=== PATIENT | female | born 1960 | race Caucasian/White ===

== ENCOUNTER 2022-09-28 20:34 | Emergency (ER) | payer BC, SELFPAY ==
[2022-09-28 20:38] VITALS: BP 169/98; PULSE 92; RESP 18; TEMP 36.6; O2SAT 96; BMI 32.0
--- NOTE | 2022-09-28 20:58 | US_ITS ---
The [address] [address] Patient Name: CARROLL HARDEN MRN: [id number] date: 1960 Sex: F Assigned Patient Location: ER Current Patient Location: ED.MAIN Accession/Order Number: [id number] Exam Date: 09/28/2022 21:01 Report Date: 09/28/2022 23:51 At the request of: REBECA TRAN Procedure: US venous doppler LE LT EXAM: US venous doppler LE LT HISTORY: leg pain COMPARISON: None. TECHNIQUE: High resolution sonography of the left lower extremity and the right iliac vein was performed. FINDINGS: Compression sonography of the right external iliac vein and the left extremity iliac, common femoral, superficial femoral, greater saphenous, small saphenous, popliteal, posterior tibial, peroneal, and anterior tibial veins was performed. These demonstrate normal compression. Duplex Doppler interrogation of these venous segments shows normal waveforms. No abnormal intraluminal echoes are identified to suggest thrombus. IMPRESSION: 1. No evidence of DVT in the imaged left lower extremity lower or right external iliac vein is seen. Electronically authenticated by: Dio MUNIZ Date: 09/28/2022 23:51
--- NOTE | 2022-09-28 21:00 | ED.GENADUL1 ---
HPI - General Adult General Chief complaint: Extremity Injury, Lower Stated complaint: LEFT KNEE PAIN Time Seen by Provider: 09/28/22 20:52 Source: patient Mode of arrival: Wheelchair Limitations: no limitations History of Present Illness HPI narrative: Patient is a 62-year-old female who is presenting to the Emergency Room today with chief complaint of left posterior lower thigh pain, knee pain that radiates down into her left calf. Patient was sent to the Emergency Room by her orthopedic surgeon, Dr. Smith to have a ultrasound done of her left leg to rule out blood clot. Patient takes no blood thinners. Patient has no history of blood clots. Patient has no chest pain or shortness of breath. Patient has minimal swelling to left leg compared to the right. Patient's incisions on the right looks clean, dry, intact. Patient has a follow-up appointment with orthopedic surgeon on Tuesday. Related Data Home Medications Medication Instructions Recorded Confirmed atenolol 50 mg tablet 50 mg PO DAILY 09/28/22 09/28/22 citalopram 40 mg tablet (Celexa) 40 mg PO DAILY 09/28/22 09/28/22 clonazepam 0.5 mg tablet 0.5 mg PO .3 tabs 09/28/22 09/28/22 fluconazole 100 mg tablet 100 mg PO Q24H 09/28/22 09/28/22 glimepiride 4 mg tablet 4 mg PO DAILY 09/28/22 09/28/22 levothyroxine 125 mcg tablet 125 mcg PO DAILY 09/28/22 09/28/22 (Synthroid) metformin 500 mg tablet 500 mg PO BID 09/28/22 09/28/22 nabumetone 1,000 mg tablet 1,000 mg PO BID 09/28/22 09/28/22 (Relafen DS) oxycodone-acetaminophen 5 mg-325 1 tab PO Q6H PRN pain 09/28/22 09/28/22 mg tablet pravastatin 40 mg tablet 40 mg PO DAILY 09/28/22 09/28/22 tizanidine 4 mg tablet 4 mg PO .hs PRN muscle spasticity 09/28/22 09/28/22 Allergies Allergy/AdvReac Type Severity Reaction Status Date / Time hydromorphone [From Dilaudid] Allergy Intermediate Verified 09/28/22 20:42 iodine Allergy Intermediate Verified 09/28/22 20:42 latex Allergy Intermediate Verified 09/28/22 20:42 meperidine [From Demerol] Allergy Intermediate Verified 09/28/22 20:42 sumatriptan [From Imitrex] Allergy Intermediate Verified 09/28/22 20:42 Review of Systems ROS Narrative All systems are negative except as noted/marked. All systems reviewed and otherwise negative. Exam Narrative Exam Narrative: Nurses note and vital signs reviewed and patient is not hypoxic. General: The patient appears well and in no apparent distress. Patient is resting comfortably on cart. Patient is not toxic, lethargic, or listless Skin: Warm, dry, no pallor noted. There is no rash noted. No petechiae, purpura. Head: Normocephalic, atraumatic Eye: Normal conjunctiva, no drainage, EOMI. PERRL Ears, Nose, Mouth, and Throat: oral mucosa is moist. Cardiovascular: Regular Rate and Rhythm, no murmur, gallop, rub Respiratory: Patient is in no distress, no accessory muscle use, lungs are clear to auscultation, no wheezing, rales or rhonchi GI: soft, Musculoskeletal: Patient has full range of motion of all of the extremities, no motor, sensory, or focal neurological deficits. Patient's surgical incisions are clean, dry, intact to the right knee. Patient has mild tenderness to palpation to the distal aspect of the left posterior thigh, lower 3rd of the posterior thigh. No rash. No pain to left popliteal fossa, no pain to the posterior calf of the left leg. Patient has full range of motion of her left leg with no difficulty or pain. Patient states that she feels a pain and tightness behind the left knee that radiates down her left Only when she walks. Neurological: A&O x3, normal speech Psychiatric: Cooperative Constitutional Vital Signs - 24 hr 09/28/22 20:38 Temperature 97.8 F Pulse Rate [Monitor] 92 H Respiratory Rate 18 Blood Pressure [Right Arm] 169/98 H Pulse Oximetry 96 Course Vital Signs Vital signs: Vital Signs Temperature 97.8 F 09/28/22 20:38 Pulse Rate 92 H 09/28/22 20:38 Respiratory Rate 18 09/28/22 20:38 Blood Pressure 169/98 H 09/28/22 20:38 Pulse Oximetry 96 09/28/22 20:38 Temperature 97.8 F 09/28/22 20:38 Pulse Rate 92 H 09/28/22 20:38 Respiratory Rate 18 09/28/22 20:38 Blood Pressure 169/98 H 09/28/22 20:38 Pulse Oximetry 96 09/28/22 20:38 Medical Decision Making MDM Narrative Medical decision making narrative: Patient had a ultrasound of the left lower extremity That showed no acute deep vein thrombosis. Patient will continue symptomatically treatment at home. Patient is weightbearing as tolerated. Patient has crutches that she is using. Patient has a follow-up visit with Dr. Smith in the office on Tuesday. Preliminary report From ultrasound on left leg shows no deep vein thrombosis. Official report is still pending. Discharge Plan Discharge Chief Complaint: Extremity Injury, Lower Clinical Impression: Left leg pain Patient Disposition: Home, Self-Care Time of Disposition Decision: 21:36 Condition: Fair Prescriptions / Home Meds: No Action clonazepam 0.5 mg tablet 0.5 mg PO .3 tabs fluconazole 100 mg tablet 100 mg PO Q24H oxycodone-acetaminophen 5-325 mg tablet 1 tab PO Q6H PRN (Reason: pain) tizanidine 4 mg tablet 4 mg PO .hs PRN (Reason: muscle spasticity) atenolol 50 mg tablet 50 mg PO DAILY levothyroxine [Synthroid] 125 mcg tablet 125 mcg PO DAILY citalopram [Celexa] 40 mg tablet 40 mg PO DAILY pravastatin 40 mg tablet 40 mg PO DAILY Relafen DS 1,000 mg tablet 1,000 mg PO BID metformin 500 mg tablet 500 mg PO BID glimepiride 4 mg tablet 4 mg PO DAILY Instructions: Knee Pain (ED), Arthralgia (ED), Leg Pain (ED) Additional Instructions: Continue to ice, use anti-inflammatories, follow-up with Dr. Smith in the office as scheduled on Tuesday. Stand Alone Forms: Portal Instructions Referrals: MICA VILLASENOR [Primary Care Provider] - 1 week
== END 2022-09-28 21:36 | disposition home or self-care (01) ==
PROVIDERS: Emergency Provider Emergency Medicine; PCP Internal Medicine
DX: Z79.899 Other long term (current) drug therapy (principal); M79.605 Pain in left leg; Z79.890 Hormone replacement therapy
CPT/HCPCS: 93971; 99284

== ENCOUNTER 2022-12-17 07:53 | Emergency (ER) | payer BC, SELFPAY ==
[2022-12-17] VITALS (32 sets, daily range): BP systolic 85–137; BP diastolic 43–74; PULSE 64–71; RESP 10–19; TEMP 36.3; O2SAT 88–99; BMI 26.5
[2022-12-17 08:06] LABS: Glucometer 211 mg/dL (74-106)
--- NOTE | 2022-12-17 08:08 | ED.DIZZY1 ---
HPI - Dizziness General Chief Complaint: Neuro Symptoms/Deficit Stated Complaint: DIZZINESS Time Seen by Provider: 12/17/22 08:08 Source: patient and friend Mode of arrival: Wheelchair Limitations: no limitations History of Present Illness HPI Narrative: Patient presents to emergency department with a complaint of dizzy, lightheaded and slurring of her speech. Patient states her last unwellness yesterday at 8:30 PM. 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 Symptoms improved she went home later and slept without any problems or concerns this morning when she woke up she was having the symptoms again. Symptoms have not improved or resolved. Patient denies any paresthesias, or weakness. She denies any visual disturbance, or headache. She denies any nausea, vomiting, diarrhea. She states the pressure is always low. Patient's glucose was 211.She states last night she took tizanidine 4 mg and clonazepam 0.5 mg. She states she always takes the 2nd night and never has any problems with it. Patient states she has anaphylaxis with iodine. She states she's never had a CT done with contrast. However looking through the records the patient had an MRI of the brain and 02/21/2020 and has CTAs of the neck and head 05/05/2020. Patient was seen by Dr. Barrett at that time. Patient states she was having a transient ischemic attack at that time. Patient states that the symptoms presented just like they did today. Related Data Home Medications Medication Instructions Recorded Confirmed atenolol 50 mg tablet 50 mg PO DAILY 09/28/22 09/28/22 citalopram 40 mg tablet (Celexa) 40 mg PO DAILY 09/28/22 09/28/22 clonazepam 0.5 mg tablet 0.5 mg PO .3 tabs 09/28/22 09/28/22 fluconazole 100 mg tablet 100 mg PO Q24H 09/28/22 09/28/22 glimepiride 4 mg tablet 4 mg PO DAILY 09/28/22 09/28/22 levothyroxine 125 mcg tablet 125 mcg PO DAILY 09/28/22 09/28/22 (Synthroid) metformin 500 mg tablet 500 mg PO BID 09/28/22 09/28/22 nabumetone 1,000 mg tablet 1,000 mg PO BID 09/28/22 09/28/22 (Relafen DS) oxycodone-acetaminophen 5 mg-325 1 tab PO Q6H PRN pain 09/28/22 09/28/22 mg tablet pravastatin 40 mg tablet 40 mg PO DAILY 09/28/22 09/28/22 tizanidine 4 mg tablet 4 mg PO .hs PRN muscle spasticity 09/28/22 09/28/22 Allergies Allergy/AdvReac Type Severity Reaction Status Date / Time hydromorphone [From Dilaudid] Allergy Intermediate Verified 09/28/22 20:42 iodine Allergy Intermediate Verified 09/28/22 20:42 latex Allergy Intermediate Verified 09/28/22 20:42 meperidine [From Demerol] Allergy Intermediate Verified 09/28/22 20:42 sumatriptan [From Imitrex] Allergy Intermediate Verified 09/28/22 20:42 Review of Systems ROS Status of ROS 10 or more systems reviewed and unremarkable except as noted in history and below Exam Narrative Exam Narrative: Nurses notes and vital signs reviewed and patient is not hypoxic. General: Nontoxic, Well-appearing and in no apparent distress. Skin: Warm, dry, no pallor noted. No Rash Head: Normocephalic, atraumatic. Neck: Supple, non-tender. Eye: Pupils are equal, round and EOMI. No scleral icterus. Ears, Nose, Mouth, and Throat: TM clear, no posterior oropharynx erythema or nasal mucosal hypertrophy, uvula is mid-line Oral mucosa is moist Cardiovascular: Regular Rate and Rhythm without murmur, gallop or rub. Respiratory: No accessory muscle use or respiratory distress. Lungs are clear to auscultation, no wheezing, rales or rhonchi Chest Wall: no tenderness Back: No midline thoracic or lumbar vertebral tenderness. No CVA tenderness Musculoskeletal: normal ROM, no calf or popliteal tenderness, no lower extremity edema/swelling GI: Abdomen is soft, non-distended. Normal bowel sounds. No masses appreciated. No tenderness to palpation. No rebound, guarding, or rigidity noted. Neurological: A&O x4. NIHSS=1 mild dysarthria, No cranial nerve dysfunction observed. No truncal ataxia. Moves all extremities. Sensation intact. Psychiatric: Cooperative and interactive. Normal mood and affect. Constitutional Vital Signs, click to edit/add: Last Vital Signs Temp 97.4 F L 12/17/22 07:55 Pulse 66 12/17/22 10:20 Resp 14 12/17/22 10:20 BP 131/68 12/17/22 12:15 Pulse Ox 97 12/17/22 12:20 O2 Del Method Room Air 12/17/22 07:55 Course Vital Signs Vital signs: Vital Signs Temperature 97.4 F L 12/17/22 07:55 Pulse Rate 71 12/17/22 07:55 Respiratory Rate 18 12/17/22 07:55 Blood Pressure 92/54 12/17/22 07:55 Pulse Oximetry 95 12/17/22 07:55 Oxygen Delivery Method Room Air 12/17/22 07:55 Temperature 97.4 F L 12/17/22 07:55 Pulse Rate 66 12/17/22 10:20 Respiratory Rate 14 12/17/22 10:20 Blood Pressure 131/68 12/17/22 12:15 Pulse Oximetry 97 12/17/22 12:20 Oxygen Delivery Method Room Air 12/17/22 07:55 MDM - Dizziness MDM Narrative Medical decision making narrative: CT scan of the brain was obtained and is unremarkable. The patient has an ALLERGY to iodine and states she has sustained anaphylaxis from iodine. She thinks in the past she had a CAT scan with contrast and she developed hives. Patient's ABCD squared score is 4. The patient still has dysarthria her NIH SS is 1. Since I cannot to a CTA at this time I will at least need to do an emergent MRI of the brain. I discussed this with Dr. Dash who advised that the next best step would also be to do the MRI. The stroke doctor from paramedics at [place] was contacted who advised to order an MRI of the patient and they will evaluate the patient via tele-stroke. Patient is not a TPA candidate. Patient stated last time she had a mini stroke she had the same exact type of symptoms. There are other confounding factors to the patient's presentation which include her low blood pressure, and the fact that she took tizanidine and clonidine last night. She was given 2 L normal saline, And magnesium was replaced with 2 g IV. MRI of the brain is unremarkable. Patient's status improved with IV fluids and magnesium. Patient was discussed with Dr. Uriostegui who advised is not likely secondary to a CVA but most likely secondary to her medications, hypertension, medication side effects, and low magnesium. He advised the patient could be discharged home. Patient has improved with correction of all the electrolyte imbalance. Testing was repeated and has normalized. At this time the patient is without objective evidence of an acute process requiring hospitalization or inpatient management. The patient has remained hemodynamically stable. No additional indication for emergent studies at this time. I answered all questions. Discussed discharge instructions including standard anticipatory guidance and what should prompt a return to the emergency department, including if they get worse are not getting better or develops any new or concerning symptoms. I've given them specific time frame in which to follow-up, and who to follow-up with. The patient demonstrates understanding. Patient is nontoxic and stable for discharge with outpatient follow-up. This note was created with the assistance of a speech recognition program. Although the intention is to generate documents that actually reflects the content of the visit, no guarantees can be provided that every mistake has been identified and corrected by editing. Differential Diagnosis Differential diagnosis: Likely adverse reaction to drug, orthostatic hypotension, cerebrovascular accident and transient cerebral ischemia Medical Records Attestation: I reviewed the patient's medical records. Lab Data Attestation: I reviewed the patient's lab results. Labs: Lab Results 12/17/22 12/17/22 12/17/22 Range/Units 08:00 08:43 11:00 WBC 5.6 (4.0-11.0) 10^3/uL RBC 4.09 L (4.20-5.40) 10^6/uL Hgb 12.2 (12.0-16.0) g/dL Hct 36.4 (36.0-48.0) % MCV 89.0 (81.0-99.0) fL MCH 29.8 (26.7-34.0) pg MCHC 33.5 (29.9-35.2) g/dL RDW 12.2 (11.0-15.0) % Plt Count 181 (150-450) 10^3/uL MPV 9.7 (9.5-13.5) fL Neut % (Auto) 53.2 (43.0-75.0) % Lymph % (Auto) 30.5 (20.5-60.0) % [place] % (Auto) 7.3 (1.7-12.0) % Eos % (Auto) 7.7 H (0.9-7.0) % Baso % (Auto) 0.9 (0.2-2.0) % Neut # (Auto) 3.0 (1.4-6.5) 10^3/uL Lymph # (Auto) 1.7 (1.2-3.8) 10^3/uL [place] # (Auto) 0.4 (0.3-0.8) 10^3/uL Eos # (Auto) 0.4 (0.0-0.7) 10^3/uL Baso # (Auto) 0.1 (0.0-0.1) 10^3/uL Abs Immat Gran (auto) 0.02 (0.00-0.03) 10^3/uL Imm/Tot Granulo (auto) 0.4 (0.0-0.5) % Sodium 137 (136-145) mmol/L Potassium 4.5 (3.5-5.1) mmol/L Chloride 100 (98-107) mmol/L Carbon Dioxide 24.7 (21.0-32.0) mmol/L Anion Gap 16.8 BUN 17.0 (7.0-18.0) mg/dL Creatinine 1.17 H (0.55-1.02) mg/dL Est GFR ( Amer) 57 L (>=60) Est GFR (Non-Af Amer) 47 L (>=60) BUN/Creatinine Ratio 14.5 Glucose 221 H (74-106) mg/dL Lactate 3.3 H* (0.4-2.0) mmol/L Calcium 8.4 L (8.5-10.1) mg/dL Magnesium 1.3 L (1.8-2.4) mg/dL Total Bilirubin 0.6 (0.2-1.0) mg/dL AST 19 (15-37) U/L ALT 34 (14-59) U/L Alkaline Phosphatase 77 (46-116) U/L Troponin I High Sens 4.6 (4.0-51.3) pg/mL Total Protein 7.0 (6.4-8.2) g/dL Albumin 3.6 (3.4-5.0) g/dL Globulin 3.4 g/dL Albumin/Globulin Ratio 1.1 TSH 2.649 (0.358-3.740) uIU/mL Urine Color Lt. yellow (YELLOW) Urine Clarity Clear (CLEAR) Urine pH 5.5 (5.0-9.0) Ur Specific [place] 1.010 (1.005-1.025) Urine Protein Negative (NEG/TRACE) mg/dL Urine Glucose (UA) Negative (NEGATIVE) mg/dL Urine Ketones Negative (NEGATIVE) mg/dL Urine Occult Blood Negative (NEGATIVE) Urine Nitrite Negative (NEGATIVE) Urine Bilirubin Negative (NEGATIVE) Urine Urobilinogen 0.2 (0.2-1.0) EU/dL Ur Leukocyte Esterase Negative (NEGATIVE) Urine Opiates Screen Negative (NEGATIVE) Ur Buprenorphine Scrn Negative (NEGATIVE) Ur Oxycodone Screen Negative (NEGATIVE) Urine Methadone Screen Negative (NEGATIVE) Ur Propoxyphene Screen Negative (NEGATIVE) Ur Barbiturates Screen Negative (NEGATIVE) U Tricyclic Antidepress Negative (NEGATIVE) Ur Phencyclidine Scrn Negative (NEGATIVE) Ur Amphetamines Screen Negative (NEGATIVE) U Methamphetamines Scrn Negative (NEGATIVE) U Benzodiazepines Scrn Negative (NEGATIVE) Urine Cocaine Screen Negative (NEGATIVE) U Cannabinoids Screen Negative (NEGATIVE) Ethanol Quant <3 mg/dL POC Glucose 211 H (74-106) mg/dL 12/17/22 Range/Units 11:43 WBC (4.0-11.0) 10^3/uL RBC (4.20-5.40) 10^6/uL Hgb (12.0-16.0) g/dL Hct (36.0-48.0) % MCV (81.0-99.0) fL MCH (26.7-34.0) pg MCHC (29.9-35.2) g/dL RDW (11.0-15.0) % Plt Count (150-450) 10^3/uL MPV (9.5-13.5) fL Neut % (Auto) (43.0-75.0) % Lymph % (Auto) (20.5-60.0) % [place] % (Auto) (1.7-12.0) % Eos % (Auto) (0.9-7.0) % Baso % (Auto) (0.2-2.0) % Neut # (Auto) (1.4-6.5) 10^3/uL Lymph # (Auto) (1.2-3.8) 10^3/uL [place] # (Auto) (0.3-0.8) 10^3/uL Eos # (Auto) (0.0-0.7) 10^3/uL Baso # (Auto) (0.0-0.1) 10^3/uL Abs Immat Gran (auto) (0.00-0.03) 10^3/uL Imm/Tot Granulo (auto) (0.0-0.5) % Sodium (136-145) mmol/L Potassium (3.5-5.1) mmol/L Chloride (98-107) mmol/L Carbon Dioxide (21.0-32.0) mmol/L Anion Gap BUN (7.0-18.0) mg/dL Creatinine (0.55-1.02) mg/dL Est GFR ( Amer) (>=60) Est GFR (Non-Af Amer) (>=60) BUN/Creatinine Ratio Glucose (74-106) mg/dL Lactate 2.1 H (0.4-2.0) mmol/L Calcium (8.5-10.1) mg/dL Magnesium (1.8-2.4) mg/dL Total Bilirubin (0.2-1.0) mg/dL AST (15-37) U/L ALT (14-59) U/L Alkaline Phosphatase (46-116) U/L Troponin I High Sens (4.0-51.3) pg/mL Total Protein (6.4-8.2) g/dL Albumin (3.4-5.0) g/dL Globulin g/dL Albumin/Globulin Ratio TSH (0.358-3.740) uIU/mL Urine Color (YELLOW) Urine Clarity (CLEAR) Urine pH (5.0-9.0) Ur Specific [place] (1.005-1.025) Urine Protein (NEG/TRACE) mg/dL Urine Glucose (UA) (NEGATIVE) mg/dL Urine Ketones (NEGATIVE) mg/dL Urine Occult Blood (NEGATIVE) Urine Nitrite (NEGATIVE) Urine Bilirubin (NEGATIVE) Urine Urobilinogen (0.2-1.0) EU/dL Ur Leukocyte Esterase (NEGATIVE) Urine Opiates Screen (NEGATIVE) Ur Buprenorphine Scrn (NEGATIVE) Ur Oxycodone Screen (NEGATIVE) Urine Methadone Screen (NEGATIVE) Ur Propoxyphene Screen (NEGATIVE) Ur Barbiturates Screen (NEGATIVE) U Tricyclic Antidepress (NEGATIVE) Ur Phencyclidine Scrn (NEGATIVE) Ur Amphetamines Screen (NEGATIVE) U Methamphetamines Scrn (NEGATIVE) U Benzodiazepines Scrn (NEGATIVE) Urine Cocaine Screen (NEGATIVE) U Cannabinoids Screen (NEGATIVE) Ethanol Quant mg/dL POC Glucose (74-106) mg/dL ECG Data Attestation: I personally reviewed and interpreted this ECG as follows: Critical Care Time Critical Care Time Critical Care Time: Yes (35) Total Critical Care Time: 35 Attestation: Critical Care Time: 35 minutes, critical care time is separate from any procedures that are performed. The following was considered in the determination of critical care but not limited to the level medical decision-making, intensive cardiac and/or respiratory monitor, frequent vital sign monitoring, evaluation of laboratory studies, evaluation of a radiographic studies, oxygen monitoring and constant monitoring. Discharge Plan Discharge Chief Complaint: Neuro Symptoms/Deficit Clinical Impression: Dysarthria, Dehydration, Hypomagnesemia Patient Disposition: Home, Self-Care Time of Disposition Decision: 12:26 Condition: Good Mode of Transportation: Private Vehicle Prescriptions / Home Meds: No Action clonazepam 0.5 mg tablet 0.5 mg PO .3 tabs fluconazole 100 mg tablet 100 mg PO Q24H oxycodone-acetaminophen 5-325 mg tablet 1 tab PO Q6H PRN (Reason: pain) tizanidine 4 mg tablet 4 mg PO .hs PRN (Reason: muscle spasticity) atenolol 50 mg tablet 50 mg PO DAILY levothyroxine [Synthroid] 125 mcg tablet 125 mcg PO DAILY citalopram [Celexa] 40 mg tablet 40 mg PO DAILY pravastatin 40 mg tablet 40 mg PO DAILY Relafen DS 1,000 mg tablet 1,000 mg PO BID metformin 500 mg tablet 500 mg PO BID glimepiride 4 mg tablet 4 mg PO DAILY Instructions: Dehydration (ED), Hypomagnesemia (ED), Altered Mental Status (ED) Stand Alone Forms: Portal Instructions Referrals: Robert Cruz DO [Primary Care Provider] - 1 week Discharge Date/Time: 12/17/22 12:40
--- NOTE | 2022-12-17 08:17 | XR_ITS ---
The [address] [address] Patient Name: CARROLL HARDEN MRN: [id number] date: 1960 Sex: F Assigned Patient Location: ER Current Patient Location: ER Accession/Order Number: [id number] Exam Date: 12/17/2022 08:32 Report Date: 12/17/2022 08:44 At the request of: NAI VERMA Procedure: XR chest 1V EXAMINATION: XR chest 1V, 12/17/2022 8:32 AM EDT HISTORY: cva COMPARISON: None. TECHNIQUE: AP portable view of the chest performed. FINDINGS: Cervical spinal hardware is noted, as are bilateral shoulder arthroplasties. Cardiomediastinal silhouette is within normal limits. The lungs are clear. No large pleural effusion, or pneumothorax. XR/XR chest 1V IMPRESSION: 1. No acute cardiopulmonary abnormality. Electronically authenticated by: ZAKIYA GONZALEZ Date: 12/17/2022 08:44
--- NOTE | 2022-12-17 08:17 | ECG_ITS ---
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
--- NOTE | 2022-12-17 08:31 | CT_ITS ---
The [place] [id number] Patient Name: CARROLL HARDEN MRN: [id number] date: 1960 Sex: F Assigned Patient Location: ER Current Patient Location: ER Accession/Order Number: [id number] Exam Date: 12/17/2022 08:25 Report Date: 12/17/2022 08:48 At the request of: NAI VERMA Procedure: CT stroke head/brain wo con CT stroke head/brain wo con, 12/17/2022 8:25 AM EDT, [place]001 INDICATION: slurred speech dizziness. COMPARISON: CTA of the head from 05/05/2020 TECHNIQUE: CT images of the brain from skull base to vertex, including portions of the face and sinuses, were obtained without contrast. Supplemental 2D reformatted images were generated and reviewed as needed. Dose reduction techniques were achieved by using automated exposure control and/or adjustment of mA and/or kV according to patient size and/or use of iterative reconstruction technique. FINDINGS: The ventricles and sulci are within normal limits for the patient's age. No significant white matter disease or acute ischemia. No mass effect, acute hemorrhage, midline shift, hydrocephalus or exta-axial fluid collection. The basal cisterns are patent. The calvarium appears intact. Hyperostosis along the inner table is again seen in the left frontal region, of doubtful clinical significance. The visualized paranasal sinuses are clear. The mastoids are clear. CT/CT stroke head/brain wo con IMPRESSION: No CT evidence of acute intracranial abnormality. No significant interval change is seen. Electronically authenticated by: ABBI ENCARNACION Date: 12/17/2022 08:48
[2022-12-17] MEDS: 0.9 % SODIUM CHLORIDE 1,000 ML 999 ML IV (08:35)
[2022-12-17 08:51] LABS: Basophils Absolute Auto 0.1 10^3/uL (0.0-0.1); Basophils Percent Auto 0.9 % (0.2-2.0); Eosinophils Absolute Auto 0.4 10^3/uL (0.0-0.7); Eosinophils Percent Auto 7.7 % (0.9-7.0); Hematocrit 36.4 % (36.0-48.0); Hemoglobin 12.2 g/dL (12.0-16.0); Immature Granulocytes Abs Auto 0.02 10^3/uL (0.00-0.03); Immature Granulocytes Pct Auto 0.4 % (0.0-0.5); Lymphocytes Absolute Auto 1.7 10^3/uL (1.2-3.8); Lymphocytes Percent Auto 30.5 % (20.5-60.0); Mean Corpuscular HGB Conc 33.5 g/dL (29.9-35.2); Mean Corpuscular Hemoglobin 29.8 pg (26.7-34.0); Mean Platelet Volume 9.7 fL (9.5-13.5); Monocytes Absolute Auto 0.4 10^3/uL (0.3-0.8); Monocytes Percent Auto 7.3 % (1.7-12.0); Neutrophils Percent Auto 53.2 % (43.0-75.0); Platelet Count 181 10^3/uL (150-450); Red Blood Count 4.09 10^6/uL (4.20-5.40); Red Cell Distribution Width 12.2 % (11.0-15.0); White Blood Count 5.6 10^3/uL (4.0-11.0)
[2022-12-17 09:14] LABS: Alanine Aminotransferase 34 U/L (14-59); Albumin Globulin Ratio 1.1; Albumin Level 3.6 g/dL (3.4-5.0); Alkaline Phosphatase 77 U/L (46-116); Anion Gap 16.8; Aspartate Amino Transferase 19 U/L (15-37); BUN Creatinine Ratio 14.5; Bilirubin Total 0.6 mg/dL (0.2-1.0); Calcium 8.4 mg/dL (8.5-10.1); Carbon Dioxide 24.7 mmol/L (21.0-32.0); Chloride 100 mmol/L (98-107); Estimated GFR (African America 57 (>=60); Estimated GFR (Non-African Ame 47 (>=60); Ethanol <3 mg/dL; Globulin 3.4 g/dL; Glucose 221 mg/dL (74-106); Magnesium 1.3 mg/dL (1.8-2.4); Potassium 4.5 mmol/L (3.5-5.1); Sodium 137 mmol/L (136-145); Thyroid Stimulating Hormone 2.649 uIU/mL (0.358-3.740); Troponin I High Sensitivity 4.6 pg/mL (4.0-51.3)
[2022-12-17 09:21] LABS: Lactate/Lactic Acid 3.3 mmol/L (0.4-2.0)
[2022-12-17] MEDS: MAGNESIUM SULFATE IN WATER 50 ML IV (09:43)
--- NOTE | 2022-12-17 10:20 | MR_ITS ---
[facility] [id number] Patient Name: CARROLL HARDEN MRN: [id number] date: 1960 Sex: F Assigned Patient Location: ER Current Patient Location: ER Accession/Order Number: [id number] Exam Date: 12/17/2022 10:25 Report Date: 12/17/2022 11:23 At the request of: NAI VERMA Procedure: MR head/brain wo con MR head/brain wo con, 12/17/2022 10:25 AM EDT, [facility]001 INDICATION: cva-dysarthria and dizziness. COMPARISON: Head CT obtained earlier on the same day TECHNIQUE: Multiplanar, multisequence MR imaging of the entire brain was performed without contrast. FINDINGS: The ventricles and sulci are within normal limits for the patient's age. The white matter tracts and basal ganglia appear unremarkable. No foci of abnormal diffusion are identified. There is no evidence of mass effect, acute hemorrhage, midline shift, hydrocephalus or extra-axial fluid collection. The basal cisterns are patent. Flow void is seen within the basilar and internal carotid arteries. There is minimal mucosal thickening in the right maxillary antrum. There is minimal fluid in the left mastoid air cells. MR/MR head/brain wo con IMPRESSION: Unremarkable brain. No acute intracranial process is seen. Trace paranasal sinus disease and minimal left mastoid effusion. Electronically authenticated by: ABBI ENCARNACION Date: 12/17/2022 11:23
[2022-12-17] MEDS: 0.9 % SODIUM CHLORIDE 1,000 ML 100 ML IV (11:13)
[2022-12-17 11:48] LABS: Bilirubin Urine NEGATIVE (NEGATIVE); Blood Urine NEGATIVE (NEGATIVE); Clarity Urine CLEAR (CLEAR); Color Urine LT. YELLOW (YELLOW); Glucose Urine UA NEGATIVE (NEGATIVE); Ketones Urine NEGATIVE (NEGATIVE); Leukocyte Esterase Urine NEGATIVE (NEGATIVE); Nitrite Urine NEGATIVE (NEGATIVE); Protein Urine NEGATIVE (NEG/TRACE); Urobilinogen Urine 0.2 EU/dL (0.2-1.0); pH Urine 5.5 (5.0-9.0)
[2022-12-17 11:51] LABS: Urine Microscopic Indicated NO
[2022-12-17 12:10] LABS: Amphetamine Screen Urine NEGATIVE (NEGATIVE); Barbiturates Screen Urine NEGATIVE (NEGATIVE); Benzodiazepines Screen Urine NEGATIVE (NEGATIVE); Buprenorphine Screen Urine NEGATIVE (NEGATIVE); Cannabinoid Screen Urine NEGATIVE (NEGATIVE); Cocaine Screen Urine NEGATIVE (NEGATIVE); Methadone Screen Urine NEGATIVE (NEGATIVE); Methamphetamines Screen Urine NEGATIVE (NEGATIVE); Opiate Screen Urine NEGATIVE (NEGATIVE); Oxycodone Screen Urine NEGATIVE (NEGATIVE); Phencyclidine Screen Urine NEGATIVE (NEGATIVE); Tricyclic Antidepressant Urine NEGATIVE (NEGATIVE)
[2022-12-17 12:18] LABS: Lactate/Lactic Acid 2.1 mmol/L (0.4-2.0)
--- NOTE | 2022-12-17 12:42 | PC.NURSE ---
this nurse asks dr echols if patient could drive home and dr echols states yes pt states she feels much better and denies need to be wheeled to her department at this time
== END 2022-12-17 12:40 | disposition home or self-care (01) ==
PROVIDERS: Emergency Provider Emergency Medicine; PCP Internal Medicine
DX: R47.1 Dysarthria and anarthria (principal); E83.42 Hypomagnesemia; E86.0 Dehydration; Z79.899 Other long term (current) drug therapy; Z79.890 Hormone replacement therapy
CPT/HCPCS: 36415; 70450; 70551; 71045; 80053; 80307; 80320; 81003; 83605; 83735; 84443; 84484; 85025; 93005; 96361; 96365; 99285

== ENCOUNTER 2023-04-01 09:56 | Outpatient (OUT) | payer BC, SELFPAY ==
--- NOTE | 2023-04-01 09:58 | MM_ITS ---
Patient Name: CARROLL HARDEN MR#: [id number] : 1960 Exam Date: 04/01/2023 Ordering Doctor: DR Robert Cruz D.O. RADIOLOGY REPORT PROCEDURE: MM TOMOSYNTHESIS SCREENING BI COMPARISON: MG MAMM SCREEN 3D LEX CAD, 03/19/2022. MG MAMM SCREEN 3D LEX CAD, 03/02/2021. INDICATIONS: Screening Calculator Name NCI Breast Cancer Risk Assessment Tool 5 Year Breast Cancer Risk 1.50% Lifetime Breast Cancer Risk 6.60% Personal Breast Cancer No Personal Ovarian Cancer No Treatments None Family Cancers None LOCATION: [facility] BREAST COMPOSITION: Scattered areas fibroglandular density. FINDINGS: DIAGNOSTIC CATEGORY 1--NEGATIVE. NO CHANGE FROM COMPARISON ASSESSMENT. RIGHT BREAST: No significant suspicious finding. LEFT BREAST: No significant suspicious finding. RECOMMENDATIONS: ROUTINE MAMMOGRAM AND CLINICAL EVALUATION IN 12 MONTHS. PLEASE NOTE: A NORMAL MAMMOGRAM DOES NOT EXCLUDE THE POSSIBILITY OF BREAST CANCER. A CLINICALLY SUSPICIOUS PALPABLE LUMP SHOULD BE BIOPSIED. Dictated by: Raghav Dash MD on 04/01/2023 at 13:30 Approved by: Raghav Dash MD on 04/01/2023 at 13:31
== END 2023-04-01 09:57 | disposition home or self-care (01) ==
LOC: MAMMO 09:56
PROVIDERS: PCP Internal Medicine; Visit Provider Internal Medicine
DX: Z12.31 Encounter for screening mammogram for malignant neoplasm of breast (principal)
CPT/HCPCS: 77063; 77067

== ENCOUNTER 2023-05-03 08:04 | Outpatient (OUT) | payer BC, SELFPAY ==
--- OUTSIDE RECORDS SUMMARY | 2023-05-03 08:07 | XMS_ITS | CCD ---
Author Name Unknown Address [address] [place] [address] Organization [facility] Care Team Providers Care Surgeon/President Name Role Phone JENNA LENTZ Admitting Unavailable JENNA LENTZ Attending Unavailable LISANDRO BLAKE Consulting Unavailable JENNA LENTZ Referring Unavailable Robert Cruz Unavailable HAMILTON, DR NINO Admitting Unavailable BALL, DR NINO Attending Unavailable BALL, DR NINO Consulting Unavailable BALL, DR NINO Primary Care Unavailable STEPANIC, DR BLACKWELL Attending Unavailable STEPANIC, DR BLACKWELL Consulting Unavailable STEPANIC, DR BLACKWELL Admitting Unavailable BALL, DR NINO Primary Care Unavailable ZIEBER, DR BERNY Mccabe Consulting Unavailable BALL, DR NINO Primary Care Unavailable BALL, DR NINO Admitting Unavailable BALL, DR NINO Attending Unavailable BALL, DR NINO Consulting Unavailable ZIEBREECE, DR BERNY Mccabe Consulting Unavailable BALL, DR NINO Consulting Unavailable BALL, DR NINO Primary Care Unavailable BALL, DR NINO Admitting Unavailable BALL, DR NINO Attending Unavailable ZIEBER, DR BERNY Mccabe Consulting Unavailable BALL, DR NINO Consulting Unavailable BALL, DR NINO Primary Care Unavailable BALL, DR NINO Admitting Unavailable BALL, DR NINO Attending Unavailable BALL, DR NINO Primary Care Unavailable YESSEINA WATSON Attending Unavailable WALTER, YESSENIA Consulting Unavailable YESSENIA WATSON Admitting Unavailable PRISCILLA ., DR MAZARIEGOS Attending Unavailable HOTerrence ., DR MAZARIEGOS Consulting Unavailable PRISCILLA ., DR MAZARIEGOS Admitting Unavailable HAMILTON, DR NINO Primary Care Unavailable Allergies Allergy Classification Reported Allergen(s) Allergy Type Date of Onset Reaction(s) Facility (2 sources) Contrast media; Translations: [CONTRAST DYE] Propensity to adverse reactions to drug (disorder) 09-30-19 11 [facility] Other [place] Repository (2 sources) HYDROmorphone; Translations: [HYDROMORPHONE (BULK)] Drug Allergy 08-17-19 17 [facility] Repository (15 sources) Latex; Translations: [LATEX] Propensity to adverse reactions to drug (disorder) 09-30-19 11 Unknown [facility] Repository (2 sources) Meperidine; Translations: [MEPERIDINE (PF)] Drug Allergy 09-30-19 11 [facility] Repository (2 sources) Povidone-Iodine; Translations: [POVIDONE-IODINE] Drug Allergy 10-21-19 17 [facility] Repository (2 sources) SUMAtriptan; Translations: [SUMATRIPTAN SUCCINATE] Drug Allergy 09-30-19 11 [facility] Repository (2 sources) INFLUENZA VACCINE TRI-SP 09-10; Translations: [INFLUENZA VACCINE TRI-SP 09-10] Propensity to adverse reactions to drug (disorder) 09-30-19 11 [facility] Repository (3 sources) DHE; Translations: [DHE] Propensity to adverse reactions to drug (disorder) 10-24-19 13 [facility] Repository (12 sources) HYDROmorphone Drug Allergy Unknown [facility] Other (13 sources) Iodine; Translations: [iodine] Drug Allergy 10-24-19 13 Unknown [facility] Repository (12 sources) Meperidine Drug Allergy Unknown [facility] Other (12 sources) SUMAtriptan Drug Allergy Unknown [facility] Other (12 sources) Fluad Drug allergy Unknown [facility] Other (12 sources) DHEA Drug allergy Unknown [facility] Other (1 source) HYDROmorphone Drug Allergy 10-24-19 13 [facility] Repository (1 source) Meperidine Drug Allergy 10-24-19 13 [facility] Repository (1 source) Plasmin Drug Allergy 10-24-19 13 [facility] Repository (7 sources) influenza A virus (H1N1) antigen / influenza A virus (H3N2) antigen / influenza B virus antigen Drug Allergy 11-21-19 14 Comment:FLU VACCINE [facility] Other (7 sources) Contraindication to Flu Injection Propensity to adverse reactions 03-07-20 Comment:advers e rxn/side effects [facility] Other (3 sources) patient allergy list reviewed by nurse or physicia Propensity to adverse reactions 12-22-19 Comment:Done [facility] Other Medications Current Medications Medication Drug Class(es) Dates Sig (Normalized) Sig (Original) amitriptyline hydrochloride 10 mg oral tablet (2 sources) Tricyclic Antidepressant Start: 04-29-2023 take 1-2 tablets by mouth once at bedtime Amitriptyline HCl 10 MG 1 - 2 tablets at bedtime Orally q HS for 30 days Apr, Active atenolol 50 mg oral tablet (12 sources) beta-Adrenergic Maria Esther Start: 08-04-2022 take 1 tablet by mouth every twenty-four hours Atenolol 50 MG 1 tablet Orally Once a day Jul, Active citalopram 40 mg oral tablet (9 sources) Serotonin Reuptake Inhibitor Start: 10-22-2022 take 1 tablet by mouth every twenty-four hours Citalopram Hydrobromide 40 MG 1 tablet at bedtime Orally Once a day for 90 days Sep, Active clonazePAM 0.5 mg oral tablet (10 sources) Benzodiazepine Start: 12-28-2022 take 3 tablets by mouth once daily at bedtime clonazePAM 0.5 MG TAKE 3 TABLETS BY MOUTH AT BEDTIME Orally Once a day for 30 days Dec, Active Start: 09-30-2022 take [address] [facility] at bedtime clonazePAM 0.5 MG TAKE 3 TABLETS BY MOUTH AT BEDTIME for 30 days Sep, Active fluconazole 100 mg oral tablet (11 sources) Azole Antifungal Start: 09-14-2022 take 1 tablet by mouth every twenty-four hours Fluconazole 100 MG 1 tablet Orally daily for 7 days August, Active glimepiride 4 mg oral tablet (12 sources) Sulfonylurea take 1 tablet by mouth every twenty-four hours Glimepiride 4 MG 1 tablet with breakfast or the first main meal of the day Orally Once a day for 90 days Active levothyroxine sodium 0.125 mg oral tablet (12 sources) l-Thyroxine Start: 07-26-2022 take 1 tablet by mouth once daily in the morning Levothyroxine Sodium 125 MCG 1 tablet in the morning on an empty stomach Orally Once a day Jul, Active Start: 07-26-2022 take 1 tablet by fredrick th once daily in the morning Levothyroxine Sodium 125 MCG 1 tablet in the morning on an empty stomach Orally Once a day Jul, Active metFORMIN hydrochloride 500 mg oral tablet (10 sources) Biguanide Start: 10-13-2022 take 1 tablet by mouth twice daily metFORMIN HCl 500 MG 1 tablet with a meal Orally two times daily for 90 days Sep, Active naratriptan 2.5 mg oral tablet (2 sources) Serotonin-1b and Serotonin-1d Receptor Agonist Start: 04-29-2023 Naratriptan HCl 2.5 MG 1 tablet Orally Once a day PRN headache, may repeat after 2 hours for 30 days Apr, Active olmesartan medoxomil 20 mg oral tablet (5 sources) Angiotensin 2 Receptor Maria Esther Start: 12-23-2022 take 1 tablet by mouth every twenty-four hours Olmesartan Medoxomil 20 MG 1 tablet Orally Once a day for 30 days Nov, Active pravastatin sodium 20 mg oral tablet (12 sources) HMG-CoA Reductase Inhibitor Start: 08-04-2022 take 1 tablet by mouth every twenty-four hours Pravastatin Sodium 20 MG 1 tablet Orally Once a day for 30 days Jul, Active rizatriptan 10 mg disintegrating oral tablet (6 sources) Serotonin-1b and Serotonin-1d Receptor Agonist Start: 11-04-2022 take 1 tablet by mouth every two hours as needed for headache Maxalt-TOWER HOIST OPERATOR 10 MG 1 tablet Orally PRN headache, may repeat q 2 hours as needed, max 30mg/24 hours for 90 days Aware of allergy - patient has taken in past with no problems, please fill Oct, Active tiZANidine 4 mg oral tablet (10 sources) Central alpha-2 Adrenergic Agonist take 0.5-1 tablets by mouth once daily at bedtime tiZANidine HCl 4 MG TAKE 1/2 TO 1 TABLET BY MOUTH EVERY DAY AT BEDTIME for 90 Active Completed/Discontinued Medications Medication Drug Class(es) Dates Sig (Normalized) Sig (Original) cloNIDine hydrochloride 0.1 mg oral tablet (12 sources) Central alpha-2 Adrenergic Agonist Start: 08-04-2022 take 1 tablet by mouth twice daily as needed cloNIDine HCl 0.1 MG 1 tablet Orally twice daily Jul, Not-Taking/PRN Problems Active Problems Problem Classification Problem Date Documented Date Episodic/Chronic Anxiety disorders (12 sources) Generalized anxiety disorder; Translations: [Generalized anxiety disorder] Chronic Complications of surgical procedures or medical care (1 source) Postprocedural hypothyroidism; Translations: [POSTPROCEDURAL HYPOTHYROIDISM] Onset: 2 Chronic Diabetes mellitus with complications (19 sources) Type 2 diabetes mellitus; Translations: [Type 2 diabetes mellitus with hyperglycemia] Onset: 2 Chronic Diseases of white blood cells (12 sources) Leukopenia; Translations: [Decreased white blood cell count, unspecified] Chronic Disorders of lipid metabolism (13 sources) Hypercholesterolemia; Translations: [Pure hypercholesterolemia, unspecified] Chronic Diverticulosis and diverticulitis (12 sources) Diverticular disease of colon; Translations: [Diverticulosis of intestine, part unspecified, without perforation or abscess without bleeding] Chronic E Codes: Adverse effects of medical drugs (1 source) Adverse effect of other parasympatholytics [anticholinergics and antimuscarinics] and spasmolytics, subsequent encounter Episodic Esophageal disorders (12 sources) Gastro-esophageal reflux disease with esophagitis; Translations: [Gastroesophageal reflux disease with esophagitis without hemorrhage] Chronic Essential hypertension (16 sources) Essential hypertension; Translations: [Essential (primary) hypertension] Onset: 2 Chronic Headache; including migraine (4 sources) Chronic intractable migraine without aura; Translations: [Chronic migraine without aura, intractable, without status migrainosus] Chronic Joint disorders and dislocations; trauma-related (4 sources) Unspecified internal derangement of right knee; Translations: [UNS INTERNAL DERANGEMENT RIGHT KNEE] Onset: 3 Chronic Joint disorders and dislocations; trauma-related (1 source) Other tear of medial meniscus, current injury, right knee, initial encounter; Translations: [OTH TEAR MED MENSC CUR RT KNEE INIT] Onset: 3 Episodic Mood disorders (12 sources) Recurrent major depression in full remission; Translations: [Major depressive disorder, recurrent, in full remission] Chronic Mycoses (1 source) Candidiasis of skin and nail Episodic Nonmalignant breast conditions (12 sources) Lump in left breast; Translations: [Unspecified lump in the left breast, unspecified quadrant] Episodic Osteoarthritis (2 sources) Primary osteoarthritis, left shoulder; Translations: [Primary osteoarthritis, right shoulder] Onset: 9 Chronic Other nervous system disorders (1 source) Dysarthria and anarthria Episodi c Other non-traumatic joint disorders (1 source) Pain in right shoulder Episodic Other non-traumatic joint disorders (1 source) Pain in left shoulder Episodic Other nutritional; endocrine; and metabolic disorders (4 sources) Body mass index 30+ - obesity; Translations: [Body mass index (BMI) 33.0-33.9, adult] Chronic Other nutritional; endocrine; and metabolic disorders (4 sources) Obesity caused by energy imbalance; Translations: [Other obesity due to excess calories] Chronic Residual codes; unclassified (12 sources) Obstructive sleep apnea syndrome; Translations: [Obstructive sleep apnea (adult) (pediatric)] Chronic Residual codes; unclassified (1 source) Obstructive sleep apnea (adult) (pediatric) Chronic Spondylosis; intervertebral disc disorders; other back problems (20 sources) Lumbosacral spondylosis with radiculopathy; Translations: [Other spondylosis with radiculopathy, lumbosacral region] Chronic Spondylosis; intervertebral disc disorders; other back problems (1 source) Cervicalgia Episodic Sprains and strains (1 source) Strain of unspecified muscle(s) and tendon(s) at lower leg level, right leg, subsequent encounter Episodic Thyroid disorders (20 sources) Autoimmune thyroiditis; Translations: [Autoimmune thyroiditis] Onset: 2 Chronic Unclassified (3 sources) CONTACT W/AND (SUSP) EXPOS COVID-19; Translations: [CONTACT W/AND (SUSP) EXPOS COVID-19] Onset: 2 Past or Other Problems Problem Classification Problem Date Documented Da te Episodic/Chronic Esophageal disorders (1 source) Esophageal disorders Malaise and fatigue (4 sources) Other fatigue; Translations: [OTHER FATIGUE] Onset: 11-27-2021 Episodic Other screening for suspected conditions (not mental disorders or infectious disease) (4 sources) Encounter for screening mammogram for malignant neoplasm of breast; Translations: [ENC SCR MAMMO MALIG NEOPLASM BREAST] Onset: 03-19-2022 Episodic Unclassified (1 source) CONTACT W/AND (SUSP) EXPOS COVID-19; Translations: [CONTACT W/AND (SUSP) EXPOS COVID-19] Onset: 10-28-2021 Results Test Name Value Interpretation Reference Range Facility MRI KNEE RT WO CONon 023 MRI KNEE RT WO CON EXAMINATION: MRI KNE E RT WO CON HISTORY: Derangement of right knee ; acute medial and lateral knee pain after twisting injury COMPARISON: No relevant comparison available. TECHNIQUE: A complete multi-planar MRI was performed. FINDINGS: MEDIAL COMPARTMENT MEDIAL MENISCUS: Oblique tear extending into the inferior surface of the posterior horn/posterior junction. CARTILAGE: No visible defect. BONES: Small periarticular degenerative osteophytes. MCL AND MEDIAL CAPSULE: Grade I sprain of the medial collateral ligament. LATERAL COMPARTMENT LATERAL MENISCUS: No visible tear or significant degeneration. CARTILAGE: No visible defect. BONES: Small periarticular degenerative osteophytes. LCL/POSTEROLAT COMPLEX: Normal lateral collateral ligament, fascicles, lateral capsule and ligaments. ANTERIOR COMPARTMENT PATELLA: No marrow pathology, fracture, or significant arthropathy. CARTILAGE: No visible defect. TENDONS: Normal. EFFUSION: None. No synovitis or loose bodies. ACL: Normal appearing ligament. PCL: Normal appearing ligament. MENISCOFEMORAL: Normal meniscofemoral ligaments. OTHER: Tiny Presley's cyst. IMPRESSION: 1. Undersurface tear of the medial meniscus posterior horn/junction. 2. Mild strain of the medial collateral ligament. 3. Small periarticular degenerative osteophytes involving the articular margins of the medial and lateral compartments. 4. Tiny Presley's cyst. Electronically authenticated by: BERNY CANO Date: 2022-08-24 07:19 Normal [facility] CBC AUTO DIFFon 03-30-2022 BASO # 0.0 103/ul Normal 0.0-0.1 [facility] Comment on above: Performed By: #### C BC #### [facility] [address] [address] [address] Rc Foster Basophils/100 WBC (Bld) 0.4 % Normal 0.2-2.0 [facility] Comment on above: Performed By: #### C BC #### [facility] [address] [address] [address] Rc Foster EO # 0.3 103/ul Normal 0.0-0.7 [facility] Comment on above: Performed By: #### C BC #### [facility] [address] [place] [address] Dr. Rc Foster Eosinophils/100 WBC (Bld) 4.9 % Normal 0.9-7.0 [facility] Comment on above: Performed By: #### C BC #### [facility] [address] [place] [address] Dr. Rc Foster Erythrocyte distribution width (RBC) [Ratio] 12.2 % Normal 11.0-15.0 [facility] Comment on above: Performed By: #### C BC #### [facility] [address] [place] [address] Dr. Rc Foster Hematocrit (Bld) [Volume fraction] 39.8 % Normal 36.0-48.0 [facility] Comment on above: Performed By: #### C BC #### [facility] [address] [place] [address] Dr. Rc Foster Hemoglobin (Bld) [Mass/Vol] 13.1 g/dL Normal 12.0-16.0 [facility] Comment on above: Performed By: #### C BC #### [facility] [address] [place] [address] Dr. Rc Foster IG # 0.02 10e3/ul Normal 0.00-0.03 [facility] Comment on above: Performed By: #### C BC #### [facility] [address] [place] [address] Dr. Rc Foster IG % 0.4 % Normal 0.0-0.5 [facility] Comment on above: Performed By: #### C BC #### [facility] [address] [place] [address] Dr. Rc Foster LYMPH # 2.1 103/ul Normal 1.2-3.8 [facility] Comment on above: Performed By: #### C BC #### [facility] [address] [place] [address] Dr. Rc Foster Lymphocytes/100 WBC (Bld) 37.1 % Normal 20.5-60.0 [facility] Comment on above: Performed By: #### C BC #### [facility] [address] [place] [address] Dr. Rc Foster MANUAL DIFF REQ NO Normal [facility] Comment on above: Performed By: #### C BC #### [facility] [address] [place] [address] Dr. Rc Foster MCH (RBC) [Entitic mass] 28.7 pg Normal 26.7-34.0 [facility] Comment on above: Performed By: #### C BC #### [facility] [address] [place] [address] Dr. Rc Foster MCHC (RBC) [Mass/Vol] 32.9 g/dL Normal 29.9-35.2 [facility] Comment on above: Performed By: #### C BC #### [facility] [address] [place] [address] Dr. Rc Foster MCV (RBC) [Entitic vol] 87.1 fL Normal 81.0-99.0 [facility] Comment on above: Performed By: #### C BC #### [facility] [address] [place] [address] Dr. Rc Foster MONO # 0.4 103/ul Normal 0.3-0.8 [facility] Comment on above: Performed By: #### C BC #### [facility] [address] [place] [address] Dr. Rc Foster Monocytes/100 WBC (Bld) 6.7 % Normal 1.7-12.0 [facility] Comment on above: Performed By: #### C BC #### [facility] [address] [place] [address] Dr. Rc Foster NEUT # 2.9 103/ul Normal 1.4-6.5 [facility] Comment on above: Performed By: #### C BC #### [facility] [address] [place] [address] Dr. Rc Foster Neutrophils/100 WBC (Bld) 50.5 % Normal 43.0-75.0 [facility] Comment on above: Performed By: #### C BC #### [facility] [address] [address] [address] Rc Foster Platelet mean volume (Bld) [Entitic vol] 9.7 fL Normal 9.5-13.5 [facility] Comment on above: Performed By: #### C BC #### [facility] [address] [address] [address] Rc Foster PLT 189 103/ul Normal 150-450 [facility] Comment on above: Performed By: #### C BC #### [facility] [address] [address] [address] Rc Foster RBC 4.57 106/ul Normal 4.20-5.40 [facility] Comment on above: Performed By: #### C BC #### [facility] [address] [place] [address] Dr. Rc Foster WBC 5.7 103/ul Normal 4.0-11.0 [facility] Comment on above: Performed By: #### C BC #### [facility] [address] [address] [address] Rc Foster GLYCOHEMOGLOBIN A1Con 2021 ADA RECOMMENDATION SEE BELOW Normal [facility] Comment on above: Result Comment: ADA RECOMMENDED LIMIT 4.0 - 6.0 ADA THERAPEUTIC TARGET < 7.0 ACTION SUGGESTED > 7.0 Performed By: #### A 1C #### [facility] [address] [place] [address] Dr. Rc Foster Glucose [Mass/Vol] 143 mg/dL Normal [facility] Comment on above: Performed By: #### A 1C #### [facility] [address] [place] [address] Dr. Rc Foster HbA1c (Bld) [Mass fraction] 6.6 % Critically high 4.5-6.2 [facility] Comment on above: Performed By: #### A 1C #### [facility] [address] [place] [address] Dr. Rc Foster LIPID PROFILEon 03-30-2022 CHOL-HDL RATIO NORM SEE BELOW Normal [facility] Comment on above: Result Comment: 3.3 - 4.4 LOW RISK 4.4 - 7.1 AVERAGE RISK 7.1 - 11.0 MODERATE RISK >11.0 HIGH RISK Performed By: #### T SH, CMP, LIPID ####[facility] [address] [id number]. Rc Foster Cholesterol [Mass/Vol] 184 mg/dL Normal <=200 Th [facility] Comment on above: Performed By: #### T SH, CMP, LIPID ####[facility] [address] [id number]. Rc Foster Cholesterol in HDL [Mass/Vol] 42 mg/dL Normal 40-60 [facility] Comment on above: Performed By: #### T MARY JANE, CMP, LIPID ####[facility] [address] [address]Dr. Rc Foster Cholesterol in LDL [Mass/Vol] 87.0 mg/dL Normal [facility] Comment on above: Performed By: #### T SH, CMP, LIPID ####[facility] [address] [address]Dr. Rc Foster Cholesterol.total/Chol esterol in HDL [Mass ratio] 4.4 {ratio} Normal [facility] Comment on above: Performed By: #### T SH, CMP, LIPID ####[facility] [address] [id number]. Rc Foster HDL NORMAL > or = 60 mg/dl - LO W CARDIOVASCULAR RISK <40 mg/dl - HIGH CARDIOVASCULAR RISK Normal [facility] Comment on above: Performed By: #### T SH, CMP, LIPID ####[facility] [address] [id number]. Rc Foster LDL CALC NORMAL SEE BELOW Normal [facility] Comment on above: Result Comment: <100 mg/dl OPTIMAL 100 - 129 mg/dl NEAR OR ABOVE OPTIMAL 130 - 159 mg/dl BORDERLINE HIGH 160 - 189 mg/dl HIGH >190 mg/dl VERY HIGH Performed By: #### T SH, CMP, LIPID ####[facility] [address] [id number]. Rc Foster Triglyceride [Mass/Vol] 275 mg/dL Critically high <=150 [facility] Comment on above: Performed By: #### T SH, CMP, LIPID ####[facility] [address] [address]Dr. Rc Foster VLDL CALC 55.0 mg/dL Normal [facility] Comment on above: Performed By: #### T SH, CMP, LIPID ####[facility] [address] [address]Dr. Rc Foster PROF 14(COMP METB)on 022 Albumin [Mass/Vol] 4.0 g/dL Normal 3.4-5.0 [facility] Comment on above: Performed By: #### T SH, CMP, LIPID ####[facility] [address] [address]Dr. Rc Foster Albumin/Globulin [Mass ratio] 1.1 {ratio} Normal [facility] Comment on above: Performed By: #### T SH, CMP, LIPID ####[facility] [address] [address]Dr. cR Foster ALP [Catalytic activity/Vol] 71 U/L Normal 46-116 [facility] Comment on above: Performed By: #### T SH, CMP, LIPID ####[facility] [address] [address]Dr. Rc Foster ALT [Catalytic activity/Vol] 29 U/L Normal 14-59 [facility] Comment on above: Performed By: #### T SH, CMP, LIPID ####[facility] [address] [address]Dr. Rc Foster Anion gap [Moles/Vol] 13.2 mmol/L Normal [facility] Comment on above: Performed By: #### T SH, CMP, LIPID ####[facility] [address] [address]Dr. Rc Foster AST [Catalytic activity/Vol] 17 U/L Normal 15-37 [facility] Comment on above: Performed By: #### T SH, CMP, LIPID ####[facility] [address] [address]Dr. Rc Foster Bilirubin [Mass/Vol] 0.6 mg/dL Normal 0.2-1.0 [facility] Comment on above: Performed By: #### T SH, CMP, LIPID ####[facility] [address] [address]Dr. Rc Foster Calcium [Mass/Vol] 9.0 mg/dL Normal 8.5-10.1 [facility] Comment on above: Performed By: #### T SH, CMP, LIPID ####[facility] [address] [address]Dr. Rc Foster Chloride [Moles/Vol] 102 mmol/L Normal 98-107 [facility] Comment on above: Performed By: #### T SH, CMP, LIPID ####[facility] [address] [place], [place] [address]Dr. Rc Foster CO2 [Moles/Vol] 27.3 mmol/L Normal 21.0-32.0 [facility] Comment on above: Performed By: #### T SH, CMP, LIPID ####[facility] [address] [place] [address]Dr. Rc Foster Creatinine [Mass/Vol] 1.00 mg/dL Normal 0.55-1.02 [facility] Comment on above: Performed By: #### T SH, CMP, LIPID ####[facility] [address] [place] [address]Dr. Rc Foster EGFR-AF MAURITIAN >60 Normal >=60 [facility] Comment on above: Performed By: #### T SH, CMP, LIPID ####[facility] [address] [place] [address]Dr. Rc Foster EGFR-NON AF MAURITIAN 56 mL/min/1.73m2 Critically low >=60 [facility] Comment on above: Performed By: #### T SH, CMP, LIPID ####[facility] [address] [place] [address]Dr. Rc Foster Globulin (S) [Mass/Vol] 3.5 g/dL Normal [facility] Comment on above: Performed By: #### T SH, CMP, LIPID ####[facility] [address] [place] [address]Dr. Rc Foster Glucose [Mass/Vol] 159 mg/dL Critically high 74-[address] [facility] Comment on above: Performed By: #### T SH, CMP, LIPID ####[facility] [address] [place] [address]Dr. Rc Foster Potassium [Moles/Vol] 4.5 mmol/L Normal 3.5-5.1 [facility] Comment on above: Performed By: #### T SH, CMP, LIPID ####[facility] [address] [place] [address]Dr. Rc Foster Protein [Mass/Vol] 7.5 g/dL Normal 6.4-8.2 [facility] Comment on above: Performed By: #### T SH, CMP, LIPID ####[facility] [address] [place] [address]Dr. Rc Foster Sodium [Moles/Vol] 138 mmol/L Normal 136-145 [facility] Comment on above: Performed By: #### T SH, CMP, LIPID ####[facility] [address] [place] [address]Dr. Rc Foster Urea nitrogen [Mass/Vol] 23.0 mg/dL Critically high 7.0-18.0 [facility] Comment on above: Performed By: #### T SH, CMP, LIPID ####[facility] [address] [place] [address]Dr. Rc Foster Urea nitrogen/Creatinine [Mass ratio] 23.0 mg/mg Normal [facility] Comment on above: Performed By: #### T SH, CMP, LIPID ####[facility] [address] [place] [address]Dr. Rc Foster TSHon 03-30-2022 TSH 2.807 uIU/mL Normal 0.358-3.740 [facility] Comment on above: Performed By: #### T SH, CMP, LIPID ####[facility] [address] [place] [address]Dr. Yibreanna Foster US THYROIDon 03-30-2022 US THYROID EXAMINATION: US THYROID HISTORY: Non-toxic uninodular goiter COMPARISON: Ultrasound thyroid 03/06/2021 FINDINGS: RIGHT LOBE: Markedly heterogeneous and contains several nodules. The 3 largest are: 12 x 6 x 8 mm TR 4 nodule within inferior pole, 16 x 13 x 8 mm TR 3 nodule within mid body, and 4 x 4 by 3 mm TR 4 nodule within mid body. Lobe size: 3.9 x 1.2 x 1.2 cm LEFT LOBE: Prior left lobectomy. Residual thyroid tissue or suspicious findings. ISTHMUS: Heterogeneous and slightly thickened. Thickness: 5 mm IMPRESSION: 1. Prior left lobectomy; no suspicious findings within left thyroid fossa. 2. Heterogeneous nodular right thyroid lobe without overtly suspicious nodule. The marked heterogeneity results in limited definition of nodule margins which slightly limits evaluation in size comparison. Follow-up ultrasound evaluation in one year is recommended. TR 4: TR4 (moderately suspicious): If > 1.0 cm Follow-up ultrasound in 1, 2, 3, and 5 years. If > 1.5 cm fine needle aspiration (FNA). TR 3: TR3 (mildly suspicious): > 1.5 cm, follow-up ultrasound in 1, 3, and 5 years. > 2.5 cm, fine needle aspiration. Electronically authenticated by: BERNY CANO Date: 2022-03-30 11:03 Normal [facility] MAMM SCREEN 3D LEX CADon 03-19-2022 MG MAMM SCREEN 3D LEX CAD Patient: CARROLL HARDEN Exam Date: 03/19/2022 : 1960 Gender:F Ordering : DR ROBERT CRUZ D.O. Admission #: [id number] Family : Order #: [id number] CLICK HERE TO VIEW EXAM RADIOLOGY REPORT PROCEDURE: MAMMOGRAM SCREENING 3D BILATERAL CAD COMPARISON: MG MAMM SCREEN 3D LEX CAD, 03/02/2021. MG MAMM SCREEN LEX W CAD, 02/26/2020. INDICATIONS: Screening mammography Calculator Name NCI Breast Cancer Risk Assessment Tool 5 Year Breast Cancer Risk 1.50% Lifetime Breast Cancer Risk 6.80% Personal Breast Cancer No Personal Ovarian Cancer No Treatments None Family Cancers None LOCATION: [facility] BREAST COMPOSITION: Scattered areas fibroglandular density. FINDINGS: DIAGNOSTIC CATEGORY 1--NEGATIVE. RIGHT BREAST: No significant suspicious finding. No significant change has occurred. LEFT BREAST: No significant suspicious finding. No significant change has occurred. RECOMMENDATIONS: ROUTINE MAMMOGRAM AND CLINICAL EVALUATION IN 12 MONTHS. PLEASE NOTE: A NORMAL MAMMOGRAM DOES NOT EXCLUDE THE POSSIBILITY OF BREAST CANCER. A CLINICALLY SUSPICIOUS PALPABLE LUMP SHOULD BE BIOPSIED. Dictated by: Berny Cano M.D. on 03/23/2022 at 11:52 Approved by: Berny Cano M.D. on 03/23/2022 at 11:59 Normal [facility] CBC AUTO DIFFon 11-27-2021 BASO # 0.0 103/ul Normal 0.0-0.1 [facility] Comment on above: Performed By: #### C BC #### [facility] [address] [place] [address] Dr. Rc Foster Basophils/100 WBC (Bld) 0.7 % Normal 0.2-2.0 [facility] Comment on above: Performed By: #### C BC #### [facility] [address] [place] [address] Dr. Rc Foster EO # 0.6 103/ul Normal 0.0-0.7 [facility] Comment on above: Performed By: #### C BC #### [facility] [address] [place] [address] Dr. Rc Foster Eosinophils/100 WBC (Bld) 10.3 % Critically high 0.9-7.0 [facility] Comment on above: Performed By: #### C BC #### [facility] [address] [place] [address] Dr. Rc Foster Erythrocyte distribution width (RBC) [Ratio] 12.4 % Normal 11.0-15.0 [facility] Comment on above: Performed By: #### C BC #### [facility] [address] [place] [address] Dr. Rc Foster Hematocrit (Bld) [Volume fraction] 41.2 % Normal 36.0-48.0 [facility] Comment on above: Performed By: #### C BC #### [facility] [address] [place] [address] Dr. Rc Foster Hemoglobin (Bld) [Mass/Vol] 13.4 g/dL Normal 12.0-16.0 [facility] Comment on above: Performed By: #### C BC #### [facility] [address] [place] [address] Dr. Rc Foster IG # 0.01 10e3/ul Normal 0.00-0.03 [facility] Comment on above: Performed By: #### C BC #### [facility] [address] [place] [address] Dr. Rc Foster IG % 0.2 % Normal 0.0-0.5 [facility] Comment on above: Performed By: #### C BC #### [facility] [address] [place] [address] Dr. Rc Foster LYMPH # 2.3 103/ul Normal 1.2-3.8 [facility] Comment on above: Performed By: #### C BC #### [facility] [address] [place] [address] Dr. Rc Foster Lymphocytes/100 WBC (Bld) 40.6 % Normal 20.5-60.0 [facility] Comment on above: Performed By: #### C BC #### [facility] [address] [place] [address] Dr. Rc Foster MANUAL DIFF REQ NO Normal [facility] Comment on above: Performed By: #### C BC #### [facility] [address] [place] [address] Dr. Rc Foster MCH (RBC) [Entitic mass] 28.8 pg Normal 26.7-34.0 [facility] Comment on above: Performed By: #### C BC #### [facility] [address] [place] [address] Dr. Rc Foster MCHC (RBC) [Mass/Vol] 32.5 g/dL Normal 29.9-35.2 [facility] Comment on above: Performed By: #### C BC #### [facility] [address] [place] [address] Dr. Rc Foster MCV (RBC) [Entitic vol] 88.6 fL Normal 81.0-99.0 [facility] Comment on above: Performed By: #### C BC #### [facility] [address] [place] [address] Dr. Rc Foster MONO # 0.4 103/ul Normal 0.3-0.8 [facility] Comment on above: Performed By: #### C BC #### [facility] [address] [place] [address] Dr. Rc Foster Monocytes/100 WBC (Bld) 7.6 % Normal 1.7-12.0 [facility] Comment on above: Performed By: #### C BC #### [facility] [address] [place] [address] Dr. Rc Foster NEUT # 2.3 103/ul Normal 1.4-6.5 [facility] Comment on above: Performed By: #### C BC #### [facility] [address] [place] [address] Dr. Rc Foster Neutrophils/100 WBC (Bld) 40.6 % Critically low 43.0-75.0 [facility] Comment on above: Performed By: #### C BC #### [facility] [address] [place] [address] Dr. Rc Foster Platelet mean volume (Bld) [Entitic vol] 9.6 fL Normal 9.5-13.5 [facility] Comment on above: Performed By: #### C BC #### [facility] [address] [place] [address] Dr. Rc Foster PLT 194 103/ul Normal 150-450 [facility] Comment on above: Performed By: #### C BC #### [facility] [address] [place] [address] Dr. Rc Foster RBC 4.65 106/ul Normal 4.20-5.40 [facility] Comment on above: Performed By: #### C BC #### [facility] [address] [place] [address] Dr. Rc Foster WBC 5.5 103/ul Normal 4.0-11.0 [facility] Comment on above: Performed By: #### C BC #### [facility] [address] [place] [address] Dr. Rc Foster GLYCOHEMOGLOBIN A1Con 2021 ADA RECOMMENDATION SEE BELOW Normal [facility] Comment on above: Result Comment: ADA RECOMMENDED LIMIT 4.0 - 6.0 ADA THERAPEUTIC TARGET < 7.0 ACTION SUGGESTED > 7.0 Performed By: #### A 1C #### [facility] [address] [place] [address] Dr. Rc Foster Glucose [Mass/Vol] 131 mg/dL Normal [facility] Comment on above: Performed By: #### A 1C #### [facility] [address] [place] [address] Dr. Rc Foster HbA1c (Bld) [Mass fraction] 6.2 % Normal 4.5-6.2 [facility] Comment on above: Performed By: #### A 1C #### [facility] [address] [place] [address] Dr. Rc Foster PROF CHEM 8 (BAS METB)on Anion gap [Moles/Vol] 15.2 mmol/L Normal [facility] Comment on above: Performed By: #### T MARY JANE, BMP #### [facility] [address] [place] [address] Dr. Rc Foster Calcium [Mass/Vol] 8.5 mg/dL Normal 8.5-10.1 [facility] Comment on above: Performed By: #### T SH, BMP #### [facility] [address] [place] [address] Dr. Rc Foster Chloride [Moles/Vol] 100 mmol/L Normal 98-107 [facility] Comment on above: Performed By: #### T SH, BMP #### [facility] [address] [place] [address] Dr. Rc Foster CO2 [Moles/Vol] 26.6 mmol/L Normal 21.0-32.0 [facility] Comment on above: Performed By: #### T MARY JANE, BMP #### [facility] [address] [address] [address] Rc Foster Creatinine [Mass/Vol] 1.15 mg/dL Critically high 0.55-1.02 [facility] Comment on above: Performed By: #### T SH, BMP #### [facility] [address] [address] [address] Rc Foster EGFR-AF MAURITIAN 58 mL/min/1.73m2 Critically low >=60 [facility] Comment on above: Performed By: #### T SH, BMP #### [facility] [address] [address] [address] Rc Foster EGFR-NON AF MAURITIAN 48 mL/min/1.73m2 Critically low >=60 [facility] Comment on above: Performed By: #### T SH, BMP #### [facility] [address] [place] [address] Dr. Rc Foster Glucose [Mass/Vol] 211 mg/dL Critically high 74-[address] [facility] Comment on above: Performed By: #### T SH, BMP #### [facility] [address] [address] [address] Rc Foster Potassium [Moles/Vol] 4.8 mmol/L Normal 3.5-5.1 [facility] Comment on above: Performed By: #### T SH, BMP #### [facility] [address] [place] [address] Dr. Rc Foster Sodium [Moles/Vol] 137 mmol/L Normal 136-145 [facility] Comment on above: Performed By: #### T SH, BMP #### [facility] [address] [address] [address] Rc Foster Urea nitrogen [Mass/Vol] 33.0 mg/dL Critically high 7.0-18.0 [facility] Comment on above: Performed By: #### T SH, BMP #### [facility] [address] [address] [address] Rc Foster Urea nitrogen/Creatinine [Mass ratio] 28.7 mg/mg Normal [facility] Comment on above: Performed By: #### T SH, BMP #### [facility] [address] [address] [address] Rc Foster TSHon 11-27-2021 TSH 0.744 uIU/mL Normal 0.358-3.740 [facility] Comment on above: Performed By: #### T MARY JANE, BMP #### [facility] [address] [address] [address] Rc Foster SYMPTOMATIC COVID-19 ANTIGEN on 10-28-2021 EUA Statement SEE BELOW Normal [facility] Comment on above: Result Comment: This test has not been FDA cleared or approved, but has been authorized by the FDA under an Emergency Use Authorization (EUA) for use by authorized laboratories certified under CLIA that meet the requirements to perform moderate or high complexity testing. This test has been authorized only for the detection of proteins from SARS-CoV-2, not for any other viruses or pathogens. The emergency use of this test is authorized for the duration of the declaration that circumstances exist justifying the authorization of emergency use of in vitro diagnostic tests for detection and/or diagnosis of Covid-19 under section 564(b)(1) of the Act, 21 U.S.C. 360bbb-3(b)(1), unless the declaration is terminated or authorization is revoked sooner. Performed By: #### C ELPIDIOS ####[facility] [address] [address]Dr. Rc Foster SARS-CoV-2 (COVID-19) RNA YARED+probe Ql (Unsp spec) Negative Normal NEGATIVE [facility] Comment on above: Performed By: #### C RAMONAGS ####[facility] [address] [place] [id number]. Rc Foster GLYCOHEMOGLOBIN A1Con 2021 ADA RECOMMENDATION SEE BELOW Normal [facility] Comment on above: Result Comment: ADA RECOMMENDED LIMIT 4.0 - 6.0 ADA THERAPEUTIC TARGET < 7.0 ACTION SUGGESTED > 7.0 Performed By: #### A 1C #### [facility] [address] [address] [address] Rc Foster Glucose [Mass/Vol] 128 mg/dL Normal [facility] Comment on above: Performed By: #### A 1C #### [facility] [address] [address] [address] Rc Foster HbA1c (Bld) [Mass fraction] 6.1 % Normal 4.5-6.2 [facility] Comment on above: Performed By: #### A 1C #### [facility] [address] [address] [address] Rc Foster Discharge CCD Assessmenton 0 09-06-2020 Discharge CCD Assessment [facility] Patient: CARROLL HARDEN [address] [place] [address] MR#: [id number] DISCHARGE CCD ASSESSMENT : 58 Service Date: 09/06/20 1018 Discharge CCD Assessment Assessment Patient discharged home to continue exercises, pain medication, and wound care Electronically Signed eSign Date and Time Melyssa Flores 09/06/20 1019 Tera Hernandez MD Normal [facility] GLUCOSE METERon 09-06-2020 Glucose [Mass/Vol] 126 mg/dL High 70-99 [facility] Comment on above: Order Comment: CONSE RVATION Result Comment: Fast ing GLUCOSE reference range has been updated per (ADA) [place] Diabetes Association's recommendation. 07/18/2018 Performed By: #### L 500.22648 ####Test performed at: [place] [address] Glucose [Mass/Vol] 205 mg/dL High 70-99 [facility] Comment on above: Order Comment: CONSE RVATION Result Comment: Fast ing GLUCOSE reference range has been updated per (ADA) [place] Diabetes Association's recommendation. 07/18/2018 Insulin per sl scale Performed By: #### L 500.60278 #### Test performed at: [place] [address] Internal Med Progress Noteon 09-06-2020 Internal Med Progress Note [facility] Patient: CARROLL HARDEN [address] [place] [address] [id number] PROGRESS NOTE - Internal Medicine : 58 Service Date: 09/06/20 0746 Subjective Summary of Stay Ms. Harden is a 60 yo F with a PMHx of DM2 well controlled, HTN, migraines, HLD, Hypothyroidism, ADAN, restless legs, Hysterectomy and ovaries removed, partial thyroidetomy , C5-C6 surgeries x 2 (most recent 2018), bilateral shoulder replacement, cardiac cath 2015 which was okay, who is POD-2 s/p Left L4-L5 laminectomy, foraminectomy, decompression. Surgery was uncomplicated, EBL < 30 cc, WILL drain in place, no butt. IM consulted for postoperative medical management. Pt reports mild lumbar surgery pain, nonradiating, no other complaints. Ambulating well. No other complaints. Passing flatus but no BM yet. Will continue to follow. Events since last encounter None Subjective Pt is ambulating well. lumbar pain is minimal. passing flatus, no BM yet. no other complaints General Denies Chills, Denies Night sweats HEENT Denies Head Aches, Denies Visual Changes Pulmonary Denies Dyspnea, Denies Cough, Denies Pleuritic Chest Pain Cardiovascular Denies Chest Pain, Denies Palpitations, Denies Orthnopnea Gastrointestinal Denies Nausea, Denies Vomiting, Denies Abdominal Pain, Denies Diarrhea, Denies Constipation Genitourinary Denies Dysuria, Denies Frequency Musculoskeletal Back Pain (s/p surgery), Denies Neck Pain, Denies Shoulder Pain Neurological Denies Weakness, Denies Numbness Objective Exam Vitals and I/O Vital Signs Verdana 4d Result Date Time B/P 117/67 09/06 0820 Pulse 87 09/06 0820 Pulse Ox 96 09/06 0620 O2 Delivery ROOM AIR 09/06 06 Temp 36.0 09/06 06 Resp 18 09/06 06 O2 Flow Rate 3 09/04 1804 Intake AND Output Verdana 4d 09/06 2300 09/05 2300 Intake Total 400 3120 Output Total 900 3020 Balance -500 100 Intake, IV 1100 Oral 400 2020 utput, 0 70 rainage Output, Urine 900 2950 General Appearance Alert, Oriented X3, Cooperative, No Acute Distress HEENT Atraumatic, EOMI Lungs Clear to Auscultation, Normal Air Movement Neck Supple, No JVD Cardiovascular Regular Rate, Normal S1, Normal S2, No Murmurs Abdomen Normal Bowel Sounds, Soft, No Tenderness Extremities No Edema, Normal Pulses Neurological Normal Speech, Normal Tone, Sensation Intact Psych/Mental Status Mental Status NL, Mood NL Other Physical Findings WILL drain with minimal bloody drainage Results Results All Laboratory Tests 09/06 09/05 09/05 09/05 0818 2216 1720 1058 Chemistry POC Glucose (70 - 99 mg/dL) 126 205 177 310 Assessment/Plan-Inter nal Med Problem List 1. S/P cervical disc replacement 2. Status post lumbar spine surgery for decompression of spinal cord 3. Migraine 4. STEPHANIE (obstructive sleep apnea) 5. RLS (restless legs syndrome) 6. Depression 7. Hyperlipidemia 8. Hypothyroidism 9. DM (diabetes mellitus) Med Reasons/Tx for Con't stay s/p Lumbar surger Assessment # POD-2 s/p L4-L5 Laminectomy, Foraminectomy, Decompression (DoS: 09/04/2020) - IM consulted for postoperative medical management - Pt seen and examined in PACU - Surgery was uncomplicated, EBL < 30 cc, WILL drain in place, no butt. - Pt reports mild lumbar surgical site pain, nonradiating, no other complaints - ambulating well, passing flatus, no BM - VSS, Exam unremarkable - WILL drain in place with small amount of bloody drainage. - Pre-op labs and EKG reviewed, wnl - Postoperative labs significant for some hyperglycemia 2/2 decadron Plan: * Pain management per surgery * Nausea management per surgery * Bowel care per surgery * PT/OT * Encourage incentive spirometry * Encourage early ambulation as able * Will continue to follow # HTN # HLD Plan: * Atenolol 50 mg PO daily * Clonidine 0.1 mg PO BID * Pravastatin 20 mg PO daily # DM2 Plan: * Metformin 500 mg PO BIDWM * Glimepiride 4 mg PO daily * LDSSI # MDD Plan: * Celexa 40 mg PO daily # Restless legs Plan: * Klonipin 1.5 mg PO QHS # Migraines Plan: * Rizatriptan 10 mg PO BIDPRN for migraines # Hypothyroidism Plan: * Levothyroxine 125 mcg PO daily # DVT PPx Plan: * PCDs * No other DVT Ppx per surgery at this time. Be sure to note changes Be sure to note changes DVT Prophylaxis PCDs, ambulation *Attending Attestation Attending Attestation Attending Attestation All pertinent elements of history and physical exam were confirmed by me. Agree with above documentation. Electronically Signed eSign Date and Time Ana Flanagan RES, Katarzy na MD 09/06/20 1134 Normal [facility] Orthopedic Progress Noteon 0 09-06-2020 Orthopedic Progress Note [facility] Patient: CARROLL HARDEN [address] [place] [address] MR#: [id number] PROGRESS NOTE - Orthopedic : 58 Service Date: 09/06/20 1019 Objective Exam General Appearance Alert, Oriented X3, Cooperative, No Acute Distress HEENT PERRLA Lungs Clear to Auscultation Neck Supple Cardiovascular Regular Rate Abdomen Normal Bowel Sounds, Soft, No Tenderness Extremities No Edema, Normal Pulses Skin No Rashes, No Breakdown, No Significant Lesion Neurological Normal Gait, Normal Speech, Strength at 5/5 X4 Ext, Normal Tone, Sensation Intact Psych/Mental Status Mental Status NL Other Physical Findings Laboratory Tests Last 24 Hrs 09/06 09/05 09/05 09/05 0818 2216 1720 1058 Chemistry POC Glucose (70 - 99 mg/dL) 126 H 205 H 177 H 310 H Vital Signs Verdana 4d Result Date Time B/P 117/67 09/06 0820 Pulse 87 09/06 0820 Pulse Ox 96 09/06 0620 O2 Delivery ROOM AIR 09/06 0620 Temp 36.0 09/06 0620 Resp 18 09/06 0620 O2 Flow Rate 3 09/04 1804 Intake AND Output Verdana 4d 09/06 2300 09/05 2300 Intake Total 400 3120 Total 900 3020 alance -500 100 Intake, IV 1100 Intake, Oral 400 2020 Output, 0 70 rainage Output, Urine 900 2950 MINIMAL POST OP PAIN. DENIES NUMBNESS AND TINGLING. STRENGTH WNL. DRESSING TO REMOVED INCISION WELL APPROXIMATED WITH DERMABOND GLUE. NO DRAINAGE DR WAGNER REMOVED WITHOUT DIFFICLTY. DISCHARGE INSTRUCTIONS DISCUSSED PATIENT STATED UNDERSTANDING. SHALL AWARE OF ABOVE AND PLAN OF CARE. Assessment and Plan - ICD10 Problem List 1. S/P cervical disc replacement 2. Status post lumbar spine surgery for decompression of spinal cord 3. Migraine 4. STEPHANIE (obstructive sleep apnea) 5. RLS (restless legs syndrome) 6. Depression 7. Hyperlipidemia 8. Hypothyroidism 9. DM (diabetes mellitus) Assessment D/C HOME TODAY FOLLOW UP WITH DR HERNANDEZ IN 2 WEEKS Electronically Signed eSign Date and Time Selene Newton RN 09/06/20 1022 Tera Hernandez MD Normal [facility] Anesthesia Noteon 09-05-2020 Anesthesia Note [facility] Patient: CARROLL HARDEN [address] [place] [address] MR#: [id number] ANESTHESIA NOTE : Service Date: 09/05/20 0812 Post-anesthesia Note Note Patient assessed post operatively for the following: [x ] Respiratory function, including respiratory rate, airway patency and oxygen saturation [x ] Cardiovascular function, including pulse rate and blood pressure [x ] Mental status [x ] Temperature [x ] Pain [x ] Nausea and vomiting [x ] Postoperative hydration [x ] No Visual Changes Due to the following condition(s) additional monitoring may be necessary: [none ] [x ] No apparent anesthesia complications noted. [x ] Status as per pre-op Electronically Signed eSign Date and Time Krystian Akers APRN-HOSPITAL CLEANING SPECIALIST 09/05/20 0813 Chu Glez MD Normal [facility] BASIC MET PANELon 09-05-2020 Anion gap [Moles/Vol] 12 mmol/L Normal 6-18 [facility] Comment on above: Performed By: #### L 500.33622, L500.92366 #### Test performed at: [place] [address] Calcium [Mass/Vol] 8.7 mg/dL Normal 8.5-10.1 [facility] Comment on above: Performed By: #### L 500.82953, L500.67519 #### Test performed at: [address] [address] Chloride [Moles/Vol] 101 mmol/L Normal 98-107 [facility] Comment on above: Performed By: #### L 500.46581, L500.36302 #### Test performed at: [address] [address] CO2 [Moles/Vol] 25 mmol/L Normal 21-32 [facility] Comment on above: Performed By: #### L 500.80293, L500.74358 #### Test performed at: [address] [address] Creatinine [Mass/Vol] 1.020 mg/dL Normal 0.550-1.020 [facility] Comment on above: Performed By: #### L 500.61422, L500.44625 #### Test performed at: [address] [address] Glucose [Mass/Vol] 264 mg/dL High 70-99 [facility] Comment on above: Result Comment: Fast ing GLUCOSE reference range has been updated per (ADA) [place] Diabetes Association's recommendation. 07/18/2018 Performed By: #### L 500.29930, L500.43894 #### Test performed at: [address] [address] OSM 289 mosm/kg Normal 270-300 [facility] Comment on above: Performed By: #### L 500.57342, L500.81276 #### Test performed at: [address] [address] Potassium [Moles/Vol] 4.5 mmol/L Normal 3.5-5.1 [facility] Comment on above: Performed By: #### L 500.76788, L500.73145 #### Test performed at: [address] [address] Sodium [Moles/Vol] 134 mmol/L Low 136-145 [facility] Comment on above: Performed By: #### L 500.60208, L500.51452 #### Test performed at: [address] [address] Urea nitrogen [Mass/Vol] 17 mg/dL Normal 7-18 [facility] Comment on above: Performed By: #### L 500.83579, L500.13354 #### Test performed at: [address] [address] GFR ESTIMATEon 09-05-2020 IF AMER > 60 Normal > 60 [facility] Comment on above: Result Comment: eGFR (Estimated GFR) Units of measure:mL/min/1.73 meters sq. *CALCULATION REVISED 02/11/2015;IDMS-traceable MDRD equation eGFR is derived from the reexpressed MDRD Study equation using the following parameters: serum creatinine, age, gender and race. An eGFR<60 mL/min/1.73m2 for >3 months is consistent with chronic kidney disease. Refer to KDOQI guidelines for clinical interpretation. Performed By: #### L 500.75079, L500.41992 #### Test performed at: [place] [id number] IF non-AFR AMER 55 Low > 60 [facility] Comment on above: Performed By: #### L 500.97624, L500.90795 #### Test performed at: [address] [address] GLUCOSE METERon 09-05-2020 Glucose [Mass/Vol] 177 mg/dL High 70-99 [facility] Comment on above: Order Comment: CONSE RVATION Result Comment: Fast ing GLUCOSE reference range has been updated per (ADA) [place] Diabetes Association's recommendation. 07/18/2018 Performed By: #### L 500.41822 #### Test performed at: [address] [address] Glucose [Mass/Vol] 310 mg/dL High 70-99 [facility] Comment on above: Result Comment: Fast ing GLUCOSE reference range has been updated per (ADA) [place] Diabetes Association's recommendation. 07/18/2018 Insulin per sl scale Performed By: #### L 500.80731 ####Test performed at: [address] [address] Glucose [Mass/Vol] 281 mg/dL High 70-99 [facility] Comment on above: Result Comment: Fast ing GLUCOSE reference range has been updated per (ADA) [place] Diabetes Association's recommendation. 07/18/2018 Insulin per sl scale Performed By: #### L 500.56330 #### Test performed at: [address] [address] Glucose [Mass/Vol] 105 mg/dL High 70-99 [facility] Comment on above: Result Comment: Fast ing GLUCOSE reference range has been updated per (ADA) [place] Diabetes Association's recommendation. 07/18/2018 Performed By: #### L 500.42278 #### Test performed at: [place] [id number] HGB AND HCTon 09-05-2020 Hematocrit (Bld) [Volume fraction] 37.5 % Normal 36.0-48.0 [facility] Comment on above: Performed By: #### L 200.60700 #### Test performed at: [place] [address] Hemoglobin (Bld) [Mass/Vol] 12.5 g/dL Normal 12.0-15.0 [facility] Comment on above: Performed By: #### L 200.74312 #### Test performed at: [place] [id number] Internal Med Progress Noteon 09-05-2020 Internal Med Progress Note [facility] Patient: CARROLL HARDEN [address] [place] [address] MR#: [id number] PROGRESS NOTE - Internal Medicine : 58 Service Date: 09/05/20 0831 Subjective Summary of Stay Ms. Harden is a 60 yo F with a PMHx of DM2 well controlled, HTN, migraines, HLD, Hypothyroidism, ADAN, restless legs, Hysterectomy and ovaries removed, partial thyroidetomy , C5-C6 surgeries x 2 (most recent 2018), bilateral shoulder replacement, cardiac cath 2015 which was okay, who is POD-1 s/p Left L4-L5 laminectomy, foraminectomy, decompression. Surgery was uncomplicated, EBL < 30 cc, WILL drain in place, no butt. IM consulted for postoperative medical management. Pt reports mild lumbar surgery pain, nonradiating, no other complaints. Ambulating well. No other complaints. No flatus or BM yet. Will continue to follow. Events since last encounter None Subjective Pt reports 3/10 lumbar pain, nonradiating. No flatus, no BM yet. No other complaints General Denies Chills, Denies Night sweats HEENT Denies Head Aches, Denies Visual Changes Pulmonary Denies Dyspnea, Denies Cough, Denies Pleuritic Chest Pain Cardiovascular Denies Chest Pain, Denies Palpitations Gastrointestinal Denies Nausea, Denies Vomiting, Denies Abdominal Pain, Denies Diarrhea, Denies Constipation Genitourinary Denies Dysuria, Denies Frequency Musculoskeletal Back Pain, Denies Neck Pain, Denies Shoulder Pain Neurological Denies Weakness, Denies Numbness Objective Exam Vitals and I/O Vital Signs Verdana 4d Result Date Time B/P 122/78 09/05 0855 Pulse 84 09/05 0855 Pulse Ox 96 09/05 0635 O2 Delivery ROOM AIR 09/05 0635 Temp 36.0 09/05 0635 Resp 18 09/05 0635 O2 Flow Rate 3 09/04 1804 Intake AND Output Verdana 4d 09/05 2300 09/04 2300 Intake Total 800 1820 Output Total 600 1830 Balance 200 -10 Intake, IV 700 500 Oral 100 1320 utput, 30 rainage Output, Urine 600 1800 Patient 78 kg eight Weight PREADMISSION TESTING WGT easurement ethod General Appearance Alert, Oriented X3, Cooperative, No Acute Distress HEENT Atraumatic, EOMI Lungs Clear to Auscultation, Normal Air Movement Neck Supple, No JVD Cardiovascular Regular Rate, Normal S1, Normal S2, No Murmurs Abdomen Normal Bowel Sounds, Soft, No Tenderness Extremities No Edema, Normal Pulses Neurological Normal Speech, Normal Tone, Sensation Intact Psych/Mental Status Mental Status NL, Mood NL Results Results All Laboratory Tests 09/05 09/05 09/05 09/04 09/04 1058 0642 0550 2239 1303 Chemistry Sodium (136 - 145 mmol/L) 134 Potassium (3.5 - 5.1 mmol/L) 4.5 Chloride (98 - 107 mmol/L) 101 - 32 mmol/L) 25 BUN (7 - 18 mg/dL) 17 Creatinine (0.550 - 1.020 mg/dL) 1.020 Est GFR ( Amer) (> 60) > 60 Est GFR (Non-Af Amer) (> 60) 55 Glucose (70 - 99 mg/dL) 264 Glucose (70 - 99 mg/dL) 310 281 105 94 ematology Hgb (12.0 - 15.0 g/dL) 12.5 Hct (36.0 - 48.0 %) 37.5 Assessment/Plan-Inter nal Med Problem List 1. S/P cervical disc replacement 2. Status post lumbar spine surgery for decompression of spinal cord 3. Migraine 4. STEPHANIE (obstructive sleep apnea) 5. RLS (restless legs syndrome) 6. Depression 7. Hyperlipidemia 8. Hypothyroidism 9. DM (diabetes mellitus) Med Reasons/Tx for Con't stay s/p lumbar surgery Assessment # POD-1 s/p L4-L5 Laminectomy, Foraminectomy, Decompression (DoS: 09/04/2020) - IM consulted for postoperative medical management - Pt seen and examined in PACU - Surgery was uncomplicated, EBL < 30 cc, WILL drain in place, no butt. - Pt reports mild lumbar surgical site pain, nonradiating, no other complaints - ambulating well, no flatus, no BM - VSS, Exam unremarkable - WILL drain in place with small amount of bloody drainage. - Pre-op labs and EKG reviewed, wnl - Postoperative labs significant for some hyperglycemia 2/2 decadron Plan: * Pain management per surgery * Nausea management per surgery * Bowel care per surgery * PT/OT * Encourage incentive spirometry * Encourage early ambulation as able * Will continue to follow # HTN # HLD Plan: * Atenolol 50 mg PO daily * Clonidine 0.1 mg PO BID * Pravastatin 20 mg PO daily # DM2 Plan: * Metformin 500 mg PO BIDWM * Glimepiride 4 mg PO daily # MDD Plan: * Celexa 40 mg PO daily # Restless legs Plan: * Klonipin 1.5 mg PO QHS # Migraines Plan: * Rizatriptan 10 mg PO BIDPRN for migraines # Hypothyroidism Plan: * Levothyroxine 125 mcg PO daily # DVT PPx Plan: * PCDs * No other DVT Ppx per surgery at this time. Be sure to note changes Be sure to note changes DVT Prophylaxis PCDs, ambulation *Attending Attestation Attending Attestation Attending Attestation All pertinent elements of history and physical exam were confirmed by me. Agree with above documentation. The [resident's assessment and plan reflect my input. Disc (more content not included)... Normal [facility] OT Therapy Recommendationson 09-05-2020 OT Therapy Recommendations [facility] Patient: CARROLL HARDEN [address] [place], [place] [id number] MR#: [id number] OT THERAPY RECOMMENDATIONS : 58 Service Date: 09/05/201510 Therapy Recommendations Therapy Recommendations Recommendations OT evaluation completed. OT recommends HOME with FAmily assist. No further acute OT needs are indicated at this time. Electronically Signed eSign Date and Time Trupti Rojas OT 09/05/20 151 Normal [facility] Orthopedic Progress Noteon 0 09-05-2020 Orthopedic Progress Note [facility] Patient: CARROLL HARDEN [address] [place], [place] [id number] MR#: [id number] PROGRESS NOTE - Orthopedic : 58 Service Date: 09/05/20 1422 Subjective Summary of Stay POD #1 LT L4-5 LFD Events since last encounter INCREASED DRAIANGE AND INCREASED GLUCOSE Subjective THE PAIN IN MY LT LEG IS GONE ITS JUST MY SUGARS ARE OFF General Denies Chills, Denies Night sweats, Denies Fatigue HEENT Denies Head Aches, Denies Visual Changes, Denies Sinus Congestion, Denies Post Nasal Drip, Denies Sore Throat Pulmonary Denies Dyspnea, Denies Cough Cardiovascular Denies Chest Pain, Denies Palpitations, Denies Lt Headedness Gastrointestinal Denies Nausea, Denies Vomiting, Denies Abdominal Pain, Denies Diarrhea, Denies Constipation Genitourinary Denies Dysuria, Denies Frequency, Denies Incontinence, Denies Retention Musculoskeletal Back Pain (incisional), Denies Neck Pain, Denies Shoulder Pain Neurological Denies Weakness, Denies Numbness, Denies Seizures Objective Exam Vitals and I/O Vital Signs Verdana 4d Result Date Time Pulse Ox 97 09/05 1055 B/P 120/58 09/05 1055 O2 Delivery ROOM AIR 09/05 1055 Temp 36.6 09/05 1055 Pulse 88 09/05 1055 Resp 20 09/05 1055 O2 Flow Rate 3 09/04 1804 Intake AND Output Verdana 4d 09/05 2300 09/04 2300 Intake Total 800 1820 Output Total 600 1830 Balance 200 -10 Intake, IV 700 500 Oral 100 1320 utput, 30 rainage Output, Urine 600 1800 Patient 78 kg eight Weight PREADMISSION TESTING WGT easurement ethod General Appearance Alert, Oriented X3, Cooperative, No Acute Distress HEENT PERRLA, Mucous Membr. moist/pink Lungs Normal Air Movement Neck Supple Cardiovascular Regular Rate Abdomen Soft, No Tenderness, No Masses Extremities No Clubbing, Normal Pulses, No Tenderness/Swelling Skin No Rashes, No Breakdown, No Significant Lesion Neurological Normal Gait, Normal Speech, Strength at 5/5 X4 Ext, Normal Tone Psych/Mental Status Mental Status NL, Mood NL Other Physical Findings Pt sitting on side of bed with lower back dressing and hemovac incorporated. Drain will remain d/t increased draiange.No shadowing noted Pt state pain lt leg is gone post op. Adequate pain control with oral megan medicatio Pt up with wheeled wlkaer with slow steady gait and back brae in place IS to 1500 SCD while awke Elevated blood sugars noted. Appeciate medicine input. Will start sliding scale. WIll remain until sugars better controlled Dr Shall aware of plan Results Results All Laboratory Tests 09/05 09/05 09/05 09/04 1058 0642 0550 2239 Chemistry Sodium (136 - 145 mmol/L) 134 Potassium (3.5 - 5.1 mmol/L) 4.5 Chloride (98 - 107 mmol/L) 101 Carbon Dioxide (21 - 32 mmol/L) 25 - 18 mg/dL) 17 Creatinine (0.550 - 1.020 mg/dL) 1.020 Est GFR ( Amer) (> 60) > 60 Est GFR (Non-Af Amer) (> 60) 55 Glucose (70 - 99 mg/dL) 264 mg/dL) 310 281 105 ematology Hgb (12.0 - 15.0 g/dL) 12.5 Hct (36.0 - 48.0 %) 37.5 Assessment and Plan - ICD10 Problem List 1. S/P cervical disc replacement 2. Status post lumbar spine surgery for decompression of spinal cord 3. Migraine 4. STEPHANIE (obstructive sleep apnea) 5. RLS (restless legs syndrome) 6. Depression 7. Hyperlipidemia 8. Hypothyroidism 9. DM (diabetes mellitus) Med Reasons/Tx for Con't stay cont pt/ot increased draiange increased blood sugars Assessment plan pt/ot pain meicaiton is dvt prophilaxis mobilize monitor draiange monitor blood sugar-start ss Electronically Signed eSign Date and Time RUBEN KHAN 09/05/20 1429 Tera Hernandez MD Normal [facility] PT Therapy Recommendationson 09-05-2020 PT Therapy Recommendations [facility] Patient: CARROLL HARDEN [address] [place] [id number] MR#: [id number] PT THERAPY RECOMMENDATIONS : 58 Service Date: 09/05/20 09 Therapy Recommendations Therapy Recommendations Recommendations PT eval complete. No further acute PT needs. Recommend d/c home /c family assist. Electronically Signed eSign Date and Time Tiffanie Bashir PT 09/05/20913 Normal [facility] z OT Inpatient Discharge Not juan 09-05-2020 z OT Inpatient Discharge Note [facility] Patient: CARROLL HARDEN [address] [place] [id number] MR#: [id number] OT INPATIENT DISCHARGE NOTE : 58 Service Date: 09/05/20 1533 z OT HPI Discharge Note Total number of visits 1 Date of Discharge 09/05/20 Start of Care Date 09/05/20 z OT Inpatient AP Discharge Treatment Patient Education, Self Care/ADL Training Comments OT goals met Treatment Goals Achieved: Yes Plan Follow Up w/ Physician, Discharge from OT DC Recommendations Home-No Home Health Care, Family Assistance OT Status: DISCHARGED Electronically Signed eSign Date and Time Trupti Rojas OT 09/05/20 1534 Normal [facility] z OT Inpatient Evaluationon 09-05-2020 z OT Inpatient Evaluation [facility] Patient: CARROLL HARDEN [address] [place] [address] MR#: [id number] OT INPATIENT EVALUATION : 58 Inpatient OT HPI Date of Service 09/05/20 Time In: 1401 Time Out: 1412 Total Treatment Time (Mins) 11 Visit Reason LATERAL RECESS STENOSIS W/ RADICULOPATHY Surgery Type/Date s/p L L4-5 LAmi, foraminotomy, decompression on 09.04.20/ Lumbar spine precautions Referral Date 09/04/20 Tx Diagnosis: LOW BACK PAIN Insurance Name [employer] [facility] [place] [facility] [place] Pt is a left hand dominant 60 YR OLD F with a hx of DM, STEPHANIE, and s/p cercival disc replacement was admitted for lateral recess stenosis with radiculopathy and underwent above listed surgical procedure. OT has received a referral for eval and treat as indicated. pt supine in bed and agreeable to OT evaluation this date. Past Medical/Social History Problem List Medical Problems Cervical disc disease Depression DM (diabetes mellitus) Hx of supraventricular tachycardia Hyperlipidemia Hypothyroidism Migraine STEPHANIE (obstructive sleep apnea) Pre-operative exam RLS (restless legs syndrome) Surgical Problems S/P cervical disc replacement Status post lumbar spine surgery for decompression of spinal cord Living Arrangements Home Lives With Spouse Steps to Enter House 2 Railings Right Handrail Adaptive Equipment Single Point Cane, Wheeled Walker ADL Equipment High Toilet, Long Shoe Horn, Shower Chair Bedroom Location 1st Floor Bathroom Location 1st Floor Shower Walk in Comments Pt lives with her in a SS home with a basement (laundry in basement /spouse does laundry), with 2 ZACH with R HR, 1st floor set up. has walk in shower with shower chair. 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 Objective Precautions Lumbar Spine Pain Scale 7 Pain Character Ache Pain Location Back Equipment Drain, SCD Orientation Person, Place, Time, Situation Behavior Within Functional Limits Sensation Within Functional Limits Tone Within Functional Limits Hand Dominance Left Coordination Fine Motor Coordination Within Functional Limits Gross Motor Coordination Within Functional Limits Coordination Within Functional Limits Opposition Intact Proprioception Within Normal Limits ROM RUE ROM Within Normal Limits LUE ROM Within Normal Limits Strength RUE Strength Within Normal Limits LUE Strength Within Normal Limits Comments Bilateral upper extremities WFLs for participation in management of ADLs and functional mobility tasks. Outcome Measures Ayana Score Ayana Score Response Value Feeding Independent 10 Bathing Independent 5 Grooming Independent 5 Dressing Independent 10 Bowels Continent 10 Bladder Continent 10 Toilet Independent 10 Transfer(Bed to Chair and Back) Independent 15 obility (On Level Surfaces) Independent 15 tairs Independent 10 otal 100 Comments [0] % disability based on the Ayana Index ADL Function ADL Function Upper Body Dressing Independent Lower Body Dressing Modified Independent Upper Body Bathing Anticipated, Independent Lower Body Bathing Anticipated, Modified Independent Toileting Anticipated, Independent Grooming Anticipated, Setup Comments Patient is independent/modified independent with all ADLs and functional mobility tasks. Pt used adaptation of leg lift up to compensate for LE/LB dressing while adhering to precautions. pt did not need ot use AE Transfers Transfers Supine to Sit Modified Independent Sit to Stand Independent Stand to Sit Independent Sit to Supine Modified Independent Bed to Chair Independent Chair to Bed Independent Toilet Modified Independent Comments Pt completed household func mobility with no AD at ind level in her room and bathroom today. pt demonstrated good understanding of log rolling Static Sitting Balance Within Normal Limits Dynamic Sitting Balance Within Functional Limits Static Standing Balance Within Normal Limits Dynamic Standing Balance Within Functional Limits Treatment Additional Minutes of Tx Performed 0 Remained in Bed All Needs Within Reach Yes Assessment/Plan for Inpt OT DC Recommendations Home-No Home Health Care, Family Assistance Topic #1 Rehabilitation Techniques Post oP Booklet with going home instructions AE education for ADLS is needed. ROLE OF OT Teaching Method: TEACHBACK Teaching Method: TEACHBACK Teaching Method: TEACHBACK Outcome: VERBALIZED/ADEQ TEACHBACK Comments Post Op precautions/issued packet with home going instructions and information regarding adaptive equipment and bathroom DME. Problems ADL Skills Rehab Potential Excellent Nader (more content not included)... Normal [facility] z PT Inpatient Discharge Not juan 09-05-2020 z PT Inpatient Discharge Note [facility] Patient: CARROLL HARDEN [address] [place], [place] [id number] MR#: [id number] PT INPATIENT DISCHARGE NOTE : 58 Service Date: 09/05/20 1139 z PT Inpt. HPI Discharge Note Discharge Time 1139 Total number of visits 1 Date of Discharge 09/05/20 Start of Care Date 09/05/20 Final Date of Care 09/05/20 z PT Inpatient AP Discharge Treatment: Therapeutic Activity, Patient Education, Therapeutic Exercise, Gait Training, HEP Treatment Goals Achieved: Yes Plan Discharge from PT Discharge Recommendations Home-No Home Health Care PT Status: DISCHARGED Electronically Signed eSign Date and Time Tiffanie Bashir PT 09/05/20 1139 Normal [facility] z PT Inpatient Evaluationon 09-05-2020 z PT Inpatient Evaluation [facility] Patient: CARROLL HARDEN [address] [place], [place] [phone] MR#: [id number] PT INPATIENT EVALUATION : 58 Service Date: 09/05/20 0928 Inpatient PT HPI Date of Service 09/05/20 Time In: 0845 Time Out: 0907 Total Treatment Time (Mins) 22 Room Number [id number] Visit Reason LATERAL RECESS STENOSIS W/ RADICULOPATHY Surgery Type: L L4-5 lami, foraminotomy, decompression Surgery Date: 09/04/20 Referral Date 09/04/20 Tx Diagnosis: LOW BACK PAIN Insurance Name [facility] POS [facility] Hospital Course 60 y.o female at [facility] for above sx d/t lateral recess stenosis /c radiculopathy. PT orders received eval/tx, encourage ambulation, logroll, ad jeremiah /c assist, brace OOR. Pt supine, agreeable to session. Past Medical/Social History Problem List Medical Problems Cervical disc disease Depression DM (diabetes mellitus) Hx of supraventricular tachycardia Hyperlipidemia Hypothyroidism Migraine STEPHANIE (obstructive sleep apnea) Pre-operative exam RLS (restless legs syndrome) Surgical Problems S/P cervical disc replacement Status post lumbar spine surgery for decompression of spinal cord Living Arrangements Home Lives With Spouse Mobility Aids Single Point Cane, Wheeled Walker Steps to Enter House 2 Stairs Inside House 0 Railings Right Handrail Functional Level Pt denies use of AD prior. Denies falls, +drives. Indep /c ADL/IADLs, but increased time/ effort 2nd back pain. 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 Spouse available for assist upon d/c. Objective Pain Pain Scale 8 Pain Character Ache Pain Location Back Comments Nursing in to administer pain meds Precautions Back Brace, Spinal Equipment Drain, Peripheral IV Dynamic Sitting Balance Good Dynamic Standing Balance G- Comments Intermittent single UE support for dynamic standing, no overt LOB Orientation Person, Place, Time, Situation Behavior Cooperative Sensation Within Functional Limits Endurance Good Posture Rounded Shoulders (5'2 172#) Wound/Skin WFL;drain in place Comments Pt cooperative throughout. Denies any HAUSER/dizziness. Denies any new onset sensation changes. ROM Comments WFL;lumbar precautions Strength Comments At least 3/5 throughout as demo /c functional tasks Outcome Measures AM-PAC Inpatient Mobility AM-PAC Inpatient Mobility Response Value Turn Back/Side While Flat WO Bedrails None 4 Move From Lying to Side of Bed WO Bedrails None 4 Move To/From Bed to Chair None 4 Stand Up From Chair Using Arms None 4 Walk in Hospital Room None 4 limb 3-5 Steps W Railing A Little 3 otal 23 Mobility Transfers Supine to Sit Standby Assist Sit to Stand Standby Assist Stand to Sit Supervision Weight Bearing No Restrictions Comments Supine-sit /c min VC for logroll, good return demo. Sit-stands EOB and at chair;BUE assist, steady transfer. Gait Patient ambulated With Supervision, With Standby Assist With Assistive Device None For (Feet) 60x2 Comments [address]ace in place. Pt /c slow sidra, step through gait, slightly guarded posture. 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 Pt agreeable to use of her cane for long distance mobility upon d/c. Stairs Steps Up 2 Steps Down 2 Device Right Handrail Pattern Non-Reciprocating Assistance Required With Supervision Comments Pt cued for technique /c good return demo Treatment Additional Minutes of Tx Performed 10 Remained in Chair All Needs Within Reach Yes Comments Pt instructed on all lumbar precautions, logroll, activity AND d/c recs. Pt completed supine BLE antiembolics x10 /c review of written handout. Further discussion of gait/stair training /c appropriate AD. Assessment/Plan for Inpt PT Discharge Recommendations Home-No Home Health Care Topic #1 Role of PT, precautions, HEP Teaching Method: TEACHBACK Outcome: VERBALIZED/ADEQ TEACHBACK Problems Decreased ROM, Pain Rehab Potential Good Treatment Tolerance Good Assessment Pt presents /c above problem list s/p lumbar sx /c postop pain/precautions. Pt demonstrates ability to safely complete all functional mobility tasks at supervision level within precautions. No further acute PT needs. Recommend d/c home /c family assist. Patient Stated Goal: NA Patient Status DISCHARGED Eval Completed Yes Eval Complexity Low Treatment Performed Yes Electronically Signed eSign Date and Time Tiffanie Bashir PT 09/05/20 1502 Normal [facility] GLUCOSE METERon 09-04-2020 Glucose [Mass/Vol] 94 mg/dL Normal 70-99 [facility] Comment on above: Result Comment: Fast ing GLUCOSE reference range has been updated per (ADA) [place] [employer]'s recommendation. 07/18/2018 Performed By: #### L [phone] ####Test performed at: [place] [address] Internal Medicine Consultati onon 09-04-2020 Internal Medicine Consultation [facility] Patient: CARROLL HARDEN [address] [place] [address] MR#: [id number] CONSULTATION - Internal Medicine : 58 Service Date: 09/04/20 1547 History of Present Illness Referring Physician Tera Hernandez MD Consulted Physician Barry Haines MD Reason for Consult Postoperative medical management Chief Complaint/Present Illness: s/p L4-L5 Laminectomy, Foraminectomy, Decompression. HPI Ms. Harden is a 60 yo F with a PMHx of DM2 well controlled, HTN, migraines, HLD, Hypothyroidism, ADAN, restless legs, Hysterectomy and ovaries removed, partial thyroidetomy , C5-C6 surgeries x 2 (most recent 2018), bilateral shoulder replacement, cardiac cath 2016 which was okay, who is POD-0 s/p Left L4-L5 laminectomy, foraminectomy, decompression. Surgery was uncomplicated, EBL < 30 cc, WILL drain in place, no butt. IM consulted for postoperative medical management. Pt reports mild lumbar surgery pain, nonradiating, no other complaints. Denies any headaches, lightheadedness, dizziness, nausea, vomiting, abdominal pain, fevers, chills, chest pain, cough, SOB, numbness or tingling down LE. Will continue to follow. Medical/Surgical History Past Medical History PMH Other/Comment DM2 well controlled, HTN, migraines, HLD, Hypothyroidism, ADAN, restless legs, Hysterectomy and ovaries removed, partial thyroidetomy, C5-C6 surgeries x 2 (most recent 2018), bilateral shoulder replacement, cardiac cath 2016 which was okay Transfusion Status CONSERVATION Transfusion Reaction NO PREVIOUS TRANSFUSIONS Allergies/Home Medications Allergies Coded Allergies: HYDROMORPHONE (From DILAUDID) (Severe, RESPIRATORY ARREST 12/11/18) IODINE (Intermediate, HIVES 12/11/18) LATEX (Intermediate, HIVES 12/11/18) MEPERIDINE (From DEMEROL) (Intermediate, LOW BLOOD PRESSURE 12/11/18) SUMATRIPTAN (From IMITREX) (Intermediate, HIVES 12/11/18) Uncoded Allergies: DHE (Severe, RESPIRATORY ARREST 12/11/18) CONTRAST DYE (Intermediate, HIVES 12/11/18) FLU VACCINE (Intermediate, HIVES 12/11/18) Reconcile Medications Scheduled Medications Aspirin * 325 MG TABLET 325 MG PO DAILYWM, Ref 0 (Reported) Entered as Reported by LUZ CABELLO on 09/04/20 1057 Last Action: Reviewed on 09/04/201056 by LUZ CABELLO Atenolol * (Tenormin *) 50 MG TABLET 50 MG PO DAILY MIGRAINES, Ref 0 (Reported) Entered as Reported by JORDON MATHUR on 12/11/18 0920 Last Action: Reviewed on 09/04/20 105 by LUZ CABELLO Citalopram Hydrobromide * (CeleXA *) 40 MG TABLET 40 MG PO DAILY DEPRESSION, Ref 0 ( Reported) Entered as Reported by JORDON MATHUR on 12/11/18916 Last Action: Reviewed on 09/04/201054 by LUZ CABELLO clonazePAM * (KlonoPIN 0.5mg Tablet*) 0.5 MG TABLET 1.5 MG PO QHS RESTLESS LEG, Ref 0 ( Reported) Entered as Reported by JORDON MATHUR on 12/11/18918 Last Action: Reviewed on 09/04/201054 by LUZ CABELLO Glimepiride * (Amaryl *) 4 MG TABLET 4 MG PO DAILY, Ref 0 (Reported) Entered as Reported by JORDON MATHUR on 12/11/18915 Last Taken: 09/03/20 Last Action: Reviewed on 09/04/201054 by LUZ CABELLO Levothyroxine Sodium * (Synthroid *) 125 MCG TABLET 125 MCG PO DAILY HYPOTHROIDISM, Ref 0 (Reported) Entered as Reported by JORDON MATHUR on 12/11/18920 Last Action: Reviewed on 09/04/201054 by LUZ CAEBLLO Metformin HCl (Glucophage) 500 MG TABLET 500 MG PO BID DIABETES, Ref 0 (Reported) Entered as Reported by JORDON MATHUR on 12/11/18920 Last Action: Reviewed on 09/04/201054 by LUZ CABELLO Nabumetone * (Relafen *) 500 MG TABLET 1,000 MG PO BID, Ref 0 (Reported) Entered as Reported by LUZ CABELLO on 09/04/201050 Last Action: Reviewed on 09/04/201054 by LUZ CABELLO Pravastatin Sodium * (Pravachol *) 20 MG TABLET 20 MG PO QHS HIGH CHOLESTROL, Ref 0 ( Reported) Entered as Reported by JORDON MATHUR on 12/11/18916 Last Action: Reviewed on 09/04/201054 by LUZ CABELLO tiZANidine HCl * (Zanaflex *) 4 MG TABLET 4 MG PO QHS MUSCLE SPASMS, Ref 0 (Reported) Entered as Reported by JORDON MATHUR on 12/11/18915 Last Action: Reviewed on 09/04/201054 by LUZ CABELLO Scheduled PRN Medications Oxycodone HCl * (Roxicodone 5mg Tablet*) 5 MG TABLET 5 MG PO BIDPRN PRN Pain, Ref 0 ( Reported) Entered as Reported by LUZ CABELLO on 09/04/20 1049 Last Action: Reviewed on 09/04/20 105 by LUZ CABELLO Rizatriptan Benzoate* (Maxalt*) 10 MG TABLET 10 MG PO BIDPRN PRN MIGRAINES, Ref 0 ( Reported) Entered as Reported by JORDON MATHUR on 12/11/18 0915 Last Action: Reviewed on 09/04/20 105 by LUZ CABELLO Discontinued Medications oxyCODONE HCl 5mg AND Acetaminophen 325mg * (Percocet 5mg/325mg Tablet *) 1 EACH TABLET 1 EACH PO Q4-6H PRN PRN post op pain 7 Days #40 TABLET, Ref 0 Discontinued reason: DC'ed by Physician Last Action: Discontinued on 09/04/20 104 by LUZ CABELLO Review of Systems (more content not included)... Normal [facility] OPERATIVE REPORTon OPERATIVE REPORT NAME: CARROLL HARDEN MR#: [id number] SURGEON: Tera Hernandez MD DATE OF SURGERY: 09/04/2020 OPERATIVE REPORT PREOPERATIVE DIAGNOSIS: Lateral recess stenosis with radiculopathy, lumbar. POSTOPERATIVE DIAGNOSIS: Lateral recess stenosis with radiculopathy, lumbar. OPERATIVE PROCEDURE: Left L4-5 laminotomy, foraminotomy, and decompression. DETAILS OF PROCEDURE: After anesthesia, the patient was placed prone on a spine frame. Care was taken to avoid injury to the eyes, axilla, and the median and ulnar nerves. The back was prepped and draped in the usual fashion. The incision was planned using a needle and C-arm. A longitudinal incision was made over L4-5 with sharp dissection of subcutaneous tissues. The fascia and paraspinal muscles were dissected bluntly down to the left L4-5 interspace, and the tubular retractor was inserted and x-ray confirmed position in AP and lateral planes. The left L4 lamina was cleared of soft tissue and directly visualized. Under magnification, the lamina and medial facet were thinned with a bur. Laminotomy was performed removing the inferior aspect of the L4 lamina with Kerrison rongeurs. Partial medial facetectomy was performed with Kerrison rongeurs. The ligamentum was released with a nerve hook and removed with Kerrison rongeurs while protecting the dura. The superior aspect of the L5 lamina was removed with Kerrison rongeurs. In doing so, the traversing L5 root was well decompressed. The lateral recess was decompressed with straight and curved Kerrison rongeurs and foraminotomy was performed with curved Kerrison rongeurs. After thorough decompression, the epidural space was palpated with a Rivera hook. The foramen was patent. The exiting L4 root was well decompressed, the lateral recess was well decompressed, and the traversing L5 root was well decompressed. The wound was irrigated with saline solution. Hemostasis was achieved with FloSeal. The tubular retractor was removed and bleeding coagulated along the way. A silastic drain was left deep in the wound exiting through separate stab incision. The paraspinal muscles were injected with 0.5% Marcaine. The fascia, subcutaneous tissues, and skin were closed in the usual manner. Dressings were applied. The patient was awoken and taken to the recovery room in excellent condition, and there were no complications. TERA HERNANDEZ MD [facility] [place] NAME: CARROLL HARDEN MR#: [id number] [address] [place] [address] ACCT: [id number] : 58 OPERATIVE REPORT JFS/MODL/[id number] E/S: Tera Hernandez MD 09/18/20 1207 Electronically Signed [facility] NAME: CARROLL HARDEN MR#: [id number] [address] [place], [place] [id number] ACCT: [id number] : 58 OPERATIVE REPORT Normal [facility] Primary Residenton Primary Resident [facility] Pt Name: CARROLL HARDEN MR#: [id number] [facility] [address] ACCT: [id number] [place] [address] : 58 Service Date: 09/04/20 1603 Primary Resident/Call Primary Resident: [id number] After Hours Call: [phone] Red Team Electronically Signed eSign Date and Time Ana Flanagan RES 09/16/20 1521 Normal [facility] LUMBAR SPINE 2 OR 3 VIEWSon 09-03-2020 LUMBAR SPINE 2 OR 3 VIEWS STUDY: LUMBAR SPINE 2 OR 3 VIEWS; 09/04/2020 2:57 pm INDICATION: LEFT L4-L5 LAMINECTOMY,FORAMINOT JOSE ANGEL,DECOMPRESSION. COMPARISON: None. ACCESSION NUMBER(S): [id number] ORDERING CLINICIAN: Tera Hernandez FINDINGS: Intraoperative fluoroscopy of the lumbar spine demonstrates surgical instruments posterior to L5. IMPRESSION: As above Normal [facility] CHEST PA/AP & LATERALon CHEST PA/AP & LATERAL STUDY: CHEST PA/AP LATERAL; 08/25/2020 11:00 am INDICATION: SOB/PAT. COMPARISON: None. ACCESSION NUMBER(S): [id number] ORDERING CLINICIAN: Madelyn Leslie FINDINGS: The lungs are clear without pleural effusion. Normal heart size, mediastinum, elzbieta, and pulmonary vasculature. IMPRESSION: No active disease in the chest. 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 Angel for preoperative clearance before undergoing surgery for L4-L5 radiculopathy and she has had neck surgeries in the past and bilateral shoulder replacements. No complications with anesthesia. Her functional capacity is over 4 METS. She denies chest pain, shortness of breath, nausea, vomiting, diarrhea, or constipation. No blood in the stools or black stools. PAST HISTORY: Significant for, 1. Diabetes, well controlled. 2. Hypertension/migraine . 3. Hyperlipidemia. 4. Hypothyroidism and ADAN. PREVIOUS SURGERIES: Includes, 1. Hysterectomy and ovaries removed. 2. Partial thyroidectomy. 3. C5-C6 surgeries x2. 4. Bilateral shoulder replacement. 5. She has had a cardiac cath in 2016, which was okayed. SOCIAL HISTORY: She denies smoking. No major use of alcohol or drugs. ALLERGIES: 1. DHEA. 2. Latex. 3. Iodine. 4. Imitrex. 5. Dilaudid. 6. Demerol. MEDICATION LIST: Includes Klonopin 1.5 mg at night, metformin 500 mg twice daily, atenolol 50 mg daily, Celexa 40 mg daily, nabumetone 500 mg twice daily, glimepiride 4 mg daily, Zanaflex 4 mg at night, pravastatin 20 mg at night, clonidine 0.1 mg b.i.d., rizatriptan as needed, levothyroxine 125 mcg daily. PHYSICAL EXAMINATION: VITAL SIGNS: She is 62 inches tall, 176 pounds, 97.4, 70, 16, and 100/70, pulse ox is 98% on room air. [facility] NAME: CARROLL HARDEN MR#: [id number] [address] [place] [address] ACCT: [id number] : 58 CONSULTATION HEENT: Atraumatic head. Pupils are equal. She wears glasses. Oral mucosa is normal. NECK: Supple. She has no dentures. No thyromegaly. No carotid bruit. LUNGS: Clear. HEART: S1, S2 present. Regular rate and rhythm. ABDOMEN: Soft, nontender. She has got bilateral shoulder replacement. No organomegaly. NEURO: She is awake, alert, and oriented x3. Cranial nerves, motor, sensory reflexes are within normal limits. She has got chronic back pain radiating to the legs. LABORATORY DATA: Pending. DIAGNOSTIC DATA: EKG, normal sinus rhythm. The patient states she had an echo and a Holter recently and we are getting the results from her manager human resources in [place]. IMPRESSION: 1. Preop clearance for L4-L5 disk surgery. 2. Generalized anxiety disorder. 3. Diabetes. 4. Migraines. 5. Hyperlipidemia. 6. Hypothyroidism. PLANS: The patient's EKG is within acceptable limits. Chest x-ray will be done. We are going to do a CBC and a BMP, which was done recently, which was within acceptable limits and I told her to stop the aspirin as well as nabumetone 5-7 days before the surgery and she can continue all her other medications. I told her not to take the metformin on the day of surgery. She is cleared for anesthesia with acceptable risk. Thank you for the courtesy of this consultation. MADELYN LESLIE MD MS/MODL/[id number] E/S: Madelyn Leslie MD 08/26/20 1750 Electronically Signed [facility] NAME: CARROLL HARDEN MR#: [id number] [address] [place] [address] ACCT: [id number] : 58 CONSULTATION Normal [facility] LUMB SP COMP W FLEX/EXT 6 VW S>on 08-08-2020 LUMB SP COMP W FLEX/EXT 6 VWS> STUDY: LUMB SP COMP W FLEX/EXT 6 VWS>; 08/08/2020 9:43 am INDICATION: BACK PAIN. COMPARISON: No available comparisons. ACCESSION NUMBER(S): [id number] ORDERING CLINICIAN: Tera Hernandez TECHNIQUE: 6 views of the lumbar spine. FINDINGS: 5 lumbar vertebral bodies are identified. The vertebral alignment is normal. The vertebral body heights are maintained. Moderate decrease in intervertebral disc space at L5-S1 level. Severe facet arthropathy at L3-L4 through L5-S1. Severe neural foraminal stenosis at L5-S1 level. No evidence of instability. Nonspecific bowel gas pattern. IMPRESSION: Severe facet arthropathy at L3-L4 through L5-S1 resulting in severe neural foraminal stenosis at L5-S1 level. No evidence of instability.. Normal [facility] XR SHLDR >/=3V AP/RUSH AP/OTH R RTon 07-03-2018 XR SHLDR >/=3V AP/RUSH AP/OTHR RT * * *Final Report* * * DATE OF EXAM: Jul 03 2018 9:32AM HMX [id number] - XR SHLDR >/=3V AP/RUSH AP/OTHR RT / PROCEDURE REASON: Glenohumeral arthritis, right * * * * Physician Interpretation * * * * RESULT: EXAMINATION / TECHNIQUE: XR SHLDR >/=3V AP/RUSH AP/OTHR RT HISTORY: S/P RT TSR X 2 WKS. Glenohumeral arthritis, right . COMPARISON: 06/20/2018 RESULT: Right shoulder arthroplasty is again seen in normal alignment. There is no periimplant fracture or lucency. Minor AC joint degenerative changes. IMPRESSION: Stable exam. Transcribed Using Voice Recognition Transcribe Date/Time: Jul 03 2018 10:16A Dictated by: KEVIN MUNIZ MD This examination was interpreted and the report reviewed and electronically signed by: KEVIN MUNIZ MD on Jul 03 2018 10:17AM EST [id number] N [facility] ANES Holly 06-20-2018 ANES POST HNO ID: [id number] Author: Rohit Velarde Service: Anesthesiology Author Type: Anesthesiologist Type: Anesthesia PostOp Filed: 06/20/2018 2:38 PM Note Text: POST ANESTHESIA EVALUATION NOTE SERVICE DATE: 06/20/2018 SERVICE TIME: 2:38 PM : 1960 Vitals: 06/20/18 0838 06/20/18 1325 Temp: 36.4 ?C (97.5 ?F) 36.3 ?C (97.3 ?F) 06/20/18 1345 06/20/18 1400 06/20/18 1415 06/20/18 1430 BP: 133/63 120/58 109/55 106/55 06/20/18 1345 06/20/18 1400 06/20/18 1415 06/20/18 1430 Pulse: 75 70 77 72 06/20/18 1345 06/20/18 1400 06/20/18 1415 06/20/18 1430 Resp: 16 16 16 16 06/20/18 1345 06/20/18 1400 06/20/18 1415 06/20/18 1430 SpO2: 93% 97% 96% 97% Validated Vital Signs: Yes POST ANES STATUS: No apparent anesthetic complications. The patient is appropriately hydrated with stable respiratory and cardiovascular status. Patient has safe and adequate airway control. The patient has appropriate pain relief and no significant post operative nausea or vomiting. The patient has achieved baseline mental status. Intra-Operative Events: No Significant Anesthesia Events Further assessment by Anesthesia Service: None Other Remarks: SIGNATURE: Rohit Velarde MD PATIENT NAME: Carroll Harden DATE: June 20, 2018 TIME: 2:38 PM PAGER/CONTACT #: [facility] ANES PREOPon 06-20-2018 ANES PREOP HNO ID: [id number] Author: Rohit Velarde Service: Anesthesiology Author Type: Anesthesiologist Type: Anesthesia PreOp Filed: 06/20/2018 9:41 AM Note Text: ANESTHESIOLOGY DAY OF SURGERY NOTE SERVICE DATE: 06/20/2018 SERVICE TIME: 9:40 AM : 1960 Procedure(s) (LRB): ARTHROPLASTY TOTAL SHOULDER; W/ GLENOID AND PROXIMAL HUMERAL REPLACEMENT (Right) Surgeon(s): Jenna Lentz Estimated body mass index is 33.29 kg/m? as calculated from the following: Height as of 06/07/18: 157.5 cm (5' 2 ). Weight as of this encounter: 82.6 kg (182 lb). Most recent hematocrit and potassium results: Hematocrit 40.7 06/07/2018 Potassium 5.1 06/07/2018 ANES DOS/PREOP NOTE: Vitals: 06/20/18 0838 06/20/18 0908 BP: 111/54 Pulse: 68 Resp: 14 Temp: 36.4 ?C (97.5 ?F) TempSrc: Temporal Artery SpO2: 97% Weight: 82.6 kg (182 lb) ACTIVE PROBLEM LIST Glenohumeral Arthritis Primary Osteoarthritis of Left Shoulder Status Post Total Shoulder Arthroplasty Glenohumeral Arthritis, Right Status Post Replacement of Left Shoulder Joint Type 2 Diabetes Mellitus Without Complication, Without Long-Term Current Use of Insulin (Hcc) Stephanie (Obstructive Sleep Apnea) Mixed Hyperlipidemia PAST MEDICAL HISTORY Diagnosis Date - Arthritis - Borderline diabetes mellitus - Depression - Diabetes (HCC) - Sharmin thyroiditis - Hyperlipidemia - Hypertension - Migraines 4x/year, previously more but had facial plastic surgery which improved sx - STEPHANIE (obstructive sleep apnea) 06/07/2018 PAST SURGICAL HISTORY Procedure Laterality Date - ANTERIOR INTERBODY FUSION, CERVICAL 1992 C5-6 - APPENDECTOMY - ARTHROSCOPIC RELEASE SHOULDER JOINT 12/2009 right - ;TOTAL HYSTERECTMY TUBE(S) AND/OR OVARY 1999 - DELIVERY ONLY - KNEE ARTHROSCOPY 2007 left - PAST SURGICAL HISTORY OF Left 10/2016 shoulder replacement - REMOVE TONSILS/ADENOIDS,<11 Y/O 1964 - REVISE MEDIAN N/CARPAL TUNNEL SURG bilateral - SEPTOPLASTY 2000 and multiple other facial procedures to reduce migraines - THYROIDECTOMY 1994 FAMILY HISTORY Problem Relation Age of Onset - Diabetes Father - Hypertension Father - Heart Father - Carotid Disease Father - Arthritis Mother - other (cholesterol) Mother - Breast Cancer Maternal Grandmother - Diabetes Paternal Grandmother - Stroke Paternal Grandmother Social History: Social History Substance Use Topics - Smoking status: Never Smoker - Smokeless tobacco: Never Used - Alcohol use Yes Comment: a few times a year No current facility-administered medications on file prior to encounter. Current Outpatient Prescriptions on File Prior to Encounter: naproxen sodium (ALEVE) 220 mg tablet Take 220 mg by mouth twice daily with meals. metFORMIN (GLUCOPHAGE) 500 mg tablet Take 500 mg by mouth daily before breakfast. citalopram (CELEXA) 40 mg tablet Take 40 mg by mouth once daily. nabumetone (RELAFEN) 500 mg tablet Take 500 mg by mouth twice daily. glimepiride (AMARYL) 4 mg tablet Take 4 mg by mouth daily with breakfast. ondansetron (ZOFRAN, HYDROCHLORIDE,) 4 mg tablet Take 4 mg by mouth every 8 hours as needed for Nausea/Vomiting. levothyroxine (SYNTHROID) 125 mcg ORAL tablet Take 125 mcg by mouth once daily. atenolol 50 mg ORAL tablet Take 50 mg by mouth once daily. CLONAZEPAM (KLONOPIN ORAL) Take 1.5 mg by mouth daily at bedtime. pravastatin 20 mg ORAL tablet Take 20 mg by mouth daily at bedtime. amoxicillin (POLYMOX, AMOXIL) 500 mg capsule 4 tablets one hour prior to the procedure Current Facility-Administered Medications: lidocaine 10 mg/mL (1 %) 1-2 mg injection (XYLOCAINE) 0.1-0.2 mL INTRADERMAL PRN Isreal R (Santos) Trent lactated ringers infusion 5-30 mL/hr INTRAVENOUS CONTINUOUS Isreal Eliot (Santos) Noble ceFAZolin iv piggyback 2 g in D5W (iso-osmotic) 100 mL (ANCEF) 2 g INTRAVENOUS Pre-Op Once Isreal R (Pa) Trent acetaminophen 1,000 mg tab(s) (TYLENOL) 1,000 mg ORAL ONCE Isreal R (Pa) Noble bupivacaine liposome (PF) 1.3 % (13.3 mg/mL) 133 mg injection (EXPAREL) 133 mg INFILTRATION ONCE Rohit Podolyak midazolam (PF) 2-4 mg injection (VERSED) 2-4 mg INTRAVENOUS ONCE Rohit Podolyak Allergies: ALLERGIES Allergen Reactions - Contrast Dye Anaphylaxis - Demerol [Meperidine* Other: See Comments hypotension - Imitrex [Sumatripta* Hives - Influenza Vaccine T* Hives - Latex Anaphylaxis - Betadine [Povidone-* Hives, Itching - Dhe Other: See Comments Respiratory arrest - Dilaudid [Hydromorp* Other: See Comments resiratory arrest ECG (06/07/18): Diagnosis:NORMAL SINUS RHYTHM POSSIBLE LEFT ATRIAL ENLARGEMENT BORDERLINE ECG DOS EXAM: Adequate NPO status: Yes Anesthetic risks, benefits, alternatives, personnel and consent discussed: Yes Patient agrees to proceed: Yes Previous Anesthesia: No history of adverse event. Airway Assessment: MP 2; Neck ROM: Full ROM without neurologic symptoms; Airway Evaluation: Short Neck Symptoms of Sleep Apnea: Hypertension, Age over 50 (58 year old) and Neck circumference > 15.75 inches Dentition: Teeth intact Additional Physical Exam: Lungs: Patient health status unchanged since recent history and physical. See history and physical for exam findings. Cardiac: Patient health status unchanged since recent history and physical. See history and physical for exam findings. Additional Pertinent Findings: N/A Blood Products: Will accept blood products. Anesthetic Plan: General, Standard ASA Monitors Pain Management Plan: Parenteral or Oral and Peripheral Nerve Block ASA Class: 3 Other Medical Problems: None Chronic Beta Maria Esther medication administered within 24 hours: Yes I have interviewed and examined the patient. I have reviewed the medical record and/or the pre-anesthesia evaluation, pertinent labs, and test results. Significant changes in the patient's condition since the History and Physical, not otherwise documented in primary service progress notes: No This contains updated information obtained within 48 hours of Surgery/Procedure. SIGNATURE: Rohit Velarde MD PATIENT NAME: Carroll Harden DATE: June 20, 2018 TIME: 9:35 AM CSN: [id number] [facility] BRIEF OP NOTon 06-20-2018 BRIEF OP NOT HNO ID: [id number] Author: Kusum Francisco Service: Orthopaedic Surgery Author Type: Resident Type: Brief Op Note Filed: 06/20/2018 5:49 PM Note Text: BRIEF OP NOTE LOG ID: [id number] Surgery/Procedure Date: 06/20/2018 Incision/Procedure Start Time: 11:18 AM Incision Close/Procedure End Time: 1:17 PM Surgeon(s)/Procedural ist(s) and [place] Line Attendant(s): Surgeon(s) and Role: * Jenna Lentz - Primary * Augie Ortega - Fellow * Kusum Francisco - Resident - Assisting Procedure(s): right total shoulder arthroplasty Anesthesia: General Findings: glenohumeral arthritis Estimated Blood Loss: 150 mls Specimens: None Complications: None Pre-Op/Pre-Procedure Diagnosis: glenohumeral arthritis Post-Op/Post-Procedur e Diagnosis: Glenohumeral arthritis, right [M19.011] SIGNATURE: Kusum Francisco MD PATIENT NAME: Carroll Harden DATE: June 20, 2018 TIME: 5:49 PM PAGER/CONTACT #: [facility] CASE MANAGEMon 06-20-2018 CASE MANAGEM HNO ID: [id number] Author: May Herrera (Sw) Service: Care Management Author Type: Mechanic Welder Truck Driver Type: Care Mgt Progress Note Filed: 06/20/2018 5:35 PM Note Text: CARE MANAGEMENT DISCHARGE NOTE SERVICE DATE: 06/20/2018 SERVICE TIME: 5:30P LOS: 0 days Admission Date: 06/20/2018 DISCHARGE ARRANGEMENT (list agency and phone number) Home Provider: Dr Cruz () CAREGIVER ASSESSMENT: Caregiver is ready, willing and able to meet the patient's needs as recommended by the inter-professional team? No Caregiver Needed Patient's transition needs and plan for meeting these needs: Follow up with ortho Does the patient have an acute stroke diagnosis, or has the patient had a stroke during this admission? No HANDOFF COMMUNICATION: Primary Care Physician: Dr Cruz is pcp summary of care sent via [employer] () Nurse to provide discharge instructions. TRANSPORTATION ARRANGEMENTS: Car Spouse ADDITIONAL CONTACT RESOURCES: Needs Prior to Discharge: Ready for Discharge Appointments for Next 45 Days Date Time Provider Location Dept Phone 07/03/2018 10:00 AM CAROLA BAPTISTE AT [phone] 07/03/2018 10:30 AM GABRIEL CANTU) LATOSHA AT [phone] 07/31/2018 2:15 PM JENNA LENTZ AT [phone] Pt to be discharged home to follow up as above. SIGNATURE: DARIO Saini PATIENT NAME: Carroll Harden DATE: June 20, 2018 TIME: 5:31 PM PAGER/CONTACT #: [phone] [facility] CASE MGT INIT [facility] 2018 CASE MGT INIT [facility] HNO ID: [id number] Author: May Herrera (Sw) Service: Care Management Author Type: Mechanic Welder Truck Driver Type: Care Mgt Initial Assessment Filed: 06/20/2018 5:31 PM Note Text: CARE MANAGEMENT: ASSESSMENT AND DISCHARGE PLAN SERVICE DATE: 06/20/2018 SERVICE TIME: 5:27p PRIMARY CARE PHYSICIAN: Robert Cruz MD ADMISSION STATUS: Inpatient Needs Prior to Discharge: Ready for Discharge MEDICAL: Patient/Representativ e Stated Goals: To improve my functional status Health Insurance: MMO SUPERMED None Health Issues Impacting Discharge Plan: Pt had right total shoulder Last Admission Date: Previous admit date: 11/18/2016 Is this Within the Past 30 days? No Advance Directive: Current Advance Directive: Living Will In Chart: Yes Up To Date and Valid: Yes Health Literacy: 1. How often do you need to have someone help you when you read instructions, pamphlets, or other written material from your doctor or pharmacy? Never - 1 2. How confident are you filling out medical forms by yourself? Extremely - 1 If Patient scores > 3 on either question, the following interventions were put into place: Patient did not score > 3 FUNCTIONAL AND COGNITIVE/BEHAVIORAL PRIOR TO ADMISSION: Baseline Mental Status: Alert AND Oriented, Person, Place , Time and Situation Functional Status: Independent Does Patient Currently Receive Any Community Services or Home Care? None Equipment Prior to Admission: None Has the Patient Been in a Fdc Facility in the Past 30 days? 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 No Caregiver Needed Patient's transition needs and plan for meeting these needs: Follow up with ortho Does the patient have an acute stroke diagnosis, or has the patient had a stroke during this admission? No Medication Adherence: I am convinced of the importance of my prescription medication: Agree completely - 0 I worry that my prescription medication will do more harm than good to me Disagree completely - 0 I feel financially burdened by my pia-fh-pkrckc expenses for my prescription medication: Disagree completely - 0 Patient is categorized as low risk < 2 Are you interested in bedside delivery of your medications? No Food Concerns: In the Last Month, Have You had Trouble Getting Food? No trouble getting food During the Last Month, Have You Worried Whether Your Food Would Run Out Before You Had Enough Money to Buy More? No Is the Patient Psychosocially Complex? No ASSESSMENT AND PLAN: Medical Needs: 2 or more chronic diseases Psychosocial Needs: None FREEDOM OF CHOICE EXPLAINED: Yes PT TBD POTENTIAL TRANSITION PLANS No Services Indicated 06/20/2018 5:19 PM Pt admitted due to OA right shoulder. Pt had Right total shoulder arthroplasty done on 06/20/18. 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 O.Therapy recommend home. Spouse visiting at bedside and will transport pt home later today.Further discharge needs not anticipated.SW/TCC to follow to assist with plans for discharge. SIGNATURE: DARIO Saini PATIENT NAME: Carroll Harden DATE: June 20, 2018 TIME: 5:27 PM PAGER/CONTACT #: [phone] [facility] CONSULTon 06-20-2018 CONSULT HNO ID: [id number] Author: Dulce Green Service: General Internal Medicine Author Type: Nurse Practitioner Type: Consults Filed: 06/20/2018 4:44 PM Note Text: HISTORY AND PHYSICAL EXAMINATION PATIENT NAME: Carroll Harden SERVICE DATE: 06/20/2018 SERVICE TIME: 410pm PRIMARY CARE PHYSICIAN: Robert Cruz MD REASON FOR CONSULT: Perioperative managment CHIEF COMPLAINT: S/p Right Total Shoulder Arthroplasty HPI: This is a 58 year old female with history of STEPHANIE, migraines, HTN, HLD, sharmin thyroiditis, DM, depression, who presents with complaints of worsening right shoulder pain. She states she has had pain for more than a year. She went to see Dr Lentz in Apr, XR showed advanced OA. She underwent Right Total Shoulder Arthroplasty per DR Lentz today. She is laying in bed ,seen by OT as she wants to go home later today and not stay overnight. She states she has numbness and getting better and no pain. PAST MEDICAL HISTORY: PAST MEDICAL HISTORY Diagnosis Date - Arthritis - Borderline diabetes mellitus - Depression - Diabetes (HCC) - Sharmin thyroiditis - Hyperlipidemia - Hypertension - Migraines 4x/year, previously more but had facial plastic surgery which improved sx - STEPHANIE (obstructive sleep apnea) 06/07/2018 PAST SURGICAL HISTORY: PAST SURGICAL HISTORY Procedure Laterality Date - ANTERIOR INTERBODY FUSION, CERVICAL 1992 C5-6 - APPENDECTOMY - ARTHROSCOPIC RELEASE SHOULDER JOINT 12/2009 right - ;TOTAL HYSTERECTMY TUBE(S) AND/OR OVARY 1999 - DELIVERY ONLY - KNEE ARTHROSCOPY 2007 left - PAST SURGICAL HISTORY OF Left 10/2016 shoulder replacement - REMOVE TONSILS/ADENOIDS,<11 Y/O 1963 - REVISE MEDIAN N/CARPAL TUNNEL SURG 1989' bilateral - SEPTOPLASTY 2000 and multiple other facial procedures to reduce migraines - THYROIDECTOMY 1994 FAMILY HISTORY: FAMILY HISTORY Problem Relation Age of Onset - Diabetes Father - Hypertension Father - Heart Father - Carotid Disease Father - Arthritis Mother - other (cholesterol) Mother - Breast Cancer Maternal Grandmother - Diabetes Paternal Grandmother - Stroke Paternal Grandmother SOCIAL HISTORY: Social History Substance Use Topics - Smoking status: Never Smoker - Smokeless tobacco: Never Used - Alcohol use Yes Comment: a few times a year MEDICATIONS: Prior to Admission Medications Prescriptions Prior to Admission: calcium phosphate dibas/vit D3 (VITAMIN D, WITH CALCIUM, ORAL) Take 800 mg by mouth once daily. Disp: Rfl: 06/19/2018 at 0630 rizatriptan (MAXALT TOWER HOIST OPERATOR) 10 mg disintegrating tablet DISSOLVE 1 TABLET IN MOUTH NEEDED FOR HEADACHE, MAY REPEAT IN 2 HOURS IF NEEDED Disp: Rfl: 2 2-3 weeks mupirocin (BACTROBAN) 2 % ointment Apply 0.5 inch with cotton swab (Q-tip) to each nostril in the morning and evening for 5 days prior to and including day of surgery. Disp: 22 g Rfl: 0 06/20/2018 at 0600 naproxen sodium (ALEVE) 220 mg tablet Take 220 mg by mouth twice daily with meals. Disp: Rfl: Past Week at Unknown time metFORMIN (GLUCOPHAGE) 500 mg tablet Take 500 mg by mouth daily before breakfast. Disp: Rfl: 3 06/19/2018 at 0630 citalopram (CELEXA) 40 mg tablet Take 40 mg by mouth once daily. Disp: Rfl: 06/20/2018 at 0600 nabumetone (RELAFEN) 500 mg tablet Take 500 mg by mouth twice daily. Disp: Rfl: Past Week at Unknown time glimepiride (AMARYL) 4 mg tablet Take 4 mg by mouth daily with breakfast. Disp: Rfl: 06/19/2018 at 0630 ondansetron (ZOFRAN, HYDROCHLORIDE,) 4 mg tablet Take 4 mg by mouth every 8 hours as needed for Nausea/Vomiting. Disp: Rfl: PRN levothyroxine (SYNTHROID) 125 mcg ORAL tablet Take 125 mcg by mouth once daily. Disp: Rfl: 06/20/2018 at 0600 atenolol 50 mg ORAL tablet Take 50 mg by mouth once daily. Disp: Rfl: 06/20/2018 at 0600 CLONAZEPAM (KLONOPIN ORAL) Take 1.5 mg by mouth daily at bedtime. Disp: Rfl: 06/19/2018 at 2200 pravastatin 20 mg ORAL tablet Take 20 mg by mouth daily at bedtime. Disp: Rfl: 06/19/2018 at 2200 amoxicillin (POLYMOX, AMOXIL) 500 mg capsule 4 tablets one hour prior to the procedure Disp: 4 capsule Rfl: 0 6 months In-Patient Medications Current hospital medications Medication - lidocaine 10 mg/mL (1 %) 1-2 mg injection (XYLOCAINE)Disp: Rfl: - lactated ringers infusionDisp: Rfl: - ceFAZolin iv piggyback 2 g in D5W (iso-osmotic) 100 mL (ANCEF)Disp: Rfl: - lactated ringers infusionDisp: Rfl: - morphine 2 mg injectionDisp: Rfl: - oxyCODONE-acetaminoph en 5-325 mg 1-2 tablet (PERCOCET)Disp: Rfl: - acetaminophen 325-650 mg tab(s) (TYLENOL)Disp: Rfl: - [START ON 06/21/2018] polyethylene glycol 3350 17 g packet (MIRALAX, GLYCOLAX)Disp: Rfl: - melatonin 3 mg tab(s)Disp: Rfl: ALLERGIES: ALLERGIES Allergen Reactions - Contrast Dye Anaphylaxis - Demerol [Meperidine* Other: See Comments hypotension - Imitrex [Sumatripta* Hives - Influenza Vaccine T* Hives - Latex Anaphylaxis - Betadine [Povidone-* Hives, Itching - Dhe Other: See Comments Respiratory arrest - Dilaudid [Hydromorp* Other: See Comments resiratory arrest COMPLETE REVIEW OF SYSTEMS: GENERAL: No weight loss, malaise or fevers. HEENT: Negative for significant vision problems, hearing loss, hoarseness RESPIRATORY: Negative for cough, wheezing or shortness of breath. CARDIOVASCULAR: Negative for leg swelling, palpitations, orthopnea GI: Negative for abdominal discomfort, change in bowel habit, diarrhea, nausea, vomiting NEURO: Negative for syncope, paralysis, seizures or tremors, + migraines hx. All other reviewed and negative other than HPI. PHYSICAL EXAM: 06/20/18 1430 06/20/18 1445 06/20/18 1500 06/20/18 1544 BP: 106/55 111/52 111/57 (!) 110/47 Pulse: 72 72 76 81 Resp: 16 14 16 16 Temp: 37 ?C (98.6 ?F) TempSrc: Oral SpO2: 97% 97% 98% 93% Weight: GEN: well appearing, female, in no acute distress. SKIN: skin color, texture, turgor normal. No rash. HEENT: no tenderness. PERRL. EOMI. Buccal mucosa moist. NECK: Supple, no adenopathy, no JVD. LUNGS: Clear LEX. No wheezes. CV: RRR. Normal s1/s2. No murmurs appreciated. ABD: Soft, non-tender, non-distended. Bowel sounds present x 4. EXT: surgical dressing to right shoulder intact, dry, ice to site . No edema. Peripheral pulses present. Calves soft and non-tender bilaterally. Sling in place. Fingers warm and mobile. NEURO: AANDOx3. Grossly intact. No focal deficits. DATA: No labs today, if she stays will get labs in am ASSESSMENT AND PLAN: Hx migraines: takes maxalt prn HTN; on atenolol HLD: on pravachol, will take tonight if she stays DM; on glyburide and metformin will take in am if she stays Sharmin's thyroiditis: on synthroid Depression: on celexa Primary osteoarthritis of right shoulder [M19.019], Status post total replacement of right shoulder [Z96.619]: with DR Lentz. Continue with PT/OT. Encourage strict IS. Acute postoperative pain of right shoulder [G89.18]: Pain controlled see HPI . Pain control goals were discussed. Continue with current medications. Control pain with meds ordered . Constipation [K59.00]: continue with bowel regimen while taking pain medications. DVT ppx: mobilize patient SCDs in bed . Ambulation with PT/OT. Case management for dc planning-seen by OT may possibly go home tonight per RN, medically clear today for DC if ortho is ok with DC. Discussed common complications and risks with the patient including fever, blood clots, constipation, pain, nausea/vomiting and infection. Encouraged use of incentive spirometer. Above was discussed and plan of care was developed with Dr. Blake. Please see additional comments and addendum. Thank you for allowing us to participate in the care of your patient. Dulce Green, JOSE E.DEVELOPMENTAL BEHAVIORAL PHYSICIAN June 20, 2018 4:34 PM Normal [facility] NURSING PROGon 06-20-2018 Protein mass conc HNO ID: [id number] Author: Fela (Rn) FLETCHER Phillips Service: (none) Author Type: Registered Nurse Type: Nursing Progress Note Filed: 06/20/2018 7:39 PM Note Text: Nursing Progress Note Patient Name: Carroll Harden Patient Location: [place]-523/ [place]-* Daily Note: 1545. Care assumed. Pt resting comfortably in bed, call light and possessions within reach. Lungs clear on RA, denies SOB and chest pain. Bowel sounds present, denies nausea. Sling immobilizer in place to R arm. Oren robinson. Sensation intact, able to wiggle fingers. Plan is to see OT, once cleared by them pt can be D/Anderson per Sun. 1400. OT at bedside. 1720. Dr. Blake and Dulce DEBONE PROCESSING SUPERVISOR at bedside, plan is to stay for dinner and receive second dose on ancef then be D/Anderson. 1830. DC instructions given to pt and , verbalized understanding and denies further questions. Patient educated on use of PRN pain medication during discharge teaching; Side effects of Narcotic medication pamphlet given to patient. Importance of taking medications with food to reduce risk of nausea and vomiting discussed. Discussed weaning off narcotics in a timely matter and to reach out to the physician if pain is not controlled or need for narcotic refills. The timing of medications, strengths, and safe doses reviewed on discharge summary. 1905. Pt leaving floor via wheelcahir, possessions with pt. This note was completed by: Fela Phillips RN [facility] Protein mass conc HNO ID: [id number] Author: Wendy (Rn) FLETCHER Underwood Service: Nursing Author Type: Registered Nurse Type: Nursing Progress Note Filed: 06/20/2018 10:20 AM Note Text: Nursing Progress Note Patient Name: Carroll Harden Patient Location: SURGERY CTR POOL/EU S* Daily Note:Right interscalene nerve block with ultrasound guidance with Dr. Velarde and Dr. Marlow at bedside. Patient tolerated procedure well, VSS, will continue to monitor as we wait for OR team. Resting comfortably with no complaints of pain at this time. This note was completed by: Wendy Underwood RN [facility] OPERATIVE NOon 06-20-2018 OPERATIVE NO HNO ID: [id number] Author: Jenna Lentz Service: Orthopaedic Surgery Author Type: Physician Type: Operative Report Filed: 06/20/2018 1:25 PM Note Text: [place] [id number] [place] OPERATIVE REPORT NAME: Carroll [facility] #: [id number] DATE: 06/20/2018 (11:18am-1:17pm) AGE: 58 SURGEON 1: Jenna Lentz M.D. COLLATOR HAND: 1. Augie Coates M.D. 2. Kusum Prasad M.D. 3. Mundo Pablo OPERATION: Right total shoulder arthroplasty, biceps tenodesis. ANESTHESIA: General anesthesia with regional interscalene nerve block for postoperative pain control. PREOPERATIVE DIAGNOSIS: Right shoulder primary glenohumeral osteoarthritis. POSTOPERATIVE DIAGNOSIS: Right shoulder primary glenohumeral osteoarthritis, biceps tendinopathy. OPERATIVE INDICATIONS: The patient is a 58 year olduhw-ship-sme right-hand dominant white female who has a history of chronic right shoulder pain from a diagnosis of glenohumeral arthritis. She has developed progressively worsening arthritic symptoms, including pain and loss of motion. Due to the failure of nonoperative management, discussion was had about surgical interventions. She was deemed a candidate for right total shoulder arthroplasty. The risks and benefits of the surgery, as well as the expected postoperative course were discussed with the patient at length. The patient understood the risks and benefits, and wished to proceed with the operation. OPERATIVE FINDINGS: There were arthritic changes of the glenohumeral joint on both the humeral and glenoid side, with extensive osteophyte formation along the humeral head. The subscapularis and superior and posterior rotator cuff were found to be intact intraoperatively. OPERATIVE PROCEDURE: On the day of surgery, the patient was seen in the preoperative area. The planned surgical procedure and the correct surgical site were again reviewed with the patient and the right upper extremity was marked. Prior to being taken back to the operating room, the patient did receive an interscalene nerve block in her right upper extremity for postoperative pain control. Preoperative antibiotics were given. The patient was then taken back to the operating room and intubated without complications. The patient was placed in the beach chair position, and the right upper extremity was prepped and draped in the usual sterile fashion. A standard 10-15 cm deltopectoral incision was made along the anterior aspect of the right shoulder. The incision was carried sharply down to the level of the deep fascia. The cephalic vein and deltoid were then taken laterally while the pectoralis major was taken medially, and dissection was taken through the deltopectoral interval. The upper 1-1.5 cm of the pectoralis major tendon was released from its attachment site on the humerus for greater exposure. The subdeltoid and subacromial spaces were developed deeply. The interval between the conjoined and subscapularis tendons was next developed up to the coracoacromial ligament, but this was not taken. Digital palpation was used to verify the integrity of the axillary nerve, which was protected throughout the procedure. The conjoint tendon was then retracted with the self-retaining retractor medially to expose the subscapularis tendon deep to this. The anterior humeral circumflex vessels were clamped and coagulated. The biceps sheath and rotator interval were then opened up. The long head of the biceps tendon showed advanced degenerative changes proximally consistent with tendinopathy. Therefore, the tendon was tenodesed to the upper border of the pectoralis major tendon insertion. The degenerative, more proximal remaining portion of the tendon was then excised up to its origin at the superior aspect of the glenoid. The bicipital groove was then further cleaned of soft tissue to better expose the lesser tuberosity and subscapularis insertion. A lesser tuberosity osteotomy was then performed using a curved, 1.5-inch osteotome. The subscapularis was then isolated and freed from the underlying capsule. Following medial retraction of the free lesser tuberosity osteotomy and subscapularis tendon, the capsule was then released, starting proximally at the rotator interval and moving distally down to the 6 o'clock position along the anatomic neck of the humeral head. The humeral head was then delivered into the wound with simultaneous adduction, extension, and external rotation. With the humeral head dislocated and exposed, the humeral osteophytes were removed along the anatomic neck. We then marked the anatomic neck with an extra-articular cutting guide with a fixed neck-shaft angle of 135 degrees. The humeral head cut was made along this marked site going anteriorly to posteriorly, making sure to exit posteriorly just above the reflection of the rotator cuff. It was noted that the posterior and superior rotator cuff were completely intact. The humeral cut was made in approximately 20-30 degrees of retroversion, leaving approximately 2-3 mm of bone above the superior and posterior rotator cuff reflection. We estimated the humeral head size to be a 42 mm. We did not finish the humerus at this point. We then brought the shoulder into an abducted, extended, and externally rotated position for exposure of the glenoid. The humerus was retracted posteriorly with a Fukuda retractor. The anterior capsule which had previously been dissected out was then isolated using a Alison and small and large Garcia elevators. This anterior capsule was then excised down to the rim of the glenoid. We released the remaining portion of the capsule to the base of the coracoid superiorly. The remaining biceps anchor, and the entire anterior, superior, posterior, and inferior labrum was excised. We did release the remaining inferior capsule, but did not released the posterior capsule with the labral excision. Following labral excision, the glenoid rim was noted to be completely exposed. The patient was noted to have evidence of glenoid wear, with some posterior wear and a biconcavity. We then placed a glenoid sizer disk which showed the glenoid to be a size 42 mm. Placement of the centering guide pin was then performed using the size 42 mm guide. We then brought in the 42 mm cannulated reamer over the centering guide pin and ream the glenoid just to the start of bleeding bone, correcting version and removing the biconcavity. The peripheral drill guide was placed over the guide pin and we drilled the three peripheral holes for the glenoid. The center hole was then drilled. The guide pin was then removed, and we noted that none of the peg holes violated the glenoid vault medially. We then placed a trial 42 mm glenoid and noted concentric seating of the glenoid trial along the reamed surface with good fit of the size 42 mm to the glenoid. The trial was then removed, and we pulse irrigated the glenoid and dried the peg holes. We then placed pressurized cement within the central peg hole. The final 42 mm anchor peg glenoid (DJO AltiVate Anatomic) was then impacted into the glenoid without difficulty. Again, the final glenoid implant showed good concentric fit along the entire glenoid surface. Pressure was left on the glenoid component until the cement had hardened. Once the cement had hardened, we redelivered the proximal humerus into the wound with adduction, extension, and external rotation. The humeral canal was reamed from the cut surface of the humerus. A 6-mm entry reamer was then placed into the humeral intramedullary canal. The canal was reamed up to a size 10 mm reamer and then broached. The trial size #10 broach was left in place and we then placed the cut surface reaming guide and reamed down any uneven surfaces flush with our broach. This showed a good cut surface for a 135-degree implant. Therefore, we then placed trial 42 x 16 mm centered heads, both centered and eccentric. The trial 42 x 16 mm centered head showed the best head coverage. We then reduced this trial implant into the glenoid, and this showed excellent soft tissue tensioning with excellent subscapularis length. The humerus was re-dislocated and the trial implant was removed. The final humeral implant was, therefore, a 10 stem, standard 135-degree neck, with a 42 x 16 mm centered head (DJO Altivate Anatomic). We placed one, #2 Fiberwire suture around the neck of the prosthesis prior to impaction. Three drill holes were then made along the bicipital groove and two #2 Fiberwire sutures were passed through the holes to create two loops out of the holes, with the loop of each suture left in the humeral canal to place the humeral stem through them. The final humeral prosthesis was then impacted into the humerus, taking care to keep each suture loop around the stem, and gave an excellent press fit. With the final humeral prosthesis in place, the shoulder was reduced, and the wound was copiously irrigated. The subscapularis and lesser tuberosity osteotomy were then repaired. The #2 Fiberwire suture around the neck of the prosthesis was then brought through the subscapularis tendon as a horizontal mattress and tied down to secure the osteotomy piece medially. A single rotator interval stitch was then passed in nuqzkv-[id number]-yjfyq fashion with a #2 Ticron suture and tied down to close the lateral rotator interval and set the osteotomy superiorly. The two #2 Fiberwire sutures coming out of the bicipital groove were then sequentially passed in a mjvens-iw-rkmeo fashion medial to the horizontal mattress and sequential tied down to finish securing the osteotomy to the osteotomy bed as a tension-band construct. This showed an excellent repair of the lesser tuberosity osteotomy and subscapularis back down to the original osteotomy bed site. Following this, all retractors were removed, and digital palpation was again used to confirm the integrity of the axillary nerve. The wound was again copiously irrigated. A total of 5 L of pulse irrigation was used throughout the case. The deltopectoral interval was loosely closed with interrupted, #1 Vicryl stitches. The subcutaneous layer was then closed with interrupted, 2-0 Vicryl stitches. A running subcuticular 3-0 Prolene suture was then used to close the skin. Steri-Strips were placed over the incision site, and the wound was sterilely dressed with Adaptic, 4x4 gauze, ABD dressing, and Foam tape. The shoulder was then placed in an abduction sling. The patient was awoken without complications and extubated. She was transferred to the PACU in stable condition. Opening of the procedure and closing of the incision was performed by Augie Coates M.D., Kusum Prasad M.D., and Mundo Pablo, with the primary surgeon (Jenna Lentz M.D.) readily available. The remainder of the procedure, including all critical elements, was completed by the primary surgeon (Jenna Lentz M.D.) with assistance from Augie Coates M.D., and Kusum Prasad M.D. ESTIMATED BLOOD LOSS: 150 cc DRAINS: none SPECIMENS: none COMPLICATIONS: none apparent Jenna Lentz M.D. [facility] PT EDon 06-20-2018 PT ED HNO ID: [id number] Author: Cindy Cervantes) FLETCHER Griffin Service: (none) Author Type: Registered Nurse Type: Patient Education Filed: 06/20/2018 9:13 AM Note Text: PRE OP LEARNING ASSESSMENT PROCEDURE/SURGERY: SURGERY: READINESS TO LEARN COGNITIVE ABILITY: Alert and oriented MOTIVATION TO LEARN: Interested FAMILY SUPPORT: High - Very involved in pt care PATIENT LEARNS BEST BY: Individual Instruction FACTORS AFFECTING LEARNING: None PHYSICAL LIMITATIONS AFFECTING LEARNING: None Electronically Signed By: Cindy Griffin RN In Department: [facility] SURGICAL SERVICES Normal [facility] THERAPY NTon 06-20-2018 THERAPY NT HNO ID: [id number] Author: Abi (Ot) Alan Service: Occupational Therapy Author Type: Occupational Therapist Type: Therapy (PT/OT/Speech/Resp) Filed: 06/20/2018 4:59 PM Note Text: Occupational Therapy Evaluation SERVICE DATE: 06/20/2018 SERVICE TIME: 1550 to 1640 ROOM: [address] Recommended Discharge Disposition: Home Anticipated Discharge Needs: Physical Assist at Home Physical Assist at Home for: Shopping;Transportati on;Cleaning;Laundry;M eals;Medication Management OT Recommendations to Nursing: ADL?s in chair;OOB for meals OT 6 Clicks Score: 20 Precautions/Activity Restrictions: Weight Bearing Restrictions;Shoulder Precautions;Diabetic Precaution/Activity Restriction Comments: AROM wrist elbow hand 10 reps every 4 hrs R UE Extremity With Weight Bearing Restricted: Right Upper Extremity Right Upper Extremity Weight Bearing Status: NWB Shoulder Precautions: External rotation limitation;Forward elevation limitation;No pendulums Shoulder External Rotation Limited To: 0 degrees Shoulder Forward Elevation Limited To: 0-120 degrees ASSESSMENT: Patient presents with low complexity assessment, as pt had elective sx of R TSA, with past history of DM and L TSA. Patient having undergone orthopedic surgery, will need to have vitals closely monitored for safety. Pt requires skilled OT for instruction promoting independence and safety with self cares and functional mobility/transfers, mindful of weight bearing status and any precautions associated with current surgical procedure. Patient Disposition at Start of Session: Supine in Bed;Call Waller in Reach;Family Present;SCDs Patient Disposition at End of Session: OOB in Chair;Call Waller in Reach;Family Present Tolerated Full Session Occupational Therapy Problem List: Education Deficit;Safety Deficits;Pain;Edema;I mpaired Self Care;Decreased Activity Tolerance;Decreased Skin Integrity Patient /Caregiver Goals: Care For Self Goals for Plan of Care: Able to perform HEP with: Supervision Upper Body Bathing with: Independent Upper Body Dressing with: Independent Lower Body Bathing with: Independent Lower Body Dressing with: Independent Tolerate (minutes of functional activity): 60 Functional Activity with: Supervision Rehab Potential: Good PLAN: Treatment Frequency (times per week): 2 Current admission Treatment Interventions: Education;Self Care / Home Management;Wound Care Management;Edema Management;Pain Management Plan of Care developed with: Patient;Family TREATMENT INTERVENTIONS: Therapy Diagnosis: Reduced mobility-other;Decrea sed activities of daily living (ADL) Interventions Provided: Evaluation;Therapeuti c Exercise (86331);Self Senior Care Management (02060) $ Evaluation-Low (76677) Billed Units: 1 unit Therapeutic Exercise (24477) Treatment Minutes: 10 1 unit Skilled Intervention(s): Education in Self Senior Care Management (06760) Treatment Minutes: 28 2 units Skilled Intervention(s): Instructed in post-op instructions during ADLs Education in . Pt was taught shoulder precautions and protocol per Dr Lentz. Instructed and educated patient on safety with ambulation and wearing sling. Instructed and educated patient and spouse on: - ADL technique; drop arm, patient able demonstrate with min A and min cues - Pt min A for LE dressing. Instructed and educated patient on one handed technique for LE dressing. Recommend patient perform dressing in seated position to decrease risk of LOB and falls. - IADLs: encouraged patient to avoid assisting with IADLs until cleared by surgeon, -NWBing status and NO AROM at shoulder, - instructed patient on AROM for elbow, wrist and hand to increase circulation to decrease blood clots and edema. - bathing technique and instruction provided to bathe after 5 days, Handout provided - patent not allowed to drive until okayed by MD - instructed patient to wear sling in public and in car for 6 weeks -Pt okay to doff sling and hang and dangle arm at side within home after 72 hours from sx, recommended pt to wear sling if attempting to use surgical arm within home. -instructed on technique on propping up UE on pillow for edema and pain management. - Instructed on proper don/doff technique of shoulder sling and correct positioning, patient able to demonstrated with min A and min cues - discussed ice management for pain and edema management: on 20 min and off for 40 mins. -Nursing notified pt done with instruction and is dressed Total Timed Code Treatment Minutes: 38 Total Treatment Time (minutes): 50 SUBJECTIVE: Current Hospital Course: Chart reviewed; Pt 58 yo F admitted on 06/20/18 for R TSA by Dr Lentz. Reason for Occupational Therapy Consult: safety assessment Relevant Past Medical History: DM, L TSA, depression, Patient Report: I want to go home today. Home Environment Patient Lives With: Spouse Assistance Available: time buyer Number Of Stairs To Bed/Bath: 0 Equipment Owned: Cane;Crutch(es) Prior Functional Level: Within Functional Limits OBJECTIVE: CURRENT FUNCTIONAL STATUS: Current Activities of Daily Living Assist Level Feeding Supervision Grooming Minimal Assistance Bathing Upper Body Minimal Assistance Bathing Lower Body Minimal Assistance Dressing Upper Body Minimal Assistance Dressing Lower Body Minimal Assistance Toileting Stand By Assistance Instrumental Activities of Daily Living Assist Level Meal/Beverage Prep Light Cleaning Laundry Medication Management with Strategies Functional Mobility Assist Level Rolling Supine to Sit Stand By Assistance Sit to Supine Stand By Assistance Scooting Stand By Assistance Sit to Stand Stand By Assistance Stand to Sit Stand By Assistance Bed to Chair Toilet/Commode Functional Mobility Please see discipline specific clinical documentation flowsheet for complete details for this therapy evaluation/treatment. SIGNATURE: CHACORTA Estrada/L PATIENT NAME: Carroll Harden DATE: June 20, 2018 TIME: 4:54 PM [facility] XR SHOULDER 2V AP/TRUE AP RT on 06-20-2018 XR SHOULDER 2V AP/TRUE AP RT * * *Final Report* * * DATE OF EXAM: Jun 20 2018 1:45PM EUX [id number] - XR SHOULDER 2V AP/TRUE AP RT / PROCEDURE REASON: Arthritis, shoulder * * * * Physician Interpretation * * * * RESULT: Indication: Status post right shoulder arthroplasty Comparison: X-ray right shoulder 04/26/2018 2 portable x-rays of the right shoulder are obtained. There is satisfactory position of a right shoulder prosthesis. No fracture or dislocation is identified. There is soft tissue swelling and gas in the tissues consistent with recent surgery. IMPRESSION: Satisfactory postoperative appearance of right shoulder arthroplasty. Transcribed Using Voice Recognition Transcribe Date/Time: Jun 20 2018 2:03P Dictated by: VALDEZ ANTON MD This examination was interpreted and the report reviewed and electronically signed by: VALDEZ ANTON MD on Jun 20 2018 2:04PM EST [id number] [facility] NURSING PROGon 06-09-2018 Protein mass conc HNO ID: [id number] Author: Ivana (Rn) FLETCHER Heller Service: Nursing Author Type: Registered Nurse Type: Nursing Progress Note Filed: 06/15/2018 4:39 PM Note Text: PACC Nurse Progress Note History AND Physical: PACC Visit Date: 06/07/18 Original HANDP Date: N/A ED visit Date: N/A Outside HANDP Scanned Date: N/A Labs Within Last 6 Months: CBC: Date 06/07/18- within normal limits BMP/CMP: Date 06/07/18-(serum glucose-133) TYPE AND SCREEN: Date 06/07/18-see chart Imaging Within Last 12 Months: CT Scan-right shoulder Date of test: 06/07/18 See chart Cardiac Testing: EKG in last 12 Months: 06/07/18, Comment: preliminary-(NSR, left atrial enlargement) Last Menstrual Period: LMP Date: N/A Postmenopausal >1yr: Yes, S/P Hysterectomy: Yes BMI Percentile (PEDS): N/A Risk Assessment: N/A Anesthesia Review: N/A Narrative: N/A Pre-op Considerations: Known DM Chart Check: IN PROGRESS Shirley Nunez RN June 09, 2018 11:10 AM Addendum 06/15/18 EKG IN [facility] FINAL Ivana Heller RN June 15, 2018 4:39 PM [facility] Type and SCR (30D)on 019 ABO/RH(D) Positive [facility] HOSPon 04-28-2018 HOSP Patient:Adalberto Harden MRN: Height:5' 2 (1.575 m) Weight:186 lb (84.369 kg) Outpatient Medications as of 06/20/18: calcium phosphate dibas/vit D3 (VITAMIN D, WITH CALCIUM, ORAL) docusate sodium (COLACE) 100 mg capsule aspirin, enteric coated (ECOTRIN LOW STRENGTH) 81 mg EC tablet oxyCODONE-acetaminoph en (PERCOCET) 5-325 mg tablet rizatriptan (MAXALT TOWER HOIST OPERATOR) 10 mg disintegrating tablet mupirocin (BACTROBAN) 2 % ointment naproxen sodium (ALEVE) 220 mg tablet metFORMIN (GLUCOPHAGE) 500 mg tablet amoxicillin (POLYMOX, AMOXIL) 500 mg capsule citalopram (CELEXA) 40 mg tablet nabumetone (RELAFEN) 500 mg tablet glimepiride (AMARYL) 4 mg tablet ondansetron (ZOFRAN, HYDROCHLORIDE,) 4 mg tablet levothyroxine (SYNTHROID) 125 mcg ORAL tablet atenolol 50 mg ORAL tablet CLONAZEPAM (KLONOPIN ORAL) pravastatin 20 mg ORAL tablet Admission/Clinic Administered Medications as of 06/20/18: lidocaine 10 mg/mL (1 %) 1-2 mg injection (XYLOCAINE) lactated ringers infusion ceFAZolin iv piggyback 2 g in D5W (iso-osmotic) 100 mL (ANCEF) bupivacaine liposome (PF) 1.3 % (13.3 mg/mL) 133 mg injection (EXPAREL) Problem List: Glenohumeral arthritis [M19.019] Primary osteoarthritis of left shoulder [M19.012] Status post total shoulder arthroplasty [Z96.619] Glenohumeral arthritis, right [M19.011] Status post replacement of left shoulder joint [Z96.612] Type 2 diabetes mellitus without complication, without long-term current use of insulin (HCC) [E11.9] STEPHANIE (obstructive sleep apnea) [G47.33] Mixed hyperlipidemia [E78.2] Allergies: Contrast Dye Demerol [Meperidine (Pf)] Imitrex [Sumatriptan Succinate] Influenza Vaccine Tri-Sp 09-10 Latex Betadine [Povidone-Iodine] Dhe Dilaudid [Hydromorphone (Bulk)] Date Verified: 06/20/18 Lab Values Lab Value Units Date High Low POTA* 5.1 mmol/L 06/07/2018 5.1 3.7 NATY* 40.7 % 06/07/2018 46.0 36.0 Progress Notes (RADIO CT SCAN [facility]): RT Lillian, Tech 06/07/2018 10:04 AM Sign at close encounter Radiology Service Progress Note PATIENT NAME: Carroll Harden DATE OF SERVICE: June 07, 2018 TIME: 9:54 AM PATIENT IDENTITY VERIFICATION COMPLETED USING TWO (2) METHODS: Patient confirmed name verbally and Date of . PATIENT GENDER DATA: Female. status: : No status: NO. PATIENT RELEVANT IMPLANT DATA REVIEWED: Not Applicable RADIOLOGY DEPARTMENT: CT; Exam(s) Completed: Upper extremity Rt shoulder PERIPHERAL IV DATA: Not applicable SIGNED BY: RT Lillian June 07, 2018 9:54 AM [facility] Vital Signs Date Time Vital Sign Value Performing Clinician Facility 04-29-2023 09:00-0500 Body height 154.94 cm Robert Ball Other [facility] Other 04-29-2023 09:00-0500 Body mass index (BMI) [Ratio] 33.14 kg/m2 Roebrt Ball Other [facility] Other 04-29-2023 09:00-0500 Body weight 79.56 kg Robert Ball Other [facility] Other 04-29-2023 09:00-0500 Diastolic blood pressure 89 mm[Hg] Robert Ball Other [facility] Other 04-29-2023 09:00-0500 Respiratory rate 12 /min Robert Ball Other [facility] Other 04-29-2023 09:00-0500 Systolic blood pressure 155 mm[Hg] Robert Ball Other [facility] Other 12-20-2022 13:45-0400 Body height 154.94 cm Robert Ball Other [facility] Other 12-20-2022 13:45-0400 Body mass index (BMI) [Ratio] 34.12 kg/m2 Robert Ball Other [facility] Other 12-20-2022 13:45-0400 Body weight 81.92 kg Robert Ball Other [facility] Other 08-28-2023 13:45-0400 Diastolic blood pressure 96 mm[Hg] Robert Ball Other [facility] Other 12-20-2022 13:45-0400 Respiratory rate 12 /min Robert Ball Other [facility] Other 12-20-2022 13:45-0400 Systolic blood pressure 179 mm[Hg] Robert Ball Other [facility] Other 08-04-2022 09:45-0400 Body height 154.94 cm Robert Ball Other [facility] Other 08-04-2022 09:45-0400 Body mass index (BMI) [Ratio] 33.33 kg/m2 Robert Ball Other [facility] Other 08-04-2022 09:45-0400 Body weight 80.02 kg Robert Ball Other [facility] Other 08-04-2022 09:45-0400 Diastolic blood pressure 77 mm[Hg] Robert Ball Other [facility] Other 08-04-2022 09:45-0400 Respiratory rate 12 /min Robert Ball Other [facility] Other 08-04-2022 09:45-0400 Systolic blood pressure 128 mm[Hg] Robert Ball Other [facility] Other Encounters Encounter Date Encounter Type Care Provider Facility Start: 05-02-2023 End: 05-02-2023 ambulatory Robert Ball Other [facility] Other Start: 05-02-2023 Telephone encounter [facility] Start: 04-29-2023 End: 04-29-2023 ambulatory Robert Ball Other [facility] Other Start: 04-29-2023 Office outpatient vi sit 15 minutes Robert Ball [facility] Start: 04-04-2023 End: 04-04-2023 ambulatory Robert Ball Other [facility] Other Start: 04-04-2023 Telephone encounter Robert Ball [facility] Start: 01-24-2023 End: 01-24-2023 ambulatory Robert Ball Other [facility] Other Start: 01-24-2023 Telephone encounter Robert Ball [facility] Start: 12-23-2022 End: 12-23-2022 ambulatory Robert Ball Other [facility] Other Start: 12-23-2022 Telephone encounter Robert Ball [facility] Start: 12-20-2022 End: 12-20-2022 ambulatory Robert Ball Other [facility] Other Start: 12-20-2022 Office outpatient vi sit 15 minutes Robert Ball [facility] Start: 12-17-2022 End: 12-17-2022 ambulatory Robert Ball Other [facility] Other Start: 12-17-2022 Telephone encounter Robert Ball [facility] Start: 11-08-2022 End: 11-08-2022 ambulatory Robert Ball Other [facility] Other Start: 11-08-2022 Telephone encounter Robert Ball [facility] Start: 10-22-2022 End: 10-22-2022 ambulatory Robert Ball Other [facility] Other Start: 10-22-2022 Telephone encounter Robert Ball [facility] Start: 10-13-2022 End: 10-13-2022 ambulatory Robert Ball Other [facility] Other Start: 10-13-2022 Telephone encounter [facility] Start: 09-27-2022 End: 09-27-2022 ambulatory [facility] Other [facility] Other Start: 09-27-2022 Telephone encounter [facility] Start: 08-23-2022 End: 08-24-[address] RISHI PARKER Facility:[facility] Start: 08-04-2022 End: 08-04-2022 ambulatory [facility] Other [facility] Other Start: 08-04-2022 Office outpatient vi sit 25 minutes [facility] Start: 04-03-2022 Encounter for genera l adult medical examination without abnormal findings DR ROBERT CRUZ [facility] Start: 03-30-2022 End: 03-31-[address] ROBERT CRUZ Facility:[facility] Start: 03-30-2022 End: 03-31-2022 Encounter for general adult medical examination without abnormal findings DR ROBERT CRUZ Facility:[facility] Start: 03-19-2022 End: 03-20-[address] ROBERT CRUZ Facility:[facility] Start: 02-18-2022 End: 02-19-[address] YAIR WELLS . Facility:[facility] Start: 11-27-2021 End: 11-28-[address] ROBERT CRUZ Facility:[facility] Start: 10-28-2021 End: 10-28-[address] ROBERT CRUZ Facility:[facility] Start: 09-10-2021 End: 09-11-[address] ROBERT CRUZ Facility:[facility] Start: 07-03-2018 End: 07-03-2018 Patient encounter procedure [facility] Start: 06-20-2018 End: 06-20-2018 Evaluation and management of inpatient [facility] Procedures Date Procedure Procedure Detail Performing Clinician Start: 06-07-2018 Antibody screen [facility] Payers Date Payer Category Payer Blue Cross Blue [facility] [id number] 2019 Unknown [id number] 1960 Self-pay [id number] 1959 Unknown [id number] 2.16.84 [id number] 1959 Unknown [id number] 2.16.84 [id number] 1959 Unknown [id number] 2.16.84 [id number] 1959 Unknown [id number] 2.16.84 [id number] 1959 Unknown [id number] 2.16.84 [id number] 1959 Unknown [id number] 2.16.84 [id number] Unknown [id number] 2.16.84 [id number] Social History Date Type Detail Facility Sex Assigned At [facility] Other Clinical Notes 08-04-2022 to 05-02-2023 Note Date & Type Note Facility 05-02-2023 Evaluation note Encounter Date Diagnosis Assessment Notes Apr, Intractable chronic migraine without aura and without status migrainosus (ICD-10 - G43.719) [facility] Other 01-05-2024 Evaluation note* Encounter Date Diagnosis Assessment Notes Treatment Notes Treatment Clinical Notes Apr, Intractable chronic migraine without aura and without status migrainosus (ICD-10 - G43.719) Healthy diet, consistent sleep routine and rest. Discussed triggers and modes to avoid. d/c Maxalt and begin Naratriptan. Continue Atenolol Add Amitriptyline Due to change in character, duration and intensity of headaches, recommend MRI brain Apr, Cervicalgia (ICD-10 - M54.2) Heat/ice and ROM exercises. Begin Amitriptyline Stop Tizanidine. MRI cervical spine Apr, Cervical spondylosis (ICD-10 - M47.812) Heat/ice and ROM exercises. Begin Amitriptyline Stop Tizanidine. 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 May want to cut back on Zanaflex. Nov, Dysarthria (ICD-10 - R47.1) Resolved, monitor for any recurrence. Reviewed stroke symptoms. Nov, Primary hypertension (ICD-10 - I10) This patient is instructed to consume a healthy, low-fat, low-salt diet. They are also encouraged to continue exercise to achieve/maintain a normal BMI. Patient is instructed on home BP measurements: - rest for 5 minutes w/o talking- positioned w/ feet on floor and arm supported- average best 2/3 readings w/ goal < 135/85 _update after checking at work Nov, Pain in right shoulder (ICD-10 - M25.511) Holding Relafen since doesn't seem to help. Continue ice/heat and ROM exercises Continue Tylenol as needed Avoid opiates due to work schedule and concomitant use of sedative meds Call if pain increases w/ stopping Relafen: trial of different med (Celebrex, Lodine, Mobic?) Nov, Pain in left shoulder (ICD-10 - M25.512) [facility] Other 06-30-2023 Evaluation note* Encounter Date Diagnosis Assessment Notes Treatment Notes Treatment Clinical Notes Sep, Type 2 diabetes mellitus with hyperglycemia, without long-term current use of insulin (ICD-10 - E11.65) [facility] Other 06-05-2023 Evaluation note* Encounter Date Diagnosis Assessment Notes Treatment Notes Treatment Clinical Notes Sep, Candidiasis, intertriginous (ICD-10 - B37.2) [facility] Other 04-12-2023 Evaluation note* Encounter Date Diagnosis Assessment Notes Treatment Notes Treatment Clinical Notes Jul, Type 2 diabetes mellitus with hyperglycemia, without long-term current use of insulin (ICD-10 - E11.65) This patient is following a comprehensive diabetic treatment plan. They are checking their feet daily for calluses and nonhealing ulcers. They are being seen for yearly dilated eye examinations. Goals: SBP less than 130, LDL less than 100, FBS less than 140, AC and A1C less than 7%. They are checking their BS daily, will which are reviewed at the office visit. Jul, Primary hypertension (ICD-10 - I10) This patient is instructed to consume a healthy, low-fat, low-salt diet. They are also encouraged to continue exercise to achieve/maintain a normal BMI. Jul, STEPHANIE (obstructive sle ep apnea) (ICD-10 - G47.33) This patient is aware of the benefits associated with STEPHANIE: With continued use, the patient reduces the risk for CO, CVA, HTN, cardiac dysrhythmias and sudden cardiac deaths.The patient is also aware of the association between STEPHANIE and morning headaches, daytime somnolence,fatigue and obesity, Noncompliant, stressed importance of treatment Jul, Strain of right knee , subsequent encounter (ICD-10 - S86.911D) Quad exercises, ice/heat and NSAIDs Bracing if beneficial Refer to ortho Jul, Elevated cholesterol (ICD-10 - E78.00) Diet and exercise with continued statin therapy. Jul, Thyroid nodule (ICD- 10 - E04.1) Thyroid US: TR4 - 2020, 03/2022 Surveilance thyroid US - no change since - TR 4 Jul, Gastroesophageal reflux disease with esophagitis without hemorrhage (ICD-10 - K21.00) Diet instructions: Smaller portions, avoid eating and laying flat, avoid eating or drinking prior to bedtime. Weight loss. Occasional Tums Jul, Autoimmune thyroidit is (ICD-10 - E06.3) Euthyroid, TSH yearly Jul, Other specified hypothyroidism (ICD-10 - E03.8) [facility] Other [facility] Other History general Narrative - Reported* Type Description Date Medical History Controlled type 2 di abetes mellitus with hyperglycemia, without long-term current use of insulin Medical History Gastroesophageal ref lux disease with esophagitis without hemorrhage Medical History Elevated cholesterol Medical History Obstructive sleep apnea Medical History Primary hypertension Medical History Other specified hypothyroidism Medical History Autoimmune thyroiditis Medical History Diverticulosis Medical History Recurrent major depr essive disorder, in full remission Medical History Lumbosacral spondylosis with rad iculopathy Medical History Lump of left breast Medical History Cervical spondylosis Medical History ADAN (generalized anxiety disorde r) Medical History Leukopenia Surgical History EGD Surgical History COLONOSCOPY Surgical History LAMINOTOMY AND FORAMINOTOMY,SPI NE,LUMBAR Surgical History ANTERIOR CERVICAL DISCECTOMY AN D FUSION Surgical History GET/BSO Surgical History THYROIDECTOMY 10/1990 Surgical History LEFT HEART CATHETERIZATION 2016 Hospitalization History SEE [facility] Other History general Narrative - Reported* Type Description Date Medical History Controlled type 2 di abetes mellitus with hyperglycemia, without long-term current use of insulin Medical History Gastroesophageal ref lux disease with esophagitis without hemorrhage Medical History Elevated cholesterol Medical History Obstructive sleep apnea Medical History Primary hypertension Medical History Other specified hypothyroidism Medical History Autoimmune thyroiditis Medical History Diverticulosis Medical History Recurrent major depr essive disorder, in full remission Medical History Lumbosacral spondylosis with rad iculopathy Medical History Lump of left breast Medical History Cervical spondylosis Medical History ADAN (generalized anxiety disorde r) Medical History Leukopenia Surgical History EGD Surgical History COLONOSCOPY Surgical History LAMINOTOMY AND FORAMINOTOMY,SPI NE,LUMBAR Surgical History ANTERIOR CERVICAL DISCECTOMY AN D FUSION Surgical History GET/BSO Surgical History THYROIDECTOMY 10/1990 Surgical History LEFT HEART CATHETERIZATION 2016 Surgical History Right knee arthroscopy 10/2022 Hospitalization History SEE [employer] Other Reason for referral (narrative)* Reason Evaluation of right knee pain Diagnosis 1 Strain of right knee , subsequent encounter (U40.678C) Referral Organization [facility] [place] roe Referring Provider First Name Robert Referring Provider Last Name [place] Referring Provider Specialty Internal Me yoni Referred Provider Rishi Parker Jr Referred Provider Specialty Orthopedic S urgery Referral Priority Routine [employer] Other Summary Purpose Family History No Family History Records FoundNo Family History Records FoundNo Family History Records FoundNo Family History Records Found Advance Directives No Advanced Directives Records FoundNo Advanced Directives Records FoundNo Advanced Directives Records FoundNo Advanced Directives Records Found Additional Source Comments INFORMATION SOURCE (unrecogn ized section and content) DATE CREATED AUTHOR 06/20/2018 [facility] DATE CREATED AUTHOR AUTHOR'S ORGANIZ ATION 07/04/2018 [facility] DATE CREATED AUTHOR AUTHOR'S ORGANIZ ATION 09/18/2020 [facility] DATE CREATED AUTHOR AUTHOR'S ORGANIZ ATION 08/27/2022 [facility] REASON FOR VISIT (unrecogniz ed section and content) right knee painAdditional Me dicationRefillRefillsNo InformationWants in on TuesdayTBHBPsleep study ordermamm resultsMigrainesLab order FOR RECORDS PERTAINING TO PATIENTS WHO ARE OR HAVE BEEN ENROLLED IN A CHEMICAL DEPENDENCY/SUBSTANCEABUSE PROGRAM, SOME INFORMATION MAY BE OMITTED. This clinical summary was aggregated from multiple sources. Caution should be exercised in using it in the provision of clinical care. This summary normalizes information from multiple sources, and as a consequence, information in this document may materially change the coding, format and clinical context of patient data. In addition, data may be omitted in some cases. CLINICAL DECISIONS SHOULD BE BASED ON THE PRIMARY CLINICAL RECORDS. [employer] provides no warranty or guarantee of the accuracy or completeness of information in this document.
--- NOTE | 2023-05-03 08:17 | MR_ITS ---
The [address] [address] Patient Name: CARROLL HARDEN MRN: [id number] date: 1960 Sex: F Assigned Patient Location: LAB Current Patient Location: LAB Accession/Order Number: [id number] Exam Date: 05/03/2023 08:39 Report Date: 05/03/2023 11:10 At the request of: MICA VILLASENOR Procedure: MR cervical spine wo/w con EXAM: MR scan cervical spine with and without contrast TECHNIQUE: Sagittal T1, XIN T2, STIR, axial gradient echo, and T2-weighted images through the cervical spine without contrast, and post contrast sagittal and axial T1 images performed. COMPARISON: MR scan performed 10/20/[address] scan performed 05/05/2020. HISTORY: Severe headaches, neck pain. FINDINGS: Ferromagnetic artifact with interbody spacer, artificial disc at the C6-C7 level. Prior fusion of C5 and C6 vertebral bodies. Minimal disc space narrowing C4-C5. The vertebral bodies and disc spaces are otherwise normal in height and alignment. Marrow signal is normal. Distortion of the anatomy due to ferromagnetic artifact at C6-C7 obscuring the central spinal canal and the neural foramina. C1-C2: Normal. C2-C3: Facet arthropathy to the left of midline. No evidence of stenosis. C3-C4: No evidence of stenosis. C4-C5: Disc bulge, right foraminal narrowing due to disc protrusion. This is best seen axial image 13 series 9001. C5-C6: No evidence of central spinal canal stenosis. Possible left foraminal narrowing. C6-C7: Anatomy is partially obscured by ferromagnetic artifact. C7-T1: Normal. The vertebral bodies and disc spaces are otherwise normal in appearance. The paraspinal soft tissues are otherwise normal. MR/MR cervical spine wo/w con IMPRESSION: 1. Left facet arthropathy and foraminal narrowing C2-C3. 2. Right foraminal disc protrusion with right foraminal stenosis C4-C5. 3. No evidence of central spinal canal stenosis. Electronically authenticated by: Lamin HEBERT Date: 05/03/2023 11:10
--- NOTE | 2023-05-03 08:18 | MR_ITS ---
The [address] [address] Patient Name: CARROLL HARDEN MRN: [id number] date: 1960 Sex: F Assigned Patient Location: LAB Current Patient Location: LAB Accession/Order Number: [id number] Exam Date: 05/03/2023 08:39 Report Date: 05/03/2023 13:32 At the request of: MICA VILLASENOR Procedure: MR head/brain wo con MRI brain without contrast, 05/03/2023. HISTORY: Chronic migraine headache. COMPARISON: MRI brain without contrast, 12/17/2022. TECHNIQUE: Multiplanar, multisequence MRI imaging of the brain without contrast. FINDINGS: The paranasal sinuses are clear. Mastoid air cells are clear. Nasopharynx normal. Bin Operator spaces are normal. Prior cataract surgery. Mild generalized brain atrophy stable. No hydrocephalus. No extra-axial fluid collections. There is no mass effect. No shift of midline structures. No significant signal abnormalities in the brain. Diffusion images are normal. No acute infarction. The T2 gradient images show no hemorrhagic lesions. No masses. MR/MR head/brain wo con IMPRESSION: 1. Stable MRI of the brain. No acute findings. 2. Mild generalized brain atrophy stable. 3. No hydrocephalus. No acute infarction. No masses. Electronically authenticated by: ADAM MENON Date: 05/03/2023 13:32
[2023-05-03 08:22] LABS: Estimated GFR (African America 56 (>=60); Estimated GFR (Non-African Ame 46 (>=60)
== END 2023-05-03 08:05 | disposition home or self-care (01) ==
LOC: LAB 08:05
PROVIDERS: PCP Internal Medicine; Visit Provider Internal Medicine
DX: M54.2 Cervicalgia (principal); M47.812 Spondylosis without myelopathy or radiculopathy, cervical region; G43.719 Chronic migraine without aura, intractable, without status migrainosus
CPT/HCPCS: 36415; 70551; 72156; 82565; A9575

== ENCOUNTER 2023-05-18 08:18 | Outpatient (OUT) | payer BC, SELFPAY ==
--- OUTSIDE RECORDS SUMMARY | 2023-05-18 08:21 | XMS_ITS | CCD ---
Author Name Unknown Address [address] [place] [address] Organization [facility] Care Team Providers Care General Contractor Name Role Phone JENNA LENTZ Admitting Unavailable [...] Unavailable BALL, DR NINO Primary Care Unavailable YESSENIA WATSON Attending Unavailable WALTER, YESSENIA Consulting Unavailable YESSENIA WATSON Admitting Unavailable PRISCILLA ., DR MAZARIEGOS Attending Unavailable HOTerrence ., DR MAZARIEGOS Consulting Unavailable PRISCILLA ., DR MAZARIEGOS Admitting Unavailable HAMILTON, DR NINO Primary Care Unavailable Allergies Allergy Classification Reported Allergen(s) Allergy Type Date of Onset Reaction(s) Facility (2 sources) Contrast media; Translations: [CONTRAST DYE] Propensity to adverse reactions to drug (disorder) 09-30-19 11 [facility] Other [place] Repository (2 sources) HYDROmorphone; Translations: [HYDROMORPHONE (BULK)] Drug Allergy 08-17-19 17 [facility] Repository (19 sources) Latex; Translations: [LATEX] Propensity to adverse reactions to drug (disorder) 09-30-19 11 Unknown [facility] Repository (2 sources) Meperidine; Translations: [MEPERIDINE (PF)] Drug Allergy 09-30-19 11 [facility] Repository (2 sources) Povidone-Iodine; Translations: [POVIDONE-IODINE] Drug Allergy 10-21-19 17 [facility] Repository (2 sources) SUMAtriptan; Translations: [SUMATRIPTAN SUCCINATE] Drug Allergy 09-30-19 11 [facility] Repository (2 sources) INFLUENZA VACCINE TRI-SP 09-10; Translations: [INFLUENZA VACCINE TRI-SP 09-10] Propensity to adverse reactions to drug (disorder) 09-30-19 11 [facility] Repository (3 sources) DHE; Translations: [DHE] Propensity to adverse reactions to drug (disorder) 10-24-19 13 [facility] Repository (16 sources) HYDROmorphone Drug Allergy Unknown Retidoc Other (17 sources) Iodine; Translations: [iodine] Drug Allergy 10-24-19 13 Unknown [facility] Repository (16 sources) Meperidine Drug Allergy Unknown Retidoc Other (16 sources) SUMAtriptan Drug Allergy Unknown Retidoc Other (16 sources) Fluad Drug allergy Unknown Retidoc Other (16 sources) DHEA Drug allergy Unknown Retidoc Other (1 source) HYDROmorphone Drug Allergy 10-24-19 13 [facility] Repository (1 source) Meperidine Drug Allergy 10-24-19 13 [facility] Repository (1 source) Plasmin Drug Allergy 10-24-19 13 [facility] Repository (11 sources) influenza A virus (H1N1) antigen / influenza A virus (H3N2) antigen / influenza B virus antigen Drug Allergy 11-21-19 14 Comment:FLU VACCINE Retidoc Other (11 sources) Contraindication to Flu Injection Propensity to adverse reactions 03-07-20 Comment:advers e rxn/side effects Retidoc Other (3 sources) patient allergy list reviewed by nurse or physicia Propensity to adverse reactions 12-22-19 Comment:Done Retidoc Other Medications Current Medications Medication Drug Class(es) Dates Sig (Normalized) Sig (Original) amitriptyline hydrochloride 10 mg oral tablet (6 sources) Tricyclic Antidepressant Start: 04-29-2023 take 1-2 tablets by mouth once at bedtime Amitriptyline HCl 10 MG 1 - 2 tablets at bedtime Orally q HS for 30 days Apr, Active atenolol 50 mg oral tablet (16 sources) beta-Adrenergic Maria Esther Start: 08-04-2022 take 1 tablet by mouth every twenty-four hours Atenolol 50 MG 1 tablet Orally Once a day Jul, Active citalopram 40 mg oral tablet (13 sources) Serotonin Reuptake Inhibitor Start: 10-22-2022 take 1 tablet by mouth every twenty-four hours Citalopram Hydrobromide 40 MG 1 tablet at bedtime Orally Once a day for 90 days Sep, Active clonazePAM 0.5 mg oral tablet (14 sources) Benzodiazepine Start: 12-28-2022 take 3 tablets by mouth once daily at bedtime clonazePAM 0.5 MG TAKE 3 TABLETS BY MOUTH AT BEDTIME Orally Once a day for 30 days Dec, Active Start: 09-30-2022 take 3 tablets by mo [facility] at bedtime clonazePAM 0.5 MG TAKE 3 TABLETS BY MOUTH AT BEDTIME for 30 days Sep, Active fluconazole 100 mg oral tablet (15 sources) Azole Antifungal Start: 09-14-2022 take 1 tablet by mouth every twenty-four hours Fluconazole 100 MG 1 tablet Orally daily for 7 days August, Active glimepiride 4 mg oral tablet (16 sources) Sulfonylurea take 1 tablet by mouth every twenty-four hours Glimepiride 4 MG 1 tablet with breakfast or the first main meal of the day Orally Once a day for 90 days Active levothyroxine sodium 0.125 mg oral tablet (16 sources) l-Thyroxine Start: 07-26-2022 take 1 tablet [...] Active metFORMIN hydrochloride 500 mg oral tablet (14 sources) Biguanide Start: 10-13-2022 take 1 tablet by mouth twice daily metFORMIN HCl 500 MG 1 tablet with a meal Orally two times daily for 90 days Sep, Active naratriptan 2.5 mg oral tablet (6 sources) Serotonin-1b and Serotonin-1d Receptor Agonist Start: 04-29-2023 Naratriptan HCl 2.5 MG 1 tablet Orally Once a day PRN headache, may repeat after 2 hours for 30 days Apr, Active olmesartan medoxomil 20 mg oral tablet (9 sources) Angiotensin 2 Receptor Maria Esther Start: 12-23-2022 take 1 tablet by mouth every twenty-four hours Olmesartan Medoxomil 20 MG 1 tablet Orally Once a day for 30 days Nov, Active pravastatin sodium 20 mg oral tablet (16 sources) HMG-CoA Reductase Inhibitor Start: 08-04-2022 take 1 tablet by mouth every twenty-four hours Pravastatin Sodium 20 MG 1 tablet Orally Once a day for 30 days Jul, Active predniSONE 20 mg oral tablet (2 sources) Start: 05-09-2023 predniSONE 20 MG 1 tablet Orally tid w/ food x 1 day then bid w/ food x 2 days then qd w/ food x 2 days for 5 days Apr, Active rizatriptan 10 mg disintegrating oral tablet (6 sources) Serotonin-1b and Serotonin-1d Receptor Agonist Start: 11-04-2022 take 1 tablet by mouth every two hours as needed for headache Maxalt-GREASER HELPER 10 MG 1 tablet Orally PRN headache, [...] (Original) cloNIDine hydrochloride 0.1 mg oral tablet (16 sources) Central alpha-2 Adrenergic Agonist Start: 08-04-2022 take 1 tablet by mouth twice daily as needed cloNIDine HCl 0.1 MG 1 tablet Orally twice daily Jul, Not-Taking/PRN Problems Active Problems Problem Classification Problem Date Documented Date Episodic/Chronic Anxiety disorders (16 sources) Generalized anxiety disorder; Translations: [Generalized anxiety disorder] Chronic Complications of surgical procedures or medical care (1 source) Postprocedural hypothyroidism; Translations: [POSTPROCEDURAL HYPOTHYROIDISM] Onset: 2 Chronic Diabetes mellitus with complications (20 sources) Type 2 diabetes mellitus; Translations: [Type 2 diabetes mellitus with hyperglycemia] Onset: 2 Chronic Diseases of white blood cells (16 sources) Leukopenia; Translations: [Decreased white blood cell count, unspecified] Chronic Disorders of lipid metabolism (17 sources) Hypercholesterolemia; Translations: [Pure hypercholesterolemia, unspecified] Chronic Diverticulosis and diverticulitis (16 sources) Diverticular disease of colon; Translations: [Diverticulosis of intestine, part unspecified, without perforation or abscess without bleeding] Chronic E Codes: Adverse effects of medical drugs (1 source) Adverse effect of other parasympatholytics [anticholinergics and antimuscarinics] and spasmolytics, subsequent encounter Episodic Esophageal disorders (16 sources) Gastro-esophageal reflux disease with esophagitis; Translations: [Gastroesophageal reflux disease with esophagitis without hemorrhage] Chronic Essential hypertension (20 sources) Essential hypertension; Translations: [Essential (primary) hypertension] Onset: 2 Chronic Headache; including migraine (10 sources) Chronic intractable migraine without aura; Translations: [...] KNEE INIT] Onset: 3 Episodic Mood disorders (16 sources) Recurrent major depression in full remission; Translations: [Major depressive disorder, recurrent, in full remission] Chronic Mycoses (1 source) Candidiasis of skin and nail Episodic Nonmalignant breast conditions (16 sources) Lump in left breast; Translations: [Unspecified [...] Episodic Other nutritional; endocrine; and metabolic disorders (8 sources) Body mass index 30+ - obesity; Translations: [Body mass index (BMI) 33.0-33.9, adult] Chronic Other nutritional; endocrine; and metabolic disorders (8 sources) Obesity caused by energy imbalance; Translations: [Other obesity due to excess calories] Chronic Residual codes; unclassified (16 sources) Obstructive sleep apnea syndrome; Translations: [Obstructive sleep apnea (adult) (pediatric)] Chronic Residual codes; unclassified (1 source) Obstructive sleep apnea (adult) (pediatric) Chronic Spondylosis; intervertebral disc disorders; other back problems (20 sources) Lumbosacral spondylosis with radiculopathy; Translations: [Other spondylosis with radiculopathy, lumbosacral region] Chronic Spondylosis; intervertebral disc disorders; other back problems (2 sources) Cervicalgia Episodic Sprains and strains (1 source) [...] BERNY CANO Date: 2022-08-24 07:19 Normal [facility] CBC AUTO DIFFon 03-30-2022 BASO # 0.0 103/ul Normal 0.0-0.1 [facility] Comment on above: Performed By: #### C BC #### [facility] [address] [address] [address] Rc Foster Basophils/100 WBC (Bld) 0.4 % Normal 0.2-2.0 [facility] Comment on above: Performed By: #### C BC #### [facility] [address] [place] [address] Dr. Rc Foster EO # 0.3 103/ul Normal 0.0-0.7 [facility] Comment on above: Performed By: #### C BC #### [facility] [address] [place] [address] Dr. Rc Foster Eosinophils/100 WBC (Bld) 4.9 % Normal 0.9-7.0 [facility] Comment on above: Performed By: #### C BC #### [facility] [address] [place] [address] Dr. Rc Foster Erythrocyte distribution width (RBC) [Ratio] 12.2 % Normal 11.0-15.0 [facility] Comment on above: Performed By: #### C BC #### [facility] [address] [place] [address] Dr. Rc Foster Hematocrit (Bld) [Volume fraction] 39.8 % Normal 36.0-48.0 [facility] Comment on above: Performed By: #### C BC #### [facility] [address] [place] [address] Dr. Rc Fostre Hemoglobin (Bld) [Mass/Vol] 13.1 g/dL Normal 12.0-16.0 [facility] Comment on above: Performed By: #### C BC #### [facility] [address] [place] [address] Dr. Rc Foster IG # 0.02 10e3/ul Normal 0.00-0.03 [facility] Comment on above: Performed By: #### C BC #### [facility] [address] [place] [address] Dr. Rc Foster IG % 0.4 % Normal 0.0-0.5 [facility] Comment on above: Performed By: #### C BC #### [facility] [address] [place] [address] Dr. Rc Foster LYMPH # 2.1 103/ul Normal 1.2-3.8 [facility] Comment on above: Performed By: #### C BC #### [facility] [address] [place] [address] Dr. Rc Foster Lymphocytes/100 WBC (Bld) 37.1 % Normal 20.5-60.0 [facility] Comment on above: Performed By: #### C BC #### [facility] [address] [place] [address] Dr. Rc Foster MANUAL DIFF REQ NO Normal [facility] Comment on above: Performed By: #### C BC #### [facility] [address] [place] [address] Dr. Rc Foster MCH (RBC) [Entitic mass] 28.7 pg Normal 26.7-34.0 [facility] Comment on above: Performed By: #### C BC #### [facility] [address] [place] [address] Dr. Rc Foster MCHC (RBC) [Mass/Vol] 32.9 g/dL Normal 29.9-35.2 [facility] Comment on above: Performed By: #### C BC #### [facility] [address] [place] [address] Dr. Rc Foster MCV (RBC) [Entitic vol] 87.1 fL Normal 81.0-99.0 [facility] Comment on above: Performed By: #### C BC #### [facility] [address] [place] [address] Dr. Rc Foster MONO # 0.4 103/ul Normal 0.3-0.8 [facility] Comment on above: Performed By: #### C BC #### [facility] [address] [place] [address] Dr. Rc Foster Monocytes/100 WBC (Bld) 6.7 % Normal 1.7-12.0 [facility] Comment on above: Performed By: #### C BC #### [facility] [address] [place] [address] Dr. Rc Foster NEUT # 2.9 103/ul Normal 1.4-6.5 [facility] Comment on above: Performed By: #### C BC #### [facility] [address] [place], [place] [id number] Dr. Rc Foster Neutrophils/100 WBC (Bld) 50.5 % Normal 43.0-75.0 [facility] Comment on above: Performed By: #### C BC #### [facility] [address] [place] [address] Dr. Rc Foster Platelet mean volume (Bld) [Entitic vol] 9.7 fL Normal 9.5-13.5 [facility] Comment on above: Performed By: #### C BC #### [facility] [address] [place] [address] Dr. Rc Foster PLT 189 103/ul Normal 150-450 [facility] Comment on above: Performed By: #### C BC #### [facility] [address] [place] [address] Dr. Rc Foster RBC 4.57 106/ul Normal 4.20-5.40 [facility] Comment on above: Performed By: #### C BC #### [facility] [address] [place] [address] Dr. Rc Foster WBC 5.7 103/ul Normal 4.0-11.0 [facility] Comment on above: Performed By: #### C BC #### [facility] [address] [place] [address] Dr. Rc Foster GLYCOHEMOGLOBIN A1Con 2021 ADA RECOMMENDATION SEE BELOW Normal [facility] Comment on above: Result Comment: ADA RECOMMENDED LIMIT 4.0 - 6.0 ADA THERAPEUTIC TARGET < 7.0 ACTION SUGGESTED > 7.0 Performed By: #### A 1C #### [facility] [address] [place] [address] Dr. Rc Foster Glucose [Mass/Vol] 143 mg/dL Normal [facility] Comment on above: Performed By: #### A 1C #### [facility] [address] [place] [address] Dr. Rc Foster HbA1c (Bld) [Mass fraction] 6.6 % Critically high 4.5-6.2 [facility] Comment on above: Performed By: #### A 1C #### [facility] [address] [place], [place] [address] Dr. Rc Foster LIPID PROFILEon 03-30-2022 CHOL-HDL RATIO NORM SEE BELOW Normal [facility] Comment on above: Result Comment: 3.3 - 4.4 LOW RISK 4.4 - 7.1 AVERAGE RISK 7.1 - 11.0 MODERATE RISK >11.0 HIGH RISK Performed By: #### T SH, CMP, LIPID ####[facility] [address] [place], [place] [address]Gz. Rc Foster Cholesterol [Mass/Vol] 184 mg/dL Normal <=200 [facility] Comment on above: Performed By: #### T SH, CMP, LIPID ####[facility] [address] [place], [place] [address]Zk. Rc Foster Cholesterol in HDL [Mass/Vol] 42 mg/dL Normal 40-60 [facility] Comment on above: Performed By: #### T SH, CMP, LIPID ####[facility] [address] [id number] Foster Cholesterol in LDL [Mass/Vol] 87.0 mg/dL Normal [facility] Comment on above: Performed By: #### T SH, CMP, LIPID ####[facility] [address] [place], [place] [address]Ln. Rc Foster Cholesterol.total/Chol esterol in HDL [Mass ratio] 4.4 {ratio} Normal [facility] Comment on above: Performed By: #### T SH, CMP, LIPID ####[facility] [address] [place], [place] [address]Br. Rc Foster HDL NORMAL > or = 60 mg/dl - LO W CARDIOVASCULAR RISK <40 mg/dl - HIGH CARDIOVASCULAR RISK Normal [facility] Comment on above: Performed By: #### T SH, CMP, LIPID ####[facility] [address] [id number]. Rc Foster LDL CALC NORMAL SEE BELOW Normal [facility] Comment on above: Result Comment: <100 mg/dl OPTIMAL 100 - 129 mg/dl NEAR OR ABOVE OPTIMAL 130 - 159 mg/dl BORDERLINE HIGH 160 - 189 mg/dl HIGH >190 mg/dl VERY HIGH Performed By: #### T SH, CMP, LIPID ####[facility] [address] [id number]. Rc Foster Triglyceride [Mass/Vol] 275 mg/dL Critically high <=150 [facility] Comment on above: Performed By: #### T SH, CMP, LIPID ####[facility] [address] [address]Dr. Rc Foster VLDL CALC 55.0 mg/dL Normal [facility] Comment on above: Performed By: #### T SH, CMP, LIPID ####[facility] [address] [address]Dr. Rc Foster PROF 14(COMP METB)on 022 Albumin [Mass/Vol] 4.0 g/dL Normal 3.4-5.0 [facility] Comment on above: Performed By: #### T SH, CMP, LIPID ####[facility] [address] [address]Dr. Rc Foster Albumin/Globulin [Mass ratio] 1.1 {ratio} Normal [facility] Comment on above: Performed By: #### T SH, CMP, LIPID ####[facility] [address] [address]Dr. Rc Foster ALP [Catalytic activity/Vol] 71 U/L Normal 46-116 [facility] Comment on above: Performed By: #### T SH, CMP, LIPID ####[facility] [address] [address]Dr. Rc Foster ALT [Catalytic activity/Vol] 29 U/L Normal 14-59 [facility] Comment on above: Performed By: #### T SH, CMP, LIPID ####[facility] [address] [address]Dr. Rc Foster Anion gap [Moles/Vol] 13.2 mmol/L Normal [facility] Comment on above: Performed By: #### T SH, CMP, LIPID ####[facility] [address] [address]Dr. Rc Foster AST [Catalytic activity/Vol] 17 U/L Normal 15-37 [facility] Comment on above: Performed By: #### T SH, CMP, LIPID ####[facility] [address] [address]Dr. Rc Foster Bilirubin [Mass/Vol] 0.6 mg/dL Normal 0.2-1.0 [facility] Comment on above: Performed By: #### T SH, CMP, LIPID ####[facility] [address] [address]Dr. Rc Foster Calcium [Mass/Vol] 9.0 mg/dL Normal 8.5-10.1 [facility] Comment on above: Performed By: #### T SH, CMP, LIPID ####[facility] [address] [address]Dr. Rc Foster Chloride [Moles/Vol] 102 mmol/L Normal 98-107 [facility] Comment on above: Performed By: #### T SH, CMP, LIPID ####[facility] [address] [address]Dr. Rc Foster CO2 [Moles/Vol] 27.3 mmol/L Normal 21.0-32.0 [facility] Comment on above: Performed By: #### T SH, CMP, LIPID ####[facility] [address] [address]Dr. Rc Foster Creatinine [Mass/Vol] 1.00 mg/dL Normal 0.55-1.02 [facility] Comment on above: Performed By: #### T SH, CMP, LIPID ####[facility] [address] [address]Dr. Rc Foster EGFR-AF MALAYSIAN >60 Normal >=60 [facility] Comment on above: Performed By: #### T SH, CMP, LIPID ####[facility] [address] [address]Dr. Rc Foster EGFR-NON AF MALAYSIAN 56 mL/min/1.73m2 Critically low >=60 [facility] Comment on above: Performed By: #### T SH, CMP, LIPID ####[facility] [address] [id number]. Rc Foster Globulin (S) [Mass/Vol] 3.5 g/dL Normal [facility] Comment on above: Performed By: #### T SH, CMP, LIPID ####[facility] [address] [id number]. Rc Foster Glucose [Mass/Vol] 159 mg/dL Critically high 74-[address] [facility] Comment on above: Performed By: #### T SH, CMP, LIPID ####[facility] [address] [id number]. cR Foster Potassium [Moles/Vol] 4.5 mmol/L Normal 3.5-5.1 [facility] Comment on above: Performed By: #### T SH, CMP, LIPID ####[facility] [address] [address]Dr. Rc Foster Protein [Mass/Vol] 7.5 g/dL Normal 6.4-8.2 [facility] Comment on above: Performed By: #### T SH, CMP, LIPID ####[facility] [address] [address]Dr. Rc Foster Sodium [Moles/Vol] 138 mmol/L Normal 136-145 [facility] Comment on above: Performed By: #### T SH, CMP, LIPID ####[facility] [address] [address]Dr. Rc Foster Urea nitrogen [Mass/Vol] 23.0 mg/dL Critically high 7.0-18.0 [facility] Comment on above: Performed By: #### T SH, CMP, LIPID ####[facility] [address] [address]Dr. Rc Foster Urea nitrogen/Creatinine [Mass ratio] 23.0 mg/mg Normal [facility] Comment on above: Performed By: #### T SH, CMP, LIPID ####[facility] [address] [address]Dr. Rc Foster TSHon 03-30-2022 TSH 2.807 uIU/mL Normal 0.358-3.740 [facility] Comment on above: Performed By: #### T SH, CMP, LIPID ####[facility] [address] [place], [place] [address]UcRodger ESQUEDA THYROIDon 03-30-2022 US THYROID EXAMINATION: US THYROID [...] by: BERNY CANO Date: 2022-03-30 11:03 Normal [facility] MG MAMM SCREEN 3D LEX CADon 03-19-2022 MG MAMM SCREEN 3D LEX CAD Patient: CARROLL HARDEN Exam Date: 03/19/2022 : 1960 Gender:F Ordering : DR ROBERT CRUZ D.O. Admission #: [id number] Family : Order #: [id number] CLICK HERE TO VIEW EXAM RADIOLOGY REPORT [...] No Treatments None Family Cancers None LOCATION: [facility] BREAST COMPOSITION: Scattered areas fibroglandular density. FINDINGS: [...] M.D. on 03/23/2022 at 11:59 Normal [facility] CBC AUTO DIFFon 11-27-2021 BASO # 0.0 103/ul Normal 0.0-0.1 [facility] Comment on above: Performed By: #### C BC #### [facility] [address] [place] [address] Dr. Rc Foster Basophils/100 WBC (Bld) 0.7 % Normal 0.2-2.0 [facility] Comment on above: Performed By: #### C BC #### [facility] [address] [place] [address] Dr. Rc Foster EO # 0.6 103/ul Normal 0.0-0.7 [facility] Comment on above: Performed By: #### C BC #### [facility] [address] [place] [address] Dr. Rc Foster Eosinophils/100 WBC (Bld) 10.3 % Critically high 0.9-7.0 [facility] Comment on above: Performed By: #### C BC #### [facility] [address] [place] [address] Dr. Rc Foster Erythrocyte distribution width (RBC) [Ratio] 12.4 % Normal 11.0-15.0 [facility] Comment on above: Performed By: #### C BC #### [facility] [address] [place] [place] [address] Dr. Rc Foster Hematocrit (Bld) [Volume fraction] 41.2 % Normal 36.0-48.0 [facility] Comment on above: Performed By: #### C BC #### [facility] [address] [place] [address] Dr. Rc Foster Hemoglobin (Bld) [Mass/Vol] 13.4 g/dL Normal 12.0-16.0 [facility] Comment on above: Performed By: #### C BC #### [facility] [address] [place] [address] Dr. Rc Foster IG # 0.01 10e3/ul Normal 0.00-0.03 [facility] Comment on above: Performed By: #### C BC #### [facility] [address] [place] [address] Dr. Rc Foster IG % 0.2 % Normal 0.0-0.5 [facility] Comment on above: Performed By: #### C BC #### [facility] [address] [place] [address] Dr. Rc Foster LYMPH # 2.3 103/ul Normal 1.2-3.8 [facility] Comment on above: Performed By: #### C BC #### [facility] [address] [place] [address] Dr. Rc Foster Lymphocytes/100 WBC (Bld) 40.6 % Normal 20.5-60.0 [facility] Comment on above: Performed By: #### C BC #### [facility] [address] [place] [address] Dr. Rc Foster MANUAL DIFF REQ NO Normal [facility] Comment on above: Performed By: #### C BC #### [facility] [address] [place] [address] Dr. Rc Foster MCH (RBC) [Entitic mass] 28.8 pg Normal 26.7-34.0 [facility] Comment on above: Performed By: #### C BC #### [facility] [address] [place] [address] Dr. Rc Foster MCHC (RBC) [Mass/Vol] 32.5 g/dL Normal 29.9-35.2 [facility] Comment on above: Performed By: #### C BC #### [facility] [address] [place] [address] Dr. Rc Foster MCV (RBC) [Entitic vol] 88.6 fL Normal 81.0-99.0 [facility] Comment on above: Performed By: #### C BC #### [facility] [address] [place] [address] Dr. Rc Foster MONO # 0.4 103/ul Normal 0.3-0.8 [facility] Comment on above: Performed By: #### C BC #### [facility] [address] [place] [address] Dr. Rc Foster Monocytes/100 WBC (Bld) 7.6 % Normal 1.7-12.0 [facility] Comment on above: Performed By: #### C BC #### [facility] [address] [place] [address] Dr. Rc Foster NEUT # 2.3 103/ul Normal 1.4-6.5 [facility] Comment on above: Performed By: #### C BC #### [facility] [address] [place] [address] Dr. Rc Foster Neutrophils/100 WBC (Bld) 40.6 % Critically low 43.0-75.0 [facility] Comment on above: Performed By: #### C BC #### [facility] [address] [place] [address] Dr. Rc Foster Platelet mean volume (Bld) [Entitic vol] 9.6 fL Normal 9.5-13.5 [facility] Comment on above: Performed By: #### C BC #### [facility] [address] [place] [address] Dr. Rc Foster PLT 194 103/ul Normal 150-450 [facility] Comment on above: Performed By: #### C BC #### [facility] [address] [place] [address] Dr. Rc Foster RBC 4.65 106/ul Normal 4.20-5.40 [facility] Comment on above: Performed By: #### C BC #### [facility] [address] [place] [address] Dr. Rc Foster WBC 5.5 103/ul Normal 4.0-11.0 [facility] Comment on above: Performed By: #### C BC #### [facility] [address] [place] [address] Dr. Rc Foster GLYCOHEMOGLOBIN A1Con 2021 ADA RECOMMENDATION SEE BELOW Normal [facility] Comment on above: Result Comment: ADA RECOMMENDED LIMIT 4.0 - 6.0 ADA THERAPEUTIC TARGET < 7.0 ACTION SUGGESTED > 7.0 Performed By: #### A 1C #### [facility] [address] [place] [address] Dr. Rc Foster Glucose [Mass/Vol] 131 mg/dL Normal [facility] Comment on above: Performed By: #### A 1C #### [facility] [address] [place] [address] Dr. Rc Foster HbA1c (Bld) [Mass fraction] 6.2 % Normal 4.5-6.2 [facility] Comment on above: Performed By: #### A 1C #### [facility] [address] [place] [address] Dr. Rc Foster PROF CHEM 8 (BAS METB)on Anion gap [Moles/Vol] 15.2 mmol/L Normal [facility] Comment on above: Performed By: #### T MARY JANE, BMP #### [facility] [address] [place] [address] Dr. Rc Foster Calcium [Mass/Vol] 8.5 mg/dL Normal 8.5-10.1 [facility] Comment on above: Performed By: #### T MARY JANE, BMP #### [facility] [address] [place] [address] Dr. Rc Foster Chloride [Moles/Vol] 100 mmol/L Normal 98-107 [facility] Comment on above: Performed By: #### T MARY JANE, BMP #### [facility] [address] [place] [address] Dr. Rc Foster CO2 [Moles/Vol] 26.6 mmol/L Normal 21.0-32.0 [facility] Comment on above: Performed By: #### T SH, BMP #### [facility] [address] [address] [address] Rc Foster Creatinine [Mass/Vol] 1.15 mg/dL Critically high 0.55-1.02 [facility] Comment on above: Performed By: #### T SH, BMP #### [facility] [address] [address] [address] Rc Foster EGFR-AF MALAYSIAN 58 mL/min/1.73m2 Critically low >=60 [facility] Comment on above: Performed By: #### T SH, BMP #### [facility] [address] [place] [address] Dr. Rc Foster EGFR-NON AF MALAYSIAN 48 mL/min/1.73m2 Critically low >=60 [facility] Comment on above: Performed By: #### T SH, BMP #### [facility] [address] [place] [address] Dr. Rc Foster Glucose [Mass/Vol] 211 mg/dL Critically high 74-[address] [facility] Comment on above: Performed By: #### T SH, BMP #### [facility] [address] [place] [address] Dr. Rc Foster Potassium [Moles/Vol] 4.8 mmol/L Normal 3.5-5.1 [facility] Comment on above: Performed By: #### T SH, BMP #### [facility] [address] [place] [address] Dr. Rc Foster Sodium [Moles/Vol] 137 mmol/L Normal 136-145 [facility] Comment on above: Performed By: #### T SH, BMP #### [facility] [address] [place] [address] Dr. Rc Foster Urea nitrogen [Mass/Vol] 33.0 mg/dL Critically high 7.0-18.0 [facility] Comment on above: Performed By: #### T SH, BMP #### [facility] [address] [address] [address] Rc Foster Urea nitrogen/Creatinine [Mass ratio] 28.7 mg/mg Normal [facility] Comment on above: Performed By: #### T MARY JANE, BMP #### [facility] [address] [id number] [address] Rc Foster TSHon 11-27-2021 TSH 0.744 uIU/mL Normal 0.358-3.740 [facility] Comment on above: Performed By: #### T MARY JANE, BMP #### [facility] [address] [address] [address] Rc Foster SYMPTOMATIC COVID-19 ANTIGEN on 10-28-2021 EUA Statement SEE BELOW Normal [facility] Comment on above: Result Comment: This test [...] is revoked sooner. Performed By: #### C VDAGS ####[facility] [address] [id number]. Rc Foster SARS-CoV-2 (COVID-19) RNA YARED+probe Ql (Unsp spec) Negative Normal NEGATIVE [facility] Comment on above: Performed By: #### C VDAGS ####[facility] [id number] [id number]. Rc Foster GLYCOHEMOGLOBIN A1Con 2021 ADA RECOMMENDATION SEE BELOW Normal [facility] Comment on above: Result Comment: ADA RECOMMENDED LIMIT 4.0 - 6.0 ADA THERAPEUTIC TARGET < 7.0 ACTION SUGGESTED > 7.0 Performed By: #### A 1C #### [facility] [address] [address] [address] Rc Foster Glucose [Mass/Vol] 128 mg/dL Normal [facility] Comment on above: Performed By: #### A 1C #### [facility] [address] [address] [address] Rc Foster HbA1c (Bld) [Mass fraction] 6.1 % Normal 4.5-6.2 [facility] Comment on above: Performed By: #### A 1C #### [facility] [address] [address] [address] Rc Foster Discharge CCD Assessmenton 0 09-06-2020 Discharge CCD Assessment [facility] Patient: CARROLL HARDEN [address] [place] [address] MR#: [id number] DISCHARGE CCD ASSESSMENT : 58 Service Date: 09/06/20 1018 Discharge CCD Assessment Assessment Patient discharged home to continue exercises, pain medication, and wound care Electronically Signed eSign Date and Time Melyssa Flores 09/06/20 1019 Tera Hernandez MD Normal [facility] GLUCOSE METERon 09-06-2020 Glucose [Mass/Vol] 126 mg/dL High 70-99 [facility] Comment on above: Order Comment: CONSE RVATION Result Comment: Fast ing GLUCOSE reference range has been updated per (ADA) [place] [employer]'s recommendation. 07/18/2018 Performed By: #### L 500.64714 ####Test performed at: [place] [address] Glucose [Mass/Vol] 205 mg/dL High 70-99 [facility] Comment on above: Order Comment: CONSE RVATION Result Comment: Fast ing GLUCOSE reference range has been updated per (ADA) [place] [employer]'s recommendation. 07/18/2018 Insulin per sl scale Performed By: #### L 500.94061 #### Test performed at: [address] [address] [address] [address] Internal Med Progress Noteon 09-06-2020 Internal Med Progress Note [facility] Patient: CARROLL HARDEN [address] [id number] MR#: [id number] PROGRESS NOTE - Internal Medicine : 58 [...] Surgery was uncomplicated, EBL < 30 cc, WLIL drain in place, no butt. - Pt [...] RES, Katarzy na MD 09/06/20 1134 Normal [facility] Orthopedic Progress Noteon 0 09-06-2020 Orthopedic Progress Note [facility] Patient: CARROLL HARDEN [address] [place] [address] MR#: [id number] PROGRESS NOTE - Orthopedic : 58 Service [...] Temp 36.0 09/06 06 Resp 18 09/06 0620 O2 Flow Rate [...] DIFFICLTY. DISCHARGE INSTRUCTIONS DISCUSSED PATIENT STATED UNDERSTANDING. DR HERNANDEZ AWARE OF ABOVE AND PLAN OF CARE. [...] RN 09/06/20 1022 Tera Hernandez MD Normal [facility] Anesthesia Noteon 09-05-2020 Anesthesia Note [facility] Patient: CARROLL HARDEN [address] [place] [address] MR#: [id number] ANESTHESIA NOTE : Service Date: 09/05/20 0812 [...] Signed eSign Date and Time Krystian Akers APRN-PROFESSIONAL VOLLEYBALL PLAYER 09/05/20 0813 Chu Glez MD Normal [facility] BASIC MET PANELon 09-05-2020 Anion gap [Moles/Vol] 12 mmol/L Normal 6-18 [facility] Comment on above: Performed By: #### L 500.39690, L500.07589 #### Test performed at: [place] [address] Calcium [Mass/Vol] 8.7 mg/dL Normal 8.5-10.1 [facility] Comment on above: Performed By: #### L 500.85586, L500.13834 #### Test performed at: [address] [address] Chloride [Moles/Vol] 101 mmol/L Normal 98-107 [facility] Comment on above: Performed By: #### L 500.52775, L500.05279 #### Test performed at: [address] [address] CO2 [Moles/Vol] 25 mmol/L Normal 21-32 [facility] Comment on above: Performed By: #### L 500.49886, L500.10803 #### Test performed at: [address] [address] Creatinine [Mass/Vol] 1.020 mg/dL Normal 0.550-1.020 [facility] Comment on above: Performed By: #### L 500.15732, L500.98853 #### Test performed at: [address] [address] Glucose [Mass/Vol] 264 mg/dL High 70-99 [facility] Comment on above: Result Comment: Fast ing GLUCOSE reference range has been updated per (ADA) [place] [employer]'s recommendation. 07/18/2018 Performed By: #### L 500.49670, L500.66095 #### Test performed at: [address] [address] OSM 289 mosm/kg Normal 270-300 [facility] Comment on above: Performed By: #### L 500.90688, L500.98431 #### Test performed at: [address] [address] Potassium [Moles/Vol] 4.5 mmol/L Normal 3.5-5.1 [facility] Comment on above: Performed By: #### L 500.78165, L500.05137 #### Test performed at: [address] [address] Sodium [Moles/Vol] 134 mmol/L Low 136-145 [facility] Comment on above: Performed By: #### L 500.48329, L500.38967 #### Test performed at: [address] [address] Urea nitrogen [Mass/Vol] 17 mg/dL Normal 7-18 [facility] Comment on above: Performed By: #### L 500.83529, L500.31785 #### Test performed at: [place] [id number] GFR ESTIMATEon 09-05-2020 IF AMER > 60 Normal > 60 [facility] Comment on above: Result Comment: eGFR (Estimated GFR) Units of measure:mL/min/1.73 meters sq. *CALCULATION REVISED 02/11/2015;IDMS-traceable MDRD equation eGFR is derived from the reexpressed MDRD Study equation using the following parameters: serum creatinine, age, gender and race. An eGFR<60 mL/min/1.73m2 for >3 months is consistent with chronic kidney disease. Refer to KDOQI guidelines for clinical interpretation. Performed By: #### L 500.40869, L500.83115 #### Test performed at: [place] [id number] IF non-AFR AMER 55 Low > 60 [facility] Comment on above: Performed By: #### L 500.61790, L500.54888 #### Test performed at: [place] [id number] GLUCOSE METERon 09-05-2020 Glucose [Mass/Vol] 177 mg/dL High 70-99 [facility] Comment on above: Order Comment: CONSE RVATION Result Comment: Fast ing GLUCOSE reference range has been updated per (ADA) [place] [employer]'s recommendation. 07/18/2018 Performed By: #### L 500.42494 #### Test performed at: [address] [address] Glucose [Mass/Vol] 310 mg/dL High 70-99 [facility] Comment on above: Result Comment: Fast ing GLUCOSE reference range has been updated per (ADA) [place] [employer]'s recommendation. 07/18/2018 Insulin per sl scale Performed By: #### L 500.67837 ####Test performed at: [address] [address] Glucose [Mass/Vol] 281 mg/dL High 70-99 [facility] Comment on above: Result Comment: Fast ing GLUCOSE reference range has been updated per (ADA) [place] [employer]'s recommendation. 07/18/2018 Insulin per sl scale Performed By: #### L 500.00720 #### Test performed at: [address] [address] Glucose [Mass/Vol] 105 mg/dL High 70-99 [facility] Comment on above: Result Comment: Fast ing GLUCOSE reference range has been updated per (ADA) [place] [employer]'s recommendation. 07/18/2018 Performed By: #### L 500.12033 #### Test performed at: [address] [address] HGB AND HCTon 09-05-2020 Hematocrit (Bld) [Volume fraction] 37.5 % Normal 36.0-48.0 [facility] Comment on above: Performed By: #### L 200.55968 #### Test performed at: [address] [address] Hemoglobin (Bld) [Mass/Vol] 12.5 g/dL Normal 12.0-15.0 [facility] Comment on above: Performed By: #### L 200.66233 #### Test performed at: [address] [address] Internal Med Progress Noteon 09-05-2020 Internal Med Progress Note [facility] Patient: CARROLL HARDEN [address], [place] [id number] MR#: [id number] PROGRESS NOTE - Internal Medicine : 58 [...] input. Disc (more content not included)... Normal [facility] OT Therapy Recommendationson 09-05-2020 OT Therapy Recommendations [facility] Patient: CARROLL HARDEN [address] [place] [address] MR#: [id number] OT THERAPY RECOMMENDATIONS : 58 Service Date: 09/05/201510 Therapy Recommendations Therapy Recommendations Recommendations OT evaluation completed. OT recommends HOME with FAmily assist. No further acute OT needs are indicated at this time. Electronically Signed eSign Date and Time Trupti Rojas OT 09/05/20 151 Normal [facility] Orthopedic Progress Noteon 0 09-05-2020 Orthopedic Progress Note [facility] Patient: CARROLL HARDEN [address] [place], [place] [id number] MR#: [id number] PROGRESS NOTE - Orthopedic : 58 Service [...] Tests 09/05 09/05 09/05 09/04 1058 [id number] Chemistry Sodium (136 - 145 mmol/L) 134 [...] ss Electronically Signed eSign Date and Time BILLRUBEN 09/05/20 1429 Tera Hernandez MD Normal [facility] PT Therapy Recommendationson 09-05-2020 PT Therapy Recommendations [facility] Patient: CARROLL HARDEN [address] [place] [address] MR#: [id number] PT THERAPY RECOMMENDATIONS : 58 Service Date: 09/05/20913 Therapy Recommendations Therapy Recommendations Recommendations PT eval complete. No further acute PT needs. Recommend d/c home /c family assist. Electronically Signed eSign Date and Time Tiffanie Bashir PT 09/05/20 0914 Normal [facility] z OT Inpatient Discharge Not juan 09-05-2020 z OT Inpatient Discharge Note [facility] Patient: CARROLL HARDEN [address] [id number] MR#: [id number] OT INPATIENT DISCHARGE NOTE : 58 Service [...] DISCHARGED Electronically Signed eSign Date and Time BobTrupti OT 09/05/20 1534 Normal [facility] z OT Inpatient Evaluationon 09-05-2020 z OT Inpatient Evaluation [facility] Patient: CARROLL HARDEN [address] [address] MR#: [id number] OT INPATIENT EVALUATION : 58 Inpatient OT HPI Date of Service 09/05/20 Time In: 1401 Time Out: 1412 Total Treatment Time (Mins) 11 Visit Reason LATERAL RECESS STENOSIS W/ RADICULOPATHY Surgery Type/Date s/p L L4-5 LAmi, foraminotomy, decompression on 09.04.20/ Lumbar spine precautions Referral Date 09/04/20 Tx Diagnosis: LOW BACK PAIN Insurance Name [facility] POS [facility] Hospital Course Pt is a left hand [...] 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 Objective Precautions Lumbar Spine [...] Excellent Nader (more content not included)... Normal [facility] z PT Inpatient Discharge Not juan 09-05-2020 z PT Inpatient Discharge Note [facility] Patient: CARROLL HARDEN [address] [place], [place] [id number] MR#: [id number] PT INPATIENT DISCHARGE NOTE : 58 Service [...] Time Tiffanie Bashir PT 09/05/20 1139 Normal [facility] z PT Inpatient Evaluationon 09-05-2020 z PT Inpatient Evaluation [facility] Patient: CARROLL HARDEN [address] [place], [place] [id number] MR#: [id number] PT INPATIENT EVALUATION : 58 Service Date: 09/05/20 0928 Inpatient PT HPI Date of Service 09/05/20 Time In: 0845 Time Out: 0907 Total Treatment Time (Mins) 22 Room Number 624 Visit Reason LATERAL RECESS STENOSIS W/ RADICULOPATHY Surgery Type: L L4-5 lami, foraminotomy, decompression Surgery Date: 09/04/20 Referral Date 09/04/20 Tx Diagnosis: LOW BACK PAIN Insurance Name [facility] POS O Hospital Course 60 y.o female at [facility] for above sx d/t lateral [...] posture. 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 Pt agreeable to use of her cane [...] Electronically Signed eSign Date and Time Tiffanie aBshir PT 09/05/20 1502 Normal [facility] GLUCOSE METERon 09-04-2020 Glucose [Mass/Vol] 94 mg/dL Normal 70-99 [facility] Comment on above: Result Comment: Fast ing GLUCOSE reference range has been updated per (ADA) [place] [employer]'s recommendation. 07/18/2018 Performed By: #### L 500.49430 ####Test performed at: [place] [address] Internal Medicine Consultati onon 09-04-2020 Internal Medicine Consultation [facility] Patient: CARROLL HARDEN [address] [place] [address] MR#: [id number] CONSULTATION - Internal Medicine : 58 Service [...] as Reported by LUZ CABELLO on 09/04/20 105 Last Action: Reviewed on 09/04/201056 by LUZ CABELLO Atenolol * (Tenormin *) 50 MG TABLET 50 MG PO DAILY MIGRAINES, Ref 0 (Reported) Entered as Reported by JORDON MATHUR on 12/11/18919 Last Action: Reviewed on 09/04/201054 by LUZ CABELLO Citalopram Hydrobromide * (CeleXA [...] Action: Reviewed on 09/04/201054 by LUZ CABELLO Metformin HCl (Glucophage) 500 MG TABLET 500 [...] as Reported by JORDON MATHUR on 12/11/18 0916 Last Action: Reviewed on 09/04/20 1055 by LUZ CABELLO Scheduled PRN Medications Oxycodone HCl * (Roxicodone 5mg Tablet*) 5 MG TABLET 5 MG PO BIDPRN PRN Pain, Ref 0 ( Reported) Entered as Reported by LUZ CABELLO on 09/04/20 1049 Last Action: Reviewed on 09/04/20 1055 by LUZ CABELLO Rizatriptan Benzoate* (Maxalt*) 10 MG TABLET 10 MG PO BIDPRN PRN MIGRAINES, Ref 0 ( Reported) Entered as Reported by JORDON MATHUR on 12/11/18 0915 Last Action: Reviewed on 09/04/20 1055 by LUZ CABELLO Discontinued Medications oxyCODONE HCl 5mg AND Acetaminophen 325mg * (Percocet 5mg/325mg Tablet *) 1 EACH TABLET 1 EACH PO Q4-6H PRN PRN post op pain 7 Days #40 TABLET, Ref 0 Discontinued reason: DC'ed by Physician Last Action: Discontinued on 09/04/20 1048 by LUZ CABELLO Review of Systems (more content not included)... Normal [facility] OPERATIVE REPORTon OPERATIVE REPORT NAME: CARROLL HARDEN MR#: [id number] SURGEON: Tera Hernandez MD DATE OF SURGERY: [...] there were no complications. TERA HERNANDEZ MD [facility] PT NAME: CARROLL HARDEN MR#: [id number] [address] [place] [address] ACCT: [id number] : 58 OPERATIVE REPORT [id number] E/S: Tera Hernandez MD 09/18/20 1207 Electronically Signed [facility] PT NAME: CARROLL HARDEN MR#: [id number] [address] [place] [address] ACCT: [id number] : 58 OPERATIVE REPORT Normal [facility] Primary Residenton Primary Resident [facility] Pt Name: CARROLL HARDEN MR#: [id number] [address] [place] [address] ACCT: [id number] [place] [id number] : 58 Service Date: 09/04/20 1603 Primary Resident/Call Primary Resident: [id number] Panchito After Hours Call: [phone] Red Team Electronically Signed eSign Date and Time PanchitoAna norton RES 09/16/20 1521 Normal [facility] LUMBAR SPINE 2 OR 3 VIEWSon 09-03-2020 LUMBAR SPINE 2 OR 3 VIEWS STUDY: LUMBAR SPINE 2 OR 3 VIEWS; 09/04/2020 2:57 pm INDICATION: LEFT L4-L5 LAMINECTOMY,FORAMINOT JOSE ANGEL,DECOMPRESSION. COMPARISON: None. ACCESSION NUMBER(S): [id number] ORDERING CLINICIAN: Tera Hernandez FINDINGS: Intraoperative fluoroscopy of the lumbar spine demonstrates surgical instruments posterior to L5. IMPRESSION: As above Normal [facility] CHEST PA/AP & LATERALon CHEST PA/AP & LATERAL STUDY: CHEST PA/AP LATERAL; 08/25/2020 11:00 am INDICATION: SOB/PAT. COMPARISON: None. ACCESSION NUMBER(S): [id number] ORDERING CLINICIAN: Madelyn Leslie FINDINGS: The lungs are clear without pleural effusion. Normal heart size, mediastinum, elzbieta, and pulmonary vasculature. IMPRESSION: No active disease in the chest. Normal [facility] CONSULTATION REPORTon 2020 CONSULTATION REPORT NAME: CARROLL HARDEN MR#: [id number] TON CONTAINER SHIPPER: Madelyn Leslie MD DATE OF CONSULTATION: 08/25/2020 [...] pulse ox is 98% on room air. [facility] PT NAME: CARROLL HARDEN MR#: [id number] [address] [place] [address] ACCT: [id number] : 58 CONSULTATION HEENT: Atraumatic head. 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 IMPRESSION: 1. Preop clearance for L4-L5 disk [...] courtesy of this consultation. MADELYN LESLIE MD MS/MODL/[id number] E/S: Madelyn Leslie MD 08/26/20 1750 Electronically Signed [facility] [place] PT NAME: CARROLL HARDEN MR#: [id number] [address] [place] [address] ACCT: [id number] : 58 CONSULTATION Normal [facility] LUMB SP COMP W FLEX/EXT 6 VW S>on 08-08-2020 LUMB SP COMP W FLEX/EXT 6 VWS> STUDY: LUMB SP COMP W FLEX/EXT 6 VWS>; 08/08/2020 9:43 am INDICATION: BACK PAIN. COMPARISON: No available comparisons. ACCESSION NUMBER(S): [id number] ORDERING CLINICIAN: Tera Hernandez TECHNIQUE: 6 views [...] L5-S1 level. No evidence of instability.. Normal [facility] XR SHLDR >/=3V AP/RUSH AP/OTH [...] Jul 03 2018 10:17AM EST [id number] N [facility] ANES Holly 06-20-2018 ANES POST HNO ID: [id number] Author: Rohit Velarde Service: Anesthesiology Author Type: [...] 20, 2018 TIME: 2:38 PM PAGER/CONTACT #: [facility] ANES PREOPon 06-20-2018 ANES PREOP HNO ID: [id number] Author: Rohit Velarde Service: Anesthesiology Author Type: [...] injection (XYLOCAINE) 0.1-0.2 mL INTRADERMAL PRN Isreal Kim) [place] lactated ringers infusion 5-30 mL/hr INTRAVENOUS CONTINUOUS Isreal Kim) [place] ceFAZolin iv piggyback 2 g in D5W (iso-osmotic) 100 mL (ANCEF) 2 g INTRAVENOUS Pre-Op Once Isreal Kim) [place] acetaminophen 1,000 mg tab(s) (TYLENOL) 1,000 mg ORAL ONCE Isreal Kim) [place] bupivacaine liposome (PF) 1.3 % (13.3 mg/mL) [...] June 20, 2018 TIME: 9:35 AM CSN: [id number] [facility] BRIEF OP NOTon 06-20-2018 BRIEF OP NOT HNO ID: [id number] Author: Kusum Francisco Service: Orthopaedic Surgery Author Type: Resident Type: Brief Op Note Filed: 06/20/2018 5:49 PM Note Text: BRIEF OP NOTE LOG ID: [id number] Surgery/Procedure Date: 06/20/2018 Incision/Procedure Start Time: 11:18 AM Incision Close/Procedure End Time: 1:17 PM Surgeon(s)/Procedural ist(s) and Modeling Agency Manager(s): Surgeon(s) and Role: * Jenna Lentz - [...] 20, 2018 TIME: 5:49 PM PAGER/CONTACT #: [facility] CASE MANAGEMon 06-20-2018 CASE MANAGEM HNO ID: [id number] Author: May Herrera (Sw) Service: Care Management Author Type: Diesel Pile Hammer Operator Type: Care Mgt Progress Note Filed: 06/20/2018 [...] is pcp summary of care sent via [facility] () Nurse to provide discharge instructions. TRANSPORTATION ARRANGEMENTS: Car Spouse ADDITIONAL CONTACT RESOURCES: Needs Prior to Discharge: Ready for Discharge Appointments for Next 45 Days Date Time Provider Location Dept Phone 07/03/2018 10:00 AM CAROLA BAPTISTE AT [phone] 07/03/2018 10:30 AM GABRIEL CANTU) LATOSHA AT [phone] 07/31/2018 2:15 PM JENNA LENTZ AT [phone] Pt to be discharged home to follow up as above. SIGNATURE: DARIO Saini PATIENT NAME: Carroll Harden DATE: June 20, 2018 TIME: 5:31 PM PAGER/CONTACT #: [phone] [facility] CASE MGT INIT [facility] 2018 CASE MGT INIT [facility] HNO ID: [id number] Author: May Herrera (Sw) Service: Care Management Author Type: Diesel Pile Hammer Operator Type: Care Mgt Initial Assessment Filed: 06/20/2018 [...] None Has the Patient Been in a Detention Facility in the Past 30 days? 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 O.Therapy recommend home. Spouse visiting at bedside and will transport pt home later today.Further discharge needs not anticipated.SW/TCC to follow to assist with plans for discharge. SIGNATURE: DARIO Saini PATIENT NAME: Carroll Harden DATE: June 20, 2018 TIME: 5:27 PM PAGER/CONTACT #: [phone] [facility] CONSULTon 06-20-2018 CONSULT HNO ID: [id number] Author: Dulce Green Service: General Internal Medicine [...] Disp: Rfl: 06/19/2018 at 0630 rizatriptan (MAXALT GREASER HELPER) 10 mg disintegrating tablet DISSOLVE 1 TABLET [...] in the care of your patient. Dulce Green APRN.BANQUET DIRECTOR June 20, 2018 4:34 PM Normal [facility] NURSING PROGon 06-20-2018 Protein mass conc HNO ID: [id number] Author: Fela (Rn) Jacqueline, FLETCHER Service: (none) Author Type: Registered Nurse Type: Nursing Progress Note Filed: 06/20/2018 7:39 PM Note Text: Nursing Progress Note Patient Name: Carroll Harden Patient Location: -523/ [place]-* Daily Note: 1545. Care assumed. Pt resting comfortably in bed, call light and possessions within reach. Lungs clear on RA, denies SOB and chest pain. Bowel sounds present, denies nausea. Sling immobilizer in place to R arm. Oren bowers. Sensation intact, able to wiggle fingers. Plan is to see OT, once cleared by them pt can be D/Anderson per Sun. 1400. OT at bedside. 1720. Dr. Blake and Dulce PLODDING OPERATOR at bedside, plan is to stay for [...] note was completed by: Fela Phillips RN [facility] Protein mass conc HNO ID: [id number] Author: Wendy ValenciaRn) Kj, FLETCHER Service: Nursing Author Type: Registered Nurse Type: [...] note was completed by: Wendy Underwood RN [facility] OPERATIVE NOon 06-20-2018 OPERATIVE NO HNO ID: [id number] Author: Jenna Lentz Service: Orthopaedic Surgery Author Type: Physician Type: Operative Report Filed: 06/20/2018 1:25 PM Note Text: [place] [address] [place] OPERATIVE REPORT NAME: [facility] #: [id number] DATE: 06/20/2018 (11:18am-1:17pm) AGE: 58 SURGEON 1: Jenna Lentz M.D. ROLE PLAYER: 1. Augie Coates M.D. 2. Kusum Prasad M.D. 3. Mundo Pablo OPERATION: Right total shoulder arthroplasty, biceps tenodesis. ANESTHESIA: General anesthesia with regional interscalene nerve block for postoperative pain control. PREOPERATIVE DIAGNOSIS: Right shoulder primary glenohumeral osteoarthritis. POSTOPERATIVE DIAGNOSIS: Right shoulder primary glenohumeral osteoarthritis, biceps tendinopathy. OPERATIVE INDICATIONS: The patient is a 58 year oldkfo-ceyx-dqk right-hand dominant white female who has a [...] rotator interval stitch was then passed in aiodur-gr-uknzk fashion with a #2 Ticron suture and tied down to close the lateral rotator interval and set the osteotomy superiorly. The two #2 Fiberwire sutures coming out of the bicipital groove were then sequentially passed in a aymcix-gd-omdcz fashion medial to the horizontal mattress and [...] none COMPLICATIONS: none apparent Jenna Lentz M.D. [facility] ED 06-20-2018 PT ED HNO ID: [id number] Author: Cindy (Rn) FLETCHER Griffin Service: (none) Author Type: Registered [...] Signed By: Cindy Griffin RN In Department: [facility] SURGICAL SERVICES Normal [facility] THERAPY NTon 06-20-2018 THERAPY NT HNO ID: [id number] Author: Abi ValenciaOt) Alan Service: Occupational Therapy Author Type: Occupational Therapist Type: Therapy (PT/OT/Speech/Resp) Filed: 06/20/2018 4:59 PM Note Text: Occupational Therapy Evaluation SERVICE DATE: 06/20/2018 SERVICE TIME: 1550 to 1640 ROOM: [address] Recommended Discharge Disposition: Home Anticipated Discharge [...] living (ADL) Interventions Provided: Evaluation;Therapeuti c Exercise (12403);Self Usp Management (12310) $ Evaluation-Low (45534) Billed Units: 1 unit Therapeutic Exercise (08463) Treatment Minutes: 10 1 unit Skilled Intervention(s): Education in Self Usp Management (79168) Treatment Minutes: 28 2 units Skilled Intervention(s): [...] Environment Patient Lives With: Spouse Assistance Available: part time flexible clerk Number Of Stairs To Bed/Bath: 0 Equipment [...] details for this therapy evaluation/treatment. SIGNATURE: CHACORTA Estrada/Cesar PATIENT NAME: Carroll Harden DATE: June 20, 2018 TIME: 4:54 PM [facility] XR SHOULDER 2V AP/TRUE AP RT on 06-20-2018 XR SHOULDER 2V AP/TRUE AP RT * * *Final Report* * * DATE OF EXAM: Jun 20 2018 1:45PM [facility] 5255 - XR SHOULDER 2V AP/TRUE AP [...] Jun 20 2018 2:04PM EST [id number] N [facility] NURSING PROGon 06-09-2018 Protein mass conc HNO ID: [id number] Author: Ivana (Rn) FLETCHER Heller Service: Nursing [...] 2018 11:10 AM Addendum 06/15/18 EKG IN [facility] FINAL Ivana Heller RN June 15, 2018 4:39 PM [facility] Type and SCR (30D)on 019 ABO/RH(D) Positive [facility] HOSPon 04-28-2018 HOSP Patient:Adalberto Harden MRN: Height:5' 2 (1.575 m) Weight:186 lb (84.369 kg) Outpatient Medications as of 06/20/18: calcium phosphate dibas/vit D3 (VITAMIN D, WITH CALCIUM, ORAL) docusate sodium (COLACE) 100 mg capsule aspirin, enteric coated (ECOTRIN LOW STRENGTH) 81 mg EC tablet oxyCODONE-acetaminoph en (PERCOCET) 5-325 mg tablet rizatriptan (MAXALT GREASER HELPER) 10 mg disintegrating tablet mupirocin (BACTROBAN) 2 [...] (Pf)] Imitrex [Sumatriptan Succinate] Influenza Vaccine Tri-Sp 01-02 Latex Betadine [Povidone-Iodine] Dhe Dilaudid [Hydromorphone (Bulk)] Date Verified: 06/20/18 Lab Values Lab Value Units Date High Low POTA* 5.1 mmol/L 06/07/2018 5.1 3.7 NATY* 40.7 % 06/07/2018 46.0 36.0 Progress Notes (RADIO CT SCAN [facility]): RT Lillian, Tech 06/07/2018 10:04 AM [...] RT Lillian June 07, 2018 9:54 AM [facility] Vital Signs Date Time Vital Sign Value Performing Clinician Facility 04-29-2023 09:00-0500 Body height 154.94 cm Robert Ball Other [facility] Other 04-29-2023 09:00-0500 Body mass index (BMI) [Ratio] 33.14 kg/m2 Robert Ball Other [facility] Other 04-29-2023 09:00-0500 Body weight 79.56 kg Robert Ball Other [facility] Other 04-29-2023 09:00-0500 Diastolic blood pressure 89 mm[Hg] Robert Ball Other [facility] Other 04-29-2023 09:00-0500 Respiratory rate 12 /min Robert Ball Other [facility] Other 04-29-2023 09:00-0500 Systolic blood pressure 155 mm[Hg] Robert Ball Other [facility] Other 12-20-2022 13:45-0400 Body height 154.94 cm Robert Ball Other [facility] Other 12-20-2022 13:45-0400 Body mass index (BMI) [Ratio] 34.12 kg/m2 Robert Ball Other [facility] Other 12-20-2022 13:45-0400 Body weight 81.92 kg Robert Ball Other [facility] Other 12-20-2022 13:45-0400 Diastolic blood pressure 96 mm[Hg] Robert Ball Other [facility] Other 12-20-2022 13:45-0400 Respiratory rate 12 /min Robert Ball Other [facility] Other 12-20-2022 13:45-0400 Systolic blood pressure 179 mm[Hg] Robert Ball Other [facility] Other 08-04-2022 09:45-0400 Body height 154.94 cm Robert Ball Other [facility] Other 08-04-2022 09:45-0400 Body mass index (BMI) [Ratio] 33.33 kg/m2 Robert Ball Other [facility] Other 08-04-2022 09:45-0400 Body weight 80.02 kg Robert Ball Other [facility] Other 08-04-2022 09:45-0400 Diastolic blood pressure 77 mm[Hg] Robert Ball Other [facility] Other 08-04-2022 09:45-0400 Respiratory rate 12 /min Robert Ball Other [facility] Other 08-04-2022 09:45-0400 Systolic blood pressure 128 mm[Hg] Robert Ball Other [facility] Other Encounters Encounter Date Encounter Type Care Provider Facility Start: 05-13-2023 End: 05-13-2023 ambulatory Robert Ball Other [facility] Other Start: 05-13-2023 Telephone encounter Robert Ball [facility] Start: 05-09-2023 End: 05-09-2023 ambulatory Robert Ball Other [facility] Other Start: 05-09-2023 Telephone encounter Robert Ball [facility] Start: 05-04-2023 End: 05-04-2023 ambulatory Robert Ball Other [facility] Other Start: 05-04-2023 Telephone encounter Robert Ball [facility] Start: 05-02-2023 End: 05-02-2023 ambulatory Robert Ball Other [facility] Other Start: 05-02-2023 Telephone encounter Robert Ball [facility] Start: 04-29-2023 End: 04-29-2023 ambulatory Robert Ball Other [facility] Other Start: 04-29-2023 Office outpatient vi sit 15 minutes Robert Ball [facility] Start: 04-04-2023 End: 04-04-2023 ambulatory Robert Ball Other [facility] Other Start: 04-04-2023 Telephone encounter Robert Ball [facility] Start: 01-24-2023 End: 01-24-2023 ambulatory Robert Ball Other [facility] Other Start: 01-24-2023 Telephone encounter Robert Ball [facility] Start: 12-23-2022 End: 12-23-2022 ambulatory Robert Ball Other [facility] Other Start: 12-23-2022 Telephone encounter Robert Ball [facility] Start: 12-20-2022 End: 12-20-2022 ambulatory Robert Ball Other [facility] Other Start: 12-20-2022 Office outpatient vi sit 15 minutes Robert Hamilton [facility] Start: 12-17-2022 End: 12-17-2022 ambulatory Robert Cruz Other [facility] Other Start: 12-17-2022 Telephone encounter Robert Hamilton [facility] Start: 11-08-2022 End: 11-08-2022 ambulatory Robert Cruz Other [facility] Other Start: 11-08-2022 Telephone encounter Robert Cruz [facility] Start: 10-22-2022 End: 10-22-2022 ambulatory Robert Cruz Other [facility] Other Start: 10-22-2022 Telephone encounter Robert Cruz [facility] Start: 10-13-2022 End: 10-13-2022 ambulatory Robert Cruz Other [facility] Other Start: 10-13-2022 Telephone encounter Robert Cruz [facility] Start: 09-27-2022 End: 09-27-2022 ambulatory Robert Cruz Other [facility] Other Start: 09-27-2022 Telephone encounter Robert Hamilton [facility] Start: 08-23-2022 End: 08-24-[address] RISHI PARKER Facility:[facility] Start: 08-04-2022 End: 08-04-2022 ambulatory Robert Cruz Other [facility] Other Start: 08-04-2022 Office outpatient vi sit 25 minutes Robert Cruz [facility] Start: 04-03-2022 Encounter for genera l adult medical examination without abnormal findings DR ROBERT CRUZ [facility] Start: 03-30-2022 End: 03-31-[address] ROBERT [...] Start: 07-03-2018 End: 07-03-2018 Patient encounter procedure [facility] Start: 06-20-2018 End: 06-20-2018 Evaluation and management of inpatient [facility] Procedures Date Procedure Procedure Detail Performing Clinician Start: 06-07-2018 Antibody screen JENNA NOA GUY Payers Date Payer Category Payer [facility] [id number] 2019 Unknown [id number] 1960 Self-pay [id number] 1960 Unknown [id number] 2.16.84 [id number] 1959 Unknown [id number] 2.16.84 [id number] 1959 Unknown [id number] 2.16.84 [id number] 1959 Unknown [id number] 2.16.84 [id number] 1959 Unknown [id number] 2.16.84 [id number] 1959 Unknown [id number] 2.16.84 [id number] Unknown [id number] 2.16.84 [id number] Social History Date Type Detail Facility Sex Assigned At [facility] Other Clinical Notes 08-04-2022 to 05-09-2023 Note Date & Type Note Facility 05-09-2023 Evaluation note Encounter Date Diagnosis Assessment Notes Apr, Intractable chronic migraine without aura and without status migrainosus (ICD-10 - G43.719) [facility] Other 01-08-2024 Evaluation note* Encounter Date Diagnosis Assessment Notes Treatment Notes Treatment Clinical Notes Apr, Intractable chronic migraine without aura and without status migrainosus (ICD-10 - G43.719) [facility] Other 01-05-2024 Evaluation note* Encounter Date Diagnosis [...] Begin Amitriptyline Stop Tizanidine. MRI cervical spine [facility] Other 08-31-2023 Evaluation note* Encounter Date Diagnosis Assessment Notes Treatment Notes Treatment Clinical Notes Nov, Primary hypertension (ICD-10 - I10) [facility] Other 08-28-2023 Evaluation note* Encounter Date Diagnosis Assessment Notes Treatment Notes Treatment Clinical Notes Nov, Adverse effect of smooth muscle relaxant, subsequent encounter (ICD-10 - T44.3X5D) Avoid combination of Klonopin and Zanaflex when scheduled staff radiation therapist. May want to cut back on Zanaflex. [...] Pain in left shoulder (ICD-10 - M25.512) [facility] Other 06-30-2023 Evaluation note* Encounter Date Diagnosis Assessment Notes Treatment Notes Treatment Clinical Notes Sep, Type 2 diabetes mellitus with hyperglycemia, without long-term current use of insulin (ICD-10 - E11.65) [facility] Other 06-05-2023 Evaluation note* Encounter Date Diagnosis Assessment Notes Treatment Notes Treatment Clinical Notes Sep, Candidiasis, intertriginous (ICD-10 - B37.2) [facility] Other 04-12-2023 Evaluation note* Encounter Date Diagnosis [...] use, the patient reduces the risk for RI, CVA, HTN, cardiac dysrhythmias and sudden cardiac [...] Jul, Other specified hypothyroidism (ICD-10 - E03.8) [facility] Other Evaluation noteNo Information[facility] Other History general Narrative - Reported* Type [...] LEFT HEART CATHETERIZATION 2016 Hospitalization History SEE SURIGCAL HX [facility] Other History general Narrative - Reported* Type [...] r) Medical History Leukopenia Surgical History EGD 1994,2021 Surgical History COLONOSCOPY Surgical History LAMINOTOMY AND FORAMINOTOMY,SPI NE,LUMBAR Surgical History ANTERIOR CERVICAL DISCECTOMY AN D FUSION Surgical History GET/BSO Surgical History THYROIDECTOMY 10/1990 Surgical History LEFT HEART CATHETERIZATION 2015 Surgical History Right knee arthroscopy 10/2022 Hospitalization History SEE SURIGCAL HX [facility] Other Reason for referral (narrative)* Reason Evaluation of right knee pain Diagnosis 1 Strain of right knee , subsequent encounter (U92.537H) Referral Organization [facility] bhupinder Referring Provider First Name Robert Referring Provider Last Name Hamilton Referring Provider Specialty Internal Hi dicjuan Referred Provider Rishi Parker Jr Referred Provider Specialty Orthopedic S urgery Referral Priority Routine [facility] Other Reason for referral (narrative)* Reason Referral for neck pa in Diagnosis 1 Cervicalgia (M54.2) Diagnosis 2 Cervical spondylosis (M47.812) Referral Organization [facility] bhupinder Referring Provider First Name Robert Referring Provider Last Name Hamilton Referring Provider Specialty Internal Hi dicine Referred Organization [facility] Referred Address [address] [place], [place],[address] Referred Provider Specialty Pain Medicin e Referral Priority Routine General Notes Patient has hx of ce rvical discectomy and fusion and presented w/ persistent neck pain, which radiated upwards causing a headache. She is being referred for treatment with the pain clinic. Clinical Notes Include MRI [facility] Other Summary Purpose Family History No Family History Records FoundNo Family History Records FoundNo Family History Records FoundNo Family History Records Found Advance Directives No Advanced Directives Records FoundNo Advanced Directives Records FoundNo Advanced Directives Records FoundNo Advanced Directives Records Found Additional Source Comments INFORMATION SOURCE (unrecogn ized section and content) DATE CREATED AUTHOR 06/20/2018 [facility] DATE CREATED AUTHOR [facility]S [facility] AT[facility] DATE CREATED AUTHOR AUTHOR'S ORGANIZ ATION 09/18/2020 [facility] DATE CREATED AUTHOR AUTHOR'S ORGANIZ ATION 08/27/2022 [facility] REASON FOR VISIT (unrecogniz ed section and content) right knee painAdditional Me dicationRefillRefillsNo InformationWants in on TuesdayTBHBPsleep study ordermamm resultsMigrainesLab orderMigrainesMRI resultsmigrainesMigraines FOR RECORDS PERTAINING TO PATIENTS WHO ARE [...] BE BASED ON THE PRIMARY CLINICAL RECORDS. [facility] [place]. com. cn [facility]. provides no warranty or guarantee of the accuracy or completeness of information in this document.
--- NOTE | 2023-05-18 08:34 | P.CN_ITS ---
Consult Note: HPI Data of Consult Patient: new to practice Consult date: 05/18/23 Requesting Physician: Selina Presley NP Primary Care Provider: Robert Cruz DO Consult Narrative Reason for consult: new pt, hx of migraines Narrative: Janny Fuentes a pleasant 63 year old female presents for evaluation and management of chronic migraines, hx of cervical fusion. Since March patient has been experiencing daily migraines, pain 2/10 increases to 10/10. Pain throbbing, decreased with dark room, lying, taking excederin and migraine. Patient continues to experience severe pain. Denies numbness, tingling, weakness, negative for neck pain. cc:: CC: Selina Presley NP Review of Systems ROS Status of ROS 10 or more systems reviewed and unremark able except as noted in history and below Meds Home Medications and Allergies Home Medications Medication Instructions Recorded Confirmed Type atenolol 50 mg tablet 50 mg PO DAILY 09/28/22 09/28/22 History citalopram 40 mg tablet (Celexa) 40 mg PO DAILY 09/28/22 09/28/22 History clonazepam 0.5 mg tablet 0.5 mg PO .3 tabs 09/28/22 09/28/22 History fluconazole 100 mg tablet 100 mg PO Q24H 09/28/22 09/28/22 History glimepiride 4 mg tablet 4 mg PO DAILY 09/28/22 09/28/22 History levothyroxine 125 mcg tablet 125 mcg PO DAILY 09/28/22 09/28/22 History (Synthroid) metformin 500 mg tablet 500 mg PO BID 09/28/22 09/28/22 History nabumetone 1,000 mg tablet 1,000 mg PO BID 09/28/22 09/28/22 History (Relafen DS) oxycodone-acetaminophen 5 mg-325 1 tab PO Q6H PRN pain 09/28/22 09/28/22 History mg tablet pravastatin 40 mg tablet 40 mg PO DAILY 09/28/22 09/28/22 History tizanidine 4 mg tablet 4 mg PO .hs PRN muscle spasticity 09/28/22 09/28/22 History Allergies Allergy/AdvReac Type Severity Reaction Status Date / Time hydromorphone [From Dilaudid] Allergy Intermediate Verified 09/28/22 20:42 iodine Allergy Intermediate Verified 09/28/22 20:42 latex Allergy Intermediate Verified 09/28/22 20:42 meperidine [From Demerol] Allergy Intermediate Verified 09/28/22 20:42 sumatriptan [From Imitrex] Allergy Intermediate Verified 09/28/22 20:42 Exam Constitutional Documenting provider has reviewed patient's vital signs: yes Common normals: no apparent distress, oriented x3, healthy appearing, alert and well nourished General appearance: cooperative HENMT Common normals: normocephalic, hearing grossly normal bilaterally and moist oral mucous membranes Head and scalp: normocephalic Eye Common normals: PERRL Pupil: PERRL Neck & C-Spine Common normals: full ROM General: normal visual inspection Other: negative facet loading pain over bilateral occipital nerves, greater on right than left increased pain with palpation cervical muscles and paraspinal muscles tense and tender with palpation Chest Common normals: inspection of chest normal Respiratory Common normals: normal respiratory effort, no retractions and no use of accessory muscles Neuro Common normals: oriented x3, CN's II-XII intact bilaterally, moves all extremities, no focal motor deficits, no sensory deficits noted, deep tendon reflexes 2+ bilaterally and gait normal Sensorium/orientation: alert Motor exam: strength 5/5 throughout and no movement abnormalities noted Psych Common normals: mental status grossly normal, thought process normal, cooperative, affect normal, speech normal and activity/motor behavior normal Speech: normal speech Thought process: normal thought process Results Additional Findings Additional findings: I have checked an OARRS report on this patient today and there are no aberrancies noted in the prescribing history.?? A drug screen was completed and reviewed within the last year, and if there has not been a drug screen completed we ordered one today to monitor higher risk, state monitored pain medication use. As part of providing excellent, safe, comprehensive care, the following was completed at our patient's visit: 1. A medication reconciliation and review to ensure accurate knowledge of current/active medications, including asking our patients to inform us about any [id number] medications or herbal remedies/nutritional supplements/alternative remedies. 2. A review to specifically ensure our patients have had annual screening for: elevated body mass index (BMI), tobacco use, screening for depression, and screening for unhealthy alcohol use. When screening is concerning, patients are provided with education and the specific recommendation to discuss the concerning health issue and treatment options with their primary care provider. Assessment and Plan Assessment and Plan (1) Migraines: (2) Bilateral occipital neuralgia: (3) Myofascial pain syndrome, cervical: Plan bilateral occipital nerve injection with Dr Barron increase tizanidine 4mg BID PRN myofascial pain continue maxalt, excederin, aleve PRN f/u with Dr Barron to consider cervical TPI post injection
== END 2023-05-18 08:19 | disposition home or self-care (01) ==
LOC: PM 08:18
PROVIDERS: PCP Internal Medicine; Visit Provider Nurse Practitioner
DX: G43.909 Migraine, unspecified, not intractable, without status migrainosus (principal); M54.81 Occipital neuralgia; M79.18 Myalgia, other site
CPT/HCPCS: G0463

== ENCOUNTER 2023-05-23 11:20 | Outpatient (OUT) | payer BC, SELFPAY ==
--- OUTSIDE RECORDS SUMMARY | 2023-05-23 11:25 | XMS_ITS | CCD ---
Author Name Unknown Address [address] [place] [address] Organization [facility] Care Team Providers Care Labor Supervisor Name Role Phone JENNA LENTZ Admitting Unavailable JENNA LENTZ Attending Unavailable LISANDRO BLAKE Consulting Unavailable EJNNA LENTZ Referring Unavailable Robert Cruz Unavailable HAMILTON, [...] adverse reactions to drug (disorder) 09-30-19 11 [facility] Other [place] Repository (2 sources) HYDROmorphone; Translations: [HYDROMORPHONE (BULK)] Drug Allergy 08-17-19 17 [facility] Repository (19 sources) Latex; Translations: [LATEX] Propensity to adverse reactions to drug (disorder) 09-30-19 11 Unknown [facility] Repository (2 sources) Meperidine; Translations: [MEPERIDINE (PF)] Drug Allergy 09-30-19 11 [facility] Repository (2 sources) Povidone-Iodine; Translations: [POVIDONE-IODINE] Drug Allergy 10-21-19 17 [facility] Repository (2 sources) SUMAtriptan; Translations: [SUMATRIPTAN SUCCINATE] Drug Allergy 09-30-19 11 [facility] Repository (2 sources) INFLUENZA VACCINE TRI-SP 09-10; Translations: [INFLUENZA VACCINE TRI-SP 09-10] Propensity to adverse reactions to drug (disorder) 09-30-19 11 [facility] Repository (3 sources) DHE; Translations: [DHE] Propensity to adverse reactions to drug (disorder) 10-24-19 13 [facility] Repository (16 sources) HYDROmorphone Drug Allergy Unknown [facility] Other (17 sources) Iodine; Translations: [iodine] Drug Allergy 10-24-19 13 Unknown [facility] Repository (16 sources) Meperidine Drug Allergy Unknown [facility] Other (16 sources) SUMAtriptan Drug Allergy Unknown [facility] Other (16 sources) Fluad Drug allergy Unknown [facility] Other (16 sources) DHEA Drug allergy Unknown [facility] Other (1 source) HYDROmorphone Drug Allergy 10-24-19 13 [facility] Repository (1 source) Meperidine Drug Allergy 10-24-19 13 [facility] Repository (1 source) Plasmin Drug Allergy 10-24-19 13 [facility] Repository (11 sources) influenza A virus (H1N1) antigen / influenza A virus (H3N2) antigen / influenza B virus antigen Drug Allergy 11-21-19 14 Comment:FLU VACCINE [facility] Other (11 sources) Contraindication to Flu Injection Propensity to adverse reactions 03-07-20 Comment:advers e rxn/side effects [facility] Other (3 sources) patient allergy list reviewed by nurse or physicia Propensity to adverse reactions 12-22-19 Comment:Done [facility] Other Medications Current Medications Medication Drug Class(es) [...] Start: 09-30-2022 take 3 tablets [facility] clonazePAM 0.5 MG TAKE [...] every two hours as needed for headache Maxalt-GAMING INVESTIGATOR 10 MG 1 tablet Orally PRN headache, [...] BERNY CANO Date: 2022-08-24 07:19 Normal [facility] CBC AUTO DIFFon 03-30-2022 BASO # 0.0 103/ul Normal 0.0-0.1 [facility] Comment on above: Performed By: #### C BC #### [facility] [address] [address] [address] Rc Foster Basophils/100 WBC (Bld) 0.4 % Normal 0.2-2.0 [facility] Comment on above: Performed By: #### C BC #### [facility] [address] [place] [address] Dr. Rc Foster EO # 0.3 103/ul Normal 0.0-0.7 [facility] Comment on above: Performed By: #### C BC #### [facility] [address] [place] [address] Dr. Rc Foster Eosinophils/100 WBC (Bld) 4.9 % Normal 0.9-7.0 [facility] Comment on above: Performed By: #### C BC #### [facility] [address] [place] [address] Dr. Rc Foster Erythrocyte distribution width (RBC) [Ratio] 12.2 % Normal 11.0-15.0 [facility] Comment on above: Performed By: #### C BC #### [facility] [address] [place] [address] Dr. Rc Foster Hematocrit (Bld) [Volume fraction] 39.8 % Normal 36.0-48.0 [facility] Comment on above: Performed By: #### C BC #### [facility] [address] [place] [address] Dr. Rc Foster Hemoglobin (Bld) [Mass/Vol] 13.1 g/dL Normal 12.0-16.0 [facility] Comment on above: Performed By: #### C BC #### [facility] [address] [place] [address] Dr. Rc Foster IG # 0.02 10e3/ul Normal 0.00-0.03 [facility] Comment on above: Performed By: #### C BC #### [facility] [address] [place] [address] Dr. Rc Foster IG % 0.4 % Normal 0.0-0.5 [facility] Comment on above: Performed By: #### C BC #### [facility] [address] [place] [address] Dr. Rc Foster LYMPH # 2.1 103/ul Normal 1.2-3.8 [facility] Comment on above: Performed By: #### C BC #### [facility] [address] [place] [address] Dr. Rc Foster Lymphocytes/100 WBC (Bld) 37.1 % Normal 20.5-60.0 [facility] Comment on above: Performed By: #### C BC #### [facility] [address] [place] [address] Dr. Rc Foster MANUAL DIFF REQ NO Normal [facility] Comment on above: Performed By: #### C BC #### [facility] [address] [place] [address] Dr. Rc Foster MCH (RBC) [Entitic mass] 28.7 pg Normal 26.7-34.0 [facility] Comment on above: Performed By: #### C BC #### [facility] [address] [place] [address] Dr. Rc Foster MCHC (RBC) [Mass/Vol] 32.9 g/dL Normal 29.9-35.2 [facility] Comment on above: Performed By: #### C BC #### [facility] [address] [place] [address] Dr. Rc Foster MCV (RBC) [Entitic vol] 87.1 fL Normal 81.0-99.0 [facility] Comment on above: Performed By: #### C BC #### [facility] [address] [place] [address] Dr. Rc Foster MONO # 0.4 103/ul Normal 0.3-0.8 [facility] Comment on above: Performed By: #### C BC #### [facility] [address] [place] [address] Dr. Rc Fosetr Monocytes/100 WBC (Bld) 6.7 % Normal 1.7-12.0 [facility] Comment on above: Performed By: #### C BC #### [facility] [address] [place] [address] Dr. Rc Foster NEUT # 2.9 103/ul Normal 1.4-6.5 [facility] Comment on above: Performed By: #### C BC #### [facility] [address] [place], [place] [id number] Dr. Rc Foster Neutrophils/100 WBC (Bld) 50.5 % Normal 43.0-75.0 [facility] Comment on above: Performed By: #### C BC #### [facility] [address] [place] [address] Dr. Rc Foster Platelet mean volume (Bld) [Entitic vol] 9.7 fL Normal 9.5-13.5 [facility] Comment on above: Performed By: #### C BC #### [facility] [address] [place] [address] Dr. Rc oFster PLT 189 103/ul Normal 150-450 [facility] Comment on above: Performed By: #### C BC #### [facility] [address] [place] [address] Dr. Rc Foster RBC 4.57 106/ul Normal 4.20-5.40 [facility] Comment on above: Performed By: #### C BC #### [facility] [address] [place] [address] Dr. Rc Foster WBC 5.7 103/ul Normal 4.0-11.0 [facility] Comment on above: Performed By: #### C BC #### [facility] [address] [place] [address] Dr. Rc Foster GLYCOHEMOGLOBIN A1Con 2021 ADA RECOMMENDATION SEE BELOW Normal [facility] Comment on above: Result Comment: ADA RECOMMENDED LIMIT 4.0 - 6.0 ADA THERAPEUTIC TARGET < 7.0 ACTION SUGGESTED > 7.0 Performed By: #### A 1C #### [facility] [address] [place] [address] Dr. Rc Foster Glucose [Mass/Vol] 143 mg/dL Normal [facility] Comment on above: Performed By: #### A 1C #### [facility] [address] [place] [address] Dr. Rc Foster HbA1c (Bld) [Mass fraction] 6.6 % Critically high 4.5-6.2 [facility] Comment on above: Performed By: #### A 1C #### [facility] [address] [place], [place] [address] Dr. Rc Foster LIPID PROFILEon 03-30-2022 CHOL-HDL RATIO NORM SEE BELOW Normal [facility] Comment on above: Result Comment: 3.3 - 4.4 LOW RISK 4.4 - 7.1 AVERAGE RISK 7.1 - 11.0 MODERATE RISK >11.0 HIGH RISK Performed By: #### T SH, CMP, LIPID ####[facility] [address] [place], [place] [address]Gh. Rc Foster Cholesterol [Mass/Vol] 184 mg/dL Normal <=200 [facility] Comment on above: Performed By: #### T SH, CMP, LIPID ####[facility] [address] [place], [place] [address]Dw. Rc Foster Cholesterol in HDL [Mass/Vol] 42 mg/dL Normal 40-60 [facility] Comment on above: Performed By: #### T SH, CMP, LIPID ####[facility] [address] [address]DrRodger Fosetr Cholesterol in LDL [Mass/Vol] 87.0 mg/dL Normal [facility] Comment on above: Performed By: #### T SH, CMP, LIPID ####[facility] [address] [place], [place] [address]Sl. Rc Foster Cholesterol.total/Chol esterol in HDL [Mass ratio] 4.4 {ratio} Normal [facility] Comment on above: Performed By: #### T SH, CMP, LIPID ####[facility] [address] [place], [place] [address]Eo. Rc Foster HDL NORMAL > or = 60 mg/dl - LO W CARDIOVASCULAR RISK <40 mg/dl - HIGH CARDIOVASCULAR RISK Normal [facility] Comment on above: Performed By: #### T SH, CMP, LIPID ####[facility] [address] [id number]. Rc Foster LDL CALC NORMAL SEE BELOW Normal [facility] Comment on above: Result Comment: <100 mg/dl OPTIMAL 100 - 129 mg/dl NEAR OR ABOVE OPTIMAL 130 - 159 mg/dl BORDERLINE HIGH 160 - 189 mg/dl HIGH >190 mg/dl VERY HIGH Performed By: #### T SH, CMP, LIPID ####[facility] [address] [id number]. Rc Foster Triglyceride [Mass/Vol] 275 mg/dL Critically high <=150 [facility] Comment on above: Performed By: #### T SH, CMP, LIPID ####[facility] [address] [address]Dr. Rc Foster VLDL CALC 55.0 mg/dL Normal [facility] Comment on above: Performed By: #### T SH, CMP, LIPID ####[facility] [address] [address]Dr. Rc Foster PROF 14(COMP METB)on 022 Albumin [Mass/Vol] 4.0 g/dL Normal 3.4-5.0 [facility] Comment on above: Performed By: #### T SH, CMP, LIPID ####[facility] [address] [address]Dr. Rc Foster Albumin/Globulin [Mass ratio] 1.1 {ratio} Normal [facility] Comment on above: Performed By: #### T SH, CMP, LIPID ####[facility] [address] [address]Dr. Rc Foster ALP [Catalytic activity/Vol] 71 U/L Normal 46-116 [facility] Comment on above: Performed By: #### T SH, CMP, LIPID ####[facility] [address] [address]Dr. Rc Foster ALT [Catalytic activity/Vol] 29 U/L Normal 14-59 [facility] Comment on above: Performed By: #### T SH, CMP, LIPID ####[facility] [address] [address]Dr. Rc Foster Anion gap [Moles/Vol] 13.2 mmol/L Normal [facility] Comment on above: Performed By: #### T SH, CMP, LIPID ####[facility] [address] [address]Dr. Rc Foster AST [Catalytic activity/Vol] 17 U/L Normal 15-37 [facility] Comment on above: Performed By: #### T SH, CMP, LIPID ####[facility] [address] [address]Dr. Rc Foster Bilirubin [Mass/Vol] 0.6 mg/dL Normal 0.2-1.0 [facility] Comment on above: Performed By: #### T SH, CMP, LIPID ####[facility] [address] [address]Dr. Rc Foster Calcium [Mass/Vol] 9.0 mg/dL Normal 8.5-10.1 [facility] Comment on above: Performed By: #### T SH, CMP, LIPID ####[facility] [address] [address]Dr. Rc Foster Chloride [Moles/Vol] 102 mmol/L Normal 98-107 [facility] Comment on above: Performed By: #### T SH, CMP, LIPID ####[facility] [address] [address]Dr. Rc Foster CO2 [Moles/Vol] 27.3 mmol/L Normal 21.0-32.0 [facility] Comment on above: Performed By: #### T SH, CMP, LIPID ####[facility] [address] [address]Dr. Rc Foster Creatinine [Mass/Vol] 1.00 mg/dL Normal 0.55-1.02 [facility] Comment on above: Performed By: #### T SH, CMP, LIPID ####[facility] [address] [address]Dr. Rc Foster EGFR-AF FAROESE >60 Normal >=60 [facility] Comment on above: Performed By: #### T SH, CMP, LIPID ####[facility] [address] [address]Dr. Rc Foster EGFR-NON AF FAROESE 56 mL/min/1.73m2 Critically low >=60 [facility] Comment on above: Performed By: #### T SH, CMP, LIPID ####[facility] [address] [id number]. Rc Foster Globulin (S) [Mass/Vol] 3.5 g/dL Normal [facility] Comment on above: Performed By: #### T SH, CMP, LIPID ####[facility] [address] [address]Dr. Rc Foster Glucose [Mass/Vol] 159 mg/dL Critically high 74-106 [facility] Comment on above: Performed By: #### T SH, CMP, LIPID ####[facility] [address] [id number]. Rc Foster Potassium [Moles/Vol] 4.5 mmol/L Normal 3.5-5.1 [facility] Comment on above: Performed By: #### T SH, CMP, LIPID ####[facility] [address] [address]Dr. Rc Foster Protein [Mass/Vol] 7.5 g/dL Normal 6.4-8.2 [facility] Comment on above: Performed By: #### T SH, CMP, LIPID ####[facility] [address] [address]Dr. Rc Foster Sodium [Moles/Vol] 138 mmol/L Normal 136-145 [facility] Comment on above: Performed By: #### T SH, CMP, LIPID ####[facility] [address] [address]Dr. Rc Foster Urea nitrogen [Mass/Vol] 23.0 mg/dL Critically high 7.0-18.0 [facility] Comment on above: Performed By: #### T SH, CMP, LIPID ####[facility] [address] [address]Dr. Rc Foster Urea nitrogen/Creatinine [Mass ratio] 23.0 mg/mg Normal [facility] Comment on above: Performed By: #### T SH, CMP, LIPID ####[facility] [address] [address]Dr. Rc Foster TSHon 03-30-2022 TSH 2.807 uIU/mL Normal 0.358-3.740 [facility] Comment on above: Performed By: #### T SH, CMP, LIPID ####[facility] [address] [place], [place] [address]NkRodger ESQUEDA THYROIDon 03-30-2022 US THYROID EXAMINATION: US [...] by: BERNY CANO Date: 2022-03-30 11:[address] [facility] MG MAMM SCREEN 3D LEX CADon 03-19-2022 MG MAMM SCREEN 3D LEX CAD Patient: CARROLL HARDEN Exam Date: 03/19/2022 : 1960 Gender:F Ordering : DR ROBERT CRUZ D.O. Admission #: [id number] Family : Order #: [id number] CLICK HERE TO VIEW EXAM RADIOLOGY REPORT [...] Treatments None Family Cancers None LOCATION: [facility] BREAST COMPOSITION: Scattered areas fibroglandular density. FINDINGS: [...] M.D. on 03/23/2022 at 11:59 Normal [facility] CBC AUTO DIFFon 11-27-2021 BASO # 0.0 103/ul Normal 0.0-0.1 [facility] Comment on above: Performed By: #### C BC #### [facility] [address] [place] [address] Dr. Rc Foster Basophils/100 WBC (Bld) 0.7 % Normal 0.2-2.0 [facility] Comment on above: Performed By: #### C BC #### [facility] [address] [place] [address] Dr. Rc Foster EO # 0.6 103/ul Normal 0.0-0.7 [facility] Comment on above: Performed By: #### C BC #### [facility] [address] [place] [address] Dr. Rc Foster Eosinophils/100 WBC (Bld) 10.3 % Critically high 0.9-7.0 [facility] Comment on above: Performed By: #### C BC #### [facility] [address] [place] [address] Dr. Rc Foster Erythrocyte distribution width (RBC) [Ratio] 12.4 % Normal 11.0-15.0 [facility] Comment on above: Performed By: #### C BC #### [facility] [address] [place] [address] Dr. Rc Foster Hematocrit (Bld) [Volume fraction] 41.2 % Normal 36.0-48.0 [facility] Comment on above: Performed By: #### C BC #### [facility] [address] [place] [address] Dr. Rc Foster Hemoglobin (Bld) [Mass/Vol] 13.4 g/dL Normal 12.0-16.0 [facility] Comment on above: Performed By: #### C BC #### [facility] [address] [place] [address] Dr. Rc Foster IG # 0.01 10e3/ul Normal 0.00-0.03 [facility] Comment on above: Performed By: #### C BC #### [facility] [address] [place] [address] Dr. Rc Foster IG % 0.2 % Normal 0.0-0.5 [facility] Comment on above: Performed By: #### C BC #### [facility] [address] [place] [address] Dr. cR Foster LYMPH # 2.3 103/ul Normal 1.2-3.8 [facility] Comment on above: Performed By: #### C BC #### [facility] [address] [place] [address] Dr. Rc Foster Lymphocytes/100 WBC (Bld) 40.6 % Normal 20.5-60.0 [facility] Comment on above: Performed By: #### C BC #### [facility] [address] [place] [address] Dr. Rc Foster MANUAL DIFF REQ NO Normal [facility] Comment on above: Performed By: #### C BC #### [facility] [address] [place] [address] Dr. Rc Foster MCH (RBC) [Entitic mass] 28.8 pg Normal 26.7-34.0 [facility] Comment on above: Performed By: #### C BC #### [facility] [address] [place] [address] Dr. Rc Foster MCHC (RBC) [Mass/Vol] 32.5 g/dL Normal 29.9-35.2 [facility] Comment on above: Performed By: #### C BC #### [facility] [address] [place] [address] Dr. Rc Foster MCV (RBC) [Entitic vol] 88.6 fL Normal 81.0-99.0 [facility] Comment on above: Performed By: #### C BC #### [facility] [address] [place] [address] Dr. Rc Foster MONO # 0.4 103/ul Normal 0.3-0.8 [facility] Comment on above: Performed By: #### C BC #### [facility] [address] [place] [address] Dr. Rc Foster Monocytes/100 WBC (Bld) 7.6 % Normal 1.7-12.0 [facility] Comment on above: Performed By: #### C BC #### [facility] [address] [place] [address] Dr. Rc Foster NEUT # 2.3 103/ul Normal 1.4-6.5 [facility] Comment on above: Performed By: #### C BC #### [facility] [address] [place] [address] Dr. Rc Foster Neutrophils/100 WBC (Bld) 40.6 % Critically low 43.0-75.0 [facility] Comment on above: Performed By: #### C BC #### [facility] [address] [place] [address] Dr. Rc Foster Platelet mean volume (Bld) [Entitic vol] 9.6 fL Normal 9.5-13.5 [facility] Comment on above: Performed By: #### C BC #### [facility] [address] [place] [address] Dr. Rc Foster PLT 194 103/ul Normal 150-450 [facility] Comment on above: Performed By: #### C BC #### [facility] [address] [place] [address] Dr. Rc Foster RBC 4.65 106/ul Normal 4.20-5.40 [facility] Comment on above: Performed By: #### C BC #### [facility] [address] [place] [address] Dr. Rc Foster WBC 5.5 103/ul Normal 4.0-11.0 [facility] Comment on above: Performed By: #### C BC #### [facility] [address] [place] [address] Dr. Rc Foster GLYCOHEMOGLOBIN A1Con 2021 ADA RECOMMENDATION SEE BELOW Normal [facility] Comment on above: Result Comment: ADA RECOMMENDED LIMIT 4.0 - 6.0 ADA THERAPEUTIC TARGET < 7.0 ACTION SUGGESTED > 7.0 Performed By: #### A 1C #### [facility] [address] [place] [address] Dr. Rc Foster Glucose [Mass/Vol] 131 mg/dL Normal [facility] Comment on above: Performed By: #### A 1C #### [facility] [address] [place] [address] Dr. Rc Foster HbA1c (Bld) [Mass fraction] 6.2 % Normal 4.5-6.2 [facility] Comment on above: Performed By: #### A 1C #### [facility] [address] [place] [address] Dr. Rc Foster PROF CHEM 8 (BAS METB)on Anion gap [Moles/Vol] 15.2 mmol/L Normal [facility] Comment on above: Performed By: #### T MARY JANE, BMP #### [facility] [address] [place] [address] Dr. Rc Foster Calcium [Mass/Vol] 8.5 mg/dL Normal 8.5-10.1 [facility] Comment on above: Performed By: #### T MARY JANE, BMP #### [facility] [address] [place] [address] Dr. Rc Foster Chloride [Moles/Vol] 100 mmol/L Normal 98-107 [facility] Comment on above: Performed By: #### T MARY JANE, BMP #### [facility] [address] [place] [address] Dr. Rc Foster CO2 [Moles/Vol] 26.6 mmol/L Normal 21.0-32.0 [facility] Comment on above: Performed By: #### T SH, BMP #### [facility] [address] [address] [address] Rc Foster Creatinine [Mass/Vol] 1.15 mg/dL Critically high 0.55-1.02 [facility] Comment on above: Performed By: #### T SH, BMP #### [facility] [address] [address] [address] Rc Foster EGFR-AF FAROESE 58 mL/min/1.73m2 Critically low >=60 [facility] Comment on above: Performed By: #### T SH, BMP #### [facility] [address] [place] [address] Dr. Rc Foster EGFR-NON AF FAROESE 48 mL/min/1.73m2 Critically low >=60 [facility] Comment on above: Performed By: #### T SH, BMP #### [facility] [address] [place] [address] Dr. Rc Foster Glucose [Mass/Vol] 211 mg/dL Critically high 74-106 [facility] Comment on above: Performed By: #### T SH, BMP #### [facility] [address] [place] [address] Dr. Rc Foster Potassium [Moles/Vol] 4.8 mmol/L Normal 3.5-5.1 [facility] Comment on above: Performed By: #### T SH, BMP #### [facility] [address] [place] [address] Dr. Rc Foster Sodium [Moles/Vol] 137 mmol/L Normal 136-145 [facility] Comment on above: Performed By: #### T SH, BMP #### [facility] [address] [place] [address] Dr. Rc Foster Urea nitrogen [Mass/Vol] 33.0 mg/dL Critically high 7.0-18.0 [facility] Comment on above: Performed By: #### T SH, BMP #### [facility] [address] [address] [address] Rc Foster Urea nitrogen/Creatinine [Mass ratio] 28.7 mg/mg Normal [facility] Comment on above: Performed By: #### T MARY JANE, BMP #### [facility] [address] [id number] Rc Foster TSHon 11-27-2021 TSH 0.744 uIU/mL Normal 0.358-3.740 [facility] Comment on above: Performed By: #### T MARY JANE, BMP #### [facility] [address] [address] [address] Rc Foster SYMPTOMATIC COVID-19 ANTIGEN on 10-28-2021 EUA Statement SEE BELOW Normal [facility] Comment on above: Result Comment: This test [...] revoked sooner. Performed By: #### C VDAGS ####[facility] [address] [place] [id number]. Rc Foster SARS-CoV-2 (COVID-19) RNA YRAED+probe Ql (Unsp spec) Negative Normal NEGATIVE [facility] Comment on above: Performed By: #### C VDAGS ####[facility] [id number] [place] [id number]. cR Foster GLYCOHEMOGLOBIN A1Con 2021 ADA RECOMMENDATION SEE BELOW Normal [facility] Comment on above: Result Comment: ADA RECOMMENDED LIMIT 4.0 - 6.0 ADA THERAPEUTIC TARGET < 7.0 ACTION SUGGESTED > 7.0 Performed By: #### A 1C #### [facility] [address] [address] [address] Rc Foster Glucose [Mass/Vol] 128 mg/dL Normal [facility] Comment on above: Performed By: #### A 1C #### [facility] [address] [address] [address] Rc Foster HbA1c (Bld) [Mass fraction] 6.1 % Normal 4.5-6.2 [facility] Comment on above: Performed By: #### A 1C #### [facility] [address] [address] [address] Rc Foster Discharge CCD Assessmenton 0 09-06-2020 Discharge CCD Assessment [facility] Patient: CARROLL HARDEN [address] [place] [address] MR#: [id number] DISCHARGE CCD ASSESSMENT : 58 Service Date: 09/06/20 1018 Discharge CCD Assessment Assessment Patient discharged home to continue exercises, pain medication, and wound care Electronically Signed eSign Date and Time Melyssa Flores 09/06/20 1019 Tera Hernandez MD Normal [facility] GLUCOSE METERon 09-06-2020 Glucose [Mass/Vol] 126 mg/dL High 70-99 [facility] Comment on above: Order Comment: CONSE RVATION Result Comment: Fast ing GLUCOSE reference range has been updated per (ADA) [place] [employer]'s recommendation. 07/18/2018 Performed By: #### L 500.28472 ####Test performed at: [place] [address] Glucose [Mass/Vol] 205 mg/dL High 70-99 [facility] Comment on above: Order Comment: CONSE RVATION Result Comment: Fast ing GLUCOSE reference range has been updated per (ADA) [place] [employer]'s recommendation. 07/18/2018 Insulin per sl scale Performed By: #### L 500.84805 #### Test performed at: [place] [address] [place] [address] Internal Med Progress Noteon 09-06-2020 Internal Med Progress Note [facility] Patient: CARROLL HARDEN [address] [id number] MR#: [id number] PROGRESS NOTE - Internal Medicine : 58 [...] RES, Katarzy na MD 09/06/20 1134 Normal [facility] Orthopedic Progress Noteon 0 09-06-2020 Orthopedic Progress Note [facility] Patient: CARROLL HARDEN [address] [place] [address] MR#: [id number] PROGRESS NOTE - Orthopedic : 58 Service [...] RN 09/06/20 1022 Tera Hernandez MD Normal [facility] Anesthesia Noteon 09-05-2020 Anesthesia Note [facility] Patient: CARROLL HARDEN [address] [place] [address] MR#: [id number] ANESTHESIA NOTE : Service Date: 09/05/20 0812 [...] Signed eSign Date and Time Krystian Akers APRN-ULTRASOUND APPLICATIONS SPECIALIST 09/05/20 0813 Chu Glez MD Normal [facility] BASIC MET PANELon 09-05-2020 Anion gap [Moles/Vol] 12 mmol/L Normal 6-18 [facility] Comment on above: Performed By: #### L 500.98060, L500.12311 #### Test performed at: [place] [address] Calcium [Mass/Vol] 8.7 mg/dL Normal 8.5-10.1 [facility] Comment on above: Performed By: #### L 500.54552, L500.43629 #### Test performed at: [address] [address] Chloride [Moles/Vol] 101 mmol/L Normal 98-107 [facility] Comment on above: Performed By: #### L 500.60981, L500.58431 #### Test performed at: [address] [address] CO2 [Moles/Vol] 25 mmol/L Normal 21-32 [facility] Comment on above: Performed By: #### L 500.59998, L500.56418 #### Test performed at: [address] [address] Creatinine [Mass/Vol] 1.020 mg/dL Normal 0.550-1.020 [facility] Comment on above: Performed By: #### L 500.73975, L500.08559 #### Test performed at: [address] [address] Glucose [Mass/Vol] 264 mg/dL High 70-99 [facility] Comment on above: Result Comment: Fast ing GLUCOSE reference range has been updated per (ADA) [place] Diabetes [employer]'s recommendation. 07/18/2018 Performed By: #### L 500.35434, L500.38720 #### Test performed at: [address] [address] OSM 289 mosm/kg Normal 270-300 [facility] Comment on above: Performed By: #### L 500.90830, L500.08628 #### Test performed at: [address] [address] Potassium [Moles/Vol] 4.5 mmol/L Normal 3.5-5.1 [facility] Comment on above: Performed By: #### L 500.09605, L500.16690 #### Test performed at: [address] [address] Sodium [Moles/Vol] 134 mmol/L Low 136-145 [facility] Comment on above: Performed By: #### L 500.98825, L500.61461 #### Test performed at: [address] [address] Urea nitrogen [Mass/Vol] 17 mg/dL Normal 7-18 [facility] Comment on above: Performed By: #### L 500.93223, L500.64155 #### Test performed at: [place] [address] GFR ESTIMATEon 09-05-2020 IF AMER > 60 Normal > 60 [facility] Comment on above: Result Comment: eGFR (Estimated GFR) Units of measure:mL/min/1.73 meters sq. *CALCULATION REVISED 02/11/2015;IDMS-traceable MDRD equation eGFR is derived from the reexpressed MDRD Study equation using the following parameters: serum creatinine, age, gender and race. An eGFR<60 mL/min/1.73m2 for >3 months is consistent with chronic kidney disease. Refer to KDOQI guidelines for clinical interpretation. Performed By: #### L 500.10975, L500.29576 #### Test performed at: [place] [address] IF non-AFR AMER 55 Low > 60 [facility] Comment on above: Performed By: #### L 500.27760, L500.50963 #### Test performed at: [place] [address] GLUCOSE METERon 09-05-2020 Glucose [Mass/Vol] 177 mg/dL High 70-99 [facility] Comment on above: Order Comment: CONSE RVATION Result Comment: Fast ing GLUCOSE reference range has been updated per (ADA) [place] Diabetes [employer]'s recommendation. 07/18/2018 Performed By: #### L 500.81877 #### Test performed at: [address] [address] Glucose [Mass/Vol] 310 mg/dL High 70-99 [facility] Comment on above: Result Comment: Fast ing GLUCOSE reference range has been updated per (ADA) [place] Diabetes [employer]'s recommendation. 07/18/2018 Insulin per sl scale Performed By: #### L 500.28184 ####Test performed at: [address] [address] Glucose [Mass/Vol] 281 mg/dL High 70-99 [facility] Comment on above: Result Comment: Fast ing GLUCOSE reference range has been updated per (ADA) [place] Diabetes [employer]'s recommendation. 07/18/2018 Insulin per sl scale Performed By: #### L 500.36372 #### Test performed at: [address] [address] Glucose [Mass/Vol] 105 mg/dL High 70-99 [facility] Comment on above: Result Comment: Fast ing GLUCOSE reference range has been updated per (ADA) [place] Diabetes [employer]'s recommendation. 07/18/2018 Performed By: #### L 500.97578 #### Test performed at: [address] [address] HGB AND HCTon 09-05-2020 Hematocrit (Bld) [Volume fraction] 37.5 % Normal 36.0-48.0 [facility] Comment on above: Performed By: #### L 200.75070 #### Test performed at: [address] [address] Hemoglobin (Bld) [Mass/Vol] 12.5 g/dL Normal 12.0-15.0 [facility] Comment on above: Performed By: #### L 200.26815 #### Test performed at: [address] [address] Internal Med Progress Noteon 09-05-2020 Internal Med Progress Note [facility] Patient: CARROLL HARDEN [address], [place] [id number] MR#: [id number] PROGRESS NOTE - Internal Medicine : 58 [...] input. Disc (more content not included)... Normal [facility] OT Therapy Recommendationson 09-05-2020 OT Therapy Recommendations [facility] Patient: CARROLL HARDEN [address] [place] [address] MR#: [id number] OT THERAPY RECOMMENDATIONS : 58 Service Date: 09/05/201510 Therapy Recommendations Therapy Recommendations Recommendations OT evaluation completed. OT recommends HOME with FAmily assist. No further acute OT needs are indicated at this time. Electronically Signed eSign Date and Time Trupti Rojas OT 09/05/20 151 Normal [facility] Orthopedic Progress Noteon 0 09-05-2020 Orthopedic Progress Note [facility] Patient: CARROLL HARDEN [address] [place], [place] [address] MR#: [id number] PROGRESS NOTE - Orthopedic : 58 Service [...] Tests 09/05 09/05 09/05 09/04 1058 [id number] Chemistry Sodium (136 - 145 mmol/L) 134 [...] BILLRUBEN 09/05/20 1429 Tera Hernandez MD Normal [facility] PT Therapy Recommendationson 09-05-2020 PT Therapy Recommendations [facility] Patient: CARROLL HARDEN [address] [place] [address] MR#: [id number] PT THERAPY RECOMMENDATIONS : 58 Service Date: 09/05/20913 Therapy Recommendations Therapy Recommendations Recommendations PT eval complete. No further acute PT needs. Recommend d/c home /c family assist. Electronically Signed eSign Date and Time Tiffanie Bashir PT 09/05/20 0914 Normal [facility] z OT Inpatient Discharge Not juan 09-05-2020 z OT Inpatient Discharge Note [facility] Patient: CARROLL HARDEN [address] [place] [id number] MR#: [id number] OT INPATIENT DISCHARGE NOTE : 58 Service [...] and Time BobTrupti OT 09/05/20 1534 Normal [facility] z OT Inpatient Evaluationon 09-05-2020 z OT Inpatient Evaluation [facility] Patient: CARROLL HARDEN [address] [address] MR#: [id number] OT INPATIENT EVALUATION : 58 Inpatient OT HPI Date of Service 09/05/20 Time In: 1401 Time Out: 1412 Total Treatment Time (Mins) 11 Visit Reason LATERAL RECESS STENOSIS W/ RADICULOPATHY Surgery Type/Date s/p L L4-5 LAmi, foraminotomy, decompression on 09.04.20/ Lumbar spine precautions Referral Date 09/04/20 Tx Diagnosis: LOW BACK PAIN Insurance Name [facility] POS [facility] [place] Pt is a left hand [...] 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 Objective Precautions Lumbar [...] Excellent Nader (more content not included)... Normal [facility] z PT Inpatient Discharge Not juan 09-05-2020 z PT Inpatient Discharge Note [facility] Patient: CARROLL HARDEN [address] [place], [place] [address] MR#: [id number] PT INPATIENT DISCHARGE NOTE : 58 Service [...] Time Tiffanie Bashir PT 09/05/20 1139 Normal [facility] z PT Inpatient Evaluationon 09-05-2020 z PT Inpatient Evaluation [facility] Patient: CARROLL HARDEN [address] [place], [place] [address] MR#: [id number] PT INPATIENT EVALUATION : 58 Service Date: 09/05/20 0928 Inpatient PT HPI Date of Service 09/05/20 Time In: 0845 Time Out: 0907 Total Treatment Time (Mins) 22 Room Number 624 Visit Reason LATERAL RECESS STENOSIS W/ RADICULOPATHY Surgery Type: L L4-5 lami, foraminotomy, decompression Surgery Date: 09/04/20 Referral Date 09/04/20 Tx Diagnosis: LOW BACK PAIN Insurance Name [facility] POS O Hospital Course 60 y.o female at [facility] for above sx d/t lateral recess stenosis [...] posture. 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 Pt agreeable to use of her cane [...] Time Tiffanie Bashir PT 09/05/20 1502 Normal [facility] GLUCOSE METERon 09-04-2020 Glucose [Mass/Vol] 94 mg/dL Normal 70-99 [facility] Comment on above: Result Comment: Fast ing GLUCOSE reference range has been updated per (ADA) [place] [employer]'s recommendation. 07/18/2018 Performed By: #### L 500.61873 ####Test performed at: [place] [address] Internal Medicine Consultati onon 09-04-2020 Internal Medicine Consultation [facility] Patient: CARROLL HARDEN [address] [place] [address] MR#: [id number] CONSULTATION - Internal Medicine : 58 Service [...] of Systems (more content not included)... Normal [facility] OPERATIVE REPORTon OPERATIVE REPORT NAME: CARROLL HARDEN MR#: [id number] SURGEON: Tera Hernandez MD DATE OF SURGERY: [...] there were no complications. TERA HERNANDEZ MD [facility] PT NAME: CARROLL HARDEN MR#: [id number] [address] [place] [address] ACCT: [id number] : 58 OPERATIVE REPORT JFS/MODL/[id number] E/S: Tera Hernandez MD 09/18/20 1207 Electronically Signed [facility] PT NAME: CARROLL HARDEN MR#: [id number] [address] [place] [address] ACCT: [id number] : 58 OPERATIVE REPORT Normal [facility] Primary Residenton Primary Resident [facility] Pt Name: CARROLL HARDEN MR#: [id number] [address] [place] [address] ACCT: [id number] [place] [id number] : 58 Service Date: 09/04/20 1603 Primary Resident/Call Primary Resident: [id number] Panchito After Hours Call: [phone] Red Team Electronically Signed eSign Date and Time PanchitoAna norton RES 09/16/20 1521 Normal [facility] LUMBAR SPINE 2 OR 3 VIEWSon 09-03-2020 LUMBAR SPINE 2 OR 3 VIEWS STUDY: LUMBAR SPINE 2 OR 3 VIEWS; 09/04/2020 2:57 pm INDICATION: LEFT L4-L5 LAMINECTOMY,FORAMINOT JOSE ANGEL,DECOMPRESSION. COMPARISON: None. ACCESSION NUMBER(S): [id number] ORDERING CLINICIAN: Tera Hernandez FINDINGS: Intraoperative fluoroscopy of the lumbar spine demonstrates surgical instruments posterior to L5. IMPRESSION: As above Normal [facility] CHEST PA/AP & LATERALon CHEST PA/AP & LATERAL STUDY: CHEST PA/AP LATERAL; 08/25/2020 11:00 am INDICATION: SOB/PAT. COMPARISON: None. ACCESSION NUMBER(S): [id number] ORDERING CLINICIAN: Madelyn Leslie FINDINGS: The lungs are clear without pleural effusion. Normal heart size, mediastinum, elzbieta, and pulmonary vasculature. IMPRESSION: No active disease in the chest. Normal [facility] CONSULTATION REPORTon 2020 CONSULTATION REPORT NAME: CARROLL HARDEN MR#: [id number] DIGITAL STRATEGIST SENIOR MANAGER: Madelyn Leslie MD DATE OF CONSULTATION: 08/25/2020 [...] pulse ox is 98% on room air. [facility] PT NAME: CARROLL HARDEN MR#: [id number] [address] [place] [address] ACCT: [id number] : 58 CONSULTATION HEENT: Atraumatic head. 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 IMPRESSION: 1. Preop clearance for L4-L5 disk [...] courtesy of this consultation. MADELYN LESLIE MD MS/MODL/[id number] E/S: Madelyn Leslie MD 08/26/20 1750 Electronically Signed [facility] PT NAME: CARROLL HARDEN MR#: [id number] [address] [place] [address] ACCT: [id number] : 58 CONSULTATION Normal [facility] LUMB SP COMP W FLEX/EXT 6 VW S>on 08-08-2020 LUMB SP COMP W FLEX/EXT 6 VWS> STUDY: LUMB SP COMP W FLEX/EXT 6 VWS>; 08/08/2020 9:43 am INDICATION: BACK PAIN. COMPARISON: No available comparisons. ACCESSION NUMBER(S): [id number] ORDERING CLINICIAN: Tera Hernandez TECHNIQUE: 6 views [...] L5-S1 level. No evidence of instability.. Normal [facility] XR SHLDR >/=3V AP/RUSH AP/OTH R RTon [...] Jul 03 2018 10:17AM EST [id number] [facility] ANES Holly 06-20-2018 ANES POST HNO ID: [id number] Author: Rohit Velarde Service: Anesthesiology Author Type: [...] 20, 2018 TIME: 2:38 PM PAGER/CONTACT #: [facility] ANES PREOPon 06-20-2018 ANES PREOP HNO ID: [id number] Author: Rohit Velarde Service: Anesthesiology Author Type: [...] (XYLOCAINE) 0.1-0.2 mL INTRADERMAL PRN Isreal Kim) Hooker lactated ringers infusion 5-30 mL/hr INTRAVENOUS CONTINUOUS [...] June 20, 2018 TIME: 9:35 AM CSN: [id number] [facility] BRIEF OP NOTon 06-20-2018 BRIEF OP NOT HNO ID: [id number] Author: Kusum Francisco Service: Orthopaedic Surgery Author Type: Resident Type: Brief Op Note Filed: 06/20/2018 5:49 PM Note Text: BRIEF OP NOTE LOG ID: [id number] Surgery/Procedure Date: 06/20/2018 Incision/Procedure Start Time: 11:18 AM Incision Close/Procedure End Time: 1:17 PM Surgeon(s)/Procedural ist(s) and Handling Tech(s): Surgeon(s) and Role: * Jenna Lentz - [...] 20, 2018 TIME: 5:49 PM PAGER/CONTACT #: [facility] CASE MANAGEMon 06-20-2018 CASE MANAGEM HNO ID: [id number] Author: May Herrera (Sw) Service: Care Management Author Type: Migratory Worker Type: Care Mgt Progress Note Filed: 06/20/2018 [...] is pcp summary of care sent via [facility] () Nurse to provide discharge instructions. TRANSPORTATION ARRANGEMENTS: Car Spouse ADDITIONAL CONTACT RESOURCES: Needs Prior to Discharge: Ready for Discharge Appointments for Next 45 Days Date Time Provider Location Dept Phone 07/03/2018 10:00 AM CAROLA BAPTISTE AT [phone] 07/03/2018 10:30 AM GABRIEL CANTU) LATOSHA AT [phone] 07/31/2018 2:15 PM JENNA LENTZ AT [phone] Pt to be discharged home to follow up as above. SIGNATURE: DARIO Saini PATIENT NAME: Carroll Harden DATE: June 20, 2018 TIME: 5:31 PM PAGER/CONTACT #: [phone] [facility] CASE MGT INIT [facility] 2018 CASE MGT INIT [facility] HNO ID: [id number] Author: May Herrera (Sw) Service: Care Management Author Type: Migratory Worker Type: Care Mgt Initial Assessment Filed: 06/20/2018 [...] None Has the Patient Been in a Prison Facility in the Past 30 days? 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 O.Therapy recommend home. Spouse visiting at bedside and will transport pt home later today.Further discharge needs not anticipated.SW/TCC to follow to assist with plans for discharge. SIGNATURE: DARIO Saini PATIENT NAME: Carroll Harden DATE: June 20, 2018 TIME: 5:27 PM PAGER/CONTACT #: [phone] [facility] CONSULTon 06-20-2018 CONSULT HNO ID: [id number] Author: Dulce Green Service: General Internal Medicine [...] Disp: Rfl: 06/19/2018 at 0630 rizatriptan (MAXALT GAMING INVESTIGATOR) 10 mg disintegrating tablet DISSOLVE 1 TABLET [...] the care of your patient. Dulce Green APRN.LEGISLATIVE AIDE June 20, 2018 4:34 PM Normal [facility] NURSING PROGon 06-20-2018 Protein mass conc HNO ID: [id number] Author: Fela (Rn) Jacqueline, FLETCHER Service: (none) [...] at bedside. 1720. Dr. Blake and Dulce DIETETICS TEACHER at bedside, plan is to stay for [...] note was completed by: Fela Phillips RN [facility] Protein mass conc HNO ID: [id number] Author: Wendy ValenciaRn) Kj, FLETCHER Service: Nursing [...] note was completed by: Wendy Underwood RN [facility] OPERATIVE NOon 06-20-2018 OPERATIVE NO HNO ID: [id number] Author: Jenna Lentz Service: Orthopaedic Surgery Author Type: Physician Type: Operative Report Filed: 06/20/2018 1:25 PM Note Text: [place] [id number] [place] OPERATIVE REPORT NAME: [facility] #: [id number] DATE: 06/20/2018 (11:18am-1:17pm) AGE: 58 SURGEON 1: Jenna Lentz M.D. HEAD WOOD GRINDER: 1. Augie Coates M.D. 2. Kusum Prasad M.D. 3. Mundo Pablo OPERATION: Right total shoulder arthroplasty, biceps tenodesis. ANESTHESIA: General anesthesia with regional interscalene nerve block for postoperative pain control. PREOPERATIVE DIAGNOSIS: Right shoulder primary glenohumeral osteoarthritis. POSTOPERATIVE DIAGNOSIS: Right shoulder primary glenohumeral osteoarthritis, biceps tendinopathy. OPERATIVE INDICATIONS: The patient is a 58 year oldeym-jnhm-ozc right-hand dominant white female who has a [...] rotator interval stitch was then passed in jyouwz-ww-trdhd fashion with a #2 Ticron suture and tied down to close the lateral rotator interval and set the osteotomy superiorly. The two #2 Fiberwire sutures coming out of the bicipital groove were then sequentially passed in a jkzzqn-ck-fsdds fashion medial to the horizontal mattress and [...] Hospital ED 06-20-2018 PT ED HNO ID: [id number] Author: Cindy (Rn) FLETCHER Griffin Service: (none) [...] Signed By: Cindy Griffin RN In Department: [facility] Normal [facility] THERAPY NTon 06-20-2018 THERAPY NT HNO ID: [id number] Author: Abi ValenciaOt) Alan Service: Occupational Therapy Author Type: Occupational Therapist Type: Therapy (PT/OT/Speech/Resp) Filed: 06/20/2018 4:59 PM Note Text: Occupational Therapy Evaluation SERVICE DATE: 06/20/2018 SERVICE TIME: 1550 to 1640 ROOM: [address] Recommended Discharge Disposition: Home Anticipated Discharge [...] living (ADL) Interventions Provided: Evaluation;Therapeuti c Exercise (88174);Self [facility] Management (15108) $ Evaluation-Low (06799) Billed Units: 1 unit Therapeutic Exercise (46130) Treatment Minutes: 10 1 unit Skilled Intervention(s): Education in Self [facility] Management (19503) Treatment Minutes: 28 2 units Skilled Intervention(s): [...] Environment Patient Lives With: Spouse Assistance Available: test consultant Number Of Stairs To Bed/Bath: 0 Equipment [...] DATE: June 20, 2018 TIME: 4:54 PM [facility] XR SHOULDER 2V AP/TRUE AP RT on 06-20-2018 XR SHOULDER 2V AP/TRUE AP RT * * *Final Report* * * DATE OF EXAM: Jun 20 2018 1:45PM [facility] 5255 - XR SHOULDER 2V AP/TRUE AP [...] Jun 20 2018 2:04PM EST [id number] [facility] NURSING PROGon 06-09-2018 Protein mass conc HNO ID: [id number] Author: Ivana (Rn) FLETCHER Heller Service: Nursing [...] 2018 11:10 AM Addendum 06/15/18 EKG IN [facility] FINAL Ivana Heller RN June 15, 2018 4:39 PM [facility] Type and SCR (30D)on 019 ABO/RH(D) Positive [facility] HOSPon 04-28-2018 HOSP Patient:Adalberto Harden MRN: Height:5' 2 (1.575 m) Weight:186 lb (84.369 kg) Outpatient Medications as of 06/20/18: calcium phosphate dibas/vit D3 (VITAMIN D, WITH CALCIUM, ORAL) docusate sodium (COLACE) 100 mg capsule aspirin, enteric coated (ECOTRIN LOW STRENGTH) 81 mg EC tablet oxyCODONE-acetaminoph en (PERCOCET) 5-325 mg tablet rizatriptan (MAXALT GAMING INVESTIGATOR) 10 mg disintegrating tablet mupirocin (BACTROBAN) 2 [...] 46.0 36.0 Progress Notes (RADIO CT SCAN [facility]): RT Lillian, Tech 06/07/2018 [...] RT Lillian June 07, 2018 9:54 AM [facility] Vital Signs Date Time Vital Sign Value Performing Clinician Facility 04-29-2023 09:00-0500 Body height 154.94 cm Robert Ball Other [facility] Other 04-29-2023 09:00-0500 Body mass index (BMI) [Ratio] 33.14 kg/m2 Robert Ball Other [facility] Other 04-29-2023 09:00-0500 Body weight 79.56 kg Robert Ball Other [facility] Other 04-29-2023 09:00-0500 Diastolic blood pressure 89 mm[Hg] Robert Ball Other [facility] Other 04-29-2023 09:00-0500 Respiratory rate 12 /min Robert Ball Other [facility] Other 04-29-2023 09:00-0500 Systolic blood pressure 155 mm[Hg] Robert Ball Other [facility] Other 12-20-2022 13:45-0400 Body height 154.94 cm Robert Ball Other [facility] Other 12-20-2022 13:45-0400 Body mass index (BMI) [Ratio] 34.12 kg/m2 Robert Ball Other [facility] Other 12-20-2022 13:45-0400 Body weight 81.92 kg Robert Ball Other [facility] Other 12-20-2022 13:45-0400 Diastolic blood pressure 96 mm[Hg] Robert Ball Other [facility] Other 12-20-2022 13:45-0400 Respiratory rate 12 /min Robert Ball Other [facility] Other 12-20-2022 13:45-0400 Systolic blood pressure 179 mm[Hg] Robert Ball Other [facility] Other 08-04-2022 09:45-0400 Body height 154.94 cm Robert Ball Other [facility] Other 08-04-2022 09:45-0400 Body mass index (BMI) [Ratio] 33.33 kg/m2 Robert Ball Other [facility] Other 08-04-2022 09:45-0400 Body weight 80.02 kg Robert Ball Other [facility] Other 08-04-2022 09:45-0400 Diastolic blood pressure 77 mm[Hg] Robert Ball Other [facility] Other 08-04-2022 09:45-0400 Respiratory rate 12 /min Robert Ball Other [facility] Other 08-04-2022 09:45-0400 Systolic blood pressure 128 mm[Hg] Robert Ball Other [facility] Other Encounters Encounter Date Encounter Type Care Provider Facility Start: 05-13-2023 End: 05-13-2023 ambulatory Robert Ball Other [facility] Other Start: 05-13-2023 Telephone encounter Robert Ball [facility] Start: 05-09-2023 End: 05-09-2023 ambulatory Robert Ball Other [facility] Other Start: 05-09-2023 Telephone encounter Robert Ball [facility] Start: 05-04-2023 End: 05-04-2023 ambulatory Robert Ball Other [facility] Other Start: 05-04-2023 Telephone encounter Robert Ball [facility] Start: 05-02-2023 End: 05-02-2023 ambulatory Robert Ball Other [facility] Other Start: 05-02-2023 Telephone encounter Robert Ball [facility] Start: 04-29-2023 End: 04-29-2023 ambulatory Robert Ball Other [facility] Other Start: 04-29-2023 Office outpatient vi sit 15 minutes Robert Ball [facility] Start: 04-04-2023 End: 04-04-2023 ambulatory Robert Ball Other [facility] Other Start: 04-04-2023 Telephone encounter Robert Ball [facility] Start: 01-24-2023 End: 01-24-2023 ambulatory Robert Ball Other [facility] Other Start: 01-24-2023 Telephone encounter Robert Ball [facility] Start: 12-23-2022 End: 12-23-2022 ambulatory Robert Ball Other [facility] Other Start: 12-23-2022 Telephone encounter Robert Ball [facility] Start: 12-20-2022 End: 12-20-2022 ambulatory Robert Ball Other [facility] Other Start: 12-20-2022 Office outpatient vi sit 15 minutes Robert Hamilton [facility] Start: 12-17-2022 End: 12-17-2022 ambulatory Robert Cruz Other [facility] Other Start: 12-17-2022 Telephone encounter Robert Hamilton [facility] Start: 11-08-2022 End: 11-08-2022 ambulatory Robert Cruz Other [facility] Other Start: 11-08-2022 Telephone encounter Robert Cruz [facility] Start: 10-22-2022 End: 10-22-2022 ambulatory Robert Cruz Other [facility] Other Start: 10-22-2022 Telephone encounter Robert Cruz [facility] Start: 10-13-2022 End: 10-13-2022 ambulatory Robert Cruz Other [facility] Other Start: 10-13-2022 Telephone encounter Robert Cruz [facility] Start: 09-27-2022 End: 09-27-2022 ambulatory Robert Cruz Other [facility] Other Start: 09-27-2022 Telephone encounter Robert Hamilton [facility] Start: 08-23-2022 End: 08-24-[address] RISHI PARKER Facility:[facility] Start: 08-04-2022 End: 08-04-2022 ambulatory Robert Cruz Other [facility] Other Start: 08-04-2022 Office outpatient vi sit 25 minutes Robert Cruz [facility] Start: 04-03-2022 Encounter for genera l adult medical examination without abnormal findings DR ROBERT CRUZ [facility] Start: 03-30-2022 End: 03-31-[address] [...] Start: 07-03-2018 End: 07-03-2018 [facility] Start: 06-20-2018 End: 06-20-2018 Evaluation and management of inpatient [facility] Procedures Date Procedure Procedure Detail Performing Clinician Start: 06-07-2018 Antibody screen JENNA NOA GUY Payers Date Payer Category Payer [facility] [id number] 2019 Unknown [id number] 1960 Self-pay [id number] 1960 Unknown [id number] 2.16.84 [id number] 1959 Unknown [id number] 2.16.84 [id number] 1959 Unknown [id number] 2.16.84 [id number] 1959 Unknown [id number] 2.16.84 [id number] 1959 Unknown [id number] 2.16.84 [id number] 1959 Unknown [id number] 2.16.84 [id number] Unknown [id number] 2.16.84 [id number] Social History Date Type Detail Facility Sex Assigned At [facility] Other Clinical Notes 08-04-2022 to 05-09-2023 Note Date & Type Note Facility 05-09-2023 Evaluation note Encounter Date Diagnosis Assessment Notes Apr, Intractable chronic migraine without aura and without status migrainosus (ICD-10 - G43.719) [facility] Other 01-08-2024 Evaluation note* Encounter Date Diagnosis Assessment Notes Treatment Notes Treatment Clinical Notes Apr, Intractable chronic migraine without aura and without status migrainosus (ICD-10 - G43.719) [facility] Other 01-05-2024 Evaluation note* Encounter Date Diagnosis [...] Begin Amitriptyline Stop Tizanidine. MRI cervical spine [facility] Other 08-31-2023 Evaluation note* Encounter Date Diagnosis Assessment Notes Treatment Notes Treatment Clinical Notes Nov, Primary hypertension (ICD-10 - I10) [facility] Other 08-28-2023 Evaluation note* Encounter Date Diagnosis Assessment Notes Treatment Notes Treatment Clinical Notes Nov, Adverse effect of smooth muscle relaxant, subsequent encounter (ICD-10 - T44.3X5D) Avoid combination of Klonopin and Zanaflex when scheduled educational aide. May want to cut back on Zanaflex. [...] Pain in left shoulder (ICD-10 - M25.512) [facility] Other 06-30-2023 Evaluation note* Encounter Date Diagnosis Assessment Notes Treatment Notes Treatment Clinical Notes Sep, Type 2 diabetes mellitus with hyperglycemia, without long-term current use of insulin (ICD-10 - E11.65) [facility] Other 06-05-2023 Evaluation note* Encounter Date Diagnosis Assessment Notes Treatment Notes Treatment Clinical Notes Sep, Candidiasis, intertriginous (ICD-10 - B37.2) [facility] Other 04-12-2023 Evaluation note* Encounter Date Diagnosis [...] use, the patient reduces the risk for [place], CVA, HTN, cardiac dysrhythmias and sudden cardiac [...] Jul, Other specified hypothyroidism (ICD-10 - E03.8) [facility] Other Evaluation noteNo InformationNortCodeHS Other History general Narrative - Reported* Type [...] CATHETERIZATION 2016 Hospitalization History SEE SURIGCAL HX [facility] Other History general Narrative - Reported* Type [...] arthroscopy 10/2022 Hospitalization History SEE SURIGCAL HX [facility] Other Reason for referral (narrative)* Reason Evaluation of right knee pain Diagnosis 1 Strain of right knee , subsequent encounter (K28.507V) Referral Organization [facility] Referring Provider First Name Robert Referring Provider Last Name Hamilton Referring Provider Specialty Internal Nh dicjuan Referred Provider Rishi Parker Jr Referred Provider Specialty Orthopedic S urgery Referral Priority Routine [facility] Other Reason for referral (narrative)* Reason Referral for neck pa in Diagnosis 1 Cervicalgia (M54.2) Diagnosis 2 Cervical spondylosis (M47.812) Referral Organization [facility] Referring Provider First Name Robert Referring Provider Last Name Hamilton Referring Provider Specialty Internal Nh dicine Referred Organization [facility] Referred Address [address], [place],[address] Referred Provider Specialty Pain Medicin e Referral Priority Routine General Notes Patient has hx of ce rvical discectomy and fusion and presented w/ persistent neck pain, which radiated upwards causing a headache. She is being referred for treatment with the pain clinic. Clinical Notes Include MRI [facility] Other Summary Purpose Family History No Family History Records FoundNo Family History Records FoundNo Family History Records FoundNo Family History Records Found Advance Directives No Advanced Directives Records FoundNo Advanced Directives Records FoundNo Advanced Directives Records FoundNo Advanced Directives Records Found Additional Source Comments INFORMATION SOURCE (unrecogn ized section and content) DATE CREATED AUTHOR 06/20/2018 [facility] DATE CREATED AUTHOR [facility]IZ AT[facility] DATE CREATED AUTHOR AUTHOR'S ORGANIZ ATION 09/18/2020 [facility] DATE CREATED AUTHOR AUTHOR'S ORGANIZ ATION 08/27/2022 [...] BE BASED ON THE PRIMARY CLINICAL RECORDS. [facility] [employer] [facility]. provides no warranty or guarantee of the accuracy or completeness of information in this document.
--- NOTE | 2023-05-23 12:34 | P.CN_ITS ---
Consult Note: HPI Data of Consult Patient: known to practice within the last 3 years Consult date: 05/23/23 Requesting Physician: Miriam Barron MD Primary Care Provider: Robert Cruz DO Consult Narrative Reason for consult: Neck, bilateral posterior occipital pain Narrative: 63yof who presents for assessment. Persistent pain that radiates from bilateral posterior occiput to forehead. Imaging reviewed, which shows history of cervical fusion with facet arthropathy noted at C2-3, 3-4. Engaged in provider directed home exercises for >6 weeks, with minimal benefit. Has tried various medications for pain, with limited relief. Denies adverse med side effects. cc:: CC: Miriam Barron MD Review of Systems ROS Status of ROS 10 or more systems reviewed and unremark able except as noted in history and below Meds Home Medications and Allergies Home Medications Medication Instructions Recorded Confirmed Type atenolol 50 mg tablet 50 mg PO DAILY 09/28/22 09/28/22 History citalopram 40 mg tablet (Celexa) 40 mg PO DAILY 09/28/22 09/28/22 History clonazepam 0.5 mg tablet 0.5 mg PO .3 tabs 09/28/22 09/28/22 History fluconazole 100 mg tablet 100 mg PO Q24H 09/28/22 09/28/22 History glimepiride 4 mg tablet 4 mg PO DAILY 09/28/22 09/28/22 History levothyroxine 125 mcg tablet 125 mcg PO DAILY 09/28/22 09/28/22 History (Synthroid) metformin 500 mg tablet 500 mg PO BID 09/28/22 09/28/22 History pravastatin 40 mg tablet 40 mg PO DAILY 09/28/22 09/28/22 History tizanidine 4 mg tablet 4 mg PO BID PRN muscle spasticity 09/28/22 05/18/23 History clonazepam 1 mg tablet (Klonopin) 1.5 mg PO DAILY 05/18/23 05/18/23 History rizatriptan 10 mg tablet (Maxalt) 10 mg PO Q2H PRN migraine headache 05/18/23 05/18/23 History Allergies Allergy/AdvReac Type Severity Reaction Status Date / Time hydromorphone [From Dilaudid] Allergy Intermediate Verified 09/28/22 20:42 iodine Allergy Intermediate Verified 09/28/22 20:42 latex Allergy Intermediate Verified 09/28/22 20:42 meperidine [From Demerol] Allergy Intermediate Verified 09/28/22 20:42 sumatriptan [From Imitrex] Allergy Intermediate Verified 09/28/22 20:42 Exam Narrative Exam Narrative: Psych-alert and oriented x 3.? Attentive and appropriate, constitutionally normal, displays normal mood and affect per situation.? There are no obvious deficits in memory, reasoning, or intellect.? Skin-no obvious rashes, bruising, or erythema noted to the patient's area of pain. Extremities-upper extremities are warm with minimal edema and palpable pulses. Cervical- tenderness to palpation noted in the cervical spine and paraspinal musculature.?Tenderness over the bilateral occipital groove. Pain is elicited with extension, and lateral rotation of the cervical spine.? Range of motion is slightly diminished due to pain. Facet loading maneuvers are positive bilaterally.? Coordination remains intact.? Gait remains non-antalgic. Assessment and Plan Assessment and Plan (1) Bilateral occipital neuralgia: (2) Cervical spondylosis: (3) Cervical postlaminectomy syndrome: Plan 63yof who presents for assessment. Failed conservative measures, as noted. Imaging reviewed, as noted. She would like to proceed with previously discussed bilateral occipital nerve blocks. Also discussed with her that given her cervical spondylosis and facet changes noted above the level of her cervical fusion, she would be good candidate for cervical medial branch blocks if the occipital block fails to provide reprieve. She expressed understanding. Medications reviewed, no changes. Follow up in 1 month. Procedure: Bilateral occipital nerve block Medications: Bupivacaine 0.25% 1cc, kenalog 20mg x2 I explained the details of the procedure to the patient including the risks, benefits and alternatives. We had an informed discussion and the patient yu milesed understanding and signed the consent form. All questions were answered appropriately.? A time out was performed.The patient was identified, the chart was reviewed, and all allergies were confirmed.? Laterality was conducted and marked.? The appropriate side of the occiput was sterilely prepped times three using alcohol. The occipital artery was palpated, then a gigi was placed two centimeters lateral to the greater occipital protuberance on the left side.? A 27 gauge 1 1/2 inch needle was used to inject the above medications after negative aspiration for? heme, CSF, or other bodily fluid.? The needle was then fanned in the direction of the greater occipital nerve.? The same procedure was then completed on the right side. Vital signs were monitored before, during, and after the procedure and remained stable at all points.? The patient was discharged with no complications.
== END 2023-05-23 11:21 | disposition home or self-care (01) ==
LOC: PM 11:22
PROVIDERS: PCP Internal Medicine; Visit Provider Anesthesiology
DX: M54.81 Occipital neuralgia (principal); M47.812 Spondylosis without myelopathy or radiculopathy, cervical region; M96.1 Postlaminectomy syndrome, not elsewhere classified
CPT/HCPCS: 64405; J0665; J3301

== ENCOUNTER 2023-06-06 06:32 | Day surgery (SDC) | payer BC, SELFPAY ==
--- OUTSIDE RECORDS SUMMARY | 2023-06-06 06:35 | XMS_ITS | CCD ---
Author Name Unknown Address [address] [place] [address] Organization [facility] Care Team Providers Care Electrolysist Name Role Phone JENNA LENTZ Admitting Unavailable [...] Attending Unavailable BALL, DR NINO Consulting Unavailable ZIEBER, DR BERNY Mccabe Consulting Unavailable [...] YESSENIA Consulting Unavailable YESSENIA WATSON Admitting Unavailable HOY ., DR MAZARIEGOS Attending Unavailable HOY ., DR MAZARIEGOS Consulting Unavailable PRISCILLA ., DR MAZARIEGOS Admitting Unavailable HAMILTON, DR NINO Primary Care Unavailable Anderson HENLEY, Miriam Stephenson Attending Unavailable Allergies Allergy Classification Reported Allergen(s) Allergy Type Date of Onset Reaction(s) Facility (2 sources) Contrast media; Translations: [CONTRAST DYE] Propensity to adverse reactions to drug (disorder) 09-30-19 11 [facility] Other [place] Repository (2 sources) HYDROmorphone; Translations: [HYDROMORPHONE (BULK)] Drug Allergy 08-17-19 17 [facility] Repository (20 sources) Latex; Translations: [LATEX] Propensity to adverse reactions to drug (disorder) 09-30-19 11 Unknown [facility] Repository (2 sources) Meperidine; Translations: [MEPERIDINE (PF)] Drug Allergy 09-30-19 11 [facility] Repository (2 sources) Povidone-Iodine; Translations: [POVIDONE-IODINE] Drug Allergy 10-21-19 17 [facility] Repository (2 sources) SUMAtriptan; Translations: [SUMATRIPTAN SUCCINATE] Drug Allergy 09-30-19 11 [facility] Repository (2 sources) INFLUENZA VACCINE TRI-SP 09-10; Translations: [INFLUENZA VACCINE TRI-SP 09-10] Propensity to adverse reactions to drug (disorder) 09-30-19 11 [facility] Repository (3 sources) DHE; Translations: [DHE] Propensity to adverse reactions to drug (disorder) 10-24-19 13 [facility] Repository (17 sources) HYDROmorphone Drug Allergy Unknown [facility] Other (18 sources) Iodine; Translations: [iodine] Drug Allergy 10-24-19 13 Unknown [facility] Repository (17 sources) Meperidine Drug Allergy Unknown [facility] Other (17 sources) SUMAtriptan Drug Allergy Unknown [facility] Other (17 sources) Fluad Drug allergy Unknown [facility] Other (17 sources) DHEA Drug allergy Unknown [facility] Other (1 source) HYDROmorphone Drug Allergy 10-24-19 13 [facility] Repository (1 source) Meperidine Drug Allergy 10-24-19 13 [facility] Repository (1 source) Plasmin Drug Allergy 10-24-19 13 [facility] Repository (12 sources) influenza A virus (H1N1) antigen / influenza A virus (H3N2) antigen / influenza B virus antigen Drug Allergy 11-21-19 14 Comment:FLU VACCINE [employer] [facility] AGELON ? Other (12 sources) Contraindication to Flu Injection Propensity to adverse reactions 03-07-20 14 Comment:advers e rxn/side effects [facility] Other (3 sources) patient allergy list reviewed by nurse or physicia Propensity to adverse reactions 12-22-19 Comment:Done [facility] Other Medications Current Medications Medication Drug Class(es) Dates Sig (Normalized) Sig (Original) amitriptyline hydrochloride 10 mg oral tablet (7 sources) Tricyclic Antidepressant Start: 04-29-2023 take 1-2 tablets by mouth once at bedtime Amitriptyline HCl 10 MG 1 - 2 tablets at bedtime Orally q HS for 30 days Apr, Active Amitriptyline HC l 10 MG TAKE 1 TO 2 TABLETS BY MOUTH AT BEDTIME FOR 30 DAYS for 90 Active atenolol 50 mg oral tablet (17 sources) beta-Adrenergic Maria Esther Start: 08-04-2022 take 1 tablet by mouth every twenty-four hours Atenolol 50 MG 1 tablet Orally Once a day for 90 days Jul, Active citalopram 40 mg oral tablet (14 sources) Serotonin Reuptake Inhibitor Start: 10-22-2022 take 1 tablet by mouth every twenty-four hours Citalopram Hydrobromide 40 MG 1 tablet at bedtime Orally Once a day for 90 days Sep, Active clonazePAM 0.5 mg oral tablet (15 sources) Benzodiazepine Start: 06-01-2023 take 3 tablets by mouth once daily at bedtime clonazePAM 0.5 MG TAKE 3 TABLETS BY MOUTH AT BEDTIME Orally Once a day for 90 days May, Active Start: 12-28-2022 take 3 tablets by mo [facility] once daily at bedtime clonazePAM 0.5 MG TAKE 3 TABLETS BY MOUTH AT BEDTIME Orally Once a day for 30 days Dec, Active Start: 09-30-2022 take 3 tablets by mo [facility] at bedtime clonazePAM 0.5 MG TAKE 3 TABLETS BY MOUTH AT BEDTIME for 30 days Sep, Active fluconazole 100 mg oral tablet (16 sources) Azole Antifungal Start: 09-14-2022 take 1 tablet by mouth every twenty-four hours Fluconazole 100 MG 1 tablet Orally daily for 7 days August, Active glimepiride 4 mg oral tablet (17 sources) Sulfonylurea take 1 tablet by mouth every twenty-four hours Glimepiride 4 MG 1 tablet with breakfast or the first main meal of the day Orally Once a day for 90 days Active levothyroxine sodium 0.125 mg oral tablet (17 sources) l-Thyroxine Start: 07-26-2022 take 1 tablet by mouth once daily in the morning Levothyroxine Sodium 125 MCG 1 tablet in the morning on an empty stomach Orally Once a day for 90 days Jul, Active Start: 07-26-2022 take 1 tablet by fredrick th once daily in the morning Levothyroxine Sodium 125 MCG 1 tablet in the morning on an empty stomach Orally Once a day Jul, Active metFORMIN hydrochloride 500 mg oral tablet (15 sources) Biguanide Start: 10-13-2022 take 1 tablet by mouth twice daily metFORMIN HCl 500 MG 1 tablet with a meal Orally two times daily for 90 days Sep, Active naratriptan 2.5 mg oral tablet (7 sources) Serotonin-1b and Serotonin-1d Receptor Agonist Start: 04-29-2023 Naratriptan HCl 2.5 MG 1 tablet Orally Once a day PRN headache, may repeat after 2 hours for 30 days Apr, Active olmesartan medoxomil 20 mg oral tablet (10 sources) Angiotensin 2 Receptor Maria Esther Start: 12-23-2022 take 1 tablet by mouth every twenty-four hours Olmesartan Medoxomil 20 MG 1 tablet Orally Once a day for 30 days Nov, Active pravastatin sodium 20 mg oral tablet (17 sources) HMG-CoA Reductase Inhibitor Start: 08-04-2022 take 1 tablet by mouth every twenty-four hours Pravastatin Sodium 20 MG 1 tablet Orally Once a day for 90 days Jul, Active predniSONE 20 mg oral tablet (3 sources) Start: 05-09-2023 predniSONE 20 MG 1 tablet Orally tid w/ food x 1 day then bid w/ food x 2 days then qd w/ food x 2 days for 5 days Apr, Active rizatriptan 10 mg disintegrating oral tablet (7 sources) Serotonin-1b and Serotonin-1d Receptor Agonist Start: 11-04-2022 take 1 tablet by mouth every two hours as needed for headache Maxalt-BALL WORKER 10 MG 1 tablet Orally PRN headache, may repeat q 2 hours as needed, max 30mg/24 hours for 90 days Aware of allergy - patient has taken in past with no problems, please fill 13 Oct, 2022 Active Rizatriptan Sae oate 10 MG TAKE ONE TABLET BY MOUTH NEEDED FOR HEADACHE. MAY REPEAT EVERY TWO HOURS NEEDED, MAX 20 MG/24 HOURS Orally Once a day prn headache for 90 days Active tiZANidine 4 mg oral tablet (10 sources) Central alpha-2 Adrenergic Agonist take 0.5-1 tablets by mouth once daily at bedtime tiZANidine HCl 4 MG TAKE 1/2 TO 1 TABLET BY MOUTH EVERY DAY AT BEDTIME for 90 Active Completed/Discontinued Medications Medication Drug Class(es) Dates Sig (Normalized) Sig (Original) cloNIDine hydrochloride 0.1 mg oral tablet (17 sources) Central alpha-2 Adrenergic Agonist Start: 08-04-2022 take 1 tablet by mouth twice daily as needed cloNIDine HCl 0.1 MG 1 tablet Orally twice daily Jul, Not-Taking/PRN Problems Active Problems Problem Classification Problem Date Documented Date Episodic/Chronic Anxiety disorders (17 sources) Generalized anxiety disorder; Translations: [Generalized anxiety disorder] Chronic Complications of surgical procedures or medical care (1 source) Postprocedural hypothyroidism; Translations: [POSTPROCEDURAL HYPOTHYROIDISM] Onset: 2 Chronic Diabetes mellitus with complications (20 sources) Type 2 diabetes mellitus; Translations: [Type 2 diabetes mellitus with hyperglycemia] Onset: 2 Chronic Diseases of white blood cells (17 sources) Leukopenia; Translations: [Decreased white blood cell count, unspecified] Chronic Disorders of lipid metabolism (19 sources) Hypercholesterolemia; Translations: [Pure hypercholesterolemia, unspecified] Chronic Diverticulosis and diverticulitis (17 sources) Diverticular disease of colon; Translations: [Diverticulosis of intestine, part unspecified, without perforation or abscess without bleeding] Chronic E Codes: Adverse effects of medical drugs (1 source) Adverse effect of other parasympatholytics [anticholinergics and antimuscarinics] and spasmolytics, subsequent encounter Episodic Esophageal disorders (17 sources) Gastro-esophageal reflux disease with esophagitis; Translations: [Gastroesophageal reflux disease with esophagitis without hemorrhage] Chronic Essential hypertension (20 sources) Essential hypertension; Translations: [Essential (primary) hypertension] Onset: 2 Chronic Headache; including migraine (12 sources) Chronic intractable migraine without aura; Translations: [...] KNEE INIT] Onset: 3 Episodic Mood disorders (17 sources) Recurrent major depression in full remission; Translations: [Major depressive disorder, recurrent, in full remission] Chronic Mycoses (1 source) Candidiasis of skin and nail Episodic Nonmalignant breast conditions (17 sources) Lump in left breast; Translations: [Unspecified [...] Episodic Other nutritional; endocrine; and metabolic disorders (9 sources) Body mass index 30+ - obesity; Translations: [Body mass index (BMI) 33.0-33.9, adult] Chronic Other nutritional; endocrine; and metabolic disorders (9 sources) Obesity caused by energy imbalance; Translations: [Other obesity due to excess calories] Chronic Residual codes; unclassified (17 sources) Obstructive sleep apnea syndrome; Translations: [Obstructive [...] Date: 2022-08-24 07:19 Normal [facility] CBC AUTO DIFFon 03-30-2022 BASO # 0.0 103/ul Normal 0.0-0.1 [facility] Comment on above: Performed By: #### C BC #### [facility] [address] [address] [address] Rc Foster Basophils/100 WBC (Bld) 0.4 % Normal 0.2-2.0 [facility] Comment on above: Performed By: #### C BC #### [facility] [address] [address] [address] Rc Foster EO # 0.3 103/ul Normal 0.0-0.7 [facility] Comment on above: Performed By: #### C BC #### [facility] [address] [address] [address] Rc Foster Eosinophils/100 WBC (Bld) 4.9 % Normal 0.9-7.0 [facility] Comment on above: Performed By: #### C BC #### [facility] [address] [address] [address] Rc Foster Erythrocyte distribution width (RBC) [Ratio] 12.2 % Normal 11.0-15.0 [facility] Comment on above: Performed By: #### C BC #### [facility] [address] [address] [address] Rc Foster Hematocrit (Bld) [Volume fraction] 39.8 % Normal 36.0-48.0 [facility] Comment on above: Performed By: #### C BC #### [facility] [address] [address] [address] Rc Foster Hemoglobin (Bld) [Mass/Vol] 13.1 g/dL Normal 12.0-16.0 [facility] Comment on above: Performed By: #### C BC #### [facility] [address] [address] [address] Rc Foster IG # 0.02 10e3/ul Normal 0.00-0.03 [facility] Comment on above: Performed By: #### C BC #### [facility] [address] [place] [address] Dr. Rc Foster IG % 0.4 % Normal 0.0-0.5 [facility] Comment on above: Performed By: #### C BC #### [facility] [address] [place] [address] Dr. Rc Foster LYMPH # 2.1 103/ul Normal 1.2-3.8 [facility] Comment on above: Performed By: #### C BC #### [facility] [address] [place] [address] Dr. Rc Foster Lymphocytes/100 WBC (Bld) 37.1 % Normal 20.5-60.0 [facility] Comment on above: Performed By: #### C BC #### [facility] [address] [place] [address] Dr. Rc Foster MANUAL DIFF REQ NO Normal [facility] Comment on above: Performed By: #### C BC #### [facility] [address] [place] [address] Dr. Rc Foster MCH (RBC) [Entitic mass] 28.7 pg Normal 26.7-34.0 [facility] Comment on above: Performed By: #### C BC #### [facility] [address] [place] [address] Dr. Rc Foster MCHC (RBC) [Mass/Vol] 32.9 g/dL Normal 29.9-35.2 [facility] Comment on above: Performed By: #### C BC #### [facility] [address] [place] [address] Dr. Rc Foster MCV (RBC) [Entitic vol] 87.1 fL Normal 81.0-99.0 [facility] Comment on above: Performed By: #### C BC #### [facility] [address] [place] [address] Dr. Rc Foster MONO # 0.4 103/ul Normal 0.3-0.8 [facility] Comment on above: Performed By: #### C BC #### [facility] [address] [place] [address] Dr. Rc Foster Monocytes/100 WBC (Bld) 6.7 % Normal 1.7-12.0 [facility] Comment on above: Performed By: #### C BC #### [facility] [address] [place] [address] Dr. Rc Foster NEUT # 2.9 103/ul Normal 1.4-6.5 [facility] Comment on above: Performed By: #### C BC #### [facility] [address] [place] [address] Dr. Rc Foster Neutrophils/100 WBC (Bld) 50.5 % Normal 43.0-75.0 [facility] Comment on above: Performed By: #### C BC #### [facility] [address] [place] [address] Dr. Rc Foster Platelet mean volume (Bld) [Entitic vol] 9.7 fL Normal 9.5-13.5 [facility] Comment on above: Performed By: #### C BC #### [facility] [address] [place] [address] Dr. Rc Foster PLT 189 103/ul Normal 150-450 [facility] Comment on above: Performed By: #### C BC #### [facility] [address] [place] [address] Dr. Rc Foster RBC 4.57 106/ul Normal 4.20-5.40 [facility] Comment on above: Performed By: #### C BC #### [facility] [address] [place] [address] Dr. Rc Foster WBC 5.7 103/ul Normal 4.0-11.0 [facility] Comment on above: Performed By: #### C BC #### [facility] [address] [place] [address] Dr. Rc Foster GLYCOHEMOGLOBIN A1Con 2021 ADA RECOMMENDATION SEE BELOW Normal [facility] Comment on above: Result Comment: ADA RECOMMENDED LIMIT 4.0 - 6.0 ADA THERAPEUTIC TARGET < 7.0 ACTION SUGGESTED > 7.0 Performed By: #### A 1C #### [facility] [address] [address] [address] Rc Foster Glucose [Mass/Vol] 143 mg/dL Normal [facility] Comment on above: Performed By: #### A 1C #### [facility] [address] [address] [address] Rc Foster HbA1c (Bld) [Mass fraction] 6.6 % Critically high 4.5-6.2 [facility] Comment on above: Performed By: #### A 1C #### [facility] [address] [address] [address] Rc Foster LIPID PROFILEon 03-30-2022 CHOL-HDL RATIO NORM SEE BELOW Normal [facility] Comment on above: Result Comment: 3.3 - 4.4 LOW RISK 4.4 - 7.1 AVERAGE RISK 7.1 - 11.0 MODERATE RISK >11.0 HIGH RISK Performed By: #### T SH, CMP, LIPID ####[facility] [address] [address]Dr. Rc Foster Cholesterol [Mass/Vol] 184 mg/dL Normal <=200 [facility] [place] Comment on above: Performed By: #### T SH, CMP, LIPID ####[facility] [address] [address]Dr. Rc Foster Cholesterol in HDL [Mass/Vol] 42 mg/dL Normal 40-60 [facility] Comment on above: Performed By: #### T SH, CMP, LIPID ####[facility] [address] [address]Dr. Rc Foster Cholesterol in LDL [Mass/Vol] 87.0 mg/dL Normal [facility] Comment on above: Performed By: #### T SH, CMP, LIPID ####[facility] [address] [address]Dr. Rc Foster Cholesterol.total/Chol esterol in HDL [Mass ratio] 4.4 {ratio} Normal [facility] Comment on above: Performed By: #### T SH, CMP, LIPID ####[facility] [address] [id number]. Rc Foster HDL NORMAL > or = 60 mg/dl - LO W CARDIOVASCULAR RISK <40 mg/dl - HIGH CARDIOVASCULAR RISK Normal [facility] Comment on above: Performed By: #### T SH, CMP, LIPID ####[facility] [address] [address]Dr. Rc Foster LDL CALC NORMAL SEE BELOW Normal [facility] Comment on above: Result Comment: <100 mg/dl OPTIMAL 100 - 129 mg/dl NEAR OR ABOVE OPTIMAL 130 - 159 mg/dl BORDERLINE HIGH 160 - 189 mg/dl HIGH >190 mg/dl VERY HIGH Performed By: #### T MARY JANE, CMP, LIPID ####[facility] [address] [address]Dr. Rc Foster Triglyceride [Mass/Vol] 275 mg/dL Critically high <=150 [facility] Comment on above: Performed By: #### T MARY JANE, CMP, LIPID ####[facility] [address] [address]Dr. Rc Foster VLDL CALC 55.0 mg/dL Normal [facility] Comment on above: Performed By: #### T MARY JANE, CMP, LIPID ####[facility] [address] [address]Dr. Rc Foster PROF 14(COMP METB)on 022 Albumin [Mass/Vol] 4.0 g/dL Normal 3.4-5.0 [facility] Comment on above: Performed By: #### T MARY JANE, CMP, LIPID ####[facility] [address] [address]Dr. Rc Foster Albumin/Globulin [Mass ratio] 1.1 {ratio} Normal [facility] Comment on above: Performed By: #### T SH, CMP, LIPID ####[facility] [address] [address]Dr. Rc Foster ALP [Catalytic activity/Vol] 71 U/L Normal 46-116 [facility] Comment on above: Performed By: #### T SH, CMP, LIPID ####[facility] [address] [address]Dr. cR Foster ALT [Catalytic activity/Vol] 29 U/L Normal 14-59 [facility] Comment on above: Performed By: #### T SH, CMP, LIPID ####[facility] [address] [address]Dr. Rc Foster Anion gap [Moles/Vol] 13.2 mmol/L Normal [facility] [place] Comment on above: Performed By: #### T SH, CMP, LIPID ####[facility] [address] [address]Dr. Rc Foster AST [Catalytic activity/Vol] 17 U/L Normal 15-37 [facility] Comment on above: Performed By: #### T MARY JANE, CMP, LIPID ####[facility] [address] [place], [place] [address]Dr. Rc Foster Bilirubin [Mass/Vol] 0.6 mg/dL Normal 0.2-1.0 [facility] Comment on above: Performed By: #### T MARY JANE, CMP, LIPID ####[facility] [address] [address]Dr. Rc Foster Calcium [Mass/Vol] 9.0 mg/dL Normal 8.5-10.1 [facility] Comment on above: Performed By: #### T SH, CMP, LIPID ####[facility] [address] [address]Dr. Rc Foster Chloride [Moles/Vol] 102 mmol/L Normal 98-107 [facility] Comment on above: Performed By: #### T SH, CMP, LIPID ####[facility] [address] [address]Dr. Rc Foster CO2 [Moles/Vol] 27.3 mmol/L Normal 21.0-32.0 [facility] Comment on above: Performed By: #### T SH, CMP, LIPID ####[facility] [address] [address]Dr. Rc Foster Creatinine [Mass/Vol] 1.00 mg/dL Normal 0.55-1.02 [facility] Comment on above: Performed By: #### T SH, CMP, LIPID ####[facility] [address] [address]Dr. Rc Foster EGFR-AF CAMEROONIAN >60 Normal >=60 [facility] Comment on above: Performed By: #### T SH, CMP, LIPID ####[facility] [address] [id number]. Rc Foster EGFR-NON AF CAMEROONIAN 56 mL/min/1.73m2 Critically low >=60 [facility] Comment on above: Performed By: #### T SH, CMP, LIPID ####[facility] [address] [address]Dr. Rc Foster Globulin (S) [Mass/Vol] 3.5 g/dL Normal [facility] Comment on above: Performed By: #### T SH, CMP, LIPID ####[facility] [address] [address]Dr. Rc Foster Glucose [Mass/Vol] 159 mg/dL Critically high 74-106 [facility] Comment on above: Performed By: #### T SH, CMP, LIPID ####[facility] [address] [address]Dr. Rc Cristian Potassium [Moles/Vol] 4.5 mmol/L Normal 3.5-5.1 [facility] Comment on above: Performed By: #### T SH, CMP, LIPID ####[facility] [address] [address]Dr. Siribreanna Foster Protein [Mass/Vol] 7.5 g/dL Normal 6.4-8.2 [facility] Comment on above: Performed By: #### T SH, CMP, LIPID ####[facility] [address] [address]Dr. Rc Foster Sodium [Moles/Vol] 138 mmol/L Normal 136-145 [facility] Comment on above: Performed By: #### T SH, CMP, LIPID ####[facility] [address] [address]Dr. Rc Foster Urea nitrogen [Mass/Vol] 23.0 mg/dL Critically high 7.0-18.0 [facility] Comment on above: Performed By: #### T MORE HINTON, LIPID ####[facility] [address] [place], [place] [address]Ya. Rc Foster Urea nitrogen/Creatinine [Mass ratio] 23.0 mg/mg Normal [facility] Comment on above: Performed By: #### T MARY JANE CMP, LIPID ####[facility] [address] [place], [place] [address]Cu. Rc Foster TSHon 03-30-2022 TSH 2.807 uIU/mL Normal 0.358-3.740 [facility] Comment on above: Performed By: #### T MORE HINTON, LIPID ####[facility] [address] [place], [place] [address]Xj. Rc Foster US THYROIDon 03-30-2022 US THYROID EXAMINATION: [...] by: BERNY CANO Date: 2022-03-30 11:03 Normal [facility] MG MAMM SCREEN 3D LEX CADon 03-19-2022 MG MAMM SCREEN 3D LEX CAD Patient: CARROLL HARDEN Exam Date: 03/19/2022 : 1960 Gender:F Ordering : DR ROBERT CRUZ D.O. Admission #: [id number] Family : Order #: [id number] CLICK HERE TO VIEW EXAM RADIOLOGY REPORT [...] Family Cancers None LOCATION: [facility] BREAST COMPOSITION: Scattered areas fibroglandular density. [...] 03/23/2022 at 11:59 Normal [facility] CBC AUTO DIFFon 11-27-2021 BASO # 0.0 103/ul Normal 0.0-0.1 [facility] Comment on above: Performed By: #### C BC #### [facility] [address] [address] [address] Rc Foster Basophils/100 WBC (Bld) 0.7 % Normal 0.2-2.0 [facility] Comment on above: Performed By: #### C BC #### [facility] [address] [address] [address] Rc Foster EO # 0.6 103/ul Normal 0.0-0.7 [facility] Comment on above: Performed By: #### C BC #### [facility] [address] [place] [address] Dr. Rc Foster Eosinophils/100 WBC (Bld) 10.3 % Critically high 0.9-7.0 [facility] Comment on above: Performed By: #### C BC #### [facility] [address] [place] [address] Dr. Rc Foster Erythrocyte distribution width (RBC) [Ratio] 12.4 % Normal 11.0-15.0 [facility] Comment on above: Performed By: #### C BC #### [facility] [address] [place] [address] Dr. Rc Foster Hematocrit (Bld) [Volume fraction] 41.2 % Normal 36.0-48.0 [facility] Comment on above: Performed By: #### C BC #### [facility] [address] [place] [address] Dr. Rc Foster Hemoglobin (Bld) [Mass/Vol] 13.4 g/dL Normal 12.0-16.0 [facility] Comment on above: Performed By: #### C BC #### [facility] [address] [place] [address] Dr. Rc Foster IG # 0.01 10e3/ul Normal 0.00-0.03 [facility] Comment on above: Performed By: #### C BC #### [facility] [address] [place] [address] Dr. Rc Foster IG % 0.2 % Normal 0.0-0.5 [facility] Comment on above: Performed By: #### C BC #### [facility] [address] [place] [address] Dr. Rc Foster LYMPH # 2.3 103/ul Normal 1.2-3.8 [facility] Comment on above: Performed By: #### C BC #### [facility] [address] [place] [address] Dr. Rc Foster Lymphocytes/100 WBC (Bld) 40.6 % Normal 20.5-60.0 [facility] Comment on above: Performed By: #### C BC #### [facility] [address] [place] [address] Dr. Rc Foster MANUAL DIFF REQ NO Normal [facility] Comment on above: Performed By: #### C BC #### [facility] [address] [place] [address] Dr. Rc Foster MCH (RBC) [Entitic mass] 28.8 pg Normal 26.7-34.0 [facility] Comment on above: Performed By: #### C BC #### [facility] [address] [place] [address] Dr. Rc Foster MCHC (RBC) [Mass/Vol] 32.5 g/dL Normal 29.9-35.2 [facility] Comment on above: Performed By: #### C BC #### [facility] [address] [place] [address] Dr. Rc Foster MCV (RBC) [Entitic vol] 88.6 fL Normal 81.0-99.0 [facility] Comment on above: Performed By: #### C BC #### [facility] [address] [place] [address] Dr. Rc Foster MONO # 0.4 103/ul Normal 0.3-0.8 [facility] Comment on above: Performed By: #### C BC #### [facility] [address] [place] [address] Dr. Rc Foster Monocytes/100 WBC (Bld) 7.6 % Normal 1.7-12.0 [facility] Comment on above: Performed By: #### C BC #### [facility] [address] [place] [address] Dr. Rc Foster NEUT # 2.3 103/ul Normal 1.4-6.5 [facility] Comment on above: Performed By: #### C BC #### [facility] [address] [place] [address] Dr. Rc Foster Neutrophils/100 WBC (Bld) 40.6 % Critically low 43.0-75.0 [facility] Comment on above: Performed By: #### C BC #### [facility] [address] [place] [address] Dr. Rc Foster Platelet mean volume (Bld) [Entitic vol] 9.6 fL Normal 9.5-13.5 [facility] Comment on above: Performed By: #### C BC #### [facility] [address] [place] [address] Dr. Rc Foster PLT 194 103/ul Normal 150-450 [facility] Comment on above: Performed By: #### C BC #### [facility] [address] [place] [address] Dr. Rc Foster RBC 4.65 106/ul Normal 4.20-5.40 [facility] Comment on above: Performed By: #### C BC #### [facility] [address] [place] [address] Dr. Rc Foster WBC 5.5 103/ul Normal 4.0-11.0 [facility] Comment on above: Performed By: #### C BC #### [facility] [address] [place] [address] Dr. Rc Foster GLYCOHEMOGLOBIN A1Con 2021 ADA RECOMMENDATION SEE BELOW Normal [facility] Comment on above: Result Comment: ADA RECOMMENDED LIMIT 4.0 - 6.0 ADA THERAPEUTIC TARGET < 7.0 ACTION SUGGESTED > 7.0 Performed By: #### A 1C #### [facility] [address] [place] [address] Dr. Rc Foster Glucose [Mass/Vol] 131 mg/dL Normal [facility] Comment on above: Performed By: #### A 1C #### [facility] [address] [place] [address] Dr. Rc Foster HbA1c (Bld) [Mass fraction] 6.2 % Normal 4.5-6.2 [facility] Comment on above: Performed By: #### A 1C #### [facility] [address] [place] [address] Dr. Rc Foster PROF CHEM 8 (BAS METB)on Anion gap [Moles/Vol] 15.2 mmol/L Normal [facility] [place] Comment on above: Performed By: #### T SH, BMP #### [facility] [address] [address] [address] Rc Foster Calcium [Mass/Vol] 8.5 mg/dL Normal 8.5-10.1 [facility] Comment on above: Performed By: #### T SH, BMP #### [facility] [address] [address] [address] Rc Foster Chloride [Moles/Vol] 100 mmol/L Normal 98-107 [facility] Comment on above: Performed By: #### T SH, BMP #### [facility] [address] [place] [address] Dr. Rc Foster CO2 [Moles/Vol] 26.6 mmol/L Normal 21.0-32.0 [facility] Comment on above: Performed By: #### T SH, BMP #### [facility] [address] [place] [address] Dr. Rc Foster Creatinine [Mass/Vol] 1.15 mg/dL Critically high 0.55-1.02 [facility] Comment on above: Performed By: #### T SH, BMP #### [facility] [address] [place] [address] Dr. Rc Foster EGFR-AF CAMEROONIAN 58 mL/min/1.73m2 Critically low >=60 [facility] Comment on above: Performed By: #### T SH, BMP #### [facility] [address] [place] [address] Dr. Rc Foster EGFR-NON AF CAMEROONIAN 48 mL/min/1.73m2 Critically low >=60 [facility] Comment on above: Performed By: #### T SH, BMP #### [facility] [address] [place] [address] Dr. Rc Foster Glucose [Mass/Vol] 211 mg/dL Critically high 74-106 [facility] Comment on above: Performed By: #### T SH, BMP #### [facility] [address] [place] [address] Dr. Rc Foster Potassium [Moles/Vol] 4.8 mmol/L Normal 3.5-5.1 [facility] Comment on above: Performed By: #### T SH, BMP #### [facility] [address] [place] [address] Dr. Rc Foster Sodium [Moles/Vol] 137 mmol/L Normal 136-145 [facility] Comment on above: Performed By: #### T SH, BMP #### [facility] [address] [place] [address] Dr. Rc Foster Urea nitrogen [Mass/Vol] 33.0 mg/dL Critically high 7.0-18.0 [facility] Comment on above: Performed By: #### T SH, BMP #### [facility] [address] [place] [address] Dr. Rc Foster Urea nitrogen/Creatinine [Mass ratio] 28.7 mg/mg Normal [facility] Comment on above: Performed By: #### T SH, BMP #### [facility] [address] [place] [address] Dr. Rc Foster TSHon 11-27-2021 TSH 0.744 uIU/mL Normal 0.358-3.740 [facility] Comment on above: Performed By: #### T SH, BMP #### [facility] [address] [place] [address] Dr. Rc Foster SYMPTOMATIC COVID-19 ANTIGEN on 10-28-2021 EUA Statement SEE BELOW Normal [facility] Comment on above: Result Comment: This test [...] Performed By: #### C VDAGS ####[facility] [id number] [place], [place] [address]UiDr. Rc Foster SARS-CoV-2 (COVID-19) RNA YARED+probe Ql (Unsp spec) Negative Normal NEGATIVE [facility] Comment on above: Performed By: #### C VDAGS ####[facility] [id number] [place], [place] [address]MmDr. Rc Foster GLYCOHEMOGLOBIN A1Con 2021 ADA RECOMMENDATION SEE BELOW Normal [facility] Comment on above: Result Comment: ADA RECOMMENDED LIMIT 4.0 - 6.0 ADA THERAPEUTIC TARGET < 7.0 ACTION SUGGESTED > 7.0 Performed By: #### A 1C #### [facility] [address] [address] [address] Rc Foster Glucose [Mass/Vol] 128 mg/dL Normal [facility] Comment on above: Performed By: #### A 1C #### [facility] [address] [address] [address] Rc Foster HbA1c (Bld) [Mass fraction] 6.1 % Normal 4.5-6.2 [facility] Comment on above: Performed By: #### A 1C #### [facility] [address] [address] [address] Rc Foster Discharge CCD Assessmenton 0 09-06-2020 Discharge CCD Assessment [facility] Patient: CARROLL HARDEN [address] [place] [address] MR#: [id number] DISCHARGE CCD ASSESSMENT : 58 Service Date: 09/06/20 1018 Discharge CCD Assessment Assessment Patient discharged home to continue exercises, pain medication, and wound care Electronically Signed eSign Date and Time Melyssa Flores 09/06/20 1019 Tera Hernandez MD Normal [facility] GLUCOSE METERon 09-06-2020 Glucose [Mass/Vol] 126 mg/dL High 70-99 [facility] Comment on above: Order Comment: CONSE RVATION Result Comment: Fast ing GLUCOSE reference range has been updated per (ADA) [place] [employer]'s recommendation. 07/18/2018 Performed By: #### L 500.46546 ####Test performed at: [address] [address] Glucose [Mass/Vol] 205 mg/dL High 70-99 [facility] Comment on above: Order Comment: CONSE RVATION Result Comment: Fast ing GLUCOSE reference range has been updated per (ADA) [place] Diabetes Association's recommendation. 07/18/2018 Insulin per sl scale Performed By: #### L 500.17471 #### Test performed at: [address] [address] Internal Med Progress Noteon 09-06-2020 Internal Med Progress Note [facility] Patient: CARROLL HARDEN [address] [place] [address] MR#: [id number] PROGRESS NOTE - Internal Medicine : 58 Service Date: 09/06/20 0746 Subjective Summary of Stay Ms. Harden is a 60 yo F with a PMHx of DM2 well controlled, HTN, migraines, HLD, Hypothyroidism, ADAN, restless legs, Hysterectomy and ovaries removed, partial thyroidetomy , C5-C6 surgeries x 2 (most recent 2018), bilateral shoulder replacement, cardiac cath 2016 which was okay, who is POD-2 s/p [...] RES, Katarzy na MD 09/06/20 1134 Normal [facility] Orthopedic Progress Noteon 0 09-06-2020 Orthopedic Progress Note [facility] Patient: CARROLL HARDEN [address] [place] [address] MR#: [id number] PROGRESS NOTE - Orthopedic : 58 Service [...] 87 09/06 0820 Pulse Ox 96 09/06 06 O2 Delivery ROOM AIR 09/06 0620 Temp [...] RN 09/06/20 1022 Tera Hernandez MD Normal [facility] Anesthesia Noteon 09-05-2020 Anesthesia Note [facility] Patient: CARROLL HARDEN [address] [place] [address] MR#: [id number] ANESTHESIA NOTE : Service Date: 09/05/20811 Post-anesthesia Note Note Patient assessed post operatively [...] pre-op Electronically Signed eSign Date and Time Delphine,Krystian SATELLITE INSTALLER-PHOTOGRAPH EDITOR 09/05/20 0813 Chu Glez MD Normal [facility] BASIC MET PANELon 09-05-2020 Anion gap [Moles/Vol] 12 mmol/L Normal 6-18 [facility] Comment on above: Performed By: #### L 500.90440, L500.00953 #### Test performed at: [address] [address] Calcium [Mass/Vol] 8.7 mg/dL Normal 8.5-10.1 [facility] Comment on above: Performed By: #### L 500.68722, L500.64456 #### Test performed at: [address] [address] Chloride [Moles/Vol] 101 mmol/L Normal 98-107 [facility] Comment on above: Performed By: #### L 500.54554, L500.20860 #### Test performed at: [address] [address] CO2 [Moles/Vol] 25 mmol/L Normal 21-32 [facility] Comment on above: Performed By: #### L 500.12978, L500.59071 #### Test performed at: [address] [address] Creatinine [Mass/Vol] 1.020 mg/dL Normal 0.550-1.020 [facility] Comment on above: Performed By: #### L 500.06028, L500.87552 #### Test performed at: [address] [address] Glucose [Mass/Vol] 264 mg/dL High 70-99 [facility] Comment on above: Result Comment: Fast ing GLUCOSE reference range has been updated per (ADA) [place] Diabetes Association's recommendation. 07/18/2018 Performed By: #### L 500.86833, L500.79233 #### Test performed at: [address] [address] OSM 289 mosm/kg Normal 270-300 [facility] Comment on above: Performed By: #### L 500.10151, L500.46032 #### Test performed at: [address] [address] Potassium [Moles/Vol] 4.5 mmol/L Normal 3.5-5.1 [facility] Comment on above: Performed By: #### L 500.93650, L500.57449 #### Test performed at: [address] [address] Sodium [Moles/Vol] 134 mmol/L Low 136-145 [facility] Comment on above: Performed By: #### L 500.66987, L500.80597 #### Test performed at: [address] [address] Urea nitrogen [Mass/Vol] 17 mg/dL Normal 7-18 [facility] Comment on above: Performed By: #### L 500.84927, L500.50879 #### Test performed at: [address] [address] GFR ESTIMATEon 09-05-2020 IF AMER > 60 Normal > 60 [facility] Comment on above: Result Comment: eGFR (Estimated GFR) Units of measure:mL/min/1.73 meters sq. *CALCULATION REVISED 02/11/2015;IDMS-traceable MDRD equation eGFR is derived from the reexpressed MDRD Study equation using the following parameters: serum creatinine, age, gender and race. An eGFR<60 mL/min/1.73m2 for >3 months is consistent with chronic kidney disease. Refer to KDOQI guidelines for clinical interpretation. Performed By: #### L 500.84871, L500.41489 #### Test performed at: [address] [address] IF non-AFR AMER 55 Low > 60 [facility] Comment on above: Performed By: #### L 500.68427, L500.76920 #### Test performed at: [facility] [address] [place] [address] GLUCOSE METERon 09-05-2020 Glucose [Mass/Vol] 177 mg/dL High 70-99 [facility] Comment on above: Order Comment: CONSE RVATION Result Comment: Fast ing GLUCOSE reference range has been updated per (ADA) [place] Diabetes Association's recommendation. 07/18/2018 Performed By: #### L 500.42902 #### Test performed at: [address] [address] Glucose [Mass/Vol] 310 mg/dL High 70-99 [facility] Comment on above: Result Comment: Fast ing GLUCOSE reference range has been updated per (ADA) [place] Diabetes Association's recommendation. 07/18/2018 Insulin per sl scale Performed By: #### L 500.62295 ####Test performed at: [address] [address] Glucose [Mass/Vol] 281 mg/dL High 70-99 [facility] Comment on above: Result Comment: Fast ing GLUCOSE reference range has been updated per (ADA) [place] Diabetes Association's recommendation. 07/18/2018 Insulin per sl scale Performed By: #### L 500.44941 #### Test performed at: [address] [address] [place] [address] Glucose [Mass/Vol] 105 mg/dL High 70-99 [facility] Comment on above: Result Comment: Fast ing GLUCOSE reference range has been updated per (ADA) [place] Diabetes Association's recommendation. 07/18/2018 Performed By: #### L 500.26288 #### Test performed at: [address] [address] [address] [place] [address] HGB AND HCTon 09-05-2020 Hematocrit (Bld) [Volume fraction] 37.5 % Normal 36.0-48.0 [facility] Comment on above: Performed By: #### L 200.77362 #### Test performed at: [address] [address] Hemoglobin (Bld) [Mass/Vol] 12.5 g/dL Normal 12.0-15.0 [facility] Comment on above: Performed By: #### L 200.76154 #### Test performed at: [address] [address] Internal Med Progress Noteon 09-05-2020 Internal Med Progress Note [facility] Patient: CARROLL HARDEN [address] [place] [address] MR#: [id number] PROGRESS NOTE - Internal Medicine : 58 Service Date: 09/05/[address] Subjective Summary of Stay Ms. Harden is a 60 yo F with a PMHx of DM2 well controlled, HTN, migraines, HLD, Hypothyroidism, ADAN, restless legs, Hysterectomy and ovaries removed, partial thyroidetomy , C5-C6 surgeries x 2 (most recent 2018), bilateral shoulder replacement, cardiac cath 2016 which was okay, who is POD-1 s/p [...] input. Disc (more content not included)... Normal [facility] OT Therapy Recommendationson 09-05-2020 OT Therapy Recommendations [facility] Patient: CARROLL HARDEN [address] [place] [address] MR#: [id number] OT THERAPY RECOMMENDATIONS : 58 Service Date: 09/05/20 1511 Therapy Recommendations Therapy Recommendations Recommendations OT evaluation completed. OT recommends HOME with FAmily assist. No further acute OT needs are indicated at this time. Electronically Signed eSign Date and Time Trupti Rojas OT 09/05/20 1512 Normal [facility] Orthopedic Progress Noteon 0 09-05-2020 Orthopedic Progress Note [facility] Patient: CARROLL HARDEN [address] [place] [address] MR#: [id number] PROGRESS NOTE - Orthopedic : 58 Service [...] eSign Date and Time RUBEN KHAN 09/05/20 1427 Wilbur,Tera Mitchell MD Normal [facility] PT Therapy Recommendationson 09-05-2020 PT Therapy Recommendations [facility] Patient: CARROLL HARDEN [address] [address] MR#: [id number] PT THERAPY RECOMMENDATIONS : 58 Service Date: 09/05/20 0914 Therapy Recommendations Therapy Recommendations Recommendations PT eval complete. No further acute PT needs. Recommend d/c home /c family assist. Electronically Signed eSign Date and Time Tiffanie Bashir PT 09/05/20 0914 Normal [facility] z OT Inpatient Discharge Not juan 09-05-2020 z OT Inpatient Discharge Note [facility] Patient: CARROLL HARDEN [address] [id number] MR#: [id number] OT INPATIENT DISCHARGE NOTE : 58 Service [...] Time Trupti Rojas OT 09/05/20 1534 Normal [facility] z OT Inpatient Evaluationon 09-05-2020 z OT Inpatient Evaluation [facility] Patient: CARROLL HARDEN [address] [address] MR#: [id number] OT INPATIENT EVALUATION : 58 Inpatient OT HPI Date of Service 09/05/20 Time In: 1401 Time Out: 1412 Total Treatment Time (Mins) 11 Visit Reason LATERAL RECESS STENOSIS W/ RADICULOPATHY Surgery Type/Date s/p L L4-5 LAmi, foraminotomy, decompression on 09.04.20/ Lumbar spine precautions Referral Date 09/04/20 Tx Diagnosis: LOW BACK PAIN Insurance Name [facility] POS O Hospital Course Pt is a left hand [...] 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 Objective Precautions Lumbar [...] Excellent Nader (more content not included)... Normal [facility] z PT Inpatient Discharge Not juan 09-05-2020 z PT Inpatient Discharge Note [facility] Patient: CARROLL HARDEN [address] [place], [place] [id number] MR#: [id number] PT INPATIENT DISCHARGE NOTE : 58 Service [...] Time Tiffanie Bashir PT 09/05/20 1139 Normal [facility] z PT Inpatient Evaluationon 09-05-2020 z PT Inpatient Evaluation [facility] Patient: CARROLL HARDEN [address] [place], [place] [id number] MR#: [id number] PT INPATIENT EVALUATION : 58 Service Date: 09/05/20 0928 Inpatient PT HPI Date of Service 09/05/20 Time In: 45 Time Out: 906 Total Treatment Time (Mins) 22 Room Number 624 Visit Reason LATERAL RECESS STENOSIS W/ RADICULOPATHY Surgery Type: L L4-5 lami, foraminotomy, decompression Surgery Date: 09/04/20 Referral Date 09/04/20 Tx Diagnosis: LOW BACK PAIN Insurance Name [employer] [place] [facility] [place] 60 y.o female at [facility] for above sx d/t lateral recess stenosis [...] posture. 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 Pt agreeable to use of her cane [...] Time Tiffanie Bashir PT 09/05/20 1502 Normal [facility] GLUCOSE METERon 09-04-2020 Glucose [Mass/Vol] 94 mg/dL Normal 70-99 [facility] Comment on above: Result Comment: Fast ing GLUCOSE reference range has been updated per (ADA) [place] Diabetes Association's recommendation. 07/18/2018 Performed By: #### L 500.41484 ####Test performed at: [address] [address] Internal Medicine Consultati onon 09-04-2020 Internal Medicine Consultation [facility] Patient: CARROLL HARDEN [address] [id number] MR#: [id number] CONSULTATION - Internal Medicine : 58 Service Date: 09/04/20 1549 History of Present Illness Referring Physician Tera [...] thyroidetomy, C5-C6 surgeries x 2 (most recent 2019), bilateral shoulder replacement, cardiac cath 2016 which [...] Entered as Reported by LUZ CABELLO on 09/04/201056 Last Action: Reviewed on 09/04/201056 by LUZ [...] Last Taken: 09/03/20 Last Action: Reviewed on 09/04/20 105 by LUZ CABELLO Levothyroxine Sodium * (Synthroid *) 125 MCG TABLET 125 MCG PO DAILY HYPOTHROIDISM, Ref 0 (Reported) Entered as Reported by JORDON MATHUR on 12/11/18920 Last Action: Reviewed on 09/04/201054 by LUZ CABELLO Metformin HCl (Glucophage) 500 MG TABLET 500 MG PO BID DIABETES, Ref 0 (Reported) Entered as Reported by JORDON MATHUR on 12/11/18920 Last Action: Reviewed on 09/04/20 105 by LUZ CABELLO Nabumetone * (Relafen *) 500 MG TABLET 1,000 MG PO BID, Ref 0 (Reported) Entered as Reported by LUZ CABELLO on 09/04/20 105 Last Action: Reviewed on 09/04/20 105 by LUZ CABELLO Pravastatin Sodium * (Pravachol *) 20 MG TABLET 20 MG PO QHS HIGH CHOLESTROL, Ref 0 ( Reported) Entered as Reported by JORDON MATHUR on 12/11/18 0917 Last Action: Reviewed on 09/04/20 105 by LUZ CABELLO tiZANidine HCl * (Zanaflex *) 4 MG TABLET 4 MG PO QHS MUSCLE SPASMS, Ref 0 (Reported) Entered as Reported by JORDON MATHUR on 12/11/18 0916 Last Action: Reviewed on 09/04/20 105 by LUZ CABELLO Scheduled PRN Medications Oxycodone [...] of Systems (more content not included)... Normal [facility] OPERATIVE REPORTon OPERATIVE REPORT NAME: CARROLL HARDEN MR#: [id number] SURGEON: Tera Hernandez MD DATE OF SURGERY: [...] there were no complications. TERA HERNANDEZ MD [facility] PT NAME: CARROLL HARDEN MR#: [id number] [address] [place] [address] ACCT: [id number] : 58 OPERATIVE REPORT [id number] E/S: Tera Hernandez MD 09/18/20 1207 Electronically Signed [facility] PT NAME: CARROLL HARDEN MR#: [id number] [address] [place], [place] [id number] ACCT: [id number] : 58 OPERATIVE REPORT Normal [facility] Primary Residenton Primary Resident [facility] Pt Name: CARROLL HARDEN MR#: [id number] [address] [place] [address] ACCT: [id number] [place] [id number] : 58 Service Date: 09/04/20 1603 Primary Resident/Call Primary Resident: [id number] Panchito After Hours Call: [phone] Red Team Electronically Signed eSign Date and Time Ana Flanagan RES 09/16/20 1521 Normal [facility] LUMBAR SPINE 2 OR 3 VIEWSon 09-03-2020 LUMBAR SPINE 2 OR 3 VIEWS STUDY: LUMBAR SPINE 2 OR 3 VIEWS; 09/04/2020 2:57 pm INDICATION: LEFT L4-L5 LAMINECTOMY,FORAMINOT JOSE ANGEL,DECOMPRESSION. COMPARISON: None. ACCESSION NUMBER(S): [id number] ORDERING CLINICIAN: Tera Hernandez FINDINGS: Intraoperative fluoroscopy of the lumbar spine demonstrates surgical instruments posterior to L5. IMPRESSION: As above Normal [facility] CHEST PA/AP & LATERALon CHEST PA/AP & LATERAL STUDY: CHEST PA/AP LATERAL; 08/25/2020 11:00 am INDICATION: SOB/PAT. COMPARISON: None. ACCESSION NUMBER(S): [id number] ORDERING CLINICIAN: Madelyn Leslie FINDINGS: The lungs are clear without pleural effusion. Normal heart size, mediastinum, elzbieta, and pulmonary vasculature. IMPRESSION: No active disease in the chest. Normal [facility] CONSULTATION REPORTon 2020 CONSULTATION REPORT NAME: CARROLL HARDEN MR#: [id number] PAPER REWINDER OPERATOR: Madelyn Leslie MD DATE OF CONSULTATION: 08/25/2020 [...] pulse ox is 98% on room air. [facility] PT NAME: CARROLL HARDEN MR#: [id number] [address] [place] [address] ACCT: [id number] : 58 CONSULTATION HEENT: Atraumatic head. 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 IMPRESSION: 1. Preop clearance for L4-L5 disk [...] courtesy of this consultation. MADELYN LESLIE MD MS/MODL/[id number] E/S: Madelyn Leslie MD 08/26/20 2629 Electronically Signed [facility] PT NAME: CARROLL HARDEN MR#: [id number] [address] [place] [address] ACCT: [id number] : 58 CONSULTATION Normal [facility] LUMB SP COMP W FLEX/EXT 6 VW S>on 08-08-2020 LUMB SP COMP W FLEX/EXT 6 VWS> STUDY: LUMB SP COMP W FLEX/EXT 6 VWS>; 08/08/2020 9:43 am INDICATION: BACK PAIN. COMPARISON: No available comparisons. ACCESSION NUMBER(S): [id number] ORDERING CLINICIAN: Tera Hernandez TECHNIQUE: 6 views [...] L5-S1 level. No evidence of instability.. Normal [facility] XR SHLDR >/=3V AP/RUSH AP/OTH R [...] Jul 03 2018 10:17AM EST [id number] N [facility] ANES Holly 06-20-2018 ANES POST HNO ID: [id number] Author: Rohit Velarde Service: Anesthesiology Author Type: [...] 20, 2018 TIME: 2:38 PM [facility] HNO ID: [id number] Author: Rohit Velarde Service: Anesthesiology Author Type: [...] (XYLOCAINE) 0.1-0.2 mL INTRADERMAL PRN Isreal Kim) Trent lactated ringers infusion 5-30 mL/hr INTRAVENOUS CONTINUOUS Isreal Kmi) Trent ceFAZolin iv piggyback 2 g in [...] June 20, 2018 TIME: 9:35 AM CSN: [id number] [facility] BRIEF OP NOTon 06-20-2018 BRIEF OP NOT HNO ID: [id number] Author: Kusum Francisco Service: Orthopaedic Surgery Author Type: Resident Type: Brief Op Note Filed: 06/20/2018 5:49 PM Note Text: BRIEF OP NOTE LOG ID: [id number] Surgery/Procedure Date: 06/20/2018 Incision/Procedure Start Time: 11:18 AM Incision Close/Procedure End Time: 1:17 PM Surgeon(s)/Procedural ist(s) and [employer](s): Surgeon(s) and Role: * Jenna Lentz - [...] 20, 2018 TIME: 5:49 PM PAGER/CONTACT #: [facility] CASE MANAGEMon 06-20-2018 CASE MANAGEM HNO ID: [id number] Author: May Herrera (Sw) Service: Care Management Author Type: Supervisor [employer] Type: Care Mgt Progress Note Filed: 06/20/2018 [...] is pcp summary of care sent via [facility] () Nurse to provide discharge instructions. TRANSPORTATION ARRANGEMENTS: Car Spouse ADDITIONAL CONTACT RESOURCES: Needs Prior to Discharge: Ready for Discharge Appointments for Next 45 Days Date Time Provider Location Dept Phone 07/03/2018 10:00 AM CAROLA BAPTISTE AT [phone] 07/03/2018 10:30 AM GABRIEL CANTU) LATOSHA AT [phone] 07/31/2018 2:15 PM JENNA LENTZ AT [phone] Pt to be discharged home to follow up as above. SIGNATURE: DARIO Saini PATIENT NAME: Carroll Harden DATE: June 20, 2018 TIME: 5:31 PM PAGER/CONTACT #: [phone] [facility] CASE MGT INIT ASSESon 2018 CASE MGT INIT ASSES HNO ID: [id number] Author: May Herrera (Sw) Service: Care Management Author Type: Supervisor [employer] Type: Care Mgt Initial Assessment Filed: 06/20/2018 [...] None Has the Patient Been in a Shelter Facility in the Past 30 days? 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 O.Therapy recommend home. Spouse visiting at bedside and will transport pt home later today.Further discharge needs not anticipated.SW/TCC to follow to assist with plans for discharge. SIGNATURE: DARIO Saini PATIENT NAME: Carroll Harden DATE: June 20, 2018 TIME: 5:27 PM PAGER/CONTACT #: [phone] [facility] CONSULTon 06-20-2018 CONSULT HNO ID: [id number] Author: Dulce Green Service: General Internal Medicine [...] Disp: Rfl: 06/19/2018 at 0630 rizatriptan (MAXALT BALL WORKER) 10 mg disintegrating tablet DISSOLVE 1 TABLET [...] the care of your patient. Dulce Green APRN.BUDGET CONSULTANT June 20, 2018 4:34 PM Normal [facility] NURSING PROGon 06-20-2018 Protein mass conc HNO ID: [id number] Author: Fela (Rn) FLETCHER Phillips Service: (none) Author Type: Registered Nurse Type: Nursing Progress Note Filed: 06/20/2018 7:39 PM Note Text: Nursing Progress Note Patient Name: Carroll Harden Patient Location: [facility] [place] Daily Note: 1545. Care assumed. Pt resting [...] at bedside. 1720. Dr. Blake and Dulce SERVICES ENGINEER at bedside, plan is to stay for [...] note was completed by: Fela Phillips RN [facility] Protein mass conc HNO ID: [id number] Author: Wendy ValenciaRn) FLETCHER Underwood Service: Nursing Author Type: Registered Nurse Type: Nursing Progress Note Filed: 06/20/2018 10:20 AM Note Text: Nursing Progress Note Patient Name: Carroll Harden Patient Location: SURGERY [facility]/ S* Daily Note:Right interscalene nerve block with ultrasound guidance with Dr. Velarde and Dr. Marlow at bedside. Patient tolerated procedure well, VSS, will continue to monitor as we wait for OR team. Resting comfortably with no complaints of pain at this time. This note was completed by: Wendy Underwood RN [facility] OPERATIVE NOon 06-20-2018 OPERATIVE NO HNO ID: [id number] Author: Jenna Lentz Service: Orthopaedic Surgery Author Type: Physician Type: Operative Report Filed: 06/20/2018 1:25 PM Note Text: [place] [id number] [place] OPERATIVE REPORT NAME: Carroll Harden [facility] #: [id number] DATE: 06/20/2018 (11:18am-1:17pm) AGE: 58 SURGEON 1: Jenna Lentz M.D. [employer] SUPERVISOR: 1. Augie Coates M.D. 2. Kusum Prasad M.D. 3. Mundo Pablo OPERATION: Right total shoulder arthroplasty, biceps tenodesis. ANESTHESIA: General anesthesia with regional interscalene nerve block for postoperative pain control. PREOPERATIVE DIAGNOSIS: Right shoulder primary glenohumeral osteoarthritis. POSTOPERATIVE DIAGNOSIS: Right shoulder primary glenohumeral osteoarthritis, biceps tendinopathy. OPERATIVE INDICATIONS: The patient is a 58 year oldorm-zsan-wbz right-hand dominant white female who has a [...] rotator interval stitch was then passed in redkmc-wz-yrjuy fashion with a #2 Ticron suture and tied down to close the lateral rotator interval and set the osteotomy superiorly. The two #2 Fiberwire sutures coming out of the bicipital groove were then sequentially passed in a algoks-jw-ujalg fashion medial to the horizontal mattress and [...] none COMPLICATIONS: none apparent Jenna Lentz M.D. [facility] PT EDon 06-20-2018 PT ED HNO ID: [id number] Author: Cindy ValenciaRn) FLETCHER Griffin Service: (none) Author Type: Registered [...] Signed By: Cindy Griffin RN In Department: [facility] THERAPY NTon 06-20-2018 THERAPY NT HNO ID: [id number] Author: Abi ValenciaOtTyesha Phillips Service: Occupational Therapy Author Type: Occupational Therapist Type: Therapy (PT/OT/Speech/Resp) Filed: 06/20/2018 4:59 PM Note Text: Occupational Therapy Evaluation SERVICE DATE: 06/20/2018 SERVICE TIME: 1550 to 1640 ROOM: [place] [address]- Recommended Discharge Disposition: Home Anticipated Discharge Needs: [...] living (ADL) Interventions Provided: Evaluation;Therapeuti c Exercise (71699);Self Custodial Management (00744) $ Evaluation-Low (86398) Billed Units: 1 unit Therapeutic Exercise (94717) Treatment Minutes: 10 1 unit Skilled Intervention(s): Education in Self Custodial Management (19815) Treatment Minutes: 28 2 units Skilled Intervention(s): [...] Patient Lives With: Spouse 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 HOSPon 04-28-2018 HOSP Patient:Adalberto Harden MRN: Height:5' 2 (1.575 m) Weight:186 lb (84.369 kg) Outpatient Medications as of 06/20/18: calcium phosphate dibas/vit D3 (VITAMIN D, WITH CALCIUM, ORAL) docusate sodium (COLACE) 100 mg capsule aspirin, enteric coated (ECOTRIN LOW STRENGTH) 81 mg EC tablet oxyCODONE-acetaminoph en (PERCOCET) 5-325 mg tablet rizatriptan (MAXALT BALL WORKER) 10 mg disintegrating tablet mupirocin (BACTROBAN) 2 [...] 46.0 36.0 Progress Notes (RADIO CT SCAN [facility]): RT Lillian, Tech 06/07/2018 10:04 AM [...] RT Lillian June 07, 2018 9:54 AM [facility] Vital Signs Date Time Vital Sign Value Performing Clinician Facility 04-29-2023 09:00-0500 Body height 154.94 cm Robert [facility] Other [facility] Other 04-29-2023 09:00-0500 Body mass index (BMI) [Ratio] 33.14 kg/m2 [facility] Other [facility] Other 04-29-2023 09:00-0500 Body weight 79.56 kg [facility] Other [facility] Other 04-29-2023 09:00-0500 Diastolic blood pressure 89 mm[Hg] [facility] Other [facility] Other 04-29-2023 09:00-0500 Respiratory rate 12 /min [facility] Other [facility] Other 04-29-2023 09:00-0500 Systolic blood pressure 155 mm[Hg] Robert Ball Other [facility] Other 12-20-2022 13:45-0400 Body height 154.94 cm Robert Ball Other [facility] Other 12-20-2022 13:45-0400 Body mass index (BMI) [Ratio] 34.12 kg/m2 Robert Ball Other [facility] Other 12-20-2022 13:45-0400 Body weight 81.92 kg Robert Ball Other [facility] Other 12-20-2022 13:45-0400 Diastolic blood pressure 96 mm[Hg] Robert Ball Other [facility] Other 12-20-2022 13:45-0400 Respiratory rate 12 /min Robert Ball Other [facility] Other 12-20-2022 13:45-0400 Systolic blood pressure 179 mm[Hg] Robert Ball Other [facility] Other 08-04-2022 09:45-0400 Body height 154.94 cm Robert Ball Other [facility] Other 08-04-2022 09:45-0400 Body mass index (BMI) [Ratio] 33.33 kg/m2 Robert Ball Other [facility] Other 08-04-2022 09:45-0400 Body weight 80.02 kg Robert Ball Other [facility] Other 08-04-2022 09:45-0400 Diastolic blood pressure 77 mm[Hg] Robert Ball Other [facility] Other 08-04-2022 09:45-0400 Respiratory rate 12 /min Robert Ball Other [facility] Other 08-04-2022 09:45-0400 Systolic blood pressure 128 mm[Hg] Robert Ball Other [facility] Other Encounters Encounter Date Encounter Type Care Provider Facility Start: 06-01-2023 End: 06-01-2023 ambulatory Robert Ball Other [facility] Other Start: 06-01-2023 Telephone encounter Robert Ball [facility] Start: 05-23-2023 End: 05-24-2023 ambulatory Miriam Barron MD Facility:[facility] Start: 05-13-2023 End: 05-13-2023 ambulatory Robert Ball Other [facility] Other Start: 05-13-2023 Telephone encounter Robert Ball [facility] Start: 05-09-2023 End: 05-09-2023 ambulatory Robert Ball Other [facility] Other Start: 05-09-2023 Telephone encounter Robert Ball [facility] Start: 05-04-2023 End: 05-04-2023 ambulatory Robert Ball Other [facility] Other Start: 05-04-2023 Telephone encounter Robert Ball [facility] Start: 05-02-2023 End: 05-02-2023 ambulatory Robert Ball Other [facility] Other Start: 05-02-2023 Telephone encounter Robert Ball [facility] Start: 04-29-2023 End: 04-29-2023 ambulatory Robert Ball Other [facility] Other Start: 04-29-2023 Office outpatient vi sit 15 minutes Robert Ball [facility] Start: 04-04-2023 End: 04-04-2023 ambulatory Robert Ball Other [facility] Other Start: 04-04-2023 Telephone encounter Robert Ball [facility] Start: 01-24-2023 End: 01-24-2023 ambulatory Robert Ball Other [facility] Other Start: 01-24-2023 Telephone encounter Robert Ball [facility] Start: 12-23-2022 End: 12-23-2022 ambulatory Robert Ball Other [facility] Other Start: 12-23-2022 Telephone encounter Robert Ball [facility] Start: 12-20-2022 End: 12-20-2022 ambulatory Robert Ball Other [facility] Other Start: 12-20-2022 Office outpatient vi sit 15 minutes Robert Ball [facility] Start: 12-17-2022 End: 12-17-2022 ambulatory Robert Ball Other [facility] Other Start: 12-17-2022 Telephone encounter Robert Ball [facility] Start: 11-08-2022 End: 11-08-2022 ambulatory Robert Ball Other [facility] Other Start: 11-08-2022 Telephone encounter Robert Ball [facility] Start: 10-22-2022 End: 10-22-2022 ambulatory Robert Ball Other [facility] Other Start: 10-22-2022 Telephone encounter Robert Ball [facility] Start: 10-13-2022 End: 10-13-2022 ambulatory Robert Ball Other [facility] Other Start: 10-13-2022 Telephone encounter Robert Ball [facility] Start: 09-27-2022 End: 09-27-2022 ambulatory Robert Ball Other [facility] Other Start: 09-27-2022 Telephone encounter Robert CHAVARRIA [facility] Start: 08-23-2022 End: 08-24-[address] RISHI PARKER Facility:[facility] Start: 08-04-2022 End: 08-04-2022 ambulatory Robert Cruz Other [facility] Other Start: 08-04-2022 Office outpatient vi sit 25 minutes [facility] Start: 04-03-2022 Encounter for genera l adult medical examination without abnormal findings DR ROBERT CRUZ [facility] Start: 03-30-2022 End: 03-31-[address] ROBERT [...] Start: 07-03-2018 End: 07-03-2018 Patient encounter procedure [facility] Start: 06-20-2018 End: 06-20-2018 Evaluation and management of inpatient [facility] Procedures Date Procedure Procedure Detail Performing Clinician Start: 06-07-2018 Antibody screen JENNA RI GUY Payers Date Payer Category Payer Unknown 2022 [facility] [id number] 2019 Unknown [id number] 1959 Self-pay [id number] 1959 Unknown [id number] 2.16.84 [id number] 1959 Unknown [id number] 2.16.84 [id number] 1959 Unknown [id number] 2.16.84 [id number] 1959 Unknown [id number] 2.16.84 [id number] 1959 Unknown [id number] 2.16.84 [id number] 1959 Unknown [id number] 2.16.84 [id number] 1959 Unknown [id number] 2.16. [id number] Unknown [id number] 2.16.84 [id number] Social History Date Type Detail Facility Sex Assigned At [facility] Other Clinical Notes 08-04-2022 to 06-01-2023 Note Date & Type Note Facility 06-01-2023 Evaluation note Encounter Date Diagnosis Assessment Notes May, Autoimmune thyroiditis (ICD-10 - E06.3) May, Elevated cholesterol (ICD-10 - E78.00) May, Type 2 diabetes mellitus with hyperglycemia, without long-term current use of insulin (ICD-10 - E11.65) May, Primary hypertension (ICD-10 - I10) May, Intractable chronic migraine without aura and without status migrainosus (ICD-10 - G43.719) [facility] Other 01-15-2024 Evaluation note* Encounter Date Diagnosis Assessment Notes Treatment Notes Treatment Clinical Notes Apr, Intractable chronic migraine without aura and without status migrainosus (ICD-10 - G43.719) [facility] Other 01-08-2024 Evaluation note* Encounter Date Diagnosis Assessment Notes Treatment Notes Treatment Clinical Notes Apr, Intractable chronic migraine without aura and without status migrainosus (ICD-10 - G43.719) [facility] Other 01-05-2024 Evaluation note* Encounter Date Diagnosis [...] Begin Amitriptyline Stop Tizanidine. 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 May want to cut back on Zanaflex. [...] Pain in left shoulder (ICD-10 - M25.512) [facility] Other 06-30-2023 Evaluation note* Encounter Date Diagnosis Assessment Notes Treatment Notes Treatment Clinical Notes Sep, Type 2 diabetes mellitus with hyperglycemia, without long-term current use of insulin (ICD-10 - E11.65) [facility] Other 06-05-2023 Evaluation note* Encounter Date Diagnosis Assessment Notes Treatment Notes Treatment Clinical Notes Sep, Candidiasis, intertriginous (ICD-10 - B37.2) [facility] Other 04-12-2023 Evaluation note* Encounter Date Diagnosis [...] use, the patient reduces the risk for HI, CVA, HTN, cardiac dysrhythmias and sudden cardiac [...] Jul, Other specified hypothyroidism (ICD-10 - E03.8) [facility] Other Evaluation noteNo InformationNortRet[employer] Other History general Narrative - Reported* Type [...] CATHETERIZATION 2016 Hospitalization History SEE SURIGCAL HX [facility] Other History general Narrative - Reported* Type [...] arthroscopy 10/2022 Hospitalization History SEE SURIGCAL HX [facility] Other Reason for referral (narrative)* Reason Evaluation of right knee pain Diagnosis 1 Strain of right knee , subsequent encounter (U10.196U) Referral Organization [facility] bhupinder Referring Provider First Name Robert Referring Provider Last Name Hamilton Referring Provider Specialty Internal Me yoni Referred Provider Rishi Parker Jr Referred Provider Specialty Orthopedic S urgery Referral Priority Routine [facility] Other Reason for referral (narrative)* Reason Referral for neck pa in Diagnosis 1 Cervicalgia (M54.2) Diagnosis 2 Cervical spondylosis (M47.812) Referral Organization [facility] C bhupinder Referring Provider First Name Robert Referring Provider Last Name Hamilton Referring Provider Specialty Internal Me yoni Referred Organization [facility] Referred Address [address] [place], [place],[address] Referred Provider Specialty Pain Medicin e Referral Priority Routine General Notes Patient has hx of ce rvical discectomy and fusion and presented w/ persistent neck pain, which radiated upwards causing a headache. She is being referred for treatment with the pain clinic. Clinical Notes Include MRI [facility] Other Summary Purpose Family History No Family History Records FoundNo Family History Records FoundNo Family History Records FoundNo Family History Records FoundNo Family History Records Found Advance Directives No Advanced Directives Records FoundNo Advanced Directives Records FoundNo Advanced Directives Records FoundNo Advanced Directives Records FoundNo Advanced Directives Records Found Additional Source Comments INFORMATION SOURCE (unrecogn ized section and content) DATE CREATED AUTHOR 06/20/2018 [facility] DATE CREATED AUTHOR AUTHOR'S ORGANIZ ATION 07/04/2018 [facility] DATE CREATED AUTHOR AUTHOR'S ORGANIZ ATION 09/18/2020 [facility] DATE CREATED AUTHOR AUTHOR'S ORGANIZ ATION 08/27/2022 [facility] DATE CREATED AUTHOR AUTHOR'S ORGANIZ ATION 05/26/2023 [facility] REASON FOR VISIT (unrecogniz ed section and content) right knee painAdditional Me dicationRefillRefillsNo InformationWants in on TuesdayTBHBPsleep study ordermamm resultsMigrainesLab orderMigrainesMRI resultsmigrainesMigrainesrefills FOR RECORDS PERTAINING TO PATIENTS WHO ARE [...] BE BASED ON THE PRIMARY CLINICAL RECORDS. [facility] [facility]. provides no warranty or guarantee of the accuracy or completeness of information in this document.
[2023-06-06 06:44] VITALS: BP 156/93; PULSE 84; RESP 16; TEMP 36.1; O2SAT 98
[2023-06-06 06:49] LABS: Glucometer 92 mg/dL (74-106)
[2023-06-06] MEDS: BUPIVACAINE HCL 0.25% PF 25 MG/10 ML VIAL INJ (07:39)
[2023-06-06 07:40] VITALS: BP 138/73; BP 163/73; PULSE 68; PULSE 71; RESP 18; O2SAT 97
[2023-06-06] MEDS: LIDOCAINE HCL 2% PF 100 MG/5 ML VIAL INJ (07:40)
--- NOTE | 2023-06-06 07:43 | W.PM.PROCNOT ---
Date of procedure: 06/06/23 Pre-op diagnosis: Cervical spondylosis Post-op diagnosis: same as pre-op Procedure: Procedure: Bilateral C2-3, 3-4 medial branch block Medications: Bupivacaine 0.25% 6cc The patient was seen and examined in the preoperative holding area.? The informed consent was obtained and placed on the chart.? The patient was brought to the medical procedure unit and placed in the prone position.? A timeout was completed verifying correct patient, procedure site, positioning, plan, and special equipment.? Using aseptic technique, the needle was placed at left C2.? Under direct fluoroscopic visualization, a Quincke tip needle was advanced to the midpoint of the waist of the articular pillar at the respective medial branch segment. The above-mentioned injectate was placed in a 1 mL aliquot proceeded by negative aspiration.? The needle was removed.? The procedure was completed at all left C3, 4. The same procedure, at the same levels, was then completed on the right side. Insertion site was covered.? Patient was taken to the postprocedural recovery area and monitored for an appropriate length of time before found suitable for discharge in the accompaniment of a responsible adult. Anesthesia: Local Surgeon: Miriam Barron Pathology: none sent Condition: stable Disposition: no change
== END 2023-06-06 07:46 | disposition home or self-care (01) ==
PROVIDERS: PCP Internal Medicine; Visit Provider Anesthesiology
DX: M47.812 Spondylosis without myelopathy or radiculopathy, cervical region (principal)
CPT/HCPCS: 36415; 64490; 64491; J0665

== ENCOUNTER 2023-06-20 11:26 | Outpatient (OUT) | payer BC, SELFPAY ==
--- OUTSIDE RECORDS SUMMARY | 2023-06-20 11:41 | XMS_ITS | CCD ---
Author Name Unknown Address [address] [place] [address] Organization [facility] Care Team Providers Care Car Wash Manager Name Role Phone JENNA LENTZ Admitting Unavailable [...] Unavailable ZIEBER, DR BERNY Mccabe Consulting Unavailable HAMILTON, DR NINO Consulting Unavailable BALL, DR NINO Primary Care Unavailable BALL, DR NINO Admitting Unavailable BALL, DR NINO Attending Unavailable BALL, DR NINO Primary Care Unavailable WALTERYESSENIA AYOUB Attending Unavailable WALTER, YESSENIA Consulting Unavailable WALTER, YESSENIA Admitting Unavailable PRISCILLA ., DR MAZARIEGOS Attending Unavailable PRISCILLA ., DR MAZARIEGOS Consulting Unavailable PRISCILLA ., DR MAZARIEGOS Admitting Unavailable HAMILTON, DR NINO Primary Care Unavailable Anderson HENLEY, Miriam Stephenson Attending Unavailable Anderson HENLEY, Miriam Stephenson Attending Unavailable Allergies Allergy Classification Reported Allergen(s) Allergy Type Date of Onset Reaction(s) Facility (2 sources) Contrast media; Translations: [CONTRAST DYE] Propensity to adverse reactions to drug (disorder) 09-30-19 11 [facility] Repository (2 sources) HYDROmorphone; Translations: [HYDROMORPHONE (BULK)] Drug Allergy 08-17-19 17 [facility] Repository (20 sources) Latex; Translations: [LATEX] Propensity to adverse reactions to drug (disorder) 09-30-19 11 Unknown [facility] Repository (2 sources) Meperidine; Translations: [MEPERIDINE (PF)] Drug Allergy 09-30-19 11 [facility] Repository (2 sources) Povidone-Iodine; Translations: [POVIDONE-IODINE] Drug Allergy 10-21-19 17 [facility] Repository (2 sources) SUMAtriptan; Translations: [SUMATRIPTAN SUCCINATE] Drug Allergy 09-30-19 11 [facility] Repository (2 sources) INFLUENZA VACCINE TRI-SP 09-10; Translations: [INFLUENZA VACCINE TRI-SP 09-10] Propensity to adverse reactions to drug (disorder) 09-30-19 11 [facility] Repository (3 sources) DHE; Translations: [DHE] Propensity to adverse reactions to drug (disorder) 10-24-19 13 [facility] Repository (17 sources) HYDROmorphone Drug Allergy Unknown [email or web address] Other (18 sources) Iodine; Translations: [iodine] Drug Allergy 10-24-19 13 Unknown [facility] Repository (17 sources) Meperidine Drug Allergy Unknown [email or web address] Other (17 sources) SUMAtriptan Drug Allergy Unknown [email or web address] Other (17 sources) Fluad Drug allergy Unknown [email or web address] Other (17 sources) DHEA Drug allergy Unknown [email or web address] Other (1 source) HYDROmorphone Drug Allergy 10-24-19 13 [facility] Repository (1 source) Meperidine Drug Allergy 10-24-19 13 [facility] Repository (1 source) Plasmin Drug Allergy 10-24-19 13 [facility] Repository (12 sources) influenza A virus (H1N1) antigen / influenza A virus (H3N2) antigen / influenza B virus antigen Drug Allergy 11-21-19 14 Comment:FLU VACCINE [email or web address] Other (12 sources) Contraindication to Flu Injection Propensity to adverse reactions 03-07-20 Comment:advers e rxn/side effects [email or web address] Other (3 sources) patient allergy list reviewed by nurse or physicia Propensity to adverse reactions 12-22-19 14 Comment:Done [email or web address] Other Medications Current Medications Medication Drug Class(es) [...] Start: 12-28-2022 take 3 tablets by mo uth once daily at bedtime clonazePAM 0.5 MG TAKE 3 TABLETS BY MOUTH AT BEDTIME Orally Once a day for 30 days Dec, Active Start: 09-30-2022 take 3 tablets by mo uth at bedtime clonazePAM 0.5 MG TAKE 3 [...] every two hours as needed for headache Maxalt-MINE SAFETY ENGINEER 10 MG 1 tablet Orally PRN headache, may repeat q 2 hours as needed, max 30mg/24 hours for 90 days Aware of allergy - patient has taken in past with no problems, please fill Oct, Active Rizatriptan Sae oate 10 MG TAKE [...] BERNY CANO Date: 2022-08-24 07:19 Normal [facility] CBC AUTO DIFFon 03-30-2022 BASO # 0.0 103/ul Normal 0.0-0.1 [facility] Comment on above: Performed By: #### C BC #### [facility] [address] [address] [address] Rc Foster Basophils/100 WBC (Bld) 0.4 % Normal 0.2-2.0 [facility] Comment on above: Performed By: #### C BC #### [facility] [address] [address] [address] Rc Foster EO # 0.3 103/ul Normal 0.0-0.7 [facility] Comment on above: Performed By: #### C BC #### [facility] [address] [address] [address] Rc Foster Eosinophils/100 WBC (Bld) 4.9 % Normal 0.9-7.0 [facility] Comment on above: Performed By: #### C BC #### [facility] [address] [address] [address] Rc Foster Erythrocyte distribution width (RBC) [Ratio] 12.2 % Normal 11.0-15.0 [facility] Comment on above: Performed By: #### C BC #### [facility] [address] [address] [address] Rc Foster Hematocrit (Bld) [Volume fraction] 39.8 % Normal 36.0-48.0 [facility] Comment on above: Performed By: #### C BC #### [facility] [address] [address] [address] Rc Foster Hemoglobin (Bld) [Mass/Vol] 13.1 g/dL Normal 12.0-16.0 [facility] Comment on above: Performed By: #### C BC #### [facility] [address] [place] [address] Dr. Rc Foster IG # 0.02 10e3/ul Normal 0.00-0.03 [facility] Comment on above: Performed By: #### C BC #### [facility] [address] [place] [address] Dr. Rc Foster IG % 0.4 % Normal 0.0-0.5 [facility] Comment on above: Performed By: #### C BC #### [facility] [address] [place] [address] Dr. Rc Foster LYMPH # 2.1 103/ul Normal 1.2-3.8 [facility] Comment on above: Performed By: #### C BC #### [facility] [address] [place] [address] Dr. Rc Foster Lymphocytes/100 WBC (Bld) 37.1 % Normal 20.5-60.0 [facility] Comment on above: Performed By: #### C BC #### [facility] [address] [place] [address] Dr. Rc Foster MANUAL DIFF REQ NO Normal [facility] Comment on above: Performed By: #### C BC #### [facility] [address] [place] [address] Dr. Rc Foster MCH (RBC) [Entitic mass] 28.7 pg Normal 26.7-34.0 [facility] Comment on above: Performed By: #### C BC #### [facility] [address] [place] [address] Dr. Rc Foster MCHC (RBC) [Mass/Vol] 32.9 g/dL Normal 29.9-35.2 [facility] Comment on above: Performed By: #### C BC #### [facility] [address] [place] [address] Dr. Rc Foster MCV (RBC) [Entitic vol] 87.1 fL Normal 81.0-99.0 [facility] Comment on above: Performed By: #### C BC #### [facility] [address] [place] [address] Dr. Rc Foster MONO # 0.4 103/ul Normal 0.3-0.8 [facility] Comment on above: Performed By: #### C BC #### [facility] [address] [place] [address] Dr. Rc Foster Monocytes/100 WBC (Bld) 6.7 % Normal 1.7-12.0 [facility] Comment on above: Performed By: #### C BC #### [facility] [address] [place] [address] Dr. Rc Foster NEUT # 2.9 103/ul Normal 1.4-6.5 [facility] Comment on above: Performed By: #### C BC #### [facility] [address] [place] [address] Dr. Rc Foster Neutrophils/100 WBC (Bld) 50.5 % Normal 43.0-75.0 [facility] Comment on above: Performed By: #### C BC #### [facility] [address] [place] [address] Dr. Rc Foster Platelet mean volume (Bld) [Entitic vol] 9.7 fL Normal 9.5-13.5 [facility] Comment on above: Performed By: #### C BC #### [facility] [address] [place] [address] Dr. Rc Foster PLT 189 103/ul Normal 150-450 [facility] Comment on above: Performed By: #### C BC #### [facility] [address] [place] [address] Dr. Rc Foster RBC 4.57 106/ul Normal 4.20-5.40 [facility] Comment on above: Performed By: #### C BC #### [facility] [address] [place] [address] Dr. Rc Foster WBC 5.7 103/ul Normal 4.0-11.0 [facility] Comment on above: Performed By: #### C BC #### [facility] [address] [place] [address] Dr. Rc Foster GLYCOHEMOGLOBIN A1Con 2021 ADA RECOMMENDATION SEE BELOW Normal [facility] Comment on above: Result Comment: ADA RECOMMENDED LIMIT 4.0 - 6.0 ADA THERAPEUTIC TARGET < 7.0 ACTION SUGGESTED > 7.0 Performed By: #### A 1C #### [facility] [address] [address] [address] Rc Foster Glucose [Mass/Vol] 143 mg/dL Normal [facility] Comment on above: Performed By: #### A 1C #### [facility] [address] [address] [address] Rc Foster HbA1c (Bld) [Mass fraction] 6.6 % Critically high 4.5-6.2 [facility] Comment on above: Performed By: #### A 1C #### [facility] [address] [address] [address] Rc Foster LIPID PROFILEon 03-30-2022 CHOL-HDL RATIO NORM SEE BELOW Normal [facility] Comment on above: Result Comment: 3.3 - 4.4 LOW RISK 4.4 - 7.1 AVERAGE RISK 7.1 - 11.0 MODERATE RISK >11.0 HIGH RISK Performed By: #### T SH, CMP, LIPID ####[facility] [address] [id number] Foster Cholesterol [Mass/Vol] 184 mg/dL Normal <=200 [facility] Comment on above: Performed By: #### T SH, CMP, LIPID ####[facility] [address] [place], [place] [address]BhRodger Foster Cholesterol in HDL [Mass/Vol] 42 mg/dL Normal 40-60 [facility] Comment on above: Performed By: #### T SH, CMP, LIPID ####[facility] [address] [place], [place] [address]HiRodger Foster Cholesterol in LDL [Mass/Vol] 87.0 mg/dL Normal [facility] Comment on above: Performed By: #### T SH, CMP, LIPID ####[facility] [address] [place], [place] [address]UgRodger Foster Cholesterol.total/Chol esterol in HDL [Mass ratio] 4.4 {ratio} Normal [facility] Comment on above: Performed By: #### T SH, CMP, LIPID ####[facility] [address] [address]Dr. Rc Foster HDL NORMAL > or = 60 mg/dl - LO W CARDIOVASCULAR RISK <40 mg/dl - HIGH CARDIOVASCULAR RISK Normal [facility] Comment on above: Performed By: #### T SH, CMP, LIPID ####[facility] [address] [address]Dr. Rc Foster LDL CALC NORMAL SEE BELOW Normal [facility] Comment on above: Result Comment: <100 mg/dl OPTIMAL 100 - 129 mg/dl NEAR OR ABOVE OPTIMAL 130 - 159 mg/dl BORDERLINE HIGH 160 - 189 mg/dl HIGH >190 mg/dl VERY HIGH Performed By: #### T SH, CMP, LIPID ####[facility] [address] [address]Dr. Rc Foster Triglyceride [Mass/Vol] 275 mg/dL Critically high <=150 [facility] Comment on above: Performed By: #### T SH, CMP, LIPID ####[facility] [address] [address]Dr. Rc Foster VLDL CALC 55.0 mg/dL Normal [facility] Comment on above: Performed By: #### T SH, CMP, LIPID ####[facility] [address] [address]Dr. Rc Foster PROF 14(COMP METB)on 022 Albumin [Mass/Vol] 4.0 g/dL Normal 3.4-5.0 [facility] Comment on above: Performed By: #### T SH, CMP, LIPID ####[facility] [address] [address]Dr. Rc Foster Albumin/Globulin [Mass ratio] 1.1 {ratio} Normal [facility] Comment on above: Performed By: #### T SH, CMP, LIPID ####[facility] [address] [id number]. Rc Foster ALP [Catalytic activity/Vol] 71 U/L Normal 46-116 [facility] Comment on above: Performed By: #### T SH, CMP, LIPID ####[facility] [address] [id number]. Rc Foster ALT [Catalytic activity/Vol] 29 U/L Normal 14-59 [facility] Comment on above: Performed By: #### T SH, CMP, LIPID ####[facility] [address] [phone]. Siribreanna Foster Anion gap [Moles/Vol] 13.2 mmol/L Normal [facility] Comment on above: Performed By: #### T SH, CMP, LIPID ####[facility] [address] [address]Dr. Rc Foster AST [Catalytic activity/Vol] 17 U/L Normal 15-37 [facility] Comment on above: Performed By: #### T SH, CMP, LIPID ####[facility] [address] [address]Dr. Rc Foster Bilirubin [Mass/Vol] 0.6 mg/dL Normal 0.2-1.0 [facility] Comment on above: Performed By: #### T SH, CMP, LIPID ####[facility] [address] [address]Dr. Rc Foster Calcium [Mass/Vol] 9.0 mg/dL Normal 8.5-10.1 [facility] Comment on above: Performed By: #### T SH, CMP, LIPID ####[facility] [address] [address]Dr. Siribreanna Foster Chloride [Moles/Vol] 102 mmol/L Normal 98-107 [facility] Comment on above: Performed By: #### T SH, CMP, LIPID ####[facility] [address] [address]Dr. Rc Foster CO2 [Moles/Vol] 27.3 mmol/L Normal 21.0-32.0 [facility] Comment on above: Performed By: #### T SH, CMP, LIPID ####[facility] [address] [address]Dr. Rc Foster Creatinine [Mass/Vol] 1.00 mg/dL Normal 0.55-1.02 [facility] Comment on above: Performed By: #### T SH, CMP, LIPID ####[facility] [address] [address]Dr. Rc Foster EGFR-AF BARBADIAN >60 Normal >=60 [facility] Comment on above: Performed By: #### T SH, CMP, LIPID ####[facility] [address] [address]Dr. Rc Foster EGFR-NON AF BARBADIAN 56 mL/min/1.73m2 Critically low >=60 [facility] Comment on above: Performed By: #### T SH, CMP, LIPID ####[facility] [address] [address]Dr. Rc Foster Globulin (S) [Mass/Vol] 3.5 g/dL Normal [facility] Comment on above: Performed By: #### T SH, CMP, LIPID ####[facility] [address] [address]Dr. Rc Foster Glucose [Mass/Vol] 159 mg/dL Critically high 74-106 [facility] Comment on above: Performed By: #### T MARY JANE, CMP, LIPID ####[facility] [address] [address]Dr. Rc Foster Potassium [Moles/Vol] 4.5 mmol/L Normal 3.5-5.1 [facility] Comment on above: Performed By: #### T SH, CMP, LIPID ####[facility] [address] [address]Dr. Rc Foster Protein [Mass/Vol] 7.5 g/dL Normal 6.4-8.2 [facility] Comment on above: Performed By: #### T SH, CMP, LIPID ####[facility] [address] [address]Dr. Rc Foster Sodium [Moles/Vol] 138 mmol/L Normal 136-145 [facility] Comment on above: Performed By: #### T SH, CMP, LIPID ####[facility] [address] [place], [place] [address]Dl. Rc Foster Urea nitrogen [Mass/Vol] 23.0 mg/dL Critically high 7.0-18.0 [facility] Comment on above: Performed By: #### T SH, CMP, LIPID ####[facility] [address] [place], [place] [address]Mi. Rc Foster Urea nitrogen/Creatinine [Mass ratio] 23.0 mg/mg Normal [facility] Comment on above: Performed By: #### T SH, CMP, LIPID ####[facility] [address] [place], [place] [address]Fo. Rc Foster TSHon 03-30-2022 TSH 2.807 uIU/mL Normal 0.358-3.740 [facility] Comment on above: Performed By: #### T MARY JANE, CMP, LIPID ####[facility] [address] [place], [place] [address]Xn. Rc Foster US THYROIDon 03-30-2022 US THYROID [...] BERNY CANO Date: 2022-03-30 11:03 Normal [facility] MG MAMM SCREEN 3D LEX CADon 03-19-2022 MG MAMM SCREEN 3D LEX CAD Patient: CARROLL HARDEN Exam Date: 03/19/2022 : 1960 Gender:F Ordering : DR ROBERT CRUZ D.O. Admission #: [id number] Family : Order #: [id number] CLICK HERE TO VIEW EXAM RADIOLOGY REPORT [...] Treatments None Family Cancers None LOCATION: [facility] BREAST COMPOSITION: Scattered areas fibroglandular [...] M.D. on 03/23/2022 at 11:59 Normal [facility] CBC AUTO DIFFon 11-27-2021 BASO # 0.0 103/ul Normal 0.0-0.1 [facility] Comment on above: Performed By: #### C BC #### [facility] [address] [address] [address] Rc Foster Basophils/100 WBC (Bld) 0.7 % Normal 0.2-2.0 [facility] Comment on above: Performed By: #### C BC #### [facility] [address] [id number] Rc Foster EO # 0.6 103/ul Normal 0.0-0.7 [facility] Comment on above: Performed By: #### C BC #### [facility] [address] [place] [address] Dr. Rc Foster Eosinophils/100 WBC (Bld) 10.3 % Critically high 0.9-7.0 [facility] Comment on above: Performed By: #### C BC #### [facility] [address] [place] [address] Dr. Rc Foster Erythrocyte distribution width (RBC) [Ratio] 12.4 % Normal 11.0-15.0 [facility] Comment on above: Performed By: #### C BC #### [facility] [address] [place] [address] Dr. Rc Foster Hematocrit (Bld) [Volume fraction] 41.2 % Normal 36.0-48.0 [facility] Comment on above: Performed By: #### C BC #### [facility] [address] [place] [address] Dr. Rc Foster Hemoglobin (Bld) [Mass/Vol] 13.4 g/dL Normal 12.0-16.0 [facility] Comment on above: Performed By: #### C BC #### [facility] [address] [place] [address] Dr. Rc Foster IG # 0.01 10e3/ul Normal 0.00-0.03 [facility] Comment on above: Performed By: #### C BC #### [facility] [address] [place] [address] Dr. Rc Foster IG % 0.2 % Normal 0.0-0.5 [facility] Comment on above: Performed By: #### C BC #### [facility] [address] [place] [address] Dr. Rc Foster LYMPH # 2.3 103/ul Normal 1.2-3.8 [facility] Comment on above: Performed By: #### C BC #### [facility] [address] [place] [address] Dr. Rc Foster Lymphocytes/100 WBC (Bld) 40.6 % Normal 20.5-60.0 [facility] Comment on above: Performed By: #### C BC #### [facility] [address] [place] [address] Dr. Rc Foster MANUAL DIFF REQ NO Normal [facility] Comment on above: Performed By: #### C BC #### [facility] [address] [place] [address] Dr. Rc Foster MCH (RBC) [Entitic mass] 28.8 pg Normal 26.7-34.0 [facility] Comment on above: Performed By: #### C BC #### [facility] [address] [place] [address] Dr. Rc Foster MCHC (RBC) [Mass/Vol] 32.5 g/dL Normal 29.9-35.2 [facility] Comment on above: Performed By: #### C BC #### [facility] [address] [place] [address] Dr. Rc Foster MCV (RBC) [Entitic vol] 88.6 fL Normal 81.0-99.0 [facility] Comment on above: Performed By: #### C BC #### [facility] [address] [place] [address] Dr. Rc Foster MONO # 0.4 103/ul Normal 0.3-0.8 [facility] Comment on above: Performed By: #### C BC #### [facility] [address] [place] [address] Dr. Rc Foster Monocytes/100 WBC (Bld) 7.6 % Normal 1.7-12.0 [facility] Comment on above: Performed By: #### C BC #### [facility] [address] [place] [address] Dr. Rc Foster NEUT # 2.3 103/ul Normal 1.4-6.5 [facility] Comment on above: Performed By: #### C BC #### [facility] [address] [place] [address] Dr. Rc Foster Neutrophils/100 WBC (Bld) 40.6 % Critically low 43.0-75.0 [facility] Comment on above: Performed By: #### C BC #### [facility] [address] [address] [address] Rc Foster Platelet mean volume (Bld) [Entitic vol] 9.6 fL Normal 9.5-13.5 [facility] Comment on above: Performed By: #### C BC #### [facility] [address] [place] [address] Dr. Rc Foster PLT 194 103/ul Normal 150-450 [facility] Comment on above: Performed By: #### C BC #### [facility] [address] [address] Dr[address] Rc Foster RBC 4.65 106/ul Normal 4.20-5.40 [facility] Comment on above: Performed By: #### C BC #### [facility] [address] [place] [address] Dr. Rc Foster WBC 5.5 103/ul Normal 4.0-11.0 [facility] Comment on above: Performed By: #### C BC #### [facility] [address] [place] [address] Dr. Rc Foster GLYCOHEMOGLOBIN A1Con 2021 ADA RECOMMENDATION SEE BELOW Normal [facility] Comment on above: Result Comment: ADA RECOMMENDED LIMIT 4.0 - 6.0 ADA THERAPEUTIC TARGET < 7.0 ACTION SUGGESTED > 7.0 Performed By: #### A 1C #### [facility] [address] [place] [address] Dr. Rc Foster Glucose [Mass/Vol] 131 mg/dL Normal [facility] Comment on above: Performed By: #### A 1C #### [facility] [address] [place] [address] Dr. Rc Foster HbA1c (Bld) [Mass fraction] 6.2 % Normal 4.5-6.2 [facility] Comment on above: Performed By: #### A 1C #### [facility] [address] [place] [address] Dr. Rc Foster PROF CHEM 8 (BAS METB)on Anion gap [Moles/Vol] 15.2 mmol/L Normal [facility] Comment on above: Performed By: #### T SH, BMP #### [facility] [address] [place] [address] Dr. Rc Fostre Calcium [Mass/Vol] 8.5 mg/dL Normal 8.5-10.1 [facility] Comment on above: Performed By: #### T SH, BMP #### [facility] [address] [place] [address] Dr. Rc Foster Chloride [Moles/Vol] 100 mmol/L Normal 98-107 [facility] Comment on above: Performed By: #### T SH, BMP #### [facility] [address] [place] [address] Dr. Rc Foster CO2 [Moles/Vol] 26.6 mmol/L Normal 21.0-32.0 [facility] Comment on above: Performed By: #### T SH, BMP #### [facility] [address] [place] [address] Dr. Rc Foster Creatinine [Mass/Vol] 1.15 mg/dL Critically high 0.55-1.02 [facility] Comment on above: Performed By: #### T SH, BMP #### [facility] [address] [place] [address] Dr. Rc Foster EGFR-AF BARBADIAN 58 mL/min/1.73m2 Critically low >=60 [facility] Comment on above: Performed By: #### T SH, BMP #### [facility] [address] [place] [address] Dr. Rc Foster EGFR-NON AF BARBADIAN 48 mL/min/1.73m2 Critically low >=60 [facility] Comment on above: Performed By: #### T SH, BMP #### [facility] [address] [place] [address] Dr. Rc Foster Glucose [Mass/Vol] 211 mg/dL Critically high 74-106 [facility] Comment on above: Performed By: #### T SH, BMP #### [facility] [address] [place] [address] Dr. Rc Foster Potassium [Moles/Vol] 4.8 mmol/L Normal 3.5-5.1 [facility] Comment on above: Performed By: #### T SH, BMP #### [facility] [address] [place] [address] Dr. Rc Foster Sodium [Moles/Vol] 137 mmol/L Normal 136-145 [facility] Comment on above: Performed By: #### T SH, BMP #### [facility] [address] [place] [address] Dr. Rc Foster Urea nitrogen [Mass/Vol] 33.0 mg/dL Critically high 7.0-18.0 [facility] Comment on above: Performed By: #### T MARY JANE, BMP #### [facility] [address] [place] [address] Dr. Rc Foster Urea nitrogen/Creatinine [Mass ratio] 28.7 mg/mg Normal [facility] Comment on above: Performed By: #### T MARY JANE, BMP #### [facility] [address] [place] [address] Dr. Rc Foster TSHon 11-27-2021 TSH 0.744 uIU/mL Normal 0.358-3.740 [facility] Comment on above: Performed By: #### T MARY JANE, BMP #### [facility] [address] [place] [address] Dr. Rc Foster SYMPTOMATIC COVID-19 ANTIGEN on 10-28-2021 EUA Statement SEE BELOW Normal [facility] Comment on above: Result Comment: This [...] revoked sooner. Performed By: #### C VDAGS ####[facility] [address] [place], [place] [address]LlDr. Rc Foster SARS-CoV-2 (COVID-19) RNA YARED+probe Ql (Unsp spec) Negative Normal NEGATIVE [facility] Comment on above: Performed By: #### C VDAGS ####[facility] [address] [place], [place] [address]DjDr. Rc Foster GLYCOHEMOGLOBIN A1Con 2021 ADA RECOMMENDATION SEE BELOW Normal [facility] Comment on above: Result Comment: ADA RECOMMENDED LIMIT 4.0 - 6.0 ADA THERAPEUTIC TARGET < 7.0 ACTION SUGGESTED > 7.0 Performed By: #### A 1C #### [facility] [address] [address] [address] Rc Foster Glucose [Mass/Vol] 128 mg/dL Normal [facility] Comment on above: Performed By: #### A 1C #### [facility] [address] [address] [address] Rc Foster HbA1c (Bld) [Mass fraction] 6.1 % Normal 4.5-6.2 [facility] Comment on above: Performed By: #### A 1C #### [facility] [address] [address] [address] Rc Foster Discharge CCD Assessmenton 0 09-06-2020 Discharge CCD Assessment [facility] Patient: CARROLL HARDEN [address] [place] [address] MR#: [id number] DISCHARGE CCD ASSESSMENT : 58 Service Date: 09/06/20 1018 Discharge CCD Assessment Assessment Patient discharged home to continue exercises, pain medication, and wound care Electronically Signed eSign Date and Time Melyssa Flores 09/06/20 1019 Tera Hernandez MD Normal [facility] GLUCOSE METERon 09-06-2020 Glucose [Mass/Vol] 126 mg/dL High 70-99 [facility] Comment on above: Order Comment: CONSE RVATION Result Comment: Fast ing GLUCOSE reference range has been updated per (ADA) [place] [employer]'s recommendation. 07/18/2018 Performed By: #### L 500.23238 ####Test performed at: [place] [address] Glucose [Mass/Vol] 205 mg/dL High 70-99 [facility] Comment on above: Order Comment: CONSE RVATION Result Comment: Fast ing GLUCOSE reference range has been updated per (ADA) [place] Diabetes Association's recommendation. 07/18/2018 Insulin per sl scale Performed By: #### L 500.53408 #### Test performed at: [place] [address] Internal Med Progress Noteon 09-06-2020 Internal Med Progress Note [facility] Patient: CARROLL HARDEN [address] [place] [address] MR#: [id number] PROGRESS NOTE - Internal Medicine : 58 Service Date: 09/06/2046 Subjective Summary of Stay Ms. Harden is [...] 4d Result Date Time B/P 117/67 09/06 08 Pulse 87 09/06 08 Pulse Ox 96 09/06 06 O2 Delivery ROOM AIR 09/07 619 Temp 36.0 09/07 619 Resp 18 09/07 619 O2 Flow Rate 3 09/04 1804 Intake [...] RES, Katarzy na MD 09/06/20 1134 Normal [facility] Orthopedic Progress Noteon 0 09-06-2020 Orthopedic Progress Note [facility] Patient: CARROLL HARDEN [address] [place] [address] MR#: [id number] PROGRESS NOTE - Orthopedic : 58 Service [...] 09/06 06 O2 Delivery ROOM AIR 09/06 06 Temp [...] RN 09/06/20 1022 Tera Hernandez MD Normal [facility] Anesthesia Noteon 09-05-2020 Anesthesia Note [facility] Patient: CARROLL HARDEN [address] [place] [address] MR#: [id number] ANESTHESIA NOTE : Service Date: 09/05/20811 Post-anesthesia [...] Signed eSign Date and Time Krystian Akers REINFORCING IRON WORKER HELPER-PHOTO GRAPHICS LIBRARIAN 09/05/20 0813 Chu Glez MD Normal [facility] BASIC MET PANELon 09-05-2020 Anion gap [Moles/Vol] 12 mmol/L Normal 6-18 [facility] Comment on above: Performed By: #### L 500.21050, L500.25886 #### Test performed at: [address] [address] Calcium [Mass/Vol] 8.7 mg/dL Normal 8.5-10.1 [facility] Comment on above: Performed By: #### L 500.42337, L500.80525 #### Test performed at: [address] [address] Chloride [Moles/Vol] 101 mmol/L Normal 98-107 [facility] Comment on above: Performed By: #### L 500.49332, L500.82250 #### Test performed at: [address] [address] CO2 [Moles/Vol] 25 mmol/L Normal 21-32 [facility] Comment on above: Performed By: #### L 500.85063, L500.88444 #### Test performed at: [address] [address] Creatinine [Mass/Vol] 1.020 mg/dL Normal 0.550-1.020 [facility] Comment on above: Performed By: #### L 500.66238, L500.16182 #### Test performed at: [address] [address] Glucose [Mass/Vol] 264 mg/dL High 70-99 [facility] Comment on above: Result Comment: Fast ing GLUCOSE reference range has been updated per (ADA) [place] Diabetes Association's recommendation. 07/18/2018 Performed By: #### L 500.92422, L500.09605 #### Test performed at: [address] [address] OSM 289 mosm/kg Normal 270-300 [facility] Comment on above: Performed By: #### L 500.40295, L500.27522 #### Test performed at: [address] [address] Potassium [Moles/Vol] 4.5 mmol/L Normal 3.5-5.1 [facility] Comment on above: Performed By: #### L 500.65440, L500.22183 #### Test performed at: [address] [address] Sodium [Moles/Vol] 134 mmol/L Low 136-145 [facility] Comment on above: Performed By: #### L 500.18416, L500.13335 #### Test performed at: [address] [address] Urea nitrogen [Mass/Vol] 17 mg/dL Normal 7-18 [facility] Comment on above: Performed By: #### L 500.54370, L500.06031 #### Test performed at: [address] [address] GFR ESTIMATEon 09-05-2020 IF AMER > 60 Normal > 60 [facility] Comment on above: Result Comment: eGFR (Estimated GFR) Units of measure:mL/min/1.73 meters sq. *CALCULATION REVISED 02/11/2015;IDMS-traceable MDRD equation eGFR is derived from the reexpressed MDRD Study equation using the following parameters: serum creatinine, age, gender and race. An eGFR<60 mL/min/1.73m2 for >3 months is consistent with chronic kidney disease. Refer to KDOQI guidelines for clinical interpretation. Performed By: #### L 500.61721, L500.55862 #### Test performed at: [place] [address] [place] [address] IF non-AFR AMER 55 Low > 60 [facility] Comment on above: Performed By: #### L 500.85143, L500.02965 #### Test performed at: [address] [address] GLUCOSE METERon 09-05-2020 Glucose [Mass/Vol] 177 mg/dL High 70-99 [facility] Comment on above: Order Comment: CONSE RVATION Result Comment: Fast ing GLUCOSE reference range has been updated per (ADA) [place] Diabetes Association's recommendation. 07/18/2018 Performed By: #### L 500.09794 #### Test performed at: [address] [address] Glucose [Mass/Vol] 310 mg/dL High 70-99 [facility] Comment on above: Result Comment: Fast ing GLUCOSE reference range has been updated per (ADA) [place] Diabetes Association's recommendation. 07/18/2018 Insulin per sl scale Performed By: #### L 500.47210 ####Test performed at: [address] [address] Glucose [Mass/Vol] 281 mg/dL High 70-99 [facility] Comment on above: Result Comment: Fast ing GLUCOSE reference range has been updated per (ADA) [place] Diabetes Association's recommendation. 07/18/2018 Insulin per sl scale Performed By: #### L 500.11179 #### Test performed at: [address] [address] Glucose [Mass/Vol] 105 mg/dL High 70-99 [facility] Comment on above: Result Comment: Fast ing GLUCOSE reference range has been updated per (ADA) [place] Diabetes Association's recommendation. 07/18/2018 Performed By: #### L 500.07071 #### Test performed at: [place] [address] [address] HGB AND HCTon 09-05-2020 Hematocrit (Bld) [Volume fraction] 37.5 % Normal 36.0-48.0 [facility] Comment on above: Performed By: #### L 200.66889 #### Test performed at: [place] [address] Hemoglobin (Bld) [Mass/Vol] 12.5 g/dL Normal 12.0-15.0 [facility] Comment on above: Performed By: #### L 200.10991 #### Test performed at: [place] [address] Internal Med Progress Noteon 09-05-2020 Internal Med Progress Note [facility] Patient: CARROLL HARDEN [address] [place] [address] MR#: [id number] PROGRESS NOTE - Internal Medicine : 58 [...] input. Disc (more content not included)... Normal [facility] OT Therapy Recommendationson 09-05-2020 OT Therapy Recommendations [facility] Patient: CARROLL HARDEN [address] [place] [address] MR#: [id number] OT THERAPY RECOMMENDATIONS : 58 Service Date: 09/05/20 1511 Therapy Recommendations Therapy Recommendations Recommendations OT evaluation completed. OT recommends HOME with FAmily assist. No further acute OT needs are indicated at this time. Electronically Signed eSign Date and Time Trupti Rojas OT 09/05/20 1512 Normal [facility] Orthopedic Progress Noteon 0 09-05-2020 Orthopedic Progress Note [facility] Patient: CARROLL HARDEN [address] [place] [address] MR#: [id number] PROGRESS NOTE - Orthopedic : 58 Service [...] Electronically Signed eSign Date and Time RUBEN HKAN 09/05/20 1429 Tera Hernandez MD Normal [facility] PT Therapy Recommendationson 09-05-2020 PT Therapy Recommendations [facility] Patient: CARROLL HARDNE [address] [place], [place] [address] MR#: [id number] PT THERAPY RECOMMENDATIONS : 58 Service Date: 09/05/20 0914 Therapy Recommendations Therapy Recommendations Recommendations PT eval complete. No further acute PT needs. Recommend d/c home /c family assist. Electronically Signed eSign Date and Time Tiffanie Bashir PT 09/05/20 0914 Normal [facility] z OT Inpatient Discharge Not juan 09-05-2020 z OT Inpatient Discharge Note [facility] Patient: CARROLL HARDEN [address] [place], [place] [address] MR#: [id number] OT INPATIENT DISCHARGE NOTE : 58 Service [...] Time Trupti Rojas OT 09/05/20 1534 Normal [facility] z OT Inpatient Evaluationon 09-05-2020 z OT Inpatient Evaluation [facility] Patient: CARROLL HARDEN [address] [place], [place] [address] MR#: [id number] OT INPATIENT EVALUATION : 58 Inpatient OT HPI Date of Service 09/05/20 Time In: 1401 Time Out: 1412 Total Treatment Time (Mins) 11 Visit Reason LATERAL RECESS STENOSIS W/ RADICULOPATHY Surgery Type/Date s/p L L4-5 LAmi, foraminotomy, decompression on 09.04.20/ Lumbar spine precautions Referral Date 09/04/20 Tx Diagnosis: LOW BACK PAIN Insurance Name [employer] PPO POS HMO Hospital Course Pt is a left hand [...] 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 Objective Precautions Lumbar [...] Excellent Nader (more content not included)... Normal [facility] z PT Inpatient Discharge Not juan 09-05-2020 z PT Inpatient Discharge Note [facility] Patient: CARROLL HARDEN [address] [place] [address] MR#: [id number] PT INPATIENT DISCHARGE NOTE : 58 Service [...] Time Tiffanie Bashir PT 09/05/20 1139 Normal [facility] z PT Inpatient Evaluationon 09-05-2020 z PT Inpatient Evaluation [facility] Patient: CARROLL HARDEN [address] [id number] MR#: [id number] PT INPATIENT EVALUATION : 58 Service Date: 09/05/20 0928 Inpatient PT HPI Date of Service 09/05/20 Time In: 0845 Time Out: 0907 Total Treatment Time (Mins) 22 Room Number 624 Visit Reason LATERAL RECESS STENOSIS W/ RADICULOPATHY Surgery Type: L L4-5 lami, foraminotomy, decompression Surgery Date: 09/04/20 Referral Date 09/04/20 Tx Diagnosis: LOW BACK PAIN Insurance Name [facility] 60 y.o female at [facility] for above sx d/t lateral recess stenosis [...] posture. 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 Pt agreeable to use of her cane [...] Time Tiffanie Bashir PT 09/05/20 1502 Normal [facility] GLUCOSE METERon 09-04-2020 Glucose [Mass/Vol] 94 mg/dL Normal 70-[facility] Comment on above: Result Comment: Fast ing GLUCOSE reference range has been updated per (ADA) [place] Diabetes [employer]'s recommendation. 07/18/2018 Performed By: #### L 500.63397 ####Test performed at: [place] [address] Internal Medicine Consultati onon 09-04-2020 Internal Medicine Consultation [facility] Patient: CARROLL HARDEN [address] [place] [address] MR#: [id number] CONSULTATION - Internal Medicine : 58 Service Date: 09/04/20 1546 History of Present Illness Referring Physician Tera [...] Entered as Reported by JORDON MATHUR on 12/11/1820 Last Action: Reviewed on 09/04/201054 by LUZ CABELLO Citalopram Hydrobromide * (CeleXA *) 40 MG TABLET 40 MG PO DAILY DEPRESSION, Ref 0 ( Reported) Entered as Reported by JORDON MATHUR on 12/11/1817 Last Action: Reviewed on 09/04/201054 by LUZ CABELLO clonazePAM * (KlonoPIN 0.5mg Tablet*) 0.5 MG TABLET 1.5 MG PO QHS RESTLESS LEG, Ref 0 ( Reported) Entered as Reported by JORDON MATHUR on 12/11/18918 Last Action: Reviewed on 09/04/201054 by LUZ CABELLO Glimepiride * (Amaryl *) 4 MG TABLET 4 MG PO DAILY, Ref 0 (Reported) Entered as Reported by JORDON MATHUR on 12/11/1816 Last Taken: 09/03/20 Last Action: Reviewed on 09/04/201054 by LUZ CABELLO Levothyroxine Sodium * (Synthroid *) 125 MCG TABLET 125 MCG PO DAILY HYPOTHROIDISM, Ref 0 (Reported) Entered as Reported by JORDON MATHUR on 12/11/1821 Last Action: Reviewed on 09/04/201054 by LUZ CABELLO Metformin HCl (Glucophage) 500 MG TABLET 500 MG PO BID DIABETES, Ref 0 (Reported) Entered as Reported by JORDON MATHUR on 12/11/1821 Last Action: Reviewed on 09/04/20 105 by LUZ CABELLO Nabumetone * (Relafen *) 500 MG TABLET 1,000 MG PO BID, Ref 0 (Reported) Entered as Reported by LUZ CABELLO on 09/04/20 1051 Last Action: Reviewed on 09/04/20 105 by [...] on 09/04/20 1049 Last Action: Reviewed on 09/04/201054 by LUZ CABELLO Rizatriptan Benzoate* (Maxalt*) 10 [...] of Systems (more content not included)... Normal [facility] OPERATIVE REPORTon 1 OPERATIVE REPORT NAME: CARROLL HARDEN MR#: [id number] SURGEON: Tera Hernandez MD DATE OF SURGERY: [...] there were no complications. TERA HERNANDEZ MD [facility] PT NAME: CARROLL HARDEN MR#: [id number] [address] [place] [address] ACCT: [id number] : 58 OPERATIVE REPORT JFS/[id number] E/S: Tera Hernandez MD 09/18/20 1207 Electronically Signed [facility] PT NAME: CARROLL HARDEN MR#: [id number] [address] [place] [address] ACCT: [id number] : 58 OPERATIVE REPORT Normal [facility] Primary Residenton Primary Resident [facility] Pt Name: CARROLL HARDEN MR#: [id number] [address] [place] [address] ACCT: [id number] [place] [address] : 58 Service Date: 09/04/20 1603 Primary Resident/Call Primary Resident: [id number] After Hours Call: [phone] Red Team Electronically Signed eSign Date and Time Ana Flanagan RES 09/16/20 1521 Normal [facility] LUMBAR SPINE 2 OR 3 VIEWSon 09-03-2020 LUMBAR SPINE 2 OR 3 VIEWS STUDY: LUMBAR SPINE 2 OR 3 VIEWS; 09/04/2020 2:57 pm INDICATION: LEFT L4-L5 LAMINECTOMY,FORAMINOT JOSE ANGEL,DECOMPRESSION. COMPARISON: None. ACCESSION NUMBER(S): [id number] ORDERING CLINICIAN: Tera Hernandez FINDINGS: Intraoperative fluoroscopy of the lumbar spine demonstrates surgical instruments posterior to L5. IMPRESSION: As above Normal [facility] CHEST PA/AP & LATERALon CHEST PA/AP & LATERAL STUDY: CHEST PA/AP LATERAL; 08/25/2020 11:00 am INDICATION: SOB/PAT. COMPARISON: None. ACCESSION NUMBER(S): [id number] ORDERING CLINICIAN: Madelyn Leslie FINDINGS: The lungs are clear without pleural effusion. Normal heart size, mediastinum, elzbieta, and pulmonary vasculature. IMPRESSION: No active disease in the chest. Normal [facility] CONSULTATION REPORTon 2020 CONSULTATION REPORT NAME: CARROLL HARDEN MR#: [id number] [employer]: Madelyn Leslie MD DATE OF CONSULTATION: 08/25/2020 [...] pulse ox is 98% on room air. [facility] PT NAME: CARROLL HARDEN MR#: [id number] [address] [place], [place] [address] ACCT: [id number] : 58 CONSULTATION HEENT: Atraumatic head. 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 IMPRESSION: 1. Preop clearance for L4-L5 disk [...] courtesy of this consultation. MADELYN LESLIE MD MS/MODL/[id number] E/S: Madelyn Leslie MD 08/26/20 4737 Electronically Signed [facility] PT NAME: CARROLL HARDEN MR#: [id number] [address] [place], [place] [address] ACCT: [id number] : 58 CONSULTATION Normal [facility] LUMB SP COMP W FLEX/EXT 6 VW S>on 08-08-2020 LUMB SP COMP W FLEX/EXT 6 VWS> STUDY: LUMB SP COMP W FLEX/EXT 6 VWS>; 08/08/2020 9:43 am INDICATION: BACK PAIN. COMPARISON: No available comparisons. ACCESSION NUMBER(S): [id number] ORDERING CLINICIAN: Tera Hernandez TECHNIQUE: 6 views [...] L5-S1 level. No evidence of instability.. Normal [facility] XR SHLDR >/=3V AP/RUSH AP/OTH R RTon [...] Jul 03 2018 10:17AM EST [id number] N [facility] ANES Holly 06-20-2018 ANES POST HNO ID: [id number] Author: Rohit Velarde Service: Anesthesiology Author Type: [...] 20, 2018 TIME: 2:38 PM PAGER/CONTACT #: [facility] ANES PREOPon 06-20-2018 ANES PREOP HNO ID: [id number] Author: Rohit Velarde Service: Anesthesiology Author Type: [...] 0.1-0.2 mL INTRADERMAL PRN Isreal R (Santos) Wood lactated ringers infusion 5-30 mL/hr INTRAVENOUS CONTINUOUS Isreal R (Santos) Wood ceFAZolin iv piggyback 2 g in D5W (iso-osmotic) 100 mL (ANCEF) 2 g INTRAVENOUS Pre-Op Once Isreal R Julio) Trent acetaminophen 1,000 mg tab(s) (TYLENOL) 1,000 mg ORAL ONCE Isreal R (Santos) Trent bupivacaine liposome (PF) 1.3 % (13.3 [...] June 20, 2018 TIME: 9:35 AM CSN: [id number] [facility] BRIEF OP NOTon 06-20-2018 BRIEF OP NOT HNO ID: [id number] Author: Kusum Francisco Service: Orthopaedic Surgery Author Type: Resident Type: Brief Op Note Filed: 06/20/2018 5:49 PM Note Text: BRIEF OP NOTE LOG ID: [id number] Surgery/Procedure Date: 06/20/2018 Incision/Procedure Start Time: 11:18 AM Incision Close/Procedure End Time: 1:17 PM Surgeon(s)/Procedural ist(s) and Lap Hand Tool(s): Surgeon(s) and Role: * Jenna Lentz - [...] 20, 2018 TIME: 5:49 PM PAGER/CONTACT #: [facility] CASE MANAGEMon 06-20-2018 CASE MANAGEM HNO ID: [id number] Author: May Herrera (Sw) Service: Care Management Author Type: Philanthropy Officer Type: Care Mgt Progress Note Filed: 06/20/2018 [...] is pcp summary of care sent via [employer] () Nurse to provide discharge instructions. TRANSPORTATION ARRANGEMENTS: Car Spouse ADDITIONAL CONTACT RESOURCES: Needs Prior to Discharge: Ready for Discharge Appointments for Next 45 Days Date Time Provider Location Dept Phone 07/03/2018 10:00 AM CAROLA BAPTISTE AT [phone] 07/03/2018 10:30 AM GABRIEL CANTU) LATOSHA AT [phone] 07/31/2018 2:15 PM JENNA LENTZ AT [phone] Pt to be discharged home to follow up as above. SIGNATURE: DARIO Saini PATIENT NAME: Carroll Harden DATE: June 20, 2018 TIME: 5:31 PM PAGER/CONTACT #: [phone] [facility] CASE MGT INIT ASSESon 2018 CASE MGT INIT ASSES HNO ID: [id number] Author: May Herrera (Sw) Service: Care Management Author Type: Philanthropy Officer Type: Care Mgt Initial Assessment Filed: 06/20/2018 [...] None Has the Patient Been in a Usp Facility in the Past 30 days? 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 O.Therapy recommend home. Spouse visiting at bedside and will transport pt home later today.Further discharge needs not anticipated.SW/TCC to follow to assist with plans for discharge. SIGNATURE: DARIO Saini PATIENT NAME: Carroll Harden DATE: June 20, 2018 TIME: 5:27 PM PAGER/CONTACT #: [phone] [facility] CONSULTon 06-20-2018 CONSULT HNO ID: [id number] Author: Dulce Green Service: General Internal Medicine [...] went to see Dr Lentz in Apr, showed advanced OA. She underwent Right Total [...] Disp: Rfl: 06/19/2018 at 0630 rizatriptan (MAXALT MINE SAFETY ENGINEER) 10 mg disintegrating tablet DISSOLVE 1 TABLET [...] the care of your patient. Dulce Green, REINFORCING IRON WORKER HELPER.ARMORED CABLE MACHINE OPERATOR June 20, 2018 4:34 PM Normal [facility] NURSING PROGon 06-20-2018 Protein mass conc HNO ID: [id number] Author: Fela (Rn) FLETCHER Phillips Service: (none) Author Type: Registered Nurse Type: Nursing Progress Note Filed: 06/20/2018 7:39 PM Note Text: Nursing Progress Note Patient Name: Carroll Harden Patient Location: [place] [id number]/[address] Daily Note: 1545. Care assumed. Pt resting [...] at bedside. 1720. Dr. Blake and Dulce IRONWORKER MACHINE OPERATOR at bedside, plan is to stay [...] note was completed by: Fela Phillips RN [facility] Protein mass conc HNO ID: [id number] Author: Wendy ValenciaRn) FLETCHER Underwood Service: Nursing Author Type: Registered Nurse Type: Nursing Progress Note Filed: 06/20/2018 10:20 AM Note Text: Nursing Progress Note Patient Name: Carroll Harden Patient Location: SUR[facility]ERY [facility] S* Daily Note:Right interscalene nerve block with ultrasound guidance with Dr. Velarde and Dr. Marlow at bedside. Patient tolerated procedure well, VSS, will continue to monitor as we wait for OR team. Resting comfortably with no complaints of pain at this time. This note was completed by: Wendy Underwood RN [facility] OPERATIVE NOon 06-20-2018 OPERATIVE NO HNO ID: [id number] Author: Jenna Lentz Service: Orthopaedic Surgery Author Type: Physician Type: Operative Report Filed: 06/20/2018 1:25 PM Note Text: [place] [id number] [place] OPERATIVE REPORT NAME: Carroll Harden [facility] #: [id number] DATE: 06/20/2018 (11:18am-1:17pm) AGE: 58 SURGEON 1: Jenna Lentz M.D. COSMETIC SURGEON: 1. Augie Coates M.D. 2. Kusum Prasad M.D. 3. Mundo Pablo OPERATION: Right total shoulder arthroplasty, biceps tenodesis. ANESTHESIA: General anesthesia with regional interscalene nerve block for postoperative pain control. PREOPERATIVE DIAGNOSIS: Right shoulder primary glenohumeral osteoarthritis. POSTOPERATIVE DIAGNOSIS: Right shoulder primary glenohumeral osteoarthritis, biceps tendinopathy. OPERATIVE INDICATIONS: The patient is a 58 year oldzeq-hnat-zho right-hand dominant white female who has a [...] rotator interval stitch was then passed in mtsxzs-fa-yhvqz fashion with a #2 Ticron suture and tied down to close the lateral rotator interval and set the osteotomy superiorly. The two #2 Fiberwire sutures coming out of the bicipital groove were then sequentially passed in a yxhxqf-yj-yvaik fashion medial to the horizontal mattress and [...] none COMPLICATIONS: none apparent Jenna Lentz M.D. [facility] PT EDon 06-20-2018 PT ED HNO ID: [id number] Author: Cindy ValenciaRn) FLETCHER Griffin Service: (none) [...] Signed By: Cindy Griffin RN In Department: [facility] THERAPY NTon 06-20-2018 THERAPY NT HNO ID: [id number] Author: Abi ValenciaOtTyesha Phillips Service: Occupational Therapy Author Type: Occupational Therapist Type: Therapy (PT/OT/Speech/Resp) Filed: 06/20/2018 4:59 PM Note Text: Occupational Therapy Evaluation SERVICE DATE: 06/20/2018 SERVICE TIME: 1550 to 1640 ROOM: [address] Recommended Discharge Disposition: Home Anticipated Discharge [...] living (ADL) Interventions Provided: Evaluation;Therapeuti c Exercise (78868);Self Halfway Management (88791) $ Evaluation-Low (81808) Billed Units: 1 unit Therapeutic Exercise (63303) Treatment Minutes: 10 1 unit Skilled Intervention(s): Education in Self Halfway Management (02879) Treatment Minutes: 28 2 units Skilled Intervention(s): [...] Environment Patient Lives With: Spouse Assistance Available: night time nanny Number Of Stairs To Bed/Bath: 0 Equipment [...] complete details for this therapy evaluation/treatment. SIGNATURE: Abi Phillips OTR/L PATIENT NAME: Carroll Harden DATE: June 20, 2018 TIME: 4:54 PM [facility] XR SHOULDER 2V AP/TRUE AP RT on 06-20-2018 XR SHOULDER 2V AP/TRUE AP RT * * *Final Report* * * DATE OF EXAM: Jun 20 2018 1:45PM MOYX 5255 - XR SHOULDER 2V AP/TRUE AP [...] report reviewed and electronically signed by: VALDEZ ANTNO MD on Jun 20 2018 2:04PM EST [id number] N Normal [facility] NURSING PROGon 06-09-2018 Protein mass conc HNO ID: [id number] Author: Ivana (Rn) FLETCHER Heller Service: Nursing [...] 2018 11:10 AM Addendum 06/15/18 EKG IN EPIC FINAL Ivana Heller RN June 15, 2018 4:39 PM Normal [facility] Type and SCR (30D)on 019 ABO/RH(D) Positive Normal [facility] HOSPon 04-28-2018 HOSP Patient:Adalberto Harden MRN: Height:5' 2 (1.575 m) Weight:186 lb (84.369 kg) Outpatient Medications as of 06/20/18: calcium phosphate dibas/vit D3 (VITAMIN D, WITH CALCIUM, ORAL) docusate sodium (COLACE) 100 mg capsule aspirin, enteric coated (ECOTRIN LOW STRENGTH) 81 mg EC tablet oxyCODONE-acetaminoph en (PERCOCET) 5-325 mg tablet rizatriptan (MAXALT MINE SAFETY ENGINEER) 10 mg disintegrating tablet mupirocin (BACTROBAN) 2 [...] 46.0 36.0 Progress Notes (RADIO CT SCAN [facility]): RT Lillian, Tech 06/07/2018 10:04 AM [...] RT Lillian June 07, 2018 9:54 AM [facility] Vital Signs Date Time Vital Sign Value Performing Clinician Facility 04-29-2023 09:00-0500 Body height 154.94 cm Robert Cruz Other [email or web address] Other 04-29-2023 09:00-0500 Body mass index (BMI) [Ratio] 33.14 kg/m2 Robert Zang Other [email or web address] Other 04-29-2023 09:00-0500 Body weight 79.56 kg Robert Zang Other [email or web address] Other 04-29-2023 09:00-0500 Diastolic blood pressure 89 mm[Hg] Robert Zang Other [email or web address] Other 04-29-2023 09:00-0500 Respiratory rate 12 /min Robert Ball Other [email or web address] Other 04-29-2023 09:00-0500 Systolic blood pressure 155 mm[Hg] Robert Ball Other [email or web address] Other 12-20-2022 13:45-0400 Body height 154.94 cm Robert Ball Other [email or web address] Other 12-20-2022 13:45-0400 Body mass index (BMI) [Ratio] 34.12 kg/m2 Robert Ball Other [email or web address] Other 12-20-2022 13:45-0400 Body weight 81.92 kg Robert Ball Other [email or web address] Other 12-20-2022 13:45-0400 Diastolic blood pressure 96 mm[Hg] Robert Ball Other [email or web address] Other 12-20-2022 13:45-0400 Respiratory rate 12 /min Robert Ball Other [email or web address] Other 12-20-2022 13:45-0400 Systolic blood pressure 179 mm[Hg] Robert Ball Other [email or web address] Other 08-04-2022 09:45-0400 Body height 154.94 cm Robert Ball Other [email or web address] Other 08-04-2022 09:45-0400 Body mass index (BMI) [Ratio] 33.33 kg/m2 Robert Ball Other [email or web address] Other 08-04-2022 09:45-0400 Body weight 80.02 kg Robert Ball Other [email or web address] Other 08-04-2022 09:45-0400 Diastolic blood pressure 77 mm[Hg] Robert Cruz Other [email or web address] Other 08-04-2022 09:45-0400 Respiratory rate 12 /min Robert Ball Other [email or web address] Other 08-04-2022 09:45-0400 Systolic blood pressure 128 mm[Hg] Robert Cruz Other [email or web address] Other Encounters Encounter Date Encounter Type Care Provider Facility Start: 06-06-2023 End: 06-07-2023 ambulatory Miriam Barron MD Facility:[facility] Start: 06-01-2023 End: 06-01-2023 ambulatory Robert Cruz Other [email or web address] Other Start: 06-01-2023 Telephone encounter Robert Ball [facility] Start: 05-23-2023 End: 05-24-2023 ambulatory Miriam Barron MD Facility:[facility] Start: 05-13-2023 End: 05-13-2023 ambulatory Robert Cruz Other [email or web address] Other Start: 05-13-2023 Telephone encounter Robert Ball [facility] Start: 05-09-2023 End: 05-09-2023 ambulatory Robert Ball Other [email or web address] Other Start: 05-09-2023 Telephone encounter Robert Ball [facility] Start: 05-04-2023 End: 05-04-2023 ambulatory Robert Ball Other [email or web address] Other Start: 05-04-2023 Telephone encounter Robert Ball [facility] Start: 05-02-2023 End: 05-02-2023 ambulatory Robert Ball Other [email or web address] Other Start: 05-02-2023 Telephone encounter Robert Ball [facility] Start: 04-29-2023 End: 04-29-2023 ambulatory Robert Ball Other [email or web address] Other Start: 04-29-2023 Office outpatient vi sit 15 minutes Robert Ball [facility] Start: 04-04-2023 End: 04-04-2023 ambulatory Robert Ball Other [email or web address] Other Start: 04-04-2023 Telephone encounter Robert Ball [facility] Start: 01-24-2023 End: 01-24-2023 ambulatory Robert Ball Other [email or web address] Other Start: 01-24-2023 Telephone encounter Robert Ball [facility] Start: 12-23-2022 End: 12-23-2022 ambulatory Robert Ball Other [email or web address] Other Start: 12-23-2022 Telephone encounter Robert Ball [facility] Start: 12-20-2022 End: 12-20-2022 ambulatory Rboert Ball Other [email or web address] Other Start: 12-20-2022 Office outpatient vi sit 15 minutes Robert Cruz [facility] Start: 12-17-2022 End: 12-17-2022 ambulatory Robert Ball Other [email or web address] Other Start: 12-17-2022 Telephone encounter Robert Ball [facility] Start: 11-08-2022 End: 11-08-2022 ambulatory Robert Ball Other [email or web address] Other Start: 11-08-2022 Telephone encounter Robert Ball [facility] Start: 10-22-2022 End: 10-22-2022 ambulatory Robert Ball Other [email or web address] Other Start: 10-22-2022 Telephone encounter Robert Ball [facility] Start: 10-13-2022 End: 10-13-2022 ambulatory Robert Cruz Other [email or web address] Other Start: 10-13-2022 Telephone encounter Robert Cruz [facility] Start: 09-27-2022 End: 09-27-2022 ambulatory Robert Cruz Other [email or web address] Other Start: 09-27-2022 Telephone encounter Robert [facility]AR[facility] Start: 08-23-2022 End: 08-24-[address] RISHI PARKER Facility:[facility] Start: 08-04-2022 End: 08-04-2022 ambulatory Robert Cruz Other [email or web address] Other Start: 08-04-2022 Office outpatient vi sit 25 minutes Robert Cruz [facility] Start: 04-03-2022 Encounter for genera l adult medical examination without abnormal findings DR ROBERT CRUZ [facility] Start: 03-30-2022 End: 03-31-[address] ROBERT CRUZ Facility:[facility] Start: 03-30-2022 End: 03-31-2022 Encounter for general adult medical examination without abnormal findings DR ROBERT CRUZ Facility:[facility] Start: 03-19-2022 End: 03-20-[address] ROEBRT CRUZ Facility:[facility] Start: 02-18-2022 End: 02-19-[address] YAIR WELLS . Facility:[facility] Start: 11-27-2021 End: 11-28-[address] ROBERT CRUZ Facility:[facility] Start: 10-28-2021 End: 10-28-[address] ROBERT CRUZ Facility:[facility] Start: 09-10-2021 End: 09-11-[address] ROBERT CRUZ Facility:[facility] Start: 07-03-2018 End: 07-03-2018 Patient encounter procedure [facility] Start: 06-20-2018 End: 06-20-2018 Evaluation and management of inpatient [facility] Procedures Date Procedure Procedure Detail Performing Clinician Start: 06-07-2018 Antibody screen [facility] Payers Date Payer Category Payer Unknown 2022 [place] [id number] 2019 Unknown [id number] 1960 Self-pay [id number] 1959 Unknown [id number] 2.16.84 [id number] 1959 Unknown [id number] 2.16.84 [id number] 1959 Unknown [id number] 2.16.84 [id number] 1959 Unknown [id number] 2.16.84 [id number] 1959 Unknown [id number] 2.16.84 [id number] 1959 Unknown [id number] 2.16.84 [id number] 1959 Unknown [id number] 2.16. [id number] 1959 Unknown [id number] 2.16. [id number] Unknown [id number] 2.16.84 [id number] Social History Date Type Detail Facility Sex Assigned At [email or web address] Other Clinical Notes 08-04-2022 to 06-01-2023 Note [...] and without status migrainosus (ICD-10 - G43.719) [email or web address] Other 01-15-2024 Evaluation note* Encounter Date Diagnosis Assessment Notes Treatment Notes Treatment Clinical Notes Apr, Intractable chronic migraine without aura and without status migrainosus (ICD-10 - G43.719) [email or web address] Other 01-08-2024 Evaluation note* Encounter Date Diagnosis Assessment Notes Treatment Notes Treatment Clinical Notes Apr, Intractable chronic migraine without aura and without status migrainosus (ICD-10 - G43.719) [email or web address] Other 01-05-2024 Evaluation note* Encounter Date Diagnosis [...] Begin Amitriptyline Stop Tizanidine. 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 May want to cut back on Zanaflex. [...] Pain in left shoulder (ICD-10 - M25.512) [email or web address] Other 06-30-2023 Evaluation note* Encounter Date Diagnosis Assessment Notes Treatment Notes Treatment Clinical Notes Sep, Type 2 diabetes mellitus with hyperglycemia, without long-term current use of insulin (ICD-10 - E11.65) [email or web address] Other 06-05-2023 Evaluation note* Encounter Date Diagnosis Assessment Notes Treatment Notes Treatment Clinical Notes Sep, Candidiasis, intertriginous (ICD-10 - B37.2) [email or web address] Other 04-12-2023 Evaluation note* Encounter Date Diagnosis [...] exercise to achieve/maintain a normal BMI. Jul, STEPHANEI (obstructive sle ep apnea) (ICD-10 - G47.33) This patient is aware of the benefits associated with STEPHANIE: With continued use, the patient reduces the risk for OK, CVA, HTN, cardiac dysrhythmias and sudden cardiac [...] Jul, Other specified hypothyroidism (ICD-10 - E03.8) [email or web address] Other Evaluation noteNo [employer] Other History general Narrative - Reported* Type [...] CATHETERIZATION 2016 Hospitalization History SEE SURIGCAL HX [email or web address] Other History general Narrative - Reported* Type [...] arthroscopy 10/2022 Hospitalization History SEE SURIGCAL HX [email or web address] Other Reason for referral (narrative)* Reason Evaluation of right knee pain Diagnosis 1 Strain of right knee , subsequent encounter (O30.402X) Referral Organization [facility] Referring Provider First Name Robert Referring Provider Last Name Hamilton Referring Provider Specialty Internal Nh yoni Referred Provider Rishi Parker Jr Referred Provider Specialty Orthopedic S urgery Referral Priority Routine [email or web address] Other Reason for referral (narrative)* Reason Referral for neck pa in Diagnosis 1 Cervicalgia (M54.2) Diagnosis 2 Cervical spondylosis (M47.812) Referral Organization [facility] Referring Provider First Name Robert Referring Provider Last Name Hamilton Referring Provider Specialty Internal Nh dicine Referred Organization [facility] Referred Address [address] [place], [place],[address] Referred Provider Specialty Pain Medicin e Referral Priority Routine General Notes Patient has hx of ce rvical discectomy and fusion and presented w/ persistent neck pain, which radiated upwards causing a headache. She is being referred for treatment with the pain clinic. Clinical Notes Include MRI [email or web address] Other Summary Purpose Family History No Family History Records FoundNo Family History Records FoundNo Family History Records FoundNo Family History Records FoundNo Family History Records Found Advance Directives No Advanced Directives Records FoundNo Advanced Directives Records FoundNo Advanced Directives Records FoundNo Advanced Directives Records FoundNo Advanced Directives Records Found Additional Source Comments INFORMATION SOURCE (unrecogn ized section and content) DATE CREATED AUTHOR 06/20/2018 [facility] DATE CREATED AUTHOR AUTHOR'S ORGANIZ ATION 07/04/2018 [facility] DATE CREATED AUTHOR AUTHOR'S ORGANIZ ATION 09/18/2020 [facility] DATE CREATED AUTHOR AUTHOR'S ORGANIZ ATION 08/27/2022 [facility] DATE CREATED AUTHOR AUTHOR'S ORGANIZ ATION 06/12/2023 [facility] REASON FOR VISIT (unrecogniz ed section and [...] BE BASED ON THE PRIMARY CLINICAL RECORDS. [facility]. provides no warranty or guarantee of the accuracy or completeness of information in this document.
--- NOTE | 2023-06-22 08:27 | PM.CN ---
Consult Note: HPI Data of Consult Patient: known to practice within the last 3 years Consult date: 05/23/23 Requesting Physician: Miriam Barron MD Primary Care Provider: Robert Cruz DO Consult Narrative Reason for consult: Neck, bilateral posterior occipital pain Narrative: 63yof who presents for assessment. Persistent pain that radiates from bilateral posterior occiput to forehead. Imaging reviewed, which shows history of cervical fusion with facet arthropathy noted at C2-3, 3-4. Engaged in provider directed home exercises for >6 weeks, with minimal benefit. Has tried various medications for pain, with limited relief. Denies adverse med side effects. Patient recently underwent bilateral C2/3 C3/4 facet medial branch block #1 with >90% improvement in pain and functional ability immediately following and hours after the procedure. Patient would like to proceed with #2 working towards thermal RFA cc:: CC: Miriam Barron MD Review of Systems ROS Status of ROS 10 or more systems reviewed and unremarkable except as noted in history and below Ears, nose, mouth, and throat Reports: neck pain Meds Home Medications and Allergies Home Medications Medication Instructions Recorded Confirmed Type atenolol 50 mg tablet 50 mg PO DAILY 09/28/22 06/06/23 History citalopram 40 mg tablet (Celexa) 40 mg PO DAILY 09/28/22 06/06/23 History clonazepam 0.5 mg tablet 0.5 mg PO .3 tabs 09/28/22 06/06/23 History glimepiride 4 mg tablet 4 mg PO DAILY 09/28/22 06/06/23 History levothyroxine 125 mcg tablet 125 mcg PO DAILY 09/28/22 06/06/23 History (Synthroid) metformin 500 mg tablet 500 mg PO BID 09/28/22 06/06/23 History pravastatin 40 mg tablet 40 mg PO DAILY 09/28/22 06/06/23 History tizanidine 4 mg tablet 4 mg PO BID PRN muscle spasticity 09/28/22 06/06/23 History clonazepam 1 mg tablet (Klonopin) 1.5 mg PO DAILY 05/18/23 06/06/23 History rizatriptan 10 mg tablet (Maxalt) 10 mg PO Q2H PRN migraine headache 05/18/23 06/06/23 History olmesartan 20 mg tablet mg 06/06/23 History Allergies Allergy/AdvReac Type Severity Reaction Status Date / Time calcium [From DHEA] Allergy Severe respirator Verified 06/06/23 06:52 arrest calcium carbonate [From DHEA] Allergy Severe respirator Verified 06/06/23 06:52 arrest prasterone (DHEA) [From DHEA] Allergy Severe respirator Verified 06/06/23 06:52 arrest hydromorphone [From Dilaudid] Allergy Intermediate Verified 06/06/23 06:52 iodine Allergy Intermediate Verified 06/06/23 06:52 latex Allergy Intermediate Verified 06/06/23 06:52 meperidine [From Demerol] Allergy Intermediate Verified 06/06/23 06:52 sumatriptan [From Imitrex] Allergy Intermediate Verified 06/06/23 06:52 Exam Narrative Exam Narrative: Psych-alert and oriented x 3.? Attentive and appropriate, constitutionally normal, displays normal mood and affect per situation.? There are no obvious deficits in memory, reasoning, or intellect.? Skin-no obvious rashes, bruising, or erythema noted to the patient's area of pain. Extremities-upper extremities are warm with minimal edema and palpable pulses. Cervical- tenderness to palpation noted in the cervical spine and paraspinal musculature.?Tenderness over the bilateral occipital groove. Pain is elicited with extension, and lateral rotation of the cervical spine.? Range of motion is slightly diminished due to pain. Facet loading maneuvers are positive bilaterally.? Coordination remains intact.? Gait remains non-antalgic. Constitutional Documenting provider has reviewed patient's vital signs: yes Common normals: no apparent distress, oriented x3, healthy appearing, alert and well nourished General appearance: cooperative [facility] Common normals: normocephalic, hearing grossly normal bilaterally and moist oral mucous membranes Head and scalp: normocephalic Eye Common normals: PERRL Pupil: PERRL Neck & C-Spine Common normals: full ROM General: normal visual inspection Chest Common normals: inspection of chest normal Respiratory Common normals: normal respiratory effort, no retractions and no use of accessory muscles Neuro Common normals: oriented x3, CN's II-XII intact bilaterally, moves all extremities, no focal motor deficits, no sensory deficits noted and deep tendon reflexes 2+ bilaterally Sensorium/orientation: alert Motor exam: strength 5/5 throughout and no movement abnormalities noted Psych Common normals: mental status grossly normal, thought process normal, cooperative, affect normal, speech normal and activity/motor behavior normal Speech: normal speech Thought process: normal thought process Results Additional Findings Additional findings: I have checked an [place] report on this patient today and there are no aberrancies noted in the prescribing history.?? A drug screen was completed and reviewed within the last year, and if there has not been a drug screen completed we ordered one today to monitor higher risk, state monitored pain medication use. As part of providing excellent, safe, comprehensive care, the following was completed at our patient's visit: 1. A medication reconciliation and review to ensure accurate knowledge of current/active medications, including asking our patients to inform us about any [id number] medications or herbal remedies/nutritional supplements/alternative remedies. 2. A review to specifically ensure our patients have had annual screening for: elevated body mass index (BMI), tobacco use, screening for depression, and screening for unhealthy alcohol use. When screening is concerning, patients are provided with education and the specific recommendation to discuss the concerning health issue and treatment options with their primary care provider. Assessment and Plan Assessment and Plan (1) Bilateral occipital neuralgia: (2) Cervical spondylosis: Assessment and Plan: The patient has had over 3 months of moderate to severe neck pain with functional impairment and inadequate response to conservative care including NSAIDS (unless there are contraindication such as concurrent blood thinners), multiple oral or topical pain medications, and home exercise program/physical therapy.? Patient has completed >6 weeks of guided home exercise program and/or formal physical therapy program without relief of their symptoms.? I have reviewed the imaging of the cervical spine and no red flags were identified.? The imaging reveals radiographic findings consistent with cervical spondylosis We discussed the risks and benefits of the procedure with the patient, and we are NOT planning on using sedation as outlined in the guidelines from Medicare unless there is a documented reason that sedation would be strongly recommended.?? ?The procedure will be completed with fluoroscopic guidance.? (3) Cervical postlaminectomy syndrome: Plan proceed with Bilateral C2-3 C3-4 facet medial branch block #2 working towards thermal RFA continue current medications continue HEP as tolerated f/u 1 week after injection
== END 2023-06-20 11:27 | disposition home or self-care (01) ==
LOC: PM 11:27
PROVIDERS: PCP Internal Medicine; Visit Provider Anesthesiology
DX: M54.81 Occipital neuralgia (principal); M47.812 Spondylosis without myelopathy or radiculopathy, cervical region; M96.1 Postlaminectomy syndrome, not elsewhere classified

== ENCOUNTER 2023-06-27 06:42 | Day surgery (SDC) | payer BC, SELFPAY ==
--- OUTSIDE RECORDS SUMMARY | 2023-06-27 06:46 | XMS_ITS | CCD ---
Author Name Unknown Address [address] [place] [address] Organization [facility] Care Team Providers Care Track Mechanic Name Role Phone JENNA LENTZ Admitting Unavailable [...] adverse reactions to drug (disorder) 09-30-19 11 [facility] Repository (2 sources) HYDROmorphone; Translations: [HYDROMORPHONE (BULK)] Drug Allergy 08-17-19 17 [facility] Repository (20 sources) Latex; Translations: [LATEX] Propensity to adverse reactions to drug (disorder) 09-30-19 11 Unknown [facility] Repository (2 sources) Meperidine; Translations: [MEPERIDINE (PF)] Drug Allergy 09-30-19 11 [facility] Repository (2 sources) Povidone-Iodine; Translations: [POVIDONE-IODINE] Drug Allergy 10-21-19 17 [facility] Repository (2 sources) SUMAtriptan; Translations: [SUMATRIPTAN SUCCINATE] Drug Allergy 09-30-19 11 [facility] Repository (2 sources) INFLUENZA VACCINE TRI-SP 09-10; Translations: [INFLUENZA VACCINE TRI-SP 09-10] Propensity to adverse reactions to drug (disorder) 09-30-19 11 [facility] Repository (3 sources) DHE; Translations: [DHE] Propensity to adverse reactions to drug (disorder) 10-24-19 13 [facility] Repository (17 sources) HYDROmorphone Drug Allergy Unknown [employer] Other (18 sources) Iodine; Translations: [iodine] Drug Allergy 10-24-19 13 Unknown [facility] Repository (17 sources) Meperidine Drug Allergy Unknown [employer] Other (17 sources) SUMAtriptan Drug Allergy Unknown [employer] Other (17 sources) Fluad Drug allergy Unknown [employer] Other (17 sources) DHEA Drug allergy Unknown [employer] Other (1 source) HYDROmorphone Drug Allergy 10-24-19 13 [facility] Repository (1 source) Meperidine Drug Allergy 10-24-19 13 [facility] Repository (1 source) Plasmin Drug Allergy 10-24-19 13 [facility] Repository (12 sources) influenza A virus (H1N1) antigen / influenza A virus (H3N2) antigen / influenza B virus antigen Drug Allergy 11-21-19 14 Comment:FLU VACCINE [employer] Other (12 sources) Contraindication to Flu Injection Propensity to adverse reactions 03-07-20 Comment:advers e rxn/side effects [employer] Other (3 sources) patient allergy list reviewed by nurse or physicia Propensity to adverse reactions 12-22-19 14 Comment:Done [employer] Other Medications Current Medications Medication Drug Class(es) [...] every two hours as needed for headache [employer] 10 MG 1 tablet Orally PRN headache, [...] BERNY CANO Date: 2022-08-24 07:19 Normal [facility] CBC AUTO DIFFon 03-30-2022 BASO # 0.0 103/ul Normal 0.0-0.1 [facility] Comment on above: Performed By: #### C BC #### [facility] [address] [address] [address] Rc Foster Basophils/100 WBC (Bld) 0.4 % Normal 0.2-2.0 [facility] Comment on above: Performed By: #### C BC #### [facility] [address] [address] [address] Rc Foster EO # 0.3 103/ul Normal 0.0-0.7 [facility] Comment on above: Performed By: #### C BC #### [facility] [address] [address] [address] Rc Foster Eosinophils/100 WBC (Bld) 4.9 % Normal 0.9-7.0 [facility] Comment on above: Performed By: #### C BC #### [facility] [address] [address] [address] Rc Foster Erythrocyte distribution width (RBC) [Ratio] 12.2 % Normal 11.0-15.0 [facility] Comment on above: Performed By: #### C BC #### [facility] [address] [address] [address] Rc Foster Hematocrit (Bld) [Volume fraction] 39.8 % Normal 36.0-48.0 [facility] Comment on above: Performed By: #### C BC #### [facility] [address] [address] [address] Rc Foster Hemoglobin (Bld) [Mass/Vol] 13.1 g/dL Normal 12.0-16.0 [facility] Comment on above: Performed By: #### C BC #### [facility] [address] [place] [address] Dr. Rc Foster IG # 0.02 10e3/ul Normal 0.00-0.03 [facility] Comment on above: Performed By: #### C BC #### [facility] [address] [place] [address] Dr. Rc Foster IG % 0.4 % Normal 0.0-0.5 [facility] Comment on above: Performed By: #### C BC #### [facility] [address] [place] [address] Dr. Rc Foster LYMPH # 2.1 103/ul Normal 1.2-3.8 [facility] Comment on above: Performed By: #### C BC #### [facility] [address] [place] [address] Dr. Rc Foster Lymphocytes/100 WBC (Bld) 37.1 % Normal 20.5-60.0 [facility] Comment on above: Performed By: #### C BC #### [facility] [address] [place] [address] Dr. Rc Foster MANUAL DIFF REQ NO Normal [facility] Comment on above: Performed By: #### C BC #### [facility] [address] [place] [address] Dr. Rc Foster MCH (RBC) [Entitic mass] 28.7 pg Normal 26.7-34.0 [facility] Comment on above: Performed By: #### C BC #### [facility] [address] [place] [address] Dr. Rc Foster MCHC (RBC) [Mass/Vol] 32.9 g/dL Normal 29.9-35.2 [facility] Comment on above: Performed By: #### C BC #### [facility] [address] [place] [address] Dr. Rc Foster MCV (RBC) [Entitic vol] 87.1 fL Normal 81.0-99.0 [facility] Comment on above: Performed By: #### C BC #### [facility] [address] [place] [address] Dr. Rc Foster MONO # 0.4 103/ul Normal 0.3-0.8 [facility] Comment on above: Performed By: #### C BC #### [facility] [address] [place] [address] Dr. Rc Foster Monocytes/100 WBC (Bld) 6.7 % Normal 1.7-12.0 [facility] Comment on above: Performed By: #### C BC #### [facility] [address] [place] [address] Dr. Rc Foster NEUT # 2.9 103/ul Normal 1.4-6.5 [facility] Comment on above: Performed By: #### C BC #### [facility] [address] [place] [address] Dr. Rc Foster Neutrophils/100 WBC (Bld) 50.5 % Normal 43.0-75.0 [facility] Comment on above: Performed By: #### C BC #### [facility] [address] [place] [address] Dr. Rc Foster Platelet mean volume (Bld) [Entitic vol] 9.7 fL Normal 9.5-13.5 [facility] Comment on above: Performed By: #### C BC #### [facility] [address] [place] [address] Dr. Rc Foster PLT 189 103/ul Normal 150-450 [facility] Comment on above: Performed By: #### C BC #### [facility] [address] [place] [address] Dr. Rc Foster RBC 4.57 106/ul Normal 4.20-5.40 [facility] Comment on above: Performed By: #### C BC #### [facility] [address] [place] [address] Dr. Rc Foster WBC 5.7 103/ul Normal 4.0-11.0 [facility] Comment on above: Performed By: #### C BC #### [facility] [address] [place] [address] Dr. Rc Foster GLYCOHEMOGLOBIN A1Con 2021 ADA RECOMMENDATION SEE BELOW Normal [facility] Comment on above: Result Comment: ADA RECOMMENDED LIMIT 4.0 - 6.0 ADA THERAPEUTIC TARGET < 7.0 ACTION SUGGESTED > 7.0 Performed By: #### A 1C #### [facility] [address] [address] [address] Rc Foster Glucose [Mass/Vol] 143 mg/dL Normal [facility] Comment on above: Performed By: #### A 1C #### [facility] [address] [address] [address] Rc Foster HbA1c (Bld) [Mass fraction] 6.6 % Critically high 4.5-6.2 [facility] Comment on above: Performed By: #### A 1C #### [facility] [address] [address] [address] Rc Foster LIPID PROFILEon 03-30-2022 CHOL-HDL RATIO NORM SEE BELOW Normal [facility] Comment on above: Result Comment: 3.3 - 4.4 LOW RISK 4.4 - 7.1 AVERAGE RISK 7.1 - 11.0 MODERATE RISK >11.0 HIGH RISK Performed By: #### T SH, CMP, LIPID ####[facility] [address] [id number] Foster Cholesterol [Mass/Vol] 184 mg/dL Normal <=200 [facility] Comment on above: Performed By: #### T SH, CMP, LIPID ####[facility] [address] [place], [place] [address]LnRodger Foster Cholesterol in HDL [Mass/Vol] 42 mg/dL Normal 40-60 [facility] Comment on above: Performed By: #### T SH, CMP, LIPID ####[facility] [address] [place], [place] [address]ClRodger Foster Cholesterol in LDL [Mass/Vol] 87.0 mg/dL Normal [facility] Comment on above: Performed By: #### T SH, CMP, LIPID ####[facility] [address] [place], [place] [address]NlRodger Foster Cholesterol.total/Chol esterol in HDL [Mass ratio] 4.4 {ratio} Normal [facility] Comment on above: Performed By: #### T SH, CMP, LIPID ####[facility] [address] [address]Dr. Rc Foster HDL NORMAL > or = 60 mg/dl - LO W CARDIOVASCULAR RISK <40 mg/dl - HIGH CARDIOVASCULAR RISK Normal [facility] Comment on above: Performed By: #### T SH, CMP, LIPID ####[facility] [address] [address]Dr. Rc Foster LDL CALC NORMAL SEE BELOW Normal [facility] Comment on above: Result Comment: <100 mg/dl OPTIMAL 100 - 129 mg/dl NEAR OR ABOVE OPTIMAL 130 - 159 mg/dl BORDERLINE HIGH 160 - 189 mg/dl HIGH >190 mg/dl VERY HIGH Performed By: #### T SH, CMP, LIPID ####[facility] [address] [address]Dr. Rc Foster Triglyceride [Mass/Vol] 275 mg/dL Critically high <=150 [facility] Comment on above: Performed By: #### T SH, CMP, LIPID ####[facility] [address] [address]Dr. Rc Foster VLDL CALC 55.0 mg/dL Normal [facility] Comment on above: Performed By: #### T SH, CMP, LIPID ####[facility] [address] [address]Dr. Rc Foster PROF 14(COMP METB)on 022 Albumin [Mass/Vol] 4.0 g/dL Normal 3.4-5.0 [facility] Comment on above: Performed By: #### T SH, CMP, LIPID ####[facility] [address] [address]Dr. Rc Foster Albumin/Globulin [Mass ratio] 1.1 {ratio} Normal [facility] Comment on above: Performed By: #### T SH, CMP, LIPID ####[facility] [address] [id number]. Rc Foster ALP [Catalytic activity/Vol] 71 U/L Normal 46-116 [facility] Comment on above: Performed By: #### T SH, CMP, LIPID ####[facility] [address] [id number]. Rc Foster ALT [Catalytic activity/Vol] 29 U/L Normal 14-59 [facility] Comment on above: Performed By: #### T SH, CMP, LIPID ####[facility] [address] [id number]. Siribreanna Foster Anion gap [Moles/Vol] 13.2 mmol/L Normal [facility] Comment on above: Performed By: #### T SH, CMP, LIPID ####[facility] [address] [address]Dr. Rc Foster AST [Catalytic activity/Vol] 17 U/L Normal 15-37 [facility] Comment on above: Performed By: #### T SH, CMP, LIPID ####[facility] [address] [address]Dr. Rc Foster Bilirubin [Mass/Vol] 0.6 mg/dL Normal 0.2-1.0 [facility] Comment on above: Performed By: #### T SH, CMP, LIPID ####[facility] [address] [address]Dr. Rc Foster Calcium [Mass/Vol] 9.0 mg/dL Normal 8.5-10.1 [facility] Comment on above: Performed By: #### T SH, CMP, LIPID ####[facility] [address] [address]Dr. Siribreanna Foster Chloride [Moles/Vol] 102 mmol/L Normal 98-107 [facility] Comment on above: Performed By: #### T SH, CMP, LIPID ####[facility] [address] [address]Dr. Rc Foster CO2 [Moles/Vol] 27.3 mmol/L Normal 21.0-32.0 [facility] Comment on above: Performed By: #### T SH, CMP, LIPID ####[facility] [address] [address]Dr. Rc Foster Creatinine [Mass/Vol] 1.00 mg/dL Normal 0.55-1.02 [facility] Comment on above: Performed By: #### T SH, CMP, LIPID ####[facility] [address] [address]Dr. Rc Foster EGFR-AF [place]OU[place] >60 Normal >=60 [facility] Comment on above: Performed By: #### T SH, CMP, LIPID ####[facility] [address] [address]Dr. Rc Foster EGFR-NON AF [place] 56 mL/min/1.73m2 Critically low >=60 [facility] Comment on above: Performed By: #### T SH, CMP, LIPID ####[facility] [address] [address]Dr. Rc Foster Globulin (S) [Mass/Vol] 3.5 g/dL Normal [facility] Comment on above: Performed By: #### T SH, CMP, LIPID ####[facility] [address] [address]Dr. Rc Foster Glucose [Mass/Vol] 159 mg/dL Critically high 74-106 [facility] Comment on above: Performed By: #### T MARY JANE, CMP, LIPID ####[facility] [address] [address]Dr. Rc Foster Potassium [Moles/Vol] 4.5 mmol/L Normal 3.5-5.1 [facility] Comment on above: Performed By: #### T SH, CMP, LIPID ####[facility] [address] [address]Dr. Rc Foster Protein [Mass/Vol] 7.5 g/dL Normal 6.4-8.2 [facility] Comment on above: Performed By: #### T SH, CMP, LIPID ####[facility] [address] [address]Dr. Rc Foster Sodium [Moles/Vol] 138 mmol/L Normal 136-145 [facility] Comment on above: Performed By: #### T SH, CMP, LIPID ####[facility] [address] [place], [place] [address]Nu. Rc Foster Urea nitrogen [Mass/Vol] 23.0 mg/dL Critically high 7.0-18.0 [facility] Comment on above: Performed By: #### T SH, CMP, LIPID ####[facility] [address] [place], [place] [address]Ce. Rc Foster Urea nitrogen/Creatinine [Mass ratio] 23.0 mg/mg Normal [facility] Comment on above: Performed By: #### T SH, CMP, LIPID ####[facility] [address] [place], [place] [address]Hi. Rc Foster TSHon 03-30-2022 TSH 2.807 uIU/mL Normal 0.358-3.740 [facility] Comment on above: Performed By: #### T MARY JANE, CMP, LIPID ####[facility] [address] [place], [place] [address]Fx. Rc Foster US THYROIDon 03-30-2022 US THYROID [...] BERNY CANO Date: 2022-03-30 11:03 Normal [facility] MG MAMM SCREEN 3D LEX CADon 03-19-2022 MG MAMM SCREEN 3D LEX CAD Patient: CARROLL HARDEN Exam Date: 03/19/2022 : 1960 Gender:F Ordering : DR ROBERT CRUZ D.O. Admission #: [id number] Family : Order #: [id number] CLICK HERE TO VIEW EXAM RADIOLOGY REPORT [...] Treatments None Family Cancers None LOCATION: [facility] BREAST COMPOSITION: Scattered areas fibroglandular [...] M.D. on 03/23/2022 at 11:59 Normal [facility] CBC AUTO DIFFon 11-27-2021 BASO # 0.0 103/ul Normal 0.0-0.1 [facility] Comment on above: Performed By: #### C BC #### [facility] [address] [address] [address] Rc Foster Basophils/100 WBC (Bld) 0.7 % Normal 0.2-2.0 [facility] Comment on above: Performed By: #### C BC #### [facility] [id number] Rc Foster EO # 0.6 103/ul Normal 0.0-0.7 [facility] Comment on above: Performed By: #### C BC #### [facility] [address] [place] [address] Dr. Rc Foster Eosinophils/100 WBC (Bld) 10.3 % Critically high 0.9-7.0 [facility] Comment on above: Performed By: #### C BC #### [facility] [address] [place] [address] Dr. Rc Foster Erythrocyte distribution width (RBC) [Ratio] 12.4 % Normal 11.0-15.0 [facility] Comment on above: Performed By: #### C BC #### [facility] [address] [place] [address] Dr. Rc Foster Hematocrit (Bld) [Volume fraction] 41.2 % Normal 36.0-48.0 [facility] Comment on above: Performed By: #### C BC #### [facility] [address] [place] [address] Dr. Rc Foster Hemoglobin (Bld) [Mass/Vol] 13.4 g/dL Normal 12.0-16.0 [facility] Comment on above: Performed By: #### C BC #### [facility] [address] [place] [address] Dr. Rc Foster IG # 0.01 10e3/ul Normal 0.00-0.03 [facility] Comment on above: Performed By: #### C BC #### [facility] [address] [place] [address] Dr. Rc Foster IG % 0.2 % Normal 0.0-0.5 [facility] Comment on above: Performed By: #### C BC #### [facility] [address] [place] [address] Dr. Rc Foster LYMPH # 2.3 103/ul Normal 1.2-3.8 [facility] Comment on above: Performed By: #### C BC #### [facility] [address] [place] [address] Dr. Rc Foster Lymphocytes/100 WBC (Bld) 40.6 % Normal 20.5-60.0 [facility] Comment on above: Performed By: #### C BC #### [facility] [address] [place] [address] Dr. Rc Foster MANUAL DIFF REQ NO Normal [facility] Comment on above: Performed By: #### C BC #### [facility] [address] [place] [address] Dr. Rc Foster MCH (RBC) [Entitic mass] 28.8 pg Normal 26.7-34.0 [facility] Comment on above: Performed By: #### C BC #### [facility] [address] [place] [address] Dr. Rc Foster MCHC (RBC) [Mass/Vol] 32.5 g/dL Normal 29.9-35.2 [facility] Comment on above: Performed By: #### C BC #### [facility] [address] [place] [address] Dr. Rc Foster MCV (RBC) [Entitic vol] 88.6 fL Normal 81.0-99.0 [facility] Comment on above: Performed By: #### C BC #### [facility] [address] [place] [address] Dr. Rc Foster MONO # 0.4 103/ul Normal 0.3-0.8 [facility] Comment on above: Performed By: #### C BC #### [facility] [address] [place] [address] Dr. Rc Foster Monocytes/100 WBC (Bld) 7.6 % Normal 1.7-12.0 [facility] Comment on above: Performed By: #### C BC #### [facility] [address] [place] [address] Dr. Rc Foster NEUT # 2.3 103/ul Normal 1.4-6.5 [facility] Comment on above: Performed By: #### C BC #### [facility] [address] [place] [address] Dr. Rc Foster Neutrophils/100 WBC (Bld) 40.6 % Critically low 43.0-75.0 [facility] Comment on above: Performed By: #### C BC #### [facility] [address] [address] [address] Rc Foster Platelet mean volume (Bld) [Entitic vol] 9.6 fL Normal 9.5-13.5 [facility] Comment on above: Performed By: #### C BC #### [facility] [address] [place] [address] Dr. Rc Foster PLT 194 103/ul Normal 150-450 [facility] Comment on above: Performed By: #### C BC #### [facility] [address] [address] [address] Rc Foster RBC 4.65 106/ul Normal 4.20-5.40 [facility] Comment on above: Performed By: #### C BC #### [facility] [address] [place] [address] Dr. Rc Foster WBC 5.5 103/ul Normal 4.0-11.0 [facility] Comment on above: Performed By: #### C BC #### [facility] [address] [place] [address] Dr. Rc Foster GLYCOHEMOGLOBIN A1Con 2021 ADA RECOMMENDATION SEE BELOW Normal [facility] Comment on above: Result Comment: ADA RECOMMENDED LIMIT 4.0 - 6.0 ADA THERAPEUTIC TARGET < 7.0 ACTION SUGGESTED > 7.0 Performed By: #### A 1C #### [facility] [address] [place] [address] Dr. Rc Foster Glucose [Mass/Vol] 131 mg/dL Normal [facility] Comment on above: Performed By: #### A 1C #### [facility] [address] [place] [address] Dr. Rc Foster HbA1c (Bld) [Mass fraction] 6.2 % Normal 4.5-6.2 [facility] Comment on above: Performed By: #### A 1C #### [facility] [address] [place] [address] Dr. Rc Foster PROF CHEM 8 (BAS METB)on Anion gap [Moles/Vol] 15.2 mmol/L Normal [facility] Comment on above: Performed By: #### T SH, BMP #### [facility] [address] [place] [address] Dr. Rc Foster Calcium [Mass/Vol] 8.5 mg/dL Normal 8.5-10.1 [facility] Comment on above: Performed By: #### T SH, BMP #### [facility] [address] [place] [address] Dr. Rc Foster Chloride [Moles/Vol] 100 mmol/L Normal 98-107 [facility] Comment on above: Performed By: #### T SH, BMP #### [facility] [address] [place] [address] Dr. Rc Foster CO2 [Moles/Vol] 26.6 mmol/L Normal 21.0-32.0 [facility] Comment on above: Performed By: #### T SH, BMP #### [facility] [address] [place] [address] Dr. Rc Foster Creatinine [Mass/Vol] 1.15 mg/dL Critically high 0.55-1.02 [facility] Comment on above: Performed By: #### T SH, BMP #### [facility] [address] [place] [address] Dr. Rc Foster EGFR-AF [place] 58 mL/min/1.73m2 Critically low >=60 [facility] Comment on above: Performed By: #### T SH, BMP #### [facility] [address] [place] [address] Dr. Rc Foster EGFR-NON AF [place] 48 mL/min/1.73m2 Critically low >=60 [facility] Comment on above: Performed By: #### T SH, BMP #### [facility] [address] [place] [address] Dr. Rc Foster Glucose [Mass/Vol] 211 mg/dL Critically high 74-106 [facility] Comment on above: Performed By: #### T SH, BMP #### [facility] [address] [place] [address] Dr. Rc Foster Potassium [Moles/Vol] 4.8 mmol/L Normal 3.5-5.1 [facility] Comment on above: Performed By: #### T SH, BMP #### [facility] [address] [place] [address] Dr. Rc Foster Sodium [Moles/Vol] 137 mmol/L Normal 136-145 [facility] Comment on above: Performed By: #### T SH, BMP #### [facility] [address] [place] [address] Dr. Rc Foster Urea nitrogen [Mass/Vol] 33.0 mg/dL Critically high 7.0-18.0 [facility] Comment on above: Performed By: #### T MARY JANE, BMP #### [facility] [address] [place] [address] Dr. Rc Foster Urea nitrogen/Creatinine [Mass ratio] 28.7 mg/mg Normal [facility] Comment on above: Performed By: #### T MARY JANE, BMP #### [facility] [address] [place] [address] Dr. Rc Foster TSHon 11-27-2021 TSH 0.744 uIU/mL Normal 0.358-3.740 [facility] Comment on above: Performed By: #### T MARY JANE, BMP #### [facility] [address] [place] [address] Dr. Rc Foster SYMPTOMATIC COVID-19 ANTIGEN on 10-28-2021 EUA Statement SEE BELOW Normal [facility] Comment on above: Result Comment: This [...] revoked sooner. Performed By: #### C VDAGS ####[facility] [id number] [place], [place] [address]EiDr. Rc Foster SARS-CoV-2 (COVID-19) RNA YARED+probe Ql (Unsp spec) Negative Normal NEGATIVE [facility] Comment on above: Performed By: #### C VDAGS ####[facility] [address] [place], [place] [address]GlDr. Rc Foster GLYCOHEMOGLOBIN A1Con 2021 ADA RECOMMENDATION SEE BELOW Normal [facility] Comment on above: Result Comment: ADA RECOMMENDED LIMIT 4.0 - 6.0 ADA THERAPEUTIC TARGET < 7.0 ACTION SUGGESTED > 7.0 Performed By: #### A 1C #### [facility] [address] [address] [address] Rc Foster Glucose [Mass/Vol] 128 mg/dL Normal [facility] Comment on above: Performed By: #### A 1C #### [facility] [address] [address] [address] Rc Foster HbA1c (Bld) [Mass fraction] 6.1 % Normal 4.5-6.2 [facility] Comment on above: Performed By: #### A 1C #### [facility] [address] [address] [address] Rc Foster Discharge CCD Assessmenton 0 09-06-2020 Discharge CCD Assessment [facility] Patient: CARROLL HARDEN [address] [place] [address] MR#: [id number] DISCHARGE CCD ASSESSMENT : 58 Service Date: 09/06/20 1018 Discharge CCD Assessment Assessment Patient discharged home to continue exercises, pain medication, and wound care Electronically Signed eSign Date and Time Melyssa Flores 09/06/20 1019 Tera Hernandez MD Normal [facility] GLUCOSE METERon 09-06-2020 Glucose [Mass/Vol] 126 mg/dL High 70-99 [facility] Comment on above: Order Comment: CONSE RVATION Result Comment: Fast ing GLUCOSE reference range has been updated per (ADA) [place] [employer] Association's recommendation. 07/18/2018 Performed By: #### L 500.87143 ####Test performed at: [place] [address] Glucose [Mass/Vol] 205 mg/dL High 70-99 [facility] Comment on above: Order Comment: CONSE RVATION Result Comment: Fast ing GLUCOSE reference range has been updated per (ADA) [place] Diabetes Association's recommendation. 07/18/2018 Insulin per sl scale Performed By: #### L 500.80556 #### Test performed at: [place] [address] Internal Med Progress Noteon 09-06-2020 Internal Med Progress Note [facility] Patient: CARROLL HARDEN [address] [place] [address] MR#: [id number] PROGRESS NOTE - Internal Medicine : 58 [...] Katarzy na MD 09/06/20 1134 Normal [facility] Orthopedic Progress Noteon 0 09-06-2020 Orthopedic Progress Note [facility] Patient: CARROLL HARDEN [address] [place] [address] MR#: [id number] PROGRESS NOTE - Orthopedic : 58 Service [...] 09/06/20 1022 Tera Hernandez MD Normal [facility] Anesthesia Noteon 09-05-2020 Anesthesia Note [facility] Patient: CARROLL HARDEN [address] [place] [address] MR#: [id number] ANESTHESIA NOTE : Service Date: 09/05/20811 Post-anesthesia [...] Signed eSign Date and Time Krystian Akers CARE PROGRAM RESIDENT-GOLD NIB GRINDER 09/05/20 0813 Chu Glez MD Normal [facility] BASIC MET PANELon 09-05-2020 Anion gap [Moles/Vol] 12 mmol/L Normal 6-18 [facility] Comment on above: Performed By: #### L 500.27207, L500.59989 #### Test performed at: [address] [address] Calcium [Mass/Vol] 8.7 mg/dL Normal 8.5-10.1 [facility] Comment on above: Performed By: #### L 500.49173, L500.77841 #### Test performed at: [address] [address] Chloride [Moles/Vol] 101 mmol/L Normal 98-107 [facility] Comment on above: Performed By: #### L 500.89602, L500.50880 #### Test performed at: [address] [address] CO2 [Moles/Vol] 25 mmol/L Normal 21-32 [facility] Comment on above: Performed By: #### L 500.42679, L500.65648 #### Test performed at: [address] [address] Creatinine [Mass/Vol] 1.020 mg/dL Normal 0.550-1.020 [facility] Comment on above: Performed By: #### L 500.25881, L500.30671 #### Test performed at: [address] [address] Glucose [Mass/Vol] 264 mg/dL High 70-99 [facility] Comment on above: Result Comment: Fast ing GLUCOSE reference range has been updated per (ADA) [place] Diabetes Association's recommendation. 07/18/2018 Performed By: #### L 500.13939, L500.96315 #### Test performed at: [address] [address] OSM 289 mosm/kg Normal 270-300 [facility] Comment on above: Performed By: #### L 500.77162, L500.75920 #### Test performed at: [address] [address] Potassium [Moles/Vol] 4.5 mmol/L Normal 3.5-5.1 [facility] Comment on above: Performed By: #### L 500.21286, L500.94753 #### Test performed at: [address] [address] Sodium [Moles/Vol] 134 mmol/L Low 136-145 [facility] Comment on above: Performed By: #### L 500.83924, L500.90176 #### Test performed at: [address] [address] Urea nitrogen [Mass/Vol] 17 mg/dL Normal 7-18 [facility] Comment on above: Performed By: #### L 500.85904, L500.62730 #### Test performed at: [address] [address] GFR ESTIMATEon 09-05-2020 IF AMER > 60 Normal > 60 [facility] Comment on above: Result Comment: eGFR (Estimated GFR) Units of measure:mL/min/1.73 meters sq. *CALCULATION REVISED 02/11/2015;IDMS-traceable MDRD equation eGFR is derived from the reexpressed MDRD Study equation using the following parameters: serum creatinine, age, gender and race. An eGFR<60 mL/min/1.73m2 for >3 months is consistent with chronic kidney disease. Refer to KDOQI guidelines for clinical interpretation. Performed By: #### L 500.51737, L500.94309 #### Test performed at: [place] [address] [place] [address] IF non-AFR AMER 55 Low > 60 [facility] Comment on above: Performed By: #### L 500.47289, L500.09112 #### Test performed at: [address] [address] GLUCOSE METERon 09-05-2020 Glucose [Mass/Vol] 177 mg/dL High 70-99 [facility] Comment on above: Order Comment: CONSE RVATION Result Comment: Fast ing GLUCOSE reference range has been updated per (ADA) [place] Diabetes Association's recommendation. 07/18/2018 Performed By: #### L 500.57552 #### Test performed at: [address] [address] Glucose [Mass/Vol] 310 mg/dL High 70-99 [facility] Comment on above: Result Comment: Fast ing GLUCOSE reference range has been updated per (ADA) [place] Diabetes Association's recommendation. 07/18/2018 Insulin per sl scale Performed By: #### L 500.62432 ####Test performed at: [address] [address] Glucose [Mass/Vol] 281 mg/dL High 70-99 [facility] Comment on above: Result Comment: Fast ing GLUCOSE reference range has been updated per (ADA) [place] Diabetes Association's recommendation. 07/18/2018 Insulin per sl scale Performed By: #### L 500.30928 #### Test performed at: [address] [address] Glucose [Mass/Vol] 105 mg/dL High 70-99 [facility] Comment on above: Result Comment: Fast ing GLUCOSE reference range has been updated per (ADA) [place] Diabetes Association's recommendation. 07/18/2018 Performed By: #### L 500.21795 #### Test performed at: [place] [address] HGB AND HCTon 09-05-2020 Hematocrit (Bld) [Volume fraction] 37.5 % Normal 36.0-48.0 [facility] Comment on above: Performed By: #### L 200.75113 #### Test performed at: [place] [address] Hemoglobin (Bld) [Mass/Vol] 12.5 g/dL Normal 12.0-15.0 [facility] Comment on above: Performed By: #### L 200.84772 #### Test performed at: [place] [address] Internal Med Progress Noteon 09-05-2020 Internal Med Progress Note [facility] Patient: CARROLL HARDEN [address] [place] [address] MR#: [id number] PROGRESS NOTE - Internal Medicine : 58 [...] Disc (more content not included)... Normal [facility] OT Therapy Recommendationson 09-05-2020 OT Therapy Recommendations [facility] Patient: CARROLL HAREDN [address] [place] [address] MR#: [id number] OT THERAPY RECOMMENDATIONS : 58 Service Date: 09/05/20 1511 Therapy Recommendations Therapy Recommendations Recommendations OT evaluation completed. OT recommends HOME with FAmily assist. No further acute OT needs are indicated at this time. Electronically Signed eSign Date and Time Trupti Rojas OT 09/05/20 1512 Normal [facility] Orthopedic Progress Noteon 0 09-05-2020 Orthopedic Progress Note [facility] Patient: CARROLL HARDEN [address] [place] [address] MR#: [id number] PROGRESS NOTE - Orthopedic : 58 Service [...] KHAN 09/05/20 1429 Tera Hernandez MD Normal [facility] PT Therapy Recommendationson 09-05-2020 PT Therapy Recommendations [facility] Patient: CARROLL HARDEN [address] [place], [place] [address] MR#: [id number] PT THERAPY RECOMMENDATIONS : 58 Service Date: 09/05/20 0914 Therapy Recommendations Therapy Recommendations Recommendations PT eval complete. No further acute PT needs. Recommend d/c home /c family assist. Electronically Signed eSign Date and Time Tiffanie Bashir PT 09/05/20 0914 Normal [facility] z OT Inpatient Discharge Not juan 09-05-2020 z OT Inpatient Discharge Note [facility] Patient: CARROLL HARDEN [address] [place], [place] [address] MR#: [id number] OT INPATIENT DISCHARGE NOTE : 58 Service [...] Trupti Rojas OT 09/05/20 1534 Normal [facility] z OT Inpatient Evaluationon 09-05-2020 z OT Inpatient Evaluation [facility] Patient: CARROLL HARDEN [address] [place], [place] [address] MR#: [id number] OT INPATIENT EVALUATION : 58 Inpatient OT HPI Date of Service 09/05/20 Time In: 1401 Time Out: 1412 Total Treatment Time (Mins) 11 Visit Reason LATERAL RECESS STENOSIS W/ RADICULOPATHY Surgery Type/Date s/p L L4-5 LAmi, foraminotomy, decompression on 09.04.20/ Lumbar spine precautions Referral Date 09/04/20 Tx Diagnosis: LOW BACK PAIN Insurance Name [employer] PPO POS HMO Hospital Course Pt is [...] 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 Objective Precautions Lumbar [...] Nader (more content not included)... Normal [facility] z PT Inpatient Discharge Not juan 09-05-2020 z PT Inpatient Discharge Note [facility] Patient: CARROLL HARDEN [address] [place] [address] MR#: [id number] PT INPATIENT DISCHARGE NOTE : 58 Service [...] Tiffanie Bashir PT 09/05/20 1139 Normal [facility] z PT Inpatient Evaluationon 09-05-2020 z PT Inpatient Evaluation [facility] Patient: CARROLL HARDEN [address] [place] [id number] MR#: [id number] PT INPATIENT EVALUATION : 58 Service Date: 09/05/20 0928 Inpatient PT HPI Date of Service 09/05/20 Time In: 0845 Time Out: 0907 Total Treatment Time (Mins) 22 Room Number 624 Visit Reason LATERAL RECESS STENOSIS W/ RADICULOPATHY Surgery Type: L L4-5 lami, foraminotomy, decompression Surgery Date: 09/04/20 Referral Date 09/04/20 Tx Diagnosis: LOW BACK PAIN Insurance Name [facility] Hospital Course 60 y.o female at [facility] for above sx d/t lateral recess stenosis [...] posture. 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 Pt agreeable to use of her cane [...] Tiffanie Bashir PT 09/05/20 1502 Normal [facility] GLUCOSE METERon 09-04-2020 Glucose [Mass/Vol] 94 mg/dL Normal 70-[facility] Comment on above: Result Comment: Fast ing GLUCOSE reference range has been updated per (ADA) [place] [employer]'s recommendation. 07/18/2018 Performed By: #### L 500.66693 ####Test performed at: [place] [address] Internal Medicine Consultati onon 09-04-2020 Internal Medicine Consultation [facility] Patient: CARROLL HARDEN [address] [place] [address] MR#: [id number] CONSULTATION - Internal Medicine : 58 Service Date: 09/04/20 1548 History of Present Illness Referring Physician Tera [...] 0 (Reported) Entered as Reported by JORDON MAHTUR on 12/11/1821 Last Action: Reviewed on 09/04/201054 [...] 0 (Reported) Entered as Reported by JORDON MAHTUR on 12/11/18 0916 Last Action: Reviewed on [...] Systems (more content not included)... Normal [facility] OPERATIVE REPORTon 1 OPERATIVE REPORT NAME: CARROLL HARDEN MR#: [id number] SURGEON: Tera Hernandez MD DATE OF SURGERY: [...] there were no complications. TERA HERNANDEZ MD [facility] PT NAME: CARROLL HARDEN MR#: [id number] [address] [place] [address] ACCT: [id number] : 58 OPERATIVE REPORT JFS/MODL/[id number] E/S: Tera Hernandez MD 09/18/20 1207 Electronically Signed [facility] PT NAME: CARROLL HARDEN MR#: [id number] [address] [place] [address] ACCT: [id number] : 58 OPERATIVE REPORT Normal [facility] Primary Residenton Primary Resident [facility] Pt Name: CARROLL HARDEN MR#: [id number] [address] [place] [address] ACCT: [id number] [place] [address] : 58 Service Date: 09/04/20 1603 Primary Resident/Call Primary Resident: [id number] [address] After Hours Call: [phone] Red Team Electronically Signed eSign Date and Time Ana Flanagan RES 09/16/20 1521 Normal [facility] LUMBAR SPINE 2 OR 3 VIEWSon 09-03-2020 LUMBAR SPINE 2 OR 3 VIEWS STUDY: LUMBAR SPINE 2 OR 3 VIEWS; 09/04/2020 2:57 pm INDICATION: LEFT L4-L5 LAMINECTOMY,FORAMINOT JOSE ANGEL,DECOMPRESSION. COMPARISON: None. ACCESSION NUMBER(S): [id number] ORDERING CLINICIAN: Tera Hernandez FINDINGS: Intraoperative fluoroscopy of the lumbar spine demonstrates surgical instruments posterior to L5. IMPRESSION: As above Normal [facility] CHEST PA/AP & LATERALon CHEST PA/AP & LATERAL STUDY: CHEST PA/AP LATERAL; 08/25/2020 11:00 am INDICATION: SOB/PAT. COMPARISON: None. ACCESSION NUMBER(S): [id number] ORDERING CLINICIAN: Madelyn Leslie FINDINGS: The lungs are clear without pleural effusion. Normal heart size, mediastinum, elzbieta, and pulmonary vasculature. IMPRESSION: No active disease in the chest. Normal [facility] CONSULTATION REPORTon 2020 CONSULTATION REPORT NAME: CARROLL HARDEN MR#: [id number] MEDICAL I D SALES: Madelyn Leslie MD DATE OF CONSULTATION: 08/25/2020 [...] pulse ox is 98% on room air. [facility] PT NAME: CARROLL HARDEN MR#: [id number] [address] [place], [place] [address] ACCT: [id number] : 58 CONSULTATION HEENT: Atraumatic head. Pupils [...] we are getting the results from her promotion manager in [place]. IMPRESSION: 1. Preop clearance for L4-L5 disk [...] courtesy of this consultation. MADELYN LESLIE MD MS/MODL/[id number] E/S: Madelyn Leslie MD 08/26/20 9729 Electronically Signed [facility] PT NAME: CARROLL HARDEN MR#: [id number] [address] [place], [place] [address] ACCT: [id number] : 58 CONSULTATION Normal [facility] LUMB SP COMP W FLEX/EXT 6 VW S>on 08-08-2020 LUMB SP COMP W FLEX/EXT 6 VWS> STUDY: LUMB SP COMP W FLEX/EXT 6 VWS>; 08/08/2020 9:43 am INDICATION: BACK PAIN. COMPARISON: No available comparisons. ACCESSION NUMBER(S): [id number] ORDERING CLINICIAN: Tera Hernandez TECHNIQUE: 6 views [...] level. No evidence of instability.. Normal [facility] XR SHLDR >/=3V AP/RUSH AP/OTH R RTon [...] Jul 03 2018 10:17AM EST [id number] [facility] ANES [place] 06-20-2018 ANES POST HNO ID: [id number] Author: Rohit Velarde Service: Anesthesiology Author Type: [...] 20, 2018 TIME: 2:38 PM PAGER/CONTACT #: [facility] ANES PREOPon 06-20-2018 ANES PREOP HNO ID: [id number] Author: Rohit Velarde Service: Anesthesiology Author Type: [...] 0.1-0.2 mL INTRADERMAL PRN Isreal R (Santos) [place] lactated ringers infusion 5-30 mL/hr INTRAVENOUS CONTINUOUS Isreal R (Santos) [place] ceFAZolin iv piggyback 2 g in D5W [...] June 20, 2018 TIME: 9:35 AM CSN: [id number] [facility] BRIEF OP NOTon 06-20-2018 BRIEF OP NOT HNO ID: [id number] Author: Kusum Francisco Service: Orthopaedic Surgery Author Type: Resident Type: Brief Op Note Filed: 06/20/2018 5:49 PM Note Text: BRIEF OP NOTE LOG ID: [id number] Surgery/Procedure Date: 06/20/2018 Incision/Procedure Start Time: 11:18 AM Incision Close/Procedure End Time: 1:17 PM Surgeon(s)/Procedural ist(s) and Visitor Services Representative(s): Surgeon(s) and Role: * Jenna Lentz - [...] 20, 2018 TIME: 5:49 PM PAGER/CONTACT #: [facility] CASE MANAGEMon 06-20-2018 CASE MANAGEM HNO ID: [id number] Author: May Herrera (Sw) Service: Care Management Author Type: Adjunct Psychology Faculty Member Type: Care Mgt Progress Note Filed: 06/20/2018 [...] is pcp summary of care sent via [employer] () Nurse to provide discharge instructions. TRANSPORTATION ARRANGEMENTS: Car Spouse ADDITIONAL CONTACT RESOURCES: Needs Prior to Discharge: Ready for Discharge Appointments for Next 45 Days Date Time Provider Location Dept Phone 07/03/2018 10:00 AM CAROLA BAPTISTE AT [phone] 07/03/2018 10:30 AM GABRIEL CANTU) [facility] AT [phone] 07/31/2018 2:15 PM JENNA LENTZ AT [phone] Pt to be discharged home to follow up as above. SIGNATURE: DARIO Saini PATIENT NAME: Carroll Harden DATE: June 20, 2018 TIME: 5:31 PM PAGER/CONTACT #: [phone] [facility] CASE MGT INIT ASSESon 2018 CASE MGT INIT ASSES HNO ID: [id number] Author: May Herrera (Sw) Service: Care Management Author Type: Adjunct Psychology Faculty Member Type: Care Mgt Initial Assessment Filed: 06/20/2018 [...] None Has the Patient Been in a Fci Facility in the Past 30 days? 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 O.Therapy recommend home. Spouse visiting at bedside and will transport pt home later today.Further discharge needs not anticipated.SW/TCC to follow to assist with plans for discharge. SIGNATURE: DARIO Saini PATIENT NAME: Carroll Harden DATE: June 20, 2018 TIME: 5:27 PM PAGER/CONTACT #: [phone] [facility] CONSULTon 06-20-2018 CONSULT HNO ID: [id number] Author: Dulce Green Service: General Internal Medicine [...] Disp: Rfl: 06/19/2018 at 0630 rizatriptan (MAXALT REPRODUCTION TECHNICIAN) 10 mg disintegrating tablet DISSOLVE 1 TABLET [...] the care of your patient. Dulce Green, CARE PROGRAM RESIDENT.MACHINE VENEER REPAIRER June 20, 2018 4:34 PM Normal [facility] NURSING PROGon 06-20-2018 Protein mass conc HNO ID: [id number] Author: Fela (Rn) FLETCHER Phillips Service: (none) Author Type: Registered Nurse Type: Nursing Progress Note Filed: 06/20/2018 7:39 PM Note Text: Nursing Progress Note Patient Name: Carroll Harden Patient Location: [place] [address] Daily Note: 1545. Care assumed. Pt [...] at bedside. 1720. Dr. Blake and Dulce PRINTER SLOTTER OPERATOR at bedside, plan is to stay [...] note was completed by: Fela Phillips RN [facility] Protein mass conc HNO ID: [id number] Author: Wendy ValenciaRn) FLETCHER Underwood Service: Nursing Author Type: Registered Nurse Type: Nursing Progress Note Filed: 06/20/2018 10:20 AM Note Text: Nursing Progress Note Patient Name: Carroll Harden Patient Location: SURGERY [facility] S* Daily Note:Right interscalene nerve block with ultrasound guidance with Dr. Velarde and Dr. Marlow at bedside. Patient tolerated procedure well, VSS, will continue to monitor as we wait for OR team. Resting comfortably with no complaints of pain at this time. This note was completed by: Wendy Underwood RN [facility] OPERATIVE NOon 06-20-2018 OPERATIVE NO HNO ID: [id number] Author: Jenna Lentz Service: Orthopaedic Surgery Author Type: Physician Type: Operative Report Filed: 06/20/2018 1:25 PM Note Text: [place] [id number] [place] OPERATIVE REPORT NAME: Carroll Harden [facility] #: [id number] DATE: 06/20/2018 (11:18am-1:17pm) AGE: 58 SURGEON 1: Jenna Lentz M.D. BREAKER MACHINE TENDER: 1. Augie Coates M.D. 2. Kusum Prasad M.D. 3. Mundo Pablo OPERATION: Right total shoulder arthroplasty, biceps tenodesis. ANESTHESIA: General anesthesia with regional interscalene nerve block for postoperative pain control. PREOPERATIVE DIAGNOSIS: Right shoulder primary glenohumeral osteoarthritis. POSTOPERATIVE DIAGNOSIS: Right shoulder primary glenohumeral osteoarthritis, biceps tendinopathy. OPERATIVE INDICATIONS: The patient is a 58 year olddim-kenz-knd right-hand dominant white female who has a [...] rotator interval stitch was then passed in fqnxnu-le-txenf fashion with a #2 Ticron suture and tied down to close the lateral rotator interval and set the osteotomy superiorly. The two #2 Fiberwire sutures coming out of the bicipital groove were then sequentially passed in a xnerwb-nl-xeaex fashion medial to the horizontal mattress and [...] none COMPLICATIONS: none apparent Jenna Lentz M.D. [facility] PT EDon 06-20-2018 PT ED HNO ID: [id number] Author: Cindy ValenciaRn) FLETCHER Griffin Service: (none) [...] Signed By: Cindy Griffin RN In Department: [facility] SURGICAL SERVICES [facility] THERAPY NTon 06-20-2018 THERAPY NT HNO ID: [id number] Author: Abi ValenciaOtTyesha Phillips Service: Occupational Therapy Author Type: Occupational Therapist Type: Therapy (PT/OT/Speech/Resp) Filed: 06/20/2018 4:59 PM Note Text: Occupational Therapy Evaluation SERVICE DATE: 06/20/2018 SERVICE TIME: 1550 to 1640 ROOM: [address] Recommended Discharge Disposition: Home Anticipated Discharge [...] living (ADL) Interventions Provided: Evaluation;Therapeuti c Exercise (72270);Self Mcfp Management (00143) $ Evaluation-Low (18223) Billed Units: 1 unit Therapeutic Exercise (79699) Treatment Minutes: 10 1 unit Skilled Intervention(s): Education in Self Mcfp Management (16960) Treatment Minutes: 28 2 units Skilled Intervention(s): [...] Environment Patient Lives With: Spouse Assistance Available: maritime engineer Number Of Stairs To Bed/Bath: 0 Equipment [...] DATE: June 20, 2018 TIME: 4:54 PM [facility] XR SHOULDER 2V AP/TRUE AP [...] 20 2018 2:04PM EST [id number] Normal [facility] NURSING PROGon 06-09-2018 Protein mass conc HNO ID: [id number] Author: Ivana (Rn) FLETCHER Heller Service: Nursing [...] RN June 15, 2018 4:39 PM Normal [facility] Type and SCR (30D)on 019 ABO/RH(D) Positive Normal [facility] HOSPon 04-28-2018 HOSP Patient:Adalberto Harden MRN: Height:5' 2 (1.575 m) Weight:186 lb (84.369 kg) Outpatient Medications as of 06/20/18: calcium phosphate dibas/vit D3 (VITAMIN D, WITH CALCIUM, ORAL) docusate sodium (COLACE) 100 mg capsule aspirin, enteric coated (ECOTRIN LOW STRENGTH) 81 mg EC tablet oxyCODONE-acetaminoph en (PERCOCET) 5-325 mg tablet rizatriptan (MAXALT REPRODUCTION TECHNICIAN) 10 mg disintegrating tablet mupirocin (BACTROBAN) 2 [...] 36.0 Progress Notes (RADIO CT SCAN [facility]): RT Lillian, Tech 06/07/2018 10:04 [...] RT Lillian June 07, 2018 9:54 AM [facility] Vital Signs Date Time Vital Sign Value Performing Clinician Facility 04-29-2023 09:00-0500 Body height 154.94 cm Robert Cruz Other [facility] Other 04-29-2023 09:00-0500 Body mass index (BMI) [Ratio] 33.14 kg/m2 Robert Wolonge Other [facility] Other 04-29-2023 09:00-0500 Body weight 79.56 kg Robert Wolonge Other [facility] Other 04-29-2023 09:00-0500 Diastolic blood pressure 89 mm[Hg] Robert Wolonge Other [facility] Other 04-29-2023 09:00-0500 Respiratory rate 12 /min Robert Ball Other [facility] Other 04-29-2023 09:00-0500 Systolic blood pressure 155 mm[Hg] Robert Ball Other [facility] Other 12-20-2022 13:45-0400 Body height 154.94 cm Robert Ball Other [facility] Other 12-20-2022 13:45-0400 Body mass index (BMI) [Ratio] 34.12 kg/m2 Robert Ball Other [facility] Other 12-20-2022 13:45-0400 Body weight 81.92 kg Robert Ball Other [facility] Other 12-20-2022 13:45-0400 Diastolic blood pressure 96 mm[Hg] Robert Ball Other [facility] Other 12-20-2022 13:45-0400 Respiratory rate 12 /min Robert Ball Other [facility] Other 12-20-2022 13:45-0400 Systolic blood pressure 179 mm[Hg] Robert Ball Other [facility] Other 08-04-2022 09:45-0400 Body height 154.94 cm Robert Ball Other [facility] Other 08-04-2022 09:45-0400 Body mass index (BMI) [Ratio] 33.33 kg/m2 Robert Ball Other [facility] Other 08-04-2022 09:45-0400 Body weight 80.02 kg Robert Ball Other [facility] Other 08-04-2022 09:45-0400 Diastolic blood pressure 77 mm[Hg] Robert Cruz Other [facility] Other 08-04-2022 09:45-0400 Respiratory rate 12 /min Robert Ball Other [facility] Other 08-04-2022 09:45-0400 Systolic blood pressure 128 mm[Hg] Robert Cruz Other [facility] Other Encounters Encounter Date Encounter Type Care Provider Facility Start: 06-06-2023 End: 06-07-2023 ambulatory Miriam Barron MD Facility:[facility] Start: 06-01-2023 End: 06-01-2023 ambulatory Robert Cruz Other [facility] Other Start: 06-01-2023 Telephone encounter Robert Ball [facility] Start: 05-23-2023 End: 05-24-2023 ambulatory Miriam Barron MD Facility:[facility] Start: 05-13-2023 End: 05-13-2023 ambulatory Robert Cruz Other [facility] Other Start: 05-13-2023 Telephone encounter Robert Ball [facility] Start: 05-09-2023 End: 05-09-2023 ambulatory Robert Ball Other [facility] Other Start: 05-09-2023 Telephone encounter Robert Ball [facility] Start: 05-04-2023 End: 05-04-2023 ambulatory Robert Ball Other [facility] Other Start: 05-04-2023 Telephone encounter Robert Ball [facility] Start: 05-02-2023 End: 05-02-2023 ambulatory Robert Ball Other [facility] Other Start: 05-02-2023 Telephone encounter Robert Ball [facility] Start: 04-29-2023 End: 04-29-2023 ambulatory Robert Ball Other [facility] Other Start: 04-29-2023 Office outpatient vi sit 15 minutes Robert Ball [facility] Start: 04-04-2023 End: 04-04-2023 ambulatory Robert Ball Other [facility] Other Start: 04-04-2023 Telephone encounter Robert Ball [facility] Start: 01-24-2023 End: 01-24-2023 ambulatory Robert Ball Other [facility] Other Start: 01-24-2023 Telephone encounter Robert Ball [facility] Start: 12-23-2022 End: 12-23-2022 ambulatory Robert Ball Other [facility] Other Start: 12-23-2022 Telephone encounter Robert Ball [facility] Start: 12-20-2022 End: 12-20-2022 ambulatory Robert Ball Other [facility] Other Start: 12-20-2022 Office outpatient vi sit 15 minutes Robert Cruz [facility] Start: 12-17-2022 End: 12-17-2022 ambulatory Robert Ball Other [facility] Other Start: 12-17-2022 Telephone encounter Robert Ball [facility] Start: 11-08-2022 End: 11-08-2022 ambulatory Robert Ball Other [facility] Other Start: 11-08-2022 Telephone encounter Robert Ball [facility] Start: 10-22-2022 End: 10-22-2022 ambulatory Robert Ball Other [facility] Other Start: 10-22-2022 Telephone encounter Robert Ball [facility] Start: 10-13-2022 End: 10-13-2022 ambulatory Robert Cruz Other [facility] Other Start: 10-13-2022 Telephone encounter Robert Cruz [facility] Start: 09-27-2022 End: 09-27-2022 ambulatory Robert Cruz Other [facility] Other Start: 09-27-2022 Telephone encounter Robert [facility] Start: 08-23-2022 End: 08-24-[address] RISHI PARKER Facility:[facility] Start: 08-04-2022 End: 08-04-2022 ambulatory Robert Cruz Other [facility] Other Start: 08-04-2022 Office outpatient vi sit 25 minutes Robert Cruz [facility] Start: 04-03-2022 Encounter for genera l adult medical examination without abnormal findings DR ROBERT CRUZ [facility] Start: 03-30-2022 End: 03-31-[address] ROBERT [...] Start: 07-03-2018 End: 07-03-2018 Patient encounter procedure [facility] Start: 06-20-2018 End: 06-20-2018 Evaluation and management of inpatient [facility] Procedures Date Procedure Procedure Detail Performing Clinician Start: 06-07-2018 Antibody screen [facility] Payers Date Payer Category Payer Unknown 2022 [place] [id number] 2019 Unknown [id number] 1960 Self-pay [id number] 1959 Unknown [id number] 2.16.84 [id number] 1959 Unknown [id number] 2.16.84 [id number] 1959 Unknown [id number] 2.16.84 [id number] 1959 Unknown [id number] 2.16.84 [id number] 1959 Unknown [id number] 2.16.84 [id number] 1959 Unknown [id number] 2.16.84 [id number] 1959 Unknown [id number] 2.16. [id number] 1959 Unknown [id number] 2.16. [id number] Unknown [id number] 2.16.84 [id number] Social History Date Type Detail Facility Sex Assigned At [facility] Other Clinical Notes 08-04-2022 to 06-01-2023 Note [...] and without status migrainosus (ICD-10 - G43.719) [facility] Other 01-15-2024 Evaluation note* Encounter Date Diagnosis Assessment Notes Treatment Notes Treatment Clinical Notes Apr, Intractable chronic migraine without aura and without status migrainosus (ICD-10 - G43.719) [facility] Other 01-08-2024 Evaluation note* Encounter Date Diagnosis Assessment Notes Treatment Notes Treatment Clinical Notes Apr, Intractable chronic migraine without aura and without status migrainosus (ICD-10 - G43.719) [facility] Other 01-05-2024 Evaluation note* Encounter Date Diagnosis [...] Begin Amitriptyline Stop Tizanidine. 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 May want to cut back on Zanaflex. [...] Pain in left shoulder (ICD-10 - M25.512) [facility] Other 06-30-2023 Evaluation note* Encounter Date Diagnosis Assessment Notes Treatment Notes Treatment Clinical Notes Sep, Type 2 diabetes mellitus with hyperglycemia, without long-term current use of insulin (ICD-10 - E11.65) [facility] Other 06-05-2023 Evaluation note* Encounter Date Diagnosis Assessment Notes Treatment Notes Treatment Clinical Notes Sep, Candidiasis, intertriginous (ICD-10 - B37.2) [facility] Other 04-12-2023 Evaluation note* Encounter Date Diagnosis [...] use, the patient reduces the risk for ME, CVA, HTN, cardiac dysrhythmias and sudden cardiac [...] Jul, Other specified hypothyroidism (ICD-10 - E03.8) [facility] Other Evaluation noteNo [email or web address] Other History general Narrative - Reported* Type [...] CATHETERIZATION 2016 Hospitalization History SEE SURIGCAL HX [facility] Other History general Narrative - Reported* Type [...] arthroscopy 10/2022 Hospitalization History SEE SURIGCAL HX [facility] Other Reason for referral (narrative)* Reason Evaluation of right knee pain Diagnosis 1 Strain of right knee , subsequent encounter (Z38.857J) Referral Organization [facility] bhupinder Referring Provider First Name Robert Referring Provider Last Name [place] Referring Provider Specialty Internal Wy yoni Referred Provider Rishi Parker Jr Referred Provider Specialty Orthopedic S urgery Referral Priority Routine [facility] Other Reason for referral (narrative)* Reason Referral for neck pa in Diagnosis 1 Cervicalgia (M54.2) Diagnosis 2 Cervical spondylosis (M47.812) Referral Organization [facility] bhupinder Referring Provider First Name Robert Referring Provider Last Name Hamilton Referring Provider Specialty Internal Wy dicine Referred Organization [facility] Referred Address [address] [place], [place],[address] Referred Provider Specialty Pain Medicin e Referral Priority Routine General Notes Patient has hx of ce rvical discectomy and fusion and presented w/ persistent neck pain, which radiated upwards causing a headache. She is being referred for treatment with the pain clinic. Clinical Notes Include MRI [facility] Other Summary Purpose Family History No Family History Records FoundNo Family History Records FoundNo Family History Records FoundNo Family History Records FoundNo Family History Records Found Advance Directives No Advanced Directives Records FoundNo Advanced Directives Records FoundNo Advanced Directives Records FoundNo Advanced Directives Records FoundNo Advanced Directives Records Found Additional Source Comments INFORMATION SOURCE (unrecogn ized section and content) DATE CREATED AUTHOR 06/20/2018 [facility] DATE CREATED AUTHOR AUTHOR'S ORGANIZ ATION 07/04/2018 [facility] DATE CREATED AUTHOR AUTHOR'S ORGANIZ ATION 09/18/2020 [facility] DATE CREATED AUTHOR AUTHOR'S ORGANIZ ATION 08/27/2022 [facility] DATE CREATED AUTHOR AUTHOR'S ORGANIZ ATION 06/12/2023 [facility] REASON FOR VISIT (unrecogniz ed section [...] BE BASED ON THE PRIMARY CLINICAL RECORDS. [facility] [facility]. provides no warranty or guarantee of the accuracy or completeness of information in this document.
[2023-06-27 06:56] LABS: Glucometer 123 mg/dL (74-106)
[2023-06-27 07:03] VITALS: BP 104/68; PULSE 69; RESP 16; TEMP 36.4; O2SAT 99
[2023-06-27 07:42] VITALS: RESP 20
[2023-06-27 07:46] VITALS: BP 106/54; BP 110/54; PULSE 68; PULSE 70; O2SAT 97
[2023-06-27] MEDS: BUPIVACAINE HCL 0.5% PF 50 MG/10 ML VIAL 8 ML INJ (07:46)
[2023-06-27] MEDS: LIDOCAINE HCL 2% PF 100 MG/5 ML VIAL 2 ML INJ (07:50)
--- NOTE | 2023-06-27 07:55 | W.PM.PROCNOT ---
Date of procedure: 06/27/23 Pre-op diagnosis: Cervical spondylosis Post-op diagnosis: same as pre-op Procedure: Procedure: Bilateral C2-3, C3-4 medial branch block Medications: Bupivacaine 0.25% 6cc The patient was seen and examined in the preoperative holding area.? The informed consent was obtained and placed on the chart.? The patient was brought to the medical procedure unit and placed in the prone position.? A timeout was completed verifying correct patient, procedure site, positioning, plan, and special equipment.? Using aseptic technique, the needle was placed at left C2..? Under direct fluoroscopic visualization, a Quincke tip needle was advanced to the midpoint of the waist of the articular pillar at the respective medial branch segment. The above-mentioned injectate was placed in a 1 mL aliquot proceeded by negative aspiration.? The needle was removed.? The procedure was completed at all left C3, 4. The same procedure, at the same levels, was then completed on the right side. Insertion site was covered.? Patient was taken to the postprocedural recovery area and monitored for an appropriate length of time before found suitable for discharge in the accompaniment of a responsible adult. Anesthesia: Local Surgeon: Miriam Barron Pathology: none sent Condition: stable Disposition: no change
== END 2023-06-27 07:52 | disposition home or self-care (01) ==
PROVIDERS: PCP Internal Medicine; Visit Provider Anesthesiology
DX: M47.812 Spondylosis without myelopathy or radiculopathy, cervical region (principal); Z79.84 Long term (current) use of oral hypoglycemic drugs
CPT/HCPCS: 36415; 64490; 64491; 82948

== ENCOUNTER 2023-07-06 11:06 | Outpatient (OUT) | payer BC, SELFPAY ==
--- OUTSIDE RECORDS SUMMARY | 2023-07-06 11:20 | XMS_ITS | CCD ---
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 Name Role Phone JENNA LENTZ Admitting Unavailable [...] AYOUB Attending Unavailable WALTER, YESSENIA Consulting Unavailable YESSENIA WATSON Admitting Unavailable PRISCILLA ., DR MAZARIEGOS Attending Unavailable PRISCILLA ., DR MAZARIEGOS Consulting Unavailable PRISCILLA Soares, DR MAZARIEGOS Admitting Unavailable HAMILTON, DR NINO Primary Care Unavailable Anderson HENLEY, Miriam Stephenson Attending Unavailable Anderson HENLEY, Miriam Stephenson Attending Unavailable Anderson HENLEY, Miriam Stephenson Attending Unavailable Allergies Allergy Classification Reported Allergen(s) Allergy Type Date of Onset Reaction(s) Facility (2 sources) Contrast media; Translations: [CONTRAST DYE] Propensity to adverse reactions to drug (disorder) 09-30-19 11 [facility] Repository (2 sources) HYDROmorphone; Translations: [HYDROMORPHONE (BULK)] Drug Allergy 08-17-19 17 [facility] Repository (20 sources) Latex; Translations: [LATEX] Propensity to adverse reactions to drug (disorder) 09-30-19 11 Unknown [facility] Repository (2 sources) Meperidine; Translations: [MEPERIDINE (PF)] Drug Allergy 09-30-19 11 [facility] Repository (2 sources) Povidone-Iodine; Translations: [POVIDONE-IODINE] Drug Allergy 10-21-19 17 [facility] Repository (2 sources) SUMAtriptan; Translations: [SUMATRIPTAN SUCCINATE] Drug Allergy 09-30-19 11 [facility] Repository (2 sources) INFLUENZA VACCINE TRI-SP 09-10; Translations: [INFLUENZA VACCINE TRI-SP 09-10] Propensity to adverse reactions to drug (disorder) 09-30-19 11 [facility] Repository (3 sources) DHE; Translations: [DHE] Propensity to adverse reactions to drug (disorder) 10-24-19 13 [facility] Repository (17 sources) HYDROmorphone Drug Allergy Unknown [employer] Other (18 sources) Iodine; Translations: [iodine] Drug Allergy 10-24-19 13 Unknown [facility] Repository (17 sources) Meperidine Drug Allergy Unknown [employer] Other (17 sources) SUMAtriptan Drug Allergy Unknown [employer] Other (17 sources) Fluad Drug allergy Unknown [employer] Other (17 sources) DHEA Drug allergy Unknown [employer] Other (1 source) HYDROmorphone Drug Allergy 10-24-19 13 [facility] Repository (1 source) Meperidine Drug Allergy 10-24-19 13 [facility] Repository (1 source) Plasmin Drug Allergy 10-24-19 13 [facility] Repository (12 sources) influenza A virus (H1N1) antigen / influenza A virus (H3N2) antigen / influenza B virus antigen Drug Allergy 11-21-19 14 Comment:FLU VACCINE [employer] Other (12 sources) Contraindication to Flu Injection Propensity to adverse reactions 03-07-20 14 Comment:advers e rxn/side effects [employer] Other (3 sources) patient allergy list reviewed by nurse or physicia Propensity to adverse reactions 12-22-19 14 Comment:Done [employer] Other Medications Current Medications Medication Drug Class(es) [...] Start: 12-28-2022 take 3 tablets by mo ut once daily at bedtime clonazePAM 0.5 MG [...] every two hours as needed for headache Maxalt-SMELTER LINER 10 MG 1 tablet Orally PRN headache, [...] BERNY CANO Date: 2022-08-24 07:19 Normal [facility] CBC AUTO DIFFon 03-30-2022 BASO # 0.0 103/ul Normal 0.0-0.1 [facility] Comment on above: Performed By: #### C BC #### [facility] [address] [address] [address] Rc Foster Basophils/100 WBC (Bld) 0.4 % Normal 0.2-2.0 [facility] Comment on above: Performed By: #### C BC #### [facility] [address] [place] [address] Dr. Rc Foster EO # 0.3 103/ul Normal 0.0-0.7 [facility] Comment on above: Performed By: #### C BC #### [facility] [address] [place] [address] Dr. Rc Foster Eosinophils/100 WBC (Bld) 4.9 % Normal 0.9-7.0 [facility] Comment on above: Performed By: #### C BC #### [facility] [address] [place] [address] Dr. Rc Foster Erythrocyte distribution width (RBC) [Ratio] 12.2 % Normal 11.0-15.0 [facility] Comment on above: Performed By: #### C BC #### [facility] [address] [place] [address] Dr. Rc Foster Hematocrit (Bld) [Volume fraction] 39.8 % Normal 36.0-48.0 [facility] Comment on above: Performed By: #### C BC #### [facility] [address] [place] [address] Dr. Rc Foster Hemoglobin (Bld) [Mass/Vol] 13.1 g/dL Normal 12.0-16.0 [facility] Comment on above: Performed By: #### C BC #### [facility] [address] [place] [address] Dr. Rc Foster IG # 0.02 10e3/ul Normal 0.00-0.03 [facility] Comment on above: Performed By: #### C BC #### [facility] [address] [address] [address] Rc Foster IG % 0.4 % Normal 0.0-0.5 [facility] Comment on above: Performed By: #### C BC #### [facility] [address] [place] [address] Dr. Rc Foster LYMPH # 2.1 103/ul Normal 1.2-3.8 [facility] Comment on above: Performed By: #### C BC #### [facility] [address] [place] [address] Dr. Rc Foster Lymphocytes/100 WBC (Bld) 37.1 % Normal 20.5-60.0 [facility] Comment on above: Performed By: #### C BC #### [facility] [address] [place] [address] Dr. Rc Foster MANUAL DIFF REQ NO Normal [facility] Comment on above: Performed By: #### C BC #### [facility] [address] [place] [address] Dr. Rc Foster MCH (RBC) [Entitic mass] 28.7 pg Normal 26.7-34.0 [facility] Comment on above: Performed By: #### C BC #### [facility] [address] [place] [address] Dr. Rc Foster MCHC (RBC) [Mass/Vol] 32.9 g/dL Normal 29.9-35.2 [facility] Comment on above: Performed By: #### C BC #### [facility] [address] [place] [address] Dr. Rc Foster MCV (RBC) [Entitic vol] 87.1 fL Normal 81.0-99.0 [facility] Comment on above: Performed By: #### C BC #### [facility] [address] [place] [address] Dr. Rc Foster MONO # 0.4 103/ul Normal 0.3-0.8 [facility] Comment on above: Performed By: #### C BC #### [facility] [address] [place] [address] Dr. Rc Foster Monocytes/100 WBC (Bld) 6.7 % Normal 1.7-12.0 [facility] Comment on above: Performed By: #### C BC #### [facility] [address] [place] [address] Dr. Rc Foster NEUT # 2.9 103/ul Normal 1.4-6.5 [facility] Comment on above: Performed By: #### C BC #### [facility] [address] [place] [address] Dr. Rc Foster Neutrophils/100 WBC (Bld) 50.5 % Normal 43.0-75.0 [facility] Comment on above: Performed By: #### C BC #### [facility] [address] [place] [address] Dr. Rc Foster Platelet mean volume (Bld) [Entitic vol] 9.7 fL Normal 9.5-13.5 [facility] Comment on above: Performed By: #### C BC #### [facility] [address] [place] [address] Dr. Rc Foster PLT 189 103/ul Normal 150-450 [facility] Comment on above: Performed By: #### C BC #### [facility] [address] [place] [address] Dr. Rc Foster RBC 4.57 106/ul Normal 4.20-5.40 [facility] Comment on above: Performed By: #### C BC #### [facility] [address] [place] [address] Dr. Rc Foster WBC 5.7 103/ul Normal 4.0-11.0 [facility] Comment on above: Performed By: #### C BC #### [facility] [address] [place] [address] Dr. Rc Foster GLYCOHEMOGLOBIN A1Con 2021 ADA RECOMMENDATION SEE BELOW Normal [facility] Comment on above: Result Comment: ADA RECOMMENDED LIMIT 4.0 - 6.0 ADA THERAPEUTIC TARGET < 7.0 ACTION SUGGESTED > 7.0 Performed By: #### A 1C #### [facility] [address] [address] [address] Rc Foster Glucose [Mass/Vol] 143 mg/dL Normal [facility] Comment on above: Performed By: #### A 1C #### [facility] [address] [address] [address] Rc Foster HbA1c (Bld) [Mass fraction] 6.6 % Critically high 4.5-6.2 [facility] Comment on above: Performed By: #### A 1C #### [facility] [address] [address] [address] Rc Foster LIPID PROFILEon 03-30-2022 CHOL-HDL RATIO NORM SEE BELOW Normal [facility] Comment on above: Result Comment: 3.3 - 4.4 LOW RISK 4.4 - 7.1 AVERAGE RISK 7.1 - 11.0 MODERATE RISK >11.0 HIGH RISK Performed By: #### T SH, CMP, LIPID ####[facility] [address] [id number] Foster Cholesterol [Mass/Vol] 184 mg/dL Normal <=200 [facility] Comment on above: Performed By: #### T SH, CMP, LIPID ####[facility] [address] [id number] Foster Cholesterol in HDL [Mass/Vol] 42 mg/dL Normal 40-60 [facility] Comment on above: Performed By: #### T SH, CMP, LIPID ####[facility] [address] [place], [place] [address]QxRodger Foster Cholesterol in LDL [Mass/Vol] 87.0 mg/dL Normal [facility] Comment on above: Performed By: #### T SH, CMP, LIPID ####[facility] [address] [phone] Foster Cholesterol.total/Chol esterol in HDL [Mass ratio] 4.4 {ratio} Normal [facility] Comment on above: Performed By: #### T SH, CMP, LIPID ####[facility] [address] [address]Dr. Rc Foster HDL NORMAL > or = 60 mg/dl - LO W CARDIOVASCULAR RISK <40 mg/dl - HIGH CARDIOVASCULAR RISK Normal [facility] Comment on above: Performed By: #### T SH, CMP, LIPID ####[facility] [address] [address]Dr. Rc Foster LDL CALC NORMAL SEE BELOW Normal [facility] Comment on above: Result Comment: <100 mg/dl OPTIMAL 100 - 129 mg/dl NEAR OR ABOVE OPTIMAL 130 - 159 mg/dl BORDERLINE HIGH 160 - 189 mg/dl HIGH >190 mg/dl VERY HIGH Performed By: #### T SH, CMP, LIPID ####[facility] [address] [address]Dr. Rc Foster Triglyceride [Mass/Vol] 275 mg/dL Critically high <=150 [facility] Comment on above: Performed By: #### T SH, CMP, LIPID ####[facility] [address] [address]Dr. Rc Foster VLDL CALC 55.0 mg/dL Normal [facility] Comment on above: Performed By: #### T SH, CMP, LIPID ####[facility] [address] [address]Dr. Rc Foster PROF 14(COMP METB)on 022 Albumin [Mass/Vol] 4.0 g/dL Normal 3.4-5.0 [facility] Comment on above: Performed By: #### T SH, CMP, LIPID ####[facility] [address] [address]Dr. Rc Foster Albumin/Globulin [Mass ratio] 1.1 {ratio} Normal [facility] Comment on above: Performed By: #### T SH, CMP, LIPID ####[facility] [address] [address]Dr. Rc Foster ALP [Catalytic activity/Vol] 71 U/L Normal 46-116 [facility] Comment on above: Performed By: #### T SH, CMP, LIPID ####[facility] [address] [address]Dr. Rc Foster ALT [Catalytic activity/Vol] 29 U/L Normal 14-59 [facility] Comment on above: Performed By: #### T SH, CMP, LIPID ####[facility] [address] [address]Dr. Rc Foster Anion gap [Moles/Vol] 13.2 mmol/L Normal [facility] Comment on above: Performed By: #### T SH, CMP, LIPID ####[facility] [address] [place], [place] [address]Dr. Rc Foster AST [Catalytic activity/Vol] 17 U/L Normal 15-37 [facility] Comment on above: Performed By: #### T SH, CMP, LIPID ####[facility] [address] [place], [place] [address]Dr. Rc Foster Bilirubin [Mass/Vol] 0.6 mg/dL Normal 0.2-1.0 [facility] Comment on above: Performed By: #### T SH, CMP, LIPID ####[facility] [address] [place], [place] [address]Dr. Rc Foster Calcium [Mass/Vol] 9.0 mg/dL Normal 8.5-10.1 [facility] Comment on above: Performed By: #### T SH, CMP, LIPID ####[facility] [address] [address]Dr. Rc Foster Chloride [Moles/Vol] 102 mmol/L Normal 98-107 [facility] Comment on above: Performed By: #### T SH, CMP, LIPID ####[facility] [address] [address]Dr. Rc Foster CO2 [Moles/Vol] 27.3 mmol/L Normal 21.0-32.0 [facility] Comment on above: Performed By: #### T SH, CMP, LIPID ####[facility] [address] [address]Dr. Rc Foster Creatinine [Mass/Vol] 1.00 mg/dL Normal 0.55-1.02 [facility] Comment on above: Performed By: #### T SH, CMP, LIPID ####[facility] [address] [phone]. Rc Foster EGFR-AF ERITREAN >60 Normal >=60 [facility] Comment on above: Performed By: #### T SH, CMP, LIPID ####[facility] [address] [address]Dr. Rc Foster EGFR-NON AF ERITREAN 56 mL/min/1.73m2 Critically low >=60 [facility] Comment on above: Performed By: #### T SH, CMP, LIPID ####[facility] [address] [address]Dr. Siribreanna Foster Globulin (S) [Mass/Vol] 3.5 g/dL Normal [facility] Comment on above: Performed By: #### T SH, CMP, LIPID ####[facility] [address] [address]Dr. Rc Foster Glucose [Mass/Vol] 159 mg/dL Critically high 74-106 [facility] Comment on above: Performed By: #### T SH, CMP, LIPID ####[facility] [address] [address]Dr. Siribreanna Foster Potassium [Moles/Vol] 4.5 mmol/L Normal 3.5-5.1 [facility] Comment on above: Performed By: #### T SH, CMP, LIPID ####[facility] [address] [address]Dr. Rc Foster Protein [Mass/Vol] 7.5 g/dL Normal 6.4-8.2 [facility] Comment on above: Performed By: #### T SH, CMP, LIPID ####[facility] [address] [address]Dr. Rc Foster Sodium [Moles/Vol] 138 mmol/L Normal 136-145 [facility] Comment on above: Performed By: #### T SH, CMP, LIPID ####[facility] [address] [place], [place] [address]Pv. Rc Foster Urea nitrogen [Mass/Vol] 23.0 mg/dL Critically high 7.0-18.0 [facility] Comment on above: Performed By: #### T SH, CMP, LIPID ####[facility] [address] [place], [place] [address]Fx. Rc Foster Urea nitrogen/Creatinine [Mass ratio] 23.0 mg/mg Normal [facility] Comment on above: Performed By: #### T SH, CMP, LIPID ####[facility] [address] [place], [place] [address]Ad. Rc Foster TSHon 03-30-2022 TSH 2.807 uIU/mL Normal 0.358-3.740 [facility] Comment on above: Performed By: #### T SH, CMP, LIPID ####[facility] [address] [place], [place] [address]Bc. Rc Foster US THYROIDon 03-30-2022 US THYROID [...] BERNY CANO Date: 2022-03-30 11:03 Normal [facility] MG MAMM SCREEN 3D LEX CADon 03-19-2022 MG MAMM SCREEN 3D LEX CAD Patient: CARROLL HARDEN Exam Date: 03/19/2022 : 1960 Gender:F Ordering : DR ROBERT CRUZ D.O. Admission #: [id number] Family : Order #: [id number] CLICK HERE TO VIEW EXAM RADIOLOGY REPORT [...] Treatments None Family Cancers None LOCATION: [facility] BREAST COMPOSITION: Scattered areas fibroglandular density. [...] M.D. on 03/23/2022 at 11:59 Normal [facility] CBC AUTO DIFFon 11-27-2021 BASO # 0.0 103/ul Normal 0.0-0.1 [facility] Comment on above: Performed By: #### C BC #### [facility] [address] [address] [address] Rc Foster Basophils/100 WBC (Bld) 0.7 % Normal 0.2-2.0 [facility] Comment on above: Performed By: #### C BC #### [facility] [address] [address] [address] Rc Foster EO # 0.6 103/ul Normal 0.0-0.7 [facility] Comment on above: Performed By: #### C BC #### [facility] [address] [place] [address] Dr. Rc Foster Eosinophils/100 WBC (Bld) 10.3 % Critically high 0.9-7.0 [facility] Comment on above: Performed By: #### C BC #### [facility] [address] [place] [address] Dr. Rc Foster Erythrocyte distribution width (RBC) [Ratio] 12.4 % Normal 11.0-15.0 [facility] Comment on above: Performed By: #### C BC #### [facility] [address] [place] [address] Dr. Rc Foster Hematocrit (Bld) [Volume fraction] 41.2 % Normal 36.0-48.0 [facility] Comment on above: Performed By: #### C BC #### [facility] [address] [place] [address] Dr. Rc Foster Hemoglobin (Bld) [Mass/Vol] 13.4 g/dL Normal 12.0-16.0 [facility] Comment on above: Performed By: #### C BC #### [facility] [address] [place] [address] Dr. Rc Foster IG # 0.01 10e3/ul Normal 0.00-0.03 [facility] Comment on above: Performed By: #### C BC #### [facility] [address] [place] [address] Dr. Rc Foster IG % 0.2 % Normal 0.0-0.5 [facility] Comment on above: Performed By: #### C BC #### [facility] [address] [place] [address] Dr. Rc Foster LYMPH # 2.3 103/ul Normal 1.2-3.8 [facility] Comment on above: Performed By: #### C BC #### [facility] [address] [place] [address] Dr. Rc Foster Lymphocytes/100 WBC (Bld) 40.6 % Normal 20.5-60.0 [facility] Comment on above: Performed By: #### C BC #### [facility] [address] [place] [address] Dr. Rc Foster MANUAL DIFF REQ NO Normal [facility] Comment on above: Performed By: #### C BC #### [facility] [address] [place] [address] Dr. Rc Foster MCH (RBC) [Entitic mass] 28.8 pg Normal 26.7-34.0 [facility] Comment on above: Performed By: #### C BC #### [facility] [address] [place] [address] Dr. Rc Foster MCHC (RBC) [Mass/Vol] 32.5 g/dL Normal 29.9-35.2 [facility] Comment on above: Performed By: #### C BC #### [facility] [address] [place] [address] Dr. Rc Foster MCV (RBC) [Entitic vol] 88.6 fL Normal 81.0-99.0 [facility] Comment on above: Performed By: #### C BC #### [facility] [address] [place] [address] Dr. Rc Foster MONO # 0.4 103/ul Normal 0.3-0.8 [facility] Comment on above: Performed By: #### C BC #### [facility] [address] [place] [address] Dr. Rc Foster Monocytes/100 WBC (Bld) 7.6 % Normal 1.7-12.0 [facility] Comment on above: Performed By: #### C BC #### [facility] [address] [place] [address] Dr. Rc Foster NEUT # 2.3 103/ul Normal 1.4-6.5 [facility] Comment on above: Performed By: #### C BC #### [facility] [address] [place] [address] Dr. Rc Foster Neutrophils/100 WBC (Bld) 40.6 % Critically low 43.0-75.0 [facility] Comment on above: Performed By: #### C BC #### [facility] [address] [address] [address] Rc Foster Platelet mean volume (Bld) [Entitic vol] 9.6 fL Normal 9.5-13.5 [facility] Comment on above: Performed By: #### C BC #### [facility] [address] [place] [address] Dr. Rc Foster PLT 194 103/ul Normal 150-450 [facility] Comment on above: Performed By: #### C BC #### [facility] [address] [place] [address] Dr. Rc Foster RBC 4.65 106/ul Normal 4.20-5.40 [facility] Comment on above: Performed By: #### C BC #### [facility] [address] [place] [address] Dr. Rc Foster WBC 5.5 103/ul Normal 4.0-11.0 [facility] Comment on above: Performed By: #### C BC #### [facility] [address] [place] [address] Dr. Rc Foster GLYCOHEMOGLOBIN A1Con 2021 ADA RECOMMENDATION SEE BELOW Normal [facility] Comment on above: Result Comment: ADA RECOMMENDED LIMIT 4.0 - 6.0 ADA THERAPEUTIC TARGET < 7.0 ACTION SUGGESTED > 7.0 Performed By: #### A 1C #### [facility] [address] [place] [address] Dr. Rc Foster Glucose [Mass/Vol] 131 mg/dL Normal [facility] Comment on above: Performed By: #### A 1C #### [facility] [address] [place] [address] Dr. Rc Foster HbA1c (Bld) [Mass fraction] 6.2 % Normal 4.5-6.2 [facility] Comment on above: Performed By: #### A 1C #### [facility] [address] [place] [address] Dr. Rc Foster PROF CHEM 8 (BAS METB)on Anion gap [Moles/Vol] 15.2 mmol/L Normal [facility] Comment on above: Performed By: #### T MARY JANE, BMP #### [facility] [address] [place] [address] Dr. Rc Foster Calcium [Mass/Vol] 8.5 mg/dL Normal 8.5-10.1 [facility] Comment on above: Performed By: #### T SH, BMP #### [facility] [address] [address] [address] Rc Foster Chloride [Moles/Vol] 100 mmol/L Normal 98-107 [facility] Comment on above: Performed By: #### T MARY JANE, BMP #### [facility] [address] [place] [address] Dr. Rc Foster CO2 [Moles/Vol] 26.6 mmol/L Normal 21.0-32.0 [facility] Comment on above: Performed By: #### T MARY JANE, BMP #### [facility] [address] [place] [address] Dr. Rc Foster Creatinine [Mass/Vol] 1.15 mg/dL Critically high 0.55-1.02 [facility] Comment on above: Performed By: #### T MARY JANE, BMP #### [facility] [address] [place] [address] Dr. Rc Foster EGFR-AF ERITREAN 58 mL/min/1.73m2 Critically low >=60 [facility] Comment on above: Performed By: #### T MARY JANE, BMP #### [facility] [address] [place] [address] Dr. Rc Foster EGFR-NON AF ERITREAN 48 mL/min/1.73m2 Critically low >=60 [facility] Comment on above: Performed By: #### T MARY JANE, BMP #### [facility] [address] [place] [address] Dr. Rc Foster Glucose [Mass/Vol] 211 mg/dL Critically high 74-106 [facility] Comment on above: Performed By: #### T MARY JANE, BMP #### [facility] [address] [place] [address] Dr. Rc Foster Potassium [Moles/Vol] 4.8 mmol/L Normal 3.5-5.1 [facility] Comment on above: Performed By: #### T SH, BMP #### [facility] [address] [place] [address] Dr. Rc Foster Sodium [Moles/Vol] 137 mmol/L Normal 136-145 [facility] Comment on above: Performed By: #### T SH, BMP #### [facility] [address] [place] [address] Dr. Rc Foster Urea nitrogen [Mass/Vol] 33.0 mg/dL Critically high 7.0-18.0 [facility] Comment on above: Performed By: #### T SH, BMP #### [facility] [address] [place] [address] Dr. Rc Foster Urea nitrogen/Creatinine [Mass ratio] 28.7 mg/mg Normal [facility] Comment on above: Performed By: #### T SH, BMP #### [facility] [address] [place] [address] Dr. Rc Foster TSHon 11-27-2021 TSH 0.744 uIU/mL Normal 0.358-3.740 [facility] Comment on above: Performed By: #### T SH, BMP #### [facility] [address] [place] [address] Dr. Rc Foster SYMPTOMATIC COVID-19 ANTIGEN on 10-28-2021 EUA Statement SEE BELOW Normal [facility] Comment on above: Result Comment: This [...] revoked sooner. Performed By: #### C VDAGS ####[facility] [address] [place], [place] [address]YzRodger Foster SARS-CoV-2 (COVID-19) RNA YARED+probe Ql (Unsp spec) Negative Normal NEGATIVE [facility] Comment on above: Performed By: #### C VDAGS ####[facility] [address] [place], [place] [address]OkRodger Foster GLYCOHEMOGLOBIN A1Con 2021 ADA RECOMMENDATION SEE BELOW Normal [facility] Comment on above: Result Comment: ADA RECOMMENDED LIMIT 4.0 - 6.0 ADA THERAPEUTIC TARGET < 7.0 ACTION SUGGESTED > 7.0 Performed By: #### A 1C #### [facility] [address] [address] [address] Rc Foster Glucose [Mass/Vol] 128 mg/dL Normal [facility] Comment on above: Performed By: #### A 1C #### [facility] [address] [address] [address] Rc Foster HbA1c (Bld) [Mass fraction] 6.1 % Normal 4.5-6.2 [facility] Comment on above: Performed By: #### A 1C #### [facility] [address] [address] [address] Rc Foster Discharge CCD Assessmenton 0 09-06-2020 Discharge CCD Assessment [facility] Patient: CARROLL HARDEN [facility] [place] [address] MR#: [id number] DISCHARGE CCD ASSESSMENT : 58 Service Date: 09/06/20 1018 Discharge CCD Assessment Assessment Patient discharged home to continue exercises, pain medication, and wound care Electronically Signed eSign Date and Time Melyssa Flores 09/06/20 1019 Tera Hernandez MD Normal [facility] GLUCOSE METERon 09-06-2020 Glucose [Mass/Vol] 126 mg/dL High 70-99 [facility] Comment on above: Order Comment: CONSE RVATION Result Comment: Fast ing GLUCOSE reference range has been updated per (ADA) [place] [employer]'s recommendation. 07/18/2018 Performed By: #### L 500.04030 ####Test performed at: [place] [address] Glucose [Mass/Vol] 205 mg/dL High 70-99 [facility] Comment on above: Order Comment: CONSE RVATION Result Comment: Fast ing GLUCOSE reference range has been updated per (ADA) [place] Diabetes Association's recommendation. 07/18/2018 Insulin per sl scale Performed By: #### L 500.79207 #### Test performed at: [place] [address] Internal Med Progress Noteon 09-06-2020 Internal Med Progress Note [facility] Patient: CARROLL HARDEN [address] [place] [address] MR#: [id number] PROGRESS NOTE - Internal Medicine : 58 [...] RES, Katarzy na MD 09/06/20 1134 Normal [facility] Orthopedic Progress Noteon 0 09-06-2020 Orthopedic Progress Note [facility] Patient: CARROLL HARDEN [facility] [place] [address] MR#: [id number] PROGRESS NOTE - Orthopedic : 58 Service [...] RN 09/06/20 1022 Tera Hernandez MD Normal [facility] Anesthesia Noteon 09-05-2020 Anesthesia Note [facility] Patient: CARROLL HARDEN [address] [place] [address] MR#: [id number] ANESTHESIA NOTE : Service Date: 09/05/20811 Post-anesthesia [...] Signed eSign Date and Time Krystian Akers PYTHON DEVELOPER-DIMENSION MILL WORKER 09/05/20 0813 Chu Glez MD Normal [facility] BASIC MET PANELon 09-05-2020 Anion gap [Moles/Vol] 12 mmol/L Normal 6-18 [facility] Comment on above: Performed By: #### L 500.62722, L500.71186 #### Test performed at: [address] [address] Calcium [Mass/Vol] 8.7 mg/dL Normal 8.5-10.1 [facility] Comment on above: Performed By: #### L 500.13430, L500.30685 #### Test performed at: [address] [address] Chloride [Moles/Vol] 101 mmol/L Normal 98-107 [facility] Comment on above: Performed By: #### L 500.57845, L500.71014 #### Test performed at: [address] [address] CO2 [Moles/Vol] 25 mmol/L Normal 21-32 [facility] Comment on above: Performed By: #### L 500.40590, L500.77727 #### Test performed at: [address] [address] Creatinine [Mass/Vol] 1.020 mg/dL Normal 0.550-1.020 [facility] Comment on above: Performed By: #### L 500.85191, L500.98637 #### Test performed at: [address] [address] Glucose [Mass/Vol] 264 mg/dL High 70-99 [facility] Comment on above: Result Comment: Fast ing GLUCOSE reference range has been updated per (ADA) [place] Diabetes Association's recommendation. 07/18/2018 Performed By: #### L 500.87115, L500.74063 #### Test performed at: [address] [address] OSM 289 mosm/kg Normal 270-300 [facility] Comment on above: Performed By: #### L 500.51311, L500.83710 #### Test performed at: [address] [address] Potassium [Moles/Vol] 4.5 mmol/L Normal 3.5-5.1 [facility] Comment on above: Performed By: #### L 500.69967, L500.95656 #### Test performed at: [address] [address] Sodium [Moles/Vol] 134 mmol/L Low 136-145 [facility] Comment on above: Performed By: #### L 500.42295, L500.24694 #### Test performed at: [address] [address] Urea nitrogen [Mass/Vol] 17 mg/dL Normal 7-18 [facility] Comment on above: Performed By: #### L 500.75002, L500.24453 #### Test performed at: [address] [address] GFR ESTIMATEon 09-05-2020 IF AMER > 60 Normal > 60 [facility] Comment on above: Result Comment: eGFR (Estimated GFR) Units of measure:mL/min/1.73 meters sq. *CALCULATION REVISED 02/11/2015;IDMS-traceable MDRD equation eGFR is derived from the reexpressed MDRD Study equation using the following parameters: serum creatinine, age, gender and race. An eGFR<60 mL/min/1.73m2 for >3 months is consistent with chronic kidney disease. Refer to KDOQI guidelines for clinical interpretation. Performed By: #### L 500.54167, L500.74897 #### Test performed at: [address] [address] IF non-AFR AMER 55 Low > 60 [facility] Comment on above: Performed By: #### L 500.15469, L500.50682 #### Test performed at: [address] [address] GLUCOSE METERon 09-05-2020 Glucose [Mass/Vol] 177 mg/dL High 70-99 [facility] Comment on above: Order Comment: CONSE RVATION Result Comment: Fast ing GLUCOSE reference range has been updated per (ADA) [place] Diabetes Association's recommendation. 07/18/2018 Performed By: #### L 500.40471 #### Test performed at: [address] [address] Glucose [Mass/Vol] 310 mg/dL High 70-99 [facility] Comment on above: Result Comment: Fast ing GLUCOSE reference range has been updated per (ADA) [place] Diabetes Association's recommendation. 07/18/2018 Insulin per sl scale Performed By: #### L 500.10759 ####Test performed at: [address] [address] Glucose [Mass/Vol] 281 mg/dL High 70-99 [facility] Comment on above: Result Comment: Fast ing GLUCOSE reference range has been updated per (ADA) [place] Diabetes Association's recommendation. 07/18/2018 Insulin per sl scale Performed By: #### L 500.33593 #### Test performed at: [address] [address] Glucose [Mass/Vol] 105 mg/dL High 70-99 [facility] Comment on above: Result Comment: Fast ing GLUCOSE reference range has been updated per (ADA) [place] Diabetes Association's recommendation. 07/18/2018 Performed By: #### L 500.80788 #### Test performed at: [place] [address] HGB AND HCTon 09-05-2020 Hematocrit (Bld) [Volume fraction] 37.5 % Normal 36.0-48.0 [facility] Comment on above: Performed By: #### L 200.85288 #### Test performed at: [place] [address] Hemoglobin (Bld) [Mass/Vol] 12.5 g/dL Normal 12.0-15.0 [facility] Comment on above: Performed By: #### L 200.85820 #### Test performed at: [place] [address] Internal Med Progress Noteon 09-05-2020 Internal Med Progress Note [facility] Patient: CARROLL HARDEN [address] [place] [address] MR#: [id number] PROGRESS NOTE - Internal Medicine : 58 [...] input. Disc (more content not included)... Normal [facility] OT Therapy Recommendationson 09-05-2020 OT Therapy Recommendations [facility] Patient: [facility]ARROLL HARDEN [facility] [place] [address] MR#: [id number] OT THERAPY RECOMMENDATIONS : 58 Service Date: 09/05/20 1511 Therapy Recommendations Therapy Recommendations Recommendations OT evaluation completed. OT recommends HOME with FAmily assist. No further acute OT needs are indicated at this time. Electronically Signed eSign Date and Time Trupti Rojas OT 09/05/20 1512 Normal [facility] Orthopedic Progress Noteon 0 09-05-2020 Orthopedic Progress Note [facility] Patient: CARROLL HARDEN [address] [address] MR#: [id number] PROGRESS NOTE - Orthopedic : 58 Service [...] KHAN 09/05/20 1429 Tera Hernandez MD Normal [facility] PT Therapy Recommendationson 09-05-2020 PT Therapy Recommendations [facility] Patient: CARROLL HARDEN [address] [id number] MR#: [id number] PT THERAPY RECOMMENDATIONS : 58 Service Date: 09/05/20 0914 Therapy Recommendations Therapy Recommendations Recommendations PT eval complete. No further acute PT needs. Recommend d/c home /c family assist. Electronically Signed eSign Date and Time KrystenTiffanie PT 09/05/20 0914 Normal [facility] z OT Inpatient Discharge Not juan 09-05-2020 z OT Inpatient Discharge Note [facility] Patient: CARROLL HARDEN [address] [place], [place] [address] MR#: [id number] OT INPATIENT DISCHARGE NOTE : 58 Service [...] Time Trupti Rojas OT 09/05/20 1534 Normal [facility] z OT Inpatient Evaluationon 09-05-2020 z OT Inpatient Evaluation [facility] Patient: CARROLL HARDEN [address] [place], [place] [address] MR#: [id number] OT INPATIENT EVALUATION : 58 Inpatient OT HPI Date of Service 09/05/20 Time In: 1401 Time Out: 1412 Total Treatment Time (Mins) 11 Visit Reason LATERAL RECESS STENOSIS W/ RADICULOPATHY Surgery Type/Date s/p L L4-5 LAmi, foraminotomy, decompression on 09.04.20/ Lumbar spine precautions Referral Date 09/04/20 Tx Diagnosis: LOW BACK PAIN Insurance Name RAMIRO CARLOS POS [facility] Hospital Course Pt is a left hand [...] 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 Objective Precautions Lumbar Spine [...] Excellent Nader (more content not included)... Normal [facility] z PT Inpatient Discharge Not juan 09-05-2020 z PT Inpatient Discharge Note [facility] Patient: CARROLL HARDEN [address] [place] [address] MR#: [id number] PT INPATIENT DISCHARGE NOTE : 58 Service [...] Time Tiffanie Bashir PT 09/05/20 1139 Normal [facility] z PT Inpatient Evaluationon 09-05-2020 z PT Inpatient Evaluation [facility] Patient: CARROLL HARDEN [address] [place] [address] MR#: [id number] PT INPATIENT EVALUATION : 58 Service Date: 09/05/20 0928 Inpatient PT HPI Date of Service 09/05/20 Time In: 0845 Time Out: 0907 Total Treatment Time (Mins) 22 Room Number 624 Visit Reason LATERAL RECESS STENOSIS W/ RADICULOPATHY Surgery Type: L L4-5 lami, foraminotomy, decompression Surgery Date: 09/04/20 Referral Date 09/04/20 Tx Diagnosis: LOW BACK PAIN Insurance Name BondandDeni [facility] Hospital Course 60 y.o female at [employer] [facility] [facility] for above sx d/t lateral recess [...] posture. 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 Pt agreeable to use of her cane [...] Time Tiffanie Bashir PT 09/05/20 1502 Normal [facility] GLUCOSE METERon 09-04-2020 Glucose [Mass/Vol] 94 mg/dL Normal 70-99 [facility] Comment on above: Result Comment: Fast ing GLUCOSE reference range has been updated per (ADA) [place] Diabetes [employer]'s recommendation. 07/18/2018 Performed By: #### L 500.06610 ####Test performed at: [place] [address] Internal Medicine Consultati onon 09-04-2020 Internal Medicine Consultation [facility] Patient: CARROLL HARDEN [address] [place] [address] MR#: [id number] CONSULTATION - Internal Medicine : 58 Service Date: 09/04/20 154 History of Present Illness Referring Physician Tera [...] cath 2015 which was okay, who is POD-0 s/p [...] by JORDON MATHUR on 12/11/18 0916 Last Taken: 09/03/20 Last Action: Reviewed on [...] as Reported by JORDON MATHUR on 12/11/18 0921 Last Action: Reviewed on 09/04/20 105 by [...] of Systems (more content not included)... Normal [facility] OPERATIVE REPORTon 1 OPERATIVE REPORT NAME: CARROLL HARDEN MR#: [id number] SURGEON: Tera Hernandez MD DATE OF SURGERY: [...] there were no complications. TERA HERNANDEZ MD [facility] PT NAME: CARROLL HARDEN MR#: [id number] [address] [place] [address] ACCT: [id number] : 58 OPERATIVE REPORT JFS/MODL/[id number] E/S: Tera Hernandez MD 09/18/20 1207 Electronically Signed [facility] PT NAME: CARROLL HARDEN MR#: [id number] [address] [place], [place] [address] ACCT: [id number] : 58 OPERATIVE REPORT Normal [facility] Primary Residenton Primary Resident [facility] Pt Name: CARROLL HARDEN MR#: [id number] [address] [place] [address] ACCT: [id number] [place] [address] : 58 Service Date: 09/04/20 1603 Primary Resident/Call Primary Resident: [id number] [address] After Hours Call: [phone] Red Team Electronically Signed eSign Date and Time Ana Flanagan RES 09/16/20 1521 Normal [facility] LUMBAR SPINE 2 OR 3 VIEWSon 09-03-2020 LUMBAR SPINE 2 OR 3 VIEWS STUDY: LUMBAR SPINE 2 OR 3 VIEWS; 09/04/2020 2:57 pm INDICATION: LEFT L4-L5 LAMINECTOMY,FORAMINOT JOSE ANGEL,DECOMPRESSION. COMPARISON: None. ACCESSION NUMBER(S): [id number] ORDERING CLINICIAN: Tera Hernandez FINDINGS: Intraoperative fluoroscopy of the lumbar spine demonstrates surgical instruments posterior to L5. IMPRESSION: As above Normal [facility] CHEST PA/AP & LATERALon CHEST PA/AP & LATERAL STUDY: CHEST PA/AP LATERAL; 08/25/2020 11:00 am INDICATION: SOB/PAT. COMPARISON: None. ACCESSION NUMBER(S): [id number] ORDERING CLINICIAN: Madelyn Leslie FINDINGS: The lungs are clear without pleural effusion. Normal heart size, mediastinum, elzbieta, and pulmonary vasculature. IMPRESSION: No active disease in the chest. Normal [facility] CONSULTATION REPORTon 2020 CONSULTATION REPORT NAME: CARROLL HARDEN MR#: [id number] MOBILE PHONE SALESPERSON: Madelyn Leslie MD DATE OF CONSULTATION: 08/25/2020 [...] pulse ox is 98% on room air. [facility] PT NAME: CARROLL HARDEN MR#: [id number] [address] [place] [address] ACCT: [id number] : 58 CONSULTATION HEENT: Atraumatic head. 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 IMPRESSION: 1. Preop clearance for L4-L5 disk [...] courtesy of this consultation. MADELYN LESLIE MD MS/MODL/[id number] E/S: Madelyn Leslie MD 08/26/20 1270 Electronically Signed [facility] PT NAME: CARROLL HARDEN MR#: [id number] [address] [place], [place] [address] ACCT: [id number] : 58 CONSULTATION Normal [facility] LUMB SP COMP W FLEX/EXT 6 VW S>on 08-08-2020 LUMB SP COMP W FLEX/EXT 6 VWS> STUDY: LUMB SP COMP W FLEX/EXT 6 VWS>; 08/08/2020 9:43 am INDICATION: BACK PAIN. COMPARISON: No available comparisons. ACCESSION NUMBER(S): [id number] ORDERING CLINICIAN: Tera Hernandez TECHNIQUE: 6 views [...] L5-S1 level. No evidence of instability.. Normal [facility] XR SHLDR >/=3V AP/RUSH AP/OTH R [...] Jul 03 2018 10:17AM EST [id number] N [facility] ANES Holly 06-20-2018 ANES POST HNO ID: [id number] Author: Rohit Velarde Service: Anesthesiology Author Type: [...] 20, 2018 TIME: 2:38 PM [facility]AG[facility] 06-20-2018 ANES PREOP HNO ID: [id number] Author: Rohit Velarde Service: Anesthesiology Author Type: [...] injection (XYLOCAINE) 0.1-0.2 mL INTRADERMAL PRN Isreal Mccabe (Santos) Canadian lactated ringers infusion 5-30 mL/hr INTRAVENOUS CONTINUOUS Isreal Kim) Canadian ceFAZolin iv piggyback 2 g in D5W [...] June 20, 2018 TIME: 9:35 AM CSN: [id number] [facility] BRIEF OP NOTon 06-20-2018 BRIEF OP NOT HNO ID: [id number] Author: Kusum Francisco Service: Orthopaedic Surgery Author Type: Resident Type: Brief Op Note Filed: 06/20/2018 5:49 PM Note Text: BRIEF OP NOTE LOG ID: [id number] Surgery/Procedure Date: 06/20/2018 Incision/Procedure Start Time: 11:18 AM Incision Close/Procedure End Time: 1:17 PM Surgeon(s)/Procedural ist(s) and Tank Crewmember(s): Surgeon(s) and Role: * Jenna Lentz - [...] 20, 2018 TIME: 5:49 PM PAGER/CONTACT #: [facility] CASE MANAGEMon 06-20-2018 CASE MANAGEM HNO ID: [id number] Author: May Herrera (Sw) Service: Care Management Author Type: Cheese Tester Type: Care Mgt Progress Note Filed: 06/20/2018 [...] is pcp summary of care sent via Braingaze () Nurse to provide discharge instructions. TRANSPORTATION ARRANGEMENTS: Car Spouse ADDITIONAL CONTACT RESOURCES: Needs Prior to Discharge: Ready for Discharge Appointments for Next 45 Days Date Time Provider Location Dept Phone 07/03/2018 10:00 AM CAROLA BAPTISTE AT [phone] 07/03/2018 10:30 AM GABRIEL CANTU) LATOSHA AT [phone] 07/31/2018 2:15 PM JENNA LENTZ AT [phone] Pt to be discharged home to follow up as above. SIGNATURE: DARIO Saini PATIENT NAME: Carroll Harden DATE: June 20, 2018 TIME: 5:31 PM PAGER/CONTACT #: [phone] [facility] CASE MGT INIT ASSESon 2018 CASE MGT INIT ASSES HNO ID: [id number] Author: May Herrera (Sw) Service: Care Management Author Type: Cheese Tester Type: Care Mgt Initial Assessment Filed: 06/20/2018 [...] None Has the Patient Been in a Residential Facility in the Past 30 days? 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 O.Therapy recommend home. Spouse visiting at bedside and will transport pt home later today.Further discharge needs not anticipated.SW/TCC to follow to assist with plans for discharge. SIGNATURE: DARIO Saini PATIENT NAME: Carroll Harden DATE: June 20, 2018 TIME: 5:27 PM PAGER/CONTACT #: [phone] [facility] CONSULTon 06-20-2018 CONSULT HNO ID: [id number] Author: Dulce Green Service: General Internal Medicine [...] Disp: Rfl: 06/19/2018 at 0630 rizatriptan (MAXALT SMELTER LINER) 10 mg disintegrating tablet DISSOLVE 1 TABLET [...] the care of your patient. Dulce Green APRN.LABORER [employer] June 20, 2018 4:[address] [facility] NURSING PROGon 06-20-2018 Protein mass conc HNO ID: [id number] Author: Fela (Rn) FLETCHER Phillips Service: (none) Author Type: Registered Nurse Type: Nursing Progress Note Filed: 06/20/2018 7:39 PM Note Text: Nursing Progress Note Patient Name: Carroll Harden Patient Location: [address] [place] Daily Note: 1545. Care assumed. Pt resting [...] at bedside. 1720. Dr. Blake and Dulce ENVELOPE STAMPING MACHINE OPERATOR at bedside, plan is to [...] note was completed by: Fela Phillips RN [facility] Protein mass conc HNO ID: [id number] Author: Wendy (Rn) FLETCHER Underwood Service: Nursing Author Type: Registered Nurse Type: Nursing Progress Note Filed: 06/20/2018 10:20 AM Note Text: Nursing Progress Note Patient Name: Carroll Harden Patient Location: [facility]ERY [facility]/ S* Daily Note:Right interscalene nerve block with ultrasound guidance with Dr. Velarde and Dr. Marlow at bedside. Patient tolerated procedure well, VSS, will continue to monitor as we wait for OR team. Resting comfortably with no complaints of pain at this time. This note was completed by: Wendy Underwood RN [facility] OPERATIVE NOon 06-20-2018 OPERATIVE NO HNO ID: [id number] Author: Jenna Lentz Service: Orthopaedic Surgery Author Type: Physician Type: Operative Report Filed: 06/20/2018 1:25 PM Note Text: [place] [address] [place] OPERATIVE REPORT NAME: Carroll Harden [facility] #: [id number] DATE: 06/20/2018 (11:18am-1:17pm) AGE: 58 SURGEON 1: Jenna Lentz M.D. VICE PRESIDENT PROCESS: 1. Augie Coates M.D. 2. Kusum Prasad M.D. 3. Mundo Pablo OPERATION: Right total shoulder arthroplasty, biceps tenodesis. ANESTHESIA: General anesthesia with regional interscalene nerve block for postoperative pain control. PREOPERATIVE DIAGNOSIS: Right shoulder primary glenohumeral osteoarthritis. POSTOPERATIVE DIAGNOSIS: Right shoulder primary glenohumeral osteoarthritis, biceps tendinopathy. OPERATIVE INDICATIONS: The patient is a 58 year oldqep-sqjh-vru right-hand dominant white female who has a [...] rotator interval stitch was then passed in pjjufi-fn-lgdiu fashion with a #2 Ticron suture and tied down to close the lateral rotator interval and set the osteotomy superiorly. The two #2 Fiberwire sutures coming out of the bicipital groove were then sequentially passed in a xpwcdn-bn-njwjm fashion medial to the horizontal mattress and [...] none COMPLICATIONS: none apparent Jenna Lentz M.D. [facility] PT EDon 06-20-2018 PT ED HNO ID: [id number] Author: Cindy ValenciaRn) FLETCHER Griffin Service: (none) [...] Signed By: Cindy Griffin RN In Department: [facility] SURGICAL SERVICES [facility] THERAPY NTon 06-20-2018 THERAPY NT HNO ID: [id number] Author: Abi Phillips Service: Occupational Therapy Author Type: Occupational Therapist Type: Therapy (PT/OT/Speech/Resp) Filed: 06/20/2018 4:59 PM Note Text: Occupational Therapy Evaluation SERVICE DATE: 06/20/2018 SERVICE TIME: 1550 to 1640 ROOM: [address] Recommended Discharge Disposition: Home Anticipated Discharge [...] living (ADL) Interventions Provided: Evaluation;Therapeuti c Exercise (04746);Self Senior Care Management (51874) $ Evaluation-Low (86330) Billed Units: 1 unit Therapeutic Exercise (14847) Treatment Minutes: 10 1 unit Skilled Intervention(s): Education in Self Senior Care Management (01957) Treatment Minutes: 28 2 units Skilled Intervention(s): [...] DATE: June 20, 2018 TIME: 4:54 PM [facility] XR SHOULDER 2V AP/TRUE AP [...] Jun 20 2018 2:04PM EST [id number] N [facility] NURSING PROGon 06-09-2018 Protein mass conc HNO ID: [id number] Author: Ivana (Rn) FLETCHER Heller Service: Nursing [...] 2018 11:10 AM Addendum 06/15/18 EKG [facility] FINAL Ivana Heller RN June 15, 2018 4:39 PM Normal [facility] Type and SCR (30D)on 019 ABO/RH(D) Positive Normal [facility] HOSPon 04-28-2018 HOSP Patient:Adalberto Harden MRN: Height:5' 2 (1.575 m) Weight:186 lb (84.369 kg) Outpatient Medications as of 06/20/18: calcium phosphate dibas/vit D3 (VITAMIN D, WITH CALCIUM, ORAL) docusate sodium (COLACE) 100 mg capsule aspirin, enteric coated (ECOTRIN LOW STRENGTH) 81 mg EC tablet oxyCODONE-acetaminoph en (PERCOCET) 5-325 mg tablet rizatriptan (MAXALT SMELTER LINER) 10 mg disintegrating tablet mupirocin (BACTROBAN) 2 [...] 46.0 36.0 Progress Notes (RADIO CT SCAN [facility]): RT Lillian, Tech 06/07/2018 10:04 [...] RT Lillian June 07, 2018 9:54 AM [facility] Vital Signs Date Time Vital Sign Value Performing Clinician Facility 04-29-2023 09:00-0500 Body height 154.94 cm Robert Cruz Other [facility] Other 04-29-2023 09:00-0500 Body mass index (BMI) [Ratio] 33.14 kg/m2 [employer] Other [facility] Other 04-29-2023 09:00-0500 Body weight 79.56 kg Robert Rasmussen [facility] Other [facility] Other 04-29-2023 09:00-0500 Diastolic blood pressure 89 mm[Hg] Robert [facility] Other [facility] Other 04-29-2023 09:00-0500 Respiratory rate 12 /min Robert Ball Other [facility] Other 04-29-2023 09:00-0500 Systolic blood pressure 155 mm[Hg] Robert Ball Other [facility] Other 12-20-2022 13:45-0400 Body height 154.94 cm Robert Ball Other [facility] Other 12-20-2022 13:45-0400 Body mass index (BMI) [Ratio] 34.12 kg/m2 Robert Ball Other [facility] Other 12-20-2022 13:45-0400 Body weight 81.92 kg Robert Ball Other [facility] Other 12-20-2022 13:45-0400 Diastolic blood pressure 96 mm[Hg] Robert Ball Other [facility] Other 12-20-2022 13:45-0400 Respiratory rate 12 /min Robert Ball Other [facility] Other 12-20-2022 13:45-0400 Systolic blood pressure 179 mm[Hg] Rboert Ball Other [facility] Other 08-04-2022 09:45-0400 Body height 154.94 cm Robert Ball Other [facility] Other 08-04-2022 09:45-0400 Body mass index (BMI) [Ratio] 33.33 kg/m2 Robert Ball Other [facility] Other 08-04-2022 09:45-0400 Body weight 80.02 kg Robert Ball Other [facility] Other 08-04-2022 09:45-0400 Diastolic blood pressure 77 mm[Hg] Robert Hamilton Other [facility] Other 08-04-2022 09:45-0400 Respiratory rate 12 /min Robert Ball Other [facility] Other 08-04-2022 09:45-0400 Systolic blood pressure 128 mm[Hg] Robert Cruz Other [facility] Other Encounters Encounter Date Encounter Type Care Provider Facility Start: 06-27-2023 End: 06-28-2023 ambulatory Miriam Barron MD Facility:[facility] Start: 06-06-2023 End: 06-07-2023 ambulatory Miriam [facility] MD [facility] Start: 06-01-2023 End: 06-01-2023 ambulatory Robert Cruz Other [facility] Other Start: 06-01-2023 Telephone encounter Robert Hamilton [facility] Start: 05-23-2023 End: 05-24-2023 ambulatory Miriam Barron MD Facility: [facility] Start: 05-13-2023 End: 05-13-2023 ambulatory Robert Hamilton Other [facility] Other Start: 05-13-2023 Telephone encounter Robert Ball [facility] Start: 05-09-2023 End: 05-09-2023 ambulatory Robert Ball Other [facility] Other Start: 05-09-2023 Telephone encounter Robert Ball [facility] Start: 05-04-2023 End: 05-04-2023 ambulatory Robert Ball Other [facility] Other Start: 05-04-2023 Telephone encounter Robert Ball [facility] Start: 05-02-2023 End: 05-02-2023 ambulatory Robert Ball Other [facility] Other Start: 05-02-2023 Telephone encounter Robert Ball [facility] Start: 04-29-2023 End: 04-29-2023 ambulatory Robert Ball Other [facility] Other Start: 04-29-2023 Office outpatient vi sit 15 minutes Robert Ball [facility] Start: 04-04-2023 End: 04-04-2023 ambulatory Robert Ball Other [facility] Other Start: 04-04-2023 Telephone encounter Robert Ball [facility] Start: 01-24-2023 End: 01-24-2023 ambulatory Robert Ball Other [facility] Other Start: 01-24-2023 Telephone encounter Robert Ball [facility] Start: 12-23-2022 End: 12-23-2022 ambulatory Robert Ball Other [facility] Other Start: 12-23-2022 Telephone encounter Robert Ball [facility] Start: 12-20-2022 End: 12-20-2022 ambulatory Robert Ball Other [facility] Other Start: 12-20-2022 Office outpatient vi sit 15 minutes Robert Ball [facility] Start: 12-17-2022 End: 12-17-2022 ambulatory Robert Ball Other [facility] Other Start: 12-17-2022 Telephone encounter Robert Ball [facility] Start: 11-08-2022 End: 11-08-2022 ambulatory Robert Ball Other [facility] Other Start: 11-08-2022 Telephone encounter Robert Ball [facility] Start: 10-22-2022 End: 10-22-2022 ambulatory Robert Ball Other [facility] Other Start: 10-22-2022 Telephone encounter Robert CHAVAR[facility] Start: 10-13-2022 End: 10-13-2022 ambulatory Robert Cruz Other [facility] Other Start: 10-13-2022 Telephone encounter Robert CHAVARRIA [facility] Start: 09-27-2022 End: 09-27-2022 ambulatory Robert Cruz Other [facility] Other Start: 09-27-2022 Telephone encounter Robert [facility]A [facility] Start: 08-23-2022 End: 08-24-[address] RISHI PARKER Facility:[facility] Start: 08-04-2022 End: 08-04-2022 ambulatory Robert Cruz Other [facility] Other Start: 08-04-2022 Office outpatient vi sit 25 minutes Robert Cruz [facility] Start: 04-03-2022 Encounter for genera l adult medical examination without abnormal findings DR ROBERT CRUZ [facility] Start: 03-30-2022 End: 03-31-2022 ambulatory [...] Start: 07-03-2018 End: 07-03-2018 Patient encounter procedure [facility] Start: 06-20-2018 End: 06-20-2018 Evaluation and management of inpatient [facility] Procedures Date Procedure Procedure Detail Performing Clinician Start: 06-07-2018 Antibody screen JENNA TOVAR Payers Date Payer Category Payer Unknown 2022 [facility] [id number] 2019 Unknown [id number] 1960 Self-pay [id number] 1959 Unknown [id number] 2.16.84 [id number] 1959 Unknown [id number] 2.16.84 [id number] 1959 Unknown [id number] 2.16.84 [id number] 1959 Unknown [id number] 2.16.84 [id number] 1959 Unknown [id number] 2.16.84 [id number] 1959 Unknown [id number] 2.16.84 [id number] 1959 Unknown [id number] 2.16. [id number] 1959 Unknown [id number] 2.16. [id number] 1959 Unknown [id number] 2.16. [id number] Unknown [id number] 2.16.84 [id number] Social History Date Type Detail Facility Sex Assigned At [facility] Other Clinical Notes 08-04-2022 to 06-01-2023 Note [...] and without status migrainosus (ICD-10 - G43.719) [facility] Other 01-15-2024 Evaluation note* Encounter Date Diagnosis Assessment Notes Treatment Notes Treatment Clinical Notes Apr, Intractable chronic migraine without aura and without status migrainosus (ICD-10 - G43.719) [facility] Other 01-08-2024 Evaluation note* Encounter Date Diagnosis Assessment Notes Treatment Notes Treatment Clinical Notes Apr, Intractable chronic migraine without aura and without status migrainosus (ICD-10 - G43.719) [facility] Other 01-05-2024 Evaluation note* Encounter Date Diagnosis [...] Begin Amitriptyline Stop Tizanidine. 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 May want to cut back on Zanaflex. [...] Pain in left shoulder (ICD-10 - M25.512) [facility] Other 06-30-2023 Evaluation note* Encounter Date Diagnosis Assessment Notes Treatment Notes Treatment Clinical Notes Sep, Type 2 diabetes mellitus with hyperglycemia, without long-term current use of insulin (ICD-10 - E11.65) [facility] Other 06-05-2023 Evaluation note* Encounter Date Diagnosis Assessment Notes Treatment Notes Treatment Clinical Notes Sep, Candidiasis, intertriginous (ICD-10 - B37.2) [facility] Other 04-12-2023 Evaluation note* Encounter Date Diagnosis [...] use, the patient reduces the risk for NC, CVA, HTN, cardiac dysrhythmias and sudden cardiac [...] Jul, Other specified hypothyroidism (ICD-10 - E03.8) [facility] Other Evaluation noteNo InformationNort [employer] Other History general Narrative - Reported* Type [...] LEFT HEART CATHETERIZATION 2016 Hospitalization History SEE [facility] Other History general Narrative - Reported* Type [...] Right knee arthroscopy 10/2022 Hospitalization History SEE [facility] Other Reason for referral (narrative)* Reason Evaluation of right knee pain Diagnosis 1 Strain of right knee , subsequent encounter (R12.848F) Referral Organization [facility]e Referring Provider First Name Robert Referring Provider Last Name Hamilton Referring Provider Specialty Internal Il yoni Referred Provider Rishi Parker Jr Referred Provider Specialty Orthopedic S urgery Referral Priority Routine [facility] Other Reason for referral (narrative)* Reason Referral for neck pa in Diagnosis 1 Cervicalgia (M54.2) Diagnosis 2 Cervical spondylosis (M47.812) Referral Organization [facility] Referring Provider First Name Robert Referring Provider Last Name Hamilton Referring Provider Specialty Internal Il yoni Referred Organization [facility] Referred Address [address], [place],[address] Referred Provider Specialty Pain Medicin e Referral Priority Routine General Notes Patient has hx of ce rvical discectomy and fusion and presented w/ persistent neck pain, which radiated upwards causing a headache. She is being referred for treatment with the pain clinic. Clinical Notes Include [employer] Other Summary Purpose Family History No Family History Records FoundNo Family History Records FoundNo Family History Records FoundNo Family History Records FoundNo Family History Records Found Advance Directives No Advanced Directives Records FoundNo Advanced Directives Records FoundNo Advanced Directives Records FoundNo Advanced Directives Records FoundNo Advanced Directives Records Found Additional Source Comments INFORMATION SOURCE (unrecogn ized section and content) DATE CREATED AUTHOR 06/20/2018 [facility] DATE CREATED AUTHOR AUTHOR'S ORGANIZ ATION 07/04/2018 [facility] DATE CREATED AUTHOR AUTHOR'S ORGANIZ ATION 09/18/2020 [facility] DATE CREATED AUTHOR AUTHOR'S ORGANIZ ATION 08/27/2022 [facility] DATE CREATED AUTHOR AUTHOR'S ORGANIZ ATION 07/01/2023 [facility] REASON FOR VISIT (unrecogniz ed [...] BE BASED ON THE PRIMARY CLINICAL RECORDS. [employer] [facility]. provides no warranty or guarantee of the accuracy or completeness of information in this document.
--- NOTE | 2023-07-06 11:45 | PM.CN ---
Consult Note: HPI Data of Consult Patient: known to practice within the last 3 years Consult date: 05/23/23 Requesting Physician: Selina Presley NP Primary Care Provider: Robert Cruz DO Consult Narrative Reason for consult: Neck, bilateral posterior occipital pain Narrative: 63yof who presents for assessment. Persistent pain that radiates from bilateral posterior occiput to forehead. Imaging reviewed, which shows history of cervical fusion with facet arthropathy noted at C2-3, 3-4. Engaged in provider directed home exercises for >6 weeks, with minimal benefit. Has tried various medications for pain, with limited relief. Denies adverse med side effects. Patient recently underwent bilateral C2/3 C3/4 facet medial branch block #1 and #2 with >90% improvement in pain and functional ability immediately following and hours after the procedure. cc:: CC: Selina Presley NP Review of Systems ROS Status of ROS 10 or more systems reviewed and unremarkable except as noted in history and below Musculoskeletal Reports: neck pain Meds Home Medications and Allergies Home Medications Medication Instructions Recorded Confirmed Type atenolol 50 mg tablet 50 mg PO DAILY 09/28/22 06/27/23 History citalopram 40 mg tablet (Celexa) 40 mg PO DAILY 09/28/22 06/27/23 History clonazepam 0.5 mg tablet 0.5 mg PO .3 tabs 09/28/22 06/27/23 History glimepiride 4 mg tablet 4 mg PO DAILY 09/28/22 06/27/23 History levothyroxine 125 mcg tablet 125 mcg PO DAILY 09/28/22 06/27/23 History (Synthroid) metformin 500 mg tablet 500 mg PO BID 09/28/22 06/27/23 History pravastatin 40 mg tablet 40 mg PO DAILY 09/28/22 06/27/23 History tizanidine 4 mg tablet 4 mg PO BID PRN muscle spasticity 09/28/22 06/27/23 History clonazepam 1 mg tablet (Klonopin) 1.5 mg PO DAILY 05/18/23 06/27/23 History rizatriptan 10 mg tablet (Maxalt) 10 mg PO Q2H PRN migraine headache 05/18/23 06/27/23 History olmesartan 20 mg tablet mg 06/06/23 History Allergies Allergy/AdvReac Type Severity Reaction Status Date / Time calcium [From DHEA] Allergy Severe respirator Verified 06/06/23 06:52 arrest calcium carbonate [From DHEA] Allergy Severe respirator Verified 06/06/23 06:52 arrest prasterone (DHEA) [From DHEA] Allergy Severe respirator Verified 06/06/23 06:52 arrest hydromorphone [From Dilaudid] Allergy Intermediate Verified 06/06/23 06:52 iodine Allergy Intermediate Verified 06/06/23 06:52 latex Allergy Intermediate Verified 06/06/23 06:52 meperidine [From Demerol] Allergy Intermediate Verified 06/06/23 06:52 sumatriptan [From Imitrex] Allergy Intermediate Verified 06/06/23 06:52 Exam Narrative Exam Narrative: Psych-alert and oriented x 3.? Attentive and appropriate, constitutionally normal, displays normal mood and affect per situation.? There are no obvious deficits in memory, reasoning, or intellect.? Skin-no obvious rashes, bruising, or erythema noted to the patient's area of pain. Extremities-upper extremities are warm with minimal edema and palpable pulses. Cervical- tenderness to palpation noted in the cervical spine and paraspinal musculature.?Tenderness over the bilateral occipital groove. Pain is elicited with extension, and lateral rotation of the cervical spine.? Range of motion is slightly diminished due to pain. Facet loading maneuvers are positive bilaterally.? Coordination remains intact.? Gait remains non-antalgic. Constitutional Documenting provider has reviewed patient's vital signs: yes Common normals: no apparent distress, oriented x3, healthy appearing, alert and well nourished General appearance: cooperative [facility] Common normals: normocephalic, hearing grossly normal bilaterally and moist oral mucous membranes Head and scalp: normocephalic Eye Common normals: PERRL Pupil: PERRL Neck & C-Spine Common normals: full ROM General: normal visual inspection Chest Common normals: inspection of chest normal Respiratory Common normals: normal respiratory effort, no retractions and no use of accessory muscles Neuro Common normals: oriented x3, CN's II-XII intact bilaterally, moves all extremities, no focal motor deficits, no sensory deficits noted and deep tendon reflexes 2+ bilaterally Sensorium/orientation: alert Motor exam: strength 5/5 throughout and no movement abnormalities noted Psych Common normals: mental status grossly normal, thought process normal, cooperative, affect normal, speech normal and activity/motor behavior normal Speech: normal speech Thought process: normal thought process Results Additional Findings Additional findings: If on a controlled substance or opioids, I have checked an [place] report on this patient today and there are no aberrancies noted in the prescribing history.?? A drug screen was completed and reviewed within the last year, and if there has not been a drug screen completed we ordered one today to monitor higher risk, state monitored pain medication use. As part of providing excellent, safe, comprehensive care, the following was completed at our patient's visit: Reviewed patients? medication reconciliation. An annual review has been completed for the following: screening for depression, screening for tobacco use, and screening for unhealthy alcohol use. For concerning screenings had a discussion with the patient, provided patient education, and recommended follow-up with primary care provider when appropriate. If patient noted with a risk of falling, they received education on strength, gait, and balance training to prevent future risk of falling. Assessment and Plan Assessment and Plan (1) Cervical spondylosis: Assessment and Plan: The patient has had over 3 months of moderate to severe neck pain with functional impairment and inadequate response to conservative care including NSAIDS (unless there are contraindication such as concurrent blood thinners), multiple oral or topical pain medications, and home exercise program/physical therapy.? Patient has completed >6 weeks of guided home exercise program and/or formal physical therapy program without relief of their symptoms.? I have reviewed the imaging of the cervical spine and no red flags were identified.? The imaging reveals radiographic findings consistent with cervical spondylosis We discussed the risks and benefits of the procedure with the patient, and we are NOT planning on using sedation as outlined in the guidelines from Medicare unless there is a documented reason that sedation would be strongly recommended.?? ?The procedure will be completed with fluoroscopic guidance.? (2) Cervical postlaminectomy syndrome: (3) Myofascial pain syndrome, cervical: (4) Bilateral occipital neuralgia: (5) Migraines: Plan left and right C2-3 C3-4 thermal RFA with 5mg PO Valium prior to procedure continue current medications continue HEP as tolerated f/u 1 month after completion of RFAs
== END 2023-07-06 11:07 | disposition home or self-care (01) ==
PROVIDERS: PCP Internal Medicine; Visit Provider Nurse Practitioner
DX: M47.812 Spondylosis without myelopathy or radiculopathy, cervical region (principal); M96.1 Postlaminectomy syndrome, not elsewhere classified; M79.18 Myalgia, other site; M54.81 Occipital neuralgia; G43.909 Migraine, unspecified, not intractable, without status migrainosus
CPT/HCPCS: G0463

== ENCOUNTER 2023-08-08 06:35 | Day surgery (SDC) | payer BC, SELFPAY ==
--- OUTSIDE RECORDS SUMMARY | 2023-08-08 06:38 | XMS_ITS | CCD ---
Author Organization [facility] Care Team Providers Care Chemical Packager Name Role Phone REECE LENTZIC New Admitting Unavailable SUN JENNA New Attending Unavailable LISANDRO BLAKE Consulting Unavailable SUN JENNA New Referring Unavailable Robert Cruz Unavailable HAMILTON, DR [...] Primary Care Unavailable YESSENIA WATSON Attending Unavailable WLATER, YESSENIA Consulting Unavailable YESSENIA WATSON Admitting Unavailable LUCINAY ., DR MAZARIEGOS Attending Unavailable HOY ., [...] to drug (disorder) 09-30-19 11 [facility] Repository (2 sources) HYDROmorphone; Translations: [HYDROMORPHONE (BULK)] Drug Allergy 08-17-19 17 [facility] Repository (20 sources) Latex; Translations: [LATEX] Propensity to adverse reactions to drug (disorder) 09-30-19 11 Unknown [facility] Repository (2 sources) Meperidine; Translations: [MEPERIDINE (PF)] Drug Allergy 09-30-19 11 [facility] Repository (2 sources) Povidone-Iodine; Translations: [POVIDONE-IODINE] Drug Allergy 10-21-19 17 [facility] Repository (2 sources) SUMAtriptan; Translations: [SUMATRIPTAN SUCCINATE] Drug Allergy 09-30-19 11 [facility] Repository (2 sources) INFLUENZA VACCINE TRI-SP 09-10; Translations: [INFLUENZA VACCINE TRI-SP 09-10] Propensity to adverse reactions to drug (disorder) 09-30-19 11 [facility] Repository (3 sources) DHE; Translations: [DHE] Propensity to adverse reactions to drug (disorder) 10-24-19 13 [facility] Repository (17 sources) HYDROmorphone Drug Allergy Unknown [facility] Other (18 sources) Iodine; Translations: [iodine] Drug Allergy 10-24-19 13 Unknown [facility] Repository (17 sources) Meperidine Drug Allergy Unknown [facility] Other (17 sources) SUMAtriptan Drug Allergy Unknown [facility] Other (17 sources) Fluad Drug allergy Unknown [facility] Other (17 sources) DHEA Drug allergy Unknown [facility] Other (1 source) HYDROmorphone Drug Allergy 10-24-19 13 [facility] Repository (1 source) Meperidine Drug Allergy 10-24-19 13 [facility] Repository (1 source) Plasmin Drug Allergy 10-24-19 13 [facility] Repository (12 sources) influenza A virus (H1N1) antigen / influenza A virus (H3N2) antigen / influenza B virus antigen Drug Allergy 11-21-19 14 Comment:FLU VACCINE [facility] Other (12 sources) Contraindication to Flu Injection Propensity to adverse reactions 03-07-20 14 Comment:advers e rxn/side effects [facility] Other (3 sources) patient allergy list reviewed by nurse or physicia Propensity to adverse reactions 12-22-19 14 Comment:Done [facility] Other Medications Current Medications Medication Drug Class(es) [...] every two hours as needed for headache Maxalt-PIER HAND 10 MG 1 tablet Orally PRN headache, [...] Date: 2022-08-24 07:19 Normal [facility] CBC AUTO DIFFon 03-30-2022 BASO # 0.0 103/ul Normal 0.0-0.1 [facility] Comment on above: Performed By: #### C BC #### [facility] [address] [address] [address] Rc Foster Basophils/100 WBC (Bld) 0.4 % Normal 0.2-2.0 [facility] Comment on above: Performed By: #### C BC #### [facility] [address] [address] [address] Rc Foster EO # 0.3 103/ul Normal 0.0-0.7 [facility] Comment on above: Performed By: #### C BC #### [facility] [address] [address] [address] Rc Foster Eosinophils/100 WBC (Bld) 4.9 % Normal 0.9-7.0 [facility] Comment on above: Performed By: #### C BC #### [facility] [address] [address] [address] Rc Foster Erythrocyte distribution width (RBC) [Ratio] 12.2 % Normal 11.0-15.0 [facility] Comment on above: Performed By: #### C BC #### [facility] [address] [address] [address] Rc Foster Hematocrit (Bld) [Volume fraction] 39.8 % Normal 36.0-48.0 [facility] Comment on above: Performed By: #### C BC #### [facility] [address] [place] [address] Dr. Rc Foster Hemoglobin (Bld) [Mass/Vol] 13.1 g/dL Normal 12.0-16.0 [facility] Comment on above: Performed By: #### C BC #### [facility] [address] [place] [address] Dr. Rc Foster IG # 0.02 10e3/ul Normal 0.00-0.03 [facility] Comment on above: Performed By: #### C BC #### [facility] [address] [place] [address] Dr. Rc Foster IG % 0.4 % Normal 0.0-0.5 [facility] Comment on above: Performed By: #### C BC #### [facility] [address] [place] [address] Dr. Rc Foster LYMPH # 2.1 103/ul Normal 1.2-3.8 [facility] Comment on above: Performed By: #### C BC #### [facility] [address] [place] [address] Dr. Rc Foster Lymphocytes/100 WBC (Bld) 37.1 % Normal 20.5-60.0 [facility] Comment on above: Performed By: #### C BC #### [facility] [address] [place] [address] Dr. Rc Foster MANUAL DIFF REQ NO Normal [facility] Comment on above: Performed By: #### C BC #### [facility] [address] [place] [address] Dr. Rc Foster MCH (RBC) [Entitic mass] 28.7 pg Normal 26.7-34.0 [facility] Comment on above: Performed By: #### C BC #### [facility] [address] [place] [address] Dr. Rc Foster MCHC (RBC) [Mass/Vol] 32.9 g/dL Normal 29.9-35.2 [facility] Comment on above: Performed By: #### C BC #### [facility] [address] [place] [address] Dr. Rc Foster MCV (RBC) [Entitic vol] 87.1 fL Normal 81.0-99.0 [facility] Comment on above: Performed By: #### C BC #### [facility] [address] [place] [address] Dr. Rc Foster MONO # 0.4 103/ul Normal 0.3-0.8 [facility] Comment on above: Performed By: #### C BC #### [facility] [address] [place] [address] Dr. Rc Foster Monocytes/100 WBC (Bld) 6.7 % Normal 1.7-12.0 [facility] Comment on above: Performed By: #### C BC #### [facility] [address] [place] [address] Dr. Rc Foster NEUT # 2.9 103/ul Normal 1.4-6.5 [facility] Comment on above: Performed By: #### C BC #### [facility] [address] [place] [address] Dr. Rc Foster Neutrophils/100 WBC (Bld) 50.5 % Normal 43.0-75.0 [facility] Comment on above: Performed By: #### C BC #### [facility] [address] [place] [address] Dr. Rc Foster Platelet mean volume (Bld) [Entitic vol] 9.7 fL Normal 9.5-13.5 [facility] Comment on above: Performed By: #### C BC #### [facility] [address] [place] [address] Dr. Rc Foster PLT 189 103/ul Normal 150-450 [facility] Comment on above: Performed By: #### C BC #### [facility] [address] [place] [address] Dr. Rc Foster RBC 4.57 106/ul Normal 4.20-5.40 [facility] Comment on above: Performed By: #### C BC #### [facility] [address] [place] [address] Dr. Rc Foster WBC 5.7 103/ul Normal 4.0-11.0 [facility] Comment on above: Performed By: #### C BC #### [facility] [address] [place] [address] Dr. Rc Foster GLYCOHEMOGLOBIN A1Con 2021 ADA RECOMMENDATION SEE BELOW Normal [facility] Comment on above: Result Comment: ADA RECOMMENDED LIMIT 4.0 - 6.0 ADA THERAPEUTIC TARGET < 7.0 ACTION SUGGESTED > 7.0 Performed By: #### A 1C #### [facility] [address] [address] [address] Rc Foster Glucose [Mass/Vol] 143 mg/dL Normal [facility] Comment on above: Performed By: #### A 1C #### [facility] [address] [address] [address] Rc Foster HbA1c (Bld) [Mass fraction] 6.6 % Critically high 4.5-6.2 [facility] Comment on above: Performed By: #### A 1C #### [facility] [address] [address] [address] Rc Foster LIPID PROFILEon 03-30-2022 CHOL-HDL RATIO NORM SEE BELOW Normal [facility] Comment on above: Result Comment: 3.3 - 4.4 LOW RISK 4.4 - 7.1 AVERAGE RISK 7.1 - 11.0 MODERATE RISK >11.0 HIGH RISK Performed By: #### T SH, CMP, LIPID ####[facility] [address] [place], [place] [address]Fz. Rc Foster Cholesterol [Mass/Vol] 184 mg/dL Normal <=200 [facility] Comment on above: Performed By: #### T SH, CMP, LIPID ####[facility] [address] [place], [place] [address]Ai. Rc Foster Cholesterol in HDL [Mass/Vol] 42 mg/dL Normal 40-60 [facility] Comment on above: Performed By: #### T SH, CMP, LIPID ####[facility] [address] [place], [place] [address]Ed. Rc Foster Cholesterol in LDL [Mass/Vol] 87.0 mg/dL Normal [facility] Comment on above: Performed By: #### T SH, CMP, LIPID ####[facility] [address] [place], [place] [address]Ss. Rc Foster Cholesterol.total/Chol esterol in HDL [Mass ratio] 4.4 {ratio} Normal [facility] Comment on above: Performed By: #### T SH, CMP, LIPID ####[facility] [address] [address]Dr. Rc Foster HDL NORMAL > or = 60 mg/dl - LO W CARDIOVASCULAR RISK <40 mg/dl - HIGH CARDIOVASCULAR RISK Normal [facility] Comment on above: Performed By: #### T SH, CMP, LIPID ####[facility] [address] [address]Dr. Rc Foster LDL CALC NORMAL SEE BELOW Normal [facility] Comment on above: Result Comment: <100 mg/dl OPTIMAL 100 - 129 mg/dl NEAR OR ABOVE OPTIMAL 130 - 159 mg/dl BORDERLINE HIGH 160 - 189 mg/dl HIGH >190 mg/dl VERY HIGH Performed By: #### T MAYR JANE, CMP, LIPID ####[facility] [address] [address]Dr. Rc Foster Triglyceride [Mass/Vol] 275 mg/dL Critically high <=150 [facility] Comment on above: Performed By: #### T MARY JANE, CMP, LIPID ####[facility] [address] [address]Dr. Rc Foster VLDL CALC 55.0 mg/dL Normal [facility] Comment on above: Performed By: #### T MARY JANE, CMP, LIPID ####[facility] [address] [address]Dr. Rc Foster PROF 14(COMP METB)on 022 Albumin [Mass/Vol] 4.0 g/dL Normal 3.4-5.0 [facility] Comment on above: Performed By: #### T MARY JANE, CMP, LIPID ####[facility] [address] [address]Dr. Rc Foster Albumin/Globulin [Mass ratio] 1.1 {ratio} Normal [facility] Comment on above: Performed By: #### T SH, CMP, LIPID ####[facility] [address] [address]Dr. Rc Foster ALP [Catalytic activity/Vol] 71 U/L Normal 46-116 [facility] Comment on above: Performed By: #### T SH, CMP, LIPID ####[facility] [address] [id number]. Rc Foster ALT [Catalytic activity/Vol] 29 U/L Normal 14-59 [facility] Comment on above: Performed By: #### T SH, CMP, LIPID ####[facility] [address] [id number]. Rc Foster Anion gap [Moles/Vol] 13.2 mmol/L Normal [facility] Comment on above: Performed By: #### T SH, CMP, LIPID ####[facility] [address] [address]Dr. Rc Foster AST [Catalytic activity/Vol] 17 U/L Normal 15-37 [facility] Comment on above: Performed By: #### T SH, CMP, LIPID ####[facility] [address] [address]Dr. Rc Foster Bilirubin [Mass/Vol] 0.6 mg/dL Normal 0.2-1.0 [facility] Comment on above: Performed By: #### T SH, CMP, LIPID ####[facility] [address] [address]Dr. Rc Foster Calcium [Mass/Vol] 9.0 mg/dL Normal 8.5-10.1 [facility] Comment on above: Performed By: #### T SH, CMP, LIPID ####[facility] [address] [address]Dr. Rc Foster Chloride [Moles/Vol] 102 mmol/L Normal 98-107 [facility] Comment on above: Performed By: #### T SH, CMP, LIPID ####[facility] [address] [address]Dr. Rc Foster CO2 [Moles/Vol] 27.3 mmol/L Normal 21.0-32.0 [facility] Comment on above: Performed By: #### T SH, CMP, LIPID ####[facility] [address] [address]Dr. Rc Foster Creatinine [Mass/Vol] 1.00 mg/dL Normal 0.55-1.02 [facility] Comment on above: Performed By: #### T SH, CMP, LIPID ####[facility] [address] [address]Dr. Rc Foster EGFR-AF VINCENTIAN >60 Normal >=60 [facility] Comment on above: Performed By: #### T SH, CMP, LIPID ####[facility] [address] [address]Dr. Rc Foster EGFR-NON AF VINCENTIAN 56 mL/min/1.73m2 Critically low >=60 [facility] Comment on above: Performed By: #### T SH, CMP, LIPID ####[facility] [address] [address]Dr. Rc Foster Globulin (S) [Mass/Vol] 3.5 g/dL Normal [facility] Comment on above: Performed By: #### T SH, CMP, LIPID ####[facility] [address] [address]Dr. Rc Foster Glucose [Mass/Vol] 159 mg/dL Critically high 74-106 [facility] Comment on above: Performed By: #### T SH, CMP, LIPID ####[facility] [address] [address]Dr. Rc Foster Potassium [Moles/Vol] 4.5 mmol/L Normal 3.5-5.1 [facility] Comment on above: Performed By: #### T SH, CMP, LIPID ####[facility] [address] [address]Dr. Rc Foster Protein [Mass/Vol] 7.5 g/dL Normal 6.4-8.[address] [facility] Comment on above: Performed By: #### T SH, CMP, LIPID ####[facility] [address] [address]Dr. Rc Foster Sodium [Moles/Vol] 138 mmol/L Normal 136-145 [facility] Comment on above: Performed By: #### T SH, CMP, LIPID ####[facility] [address] [place], [place] [address]Kb. Rc Foster Urea nitrogen [Mass/Vol] 23.0 mg/dL Critically high 7.0-18.0 [facility] Comment on above: Performed By: #### T MARY JANE, CMP, LIPID ####[facility] [address] [place], [place] [address]Rt. Rc Foster Urea nitrogen/Creatinine [Mass ratio] 23.0 mg/mg Normal [facility] Comment on above: Performed By: #### T MARY JANE, CMP, LIPID ####[facility] [address] [place], [place] [address]Yi. Rc Foster TSHon 03-30-2022 TSH 2.807 uIU/mL Normal 0.358-3.740 [facility] Comment on above: Performed By: #### T MARY JANE, CMP, LIPID ####[facility] [address] [place], [place] [address]Zp. Rc Foster US THYROIDon 03-30-2022 US THYROID [...] Date: 2022-03-30 11:03 Normal [facility] MG MAMM SCREEN 3D LEX CADon 03-19-2022 MG MAMM SCREEN 3D LEX CAD Patient: CARROLL HARDEN Exam Date: 03/19/2022 : 1960 Gender:F Ordering : DR ROBERT CRUZ D.O. Admission #: [id number] Family : Order #: [id number] CLICK HERE TO VIEW EXAM RADIOLOGY REPORT [...] Family Cancers None LOCATION: [facility] BREAST COMPOSITION: Scattered areas fibroglandular density. [...] 03/23/2022 at 11:59 Normal [facility] CBC AUTO DIFFon 11-27-2021 BASO # 0.0 103/ul Normal 0.0-0.1 [facility] Comment on above: Performed By: #### C BC #### [facility] [address] [address] [address] Rc Foster Basophils/100 WBC (Bld) 0.7 % Normal 0.2-2.0 [facility] Comment on above: Performed By: #### C BC #### [facility] [address] [id number] Rc Foster EO # 0.6 103/ul Normal 0.0-0.7 [facility] Comment on above: Performed By: #### C BC #### [facility] [address] [place] [address] Dr. Rc Foster Eosinophils/100 WBC (Bld) 10.3 % Critically high 0.9-7.0 [facility] Comment on above: Performed By: #### C BC #### [facility] [address] [place] [address] Dr. Rc Foster Erythrocyte distribution width (RBC) [Ratio] 12.4 % Normal 11.0-15.0 [facility] Comment on above: Performed By: #### C BC #### [facility] [address] [place] [address] Dr. Rc Foster Hematocrit (Bld) [Volume fraction] 41.2 % Normal 36.0-48.0 [facility] Comment on above: Performed By: #### C BC #### [facility] [address] [place] [address] Dr. Rc Foster Hemoglobin (Bld) [Mass/Vol] 13.4 g/dL Normal 12.0-16.0 [facility] Comment on above: Performed By: #### C BC #### [facility] [address] [place] [address] Dr. Rc Foster IG # 0.01 10e3/ul Normal 0.00-0.03 [facility] Comment on above: Performed By: #### C BC #### [facility] [address] [place] [address] Dr. Rc Foster IG % 0.2 % Normal 0.0-0.5 [facility] Comment on above: Performed By: #### C BC #### [facility] [address] [place] [address] Dr. Rc Foster LYMPH # 2.3 103/ul Normal 1.2-3.8 [facility] Comment on above: Performed By: #### C BC #### [facility] [address] [place] [address] Dr. Rc Foster Lymphocytes/100 WBC (Bld) 40.6 % Normal 20.5-60.0 [facility] Comment on above: Performed By: #### C BC #### [facility] [address] [place] [address] Dr. Rc Foster MANUAL DIFF REQ NO Normal [facility] Comment on above: Performed By: #### C BC #### [facility] [address] [place] [address] Dr. Rc Foster MCH (RBC) [Entitic mass] 28.8 pg Normal 26.7-34.0 [facility] Comment on above: Performed By: #### C BC #### [facility] [address] [place] [address] Dr. Rc Foster MCHC (RBC) [Mass/Vol] 32.5 g/dL Normal 29.9-35.2 [facility] Comment on above: Performed By: #### C BC #### [facility] [address] [place] [address] Dr. Rc Foster MCV (RBC) [Entitic vol] 88.6 fL Normal 81.0-99.0 [facility] Comment on above: Performed By: #### C BC #### [facility] [address] [place] [address] Dr. Rc Foster MONO # 0.4 103/ul Normal 0.3-0.8 [facility] Comment on above: Performed By: #### C BC #### [facility] [address] [place] [address] Dr. Rc Foster Monocytes/100 WBC (Bld) 7.6 % Normal 1.7-12.0 [facility] Comment on above: Performed By: #### C BC #### [facility] [address] [place] [address] Dr. Rc Foster NEUT # 2.3 103/ul Normal 1.4-6.5 [facility] Comment on above: Performed By: #### C BC #### [facility] [address] [place] [address] Dr. Rc Foster Neutrophils/100 WBC (Bld) 40.6 % Critically low 43.0-75.0 [facility] Comment on above: Performed By: #### C BC #### [facility] [address] [address] [address] Rc Foster Platelet mean volume (Bld) [Entitic vol] 9.6 fL Normal 9.5-13.5 [facility] Comment on above: Performed By: #### C BC #### [facility] [address] [place] [address] Dr. Rc Foster PLT 194 103/ul Normal 150-450 [facility] Comment on above: Performed By: #### C BC #### [facility] [address] [address] [address] Rc Foster RBC 4.65 106/ul Normal 4.20-5.40 [facility] Comment on above: Performed By: #### C BC #### [facility] [address] [place] [address] Dr. Rc Foster WBC 5.5 103/ul Normal 4.0-11.0 [facility] Comment on above: Performed By: #### C BC #### [facility] [address] [place] [address] Dr. Rc Foster GLYCOHEMOGLOBIN A1Con 2021 ADA RECOMMENDATION SEE BELOW Normal [facility] Comment on above: Result Comment: ADA RECOMMENDED LIMIT 4.0 - 6.0 ADA THERAPEUTIC TARGET < 7.0 ACTION SUGGESTED > 7.0 Performed By: #### A 1C #### [facility] [address] [place] [address] Dr. Rc Foster Glucose [Mass/Vol] 131 mg/dL Normal [facility] Comment on above: Performed By: #### A 1C #### [facility] [address] [place] [address] Dr. Rc Foster HbA1c (Bld) [Mass fraction] 6.2 % Normal 4.5-6.2 [facility] Comment on above: Performed By: #### A 1C #### [facility] [address] [place] [address] Dr. Rc Foster PROF CHEM 8 (BAS METB)on Anion gap [Moles/Vol] 15.2 mmol/L Normal Th [facility] Comment on above: Performed By: #### T SH, BMP #### [facility] [address] [address] [address] Rc Foster Calcium [Mass/Vol] 8.5 mg/dL Normal 8.5-10.1 [facility] Comment on above: Performed By: #### T SH, BMP #### [facility] [address] [address] [address] Rc Foster Chloride [Moles/Vol] 100 mmol/L Normal 98-107 [facility] Comment on above: Performed By: #### T SH, BMP #### [facility] [address] [place] [address] Dr. Rc Foster CO2 [Moles/Vol] 26.6 mmol/L Normal 21.0-32.0 [facility] Comment on above: Performed By: #### T SH, BMP #### [facility] [address] [place] [address] Dr. Rc Foster Creatinine [Mass/Vol] 1.15 mg/dL Critically high 0.55-1.02 [facility] Comment on above: Performed By: #### T SH, BMP #### [facility] [address] [place] [address] Dr. Rc Foster EGFR-AF VINCENTIAN 58 mL/min/1.73m2 Critically low >=60 [facility] Comment on above: Performed By: #### T SH, BMP #### [facility] [address] [place] [address] Dr. Rc Foster EGFR-NON AF VINCENTIAN 48 mL/min/1.73m2 Critically low >=60 [facility] Comment on above: Performed By: #### T SH, BMP #### [facility] [address] [place] [address] Dr. Rc Foster Glucose [Mass/Vol] 211 mg/dL Critically high 74-106 [facility] Comment on above: Performed By: #### T SH, BMP #### [facility] [address] [place] [address] Dr. Rc Foster Potassium [Moles/Vol] 4.8 mmol/L Normal 3.5-5.1 [facility] Comment on above: Performed By: #### T SH, BMP #### [facility] [address] [place] [address] Dr. Rc Foster Sodium [Moles/Vol] 137 mmol/L Normal 136-[address] [facility] [address] [facility] Comment on above: Performed By: #### T SH, BMP #### [facility] [address] [place] [address] Dr. Rc Foster Urea nitrogen [Mass/Vol] 33.0 mg/dL Critically high 7.0-18.0 [facility] Comment on above: Performed By: #### T SH, BMP #### [facility] [address] [place] [address] Dr. Rc Foster Urea nitrogen/Creatinine [Mass ratio] 28.7 mg/mg Normal [facility] Comment on above: Performed By: #### T SH, BMP #### [facility] [address] [place] [address] Dr. Rc Foster TSHon 11-27-2021 TSH 0.744 uIU/mL Normal 0.358-3.740 [facility] Comment on above: Performed By: #### T SH, BMP #### [facility] [address] [place] [address] Dr. Rc Foster SYMPTOMATIC COVID-19 ANTIGEN on 10-28-2021 EUA Statement SEE BELOW Normal [facility] Comment on above: Result Comment: This [...] Performed By: #### C VDAGS ####[facility] [address] [place], [place] [address]JvDr. Rc Fotser SARS-CoV-2 (COVID-19) RNA YARED+probe Ql (Unsp spec) Negative Normal NEGATIVE [facility] Comment on above: Performed By: #### C VDAGS ####[facility] [address] [place] [id number]. Rc Foster GLYCOHEMOGLOBIN A1Con 2021 ADA RECOMMENDATION SEE BELOW Normal [facility] Comment on above: Result Comment: ADA RECOMMENDED LIMIT 4.0 - 6.0 ADA THERAPEUTIC TARGET < 7.0 ACTION SUGGESTED > 7.0 Performed By: #### A 1C #### [facility] [address] [place] [address] [address] Rc Foster Glucose [Mass/Vol] 128 mg/dL Normal [facility] Comment on above: Performed By: #### A 1C #### [facility] [address] [address] [address] Rc Foster HbA1c (Bld) [Mass fraction] 6.1 % Normal 4.5-6.2 [facility] Comment on above: Performed By: #### A 1C #### [facility] [address] [address] [address] Rc Foster Discharge CCD Assessmenton 0 09-06-2020 Discharge CCD Assessment [facility] Patient: CARROLL HARDEN [address] [place] [address] MR#: [id number] DISCHARGE CCD ASSESSMENT : 58 Service Date: 09/06/20 1018 Discharge CCD Assessment Assessment Patient discharged home to continue exercises, pain medication, and wound care Electronically Signed eSign Date and Time Melyssa Flores 09/06/20 1019 Tera Hernandez MD Normal [facility] GLUCOSE METERon 09-06-2020 Glucose [Mass/Vol] 126 mg/dL High 70-99 [facility] Comment on above: Order Comment: CONSE RVATION Result Comment: Fast ing GLUCOSE reference range has been updated per (ADA) [place] Diabetes Association's recommendation. 07/18/2018 Performed By: #### L 500.69637 ####Test performed at: [place] [address] Glucose [Mass/Vol] 205 mg/dL High 70-99 [facility] Comment on above: Order Comment: CONSE RVATION Result Comment: Fast ing GLUCOSE reference range has been updated per (ADA) [place] Diabetes Association's recommendation. 07/18/2018 Insulin per sl scale Performed By: #### L 500.50992 #### Test performed at: [place] [address] Internal Med Progress Noteon 09-06-2020 Internal Med Progress Note [facility] Patient: CARROLL HARDEN [address] [place] [address] MR#: [id number] PROGRESS NOTE - Internal Medicine : 58 [...] RES, Katarzy na MD 09/06/20 1134 Normal [facility] Orthopedic Progress Noteon 0 09-06-2020 Orthopedic Progress Note [facility] Patient: CARROLL HARDEN [address] [place] [address] MR#: [id number] PROGRESS NOTE - Orthopedic : 58 Service [...] RN 09/06/20 1022 Tera Hernandez MD Normal [facility] Anesthesia Noteon 09-05-2020 Anesthesia Note [facility] Patient: CARROLL HARDEN [address] [place] [address] MR#: [id number] ANESTHESIA NOTE : Service Date: 09/05/20 08 Post-anesthesia Note Note Patient assessed post operatively [...] pre-op Electronically Signed eSign Date and Time 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 09/05/20 0813 Chu Glez MD Normal [facility] BASIC MET PANELon 09-05-2020 Anion gap [Moles/Vol] 12 mmol/L Normal 6-18 [facility] Comment on above: Performed By: #### L 500.70645, L500.93152 #### Test performed at: [address] [address] Calcium [Mass/Vol] 8.7 mg/dL Normal 8.5-10.1 [facility] Comment on above: Performed By: #### L 500.55555, L500.71340 #### Test performed at: [address] [address] Chloride [Moles/Vol] 101 mmol/L Normal 98-107 [facility] Comment on above: Performed By: #### L 500.16757, L500.70061 #### Test performed at: [address] [address] CO2 [Moles/Vol] 25 mmol/L Normal 21-32 [facility] Comment on above: Performed By: #### L 500.38337, L500.24674 #### Test performed at: [address] [address] Creatinine [Mass/Vol] 1.020 mg/dL Normal 0.550-1.020 [facility] Comment on above: Performed By: #### L 500.16298, L500.90083 #### Test performed at: [address] [address] Glucose [Mass/Vol] 264 mg/dL High 70-99 [facility] Comment on above: Result Comment: Fast ing GLUCOSE reference range has been updated per (ADA) [place] Diabetes Association's recommendation. 07/18/2018 Performed By: #### L 500.09704, L500.11373 #### Test performed at: [address] [address] OSM 289 mosm/kg Normal 270-300 [facility] Comment on above: Performed By: #### L 500.65206, L500.54310 #### Test performed at: [address] [address] Potassium [Moles/Vol] 4.5 mmol/L Normal 3.5-5.1 [facility] Comment on above: Performed By: #### L 500.43639, L500.31610 #### Test performed at: [address] [address] Sodium [Moles/Vol] 134 mmol/L Low 136-145 [facility] Comment on above: Performed By: #### L 500.29080, L500.62250 #### Test performed at: [address] [address] Urea nitrogen [Mass/Vol] 17 mg/dL Normal 7-18 [facility] Comment on above: Performed By: #### L 500.36783, L500.47225 #### Test performed at: [address] [address] GFR ESTIMATEon 09-05-2020 IF AMER > 60 Normal > 60 [facility] Comment on above: Result Comment: eGFR (Estimated GFR) Units of measure:mL/min/1.73 meters sq. *CALCULATION REVISED 02/11/2015;IDMS-traceable MDRD equation eGFR is derived from the reexpressed MDRD Study equation using the following parameters: serum creatinine, age, gender and race. An eGFR<60 mL/min/1.73m2 for >3 months is consistent with chronic kidney disease. Refer to KDOQI guidelines for clinical interpretation. Performed By: #### L 500.65539, L500.22917 #### Test performed at: [place] [address] [place] [address] IF non-AFR AMER 55 Low > 60 [facility] Comment on above: Performed By: #### L 500.36052, L500.55962 #### Test performed at: [place] [address] [place] [address] GLUCOSE METERon 09-05-2020 Glucose [Mass/Vol] 177 mg/dL High 70-99 [facility] Comment on above: Order Comment: CONSE RVATION Result Comment: Fast ing GLUCOSE reference range has been updated per (ADA) [place] Diabetes Association's recommendation. 07/18/2018 Performed By: #### L 500.72198 #### Test performed at: [address] [address] Glucose [Mass/Vol] 310 mg/dL High 70-99 [facility] Comment on above: Result Comment: Fast ing GLUCOSE reference range has been updated per (ADA) [place] Diabetes Association's recommendation. 07/18/2018 Insulin per scale Performed By: #### L 500.52147 ####Test performed at: [address] [address] Glucose [Mass/Vol] 281 mg/dL High 70-99 [facility] Comment on above: Result Comment: Fast ing GLUCOSE reference range has been updated per (ADA) [place] Diabetes Association's recommendation. 07/18/2018 Insulin per sl scale Performed By: #### L 500.39472 #### Test performed at: [place] [address] [place] [address] Glucose [Mass/Vol] 105 mg/dL High 70-99 [facility] Comment on above: Result Comment: Fast ing GLUCOSE reference range has been updated per (ADA) [place] Diabetes Association's recommendation. 07/18/2018 Performed By: #### L 500.66483 #### Test performed at: [address] [address] HGB AND HCTon 09-05-2020 Hematocrit (Bld) [Volume fraction] 37.5 % Normal 36.0-48.0 [facility] Comment on above: Performed By: #### L 200.32437 #### Test performed at: [place] [address] Hemoglobin (Bld) [Mass/Vol] 12.5 g/dL Normal 12.0-15.0 [facility] Comment on above: Performed By: #### L 200.00570 #### Test performed at: [place] [address] Internal Med Progress Noteon 09-05-2020 Internal Med Progress Note [facility] Patient: CARROLL HARDEN [address] [place] [address] MR#: [id number] PROGRESS NOTE - Internal Medicine : 58 [...] input. Disc (more content not included)... Normal [facility] OT Therapy Recommendationson 09-05-2020 OT Therapy Recommendations [facility] Patient: CARROLL HARDEN [address] [place] [address] MR#: [id number] OT THERAPY RECOMMENDATIONS : 58 Service Date: 09/05/20 1511 Therapy Recommendations Therapy Recommendations Recommendations OT evaluation completed. OT recommends HOME with FAmily assist. No further acute OT needs are indicated at this time. Electronically Signed eSign Date and Time BobPadmaTrupti OT 09/05/20 1512 Normal [facility] Orthopedic Progress Noteon 0 09-05-2020 Orthopedic Progress Note [facility] Patient: CARROLL HARDEN [address] [place] [address] MR#: [id number] PROGRESS NOTE - Orthopedic : 58 Service [...] eSign Date and Time RUBEN KHAN 09/05/20 1421 Tera Hernandez MD Normal [facility] PT Therapy Recommendationson 09-05-2020 PT Therapy Recommendations [facility] Patient: CARROLL HARDEN [address] [place], [place] [id number] MR#: [id number] PT THERAPY RECOMMENDATIONS : 58 Service Date: 09/05/20 0914 Therapy Recommendations Therapy Recommendations Recommendations PT eval complete. No further acute PT needs. Recommend d/c home /c family assist. Electronically Signed eSign Date and Time Tiffanie Bashir PT 09/05/20 0914 Normal [facility] z OT Inpatient Discharge Not juan 09-05-2020 z OT Inpatient Discharge Note [facility] Patient: CARROLL HARDEN [address] [place], [place] [id number] MR#: [id number] OT INPATIENT DISCHARGE NOTE : 58 Service [...] Time Trupti Rojas OT 09/05/20 1534 Normal [facility] z OT Inpatient Evaluationon 09-05-2020 z OT Inpatient Evaluation [facility] Patient: CARROLL HARDEN [address] [place], [place] [id number] MR#: [id number] OT INPATIENT EVALUATION : 58 Inpatient OT HPI Date of Service 09/05/20 Time In: 1401 Time Out: 1412 Total Treatment Time (Mins) 11 Visit Reason LATERAL RECESS STENOSIS W/ RADICULOPATHY Surgery Type/Date s/p L L4-5 LAmi, foraminotomy, decompression on 09.04.20/ Lumbar spine precautions Referral Date 09/04/20 Tx Diagnosis: LOW BACK PAIN Insurance Name [facility] POS O Hospital Course Pt is [...] 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 Objective Precautions [...] Excellent Nader (more content not included)... Normal [facility] z PT Inpatient Discharge Not juan 09-05-2020 z PT Inpatient Discharge Note [facility] Patient: CARROLL HARDEN [address] [place] [address] MR#: [id number] PT INPATIENT DISCHARGE NOTE : 58 Service [...] Time Tiffanie Bashir PT 09/05/20 1139 Normal [facility] z PT Inpatient Evaluationon 09-05-2020 z PT Inpatient Evaluation [facility] Patient: CARROLL HARDEN [address] [place] [address] MR#: [id number] PT INPATIENT EVALUATION : 58 Service Date: 09/05/20927 Inpatient PT HPI Date of Service 09/05/20 Time In: 0845 Time Out: 0907 Total Treatment Time (Mins) 22 Room Number 624 Visit Reason LATERAL RECESS STENOSIS W/ RADICULOPATHY Surgery Type: L L4-5 lami, foraminotomy, decompression Surgery Date: 09/04/20 Referral Date 09/04/20 Tx Diagnosis: LOW BACK PAIN Insurance Name [employer] O POS [facility] Hospital Course 60 y.o female at [facility] for above sx d/t lateral [...] functional tasks Outcome Measures AM-PAC Inpatient Mobility [facility] Inpatient Mobility Response Value Turn Back/Side While [...] posture. Improved stability noted /c single UE support/DIRECTOR DIGITAL CATALOGUE. Pt agreeable to use of her cane [...] Time Tiffanie Bashir PT 09/05/20 1502 Normal [facility] GLUCOSE METERon 09-04-2020 Glucose [Mass/Vol] 94 mg/dL Normal 70-99 [facility] Comment on above: Result Comment: Fast ing GLUCOSE reference range has been updated per (ADA) [place] Diabetes [employer]'s recommendation. 07/18/2018 Performed By: #### L 500.22474 ####Test performed at: [place] [address] Internal Medicine Consultati onon 09-04-2020 Internal Medicine Consultation [facility] Patient: CARROLL HARDEN [address] [place] [address] MR#: [id number] CONSULTATION - Internal Medicine : 58 Service Date: 09/04/20 1545 History of Present Illness Referring Physician Tera [...] Entered as Reported by JORDON MATHUR on 12/11/1819 Last Action: Reviewed on 09/04/201054 by LUZ [...] on 12/11/18 0921 Last Action: Reviewed on 09/04/201054 by LUZ [...] of Systems (more content not included)... Normal [facility] OPERATIVE REPORTon OPERATIVE REPORT NAME: CARROLL HARDEN MR#: [id number] SURGEON: Tera Hernandez MD DATE OF SURGERY: [...] there were no complications. TERA HERNANDEZ MD [facility] PT NAME: CARROLL HARDEN MR#: [id number] [address] [place] [address] ACCT: [id number] : 58 OPERATIVE REPORT JFS/MODL/[id number] E/S: Tera Hernandez MD 09/18/20 1207 Electronically Signed [facility] PT NAME: CARROLL HARDEN MR#: [id number] [address] [place], [place] [address] ACCT: [id number] : 58 OPERATIVE REPORT Normal [facility] Primary Residenton Primary Resident [facility] Pt Name: CARROLL HARDEN MR#: [id number] [address] [place] [address] ACCT: [id number] [place] [id number] : 58 Service Date: 09/04/20 1603 Primary Resident/Call Primary Resident: [id number] [address] After Hours Call: [phone] Red Team Electronically Signed eSign Date and Time Ana Flanagan RES 09/16/20 1521 Normal [facility] LUMBAR SPINE 2 OR 3 VIEWSon 09-03-2020 LUMBAR SPINE 2 OR 3 VIEWS STUDY: LUMBAR SPINE 2 OR 3 VIEWS; 09/04/2020 2:57 pm INDICATION: LEFT L4-L5 LAMINECTOMY,FORAMINOT JOSE ANGEL,DECOMPRESSION. COMPARISON: None. ACCESSION NUMBER(S): [id number] ORDERING CLINICIAN: Tera Hernandez FINDINGS: Intraoperative fluoroscopy of the lumbar spine demonstrates surgical instruments posterior to L5. IMPRESSION: As above Normal [facility] CHEST PA/AP & LATERALon CHEST PA/AP & LATERAL STUDY: CHEST PA/AP LATERAL; 08/25/2020 11:00 am INDICATION: SOB/PAT. COMPARISON: None. ACCESSION NUMBER(S): [id number] ORDERING CLINICIAN: Madelyn Leslie FINDINGS: The lungs are clear without pleural effusion. Normal heart size, mediastinum, elzbieta, and pulmonary vasculature. IMPRESSION: No active disease in the chest. Normal [facility] CONSULTATION REPORTon 2020 CONSULTATION REPORT NAME: CARROLL HARDEN MR#: [id number] HYDRO GENERATION MANAGER: Madelyn Leslie MD DATE OF CONSULTATION: [...] pulse ox is 98% on room air. [facility] PT NAME: CARROLL HARDEN MR#: [id number] [address] [place] [address] ACCT: [id number] : 58 CONSULTATION HEENT: Atraumatic head. Pupils [...] we are getting the results from her spudder in [place]. IMPRESSION: 1. Preop clearance for L4-L5 disk [...] courtesy of this consultation. MADELYN LESLIE MD MS/MODL/[id number] E/S: Madelyn Leslie MD 08/26/20 7470 Electronically Signed [facility] PT NAME: CARROLL HARDEN MR#: [id number] [address] [place] [address] ACCT: [id number] : 58 CONSULTATION Normal [facility] LUMB SP COMP W FLEX/EXT 6 VW S>on 08-08-2020 LUMB SP COMP W FLEX/EXT 6 VWS> STUDY: LUMB SP COMP W FLEX/EXT 6 VWS>; 08/08/2020 9:43 am INDICATION: BACK PAIN. COMPARISON: No available comparisons. ACCESSION NUMBER(S): [id number] ORDERING CLINICIAN: Tera Hernandez TECHNIQUE: 6 views [...] L5-S1 level. No evidence of instability.. Normal [facility] XR SHLDR >/=3V AP/RUSH AP/OTH R [...] Date/Time: Jul 03 2018 10:16A Dictated by: KEIVN MUNIZ MD This examination was interpreted and the report reviewed and electronically signed by: KEVIN MUNIZ MD on Jul 03 2018 10:17AM EST [id number] N [facility] ANES Holly 06-20-2018 ANES POST HNO ID: [id number] Author: Rohit Velarde Service: Anesthesiology Author Type: [...] 20, 2018 TIME: 2:38 PM PAGER/CONTACT #: [facility] ANES PREOPon 06-20-2018 ANES PREOP HNO ID: [id number] Author: Rohit Velarde Service: Anesthesiology Author Type: [...] June 20, 2018 TIME: 9:35 AM CSN: [id number] [facility] BRIEF OP NOTon 06-20-2018 BRIEF OP NOT HNO ID: [id number] Author: Kusum Francisco Service: Orthopaedic Surgery Author Type: Resident Type: Brief Op Note Filed: 06/20/2018 5:49 PM Note Text: BRIEF OP NOTE LOG ID: [id number] Surgery/Procedure Date: 06/20/2018 Incision/Procedure Start Time: 11:18 AM Incision Close/Procedure End Time: 1:17 PM Surgeon(s)/Procedural ist(s) and Tape Folding Machine Operator(s): Surgeon(s) and Role: * Jenna Lentz - [...] 20, 2018 TIME: 5:49 PM PAGER/CONTACT #: [facility] CASE MANAGEMon 06-20-2018 CASE MANAGEM HNO ID: [id number] Author: May Herrera (Sw) Service: Care Management Author Type: Candy Wrapping Machine Operator Type: Care Mgt Progress Note Filed: [...] of care sent via [facility] () Nurse to provide discharge instructions. TRANSPORTATION ARRANGEMENTS: Car Spouse ADDITIONAL CONTACT RESOURCES: Needs Prior to Discharge: Ready for Discharge Appointments for Next 45 Days Date Time Provider Location Dept Phone 07/03/2018 10:00 AM CAROLA BAPTISTE AT [phone] 07/03/2018 10:30 AM GABRIEL CANTU) LATOSHA AT [phone] 07/31/2018 2:15 PM JENNA LENTZ AT [phone] Pt to be discharged home to follow up as above. SIGNATURE: DARIO Saini PATIENT NAME: Carroll Harden DATE: June 20, 2018 TIME: 5:31 PM PAGER/CONTACT #: [phone] [facility] CASE MGT INIT ASSESon 2018 CASE MGT INIT ASSES HNO ID: [id number] Author: May Herrera (Sw) Service: Care Management Author Type: Candy Wrapping Machine Operator Type: Care Mgt Initial Assessment Filed: [...] None Has the Patient Been in a Senior Care Facility in the Past 30 days? 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 O.Therapy recommend home. Spouse visiting at bedside and will transport pt home later today.Further discharge needs not anticipated.SW/TCC to follow to assist with plans for discharge. SIGNATURE: DARIO Saini PATIENT NAME: Carroll Harden DATE: June 20, 2018 TIME: 5:27 PM PAGER/CONTACT #: [phone] [facility] CONSULTon 06-20-2018 CONSULT HNO ID: [id number] Author: Dulce Green Service: General Internal Medicine [...] Disp: Rfl: 06/19/2018 at 0630 rizatriptan (MAXALT PIER HAND) 10 mg disintegrating tablet DISSOLVE 1 TABLET [...] the care of your patient. Dulce Green APRN.GREENHOUSE MANAGER June 20, 2018 4:34 PM Normal [facility] NURSING PROGon 06-20-2018 Protein mass conc HNO ID: [id number] Author: Fela (Rn) FLETCHER Phillips Service: (none) Author Type: Registered Nurse Type: Nursing Progress Note Filed: 06/20/2018 7:39 PM Note Text: Nursing Progress Note Patient Name: Carroll Harden Patient Location: [place] [address] Daily Note: 1545. Care assumed. Pt [...] at bedside. 1720. Dr. Blake and Dulce UTILITY TELLER at bedside, plan is to stay for [...] note was completed by: Fela Phillips RN [facility] Protein mass conc HNO ID: [id number] Author: Wendy ValenciaRn) FLETCHER Underwood Service: Nursing Author Type: Registered Nurse Type: Nursing Progress Note Filed: 06/20/2018 10:20 AM Note Text: Nursing Progress Note Patient Name: Carroll Harden Patient Location: SURGERY [facility]/ S* Daily Note:Right interscalene nerve block with ultrasound guidance with Dr. Velarde and Dr. Marlow at bedside. Patient tolerated procedure well, VSS, will continue to monitor as we wait for OR team. Resting comfortably with no complaints of pain at this time. This note was completed by: Wendy Underwood RN [facility] OPERATIVE NOon 06-20-2018 OPERATIVE NO HNO ID: [id number] Author: Jenna Lentz Service: Orthopaedic Surgery Author Type: Physician Type: Operative Report Filed: 06/20/2018 1:25 PM Note Text: [place] [id number] [place] OPERATIVE REPORT NAME: Carroll Harden [facility] #: [id number] DATE: 06/20/2018 (11:18am-1:17pm) AGE: 58 SURGEON 1: Jenna Lentz M.D. SUPERVISOR BEAM DEPARTMENT: 1. Augie Coates M.D. 2. Kusum Prasad M.D. 3. Mundo Pablo OPERATION: Right total shoulder arthroplasty, biceps tenodesis. ANESTHESIA: General anesthesia with regional interscalene nerve block for postoperative pain control. PREOPERATIVE DIAGNOSIS: Right shoulder primary glenohumeral osteoarthritis. POSTOPERATIVE DIAGNOSIS: Right shoulder primary glenohumeral osteoarthritis, biceps tendinopathy. OPERATIVE INDICATIONS: The patient is a 58 year oldmnp-qieq-tsr right-hand dominant white female who has a [...] rotator interval stitch was then passed in pvqtdj-ez-paznz fashion with a #2 Ticron suture and tied down to close the lateral rotator interval and set the osteotomy superiorly. The two #2 Fiberwire sutures coming out of the bicipital groove were then sequentially passed in a xblntr-mw-jcrrm fashion medial to the horizontal mattress and [...] none COMPLICATIONS: none apparent Jenna Lentz M.D. [facility] PT EDon 06-20-2018 PT ED HNO ID: [id number] Author: Cindy ValenciaRn) FLETCHER Griffin Service: (none) [...] Signed By: Cindy Griffin RN In Department: [facility] THERAPY NTon 06-20-2018 THERAPY NT HNO ID: [id number] Author: Abi Phillips Service: Occupational Therapy Author Type: Occupational Therapist Type: Therapy (PT/OT/Speech/Resp) Filed: 06/20/2018 4:59 PM Note Text: Occupational Therapy Evaluation SERVICE DATE: 06/20/2018 SERVICE TIME: 1550 to 1640 ROOM: [address] Recommended Discharge Disposition: Home Anticipated Discharge [...] living (ADL) Interventions Provided: Evaluation;Therapeuti c Exercise (50435);Self Long-Term Management (51932) $ Evaluation-Low (13558) Billed Units: 1 unit Therapeutic Exercise (61708) Treatment Minutes: 10 1 unit Skilled Intervention(s): Education in Self Long-Term Management (96035) Treatment Minutes: 28 2 units Skilled Intervention(s): [...] Environment Patient Lives With: Spouse Assistance Available: fence erector Number Of Stairs To Bed/Bath: 0 Equipment [...] DATE: June 20, 2018 TIME: 4:54 PM [facility] XR SHOULDER 2V AP/TRUE AP RT [...] Jun 20 2018 2:04PM EST [id number] N [facility] NURSING PROGon 06-09-2018 Protein mass conc HNO ID: [id number] Author: Ivana (Rn) FLETCHER Heller Service: Nursing [...] 2018 11:10 AM Addendum 06/15/18 EKG IN [facility] FINAL Ivana Heller RN June 15, 2018 4:39 PM Normal [facility] Type and SCR (30D)on 019 ABO/RH(D) Positive Normal [facility] HOSPon 04-28-2018 HOSP Patient:Adalberto Harden MRN: Height:5' 2 (1.575 m) Weight:186 lb (84.369 kg) Outpatient Medications as of 06/20/18: calcium phosphate dibas/vit D3 (VITAMIN D, WITH CALCIUM, ORAL) docusate sodium (COLACE) 100 mg capsule aspirin, enteric coated (ECOTRIN LOW STRENGTH) 81 mg EC tablet oxyCODONE-acetaminoph en (PERCOCET) 5-325 mg tablet rizatriptan (MAXALT PIER HAND) 10 mg disintegrating tablet mupirocin (BACTROBAN) 2 [...] 46.0 36.0 Progress Notes (RADIO CT SCAN [facility]): RT Lillian, Tech 06/07/2018 [...] RT Lillian June 07, 2018 9:54 AM Normal [facility] Vital Signs Date Time Vital Sign Value Performing Clinician Facility 04-29-2023 09:00-0500 Body height 154.94 cm Robert Cruz Other [facility] Other 04-29-2023 09:00-0500 Body mass index (BMI) [Ratio] 33.14 kg/m2 Robert [facility] Other [facility] Other 04-29-2023 09:00-0500 Body weight 79.56 kg Robert [facility] Other [facility] Other 04-29-2023 09:00-0500 Diastolic blood pressure 89 mm[Hg] Robert [facility] Other [facility] Other 04-29-2023 09:00-0500 Respiratory rate 12 /min Robert Ball Other [facility] Other 04-29-2023 09:00-0500 Systolic blood pressure 155 mm[Hg] Robert Ball Other [facility] Other 12-20-2022 13:45-0400 Body height 154.94 cm Robert Ball Other [facility] Other 12-20-2022 13:45-0400 Body mass index (BMI) [Ratio] 34.12 kg/m2 Robert Ball Other [facility] Other 12-20-2022 13:45-0400 Body weight 81.92 kg Robert Ball Other [facility] Other 12-20-2022 13:45-0400 Diastolic blood pressure 96 mm[Hg] Robert Ball Other [facility] Other 12-20-2022 13:45-0400 Respiratory rate 12 /min Robert Ball Other [facility] Other 12-20-2022 13:45-0400 Systolic blood pressure 179 mm[Hg] Robert Ball Other [facility] Other 08-04-2022 09:45-0400 Body height 154.94 cm Robert Ball Other [facility] Other 08-04-2022 09:45-0400 Body mass index (BMI) [Ratio] 33.33 kg/m2 Robert Ball Other [facility] Other 08-04-2022 09:45-0400 Body weight 80.02 kg Robert Ball Other [facility] Other 08-04-2022 09:45-0400 Diastolic blood pressure 77 mm[Hg] Robert Ball Other [facility] Other 08-04-2022 09:45-0400 Respiratory rate 12 /min Robert Hamilton Other [facility] Other 08-04-2022 09:45-0400 Systolic blood pressure 128 mm[Hg] Robert Cruz Other [facility] Other Encounters Encounter Date Encounter Type Care Provider Facility Start: 06-27-2023 End: 06-28-2023 ambulatory [facility] Start: 06-06-2023 End: 06-07-2023 ambulatory [facility] Start: 06-01-2023 End: 06-01-2023 ambulatory Robert Cruz Other [facility] Other Start: 06-01-2023 Telephone encounter Robert Cruz [facility] Start: 05-23-2023 End: 05-24-2023 ambulatory [facility] Start: 05-13-2023 End: 05-13-2023 ambulatory Robert Cruz Other [facility] Other Start: 05-13-2023 Telephone encounter Robert Ball [facility] Start: 05-09-2023 End: 05-09-2023 ambulatory Robert Ball Other [facility] Other Start: 05-09-2023 Telephone encounter Robert Ball [facility] Start: 05-04-2023 End: 05-04-2023 ambulatory Robert Ball Other [facility] Other Start: 05-04-2023 Telephone encounter Robert Ball [facility] Start: 05-02-2023 End: 05-02-2023 ambulatory Robert Ball Other [facility] Other Start: 05-02-2023 Telephone encounter Robert Ball [facility] Start: 04-29-2023 End: 04-29-2023 ambulatory Robert Ball Other [facility] Other Start: 04-29-2023 Office outpatient vi sit 15 minutes Robert Ball [facility] Start: 04-04-2023 End: 04-04-2023 ambulatory Robert Ball Other [facility] Other Start: 04-04-2023 Telephone encounter Robert Ball [facility] Start: 01-24-2023 End: 01-24-2023 ambulatory Robert Ball Other [facility] Other Start: 01-24-2023 Telephone encounter Robert Ball [facility] Start: 12-23-2022 End: 12-23-2022 ambulatory Robert Ball Other [facility] Other Start: 12-23-2022 Telephone encounter Robert Ball [facility] Start: 12-20-2022 End: 12-20-2022 ambulatory Robert Ball Other [facility] Other Start: 12-20-2022 Office outpatient vi sit 15 minutes Robert Ball [facility] Start: 12-17-2022 End: 12-17-2022 ambulatory Robert Ball Other [facility] Other Start: 12-17-2022 Telephone encounter Robert Ball [facility] Start: 11-08-2022 End: 11-08-2022 ambulatory Robert Ball Other [facility] Other Start: 11-08-2022 Telephone encounter Robert Ball [facility] Start: 10-22-2022 End: 10-22-2022 ambulatory Robert Ball Other [facility] Other Start: 10-22-2022 Telephone encounter [facility] Start: 10-13-2022 End: 10-13-2022 ambulatory Robert Cruz Other [facility] Other Start: 10-13-2022 Telephone encounter [facility] Start: 09-27-2022 End: 09-27-2022 ambulatory Robert Cruz Other [facility] Other Start: 09-27-2022 Telephone encounter Robert [facility] Start: 08-23-2022 End: 08-24-[address] RISHI PARKER Facility:[facility] Start: 08-04-2022 End: 08-04-2022 ambulatory Robert Cruz Other [facility] Other Start: 08-04-2022 Office outpatient vi sit 25 minutes Robert Cruz [facility] Start: 04-03-2022 Encounter for genera l adult medical examination without abnormal findings DR ROBERT CRUZ [facility] Start: 03-30-2022 End: 03-31-[address] [...] End: 07-03-2018 Patient encounter procedure [facility] Start: 06-20-2018 End: 06-20-2018 Evaluation and management of inpatient [facility] Procedures Date Procedure Procedure Detail Performing Clinician Start: 06-07-2018 Antibody screen JENNA TOVAR Payers Date Payer Category Payer Unknown 2022 [facility] [id number] 2019 Unknown [id number] 1960 Self-pay [id number] 1959 Unknown [id number] 2.16.84 [id number] 1959 Unknown [id number] 2.16.84 [id number] 1959 Unknown [id number] 2.16.84 [id number] 1959 Unknown [id number] 2.16.84 [id number] 1959 Unknown [id number] 2.16.84 [id number] 1959 Unknown [id number] 2.16.84 [id number] 1959 Unknown [id number] 2.16. [id number] 1959 Unknown [id number] 2.16. [id number] 1959 Unknown [id number] 2.16. [id number] Unknown [id number] 2.16.84 [id number] Social History Date Type Detail Facility Sex Assigned At [facility] Other Clinical Notes 08-04-2022 to 06-01-2023 Note [...] and without status migrainosus (ICD-10 - G43.719) [facility] Other 01-15-2024 Evaluation note* Encounter Date Diagnosis Assessment Notes Treatment Notes Treatment Clinical Notes Apr, Intractable chronic migraine without aura and without status migrainosus (ICD-10 - G43.719) [facility] Other 01-08-2024 Evaluation note* Encounter Date Diagnosis Assessment Notes Treatment Notes Treatment Clinical Notes Apr, Intractable chronic migraine without aura and without status migrainosus (ICD-10 - G43.719) [facility] Other 01-05-2024 Evaluation note* Encounter Date Diagnosis [...] Begin Amitriptyline Stop Tizanidine. 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 May want to cut back on Zanaflex. [...] Pain in left shoulder (ICD-10 - M25.512) [facility] Other 06-30-2023 Evaluation note* Encounter Date Diagnosis Assessment Notes Treatment Notes Treatment Clinical Notes Sep, Type 2 diabetes mellitus with hyperglycemia, without long-term current use of insulin (ICD-10 - E11.65) [facility] Other 06-05-2023 Evaluation note* Encounter Date Diagnosis Assessment Notes Treatment Notes Treatment Clinical Notes Sep, Candidiasis, intertriginous (ICD-10 - B37.2) [facility] Other 04-12-2023 Evaluation note* Encounter Date Diagnosis [...] use, the patient reduces the risk for IL, CVA, HTN, cardiac dysrhythmias and sudden cardiac [...] Jul, Other specified hypothyroidism (ICD-10 - E03.8) [facility] Other Evaluation noteNo InformationNort ReserveOut Other History general Narrative - Reported* Type [...] LEFT HEART CATHETERIZATION 2016 Hospitalization History SEE [facility] Other History general Narrative - Reported* Type [...] Right knee arthroscopy 10/2022 Hospitalization History SEE [facility] Other Reason for referral (narrative)* Reason Evaluation of right knee pain Diagnosis 1 Strain of right knee , subsequent encounter (S86.103V) Referral Organization [facility] Odette roe Referring Provider First Name Robert Referring Provider Last Name Hamilton Referring Provider Specialty Internal Nd yoni Referred Provider Rishi Parker Jr Referred Provider Specialty Orthopedic S urgery Referral Priority Routine [facility] Other Reason for referral (narrative)* Reason Referral for neck pa in Diagnosis 1 Cervicalgia (M54.2) Diagnosis 2 Cervical spondylosis (M47.812) Referral Organization [facility] Ohai bhupinder Referring Provider First Name Robert Referring Provider Last Name Hamilton Referring Provider Specialty Internal Nd dicjuan Referred Organization [facility] Referred Address [address] [place], [place],[address] Referred Provider Specialty Pain Medicin e Referral Priority Routine General Notes Patient has hx of ce rvical discectomy and fusion and presented w/ persistent neck pain, which radiated upwards causing a headache. She is being referred for treatment with the pain clinic. Clinical Notes Include MRI [facility] Other Summary Purpose Family History No Family History Records FoundNo Family History Records FoundNo Family History Records FoundNo Family History Records FoundNo Family History Records Found Advance Directives No Advanced Directives Records FoundNo Advanced Directives Records FoundNo Advanced Directives Records FoundNo Advanced Directives Records FoundNo Advanced Directives Records Found Additional Source Comments INFORMATION SOURCE (unrecogn ized section and content) DATE CREATED AUTHOR 06/20/2018 [facility] DATE CREATED AUTHOR AUTHOR'S ORGANIZ ATION 07/04/2018 [facility] DATE CREATED AUTHOR AUTHOR'S ORGANIZ ATION 09/18/2020 [facility] DATE CREATED AUTHOR AUTHOR'S ORGANIZ ATION 08/27/2022 [facility] DATE CREATED AUTHOR AUTHOR'S ORGANIZ ATION 07/01/2023 [facility] REASON FOR VISIT (unrecogniz ed [...] BE BASED ON THE PRIMARY CLINICAL RECORDS. [facility]. provides no warranty or guarantee of the accuracy or completeness of information in this document.
[2023-08-08 06:50] VITALS: BP 105/64; PULSE 72; TEMP 36.2; O2SAT 97
[2023-08-08 07:07] LABS: Glucometer 107 mg/dL (74-106)
[2023-08-08 07:41] VITALS: BP 100/54; PULSE 63; PULSE 66; O2SAT 93
[2023-08-08 07:42] VITALS: BP 124/59; O2SAT 93
[2023-08-08] MEDS: DEXAMETHASONE SOD PHOS 10 MG/ML VIAL INJ (07:45)
[2023-08-08] MEDS: BUPIVACAINE HCL 0.25% PF 25 MG/10 ML VIAL INJ (07:45)
[2023-08-08] MEDS: LIDOCAINE HCL 2% 400 MG/20 ML MDV 15 ML INJ (07:46)
--- NOTE | 2023-08-08 07:52 | P.ON_ITS ---
Date of procedure: 08/08/23 Pre-op diagnosis: Cervical spondylosis Post-op diagnosis: same as pre-op Procedure: Procedure: Left C2-3, 3-4 radiofrequency ablation Medications: Bupivacaine 0.25% 3cc, lidocaine 2% 3cc, dexamethasone 10mg The patient was seen and examined in the preoperative holding area.? The site was marked.? Written informed consent was obtained and placed on the chart.? The patient was brought to the medical procedure unit and placed in the prone position.? A timeout was completed verifying correct patient, procedure, positioning, and special requirements.? The skin overlying the target points, the designated medial branch, were prepped and draped in the usual sterile fashion.? The target point was achieved with a 20-gauge 15 cm with a 10 mm curved active tip radiofrequency cannula under direct fluoroscopic visualization.? The needle was inserted at level C2 on the left side. Needle tip position was confirmed with lateral fluoroscopic position.? Motor stimulation was carried out at 2 Hz up to 5 volts with the absence of extremity activity.? This was repeated at level C3, 4 on left side.?? Sensory stimulation was carried out.? Concordant pain was realized at the above- mentioned sites.? Then radiofrequency lesioning was carried out times 90 seconds at 80 degrees times 2 lesions at each level.? The radiofrequency probe was removed prior to cannula removal.? The above-mentioned injectate was placed in 1 mL increments.? The needle was removed.? Insertion sites were covered.? The patient was taken to the postoperative recovery area and monitored for an appropriate length of time before being found suitable for discharge in the company of a responsible adult. Anesthesia: Local Surgeon: Miriam Barron Pathology: none sent Condition: stable Disposition: no change
== END 2023-08-08 07:53 | disposition home or self-care (01) ==
PROVIDERS: PCP Internal Medicine; Visit Provider Anesthesiology
DX: M47.812 Spondylosis without myelopathy or radiculopathy, cervical region (principal); Z79.84 Long term (current) use of oral hypoglycemic drugs
CPT/HCPCS: 36415; 64633; 64634; 82948; J1100

== ENCOUNTER 2023-08-15 08:20 | Day surgery (SDC) | payer BC, SELFPAY ==
[2023-08-15 08:34] VITALS: BP 113/64; PULSE 66; TEMP 36.6; O2SAT 97
[2023-08-15 08:37] LABS: Glucometer 122 mg/dL (74-106)
[2023-08-15 09:16] VITALS: BP 136/59; PULSE 61; O2SAT 94
[2023-08-15 09:27] VITALS: PULSE 62; O2SAT 94
--- NOTE | 2023-08-15 09:28 | P.ON_ITS ---
Date of procedure: 08/15/23 Pre-op diagnosis: Cervical spondylosis Post-op diagnosis: same as pre-op Procedure: Procedure: Right C2-3, 3-4 radiofrequency ablation Medications: Bupivacaine 0.25% 3cc, lidocaine 2% 3cc, dexamethasone 10mg The patient was seen and examined in the preoperative holding area.? The site was marked.? Written informed consent was obtained and placed on the chart.? The patient was brought to the medical procedure unit and placed in the prone position.? A timeout was completed verifying correct patient, procedure, positioning, and special requirements.? The skin overlying the target points, the designated medial branch, were prepped and draped in the usual sterile fashion.? The target point was achieved with a 20-gauge 15 cm with a 10 mm curved active tip radiofrequency cannula under direct fluoroscopic visualization.? The needle was inserted at level C2 on the right side. Needle tip position was confirmed with lateral fluoroscopic position.? Motor stimulation was carried out at 2 Hz up to 5 volts with the absence of extremity activity.? This was repeated at level C3, 4 on right side.?? Sensory stimulation was carried out.? Concordant pain was realized at the above- mentioned sites.? Then radiofrequency lesioning was carried out times 90 seconds at 80 degrees times 2 lesions at each level.? The radiofrequency probe was removed prior to cannula removal.? The above-mentioned injectate was placed in 1 mL increments.? The needle was removed.? Insertion sites were covered.? The patient was taken to the postoperative recovery area and monitored for an appropriate length of time before being found suitable for discharge in the company of a responsible adult. Anesthesia: Local Surgeon: Miriam Barron Pathology: none sent Condition: stable Disposition: no change
[2023-08-15 09:29] VITALS: BP 146/67
[2023-08-15] MEDS: DEXAMETHASONE SOD PHOS 10 MG/ML VIAL INJ (09:30)
[2023-08-15] MEDS: BUPIVACAINE HCL 0.25% PF 25 MG/10 ML VIAL 2 ML INJ (09:30)
[2023-08-15] MEDS: LIDOCAINE HCL 2% 400 MG/20 ML MDV INJ (09:30)
== END 2023-08-15 09:32 | disposition home or self-care (01) ==
LOC: SURGOUT 08:20
PROVIDERS: PCP Internal Medicine; Visit Provider Anesthesiology
DX: M47.812 Spondylosis without myelopathy or radiculopathy, cervical region (principal); Z79.84 Long term (current) use of oral hypoglycemic drugs
CPT/HCPCS: 36415; 64633; 64634; 82948; J1100

== ENCOUNTER 2023-09-14 13:32 | Outpatient (OUT) | payer BC, SELFPAY ==
--- NOTE | 2023-09-14 13:59 | P.CN_ITS ---
Consult Note: HPI Data of Consult Patient: known to practice within the last 3 years Consult date: 05/23/23 Requesting Physician: Selina Presley NP Primary Care Provider: Robert Cruz DO Consult Narrative Reason for consult: Neck, bilateral posterior occipital pain Narrative: 63yof who presents for assessment. Persistent cervical pain that radiates from bilateral posterior occiput to forehead. Imaging reviewed, which shows history of cervical fusion with facet arthropathy noted at C2-3, 3-4. Engaged in provider directed home exercises for >6 weeks, with minimal benefit. Has tried various medications for pain, with limited relief. Denies adverse med side effects. Patient recently underwent right and left C2-3 C3-4 facet RFA with no improvement, patient reports feeling worse. Pain today 8/10 increasing to 10/10, constant sharp aching punch cc:: CC: Selina Presley NP Review of Systems ROS Status of ROS 10 or more systems reviewed and unremark able except as noted in history and below Musculoskeletal Reports: neck pain PFSH PFSH Medical History Osteoarthritis ?M19.90 - Unspecified osteoarthritis, unspecified site (ICD-10) Low back pain ?M54.50 - Low back pain, unspecified (ICD-10) Neck pain ?M54.2 - Cervicalgia (ICD-10) TIA (transient ischemic attack) ?G45.9 - Transient cerebral ischemic attack, unspecified (ICD-10) Hearing deficit ?H91.90 - Unspecified hearing loss, unspecified ear (ICD-10) Acid reflux ?K21.9 - Gastro-esophageal reflux disease without esophagitis (ICD-10) Obesity ?E66.9 - Obesity, unspecified (ICD-10) Diabetes ?E11.9 - Type 2 diabetes mellitus without complications (ICD-10) Hypothyroid ?E03.9 - Hypothyroidism, unspecified (ICD-10) Sleep apnea ?G47.30 - Sleep apnea, unspecified (ICD-10) Irregular heart beat ?I49.9 - Cardiac arrhythmia, unspecified (ICD-10) High cholesterol ?E78.00 - Pure hypercholesterolemia, unspecified (ICD-10) Hypertension ?I10 - Essential (primary) hypertension (ICD-10) Surgical History H/O cosmetic surgery ?Z98.890 - Other specified postprocedural states (ICD-10) H/O thyroidectomy ?E89.0 - Postprocedural hypothyroidism (ICD-10) H/O lumbosacral spine surgery ?Z98.890 - Other specified postprocedural states (ICD-10) H/O operation on finger ?Z98.890 - Other specified postprocedural states (ICD-10) H/O carpal tunnel repair ?Z98.890 - Other specified postprocedural states (ICD-10) H/O arthroscopic knee surgery ?Z98.890 - Other specified postprocedural states (ICD-10) H/O: hysterectomy ?Z90.710 - Acquired absence of both cervix and uterus (ICD-10) Hx of appendectomy ?Z90.49 - Acquired absence of other specified parts of digestive tract (ICD- 10) H/O exploratory laparotomy ?Z98.890 - Other specified postprocedural states (ICD-10) H/O: ?Z98.891 - History of uterine scar from previous surgery (ICD-10) H/O shoulder surgery ?Z98.890 - Other specified postprocedural states (ICD-10) H/O cervical spine surgery ?Z98.890 - Other specified postprocedural states (ICD-10) S/P cataract extraction ?Z98.49 - Cataract extraction status, unspecified eye (ICD-10) Meds Home Medications and Allergies Home Medications ?Medication ?Instructions ?Recorded ?Confirmed ?Type atenolol 50 mg tablet 50 mg PO DAILY 09/28/22 08/15/23 History citalopram 40 mg tablet (Celexa) 40 mg PO DAILY 09/28/22 08/15/23 History glimepiride 4 mg tablet 4 mg PO DAILY 09/28/22 08/15/23 History levothyroxine 125 mcg tablet 125 mcg PO DAILY 09/28/22 08/15/23 History (Synthroid) metformin 500 mg tablet 500 mg PO BID 09/28/22 08/15/23 History pravastatin 40 mg tablet 40 mg PO DAILY 09/28/22 08/15/23 History tizanidine 4 mg tablet 4 mg PO BID PRN muscle spasticity 09/28/22 08/15/23 History clonazepam 1 mg tablet (Klonopin) 1.5 mg PO DAILY 05/18/23 08/15/23 History rizatriptan 10 mg tablet (Maxalt) 10 mg PO Q2H PRN migraine headache 05/18/23 08/15/23 History olmesartan 20 mg tablet mg 06/06/23 History Allergies Allergy/AdvReac Type Severity Reaction Status Date / Time calcium [From DHEA] Allergy Severe respirator Verified 08/08/23 06:58 arrest calcium carbonate [From DHEA] Allergy Severe respirator Verified 08/08/23 06:58 arrest prasterone (DHEA) [From DHEA] Allergy Severe respirator Verified 08/08/23 06:58 arrest hydromorphone [From Dilaudid] Allergy Intermediate Verified 08/08/23 06:58 iodine Allergy Intermediate Verified 08/08/23 06:58 latex Allergy Intermediate Verified 08/08/23 06:58 meperidine [From Demerol] Allergy Intermediate Verified 08/08/23 06:58 sumatriptan [From Imitrex] Allergy Intermediate Verified 08/08/23 06:58 Exam Constitutional Documenting provider has reviewed patient's vital signs: yes Common normals: no apparent distress, oriented x3, healthy appearing, alert and well nourished General appearance: cooperative HENMT Common normals: normocephalic, hearing grossly normal bilaterally and moist oral mucous membranes Head and scalp: normocephalic Eye Common normals: PERRL Pupil: PERRL Neck & C-Spine Common normals: full ROM General: normal visual inspection Cervical spine: pain with cervical ROM, cervical spine tenderness, paracervical muscle tenderness and paracervical muscle spasm Other: tenderness over right occipital nerve sensitivity to touch and increased myofascial pain post RFA negative spurlings, no radiculopathy Chest Common normals: inspection of chest normal Respiratory Common normals: normal respiratory effort, no retractions and no use of accessory muscles Neuro Common normals: oriented x3, CN's II-XII intact bilaterally, moves all extremities, no focal motor deficits, no sensory deficits noted and deep tendon reflexes 2+ bilaterally Sensorium/orientation: alert Motor exam: strength 5/5 throughout and no movement abnormalities noted Psych Common normals: mental status grossly normal, thought process normal, cooperative, affect normal, speech normal and activity/motor behavior normal Speech: normal speech Thought process: normal thought process Results Additional Findings Additional findings: If on a controlled substance or opioids, I have checked an [place] report on this patient and there are no aberrancies noted in the prescribing history.??If on a controlled substance or opioid a drug screen was completed and reviewed within the last year, and if there has not been a drug screen completed we ordered one today to monitor higher risk, state monitored pain medication use. As part of providing excellent, safe, comprehensive care, the following was completed at our patient's visit: 1. A medication reconciliation and review to ensure accurate knowledge of current/active medications, including asking our patients to inform us about any [id number] medications or herbal remedies/nutritional supplements/alternative remedies. 2. A review to specifically ensure our patients have had annual screening for screening for depression, screening for tobacco use, and screening for unhealthy alcohol use. For concerning screenings had a discussion with the patient, pro vided patient education, and recommended follow-up with primary care provider when appropriate. If patient noted with a risk of falling, they received education on strength, gait, and balance training to prevent future risk of falling. Assessment and Plan Assessment and Plan (1) Cervical spondylosis: (2) Cervical postlaminectomy syndrome: (3) Myofascial pain syndrome, cervical: (4) Bilateral occipital neuralgia: Assessment and Plan: right greater than left (5) Migraines: Plan f/u with Dr Barron for right occipital nerve injection and right cervical paraspinal TPI stop aleve and OTC NSAIDs, start mobic 7.5mg BID PRN pain continue tizanidine 4mg HS, start baclofen 5-10mg daytime PRN myofascial pain/spasms discussed OTC lidocaine patches
== END 2023-09-14 13:33 | disposition home or self-care (01) ==
PROVIDERS: PCP Internal Medicine; Visit Provider Nurse Practitioner
DX: M47.812 Spondylosis without myelopathy or radiculopathy, cervical region (principal); M96.1 Postlaminectomy syndrome, not elsewhere classified; M79.18 Myalgia, other site; M54.81 Occipital neuralgia; G43.909 Migraine, unspecified, not intractable, without status migrainosus
CPT/HCPCS: G0463

== ENCOUNTER 2023-09-26 14:04 | Outpatient (OUT) | payer BC, SELFPAY ==
--- NOTE | 2023-09-26 15:02 | P.CN_ITS ---
Consult Note: HPI Data of Consult Patient: known to practice within the last 3 years Consult date: 09/26/23 Requesting Physician: Miriam Barron MD Primary Care Provider: Robert Cruz DO Consult Narrative Reason for consult: right neck, posterior head pain Narrative: 63yof who presents for in office injection. continues to have pain in right posterior head, right neck and shoulder area. cc:: CC: Miriam Barron MD Review of Systems ROS Status of ROS 10 or more systems reviewed and unremark able except as noted in history and below PFSH PFS Medical History Osteoarthritis ?M19.90 - Unspecified osteoarthritis, unspecified site (ICD-10) Low back pain ?M54.50 - Low back pain, unspecified (ICD-10) Neck pain ?M54.2 - Cervicalgia (ICD-10) TIA (transient ischemic attack) ?G45.9 - Transient cerebral ischemic attack, unspecified (ICD-10) Hearing deficit ?H91.90 - Unspecified hearing loss, unspecified ear (ICD-10) Acid reflux ?K21.9 - Gastro-esophageal reflux disease without esophagitis (ICD-10) Obesity ?E66.9 - Obesity, unspecified (ICD-10) Diabetes ?E11.9 - Type 2 diabetes mellitus without complications (ICD-10) Hypothyroid ?E03.9 - Hypothyroidism, unspecified (ICD-10) Sleep apnea ?G47.30 - Sleep apnea, unspecified (ICD-10) Irregular heart beat ?I49.9 - Cardiac arrhythmia, unspecified (ICD-10) High cholesterol ?E78.00 - Pure hypercholesterolemia, unspecified (ICD-10) Hypertension ?I10 - Essential (primary) hypertension (ICD-10) Surgical History H/O cosmetic surgery ?Z98.890 - Other specified postprocedural states (ICD-10) H/O thyroidectomy ?E89.0 - Postprocedural hypothyroidism (ICD-10) H/O lumbosacral spine surgery ?Z98.890 - Other specified postprocedural states (ICD-10) H/O operation on finger ?Z98.890 - Other specified postprocedural states (ICD-10) H/O carpal tunnel repair ?Z98.890 - Other specified postprocedural states (ICD-10) H/O arthroscopic knee surgery ?Z98.890 - Other specified postprocedural states (ICD-10) H/O: hysterectomy ?Z90.710 - Acquired absence of both cervix and uterus (ICD-10) Hx of appendectomy ?Z90.49 - Acquired absence of other specified parts of digestive tract (ICD- 10) H/O exploratory laparotomy ?Z98.890 - Other specified postprocedural states (ICD-10) H/O: ?Z98.891 - History of uterine scar from previous surgery (ICD-10) H/O shoulder surgery ?Z98.890 - Other specified postprocedural states (ICD-10) H/O cervical spine surgery ?Z98.890 - Other specified postprocedural states (ICD-10) S/P cataract extraction ?Z98.49 - Cataract extraction status, unspecified eye (ICD-10) Meds Home Medications and Allergies Home Medications ?Medication ?Instructions ?Recorded ?Confirmed ?Type atenolol 50 mg tablet 50 mg PO DAILY 09/28/22 08/15/23 History citalopram 40 mg tablet (Celexa) 40 mg PO DAILY 09/28/22 08/15/23 History glimepiride 4 mg tablet 4 mg PO DAILY 09/28/22 08/15/23 History levothyroxine 125 mcg tablet 125 mcg PO DAILY 09/28/22 08/15/23 History (Synthroid) metformin 500 mg tablet 500 mg PO BID 09/28/22 08/15/23 History pravastatin 40 mg tablet 40 mg PO DAILY 09/28/22 08/15/23 History tizanidine 4 mg tablet 4 mg PO BID PRN muscle spasticity 09/28/22 08/15/23 History clonazepam 1 mg tablet (Klonopin) 1.5 mg PO DAILY 05/18/23 08/15/23 History rizatriptan 10 mg tablet (Maxalt) 10 mg PO Q2H PRN migraine headache 05/18/23 08/15/23 History olmesartan 20 mg tablet mg 06/06/23 History baclofen 10 mg tablet 10 mg PO DAILY PRN muscle spasm 09/14/23 Rx #30 tabs meloxicam 7.5 mg tablet 7.5 mg PO DAILY #60 tabs 09/14/23 Rx Allergies Allergy/AdvReac Type Severity Reaction Status Date / Time calcium [From DHEA] Allergy Severe respirator Verified 08/08/23 06:58 arrest calcium carbonate [From DHEA] Allergy Severe respirator Verified 08/08/23 06:58 arrest prasterone (DHEA) [From DHEA] Allergy Severe respirator Verified 08/08/23 06:58 arrest hydromorphone [From Dilaudid] Allergy Intermediate Verified 08/08/23 06:58 iodine Allergy Intermediate Verified 08/08/23 06:58 latex Allergy Intermediate Verified 08/08/23 06:58 meperidine [From Demerol] Allergy Intermediate Verified 08/08/23 06:58 sumatriptan [From Imitrex] Allergy Intermediate Verified 08/08/23 06:58 Exam Narrative Exam Narrative: Psych-alert and oriented x 3.? Attentive and appropriate, constitutionally normal, displays normal mood and affect per situation.? There are no obvious deficits in memory, reasoning, or intellect.? Cranial nerves 3-12 are grossly intact.? Pupils are equally round and reactive to light. No notable photophobia. There is significant palpatory tenderness over the right occipital nerve at the occipital groove. Cervical - tenderness to palpation in right paracervical spine. Multiple trigger points expressed on palpation. Coordination remains intact.? Gait remains non-antalgic. Assessment and Plan Assessment and Plan (1) Bilateral occipital neuralgia: (2) Myofascial pain syndrome, cervical: Plan 63yof who presents for in office injection. continues to have right posterior head and neck pain, would like to proceed with right occipital nerve block and right trigger point injection. we agree to proceed. Procedure: Right occipital nerve block, right splenius capitis, trapezius, sternocleidomastoid trigger point injection Medications: Bupivacaine 0.25% 4cc, kenalog 40mg I explained the details of the procedure to the patient including the risks, benefits and alternatives. We had an informed discussion and the patient verbalized understanding and signed the consent form. All questions were answered appropriately.? A time out was performed.The patient was identified, the chart was reviewed, and all allergies were confirmed.? Laterality was conducted and marked.? The right side of the occiput was sterilely prepped times three using alcohol. The occipital artery was palpated, then a gigi was placed two centimeters lateral to the greater occipital protuberance.? A 27 gauge 1 1/2 inch needle was used to inject a total of 2.0 mL of the above medication after negative aspiration for? heme, CSF, or other bodily fluid.? The needle was then fanned in the direction of the greater occipital nerve.? The needle was removed. ?Next, after obtaining a comfortable seated position, the skin overlying the right neck and shoulder was prepped with alcohol. The needle was inserted in a sterile manner through the skin towards the palpated trigger point areas. The contents of the syringe were gently injected without any resistance 1cc at a time into the appropriate trigger point.? The needle was removed and pressure was applied at the injection site to decrease the incidence of ecchymosis and hematoma formation. The patient was discharged with no complications.
== END 2023-09-26 14:05 | disposition home or self-care (01) ==
LOC: PM 14:04
PROVIDERS: PCP Internal Medicine; Visit Provider Anesthesiology
DX: M54.81 Occipital neuralgia (principal); M79.18 Myalgia, other site
CPT/HCPCS: 20553; 64405

== ENCOUNTER 2023-12-27 07:04 | Outpatient (OUT) | payer BC, SELFPAY ==
--- OUTSIDE RECORDS SUMMARY | 2023-12-27 07:07 | XMS_ITS | CCD ---
Author Organization [facility] CliniSywy Care Team Providers Care Stack Attendant Name Role Phone SUN JENNA T Admitting Unavailable RICSHANAE JENNA T Attending Unavailable LISANDRO BLAKE Consulting Unavailable SUN [...] Unavailable PRISCILLA ., DR MAZARIEGOS Attending Unavailable HOY ., DR MAZARIEGOS Consulting Unavailable PRISCILLA Soares, DR MAZARIEGOS Admitting Unavailable BALL, DR NINO Primary Care Unavailable Gibreezy HENLEY, Miriam Stephenson Attending Unavailable Gieditis , Jacobrius Sachin Attending Unavailable Gimadonnaitis , Andrius Sachin Attending Unavailable Anderson HENLEY, Andrius Sachin Attending Unavailable Gimadonnaitis , Andrius Vytgarcía Attending Unavailable Gieditis , Andvalentine Stephenson Attending Unavailable Allergies Allergy Classification Reported Allergen(s) Allergy Type Date of Onset Reaction(s) Facility (2 sources) Contrast media; Translations: [CONTRAST DYE] Propensity to adverse reactions to drug (disorder) 09-30-19 11 [facility] Repository (2 sources) HYDROmorphone; Translations: [HYDROMORPHONE (BULK)] Drug Allergy 08-17-19 17 [facility] Repository (20 sources) Latex; Translations: [LATEX] Propensity to adverse reactions to drug (disorder) 09-30-19 11 Unknown, Unknown Reaction [facility]ository (2 sources) Meperidine; Translations: [MEPERIDINE (PF)] Drug Allergy 09-30-19 11 [facility]ository (2 sources) Povidone-Iodine; Translations: [POVIDONE-IODINE] Drug Allergy 10-21-19 17 [facility]ository (2 sources) SUMAtriptan; Translations: [SUMATRIPTAN SUCCINATE] Drug Allergy 09-30-19 11 [facility]ository (2 sources) INFLUENZA VACCINE TRI-SP 09-10; Translations: [INFLUENZA VACCINE TRI-SP 09-10] Propensity to adverse reactions to drug (disorder) 09-30-19 11 [facility]ository (3 sources) DHE; Translations: [DHE] Propensity to adverse reactions to drug (disorder) 10-24-19 13 [facility]ository (18 sources) HYDROmorphone Drug Allergy 12-20-19 24 Unknown, Unknown Reaction [facility] (19 sources) Iodine; Translations: [iodine] Drug Allergy 10-24-19 13 Unknown, Unknown Reaction [facility] Repository (18 sources) Meperidine Drug Allergy 12-20-19 24 Unknown, Unknown Reaction [facility] (18 sources) SUMAtriptan Drug Allergy 12-20-19 24 Unknown, Unknown Reaction [facility] (18 sources) Fluad Drug allergy 12-20-19 24 Unknown, Unknown Reaction [facility] (17 sources) DHEA Drug allergy Unknown [employer] Other (1 source) HYDROmorphone Drug Allergy 10-24-19 13 [facility] Repository (1 source) Meperidine Drug Allergy 10-24-19 13 [facility] Repository (1 source) Plasmin Drug Allergy 10-24-19 13 [facility] Repository (12 sources) influenza A virus (H1N1) antigen / influenza A virus (H3N2) antigen / influenza B virus antigen Drug Allergy 11-21-19 14 Comment:FLU VACCINE [employer] [employer] Other (12 sources) Contraindication to Flu Injection Propensity to adverse reactions 03-07-20 14 Comment:advers e rxn/side effects [employer] [employer] Other (3 sources) patient allergy list reviewed by nurse or physicia Propensity to adverse reactions 12-22-19 14 Comment:Done [employer] Other (1 source) Calcium Drug Allergy 12-20-19 24 Unknown Reaction [facility] (1 source) Calcium Carbonate Drug Allergy 12-20-19 24 Unknown Reaction [facility] (1 source) prasterone (DHEA) Allergy to substance 12-20-19 Unknown Reaction [facility] (1 source) Fluad Quadrivalent Allergy to substance 04-29-19 Comment:FLU VACCINE [facility] Medications Current Medications Medication Drug Class(es) Dates Sig (Normalized) Sig (Original) atenolol 50 mg oral tablet (18 sources) beta-Adrenergic Maria Esther Start: 12-20-2023 take 50 mg by mouth once daily Atenolol Active 50 MG PO Daily December 20, 2023 12:00am Start: 08-04-2022 take 1 tablet by fredrick th every twenty-four hours Atenolol 50 MG 1 tablet Orally Once a day for 90 days Jul, Active citalopram 40 mg oral tablet (16 sources) Serotonin Reuptake Inhibitor Start: 10-18-2023 End: 10-18-2023 take 40 mg by mouth once daily Citalopram Active 40 MG PO Daily 90 90 October 18, 2023 8:37am Start: 10-22-2022 take 1 tablet by fredrick th every twenty-four hours Citalopram Hydrobromide 40 MG 1 tablet at bedtime Orally Once a day for 90 days Sep, Active clonazePAM 1 mg oral tablet (17 sources) Benzodiazepine Start: 12-20-2023 take 1.5 mg by mouth once daily at bedtime Clonazepam (Klonopin) 1 mg tablet Active 1.5 MG PO Daily at bedtime December 20, 2023 12:00am Start: 06-13-2023 End: 12-20-2023 take 1.5 mg by mouth once daily 30 minutes before bedtime Clonazepam Discontinued 1.5 MG PO Daily at bedtime 270 90 June 13, 2023 1:00am December 20, 2023 4:16pm administer 30 minutes before bedtime Start: 06-01-2023 take 3 tablets by mo uth once [...] August, Active glimepiride 4 mg oral tablet (18 sources) Sulfonylurea Start: 12-20-2023 Glimepiride Active 1 TAB PO Daily December 20, 2023 12:00am [employer] tablet with breakfast or the first main meal of the day Orally Once a day; Note: Source Status: Taking; Refills: 3; Qty: 90 Tablet; Provider: Hamilton Jones take 1 tablet by fredrick th every twenty-four hours Glimepiride 4 MG 1 tablet with breakfast or the first main meal of the day Orally Once a day for 90 days Active levothyroxine sodium 0.125 mg oral capsule (18 sources) l-Thyroxine Start: 12-20-2023 take 125 ug by mouth once daily Levothyroxine Active 125 MCG PO Daily December 20, 2023 12:00am Start: 07-26-2022 take 1 tablet by fredrick [...] stomach Orally Once a day Jul, Active Magnesium Aspart,Citrate,Oxide (1 source) Start: 12-20-2023 take 400 mg by mouth once daily Magnesium Aspart,Citrate,Oxide Active 400 MG PO Daily December 20, 2023 12:00am metFORMIN hydrochloride 500 mg oral tablet (16 sources) Biguanide Start: 12-20-2023 take 1 tablet by mouth twice daily Metformin Active MG PO December 20, 2023 12:00am [employer] tablet with a meal Orally two times daily; Note: Source Status: Taking; Refills: 3; Provider: Hamilton Jones Start: 10-13-2022 take 1 tablet by fredrick th twice daily metFORMIN HCl 500 MG 1 tablet with a meal Orally two times daily for 90 days Sep, Active pravastatin sodium 40 mg oral tablet (18 sources) HMG-CoA Reductase Inhibitor Start: 12-20-2023 take 40 mg by mouth once daily Pravastatin Active 40 MG PO Daily December 20, 2023 12:00am Start: 08-04-2022 take 1 tablet by fredrick th every twenty-four hours Pravastatin Sodium 20 MG 1 tablet Orally Once a day for 90 days Jul, Active predniSONE 20 mg oral tablet (3 sources) Start: 05-09-2023 predniSONE 20 MG 1 tablet Orally tid w/ food x 1 day then bid w/ food x 2 days then qd w/ food x 2 days for 5 days Apr, Active rizatriptan 10 mg oral tablet (8 sources) Serotonin-1b and Serotonin-1d Receptor Agonist Start: 12-20-2023 take 3 tablets by mouth every twenty-four hours Rizatriptan (Maxalt) 10 mg tablet Active 10 MG PO EVERY 2-4 HOURS December 20, 2023 12:00am do not exceed 3 doses per 24 hrs Start: 11-04-2022 take 1 tablet by fredrick th every two hours as needed for headache Maxalt-SEISMOGRAPHER 10 MG 1 tablet Orally PRN headache, [...] 90 days Active tiZANidine 4 mg oral capsule (13 sources) Central alpha-2 Adrenergic Agonist Start: 12-16-2023 take 0.5-1 tablets by mouth once daily at bedtime Tizanidine Active 4 MG PO Daily at bedtime 90 90 December 16, 2023 12:52pm take 1/2 to 1 tablet at QHS Start: 06-17-2023 End: 12-16-2023 take 0.5 tablet by mouth once daily at bedtime Tizanidine Discontinued 4 MG PO Daily at bedtime June 17, 2023 1:40pm December 16, 2023 1:19pm take 1/2 tablet at QHS take 0.5-1 tablets b y mouth once daily at bedtime tiZANidine HCl 4 MG TAKE 1/2 TO 1 TABLET BY MOUTH EVERY DAY AT BEDTIME for 90 Active Completed/Discontinued Medications Medication Drug Class(es) Dates Sig (Normalized) Sig (Original) amitriptyline hydrochloride 10 mg oral tablet (8 sources) Tricyclic Antidepressant Start: 12-20-2023 End: 12-20-2023 take 10 mg by mouth once daily at bedtime Amitriptyline Discontinued 10 MG PO Daily at bedtime December 20, 2023 12:00am December 20, 2023 3:47pm 1 TO 2 Start: 04-29-2023 take 1-2 tablets by mouth once at bedtime Amitriptyline HCl 10 MG 1 - 2 tablets at bedtime Orally q HS for 30 days Apr, Active cloNIDine hydrochloride 0.1 mg oral tablet (17 sources) Central alpha-2 Adrenergic Agonist Start: 08-04-2022 take 1 tablet by mouth twice daily as needed cloNIDine HCl 0.1 MG 1 tablet Orally twice daily Jul, Not-Taking/PRN etodolac 500 mg oral tablet (1 source) Nonsteroidal Anti-inflammatory Drug Start: 12-20-2023 End: 12-20-2023 take 500 mg by mouth twice daily Etodolac Discontinued 500 MG PO Twice daily 30 15 December 20, 2023 12:00am December 20, 2023 4:16pm naratriptan 2.5 mg oral tablet (8 sources) Serotonin-1b and Serotonin-1d Receptor Agonist Start: 12-20-2023 End: 12-20-2023 take 2.5 mg by mouth every four hours Naratriptan Discontinued 2.5 MG PO Every 4 hours December 20, 2023 12:00am December 20, 2023 4:16pm Start: 04-29-2023 Naratriptan HC l 2.5 MG 1 tablet Orally Once a day PRN headache, may repeat after 2 hours for 30 days Apr, Active olmesartan medoxomil 20 mg oral tablet (11 sources) Angiotensin 2 Receptor Maria Esther Start: 12-20-2023 End: 12-20-2023 take 20 mg by mouth once daily Olmesartan Discontinued 20 MG PO Daily December 20, 2023 12:00am December 20, 2023 4:17pm Start: 12-23-2022 take 1 tablet by fredrick th every twenty-four hours Olmesartan Medoxomil 20 MG 1 tablet Orally Once a day for 30 days Nov, Active Problems Active Problems Problem Classification Problem Date Documented Date Episodic/Chronic Anxiety disorders (18 sources) Generalized anxiety disorder; Translations: [Generalized anxiety disorder] 06-13-2023 Chronic Complications of surgical procedures or medical [...] BERNY CANO Date: 2022-08-24 07:19 Normal [facility] CBC AUTO DIFFon 03-30-2022 BASO # 0.0 103/ul Normal 0.0-0.1 [facility] Comment on above: Performed By: #### C BC #### [facility] [address] [place] [address] Dr. Rc Foster Basophils/100 WBC (Bld) 0.4 % Normal 0.2-2.0 [facility] Comment on above: Performed By: #### C BC #### [facility] [address] [place] [address] Dr. Rc Foster EO # 0.3 103/ul Normal 0.0-0.7 [facility] Comment on above: Performed By: #### C BC #### [facility] [address] [place] [address] Dr. Rc Foster Eosinophils/100 WBC (Bld) 4.9 % Normal 0.9-7.0 [facility] Comment on above: Performed By: #### C BC #### [facility] [address] [place] [address] Dr. Rc Foster Erythrocyte distribution width (RBC) [Ratio] 12.2 % Normal 11.0-15.0 [facility] Comment on above: Performed By: #### C BC #### [facility] [address] [place] [address] Dr. Rc Foster Hematocrit (Bld) [Volume fraction] 39.8 % Normal 36.0-48.0 [facility] Comment on above: Performed By: #### C BC #### [facility] [address] [place] [address] Dr. Rc Foster Hemoglobin (Bld) [Mass/Vol] 13.1 g/dL Normal 12.0-16.0 [facility] Comment on above: Performed By: #### C BC #### [facility] [address] [place] [address] Dr. Rc Foster IG # 0.02 10e3/ul Normal 0.00-0.03 [facility] Comment on above: Performed By: #### C BC #### [facility] [address] [place] [address] Dr. Rc Foster IG % 0.4 % Normal 0.0-0.5 [facility] Comment on above: Performed By: #### C BC #### [facility] [address] [place] [address] Dr. Rc Foster LYMPH # 2.1 103/ul Normal 1.2-3.8 [facility] Comment on above: Performed By: #### C BC #### [facility] [address] [place] [address] Dr. Rc Foster Lymphocytes/100 WBC (Bld) 37.1 % Normal 20.5-60.0 [facility] Comment on above: Performed By: #### C BC #### [facility] [address] [place] [address] Dr. Rc Foster MANUAL DIFF REQ NO Normal [facility] Comment on above: Performed By: #### C BC #### [facility] [address] [place] [address] Dr. Rc Foster MCH (RBC) [Entitic mass] 28.7 pg Normal 26.7-34.0 [facility] Comment on above: Performed By: #### C BC #### [facility] [address] [place] [address] Dr. Rc Foster MCHC (RBC) [Mass/Vol] 32.9 g/dL Normal 29.9-35.2 [facility] Comment on above: Performed By: #### C BC #### [facility] [address] [place] [address] Dr. Rc Foster MCV (RBC) [Entitic vol] 87.1 fL Normal 81.0-99.0 [facility] Comment on above: Performed By: #### C BC #### [facility] [address] [place] [address] Dr. Rc Foster MONO # 0.4 103/ul Normal 0.3-0.8 [facility] Comment on above: Performed By: #### C BC #### [facility] [address] [place] [address] Dr. Rc Foster Monocytes/100 WBC (Bld) 6.7 % Normal 1.7-12.0 [facility] Comment on above: Performed By: #### C BC #### [facility] [address] [place] [address] Dr. Rc Foster NEUT # 2.9 103/ul Normal 1.4-6.5 [facility] Comment on above: Performed By: #### C BC #### [facility] [address] [place] [address] Dr. Rc Foster Neutrophils/100 WBC (Bld) 50.5 % Normal 43.0-75.0 [facility] Comment on above: Performed By: #### C BC #### [facility] [address] [place] [address] Dr. Rc Foster Platelet mean volume (Bld) [Entitic vol] 9.7 fL Normal 9.5-13.5 [facility] Comment on above: Performed By: #### C BC #### [facility] [address] [place] [address] Dr. Rc Foster PLT 189 103/ul Normal 150-450 [facility] Comment on above: Performed By: #### C BC #### [facility] [address] [place] [address] Dr. Rc Foster RBC 4.57 106/ul Normal 4.20-5.40 [facility] Comment on above: Performed By: #### C BC #### [facility] [address] [place] [address] Dr. Rc Foster WBC 5.7 103/ul Normal 4.0-11.0 [facility] Comment on above: Performed By: #### C BC #### [facility] [address] [place] [address] Dr. Rc Foster GLYCOHEMOGLOBIN A1Con 2021 ADA RECOMMENDATION SEE BELOW Normal [facility] Comment on above: Result Comment: ADA RECOMMENDED LIMIT 4.0 - 6.0 ADA THERAPEUTIC TARGET < 7.0 ACTION SUGGESTED > 7.0 Performed By: #### A 1C #### [facility] [address] [address] [address] Rc Foster Glucose [Mass/Vol] 143 mg/dL Normal [facility] Comment on above: Performed By: #### A 1C #### [facility] [address] [address] [address] Rc Foster HbA1c (Bld) [Mass fraction] 6.6 % Critically high 4.5-6.2 [facility] Comment on above: Performed By: #### A 1C #### [facility] [address] [address] [address] Rc Foster LIPID PROFILEon 03-30-2022 CHOL-HDL RATIO NORM SEE BELOW Normal [facility] Comment on above: Result Comment: 3.3 - 4.4 LOW RISK 4.4 - 7.1 AVERAGE RISK 7.1 - 11.0 MODERATE RISK >11.0 HIGH RISK Performed By: #### T MARY JANE, CMP, LIPID ####[facility] [address] [id number]. Rc Foster Cholesterol [Mass/Vol] 184 mg/dL Normal <=200 [facility] Comment on above: Performed By: #### T MARY JANE, CMP, LIPID ####[facility] [address] [place] [id number]. Rc Foster Cholesterol in HDL [Mass/Vol] 42 mg/dL Normal 40-60 [facility] Comment on above: Performed By: #### T MARY JANE, CMP, LIPID ####[facility] [address] [place] [id number]. Rc Foster Cholesterol in LDL [Mass/Vol] 87.0 mg/dL Normal [facility] Comment on above: Performed By: #### T MARY JANE, CMP, LIPID ####[facility] [address] [place] [id number]. Rc Foster Cholesterol.total/Chol esterol in HDL [Mass ratio] 4.4 {ratio} Normal [facility] Comment on above: Performed By: #### T SH, CMP, LIPID ####[facility] [address] [place] [address]Dr. Rc Foster HDL NORMAL > or = 60 mg/dl - LO W CARDIOVASCULAR RISK <40 mg/dl - HIGH CARDIOVASCULAR RISK Normal [facility] Comment on above: Performed By: #### T SH, CMP, LIPID ####[facility] [address] [place] [address]Dr. Rc Foster LDL CALC NORMAL SEE BELOW Normal [facility] Comment on above: Result Comment: <100 mg/dl OPTIMAL 100 - 129 mg/dl NEAR OR ABOVE OPTIMAL 130 - 159 mg/dl BORDERLINE HIGH 160 - 189 mg/dl HIGH >190 mg/dl VERY HIGH Performed By: #### T SH, CMP, LIPID ####[facility] [address] [place] [address]Dr. Rc Foster Triglyceride [Mass/Vol] 275 mg/dL Critically high <=150 [facility] Comment on above: Performed By: #### T SH, CMP, LIPID ####[facility] [address] [place] [address]Dr. Rc Foster VLDL CALC 55.0 mg/dL Normal [facility] Comment on above: Performed By: #### T SH, CMP, LIPID ####[facility] [address] [place] [address]Dr. Rc Foster PROF 14(COMP METB)on 022 Albumin [Mass/Vol] 4.0 g/dL Normal 3.4-5.0 [facility] Comment on above: Performed By: #### T SH, CMP, LIPID ####[facility] [address] [place] [address]Dr. Rc Foster Albumin/Globulin [Mass ratio] 1.1 {ratio} Normal [facility] Comment on above: Performed By: #### T SH, CMP, LIPID ####[facility] [address] [place] [address]Dr. Rc Foster ALP [Catalytic activity/Vol] 71 U/L Normal 46-116 [facility] Comment on above: Performed By: #### T SH, CMP, LIPID ####[facility] [address] [place] [id number]. Rc Foster ALT [Catalytic activity/Vol] 29 U/L Normal 14-59 [facility] Comment on above: Performed By: #### T SH, CMP, LIPID ####[facility] [address] [place] [id number]. Rc Foster Anion gap [Moles/Vol] 13.2 mmol/L Normal [facility] Comment on above: Performed By: #### T SH, CMP, LIPID ####[facility] [address] [place] [address]Dr. Rc Foster AST [Catalytic activity/Vol] 17 U/L Normal 15-37 [facility] Comment on above: Performed By: #### T SH, CMP, LIPID ####[facility] [address] [place] [address]Dr. Rc Foster Bilirubin [Mass/Vol] 0.6 mg/dL Normal 0.2-1.0 [facility] Comment on above: Performed By: #### T SH, CMP, LIPID ####[facility] [address] [place] [address]Dr. Rc Foster Calcium [Mass/Vol] 9.0 mg/dL Normal 8.5-10.1 [facility] Comment on above: Performed By: #### T SH, CMP, LIPID ####[facility] [address] [place] [address]Dr. Rc Foster Chloride [Moles/Vol] 102 mmol/L Normal 98-107 [facility] Comment on above: Performed By: #### T SH, CMP, LIPID ####[facility] [address] [place] [id number]. Rc Foster CO2 [Moles/Vol] 27.3 mmol/L Normal 21.0-32.0 [facility] Comment on above: Performed By: #### T SH, CMP, LIPID ####[facility] [address] [place] [id number]. Rc Foster Creatinine [Mass/Vol] 1.00 mg/dL Normal 0.55-1.02 [facility] Comment on above: Performed By: #### T SH, CMP, LIPID ####[facility] [address] [place] [address]Dr. Rc Foster EGFR-AF CYPRIOT >60 Normal >=60 [facility] Comment on above: Performed By: #### T SH, CMP, LIPID ####[facility] [address] [place] [address]Dr. Rc Foster EGFR-NON AF CYPRIOT 56 mL/min/1.73m2 Critically low >=60 [facility] Comment on above: Performed By: #### T SH, CMP, LIPID ####[facility] [address] [place] [address]Dr. Rc Foster Globulin (S) [Mass/Vol] 3.5 g/dL Normal [facility] Comment on above: Performed By: #### T SH, CMP, LIPID ####[facility] [address] [place] [address]Dr. Rc Foster Glucose [Mass/Vol] 159 mg/dL Critically high 74-106 [facility] Comment on above: Performed By: #### T SH, CMP, LIPID ####[facility] [address] [place], [place] [address]Dr. Rc Foster Potassium [Moles/Vol] 4.5 mmol/L Normal 3.5-5.1 [facility] Comment on above: Performed By: #### T SH, CMP, LIPID ####[facility] [address] [place] [address]Dr. Rc Foster Protein [Mass/Vol] 7.5 g/dL Normal 6.4-8.2 [facility] Comment on above: Performed By: #### T SH, CMP, LIPID ####[facility] [address] [place] [address]Dr. Rc Foster Sodium [Moles/Vol] 138 mmol/L Normal 136-145 [facility] Comment on above: Performed By: #### T SH, CMP, LIPID ####[facility] [address] [place] [address]Dr. Rc Foster Urea nitrogen [Mass/Vol] 23.0 mg/dL Critically high 7.0-18.0 [facility] Comment on above: Performed By: #### T MORE HINTON, LIPID ####[facility] [address] [place], [place] [address]Nf. Rc Foster Urea nitrogen/Creatinine [Mass ratio] 23.0 mg/mg Normal [facility] Comment on above: Performed By: #### T MARY JANE, MORE, LIPID ####[facility] [address] [place], [place] [address]Kt. Rc Foster TSHon 03-30-2022 TSH 2.807 uIU/mL Normal 0.358-3.740 [facility] Comment on above: Performed By: #### T MORE HINTON, LIPID ####[facility] [address] [place], [place] [address]St. Rc Foster US THYROIDon 03-30-2022 US THYROID [...] BERNY CANO Date: 2022-03-30 11:03 Normal [facility] MG MAMM SCREEN 3D LEX CADon 03-19-2022 MG MAMM SCREEN 3D LEX CAD Patient: CARROLL HARDEN Exam Date: 03/19/2022 : 1960 Gender:F Ordering : DR ROBERT CRUZ D.O. Admission #: [id number] Family : Order #: [id number] CLICK HERE TO VIEW EXAM RADIOLOGY REPORT [...] Treatments None Family Cancers None LOCATION: [facility] BREAST COMPOSITION: Scattered areas fibroglandular [...] M.D. on 03/23/2022 at 11:59 Normal [facility] CBC AUTO DIFFon 11-27-2021 BASO # 0.0 103/ul Normal 0.0-0.1 [facility] Comment on above: Performed By: #### C BC #### [facility] Laboratory [address] [address] [address] Rc Foster Basophils/100 WBC (Bld) 0.7 % Normal 0.2-2.0 [facility] Comment on above: Performed By: #### C BC #### [facility] [address] [address] [address] Rc Foster EO # 0.6 103/ul Normal 0.0-0.7 [facility] Comment on above: Performed By: #### C BC #### [facility] [address] [place] [address] Dr. Rc Foster Eosinophils/100 WBC (Bld) 10.3 % Critically high 0.9-7.0 [facility] Comment on above: Performed By: #### C BC #### [facility] [address] [place] [address] Dr. Rc Foster Erythrocyte distribution width (RBC) [Ratio] 12.4 % Normal 11.0-15.0 [facility] Comment on above: Performed By: #### C BC #### [facility] [address] [place] [address] Dr. Rc Foster Hematocrit (Bld) [Volume fraction] 41.2 % Normal 36.0-48.0 [facility] Comment on above: Performed By: #### C BC #### [facility] [address] [place] [address] Dr. Rc Foster Hemoglobin (Bld) [Mass/Vol] 13.4 g/dL Normal 12.0-16.0 [facility] Comment on above: Performed By: #### C BC #### [facility] [address] [place] [address] Dr. Rc Foster IG # 0.01 10e3/ul Normal 0.00-0.03 [facility] Comment on above: Performed By: #### C BC #### [facility] [address] [place] [address] Dr. Rc Foster IG % 0.2 % Normal 0.0-0.5 [facility] Comment on above: Performed By: #### C BC #### [facility] [address] [place] [address] Dr. Rc Foster LYMPH # 2.3 103/ul Normal 1.2-3.8 [facility] Comment on above: Performed By: #### C BC #### [facility] [address] [place] [address] Dr. Rc Foster Lymphocytes/100 WBC (Bld) 40.6 % Normal 20.5-60.0 [facility] Comment on above: Performed By: #### C BC #### [facility] [address] [place] [address] Dr. Rc Foster MANUAL DIFF REQ NO Normal [facility] Comment on above: Performed By: #### C BC #### [facility] [address] [place] [address] Dr. Rc Foster MCH (RBC) [Entitic mass] 28.8 pg Normal 26.7-34.0 [facility] Comment on above: Performed By: #### C BC #### [facility] [address] [place] [address] Dr. Rc Foster MCHC (RBC) [Mass/Vol] 32.5 g/dL Normal 29.9-35.2 [facility] Comment on above: Performed By: #### C BC #### [facility] [address] [place] [address] Dr. Rc Foster MCV (RBC) [Entitic vol] 88.6 fL Normal 81.0-99.0 [facility] Comment on above: Performed By: #### C BC #### [facility] [address] [place] [address] Dr. Rc Foster MONO # 0.4 103/ul Normal 0.3-0.8 [facility] Comment on above: Performed By: #### C BC #### [facility] [address] [place] [address] Dr. Rc Foster Monocytes/100 WBC (Bld) 7.6 % Normal 1.7-12.0 [facility] Comment on above: Performed By: #### C BC #### [facility] [address] [place] [address] Dr. Rc Foster NEUT # 2.3 103/ul Normal 1.4-6.5 [facility] Comment on above: Performed By: #### C BC #### [facility] [address] [place] [address] Dr. Rc Foster Neutrophils/100 WBC (Bld) 40.6 % Critically low 43.0-75.0 [facility] Comment on above: Performed By: #### C BC #### [facility] [address] [place] [address] Dr. Rc Foster Platelet mean volume (Bld) [Entitic vol] 9.6 fL Normal 9.5-13.5 [facility] Comment on above: Performed By: #### C BC #### [facility] [address] [place] [address] Dr. Rc Foster PLT 194 103/ul Normal 150-450 [facility] Comment on above: Performed By: #### C BC #### [facility] [address] [place] [address] Dr. Rc Foster RBC 4.65 106/ul Normal 4.20-5.40 [facility] Comment on above: Performed By: #### C BC #### [facility] [address] [place] [address] Dr. Rc Foster WBC 5.5 103/ul Normal 4.0-11.0 [facility] Comment on above: Performed By: #### C BC #### [facility] [address] [place] [address] Dr. Rc Foster GLYCOHEMOGLOBIN A1Con 2021 ADA RECOMMENDATION SEE BELOW Normal [facility] Comment on above: Result Comment: ADA RECOMMENDED LIMIT 4.0 - 6.0 ADA THERAPEUTIC TARGET < 7.0 ACTION SUGGESTED > 7.0 Performed By: #### A 1C #### [facility] [address] [place] [address] Dr. Rc Foster Glucose [Mass/Vol] 131 mg/dL Normal [facility] Comment on above: Performed By: #### A 1C #### [facility] [address] [place] [address] Dr. Rc Foster HbA1c (Bld) [Mass fraction] 6.2 % Normal 4.5-6.2 [facility] Comment on above: Performed By: #### A 1C #### [facility] [address] [place] [address] Dr. Rc Foster PROF CHEM 8 (BAS METB)on Anion gap [Moles/Vol] 15.2 mmol/L Normal [facility] Comment on above: Performed By: #### T SH, BMP #### [facility] [address] [address] [address] Rc Foster Calcium [Mass/Vol] 8.5 mg/dL Normal 8.5-10.1 [facility] Comment on above: Performed By: #### T SH, BMP #### [facility] [address] [address] [address] Rc Foster Chloride [Moles/Vol] 100 mmol/L Normal 98-107 [facility] Comment on above: Performed By: #### T SH, BMP #### [facility] [address] [address] [address] Rc Foster CO2 [Moles/Vol] 26.6 mmol/L Normal 21.0-32.0 [facility] Comment on above: Performed By: #### T SH, BMP #### [facility] [address] [address] [address] Rc Foster Creatinine [Mass/Vol] 1.15 mg/dL Critically high 0.55-1.02 [facility] Comment on above: Performed By: #### T SH, BMP #### [facility] [address] [address] [address] Rc Foster EGFR-AF CYPRIOT 58 mL/min/1.73m2 Critically low >=60 [facility] Comment on above: Performed By: #### T SH, BMP #### [facility] [address] [address] [address] Rc Foster EGFR-NON AF CYPRIOT 48 mL/min/1.73m2 Critically low >=60 [facility] Comment on above: Performed By: #### T SH, BMP #### [facility] [address] [address] [address] Rc Foster Glucose [Mass/Vol] 211 mg/dL Critically high 74-106 [facility] Comment on above: Performed By: #### T SH, BMP #### [facility] [address] [address] [address] Rc Foster Potassium [Moles/Vol] 4.8 mmol/L Normal 3.5-5.1 [facility] Comment on above: Performed By: #### T SH, BMP #### [facility] [address] [place] [address] Dr. Rc Foster Sodium [Moles/Vol] 137 mmol/L Normal 136-145 [facility] Comment on above: Performed By: #### T SH, BMP #### [facility] [address] [place] [address] Dr. Rc Foster Urea nitrogen [Mass/Vol] 33.0 mg/dL Critically high 7.0-18.0 [facility] Comment on above: Performed By: #### T SH, BMP #### [facility] [address] [place] [address] Dr. Rc Foster Urea nitrogen/Creatinine [Mass ratio] 28.7 mg/mg Normal [facility] Comment on above: Performed By: #### T SH, BMP #### [facility] [address] [place] [address] Dr. Rc Foster TSHon 11-27-2021 TSH 0.744 uIU/mL Normal 0.358-3.740 [facility] Comment on above: Performed By: #### T SH, BMP #### [facility] [address] [place] [address] Dr. Rc Foster SYMPTOMATIC COVID-19 ANTIGEN on 10-28-2021 EUA Statement SEE BELOW Normal [facility] Comment on above: Result Comment: This [...] revoked sooner. Performed By: #### C VDAGS ####[facility] [id number] [place], [place] [address]VtDr. Rc Foster SARS-CoV-2 (COVID-19) RNA YARED+probe Ql (Unsp spec) Negative Normal NEGATIVE [facility] Comment on above: Performed By: #### C VDAGS ####[facility] [id number] [id number][address] Rc Foster GLYCOHEMOGLOBIN A1Con 2021 ADA RECOMMENDATION SEE BELOW Normal [facility] Comment on above: Result Comment: ADA RECOMMENDED LIMIT 4.0 - 6.0 ADA THERAPEUTIC TARGET < 7.0 ACTION SUGGESTED > 7.0 Performed By: #### A 1C #### [facility] [address] [address] [address] Rc Foster Glucose [Mass/Vol] 128 mg/dL Normal [facility] Comment on above: Performed By: #### A 1C #### [facility] [address] [address] [address] Rc Foster HbA1c (Bld) [Mass fraction] 6.1 % Normal 4.5-6.2 [facility] Comment on above: Performed By: #### A 1C #### [facility] [address] [address] [address] Rc Foster Discharge CCD Assessmenton 0 09-06-2020 Discharge CCD Assessment [facility] Patient: CARROLL HARDEN [facility] [place] [address] MR#: [id number] DISCHARGE CCD ASSESSMENT : 58 Service Date: 09/06/20 1018 Discharge CCD Assessment Assessment Patient discharged home to continue exercises, pain medication, and wound care Electronically Signed eSign Date and Time Melyssa Flores 09/06/20 1019 Tera Hernandez MD Normal [facility] GLUCOSE METERon 09-06-2020 Glucose [Mass/Vol] 126 mg/dL High 70-99 [facility] Comment on above: Order Comment: CONSE RVATION Result Comment: Fast ing GLUCOSE reference range has been updated per (ADA) [place] [employer]'s recommendation. 07/18/2018 Performed By: #### L 500.43514 ####Test performed at: [address] [address] Glucose [Mass/Vol] 205 mg/dL High 70-99 [facility] Comment on above: Order Comment: CONSE RVATION Result Comment: Fast ing GLUCOSE reference range has been updated per (ADA) [place] [employer]'s recommendation. 07/18/2018 Insulin per sl scale Performed By: #### L 500.39977 #### Test performed at: [address] [address] Internal Med Progress Noteon 09-06-2020 Internal Med Progress Note [facility] Patient: CARROLL HARDEN [address] [place] [address] MR#: [id number] PROGRESS NOTE - Internal Medicine : 58 [...] ROOM AIR 09/06 06 Temp 36.0 09/06 0620 Resp 18 09/06 06 O2 Flow Rate [...] RES, Katarzy na MD 09/06/20 1134 Normal [facility] Orthopedic Progress Noteon 0 09-06-2020 Orthopedic Progress Note [facility] Patient: CARROLL HARDEN [facility] [place] [address] MR#: [id number] PROGRESS NOTE - Orthopedic : 58 Service [...] RN 09/06/20 1022 Tera Hernandez MD Normal [facility] Anesthesia Noteon 09-05-2020 Anesthesia Note [facility] Patient: CARROLL HARDEN [address] [place] [address] MR#: [id number] ANESTHESIA NOTE : Service Date: 09/05/20811 Post-anesthesia [...] Electronically Signed eSign Date and Time Krystian Akesr CERTIFIED HEALTH EDUCATION SPECIALIST-BRIEF WRITER 09/05/20 0813 Chu Glez MD Normal [facility] BASIC MET PANELon 09-05-2020 Anion gap [Moles/Vol] 12 mmol/L Normal 6-18 [facility] Comment on above: Performed By: #### L 500.93460, L500.81822 #### Test performed at: [address] [address] Calcium [Mass/Vol] 8.7 mg/dL Normal 8.5-10.1 [facility] Comment on above: Performed By: #### L 500.25018, L500.92468 #### Test performed at: [address] [address] Chloride [Moles/Vol] 101 mmol/L Normal 98-107 [facility] Comment on above: Performed By: #### L 500.15533, L500.05854 #### Test performed at: [address] [address] CO2 [Moles/Vol] 25 mmol/L Normal 21-32 [facility] Comment on above: Performed By: #### L 500.08810, L500.24315 #### Test performed at: [address] [address] Creatinine [Mass/Vol] 1.020 mg/dL Normal 0.550-1.020 [facility] Comment on above: Performed By: #### L 500.72258, L500.44181 #### Test performed at: [address] [address] Glucose [Mass/Vol] 264 mg/dL High 70-99 [facility] Comment on above: Result Comment: Fast ing GLUCOSE reference range has been updated per (ADA) [place] [employer]'s recommendation. 07/18/2018 Performed By: #### L 500.25951, L500.87222 #### Test performed at: [address] [address] OSM 289 mosm/kg Normal 270-300 [facility] Comment on above: Performed By: #### L 500.06161, L500.16328 #### Test performed at: [address] [address] Potassium [Moles/Vol] 4.5 mmol/L Normal 3.5-5.1 [facility] Comment on above: Performed By: #### L 500.77712, L500.52067 #### Test performed at: [address] [address] Sodium [Moles/Vol] 134 mmol/L Low 136-145 [facility] Comment on above: Performed By: #### L 500.07013, L500.78245 #### Test performed at: [address] [address] Urea nitrogen [Mass/Vol] 17 mg/dL Normal 7-18 [facility] Comment on above: Performed By: #### L 500.45064, L500.87839 #### Test performed at: [address] [address] GFR ESTIMATEon 09-05-2020 IF AMER > 60 Normal > 60 [facility] Comment on above: Result Comment: eGFR (Estimated GFR) Units of measure:mL/min/1.73 meters sq. *CALCULATION REVISED 02/11/2015;IDMS-traceable MDRD equation eGFR is derived from the reexpressed MDRD Study equation using the following parameters: serum creatinine, age, gender and race. An eGFR<60 mL/min/1.73m2 for >3 months is consistent with chronic kidney disease. Refer to KDOQI guidelines for clinical interpretation. Performed By: #### L 500.52170, L500.57213 #### Test performed at: [address] [place] [address] IF non-AFR AMER 55 Low > 60 [facility] Comment on above: Performed By: #### L 500.82884, L500.37878 #### Test performed at: [address] [place] [address] GLUCOSE METERon 09-05-2020 Glucose [Mass/Vol] 177 mg/dL High 70-99 [facility] Comment on above: Order Comment: CONSE RVATION Result Comment: Fast ing GLUCOSE reference range has been updated per (ADA) [place] Diabetes [employer]'s recommendation. 07/18/2018 Performed By: #### L 500.35221 #### Test performed at: [address] [address] Glucose [Mass/Vol] 310 mg/dL High 70-99 [facility] Comment on above: Result Comment: Fast ing GLUCOSE reference range has been updated per (ADA) [employer] Diabetes [employer]'s recommendation. 07/18/2018 Insulin per sl scale Performed By: #### L 500.74588 ####Test performed at: [address] [address] Glucose [Mass/Vol] 281 mg/dL High 70-99 [facility] Comment on above: Result Comment: Fast ing GLUCOSE reference range has been updated per (ADA) [employer]'s recommendation. 07/18/2018 Insulin per sl scale Performed By: #### L 500.28216 #### Test performed at: [address] [address] [address] [place] [address] Glucose [Mass/Vol] 105 mg/dL High 70-99 [facility] Comment on above: Result Comment: Fast ing GLUCOSE reference range has been updated per (ADA) [employer]'s recommendation. 07/18/2018 Performed By: #### L 500.17401 #### Test performed at: [address] [address] HGB AND HCTon 09-05-2020 Hematocrit (Bld) [Volume fraction] 37.5 % Normal 36.0-48.0 [facility] Comment on above: Performed By: #### L 200.42868 #### Test performed at: [address] [address] Hemoglobin (Bld) [Mass/Vol] 12.5 g/dL Normal 12.0-15.0 [facility] Comment on above: Performed By: #### L 200.41987 #### Test performed at: [address] [address] Internal Med Progress Noteon 09-05-2020 Internal Med Progress Note [facility] Patient: CARROLL HARDEN [address] [place] [address] MR#: [id number] PROGRESS NOTE - Internal Medicine : 58 [...] input. Disc (more content not included)... Normal [facility] OT Therapy Recommendationson 09-05-2020 OT Therapy Recommendations [facility] Patient: CARROLL HARDEN [address] [place] [address] MR#: [id number] OT THERAPY RECOMMENDATIONS : 58 Service Date: 09/05/20 1511 Therapy Recommendations Therapy Recommendations Recommendations OT evaluation completed. OT recommends HOME with FAmily assist. No further acute OT needs are indicated at this time. Electronically Signed eSign Date and Time Trupti Rojas OT 09/05/20 1512 Normal [facility] Orthopedic Progress Noteon 0 09-05-2020 Orthopedic Progress Note [facility] Patient: CARROLL HARDEN [address] [place] [address] MR#: [id number] PROGRESS NOTE - Orthopedic : 58 Service [...] eSign Date and Time RUBEN KHAN 09/05/20 1813 Tera Hernandez MD Normal [facility] PT Therapy Recommendationson 09-05-2020 PT Therapy Recommendations [facility] Patient: CARROLL HARDEN [address] [id number] MR#: [id number] PT THERAPY RECOMMENDATIONS : 58 Service Date: 09/05/20 0914 Therapy Recommendations Therapy Recommendations Recommendations PT eval complete. No further acute PT needs. Recommend d/c home /c family assist. Electronically Signed eSign Date and Time Tiffanie Bashir PT 09/05/20 0914 Normal [facility] z OT Inpatient Discharge Not juan 09-05-2020 z OT Inpatient Discharge Note [facility] Patient: CARROLL HARDEN [address] [place], [place] [id number] MR#: [id number] OT INPATIENT DISCHARGE NOTE : 58 Service [...] Time Trupti Rojas OT 09/05/20 1534 Normal [facility] z OT Inpatient Evaluationon 09-05-2020 z OT Inpatient Evaluation [facility] Patient: CARROLL HARDEN [address] [place], [place] [id number] MR#: [id number] OT INPATIENT EVALUATION : 58 Inpatient OT HPI Date of Service 09/05/20 Time In: 1401 Time Out: 1412 Total Treatment Time (Mins) 11 Visit Reason LATERAL RECESS STENOSIS W/ RADICULOPATHY Surgery Type/Date s/p L L4-5 LAmi, foraminotomy, decompression on 09.04.20/ Lumbar spine precautions Referral Date 09/04/20 Tx Diagnosis: LOW BACK PAIN [facility] Hospital Course Pt is a [...] 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 Objective Precautions Lumbar Spine [...] Excellent Nader (more content not included)... Normal [facility] z PT Inpatient Discharge Not juan 09-05-2020 z PT Inpatient Discharge Note [facility] Patient: CARROLL HARDEN [address] [address] MR#: [id number] PT INPATIENT DISCHARGE NOTE : 58 Service [...] Time Tiffanie Bashir PT 09/05/20 1139 Normal [facility] z PT Inpatient Evaluationon 09-05-2020 z PT Inpatient Evaluation [facility] Patient: CARROLL HARDEN [address] [place] [address] MR#: [id number] PT INPATIENT EVALUATION : 58 Service Date: 09/05/20 09 Inpatient PT HPI Date of Service 09/05/20 Time In: 0845 Time Out: 0907 Total Treatment Time (Mins) 22 Room Number 624 Visit Reason LATERAL RECESS STENOSIS W/ RADICULOPATHY Surgery Type: L L4-5 lami, foraminotomy, decompression Surgery Date: 09/04/20 Referral Date 09/04/20 Tx Diagnosis: LOW BACK PAIN Insurance Name [employer] O POS [facility] Hospital Course 60 y.o female at [facility] for above sx d/t lateral recess [...] posture. Improved stability noted /c single UE support/EXAM PROCTOR. Pt agreeable to use of her cane [...] Time Tiffanie Bashir PT 09/05/20 1502 Normal [facility] GLUCOSE METERon 09-04-2020 Glucose [Mass/Vol] 94 mg/dL Normal 70-99 [facility] Comment on above: Result Comment: Fast ing GLUCOSE reference range has been updated per (ADA) [place] [employer]'s recommendation. 07/18/2018 Performed By: #### L 500.68480 ####Test performed at: [place] [address] Internal Medicine Consultati onon 09-04-2020 Internal Medicine Consultation [facility] Patient: CARROLL HARDEN [address] [place] [address] MR#: [id number] CONSULTATION - Internal Medicine : 58 Service [...] MATHUR on 12/11/1820 Last Action: Reviewed on 09/04/20 105 by [...] MATHUR on 12/11/1819 Last Action: Reviewed on 09/04/20 105 by LUZ CABELLO Glimepiride * (Amaryl *) [...] Reviewed on 09/04/20 105 by LUZ CABELLO Metformin HCl (Glucophage) 500 [...] of Systems (more content not included)... Normal [facility] OPERATIVE REPORTon OPERATIVE REPORT NAME: CARROLL HARDEN MR#: [id number] SURGEON: Tera Hernandez MD DATE OF SURGERY: [...] there were no complications. TERA HERNANDEZ MD [facility] PT NAME: CARROLL HARDEN MR#: [id number] [address] [place], [place] [id number] ACCT: [id number] : 58 OPERATIVE REPORT [id number] E/S: Tera Hernandez MD 09/18/20 1207 Electronically Signed [facility] PT NAME: CARROLL HARDEN MR#: [id number] [address] [place], [place] [id number] ACCT: [id number] : 58 OPERATIVE REPORT Normal [facility] Primary Residenton Primary Resident [facility] Pt Name: CARROLL HARDEN MR#: [id number] [address] [place] [address] ACCT: [id number] [address] [place] [id number] : 58 Service Date: 09/04/20 1603 Primary Resident/Call Primary Resident: [id number] After Hours Call: [phone] Red Team Electronically Signed eSign Date and Time Ana Flanagan RES 09/16/20 1521 Normal [facility] LUMBAR SPINE 2 OR 3 VIEWSon 09-03-2020 LUMBAR SPINE 2 OR 3 VIEWS STUDY: LUMBAR SPINE 2 OR 3 VIEWS; 09/04/2020 2:57 pm INDICATION: LEFT L4-L5 LAMINECTOMY,FORAMINOT JOSE ANGEL,DECOMPRESSION. COMPARISON: None. ACCESSION NUMBER(S): [id number] ORDERING CLINICIAN: Tera Hernandez FINDINGS: Intraoperative fluoroscopy of the lumbar spine demonstrates surgical instruments posterior to L5. IMPRESSION: As above Normal [facility] CHEST PA/AP & LATERALon CHEST PA/AP & LATERAL STUDY: CHEST PA/AP LATERAL; 08/25/2020 11:00 am INDICATION: SOB/PAT. COMPARISON: None. ACCESSION NUMBER(S): [id number] ORDERING CLINICIAN: Madelyn Leslie FINDINGS: The lungs are clear without pleural effusion. Normal heart size, mediastinum, elzbieta, and pulmonary vasculature. IMPRESSION: No active disease in the chest. Normal [facility] CONSULTATION REPORTon 2020 CONSULTATION REPORT NAME: CARROLL HARDEN MR#: [id number] SUBCONTRACT ADMINISTRATOR: Madelyn Leslie MD DATE OF CONSULTATION: 08/25/2020 [...] pulse ox is 98% on room air. [facility] PT NAME: CARROLL HARDEN MR#: [id number] [address] [place] [address] ACCT: [id number] : 58 CONSULTATION HEENT: Atraumatic head. 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 IMPRESSION: 1. Preop clearance for L4-L5 disk [...] courtesy of this consultation. MADELYN LESLIE MD MS/MODL/[id number] E/S: Madelyn Leslie MD 08/26/20 0802 Electronically Signed [facility] PT NAME: CARROLL HARDEN MR#: [id number] [address] [place] [address] ACCT: [id number] : 58 CONSULTATION Normal [facility] LUMB SP COMP W FLEX/EXT 6 VW S>on 08-08-2020 LUMB SP COMP W FLEX/EXT 6 VWS> STUDY: LUMB SP COMP W FLEX/EXT 6 VWS>; 08/08/2020 9:43 am INDICATION: BACK PAIN. COMPARISON: No available comparisons. ACCESSION NUMBER(S): [id number] ORDERING CLINICIAN: Tera Hernandez TECHNIQUE: 6 views [...] L5-S1 level. No evidence of instability.. Normal [facility] XR SHLDR >/=3V AP/RUSH AP/OTH R [...] Jul 03 2018 10:17AM EST [id number] N [facility] ANES Holly 06-20-2018 ANES POST HNO ID: [id number] Author: Rohit Velarde Service: Anesthesiology Author Type: [...] 20, 2018 TIME: 2:38 PM PAGER/CONTACT #: [facility] ANES PREOPon 06-20-2018 ANES PREOP HNO ID: [id number] Author: Rohit Velarde Service: Anesthesiology Author Type: [...] 1964 - REVISE MEDIAN N/CARPAL TUNNEL SURG 1989's bilateral - SEPTOPLASTY 2000 and multiple other [...] June 20, 2018 TIME: 9:35 AM CSN: [id number] [facility] BRIEF OP NOTon 06-20-2018 BRIEF OP NOT HNO ID: [id number] Author: Kusum Francisco Service: Orthopaedic Surgery Author Type: Resident Type: Brief Op Note Filed: 06/20/2018 5:49 PM Note Text: BRIEF OP NOTE LOG ID: [id number] Surgery/Procedure Date: 06/20/2018 Incision/Procedure Start Time: 11:18 AM Incision Close/Procedure End Time: 1:17 PM Surgeon(s)/Procedural ist(s) and Washing Machine Striper(s): Surgeon(s) and Role: * Jenna Lentz - [...] 20, 2018 TIME: 5:49 PM PAGER/CONTACT #: [facility] CASE MANAGEMon 06-20-2018 CASE MANAGEM HNO ID: [id number] Author: May Herrera (Sw) Service: Care Management Author Type: [employer] Engraver Hand Type: Care Mgt Progress Note Filed: 06/20/2018 [...] is pcp summary of care sent via [employer] () Nurse to provide discharge instructions. TRANSPORTATION ARRANGEMENTS: Car Spouse ADDITIONAL CONTACT RESOURCES: Needs Prior to Discharge: Ready for Discharge Appointments for Next 45 Days Date Time Provider Location Dept Phone 07/03/2018 10:00 AM CAROLA BAPTISTE AT [phone] 07/03/2018 10:30 AM GABRIEL CANTU) LATOSHA AT [phone] 07/31/2018 2:15 PM JENNA LENTZ AT [phone] Pt to be discharged home to follow up as above. SIGNATURE: DARIO Saini PATIENT NAME: Carroll Harden DATE: June 20, 2018 TIME: 5:31 PM PAGER/CONTACT #: [id number] [facility] CASE MGT INIT ASSESon 2018 CASE MGT INIT ASSROCHELLE HNO ID: [id number] Author: May Herrera (Sw) Service: Care Management Author Type: [employer] Engraver Hand Type: Care Mgt Initial Assessment Filed: 06/20/2018 [...] None Has the Patient Been in a [facility] Facility in the Past 30 days? 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 O.Therapy recommend home. Spouse visiting at bedside and will transport pt home later today.Further discharge needs not anticipated.SW/TCC to follow to assist with plans for discharge. SIGNATURE: DARIO Saini PATIENT NAME: Carroll Harden DATE: June 20, 2018 TIME: 5:27 PM PAGER/CONTACT #: [id number] [facility] CONSULTon 06-20-2018 CONSULT HNO ID: [id number] Author: Dulce Green Service: General Internal Medicine Author Type: Nurse Practitioner Type: Consults Filed: 06/20/2018 4:44 PM Note Text: HISTORY AND PHYSICAL EXAMINATION PATIENT NAME: Carroll Haredn SERVICE DATE: 06/20/2018 SERVICE TIME: 410pm PRIMARY [...] Disp: Rfl: 06/19/2018 at 0630 rizatriptan (MAXALT SEISMOGRAPHER) 10 mg disintegrating tablet DISSOLVE 1 TABLET [...] the care of your patient. Dulce Green APRN.BACK DIGGER OPERATOR June 20, 2018 4:34 PM Normal [facility] NURSING PROGon 06-20-2018 Protein mass conc HNO ID: [id number] Author: Fela (Rn) FLETCHER Phillips Service: (none) Author Type: Registered Nurse Type: Nursing Progress Note Filed: 06/20/2018 7:39 PM Note Text: Nursing Progress Note Patient Name: Carroll Harden Patient Location: [place] [address] Daily Note: 1545. Care assumed. Pt [...] at bedside. 1720. Dr. Blake and Dulce INDUSTRIAL CUSTODIAN at bedside, plan is to stay for [...] note was completed by: Fela Phillips RN [facility] Protein mass conc HNO ID: [id number] Author: Wendy ValenciaRn) FLETCHER Underwood Service: Nursing Author Type: Registered Nurse Type: Nursing Progress Note Filed: 06/20/2018 10:20 AM Note Text: Nursing Progress Note Patient Name: Carroll Harden Patient Location: SURGERY [facility]/ S* Daily Note:Right interscalene nerve block with ultrasound guidance with Dr. Velarde and Dr. Marlow at bedside. Patient tolerated procedure well, VSS, will continue to monitor as we wait for OR team. Resting comfortably with no complaints of pain at this time. This note was completed by: Wendy Underwood RN [facility] OPERATIVE NOon 06-20-2018 OPERATIVE NO HNO ID: [id number] Author: Jenna Lentz Service: Orthopaedic Surgery Author Type: Physician Type: Operative Report Filed: 06/20/2018 1:25 PM Note Text: [place] [address] [place] OPERATIVE REPORT NAME: Carroll Harden [facility] #: [id number] DATE: 06/20/2018 (11:18am-1:17pm) AGE: 58 SURGEON 1: Jenna Lentz M.D. ACCOUNTING POLICY CONSULTANT: 1. Augie Coates M.D. 2. Kusum Prasad M.D. 3. Mundo Pablo OPERATION: Right total shoulder arthroplasty, biceps tenodesis. ANESTHESIA: General anesthesia with regional interscalene nerve block for postoperative pain control. PREOPERATIVE DIAGNOSIS: Right shoulder primary glenohumeral osteoarthritis. POSTOPERATIVE DIAGNOSIS: Right shoulder primary glenohumeral osteoarthritis, biceps tendinopathy. OPERATIVE INDICATIONS: The patient is a 58 year oldjtt-vomk-cod right-hand dominant white female who has a [...] rotator interval stitch was then passed in meyexz-qy-ywlgq fashion with a #2 Ticron suture and tied down to close the lateral rotator interval and set the osteotomy superiorly. The two #2 Fiberwire sutures coming out of the bicipital groove were then sequentially passed in a msgaga-gx-kchxv fashion medial to the horizontal mattress and [...] none COMPLICATIONS: none apparent Jenna Lentz M.D. [facility] PT EDon 06-20-2018 PT ED HNO ID: [id number] Author: Cindy ValenciaRn) FLETCHER Griffin Service: (none) [...] Signed By: Cindy Griffin RN In Department: [facility] SURGICAL SERVICES [facility] THERAPY NTon 06-20-2018 THERAPY NT HNO ID: [id number] Author: Abi ValenciaOtTyesha Phillips Service: Occupational Therapy Author Type: Occupational Therapist Type: Therapy (PT/OT/Speech/Resp) Filed: 06/20/2018 4:59 PM Note Text: Occupational Therapy Evaluation SERVICE DATE: 06/20/2018 SERVICE TIME: 1550 to 1640 ROOM: [facility] [id number]-[id number] Recommended Discharge Disposition: Home Anticipated Discharge Needs: [...] living (ADL) Interventions Provided: Evaluation;Therapeuti c Exercise (87844);Self Fci Management (76181) $ Evaluation-Low (30452) Billed Units: 1 unit Therapeutic Exercise (70657) Treatment Minutes: 10 1 unit Skilled Intervention(s): Education in Self Fci Management (28681) Treatment Minutes: 28 2 units Skilled Intervention(s): [...] Environment Patient Lives With: Spouse Assistance Available: apns Number Of Stairs To Bed/Bath: 0 Equipment [...] DATE: June 20, 2018 TIME: 4:54 PM [facility] XR SHOULDER 2V AP/TRUE AP [...] Jun 20 2018 2:04PM EST [id number] [facility] NURSING PROGon 06-09-2018 Protein mass conc HNO ID: [id number] Author: Ivana (Rn) FLETCHER Heller Service: Nursing [...] 2018 11:10 AM Addendum 06/15/18 EKG IN [facility] FINAL Ivana Heller RN June 15, 2018 4:39 PM Normal [facility] Type and SCR (30D)on 019 ABO/RH(D) Positive Normal [facility] HOSPon 04-28-2018 HOSP Patient:Adalberto Harden MRN: Height:5' 2 (1.575 m) Weight:186 lb (84.369 kg) Outpatient Medications as of 06/20/18: calcium phosphate dibas/vit D3 (VITAMIN D, WITH CALCIUM, ORAL) docusate sodium (COLACE) 100 mg capsule aspirin, enteric coated (ECOTRIN LOW STRENGTH) 81 mg EC tablet oxyCODONE-acetaminoph en (PERCOCET) 5-325 mg tablet rizatriptan (MAXALT SEISMOGRAPHER) 10 mg disintegrating tablet mupirocin (BACTROBAN) 2 [...] 46.0 36.0 Progress Notes (RADIO CT SCAN [facility]): RT Lillian, Tech 06/07/2018 10:04 AM [...] Lillian June 07, 2018 9:54 AM Normal [facility] Vital Signs Date Time Vital Sign Value Performing Clinician Facility 12-20-2023 15:35-0400 Body height 154.94 cm [facility] 12-20-2023 15:35-0400 Body mass index (BMI) [Ratio] 33.8 kg/m2 [facility] 12-20-2023 15:35-0400 Body weight 81.19 kg [facility] 12-20-2023 15:35-0400 Diastolic blood pressure 80 mm[Hg] [facility] 12-20-2023 15:35-0400 Heart rate 78 /min [facility] 12-20-2023 15:35-0400 Respiratory rate 12 /min [facility] 12-20-2023 15:35-0400 Systolic blood pressure 134 mm[Hg] [facility] 04-29-2023 09:00-0500 Body height 154.94 cm Robert Ball Other [facility] Other 04-29-2023 09:00-0500 Body mass index (BMI) [Ratio] 33.14 kg/m2 Robert Ball Other [facility] Other 04-29-2023 09:00-0500 Body weight 79.56 kg Robert Ball Other [facility] Other 04-29-2023 09:00-0500 Diastolic blood pressure 89 mm[Hg] Robert Ball Other [facility] Other 04-29-2023 09:00-0500 Respiratory rate 12 /min Robert Ball Other [facility] Other 04-29-2023 09:00-0500 Systolic blood pressure 155 mm[Hg] Robert Ball Other [facility] Other 12-20-2022 13:45-0400 Body height 154.94 cm Robert Ball Other [facility] Other 12-20-2022 13:45-0400 Body mass index (BMI) [Ratio] 34.12 kg/m2 Robert Ball Other [facility] Other 12-20-2022 13:45-0400 Body weight 81.92 kg Robert Ball Other [facility] Other 12-20-2022 13:45-0400 Diastolic blood pressure 96 mm[Hg] Robert Ball Other [facility] Other 12-20-2022 13:45-0400 Respiratory rate 12 /min Robert Ball Other [facility] Other 12-20-2022 13:45-0400 Systolic blood pressure 179 mm[Hg] Robert Ball Other [facility] Other 08-04-2022 09:45-0400 Body height 154.94 cm [facility] Other [facility] Other 08-04-2022 09:45-0400 Body mass index (BMI) [Ratio] 33.33 kg/m2 [facility] Other [facility] Other 08-04-2022 09:45-0400 Body weight 80.02 kg [facility] Other [facility] Other 08-04-2022 09:45-0400 Diastolic blood pressure 77 mm[Hg] [facility] Other [facility] Other 08-04-2022 09:45-0400 Respiratory rate 12 /min [facility] Other [facility] Other 08-04-2022 09:45-0400 Systolic blood pressure 128 mm[Hg] [facility] Other [facility] Other Encounters Encounter Date Encounter Type Care Provider Facility Start: 12-20-2023 Patient encounter status [facility] Start: 12-20-2023 End: 12-20-2023 ambulatory [facility] Work Phone: Start: 12-20-2023 End: 12-20-2023 Patient encounter procedure [facility] Work Phone: Start: 09-26-2023 End: 09-26-2023 ambulatory Miriam Barron MD Facility:[facility] Start: 08-15-2023 End: 08-15-2023 ambulatory Miriam Barron MD Facility: [facility] Start: 08-08-2023 End: 08-08-2023 ambulatory Miriam Barron MD Facility:[facility] Start: 06-27-2023 End: 06-27-2023 ambulatory Miriam Barron MD Facility: [facility] Start: 06-06-2023 End: 06-06-2023 ambulatory [facility] Start: 06-01-2023 End: 06-01-2023 ambulatory Robert Cruz Other [facility] Other Start: 06-01-2023 Telephone encounter Robert Cruz [facility] Start: 05-23-2023 End: 05-23-2023 ambulatory Miriam Barron MD Facility: [facility] Start: 05-13-2023 End: 05-13-2023 ambulatory Robert Crzu Other [facility] Other Start: 05-13-2023 Telephone encounter Robert Cruz [facility] Start: 05-09-2023 End: 05-09-2023 ambulatory Robert Hamilton Other [facility] Other Start: 05-09-2023 Telephone encounter Robert Cruz [facility] Start: 05-04-2023 End: 05-04-2023 ambulatory Robert Ball Other [facility] Other Start: 05-04-2023 Telephone encounter Robert Cruz [facility] Start: 05-02-2023 End: 05-02-2023 ambulatory Robert Ball Other [facility] Other Start: 05-02-2023 Telephone encounter Robert Cruz [facility] Start: 04-29-2023 End: 04-29-2023 ambulatory Robert Ball Other [facility] Other Start: 04-29-2023 Office outpatient vi sit 15 minutes Robert Cruz [facility] Start: 04-04-2023 End: 04-04-2023 ambulatory Robert Ball Other [facility] Other Start: 04-04-2023 Telephone encounter Robert Ball [facility] Start: 01-24-2023 End: 01-24-2023 ambulatory Robert Ball Other [facility] Other Start: 01-24-2023 Telephone encounter Robert Ball [facility] Start: 12-23-2022 End: 12-23-2022 ambulatory Robert Ball Other [facility] Other Start: 12-23-2022 Telephone encounter Robert Ball [facility] Start: 12-20-2022 End: 12-20-2022 ambulatory Robert Ball Other [facility] Other Start: 12-20-2022 Office outpatient vi sit 15 minutes Robert Ball [facility] Start: 12-17-2022 End: 12-17-2022 ambulatory Robert Ball Other [facility] Other Start: 12-17-2022 Telephone encounter Robert Ball [facility] Start: 11-08-2022 End: 11-08-2022 ambulatory Robert Ball Other [facility] Other Start: 11-08-2022 Telephone encounter Robert Ball [facility] Start: 10-22-2022 End: 10-22-2022 ambulatory Robert Ball Other [facility] Other Start: 10-22-2022 Telephone encounter Robert Ball [facility] Start: 10-13-2022 End: 10-13-2022 ambulatory Robert Ball Other [facility] Other Start: 10-13-2022 Telephone encounter Robert Ball [facility] Start: 09-27-2022 End: 09-27-2022 ambulatory Robert Ball Other [facility] Other Start: 09-27-2022 Telephone encounter Robert Ball [facility] Start: 08-23-2022 End: 08-24-[address] RISHI PARKER Facility:[facility] Start: 08-04-2022 End: 08-04-2022 ambulatory Robert Cruz Other [facility] [employer] Other Start: 08-04-2022 Office outpatient vi sit 25 minutes Robert Cruz [facility] Start: 04-03-2022 Encounter for genera l adult medical examination without abnormal findings DR ROBERT CRUZ [facility] Start: 03-30-2022 End: 03-31-2022 ambulatory [...] End: 07-03-2018 Patient encounter procedure [facility] Start: 06-20-2018 End: 06-20-2018 Evaluation and management of inpatient [facility] Procedures Date Procedure Procedure Detail Performing Clinician Start: 06-07-[address] [facility] Plan of Treatment Date Care Activity Detail Author Comprehensive metabo lic 2000 panel - Serum or Plasma [facility] enter [facility] Payers Date Payer Category Payer Unknown 2022 Blue Cross Blue Shield [id number] 2019 Unknown [id number] 1960 Self-pay [id number] 1959 Unknown [id number] 2.16.84 [id number] 1959 Unknown [id number] 2.16.84 0.1.464694.3.579.2.593 1959 Unknown [id number] 2.16.84 0.1.552666.3.579.2.593 1959 Unknown [id number] 2.16.84 0.1.025559.3.579.2.593 1959 Unknown [id number] 2.16.84 0.1.847858.3.579.2.593 1959 Unknown [id number] 2.16.84 0.1.521654.3.579.2.593 1959 Unknown [id number] 2.16. 840.1.994301.3.579.2.196 1959 Unknown [id number] 2.16. 840.1.246056.3.579.2.196 1959 Unknown [id number] 2.16. 840.1.953278.3.579.2.196 1959 Unknown [id number] 2.16. 840.1.665794.3.579.2.196 1959 Unknown [id number] 2.16. 840.1.599278.3.579.2.196 1959 Unknown [id number] 2.16. 840.1.478354.3.579.2.196 Unknown [id number] 2.16.84 0.1.273171.3.579.2.593 Unknown [facility] [id number] Social History Date Type Detail Facility Sex Assigned At [facility] Other Start: 1960 Sex Assigned At Female F [facility] Clinical Notes 08-04-2022 to 06-01-2023 Note Date [...] and without status migrainosus (ICD-10 - G43.719) [facility] Other 01-15-2024 Evaluation note* Encounter Date Diagnosis Assessment Notes Treatment Notes Treatment Clinical Notes Apr, Intractable chronic migraine without aura and without status migrainosus (ICD-10 - G43.719) [facility] Other 01-08-2024 Evaluation note* Encounter Date Diagnosis Assessment Notes Treatment Notes Treatment Clinical Notes Apr, Intractable chronic migraine without aura and without status migrainosus (ICD-10 - G43.719) [facility] Other 01-05-2024 Evaluation note* Encounter Date Diagnosis [...] Begin Amitriptyline Stop Tizanidine. 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 May want to cut back on [...] Pain in left shoulder (ICD-10 - M25.512) [facility] Other 06-30-2023 Evaluation note* Encounter Date Diagnosis Assessment Notes Treatment Notes Treatment Clinical Notes Sep, Type 2 diabetes mellitus with hyperglycemia, without long-term current use of insulin (ICD-10 - E11.65) [facility] Other 06-05-2023 Evaluation note* Encounter Date Diagnosis Assessment Notes Treatment Notes Treatment Clinical Notes Sep, Candidiasis, intertriginous (ICD-10 - B37.2) [facility] Other 04-12-2023 Evaluation note* Encounter Date Diagnosis [...] use, the patient reduces the risk for UT, CVA, HTN, cardiac dysrhythmias and sudden cardiac [...] Jul, Other specified hypothyroidism (ICD-10 - E03.8) [facility] Other Evaluation noteNo InformationNort [facility] Other Evaluation noteNo assessment information available [facility] Work Phone: History general Narrative - Reported* Type Description [...] LEFT HEART CATHETERIZATION 2016 Hospitalization History SEE [facility] Other History general Narrative - Reported* Type [...] Right knee arthroscopy 10/2022 Hospitalization History SEE [facility] Other Reason for referral (narrative)* Reason Evaluation of right knee pain Diagnosis 1 Strain of right knee , subsequent encounter (Q43.592U) Referral Organization [facility] Referring Provider First Name Robert Referring Provider Last Name Hamilton Referring Provider Specialty Internal Ms yoni Referred Provider Rishi Parker Jr Referred Provider Specialty Orthopedic S urgery Referral Priority Routine [facility] Other Reason for referral (narrative)* Reason Referral for neck pa in Diagnosis 1 Cervicalgia (M54.2) Diagnosis 2 Cervical spondylosis (M47.812) Referral Organization [facility] Referring Provider First Name Robert Referring Provider Last Name Hamilton Referring Provider Specialty Internal Ms yoni Referred Organization [facility] Referred Address [address] [place], [place],[address] Referred Provider Specialty Pain Medicin e Referral Priority Routine General Notes Patient has hx of ce rvical discectomy and fusion and presented w/ persistent neck pain, which radiated upwards causing a headache. She is being referred for treatment with the pain clinic. Clinical Notes Include MRI [facility] Other Summary Purpose Family History Relationship Condition Age at Onset Recorded Date/T babar father Heart disease Unknown Diabetes mellitus Unknown sister Asthma Unknown Advance Directives Advance Directive Response Recorded Date/ Time Advance Directives No December 20, 2023 3:16pm Chief Complaint and Reason for Visit Chief Complaint wellness/migraines, neck pain Additional Source Comments INFORMATION SOURCE (unrecogn ized section and content) DATE CREATED AUTHOR 06/20/2018 [facility] DATE CREATED AUTHOR AUTHOR'S ORGANIZ ATION 07/04/2018 [facility] DATE CREATED AUTHOR AUTHOR'S ORGANIZ ATION 09/18/2020 [facility] DATE CREATED AUTHOR AUTHOR'S ORGANIZ ATION 08/27/2022 [facility] DATE CREATED AUTHOR AUTHOR'S ORGANIZ ATION 10/07/2023 [facility] REASON FOR VISIT (unrecogniz ed section and content) right knee painAdditional Me dicationRefillRefillsNo InformationWants in on TuesdayTBHBPsleep study ordermamm resultsMigrainesLab orderMigrainesMRI resultsmigrainesMigrainesrefills Care Teams (unrecognized sec tion and content) Team Status: Active Member Role Status Dates Nikki Stanton MD Primary Care Provider Active Team Status: Inactive Member Role Status Dates Nikki Stanton MD Primary Care Provider Active S tart: December 20, 2023 End: December 20, 2023 Robert Cruz DO Attending Provider Active Sta rt: December 20, 2023 End: December 20, 2023 Goals (unrecognized section and content) Goals may be documented in a n alternate section FOR RECORDS PERTAINING TO PATIENTS WHO ARE [...] BE BASED ON THE PRIMARY CLINICAL RECORDS. [facility] [employer] [facility]. provides no warranty or guarantee of the accuracy or completeness of information in this document.
[2023-12-27 07:31] LABS: Basophils Absolute Auto 0.1 10^3/uL (0.0-0.1); Eosinophils Absolute Auto 0.4 10^3/uL (0.0-0.7); Eosinophils Percent Auto 8.3 % (0.9-7.0); Hematocrit 39.7 % (36.0-48.0); Hemoglobin 12.9 g/dL (12.0-16.0); Immature Granulocytes Abs Auto 0.02 10^3/uL (0.00-0.03); Immature Granulocytes Pct Auto 0.4 % (0.0-0.5); Lymphocytes Absolute Auto 2.2 10^3/uL (1.2-3.8); Lymphocytes Percent Auto 42.1 % (20.5-60.0); Mean Corpuscular HGB Conc 32.5 g/dL (29.9-35.2); Mean Corpuscular Hemoglobin 28.5 pg (26.7-34.0); Mean Corpuscular Volume 87.8 fL (81.0-99.0); Mean Platelet Volume 9.6 fL (9.5-13.5); Monocytes Absolute Auto 0.3 10^3/uL (0.3-0.8); Monocytes Percent Auto 6.4 % (1.7-12.0); Neutrophils Absolute Auto 2.2 10^3/uL (1.4-6.5); Neutrophils Percent Auto 41.8 % (43.0-75.0); Platelet Count 190 10^3/uL (150-450); Red Blood Count 4.52 10^6/uL (4.20-5.40); Red Cell Distribution Width 11.9 % (11.0-15.0); White Blood Count 5.2 10^3/uL (4.0-11.0)
[2023-12-27 09:02] LABS: Estimated Average Glucose 143 mg/dL; Glycohemoglobin A1C 6.6 % (4.5-6.2)
[2023-12-27 09:17] LABS: Alanine Aminotransferase 36 U/L (14-59); Albumin Globulin Ratio 1.2; Albumin Level 3.7 g/dL (3.4-5.0); Alkaline Phosphatase 61 U/L (46-116); Anion Gap 14.7; Aspartate Amino Transferase 24 U/L (15-37); BUN Creatinine Ratio 19.7; Bilirubin Total 0.6 mg/dL (0.2-1.0); Calcium 9.2 mg/dL (8.5-10.1); Carbon Dioxide 26.8 mmol/L (21.0-32.0); Chloride 101 mmol/L (98-107); Chol HDL Ratio 3.8; Cholesterol 146 mg/dL (<=200); Estimated GFR (African America 56 (>=60); Estimated GFR (Non-African Ame 47 (>=60); Globulin 3.2 g/dL; Glucose 138 mg/dL (74-106); HDL Cholesterol 38 mg/dL (40-60); Potassium 4.5 mmol/L (3.5-5.1); Sodium 138 mmol/L (136-145); Thyroid Stimulating Hormone 0.834 uIU/mL (0.358-3.740); Total Protein 6.9 g/dL (6.4-8.2); Triglycerides 229 mg/dL (<=150); VLDL CHOLESTEROL 45.8 mg/dL
== END 2023-12-27 07:05 | disposition home or self-care (01) ==
LOC: LAB 07:05
PROVIDERS: PCP Internal Medicine; Visit Provider Internal Medicine
DX: Z00.00 Encounter for general adult medical examination without abnormal findings (principal)
CPT/HCPCS: 36415; 80053; 80061; 83036; 84443; 85025

== ENCOUNTER 2024-02-28 12:47 | Outpatient (RCR) | payer BC, SELFPAY | END 2024-02-29 13:31 | disposition home or self-care (01) | LOC: PT 12:47 | PROVIDERS: PCP Internal Medicine; Visit Provider Internal Medicine | DX: M54.2 Cervicalgia (principal); M25.519 Pain in unspecified shoulder | CPT/HCPCS: 97161 ==

== ENCOUNTER 2024-02-28 14:53 | Outpatient (OUT) | payer BC, SELFPAY ==
--- NOTE | 2024-02-28 | US_ITS ---
Patient Name: CARROLL HARDEN MR#: [id number] : 1960 Exam Date: 02/28/2024 Ordering Doctor: DR Robert Cruz D.O. RADIOLOGY REPORT PROCEDURE: MM TOMOSYNTHESIS DIAGNOSTIC BI, 02/28/2024, 14:53 US BREAST RT LIMITED, 02/28/2024, 15:34 COMPARISON: MM TOMOSYNTHESIS SCREENING BI, 04/01/2023. INDICATIONS: Painful Lumpy Right Breast Calculator Name NCI Breast Cancer Risk Assessment Tool 5 Year Breast Cancer Risk 1.60% Lifetime Breast Cancer Risk 6.40% Personal Breast Cancer No Personal Ovarian Cancer No Treatments None Family Cancers None LOCATION: [facility] BREAST COMPOSITION: There are scattered areas of fibroglandular density. FINDINGS: DIAGNOSTIC CATEGORY 2--BENIGN FINDING: Scattered benign-appearing lymph nodes are present. RIGHT BREAST: No significant suspicious finding. No mammographic or ultrasound abnormality to correspond to the palpable abnormality. Further evaluation should be based on clinical and physical exam LEFT BREAST: No significant suspicious finding. RECOMMENDATIONS: ROUTINE MAMMOGRAM AND CLINICAL EVALUATION IN 12 MONTHS. PLEASE NOTE: A NORMAL MAMMOGRAM DOES NOT EXCLUDE THE POSSIBILITY OF BREAST CANCER. A CLINICALLY SUSPICIOUS PALPABLE LUMP SHOULD BE BIOPSIED. Dictated by: Raghav Dash MD on 02/28/2024 at 15:48 Approved by: Raghav Dash MD on 02/28/2024 at 15:50
--- NOTE | 2024-02-28 14:56 | MM_ITS ---
Patient Name: CARROLL HARDEN MR#: [id number] : 1960 Exam Date: 02/28/2024 Ordering Doctor: DR Robert Cruz D.O. RADIOLOGY REPORT PROCEDURE: MM TOMOSYNTHESIS DIAGNOSTIC BI, 02/28/2024, 14:53 US BREAST RT LIMITED, 02/28/2024, 15:34 COMPARISON: MM TOMOSYNTHESIS SCREENING BI, 04/01/2023. INDICATIONS: Painful Lumpy Right Breast Calculator Name NCI Breast Cancer Risk Assessment Tool 5 Year Breast Cancer Risk 1.60% Lifetime Breast Cancer Risk 6.40% Personal Breast Cancer No Personal Ovarian Cancer No Treatments None Family Cancers None LOCATION: [facility] BREAST COMPOSITION: There are scattered areas of fibroglandular density. FINDINGS: DIAGNOSTIC CATEGORY 2--BENIGN FINDING: Scattered benign-appearing lymph nodes are present. RIGHT BREAST: No significant suspicious finding. No mammographic or ultrasound abnormality to correspond to the palpable abnormality. Further evaluation should be based on clinical and physical exam LEFT BREAST: No significant suspicious finding. RECOMMENDATIONS: ROUTINE MAMMOGRAM AND CLINICAL EVALUATION IN 12 MONTHS. PLEASE NOTE: A NORMAL MAMMOGRAM DOES NOT EXCLUDE THE POSSIBILITY OF BREAST CANCER. A CLINICALLY SUSPICIOUS PALPABLE LUMP SHOULD BE BIOPSIED. Dictated by: Raghav Dash MD on 02/28/2024 at 15:48 Approved by: Raghav Dash MD on 02/28/2024 at 15:50
== END 2024-02-28 14:54 | disposition home or self-care (01) ==
LOC: MAMMO 14:54
PROVIDERS: PCP Internal Medicine; Visit Provider Internal Medicine
DX: N64.4 Mastodynia (principal); N63.10 Unspecified lump in the right breast, unspecified quadrant
CPT/HCPCS: 76642; 77066; G0279

== ENCOUNTER 2024-03-30 09:06 | Outpatient (OUT) | payer BC, SELFPAY ==
--- NOTE | 2024-03-30 | XR_ITS ---
[address] [address] Patient Name: CARROLL HARDEN MRN: [id number] date: 1960 Sex: F Assigned Patient Location: Current Patient Location: Accession/Order Number: [id number] Exam Date: 03/30/2024 09:29 Report Date: 04/01/2024 04:34 At the request of: DILEEP LUNA Procedure: XR cervical spine 5V EXAMINATION: XR cervical spine 5V HISTORY: CERVICAL SPINE PAIN COMPARISON: MR cervical spine 05/03/2023 FINDINGS: BONES: No fracture spondylolisthesis. Multilevel mild-moderate degenerative facet arthropathy. Partial osseous fusion of C5-C6, possibly developmental. DISC SPACES: Intervertebral disc spacers C6-C7. Mild-moderate narrowing C4-C5. PARASPINOUS: Negative. No paraspinous abnormality is seen. OTHER: Negative. XR/XR cervical spine 5V IMPRESSION: 1. C6-C7 intervertebral disc spacer. 2. Multilevel mild-moderate degenerative changes. 3. Suspect developmental osseous fusion of C5-C6 vertebral bodies. Electronically authenticated by: BERNY QUISPE Date: 04/01/2024 04:34
== END 2024-03-30 09:07 | disposition home or self-care (01) ==
LOC: EC 09:06
PROVIDERS: PCP Internal Medicine; Visit Provider Orthopaedic Surgery Orthopaedic Surgery of the Spine
DX: M54.2 Cervicalgia (principal); M43.22 Fusion of spine, cervical region
CPT/HCPCS: 72050

== ENCOUNTER 2024-04-02 09:50 | Outpatient (OUT) | payer BC, SELFPAY ==
--- NOTE | 2024-04-02 | XR_ITS ---
The [address] [address] Patient Name: CARROLL HARDEN MRN: [id number] date: 1960 Sex: F Assigned Patient Location: Current Patient Location: Accession/Order Number: [id number] Exam Date: 04/02/2024 09:53 Report Date: 04/02/2024 11:36 At the request of: BERNY RIVERA Procedure: XR shoulder RT min 2V PROCEDURE: XR shoulder RT min 2V DATE: 04/02/2024 9:53 AM EST COMPARISONS: None CLINICAL INDICATION: RIGHT SHOULDER PAIN FINDINGS: There is no evidence of fractures or other acute osseous abnormalities. There is a prosthetic right proximal humerus. This is also noted on wrist 4 all a chest x-ray of 12/17/2022. This prosthesis appears to be in good position and alignment. There is evidence of mild bronchial clavicular degenerative change. XR/XR shoulder RT min 2V IMPRESSION: Right shoulder radiographs show no evidence of acute findings. Electronically authenticated by: LEE ANN SWEENEY Date: 04/02/2024 11:36
== END 2024-04-02 09:51 | disposition home or self-care (01) ==
LOC: EC 09:50
PROVIDERS: PCP Internal Medicine; Visit Provider Orthopaedic Surgery
DX: M25.511 Pain in right shoulder (principal)
CPT/HCPCS: 73030

== ENCOUNTER 2024-04-04 08:11 | Outpatient (OUT) | payer OTHER, SELFPAY ==
--- NOTE | 2024-04-04 08:15 | MR_ITS ---
The [address] [address] Patient Name: CARROLL HARDEN MRN: [id number] date: 1960 Sex: F Assigned Patient Location: MRI Current Patient Location: Accession/Order Number: [id number] Exam Date: 04/04/2024 08:50 Report Date: 04/05/2024 10:29 At the request of: BERNY RIVERA Procedure: MR shoulder RT wo con HISTORY: The patient has a history of prior right total shoulder arthroplasty approximately 5 years ago. Right shoulder pain becoming worse over the past year. Pain with range of motion. MR shoulder RT wo con: 04/04/2024 8:50 AM EST COMPARISON: Radiographs right shoulder 04/02/2024. TECHNIQUE: Multiplanar, multisequence MRI images of the shoulder were obtained. FINDINGS: There is significant susceptibility artifact emanating from the total shoulder prosthesis which degrades evaluation of the majority of the shoulder. There are mild degenerative changes again seen of the acromioclavicular joint. No significant subacromial/subdeltoid bursitis is seen to the extent of visualization. The rotator cuff tendons cannot be visualized due to susceptibility artifact overlying this region. There appears to be at least moderate atrophy of the subscapularis muscle. There is no atrophy of the remainder of the rotator cuff muscles. The visualized bone marrow signal intensity is age appropriate. No focal fluid signal intensity collection is seen. MR/MR shoulder RT wo con IMPRESSION: 1. The majority of the right shoulder cannot be adequately assessed due to significant susceptibility artifact emanating from the total shoulder prosthesis. 2. There is moderate atrophy of the subscapularis muscle which suggests the possibility of an underlying tear of the subscapularis tendon. However, the tendons of the rotator cuff cannot be visualized due to the susceptibility artifact from the total shoulder prosthesis. A CT arthrogram of the right shoulder may be of benefit for further evaluation of the rotator cuff. 3. Mild osteoarthritis of the acromioclavicular joint. Electronically authenticated by: YAIR FRANK Date: 04/05/2024 10:29
--- OUTSIDE RECORDS SUMMARY | 2024-04-04 08:15 | XMS_ITS | CCD ---
Author Organization [facility] Care Team Providers Care Cane Splicer Name Role Phone SUN JENNA T Admitting [...] DR BERNY Mcc[employer] Consult[employer] Unavailable BALL, DR INNO Primary Care Unavailable BALL, DR NINO Admitting [...] adverse reactions to drug (disorder) 09-30-19 11 [facility] Repository (2 sources) HYDROmorphone; Translations: [HYDROMORPHONE (BULK)] Drug Allergy 08-17-19 17 [facility] Repository (20 sources) Latex; Translations: [LATEX] Propensity to adverse reactions to drug (disorder) 09-30-19 11 Unknown, Unknown Reaction [facility] Repository (2 sources) Meperidine; Translations: [MEPERIDINE (PF)] Drug Allergy 09-30-19 11 [facility] Repository (2 sources) Povidone-Iodine; Translations: [POVIDONE-IODINE] Drug Allergy 10-21-19 17 [facility] Repository (2 sources) SUMAtriptan; Translations: [SUMATRIPTAN SUCCINATE] Drug Allergy 09-30-19 11 [facility] Repository (2 sources) INFLUENZA VACCINE TRI-SP 09-10; Translations: [INFLUENZA VACCINE TRI-SP 09-10] Propensity to adverse reactions to drug (disorder) 09-30-19 11 [facility] Repository (3 sources) DHE; Translations: [DHE] Propensity to adverse reactions to drug (disorder) 10-24-19 13 [facility] Repository (19 sources) HYDROmorphone Drug Allergy 12-20-19 24 Unknown, Unknown Reaction [facility] (20 sources) Iodine; Translations: [iodine] Drug Allergy 10-24-19 13 Unknown, Unknown Reaction [facility] Repository (19 sources) Meperidine Drug Allergy 12-20-19 24 Unknown, Unknown Reaction [facility] (19 sources) SUMAtriptan Drug Allergy 12-20-19 24 Unknown, Unknown Reaction [facility] (19 sources) Fluad Drug allergy 12-20-19 24 Unknown, Unknown Reaction [facility] (17 sources) DHEA Drug allergy Unknown [email or web address] Other (1 source) HYDROmorphone Drug Allergy 10-24-19 13 [facility] Repository (1 source) Meperidine Drug Allergy 10-24-19 13 [facility] Repository (1 source) Plasmin Drug Allergy 10-24-19 13 [facility] Repository (12 sources) influenza A virus (H1N1) antigen / influenza A virus (H3N2) antigen / influenza B virus antigen Drug Allergy 11-21-19 14 Comment:FLU VACCINE [facility] [employer] Other (12 sources) Contraindication to Flu Injection Propensity to adverse reactions 03-07-20 14 Comment:advers e rxn/side effects [facility] [employer] Other (3 sources) patient allergy list reviewed by nurse or physicia Propensity to adverse reactions 12-22-19 14 Comment:Done [email or web address] Other (2 sources) Calcium Drug Allergy 12-20-[address] [facility] (2 sources) Calcium Carbonate Drug Allergy 12-20-[address] [facility] (2 sources) prasterone (DHEA) Allergy to substance 12-20-[address] [facility] (2 sources) Fluad Quadrivalent Allergy to substance 04-29-19 Comment:FLU VACCINE [facility] Medications Current Medications Medication Drug Class(es) Dates Sig (Normalized) Sig (Original) atenolol 50 mg oral tablet (19 sources) beta-Adrenergic Maria Esther Start: 12-20-2023 take 50 mg by mouth once daily Atenolol Active 50 MG PO Daily December 20, 2023 12:00am Start: 08-04-2022 take 1 tablet by fredrick th every twenty-four hours Atenolol 50 MG 1 tablet Orally Once a day for 90 days Jul, Active citalopram 40 mg oral tablet (18 sources) Serotonin Reuptake Inhibitor Start: 10-18-2023 End: 10-18-2023 take 40 mg by mouth once daily Citalopram Active 40 MG PO Daily 90 90 October 18, 2023 8:37am Start: 10-22-2022 take 1 tablet by fredrick th every twenty-four hours Citalopram Hydrobromide 40 MG 1 tablet at bedtime Orally Once a day for 90 days Sep, Active clonazePAM 1 mg oral tablet (20 sources) Benzodiazepine Start: 12-20-2023 End: 12-27-2023 take 1.5 mg by mouth once daily at bedtime Clonazepam (Klonopin) 1 mg tablet Active 1.5 MG PO Daily at bedtime 45 December 27, 2023 1:03pm Start: 06-13-2023 End: 12-20-2023 take 1.5 mg [...] AT BEDTIME for 30 days Sep, Active etodolac 500 mg oral tablet (4 sources) Nonsteroidal Anti-inflammatory Drug Start: 01-09-2024 take 500 mg by mouth twice daily Etodolac Active 500 MG PO Twice daily 60 January 09, 2024 1:30pm Start: 12-20-2023 End: 01-09-2024 take 500 mg by mouth twice daily Etodolac Discontinued 500 MG PO Twice daily 30 December 20, 2023 12:00am December 20, 2023 4:16pm fluconazole 100 mg oral tablet (16 sources) Azole Antifungal Start: 09-14-2022 take 1 tablet by mouth every twenty-four hours Fluconazole 100 MG 1 tablet Orally daily for 7 days August, Active glimepiride 4 mg oral tablet (19 sources) Sulfonylurea Start: 12-20-2023 Glimepiride Active 1 [...] Active levothyroxine sodium 0.125 mg oral capsule (19 sources) l-Thyroxine Start: 12-20-2023 take 125 ug by mouth once daily Levothyroxine Active 125 MCG PO Daily December 20, 2023 12:00am Start: 07-26-2022 take 1 tablet by fredrick once daily in the morning Levothyroxine Sodium 125 MCG 1 tablet in the morning on an empty stomach Orally Once a day for 90 days Jul, Active Start: 07-26-2022 take 1 tablet by fredrick once daily in the morning Levothyroxine Sodium 125 MCG 1 tablet in the morning on an empty stomach Orally Once a day Jul, Active Magnesium Aspart,Citrate,Oxide (2 sources) Start: 12-20-2023 take 400 mg by mouth once daily Magnesium Aspart,Citrate,Oxide Active 400 MG PO Daily December 20, 2023 12:00am metFORMIN hydrochloride 500 mg oral tablet (17 sources) Biguanide Start: 12-20-2023 take 1 tablet by mouth twice daily Metformin Active MG PO December 20, 2023 12:00am [employer] tablet with a meal Orally two times daily; Note: Source Status: Taking; Refills: 3; Provider: Hamilton Jones Start: 10-13-2022 take 1 tablet by fredrick twice daily metFORMIN HCl 500 MG 1 tablet with a meal Orally two times daily for 90 days Sep, Active pravastatin sodium 40 mg oral tablet (19 sources) HMG-CoA Reductase Inhibitor Start: 12-20-2023 take [...] Apr, Active rizatriptan 10 mg oral tablet (9 sources) Serotonin-1b and Serotonin-1d Receptor Agonist Start: 12-20-2023 take 3 tablets by mouth every twenty-four hours Rizatriptan (Maxalt) 10 mg tablet Active 10 MG PO EVERY 2-4 HOURS December 20, 2023 12:00am do not exceed 3 doses per 24 hrs Start: 11-04-2022 take 1 tablet by fredrick th every two hours as needed for headache Maxalt-CARE TEAM ASSISTANT 10 MG 1 tablet Orally PRN headache, [...] days Active tiZANidine 4 mg oral capsule (16 sources) Central alpha-2 Adrenergic Agonist Start: 12-16-2023 take 0.5-1 tablets by mouth once daily at bedtime Tizanidine Active 4 MG PO Daily at bedtime 90 90 December 16, 2023 12:52pm take 1/2 to 1 tablet at QHS Start: 06-17-2023 End: 12-16-2023 take 0.5 tablet by mouth once daily at bedtime Tizanidine Discontinued 4 MG PO Daily at bedtime 90 June 17, 2023 1:40pm December 16, 2023 1:19pm take 1/2 tablet at QHS take 0.5-1 tablets b y mouth once daily at bedtime tiZANidine HCl 4 MG TAKE 1/2 TO 1 TABLET BY MOUTH EVERY DAY AT BEDTIME for 90 Active Completed/Discontinued Medications Medication Drug Class(es) Dates Sig (Normalized) Sig (Original) amitriptyline hydrochloride 10 mg oral tablet (9 sources) Tricyclic Antidepressant Start: 12-20-2023 End: 12-20-2023 [...] 1 tablet Orally twice daily Jul, Not-Taking/PRN naratriptan 2.5 mg oral tablet (9 sources) Serotonin-1b and Serotonin-1d Receptor Agonist Start: [...] Active olmesartan medoxomil 20 mg oral tablet (12 sources) Angiotensin 2 Receptor Maria Esther Start: [...] Problem Date Documented Date Episodic/Chronic Anxiety disorders (19 sources) Generalized anxiety disorder; Translations: [Generalized anxiety [...] skin and nail Episodic Nonmalignant breast conditions (19 sources) Lump in left breast; Translations: [Unspecified lump in the left breast, unspecified quadrant] 02-24-2024 Episodic Osteoarthritis (2 sources) Primary osteoarthritis, left [...] Spondylosis; intervertebral disc disorders; other back problems (5 sources) Cervicalgia; Translations: [Neck pain] Episodic Sprains and strains (1 source) Strain [...] Test Name Value Interpretation Reference Range Facility Basophils Auto (Bld) [#/Vol] on 12-27-2023 Basophils (Bld) [#/Vol] 0.1 10 3/uL 0.0-0.1 [facility] Basophils/100 WBC Auto (Bld) on 12-27-2023 Basophils/100 WBC (Bld) 1.0 % 0.2-2.0 [facility] Cholesterol in LDL Calc [Mas s/Vol]on 12-27-2023 Cholesterol in LDL [Mass/Vol] 63.0 mg/dL [facility] Comment on above: <100 mg/dl [id number] 0-129 mg/dl NEAR OR ABOVE [id number] mg/dl BORDERLINE [id number] mg/dl HIGH>190 mg/dl VERY HIGH Cholesterol in VLDL Calc [Ma ss/Vol]on 12-27-2023 Cholesterol in VLDL [Mass/Vol] 45.8 mg/dL [facility] Eosinophils/100 WBC Auto (Bl d)on 12-27-2023 Eosinophils/100 WBC (Bld) 8.3 % High 0.9-7.0 [facility] Erythrocyte distribution wid th Auto (RBC) [Ratio]on 12-27-2023 Erythrocyte distribution width (RBC) [Ratio] 11.9 % 11.0-15.0 [facility] Estimated glomerular filtrat ion rate (GFR) non- Americanon 12-27-2023 GFR/1.73 sq M.predicted among non-blacks MDRD (S/P/Bld) [Vol rate/Area] 47 mL/min/{1.73_m2} Low >=60 [facility] Globulin Calc (S) [Mass/Vol] on 12-27-2023 Globulin (S) [Mass/Vol] 3.2 g/dL [facility] Glucose mean value [Mass/vol ume] in Blood Estimated from glycated hemoglobinon 12-27-2023 Average glucose Estimated from glycated hemoglobin (Bld) [Mass/Vol] 143 mg/dL [facility] Hematocrit Auto (Bld) [Volum e fraction]on 12-27-2023 Hematocrit (Bld) [Volume fraction] 39.7 % 36.0-48.0 [facility] Hemoglobin [Mass/volume] in Bloodon 12-27-2023 Hemoglobin (Bld) [Mass/Vol] 12.9 g/dL 12.0-16.0 [facility] Laboratory - Chemistry and C hemistry - challengeon 12-27-2023 Albumin [Mass/Vol] 3.7 g/dL 3.4-5.0 [facility] ALP [Catalytic activity/Vol] 61 U/L 46-116 [facility] ALT [Catalytic activity/Vol] 36 U/L 14-59 [facility] AST [Catalytic activity/Vol] 24 U/L 15-37 [facility] Bilirubin [Mass/Vol] 0.6 mg/dL 0.2-1.0 [facility] Calcium [Mass/Vol] 9.2 mg/dL 8.5-10.1 [facility] Chloride [Moles/Vol] 101 mmol/L 98-107 [facility] Cholesterol [Mass/Vol] 146 mg/dL <=200 [facility] Cholesterol in HDL [Mass/Vol] 38 mg/dL Low 40-60 [facility] Comment on above: > or =60 mg/dl - LOW CARDIOVASCULAR RISK<40 mg/dl - HIGH CARDIOVASCULAR RISK CO2 [Moles/Vol] 26.8 mmol/L 21.0-32.0 [facility] Creatinine [Mass/Vol] 1.17 mg/dL High 0.55-1.02 [facility] GFR/1.73 sq M.predicted MDRD (S/P/Bld) [Vol rate/Area] 56 mL/min/{1.73_m2} Low >=60 [facility] Glucose [Mass/Vol] 138 mg/dL High 74-106 [facility] Potassium [Moles/Vol] 4.5 mmol/L 3.5-5.1 [facility] Protein [Mass/Vol] 6.9 g/dL 6.4-8.2 [facility] Sodium [Moles/Vol] 138 mmol/L 136-145 [facility] Triglyceride [Mass/Vol] 229 mg/dL High <=150 [facility] TSH Qn 0.834 m[IU]/L 0.358-3.740 [facility] Urea nitrogen [Mass/Vol] 23.0 mg/dL High 7.0-18.0 [facility] Urea nitrogen/Creatinine [Mass ratio] 19.7 mg/mg [facility] Laboratory - Hematology and Cell countson 12-27-2023 HbA1c (Bld) [Mass fraction] 6.6 % High 4.5-6.2 [facility] Comment on above: ADA RECOMMENDED LIMI T 4.0 - 6.0ADA THERAPEUTIC TARGET < 7.0ACTION SUGGESTED> 7.0 Immature granulocytes/100 WBC (Bld) 0.4 % 0.0-0.5 [facility] Leukocytes [#/volume] correc chip for nucleated erythrocytes in Blood by Automated counon 12-27-2023 WBC corrected for nucl RBC Auto (Bld) [#/Vol] 5.2 10 3/uL 4.0-11.0 [facility] Lymphocytes Auto (Bld) [#/Vo l]on 12-27-2023 Lymphocytes (Bld) [#/Vol] 2.2 10 3/uL 1.2-3.8 [facility] Lymphocytes/100 WBC Auto (Bl d)on 12-27-2023 Lymphocytes/100 WBC (Bld) 42.1 % 20.5-60.0 [facility] MCH Auto (RBC) [Entitic mass ]on 12-27-2023 MCH (RBC) [Entitic mass] 28.5 pg 26.7-34.0 [facility] MCHC Auto (RBC) [Mass/Vol]on 12-27-2023 MCHC (RBC) [Mass/Vol] 32.5 g/dL 29.9-35.2 [facility] MCV Auto (RBC) [Entitic vol] on 12-27-2023 MCV (RBC) [Entitic vol] 87.8 fL 81.0-99.0 [facility] Monocytes Auto (Bld) [#/Vol] on 12-27-2023 Monocytes (Bld) [#/Vol] 0.3 10 3/uL 0.3-0.8 [facility] Monocytes/100 WBC Auto (Bld) on 12-27-2023 Monocytes/100 WBC (Bld) 6.4 % 1.7-12.0 [facility] Neutrophils Auto (Bld) [#/Vo l]on 12-27-2023 Neutrophils (Bld) [#/Vol] 2.2 10 3/uL 1.4-6.5 [facility] Neutrophils/100 WBC Auto (Bl d)on 12-27-2023 Neutrophils/100 WBC (Bld) 41.8 % Low 43.0-75.0 [facility] No Panel Informationon 12-26 Eosinophils # (Auto) 0.4 10 3/uL 0.0-0.7 [facility] Immature Granulocyte # (Auto) 0.02 10 3/uL 0.00-0.03 [facility] Platelet mean volume Auto (B ld) [Entitic vol]on 12-27-2023 Platelet mean volume (Bld) [Entitic vol] 9.6 fL 9.5-13.5 [facility] Platelets Auto (Bld) [#/Vol] on 12-27-2023 Platelets (Bld) [#/Vol] 190 10 3/uL 150-450 [facility] RBC Auto (Bld) [#/Vol]on RBC (Bld) [#/Vol] 4.52 10 6/uL 4.20-5.40 [facility] Serum or plasma albumin/glob ulin mass ratioon 12-27-2023 Albumin/Globulin [Mass ratio] 1.2 {ratio} [facility] Serum or plasma anion gap de terminationon 12-27-2023 Anion gap [Moles/Vol] 14.7 mmol/L [facility] Serum or plasma total choles terol/high density lipoprotein (HDL) cholesterol mass desiree 12-27-2023 Cholesterol.total/Chol esterol in HDL [Mass ratio] 3.8 {ratio} [facility] Comment on above: 3.3 - 4.4 LOW RISK4. 4 - 7.1 AVERAGE RISK7.1 - 11.0 MODERATE RISK>11.0 HIGH RISK MRI KNEE RT WO CONon 023 MRI [...] BERNY CANO Date: 2022-08-24 07:19 Normal [facility] CBC AUTO DIFFon 03-30-2022 BASO # 0.0 103/ul Normal 0.0-0.1 [facility] Comment on above: Performed By: #### C BC #### [facility] [address] [address] [address] Rc Foster Basophils/100 WBC (Bld) 0.4 % Normal 0.2-2.0 [facility] Comment on above: Performed By: #### C BC #### [facility] [address] [place] [address] Dr. Rc Foster EO # 0.3 103/ul Normal 0.0-0.7 [facility] Comment on above: Performed By: #### C BC #### [facility] [address] [address] [address] Rc Foster Eosinophils/100 WBC (Bld) 4.9 % Normal 0.9-7.0 [facility] Comment on above: Performed By: #### C BC #### [facility] [address] [place] [address] Dr. Rc Foster Erythrocyte distribution width (RBC) [Ratio] 12.2 % Normal 11.0-15.0 [facility] Comment on above: Performed By: #### C BC #### [facility] [address] [place] [address] Dr. Rc Foster Hematocrit (Bld) [Volume fraction] 39.8 % Normal 36.0-48.0 [facility] Comment on above: Performed By: #### C BC #### [facility] [address] [place] [address] Dr. Rc Foster Hemoglobin (Bld) [Mass/Vol] 13.1 g/dL Normal 12.0-16.0 [facility] Comment on above: Performed By: #### C BC #### [facility] [address] [place] [address] Dr. Rc Foster IG # 0.02 10e3/ul Normal 0.00-0.03 [facility] Comment on above: Performed By: #### C BC #### [facility] [address] [place] [address] Dr. Rc Foster IG % 0.4 % Normal 0.0-0.5 [facility] Comment on above: Performed By: #### C BC #### [facility] [address] [place] [address] Dr. Rc Foster LYMPH # 2.1 103/ul Normal 1.2-3.8 [facility] Comment on above: Performed By: #### C BC #### [facility] [address] [place] [address] Dr. Rc Foster Lymphocytes/100 WBC (Bld) 37.1 % Normal 20.5-60.0 [facility] Comment on above: Performed By: #### C BC #### [facility] [address] [place] [address] Dr. Rc Foster MANUAL DIFF REQ NO Normal [facility] Comment on above: Performed By: #### C BC #### [facility] [address] [place] [address] Dr. Rc Foster MCH (RBC) [Entitic mass] 28.7 pg Normal 26.7-34.0 [facility] Comment on above: Performed By: #### C BC #### [facility] [address] [place] [address] Dr. Rc Foster MCHC (RBC) [Mass/Vol] 32.9 g/dL Normal 29.9-35.2 [facility] Comment on above: Performed By: #### C BC #### [facility] [address] [place] [address] Dr. Rc Foster MCV (RBC) [Entitic vol] 87.1 fL Normal 81.0-99.0 [facility] Comment on above: Performed By: #### C BC #### [facility] [address] [place] [address] Dr. Rc Foster MONO # 0.4 103/ul Normal 0.3-0.8 [facility] Comment on above: Performed By: #### C BC #### [facility] [address] [place] [address] Dr. Rc Foster Monocytes/100 WBC (Bld) 6.7 % Normal 1.7-12.0 [facility] Comment on above: Performed By: #### C BC #### [facility] [address] [place] [address] Dr. Rc Foster NEUT # 2.9 103/ul Normal 1.4-6.5 [facility] Comment on above: Performed By: #### C BC #### [facility] [address] [place] [address] Dr. Rc Foster Neutrophils/100 WBC (Bld) 50.5 % Normal 43.0-75.0 [facility] Comment on above: Performed By: #### C BC #### [facility] [address] [place] [address] Dr. Rc Foster Platelet mean volume (Bld) [Entitic vol] 9.7 fL Normal 9.5-13.5 [facility] Comment on above: Performed By: #### C BC #### [facility] [address] [place] [address] Dr. Rc Foster PLT 189 103/ul Normal 150-450 [facility] Comment on above: Performed By: #### C BC #### [facility] [address] [place] [address] Dr. Rc Foster RBC 4.57 106/ul Normal 4.20-5.40 [facility] Comment on above: Performed By: #### C BC #### [facility] [address] [place] [address] Dr. Rc Foster WBC 5.7 103/ul Normal 4.0-11.0 [facility] Comment on above: Performed By: #### C BC #### [facility] [address] [place] [address] Dr. Rc Foster GLYCOHEMOGLOBIN A1Con 2021 ADA RECOMMENDATION SEE BELOW Normal [facility] Comment on above: Result Comment: ADA RECOMMENDED LIMIT 4.0 - 6.0 ADA THERAPEUTIC TARGET < 7.0 ACTION SUGGESTED > 7.0 Performed By: #### A 1C #### [facility] [address] [address] [address] Rc Foster Glucose [Mass/Vol] 143 mg/dL Normal [facility] Comment on above: Performed By: #### A 1C #### [facility] [address] [id number] [address] Rc Foster HbA1c (Bld) [Mass fraction] 6.6 % Critically high 4.5-6.2 [facility] Comment on above: Performed By: #### A 1C #### [facility] [address] [address] [address] Rc Foster LIPID PROFILEon 03-30-2022 CHOL-HDL RATIO NORM SEE BELOW Normal [facility] Comment on above: Result Comment: 3.3 - 4.4 LOW RISK 4.4 - 7.1 AVERAGE RISK 7.1 - 11.0 MODERATE RISK >11.0 HIGH RISK Performed By: #### T SH, CMP, LIPID ####[facility] [id number] [place], [place] [address]Yx. Rc Foster Cholesterol [Mass/Vol] 184 mg/dL Normal <=200 [facility] Comment on above: Performed By: #### T SH, CMP, LIPID ####[facility] [address] [place], [place] [address]Ng. Rc Foster Cholesterol in HDL [Mass/Vol] 42 mg/dL Normal 40-60 [facility] Comment on above: Performed By: #### T SH, CMP, LIPID ####[facility] [id number] [place], [place] [address]Xm. Rc Foster Cholesterol in LDL [Mass/Vol] 87.0 mg/dL Normal [facility] Comment on above: Performed By: #### T SH, CMP, LIPID ####[facility] [address] [place], [place] [address]Ao. Rc Foster Cholesterol.total/Chol esterol in HDL [Mass ratio] 4.4 {ratio} Normal [facility] Comment on above: Performed By: #### T SH, CMP, LIPID ####[facility] [id number] [address]Dr. Rc Foster HDL NORMAL > or = 60 mg/dl - LO W CARDIOVASCULAR RISK <40 mg/dl - HIGH CARDIOVASCULAR RISK Normal [facility] Comment on above: Performed By: #### T SH, CMP, LIPID ####[facility] [address] [address]Dr. Rc Foster LDL CALC NORMAL SEE BELOW Normal [facility] Comment on above: Result Comment: <100 mg/dl OPTIMAL 100 - 129 mg/dl NEAR OR ABOVE OPTIMAL 130 - 159 mg/dl BORDERLINE HIGH 160 - 189 mg/dl HIGH >190 mg/dl VERY HIGH Performed By: #### T SH, CMP, LIPID ####[facility] [id number] [address]Dr. Rc Foster Triglyceride [Mass/Vol] 275 mg/dL Critically high <=150 [facility] Comment on above: Performed By: #### T SH, CMP, LIPID ####[facility] [address] [address]Dr. Rc Foster VLDL CALC 55.0 mg/dL Normal [facility] Comment on above: Performed By: #### T SH, CMP, LIPID ####[facility] [address] [address]Dr. Rc Foster PROF 14(COMP METB)on 022 Albumin [Mass/Vol] 4.0 g/dL Normal 3.4-5.0 [facility] Comment on above: Performed By: #### T SH, CMP, LIPID ####[facility] [address] [address]Dr. Rc Foster Albumin/Globulin [Mass ratio] 1.1 {ratio} Normal [facility] Comment on above: Performed By: #### T SH, CMP, LIPID ####[facility] [address] [address]Dr. Rc Foster ALP [Catalytic activity/Vol] 71 U/L Normal 46-116 [facility] Comment on above: Performed By: #### T SH, CMP, LIPID ####[facility] [address] [id number]. Rc Foster ALT [Catalytic activity/Vol] 29 U/L Normal 14-59 [facility] Comment on above: Performed By: #### T SH, CMP, LIPID ####[facility] [id number] [id number]. Rc Foster Anion gap [Moles/Vol] 13.2 mmol/L Normal [facility] Comment on above: Performed By: #### T SH, CMP, LIPID ####[facility] [address] [address]Dr. Rc Foster AST [Catalytic activity/Vol] 17 U/L Normal 15-37 [facility] Comment on above: Performed By: #### T SH, CMP, LIPID ####[facility] [address] [address]Dr. Rc Foster Bilirubin [Mass/Vol] 0.6 mg/dL Normal 0.2-1.0 [facility] Comment on above: Performed By: #### T SH, CMP, LIPID ####[facility] [facility] [address] [place] [address]Dr. Rc Foster Calcium [Mass/Vol] 9.0 mg/dL Normal 8.5-10.1 [facility] Comment on above: Performed By: #### T SH, CMP, LIPID ####[facility] [address] [place] [address]Dr. Rc Foster Chloride [Moles/Vol] 102 mmol/L Normal 98-107 [facility] Comment on above: Performed By: #### T SH, CMP, LIPID ####[facility] [address] [place] [id number]. Rc Foster CO2 [Moles/Vol] 27.3 mmol/L Normal 21.0-32.0 [facility] Comment on above: Performed By: #### T SH, CMP, LIPID ####[facility] [address] [place] [address]Dr. Rc Foster Creatinine [Mass/Vol] 1.00 mg/dL Normal 0.55-1.02 [facility] Comment on above: Performed By: #### T SH, CMP, LIPID ####[facility] [address] [place] [address]Dr. Rc Foster EGFR-AF IRANIAN >60 Normal >=60 [facility] Comment on above: Performed By: #### T SH, CMP, LIPID ####[facility] [address] [place] [address]Dr. Rc Foster EGFR-NON AF IRANIAN 56 mL/min/1.73m2 Critically low >=60 [facility] Comment on above: Performed By: #### T SH, CMP, LIPID ####[facility] [address] [place] [address]Dr. Rc Foster Globulin (S) [Mass/Vol] 3.5 g/dL Normal [facility] Comment on above: Performed By: #### T SH, CMP, LIPID ####[facility] [address] [place] [address]Dr. Rc Foster Glucose [Mass/Vol] 159 mg/dL Critically high 74-106 [facility] Comment on above: Performed By: #### T SH, CMP, LIPID ####[facility] [address] [place], [place] [address]Dr. Rc Foster Potassium [Moles/Vol] 4.5 mmol/L Normal 3.5-5.1 [facility] Comment on above: Performed By: #### T SH, CMP, LIPID ####[facility] [address] [place] [address]Dr. Rc Foster Protein [Mass/Vol] 7.5 g/dL Normal 6.4-8.2 [facility] Comment on above: Performed By: #### T SH, CMP, LIPID ####[facility] [address] [place], [place] [address]Dr. Rc Foster Sodium [Moles/Vol] 138 mmol/L Normal 136-145 [facility] Comment on above: Performed By: #### T SH, CMP, LIPID ####[facility] [address] [place], [place] [address]Xf. Rc Foster Urea nitrogen [Mass/Vol] 23.0 mg/dL Critically high 7.0-18.0 [facility] Comment on above: Performed By: #### T MORE HINTON, LIPID ####[facility] [address] [place], [place] [address]Rf. Rc Foster Urea nitrogen/Creatinine [Mass ratio] 23.0 mg/mg Normal [facility] Comment on above: Performed By: #### T MARY JANE, CMP, LIPID ####[facility] [address] [place], [place] [address]Fk. Rc Foster TSHon 03-30-2022 TSH 2.807 uIU/mL Normal 0.358-3.740 [facility] Comment on above: Performed By: #### T MORE HINTON, LIPID ####[facility] [address] [place], [place] [address]Kx. Rc Foster US THYROIDon 03-30-2022 US THYROID [...] BERNY CANO Date: 2022-03-30 11:03 Normal [facility] MG MAMM SCREEN 3D LEX CADon 03-19-2022 MG MAMM SCREEN 3D LEX CAD Patient: CARROLL HARDEN Exam Date: 03/19/2022 : 1960 Gender:F Ordering : DR ROBERT CRUZ D.O. Admission #: [id number] Family : Order #: [id number] CLICK HERE TO VIEW EXAM RADIOLOGY REPORT [...] Treatments None Family Cancers None LOCATION: [facility] BREAST COMPOSITION: Scattered areas fibroglandular density. [...] M.D. on 03/23/2022 at 11:59 Normal [facility] CBC AUTO DIFFon 11-27-2021 BASO # 0.0 103/ul Normal 0.0-0.1 [facility] Comment on above: Performed By: #### C BC #### [facility] [address] [address] [address] Rc Foster Basophils/100 WBC (Bld) 0.7 % Normal 0.2-2.0 [facility] Comment on above: Performed By: #### C BC #### [facility] [address] [address] [address] Rc Foster EO # 0.6 103/ul Normal 0.0-0.7 [facility] Comment on above: Performed By: #### C BC #### [facility] [address] [place] [address] Dr. Rc Foster Eosinophils/100 WBC (Bld) 10.3 % Critically high 0.9-7.0 [facility] Comment on above: Performed By: #### C BC #### [facility] [address] [place] [address] Dr. Rc Foster Erythrocyte distribution width (RBC) [Ratio] 12.4 % Normal 11.0-15.0 [facility] Comment on above: Performed By: #### C BC #### [facility] [address] [place] [address] Dr. Rc Foster Hematocrit (Bld) [Volume fraction] 41.2 % Normal 36.0-48.0 [facility] Comment on above: Performed By: #### C BC #### [facility] [address] [place] [address] Dr. Rc Foster Hemoglobin (Bld) [Mass/Vol] 13.4 g/dL Normal 12.0-16.0 [facility] Comment on above: Performed By: #### C BC #### [facility] [address] [place] [address] Dr. Rc Foster IG # 0.01 10e3/ul Normal 0.00-0.03 [facility] Comment on above: Performed By: #### C BC #### [facility] [address] [place] [address] Dr. Rc Foster IG % 0.2 % Normal 0.0-0.5 [facility] Comment on above: Performed By: #### C BC #### [facility] [address] [place] [address] Dr. Rc Foster LYMPH # 2.3 103/ul Normal 1.2-3.8 [facility] Comment on above: Performed By: #### C BC #### [facility] [address] [place] [address] Dr. Rc Foster Lymphocytes/100 WBC (Bld) 40.6 % Normal 20.5-60.0 [facility] Comment on above: Performed By: #### C BC #### [facility] [address] [place] [address] Dr. Rc Foster MANUAL DIFF REQ NO Normal [facility] Comment on above: Performed By: #### C BC #### [facility] [address] [place] [address] Dr. Rc Foster MCH (RBC) [Entitic mass] 28.8 pg Normal 26.7-34.0 [facility] Comment on above: Performed By: #### C BC #### [facility] [address] [place] [address] Dr. Rc Foster MCHC (RBC) [Mass/Vol] 32.5 g/dL Normal 29.9-35.2 [facility] Comment on above: Performed By: #### C BC #### [facility] [address] [place] [address] Dr. Rc Foster MCV (RBC) [Entitic vol] 88.6 fL Normal 81.0-99.0 [facility] Comment on above: Performed By: #### C BC #### [facility] [address] [place] [address] Dr. Rc Foster MONO # 0.4 103/ul Normal 0.3-0.8 [facility] Comment on above: Performed By: #### C BC #### [facility] [address] [place] [address] Dr. Rc Foster Monocytes/100 WBC (Bld) 7.6 % Normal 1.7-12.0 [facility] Comment on above: Performed By: #### C BC #### [facility] [address] [place] [address] Dr. Rc Foster NEUT # 2.3 103/ul Normal 1.4-6.5 [facility] Comment on above: Performed By: #### C BC #### [facility] [address] [place] [address] Dr. Rc Foster Neutrophils/100 WBC (Bld) 40.6 % Critically low 43.0-75.0 [facility] Comment on above: Performed By: #### C BC #### [facility] [address] [place] [address] Dr. Rc Foster Platelet mean volume (Bld) [Entitic vol] 9.6 fL Normal 9.5-13.5 [facility] Comment on above: Performed By: #### C BC #### [facility] [address] [place] [address] Dr. Rc Foster PLT 194 103/ul Normal 150-450 [facility] Comment on above: Performed By: #### C BC #### [facility] [address] [place] [address] Dr. Rc Foster RBC 4.65 106/ul Normal 4.20-5.40 [facility] Comment on above: Performed By: #### C BC #### [facility] [address] [place] [address] Dr. Rc Foster WBC 5.5 103/ul Normal 4.0-11.0 [facility] Comment on above: Performed By: #### C BC #### [facility] [address] [place] [address] Dr. Rc Foster GLYCOHEMOGLOBIN A1Con 2021 ADA RECOMMENDATION SEE BELOW Normal [facility] Comment on above: Result Comment: ADA RECOMMENDED LIMIT 4.0 - 6.0 ADA THERAPEUTIC TARGET < 7.0 ACTION SUGGESTED > 7.0 Performed By: #### A 1C #### [facility] [address] [place] [address] Dr. Rc Foster Glucose [Mass/Vol] 131 mg/dL Normal [facility] Comment on above: Performed By: #### A 1C #### [facility] [address] [place] [address] Dr. Rc Foster HbA1c (Bld) [Mass fraction] 6.2 % Normal 4.5-6.2 [facility] Comment on above: Performed By: #### A 1C #### [facility] [address] [place] [address] Dr. Rc Foster PROF CHEM 8 (BAS METB)on Anion gap [Moles/Vol] 15.2 mmol/L Normal [facility] Comment on above: Performed By: #### T SH, BMP #### [facility] [address] [address] [address] Rc Foster Calcium [Mass/Vol] 8.5 mg/dL Normal 8.5-10.1 [facility] Comment on above: Performed By: #### T SH, BMP #### [facility] [address] [address] [address] Rc Foster Chloride [Moles/Vol] 100 mmol/L Normal 98-107 [facility] Comment on above: Performed By: #### T SH, BMP #### [facility] [address] [address] [address] Rc Foster CO2 [Moles/Vol] 26.6 mmol/L Normal 21.0-32.0 [facility] Comment on above: Performed By: #### T SH, BMP #### [facility] [address] [place] [address] Dr. Rc Foster Creatinine [Mass/Vol] 1.15 mg/dL Critically high 0.55-1.02 [facility] Comment on above: Performed By: #### T SH, BMP #### [facility] [address] [place] [address] Dr. Rc Foster EGFR-AF IRANIAN 58 mL/min/1.73m2 Critically low >=60 [facility] Comment on above: Performed By: #### T SH, BMP #### [facility] [address] [place] [address] Dr. Rc Foster EGFR-NON AF IRANIAN 48 mL/min/1.73m2 Critically low >=60 [facility] Comment on above: Performed By: #### T SH, BMP #### [facility] [address] [address] [address] Rc Foster Glucose [Mass/Vol] 211 mg/dL Critically high 74-106 [facility] Comment on above: Performed By: #### T SH, BMP #### [facility] [address] [address] [address] Rc Foster Potassium [Moles/Vol] 4.8 mmol/L Normal 3.5-5.1 [facility] Comment on above: Performed By: #### T SH, BMP #### [facility] [address] [place] [address] Dr. Rc Foster Sodium [Moles/Vol] 137 mmol/L Normal 136-145 [facility] Comment on above: Performed By: #### T SH, BMP #### [facility] [address] [place] [address] Dr. Rc Foster Urea nitrogen [Mass/Vol] 33.0 mg/dL Critically high 7.0-18.0 [facility] Comment on above: Performed By: #### T SH, BMP #### [facility] [address] [place] [address] Dr. Rc Foster Urea nitrogen/Creatinine [Mass ratio] 28.7 mg/mg Normal [facility] Comment on above: Performed By: #### T SH, BMP #### [facility] [address] [place] [address] Dr. Rc Foster TSHon 11-27-2021 TSH 0.744 uIU/mL Normal 0.358-3.740 [facility] Comment on above: Performed By: #### T SH, BMP #### [facility] [address] [place] [address] Dr. Rc Foster SYMPTOMATIC COVID-19 ANTIGEN on 10-28-2021 EUA Statement SEE BELOW Normal [facility] Comment on above: Result Comment: This [...] revoked sooner. Performed By: #### C VDAGS ####[facility] [address] [place], [place] [address]FcDr. Rc Foster SARS-CoV-2 (COVID-19) RNA YARED+probe Ql (Unsp spec) Negative Normal NEGATIVE [facility] Comment on above: Performed By: #### C VDAGS ####[facility] [address] [place] [id number]. Rc Foster GLYCOHEMOGLOBIN A1Con 2021 ADA RECOMMENDATION SEE BELOW Normal [facility] Comment on above: Result Comment: ADA RECOMMENDED LIMIT 4.0 - 6.0 ADA THERAPEUTIC TARGET < 7.0 ACTION SUGGESTED > 7.0 Performed By: #### A 1C #### [facility] [address] [address] [address] Rc Foster Glucose [Mass/Vol] 128 mg/dL Normal [facility] Comment on above: Performed By: #### A 1C #### [facility] [address] [address] [address] Rc Foster HbA1c (Bld) [Mass fraction] 6.1 % Normal 4.5-6.2 [facility] Comment on above: Performed By: #### A 1C #### [facility] [address] [address] [address] Rc Foster Discharge CCD Assessmenton 0 09-06-2020 Discharge CCD Assessment [facility] Patient: CARROLL HARDEN [facility] [place] [address] MR#: [id number] DISCHARGE CCD ASSESSMENT : 58 Service Date: 09/06/20 1018 Discharge CCD Assessment Assessment Patient discharged home to continue exercises, pain medication, and wound care Electronically Signed eSign Date and Time Melyssa Flores 09/06/20 1019 Tera Hernandez MD Normal [facility] GLUCOSE METERon 09-06-2020 Glucose [Mass/Vol] 126 mg/dL High 70-99 [facility] Comment on above: Order Comment: CONSE RVATION Result Comment: Fast ing GLUCOSE reference range has been updated per (ADA) [place] [employer]'s recommendation. 07/18/2018 Performed By: #### L 500.50126 ####Test performed at: [place] [address] Glucose [Mass/Vol] 205 mg/dL High 70-99 [facility] Comment on above: Order Comment: CONSE RVATION Result Comment: Fast ing GLUCOSE reference range has been updated per (ADA) [place] [employer]'s recommendation. 07/18/2018 Insulin per sl scale Performed By: #### L 500.22154 #### Test performed at: [place] [address] Internal Med Progress Noteon 09-06-2020 Internal Med Progress Note [facility] Patient: CARROLL HARDEN [address] [place] [address] MR#: [id number] PROGRESS NOTE - Internal Medicine : 58 [...] RES, Katarzy na MD 09/06/20 1134 Normal [facility] Orthopedic Progress Noteon 0 09-06-2020 Orthopedic Progress Note [facility] Patient: CARROLL HARDEN [address] [place] [address] MR#: [id number] PROGRESS NOTE - Orthopedic : 58 Service [...] Newton RN 09/06/20 1022 Tera Hernandez MD [facility] Anesthesia Noteon 09-05-2020 Anesthesia Note [facility] Patient: CARROLL HARDEN [address] [place] [address] MR#: [id number] ANESTHESIA NOTE : Service Date: 09/05/20 08 [...] Signed eSign Date and Time Krystian Akers TOLL RELIEF OPERATOR-FISHERIES INSPECTOR 09/05/20 0813 Chu Glez MD Normal [facility] BASIC MET PANELon 09-05-2020 Anion gap [Moles/Vol] 12 mmol/L Normal 6-18 [facility] Comment on above: Performed By: #### L 500.55115, L500.42918 #### Test performed at: [address] [address] Calcium [Mass/Vol] 8.7 mg/dL Normal 8.5-10.1 [facility] Comment on above: Performed By: #### L 500.25130, L500.50714 #### Test performed at: [address] [address] Chloride [Moles/Vol] 101 mmol/L Normal 98-107 [facility] Comment on above: Performed By: #### L 500.39253, L500.34369 #### Test performed at: [address] [address] CO2 [Moles/Vol] 25 mmol/L Normal 21-32 [facility] Comment on above: Performed By: #### L 500.13760, L500.14094 #### Test performed at: [address] [address] Creatinine [Mass/Vol] 1.020 mg/dL Normal 0.550-1.020 [facility] Comment on above: Performed By: #### L 500.87735, L500.76924 #### Test performed at: [address] [address] Glucose [Mass/Vol] 264 mg/dL High 70-99 [facility] Comment on above: Result Comment: Fast ing GLUCOSE reference range has been updated per (ADA) [place] [employer]'s recommendation. 07/18/2018 Performed By: #### L 500.13027, L500.39511 #### Test performed at: [address] [address] OSM 289 mosm/kg Normal 270-300 [facility] Comment on above: Performed By: #### L 500.84970, L500.55210 #### Test performed at: [address] [address] Potassium [Moles/Vol] 4.5 mmol/L Normal 3.5-5.1 [facility] Comment on above: Performed By: #### L 500.67785, L500.96125 #### Test performed at: [address] [address] Sodium [Moles/Vol] 134 mmol/L Low 136-145 [facility] Comment on above: Performed By: #### L 500.73874, L500.72442 #### Test performed at: [address] [address] Urea nitrogen [Mass/Vol] 17 mg/dL Normal 7-18 [facility] Comment on above: Performed By: #### L 500.85329, L500.03498 #### Test performed at: [address] [address] GFR ESTIMATEon 09-05-2020 IF AMER > 60 Normal > 60 [facility] Comment on above: Result Comment: eGFR (Estimated GFR) Units of measure:mL/min/1.73 meters sq. *CALCULATION REVISED 02/11/2015;IDMS-traceable MDRD equation eGFR is derived from the reexpressed MDRD Study equation using the following parameters: serum creatinine, age, gender and race. An eGFR<60 mL/min/1.73m2 for >3 months is consistent with chronic kidney disease. Refer to KDOQI guidelines for clinical interpretation. Performed By: #### L 500.91030, L500.69744 #### Test performed at: [place] [address] [place] [address] IF non-AFR AMER 55 Low > 60 [facility] Comment on above: Performed By: #### L 500.06531, L500.53904 #### Test performed at: [place] [address] [place] [address] GLUCOSE METERon 09-05-2020 Glucose [Mass/Vol] 177 mg/dL High 70-99 [facility] Comment on above: Order Comment: CONSE RVATION Result Comment: Fast ing GLUCOSE reference range has been updated per (ADA) [place] [employer]'s recommendation. 07/18/2018 Performed By: #### L 500.53478 #### Test performed at: [address] [address] Glucose [Mass/Vol] 310 mg/dL High 70-99 [facility] Comment on above: Result Comment: Fast ing GLUCOSE reference range has been updated per (ADA) [place] [employer]'s recommendation. 07/18/2018 Insulin per sl scale Performed By: #### L 500.11711 ####Test performed at: [address] [address] Glucose [Mass/Vol] 281 mg/dL High 70-99 [facility] Comment on above: Result Comment: Fast ing GLUCOSE reference range has been updated per (ADA) [place] [employer]'s recommendation. 07/18/2018 Insulin per sl scale Performed By: #### L 500.87394 #### Test performed at: [place] [address] [place] [address] Glucose [Mass/Vol] 105 mg/dL High 70-99 [facility] Comment on above: Result Comment: Fast ing GLUCOSE reference range has been updated per (ADA) [place] [employer]'s recommendation. 07/18/2018 Performed By: #### L 500.65424 #### Test performed at: [place] [address] [place] [address] HGB AND HCTon 05-14-2021 Hematocrit (Bld) [Volume fraction] 37.5 % Normal 36.0-48.0 [facility] Comment on above: Performed By: #### L 200.22119 #### Test performed at: [place] [address] Hemoglobin (Bld) [Mass/Vol] 12.5 g/dL Normal 12.0-15.0 [facility] Comment on above: Performed By: #### L 200.42911 #### Test performed at: [place] [address] Internal Med Progress Noteon 09-05-2020 Internal Med Progress Note [facility] Patient: CARROLL HARDEN [address] [place] [address] MR#: [id number] PROGRESS NOTE - Internal Medicine : 58 [...] input. Disc (more content not included)... Normal [facility] OT Therapy Recommendationson 09-05-2020 OT Therapy Recommendations [facility] Patient: CARROLL HARDEN [address] [place] [address] MR#: [id number] OT THERAPY RECOMMENDATIONS : 58 Service Date: 09/05/20 1511 Therapy Recommendations Therapy Recommendations Recommendations OT evaluation completed. OT recommends HOME with FAmily assist. No further acute OT needs are indicated at this time. Electronically Signed eSign Date and Time Trupti Rojas OT 09/05/20 1512 Normal [facility] Orthopedic Progress Noteon 0 09-05-2020 Orthopedic Progress Note [facility] Patient: CARROLL HARDEN [address] [place] [address] MR#: [id number] PROGRESS NOTE - Orthopedic : 58 Service [...] eSign Date and Time RUBEN KHAN 09/05/20 8924 Tera Hernandez MD Normal [facility] PT Therapy Recommendationson 09-05-2020 PT Therapy Recommendations [facility] Patient: CARROLL HARDEN [address] [place], [place] [id number] MR#: [id number] PT THERAPY RECOMMENDATIONS : 58 Service Date: 09/05/20 0914 Therapy Recommendations Therapy Recommendations Recommendations PT eval complete. No further acute PT needs. Recommend d/c home /c family assist. Electronically Signed eSign Date and Time Tiffanie Bashir PT 09/05/20 0914 Normal [facility] z OT Inpatient Discharge Not juan 09-05-2020 z OT Inpatient Discharge Note [facility] Patient: CARROLL HARDEN [address] [place], [place] [id number] MR#: [id number] OT INPATIENT DISCHARGE NOTE : 58 Service [...] Time Trupti Rojas OT 09/05/20 1534 Normal [facility] z OT Inpatient Evaluationon 09-05-2020 z OT Inpatient Evaluation [facility] Patient: CARROLL HARDEN [address] [place], [place] [id number] MR#: [id number] OT INPATIENT EVALUATION : 58 Inpatient OT HPI Date of Service 09/05/20 Time In: 1401 Time Out: 1412 Total Treatment Time (Mins) 11 Visit Reason LATERAL RECESS STENOSIS W/ RADICULOPATHY Surgery Type/Date s/p L L4-5 LAmi, foraminotomy, decompression on 09.04.20/ Lumbar spine precautions Referral Date 09/04/20 Tx Diagnosis: LOW BACK PAIN Insurance Name [facility] POS O Hospital Course Pt [...] 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 Objective Precautions [...] Excellent Nader (more content not included)... Normal [facility] z PT Inpatient Discharge Not juan 09-05-2020 z PT Inpatient Discharge Note [facility] Patient: CARROLL HARDEN [address] [place] [address] MR#: [id number] PT INPATIENT DISCHARGE NOTE : 58 Service [...] Time Tiffanie Bashir PT 09/05/20 1139 Normal [facility] z PT Inpatient Evaluationon 09-05-2020 z PT Inpatient Evaluation [facility] Patient: CARROLL HARDEN [address] [place] [address] MR#: [id number] PT INPATIENT EVALUATION : 58 Service Date: 09/05/20 09 Inpatient PT HPI Date of Service 09/05/20 Time In: 0845 Time Out: 0907 Total Treatment Time (Mins) 22 Room Number 624 Visit Reason LATERAL RECESS STENOSIS W/ RADICULOPATHY Surgery Type: L L4-5 lami, foraminotomy, decompression Surgery Date: 09/04/20 Referral Date 09/04/20 Tx Diagnosis: LOW BACK PAIN Insurance Name [employer] O POS [facility] Hospital Course 60 y.o female at [facility] for above sx d/t lateral recess [...] posture. 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 Pt agreeable to use of her cane [...] Time Tiffanie Bashir PT 09/05/20 1502 Normal [facility] GLUCOSE METERon 09-04-2020 Glucose [Mass/Vol] 94 mg/dL Normal 70-99 [facility] Comment on above: Result Comment: Fast ing GLUCOSE reference range has been updated per (ADA) [place] [employer]'s recommendation. 07/18/2018 Performed By: #### L 500.93479 ####Test performed at: [place] [address] Internal Medicine Consultati onon 09-04-2020 Internal Medicine Consultation [facility] Patient: CARROLL HARDEN [address] [place] [address] MR#: [id number] CONSULTATION - Internal Medicine : 58 Service Date: 09/04/20 5881 History of Present Illness Referring Physician Tera [...] of Systems (more content not included)... Normal [facility] OPERATIVE REPORTon OPERATIVE REPORT NAME: CARROLL HARDEN MR#: [id number] SURGEON: Tera Hernandez MD DATE OF SURGERY: [...] there were no complications. TERA HERNANDEZ MD [facility] PT NAME: CARROLL HARDEN MR#: [id number] [address] [place], [place] [address] ACCT: [id number] : 58 OPERATIVE REPORT JFS/MODL/[id number] E/S: Tera Hernandez MD 09/18/20 1207 Electronically Signed [facility] PT NAME: CARROLL HARDEN MR#: [id number] [address] [place], [place] [address] ACCT: [id number] : 58 OPERATIVE REPORT Normal [facility] Primary Residenton Primary Resident [facility] Pt Name: CARROLL HARDEN MR#: [id number] [address] [place] [address] ACCT: [id number] [place] [id number] : 58 Service Date: 09/04/20 1603 Primary Resident/Call Primary Resident: [id number] Panchito After Hours Call: [phone] Red Team Electronically Signed eSign Date and Time Ana Flanagan RES 09/16/20 1521 Normal [facility] LUMBAR SPINE 2 OR 3 VIEWSon 09-03-2020 LUMBAR SPINE 2 OR 3 VIEWS STUDY: LUMBAR SPINE 2 OR 3 VIEWS; 09/04/2020 2:57 pm INDICATION: LEFT L4-L5 LAMINECTOMY,FORAMINOT JOSE ANGEL,DECOMPRESSION. COMPARISON: None. ACCESSION NUMBER(S): [id number] ORDERING CLINICIAN: Tera Hernandez FINDINGS: Intraoperative fluoroscopy of the lumbar spine demonstrates surgical instruments posterior to L5. IMPRESSION: As above Normal [facility] CHEST PA/AP & LATERALon CHEST PA/AP & LATERAL STUDY: CHEST PA/AP LATERAL; 08/25/2020 11:00 am INDICATION: SOB/PAT. COMPARISON: None. ACCESSION NUMBER(S): [id number] ORDERING CLINICIAN: Madelyn Leslie FINDINGS: The lungs are clear without pleural effusion. Normal heart size, mediastinum, elzbieta, and pulmonary vasculature. IMPRESSION: No active disease in the chest. Normal [facility] CONSULTATION REPORTon 2020 CONSULTATION REPORT NAME: CARROLL HARDEN MR#: [id number] MINERALOGY PROFESSOR: Madelyn Leslie MD DATE OF CONSULTATION: 08/25/2020 [...] pulse ox is 98% on room air. [facility] PT NAME: CARROLL HARDEN MR#: [id number] [address] [place] [address] ACCT: [id number] : 58 CONSULTATION HEENT: Atraumatic head. 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 IMPRESSION: 1. Preop clearance for L4-L5 disk [...] you for the courtesy of this consultation. MADEYLN LESLIE MD MS/MODL/[id number] E/S: Madelyn Leslie MD 08/26/20 1960 Electronically Signed [facility] PT NAME: CARROLL HARDEN MR#: [id number] [address] [place] [address] ACCT: [id number] : 58 CONSULTATION Normal [facility] LUMB SP COMP W FLEX/EXT 6 VW S>on 08-08-2020 LUMB SP COMP W FLEX/EXT 6 VWS> STUDY: LUMB SP COMP W FLEX/EXT 6 VWS>; 08/08/2020 9:43 am INDICATION: BACK PAIN. COMPARISON: No available comparisons. ACCESSION NUMBER(S): [id number] ORDERING CLINICIAN: Tera Hernandez TECHNIQUE: 6 views [...] L5-S1 level. No evidence of instability.. Normal [facility] XR SHLDR >/=3V AP/RUSH AP/OTH R RTon [...] Jul 03 2018 10:17AM EST [id number] N [facility] ANES Holly 06-20-2018 ANES POST HNO ID: [id number] Author: Rohit Velarde Service: Anesthesiology Author Type: [...] 20, 2018 TIME: 2:38 PM PAGER/CONTACT #: [facility] ANES PREOPon 06-20-2018 ANES PREOP HNO ID: [id number] Author: Rohit Velarde Service: Anesthesiology Author Type: [...] (XYLOCAINE) 0.1-0.2 mL INTRADERMAL PRN Isreal Kim) Ternt lactated ringers infusion 5-30 mL/hr INTRAVENOUS CONTINUOUS [...] June 20, 2018 TIME: 9:35 AM CSN: [id number] [facility] BRIEF OP NOTon 06-20-2018 BRIEF OP NOT HNO ID: [id number] Author: Kusum Francisco Service: Orthopaedic Surgery Author Type: Resident Type: Brief Op Note Filed: 06/20/2018 5:49 PM Note Text: BRIEF OP NOTE LOG ID: [id number] Surgery/Procedure Date: 06/20/2018 Incision/Procedure Start Time: 11:18 AM Incision Close/Procedure End Time: 1:17 PM Surgeon(s)/Procedural ist(s) and Senior Financial Analyst(s): Surgeon(s) and Role: * Jenna Lentz - [...] 20, 2018 TIME: 5:49 PM PAGER/CONTACT #: [facility] CASE MANAGEMon 06-20-2018 CASE MANAGEM HNO ID: [id number] Author: May Herrera (Sw) Service: Care Management Author Type: Plastic Surgery Manager Type: Care Mgt Progress Note Filed: 06/20/2018 [...] is pcp summary of care sent via [facility] () Nurse to provide discharge instructions. TRANSPORTATION ARRANGEMENTS: Car Spouse ADDITIONAL CONTACT RESOURCES: Needs Prior to Discharge: Ready for Discharge Appointments for Next 45 Days Date Time Provider Location Dept Phone 07/03/2018 10:00 AM CAROLA BAPTISTE AT [phone] 07/03/2018 10:30 AM GABRIEL CANTU) LATOSHA AT [phone] 07/31/2018 2:15 PM JENNA LENTZ AT [phone] Pt to be discharged home to follow up as above. SIGNATURE: DARIO Saini PATIENT NAME: Carroll Harden DATE: June 20, 2018 TIME: 5:31 PM PAGER/CONTACT #: [id number] [facility] CASE MGT INIT ASSESon 2018 CASE MGT INIT ASSES HNO ID: [id number] Author: May Herrera (Sw) Service: Care Management Author Type: Plastic Surgery Manager Type: Care Mgt Initial Assessment Filed: 06/20/2018 [...] Has the Patient Been in a Senior Living Facility in the Past 30 days? 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 O.Therapy recommend home. Spouse visiting at bedside and will transport pt home later today.Further discharge needs not anticipated.SW/TCC to follow to assist with plans for discharge. SIGNATURE: DARIO Saini PATIENT NAME: Carroll Harden DATE: June 20, 2018 TIME: 5:27 PM PAGER/CONTACT #: [phone] [facility] CONSULTon 06-20-2018 CONSULT HNO ID: [id number] Author: Dulce Green Service: General Internal Medicine [...] Disp: Rfl: 06/19/2018 at 0630 rizatriptan (MAXALT CARE TEAM ASSISTANT) 10 mg disintegrating tablet DISSOLVE 1 TABLET [...] the care of your patient. Dulce Green APRN.AIRPORT REFUELING HANDLER June 20, 2018 4:34 PM Normal [facility] NURSING PROGon 06-20-2018 Protein mass conc HNO ID: [id number] Author: Fela (Rn) FLETCHER Phillips Service: (none) Author Type: Registered Nurse Type: Nursing Progress Note Filed: 06/20/2018 7:39 PM Note Text: Nursing Progress Note Patient Name: Carroll Harden Patient Location: [place] [address] Daily Note: 1545. Care assumed. Pt [...] at bedside. 1720. Dr. Blake and Dulce APPRENTICE COOK at bedside, plan is to stay for [...] note was completed by: Fela Phillips RN [facility] Protein mass conc HNO ID: [id number] Author: Wendy ValenciaRn) FLETCHER Underwood Service: Nursing Author Type: Registered Nurse Type: Nursing Progress Note Filed: 06/20/2018 10:20 AM Note Text: Nursing Progress Note Patient Name: Carroll Harden Patient Location: [facility]/ S* Daily Note:Right interscalene nerve block with ultrasound guidance with Dr. Velarde and Dr. Marlow at bedside. Patient tolerated procedure well, VSS, will continue to monitor as we wait for OR team. Resting comfortably with no complaints of pain at this time. This note was completed by: Wendy Underwood RN [facility] OPERATIVE NOon 06-20-2018 OPERATIVE NO HNO ID: [id number] Author: Jenna Lentz Service: Orthopaedic Surgery Author Type: Physician Type: Operative Report Filed: 06/20/2018 1:25 PM Note Text: [place] [address] [place] OPERATIVE REPORT NAME: Carroll Harden [facility] #: [id number] DATE: 06/20/2018 (11:18am-1:17pm) AGE: 58 SURGEON 1: Jenna Lentz M.D. FRUIT AND VEGETABLE CLASSER: 1. Augie Coates M.D. 2. Kusum Prasad M.D. 3. Mundo Pablo OPERATION: Right total shoulder arthroplasty, biceps tenodesis. ANESTHESIA: General anesthesia with regional interscalene nerve block for postoperative pain control. PREOPERATIVE DIAGNOSIS: Right shoulder primary glenohumeral osteoarthritis. POSTOPERATIVE DIAGNOSIS: Right shoulder primary glenohumeral osteoarthritis, biceps tendinopathy. OPERATIVE INDICATIONS: The patient is a 58 year oldulc-cprh-rei right-hand dominant white female who has a [...] rotator interval stitch was then passed in aoeiii-xf-kkdob fashion with a #2 Ticron suture and tied down to close the lateral rotator interval and set the osteotomy superiorly. The two #2 Fiberwire sutures coming out of the bicipital groove were then sequentially passed in a wrzhqi-rq-alueg fashion medial to the horizontal mattress and [...] none COMPLICATIONS: none apparent Jenna Lentz M.D. [facility] PT EDon 06-20-2018 PT ED HNO ID: [id number] Author: Cindy ValenciaRn) FLETCHER Griffin Service: (none) [...] Signed By: Cindy Griffin RN In Department: [facility] SURGICAL SERVICES [facility] THERAPY NTon 06-20-2018 THERAPY NT HNO ID: [id number] Author: Abi ValenciaOtTyesha Phillips Service: Occupational Therapy Author Type: Occupational Therapist Type: Therapy (PT/OT/Speech/Resp) Filed: 06/20/2018 4:59 PM Note Text: Occupational Therapy Evaluation SERVICE DATE: 06/20/2018 SERVICE TIME: 1550 to 1640 ROOM: [address] Recommended Discharge Disposition: Home Anticipated Discharge Needs: [...] living (ADL) Interventions Provided: Evaluation;Therapeuti c Exercise (22908);Self Group Home Management (53925) $ Evaluation-Low (19474) Billed Units: 1 unit Therapeutic Exercise (36326) Treatment Minutes: 10 1 unit Skilled Intervention(s): Education in Self Group Home Management (03137) Treatment Minutes: 28 2 units Skilled Intervention(s): [...] Environment Patient Lives With: Spouse Assistance 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 Number Of Stairs To Bed/Bath: 0 Equipment [...] DATE: June 20, 2018 TIME: 4:54 PM [facility] XR SHOULDER 2V AP/TRUE AP RT [...] 20 2018 2:04PM EST [id number] Normal [facility] NURSING PROGon 06-09-2018 Protein mass conc HNO ID: [id number] Author: Ivana (Rn) FLETCHER Heller Service: Nursing [...] RN June 15, 2018 4:39 PM Normal [facility] Type and SCR (30D)on 019 ABO/RH(D) Positive Normal [facility] HOSPon 04-28-2018 HOSP Patient:Adalberto Harden MRN: Height:5' 2 (1.575 m) Weight:186 lb (84.369 kg) Outpatient Medications as of 06/20/18: calcium phosphate dibas/vit D3 (VITAMIN D, WITH CALCIUM, ORAL) docusate sodium (COLACE) 100 mg capsule aspirin, enteric coated (ECOTRIN LOW STRENGTH) 81 mg EC tablet oxyCODONE-acetaminoph en (PERCOCET) 5-325 mg tablet rizatriptan (MAXALT CARE TEAM ASSISTANT) 10 mg disintegrating tablet mupirocin (BACTROBAN) 2 [...] long-term current use of insulin (HCC) [E11.9] STPEHANIE (obstructive sleep apnea) [G47.33] Mixed hyperlipidemia [E78.2] Allergies: Contrast Dye Demerol [Meperidine (Pf)] Imitrex [Sumatriptan Succinate] Influenza Vaccine Tri-Sp 01-02 Latex Betadine [Povidone-Iodine] Dhe Dilaudid [Hydromorphone (Bulk)] Date Verified: 06/20/18 Lab Values Lab Value Units Date High Low POTA* 5.1 mmol/L 06/07/2018 5.1 3.7 NATY* 40.7 % 06/07/2018 46.0 36.0 Progress Notes (RADIO CT SCAN [facility]): RT Lillian, Tech 06/07/2018 [...] Lillian June 07, 2018 9:54 AM Normal [facility] Vital Signs Date Time Vital Sign Value Performing Clinician Facility 02-24-2024 14:13-0400 Body height 154.94 cm [facility] 02-24-2024 14:13-0400 Body mass index (BMI) [Ratio] 33.1 kg/m2 [facility] 02-24-2024 14:13-0400 Body temperature 96 [degF] [facility] 02-24-2024 14:13-0400 Body weight 79.6 kg [facility] 02-24-2024 14:13-0400 Diastolic blood pressure 84 mm[Hg] [facility] 02-24-2024 14:13-0400 Heart rate 66 /min [facility] 02-24-2024 14:13-0400 Systolic blood pressure 159 mm[Hg] [facility] 12-20-2023 15:35-0400 Body height 154.94 cm [facility] 12-20-2023 15:35-0400 Body mass index (BMI) [Ratio] 33.8 kg/m2 [facility] 12-20-2023 15:35-0400 Body weight 81.19 kg [facility] 12-20-2023 15:35-0400 Diastolic blood pressure 80 mm[Hg] [facility] 12-20-2023 15:35-0400 Heart rate 78 /min [facility] 12-20-2023 15:35-0400 Respiratory rate 12 /min [facility] 12-20-2023 15:35-0400 Systolic blood pressure 134 mm[Hg] [facility] 04-29-2023 09:00-0500 Body height 154.94 cm Robert Ball Other [facility] Other 04-29-2023 09:00-0500 Body mass index (BMI) [Ratio] 33.14 kg/m2 Robert Ball Other [facility] Other 04-29-2023 09:00-0500 Body weight 79.56 kg Robert Ball Other [facility] Other 04-29-2023 09:00-0500 Diastolic blood pressure 89 mm[Hg] Robert Ball Other [facility] Other 04-29-2023 09:00-0500 Respiratory rate 12 /min Robert Ball Other [facility] Other 04-29-2023 09:00-0500 Systolic blood pressure 155 mm[Hg] Robert Ball Other [facility] Other 12-20-2022 13:45-0400 Body height 154.94 cm Robert Ball Other [facility] Other 12-20-2022 13:45-0400 Body mass index (BMI) [Ratio] 34.12 kg/m2 Robert Ball Other [email or web address] Other 12-20-2022 13:45-0400 Body weight 81.92 kg Robert Ball Other [email or web address] Other 12-20-2022 13:45-0400 Diastolic blood pressure 96 mm[Hg] Robert Ball Other [email or web address] Other 12-20-2022 13:45-0400 Respiratory rate 12 /min Robert Ball Other [email or web address] Other 12-20-2022 13:45-0400 Systolic blood pressure 179 mm[Hg] Robert Ball Other [email or web address] Other 08-04-2022 09:45-0400 Body height 154.94 cm Robert Ball Other [email or web address] Other 08-04-2022 09:45-0400 Body mass index (BMI) [Ratio] 33.33 kg/m2 Robert Ball Other [email or web address] Other 08-04-2022 09:45-0400 Body weight 80.02 kg Robert Ball Other [email or web address] Other 08-04-2022 09:45-0400 Diastolic blood pressure 77 mm[Hg] Robert Ball Other [email or web address] Other 08-04-2022 09:45-0400 Respiratory rate 12 /min Robert Ball Other [email or web address] Other 08-04-2022 09:45-0400 Systolic blood pressure 128 mm[Hg] Robert Ball Other [email or web address] Other Encounters Encounter Date Encounter Type Care Provider Facility Start: 02-24-2024 End: 02-24-2024 [facility] Work Phone: Start: 02-24-2024 End: 02-24-2024 Patient encounter procedure [facility] Work Phone: Start: 02-22-2024 Non-patient / Non-visit [facility] Physician [facility] Work Phone: Start: 12-27-2023 Non-patient / Non-visit [facility] Work Phone: Start: 12-20-[address] [facility] Start: 12-20-2023 End: 12-20-2023 ambulatory [facility] Work Phone: Start: 12-20-2023 End: 12-20-[address] [facility] Work Phone: Start: 09-26-2023 End: 09-26-2023 ambulatory Miriam Barron MD Facility: [facility] Start: 08-15-2023 End: 08-15-2023 ambulatory Miriam Barron MD [facility]: [facility] Start: 08-08-2023 End: 08-08-2023 ambulatory Miriam Barron MD [facility]: [facility] Start: 06-27-2023 End: 06-27-2023 ambulatory Miriam Barron MD Facility: [facility] Start: 06-06-2023 End: 06-06-2023 ambulatory Miriam Barron MD Facility: [facility] Start: 06-01-2023 End: 06-01-2023 ambulatory Robert Cruz Other [facility] Other Start: 06-01-2023 Telephone encounter Robert Cruz [facility] Start: 05-23-2023 End: 05-23-2023 ambulatory Miriam Barron MD Facility: [facility] Start: 05-13-2023 End: 05-13-2023 ambulatory Robert Ball Other [email or web address] Other Start: 05-13-2023 Telephone encounter Robert Ball [facility] Start: 05-09-2023 End: 05-09-2023 ambulatory Robert Ball Other [email or web address] Other Start: 05-09-2023 Telephone encounter Robert Ball [facility] Start: 05-04-2023 End: 05-04-2023 ambulatory Robert Ball Other [email or web address] Other Start: 05-04-2023 Telephone encounter Robert Ball [facility] Start: 05-02-2023 End: 05-02-2023 ambulatory Robert Ball Other [email or web address] Other Start: 05-02-2023 Telephone encounter Robert Ball [facility] Start: 04-29-2023 End: 04-29-2023 ambulatory Robert Ball Other [email or web address] Other Start: 04-29-2023 Office outpatient vi sit 15 minutes Robert Ball [facility] Start: 04-04-2023 End: 04-04-2023 ambulatory Robert Ball Other [email or web address] Other Start: 04-04-2023 Telephone encounter Robert Ball [facility] Start: 01-24-2023 End: 01-24-2023 ambulatory Robert Ball Other [email or web address] Other Start: 01-24-2023 Telephone encounter Robert Ball [facility] Start: 12-23-2022 End: 12-23-2022 ambulatory Robert Ball Other [email or web address] Other Start: 12-23-2022 Telephone encounter Robert Ball [facility] Start: 12-20-2022 End: 12-20-2022 ambulatory Robert Ball Other [email or web address] Other Start: 12-20-2022 Office outpatient vi sit 15 minutes Robert Cruz [facility] Start: 12-17-2022 End: 12-17-2022 ambulatory Robert Cruz Other [email or web address] Other Start: 12-17-2022 Telephone encounter Robert Hamilton [facility] Start: 11-08-2022 End: 11-08-2022 ambulatory Robert Cruz Other [email or web address] Other Start: 11-08-2022 Telephone encounter Robert Hamilton [facility] Start: 10-22-2022 End: 10-22-2022 ambulatory Robert Cruz Other [email or web address] Other Start: 10-22-2022 Telephone encounter Robert Hamilton [facility] Start: 10-13-2022 End: 10-13-2022 ambulatory Robert Cruz Other [email or web address] Other Start: 10-13-2022 Telephone encounter Robert Hamilton [facility] Start: 09-27-2022 End: 09-27-2022 ambulatory Robert Cruz Other [email or web address] Other Start: 09-27-2022 Telephone encounter Robert Cruz [facility] Start: 08-23-2022 End: 08-24-[address] RISHI PARKER Facility:[facility] Start: 08-04-2022 End: 08-04-2022 ambulatory Robert Cruz Other [email or web address] Other Start: 08-04-2022 Office outpatient vi sit 25 minutes Robert Cruz [facility] Start: 04-03-2022 Encounter for genera l adult medical examination without abnormal findings DR ROBERT CRUZ [facility] Start: 03-30-2022 End: 03-31-2022 ambulatory [...] Start: 07-03-2018 End: 07-03-2018 Patient encounter procedure [facility] Start: 06-20-2018 End: 06-20-2018 Evaluation and management of inpatient [facility] Procedures Date Procedure Procedure Detail Performing Clinician Start: 06-07-2018 Antibody screen JENNA LATHAM GUY Plan of Treatment Date Care Activity Detail Author Comprehensive metabo lic 2000 panel - Serum or Plasma [facility] enter MG Breast - bilateral Diagnostic [facility] Payers Date Payer Category Payer Unknown 2022 Blue Cross Blue Shield [id number] 2019 Unknown [id number] 1960 Self-pay [id number] 1959 Unknown [id number] 2.16.84 0.1.974034.3.579.2.593 1959 Unknown [id number] 2..84 0.1.764979.3.579.2.593 1959 Unknown [id number] 2.16.84 0.1.159324.3.579.2.593 1959 Unknown [id number] 2.16.84 0.1.829639.3.579.2.593 1959 Unknown [id number] 2.16.84 0.1.626105.3.579.2.593 1959 Unknown [id number] 2.16.84 0.1.957220.3.579.2.593 1959 Unknown [id number] 2.16. 840.1.886448.3.579.2.196 1959 Unknown [id number] 2.16. 840.1.885224.3.579.2.196 1959 Unknown [id number] 2.16. 840.1.911263.3.579.2.196 1959 Unknown [id number] 2.16. 840.1.612318.3.579.2.196 1959 Unknown [id number] 2.16. 840.1.087067.3.579.2.196 1959 Unknown [id number] 2.16. 840.1.340994.3.579.2.196 Unknown [id number] 2.16.84 0.1.112060.3.579.2.593 Unknown [facility] [id number] Social History Date Type Detail Facility Sex Assigned At [email or web address] Other Start: 1960 Sex Assigned At Female F [facility] Clinical Notes 08-04-2022 to 06-01-2023 Note Date [...] and without status migrainosus (ICD-10 - G43.719) [email or web address] Other 01-15-2024 Evaluation note* Encounter Date Diagnosis Assessment Notes Treatment Notes Treatment Clinical Notes Apr, Intractable chronic migraine without aura and without status migrainosus (ICD-10 - G43.719) [email or web address] Other 01-08-2024 Evaluation note* Encounter Date Diagnosis Assessment Notes Treatment Notes Treatment Clinical Notes Apr, Intractable chronic migraine without aura and without status migrainosus (ICD-10 - G43.719) [email or web address] Other 01-05-2024 Evaluation note* Encounter Date Diagnosis [...] Begin Amitriptyline Stop Tizanidine. MRI cervical spine [email or web address] Other 08-31-2023 Evaluation note* Encounter Date Diagnosis Assessment Notes Treatment Notes Treatment Clinical Notes Nov, Primary hypertension (ICD-10 - I10) [email or web address] Other 08-28-2023 Evaluation note* Encounter Date Diagnosis Assessment Notes Treatment Notes Treatment Clinical Notes Nov, Adverse effect of smooth muscle relaxant, subsequent encounter (ICD-10 - T44.3X5D) Avoid combination of Klonopin and Zanaflex when scheduled shampoo person. May want to cut back on Zanaflex. [...] Pain in left shoulder (ICD-10 - M25.512) [email or web address] Other 06-30-2023 Evaluation note* Encounter Date Diagnosis Assessment Notes Treatment Notes Treatment Clinical Notes Sep, Type 2 diabetes mellitus with hyperglycemia, without long-term current use of insulin (ICD-10 - E11.65) [email or web address] Other 06-05-2023 Evaluation note* Encounter Date Diagnosis Assessment Notes Treatment Notes Treatment Clinical Notes Sep, Candidiasis, intertriginous (ICD-10 - B37.2) [email or web address] Other 04-12-2023 Evaluation note* Encounter Date Diagnosis [...] Jul, Other specified hypothyroidism (ICD-10 - E03.8) [facility] [employer] Other Evaluation noteNo [facility] [employer] Other Evaluation noteNo assessment information available [facility] Work Phone: Evaluation note* Diagnosis Onset Date Resolution Status Cervical pain acute Cervical spondylosis acute Cervical pain acute Cervical spondylosis acute Painful lumpy right breast a cute [facility] Work Phone: History general Narrative - Reported* [...] CATHETERIZATION 2016 Hospitalization History SEE SURIGCAL HX [email or web address] Other History general Narrative - Reported* Type [...] Right knee arthroscopy 10/2022 Hospitalization History SEE [facility] [email or web address] Other Reason for referral (narrative)* Reason Evaluation of right knee pain Diagnosis 1 Strain of right knee , subsequent encounter (X23.830A) Referral Organization [facility] Network Chemistry Odette roe Referring Provider First Name Robert Referring Provider Last Name Hamiltno Referring Provider Specialty Internal Ga yoni Referred Provider Rishi Parker Jr Referred Provider Specialty Orthopedic S urgery Referral Priority Routine [email or web address] Other Reason for referral (narrative)* Reason Referral for neck pa in Diagnosis 1 Cervicalgia (M54.2) Diagnosis 2 Cervical spondylosis (M47.812) Referral Organization [facility] Network Chemistry [facility] bhupinder Referring Provider First Name Robert Referring Provider Last Name Hamilton Referring Provider Specialty Internal Ga dicjuan Referred Organization [facility] Referred Address [address], [place],[address] Referred Provider Specialty Pain Medicin e Referral Priority Routine General Notes Patient has hx of ce rvical discectomy and fusion and presented w/ persistent neck pain, which radiated upwards causing a headache. She is being referred for treatment with the pain clinic. Clinical Notes Include MRI [email or web address] Other Summary Purpose Family History Relationship Condition Age at Onset Recorded Date/T babar father Heart disease Unknown Diabetes mellitus Unknown sister Asthma Unknown Advance Directives Advance Directive Response Recorded Date/ Time Advance Directives No December 20, 2023 3:16pm Chief Complaint and Reason for Visit Chief Complaint wellness/migraines, neck pain Chief Complaint wellness/migraines, neck pain CC Adult Risk Stratification neck pain Reason for Visit Cervical pain Cervical spondylosis Cervical pain Cervical spondylosis Painful lumpy right breast Additional Source Comments INFORMATION SOURCE (unrecogn ized section and content) DATE CREATED AUTHOR 06/20/2018 [facility] DATE CREATED AUTHOR AUTHOR'S ORGANIZ ATION 07/04/2018 [facility] DATE CREATED AUTHOR AUTHOR'S ORGANIZ ATION 09/18/2020 [facility] DATE CREATED AUTHOR AUTHOR'S ORGANIZ ATION 08/27/2022 [facility] DATE CREATED AUTHOR AUTHOR'S ORGANIZ ATION 10/07/2023 [facility] REASON FOR VISIT (unrecogniz ed section and content) right knee painAdditional Me dicationRefillRefillsNo InformationWants in on TuesdayTBHBPsleep study ordermamm resultsMigrainesLab orderMigrainesMRI resultsmigrainesMigrainesrefills Care Teams (unrecognized sec tion and content) Team Status: Active Member Role Status Hakeem Stanton MD Primary Care Provider Active Team Status: Inactive Member Role Status Hakeem Stanton MD Primary Care Provider Active S tart: December 20, 2023 End: December 20, 2023 Robert Cruz DO Attending Provider Active Sta rt: December 20, 2023 End: December 20, 2023 Team Status: Active Member Role Status Hakeem Stanton MD Primary Care Provider Active S tart: December 27, 2023 Robert Cruz DO Attending Provider Active Sta rt: December 27, 2023 Team Status: Active Member Role Status Hakeem Stanton MD Primary Care Provide r, Attending Provider Active Start: February 22, 2024 Team Status: Inactive Member Role Status Hakeem Stanton MD Primary Care Provider Active S tart: February 24, 2024 End: February 24, 2024 Robert Cruz DO Attending Provider Active Sta rt: February 24, 2024 End: February 24, 2024 Goals (unrecognized section and content) Goals may [...] BE BASED ON THE PRIMARY CLINICAL RECORDS. [facility] [employer] [facility]. provides no warranty or guarantee of the accuracy or completeness of information in this document.
== END 2024-04-04 08:12 | disposition home or self-care (01) ==
LOC: MRI 08:12
PROVIDERS: PCP Internal Medicine; Visit Provider Orthopaedic Surgery
DX: M25.511 Pain in right shoulder (principal); M19.011 Primary osteoarthritis, right shoulder
CPT/HCPCS: 73221

== ENCOUNTER 2024-04-09 14:21 | Outpatient (OUT) | payer OTHER, SELFPAY ==
--- NOTE | 2024-04-09 15:06 | PM.CN ---
Consult Note: HPI Data of Consult Patient: known to practice within the last 3 years Consult date: 04/09/24 Requesting Physician: Miriam Barron MD Primary Care Provider: Robert Cruz DO Consult Narrative Reason for consult: neck pain, left shoulder pain Narrative: 63yof who presents for assessment. continues to have significant neck, shoulder pain. recently saw spinal surgeon, who recommended that she undergo c1-2 mbb. patient not interested in surgery. uses otc meds as needed. continues to stay active at home. cc:: CC: Miriam Barron MD Review of Systems ROS Status of ROS 10 or more systems reviewed and unremarkable except as noted in history and below PFSH [facility] Medical History Osteoarthritis ?M19.90 - Unspecified osteoarthritis, unspecified site (ICD-10) Low back pain ?M54.50 - Low back pain, unspecified (ICD-10) Neck pain ?M54.2 - Cervicalgia (ICD-10) TIA (transient ischemic attack) ?G45.9 - Transient cerebral ischemic attack, unspecified (ICD-10) Hearing deficit ?H91.90 - Unspecified hearing loss, unspecified ear (ICD-10) Acid reflux ?K21.9 - Gastro-esophageal reflux disease without esophagitis (ICD-10) Obesity ?E66.9 - Obesity, unspecified (ICD-10) Diabetes ?E11.9 - Type 2 diabetes mellitus without complications (ICD-10) Hypothyroid ?E03.9 - Hypothyroidism, unspecified (ICD-10) Sleep apnea ?G47.30 - Sleep apnea, unspecified (ICD-10) Irregular heart beat ?I49.9 - Cardiac arrhythmia, unspecified (ICD-10) High cholesterol ?E78.00 - Pure hypercholesterolemia, unspecified (ICD-10) Hypertension ?I10 - Essential (primary) hypertension (ICD-10) Surgical History H/O cosmetic surgery ?Z98.890 - Other specified postprocedural states (ICD-10) H/O thyroidectomy ?E89.0 - Postprocedural hypothyroidism (ICD-10) H/O lumbosacral spine surgery ?Z98.890 - Other specified postprocedural states (ICD-10) H/O operation on finger ?Z98.890 - Other specified postprocedural states (ICD-10) H/O carpal tunnel repair ?Z98.890 - Other specified postprocedural states (ICD-10) H/O arthroscopic knee surgery ?Z98.890 - Other specified postprocedural states (ICD-10) H/O: hysterectomy ?Z90.710 - Acquired absence of both cervix and uterus (ICD-10) Hx of appendectomy ?Z90.49 - Acquired absence of other specified parts of digestive tract (ICD-10) H/O exploratory laparotomy ?Z98.890 - Other specified postprocedural states (ICD-10) H/O: ?Z98.891 - History of uterine scar from previous surgery (ICD-10) H/O shoulder surgery ?Z98.890 - Other specified postprocedural states (ICD-10) H/O cervical spine surgery ?Z98.890 - Other specified postprocedural states (ICD-10) S/P cataract extraction ?Z98.49 - Cataract extraction status, unspecified eye (ICD-10) Meds Home Medications and Allergies Home Medications ?Medication ?Instructions ?Recorded ?Confirmed ?Type atenolol 50 mg tablet 50 mg PO DAILY 09/28/22 08/15/23 History citalopram 40 mg tablet (Celexa) 40 mg PO DAILY 09/28/22 08/15/23 History glimepiride 4 mg tablet 4 mg PO DAILY 09/28/22 08/15/23 History levothyroxine 125 mcg tablet 125 mcg PO DAILY 09/28/22 08/15/23 History (Synthroid) metformin 500 mg tablet 500 mg PO BID 09/28/22 08/15/23 History pravastatin 40 mg tablet 40 mg PO DAILY 09/28/22 08/15/23 History tizanidine 4 mg tablet 4 mg PO BID PRN muscle spasticity 09/28/22 08/15/23 History clonazepam 1 mg tablet (Klonopin) 1.5 mg PO DAILY 05/18/23 08/15/23 History rizatriptan 10 mg tablet (Maxalt) 10 mg PO Q2H PRN migraine headache 05/18/23 08/15/23 History olmesartan 20 mg tablet mg 06/06/23 History baclofen 10 mg tablet 10 mg PO DAILY PRN muscle spasm 09/14/23 Rx #30 tabs meloxicam 7.5 mg tablet 7.5 mg PO DAILY #60 tabs 09/14/23 Rx Allergies Allergy/AdvReac Type Severity Reaction Status Date / Time calcium (From DHEA) Allergy Severe respirator Verified 08/08/23 06:58 arrest calcium carbonate (From DHEA) Allergy Severe respirator Verified 08/08/23 06:58 arrest prasterone (DHEA) (From DHEA) Allergy Severe respirator Verified 08/08/23 06:58 arrest hydromorphone (From Dilaudid) Allergy Intermediate Verified 08/08/23 06:58 iodine Allergy Intermediate Verified 08/08/23 06:58 latex Allergy Intermediate Verified 08/08/23 06:58 meperidine (From Demerol) Allergy Intermediate Verified 08/08/23 06:58 sumatriptan (From Imitrex) Allergy Intermediate Verified 08/08/23 06:58 Exam Narrative Exam Narrative: Psych-alert and oriented x 3.? Attentive and appropriate, constitutionally normal, displays normal mood and affect per situation.? There are no obvious deficits in memory, reasoning, or intellect.? Skin-no obvious rashes, bruising, or erythema noted to the patient's area of pain. Extremities-upper extremities are warm with minimal edema and palpable pulses. Cervical- tenderness to palpation noted in the cervical spine and paraspinal musculature.? Pain is elicited with extension, and lateral rotation of the cervical spine.? Range of motion is slightly diminished due to pain. Coordination remains intact.? Gait remains non-antalgic. Assessment and Plan Assessment and Plan (1) Cervical postlaminectomy syndrome: (2) Cervical spondylosis: Plan 63yof who presents for assessment. failed conservative measures, as noted. has undergone a variety of interventional modalities, without lasting benefit. has had multiple neck surgeries before. discussed that given her persistence of symptoms and lack of response to more conservative measures, she would be appropriate candidate for scs trial. she expressed understanding, provided her with info. meds reviewed, no changes. follow up as needed.
== END 2024-04-09 14:22 | disposition home or self-care (01) ==
LOC: PM 14:22
PROVIDERS: PCP Internal Medicine; Visit Provider Anesthesiology
DX: M96.1 Postlaminectomy syndrome, not elsewhere classified (principal); M47.812 Spondylosis without myelopathy or radiculopathy, cervical region
CPT/HCPCS: G0463

== ENCOUNTER 2024-05-10 12:19 | Day surgery (SDC) | payer OTHER, SELFPAY ==
--- OUTSIDE RECORDS SUMMARY | 2024-05-10 12:31 | XMS_ITS | CCD ---
Author Organization [facility] Care Team Providers Care Stain Dipper Name Role Phone JENNA LENTZ Admitting Unavailable [...] HOTerrence ., DR MAZARIEGOS Consulting Unavailable PRISCILLA Soares, DR MAZARIEGOS Admitting Unavailable HAMILTON, DR NINO Primary Care Unavailable Anderson HENLEY, Miriam Stephenson Attending Unavailable Gimadonnaitis , Miriam Stephenson Attending Unavailable Anderson HENLEY, Andrius Sachin Attending Unavailable Anderson HENLEY, Andrius Sachin Attending Unavailable Anderson HENLEY, Andrius Sachin Attending Unavailable Gibreezy HENLEY, Miriam Stephenson Attending Unavailable Anderson HENLEY, Miriam Stephenson Attending Unavailable Allergies Allergy Classification Reported Allergen(s) Allergy Type Date of Onset Reaction(s) Facility (2 sources) Contrast media; Translations: [CONTRAST DYE] Propensity to adverse reactions to drug (disorder) 09-30-19 11 [facility] Repository (2 sources) HYDROmorphone; Translations: [HYDROMORPHONE (BULK)] Drug Allergy 08-17-19 17 [facility] Repository (20 sources) Latex; Translations: [LATEX] Propensity to adverse reactions to drug (disorder) 09-30-19 11 Unknown, Unknown Reaction [facility] Repository (2 sources) Meperidine; Translations: [MEPERIDINE (PF)] Drug Allergy 09-30-19 11 [facility] Repository (2 sources) Povidone-Iodine; Translations: [POVIDONE-IODINE] Drug Allergy 10-21-19 17 [facility] Repository (2 sources) SUMAtriptan; Translations: [SUMATRIPTAN SUCCINATE] Drug Allergy 09-30-19 11 [facility] Repository (2 sources) INFLUENZA VACCINE TRI-SP 09-10; Translations: [INFLUENZA VACCINE TRI-SP 09-10] Propensity to adverse reactions to drug (disorder) 09-30-19 11 [facility] Repository (3 sources) DHE; Translations: [DHE] Propensity to adverse reactions to drug (disorder) 10-24-19 13 [facility] Repository (19 sources) HYDROmorphone Drug Allergy 12-20-19 24 Unknown, Unknown Reaction [facility] (20 sources) Iodine; Translations: [iodine] Drug Allergy 10-24-19 13 Unknown, Unknown Reaction [facility] Repository (19 sources) Meperidine Drug Allergy 12-20-19 24 Unknown, Unknown Reaction [facility] (19 sources) SUMAtriptan Drug Allergy 12-20-19 24 Unknown, Unknown Reaction [facility] (19 sources) Fluad Drug allergy 12-20-19 24 Unknown, Unknown Reaction [facility] (17 sources) DHEA Drug allergy Unknown [facility] Other (1 source) HYDROmorphone Drug Allergy 10-24-19 13 [facility] Repository (1 source) Meperidine Drug Allergy 10-24-19 13 [facility] Repository (1 source) Plasmin Drug Allergy 10-24-19 13 [facility] Repository (12 sources) influenza A virus (H1N1) antigen / influenza A virus (H3N2) antigen / influenza B virus antigen Drug Allergy 11-21-19 14 Comment:FLU VACCINE [facility] Other (12 sources) Contraindication to Flu Injection Propensity to adverse reactions 03-07-20 14 Comment:advers e rxn/side effects [facility] Other (3 sources) patient allergy list reviewed by nurse or physicia Propensity to adverse reactions 12-22-19 14 Comment:Done [facility] Other (2 sources) Calcium Drug Allergy 12-20-19 24 Unknown Reaction [facility] (2 sources) Calcium Carbonate Drug Allergy 12-20-19 Unknown Reaction [facility] (2 sources) prasterone (DHEA) Allergy to substance 12-20-19 Unknown Reaction [facility] (2 sources) Fluad Quadrivalent Allergy to substance 04-29-19 Comment:FLU VACCINE [facility] Medications Current Medications Medication Drug [...] daily Citalopram Active 40 MG PO Daily October 18, 2023 8:37am Start: 10-22-2022 take [...] every two hours as needed for headache Maxalt-TEAM GUIDE 10 MG 1 tablet Orally PRN headache, [...] 4 MG PO Daily at bedtime 90 December 16, 2023 12:52pm take 1/2 [...] Basophils (Bld) [#/Vol] 0.1 10 3/uL 0.0-0.1 [facility] Basophils/100 WBC Auto (Bld) on 12-27-2023 Basophils/100 WBC (Bld) 1.0 % 0.2-2.0 [facility] Cholesterol in LDL Calc [Mas s/Vol]on 12-27-2023 Cholesterol in LDL [Mass/Vol] 63.0 mg/dL [facility] Comment on above: <100 mg/dl [id number] 0-129 mg/dl NEAR OR ABOVE [id number] mg/dl BORDERLINE AHUP293-365 mg/dl HIGH>190 mg/dl VERY HIGH Cholesterol in VLDL Calc [Ma ss/Vol]on 12-27-2023 Cholesterol in VLDL [Mass/Vol] 45.8 mg/dL [facility] Eosinophils/100 WBC Auto (Bl d)on 12-27-2023 Eosinophils/100 WBC (Bld) 8.3 % High 0.9-7.0 [facility] Erythrocyte distribution wid th Auto (RBC) [Ratio]on 12-27-2023 Erythrocyte distribution width (RBC) [Ratio] 11.9 % 11.0-15.0 [facility] Estimated glomerular filtrat ion rate (GFR) non- Americanon 12-27-2023 GFR/1.73 sq M.predicted among non-blacks MDRD (S/P/Bld) [Vol rate/Area] 47 mL/min/{1.73_m2} Low >=60 [facility] Globulin Calc (S) [Mass/Vol] on 12-27-2023 Globulin (S) [Mass/Vol] 3.2 g/dL [facility] Glucose mean value [Mass/vol ume] in Blood Estimated from glycated hemoglobinon 12-27-2023 Average glucose Estimated from glycated hemoglobin (Bld) [Mass/Vol] 143 mg/dL [facility] Hematocrit Auto (Bld) [Volum e fraction]on 12-27-2023 Hematocrit (Bld) [Volume fraction] 39.7 % 36.0-48.0 [facility] Hemoglobin [Mass/volume] in Bloodon 12-27-2023 Hemoglobin (Bld) [Mass/Vol] 12.9 g/dL 12.0-16.0 [facility] Laboratory - Chemistry and C hemistry - challengeon 12-27-2023 Albumin [Mass/Vol] 3.7 g/dL 3.4-5.0 [facility] ALP [Catalytic activity/Vol] 61 U/L 46-116 [facility] ALT [Catalytic activity/Vol] 36 U/L 14-59 [facility] AST [Catalytic activity/Vol] 24 U/L 15-37 [facility] Bilirubin [Mass/Vol] 0.6 mg/dL 0.2-1.0 [facility] Calcium [Mass/Vol] 9.2 mg/dL 8.5-10.1 [facility] Chloride [Moles/Vol] 101 mmol/L 98-107 [facility] Cholesterol [Mass/Vol] 146 mg/dL <=200 [facility] Cholesterol in HDL [Mass/Vol] 38 mg/dL Low 40-60 [facility] Comment on above: > or =60 mg/dl - LOW CARDIOVASCULAR RISK<40 mg/dl - HIGH CARDIOVASCULAR RISK CO2 [Moles/Vol] 26.8 mmol/L 21.0-32.0 [facility] Creatinine [Mass/Vol] 1.17 mg/dL High 0.55-1.02 [facility] GFR/1.73 sq M.predicted MDRD (S/P/Bld) [Vol rate/Area] 56 mL/min/{1.73_m2} Low >=60 [facility] Glucose [Mass/Vol] 138 mg/dL High 74-106 [facility] Potassium [Moles/Vol] 4.5 mmol/L 3.5-5.1 [facility] Protein [Mass/Vol] 6.9 g/dL 6.4-8.2 [facility] Sodium [Moles/Vol] 138 mmol/L 136-145 [facility] Triglyceride [Mass/Vol] 229 mg/dL High <=150 [facility] TSH Qn 0.834 m[IU]/L 0.358-3.740 [facility] Urea nitrogen [Mass/Vol] 23.0 mg/dL High 7.0-18.0 [facility] Urea nitrogen/Creatinine [Mass ratio] 19.7 mg/mg [facility] Laboratory - Hematology and Cell countson 12-27-2023 HbA1c (Bld) [Mass fraction] 6.6 % High 4.5-6.2 [facility] Comment on above: ADA RECOMMENDED LIMI T 4.0 - 6.0ADA THERAPEUTIC TARGET < 7.0ACTION SUGGESTED> 7.0 Immature granulocytes/100 WBC (Bld) 0.4 % 0.0-0.5 [facility] Leukocytes [#/volume] correc chip for nucleated erythrocytes in Blood by Automated counon 12-27-2023 WBC corrected for nucl RBC Auto (Bld) [#/Vol] 5.2 10 3/uL 4.0-11.0 [facility] Lymphocytes Auto (Bld) [#/Vo l]on 12-27-2023 Lymphocytes (Bld) [#/Vol] 2.2 10 3/uL 1.2-3.8 [facility] Lymphocytes/100 WBC Auto (Bl d)on 12-27-2023 Lymphocytes/100 WBC (Bld) 42.1 % 20.5-60.0 [facility] MCH Auto (RBC) [Entitic mass ]on 12-27-2023 MCH (RBC) [Entitic mass] 28.5 pg 26.7-34.0 [facility] MCHC Auto (RBC) [Mass/Vol]on 12-27-2023 MCHC (RBC) [Mass/Vol] 32.5 g/dL 29.9-35.2 [facility] MCV Auto (RBC) [Entitic vol] on 12-27-2023 MCV (RBC) [Entitic vol] 87.8 fL 81.0-99.0 [facility] Monocytes Auto (Bld) [#/Vol] on 12-27-2023 Monocytes (Bld) [#/Vol] 0.3 10 3/uL 0.3-0.8 [facility] Monocytes/100 WBC Auto (Bld) on 12-27-2023 Monocytes/100 WBC (Bld) 6.4 % 1.7-12.0 [facility] Neutrophils Auto (Bld) [#/Vo l]on 12-27-2023 Neutrophils (Bld) [#/Vol] 2.2 10 3/uL 1.4-6.5 [facility] Neutrophils/100 WBC Auto (Bl d)on 12-27-2023 Neutrophils/100 WBC (Bld) 41.8 % Low 43.0-75.0 [facility] No Panel Informationon 12-26 Eosinophils # (Auto) 0.4 10 3/uL 0.0-0.7 [facility] Immature Granulocyte # (Auto) 0.02 10 3/uL 0.00-0.03 [facility] Platelet mean volume Auto (B ld) [Entitic vol]on 12-27-2023 Platelet mean volume (Bld) [Entitic vol] 9.6 fL 9.5-13.5 [facility] Platelets Auto (Bld) [#/Vol] on 12-27-2023 Platelets (Bld) [#/Vol] 190 10 3/uL 150-450 [facility] RBC Auto (Bld) [#/Vol]on RBC (Bld) [#/Vol] 4.52 10 6/uL 4.20-5.40 [facility] Serum or plasma albumin/glob ulin mass ratioon 12-27-2023 Albumin/Globulin [Mass ratio] 1.2 {ratio} [facility] Serum or plasma anion gap de terminationon 12-27-2023 Anion gap [Moles/Vol] 14.7 mmol/L [facility] Serum or plasma total choles terol/high density lipoprotein (HDL) cholesterol mass desiree 12-27-2023 Cholesterol.total/Chol esterol in HDL [Mass ratio] 3.8 {ratio} [facility] Comment on above: 3.3 - 4.4 [...] BERNY CANO Date: 2022-08-24 07:19 Normal [facility] CBC AUTO DIFFon 03-30-2022 BASO # 0.0 103/ul Normal 0.0-0.1 [facility] Comment on above: Performed By: #### C BC #### [facility] [address] [address] [address] Rc Foster Basophils/100 WBC (Bld) 0.4 % Normal 0.2-2.0 [facility] Comment on above: Performed By: #### C BC #### [facility] [address] [address] [address] Rc Foster EO # 0.3 103/ul Normal 0.0-0.7 [facility] Comment on above: Performed By: #### C BC #### [facility] [address] [address] [address] Rc Foster Eosinophils/100 WBC (Bld) 4.9 % Normal 0.9-7.0 [facility] Comment on above: Performed By: #### C BC #### [facility] [address] [address] [address] Rc Foster Erythrocyte distribution width (RBC) [Ratio] 12.2 % Normal 11.0-15.0 [facility] Comment on above: Performed By: #### C BC #### [facility] [address] [address] [address] Rc Foster Hematocrit (Bld) [Volume fraction] 39.8 % Normal 36.0-48.0 [facility] Comment on above: Performed By: #### C BC #### [facility] [address] [address] [address] Rc Foster Hemoglobin (Bld) [Mass/Vol] 13.1 g/dL Normal 12.0-16.0 [facility] Comment on above: Performed By: #### C BC #### [facility] [address] [place] [address] Dr. Rc Foster IG # 0.02 10e3/ul Normal 0.00-0.03 [facility] Comment on above: Performed By: #### C BC #### [facility] [address] [place] [address] Dr. Rc Foster IG % 0.4 % Normal 0.0-0.5 [facility] Comment on above: Performed By: #### C BC #### [facility] [address] [place] [address] Dr. Rc Foster LYMPH # 2.1 103/ul Normal 1.2-3.8 [facility] Comment on above: Performed By: #### C BC #### [facility] [address] [place] [address] Dr. Rc Foster Lymphocytes/100 WBC (Bld) 37.1 % Normal 20.5-60.0 [facility] Comment on above: Performed By: #### C BC #### [facility] [address] [place] [address] Dr. Rc Foster MANUAL DIFF REQ NO Normal [facility] Comment on above: Performed By: #### C BC #### [facility] [address] [place] [address] Dr. Rc Foster MCH (RBC) [Entitic mass] 28.7 pg Normal 26.7-34.0 [facility] Comment on above: Performed By: #### C BC #### [facility] [address] [place] [address] Dr. Rc Foster MCHC (RBC) [Mass/Vol] 32.9 g/dL Normal 29.9-35.2 [facility] Comment on above: Performed By: #### C BC #### [facility] [address] [place] [address] Dr. Rc Foster MCV (RBC) [Entitic vol] 87.1 fL Normal 81.0-99.0 [facility] Comment on above: Performed By: #### C BC #### [facility] [address] [place] [address] Dr. Rc Foster MONO # 0.4 103/ul Normal 0.3-0.8 [facility] Comment on above: Performed By: #### C BC #### [facility] [address] [place] [address] Dr. Rc Foster Monocytes/100 WBC (Bld) 6.7 % Normal 1.7-12.0 [facility] Comment on above: Performed By: #### C BC #### [facility] [address] [place] [address] Dr. Rc Foster NEUT # 2.9 103/ul Normal 1.4-6.5 [facility] Comment on above: Performed By: #### C BC #### [facility] [address] [place] [address] Dr. Rc Foster Neutrophils/100 WBC (Bld) 50.5 % Normal 43.0-75.0 [facility] Comment on above: Performed By: #### C BC #### [facility] [address] [place] [address] Dr. Rc Foster Platelet mean volume (Bld) [Entitic vol] 9.7 fL Normal 9.5-13.5 [facility] Comment on above: Performed By: #### C BC #### [facility] [address] [place] [address] Dr. Rc Foster PLT 189 103/ul Normal 150-450 [facility] Comment on above: Performed By: #### C BC #### [facility] [address] [place] [address] Dr. Rc Foster RBC 4.57 106/ul Normal 4.20-5.40 [facility] Comment on above: Performed By: #### C BC #### [facility] [address] [place] [address] Dr. Rc Foster WBC 5.7 103/ul Normal 4.0-11.0 [facility] Comment on above: Performed By: #### C BC #### [facility] [address] [place] [address] Dr. Rc Foster GLYCOHEMOGLOBIN A1Con 2021 ADA RECOMMENDATION SEE BELOW Normal [facility] Comment on above: Result Comment: ADA RECOMMENDED LIMIT 4.0 - 6.0 ADA THERAPEUTIC TARGET < 7.0 ACTION SUGGESTED > 7.0 Performed By: #### A 1C #### [facility] [address] [address] [address] Rc Foster Glucose [Mass/Vol] 143 mg/dL Normal [facility] Comment on above: Performed By: #### A 1C #### [facility] [address] [address] [address] Rc Foster HbA1c (Bld) [Mass fraction] 6.6 % Critically high 4.5-6.2 [facility] Comment on above: Performed By: #### A 1C #### [facility] [address] [address] [address] Rc Foster LIPID PROFILEon 03-30-2022 CHOL-HDL RATIO NORM SEE BELOW Normal [facility] Comment on above: Result Comment: 3.3 - 4.4 LOW RISK 4.4 - 7.1 AVERAGE RISK 7.1 - 11.0 MODERATE RISK >11.0 HIGH RISK Performed By: #### T SH, CMP, LIPID ####[facility] [address] [address]DrRodger Foster Cholesterol [Mass/Vol] 184 mg/dL Normal <=[address] [facility] Comment on above: Performed By: #### T SH, CMP, LIPID ####[facility] [address] [id number] Foster Cholesterol in HDL [Mass/Vol] 42 mg/dL Normal 40-60 [facility] Comment on above: Performed By: #### T SH, CMP, LIPID ####[facility] [address] [id number] Foster Cholesterol in LDL [Mass/Vol] 87.0 mg/dL Normal [facility] Comment on above: Performed By: #### T SH, CMP, LIPID ####[facility] [address] [address]DrRodger Foster Cholesterol.total/Chol esterol in HDL [Mass ratio] 4.4 {ratio} Normal [facility] Comment on above: Performed By: #### T SH, CMP, LIPID ####[facility] [address] [address]Dr. Rc Foster HDL NORMAL > or = 60 mg/dl - LO W CARDIOVASCULAR RISK <40 mg/dl - HIGH CARDIOVASCULAR RISK Normal [facility] Comment on above: Performed By: #### T SH, CMP, LIPID ####[facility] [address] [address]Dr. Rc Foster LDL CALC NORMAL SEE BELOW Normal [facility] Comment on above: Result Comment: <100 mg/dl OPTIMAL 100 - 129 mg/dl NEAR OR ABOVE OPTIMAL 130 - 159 mg/dl BORDERLINE HIGH 160 - 189 mg/dl HIGH >190 mg/dl VERY HIGH Performed By: #### T MARY JANE, CMP, LIPID ####[facility] [address] [address]Dr. Rc Foster Triglyceride [Mass/Vol] 275 mg/dL Critically high <=150 [facility] Comment on above: Performed By: #### T MARY JANE CMP, LIPID ####[facility] [address] [address]Dr. Rc Foster VLDL CALC 55.0 mg/dL Normal [facility] Comment on above: Performed By: #### T SH, CMP, LIPID ####[facility] [address] [address]Dr. Rc Foster PROF 14(COMP METB)on 022 Albumin [Mass/Vol] 4.0 g/dL Normal 3.4-5.0 [facility] Comment on above: Performed By: #### T SH, CMP, LIPID ####[facility] [address] [address]Dr. Rc Foster Albumin/Globulin [Mass ratio] 1.1 {ratio} Normal [facility] Comment on above: Performed By: #### T SH, CMP, LIPID ####[facility] [address] [id number]. Rc Foster ALP [Catalytic activity/Vol] 71 U/L Normal 46-116 [facility] Comment on above: Performed By: #### T SH, CMP, LIPID ####[facility] [address] [address]Dr. Rc Foster ALT [Catalytic activity/Vol] 29 U/L Normal 14-59 [facility] Comment on above: Performed By: #### T SH, CMP, LIPID ####[facility] [address] [address]Dr. Rc Foster Anion gap [Moles/Vol] 13.2 mmol/L Normal [facility] Comment on above: Performed By: #### T MARY JANE, CMP, LIPID ####[facility] [address] [place], [place] [address]Dr. Rc Foster AST [Catalytic activity/Vol] 17 U/L Normal 15-37 [facility] Comment on above: Performed By: #### T MARY JANE, CMP, LIPID ####[facility] [address] [place], [place] [address]Dr. Rc Foster Bilirubin [Mass/Vol] 0.6 mg/dL Normal 0.2-1.0 [facility] Comment on above: Performed By: #### T SH, CMP, LIPID ####[facility] [address] [address]Dr. Rc Foster Calcium [Mass/Vol] 9.0 mg/dL Normal 8.5-10.1 [facility] Comment on above: Performed By: #### T SH, CMP, LIPID ####[facility] [address] [address]Dr. Rc Foster Chloride [Moles/Vol] 102 mmol/L Normal 98-107 [facility] Comment on above: Performed By: #### T SH, CMP, LIPID ####[facility] [address] [address]Dr. Rc Foster CO2 [Moles/Vol] 27.3 mmol/L Normal 21.0-32.0 [facility] Comment on above: Performed By: #### T SH, CMP, LIPID ####[facility] [address] [address]Dr. Rc Foster Creatinine [Mass/Vol] 1.00 mg/dL Normal 0.55-1.02 [facility] Comment on above: Performed By: #### T SH, CMP, LIPID ####[facility] [address] [address]Dr. Rc Foster EGFR-AF UGANDAN >60 Normal >=60 [facility] Comment on above: Performed By: #### T SH, CMP, LIPID ####[facility] [address] [address]Dr. Rc Foster EGFR-NON AF UGANDAN 56 mL/min/1.73m2 Critically low >=60 [facility] Comment on above: Performed By: #### T SH, CMP, LIPID ####[facility] [address] [address]Dr. Rc Foster Globulin (S) [Mass/Vol] 3.5 g/dL Normal [facility] Comment on above: Performed By: #### T SH, CMP, LIPID ####[facility] [address] [address]Dr. Rc Foster Glucose [Mass/Vol] 159 mg/dL Critically high 74-106 [facility] Comment on above: Performed By: #### T SH, CMP, LIPID ####[facility] [address] [address]Dr. Rc Foster Potassium [Moles/Vol] 4.5 mmol/L Normal 3.5-5.1 [facility] Comment on above: Performed By: #### T SH, CMP, LIPID ####[facility] [address] [address]Dr. Rc Foster Protein [Mass/Vol] 7.5 g/dL Normal 6.4-8.2 [facility] Comment on above: Performed By: #### T SH, CMP, LIPID ####[facility] [address] [address]Dr. Rc Foster Sodium [Moles/Vol] 138 mmol/L Normal 136-145 [facility] Comment on above: Performed By: #### T SH, CMP, LIPID ####[facility] [address] [place], [place] [address]Jv. Rc Foster Urea nitrogen [Mass/Vol] 23.0 mg/dL Critically high 7.0-18.0 [facility] Comment on above: Performed By: #### T SH, CMP, LIPID ####[facility] [address] [place], [place] [address]Ll. Rc Foster Urea nitrogen/Creatinine [Mass ratio] 23.0 mg/mg Normal [facility] Comment on above: Performed By: #### T SH, CMP, LIPID ####[facility] [address] [place], [place] [address]Ty. Rc Foster TSHon 03-30-2022 TSH 2.807 uIU/mL Normal 0.358-3.740 [facility] Comment on above: Performed By: #### T SH, CMP, LIPID ####[facility] [address] [place], [place] [address]Vk. Rc Foster US THYROIDon 03-30-2022 US THYROID [...] BERNY CANO Date: 2022-03-30 11:03 Normal [facility] MAMM SCREEN 3D LEX CADon 03-19-2022 MG MAMM SCREEN 3D LEX CAD Patient: CARROLL HARDEN Exam Date: 03/19/2022 : 1960 Gender:F Ordering : DR ROBERT CRUZ D.O. Admission #: [id number] Family : Order #: [id number] CLICK HERE TO VIEW EXAM RADIOLOGY REPORT [...] Treatments None Family Cancers None LOCATION: [facility] BREAST COMPOSITION: Scattered areas fibroglandular density. FINDINGS: [...] Cano M.D. on 03/23/2022 at 11:59 Normal [facility] CBC AUTO DIFFon 11-27-2021 BASO # 0.0 103/ul Normal 0.0-0.1 [facility] Comment on above: Performed By: #### C BC #### [facility] [address] [address] [address] Rc Foster Basophils/100 WBC (Bld) 0.7 % Normal 0.2-2.0 [facility] Comment on above: Performed By: #### C BC #### [facility] [address] [place] [address] Dr. Rc Foster EO # 0.6 103/ul Normal 0.0-0.7 [facility] Comment on above: Performed By: #### C BC #### [facility] [address] [place] [address] Dr. Rc Foster Eosinophils/100 WBC (Bld) 10.3 % Critically high 0.9-7.0 [facility] Comment on above: Performed By: #### C BC #### [facility] [address] [place] [address] Dr. Rc Foster Erythrocyte distribution width (RBC) [Ratio] 12.4 % Normal 11.0-15.0 [facility] Comment on above: Performed By: #### C BC #### [facility] [address] [place] [address] Dr. Rc Foster Hematocrit (Bld) [Volume fraction] 41.2 % Normal 36.0-48.0 [facility] Comment on above: Performed By: #### C BC #### [facility] [address] [place] [address] Dr. Rc Foster Hemoglobin (Bld) [Mass/Vol] 13.4 g/dL Normal 12.0-16.0 [facility] Comment on above: Performed By: #### C BC #### [facility] [address] [place] [address] Dr. Rc Foster IG # 0.01 10e3/ul Normal 0.00-0.03 [facility] Comment on above: Performed By: #### C BC #### [facility] [address] [place] [address] Dr. Rc Foster IG % 0.2 % Normal 0.0-0.5 [facility] Comment on above: Performed By: #### C BC #### [facility] [address] [place] [address] Dr. Rc Foster LYMPH # 2.3 103/ul Normal 1.2-3.8 [facility] Comment on above: Performed By: #### C BC #### [facility] [address] [place] [address] Dr. Rc Foster Lymphocytes/100 WBC (Bld) 40.6 % Normal 20.5-60.0 [facility] Comment on above: Performed By: #### C BC #### [facility] [address] [place] [address] Dr. Rc Foster MANUAL DIFF REQ NO Normal [facility] Comment on above: Performed By: #### C BC #### [facility] [address] [place] [address] Dr. Rc Foster MCH (RBC) [Entitic mass] 28.8 pg Normal 26.7-34.0 [facility] Comment on above: Performed By: #### C BC #### [facility] [address] [place] [address] Dr. Rc Foster MCHC (RBC) [Mass/Vol] 32.5 g/dL Normal 29.9-35.2 [facility] Comment on above: Performed By: #### C BC #### [facility] [address] [place] [address] Dr. Rc Foster MCV (RBC) [Entitic vol] 88.6 fL Normal 81.0-99.0 [facility] Comment on above: Performed By: #### C BC #### [facility] [address] [place] [address] Dr. Rc Foster MONO # 0.4 103/ul Normal 0.3-0.8 [facility] Comment on above: Performed By: #### C BC #### [facility] [address] [place] [address] Dr. Rc Foster Monocytes/100 WBC (Bld) 7.6 % Normal 1.7-12.0 [facility] Comment on above: Performed By: #### C BC #### [facility] [address] [place] [address] Dr. Rc Foster NEUT # 2.3 103/ul Normal 1.4-6.5 [facility] Comment on above: Performed By: #### C BC #### [facility] [address] [place] [address] Dr. Rc Foster Neutrophils/100 WBC (Bld) 40.6 % Critically low 43.0-75.0 [facility] Comment on above: Performed By: #### C BC #### [facility] [address] [place] [address] Dr. Rc Foster Platelet mean volume (Bld) [Entitic vol] 9.6 fL Normal 9.5-13.5 [facility] Comment on above: Performed By: #### C BC #### [facility] [address] [place] [address] Dr. Rc Foster PLT 194 103/ul Normal 150-450 [facility] Comment on above: Performed By: #### C BC #### [facility] [address] [place] [address] Dr. Rc Foster RBC 4.65 106/ul Normal 4.20-5.40 [facility] Comment on above: Performed By: #### C BC #### [facility] [address] [place] [address] Dr. Rc Foster WBC 5.5 103/ul Normal 4.0-11.0 [facility] Comment on above: Performed By: #### C BC #### [facility] [address] [place] [address] Dr. Rc Foster GLYCOHEMOGLOBIN A1Con 2021 ADA RECOMMENDATION SEE BELOW Normal [facility] Comment on above: Result Comment: ADA RECOMMENDED LIMIT 4.0 - 6.0 ADA THERAPEUTIC TARGET < 7.0 ACTION SUGGESTED > 7.0 Performed By: #### A 1C #### [facility] [address] [place] [address] Dr. Rc Foster Glucose [Mass/Vol] 131 mg/dL Normal [facility] Comment on above: Performed By: #### A 1C #### [facility] [address] [place] [address] Dr. Rc Foster HbA1c (Bld) [Mass fraction] 6.2 % Normal 4.5-6.2 [facility] Comment on above: Performed By: #### A 1C #### [facility] [address] [place] [address] Dr. Rc Foster PROF CHEM 8 (BAS METB)on Anion gap [Moles/Vol] 15.2 mmol/L Normal [facility] Comment on above: Performed By: #### T SH, BMP #### [facility] [address] [place] [address] Dr. Rc Foster Calcium [Mass/Vol] 8.5 mg/dL Normal 8.5-10.1 [facility] Comment on above: Performed By: #### T SH, BMP #### [facility] [address] [address] [address] Rc Foster Chloride [Moles/Vol] 100 mmol/L Normal 98-107 [facility] Comment on above: Performed By: #### T SH, BMP #### [facility] [address] [place] [address] Dr. Rc Foster CO2 [Moles/Vol] 26.6 mmol/L Normal 21.0-32.0 [facility] Comment on above: Performed By: #### T SH, BMP #### [facility] [address] [address] [address] Rc Foster Creatinine [Mass/Vol] 1.15 mg/dL Critically high 0.55-1.02 [facility] Comment on above: Performed By: #### T SH, BMP #### [facility] [address] [place] [address] Dr. Rc Foster EGFR-AF UGANDAN 58 mL/min/1.73m2 Critically low >=60 [facility] Comment on above: Performed By: #### T SH, BMP #### [facility] [address] [place] [address] Dr. Rc Foster EGFR-NON AF UGANDAN 48 mL/min/1.73m2 Critically low >=60 [facility] Comment on above: Performed By: #### T SH, BMP #### [facility] [address] [place] [address] Dr. Rc Foster Glucose [Mass/Vol] 211 mg/dL Critically high 74-106 [facility] Comment on above: Performed By: #### T SH, BMP #### [facility] [address] [place] [address] Dr. Rc Foster Potassium [Moles/Vol] 4.8 mmol/L Normal 3.5-5.1 [facility] Comment on above: Performed By: #### T SH, BMP #### [facility] [address] [place] [address] Dr. Rc Foster Sodium [Moles/Vol] 137 mmol/L Normal 136-145 [facility] Comment on above: Performed By: #### T SH, BMP #### [facility] [address] [place] [address] Dr. Rc Foster Urea nitrogen [Mass/Vol] 33.0 mg/dL Critically high 7.0-18.0 [facility] Comment on above: Performed By: #### T SH, BMP #### [facility] [address] [place] [address] Dr. Rc Foster Urea nitrogen/Creatinine [Mass ratio] 28.7 mg/mg Normal [facility] Comment on above: Performed By: #### T SH, BMP #### [facility] [address] [place] [address] Dr. Rc Foster TSHon 11-27-2021 TSH 0.744 uIU/mL Normal 0.358-3.740 [facility] Comment on above: Performed By: #### T SH, BMP #### [facility] [address] [place] [address] Dr. Rc Foster SYMPTOMATIC COVID-19 ANTIGEN on 10-28-2021 EUA Statement SEE BELOW Normal [facility] Comment on above: Result Comment: This test [...] revoked sooner. Performed By: #### C VDAGS ####[facility] [address] [place], [place] [address]WfRodger Foster SARS-CoV-2 (COVID-19) RNA YARED+probe Ql (Unsp spec) Negative Normal NEGATIVE [facility] Comment on above: Performed By: #### C VDAGS ####[facility] [address] [place], [place] [address]LwRodger Foster GLYCOHEMOGLOBIN A1Con 2021 ADA RECOMMENDATION SEE BELOW Normal [facility] Comment on above: Result Comment: ADA RECOMMENDED LIMIT 4.0 - 6.0 ADA THERAPEUTIC TARGET < 7.0 ACTION SUGGESTED > 7.0 Performed By: #### A 1C #### [facility] [address] [address] [address] Rc Foster Glucose [Mass/Vol] 128 mg/dL Normal [facility] Comment on above: Performed By: #### A 1C #### [facility] [address] [address] [address] Rc Foster HbA1c (Bld) [Mass fraction] 6.1 % Normal 4.5-6.2 [facility] Comment on above: Performed By: #### A 1C #### [facility] [address] [address] [address] Rc Foster Discharge CCD Assessmenton 0 09-06-2020 Discharge CCD Assessment [facility] Patient: CARROLL HARDEN [address] [place] [address] MR#: [id number] DISCHARGE CCD ASSESSMENT : 58 Service Date: 09/06/20 1018 Discharge CCD Assessment Assessment Patient discharged home to continue exercises, pain medication, and wound care Electronically Signed eSign Date and Time Melyssa Flores 09/06/20 1019 Tera Henrandez MD Normal [facility] GLUCOSE METERon 09-06-2020 Glucose [Mass/Vol] 126 mg/dL High 70-99 [facility] Comment on above: Order Comment: CONSE RVATION Result Comment: Fast ing GLUCOSE reference range has been updated per (ADA) [place] [employer]'s recommendation. 07/18/2018 Performed By: #### L 500.56981 ####Test performed at: [place] [address] Glucose [Mass/Vol] 205 mg/dL High 70-99 [facility] Comment on above: Order Comment: CONSE RVATION Result Comment: Fast ing GLUCOSE reference range has been updated per (ADA) [place] [employer]'s recommendation. 07/18/2018 Insulin per sl scale Performed By: #### L 500.75171 #### Test performed at: [place] [address] Internal Med Progress Noteon 09-06-2020 Internal Med Progress Note [facility] Patient: CARROLL HARDEN [address] [place] [address] MR#: [id number] PROGRESS NOTE - Internal Medicine : 58 [...] RES, Katarzy na MD 09/06/20 1134 Normal [facility] Orthopedic Progress Noteon 0 09-06-2020 Orthopedic Progress Note [facility] Patient: CARROLL HARDEN [address] [place] [address] MR#: [id number] PROGRESS NOTE - Orthopedic : 58 Service [...] RN 09/06/20 1022 Tera Hernandez MD Normal [facility] Anesthesia Noteon 09-05-2020 Anesthesia Note [facility] Patient: CARROLL HARDEN [address] [place] [address] MR#: [id number] ANESTHESIA NOTE : Service Date: 09/05/20811 Post-anesthesia [...] Signed eSign Date and Time Krystian Akers STUDENT SUPPORT ADVISOR-DRILLER'S ASSISTANT 09/05/20 0813 Chu Glez MD Normal [facility] BASIC MET PANELon 09-05-2020 Anion gap [Moles/Vol] 12 mmol/L Normal 6-18 [facility] Comment on above: Performed By: #### L 500.82660, L500.03564 #### Test performed at: [address] [address] Calcium [Mass/Vol] 8.7 mg/dL Normal 8.5-10.1 [facility] Comment on above: Performed By: #### L 500.07840, L500.31030 #### Test performed at: [address] [address] Chloride [Moles/Vol] 101 mmol/L Normal 98-107 [facility] Comment on above: Performed By: #### L 500.09564, L500.75859 #### Test performed at: [address] [address] CO2 [Moles/Vol] 25 mmol/L Normal 21-32 [facility] Comment on above: Performed By: #### L 500.93177, L500.17450 #### Test performed at: [address] [address] Creatinine [Mass/Vol] 1.020 mg/dL Normal 0.550-1.020 [facility] Comment on above: Performed By: #### L 500.05057, L500.37472 #### Test performed at: [address] [address] Glucose [Mass/Vol] 264 mg/dL High 70-99 [facility] Comment on above: Result Comment: Fast ing GLUCOSE reference range has been updated per (ADA) [place] Diabetes [employer]'s recommendation. 07/18/2018 Performed By: #### L 500.04089, L500.59760 #### Test performed at: [address] [address] OSM 289 mosm/kg Normal 270-300 [facility] Comment on above: Performed By: #### L 500.82149, L500.33194 #### Test performed at: [address] [address] Potassium [Moles/Vol] 4.5 mmol/L Normal 3.5-5.1 [facility] Comment on above: Performed By: #### L 500.99416, L500.33436 #### Test performed at: [address] [address] Sodium [Moles/Vol] 134 mmol/L Low 136-145 [facility] Comment on above: Performed By: #### L 500.83383, L500.20491 #### Test performed at: [address] [address] Urea nitrogen [Mass/Vol] 17 mg/dL Normal 7-18 [facility] Comment on above: Performed By: #### L 500.60383, L500.13425 #### Test performed at: [address] [address] GFR ESTIMATEon 09-05-2020 IF AMER > 60 Normal > 60 [facility] Comment on above: Result Comment: eGFR (Estimated GFR) Units of measure:mL/min/1.73 meters sq. *CALCULATION REVISED 02/11/2015;IDMS-traceable MDRD equation eGFR is derived from the reexpressed MDRD Study equation using the following parameters: serum creatinine, age, gender and race. An eGFR<60 mL/min/1.73m2 for >3 months is consistent with chronic kidney disease. Refer to KDOQI guidelines for clinical interpretation. Performed By: #### L 500.34107, L500.97750 #### Test performed at: [address] [address] IF non-AFR AMER 55 Low > 60 [facility] Comment on above: Performed By: #### L 500.31345, L500.72361 #### Test performed at: [address] [address] GLUCOSE METERon 09-05-2020 Glucose [Mass/Vol] 177 mg/dL High 70-99 [facility] Comment on above: Order Comment: CONSE RVATION Result Comment: Fast ing GLUCOSE reference range has been updated per (ADA) [place] Diabetes [employer]'s recommendation. 07/18/2018 Performed By: #### L 500.94156 #### Test performed at: [address] [address] Glucose [Mass/Vol] 310 mg/dL High 70-99 [facility] Comment on above: Result Comment: Fast ing GLUCOSE reference range has been updated per (ADA) [place] Diabetes [employer]'s recommendation. 07/18/2018 Insulin per sl scale Performed By: #### L 500.58765 ####Test performed at: [address] [address] Glucose [Mass/Vol] 281 mg/dL High 70-99 [facility] Comment on above: Result Comment: Fast ing GLUCOSE reference range has been updated per (ADA) [place] Diabetes [employer]'s recommendation. 07/18/2018 Insulin per sl scale Performed By: #### L 500.58492 #### Test performed at: [address] [address] Glucose [Mass/Vol] 105 mg/dL High 70-99 [facility] Comment on above: Result Comment: Fast ing GLUCOSE reference range has been updated per (ADA) [place] Diabetes [employer]'s recommendation. 07/18/2018 Performed By: #### L 500.78729 #### Test performed at: [place] [address] HGB AND HCTon 09-05-2020 Hematocrit (Bld) [Volume fraction] 37.5 % Normal 36.0-48.0 [facility] Comment on above: Performed By: #### L 200.05781 #### Test performed at: [place] [address] Hemoglobin (Bld) [Mass/Vol] 12.5 g/dL Normal 12.0-15.0 [facility] Comment on above: Performed By: #### L 200.20220 #### Test performed at: [place] [address] Internal Med Progress Noteon 09-05-2020 Internal Med Progress Note [facility] Patient: CARROLL HARDEN [address] [place] [address] MR#: [id number] PROGRESS NOTE - Internal Medicine : 58 [...] 09/05 0635 O2 Delivery ROOM AIR 09/05 06 Temp 36.0 09/05 0635 Resp 18 09/05 [...] input. Disc (more content not included)... Normal [facility] OT Therapy Recommendationson 09-05-2020 OT Therapy Recommendations [facility] Patient: CARROLL HARDEN [address] [address] MR#: [id number] OT THERAPY RECOMMENDATIONS : 58 Service Date: 09/05/20 151 Therapy Recommendations Therapy Recommendations Recommendations OT evaluation completed. OT recommends HOME with FAmily assist. No further acute OT needs are indicated at this time. Electronically Signed eSign Date and Time Trupti Rojas OT 09/05/20 1512 Normal [facility] Orthopedic Progress Noteon 0 09-05-2020 Orthopedic Progress Note [facility] Patient: CARROLL HARDEN [address] [address] MR#: [id number] PROGRESS NOTE - Orthopedic : 58 Service [...] ss Electronically Signed eSign Date and Time PESICKA,RUBEN 09/05/20 1429 Tera Hernandez MD Normal [facility] PT Therapy Recommendationson 09-05-2020 PT Therapy Recommendations [facility] Patient: CARROLL HARDEN [address] [place] [id number] MR#: [id number] PT THERAPY RECOMMENDATIONS : 58 Service Date: 09/05/20 0914 Therapy Recommendations Therapy Recommendations Recommendations PT eval complete. No further acute PT needs. Recommend d/c home /c family assist. Electronically Signed eSign Date and Time Tiffanie Bashir PT 09/05/20 0914 Normal [facility] z OT Inpatient Discharge Not juan 09-05-2020 z OT Inpatient Discharge Note [facility] Patient: CARROLL HARDEN [address] [id number] MR#: [id number] OT INPATIENT DISCHARGE NOTE : 58 Service [...] Time Trupti Rojas OT 09/05/20 1534 Normal [facility] z OT Inpatient Evaluationon 09-05-2020 z OT Inpatient Evaluation [facility] Patient: CARROLL HARDEN [address] [id number] MR#: [id number] OT INPATIENT EVALUATION : 58 Inpatient OT HPI Date of Service 09/05/20 Time In: 1401 Time Out: 1412 Total Treatment Time (Mins) 11 Visit Reason LATERAL RECESS STENOSIS W/ RADICULOPATHY Surgery Type/Date s/p L L4-5 LAmi, foraminotomy, decompression on 09.04.20/ Lumbar spine precautions Referral Date 09/04/20 Tx Diagnosis: LOW BACK PAIN Insurance Name [employer]IR[employer] O POS [facility] Hospital Course Pt is a left hand [...] 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 Objective Precautions Lumbar [...] Excellent Nader (more content not included)... Normal [facility] z PT Inpatient Discharge Not juan 09-05-2020 z PT Inpatient Discharge Note [facility] Patient: CARROLL HARDEN [address] [place] [address] MR#: [id number] PT INPATIENT DISCHARGE NOTE : 58 Service [...] Time Tiffanie Bashir PT 09/05/20 1139 Normal [facility] z PT Inpatient Evaluationon 09-05-2020 z PT Inpatient Evaluation [facility] Patient: CARROLL HARDEN [address] [place] [address] MR#: [id number] PT INPATIENT EVALUATION : 58 Service Date: 09/05/20 0928 Inpatient PT HPI Date of Service 09/05/20 Time In: 0845 Time Out: 0907 Total Treatment Time (Mins) 22 Room Number 624 Visit Reason LATERAL RECESS STENOSIS W/ RADICULOPATHY Surgery Type: L L4-5 lami, foraminotomy, decompression Surgery Date: 09/04/20 Referral Date 09/04/20 Tx Diagnosis: LOW BACK PAIN Insurance Name [employer] [facility] POS [facility] Hospital Course 60 y.o female at [facility] for above sx d/t lateral recess stenosis [...] posture. Improved stability noted /c single UE support/MEDICAL TECHNOLOGIST CHEMISTRY. Pt agreeable to use of her cane [...] Time Tiffanie Bashir PT 09/05/20 1502 Normal [facility] GLUCOSE METERon 09-04-2020 Glucose [Mass/Vol] 94 mg/dL Normal 70-99 [facility] Comment on above: Result Comment: Fast ing GLUCOSE reference range has been updated per (ADA) [place] Diabetes [employer]'s recommendation. 07/18/2018 Performed By: #### L 500.03077 ####Test performed at: [place] [address] Internal Medicine Consultati onon 09-04-2020 Internal Medicine Consultation [facility] Patient: CARROLL HARDEN [address] [place] [address] MR#: [id number] CONSULTATION - Internal Medicine : 58 Service Date: 09/04/20 1541 History of Present Illness Referring Physician Tera [...] on 09/04/20 105 Last Action: Reviewed on 09/04/201054 by LUZ [...] Reported by JORDON MATHUR on 12/11/1816 Last Action: Reviewed on 09/04/201054 by LUZ [...] Entered as Reported by JORDON MATHUR on 12/11/1815 Last Action: Reviewed on 09/04/20 105 by LUZ CABELLO Discontinued Medications oxyCODONE HCl 5mg AND Acetaminophen 325mg * (Percocet 5mg/325mg Tablet *) 1 EACH TABLET 1 EACH PO Q4-6H PRN PRN post op pain 7 Days #40 TABLET, Ref 0 Discontinued reason: DC'ed by Physician Last Action: Discontinued on 09/04/20 104 by LUZ CABELLO Review of Systems (more content not included)... Normal [facility] OPERATIVE REPORTon OPERATIVE REPORT NAME: CARROLL HARDEN MR#: [id number] SURGEON: Tera Hernandez MD DATE OF SURGERY: [...] there were no complications. TERA HERNANDEZ MD [facility] PT NAME: CARROLL HARDEN MR#: [id number] [address] [place], [place] [address] ACCT: [id number] : 58 OPERATIVE REPORT JFS/[id number] E/S: Tera Hernandez MD 09/18/20 1207 Electronically Signed [facility] PT NAME: CARROLL HARDEN MR#: [id number] [address] [place] [address] ACCT: [id number] : 58 OPERATIVE REPORT Normal [facility] Primary Residenton 1 Primary Resident [facility] Pt Name: CARROLL HARDEN MR#: [id number] [address] [place] [address] ACCT: [id number] [place] [id number] : 58 Service Date: 09/04/20 1603 Primary Resident/Call Primary Resident: [id number] [address] After Hours Call: [phone] Red Team Electronically Signed eSign Date and Time Ana Flanagan RES 09/16/20 1521 Normal [facility] LUMBAR SPINE 2 OR 3 VIEWSon 09-03-2020 LUMBAR SPINE 2 OR 3 VIEWS STUDY: LUMBAR SPINE 2 OR 3 VIEWS; 09/04/2020 2:57 pm INDICATION: LEFT L4-L5 LAMINECTOMY,FORAMINOT JOSE ANGEL,DECOMPRESSION. COMPARISON: None. ACCESSION NUMBER(S): [id number] ORDERING CLINICIAN: Tera Hernandez FINDINGS: Intraoperative fluoroscopy of the lumbar spine demonstrates surgical instruments posterior to L5. IMPRESSION: As above Normal [facility] CHEST PA/AP & LATERALon CHEST PA/AP & LATERAL STUDY: CHEST PA/AP LATERAL; 08/25/2020 11:00 am INDICATION: SOB/PAT. COMPARISON: None. ACCESSION NUMBER(S): [id number] ORDERING CLINICIAN: Madelyn Leslie FINDINGS: The lungs are clear without pleural effusion. Normal heart size, mediastinum, elzbieta, and pulmonary vasculature. IMPRESSION: No active disease in the chest. Normal [facility] CONSULTATION REPORTon 2020 CONSULTATION REPORT NAME: CARROLL HARDEN MR#: [id number] YACHT BUILDER: Madelyn Leslie MD DATE OF CONSULTATION: 08/25/2020 [...] pulse ox is 98% on room air. [facility] PT NAME: CARROLL HARDEN MR#: [id number] [address] [place] [address] ACCT: [id number] : 58 CONSULTATION HEENT: Atraumatic head. Pupils [...] we are getting the results from her bridal stylist sales consultant in [place]. IMPRESSION: 1. Preop clearance for L4-L5 disk [...] courtesy of this consultation. MADELYN LESLIE MD MS/MODL/[id number] E/S: Madelyn Leslie MD 08/26/20 0440 Electronically Signed [facility] PT NAME: CARROLL HARDEN MR#: [id number] [address] [place] [address] ACCT: [id number] : 58 CONSULTATION Normal [facility] LUMB SP COMP W FLEX/EXT 6 VW S>on 08-08-2020 LUMB SP COMP W FLEX/EXT 6 VWS> STUDY: LUMB SP COMP W FLEX/EXT 6 VWS>; 08/08/2020 9:43 am INDICATION: BACK PAIN. COMPARISON: No available comparisons. ACCESSION NUMBER(S): [id number] ORDERING CLINICIAN: Tera Hernandez TECHNIQUE: 6 views [...] L5-S1 level. No evidence of instability.. Normal [facility] XR SHLDR >/=3V AP/RUSH AP/OTH [...] Jul 03 2018 10:17AM EST [id number] N [facility] ANES Holly 06-20-2018 ANES POST HNO ID: [id number] Author: Rohit Velarde Service: Anesthesiology Author Type: [...] 20, 2018 TIME: 2:38 PM PAGER/CONTACT #: [facility] ANES PREOPon 06-20-2018 ANES PREOP HNO ID: [id number] Author: Rohit Velarde Service: Anesthesiology Author Type: Anesthesiologist Type: Anesthesia PreOp Filed: 06/20/2018 9:41 AM Note Text: ANESTHESIOLOGY DAY OF SURGERY NOTE SERVICE DATE: 06/20/2018 SERVICE TIME: 9:40 AM : 1960 Procedure(s) (LRB): ARTHROPLASTY TOTAL SHOULDER; W/ GLENOID AND PROXIMAL HUMERAL REPLACEMENT (Right) Surgeon(s): Jenna Lnetz Estimated body mass index is 33.29 kg/m? [...] 0.1-0.2 mL INTRADERMAL PRN Isreal Mccabe (Santos) Trent lactated ringers infusion 5-30 mL/hr [...] June 20, 2018 TIME: 9:35 AM CSN: [id number] [facility] BRIEF OP NOTon 06-20-2018 BRIEF OP NOT HNO ID: [id number] Author: Kusum Francisco Service: Orthopaedic Surgery Author Type: Resident Type: Brief Op Note Filed: 06/20/2018 5:49 PM Note Text: BRIEF OP NOTE LOG ID: [id number] Surgery/Procedure Date: 06/20/2018 Incision/Procedure Start Time: 11:18 AM Incision Close/Procedure End Time: 1:17 PM Surgeon(s)/Procedural ist(s) and Director Of Blood(s): Surgeon(s) and Role: * Jenna Lentz - [...] 20, 2018 TIME: 5:49 PM PAGER/CONTACT #: [facility] CASE MANAGEMon 06-20-2018 CASE MANAGEM HNO ID: [id number] Author: May Herrera (Sw) Service: Care Management Author Type: Auto Body Repair Teacher Type: Care Mgt Progress Note Filed: 06/20/2018 [...] is pcp summary of care sent via [facility] [facility] () Nurse to provide discharge instructions. TRANSPORTATION ARRANGEMENTS: Car Spouse ADDITIONAL CONTACT RESOURCES: Needs Prior to Discharge: Ready for Discharge Appointments for Next 45 Days Date Time Provider Location Dept Phone 07/03/2018 10:00 AM CAROLA BAPTISTE AT [phone] 07/03/2018 10:30 AM GABRIEL CANTU) [facility] AT [phone] 07/31/2018 2:15 PM JENNA LENTZ AT [phone] Pt to be discharged home to follow up as above. SIGNATURE: DARIO Saini PATIENT NAME: Carroll Harden DATE: June 20, 2018 TIME: 5:31 PM PAGER/CONTACT #: [phone] [facility] CASE MGT INIT ASSESon 2018 CASE MGT INIT ASSES HNO ID: [id number] Author: May Herrera (Sw) Service: Care Management Author Type: Auto Body Repair Teacher Type: Care Mgt Initial Assessment Filed: 06/20/2018 [...] None Has the Patient Been in a Nursing Home Facility in the Past 30 days? 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 O.Therapy recommend home. Spouse visiting at bedside and will transport pt home later today.Further discharge needs not anticipated.SW/TCC to follow to assist with plans for discharge. SIGNATURE: DARIO Saini PATIENT NAME: Carroll Harden DATE: June 20, 2018 TIME: 5:27 PM PAGER/CONTACT #: [id number] [facility] CONSULTon 06-20-2018 CONSULT HNO ID: [id number] Author: Dulce Green Service: General Internal Medicine [...] Disp: Rfl: 06/19/2018 at 0630 rizatriptan (MAXALT TEAM GUIDE) 10 mg disintegrating tablet DISSOLVE 1 TABLET [...] the care of your patient. Dulce Green APRN.INSULATION BOARD BACK TENDER June 20, 2018 4:34 PM Normal [facility] NURSING PROGon 06-20-2018 Protein mass conc HNO ID: [id number] Author: Fela (Rn) FLETCHER Phillips Service: (none) Author Type: Registered Nurse Type: Nursing Progress Note Filed: 06/20/2018 7:39 PM Note Text: Nursing Progress Note Patient Name: Carroll Harden Patient Location: [address] Daily Note: 1545. Care assumed. Pt [...] at bedside. 1720. Dr. Blake and Dulce SUMMONS SERVER at bedside, plan is to stay for [...] note was completed by: Fela Phillips RN [facility] Protein mass conc HNO ID: [id number] Author: Wendy (Rn) FLETCHER Underwood Service: Nursing Author Type: Registered Nurse Type: Nursing Progress Note Filed: 06/20/2018 10:20 AM Note Text: Nursing Progress Note Patient Name: Carroll Harden Patient Location: SURGERY [facility]* Daily Note:Right interscalene nerve block with ultrasound guidance with Dr. Velarde and Dr. Marlow at bedside. Patient tolerated procedure well, VSS, will continue to monitor as we wait for OR team. Resting comfortably with no complaints of pain at this time. This note was completed by: Wendy Underwood RN [facility] OPERATIVE NOon 06-20-2018 OPERATIVE NO HNO ID: [id number] Author: Jenna Lentz Service: Orthopaedic Surgery Author Type: Physician Type: Operative Report Filed: 06/20/2018 1:25 PM Note Text: [place] [id number] [place] OPERATIVE REPORT NAME: Carroll Harden [facility] #: [id number] DATE: 06/20/2018 (11:18am-1:17pm) AGE: 58 SURGEON 1: Jenna Lentz M.D. HOG RAISER: 1. Augie Coates M.D. 2. Kusum Prasad M.D. 3. Mundo Pablo OPERATION: Right total shoulder arthroplasty, biceps tenodesis. ANESTHESIA: General anesthesia with regional interscalene nerve block for postoperative pain control. PREOPERATIVE DIAGNOSIS: Right shoulder primary glenohumeral osteoarthritis. POSTOPERATIVE DIAGNOSIS: Right shoulder primary glenohumeral osteoarthritis, biceps tendinopathy. OPERATIVE INDICATIONS: The patient is a 58 year oldevp-eder-zpq right-hand dominant white female who has a [...] rotator interval stitch was then passed in rojegi-oa-raqzp fashion with a #2 Ticron suture and tied down to close the lateral rotator interval and set the osteotomy superiorly. The two #2 Fiberwire sutures coming out of the bicipital groove were then sequentially passed in a eaarev-py-fzaam fashion medial to the horizontal mattress and [...] none COMPLICATIONS: none apparent Jenna Lentz M.D. [facility] PT EDon 06-20-2018 PT ED HNO ID: [id number] Author: Cindy ValenciaRnTyesha Griffin RN Service: (none) Author Type: Registered Nurse Type: [...] Signed By: Cindy Griffin RN In Department: [facility] SURGICAL SERVICES [facility] THERAPY NTon 06-20-2018 THERAPY NT HNO ID: [id number] Author: Abi ValenciaOtTyesha Phillips Service: Occupational Therapy Author Type: Occupational Therapist Type: Therapy (PT/OT/Speech/Resp) Filed: 06/20/2018 4:59 PM Note Text: Occupational Therapy Evaluation SERVICE DATE: 06/20/2018 SERVICE TIME: 1550 to 1640 ROOM: [address] Recommended Discharge Disposition: Home Anticipated Discharge [...] living (ADL) Interventions Provided: Evaluation;Therapeuti c Exercise (45039);Self Custodial Management (78379) $ Evaluation-Low (11607) Billed Units: 1 unit Therapeutic Exercise (96148) Treatment Minutes: 10 1 unit Skilled Intervention(s): Education in Self Custodial Management (92372) Treatment Minutes: 28 2 units Skilled Intervention(s): [...] Patient Lives With: Spouse Assistance Available: time study analyst Number Of Stairs To Bed/Bath: 0 Equipment [...] DATE: June 20, 2018 TIME: 4:54 PM Normal [facility] XR SHOULDER 2V AP/TRUE AP [...] 20 2018 2:04PM EST [id number] Normal [facility] NURSING PROGon 06-09-2018 Protein mass conc HNO ID: [id number] Author: Ivana (Rn) FLETCHER Heller Service: Nursing [...] 2018 11:10 AM Addendum 06/15/18 EKG IN [facility] FINAL Ivana Heller RN June 15, 2018 4:39 PM Normal [facility] Type and SCR (30D)on 019 ABO/RH(D) Positive Normal [facility] HOSPon 04-28-2018 HOSP Patient:Adalberto Harden MRN: Height:5' 2 (1.575 m) Weight:186 lb (84.369 kg) Outpatient Medications as of 06/20/18: calcium phosphate dibas/vit D3 (VITAMIN D, WITH CALCIUM, ORAL) docusate sodium (COLACE) 100 mg capsule aspirin, enteric coated (ECOTRIN LOW STRENGTH) 81 mg EC tablet oxyCODONE-acetaminoph en (PERCOCET) 5-325 mg tablet rizatriptan (MAXALT TEAM GUIDE) 10 mg disintegrating tablet mupirocin (BACTROBAN) 2 [...] (Pf)] Imitrex [Sumatriptan Succinate] Influenza Vaccine Tri-Sp - Latex Betadine [Povidone-Iodine] Dhe Dilaudid [Hydromorphone (Bulk)] Date Verified: 06/20/18 Lab Values Lab Value Units Date High Low POTA* 5.1 mmol/L 06/07/2018 5.1 3.7 NATY* 40.7 % 06/07/2018 46.0 36.0 Progress Notes (RADIO CT SCAN [facility]): RT Lillian, Tech 06/07/2018 10:04 AM [...] RT Lillian June 07, 2018 9:54 AM [facility] Vital Signs Date Time Vital Sign Value Performing Clinician Facility 02-24-2024 14:13040 Body height 154.94 cm [facility] 02-24-2024 14:130400 Body mass index (BMI) [Ratio] 33.1 kg/m2 [facility] 02-24-2024 14:13040 Body temperature 96 [degF] [facility] 02-24-2024 14:13040 Body weight 79.6 kg [facility] 02-24-2024 14:130400 Diastolic blood pressure 84 mm[Hg] [facility] 02-24-2024 14:130400 Heart rate 66 /min [facility] 02-24-2024 14:130400 Systolic blood pressure 159 mm[Hg] [facility] 12-20-2023 15:35-0400 Body height 154.94 cm [facility] 12-20-2023 15:35-0400 Body mass index (BMI) [Ratio] 33.8 kg/m2 [facility] 12-20-2023 15:35-0400 Body weight 81.19 kg [facility] 12-20-2023 15:35-0400 Diastolic blood pressure 80 mm[Hg] [facility] 12-20-2023 15:35-0400 Heart rate 78 /min [facility] 12-20-2023 15:35-0400 Respiratory rate 12 /min [facility] 12-20-2023 15:35-0400 Systolic blood pressure 134 mm[Hg] [facility] 04-29-2023 09:00-0500 Body height 154.94 cm Robert Ball Other [facility] Other 04-29-2023 09:00-0500 Body mass index (BMI) [Ratio] 33.14 kg/m2 Robert Ball Other [facility] Other 04-29-2023 09:00-0500 Body weight 79.56 kg Robert Ball Other [facility] Other 04-29-2023 09:00-0500 Diastolic blood pressure 89 mm[Hg] Robert Ball Other [facility] Other 04-29-2023 09:00-0500 Respiratory rate 12 /min Robert Ball Other [facility] Other 04-29-2023 09:00-0500 Systolic blood pressure 155 mm[Hg] Robert Ball Other [facility] Other 12-20-2022 13:45-0400 Body height 154.94 cm Robert Ball Other [facility] Other 12-20-2022 13:45-0400 Body mass index (BMI) [Ratio] 34.12 kg/m2 Robert Ball Other [facility] Other 12-20-2022 13:45-0400 Body weight 81.92 kg Robert Ball Other [facility] Other 12-20-2022 13:45-0400 Diastolic blood pressure 96 mm[Hg] Robert Ball Other [facility] Other 12-20-2022 13:45-0400 Respiratory rate 12 /min Robert Ball Other [facility] Other 12-20-2022 13:45-0400 Systolic blood pressure 179 mm[Hg] Robert Ball Other [facility] Other 08-04-2022 09:45-0400 Body height 154.94 cm Robert Ball Other [facility] Other 08-04-2022 09:45-0400 Body mass index (BMI) [Ratio] 33.33 kg/m2 Robert Ball Other [facility] Other 08-04-2022 09:45-0400 Body weight 80.02 kg Robert Ball Other [facility] Other 08-04-2022 09:45-0400 Diastolic blood pressure 77 mm[Hg] Robert Ball Other [facility] Other 08-04-2022 09:45-0400 Respiratory rate 12 /min Robert Ball Other [facility] Other 08-04-2022 09:45-0400 Systolic blood pressure 128 mm[Hg] Robert Ball Other [facility] Other Encounters Encounter Date Encounter Type Care Provider Facility Start: 04-09-2024 End: 04-09-2024 ambulatory Miriam Barron MD Facility: [facility] Start: 02-24-2024 End: 02-24-2024 ambulatory [facility] Work Phone: Start: 02-24-2024 End: 02-24-2024 Patient encounter procedure [facility] Physician [facility] Work Phone: Start: 02-22-2024 Non-patient / Non-visit [facility] Physician [facility] Work Phone: Start: 12-27-2023 Non-patient / Non-visit [facility] Physician [facility] Work Phone: Start: 12-20-2023 Patient encounter status [facility] Start: 12-20-2023 End: 12-20-2023 ambulatory [facility] Work Phone: Start: 12-20-2023 End: 12-20-2023 Patient encounter procedure [facility] Physician [facility] Work Phone: Start: 09-26-2023 End: 09-26-2023 ambulatory Miriam Barron MD Facility: [facility] Start: 08-15-2023 End: 08-15-2023 ambulatory Miriam Barron MD [facility]: [facility] Start: 08-08-2023 End: 08-08-2023 ambulatory Miriam Barron MD Facility:[facility] Start: 06-27-2023 End: 06-27-2023 ambulatory Miriam Barron MD Facility:[facility] Start: 06-06-2023 End: 06-06-2023 ambulatory Miriam Barron MD Facility:[facility] Start: 06-01-2023 End: 06-01-2023 ambulatory Robert Cruz Other [facility] Other Start: 06-01-2023 Telephone encounter Robert Ball [facility] Start: 05-23-2023 End: 05-23-2023 ambulatory Miriam Barron MD Facility: [facility] Start: 05-13-2023 End: 05-13-2023 ambulatory Robert Ball Other [facility] Other Start: 05-13-2023 Telephone encounter Robert Ball [facility] Start: 05-09-2023 End: 05-09-2023 ambulatory Robert Ball Other [facility] Other Start: 05-09-2023 Telephone encounter Robert Ball [facility] Start: 05-04-2023 End: 05-04-2023 ambulatory Robert Ball Other [facility] Other Start: 05-04-2023 Telephone encounter Robert Ball [facility] Start: 05-02-2023 End: 05-02-2023 ambulatory Robert Ball Other [facility] Other Start: 05-02-2023 Telephone encounter Robert Ball [facility] Start: 04-29-2023 End: 04-29-2023 ambulatory Robert Ball Other [facility] Other Start: 04-29-2023 Office outpatient vi sit 15 minutes Robert Ball [facility] Start: 04-04-2023 End: 04-04-2023 ambulatory Robert Ball Other [facility] Other Start: 04-04-2023 Telephone encounter Robert Ball [facility] Start: 01-24-2023 End: 01-24-2023 ambulatory Robert Ball Other [facility] Other Start: 01-24-2023 Telephone encounter Robert Ball [facility] Start: 12-23-2022 End: 12-23-2022 ambulatory Robert Ball Other [facility] Other Start: 12-23-2022 Telephone encounter Robert Ball [facility] Start: 12-20-2022 End: 12-20-2022 ambulatory Robert Ball Other [facility] Other Start: 12-20-2022 Office outpatient vi sit 15 minutes Robert Ball [facility] Start: 12-17-2022 End: 12-17-2022 ambulatory Robert Ball Other [facility] Other Start: 12-17-2022 Telephone encounter Robert Ball [facility] Start: 11-08-2022 End: 11-08-2022 ambulatory Robert Cruz Other [facility] Other Start: 11-08-2022 Telephone encounter Robert Ball [facility] Start: 10-22-2022 End: 10-22-2022 ambulatory Robert Cruz Other [facility] Other Start: 10-22-2022 Telephone encounter Robert Ball [facility] Start: 10-13-2022 End: 10-13-2022 ambulatory Robert Cruz Other [facility] Other Start: 10-13-2022 Telephone encounter Robert Ball [facility] Start: 09-27-2022 End: 09-27-2022 ambulatory Robert Ball Other [facility] Other Start: 09-27-2022 Telephone encounter Robert Ball [facility] Start: 08-23-2022 End: 08-24-[address] RISHI PARKER Facility: Start: 08-04-2022 End: 08-04-2022 ambulatory Robert Cruz Other [facility] Other Start: 08-04-2022 Office outpatient vi sit 25 minutes Robert Ball [facility] Start: 04-03-2022 Encounter for genera l adult medical examination without abnormal findings DR ROBERT CRUZ [facility] Start: 03-30-2022 End: 03-31-[address] ROBERT [...] Start: 07-03-2018 End: 07-03-2018 Patient encounter procedure [facility] Start: 06-20-2018 End: 06-20-2018 Evaluation and management of inpatient Count includes the [facility] Procedures Date Procedure Procedure Detail Performing Clinician Start: 06-07-2018 Antibody screen JENNA RI CCHETTI Plan of Treatment Date Care Activity Detail Author Comprehensive metabo lic 2000 panel - Serum or Plasma [facility] enter MG Breast - bilateral Diagnostic [facility] Payers Date Payer Category Payer Unknown 2022 [facility] [id number] 2019 Unknown [id number] 1960 Self-pay [id number] 1960 Unknown [id number] .16.84 [id number] 1959 Unknown [id number] .16.84 0.1.784739.3.579.2.593 1959 Unknown [id number] .16.84 0.1.167202.3.579.2.593 1959 Unknown [id number] .16.84 0.1.203043.3.579.2.593 1959 Unknown [id number] 2.16.84 0.1.057983.3.579.2.593 1959 Unknown [id number] 2.16.84 0.1.782844.3.579.2.593 1959 Unknown [id number] 2.16. 840.1.307577.3.579.2.196 1959 Unknown [id number] 2.16. 840.1.541837.3.579.2.196 1959 Unknown [id number] 2.16. 840.1.300594.3.579.2.196 1959 Unknown [id number] 2.16. 840.1.515997.3.579.2.196 1959 Unknown [id number] 2.16. 840.1.369184.3.579.2.196 1959 Unknown [id number] 2.16. 840.1.925665.3.579.2.196 1960 Unknown [id number] 2.16. 840.1.890704.3.579.2.196 Unknown [id number] 2.16.[address] [facility] [id number] Social History Date Type Detail Facility Sex Assigned At [facility] Other Start: 1960 Sex Assigned At Female [facility] Clinical Notes 08-04-2022 to 06-01-2023 Note Date [...] and without status migrainosus (ICD-10 - G43.719) [facility] Other 01-15-2024 Evaluation note* Encounter Date Diagnosis Assessment Notes Treatment Notes Treatment Clinical Notes Apr, Intractable chronic migraine without aura and without status migrainosus (ICD-10 - G43.719) [facility] Other 01-08-2024 Evaluation note* Encounter Date Diagnosis Assessment Notes Treatment Notes Treatment Clinical Notes Apr, Intractable chronic migraine without aura and without status migrainosus (ICD-10 - G43.719) [facility] Other 01-05-2024 Evaluation note* Encounter Date Diagnosis [...] Begin Amitriptyline Stop Tizanidine. MRI cervical spine [facility] Other 08-31-2023 Evaluation note* Encounter Date Diagnosis Assessment Notes Treatment Notes Treatment Clinical Notes Nov, Primary hypertension (ICD-10 - I10) [facility] Other 08-28-2023 Evaluation note* Encounter Date Diagnosis Assessment Notes Treatment Notes Treatment Clinical Notes Nov, Adverse effect of smooth muscle relaxant, subsequent encounter (ICD-10 - T44.3X5D) Avoid combination of Klonopin and Zanaflex when scheduled management professionals. May want to cut back on Zanaflex. [...] Pain in left shoulder (ICD-10 - M25.512) [facility] Other 06-30-2023 Evaluation note* Encounter Date Diagnosis Assessment Notes Treatment Notes Treatment Clinical Notes Sep, Type 2 diabetes mellitus with hyperglycemia, without long-term current use of insulin (ICD-10 - E11.65) [facility] Other 06-05-2023 Evaluation note* Encounter Date Diagnosis Assessment Notes Treatment Notes Treatment Clinical Notes Sep, Candidiasis, intertriginous (ICD-10 - B37.2) [facility] Other 04-12-2023 Evaluation note* Encounter Date Diagnosis [...] use, the patient reduces the risk for MD, CVA, HTN, cardiac dysrhythmias and sudden cardiac [...] Jul, Other specified hypothyroidism (ICD-10 - E03.8) [facility] Evaluation noteNo assessment information available [facility] Work Phone: Evaluation note* Diagnosis Onset Date Resolution Status Cervical pain acute Cervical spondylosis acute Cervical pain acute Cervical spondylosis acute Painful lumpy right breast a cute [facility] Work Phone: History general Narrative - [...] 10/1990 Surgical History LEFT HEART CATHETERIZATION 2015 Hospitalization History SEE [facility] [employer] Other History general Narrative - Reported* Type [...] CERVICAL DISCECTOMY AN D FUSION Surgical History EGT/BSO Surgical History THYROIDECTOMY 10/1990 Surgical History LEFT HEART CATHETERIZATION 2015 Surgical History Right knee arthroscopy 10/2022 Hospitalization History SEE [facility] Other Reason for referral (narrative)* Reason Evaluation of right knee pain Diagnosis 1 Strain of right knee , subsequent encounter (E71.267E) Referral Organization [facility] [place] Referring Provider First Name Robert Referring Provider Last Name [place] Referring Provider Specialty Internal Me dicine Referred Provider Rishi Parker Jr Referred Provider Specialty Orthopedic S urgery Referral Priority Routine [facility] Other Reason for referral (narrative)* Reason Referral for neck pa in Diagnosis 1 Cervicalgia (M54.2) Diagnosis 2 Cervical spondylosis (M47.812) Referral Organization [facility] [place] Referring Provider First Name Robert Referring Provider Last Name [place] Referring Provider Specialty Internal Me dicine Referred Organization [facility] Referred Address [address] [place], [place],[address] Referred Provider Specialty Pain Medicin e Referral Priority Routine General Notes Patient has hx of ce rvical discectomy and fusion and presented w/ persistent neck pain, which radiated upwards causing a headache. She is being referred for treatment with the pain clinic. Clinical Notes Include MRI [facility] Other Summary Purpose Family History No Family History Records Found Relationship Condition Age at Onset Recorded Date/T babar father Heart disease Unknown Diabetes mellitus Unknown sister Asthma Unknown Advance Directives No Advanced Directives Records Found Advance Directive Response Recorded Date/ Time Advance [...] section and content) DATE CREATED AUTHOR 06/20/2018 [facility] DATE CREATED AUTHOR AUTHOR'S ORGANIZ ATION 07/04/2018 [facility] DATE CREATED AUTHOR AUTHOR'S ORGANIZ ATION 09/18/2020 [facility] DATE CREATED AUTHOR AUTHOR'S ORGANIZ ATION 08/27/2022 [facility] DATE CREATED AUTHOR AUTHOR'S ORGANIZ ATION 04/18/2024 [facility] REASON FOR VISIT (unrecogniz ed section [...] 2023 Team Status: Active Member Role Status Dates Nikki Stanton MD Primary Care Provider Active S tart: December 27, 2023 Robert Cruz DO Attending Provider Active Sta rt: December 27, 2023 Team Status: Active Member Role Status Dates Nikki Stanton MD Primary Care Provide r, Attending Provider Active Start: February 22, 2024 Team Status: Inactive Member Role Status Dates [...] BE BASED ON THE PRIMARY CLINICAL RECORDS. [facility] [employer] [facility] provides no warranty or guarantee of the accuracy or completeness of information in this document.
--- NOTE | 2024-05-10 12:47 | CT_ITS ---
[address] [address] Patient Name: CARROLL HARDEN MRN: [id number] date: 1960 Sex: F Assigned Patient Location: [place] Current Patient Location: [place] Accession/Order Number: [id number] Exam Date: 05/10/2024 14:00 Report Date: 05/11/2024 08:34 At the request of: BERNY RIVERA Procedure: CT Shoulder RT w contrast EXAMINATION: CT Shoulder RT w contrast HISTORY: right shoulder pain ; anterior shoulder pain in region of scar since shoulder replacement 5 years ago COMPARISON: MR shoulder right 04/04/2024, XR shoulder right 04/02/2024 TECHNIQUE: Multi-planar CT images were created without and/or with IV contrast according to examination type. Dose reduction techniques were achieved by using automated exposure control and/or adjustment of mA and/or kV according to patient size and/or use of iterative reconstruction technique. FINDINGS: BONES: Right shoulder replacements with prosthetic humeral head and [place]omb[place] shosh[place] acetabulum. Moderate degenerative changes of the acromioclavicular joint. SOFT TISSUES: Radiopaque contrast from arthrogram within the joint capsule and intermixed within the fibers of the supraspinatus tendon, and trace amount within the subdeltoid bursa. EFFUSION: None visible. OTHER: Degenerative disc disease of the cervical spine and intervertebral disc spacers at C5-6. CT/CT Shoulder RT w contrast IMPRESSION: 1. Partial tear of the supraspinatus tendon. 2. Right shoulder replacement without appreciable hardware failure. 3. Moderate degenerative changes of the acromioclavicular joint. 4. No appreciable abnormality of the anterior soft tissues to account for patient's symptoms. Evaluation is limited by metallic streak artifact. Electronically authenticated by: BERNY QUISPE Date: 05/11/2024 08:34
--- NOTE | 2024-05-10 12:55 | FL_ITS ---
[address] [address] Patient Name: CARROLL HARDEN MRN: [id number] date: 1960 Sex: F Assigned Patient Location: [place] Current Patient Location: Accession/Order Number: [id number] Exam Date: 05/10/2024 13:02 Report Date: 05/10/2024 14:57 At the request of: BERNY RIVERA Procedure: FL arthrogram shoulder EXAMINATION: FL arthrogram shoulder, FL guided needle placement HISTORY: Right Shoulder Pain COMPARISON: No relevant comparison available. TECHNIQUE: An arthrogram was performed under fluoroscopic guidance using non-ionic contrast material in the usual sterile manner after obtaining informed consent. Standard level fluoroscopic mode of operation utilized. 35.1 seconds of fluoroscopy. 1.22 mg. 2 images FINDINGS: JOINT: Right shoulder NEEDLE: 25 gauge, 3.5 spinal needle. MEDICATION: 6cc buffered 1% lidocaine for subcutaneous anesthesia 5 mL Omnipaque 300. 5 mL 1% lidocaine. TECHNIQUE: Anterior approach. A single stick was successful in gaining access to the joint space. CLINICAL: 2 out of 10 pain before the procedure. 2 out of 10 pain following the procedure COMPLICATIONS: None. BONES: Moderate acromioclavicular joint osteoarthritis. Moderate to severe degenerative changes of the glenoid. Right humeral head arthroplasty OTHER: Negative. PLEASE ALSO SEE THE SEPARATE CT SHOULDER REPORT. FL/FL arthrogram shoulder IMPRESSION: Technically successful right shoulder diagnostic arthrogram Electronically authenticated by: WARREN FAYE Date: 05/10/2024 14:57
--- NOTE | 2024-05-10 12:55 | FL_ITS ---
The [address] [address] Patient Name: CARROLL HARDEN MRN: [id number] date: 1960 Sex: F Assigned Patient Location: [place] Current Patient Location: Accession/Order Number: [id number] Exam Date: 05/10/2024 13:02 Report Date: 05/10/2024 14:57 At the request of: BERNY RIVERA Procedure: FL guided needle placement EXAMINATION: FL arthrogram shoulder, FL guided needle placement HISTORY: Right Shoulder Pain COMPARISON: No relevant comparison available. TECHNIQUE: An arthrogram was performed under fluoroscopic guidance using non-ionic contrast material in the usual sterile manner after obtaining informed consent. Standard level fluoroscopic mode of operation utilized. 35.1 seconds of fluoroscopy. 1.22 mg. 2 images FINDINGS: JOINT: Right shoulder NEEDLE: 25 gauge, 3.5 spinal needle. MEDICATION: 6cc buffered 1% lidocaine for subcutaneous anesthesia 5 mL Omnipaque 300. 5 mL 1% lidocaine. TECHNIQUE: Anterior approach. A single stick was successful in gaining access to the joint space. CLINICAL: 2 out of 10 pain before the procedure. 2 out of 10 pain following the procedure COMPLICATIONS: None. BONES: Moderate acromioclavicular joint osteoarthritis. Moderate to severe degenerative changes of the glenoid. Right humeral head arthroplasty OTHER: Negative. PLEASE ALSO SEE THE SEPARATE CT SHOULDER REPORT. FL/FL guided needle placement IMPRESSION: Technically successful right shoulder diagnostic arthrogram Electronically authenticated by: WARREN FAYE Date: 05/10/2024 14:57
[2024-05-10] MEDS: LIDOCAINE HCL 15 ML, SODIUM BICARBONATE 2 MEQ INJ (13:45)
--- NOTE | 2024-05-10 14:20 | SUR.PREOP ---
05/09/23 Pt instructed on procedure, date, time,and prep.
== END 2024-05-10 14:00 | disposition home or self-care (01) ==
LOC: FL 12:23
PROVIDERS: Radiology Diagnostic Radiology; PCP Internal Medicine; Visit Provider Orthopaedic Surgery
DX: M25.511 Pain in right shoulder (principal); Z96.611 Presence of right artificial shoulder joint; S46.811A Strain of other muscles, fascia and tendons at shoulder and upper arm level, right arm, initial encounter
CPT/HCPCS: 23350; 73201; 77002; Q9967

== ENCOUNTER 2024-05-31 11:48 | Outpatient (OUT) | payer OTHER, SELFPAY ==
--- OUTSIDE RECORDS SUMMARY | 2024-05-31 11:55 | XMS_ITS | CCD ---
Author Organization [facility] Care Team Providers Care [employer] Manager Name Role Phone JENNA LENTZ Admitting [...] Andrius Sachin Attending Unavailable Anderson HENLEY, Andrius Stephenson Attending Unavailable Gibreezy HENLEY, Miriam Stephenson Attending Unavailable Anderson HENLEY, Miriam Stephenson Attending Unavailable Allergies Allergy Classification Reported Allergen(s) Allergy Type Date of Onset Reaction(s) Facility (2 sources) Contrast media; Translations: [CONTRAST DYE] Propensity to adverse reactions to drug (disorder) 09-30-19 11 [facility] Repository (2 sources) HYDROmorphone; Translations: [HYDROMORPHONE (BULK)] Drug Allergy 08-17-19 17 [facility] Repository (20 sources) Latex; Translations: [LATEX] Propensity to adverse reactions to drug (disorder) 09-30-19 11 Unknown, Unknown Reaction [facility] Repository (2 sources) Meperidine; Translations: [MEPERIDINE (PF)] Drug Allergy 09-30-19 11 [facility] Repository (2 sources) Povidone-Iodine; Translations: [POVIDONE-IODINE] Drug Allergy 10-21-19 17 [facility] Repository (2 sources) SUMAtriptan; Translations: [SUMATRIPTAN SUCCINATE] Drug Allergy 09-30-19 11 [facility] Repository (2 sources) INFLUENZA VACCINE TRI-SP 09-10; Translations: [INFLUENZA VACCINE TRI-SP 09-10] Propensity to adverse reactions to drug (disorder) 09-30-19 11 [facility] Repository (3 sources) DHE; Translations: [DHE] Propensity to adverse reactions to drug (disorder) 10-24-19 13 [facility] Repository (19 sources) HYDROmorphone Drug Allergy 12-20-19 24 Unknown, Unknown Reaction [facility] (20 sources) Iodine; Translations: [iodine] Drug Allergy 10-24-19 13 Unknown, Unknown Reaction [facility] Repository (19 sources) Meperidine Drug Allergy 12-20-19 24 Unknown, Unknown Reaction [facility] (19 sources) SUMAtriptan Drug Allergy 12-20-19 24 Unknown, Unknown Reaction [facility] (19 sources) Fluad Drug allergy 12-20-19 24 Unknown, Unknown Reaction [facility] (17 sources) DHEA Drug allergy Unknown [facility] Other (1 source) HYDROmorphone Drug Allergy 10-24-19 13 [facility] Repository (1 source) Meperidine Drug Allergy 10-24-19 13 [facility] Repository (1 source) Plasmin Drug Allergy 10-24-19 13 [facility] Repository (12 sources) influenza A virus (H1N1) antigen / influenza A virus (H3N2) antigen / influenza B virus antigen Drug Allergy 11-21-19 14 Comment:FLU VACCINE [facility] Other (12 sources) Contraindication to Flu Injection Propensity to adverse reactions 03-07-20 14 Comment:advers e rxn/side effects [facility] Other (3 sources) patient allergy list reviewed by nurse or physicia Propensity to adverse reactions 12-22-19 14 Comment:Done [facility] Other (2 sources) Calcium Drug Allergy 12-20-19 24 Unknown Reaction [facility] (2 sources) Calcium Carbonate Drug Allergy 12-20-19 Unknown Reaction [facility] (2 sources) prasterone (DHEA) Allergy to substance 12-20-19 Unknown Reaction [facility] (2 sources) Fluad Quadrivalent Allergy to substance 04-29-19 Comment:FLU VACCINE [facility] Medications Current Medications Medication Drug Class(es) Dates [...] every two hours as needed for headache 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 1 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 Orally PRN headache, [...] Basophils (Bld) [#/Vol] 0.1 10 3/uL 0.0-0.1 [facility] Basophils/100 WBC Auto (Bld) on 12-27-2023 Basophils/100 WBC (Bld) 1.0 % 0.2-2.0 [facility] Cholesterol in LDL Calc [Mas s/Vol]on 12-27-2023 Cholesterol in LDL [Mass/Vol] 63.0 mg/dL [facility] Comment on above: <100 mg/dl [id number] 0-129 mg/dl NEAR OR ABOVE [id number] mg/dl BORDERLINE [id number] mg/dl HIGH>190 mg/dl VERY HIGH Cholesterol in VLDL Calc [Ma ss/Vol]on 12-27-2023 Cholesterol in VLDL [Mass/Vol] 45.8 mg/dL [facility] Eosinophils/100 WBC Auto (Bl d)on 12-27-2023 Eosinophils/100 WBC (Bld) 8.3 % High 0.9-7.0 [facility] Erythrocyte distribution wid th Auto (RBC) [Ratio]on 12-27-2023 Erythrocyte distribution width (RBC) [Ratio] 11.9 % 11.0-15.0 [facility] Estimated glomerular filtrat ion rate (GFR) non- Americanon 12-27-2023 GFR/1.73 sq M.predicted among non-blacks MDRD (S/P/Bld) [Vol rate/Area] 47 mL/min/{1.73_m2} Low >=60 [facility] Globulin Calc (S) [Mass/Vol] on 12-27-2023 Globulin (S) [Mass/Vol] 3.2 g/dL [facility] Glucose mean value [Mass/vol ume] in Blood Estimated from glycated hemoglobinon 12-27-2023 Average glucose Estimated from glycated hemoglobin (Bld) [Mass/Vol] 143 mg/dL [facility] Hematocrit Auto (Bld) [Volum e fraction]on 12-27-2023 Hematocrit (Bld) [Volume fraction] 39.7 % 36.0-48.0 [facility] Hemoglobin [Mass/volume] in Bloodon 12-27-2023 Hemoglobin (Bld) [Mass/Vol] 12.9 g/dL 12.0-16.0 [facility] Laboratory - Chemistry and C hemistry - challengeon 12-27-2023 Albumin [Mass/Vol] 3.7 g/dL 3.4-5.0 [facility] ALP [Catalytic activity/Vol] 61 U/L 46-116 [facility] ALT [Catalytic activity/Vol] 36 U/L 14-59 [facility] AST [Catalytic activity/Vol] 24 U/L 15-37 [facility] Bilirubin [Mass/Vol] 0.6 mg/dL 0.2-1.0 [facility] Calcium [Mass/Vol] 9.2 mg/dL 8.5-10.1 [facility] Chloride [Moles/Vol] 101 mmol/L 98-107 [facility] Cholesterol [Mass/Vol] 146 mg/dL <=200 [facility] Cholesterol in HDL [Mass/Vol] 38 mg/dL Low 40-60 [facility] Comment on above: > or =60 mg/dl - LOW CARDIOVASCULAR RISK<40 mg/dl - HIGH CARDIOVASCULAR RISK CO2 [Moles/Vol] 26.8 mmol/L 21.0-32.0 [facility] Creatinine [Mass/Vol] 1.17 mg/dL High 0.55-1.02 [facility] GFR/1.73 sq M.predicted MDRD (S/P/Bld) [Vol rate/Area] 56 mL/min/{1.73_m2} Low >=60 [facility] Glucose [Mass/Vol] 138 mg/dL High 74-106 [facility] Potassium [Moles/Vol] 4.5 mmol/L 3.5-5.1 [facility] Protein [Mass/Vol] 6.9 g/dL 6.4-8.2 [facility] Sodium [Moles/Vol] 138 mmol/L 136-145 [facility] Triglyceride [Mass/Vol] 229 mg/dL High <=150 [facility] TSH Qn 0.834 m[IU]/L 0.358-3.740 [facility] Urea nitrogen [Mass/Vol] 23.0 mg/dL High 7.0-18.0 [facility] Urea nitrogen/Creatinine [Mass ratio] 19.7 mg/mg [facility] Laboratory - Hematology and Cell countson 12-27-2023 HbA1c (Bld) [Mass fraction] 6.6 % High 4.5-6.2 [facility] Comment on above: ADA RECOMMENDED LIMI T 4.0 - 6.0ADA THERAPEUTIC TARGET < 7.0ACTION SUGGESTED> 7.0 Immature granulocytes/100 WBC (Bld) 0.4 % 0.0-0.5 [facility] Leukocytes [#/volume] correc chip for nucleated erythrocytes in Blood by Automated counon 12-27-2023 WBC corrected for nucl RBC Auto (Bld) [#/Vol] 5.2 10 3/uL 4.0-11.0 [facility] Lymphocytes Auto (Bld) [#/Vo l]on 12-27-2023 Lymphocytes (Bld) [#/Vol] 2.2 10 3/uL 1.2-3.8 [facility] Lymphocytes/100 WBC Auto (Bl d)on 12-27-2023 Lymphocytes/100 WBC (Bld) 42.1 % 20.5-60.0 [facility] MCH Auto (RBC) [Entitic mass ]on 12-27-2023 MCH (RBC) [Entitic mass] 28.5 pg 26.7-34.0 [facility] MCHC Auto (RBC) [Mass/Vol]on 12-27-2023 MCHC (RBC) [Mass/Vol] 32.5 g/dL 29.9-35.2 [facility] MCV Auto (RBC) [Entitic vol] on 12-27-2023 MCV (RBC) [Entitic vol] 87.8 fL 81.0-99.0 [facility] Monocytes Auto (Bld) [#/Vol] on 12-27-2023 Monocytes (Bld) [#/Vol] 0.3 10 3/uL 0.3-0.8 [facility] Monocytes/100 WBC Auto (Bld) on 12-27-2023 Monocytes/100 WBC (Bld) 6.4 % 1.7-12.0 [facility] Neutrophils Auto (Bld) [#/Vo l]on 12-27-2023 Neutrophils (Bld) [#/Vol] 2.2 10 3/uL 1.4-6.5 [facility] Neutrophils/100 WBC Auto (Bl d)on 12-27-2023 Neutrophils/100 WBC (Bld) 41.8 % Low 43.0-75.0 [facility] No Panel Informationon 12-26 Eosinophils # (Auto) 0.4 10 3/uL 0.0-0.7 [facility] Immature Granulocyte # (Auto) 0.02 10 3/uL 0.00-0.03 [facility] Platelet mean volume Auto (B ld) [Entitic vol]on 12-27-2023 Platelet mean volume (Bld) [Entitic vol] 9.6 fL 9.5-13.5 [facility] Platelets Auto (Bld) [#/Vol] on 12-27-2023 Platelets (Bld) [#/Vol] 190 10 3/uL 150-450 [facility] RBC Auto (Bld) [#/Vol]on RBC (Bld) [#/Vol] 4.52 10 6/uL 4.20-5.40 [facility] Serum or plasma albumin/glob ulin mass ratioon 12-27-2023 Albumin/Globulin [Mass ratio] 1.2 {ratio} [facility] Serum or plasma anion gap de terminationon 12-27-2023 Anion gap [Moles/Vol] 14.7 mmol/L [facility] Serum or plasma total choles terol/high density lipoprotein (HDL) cholesterol mass desiree 12-27-2023 Cholesterol.total/Chol esterol in HDL [Mass ratio] 3.8 {ratio} [facility] Comment on above: 3.3 - 4.4 LOW [...] BERNY CANO Date: 2022-08-24 07:19 Normal [facility] CBC AUTO DIFFon 03-30-2022 BASO # 0.0 103/ul Normal 0.0-0.1 [facility] Comment on above: Performed By: #### C BC #### [facility] [address] [address] [address] Rc Foster Basophils/100 WBC (Bld) 0.4 % Normal 0.2-2.0 [facility] Comment on above: Performed By: #### C BC #### [facility] [address] [address] [address] Rc Foster EO # 0.3 103/ul Normal 0.0-0.7 [facility] Comment on above: Performed By: #### C BC #### [facility] [address] [address] [address] Rc Foster Eosinophils/100 WBC (Bld) 4.9 % Normal 0.9-7.0 [facility] Comment on above: Performed By: #### C BC #### [facility] [address] [address] [address] Rc Foster Erythrocyte distribution width (RBC) [Ratio] 12.2 % Normal 11.0-15.0 [facility] Comment on above: Performed By: #### C BC #### [facility] [address] [address] [address] Rc Foster Hematocrit (Bld) [Volume fraction] 39.8 % Normal 36.0-48.0 [facility] Comment on above: Performed By: #### C BC #### [facility] [address] [address] [address] Rc Foster Hemoglobin (Bld) [Mass/Vol] 13.1 g/dL Normal 12.0-16.0 [facility] Comment on above: Performed By: #### C BC #### [facility] [address] [place] [address] Dr. Rc Foster IG # 0.02 10e3/ul Normal 0.00-0.03 [facility] Comment on above: Performed By: #### C BC #### [facility] [address] [place] [address] Dr. Rc Foster IG % 0.4 % Normal 0.0-0.5 [facility] Comment on above: Performed By: #### C BC #### [facility] [address] [place] [address] Dr. Rc Foster LYMPH # 2.1 103/ul Normal 1.2-3.8 [facility] Comment on above: Performed By: #### C BC #### [facility] [address] [place] [address] Dr. Rc Foster Lymphocytes/100 WBC (Bld) 37.1 % Normal 20.5-60.0 [facility] Comment on above: Performed By: #### C BC #### [facility] [address] [place] [address] Dr. Rc Foster MANUAL DIFF REQ NO Normal [facility] Comment on above: Performed By: #### C BC #### [facility] [address] [place] [address] Dr. Rc Foster MCH (RBC) [Entitic mass] 28.7 pg Normal 26.7-34.0 [facility] Comment on above: Performed By: #### C BC #### [facility] [address] [place] [address] Dr. Rc Foster MCHC (RBC) [Mass/Vol] 32.9 g/dL Normal 29.9-35.2 [facility] Comment on above: Performed By: #### C BC #### [facility] [address] [place] [address] Dr. Rc Foster MCV (RBC) [Entitic vol] 87.1 fL Normal 81.0-99.0 [facility] Comment on above: Performed By: #### C BC #### [facility] [address] [place] [address] Dr. Rc Foster MONO # 0.4 103/ul Normal 0.3-0.8 [facility] Comment on above: Performed By: #### C BC #### [facility] [address] [place] [address] Dr. Rc Foster Monocytes/100 WBC (Bld) 6.7 % Normal 1.7-12.0 [facility] Comment on above: Performed By: #### C BC #### [facility] [address] [place] [address] Dr. Rc Foster NEUT # 2.9 103/ul Normal 1.4-6.5 [facility] Comment on above: Performed By: #### C BC #### [facility] [address] [place] [address] Dr. Rc Foster Neutrophils/100 WBC (Bld) 50.5 % Normal 43.0-75.0 [facility] Comment on above: Performed By: #### C BC #### [facility] [address] [place] [address] Dr. Rc Foster Platelet mean volume (Bld) [Entitic vol] 9.7 fL Normal 9.5-13.5 [facility] Comment on above: Performed By: #### C BC #### [facility] [address] [place] [address] Dr. Rc Foster PLT 189 103/ul Normal 150-450 [facility] Comment on above: Performed By: #### C BC #### [facility] [address] [place] [address] Dr. Rc Foster RBC 4.57 106/ul Normal 4.20-5.40 [facility] Comment on above: Performed By: #### C BC #### [facility] [address] [place] [address] Dr. Rc Foster WBC 5.7 103/ul Normal 4.0-11.0 [facility] Comment on above: Performed By: #### C BC #### [facility] [address] [place] [address] Dr. Rc Foster GLYCOHEMOGLOBIN A1Con 2021 ADA RECOMMENDATION SEE BELOW Normal [facility] Comment on above: Result Comment: ADA RECOMMENDED LIMIT 4.0 - 6.0 ADA THERAPEUTIC TARGET < 7.0 ACTION SUGGESTED > 7.0 Performed By: #### A 1C #### [facility] [address] [address] [address] Rc Foster Glucose [Mass/Vol] 143 mg/dL Normal [facility] Comment on above: Performed By: #### A 1C #### [facility] [address] [address] [address] Rc Foster HbA1c (Bld) [Mass fraction] 6.6 % Critically high 4.5-6.2 [facility] Comment on above: Performed By: #### A 1C #### [facility] [address] [address] [address] Rc Foster LIPID PROFILEon 03-30-2022 CHOL-HDL RATIO NORM SEE BELOW Normal [facility] Comment on above: Result Comment: 3.3 - 4.4 LOW RISK 4.4 - 7.1 AVERAGE RISK 7.1 - 11.0 MODERATE RISK >11.0 HIGH RISK Performed By: #### T SH, CMP, LIPID ####[facility] [address] [address]DrRodger Foster Cholesterol [Mass/Vol] 184 mg/dL Normal <=200 [facility] Comment on above: Performed By: #### T SH, CMP, LIPID ####[facility] [address] [id number] Foster Cholesterol in HDL [Mass/Vol] 42 mg/dL Normal 40-60 [facility] Comment on above: Performed By: #### T SH, CMP, LIPID ####[facility] [address] [id number] Foster Cholesterol in LDL [Mass/Vol] 87.0 mg/dL Normal [facility] Comment on above: Performed By: #### T SH, CMP, LIPID ####[facility] [address] [phone] Foster Cholesterol.total/Chol esterol in HDL [Mass ratio] 4.4 {ratio} Normal [facility] Comment on above: Performed By: #### T SH, CMP, LIPID ####[facility] [address] [id number]. Rc Foster HDL NORMAL > or = 60 mg/dl - LO W CARDIOVASCULAR RISK <40 mg/dl - HIGH CARDIOVASCULAR RISK Normal [facility] Comment on above: Performed By: #### T SH, CMP, LIPID ####[facility] [address] [address]Dr. Rc Foster LDL CALC NORMAL SEE BELOW Normal [facility] Comment on above: Result Comment: <100 mg/dl OPTIMAL 100 - 129 mg/dl NEAR OR ABOVE OPTIMAL 130 - 159 mg/dl BORDERLINE HIGH 160 - 189 mg/dl HIGH >190 mg/dl VERY HIGH Performed By: #### T MARY JANE, CMP, LIPID ####[facility] [address] [address]Dr. Rc Foster Triglyceride [Mass/Vol] 275 mg/dL Critically high <=150 [facility] Comment on above: Performed By: #### T MARY JANE CMP, LIPID ####[facility] [address] [address]Dr. Rc Foster VLDL CALC 55.0 mg/dL Normal [facility] Comment on above: Performed By: #### T SH, CMP, LIPID ####[facility] [address] [address]Dr. Rc oFster PROF 14(COMP METB)on 022 Albumin [Mass/Vol] 4.0 g/dL Normal 3.4-5.0 [facility] Comment on above: Performed By: #### T SH, CMP, LIPID ####[facility] [address] [address]Dr. Rc Foster Albumin/Globulin [Mass ratio] 1.1 {ratio} Normal [facility] Comment on above: Performed By: #### T SH, CMP, LIPID ####[facility] [address] [phone]. Rc Foster ALP [Catalytic activity/Vol] 71 U/L Normal 46-116 [facility] Comment on above: Performed By: #### T SH, CMP, LIPID ####[facility] [address] [address]Dr. Rc Foster ALT [Catalytic activity/Vol] 29 U/L Normal 14-59 [facility] Comment on above: Performed By: #### T SH, CMP, LIPID ####[facility] [address] [address]Dr. Rc Foster Anion gap [Moles/Vol] 13.2 mmol/L Normal [facility] Comment on above: Performed By: #### T MARY JANE, CMP, LIPID ####[facility] [address] [place], [place] [address]Dr. Rc Foster AST [Catalytic activity/Vol] 17 U/L Normal 15-37 [facility] Comment on above: Performed By: #### T MARY JANE, CMP, LIPID ####[facility] [address] [place], [place] [address]Dr. Rc Foster Bilirubin [Mass/Vol] 0.6 mg/dL Normal 0.2-1.0 [facility] Comment on above: Performed By: #### T SH, CMP, LIPID ####[facility] [address] [address]Dr. Rc Foster Calcium [Mass/Vol] 9.0 mg/dL Normal 8.5-10.1 [facility] Comment on above: Performed By: #### T SH, CMP, LIPID ####[facility] [address] [address]Dr. Rc Foster Chloride [Moles/Vol] 102 mmol/L Normal 98-107 [facility] Comment on above: Performed By: #### T SH, CMP, LIPID ####[facility] [address] [address]Dr. Rc Foster CO2 [Moles/Vol] 27.3 mmol/L Normal 21.0-32.0 [facility] Comment on above: Performed By: #### T SH, CMP, LIPID ####[facility] [address] [phone]. Rc Foster Creatinine [Mass/Vol] 1.00 mg/dL Normal 0.55-1.02 [facility] Comment on above: Performed By: #### T SH, CMP, LIPID ####[facility] [address] [phone]. Rc Foster EGFR-AF SCOTTISH >60 Normal >=60 [facility] Comment on above: Performed By: #### T SH, CMP, LIPID ####[facility] [address] [phone]. Rc Foster EGFR-NON AF SCOTTISH 56 mL/min/1.73m2 Critically low >=60 [facility] Comment on above: Performed By: #### T SH, CMP, LIPID ####[facility] [address] [address]Dr. Rc Foster Globulin (S) [Mass/Vol] 3.5 g/dL Normal [facility] Comment on above: Performed By: #### T SH, CMP, LIPID ####[facility] [address] [phone]. Rc Foster Glucose [Mass/Vol] 159 mg/dL Critically high 74-106 [facility] Comment on above: Performed By: #### T SH, CMP, LIPID ####[facility] [address] [phone]. Rc Foster Potassium [Moles/Vol] 4.5 mmol/L Normal 3.5-5.1 [facility] Comment on above: Performed By: #### T SH, CMP, LIPID ####[facility] [address] [phone]. Rc Foster Protein [Mass/Vol] 7.5 g/dL Normal 6.4-8.[address] [facility] Comment on above: Performed By: #### T SH, CMP, LIPID ####[facility] [address] [phone]. Rc Foster Sodium [Moles/Vol] 138 mmol/L Normal 136-145 [facility] Comment on above: Performed By: #### T SH, CMP, LIPID ####[facility] [address] [place], [place] [address]Ex. Rc Foster Urea nitrogen [Mass/Vol] 23.0 mg/dL Critically high 7.0-18.0 [facility] Comment on above: Performed By: #### T SH, CMP, LIPID ####[facility] [address] [place], [place] [address]Lc. Rc Foster Urea nitrogen/Creatinine [Mass ratio] 23.0 mg/mg Normal [facility] Comment on above: Performed By: #### T SH, CMP, LIPID ####[facility] [address] [place], [place] [address]Tb. Rc Foster TSHon 03-30-2022 TSH 2.807 uIU/mL Normal 0.358-3.740 [facility] Comment on above: Performed By: #### T SH, CMP, LIPID ####[facility] [address] [place], [place] [address]Rn. Rc Foster US THYROIDon 03-30-2022 US THYROID [...] Date: 2022-03-30 11:03 Normal [facility] MAMM SCREEN 3D LEX CADon 03-19-2022 MG MAMM SCREEN 3D LEX CAD Patient: CARROLL HARDEN Exam Date: 03/19/2022 : 1960 Gender:F Ordering : DR ROBERT CRUZ D.O. Admission #: [id number] Family : Order #: [id number] CLICK HERE TO VIEW EXAM RADIOLOGY REPORT [...] Treatments None Family Cancers None LOCATION: [facility] BREAST COMPOSITION: Scattered areas fibroglandular density. [...] Cano M.D. on 03/23/2022 at 11:59 Normal [facility] CBC AUTO DIFFon 11-27-2021 BASO # 0.0 103/ul Normal 0.0-0.1 [facility] Comment on above: Performed By: #### C BC #### [facility] [address] [address] [address] Rc Foster Basophils/100 WBC (Bld) 0.7 % Normal 0.2-2.0 [facility] Comment on above: Performed By: #### C BC #### [facility] [address] [place] [address] Dr. Rc Foster EO # 0.6 103/ul Normal 0.0-0.7 [facility] Comment on above: Performed By: #### C BC #### [facility] [address] [place] [address] Dr. Rc Foster Eosinophils/100 WBC (Bld) 10.3 % Critically high 0.9-7.0 [facility] Comment on above: Performed By: #### C BC #### [facility] [address] [place] [address] Dr. Rc Foster Erythrocyte distribution width (RBC) [Ratio] 12.4 % Normal 11.0-15.0 [facility] Comment on above: Performed By: #### C BC #### [facility] [address] [place] [address] Dr. Rc Foster Hematocrit (Bld) [Volume fraction] 41.2 % Normal 36.0-48.0 [facility] Comment on above: Performed By: #### C BC #### [facility] [address] [place] [address] Dr. Rc Foster Hemoglobin (Bld) [Mass/Vol] 13.4 g/dL Normal 12.0-16.0 [facility] Comment on above: Performed By: #### C BC #### [facility] [address] [place] [address] Dr. Rc Foster IG # 0.01 10e3/ul Normal 0.00-0.03 [facility] [facility] Comment on above: Performed By: #### C BC #### [facility] [address] [place] [address] Dr. Rc Foster IG % 0.2 % Normal 0.0-0.5 [facility] Comment on above: Performed By: #### C BC #### [facility] [address] [place] [address] Dr. Rc Foster LYMPH # 2.3 103/ul Normal 1.2-3.8 [facility] Comment on above: Performed By: #### C BC #### [facility] [address] [place] [address] Dr. Rc Foster Lymphocytes/100 WBC (Bld) 40.6 % Normal 20.5-60.0 [facility] Comment on above: Performed By: #### C BC #### [facility] [address] [place] [address] Dr. Rc Foster MANUAL DIFF REQ NO Normal The [facility] Comment on above: Performed By: #### C BC #### [facility] [address] [place] [address] Dr. Rc Foster MCH (RBC) [Entitic mass] 28.8 pg Normal 26.7-34.0 [facility] Comment on above: Performed By: #### C BC #### [facility] [address] [place] [address] Dr. Rc Foster MCHC (RBC) [Mass/Vol] 32.5 g/dL Normal 29.9-35.2 [facility] Comment on above: Performed By: #### C BC #### [facility] [address] [place] [address] Dr. Rc Foster MCV (RBC) [Entitic vol] 88.6 fL Normal 81.0-99.0 [facility] Comment on above: Performed By: #### C BC #### [facility] [address] [place] [address] Dr. Rc Foster MONO # 0.4 103/ul Normal 0.3-0.8 [facility] Comment on above: Performed By: #### C BC #### [facility] [address] [place] [address] Dr. Rc Foster Monocytes/100 WBC (Bld) 7.6 % Normal 1.7-12.0 [facility] Comment on above: Performed By: #### C BC #### [facility] [address] [place] [address] Dr. Rc Foster NEUT # 2.3 103/ul Normal 1.4-6.5 [facility] Comment on above: Performed By: #### C BC #### [facility] [address] [place] [address] Dr. cR Foster Neutrophils/100 WBC (Bld) 40.6 % Critically low 43.0-75.0 [facility] Comment on above: Performed By: #### C BC #### [facility] [address] [place] [address] Dr. Rc Foster Platelet mean volume (Bld) [Entitic vol] 9.6 fL Normal 9.5-13.5 [facility] Comment on above: Performed By: #### C BC #### [facility] [address] [place] [address] Dr. Rc Foster PLT 194 103/ul Normal 150-450 [facility] Comment on above: Performed By: #### C BC #### [facility] [address] [place] [address] Dr. Rc Foster RBC 4.65 106/ul Normal 4.20-5.40 [facility] Comment on above: Performed By: #### C BC #### [facility] [address] [place] [address] Dr. Rc Foster WBC 5.5 103/ul Normal 4.0-11.0 [facility] Comment on above: Performed By: #### C BC #### [facility] [address] [place] [address] Dr. Rc Foster GLYCOHEMOGLOBIN A1Con 2021 ADA RECOMMENDATION SEE BELOW Normal The [facility] Comment on above: Result Comment: ADA RECOMMENDED LIMIT 4.0 - 6.0 ADA THERAPEUTIC TARGET < 7.0 ACTION SUGGESTED > 7.0 Performed By: #### A 1C #### [facility] [address] [place] [address] Dr. Rc Foster Glucose [Mass/Vol] 131 mg/dL Normal [facility] Comment on above: Performed By: #### A 1C #### [facility] [address] [place] [address] Dr. Rc Foster HbA1c (Bld) [Mass fraction] 6.2 % Normal 4.5-6.2 [facility] Comment on above: Performed By: #### A 1C #### [facility] [address] [place] [address] Dr. Rc Foster PROF CHEM 8 (BAS METB)on Anion gap [Moles/Vol] 15.2 mmol/L Normal [facility] Comment on above: Performed By: #### T SH, BMP #### [facility] [address] [place] [address] Dr. Rc Foster Calcium [Mass/Vol] 8.5 mg/dL Normal 8.5-10.1 [facility] Comment on above: Performed By: #### T SH, BMP #### [facility] [address] [address] [address] Rc Foster Chloride [Moles/Vol] 100 mmol/L Normal 98-107 [facility] Comment on above: Performed By: #### T SH, BMP #### [facility] [address] [place] [address] Dr. Rc Foster CO2 [Moles/Vol] 26.6 mmol/L Normal 21.0-32.0 [facility] Comment on above: Performed By: #### T SH, BMP #### [facility] [address] [address] [address] Rc Foster Creatinine [Mass/Vol] 1.15 mg/dL Critically high 0.55-1.02 [facility] Comment on above: Performed By: #### T SH, BMP #### [facility] [address] [place] [address] Dr. Rc Foster EGFR-AF SCOTTISH 58 mL/min/1.73m2 Critically low >=60 [facility] Comment on above: Performed By: #### T SH, BMP #### [facility] [address] [place] [address] Dr. Rc Foster EGFR-NON AF SCOTTISH 48 mL/min/1.73m2 Critically low >=60 [facility] Comment on above: Performed By: #### T SH, BMP #### [facility] [address] [place] [address] Dr. Rc Foster Glucose [Mass/Vol] 211 mg/dL Critically high 74-106 [facility] Comment on above: Performed By: #### T SH, BMP #### [facility] [address] [place] [address] Dr. Rc Foster Potassium [Moles/Vol] 4.8 mmol/L Normal 3.5-5.1 [facility] Comment on above: Performed By: #### T SH, BMP #### [facility] [address] [place] [address] Dr. Rc Foster Sodium [Moles/Vol] 137 mmol/L Normal 136-[address] [facility] Comment on above: Performed By: #### T SH, BMP #### [facility] [address] [place] [address] Dr. Rc Foster Urea nitrogen [Mass/Vol] 33.0 mg/dL Critically high 7.0-18.0 [facility] Comment on above: Performed By: #### T SH, BMP #### [facility] [address] [place] [address] Dr. Rc Foster Urea nitrogen/Creatinine [Mass ratio] 28.7 mg/mg Normal [facility] Comment on above: Performed By: #### T SH, BMP #### [facility] [address] [place] [address] Dr. Rc Foster TSHon 11-27-2021 TSH 0.744 uIU/mL Normal 0.358-3.740 [facility] Comment on above: Performed By: #### T SH, BMP #### [facility] [address] [place] [address] Dr. Rc Foster SYMPTOMATIC COVID-19 ANTIGEN on 10-28-2021 EUA Statement SEE BELOW Normal [facility] Comment on above: Result Comment: This [...] revoked sooner. Performed By: #### C VDAGS ####[facility] [address] [place], [place] [address]FtRodger Foster SARS-CoV-2 (COVID-19) RNA YARED+probe Ql (Unsp spec) Negative Normal NEGATIVE [facility] Comment on above: Performed By: #### C VDAGS ####[facility] [address] [place], [place] [address]ArRodger Foster GLYCOHEMOGLOBIN A1Con 2021 ADA RECOMMENDATION SEE BELOW Normal [facility] Comment on above: Result Comment: ADA RECOMMENDED LIMIT 4.0 - 6.0 ADA THERAPEUTIC TARGET < 7.0 ACTION SUGGESTED > 7.0 Performed By: #### A 1C #### [facility] [address] [address] [address] Rc Foster Glucose [Mass/Vol] 128 mg/dL Normal [facility] Comment on above: Performed By: #### A 1C #### [facility] [address] [address] [address] Rc Foster HbA1c (Bld) [Mass fraction] 6.1 % Normal 4.5-6.2 [facility] Comment on above: Performed By: #### A 1C #### [facility] [address] [address] [address] Rc Foster Discharge CCD Assessmenton 0 09-06-2020 Discharge CCD Assessment [facility] Patient: CARROLL HARDEN [address] [place] [address] MR#: [id number] DISCHARGE CCD ASSESSMENT : 58 Service Date: 09/06/20 1018 Discharge CCD Assessment Assessment Patient discharged home to continue exercises, pain medication, and wound care Electronically Signed eSign Date and Time Melyssa Flores 09/06/20 1019 Tera Hernandez MD Normal [facility] GLUCOSE METERon 09-06-2020 Glucose [Mass/Vol] 126 mg/dL High 70-99 [facility] Comment on above: Order Comment: CONSE RVATION Result Comment: Fast ing GLUCOSE reference range has been updated per (ADA) [place] [employer]'s recommendation. 07/18/2018 Performed By: #### L 500.16279 ####Test performed at: [place] [address] Glucose [Mass/Vol] 205 mg/dL High 70-99 [facility] Comment on above: Order Comment: CONSE RVATION Result Comment: Fast ing GLUCOSE reference range has been updated per (ADA) [place] [employer]'s recommendation. 07/18/2018 Insulin per sl scale Performed By: #### L 500.47122 #### Test performed at: [place] [address] Internal Med Progress Noteon 09-06-2020 Internal Med Progress Note [facility] Patient: CARROLL HARDEN [address] [place] [address] MR#: [id number] PROGRESS NOTE - Internal Medicine : 58 [...] RES, Katarzy na MD 09/06/20 1134 Normal [facility] Orthopedic Progress Noteon 0 09-06-2020 Orthopedic Progress Note [facility] Patient: CARROLL HARDEN [address] [place] [address] MR#: [id number] PROGRESS NOTE - Orthopedic : 58 Service [...] RN 09/06/20 1022 Tera Hernandez MD Normal [facility] Anesthesia Noteon 09-05-2020 Anesthesia Note [facility] Patient: CARROLL HARDEN [address] [place] [address] MR#: [id number] ANESTHESIA NOTE : Service Date: 09/05/20811 Post-anesthesia [...] Signed eSign Date and Time Krystian Akers CHIEF JAILER[employer]SE INSPECTOR AND PATCHER 09/05/20 0813 Chu Glez MD Normal [facility] BASIC MET PANELon 09-05-2020 Anion gap [Moles/Vol] 12 mmol/L Normal 6-18 [facility] Comment on above: Performed By: #### L 500.52659, L500.20236 #### Test performed at: [address] [address] Calcium [Mass/Vol] 8.7 mg/dL Normal 8.5-10.1 [facility] Comment on above: Performed By: #### L 500.01750, L500.18961 #### Test performed at: [address] [address] Chloride [Moles/Vol] 101 mmol/L Normal 98-107 [facility] Comment on above: Performed By: #### L 500.49960, L500.36023 #### Test performed at: [address] [address] CO2 [Moles/Vol] 25 mmol/L Normal 21-32 [facility] Comment on above: Performed By: #### L 500.87440, L500.09540 #### Test performed at: [address] [address] Creatinine [Mass/Vol] 1.020 mg/dL Normal 0.550-1.020 [facility] Comment on above: Performed By: #### L 500.99972, L500.25725 #### Test performed at: [address] [address] Glucose [Mass/Vol] 264 mg/dL High 70-99 [facility] Comment on above: Result Comment: Fast ing GLUCOSE reference range has been updated per (ADA) [place] [employer]'s recommendation. 07/18/2018 Performed By: #### L 500.74485, L500.57079 #### Test performed at: [address] [address] OSM 289 mosm/kg Normal 270-300 [facility] Comment on above: Performed By: #### L 500.26770, L500.37648 #### Test performed at: [address] [address] Potassium [Moles/Vol] 4.5 mmol/L Normal 3.5-5.1 [facility] Comment on above: Performed By: #### L 500.72165, L500.80796 #### Test performed at: [address] [address] Sodium [Moles/Vol] 134 mmol/L Low 136-145 [facility] Comment on above: Performed By: #### L 500.20660, L500.51258 #### Test performed at: [address] [address] Urea nitrogen [Mass/Vol] 17 mg/dL Normal 7-18 [facility] Comment on above: Performed By: #### L 500.24898, L500.86478 #### Test performed at: [address] [address] GFR ESTIMATEon 09-05-2020 IF AMER > 60 Normal > 60 [facility] Comment on above: Result Comment: eGFR (Estimated GFR) Units of measure:mL/min/1.73 meters sq. *CALCULATION REVISED 02/11/2015;IDMS-traceable MDRD equation eGFR is derived from the reexpressed MDRD Study equation using the following parameters: serum creatinine, age, gender and race. An eGFR<60 mL/min/1.73m2 for >3 months is consistent with chronic kidney disease. Refer to KDOQI guidelines for clinical interpretation. Performed By: #### L 500.70884, L500.04943 #### Test performed at: [address] [address] IF non-AFR AMER 55 Low > 60 [facility] Comment on above: Performed By: #### L 500.79846, L500.52146 #### Test performed at: [address] [address] GLUCOSE METERon 09-05-2020 Glucose [Mass/Vol] 177 mg/dL High 70-99 [facility] Comment on above: Order Comment: CONSE RVATION Result Comment: Fast ing GLUCOSE reference range has been updated per (ADA) [place] [employer]'s recommendation. 07/18/2018 Performed By: #### L 500.43789 #### Test performed at: [address] [address] Glucose [Mass/Vol] 310 mg/dL High 70-99 [facility] Comment on above: Result Comment: Fast ing GLUCOSE reference range has been updated per (ADA) [place] [employer]'s recommendation. 07/18/2018 Insulin per sl scale Performed By: #### L 500.98732 ####Test performed at: [address] [address] Glucose [Mass/Vol] 281 mg/dL High 70-99 [facility] Comment on above: Result Comment: Fast ing GLUCOSE reference range has been updated per (ADA) [place] [employer]'s recommendation. 07/18/2018 Insulin per sl scale Performed By: #### L 500.66298 #### Test performed at: [address] [address] Glucose [Mass/Vol] 105 mg/dL High 70-99 [facility] Comment on above: Result Comment: Fast ing GLUCOSE reference range has been updated per (ADA) [place] [employer]'s recommendation. 07/18/2018 Performed By: #### L 500.45121 #### Test performed at: [place] [address] HGB AND HCTon 09-05-2020 Hematocrit (Bld) [Volume fraction] 37.5 % Normal 36.0-48.0 [facility] Comment on above: Performed By: #### L 200.09361 #### Test performed at: [place] [address] Hemoglobin (Bld) [Mass/Vol] 12.5 g/dL Normal 12.0-15.0 [facility] Comment on above: Performed By: #### L 200.45089 #### Test performed at: [place] [address] Internal Med Progress Noteon 09-05-2020 Internal Med Progress Note [facility] Patient: CARROLL HARDEN [address] [place] [address] MR#: [id number] PROGRESS NOTE - Internal Medicine : 58 [...] input. Disc (more content not included)... Normal [facility] OT Therapy Recommendationson 09-05-2020 OT Therapy Recommendations [facility] Patient: CARROLL HARDEN [address] [address] MR#: [id number] OT THERAPY RECOMMENDATIONS : 58 Service Date: 09/05/20 151 Therapy Recommendations Therapy Recommendations Recommendations OT evaluation completed. OT recommends HOME with FAmily assist. No further acute OT needs are indicated at this time. Electronically Signed eSign Date and Time Trupti Rojas OT 09/05/20 1512 Normal [facility] Orthopedic Progress Noteon 0 09-05-2020 Orthopedic Progress Note [facility] Patient: CARROLL HARDEN [address] [address] MR#: [id number] PROGRESS NOTE - Orthopedic : 58 Service [...] PESICKA,RUBEN 09/05/20 1429 Tera Hernandez MD Normal [facility] PT Therapy Recommendationson 09-05-2020 PT Therapy Recommendations [facility] Patient: CARROLL HARDEN [address] [id number] MR#: [id number] PT THERAPY RECOMMENDATIONS : 58 Service Date: 09/05/20 0914 Therapy Recommendations Therapy Recommendations Recommendations PT eval complete. No further acute PT needs. Recommend d/c home /c family assist. Electronically Signed eSign Date and Time Tiffanie Bashir PT 09/05/20 0914 Normal [facility] z OT Inpatient Discharge Not juan 09-05-2020 z OT Inpatient Discharge Note [facility] Patient: CARROLL HARDEN [address] [id number] MR#: [id number] OT INPATIENT DISCHARGE NOTE : 58 Service [...] Time Trupti Rojas OT 09/05/20 1534 Normal [facility] z OT Inpatient Evaluationon 09-05-2020 z OT Inpatient Evaluation [facility] Patient: CARROLL HARDEN [address] [id number] MR#: [id number] OT INPATIENT EVALUATION : 58 Inpatient OT HPI Date of Service 09/05/20 Time In: 1401 Time Out: 1412 Total Treatment Time (Mins) 11 Visit Reason LATERAL RECESS STENOSIS W/ RADICULOPATHY Surgery Type/Date s/p L L4-5 LAmi, foraminotomy, decompression on 09.04.20/ Lumbar spine precautions Referral Date 09/04/20 Tx Diagnosis: LOW BACK PAIN Insurance Name RAMIRO O POS [facility] [...] 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 Objective Precautions Lumbar [...] Excellent Nader (more content not included)... Normal [facility] z PT Inpatient Discharge Not juan 09-05-2020 z PT Inpatient Discharge Note [facility] Patient: CARROLL HARDEN [address] [place] [address] MR#: [id number] PT INPATIENT DISCHARGE NOTE : 58 Service [...] Time Tiffanie Bashir PT 09/05/20 1139 Normal [facility] z PT Inpatient Evaluationon 09-05-2020 z PT Inpatient Evaluation [facility] Patient: CARROLL HARDEN [address] [place] [address] MR#: [id number] PT INPATIENT EVALUATION : 58 Service Date: 09/05/20 0928 Inpatient PT HPI Date of Service 09/05/20 Time In: 0845 Time Out: 0907 Total Treatment Time (Mins) 22 Room Number 624 Visit Reason LATERAL RECESS STENOSIS W/ RADICULOPATHY Surgery Type: L L4-5 lami, foraminotomy, decompression Surgery Date: 09/04/20 Referral Date 09/04/20 Tx Diagnosis: LOW BACK PAIN Insurance Name Total Attorneys [facility] POS [facility] Hospital Course 60 y.o female at [facility] for above sx d/t lateral recess [...] posture. 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 Pt agreeable to use of her cane [...] Time Tiffanie Bashir PT 09/05/20 1502 Normal [facility] GLUCOSE METERon 09-04-2020 Glucose [Mass/Vol] 94 mg/dL Normal 70-99 [facility] Comment on above: Result Comment: Fast ing GLUCOSE reference range has been updated per (ADA) [place] [employer]'s recommendation. 07/18/2018 Performed By: #### L 500.77569 ####Test performed at: [place] [address] Internal Medicine Consultati onon 09-04-2020 Internal Medicine Consultation [facility] Patient: CARROLL HARDEN [address] [place] [address] MR#: [id number] CONSULTATION - Internal Medicine : 58 Service [...] Last Action: Reviewed on 09/04/20 105 by ULZ CABELLO Nabumetone * (Relafen *) 500 MG [...] of Systems (more content not included)... Normal [facility] OPERATIVE REPORTon OPERATIVE REPORT NAME: CARROLL HARDEN MR#: [id number] SURGEON: Tera Hernandez MD DATE OF SURGERY: [...] there were no complications. TERA HERNANDEZ MD [facility] PT NAME: CARROLL HARDEN MR#: [id number] [address] [place], [place] [address] ACCT: [id number] : 58 OPERATIVE REPORT JFS/MODL/[id number] E/S: Tera Hernandez MD 09/18/20 1207 Electronically Signed [facility] PT NAME: CARROLL HARDEN MR#: [id number] [address] [place] [address] ACCT: [id number] : 58 OPERATIVE REPORT Normal [facility] Primary Residenton 1 Primary Resident [facility] Pt Name: CARROLL HARDEN MR#: [id number] [address] [place] [address] ACCT: [id number] [place] [id number] : 58 Service Date: 09/04/20 1603 Primary Resident/Call Primary Resident: [id number] [address] After Hours Call: [phone] Red Team Electronically Signed eSign Date and Time Ana Flanagan RES 09/16/20 1521 Normal [facility] LUMBAR SPINE 2 OR 3 VIEWSon 09-03-2020 LUMBAR SPINE 2 OR 3 VIEWS STUDY: LUMBAR SPINE 2 OR 3 VIEWS; 09/04/2020 2:57 pm INDICATION: LEFT L4-L5 LAMINECTOMY,FORAMINOT JOSE ANGEL,DECOMPRESSION. COMPARISON: None. ACCESSION NUMBER(S): [id number] ORDERING CLINICIAN: Tera Hernandez FINDINGS: Intraoperative fluoroscopy of the lumbar spine demonstrates surgical instruments posterior to L5. IMPRESSION: As above Normal [facility] CHEST PA/AP & LATERALon CHEST PA/AP & LATERAL STUDY: CHEST PA/AP LATERAL; 08/25/2020 11:00 am INDICATION: SOB/PAT. COMPARISON: None. ACCESSION NUMBER(S): [id number] ORDERING CLINICIAN: Madelyn Leslie FINDINGS: The lungs are clear without pleural effusion. Normal heart size, mediastinum, elzbieta, and pulmonary vasculature. IMPRESSION: No active disease in the chest. Normal [facility] CONSULTATION REPORTon 2020 CONSULTATION REPORT NAME: CARROLL HARDEN MR#: [id number] ATHLETIC TEAM PHYSICIAN: Madelyn Leslie MD DATE OF CONSULTATION: 08/25/2020 [...] pulse ox is 98% on room air. [facility] PT NAME: CARROLL HARDEN MR#: [id number] [address] [place] [address] ACCT: [id number] : 58 CONSULTATION HEENT: Atraumatic head. Pupils [...] we are getting the results from her clinical reviewer in [place]. IMPRESSION: 1. Preop clearance for L4-L5 disk [...] courtesy of this consultation. MADELYN LESLIE MD MS/MODL/[id number] E/S: Madelyn Leslie MD 08/26/20 6880 Electronically Signed [facility] PT NAME: CARROLL HARDEN MR#: [id number] [address] [place] [address] ACCT: [id number] : 58 CONSULTATION Normal [facility] LUMB SP COMP W FLEX/EXT 6 VW S>on 08-08-2020 LUMB SP COMP W FLEX/EXT 6 VWS> STUDY: LUMB SP COMP W FLEX/EXT 6 VWS>; 08/08/2020 9:43 am INDICATION: BACK PAIN. COMPARISON: No available comparisons. ACCESSION NUMBER(S): [id number] ORDERING CLINICIAN: Tera Hernandez TECHNIQUE: 6 views [...] L5-S1 level. No evidence of instability.. Normal [facility] XR SHLDR >/=3V AP/RUSH AP/OTH R [...] Jul 03 2018 10:17AM EST [id number] N [facility] ANES Holly 06-20-2018 ANES POST HNO ID: [id number] Author: Rohit Velarde Service: Anesthesiology Author Type: [...] 20, 2018 TIME: 2:38 PM PAGER/CONTACT #: [facility] ANES PREOPon 06-20-2018 ANES PREOP HNO ID: [id number] Author: Rohit Velarde Service: Anesthesiology Author Type: [...] June 20, 2018 TIME: 9:35 AM CSN: [id number] [facility] BRIEF OP NOTon 06-20-2018 BRIEF OP NOT HNO ID: [id number] Author: Kusum Francisco Service: Orthopaedic Surgery Author Type: Resident Type: Brief Op Note Filed: 06/20/2018 5:49 PM Note Text: BRIEF OP NOTE LOG ID: [id number] Surgery/Procedure Date: 06/20/2018 Incision/Procedure Start Time: 11:18 AM Incision Close/Procedure End Time: 1:17 PM Surgeon(s)/Procedural ist(s) and Accounts Receivable Administrator(s): Surgeon(s) and Role: * Jenna Lentz - [...] 20, 2018 TIME: 5:49 PM PAGER/CONTACT #: [facility] CASE MANAGEMon 06-20-2018 CASE MANAGEM HNO ID: [id number] Author: May Herrera (Sw) Service: Care Management Author Type: Head Of Academic Technology Type: Care Mgt Progress Note Filed: 06/20/2018 [...] is pcp summary of care sent via [employer] () Nurse to provide discharge instructions. TRANSPORTATION ARRANGEMENTS: Car Spouse ADDITIONAL CONTACT RESOURCES: Needs Prior to Discharge: Ready for Discharge Appointments for Next 45 Days Date Time Provider Location Dept Phone 07/03/2018 10:00 AM CAROLA BAPTISTE AT [phone] 07/03/2018 10:30 AM GABRIEL CANTU) LATOSHA AT [phone] 07/31/2018 2:15 PM JENNA LENTZ AT [phone] Pt to be discharged home to follow up as above. SIGNATURE: DARIO Saini PATIENT NAME: Carroll Harden DATE: June 20, 2018 TIME: 5:31 PM PAGER/CONTACT #: [phone] [facility] CASE MGT INIT ASSESon 2018 CASE MGT INIT ASSES HNO ID: [id number] Author: May Herrera (Sw) Service: Care Management Author Type: Head Of Academic Technology Type: Care Mgt Initial Assessment Filed: 06/20/2018 [...] None Has the Patient Been in a Longterm Facility in the Past 30 days? 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 O.Therapy recommend home. Spouse visiting at bedside and will transport pt home later today.Further discharge needs not anticipated.SW/TCC to follow to assist with plans for discharge. SIGNATURE: DARIO Saini PATIENT NAME: Carroll Harden DATE: June 20, 2018 TIME: 5:27 PM PAGER/CONTACT #: [phone] [facility] CONSULTon 06-20-2018 CONSULT HNO ID: [id number] Author: Dulce Green Service: General Internal Medicine [...] Disp: Rfl: 06/19/2018 at 0630 rizatriptan (MAXALT DOMESTIC VIOLENCE COUNSELOR) 10 mg disintegrating tablet DISSOLVE 1 TABLET [...] the care of your patient. Dulce Green APRN.CLINICAL TEAM LEAD June 20, 2018 4:34 PM Normal [facility] NURSING PROGon 06-20-2018 Protein mass conc HNO ID: [id number] Author: Fela (Rn) FLETCHER Phillips Service: (none) Author Type: Registered Nurse Type: Nursing Progress Note Filed: 06/20/2018 7:39 PM Note Text: Nursing Progress Note Patient Name: Carroll Harden [address] Location: [address] Daily Note: 1545. Care assumed. Pt [...] at bedside. 1720. Dr. Blake and Dulce ANIMATION ARTIST at bedside, plan is to stay for [...] note was completed by: Fela Phillips RN [facility] Protein mass conc HNO ID: [id number] Author: Wendy (Rn) FLETCHER Underwood Service: Nursing Author Type: Registered Nurse Type: Nursing Progress Note Filed: 06/20/2018 10:20 AM Note Text: Nursing Progress Note Patient Name: Carroll Harden Patient Location: SURGERY [facility]* Daily Note:Right interscalene nerve block with ultrasound guidance with Dr. Velarde and Dr. Marlow at bedside. Patient tolerated procedure well, VSS, will continue to monitor as we wait for OR team. Resting comfortably with no complaints of pain at this time. This note was completed by: Wendy Underwood RN [facility] OPERATIVE NOon 06-20-2018 OPERATIVE NO HNO ID: [id number] Author: Jenna Lentz Service: Orthopaedic Surgery Author Type: Physician Type: Operative Report Filed: 06/20/2018 1:25 PM Note Text: [place] [id number] [place] OPERATIVE REPORT NAME: Carroll Harden [facility] #: [id number] DATE: 06/20/2018 (11:18am-1:17pm) AGE: 58 SURGEON 1: Jenna Lentz M.D. JOB ESTIMATOR: 1. Augie Coates M.D. 2. Kusum Prasad M.D. 3. Mundo Pablo OPERATION: Right total shoulder arthroplasty, biceps tenodesis. ANESTHESIA: General anesthesia with regional interscalene nerve block for postoperative pain control. PREOPERATIVE DIAGNOSIS: Right shoulder primary glenohumeral osteoarthritis. POSTOPERATIVE DIAGNOSIS: Right shoulder primary glenohumeral osteoarthritis, biceps tendinopathy. OPERATIVE INDICATIONS: The patient is a 58 year oldcag-mcxw-cnc right-hand dominant white female who has a [...] rotator interval stitch was then passed in bihmdj-ct-oujqt fashion with a #2 Ticron suture and tied down to close the lateral rotator interval and set the osteotomy superiorly. The two #2 Fiberwire sutures coming out of the bicipital groove were then sequentially passed in a aewkal-bt-qciuq fashion medial to the horizontal mattress and [...] none COMPLICATIONS: none apparent Jenna Lentz M.D. [facility] PT EDon 06-20-2018 PT ED HNO ID: [id number] Author: Cindy ValenciaRnTyesha Griffin RN Service: (none) [...] Signed By: Cindy Griffin RN In Department: [facility] THERAPY NTon 06-20-2018 THERAPY NT HNO ID: [id number] Author: Abi ValenciaOtTyesha Phillips Service: Occupational Therapy Author Type: Occupational Therapist Type: Therapy (PT/OT/Speech/Resp) Filed: 06/20/2018 4:59 PM Note Text: Occupational Therapy Evaluation SERVICE DATE: 06/20/2018 SERVICE TIME: 1550 to 1640 ROOM: [address] Recommended Discharge Disposition: Home Anticipated Discharge [...] living (ADL) Interventions Provided: Evaluation;Therapeuti c Exercise (14868);Self Skilled Nursing Management (55148) $ Evaluation-Low (41432) Billed Units: 1 unit Therapeutic Exercise (25372) Treatment Minutes: 10 1 unit Skilled Intervention(s): Education in Self Skilled Nursing Management (43387) Treatment Minutes: 28 2 units Skilled Intervention(s): [...] Environment Patient Lives With: Spouse Assistance Available: radio time salesperson Number Of Stairs To Bed/Bath: 0 Equipment [...] June 20, 2018 TIME: 4:54 PM Normal [facility] XR SHOULDER 2V AP/TRUE AP [...] 20 2018 2:04PM EST [id number] Normal [facility] NURSING PROGon 06-09-2018 Protein mass conc HNO ID: [id number] Author: Ivana (Rn) FLETCHER Heller Service: Nursing [...] 2018 11:10 AM Addendum 06/15/18 EKG IN [facility] FINAL Ivana Heller RN June 15, 2018 4:39 PM Normal [facility] Type and SCR (30D)on 019 ABO/RH(D) Positive Normal [facility] HOSPon 04-28-2018 HOSP Patient:Adalberto Harden MRN: Height:5' 2 (1.575 m) Weight:186 lb (84.369 kg) Outpatient Medications as of 06/20/18: calcium phosphate dibas/vit D3 (VITAMIN D, WITH CALCIUM, ORAL) docusate sodium (COLACE) 100 mg capsule aspirin, enteric coated (ECOTRIN LOW STRENGTH) 81 mg EC tablet oxyCODONE-acetaminoph en (PERCOCET) 5-325 mg tablet rizatriptan (MAXALT DOMESTIC VIOLENCE COUNSELOR) 10 mg disintegrating tablet mupirocin (BACTROBAN) 2 [...] 46.0 36.0 Progress Notes (RADIO CT SCAN [facility]): RT Lillian, Tech 06/07/2018 10:04 [...] RT Lillian June 07, 2018 9:[address] [facility] Vital Signs Date Time Vital Sign Value Performing Clinician Facility 02-24-2024 14:13040 Body height 154.[address] [facility] 02-24-2024 14:130400 Body mass index (BMI) [Ratio] 33.1 kg/m2 [facility] 02-24-2024 14:13040 Body temperature 96 [degF] [facility] 02-24-2024 14:13040 Body weight 79.[address] [facility] 02-24-2024 14:130400 Diastolic blood pressure 84 mm[Hg] [facility] 02-24-2024 14:130400 Heart rate 66 /min [facility] 02-24-2024 14:130400 Systolic blood pressure 159 mm[Hg] [facility] 12-20-2023 15:35-0400 Body height 154.[address] [facility] 12-20-2023 15:35-0400 Body mass index (BMI) [Ratio] 33.8 kg/m2 [facility] 12-20-2023 15:35-0400 Body weight 81.[address] [facility] 12-20-2023 15:35-0400 Diastolic blood pressure 80 mm[Hg] [facility] 12-20-2023 15:35-0400 Heart rate 78 /min [facility] 12-20-2023 15:35-0400 Respiratory rate 12 /min [facility] 12-20-2023 15:35-0400 Systolic blood pressure 134 mm[Hg] [facility] 04-29-2023 09:00-0500 Body height 154.94 cm Robert Ball Other [facility] [employer] Other 04-29-2023 09:00-0500 Body mass index (BMI) [Ratio] 33.14 kg/m2 Robert Ball Other [facility] [employer] Other 04-29-2023 09:00-0500 Body weight 79.56 kg Robert Ball Other [facility] [employer] Other 04-29-2023 09:00-0500 Diastolic blood pressure 89 mm[Hg] Robert Ball Other [facility] [employer] Other 04-29-2023 09:00-0500 Respiratory rate 12 /min Robert Ball Other [facility] [employer] Other 04-29-2023 09:00-0500 Systolic blood pressure 155 mm[Hg] Robert Ball Other [facility] [employer] Other 12-20-2022 13:45-0400 Body height 154.94 cm Robert Ball Other [facility] [employer] Other 12-20-2022 13:45-0400 Body mass index (BMI) [Ratio] 34.12 kg/m2 Robert Ball Other [employer] Other 12-20-2022 13:45-0400 Body weight 81.92 kg Robert Ball Other [employer] Other 12-20-2022 13:45-0400 Diastolic blood pressure 96 mm[Hg] Robert Ball Other [employer] Other 12-20-2022 13:45-0400 Respiratory rate 12 /min Robert Ball Other [employer] Other 12-20-2022 13:45-0400 Systolic blood pressure 179 mm[Hg] Robert Ball Other [employer] Other 08-04-2022 09:45-0400 Body height 154.94 cm Robert Ball Other [employer] Other 08-04-2022 09:45-0400 Body mass index (BMI) [Ratio] 33.33 kg/m2 Robert Ball Other [employer] Other 08-04-2022 09:45-0400 Body weight 80.02 kg Robert Ball Other [employer] Other 08-04-2022 09:45-0400 Diastolic blood pressure 77 mm[Hg] Robert Ball Other [employer] Other 08-04-2022 09:45-0400 Respiratory rate 12 /min Robert Ball Other [employer] Other 08-04-2022 09:45-0400 Systolic blood pressure 128 mm[Hg] Robert Ball Other [employer] Other Encounters Encounter Date Encounter Type Care Provider Facility Start: 04-09-2024 End: 04-09-2024 ambulatory Miriam Barron MD Facility: [facility] Start: 02-24-2024 End: 02-24-2024 ambulatory [facility] Work Phone: Start: 02-24-2024 End: 02-24-2024 Patient encounter procedure [facility] Physician [facility] Work Phone: Start: 02-22-2024 Non-patient / Non-visit [facility] Physician [facility] Work Phone: Start: 12-27-2023 Non-patient / Non-visit [facility] Physician [facility] Work Phone: Start: 12-20-2023 Patient encounter status [facility] Start: 12-20-2023 End: 12-20-2023 ambulatory [facility] Work Phone: Start: 12-20-2023 End: 12-20-2023 Patient encounter procedure [facility] Physician [facility] Work Phone: Start: 09-26-2023 End: 09-26-2023 ambulatory Miriam Barron MD Facility: [facility] Start: 08-15-2023 End: 08-15-2023 ambulatory Miriam Barron MD Facility: [facility] Start: 08-08-2023 End: 08-08-2023 ambulatory Miriam Barron MD Facility:[facility] Start: 06-27-2023 End: 06-27-2023 ambulatory Miriam Barron MD Facility:[facility] Start: 06-06-2023 End: 06-06-2023 ambulatory Miriam Barron MD Facility:[facility] Start: 06-01-2023 End: 06-01-2023 ambulatory Robert Cruz Other [employer] Other Start: 06-01-2023 Telephone encounter Robert Ball [facility] Start: 05-23-2023 End: 05-23-2023 ambulatory Miriam Barron MD Facility: [facility] Start: 05-13-2023 End: 05-13-2023 ambulatory Robert Ball Other [employer] Other Start: 05-13-2023 Telephone encounter Robert Ball [facility] Start: 05-09-2023 End: 05-09-2023 ambulatory Robert Ball Other [employer] Other Start: 05-09-2023 Telephone encounter Robert Ball [facility] Start: 05-04-2023 End: 05-04-2023 ambulatory Robert Ball Other [employer] Other Start: 05-04-2023 Telephone encounter Robert Ball [facility] Start: 05-02-2023 End: 05-02-2023 ambulatory Robert Ball Other [employer] Other Start: 05-02-2023 Telephone encounter Robert Ball [facility] Start: 04-29-2023 End: 04-29-2023 ambulatory Robert Ball Other [employer] Other Start: 04-29-2023 Office outpatient vi sit 15 minutes Robert Ball [facility] Start: 04-04-2023 End: 04-04-2023 ambulatory Robert Ball Other [employer] Other Start: 04-04-2023 Telephone encounter Robert Ball [facility] Start: 01-24-2023 End: 01-24-2023 ambulatory Robert Ball Other [employer] Other Start: 01-24-2023 Telephone encounter Robert Ball [facility] Start: 12-23-2022 End: 12-23-2022 ambulatory Robert Ball Other [employer] Other Start: 12-23-2022 Telephone encounter Robert Ball [facility] Start: 12-20-2022 End: 12-20-2022 ambulatory Robert Ball Other [employer] Other Start: 12-20-2022 Office outpatient vi sit 15 minutes Robert Ball [facility] Start: 12-17-2022 End: 12-17-2022 ambulatory Robert Ball Other [employer] Other Start: 12-17-2022 Telephone encounter Robert Ball [facility] Start: 11-08-2022 End: 11-08-2022 ambulatory Robert Cruz Other [employer] Other Start: 11-08-2022 Telephone encounter Robert Ball [facility] Start: 10-22-2022 End: 10-22-2022 ambulatory Robert Cruz Other [employer] Other Start: 10-22-2022 Telephone encounter Robert Ball [facility] Start: 10-13-2022 End: 10-13-2022 ambulatory Robert Cruz Other [employer] Other Start: 10-13-2022 Telephone encounter Robert Ball [facility] Start: 09-27-2022 End: 09-27-2022 ambulatory Robert Ball Other [employer] Other Start: 09-27-2022 Telephone encounter Robert Ball [facility] Start: 08-23-2022 End: 08-24-[address] RISHI PARKER Facility: Start: 08-04-2022 End: 08-04-2022 ambulatory Robert Cruz Other [employer] Other Start: 08-04-2022 Office outpatient vi sit 25 minutes Robert Ball [facility] Start: 04-03-2022 Encounter for genera l adult medical examination without abnormal findings DR ROBERT CRUZ [facility] Start: 03-30-2022 End: 03-31-[address] [...] Start: 07-03-2018 End: 07-03-2018 Patient encounter procedure [facility] Start: 06-20-2018 End: 06-20-2018 Evaluation and management of inpatient On license of [facility] Procedures Date Procedure Procedure Detail Performing Clinician Start: 06-07-2018 Antibody screen JENNA RI CCHETTI Plan of Treatment Date Care Activity Detail Author Comprehensive metabo lic 2000 panel - Serum or Plasma [facility] enter MG Breast - bilateral Diagnostic [facility] Payers Date Payer Category Payer Unknown 2022 Blue [employer] [facility] [id number] 2019 Unknown [id number] 1960 Self-pay [id number] 1959 Unknown [id number] .16.84 [id number] 1959 Unknown [id number] .16.84 0.1.960075.3.579.2.593 1959 Unknown [id number] .16.84 0.1.756242.3.579.2.593 1959 Unknown [id number] .16.84 0.1.048996.3.579.2.593 1959 Unknown [id number] 2.16.84 0.1.086484.3.579.2.593 1959 Unknown [id number] 2.16.84 0.1.642962.3.579.2.593 1959 Unknown [id number] 2.16. 840.1.769255.3.579.2.196 1959 Unknown [id number] 2.16. 840.1.954573.3.579.2.196 1959 Unknown [id number] 2.16. 840.1.773715.3.579.2.196 1959 Unknown [id number] 2.16. 840.1.396439.3.579.2.196 1959 Unknown [id number] 2.16. 840.1.937630.3.579.2.196 1959 Unknown [id number] 2.16. 840.1.721025.3.579.2.196 1959 Unknown [id number] 2.16. 840.1.095899.3.579.2.196 Unknown [id number] 2.16.84 0.1.295465.3.579.2.[address] [facility] [id number] Social History Date Type Detail Facility Sex Assigned At [facility] [employer] Other Start: 1960 Sex Assigned At Female [facility] Clinical Notes 08-04-2022 to 06-01-2023 Note [...] and without status migrainosus (ICD-10 - G43.719) [employer] Other 01-15-2024 Evaluation note* Encounter Date Diagnosis Assessment Notes Treatment Notes Treatment Clinical Notes Apr, Intractable chronic migraine without aura and without status migrainosus (ICD-10 - G43.719) [employer] Other 01-08-2024 Evaluation note* Encounter Date Diagnosis Assessment Notes Treatment Notes Treatment Clinical Notes Apr, Intractable chronic migraine without aura and without status migrainosus (ICD-10 - G43.719) [employer] Other 01-05-2024 Evaluation note* Encounter Date Diagnosis [...] Begin Amitriptyline Stop Tizanidine. 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 May want to cut back on Zanaflex. [...] Pain in left shoulder (ICD-10 - M25.512) [employer] Other 06-30-2023 Evaluation note* Encounter Date Diagnosis Assessment Notes Treatment Notes Treatment Clinical Notes Sep, Type 2 diabetes mellitus with hyperglycemia, without long-term current use of insulin (ICD-10 - E11.65) [employer] Other 06-05-2023 Evaluation note* Encounter Date Diagnosis Assessment Notes Treatment Notes Treatment Clinical Notes Sep, Candidiasis, intertriginous (ICD-10 - B37.2) [employer] Other 04-12-2023 Evaluation note* Encounter Date Diagnosis [...] use, the patient reduces the risk for OR, CVA, HTN, cardiac dysrhythmias and sudden cardiac [...] Jul, Other specified hypothyroidism (ICD-10 - E03.8) [facility] [employer] Other Evaluation noteNo [facility] [employer] Other Evaluation noteNo assessment information available [facility] Work Phone: Evaluation note* Diagnosis Onset Date Resolution Status Cervical pain acute Cervical spondylosis acute Cervical pain acute Cervical spondylosis acute Painful lumpy right breast a cute [facility] Work Phone: History general Narrative - Reported* [...] LEFT HEART CATHETERIZATION 2015 Hospitalization History SEE [facility] Other History general Narrative - Reported* Type [...] Right knee arthroscopy 10/2022 Hospitalization History SEE [facility] Other Reason for referral (narrative)* Reason Evaluation of right knee pain Diagnosis 1 Strain of right knee , subsequent encounter (G83.795Q) Referral Organization [facility] [place] roe Referring Provider First Name Robert Referring Provider Last Name [place] Referring Provider Specialty Internal Me dicine Referred Provider Rishi Parker Jr Referred Provider Specialty Orthopedic S urgery Referral Priority Routine [employer] Other Reason for referral (narrative)* Reason Referral for neck pa in Diagnosis 1 Cervicalgia (M54.2) Diagnosis 2 Cervical spondylosis (M47.812) Referral Organization [facility] [place] roe Referring Provider First Name Robert Referring Provider Last Name [place] Referring Provider Specialty Internal Me dicine Referred Organization [facility] Referred Address [address] [place], [place],[address] Referred Provider Specialty Pain Medicin e Referral Priority Routine General Notes Patient has hx of ce rvical discectomy and fusion and presented w/ persistent neck pain, which radiated upwards causing a headache. She is being referred for treatment with the pain clinic. Clinical Notes Include MRI [employer] Other Summary Purpose Family History No Family [...] section and content) DATE CREATED AUTHOR 06/20/2018 [facility] DATE CREATED AUTHOR AUTHOR'S ORGANIZ ATION 07/04/2018 [facility] DATE CREATED AUTHOR AUTHOR'S ORGANIZ ATION 09/18/2020 [facility] DATE CREATED AUTHOR AUTHOR'S ORGANIZ ATION 08/27/2022 [facility] DATE CREATED AUTHOR AUTHOR'S ORGANIZ ATION 04/18/2024 [facility] REASON FOR VISIT (unrecogniz ed section [...] BE BASED ON THE PRIMARY CLINICAL RECORDS. [facility] [employer] [facility]. provides no warranty or guarantee of the accuracy or completeness of information in this document.
[2024-05-31 12:19] LABS: Basophils Percent Auto 0.6 % (0.2-2.0); Eosinophils Absolute Auto 0.1 10^3/uL (0.0-0.7); Eosinophils Percent Auto 2.6 % (0.9-7.0); Hematocrit 38.4 % (36.0-48.0); Hemoglobin 12.9 g/dL (12.0-16.0); Immature Granulocytes Abs Auto 0.01 10^3/uL (0.00-0.03); Immature Granulocytes Pct Auto 0.2 % (0.0-0.5); Lymphocytes Percent Auto 37.5 % (20.5-60.0); Mean Corpuscular HGB Conc 33.6 g/dL (29.9-35.2); Mean Corpuscular Hemoglobin 29.3 pg (26.7-34.0); Mean Corpuscular Volume 87.3 fL (81.0-99.0); Mean Platelet Volume 9.3 fL (9.5-13.5); Monocytes Absolute Auto 0.3 10^3/uL (0.3-0.8); Monocytes Percent Auto 6.4 % (1.7-12.0); Neutrophils Absolute Auto 2.8 10^3/uL (1.4-6.5); Neutrophils Percent Auto 52.7 % (43.0-75.0); Platelet Count 197 10^3/uL (150-450); Red Cell Distribution Width 12.1 % (11.0-15.0); White Blood Count 5.3 10^3/uL (4.0-11.0)
[2024-05-31 12:21] LABS: C Reactive Protein <0.50 mg/dL (<=0.50)
[2024-05-31 12:27] LABS: Erythrocyte Sedimentation Rate 7 mm/hr (<=30)
== END 2024-05-31 11:49 | disposition home or self-care (01) ==
LOC: LAB 11:52
PROVIDERS: PCP Internal Medicine; Visit Provider Orthopaedic Surgery
DX: M25.511 Pain in right shoulder (principal)
CPT/HCPCS: 36415; 85025; 85652; 86140

== ENCOUNTER 2024-06-01 10:18 | Day surgery (SDC) | payer OTHER, SELFPAY ==
--- OUTSIDE RECORDS SUMMARY | 2024-06-01 10:39 | XMS_ITS | CCD ---
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 Role Phone JENNA LENTZ Admitting Unavailable [...] adverse reactions to drug (disorder) 09-30-19 11 [facility] Repository (2 sources) HYDROmorphone; Translations: [HYDROMORPHONE (BULK)] Drug Allergy 08-17-19 17 [facility] Repository (20 sources) Latex; Translations: [LATEX] Propensity to adverse reactions to drug (disorder) 09-30-19 11 Unknown, Unknown Reaction [facility] Repository (2 sources) Meperidine; Translations: [MEPERIDINE (PF)] Drug Allergy 09-30-19 11 [facility] Repository (2 sources) Povidone-Iodine; Translations: [POVIDONE-IODINE] Drug Allergy 10-21-19 17 [facility] Repository (2 sources) SUMAtriptan; Translations: [SUMATRIPTAN SUCCINATE] Drug Allergy 09-30-19 11 [facility] Repository (2 sources) INFLUENZA VACCINE TRI-SP 09-10; Translations: [INFLUENZA VACCINE TRI-SP 09-10] Propensity to adverse reactions to drug (disorder) 09-30-19 11 [facility] Repository (3 sources) DHE; Translations: [DHE] Propensity to adverse reactions to drug (disorder) 10-24-19 13 [facility] Repository (19 sources) HYDROmorphone Drug Allergy 12-20-19 24 Unknown, Unknown Reaction [facility] (20 sources) Iodine; Translations: [iodine] Drug Allergy 10-24-19 13 Unknown, Unknown Reaction [facility] Repository (19 sources) Meperidine Drug Allergy 12-20-19 24 Unknown, Unknown Reaction [facility] (19 sources) SUMAtriptan Drug Allergy 12-20-19 24 Unknown, Unknown Reaction [facility] (19 sources) Fluad Drug allergy 12-20-19 24 Unknown, Unknown Reaction [facility] (17 sources) DHEA Drug allergy Unknown [facility] Other (1 source) HYDROmorphone Drug Allergy 10-24-19 13 [facility] Repository (1 source) Meperidine Drug Allergy 10-24-19 13 [facility] Repository (1 source) Plasmin Drug Allergy 10-24-19 13 [facility] Repository (12 sources) influenza A virus (H1N1) antigen / influenza A virus (H3N2) antigen / influenza B virus antigen Drug Allergy 11-21-19 14 Comment:FLU VACCINE [facility] Other (12 sources) Contraindication to Flu Injection Propensity to adverse reactions 03-07-20 14 Comment:advers e rxn/side effects [facility] Other (3 sources) patient allergy list reviewed by nurse or physicia Propensity to adverse reactions 12-22-19 14 Comment:Done [facility] Other (2 sources) Calcium Drug Allergy 12-20-19 24 Unknown Reaction [facility] (2 sources) Calcium Carbonate Drug Allergy 12-20-19 Unknown Reaction [facility] (2 sources) prasterone (DHEA) Allergy to substance 12-20-19 Unknown Reaction [facility] (2 sources) Fluad Quadrivalent Allergy to substance 04-29-19 Comment:FLU VACCINE [facility] Medications Current Medications Medication Drug Class(es) [...] every two hours as needed for headache Maxalt-WOOL BRUSHER 10 MG 1 tablet Orally PRN headache, [...] Basophils (Bld) [#/Vol] 0.1 10 3/uL 0.0-0.1 [facility] Basophils/100 WBC Auto (Bld) on 12-27-2023 Basophils/100 WBC (Bld) 1.0 % 0.2-2.0 [facility] Cholesterol in LDL Calc [Mas s/Vol]on 12-27-2023 Cholesterol in LDL [Mass/Vol] 63.0 mg/dL [facility] Comment on above: <100 mg/dl [id number] 0-129 mg/dl NEAR OR ABOVE [id number] mg/dl BORDERLINE [id number] mg/dl HIGH>190 mg/dl VERY HIGH Cholesterol in VLDL Calc [Ma ss/Vol]on 12-27-2023 Cholesterol in VLDL [Mass/Vol] 45.8 mg/dL [facility] Eosinophils/100 WBC Auto (Bl d)on 12-27-2023 Eosinophils/100 WBC (Bld) 8.3 % High 0.9-7.0 [facility] Erythrocyte distribution wid th Auto (RBC) [Ratio]on 12-27-2023 Erythrocyte distribution width (RBC) [Ratio] 11.9 % 11.0-15.0 [facility] Estimated glomerular filtrat ion rate (GFR) non- Americanon 12-27-2023 GFR/1.73 sq M.predicted among non-blacks MDRD (S/P/Bld) [Vol rate/Area] 47 mL/min/{1.73_m2} Low >=60 [facility] Globulin Calc (S) [Mass/Vol] on 12-27-2023 Globulin (S) [Mass/Vol] 3.2 g/dL [facility] Glucose mean value [Mass/vol ume] in Blood Estimated from glycated hemoglobinon 12-27-2023 Average glucose Estimated from glycated hemoglobin (Bld) [Mass/Vol] 143 mg/dL [facility] Hematocrit Auto (Bld) [Volum e fraction]on 12-27-2023 Hematocrit (Bld) [Volume fraction] 39.7 % 36.0-48.0 [facility] Hemoglobin [Mass/volume] in Bloodon 12-27-2023 Hemoglobin (Bld) [Mass/Vol] 12.9 g/dL 12.0-16.0 [facility] Laboratory - Chemistry and C hemistry - challengeon 12-27-2023 Albumin [Mass/Vol] 3.7 g/dL 3.4-5.0 [facility] ALP [Catalytic activity/Vol] 61 U/L 46-116 [facility] ALT [Catalytic activity/Vol] 36 U/L 14-59 [facility] AST [Catalytic activity/Vol] 24 U/L 15-37 [facility] Bilirubin [Mass/Vol] 0.6 mg/dL 0.2-1.0 [facility] Calcium [Mass/Vol] 9.2 mg/dL 8.5-10.1 [facility] Chloride [Moles/Vol] 101 mmol/L 98-107 [facility] Cholesterol [Mass/Vol] 146 mg/dL <=200 [facility] Cholesterol in HDL [Mass/Vol] 38 mg/dL Low 40-60 [facility] Comment on above: > or =60 mg/dl - LOW CARDIOVASCULAR RISK<40 mg/dl - HIGH CARDIOVASCULAR RISK CO2 [Moles/Vol] 26.8 mmol/L 21.0-32.0 [facility] Creatinine [Mass/Vol] 1.17 mg/dL High 0.55-1.02 [facility] GFR/1.73 sq M.predicted MDRD (S/P/Bld) [Vol rate/Area] 56 mL/min/{1.73_m2} Low >=60 [facility] Glucose [Mass/Vol] 138 mg/dL High 74-106 [facility] Potassium [Moles/Vol] 4.5 mmol/L 3.5-5.1 [facility] Protein [Mass/Vol] 6.9 g/dL 6.4-8.2 [facility] Sodium [Moles/Vol] 138 mmol/L 136-145 [facility] Triglyceride [Mass/Vol] 229 mg/dL High <=150 [facility] TSH Qn 0.834 m[IU]/L 0.358-3.740 [facility] Urea nitrogen [Mass/Vol] 23.0 mg/dL High 7.0-18.0 [facility] Urea nitrogen/Creatinine [Mass ratio] 19.7 mg/mg [facility] Laboratory - Hematology and Cell countson 12-27-2023 HbA1c (Bld) [Mass fraction] 6.6 % High 4.5-6.2 [facility] Comment on above: ADA RECOMMENDED LIMI T 4.0 - 6.0ADA THERAPEUTIC TARGET < 7.0ACTION SUGGESTED> 7.0 Immature granulocytes/100 WBC (Bld) 0.4 % 0.0-0.5 [facility] Leukocytes [#/volume] correc chip for nucleated erythrocytes in Blood by Automated counon 12-27-2023 WBC corrected for nucl RBC Auto (Bld) [#/Vol] 5.2 10 3/uL 4.0-11.0 [facility] Lymphocytes Auto (Bld) [#/Vo l]on 12-27-2023 Lymphocytes (Bld) [#/Vol] 2.2 10 3/uL 1.2-3.8 [facility] Lymphocytes/100 WBC Auto (Bl d)on 12-27-2023 Lymphocytes/100 WBC (Bld) 42.1 % 20.5-60.0 [facility] MCH Auto (RBC) [Entitic mass ]on 12-27-2023 MCH (RBC) [Entitic mass] 28.5 pg 26.7-34.0 [facility] MCHC Auto (RBC) [Mass/Vol]on 12-27-2023 MCHC (RBC) [Mass/Vol] 32.5 g/dL 29.9-35.2 [facility] MCV Auto (RBC) [Entitic vol] on 12-27-2023 MCV (RBC) [Entitic vol] 87.8 fL 81.0-99.0 [facility] Monocytes Auto (Bld) [#/Vol] on 12-27-2023 Monocytes (Bld) [#/Vol] 0.3 10 3/uL 0.3-0.8 [facility] Monocytes/100 WBC Auto (Bld) on 12-27-2023 Monocytes/100 WBC (Bld) 6.4 % 1.7-12.0 [facility] Neutrophils Auto (Bld) [#/Vo l]on 12-27-2023 Neutrophils (Bld) [#/Vol] 2.2 10 3/uL 1.4-6.5 [facility] Neutrophils/100 WBC Auto (Bl d)on 12-27-2023 Neutrophils/100 WBC (Bld) 41.8 % Low 43.0-75.0 [facility] No Panel Informationon 12-26 Eosinophils # (Auto) 0.4 10 3/uL 0.0-0.7 [facility] Immature Granulocyte # (Auto) 0.02 10 3/uL 0.00-0.03 [facility] Platelet mean volume Auto (B ld) [Entitic vol]on 12-27-2023 Platelet mean volume (Bld) [Entitic vol] 9.6 fL 9.5-13.5 [facility] Platelets Auto (Bld) [#/Vol] on 12-27-2023 Platelets (Bld) [#/Vol] 190 10 3/uL 150-450 [facility] RBC Auto (Bld) [#/Vol]on RBC (Bld) [#/Vol] 4.52 10 6/uL 4.20-5.40 [facility] Serum or plasma albumin/glob ulin mass ratioon 12-27-2023 Albumin/Globulin [Mass ratio] 1.2 {ratio} [facility] Serum or plasma anion gap de terminationon 12-27-2023 Anion gap [Moles/Vol] 14.7 mmol/L [facility] Serum or plasma total choles terol/high density lipoprotein (HDL) cholesterol mass desiree 12-27-2023 Cholesterol.total/Chol esterol in HDL [Mass ratio] 3.8 {ratio} [facility] Comment on above: 3.3 - 4.4 [...] BERNY CANO Date: 2022-08-24 07:19 Normal [facility] CBC AUTO DIFFon 03-30-2022 BASO # 0.0 103/ul Normal 0.0-0.1 [facility] Comment on above: Performed By: #### C BC #### [facility] [address] [address] [address] Rc Foster Basophils/100 WBC (Bld) 0.4 % Normal 0.2-2.0 [facility] Comment on above: Performed By: #### C BC #### [facility] [address] [address] [address] Rc Foster EO # 0.3 103/ul Normal 0.0-0.7 [facility] Comment on above: Performed By: #### C BC #### [facility] [address] [address] [address] Rc Foster Eosinophils/100 WBC (Bld) 4.9 % Normal 0.9-7.0 [facility] Comment on above: Performed By: #### C BC #### [facility] [address] [address] [address] Rc Foster Erythrocyte distribution width (RBC) [Ratio] 12.2 % Normal 11.0-15.0 [facility] Comment on above: Performed By: #### C BC #### [facility] [address] [address] [address] Rc Foster Hematocrit (Bld) [Volume fraction] 39.8 % Normal 36.0-48.0 [facility] Comment on above: Performed By: #### C BC #### [facility] [address] [address] [address] Rc Foster Hemoglobin (Bld) [Mass/Vol] 13.1 g/dL Normal 12.0-16.0 [facility] Comment on above: Performed By: #### C BC #### [facility] [address] [place] [address] Dr. Rc Foster IG # 0.02 10e3/ul Normal 0.00-0.03 [facility] Comment on above: Performed By: #### C BC #### [facility] [address] [place] [address] Dr. Rc Foster IG % 0.4 % Normal 0.0-0.5 [facility] Comment on above: Performed By: #### C BC #### [facility] [address] [place] [address] Dr. Rc Foster LYMPH # 2.1 103/ul Normal 1.2-3.8 [facility] Comment on above: Performed By: #### C BC #### [facility] [address] [place] [address] Dr. Rc Foster Lymphocytes/100 WBC (Bld) 37.1 % Normal 20.5-60.0 [facility] Comment on above: Performed By: #### C BC #### [facility] [address] [place] [address] Dr. Rc Foster MANUAL DIFF REQ NO Normal [facility] Comment on above: Performed By: #### C BC #### [facility] [address] [place] [address] Dr. Rc Foster MCH (RBC) [Entitic mass] 28.7 pg Normal 26.7-34.0 [facility] Comment on above: Performed By: #### C BC #### [facility] [address] [place] [address] Dr. Rc Foster MCHC (RBC) [Mass/Vol] 32.9 g/dL Normal 29.9-35.2 [facility] Comment on above: Performed By: #### C BC #### [facility] [address] [place] [address] Dr. Rc Foster MCV (RBC) [Entitic vol] 87.1 fL Normal 81.0-99.0 [facility] Comment on above: Performed By: #### C BC #### [facility] [address] [place] [address] Dr. Rc Foster MONO # 0.4 103/ul Normal 0.3-0.8 [facility] Comment on above: Performed By: #### C BC #### [facility] [address] [place] [address] Dr. Rc Foster Monocytes/100 WBC (Bld) 6.7 % Normal 1.7-12.0 [facility] Comment on above: Performed By: #### C BC #### [facility] [address] [place] [address] Dr. Rc Foster NEUT # 2.9 103/ul Normal 1.4-6.5 [facility] Comment on above: Performed By: #### C BC #### [facility] [address] [place] [address] Dr. Rc Foster Neutrophils/100 WBC (Bld) 50.5 % Normal 43.0-75.0 [facility] Comment on above: Performed By: #### C BC #### [facility] [address] [place] [address] Dr. Rc Foster Platelet mean volume (Bld) [Entitic vol] 9.7 fL Normal 9.5-13.5 [facility] Comment on above: Performed By: #### C BC #### [facility] [address] [place] [address] Dr. Rc Foster PLT 189 103/ul Normal 150-450 [facility] Comment on above: Performed By: #### C BC #### [facility] [address] [place] [address] Dr. Rc Foster RBC 4.57 106/ul Normal 4.20-5.40 [facility] Comment on above: Performed By: #### C BC #### [facility] [address] [place] [address] Dr. Rc Foster WBC 5.7 103/ul Normal 4.0-11.0 [facility] Comment on above: Performed By: #### C BC #### [facility] [address] [place] [address] Dr. Rc Foster GLYCOHEMOGLOBIN A1Con 2021 ADA RECOMMENDATION SEE BELOW Normal [facility] Comment on above: Result Comment: ADA RECOMMENDED LIMIT 4.0 - 6.0 ADA THERAPEUTIC TARGET < 7.0 ACTION SUGGESTED > 7.0 Performed By: #### A 1C #### [facility] [address] [address] [address] Rc Foster Glucose [Mass/Vol] 143 mg/dL Normal [facility] Comment on above: Performed By: #### A 1C #### [facility] [address] [address] [address] Rc Foster HbA1c (Bld) [Mass fraction] 6.6 % Critically high 4.5-6.2 [facility] Comment on above: Performed By: #### A 1C #### [facility] [address] [address] [address] Rc Foster LIPID PROFILEon 03-30-2022 CHOL-HDL RATIO NORM SEE BELOW Normal [facility] Comment on above: Result Comment: 3.3 - 4.4 LOW RISK 4.4 - 7.1 AVERAGE RISK 7.1 - 11.0 MODERATE RISK >11.0 HIGH RISK Performed By: #### T SH, CMP, LIPID ####[facility] [address] [address]DrRodger Foster Cholesterol [Mass/Vol] 184 mg/dL Normal <=200 [facility] Comment on above: Performed By: #### T SH, CMP, LIPID ####[facility] [address] [id number] Foster Cholesterol in HDL [Mass/Vol] 42 mg/dL Normal 40-60 [facility] Comment on above: Performed By: #### T SH, CMP, LIPID ####[facility] [address] [id number] Foster Cholesterol in LDL [Mass/Vol] 87.0 mg/dL Normal [facility] Comment on above: Performed By: #### T SH, CMP, LIPID ####[facility] [address] [phone] Foster Cholesterol.total/Chol esterol in HDL [Mass ratio] 4.4 {ratio} Normal [facility] Comment on above: Performed By: #### T SH, CMP, LIPID ####[facility] [address] [id number]. Rc Foster HDL NORMAL > or = 60 mg/dl - LO W CARDIOVASCULAR RISK <40 mg/dl - HIGH CARDIOVASCULAR RISK Normal [facility] Comment on above: Performed By: #### T SH, CMP, LIPID ####[facility] [address] [address]Dr. Rc Foster LDL CALC NORMAL SEE BELOW Normal [facility] Comment on above: Result Comment: <100 mg/dl OPTIMAL 100 - 129 mg/dl NEAR OR ABOVE OPTIMAL 130 - 159 mg/dl BORDERLINE HIGH 160 - 189 mg/dl HIGH >190 mg/dl VERY HIGH Performed By: #### T MARY JANE, CMP, LIPID ####[facility] [address] [address]Dr. Rc Foster Triglyceride [Mass/Vol] 275 mg/dL Critically high <=150 [facility] Comment on above: Performed By: #### T MARY JANE CMP, LIPID ####[facility] [address] [address]Dr. Rc Foster VLDL CALC 55.0 mg/dL Normal [facility] Comment on above: Performed By: #### T SH, CMP, LIPID ####[facility] [address] [address]Dr. Rc Foster PROF 14(COMP METB)on 022 Albumin [Mass/Vol] 4.0 g/dL Normal 3.4-5.0 [facility] Comment on above: Performed By: #### T SH, CMP, LIPID ####[facility] [address] [address]Dr. Rc Foster Albumin/Globulin [Mass ratio] 1.1 {ratio} Normal [facility] Comment on above: Performed By: #### T SH, CMP, LIPID ####[facility] [address] [id number]. Rc Foster ALP [Catalytic activity/Vol] 71 U/L Normal 46-116 [facility] Comment on above: Performed By: #### T SH, CMP, LIPID ####[facility] [address] [address]Dr. Rc Foster ALT [Catalytic activity/Vol] 29 U/L Normal 14-59 [facility] Comment on above: Performed By: #### T SH, CMP, LIPID ####[facility] [address] [address]Dr. Rc Foster Anion gap [Moles/Vol] 13.2 mmol/L Normal [facility] Comment on above: Performed By: #### T MARY JANE, CMP, LIPID ####[facility] [address] [place], [place] [address]Dr. Rc Foster AST [Catalytic activity/Vol] 17 U/L Normal 15-37 [facility] Comment on above: Performed By: #### T MARY JANE, CMP, LIPID ####[facility] [address] [place], [place] [address]Dr. Rc Foster Bilirubin [Mass/Vol] 0.6 mg/dL Normal 0.2-1.0 [facility] Comment on above: Performed By: #### T SH, CMP, LIPID ####[facility] [address] [address]Dr. Rc Foster Calcium [Mass/Vol] 9.0 mg/dL Normal 8.5-10.1 [facility] Comment on above: Performed By: #### T SH, CMP, LIPID ####[facility] [address] [address]Dr. Rc Foster Chloride [Moles/Vol] 102 mmol/L Normal 98-107 [facility] Comment on above: Performed By: #### T SH, CMP, LIPID ####[facility] [address] [address]Dr. Rc Foster CO2 [Moles/Vol] 27.3 mmol/L Normal 21.0-32.0 [facility] Comment on above: Performed By: #### T SH, CMP, LIPID ####[facility] [address] [phone]. Rc Foster Creatinine [Mass/Vol] 1.00 mg/dL Normal 0.55-1.02 [facility] Comment on above: Performed By: #### T SH, CMP, LIPID ####[facility] [address] [phone]. Rc Foster EGFR-AF IVORIAN >60 Normal >=60 [facility] Comment on above: Performed By: #### T SH, CMP, LIPID ####[facility] [address] [phone]. Rc Foster EGFR-NON AF IVORIAN 56 mL/min/1.73m2 Critically low >=60 [facility] Comment on above: Performed By: #### T SH, CMP, LIPID ####[facility] [address] [address]Dr. Rc Foster Globulin (S) [Mass/Vol] 3.5 g/dL Normal [facility] Comment on above: Performed By: #### T SH, CMP, LIPID ####[facility] [address] [phone]. Rc Foster Glucose [Mass/Vol] 159 mg/dL Critically high 74-106 [facility] Comment on above: Performed By: #### T SH, CMP, LIPID ####[facility] [address] [phone]. Rc Foster Potassium [Moles/Vol] 4.5 mmol/L Normal 3.5-5.1 [facility] Comment on above: Performed By: #### T SH, CMP, LIPID ####[facility] [address] [phone]. Rc Foster Protein [Mass/Vol] 7.5 g/dL Normal 6.4-8.2 [facility] Comment on above: Performed By: #### T SH, CMP, LIPID ####[facility] [address] [phone]. Rc Foster Sodium [Moles/Vol] 138 mmol/L Normal 136-145 [facility] Comment on above: Performed By: #### T SH, CMP, LIPID ####[facility] [address] [place], [place] [address]Eq. Rc Foster Urea nitrogen [Mass/Vol] 23.0 mg/dL Critically high 7.0-18.0 [facility] Comment on above: Performed By: #### T SH, CMP, LIPID ####[facility] [address] [place], [place] [address]Qp. Rc Foster Urea nitrogen/Creatinine [Mass ratio] 23.0 mg/mg Normal [facility] Comment on above: Performed By: #### T SH, CMP, LIPID ####[facility] [address] [place], [place] [address]Tt. Rc Foster TSHon 03-30-2022 TSH 2.807 uIU/mL Normal 0.358-3.740 [facility] Comment on above: Performed By: #### T SH, CMP, LIPID ####[facility] [address] [place], [place] [address]Su. Rc Foster US THYROIDon 03-30-2022 US THYROID [...] BERNY CANO Date: 2022-03-30 11:03 Normal [facility] MAMM SCREEN 3D LEX CADon 03-19-2022 MG MAMM SCREEN 3D LEX CAD Patient: CARROLL HARDEN Exam Date: 03/19/2022 : 1960 Gender:F Ordering : DR ROBERT CRUZ D.O. Admission #: [id number] Family : Order #: [id number] CLICK HERE TO VIEW EXAM RADIOLOGY REPORT [...] Treatments None Family Cancers None LOCATION: [facility] BREAST COMPOSITION: Scattered areas fibroglandular [...] Cano M.D. on 03/23/2022 at 11:59 Normal [facility] CBC AUTO DIFFon 11-27-2021 BASO # 0.0 103/ul Normal 0.0-0.1 [facility] Comment on above: Performed By: #### C BC #### [facility] [address] [address] [address] Rc Foster Basophils/100 WBC (Bld) 0.7 % Normal 0.2-2.0 [facility] Comment on above: Performed By: #### C BC #### [facility] [address] [place] [address] Dr. Rc Foster EO # 0.6 103/ul Normal 0.0-0.7 [facility] Comment on above: Performed By: #### C BC #### [facility] [address] [place] [address] Dr. Rc Foster Eosinophils/100 WBC (Bld) 10.3 % Critically high 0.9-7.0 [facility] Comment on above: Performed By: #### C BC #### [facility] [address] [place] [address] Dr. Rc Foster Erythrocyte distribution width (RBC) [Ratio] 12.4 % Normal 11.0-15.0 [facility] Comment on above: Performed By: #### C BC #### [facility] [address] [place] [address] Dr. Rc Foster Hematocrit (Bld) [Volume fraction] 41.2 % Normal 36.0-48.0 [facility] Comment on above: Performed By: #### C BC #### [facility] [address] [place] [address] Dr. Rc Foster Hemoglobin (Bld) [Mass/Vol] 13.4 g/dL Normal 12.0-16.0 [facility] Comment on above: Performed By: #### C BC #### [facility] [address] [place] [address] Dr. Rc Foster IG # 0.01 10e3/ul Normal 0.00-0.03 [facility] [facility] Comment on above: Performed By: #### C BC #### [facility] [address] [place] [address] Dr. Rc Foster IG % 0.2 % Normal 0.0-0.5 [facility] Comment on above: Performed By: #### C BC #### [facility] [address] [place] [address] Dr. Rc Foster LYMPH # 2.3 103/ul Normal 1.2-3.8 [facility] Comment on above: Performed By: #### C BC #### [facility] [address] [place] [address] Dr. Rc Foster Lymphocytes/100 WBC (Bld) 40.6 % Normal 20.5-60.0 [facility] Comment on above: Performed By: #### C BC #### [facility] [address] [place] [address] Dr. Rc Foster MANUAL DIFF REQ NO Normal [facility] Comment on above: Performed By: #### C BC #### [facility] [address] [place] [address] Dr. Rc Foster MCH (RBC) [Entitic mass] 28.8 pg Normal 26.7-34.0 [facility] Comment on above: Performed By: #### C BC #### [facility] [address] [place] [address] Dr. Rc Foster MCHC (RBC) [Mass/Vol] 32.5 g/dL Normal 29.9-35.2 [facility] Comment on above: Performed By: #### C BC #### [facility] [address] [place] [address] Dr. Rc Foster MCV (RBC) [Entitic vol] 88.6 fL Normal 81.0-99.0 [facility] Comment on above: Performed By: #### C BC #### [facility] [address] [place] [address] Dr. Rc Foster MONO # 0.4 103/ul Normal 0.3-0.8 [facility] Comment on above: Performed By: #### C BC #### [facility] [address] [place] [address] Dr. Rc Foster Monocytes/100 WBC (Bld) 7.6 % Normal 1.7-12.0 [facility] Comment on above: Performed By: #### C BC #### [facility] [address] [place] [address] Dr. Rc Foster NEUT # 2.3 103/ul Normal 1.4-6.5 [facility] Comment on above: Performed By: #### C BC #### [facility] [address] [place] [address] Dr. Rc Foster Neutrophils/100 WBC (Bld) 40.6 % Critically low 43.0-75.0 [facility] Comment on above: Performed By: #### C BC #### [facility] [address] [place] [address] Dr. Rc Foster Platelet mean volume (Bld) [Entitic vol] 9.6 fL Normal 9.5-13.5 [facility] Comment on above: Performed By: #### C BC #### [facility] [address] [place] [address] Dr. Rc Foster PLT 194 103/ul Normal 150-450 [facility] Comment on above: Performed By: #### C BC #### [facility] [address] [place] [address] Dr. Rc Foster RBC 4.65 106/ul Normal 4.20-5.40 [facility] Comment on above: Performed By: #### C BC #### [facility] [address] [place] [address] Dr. Rc Foster WBC 5.5 103/ul Normal 4.0-11.0 [facility] Comment on above: Performed By: #### C BC #### [facility] [address] [place] [address] Dr. Rc Foster GLYCOHEMOGLOBIN A1Con 2021 ADA RECOMMENDATION SEE BELOW Normal [facility] Comment on above: Result Comment: ADA RECOMMENDED LIMIT 4.0 - 6.0 ADA THERAPEUTIC TARGET < 7.0 ACTION SUGGESTED > 7.0 Performed By: #### A 1C #### [facility] [address] [place] [address] Dr. Rc Foster Glucose [Mass/Vol] 131 mg/dL Normal [facility] Comment on above: Performed By: #### A 1C #### [facility] [address] [place] [address] Dr. Rc Foster HbA1c (Bld) [Mass fraction] 6.2 % Normal 4.5-6.2 [facility] Comment on above: Performed By: #### A 1C #### [facility] [address] [place] [address] Dr. Rc Foster PROF CHEM 8 (BAS METB)on Anion gap [Moles/Vol] 15.2 mmol/L Normal [facility] Comment on above: Performed By: #### T SH, BMP #### [facility] [address] [place] [address] Dr. Rc Foster Calcium [Mass/Vol] 8.5 mg/dL Normal 8.5-10.1 [facility] Comment on above: Performed By: #### T SH, BMP #### [facility] [address] [address] [address] Rc Foster Chloride [Moles/Vol] 100 mmol/L Normal 98-107 [facility] Comment on above: Performed By: #### T SH, BMP #### [facility] [address] [place] [address] Dr. Rc Foster CO2 [Moles/Vol] 26.6 mmol/L Normal 21.0-32.0 [facility] Comment on above: Performed By: #### T SH, BMP #### [facility] [address] [address] [address] Rc Foster Creatinine [Mass/Vol] 1.15 mg/dL Critically high 0.55-1.02 [facility] Comment on above: Performed By: #### T SH, BMP #### [facility] [address] [place] [address] Dr. Rc Foster EGFR-AF IVORIAN 58 mL/min/1.73m2 Critically low >=60 [facility] Comment on above: Performed By: #### T SH, BMP #### [facility] [address] [place] [address] Dr. Rc Foster EGFR-NON AF IVORIAN 48 mL/min/1.73m2 Critically low >=60 [facility] Comment on above: Performed By: #### T SH, BMP #### [facility] [address] [place] [address] Dr. Rc Foster Glucose [Mass/Vol] 211 mg/dL Critically high 74-106 [facility] Comment on above: Performed By: #### T SH, BMP #### [facility] [address] [place] [address] Dr. Rc Foster Potassium [Moles/Vol] 4.8 mmol/L Normal 3.5-5.1 [facility] Comment on above: Performed By: #### T SH, BMP #### [facility] [address] [place] [address] Dr. Rc Foster Sodium [Moles/Vol] 137 mmol/L Normal 136-145 [facility] Comment on above: Performed By: #### T SH, BMP #### [facility] [address] [place] [address] Dr. Rc Foster Urea nitrogen [Mass/Vol] 33.0 mg/dL Critically high 7.0-18.0 [facility] Comment on above: Performed By: #### T SH, BMP #### [facility] [address] [place] [address] Dr. Rc Foster Urea nitrogen/Creatinine [Mass ratio] 28.7 mg/mg Normal [facility] Comment on above: Performed By: #### T SH, BMP #### [facility] [address] [place] [address] Dr. Rc Foster TSHon 11-27-2021 TSH 0.744 uIU/mL Normal 0.358-3.740 [facility] Comment on above: Performed By: #### T SH, BMP #### [facility] [address] [place] [address] Dr. Rc Foster SYMPTOMATIC COVID-19 ANTIGEN on 10-28-2021 EUA Statement SEE BELOW Normal [facility] Comment on above: Result Comment: [...] revoked sooner. Performed By: #### C VDAGS ####[facility] [address] [place], [place] [address]XxRodger Foster SARS-CoV-2 (COVID-19) RNA YARED+probe Ql (Unsp spec) Negative Normal NEGATIVE [facility] Comment on above: Performed By: #### C VDAGS ####[facility] [address] [place], [place] [address]DpRodger Foster GLYCOHEMOGLOBIN A1Con 2021 ADA RECOMMENDATION SEE BELOW Normal [facility] Comment on above: Result Comment: ADA RECOMMENDED LIMIT 4.0 - 6.0 ADA THERAPEUTIC TARGET < 7.0 ACTION SUGGESTED > 7.0 Performed By: #### A 1C #### [facility] [address] [address] [address] Rc Foster Glucose [Mass/Vol] 128 mg/dL Normal [facility] Comment on above: Performed By: #### A 1C #### [facility] [address] [address] [address] Rc Foster HbA1c (Bld) [Mass fraction] 6.1 % Normal 4.5-6.2 [facility] Comment on above: Performed By: #### A 1C #### [facility] [address] [address] [address] Rc Foster Discharge CCD Assessmenton 0 09-06-2020 Discharge CCD Assessment [facility] Patient: CARROLL HARDEN [address] [place] [address] MR#: [id number] DISCHARGE CCD ASSESSMENT : 58 Service Date: 09/06/20 1018 Discharge CCD Assessment Assessment Patient discharged home to continue exercises, pain medication, and wound care Electronically Signed eSign Date and Time Melyssa Flores 09/06/20 1019 Tera Hernandez MD Normal [facility] GLUCOSE METERon 09-06-2020 Glucose [Mass/Vol] 126 mg/dL High 70-99 [facility] Comment on above: Order Comment: CONSE RVATION Result Comment: Fast ing GLUCOSE reference range has been updated per (ADA) [place] Diabetes Association's recommendation. 07/18/2018 Performed By: #### L 500.51720 ####Test performed at: [address] [address] Glucose [Mass/Vol] 205 mg/dL High 70-99 [facility] Comment on above: Order Comment: CONSE RVATION Result Comment: Fast ing GLUCOSE reference range has been updated per (ADA) [place] Diabetes Association's recommendation. 07/18/2018 Insulin per sl scale Performed By: #### L 500.02661 #### Test performed at: [address] [address] Internal Med Progress Noteon 09-06-2020 Internal Med Progress Note [facility] Patient: CARROLL HARDEN [address] [place] [address] MR#: [id number] PROGRESS NOTE - Internal Medicine : 58 [...] RES, Katarzy na MD 09/06/20 1134 Normal [facility] Orthopedic Progress Noteon 0 09-06-2020 Orthopedic Progress Note [facility] Patient: CARROLL HARDEN [address] [place] [address] MR#: [id number] PROGRESS NOTE - Orthopedic : 58 Service [...] RN 09/06/20 1022 Tera Hernandez MD Normal [facility] Anesthesia Noteon 09-05-2020 Anesthesia Note [facility] Patient: CARROLL HARDEN [address] [place] [address] MR#: [id number] ANESTHESIA NOTE : Service Date: 09/05/20811 Post-anesthesia [...] Signed eSign Date and Time Krystian Akers SUSTAINABILITY EXECUTIVE DIRECTOR-BUYING AGENT 09/05/20 0813 Chu Glez MD Normal [facility] BASIC MET PANELon 09-05-2020 Anion gap [Moles/Vol] 12 mmol/L Normal 6-18 [facility] Comment on above: Performed By: #### L 500.60758, L500.19136 #### Test performed at: [address] [address] Calcium [Mass/Vol] 8.7 mg/dL Normal 8.5-10.1 [facility] Comment on above: Performed By: #### L 500.01651, L500.55382 #### Test performed at: [address] [address] Chloride [Moles/Vol] 101 mmol/L Normal 98-107 [facility] Comment on above: Performed By: #### L 500.20889, L500.59157 #### Test performed at: [address] [address] CO2 [Moles/Vol] 25 mmol/L Normal 21-32 [facility] Comment on above: Performed By: #### L 500.64136, L500.09757 #### Test performed at: [address] [address] Creatinine [Mass/Vol] 1.020 mg/dL Normal 0.550-1.020 [facility] Comment on above: Performed By: #### L 500.12636, L500.59157 #### Test performed at: [address] [address] Glucose [Mass/Vol] 264 mg/dL High 70-99 [facility] Comment on above: Result Comment: Fast ing GLUCOSE reference range has been updated per (ADA) [employer] Diabetes Association's recommendation. 07/18/2018 Performed By: #### L 500.32585, L500.42955 #### Test performed at: [address] [address] OSM 289 mosm/kg Normal 270-300 [facility] Comment on above: Performed By: #### L 500.88419, L500.98811 #### Test performed at: [address] [address] Potassium [Moles/Vol] 4.5 mmol/L Normal 3.5-5.1 [facility] Comment on above: Performed By: #### L 500.35324, L500.93560 #### Test performed at: [address] [address] Sodium [Moles/Vol] 134 mmol/L Low 136-145 [facility] Comment on above: Performed By: #### L 500.78759, L500.90896 #### Test performed at: [address] [address] Urea nitrogen [Mass/Vol] 17 mg/dL Normal 7-18 [facility] Comment on above: Performed By: #### L 500.69338, L500.24292 #### Test performed at: [address] [address] GFR ESTIMATEon 09-05-2020 IF AMER > 60 Normal > 60 [facility] Comment on above: Result Comment: eGFR (Estimated GFR) Units of measure:mL/min/1.73 meters sq. *CALCULATION REVISED 02/11/2015;IDMS-traceable MDRD equation eGFR is derived from the reexpressed MDRD Study equation using the following parameters: serum creatinine, age, gender and race. An eGFR<60 mL/min/1.73m2 for >3 months is consistent with chronic kidney disease. Refer to KDOQI guidelines for clinical interpretation. Performed By: #### L 500.32274, L500.89956 #### Test performed at: [address] [address] IF non-AFR AMER 55 Low > 60 [facility] Comment on above: Performed By: #### L 500.81561, L500.93276 #### Test performed at: [address] [address] GLUCOSE METERon 09-05-2020 Glucose [Mass/Vol] 177 mg/dL High 70-99 [facility] Comment on above: Order Comment: CONSE RVATION Result Comment: Fast ing GLUCOSE reference range has been updated per (ADA) [employer] Diabetes Association's recommendation. 07/18/2018 Performed By: #### L 500.79792 #### Test performed at: [address] [address] Glucose [Mass/Vol] 310 mg/dL High 70-99 [facility] Comment on above: Result Comment: Fast ing GLUCOSE reference range has been updated per (ADA) [employer] Diabetes Association's recommendation. 07/18/2018 Insulin per sl scale Performed By: #### L 500.72038 ####Test performed at: [address] [address] Glucose [Mass/Vol] 281 mg/dL High 70-99 [facility] Comment on above: Result Comment: Fast ing GLUCOSE reference range has been updated per (ADA) [employer] Diabetes Association's recommendation. 07/18/2018 Insulin per sl scale Performed By: #### L 500.50843 #### Test performed at: [address] [address] Glucose [Mass/Vol] 105 mg/dL High 70-99 [facility] Comment on above: Result Comment: Fast ing GLUCOSE reference range has been updated per (ADA) [employer] Diabetes Association's recommendation. 07/18/2018 Performed By: #### L 500.54388 #### Test performed at: [place] [address] HGB AND HCTon 09-05-2020 Hematocrit (Bld) [Volume fraction] 37.5 % Normal 36.0-48.0 [facility] Comment on above: Performed By: #### L 200.45486 #### Test performed at: [address] [address] Hemoglobin (Bld) [Mass/Vol] 12.5 g/dL Normal 12.0-15.0 [facility] Comment on above: Performed By: #### L 200.87819 #### Test performed at: [address] [address] Internal Med Progress Noteon 09-05-2020 Internal Med Progress Note [facility] Patient: CARROLL HARDEN [address] [place] [address] MR#: [id number] PROGRESS NOTE - Internal Medicine : 58 [...] input. Disc (more content not included)... Normal [facility] OT Therapy Recommendationson 09-05-2020 OT Therapy Recommendations [facility] Patient: CARROLL HARDEN [address] [address] MR#: [id number] OT THERAPY RECOMMENDATIONS : 58 Service Date: 09/05/20 151 Therapy Recommendations Therapy Recommendations Recommendations OT evaluation completed. OT recommends HOME with FAmily assist. No further acute OT needs are indicated at this time. Electronically Signed eSign Date and Time Trupti Rojas OT 09/05/20 1512 Normal [facility] Orthopedic Progress Noteon 0 09-05-2020 Orthopedic Progress Note [facility] Patient: CARROLL HARDEN [address] [address] MR#: [id number] PROGRESS NOTE - Orthopedic : 58 Service [...] PESICKA,RUBEN 09/05/20 1429 Tera Hernandez MD Normal [facility] PT Therapy Recommendationson 09-05-2020 PT Therapy Recommendations [facility] Patient: CARROLL HARDEN [address] [id number] MR#: [id number] PT THERAPY RECOMMENDATIONS : 58 Service Date: 09/05/20 0914 Therapy Recommendations Therapy Recommendations Recommendations PT eval complete. No further acute PT needs. Recommend d/c home /c family assist. Electronically Signed eSign Date and Time Tiffanie Bashir PT 09/05/20 0914 Normal [facility] z OT Inpatient Discharge Not juan 09-05-2020 z OT Inpatient Discharge Note [facility] Patient: CARROLL HARDEN [address] [id number] MR#: [id number] OT INPATIENT DISCHARGE NOTE : 58 Service [...] Time Trupti Rojas OT 09/05/20 1534 Normal [facility] z OT Inpatient Evaluationon 09-05-2020 z OT Inpatient Evaluation [facility] Patient: CARROLL HARDEN [address] [id number] MR#: [id number] OT INPATIENT EVALUATION : 58 Inpatient OT HPI Date of Service 09/05/20 Time In: 1401 Time Out: 1412 Total Treatment Time (Mins) 11 Visit Reason LATERAL RECESS STENOSIS W/ RADICULOPATHY Surgery Type/Date s/p L L4-5 LAmi, foraminotomy, decompression on 09.04.20/ Lumbar spine precautions Referral Date 09/04/20 Tx Diagnosis: LOW BACK PAIN Insurance Name [employer]IR[employer] [facility] [place] Course Pt is a left hand [...] 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 Objective Precautions Lumbar [...] Excellent Nader (more content not included)... Normal [facility] z PT Inpatient Discharge Not juan 09-05-2020 z PT Inpatient Discharge Note [facility] Patient: CARROLL HARDEN [address] [place] [address] MR#: [id number] PT INPATIENT DISCHARGE NOTE : 58 Service [...] Time Tiffanie Bashir PT 09/05/20 1139 Normal [facility] z PT Inpatient Evaluationon 09-05-2020 z PT Inpatient Evaluation [facility] Patient: CARROLL HARDEN [address] [place] [address] MR#: [id number] PT INPATIENT EVALUATION : 58 Service Date: 09/05/20 0928 Inpatient PT HPI Date of Service 09/05/20 Time In: 0845 Time Out: 0907 Total Treatment Time (Mins) 22 Room Number 624 Visit Reason LATERAL RECESS STENOSIS W/ RADICULOPATHY Surgery Type: L L4-5 lami, foraminotomy, decompression Surgery Date: 09/04/20 Referral Date 09/04/20 Tx Diagnosis: LOW BACK PAIN Insurance Name [employer] [facility] Hospital Course 60 y.o female at [facility] for above sx d/t lateral recess [...] posture. 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 Pt agreeable to use of her cane [...] Time Tiffanie Bashir PT 09/05/20 1502 Normal [facility] GLUCOSE METERon 09-04-2020 Glucose [Mass/Vol] 94 mg/dL Normal 70-99 [facility] Comment on above: Result Comment: Fast ing GLUCOSE reference range has been updated per (ADA) [employer] Diabetes Association's recommendation. 07/18/2018 Performed By: #### L 500.57947 ####Test performed at: [place] [address] Internal Medicine Consultati onon 09-04-2020 Internal Medicine Consultation [facility] Patient: CARROLL HARDEN [address] [place] [address] MR#: [id number] CONSULTATION - Internal Medicine : 58 Service [...] of Systems (more content not included)... Normal [facility] OPERATIVE REPORTon OPERATIVE REPORT NAME: CARROLL HARDEN MR#: [id number] SURGEON: Tera Hernandez MD DATE OF SURGERY: [...] there were no complications. TERA HERNANDEZ MD [facility] PT NAME: CARROLL HARDEN MR#: [id number] [address] [place], [place] [address] ACCT: [id number] : 58 OPERATIVE REPORT JFS/MODL/[id number] E/S: Tera Hernandez MD 09/18/20 1207 Electronically Signed [facility] PT NAME: CARROLL HARDEN MR#: [id number] [address] [place] [address] ACCT: [id number] : 58 OPERATIVE REPORT Normal [facility] Primary Residenton 1 Primary Resident [facility] Pt Name: CARROLL HARDEN MR#: [id number] [address] [place] [address] ACCT: [id number] [address] [place] [id number] : 58 Service Date: 09/04/20 1603 Primary Resident/Call Primary Resident: [id number] After Hours Call: [phone] Red Team Electronically Signed eSign Date and Time Ana Flanagan RES 09/16/20 1521 Normal [facility] LUMBAR SPINE 2 OR 3 VIEWSon 09-03-2020 LUMBAR SPINE 2 OR 3 VIEWS STUDY: LUMBAR SPINE 2 OR 3 VIEWS; 09/04/2020 2:57 pm INDICATION: LEFT L4-L5 LAMINECTOMY,FORAMINOT JOSE ANGEL,DECOMPRESSION. COMPARISON: None. ACCESSION NUMBER(S): [id number] ORDERING CLINICIAN: Tera Hernandez FINDINGS: Intraoperative fluoroscopy of the lumbar spine demonstrates surgical instruments posterior to L5. IMPRESSION: As above Normal [facility] CHEST PA/AP & LATERALon CHEST PA/AP & LATERAL STUDY: CHEST PA/AP LATERAL; 08/25/2020 11:00 am INDICATION: SOB/PAT. COMPARISON: None. ACCESSION NUMBER(S): [id number] ORDERING CLINICIAN: Madelyn Leslie FINDINGS: The lungs are clear without pleural effusion. Normal heart size, mediastinum, elzbieta, and pulmonary vasculature. IMPRESSION: No active disease in the chest. Normal [facility] CONSULTATION REPORTon 2020 CONSULTATION REPORT NAME: CARROLL HARDEN MR#: [id number] AUTO PAINTER HELPER: Madelyn Leslie MD DATE OF CONSULTATION: [...] pulse ox is 98% on room air. [facility] PT NAME: CARROLL HARDEN MR#: [id number] [address] [place] [address] ACCT: [id number] : 58 CONSULTATION HEENT: Atraumatic head. 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 IMPRESSION: 1. Preop clearance for L4-L5 disk [...] courtesy of this consultation. MADELYN LESLIE MD MS/MODL/[id number] E/S: Madelyn Leslie MD 08/26/20 2420 Electronically Signed [facility] PT NAME: CARROLL HARDEN MR#: [id number] [address] [place] [address] ACCT: [id number] : 58 CONSULTATION Normal [facility] LUMB SP COMP W FLEX/EXT 6 VW S>on 08-08-2020 LUMB SP COMP W FLEX/EXT 6 VWS> STUDY: LUMB SP COMP W FLEX/EXT 6 VWS>; 08/08/2020 9:43 am INDICATION: BACK PAIN. COMPARISON: No available comparisons. ACCESSION NUMBER(S): [id number] ORDERING CLINICIAN: Tera Hernandez TECHNIQUE: 6 views [...] L5-S1 level. No evidence of instability.. Normal [facility] XR SHLDR >/=3V AP/RUSH AP/OTH R RTon [...] Jul 03 2018 10:17AM EST [id number] N [facility] ANES [place] 06-20-2018 ANES POST HNO ID: [id number] Author: Rohit Velarde Service: Anesthesiology Author Type: [...] 20, 2018 TIME: 2:38 PM PAGER/CONTACT #: [facility] ANES PREOPon 06-20-2018 ANES PREOP HNO ID: [id number] Author: Rohit Velarde Service: Anesthesiology Author Type: [...] June 20, 2018 TIME: 9:35 AM CSN: [id number] [facility] BRIEF OP NOTon 06-20-2018 BRIEF OP NOT HNO ID: [id number] Author: Kusum Francisco Service: Orthopaedic Surgery Author Type: Resident Type: Brief Op Note Filed: 06/20/2018 5:49 PM Note Text: BRIEF OP NOTE LOG ID: [id number] Surgery/Procedure Date: 06/20/2018 Incision/Procedure Start Time: 11:18 AM Incision Close/Procedure End Time: 1:17 PM Surgeon(s)/Procedural ist(s) and Audiometrist(s): Surgeon(s) and Role: * Jenna Lentz - [...] 20, 2018 TIME: 5:49 PM PAGER/CONTACT #: [facility] CASE MANAGEMon 06-20-2018 CASE MANAGEM HNO ID: [id number] Author: May Herrera ([place]) Service: Care Management Author Type: Bright Cutter Type: Care Mgt Progress Note Filed: 06/20/2018 [...] is pcp summary of care sent via [employer] () Nurse to provide discharge instructions. TRANSPORTATION ARRANGEMENTS: Car Spouse ADDITIONAL CONTACT RESOURCES: Needs Prior to Discharge: Ready for Discharge Appointments for Next 45 Days Date Time Provider Location Dept Phone 07/03/2018 10:00 AM CAROLA BAPTISTE AT [phone] 07/03/2018 10:30 AM GABRIEL CANTU) LATOSHA AT [phone] 07/31/2018 2:15 PM JENNA LENTZ AT [phone] Pt to be discharged home to follow up as above. SIGNATURE: DARIO Saini PATIENT NAME: Carroll Harden DATE: June 20, 2018 TIME: 5:31 PM PAGER/CONTACT #: [id number] [facility] CASE MGT INIT ASSESon 2018 CASE MGT INIT ASSES HNO ID: [id number] Author: May Herrera (Sw) Service: Care Management Author Type: Bright Cutter Type: Care Mgt Initial Assessment Filed: 06/20/2018 [...] None Has the Patient Been in a Halfway Facility in the Past 30 days? 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. O.Therapy recommend home. Spouse visiting at bedside and will transport pt home later today.Further discharge needs not anticipated.SW/TCC to follow to assist with plans for discharge. SIGNATURE: DARIO Saini PATIENT NAME: Carroll Harden DATE: June 20, 2018 TIME: 5:27 PM PAGER/CONTACT #: [id number] [facility] CONSULTon 06-20-2018 CONSULT HNO ID: [id number] Author: Dulce Green Service: General Internal Medicine [...] Disp: Rfl: 06/19/2018 at 0630 rizatriptan (MAXALT WOOL BRUSHER) 10 mg disintegrating tablet DISSOLVE 1 TABLET [...] the care of your patient. Dulce Green APRN.FORENSIC TECHNICIAN June 20, 2018 4:34 PM Normal [facility] NURSING PROGon 06-20-2018 Protein mass conc HNO ID: [id number] Author: Fela (Rn) FLETCHER Phillips Service: (none) Author Type: Registered Nurse Type: Nursing Progress Note Filed: 06/20/2018 7:39 PM Note Text: Nursing Progress Note Patient Name: Carroll Harden [address]: [address] Daily Note: 1545. Care assumed. Pt [...] at bedside. 1720. Dr. Blake and Dulce TILE SETTER SUPERVISOR at bedside, plan is to stay [...] note was completed by: Fela Phillips RN [facility] Protein mass conc HNO ID: [id number] Author: Wendy (Rn) FLETCHER Underwood Service: Nursing Author Type: Registered Nurse Type: Nursing Progress Note Filed: 06/20/2018 10:20 AM Note Text: Nursing Progress Note Patient Name: Carroll Harden Patient Location: SURGERY [facility] Daily Note:Right interscalene nerve block with ultrasound guidance with Dr. Velarde and Dr. Marlow at bedside. Patient tolerated procedure well, VSS, will continue to monitor as we wait for OR team. Resting comfortably with no complaints of pain at this time. This note was completed by: Wendy Underwood RN [facility] OPERATIVE NOon 06-20-2018 OPERATIVE NO HNO ID: [id number] Author: Jenna Lentz Service: Orthopaedic Surgery Author Type: Physician Type: Operative Report Filed: 06/20/2018 1:25 PM Note Text: [place] [id number] [place] OPERATIVE REPORT NAME: Carroll Harden [facility] #: [id number] DATE: 06/20/2018 (11:18am-1:17pm) AGE: 58 SURGEON 1: Jenna Lentz M.D. SOCIAL WORKER HEALTH SERVICES: 1. Augie Coates M.D. 2. Kusum Prasad M.D. 3. Mundo Pablo OPERATION: Right total shoulder arthroplasty, biceps tenodesis. ANESTHESIA: General anesthesia with regional interscalene nerve block for postoperative pain control. PREOPERATIVE DIAGNOSIS: Right shoulder primary glenohumeral osteoarthritis. POSTOPERATIVE DIAGNOSIS: Right shoulder primary glenohumeral osteoarthritis, biceps tendinopathy. OPERATIVE INDICATIONS: The patient is a 58 year oldkcc-dhzt-sms right-hand dominant white female who has a [...] rotator interval stitch was then passed in bxkxww-ms-chopk fashion with a #2 Ticron suture and tied down to close the lateral rotator interval and set the osteotomy superiorly. The two #2 Fiberwire sutures coming out of the bicipital groove were then sequentially passed in a kwgbvo-ba-ownmk fashion medial to the horizontal mattress and [...] none COMPLICATIONS: none apparent Jenna Lentz M.D. [facility] PT EDon 06-20-2018 PT ED HNO ID: [id number] Author: Cindy ValenciaRnTyesha Griffin RN Service: (none) [...] Signed By: Cindy Griffin RN In Department: [facility] SURGICAL SERVICES [facility] THERAPY NTon 06-20-2018 THERAPY NT HNO ID: [id number] Author: Abi ValenciaOtTyesah Phillips Service: Occupational Therapy Author Type: Occupational Therapist Type: Therapy (PT/OT/Speech/Resp) Filed: 06/20/2018 4:59 PM Note Text: Occupational Therapy Evaluation SERVICE DATE: 06/20/2018 SERVICE TIME: 1550 to 1640 ROOM: [address] Recommended Discharge Disposition: Home Anticipated Discharge [...] living (ADL) Interventions Provided: Evaluation;Therapeuti c Exercise (90470);Self Penitentiary Management (15477) $ Evaluation-Low (22441) Billed Units: 1 unit Therapeutic Exercise (06656) Treatment Minutes: 10 1 unit Skilled Intervention(s): Education in Self Penitentiary Management (63091) Treatment Minutes: 28 2 units Skilled Intervention(s): [...] June 20, 2018 TIME: 4:54 PM Normal [facility] XR SHOULDER 2V AP/TRUE AP RT [...] 20 2018 2:04PM EST [id number] Normal [facility] NURSING PROGon 06-09-2018 Protein mass conc HNO ID: [id number] Author: Ivana (Rn) FLETCHER Heller Service: Nursing [...] 2018 11:10 AM Addendum 06/15/18 EKG IN [facility] FINAL Ivana Heller RN June 15, 2018 4:39 PM Normal [facility] Type and SCR (30D)on 019 ABO/RH(D) Positive Normal [facility] HOSPon 04-28-2018 HOSP Patient:Adalberto Harden MRN: Height:5' 2 (1.575 m) Weight:186 lb (84.369 kg) Outpatient Medications as of 06/20/18: calcium phosphate dibas/vit D3 (VITAMIN D, WITH CALCIUM, ORAL) docusate sodium (COLACE) 100 mg capsule aspirin, enteric coated (ECOTRIN LOW STRENGTH) 81 mg EC tablet oxyCODONE-acetaminoph en (PERCOCET) 5-325 mg tablet rizatriptan (MAXALT WOOL BRUSHER) 10 mg disintegrating tablet mupirocin (BACTROBAN) 2 [...] Progress Notes (RADIO CT SCAN [facility]): RT Lillian, Tech 06/07/2018 10:04 AM [...] RT Lillian June 07, 2018 9:54 AM [facility] Vital Signs Date Time Vital Sign Value Performing Clinician Facility 02-24-2024 14:13040 Body height 154.94 cm [facility] 02-24-2024 14:130400 Body mass index (BMI) [Ratio] 33.1 kg/m2 [facility] 02-24-2024 14:13040 Body temperature 96 [degF] [facility] 02-24-2024 14:13040 Body weight 79.6 kg [facility] 02-24-2024 14:130400 Diastolic blood pressure 84 mm[Hg] [facility] 02-24-2024 14:130400 Heart rate 66 /min [facility] 02-24-2024 14:130400 Systolic blood pressure 159 mm[Hg] [facility] 12-20-2023 15:35-0400 Body height 154.94 cm [facility] 12-20-2023 15:35-0400 Body mass index (BMI) [Ratio] 33.8 kg/m2 [facility] 12-20-2023 15:35-0400 Body weight 81.19 kg [facility] 12-20-2023 15:35-0400 Diastolic blood pressure 80 mm[Hg] [facility] 12-20-2023 15:35-0400 Heart rate 78 /min [facility] 12-20-2023 15:35-0400 Respiratory rate 12 /min [facility] 12-20-2023 15:35-0400 Systolic blood pressure 134 mm[Hg] [facility] 04-29-2023 09:00-0500 Body height 154.94 cm [facility] [address] [facility] Other 04-29-2023 09:00-0500 Body mass index (BMI) [Ratio] 33.14 kg/m2 Robert Ball Other [facility] Other 04-29-2023 09:00-0500 Body weight 79.56 kg Robert Ball Other [facility] Other 04-29-2023 09:00-0500 Diastolic blood pressure 89 mm[Hg] Robert Ball Other [facility] Other 04-29-2023 09:00-0500 Respiratory rate 12 /min Robert Ball Other [facility] Other 04-29-2023 09:00-0500 Systolic blood pressure 155 mm[Hg] Robert Ball Other [facility] Other 12-20-2022 13:45-0400 Body height 154.94 cm Robert Ball Other [facility] Other 12-20-2022 13:45-0400 Body mass index (BMI) [Ratio] 34.12 kg/m2 Robert Ball Other [facility] Other 12-20-2022 13:45-0400 Body weight 81.92 kg Robert Ball Other [facility] Other 12-20-2022 13:45-0400 Diastolic blood pressure 96 mm[Hg] Robert Ball Other [facility] Other 12-20-2022 13:45-0400 Respiratory rate 12 /min Robert Ball Other [facility] Other 12-20-2022 13:45-0400 Systolic blood pressure 179 mm[Hg] Robert Ball Other [facility] Other 08-04-2022 09:45-0400 Body height 154.94 cm Robert Ball Other [facility] Other 08-04-2022 09:45-0400 Body mass index (BMI) [Ratio] 33.33 kg/m2 Robert Ball Other [facility] Other 08-04-2022 09:45-0400 Body weight 80.02 kg Robert Ball Other [facility] Other 08-04-2022 09:45-0400 Diastolic blood pressure 77 mm[Hg] Robert Ball Other [facility] Other 08-04-2022 09:45-0400 Respiratory rate 12 /min Orbert Ball Other [facility] Other 08-04-2022 09:45-0400 Systolic blood pressure 128 mm[Hg] Robert Ball Other [facility] Other Encounters Encounter Date Encounter Type Care Provider Facility Start: 04-09-2024 End: 04-09-2024 ambulatory Miriam Barron MD Facility: [facility] Start: 02-24-2024 End: 02-24-2024 ambulatory [facility] Work Phone: Start: 02-24-2024 End: 02-24-2024 Patient encounter procedure [facility] Physician [facility] Work Phone: Start: 02-22-2024 Non-patient / Non-visit [facility] Physician [facility] Work Phone: Start: 12-27-2023 Non-patient / Non-visit [facility] Physician [facility] Work Phone: Start: 12-20-2023 Patient encounter status [facility] Start: 12-20-2023 End: 12-20-2023 ambulatory [facility] Work Phone: Start: 12-20-2023 End: 12-20-2023 Patient encounter procedure [facility] Physician [facility] Work Phone: Start: 09-26-2023 End: 09-26-2023 ambulatory Miriam Barron MD Facility: [facility] Start: 08-15-2023 End: 08-15-2023 ambulatory Miriam Barron MD Facility: [facility] Start: 08-08-2023 End: 08-08-2023 ambulatory Miriam Barron MD Facility:[facility] Start: 06-27-2023 End: 06-27-2023 ambulatory Miriam Barron MD Facility:[facility] Start: 06-06-2023 End: 06-06-2023 ambulatory Miriam Barron MD Facility:[facility] Start: 06-01-2023 End: 06-01-2023 ambulatory Robert Cruz Other [facility] Other Start: 06-01-2023 Telephone encounter Robert Ball [facility] Start: 05-23-2023 End: 05-23-2023 ambulatory Miriam Barron MD Facility: [facility] Start: 05-13-2023 End: 05-13-2023 ambulatory Robert Ball Other [facility] Other Start: 05-13-2023 Telephone encounter Robert Ball [facility] Start: 05-09-2023 End: 05-09-2023 ambulatory Robert Ball Other [facility] Other Start: 05-09-2023 Telephone encounter Robert Ball [facility] Start: 05-04-2023 End: 05-04-2023 ambulatory Robert Ball Other [facility] Other Start: 05-04-2023 Telephone encounter Robert Ball [facility] Start: 05-02-2023 End: 05-02-2023 ambulatory Robert Ball Other [facility] Other Start: 05-02-2023 Telephone encounter Robert Ball [facility] Start: 04-29-2023 End: 04-29-2023 ambulatory Robert Ball Other [facility] Other Start: 04-29-2023 Office outpatient vi sit 15 minutes Robert Ball [facility] Start: 04-04-2023 End: 04-04-2023 ambulatory Robert Ball Other [facility] Other Start: 04-04-2023 Telephone encounter Robert Ball [facility] Start: 01-24-2023 End: 01-24-2023 ambulatory Robert Ball Other [facility] Other Start: 01-24-2023 Telephone encounter Robert Ball [facility] Start: 12-23-2022 End: 12-23-2022 ambulatory Robert Ball Other [facility] Other Start: 12-23-2022 Telephone encounter Robert Ball [facility] Start: 12-20-2022 End: 12-20-2022 ambulatory Robert Ball Other [facility] Other Start: 12-20-2022 Office outpatient vi sit 15 minutes Robert Ball [facility] Start: 12-17-2022 End: 12-17-2022 ambulatory Robert Ball Other [facility] Other Start: 12-17-2022 Telephone encounter Robert Ball [facility] Start: 11-08-2022 End: 11-08-2022 ambulatory Robert Cruz Other [facility] Other Start: 11-08-2022 Telephone encounter Robert Ball [facility] Start: 10-22-2022 End: 10-22-2022 ambulatory Robert Cruz Other [facility] Other Start: 10-22-2022 Telephone encounter Robert Ball [facility] Start: 10-13-2022 End: 10-13-2022 ambulatory Robert Cruz Other [facility] Other Start: 10-13-2022 Telephone encounter Robert Ball [facility] Start: 09-27-2022 End: 09-27-2022 ambulatory Robert Ball Other [facility] Other Start: 09-27-2022 Telephone encounter Robert Ball [facility] Start: 08-23-2022 End: 08-24-[address] RISHI PARKER Facility: Start: 08-04-2022 End: 08-04-2022 ambulatory Robert Cruz Other [facility] Other Start: 08-04-2022 Office outpatient vi sit 25 minutes Robert Ball [facility] Start: 04-03-2022 Encounter for genera l adult medical examination without abnormal findings DR ROBERT CRUZ [facility] Start: 03-30-2022 End: 03-31-2022 ambulatory [...] 07-03-2018 Patient encounter procedure [facility] Start: 06-20-2018 End: 06-20-2018 Evaluation and management of inpatient Count includes the [facility] Procedures Date Procedure Procedure Detail Performing Clinician Start: 06-07-2018 Antibody screen JENNA RI CCHETTI Plan of Treatment Date Care Activity Detail Author Comprehensive metabo lic 2000 panel - Serum or Plasma [facility] enter MG Breast - bilateral Diagnostic [facility] Payers Date Payer Category Payer Unknown 2022 [employer] [place] [employer] [facility] [id number] 2019 Unknown [id number] 1960 Self-pay [id number] 1960 Unknown [id number] .16.84 [id number] 1959 Unknown [id number] .16.84 0.1.181005.3.579.2.593 1959 Unknown [id number] .16.84 0.1.600201.3.579.2.593 1959 Unknown [id number] .16.84 0.1.821016.3.579.2.593 1959 Unknown [id number] 2.16.84 0.1.571653.3.579.2.593 1959 Unknown [id number] 2.16.84 0.1.878137.3.579.2.593 1959 Unknown [id number] 2.16. 840.1.977026.3.579.2.196 1959 Unknown [id number] 2.16. 840.1.336926.3.579.2.196 1959 Unknown [id number] 2.16. 840.1.173727.3.579.2.196 1959 Unknown [id number] 2.16. 840.1.287035.3.579.2.196 1959 Unknown [id number] 2.16. 840.1.525133.3.579.2.196 1959 Unknown [id number] 2.16. 840.1.938281.3.579.2.196 1959 Unknown [id number] 2.16. 840.1.089649.3.579.2.196 Unknown [id number] 2.16.84 0.1.839444.3.579.2.593 Unknown [facility] [id number] Social History Date Type Detail Facility Sex Assigned At [facility] Other Start: 1960 Sex Assigned At Female [facility] Clinical Notes 08-04-2022 to 06-01-2023 Note [...] and without status migrainosus (ICD-10 - G43.719) [facility] Other 01-15-2024 Evaluation note* Encounter Date Diagnosis Assessment Notes Treatment Notes Treatment Clinical Notes Apr, Intractable chronic migraine without aura and without status migrainosus (ICD-10 - G43.719) [facility] Other 01-08-2024 Evaluation note* Encounter Date Diagnosis Assessment Notes Treatment Notes Treatment Clinical Notes Apr, Intractable chronic migraine without aura and without status migrainosus (ICD-10 - G43.719) [facility] Other 01-05-2024 Evaluation note* Encounter Date Diagnosis [...] Begin Amitriptyline Stop Tizanidine. 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 May want to cut back on Zanaflex. [...] Pain in left shoulder (ICD-10 - M25.512) [facility] Other 06-30-2023 Evaluation note* Encounter Date Diagnosis Assessment Notes Treatment Notes Treatment Clinical Notes Sep, Type 2 diabetes mellitus with hyperglycemia, without long-term current use of insulin (ICD-10 - E11.65) [facility] Other 06-05-2023 Evaluation note* Encounter Date Diagnosis Assessment Notes Treatment Notes Treatment Clinical Notes Sep, Candidiasis, intertriginous (ICD-10 - B37.2) [facility] Other 04-12-2023 Evaluation note* Encounter Date Diagnosis [...] use, the patient reduces the risk for NV, CVA, HTN, cardiac dysrhythmias and sudden cardiac [...] Jul, Other specified hypothyroidism (ICD-10 - E03.8) [facility] Other Evaluation noteNo assessment information available [facility] Work Phone: Evaluation note* Diagnosis Onset Date Resolution Status Cervical pain acute Cervical spondylosis acute Cervical pain acute Cervical spondylosis acute Painful lumpy right breast a cute [facility] Work Phone: History general Narrative - [...] LEFT HEART CATHETERIZATION 2015 Hospitalization History SEE [employer] Other History general Narrative - Reported* Type [...] Right knee arthroscopy 10/2022 Hospitalization History SEE [employer] Other Reason for referral (narrative)* Reason Evaluation of right knee pain Diagnosis 1 Strain of right knee , subsequent encounter (U55.292A) Referral Organization [facility] [place] Referring Provider First Name Robert Referring Provider Last Name [place] Referring Provider Specialty Internal Me dicine Referred Provider Rishi Parker Jr Referred Provider Specialty Orthopedic S urgery Referral Priority Routine [facility] Other Reason for referral (narrative)* Reason Referral for neck pa in Diagnosis 1 Cervicalgia (M54.2) Diagnosis 2 Cervical spondylosis (M47.812) Referral Organization [facility] [place] Referring Provider First Name Robert Referring Provider Last Name [place] Referring Provider Specialty Internal Me dicine Referred Organization [facility] Referred Address [address], [place],[address] Referred Provider Specialty Pain Medicin e Referral Priority Routine General Notes Patient has hx of ce rvical discectomy and fusion and presented w/ persistent neck pain, which radiated upwards causing a headache. She is being referred for treatment with the pain clinic. Clinical Notes Include MRI [facility] Other Summary Purpose Family History No Family [...] section and content) DATE CREATED AUTHOR 06/20/2018 [facility] DATE CREATED AUTHOR AUTHOR'S ORGANIZ ATION 07/04/2018 [facility] DATE CREATED AUTHOR AUTHOR'S ORGANIZ ATION 09/18/2020 [facility] DATE CREATED AUTHOR AUTHOR'S ORGANIZ ATION 08/27/2022 [facility] DATE CREATED AUTHOR AUTHOR'S ORGANIZ ATION 04/18/2024 [facility] REASON FOR VISIT (unrecogniz ed section and [...] BE BASED ON THE PRIMARY CLINICAL RECORDS. [facility] [employer] [facility]. provides no warranty or guarantee of the accuracy or completeness of information in this document.
[2024-06-01] MEDS: LIDOCAINE HCL 10 ML, SODIUM BICARBONATE 1 MEQ INJ (11:10)
--- NOTE | 2024-06-01 11:22 | FL_ITS ---
The [address] [address] Patient Name: CARROLL HARDEN MRN: [id number] date: 1960 Sex: F Assigned Patient Location: CT Current Patient Location: LAB Accession/Order Number: [id number] Exam Date: 06/01/2024 10:35 Report Date: 06/01/2024 11:34 At the request of: LAMAR AYALA Procedure: FL guided needle placement EXAMINATION: FL shoulder inj RT, FL guided needle placement HISTORY: Acute Pain Right Shoulder COMPARISON: No relevant comparison available. TECHNIQUE: An arthrogram was performed under fluoroscopic guidance using non-ionic contrast material in the usual sterile manner after obtaining informed consent. Standard level fluoroscopic mode of operation utilized. 25 seconds of fluoroscopy. 2 images FINDINGS: JOINT: Right shoulder NEEDLE: 25 gauge, 3.5 spinal needle. MEDICATION: 2cc buffered 1% lidocaine for subcutaneous anesthesia . TECHNIQUE: Anterior approach with prior localization. A single stick was successful in gaining access to the joint space. CLINICAL: Approximately 0.5 cc of viscous clear fluid was obtained consistent with normal appearing synovial fluid COMPLICATIONS: None. FL/FL guided needle placement IMPRESSION: Technically successful right shoulder aspiration. Electronically authenticated by: WARREN FAYE Date: 06/01/2024 11:34
--- NOTE | 2024-06-01 11:22 | FL_ITS ---
The [address] [address] Patient Name: CARROLL HARDEN MRN: [id number] date: 1960 Sex: F Assigned Patient Location: PA Current Patient Location: LAB Accession/Order Number: [id number] Exam Date: 06/01/2024 10:35 Report Date: 06/01/2024 11:34 At the request of: LAMAR AYALA Procedure: FL shoulder inj RT EXAMINATION: FL shoulder inj RT, FL guided needle placement HISTORY: Acute Pain Right Shoulder COMPARISON: No relevant comparison available. TECHNIQUE: An arthrogram was performed under fluoroscopic guidance using non-ionic contrast material in the usual sterile manner after obtaining informed consent. Standard level fluoroscopic mode of operation utilized. 25 seconds of fluoroscopy. 2 images FINDINGS: JOINT: Right shoulder NEEDLE: 25 gauge, 3.5 spinal needle. MEDICATION: 2cc buffered 1% lidocaine for subcutaneous anesthesia . TECHNIQUE: Anterior approach with prior localization. A single stick was successful in gaining access to the joint space. CLINICAL: Approximately 0.5 cc of viscous clear fluid was obtained consistent with normal appearing synovial fluid COMPLICATIONS: None. FL/FL shoulder inj RT IMPRESSION: Technically successful right shoulder aspiration. Electronically authenticated by: WARREN FAYE Date: 06/01/2024 11:34
--- NOTE | 2024-06-01 11:30 | SUR.PREOP ---
05/31/24 Pt instructed on date, time,prep, and procedure.
== END 2024-06-01 11:20 | disposition home or self-care (01) ==
LOC: FL 10:19
PROVIDERS: Radiology Diagnostic Radiology; PCP Internal Medicine; Visit Provider Orthopaedic Surgery
DX: M25.511 Pain in right shoulder (principal)
CPT/HCPCS: 20610; 36415; 77002; 87070

== ENCOUNTER 2024-06-27 11:33 | Outpatient (OUT) | payer OTHER, SELFPAY ==
--- NOTE | 2024-06-27 | ECG_ITS ---
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 Measurements Intervals [place] Rate: 59 P: 61 MO: 173 QRS: 63 QRSD: 89 T: 68 QT: 439 QTc: 437 Interpretive Statements SINUS BRADYCARDIA Otherwise normal ECG Compared to ECG 12/17/2022 08:03:48 No significant changes Electronically Signed On 06-28-2024 6:28:46 EST by RISHI SPENCE M.D.
--- OUTSIDE RECORDS SUMMARY | 2024-06-27 11:58 | XMS_ITS | CCD ---
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 Role Phone REECE LENTZIC New Admitting Unavailable SUN JENNA T Attending Unavailable LISANDRO BLAKE Consulting [...] Unavailable BALL, DR NINO Primary Care Unavailable Gieditis , Miriam Stephenson Attending Unavailable Giedraitis , Jacobrius Sachin Attending Unavailable Giedraitis , Andrius Sachin Attending Unavailable Gieditis , Andrius Sachin Attending Unavailable Giedraitis , Andrius Sachin Attending Unavailable Giedraitis , Andrius Sachin Attending Unavailable Giedraitis , Andvalentine Stephenson Attending Unavailable DEE, Raisa T Attending Unavailable Allergies Allergy Classification Reported Allergen(s) Allergy Type Date of Onset Reaction(s) Facility (3 sources) Contrast media; Translations: [CONTRAST DYE] Propensity to adverse reactions to drug (disorder) 09-30-19 11 [facility] Repository (2 sources) HYDROmorphone; Translations: [HYDROMORPHONE (BULK)] Drug Allergy 08-17-19 17 [facility] Repository (20 sources) Latex; Translations: [LATEX] Propensity to adverse reactions to drug (disorder) 09-30-19 11 Unknown, Unknown Reaction [facility] Repository (2 sources) Meperidine; Translations: [MEPERIDINE (PF)] Drug Allergy 09-30-19 11 [facility] Repository (2 sources) Povidone-Iodine; Translations: [POVIDONE-IODINE] Drug Allergy 10-21-19 17 [facility] Repository (2 sources) SUMAtriptan; Translations: [SUMATRIPTAN SUCCINATE] Drug Allergy 09-30-19 11 [facility] Repository (2 sources) INFLUENZA VACCINE TRI-SP 09-10; Translations: [INFLUENZA VACCINE TRI-SP 09-10] Propensity to adverse reactions to drug (disorder) 09-30-19 11 [facility] Repository (3 sources) DHE; Translations: [DHE] Propensity to adverse reactions to drug (disorder) 10-24-19 13 [facility] Repository (20 sources) HYDROmorphone Drug Allergy 12-20-19 24 Unknown, Unknown Reaction [facility] (20 sources) Iodine; Translations: [iodine] Drug Allergy 10-24-19 13 Unknown, Unknown Reaction [facility] Repository (20 sources) Meperidine Drug Allergy 12-20-19 24 Unknown, Unknown Reaction [facility] (20 sources) SUMAtriptan Drug Allergy 12-20-19 24 Unknown, Unknown Reaction [facility] (20 sources) Fluad Drug allergy 12-20-19 24 Unknown, Unknown Reaction [facility] (17 sources) DHEA Drug allergy Unknown [employer] Other (2 sources) HYDROmorphone; Translations: [Dilaudid] Drug Allergy 10-24-19 13 [facility] Repository (1 source) Meperidine Drug Allergy 10-24-19 13 [facility] Repository (2 sources) Plasmin; Translations: [Imitrex] Drug Allergy 10-24-19 13 [facility] Repository (12 sources) influenza A virus (H1N1) antigen / influenza A virus (H3N2) antigen / influenza B virus antigen Drug Allergy 11-21-19 14 Comment:FLU VACCINE [facility] [employer] Other (12 sources) Contraindication to Flu Injection Propensity to adverse reactions 03-07-20 14 Comment:advers e rxn/side effects [facility] [employer] Other (3 sources) patient allergy list reviewed by nurse or physicia Propensity to adverse reactions 12-22-19 Comment:Done [employer] Other (3 sources) Calcium Drug Allergy 12-20-19 24 Unknown Reaction [facility] (3 sources) Calcium Carbonate Drug Allergy 12-20-19 24 Unknown Reaction [facility] (3 sources) prasterone (DHEA) Allergy to substance 12-20-19 Unknown Reaction [facility] (3 sources) Fluad Quadrivalent Allergy to substance 04-29-19 Comment:FLU VACCINE [facility] Comment on above: Onset Date: 11/21/19 14 (1 source) Meperidine; Translations: [Demerol HCl] Drug Allergy [facility] Repository (1 source) flu vaccines; Translations: [flu vaccines] Propensity to adverse reactions (disorder) [facility] Repository Medications Current Medications Medication Drug Class(es) Dates Sig (Normalized) Sig (Original) atenolol 50 mg oral tablet (20 sources) beta-Adrenergic Maria Esther Start: 03-28-2024 take 1 tablet by mouth once daily Atenolol 50 mg tablet Active 0 .ROUTE .COMPLEX 90 March 28, 2024 7:00am TAKE 1 TABLET BY MOUTH ONCE DAILY Start: 12-20-2023 End: 03-28-2024 take 1 tablet by mouth once daily Atenolol 50 mg tablet Discontinued 50 MG PO Daily December 19, 2023 11:00pm March 28, 2024 7:00am Start: 08-04-2022 take 1 tablet by fredrick th every twenty-four hours Atenolol 50 MG 1 tablet Orally Once a day for 90 days Jul, Active citalopram 40 mg oral tablet (20 sources) Serotonin Reuptake Inhibitor Start: 10-18-2023 End: 10-18-2023 take 1 tablet by mouth once daily Citalopram 40 mg tablet Active 40 MG PO Daily 90 October 18, 2023 7:37am Start: 10-22-2022 take 1 tablet by fredrick every twenty-four hours Citalopram Hydrobromide 40 MG 1 tablet at bedtime Orally Once a day for 90 days Sep, Active clonazePAM 1 mg oral tablet (20 sources) Benzodiazepine Start: 12-20-2023 End: 12-27-2023 take 1.5 mg by mouth once daily at bedtime Clonazepam (Klonopin) 1 mg tablet Active 1.5 MG PO Daily at bedtime 45 December 27, 2023 12:03pm Start: 06-13-2023 End: 12-20-2023 take 3 tablets by mouth once daily 30 minutes before bedtime Clonazepam 0.5 mg tablet Discontinued 1.5 MG PO Daily at bedtime 270 June 13, 2023 12:00am December 20, 2023 3:16pm administer 30 minutes before bedtime Start: 06-13-2023 End: 12-20-2023 take 1.5 mg by mouth once daily 30 minutes before bedtime Clonazepam Discontinued 1.5 MG PO Daily at bedtime 270 June 13, 2023 1:00am December 20, 2023 4:16pm administer 30 minutes before bedtime Start: 06-01-2023 take 3 tablets by mo ut once [...] Start: 09-30-2022 take 3 tablets by mo [facility] at bedtime clonazePAM 0.5 MG TAKE 3 TABLETS BY MOUTH AT BEDTIME for 30 days Sep, Active etodolac 500 mg oral tablet (8 sources) Nonsteroidal Anti-inflammatory Drug Start: 12-20-2023 End: 04-06-2024 take 1 tablet by mouth twice daily as needed for headache Etodolac 500 mg tablet Active 500 MG PO Twice daily as needed for headache 60 April 06, 2024 10:06am fluconazole 100 mg oral tablet (16 sources) Azole Antifungal Start: 09-14-2022 take 1 tablet by mouth every twenty-four hours Fluconazole 100 MG 1 tablet Orally daily for 7 days August, Active glimepiride 4 mg oral tablet (20 sources) Sulfonylurea Start: 03-28-2024 take 1 tablet by mouth once daily at breakfast Glimepiride 4 mg tablet Active 0 .ROUTE .COMPLEX March 28, 2024 7:00am TAKE 1 TABLET BY MOUTH DAILY WITH BREAKFAST OR FIRST MAIN MEAL OF THE DAY Start: 12-20-2023 End: 03-28-2024 Glimepiride 4 mg tablet Disc ontinued 1 TAB PO Daily December 19, 2023 11:00pm March 28, 2024 7:00am [employer] tablet with breakfast or the first [...] Active levothyroxine sodium 0.125 mg oral tablet (20 sources) l-Thyroxine Start: 03-28-2024 take 1 tablet by mouth once daily in the morning Levothyroxine 125 mcg tablet Active 0 .ROUTE .COMPLEX March 28, 2024 7:00am TAKE 1 TABLET BY MOUTH ONCE DAILY IN THE MORNING ON AN EMPTY STOMACH Start: 12-20-2023 End: 03-28-2024 take 1 capsule by mouth once daily Levothyroxine 125 mcg capsule Discontinued 125 MCG PO Daily December 19, 2023 11:00pm March 28, 2024 7:00am Start: 07-26-2022 take 1 tablet by fredrick [...] MG PO Daily December 20, 2023 12:00am Magnesium Aspart,Citrate,Oxide 400 mg magnesium capsule (1 source) Start: 12-20-2023 take 1 capsule by mouth once daily Magnesium Aspart,Citrate,Oxide 400 mg magnesium capsule Active 400 MG PO Daily December 19, 2023 11:00pm metFORMIN hydrochloride 500 mg oral tablet (19 sources) Biguanide Start: 03-28-2024 take 1 tablet by mouth twice daily Metformin 500 mg tablet Active 0 .ROUTE .COMPLEX 180 March 28, 2024 7:00am TAKE 1 TABLET BY MOUTH WITH A MEAL TWICE DAILY Start: 12-20-2023 End: 03-28-2024 take 1 tablet by mouth twice daily Metformin 500 mg tablet Discontinued MG PO December 19, 2023 11:00pm March 28, 2024 7:00am [employer] tablet with a meal Orally two times daily; Note: Source Status: Taking; Refills: 3; Provider: Hamilton Jones Start: 10-13-2022 take 1 tablet by fredrick th twice daily metFORMIN HCl 500 MG 1 tablet with a meal Orally two times daily for 90 days Sep, Active olmesartan medoxomil 20 mg oral tablet (15 sources) Angiotensin 2 Receptor Maria Esther Start: 03-28-2024 take 1 tablet by mouth once daily Olmesartan 20 mg tablet Active 0 .ROUTE .COMPLEX 90 March 28, 2024 8:29pm TAKE 1 TABLET BY MOUTH ONCE DAILY Start: 03-28-2024 End: 03-28-2024 take 1 tablet by mouth once daily Olmesartan 20 mg tablet Discontinued 20 MG PO Daily March 28, 2024 12:00am March 28, 2024 8:29pm Start: 12-20-2023 End: 12-20-2023 take 1 tablet by mouth once daily Olmesartan 20 mg tablet Discontinued 20 MG PO Daily December 19, 2023 11:00pm December 20, 2023 3:17pm Start: 12-23-2022 take 1 tablet by fredrick th every twenty-four hours Olmesartan Medoxomil 20 MG 1 tablet Orally Once a day for 30 days Nov, Active pravastatin sodium 20 mg oral tablet (20 sources) HMG-CoA Reductase Inhibitor Start: 03-28-2024 take 1 tablet by mouth once daily Pravastatin 20 mg tablet Active 0 .ROUTE .COMPLEX 90 March 28, 2024 7:01am TAKE 1 TABLET BY MOUTH ONCE DAILY Start: 12-20-2023 End: 03-28-2024 take 1 tablet by mouth once daily Pravastatin 40 mg tablet Discontinued 40 MG PO Daily December 19, 2023 11:00pm March 28, 2024 7:02am Start: 08-04-2022 take 1 tablet by fredrick [...] Apr, Active rizatriptan 10 mg oral tablet (10 sources) Serotonin-1b and Serotonin-1d Receptor Agonist Start: 12-20-2023 take 3 tablets by mouth every twenty-four hours as needed Rizatriptan (Maxalt) 10 mg tablet Active 10 MG PO EVERY 2-4 HOURS as needed December 19, 2023 11:00pm do not exceed 3 doses per 24 hrs Start: 11-04-2022 take 1 tablet by fredrick th every two hours as needed for headache Maxalt-LINE REPAIRER 10 MG 1 tablet Orally PRN headache, [...] days Active tiZANidine 4 mg oral tablet (20 sources) Central alpha-2 Adrenergic Agonist Start: 06-15-2024 take 1 tablet by mouth twice daily Tizanidine 4 mg tablet Active 0 .ROUTE .COMPLEX 180 June 15, 2024 8:55am TAKE 1 TABLET BY MOUTH TWICE A DAY FOR MUSCLE SPASTICITY Start: 02-29-2024 End: 06-15-2024 take 1 capsule by mouth twice daily Tizanidine 4 mg capsule Discontinued 4 MG PO Twice daily 180 90 February 29, 2024 4:11pm June 15, 2024 8:55am Start: 12-16-2023 End: 02-29-2024 take 0.5-1 tablets by mouth once daily at bedtime Tizanidine 4 mg capsule Discontinued 4 MG PO Daily at bedtime as needed for muscle spasticity 90 December 16, 2023 11:52am February 29, 2024 4:11pm take 1/2 to 1 tablet at QHS Start: 06-17-2023 End: 12-16-2023 take 0.5 tablet by mouth once daily at bedtime Tizanidine 4 mg capsule Discontinued 4 MG PO Daily at bedtime as needed for muscle spasticity June 17, 2023 12:40pm December 16, 2023 12:19pm take 1/2 tablet at QHS take 0.5-1 tablets b y mouth once daily at bedtime tiZANidine HCl 4 MG TAKE 1/2 TO 1 TABLET BY MOUTH EVERY DAY AT BEDTIME for 90 Active Completed/Discontinued Medications Medication Drug Class(es) Dates Sig (Normalized) Sig (Original) amitriptyline hydrochloride 10 mg oral tablet (10 sources) Tricyclic Antidepressant Start: 12-20-2023 End: 12-20-2023 take 1 tablet by mouth once daily at bedtime Amitriptyline 10 mg tablet Discontinued 10 MG PO Daily at bedtime December 19, 2023 11:00pm December 20, 2023 2:47pm 1 TO 2 Start: 04-29-2023 take 1-2 [...] Jul, Not-Taking/PRN naratriptan 2.5 mg oral tablet (10 sources) Serotonin-1b and Serotonin-1d Receptor Agonist Start: 12-20-2023 End: 12-20-2023 take 1 tablet by mouth every four hours as needed for headache Naratriptan 2.5 mg tablet Discontinued 2.5 MG PO Every 4 hours as needed for migraine headache December 19, 2023 11:00pm December 20, 2023 3:16pm Start: 04-29-2023 Naratriptan HC l 2.5 MG 1 tablet Orally Once a day PRN headache, may repeat after 2 hours for 30 days Apr, Active Problems Active Problems Problem Classification Problem Date Documented Date Episodic/Chronic Anxiety disorders (20 sources) Generalized anxiety disorder; Translations: [Generalized anxiety [...] skin and nail Episodic Nonmalignant breast conditions (20 sources) Lump in left breast; Translations: [Unspecified lump in the left breast, unspecified quadrant] 02-24-2024 Episodic Osteoarthritis (2 sources) Primary osteoarthritis, left shoulder; Translations: [Primary osteoarthritis, right shoulder] Onset: 9 Chronic Other connective tissue disease (1 source) History of cervical spine fusion; Translations: [Arthrodesis status] 02-24-2024 Episodic Other nervous system disorders (1 source) Dysarthria [...] Spondylosis; intervertebral disc disorders; other back problems (6 sources) Cervicalgia; Translations: [Neck pain] Episodic Sprains [...] Test Name Value Interpretation Reference Range Facility No Panel Informationon 06-01 Miscellaneous Test COMMENT . [facility] Comment on above: Test Ordered: [id number] Aerobic Cult, Extended IncubAerobic Cult, Extended Incub Note: CB Final report Reference Range: .Result 1 Comment CB Reference Range: .Staphylococcus epidermidisRecovered from broth only.Based on resistance to oxacillin this isolate would beresistant to all currently available beta-lactamantimicrobial agents, with the exception of the newercephalosporins with anti-MRSA activity, such as CeftarolineResult 2 Note: CB Not applicable Reference Range: .Antimicrobial Susceptibility Comment CB Reference Range: . S = Susceptible; I = Intermediate; R = Resistant P = Positive; N = Negative MICS are expressed in micrograms per mL Antibiotic RSLT#1 RSLT#2 RSLT#3 RSLT#4Ciprofloxacin SErythromycin RGentamicin SLevofloxacin SLinezolid SOxacillin RPenicillin RRifampin STetracycline STrimethoprim/Sulfa SVancomycin SPerformed at: - [facility] [address] [id number] Director: Noam Haskins PhD, Phone: [phone] Basophils Auto (Bld) [#/Vol] on 05-31-2024 Basophils (Bld) [#/Vol] Automated basophil count 0.0-0.1 [facility] Basophils/100 WBC Auto (Bld) on 05-31-2024 Basophils/100 WBC (Bld) Automated basophil % 0.2-2.0 [facility] Eosinophils/100 WBC Auto (Bl d)on 05-31-2024 Eosinophils/100 WBC (Bld) Automated eosinophil % 0.9-7.0 [facility] Erythrocyte distribution wid th Auto (RBC) [Ratio]on 05-31-2024 Erythrocyte distribution width (RBC) [Ratio] Erythrocyte distribution width [Ratio] by Automated count 11.0-15.0 [facility] Hematocrit Auto (Bld) [Volum e fraction]on 05-31-2024 Hematocrit (Bld) [Volume fraction] Hematocrit [Volume Fraction] of Blood by Automated count 36.0-48.0 [facility] Hemoglobin [Mass/volume] in Bloodon 05-31-2024 Hemoglobin (Bld) [Mass/Vol] Hemoglobin [Mass/volume] in Blood 12.0-16.0 [facility] Laboratory - Hematology and Cell countson 05-31-2024 ESR (Bld) [Velocity] 7 mm/h <=30 [facility] Immature granulocytes/100 WBC (Bld) 0.2 % 0.0-0.5 [facility] Leukocytes [#/volume] correc chip for nucleated erythrocytes in Blood by Automated counon 05-31-2024 WBC corrected for nucl RBC Auto (Bld) [#/Vol] Leukocytes [#/volume] corrected for nucleated erythrocytes in Blood by Automated coun 4.0-11.0 [facility] Lymphocytes Auto (Bld) [#/Vo l]on 05-31-2024 Lymphocytes (Bld) [#/Vol] Lymphocytes [#/volume] in Blood by Automated count 1.2-3.8 [facility] Lymphocytes/100 WBC Auto (Bl d)on 05-31-2024 Lymphocytes/100 WBC (Bld) Lymphocytes/100 leukocytes in Blood by Automated count 20.5-60.0 [facility] MCH Auto (RBC) [Entitic mass ]on 05-31-2024 MCH (RBC) [Entitic mass] MCH [Entitic mass] by Automated count 26.7-34.0 [facility] MCHC Auto (RBC) [Mass/Vol]on 05-31-2024 MCHC (RBC) [Mass/Vol] MCHC [Mass/volume] by Automated count 29.9-35.2 [facility] MCV Auto (RBC) [Entitic vol] on 05-31-2024 MCV (RBC) [Entitic vol] MCV [Entitic volume] by Automated count 81.0-99.0 [facility] Monocytes Auto (Bld) [#/Vol] on 05-31-2024 Monocytes (Bld) [#/Vol] Automated blood monocyte count 0.3-0.8 [facility] Monocytes/100 WBC Auto (Bld) on 05-31-2024 Monocytes/100 WBC (Bld) Automated monocyte % 1.7-12.0 [facility] Neutrophils Auto (Bld) [#/Vo l]on 05-31-2024 Neutrophils (Bld) [#/Vol] Neutrophils [#/volume] in Blood by Automated count 1.4-6.5 [facility] Neutrophils/100 WBC Auto (Bl d)on 05-31-2024 Neutrophils/100 WBC (Bld) Automated neutrophil % 43.0-75.0 [facility] No Panel Informationon 05-31 C-Reactive Protein, Quantitative <0.50 mg/dL <=0.50 [facility] Eosinophils # (Auto) 0.1 10 3/uL 0.0-0.7 [facility] Immature Granulocyte # (Auto) 0.01 10 3/uL 0.00-0.03 [facility] Platelet mean volume Auto (B ld) [Entitic vol]on 05-31-2024 Platelet mean volume (Bld) [Entitic vol] Platelet mean volume [Entitic volume] in Blood by Automated count Low 9.5-13.5 [facility] Platelets Auto (Bld) [#/Vol] on 05-31-2024 Platelets (Bld) [#/Vol] Platelets [#/volume] in Blood by Automated count 150-450 [facility] RBC Auto (Bld) [#/Vol]on RBC (Bld) [#/Vol] Erythrocytes [#/volu me] in Blood by Automated count 4.20-5.40 [facility] Basophils Auto (Bld) [#/Vol] on 12-27-2023 Basophils (Bld) [#/Vol] 0.1 10 3/uL 0.0-0.1 [facility] Basophils/100 WBC Auto (Bld) on 12-27-2023 Basophils/100 WBC (Bld) 1.0 % 0.2-2.0 [facility] Cholesterol in LDL Calc [Mas s/Vol]on 12-27-2023 Cholesterol in LDL [Mass/Vol] 63.0 mg/dL [facility] Comment on above: <100 mg/dl [id number] 0-129 mg/dl NEAR OR ABOVE [id number] mg/dl BORDERLINE [id number] mg/dl HIGH>190 mg/dl VERY HIGH Cholesterol in VLDL Calc [Ma ss/Vol]on 12-27-2023 Cholesterol in VLDL [Mass/Vol] 45.8 mg/dL [facility] Eosinophils/100 WBC Auto (Bl d)on 12-27-2023 Eosinophils/100 WBC (Bld) 8.3 % High 0.9-7.0 [facility] Erythrocyte distribution wid th Auto (RBC) [Ratio]on 12-27-2023 Erythrocyte distribution width (RBC) [Ratio] 11.9 % 11.0-15.0 [facility] Estimated glomerular filtrat ion rate (GFR) non- Americanon 12-27-2023 GFR/1.73 sq M.predicted among non-blacks MDRD (S/P/Bld) [Vol rate/Area] 47 mL/min/{1.73_m2} Low >=60 [facility] Globulin Calc (S) [Mass/Vol] on 12-27-2023 Globulin (S) [Mass/Vol] 3.2 g/dL [facility] Glucose mean value [Mass/vol ume] in Blood Estimated from glycated hemoglobinon 12-27-2023 Average glucose Estimated from glycated hemoglobin (Bld) [Mass/Vol] 143 mg/dL [facility] Hematocrit Auto (Bld) [Volum e fraction]on 12-27-2023 Hematocrit (Bld) [Volume fraction] 39.7 % 36.0-48.0 [facility] Hemoglobin [Mass/volume] in Bloodon 12-27-2023 Hemoglobin (Bld) [Mass/Vol] 12.9 g/dL 12.0-16.0 [facility] Laboratory - Chemistry and C hemistry - challengeon 12-27-2023 Albumin [Mass/Vol] 3.7 g/dL 3.4-5.0 [facility] ALP [Catalytic activity/Vol] 61 U/L 46-116 [facility] ALT [Catalytic activity/Vol] 36 U/L 14-59 [facility] AST [Catalytic activity/Vol] 24 U/L 15-37 [facility] Bilirubin [Mass/Vol] 0.6 mg/dL 0.2-1.0 [facility] Calcium [Mass/Vol] 9.2 mg/dL 8.5-10.1 [facility] Chloride [Moles/Vol] 101 mmol/L 98-107 [facility] Cholesterol [Mass/Vol] 146 mg/dL <=200 [facility] Cholesterol in HDL [Mass/Vol] 38 mg/dL Low 40-60 [facility] Comment on above: > or =60 mg/dl - LOW CARDIOVASCULAR RISK<40 mg/dl - HIGH CARDIOVASCULAR RISK CO2 [Moles/Vol] 26.8 mmol/L 21.0-32.0 [facility] Creatinine [Mass/Vol] 1.17 mg/dL High 0.55-1.02 [facility] GFR/1.73 sq M.predicted MDRD (S/P/Bld) [Vol rate/Area] 56 mL/min/{1.73_m2} Low >=60 [facility] Glucose [Mass/Vol] 138 mg/dL High 74-106 [facility] Potassium [Moles/Vol] 4.5 mmol/L 3.5-5.1 [facility] Protein [Mass/Vol] 6.9 g/dL 6.4-8.2 [facility] Sodium [Moles/Vol] 138 mmol/L 136-145 [facility] Triglyceride [Mass/Vol] 229 mg/dL High <=150 [facility] TSH Qn 0.834 m[IU]/L 0.358-3.740 [facility] Urea nitrogen [Mass/Vol] 23.0 mg/dL High 7.0-18.0 [facility] Urea nitrogen/Creatinine [Mass ratio] 19.7 mg/mg [facility] Laboratory - Hematology and Cell countson 12-27-2023 HbA1c (Bld) [Mass fraction] 6.6 % High 4.5-6.2 [facility] Comment on above: ADA RECOMMENDED LIMI T 4.0 - 6.0ADA THERAPEUTIC TARGET < 7.0ACTION SUGGESTED> 7.0 Immature granulocytes/100 WBC (Bld) 0.4 % 0.0-0.5 [facility] Leukocytes [#/volume] correc chip for nucleated erythrocytes in Blood by Automated counon 12-27-2023 WBC corrected for nucl RBC Auto (Bld) [#/Vol] 5.2 10 3/uL 4.0-11.0 [facility] Lymphocytes Auto (Bld) [#/Vo l]on 12-27-2023 Lymphocytes (Bld) [#/Vol] 2.2 10 3/uL 1.2-3.8 [facility] Lymphocytes/100 WBC Auto (Bl d)on 12-27-2023 Lymphocytes/100 WBC (Bld) 42.1 % 20.5-60.0 [facility] MCH Auto (RBC) [Entitic mass ]on 12-27-2023 MCH (RBC) [Entitic mass] 28.5 pg 26.7-34.0 [facility] MCHC Auto (RBC) [Mass/Vol]on 12-27-2023 MCHC (RBC) [Mass/Vol] 32.5 g/dL 29.9-35.2 [facility] MCV Auto (RBC) [Entitic vol] on 12-27-2023 MCV (RBC) [Entitic vol] 87.8 fL 81.0-99.0 [facility] Monocytes Auto (Bld) [#/Vol] on 12-27-2023 Monocytes (Bld) [#/Vol] 0.3 10 3/uL 0.3-0.8 [facility] Monocytes/100 WBC Auto (Bld) on 12-27-2023 Monocytes/100 WBC (Bld) 6.4 % 1.7-12.0 [facility] Neutrophils Auto (Bld) [#/Vo l]on 12-27-2023 Neutrophils (Bld) [#/Vol] 2.2 10 3/uL 1.4-6.5 [facility] Neutrophils/100 WBC Auto (Bl d)on 12-27-2023 Neutrophils/100 WBC (Bld) 41.8 % Low 43.0-75.0 [facility] No Panel Informationon 12-26 Eosinophils # (Auto) 0.4 10 3/uL 0.0-0.7 [facility] Immature Granulocyte # (Auto) 0.02 10 3/uL 0.00-0.03 [facility] Platelet mean volume Auto (B ld) [Entitic vol]on 12-27-2023 Platelet mean volume (Bld) [Entitic vol] 9.6 fL 9.5-13.5 [facility] Platelets Auto (Bld) [#/Vol] on 12-27-2023 Platelets (Bld) [#/Vol] 190 10 3/uL 150-450 [facility] RBC Auto (Bld) [#/Vol]on RBC (Bld) [#/Vol] 4.52 10 6/uL 4.20-5.40 [facility] Serum or plasma albumin/glob ulin mass ratioon 12-27-2023 Albumin/Globulin [Mass ratio] 1.2 {ratio} [facility] Serum or plasma anion gap de terminationon 12-27-2023 Anion gap [Moles/Vol] 14.7 mmol/L Fi [facility] Serum or plasma total choles terol/high density lipoprotein (HDL) cholesterol mass desiree 12-27-2023 Cholesterol.total/Cho lesterol in HDL [Mass ratio] 3.8 {ratio} [facility] Comment on above: 3.3 - 4.4 LOW [...] BERNY CANO Date: 2022-08-24 07:19 Normal [facility] CBC AUTO DIFFon 03-30-2022 BASO # 0.0 103/ul Normal 0.0-0.1 [facility] Comment on above: Performed By: #### C BC #### [facility] [address] [address] [address] Rc Foster Basophils/100 WBC (Bld) 0.4 % Normal 0.2-2.0 [facility] Comment on above: Performed By: #### C BC #### [facility] [address] [address] [address] Rc Foster EO # 0.3 103/ul Normal 0.0-0.7 [facility] Comment on above: Performed By: #### C BC #### [facility] Laboratory [address] [address] [address] Rc Foster Eosinophils/100 WBC (Bld) 4.9 % Normal 0.9-7.0 [facility] Comment on above: Performed By: #### C BC #### [facility] [address] [address] [address] Rc Foster Erythrocyte distribution width (RBC) [Ratio] 12.2 % Normal 11.0-15.0 [facility] Comment on above: Performed By: #### C BC #### [facility] [address] [place] [address] Dr. Rc Foster Hematocrit (Bld) [Volume fraction] 39.8 % Normal 36.0-48.0 [facility] Comment on above: Performed By: #### C BC #### [facility] [address] [place] [address] Dr. Rc Foster Hemoglobin (Bld) [Mass/Vol] 13.1 g/dL Normal 12.0-16.0 [facility] Comment on above: Performed By: #### C BC #### [facility] [address] [place] [address] Dr. Rc Foster IG # 0.02 10e3/ul Normal 0.00-0.03 [facility] Comment on above: Performed By: #### C BC #### [facility] [address] [place] [address] Dr. Rc Foster IG % 0.4 % Normal 0.0-0.5 [facility] Comment on above: Performed By: #### C BC #### [facility] [address] [place] [address] Dr. Rc Foster LYMPH # 2.1 103/ul Normal 1.2-3.8 [facility] Comment on above: Performed By: #### C BC #### [facility] [address] [place] [address] Dr. Rc Foster Lymphocytes/100 WBC (Bld) 37.1 % Normal 20.5-60.0 [facility] Comment on above: Performed By: #### C BC #### [facility] [address] [place] [address] Dr. Rc Foster MANUAL DIFF REQ NO Normal [facility] Comment on above: Performed By: #### C BC #### [facility] [address] [place] [address] Dr. Rc Foster MCH (RBC) [Entitic mass] 28.7 pg Normal 26.7-34.0 [facility] Comment on above: Performed By: #### C BC #### [facility] [address] [place] [address] Dr. Rc Foster MCHC (RBC) [Mass/Vol] 32.9 g/dL Normal 29.9-35.2 [facility] Comment on above: Performed By: #### C BC #### [facility] [address] [place] [address] Dr. Rc Foster MCV (RBC) [Entitic vol] 87.1 fL Normal 81.0-99.0 [facility] Comment on above: Performed By: #### C BC #### [facility] [address] [address] [address] Rc Foster MONO # 0.4 103/ul Normal 0.3-0.8 [facility] Comment on above: Performed By: #### C BC #### [facility] [address] [place] [address] Dr. Rc Foster Monocytes/100 WBC (Bld) 6.7 % Normal 1.7-12.0 [facility] Comment on above: Performed By: #### C BC #### [facility] [address] [place] [address] Dr. Rc Foster NEUT # 2.9 103/ul Normal 1.4-6.5 [facility] Comment on above: Performed By: #### C BC #### [facility] [address] [place] [address] Dr. Rc Foster Neutrophils/100 WBC (Bld) 50.5 % Normal 43.0-75.0 [facility] Comment on above: Performed By: #### C BC #### [facility] [address] [place] [address] Dr. Rc Foster Platelet mean volume (Bld) [Entitic vol] 9.7 fL Normal 9.5-13.5 [facility] Comment on above: Performed By: #### C BC #### [facility] [address] [place] [address] Dr. Rc Foster PLT 189 103/ul Normal 150-450 [facility] Comment on above: Performed By: #### C BC #### [facility] [address] [place] [address] Dr. Rc Foster RBC 4.57 106/ul Normal 4.20-5.40 [facility] Comment on above: Performed By: #### C BC #### [facility] [address] [address] [address] Rc Foster WBC 5.7 103/ul Normal 4.0-11.0 [facility] Comment on above: Performed By: #### C BC #### [facility] [address] [address] [address] Rc Foster GLYCOHEMOGLOBIN A1Con 2021 ADA RECOMMENDATION SEE BELOW Normal [facility] Comment on above: Result Comment: ADA RECOMMENDED LIMIT 4.0 - 6.0 ADA THERAPEUTIC TARGET < 7.0 ACTION SUGGESTED > 7.0 Performed By: #### A 1C #### [facility] [address] [place] [address] Dr. Rc Foster Glucose [Mass/Vol] 143 mg/dL Normal [facility] Comment on above: Performed By: #### A 1C #### [facility] [address] [address] [address] Rc Foster HbA1c (Bld) [Mass fraction] 6.6 % Critically high 4.5-6.2 [facility] Comment on above: Performed By: #### A 1C #### [facility] [address] [place] [address] Dr. Rc Foster LIPID PROFILEon 03-30-2022 CHOL-HDL RATIO NORM SEE BELOW Normal [facility] Comment on above: Result Comment: 3.3 - 4.4 LOW RISK 4.4 - 7.1 AVERAGE RISK 7.1 - 11.0 MODERATE RISK >11.0 HIGH RISK Performed By: #### T SH, CMP, LIPID ####[facility] [address] [address]Dr. Rc Foster Cholesterol [Mass/Vol] 184 mg/dL Normal <=200 [facility] Comment on above: Performed By: #### T SH, CMP, LIPID ####[facility] [address] [id number]. Rc Foster Cholesterol in HDL [Mass/Vol] 42 mg/dL Normal 40-60 [facility] Comment on above: Performed By: #### T SH, CMP, LIPID ####[facility] [address] [id number]. Rc Foster Cholesterol in LDL [Mass/Vol] 87.0 mg/dL Normal [facility] Comment on above: Performed By: #### T SH, CMP, LIPID ####[facility] [address] [phone]. Rc Foster Cholesterol.total/Cho lesterol in HDL [Mass ratio] 4.4 {ratio} Normal [facility] Comment on above: Performed By: #### T SH, CMP, LIPID ####[facility] [address] [id number]. cR Foster HDL NORMAL > or = 60 mg/dl - LO W CARDIOVASCULAR RISK <40 mg/dl - HIGH CARDIOVASCULAR RISK Normal [facility] Comment on above: Performed By: #### T MARY JANE, CMP, LIPID ####[facility] [address] [id number]. Rc Foster LDL CALC NORMAL SEE BELOW Normal [facility] Comment on above: Result Comment: <100 mg/dl OPTIMAL 100 - 129 mg/dl NEAR OR ABOVE OPTIMAL 130 - 159 mg/dl BORDERLINE HIGH 160 - 189 mg/dl HIGH >190 mg/dl VERY HIGH Performed By: #### T SH, CMP, LIPID ####[facility] [address] [id number]. Rc Foster Triglyceride [Mass/Vol] 275 mg/dL Critically high <=150 [facility] Comment on above: Performed By: #### T SH, CMP, LIPID ####[facility] [address] [id number]. Rc Foster VLDL CALC 55.0 mg/dL Normal [facility] Comment on above: Performed By: #### T SH, CMP, LIPID ####[facility] [address] [phone]. Rc Foster PROF 14(COMP METB)on 022 Albumin [Mass/Vol] 4.0 g/dL Normal 3.4-5.0 [facility] Comment on above: Performed By: #### T SH, CMP, LIPID ####[facility] [address] [address]Dr. Rc Foster Albumin/Globulin [Mass ratio] 1.1 {ratio} Normal [facility] Comment on above: Performed By: #### T SH, CMP, LIPID ####[facility] [address] [address]Dr. Rc Foster ALP [Catalytic activity/Vol] 71 U/L Normal 46-116 [facility] Comment on above: Performed By: #### T SH, CMP, LIPID ####[facility] [address] [address]Dr. Rc Foster ALT [Catalytic activity/Vol] 29 U/L Normal 14-59 [facility] Comment on above: Performed By: #### T SH, CMP, LIPID ####[facility] [address] [place], [place] [address]Dr. Rc Foster Anion gap [Moles/Vol] 13.2 mmol/L Normal [facility] Comment on above: Performed By: #### T SH, CMP, LIPID ####[facility] [address] [place], [place] [address]Dr. Rc Foster AST [Catalytic activity/Vol] 17 U/L Normal 15-37 [facility] Comment on above: Performed By: #### T SH, CMP, LIPID ####[facility] [address] [address]Dr. Rc Foster Bilirubin [Mass/Vol] 0.6 mg/dL Normal 0.2-1.0 [facility] Comment on above: Performed By: #### T SH, CMP, LIPID ####[facility] [address] [address]Dr. Rc Foster Calcium [Mass/Vol] 9.0 mg/dL Normal 8.5-10.1 [facility] Comment on above: Performed By: #### T SH, CMP, LIPID ####[facility] [address] [address]Dr. Rc Foster Chloride [Moles/Vol] 102 mmol/L Normal 98-107 [facility] Comment on above: Performed By: #### T SH, CMP, LIPID ####[facility] [address] [address]Dr. Rc Foster CO2 [Moles/Vol] 27.3 mmol/L Normal 21.0-32.0 [facility] Comment on above: Performed By: #### T SH, CMP, LIPID ####[facility] [address] [address]Dr. Rc Foster Creatinine [Mass/Vol] 1.00 mg/dL Normal 0.55-1.02 [facility] Comment on above: Performed By: #### T SH, CMP, LIPID ####[facility] [address] [address]Dr. Rc Foster EGFR-AF SERBIAN >60 Normal >=60 [facility] Comment on above: Performed By: #### T MARY JANE, CMP, LIPID ####[facility] [address] [address]Dr. Rc Foster EGFR-NON AF SERBIAN 56 mL/min/1.73m2 Critically low >=60 [facility] Comment on above: Performed By: #### T MARY JANE, CMP, LIPID ####[facility] [address] [address]Dr. Rc Foster Globulin (S) [Mass/Vol] 3.5 g/dL Normal [facility] Comment on above: Performed By: #### T MARY JANE, CMP, LIPID ####[facility] [address] [address]Dr. Rc Foster Glucose [Mass/Vol] 159 mg/dL Critically high 74-106 [facility] Comment on above: Performed By: #### T SH, CMP, LIPID ####[facility] [address] [address]Dr. Rc Foster Potassium [Moles/Vol] 4.5 mmol/L Normal 3.5-5.1 [facility] Comment on above: Performed By: #### T SH, CMP, LIPID ####[facility] [address] [place], [place] [address]Sa. Rc Foster Protein [Mass/Vol] 7.5 g/dL Normal 6.4-8.2 [facility] Comment on above: Performed By: #### T SH, CMP, LIPID ####[facility] [address] [place], [place] [address]Ma. Rc Foster Sodium [Moles/Vol] 138 mmol/L Normal 136-145 [facility] Comment on above: Performed By: #### T SH, CMP, LIPID ####[facility] [address] [place], [place] [address]Wa. Rc Foster Urea nitrogen [Mass/Vol] 23.0 mg/dL Critically high 7.0-18.0 [facility] Comment on above: Performed By: #### T SH, CMP, LIPID ####[facility] [address] [id number]. Rc Foster Urea nitrogen/Creatinine [Mass ratio] 23.0 mg/mg Normal [facility] Comment on above: Performed By: #### T SH, CMP, LIPID ####[facility] [address] [place], [place] [address]Uz. Rc Foster TSHon 03-30-2022 TSH 2.807 uIU/mL Normal 0.358-3.740 [facility] Comment on above: Performed By: #### T SH, CMP, LIPID ####[facility] [address] [id number]. Rc Foster US THYROIDon 03-30-2022 US THYROID EXAMINATION: US THYR OID HISTORY: Non-toxic uninodular goiter COMPARISON: Ultrasound thyroid [...] by: BERNY CANO Date: 2022-03-30 11:03 Normal [facility] MAMM SCREEN 3D LEX CADon 03-19-2022 MAMM SCREEN 3D LEX CAD Patient: CARROLL HARDEN Exam Date: 03/19/2022 : 1960 Gender:F Ordering : DR ROBERT CRUZ D.O. Admission #: [id number] Family : Order #: [id number] CLICK HERE TO VIEW EXAM RADIOLOGY REPORT PROCEDURE: MAMMOGRAM SCREENING 3D BILATERAL CAD COMPARISON: MAMM SCREEN 3D LEX CAD, 03/02/2021. MG MAMM SCREEN LEX W CAD, 02/26/2020. INDICATIONS: Screening mammography Calculator Name NCI Breast Cancer Risk Assessment Tool 5 Year Breast Cancer Risk 1.50% Lifetime Breast Cancer Risk 6.80% Personal Breast Cancer No Personal Ovarian Cancer No Treatments None Family Cancers None LOCATION: [facility] BREAST COMPOSITION: Scattered areas fibroglandular density. [...] Cano M.D. on 03/23/2022 at 11:59 Normal [facility] CBC AUTO DIFFon 11-27-2021 BASO # 0.0 103/ul Normal 0.0-0.1 [facility] Comment on above: Performed By: #### C BC #### [facility] [address] [place] [address] Dr. Rc Foster Basophils/100 WBC (Bld) 0.7 % Normal 0.2-2.0 [facility] Comment on above: Performed By: #### C BC #### [facility] [address] [place] [address] Dr. Rc Foster EO # 0.6 103/ul Normal 0.0-0.7 [facility] Comment on above: Performed By: #### C BC #### [facility] [address] [place] [address] Dr. Rc Foster Eosinophils/100 WBC (Bld) 10.3 % Critically high 0.9-7.0 [facility] Comment on above: Performed By: #### C BC #### [facility] [address] [place] [address] Dr. Rc Foster Erythrocyte distribution width (RBC) [Ratio] 12.4 % Normal 11.0-15.0 [facility] Comment on above: Performed By: #### C BC #### [facility] [address] [place] [address] Dr. Rc Foster Hematocrit (Bld) [Volume fraction] 41.2 % Normal 36.0-48.0 [facility] Comment on above: Performed By: #### C BC #### [facility] [address] [place] [address] Dr. Rc Foster Hemoglobin (Bld) [Mass/Vol] 13.4 g/dL Normal 12.0-16.0 [facility] Comment on above: Performed By: #### C BC #### [facility] [address] [place] [address] Dr. Rc Foster IG # 0.01 10e3/ul Normal 0.00-0.03 [facility] Comment on above: Performed By: #### C BC #### [facility] [address] [place] [address] Dr. Rc Foster IG % 0.2 % Normal 0.0-0.5 [facility] Comment on above: Performed By: #### C BC #### [facility] [address] [place] [address] Dr. Rc Foster LYMPH # 2.3 103/ul Normal 1.2-3.8 [facility] Comment on above: Performed By: #### C BC #### [facility] [address] [place] [address] Dr. Rc Foster Lymphocytes/100 WBC (Bld) 40.6 % Normal 20.5-60.0 [facility] Comment on above: Performed By: #### C BC #### [facility] [address] [place] [address] Dr. Rc Foster MANUAL DIFF REQ NO Normal [facility] Comment on above: Performed By: #### C BC #### [facility] [address] [place] [address] Dr. Rc Foster MCH (RBC) [Entitic mass] 28.8 pg Normal 26.7-34.0 [facility] Comment on above: Performed By: #### C BC #### [facility] [address] [place] [address] Dr. Rc Foster MCHC (RBC) [Mass/Vol] 32.5 g/dL Normal 29.9-35.2 [facility] Comment on above: Performed By: #### C BC #### [facility] [address] [place] [address] Dr. Rc Foster MCV (RBC) [Entitic vol] 88.6 fL Normal 81.0-99.0 [facility] Comment on above: Performed By: #### C BC #### [facility] [address] [place] [address] Dr. Rc Foster MONO # 0.4 103/ul Normal 0.3-0.8 [facility] Comment on above: Performed By: #### C BC #### [facility] [address] [place] [address] Dr. Rc Foster Monocytes/100 WBC (Bld) 7.6 % Normal 1.7-12.0 [facility] Comment on above: Performed By: #### C BC #### [facility] [address] [address] [address] Rc Foster NEUT # 2.3 103/ul Normal 1.4-6.5 [facility] Comment on above: Performed By: #### C BC #### [facility] [address] [address] [address] Rc Foster Neutrophils/100 WBC (Bld) 40.6 % Critically low 43.0-75.0 [facility] Comment on above: Performed By: #### C BC #### [facility] [address] [address] [address] Rc Foster Platelet mean volume (Bld) [Entitic vol] 9.6 fL Normal 9.5-13.5 [facility] Comment on above: Performed By: #### C BC #### [facility] [address] [place] [address] Dr. Rc Foster PLT 194 103/ul Normal 150-450 [facility] Comment on above: Performed By: #### C BC #### [facility] [address] [address] [address] Rc Foster RBC 4.65 106/ul Normal 4.20-5.40 [facility] Comment on above: Performed By: #### C BC #### [facility] [address] [place] [address] Dr. Rc Foster WBC 5.5 103/ul Normal 4.0-11.0 [facility] Comment on above: Performed By: #### C BC #### [facility] [address] [place] [address] Dr. Rc Foster GLYCOHEMOGLOBIN A1Con 2021 ADA RECOMMENDATION SEE BELOW Normal [facility] Comment on above: Result Comment: ADA RECOMMENDED LIMIT 4.0 - 6.0 ADA THERAPEUTIC TARGET < 7.0 ACTION SUGGESTED > 7.0 Performed By: #### A 1C #### [facility] [address] [address] [address] Rc Foster Glucose [Mass/Vol] 131 mg/dL Normal [facility] Comment on above: Performed By: #### A 1C #### [facility] [address] [place] [address] Dr. Rc Foster HbA1c (Bld) [Mass fraction] 6.2 % Normal 4.5-6.2 [facility] Comment on above: Performed By: #### A 1C #### [facility] [address] [place] [address] Dr. Rc Foster PROF CHEM 8 (BAS METB)on Anion gap [Moles/Vol] 15.2 mmol/L Normal [facility] Comment on above: Performed By: #### T MARY JANE, BMP #### [facility] [address] [place] [address] Dr. Rc Foster Calcium [Mass/Vol] 8.5 mg/dL Normal 8.5-10.1 [facility] Comment on above: Performed By: #### T MARY JANE, BMP #### [facility] [address] [place] [address] Dr. Rc Foster Chloride [Moles/Vol] 100 mmol/L Normal 98-107 [facility] Comment on above: Performed By: #### T MARY JANE, BMP #### [facility] [address] [place] [address] Dr. Rc Foster CO2 [Moles/Vol] 26.6 mmol/L Normal 21.0-32.0 [facility] Comment on above: Performed By: #### T MARY JANE, BMP #### [facility] [address] [place] [address] Dr. Rc Foster Creatinine [Mass/Vol] 1.15 mg/dL Critically high 0.55-1.02 [facility] Comment on above: Performed By: #### T MARY JANE, BMP #### [facility] [address] [place] [address] Dr. Rc Foster EGFR-AF SERBIAN 58 mL/min/1.73m2 Critically low >=60 [facility] Comment on above: Performed By: #### T MARY JANE, BMP #### [facility] [address] [place] [address] Dr. Rc Foster EGFR-NON AF SERBIAN 48 mL/min/1.73m2 Critically low >=60 [facility] Comment on above: Performed By: #### T SH, BMP #### [facility] [address] [place] [address] Dr. Rc Foster Glucose [Mass/Vol] 211 mg/dL Critically high 74-106 [facility] Comment on above: Performed By: #### T MARY JANE, BMP #### [facility] [address] [place] [address] Dr. Rc Foster Potassium [Moles/Vol] 4.8 mmol/L Normal 3.5-5.1 [facility] Comment on above: Performed By: #### T MARY JANE, BMP #### [facility] [address] [place] [address] Dr. Rc Foster Sodium [Moles/Vol] 137 mmol/L Normal 136-145 [facility] Comment on above: Performed By: #### T MARY JANE, BMP #### [facility] [address] [place] [address] Dr. Rc Foster Urea nitrogen [Mass/Vol] 33.0 mg/dL Critically high 7.0-18.0 [facility] Comment on above: Performed By: #### T MARY JANE, BMP #### [facility] [address] [place] [address] Dr. Rc Foster Urea nitrogen/Creatinine [Mass ratio] 28.7 mg/mg Normal [facility] Comment on above: Performed By: #### T MARY JANE, BMP #### [facility] [address] [place] [address] Dr. Rc Foster TSHon 11-27-2021 TSH 0.744 uIU/mL Normal 0.358-3.740 [facility] Comment on above: Performed By: #### T MARY JANE, BMP #### [facility] [address] [place] [address] Dr. Rc Foster SYMPTOMATIC COVID-19 ANTIGEN on 10-28-2021 EUA Statement SEE BELOW Normal [facility] Comment on above: Result Comment: This [...] revoked sooner. Performed By: #### C ELPIDIOS ####[facility] [address] [address]Dr. Rc Foster SARS-CoV-2 (COVID-19) RNA YARED+probe Ql (Unsp spec) Negative Normal NEGATIVE [facility] Comment on above: Performed By: #### C VDAGS ####[facility] [address] [address]Dr. Rc Foster GLYCOHEMOGLOBIN A1Con 2021 ADA RECOMMENDATION SEE BELOW Normal [facility] Comment on above: Result Comment: ADA RECOMMENDED LIMIT 4.0 - 6.0 ADA THERAPEUTIC TARGET < 7.0 ACTION SUGGESTED > 7.0 Performed By: #### A 1C #### [facility] [address] [place] [address] Dr. Rc Foster Glucose [Mass/Vol] 128 mg/dL Normal [facility] Comment on above: Performed By: #### A 1C #### [facility] [address] [address] [address] Rc Foster HbA1c (Bld) [Mass fraction] 6.1 % Normal 4.5-6.2 [facility] Comment on above: Performed By: #### A 1C #### [facility] [address] [place] [address] Dr. Rc Foster Discharge CCD Assessmenton 0 09-06-2020 Discharge CCD Assessment [facility] Patient: CARROLL HARDEN [address] [place] [address] MR#: [id number] DISCHARGE CCD ASSESSMENT : 58 Service Date: 09/06/20 1018 Discharge CCD Assessment Assessment Patient discharged home to continue exercises, pain medication, and wound care Electronically Signed eSign Date and Time eMlyssa Flores 09/06/20 1019 Tera Hernandez MD Normal [facility] GLUCOSE METERon 09-06-2020 Glucose [Mass/Vol] 126 mg/dL High 70-99 [facility] Comment on above: Order Comment: CONSE RVATION Result Comment: Fast ing GLUCOSE reference range has been updated per (ADA) [place] [employer]'s recommendation. 07/18/2018 Performed By: #### L 500.91914 ####Test performed at: [place] [address] Glucose [Mass/Vol] 205 mg/dL High 70-99 [facility] Comment on above: Order Comment: CONSE RVATION Result Comment: Fast ing GLUCOSE reference range has been updated per (ADA) [place] [employer]'s recommendation. 07/18/2018 Insulin per sl scale Performed By: #### L 500.85955 #### Test performed at: [place] [address] Internal Med Progress Noteon 09-06-2020 Internal Med Progress Note [facility] Patient: CARROLL HARDEN [address] [place] [address] MR#: [id number] PROGRESS NOTE - Internal Medicine : 58 [...] - 99 mg/dL) 126 205 177 310 Assessment/Plan-Internal Med Problem List 1. S/P cervical disc [...] eSign Date and Time Ana Flanagan RES, Katarzyna MD 09/06/20 1134 Normal [facility] Orthopedic Progress Noteon 0 09-06-2020 Orthopedic Progress Note [facility] Patient: CARROLL HARDEN [address] [place] [address] MR#: [id number] PROGRESS NOTE - Orthopedic : 58 Service [...] RN 09/06/20 1022 Tera Hernandez MD Normal [facility] Anesthesia Noteon 09-05-2020 Anesthesia Note [facility] Patient: CARROLL HARDEN [address] [place], [place] [id number] MR#: [id number] ANESTHESIA NOTE : Service Date: 09/05/20 08 [...] Signed eSign Date and Time Krystian Akers LICENSED PROSTHETIST/ORTHOTIST-SCRAP BALER 09/05/20812 Chu Glez MD Normal [facility] BASIC MET PANELon 09-05-2020 Anion gap [Moles/Vol] 12 mmol/L Normal 6-18 [facility] Comment on above: Performed By: #### L 500.49212, L500.68225 #### Test performed at: [address] [address] Calcium [Mass/Vol] 8.7 mg/dL Normal 8.5-10.1 [facility] Comment on above: Performed By: #### L 500.01944, L500.29582 #### Test performed at: [address] [address] Chloride [Moles/Vol] 101 mmol/L Normal 98-107 [facility] Comment on above: Performed By: #### L 500.57515, L500.10852 #### Test performed at: [address] [address] CO2 [Moles/Vol] 25 mmol/L Normal 21-32 [facility] Comment on above: Performed By: #### L 500.22940, L500.23700 #### Test performed at: [place] [address] Creatinine [Mass/Vol] 1.020 mg/dL Normal 0.550-1.020 [facility] Comment on above: Performed By: #### L 500.35115, L500.56346 #### Test performed at: [address] [address] Glucose [Mass/Vol] 264 mg/dL High 70-99 [facility] Comment on above: Result Comment: Fast ing GLUCOSE reference range has been updated per (ADA) [place] [employer]'s recommendation. 07/18/2018 Performed By: #### L 500.73669, L500.93537 #### Test performed at: [address] [address] OSM 289 mosm/kg Normal 270-300 [facility] Comment on above: Performed By: #### L 500.27726, L500.76819 #### Test performed at: [address] [address] Potassium [Moles/Vol] 4.5 mmol/L Normal 3.5-5.1 [facility] Comment on above: Performed By: #### L 500.48897, L500.33451 #### Test performed at: [address] [address] Sodium [Moles/Vol] 134 mmol/L Low 136-145 [facility] Comment on above: Performed By: #### L 500.50167, L500.43101 #### Test performed at: [address] [address] Urea nitrogen [Mass/Vol] 17 mg/dL Normal 7-18 [facility] Comment on above: Performed By: #### L 500.00621, L500.37588 #### Test performed at: [address] [address] GFR ESTIMATEon 09-05-2020 IF AMER > 60 Normal > 60 [facility] Comment on above: Result Comment: eGFR (Estimated GFR) Units of measure:mL/min/1.73 meters sq. *CALCULATION REVISED 02/11/2015;IDMS-traceable MDRD equation eGFR is derived from the reexpressed MDRD Study equation using the following parameters: serum creatinine, age, gender and race. An eGFR<60 mL/min/1.73m2 for >3 months is consistent with chronic kidney disease. Refer to KDOQI guidelines for clinical interpretation. Performed By: #### L 500.41540, L500.80567 #### Test performed at: [place] [address] IF non-AFR AMER 55 Low > 60 [facility] Comment on above: Performed By: #### L 500.29456, L500.87030 #### Test performed at: [address] [address] GLUCOSE METERon 09-05-2020 Glucose [Mass/Vol] 177 mg/dL High 70-99 [facility] Comment on above: Order Comment: CONSE RVATION Result Comment: Fast ing GLUCOSE reference range has been updated per (ADA) [place] [employer]'s recommendation. 07/18/2018 Performed By: #### L 500.17113 #### Test performed at: [address] [address] Glucose [Mass/Vol] 310 mg/dL High 70-99 [facility] Comment on above: Result Comment: Fast ing GLUCOSE reference range has been updated per (ADA) [place] [employer]'s recommendation. 07/18/2018 Insulin per sl scale Performed By: #### L 500.62474 ####Test performed at: [address] [address] Glucose [Mass/Vol] 281 mg/dL High 70-99 [facility] Comment on above: Result Comment: Fast ing GLUCOSE reference range has been updated per (ADA) [place] [employer]'s recommendation. 07/18/2018 Insulin per sl scale Performed By: #### L 500.90737 #### Test performed at: [place] [address] Glucose [Mass/Vol] 105 mg/dL High 70-99 [facility] Comment on above: Result Comment: Fast ing GLUCOSE reference range has been updated per (ADA) [place] [employer]'s recommendation. 07/18/2018 Performed By: #### L 500.83751 #### Test performed at: [place] [address] HGB AND HCTon 09-05-2020 Hematocrit (Bld) [Volume fraction] 37.5 % Normal 36.0-48.0 [facility] Comment on above: Performed By: #### L 200.67225 #### Test performed at: [place] [address] Hemoglobin (Bld) [Mass/Vol] 12.5 g/dL Normal 12.0-15.0 [facility] Comment on above: Performed By: #### L 200.27711 #### Test performed at: [place] [address] Internal Med Progress Noteon 09-05-2020 Internal Med Progress Note [facility] Patient: CARROLL HARDEN [address] [place] [address] MR#: [id number] PROGRESS NOTE - Internal Medicine : 58 [...] 12.5 Hct (36.0 - 48.0 %) 37.5 Assessment/Plan-Internal Med Problem List 1. S/P cervical disc [...] input. Disc (more content not included)... Normal [facility] OT Therapy Recommendationson 09-05-2020 OT Therapy Recommendations [facility] Patient: CARROLL HARDEN [address] [place], [place] [id number] MR#: [id number] OT THERAPY RECOMMENDATIONS : 58 Service Date: 09/05/20 151 Therapy Recommendations Therapy Recommendations Recommendations OT evaluation completed. OT recommends HOME with FAmily assist. No further acute OT needs are indicated at this time. Electronically Signed eSign Date and Time Trupti Rojas OT 09/05/20 1512 Normal [facility] Orthopedic Progress Noteon 0 09-05-2020 Orthopedic Progress Note [facility] Patient: CARROLL HARDEN [address] [place], [place] [id number] MR#: [id number] PROGRESS NOTE - Orthopedic : 58 Service [...] Pulse Ox 97 09/05 1055 B/P 120/58 05/14 1055 O2 Delivery ROOM AIR 09/05 1055 [...] KHAN 09/05/20 1429 Tera Hernandez MD Normal [facility] PT Therapy Recommendationson 09-05-2020 PT Therapy Recommendations [facility] Patient: CARROLL HARDEN [address] [place] [address] MR#: [id number] PT THERAPY RECOMMENDATIONS : 58 Service Date: 09/05/20 0914 Therapy Recommendations Therapy Recommendations Recommendations PT eval complete. No further acute PT needs. Recommend d/c home /c family assist. Electronically Signed eSign Date and Time Tiffanie Bashir PT 09/05/20 0914 Normal [facility] z OT Inpatient Discharge Not juan 09-05-2020 z OT Inpatient Discharge Note [facility] Patient: CARROLL HARDEN [address] [place] [id number] MR#: [id number] OT INPATIENT DISCHARGE NOTE : 58 Service [...] Time Trupti Rojas OT 09/05/20 1534 Normal [facility] z OT Inpatient Evaluationon 09-05-2020 z OT Inpatient Evaluation [facility] Patient: CARROLL HARDEN [address] [place] [address] MR#: [id number] OT INPATIENT EVALUATION : 58 Inpatient OT HPI Date of Service 09/05/20 Time In: 1401 Time Out: 1412 Total Treatment Time (Mins) 11 Visit Reason LATERAL RECESS STENOSIS W/ RADICULOPATHY Surgery Type/Date s/p L L4-5 LAmi, foraminotomy, decompression on 09.04.20/ Lumbar spine precautions Referral Date 09/04/20 Tx Diagnosis: LOW BACK PAIN Insurance Name [employer] [facility] Hospital Course Pt is a left hand [...] 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 Objective Precautions Lumbar Spine [...] functional mobility tasks. Outcome Measures Ayana Score Yaana Score Response Value Feeding Independent 10 Bathing [...] Excellent Nader (more content not included)... Normal [facility] z PT Inpatient Discharge Not juan 09-05-2020 z PT Inpatient Discharge Note [facility] Patient: CARROLL HARDEN [address] [place] [id number] MR#: [id number] PT INPATIENT DISCHARGE NOTE : 58 Service [...] Time Tiffanie Bashir PT 09/05/20 1139 Normal [facility] z PT Inpatient Evaluationon 09-05-2020 z PT Inpatient Evaluation [facility] Patient: CARROLL HARDEN [address] [place] [address] MR#: [id number] PT INPATIENT EVALUATION : 58 Service Date: 09/05/20 0928 Inpatient PT HPI Date of Service 09/05/20 Time In: 0845 Time Out: 0907 Total Treatment Time (Mins) 22 Room Number 624 Visit Reason LATERAL RECESS STENOSIS W/ RADICULOPATHY Surgery Type: L L4-5 lami, foraminotomy, decompression Surgery Date: 09/04/20 Referral Date 09/04/20 Tx Diagnosis: LOW BACK PAIN Insurance Name [facility] POS [facility] Hospital Course 60 y.o female at [facility] for above sx d/t lateral recess stenosis /c radiculopathy. PT orders received eval/tx, encourage ambulation, logroll, ad jeremiah /c assist, brace OOR. Pt supine, agreeable to session. Past Medical/Social History Problem List Medical Problems Cervical disc disease Depression DM (diabetes mellitus) Hx of supraventricular tachycardia Hyperlipidemia Hypothyroidism Migraine STEHPANIE (obstructive sleep apnea) Pre-operative exam RLS (restless [...] posture. Improved stability noted /c single UE support/KNITTER MACHINE. Pt agreeable to use of her cane [...] Time Tiffanie Bashir PT 09/05/20 1502 Normal [facility] GLUCOSE METERon 09-04-2020 Glucose [Mass/Vol] 94 mg/dL Normal 70-99 [facility] Comment on above: Result Comment: Fast ing GLUCOSE reference range has been updated per (ADA) [place] [employer]'s recommendation. 07/18/2018 Performed By: #### L 500.75708 ####Test performed at: [place] [address] Internal Medicine Consultati onon 09-04-2020 Internal Medicine Consultation [facility] Patient: CARROLL HARDEN [address] [place] [address] MR#: [id number] CONSULTATION - Internal Medicine : 58 Service Date: 09/04/20 1547 History of Present Illness Referring Physician Tera Hernandez MD Consulted Physician Amber Haines MD Reason for Consult Postoperative medical [...] Ref 0 (Reported) Entered as Reported by RAISA CABELLO on 09/04/201056 Last Action: Reviewed on 09/04/201056 by RAISA CABELLO Atenolol * (Tenormin *) 50 MG TABLET 50 MG PO DAILY MIGRAINES, Ref 0 (Reported) Entered as Reported by JORDON MATHUR on 12/11/18 0920 Last Action: Reviewed on 09/04/20 105 by RAISA CABELLO Citalopram Hydrobromide * (CeleXA *) 40 MG TABLET 40 MG PO DAILY DEPRESSION, Ref 0 ( Reported) Entered as Reported by JORDON MATHUR on 12/11/18 0917 Last Action: Reviewed on 09/04/20 105 by RAISA CABELLO clonazePAM * (KlonoPIN 0.5mg Tablet*) 0.5 MG TABLET 1.5 MG PO QHS RESTLESS LEG, Ref 0 ( Reported) Entered as Reported by JORDON MATHUR on 12/11/18 0919 Last Action: Reviewed on 09/04/201054 by RAISA CABELLO Glimepiride * (Amaryl *) 4 MG TABLET 4 MG PO DAILY, Ref 0 (Reported) Entered as Reported by JORDON MATHUR on 12/11/1816 Last Taken: 09/03/20 Last Action: Reviewed on 09/04/20 105 by RAISA CABELLO Levothyroxine Sodium * (Synthroid *) 125 MCG TABLET 125 MCG PO DAILY HYPOTHROIDISM, Ref 0 (Reported) Entered as Reported by JORDON MATHUR on 12/11/18920 Last Action: Reviewed on 09/04/20 105 by RAISA CABELLO Metformin HCl (Glucophage) 500 MG TABLET 500 MG PO BID DIABETES, Ref 0 (Reported) Entered as Reported by JORDON MATHUR on 12/11/18920 Last Action: Reviewed on 09/04/20 105 by RAISA CABELLO Nabumetone * (Relafen *) 500 MG TABLET 1,000 MG PO BID, Ref 0 (Reported) Entered as Reported by RAISA CABELLO on 09/04/20 105 Last Action: Reviewed on 09/04/20 105 by RAISA CABELLO Pravastatin Sodium * (Pravachol *) 20 MG TABLET 20 MG PO QHS HIGH CHOLESTROL, Ref 0 ( Reported) Entered as Reported by JORDON MATHUR on 12/11/1817 Last Action: Reviewed on 09/04/20 105 by RAISA CABELLO tiZANidine HCl * (Zanaflex *) 4 MG TABLET 4 MG PO QHS MUSCLE SPASMS, Ref 0 (Reported) Entered as Reported by JORDON MATHUR on 12/11/18915 Last Action: Reviewed on 09/04/20 105 by RAISA CABELLO Scheduled PRN Medications Oxycodone HCl * (Roxicodone 5mg Tablet*) 5 MG TABLET 5 MG PO BIDPRN PRN Pain, Ref 0 ( Reported) Entered as Reported by RAISA CABELLO on 09/04/20 1049 Last Action: Reviewed on 09/04/20 105 by RAISA CABELLO Rizatriptan Benzoate* (Maxalt*) 10 MG TABLET 10 MG PO BIDPRN PRN MIGRAINES, Ref 0 ( Reported) Entered as Reported by JORDON MATHUR on 12/11/18 0915 Last Action: Reviewed on 09/04/20 1055 by RAISA CABELLO Discontinued Medications oxyCODONE HCl 5mg AND Acetaminophen 325mg * (Percocet 5mg/325mg Tablet *) 1 EACH TABLET 1 EACH PO Q4-6H PRN PRN post op pain 7 Days #40 TABLET, Ref 0 Discontinued reason: DC'ed by Physician Last Action: Discontinued on 09/04/20 1048 by RAISA CABELLO Review of Systems (more content not included)... Normal [facility] OPERATIVE REPORTon OPERATIVE REPORT NAME: CARROLL HARDEN MR#: [id number] SURGEON: Tera Hernandez MD DATE OF SURGERY: [...] there were no complications. TERA HERNANDEZ MD [facility] PT NAME: CARROLL HARDEN MR#: [id number] [address] [place] [address] ACCT: [id number] : 58 OPERATIVE REPORT JFS/MODL/[id number] E/S: Tera Hernandez MD 09/18/20 1207 Electronically Signed [facility] PT NAME: CARROLL HARDEN MR#: [id number] [address] [place], [place] [address] ACCT: [id number] : 58 OPERATIVE REPORT Normal [facility] Primary Residenton 1 Primary Resident [facility] Pt Name: CARROLL HARDEN MR#: [id number] [address] [place] [address] ACCT: [id number] [place] [id number] : 58 Service Date: 09/04/20 1603 Primary Resident/Call Primary Resident: [id number] [address] After Hours Call: [phone] Red Team Electronically Signed eSign Date and Time Ana Flanagan RES 09/16/20 1521 Normal [facility] LUMBAR SPINE 2 OR 3 VIEWSon 09-03-2020 LUMBAR SPINE 2 OR 3 VIEWS STUDY: LUMBAR SPINE 2 OR 3 VIEWS; 09/04/2020 2:57 pm INDICATION: LEFT L4-L5 LAMINECTOMY,FORAMINOTOMY ,DECOMPRESSION. COMPARISON: None. ACCESSION NUMBER(S): [id number] ORDERING CLINICIAN: Tera Hernandez FINDINGS: Intraoperative fluoroscopy of the lumbar spine demonstrates surgical instruments posterior to L5. IMPRESSION: As above Normal [facility] CHEST PA/AP & LATERALon CHEST PA/AP & LATERAL STUDY: CHEST PA/AP LATERAL; 08/25/2020 11:00 am INDICATION: SOB/PAT. COMPARISON: None. ACCESSION NUMBER(S): [id number] ORDERING CLINICIAN: Madelyn Leslie FINDINGS: The lungs are clear without pleural effusion. Normal heart size, mediastinum, elzbieta, and pulmonary vasculature. IMPRESSION: No active disease in the chest. Normal [facility] CONSULTATION REPORTon 2020 CONSULTATION REPORT NAME: CARROLL HARDEN MR#: [id number] NURSERY TECHNICIAN: Madelyn Leslie MD DATE OF CONSULTATION: 08/25/2020 [...] Significant for, 1. Diabetes, well controlled. 2. Hypertension/migraine. 3. Hyperlipidemia. 4. Hypothyroidism and ADAN. PREVIOUS [...] pulse ox is 98% on room air. [facility] PT NAME: CARROLL HARDEN MR#: [id number] [address] [place] [address] ACCT: [id number] : 58 CONSULTATION HEENT: Atraumatic head. Pupils [...] we are getting the results from her overhead garage door hanger in [place]. IMPRESSION: 1. Preop clearance for L4-L5 disk [...] you for the courtesy of this consultation. MEANDRZEJ LESLIE MD MS/MODL/[id number] E/S: Madelyn Leslie MD 08/26/20 1750 Electronically Signed [facility] PT NAME: CARROLL HARDEN MR#: [id number] [address] [place] [address] ACCT: [id number] : 58 CONSULTATION Normal [facility] LUMB SP COMP W FLEX/EXT 6 VW S>on 08-08-2020 LUMB SP COMP W FLEX/EXT 6 VWS> STUDY: LUMB SP COMP W FLEX/EXT 6 VWS>; 08/08/2020 9:43 am INDICATION: BACK PAIN. COMPARISON: No available comparisons. ACCESSION NUMBER(S): [id number] ORDERING CLINICIAN: Tera Hernandez TECHNIQUE: 6 views [...] L5-S1 level. No evidence of instability.. Normal [facility] XR SHLDR >/=3V AP/RUSH AP/OTH [...] MD on Jul 03 2018 10:17AM EST [id number] [facility] ANES Holly 06-20-2018 ANES POST HNO ID: [id number] Author: Rohit Velarde Service: Anesthesiology Author Type: [...] 20, 2018 TIME: 2:38 PM PAGER/CONTACT #: [facility] ANES PREOPon 06-20-2018 ANES PREOP HNO ID: [id number] Author: Rohit Velarde Service: Anesthesiology Author Type: [...] ringers infusion 5-30 mL/hr INTRAVENOUS CONTINUOUS Isreal Mccabe (Santos) Walker ceFAZolin iv piggyback 2 g in D5W (iso-osmotic) 100 mL (ANCEF) 2 g INTRAVENOUS Pre-Op Once Isreal Kim) Trent acetaminophen 1,000 mg tab(s) (TYLENOL) 1,000 mg ORAL ONCE Isreal Kim) Trent bupivacaine liposome (PF) 1.3 % (13.3 mg/mL) 133 mg injection (EXPAREL) 133 mg INFILTRATION ONCE Rohit Podolyak midazolam (PF) 2-4 mg injection (VERSED) 2-4 mg INTRAVENOUS ONCE Rohit Velarde Allergies: ALLERGIES Allergen Reactions - Contrast Dye [...] June 20, 2018 TIME: 9:35 AM CSN: [id number] [facility] BRIEF OP NOTon 06-20-2018 BRIEF OP NOT HNO ID: [id number] Author: Kusum Francisco Service: Orthopaedic Surgery Author Type: Resident Type: Brief Op Note Filed: 06/20/2018 5:49 PM Note Text: BRIEF OP NOTE LOG ID: [id number] Surgery/Procedure Date: 06/20/2018 Incision/Procedure Start Time: 11:18 AM Incision Close/Procedure End Time: 1:17 PM Surgeon(s)/Proceduralist (s) and Slack Line Yarder(s): Surgeon(s) and Role: * Jenna Lentz - Primary * Augie Ortega - Fellow * Kusum Francisco - Resident - Assisting Procedure(s): right total shoulder arthroplasty Anesthesia: General Findings: glenohumeral arthritis Estimated Blood Loss: 150 mls Specimens: None Complications: None Pre-Op/Pre-Procedure Diagnosis: glenohumeral arthritis Post-Op/Post-Procedure Diagnosis: Glenohumeral arthritis, right [M19.011] SIGNATURE: Kusum Francisco MD PATIENT NAME: Carroll Harden DATE: June 20, 2018 TIME: 5:49 PM PAGER/CONTACT #: [facility] CASE MANAGEMon 06-20-2018 CASE MANAGEM HNO ID: [id number] Author: May Herrera (Sw) Service: Care Management Author Type: Baseball Inspector Type: Care Mgt Progress Note Filed: 06/20/2018 [...] is pcp summary of care sent via [facility] () Nurse to provide discharge instructions. TRANSPORTATION ARRANGEMENTS: Car Spouse ADDITIONAL CONTACT RESOURCES: Needs Prior to Discharge: Ready for Discharge Appointments for Next 45 Days Date Time Provider Location Dept Phone 07/03/2018 10:00 AM CAROLA BAPTISTE AT [phone] 07/03/2018 10:30 AM GABRIEL CANTU) LATOSHA AT [phone] 07/31/2018 2:15 PM JENNA LENTZ AT [phone] Pt to be discharged home to follow up as above. SIGNATURE: DARIO Saini PATIENT NAME: Carroll Harden DATE: June 20, 2018 TIME: 5:31 PM PAGER/CONTACT #: [phone] [facility] CASE MGT INIT DARYLon 2018 CASE MGT INIT DARYL HNO ID: [id number] Author: May Herrera (Sw) Service: Care Management Author Type: Baseball Inspector Type: Care Mgt Initial Assessment Filed: 06/20/2018 5:31 PM Note Text: CARE MANAGEMENT: ASSESSMENT AND DISCHARGE PLAN SERVICE DATE: 06/20/2018 SERVICE TIME: 5:27p PRIMARY CARE PHYSICIAN: Robert Cruz MD ADMISSION STATUS: Inpatient Needs Prior to Discharge: Ready for Discharge MEDICAL: Patient/Dog Pound Attendant Stated Goals: To improve my functional status [...] Spouse Financial Resources: 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 O.Therapy recommend home. Spouse visiting at bedside and will transport pt home later today.Further discharge needs not anticipated.SW/TCC to follow to assist with plans for discharge. SIGNATURE: DARIO Saini PATIENT NAME: Carroll Harden DATE: June 20, 2018 TIME: 5:27 PM PAGER/CONTACT #: [phone] [facility] CONSULTon 06-20-2018 CONSULT HNO ID: [id number] Author: Dulce Green Service: General Internal Medicine [...] Disp: Rfl: 06/19/2018 at 0630 rizatriptan (MAXALT LINE REPAIRER) 10 mg disintegrating tablet DISSOLVE 1 TABLET [...] - morphine 2 mg injectionDisp: Rfl: - oxyCODONE-acetaminophen 5-325 mg 1-2 tablet (PERCOCET)Disp: Rfl: - [...] care of your patient. Dulce Green, JOSE E.MANAGER EMBALMER FUNERAL DIRECTOR June 20, 2018 4:34 PM Normal [facility] NURSING PROGon 06-20-2018 Protein mass conc HNO ID: [id number] Author: Fela (Rn) FLETCHER Phillips Service: (none) Author Type: Registered Nurse Type: Nursing Progress Note Filed: 06/20/2018 7:39 PM Note Text: Nursing Progress Note Patient Name: Carroll Harden Patient Location: [place] [address]/ [place]-* Daily Note: 1545. Care assumed. Pt resting [...] at bedside. 1720. Dr. Blake and Dulce PLASTIC SURGERY NURSE at bedside, plan is to stay for [...] and safe doses reviewed on discharge summary. 190. Pt leaving floor via wheelcahir, possessions with pt. This note was completed by: Fela Phillips RN [facility] Protein mass conc HNO ID: [id number] Author: Wendy ValenciaRn) FLETCHER Underwood Service: Nursing Author Type: Registered Nurse Type: Nursing Progress Note Filed: 06/20/2018 10:20 AM Note Text: Nursing Progress Note Patient Name: Carroll Harden Patient Location: SURGERY [facility] Daily Note:Right interscalene nerve block with ultrasound guidance with Dr. Velarde and Dr. Marlow at bedside. Patient tolerated procedure well, VSS, will continue to monitor as we wait for OR team. Resting comfortably with no complaints of pain at this time. This note was completed by: Wendy Underwood RN [facility] OPERATIVE NOon 06-20-2018 OPERATIVE NO HNO ID: [id number] Author: Jenna Lentz Service: Orthopaedic Surgery Author Type: Physician Type: Operative Report Filed: 06/20/2018 1:25 PM Note Text: [place] [address] [place] OPERATIVE REPORT [facility] [id number] DATE: 06/20/2018 (11:18am-1:17pm) AGE: 58 SURGEON 1: Jenna Lentz M.D. PLANT PROTECTION OFFICER: 1. Augie Coates M.D. 2. Kusum Prasad M.D. 3. Mundo Pablo OPERATION: Right total shoulder arthroplasty, biceps tenodesis. ANESTHESIA: General anesthesia with regional interscalene nerve block for postoperative pain control. PREOPERATIVE DIAGNOSIS: Right shoulder primary glenohumeral osteoarthritis. POSTOPERATIVE DIAGNOSIS: Right shoulder primary glenohumeral osteoarthritis, biceps tendinopathy. OPERATIVE INDICATIONS: The patient is a 58 year oldpii-opqo-hdx right-hand dominant white female who has a [...] rotator interval stitch was then passed in tjykpc-gs-rwywp fashion with a #2 Ticron suture and tied down to close the lateral rotator interval and set the osteotomy superiorly. The two #2 Fiberwire sutures coming out of the bicipital groove were then sequentially passed in a wpdgwj-xr-qavdr fashion medial to the horizontal mattress and [...] none COMPLICATIONS: none apparent Jenna Lentz M.D. [facility] PT EDon 06-20-2018 PT ED HNO ID: [id number] Author: Cindy ValenciaRnTyesha Griffin RN Service: (none) [...] Signed By: Cindy Griffin RN In Department: [facility] THERAPY NTon 06-20-2018 THERAPY NT HNO ID: [id number] Author: Abi Phillips Service: Occupational Therapy Author Type: Occupational Therapist Type: Therapy (PT/OT/Speech/Resp) Filed: 06/20/2018 4:59 PM Note Text: Occupational Therapy Evaluation SERVICE DATE: 06/20/2018 SERVICE TIME: 1550 to 1640 [facility]OM: [facility] FL-523-P Recommended Discharge Disposition: Home Anticipated Discharge Needs: Physical Assist at Home Physical Assist at Home for: Shopping;Transportation; Cleaning;Laundry;Meals;M edication Management OT Recommendations to Nursing: ADL?s in [...] Session Occupational Therapy Problem List: Education Deficit;Safety Deficits;Pain;Edema;Impa ired Self Care;Decreased Activity Tolerance;Decreased Skin Integrity Patient [...] with: Patient;Family TREATMENT INTERVENTIONS: Therapy Diagnosis: Reduced mobility-other;Decreased activities of daily living (ADL) Interventions Provided: Evaluation;Therapeutic Exercise (08016);Self Correction Management (48080) $ Evaluation-Low (78326) Billed Units: 1 unit Therapeutic Exercise (75268) Treatment Minutes: 10 1 unit Skilled Intervention(s): Education in Self Correction Management (95417) Treatment Minutes: 28 2 units Skilled Intervention(s): [...] DATE: June 20, 2018 TIME: 4:54 PM [facility] XR SHOULDER 2V AP/TRUE AP RT [...] MD on Jun 20 2018 2:04PM EST [id number] [facility] NURSING PROGon 06-09-2018 Protein mass conc HNO ID: [id number] Author: Ivana (Rn) FLETCHER Heller Service: Nursing [...] 2018 11:10 AM Addendum 06/15/18 EKG IN [facility] FINAL Ivana Heller RN June 15, 2018 4:39 PM Normal [facility] Type and SCR (30D)on 019 ABO/RH(D) Positive Normal [facility] HOSPon 04-28-2018 HOSP Patient:Adalberto Harden MRN: Height:5' 2 (1.575 m) Weight:186 lb (84.369 kg) Outpatient Medications as of 06/20/18: calcium phosphate dibas/vit D3 (VITAMIN D, WITH CALCIUM, ORAL) docusate sodium (COLACE) 100 mg capsule aspirin, enteric coated (ECOTRIN LOW STRENGTH) 81 mg EC tablet oxyCODONE-acetaminophen (PERCOCET) 5-325 mg tablet rizatriptan (MAXALT LINE REPAIRER) 10 mg disintegrating tablet mupirocin (BACTROBAN) 2 [...] CT SCAN PERSON [facility]): RT Llilian, Tech 06/07/2018 10:04 AM Sign at close [...] Lillian June 07, 2018 9:54 AM Normal [facility] Vital Signs Date Time Vital Sign Value Performing Clinician Facility 06-25-2024 10:11-0500 Body temperature 97.3 [degF] [facility] 06-25-2024 10:11-0500 Diastolic blood pressure 76 mm[Hg] [facility] 06-25-2024 10:11-0500 Heart rate 54 /min [facility] 06-25-2024 10:11-0500 Respiratory rate 16 /min [facility] 06-25-2024 10:11-0500 SaO2% (BldA) [Mass fraction] 98 % [facility] 06-25-2024 10:11-0500 Systolic blood pressure 119 mm[Hg] [facility] 06-25-2024 10:07-0500 Body height 154.94 cm [facility] 06-25-2024 10:07-0500 Body mass index (BMI) [Ratio] 32.9 kg/m2 [facility] 06-25-2024 10:07-0500 Body weight 79.15 kg [facility] 02-24-2024 14:13-0400 Body height 154.94 cm [facility] 02-24-2024 14:13-0400 Body mass index (BMI) [Ratio] 33.1 kg/m2 [facility] 02-24-2024 14:13-0400 Body temperature 96 [degF] [facility] 02-24-2024 14:13-0400 Body weight 79.6 kg [facility] 02-24-2024 14:13-0400 Diastolic blood pressure 84 mm[Hg] [facility] 02-24-2024 14:13-0400 Heart rate 66 /min [facility] 02-24-2024 14:13-0400 Systolic blood pressure 159 mm[Hg] [facility] 12-20-2023 15:35-0400 Body height 154.94 cm [facility] 12-20-2023 15:35-0400 Body mass index (BMI) [Ratio] 33.8 kg/m2 [facility] 12-20-2023 15:35-0400 Body weight 81.19 kg [facility] 12-20-2023 15:35-0400 Diastolic blood pressure 80 mm[Hg] [facility] 12-20-2023 15:35-0400 Heart rate 78 /min [facility] 12-20-2023 15:35-0400 Respiratory rate 12 /min [facility] 12-20-2023 15:35-0400 Systolic blood pressure 134 mm[Hg] [facility] 04-29-2023 09:00-0500 Body height 154.94 cm Robert Ball Other [facility] Other 04-29-2023 09:00-0500 Body mass index (BMI) [Ratio] 33.14 kg/m2 Robert Ball Other [facility] Other 04-29-2023 09:00-0500 Body weight 79.56 kg Robert Ball Other [facility] Other 04-29-2023 09:00-0500 Diastolic blood pressure 89 mm[Hg] Robert Ball Other [facility] Other 04-29-2023 09:00-0500 Respiratory rate 12 /min Robert Ball Other [facility] Other 04-29-2023 09:00-0500 Systolic blood pressure 155 mm[Hg] Robert Ball Other [facility] Other 12-20-2022 13:45-0400 Body height 154.94 cm Robert Ball Other [facility] Other 12-20-2022 13:45-0400 Body mass index (BMI) [Ratio] 34.12 kg/m2 Robert Ball Other [facility] Other 12-20-2022 13:45-0400 Body weight 81.92 kg Robert Ball Other [facility] Other 12-20-2022 13:45-0400 Diastolic blood pressure 96 mm[Hg] Robert Ball Other [facility] Other 12-20-2022 13:45-0400 Respiratory rate 12 /min Robert Ball Other [facility] Other 12-20-2022 13:45-0400 Systolic blood pressure 179 mm[Hg] Robert Ball Other [facility] Other 08-04-2022 09:45-0400 Body height 154.94 cm Robert Ball Other [facility] Other 08-04-2022 09:45-0400 Body mass index (BMI) [Ratio] 33.33 kg/m2 Robret Ball Other [facility] Other 08-04-2022 09:45-0400 Body weight 80.02 kg Robert Ball Other [facility] Other 08-04-2022 09:45-0400 Diastolic blood pressure 77 mm[Hg] Robert Ball Other [facility] Other 08-04-2022 09:45-0400 Respiratory rate 12 /min Robert Ball Other [facility] Other 08-04-2022 09:45-0400 Systolic blood pressure 128 mm[Hg] Robert Ball Other [facility] Other Encounters Encounter Date Encounter Type Care Provider Facility Start: 06-25-2024 End: 06-25-2024 ambulatory [facility] Work Phone: Start: 06-25-2024 End: 06-25-2024 [facility] encounter procedure [facility] Work Phone: Start: 06-21-[address] [facility] Facility[facility] Start: 06-01-2024 Non-patient / Non-visit [facility] Work Phone: Start: 05-31-2024 Non-patient / Non-visit [facility] Work Phone: Start: 04-09-2024 End: 04-09-2024 ambulatory Miriam Barron MD Facility: [facility] Start: 02-24-2024 End: 02-24-2024 ambulatory [facility] Work Phone: Start: 02-24-2024 End: 02-24-2024 Patient encounter procedure [facility] Work Phone: Start: 02-22-2024 Non-patient / Non-visit [facility] Work Phone: Start: 12-27-2023 Non-patient / Non-visit [facility] Work Phone: Start: 12-20-2023 Patient encounter status [facility] Start: 12-20-2023 End: 12-20-2023 ambulatory [facility] Work Phone: Start: 12-20-2023 End: 12-20-2023 Patient encounter procedure [facility] Work Phone: Start: 09-26-2023 End: 09-26-2023 ambulatory Miriam Barron MD Facility: [facility] Start: 08-15-2023 End: 08-15-2023 ambulatory Miriam Barron MD Facility: [facility] Start: 08-08-2023 End: 08-08-2023 ambulatory Miriam Barron MD Facility: [facility] Start: 06-27-2023 End: 06-27-2023 ambulatory Miriam Barron MD Facility: [facility] Start: 06-06-2023 End: 06-06-2023 ambulatory Miriam Barron MD Facility: [facility] Start: 06-01-2023 End: 06-01-2023 ambulatory Robert Cruz Other [facility] Other Start: 06-01-2023 Telephone encounter Robert CHAVARRIA [facility] Start: 05-23-2023 End: 05-23-2023 ambulatory Miriam Barron MD Facility: [facility] Start: 05-13-2023 End: 05-13-2023 ambulatory Robert Cruz Other [facility] Other Start: 05-13-2023 Telephone encounter Robert CHAVARRIA [facility] Start: 05-09-2023 End: 05-09-2023 ambulatory Robert Cruz Other [facility] Other Start: 05-09-2023 Telephone encounter Robert CHAVARRIA [facility] Start: 05-04-2023 End: 05-04-2023 ambulatory Robert Cruz Other [facility] Other Start: 05-04-2023 Telephone encounter Robert Cruz [facility] Start: 05-02-2023 End: 05-02-2023 ambulatory Robert Cruz Other [facility] Other Start: 05-02-2023 Telephone encounter Robert CHAVARRIA [facility] Start: 04-29-2023 End: 04-29-2023 ambulatory Robert Cruz Other [facility] Other Start: 04-29-2023 Office outpatient vi sit 15 minutes Robert Hamilton [facility] Start: 04-04-2023 End: 04-04-2023 ambulatory Robert Cruz Other [facility] Other Start: 04-04-2023 Telephone encounter Robert CHAVARRIA [facility] Start: 01-24-2023 End: 01-24-2023 ambulatory Robert Cruz Other [facility] Other Start: 01-24-2023 Telephone encounter Robert Cruz [facility] Start: 12-23-2022 End: 12-23-2022 ambulatory Robert Ball Other [facility] Other Start: 12-23-2022 Telephone encounter Robert Cruz [facility] Start: 12-20-2022 End: 12-20-2022 ambulatory Robert Cruz Other [facility] Other Start: 12-20-2022 Office outpatient vi sit 15 minutes Robert Cruz [facility] Start: 12-17-2022 End: 12-17-2022 ambulatory Robert Cruz Other [facility] Other Start: 12-17-2022 Telephone encounter Robert Cruz [facility] Start: 11-08-2022 End: 11-08-2022 ambulatory Robert Cruz Other [facility] Other Start: 11-08-2022 Telephone encounter Robert Cruz [facility] Start: 10-22-2022 End: 10-22-2022 ambulatory Robert Cruz Other [facility] Other Start: 10-22-2022 Telephone encounter Robert Cruz [facility] Start: 10-13-2022 End: 10-13-2022 ambulatory Robert Cruz Other [facility] Other Start: 10-13-2022 Telephone encounter Robert Cruz [facility] Start: 09-27-2022 End: 09-27-2022 ambulatory Robert Cruz Other [facility] Other Start: 09-27-2022 Telephone encounter Robert Cruz [facility] Start: 08-23-2022 End: 08-24-[address] RISHI PARKER Facility:[facility] Start: 08-04-2022 End: 08-04-2022 ambulatory Robert Hamilton Other [facility] Other Start: 08-04-2022 Office outpatient vi sit 25 minutes Robert Hamilton [facility] Start: 04-03-2022 Encounter for genera l adult medical examination without abnormal findings DR ROBERT CRUZ [facility] Start: 03-30-2022 End: 03-31-2022 ambulatory [...] 07-03-2018 End: 07-03-2018 Patient encounter procedure [facility] Start: 06-20-2018 End: 06-20-2018 Evaluation and management of inpatient [facility] Procedures Date Procedure Procedure Detail Performing Clinician Start: 06-07-2018 Antibody screen [facility] CCHETTI Plan of Treatment Date Care Activity Detail Author Comprehensive metabo lic 2000 panel - Serum or Plasma [facility] enter MG Breast - bilateral Diagnostic [facility] Payers Date Payer Category Payer Unknown 2022 [employer] [facility] [id number] 2019 Unknown [id number] 2015 Unknown [id number] 1959 Self-pay [id number] 1959 Unknown [id number] 2..840.1.854818.3.579.2.5 93 1959 Unknown [id number] 2..840.1.375952.3.579.2.5 93 1959 Unknown [id number] 2..840.1.486594.3.579.2.5 93 1959 Unknown [id number] 2..840.1.131207.3.579.2.5 93 1959 Unknown [id number] 2.16.840.1.918116.3.579.2.5 93 1959 Unknown [id number] 2.16.840.1.395458.3.579.2.5 93 1959 Unknown [id number] 2.16.840.1.927541.3.579.2.1 96 1959 Unknown [id number] 2.16.840.1.289784.3.579.2.1 96 1959 Unknown [id number] 2.16.840.1.538936.3.579.2.1 96 1959 Unknown [id number] 2.16.840.1.476413.3.579.2.1 96 1959 Unknown [id number] 2.16.840.1.048533.3.579.2.1 96 1959 Unknown [id number] 2.16.840.1.133348.3.579.2.1 96 1959 Unknown [id number] 2.16.840.1.019646.3.579.2.1 96 1959 Unknown [id number] 2.16.840.1.638418.3.579.2.7 27 Medicare Medicare [id number] Unknown [id number] 2.16.840.1.184171.3.579.2.5 93 Unknown [id number] Unknown [facility] PF [id number] Social History Date Type Detail Facility Sex Assigned At [facility] Other Start: 1960 Sex Assigned At Female [facility] Work Phone: Start: 06-25-2024 Sex Female (finding) [facility] Clinical Notes 08-04-2022 to 06-01-2023 Note [...] and without status migrainosus (ICD-10 - G43.719) [facility] Other 01-15-2024 Evaluation note* Encounter Date Diagnosis Assessment Notes Treatment Notes Treatment Clinical Notes Apr, Intractable chronic migraine without aura and without status migrainosus (ICD-10 - G43.719) [facility] Other 01-08-2024 Evaluation note* Encounter Date Diagnosis Assessment Notes Treatment Notes Treatment Clinical Notes Apr, Intractable chronic migraine without aura and without status migrainosus (ICD-10 - G43.719) [facility] Other 01-05-2024 Evaluation note* Encounter Date Diagnosis [...] Begin Amitriptyline Stop Tizanidine. MRI cervical spine [facility] Other 08-31-2023 Evaluation note* Encounter Date Diagnosis Assessment Notes Treatment Notes Treatment Clinical Notes Nov, Primary hypertension (ICD-10 - I10) [facility] Other 08-28-2023 Evaluation note* Encounter Date Diagnosis Assessment Notes Treatment Notes Treatment Clinical Notes Nov, Adverse effect of smooth muscle relaxant, subsequent encounter (ICD-10 - T44.3X5D) Avoid combination of Klonopin and Zanaflex when scheduled onsite case manager. May want to cut back on Zanaflex. [...] Pain in left shoulder (ICD-10 - M25.512) [facility] Other 06-30-2023 Evaluation note* Encounter Date Diagnosis Assessment Notes Treatment Notes Treatment Clinical Notes Sep, Type 2 diabetes mellitus with hyperglycemia, without long-term current use of insulin (ICD-10 - E11.65) [facility] Other 06-05-2023 Evaluation note* Encounter Date Diagnosis Assessment Notes Treatment Notes Treatment Clinical Notes Sep, Candidiasis, intertriginous (ICD-10 - B37.2) [facility] Other 04-12-2023 Evaluation note* Encounter Date Diagnosis [...] use, the patient reduces the risk for SD, CVA, HTN, cardiac dysrhythmias and sudden cardiac [...] Jul, Other specified hypothyroidism (ICD-10 - E03.8) [facility] Other Evaluation noteNo InformationNort [employer] Other Evaluation noteNo assessment information available [facility] Work Phone: Evaluation note* Diagnosis Onset Date Resolution Status Cervical pain acute Cervical spondylosis acute Cervical pain acute Cervical spondylosis acute Painful lumpy right breast a roberta [facility] Work Phone: History general Narrative - [...] LEFT HEART CATHETERIZATION 2016 Hospitalization History SEE [employer] Other History general Narrative - Reported* Type [...] Right knee arthroscopy 10/2022 Hospitalization History SEE [employer] Other Reason for referral (narrative)* Reason Evaluation of right knee pain Diagnosis 1 Strain of right knee , subsequent encounter (S86.999P) Referral Organization [facility] [place] [facility] bhupinder Referring Provider First Name Robert Referring Provider Last Name Hamilton Referring Provider Specialty Internal Me yoni Referred Provider Rishi Parker Jr Referred Provider Specialty Orthopedic S urgery Referral Priority Routine [facility] Other Reason for referral (narrative)* Reason Referral for neck pa in Diagnosis 1 Cervicalgia (M54.2) Diagnosis 2 Cervical spondylosis (M47.812) Referral Organization [facility] bhupinder Referring Provider First Name Robert Referring Provider Last Name Hamilton Referring Provider Specialty Internal Me dicine Referred Organization [facility] Referred Address [address], [place],[address] Referred Provider Specialty Pain Medicin e Referral Priority Routine General Notes Patient has hx of ce rvical discectomy and fusion and presented w/ persistent neck pain, which radiated upwards causing a headache. She is being referred for treatment with the pain clinic. Clinical Notes Include MRI [facility] Other Summary Purpose Family History Relationship Condition Age at Onset Recorded Date/T babar father Heart disease Unknown Diabetes mellitus Unknown sister Asthma Unknown Advance Directives Advance Directive Response Recorded Date/ Time Advance Directives No December 20, 2023 3:16pm Advance Directive Response Recorded Date/ Time Advance Directives No December 20, 2023 2:16pm Chief Complaint and Reason for Visit Chief Complaint wellness/migraines, neck pain Chief Complaint wellness/migraines, neck pain CC Adult Risk Stratification neck pain Reason for Visit Cervical pain Cervical spondylosis Cervical pain Cervical spondylosis Painful lumpy right breast Chief Complaint Admit Date bp concerns June 25, 2024 10:0 4am Additional Source Comments INFORMATION SOURCE (unrecogn ized section and content) DATE CREATED AUTHOR 06/20/2018 [facility] DATE CREATED AUTHOR AUTHOR'S ORGANIZ ATION 07/04/2018 [facility] DATE CREATED AUTHOR AUTHOR'S ORGANIZ ATION 09/18/2020 [facility] DATE CREATED AUTHOR AUTHOR'S ORGANIZ ATION 08/27/2022 [facility] DATE CREATED AUTHOR AUTHOR'S ORGANIZ ATION 04/18/[address] [facility] DATE CREATED AUTHOR AUTHOR'S ORGANIZ ATION 06/23/2024 [facility] REASON FOR VISIT (unrecogniz ed section and content) right knee painAdditional Me dicationRefillRefillsNo InformationWants in on HBPsleep study ordermamm resultsMigrainesLab orderMigrainesMRI resultsmigrainesMigrainesrefills Care Teams (unrecognized sec tion and content) Team Status: Active Member Role Status Hakeem Stanton MD Primary Care Provider Active Team Status: Inactive Member Role Status aHkeem Stanton MD Primary Care Provider Active S [...] February 24, 2024 End: February 24, 2024 Team Status: Active Member Role Status Hakeem Cruz DO Primary Care Provider Active Team Status: Active Member Role Status Hakeem Cruz DO Primary Care Provide r, Attending Provider Active Start: May 31, 2024 Team Status: Active Member Role Status Hakeem Cruz DO Primary Care Provide r, Attending Provider Active Start: June 01, 2024 Team Status: Inactive Member Role Status Hakeem Cruz DO Primary Care Provide r, Attending Provider Active Start: June 25, 2024 End: June 25, 2024 Goals (unrecognized section and content) Goals [...] BE BASED ON THE PRIMARY CLINICAL RECORDS. [facility]. provides no warranty or guarantee of the accuracy or completeness of information in this document.
[2024-06-27 12:26] LABS: Bilirubin Urine LARGE (NEGATIVE); Blood Urine NEGATIVE (NEGATIVE); Clarity Urine CLEAR (CLEAR); Color Urine YELLOW (YELLOW); Glucose Urine UA NEGATIVE (NEGATIVE); Ketones Urine TRACE mg/dL (NEGATIVE); Leukocyte Esterase Urine NEGATIVE (NEGATIVE); Nitrite Urine NEGATIVE (NEGATIVE); Protein Urine NEGATIVE (NEG/TRACE); Specific Gravity Urine 1.025 (1.005-1.025); Urobilinogen Urine 0.2 EU/dL (0.2-1.0); pH Urine 5.5 (5.0-9.0)
[2024-06-27 12:28] LABS: Urine Microscopic Indicated NO
[2024-06-27 12:52] LABS: Anion Gap 14.5; BUN Creatinine Ratio 20.6; Calcium 9.8 mg/dL (8.5-10.1); Carbon Dioxide 28.6 mmol/L (21.0-32.0); Chloride 101 mmol/L (98-107); Estimated GFR (African America 45 (>=60 mL/min/1.73m^2); Estimated GFR (Non-African Ame 37 (>=60 mL/min/1.73m^2); Glucose 66 mg/dL (74-106); Potassium 5.1 mmol/L (3.5-5.1); Sodium 139 mmol/L (136-145)
== END 2024-06-27 11:34 | disposition home or self-care (01) ==
LOC: LAB 11:35
PROVIDERS: PCP Internal Medicine; Visit Provider Orthopaedic Surgery
DX: Z01.812 Encounter for preprocedural laboratory examination (principal); Z01.818 Encounter for other preprocedural examination; Z22.322 Carrier or suspected carrier of Methicillin resistant Staphylococcus aureus
CPT/HCPCS: 36415; 80048; 81003; 87081; 93005

== ENCOUNTER 2024-06-30 13:59 | Emergency (ER) | payer OTHER, SELFPAY ==
[2024-06-30 14:00] VITALS: PULSE 72
--- OUTSIDE RECORDS SUMMARY | 2024-06-30 14:05 | XMS_ITS | CCD ---
Author Organization [facility] CliniSyva Care Team Providers Care Terra Cotta Mason Name Role Phone REECE LENTZIC New Admitting [...] adverse reactions to drug (disorder) 09-30-[address] [facility] Repository (2 sources) HYDROmorphone; Translations: [HYDROMORPHONE (BULK)] Drug Allergy 08-17-[address] [facility] Repository (20 sources) Latex; Translations: [LATEX] Propensity to adverse reactions to drug (disorder) 09-30-19 11 Unknown, Unknown Reaction [facility] Repository (2 sources) Meperidine; Translations: [MEPERIDINE (PF)] Drug Allergy 09-30-[address] [facility] Repository (2 sources) Povidone-Iodine; Translations: [POVIDONE-IODINE] Drug Allergy 10-21-[address] [facility] Repository (2 sources) SUMAtriptan; Translations: [SUMATRIPTAN SUCCINATE] Drug Allergy 09-30-[address] [facility] Repository (2 sources) INFLUENZA VACCINE TRI-SP 09-10; Translations: [INFLUENZA VACCINE TRI-SP 09-10] Propensity to adverse reactions to drug (disorder) 09-30-[address] [facility] Repository (3 sources) DHE; Translations: [DHE] Propensity to adverse reactions to drug (disorder) 10-24-[address] [facility] Repository (20 sources) HYDROmorphone Drug Allergy 12-20-19 24 Unknown, Unknown Reaction [facility] (20 sources) Iodine; Translations: [iodine] Drug Allergy 10-24-19 13 Unknown, Unknown Reaction [facility] Repository (20 sources) Meperidine Drug Allergy 12-20-19 24 Unknown, Unknown Reaction [facility] (20 sources) SUMAtriptan Drug Allergy 12-20-19 24 Unknown, Unknown Reaction [facility] (20 sources) Fluad Drug allergy 12-20-19 24 Unknown, Unknown Reaction [facility] (17 sources) DHEA Drug allergy Unknown [employer] Other (2 sources) HYDROmorphone; Translations: [Dilaudid] Drug Allergy 10-24-19 13 [facility] Repository (1 source) Meperidine Drug Allergy 10-24-19 13 [facility] Repository (2 sources) Plasmin; Translations: [Imitrex] Drug Allergy 10-24-19 13 [facility] Repository (12 sources) influenza A virus (H1N1) antigen / influenza A virus (H3N2) antigen / influenza B virus antigen Drug Allergy 11-21-19 14 Comment:FLU VACCINE bop[employer]fm [facility] [employer] Other (12 sources) Contraindication to Flu Injection Propensity to adverse reactions 03-07-20 14 Comment:advers e rxn/side effects [employer]op[employer] [employer] Other (3 sources) patient allergy list reviewed by nurse or physicia Propensity to adverse reactions 12-22-19 Comment:Done [employer] Other (3 sources) Calcium Drug Allergy 12-20-19 24 Unknown Reaction [facility] (3 sources) Calcium Carbonate Drug Allergy 12-20-19 24 Unknown Reaction [facility] (3 sources) prasterone (DHEA) Allergy to substance 12-20-19 Unknown Reaction [facility] (3 sources) Fluad Quadrivalent Allergy to substance 04-29-19 Comment:FLU VACCINE [facility] Comment on above: Onset Date: 11/21/19 14 (1 source) Meperidine; Translations: [Demerol HCl] Drug Allergy [facility] Repository (1 source) flu vaccines; Translations: [flu vaccines] Propensity to adverse reactions (disorder) [facility] Repository Medications Current Medications Medication Drug [...] Start: 09-30-2022 take 3 tablets by mo [facility] at bedtime clonazePAM 0.5 MG TAKE 3 [...] every two hours as needed for headache Maxalt-SUPERINTENDENT TRACK 10 MG 1 tablet Orally PRN headache, [...] Panel Informationon 06-01 Miscellaneous Test COMMENT . [facility] Comment on above: Test Ordered: [id number] Aerobic Cult, Extended IncubAerobic Cult, Extended Incub [...] STetracycline STrimethoprim/Sulfa SVancomycin SPerformed at: - [facility] [address] [id number] Director: Noam Haskins PhD, Phone: [phone] Basophils Auto (Bld) [#/Vol] on 05-31-2024 Basophils (Bld) [#/Vol] Automated basophil count 0.0-0.1 [facility] Basophils/100 WBC Auto (Bld) on 05-31-2024 Basophils/100 WBC (Bld) Automated basophil % 0.2-2.0 [facility] Eosinophils/100 WBC Auto (Bl d)on 05-31-2024 Eosinophils/100 WBC (Bld) Automated eosinophil % 0.9-7.0 [facility] Erythrocyte distribution wid th Auto (RBC) [Ratio]on 05-31-2024 Erythrocyte distribution width (RBC) [Ratio] Erythrocyte distribution width [Ratio] by Automated count 11.0-15.0 [facility] Hematocrit Auto (Bld) [Volum e fraction]on 05-31-2024 Hematocrit (Bld) [Volume fraction] Hematocrit [Volume Fraction] of Blood by Automated count 36.0-48.0 [facility] Hemoglobin [Mass/volume] in Bloodon 05-31-2024 Hemoglobin (Bld) [Mass/Vol] Hemoglobin [Mass/volume] in Blood 12.0-16.0 [facility] Laboratory - Hematology and Cell countson 05-31-2024 ESR (Bld) [Velocity] 7 mm/h <=30 [facility] Immature granulocytes/100 WBC (Bld) 0.2 % 0.0-0.5 [facility] Leukocytes [#/volume] correc chip for nucleated erythrocytes in Blood by Automated counon 05-31-2024 WBC corrected for nucl RBC Auto (Bld) [#/Vol] Leukocytes [#/volume] corrected for nucleated erythrocytes in Blood by Automated coun 4.0-11.0 [facility] Lymphocytes Auto (Bld) [#/Vo l]on 05-31-2024 Lymphocytes (Bld) [#/Vol] Lymphocytes [#/volume] in Blood by Automated count 1.2-3.8 [facility] Lymphocytes/100 WBC Auto (Bl d)on 05-31-2024 Lymphocytes/100 WBC (Bld) Lymphocytes/100 leukocytes in Blood by Automated count 20.5-60.0 [facility] MCH Auto (RBC) [Entitic mass ]on 05-31-2024 MCH (RBC) [Entitic mass] MCH [Entitic mass] by Automated count 26.7-34.0 [facility] MCHC Auto (RBC) [Mass/Vol]on 05-31-2024 MCHC (RBC) [Mass/Vol] MCHC [Mass/volume] by Automated count 29.9-35.2 [facility] MCV Auto (RBC) [Entitic vol] on 05-31-2024 MCV (RBC) [Entitic vol] MCV [Entitic volume] by Automated count 81.0-99.0 [facility] Monocytes Auto (Bld) [#/Vol] on 05-31-2024 Monocytes (Bld) [#/Vol] Automated blood monocyte count 0.3-0.8 [facility] Monocytes/100 WBC Auto (Bld) on 05-31-2024 Monocytes/100 WBC (Bld) Automated monocyte % 1.7-12.0 [facility] Neutrophils Auto (Bld) [#/Vo l]on 05-31-2024 Neutrophils (Bld) [#/Vol] Neutrophils [#/volume] in Blood by Automated count 1.4-6.5 [facility] Neutrophils/100 WBC Auto (Bl d)on 05-31-2024 Neutrophils/100 WBC (Bld) Automated neutrophil % 43.0-75.0 [facility] No Panel Informationon 05-31 C-Reactive Protein, Quantitative <0.50 mg/dL <=0.50 [facility] Eosinophils # (Auto) 0.1 10 3/uL 0.0-0.7 [facility] Immature Granulocyte # (Auto) 0.01 10 3/uL 0.00-0.03 [facility] Platelet mean volume Auto (B ld) [Entitic vol]on 05-31-2024 Platelet mean volume (Bld) [Entitic vol] Platelet mean volume [Entitic volume] in Blood by Automated count Low 9.5-13.5 [facility] Platelets Auto (Bld) [#/Vol] on 05-31-2024 Platelets (Bld) [#/Vol] Platelets [#/volume] in Blood by Automated count 150-450 [facility] RBC Auto (Bld) [#/Vol]on RBC (Bld) [#/Vol] Erythrocytes [#/volu me] in Blood by Automated count 4.20-5.40 [facility] Basophils Auto (Bld) [#/Vol] on 12-27-2023 Basophils (Bld) [#/Vol] 0.1 10 3/uL 0.0-0.1 [facility] Basophils/100 WBC Auto (Bld) on 12-27-2023 Basophils/100 WBC (Bld) 1.0 % 0.2-2.0 [facility] Cholesterol in LDL Calc [Mas s/Vol]on 12-27-2023 Cholesterol in LDL [Mass/Vol] 63.0 mg/dL [facility] Comment on above: <100 mg/dl [id number] 0-129 mg/dl NEAR OR ABOVE [id number] mg/dl BORDERLINE [id number] mg/dl HIGH>190 mg/dl VERY HIGH Cholesterol in VLDL Calc [Ma ss/Vol]on 12-27-2023 Cholesterol in VLDL [Mass/Vol] 45.8 mg/dL [facility] Eosinophils/100 WBC Auto (Bl d)on 12-27-2023 Eosinophils/100 WBC (Bld) 8.3 % High 0.9-7.0 [facility] Erythrocyte distribution wid th Auto (RBC) [Ratio]on 12-27-2023 Erythrocyte distribution width (RBC) [Ratio] 11.9 % 11.0-15.0 [facility] Estimated glomerular filtrat ion rate (GFR) non- Americanon 12-27-2023 GFR/1.73 sq M.predicted among non-blacks MDRD (S/P/Bld) [Vol rate/Area] 47 mL/min/{1.73_m2} Low >=60 [facility] Globulin Calc (S) [Mass/Vol] on 12-27-2023 Globulin (S) [Mass/Vol] 3.2 g/dL [facility] Glucose mean value [Mass/vol ume] in Blood Estimated from glycated hemoglobinon 12-27-2023 Average glucose Estimated from glycated hemoglobin (Bld) [Mass/Vol] 143 mg/dL [facility] Hematocrit Auto (Bld) [Volum e fraction]on 12-27-2023 Hematocrit (Bld) [Volume fraction] 39.7 % 36.0-48.0 [facility] Hemoglobin [Mass/volume] in Bloodon 12-27-2023 Hemoglobin (Bld) [Mass/Vol] 12.9 g/dL 12.0-16.0 [facility] Laboratory - Chemistry and C hemistry - challengeon 12-27-2023 Albumin [Mass/Vol] 3.7 g/dL 3.4-5.0 [facility] ALP [Catalytic activity/Vol] 61 U/L 46-116 [facility] ALT [Catalytic activity/Vol] 36 U/L 14-59 [facility] AST [Catalytic activity/Vol] 24 U/L 15-37 [facility] Bilirubin [Mass/Vol] 0.6 mg/dL 0.2-1.0 [facility] Calcium [Mass/Vol] 9.2 mg/dL 8.5-10.1 [facility] Chloride [Moles/Vol] 101 mmol/L 98-107 [facility] Cholesterol [Mass/Vol] 146 mg/dL <=200 [facility] Cholesterol in HDL [Mass/Vol] 38 mg/dL Low 40-60 [facility] Comment on above: > or =60 mg/dl - LOW CARDIOVASCULAR RISK<40 mg/dl - HIGH CARDIOVASCULAR RISK CO2 [Moles/Vol] 26.8 mmol/L 21.0-32.0 [facility] Creatinine [Mass/Vol] 1.17 mg/dL High 0.55-1.02 [facility] GFR/1.73 sq M.predicted MDRD (S/P/Bld) [Vol rate/Area] 56 mL/min/{1.73_m2} Low >=60 [facility] Glucose [Mass/Vol] 138 mg/dL High 74-106 [facility] Potassium [Moles/Vol] 4.5 mmol/L 3.5-5.1 [facility] Protein [Mass/Vol] 6.9 g/dL 6.4-8.2 [facility] Sodium [Moles/Vol] 138 mmol/L 136-145 [facility] Triglyceride [Mass/Vol] 229 mg/dL High <=150 [facility] TSH Qn 0.834 m[IU]/L 0.358-3.740 [facility] Urea nitrogen [Mass/Vol] 23.0 mg/dL High 7.0-18.0 [facility] Urea nitrogen/Creatinine [Mass ratio] 19.7 mg/mg [facility] Laboratory - Hematology and Cell countson 12-27-2023 HbA1c (Bld) [Mass fraction] 6.6 % High 4.5-6.2 [facility] Comment on above: ADA RECOMMENDED LIMI T 4.0 - 6.0ADA THERAPEUTIC TARGET < 7.0ACTION SUGGESTED> 7.0 Immature granulocytes/100 WBC (Bld) 0.4 % 0.0-0.5 [facility] Leukocytes [#/volume] correc chip for nucleated erythrocytes in Blood by Automated counon 12-27-2023 WBC corrected for nucl RBC Auto (Bld) [#/Vol] 5.2 10 3/uL 4.0-11.0 [facility] Lymphocytes Auto (Bld) [#/Vo l]on 12-27-2023 Lymphocytes (Bld) [#/Vol] 2.2 10 3/uL 1.2-3.8 [facility] Lymphocytes/100 WBC Auto (Bl d)on 12-27-2023 Lymphocytes/100 WBC (Bld) 42.1 % 20.5-60.0 [facility] MCH Auto (RBC) [Entitic mass ]on 12-27-2023 MCH (RBC) [Entitic mass] 28.5 pg 26.7-34.0 [facility] MCHC Auto (RBC) [Mass/Vol]on 12-27-2023 MCHC (RBC) [Mass/Vol] 32.5 g/dL 29.9-35.2 [facility] MCV Auto (RBC) [Entitic vol] on 12-27-2023 MCV (RBC) [Entitic vol] 87.8 fL 81.0-99.0 [facility] Monocytes Auto (Bld) [#/Vol] on 12-27-2023 Monocytes (Bld) [#/Vol] 0.3 10 3/uL 0.3-0.8 [facility] Monocytes/100 WBC Auto (Bld) on 12-27-2023 Monocytes/100 WBC (Bld) 6.4 % 1.7-12.0 [facility] Neutrophils Auto (Bld) [#/Vo l]on 12-27-2023 Neutrophils (Bld) [#/Vol] 2.2 10 3/uL 1.4-6.5 [facility] Neutrophils/100 WBC Auto (Bl d)on 12-27-2023 Neutrophils/100 WBC (Bld) 41.8 % Low 43.0-75.0 [facility] No Panel Informationon 12-26 Eosinophils # (Auto) 0.4 10 3/uL 0.0-0.7 [facility] Immature Granulocyte # (Auto) 0.02 10 3/uL 0.00-0.03 [facility] Platelet mean volume Auto (B ld) [Entitic vol]on 12-27-2023 Platelet mean volume (Bld) [Entitic vol] 9.6 fL 9.5-13.5 [facility] Platelets Auto (Bld) [#/Vol] on 12-27-2023 Platelets (Bld) [#/Vol] 190 10 3/uL 150-450 [facility] RBC Auto (Bld) [#/Vol]on RBC (Bld) [#/Vol] 4.52 10 6/uL 4.20-5.40 [facility] Serum or plasma albumin/glob ulin mass ratioon 12-27-2023 Albumin/Globulin [Mass ratio] 1.2 {ratio} [facility] Serum or plasma anion gap de terminationon 12-27-2023 Anion gap [Moles/Vol] 14.7 mmol/L Fi [facility] Serum or plasma total choles terol/high density lipoprotein (HDL) cholesterol mass desiree 12-27-2023 Cholesterol.total/Cho lesterol in HDL [Mass ratio] 3.8 {ratio} [facility] Comment on above: 3.3 - 4.4 [...] ligament. MENISCOFEMORAL: Normal meniscofemoral ligaments. OTHER: Tiny Presely's cyst. IMPRESSION: 1. Undersurface tear of the medial meniscus posterior horn/junction. 2. Mild strain of the medial collateral ligament. 3. Small periarticular degenerative osteophytes involving the articular margins of the medial and lateral compartments. 4. Tiny Presley's cyst. Electronically authenticated by: BERNY CANO Date: 2022-08-24 07:19 Normal [facility] CBC AUTO DIFFon 03-30-2022 BASO # 0.0 103/ul Normal 0.0-0.1 [facility] Comment on above: Performed By: #### C BC #### [facility] [address] [address] [address] Rc Foster Basophils/100 WBC (Bld) 0.4 % Normal 0.2-2.0 [facility] Comment on above: Performed By: #### C BC #### [facility] [address] [address] [address] Rc Foster EO # 0.3 103/ul Normal 0.0-0.7 [facility] Comment on above: Performed By: #### C BC #### [facility] [address] [address] [address] Rc Foster Eosinophils/100 WBC (Bld) 4.9 % Normal 0.9-7.0 [facility] Comment on above: Performed By: #### C BC #### [facility] [address] [address] [address] Rc Foster Erythrocyte distribution width (RBC) [Ratio] 12.2 % Normal 11.0-15.0 [facility] Comment on above: Performed By: #### C BC #### [facility] [address] [place] [address] Dr. Rc Foster Hematocrit (Bld) [Volume fraction] 39.8 % Normal 36.0-48.0 [facility] Comment on above: Performed By: #### C BC #### [facility] [address] [place] [address] Dr. Rc Foster Hemoglobin (Bld) [Mass/Vol] 13.1 g/dL Normal 12.0-16.0 [facility] Comment on above: Performed By: #### C BC #### [facility] [address] [place] [address] Dr. Rc Foster IG # 0.02 10e3/ul Normal 0.00-0.03 [facility] Comment on above: Performed By: #### C BC #### [facility] [address] [place] [address] Dr. Rc Foster IG % 0.4 % Normal 0.0-0.5 [facility] Comment on above: Performed By: #### C BC #### [facility] [address] [place] [address] Dr. Rc Foster LYMPH # 2.1 103/ul Normal 1.2-3.8 [facility] Comment on above: Performed By: #### C BC #### [facility] [address] [place] [address] Dr. Rc Foster Lymphocytes/100 WBC (Bld) 37.1 % Normal 20.5-60.0 [facility] Comment on above: Performed By: #### C BC #### [facility] [address] [place] [address] Dr. Rc Foster MANUAL DIFF REQ NO Normal [facility] Comment on above: Performed By: #### C BC #### [facility] [address] [place] [address] Dr. Rc Foster MCH (RBC) [Entitic mass] 28.7 pg Normal 26.7-34.0 [facility] Comment on above: Performed By: #### C BC #### [facility] [address] [place] [address] Dr. Rc Foster MCHC (RBC) [Mass/Vol] 32.9 g/dL Normal 29.9-35.2 [facility] Comment on above: Performed By: #### C BC #### [facility] [address] [place] [address] Dr. Rc Foster MCV (RBC) [Entitic vol] 87.1 fL Normal 81.0-99.0 [facility] Comment on above: Performed By: #### C BC #### [facility] [address] [address] [address] Rc Foster MONO # 0.4 103/ul Normal 0.3-0.8 [facility] Comment on above: Performed By: #### C BC #### [facility] [address] [place] [address] Dr. Rc Foster Monocytes/100 WBC (Bld) 6.7 % Normal 1.7-12.0 [facility] Comment on above: Performed By: #### C BC #### [facility] [address] [place] [address] Dr. Rc Foster NEUT # 2.9 103/ul Normal 1.4-6.5 [facility] Comment on above: Performed By: #### C BC #### [facility] [address] [place] [address] Dr. Rc Foster Neutrophils/100 WBC (Bld) 50.5 % Normal 43.0-75.0 [facility] Comment on above: Performed By: #### C BC #### [facility] [address] [place] [address] Dr. cR Foster Platelet mean volume (Bld) [Entitic vol] 9.7 fL Normal 9.5-13.5 [facility] Comment on above: Performed By: #### C BC #### [facility] [address] [place] [address] Dr. Rc Foster PLT 189 103/ul Normal 150-450 [facility] Comment on above: Performed By: #### C BC #### [facility] [address] [place] [address] Dr. Rc Foster RBC 4.57 106/ul Normal 4.20-5.40 [facility] Comment on above: Performed By: #### C BC #### [facility] [address] [address] [address] Rc Foster WBC 5.7 103/ul Normal 4.0-11.0 [facility] Comment on above: Performed By: #### C BC #### [facility] [address] [address] [address] Rc Foster GLYCOHEMOGLOBIN A1Con 2021 ADA RECOMMENDATION SEE BELOW Normal [facility] Comment on above: Result Comment: ADA RECOMMENDED LIMIT 4.0 - 6.0 ADA THERAPEUTIC TARGET < 7.0 ACTION SUGGESTED > 7.0 Performed By: #### A 1C #### [facility] [address] [place] [address] Dr. Rc Foster Glucose [Mass/Vol] 143 mg/dL Normal [facility] Comment on above: Performed By: #### A 1C #### [facility] [address] [address] [address] Rc Foster HbA1c (Bld) [Mass fraction] 6.6 % Critically high 4.5-6.2 [facility] Comment on above: Performed By: #### A 1C #### [facility] [address] [place] [address] Dr. Rc Foster LIPID PROFILEon 03-30-2022 CHOL-HDL RATIO NORM SEE BELOW Normal [facility] Comment on above: Result Comment: 3.3 - 4.4 LOW RISK 4.4 - 7.1 AVERAGE RISK 7.1 - 11.0 MODERATE RISK >11.0 HIGH RISK Performed By: #### T SH, CMP, LIPID ####[facility] [address] [address]Dr[address] Rc Foster Cholesterol [Mass/Vol] 184 mg/dL Normal <=200 [facility] Comment on above: Performed By: #### T SH, CMP, LIPID ####[facility] [address] [id number]. Rc Foster Cholesterol in HDL [Mass/Vol] 42 mg/dL Normal 40-60 [facility] Comment on above: Performed By: #### T SH, CMP, LIPID ####[facility] [address] [id number]. Rc Foster Cholesterol in LDL [Mass/Vol] 87.0 mg/dL Normal [facility] Comment on above: Performed By: #### T SH, CMP, LIPID ####[facility] [address] [id number]. Rc Foster Cholesterol.total/Cho lesterol in HDL [Mass ratio] 4.4 {ratio} Normal [facility] Comment on above: Performed By: #### T SH, CMP, LIPID ####[facility] [address] [id number]. Rc Foster HDL NORMAL > or = 60 mg/dl - LO W CARDIOVASCULAR RISK <40 mg/dl - HIGH CARDIOVASCULAR RISK Normal [facility] Comment on above: Performed By: #### T MARY JANE, CMP, LIPID ####[facility] [address] [id number]. Rc Foster LDL CALC NORMAL SEE BELOW Normal [facility] Comment on above: Result Comment: <100 mg/dl OPTIMAL 100 - 129 mg/dl NEAR OR ABOVE OPTIMAL 130 - 159 mg/dl BORDERLINE HIGH 160 - 189 mg/dl HIGH >190 mg/dl VERY HIGH Performed By: #### T SH, CMP, LIPID ####[facility] [id number] [id number]. Rc Foster Triglyceride [Mass/Vol] 275 mg/dL Critically high <=150 [facility] Comment on above: Performed By: #### T SH, CMP, LIPID ####[facility] [address] [id number]. Rc oFster VLDL CALC 55.0 mg/dL Normal [facility] Comment on above: Performed By: #### T SH, CMP, LIPID ####[facility] [address] [id number][address] Rc Foster PROF 14(COMP METB)on 022 Albumin [Mass/Vol] 4.0 g/dL Normal 3.4-5.0 [facility] Comment on above: Performed By: #### T SH, CMP, LIPID ####[facility] [id number] [address]Dr. Rc Foster Albumin/Globulin [Mass ratio] 1.1 {ratio} Normal [facility] Comment on above: Performed By: #### T SH, CMP, LIPID ####[facility] [address] [address]Dr. Rc Foster ALP [Catalytic activity/Vol] 71 U/L Normal 46-116 [facility] Comment on above: Performed By: #### T SH, CMP, LIPID ####[facility] [address] [address]Dr. Rc Foster ALT [Catalytic activity/Vol] 29 U/L Normal 14-59 [facility] Comment on above: Performed By: #### T SH, CMP, LIPID ####[facility] [id number] [place], [place] [address]Dr. Rc Foster Anion gap [Moles/Vol] 13.2 mmol/L Normal [facility] Comment on above: Performed By: #### T SH, CMP, LIPID ####[facility] [address] [place], [place] [address]Dr. Rc Foster AST [Catalytic activity/Vol] 17 U/L Normal 15-37 [facility] Comment on above: Performed By: #### T SH, CMP, LIPID ####[facility] [address] [place] [address]Dr. Rc Fsoter Bilirubin [Mass/Vol] 0.6 mg/dL Normal 0.2-1.0 [facility] Comment on above: Performed By: #### T SH, CMP, LIPID ####[facility] [address] [place] [address]Dr. Rc Foster Calcium [Mass/Vol] 9.0 mg/dL Normal 8.5-10.1 [facility] Comment on above: Performed By: #### T SH, CMP, LIPID ####[facility] [address] [place] [address]Dr. Rc Foster Chloride [Moles/Vol] 102 mmol/L Normal 98-107 [facility] Comment on above: Performed By: #### T SH, CMP, LIPID ####[facility] [address] [place] [address]Dr. Rc Foster CO2 [Moles/Vol] 27.3 mmol/L Normal 21.0-32.0 [facility] Comment on above: Performed By: #### T SH, CMP, LIPID ####[facility] [address] [place] [address]Dr. cR Foster Creatinine [Mass/Vol] 1.00 mg/dL Normal 0.55-1.02 [facility] Comment on above: Performed By: #### T SH, CMP, LIPID ####[facility] [address] [place] [address]Dr. Rc Foster EGFR-AF UZBEK >60 Normal >=60 [facility] Comment on above: Performed By: #### T MARY JANE, CMP, LIPID ####[facility] [address] [place] [address]Dr. Rc Foster EGFR-NON AF UZBEK 56 mL/min/1.73m2 Critically low >=60 [facility] Comment on above: Performed By: #### T MARY JANE, CMP, LIPID ####[facility] [address] [place] [address]Dr. Rc Foster Globulin (S) [Mass/Vol] 3.5 g/dL Normal [facility] Comment on above: Performed By: #### T MARY JANE, CMP, LIPID ####[facility] [address] [place] [address]Dr. Rc Foster Glucose [Mass/Vol] 159 mg/dL Critically high 74-106 [facility] Comment on above: Performed By: #### T SH, CMP, LIPID ####[facility] [address] [place] [address]Dr. Rc Foster Potassium [Moles/Vol] 4.5 mmol/L Normal 3.5-5.1 [facility] Comment on above: Performed By: #### T SH, CMP, LIPID ####[facility] [address] [place], [place] [address]Fi. Rc Foster Protein [Mass/Vol] 7.5 g/dL Normal 6.4-8.2 [facility] Comment on above: Performed By: #### T SH, CMP, LIPID ####[facility] [address] [place], [place] [address]Va. Rc Foster Sodium [Moles/Vol] 138 mmol/L Normal 136-145 [facility] Comment on above: Performed By: #### T SH, CMP, LIPID ####[facility] [address] [place], [place] [address]Kb. Rc Foster Urea nitrogen [Mass/Vol] 23.0 mg/dL Critically high 7.0-18.0 [facility] Comment on above: Performed By: #### T SH, CMP, LIPID ####[facility] [address] [place] [id number]. Rc Foster Urea nitrogen/Creatinine [Mass ratio] 23.0 mg/mg Normal [facility] Comment on above: Performed By: #### T SH, CMP, LIPID ####[facility] [address] [place], [place] [address]Gs. Rc Foster TSHon 03-30-2022 TSH 2.807 uIU/mL Normal 0.358-3.740 [facility] Comment on above: Performed By: #### T SH, CMP, LIPID ####[facility] [address] [place] [id number]. Rc Foster US THYROIDon 03-30-2022 US THYROID [...] by: BERNY CANO Date: 2022-03-30 11:03 Normal [facility] MAMM SCREEN 3D LEX CADon 03-19-2022 MAMM SCREEN 3D LEX CAD Patient: CARROLL HARDEN Exam Date: 03/19/2022 : 1960 Gender:F Ordering : DR ROBERT CRUZ D.O. Admission #: [id number] Family : Order #: [id number] CLICK HERE TO VIEW EXAM RADIOLOGY REPORT [...] Treatments None Family Cancers None LOCATION: The [facility] BREAST COMPOSITION: Scattered areas fibroglandular [...] Cano M.D. on 03/23/2022 at 11:59 Normal [facility] CBC AUTO DIFFon 11-27-2021 BASO # 0.0 103/ul Normal 0.0-0.1 [facility] Comment on above: Performed By: #### C BC #### [facility] [address] [place] [address] Dr. Rc Foster Basophils/100 WBC (Bld) 0.7 % Normal 0.2-2.0 [facility] Comment on above: Performed By: #### C BC #### [facility] [address] [place] [address] Dr. Rc Foster EO # 0.6 103/ul Normal 0.0-0.7 [facility] Comment on above: Performed By: #### C BC #### [facility] [address] [place] [address] Dr. Rc Foster Eosinophils/100 WBC (Bld) 10.3 % Critically high 0.9-7.0 [facility] Comment on above: Performed By: #### C BC #### [facility] [address] [place] [address] Dr. Rc Foster Erythrocyte distribution width (RBC) [Ratio] 12.4 % Normal 11.0-15.0 [facility] Comment on above: Performed By: #### C BC #### [facility] [address] [place] [address] Dr. Rc Foster Hematocrit (Bld) [Volume fraction] 41.2 % Normal 36.0-48.0 [facility] Comment on above: Performed By: #### C BC #### [facility] [address] [place] [address] Dr. Rc Foster Hemoglobin (Bld) [Mass/Vol] 13.4 g/dL Normal 12.0-16.0 [facility] Comment on above: Performed By: #### C BC #### [facility] [address] [place] [address] Dr. Rc Foster IG # 0.01 10e3/ul Normal 0.00-0.03 [facility] Comment on above: Performed By: #### C BC #### [facility] [address] [place] [address] Dr. Rc Foster IG % 0.2 % Normal 0.0-0.5 [facility] Comment on above: Performed By: #### C BC #### [facility] [address] [place] [address] Dr. Rc Foster LYMPH # 2.3 103/ul Normal 1.2-3.8 [facility] Comment on above: Performed By: #### C BC #### [facility] [address] [place] [address] Dr. Rc Foster Lymphocytes/100 WBC (Bld) 40.6 % Normal 20.5-60.0 [facility] Comment on above: Performed By: #### C BC #### [facility] [address] [place] [address] Dr. Rc Foster MANUAL DIFF REQ NO Normal [facility] Comment on above: Performed By: #### C BC #### [facility] [address] [place] [address] Dr. Rc Foster MCH (RBC) [Entitic mass] 28.8 pg Normal 26.7-34.0 [facility] Comment on above: Performed By: #### C BC #### [facility] [address] [place] [address] Dr. Rc Foster MCHC (RBC) [Mass/Vol] 32.5 g/dL Normal 29.9-35.2 [facility] Comment on above: Performed By: #### C BC #### [facility] [address] [place] [address] Dr. Rc Foster MCV (RBC) [Entitic vol] 88.6 fL Normal 81.0-99.0 [facility] Comment on above: Performed By: #### C BC #### [facility] [address] [place] [address] Dr. Rc Foster MONO # 0.4 103/ul Normal 0.3-0.8 [facility] Comment on above: Performed By: #### C BC #### [facility] [address] [place] [address] Dr. Rc Foster Monocytes/100 WBC (Bld) 7.6 % Normal 1.7-12.0 [facility] Comment on above: Performed By: #### C BC #### [facility] [address] [address] [address] Rc Foster NEUT # 2.3 103/ul Normal 1.4-6.5 [facility] Comment on above: Performed By: #### C BC #### [facility] [address] [address] [address] Rc Foster Neutrophils/100 WBC (Bld) 40.6 % Critically low 43.0-75.0 [facility] Comment on above: Performed By: #### C BC #### [facility] [address] [address] [address] Rc Foster Platelet mean volume (Bld) [Entitic vol] 9.6 fL Normal 9.5-13.5 [facility] Comment on above: Performed By: #### C BC #### [facility] [address] [place] [address] Dr. Rc Foster PLT 194 103/ul Normal 150-450 [facility] Comment on above: Performed By: #### C BC #### [facility] [address] [address] [address] Rc Foster RBC 4.65 106/ul Normal 4.20-5.40 [facility] Comment on above: Performed By: #### C BC #### [facility] [address] [place] [address] Dr. Rc Foster WBC 5.5 103/ul Normal 4.0-11.0 [facility] Comment on above: Performed By: #### C BC #### [facility] [address] [place] [address] Dr. Rc Foster GLYCOHEMOGLOBIN A1Con 2021 ADA RECOMMENDATION SEE BELOW Normal [facility] Comment on above: Result Comment: ADA RECOMMENDED LIMIT 4.0 - 6.0 ADA THERAPEUTIC TARGET < 7.0 ACTION SUGGESTED > 7.0 Performed By: #### A 1C #### [facility] [address] [address] [address] Rc Foster Glucose [Mass/Vol] 131 mg/dL Normal [facility] Comment on above: Performed By: #### A 1C #### [facility] [address] [place] [address] Dr. Rc Foster HbA1c (Bld) [Mass fraction] 6.2 % Normal 4.5-6.2 [facility] Comment on above: Performed By: #### A 1C #### [facility] [address] [place] [address] Dr. Rc Foster PROF CHEM 8 (BAS METB)on Anion gap [Moles/Vol] 15.2 mmol/L Normal [facility] Comment on above: Performed By: #### T MARY JANE, BMP #### [facility] [address] [place] [address] Dr. Rc Foster Calcium [Mass/Vol] 8.5 mg/dL Normal 8.5-10.1 [facility] Comment on above: Performed By: #### T MARY JANE, BMP #### [facility] [address] [place] [address] Dr. Rc Foster Chloride [Moles/Vol] 100 mmol/L Normal 98-107 [facility] Comment on above: Performed By: #### T MARY JANE, BMP #### [facility] [address] [place] [address] Dr. Rc Foster CO2 [Moles/Vol] 26.6 mmol/L Normal 21.0-32.0 [facility] Comment on above: Performed By: #### T MARY JANE, BMP #### [facility] [address] [place] [address] Dr. Rc Foster Creatinine [Mass/Vol] 1.15 mg/dL Critically high 0.55-1.02 [facility] Comment on above: Performed By: #### T MARY JANE, BMP #### [facility] [address] [place] [address] Dr. Rc Foster EGFR-AF UZBEK 58 mL/min/1.73m2 Critically low >=60 [facility] Comment on above: Performed By: #### T MARY JANE, BMP #### [facility] [address] [place] [address] Dr. Rc Foster EGFR-NON AF UZBEK 48 mL/min/1.73m2 Critically low >=60 [facility] Comment on above: Performed By: #### T SH, BMP #### [facility] [address] [place] [address] Dr. Rc Foster Glucose [Mass/Vol] 211 mg/dL Critically high 74-106 [facility] Comment on above: Performed By: #### T MARY JANE, BMP #### [facility] [address] [place] [address] Dr. Rc Foster Potassium [Moles/Vol] 4.8 mmol/L Normal 3.5-5.1 [facility] Comment on above: Performed By: #### T MARY JANE, BMP #### [facility] [address] [place] [address] Dr. Rc Foster Sodium [Moles/Vol] 137 mmol/L Normal 136-145 [facility] Comment on above: Performed By: #### T MARY JANE, BMP #### [facility] [address] [place] [address] Dr. Rc Foster Urea nitrogen [Mass/Vol] 33.0 mg/dL Critically high 7.0-18.0 [facility] Comment on above: Performed By: #### T MARY JANE, BMP #### [facility] [address] [place] [address] Dr. Rc Foster Urea nitrogen/Creatinine [Mass ratio] 28.7 mg/mg Normal [facility] Comment on above: Performed By: #### T MARY JANE, BMP #### [facility] [address] [place] [address] Dr. Rc Foster TSHon 11-27-2021 TSH 0.744 uIU/mL Normal 0.358-3.740 [facility] Comment on above: Performed By: #### T MARY JANE, BMP #### [facility] [address] [place] [address] Dr. Rc Foster SYMPTOMATIC COVID-19 ANTIGEN on 10-28-2021 EUA Statement SEE BELOW Normal [facility] Comment on above: Result Comment: This [...] revoked sooner. Performed By: #### C ELPIDIOS ####[facility] [address] [place] [address]Dr. Rc Foster SARS-CoV-2 (COVID-19) RNA YARED+probe Ql (Unsp spec) Negative Normal NEGATIVE [facility] Comment on above: Performed By: #### C VDAGS ####[facility] [address] [place] [address]Dr. Rc oFster GLYCOHEMOGLOBIN A1Con 2021 ADA RECOMMENDATION SEE BELOW Normal [facility] Comment on above: Result Comment: ADA RECOMMENDED LIMIT 4.0 - 6.0 ADA THERAPEUTIC TARGET < 7.0 ACTION SUGGESTED > 7.0 Performed By: #### A 1C #### [facility] [address] [place] [address] Dr. Rc Foster Glucose [Mass/Vol] 128 mg/dL Normal [facility] Comment on above: Performed By: #### A 1C #### [facility] [address] [address] [address] Rc Foster HbA1c (Bld) [Mass fraction] 6.1 % Normal 4.5-6.2 [facility] Comment on above: Performed By: #### A 1C #### [facility] [address] [place] [address] Dr. Rc Foster Discharge CCD Assessmenton 0 09-06-2020 Discharge CCD Assessment [facility] Patient: CARROLL HARDEN [address] [place] [address] MR#: [id number] DISCHARGE CCD ASSESSMENT : 58 Service Date: 09/06/20 1018 Discharge CCD Assessment Assessment Patient discharged home to continue exercises, pain medication, and wound care Electronically Signed eSign Date and Time Melyssa Flores 09/06/20 1019 Tera Hernandez MD Normal [facility] GLUCOSE METERon 09-06-2020 Glucose [Mass/Vol] 126 mg/dL High 70-99 [facility] Comment on above: Order Comment: CONSE RVATION Result Comment: Fast ing GLUCOSE reference range has been updated per (ADA) [place] [employer]'s recommendation. 07/18/2018 Performed By: #### L 500.84550 ####Test performed at: [place] [address] Glucose [Mass/Vol] 205 mg/dL High 70-99 [facility] Comment on above: Order Comment: CONSE RVATION Result Comment: Fast ing GLUCOSE reference range has been updated per (ADA) [place] [employer]'s recommendation. 07/18/2018 Insulin per sl scale Performed By: #### L 500.85181 #### Test performed at: [place] [address] Internal Med Progress Noteon 09-06-2020 Internal Med Progress Note [facility] Patient: CARROLL HARDEN [address] [place] [address] MR#: [id number] PROGRESS NOTE - Internal Medicine : 58 [...] Flanagan RES, Katarzyna MD 09/06/20 1134 Normal [facility] Orthopedic Progress Noteon 0 09-06-2020 Orthopedic Progress Note [facility] Patient: CARROLL HARDEN [address] [place] [address] MR#: [id number] PROGRESS NOTE - Orthopedic : 58 Service [...] RN 09/06/20 1022 Tera Hernandez MD Normal [facility] Anesthesia Noteon 09-05-2020 Anesthesia Note [facility] Patient: CARROLL HARDEN [address] [place], [place] [id number] MR#: [id number] ANESTHESIA NOTE : Service Date: 09/05/20 08 [...] Signed eSign Date and Time Krystian Akers [employer]ER TENDER 09/05/20812 Chu Glez MD Normal [facility] BASIC MET PANELon 09-05-2020 Anion gap [Moles/Vol] 12 mmol/L Normal 6-18 [facility] Comment on above: Performed By: #### L 500.92193, L500.80600 #### Test performed at: [address] [address] Calcium [Mass/Vol] 8.7 mg/dL Normal 8.5-10.1 [facility] Comment on above: Performed By: #### L 500.20707, L500.13549 #### Test performed at: [address] [address] Chloride [Moles/Vol] 101 mmol/L Normal 98-107 [facility] Comment on above: Performed By: #### L 500.93161, L500.26563 #### Test performed at: [address] [address] CO2 [Moles/Vol] 25 mmol/L Normal 21-32 [facility] Comment on above: Performed By: #### L 500.60192, L500.33455 #### Test performed at: [place] [address] Creatinine [Mass/Vol] 1.020 mg/dL Normal 0.550-1.020 [facility] Comment on above: Performed By: #### L 500.18273, L500.91618 #### Test performed at: [address] [address] Glucose [Mass/Vol] 264 mg/dL High 70-99 [facility] Comment on above: Result Comment: Fast ing GLUCOSE reference range has been updated per (ADA) [place] [employer]'s recommendation. 07/18/2018 Performed By: #### L 500.12254, L500.97927 #### Test performed at: [address] [address] OSM 289 mosm/kg Normal 270-300 [facility] Comment on above: Performed By: #### L 500.22183, L500.98808 #### Test performed at: [address] [address] Potassium [Moles/Vol] 4.5 mmol/L Normal 3.5-5.1 [facility] Comment on above: Performed By: #### L 500.36707, L500.30083 #### Test performed at: [address] [address] Sodium [Moles/Vol] 134 mmol/L Low 136-145 [facility] Comment on above: Performed By: #### L 500.14182, L500.01546 #### Test performed at: [address] [address] Urea nitrogen [Mass/Vol] 17 mg/dL Normal 7-18 [facility] Comment on above: Performed By: #### L 500.61752, L500.51351 #### Test performed at: [address] [address] GFR ESTIMATEon 09-05-2020 IF AMER > 60 Normal > 60 [facility] Comment on above: Result Comment: eGFR (Estimated GFR) Units of measure:mL/min/1.73 meters sq. *CALCULATION REVISED 02/11/2015;IDMS-traceable MDRD equation eGFR is derived from the reexpressed MDRD Study equation using the following parameters: serum creatinine, age, gender and race. An eGFR<60 mL/min/1.73m2 for >3 months is consistent with chronic kidney disease. Refer to KDOQI guidelines for clinical interpretation. Performed By: #### L 500.29323, L500.88271 #### Test performed at: [place] [address] IF non-AFR AMER 55 Low > 60 [facility] Comment on above: Performed By: #### L 500.83315, L500.94085 #### Test performed at: [address] [address] GLUCOSE METERon 09-05-2020 Glucose [Mass/Vol] 177 mg/dL High 70-99 [facility] Comment on above: Order Comment: CONSE RVATION Result Comment: Fast ing GLUCOSE reference range has been updated per (ADA) [place] Diabetes [employer]'s recommendation. 07/18/2018 Performed By: #### L 500.51385 #### Test performed at: [address] [address] Glucose [Mass/Vol] 310 mg/dL High 70-99 [facility] Comment on above: Result Comment: Fast ing GLUCOSE reference range has been updated per (ADA) [place] Diabetes [employer]'s recommendation. 07/18/2018 Insulin per sl scale Performed By: #### L 500.70683 ####Test performed at: [address] [address] Glucose [Mass/Vol] 281 mg/dL High 70-99 [facility] Comment on above: Result Comment: Fast ing GLUCOSE reference range has been updated per (ADA) [place] [employer]'s recommendation. 07/18/2018 Insulin per sl scale Performed By: #### L 500.03670 #### Test performed at: [place] [address] Glucose [Mass/Vol] 105 mg/dL High 70-99 [facility] Comment on above: Result Comment: Fast ing GLUCOSE reference range has been updated per (ADA) [place] Diabetes [employer]'s recommendation. 07/18/2018 Performed By: #### L 500.00691 #### Test performed at: [place] [address] HGB AND HCTon 09-05-2020 Hematocrit (Bld) [Volume fraction] 37.5 % Normal 36.0-48.0 [facility] Comment on above: Performed By: #### L 200.26023 #### Test performed at: [place] [address] Hemoglobin (Bld) [Mass/Vol] 12.5 g/dL Normal 12.0-15.0 [facility] Comment on above: Performed By: #### L 200.97831 #### Test performed at: [place] [address] Internal Med Progress Noteon 09-05-2020 Internal Med Progress Note [facility] Patient: CARROLL HARDEN [address] [place] [address] MR#: [id number] PROGRESS NOTE - Internal Medicine : 58 [...] input. Disc (more content not included)... Normal [facility] OT Therapy Recommendationson 09-05-2020 OT Therapy Recommendations [facility] Patient: CARROLL HARDEN [address] [place], [place] [id number] MR#: [id number] OT THERAPY RECOMMENDATIONS : 58 Service Date: 09/05/20 151 Therapy Recommendations Therapy Recommendations Recommendations OT evaluation completed. OT recommends HOME with FAmily assist. No further acute OT needs are indicated at this time. Electronically Signed eSign Date and Time Trupti Rojas OT 09/05/20 1512 Normal [facility] Orthopedic Progress Noteon 0 09-05-2020 Orthopedic Progress Note [facility] Patient: CARROLL HARDEN [address] [place], [place] [address] MR#: [id number] PROGRESS NOTE - Orthopedic : 58 Service [...] KHAN 09/05/20 1429 Tera Hernandez MD Normal [facility] PT Therapy Recommendationson 09-05-2020 PT Therapy Recommendations [facility] Patient: CARROLL HARDEN [address] [place] [address] MR#: [id number] PT THERAPY RECOMMENDATIONS : 58 Service Date: 09/05/20 0914 Therapy Recommendations Therapy Recommendations Recommendations PT eval complete. No further acute PT needs. Recommend d/c home /c family assist. Electronically Signed eSign Date and Time Tiffanie Bashir PT 09/05/20 0914 Normal [facility] z OT Inpatient Discharge Not juan 09-05-2020 z OT Inpatient Discharge Note [facility] Patient: CARROLL HARDEN [address] [place] [id number] MR#: [id number] OT INPATIENT DISCHARGE NOTE : 58 Service [...] Time Trupti Rojas OT 09/05/20 1534 Normal [facility] z OT Inpatient Evaluationon 09-05-2020 z OT Inpatient Evaluation [facility] Patient: CARROLL HARDEN [address] [place] [address] MR#: [id number] OT INPATIENT EVALUATION : 58 Inpatient OT HPI Date of Service 09/05/20 Time In: 1401 Time Out: 1412 Total Treatment Time (Mins) 11 Visit Reason LATERAL RECESS STENOSIS W/ RADICULOPATHY Surgery Type/Date s/p L L4-5 LAmi, foraminotomy, decompression on 09.04.20/ Lumbar spine precautions Referral Date 09/04/20 Tx Diagnosis: LOW BACK PAIN Insurance Name [employer] [place] [facility] [place] Pt is a left hand [...] 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 Objective Precautions [...] Excellent Nader (more content not included)... Normal [facility] z PT Inpatient Discharge Not juan 09-05-2020 z PT Inpatient Discharge Note [facility] Patient: CARROLL HARDEN [address] [place] [id number] MR#: [id number] PT INPATIENT DISCHARGE NOTE : 58 Service [...] Time Tiffanie Bashir PT 09/05/20 1139 Normal [facility] z PT Inpatient Evaluationon 09-05-2020 z PT Inpatient Evaluation [facility] Patient: CARROLL HARDEN [address] [place] [address] MR#: [id number] PT INPATIENT EVALUATION : 58 Service Date: 09/05/20 0928 Inpatient PT HPI Date of Service 09/05/20 Time In: 0845 Time Out: 0907 Total Treatment Time (Mins) 22 Room Number 624 Visit Reason LATERAL RECESS STENOSIS W/ RADICULOPATHY Surgery Type: L L4-5 lami, foraminotomy, decompression Surgery Date: 09/04/20 Referral Date 09/04/20 Tx Diagnosis: LOW BACK PAIN Insurance Name [facility] [place] [facility] [place] Course 60 y.o female at [facility] for above sx d/t lateral recess stenosis [...] posture. 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 Pt agreeable to use of her [...] Time Tiffanie Bashir PT 09/05/20 1502 Normal [facility] GLUCOSE METERon 09-04-2020 Glucose [Mass/Vol] 94 mg/dL Normal 70-99 [facility] Comment on above: Result Comment: Fast ing GLUCOSE reference range has been updated per (ADA) [place] [employer]'s recommendation. 07/18/2018 Performed By: #### L 500.22247 ####Test performed at: [place] [address] Internal Medicine Consultati onon 09-04-2020 Internal Medicine Consultation [facility] Patient: CARROLL HARDEN [address] [place] [address] MR#: [id number] CONSULTATION - Internal Medicine : 58 Service [...] of Systems (more content not included)... Normal [facility] OPERATIVE REPORTon OPERATIVE REPORT NAME: CARROLL HARDEN MR#: [id number] SURGEON: Tera Hernandez MD DATE OF SURGERY: [...] there were no complications. TERA HERNANDEZ MD [facility] PT NAME: CARROLL HARDEN MR#: [id number] [address] [place] [address] ACCT: [id number] : 58 OPERATIVE REPORT JFS/MODL/[id number] E/S: Tera Hernandez MD 09/18/20 1207 Electronically Signed [facility] PT NAME: CARROLL HARDEN MR#: [id number] [address] [place], [place] [id number] ACCT: [id number] : 58 OPERATIVE REPORT Normal [facility] Primary Residenton 1 Primary Resident [facility] Pt Name: CARROLL HARDEN MR#: [id number] [address] [place] [address] ACCT: [id number] [place] [id number] : 58 Service Date: 09/04/20 1603 Primary Resident/Call Primary Resident: [id number] [address] After Hours Call: [phone] Red Team Electronically Signed eSign Date and Time Ana Flanagan RES 09/16/20 1521 Normal [facility] LUMBAR SPINE 2 OR 3 VIEWSon 09-03-2020 LUMBAR SPINE 2 OR 3 VIEWS STUDY: LUMBAR SPINE 2 OR 3 VIEWS; 09/04/2020 2:57 pm INDICATION: LEFT L4-L5 LAMINECTOMY,FORAMINOTOMY ,DECOMPRESSION. COMPARISON: None. ACCESSION NUMBER(S): [id number] ORDERING CLINICIAN: Tera Hernandez FINDINGS: Intraoperative fluoroscopy of the lumbar spine demonstrates surgical instruments posterior to L5. IMPRESSION: As above Normal [facility] CHEST PA/AP & LATERALon CHEST PA/AP & LATERAL STUDY: CHEST PA/AP LATERAL; 08/25/2020 11:00 am INDICATION: SOB/PAT. COMPARISON: None. ACCESSION NUMBER(S): [id number] ORDERING CLINICIAN: Madelyn Leslie FINDINGS: The lungs are clear without pleural effusion. Normal heart size, mediastinum, elzbieta, and pulmonary vasculature. IMPRESSION: No active disease in the chest. Normal [facility] CONSULTATION REPORTon 2020 CONSULTATION REPORT NAME: CARROLL HARDEN MR#: [id number] NON CDL DRIVER: Madelyn Leslie MD DATE OF CONSULTATION: 08/25/2020 [...] pulse ox is 98% on room air. [facility] PT NAME: CARROLL HARDEN MR#: [id number] [address] [place] [address] ACCT: [id number] : 58 CONSULTATION HEENT: Atraumatic head. 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 IMPRESSION: 1. Preop clearance for L4-L5 disk [...] courtesy of this consultation. MEANDRZEJ LESLIE MD MS/MODL/[id number] E/S: Madelyn Leslie MD 08/26/20 1750 Electronically Signed [facility] PT NAME: CARROLL HARDEN MR#: [id number] [address] [place] [address] ACCT: [id number] : 58 CONSULTATION Normal [facility] LUMB SP COMP W FLEX/EXT 6 VW S>on 08-08-2020 LUMB SP COMP W FLEX/EXT 6 VWS> STUDY: LUMB SP COMP W FLEX/EXT 6 VWS>; 08/08/2020 9:43 am INDICATION: BACK PAIN. COMPARISON: No available comparisons. ACCESSION NUMBER(S): [id number] ORDERING CLINICIAN: Tera Hernandez TECHNIQUE: 6 views [...] L5-S1 level. No evidence of instability.. Normal [facility] XR SHLDR >/=3V AP/RUSH AP/OTH R [...] on Jul 03 2018 10:17AM EST [id number] [facility] ANES Holly 06-20-2018 ANES POST HNO ID: [id number] Author: Rohit Velarde Service: Anesthesiology Author Type: [...] ANES PREOPon 06-20-2018 ANES PREOP HNO ID: [id number] Author: Rohit Velarde Service: Anesthesiology Author Type: [...] 5-30 mL/hr INTRAVENOUS CONTINUOUS Isreal Mccabe (Santos) [place] ceFAZolin iv piggyback 2 g in D5W [...] June 20, 2018 TIME: 9:35 AM CSN: [id number] [facility] BRIEF OP NOTon 06-20-2018 BRIEF OP NOT HNO ID: [id number] Author: Kusum Francisco Service: Orthopaedic Surgery Author Type: Resident Type: Brief Op Note Filed: 06/20/2018 5:49 PM Note Text: BRIEF OP NOTE LOG ID: [id number] Surgery/Procedure Date: 06/20/2018 Incision/Procedure Start Time: 11:18 AM Incision Close/Procedure End Time: 1:17 PM Surgeon(s)/Proceduralist (s) and Farm Equipment Engine Mechanic(s): Surgeon(s) and Role: * Jenna Lentz - [...] CASE MANAGEMon 06-20-2018 CASE MANAGEM HNO ID: [id number] Author: May Herrera (Sw) Service: Care Management Author Type: Managed Care Director Type: Care Mgt Progress Note Filed: 06/20/2018 [...] is pcp summary of care sent via psychiatric () Nurse to provide discharge instructions. TRANSPORTATION ARRANGEMENTS: Car Spouse ADDITIONAL CONTACT RESOURCES: Needs Prior to Discharge: Ready for Discharge Appointments for Next 45 Days Date Time Provider Location Dept Phone 07/03/2018 10:00 AM CAROLA BAPTISTE AT [phone] 07/03/2018 10:30 AM GABRIEL CANTU) [place] AT [phone] 07/31/2018 2:15 PM JENNA LENTZ AT [phone] Pt to be discharged home to follow up as above. SIGNATURE: DARIO Saini PATIENT NAME: Carroll Harden DATE: June 20, 2018 TIME: 5:31 PM PAGER/CONTACT #: [id number] [facility] CASE MGT INIT DARYLon 2018 CASE MGT INIT DARYL HNO ID: [id number] Author: May Herrera (Sw) Service: Care Management Author Type: Managed Care Director Type: Care Mgt Initial Assessment Filed: 06/20/2018 5:31 PM Note Text: CARE MANAGEMENT: ASSESSMENT AND DISCHARGE PLAN SERVICE DATE: 06/20/2018 SERVICE TIME: 5:27p PRIMARY CARE PHYSICIAN: Robert Cruz MD ADMISSION STATUS: Inpatient Needs Prior to Discharge: Ready for Discharge MEDICAL: Patient/Poiser Stated Goals: To improve my functional status [...] None Has the Patient Been in a Jail Facility in the Past 30 days? 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 O.Therapy recommend home. Spouse visiting at bedside and will transport pt home later today.Further discharge needs not anticipated.SW/TCC to follow to assist with plans for discharge. SIGNATURE: DARIO Saini PATIENT NAME: Carroll Harden DATE: June 20, 2018 TIME: 5:27 PM PAGER/CONTACT #: [phone] [facility] CONSULTon 06-20-2018 CONSULT HNO ID: [id number] Author: Dulce Green Service: General Internal Medicine [...] Disp: Rfl: 06/19/2018 at 0630 rizatriptan (MAXALT SUPERINTENDENT TRACK) 10 mg disintegrating tablet DISSOLVE 1 TABLET [...] care of your patient. Dulce Green, JOSE E.CREELER June 20, 2018 4:[address] [facility] NURSING PROGon 06-20-2018 Protein mass conc HNO ID: [id number] Author: Fela (Rn) FLETCHER Phillips Service: (none) Author Type: Registered Nurse Type: Nursing Progress Note Filed: 06/20/2018 7:39 PM Note Text: Nursing Progress Note Patient Name: Carroll Harden Patient Location: [place] [address]/ [place]-* Daily Note: 1545. Care assumed. Pt [...] at bedside. 1720. Dr. Blake and Dulce GUEST SERVICES ASSOCIATE at bedside, plan is to stay for [...] [facility] Protein mass conc HNO ID: [id number] Author: Wendy ValenciaRn) FLETCHER Underwood Service: Nursing Author Type: Registered Nurse Type: Nursing Progress Note Filed: 06/20/2018 10:20 AM Note Text: Nursing Progress Note Patient Name: Carroll Harden Patient Location: SUR[facility]ERY [facility] Daily Note:Right interscalene nerve block with ultrasound guidance with Dr. Velarde and Dr. Marlow at bedside. Patient tolerated procedure well, VSS, will continue to monitor as we wait for OR team. Resting comfortably with no complaints of pain at this time. This note was completed by: Wendy Underwood RN [facility] OPERATIVE NOon 06-20-2018 OPERATIVE NO HNO ID: [id number] Author: Jenna Lentz Service: Orthopaedic Surgery Author Type: Physician Type: Operative Report Filed: 06/20/2018 1:25 PM Note Text: [place] [address] [place] OPERATIVE [facility]PORT [id number] DATE: 06/20/2018 (11:18am-1:17pm) AGE: 58 SURGEON 1: Jenna Lentz M.D. INSPECTOR MACHINE PARTS: 1. Augie Coates M.D. 2. Kusum Prasad M.D. 3. Mundo Pablo OPERATION: Right total shoulder arthroplasty, biceps tenodesis. ANESTHESIA: General anesthesia with regional interscalene nerve block for postoperative pain control. PREOPERATIVE DIAGNOSIS: Right shoulder primary glenohumeral osteoarthritis. POSTOPERATIVE DIAGNOSIS: Right shoulder primary glenohumeral osteoarthritis, biceps tendinopathy. OPERATIVE INDICATIONS: The patient is a 58 year oldxab-zxjp-rya right-hand dominant white female who has a [...] rotator interval stitch was then passed in jwexxp-bv-twaib fashion with a #2 Ticron suture and tied down to close the lateral rotator interval and set the osteotomy superiorly. The two #2 Fiberwire sutures coming out of the bicipital groove were then sequentially passed in a mijrpp-jj-ogtsu fashion medial to the horizontal mattress and [...] PT EDon 06-20-2018 PT ED HNO ID: [id number] Author: Cindy ValenciaRnTyesha Griffin RN Service: (none) [...] Signed By: Cindy Griffin RN In Department: [facility] SURGICAL SERVICES [facility] THERAPY NTon 06-20-2018 THERAPY NT HNO ID: [id number] Author: Abi Phillips Service: Occupational Therapy Author Type: Occupational Therapist Type: Therapy (PT/OT/Speech/Resp) Filed: 06/20/2018 4:59 PM Note Text: Occupational Therapy Evaluation SERVICE DATE: 06/20/2018 SERVICE TIME: 1550 to 1640 ROOM: [facility] FL-523-P Recommended Discharge Disposition: Home Anticipated Discharge [...] daily living (ADL) Interventions Provided: Evaluation;Therapeutic Exercise (41245);Self Jail Management (62164) $ Evaluation-Low (70325) Billed Units: 1 unit Therapeutic Exercise (09314) Treatment Minutes: 10 1 unit Skilled Intervention(s): Education in Self Jail Management (85986) Treatment Minutes: 28 2 units Skilled Intervention(s): [...] Environment Patient Lives With: Spouse Assistance Available: multimedia coordinator Number Of Stairs To Bed/Bath: 0 Equipment [...] PROGon 06-09-2018 Protein mass conc HNO ID: [id number] Author: Ivana (Rn) FLETCHER Heller Service: Nursing [...] 2018 11:10 AM Addendum 06/15/18 EKG IN [facility] FINAL Ivana Heller RN June 15, 2018 4:39 PM Normal [facility] Type and SCR (30D)on 019 ABO/RH(D) Positive Normal [facility] HOSPon 04-28-2018 HOSP Patient:Adalberto Harden MRN: Height:5' 2 (1.575 m) Weight:186 lb (84.369 kg) Outpatient Medications as of 06/20/18: calcium phosphate dibas/vit D3 (VITAMIN D, WITH CALCIUM, ORAL) docusate sodium (COLACE) 100 mg capsule aspirin, enteric coated (ECOTRIN LOW STRENGTH) 81 mg EC tablet oxyCODONE-acetaminophen (PERCOCET) 5-325 mg tablet rizatriptan (MAXALT SUPERINTENDENT TRACK) 10 mg disintegrating tablet mupirocin (BACTROBAN) 2 [...] 46.0 36.0 Progress Notes (RADIO CT SCAN [facility]): RT Lillian, Tech 06/07/2018 10:04 [...] Lillian June 07, 2018 9:[address] [facility] Vital Signs Date Time Vital Sign Value Performing Clinician Facility 06-25-2024 10:11-0500 Body temperature 97.3 [degF] [facility] 06-25-2024 10:11-0500 Diastolic blood pressure 76 mm[Hg] [facility] 06-25-2024 10:11-0500 Heart rate 54 /min [facility] 06-25-2024 10:11-0500 Respiratory rate 16 /min [facility] 06-25-2024 10:11-0500 SaO2% (BldA) [Mass fraction] 98 % [facility] 06-25-2024 10:11-0500 Systolic blood pressure 119 mm[Hg] [facility] 06-25-2024 10:07-0500 Body height 154.94 cm [facility] 06-25-2024 10:07-0500 Body mass index (BMI) [Ratio] 32.9 kg/m2 [facility] 06-25-2024 10:07-0500 Body weight 79.15 kg [facility] 02-24-2024 14:13-0400 Body height 154.94 cm [facility] 02-24-2024 14:13-0400 Body mass index (BMI) [Ratio] 33.1 kg/m2 [facility] 02-24-2024 14:13-0400 Body temperature 96 [degF] [facility] 02-24-2024 14:13-0400 Body weight 79.6 kg [facility] 02-24-2024 14:13-0400 Diastolic blood pressure 84 mm[Hg] [facility] 02-24-2024 14:13-0400 Heart rate 66 /min [facility] 02-24-2024 14:13-0400 Systolic blood pressure 159 mm[Hg] [facility] 12-20-2023 15:35-0400 Body height 154.94 cm [facility] 12-20-2023 15:35-0400 Body mass index (BMI) [Ratio] 33.8 kg/m2 [facility] 12-20-2023 15:35-0400 Body weight 81.19 kg [facility] 12-20-2023 15:35-0400 Diastolic blood pressure 80 mm[Hg] [facility] 12-20-2023 15:35-0400 Heart rate 78 /min [facility] 12-20-2023 15:35-0400 Respiratory rate 12 /min [facility] 12-20-2023 15:35-0400 Systolic blood pressure 134 mm[Hg] [facility] 04-29-2023 09:00-0500 Body height 154.94 cm Robert Ball Other [facility] Other 04-29-2023 09:00-0500 Body mass index (BMI) [Ratio] 33.14 kg/m2 Robert Ball Other [facility] Other 04-29-2023 09:00-0500 Body weight 79.56 kg Robert Ball Other [facility] Other 04-29-2023 09:00-0500 Diastolic blood pressure 89 mm[Hg] Robert Ball Other [facility] [facility] Other 04-29-2023 09:00-0500 Respiratory rate 12 /min Robert Ball Other [facility] [facility] Other 04-29-2023 09:00-0500 Systolic blood pressure 155 mm[Hg] Robert Ball Other [facility] [facility] Other 12-20-2022 13:45-0400 Body height 154.94 cm Robert Ball Other [facility] Other 12-20-2022 13:45-0400 Body mass index (BMI) [Ratio] 34.12 kg/m2 Robert Ball Other [facility] [facility] Other 12-20-2022 13:45-0400 Body weight 81.92 kg Robert Ball Other [facility] Other 12-20-2022 13:45-0400 Diastolic blood pressure 96 mm[Hg] Robert Ball Other [facility] [facility] Other 12-20-2022 13:45-0400 Respiratory rate 12 /min Robert Ball Other [facility] [facility] Other 12-20-2022 13:45-0400 Systolic blood pressure 179 mm[Hg] Robert Ball Other [facility] Other 08-04-2022 09:45-0400 Body height 154.94 cm Robert Ball Other [facility] Other 08-04-2022 09:45-0400 Body mass index (BMI) [Ratio] 33.33 kg/m2 Robert Ball Other [facility] [facility] Other 08-04-2022 09:45-0400 Body weight 80.02 kg Robert Ball Other [facility] [facility] Other 08-04-2022 09:45-0400 Diastolic blood pressure 77 mm[Hg] Robert Ball Other [facility] [facility] Other 08-04-2022 09:45-0400 Respiratory rate 12 /min Robert Ball Other [facility] Other 08-04-2022 09:45-0400 Systolic blood pressure 128 mm[Hg] Robert Ball Other [employer] Other Encounters Encounter Date Encounter Type Care Provider Facility Start: 06-25-2024 End: 06-25-2024 ambulatory [facility] Work Phone: Start: 06-25-2024 End: 06-25-2024 Patient encounter procedure [facility] Physician [facility] Work Phone: Start: 06-21-2024 ambulatory [facility] Facility:[facility] Start: 06-01-2024 Non-patient / Non-visit [facility] Work Phone: Start: 05-31-2024 Non-patient / Non-visit [facility] Physician [facility] Work Phone: Start: 04-09-2024 End: 04-09-2024 ambulatory Miriam Barron MD Facility: [facility] Start: 02-24-2024 End: 02-24-2024 ambulatory [facility] Work Phone: Start: 02-24-2024 End: 02-24-2024 Patient encounter procedure [facility] Physician [facility] Work Phone: Start: 02-22-2024 Non-patient / Non-visit [facility] Physician [facility] Work Phone: Start: 12-27-2023 Non-patient / Non-visit [facility] Physician [facility] Work Phone: Start: 12-20-2023 Patient encounter status [facility] Start: 12-20-2023 End: 12-20-2023 ambulatory [facility] Work Phone: Start: 12-20-2023 End: 12-20-2023 Patient encounter procedure [facility] Work Phone: Start: 09-26-2023 End: 09-26-2023 ambulatory Miriam Barron MD Facility: [facility] Start: 08-15-2023 End: 08-15-2023 ambulatory Miriam Barron MD Facility: [facility] Start: 08-08-2023 End: 08-08-2023 ambulatory Miriam Barron MD Facility: [facility] Start: 06-27-2023 End: 06-27-2023 ambulatory Miriam Barron MD Facility: [facility] Start: 06-06-2023 End: 06-06-2023 ambulatory Miriam Barron MD Facility: [facility] Start: 06-01-2023 End: 06-01-2023 ambulatory Robert Cruz Other [employer] Other Start: 06-01-2023 Telephone encounter Robert CHAVARRIA [facility] Start: 05-23-2023 End: 05-23-2023 ambulatory Miriam Barron MD Facility: [facility] Start: 05-13-2023 End: 05-13-2023 ambulatory Robert Cruz Other [employer] Other Start: 05-13-2023 Telephone encounter Robert CHAVARRIA [facility] Start: 05-09-2023 End: 05-09-2023 ambulatory Robert Cruz Other [facility] [facility] Other Start: 05-09-2023 Telephone encounter Robert CHAVARRIA [facility] Start: 05-04-2023 End: 05-04-2023 ambulatory Robert Cruz Other [employer] Other Start: 05-04-2023 Telephone encounter Robert Cruz [facility] Start: 05-02-2023 End: 05-02-2023 ambulatory Robert Cruz Other [employer] Other Start: 05-02-2023 Telephone encounter Robert CHAVARRIA [facility] Start: 04-29-2023 End: 04-29-2023 ambulatory Robert Cruz Other [employer] Other Start: 04-29-2023 Office outpatient vi sit 15 minutes Robert Hamilton [facility] Start: 04-04-2023 End: 04-04-2023 ambulatory Robert Cruz Other [facility] [facility] Other Start: 04-04-2023 Telephone encounter Robert CHAVARRIA [facility] Start: 01-24-2023 End: 01-24-2023 ambulatory Robert Cruz Other [facility] [facility] Other Start: 01-24-2023 Telephone encounter Robert Cruz [facility] Start: 12-23-2022 End: 12-23-2022 ambulatory Robert Ball Other [facility] [facility] Other Start: 12-23-2022 Telephone encounter Robert Cruz [facility] Start: 12-20-2022 End: 12-20-2022 ambulatory Robert Cruz Other [facility] [facility] Other Start: 12-20-2022 Office outpatient vi sit 15 minutes Robert Cruz [facility] Start: 12-17-2022 End: 12-17-2022 ambulatory Robert Cruz Other [facility] Other Start: 12-17-2022 Telephone encounter Robert Cruz [facility] Start: 11-08-2022 End: 11-08-2022 ambulatory Robert Cruz Other [employer] Other Start: 11-08-2022 Telephone encounter Robert Cruz [facility] Start: 10-22-2022 End: 10-22-2022 ambulatory Robert Cruz Other [facility] [facility] Other Start: 10-22-2022 Telephone encounter Robert Cruz [facility] Start: 10-13-2022 End: 10-13-2022 ambulatory Robert Cruz Other [employer] Other Start: 10-13-2022 Telephone encounter Robert Cruz [facility] Start: 09-27-2022 End: 09-27-2022 ambulatory Robert Cruz Other [employer] Other Start: 09-27-2022 Telephone encounter Robert Cruz [facility] Start: 08-23-2022 End: 08-24-[address] RISHI PARKER Facility:[facility] Start: 08-04-2022 End: 08-04-2022 ambulatory Robert Hamilton Other [employer] Other Start: 08-04-2022 Office outpatient vi sit 25 minutes Robert Hamilton [facility] Start: 04-03-2022 Encounter for genera l adult medical examination without abnormal findings DR ROBERT CRUZ [facility] Start: 03-30-2022 End: 03-31-[address] [...] Start: 07-03-2018 End: 07-03-2018 Patient encounter procedure [facility] Start: 06-20-2018 End: 06-20-2018 Evaluation and management of inpatient [facility] Procedures Date Procedure Procedure Detail Performing Clinician Start: 06-07-2018 Antibody screen [facility] CCHETTI Plan of Treatment Date Care Activity Detail Author Comprehensive metabo lic 2000 panel - Serum or Plasma [facility] enter MG Breast - bilateral Diagnostic [facility] Payers Date Payer Category Payer Unknown 2022 Blue Cross Blue [facility] [id number] 2019 Unknown [id number] 2015 Unknown [id number] 1959 Self-pay [id number] 1959 Unknown [id number] 2..840.1.011382.3.579.2.5 93 1959 Unknown [id number] 2..840.1.543353.3.579.2.5 93 1959 Unknown [id number] 2..840.1.103055.3.579.2.5 93 1959 Unknown [id number] 2..840.1.311472.3.579.2.5 93 1959 Unknown [id number] 2.16.840.1.720392.3.579.2.5 93 1959 Unknown [id number] 2.16.840.1.798634.3.579.2.5 93 1959 Unknown [id number] 2.16.840.1.581790.3.579.2.1 96 1959 Unknown [id number] 2.16.840.1.020736.3.579.2.1 96 1959 Unknown [id number] 2.16.840.1.629907.3.579.2.1 96 1959 Unknown [id number] 2.16.840.1.210735.3.579.2.1 96 1959 Unknown [id number] 2.16.840.1.828447.3.579.2.1 96 1959 Unknown [id number] 2.16.840.1.145305.3.579.2.1 96 1959 Unknown [id number] 2.16.840.1.587189.3.579.2.1 96 1959 Unknown [id number] 2.16.840.1.491264.3.579.2.7 27 Medicare Medicare [id number] Unknown [id number] 2.16.840.1.839119.3.579.2.5 93 Unknown [id number] Unknown Formerly [facility], [facility] PF [id number] Social History Date Type Detail Facility Sex Assigned At [employer] Other Start: 1960 Sex Assigned At Female [facility] Work Phone: Start: 06-25-2024 Sex Female (finding) [facility] Clinical Notes 08-04-2022 to 06-01-2023 Note [...] and without status migrainosus (ICD-10 - G43.719) [employer] Other 01-15-2024 Evaluation note* Encounter Date Diagnosis Assessment Notes Treatment Notes Treatment Clinical Notes Apr, Intractable chronic migraine without aura and without status migrainosus (ICD-10 - G43.719) [employer] Other 01-08-2024 Evaluation note* Encounter Date Diagnosis Assessment Notes Treatment Notes Treatment Clinical Notes Apr, Intractable chronic migraine without aura and without status migrainosus (ICD-10 - G43.719) [employer] Other 01-05-2024 Evaluation note* Encounter Date Diagnosis [...] Begin Amitriptyline Stop Tizanidine. 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 May want to cut back on Zanaflex. [...] Pain in left shoulder (ICD-10 - M25.512) [employer] Other 06-30-2023 Evaluation note* Encounter Date Diagnosis Assessment Notes Treatment Notes Treatment Clinical Notes Sep, Type 2 diabetes mellitus with hyperglycemia, without long-term current use of insulin (ICD-10 - E11.65) [employer] Other 06-05-2023 Evaluation note* Encounter Date Diagnosis Assessment Notes Treatment Notes Treatment Clinical Notes Sep, Candidiasis, intertriginous (ICD-10 - B37.2) [employer] Other 04-12-2023 Evaluation note* Encounter Date Diagnosis [...] use, the patient reduces the risk for [place], CVA, HTN, cardiac dysrhythmias and sudden cardiac [...] Jul, Other specified hypothyroidism (ICD-10 - E03.8) [employer] Other Evaluation noteNo [employer] Other Evaluation noteNo assessment information available [facility] Work Phone: Evaluation note* Diagnosis Onset Date Resolution Status Cervical pain acute Cervical spondylosis acute Cervical pain acute Cervical spondylosis acute Painful lumpy right breast a roberta [facility] Work Phone: History general Narrative - [...] LEFT HEART CATHETERIZATION 2016 Hospitalization History SEE [facility] Other History general Narrative - Reported* Type [...] Right knee arthroscopy 10/2022 Hospitalization History SEE [facility] Other Reason for referral (narrative)* Reason Evaluation of right knee pain Diagnosis 1 Strain of right knee , subsequent encounter (S86.074W) Referral Organization [facility] Hamilton Odette C bhupinder Referring Provider First Name Robert Referring Provider Last Name Hamilton Referring Provider Specialty Internal Me yoni Referred Provider Rishi Parker Jr Referred Provider Specialty Orthopedic S urgery Referral Priority Routine [employer] Other Reason for referral (narrative)* Reason Referral for neck pa in Diagnosis 1 Cervicalgia (M54.2) Diagnosis 2 Cervical spondylosis (M47.812) Referral Organization [facility] bhupinder Referring Provider First Name Robert Referring Provider Last Name Hamilton Referring Provider Specialty Internal Me dicine Referred Organization [facility] Referred Address [address], [place],[address] Referred Provider Specialty Pain Medicin e Referral Priority Routine General Notes Patient has hx of ce rvical discectomy and fusion and presented w/ persistent neck pain, which radiated upwards causing a headache. She is being referred for treatment with the pain clinic. Clinical Notes Include MRI [employer] Other Summary Purpose Family History Relationship Condition [...] and content) DATE CREATED AUTHOR 06/20/2018 [facility] DATE CREATED AUTHOR AUTHOR'S ORGANIZ ATION 07/04/2018 [facility] DATE CREATED AUTHOR AUTHOR'S ORGANIZ ATION 09/18/[address] [facility] DATE CREATED AUTHOR AUTHOR'S ORGANIZ ATION 08/27/2022 [facility] DATE CREATED AUTHOR AUTHOR'S ORGANIZ ATION 04/18/2024 [facility] DATE CREATED AUTHOR AUTHOR'S ORGANIZ ATION 06/23/2024 [facility] REASON FOR VISIT (unrecogniz ed section [...] BE BASED ON THE PRIMARY CLINICAL RECORDS. [facility]. provides no warranty or guarantee of the accuracy or completeness of information in this document.
[2024-06-30 14:12] VITALS: BP 168/76; PULSE 68; TEMP 36.7; O2SAT 98; BMI 33.1
--- NOTE | 2024-06-30 14:41 | ED.GENADUL1 ---
HPI HPI - General Adult General Chief complaint: Extremity Problem, Nontraumatic Stated complaint: RT HIP SEVERE PAIN Time Seen by Provider: 06/30/24 14:31 Source: patient and family Mode of arrival: walk-in Limitations: physical limitation History of Present Illness HPI narrative: Patient states she woke up today with severe pain over the right buttock radiating down the side and front of the right leg past the knee. When she stands up and puts weight on the leg the pain is worse and it is improved when she is lying down. She denies loss of bladder control. Patient is hypertensive and diabetic. She took a tramadol tablet today without relief. Related Data Home Medications ?Medication ?Instructions ?Recorded ?Confirmed atenolol 50 mg tablet 50 mg PO DAILY 09/28/22 06/30/24 citalopram 40 mg tablet (Celexa) 40 mg PO DAILY 09/28/22 06/30/24 glimepiride 4 mg tablet 4 mg PO DAILY 09/28/22 06/30/24 levothyroxine 125 mcg tablet 125 mcg PO DAILY 09/28/22 06/30/24 (Synthroid) metformin 500 mg tablet 500 mg PO BID 09/28/22 06/30/24 pravastatin 40 mg tablet 40 mg PO DAILY 09/28/22 06/30/24 tizanidine 4 mg tablet 4 mg PO .hs muscle spasticity 09/28/22 06/30/24 clonazepam 1 mg tablet (Klonopin) 1.5 mg PO DAILY 05/18/23 06/30/24 rizatriptan 10 mg tablet (Maxalt) 10 mg PO Q2H PRN migraine headache 05/18/23 06/30/24 olmesartan 20 mg tablet 20 mg PO DAILY 06/06/23 06/30/24 etodolac 500 mg tablet 500 mg PO BID 05/09/24 06/30/24 Previous Rx's ?Medication ?Instructions ?Recorded gabapentin 100 mg capsule 200 mg (2 x 100 mg) PO BID #60 caps 06/30/24 hydrocodone 5 mg-acetaminophen 325 1 tab PO Q6H PRN pain #20 tabs 06/30/24 mg tablet polyethylene glycol 3350 17 17 g PO DAILY PRN constipation 06/30/24 gram/dose oral powder (Miralax) #510 grams Allergies Allergy/AdvReac Type Severity Reaction Status Date / Time calcium (From DHEA) Allergy Severe respirator Verified 06/01/24 11:28 arrest calcium carbonate (From DHEA) Allergy Severe respirator Verified 06/01/24 11:28 arrest prasterone (DHEA) (From DHEA) Allergy Severe respirator Verified 06/01/24 11:28 arrest hydromorphone (From Dilaudid) Allergy Intermediate Unknown Verified 06/01/24 11:28 iodine Allergy Intermediate Unknown Verified 06/01/24 11:28 latex Allergy Intermediate Unknown Verified 06/01/24 11:28 meperidine (From Demerol) Allergy Intermediate Unknown Verified 06/01/24 11:28 sumatriptan (From Imitrex) Allergy Intermediate Unknown Verified 06/01/24 11:28 Opioid HPI Opioid Management Most Recent Opioid Data: Last Pain Scale 10 06/30/24 15:03 06/30/24 Last MAR Pain Assessment 06/30/24 15:03 Ur Phencyclidine Scrn Negative (NEGATIVE) 12/17/22 11:00 12/17/22 Review of Systems ROS Status of ROS 10 or more systems reviewed and unremarkable except as noted in history and below [facility] Medical History Shoulder pain, right ?M25.511 - Pain in right shoulder (ICD-10) Osteoarthritis ?M19.90 - Unspecified osteoarthritis, unspecified site (ICD-10) Low back pain ?M54.50 - Low back pain, unspecified (ICD-10) Neck pain ?M54.2 - Cervicalgia (ICD-10) TIA (transient ischemic attack) ?G45.9 - Transient cerebral ischemic attack, unspecified (ICD-10) Hearing deficit ?H91.90 - Unspecified hearing loss, unspecified ear (ICD-10) Acid reflux ?K21.9 - Gastro-esophageal reflux disease without esophagitis (ICD-10) Obesity ?E66.9 - Obesity, unspecified (ICD-10) Diabetes ?E11.9 - Type 2 diabetes mellitus without complications (ICD-10) Hypothyroid ?E03.9 - Hypothyroidism, unspecified (ICD-10) Sleep apnea ?G47.30 - Sleep apnea, unspecified (ICD-10) Irregular heart beat ?I49.9 - Cardiac arrhythmia, unspecified (ICD-10) High cholesterol ?E78.00 - Pure hypercholesterolemia, unspecified (ICD-10) Hypertension ?I10 - Essential (primary) hypertension (ICD-10) Surgical History H/O cosmetic surgery ?Z98.890 - Other specified postprocedural states (ICD-10) H/O thyroidectomy ?E89.0 - Postprocedural hypothyroidism (ICD-10) H/O lumbosacral spine surgery ?Z98.890 - Other specified postprocedural states (ICD-10) H/O operation on finger ?Z98.890 - Other specified postprocedural states (ICD-10) H/O carpal tunnel repair ?Z98.890 - Other specified postprocedural states (ICD-10) H/O arthroscopic knee surgery ?Z98.890 - Other specified postprocedural states (ICD-10) H/O: hysterectomy ?Z90.710 - Acquired absence of both cervix and uterus (ICD-10) Hx of appendectomy ?Z90.49 - Acquired absence of other specified parts of digestive tract (ICD-10) H/O exploratory laparotomy ?Z98.890 - Other specified postprocedural states (ICD-10) H/O: ?Z98.891 - History of uterine scar from previous surgery (ICD-10) H/O shoulder surgery ?Z98.890 - Other specified postprocedural states (ICD-10) H/O cervical spine surgery ?Z98.890 - Other specified postprocedural states (ICD-10) S/P cataract extraction ?Z98.49 - Cataract extraction status, unspecified eye (ICD-10) Social History Little interest or pleasure in doing things: not at all Feeling down, depressed, or hopeless: not at all Exam Narrative Exam Narrative: Patient appears in mild discomfort due to pain. Vital signs are significant for mild hypertension. Speech and mentation are clear and intact. There is no facial asymmetry. She moves all extremities actively. HEENT exam is normal to inspection. Neck is supple. Lung sounds are clear to auscultation bilaterally with good air entry. Heart has regular rate and rhythm. Abdomen is protuberant, soft nontender. Patient localizes tenderness over the right buttock and this is reproducible with local pressure. There is no midline lumbosacral spine tenderness. She tolerates straight leg raising in the right leg fairly well. Tone and power are normal and symmetric in both lower extremities. Constitutional Vital Signs, click to edit/add: Last Vital Signs Temp 98.0 F 06/30/24 14:12 Pulse 68 06/30/24 14:12 Resp 20 06/30/24 14:12 BP 149/97 H 06/30/24 15:12 Pulse Ox 97 06/30/24 15:12 O2 Del Method Room Air 06/30/24 14:12 Course Vital Signs Vital signs: Vital Signs Pulse Rate 72 06/30/24 14:00 Temperature 98.0 F 06/30/24 14:12 Pulse Rate 68 06/30/24 14:12 Respiratory Rate 20 06/30/24 14:12 Blood Pressure 149/97 H 06/30/24 15:12 Pulse Oximetry 97 06/30/24 15:12 Oxygen Delivery Method Room Air 06/30/24 14:12 Medical Decision Making [facility] Narrative Medical decision making narrative: Patient has listed Demerol and Dilaudid as allergies. She states that Demerol gave her hypotension when she was administered it several years ago for colonoscopy. She states that she was admitted to the hospital with a migraine headache at 1 time and was receiving IV DHE and IV Dilaudid and had respiratory arrest. I feel neither of these are true allergies and with IM Dilaudid she should not have issues. My plan is to treat her with Dilaudid 1 mg, Phenergan 25 mg and Decadron 8 mg IM in the ED. Following the administration of these medications patient's feels better. Her presentation is consistent with lumbar radiculopathy without evidence of myelopathy. Upon discharge she is placed on [place] and gabapentin. She is advised outpatient follow-up with PCP for further management and might benefit from physical therapy. She is to return anytime for worsening symptoms. Discharge Plan Discharge Chief Complaint: Extremity Problem, Nontraumatic Clinical Impression: Lumbar radiculopathy, acute Patient Disposition: Home, Self-Care Time of Disposition Decision: 16:09 Condition: Good Mode of Transportation: Private Vehicle Prescriptions / Home Meds: New hydrocodone-acetaminophen 5-325 mg tablet 1 tab PO Q6H PRN (Reason: pain) Qty: 20 0RF gabapentin 100 mg capsule 200 mg PO BID Qty: 60 0RF polyethylene glycol 3350 [Miralax] 17 gram/dose powder 17 g PO DAILY PRN (Reason: constipation) Qty: 510 0RF No Action rizatriptan [Maxalt] 10 mg tablet 10 mg PO Q2H PRN (Reason: migraine headache) Rx Instructions: do not exceed 3 doses per 24 hrs clonazepam [Klonopin] 1 mg tablet 1.5 mg PO DAILY olmesartan 20 mg tablet 20 mg PO DAILY tizanidine 4 mg tablet 4 mg PO .hs Rx Instructions: prn bid atenolol 50 mg tablet 50 mg PO DAILY levothyroxine [Synthroid] 125 mcg tablet 125 mcg PO DAILY citalopram [Celexa] 40 mg tablet 40 mg PO DAILY pravastatin 40 mg tablet 40 mg PO DAILY metformin 500 mg tablet 500 mg PO BID glimepiride 4 mg tablet 4 mg PO DAILY etodolac 500 mg tablet 500 mg PO BID Print Language: Macedonian Instructions: Lumbar Radiculopathy (ED) Additional Instructions: Follow-up with your physician early next week. Return for worsening symptoms. Referrals: Robert Cruz DO [Primary Care Provider] - 1 week
[2024-06-30] MEDS: HYDROMORPHONE HCL 1 MG/ML CARTRIDGE IM (15:03)
[2024-06-30] MEDS: PROMETHAZINE HCL 25 MG/ML VIAL IM (15:04)
[2024-06-30] MEDS: DEXAMETHASONE SOD PHOS 10 MG/ML VIAL 8 MG IM (15:04)
[2024-06-30 15:11] VITALS: O2SAT 97
[2024-06-30 15:12] VITALS: BP 149/97; O2SAT 97
== END 2024-06-30 16:25 | disposition home or self-care (01) ==
PROVIDERS: Emergency Provider Emergency Medicine; PCP Internal Medicine
DX: M54.16 Radiculopathy, lumbar region (principal); I10 Essential (primary) hypertension; E11.9 Type 2 diabetes mellitus without complications; Z79.84 Long term (current) use of oral hypoglycemic drugs; E89.0 Postprocedural hypothyroidism; Z90.710 Acquired absence of both cervix and uterus; Z90.49 Acquired absence of other specified parts of digestive tract
CPT/HCPCS: 96372; 99284; J1100; J1171; J2550

== ENCOUNTER 2024-07-02 11:00 | Emergency (ER) | payer OTHER, SELFPAY ==
[2024-07-02 11:07] VITALS: BP 129/53; PULSE 62; TEMP 36.7; O2SAT 96; BMI 33.1
--- NOTE | 2024-07-02 11:14 | PC.NURSE ---
Pain to right hip and leg, no redness, swelling or bruising. Skin to right leg pink and warm and pulses present.
--- OUTSIDE RECORDS SUMMARY | 2024-07-02 11:22 | XMS_ITS | CCD ---
Author Organization [facility] CliniSyvt Care Team Providers Care Yacht Master Name Role Phone REECE LENTZIC New Admitting [...] adverse reactions to drug (disorder) 09-30-[address] [facility] Repository (2 sources) HYDROmorphone; Translations: [HYDROMORPHONE (BULK)] Drug Allergy 08-17-[address] [facility] Repository (20 sources) Latex; Translations: [LATEX] Propensity to adverse reactions to drug (disorder) 09-30-19 11 Unknown, Unknown Reaction [facility] Repository (2 sources) Meperidine; Translations: [MEPERIDINE (PF)] Drug Allergy 09-30-[address] [facility] Repository (2 sources) Povidone-Iodine; Translations: [POVIDONE-IODINE] Drug Allergy 10-21-[address] [facility] Repository (2 sources) SUMAtriptan; Translations: [SUMATRIPTAN SUCCINATE] Drug Allergy 09-30-[address] [facility] Repository (2 sources) INFLUENZA VACCINE TRI-SP 09-10; Translations: [INFLUENZA VACCINE TRI-SP 09-10] Propensity to adverse reactions to drug (disorder) 09-30-[address] [facility] Repository (3 sources) DHE; Translations: [DHE] Propensity to adverse reactions to drug (disorder) 10-24-[address] [facility] Repository (20 sources) HYDROmorphone Drug Allergy 12-20-19 24 Unknown, Unknown Reaction [facility] (20 sources) Iodine; Translations: [iodine] Drug Allergy 10-24-19 13 Unknown, Unknown Reaction [facility] Repository (20 sources) Meperidine Drug Allergy 12-20-19 24 Unknown, Unknown Reaction [facility] (20 sources) SUMAtriptan Drug Allergy 12-20-19 24 Unknown, Unknown Reaction [facility] (20 sources) Fluad Drug allergy 12-20-19 24 Unknown, Unknown Reaction [facility] (17 sources) DHEA Drug allergy Unknown [facility] Other (2 sources) HYDROmorphone; Translations: [Dilaudid] Drug Allergy 10-24-19 13 [facility] Repository (1 source) Meperidine Drug Allergy 10-24-19 13 [facility] Repository (2 sources) Plasmin; Translations: [Imitrex] Drug Allergy 10-24-19 13 [facility] Repository (12 sources) influenza A virus (H1N1) antigen / influenza A virus (H3N2) antigen / influenza B virus antigen Drug Allergy 11-21-19 14 Comment:FLU VACCINE [facility] [place] Other (12 sources) Contraindication to Flu Injection Propensity to adverse reactions 03-07-20 14 Comment:advers e rxn/side effects [facility] [place] Other (3 sources) patient allergy list reviewed by nurse or physicia Propensity to adverse reactions 12-22-19 Comment:Done [facility] Other (3 sources) Calcium Drug Allergy 12-20-19 24 Unknown Reaction [facility] (3 sources) Calcium Carbonate Drug Allergy 12-20-19 24 Unknown Reaction [facility] (3 sources) prasterone (DHEA) Allergy to substance 12-20-19 Unknown Reaction [facility] (3 sources) Fluad Quadrivalent Allergy to substance 04-29-19 Comment:FLU VACCINE [facility] Comment on above: Onset Date: 11/21/19 14 (1 source) Meperidine; Translations: [Demerol HCl] Drug Allergy [facility] Repository (1 source) flu vaccines; Translations: [flu vaccines] Propensity to adverse reactions (disorder) [facility] Repository Medications Current Medications Medication Drug [...] Start: 09-30-2022 take 3 tablets by mo [facility] at bedtime clonazePAM 0.5 MG TAKE 3 [...] every two hours as needed for headache Maxalt-BAR PILOT 10 MG 1 tablet Orally PRN headache, [...] Panel Informationon 06-01 Miscellaneous Test COMMENT . [facility] Comment on above: Test Ordered: [id number] Aerobic Cult, Extended IncubAerobic Cult, Extended Incub [...] STetracycline STrimethoprim/Sulfa SVancomycin SPerformed at: - [facility] [address] [id number] Director: Noam Haskins PhD, Phone: [phone] Basophils Auto (Bld) [#/Vol] on 05-31-2024 Basophils (Bld) [#/Vol] Automated basophil count 0.0-0.1 [facility] Basophils/100 WBC Auto (Bld) on 05-31-2024 Basophils/100 WBC (Bld) Automated basophil % 0.2-2.0 [facility] Eosinophils/100 WBC Auto (Bl d)on 05-31-2024 Eosinophils/100 WBC (Bld) Automated eosinophil % 0.9-7.0 [facility] Erythrocyte distribution wid th Auto (RBC) [Ratio]on 05-31-2024 Erythrocyte distribution width (RBC) [Ratio] Erythrocyte distribution width [Ratio] by Automated count 11.0-15.0 [facility] Hematocrit Auto (Bld) [Volum e fraction]on 05-31-2024 Hematocrit (Bld) [Volume fraction] Hematocrit [Volume Fraction] of Blood by Automated count 36.0-48.0 [facility] Hemoglobin [Mass/volume] in Bloodon 05-31-2024 Hemoglobin (Bld) [Mass/Vol] Hemoglobin [Mass/volume] in Blood 12.0-16.0 [facility] Laboratory - Hematology and Cell countson 05-31-2024 ESR (Bld) [Velocity] 7 mm/h <=30 [facility] Immature granulocytes/100 WBC (Bld) 0.2 % 0.0-0.5 [facility] Leukocytes [#/volume] correc chip for nucleated erythrocytes in Blood by Automated counon 05-31-2024 WBC corrected for nucl RBC Auto (Bld) [#/Vol] Leukocytes [#/volume] corrected for nucleated erythrocytes in Blood by Automated coun 4.0-11.0 [facility] Lymphocytes Auto (Bld) [#/Vo l]on 05-31-2024 Lymphocytes (Bld) [#/Vol] Lymphocytes [#/volume] in Blood by Automated count 1.2-3.8 [facility] Lymphocytes/100 WBC Auto (Bl d)on 05-31-2024 Lymphocytes/100 WBC (Bld) Lymphocytes/100 leukocytes in Blood by Automated count 20.5-60.0 [facility] MCH Auto (RBC) [Entitic mass ]on 05-31-2024 MCH (RBC) [Entitic mass] MCH [Entitic mass] by Automated count 26.7-34.0 [facility] MCHC Auto (RBC) [Mass/Vol]on 05-31-2024 MCHC (RBC) [Mass/Vol] MCHC [Mass/volume] by Automated count 29.9-35.2 [facility] MCV Auto (RBC) [Entitic vol] on 05-31-2024 MCV (RBC) [Entitic vol] MCV [Entitic volume] by Automated count 81.0-99.0 [facility] Monocytes Auto (Bld) [#/Vol] on 05-31-2024 Monocytes (Bld) [#/Vol] Automated blood monocyte count 0.3-0.8 [facility] Monocytes/100 WBC Auto (Bld) on 05-31-2024 Monocytes/100 WBC (Bld) Automated monocyte % 1.7-12.0 [facility] Neutrophils Auto (Bld) [#/Vo l]on 05-31-2024 Neutrophils (Bld) [#/Vol] Neutrophils [#/volume] in Blood by Automated count 1.4-6.5 [facility] Neutrophils/100 WBC Auto (Bl d)on 05-31-2024 Neutrophils/100 WBC (Bld) Automated neutrophil % 43.0-75.0 [facility] No Panel Informationon 05-31 C-Reactive Protein, Quantitative <0.50 mg/dL <=0.50 [facility] Eosinophils # (Auto) 0.1 10 3/uL 0.0-0.7 [facility] Immature Granulocyte # (Auto) 0.01 10 3/uL 0.00-0.03 [facility] Platelet mean volume Auto (B ld) [Entitic vol]on 05-31-2024 Platelet mean volume (Bld) [Entitic vol] Platelet mean volume [Entitic volume] in Blood by Automated count Low 9.5-13.5 [facility] Platelets Auto (Bld) [#/Vol] on 05-31-2024 Platelets (Bld) [#/Vol] Platelets [#/volume] in Blood by Automated count 150-450 [facility] RBC Auto (Bld) [#/Vol]on RBC (Bld) [#/Vol] Erythrocytes [#/volu me] in Blood by Automated count 4.20-5.40 [facility] Basophils Auto (Bld) [#/Vol] on 12-27-2023 Basophils (Bld) [#/Vol] 0.1 10 3/uL 0.0-0.1 [facility] Basophils/100 WBC Auto (Bld) on 12-27-2023 Basophils/100 WBC (Bld) 1.0 % 0.2-2.0 [facility] Cholesterol in LDL Calc [Mas s/Vol]on 12-27-2023 Cholesterol in LDL [Mass/Vol] 63.0 mg/dL [facility] Comment on above: <100 mg/dl [id number] 0-129 mg/dl NEAR OR ABOVE [id number] mg/dl BORDERLINE [id number] mg/dl HIGH>190 mg/dl VERY HIGH Cholesterol in VLDL Calc [Ma ss/Vol]on 12-27-2023 Cholesterol in VLDL [Mass/Vol] 45.8 mg/dL [facility] Eosinophils/100 WBC Auto (Bl d)on 12-27-2023 Eosinophils/100 WBC (Bld) 8.3 % High 0.9-7.0 [facility] Erythrocyte distribution wid th Auto (RBC) [Ratio]on 12-27-2023 Erythrocyte distribution width (RBC) [Ratio] 11.9 % 11.0-15.0 [facility] Estimated glomerular filtrat ion rate (GFR) non- Americanon 12-27-2023 GFR/1.73 sq M.predicted among non-blacks MDRD (S/P/Bld) [Vol rate/Area] 47 mL/min/{1.73_m2} Low >=60 [facility] Globulin Calc (S) [Mass/Vol] on 12-27-2023 Globulin (S) [Mass/Vol] 3.2 g/dL [facility] Glucose mean value [Mass/vol ume] in Blood Estimated from glycated hemoglobinon 12-27-2023 Average glucose Estimated from glycated hemoglobin (Bld) [Mass/Vol] 143 mg/dL [facility] Hematocrit Auto (Bld) [Volum e fraction]on 12-27-2023 Hematocrit (Bld) [Volume fraction] 39.7 % 36.0-48.0 [facility] Hemoglobin [Mass/volume] in Bloodon 12-27-2023 Hemoglobin (Bld) [Mass/Vol] 12.9 g/dL 12.0-16.0 [facility] Laboratory - Chemistry and C hemistry - challengeon 12-27-2023 Albumin [Mass/Vol] 3.7 g/dL 3.4-5.0 [facility] ALP [Catalytic activity/Vol] 61 U/L 46-116 [facility] ALT [Catalytic activity/Vol] 36 U/L 14-59 [facility] AST [Catalytic activity/Vol] 24 U/L 15-37 [facility] Bilirubin [Mass/Vol] 0.6 mg/dL 0.2-1.0 [facility] Calcium [Mass/Vol] 9.2 mg/dL 8.5-10.1 [facility] Chloride [Moles/Vol] 101 mmol/L 98-107 [facility] Cholesterol [Mass/Vol] 146 mg/dL <=200 [facility] Cholesterol in HDL [Mass/Vol] 38 mg/dL Low 40-60 [facility] Comment on above: > or =60 mg/dl - LOW CARDIOVASCULAR RISK<40 mg/dl - HIGH CARDIOVASCULAR RISK CO2 [Moles/Vol] 26.8 mmol/L 21.0-32.0 [facility] Creatinine [Mass/Vol] 1.17 mg/dL High 0.55-1.02 [facility] GFR/1.73 sq M.predicted MDRD (S/P/Bld) [Vol rate/Area] 56 mL/min/{1.73_m2} Low >=60 [facility] Glucose [Mass/Vol] 138 mg/dL High 74-106 [facility] Potassium [Moles/Vol] 4.5 mmol/L 3.5-5.1 [facility] Protein [Mass/Vol] 6.9 g/dL 6.4-8.2 [facility] Sodium [Moles/Vol] 138 mmol/L 136-145 [facility] Triglyceride [Mass/Vol] 229 mg/dL High <=150 [facility] TSH Qn 0.834 m[IU]/L 0.358-3.740 [facility] Urea nitrogen [Mass/Vol] 23.0 mg/dL High 7.0-18.0 [facility] Urea nitrogen/Creatinine [Mass ratio] 19.7 mg/mg [facility] Laboratory - Hematology and Cell countson 12-27-2023 HbA1c (Bld) [Mass fraction] 6.6 % High 4.5-6.2 [facility] Comment on above: ADA RECOMMENDED LIMI T 4.0 - 6.0ADA THERAPEUTIC TARGET < 7.0ACTION SUGGESTED> 7.0 Immature granulocytes/100 WBC (Bld) 0.4 % 0.0-0.5 [facility] Leukocytes [#/volume] correc chip for nucleated erythrocytes in Blood by Automated counon 12-27-2023 WBC corrected for nucl RBC Auto (Bld) [#/Vol] 5.2 10 3/uL 4.0-11.0 [facility] Lymphocytes Auto (Bld) [#/Vo l]on 12-27-2023 Lymphocytes (Bld) [#/Vol] 2.2 10 3/uL 1.2-3.8 [facility] Lymphocytes/100 WBC Auto (Bl d)on 12-27-2023 Lymphocytes/100 WBC (Bld) 42.1 % 20.5-60.0 [facility] MCH Auto (RBC) [Entitic mass ]on 12-27-2023 MCH (RBC) [Entitic mass] 28.5 pg 26.7-34.0 [facility] MCHC Auto (RBC) [Mass/Vol]on 12-27-2023 MCHC (RBC) [Mass/Vol] 32.5 g/dL 29.9-35.2 [facility] MCV Auto (RBC) [Entitic vol] on 12-27-2023 MCV (RBC) [Entitic vol] 87.8 fL 81.0-99.0 [facility] Monocytes Auto (Bld) [#/Vol] on 12-27-2023 Monocytes (Bld) [#/Vol] 0.3 10 3/uL 0.3-0.8 [facility] Monocytes/100 WBC Auto (Bld) on 12-27-2023 Monocytes/100 WBC (Bld) 6.4 % 1.7-12.0 [facility] Neutrophils Auto (Bld) [#/Vo l]on 12-27-2023 Neutrophils (Bld) [#/Vol] 2.2 10 3/uL 1.4-6.5 [facility] Neutrophils/100 WBC Auto (Bl d)on 12-27-2023 Neutrophils/100 WBC (Bld) 41.8 % Low 43.0-75.0 [facility] No Panel Informationon 12-26 Eosinophils # (Auto) 0.4 10 3/uL 0.0-0.7 [facility] Immature Granulocyte # (Auto) 0.02 10 3/uL 0.00-0.03 [facility] Platelet mean volume Auto (B ld) [Entitic vol]on 12-27-2023 Platelet mean volume (Bld) [Entitic vol] 9.6 fL 9.5-13.5 [facility] Platelets Auto (Bld) [#/Vol] on 12-27-2023 Platelets (Bld) [#/Vol] 190 10 3/uL 150-450 [facility] RBC Auto (Bld) [#/Vol]on RBC (Bld) [#/Vol] 4.52 10 6/uL 4.20-5.40 [facility] Serum or plasma albumin/glob ulin mass ratioon 12-27-2023 Albumin/Globulin [Mass ratio] 1.2 {ratio} [facility] Serum or plasma anion gap de terminationon 12-27-2023 Anion gap [Moles/Vol] 14.7 mmol/L Fi [facility] Serum or plasma total choles terol/high density lipoprotein (HDL) cholesterol mass desiree 12-27-2023 Cholesterol.total/Cho lesterol in HDL [Mass ratio] 3.8 {ratio} [facility] Comment on above: 3.3 - 4.4 [...] BERNY CANO Date: 2022-08-24 07:19 Normal [facility] CBC AUTO DIFFon 03-30-2022 BASO # 0.0 103/ul Normal 0.0-0.1 [facility] Comment on above: Performed By: #### C BC #### [facility] [address] [address] [address] Rc Foster Basophils/100 WBC (Bld) 0.4 % Normal 0.2-2.0 [facility] Comment on above: Performed By: #### C BC #### [facility] [address] [address] [address] Rc Foster EO # 0.3 103/ul Normal 0.0-0.7 [facility] Comment on above: Performed By: #### C BC #### [facility] [address] [address] [address] Rc Foster Eosinophils/100 WBC (Bld) 4.9 % Normal 0.9-7.0 [facility] Comment on above: Performed By: #### C BC #### [facility] [address] [address] [address] Rc Foster Erythrocyte distribution width (RBC) [Ratio] 12.2 % Normal 11.0-15.0 [facility] Comment on above: Performed By: #### C BC #### [facility] [address] [place] [address] Dr. Rc Foster Hematocrit (Bld) [Volume fraction] 39.8 % Normal 36.0-48.0 [facility] Comment on above: Performed By: #### C BC #### [facility] [address] [place] [address] Dr. Rc Foster Hemoglobin (Bld) [Mass/Vol] 13.1 g/dL Normal 12.0-16.0 [facility] Comment on above: Performed By: #### C BC #### [facility] [address] [place] [address] Dr. Rc Foster IG # 0.02 10e3/ul Normal 0.00-0.03 [facility] Comment on above: Performed By: #### C BC #### [facility] [address] [place] [address] Dr. Rc Foster IG % 0.4 % Normal 0.0-0.5 [facility] Comment on above: Performed By: #### C BC #### [facility] [address] [place] [address] Dr. Rc Foster LYMPH # 2.1 103/ul Normal 1.2-3.8 [facility] Comment on above: Performed By: #### C BC #### [facility] [address] [place] [address] Dr. Rc Foster Lymphocytes/100 WBC (Bld) 37.1 % Normal 20.5-60.0 [facility] Comment on above: Performed By: #### C BC #### [facility] [address] [place] [address] Dr. Rc Foster MANUAL DIFF REQ NO Normal [facility] Comment on above: Performed By: #### C BC #### [facility] [address] [place] [address] Dr. Rc Foster MCH (RBC) [Entitic mass] 28.7 pg Normal 26.7-34.0 [facility] Comment on above: Performed By: #### C BC #### [facility] [address] [place] [address] Dr. Rc Foster MCHC (RBC) [Mass/Vol] 32.9 g/dL Normal 29.9-35.2 [facility] Comment on above: Performed By: #### C BC #### [facility] [address] [place] [address] Dr. Rc Foster MCV (RBC) [Entitic vol] 87.1 fL Normal 81.0-99.0 [facility] Comment on above: Performed By: #### C BC #### [facility] [address] [address] [address] Rc Foster MONO # 0.4 103/ul Normal 0.3-0.8 [facility] Comment on above: Performed By: #### C BC #### [facility] [address] [place] [address] Dr. Rc Foster Monocytes/100 WBC (Bld) 6.7 % Normal 1.7-12.0 [facility] Comment on above: Performed By: #### C BC #### [facility] [address] [place] [address] Dr. Rc Foster NEUT # 2.9 103/ul Normal 1.4-6.5 [facility] Comment on above: Performed By: #### C BC #### [facility] [address] [place] [address] Dr. Rc Foster Neutrophils/100 WBC (Bld) 50.5 % Normal 43.0-75.0 [facility] Comment on above: Performed By: #### C BC #### [facility] [address] [place] [address] Dr. Rc Foster Platelet mean volume (Bld) [Entitic vol] 9.7 fL Normal 9.5-13.5 [facility] Comment on above: Performed By: #### C BC #### [facility] [address] [place] [address] Dr. Rc Foster PLT 189 103/ul Normal 150-450 [facility] Comment on above: Performed By: #### C BC #### [facility] [address] [place] [address] Dr. Rc Foster RBC 4.57 106/ul Normal 4.20-5.40 [facility] Comment on above: Performed By: #### C BC #### [facility] [address] [address] [address] Rc Foster WBC 5.7 103/ul Normal 4.0-11.0 [facility] Comment on above: Performed By: #### C BC #### [facility] [address] [address] [address] Rc Foster GLYCOHEMOGLOBIN A1Con 2021 ADA RECOMMENDATION SEE BELOW Normal [facility] Comment on above: Result Comment: ADA RECOMMENDED LIMIT 4.0 - 6.0 ADA THERAPEUTIC TARGET < 7.0 ACTION SUGGESTED > 7.0 Performed By: #### A 1C #### [facility] [address] [place] [address] Dr. Rc Foster Glucose [Mass/Vol] 143 mg/dL Normal [facility] Comment on above: Performed By: #### A 1C #### [facility] [address] [address] [address] Rc Foster HbA1c (Bld) [Mass fraction] 6.6 % Critically high 4.5-6.2 [facility] Comment on above: Performed By: #### A 1C #### [facility] [address] [place] [address] Dr. Rc Foster LIPID PROFILEon 03-30-2022 CHOL-HDL RATIO NORM SEE BELOW Normal [facility] Comment on above: Result Comment: 3.3 - 4.4 LOW RISK 4.4 - 7.1 AVERAGE RISK 7.1 - 11.0 MODERATE RISK >11.0 HIGH RISK Performed By: #### T SH, CMP, LIPID ####[facility] [address] [address]Dr[address] Rc Foster Cholesterol [Mass/Vol] 184 mg/dL Normal <=200 [facility] Comment on above: Performed By: #### T SH, CMP, LIPID ####[facility] [address] [address]Dr. Rc Foster Cholesterol in HDL [Mass/Vol] 42 mg/dL Normal 40-60 [facility] Comment on above: Performed By: #### T SH, CMP, LIPID ####[facility] [address] [address]Dr. Rc Foster Cholesterol in LDL [Mass/Vol] 87.0 mg/dL Normal [facility] Comment on above: Performed By: #### T SH, CMP, LIPID ####[facility] [address] [address]Dr. Rc Foster Cholesterol.total/Cho lesterol in HDL [Mass ratio] 4.4 {ratio} Normal [facility] Comment on above: Performed By: #### T SH, CMP, LIPID ####[facility] [address] [address]Dr. Rc Foster HDL NORMAL > or = 60 mg/dl - LO W CARDIOVASCULAR RISK <40 mg/dl - HIGH CARDIOVASCULAR RISK Normal [facility] Comment on above: Performed By: #### T MARY JANE, CMP, LIPID ####[facility] [address] [address]Dr. Rc Foster LDL CALC NORMAL SEE BELOW Normal [facility] Comment on above: Result Comment: <100 mg/dl OPTIMAL 100 - 129 mg/dl NEAR OR ABOVE OPTIMAL 130 - 159 mg/dl BORDERLINE HIGH 160 - 189 mg/dl HIGH >190 mg/dl VERY HIGH Performed By: #### T SH, CMP, LIPID ####[facility] [address] [address]Dr. Rc Foster Triglyceride [Mass/Vol] 275 mg/dL Critically high <=150 [facility] Comment on above: Performed By: #### T SH, CMP, LIPID ####[facility] [address] [address]Dr. Rc Foster VLDL CALC 55.0 mg/dL Normal [facility] Comment on above: Performed By: #### T SH, CMP, LIPID ####[facility] [address] [address]Dr. Rc Foster PROF 14(COMP METB)on 022 Albumin [Mass/Vol] 4.0 g/dL Normal 3.4-5.0 [facility] Comment on above: Performed By: #### T SH, CMP, LIPID ####[facility] [address] [address]Dr. Rc Foster Albumin/Globulin [Mass ratio] 1.1 {ratio} Normal [facility] Comment on above: Performed By: #### T SH, CMP, LIPID ####[facility] [address] [address]Dr. Rc Foster ALP [Catalytic activity/Vol] 71 U/L Normal 46-116 [facility] Comment on above: Performed By: #### T SH, CMP, LIPID ####[facility] [address] [address]Dr. Rc Foster ALT [Catalytic activity/Vol] 29 U/L Normal 14-59 [facility] Comment on above: Performed By: #### T SH, CMP, LIPID ####[facility] [address] [place], [place] [address]Dr. Rc Foster Anion gap [Moles/Vol] 13.2 mmol/L Normal [facility] Comment on above: Performed By: #### T SH, CMP, LIPID ####[facility] [address] [place], [place] [address]Dr. Rc Foster AST [Catalytic activity/Vol] 17 U/L Normal 15-37 [facility] Comment on above: Performed By: #### T SH, CMP, LIPID ####[facility] [address] [address]Dr. Rc Foster Bilirubin [Mass/Vol] 0.6 mg/dL Normal 0.2-1.0 [facility] Comment on above: Performed By: #### T SH, CMP, LIPID ####[facility] [address] [address]Dr. Rc Foster Calcium [Mass/Vol] 9.0 mg/dL Normal 8.5-10.1 [facility] Comment on above: Performed By: #### T SH, CMP, LIPID ####[facility] [address] [address]Dr. Rc Foster Chloride [Moles/Vol] 102 mmol/L Normal 98-107 [facility] Comment on above: Performed By: #### T SH, CMP, LIPID ####[facility] [address] [address]Dr. Rc Foster CO2 [Moles/Vol] 27.3 mmol/L Normal 21.0-32.[address] [facility] Comment on above: Performed By: #### T SH, CMP, LIPID ####[facility] [address] [address]Dr. Rc Foster Creatinine [Mass/Vol] 1.00 mg/dL Normal 0.55-1.02 [facility] Comment on above: Performed By: #### T SH, CMP, LIPID ####[facility] [address] [address]Dr. Rc Foster EGFR-AF ROMANIAN >60 Normal >=[address] [facility] Comment on above: Performed By: #### T MARY JANE, CMP, LIPID ####[facility] [address] [address]Dr. Rc Foster EGFR-NON AF ROMANIAN 56 mL/min/1.73m2 Critically low >=60 [facility] Comment on above: Performed By: #### T MARY JANE, CMP, LIPID ####[facility] [address] [address]Dr. Rc Foster Globulin (S) [Mass/Vol] 3.5 g/dL Normal [facility] Comment on above: Performed By: #### T MARY JANE, CMP, LIPID ####[facility] [address] [address]Dr. Rc Foster Glucose [Mass/Vol] 159 mg/dL Critically high 74-106 [facility] Comment on above: Performed By: #### T SH, CMP, LIPID ####[facility] [address] [address]Dr. Rc Foster Potassium [Moles/Vol] 4.5 mmol/L Normal 3.5-5.1 [facility] Comment on above: Performed By: #### T SH, CMP, LIPID ####[facility] [address] [place], [place] [address]Hs. Rc Foster Protein [Mass/Vol] 7.5 g/dL Normal 6.4-8.2 [facility] Comment on above: Performed By: #### T SH, CMP, LIPID ####[facility] [address] [place], [place] [address]Hw. Rc Foster Sodium [Moles/Vol] 138 mmol/L Normal 136-145 [facility] Comment on above: Performed By: #### T SH, CMP, LIPID ####[facility] [address] [place], [place] [address]Cu. Rc Foster Urea nitrogen [Mass/Vol] 23.0 mg/dL Critically high 7.0-18.0 [facility] Comment on above: Performed By: #### T SH, CMP, LIPID ####[facility] [address] [place] [address]Dr. Rc Foster Urea nitrogen/Creatinine [Mass ratio] 23.0 mg/mg Normal [facility] Comment on above: Performed By: #### T SH, CMP, LIPID ####[facility] [address] [place], [place] [address]Kc. Rc Foster TSHon 03-30-2022 TSH 2.807 uIU/mL Normal 0.358-3.740 [facility] Comment on above: Performed By: #### T SH, CMP, LIPID ####[facility] [address] [place] [address]Dr. Rc Foster US THYROIDon 03-30-2022 US THYROID [...] by: BERNY CANO Date: 2022-03-30 11:03 Normal [facility] MAMM SCREEN 3D LEX CADon 03-19-2022 MAMM SCREEN 3D LEX CAD Patient: CARROLL HARDEN Exam Date: 03/19/2022 : 1960 Gender:F Ordering : DR ROBERT CRUZ D.O. Admission #: [id number] Family : Order #: [id number] CLICK HERE TO VIEW EXAM RADIOLOGY REPORT [...] Treatments None Family Cancers None LOCATION: [facility] BREAST COMPOSITION: Scattered areas fibroglandular density. [...] Cano M.D. on 03/23/2022 at 11:59 Normal [facility] CBC AUTO DIFFon 11-27-2021 BASO # 0.0 103/ul Normal 0.0-0.1 [facility] Comment on above: Performed By: #### C BC #### [facility] [address] [place] [address] Dr. Rc Foster Basophils/100 WBC (Bld) 0.7 % Normal 0.2-2.0 [facility] Comment on above: Performed By: #### C BC #### [facility] [address] [place] [address] Dr. Rc Foster EO # 0.6 103/ul Normal 0.0-0.7 [facility] Comment on above: Performed By: #### C BC #### [facility] [address] [place] [address] Dr. Rc Foster Eosinophils/100 WBC (Bld) 10.3 % Critically high 0.9-7.0 [facility] Comment on above: Performed By: #### C BC #### [facility] [address] [place] [address] Dr. Rc Foster Erythrocyte distribution width (RBC) [Ratio] 12.4 % Normal 11.0-15.0 [facility] Comment on above: Performed By: #### C BC #### [facility] [address] [place] [address] Dr. Rc Foster Hematocrit (Bld) [Volume fraction] 41.2 % Normal 36.0-48.0 [facility] Comment on above: Performed By: #### C BC #### [facility] [address] [place] [address] Dr. Rc Foster Hemoglobin (Bld) [Mass/Vol] 13.4 g/dL Normal 12.0-16.0 [facility] Comment on above: Performed By: #### C BC #### [facility] [address] [place] [address] Dr. Rc Foster IG # 0.01 10e3/ul Normal 0.00-0.03 [facility] Comment on above: Performed By: #### C BC #### [facility] [address] [place] [address] Dr. Rc Foster IG % 0.2 % Normal 0.0-0.5 [facility] Comment on above: Performed By: #### C BC #### [facility] [address] [place] [address] Dr. Rc Foster LYMPH # 2.3 103/ul Normal 1.2-3.8 [facility] Comment on above: Performed By: #### C BC #### [facility] [address] [place] [address] Dr. Rc Foster Lymphocytes/100 WBC (Bld) 40.6 % Normal 20.5-60.0 [facility] Comment on above: Performed By: #### C BC #### [facility] [address] [place] [address] Dr. Rc Foster MANUAL DIFF REQ NO Normal [facility] Comment on above: Performed By: #### C BC #### [facility] [address] [place] [address] Dr. Rc Foster MCH (RBC) [Entitic mass] 28.8 pg Normal 26.7-34.0 [facility] Comment on above: Performed By: #### C BC #### [facility] [address] [place] [address] Dr. Rc Foster MCHC (RBC) [Mass/Vol] 32.5 g/dL Normal 29.9-35.2 [facility] Comment on above: Performed By: #### C BC #### [facility] [address] [place] [address] Dr. Rc Foster MCV (RBC) [Entitic vol] 88.6 fL Normal 81.0-99.0 [facility] Comment on above: Performed By: #### C BC #### [facility] [address] [place] [address] Dr. Rc Foster MONO # 0.4 103/ul Normal 0.3-0.8 [facility] Comment on above: Performed By: #### C BC #### [facility] [address] [place] [address] Dr. Rc Foster Monocytes/100 WBC (Bld) 7.6 % Normal 1.7-12.0 [facility] Comment on above: Performed By: #### C BC #### [facility] [address] [address] [address] Rc Foster NEUT # 2.3 103/ul Normal 1.4-6.5 [facility] Comment on above: Performed By: #### C BC #### [facility] [address] [address] [address] Rc Foster Neutrophils/100 WBC (Bld) 40.6 % Critically low 43.0-75.0 [facility] Comment on above: Performed By: #### C BC #### [facility] [address] [address] [address] Rc Fostre Platelet mean volume (Bld) [Entitic vol] 9.6 fL Normal 9.5-13.5 [facility] Comment on above: Performed By: #### C BC #### [facility] [address] [place] [address] Dr. Rc Foster PLT 194 103/ul Normal 150-450 [facility] Comment on above: Performed By: #### C BC #### [facility] [address] [address] [address] Rc Foster RBC 4.65 106/ul Normal 4.20-5.40 [facility] Comment on above: Performed By: #### C BC #### [facility] [address] [place] [address] Dr. Rc Foster WBC 5.5 103/ul Normal 4.0-11.0 [facility] Comment on above: Performed By: #### C BC #### [facility] [address] [place] [address] Dr. Rc Foster GLYCOHEMOGLOBIN A1Con 2021 ADA RECOMMENDATION SEE BELOW Normal [facility] Comment on above: Result Comment: ADA RECOMMENDED LIMIT 4.0 - 6.0 ADA THERAPEUTIC TARGET < 7.0 ACTION SUGGESTED > 7.0 Performed By: #### A 1C #### [facility] [address] [address] [address] Rc Foster Glucose [Mass/Vol] 131 mg/dL Normal [facility] Comment on above: Performed By: #### A 1C #### [facility] [address] [place] [address] Dr. Rc Foster HbA1c (Bld) [Mass fraction] 6.2 % Normal 4.5-6.2 [facility] Comment on above: Performed By: #### A 1C #### [facility] [address] [place] [address] Dr. Rc Foster PROF CHEM 8 (BAS METB)on Anion gap [Moles/Vol] 15.2 mmol/L Normal [facility] Comment on above: Performed By: #### T MARY JANE, BMP #### [facility] [address] [place] [address] Dr. Rc Foster Calcium [Mass/Vol] 8.5 mg/dL Normal 8.5-10.1 [facility] Comment on above: Performed By: #### T MARY JANE, BMP #### [facility] [address] [place] [address] Dr. Rc Foster Chloride [Moles/Vol] 100 mmol/L Normal 98-107 [facility] Comment on above: Performed By: #### T MARY JANE, BMP #### [facility] [address] [place] [address] Dr. Rc Foster CO2 [Moles/Vol] 26.6 mmol/L Normal 21.0-32.0 [facility] Comment on above: Performed By: #### T MARY JANE, BMP #### [facility] [address] [place] [address] Dr. Rc Foster Creatinine [Mass/Vol] 1.15 mg/dL Critically high 0.55-1.02 [facility] Comment on above: Performed By: #### T MARY JANE, BMP #### [facility] [address] [place] [address] Dr. Rc Foster EGFR-AF ROMANIAN 58 mL/min/1.73m2 Critically low >=60 [facility] Comment on above: Performed By: #### T MARYJ ANE, BMP #### [facility] [address] [place] [address] Dr. Rc Foster EGFR-NON AF ROMANIAN 48 mL/min/1.73m2 Critically low >=60 [facility] Comment on above: Performed By: #### T SH, BMP #### [facility] [address] [place] [address] Dr. Rc Foster Glucose [Mass/Vol] 211 mg/dL Critically high 74-106 [facility] Comment on above: Performed By: #### T MARY JANE, BMP #### [facility] [address] [place] [address] Dr. Rc Foster Potassium [Moles/Vol] 4.8 mmol/L Normal 3.5-5.1 [facility] Comment on above: Performed By: #### T MARY JANE, BMP #### [facility] [address] [place] [address] Dr. Rc Foster Sodium [Moles/Vol] 137 mmol/L Normal 136-145 [facility] Comment on above: Performed By: #### T MARY JANE, BMP #### [facility] [address] [place] [address] Dr. Rc Foster Urea nitrogen [Mass/Vol] 33.0 mg/dL Critically high 7.0-18.0 [facility] Comment on above: Performed By: #### T MARY JANE, BMP #### [facility] [address] [place] [address] Dr. Rc Foster Urea nitrogen/Creatinine [Mass ratio] 28.7 mg/mg Normal [facility] Comment on above: Performed By: #### T MARY JANE, BMP #### [facility] [address] [place] [address] Dr. Rc Foster TSHon 11-27-2021 TSH 0.744 uIU/mL Normal 0.358-3.740 [facility] Comment on above: Performed By: #### T MARY JANE, BMP #### [facility] [address] [place] [address] Dr. Rc Foster SYMPTOMATIC COVID-19 ANTIGEN on 10-28-2021 EUA Statement SEE BELOW Normal [facility] Comment on above: Result Comment: This [...] revoked sooner. Performed By: #### C ELPIDIOS ####[facility] [address] [place] [address]Dr. Rc Foster SARS-CoV-2 (COVID-19) RNA YARED+probe Ql (Unsp spec) Negative Normal NEGATIVE [facility] Comment on above: Performed By: #### C VDAGS ####[facility] [address] [place] [address]Dr. Rc Foster GLYCOHEMOGLOBIN A1Con 2021 ADA RECOMMENDATION SEE BELOW Normal [facility] Comment on above: Result Comment: ADA RECOMMENDED LIMIT 4.0 - 6.0 ADA THERAPEUTIC TARGET < 7.0 ACTION SUGGESTED > 7.0 Performed By: #### A 1C #### [facility] [address] [place] [address] Dr. Rc Foster Glucose [Mass/Vol] 128 mg/dL Normal [facility] Comment on above: Performed By: #### A 1C #### [facility] [address] [address] [address] Rc Foster HbA1c (Bld) [Mass fraction] 6.1 % Normal 4.5-6.2 [facility] Comment on above: Performed By: #### A 1C #### [facility] [address] [place] [address] Dr. Rc Foster Discharge CCD Assessmenton 0 09-06-2020 Discharge CCD Assessment [facility] Patient: CARROLL HARDEN [address] [place] [address] MR#: [id number] DISCHARGE CCD ASSESSMENT : 58 Service Date: 09/06/20 1018 Discharge CCD Assessment Assessment Patient discharged home to continue exercises, pain medication, and wound care Electronically Signed eSign Date and Time Melyssa Flores 09/06/20 1019 Tera Hernandez MD Normal [facility] GLUCOSE METERon 09-06-2020 Glucose [Mass/Vol] 126 mg/dL High 70-99 [facility] Comment on above: Order Comment: CONSE RVATION Result Comment: Fast ing GLUCOSE reference range has been updated per (ADA) [place] [employer]'s recommendation. 07/18/2018 Performed By: #### L 500.19549 ####Test performed at: [place] [address] Glucose [Mass/Vol] 205 mg/dL High 70-99 [facility] Comment on above: Order Comment: CONSE RVATION Result Comment: Fast ing GLUCOSE reference range has been updated per (ADA) [place] [employer]'s recommendation. 07/18/2018 Insulin per sl scale Performed By: #### L 500.52057 #### Test performed at: [place] [address] Internal Med Progress Noteon 09-06-2020 Internal Med Progress Note [facility] Patient: CARROLL HARDEN [address] [place] [address] MR#: [id number] PROGRESS NOTE - Internal Medicine : 58 [...] Flanagan RES, Katarzyna MD 09/06/20 1134 Normal [facility] Orthopedic Progress Noteon 0 09-06-2020 Orthopedic Progress Note [facility] Patient: CARROLL HARDEN [address] [place] [address] MR#: [id number] PROGRESS NOTE - Orthopedic : 58 Service [...] RN 09/06/20 1022 Tera Hernandez MD Normal [facility] Anesthesia Noteon 09-05-2020 Anesthesia Note [facility] Patient: CARROLL HARDEN [address] [place], [place] [id number] MR#: [id number] ANESTHESIA NOTE : Service Date: 09/05/20 08 [...] Signed eSign Date and Time Krystian Akers 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37236, L500.73909 #### Test performed at: [address] [address] CO2 [Moles/Vol] 25 mmol/L Normal 21-32 [facility] Comment on above: Performed By: #### L 500.54736, L500.96641 #### Test performed at: [address] [address] Creatinine [Mass/Vol] 1.020 mg/dL Normal 0.550-1.020 [facility] Comment on above: Performed By: #### L 500.40074, L500.96461 #### Test performed at: [address] [address] Glucose [Mass/Vol] 264 mg/dL High 70-99 [facility] Comment on above: Result Comment: Fast ing GLUCOSE reference range has been updated per (ADA) [place] [employer]'s recommendation. 07/18/2018 Performed By: #### L 500.84086, L500.66691 #### Test performed at: [address] [address] OSM 289 mosm/kg Normal 270-300 [facility] Comment on above: Performed By: #### L 500.18691, L500.80731 #### Test performed at: [address] [address] Potassium [Moles/Vol] 4.5 mmol/L Normal 3.5-5.1 [facility] Comment on above: Performed By: #### L 500.12236, L500.36199 #### Test performed at: [address] [address] Sodium [Moles/Vol] 134 mmol/L Low 136-145 [facility] Comment on above: Performed By: #### L 500.91660, L500.00712 #### Test performed at: [address] [address] Urea nitrogen [Mass/Vol] 17 mg/dL Normal 7-18 [facility] Comment on above: Performed By: #### L 500.11618, L500.25209 #### Test performed at: [address] [address] GFR ESTIMATEon 09-05-2020 IF AMER > 60 Normal > 60 [facility] Comment on above: Result Comment: eGFR (Estimated GFR) Units of measure:mL/min/1.73 meters sq. *CALCULATION REVISED 02/11/2015;IDMS-traceable MDRD equation eGFR is derived from the reexpressed MDRD Study equation using the following parameters: serum creatinine, age, gender and race. An eGFR<60 mL/min/1.73m2 for >3 months is consistent with chronic kidney disease. Refer to KDOQI guidelines for clinical interpretation. Performed By: #### L 500.22142, L500.62405 #### Test performed at: [place] [address] IF non-AFR AMER 55 Low > 60 [facility] Comment on above: Performed By: #### L 500.93931, L500.41570 #### Test performed at: [address] [address] GLUCOSE METERon 09-05-2020 Glucose [Mass/Vol] 177 mg/dL High 70-99 [facility] Comment on above: Order Comment: CONSE RVATION Result Comment: Fast ing GLUCOSE reference range has been updated per (ADA) [place] [employer]'s recommendation. 07/18/2018 Performed By: #### L 500.66176 #### Test performed at: [address] [address] Glucose [Mass/Vol] 310 mg/dL High 70-99 [facility] Comment on above: Result Comment: Fast ing GLUCOSE reference range has been updated per (ADA) [place] Diabetes [employer]'s recommendation. 07/18/2018 Insulin per sl scale Performed By: #### L 500.27752 ####Test performed at: [address] [address] Glucose [Mass/Vol] 281 mg/dL High 70-99 [facility] Comment on above: Result Comment: Fast ing GLUCOSE reference range has been updated per (ADA) [place] Diabetes [employer]'s recommendation. 07/18/2018 Insulin per sl scale Performed By: #### L 500.35643 #### Test performed at: [place] [address] Glucose [Mass/Vol] 105 mg/dL High 70-99 [facility] Comment on above: Result Comment: Fast ing GLUCOSE reference range has been updated per (ADA) [place] [employer]'s recommendation. 07/18/2018 Performed By: #### L 500.35067 #### Test performed at: [place] [address] HGB AND HCTon 09-05-2020 Hematocrit (Bld) [Volume fraction] 37.5 % Normal 36.0-48.0 [facility] Comment on above: Performed By: #### L 200.88577 #### Test performed at: [place] [address] Hemoglobin (Bld) [Mass/Vol] 12.5 g/dL Normal 12.0-15.0 [facility] Comment on above: Performed By: #### L 200.78211 #### Test performed at: [place] [address] Internal Med Progress Noteon 09-05-2020 Internal Med Progress Note [facility] Patient: CARROLL HARDEN [address] [place] [address] MR#: [id number] PROGRESS NOTE - Internal Medicine : 58 [...] input. Disc (more content not included)... Normal [facility] OT Therapy Recommendationson 09-05-2020 OT Therapy Recommendations [facility] Patient: CARROLL HARDEN [address] [place], [place] [address] MR#: [id number] OT THERAPY RECOMMENDATIONS : 58 Service Date: 09/05/20 151 Therapy Recommendations Therapy Recommendations Recommendations OT evaluation completed. OT recommends HOME with FAmily assist. No further acute OT needs are indicated at this time. Electronically Signed eSign Date and Time Trupti Rojas OT 09/05/20 1512 Normal [facility] Orthopedic Progress Noteon 0 09-05-2020 Orthopedic Progress Note [facility] Patient: CARROLL HARDEN [address] [place], [place] [id number] MR#: [id number] PROGRESS NOTE - Orthopedic : 58 Service [...] KHAN 09/05/20 1429 Tera Hernandez MD Normal [facility] PT Therapy Recommendationson 09-05-2020 PT Therapy Recommendations [facility] Patient: CARROLL HARDEN [address] [place] [address] MR#: [id number] PT THERAPY RECOMMENDATIONS : 58 Service Date: 09/05/20 0914 Therapy Recommendations Therapy Recommendations Recommendations PT eval complete. No further acute PT needs. Recommend d/c home /c family assist. Electronically Signed eSign Date and Time Tiffanie Bashir PT 09/05/20 0914 Normal [facility] z OT Inpatient Discharge Not juan 09-05-2020 z OT Inpatient Discharge Note [facility] Patient: CARROLL HARDEN [address] [id number] MR#: [id number] OT INPATIENT DISCHARGE NOTE : 58 Service [...] Time Trupti Rojas OT 09/05/20 1534 Normal [facility] z OT Inpatient Evaluationon 09-05-2020 z OT Inpatient Evaluation [facility] Patient: CARROLL HARDEN [address] [place] [address] MR#: [id number] OT INPATIENT EVALUATION : 58 Inpatient OT HPI Date of Service 09/05/20 Time In: 1401 Time Out: 1412 Total Treatment Time (Mins) 11 Visit Reason LATERAL RECESS STENOSIS W/ RADICULOPATHY Surgery Type/Date s/p L L4-5 LAmi, foraminotomy, decompression on 09.04.20/ Lumbar spine precautions Referral Date 09/04/20 Tx Diagnosis: LOW BACK PAIN Insurance Name [employer] [facility] Hospital Course Pt is [...] 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 Objective Precautions Lumbar Spine [...] Excellent Nader (more content not included)... Normal [facility] z PT Inpatient Discharge Not juan 09-05-2020 z PT Inpatient Discharge Note [facility] Patient: CARROLL HARDEN [address] [id number] MR#: [id number] PT INPATIENT DISCHARGE NOTE : 58 Service [...] Time Tiffanie Bashir PT 09/05/20 1139 Normal [facility] z PT Inpatient Evaluationon 09-05-2020 z PT Inpatient Evaluation [facility] Patient: CARROLL HARDEN [address] [place] [address] MR#: [id number] PT INPATIENT EVALUATION : 58 Service Date: 09/05/20 0928 Inpatient PT HPI Date of Service 09/05/20 Time In: 0845 Time Out: 0907 Total Treatment Time (Mins) 22 Room Number 624 Visit Reason LATERAL RECESS STENOSIS W/ RADICULOPATHY Surgery Type: L L4-5 lami, foraminotomy, decompression Surgery Date: 09/04/20 Referral Date 09/04/20 Tx Diagnosis: LOW BACK PAIN Insurance Name [facility] Hospital Course 60 y.o female at [facility] for above sx d/t lateral recess stenosis [...] posture. 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 Pt agreeable to use of her cane [...] Time Tiffanie Bashir PT 09/05/20 1502 Normal [facility] GLUCOSE METERon 09-04-2020 Glucose [Mass/Vol] 94 mg/dL Normal 70-99 [facility] Comment on above: Result Comment: Fast ing GLUCOSE reference range has been updated per (ADA) [employer] [place] [employer]'s recommendation. 07/18/2018 Performed By: #### L 500.59514 ####Test performed at: [place] [address] Internal Medicine Consultati onon 09-04-2020 Internal Medicine Consultation [facility] Patient: CARROLL HARDEN [address] [place] [address] MR#: [id number] CONSULTATION - Internal Medicine : 58 Service [...] of Systems (more content not included)... Normal [facility] OPERATIVE REPORTon OPERATIVE REPORT NAME: CARROLL HARDEN MR#: [id number] SURGEON: Tera Hernandez MD DATE OF SURGERY: [...] there were no complications. TERA HERNANDEZ MD [facility] PT NAME: CARROLL HARDEN MR#: [id number] [address] [place] [address] ACCT: [id number] : 58 OPERATIVE REPORT [id number] E/S: Tera Hernandez MD 09/18/20 1207 Electronically Signed [facility] PT NAME: CARROLL HARDEN MR#: [id number] [address] [place], [place] [id number] ACCT: [id number] : 58 OPERATIVE REPORT Normal [facility] Primary Residenton 1 Primary Resident [facility] Pt Name: CARROLL HARDEN MR#: [id number] [address] [place] [address] ACCT: [id number] [place] [id number] : 58 Service Date: 09/04/20 1603 Primary Resident/Call Primary Resident: [id number] After Hours Call: [phone] Red Team Electronically Signed eSign Date and Time Ana Flanagan RES 09/16/20 1521 Normal [facility] LUMBAR SPINE 2 OR 3 VIEWSon 09-03-2020 LUMBAR SPINE 2 OR 3 VIEWS STUDY: LUMBAR SPINE 2 OR 3 VIEWS; 09/04/2020 2:57 pm INDICATION: LEFT L4-L5 LAMINECTOMY,FORAMINOTOMY ,DECOMPRESSION. COMPARISON: None. ACCESSION NUMBER(S): [id number] ORDERING CLINICIAN: Tera Hernandez FINDINGS: Intraoperative fluoroscopy of the lumbar spine demonstrates surgical instruments posterior to L5. IMPRESSION: As above Normal [facility] CHEST PA/AP & LATERALon CHEST PA/AP & LATERAL STUDY: CHEST PA/AP LATERAL; 08/25/2020 11:00 am INDICATION: SOB/PAT. COMPARISON: None. ACCESSION NUMBER(S): [id number] ORDERING CLINICIAN: Madelyn Leslie FINDINGS: The lungs are clear without pleural effusion. Normal heart size, mediastinum, elzbieta, and pulmonary vasculature. IMPRESSION: No active disease in the chest. Normal [facility] CONSULTATION REPORTon 2020 CONSULTATION REPORT NAME: CARROLL HARDEN MR#: [id number] OIL SCOUT: Madelyn Leslie MD DATE OF CONSULTATION: 08/25/2020 [...] pulse ox is 98% on room air. [facility] PT NAME: CARROLL HARDEN MR#: [id number] [address] [place] [address] ACCT: [id number] : 58 CONSULTATION HEENT: Atraumatic head. Pupils [...] we are getting the results from her soda tester in [place]. IMPRESSION: 1. Preop clearance for L4-L5 disk [...] courtesy of this consultation. MEANDRZEJ LESLIE MD MS/MODL/[id number] E/S: Madelyn Leslie MD 08/26/20 1750 Electronically Signed [facility] PT NAME: CARROLL HARDEN MR#: [id number] [address] [place] [address] ACCT: [id number] : 58 CONSULTATION Normal [facility] LUMB SP COMP W FLEX/EXT 6 VW S>on 08-08-2020 LUMB SP COMP W FLEX/EXT 6 VWS> STUDY: LUMB SP COMP W FLEX/EXT 6 VWS>; 08/08/2020 9:43 am INDICATION: BACK PAIN. COMPARISON: No available comparisons. ACCESSION NUMBER(S): [id number] ORDERING CLINICIAN: Tera Hernandez TECHNIQUE: 6 views [...] L5-S1 level. No evidence of instability.. Normal [facility] XR SHLDR >/=3V AP/RUSH AP/OTH [...] on Jul 03 2018 10:17AM EST [id number] [facility] ANES Holly 06-20-2018 ANES POST HNO ID: [id number] Author: Rohit Velarde Service: Anesthesiology Author Type: [...] 20, 2018 TIME: 2:38 PM PAGER/CONTACT #: [facility] ANES PREOPon 06-20-2018 ANES PREOP HNO ID: [id number] Author: Rohit Velarde Service: Anesthesiology Author Type: [...] 5-30 mL/hr INTRAVENOUS CONTINUOUS Isreal Mccabe (Santos) Accokeek ceFAZolin iv piggyback 2 g in D5W [...] June 20, 2018 TIME: 9:35 AM CSN: [id number] [facility] BRIEF OP NOTon 06-20-2018 BRIEF OP NOT HNO ID: [id number] Author: Kusum Francisco Service: Orthopaedic Surgery Author Type: Resident Type: Brief Op Note Filed: 06/20/2018 5:49 PM Note Text: BRIEF OP NOTE LOG ID: [id number] Surgery/Procedure Date: 06/20/2018 Incision/Procedure Start Time: 11:18 AM Incision Close/Procedure End Time: 1:17 PM Surgeon(s)/Proceduralist (s) and Synchronous Motor Assembler(s): Surgeon(s) and Role: * Jenna Lentz - [...] 20, 2018 TIME: 5:49 PM PAGER/CONTACT #: [facility] CASE MANAGEMon 06-20-2018 CASE MANAGEM HNO ID: [id number] Author: May Herrera (Sw) Service: Care Management Author Type: Public Policy Manager Type: Care Mgt Progress Note Filed: [...] is pcp summary of care sent via [facility] () Nurse to provide discharge instructions. TRANSPORTATION ARRANGEMENTS: Car Spouse ADDITIONAL CONTACT RESOURCES: Needs Prior to Discharge: Ready for Discharge Appointments for Next 45 Days Date Time Provider Location Dept Phone 07/03/2018 10:00 AM CAROLA BAPTISTE AT [phone] 07/03/2018 10:30 AM GABRIEL CANTU) LATOSHA AT [phone] 07/31/2018 2:15 PM JENNA LENTZ AT [phone] Pt to be discharged home to follow up as above. 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 O.Therapy recommend home. Spouse visiting at bedside and will transport pt home later today.Further discharge needs not anticipated.SW/TCC to follow to assist with plans for discharge. SIGNATURE: DARIO Saini PATIENT NAME: Carroll Harden DATE: June 20, 2018 TIME: 5:27 PM PAGER/CONTACT #: [phone] [facility] CONSULTon 06-20-2018 CONSULT HNO ID: [id number] Author: Dulce Green Service: General Internal Medicine [...] Disp: Rfl: 06/19/2018 at 0630 rizatriptan (MAXALT BAR PILOT) 10 mg disintegrating tablet DISSOLVE 1 TABLET [...] care of your patient. Dulce Green, JOSE E.GAS TORCH BRAZIER June 20, 2018 4:34 PM Normal [facility] NURSING PROGon 06-20-2018 Protein mass conc HNO ID: [id number] Author: Fela (Rn) FLETCHER Phillips Service: (none) Author Type: Registered Nurse Type: Nursing Progress Note Filed: 06/20/2018 7:39 PM Note Text: Nursing Progress Note Patient Name: Carroll Harden Patient Location: [place] [address]/ [place]-* Daily Note: 1545. Care assumed. Pt resting [...] at bedside. 1720. Dr. Blake and Dulce QA SOFTWARE TEST ENGINEER at bedside, plan is to stay [...] note was completed by: Fela Phillips RN [facility] Protein mass conc HNO ID: [id number] Author: Wendy ValenciaRn) FLETCHER Underwood Service: Nursing Author Type: Registered Nurse Type: Nursing Progress Note Filed: 06/20/2018 10:20 AM Note Text: Nursing Progress Note Patient Name: Carroll Harden Patient Location: SURGERY [facility] Daily Note:Right interscalene nerve block with ultrasound guidance with Dr. Velarde and Dr. Marlow at bedside. Patient tolerated procedure well, VSS, will continue to monitor as we wait for OR team. Resting comfortably with no complaints of pain at this time. This note was completed by: Wendy Underwood RN [facility] OPERATIVE NOon 06-20-2018 OPERATIVE NO HNO ID: [id number] Author: Jenna Lnetz Service: Orthopaedic Surgery Author Type: Physician Type: Operative Report Filed: 06/20/2018 1:25 PM Note Text: [place] [id number] [place] OPERATIVE REPORT [facility] [id number] DATE: 06/20/2018 (11:18am-1:17pm) AGE: 58 SURGEON 1: Jenna Lentz M.D. RF MICROWAVE ENGINEER: 1. Augie Coates M.D. 2. Kusum Prasad M.D. 3. Mundo Pablo OPERATION: Right total shoulder arthroplasty, biceps tenodesis. ANESTHESIA: General anesthesia with regional interscalene nerve block for postoperative pain control. PREOPERATIVE DIAGNOSIS: Right shoulder primary glenohumeral osteoarthritis. POSTOPERATIVE DIAGNOSIS: Right shoulder primary glenohumeral osteoarthritis, biceps tendinopathy. OPERATIVE INDICATIONS: The patient is a 58 year oldiee-ouwp-ycp right-hand dominant white female who has a [...] rotator interval stitch was then passed in ioyfnu-cr-gfrpf fashion with a #2 Ticron suture and tied down to close the lateral rotator interval and set the osteotomy superiorly. The two #2 Fiberwire sutures coming out of the bicipital groove were then sequentially passed in a hxecni-gh-tnpag fashion medial to the horizontal mattress and [...] none COMPLICATIONS: none apparent Jenna Lentz M.D. [facility] PT EDon 06-20-2018 PT ED HNO ID: [id number] Author: Cindy ValenciaRnTyesha Griffin RN Service: (none) [...] By: Cindy Griffin RN In Department: [facility] THERAPY NTon 06-20-2018 THERAPY NT HNO ID: [id number] Author: Abi Phillips Service: Occupational Therapy Author Type: Occupational Therapist Type: Therapy (PT/OT/Speech/Resp) Filed: 06/20/2018 4:59 PM Note Text: Occupational Therapy Evaluation SERVICE DATE: 06/20/2018 SERVICE TIME: 1550 to 1640 ROOM: [facility] [id number] Recommended Discharge Disposition: Home Anticipated [...] daily living (ADL) Interventions Provided: Evaluation;Therapeutic Exercise (99416);Self Halfway Management (81754) $ Evaluation-Low (23392) Billed Units: 1 unit Therapeutic Exercise (36683) Treatment Minutes: 10 1 unit Skilled Intervention(s): Education in Self Halfway Management (21737) Treatment Minutes: 28 2 units Skilled Intervention(s): [...] Environment Patient Lives With: Spouse 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 Number Of Stairs To Bed/Bath: 0 Equipment [...] DATE: June 20, 2018 TIME: 4:54 PM [facility] XR SHOULDER 2V AP/TRUE AP [...] on Jun 20 2018 2:04PM EST [id number] [facility] NURSING PROGon 06-09-2018 Protein mass conc HNO ID: [id number] Author: Ivana (Rn) FLETCHER Heller Service: Nursing [...] 2018 11:10 AM Addendum 06/15/18 EKG IN [facility] FINAL Ivana Heller RN June 15, 2018 4:39 PM Normal [facility] Type and SCR (30D)on 019 ABO/RH(D) Positive Normal [facility] HOSPon 04-28-2018 HOSP Patient:Adalberto Harden MRN: Height:5' 2 (1.575 m) Weight:186 lb (84.369 kg) Outpatient Medications as of 06/20/18: calcium phosphate dibas/vit D3 (VITAMIN D, WITH CALCIUM, ORAL) docusate sodium (COLACE) 100 mg capsule aspirin, enteric coated (ECOTRIN LOW STRENGTH) 81 mg EC tablet oxyCODONE-acetaminophen (PERCOCET) 5-325 mg tablet rizatriptan (MAXALT BAR PILOT) 10 mg disintegrating tablet mupirocin (BACTROBAN) 2 [...] 36.0 Progress Notes (RADIO CT SCAN [facility]): RT Lillian, Tech 06/07/2018 10:04 AM Sign [...] Lillian June 07, 2018 9:54 AM Normal [facility] Vital Signs Date Time Vital Sign Value Performing Clinician Facility 06-25-2024 10:11-0500 Body temperature 97.3 [degF] [facility] 06-25-2024 10:11-0500 Diastolic blood pressure 76 mm[Hg] [facility] 06-25-2024 10:11-0500 Heart rate 54 /min [facility] 06-25-2024 10:11-0500 Respiratory rate 16 /min [facility] 06-25-2024 10:11-0500 SaO2% (BldA) [Mass fraction] 98 % [facility] 06-25-2024 10:11-0500 Systolic blood pressure 119 mm[Hg] [facility] 06-25-2024 10:07-0500 Body height 154.94 cm [facility] 06-25-2024 10:07-0500 Body mass index (BMI) [Ratio] 32.9 kg/m2 [facility] 06-25-2024 10:07-0500 Body weight 79.15 kg [facility] 02-24-2024 14:13-0400 Body height 154.94 cm [facility] 02-24-2024 14:13-0400 Body mass index (BMI) [Ratio] 33.1 kg/m2 [facility] 02-24-2024 14:13-0400 Body temperature 96 [degF] [facility] 02-24-2024 14:13-0400 Body weight 79.6 kg [facility] 02-24-2024 14:13-0400 Diastolic blood pressure 84 mm[Hg] [facility] 02-24-2024 14:13-0400 Heart rate 66 /min [facility] 02-24-2024 14:13-0400 Systolic blood pressure 159 mm[Hg] [facility] 12-20-2023 15:35-0400 Body height 154.94 cm [facility] 12-20-2023 15:35-0400 Body mass index (BMI) [Ratio] 33.8 kg/m2 [facility] 12-20-2023 15:35-0400 Body weight 81.19 kg [facility] 12-20-2023 15:35-0400 Diastolic blood pressure 80 mm[Hg] [facility] 12-20-2023 15:35-0400 Heart rate 78 /min [facility] 12-20-2023 15:35-0400 Respiratory rate 12 /min [facility] 12-20-2023 15:35-0400 Systolic blood pressure 134 mm[Hg] [facility] 04-29-2023 09:00-0500 Body height 154.94 cm Robert Ball Other [facility] Other 04-29-2023 09:00-0500 Body mass index (BMI) [Ratio] 33.14 kg/m2 Robert Ball Other [facility] Other 04-29-2023 09:00-0500 Body weight 79.56 kg Robert Ball Other [facility] Other 04-29-2023 09:00-0500 Diastolic blood pressure 89 mm[Hg] Robert Ball Other [facility] Other 04-29-2023 09:00-0500 Respiratory rate 12 /min Robert Ball Other [facility] Other 04-29-2023 09:00-0500 Systolic blood pressure 155 mm[Hg] Robert Ball Other [facility] Other 12-20-2022 13:45-0400 Body height 154.94 cm Robert Ball Other [facility] Other 12-20-2022 13:45-0400 Body mass index (BMI) [Ratio] 34.12 kg/m2 Robert Ball Other [facility] Other 12-20-2022 13:45-0400 Body weight 81.92 kg Robert Ball Other [facility] Other 12-20-2022 13:45-0400 Diastolic blood pressure 96 mm[Hg] Robert Ball Other [facility] Other 12-20-2022 13:45-0400 Respiratory rate 12 /min Robert Ball Other [facility] Other 12-20-2022 13:45-0400 Systolic blood pressure 179 mm[Hg] Robert Ball Other [facility] Other 08-04-2022 09:45-0400 Body height 154.94 cm Robert Ball Other [facility] Other 08-04-2022 09:45-0400 Body mass index (BMI) [Ratio] 33.33 kg/m2 Robert Ball Other [facility] Other 08-04-2022 09:45-0400 Body weight 80.02 kg Robert Ball Other [facility] Other 08-04-2022 09:45-0400 Diastolic blood pressure 77 mm[Hg] Robert Ball Other [facility] Other 08-04-2022 09:45-0400 Respiratory rate 12 /min Robert Ball Other [facility] Other 08-04-2022 09:45-0400 Systolic blood pressure 128 mm[Hg] Robert Ball Other [facility] Other Encounters Encounter Date Encounter Type Care Provider Facility Start: 06-25-2024 End: 06-25-2024 ambulatory [facility] Work Phone: Start: 06-25-2024 End: 06-25-[address] [facility] Work Phone: Start: 06-21-2024 ambulatory [facility] Facility:O replaced by [facility] Start: 06-01-2024 Non-patient / Non-visit [facility] Work Phone: Start: 05-31-2024 Non-patient / Non-visit [facility] Physician [facility] Work Phone: Start: 04-09-2024 End: 04-09-2024 ambulatory Miriam Barron MD Facility: [facility] Start: 02-24-2024 End: 02-24-2024 ambulatory [facility] Work Phone: Start: 02-24-2024 End: 02-24-[address] [facility] Phys[facility] Work Phone: Start: 02-22-2024 Non-patient / Non-visit [facility] Physician [facility] Work Phone: Start: 12-27-2023 Non-patient / Non-visit [facility] Physician [facility] [employer] Work Phone: Start: 12-20-2023 Patient encounter status [facility] Start: 12-20-2023 End: 12-20-2023 ambulatory [facility] Work Phone: Start: 12-20-2023 End: 12-20-2023 Patient encounter procedure [facility] Work Phone: Start: 09-26-2023 End: 09-26-2023 ambulatory Miriam Barron MD Facility: [facility] Start: 08-15-2023 End: 08-15-2023 ambulatory Miriam Barron MD Facility: [facility] Start: 08-08-2023 End: 08-08-2023 ambulatory Miriam Barron MD Facility: [facility] Start: 06-27-2023 End: 06-27-2023 ambulatory Miriam Barron MD Facility: [facility] Start: 06-06-2023 End: 06-06-2023 ambulatory Miriam Barron MD Facility: [facility] Start: 06-01-2023 End: 06-01-2023 ambulatory Robert Cruz Other [facility] Other Start: 06-01-2023 Telephone encounter Robert CHAVARRIA [facility] Start: 05-23-2023 End: 05-23-2023 ambulatory Miriam Barron MD Facility: [facility] Start: 05-13-2023 End: 05-13-2023 ambulatory Robert Cruz Other [facility] Other Start: 05-13-2023 Telephone encounter Robert CHAVARRIA [facility] Start: 05-09-2023 End: 05-09-2023 ambulatory Robert Cruz Other [facility] Other Start: 05-09-2023 Telephone encounter Robert CHAVARRIA [facility] Start: 05-04-2023 End: 05-04-2023 ambulatory Robert Cruz Other [facility] Other Start: 05-04-2023 Telephone encounter Robert Cruz [facility] Start: 05-02-2023 End: 05-02-2023 ambulatory Robert Cruz Other [facility] Other Start: 05-02-2023 Telephone encounter Robert CHAVARRIA [facility] Start: 04-29-2023 End: 04-29-2023 ambulatory Robert Cruz Other [facility] Other Start: 04-29-2023 Office outpatient vi sit 15 minutes Robert Hamilton [facility] Start: 04-04-2023 End: 04-04-2023 ambulatory Robert Cruz Other [facility] Other Start: 04-04-2023 Telephone encounter Robert CHAVARRIA [facility] Start: 01-24-2023 End: 01-24-2023 ambulatory Robert Cruz Other [facility] Other Start: 01-24-2023 Telephone encounter Robert Cruz [facility] Start: 12-23-2022 End: 12-23-2022 ambulatory Robert Ball Other [facility] Other Start: 12-23-2022 Telephone encounter Robert Cruz [facility] Start: 12-20-2022 End: 12-20-2022 ambulatory Robert Cruz Other [facility] Other Start: 12-20-2022 Office outpatient vi sit 15 minutes Robert Cruz [facility] Start: 12-17-2022 End: 12-17-2022 ambulatory Robert Cruz Other [facility] Other Start: 12-17-2022 Telephone encounter Robert Cruz [facility] Start: 11-08-2022 End: 11-08-2022 ambulatory Robert Cruz Other [facility] Other Start: 11-08-2022 Telephone encounter Robert Cruz [facility] Start: 10-22-2022 End: 10-22-2022 ambulatory Robert Cruz Other [facility] Other Start: 10-22-2022 Telephone encounter Robert Cruz [facility] Start: 10-13-2022 End: 10-13-2022 ambulatory Robert Cruz Other [facility] Other Start: 10-13-2022 Telephone encounter Robert Cruz [facility] Start: 09-27-2022 End: 09-27-2022 ambulatory Robert Cruz Other [facility] Other Start: 09-27-2022 Telephone encounter Robert Cruz [facility] Start: 08-23-2022 End: 08-24-[address] RISHI PARKER Facility:[facility] Start: 08-04-2022 End: 08-04-2022 ambulatory Robert Hamilton Other [facility] Other Start: 08-04-2022 Office outpatient vi sit 25 minutes Robert Hamilton [facility] Start: 04-03-2022 Encounter for genera l adult medical examination without abnormal findings DR ROBERT CRUZ [facility] Start: 03-30-2022 End: 03-31-[address] [...] Start: 07-03-2018 End: 07-03-2018 Patient encounter procedure [facility] Start: 06-20-2018 End: 06-20-2018 Evaluation and management of inpatient [facility] Procedures Date Procedure Procedure Detail Performing Clinician Start: 06-07-2018 Antibody screen [facility] CCHETTI Plan of Treatment Date Care Activity Detail Author Comprehensive metabo lic 2000 panel - Serum or Plasma [facility] enter MG Breast - bilateral Diagnostic [facility] Payers Date Payer Category Payer Unknown 2022 Blue Cross Blue [facility] [id number] 2019 Unknown [id number] 2015 Unknown [id number] 1959 Self-pay [id number] 1959 Unknown [id number] 2..840.1.227304.3.579.2.5 93 1959 Unknown [id number] 2..840.1.266515.3.579.2.5 93 1959 Unknown [id number] 2..840.1.073659.3.579.2.5 93 1959 Unknown [id number] 2..840.1.529839.3.579.2.5 93 1959 Unknown [id number] 2.16.840.1.387268.3.579.2.5 93 1959 Unknown [id number] 2.16.840.1.938692.3.579.2.5 93 1959 Unknown [id number] 2.16.840.1.326596.3.579.2.1 96 1959 Unknown [id number] 2.16.840.1.425017.3.579.2.1 96 1959 Unknown [id number] 2.16.840.1.669136.3.579.2.1 96 1959 Unknown [id number] 2.16.840.1.750251.3.579.2.1 96 1959 Unknown [id number] 2.16.840.1.866597.3.579.2.1 96 1959 Unknown [id number] 2.16.840.1.673983.3.579.2.1 96 1959 Unknown [id number] 2.16.840.1.839119.3.579.2.1 96 1959 Unknown [id number] 2.16.840.1.632176.3.579.2.7 27 Medicare Medicare [id number] Unknown [id number] 2.16.840.1.743456.3.579.2.5 93 Unknown [id number] Unknown [facility] Health P lans [facility] PF [id number] Social History Date Type Detail Facility Sex Assigned At [facility] Other Start: 1960 Sex Assigned At Female [facility] Work Phone: Start: 06-25-2024 Sex Female (finding) [facility] Clinical Notes 08-04-2022 to 06-01-2023 Note Date [...] and without status migrainosus (ICD-10 - G43.719) [facility] Other 01-15-2024 Evaluation note* Encounter Date Diagnosis Assessment Notes Treatment Notes Treatment Clinical Notes Apr, Intractable chronic migraine without aura and without status migrainosus (ICD-10 - G43.719) [facility] Other 01-08-2024 Evaluation note* Encounter Date Diagnosis Assessment Notes Treatment Notes Treatment Clinical Notes Apr, Intractable chronic migraine without aura and without status migrainosus (ICD-10 - G43.719) [facility] Other 01-05-2024 Evaluation note* Encounter Date Diagnosis [...] Begin Amitriptyline Stop Tizanidine. 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 May want to cut back on Zanaflex. [...] Pain in left shoulder (ICD-10 - M25.512) [facility] Other 06-30-2023 Evaluation note* Encounter Date Diagnosis Assessment Notes Treatment Notes Treatment Clinical Notes Sep, Type 2 diabetes mellitus with hyperglycemia, without long-term current use of insulin (ICD-10 - E11.65) [facility] Other 06-05-2023 Evaluation note* Encounter Date Diagnosis Assessment Notes Treatment Notes Treatment Clinical Notes Sep, Candidiasis, intertriginous (ICD-10 - B37.2) [facility] Other 04-12-2023 Evaluation note* Encounter Date Diagnosis [...] use, the patient reduces the risk for MO, CVA, HTN, cardiac dysrhythmias and sudden cardiac [...] Jul, Other specified hypothyroidism (ICD-10 - E03.8) [facility] Other Evaluation noteNo [employer] Other Evaluation noteNo assessment information available [facility] Work Phone: Evaluation note* Diagnosis Onset Date Resolution Status Cervical pain acute Cervical spondylosis acute Cervical pain acute Cervical spondylosis acute Painful lumpy right breast a roberta [facility] Work Phone: History general Narrative - [...] LEFT HEART CATHETERIZATION 2016 Hospitalization History SEE Infectious Other History general Narrative - Reported* Type [...] Right knee arthroscopy 10/2022 Hospitalization History SEE Infectious Other Reason for referral (narrative)* Reason Evaluation of right knee pain Diagnosis 1 Strain of right knee , subsequent encounter (S86.569E) Referral Organization [facility] Hamilton Odette C bhupinder Referring Provider First Name Robert Referring Provider Last Name Hamilton Referring Provider Specialty Internal Me yoni Referred Provider Rishi Parker Jr Referred Provider Specialty Orthopedic S urgery Referral Priority Routine [facility] Other Reason for referral (narrative)* Reason Referral for neck pa in Diagnosis 1 Cervicalgia (M54.2) Diagnosis 2 Cervical spondylosis (M47.812) Referral Organization [facility] bhupinder Referring Provider First Name Robert Referring Provider Last Name Hamilton Referring Provider Specialty Internal Me dicine Referred Organization [facility] Referred Address [address] [place], [place],[address] Referred Provider Specialty Pain Medicin e Referral Priority Routine General Notes Patient has hx of ce rvical discectomy and fusion and presented w/ persistent neck pain, which radiated upwards causing a headache. She is being referred for treatment with the pain clinic. Clinical Notes Include MRI [facility] Other Summary Purpose Family History Relationship Condition [...] section and content) DATE CREATED AUTHOR 06/20/2018 [facility] DATE CREATED AUTHOR AUTHOR'S ORGANIZ ATION 07/04/2018 [facility] DATE CREATED AUTHOR AUTHOR'S ORGANIZ ATION 09/18/2020 [facility] DATE CREATED AUTHOR AUTHOR'S ORGANIZ ATION 08/27/2022 [facility] DATE CREATED AUTHOR AUTHOR'S ORGANIZ ATION 04/18/2024 [facility] DATE CREATED AUTHOR AUTHOR'S ORGANIZ ATION 06/23/2024 [facility] REASON FOR VISIT (unrecogniz ed section and [...] BE BASED ON THE PRIMARY CLINICAL RECORDS. [facility] provides no warranty or guarantee of the accuracy or completeness of information in this document.
--- NOTE | 2024-07-02 11:26 | ED_ITS ---
HPI HPI - General Adult General Chief complaint: Extremity Injury, Lower Stated complaint: HIP AND LEG PAIN FALL Time Seen by Provider: 07/02/24 11:01 Source: patient Mode of arrival: Wheelchair History of Present Illness HPI narrative: 64-year-old female presents to the emergency department for weakness in her right leg and it keeps giving out. She was seen here few days ago and was put on hydrocodone and Neurontin. She states no images were taken. Her leg gave out 3 times again today but she did not injure herself. No symptoms in the left leg and she has never had this issue before. Related Data Home Medications ?Medication ?Instructions ?Recorded ?Confirmed atenolol 50 mg tablet 50 mg PO DAILY 09/28/22 07/02/24 citalopram 40 mg tablet (Celexa) 40 mg PO DAILY 09/28/22 07/02/24 glimepiride 4 mg tablet 4 mg PO DAILY 09/28/22 07/02/24 levothyroxine 125 mcg tablet 125 mcg PO DAILY 09/28/22 07/02/24 (Synthroid) metformin 500 mg tablet 500 mg PO BID 09/28/22 07/02/24 pravastatin 40 mg tablet 40 mg PO DAILY 09/28/22 07/02/24 tizanidine 4 mg tablet 4 mg PO .hs muscle spasticity 09/28/22 07/02/24 clonazepam 1 mg tablet (Klonopin) 1.5 mg PO DAILY 05/18/23 07/02/24 rizatriptan 10 mg tablet (Maxalt) 10 mg PO Q2H PRN migraine headache 05/18/23 07/02/24 olmesartan 20 mg tablet 20 mg PO DAILY 06/06/23 07/02/24 etodolac 500 mg tablet 500 mg PO BID 05/09/24 07/02/24 Previous Rx's ?Medication ?Instructions ?Recorded gabapentin 100 mg capsule 200 mg (2 x 100 mg) PO BID #60 caps 06/30/24 hydrocodone 5 mg-acetaminophen 325 1 tab PO Q6H PRN pain #20 tabs 06/30/24 mg tablet polyethylene glycol 3350 17 17 g PO DAILY PRN constipation 06/30/24 gram/dose oral powder (Miralax) #510 grams prednisone 10 mg tablet See Rx Instructions .Route 07/02/24 .COMPLEX #18 tabs Allergies Allergy/AdvReac Type Severity Reaction Status Date / Time calcium (From DHEA) Allergy Severe respirator Verified 07/02/24 11:07 arrest calcium carbonate (From DHEA) Allergy Severe respirator Verified 07/02/24 11:07 arrest prasterone (DHEA) (From DHEA) Allergy Severe respirator Verified 07/02/24 11:07 arrest iodine Allergy Intermediate Unknown Verified 07/02/24 11:07 latex Allergy Intermediate Unknown Verified 07/02/24 11:07 meperidine (From Demerol) Allergy Intermediate Unknown Verified 07/02/24 11:07 sumatriptan (From Imitrex) Allergy Intermediate Unknown Verified 07/02/24 11:07 Opioid HPI Opioid Management Most Recent Opioid Data: Last Pain Scale 10 06/30/24 15:03 06/30/24 Ur Phencyclidine Scrn Negative (NEGATIVE) 12/17/22 11:00 11/24 09/14 Review of Systems ROS Narrative A ten point review of systems is negative except as noted above. PFSH [facility] Medical History Shoulder pain, right ?M25.511 - Pain in right shoulder (ICD-10) Osteoarthritis ?M19.90 - Unspecified osteoarthritis, unspecified site (ICD-10) Low back pain ?M54.50 - Low back pain, unspecified (ICD-10) Neck pain ?M54.2 - Cervicalgia (ICD-10) TIA (transient ischemic attack) ?G45.9 - Transient cerebral ischemic attack, unspecified (ICD-10) Hearing deficit ?H91.90 - Unspecified hearing loss, unspecified ear (ICD-10) Acid reflux ?K21.9 - Gastro-esophageal reflux disease without esophagitis (ICD-10) Obesity ?E66.9 - Obesity, unspecified (ICD-10) Diabetes ?E11.9 - Type 2 diabetes mellitus without complications (ICD-10) Hypothyroid ?E03.9 - Hypothyroidism, unspecified (ICD-10) Sleep apnea ?G47.30 - Sleep apnea, unspecified (ICD-10) Irregular heart beat ?I49.9 - Cardiac arrhythmia, unspecified (ICD-10) High cholesterol ?E78.00 - Pure hypercholesterolemia, unspecified (ICD-10) Hypertension ?I10 - Essential (primary) hypertension (ICD-10) Surgical History H/O cosmetic surgery ?Z98.890 - Other specified postprocedural states (ICD-10) H/O thyroidectomy ?E89.0 - Postprocedural hypothyroidism (ICD-10) H/O lumbosacral spine surgery ?Z98.890 - Other specified postprocedural states (ICD-10) H/O operation on finger ?Z98.890 - Other specified postprocedural states (ICD-10) H/O carpal tunnel repair ?Z98.890 - Other specified postprocedural states (ICD-10) H/O arthroscopic knee surgery ?Z98.890 - Other specified postprocedural states (ICD-10) H/O: hysterectomy ?Z90.710 - Acquired absence of both cervix and uterus (ICD-10) Hx of appendectomy ?Z90.49 - Acquired absence of other specified parts of digestive tract (ICD- 10) H/O exploratory laparotomy ?Z98.890 - Other specified postprocedural states (ICD-10) H/O: ?Z98.891 - History of uterine scar from previous surgery (ICD-10) H/O shoulder surgery ?Z98.890 - Other specified postprocedural states (ICD-10) H/O cervical spine surgery ?Z98.890 - Other specified postprocedural states (ICD-10) S/P cataract extraction ?Z98.49 - Cataract extraction status, unspecified eye (ICD-10) Social History Little interest or pleasure in doing things: not at all Feeling down, depressed, or hopeless: not at all Exam Narrative Exam Narrative: Nurses note and vital signs reviewed and patient is not hypoxic. General: The patient appears well and in no apparent distress. Patient is resting comfortably on cart. Skin: Warm, dry, no pallor noted. There is no rash noted. Head: Normocephalic, atraumatic Eye: Normal conjunctiva, no drainage Ears, Nose, Mouth, and Throat: oral mucosa is moist. Nares patent. Cardiovascular: Regular Rate and Rhythm Respiratory: Patient is in no distress, no accessory muscle use, lungs are clear to auscultation, no wheezing, rales or rhonchi Back: non-tender, no bruise or rash to her back. GI: Soft and nontender Musculoskeletal: No swelling bruising or rash on her right leg. No calf tenderness. Neurological: A&O, normal speech Psychiatric: Cooperative Constitutional Vital Signs, click to edit/add: Last Vital Signs Temp 98.1 F 07/02/24 11:07 Pulse 62 07/02/24 11:07 Resp 20 07/02/24 11:07 BP 129/53 07/02/24 11:07 Pulse Ox 96 07/02/24 11:07 O2 Del Method Room Air 07/02/24 11:07 Course Vital Signs Vital signs: Vital Signs Temperature 98.1 F 07/02/24 11:07 Pulse Rate 62 07/02/24 11:07 Respiratory Rate 20 07/02/24 11:07 Blood Pressure 129/53 07/02/24 11:07 Pulse Oximetry 96 07/02/24 11:07 Oxygen Delivery Method Room Air 07/02/24 11:07 Temperature 98.1 F 07/02/24 11:07 Pulse Rate 62 07/02/24 11:07 Respiratory Rate 20 07/02/24 11:07 Blood Pressure 129/53 07/02/24 11:07 Pulse Oximetry 96 07/02/24 11:07 Oxygen Delivery Method Room Air 07/02/24 11:07 Medical Decision Making MDM Narrative Medical decision making narrative: L3-L4 disc herniation is noted on CAT scan of the lumbar spine. She is prescribed short low-dose course of steroids. She is diabetic and was instructed to monitor her blood sugars closely. She is being referred to Dr. Meehan after I spoke to Dr. Lamar. Treatment diagnosis and follow-up were discussed with the patient Differential Diagnosis Differential Diagnosis: Disc herniation, lumbar strain, compression fracture Imaging Data CT lumbar: Radiologist's impression: Findings suspicious for presence of right foraminal disc herniation of L3-L4 Discharge Plan Discharge Chief Complaint: Extremity Injury, Lower Clinical Impression: Herniated lumbar intervertebral disc Patient Disposition: Home, Self-Care Time of Disposition Decision: 12:48 Condition: Good Mode of Transportation: Private Vehicle Prescriptions / Home Meds: New prednisone 10 mg tablet See Rx Instructions .ROUTE .COMPLEX Qty: 18 0RF Rx Instructions: 3 by mouth daily for three days then 2 by mouth daily for three days then 1 by mouth daily for three days No Action rizatriptan [Maxalt] 10 mg tablet 10 mg PO Q2H PRN (Reason: migraine headache) Rx Instructions: do not exceed 3 doses per 24 hrs clonazepam [Klonopin] 1 mg tablet 1.5 mg PO DAILY olmesartan 20 mg tablet 20 mg PO DAILY hydrocodone-acetaminophen 5-325 mg tablet 1 tab PO Q6H PRN (Reason: pain) Qty: 20 0RF gabapentin 100 mg capsule 200 mg PO BID Qty: 60 0RF polyethylene glycol 3350 [Miralax] 17 gram/dose powder 17 g PO DAILY PRN (Reason: constipation) Qty: 510 0RF tizanidine 4 mg tablet 4 mg PO .hs Rx Instructions: prn bid atenolol 50 mg tablet 50 mg PO DAILY levothyroxine [Synthroid] 125 mcg tablet 125 mcg PO DAILY citalopram [Celexa] 40 mg tablet 40 mg PO DAILY pravastatin 40 mg tablet 40 mg PO DAILY metformin 500 mg tablet 500 mg PO BID glimepiride 4 mg tablet 4 mg PO DAILY etodolac 500 mg tablet 500 mg PO BID Print Language: Brazilian Instructions: Lumbar Disc Herniation (ED) Referrals: Robert Cruz DO [Primary Care Provider] - 1 week
[2024-07-02] MEDS: KETOROLAC TROMETHAMINE 60 MG/2 ML VIAL IM (11:53)
== END 2024-07-02 13:03 | disposition home or self-care (01) ==
PROVIDERS: Emergency Provider Emergency Medicine; PCP Internal Medicine
DX: M51.26 Other intervertebral disc displacement, lumbar region (principal); E11.9 Type 2 diabetes mellitus without complications; Z90.710 Acquired absence of both cervix and uterus; Z90.49 Acquired absence of other specified parts of digestive tract; Z79.84 Long term (current) use of oral hypoglycemic drugs
CPT/HCPCS: 72131; 73502; 96372; 99284; J1885

== ENCOUNTER 2024-07-06 10:57 | Emergency (ER) | payer OTHER, SELFPAY ==
[2024-07-06 11:09] VITALS: BP 172/65; PULSE 59; TEMP 36.8; O2SAT 96; BMI 32.9
[2024-07-06] MEDS: HYDROMORPHONE HCL 1 MG/ML CARTRIDGE IM (11:56)
[2024-07-06] MEDS: METHOCARBAMOL 500 MG TABLET PO (11:59)
--- NOTE | 2024-07-06 12:17 | ED_ITS ---
HPI HPI - General Adult General Chief complaint: Extremity Problem, Nontraumatic Stated complaint: SENT BY DR WHEATLEY Time Seen by Provider: 07/06/24 11:46 Source: patient Mode of arrival: Wheelchair Limitations: no limitations History of Present Illness HPI narrative: 1215 I went to see and evaluate the patient, she was already in MRI. I have preordered medication to help with her pain. Patient had told Akiko BYNUM that she received Dilaudid last ER visit and she would need something to help her stay still for the MRI lumbosacral spine. This was ordered. Patient's is at bedside. Patient stated that she was here for MRI of the lumbar sacral spine and also secondary to have a DVT study done to rule out blood clot. Updates were given to . I will evaluate patient when she returns back from MRI. Patient has been to the ER several times secondary to intractable right lower back pain with right lumbar radiculopathy and right piriformis syndrome. Patient has no signs or symptoms of saddle anesthesia or cauda equina. Patient is unable to tolerate pain at home. Patient is using [place] with no relief. Patient saw the orthopedic spine surgeon Dr. Booth in the office today and patient was sent to the ER to have MRI without contrast to rule out cauda equina. Patient also was to have a ultrasound of the right lower extremity to rule out DVT secondary to the pain to the right posterior thigh. Patient has no abdominal pain nausea or vomiting. No chest pain or shortness of breath. Patient did have lab work approximately 1 week ago. Patient's also had a CAT scan of her lower back in the last several weeks as well. Patient is having intractable pain. No fever. All systems are negative except as noted/marked. All systems reviewed and otherwise negative. Nurses note and vital signs reviewed and patient is not hypoxic. General: The patient appears well and in no apparent distress. Patient is resting comfortably on cart. Patient is not toxic, lethargic, or listless and performing patient's HPI and physical exam, patient will. Intermittently have a zap with is present with pain as well into the right lower extremity, and she will have a jerking motion to the right lower extremity. Questionable whether this is voluntary or involuntary. Skin: Warm, dry, no pallor noted. There is no rash noted. No petechiae, purpura. Head: Normocephalic, atraumatic Eye: Normal conjunctiva, no drainage, EOMI. PERRL Ears, Nose, Mouth, and Throat: oral mucosa is moist. Nares patent. Mouth without vesicles. Cardiovascular: Regular Rate and Rhythm, no murmur, gallop, rub Respiratory: Patient is in no distress, no accessory muscle use, lungs are clear to auscultation, no wheezing, rales or rhonchi Back: Mild right paralumbar tenderness to palpation, mild midline lumbar tenderness to palpation, L3-L5, patient has moderate to severe right piriformis tenderness to palpation. Positive straight leg raising test on the right, negative on the left. Non-tender, no CVA tenderness bilaterally to percussion. No CT LS midline pain GI: no tenderness to palpation, no masses appreciated. No rebound, guarding, or rigidity noted. No distention. No pulsatile mass. Musculoskeletal: Patient has full range of motion of all of the extremities, no motor, sensory, or focal neurological deficits. No saddle anesthesia or cauda equina. Neurological: A&O x4, normal speech Psychiatric: Cooperative Related Data Home Medications ?Medication ?Instructions ?Recorded ?Confirmed atenolol 50 mg tablet 50 mg PO DAILY 09/28/22 07/02/24 citalopram 40 mg tablet (Celexa) 40 mg PO DAILY 09/28/22 07/02/24 glimepiride 4 mg tablet 4 mg PO DAILY 09/28/22 07/02/24 levothyroxine 125 mcg tablet 125 mcg PO DAILY 09/28/22 07/02/24 (Synthroid) metformin 500 mg tablet 500 mg PO BID 09/28/22 07/02/24 pravastatin 40 mg tablet 40 mg PO DAILY 09/28/22 07/02/24 tizanidine 4 mg tablet 4 mg PO .hs muscle spasticity 09/28/22 07/02/24 clonazepam 1 mg tablet (Klonopin) 1.5 mg PO DAILY 05/18/23 07/02/24 rizatriptan 10 mg tablet (Maxalt) 10 mg PO Q2H PRN migraine headache 05/18/23 07/02/24 olmesartan 20 mg tablet 20 mg PO DAILY 06/06/23 07/02/24 etodolac 500 mg tablet 500 mg PO BID 05/09/24 07/02/24 Previous Rx's ?Medication ?Instructions ?Recorded gabapentin 100 mg capsule 200 mg (2 x 100 mg) PO BID #60 caps 06/30/24 hydrocodone 5 mg-acetaminophen 325 1 tab PO Q6H PRN pain #20 tabs 06/30/24 mg tablet polyethylene glycol 3350 17 17 g PO DAILY PRN constipation 06/30/24 gram/dose oral powder (Miralax) #510 grams prednisone 10 mg tablet See Rx Instructions .Route 07/02/24 .COMPLEX #18 tabs Allergies Allergy/AdvReac Type Severity Reaction Status Date / Time calcium (From DHEA) Allergy Severe respirator Verified 07/06/24 11:09 arrest calcium carbonate (From DHEA) Allergy Severe respirator Verified 07/06/24 11:09 arrest prasterone (DHEA) (From DHEA) Allergy Severe respirator Verified 07/06/24 11:09 arrest iodine Allergy Intermediate Unknown Verified 07/06/24 11:09 latex Allergy Intermediate Unknown Verified 07/06/24 11:09 meperidine (From Demerol) Allergy Intermediate Unknown Verified 07/06/24 11:09 sumatriptan (From Imitrex) Allergy Intermediate Unknown Verified 07/06/24 11:09 Opioid HPI Opioid Management Most Recent Opioid Data: Last Pain Scale 7 07/06/24 14:21 07/06/24 Last MAR Pain Assessment 07/06/24 14:21 Ur Phencyclidine Scrn Negative (NEGATIVE) 12/17/22 11:00 11/24 09/14 [facility] Medical History Shoulder pain, right ?M25.511 - Pain in right shoulder (ICD-10) Osteoarthritis ?M19.90 - Unspecified osteoarthritis, unspecified site (ICD-10) Low back pain ?M54.50 - Low back pain, unspecified (ICD-10) Neck pain ?M54.2 - Cervicalgia (ICD-10) TIA (transient ischemic attack) ?G45.9 - Transient cerebral ischemic attack, unspecified (ICD-10) Hearing deficit ?H91.90 - Unspecified hearing loss, unspecified ear (ICD-10) Acid reflux ?K21.9 - Gastro-esophageal reflux disease without esophagitis (ICD-10) Obesity ?E66.9 - Obesity, unspecified (ICD-10) Diabetes ?E11.9 - Type 2 diabetes mellitus without complications (ICD-10) Hypothyroid ?E03.9 - Hypothyroidism, unspecified (ICD-10) Sleep apnea ?G47.30 - Sleep apnea, unspecified (ICD-10) Irregular heart beat ?I49.9 - Cardiac arrhythmia, unspecified (ICD-10) High cholesterol ?E78.00 - Pure hypercholesterolemia, unspecified (ICD-10) Hypertension ?I10 - Essential (primary) hypertension (ICD-10) Surgical History H/O cosmetic surgery ?Z98.890 - Other specified postprocedural states (ICD-10) H/O thyroidectomy ?E89.0 - Postprocedural hypothyroidism (ICD-10) H/O lumbosacral spine surgery ?Z98.890 - Other specified postprocedural states (ICD-10) H/O operation on finger ?Z98.890 - Other specified postprocedural states (ICD-10) H/O carpal tunnel repair ?Z98.890 - Other specified postprocedural states (ICD-10) H/O arthroscopic knee surgery ?Z98.890 - Other specified postprocedural states (ICD-10) H/O: hysterectomy ?Z90.710 - Acquired absence of both cervix and uterus (ICD-10) Hx of appendectomy ?Z90.49 - Acquired absence of other specified parts of digestive tract (ICD- 10) H/O exploratory laparotomy ?Z98.890 - Other specified postprocedural states (ICD-10) H/O: ?Z98.891 - History of uterine scar from previous surgery (ICD-10) H/O shoulder surgery ?Z98.890 - Other specified postprocedural states (ICD-10) H/O cervical spine surgery ?Z98.890 - Other specified postprocedural states (ICD-10) S/P cataract extraction ?Z98.49 - Cataract extraction status, unspecified eye (ICD-10) Social History Little interest or pleasure in doing things: not at all Feeling down, depressed, or hopeless: not at all Exam Constitutional Vital Signs, click to edit/add: Last Vital Signs Temp 98.2 F 07/06/24 11:09 Pulse 59 L 07/06/24 11:09 Resp 14 07/06/24 11:09 BP 172/65 H 07/06/24 11:09 Pulse Ox 96 07/06/24 11:09 O2 Del Method Room Air 07/06/24 11:09 Course Vital Signs Vital signs: Vital Signs Temperature 98.2 F 07/06/24 11:09 Pulse Rate 59 L 07/06/24 11:09 Respiratory Rate 14 07/06/24 11:09 Blood Pressure 172/65 H 07/06/24 11:09 Pulse Oximetry 96 07/06/24 11:09 Oxygen Delivery Method Room Air 07/06/24 11:09 Temperature 98.2 F 07/06/24 11:09 Pulse Rate 59 L 07/06/24 11:09 Respiratory Rate 14 07/06/24 11:09 Blood Pressure 172/65 H 07/06/24 11:09 Pulse Oximetry 96 07/06/24 11:09 Oxygen Delivery Method Room Air 07/06/24 11:09 Medical Decision Making MDM Narrative Medical decision making narrative: 929 I have spoken to the neurosurgeon, Dr. Booth. He is sending patient to the ER from his office to have MRI of the lumbar sacral spine to rule out cauda equina and also had DVT study secondary to right leg pain Patient arrived by private car to the ER. We were able to perform MRI of the lumbar sacral spine along with DVT study. MRI of the lumbosacral spine shows a large disc herniation with migrated fragment of sequestrum at the level of L3-L4. There is impacting thecal sac and the exiting right nerve. I have called to Dr. Saint Zambrano, he is aware the MRI finding. He stated patient could follow-up on Tuesday in the office as an outpatient or be transferred to [facility] for surgery this weekend. He wanted me to speak to the patient to see which she would like to do. Patient states that she cannot handle the intractable pain any longer, patient would like to be transferred. is at bedside and he agrees. Dr. Saint Zambrano is aware that patient would like to be transferred to [facility] in [place]. Patient is to be admitted to the hospitalist, Dr. SILVA. We have called the transfer line to make arrangements for transfer. 1515 I have spoken to Dr. SILVA, and patient is admitted to medical service of Dr. SILVA. Dr SILVA has spoken to Dr. Saint Zambrano and is aware of the admission as well. They have spoken about patient's care 1600 they are currently cleaning patient's room. Nursing supervisor type disk quality control stated that patient does have a room, they cannot give the room number until the room is clean. Patient will be transferred to [facility]. Patient will be traveling by private car. Patient is approximately 1.5 to 2 hours away. Patient will be transferred now, will be driving. Patient was thankful for help and care, will be driving patient. She has no IV. Critical care time 40 minutes exclusive from separate billable procedures that were performed. The following was considered in the determination of critical care but not limited to the level of medical decision making, intensive cardiac and/or respiratory monitoring, frequent vital sign monitoring, evaluation of laboratory studies, evaluation of radiographic studies, oxygen monitoring, and constant monitoring and speaking to family at bedside Discharge Plan Discharge Chief Complaint: Extremity Problem, Nontraumatic Clinical Impression: Right lumbosacral radiculopathy, Piriformis syndrome of right side, Right sided sciatica, Intractable back pain Patient Disposition: [facility] Time of Disposition Decision: 14:21 Discharge location: [facility], Dr. SILVA, [facility] hospitalist and Dr. Booth neurosurgeon Condition: Fair
--- OUTSIDE RECORDS SUMMARY | 2024-07-06 13:54 | XMS_ITS | CCD ---
Author Organization [facility] CliniSyin Care Team Providers Care Can Slider Name Role Phone REECE LENTZIC New Admitting [...] adverse reactions to drug (disorder) 09-30-19 11 [facility] Repository (2 sources) HYDROmorphone; Translations: [HYDROMORPHONE (BULK)] Drug Allergy 08-17-19 17 [facility] Repository (20 sources) Latex; Translations: [LATEX] Propensity to adverse reactions to drug (disorder) 09-30-19 11 Unknown, Unknown Reaction [facility] Repository (2 sources) Meperidine; Translations: [MEPERIDINE (PF)] Drug Allergy 09-30-19 11 [facility] Repository (2 sources) Povidone-Iodine; Translations: [POVIDONE-IODINE] Drug Allergy 10-21-19 17 [facility] Repository (2 sources) SUMAtriptan; Translations: [SUMATRIPTAN SUCCINATE] Drug Allergy 09-30-19 11 [facility] Repository (2 sources) INFLUENZA VACCINE TRI-SP 09-10; Translations: [INFLUENZA VACCINE TRI-SP 09-10] Propensity to adverse reactions to drug (disorder) 09-30-19 11 [facility] Repository (3 sources) DHE; Translations: [DHE] Propensity to adverse reactions to drug (disorder) 10-24-19 13 [facility] Repository (20 sources) HYDROmorphone Drug Allergy 12-20-19 24 Unknown, Unknown Reaction [facility] (20 sources) Iodine; Translations: [iodine] Drug Allergy 10-24-19 13 Unknown, Unknown Reaction [facility] Repository (20 sources) Meperidine Drug Allergy 12-20-19 24 Unknown, Unknown Reaction [facility] (20 sources) SUMAtriptan Drug Allergy 12-20-19 24 Unknown, Unknown Reaction [facility] (20 sources) Fluad Drug allergy 12-20-19 24 Unknown, Unknown Reaction [facility] (17 sources) DHEA Drug allergy Unknown [employer] Other (2 sources) HYDROmorphone; Translations: [Dilaudid] Drug Allergy 10-24-19 13 [facility] Repository (1 source) Meperidine Drug Allergy 10-24-19 13 [facility] Repository (2 sources) Plasmin; Translations: [Imitrex] Drug Allergy 10-24-19 13 [facility] Repository (12 sources) influenza A virus (H1N1) antigen / influenza A virus (H3N2) antigen / influenza B virus antigen Drug Allergy 11-21-19 14 Comment:FLU VACCINE [facility] [employer] Other (12 sources) Contraindication to Flu Injection Propensity to adverse reactions 03-07-20 14 Comment:advers e rxn/side effects [employer] Other (3 sources) patient allergy list reviewed by nurse or physicia Propensity to adverse reactions 12-22-19 Comment:Done [employer] Other (4 sources) Calcium Drug Allergy 12-20-[address] [facility] (4 sources) Calcium Carbonate Drug Allergy 12-20-[address] [facility] (4 sources) prasterone (DHEA) Allergy to substance 12-20-[address] [facility] (4 sources) Fluad Quadrivalent Allergy to substance 04-29-19 Comment:FLU VACCINE [facility] Comment on above: Onset Date: 11/21/19 14 (1 source) Meperidine; Translations: [Demerol HCl] Drug Allergy [facility] Repository (1 source) flu vaccines; Translations: [flu vaccines] Propensity to adverse reactions (disorder) [facility] Repository Medications Current Medications Medication Drug Class(es) Dates Sig (Normalized) Sig (Original) acetaminophen 325 mg / HYDROcodone bitartrate 5 mg oral tablet (1 source) Opioid Agonist Start: 07-04-2024 take 1 tablet by mouth every four to six hours as needed for pain Hydrocodone-Aceta minophen 5-325 mg tablet Active 1 TAB PO EVERY 4-6 HOURS as needed for pain 28 July 04, 2024 atenolol 50 mg oral tablet (20 sources) beta-Adrenergic Maria Esther Start: 03-28-2024 take 1 tablet by mouth once daily Atenolol 50 mg tablet Active 0 .ROUTE .COMPLEX 90 March 28, 2024 8:00am TAKE 1 TABLET BY MOUTH ONCE DAILY Start: 12-20-2023 End: 03-28-2024 take 1 tablet by mouth once daily Atenolol 50 mg tablet Discontinued 50 MG PO Daily December 20, 2023 12:00am March 28, 2024 8:00am Start: 08-04-2022 take 1 tablet by fredrick th every twenty-four hours Atenolol 50 MG 1 tablet Orally Once a day for 90 days Jul, Active citalopram 40 mg oral tablet (20 sources) Serotonin Reuptake Inhibitor Start: 10-18-2023 End: 10-18-2023 take 1 tablet by mouth once daily Citalopram 40 mg tablet Active 40 MG PO Daily 90 October 18, 2023 8:37am Start: 10-22-2022 [...] 2023 1:03pm Start: 06-13-2023 End: 12-20-2023 take 3 tablets by mouth once daily 30 minutes before bedtime Clonazepam 0.5 mg tablet Discontinued 1.5 MG PO Daily at bedtime 270 June 13, 2023 1:00am December 20, 2023 4:16pm administer 30 minutes before bedtime Start: 06-13-2023 [...] Active 0 .ROUTE .COMPLEX March 28, 2024 8:00am TAKE 1 TABLET BY MOUTH DAILY WITH BREAKFAST OR FIRST MAIN MEAL OF THE DAY Start: 12-20-2023 End: 03-28-2024 Glimepiride 4 mg tablet Disc ontinued 1 TAB PO Daily December 20, 2023 12:00am March 28, 2024 8:00am FreeTextSi tablet with breakfast or the first [...] Active 0 .ROUTE .COMPLEX March 28, 2024 8:00am TAKE 1 TABLET BY MOUTH ONCE DAILY IN THE MORNING ON AN EMPTY STOMACH Start: 12-20-2023 End: 03-28-2024 take 1 capsule by mouth once daily Levothyroxine 125 mcg capsule Discontinued 125 MCG PO Daily December 20, 2023 12:00am March 28, 2024 8:00am Start: 07-26-2022 take 1 tablet by fredrick [...] 12:00am Magnesium Aspart,Citrate,Oxide 400 mg magnesium capsule (2 sources) Start: 12-20-2023 take 1 capsule by mouth once daily Magnesium Aspart,Citrate,Oxide 400 mg magnesium capsule Active 400 MG PO Daily December 20, 2023 12:00am Start: 12-20-2023 take 1 capsule by mo [facility] once daily Magnesium Aspart,Citrate,Oxide 400 mg magnesium capsule Active 400 MG PO Daily December 19, 2023 11:00pm metFORMIN hydrochloride 500 mg oral tablet (20 sources) Biguanide Start: 03-28-2024 take 1 tablet by mouth twice daily Metformin 500 mg tablet Active 0 .ROUTE .COMPLEX 180 March 28, 2024 8:00am TAKE 1 TABLET BY MOUTH WITH A MEAL TWICE DAILY Start: 12-20-2023 End: 03-28-2024 take 1 tablet by mouth twice daily Metformin 500 mg tablet Discontinued MG PO December 20, 2023 12:00am March 28, 2024 8:00am FreeTextSi tablet with a meal Orally two times daily; Note: Source Status: Taking; Refills: 3; Provider: Hamilton Jones Start: 10-13-2022 [facility] metFORMIN HCl 500 MG 1 tablet with a meal Orally two times daily for 90 days Sep, Active olmesartan medoxomil 20 mg oral tablet (18 sources) Angiotensin 2 Receptor Maria Esther Start: 03-28-2024 take 1 tablet by mouth once daily Olmesartan 20 mg tablet Active 0 .ROUTE .COMPLEX 90 March 28, 2024 9:29pm TAKE 1 TABLET BY MOUTH ONCE DAILY Start: 03-28-2024 End: 03-28-2024 take 1 tablet by mouth once daily Olmesartan 20 mg tablet Discontinued 20 MG PO Daily March 28, 2024 1:00am March 28, 2024 9:29pm Start: 12-20-2023 End: 12-20-2023 take 1 tablet by mouth once daily Olmesartan 20 mg tablet Discontinued 20 MG PO Daily December 20, [...] 20 mg tablet Active 0 .ROUTE .COMPLEX March 28, 2024 8:01am TAKE 1 TABLET BY MOUTH ONCE DAILY Start: 12-20-2023 End: 03-28-2024 take 1 tablet by mouth once daily Pravastatin 40 mg tablet Discontinued 40 MG PO Daily December 20, 2023 12:00am March 28, 2024 8:02am Start: 08-04-2022 take 1 tablet by fredrick [...] Apr, Active rizatriptan 10 mg oral tablet (11 sources) Serotonin-1b and Serotonin-1d Receptor Agonist Start: 12-20-2023 take 3 tablets by mouth every twenty-four hours as needed Rizatriptan (Maxalt) 10 mg tablet Active 10 MG PO EVERY 2-4 HOURS as needed December 20, 2023 12:00am do not exceed 3 doses per 24 hrs Start: 11-04-2022 take 1 tablet by ferdrick th every two hours as needed for headache 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 10 MG 1 tablet Orally PRN [...] 0 .ROUTE .COMPLEX 180 June 15, 2024 9:55am TAKE 1 TABLET BY MOUTH TWICE A DAY FOR MUSCLE SPASTICITY Start: 02-29-2024 End: 06-15-2024 take 1 capsule by mouth twice daily Tizanidine 4 mg capsule Discontinued 4 MG PO Twice daily 180 90 February 29, 2024 5:11pm June 15, 2024 9:55am Start: 12-16-2023 End: 02-29-2024 take 0.5-1 tablets by mouth once daily at bedtime Tizanidine 4 mg capsule Discontinued 4 MG PO Daily at bedtime as needed for muscle spasticity 90 December 16, 2023 12:52pm February 29, 2024 5:11pm take 1/2 to 1 tablet at QHS Start: 06-17-2023 End: 12-16-2023 take 0.5 tablet by mouth once daily at bedtime Tizanidine 4 mg capsule Discontinued 4 MG PO Daily at bedtime as needed for muscle spasticity June 17, 2023 1:40pm December 16, 2023 1:19pm take 1/2 tablet at QHS take 0.5-1 tablets b y mouth once daily at bedtime tiZANidine HCl 4 MG TAKE 1/2 TO 1 TABLET BY MOUTH EVERY DAY AT BEDTIME for 90 Active Completed/Discontinued Medications Medication Drug Class(es) Dates Sig (Normalized) Sig (Original) amitriptyline hydrochloride 10 mg oral tablet (11 sources) Tricyclic Antidepressant Start: 12-20-2023 End: 12-20-2023 [...] Jul, Not-Taking/PRN etodolac 500 mg oral tablet (12 sources) Nonsteroidal Anti-inflammatory Drug Start: 12-20-2023 End: 04-06-2024 take 1 tablet by mouth twice daily as needed for headache Etodolac 500 mg tablet Discontinued 500 MG PO Twice daily as needed for headache 60 30 January 09, 2024 1:30pm April 06, 2024 11:06am naratriptan 2.5 mg oral tablet (11 sources) Serotonin-1b and Serotonin-1d Receptor Agonist Start: 12-20-2023 End: 12-20-2023 take 1 tablet by mouth every four hours as needed for headache Naratriptan 2.5 mg tablet Discontinued 2.5 MG PO Every 4 hours as needed for migraine headache December 20, 2023 12:00am December 20, 2023 [...] count, unspecified] Chronic Disorders of lipid metabolism (20 sources) Hypercholesterolemia; Translations: [Pure hypercholesterolemia, unspecified] Chronic [...] Onset: 9 Chronic Other connective tissue disease (2 sources) History of cervical spine fusion; Translations: [Arthrodesis status] 02-24-2024 Episodic Other connective tissue disease (1 source) Arthrodesis status; Translations: [Arthrodesis status] 06-25-2024 Episodic Other nervous system disorders (1 source) [...] to excess calories] Chronic Residual codes; unclassified (18 sources) Obstructive sleep apnea syndrome; Translations: [Obstructive sleep apnea (adult) (pediatric)] 07-01-2024 Chronic Residual codes; unclassified (2 sources) Obstructive sleep apnea (adult) (pediatric); Translations: [Obstructive sleep apnea (adult)(pediatric)] Chronic Spondylosis; intervertebral disc disorders; other back problems (20 sources) Lumbosacral spondylosis with radiculopathy; Translations: [Other spondylosis with radiculopathy, lumbosacral region] Chronic Spondylosis; intervertebral disc disorders; other back problems (8 sources) Cervicalgia; Translations: [Neck pain] Episodic Sprains [...] Test Name Value Interpretation Reference Range Facility Estimated glomerular filtrat ion rate (GFR) non- Americanon 06-27-2024 GFR/1.73 sq M.predicted among non-blacks MDRD (S/P/Bld) [Vol rate/Area] Estimated glomerular filtration rate (GFR) non- Low >=60 mL/min/1.73m [address] [facility] - Chemistry and C hemistry - challengeon 06-27-2024 Calcium [Mass/Vol] 9.8 mg/dL 8.5-10.1 [facility] Chloride [Moles/Vol] 101 mmol/L 98-107 [facility] CO2 [Moles/Vol] 28.6 mmol/L 21.0-32.0 [facility] Creatinine [Mass/Vol] 1.41 mg/dL High 0.55-1.02 [facility] GFR/1.73 sq M.predicted MDRD (S/P/Bld) [Vol rate/Area] 45 mL/min/{1.73_m2} Low >=60 mL/min/1.73m [address] [facility] Glucose [Mass/Vol] 66 mg/dL Low 74-106 [facility] Potassium [Moles/Vol] 5.1 mmol/L 3.5-5.1 [facility] Sodium [Moles/Vol] 139 mmol/L 136-145 [facility] Urea nitrogen [Mass/Vol] 29.0 mg/dL High 7.0-18.[address] [facility] Urea nitrogen/Creatinine [Mass ratio] 20.6 mg/mg [facility] Bilirubin Ql (U) LARGE Abnormal NEGATIVE [facility] Glucose (U) [Mass/Vol] Negative NEGATIVE [facility] Ketones Ql (U) TRACE mg/dL Abnormal NEGATIVE [facility] pH (U) 5.5 [pH] 5.0-9.[address] [facility] Specific gravity (U) [Rel density] 1.025 1.005-1.[address] [facility] Urobilinogen Qn (U) 0.2 {Nela'U}/dL 0.2-1.[address] [facility] - Specimen inform ationon 06-27-2024 Appearance (U) CLEAR CLEAR [facility] Color (U) YELLOW YELLOW [facility] - Urinalysison Leukocyte esterase Test strip Ql (U) Negative NEGATIVE [facility] Nitrite Ql (U) Negative NEGATIVE [facility] Protein Ql (U) Negative NEG/TRACE [facility] No Panel Informationon 06-27 Urine Microscopic Review NO [facility] Urine Occult Blood Negative NEGATIVE [facility] Serum or plasma anion gap de terminationon 06-27-2024 Anion gap [Moles/Vol] Serum or plasma an ion gap determination [facility] No Panel Informationon 06-01 Miscellaneous Test COMMENT . [facility] Comment on above: Test Ordered: [id number] Aerobic Cult, Extended IncubAerobic Cult, Extended Incub [...] RPenicillin RRifampin STetracycline STrimethoprim/Sulfa SVancomycin SPerformed at: [facility] [id number] Director: Noam Haskins PhD, Phone: [phone] Basophils Auto (Bld) [#/Vol] on 05-31-2024 Basophils (Bld) [#/Vol] Automated basophil count 0.0-0.1 [facility] Basophils/100 WBC Auto (Bld) on 05-31-2024 Basophils/100 WBC (Bld) Automated basophil % 0.2-2.[address] [facility] Eosinophils/100 WBC Auto (Bl d)on 05-31-2024 Eosinophils/100 WBC (Bld) Automated eosinophil % 0.9-7.[address] [facility] Erythrocyte distribution wid th Auto (RBC) [Ratio]on 05-31-2024 Erythrocyte distribution width (RBC) [Ratio] Erythrocyte distribution width [Ratio] by Automated count 11.0-15.[address] [facility] Hematocrit Auto (Bld) [Volum e fraction]on 05-31-2024 Hematocrit (Bld) [Volume fraction] Hematocrit [Volume Fraction] of Blood by Automated count 36.0-48.[address] [facility] Hemoglobin [Mass/volume] in Bloodon 05-31-2024 Hemoglobin (Bld) [Mass/Vol] Hemoglobin [Mass/volume] in Blood 12.0-16.[address] [facility] - Hematology and Cell countson 05-31-2024 ESR (Bld) [Velocity] 7 mm/h <=30 [facility] Immature granulocytes/100 WBC (Bld) 0.2 % 0.0-0.[address] [facility] Leukocytes [#/volume] correc chip for nucleated erythrocytes in Blood by Automated counon 05-31-2024 WBC corrected for nucl RBC Auto (Bld) [#/Vol] Leukocytes [#/volume] corrected for nucleated erythrocytes in Blood by Automated coun 4.0-11.[address] [facility] Lymphocytes Auto (Bld) [#/Vo l]on 05-31-2024 Lymphocytes (Bld) [#/Vol] Lymphocytes [#/volume] in Blood by Automated count 1.2-3.[address] [facility] Lymphocytes/100 WBC Auto (Bl d)on 05-31-2024 Lymphocytes/100 WBC (Bld) Lymphocytes/100 leukocytes in Blood by Automated count 20.5-60.[address] [facility] MCH Auto (RBC) [Entitic mass ]on 05-31-2024 MCH (RBC) [Entitic mass] MCH [Entitic mass] by Automated count 26.7-34.[address] [facility] MCHC Auto (RBC) [Mass/Vol]on 05-31-2024 MCHC (RBC) [Mass/Vol] MCHC [Mass/volume] by Automated count 29.9-35.[address] [facility] MCV Auto (RBC) [Entitic vol] on 05-31-2024 MCV (RBC) [Entitic vol] MCV [Entitic volume] by Automated count 81.0-99.[address] [facility] Monocytes Auto (Bld) [#/Vol] on 05-31-2024 Monocytes (Bld) [#/Vol] Automated blood monocyte count 0.3-0.[address] [facility] Monocytes/100 WBC Auto (Bld) on 05-31-2024 Monocytes/100 WBC (Bld) Automated monocyte % 1.7-12.[address] [facility] Neutrophils Auto (Bld) [#/Vo l]on 05-31-2024 Neutrophils (Bld) [#/Vol] Neutrophils [#/volume] in Blood by Automated count 1.4-6.[address] [facility] Neutrophils/100 WBC Auto (Bl d)on 05-31-2024 Neutrophils/100 WBC (Bld) Automated neutrophil % 43.0-75.[address] [facility] No Panel Informationon 05-31 C-Reactive Protein, Quantitative <0.50 mg/dL <=0.[address] [facility] Eosinophils # (Auto) 0.1 10 3/uL 0.0-0.7 [facility] Immature Granulocyte # (Auto) 0.01 10 3/uL 0.00-0.[address] [facility] Platelet mean volume Auto (B ld) [Entitic vol]on 05-31-2024 Platelet mean volume (Bld) [Entitic vol] Platelet mean volume [Entitic volume] in Blood by Automated count Low 9.5-13.[address] [facility] Platelets Auto (Bld) [#/Vol] on 05-31-2024 Platelets (Bld) [#/Vol] Platelets [#/volume] in Blood by Automated count 150-[address] [facility] RBC Auto (Bld) [#/Vol]on RBC (Bld) [#/Vol] Erythrocytes [#/volu me] in Blood by Automated count 4.20-5.[address] [facility] Basophils Auto (Bld) [#/Vol] on 12-27-2023 Basophils (Bld) [#/Vol] 0.1 10 3/uL 0.0-0.[address] [facility] Basophils/100 WBC Auto (Bld) on 12-27-2023 Basophils/100 WBC (Bld) 1.0 % 0.2-2.[address] [facility] Cholesterol in LDL Calc [Mas s/Vol]on 12-27-2023 Cholesterol in LDL [Mass/Vol] 63.0 mg/dL [facility] Comment on above: <100 mg/dl [id number] 0-129 mg/dl NEAR OR ABOVE [id number] mg/dl BORDERLINE [id number] mg/dl HIGH>190 mg/dl VERY HIGH Cholesterol in VLDL Calc [Ma ss/Vol]on 12-27-2023 Cholesterol in VLDL [Mass/Vol] 45.8 mg/dL [facility] Eosinophils/100 WBC Auto (Bl d)on 12-27-2023 Eosinophils/100 WBC (Bld) 8.3 % High 0.9-7.[address] [facility] Erythrocyte distribution wid th Auto (RBC) [Ratio]on 12-27-2023 Erythrocyte distribution width (RBC) [Ratio] 11.9 % 11.0-15.[address] [facility] Estimated glomerular filtrat ion rate (GFR) non- Americanon 12-27-2023 GFR/1.73 sq M.predicted among non-blacks MDRD (S/P/Bld) [Vol rate/Area] 47 mL/min/{1.73_m2} Low >=[address] [facility] Globulin Calc (S) [Mass/Vol] on 12-27-2023 Globulin (S) [Mass/Vol] 3.2 g/dL [facility] Glucose mean value [Mass/vol ume] in Blood Estimated from glycated hemoglobinon 12-27-2023 Average glucose Estimated from glycated hemoglobin (Bld) [Mass/Vol] 143 mg/dL [facility] Hematocrit Auto (Bld) [Volum e fraction]on 12-27-2023 Hematocrit (Bld) [Volume fraction] 39.7 % 36.0-48.[address] [facility] Hemoglobin [Mass/volume] in Bloodon 12-27-2023 Hemoglobin (Bld) [Mass/Vol] 12.9 g/dL 12.0-16.[address] [facility] Laboratory - Chemistry and C hemistry - challengeon 12-27-2023 Albumin [Mass/Vol] 3.7 g/dL 3.4-5.0 [facility] ALP [Catalytic activity/Vol] 61 U/L 46-[address] [facility] ALT [Catalytic activity/Vol] 36 U/L 14-[address] [facility] AST [Catalytic activity/Vol] 24 U/L 15-[address] [facility] Bilirubin [Mass/Vol] 0.6 mg/dL 0.2-1.0 [facility] Calcium [Mass/Vol] 9.2 mg/dL 8.5-10.1 [facility] Chloride [Moles/Vol] 101 mmol/L 98-107 [facility] Cholesterol [Mass/Vol] 146 mg/dL <=[address] [facility] Cholesterol in HDL [Mass/Vol] 38 mg/dL Low 40-[address] [facility] Comment on above: > or =60 mg/dl - LOW CARDIOVASCULAR RISK<40 mg/dl - HIGH CARDIOVASCULAR RISK CO2 [Moles/Vol] 26.8 mmol/L 21.0-32.0 [facility] Creatinine [Mass/Vol] 1.17 mg/dL High 0.55-1.02 [facility] GFR/1.73 sq M.predicted MDRD (S/P/Bld) [Vol rate/Area] 56 mL/min/{1.73_m2} Low >=[address] [facility] Glucose [Mass/Vol] 138 mg/dL High 74-106 [facility] Potassium [Moles/Vol] 4.5 mmol/L 3.5-5.1 [facility] Protein [Mass/Vol] 6.9 g/dL 6.4-8.2 [facility] Sodium [Moles/Vol] 138 mmol/L 136-145 [facility] Triglyceride [Mass/Vol] 229 mg/dL High <=[address] [facility] TSH Qn 0.834 m[IU]/L 0.358-3.[address] [facility] Urea nitrogen [Mass/Vol] 23.0 mg/dL High 7.0-18.[address] [facility] Urea nitrogen/Creatinine [Mass ratio] 19.7 mg/mg [facility] Laboratory - Hematology and Cell countson 12-27-2023 HbA1c (Bld) [Mass fraction] 6.6 % High 4.5-6.[address] [facility] Comment on above: ADA RECOMMENDED LIMI T 4.0 - 6.0ADA THERAPEUTIC TARGET < 7.0ACTION SUGGESTED> 7.0 Immature granulocytes/100 WBC (Bld) 0.4 % 0.0-0.[address] [facility] Leukocytes [#/volume] correc chip for nucleated erythrocytes in Blood by Automated counon 12-27-2023 WBC corrected for nucl RBC Auto (Bld) [#/Vol] 5.2 10 3/uL 4.0-11.[address] [facility] Lymphocytes Auto (Bld) [#/Vo l]on 12-27-2023 Lymphocytes (Bld) [#/Vol] 2.2 10 3/uL 1.2-3.8 [facility] Lymphocytes/100 WBC Auto (Bl d)on 12-27-2023 Lymphocytes/100 WBC (Bld) 42.1 % 20.5-60.[address] [facility] MCH Auto (RBC) [Entitic mass ]on 12-27-2023 MCH (RBC) [Entitic mass] 28.5 pg 26.7-34.[address] [facility] MCHC Auto (RBC) [Mass/Vol]on 12-27-2023 MCHC (RBC) [Mass/Vol] 32.5 g/dL 29.9-35.2 [facility] MCV Auto (RBC) [Entitic vol] on 12-27-2023 MCV (RBC) [Entitic vol] 87.8 fL 81.0-99.[address] [facility] Monocytes Auto (Bld) [#/Vol] on 12-27-2023 Monocytes (Bld) [#/Vol] 0.3 10 3/uL 0.3-0.[address] [facility] Monocytes/100 WBC Auto (Bld) on 12-27-2023 Monocytes/100 WBC (Bld) 6.4 % 1.7-12.[address] [facility] Neutrophils Auto (Bld) [#/Vo l]on 12-27-2023 Neutrophils (Bld) [#/Vol] 2.2 10 3/uL 1.4-6.[address] [facility] Neutrophils/100 WBC Auto (Bl d)on 12-27-2023 Neutrophils/100 WBC (Bld) 41.8 % Low 43.0-75.[address] [facility] No Panel Informationon 12-26 Eosinophils # (Auto) 0.4 10 3/uL 0.0-0.7 [facility] Immature Granulocyte # (Auto) 0.02 10 3/uL 0.00-0.[address] [facility] Platelet mean volume Auto (B ld) [Entitic vol]on 12-27-2023 Platelet mean volume (Bld) [Entitic vol] 9.6 fL 9.5-13.[address] [facility] Platelets Auto (Bld) [#/Vol] on 12-27-2023 Platelets (Bld) [#/Vol] 190 10 3/uL 150-[address] [facility] RBC Auto (Bld) [#/Vol]on RBC (Bld) [#/Vol] 4.52 10 6/uL 4.20-5.40 [facility] Serum or plasma albumin/glob ulin mass ratioon 12-27-2023 Albumin/Globulin [Mass ratio] 1.2 {ratio} [facility] Serum or plasma anion gap de terminationon 12-27-2023 Anion gap [Moles/Vol] 14.7 mmol/L [facility] Serum or plasma total choles terol/high density lipoprotein (HDL) cholesterol mass desiree 12-27-2023 Cholesterol.total/Cho lesterol in HDL [Mass ratio] 3.8 {ratio} [facility] Comment on above: 3.3 - 4.4 [...] BERNY CANO Date: 2022-08-24 07:19 Normal [facility] CBC AUTO DIFFon 03-30-2022 BASO # 0.0 103/ul Normal 0.0-0.1 [facility] Comment on above: Performed By: #### C BC #### [facility] [address] [address] [address] Rc Foster Basophils/100 WBC (Bld) 0.4 % Normal 0.2-2.0 [facility] Comment on above: Performed By: #### C BC #### [facility] [address] [address] [address] Rc Foster EO # 0.3 103/ul Normal 0.0-0.7 [facility] Comment on above: Performed By: #### C BC #### [facility] [address] [address] [address] Rc Foster Eosinophils/100 WBC (Bld) 4.9 % Normal 0.9-7.0 [facility] Comment on above: Performed By: #### C BC #### [facility] [address] [address] [address] Rc Foster Erythrocyte distribution width (RBC) [Ratio] 12.2 % Normal 11.0-15.0 [facility] Comment on above: Performed By: #### C BC #### [facility] [address] [place] [address] Dr. Rc Foster Hematocrit (Bld) [Volume fraction] 39.8 % Normal 36.0-48.0 [facility] Comment on above: Performed By: #### C BC #### [facility] [address] [address] [address] Rc Foster Hemoglobin (Bld) [Mass/Vol] 13.1 g/dL Normal 12.0-16.0 [facility] Comment on above: Performed By: #### C BC #### [facility] [address] [address] [address] Rc Foster IG # 0.02 10e3/ul Normal 0.00-0.03 [facility] [facility] Comment on above: Performed By: #### C BC #### [facility] [address] [place] [address] Dr. Rc Foster IG % 0.4 % Normal 0.0-0.5 [facility] Comment on above: Performed By: #### C BC #### [facility] [address] [place] [address] Dr. Rc Foster LYMPH # 2.1 103/ul Normal 1.2-3.8 [facility] Comment on above: Performed By: #### C BC #### [facility] [address] [place] [address] Dr. Rc Foster Lymphocytes/100 WBC (Bld) 37.1 % Normal 20.5-60.0 [facility] Comment on above: Performed By: #### C BC #### [facility] [address] [place] [address] Dr. Rc Foster MANUAL DIFF REQ NO Normal [facility] Comment on above: Performed By: #### C BC #### [facility] [address] [place] [address] Dr. Rc Foster MCH (RBC) [Entitic mass] 28.7 pg Normal 26.7-34.0 [facility] Comment on above: Performed By: #### C BC #### [facility] [address] [place] [address] Dr. Rc Foster MCHC (RBC) [Mass/Vol] 32.9 g/dL Normal 29.9-35.2 [facility] Comment on above: Performed By: #### C BC #### [facility] [address] [place] [address] Dr. Rc Foster MCV (RBC) [Entitic vol] 87.1 fL Normal 81.0-99.0 [facility] Comment on above: Performed By: #### C BC #### [facility] [address] [place] [address] Dr. Rc Foster MONO # 0.4 103/ul Normal 0.3-0.8 [facility] Comment on above: Performed By: #### C BC #### [facility] [address] [place] [address] Dr. Rc Foster Monocytes/100 WBC (Bld) 6.7 % Normal 1.7-12.0 [facility] Comment on above: Performed By: #### C BC #### [facility] [address] [place] [address] Dr. Rc Foster NEUT # 2.9 103/ul Normal 1.4-6.5 [facility] Comment on above: Performed By: #### C BC #### [facility] [address] [place] [address] Dr. Rc Foster Neutrophils/100 WBC (Bld) 50.5 % Normal 43.0-75.0 [facility] Comment on above: Performed By: #### C BC #### [facility] [address] [place] [address] Dr. Rc Foster Platelet mean volume (Bld) [Entitic vol] 9.7 fL Normal 9.5-13.5 [facility] Comment on above: Performed By: #### C BC #### [facility] [address] [place] [address] Dr. Rc Foster PLT 189 103/ul Normal 150-450 [facility] Comment on above: Performed By: #### C BC #### [facility] [address] [place] [address] Dr. Rc Foster RBC 4.57 106/ul Normal 4.20-5.40 [facility] Comment on above: Performed By: #### C BC #### [facility] [address] [place] [address] Dr. Rc Foster WBC 5.7 103/ul Normal 4.0-11.0 [facility] Comment on above: Performed By: #### C BC #### [facility] [address] [place] [address] Dr. Rc Foster GLYCOHEMOGLOBIN A1Con 2021 ADA RECOMMENDATION SEE BELOW Normal [facility] Comment on above: Result Comment: ADA RECOMMENDED LIMIT 4.0 - 6.0 ADA THERAPEUTIC TARGET < 7.0 ACTION SUGGESTED > 7.0 Performed By: #### A 1C #### [facility] [address] [address] [address] Rc Foster Glucose [Mass/Vol] 143 mg/dL Normal [facility] Comment on above: Performed By: #### A 1C #### [facility] [address] [address] [address] Rc Foster HbA1c (Bld) [Mass fraction] 6.6 % Critically high 4.5-6.2 [facility] Comment on above: Performed By: #### A 1C #### [facility] [address] [address] [address] Rc Foster LIPID PROFILEon 03-30-2022 CHOL-HDL RATIO NORM SEE BELOW Normal [facility] Comment on above: Result Comment: 3.3 - 4.4 LOW RISK 4.4 - 7.1 AVERAGE RISK 7.1 - 11.0 MODERATE RISK >11.0 HIGH RISK Performed By: #### T SH, CMP, LIPID ####[facility] [address] [place] [id number]. Rc Foster Cholesterol [Mass/Vol] 184 mg/dL Normal <=200 [facility] Comment on above: Performed By: #### T SH, CMP, LIPID ####[facility] [address] [place] [id number]. Rc Foster Cholesterol in HDL [Mass/Vol] 42 mg/dL Normal 40-60 [facility] Comment on above: Performed By: #### T SH, CMP, LIPID ####[facility] [address] [place] [phone]. Rc Foster Cholesterol in LDL [Mass/Vol] 87.0 mg/dL Normal [facility] Comment on above: Performed By: #### T SH, CMP, LIPID ####[facility] [address] [place], [place] [address]Iv. Rc Foster Cholesterol.total/Cho lesterol in HDL [Mass ratio] 4.4 {ratio} Normal [facility] Comment on above: Performed By: #### T SH, CMP, LIPID ####[facility] [address] [place] [phone]. Rc Foster HDL NORMAL > or = 60 mg/dl - LO W CARDIOVASCULAR RISK <40 mg/dl - HIGH CARDIOVASCULAR RISK Normal [facility] Comment on above: Performed By: #### T SH, CMP, LIPID ####[facility] [address] [place] [phone]. Rc Foster LDL CALC NORMAL SEE BELOW Normal [facility] Comment on above: Result Comment: <100 mg/dl OPTIMAL 100 - 129 mg/dl NEAR OR ABOVE OPTIMAL 130 - 159 mg/dl BORDERLINE HIGH 160 - 189 mg/dl HIGH >190 mg/dl VERY HIGH Performed By: #### T SH, CMP, LIPID ####[facility] [address] [place] [phone]. Rc Foster Triglyceride [Mass/Vol] 275 mg/dL Critically high <=150 [facility] Comment on above: Performed By: #### T SH, CMP, LIPID ####[facility] [address] [place] [phone]. Rc Foster VLDL CALC 55.0 mg/dL Normal [facility] Comment on above: Performed By: #### T SH, CMP, LIPID ####[facility] [address] [place] [phone]. Rc Foster PROF 14(COMP METB)on 022 Albumin [Mass/Vol] 4.0 g/dL Normal 3.4-5.0 [facility] Comment on above: Performed By: #### T SH, CMP, LIPID ####[facility] [address] [place] [phone]. Rc Foster Albumin/Globulin [Mass ratio] 1.1 {ratio} Normal [facility] Comment on above: Performed By: #### T SH, CMP, LIPID ####[facility] [address] [place] [phone]. Rc Foster ALP [Catalytic activity/Vol] 71 U/L Normal 46-116 [facility] Comment on above: Performed By: #### T SH, CMP, LIPID ####[facility] [address] [place] [phone]. Rc Foster ALT [Catalytic activity/Vol] 29 U/L Normal 14-59 [facility] Comment on above: Performed By: #### T SH, CMP, LIPID ####[facility] [address] [place] [address]Dr. Rc Foster Anion gap [Moles/Vol] 13.2 mmol/L Normal [facility] Comment on above: Performed By: #### T SH, CMP, LIPID ####[facility] [address] [place] [address]Dr. Rc Foster AST [Catalytic activity/Vol] 17 U/L Normal 15-37 [facility] Comment on above: Performed By: #### T SH, CMP, LIPID ####[facility] [address] [place] [address]Dr. Rc Foster Bilirubin [Mass/Vol] 0.6 mg/dL Normal 0.2-1.0 [facility] Comment on above: Performed By: #### T SH, CMP, LIPID ####[facility] [address] [place], [place] [address]Dr. Rc Foster Calcium [Mass/Vol] 9.0 mg/dL Normal 8.5-10.1 [facility] Comment on above: Performed By: #### T SH, CMP, LIPID ####[facility] [address] [place] [address]Dr. Rc Foster Chloride [Moles/Vol] 102 mmol/L Normal 98-107 [facility] Comment on above: Performed By: #### T SH, CMP, LIPID ####[facility] [address] [place] [address]Dr. Rc Foster CO2 [Moles/Vol] 27.3 mmol/L Normal 21.0-32.0 [facility] Comment on above: Performed By: #### T SH, CMP, LIPID ####[facility] [address] [place] [address]Dr. Rc Foster Creatinine [Mass/Vol] 1.00 mg/dL Normal 0.55-1.02 [facility] Comment on above: Performed By: #### T SH, CMP, LIPID ####[facility] [address] [place] [address]Dr. Rc Foster EGFR-AF GHANAIAN >60 Normal >=60 [facility] Comment on above: Performed By: #### T SH, CMP, LIPID ####[facility] [address] [place] [address]Dr. Rc Foster EGFR-NON AF GHANAIAN 56 mL/min/1.73m2 Critically low >=60 [facility] Comment on above: Performed By: #### T SH, CMP, LIPID ####[facility] [address] [place] [address]Dr. Rc Foster Globulin (S) [Mass/Vol] 3.5 g/dL Normal [facility] Comment on above: Performed By: #### T MARY JANE, CMP, LIPID ####[facility] [address] [place] [address]Dr. Rc Foster Glucose [Mass/Vol] 159 mg/dL Critically high 74-106 [facility] Comment on above: Performed By: #### T MARY JANE, CMP, LIPID ####[facility] [address] [place], [place] [address]Dr. Rc Foster Potassium [Moles/Vol] 4.5 mmol/L Normal 3.5-5.1 [facility] Comment on above: Performed By: #### T SH, CMP, LIPID ####[facility] [address] [place] [address]Dr. Rc Foster Protein [Mass/Vol] 7.5 g/dL Normal 6.4-8.2 [facility] Comment on above: Performed By: #### T SH, CMP, LIPID ####[facility] [address] [place] [address]Dr. Rc Foster Sodium [Moles/Vol] 138 mmol/L Normal 136-145 [facility] Comment on above: Performed By: #### T SH, CMP, LIPID ####[facility] [address] [place] [address]Dr. Rc Foster Urea nitrogen [Mass/Vol] 23.0 mg/dL Critically high 7.0-18.0 [facility] Comment on above: Performed By: #### T SH, CMP, LIPID ####[facility] [address] [place], [place] [address]Aa. Rc Foster Urea nitrogen/Creatinine [Mass ratio] 23.0 mg/mg Normal [facility] Comment on above: Performed By: #### T SH, CMP, LIPID ####[facility] [address] [place], [place] [address]Vs. Rc Foster TSHon 03-30-2022 TSH 2.807 uIU/mL Normal 0.358-3.740 [facility] Comment on above: Performed By: #### T SH, CMP, LIPID ####[facility] [address] [place], [place] [address]Qa. Rc Foster US THYROIDon 03-30-2022 US THYROID [...] by: BERNY CANO Date: 2022-03-30 11:03 Normal [facility] MG MAMM SCREEN 3D LEX CADon 03-19-2022 MG MAMM SCREEN 3D LEX CAD Patient: CARROLL HARDEN Exam Date: 03/19/2022 : 1960 Gender:F Ordering : DR ROBERT CRUZ D.O. Admission #: [id number] Family : Order #: [id number] CLICK HERE TO VIEW EXAM RADIOLOGY REPORT [...] Treatments None Family Cancers None LOCATION: [facility] BREAST COMPOSITION: Scattered areas fibroglandular [...] M.D. on 03/23/2022 at 11:59 Normal [facility] CBC AUTO DIFFon 11-27-2021 BASO # 0.0 103/ul Normal 0.0-0.1 [facility] Comment on above: Performed By: #### C BC #### [facility] [address] [place] [address] Dr. Rc Foster Basophils/100 WBC (Bld) 0.7 % Normal 0.2-2.0 [facility] Comment on above: Performed By: #### C BC #### [facility] [address] [address] [address] Rc Foster EO # 0.6 103/ul Normal 0.0-0.7 [facility] Comment on above: Performed By: #### C BC #### [facility] [address] [place] [address] Dr. Rc Foster Eosinophils/100 WBC (Bld) 10.3 % Critically high 0.9-7.0 [facility] Comment on above: Performed By: #### C BC #### [facility] [address] [place] [address] Dr. Rc Foster Erythrocyte distribution width (RBC) [Ratio] 12.4 % Normal 11.0-15.0 [facility] Comment on above: Performed By: #### C BC #### [facility] [address] [place] [address] Dr. Rc Foster Hematocrit (Bld) [Volume fraction] 41.2 % Normal 36.0-48.0 [facility] Comment on above: Performed By: #### C BC #### [facility] [address] [place] [address] Dr. Rc Foster Hemoglobin (Bld) [Mass/Vol] 13.4 g/dL Normal 12.0-16.0 [facility] Comment on above: Performed By: #### C BC #### [facility] [address] [place] [address] Dr. Rc Foster IG # 0.01 10e3/ul Normal 0.00-0.03 [facility] Comment on above: Performed By: #### C BC #### [facility] [address] [place] [address] Dr. Rc Foster IG % 0.2 % Normal 0.0-0.5 [facility] Comment on above: Performed By: #### C BC #### [facility] [address] [place] [address] Dr. Rc Foster LYMPH # 2.3 103/ul Normal 1.2-3.8 [facility] Comment on above: Performed By: #### C BC #### [facility] [address] [place] [address] Dr. Rc Foster Lymphocytes/100 WBC (Bld) 40.6 % Normal 20.5-60.0 [facility] Comment on above: Performed By: #### C BC #### [facility] [address] [place] [address] Dr. Rc Foster MANUAL DIFF REQ NO Normal [facility] Comment on above: Performed By: #### C BC #### [facility] [address] [address] [address] Rc Foster MCH (RBC) [Entitic mass] 28.8 pg Normal 26.7-34.0 [facility] Comment on above: Performed By: #### C BC #### [facility] [address] [address] [address] Rc Foster MCHC (RBC) [Mass/Vol] 32.5 g/dL Normal 29.9-35.2 [facility] Comment on above: Performed By: #### C BC #### [facility] [address] [place] [address] Dr. Rc Foster MCV (RBC) [Entitic vol] 88.6 fL Normal 81.0-99.0 [facility] Comment on above: Performed By: #### C BC #### [facility] [address] [place] [address] Dr. Rc Foster MONO # 0.4 103/ul Normal 0.3-0.8 [facility] Comment on above: Performed By: #### C BC #### [facility] [address] [place] [address] Dr. Rc Foster Monocytes/100 WBC (Bld) 7.6 % Normal 1.7-12.0 [facility] Comment on above: Performed By: #### C BC #### [facility] [address] [place] [address] Dr. Rc Foster NEUT # 2.3 103/ul Normal 1.4-6.5 [facility] Comment on above: Performed By: #### C BC #### [facility] [address] [place] [address] Dr. Rc Foster Neutrophils/100 WBC (Bld) 40.6 % Critically low 43.0-75.0 [facility] Comment on above: Performed By: #### C BC #### [facility] [address] [place] [address] Dr. Rc Foster Platelet mean volume (Bld) [Entitic vol] 9.6 fL Normal 9.5-13.5 [facility] Comment on above: Performed By: #### C BC #### [facility] [address] [place] [address] Dr. Rc Foster PLT 194 103/ul Normal 150-450 [facility] Comment on above: Performed By: #### C BC #### [facility] [address] [place] [address] Dr. Rc Foster RBC 4.65 106/ul Normal 4.20-5.40 [facility] Comment on above: Performed By: #### C BC #### [facility] [address] [place] [address] Dr. Rc Foster WBC 5.5 103/ul Normal 4.0-11.0 [facility] Comment on above: Performed By: #### C BC #### [facility] [address] [place] [address] Dr. Rc Foster GLYCOHEMOGLOBIN A1Con 2021 ADA RECOMMENDATION SEE BELOW Normal [facility] Comment on above: Result Comment: ADA RECOMMENDED LIMIT 4.0 - 6.0 ADA THERAPEUTIC TARGET < 7.0 ACTION SUGGESTED > 7.0 Performed By: #### A 1C #### [facility] [address] [place] [address] Dr. Rc Foster Glucose [Mass/Vol] 131 mg/dL Normal [facility] Comment on above: Performed By: #### A 1C #### [facility] [address] [place] [address] Dr. Rc Foster HbA1c (Bld) [Mass fraction] 6.2 % Normal 4.5-6.2 [facility] Comment on above: Performed By: #### A 1C #### [facility] [address] [place] [address] Dr. Rc Foster PROF CHEM 8 (BAS METB)on Anion gap [Moles/Vol] 15.2 mmol/L Normal [facility] Comment on above: Performed By: #### T SH, BMP #### [facility] [address] [place] [address] Dr. Rc Foster Calcium [Mass/Vol] 8.5 mg/dL Normal 8.5-10.1 [facility] Comment on above: Performed By: #### T SH, BMP #### [facility] [address] [place] [address] Dr. Rc Foster Chloride [Moles/Vol] 100 mmol/L Normal 98-107 [facility] Comment on above: Performed By: #### T SH, BMP #### [facility] [address] [place] [address] Dr. Rc Foster CO2 [Moles/Vol] 26.6 mmol/L Normal 21.0-32.0 [facility] Comment on above: Performed By: #### T MARY JANE, BMP #### [facility] [address] [place] [address] Dr. Rc Foster Creatinine [Mass/Vol] 1.15 mg/dL Critically high 0.55-1.02 [facility] Comment on above: Performed By: #### T MARY JANE, BMP #### [facility] [address] [place] [address] Dr. Rc Foster EGFR-AF GHANAIAN 58 mL/min/1.73m2 Critically low >=60 [facility] Comment on above: Performed By: #### T MARY JANE, BMP #### [facility] [address] [place] [address] Dr. Rc Foster EGFR-NON AF GHANAIAN 48 mL/min/1.73m2 Critically low >=60 [facility] Comment on above: Performed By: #### T MARY JANE, BMP #### [facility] [address] [place] [address] Dr. Rc Foster Glucose [Mass/Vol] 211 mg/dL Critically high 74-106 [facility] Comment on above: Performed By: #### T SH, BMP #### [facility] [address] [place] [address] Dr. Rc Foster Potassium [Moles/Vol] 4.8 mmol/L Normal 3.5-5.1 [facility] Comment on above: Performed By: #### T MARY JANE, BMP #### [facility] [address] [place], [place] [id number] Dr. Rc Foster Sodium [Moles/Vol] 137 mmol/L Normal 136-145 [facility] Comment on above: Performed By: #### T SH, BMP #### [facility] [address] [address] [address] Rc Foster Urea nitrogen [Mass/Vol] 33.0 mg/dL Critically high 7.0-18.0 [facility] Comment on above: Performed By: #### T SH, BMP #### [facility] [address] [address] [address] Rc Foster Urea nitrogen/Creatinine [Mass ratio] 28.7 mg/mg Normal [facility] Comment on above: Performed By: #### T MARY JANE, BMP #### [facility] [address] [place] [address] Dr. Rc Foster TSHon 11-27-2021 TSH 0.744 uIU/mL Normal 0.358-3.740 [facility] Comment on above: Performed By: #### T SH, BMP #### [facility] [address] [address] [address] Rc Foster SYMPTOMATIC COVID-19 ANTIGEN on 10-28-2021 EUA Statement SEE BELOW Normal [facility] Comment on above: Result [...] revoked sooner. Performed By: #### C VDAGS ####[facility] [address] [place] [address]Dr. Rc Foster SARS-CoV-2 (COVID-19) RNA YARED+probe Ql (Unsp spec) Negative Normal NEGATIVE [facility] Comment on above: Performed By: #### C VDAGS ####[facility] [address] [place], [place] [address]ZiDr. Rc Foster GLYCOHEMOGLOBIN A1Con 2021 ADA RECOMMENDATION SEE BELOW Normal [facility] Comment on above: Result Comment: ADA RECOMMENDED LIMIT 4.0 - 6.0 ADA THERAPEUTIC TARGET < 7.0 ACTION SUGGESTED > 7.0 Performed By: #### A 1C #### [facility] [address] [place], [place] [address] Dr. Rc Foster Glucose [Mass/Vol] 128 mg/dL Normal [facility] Comment on above: Performed By: #### A 1C #### [facility] [address] [place], [place] [address] Dr. Rc Foster HbA1c (Bld) [Mass fraction] 6.1 % Normal 4.5-6.2 [facility] Comment on above: Performed By: #### A 1C #### [facility] [address] [place], [place] [address] Dr. Rc Foster Discharge CCD Assessmenton 0 09-06-2020 Discharge CCD Assessment [facility] Patient: CARROLL HARDEN [facility] [place] [address] MR#: [id number] DISCHARGE CCD ASSESSMENT : 58 Service Date: 09/06/20 1018 Discharge CCD Assessment Assessment Patient discharged home to continue exercises, pain medication, and wound care Electronically Signed eSign Date and Time Melyssa Flores 09/06/20 1019 Tera Hernandez MD Normal [facility] GLUCOSE METERon 09-06-2020 Glucose [Mass/Vol] 126 mg/dL High 70-[address] [facility] Comment on above: Order Comment: CONSE RVATION Result Comment: Fast ing GLUCOSE reference range has been updated per (ADA) [place] [employer]'s recommendation. 07/18/2018 Performed By: #### L 500.91984 ####Test performed at: [place] [address] Glucose [Mass/Vol] 205 mg/dL High 70-[address] [facility] Comment on above: Order Comment: CONSE RVATION Result Comment: Fast ing GLUCOSE reference range has been updated per (ADA) [place] [employer]'s recommendation. 07/18/2018 Insulin per sl scale Performed By: #### L 500.23880 #### Test performed at: [address] [place] [address] Internal Med Progress Noteon 09-06-2020 Internal Med Progress Note [facility] Patient: CARROLL HARDEN [address] [place] [address] MR#: [id number] PROGRESS NOTE - Internal Medicine : 58 [...] Flanagan RES, Katarzyna MD 09/06/20 1134 Normal [facility] Orthopedic Progress Noteon 0 09-06-2020 Orthopedic Progress Note [facility] Patient: CARROLL HARDEN [address] [place] [address] MR#: [id number] PROGRESS NOTE - Orthopedic : 58 Service [...] RN 09/06/20 1022 Tera Hernandez MD Normal [facility] Anesthesia Noteon 09-05-2020 Anesthesia Note [facility] Patient: CARROLL HARDEN [address] [place] [address] MR#: [id number] ANESTHESIA NOTE : Service Date: 09/05/20 08 [...] Signed eSign Date and Time Krystian Akers APRN-RESTAURANT ATTENDANT 09/05/20 0813 Chu Glez MD Normal [facility] BASIC MET PANELon 09-05-2020 Anion gap [Moles/Vol] 12 mmol/L Normal 6-18 [facility] Comment on above: Performed By: #### L 500.99590, L500.52178 #### Test performed at: [address] [address] Calcium [Mass/Vol] 8.7 mg/dL Normal 8.5-10.[address] [facility] Comment on above: Performed By: #### L 500.77481, L500.36540 #### Test performed at: [address] [address] Chloride [Moles/Vol] 101 mmol/L Normal 98-107 [facility] Comment on above: Performed By: #### L 500.49633, L500.51101 #### Test performed at: [address] [address] CO2 [Moles/Vol] 25 mmol/L Normal 21-32 [facility] Comment on above: Performed By: #### L 500.03977, L500.21666 #### Test performed at: [address] [address] Creatinine [Mass/Vol] 1.020 mg/dL Normal 0.550-1.020 [facility] Comment on above: Performed By: #### L 500.53239, L500.27591 #### Test performed at: [address] [address] Glucose [Mass/Vol] 264 mg/dL High 70-[address] [facility] Comment on above: Result Comment: Fast ing GLUCOSE reference range has been updated per (ADA) [place] [employer]'s recommendation. 07/18/2018 Performed By: #### L 500.08055, L500.42943 #### Test performed at: [address] [address] OSM 289 mosm/kg Normal 270-300 [facility] Comment on above: Performed By: #### L 500.98187, L500.97446 #### Test performed at: [address] [address] Potassium [Moles/Vol] 4.5 mmol/L Normal 3.5-5.1 [facility] [place] Comment on above: Performed By: #### L 500.84725, L500.21885 #### Test performed at: [address] [address] Sodium [Moles/Vol] 134 mmol/L Low 136-[address] [facility] Comment on above: Performed By: #### L 500.72741, L500.88165 #### Test performed at: [place] [id number] Urea nitrogen [Mass/Vol] 17 mg/dL Normal 7-18 [facility] [place] [facility] Comment on above: Performed By: #### L 500.22116, L500.90807 #### Test performed at: [place] [id number] GFR ESTIMATEon 09-05-2020 IF AMER > 60 Normal > 60 [facility] Comment on above: Result Comment: eGFR (Estimated GFR) Units of measure:mL/min/1.73 meters sq. *CALCULATION REVISED 02/11/2015;IDMS-traceable MDRD equation eGFR is derived from the reexpressed MDRD Study equation using the following parameters: serum creatinine, age, gender and race. An eGFR<60 mL/min/1.73m2 for >3 months is consistent with chronic kidney disease. Refer to KDOQI guidelines for clinical interpretation. Performed By: #### L 500.80410, L500.66588 #### Test performed at: [place] [id number] IF non-AFR AMER 55 Low > 60 [facility] Comment on above: Performed By: #### L 500.22221, L500.56138 #### Test performed at: [place] [address] [place] [address] GLUCOSE METERon 09-05-2020 Glucose [Mass/Vol] 177 mg/dL High 70-[address] [facility] Comment on above: Order Comment: CONSE RVATION Result Comment: Fast ing GLUCOSE reference range has been updated per (ADA) [place] [employer]'s recommendation. 07/18/2018 Performed By: #### L 500.31214 #### Test performed at: [address] [address] Glucose [Mass/Vol] 310 mg/dL High 70-[address] [facility] Comment on above: Result Comment: Fast ing GLUCOSE reference range has been updated per (ADA) [place] [employer]'s recommendation. 07/18/2018 Insulin per scale Performed By: #### L 500.59608 ####Test performed at: [address] [address] Glucose [Mass/Vol] 281 mg/dL High 70-[address] [facility] Comment on above: Result Comment: Fast ing GLUCOSE reference range has been updated per (ADA) [place] [employer]'s recommendation. 07/18/2018 Insulin per sl scale Performed By: #### L 500.58596 #### Test performed at: [address] [address] Glucose [Mass/Vol] 105 mg/dL High 70-[address] [facility] Comment on above: Result Comment: Fast ing GLUCOSE reference range has been updated per (ADA) [place] [employer]'s recommendation. 07/18/2018 Performed By: #### L 500.36317 #### Test performed at: [place] [address] [place] [address] HGB AND HCTon 09-05-2020 Hematocrit (Bld) [Volume fraction] 37.5 % Normal 36.0-48.0 [facility] Comment on above: Performed By: #### L 200.26312 #### Test performed at: [place] [address] Hemoglobin (Bld) [Mass/Vol] 12.5 g/dL Normal 12.0-15.0 [facility] Comment on above: Performed By: #### L 200.21192 #### Test performed at: [place] [address] Internal Med Progress Noteon 09-05-2020 Internal Med Progress Note [facility] Patient: CARROLL HARDEN [address] [place] [address] MR#: [id number] PROGRESS NOTE - Internal Medicine : 58 [...] input. Disc (more content not included)... Normal [facility] [place] [facility] OT Therapy Recommendationson 09-05-2020 OT Therapy Recommendations [facility] Patient: CARROLL HARDEN [address] [place] [address] MR#: [id number] OT THERAPY RECOMMENDATIONS : 58 Service Date: 09/05/20 1511 Therapy Recommendations Therapy Recommendations Recommendations OT evaluation completed. OT recommends HOME with FAmily assist. No further acute OT needs are indicated at this time. Electronically Signed eSign Date and Time MilTrupti carbajal OT 09/05/20 1512 Normal [facility] [place] [facility] Orthopedic Progress Noteon 0 09-05-2020 Orthopedic Progress Note [facility] Patient: CARROLL HARDEN [address] [place] [address] MR#: [id number] PROGRESS NOTE - Orthopedic : 58 Service [...] Tests 09/05 09/05 09/05 09/04 [phone] [id number] Chemistry Sodium (136 - 145 mmol/L) [...] eSign Date and Time RUBEN KHAN 09/05/20 9399 Tera Hernandez MD Normal [facility] [place] [facility] PT Therapy Recommendationson 09-05-2020 PT Therapy Recommendations [facility] Patient: CARROLL HARDEN [facility] [place] [address] MR#: [id number] PT THERAPY RECOMMENDATIONS : 58 Service Date: 09/05/20 0914 Therapy Recommendations Therapy Recommendations Recommendations PT eval complete. No further acute PT needs. Recommend d/c home /c family assist. Electronically Signed eSign Date and Time KrystenTiffanie PT 09/05/20 0914 Normal [facility] [place] [facility] z OT Inpatient Discharge Not juan 09-05-2020 z OT Inpatient Discharge Note [facility] [place] [facility] Patient: CARROLL HARDEN [address] [place], [place] [id number] MR#: [id number] OT INPATIENT DISCHARGE NOTE : 58 Service [...] Time Trupti Rojas OT 09/05/20 1534 Normal [facility] [place] [facility] z OT Inpatient Evaluationon 09-05-2020 z OT Inpatient Evaluation [facility] Patient: CARROLL HARDEN [address] [place] [id number] MR#: [id number] OT INPATIENT EVALUATION : 58 Inpatient OT HPI Date of Service 09/05/20 Time In: 1401 Time Out: 1412 Total Treatment Time (Mins) 11 Visit Reason LATERAL RECESS STENOSIS W/ RADICULOPATHY Surgery Type/Date s/p L L4-5 LAmi, foraminotomy, decompression on 09.04.20/ Lumbar spine precautions Referral Date 09/04/20 Tx Diagnosis: LOW BACK PAIN Insurance Name [employer] [facility] POS O Hospital Course Pt is [...] in basement /spouse does laundry), with 2 ZCAH with R HR, 1st floor set up. has walk in shower with shower chair. 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 Objective Precautions Lumbar [...] Excellent Nader (more content not included)... Normal [facility] [place] [facility] z PT Inpatient Discharge Not juan 09-05-2020 z PT Inpatient Discharge Note [facility] Patient: CARROLL HARDEN [address] [place] [address] MR#: [id number] PT INPATIENT DISCHARGE NOTE : 58 Service [...] Time Tiffanie Bashir PT 09/05/20 1139 Normal [facility] z PT Inpatient Evaluationon 09-05-2020 z PT Inpatient Evaluation [facility] Patient: CARROLL HARDEN [address] [place] [id number] MR#: [id number] PT INPATIENT EVALUATION : 58 Service Date: 09/05/20 0928 Inpatient PT HPI Date of Service 09/05/20 Time In: 844 Time Out: 0907 Total Treatment Time (Mins) 22 Room Number 624 Visit Reason LATERAL RECESS STENOSIS W/ RADICULOPATHY Surgery Type: L L4-5 lami, foraminotomy, decompression Surgery Date: 09/04/20 Referral Date 09/04/20 Tx Diagnosis: LOW BACK PAIN [facility] Hospital Course 60 y.o female at [facility] for above sx d/t lateral recess stenosis [...] posture. 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 Pt agreeable to use of her cane [...] Time Tiffanie Bashir PT 09/05/20 1502 Normal [facility] [place] [facility] GLUCOSE METERon 09-04-2020 Glucose [Mass/Vol] 94 mg/dL Normal 70-[address] [facility] Comment on above: Result Comment: Fast ing GLUCOSE reference range has been updated per (ADA) [place] [employer]'s recommendation. 07/18/2018 Performed By: #### L 500.08734 ####Test performed at: [place] [address] Internal Medicine Consultati onon 09-04-2020 Internal Medicine Consultation [facility] Patient: CARROLL HARDEN [address] [place], [place] [address] MR#: [id number] CONSULTATION - Internal Medicine : 58 Service Date: 09/04/20 4130 History of Present Illness Referring Physician Tera Hernandez MD Consulted Physician Amber Haines MD Reason for Consult Postoperative medical management Chief Complaint/Present Illness: s/p L4-L5 Laminectomy, Foraminectomy, Decompression. HPI Ms. Hadren is a 60 yo F with a [...] 12/11/18919 Last Action: Reviewed on 09/04/201054 by RAISA CABELLO Citalopram Hydrobromide * (CeleXA *) 40 MG TABLET 40 MG PO DAILY DEPRESSION, Ref 0 ( Reported) Entered as Reported by JORDON MATHUR on 12/11/18916 Last Action: Reviewed on 09/04/201054 by RAISA CABELLO clonazePAM * (KlonoPIN 0.5mg Tablet*) 0.5 MG TABLET 1.5 MG PO QHS RESTLESS LEG, Ref 0 ( Reported) Entered as Reported by JORDON MATHRU on 12/11/18918 Last Action: Reviewed on 09/04/201054 by RAISA CABELLO Glimepiride * (Amaryl *) 4 MG TABLET 4 MG PO DAILY, Ref 0 (Reported) Entered as Reported by JORDON MATHUR on 12/11/18915 Last Taken: 09/03/20 Last Action: Reviewed on 09/04/201054 by RAISA CABELLO Levothyroxine Sodium * (Synthroid *) 125 MCG TABLET 125 MCG PO DAILY HYPOTHROIDISM, Ref 0 (Reported) Entered as Reported by JORDON MATHUR on 12/11/18920 Last Action: Reviewed on 09/04/201054 by RAISA CABELLO Metformin HCl (Glucophage) 500 MG TABLET 500 MG PO BID DIABETES, Ref 0 (Reported) Entered as Reported by JORDON MATHUR on 12/11/18920 Last Action: Reviewed on 09/04/201054 by RAISA CABELLO Nabumetone * (Relafen *) 500 MG TABLET 1,000 MG PO BID, Ref 0 (Reported) Entered as Reported by RAISA CABELLO on 09/04/20 1051 Last Action: Reviewed [...] on 12/11/18 0916 Last Action: Reviewed on 09/04/201054 by RAISA CABELLO Scheduled PRN Medications Oxycodone [...] Reviewed on 09/04/20 105 by RAISA CABELLO Discontinued Medications oxyCODONE HCl 5mg AND Acetaminophen 325mg * (Percocet 5mg/325mg Tablet *) 1 EACH TABLET 1 EACH PO Q4-6H PRN PRN post op pain 7 Days #40 TABLET, Ref 0 Discontinued reason: DC'ed by Physician Last Action: Discontinued on 09/04/20 1048 by RAISA CABELLO Review of Systems (more content not included)... Normal [facility] OPERATIVE REPORTon OPERATIVE REPORT NAME: CARROLL HARDEN MR#: [id number] SURGEON: Tera Hernandez MD DATE OF SURGERY: [...] there were no complications. TERA HERNANDEZ MD [facility] PT NAME: FINACARROLL A MR#: [id number] [address] [place], [place] [address] ACCT: [id number] : 58 OPERATIVE REPORT JFS/MODL/[id number] E/S: Tera Hernandez MD 09/18/20 1207 Electronically Signed [facility] PT NAME: CARROLL HARDEN MR#: [id number] [address] [place], [place] [address] ACCT: [id number] : 58 OPERATIVE REPORT Normal [facility] Primary Residenton Primary Resident [facility] Pt Name: CARROLL HARDEN MR#: [id number] [address] [place] [address] ACCT: [id number] [place] [id number] : 58 Service Date: 09/04/20 1603 Primary Resident/Call Primary Resident: [id number] [place] After Hours Call: [phone] Red Team Electronically Signed eSign Date and Time Ana Flanagan RES 09/16/20 1521 Normal [facility] LUMBAR SPINE 2 OR 3 VIEWSon 09-03-2020 LUMBAR SPINE 2 OR 3 VIEWS STUDY: LUMBAR SPINE 2 OR 3 VIEWS; 09/04/2020 2:57 pm INDICATION: LEFT L4-L5 LAMINECTOMY,FORAMINOTOMY ,DECOMPRESSION. COMPARISON: None. ACCESSION NUMBER(S): [id number] ORDERING CLINICIAN: Tera Hernandez FINDINGS: Intraoperative fluoroscopy of the lumbar spine demonstrates surgical instruments posterior to L5. IMPRESSION: As above Normal [facility] CHEST PA/AP & LATERALon CHEST PA/AP & LATERAL STUDY: CHEST PA/AP LATERAL; 08/25/2020 11:00 am INDICATION: SOB/PAT. COMPARISON: None. ACCESSION NUMBER(S): [id number] ORDERING CLINICIAN: Madelyn Leslie FINDINGS: The lungs are clear without pleural effusion. Normal heart size, mediastinum, elzbieta, and pulmonary vasculature. IMPRESSION: No active disease in the chest. Normal [facility] [place] [facility] CONSULTATION REPORTon 2020 CONSULTATION REPORT NAME: CARROLL HARDEN MR#: [id number] LEAD PRESSER: Madelyn Leslie MD DATE OF CONSULTATION: 08/25/2020 [...] pulse ox is 98% on room air. [facility] PT NAME: CARROLL HARDEN MR#: [id number] [address] [place] [address] ACCT: [id number] : 58 CONSULTATION HEENT: Atraumatic head. Pupils [...] we are getting the results from her capacity manager in [place]. IMPRESSION: 1. Preop clearance for L4-L5 disk [...] courtesy of this consultation. MADELYN LESLIE MD MS/MODL/[id number] E/S: Madelyn Leslie MD 08/26/20 1750 Electronically Signed [facility] PT NAME: CARROLL HARDEN MR#: [id number] [address] [place] [address] ACCT: [id number] : 58 CONSULTATION Normal [facility] LUMB SP COMP W FLEX/EXT 6 VW S>on 08-08-2020 LUMB SP COMP W FLEX/EXT 6 VWS> STUDY: LUMB SP COMP W FLEX/EXT 6 VWS>; 08/08/2020 9:43 am INDICATION: BACK PAIN. COMPARISON: No available comparisons. ACCESSION NUMBER(S): [id number] ORDERING CLINICIAN: Tera Hernandez TECHNIQUE: 6 views [...] L5-S1 level. No evidence of instability.. Normal [facility] XR SHLDR >/=3V AP/RUSH AP/OTH R RTon [...] on Jul 03 2018 10:17AM EST [id number] [facility] ANES Holly 06-20-2018 ANES POST HNO ID: [id number] Author: Rohit Velarde Service: Anesthesiology Author Type: [...] 20, 2018 TIME: 2:38 PM PAGER/CONTACT #: [facility] PRE[facility] HNO ID: [id number] Author: Rohit Velarde Service: Anesthesiology Author Type: [...] (XYLOCAINE) 0.1-0.2 mL INTRADERMAL PRN Isreal Kim) [facility] lactated ringers infusion 5-30 mL/hr INTRAVENOUS CONTINUOUS Isreal Mccabe (Santos) [facility] ceFAZolin iv piggyback 2 g in D5W [...] June 20, 2018 TIME: 9:35 AM CSN: [id number] [facility] BRIEF OP NOTon 06-20-2018 BRIEF OP NOT HNO ID: [id number] Author: Kusum [place] Service: Orthopaedic Surgery Author Type: Resident Type: Brief Op Note Filed: 06/20/2018 5:49 PM Note Text: BRIEF OP NOTE LOG ID: [id number] Surgery/Procedure Date: 06/20/2018 Incision/Procedure Start Time: 11:18 AM Incision Close/Procedure End Time: 1:17 PM Surgeon(s)/Proceduralist (s) and Hemp Fiber Taker Off(s): Surgeon(s) and Role: * Jenna Lentz - [...] 20, 2018 TIME: 5:49 PM PAGER/CONTACT #: [facility] CASE MANAGEMon 06-20-2018 CASE MANAGEM HNO ID: [id number] Author: May Herrera (Sw) Service: Care Management Author Type: Drill Rig Operator Type: Care Mgt Progress Note Filed: [...] is pcp summary of care sent via [employer] () Nurse to provide discharge instructions. TRANSPORTATION ARRANGEMENTS: Car Spouse ADDITIONAL CONTACT RESOURCES: Needs Prior to Discharge: Ready for Discharge Appointments for Next 45 Days Date Time Provider Location Dept Phone 07/03/2018 10:00 AM CAROLA BAPTISTE AT [phone] 07/03/2018 10:30 AM GABRIEL CANTU) [facility] AT [phone] 07/31/2018 2:15 PM JENNA LENTZ AT [phone] Pt to be discharged home to follow up as above. SIGNATURE: DARIO Saini PATIENT NAME: Carroll Harden DATE: June 20, 2018 TIME: 5:31 PM PAGER/CONTACT #: [phone] Normal [facility] CASE MGT INIT ASSESon 2018 CASE MGT INIT ASS HNO ID: [id number] Author: May Herrera (Sw) Service: Care Management Author Type: Drill Rig Operator Type: Care Mgt Initial Assessment Filed: 06/20/2018 5:31 PM Note Text: CARE MANAGEMENT: ASSESSMENT AND DISCHARGE PLAN SERVICE DATE: 06/20/2018 SERVICE TIME: 5:27p PRIMARY CARE PHYSICIAN: Robert Cruz MD ADMISSION STATUS: Inpatient Needs Prior to Discharge: Ready for Discharge MEDICAL: Patient/Investigative Shopper Stated Goals: To improve my functional status Health Insurance: M[employer] None Health Issues Impacting Discharge Plan: Pt [...] None Has the Patient Been in a Long-Term Facility in the Past 30 days? 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 O.Therapy recommend home. Spouse visiting at bedside and will transport pt home later today.Further discharge needs not anticipated.SW/TCC to follow to assist with plans for discharge. SIGNATURE: DARIO Saini PATIENT NAME: Carroll Harden DATE: June 20, 2018 TIME: 5:27 PM PAGER/CONTACT #: [phone] [facility] CONSULTon 06-20-2018 CONSULT HNO ID: [id number] Author: Dulce Green Service: General Internal Medicine [...] Disp: Rfl: 06/19/2018 at 0630 rizatriptan (MAXALT DUMP TRUCK OPERATOR) 10 mg disintegrating tablet DISSOLVE 1 [...] the care of your patient. Dulce Green APRN.PIN TICKET MACHINE OPERATOR June 20, 2018 4:34 PM Normal [facility] NURSING PROGon 06-20-2018 Protein mass conc HNO ID: [id number] Author: Fela (Rn) FLETCHER Phillips Service: (none) Author Type: Registered Nurse Type: Nursing Progress Note Filed: 06/20/2018 7:39 PM Note Text: Nursing Progress Note Patient Name: Carroll Harden Patient [facility] [place] Daily Note: 1545. Care assumed. Pt resting comfortably in bed, call light and possessions within reach. Lungs clear on RA, denies SOB and chest pain. Bowel sounds present, denies nausea. Sling immobilizer in place to R arm. Denie robinson. Sensation intact, able to wiggle fingers. Plan is to see OT, once cleared by them pt can be D/[place] per Sun. 1400. OT at bedside. 1720. Dr. Blake and Dulce SALES ACTIVITY MANAGER at bedside, plan is to stay for [...] note was completed by: Fela Phillips RN [facility] Protein mass conc HNO ID: [id number] Author: Wendy ValenciaRn) FLETCHER Underwood Service: Nursing Author Type: Registered Nurse Type: Nursing Progress Note Filed: 06/20/2018 10:20 AM Note Text: Nursing Progress Note Patient Name: Carroll Harden Patient Location: SURGERY [facility]/ S* Daily Note:Right interscalene nerve block with ultrasound guidance with Dr. Velarde and Dr. Marlow at bedside. Patient tolerated procedure well, VSS, will continue to monitor as we wait for OR team. Resting comfortably with no complaints of pain at this time. This note was completed by: Wendy Underwood RN [facility] OPERATIVE NOon 06-20-2018 OPERATIVE NO HNO ID: [id number] Author: Jenna Lentz Service: Orthopaedic Surgery Author Type: Physician Type: Operative Report Filed: 06/20/2018 1:25 PM Note Text: [place] [address] [place] OPERATIVE REPORT NAME: Carroll Harden [facility] #: [id number] DATE: 06/20/2018 (11:18am-1:17pm) AGE: 58 SURGEON 1: Jenna Lentz M.D. TAKE UP OPERATOR: 1. Augie Coates M.D. 2. Kusum Prasad M.D. 3. Mundo Pablo OPERATION: Right total shoulder arthroplasty, biceps tenodesis. ANESTHESIA: General anesthesia with regional interscalene nerve block for postoperative pain control. PREOPERATIVE DIAGNOSIS: Right shoulder primary glenohumeral osteoarthritis. POSTOPERATIVE DIAGNOSIS: Right shoulder primary glenohumeral osteoarthritis, biceps tendinopathy. OPERATIVE INDICATIONS: The patient is a 58 year oldfzo-bnbl-ddf right-hand dominant white female who has a [...] rotator interval stitch was then passed in tnmwwo-ss-qozcu fashion with a #2 Ticron suture and tied down to close the lateral rotator interval and set the osteotomy superiorly. The two #2 Fiberwire sutures coming out of the bicipital groove were then sequentially passed in a byrbnm-ky-etysd fashion medial to the horizontal mattress and [...] Augie Coates M.D., Kusum Prasad M.D., and Isreal [facility] with the primary surgeon (Jenna Lentz M.D.) readily available. The remainder of the procedure, including all critical elements, was completed by the primary surgeon (Jenna Lentz M.D.) with assistance from Augie Coates M.D., and Kusum Prasad M.D. ESTIMATED BLOOD LOSS: 150 cc DRAINS: none SPECIMENS: none COMPLICATIONS: none apparent Jenna Lentz M.D. [facility] PT EDon 06-20-2018 PT ED HNO ID: [id number] Author: Cindy (Rn) FLETCHER Griffin Service: (none) [...] Signed By: Cindy Griffin RN In Department: [facility] SURGICAL [facility] THERAPY NTon 06-20-2018 THERAPY NT HNO ID: [id number] Author: Abi ValenciaOtTyesha Phillips Service: Occupational Therapy Author Type: Occupational Therapist Type: Therapy (PT/OT/Speech/Resp) Filed: 06/20/2018 4:59 PM Note Text: Occupational Therapy Evaluation SERVICE DATE: 06/20/2018 SERVICE TIME: 1550 to 1640 ROOM: [address] Recommended Discharge Disposition: Home Anticipated Discharge [...] daily living (ADL) Interventions Provided: Evaluation;Therapeutic Exercise (52459);Self Penitentiary Management (30613) $ Evaluation-Low (15452) Billed Units: 1 unit Therapeutic Exercise (70006) Treatment Minutes: 10 1 unit Skilled Intervention(s): Education in Self Penitentiary Management (64895) Treatment Minutes: 28 2 units Skilled Intervention(s): [...] DATE: June 20, 2018 TIME: 4:54 PM [facility] XR SHOULDER 2V AP/TRUE AP RT [...] on Jun 20 2018 2:04PM EST [id number] [facility] NURSING PROGon 06-09-2018 Protein mass conc HNO ID: [id number] Author: Ivana ValenciaRn) FLETCHER Heller Service: Nursing [...] 2018 11:10 AM Addendum 06/15/18 EKG IN [facility] FINAL Ivana Heller RN June 15, 2018 4:39 PM Normal [facility] Type and SCR (30D)on 019 ABO/RH(D) Positive Normal [facility] HOSPon 04-28-2018 HOSP Patient:Adalberto Harden MRN: Height:5' 2 (1.575 m) Weight:186 lb (84.369 kg) Outpatient Medications as of 06/20/18: calcium phosphate dibas/vit D3 (VITAMIN D, WITH CALCIUM, ORAL) docusate sodium (COLACE) 100 mg capsule aspirin, enteric coated (ECOTRIN LOW STRENGTH) 81 mg EC tablet oxyCODONE-acetaminophen (PERCOCET) 5-325 mg tablet rizatriptan (MAXALT DUMP TRUCK OPERATOR) 10 mg disintegrating tablet mupirocin (BACTROBAN) [...] 46.0 36.0 Progress Notes (RADIO CT SCAN [facility]): RT Lillian, Tech 06/07/2018 10:04 [...] RT Lillian June 07, 2018 9:54 AM [facility] Vital Signs Date Time Vital Sign Value Performing Clinician Facility 07-04-2024 15:04-0400 Body height 154.94 cm [facility] 07-04-2024 15:04-0400 Body mass index (BMI) [Ratio] 32.9 kg/m2 [facility] 07-04-2024 15:04-0400 Body weight 79.06 kg [facility] 07-04-2024 15:04-0400 Diastolic blood pressure 79 mm[Hg] [facility] 07-04-2024 15:04-0400 Heart rate 69 /min [facility] 07-04-2024 15:04-0400 Respiratory rate 12 /min [facility] 07-04-2024 15:04-0400 Systolic blood pressure 177 mm[Hg] [facility] 06-25-2024 10:11-0500 Body temperature 97.3 [degF] [facility] 06-25-2024 10:11-0500 Diastolic blood pressure 76 mm[Hg] [facility] 06-25-2024 10:11-0500 Heart rate 54 /min [facility] 06-25-2024 10:11-0500 Respiratory rate 16 /min [facility] 06-25-2024 10:11-0500 SaO2% (BldA) [Mass fraction] 98 % [facility] 06-25-2024 10:11-0500 Systolic blood pressure 119 mm[Hg] [facility] 06-25-2024 10:07-0500 Body height 154.94 cm [facility] 06-25-2024 10:07-0500 Body mass index (BMI) [Ratio] 32.9 kg/m2 [facility] 06-25-2024 10:07-0500 Body weight 79.15 kg [facility] 02-24-2024 14:13-0400 Body height 154.94 cm [facility] 02-24-2024 14:13-0400 Body mass index (BMI) [Ratio] 33.1 kg/m2 [facility] 02-24-2024 14:13-0400 Body temperature 96 [degF] [facility] 02-24-2024 14:13-0400 Body weight 79.6 kg [facility] 02-24-2024 14:13-0400 Diastolic blood pressure 84 mm[Hg] [facility] 02-24-2024 14:13-0400 Heart rate 66 /min [facility] 02-24-2024 14:13-0400 Systolic blood pressure 159 mm[Hg] [facility] 12-20-2023 15:35-0400 Body height 154.94 cm [facility] 12-20-2023 15:35-0400 Body mass index (BMI) [Ratio] 33.8 kg/m2 [facility] 12-20-2023 15:35-0400 Body weight 81.19 kg [facility] 12-20-2023 15:35-0400 Diastolic blood pressure 80 mm[Hg] [facility] 12-20-2023 15:35-0400 Heart rate 78 /min [facility] 12-20-2023 15:35-0400 Respiratory rate 12 /min [facility] 12-20-2023 15:35-0400 Systolic blood pressure 134 mm[Hg] [facility] 04-29-2023 09:00-0500 Body height 154.94 cm Robert Ball Other [employer] Other 04-29-2023 09:00-0500 Body mass index (BMI) [Ratio] 33.14 kg/m2 Robert Ball Other [employer] Other 04-29-2023 09:00-0500 Body weight 79.56 kg Robert Ball Other [employer] Other 04-29-2023 09:00-0500 Diastolic blood pressure 89 mm[Hg] Robert Ball Other [employer] Other 04-29-2023 09:00-0500 Respiratory rate 12 /min Robert Ball Other [employer] Other 04-29-2023 09:00-0500 Systolic blood pressure 155 mm[Hg] Robert Ball Other [employer] Other 12-20-2022 13:45-0400 Body height 154.94 cm Robert Ball Other [employer] Other 12-20-2022 13:45-0400 Body mass index (BMI) [Ratio] 34.12 kg/m2 Robert Ball Other [employer] Other 12-20-2022 13:45-0400 Body weight 81.92 kg Robert Ball Other [employer] Other 12-20-2022 13:45-0400 Diastolic blood pressure 96 mm[Hg] Robert Ball Other [employer] Other 12-20-2022 13:45-0400 Respiratory rate 12 /min Robert Ball Other [facility] Other 12-20-2022 13:45-0400 Systolic blood pressure 179 mm[Hg] [facility] [employer] Other [employer] Other 08-04-2022 09:45-0400 Body height 154.94 cm Robert Ball Other [employer] Other 08-04-2022 09:45-0400 Body mass index (BMI) [Ratio] 33.33 kg/m2 Robert [employer] Other [facility] Other 08-04-2022 09:45-0400 Body weight 80.02 kg Robert [employer] Other [facility] Other 08-04-2022 09:45-0400 Diastolic blood pressure 77 mm[Hg] Robert [employer] Other [employer] Other 08-04-2022 09:45-0400 Respiratory rate 12 /min Robert [employer] Other [employer] Other 08-04-2022 09:45-0400 Systolic blood pressure 128 mm[Hg] Robert [employer] Other [employer] Other Encounters Encounter Date Encounter Type Care Provider Facility Start: 07-04-2024 End: 07-04-2024 ambulatory [facility] Work Phone: Start: 07-04-2024 End: 07-04-2024 Encounter for other preprocedural examination [facility] Start: 07-04-2024 End: 07-04-2024 Patient encounter procedure [facility] Work Phone: Start: 06-27-2024 Non-patient / Non-visit [facility] Work Phone: Start: 06-25-2024 End: 06-25-2024 ambulatory [facility] Work Phone: Start: 06-25-2024 End: 06-25-2024 Patient encounter procedure [facility] Work Phone: Start: 06-21-2024 ambulatory Raisa PRICE Facility:[facility] Start: 06-01-2024 Non-patient / Non-visit [facility] Work Phone: Start: 05-31-2024 Non-patient / Non-visit [facility] Work Phone: Start: 04-09-2024 End: 04-09-2024 ambulatory Miriam Barron MD Facility: [facility] Start: 02-24-2024 End: 02-24-2024 ambulatory [facility] Work Phone: Start: 02-24-2024 End: 02-24-2024 Patient encounter procedure [facility] Work Phone: Start: 02-22-2024 Non-patient / Non-visit [facility] Work Phone: Start: 12-27-2023 Non-patient / Non-visit [facility] Work Phone: Start: 12-20-2023 Patient encounter status [facility] Start: 12-20-2023 End: 12-20-2023 ambulatory [facility] Work Phone: Start: 12-20-2023 End: 12-20-2023 Patient encounter [facility] Work Phone: Start: 09-26-2023 End: 09-26-2023 ambulatory Miriam Barron MD Facility:[facility] Start: 08-15-2023 End: 08-15-2023 ambulatory Miriam Barron MD Facility:[facility] Start: 08-08-2023 End: 08-08-2023 ambulatory Andvalentine Barron MD Facility: [facility] Start: 06-27-2023 End: 06-27-2023 ambulatory Miriam Barron MD Facility: [place] Start: 06-06-2023 End: 06-06-2023 ambulatory Miriam Barron MD Facility: [place] Start: 06-01-2023 End: 06-01-2023 ambulatory Robert Cruz Other [employer] Other Start: 06-01-2023 Telephone encounter Robert Cruz [facility] Start: 05-23-2023 End: 05-23-2023 ambulatory Miriam Barron MD Facility: [facility] Start: 05-13-2023 End: 05-13-2023 ambulatory Robert Ball Other [employer] Other Start: 05-13-2023 Telephone encounter Robert Ball [facility] Start: 05-09-2023 End: 05-09-2023 ambulatory Robert Ball Other [employer] Other Start: 05-09-2023 Telephone encounter Robert Ball [facility] Start: 05-04-2023 End: 05-04-2023 ambulatory Robert Ball Other [employer] Other Start: 05-04-2023 Telephone encounter Robert Ball [facility] Start: 05-02-2023 End: 05-02-2023 ambulatory Robert Ball Other [employer] Other Start: 05-02-2023 Telephone encounter Robert Ball [facility] Start: 04-29-2023 End: 04-29-2023 ambulatory Robert Ball Other [employer] Other Start: 04-29-2023 Office outpatient vi sit 15 minutes Robert Ball [facility] Start: 04-04-2023 End: 04-04-2023 ambulatory Robert Ball Other [employer] Other Start: 04-04-2023 Telephone encounter Robert Ball [facility] Start: 01-24-2023 End: 01-24-2023 ambulatory Robert Ball Other [employer] Other Start: 01-24-2023 Telephone encounter Robert Ball [facility] Start: 12-23-2022 End: 12-23-2022 ambulatory Robert Ball Other [employer] Other Start: 12-23-2022 Telephone encounter Robert Ball [facility] Start: 12-20-2022 End: 12-20-2022 ambulatory Robert Ball Other [employer] Other Start: 12-20-2022 Office outpatient vi sit 15 minutes Robert Ball [facility] Start: 12-17-2022 End: 12-17-2022 ambulatory Robert Ball Other [employer] Other Start: 12-17-2022 Telephone encounter Robert Ball [facility] Start: 11-08-2022 End: 11-08-2022 ambulatory Robert Ball Other [employer] Other Start: 11-08-2022 Telephone encounter Robert Ball [facility] Start: 10-22-2022 End: 10-22-2022 ambulatory Robert Ball Other [employer] Other Start: 10-22-2022 Telephone encounter Robert Ball [facility] Start: 10-13-2022 End: 10-13-2022 ambulatory Robert Ball Other [facility] Other Start: 10-13-2022 Telephone encounter Robert Ball [facility] Start: 09-27-2022 End: 09-27-2022 ambulatory Robert Ball Other [employer] Other Start: 09-27-2022 Telephone encounter Robert Cruz [facility] Start: 08-23-2022 End: 08-24-[address] RISHI PARKER Facility:[facility] Start: 08-04-2022 End: 08-04-2022 ambulatory Robert Cruz Other [facility] [employer] Other Start: 08-04-2022 Office outpatient vi sit 25 minutes [facility] Start: 04-03-2022 Encounter for genera l adult medical examination without abnormal findings DR ROBERT CRUZ [facility] Start: 03-30-2022 End: 03-31-[address] [...] End: 07-03-2018 Patient encounter procedure [facility] Start: 06-20-2018 End: 06-20-2018 Evaluation and management of inpatient [facility] Procedures Date Procedure Procedure Detail Performing Clinician Start: 06-07-2018 Antibody screen JENNA RI GUY Plan of Treatment Date Care Activity Detail Author Comprehensive metabo lic 2000 panel - Serum or Plasma [facility] enter MG Breast - bilateral Diagnostic [facility] Payers Date Payer Category Payer Unknown 2022 [facility] [id number] 2019 Unknown [id number] 2015 Unknown [id number] 1959 Self-pay [id number] 1959 Unknown [id number] [id number] 93 1959 Unknown [id number] 2.16.840.1.778692.3.579.2.5 93 1959 Unknown [id number] 2.16.840.1.888685.3.579.2.5 93 1959 Unknown [id number] 2.16.840.1.552430.3.579.2.5 93 1959 Unknown [id number] 2.16.840.1.211163.3.579.2.5 93 1959 Unknown [id number] 2.16.840.1.749270.3.579.2.5 93 1959 Unknown [id number] 2.16.840.1.563395.3.579.2.1 96 1959 Unknown [id number] 2.16.840.1.345263.3.579.2.1 96 1959 Unknown [id number] 2.16.840.1.358942.3.579.2.1 96 1959 Unknown [id number] 2.16.840.1.580556.3.579.2.1 96 1959 Unknown [id number] 2.16.840.1.646893.3.579.2.1 96 1959 Unknown [id number] 2.16.840.1.233452.3.579.2.1 96 1959 Unknown [id number] 2.16.840.1.706858.3.579.2.1 96 1959 Unknown [id number] 2.16.840.1.357992.3.579.2.7 27 Medicare Medicare [id number] Unknown [id number] 2.16.840.1.487406.3.579.2.5 93 Unknown [facility] [id number] Unknown [facility] PF [id number] Social History Date Type Detail Facility Sex Assigned At [employer] Other Start: 1960 Sex Assigned At Female F [facility] Tobacco smoking stat [facility] Unknown if ever smoked [facility] Work Phone: Start: 06-25-2024 End: 07-04-2024 Sex Female (finding) [facility] Clinical Notes 08-04-2022 to 06-25-2024 Note Date & Type Note Facility 06-25-2024 Evaluation note Diagnosis Onset Date Resolution Cervical spondylosis acute 2024 10:04am Hypertension acute June 25, 2 025 10:04am Hx of fusion of cervical spine resolved June 25, 2024 10:04am Cervical pain deleted June 25, 2024 10:04am Hypercholesterolemia acute 2024 2:57pm Hypertension acute July 04, 2024 2:57pm Hypothyroid acute July 04, 2 025 2:57pm STEPHANIE (obstructive sleep apnea) acute July 04, 2024 2:57pm Type 2 diabetes mellitus with hyperglycemia acute July 04, 2 025 2:57pm Preop exam for internal medicine noneactive July 04, 2024 2:57pm [facility] Work Phone: [phone]) 534-603602-07-2024 Evaluation note* Encounter Date Diagnosis Assessment Notes Treatment Notes Treatment Clinical Notes May, Autoimmune thyroiditis (ICD-10 - E06.3) May, Elevated cholesterol (ICD-10 - E78.00) May, Type 2 diabetes mellitus with hyperglycemia, without long-term current use of insulin (ICD-10 - E11.65) May, Primary hypertension (ICD-10 - I10) May, Intractable chronic migraine without aura and without status migrainosus (ICD-10 - G43.719) [employer] Other 01-15-2024 Evaluation note* Encounter Date Diagnosis Assessment Notes Treatment Notes Treatment Clinical Notes Apr, Intractable chronic migraine without aura and without status migrainosus (ICD-10 - G43.719) [employer] Other 01-08-2024 Evaluation note* Encounter Date Diagnosis Assessment Notes Treatment Notes Treatment Clinical Notes Apr, Intractable chronic migraine without aura and without status migrainosus (ICD-10 - G43.719) [employer] Other 01-05-2024 Evaluation note* Encounter Date Diagnosis [...] Begin Amitriptyline Stop Tizanidine. 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 May want to cut back on Zanaflex. [...] Pain in left shoulder (ICD-10 - M25.512) [employer] Other 06-30-2023 Evaluation note* Encounter Date Diagnosis Assessment Notes Treatment Notes Treatment Clinical Notes Sep, Type 2 diabetes mellitus with hyperglycemia, without long-term current use of insulin (ICD-10 - E11.65) [employer] Other 06-05-2023 Evaluation note* Encounter Date Diagnosis Assessment Notes Treatment Notes Treatment Clinical Notes Sep, Candidiasis, intertriginous (ICD-10 - B37.2) [employer] Other 04-12-2023 Evaluation note* Encounter Date Diagnosis [...] use, the patient reduces the risk for PA, CVA, HTN, cardiac dysrhythmias and sudden cardiac [...] Jul, Other specified hypothyroidism (ICD-10 - E03.8) [facility] [employer] Other Evaluation [facility]No [facility] [employer] Other Evaluation noteNo assessment information available [facility] Work Phone: Evaluation note* Diagnosis Onset Date Resolution Status Cervical pain acute Cervical spondylosis acute Cervical pain acute Cervical spondylosis acute Painful lumpy right breast a cute [facility] Work Phone: History general Narrative - Reported* [...] LEFT HEART CATHETERIZATION 2016 Hospitalization History SEE [employer] Other History general Narrative - Reported* Type [...] Right knee arthroscopy 10/2022 Hospitalization History SEE [employer] Other Reason for referral (narrative)* Reason Evaluation of right knee pain Diagnosis 1 Strain of right knee , subsequent encounter (D55.618D) Referral Organization [facility] [place] roe Referring Provider First Name Robert Referring Provider Last Name [place] Referring Provider Specialty Internal Ut yoni Referred Provider Rishi Parker Jr Referred Provider Specialty Orthopedic S urgery Referral Priority Routine [employer] Other Reason for referral (narrative)* Reason Referral for neck pa in Diagnosis 1 Cervicalgia (M54.2) Diagnosis 2 Cervical spondylosis (M47.812) Referral Organization [facility] [employer] Odette roe Referring Provider First Name Robert Referring Provider Last Name [place] Referring Provider Specialty Internal Ut yoni Referred Organization [facility] Referred Address [address], [place],[address] Referred Provider Specialty Pain Medicin e Referral Priority Routine General Notes Patient has hx of ce rvical discectomy and fusion and presented w/ persistent neck pain, which radiated upwards causing a headache. She is being referred for treatment with the pain clinic. Clinical Notes Include MRI [employer] Other Summary Purpose Family History Relationship Condition [...] bp concerns June 25, 2024 10:0 4am Chief Complaint Admit Date bp concerns June 25, 2024 10:0 4am Pre-Surgical Clearance; TBH f/u back megan n July 04, 2024 2:57pm Reason for Visit Admit Date Cervical spondylosis June 25, 2024 10: 04am Hypertension June 25, 2024 10:0 4am Hx of fusion of cervical spine June 10:04am Cervical pain June 25, 2024 10:0 4am Hypercholesterolemia July 04, 2024 2: 57pm Hypertension July 04, 2024 2:5 7pm Hypothyroid July 04, 2024 2:5 7pm STEPHANIE (obstructive sleep apnea) June 2:57pm Type 2 diabetes mellitus with hyperglyce dion July 04, 2024 2:57pm Preop exam for internal medicine June 232024 2:57pm Additional Source Comments INFORMATION SOURCE (unrecogn ized section and content) DATE CREATED AUTHOR 06/20/2018 [facility] DATE CREATED AUTHOR AUTHOR'S ORGANIZ ATION 07/04/2018 [facility] DATE CREATED AUTHOR AUTHOR'S ORGANIZ ATION 09/18/2020 [facility] DATE CREATED AUTHOR AUTHOR'S ORGANIZ ATION 08/27/2022 [facility] DATE CREATED AUTHOR AUTHOR'S ORGANIZ ATION 04/18/[address] [facility] DATE CREATED AUTHOR AUTHOR'S ORGANIZ ATION 06/23/2024 [facility] REASON FOR VISIT (unrecogniz ed section and [...] June 25, 2024 End: June 25, 2024 Team Status: Active Member Role Status Hakeem Cruz DO Primary Care Provide r, Attending Provider Active Start: June 27, 2024 Team Status: Inactive Member Role Status Hakeem Cruz DO Primary Care Provide r, Attending Provider Active Start: July 04, 2024 End: July 04, 2024 Goals (unrecognized section and content) Goals [...] BE BASED ON THE PRIMARY CLINICAL RECORDS. [facility] [facility]. provides no warranty or guarantee of the accuracy or completeness of information in this document.
[2024-07-06] MEDS: KETOROLAC TROMETHAMINE 30 MG/ML VIAL IM (14:21)
[2024-07-06] MEDS: OXYCODONE HCL/ACETAMINOPHEN 5MG/325MG 1 TAB PO (14:21)
[2024-07-06 16:16] VITALS: BP 110/78; PULSE 88; O2SAT 98
[2024-07-06 16:18] VITALS: BP 110/68; PULSE 88; O2SAT 98
--- NOTE | 2024-07-06 17:15 | PC.NURSE ---
this nurse attempted to call report to the number provided to this nurse and no answer was received
== END 2024-07-06 16:37 | disposition short-term general hospital (02) ==
PROVIDERS: Emergency Provider Emergency Medicine; PCP Internal Medicine
DX: G57.01 Lesion of sciatic nerve, right lower limb (principal); M54.9 Dorsalgia, unspecified; I82.491 Acute embolism and thrombosis of other specified deep vein of right lower extremity; M51.16 Intervertebral disc disorders with radiculopathy, lumbar region
CPT/HCPCS: 72148; 93971; 96372; 99285; J1171; J1885

== ENCOUNTER 2024-07-12 03:22 | Emergency (ER) | payer OTHER, SELFPAY ==
[2024-07-12 03:25] VITALS: BP 88/48; PULSE 75; TEMP 36.6; O2SAT 97; BMI 33.1
--- OUTSIDE RECORDS SUMMARY | 2024-07-12 03:32 | XMS_ITS | CCD ---
Author Organization [facility] Care Team Providers Care Counselling Psychologist Name Role Phone REECE GARSIAIC New Admitting Unavailable SUN JENNA New Attending Unavailable LISANDRO MEEKS Consulting Unavailable REECE GARSIAIC New Referring Unavailable oRbert Villasenor Unavailable HAMILTON, DR NINO Admitting Unavailable BALL, [...] YESSENIA Consulting Unavailable YESSENIA WATSON Admitting Unavailable HOTerrence ., DR MAZARIEGOS Attending Unavailable HOY ., DR MAZARIEGOS Consulting Unavailable PRISCILLA ., DR MAZARIEGOS Admitting Unavailable BALL, DR NINO Primary Care Unavailable Gimadonnaitis , Miriam Stephenson Attending Unavailable Giedraitis , Jacobrius Sachin Attending Unavailable Giedraitis , Andrius Vcatracho Attending Unavailable Gibreezy HENLEY, Andrius Vcatracho Attending Unavailable Gibreezy HENLEY, Andrius Vytgarcía Attending Unavailable Giedraitis , Andrius Vytgarcía Attending Unavailable Giedraitis , Miriam Stephenson Attending Unavailable Raisa PRICE Attending Unavailable Robert Villasenor DO Primary Care Provider [phone] TERA TRAN Referring Unavailable ROBERT VILLASENOR Primary Care Unavailable JOSE SHARIF Attending Unavailable JOSE SHARIF Admitting Unavailable ELOISE VELIZ Consulting Unavailable Allergies Allergy Classification Reported Allergen(s) Allergy Type Date of Onset Reaction(s) Facility (3 sources) Contrast media; Translations: [CONTRAST DYE] Propensity to adverse reactions to drug (disorder) 09-30-19 11 [facility] Repository (2 sources) HYDROmorphone; Translations: [HYDROMORPHONE (BULK)] Drug Allergy 08-17-19 17 [facility] Repository (20 sources) Latex; Translations: [LATEX] Propensity to adverse reactions to drug (disorder) 09-30-19 11 [facility] Repository (2 sources) Meperidine; Translations: [MEPERIDINE (PF)] Drug Allergy 09-30-19 11 [facility] Repository (2 sources) Povidone-Iodine; Translations: [POVIDONE-IODINE] Drug Allergy 10-21-19 17 [facility] Repository (2 sources) SUMAtriptan; Translations: [SUMATRIPTAN SUCCINATE] Drug Allergy 09-30-19 11 [facility] Repository (2 sources) INFLUENZA VACCINE TRI-SP 09-10; Translations: [INFLUENZA VACCINE TRI-SP 09-10] Propensity to adverse reactions to drug (disorder) 09-30-19 11 [facility] Repository (3 sources) DHE; Translations: [DHE] Propensity to adverse reactions to drug (disorder) 10-24-19 13 [facility] Repository (20 sources) HYDROmorphone Drug Allergy 12-20-19 24 Unknown, Unknown Reaction [facility] (20 sources) Iodine; Translations: [iodine] Drug Allergy 10-24-19 13 Unknown, Unknown Reaction [facility] Repository (20 sources) Meperidine Drug Allergy 12-20-19 24 Unknown, Unknown Reaction [facility] (20 sources) SUMAtriptan Drug Allergy 12-20-19 24 [facility] (20 sources) Fluad Drug allergy 12-20-19 24 Unknown, Unknown Reaction [facility] (18 sources) DHEA Drug allergy 07-07-19 25 Anaphylaxis Downstream [facility] [employer] Other (2 sources) HYDROmorphone; Translations: [Dilaudid] Drug Allergy 10-24-19 13 [facility] Repository (1 source) Meperidine Drug Allergy 10-24-19 13 [facility] Repository (2 sources) Plasmin; Translations: [Imitrex] Drug Allergy 10-24-19 13 [facility] Repository (12 sources) influenza A virus (H1N1) antigen / influenza A virus (H3N2) antigen / influenza B virus antigen Drug Allergy 11-21-19 14 Comment:FLU VACCINE Downstream [facility] [employer] Other (12 sources) Contraindication to Flu Injection Propensity to adverse reactions 03-07-20 Comment:advers e rxn/side effects Downstream [facility] [employer] Other (3 sources) patient allergy list reviewed by nurse or physicia Propensity to adverse reactions 12-22-19 Comment:Done [place] Other (4 sources) Calcium Drug Allergy 12-20-19 24 Unknown Reaction [facility] (4 sources) Calcium Carbonate Drug Allergy 12-20-19 24 Unknown Reaction [facility] (4 sources) prasterone (DHEA) Allergy to substance 12-20-19 24 Unknown Reaction [facility] (4 sources) Fluad Quadrivalent Allergy to substance 04-29-19 24 Comment:FLU VACCINE [facility] Comment on above: Onset Date: 11/21/19 14 (1 source) Meperidine; Translations: [Demerol HCl] Drug Allergy [facility] Repository (1 source) flu vaccines; Translations: [flu vaccines] Propensity to adverse reactions (disorder) [facility] Repository (1 source) Iodine Strong Propensity to adverse reactions to drug 07-07-19 25 Hives [email or web address] (1 source) Meperidine Drug Allergy 07-07-19 25 Other (See Comments) [employer] Medications Current Medications Medication Drug Class(es) Dates Sig (Normalized) Sig (Original) acetaminophen 325 mg oral tablet (2 sources) Start: 07-08-2024 Start: 07-06-2024 acetaminophen (TYLENOL) tablet 650 mg Acetaminophen / HYDROcodone (3 sources) Opioid Agonist Start: 07-06-2024 HYDROcodone-ac etaminophen (NORCO) 5-325 MG per tablet 1 tablet Start: 07-04-2024 take 1 tablet by fredrick th every four to six hours as needed for pain Hydrocodone-Acetaminophen 5-325 mg table t Active 1 TAB PO EVERY 4-6 HOURS as needed for pain 28 July 04, 2024 fluconazole 100 mg oral tablet (16 sources) Azole Antifungal Start: 09-14-2022 take 1 tablet by mouth every twenty-four hours Fluconazole 100 MG 1 tablet Orally daily for 7 days August, Active glimepiride 4 mg oral tablet (20 sources) Sulfonylurea Start: 03-28-2024 take 1 tablet by mouth once daily at breakfast Glimepiride 4 mg tablet Active 0 .ROUTE .COMPLEX 90 [...] 3; Qty: 90 Tablet; Provider: Hamilton Jones glucagon (rdna) 1 mg injection (1 source) Antihypoglycemic Agent Start: 07-10-2024 1 mg, S ubCUTAneous, PRN, Starting on Tue07/10/24 at 1102, Until Discontinued, Low blood sugar, Blood glucose LESS THAN 70 mg/dL and patient NOT ALERT or NPO and does not have IV access., After administration, attempt intravenous access and start dextrose 10% at 100 mL/hr. Repeat blood glucose in 15 minutes x 2 and notify provider. Reconstitute powder for injection by adding 1 mL of plastic battery assembler-supplied sterile diluent or sterile water for injection to a vial containing 1 mg of the drug, to provide solutions containing 1 mg/mL. Shake vial gently to dissolve. Glucose (3 sources) Start: 07-10-2024 IntraVENous, a t 100 mL/hr, CONTINUOUS PRN, if blood glucose remains LESS THAN 70 mg/dL after 2 dextrose 10% intravenous boluses or administration of glucagon, Starting on Tue07/10/24 at 1102, If blood glucose fails to stabilize after 2 dextrose 10% intravenous boluses or glucagon administration, start dextrose 10% infusion at 100 mL/hour and repeat blood glucose at 30 and 60 minutes. If blood glucose is GREATER THAN 70 mg/dL after 60 minutes, discontinue dextrose 10% infusion. Start: 07-10-2024 dextrose bolus 10% 125 mL Start: 07-10-2024 16 g (4 tablet ), Oral, PRN, Starting on Tue07/10/24 at 1102, Until Discontinued, Low blood sugar, If blood glucose is LESS THAN 70 mg/dL and patient is alert and tolerating oral. Give 4 tablets (16g) Repeat blood glucose in 15 minutes. If blood glucose is LESS THAN 70 mg/dL, repeat treatment and recheck blood glucose in 15 minutes x 2. If blood glucose remains LESS THAN 70 mg/dL, notify provider. lisinopril 5 mg oral tablet (1 source) Angiotensin Converting Enzyme Inhibitor Start: 07-06-2024 take 5 mg by mouth once daily 5 mg, Oral, DAILY, First dose on Tue07/06/24 at 2015, Until Discontinued, On hold since Tue07/10/2024 at 1409 until manually unheld Magnesium Aspart,Citrate,Ox [place] (2 sources) Start: 12-20-2023 take 400 mg by mouth once daily Magnesium Aspart,Citrate,Oxid e Active 400 MG PO Daily December 20, 2023 12:00am Magnesium Aspart,Citrate,Ox ash[place] 400 mg magnesium capsule (2 sources) Start: 12-20-2023 take 1 capsule by mouth once daily Magnesium Aspart,Citrate,Oxid e 400 mg magnesium capsule Active 400 MG PO Daily December 20, 2023 12:00am Start: 12-20-2023 take 1 capsule by [facility] once daily Magnesium Aspart,Citrate,Oxide 400 mg magnesium capsule Active 400 MG PO Daily December 19, 2023 11:00pm 50 ml magnesium sulfate 40 mg/ml injection (1 source) Start: 07-06-2024 2,000 mg, Intr aVENous, at 25 mL/hr, Administer over 2 Hours, PRN, Other, Magnesium Replacement, Starting on Tue07/06/24 at 1948, Mag Lab Replacement Action 1.4-1.6 mg/dL 2,000 mg Total Dose Given as 1,000 mg IVPB x 2 doses or 2,000 mg IVPB x 1 dose 1.0-1.3 mg/dL 4,000 mg Total Dose Given as 1,000 mg IVPB x 4 doses or 2,000 mg IVPB x 2 doses Less than 1.0 mg/dL CALL PHYSICIAN and give 4,000 mg Total Dose Given as 1,000 mg IVPB x 4 doses or 2,000 mg IVPB x 2 doses Infuse at 1,000 mg/hr Repeat Mag level 1 hour after final administration Protocol not for use in Patients with CrCl less than 30ml/min metFORMIN hydrochloride 500 mg oral tablet (20 [...] times daily for 90 days Sep, Active morphine (PF) injection 2 mg (1 source) Start: 07-10-2024 morphine (PF) injection 2 mg olmesartan medoxomil 20 mg oral tablet (19 sources) Angiotensin 2 Receptor Maria Esther Start: [...] a day for 30 days Nov, Active ondansetron (ZOFRAN-ODT) disintegrating tablet 4 mg (1 source) Start: 07-08-2024 ondansetron (ZOFRAN-ODT) disintegrating tablet 4 mg polyethylene glycol 3350 [id number] mg powder for oral solution (1 source) Osmotic Laxative Start: 07-08-2024 17 g, Oral, DAILY, First dose on 07/08/24 at 2014, Until Discontinued, Stir and dissolve one packet of powder (17 g) in any 4 to 8 ounces of beverage (cold, hot or room temperature) then drink, Post-op Potassium Chloride (1 source) Start: 07-06-2024 potassium chloride (KLOR-CON M) extended release tablet 40 mEq pravastatin sodium 20 mg oral tablet (20 sources) HMG-CoA Reductase Inhibitor Start: 03-28-2024 take 1 tablet by mouth once daily Pravastatin 20 mg tablet Active 0 .ROUTE .COMPLEX 90 March 28, 2024 8:01am TAKE 1 TABLET [...] Jul, Active predniSONE 20 mg oral tablet (4 sources) Start: 05-09-2023 predniSONE 20 MG 1 tablet Orally tid w/ food x 1 day then bid w/ food x 2 days then qd w/ food x 2 days for 5 days Apr, Active take 1 tablet by fredrick th once daily, then take 3 tablets by mouth once daily, then take 2 tablets by mouth once daily, then take 1 tablet by mouth once daily predniSONE (DELTASONE) 10 MG tablet Take 1 tablet by mouth daily Started on Tuesday, take 3 tabs daily x3days, 2 tabs daily x3 days, 1 tab daily x3days. Suspended rizatriptan 10 mg oral tablet (11 sources) [...] every two hours as needed for headache Maxalt-STRAIGHTENING PRESS OPERATOR 10 MG 1 tablet Orally PRN [...] Discontinued 4 MG PO Twice daily 180 February 29, 2024 5:11pm June 15, 2024 [...] 1:19pm take 1/2 tablet at QHS take 1 tablet by fredrick th twice daily as needed tiZANidine (ZANAFLEX) 4 MG tablet Take 1 tablet by mouth 2 times daily as needed Suspended take 0.5-1 tablets b y mouth once daily at bedtime tiZANidine HCl 4 MG TAKE 1/2 TO 1 TABLET BY MOUTH EVERY DAY AT BEDTIME for 90 Active Completed/Discontinued Medications Medication Drug Class(es) Dates Sig (Normalized) Sig (Original) 20 ml albumin human, care home 250 mg/ml injection (1 source) Human Serum Albumin Start: 07-11-2024 End: 07-11-2024 25 g, IntraVENous, ONCE, 1 dose, On Tue07/11/24 at 0015, Administer over 60 Minutes, at 100 mL/hr, Infusion rate depends on indication and clinical situation. In emergencies, may administer as rapidly as necessary to improve clinical condition. After initial volume replacement: 5%: Do not exceed 2 to 4 mL/minute in patients with normal plasma volume; 5 to 10 mL/minute in patients with hypoproteinemia 25%: Do not exceed 1 mL/minute in patients with normal plasma volume; 2 to 3 mL/minute in patients with hypoproteinemia amitriptyline hydrochloride 10 mg oral tablet (11 [...] Apr, Active atenolol 50 mg oral tablet (20 sources) beta-Adrenergic Maria Esther Start: 07-07-2024 50 mg, Oral, DAILY, First dose on 07/07/24 at 1000, Until Discontinued, Hold for HR less then 60, On hold since Tue07/10/2024 at 1409 until manually unheld Start: 03-28-2024 take 1 tablet by fredrick th once daily Atenolol 50 mg tablet Active [...] a day for 90 days Jul, Active bisacodyl 5 mg delayed release oral tablet (2 sources) Stimulant Laxative Start: 07-08-2024 take 5 mg by mouth once daily 5 mg, Oral, DAILY, First dose on [place] 07/08/24 at 2015, Until Discontinued, Do not crush or break., Post-op Start: 07-08-2024 take 10 mg rectal ro [place] once daily as needed for constipation 10 mg, Rectal, DAILY PRN, Starting on [place] 07/08/24 at 1950, Until Discontinued, Constipation, Second line therapy for constipation, After 24 hours, if no result from first line PRN therapy, give second line therapy in combination with first line therapy., Post-op ceFAZolin (ANCEF) 2,000 mg in sterile water 20 mL IV syringe (1 source) Start: 07-09-2024 End: 07-09-2024 2,000 mg, IntraVENous, EVERY 8 HOURS, 2 doses, First dose on Tue07/09/24 at 0045, Last dose on Tue07/09/24 at 0845, Antimicrobial Indications: Surgical Prophylaxis, Administer over 5 mins. Reconstitute 2 g vial with 20 mL Sterile Water. Withdraw entire contents., Post-op citalopram 20 mg oral tablet (20 sources) Serotonin Reuptake Inhibitor Start: 07-07-2024 take 20 mg by mouth once daily 20 mg, Oral, DAILY, First dose on [facility] 07/07/24 at 0900, Until Discontinued Start: 10-18-2023 End: 10-18-2023 take 1 tablet by mouth once daily Citalopram 40 mg tablet Active 40 MG PO Daily October 18, 2023 8:37am Start: 10-22-2022 take 1 tablet by fredrick th every twenty-four hours Citalopram Hydrobromide 40 MG 1 tablet at bedtime Orally Once a day for 90 days Sep, Active clonazePAM 0.5 mg oral tablet (20 sources) Benzodiazepine Start: 03-14-2025 take 1 mg by mouth once daily 1 mg, Oral, NIGHTLY, First dose on Tue07/06/24 at 2200, Until Discontinued Start: 12-20-2023 End: 12-27-2023 take 1.5 mg [...] bedtime Start: 06-01-2023 take 3 tablets by [facility] once daily at bedtime clonazePAM 0.5 MG TAKE 3 TABLETS BY MOUTH AT BEDTIME Orally Once a day for 90 days May, Active Start: 12-28-2022 take 3 tablets by [facility] once daily at bedtime clonazePAM 0.5 MG TAKE 3 TABLETS BY MOUTH AT BEDTIME Orally Once a day for 30 days Dec, Active Start: 09-30-2022 take 3 tablets by [facility] at bedtime clonazePAM 0.5 MG TAKE 3 TABLETS BY MOUTH AT BEDTIME for 30 days Sep, Active take 1 tablet by [facility] once daily as needed clonazePAM (KLONOPIN) 1 MG tablet Take 1 tablet by mouth nightly as needed (Restless leg). Suspended cloNIDine hydrochloride 0.1 mg oral tablet (17 sources) Central alpha-2 Adrenergic Agonist Start: 08-04-2022 take 1 tablet by mouth twice daily as needed cloNIDine HCl 0.1 MG 1 tablet Orally twice daily Jul, Not-Taking/PRN cyclobenzaprine hydrochloride 10 mg oral tablet (2 sources) Muscle Relaxant Start: 07-07-2024 End: 07-08-2024 take 10 mg by mouth three times daily as needed 10 mg, Oral, 3 TIMES DAILY PRN, Starting on 07/08/24 at 1950, Until Discontinued, Muscle spasms, Post-op docusate sodium 50 mg / sennosides, care home 8.6 mg oral tablet (1 source) Start: 07-08-2024 take 1 tablet by mouth twice daily 1 tablet, Oral, 2 TIMES DAILY, First dose on 07/08/24 at 2100, Until Discontinued, Post-op etodolac 500 mg oral tablet (13 sources) Nonsteroidal Anti-inflammatory Drug Start: 06-06-2024 take 1 tablet by mouth twice daily etodolac (LODINE) 500 MG tablet Take 1 tablet by mouth 2 times daily 06/06/2024 Suspended Start: 12-20-2023 End: 04-06-2024 take 1 tablet by mouth twice daily as needed for headache Etodolac 500 mg tablet Discontinued 500 MG PO Twice daily as needed for headache 60 30 January 09, 2024 1:30pm April 06, 2024 11:06am 2 ml fentaNYL 0.05 mg/ml injection (2 sources) Opioid Agonist Start: 07-08-2024 End: 07-08-2024 50 mcg, IntraVENous, EVERY 5 MIN PRN, 4 doses, Starting on 07/08/24 at 1902, Until 07/08/24 at 1949, Pain Severe (7-10), If oral and IV narcotics ordered, use oral first and only use IV if oral is ineffective or cannot take oral. Do Not give oral and IV within 1 hour of each other unless specifically ordered., PACU only gabapentin 100 mg oral capsule (2 sources) Anti-epileptic Agent Start: 07-07-2024 take 200 mg by mouth twice daily 200 mg, Oral, 2 TIMES DAILY, First dose on 07/07/24 at 1000, Until Discontinued Start: 06-30-2024 take 2 capsules by m outh twice daily gabapentin (NEURONTIN) 100 MG capsule Take 2 capsules by mouth 2 times daily. 06/30/2024 Suspended glipiZIDE 10 mg oral tablet (1 source) Sulfonylurea Start: 07-11-2024 10 mg, Oral, DAILY BEFORE BREAKFAST, First dose on 07/11/24 at 0700, Until Discontinued, Substituted for glimepiride (AMARYL). 1 ml hydrALAZINE hydrochloride 20 mg/ml injection (1 source) Arteriolar Vasodilator Start: 07-06-2024 10 mg, IntraVENous, EVERY 4 HOURS PRN, Starting on Tue07/06/24 at 1953, Until Discontinued, SBP > 160 insulin lispro 100 unt/ml injectable solution (2 sources) Insulin Analog Start: 07-06-2024 End: 07-10-2024 0-16 Units, SubCUTAneous, 4 TIMES DAILY BEFORE MEALS & NIGHTLY, First dose on Tue07/10/24 at 1130, Until Discontinued, High Dose Corrective Algorithm Glucose: Dose: 70-179 No Insulin 180-249 4 Units 250-299 8 Units 300-349 12 Units Over 349 16 Units and notify physician Administer as soon as possible within 60 minutes of last blood glucose check levothyroxine sodium 0.125 mg oral tablet (20 sources) l-Thyroxine Start: 07-07-2024 take 125 ug by mouth once daily 125 mcg, Oral, DAILY, First dose on Tue07/07/24 at 0700, Until Discontinued, Tube feeding (TF) interaction, obtain physician order to manage, recommend holding TF for 30 minutes before and after dose. Start: 03-28-2024 take 1 tablet by fredrick th once daily in the morning Levothyroxine 125 [...] stomach Orally Once a day Jul, Active LORazepam 0.5 mg oral tablet (1 source) Benzodiazepine Start: 07-08-2024 End: 07-08-2024 take 0.5 mg by mouth once 0.5 mg, Oral, ONCE, 1 dose, On Tue07/08/24 at 1500 Start: 07-08-2024 End: 07-08-2024 take 0.5 mg by mouth once 0.5 mg, Oral, ONCE, 1 dose, On Tue07/08/24 at 1500 magnesium hydroxide 80 mg/ml oral suspension (1 source) Start: 07-08-2024 take 30 mL by mouth once daily as needed for constipation 30 mL, Oral, DAILY PRN, Starting on Tue07/08/24 at 1950, Until Discontinued, Constipation, First line therapy for constipation., Post-op 1 ml morphine sulfate 2 mg/ml cartridge (1 source) Opioid Agonist Start: 07-06-2024 End: 07-08-2024 2 mg, IntraVENous, EVERY 4 HOURS PRN, Starting on Tue07/06/24 at 1954, Until Tue07/08/24 at 1811, Pain Severe (7-10), Allowed for higher pain score per patient request, If oral and IV narcotics ordered, use oral first and only use IV if oral is ineffective or cannot take oral. Do Not give oral and IV within 1 hour of each other unless specifically ordered. naloxegol 12.5 mg oral tablet (1 source) Opioid Antagonist Start: 07-10-2024 take 1 dose by mouth every hour at mealtime 12.5 mg, Oral, DAILY BEFORE BREAKFAST, First dose on Tue07/10/24 at 0700, Until Discontinued, Administer on an empty stomach at least 1 hour prior to or 2 hours after the first meal of the day. Avoid consumption of grapefruit or grapefruit juice during treatment. 1 ml naloxone hydrochloride 0.4 mg/ml injection (1 source) Opioid Antagonist Start: 07-08-2024 0.4 mg, IntraVENous, PRN, Starting on Tue07/08/24 at 1811, Until Discontinued, Opioid Reversal naratriptan 2.5 mg oral tablet (11 sources) Serotonin-1b and Serotonin-1d Receptor Agonist Start: 12-20-2023 End: 12-20-2023 take 1 tablet by mouth every four hours as needed for headache Naratriptan 2.5 mg tablet Discontinued 2.5 MG PO Every 4 hours as needed for migraine headache December 20, 2023 12:00am December 20, 2023 4:16pm Start: 01-05-2024 Naratriptan HC l 2.5 MG 1 tablet Orally Once a day PRN headache, may repeat after 2 hours for 30 days Apr, Active 1000 ml sodium chloride 9 mg /ml injection (8 sources) Start: 07-08-2024 Start: 07-06-2024 End: 07-10-2024 500 mL (6.3 mL/kg), IntraVEN ous, at 247.9 mL/hr, Administer over 121 Minutes, ONCE, On Tue07/10/24 at 1430, For 1 dose Start: 07-06-2024 End: 07-08-2024 5-40 mL, IntraVENous, EVERY 12 HOURS SCHEDULED (2 times per day), First dose on Tue07/08/24 at 2100, Until Discontinued, For Line Patency: Peripheral IV = 5 mL; Midline or Central Line = 10 mL/lumen. If following IV push medication, administer flush at same rate as the IV push. Flush volume is determined by type of infusion therapy being given. For non-viscous solutions use: Peripheral IV = 5 mL Midline or Central Line = 10 mL/lumen For viscous solutions (i.e. blood components, parenteral nutrition, contrast media, or after obtaining blood sample) use: Peripheral IV = 10 mL Midline or Central Line = 20 mL/lumen, Post-op [place] 85[address] mg powder for oral suspension (1 source) Start: 07-09-2024 End: 07-09-2024 10 g, Oral, ONCE, 1 dose, On Tue07/09/24 at 0800, Empty entire contents of the packet(s) into a glass with 3 tablespoons (45 mL) of water. Stir well and drink immediately; if powder remains in the glass, add water, stir and drink immediately; repeat until no powder remains. Administer other oral medications 2 hours before or 2 hours after dose. Start: 07-09-2024 End: 07-09-2024 10 g, Oral, ONCE, 1 dose, On Tue07/09/24 at 0800, Empty entire contents of the packet(s) into a glass with 3 tablespoons (45 mL) of water. Stir well and drink immediately; if powder remains in the glass, add water, stir and drink immediately; repeat until no powder remains. Administer other oral medications 2 hours before or 2 hours after dose. Problems Active Problems Problem Classification Problem Date [...] Spondylosis; intervertebral disc disorders; other back problems (16 sources) Cervicalgia; Translations: [Neck pain] Onset: 5 Episodic Sprains and strains (1 source) Strain [...] Test Name Value Interpretation Reference Range Facility ANION GAPon 07-11-2024 Anion gap [Moles/Vol] 10.0 mmol/L Normal 8.0-16.0 [facility] Comment on above: Result Comment: ANIO N GAP = Sodium -(Chloride + CO2) Performed By: #### P OCGL #### [facility] [address] [place] [id number] Anion Gapon 07-11-2024 Anion gap [Moles/Vol] 10 mmol/L 8.0 - 16.0 meq/L [facility] Comment on above: ANION GAP = Sodium - (Chloride + CO2) Performed at [facility] [address] [place] [id number] BASIC METABOL PANELon 2024 Calcium [Mass/Vol] 8.9 mg/dL Normal 8.8-10.2 [facility] Comment on above: Performed By: #### P OCGL #### [facility] [address] [place] [id number] CO2 [Moles/Vol] 22 mmol/L Normal 22-29 [facility] Comment on above: Performed By: #### P OCGL #### [facility] [address] [place] [id number] Creatinine [Mass/Vol] 1.0 mg/dL High 0.5-0.9 [facility] Comment on above: Performed By: #### P OCGL #### [facility] [address] [place] [id number] Glucose [Mass/Vol] 166 mg/dL High 74-109 [facility] Comment on above: Performed By: #### P OCGL #### [facility] [address] [place] [id number] Urea nitrogen [Mass/Vol] 16 mg/dL Normal 8-23 [facility] Comment on above: Performed By: #### P OCGL #### [facility] [address] [place] [address] 10762 Chloride [Moles/Vol] 103 mmol/L Normal 98-111 [facility] Comment on above: Performed By: #### P OCGL #### [address] [address] Potassium [Moles/Vol] 4.7 mmol/L Normal 3.5-5.2 [facility] Comment on above: Result Comment: Low level specimen hemolysis is present as indicated by the interference index on the Yamilet analyzer. ??The reported K+ level may be falsely increased. If clinically warranted, recollection of the specimen is suggested. Performed By: #### P OCGL #### [address] [address] Sodium [Moles/Vol] 135 mmol/L Normal 135-145 [facility] Comment on above: Performed By: #### P OCGL #### [address] [address] Basic metabolic 2000 panelon 07-11-2024 Calcium [Mass/Vol] 8.9 mg/dL 8.8 - 10. 2 mg/dL [facility] Comment on above: Performed at [facility] Lab [address] [place] [address] Chloride [Moles/Vol] 103 mmol/L 98 - 11 1 meq/L [facility] CO2 [Moles/Vol] 22 mmol/L 22 - 29 meq/L [facility] Creatinine [Mass/Vol] 1.0 mg/dL High 0.5 - 0.9 mg/dL [facility] Glucose [Mass/Vol] 166 mg/dL High 74 - 109 mg/dL [email or web address] Interpretation and review of laboratory results Abnormal [facility] Potassium [Moles/Vol] 4.7 mmol/L 3.5 - 5.2 meq/L [facility] Comment on above: Low level specimen h emolysis is present as indicated by the interference index on the Yamilet analyzer. The reported K+ level may be falsely increased. If clinically warranted, recollection of the specimen is suggested. Sodium [Moles/Vol] 135 mmol/L 135 - 145 meq/L [facility] Urea nitrogen [Mass/Vol] 16 mg/dL 8 - 23 mg/dL [facility] GFR, ESTIMATEDon 07-11-2024 GFR/1.73 sq M.predicted MDRD (S/P/Bld) [Vol rate/Area] 62 mL/min/{1.73_m2} Normal >60 [facility] Comment on above: Pediatric calculator link https://www.kidney.org/professionals/kdoqi/gfr_calculatorped Effective Jan 25, 2022 These [...] therapy that affects renal tubular secretion. Performed at [employer] [place] [address] Result Comment: Pedi atric calculator link https://www.kidney.org/professionals/kdoqi/gfr_calculatorped Effective Jan 25, 2022 These [...] affects renal tubular secretion. Performed By: #### P OCGL #### [facility] [address] [place] [address] GLUCOSE POCon 07-11-2024 Glucose [Mass/Vol] 177 mg/dL High 70-108 [facility] Comment on above: Performed at [facility] [address] [place] [address] Performed By: #### P OCGL #### [facility] [address] [place], [place] [id number] Glucose Auto test strip (Bld ) [Mass/Vol]on 07-11-2024 Interpretation and review of laboratory results Abnormal [facility] HGB,HCTon 07-11-2024 Hematocrit (Bld) [Volume fraction] 33.4 % Low 37.0-47.0 [facility] Comment on above: Performed at [facility] [address] [place] [address] Performed By: #### P OCGL #### [employer] [facility] [address] [place] [address] Hemoglobin (Bld) [Mass/Vol] 10.8 g/dL Low 12.0-16.0 [facility] Comment on above: Performed By: #### P OCGL #### [employer] [facility] [address] [place] [address] Hemoglobin and Hematocrit pa bhavna (Bld)on 07-11-2024 Interpretation and review of laboratory results Abnormal [facility] No Panel Informationon 07-11 [facility] ANION GAPon 07-10-2024 Anion gap [Moles/Vol] 8.0 mmol/L Normal 8.0-16.0 [facility] Comment on above: Result Comment: ANIO N GAP = Sodium -(Chloride + CO2) Performed By: #### P OCGL #### [facility] [place] [address] Anion Gapon 07-10-2024 Anion gap [Moles/Vol] 8 mmol/L 8.0 - 16.0 meq/L [facility] Comment on above: ANION GAP = Sodium - (Chloride + CO2) Performed at [facility] [address] [place] [address] BASIC METABOL PANELon 2024 Calcium [Mass/Vol] 8.8 mg/dL Normal 8.8-10.2 [facility] Comment on above: Performed By: #### P OCGL #### [facility] [address] [place] [address] CO2 [Moles/Vol] 26 mmol/L Normal 22-29 [facility] Comment on above: Performed By: #### P OCGL #### [employer] [facility] [address] [place] [address] Creatinine [Mass/Vol] 1.1 mg/dL High 0.5-0.9 [facility] Comment on above: Performed By: #### P OCGL #### [facility] [employer] [facility] [address] [place] [address] Glucose [Mass/Vol] 198 mg/dL High 74-109 [facility] Comment on above: Performed By: #### P OCGL #### [facility] [employer] [facility] [address] [place] [address] Urea nitrogen [Mass/Vol] 24 mg/dL High 8-23 [facility] Comment on above: Performed By: #### P OCGL #### [facility] [address] [place] [address] Chloride [Moles/Vol] 101 mmol/L Normal 98-111 [facility] Comment on above: Performed By: #### P OCGL #### [employer] [facility] [address] [place] [address] Potassium [Moles/Vol] 4.6 mmol/L Normal 3.5-5.2 [facility] Comment on above: Performed By: #### P OCGL #### [facility] [address] [place] [address] Sodium [Moles/Vol] 135 mmol/L Normal 135-145 [facility] Comment on above: Performed By: #### P OCGL #### [facility] [address] [place] [address]12 Basic metabolic 2000 panelon 07-10-2024 Calcium [Mass/Vol] 8.8 mg/dL 8.8 - 10. 2 mg/dL [facility] Comment on above: Performed at [facility] [address] [place] [address] Chloride [Moles/Vol] 101 mmol/L 98 - 11 1 meq/L [facility] CO2 [Moles/Vol] 26 mmol/L 22 - 29 meq/L [facility] Creatinine [Mass/Vol] 1.1 mg/dL High 0.5 - 0.9 mg/dL [facility] Glucose [Mass/Vol] 198 mg/dL High 74 - 109 mg/dL [facility] Potassium [Moles/Vol] 4.6 mmol/L 3.5 - 5.2 meq/L [facility] Sodium [Moles/Vol] 135 mmol/L 135 - 145 meq/L [facility] Urea nitrogen [Mass/Vol] 24 mg/dL High 8 - 23 mg/dL [facility] GFR, ESTIMATEDon 07-10-2024 GFR/1.73 sq M.predicted MDRD (S/P/Bld) [Vol rate/Area] 56 mL/min/{1.73_m2} Abnormal >60 [facility] Comment on above: Pediatric calculator link https://www.kidney.org/professionals/kdoqi/gfr_calculatorped Effective Jan 25, 2022 These [...] therapy that affects renal tubular secretion. Performed at [facility] [employer] [address] Result Comment: Pedi atric calculator link https://www.kidney.org/professionals/kdoqi/gfr_calculatorped Effective Jan 25, 2022 These [...] affects renal tubular secretion. Performed By: #### P OCGL #### [facility] [address] [place] [address] GLUCOSE POCon 07-10-2024 Glucose [Mass/Vol] 267 mg/dL High 70-108 [facility] Comment on above: Performed at [facility] [employer] [facility] [address] [place] [address] Performed By: #### P OCGL #### [facility] [address] [place] [address] Glucose [Mass/Vol] 154 mg/dL High 70-108 [facility] [employer] [facility] Comment on above: Performed at [facility] [address] [place] [address] Performed By: #### P OCGL #### [facility] [address] [place] [address] Glucose [Mass/Vol] 302 mg/dL High 70-108 [facility] Comment on above: Performed at [facility] [address] [place] [address] Performed By: #### P OCGL #### [facility] [address] [place] [address] Glucose [Mass/Vol] 205 mg/dL High 70-108 [facility] Comment on above: Performed at [facility] [address] [place] [address] Performed By: #### P OCGL #### [address] [address] Glucose Auto test strip (Bld ) [Mass/Vol]on 07-10-2024 Interpretation and review of laboratory results Abnormal [facility] Interpretation and review of laboratory results Abnormal [facility] Interpretation and review of laboratory results Abnormal [facility] Interpretation and review of laboratory results Abnormal [facility] HGB,HCTon 07-10-2024 Hematocrit (Bld) [Volume fraction] 32.2 % Low 37.0-47.0 [employer] [facility] Comment on above: Performed at [facility] [address] [place] [address] Performed By: #### P OCGL #### [facility] [address] [place] [address] Hemoglobin (Bld) [Mass/Vol] 10.0 g/dL Low 12.0-16.0 [facility] Comment on above: Performed By: #### P OCGL #### [facility] [address] [place] [address] Hemoglobin and Hematocrit pa bhavna (Bld)on 07-10-2024 Hemoglobin (Bld) [Mass/Vol] 10 g/dL Low [facility] Interpretation and review of laboratory results Abnormal [facility] Health [facility] No Panel Informationon 03-18 -2025 Interpretation and review of laboratory results Abnormal [facility] ANION GAPon 07-09-2024 Anion gap [Moles/Vol] 10.0 mmol/L Normal 8.0-16.0 [facility] Comment on above: Result Comment: ANIO N GAP = Sodium -(Chloride + CO2) Performed By: #### P OCGL #### [facility] [employer] [facility] [address] [place] [address] Anion Gapon 07-09-2024 Anion gap [Moles/Vol] 10 mmol/L 8.0 - 16.0 meq/L [facility] Comment on above: ANION GAP = Sodium - (Chloride + CO2) Performed at [facility] [address] [place] [address] BASIC METABOL PANELon 2024 Calcium [Mass/Vol] 8.3 mg/dL Low 8.8-10.2 [facility] Comment on above: Performed By: #### P OCGL #### [facility] [address] [place] [address] CO2 [Moles/Vol] 23 mmol/L Normal 22-29 [facility] Comment on above: Performed By: #### P OCGL #### [facility] [employer] [facility] [address] [place] [address] Creatinine [Mass/Vol] 1.1 mg/dL High 0.5-0.9 [facility] Comment on above: Performed By: #### P OCGL #### [facility] [employer] [facility] [address] [place] [address] Glucose [Mass/Vol] 197 mg/dL High 74-109 [facility] Comment on above: Performed By: #### P OCGL #### [facility] [employer] [facility] [address] [place] [address]66 Urea nitrogen [Mass/Vol] 21 mg/dL Normal 8-23 [facility] Comment on above: Performed By: #### P OCGL #### [facility] [employer] [facility] [address] [place] [address] Chloride [Moles/Vol] 103 mmol/L Normal 98-111 [facility] Comment on above: Performed By: #### P OCGL #### [facility] [employer] [facility] [address] [place] [address] Potassium [Moles/Vol] 5.8 mmol/L High 3.5-5.2 [facility] Comment on above: Performed By: #### P OCGL #### [facility] [address] [place] [address] Sodium [Moles/Vol] 136 mmol/L Normal 135-145 [facility] Comment on above: Performed By: #### P OCGL #### [facility] [address] [place] [address] 46949 Basic metabolic 2000 panelon 07-09-2024 Calcium [Mass/Vol] 8.3 mg/dL Low 8.8 - 10. 2 mg/dL [email or web address] Comment on above: Performed at [facility] [address] [place] [address] Chloride [Moles/Vol] 103 mmol/L 98 - 11 1 meq/L [employer] CO2 [Moles/Vol] 23 mmol/L 22 - 29 meq/L [employer] Creatinine [Mass/Vol] 1.1 mg/dL High 0.5 - 0.9 mg/dL [employer] Glucose [Mass/Vol] 197 mg/dL High 74 - 109 mg/dL [employer] Potassium [Moles/Vol] 5.8 mmol/L High 3.5 - 5.2 meq/L [facility] [email or web address] Sodium [Moles/Vol] 136 mmol/L 135 - 145 meq/L [employer] Urea nitrogen [Mass/Vol] 21 mg/dL 8 - 23 mg/dL [employer] GFR, ESTIMATEDon 07-09-2024 GFR/1.73 sq M.predicted MDRD (S/P/Bld) [Vol rate/Area] 56 mL/min/{1.73_m2} Abnormal >60 [employer] Comment on above: Pediatric calculator link https://www.kidney.org/professionals/kdoqi/gfr_calculatorped Effective Jan 25, 2022 These [...] therapy that affects renal tubular secretion. [place] [address] Result Comment: Soniya robertson calculator link https://www.kidney.org/professionals/kdoqi/gfr_calculatorped Effective Jan 25, 2022 These [...] affects renal tubular secretion. Performed By: #### P OCGL #### [place] [address] GLUCOSE POCon 07-09-2024 Glucose [Mass/Vol] 211 mg/dL High 70-108 [facility] Comment on above: Performed at [facility] [employer] [facility] [address] [place] [address] Performed By: #### P OCGL #### [employer] [address] [place] [address] Glucose [Mass/Vol] 212 mg/dL High 70-108 [facility] Comment on above: Performed at [facility] [employer] [facility] [address] [place] [address] Performed By: #### P OCGL #### [employer] [address] [place] [address] Glucose [Mass/Vol] 169 mg/dL High 70-108 [facility] Comment on above: Performed at [facility] [employer] [facility] [address] [place] [address] Performed By: #### P OCGL #### [employer] [address] [place] [address]33 Glucose [Mass/Vol] 229 mg/dL High 70-108 [facility] Comment on above: Performed at [facility] [employer] [facility] [address] [place] [address] Performed By: #### P OCGL #### [facility] [address] [place] [address] Glucose [Mass/Vol] 203 mg/dL High 70-108 [facility] Comment on above: Performed at [facility] [employer] [facility] [address] [place] [address] Performed By: #### P OCGL #### [facility] [place] [address] HGB,HCTon 07-09-2024 Hematocrit (Bld) [Volume fraction] 36.7 % Low 37.0-47.0 [facility] Comment on above: Performed at [facility] [employer] [facility] [address] [place] [address] Performed By: #### P OCGL #### [facility] [place] [address] Hemoglobin (Bld) [Mass/Vol] 11.9 g/dL Low 12.0-16.0 [facility] Comment on above: Performed By: #### P OCGL #### [facility] [place] [address] No Panel Informationon 07-09 Interpretation and review of laboratory results Abnormal [facility] POTASSIUMon 07-09-2024 Potassium [Moles/Vol] 4.7 mmol/L Normal 3.5-5.2 [facility] Comment on above: Performed By: #### K P #### [place] [address] Potassiumon 07-09-2024 Potassium [Moles/Vol] 4.7 mmol/L 3.5 - 5.2 meq/L [facility] Comment on above: Performed at [facility] [facility] [address] [place] [address] GLUCOSE POCon 07-08-2024 Glucose [Mass/Vol] 266 mg/dL High 70-108 [facility] Comment on above: Performed at [facility] [facility] [address] [place] [address] Performed By: #### P OCGL #### [facility] [employer] [place] [address] Glucose [Mass/Vol] 120 mg/dL High 70-108 [facility] Comment on above: Performed at [facility] [employer] [facility] [address] [place] [address] Performed By: #### P OCGL #### [facility] [employer] [facility] [address] [place] [address] Glucose [Mass/Vol] 105 mg/dL Normal 70-108 [facility] Comment on above: Performed at [facility] [employer] [facility] [address] [place] [address] Performed By: #### P OCGL #### [facility] [employer] [facility] [address] [place] [address] Glucose [Mass/Vol] 136 mg/dL High 70-108 [facility] Comment on above: Performed at [facility] [employer] [facility] [address] [place] [address] Performed By: #### P OCGL #### [facility] [employer] [facility] [address] [place] [address] Glucose Auto test strip (Bld ) [Mass/Vol]on 07-08-2024 Interpretation and review of laboratory results Abnormal [facility] Interpretation and review of laboratory results Abnormal [facility] Interpretation and review of laboratory results Abnormal [facility] XR LUMBAR SPINE 1 VWon 07-08 XR LUMBAR SPINE 1 VW MOBILE LATERAL LUMB AR SPINE: CLINICAL INFORMATION: surgery. L3-L5 decompression. L4-L5- [...] by: Boo Headley MD 07/08/24 Final result Normal [facility] XR Lumbar spine Single viewo n 07-08-2024 1. Evidence of posterior fusion at L4-L5. Please refer to operative report for further details. This report has been created using voice recognition software. It may contain minor errors which are inherent in voice recognition technology. Electronically signed by Dr. Jerrod Betts [facility] Sivakumar Betts MD - 07/08/2024 PROCEDURE: XR LUMBAR SPINE 1 VW CLINICAL [...] technology. Electronically signed by Dr. Jerrod Betts [facility] Radiology Study observation (narrative) [facility] Intraoperative appearance of the lumbar spine. This report has been created using voice recognition software. It may contain minor errors which are inherent in voice recognition technology. Electronically signed by Dr. Boo Headley [facility] MOBILE LATERAL LUMBA R SPINE: CLINICAL INFORMATION: surgery. L3-L5 decompression. L4-L5- fusion COMPARISON: No prior study. TECHNIQUE: A single lateral mobile view of the lumbar spine was obtained For localization purposes. FINDINGS: 2 spinal needles are present posteriorly directed at the L4 and L5 levels. [facility] Boo Headley MD - 07/08/2024 MOBILE LATERAL LUMBAR SPINE: CLINICAL INFORMATION: surgery. [...] technology. Electronically signed by Dr. Boo Headley [facility] Radiology Study observation (narrative) [facility] XR Lumbar spine Single viewO rdered By: Sivakumar Betts on 07-08-2024 [facility] Work Phone: XR Lumbar spine Single viewO rdered By: Boo Headley on 07-08-2024 [facility] Work Phone: ANION GAPon 07-07-2024 Anion gap [Moles/Vol] 14.0 mmol/L Normal 8.0-16.0 [facility] Comment on above: Result Comment: ANIO N GAP = Sodium -(Chloride + CO2) Performed By: #### B MP, EGFR1, CBCND, ANION #### [facility] [address] [place] [address] Anion Gapon 07-07-2024 Anion gap [Moles/Vol] 14 mmol/L 8.0 - 16.0 meq/L [facility] Comment on above: ANION GAP = Sodium - (Chloride + CO2) Performed at [facility] [address] [place] [address]15 BASIC METABOL PANELon 2024 CO2 [Moles/Vol] 21 mmol/L Low 22-29 [facility] Comment on above: Performed By: #### B MP, EGFR1, CBCND, ANION #### [facility] [address] [place] [address]1018 Creatinine [Mass/Vol] 1.0 mg/dL High 0.5-0.9 [facility] Comment on above: Performed By: #### B MP, EGFR1, CBCND, ANION #### [facility] [address] [place] [address]391 Glucose [Mass/Vol] 172 mg/dL High 74-109 [facility] Comment on above: Performed By: #### B MP, EGFR1, CBCND, ANION #### [facility] [address] [place] [address] 83397 Urea nitrogen [Mass/Vol] 33 mg/dL High 8-23 [facility] Comment on above: Performed By: #### B MP, EGFR1, CBCND, ANION #### [facility] [address] [place] [address] 57116 Calcium [Mass/Vol] 9.2 mg/dL Normal 8.8-10.2 [facility] Comment on above: Performed By: #### B MP, EGFR1, CBCND, ANION #### [facility] [address] [place] [address] Chloride [Moles/Vol] 103 mmol/L Normal 98-111 [facility] Comment on above: Performed By: #### B MP, EGFR1, CBCND, ANION #### [facility] [employer] [address] [place] [address] Potassium [Moles/Vol] 4.4 mmol/L Normal 3.5-5.2 [facility] Comment on above: Result Comment: Low level specimen hemolysis is present as indicated by the interference index on the [employer] analyzer. ??The reported K+ level may be falsely increased. If clinically warranted, recollection of the specimen is suggested. Performed By: #### B MP, EGFR1, CBCND, ANION #### [facility] [employer] [address] [place] [address] Sodium [Moles/Vol] 138 mmol/L Normal 135-145 [facility] Comment on above: Performed By: #### B MP, EGFR1, CBCND, ANION #### [facility] [employer] [address] [place] [address] Basic metabolic 2000 panelon 07-07-2024 Calcium [Mass/Vol] 9.2 mg/dL 8.8 - 10. 2 mg/dL [facility] Comment on above: Performed at [facility] Medical Lab [address] [place] [address] Chloride [Moles/Vol] 103 mmol/L 98 - 11 1 meq/L [employer] [facility] CO2 [Moles/Vol] 21 mmol/L Low 22 - 29 meq/L [facility] [facility] Creatinine [Mass/Vol] 1.0 mg/dL High 0.5 - 0.9 mg/dL [facility] Glucose [Mass/Vol] 172 mg/dL High 74 - 109 mg/dL [facility] Interpretation and review of laboratory results Abnormal [facility] Potassium [Moles/Vol] 4.4 mmol/L 3.5 - 5.2 meq/L [facility] Comment on above: Low level specimen h emolysis is present as indicated by the interference index on the Yamilet analyzer. The reported K+ level may be falsely increased. If clinically warranted, recollection of the specimen is suggested. Sodium [Moles/Vol] 138 mmol/L 135 - 145 meq/L [employer] Urea nitrogen [Mass/Vol] 33 mg/dL High 8 - 23 mg/dL [employer] [facility]Con [facility]-07-2024 Erythrocyte distribution width (RBC) [Entitic vol] 40.3 fL 35.0 - 45.0 fL [facility] Platelets (Bld) [#/Vol] 236 10*3/uL [facility] RBC (Bld) [#/Vol] 4.73 10*6/uL [facility] WBC (Bld) [#/Vol] 8.6 10*3/uL [facility] CBC NO DIFFERENTIALon 2024 Erythrocyte distribution width (RBC) [Ratio] 12.6 % Normal 11.5-14.5 [facility] Comment on above: Performed By: #### B MP, EGFR1, CBCND, ANION #### [facility] [employer] [facility] [employer] [address] [place] [address] Hematocrit (Bld) [Volume fraction] 41.6 % Normal 37.0-47.0 [facility] Comment on above: Performed By: #### B MP, EGFR1, CBCND, ANION #### [employer] [facility] [employer] [address] [place] [address] Hemoglobin (Bld) [Mass/Vol] 13.5 g/dL Normal 12.0-16.0 [facility] Comment on above: Performed By: #### B MP, EGFR1, CBCND, ANION #### [facility] [employer] [place] [address] MCH (RBC) [Entitic mass] 28.5 pg Normal 26.0-33.0 [facility] Comment on above: Performed By: #### B MP, EGFR1, CBCND, ANION #### [employer] [address] [place] [address] MCHC (RBC) [Mass/Vol] 32.5 g/dL Normal 32.2-35.5 [facility] Comment on above: Performed By: #### B MP, EGFR1, CBCND, ANION #### [employer] [address] [place] [address] MCV (RBC) [Entitic vol] 87.9 fL Normal 81.0-99.0 [facility] Comment on above: Performed By: #### B MP, EGFR1, CBCND, ANION #### [facility] [employer] [address] [address] PLATELET 236 thou/mm3 Normal 130-400 [facility] Comment on above: Performed By: #### B MP, EGFR1, CBCND, ANION #### [place] [address] Platelet mean volume (Bld) [Entitic vol] 9.6 fL Normal 9.4-12.4 [facility] Comment on above: Performed at [facility] [address] [place] [address] Performed By: #### B MP, EGFR1, CBCND, ANION #### [place] [address] RBC 4.73 mill/mm3 Normal 4.20-5.40 [facility] Comment on above: Performed By: #### B MP, EGFR1, CBCND, ANION #### [place] [address] RDW-SD 40.3 fL Normal 35.0-45.0 [facility] Comment on above: Performed By: #### B MP, EGFR1, CBCND, ANION #### [place] [address] WBC 8.6 thou/mm3 Normal 4.8-10.8 [facility] Comment on above: Performed By: #### B MP, EGFR1, CBCND, ANION #### [place] [address] GFR, ESTIMATEDon 07-07-2024 GFR/1.73 sq M.predicted MDRD (S/P/Bld) [Vol rate/Area] 62 mL/min/{1.73_m2} Normal >60 [facility] Comment on above: Pediatric calculator link https://www.kidney.org/professionals/kdoqi/gfr_calculatorped Effective Jan 25, 2022 These [...] therapy that affects renal tubular secretion. [place] [address] Result Comment: Soniya robertson calculator link https://www.kidney.org/professionals/kdoqi/gfr_calculatorped Effective Jan 25, 2022 These [...] affects renal tubular secretion. Performed By: #### B MP, EGFR1, CBCND, ANION #### [place] [address] GLUCOSE POCon 07-07-2024 Glucose [Mass/Vol] 271 mg/dL High 70-108 [facility] Comment on above: Performed at [facility] [address] [place] [address] Performed By: #### P OCGL #### [place] [address] Glucose [Mass/Vol] 188 mg/dL High 70-108 [facility] Comment on above: Performed at [facility] [address] [place] [address] Performed By: #### P OCGL #### [place] [address] Glucose [Mass/Vol] 174 mg/dL High 70-108 [facility] Comment on above: Performed at [facility] [employer] [facility] [address] [place] [address] Performed By: #### P OCGL #### [place] [address] Glucose [Mass/Vol] 76 mg/dL Normal 70-108 [facility] Comment on above: Performed at [facility] [employer] [facility] [address] [place] [address] Performed By: #### P OCGL #### [facility] [employer] [place] [id number] Glomerular Filtration Rate, Estimatedon 07-07-2024 [facility] [employer] Glucose Auto test strip (Bld ) [Mass/Vol]on 07-07-2024 Interpretation and review of laboratory results Abnormal [facility] Interpretation and review of laboratory results Abnormal [facility] Interpretation and review of laboratory results Abnormal [facility] No Panel Informationon 07-07 [facility] XR CHEST (2 VW)on 07-07-2024 XR CHEST (2 VW) Chest X-ray: 2 views . Indication: Pulmonary congestion. Comparison: None Findings: The [...] by: Kj Epps MD 07/07/24 Final result Normal [facility] XR Chest 2 Viewson Impression: No acute cardiopulmonary disease. This document has been electronically signed by: Kj Epps MD on 07/07/2024 02:22 AM [facility] Chest X-ray: 2 views . Indication: Pulmonary congestion. Comparison: None Findings: The lungs are well aerated. No focal consolidation, or pleural effusion. The cardiac silhouette is normal in size. Bony thorax is grossly intact. Bilateral shoulder arthroplasty. External metallic density versus surgical hardware projects on the lower cervical spine. [facility] Kj Epps MD - 025 Chest X-ray: 2 views. Indication: Pulmonary congestion. [...] Kj Epps MD on 07/07/2024 02:22 AM [facility] Radiology Study observation (narrative) [facility] XR Chest 2 ViewsOrdered By: Kj Epps on 07-07-2024 [facility] ANION GAPon 07-06-2024 Anion gap [Moles/Vol] 14.0 mmol/L Normal 8.0-16.0 [facility] Comment on above: Result Comment: ANIO N GAP = Sodium -(Chloride + CO2) Performed By: #### P OCGL #### [facility] [address] [place] [address] APTTon 07-06-2024 aPTT Coag (Bld) [Time] 29.5 s Normal 22.0-38.0 [facility] Comment on above: Result Comment: Ther apeutic Heparin Reference Range= 60-95 seconds (corresponds to 0.3 to 0.7 u/mL Anti-Xa factor activity) Performed By: #### P OCGL #### [place] [address] Anion Gapon 07-06-2024 Anion gap [Moles/Vol] 14 mmol/L 8.0 - 16.0 meq/L [facility] Comment on above: ANION GAP = Sodium - (Chloride + CO2) Performed at [facility] [address] [place] [address] CBC WITH DIFFERENTIALon 06-23 ABS BASOPHILS 0.0 thou/mm3 Normal 0.0-0.1 [facility] Comment on above: Performed By: #### P OCGL #### [facility] [place] [address] ABS EOSINOPHILS 0.0 thou/mm3 Normal 0.0-0.4 [facility] Comment on above: Performed By: #### P OCGL #### [facility] [address] [place] [address] ABS IMMATURE GRANS (IG) 0.05 thou/mm3 Normal 0.00-0.07 [facility] Comment on above: Performed By: #### P OCGL #### [facility] [address] [place] [address] ABS LYMPHOCYTES 2.8 thou/mm3 Normal 1.0-4.8 [facility] Comment on above: Performed By: #### P OCGL #### [address] [address] ABS MONOCYTES 0.8 thou/mm3 Normal 0.4-1.3 [facility] Comment on above: Performed By: #### P OCGL #### [address] [address] ABS NEUTROPHILS 7.9 thou/mm3 High 1.8-7.7 [facility] Comment on above: Performed By: #### P OCGL #### [address] [address] Basophils/100 WBC (Bld) 0.2 % Normal [facility] Comment on above: Performed By: #### P OCGL #### [address] [address] Eosinophils/100 WBC (Bld) 0.3 % Normal [facility] Comment on above: Performed By: #### P OCGL #### [address] [address] Erythrocyte distribution width (RBC) [Ratio] 12.5 % Normal 11.5-14.5 [facility] Comment on above: Performed By: #### P OCGL #### [address] [address] Hematocrit (Bld) [Volume fraction] 42.6 % Normal 37.0-47.0 [facility] Comment on above: Performed By: #### P OCGL #### [address] [address] Hemoglobin (Bld) [Mass/Vol] 13.8 g/dL Normal 12.0-16.0 [facility] Comment on above: Performed By: #### P OCGL #### [address] [address] IMMATURE GRANS (IG) 0.4 % Normal [facility] Comment on above: Performed By: #### P OCGL #### [address] [address] Lymphocytes/100 WBC (Bld) 24.0 % Normal [facility] Comment on above: Performed By: #### P OCGL #### [address] [address] MCH (RBC) [Entitic mass] 28.6 pg Normal 26.0-33.0 [facility] Comment on above: Performed By: #### P OCGL #### [address] [address] MCHC (RBC) [Mass/Vol] 32.4 g/dL Normal 32.2-35.5 [facility] Comment on above: Performed By: #### P OCGL #### [address] [address] MCV (RBC) [Entitic vol] 88.2 fL Normal 81.0-99.0 [facility] Comment on above: Performed By: #### P OCGL #### [address] [address] Monocytes/100 WBC (Bld) 6.8 % Normal [facility] Comment on above: Performed By: #### P OCGL #### [address] [address] Neutrophils/100 WBC (Bld) 68.3 % Normal [facility] Comment on above: Performed By: #### P OCGL #### [address] [address] NRBC 0 /100 wbc Normal [facility] Comment on above: Performed By: #### P OCGL #### [address] [address] PLATELET 274 thou/mm3 Normal 130-400 [facility] Comment on above: Performed By: #### P OCGL #### [facility] [employer] [address] [address] Platelet mean volume (Bld) [Entitic vol] 9.7 fL Normal 9.4-12.4 [facility] Comment on above: Performed By: #### P OCGL #### [address] [address] RBC 4.83 mill/mm3 Normal 4.20-5.40 [facility] Comment on above: Performed By: #### P OCGL #### [address] [address] RDW-SD 39.9 fL Normal 35.0-45.0 [facility] Comment on above: Performed By: #### P OCGL #### [address] [address] WBC 11.6 thou/mm3 High 4.8-10.8 [facility] Comment on above: Performed By: #### P OCGL #### [address] [address] CBC with Auto Differentialon 07-06-2024 Basophils (Bld) [#/Vol] 0 10*3/uL [facility] Eosinophils Absolute 0 [facility] Erythrocyte distribution width (RBC) [Entitic vol] 39.9 fL 35.0 - 45.0 fL [facility] Immature granulocytes (Bld) [#/Vol] 0.05 10*3/uL [facility] Immature granulocytes/100 WBC (Bld) 0.4 % [facility] Interpretation and review of laboratory results Abnormal [facility] Lymphocytes Absolute 2.8 [facility] Monocytes Absolute 0.8 [facility] Neutrophils Absolute 7.9 High [facility] Nucleated RBC/100 WBC (Bld) [Ratio] 0 % /100 wbc [facility] Comment on above: Performed at [facility] [address] [place] [address] Platelets (Bld) [#/Vol] 274 10*3/uL [facility] RBC (Bld) [#/Vol] 4.83 10*6/uL [facility] WBC (Bld) [#/Vol] 11.6 10*3/uL High [facility] COMP. METABOLIC PANELon 06-23 Albumin [Mass/Vol] 4.3 g/dL Normal 3.4-4.9 [facility] Comment on above: Performed By: #### P OCGL #### [address] [address] ALP [Catalytic activity/Vol] 65 U/L Normal 35-104 [facility] Comment on above: Performed By: #### P OCGL #### [facility] [employer] [facility] [address] [place] [address] ALT [Catalytic activity/Vol] 24 U/L Normal 10-35 [facility] Comment on above: Performed By: #### P OCGL #### [facility] [address] [place] [address] [place] [address] AST [Catalytic activity/Vol] 23 U/L Normal 10-35 [facility] Comment on above: Performed By: #### P OCGL #### [facility] [address] [place] [address] Bilirubin [Mass/Vol] 0.4 mg/dL Normal 0.3-1.2 [facility] Comment on above: Performed By: #### P OCGL #### [address] [address] Calcium [Mass/Vol] 9.6 mg/dL Normal 8.8-10.2 [facility] Comment on above: Performed By: #### P OCGL #### [facility] [address] [place] [address] CO2 [Moles/Vol] 26 mmol/L Normal 22-29 [facility] Comment on above: Performed By: #### P OCGL #### [facility] [address] [place] [address] [place] [address] Creatinine [Mass/Vol] 1.3 mg/dL High 0.5-0.9 [facility] Comment on above: Performed By: #### P OCGL #### [facility] [employer] [facility] [address] [place] [address] [place] [address] Glucose [Mass/Vol] 259 mg/dL High 74-109 [facility] Comment on above: Performed By: #### P OCGL #### [facility] [address] [place] [address] Protein [Mass/Vol] 7.2 g/dL Normal 6.4-8.3 [facility] Comment on above: Performed By: #### P OCGL #### [facility] [employer] [facility] [address] [place] [address] [place] [address] Urea nitrogen [Mass/Vol] 43 mg/dL High 8-23 [facility] Comment on above: Performed By: #### P OCGL #### [facility] [employer] [address] [address] Chloride [Moles/Vol] 96 mmol/L Low 98-111 [facility] Comment on above: Performed By: #### P OCGL #### [address] [address] POTASSIUM WITH REFLEX MG 5.0 meq/L Normal 3.5-5.2 [facility] Comment on above: Result Comment: Low level specimen hemolysis is present as indicated by the interference index on the Yamilet analyzer. ??The reported K+ level may be falsely increased. If clinically warranted, recollection of the specimen is suggested. Performed By: #### P OCGL #### [address] [address] Sodium [Moles/Vol] 136 mmol/L Normal 135-145 [facility] Comment on above: Performed By: #### P OCGL #### [address] [address] Comprehensive metabolic 2000 panelon 07-06-2024 Albumin BCG dye [Mass/Vol] 4.3 g/dL 3.4 - 4.9 g/dL [facility] ALP [Catalytic activity/Vol] 65 U/L 35 - 104 U/L [facility] ALT No additional P-5'-P [Catalytic activity/Vol] 24 U/L 10 - 35 U/L [facility] Comment on above: Performed at [facility] [address] [place] [address] AST [Catalytic activity/Vol] 23 U/L 10 - 35 U/L [facility] Bilirubin [Mass/Vol] 0.4 mg/dL 0.3 - 1 .2 mg/dL [facility] Calcium [Mass/Vol] 9.6 mg/dL 8.8 - 10. 2 mg/dL [facility] Chloride [Moles/Vol] 96 mmol/L Low 98 - 11 1 meq/L [facility] [employer] CO2 [Moles/Vol] 26 mmol/L 22 - 29 meq/L [employer] Creatinine [Mass/Vol] 1.3 mg/dL High 0.5 - 0.9 mg/dL [employer] Glucose [Mass/Vol] 259 mg/dL High 74 - 109 mg/dL [employer] Potassium [Moles/Vol] 5.0 mmol/L 3.5 - 5.2 meq/L [employer] Comment on above: Low level specimen h emolysis is present as indicated by the interference index on the [employer] analyzer. The reported K+ level may be falsely increased. If clinically warranted, recollection of the specimen is suggested. Protein [Mass/Vol] 7.2 g/dL 6.4 - 8.3 g/dL [employer] Sodium [Moles/Vol] 136 mmol/L 135 - 145 meq/L [employer] Urea nitrogen [Mass/Vol] 43 mg/dL High 8 - 23 mg/dL [employer] EKG 12 leadOrdered By: Kp Rodriges on 07-06-2024 Atrial Rate 68 BPM [employer] Work Phone: P [place] 58 degrees [employer] Work Phone: P-R Interval 146 ms [employer] Work Phone: Q-T Interval 422 ms [employer] Work Phone: QRS Duration 82 ms [employer] Work Phone: QTc Calculation (Bazett) 448 ms [employer] Work Phone: R [place] 67 degrees [employer] Work Phone: T [place] 66 degrees [employer] Work Phone: Ventricular Rate 68 BPM [employer] Work Phone: [employer] Work Phone: EKG 12 leadon 07-06-2024 Normal sinus rhythm Possible Left atrial enlargement ST & T wave abnormality, consider anterior ischemia Abnormal ECG No previous ECGs available Clinical correlation is indicated Confirmed by Kp Rodriges ([id number]) on 07/06/2024 11:10:52 PM [facility] Kp Us MD - 07/06/2024 Normal sinus rhythm Possible Left atrial enlargement ST & T wave abnormality, consider anterior ischemia Abnormal ECG No previous ECGs available Clinical correlation is indicated Confirmed by Kp Rodriges ([id number]) on 07/06/2024 11:10:52 PM [facility] EKG 12-LEADon 07-06-2024 EKG 12-LEAD 68 [phone] Normal sinus rhythm Possible Left atrial enlargement ST & T wave abnormality, consider anterior ischemia Abnormal ECG No previous ECGs available Clinical correlation is indicated Confirmed by Kp Rodriges ([id number]) on 07/06/2024 11:10:52 PM [email or web address]&Date= 06-07-2024&Time=20%3a11 %3a37%3a00&TestType=ECG &Site=3&OutputType=PDF& Ext=PDF Normal [facility] GFR, ESTIMATEDon 07-06-2024 GFR/1.73 sq M.predicted MDRD (S/P/Bld) [Vol rate/Area] 46 mL/min/{1.73_m2} Abnormal >60 [facility] Comment on above: Pediatric calculator link https://www.kidney.org/professionals/kdoqi/gfr_calculatorped Effective Jan 25, 2022 These [...] therapy that affects renal tubular secretion. Performed at [facility] [address] [place] [address] Result Comment: Soniya atric calculator link https://www.kidney.org/professionals/kdoqi/gfr_calculatorped Effective Jan 25, 2022 These [...] affects renal tubular secretion. Performed By: #### P OCGL #### [employer] [address] [place] [address] GLUCOSE POCon 07-06-2024 Glucose [Mass/Vol] 280 mg/dL High 70-108 [facility] Comment on above: Performed at [facility] [employer] [facility] [address] [place] [address] Performed By: #### P OCGL #### [employer] [address] [place] [address] Glucose Auto test strip (Bld ) [Mass/Vol]on 07-06-2024 Interpretation and review of laboratory results Abnormal [facility] INR Coag (PPP) [Relative jackie e]on 07-06-2024 [facility] No Panel Informationon 07-06 Interpretation and review of laboratory results Abnormal [facility] PROTHOMBIN TIMEon 07-06-2024 INR Coag (Bld) [Relative time] 1.02 {INR} Normal 0.85-1.13 [facility] Comment on above: Result Comment: ---- -----INDICATION INR Reference Range DVT, PE, AF, AMI, tissue heart valve 2.0 to 3.0 Mechanical prosthetic valves 2.5 to 3.5 Performed By: #### P OCGL #### [employer] [address] [place] [address] Protime-INRon 07-06-2024 INR Coag (PPP) [Relative time] 1.02 {INR} 0.85 - 1.13 [facility] Comment on above: ---------INDICATION- INR Reference Range DVT, PE, AF, AMI, tissue heart valve 2.0 to 3.0 Mechanical prosthetic valves 2.5 to 3.5 Performed at [facility] [address] [place] [address] aPTT Coag (Bld) [Time]on aPTT Coag (PPP) [Time] 29.5 s [facility] Comment on above: Therapeutic Heparin Reference Range= 60-95 seconds (corresponds to 0.3 to 0.7 u/mL Anti-Xa factor activity) Performed at [facility] [address] [place] [address] [facility] Estimated glomerular filtrat ion rate (GFR) non- Americanon 06-27-2024 GFR/1.73 sq M.predicted among non-blacks MDRD (S/P/Bld) [Vol rate/Area] Estimated glomerular filtration rate (GFR) non- Low >=60 mL/min/1.73m 2 [facility] - Chemistry and C hemistry - challengeon 06-27-2024 Calcium [Mass/Vol] 9.8 mg/dL 8.5-10.1 [facility] Chloride [Moles/Vol] 101 mmol/L 98-107 [facility] CO2 [Moles/Vol] 28.6 mmol/L 21.0-32.0 [facility] Creatinine [Mass/Vol] 1.41 mg/dL High 0.55-1.02 [facility] GFR/1.73 sq M.predicted MDRD (S/P/Bld) [Vol rate/Area] 45 mL/min/{1.73_m2} Low >=60 mL/min/1.73m 2 [facility] Glucose [Mass/Vol] 66 mg/dL Low 74-106 [facility] Potassium [Moles/Vol] 5.1 mmol/L 3.5-5.1 [facility] Sodium [Moles/Vol] 139 mmol/L 136-145 [facility] Urea nitrogen [Mass/Vol] 29.0 mg/dL High 7.0-18.0 [facility] Urea nitrogen/Creatinine [Mass ratio] 20.6 mg/mg [facility] Bilirubin Ql (U) LARGE Abnormal NEGATIVE [facility] Glucose (U) [Mass/Vol] Negative NEGATIVE [facility] Ketones Ql (U) TRACE mg/dL Abnormal NEGATIVE [facility] pH (U) 5.5 [pH] 5.0-9.0 [facility] Specific gravity (U) [Rel density] 1.025 1.005-1.025 [facility] Urobilinogen Qn (U) 0.2 {Nela'U}/dL 0.2-1.0 [facility] - Specimen inform ationon 06-27-2024 Appearance (U) CLEAR CLEAR [facility] Color (U) YELLOW YELLOW [facility] Laboratory - Urinalysison Leukocyte esterase Test strip Ql (U) Negative NEGATIVE [facility] Nitrite Ql (U) Negative NEGATIVE [facility] Protein Ql (U) Negative NEG/TRACE [facility] No Panel Informationon 06-27 Urine Microscopic Review NO [facility] Urine Occult Blood Negative NEGATIVE [facility] Serum or plasma anion gap de terminationon 06-27-2024 Anion gap [Moles/Vol] Serum or plasma anion gap determination [facility] No Panel Informationon 06-01 Miscellaneous Test COMMENT . [facility] Comment on above: Test Ordered: [id number] Aerobic Cult, Extended IncubAerobic Cult, Extended Incub Note: Final report Reference Range: .Result 1 Comment [...] RRifampin STetracycline STrimethoprim/Sulfa SVancomycin SPerformed at: - [facility] [place], [place] [id number] Director: Noam Haskins PhD, Phone: [phone] Basophils Auto (Bld) [#/Vol] on 05-31-2024 Basophils (Bld) [#/Vol] Automated basophil count 0.0-0.1 [facility] Basophils/100 WBC Auto (Bld) on 05-31-2024 Basophils/100 WBC (Bld) Automated basophil % 0.2-2.0 [facility] Eosinophils/100 WBC Auto (Bl d)on 05-31-2024 Eosinophils/100 WBC (Bld) Automated eosinophil % 0.9-7.0 [facility] Erythrocyte distribution wid th Auto (RBC) [Ratio]on 05-31-2024 Erythrocyte distribution width (RBC) [Ratio] Erythrocyte distribution width [Ratio] by Automated count 11.0-15.0 [facility] Hematocrit Auto (Bld) [Volum e fraction]on 05-31-2024 Hematocrit (Bld) [Volume fraction] Hematocrit [Volume Fraction] of Blood by Automated count 36.0-48.0 [facility] Hemoglobin [Mass/volume] in Bloodon 05-31-2024 Hemoglobin (Bld) [Mass/Vol] Hemoglobin [Mass/volume] in Blood 12.0-16.0 [facility] Laboratory - Hematology and Cell countson 05-31-2024 ESR (Bld) [Velocity] 7 mm/h <=30 [facility] Immature granulocytes/100 WBC (Bld) 0.2 % 0.0-0.5 [facility] Leukocytes [#/volume] correc chip for nucleated erythrocytes in Blood by Automated counon 05-31-2024 WBC corrected for nucl RBC Auto (Bld) [#/Vol] Leukocytes [#/volume] corrected for nucleated erythrocytes in Blood by Automated coun 4.0-11.0 [facility] Lymphocytes Auto (Bld) [#/Vo l]on 05-31-2024 Lymphocytes (Bld) [#/Vol] Lymphocytes [#/volume] in Blood by Automated count 1.2-3.8 [facility] Lymphocytes/100 WBC Auto (Bl d)on 05-31-2024 Lymphocytes/100 WBC (Bld) Lymphocytes/100 leukocytes in Blood by Automated count 20.5-60.0 [facility] MCH Auto (RBC) [Entitic mass ]on 05-31-2024 MCH (RBC) [Entitic mass] MCH [Entitic mass] by Automated count 26.7-34.0 [facility] MCHC Auto (RBC) [Mass/Vol]on 05-31-2024 MCHC (RBC) [Mass/Vol] MCHC [Mass/volume] by Automated count 29.9-35.2 [facility] MCV Auto (RBC) [Entitic vol] on 05-31-2024 MCV (RBC) [Entitic vol] MCV [Entitic volume] by Automated count 81.0-99.0 [facility] Monocytes Auto (Bld) [#/Vol] on 05-31-2024 Monocytes (Bld) [#/Vol] Automated blood monocyte count 0.3-0.8 [facility] Monocytes/100 WBC Auto (Bld) on 05-31-2024 Monocytes/100 WBC (Bld) Automated monocyte % 1.7-12.0 [facility] Neutrophils Auto (Bld) [#/Vo l]on 05-31-2024 Neutrophils (Bld) [#/Vol] Neutrophils [#/volume] in Blood by Automated count 1.4-6.5 [facility] Neutrophils/100 WBC Auto (Bl d)on 05-31-2024 Neutrophils/100 WBC (Bld) Automated neutrophil % 43.0-75.0 [facility] No Panel Informationon 05-31 C-Reactive Protein, Quantitative <0.50 mg/dL <=0.50 [facility] Eosinophils # (Auto) 0.1 10 3/uL 0.0-0.7 [facility] Immature Granulocyte # (Auto) 0.01 10 3/uL 0.00-0.03 [facility] Platelet mean volume Auto (B ld) [Entitic vol]on 05-31-2024 Platelet mean volume (Bld) [Entitic vol] Platelet mean volume [Entitic volume] in Blood by Automated count Low 9.5-13.5 [facility] Platelets Auto (Bld) [#/Vol] on 05-31-2024 Platelets (Bld) [#/Vol] Platelets [#/volume] in Blood by Automated count 150-450 [facility] RBC Auto (Bld) [#/Vol]on RBC (Bld) [#/Vol] Erythrocytes [#/volu me] in Blood by Automated count 4.20-5.40 [facility] Basophils Auto (Bld) [#/Vol] on 12-27-2023 Basophils (Bld) [#/Vol] 0.1 10 3/uL 0.0-0.1 [facility] Basophils/100 WBC Auto (Bld) on 12-27-2023 Basophils/100 WBC (Bld) 1.0 % 0.2-2.0 [facility] Cholesterol in LDL Calc [Mas s/Vol]on 12-27-2023 Cholesterol in LDL [Mass/Vol] 63.0 mg/dL [facility] Comment on above: <100 mg/dl [id number] 0-129 mg/dl NEAR OR ABOVE [id number] mg/dl BORDERLINE [id number] mg/dl HIGH>190 mg/dl VERY HIGH Cholesterol in VLDL Calc [Ma ss/Vol]on 12-27-2023 Cholesterol in VLDL [Mass/Vol] 45.8 mg/dL [facility] Eosinophils/100 WBC Auto (Bl d)on 12-27-2023 Eosinophils/100 WBC (Bld) 8.3 % High 0.9-7.0 [facility] Erythrocyte distribution wid th Auto (RBC) [Ratio]on 12-27-2023 Erythrocyte distribution width (RBC) [Ratio] 11.9 % 11.0-15.0 [facility] Estimated glomerular filtrat ion rate (GFR) non- Americanon 12-27-2023 GFR/1.73 sq M.predicted among non-blacks MDRD (S/P/Bld) [Vol rate/Area] 47 mL/min/{1.73_m2} Low >=60 [facility] Globulin Calc (S) [Mass/Vol] on 12-27-2023 Globulin (S) [Mass/Vol] 3.2 g/dL [facility] Glucose mean value [Mass/vol ume] in Blood Estimated from glycated hemoglobinon 12-27-2023 Average glucose Estimated from glycated hemoglobin (Bld) [Mass/Vol] 143 mg/dL [facility] Hematocrit Auto (Bld) [Volum e fraction]on 12-27-2023 Hematocrit (Bld) [Volume fraction] 39.7 % 36.0-48.0 [facility] Hemoglobin [Mass/volume] in Bloodon 12-27-2023 Hemoglobin (Bld) [Mass/Vol] 12.9 g/dL 12.0-16.0 [facility] Laboratory - Chemistry and C hemistry - challengeon 12-27-2023 Albumin [Mass/Vol] 3.7 g/dL 3.4-5.0 [facility] ALP [Catalytic activity/Vol] 61 U/L 46-116 [facility] ALT [Catalytic activity/Vol] 36 U/L 14-59 [facility] AST [Catalytic activity/Vol] 24 U/L 15-37 [facility] Bilirubin [Mass/Vol] 0.6 mg/dL 0.2-1.0 [facility] Calcium [Mass/Vol] 9.2 mg/dL 8.5-10.1 [facility] Chloride [Moles/Vol] 101 mmol/L 98-107 [facility] Cholesterol [Mass/Vol] 146 mg/dL <=200 [facility] Cholesterol in HDL [Mass/Vol] 38 mg/dL Low 40-60 [facility] Comment on above: > or =60 mg/dl - LOW CARDIOVASCULAR RISK<40 mg/dl - HIGH CARDIOVASCULAR RISK CO2 [Moles/Vol] 26.8 mmol/L 21.0-32.0 [facility] Creatinine [Mass/Vol] 1.17 mg/dL High 0.55-1.02 [facility] GFR/1.73 sq M.predicted MDRD (S/P/Bld) [Vol rate/Area] 56 mL/min/{1.73_m2} Low >=60 [facility] Glucose [Mass/Vol] 138 mg/dL High 74-106 [facility] Potassium [Moles/Vol] 4.5 mmol/L 3.5-5.1 [facility] Protein [Mass/Vol] 6.9 g/dL 6.4-8.2 [facility] Sodium [Moles/Vol] 138 mmol/L 136-145 [facility] Triglyceride [Mass/Vol] 229 mg/dL High <=150 [facility] TSH Qn 0.834 m[IU]/L 0.358-3.740 [facility] Urea nitrogen [Mass/Vol] 23.0 mg/dL High 7.0-18.0 [facility] Urea nitrogen/Creatinine [Mass ratio] 19.7 mg/mg [facility] Laboratory - Hematology and Cell countson 12-27-2023 HbA1c (Bld) [Mass fraction] 6.6 % High 4.5-6.2 [facility] Comment on above: ADA RECOMMENDED LIMI T 4.0 - 6.0ADA THERAPEUTIC TARGET < 7.0ACTION SUGGESTED> 7.0 Immature granulocytes/100 WBC (Bld) 0.4 % 0.0-0.5 [facility] Leukocytes [#/volume] correc chip for nucleated erythrocytes in Blood by Automated counon 12-27-2023 WBC corrected for nucl RBC Auto (Bld) [#/Vol] 5.2 10 3/uL 4.0-11.0 [facility] Lymphocytes Auto (Bld) [#/Vo l]on 12-27-2023 Lymphocytes (Bld) [#/Vol] 2.2 10 3/uL 1.2-3.8 [facility] Lymphocytes/100 WBC Auto (Bl d)on 12-27-2023 Lymphocytes/100 WBC (Bld) 42.1 % 20.5-60.0 [facility] MCH Auto (RBC) [Entitic mass ]on 12-27-2023 MCH (RBC) [Entitic mass] 28.5 pg 26.7-34.0 [facility] MCHC Auto (RBC) [Mass/Vol]on 12-27-2023 MCHC (RBC) [Mass/Vol] 32.5 g/dL 29.9-35.2 [facility] MCV Auto (RBC) [Entitic vol] on 12-27-2023 MCV (RBC) [Entitic vol] 87.8 fL 81.0-99.0 [facility] Monocytes Auto (Bld) [#/Vol] on 12-27-2023 Monocytes (Bld) [#/Vol] 0.3 10 3/uL 0.3-0.8 [facility] Monocytes/100 WBC Auto (Bld) on 12-27-2023 Monocytes/100 WBC (Bld) 6.4 % 1.7-12.0 [facility] Neutrophils Auto (Bld) [#/Vo l]on 12-27-2023 Neutrophils (Bld) [#/Vol] 2.2 10 3/uL 1.4-6.5 [facility] Neutrophils/100 WBC Auto (Bl d)on 12-27-2023 Neutrophils/100 WBC (Bld) 41.8 % Low 43.0-75.0 [facility] No Panel Informationon 12-26 Eosinophils # (Auto) 0.4 10 3/uL 0.0-0.7 [facility] Immature Granulocyte # (Auto) 0.02 10 3/uL 0.00-0.03 [facility] Platelet mean volume Auto (B ld) [Entitic vol]on 12-27-2023 Platelet mean volume (Bld) [Entitic vol] 9.6 fL 9.5-13.5 [facility] Platelets Auto (Bld) [#/Vol] on 12-27-2023 Platelets (Bld) [#/Vol] 190 10 3/uL 150-450 [facility] RBC Auto (Bld) [#/Vol]on RBC (Bld) [#/Vol] 4.52 10 6/uL 4.20-5.40 [facility] Serum or plasma albumin/glob ulin mass ratioon 12-27-2023 Albumin/Globulin [Mass ratio] 1.2 {ratio} [facility] Serum or plasma anion gap de terminationon 12-27-2023 Anion gap [Moles/Vol] 14.7 mmol/L [facility] Serum or plasma total choles terol/high density lipoprotein (HDL) cholesterol mass desiree 12-27-2023 Cholesterol.total/Ch olesterol in HDL [Mass ratio] 3.8 {ratio} [facility] Comment on above: 3.3 - 4.4 [...] Tiny Presley's cyst. Electronically authenticated by: BERNY QUISPE Date: 2022-08-24 07:19 Normal [facility] CBC AUTO DIFFon 03-30-2022 BASO # 0.0 103/ul Normal 0.0-0.1 [facility] Comment on above: Performed By: #### C BC #### [facility] [address] [place], [place] [address] Dr. Rc Foster Basophils/100 WBC (Bld) 0.4 % Normal 0.2-2.0 [facility] Comment on above: Performed By: #### C BC #### [facility] [address] [place], [place] [address] Dr. Rc Foster EO # 0.3 103/ul Normal 0.0-0.7 [facility] Comment on above: Performed By: #### C BC #### [facility] [address] [place] [address] Dr. Rc Foster Eosinophils/100 WBC (Bld) 4.9 % Normal 0.9-7.0 [facility] Comment on above: Performed By: #### C BC #### [facility] [address] [place] [address] Dr. Rc Foster Erythrocyte distribution width (RBC) [Ratio] 12.2 % Normal 11.0-15.0 [facility] Comment on above: Performed By: #### C BC #### [facility] [address] [place] [address] Dr. Rc Foster Hematocrit (Bld) [Volume fraction] 39.8 % Normal 36.0-48.0 [facility] Comment on above: Performed By: #### C BC #### [facility] [address] [place] [address] Dr. Rc Foster Hemoglobin (Bld) [Mass/Vol] 13.1 g/dL Normal 12.0-16.0 [facility] Comment on above: Performed By: #### C BC #### [facility] [address] [place] [address] Dr. Rc Foster IG # 0.02 10e3/ul Normal 0.00-0.03 [facility] Comment on above: Performed By: #### C BC #### [facility] [address] [place] [address] Dr. Rc Foster IG % 0.4 % Normal 0.0-0.5 [facility] Comment on above: Performed By: #### C BC #### [facility] [address] [place] [address] Dr. Rc Foster LYMPH # 2.1 103/ul Normal 1.2-3.8 [facility] Comment on above: Performed By: #### C BC #### [facility] [address] [place] [address] Dr. Rc Foster Lymphocytes/100 WBC (Bld) 37.1 % Normal 20.5-60.0 [facility] Comment on above: Performed By: #### C BC #### [facility] [address] [place] [address] Dr. Rc Foster MANUAL DIFF REQ NO Normal [facility] Comment on above: Performed By: #### C BC #### [facility] [address] [place] [address] Dr. Rc Foster MCH (RBC) [Entitic mass] 28.7 pg Normal 26.7-34.0 [facility] Comment on above: Performed By: #### C BC #### [facility] [address] [place] [address] Dr. Rc Foster MCHC (RBC) [Mass/Vol] 32.9 g/dL Normal 29.9-35.2 [facility] Comment on above: Performed By: #### C BC #### [facility] [address] [place] [address] Dr. Rc Foster MCV (RBC) [Entitic vol] 87.1 fL Normal 81.0-99.0 [facility] Comment on above: Performed By: #### C BC #### [facility] [address] [place] [address] Dr. Rc Foster MONO # 0.4 103/ul Normal 0.3-0.8 [facility] Comment on above: Performed By: #### C BC #### [facility] [address] [place] [address] Dr. Rc Foster Monocytes/100 WBC (Bld) 6.7 % Normal 1.7-12.0 [facility] Comment on above: Performed By: #### C BC #### [facility] [address] [place] [address] Dr. Rc Foster NEUT # 2.9 103/ul Normal 1.4-6.5 [facility] Comment on above: Performed By: #### C BC #### [facility] [address] [place] [address] Dr. Rc Foster Neutrophils/100 WBC (Bld) 50.5 % Normal 43.0-75.0 [facility] Comment on above: Performed By: #### C BC #### [facility] [address] [place] [address] Dr. Rc Foster Platelet mean volume (Bld) [Entitic vol] 9.7 fL Normal 9.5-13.5 [facility] Comment on above: Performed By: #### C BC #### [facility] [address] [place] [address] Dr. Rc Foster PLT 189 103/ul Normal 150-450 [facility] Comment on above: Performed By: #### C BC #### [facility] [address] [place] [address] Dr. Rc Foster RBC 4.57 106/ul Normal 4.20-5.40 [facility] Comment on above: Performed By: #### C BC #### [facility] [address] [place] [address] Dr. Rc Foster WBC 5.7 103/ul Normal 4.0-11.0 [facility] Comment on above: Performed By: #### C BC #### [facility] [address] [place] [address] Dr. Rc Foster GLYCOHEMOGLOBIN A1Con 2021 ADA RECOMMENDATION SEE BELOW Normal [facility] Comment on above: Result Comment: ADA RECOMMENDED LIMIT 4.0 - 6.0 ADA THERAPEUTIC TARGET < 7.0 ACTION SUGGESTED > 7.0 Performed By: #### A 1C #### [facility] [address] [place] [address] Dr. Rc Foster Glucose [Mass/Vol] 143 mg/dL Normal [facility] Comment on above: Performed By: #### A 1C #### [facility] [address] [place] [address] Dr. Rc Foster HbA1c (Bld) [Mass fraction] 6.6 % Critically high 4.5-6.2 [facility] Comment on above: Performed By: #### A 1C #### [facility] [address] [place] [address] Dr. Rc Foster LIPID PROFILEon 03-30-2022 CHOL-HDL RATIO NORM SEE BELOW Normal [facility] Comment on above: Result Comment: 3.3 - 4.4 LOW RISK 4.4 - 7.1 AVERAGE RISK 7.1 - 11.0 MODERATE RISK >11.0 HIGH RISK Performed By: #### T SH, CMP, LIPID ####[facility] [address] [place] [address]Dr. cR Foster Cholesterol [Mass/Vol] 184 mg/dL Normal <=200 [facility] Comment on above: Performed By: #### T SH, CMP, LIPID ####[facility] [address] [place] [id number]. Rc Foster Cholesterol in HDL [Mass/Vol] 42 mg/dL Normal 40-60 [facility] Comment on above: Performed By: #### T SH, CMP, LIPID ####[facility] [address] [place] [address]Dr. Rc Foster Cholesterol in LDL [Mass/Vol] 87.0 mg/dL Normal [facility] Comment on above: Performed By: #### T SH, CMP, LIPID ####[facility] [address] [place] [address]Dr. Rc Foster Cholesterol.total/Ch olesterol in HDL [Mass ratio] 4.4 {ratio} Normal [facility] Comment on above: Performed By: #### T SH, CMP, LIPID ####[facility] [address] [place] [address]Dr. Rc Foster HDL NORMAL > or = 60 mg/dl - LO W CARDIOVASCULAR RISK <40 mg/dl - HIGH CARDIOVASCULAR RISK Normal [facility] Comment on above: Performed By: #### T SH, CMP, LIPID ####[facility] [address] [place] [address]Dr. Rc Foster LDL CALC NORMAL SEE BELOW Normal [facility] Comment on above: Result Comment: <100 mg/dl OPTIMAL 100 - 129 mg/dl NEAR OR ABOVE OPTIMAL 130 - 159 mg/dl BORDERLINE HIGH 160 - 189 mg/dl HIGH >190 mg/dl VERY HIGH Performed By: #### T SH, CMP, LIPID ####[facility] [address] [place] [address]Dr. Siribreanna Foster Triglyceride [Mass/Vol] 275 mg/dL Critically high <=150 [facility] Comment on above: Performed By: #### T SH, CMP, LIPID ####[facility] [address] [place] [address]Dr. Rc Foster VLDL CALC 55.0 mg/dL Normal [facility] Comment on above: Performed By: #### T SH, CMP, LIPID ####[facility] [address] [place] [address]Dr. Rc Foster PROF 14(COMP METB)on 022 Albumin [Mass/Vol] 4.0 g/dL Normal 3.4-5.0 [facility] Comment on above: Performed By: #### T SH, CMP, LIPID ####[facility] [address] [place] [address]Dr. Rc Foster Albumin/Globulin [Mass ratio] 1.1 {ratio} Normal [facility] Comment on above: Performed By: #### T SH, CMP, LIPID ####[facility] [address] [place] [address]Dr. Rc Foster ALP [Catalytic activity/Vol] 71 U/L Normal 46-116 [facility] Comment on above: Performed By: #### T SH, CMP, LIPID ####[facility] [address] [place] [address]Dr. Rc Foster ALT [Catalytic activity/Vol] 29 U/L Normal 14-59 [facility] Comment on above: Performed By: #### T SH, CMP, LIPID ####[facility] [address] [place] [address]Dr. Rc Foster Anion gap [Moles/Vol] 13.2 mmol/L Normal [facility] Comment on above: Performed By: #### T SH, CMP, LIPID ####[facility] [address] [place] [address]Dr. Rc Foster AST [Catalytic activity/Vol] 17 U/L Normal 15-37 [facility] Comment on above: Performed By: #### T SH, CMP, LIPID ####[facility] [address] [place] [address]Dr. Rc Foster Bilirubin [Mass/Vol] 0.6 mg/dL Normal 0.2-1.0 [facility] Comment on above: Performed By: #### T SH, CMP, LIPID ####[facility] [address] [place] [address]Dr. Rc Foster Calcium [Mass/Vol] 9.0 mg/dL Normal 8.5-10.1 [facility] Comment on above: Performed By: #### T SH, CMP, LIPID ####[facility] [address] [place] [address]Dr. Rc Foster Chloride [Moles/Vol] 102 mmol/L Normal 98-107 [facility] Comment on above: Performed By: #### T SH, CMP, LIPID ####[facility] [address] [place] [address]Dr. Rc Foster CO2 [Moles/Vol] 27.3 mmol/L Normal 21.0-32.0 [facility] Comment on above: Performed By: #### T SH, CMP, LIPID ####[facility] [address] [place] [address]Dr. Rc Foster Creatinine [Mass/Vol] 1.00 mg/dL Normal 0.55-1.02 [facility] Comment on above: Performed By: #### T SH, CMP, LIPID ####[facility] [address] [place] [address]Dr. Rc Foster EGFR-AF INDIAN >60 Normal >=60 [facility] Comment on above: Performed By: #### T SH, CMP, LIPID ####[facility] [address] [place] [address]Dr. Rc Foster EGFR-NON AF INDIAN 56 mL/min/1.73m2 Critically low >=60 [facility] Comment on above: Performed By: #### T SH, CMP, LIPID ####[facility] [address] [place] [address]Dr. Rc Foster Globulin (S) [Mass/Vol] 3.5 g/dL Normal [facility] Comment on above: Performed By: #### T SH, CMP, LIPID ####[facility] [address] [place] [id number]. Rc Foster Glucose [Mass/Vol] 159 mg/dL Critically high 74-106 [facility] Comment on above: Performed By: #### T SH, CMP, LIPID ####[facility] [address] [place] [id number]. Rc Foster Potassium [Moles/Vol] 4.5 mmol/L Normal 3.5-5.1 [facility] Comment on above: Performed By: #### T SH, CMP, LIPID ####[facility] [address] [place] [id number]. Rc Foster Protein [Mass/Vol] 7.5 g/dL Normal 6.4-8.2 [facility] Comment on above: Performed By: #### T SH, CMP, LIPID ####[facility] [address] [place] [address]Dr. Rc Foster Sodium [Moles/Vol] 138 mmol/L Normal 136-145 [facility] Comment on above: Performed By: #### T SH, CMP, LIPID ####[facility] [address] [place] [id number]. Rc Foster Urea nitrogen [Mass/Vol] 23.0 mg/dL Critically high 7.0-18.0 [facility] Comment on above: Performed By: #### T SH, CMP, LIPID ####[facility] [address] [place] [id number]. Rc Foster Urea nitrogen/Creatinine [Mass ratio] 23.0 mg/mg Normal [facility] Comment on above: Performed By: #### T SH, CMP, LIPID ####[facility] [address] [place] [id number]. Rc Foster TSHon 03-30-2022 TSH 2.807 uIU/mL Normal 0.358-3.740 [facility] Comment on above: Performed By: #### T SH, CMP, LIPID ####[facility] [id number] [address]Dr. Rc Foster US THYROIDon 03-30-2022 US THYROID [...] fine needle aspiration. Electronically authenticated by: BERNY QUISPE Date: 2022-03-30 11:03 Normal [facility] MG MAMM SCREEN 3D LEX CADon 03-19-2022 MG MAMM SCREEN 3D LEX CAD Patient: CARROLL FUENTES Exam Date: 03/19/2022 : 1960 Gender:F Ordering : DR ROBERT VILLASENOR D.O. Admission #: [id number] Family : Order #: [id number] CLICK HERE TO VIEW EXAM RADIOLOGY REPORT [...] No Treatments None Family Cancers None LOCATION: [facility] BREAST COMPOSITION: Scattered areas fibroglandular density. [...] LUMP SHOULD BE BIOPSIED. Dictated by: Berny Quispe M.D. on 03/23/2022 at 11:52 Approved by: Berny Quispe M.D. on 03/23/2022 at 11:59 Normal [facility] CBC AUTO DIFFon 11-27-2021 BASO # 0.0 103/ul Normal 0.0-0.1 [facility] Comment on above: Performed By: #### C BC #### [facility] [address] [place] [address] Dr. Rc Foster Basophils/100 WBC (Bld) 0.7 % Normal 0.2-2.0 [facility] Comment on above: Performed By: #### C BC #### [facility] [address] [place] [address] Dr. Rc Foster EO # 0.6 103/ul Normal 0.0-0.7 [facility] Comment on above: Performed By: #### C BC #### [facility] [address] [place] [address] Dr. Rc Foster Eosinophils/100 WBC (Bld) 10.3 % Critically high 0.9-7.0 [facility] Comment on above: Performed By: #### C BC #### [facility] [address] [place] [address] Dr. Rc Foster Erythrocyte distribution width (RBC) [Ratio] 12.4 % Normal 11.0-15.0 [facility] Comment on above: Performed By: #### C BC #### [facility] [address] [place] [address] Dr. Rc Foster Hematocrit (Bld) [Volume fraction] 41.2 % Normal 36.0-48.0 [facility] Comment on above: Performed By: #### C BC #### [facility] [address] [place] [address] Dr. Rc Foster Hemoglobin (Bld) [Mass/Vol] 13.4 g/dL Normal 12.0-16.0 [facility] Comment on above: Performed By: #### C BC #### [facility] [address] [place] [address] Dr. Rc Foster IG # 0.01 10e3/ul Normal 0.00-0.03 [facility] Comment on above: Performed By: #### C BC #### [facility] [address] [place] [address] Dr. Rc Foster IG % 0.2 % Normal 0.0-0.5 [facility] Comment on above: Performed By: #### C BC #### [facility] [address] [place] [address] Dr. Rc Foster LYMPH # 2.3 103/ul Normal 1.2-3.8 [facility] Comment on above: Performed By: #### C BC #### [facility] [address] [place] [address] Dr. Rc Foster Lymphocytes/100 WBC (Bld) 40.6 % Normal 20.5-60.0 [facility] Comment on above: Performed By: #### C BC #### [facility] [address] [place] [address] Dr. Rc Foster MANUAL DIFF REQ NO Normal [facility] Comment on above: Performed By: #### C BC #### [facility] [address] [place] [address] Dr. Rc Foster MCH (RBC) [Entitic mass] 28.8 pg Normal 26.7-34.0 [facility] Comment on above: Performed By: #### C BC #### [facility] [address] [place] [address] Dr. Rc Foster MCHC (RBC) [Mass/Vol] 32.5 g/dL Normal 29.9-35.2 [facility] Comment on above: Performed By: #### C BC #### [facility] [address] [place] [address] Dr. Rc Foster MCV (RBC) [Entitic vol] 88.6 fL Normal 81.0-99.0 [facility] Comment on above: Performed By: #### C BC #### [facility] [address] [place] [address] Dr. Rc Foster MONO # 0.4 103/ul Normal 0.3-0.8 [facility] Comment on above: Performed By: #### C BC #### [facility] [address] [place] [address] Dr. Rc Foster Monocytes/100 WBC (Bld) 7.6 % Normal 1.7-12.0 [facility] Comment on above: Performed By: #### C BC #### [facility] [address] [place] [address] Dr. Rc Foster NEUT # 2.3 103/ul Normal 1.4-6.5 [facility] Comment on above: Performed By: #### C BC #### [facility] [address] [place] [address] Dr. Rc Foster Neutrophils/100 WBC (Bld) 40.6 % Critically low 43.0-75.0 [facility] Comment on above: Performed By: #### C BC #### [facility] [address] [place] [address] Dr. Rc Foster Platelet mean volume (Bld) [Entitic vol] 9.6 fL Normal 9.5-13.5 [facility] Comment on above: Performed By: #### C BC #### [facility] [address] [place] [address] Dr. Rc Foster PLT 194 103/ul Normal 150-450 [facility] Comment on above: Performed By: #### C BC #### [facility] [address] [place] [address] Dr. Rc Foster RBC 4.65 106/ul Normal 4.20-5.40 [facility] Comment on above: Performed By: #### C BC #### [facility] [address] [place] [address] Dr. Rc Foster WBC 5.5 103/ul Normal 4.0-11.0 [facility] Comment on above: Performed By: #### C BC #### [facility] [address] [place] [address] Dr. Rc Foster GLYCOHEMOGLOBIN A1Con 2021 ADA RECOMMENDATION SEE BELOW Normal [facility] Comment on above: Result Comment: ADA RECOMMENDED LIMIT 4.0 - 6.0 ADA THERAPEUTIC TARGET < 7.0 ACTION SUGGESTED > 7.0 Performed By: #### A 1C #### [facility] [address] [place] [address] Dr. Rc Foster Glucose [Mass/Vol] 131 mg/dL Normal [facility] Comment on above: Performed By: #### A 1C #### [facility] [address] [place] [address] Dr. Rc Foster HbA1c (Bld) [Mass fraction] 6.2 % Normal 4.5-6.2 [facility] Comment on above: Performed By: #### A 1C #### [facility] [address] [place] [address] Dr. Rc Foster PROF CHEM 8 (BAS METB)on Anion gap [Moles/Vol] 15.2 mmol/L Normal [facility] Comment on above: Performed By: #### T MARY JANE, BMP #### [facility] [address] [place] [address] Dr. Rc Foster Calcium [Mass/Vol] 8.5 mg/dL Normal 8.5-10.1 [facility] Comment on above: Performed By: #### T SH, BMP #### [facility] [address] [place] [address] Dr. Rc Foster Chloride [Moles/Vol] 100 mmol/L Normal 98-107 [facility] Comment on above: Performed By: #### T SH, BMP #### [facility] [address] [place] [address] Dr. Rc Foster CO2 [Moles/Vol] 26.6 mmol/L Normal 21.0-32.0 [facility] Comment on above: Performed By: #### T SH, BMP #### [facility] [address] [place] [address] Dr. Rc Foster Creatinine [Mass/Vol] 1.15 mg/dL Critically high 0.55-1.02 [facility] Comment on above: Performed By: #### T SH, BMP #### [facility] [address] [address] [address] Rc Foster EGFR-AF INDIAN 58 mL/min/1.73m2 Critically low >=60 [facility] Comment on above: Performed By: #### T SH, BMP #### [facility] [address] [address] [address] Rc Foster EGFR-NON AF INDIAN 48 mL/min/1.73m2 Critically low >=60 [facility] Comment on above: Performed By: #### T MARY JANE, BMP #### [facility] [address] [place] [address] Dr. Rc Foster Glucose [Mass/Vol] 211 mg/dL Critically high 74-106 [facility] Comment on above: Performed By: #### T MARY JANE, BMP #### [facility] [address] [place] [address] Dr. Rc Foster Potassium [Moles/Vol] 4.8 mmol/L Normal 3.5-5.1 [facility] Comment on above: Performed By: #### T MARY JANE, BMP #### [facility] [address] [place] [address] Dr. Rc Foster Sodium [Moles/Vol] 137 mmol/L Normal 136-145 [facility] Comment on above: Performed By: #### T MARY JANE, BMP #### [facility] [address] [place] [address] Dr. Rc Foster Urea nitrogen [Mass/Vol] 33.0 mg/dL Critically high 7.0-18.0 [facility] Comment on above: Performed By: #### T SH, BMP #### [facility] [address] [place] [address] Dr. Rc Foster Urea nitrogen/Creatinine [Mass ratio] 28.7 mg/mg Normal [facility] Comment on above: Performed By: #### T SH, BMP #### [facility] [address] [place] [address] Dr. Rc Foster TSHon 11-27-2021 TSH 0.744 uIU/mL Normal 0.358-3.740 [facility] Comment on above: Performed By: #### T MARY JANE, TATUM #### [facility] [address] [address] [address] Rc Foster SYMPTOMATIC COVID-19 ANTIGEN on 10-28-2021 EUA Statement SEE BELOW Normal [facility] Comment on above: Result Comment: This [...] revoked sooner. Performed By: #### C ELPIDIOS ####[facility] [id number] [address]Dr. Rc Foster SARS-CoV-2 (COVID-19) RNA YARED+probe Ql (Unsp spec) Negative Normal NEGATIVE [facility] Comment on above: Performed By: #### C VDAGS ####[facility] [id number] [address]Dr. Rc Foster GLYCOHEMOGLOBIN A1Con 2021 ADA RECOMMENDATION SEE BELOW Normal [facility] Comment on above: Result Comment: ADA RECOMMENDED LIMIT 4.0 - 6.0 ADA THERAPEUTIC TARGET < 7.0 ACTION SUGGESTED > 7.0 Performed By: #### A 1C #### [facility] [address] [place] [address] Dr. Rc Foster Glucose [Mass/Vol] 128 mg/dL Normal [facility] Comment on above: Performed By: #### A 1C #### [facility] [address] [address] [address] Rc Foster HbA1c (Bld) [Mass fraction] 6.1 % Normal 4.5-6.2 [facility] Comment on above: Performed By: #### A 1C #### [facility] [address] [address] [address] Rc Foster Discharge CCD Assessmenton 0 09-06-2020 Discharge CCD Assessment [facility] Patient: CARROLL FUENTES [address] [place] [address] MR#: [id number] DISCHARGE CCD ASSESSMENT : 58 Service Date: 09/06/20 1018 Discharge CCD Assessment Assessment Patient discharged home to continue exercises, pain medication, and wound care Electronically Signed eSign Date and Time Melyssa Flores 09/06/20 1019 Tera Hernandez MD Normal [facility] GLUCOSE METERon 09-06-2020 Glucose [Mass/Vol] 126 mg/dL High 70-99 [facility] Comment on above: Order Comment: CONSE RVATION Result Comment: Fast ing GLUCOSE reference range has been updated per (ADA) [place] [employer]'s recommendation. 07/18/2018 Performed By: #### L 500.92324 ####Test performed at: [place] [address] Glucose [Mass/Vol] 205 mg/dL High 70-99 [facility] Comment on above: Order Comment: CONSE RVATION Result Comment: Fast ing GLUCOSE reference range has been updated per (ADA) [place] Diabetes [employer]'s recommendation. 07/18/2018 Insulin per sl scale Performed By: #### L 500.92913 #### Test performed at: [place] [address] Internal Med Progress Noteon 09-06-2020 Internal Med Progress Note [facility] Patient: CARROLL FUENTES [address] [place], [place] [id number] MR#: [id number] PROGRESS NOTE - Internal Medicine : 58 Service Date: 09/06/20 0746 Subjective Summary of Stay Ms. Fuentes is a 60 yo F with a PMHx of DM2 well controlled, HTN, migraines, HLD, Hypothyroidism, ADAN, restless legs, Hysterectomy and ovaries removed, partial thyroidetomy , C5-C6 surgeries x 2 (most recent 2018), bilateral shoulder replacement, cardiac cath 2015 which was okay, who is POD-2 s/p Left L4-L5 laminectomy, foraminectomy, decompression. Surgery was uncomplicated, EBL < 30 cc, WILL drain in place, no soriano. IM consulted for postoperative medical management. Pt [...] - 99 mg/dL) 126 205 177 310 Assessment/Plan-Interna l Med Problem List 1. S/P cervical disc [...] 30 cc, WILL drain in place, no soriano. - Pt reports mild lumbar surgical site [...] Flanagan RES, Katarzyna MD 09/06/20 1134 Normal [facility] Orthopedic Progress Noteon 0 09-06-2020 Orthopedic Progress Note [facility] Patient: CARROLL FUENTES [address] [place] [address] MR#: [id number] PROGRESS NOTE - Orthopedic : 58 Service [...] Electronically Signed eSign Date and Time Selene Nweton RN 09/06/20 1022 Tera Hernandez MD Normal [facility] Anesthesia Noteon 09-05-2020 Anesthesia Note [facility] Patient: CARROLL FUENTES [address] [place] [address] MR#: [id number] ANESTHESIA NOTE : Service Date: 09/05/20 0812 [...] Signed eSign Date and Time Krystian Akers APRN-LABORER [employer] 09/05/20 0813 Chu Glez MD Normal [facility] BASIC MET PANELon 09-05-2020 Anion gap [Moles/Vol] 12 mmol/L Normal 6-18 [facility] Comment on above: Performed By: #### L 500.27089, L500.62475 #### Test performed at: [place] [address] Calcium [Mass/Vol] 8.7 mg/dL Normal 8.5-10.1 [facility] Comment on above: Performed By: #### L 500.73551, L500.37880 #### Test performed at: [place] [address] Chloride [Moles/Vol] 101 mmol/L Normal 98-107 [facility] Comment on above: Performed By: #### L 500.85718, L500.92932 #### Test performed at: [address] [address] CO2 [Moles/Vol] 25 mmol/L Normal 21-32 [facility] Comment on above: Performed By: #### L 500.95382, L500.62195 #### Test performed at: [address] [address] Creatinine [Mass/Vol] 1.020 mg/dL Normal 0.550-1.020 [facility] Comment on above: Performed By: #### L 500.98581, L500.89307 #### Test performed at: [address] [address] Glucose [Mass/Vol] 264 mg/dL High 70-99 [facility] Comment on above: Result Comment: Fast ing GLUCOSE reference range has been updated per (ADA) [place] Diabetes Association's recommendation. 07/18/2018 Performed By: #### L 500.09755, L500.83633 #### Test performed at: [address] [address] OSM 289 mosm/kg Normal 270-300 [facility] Comment on above: Performed By: #### L 500.82672, L500.11987 #### Test performed at: [address] [address] Potassium [Moles/Vol] 4.5 mmol/L Normal 3.5-5.1 [facility] Comment on above: Performed By: #### L 500.26078, L500.13696 #### Test performed at: [address] [address] Sodium [Moles/Vol] 134 mmol/L Low 136-145 [facility] Comment on above: Performed By: #### L 500.35521, L500.50159 #### Test performed at: [address] [address] Urea nitrogen [Mass/Vol] 17 mg/dL Normal 7-18 [facility] Comment on above: Performed By: #### L 500.56032, L500.37972 #### Test performed at: [place] [id number] GFR ESTIMATEon 09-05-2020 IF AMER > 60 Normal > 60 [facility] Comment on above: Result Comment: eGFR (Estimated GFR) Units of measure:mL/min/1.73 meters sq. *CALCULATION REVISED 02/11/2015;IDMS-traceable MDRD equation eGFR is derived from the reexpressed MDRD Study equation using the following parameters: serum creatinine, age, gender and race. An eGFR<60 mL/min/1.73m2 for >3 months is consistent with chronic kidney disease. Refer to KDOQI guidelines for clinical interpretation. Performed By: #### L 500.94549, L500.18534 #### Test performed at: [place] [id number] IF non-AFR AMER 55 Low > 60 [facility] Comment on above: Performed By: #### L 500.05333, L500.88407 #### Test performed at: [address] [address] GLUCOSE METERon 09-05-2020 Glucose [Mass/Vol] 177 mg/dL High 70-99 [facility] Comment on above: Order Comment: CONSE RVATION Result Comment: Fast ing GLUCOSE reference range has been updated per (ADA) [place] Diabetes Association's recommendation. 07/18/2018 Performed By: #### L 500.21828 #### Test performed at: [address] [address] Glucose [Mass/Vol] 310 mg/dL High 70-99 [facility] Comment on above: Result Comment: Fast ing GLUCOSE reference range has been updated per (ADA) [place] Diabetes Association's recommendation. 07/18/2018 Insulin per sl scale Performed By: #### L 500.07084 ####Test performed at: [address] [address] Glucose [Mass/Vol] 281 mg/dL High 70-99 [facility] Comment on above: Result Comment: Fast ing GLUCOSE reference range has been updated per (ADA) [place] Diabetes Association's recommendation. 07/18/2018 Insulin per sl scale Performed By: #### L 500.06150 #### Test performed at: [address] [address] Glucose [Mass/Vol] 105 mg/dL High 70-99 [facility] Comment on above: Result Comment: Fast ing GLUCOSE reference range has been updated per (ADA) [place] Diabetes Association's recommendation. 07/18/2018 Performed By: #### L 500.46926 #### Test performed at: [address] [address] HGB AND HCTon 09-05-2020 Hematocrit (Bld) [Volume fraction] 37.5 % Normal 36.0-48.0 [facility] Comment on above: Performed By: #### L 200.14800 #### Test performed at: [address] [address] Hemoglobin (Bld) [Mass/Vol] 12.5 g/dL Normal 12.0-15.0 [facility] Comment on above: Performed By: #### L 200.69440 #### Test performed at: [place] [id number] Internal Med Progress Noteon 09-05-2020 Internal Med Progress Note [facility] Patient: CARROLL FUENTES [address] [place], [place] [id number] MR#: [id number] PROGRESS NOTE - Internal Medicine : 58 Service Date: 09/05/20 0831 Subjective Summary of Stay Ms. Fuentes is a 60 yo F with a PMHx of DM2 well controlled, HTN, migraines, HLD, Hypothyroidism, ADAN, restless legs, Hysterectomy and ovaries removed, partial thyroidetomy , C5-C6 surgeries x 2 (most recent 2018), bilateral shoulder replacement, cardiac cath 2015 which was okay, who is POD-1 s/p Left L4-L5 laminectomy, foraminectomy, decompression. Surgery was uncomplicated, EBL < 30 cc, WILL drain in place, no soriano. IM consulted for postoperative medical management. Pt [...] 12.5 Hct (36.0 - 48.0 %) 37.5 Assessment/Plan-Interna l Med Problem List 1. S/P cervical disc [...] 30 cc, WILL drain in place, no soriano. - Pt reports mild lumbar surgical site [...] input. Disc (more content not included)... Normal [facility] OT Therapy Recommendationson 09-05-2020 OT Therapy Recommendations [facility] Patient: CARROLL FUENTES [address] [place], [place] [address] MR#: [id number] OT THERAPY RECOMMENDATIONS : 58 Service Date: 09/05/201510 Therapy Recommendations Therapy Recommendations Recommendations OT evaluation completed. OT recommends HOME with FAmily assist. No further acute OT needs are indicated at this time. Electronically Signed eSign Date and Time Trupti Rojas OT 09/05/20 151 Normal [facility] Orthopedic Progress Noteon 0 09-05-2020 Orthopedic Progress Note [facility] Patient: CARROLL FUENTES [address] [id number] MR#: [id number] PROGRESS NOTE - Orthopedic : 58 Service [...] KHAN 09/05/20 1429 Tera Hernandez MD Normal [facility] PT Therapy Recommendationson 09-05-2020 PT Therapy Recommendations [facility] Patient: CARROLL FUENTES [address] [place], [place] [address] MR#: [id number] PT THERAPY RECOMMENDATIONS : 58 Service Date: 09/05/20 09 Therapy Recommendations Therapy Recommendations Recommendations PT eval complete. No further acute PT needs. Recommend d/c home /c family assist. Electronically Signed eSign Date and Time Tiffanie Bashir PT 09/05/20 0914 Normal [facility] z OT Inpatient Discharge Not juan 09-05-2020 z OT Inpatient Discharge Note [facility] Patient: CARROLL FUENTES [address] [place], [place] [address] MR#: [id number] OT INPATIENT DISCHARGE NOTE : 58 Service [...] Time Trupti Rojas OT 09/05/20 1534 Normal [facility] z OT Inpatient Evaluationon 09-05-2020 z OT Inpatient Evaluation [facility] Patient: CARROLL FUENTES [address] [place] [address] MR#: [id number] OT INPATIENT EVALUATION : 58 Inpatient OT HPI Date of Service 09/05/20 Time In: 1401 Time Out: 1412 Total Treatment Time (Mins) 11 Visit Reason LATERAL RECESS STENOSIS W/ RADICULOPATHY Surgery Type/Date s/p L L4-5 LAmi, foraminotomy, decompression on 09.04.20/ Lumbar spine precautions Referral Date 09/04/20 Tx Diagnosis: LOW BACK PAIN Insurance Name [employer] [facility] POS [facility] Hospital Course Pt [...] 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 Objective Precautions Lumbar [...] Excellent Nader (more content not included)... Normal [facility] z PT Inpatient Discharge Not juan 09-05-2020 z PT Inpatient Discharge Note [facility] Patient: CARROLL FUENTES [address] [place], [place] [address] MR#: [id number] PT INPATIENT DISCHARGE NOTE : 58 Service [...] Time Tiffanie Bashir PT 09/05/20 1139 Normal [facility] z PT Inpatient Evaluationon 09-05-2020 z PT Inpatient Evaluation [facility] Patient: CARROLL FUENTES [address] [place], [place] [id number] MR#: [id number] PT INPATIENT EVALUATION : 58 Service Date: 09/05/20 0928 Inpatient PT HPI Date of Service 09/05/20 Time In: 0845 Time Out: 0907 Total Treatment Time (Mins) 22 Room Number [id number] Visit Reason LATERAL RECESS STENOSIS W/ RADICULOPATHY Surgery Type: L L4-5 lami, foraminotomy, decompression Surgery Date: 09/04/20 Referral Date 09/04/20 Tx Diagnosis: LOW BACK PAIN Insurance Name [facility] POS [facility] Hospital Course 60 y.o female at [facility] for above sx d/t lateral recess [...] posture. 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 Pt agreeable to use of her [...] Time Tiffanie Bashir PT 09/05/20 1502 Normal [facility] GLUCOSE METERon 09-04-2020 Glucose [Mass/Vol] 94 mg/dL Normal 70-99 [facility] Comment on above: Result Comment: Fast ing GLUCOSE reference range has been updated per (ADA) [place] [employer]'s recommendation. 07/18/2018 Performed By: #### L 500.25098 ####Test performed at: [place] [address] Internal Medicine Consultati onon 09-04-2020 Internal Medicine Consultation [facility] Patient: CARROLL FUENTES [address] [place] [address] MR#: [id number] CONSULTATION - Internal Medicine : 58 Service Date: 09/04/20 1547 History of Present Illness Referring Physician Tear Hernandez MD Consulted Physician Amber Haines MD Reason for Consult Postoperative medical management Chief Complaint/Present Illness: s/p L4-L5 Laminectomy, Foraminectomy, Decompression. HPI Ms. Fuentes is a 60 yo F with a PMHx of DM2 well controlled, HTN, migraines, HLD, Hypothyroidism, ADAN, restless legs, Hysterectomy and ovaries removed, partial thyroidetomy , C5-C6 surgeries x 2 (most recent 2018), bilateral shoulder replacement, cardiac cath 2016 which was okay, who is POD-0 s/p Left L4-L5 laminectomy, foraminectomy, decompression. Surgery was uncomplicated, EBL < 30 cc, WILL drain in place, no soriano. IM consulted for postoperative medical management. Pt [...] as Reported by RAISA CABELLO on 09/04/20 1057 Last Action: Reviewed on 09/04/20 105 by RAISA CABELLO Atenolol * (Tenormin *) 50 MG TABLET 50 MG PO DAILY MIGRAINES, Ref 0 (Reported) Entered as Reported by JORDON MATHUR on 12/11/18 0920 Last Action: Reviewed on 09/04/20 1055 by RAISA CABELLO Citalopram Hydrobromide * (CeleXA [...] Entered as Reported by RAISA CABELLO on 09/04/201050 Last Action: Reviewed on 09/04/201054 by RAISA CABELLO Pravastatin Sodium * (Pravachol *) 20 MG TABLET 20 MG PO QHS HIGH CHOLESTROL, Ref 0 ( Reported) Entered as Reported by JORDON MATHUR on 12/11/18916 Last Action: Reviewed on 09/04/201054 by RAISA CABELLO tiZANidine HCl * (Zanaflex *) 4 MG TABLET 4 MG PO QHS MUSCLE SPASMS, Ref 0 (Reported) Entered as Reported by JORDON MATHUR on 12/11/18915 Last Action: Reviewed on 09/04/201054 by RAISA CABELLO Scheduled PRN Medications Oxycodone HCl * (Roxicodone 5mg Tablet*) 5 MG TABLET 5 MG PO BIDPRN PRN Pain, Ref 0 ( Reported) Entered as Reported by RAISA CABELLO on 09/04/20 104 Last Action: Reviewed on 09/04/201054 by RAISA CABELLO Rizatriptan Benzoate* (Maxalt*) 10 MG TABLET 10 MG PO BIDPRN PRN MIGRAINES, Ref 0 ( Reported) Entered as Reported by JORDON MATHUR on 12/11/18 0915 Last Action: Reviewed on 09/04/201054 by RAISA CABELLO Discontinued Medications oxyCODONE HCl 5mg AND Acetaminophen 325mg * (Percocet 5mg/325mg Tablet *) 1 EACH TABLET 1 EACH PO Q4-6H PRN PRN post op pain 7 Days #40 TABLET, Ref 0 Discontinued reason: DC'ed by Physician Last Action: Discontinued on 09/04/201047 by RAISA CABELLO Review of Systems (more content not included)... Normal [facility] OPERATIVE REPORTon OPERATIVE REPORT NAME: CARROLL FUENTES MR#: [id number] SURGEON: Tera Hernandez MD DATE OF SURGERY: [...] there were no complications. TERA HERNANDEZ MD [facility] PT NAME: CARROLL FUENTES MR#: [id number] [address] [place] [address] ACCT: [id number] : 58 OPERATIVE REPORT JFS/MODL/[id number] E/S: Tera Hernandez MD 09/18/20 1207 Electronically Signed [facility] PT NAME: CARROLL FUENTES MR#: [id number] [address] [place], [place] [id number] ACCT: [id number] : 58 OPERATIVE REPORT Normal [facility] Primary Residenton 1 Primary Resident [facility] Pt Name: CARROLL FUENTES MR#: [id number] [address] ACCT: [id number] [place] [address] : 58 Service Date: 09/04/20 1603 Primary Resident/Call Primary Resident: [id number] [place] After Hours Call: [phone] Red Team Electronically Signed eSign Date and Time Ana Flanagan RES 09/16/20 1521 Normal [facility] LUMBAR SPINE 2 OR 3 VIEWSon 09-03-2020 LUMBAR SPINE 2 OR 3 VIEWS STUDY: LUMBAR SPINE 2 OR 3 VIEWS; 09/04/2020 2:57 pm INDICATION: LEFT L4-L5 LAMINECTOMY,FORAMINOTOM Y,DECOMPRESSION. COMPARISON: None. ACCESSION NUMBER(S): [id number] ORDERING CLINICIAN: Tera Hernandez FINDINGS: Intraoperative fluoroscopy of the lumbar spine demonstrates surgical instruments posterior to L5. IMPRESSION: As above Normal [facility] CHEST PA/AP & LATERALon CHEST PA/AP & LATERAL STUDY: CHEST PA/AP LATERAL; 08/25/2020 11:00 am INDICATION: SOB/PAT. COMPARISON: None. ACCESSION NUMBER(S): [id number] ORDERING CLINICIAN: Madelyn Leone FINDINGS: The lungs are clear without pleural effusion. Normal heart size, mediastinum, elzbieta, and pulmonary vasculature. IMPRESSION: No active disease in the chest. 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 [facility] PT NAME: CARROLL FUENTES MR#: [id number] [address] [place] [address] ACCT: [id number] : 58 CONSULTATION HEENT: Atraumatic head. 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 IMPRESSION: 1. Preop clearance for L4-L5 disk [...] for the courtesy of this consultation. MADELYN LEONE MD MS/MODL/[id number] E/S: Madelyn Leone MD 08/26/20 1750 Electronically Signed [facility] PT NAME: CARROLL FUENTES MR#: [id number] [address] [place] [address] ACCT: [id number] : 58 CONSULTATION Normal [facility] LUMB SP COMP W FLEX/EXT 6 VW S>on 08-08-2020 LUMB SP COMP W FLEX/EXT 6 VWS> STUDY: LUMB SP COMP W FLEX/EXT 6 VWS>; 08/08/2020 9:43 am INDICATION: BACK PAIN. COMPARISON: No available comparisons. ACCESSION NUMBER(S): [id number] ORDERING CLINICIAN: Tera Hernandez TECHNIQUE: 6 views [...] L5-S1 level. No evidence of instability.. Normal [facility] XR SHLDR >/=3V AP/RUSH AP/OTH R RTon [...] ANES Holly 06-20-2018 ANES POST HNO ID: [id number] Author: Rohit Velarde Service: Anesthesiology Author Type: [...] SIGNATURE: Rohit Velarde MD PATIENT NAME: Carroll Fuentes DATE: June 20, 2018 TIME: 2:38 PM PAGER/CONTACT #: [facility] ANES PREOPon 06-20-2018 ANES PREOP HNO ID: [id number] Author: oRhit Velarde Service: Anesthesiology Author Type: Anesthesiologist Type: Anesthesia PreOp Filed: 06/20/2018 9:41 AM Note Text: ANESTHESIOLOGY DAY OF SURGERY NOTE SERVICE DATE: 06/20/2018 SERVICE TIME: 9:40 AM : 1960 Procedure(s) (LRB): ARTHROPLASTY TOTAL SHOULDER; W/ GLENOID AND PROXIMAL HUMERAL REPLACEMENT (Right) Surgeon(s): Jenna Garsia Estimated body mass index is 33.29 kg/m? [...] (XYLOCAINE) 0.1-0.2 mL INTRADERMAL PRN Isreal Mccabe ([place]) [place] lactated ringers infusion 5-30 mL/hr INTRAVENOUS CONTINUOUS Isreal Mccabe ([place]) [place] ceFAZolin iv piggyback 2 g in D5W (iso-osmotic) 100 mL (ANCEF) 2 g INTRAVENOUS Pre-Op Once Isreal Kim) [place] acetaminophen 1,000 mg tab(s) (TYLENOL) 1,000 mg ORAL ONCE Isreal Eliot ([place]) [place] bupivacaine liposome (PF) 1.3 % (13.3 mg/mL) [...] SIGNATURE: Rohit Velarde MD PATIENT NAME: Carroll Fuentes DATE: June 20, 2018 TIME: 9:35 AM CSN: [id number] [facility] BRIEF OP NOTon 06-20-2018 BRIEF OP NOT HNO ID: [id number] Author: Kusum Francisco Service: Orthopaedic Surgery Author Type: Resident Type: Brief Op Note Filed: 06/20/2018 5:49 PM Note Text: BRIEF OP NOTE LOG ID: [id number] Surgery/Procedure Date: 06/20/2018 Incision/Procedure Start Time: 11:18 AM Incision Close/Procedure End Time: 1:17 PM Surgeon(s)/Proceduralis t(s) and Digital Watch Assembler(s): Surgeon(s) and Role: * Jenna Garsia - Primary * Augie Ortega - Fellow * Kusum Francisco - Resident - Assisting Procedure(s): right total shoulder arthroplasty Anesthesia: General Findings: glenohumeral arthritis Estimated Blood Loss: 150 mls Specimens: None Complications: None Pre-Op/Pre-Procedure Diagnosis: glenohumeral arthritis Post-Op/Post-Procedure Diagnosis: Glenohumeral arthritis, right [M19.011] SIGNATURE: Kusum Francisco MD PATIENT NAME: Carroll Fuentes DATE: June 20, 2018 TIME: 5:49 PM PAGER/CONTACT #: [facility] CASE MANAGEMon 06-20-2018 CASE MANAGEM HNO ID: [id number] Author: May Herrera (Sw) Service: Care Management Author Type: Fitness Plan Coordinator Type: Care Mgt Progress Note Filed: 06/20/2018 5:35 PM Note Text: CARE MANAGEMENT DISCHARGE NOTE SERVICE DATE: 06/20/2018 SERVICE TIME: 5:30P LOS: 0 days Admission Date: 06/20/2018 DISCHARGE ARRANGEMENT (list agency and phone number) Home Provider: Dr Villasenor () CAREGIVER ASSESSMENT: Caregiver is ready, willing and able to meet the patient's needs as recommended by the inter-professional team? No Caregiver Needed Patient's transition needs and plan for meeting these needs: Follow up with ortho Does the patient have an acute stroke diagnosis, or has the patient had a stroke during this admission? No HANDOFF COMMUNICATION: Primary Care Physician: Dr Villasenor is pcp summary of care sent via [facility] () Nurse to provide discharge instructions. TRANSPORTATION ARRANGEMENTS: Car Spouse ADDITIONAL CONTACT RESOURCES: Needs Prior to Discharge: Ready for Discharge Appointments for Next 45 Days Date Time Provider Location Dept Phone 07/03/2018 10:00 AM CAROLA BAPTISTE AT [phone] 07/03/2018 10:30 AM GABRIEL CANTU (FLETCHER) LATOSHA AT [phone] 07/31/2018 2:15 PM JENNA GARSIA AT [phone] Pt to be discharged home to follow up as above. SIGNATURE: DARIO Saini PATIENT NAME: Carroll Fuentes DATE: June 20, 2018 TIME: 5:31 PM PAGER/CONTACT #: [phone] [facility] CASE MGT INIT [facility] 2018 CASE MGT INIT [facility] HNO ID: [id number] Author: May Herrera (Sw) Service: Care Management Author Type: Fitness Plan Coordinator Type: Care Mgt Initial Assessment Filed: 06/20/2018 5:31 PM Note Text: CARE MANAGEMENT: ASSESSMENT AND DISCHARGE PLAN SERVICE DATE: 06/20/2018 SERVICE TIME: 5:27p PRIMARY CARE PHYSICIAN: Robert Villasenor MD ADMISSION STATUS: Inpatient Needs Prior to Discharge: Ready for Discharge MEDICAL: Patient/Business Services Director Stated Goals: To improve my functional status [...] None Has the Patient Been in a Half-Way Facility in the Past 30 days? 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 Primary Contact: Extended Emergency Contact Information Primary Emergency Contact: Babatunde Fuentes Address[address] [address] [place] [address] Relation: Spouse Supportive: Yes Other Important Patient [...] 0 I feel financially burdened by my akw-bg-wptseq expenses for my prescription medication: Disagree completely [...] arthroplasty done on 06/20/18. 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 O.Therapy recommend home. Spouse visiting at bedside and will transport pt home later today.Further discharge needs not anticipated.SW/TCC to follow to assist with plans for discharge. SIGNATURE: DARIO Saini PATIENT NAME: Carroll Fuentes DATE: June 20, 2018 TIME: 5:27 PM PAGER/CONTACT #: [phone] [facility] CONSULTon 06-20-2018 CONSULT HNO ID: [id number] Author: Dulce Green Service: General Internal Medicine Author Type: Nurse Practitioner Type: Consults Filed: 06/20/2018 4:44 PM Note Text: HISTORY AND PHYSICAL EXAMINATION PATIENT NAME: Carroll Fuentes SERVICE DATE: 06/20/2018 SERVICE TIME: 410pm PRIMARY CARE PHYSICIAN: Robert Villasenor MD REASON FOR CONSULT: Perioperative managment CHIEF COMPLAINT: S/p Right Total Shoulder Arthroplasty HPI: This is a 58 year old female with history of STEPHANIE, migraines, HTN, HLD, sharmin thyroiditis, DM, depression, who presents with complaints of worsening right shoulder pain. She states she has had pain for more than a year. She went to see Dr Garsia in Apr, XR showed advanced OA. She underwent Right Total Shoulder Arthroplasty per DR Garsia today. She is laying in bed ,seen [...] Disp: Rfl: 06/19/2018 at 0630 rizatriptan (MAXALT STRAIGHTENING PRESS OPERATOR) 10 mg disintegrating tablet DISSOLVE 1 [...] replacement of right shoulder [Z96.619]: with DR Garsia. Continue with PT/OT. Encourage strict IS. Acute [...] plan of care was developed with Dr. Meeks. Please see additional comments and addendum. Thank you for allowing us to participate in the care of your patient. Dulce Green, PROMOTION SPECIALIST.ROLL SHEETING CUTTER June 20, 2018 4:34 PM Normal [facility] NURSING PROGon 06-20-2018 Protein mass conc HNO ID: [id number] Author: Fela (Rn) FLETCHER Phillips Service: (none) Author Type: Registered Nurse Type: Nursing Progress Note Filed: 06/20/2018 7:39 PM Note Text: Nursing Progress Note Patient Name: Carroll Fuentes Patient Location: [facility]/-5TH FL-* Daily Note: 1545. Care assumed. Pt [...] Sun. 1400. OT at bedside. 1720. Dr. Meeks and Dulce SALVAGER at bedside, plan is to stay for [...] note was completed by: Fela Phillips RN [facility] Protein mass conc HNO ID: [id number] Author: Wendy (Rn) FLETCHER Underwood Service: Nursing Author Type: Registered Nurse Type: Nursing Progress Note Filed: 06/20/2018 10:20 AM Note Text: Nursing Progress Note Patient Name: Carroll Fuentes Patient [facility] S* Daily Note:Right interscalene nerve block with ultrasound guidance with Dr. Velarde and Dr. Marlow at bedside. Patient tolerated procedure well, VSS, will continue to monitor as we wait for OR team. Resting comfortably with no complaints of pain at this time. This note was completed by: Wendy Underwood RN [facility] OPERATIVE NOon 06-20-2018 OPERATIVE NO HNO ID: [id number] Author: Jenna Garsia Service: Orthopaedic Surgery Author Type: Physician Type: Operative Report Filed: 06/20/2018 1:25 PM Note Text: [facility] [address] [place] [address] [place] OPERATIVE REPORT NAME: Carroll [facility] #: [id number] DATE: 06/20/2018 (11:18am-1:17pm) AGE: 58 SURGEON 1: Jenna Garsia M.D. DIRECTOR OF RESEARCH AND DEVELOPMENT: 1. Augie Coates M.D. 2. Kusum Prasad M.D. 3. Mundo Pablo OPERATION: Right total shoulder arthroplasty, biceps tenodesis. ANESTHESIA: General anesthesia with regional interscalene nerve block for postoperative pain control. PREOPERATIVE DIAGNOSIS: Right shoulder primary glenohumeral osteoarthritis. POSTOPERATIVE DIAGNOSIS: Right shoulder primary glenohumeral osteoarthritis, biceps tendinopathy. OPERATIVE INDICATIONS: The patient is a 58 year oldetr-ftww-hxn right-hand dominant white female who has a [...] rotator interval stitch was then passed in rhghvo-na-qwzvr fashion with a #2 Ticron suture and tied down to close the lateral rotator interval and set the osteotomy superiorly. The two #2 Fiberwire sutures coming out of the bicipital groove were then sequentially passed in a cvumfx-ah-roluw fashion medial to the horizontal mattress and [...] Mundo Pablo, with the primary surgeon (Jenna Garsia M.D.) readily available. The remainder of the procedure, including all critical elements, was completed by the primary surgeon (Jenna Garsia M.D.) with assistance from Augie Coates M.D., and Kusum Prasad M.D. ESTIMATED BLOOD LOSS: 150 cc DRAINS: none SPECIMENS: none COMPLICATIONS: none apparent Jenna Garsia M.D. [facility] PT EDon 06-20-2018 PT ED HNO ID: [id number] Author: Cindy ValenciaRn) FLETCHER Griffin Service: (none) [...] Signed By: Cindy Griffin RN In Department: [facility] SURGICAL SERVICES Normal [facility] THERAPY NTon 06-20-2018 THERAPY NT HNO ID: [id number] Author: Abi (Ot) Alan Service: Occupational Therapy Author Type: Occupational Therapist Type: Therapy (PT/OT/Speech/Resp) Filed: 06/20/2018 4:59 PM Note Text: Occupational Therapy Evaluation SERVICE DATE: 06/20/2018 SERVICE TIME: 1550 to 1640 ROOM: [place] [address]- Recommended Discharge Disposition: Home Anticipated Discharge Needs: Physical Assist at Home Physical Assist at Home for: Shopping;Transportation ;Cleaning;Laundry;Meals ;Medication Management OT Recommendations to Nursing: ADL?s in [...] Session Occupational Therapy Problem List: Education Deficit;Safety Deficits;Pain;Edema;Imp aired Self Care;Decreased Activity Tolerance;Decreased Skin Integrity Patient [...] with: Patient;Family TREATMENT INTERVENTIONS: Therapy Diagnosis: Reduced mobility-other;Decrease d activities of daily living (ADL) Interventions Provided: Evaluation;Therapeutic Exercise (73520);Self Group Home Management (37015) $ Evaluation-Low (10708) Billed Units: 1 unit Therapeutic Exercise (94145) Treatment Minutes: 10 1 unit Skilled Intervention(s): Education in Self Group Home Management (33237) Treatment Minutes: 28 2 units Skilled Intervention(s): Instructed in post-op instructions during ADLs Education in . Pt was taught shoulder precautions and protocol per Dr Garsia. Instructed and educated patient on safety with [...] reviewed; Pt 58 yo F admitted on 2/26/19 for R TSA by Dr Garsia. Reason for Occupational Therapy Consult: safety assessment Relevant Past Medical History: DM, L TSA, depression, Patient Report: I want to go home today. Home Environment Patient Lives With: Spouse Assistance Available: timekeeper Number Of Stairs To Bed/Bath: 0 Equipment [...] evaluation/treatment. SIGNATURE: CHACORTA Estrada/L PATIENT NAME: Carroll Fuentes DATE: June 20, 2018 TIME: 4:54 PM [facility] XR SHOULDER 2V AP/TRUE AP RT [...] on Jun 20 2018 2:04PM EST [id number] [facility] NURSING PROGon 06-09-2018 Protein mass conc HNO ID: [id number] Author: Ivana (Rn) FLETCHER Helelr Service: Nursing Author Type: Registered Nurse Type: [...] RN June 15, 2018 4:39 PM Normal [facility] Type and SCR (30D)on 019 ABO/RH(D) Positive Normal [facility] HOSPon 04-28-2018 HOSP Patient:Adalberto Fuentes MRN: Height:5' 2 (1.575 m) Weight:186 lb (84.369 kg) Outpatient Medications as of 06/20/18: calcium phosphate dibas/vit D3 (VITAMIN D, WITH CALCIUM, ORAL) docusate sodium (COLACE) 100 mg capsule aspirin, enteric coated (ECOTRIN LOW STRENGTH) 81 mg EC tablet oxyCODONE-acetaminophen (PERCOCET) 5-325 mg tablet rizatriptan (MAXALT STRAIGHTENING PRESS OPERATOR) 10 mg disintegrating tablet mupirocin (BACTROBAN) [...] Progress Notes (RADIO CT SCAN [facility]): Missy Hemphill RT, Tech 06/07/2018 10:04 AM Sign at close encounter Radiology Service Progress Note PATIENT NAME: Carroll Fuentes DATE OF SERVICE: June 07, 2018 TIME: 9:54 AM PATIENT IDENTITY VERIFICATION COMPLETED USING TWO (2) METHODS: Patient confirmed name verbally and Date of . PATIENT GENDER DATA: Female. status: : No status: NO. PATIENT RELEVANT IMPLANT DATA REVIEWED: Not Applicable RADIOLOGY DEPARTMENT: CT; Exam(s) Completed: Upper extremity Rt shoulder PERIPHERAL IV DATA: Not applicable SIGNED BY: Missy Hemphill, June 07, 2018 9:54 AM Normal [facility] Vital Signs Date Time Vital Sign Value Performing Clinician Facility 07-11-2024 08:30-0400 Body temperature 98.6 [degF] Jose Sharif MD Work Phone: [facility] 07-11-2024 08:30-0400 Diastolic blood pressure 62 mm[Hg] Jose Sharif MD Work Phone: [facility] 07-11-2024 08:30-0400 Heart rate 88 /min Jose Sharif MD Work Phone: [facility] 07-11-2024 08:30-0400 Respiratory rate 16 /min Jose Sharif MD Work Phone: [facility] 07-11-2024 08:30-0400 SaO2% (BldA) [Mass fraction] 98 % Jose Sharif MD Work Phone: [facility] 07-11-2024 08:30-0400 Systolic blood pressure 117 mm[Hg] Jose Sharif MD Work Phone: [facility] 07-06-2024 20:16-0400 Body height 154.9 cm Jose Sharif MD Work Phone: [facility] 07-06-2024 20:16-0400 Body mass index (BMI) [Ratio] 33.07 kg/m2 Jose Sharif MD Work Phone: [facility] 07-06-2024 20:16-0400 Body weight 79.38 kg Jose Sharif MD Work Phone: [facility] 07-04-2024 15:04-0400 Body height 154.94 cm [facility] 07-04-2024 15:04-0400 Body mass index (BMI) [Ratio] 32.9 kg/m2 [facility] 07-04-2024 15:04-0400 Body weight 79.06 kg [facility] 07-04-2024 15:04-0400 Diastolic blood pressure 79 mm[Hg] [facility] 07-04-2024 15:04-0400 Heart rate 69 /min [facility] 07-04-2024 15:04-0400 Respiratory rate 12 /min [facility] 07-04-2024 15:04-0400 Systolic blood pressure 177 mm[Hg] [facility] 06-25-2024 10:11-0500 Body temperature 97.3 [degF] [facility] 06-25-2024 10:11-0500 Diastolic blood pressure 76 mm[Hg] [facility] 06-25-2024 10:11-0500 Heart rate 54 /min [facility] 06-25-2024 10:11-0500 Respiratory rate 16 /min [facility] 06-25-2024 10:11-0500 SaO2% (BldA) [Mass fraction] 98 % [facility] 06-25-2024 10:11-0500 Systolic blood pressure 119 mm[Hg] [facility] 06-25-2024 10:07-0500 Body height 154.94 cm [facility] 06-25-2024 10:07-0500 Body mass index (BMI) [Ratio] 32.9 kg/m2 [facility] 06-25-2024 10:07-0500 Body weight 79.15 kg [facility] 02-24-2024 14:13-0400 Body height 154.94 cm [facility] 02-24-2024 14:13-0400 Body mass index (BMI) [Ratio] 33.1 kg/m2 [facility] 02-24-2024 14:13-0400 Body temperature 96 [degF] [facility] 02-24-2024 14:13-0400 Body weight 79.6 kg [facility] 02-24-2024 14:13-0400 Diastolic blood pressure 84 mm[Hg] [facility] 02-24-2024 14:13-0400 Heart rate 66 /min [facility] 02-24-2024 14:13-0400 Systolic blood pressure 159 mm[Hg] [facility] 12-20-2023 15:35-0400 Body height 154.94 cm [facility] 12-20-2023 15:35-0400 Body mass index (BMI) [Ratio] 33.8 kg/m2 [facility] 12-20-2023 15:35-0400 Body weight 81.19 kg [facility] 12-20-2023 15:35-0400 Diastolic blood pressure 80 mm[Hg] [facility] 12-20-2023 15:35-0400 Heart rate 78 /min [facility] 12-20-2023 15:35-0400 Respiratory rate 12 /min [facility] 12-20-2023 15:35-0400 Systolic blood pressure 134 mm[Hg] [facility] 04-29-2023 09:00-0500 Body height 154.94 cm Robert Ball Other [facility] [employer] Other 04-29-2023 09:00-0500 Body mass index (BMI) [Ratio] 33.14 kg/m2 Robert Ball Other [facility] [employer] Other 04-29-2023 09:00-0500 Body weight 79.56 kg Robert Ball Other [facility] [employer] Other 04-29-2023 09:00-0500 Diastolic blood pressure 89 mm[Hg] Robert Ball Other [facility] [employer] Other 04-29-2023 09:00-0500 Respiratory rate 12 /min Robert Ball Other [facility] [employer] Other 04-29-2023 09:00-0500 Systolic blood pressure 155 mm[Hg] Robert Ball Other [facility] [employer] Other 12-20-2022 13:45-0400 Body height 154.94 cm Robert Ball Other [facility] Other 12-20-2022 13:45-0400 Body mass index (BMI) [Ratio] 34.12 kg/m2 Robert Ball Other [facility] Other 12-20-2022 13:45-0400 Body weight 81.92 kg Robert Ball Other [facility] Other 12-20-2022 13:45-0400 Diastolic blood pressure 96 mm[Hg] Robert Ball Other [facility] Other 12-20-2022 13:45-0400 Respiratory rate 12 /min Robert Ball Other [facility] Other 12-20-2022 13:45-0400 Systolic blood pressure 179 mm[Hg] Robert Ball Other [facility] Other 08-04-2022 09:45-0400 Body height 154.94 cm Robert Ball Other [facility] Other 08-04-2022 09:45-0400 Body mass index (BMI) [Ratio] 33.33 kg/m2 Robert Ball Other [facility] Other 08-04-2022 09:45-0400 Body weight 80.02 kg Robert Ball Other [facility] Other 08-04-2022 09:45-0400 Diastolic blood pressure 77 mm[Hg] Robert Ball Other [facility] Other 08-04-2022 09:45-0400 Respiratory rate 12 /min Robert Ball Other [facility] Other 08-04-2022 09:45-0400 Systolic blood pressure 128 mm[Hg] Robert Villasenor Other [facility] [employer] Other Encounters Encounter Date Encounter Type Care Provider Facility Start: 07-06-2024 End: 07-11-2024 Evaluation and management of inpatient Jose Sharif MD Work Phone: [facility] Start: 07-04-2024 End: 07-04-2024 ambulatory [facility] Work Phone: Start: 07-04-2024 End: 07-04-2024 Encounter for other preprocedural examination [facility] Start: 07-04-2024 End: 07-04-2024 [facility] Work Phone: Start: 06-27-2024 Non-patient / [facility] Work Phone: Start: 06-25-2024 End: 06-25-2024 ambulatory [facility] Work Phone: Start: 06-25-2024 End: 06-25-2024 Patient encounter [facility] Work Phone: Start: 06-21-2024 ambulatory Raisa PRICE Facility:[facility] Start: 06-01-2024 Non-patient / [facility] Work Phone: Start: 05-31-2024 Non-patient / [facility]visit [facility] Work Phone: Start: 04-09-2024 End: 04-09-2024 ambulatory Miriam Barron MD Facility: [facility] Start: 02-24-2024 End: 02-24-2024 ambulatory [facility] Work Phone: Start: 02-24-2024 End: 02-24-2024 Patient encounter [facility] Work Phone: Start: 02-22-2024 Non-patient / [facility] Work Phone: Start: 12-27-2023 Non-patient / [facility] Work Phone: Start: 12-20-2023 Patient encounter status [facility] Start: 12-20-2023 End: 12-20-2023 ambulatory [facility] Work Phone: Start: 12-20-2023 End: 12-20-2023 [facility] encounter [facility] Work Phone: Start: 09-26-2023 End: 09-26-2023 ambulatory Miriam Barron MD Facility: [facility] Start: 08-15-2023 End: 08-15-2023 ambulatory Miriam Barron MD Facility: [facility] Start: 08-08-2023 End: 08-08-2023 ambulatory Miriam Barron MD Facility: [facility] Start: 06-27-2023 End: 06-27-2023 ambulatory Miriam Barron MD Facility: [facility] Start: 06-06-2023 End: 06-06-2023 ambulatory Miriam Barron MD [facility]: [facility] Start: 06-01-2023 End: 06-01-2023 ambulatory Robert Villasenor Other [facility] Other Start: 06-01-2023 Telephone encounter Robert [facility] Start: 05-23-2023 End: 05-23-2023 ambulatory Miriam Barron MD Facility: [facility] Start: 05-13-2023 End: 05-13-2023 ambulatory Robert Villasenor Other [facility] Other Start: 05-13-2023 Telephone encounter Robert Kimble [facility] Start: 05-09-2023 End: 05-09-2023 ambulatory Robert Ball Other [facility] Other Start: 05-09-2023 Telephone encounter Robert Ball [facility] Start: 05-04-2023 End: 05-04-2023 ambulatory Robert Ball Other [facility] Other Start: 05-04-2023 Telephone encounter Robert Ball [facility] Start: 05-02-2023 End: 05-02-2023 ambulatory Robert Ball Other [facility] Other Start: 05-02-2023 Telephone encounter Robert Ball [facility] Start: 04-29-2023 End: 04-29-2023 ambulatory Robert Ball Other [facility] Other Start: 04-29-2023 Office outpatient vi sit 15 minutes Robert Ball [facility] Start: 04-04-2023 End: 04-04-2023 ambulatory Robert Ball Other [facility] Other Start: 04-04-2023 Telephone encounter Robert Ball [facility] Start: 01-24-2023 End: 01-24-2023 ambulatory Robert Ball Other [facility] Other Start: 01-24-2023 Telephone encounter Robert Ball [facility] Start: 12-23-2022 End: 12-23-2022 ambulatory Robert Ball Other [facility] Other Start: 12-23-2022 Telephone encounter Robert Ball [facility] Start: 12-20-2022 End: 12-20-2022 ambulatory Robert Ball Other [facility] Other Start: 12-20-2022 Office outpatient vi sit 15 minutes Robert Ball [facility] Start: 12-17-2022 End: 12-17-2022 ambulatory Robert Ball Other [facility] Other Start: 12-17-2022 Telephone encounter Robert Villasenor [facility] Start: 11-08-2022 End: 11-08-2022 ambulatory Robert Hamilton Other [facility] Other Start: 11-08-2022 Telephone encounter Robert Hamilton [facility] Start: 10-22-2022 End: 10-22-2022 ambulatory Robert Hamilton Other [facility] Other Start: 10-22-2022 Telephone encounter Robert Hamilton [facility] Start: 10-13-2022 End: 10-13-2022 ambulatory Robert Villasenor Other [facility] Other Start: 10-13-2022 Telephone encounter Robert Villasenor [facility] Start: 09-27-2022 End: 09-27-2022 ambulatory Robert Villasenor Other [facility] Other Start: 09-27-2022 Telephone encounter Robert Villasenor [facility] Start: 08-23-2022 End: 08-24-[address] RISHI PARKER Facility:[facility] Start: 08-04-2022 End: 08-04-2022 ambulatory Robert Villasenor Other [facility] Other Start: 08-04-2022 Office outpatient vi sit 25 minutes Robert Villasenor [facility] Start: 04-03-2022 Encounter for genera l adult medical examination without abnormal findings DR ROBERT VILLASENOR [facility] Start: 03-30-2022 End: 03-31-[address] ROBERT VILLASENOR Facility:[facility] Start: 03-30-2022 End: 03-31-2022 Encounter for general adult medical examination without abnormal findings DR ROBERT VILLASENOR Facility:[facility] Start: 03-19-2022 End: 03-20-[address] ROBERT VILLASENOR Facility:[facility] Start: 02-18-2022 End: 02-19-[address] YAIR WELLS . Facility:[facility] Start: 11-27-2021 End: 11-28-[address] ROBERT VILLASENOR Facility:[facility] Start: 10-28-2021 End: 10-28-[address] ROBERT VILLASENOR Facility:[facility] Start: 09-10-2021 End: 09-11-[address] ROBERT VILLASENOR Facility:[facility] Start: 07-03-2018 End: 07-03-2018 Patient encounter procedure [facility] Start: 06-20-2018 End: 06-20-2018 Evaluation and management of inpatient [facility] Procedures Date Procedure Procedure Detail Performing Clinician Start: 07-11-2024 Anion gap [Moles/Vol] A luis Diglio PA Work Phone: Start: 07-11-2024 End: 07-11-2024 Basic metabolic panel calcium total Dank Diglio PA Work Phone: Start: 07-11-2024 GLOMERULAR FILTRATIO N RATE, ESTIMATED Dank Diglio PA Work Phone: Start: 07-10-2024 Gluc bld gluc mntr d ev cleared fda spec home use Dank Diglio PA Work Phone: Start: 07-10-2024 Gluc bld gluc mntr d ev cleared fda spec home use Dank Diglio PA Work Phone: Start: 07-10-2024 Gluc bld gluc mntr d ev cleared fda spec home use Dank Diglio PA Work Phone: Start: 07-10-2024 Anion gap [Moles/Vol] A luis Diglio PA Work Phone: Start: 07-10-2024 End: 07-10-2024 Basic metabolic panel calcium total Dank Diglio PA Work Phone: Start: 07-10-2024 GLOMERULAR FILTRATIO N RATE, ESTIMATED Dank Diglio PA Work Phone: Start: 07-09-2024 Gluc bld gluc mntr d ev cleared fda spec home use Dank Diglio PA Work Phone: Start: 07-09-2024 Gluc bld gluc mntr d ev cleared fda spec home use Dank Diglio PA Work Phone: Start: 07-09-2024 Gluc bld gluc mntr d ev cleared fda spec home use Dank Diglio PA Work Phone: Start: 07-09-2024 Potassium serum plasma/whole blood Jose Sharif MD Work Phone: Start: 07-09-2024 Anion gap [Moles/Vol] A luis Diglio PA Work Phone: Start: 07-09-2024 End: 07-09-2024 Basic metabolic panel calcium total Dank Diglio PA Work Phone: Start: 07-09-2024 GLOMERULAR FILTRATIO N RATE, ESTIMATED Dank Diglio PA Work Phone: Start: 07-08-2024 Gluc bld gluc mntr d ev cleared fda spec home use Dank Diglio PA Work Phone: Start: 07-08-2024 Radex spine 1 view s pecify level Eloise Veliz MD Work Phone: Start: 07-08-2024 Radex spine 1 view s pecify level Eloise Veliz MD Work Phone: Start: 07-08-2024 End: 07-08-2024 LUMBAR LAMINECTOMY DECOMPRESSION POSTERIOR Eloise Veliz MD Work Phone: Start: 07-08-2024 Gluc bld gluc mntr d ev cleared fda spec home use Dank Diglio PA Work Phone: Start: 07-08-2024 Gluc bld gluc mntr d ev cleared fda spec home use Dank Diglio PA Work Phone: Start: 07-08-2024 Gluc bld gluc mntr d ev cleared fda spec home use Dank Diglio PA Work Phone: Start: 07-07-2024 Gluc bld gluc mntr d ev cleared fda spec home use Dank Diglio PA Work Phone: Start: 07-07-2024 Gluc bld gluc mntr d ev cleared fda spec home use Dankcarlotta Sams PA Work Phone: Start: 07-07-2024 Anion gap [Moles/Vol] O chelsea Sharif MD Work Phone: Start: 07-07-2024 End: 07-07-2024 Basic metabolic panel calcium total Jose Sharif MD Work Phone: Start: 07-07-2024 GLOMERULAR FILTRATIO N RATE, ESTIMATED Jose Sharif MD Work Phone: Start: 07-07-2024 Gluc bld gluc mntr d ev cleared fda spec home use Dank CHAPMAN Work Phone: Start: 07-07-2024 Radiologic exam ches t 2 views Jose Sharif MD Work Phone: Start: 07-06-2024 Anion gap [Moles/Vol] O chelsea Sharif MD Work Phone: Start: 07-06-2024 GLOMERULAR FILTRATIO N RATE, ESTIMATED Jose Sharif MD Work Phone: Start: 07-06-2024 Ecg routine ecg w/le ast 12 lds trcg only w/o i&r Jose Sharif MD Work Phone: Start: 07-06-2024 End: 07-06-2024 Gluc bld gluc mntr dev cleared fda spec home use Jose Sharif MD Work Phone: Start: 06-07-2018 Antibody screen JENNA TOVAR Plan of Treatment Date Care Activity Detail Author Start: 2034 Respiratory Syncytia l Virus (RSV) or age 60 yrs+ (1 - 1-dose 75+ series) Respiratory Syncytial Virus (RSV) or age 60 yrs+ (1 - 1-dose 75+ series) [facility] Start: 07-11-2025 GFR test (Diabetes, CKD 3-4, OR last GFR 15-59) GFR test (Diabetes, CKD 3-4, OR last GFR 15-59) [facility] Start: 04-25-2024 Annual Wellness Visi t (Medicare Advantage) Annual Wellness Visit (Medicare Advantage) [facility] Start: 12-25-2023 COVID-19 Vaccine ( season) COVID-19 Vaccine ( season) [facility] Start: 2014 Screening for osteoporosis DEXA (modify frequency per FRAX score) [facility] Start: 2009 Pneumococcal 50+ yea rs Vaccine (1 of 1 - PCV) Pneumococcal 50+ years Vaccine (1 of 1 - PCV) [facility] Start: 2009 Shingles vaccine (1 of 2) Shingles vaccine (1 of 2) [facility] Start: 2004 Screening for malign ant neoplasm of colon [facility] Start: 1999 Screening for malign ant neoplasm of breast Breast cancer screen [facility] Start: 1994 Diabetes screen Diabetes screen [facility] Start: 1989 Screening for malign ant neoplasm of cervix [facility] Start: 1980 Screening for malign ant neoplasm of cervix Pap smear [facility] Start: 1978 DTaP/Tdap/Td vaccine (1 - Tdap) DTaP/Tdap/Td vaccine (1 - Tdap) [facility] Start: 1977 Hepatitis C screening Hepatitis C sc reen [facility] Start: 1974 HIV screening HIV screen [facility] [employer] Start: 1971 Depression Screen Depression Screen [facility] Start: 1969 Lipid panel Lipids [employer] End: 07-15-2024 Basic metabolic 2000 panel - Serum or Plasma Basic Metabolic Panel Lab Routine Daily for 1 Weeks starting 07/09/2024 until 07/15/2024, 3 completed [facility] Comment on above: Daily for [address] arting 07/09/2024 until 07/15/2024, 3 completed Comprehensive metabo lic 2000 panel - Serum or Plasma [facility] Glucose [Mass/volume ] in Serum or Plasma POCT Glucose Point of Care Testing STAT As Needed until discontinued starting 07/06/2024 [facility] Comment on above: As Needed until disc ontinued starting 07/06/2024 Glucose [Mass/volume ] in Serum or Plasma POCT glucose Point of Care Testing Routine 4X Daily (AC & HS) until discontinued starting 07/07/2024, 18 completed [facility] Comment on above: 4X Daily (AC & HS) u ntil discontinued starting 07/07/2024, 18 completed Glucose [Mass/volume ] in Serum or Plasma POCT Glucose Point of Care Testing STAT As Needed until discontinued starting 07/10/2024 [facility] Comment on above: As Needed until disc ontinued starting 07/10/2024 End: 07-15-2024 Hemoglobin and Hematocrit Hemoglobin and Hematocrit Lab Routine Daily for 1 Weeks starting 07/09/2024 until 07/15/2024, 3 completed [facility] Comment on above: Daily for [address] arting 07/09/2024 until 07/15/2024, 3 completed MG Breast - bilatera l Diagnostic [facility] Oxygen therapy [[facility]] Initiate Oxygen Therapy Protocol Respiratory Care Routine As Needed until discontinued starting 07/08/2024 [facility] Comment on above: As Needed until disc ontinued starting 07/08/2024 Spirometry panel Incentive jesse metry Respiratory Care Routine Every 2hr while awake until discontinued starting 07/06/2024 [facility] Work Phone: Comment on above: Every 2hr while awak e until discontinued starting 07/06/2024 Spirometry panel Incentive jesse metry Respiratory Care Routine Every 2hr while awake until discontinued starting 07/08/2024 [facility] Comment on above: Every 2hr while awak e until discontinued starting 07/08/2024 [facility] Payers Date Payer Category Payer Unknown [id number] 2023 Unknown 2022 Blue Cross Blue [id number] 2019 Unknown [id number] 2015 Unknown [id number] 1960 [facility] [id number] 1960 Unknown [id number] 93 1959 Unknown [id number] [id number] 93 1959 Unknown [id number] 2.16.840.1.465488.3.579.2.5 93 1959 Unknown [id number] 2.16.840.1.473612.3.579.2.5 93 1959 Unknown [id number] 2.16.840.1.722713.3.579.2.5 93 1959 Unknown [id number] 2.16.840.1.840475.3.579.2.5 93 1959 Unknown [id number] 2.16.840.1.794806.3.579.2.1 96 1959 Unknown [id number] 2.16.840.1.949735.3.579.2.1 96 1959 Unknown [id number] 2.16.840.1.025272.3.579.2.1 96 1959 Unknown [id number] 2.16.840.1.976519.3.579.2.1 96 1959 Unknown [id number] 2.16.840.1.907770.3.579.2.1 96 1959 Unknown [id number] 2.16.840.1.261395.3.579.2.1 96 1959 Unknown [id number] 2.16.840.1.411233.3.579.2.1 96 1959 Unknown [id number] 2.16.840.1.731798.3.579.2.7 27 1959 Unknown [id number] 2.16.840.1.849633.3.579.2.9 3 Medicare Medicare [id number] Unknown [id number] [id number] 93 Unknown MMO [id number] Unknown [facility] [id number] Social History Date Type Detail Facility Start: 07-06-2024 Sex Assigned At [facility] Start: 1960 Sex Assigned At Female [facility] Tobacco smoking stat us AZIS Unknown if ever smoked [facility] Work Phone: Start: 06-04-2012 End: 06-25-2024 Sex Female (finding) [facility] Start: 07-06-2024 Tobacco smoking status NHIS Never smoked tobacco [facility] Start: 07-06-2024 Tobacco use and exposure Smokeless tobacco non-user [facility] Start: 07-09-2024 Alcoholic beverage intake Lifetime non-drinker (finding) [facility] Start: 07-06-2024 History of Social function [employer] Has the [employer], or [employer] threatened to shut off services in your home in past 12Mo No [facility] (I/We) worried eladio er (my/our) food would run out before (I/we) got money to buy more. Never true [facility] In the past 12 month s, has lack of transportation kept you from medical appointments or from getting medications? No [facility] Start: 1960 Sex assigned at Not on file [facility] Medical Equipment Procedure Code Equipment Code Equipment Original Text Equipment Identifier Dates Screw Spnl L45mm Dia6.5mm Post Thoracolumbosacral Co Chrom - [id number] Start: 07-08-2024 Screw Spnl L40mm Dia6.5mm Post Thoracolumbosacral Co Chrom - [id number] Start: 07-08-2024 Set Scr Spnl L6m m Dia5.5mm Ti Brk Off Svetlana W/ Detach Cdh - [id number] Start: 07-08-2024 Evan Spnl L35mm D ia5.5mm Ant Post Thoracolumbosacral Ti - [id number] Start: 07-08-2024 Clinical Notes 08-04-2022 to 07-11-2024 Bhavani Anderson RN - 07/11/2024 11:59 AM Jose Moreland MD - 07/11/2024 10:15 AM Berny Diane PA-C - 07/11/2024 6:57 AM Jose Moreland MD - 07/10/2024 7:10 PM EDTDischarge Instructions Note Date & Type Note Facility 07-11-2024 History of Present illness Narrative Pt discharged to private vehicle with all of her personal belongings via wheelchair by RN. All questions and concerns answered at the time of discharge. INTERNAL MEDICINE Progress Note 07/11/2024 10:15 AM Subjective: Admit Date: 07/06/2024 PCP: Robert Villasenor DO Interval History: D 3 post L3-5 bilateral laminectomy, partial medial facetectomies and foraminotomies of L3, L4, L5 nerve roots along with total facetectomies at L4-5 of the right for complete decompression of the right L5 nerve roots along with right L3-4 microdiscectomy and L4-5 posterior spinal fusion. Rt LE numbness Ambulating hallways +++ No HAUSER Objective: Vitals: BP 117/62 Pulse 88 Temp 98.6 F (37 C) (Oral) Resp 16 Ht 1.549 m (5' 1 ) Wt 79.4 kg (175 lb) SpO2 98% BMI 33.07 kg/m General appearance: alert and cooperative with exam HEENT: atraumatic Neck: no adenopathy, no carotid bruit, and no JVD Lungs: clear to auscultation bilaterally Heart: S1, S2 normal Abdomen: soft, non-tender; bowel sounds normal; no masses, no organomegaly Extremities: extremities normal, atraumatic, no cyanosis or edema Neurologic: Alert, oriented, thought content appropriate Back: drain in situ Medications: Scheduled Meds: glipiZIDE 10 mg Oral QAM AC insulin lispro 0-16 Units SubCUTAneous 4x Daily AC & HS naloxegol 12.5 mg Oral QAM AC sodium chloride flush 5-40 mL IntraVENous 2 times per day polyethylene glycol 17 g Oral Daily bisacodyl 5 mg Oral Daily sennosides-docusate sodium 1 tablet Oral BID gabapentin 200 mg Oral BID [Held by provider] atenolol 50 mg Oral Daily levothyroxine 125 mcg Oral Daily [Held by provider] lisinopril 5 mg Oral Daily clonazePAM 1 mg Oral Nightly citalopram 20 mg Oral Daily Continuous Infusions: dextrose sodium chloride 125 mL/hr at 07/08/242001 sodium chloride Lab Results: CBC: Recent Labs 07/09/24 0539 07/10/24 0658 07/11/24 0643 HGB 11.9* 10.0* 10.8* BMP: Recent Labs 07/09/24 0539 07/09/24 0819 07/10/24 0658 07/11/24 0643 NA 136 -- 135 135 K 5.8* 4.7 4.6 4.7 CL 103 -- 101 103 CO2 23 -- 26 22 BUN 21 -- 24* 16 CREATININE 1.1* -- 1.1* 1.0* GLUCOSE 197* -- 198* 166* Hepatic: No results for input(s): AST , ALT , BILITOT , ALKPHOS in the last 72 hours. Invalid input(s): ALB INR: No results for input(s): INR in the last 72 hours. Assessment and Plan: L3-L5 spinal stenosis with neurogenic claudication/radiculopathy L3-L4 herniated nucleus polyposis. L4-L5 spondylolisthesis grade 1. Hypertension Diabetes mellitus type 2. Hypothyroidism Hyperkalemia, received lokelma Cont Analgesics. Cont oral hypoglycemics /SSI Stable for dc. F/up orthop as OP. Oluremi A Kole, MD, Department of Orthopedic Surgery Spine Service Attending Progress Note Subjective: POD#3, Patient doing well. No new issues. + BM Hypotension last night. Vitals VITALS: BP (!) 120/58 Pulse 74 Temp 98.6 F (37 C) (Oral) Resp 16 Ht 1.549 m (5' 1 ) Wt 79.4 kg (175 lb) SpO2 94% BMI 33.07 kg/m 24HR INTAKE/OUTPUT: Intake/Output Summary (Last 24 hours) at 07/11/2024 0657 Last data filed at 07/11/2024 0406 Gross per 24 hour Intake 740 ml Output 180 ml Net 560 ml URINARY CATHETER OUTPUT (Soriano): DRAIN/TUBE OUTPUT: Closed/Suction Drain Right;Midline Back Accordion-Output (ml): 50 ml PHYSICAL EXAM: Orientation: alert and oriented to person, place and time Incision: dressing in place, clean, dry, intact Lower Extremity Motor : quadriceps, extensor hallucis longus, dorsiflexion, plantarflexion 5/5 bilaterally Lower Extremity Sensory: Intact L1-S1 Flatus: positive ABNORMAL EXAM FINDINGS: none LABS: HgB: Lab Results Component Value Date/Time HGB 10.0 07/10/2024 06:58 AM ASSESSMENT AND PLAN: Post operative day 3 status post L3-5 decompression and L4-5 fusion 1: Monitor labs and drain output 2: Activity Level: as tolerated 3: Pain Control: good 4: Discharge Planning: today with home health. If unable to obtain home health for drain. Patient will empty drain and return to office Tuesday for drain removal. Berny Lewis PA-C INTERNAL MEDICINE Progress Note 07/10/2024 7:10 PM Subjective: Admit Date: 07/06/2024 PCP: Robert Villasenor DO Interval History: D 2 post L3-5 bilateral laminectomy, partial medial facetectomies and foraminotomies of L3, L4, L5 nerve roots along with total facetectomies at L4-5 of the right for complete decompression of the right L5 nerve roots along with right L3-4 microdiscectomy and L4-5 posterior spinal fusion. Rt LE weakness No HAUSER Objective: Vitals: BP 108/60 Pulse 78 Temp 98.6 F (37 C) (Oral) Resp 18 Ht 1.549 m (5' 1 ) Wt 79.4 kg (175 lb) SpO2 94% BMI 33.07 kg/m General appearance: alert and cooperative with exam HEENT: atraumatic Neck: no adenopathy, no carotid bruit, and no JVD Lungs: clear to auscultation bilaterally Heart: S1, S2 normal Abdomen: soft, non-tender; bowel sounds normal; no masses, no organomegaly Extremities: extremities normal, atraumatic, no cyanosis or edema Neurologic: Alert, oriented, thought content appropriate Back: drain in situ Medications: Scheduled Meds: [START ON 07/11/2024] glipiZIDE 10 mg Oral QAM AC insulin lispro 0-16 Units SubCUTAneous 4x Daily AC & HS naloxegol 12.5 mg Oral QAM AC sodium chloride flush 5-40 mL IntraVENous 2 times per day polyethylene glycol 17 g Oral Daily bisacodyl 5 mg Oral Daily sennosides-docusate sodium 1 tablet Oral BID gabapentin 200 mg Oral BID [Held by provider] atenolol 50 mg Oral Daily levothyroxine 125 mcg Oral Daily [Held by provider] lisinopril 5 mg Oral Daily clonazePAM 1 mg Oral Nightly citalopram 20 mg Oral Daily Continuous Infusions: dextrose sodium chloride 125 mL/hr at 07/08/242001 sodium chloride Lab Results: CBC: Recent Labs 07/09/24 0539 07/10/24 0658 HGB 11.9* 10.0* BMP: Recent Labs 07/09/24 0539 07/09/24 0819 07/10/24 0658 NA 136 -- 135 K 5.8* 4.7 4.6 CL 103 -- 101 CO2 23 -- 26 BUN 21 -- 24* CREATININE 1.1* -- 1.1* GLUCOSE 197* -- 198* Hepatic: No results for input(s): AST , ALT , BILITOT , ALKPHOS in the last 72 hours. Invalid input(s): ALB INR: No results for input(s): INR in the last 72 hours. Assessment and Plan: L3-L5 spinal stenosis with neurogenic claudication/radiculopathy L3-L4 herniated nucleus polyposis. L4-L5 spondylolisthesis grade 1. Hypertension Diabetes mellitus type 2. Hypothyroidism Hyperkalemia, received lokelma Cont Analgesics. Resume oral hypoglycemics /SSI PT/OT SCD amlabs Jose Sharif MD, [facility] INPATIENT PHYSICAL THERAPY EVALUATION [facility]THOP[facility] 7K - [id number] Discharge Recommendations: Continue to assess pending progress, Home with Home health PT Equipment Recommendations: No Time In: 1000 Time Out: 1020 Timed Code Treatment Minutes: 12 Minutes Minutes: 20 Date: 07/10/2024 Patient Name: Carroll Fuentes, Gender: female : 1960 (64 y.o.) Referring Practitioner: Dank Sams PA Diagnosis: Intractable back pain Additional Pertinent Hx: Per EMR The patient is a 64 y.o. female who presents with presented with 1 week history of acute onset pain in the right lower extremity involving the lower back. She endorses a prior history of chronic lower back pain. Patient reported a fall associated with the right leg weakness. She denies bowel or urinary incontinence. She was evaluated at [facility], she had an MRI of the lumbar spine completed which showed a large disc herniation at L3-L4 with moderate stenosis at L5. Pt is status post L3-5 decompression and L4-[address] Meehan on 07/08 Restrictions/Precautions: Restrictions/Precautions: Fall Risk, General Precautions, Surgical Protocols Spinal Precautions: No Bending, No Lifting, No Twisting Other Position/Activity Restrictions: monitor R knee buckling Required Braces or Orthoses?: Yes Spinal: Lumbar Corset Subjective: Chart Reviewed: Yes Patient assessed for rehabilitation services?: Yes Family/Caregiver Present: No Subjective: OK to see pt per nursing. Pt in bed when PT arrived, agreeable to PT session. Reports she just got back into bed, however agreeable to PT session and wants back in bed following session. General: Overall Orientation Status: Within Normal Limits Orientation Level: Oriented X4 Vision: Impaired Vision Exceptions: Wears glasses for reading Hearing: Within functional limits Pain: 12/02: had pain meds prior to session Vitals: Vitals not assessed per clinical judgement, see nursing flowsheet Social/Functional History: Lives With: Spouse Type of Home: House Home Layout: One level Home Access: Stairs to enter with rails Entrance Stairs - Number of Steps: 2 ZACH Home Equipment: Walker - Rolling, Cane, Wheelchair - Manual Bathroom Shower/Tub: Tub/Shower unit, Walk-in shower Bathroom Toilet: Handicap height Bathroom Equipment: Shower chair Bathroom Accessibility: Accessible Prior Level of Assist for ADLs: Independent Prior Level of Assist for Homemaking: Independent Homemaking Responsibilities: Yes Prior Level of Assist for Transfers: Independent Prior Level of Assist for Ambulation: Independent household ambulator, with or without device Has the patient had two or more falls in the past year or any fall with injury in the past year?: Yes 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 Nakia alonso in standing Bed Mobility: Rolling to Right: Stand By Assistance, X 1, with head of bed raised, with rail, with verbal cues Supine to Sit: Stand By Assistance, X 1, with head of bed raised, without rail, with verbal cues Sit to Supine: Minimal Assistance, X 1 Pt had brace on bed when PT arrived, educated on use of brace when OOB and with mobility. Brace was also upside down when PT arrived. Assist for B LE to place back in bed Transfers: Sit to Stand: Stand By Assistance, X 1 Stand to Sit:Stand By Assistance, X 1 RW for support, slow transitions Ambulation: Stand By Assistance, Contact Guard Assistance, X 1, with cues for safety, with verbal cues Distance: 80 feet Surface: Level Tile Device: Rolling Walker Gait Deviations: Slow Sidra, Decreased Step Length Bilaterally, Decreased Gait Speed, and Increased reliance on assistive device Slow pace, 1 time R knee buckled, pt able to self correct Stairs: Not Tested Exercise: None Functional Outcome Measures: [facility] (6 CLICK) BASIC MOBILITY AM-[facility] Inpatient [facility] : [facility] T-[facility] Score : 42.13 Modified Francoise: Premorbid Functional Status: Not Applicable Current Functional Status: Not Applicable ASSESSMENT: Activity Tolerance: Patient tolerance of treatment:Good. Treatment Initiated: Treatment and education initiated within context of evaluation. Evaluation time included review of current medical information, gathering information related to past medical, social and functional history, completion of standardized testing, formal and informal observation of tasks, assessment of data and development of plan of care and goals. Treatment time included skilled education and facilitation of tasks to increase safety and independence with functional mobility for improved independence and quality of life. Assessment: Body Structures, Functions, Activity Limitations Requiring Skilled Therapeutic Intervention: Decreased functional mobility , Decreased endurance, Increased pain, Decreased balance, Decreased strength Assessment: Carroll Fuentes is a 64 y.o. female who presents with the deficits stated previously. Pt requires 1 person assist for functional tasks with use of walker for support. Pt cont to require skilled PT services to increase IND with functional tasks and progress towards PLOF to return to home environment safely. Therapy Prognosis: Good Requires PT Follow-Up: Yes Patient Education: . Patient Education Education Given To: Patient Education Provided: Plan of Care, Role of Therapy, Precautions, Transfer Training, Mobility Training, Equipment Education Method: Verbal Education Outcome: Verbalized understanding, Demonstrated understanding, Continued education needed Plan: Current Treatment Recommendations: Strengthening, Balance training, Safety education & training, Stair training, Functional mobility training, Gait training, Transfer training, Neuromuscular re-education, Equipment evaluation, education, & procurement, Patient/Caregiver education & training, Endurance training, Therapeutic activities, Home exercise program General Plan: (5x O) Goals: Patient Goals : return home with spouse Short Term Goals Time Frame for Short Term Goals: by discharge Short Term Goal 1: Pt will demo sit to/from stand transfers with LRAD with IND to return home safely. Short Term Goal 2: Pt will demo IND with bed mobility tasks with log roll technique to return home safely. Short Term Goal 3: Pt will demo S for gait for >200 feet with RW to return home safely. Short Term Goal 4: Pt will demo S for stair negotiation with rail for support to return home safely. Short Term Goal 5: Pt will demo S for car transfers with good technique/recall to progress with mobility. Muck Operator Goals Time Frame for Muck Operator Goals : NA due to short ELOS Following session, patient left in safe position with all fall risk precautions in place. Pt in bed following session, all needs and call light in reach, alarm on. [facility] Occupational Therapy Daily Note Discharge Recommendations: Home with Home Health OT Equipment Recommendations: No Monitor need for LHAE. Time In: 0800 Time Out: 827 Timed Code Treatment Minutes: 28 Minutes Minutes: 28 Date: 07/10/2024 Patient Name: Carroll Fuentes, Gender: female Room: [address] [place] [address] : 1960 (64 y.o.) Referring Practitioner: Dank Sams PA Diagnosis: Intractable back pain Additional Pertinent Hx: Per EMR, The patient is a 64 y.o. female who presents with presented with 1 week history of acute onset pain in the right lower extremity involving the lower back. She endorses a prior history of chronic lower back pain. Patient reported a fall associated with the right leg weakness. She denies bowel or urinary incontinence. She was evaluated at [facility], she had an MRI of the lumbar spine completed which showed a large disc herniation at L3-L4 with moderate stenosis at L5. Pt is s/p L3-L5 DECOMPRESSION,L4-L5 FUSION by Dr. Meehan on 07/08/24. Restrictions/Precautions: Restrictions/Precautions: Fall Risk, General Precautions Required Braces or Orthoses Spinal: Lumbar Corset Position Activity Restriction Spinal Precautions: No Bending, No Lifting, No Twisting Social/Functional History: Lives With: Spouse Type of Home: House Home Layout: One level Home Access: Stairs to enter with rails Entrance Stairs - Number of Steps: 2 ZACH Home Equipment: Walker - Rolling, Cane, Wheelchair - Manual Bathroom Shower/Tub: Tub/Shower unit, Walk-in shower Bathroom Toilet: Handicap height Bathroom Equipment: Shower chair Bathroom Accessibility: Accessible Prior Level of Assist for ADLs: Independent Prior Level of Assist for Homemaking: Independent Homemaking Responsibilities: Yes Prior Level of Assist for Transfers: Independent Prior Level of Assist for Ambulation: Independent household ambulator, with or without device Has the patient had two or more falls in the past year or any fall with injury in the past year?: Yes 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 Patient pleasant and cooperative throughout session. PAIN: 10/02: Vitals: Vitals not assessed per clinical judgement, see nursing flowsheet COGNITION: WFL ADL: Grooming: Modified Independent. Hair care seated in bedside chair Upper Extremity Dressing: Minimal Assistance. Carroll/doff house robe Lower Extremity Dressing: Minimal Assistance. With teacher music in order to carroll/doff hospital shorts with verbal/visual cues to complete, demonstrating good understanding. Footwear Management: Supervision, X 1, with verbal cues , and with increased time for completion. Utilized teacher music/sock aid in order to doff/carroll B socks . Patient educated how to obtain LHAE, verbalizing understanding BED MOBILITY: Not Tested TRANSFERS: Sit to Stand: Stand By Assistance, X 1, with increased time for completion, to/from chair with arms. Stand to Sit: Stand By Assistance, X 1, with increased time for completion, to/from chair with arms. FUNCTIONAL MOBILITY: Assistive Device: Rolling Walker Assist Level: Stand By Assistance, X 1, and with increased time for completion. Distance: Household distances within unit Steady pace, 1 LOB however patient able to self correct with SBA ADDITIONAL ACTIVITIES: Patient able to identify 3/3 spinal precautions independently and demonstrate appropriately throughout session. Functional Outcome Measures: -[facility] Inpatient Daily Activity Raw Score: 19 ASSESSMENT: Activity Tolerance: Patient tolerance of treatment: Good treatment tolerance Plan: Times Per Week: 6x Times Per Day: Once a day Current Treatment Recommendations: Strengthening, Balance training, Functional mobility training, Endurance training, Safety education & training, Self-Care / ADL, Home management training, Patient/Caregiver education & training, Equipment evaluation, education, & procurement Education: Learners: Patient Role of OT, Plan of Care, ADL's, IADL's, Precautions, Equipment Education, Home Safety, Importance of Increasing Activity, Fall Prevention, and Assistive Device Safety Goals Short Term Goals Time Frame for Short Term Goals: Until discharge Short Term Goal 1: Pt will complete dynamic standing task x 5 minutes with 0 vcs for safety and Mod Indep to increase indep and endurance with all sinkside grooming. Short Term Goal 2: Pt will complete functional mobility to/from BR and HH distances with Mod Indep to increase indep with all toileting. Short Term Goal 3: Pt will complete LB dressing with Mod Indep with LHAE PRN to increase indep within home environment. Short Term Goal 4: Pt will complete showering/bathing task with Mod Indep to increase indep within home environment. Additional Goals?: No Muck Operator Goals Time Frame for Muck Operator Goals : No LTGs d/t short estimated length of stay. Following session, patient left in safe position with all fall risk precautions in place. Cosigned by Angela Dawkins, OT at 07/10/2024 8:57 AM EDT Department of Orthopedic Surgery Spine Service Attending Progress Note Subjective: POD#2, Patient sitting up in bed. Right leg weakness. Pain improved. Denies bladder or bowel dysfunction. No BM Vitals VITALS: BP (!) 131/59 Pulse 72 Temp 98.2 F (36.8 C) (Oral) Resp 16 Ht 1.549 m (5' 1 ) Wt 79.4 kg (175 lb) SpO2 98% BMI 33.07 kg/m 24HR INTAKE/OUTPUT: Intake/Output Summary (Last 24 hours) at 07/10/2024 0764 Last data filed at 07/10/2024 0654 Gross per 24 hour Intake 2615 ml Output 315 ml Net 2300 ml URINARY CATHETER OUTPUT (Soriano): DRAIN/TUBE OUTPUT: Closed/Suction Drain Right;Midline Back Accordion-Output (ml): 80 ml PHYSICAL EXAM: Orientation: alert and oriented to person, place and time Incision: dressing in place, clean, dry, intact Lower Extremity Motor : quadriceps, extensor hallucis longus, dorsiflexion, plantarflexion 5/5 bilaterally Lower Extremity Sensory: Intact L1-S1 Flatus: positive ABNORMAL EXAM FINDINGS: none LABS: HgB: Lab Results Component Value Date/Time HGB 10.0 07/10/2024 06:58 AM ASSESSMENT AND PLAN: Post operative day 2 status post L3-5 decompression and L4-5 fusion 1: Monitor labs and drain output 2: Activity Level: as tolerated 3: Pain Control: good 4: Discharge Planning: pending, likely tomorrow after BM Berny Lewis PA-C INTERNAL MEDICINE Progress Note 07/09/2024 6:24 PM Subjective: Admit Date: 07/06/2024 PCP: Robert Villasenor, Interval History: D1 post L3-5 bilateral laminectomy, partial medial facetectomies and foraminotomies of L3, L4, L5 nerve roots along with total facetectomies at L4-5 of the right for complete decompression of the right L5 nerve roots along with right L3-4 microdiscectomy and L4-5 posterior spinal fusion. Rt LE weakness No HAUSER Objective: Vitals: BP (!) 106/54 Pulse 79 Temp 98.4 F (36.9 C) (Oral) Resp 16 Ht 1.549 m (5' 1 ) Wt 79.4 kg (175 lb) SpO2 95% BMI 33.07 kg/m General appearance: alert and cooperative with exam HEENT: atraumatic Neck: no adenopathy, no carotid bruit, and no JVD Lungs: clear to auscultation bilaterally Heart: S1, S2 normal Abdomen: soft, non-tender; bowel sounds normal; no masses, no organomegaly Extremities: extremities normal, atraumatic, no cyanosis or edema Neurologic: Alert, oriented, thought content appropriate Back: drain in situ Medications: Scheduled Meds: sodium chloride flush 5-40 mL IntraVENous 2 times per day polyethylene glycol 17 g Oral Daily bisacodyl 5 mg Oral Daily sennosides-docusate sodium 1 tablet Oral BID gabapentin 200 mg Oral BID atenolol 50 mg Oral Daily insulin lispro 0-4 Units SubCUTAneous 4x Daily AC & HS levothyroxine 125 mcg Oral Daily lisinopril 5 mg Oral Daily clonazePAM 1 mg Oral Nightly citalopram 20 mg Oral Daily Continuous Infusions: sodium chloride 125 mL/hr at 07/08/242001 sodium chloride dextrose Lab Results: CBC: Recent Labs 07/06/24204507/07/24 1030 07/09/24 0539 WBC 11.6* 8.6 -- HGB 13.8 13.5 11.9* PLT 274 236 -- BMP: Recent Labs 07/06/24204507/07/24 1030 07/09/24 0539 07/09/24 0819 NA 136 138 136 -- K 5.0 4.4 5.8* 4.7 CL 96* 103 103 -- CO2 26 21* 23 -- BUN 43* 33* 21 -- CREATININE 1.3* 1.0* 1.1* -- GLUCOSE 259* 172* 197* -- Hepatic: Recent Labs 07/06/242045 AST 23 ALT 24 BILITOT 0.4 ALKPHOS 65 INR: Recent Labs 07/06/242045 INR 1.02 Assessment and Plan: L3-L5 spinal stenosis with neurogenic claudication/radiculopathy L3-L4 herniated nucleus polyposis. L4-L5 spondylolisthesis grade 1. Hypertension Diabetes mellitus type 2. Hypothyroidism Hyperkalemia, received lokelma Cont Analgesics. cont blood pressure meds SSI Bmp/ H/H in am PT/OT Jose Sharif MD, MD [facility] PHYSICAL THERAPY MISSED TREATMENT NOTE [facility] 7K Date: 07/09/2024 Patient Name: Carroll Fuentes : 1960 (64 y.o.) Gender: female REASON FOR MISSED TREATMENT: Missed Treat. Attempted x3 today. 1st attempt, pt with tech on BSC and then requesting to eat breakfast. 2nd attempt, OT with pt. 3rd attempt, special education case manager in room to complete assessment. [facility] INPATIENT OCCUPATIONAL THERAPY [facility] 7K EVALUATION Discharge Recommendations: Continue to assess pending progress, Home with Home health OT Equipment Recommendations: No Monitor need for LHAE. Time In: 934 Time Out: 1016 Timed Code Treatment Minutes: 33 Minutes Minutes: 41 Date: 07/09/2024 Patient Name: Carroll Fuentes, Gender: female : 1960 (64 y.o.) Referring Practitioner: Dank Sams PA Diagnosis: Intractable back pain Additional Pertinent Hx: Per EMR, The patient is a 64 y.o. female who presents with presented with 1 week history of acute onset pain in the right lower extremity involving the lower back. She endorses a prior history of chronic lower back pain. Patient reported a fall associated with the right leg weakness. She denies bowel or urinary incontinence. She was evaluated at [facility], she had an MRI of the lumbar spine completed which showed a large disc herniation at L3-L4 with moderate stenosis at L5. Pt is s/p L3-L5 DECOMPRESSION,L4-L5 FUS[address] Dr[address] Meehan on 07/08/24. Restrictions/Precautions: Restrictions/Precautions: Fall Risk, General Precautions Required Braces or Orthoses Spinal: Lumbar Corset Position Activity Restriction Spinal Precautions: No Bending, No Lifting, No Twisting Subjective Chart Reviewed: Yes, Orders, Progress Notes, History and Physical, Imaging, Operative Notes Patient assessed for rehabilitation services?: Yes Subjective: RN okayed OT session. Upon arrival patient was sitting up in bed. Pt was agreeable to OT session. Perfect serve completed to ARI renner asking if Pt can ambulate without lumbar corset in room. ARI Renner okay with in room mobility without brace. RN notified about lumbar corset. RN reports she will order from [facility] today. Pain: 9/10: Back Vitals: Vitals not assessed per clinical judgement, see nursing flowsheet Social/Functional History: Lives With: Spouse Type of Home: House Home Layout: One level Home Access: Stairs to enter with rails Entrance Stairs - Number of Steps: 2 ZACH Home Equipment: Walker - Rolling, Cane, Wheelchair - Manual Bathroom Shower/Tub: Tub/Shower unit, Walk-in shower Bathroom Toilet: Handicap height Bathroom Equipment: Shower chair Bathroom Accessibility: Accessible Prior Level of Assist for ADLs: Independent Prior Level of Assist for Homemaking: Independent Homemaking Responsibilities: Yes Prior Level of Assist for Transfers: Independent Prior Level of Assist for Ambulation: Independent household ambulator, with or without device Has the patient had two or more falls in the past year or any fall with injury in the past year?: Yes 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 ADL: Grooming: Contact Guard Assistance. To complete hand hygiene standing at sink. Toileting: Contact Guard Assistance and with increased time for completion. Toilet Transfer: Contact Guard Assistance. From standard toilet . IADL: Not Tested BALANCE: Sitting Balance: Stand By Assistance. Sitting EOB. Standing Balance: Contact Guard Assistance. With 1-2 UE release. BED MOBILITY: Supine to Sit: Stand By Assistance, with head of bed flat, with increased time for completion Scooting: Stand By Assistance to scoot to EOB. TRANSFERS: Sit to Stand: Contact Guard Assistance, X 1, with increased time for completion, cues for hand placement. Stand to Sit: Contact Guard Assistance. FUNCTIONAL MOBILITY: Assistive Device: Rolling Walker Assist Level: Contact Guard Assistance and with increased time for completion. Distance: To and from bathroom and Within room Slow pace, No LOB. Activity Tolerance: Patient tolerance of treatment: Good treatment tolerance Functional Outcome Measures: AM-[facility] Inpatient Daily Activity Raw Score: 17 Modified Dare: Premorbid Functional Status: Not Applicable Current Functional Status: Not Applicable Assessment: This 64 year old female presents with intractable back pain. Pt demonstrates weakness, decreased balance, decrease safety awareness, decreased endurance. Pt requires skilled OT intervention to increase indep and safety with all self cares, transfers, mobility, and IADLs to return to PLOF. Without skilled OT intervention patient is at increased risk for falls, caregiver burden, and hospital readmission after discharge. Pt would benefit from OT at discharge. Performance deficits / Impairments: Decreased functional mobility , Decreased endurance, Decreased ADL status, Decreased strength, Decreased safe awareness, Decreased high-level IADLs, Decreased balance Prognosis: Good REQUIRES OT FOLLOW-UP: Yes Decision Making: Medium Complexity Treatment Initiated: Treatment and education initiated within context of evaluation. Evaluation time included review of current medical information, gathering information related to past medical, social and functional history, completion of standardized testing, formal and informal observation of tasks, assessment of data and development of plan of care and goals. Treatment time included skilled education and facilitation of tasks to increase safety and independence with ADL's for improved functional independence and quality of life. Patient Education: Patient Education Education Given To: Patient Education Provided: Role of Therapy;Plan of Care;Precautions;ADL Adaptive Strategies;Transfer Training Education Method: Demonstration;Verbal Barriers to Learning: None Education Outcome: Verbalized understanding;Continued education needed Plan: Times Per Week: 6x Times Per Day: Once a day Current Treatment Recommendations: Strengthening, Balance training, Functional mobility training, Endurance training, Safety education & training, Self-Care / ADL, Home management training, Patient/Caregiver education & training, Equipment evaluation, education, & procurement. See long-term goal time frame for expected duration of plan of care. If no long-term goals established, a short length of stay is anticipated. Goals: Patient goals : Go Home Short Term Goals Time Frame for Short Term Goals: Until discharge Short Term Goal 1: Pt will complete dynamic standing task x 5 minutes with 0 vcs for safety and Mod Indep to increase indep and endurance with all sinkside grooming. Short Term Goal 2: Pt will complete functional mobility to/from BR and HH distances with Mod Indep to increase indep with all toileting. Short Term Goal 3: Pt will complete LB dressing with Mod Indep with LHAE PRN to increase indep within home environment. Short Term Goal 4: Pt will complete showering/bathing task with Mod Indep to increase indep within home environment. Additional Goals?: No Halfway Goals Time Frame for Halfway Goals : No LTGs d/t short estimated length of stay. AM-P[facility] Inpatient Daily Activity Raw Score: 17 AM-PAC Inpatient ADL T-Scale Score : 37.26 Following session, patient left in safe position with all fall risk precautions in place. Order for back brace and face sheet faxed to [facility]. Department of Orthopedic Surgery Spine Service Attending Progress Note Subjective: POD#1, Patient sitting up in bed. Report N/T right leg same as pre-op. Pain improved. Denies bladder or bowel dysfunction. No BM Vitals VITALS: BP (!) 111/58 Pulse 82 Temp 97.7 F (36.5 C) (Oral) Resp 20 Ht 1.549 m (5' 1 ) Wt 79.4 kg (175 lb) SpO2 94% BMI 33.07 kg/m 24HR INTAKE/OUTPUT: Intake/Output Summary (Last 24 hours) at 07/09/2024 0657 Last data filed at 07/09/2024 0430 Gross per 24 hour Intake 500 ml Output 560 ml Net -60 ml URINARY CATHETER OUTPUT (Soriano): DRAIN/TUBE OUTPUT: Closed/Suction Drain Right;Midline Back Accordion-Output (ml): 160 ml PHYSICAL EXAM: Orientation: alert and oriented to person, place and time Incision: dressing in place, clean, dry, intact Lower Extremity Motor : quadriceps, extensor hallucis longus, dorsiflexion, plantarflexion 5/5 bilaterally Lower Extremity Sensory: Intact L1-S1 Flatus: positive ABNORMAL EXAM FINDINGS: none LABS: HgB: Lab Results Component Value Date/Time HGB 11.9 07/09/2024 05:39 AM ASSESSMENT AND PLAN: Post operative day 1 status post L3-5 decompression and L4-5 fusion 1: Monitor labs and drain output 2: Activity Level: as tolerated 3: Pain Control: good 4: Discharge Planning: pending Berny Lewis PA-C 1835 pt arrived to pacu, awakens to voice. Respirations unlabored on 2L NC. Sites CDI with [address] VSS. Pt states pain 6/10 at this time, medicated by [employer]IST 1840 pt resting, resp easy. VSS 1850 pt awakens to voice, states pain 5/10 and tolerable. VSS 1900 c/o pain 7/10, medicated with 50 mcg fentanyl 1904 no change in pain status, medicated with 50 mcg fentanyl 1910 pt resting, resp easy. VSS 191 pt resting, resp easy. VSS 1924 pt meets criteria for discharge from pacu at this time. Pt transported to [facility] in stable condition Patient to OR at this time. INTERNAL MEDICINE Progress Note 07/08/2024 1:23 PM Subjective: Admit Date: 07/06/2024 PCP: Robert Villasenor DO Interval History: LBP / spasms Rt LE weakness Objective: Vitals: BP (!) 126/53 Pulse 61 Temp 98.4 F (36.9 C) (Oral) Resp 16 Ht 1.549 m (5' 1 ) Wt 79.4 kg (175 lb) SpO2 95% BMI 33.07 kg/m General appearance: alert and cooperative with exam HEENT: Head: atraumatic Neck: no adenopathy, no carotid bruit, and no JVD Lungs: clear to auscultation bilaterally Heart: S1, S2 normal Abdomen: soft, non-tender; bowel sounds normal; no masses, no organomegaly Extremities: extremities normal, atraumatic, no cyanosis or edema Neurologic: Mental status: Alert, oriented, thought content appropriate Medications: Scheduled Meds: gabapentin 200 mg Oral BID atenolol 50 mg Oral Daily sodium chloride flush 5-40 mL IntraVENous 2 times per day insulin lispro 0-4 Units SubCUTAneous 4x Daily AC & HS levothyroxine 125 mcg Oral Daily lisinopril 5 mg Oral Daily clonazePAM 1 mg Oral Nightly citalopram 20 mg Oral Daily Continuous Infusions: sodium chloride dextrose Lab Results: CBC: Recent Labs 07/06/24204507/07/24 1030 WBC 11.6* 8.6 HGB 13.8 13.5 PLT 274 236 BMP: Recent Labs 07/06/24204507/07/24 1030 NA 136 138 K 5.0 4.4 CL 96* 103 CO2 26 21* BUN 43* 33* CREATININE 1.3* 1.0* GLUCOSE 259* 172* Hepatic: Recent Labs 03/14/25 2046 AST 23 ALT 24 BILITOT 0.4 ALKPHOS 65 INR: Recent Labs 07/06/242045 INR 1.02 Assessment and Plan: L3-L5 spinal stenosis with neurogenic claudication/radiculopathy L3-L4 herniated nucleus polyposis. L4-L5 spondylolisthesis grade 1. Hypertension Diabetes mellitus type 2. Hypothyroidism Cont Analgesics. cont blood pressure meds SSI Am labs Awaiting OR. Jose Sharif MD, MD Spiritual Health History and Assessment/Progress Note [facility] (P) Initial Encounter, , , Name: Carroll Fuentes Age: 64 y.o. Sex: female Language: Khmer Christian: Latter-Day Intractable back pain Date: 07/07/2024 Total Time Calculated: (P) 14 min Spiritual Assessment began in [facility] Referral/Consult From: (P) Nurse Encounter Overview/Reason: (P) Initial Encounter Service Provided For: (P) Patient Liliane, Belief, Meaning: Patient identifies as spiritual, is connected with a liliane tradition or spiritual practice, and has beliefs or practices that help with coping during difficult times Family/Friends No family/friends present Importance and Influence: Patient has spiritual/personal beliefs that influence decisions regarding their health Family/Friends No family/friends present Community: Patient is connected with a spiritual community and feels well-supported. Support system includes: Spouse/Partner, Children, and Liliane Community Family/Friends No family/friends present Assessment and Plan of Care: Patient lying in bed. Patient expressed her emotions and feelings with the toll of her back pain and facing surgery tomorrow. Patient discussed having a previous back surgery years ago and how she was relieved of pain by it. Patient is hopeful to have a similar outcome with relief of pain and strength in her leg again. Patient feels well supported by her hubby, he's a good one, and also finds support and stacey from her children and grandchildren. Patient reflected on the special relationship her granddaughter has with Jefe, especially since she was born on his birthday, and how she loves everything about the jew. Patient finds peace and hope in her liliane as a shinto and desires to have sacrament of the sick by a sweatband separator, before her surgery tomorrow afternoon. I told the patient that I will let the spiritual care team know. Offered patient words of encouragement, quoted Scripture, and prayed with the patient, at her request. Patient expressed gratitude. Made patient aware of margarine maker availability and support. Patient Interventions include: Facilitated expression of thoughts and feelings, Explored spiritual coping/struggle/distress, Affirmed coping skills/support systems, and Provided sacramental/rastafarian ritual Family/Friends Interventions include: No family/friends present Patient Plan of Care: Contact Liliane community living specialist for support or sacramental needs Family/Friends Plan of Care: No family/friends present documented in this encounter [facility] 07-11-2024 Hospital Discharge instructions Bhavani Anderson RN - 07/11/2024 9:47 AM EDT Follow up with office for drain removal on Thursday 07/13 at 11:40 am\ Back Surgery Activity No lifting, pushing, or pulling Up as tolerated at least 3-4 times per day. Up walking-helps to decrease the risk of blood clots Wear chpi hose as directed per your physician No driving until cleared by your physician Back Brace or abdominal binder If your physician prescribes a brace/abdominal binder, wear back brace at all times. May remove when in bed or bathing Follow all back precautions. Incision Care Keep back incision dry and intact. Apply clean dry dressing once a day. May shower if no drainage from your incision-unless otherwise directed per your physician No tub baths-no soaking of incision-no swimming No heaving lifting of more than 5 lbs/or as directed per your physician Diet Increase Fluid/Water intake, eat foods high in fiber; fruits and vegetables to help to prevent constipation Examples of foods high in fiber Vegetables All vegetables, especially asparagus, [place] sprouts, broccoli, [place] sprouts, cabbage, carrots, cauliflower, celery, corn, greens, green beans, green pepper, onions, peas, potatoes (with skin), snow peas, spinach, squash, sweet potatoes, tomatoes, zucchini For maximum fiber intake, eat the peels of fruits and vegetables just be sure to wash them well first. Fruits All fruits, especially apples, berries, grapefruits, mangoes, nectarines, oranges, peaches, pears, dried fruits (figs, dates, prunes, raisins) Choose raw fruits and vegetables over juice, cooked, or canned raw fruit has more fiber. Dried fruit is also a good source of fiber. Some of the common symptoms of a surgical site infection are: Symptoms in the area where the surgery took place: Redness Drainage Pus Pain Swelling Bad smell Prevention of surgical site infection: Make sure that your healthcare providers clean their hands before examining you - either with soap and water or an alcohol-based hand rubs. Family and friends who visit you should not touch the surgical wound or dressings. Family and friends should clean their hands with soap and water or an alcohol-based hand rub before and after visiting you. If you do not see them clean their hands, ask them to clean their hands. Wash hands frequently Do not allow pet to sleep in the bed with you until your incision is completely healed. Keep bed sheets clean If you are taking medications, follow these general guidelines: Take your medication as directed. Do not change the amount or the schedule. Do not stop taking them without talking to your doctor. Do not share them. Know what the results and side effects are. Report them to your doctor. Some drugs can be dangerous when mixed. Talk to a doctor or pharmacist if you are taking more than one drug. This includes [id number] medication and herb or dietary supplements. Plan ahead for refills so you do not run out. Call Your Doctor If Any of the Following Occurs It is important for you to check your recovery once you leave the hospital. That way, you can alert your doctor to any problems immediately. If any of the following occur, call your doctor: Signs of infection, including fever, chills, redness, swelling, increasing pain, excessive bleeding, or discharge from the incision site The stitches or ramirez come apart at the incision site Nausea and/or vomiting that you can't control with the medications you were given after surgery, or which persist for more than two days after discharge from the hospital Pain that you can't control with the medications you've been given Cough shortness of breath, or chest pain Joint pain, fatigue, stiffness, rash, or other new symptoms Numbness, tingling, pain, or weakness, especially in the arms, hands, legs, or feet Pain, swelling in your feet, legs, or calves Loss of bladder or bowel function Pain, burning, urgency, frequency of urination, or persistent blood in the urine In case of an emergency call 911 Refer to medication education sheets for general information and possible side effects documented in this encounter [facility] 07-08-2024 Note PROCEDURE: XR LUMBAR SPINE 1 VW CLINICAL [...] loss of vertebral body height is seen. [facility] 07-08-2024 Note PROCEDURE: XR LUMBAR SPINE 1 VW CLINICAL [...] by: Sivakumar Betts MD 07/08/24 Final result [facility] 06-25-2024 Evaluation note Diagnosis Onset Date Resolution Cervical spondylosis acute Gerald h 2024 10:04am Hypertension acute June 25 025 10:04am Hx of fusion of cervical spine resolved June 25, 2024 10:04am Cervical pain deleted June 25, 2024 10:04am Hypercholesterolemia acute Gerald 2024 2:57pm Hypertension acute July 04, 2024 2:57pm Hypothyroid acute July 04 2:57pm STEPHANIE (obstructive sleep apnea) acute July 04, 2024 2:57pm Type 2 diabetes mellitus with hyperglycemia acute July 04 2:57pm Preop exam for internal medicine noneactive July 04, 2024 2:57pm [facility] Work Phone: 1(419) 544-662302-07-2024 Evaluation note* Encounter Date Diagnosis Assessment Notes Treatment Notes Treatment Clinical Notes May, Autoimmune thyroiditis (ICD-10 - E06.3) May, Elevated cholesterol (ICD-10 - E78.00) May, Type 2 diabetes mellitus with hyperglycemia, without long-term current use of insulin (ICD-10 - E11.65) May, Primary hypertension (ICD-10 - I10) May, Intractable chronic migraine without aura and without status migrainosus (ICD-10 - G43.719) [facility] 01-15-2024 Evaluation note* Encounter Date Diagnosis Assessment Notes Treatment Notes Treatment Clinical Notes Apr, Intractable chronic migraine without aura and without status migrainosus (ICD-10 - G43.719) [facility] Other 01-08-2024 Evaluation note* Encounter Date Diagnosis Assessment Notes Treatment Notes Treatment Clinical Notes Apr, Intractable chronic migraine without aura and without status migrainosus (ICD-10 - G43.719) [facility] Other 01-05-2024 Evaluation note* Encounter Date Diagnosis [...] Begin Amitriptyline Stop Tizanidine. MRI cervical spine [facility] Other 08-31-2023 Evaluation note* Encounter Date Diagnosis Assessment Notes Treatment Notes Treatment Clinical Notes Nov, Primary hypertension (ICD-10 - I10) [facility] 08-28-2023 Evaluation note* Encounter Date Diagnosis Assessment Notes Treatment Notes Treatment Clinical Notes Nov, Adverse effect of smooth muscle relaxant, subsequent encounter (ICD-10 - T44.3X5D) Avoid combination of Klonopin and Zanaflex when scheduled emergency services professional. May want to cut back on Zanaflex. [...] Pain in left shoulder (ICD-10 - M25.512) [facility] Other 06-30-2023 Evaluation note* Encounter Date Diagnosis Assessment Notes Treatment Notes Treatment Clinical Notes Sep, Type 2 diabetes mellitus with hyperglycemia, without long-term current use of insulin (ICD-10 - E11.65) [facility] 06-05-2023 Evaluation note* Encounter Date Diagnosis Assessment Notes Treatment Notes Treatment Clinical Notes Sep, Candidiasis, intertriginous (ICD-10 - B37.2) [facility] 04-12-2023 Evaluation note* Encounter Date Diagnosis [...] prior to bedtime. Weight loss. Occasional Tums 12 Apr, 2023 Autoimmune thyroidit is (ICD-10 - E06.3) Euthyroid, TSH yearly Jul, Other specified hypothyroidism (ICD-10 - E03.8) [facility] Other Evaluation noteNo InformationNort Bon[employer] Other Evaluation noteNo assessment information available [facility] Work Phone: Evaluation note* Diagnosis Onset Date Resolution Status Cervical pain acute Cervical spondylosis acute Cervical pain acute Cervical spondylosis acute Painful lumpy right breast a cute [facility] Work Phone: Evaluation note* Diagnosis Intractable back pain- Primary Backache, unspecified Spinal stenosis of lumbar region with neurogenic claudication Spinal stenosis, lumbar region, with neurogenic claudication Primary hypertension Unspecified essential hypertension Type 2 diabetes mellitus, without long-term current use of insulin ([facility]) [facility] in this [facility] Narrative - Reported* Type Description Date [...] CATHETERIZATION 2016 Hospitalization History SEE SURIGCAL HX [facility] Other [facility] general Narrative - Reported* Type Description Date [...] arthroscopy 10/2022 Hospitalization History SEE SURIGCAL HX [facility] Other Reason for referral (narrative)* Reason Evaluation of right knee pain Diagnosis 1 Strain of right knee , subsequent encounter (S86.562K) Referral Organization [facility] [employer] Referring Provider First Name Robert Referring Provider Last Name Hamilton Referring Provider Specialty Internal Tx yoni Referred Provider Rishi Parker Jr Referred Provider Specialty Orthopedic S urgery Referral Priority Routine [facility] Other Reason for referral (narrative)* Reason Referral for neck pa in Diagnosis 1 Cervicalgia (M54.2) Diagnosis 2 Cervical spondylosis (M47.812) Referral Organization [facility] [employer] Referring Provider First Name Robert Referring Provider Last Name Hamilton Referring Provider Specialty Internal Tx yoni Referred Organization [facility] Referred Address [address], [place],[address] Referred Provider Specialty Pain Medicin e Referral Priority Routine General Notes Patient has hx of ce rvical discectomy and fusion and presented w/ persistent neck pain, which radiated upwards causing a headache. She is being referred for treatment with the pain clinic. Clinical Notes Include MRI [facility] Other Reason for visit Narrative* Auth/Cert Specialty Diagnoses / Procedures Referred By Jass adams Referred To Contact Diagnoses Intractable back pain large disc herniation Jose Sharif MD [address] [place] [address] Phone: tel: fax: [employer] [address] [place] [address] Referral ID Status Reason Start Date Expiration Date Visits Re quested Visits Authorized [id number] 1 1 [facility] Summary Purpose Family History No Family History Records Found Relationship Condition Age at Onset Recorded Date/T babar father Heart disease Unknown Diabetes mellitus Unknown sister Asthma Unknown Advance Directives No Advanced Directives Records Found Advance Directive Response Recorded Date/ Time Advance Directives No December 20, 2023 3:16pm Advance Directive Response Recorded Date/ Time Advance Directives No December 20, 2023 2:16pm Date Activated Date Inactivated Comments 07/06/2024 7:55 PM Healthcare Agents on File Name Relationship Healthcare Agent Relationshi p Communication Babatunde Fuentes Spouse Primary Decision Maker Chief Complaint and Reason for Visit Chief [...] DATE CREATED AUTHOR AUTHOR'S ORGANIZ ATION 07/04/2018 [facility] DATE CREATED AUTHOR AUTHOR'S ORGANIZ ATION 09/18/2020 [facility] DATE CREATED AUTHOR AUTHOR'S ORGANIZ ATION 08/27/[address] [facility] DATE CREATED AUTHOR AUTHOR'S ORGANIZ ATION 04/18/2024 [facility] DATE CREATED AUTHOR AUTHOR'S ORGANIZ ATION 06/23/2024 [facility] DATE CREATED AUTHOR AUTHOR'S ORGANIZ ATION 07/11/2024 [facility] REASON FOR VISIT (unrecogniz ed section [...] 20, 2023 End: December 20, 2023 Robert Villasenor DO Attending Provider Active Sta rt: December 20, 2023 End: December 20, 2023 Team Status: Active Member Role Status Dates Nikki Stanton MD Primary Care Provider Active S tart: December 27, 2023 Robert Villasenor DO Attending Provider Active Sta rt: December 27, 2023 Team Status: Active Member Role Status Dates Nikki Stanton MD Primary Care Provide r, Attending Provider Active Start: February 22, 2024 Team Status: Inactive Member Role Status Dates Nikki Stanton MD Primary Care Provider Active S tart: February 24, 2024 End: February 24, 2024 Robert Villasenor DO Attending Provider Active Sta rt: February 24, 2024 End: February 24, 2024 Team Status: Active Member Role Status Hakeem Villasenor DO Primary Care Provider Active Team Status: Active Member Role Status Hakeem Villasenor DO Primary Care Provide r, Attending Provider Active Start: May 31, 2024 Team Status: Active Member Role Status Hakeem Villasenor DO Primary Care Provide r, Attending Provider Active Start: June 01, 2024 Team Status: Inactive Member Role Status Hakeem Villasenor DO Primary Care Provide r, Attending Provider Active Start: June 25, 2024 End: June 25, 2024 Team Status: Active Member Role Status Hakeem Villasenor DO Primary Care Provide r, Attending Provider Active Start: June 27, 2024 Team Status: Inactive Member Role Status Hakeem Villasenor DO Primary Care Provide r, Attending Provider Active Start: July 04, 2024 End: July 04, 2024 Counselling Psychologist Relationship Specialty Start Date End Date Robert Villasenor DO [address] [place] [id number] PCP - General Internal Medicine 07/06/24 Goals (unrecognized section and content) Goals may be documented in a n alternate section Scheduled Active and Recently Administ ered Medications (unrecognized section and content) Medication Order 07/09/2024 07/10/2024 07/11/2024 albumin human 25% IV solution 25 g (COMPLETED) 25 g, IntraVENous, ONCE, 1 dose, On Tue07/11/24 at 0015, Administer over 60 Minutes, at 100 mL/hr, Infusion rate depends on indication and clinical situation. In emergencies, may administer as rapidly as necessary to improve clinical condition. After initial volume replacement: 5%: Do not exceed 2 to 4 mL/minute in patients with normal plasma volume; 5 to 10 mL/minute in patients with hypoproteinemia 25%: Do not exceed 1 mL/minute in patients with normal plasma volume; 2 to 3 mL/minute in patients with hypoproteinemia 0019 (New Bag - Provider: Chrissy Cuellar RN)0118 (Stopped - Provider: Chrissy Cuellar RN) atenolol (TENORMIN) tablet 50 mg 50 mg, Oral, DAILY, First dose on 07/07/24 at 1000, Until Discontinued, Hold for HR less then 60, On hold since Tue07/10/2024 at 1409 until manually unheld 0755 (Given - Provider: Irma Villagomez RN) 0843 (Given - Provider: Bhavani Anderson, FLETCHER)1409 (Held by provider - Provider: Jose Sharif MD - Reason: Other) 0900 (Automatically Held - Provider: Jose Sharif MD) bisacodyl (DULCOLAX) EC tablet 5 mg 5 mg, Oral, DAILY, First dose on 07/08/24 at 2015, Until Discontinued, Do not crush or break., Post-op 0755 (Given - Provider: Irma Villagomez RN) 0843 (Given - Provider: Bhavani Anderson, FLETCHER) 0840 (Not Given - Provider: Bhavani Anderson RN - Reason: Patient/family refused) ceFAZolin (ANCEF) 2,000 mg in sterile water 20 mL IV syringe (COMPLETED) 2,000 mg, IntraVENous, EVERY 8 HOURS, 2 doses, First dose on Tue07/09/24 at 0045, Last dose on Tue07/09/24 at 0845, Antimicrobial Indications: Surgical Prophylaxis, Administer over 5 mins. Reconstitute 2 g vial with 20 mL Sterile Water. Withdraw entire contents., Post-op 0105 (Given - Provider: Bijal Zavala RN)075 (Given - Provider: Irma Villagomez RN) citalopram (CELEXA) tablet 20 mg 20 mg, Oral, DAILY, First dose on Tue07/07/24 at 0900, Until Discontinued 754 (Given - Provider: Irma Villagomez RN) 842 (Given - Provider: Bhavani Anderson RN) 842 (Given - Provider: Bhavani Anderson RN) clonazePAM (KLONOPIN) tablet 1 mg 1 mg, Oral, NIGHTLY, First dose on Tue07/06/24 at 2200, Until Discontinued 2001 (Given - Provider: Sommer Alcala RN) 2055 (Given - Provider: Chrissy Cuellar RN) 2099 (Due) gabapentin (NEURONTIN) capsule 200 mg 200 mg, Oral, 2 TIMES DAILY, First dose on Tue07/07/24 at 1000, Until Discontinued 754 (Given - Provider: Irma Villagomez RN)2001 (Given - Provider: Sommer Alcala RN) 08 (Given - Provider: Bhavani Anderson, FLETCHER)2055 (Given - Provider: Chrissy Cuellar, FLETCHER) 08 (Given - Provider: Bhavani Anderson, FLETCHER)2100 (Due) glipiZIDE (GLUCOTROL) tablet 10 mg 10 mg, Oral, DAILY BEFORE BREAKFAST, First dose on Tue07/11/24 at 0700, Until Discontinued, Substituted for glimepiride (AMARYL). 0634 (Given - Provider: Chrissy Cuellar RN) insulin lispro (HUMALOG,ADMELOG) injection vial 0-16 Units 0-16 Units, SubCUTAneous, 4 TIMES DAILY BEFORE MEALS & NIGHTLY, First dose on Tue07/10/24 at 1130, Until Discontinued, High Dose Corrective Algorithm Glucose: Dose: 70-179 No Insulin 180-249 4 Units 250-299 8 Units 300-349 12 Units Over 349 16 Units and notify physician Administer as soon as possible within 60 minutes of last blood glucose check 1109 (Given - Provider: Kimberlyn Chakraborty RN)1606 (Not Given - Provider: Bhavani Anderson RN - Reason: Order parameters not met)2056 (Given - Provider: Crhissy Cuellar, FLETCHER) 0713 (Not Given - Provider: Bhavani Anderson RN - Reason: Order parameters not met)1100 (Due)1700 (Due)2100 (Due) insulin lispro (HUMALOG,ADMELOG) injection vial 0-4 Units (CANCELED) 0-4 Units, SubCUTAneous, 4 TIMES DAILY BEFORE MEALS & NIGHTLY, First dose on Tue07/06/24 at 2100, Until Discontinued, Corrective Low Dose Algorithm Glucose: Dose: 70-179 No Insulin 180-249 1 Unit 250-299 2 Units 300-349 3 Units Over 349 4 Units and notify physician Administer as soon as possible within 60 minutes of last blood glucose check 0755 (Given - Provider: Irma Villagomez RN)1301 (Given - Provider: Irma Villagomez RN)1622 (Not Given - Provider: Irma Villagomez RN - Reason: Order parameters not met)2004 (Given - Provider: Sommer Alcala RN) 0843 (Given - Provider: Bhavani Anderson RN)1105 (Not Given - Provider: Bhavani Anderson RN - Reason: Other) levothyroxine (SYNTHROID) tablet 125 mcg 125 mcg, Oral, DAILY, First dose on Tue07/07/24 at 0700, Until Discontinued, Tube feeding (TF) interaction, obtain physician order to manage, recommend holding TF for 30 minutes before and after dose. 0656 (Given - Provider: Bijal Zavala RN) 0533 (Given - Provider: Sommer Alcala, FLETCHER) 0634 (Given - Provider: Chrissy Cuellar, FLETCHER) lisinopril (PRINIVIL;ZESTRIL) tablet 5 mg 5 mg, Oral, DAILY, First dose on Tue07/06/24 at 2015, Until Discontinued, On hold since Tue07/10/2024 at 1409 until manually unheld 0755 (Given - Provider: Irma Villagomez RN) 0843 (Given - Provider: Bhavani Anderson RN)1409 (Held by provider - Provider: Jose Sharif MD - Reason: Other) 0900 (Automatically Held - Provider: Jose Sharif MD) naloxegol (MOVANTIK) tablet 12.5 mg 12.5 mg, Oral, DAILY BEFORE BREAKFAST, First dose on Tue07/10/24 at 0700, Until Discontinued, Administer on an empty stomach at least 1 hour prior to or 2 hours after the first meal of the day. Avoid consumption of grapefruit or grapefruit juice during treatment. 0535 (Given - Provider: Sommer Alcala RN) 0634 (Given - Provider: Chrissy Cuellar, FLETCHER) polyethylene glycol (GLYCOLAX) packet 17 g 17 g, Oral, DAILY, First dose on Tue07/08/24 at 2014, Until Discontinued, Stir and dissolve one packet of powder (17 g) in any 4 to 8 ounces of beverage (cold, hot or room temperature) then drink, Post-op 0755 (Given - Provider: Irma Villagomez RN) 0843 (Given - Provider: Bhavani Anderson RN) 0840 (Not Given - Provider: Bhavani Anderson RN - Reason: Patient/family refused) sennosides-docusate sodium (SENOKOT-S) 8.6-50 MG tablet 1 tablet 1 tablet, Oral, 2 TIMES DAILY, First dose on Tue07/08/24 at 2100, Until Discontinued, Post-op 0755 (Given - Provider: Irma Villagomez, FLETCHER)2002 (Given - Provider: Sommer Alcala RN) 0843 (Given - Provider: Bhavani Anderson RN)2055 (Given - Provider: Chrissy Cuellar RN) 0840 (Not Given - Provider: Bhavani Anderson RN - Reason: Patient/family refused)2100 (Due) sodium chloride 0.9 % bolus 500 mL (COMPLETED) 500 mL (6.3 mL/kg), IntraVENous, at 247.9 mL/hr, Administer over 121 Minutes, ONCE, On Tue07/10/24 at 1430, For 1 dose 1414 (New Bag - Provider: Bhavani Anderson RN)1619 (Stopped - Provider: Bhavani Anderson RN) sodium chloride 0.9 % bolus 500 mL (COMPLETED) 500 mL (6.3 mL/kg), IntraVENous, at 247.9 mL/hr, Administer over 121 Minutes, ONCE, On Tue07/10/24 at 2014, For 1 dose 2024 (New Bag - Provider: Chrissy Cuellar RN)2225 (Stopped - Provider: Chrissy Cuellar RN) sodium chloride flush 0.9 % injection 5-40 mL 5-40 mL, IntraVENous, EVERY 12 HOURS SCHEDULED (2 times per day), First dose on Tue07/08/24 at 2100, Until Discontinued, For Line Patency: Peripheral IV = 5 mL; Midline or Central Line = 10 mL/lumen. If following IV push medication, administer flush at same rate as the IV push. Flush volume is determined by type of infusion therapy being given. For non-viscous solutions use: Peripheral IV = 5 mL Midline or Central Line = 10 mL/lumen For viscous solutions (i.e. blood components, parenteral nutrition, contrast media, or after obtaining blood sample) use: Peripheral IV = 10 mL Midline or Central Line = 20 mL/lumen, Post-op 0756 (Not Given - Provider: Irma Villagomez RN - Reason: IV Fluid Infusing)2109 (Given - Provider: Sommer Alcala RN) 0840 (Given - Provider: Bhavani Anderson, FLETCHER)2058 (Not Given - Provider: Chrissy Cuellar RN - Reason: IV Fluid Infusing) 0843 (Given - Provider: Bhavani Anderson RN)2100 (Due) sodium zirconium cyclosilicate (LOKELMA) oral suspension 10 g (COMPLETED) 10 g, Oral, ONCE, 1 dose, On Tue07/09/24 at 0800, Empty entire contents of the packet(s) into a glass with 3 tablespoons (45 mL) of water. Stir well and drink immediately; if powder remains in the glass, add water, stir and drink immediately; repeat until no powder remains. Administer other oral medications 2 hours before or 2 hours after dose. 0755 (Given - Provider: Irma Villagomez RN) Continuous Medication Order 07/09/2024 07/10/2024 07/11/2024 0.9 % sodium chloride infusion IntraVENous, at 125 mL/hr, CONTINUOUS, Starting on Tue07/08/24 at 2014, Post-op 1025 (Stopped - Prov ider: Bhavani Anderson RN) PRN Medication Order 07/09/2024 07/10/2024 07/11/2024 0.9 % sodium chloride infusion IntraVENous, at 5-250 mL/hr, PRN, if patient receiving piggyback infusions and maintenance fluids are not ordered OR KVO fluids to protect IV site / prevent frequent line interruptions/ long duration, Starting on Tue07/08/24 at 1950, For piggyback infusion, administer at same rate as piggyback for a total of 25 mL. Enter 25 mL into dose field and piggyback rate into rate field of order. If piggyback is infusing at a rate less than 100 mL/hr, enter 25 mL into dose field and 100 mL/hr into rate field of order. For KVO fluids, enter rate of 20 mL/hr or less into rate field of order., Post-op acetaminophen (TYLENOL) suppository 650 mg(Linked Group 1) 650 mg, Rectal, EVERY 6 HOURS PRN, Starting on Tue07/06/24 at 1948, Until Discontinued, Pain Mild (1-3), allowed for higher pain score per patient request, Fever, For temp greater than 100.4 F (38 C), Administer if oral route cannot be used. acetaminophen (TYLENOL) tablet 650 mg(Linked Group 1) 650 mg, Oral, EVERY 6 HOURS PRN, Starting on Tue07/06/24 at 1948, Until Discontinued, Pain Mild (1-3), allowed for higher pain score per patient request, Fever, For temp greater than 100.4 F (38 C), Maximum dose of acetaminophen is 4000 mg from all sources in 24 hours. acetaminophen (TYLENOL) tablet 650 mg 650 mg, Oral, EVERY 6 HOURS PRN, Starting on Tue07/08/24 at 1950, Until Discontinued, Pain Mild (1-3), allowed for higher pain score per patient request, Fever, Maximum dose of acetaminophen is 4000 mg from all sources in 24 hours., Post-op bisacodyl (DULCOLAX) suppository 10 mg 10 mg, Rectal, DAILY PRN, Starting on Tue07/08/24 at 1950, Until Discontinued, Constipation, Second line therapy for constipation, After 24 hours, if no result from first line PRN therapy, give second line therapy in combination with first line therapy., Post-op 1712 (Given - Provider: Bhavani Anderson, FLETCHER) cyclobenzaprine (FLEXERIL) tablet 10 mg 10 mg, Oral, 3 TIMES DAILY PRN, Starting on Tue07/08/24 at 1950, Until Discontinued, Muscle spasms, Post-op 0442 (Given - Provider: Bijal Zavala, RN)1302 (Given - Provider: Irma Villagomez, RN)2130 (Given - Provider: Sommer Alcala, RN) 0533 (Given - Provider: Sommer Alcala, RN)1702 (Given - Provider: Bhavani Anderson, FLETCHER) 0843 (Given - Provider: Bhavani Anderson, FLETCHER) dextrose 10 % infusion IntraVENous, at 100 mL/hr, CONTINUOUS PRN, if blood glucose remains LESS THAN 70 mg/dL after 2 dextrose 10% intravenous boluses or administration of glucagon, Starting on Tue07/10/24 at 1102, If blood glucose fails to stabilize after 2 dextrose 10% intravenous boluses or glucagon administration, start dextrose 10% infusion at 100 mL/hour and repeat blood glucose at 30 and 60 minutes. If blood glucose is GREATER THAN 70 mg/dL after 60 minutes, discontinue dextrose 10% infusion. dextrose bolus 10% 125 mL(Linked Group 2) 125 mL, IntraVENous, at 937.5 mL/hr, Administer over 8 Minutes, PRN, Other, Blood glucose 40 - 69 mg/dL and patient NOT ALERT or NPO, Starting on Tue07/10/24 at 1102, Repeat blood glucose in 15 minutes. If blood glucose remains LESS THAN 70 mg/dL, repeat treatment and recheck blood glucose in 15 minutes x 2. If using glycemic management system, dose as instructed per system. If blood glucose remains LESS THAN 70 mg/dL after 2 intravenous boluses start dextrose 10% at 100 mL/hour and notify provider. dextrose bolus 10% 250 mL(Linked Group 2) 250 mL, IntraVENous, at 937.5 mL/hr, Administer over 16 Minutes, PRN, Other, Blood glucose LESS THAN 40 mg/dL and patient NOT ALERT or NPO, Starting on Tue07/10/24 at 1102, Repeat blood glucose in 15 minutes. If blood glucose remains LESS THAN 70 mg/dL, repeat treatment and recheck blood glucose in 15 minutes x 2. If using glycemic management system, dose as instructed per system. If blood glucose remains LESS THAN 70 mg/dL after 2 intravenous boluses start dextrose 10% at 100 mL/hour and notify provider. glucagon injection 1 mg 1 mg, SubCUTAneous, PRN, Starting on Tue07/10/24 at 1102, Until Discontinued, Low blood sugar, Blood glucose LESS THAN 70 mg/dL and patient NOT ALERT or NPO and does not have IV access., After administration, attempt intravenous access and start dextrose 10% at 100 mL/hr. Repeat blood glucose in 15 minutes x 2 and notify provider. Reconstitute powder for injection by adding 1 mL of plastic battery assembler-supplied sterile diluent or sterile water for injection to a vial containing 1 mg of the drug, to provide solutions containing 1 mg/mL. Shake vial gently to dissolve. glucose chewable tablet 16 g 16 g (4 tablet), Oral, PRN, Starting on Tue07/10/24 at 1102, Until Discontinued, Low blood sugar, If blood glucose is LESS THAN 70 mg/dL and patient is alert and tolerating oral. Give 4 tablets (16g) Repeat blood glucose in 15 minutes. If blood glucose is LESS THAN 70 mg/dL, repeat treatment and recheck blood glucose in 15 minutes x 2. If blood glucose remains LESS THAN 70 mg/dL, notify provider. hydrALAZINE (APRESOLINE) injection 10 mg 10 mg, IntraVENous, EVERY 4 HOURS PRN, Starting on Tue07/06/24 at 1953, Until Discontinued, SBP > 160 HYDROcodone-acetaminophe n (NORCO) 5-325 MG per tablet 1 tablet(Linked Group 3) 1 tablet, Oral, EVERY 4 HOURS PRN, Starting on Tue07/06/24 at 1954, Until Discontinued, Pain Moderate (4-6), allowed for higher pain score per patient request, Maximum dose of acetaminophen is 4000 mg from all sources in 24 hours. 0442 (See Alternative - Provider: Bijal Zavala RN)0853 (See Alternative - Provider: Irma Villagomez RN)1302 (See Alternative - Provider: Irma Villagomez RN)1724 (See Alternative - Provider: Irma Villagomez RN)2130 (See Alternative - Provider: Sommer Alcala RN) 0134 (Given - Provider: Sommer Alcala RN)0532 (See Alternative - Provider: Sommer Alcala RN)0944 (See Alternative - Provider: Bhavani Anderson RN)1555 (See Alternative - Provider: Bhavani Anderson, FLETCHER)205 (See Alternative - Provider: Chrissy Cuellar RN) 0353 (Given - Provider: Chrissy Cuellar RN)0843 (See Alternative - Provider: Bhavani Anderson RN) HYDROcodone-acetaminophe n (NORCO) 5-325 MG per tablet 2 tablet(Linked Group 3) 2 tablet, Oral, EVERY 4 HOURS PRN, Starting on Tue07/06/24 at 1954, Until Discontinued, Pain Severe (7-10), Maximum dose of acetaminophen is 4000 mg from all sources in 24 hours. 0442 (Given - Provider: Bijal Zavala RN)0853 (Given - Provider: Irma Villagomez, FLETCHER)1302 (Given - Provider: Irma Villagomez, RN)1724 (Given - Provider: Irma Villagomez, RN)2130 (Given - Provider: Sommer Alcala RN) 0134 (See Alternative - Provider: Sommer Alcala RN)0532 (Given - Provider: Sommer Alcala RN)0944 (Given - Provider: Bhavani Anderson, FLETCHER)1555 (Given - Provider: Bhavani Anderson, FLETCHER)205 (Given - Provider: Chrissy Cuellar RN) 0353 (See Alternative - Provider: Chrissy Cuellar RN)0843 (Given - Provider: Bhavani Anderson, FLETCHER) magnesium hydroxide (MILK OF MAGNESIA) 400 MG/5ML suspension 30 mL 30 mL, Oral, DAILY PRN, Starting on Tue07/08/24 at 1950, Until Discontinued, Constipation, First line therapy for constipation., Post-op 0420 (Given - Provider: Sommer Alcala RN) magnesium sulfate 2000 mg in 50 mL IVPB premix 2,000 mg, IntraVENous, at 25 mL/hr, Administer over 2 Hours, PRN, Other, Magnesium Replacement, Starting on Tue07/06/24 at 1948, Mag Lab Replacement Action 1.4-1.6 mg/dL 2,000 mg Total Dose Given as 1,000 mg IVPB x 2 doses or 2,000 mg IVPB x 1 dose 1.0-1.3 mg/dL 4,000 mg Total Dose Given as 1,000 mg IVPB x 4 doses or 2,000 mg IVPB x 2 doses Less than 1.0 mg/dL CALL PHYSICIAN and give 4,000 mg Total Dose Given as 1,000 mg IVPB x 4 doses or 2,000 mg IVPB x 2 doses Infuse at 1,000 mg/hr Repeat Mag level 1 hour after final administration Protocol not for use in Patients with CrCl less than 30ml/min morphine (PF) injection 2 mg ()(Linked Group 4) 2 mg, IntraVENous, EVERY 2 HOURS PRN, Starting on Tue07/08/24 at 1950, Until Tue07/09/24 at 1948, Pain Moderate (4-6), allowed for higher pain score per patient request, If oral and IV narcotics ordered, use oral first and only use IV if oral is ineffective or cannot take oral. Do Not give oral and IV within 1 hour of each other unless specifically ordered., Post-op 06 (Given - Provider: Bijal Zavala RN)1108 (See Alternative - Provider: Irma Villagomez RN) morphine (PF) injection 2 mg(Linked Group 5) 2 mg, IntraVENous, EVERY 2 HOURS PRN, Starting on Tue07/10/24 at 190, Until Discontinued, Pain Moderate (4-6), allowed for higher pain score per patient request, If oral and IV narcotics ordered, use oral first and only use IV if oral is ineffective or cannot take oral. Do Not give oral and IV within 1 hour of each other unless specifically ordered. 1948 (Given - Provider: Chrissy Cuellar RN) morphine injection 4 mg ()(Linked Group 4) 4 mg, IntraVENous, EVERY 2 HOURS PRN, Starting on Tue07/08/24 at 1950, Until Tue07/09/24 at 1948, Pain Severe (7-10), If oral and IV narcotics ordered, use oral first and only use IV if oral is ineffective or cannot take oral. Do Not give oral and IV within 1 hour of each other unless specifically ordered., Post-op 0656 (See Alternative - Provider: Bijal Zavala RN)110 (Given - Provider: Irma Villagomez RN) morphine injection 4 mg(Linked Group 5) 4 mg, IntraVENous, EVERY 2 HOURS PRN, Starting on Tue07/10/24 at 190, Until Discontinued, Pain Severe (7-10), If oral and IV narcotics ordered, use oral first and only use IV if oral is ineffective or cannot take oral. Do Not give oral and IV within 1 hour of each other unless specifically ordered. 1948 (See Alternative - Provider: Chrissy Cuellar, FLETCHER) naloxone (NARCAN) injection 0.4 mg 0.4 mg, IntraVENous, PRN, Starting on Tue07/08/24 at 1811, Until Discontinued, Opioid Reversal ondansetron (ZOFRAN) injection 4 mg(Linked Group 6) 4 mg, IntraVENous, EVERY 6 HOURS PRN, Starting on Tue07/08/24 at 1950, Until Discontinued, Nausea, Vomiting, Administer if oral route cannot be used., Post-op ondansetron (ZOFRAN-ODT) disintegrating tablet 4 mg(Linked Group 6) 4 mg, Oral, EVERY 8 HOURS PRN, Starting on Tue07/08/24 at 1950, Until Discontinued, Nausea, Vomiting, Post-op potassium bicarb-citric acid (EFFER-K) effervescent tablet 40 mEq(Linked Group 7) 40 mEq, Oral, PRN, Starting on Tue07/06/24 at 1948, Until Discontinued, Per Potassium Replacement Protocol, Administer as alternative if patient unable to tolerate oral tablet. K Lab Replacement Action 3.1 to 3.5 40 mEq ORAL x 1 Under 3.1 Refer to IV replacement protocol Recheck K level in AM. Protocol not for use in patients with CrCl less than 30 mL/min. Do not chew or crush. Dissolve flavored tablets completely in 3 to 4 ounces of cold water; unflavored tablets may be dissolved in 3 to 4 ounces of cold juice. Patient to sip slowly over a 5 to 10 minute period. May further dilute if GI adverse effects occur. potassium chloride (KLOR-CON M) extended release tablet 40 mEq(Linked Group 7) 40 mEq, Oral, PRN, Starting on Tue07/06/24 at 1948, Until Discontinued, Potassium Replacement, May give alternative linked oral order (ordered as effervescent, packet, or liquid solution) if patient unable to tolerate tablet. K Lab Replacement Action 3.1 to 3.5 40 mEq ORAL x 1 Under 3.1 Refer to IV replacement protocol Recheck K level in AM. Protocol not for use in patients with CrCl less than 30 mL/min. Do not crush, chew, or suck on tablet. Tablet may also be broken in half and each half swallowed separately. potassium chloride 10 mEq/100 mL IVPB (Peripheral Line)(Linked Group 7) 10 mEq, IntraVENous, PRN, Starting on Tue07/06/24 at 1948, Until Discontinued, at 100 mL/hr, Potassium Replacement, K Lab Replacement Action 2.7 to 3.0 10 mEq IVPB x 6 doses (60 mEq Total) Under 2.7 CALL PROVIDER and administer 10 mEq IVPB x 6 doses (60 mEq Total) Infuse at 10 mEq/hr. Repeat Potassium lab 1 hour after final administration. Protocol not for use in patients with CrCl less than 30 mL/min. sodium chloride flush 0.9 % injection 5-40 mL 5-40 mL, IntraVENous, PRN, Starting on Tue07/08/24 at 1950, Until Discontinued, Line Care, After every IV line use, For Line Patency: Peripheral IV = 5 mL; Midline or Central Line = 10 mL/lumen. If following IV push medication, administer flush at same rate as the IV push. Flush volume is determined by type of infusion therapy being given. For non-viscous solutions use: Peripheral IV = 5 mL Midline or Central Line = 10 mL/lumen For viscous solutions (i.e. blood components, parenteral nutrition, contrast media, or after obtaining blood sample) use: Peripheral IV = 10 mL Midline or Central Line = 20 mL/lumen, Post-op Linked Groups Order Group 1: acetaminophen (TYLENOL) tablet 650 mgJump to med 650 mg, Oral, EVERY 6 HOURS PRN, Starting on Tue07/06/24 at 1948, Until Discontinued, Pain Mild (1-3), allowed for higher pain score per patient request, Fever, For temp greater than 100.4 F (38 C), Maximum dose of acetaminophen is 4000 mg from all sources in 24 hours. Or acetaminophen (TYLENOL) suppository 650 mgJump to med 650 mg, Rectal, EVERY 6 HOURS PRN, Starting on Tue07/06/24 at 1948, Until Discontinued, Pain Mild (1-3), allowed for higher pain score per patient request, Fever, For temp greater than 100.4 F (38 C), Administer if oral route cannot be used. Group 2: dextrose bolus 10% 125 mLJump to med 125 mL, IntraVENous, at 937.5 mL/hr, Administer over 8 Minutes, PRN, Other, Blood glucose 40 - 69 mg/dL and patient NOT ALERT or NPO, Starting on Tue07/10/24 at 1102, Repeat blood glucose in 15 minutes. If blood glucose remains LESS THAN 70 mg/dL, repeat treatment and recheck blood glucose in 15 minutes x 2. If using glycemic management system, dose as instructed per system. If blood glucose remains LESS THAN 70 mg/dL after 2 intravenous boluses start dextrose 10% at 100 mL/hour and notify provider. Or dextrose bolus 10% 250 mLJump to med 250 mL, IntraVENous, at 937.5 mL/hr, Administer over 16 Minutes, PRN, Other, Blood glucose LESS THAN 40 mg/dL and patient NOT ALERT or NPO, Starting on Tue07/10/24 at 1102, Repeat blood glucose in 15 minutes. If blood glucose remains LESS THAN 70 mg/dL, repeat treatment and recheck blood glucose in 15 minutes x 2. If using glycemic management system, dose as instructed per system. If blood glucose remains LESS THAN 70 mg/dL after 2 intravenous boluses start dextrose 10% at 100 mL/hour and notify provider. Group 3: HYDROcodone-acetaminophen (NORCO) 5-325 MG per tablet 1 tabletJump to med 1 tablet, Oral, EVERY 4 HOURS PRN, Starting on Tue07/06/24 at 1954, Until Discontinued, Pain Moderate (4-6), allowed for higher pain score per patient request, Maximum dose of acetaminophen is 4000 mg from all sources in 24 hours. Or HYDROcodone-acetaminophen (NORCO) 5-325 MG per tablet 2 tabletJump to med 2 tablet, Oral, EVERY 4 HOURS PRN, Starting on Tue07/06/24 at 1954, Until Discontinued, Pain Severe (7-10), Maximum dose of acetaminophen is 4000 mg from all sources in 24 hours. Group 4: morphine (PF) injection 2 mg ()Jump to med 2 mg, IntraVENous, EVERY 2 HOURS PRN, Starting on Tue07/08/24 at 1950, Until Tue07/09/24 at 1949, Pain Moderate (4-6), allowed for higher pain score per patient request, If oral and IV narcotics ordered, use oral first and only use IV if oral is ineffective or cannot take oral. Do Not give oral and IV within 1 hour of each other unless specifically ordered., Post-op Or morphine injection 4 mg ()Jump to med 4 mg, IntraVENous, EVERY 2 HOURS PRN, Starting on Tue07/08/24 at 1950, Until Tue07/09/24 at 1949, Pain Severe (7-10), If oral and IV narcotics ordered, use oral first and only use IV if oral is ineffective or cannot take oral. Do Not give oral and IV within 1 hour of each other unless specifically ordered., Post-op Group 5: morphine (PF) injection 2 mgJump to med 2 mg, IntraVENous, EVERY 2 HOURS PRN, Starting on Tue07/10/24 at 1909, Until Discontinued, Pain Moderate (4-6), allowed for higher pain score per patient request, If oral and IV narcotics ordered, use oral first and only use IV if oral is ineffective or cannot take oral. Do Not give oral and IV within 1 hour of each other unless specifically ordered. Or morphine injection 4 mgJump to med 4 mg, IntraVENous, EVERY 2 HOURS PRN, Starting on Tue07/10/24 at 1909, Until Discontinued, Pain Severe (7-10), If oral and IV narcotics ordered, use oral first and only use IV if oral is ineffective or cannot take oral. Do Not give oral and IV within 1 hour of each other unless specifically ordered. Group 6: ondansetron (ZOFRAN-ODT) disintegrating tablet 4 mgJump to med 4 mg, Oral, EVERY 8 HOURS PRN, Starting on Tue07/08/24 at 1950, Until Discontinued, Nausea, Vomiting, Post-op Or ondansetron (ZOFRAN) injection 4 mgJump to med 4 mg, IntraVENous, EVERY 6 HOURS PRN, Starting on Tue07/08/24 at 1950, Until Discontinued, Nausea, Vomiting, Administer if oral route cannot be used., Post- op Group 7: potassium chloride (KLOR-CON M) extended release tablet 40 mEqJump to med 40 mEq, Oral, PRN, Starting on Tue07/06/24 at 1948, Until Discontinued, Potassium Replacement, May give alternative linked oral order (ordered as effervescent, packet, or liquid solution) if patient unable to tolerate tablet. K Lab Replacement Action 3.1 to 3.5 40 mEq ORAL x 1 Under 3.1 Refer to IV replacement protocol Recheck K level in AM. Protocol not for use in patients with CrCl less than 30 mL/min. Do not crush, chew, or suck on tablet. Tablet may also be broken in half and each half swallowed separately. Or potassium bicarb-citric acid (EFFER-K) effervescent tablet 40 mEqJump to med 40 mEq, Oral, PRN, Starting on Tue07/06/24 at 1948, Until Discontinued, Per Potassium Replacement Protocol, Administer as alternative if patient unable to tolerate oral tablet. K Lab Replacement Action 3.1 to 3.5 40 mEq ORAL x 1 Under 3.1 Refer to IV replacement protocol Recheck K level in AM. Protocol not for use in patients with CrCl less than 30 mL/min. Do not chew or crush. Dissolve flavored tablets completely in 3 to 4 ounces of cold water; unflavored tablets may be dissolved in 3 to 4 ounces of cold juice. Patient to sip slowly over a 5 to 10 minute period. May further dilute if GI adverse effects occur. Or potassium chloride 10 mEq/100 mL IVPB (Peripheral Line)Jump to med 10 mEq, IntraVENous, PRN, Starting on Tue07/06/24 at 1948, Until Discontinued, at 100 mL/hr, Potassium Replacement, K Lab Replacement Action 2.7 to 3.0 10 mEq IVPB x 6 doses (60 mEq Total) Under 2.7 CALL PROVIDER and administer 10 mEq IVPB x 6 doses (60 mEq Total) Infuse at 10 mEq/hr. Repeat Potassium lab 1 hour after final administration. Protocol not for use in patients with CrCl less than 30 mL/min. FOR RECORDS PERTAINING TO PATIENTS WHO ARE [...] BE BASED ON THE PRIMARY CLINICAL RECORDS. [employer] provides no warranty or guarantee of the accuracy or completeness of information in this document.
--- NOTE | 2024-07-12 03:39 | ED_ITS ---
HPI HPI - General Adult General Chief complaint: Back Pain/Injury Stated complaint: BACK PAIN Time Seen by Provider: 07/12/24 03:24 Source: patient Mode of arrival: ambulance Limitations: no limitations History of Present Illness HPI narrative: 64-year-old female presents for back pain. She had back surgery just over 3 days ago for herniated disc. She has been on [place] at home but it has not been helping that much. No injury. Both of her legs hurt as well. No fever. She still has a drainage tube in place. The pain is severe and worse in certain positions. She also states that it feels like her hearing is through a hollow tube. Related Data Home Medications ?Medication ?Instructions ?Recorded ?Confirmed atenolol 50 mg tablet 50 mg PO DAILY 09/28/22 07/02/24 citalopram 40 mg tablet (Celexa) 40 mg PO DAILY 09/28/22 07/02/24 glimepiride 4 mg tablet 4 mg PO DAILY 09/28/22 07/02/24 levothyroxine 125 mcg tablet 125 mcg PO DAILY 09/28/22 07/02/24 (Synthroid) metformin 500 mg tablet 500 mg PO BID 09/28/22 07/02/24 pravastatin 40 mg tablet 40 mg PO DAILY 09/28/22 07/02/24 tizanidine 4 mg tablet 4 mg PO .hs muscle spasticity 09/28/22 07/02/24 clonazepam 1 mg tablet (Klonopin) 1.5 mg PO DAILY 05/18/23 07/02/24 rizatriptan 10 mg tablet (Maxalt) 10 mg PO Q2H PRN migraine headache 05/18/23 07/02/24 olmesartan 20 mg tablet 20 mg PO DAILY 06/06/23 07/02/24 etodolac 500 mg tablet 500 mg PO BID 05/09/24 07/02/24 Previous Rx's ?Medication ?Instructions ?Recorded gabapentin 100 mg capsule 200 mg (2 x 100 mg) PO BID #60 caps 06/30/24 hydrocodone 5 mg-acetaminophen 325 1 tab PO Q6H PRN pain #20 tabs 06/30/24 mg tablet polyethylene glycol 3350 17 17 g PO DAILY PRN constipation 06/30/24 gram/dose oral powder (Miralax) #510 grams prednisone 10 mg tablet See Rx Instructions .Route 07/02/24 .COMPLEX #18 tabs Allergies Allergy/AdvReac Type Severity Reaction Status Date / Time calcium (From DHEA) Allergy Severe respirator Verified 07/12/24 03:31 arrest calcium carbonate (From DHEA) Allergy Severe respirator Verified 07/12/24 03:31 arrest prasterone (DHEA) (From DHEA) Allergy Severe respirator Verified 07/12/24 03:31 arrest iodine Allergy Intermediate Unknown Verified 07/12/24 03:31 latex Allergy Intermediate Unknown Verified 07/12/24 03:31 meperidine (From Demerol) Allergy Intermediate Unknown Verified 07/12/24 03:31 sumatriptan (From Imitrex) Allergy Intermediate Unknown Verified 07/12/24 03:31 Opioid HPI Opioid Management Most Recent Opioid Data: Last Pain Scale 7 07/06/24 14:21 07/06/24 Ur Phencyclidine Scrn Negative (NEGATIVE) 12/17/22 11:00 11/24 09/14 Review of Systems ROS Narrative A ten point review of systems is negative except as noted above. PFSH PFS Medical History Shoulder pain, right ?M25.511 - Pain in right shoulder (ICD-10) Osteoarthritis ?M19.90 - Unspecified osteoarthritis, unspecified site (ICD-10) Low back pain ?M54.50 - Low back pain, unspecified (ICD-10) Neck pain ?M54.2 - Cervicalgia (ICD-10) TIA (transient ischemic attack) ?G45.9 - Transient cerebral ischemic attack, unspecified (ICD-10) Hearing deficit ?H91.90 - Unspecified hearing loss, unspecified ear (ICD-10) Acid reflux ?K21.9 - Gastro-esophageal reflux disease without esophagitis (ICD-10) Obesity ?E66.9 - Obesity, unspecified (ICD-10) Diabetes ?E11.9 - Type 2 diabetes mellitus without complications (ICD-10) Hypothyroid ?E03.9 - Hypothyroidism, unspecified (ICD-10) Sleep apnea ?G47.30 - Sleep apnea, unspecified (ICD-10) Irregular heart beat ?I49.9 - Cardiac arrhythmia, unspecified (ICD-10) High cholesterol ?E78.00 - Pure hypercholesterolemia, unspecified (ICD-10) Hypertension ?I10 - Essential (primary) hypertension (ICD-10) Surgical History H/O cosmetic surgery ?Z98.890 - Other specified postprocedural states (ICD-10) H/O thyroidectomy ?E89.0 - Postprocedural hypothyroidism (ICD-10) H/O lumbosacral spine surgery ?Z98.890 - Other specified postprocedural states (ICD-10) H/O operation on finger ?Z98.890 - Other specified postprocedural states (ICD-10) H/O carpal tunnel repair ?Z98.890 - Other specified postprocedural states (ICD-10) H/O arthroscopic knee surgery ?Z98.890 - Other specified postprocedural states (ICD-10) H/O: hysterectomy ?Z90.710 - Acquired absence of both cervix and uterus (ICD-10) Hx of appendectomy ?Z90.49 - Acquired absence of other specified parts of digestive tract (ICD- 10) H/O exploratory laparotomy ?Z98.890 - Other specified postprocedural states (ICD-10) H/O: ?Z98.891 - History of uterine scar from previous surgery (ICD-10) H/O shoulder surgery ?Z98.890 - Other specified postprocedural states (ICD-10) H/O cervical spine surgery ?Z98.890 - Other specified postprocedural states (ICD-10) S/P cataract extraction ?Z98.49 - Cataract extraction status, unspecified eye (ICD-10) Social History Little interest or pleasure in doing things: not at all Feeling down, depressed, or hopeless: not at all Exam Narrative Exam Narrative: Nurses note and vital signs reviewed and patient is not hypoxic. General: The patient appears in no apparent distress. Skin: Warm, dry, no pallor noted. There is no rash noted. Head: Normocephalic, atraumatic Eye: Normal conjunctiva, no drainage Ears, Nose, Mouth, and Throat: oral mucosa is moist. Nares patent. Cardiovascular: Regular Rate and Rhythm Respiratory: Patient is in no distress, no accessory muscle use, lungs are clear to auscultation, no wheezing, rales or rhonchi Back: Dressing in drainage tube are in place. No noted erythema. GI: Soft and nontender Musculoskeletal: The patient has no evidence of calf tenderness, no pitting edema, symmetrical pulses noted bilaterally Neurological: A&O normal speech Psychiatric: Cooperative Constitutional Vital Signs, click to edit/add: Last Vital Signs Temp 97.8 F 07/12/24 03:25 Pulse 75 07/12/24 03:25 Resp 18 07/12/24 03:25 BP 96/60 07/12/24 05:33 Pulse Ox 97 07/12/24 03:25 O2 Del Method Room Air 07/12/24 03:25 Course Vital Signs Vital signs: Vital Signs Temperature 97.8 F 07/12/24 03:25 Pulse Rate 75 07/12/24 03:25 Respiratory Rate 18 07/12/24 03:25 Blood Pressure 88/48 L 07/12/24 03:25 Pulse Oximetry 97 07/12/24 03:25 Oxygen Delivery Method Room Air 07/12/24 03:25 Temperature 97.8 F 07/12/24 03:25 Pulse Rate 75 07/12/24 03:25 Respiratory Rate 18 07/12/24 03:25 Blood Pressure 96/60 07/12/24 05:33 Pulse Oximetry 97 07/12/24 03:25 Oxygen Delivery Method Room Air 07/12/24 03:25 Medical Decision Making MDM Narrative Medical decision making narrative: Blood work is normal. The patient's believes that she took too much [place]. She has been quite drowsy and he has been having trouble getting her up and moving around, such as getting her to the bathroom. Her symptoms are consistent with overmedication with [place]. She is being observed here in the emergency department. Differential Diagnosis Differential Diagnosis: Overmedication, postoperative pain, dehydration Lab Data Lab results reviewed: Yes I reviewed the patient's lab results Labs: Lab Results 07/12/24 Range/Units 03:50 WBC 7.1 (4.0-11.0) 10^3/uL RBC 2.84 L (4.20-5.40) 10^6/uL Hgb 8.4 L (12.0-16.0) g/dL Hct 26.4 L (36.0-48.0) % MCV 93.0 (81.0-99.0) fL MCH 29.6 (26.7-34.0) pg MCHC 31.8 (29.9-35.2) g/dL RDW 12.9 (11.0-15.0) % Plt Count 168 (150-450) 10^3/uL MPV 10.0 (9.5-13.5) fL Neut % (Auto) 59.2 (43.0-75.0) % Lymph % (Auto) 27.2 (20.5-60.0) % [place] % (Auto) 8.0 (1.7-12.0) % Eos % (Auto) 3.4 (0.9-7.0) % Baso % (Auto) 0.4 (0.2-2.0) % Neut # (Auto) 4.2 (1.4-6.5) 10^3/uL Lymph # (Auto) 1.9 (1.2-3.8) 10^3/uL [place] # (Auto) 0.6 (0.3-0.8) 10^3/uL Eos # (Auto) 0.2 (0.0-0.7) 10^3/uL Baso # (Auto) 0.0 (0.0-0.1) 10^3/uL Abs Immat Gran (auto) 0.13 H (0.00-0.03) 10^3/uL Imm/Tot Granulo (auto) 1.8 H (0.0-0.5) % Sodium 137 (136-145) mmol/L Potassium 4.6 (3.5-5.1) mmol/L Chloride 102 (98-107) mmol/L Carbon Dioxide 24.7 (21.0-32.0) mmol/L Anion Gap 14.9 BUN 24.0 H (7.0-18.0) mg/dL Creatinine 1.94 H (0.55-1.02) mg/dL Est GFR ( Amer) 31 L (>=60 mL/min/1.73m^2) Est GFR (Non-Af Amer) 26 L (>=60 mL/min/1.73m^2) BUN/Creatinine Ratio 12.4 Glucose 203 H (74-106) mg/dL Calcium 8.6 (8.5-10.1) mg/dL Discharge Plan Discharge Patient Disposition: Still a Patient
[2024-07-12 04:04] LABS: Basophils Percent Auto 0.4 % (0.2-2.0); Eosinophils Absolute Auto 0.2 10^3/uL (0.0-0.7); Eosinophils Percent Auto 3.4 % (0.9-7.0); Hematocrit 26.4 % (36.0-48.0); Hemoglobin 8.4 g/dL (12.0-16.0); Immature Granulocytes Abs Auto 0.13 10^3/uL (0.00-0.03); Immature Granulocytes Pct Auto 1.8 % (0.0-0.5); Lymphocytes Absolute Auto 1.9 10^3/uL (1.2-3.8); Lymphocytes Percent Auto 27.2 % (20.5-60.0); Mean Corpuscular HGB Conc 31.8 g/dL (29.9-35.2); Mean Corpuscular Hemoglobin 29.6 pg (26.7-34.0); Monocytes Absolute Auto 0.6 10^3/uL (0.3-0.8); Neutrophils Absolute Auto 4.2 10^3/uL (1.4-6.5); Neutrophils Percent Auto 59.2 % (43.0-75.0); Platelet Count 168 10^3/uL (150-450); Red Blood Count 2.84 10^6/uL (4.20-5.40); Red Cell Distribution Width 12.9 % (11.0-15.0); White Blood Count 7.1 10^3/uL (4.0-11.0)
--- NOTE | 2024-07-12 04:05 | PC.NURSE ---
Patient to ED with c/o post op pain. She had laminectomy and discectomy on Tuesday, tonight having increased pain and worried for infection. There is a drain in place that has bloody drainage in it, no signs of infection near the observable operative site or site of drain insertion. Patient c/o her hearing sounding like everyone is speaking down a tunnel, not able to hear. comes into room, states that her symptoms began after she took her pills this evening. He says that she was okay all day, was up walking with her walker and able to function, then she tried to go to the bathroom and could not stand on her own, she was having delusionos and hallucinations and the issue with her hearing started. He thinks it is possible that she is getting too many narcotics
[2024-07-12 04:09] LABS: Anion Gap 14.9; BUN Creatinine Ratio 12.4; Calcium 8.6 mg/dL (8.5-10.1); Carbon Dioxide 24.7 mmol/L (21.0-32.0); Chloride 102 mmol/L (98-107); Estimated GFR (African America 31 (>=60 mL/min/1.73m^2); Estimated GFR (Non-African Ame 26 (>=60 mL/min/1.73m^2); Glucose 203 mg/dL (74-106); Potassium 4.6 mmol/L (3.5-5.1); Sodium 137 mmol/L (136-145)
[2024-07-12] MEDS: KETOROLAC TROMETHAMINE 30 MG/ML VIAL IVP (05:17)
[2024-07-12 05:33] VITALS: BP 96/60
== END 2024-07-12 07:23 | disposition home or self-care (01) ==
PROVIDERS: Emergency Provider Emergency Medicine; PCP Internal Medicine
DX: R40.0 Somnolence (principal); T40.605A Adverse effect of unspecified narcotics, initial encounter; Z98.890 Other specified postprocedural states; Z79.899 Other long term (current) drug therapy; Z90.710 Acquired absence of both cervix and uterus; Z90.49 Acquired absence of other specified parts of digestive tract
CPT/HCPCS: 36415; 80048; 85025; 96374; 99284; J1885

== ENCOUNTER 2024-07-18 09:34 | Outpatient (OUT) | payer OTHER, SELFPAY ==
--- OUTSIDE RECORDS SUMMARY | 2024-07-18 09:56 | XMS_ITS | CCD ---
Author Organization [facility] Care Team Providers Care 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 Name Role Phone REECE GARSIAIC New Admitting Unavailable SUN JENNA T Attending Unavailable LISANDRO MEEKS Consulting Unavailable SUN JENNA New Referring Unavailable Robert Villasenor Unavailable HAMILTON, DR NINO Admitting Unavailable [...] Unavailable Gieditis , Andrius Sachin Attending Unavailable Gieditis , Andrius Sachin Attending Unavailable Giedraitis , Andrius Sachin Attending Unavailable Giedraitis , Andvalentine Stephenson Attending Unavailable DEE, Raisa T Attending Unavailable Robert Villasenor DO Primary Care Provider TERA RTAN Referring Unavailable ROBERT VILLASENOR Primary Care Unavailable JOSE SHARIF Attending Unavailable JOSE SHARIF Admitting Unavailable ELOISE VELIZ Consulting Unavailable Allergies Allergy Classification Reported Allergen(s) Allergy Type Date of Onset Reaction(s) Facility (3 sources) Contrast media; Translations: [CONTRAST DYE] Propensity to adverse reactions to drug (disorder) 09-30-19 11 [facility] Repository (2 sources) HYDROmorphone; Translations: [HYDROMORPHONE (BULK)] Drug Allergy 08-17-19 17 [facility] Repository (20 sources) Latex; Translations: [LATEX] Propensity to adverse reactions to drug (disorder) 09-30-19 11 [facility] Repository (2 sources) Meperidine; Translations: [MEPERIDINE (PF)] [...] 10-24-19 13 [facility] Repository (20 sources) HYDROmorphone Drug Allergy 12-20-19 24 Unknown, Unknown Reaction [facility] (20 sources) Iodine; Translations: [iodine] Drug Allergy 10-24-19 13 Unknown, Unknown Reaction [facility] Repository (20 sources) Meperidine Drug Allergy 12-20-19 24 Unknown, Unknown Reaction [facility] (20 sources) SUMAtriptan Drug Allergy 12-20-19 24 [facility] (20 sources) Fluad Drug allergy 12-20-19 24 Unknown, Unknown Reaction [facility] (18 sources) DHEA Drug allergy 07-07-19 25 Anaphylaxis [facility] [employer] [facility] [employer] Other (2 sources) HYDROmorphone; Translations: [Dilaudid] Drug Allergy 10-24-19 13 [facility] Repository (1 source) Meperidine Drug Allergy 10-24-19 13 [facility] Repository (2 sources) Plasmin; Translations: [Imitrex] Drug Allergy 10-24-19 13 [facility] Repository (12 sources) influenza A virus (H1N1) antigen / influenza A virus (H3N2) antigen / influenza B virus antigen Drug Allergy 11-21-19 14 Comment:FLU VACCINE [employer] [facility] [employer] Other (12 sources) Contraindication to Flu Injection Propensity to adverse reactions 03-07-20 Comment:advers e rxn/side effects [employer] [facility] [employer] Other (3 sources) patient allergy list reviewed by nurse or physicia Propensity to adverse reactions 12-22-19 14 Comment:Done [employer] [facility] [employer] Other (5 sources) Calcium Drug Allergy 12-20-19 24 Unknown Reaction [facility] (5 sources) Calcium Carbonate Drug Allergy 12-20-19 24 Unknown Reaction [facility] (5 sources) prasterone (DHEA) Allergy to substance 12-20-19 24 Unknown Reaction [facility] (5 sources) Fluad Quadrivalent Allergy to substance 04-29-19 24 Comment:FLU VACCINE [facility] Comment on above: Onset Date: 11/21/19 14 (1 source) Meperidine; Translations: [Demerol HCl] Drug Allergy [facility] Repository (1 source) flu vaccines; Translations: [flu vaccines] Propensity to adverse reactions (disorder) [facility] Repository (1 source) Iodine Strong Propensity to adverse reactions to drug 07-07-19 H[facility] [employer] (1 source) Meperidine Drug Allergy 07-07-19 25 Other (See Comments) [facility] Medic[facility] Current Medications Medication Drug Class(es) Dates Sig (Normalized) Sig (Original) acetaminophen 325 mg oral tablet (2 sources) Start: 07-08-2024 Start: 07-06-2024 acetaminophen (TYLENOL) tablet 650 mg Acetaminophen / HYDROcodone (4 sources) Opioid Agonist Start: 07-06-2024 HYDROcodone-ac etaminophen (NORCO) 5-325 MG per tablet 1 tablet Start: 07-04-2024 take 1 tablet by fredrick th every four to six hours as needed for pain Hydrocodone-Acetaminophen 5-325 mg table t Active 1 TAB PO EVERY 4-6 HOURS as needed for pain 28 7 July 04, 2024 etodolac 500 mg oral tablet (18 sources) Nonsteroidal Anti-inflammatory Drug Start: 07-08-2024 take 1 tablet by mouth twice daily as needed for headache Etodolac 500 mg tablet Active 0 .ROUTE .COMPLEX 60 July 08, 2024 10:42am TAKE 1 TABLET ORALLY TWICE DAILY NEEDED FOR HEADACHE FOR 30 DAYS Start: 12-20-2023 End: 07-08-2024 take 1 tablet by mouth twice daily etodolac (LODINE) 500 MG tablet Take 1 tablet by mouth 2 times daily 06/06/2024 Suspended fluconazole 100 mg oral tablet (16 sources) [...] for injection by adding 1 mL of director of field service-supplied sterile diluent or sterile water for injection [...] Magnesium Aspart,Citrate,Ox ashutosh 400 mg magnesium capsule (3 sources) Start: 12-20-2023 take 1 capsule by mouth once daily Magnesium Aspart,Citrate,Oxid e 400 mg magnesium capsule Active 400 MG PO Daily December 20, 2023 12:00am Start: 12-20-2023 take 1 capsule by [facility] once daily Magnesium Aspart,Citrate,Oxide 400 mg magnesium [...] MOUTH WITH A MEAL TWICE DAILY Start: 10-13-2022 End: 03-28-2024 take 1 tablet by mouth twice daily Metformin 500 mg tablet Discontinued MG PO December 20, 2023 12:00am March 28, 2024 8:00am [employer] tablet with a meal Orally two times daily; Note: Source Status: Taking; Refills: 3; Provider: Hamilton Jones morphine (PF) injection 2 mg (1 source) Start: 07-10-2024 morphine (PF) injection 2 mg olmesartan medoxomil 20 mg oral tablet (20 sources) Angiotensin 2 Receptor Maria Esther Start: [...] 2024 1:00am March 28, 2024 9:29pm Start: 12-23-2022 End: 12-20-2023 take 1 tablet by mouth once daily Olmesartan 20 mg tablet Discontinued 20 MG PO Daily December 20, 2023 12:00am December 20, 2023 4:17pm ondansetron (ZOFRAN-ODT) disintegrating tablet 4 mg (1 source) Start: 07-08-2024 ondansetron (ZOFRAN-ODT) disintegrating tablet 4 mg polyethylene glycol 3350 18107 mg powder for oral solution (1 source) [...] Start: 08-04-2022 take 1 tablet by fredrick every twenty-four hours Pravastatin Sodium 20 MG [...] x3days. Suspended rizatriptan 10 mg oral tablet (12 sources) Serotonin-1b and Serotonin-1d Receptor Agonist Start: 12-20-2023 take 3 tablets by mouth every twenty-four hours as needed Rizatriptan (Maxalt) 10 mg tablet Active 10 MG PO EVERY 2-4 HOURS as needed December 20, 2023 12:00am do not exceed 3 doses per 24 hrs Start: 11-04-2022 take 1 tablet by fredrick th every two hours as needed for headache Maxalt-MEAL COOKER 10 MG 1 tablet Orally PRN headache, [...] (Normalized) Sig (Original) 20 ml albumin human, snf 250 mg/ml injection (1 source) Human Serum [...] hypoproteinemia amitriptyline hydrochloride 10 mg oral tablet (12 sources) Tricyclic Antidepressant Start: 12-20-2023 End: 12-20-2023 [...] 1 TABLET BY MOUTH ONCE DAILY Start: 08-04-2022 End: 03-28-2024 take 1 tablet by mouth once daily Atenolol 50 mg tablet Discontinued 50 MG PO Daily December 20, 2023 12:00am March 28, 2024 8:00am bisacodyl 5 mg delayed release oral tablet (2 sources) Stimulant Laxative Start: 07-08-2024 take 5 mg by mouth once daily 5 mg, Oral, DAILY, First dose on Tue07/08/24 at 2015, Until Discontinued, Do not crush or break., Post-op Start: 07-08-2024 take 10 mg rectal ro chitimacha once daily as needed for constipation 10 [...] dose on Tue07/07/24 at 0900, Until Discontinued Start: 10-22-2022 End: 10-18-2023 take 1 tablet by mouth once daily at bedtime Citalopram 40 mg tablet Discontinued 40 MG PO Daily at bedtime October 18, 2023 12:00am October 18, 2023 8:38am clonazePAM 0.5 mg oral tablet (20 sources) Benzodiazepine Start: 07-06-2024 take 1 mg by mouth once daily [...] Start: 09-30-2022 take 3 tablets by mo ut at bedtime clonazePAM 0.5 MG TAKE 3 TABLETS BY MOUTH AT BEDTIME for 30 days Sep, Active [facility] clonazePAM [...] Post-op docusate sodium 50 mg / sennosides, snf 8.6 mg oral tablet (1 source) Start: 07-08-2024 take 1 tablet by mouth twice daily 1 tablet, Oral, 2 TIMES DAILY, First dose on Tue07/08/24 at 2100, Until Discontinued, Post-op 2 ml fentaNYL 0.05 mg/ml injection (2 sources) Opioid Agonist Start: 07-08-2024 End: 07-08-2024 50 mcg, IntraVENous, EVERY 5 MIN PRN, 4 doses, Starting on Tue07/08/24 at 1902, Until Tue07/08/24 at 1949, Pain Severe (7-10), If oral [...] 125 mcg tablet Active 0 .ROUTE .COMPLEX 90 March 28, 2024 8:00am TAKE 1 TABLET BY MOUTH ONCE DAILY IN THE MORNING ON AN EMPTY STOMACH Start: 12-20-2023 End: 03-28-2024 take 1 capsule by mouth once daily Levothyroxine 125 mcg capsule Discontinued 125 MCG PO Daily December 20, 2023 12:00am March 28, 2024 8:00am Start: 07-26-2022 take 125 ug by mouth once sloane y 125 mcg, Oral, DAILY, First dose on 07/07/24 at 0700, Until Discontinued, Tube feeding (TF) interaction, obtain physician order to manage, recommend holding TF for 30 minutes before and after dose. Start: 07-26-2022 take 1 tablet by fredrick th once daily in the morning Levothyroxine Sodium 125 MCG 1 tablet in the morning on an empty stomach Orally Once a day Jul, Active LORazepam 0.5 mg oral tablet (1 source) Benzodiazepine Start: 07-08-2024 End: 07-08-2024 take 0.5 mg by mouth once 0.5 mg, Oral, ONCE, 1 dose, On 07/08/24 at 1500 Start: 07-08-2024 End: 07-08-2024 take 0.5 mg by mouth once 0.5 mg, Oral, ONCE, 1 dose, On 07/08/24 at 1500 magnesium hydroxide 80 mg/ml oral suspension (1 source) Start: 07-08-2024 take 30 mL by mouth once daily as needed for constipation 30 mL, Oral, DAILY PRN, Starting on 07/08/24 at 1950, Until Discontinued, Constipation, First line therapy for constipation., Post-op 1 ml morphine sulfate 2 mg/ml cartridge (1 source) Opioid Agonist Start: 07-06-2024 End: 07-08-2024 2 mg, IntraVENous, EVERY 4 HOURS PRN, Starting on Tue07/06/24 at 1954, Until 07/08/24 at 1811, Pain Severe (7-10), Allowed for [...] Opioid Reversal naratriptan 2.5 mg oral tablet (12 sources) Serotonin-1b and Serotonin-1d Receptor Agonist Start: [...] 20 mL/lumen, Post-[place] [address] mg powder for oral suspension (1 source) [...] left breast, unspecified quadrant] 02-24-2024 Episodic Osteoarthritis (4 sources) Primary osteoarthritis, left shoulder; Translations: [Primary osteoarthritis, right shoulder] Onset: 9 07-04-2024 Chronic Other connective tissue disease (3 sources) History of cervical spine fusion; Translations: [Arthrodesis status] 02-24-2024 Episodic Other connective tissue disease (2 sources) Arthrodesis status; Translations: [Arthrodesis status] 06-25-2024 Episodic [...] to excess calories] Chronic Residual codes; unclassified (19 sources) Obstructive sleep apnea syndrome; Translations: [Obstructive sleep apnea (adult) (pediatric)] 07-01-2024 Chronic Residual codes; unclassified (2 sources) Obstructive sleep apnea (adult) (pediatric); Translations: [Obstructive sleep apnea (adult)(pediatric)] Chronic Spondylosis; intervertebral disc disorders; other back problems (20 sources) Lumbosacral spondylosis with radiculopathy; Translations: [Other spondylosis with radiculopathy, lumbosacral region] Chronic Spondylosis; intervertebral disc disorders; other back problems (20 sources) Cervicalgia; Translations: [Neck pain] Onset: 5 [...] Range Facility Basophils Auto (Bld) [#/Vol] on 07-12-2024 Basophils (Bld) [#/Vol] Automated basophil count 0.0-0.1 [facility] Basophils/100 WBC Auto (Bld) on 07-12-2024 Basophils/100 WBC (Bld) Automated basophil % 0.2-2.0 [facility] Eosinophils/100 WBC Auto (Bl d)on 07-12-2024 Eosinophils/100 WBC (Bld) Automated eosinophil % 0.9-7.0 [facility] Erythrocyte distribution wid th Auto (RBC) [Ratio]on 07-12-2024 Erythrocyte distribution width (RBC) [Ratio] Erythrocyte distribution width [Ratio] by Automated count 11.0-15.0 [facility] Estimated glomerular filtrat ion rate (GFR) non- Americanon 07-12-2024 GFR/1.73 sq M.predicted among non-blacks MDRD (S/P/Bld) [Vol rate/Area] Estimated glomerular filtration rate (GFR) non- Low >=60 mL/min/1.73m 2 [facility] Hematocrit Auto (Bld) [Volum e fraction]on 07-12-2024 Hematocrit (Bld) [Volume fraction] Hematocrit [Volume Fraction] of Blood by Automated count Low 36.0-48.0 [facility] Hemoglobin [Mass/volume] in Bloodon 07-12-2024 Hemoglobin (Bld) [Mass/Vol] Hemoglobin [Mass/volume] in Blood Low 12.0-16.0 [facility] Laboratory - Chemistry and C hemistry - challengeon 07-12-2024 Calcium [Mass/Vol] 8.6 mg/dL 8.5-10.1 [facility] Chloride [Moles/Vol] 102 mmol/L 98-107 [facility] CO2 [Moles/Vol] 24.7 mmol/L 21.0-32.0 [facility] Creatinine [Mass/Vol] 1.94 mg/dL High 0.55-1.02 [facility] GFR/1.73 sq M.predicted MDRD (S/P/Bld) [Vol rate/Area] 31 mL/min/{1.73_m2} Low >=60 mL/min/1.73m 2 [facility] Glucose [Mass/Vol] 203 mg/dL High 74-106 [facility] Potassium [Moles/Vol] 4.6 mmol/L 3.5-5.1 [facility] Sodium [Moles/Vol] 137 mmol/L 136-145 [facility] Urea nitrogen [Mass/Vol] 24.0 mg/dL High 7.0-18.0 [facility] Urea nitrogen/Creatinine [Mass ratio] 12.4 mg/mg [facility] Laboratory - Hematology and Cell countson 07-12-2024 Immature granulocytes/100 WBC (Bld) 1.8 % High 0.0-0.5 [facility] Leukocytes [#/volume] correc chip for nucleated erythrocytes in Blood by Automated counon 07-12-2024 WBC corrected for nucl RBC Auto (Bld) [#/Vol] Leukocytes [#/volume] corrected for nucleated erythrocytes in Blood by Automated coun 4.0-11.0 [facility] Lymphocytes Auto (Bld) [#/Vo l]on 07-12-2024 Lymphocytes (Bld) [#/Vol] Lymphocytes [#/volume] in Blood by Automated count 1.2-3.8 [facility] Lymphocytes/100 WBC Auto (Bl d)on 07-12-2024 Lymphocytes/100 WBC (Bld) Lymphocytes/100 leukocytes in Blood by Automated count 20.5-60.0 [facility] MCH Auto (RBC) [Entitic mass ]on 07-12-2024 MCH (RBC) [Entitic mass] MCH [Entitic mass] by Automated count 26.7-34.0 [facility] MCHC Auto (RBC) [Mass/Vol]on 07-12-2024 MCHC (RBC) [Mass/Vol] MCHC [Mass/volume] by Automated count 29.9-35.2 [facility] MCV Auto (RBC) [Entitic vol] on 07-12-2024 MCV (RBC) [Entitic vol] MCV [Entitic volume] by Automated count 81.0-99.0 [facility] Monocytes Auto (Bld) [#/Vol] on 07-12-2024 Monocytes (Bld) [#/Vol] Automated blood monocyte count 0.3-0.8 [facility] Monocytes/100 WBC Auto (Bld) on 07-12-2024 Monocytes/100 WBC (Bld) Automated monocyte % 1.7-12.0 [facility] Neutrophils Auto (Bld) [#/Vo l]on 07-12-2024 Neutrophils (Bld) [#/Vol] Neutrophils [#/volume] in Blood by Automated count 1.4-6.5 [facility] Neutrophils/100 WBC Auto (Bl d)on 07-12-2024 Neutrophils/100 WBC (Bld) Automated neutrophil % 43.0-75.0 [facility] No Panel Informationon 07-12 Eosinophils # (Auto) 0.2 10 3/uL 0.0-0.7 [facility] Immature Granulocyte # (Auto) 0.13 10 3/uL High 0.00-0.03 [facility] Platelet mean volume Auto (B ld) [Entitic vol]on 07-12-2024 Platelet mean volume (Bld) [Entitic vol] Platelet mean volume [Entitic volume] in Blood by Automated count 9.5-13.5 [facility] Platelets Auto (Bld) [#/Vol] on 07-12-2024 Platelets (Bld) [#/Vol] Platelets [#/volume] in Blood by Automated count 150-450 [facility] RBC Auto (Bld) [#/Vol]on RBC (Bld) [#/Vol] Erythrocytes [#/volu me] in Blood by Automated count Low 4.20-5.40 [facility] Serum or plasma anion gap de terminationon 07-12-2024 Anion gap [Moles/Vol] Serum or plasma anion gap determination [facility] ANION GAPon 07-11-2024 Anion gap [Moles/Vol] 10.0 mmol/L Normal 8.0-16.0 [facility] Comment on above: Result Comment: ANIO N GAP = Sodium -(Chloride + CO2) Performed By: #### P OCGL #### [facility] [address] [place] [address] Anion Gapon 07-11-2024 Anion gap [Moles/Vol] 10 mmol/L 8.0 - 16.0 meq/L [facility] Comment on above: ANION GAP = Sodium - (Chloride + CO2) Performed at [facility] [address] [place] [address] BASIC METABOL PANELon 2024 Calcium [Mass/Vol] 8.9 mg/dL Normal 8.8-10.2 [facility] Comment on above: Performed By: #### P OCGL #### [facility] [address] [place] [address] CO2 [Moles/Vol] 22 mmol/L Normal 22-29 [facility] Comment on above: Performed By: #### P OCGL #### [address] [address] Creatinine [Mass/Vol] 1.0 mg/dL High 0.5-0.9 [facility] Comment on above: Performed By: #### P OCGL #### [address] [address] Glucose [Mass/Vol] 166 mg/dL High 74-109 [facility] Comment on above: Performed By: #### P OCGL #### [address] [address] Urea nitrogen [Mass/Vol] 16 mg/dL Normal 8-23 [facility] Comment on above: Performed By: #### P OCGL #### [address] [address] Chloride [Moles/Vol] 103 mmol/L Normal 98-111 [facility] Comment on above: Performed By: #### P OCGL #### [address] [address] Potassium [Moles/Vol] 4.7 mmol/L Normal 3.5-5.2 [facility] Comment on above: Result Comment: Low level specimen hemolysis is present as indicated by the interference index on the Yamilet analyzer. ??The reported K+ level may be falsely increased. If clinically warranted, recollection of the specimen is suggested. Performed By: #### P OCGL #### [address] [address] Sodium [Moles/Vol] 135 mmol/L Normal 135-145 [facility] Comment on above: Performed By: #### P OCGL #### [address] [address] Basic metabolic 2000 panelon 07-11-2024 Calcium [Mass/Vol] 8.9 mg/dL 8.8 - 10. 2 mg/dL [facility] Comment on above: Performed at [facility] [address] [place] [address] Chloride [Moles/Vol] 103 mmol/L 98 - 11 1 meq/L [facility] CO2 [Moles/Vol] 22 mmol/L 22 - 29 meq/L [facility] Creatinine [Mass/Vol] 1.0 mg/dL High 0.5 - 0.9 mg/dL [facility] Glucose [Mass/Vol] 166 mg/dL High 74 - 109 mg/dL [facility] Interpretation and review of laboratory results Abnormal [facility] Potassium [Moles/Vol] 4.7 mmol/L 3.5 - 5.2 meq/L [facility] Comment on above: Low level specimen h emolysis is present as indicated by the interference index on the Yamilet analyzer. The reported K+ level may be falsely increased. If clinically warranted, recollection of the specimen is suggested. Sodium [Moles/Vol] 135 mmol/L 135 - 145 meq/L [facility] Urea nitrogen [Mass/Vol] 16 mg/dL 8 - 23 mg/dL [facility] GFR, ESTIMATEDon 07-11-2024 GFR/1.73 sq M.predicted MDRD (S/P/Bld) [Vol rate/Area] 62 mL/min/{1.73_m2} Normal >60 [facility] Comment on above: Pediatric calculator link https://www.kidney.org/professionals/kdoqi/gfr_calculatorped [...] that affects renal tubular secretion. Performed at [facility] [address] [place] [address] Result Comment: Soniya atric calculator link https://www.kidney.org/professionals/kdoqi/gfr_calculatorped [...] secretion. Performed By: #### P OCGL #### [facility] [address] [place] [address] GLUCOSE POCon 07-11-2024 Glucose [Mass/Vol] 177 mg/dL High 70-108 [facility] Comment on above: Performed at [facility] [address] [place] [address] Performed By: #### P OCGL #### [place] [address] Glucose Auto test strip (Bld ) [Mass/Vol]on 07-11-2024 Interpretation and review of laboratory results Abnormal [facility] HGB,HCTon 07-11-2024 Hematocrit (Bld) [Volume fraction] 33.4 % Low 37.0-47.0 [facility] Comment on above: Performed at [facility] [address] [place] [address] Performed By: #### P OCGL #### [place] [address] Hemoglobin (Bld) [Mass/Vol] 10.8 g/dL Low 12.0-16.0 [facility] Comment on above: Performed By: #### P OCGL #### [place] [address] Hemoglobin and Hematocrit pa bhavna (Bld)on 07-11-2024 Interpretation and review of laboratory results Abnormal [facility] No Panel Informationon 07-11 [facility] ANION GAPon 07-10-2024 Anion gap [Moles/Vol] 8.0 mmol/L Normal 8.0-16.0 [facility] Comment on above: Result Comment: ANIO N GAP = Sodium -(Chloride + CO2) Performed By: #### P OCGL #### [facility] [place] [address] Anion Gapon 07-10-2024 Anion gap [Moles/Vol] 8 mmol/L 8.0 - 16.0 meq/L [facility] Comment on above: ANION GAP = Sodium - (Chloride + CO2) Performed at [facility] [address] [place] [address] BASIC METABOL PANELon 2024 Calcium [Mass/Vol] 8.8 mg/dL Normal 8.8-10.2 [facility] Comment on above: Performed By: #### P OCGL #### [facility] [address] [place] [address] CO2 [Moles/Vol] 26 mmol/L Normal 22-29 [facility] Comment on above: Performed By: #### P OCGL #### [facility] [address] [place] [address] Creatinine [Mass/Vol] 1.1 mg/dL High 0.5-0.9 [facility] Comment on above: Performed By: #### P OCGL #### [facility] [address] [place] [address] Glucose [Mass/Vol] 198 mg/dL High 74-109 [facility] Comment on above: Performed By: #### P OCGL #### [facility] [address] [place] [address] Urea nitrogen [Mass/Vol] 24 mg/dL High 8-23 [facility] Comment on above: Performed By: #### P OCGL #### [facility] [address] [place] [address] Chloride [Moles/Vol] 101 mmol/L Normal 98-111 [facility] Comment on above: Performed By: #### P OCGL #### [facility] [address] [place] [address] Potassium [Moles/Vol] 4.6 mmol/L Normal 3.5-5.2 [facility] Comment on above: Performed By: #### P OCGL #### [facility] [address] [place] [address] Sodium [Moles/Vol] 135 mmol/L Normal 135-145 [facility] Comment on above: Performed By: #### P OCGL #### [facility] [address] [place], [place] [id number] Basic metabolic 2000 panelon 07-10-2024 Calcium [Mass/Vol] 8.8 mg/dL 8.8 - 10. 2 mg/dL [facility] Comment on above: Performed at [facility] [address] [place] [address] Chloride [Moles/Vol] 101 mmol/L 98 - 11 1 meq/L [facility] [facility] CO2 [Moles/Vol] 26 mmol/L 22 - 29 meq/L [employer] Creatinine [Mass/Vol] 1.1 mg/dL High 0.5 - 0.9 mg/dL [employer] Glucose [Mass/Vol] 198 mg/dL High 74 - 109 mg/dL [employer] Potassium [Moles/Vol] 4.6 mmol/L 3.5 - 5.2 meq/L [facility] Sodium [Moles/Vol] 135 mmol/L 135 - 145 meq/L [facility] Urea nitrogen [Mass/Vol] 24 mg/dL High 8 - 23 mg/dL [employer] GFR, ESTIMATEDon 07-10-2024 GFR/1.73 sq M.predicted MDRD (S/P/Bld) [Vol rate/Area] 56 mL/min/{1.73_m2} Abnormal >60 [employer] Comment on above: Pediatric calculator link https://www.kidney.org/professionals/kdoqi/gfr_calculatorped [...] that affects renal tubular secretion. Performed at [facility] [address] [place] [address] Result Comment: Soniya atric calculator link https://www.kidney.org/professionals/kdoqi/gfr_calculatorped [...] secretion. Performed By: #### P OCGL #### [address] [address] GLUCOSE POCon 07-10-2024 Glucose [Mass/Vol] 267 mg/dL High 70-108 [facility] Comment on above: Performed at [facility] [address] [place] [address] Performed By: #### P OCGL #### [address] [address] Glucose [Mass/Vol] 154 mg/dL High 70-108 [facility] Comment on above: Performed at [facility] [address] [place] [address] Performed By: #### P OCGL #### [address] [address] Glucose [Mass/Vol] 302 mg/dL High 70-108 [facility] Comment on above: Performed at [facility] [address] [place] [address] Performed By: #### P OCGL #### [address] [address] Glucose [Mass/Vol] 205 mg/dL High 70-108 [facility] Comment on above: Performed at [facility] [address] [place] [address] Performed By: #### P OCGL #### [address] [address] Glucose Auto test strip (Bld ) [Mass/Vol]on 07-10-2024 Interpretation and review of laboratory results Abnormal [facility] Interpretation and review of laboratory results Abnormal [facility]rix[facility] Interpretation and review of laboratory results Abnormal Applyful [facility] CenterNeuroMetrixUNC Health [facility] Holly SpringsNeuroMetrixWell[facility] Interpretation and review of laboratory results Abnormal [facility] HGB,HCTon 07-10-2024 Hematocrit (Bld) [Volume fraction] 32.2 % Low 37.0-47.0 Bon [facility] Comment on above: Performed at [facility] [address] [place] [address] Performed By: #### P OCGL #### [facility] [address] [place] [address] Hemoglobin (Bld) [Mass/Vol] 10.0 g/dL Low 12.0-16.0 [facility] Comment on above: Performed By: #### P OCGL #### [facility] [address] [place], [place] [id number] Hemoglobin and Hematocrit pa bhavna (Bld)on 07-10-2024 Hemoglobin (Bld) [Mass/Vol] 10 g/dL Low [employer] Interpretation and review of laboratory results Abnormal [facility] [employer] [facility] [employer] No Panel Informationon 07-10 Interpretation and review of laboratory results Abnormal [facility] [employer] [facility] ANION GAPon 07-09-2024 Anion gap [Moles/Vol] 10.0 mmol/L Normal 8.0-16.0 [facility] Comment on above: Result Comment: ANIO N GAP = Sodium -(Chloride + CO2) Performed By: #### P OCGL #### [facility] [address] Anion Gapon 07-09-2024 Anion gap [Moles/Vol] 10 mmol/L 8.0 - 16.0 meq/L [facility] [employer] Comment on above: ANION GAP = Sodium - (Chloride + CO2) Performed at [facility] [address] [place] [address] BASIC METABOL PANELon 2024 Calcium [Mass/Vol] 8.3 mg/dL Low 8.8-10.2 [facility] Comment on above: Performed By: #### P OCGL #### [facility] [address] [place] [address] CO2 [Moles/Vol] 23 mmol/L Normal 22-29 [facility] Comment on above: Performed By: #### P OCGL #### [facility] [address] [place] [address] Creatinine [Mass/Vol] 1.1 mg/dL High 0.5-0.9 [facility] Comment on above: Performed By: #### P OCGL #### [facility] [address] [place] [address] Glucose [Mass/Vol] 197 mg/dL High 74-109 [facility] Comment on above: Performed By: #### P OCGL #### [facility] [address] [place] [address] Urea nitrogen [Mass/Vol] 21 mg/dL Normal 8-23 [facility] Comment on above: Performed By: #### P OCGL #### [facility] [address] [place] [address] Chloride [Moles/Vol] 103 mmol/L Normal 98-111 [facility] Comment on above: Performed By: #### P OCGL #### [facility] [address] [place] [address] Potassium [Moles/Vol] 5.8 mmol/L High 3.5-5.2 [facility] Comment on above: Performed By: #### P OCGL #### [facility] [address] [place] [address] Sodium [Moles/Vol] 136 mmol/L Normal 135-145 [facility] Comment on above: Performed By: #### P OCGL #### [facility] [address] [place] [address] Basic metabolic 2000 panelon 07-09-2024 Calcium [Mass/Vol] 8.3 mg/dL Low 8.8 - 10. 2 mg/dL [facility] Comment on above: Performed at [facility] [address] [place] [address] Chloride [Moles/Vol] 103 mmol/L 98 - 11 1 meq/L [facility] CO2 [Moles/Vol] 23 mmol/L 22 - 29 meq/L Bon [facility] Creatinine [Mass/Vol] 1.1 mg/dL High 0.5 - 0.9 mg/dL Bon [facility] Glucose [Mass/Vol] 197 mg/dL High 74 - 109 mg/dL [facility] Potassium [Moles/Vol] 5.8 mmol/L High 3.5 - 5.2 meq/L Bon [facility] ContextWeb Sodium [Moles/Vol] 136 mmol/L 135 - 145 meq/L [facility] Urea nitrogen [Mass/Vol] 21 mg/dL 8 - 23 mg/dL [facility] GFR, ESTIMATEDon 07-09-2024 GFR/1.73 sq M.predicted MDRD (S/P/Bld) [Vol rate/Area] 56 mL/min/{1.73_m2} Abnormal >60 [facility] Comment on above: Pediatric calculator link https://www.kidney.org/professionals/kdoqi/gfr_calculatorped [...] that affects renal tubular secretion. Performed at [facility] [place] [address] Result Comment: Pedi atric calculator link https://www.kidney.org/professionals/kdoqi/gfr_calculatorped [...] secretion. Performed By: #### P OCGL #### [facility] [address] [place] [address] GLUCOSE POCon 07-09-2024 Glucose [Mass/Vol] 211 mg/dL High 70-108 [facility] Comment on above: Performed at [facility] [address] [place] [address] Performed By: #### P OCGL #### [facility] [address] [place] [address] Glucose [Mass/Vol] 212 mg/dL High 70-108 [facility] Comment on above: Performed at [facility] [address] [place] [address] Performed By: #### P OCGL #### [place] [address] Glucose [Mass/Vol] 169 mg/dL High 70-108 [facility] Comment on above: Performed at [facility] [address] [place] [address] Performed By: #### P OCGL #### [place] [address] Glucose [Mass/Vol] 229 mg/dL High 70-108 [facility] Comment on above: Performed at [facility] [address] [place] [address] Performed By: #### P OCGL #### [place] [address] Glucose [Mass/Vol] 203 mg/dL High 70-108 [facility] Comment on above: Performed at [facility] [address] [place] [address] Performed By: #### P OCGL #### [place] [address] HGB,HCTon 07-09-2024 Hematocrit (Bld) [Volume fraction] 36.7 % Low 37.0-47.0 [facility] Comment on above: Performed at [facility] [address] [place] [address] Performed By: #### P OCGL #### [place] [address] Hemoglobin (Bld) [Mass/Vol] 11.9 g/dL Low 12.0-16.0 [facility] Comment on above: Performed By: #### P OCGL #### [place] [address] No Panel Informationon 07-09 Interpretation and review of laboratory results Abnormal [facility] POTASSIUMon 07-09-2024 Potassium [Moles/Vol] 4.7 mmol/L Normal 3.5-5.2 [facility] Comment on above: Performed By: #### K P #### [place] [address] Potassiumon 07-09-2024 Potassium [Moles/Vol] 4.7 mmol/L 3.5 - 5.2 meq/L [facility] HospitalNeuroMetrix[facility] Comment on above: Performed at [facility] [address] [place] [address] GLUCOSE POCon 07-08-2024 Glucose [Mass/Vol] 266 mg/dL High 70-108 [facility] Comment on above: Performed at [facility] [address] [place] [address] Performed By: #### P OCGL #### [facility] [address] [place] [address] Glucose [Mass/Vol] 120 mg/dL High 70-108 [facility] Comment on above: Performed at [facility] [address] [place] [address] Performed By: #### P OCGL #### [place] [address] Glucose [Mass/Vol] 105 mg/dL Normal 70-108 [facility] Comment on above: Performed at [facility] [address] [place] [address] Performed By: #### P OCGL #### [facility] [address] [address] Glucose [Mass/Vol] 136 mg/dL High 70-108 [facility] Comment on above: Performed at [facility] [address] [place] [address] Performed By: #### P OCGL #### [facility] [place] [address] Glucose Auto test strip (Bld ) [Mass/Vol]on 07-08-2024 Interpretation and review of laboratory results Abnormal [facility] Center[facility] Interpretation and review of laboratory results Abnormal [facility] Center[facility] Hospital[facility] HospitalLog[facility] Solutions [facility] Interpretation and review of laboratory results Abnormal Apply[facility] Center[facility] XR LUMBAR SPINE 1 VWon 07-08 [...] Boo Headley MD 07/08/24 Final result Normal [facility] XR Lumbar spine Single viewo n 07-08-2024 1. Evidence of posterior fusion at L4-L5. Please refer to operative report for further details. This report has been created using voice recognition software. It may contain minor errors which are inherent in voice recognition technology. Electronically signed by Dr. Jerrod Betts [facility] Sivakumar Betts MD - 07/08/2024 PROCEDURE: [...] technology. Electronically signed by Dr. Jerrod Betts [facility] Radiology Study observation (narrative) [facility] Intraoperative appearance of the lumbar spine. This report has been created using voice recognition software. It may contain minor errors which are inherent in voice recognition technology. Electronically signed by Dr. Boo Headley [facility] MOBILE LATERAL LUMBA R SPINE: CLINICAL INFORMATION: surgery. L3-L5 decompression. L4-L5- fusion COMPARISON: No prior study. TECHNIQUE: A single lateral mobile view of the lumbar spine was obtained For localization purposes. FINDINGS: 2 spinal needles are present posteriorly directed at the L4 and L5 levels. [facility] Boo Headley MD - 07/08/2024 [...] technology. Electronically signed by Dr. Boo Headley [facility] Radiology Study observation (narrative) [facility] XR Lumbar spine Single viewO rdered By: Sivakumar Betts on 07-08-2024 [facility] [employer] Work Phone: XR Lumbar spine Single viewO rdered By: Boo Headley on 07-08-2024 [facility] Work Phone: ANION GAPon 07-07-2024 Anion gap [Moles/Vol] 14.0 mmol/L Normal 8.0-16.0 [facility] Comment on above: Result Comment: ANIO N GAP = Sodium -(Chloride + CO2) Performed By: #### B MP, EGFR1, CBCND, ANION #### [facility] [address] [place] [address] Anion Gapon 07-07-2024 Anion gap [Moles/Vol] 14 mmol/L 8.0 - 16.0 meq/L [facility] Comment on above: ANION GAP = Sodium - (Chloride + CO2) Performed at [facility] [address] [place] [address] BASIC METABOL PANELon 2024 CO2 [Moles/Vol] 21 mmol/L Low 22-29 [facility] Comment on above: Performed By: #### B MP, EGFR1, CBCND, ANION #### [facility] [address] [place] [address] Creatinine [Mass/Vol] 1.0 mg/dL High 0.5-0.9 [facility] Comment on above: Performed By: #### B MP, EGFR1, CBCND, ANION #### [facility] [address] [place] [address] Glucose [Mass/Vol] 172 mg/dL High 74-109 [facility] Comment on above: Performed By: #### B MP, EGFR1, CBCND, ANION #### [facility] [address] [place] [address] Urea nitrogen [Mass/Vol] 33 mg/dL High 8-23 [facility] Comment on above: Performed By: #### B MP, EGFR1, CBCND, ANION #### [facility] [email or web address] [address] [place] [address] Calcium [Mass/Vol] 9.2 mg/dL Normal 8.8-10.2 [facility] Comment on above: Performed By: #### B MP, EGFR1, CBCND, ANION #### [facility] [email or web address] [address] [place] [address] Chloride [Moles/Vol] 103 mmol/L Normal 98-111 [facility] Comment on above: Performed By: #### B MP, EGFR1, CBCND, ANION #### [address] [address] Potassium [Moles/Vol] 4.4 mmol/L Normal 3.5-5.2 [facility] Comment on above: Result Comment: Low level specimen hemolysis is present as indicated by the interference index on the Yamilet analyzer. ??The reported K+ level may be falsely increased. If clinically warranted, recollection of the specimen is suggested. Performed By: #### B MP, EGFR1, CBCND, ANION #### [facility] [employer] [address] [place] [address] Sodium [Moles/Vol] 138 mmol/L Normal 135-145 [facility] Comment on above: Performed By: #### B MP, EGFR1, CBCND, ANION #### [facility] [employer] [address] [place] [address] Basic metabolic 2000 panelon 07-07-2024 Calcium [Mass/Vol] 9.2 mg/dL 8.8 - 10. 2 mg/dL [facility] Comment on above: Performed at [facility] [address] [place] [address] Chloride [Moles/Vol] 103 mmol/L 98 - 11 1 meq/L [facility] CO2 [Moles/Vol] 21 mmol/L Low 22 - 29 meq/L [facility] Creatinine [Mass/Vol] 1.0 mg/dL High 0.5 - 0.9 mg/dL [facility] Glucose [Mass/Vol] 172 mg/dL High 74 - 109 mg/dL [facility] Interpretation and review of laboratory results Abnormal [facility] Potassium [Moles/Vol] 4.4 mmol/L 3.5 - 5.2 meq/L [facility] Comment on above: Low level specimen h emolysis is present as indicated by the interference index on the Yamilet analyzer. The reported K+ level may be falsely increased. If clinically warranted, recollection of the specimen is suggested. Sodium [Moles/Vol] 138 mmol/L 135 - 145 meq/L [facility] Urea nitrogen [Mass/Vol] 33 mg/dL High 8 - 23 mg/dL [facility] CBCon 07-07-2024 Erythrocyte distribution width (RBC) [Entitic vol] 40.3 fL 35.0 - 45.0 fL [facility] Platelets (Bld) [#/Vol] 236 10*3/uL [facility] RBC (Bld) [#/Vol] 4.73 10*6/uL [facility] WBC (Bld) [#/Vol] 8.6 10*3/uL [facility] Se cours [facility] CBC NO DIFFERENTIALon 2024 Erythrocyte distribution width (RBC) [Ratio] 12.6 % Normal 11.5-14.5 [facility] Comment on above: Performed By: #### B MP, EGFR1, CBCND, ANION #### [facility] [address] [place] [address] Hematocrit (Bld) [Volume fraction] 41.6 % Normal 37.0-47.0 [facility] Comment on above: Performed By: #### B MP, EGFR1, CBCND, ANION #### [facility] [address] [place] [address] Hemoglobin (Bld) [Mass/Vol] 13.5 g/dL Normal 12.0-16.0 [facility] Comment on above: Performed By: #### B MP, EGFR1, CBCND, ANION #### [facility] [address] [place] [address] MCH (RBC) [Entitic mass] 28.5 pg Normal 26.0-33.0 [facility] Comment on above: Performed By: #### B MP, EGFR1, CBCND, ANION #### [place] [address] MCHC (RBC) [Mass/Vol] 32.5 g/dL Normal 32.2-35.5 [facility] Comment on above: Performed By: #### B MP, EGFR1, CBCND, ANION #### [place] [address] MCV (RBC) [Entitic vol] 87.9 fL Normal 81.0-99.0 [facility] Comment on above: Performed By: #### B MP, EGFR1, CBCND, ANION #### [place] [address] PLATELET 236 thou/mm3 Normal 130-400 [facility] Comment on above: Performed By: #### B MP, EGFR1, CBCND, ANION #### [place] [address] Platelet mean volume (Bld) [Entitic vol] 9.6 fL Normal 9.4-12.4 [facility] Comment on above: Performed at [facility] [address] [place] [address] Performed By: #### B MP, EGFR1, CBCND, ANION #### [place] [address] RBC 4.73 mill/mm3 Normal 4.20-5.40 [facility] Comment on above: Performed By: #### B MP, EGFR1, CBCND, ANION #### [place] [address] RDW-SD 40.3 fL Normal 35.0-45.0 [facility] Comment on above: Performed By: #### B MP, EGFR1, CBCND, ANION #### [place] [address] WBC 8.6 thou/mm3 Normal 4.8-10.8 [facility] Comment on above: Performed By: #### B MP, EGFR1, CBCND, ANION #### [facility] [address] [place] [address] GFR, ESTIMATEDon 07-07-2024 GFR/1.73 sq M.predicted MDRD (S/P/Bld) [Vol rate/Area] 62 mL/min/{1.73_m2} Normal >60 Bon [facility] Comment on above: Pediatric calculator link https://www.kidney.org/professionals/kdoqi/gfr_calculatorped [...] that affects renal tubular secretion. Performed at [facility] [place] [address] Result Comment: Pedi atric calculator link https://www.kidney.org/professionals/kdoqi/gfr_calculatorped [...] #### B MP, EGFR1, CBCND, ANION #### [facility] [address] [place] [address] GLUCOSE POCon 07-07-2024 Glucose [Mass/Vol] 271 mg/dL High 70-108 [facility] Comment on above: Performed at [facility] [place] [address] Performed By: #### P OCGL #### [facility] [address] [place] [address] Glucose [Mass/Vol] 188 mg/dL High 70-108 [facility] Comment on above: Performed at [facility] [address] [place] [address] Performed By: #### P OCGL #### [facility] [address] [place] [address] Glucose [Mass/Vol] 174 mg/dL High 70-108 [facility] Comment on above: Performed at [facility] [address] [place] [address] Performed By: #### P OCGL #### [facility] [address] [place] [address] Glucose [Mass/Vol] 76 mg/dL Normal 70-108 [facility] Comment on above: Performed at [facility] [address] [place] [address] Performed By: #### P OCGL #### [facility] [address] [place] [address] Glomerular Filtration Rate, Estimatedon 07-07-2024 [facility] Glucose Auto test strip (Bld ) [Mass/Vol]on 07-07-2024 Interpretation and review of laboratory results Abnormal [facility] Interpretation and review of laboratory results Abnormal [facility] HospitalLog[facility] Interpretation and review of laboratory results Abnormal [facility] HospitalR[facility] HospitalLog[facility] No Panel Informationon 07-07 [employer] XR CHEST (2 VW)on 07-07-2024 XR CHEST [...] Kj Epps MD 07/07/24 Final result Normal [facility] XR Chest 2 Viewson Impression: No acute cardiopulmonary disease. This document has been electronically signed by: Kj Epps MD on 07/07/2024 02:22 AM [facility] Chest X-ray: 2 views . Indication: Pulmonary congestion. Comparison: None Findings: The lungs are well aerated. No focal consolidation, or pleural effusion. The cardiac silhouette is normal in size. Bony thorax is grossly intact. Bilateral shoulder arthroplasty. External metallic density versus surgical hardware projects on the lower cervical spine. [facility] Kj Epps MD - 025 Chest X-ray: [...] Kj Epps MD on 07/07/2024 02:22 AM [facility] Radiology Study observation (narrative) [facility] XR Chest 2 ViewsOrdered By: Kj Epps on 07-07-2024 [facility] ANION GAPon 07-06-2024 Anion gap [Moles/Vol] 14.0 mmol/L Normal 8.0-16.0 [facility] Comment on above: Result Comment: ANIO N GAP = Sodium -(Chloride + CO2) Performed By: #### P OCGL #### [facility] [address] [place] [address] APTTon 07-06-2024 aPTT Coag (Bld) [Time] 29.5 s Normal 22.0-38.0 [facility] Comment on above: Result Comment: Ther apeutic Heparin Reference Range= 60-95 seconds (corresponds to 0.3 to 0.7 u/mL Anti-Xa factor activity) Performed By: #### P OCGL #### [facility] [address] [place] [address] Anion Gapon 07-06-2024 Anion gap [Moles/Vol] 14 mmol/L 8.0 - 16.0 meq/L [facility] Comment on above: ANION GAP = Sodium - (Chloride + CO2) Performed at [facility] [address] [place] [address] CBC WITH DIFFERENTIALon 06-23 ABS BASOPHILS 0.0 thou/mm3 Normal 0.0-0.1 [facility] Comment on above: Performed By: #### P OCGL #### [address] [address] ABS EOSINOPHILS 0.0 thou/mm3 Normal 0.0-0.4 [facility] Comment on above: Performed By: #### P OCGL #### [address] [address] ABS IMMATURE GRANS (IG) 0.05 thou/mm3 Normal 0.00-0.07 [facility] Comment on above: Performed By: #### P OCGL #### [address] [address] ABS LYMPHOCYTES 2.8 thou/mm3 Normal 1.0-4.8 [facility] Comment on above: Performed By: #### P OCGL #### [address] [address] ABS MONOCYTES 0.8 thou/mm3 Normal 0.4-1.3 [facility] Comment on above: Performed By: #### P OCGL #### [address] [address] ABS NEUTROPHILS 7.9 thou/mm3 High 1.8-7.7 [facility] Comment on above: Performed By: #### P OCGL #### [address] [address] Basophils/100 WBC (Bld) 0.2 % Normal [facility] Comment on above: Performed By: #### P OCGL #### [address] [address] Eosinophils/100 WBC (Bld) 0.3 % Normal [facility] Comment on above: Performed By: #### P OCGL #### [facility] [address] [place] [address] Erythrocyte distribution width (RBC) [Ratio] 12.5 % Normal 11.5-14.5 [facility] Comment on above: Performed By: #### P OCGL #### [address] [address] Hematocrit (Bld) [Volume fraction] 42.6 % Normal 37.0-47.0 [facility] Comment on above: Performed By: #### P OCGL #### [address] [address] Hemoglobin (Bld) [Mass/Vol] 13.8 g/dL Normal 12.0-16.0 [facility] Comment on above: Performed By: #### P OCGL #### [address] [address] IMMATURE GRANS (IG) 0.4 % Normal [facility] Comment on above: Performed By: #### P OCGL #### [address] [address] Lymphocytes/100 WBC (Bld) 24.0 % Normal [facility] Comment on above: Performed By: #### P OCGL #### [address] [address] MCH (RBC) [Entitic mass] 28.6 pg Normal 26.0-33.0 [facility] Comment on above: Performed By: #### P OCGL #### [address] [address] MCHC (RBC) [Mass/Vol] 32.4 g/dL Normal 32.2-35.5 [facility] Comment on above: Performed By: #### P OCGL #### [address] [address] MCV (RBC) [Entitic vol] 88.2 fL Normal 81.0-99.0 [facility] Comment on above: Performed By: #### P OCGL #### [address] [address] Monocytes/100 WBC (Bld) 6.8 % Normal [facility] Comment on above: Performed By: #### P OCGL #### [address] [address] Neutrophils/100 WBC (Bld) 68.3 % Normal [facility] Comment on above: Performed By: #### P OCGL #### [address] [address] NRBC 0 /100 wbc Normal [facility] Comment on above: Performed By: #### P OCGL #### [facility] [address] [place] [address] PLATELET 274 thou/mm3 Normal 130-400 [facility] Comment on above: Performed By: #### P OCGL #### [facility] [address] [place] [address] Platelet mean volume (Bld) [Entitic vol] 9.7 fL Normal 9.4-12.4 [facility] Comment on above: Performed By: #### P OCGL #### [facility] [address] [place] [address] RBC 4.83 mill/mm3 Normal 4.20-5.40 [facility] Comment on above: Performed By: #### P OCGL #### [facility] [address] [place] [address] RDW-SD 39.9 fL Normal 35.0-45.0 [facility] Comment on above: Performed By: #### P OCGL #### [facility] [address] [place] [address] WBC 11.6 thou/mm3 High 4.8-10.8 [facility] Comment on above: Performed By: #### P OCGL #### [facility] [address] [place] [address] CBC with Auto Differentialon 07-06-2024 Basophils (Bld) [...] [facility] Comment on above: Performed at [facility] [address] [place] [address] Platelets (Bld) [#/Vol] 274 10*3/uL [facility] RBC (Bld) [#/Vol] 4.83 10*6/uL [facility] WBC (Bld) [#/Vol] 11.6 10*3/uL High [facility] COMP. METABOLIC PANELon 06-23 Albumin [Mass/Vol] 4.3 g/dL Normal 3.4-4.9 [facility] Comment on above: Performed By: #### P OCGL #### [address] [address] ALP [Catalytic activity/Vol] 65 U/L Normal 35-104 [facility] Comment on above: Performed By: #### P OCGL #### [email or web address] [address] [address] ALT [Catalytic activity/Vol] 24 U/L Normal 10-35 [facility] Comment on above: Performed By: #### P OCGL #### [email or web address] [address] [address] AST [Catalytic activity/Vol] 23 U/L Normal 10-35 [facility] Comment on above: Performed By: #### P OCGL #### [facility] [address] [place] [address] Bilirubin [Mass/Vol] 0.4 mg/dL Normal 0.3-1.2 [facility] Comment on above: Performed By: #### P OCGL #### [facility] [address] [place] [address] Calcium [Mass/Vol] 9.6 mg/dL Normal 8.8-10.2 [facility] Comment on above: Performed By: #### P OCGL #### [facility] [address] [place] [address] CO2 [Moles/Vol] 26 mmol/L Normal 22-29 [facility] Comment on above: Performed By: #### P OCGL #### [facility] [address] [place] [address] Creatinine [Mass/Vol] 1.3 mg/dL High 0.5-0.9 [facility] Comment on above: Performed By: #### P OCGL #### [address] [address] Glucose [Mass/Vol] 259 mg/dL High 74-109 [facility] Comment on above: Performed By: #### P OCGL #### [address] [address] Protein [Mass/Vol] 7.2 g/dL Normal 6.4-8.3 [facility] Comment on above: Performed By: #### P OCGL #### [address] [address] Urea nitrogen [Mass/Vol] 43 mg/dL High 8-23 [facility] Comment on above: Performed By: #### P OCGL #### [address] [address] Chloride [Moles/Vol] 96 mmol/L Low 98-111 [facility] Comment on above: Performed By: #### P OCGL #### [address] [address] POTASSIUM WITH REFLEX MG 5.0 meq/L Normal 3.5-5.2 [facility] Comment on above: Result Comment: Low level specimen hemolysis is present as indicated by the interference index on the Yamilet analyzer. ??The reported K+ level may be falsely increased. If clinically warranted, recollection of the specimen is suggested. Performed By: #### P OCGL #### [address] [address] Sodium [Moles/Vol] 136 mmol/L Normal 135-145 [facility] Comment on above: Performed By: #### P OCGL #### [address] [address] Comprehensive metabolic 2000 panelon 07-06-2024 Albumin BCG dye [Mass/Vol] 4.3 g/dL 3.4 - 4.9 g/dL [facility] ALP [Catalytic activity/Vol] 65 U/L 35 - 104 U/L [facility] ALT No additional P-5'-P [Catalytic activity/Vol] 24 U/L 10 - 35 U/L [facility] Comment on above: Performed at [facility] [address] [place] [address] AST [Catalytic activity/Vol] 23 U/L 10 - 35 U/L [facility] Bilirubin [Mass/Vol] 0.4 mg/dL 0.3 - 1 .2 mg/dL [facility] Calcium [Mass/Vol] 9.6 mg/dL 8.8 - 10. 2 mg/dL [facility] Chloride [Moles/Vol] 96 mmol/L Low 98 - 11 1 meq/L [facility] CO2 [Moles/Vol] 26 mmol/L 22 - 29 meq/L [facility] Creatinine [Mass/Vol] 1.3 mg/dL High 0.5 - 0.9 mg/dL [facility] Glucose [Mass/Vol] 259 mg/dL High 74 - 109 mg/dL [facility] Potassium [Moles/Vol] 5.0 mmol/L 3.5 - 5.2 meq/L [facility] Comment on above: Low level specimen h emolysis is present as indicated by the interference index on the Yamilet analyzer. The reported K+ level may be falsely increased. If clinically warranted, recollection of the specimen is suggested. Protein [Mass/Vol] 7.2 g/dL 6.4 - 8.3 g/dL [facility] Sodium [Moles/Vol] 136 mmol/L 135 - 145 meq/L [facility] Urea nitrogen [Mass/Vol] 43 mg/dL High 8 - 23 mg/dL [facility] EKG 12 leadOrdered By: Kp Rodriges on 07-06-2024 Atrial Rate 68 BPM [facility] [employer] Work Phone: P Julian 58 degrees [facility] [employer] Work Phone: P-R Interval 146 ms [facility] [employer] Work Phone: Q-T Interval 422 ms [facility] [employer] Work Phone: QRS Duration 82 ms [employer] Work Phone: QTc Calculation (Bazett) 448 ms [employer] Work Phone: R Julian 67 degrees [facility] [employer] Work Phone: T Julian 66 degrees [employer] Work Phone: Ventricular Rate 68 BPM [facility] [email or web address] Work Phone: [facility] Work Phone: EKG 12 leadon 07-06-2024 Normal sinus rhythm Possible Left atrial enlargement ST & T wave abnormality, consider anterior ischemia Abnormal ECG No previous ECGs available Clinical correlation is indicated Confirmed by Kp Rodriges ([id number]) on 07/06/2024 11:10:52 PM [facility] Kp Vargas MD - 07/06/2024 Normal sinus rhythm Possible Left atrial enlargement ST & T wave abnormality, consider anterior ischemia Abnormal ECG No previous ECGs available Clinical correlation is indicated Confirmed by Kp Rodriges ([id number]) on 07/06/2024 11:10:52 PM [employer] EKG 12-LEADon 07-06-2024 EKG 12-LEAD 68 68 146 82 [phone] Normal sinus rhythm Possible Left atrial enlargement ST & T wave abnormality, consider anterior ischemia Abnormal ECG No previous ECGs available Clinical correlation is indicated Confirmed by Kp Rodriges ([id number]) on 07/06/2024 11:10:52 PM [email or web address]&Date= 06-07-2024&Time=20%3a11 %3a37%3a00&TestType=ECG &Site=3&OutputType=PDF& Ext=PDF Normal [facility] GFR, ESTIMATEDon 07-06-2024 GFR/1.73 sq M.predicted MDRD (S/P/Bld) [Vol rate/Area] 46 mL/min/{1.73_m2} Abnormal >60 [employer] Comment on above: Pediatric calculator link https://www.kidney.org/professionals/kdoqi/gfr_calculatorped [...] that affects renal tubular secretion. Performed at [facility] [place] [address] Result Comment: Pedi atric calculator link https://www.kidney.org/professionals/kdoqi/gfr_calculatorped [...] secretion. Performed By: #### P OCGL #### [facility] [address] [place] [address] GLUCOSE POCon 07-06-2024 Glucose [Mass/Vol] 280 mg/dL High 70-108 [facility] Comment on above: Performed at [facility] [address] [place] [address] Performed By: #### P OCGL #### [facility] [address] [place], [place] [id number] Glucose Auto test strip (Bld ) [Mass/Vol]on 07-06-2024 Interpretation and review of laboratory results Abnormal [facility] [employer] [facility] [employer] INR Coag (PPP) [Relative jackie e]on 07-06-2024 [facility] [employer] No Panel Informationon 07-06 Interpretation and review of laboratory results Abnormal [facility] [employer] [facility] [employer] PROTHOMBIN TIMEon 07-06-2024 INR Coag (Bld) [Relative time] 1.02 {INR} Normal 0.85-1.13 [facility] Comment on above: Result Comment: ---- -----INDICATION INR Reference Range DVT, PE, AF, AMI, tissue heart valve 2.0 to 3.0 Mechanical prosthetic valves 2.5 to 3.5 Performed By: #### P OCGL #### [facility] [address] [place] [address] Protime-INRon 07-06-2024 INR Coag (PPP) [Relative time] 1.02 {INR} 0.85 - 1.13 [facility] Comment on above: ---------INDICATION- INR Reference Range DVT, PE, AF, AMI, tissue heart valve 2.0 to 3.0 Mechanical prosthetic valves 2.5 to 3.5 Performed at [facility] [address] [place] [address] aPTT Coag (Bld) [Time]on aPTT Coag (PPP) [Time] 29.5 s [facility] Comment on above: Therapeutic Heparin Reference Range= 60-95 seconds (corresponds to 0.3 to 0.7 u/mL Anti-Xa factor activity) Performed at [facility] [address] [place] [address] Estimated glomerular filtrat ion rate (GFR) non- Americanon 06-27-2024 GFR/1.73 sq M.predicted among non-blacks MDRD (S/P/Bld) [Vol rate/Area] Estimated glomerular filtration rate (GFR) non- Low >=60 mL/min/1.73m 2 [facility] - Chemistry and C hemistry - challengeon 06-27-2024 Calcium [Mass/Vol] 9.8 mg/dL 8.5-10.1 [facility] Chloride [Moles/Vol] 101 mmol/L 98-107 [facility] CO2 [Moles/Vol] 28.6 mmol/L 21.0-32.0 [facility] Creatinine [Mass/Vol] 1.41 mg/dL High 0.55-1.02 [facility] GFR/1.73 sq M.predicted MDRD (S/P/Bld) [Vol rate/Area] 45 mL/min/{1.73_m2} Low >=60 mL/min/1.73m 2 [facility] Glucose [Mass/Vol] 66 mg/dL Low 74-106 [facility] Potassium [Moles/Vol] 5.1 mmol/L 3.5-5.1 [facility] Sodium [Moles/Vol] 139 mmol/L 136-145 [facility] Urea nitrogen [Mass/Vol] 29.0 mg/dL High 7.0-18.0 [facility] Urea nitrogen/Creatinine [Mass ratio] 20.6 mg/mg [facility] Bilirubin Ql (U) LARGE Abnormal NEGATIVE [facility] Glucose (U) [Mass/Vol] Negative NEGATIVE [facility] Ketones Ql (U) TRACE mg/dL Abnormal NEGATIVE [facility] pH (U) 5.5 [pH] 5.0-9.0 [facility] Specific gravity (U) [Rel density] 1.025 1.005-1.025 [facility] Urobilinogen Qn (U) 0.2 {Nela'U}/dL 0.2-1.0 [facility] - Specimen inform ationon 06-27-2024 Appearance (U) CLEAR CLEAR [facility] Color (U) YELLOW YELLOW [facility] - Urinalysison Leukocyte esterase Test strip Ql (U) Negative NEGATIVE [facility] Nitrite Ql (U) Negative NEGATIVE [facility] Protein Ql (U) Negative NEG/TRACE [facility] No Panel Informationon 06-27 Urine Microscopic Review NO [facility] Urine Occult Blood Negative NEGATIVE [facility] Serum or plasma anion gap de terminationon 06-27-2024 Anion gap [Moles/Vol] Serum or plasma anion gap determination [facility] No Panel Informationon 06-01 Miscellaneous Test COMMENT . [facility] Comment on above: Test Ordered: [id number] Aerobic Cult, Extended IncubAerobic Cult, Extended Incub [...] RPenicillin RRifampin STetracycline STrimethoprim/Sulfa SVancomycin SPerformed at: [facility] [id number] Director: Noam Haskins PhD, Phone: [phone] Basophils Auto (Bld) [#/Vol] on 05-31-2024 Basophils (Bld) [#/Vol] Automated basophil count 0.0-0.1 [facility] Basophils/100 WBC Auto (Bld) on 05-31-2024 Basophils/100 WBC (Bld) Automated basophil % 0.2-2.0 [facility] Eosinophils/100 WBC Auto (Bl d)on 05-31-2024 Eosinophils/100 WBC (Bld) Automated eosinophil % 0.9-7.0 [facility] Erythrocyte distribution wid th Auto (RBC) [Ratio]on 05-31-2024 Erythrocyte distribution width (RBC) [Ratio] Erythrocyte distribution width [Ratio] by Automated count 11.0-15.0 [facility] Hematocrit Auto (Bld) [Volum e fraction]on 05-31-2024 Hematocrit (Bld) [Volume fraction] Hematocrit [Volume Fraction] of Blood by Automated count 36.0-48.0 [facility] Hemoglobin [Mass/volume] in Bloodon 05-31-2024 Hemoglobin (Bld) [Mass/Vol] Hemoglobin [Mass/volume] in Blood 12.0-16.0 [facility] - Hematology and Cell countson 05-31-2024 ESR (Bld) [Velocity] 7 mm/h <=30 [facility] Immature granulocytes/100 WBC (Bld) 0.2 % 0.0-0.5 [facility] Leukocytes [#/volume] correc chip for nucleated erythrocytes in Blood by Automated counon 05-31-2024 WBC corrected for nucl RBC Auto (Bld) [#/Vol] Leukocytes [#/volume] corrected for nucleated erythrocytes in Blood by Automated coun 4.0-11.0 [facility] Lymphocytes Auto (Bld) [#/Vo l]on 05-31-2024 Lymphocytes (Bld) [#/Vol] Lymphocytes [#/volume] in Blood by Automated count 1.2-3.8 [facility] Lymphocytes/100 WBC Auto (Bl d)on 05-31-2024 Lymphocytes/100 WBC (Bld) Lymphocytes/100 leukocytes in Blood by Automated count 20.5-60.0 [facility] MCH Auto (RBC) [Entitic mass ]on 05-31-2024 MCH (RBC) [Entitic mass] MCH [Entitic mass] by Automated count 26.7-34.0 [facility] MCHC Auto (RBC) [Mass/Vol]on 05-31-2024 MCHC (RBC) [Mass/Vol] MCHC [Mass/volume] by Automated count 29.9-35.2 [facility] MCV Auto (RBC) [Entitic vol] on 05-31-2024 MCV (RBC) [Entitic vol] MCV [Entitic volume] by Automated count 81.0-99.0 [facility] Monocytes Auto (Bld) [#/Vol] on 05-31-2024 Monocytes (Bld) [#/Vol] Automated blood monocyte count 0.3-0.8 [facility] Monocytes/100 WBC Auto (Bld) on 05-31-2024 Monocytes/100 WBC (Bld) Automated monocyte % 1.7-12.0 [facility] Neutrophils Auto (Bld) [#/Vo l]on 05-31-2024 Neutrophils (Bld) [#/Vol] Neutrophils [#/volume] in Blood by Automated count 1.4-6.5 [facility] Neutrophils/100 WBC Auto (Bl d)on 05-31-2024 Neutrophils/100 WBC (Bld) Automated neutrophil % 43.0-75.0 [facility] No Panel Informationon 05-31 C-Reactive Protein, Quantitative <0.50 mg/dL <=0.50 [facility] Eosinophils # (Auto) 0.1 10 3/uL 0.0-0.7 [facility] Immature Granulocyte # (Auto) 0.01 10 3/uL 0.00-0.03 [facility] Platelet mean volume Auto (B ld) [Entitic vol]on 05-31-2024 Platelet mean volume (Bld) [Entitic vol] Platelet mean volume [Entitic volume] in Blood by Automated count Low 9.5-13.5 [facility] Platelets Auto (Bld) [#/Vol] on 05-31-2024 Platelets (Bld) [#/Vol] Platelets [#/volume] in Blood by Automated count 150-450 [facility] RBC Auto (Bld) [#/Vol]on RBC (Bld) [#/Vol] Erythrocytes [#/volu me] in Blood by Automated count 4.20-5.40 [facility] Basophils Auto (Bld) [#/Vol] on 12-27-2023 Basophils (Bld) [#/Vol] 0.1 10 3/uL 0.0-0.1 [facility] Basophils/100 WBC Auto (Bld) on 12-27-2023 Basophils/100 WBC (Bld) 1.0 % 0.2-2.0 [facility] Cholesterol in LDL Calc [Mas s/Vol]on 12-27-2023 Cholesterol in LDL [Mass/Vol] 63.0 mg/dL [facility] Comment on above: <100 mg/dl [id number] 0-129 mg/dl NEAR OR ABOVE [id number] mg/dl BORDERLINE [id number] mg/dl HIGH>190 mg/dl VERY HIGH Cholesterol in VLDL Calc [Ma ss/Vol]on 12-27-2023 Cholesterol in VLDL [Mass/Vol] 45.8 mg/dL [facility] Eosinophils/100 WBC Auto (Bl d)on 12-27-2023 Eosinophils/100 WBC (Bld) 8.3 % High 0.9-7.0 [facility] Erythrocyte distribution wid th Auto (RBC) [Ratio]on 12-27-2023 Erythrocyte distribution width (RBC) [Ratio] 11.9 % 11.0-15.0 [facility] Estimated glomerular filtrat ion rate (GFR) non- Americanon 12-27-2023 GFR/1.73 sq M.predicted among non-blacks MDRD (S/P/Bld) [Vol rate/Area] 47 mL/min/{1.73_m2} Low >=60 [facility] Globulin Calc (S) [Mass/Vol] on 12-27-2023 Globulin (S) [Mass/Vol] 3.2 g/dL [facility] Glucose mean value [Mass/vol ume] in Blood Estimated from glycated hemoglobinon 12-27-2023 Average glucose Estimated from glycated hemoglobin (Bld) [Mass/Vol] 143 mg/dL [facility] Hematocrit Auto (Bld) [Volum e fraction]on 12-27-2023 Hematocrit (Bld) [Volume fraction] 39.7 % 36.0-48.0 [facility] Hemoglobin [Mass/volume] in Bloodon 12-27-2023 Hemoglobin (Bld) [Mass/Vol] 12.9 g/dL 12.0-16.0 [facility] - Chemistry and C hemistry - challengeon 12-27-2023 Albumin [Mass/Vol] 3.7 g/dL 3.4-5.0 [facility] ALP [Catalytic activity/Vol] 61 U/L 46-116 [facility] ALT [Catalytic activity/Vol] 36 U/L 14-59 [facility] AST [Catalytic activity/Vol] 24 U/L 15-37 [facility] Bilirubin [Mass/Vol] 0.6 mg/dL 0.2-1.0 [facility] Calcium [Mass/Vol] 9.2 mg/dL 8.5-10.1 [facility] Chloride [Moles/Vol] 101 mmol/L 98-107 [facility] Cholesterol [Mass/Vol] 146 mg/dL <=200 [facility] Cholesterol in HDL [Mass/Vol] 38 mg/dL Low 40-60 [facility] Comment on above: > or =60 mg/dl - LOW CARDIOVASCULAR RISK<40 mg/dl - HIGH CARDIOVASCULAR RISK CO2 [Moles/Vol] 26.8 mmol/L 21.0-32.0 [facility] Creatinine [Mass/Vol] 1.17 mg/dL High 0.55-1.02 [facility] GFR/1.73 sq M.predicted MDRD (S/P/Bld) [Vol rate/Area] 56 mL/min/{1.73_m2} Low >=60 [facility] Glucose [Mass/Vol] 138 mg/dL High 74-106 [facility] Potassium [Moles/Vol] 4.5 mmol/L 3.5-5.1 [facility] Protein [Mass/Vol] 6.9 g/dL 6.4-8.2 [facility] Sodium [Moles/Vol] 138 mmol/L 136-145 [facility] Triglyceride [Mass/Vol] 229 mg/dL High <=150 [facility] TSH Qn 0.834 m[IU]/L 0.358-3.740 [facility] Urea nitrogen [Mass/Vol] 23.0 mg/dL High 7.0-18.0 [facility] Urea nitrogen/Creatinine [Mass ratio] 19.7 mg/mg [facility] Laboratory - Hematology and Cell countson 12-27-2023 HbA1c (Bld) [Mass fraction] 6.6 % High 4.5-6.2 [facility] Comment on above: ADA RECOMMENDED LIMI T 4.0 - 6.0ADA THERAPEUTIC TARGET < 7.0ACTION SUGGESTED> 7.0 Immature granulocytes/100 WBC (Bld) 0.4 % 0.0-0.5 [facility] Leukocytes [#/volume] correc chip for nucleated erythrocytes in Blood by Automated counon 12-27-2023 WBC corrected for nucl RBC Auto (Bld) [#/Vol] 5.2 10 3/uL 4.0-11.0 [facility] Lymphocytes Auto (Bld) [#/Vo l]on 12-27-2023 Lymphocytes (Bld) [#/Vol] 2.2 10 3/uL 1.2-3.8 [facility] Lymphocytes/100 WBC Auto (Bl d)on 12-27-2023 Lymphocytes/100 WBC (Bld) 42.1 % 20.5-60.0 [facility] MCH Auto (RBC) [Entitic mass ]on 12-27-2023 MCH (RBC) [Entitic mass] 28.5 pg 26.7-34.0 [facility] MCHC Auto (RBC) [Mass/Vol]on 12-27-2023 MCHC (RBC) [Mass/Vol] 32.5 g/dL 29.9-35.2 [facility] MCV Auto (RBC) [Entitic vol] on 12-27-2023 MCV (RBC) [Entitic vol] 87.8 fL 81.0-99.0 [facility] Monocytes Auto (Bld) [#/Vol] on 12-27-2023 Monocytes (Bld) [#/Vol] 0.3 10 3/uL 0.3-0.8 [facility] Monocytes/100 WBC Auto (Bld) on 12-27-2023 Monocytes/100 WBC (Bld) 6.4 % 1.7-12.0 [facility] Neutrophils Auto (Bld) [#/Vo l]on 12-27-2023 Neutrophils (Bld) [#/Vol] 2.2 10 3/uL 1.4-6.5 [facility] Neutrophils/100 WBC Auto (Bl d)on 12-27-2023 Neutrophils/100 WBC (Bld) 41.8 % Low 43.0-75.0 [facility] No Panel Informationon 12-26 Eosinophils # (Auto) 0.4 10 3/uL 0.0-0.7 [facility] Immature Granulocyte # (Auto) 0.02 10 3/uL 0.00-0.03 [facility] Platelet mean volume Auto (B ld) [Entitic vol]on 12-27-2023 Platelet mean volume (Bld) [Entitic vol] 9.6 fL 9.5-13.5 [facility] Platelets Auto (Bld) [#/Vol] on 12-27-2023 Platelets (Bld) [#/Vol] 190 10 3/uL 150-450 [facility] RBC Auto (Bld) [#/Vol]on RBC (Bld) [#/Vol] 4.52 10 6/uL 4.20-5.40 [facility] Serum or plasma albumin/glob ulin mass ratioon 12-27-2023 Albumin/Globulin [Mass ratio] 1.2 {ratio} [facility] Serum or plasma anion gap de terminationon 12-27-2023 Anion gap [Moles/Vol] 14.7 mmol/L [facility] Serum or plasma total choles terol/high density lipoprotein (HDL) cholesterol mass desiree 12-27-2023 Cholesterol.total/Ch olesterol in HDL [Mass ratio] 3.8 {ratio} [facility] Comment on above: 3.3 - 4.4 [...] BERNY QUISPE Date: 2022-08-24 07:19 Normal [facility] CBC AUTO DIFFon 03-30-2022 BASO # 0.0 103/ul Normal 0.0-0.1 [facility] Comment on above: Performed By: #### C BC #### [facility] [address] [address] [address] Rc Foster Basophils/100 WBC (Bld) 0.4 % Normal 0.2-2.0 [facility] Comment on above: Performed By: #### C BC #### [facility] [address] [address] [address] Rc Foster EO # 0.3 103/ul Normal 0.0-0.7 [facility] Comment on above: Performed By: #### C BC #### [facility] [address] [place] [address] Dr. Rc Foster Eosinophils/100 WBC (Bld) 4.9 % Normal 0.9-7.0 [facility] Comment on above: Performed By: #### C BC #### [facility] [address] [place] [address] Dr. Rc Foster Erythrocyte distribution width (RBC) [Ratio] 12.2 % Normal 11.0-15.0 [facility] Comment on above: Performed By: #### C BC #### [facility] [address] [place] [address] Dr. Rc Foster Hematocrit (Bld) [Volume fraction] 39.8 % Normal 36.0-48.0 [facility] Comment on above: Performed By: #### C BC #### [facility] [address] [address] [address] Rc Foster Hemoglobin (Bld) [Mass/Vol] 13.1 g/dL Normal 12.0-16.0 [facility] Comment on above: Performed By: #### C BC #### [facility] [address] [place] [address] Dr. Rc Foster IG # 0.02 10e3/ul Normal 0.00-0.03 [facility] Comment on above: Performed By: #### C BC #### [facility] [address] [place] [address] Dr. Rc Foster IG % 0.4 % Normal 0.0-0.5 [facility] Comment on above: Performed By: #### C BC #### [facility] [address] [place] [address] Dr. Rc Foster LYMPH # 2.1 103/ul Normal 1.2-3.8 [facility] Comment on above: Performed By: #### C BC #### [facility] [address] [place] [address] Dr. Rc Foster Lymphocytes/100 WBC (Bld) 37.1 % Normal 20.5-60.0 [facility] Comment on above: Performed By: #### C BC #### [facility] [address] [place] [address] Dr. Rc Foster MANUAL DIFF REQ NO Normal [facility] Comment on above: Performed By: #### C BC #### [facility] [address] [place] [address] Dr. Rc Foster MCH (RBC) [Entitic mass] 28.7 pg Normal 26.7-34.0 [facility] Comment on above: Performed By: #### C BC #### [facility] [address] [place] [address] Dr. Rc Foster MCHC (RBC) [Mass/Vol] 32.9 g/dL Normal 29.9-35.2 [facility] Comment on above: Performed By: #### C BC #### [facility] [address] [place] [address] Dr. Rc Foster MCV (RBC) [Entitic vol] 87.1 fL Normal 81.0-99.0 [facility] Comment on above: Performed By: #### C BC #### [facility] [address] [place] [address] Dr. Rc Foster MONO # 0.4 103/ul Normal 0.3-0.8 [facility] Comment on above: Performed By: #### C BC #### [facility] [address] [place] [address] Dr. Rc Foster Monocytes/100 WBC (Bld) 6.7 % Normal 1.7-12.0 [facility] Comment on above: Performed By: #### C BC #### [facility] [address] [place] [address] Dr. Rc Foster NEUT # 2.9 103/ul Normal 1.4-6.5 [facility] Comment on above: Performed By: #### C BC #### [facility] [address] [place] [address] Dr. Rc Foster Neutrophils/100 WBC (Bld) 50.5 % Normal 43.0-75.0 [facility] Comment on above: Performed By: #### C BC #### [facility] [address] [place] [address] Dr. Rc Foster Platelet mean volume (Bld) [Entitic vol] 9.7 fL Normal 9.5-13.5 [facility] Comment on above: Performed By: #### C BC #### [facility] [address] [place] [address] Dr. Rc Foster PLT 189 103/ul Normal 150-450 [facility] Comment on above: Performed By: #### C BC #### [facility] [address] [place] [address] Dr. Rc Foster RBC 4.57 106/ul Normal 4.20-5.40 [facility] Comment on above: Performed By: #### C BC #### [facility] [address] [place] [address] Dr. Rc Foster WBC 5.7 103/ul Normal 4.0-11.0 [facility] Comment on above: Performed By: #### C BC #### [facility] [address] [place] [address] Dr. Rc Foster GLYCOHEMOGLOBIN A1Con 2021 ADA RECOMMENDATION SEE BELOW Normal [facility] Comment on above: Result Comment: ADA RECOMMENDED LIMIT 4.0 - 6.0 ADA THERAPEUTIC TARGET < 7.0 ACTION SUGGESTED > 7.0 Performed By: #### A 1C #### [facility] [address] [address] [address] Rc Foster Glucose [Mass/Vol] 143 mg/dL Normal [facility] Comment on above: Performed By: #### A 1C #### [facility] [address] [address] [address] Rc Foster HbA1c (Bld) [Mass fraction] 6.6 % Critically high 4.5-6.2 [facility] Comment on above: Performed By: #### A 1C #### [facility] [address] [address] [address] Rc Foster LIPID PROFILEon 03-30-2022 CHOL-HDL RATIO NORM SEE BELOW Normal [facility] Comment on above: Result Comment: 3.3 - 4.4 LOW RISK 4.4 - 7.1 AVERAGE RISK 7.1 - 11.0 MODERATE RISK >11.0 HIGH RISK Performed By: #### T SH, CMP, LIPID ####[facility] [address] [id number]. Rc Foster Cholesterol [Mass/Vol] 184 mg/dL Normal <=200 [facility] Comment on above: Performed By: #### T SH, CMP, LIPID ####[facility] [address] [phone] Foster Cholesterol in HDL [Mass/Vol] 42 mg/dL Normal 40-60 [facility] Comment on above: Performed By: #### T SH, CMP, LIPID ####[facility] [address] [phone]. Rc Foster Cholesterol in LDL [Mass/Vol] 87.0 mg/dL Normal [facility] Comment on above: Performed By: #### T SH, CMP, LIPID ####[facility] [address] [id number]. Rc Foster Cholesterol.total/Ch olesterol in HDL [Mass ratio] 4.4 {ratio} Normal [facility] Comment on above: Performed By: #### T SH, CMP, LIPID ####[facility] [address] [phone]. Rc Foster HDL NORMAL > or = 60 mg/dl - LO W CARDIOVASCULAR RISK <40 mg/dl - HIGH CARDIOVASCULAR RISK Normal [facility] Comment on above: Performed By: #### T SH, CMP, LIPID ####[facility] [address] [phone]. Rc Foster LDL CALC NORMAL SEE BELOW Normal [facility] Comment on above: Result Comment: <100 mg/dl OPTIMAL 100 - 129 mg/dl NEAR OR ABOVE OPTIMAL 130 - 159 mg/dl BORDERLINE HIGH 160 - 189 mg/dl HIGH >190 mg/dl VERY HIGH Performed By: #### T SH, CMP, LIPID ####[facility] [address] [phone]. Rc Foster Triglyceride [Mass/Vol] 275 mg/dL Critically high <=150 [facility] Comment on above: Performed By: #### T SH, CMP, LIPID ####[facility] [address] [phone]. Rc Foster VLDL CALC 55.0 mg/dL Normal [facility] Comment on above: Performed By: #### T MARY JANE, CMP, LIPID ####[facility] [address] [phone]. Rc Foster PROF 14(COMP METB)on 022 Albumin [Mass/Vol] 4.0 g/dL Normal 3.4-5.0 [facility] Comment on above: Performed By: #### T MARY JNAE, CMP, LIPID ####[facility] [address] [phone]. Rc Foster Albumin/Globulin [Mass ratio] 1.1 {ratio} Normal [facility] Comment on above: Performed By: #### T SH, CMP, LIPID ####[facility] [address] [phone]. Rc Foster ALP [Catalytic activity/Vol] 71 U/L Normal 46-116 [facility] Comment on above: Performed By: #### T SH, CMP, LIPID ####[facility] [address] [phone]. Rc Foster ALT [Catalytic activity/Vol] 29 U/L Normal 14-59 [facility] Comment on above: Performed By: #### T SH, CMP, LIPID ####[facility] [address] [address]Dr. Rc Foster Anion gap [Moles/Vol] 13.2 mmol/L Normal [facility] Comment on above: Performed By: #### T SH, CMP, LIPID ####[facility] [address] [address]Dr. Rc Foster AST [Catalytic activity/Vol] 17 U/L Normal 15-37 [facility] Comment on above: Performed By: #### T SH, CMP, LIPID ####[facility] [address] [address]Dr. Rc Foster Bilirubin [Mass/Vol] 0.6 mg/dL Normal 0.2-1.0 [facility] Comment on above: Performed By: #### T SH, CMP, LIPID ####[facility] [address] [place], [place] [address]Dr. Rc Foster Calcium [Mass/Vol] 9.0 mg/dL Normal 8.5-10.1 [facility] Comment on above: Performed By: #### T SH, CMP, LIPID ####[facility] [address] [place], [place] [address]Dr. Rc Foster Chloride [Moles/Vol] 102 mmol/L Normal 98-107 [facility] Comment on above: Performed By: #### T SH, CMP, LIPID ####[facility] [address] [place], [place] [address]Dr. Rc Foster CO2 [Moles/Vol] 27.3 mmol/L Normal 21.0-32.0 [facility] Comment on above: Performed By: #### T SH, CMP, LIPID ####[facility] [address] [place], [place] [address]Dr. Rc Foster Creatinine [Mass/Vol] 1.00 mg/dL Normal 0.55-1.02 [facility] Comment on above: Performed By: #### T SH, CMP, LIPID ####[facility] [address] [address]Dr. Rc Foster EGFR-AF IVORIAN >60 Normal >=60 [facility] Comment on above: Performed By: #### T SH, CMP, LIPID ####[facility] [address] [address]Dr. Rc Foster EGFR-NON AF IVORIAN 56 mL/min/1.73m2 Critically low >=60 [facility] Comment on above: Performed By: #### T SH, CMP, LIPID ####[facility] [address] [address]Dr. Rc Foster Globulin (S) [Mass/Vol] 3.5 g/dL Normal [facility] Comment on above: Performed By: #### T SH, CMP, LIPID ####[facility] [address] [address]Dr. Rc Foster Glucose [Mass/Vol] 159 mg/dL Critically high 74-106 [facility] Comment on above: Performed By: #### T SH, CMP, LIPID ####[facility] [address] [address]Dr. Siribreanna Foster Potassium [Moles/Vol] 4.5 mmol/L Normal 3.5-5.1 [facility] Comment on above: Performed By: #### T SH, CMP, LIPID ####[facility] [address] [address]Dr. Rc Foster Protein [Mass/Vol] 7.5 g/dL Normal 6.4-8.2 [facility] Comment on above: Performed By: #### T SH, CMP, LIPID ####[facility] [address] [address]Dr. Rc Foster Sodium [Moles/Vol] 138 mmol/L Normal 136-145 [facility] Comment on above: Performed By: #### T SH, CMP, LIPID ####[facility] [address] [address]Dr. Siribreanna Foster Urea nitrogen [Mass/Vol] 23.0 mg/dL Critically high 7.0-18.0 [facility] Comment on above: Performed By: #### T SH, CMP, LIPID ####[facility] [address] [place], [place] [address]Us. Rc Foster Urea nitrogen/Creatinine [Mass ratio] 23.0 mg/mg Normal [facility] Comment on above: Performed By: #### T SH, CMP, LIPID ####[facility] [address] [place], [place] [address]Ls. Rc Foster TSHon 03-30-2022 TSH 2.807 uIU/mL Normal 0.358-3.740 [facility] Comment on above: Performed By: #### T SH, CMP, LIPID ####[facility] [address] [place], [place] [address]Ud. Rc Foster US THYROIDon 03-30-2022 US THYROID [...] by: BERNY QUISPE Date: 2022-03-30 11:03 Normal [facility] MG MAMM SCREEN 3D LEX CADon 03-19-2022 MG MAMM SCREEN 3D LEX CAD Patient: CARROLL FUENTES Exam Date: 03/19/2022 : 1960 Gender:F Ordering : DR ROBERT VILLASENOR D.O. Admission #: [id number] Family : Order #: [id number] CLICK HERE TO VIEW EXAM RADIOLOGY REPORT [...] Treatments None Family Cancers None LOCATION: [facility] BREAST COMPOSITION: Scattered areas fibroglandular [...] M.D. on 03/23/2022 at 11:59 Normal [facility] CBC AUTO DIFFon 11-27-2021 BASO # 0.0 103/ul Normal 0.0-0.1 [facility] Comment on above: Performed By: #### C BC #### [facility] [address] [place] [address] Dr. Rc Foster Basophils/100 WBC (Bld) 0.7 % Normal 0.2-2.0 [facility] Comment on above: Performed By: #### C BC #### [facility] [address] [place] [address] Dr. Rc Foster EO # 0.6 103/ul Normal 0.0-0.7 [facility] Comment on above: Performed By: #### C BC #### [facility] [address] [place] [address] Dr. Rc Foster Eosinophils/100 WBC (Bld) 10.3 % Critically high 0.9-7.0 [facility] Comment on above: Performed By: #### C BC #### [facility] [address] [place] [address] Dr. Rc Foster Erythrocyte distribution width (RBC) [Ratio] 12.4 % Normal 11.0-15.0 [facility] Comment on above: Performed By: #### C BC #### [facility] [address] [place] [address] Dr. Rc Foster Hematocrit (Bld) [Volume fraction] 41.2 % Normal 36.0-48.0 [facility] Comment on above: Performed By: #### C BC #### [facility] [address] [place] [address] Dr. Rc Foster Hemoglobin (Bld) [Mass/Vol] 13.4 g/dL Normal 12.0-16.0 [facility] Comment on above: Performed By: #### C BC #### [facility] [address] [place] [address] Dr. Rc Foster IG # 0.01 10e3/ul Normal 0.00-0.03 [facility] Comment on above: Performed By: #### C BC #### [facility] [address] [place] [address] Dr. Rc Foster IG % 0.2 % Normal 0.0-0.5 [facility] Comment on above: Performed By: #### C BC #### [facility] [address] [place] [address] Dr. Rc Foster LYMPH # 2.3 103/ul Normal 1.2-3.8 [facility] Comment on above: Performed By: #### C BC #### [facility] [address] [place] [address] Dr. Rc Foster Lymphocytes/100 WBC (Bld) 40.6 % Normal 20.5-60.0 [facility] Comment on above: Performed By: #### C BC #### [facility] [address] [place] [address] Dr. Rc Foster MANUAL DIFF REQ NO Normal [facility] Comment on above: Performed By: #### C BC #### [facility] [address] [place] [address] Dr. Rc Foster MCH (RBC) [Entitic mass] 28.8 pg Normal 26.7-34.0 [facility] Comment on above: Performed By: #### C BC #### [facility] [address] [place] [address] Dr. Rc Foster MCHC (RBC) [Mass/Vol] 32.5 g/dL Normal 29.9-35.2 [facility] Comment on above: Performed By: #### C BC #### [facility] [address] [place] [address] Dr. Rc Foster MCV (RBC) [Entitic vol] 88.6 fL Normal 81.0-99.0 [facility] Comment on above: Performed By: #### C BC #### [facility] [address] [place] [address] Dr. Rc Foster MONO # 0.4 103/ul Normal 0.3-0.8 [facility] Comment on above: Performed By: #### C BC #### [facility] [address] [place] [address] Dr. Rc Foster Monocytes/100 WBC (Bld) 7.6 % Normal 1.7-12.0 [facility] Comment on above: Performed By: #### C BC #### [facility] [address] [place] [address] Dr. Rc Foster NEUT # 2.3 103/ul Normal 1.4-6.5 [facility] Comment on above: Performed By: #### C BC #### [facility] [address] [place] [address] Dr. Rc Foster Neutrophils/100 WBC (Bld) 40.6 % Critically low 43.0-75.0 [facility] Comment on above: Performed By: #### C BC #### [facility] [address] [place] [address] Dr. Rc Foster Platelet mean volume (Bld) [Entitic vol] 9.6 fL Normal 9.5-13.5 [facility] Comment on above: Performed By: #### C BC #### [facility] [address] [place] [address] Dr. Rc Foster PLT 194 103/ul Normal 150-450 [facility] Comment on above: Performed By: #### C BC #### [facility] [address] [place] [address] Dr. Rc Foster RBC 4.65 106/ul Normal 4.20-5.40 [facility] Comment on above: Performed By: #### C BC #### [facility] [address] [place] [address] Dr. Rc Foster WBC 5.5 103/ul Normal 4.0-11.0 [facility] Comment on above: Performed By: #### C BC #### [facility] [address] [place] [address] Dr. Rc Foster GLYCOHEMOGLOBIN A1Con 2021 ADA RECOMMENDATION SEE BELOW Normal [facility] Comment on above: Result Comment: ADA RECOMMENDED LIMIT 4.0 - 6.0 ADA THERAPEUTIC TARGET < 7.0 ACTION SUGGESTED > 7.0 Performed By: #### A 1C #### [facility] [address] [place] [address] Dr. Rc Foster Glucose [Mass/Vol] 131 mg/dL Normal [facility] Comment on above: Performed By: #### A 1C #### [facility] [address] [place] [address] Dr. Rc Foster HbA1c (Bld) [Mass fraction] 6.2 % Normal 4.5-6.2 [facility] Comment on above: Performed By: #### A 1C #### [facility] [address] [place] [address] Dr. Rc Foster PROF CHEM 8 (BAS METB)on Anion gap [Moles/Vol] 15.2 mmol/L Normal [facility] Comment on above: Performed By: #### T SH, BMP #### [facility] [address] [place] [address] Dr. Rc Foster Calcium [Mass/Vol] 8.5 mg/dL Normal 8.5-10.1 [facility] Comment on above: Performed By: #### T SH, BMP #### [facility] [address] [address] [address] Rc Foster Chloride [Moles/Vol] 100 mmol/L Normal 98-107 [facility] Comment on above: Performed By: #### T SH, BMP #### [facility] [address] [address] [address] Rc Foster CO2 [Moles/Vol] 26.6 mmol/L Normal 21.0-32.0 [facility] Comment on above: Performed By: #### T MARY JANE, BMP #### [facility] [address] [place] [address] Dr. Rc Foster Creatinine [Mass/Vol] 1.15 mg/dL Critically high 0.55-1.02 [facility] Comment on above: Performed By: #### T MARY JANE, BMP #### [facility] [address] [place] [address] Dr. Rc Foster EGFR-AF IVORIAN 58 mL/min/1.73m2 Critically low >=60 [facility] Comment on above: Performed By: #### T MARY JANE, BMP #### [facility] [address] [place] [address] Dr. Rc Foster EGFR-NON AF IVORIAN 48 mL/min/1.73m2 Critically low >=60 [facility] Comment on above: Performed By: #### T MARY JANE, BMP #### [facility] [address] [place] [address] Dr. Rc Foster Glucose [Mass/Vol] 211 mg/dL Critically high 74-106 [facility] Comment on above: Performed By: #### T SH, BMP #### [facility] [address] [place] [address] Dr. Rc Foster Potassium [Moles/Vol] 4.8 mmol/L Normal 3.5-5.1 [facility] Comment on above: Performed By: #### T MARY JANE, BMP #### [facility] [address] [address] [address] Rc Foster Sodium [Moles/Vol] 137 mmol/L Normal 136-145 [facility] Comment on above: Performed By: #### T MARY JANE, BMP #### [facility] [address] [address] [address] Rc Foster Urea nitrogen [Mass/Vol] 33.0 mg/dL Critically high 7.0-18.0 [facility] Comment on above: Performed By: #### T SH, BMP #### [facility] [address] [address] [address] Rc Foster Urea nitrogen/Creatinine [Mass ratio] 28.7 mg/mg Normal [facility] Comment on above: Performed By: #### T MARY JANE, BMP #### [facility] [address] [place] [address] Dr. Rc Foster TSHon 11-27-2021 TSH 0.744 uIU/mL Normal 0.358-3.740 [facility] Comment on above: Performed By: #### T SH, BMP #### [facility] [address] [place] [address] Dr. Rc Foster SYMPTOMATIC COVID-19 ANTIGEN on 10-28-2021 EUA Statement SEE BELOW Normal [facility] Comment on above: Result Comment: This test [...] revoked sooner. Performed By: #### C VDAGS ####[facility] [address] [address]Dr. Rc Foster SARS-CoV-2 (COVID-19) RNA YARED+probe Ql (Unsp spec) Negative Normal NEGATIVE [facility] Comment on above: Performed By: #### C VDAGS ####[facility] [address] [place], [place] [address]NnDr. Rc Foster GLYCOHEMOGLOBIN A1Con 2021 ADA RECOMMENDATION SEE BELOW Normal [facility] Comment on above: Result Comment: ADA RECOMMENDED LIMIT 4.0 - 6.0 ADA THERAPEUTIC TARGET < 7.0 ACTION SUGGESTED > 7.0 Performed By: #### A 1C #### [facility] [address] [place], [place] [address] Dr. Rc Foster Glucose [Mass/Vol] 128 mg/dL Normal [facility] Comment on above: Performed By: #### A 1C #### [facility] [address] [place], [place] [address] Dr. Rc Foster HbA1c (Bld) [Mass fraction] 6.1 % Normal 4.5-6.2 [facility] Comment on above: Performed By: #### A 1C #### [facility] [address] [place], [place] [address] Dr. Rc Foster Discharge CCD Assessmenton 0 09-06-2020 Discharge CCD Assessment [facility] Patient: CARROLL FUENTES [facility] [place] [address] MR#: [id number] DISCHARGE CCD ASSESSMENT : 58 Service Date: 09/06/20 1018 Discharge CCD Assessment Assessment Patient discharged home to continue exercises, pain medication, and wound care Electronically Signed eSign Date and Time Melyssa Flores 09/06/20 1019 Tera Hernandez MD Normal [facility] GLUCOSE METERon 09-06-2020 Glucose [Mass/Vol] 126 mg/dL High 70-99 [facility] Comment on above: Order Comment: CONSE RVATION Result Comment: Fast ing GLUCOSE reference range has been updated per (ADA) [place] [employer]'s recommendation. 07/18/2018 Performed By: #### L 500.02434 ####Test performed at: [place] [address] Glucose [Mass/Vol] 205 mg/dL High 70-99 [facility] Comment on above: Order Comment: CONSE RVATION Result Comment: Fast ing GLUCOSE reference range has been updated per (ADA) [place] [employer]'s recommendation. 07/18/2018 Insulin per sl scale Performed By: #### L 500.74172 #### Test performed at: [place] [address] [place] [address] Internal Med Progress Noteon 09-06-2020 Internal Med Progress Note [facility] Patient: CARROLL FUENTES [address] [place] [address] MR#: [id number] PROGRESS NOTE - Internal Medicine : 58 [...] Flanagan RES, Katarzyna MD 09/06/20 1134 Normal [facility] Orthopedic Progress Noteon 0 09-06-2020 Orthopedic Progress Note [facility] Patient: CARROLL FUENTES [facility] [place] [address] MR#: [id number] PROGRESS NOTE - Orthopedic : 58 Service [...] RN 09/06/20 1022 Tera Hernandez MD Normal [facility] Anesthesia Noteon 09-05-2020 Anesthesia Note [facility] Patient: CARROLL FUENTES [address] [place] [address] MR#: [id number] ANESTHESIA NOTE : Service Date: 09/05/20811 Post-anesthesia [...] Signed eSign Date and Time Krystian Akers APRN-UNBUNDLER 09/05/20 0813 Chu Glez MD Normal [facility] BASIC MET PANELon 09-05-2020 Anion gap [Moles/Vol] 12 mmol/L Normal 6-18 [facility] Comment on above: Performed By: #### L 500.59585, L500.23542 #### Test performed at: [address] [address] Calcium [Mass/Vol] 8.7 mg/dL Normal 8.5-10.1 [facility] Comment on above: Performed By: #### L 500.57520, L500.81394 #### Test performed at: [address] [address] Chloride [Moles/Vol] 101 mmol/L Normal 98-107 [facility] Comment on above: Performed By: #### L 500.12953, L500.34767 #### Test performed at: [address] [address] CO2 [Moles/Vol] 25 mmol/L Normal 21-32 [facility] Comment on above: Performed By: #### L 500.48416, L500.56538 #### Test performed at: [address] [address] Creatinine [Mass/Vol] 1.020 mg/dL Normal 0.550-1.020 [facility] Comment on above: Performed By: #### L 500.22462, L500.05174 #### Test performed at: [address] [address] Glucose [Mass/Vol] 264 mg/dL High 70-99 [facility] Comment on above: Result Comment: Fast ing GLUCOSE reference range has been updated per (ADA) [place] [employer]'s recommendation. 07/18/2018 Performed By: #### L 500.39805, L500.02712 #### Test performed at: [place] [address] [address] OSM 289 mosm/kg Normal 270-300 [facility] Comment on above: Performed By: #### L 500.49026, L500.57338 #### Test performed at: [address] [address] Potassium [Moles/Vol] 4.5 mmol/L Normal 3.5-5.1 [facility] Comment on above: Performed By: #### L 500.54695, L500.91288 #### Test performed at: [address] [address] Sodium [Moles/Vol] 134 mmol/L Low 136-145 [facility] Comment on above: Performed By: #### L 500.92939, L500.50589 #### Test performed at: [place] [id number] Urea nitrogen [Mass/Vol] 17 mg/dL Normal 7-18 [facility] Comment on above: Performed By: #### L 500.71478, L500.03344 #### Test performed at: [place] [id number] GFR ESTIMATEon 09-05-2020 IF AMER > 60 Normal > 60 [facility] Comment on above: Result Comment: eGFR (Estimated GFR) Units of measure:mL/min/1.73 meters sq. *CALCULATION REVISED 02/11/2015;IDMS-traceable MDRD equation eGFR is derived from the reexpressed MDRD Study equation using the following parameters: serum creatinine, age, gender and race. An eGFR<60 mL/min/1.73m2 for >3 months is consistent with chronic kidney disease. Refer to KDOQI guidelines for clinical interpretation. Performed By: #### L 500.49582, L500.61972 #### Test performed at: [place] [id number] IF non-AFR AMER 55 Low > 60 [facility] Comment on above: Performed By: #### L 500.03753, L500.43435 #### Test performed at: [place] [address] [place] [address] GLUCOSE METERon 09-05-2020 Glucose [Mass/Vol] 177 mg/dL High 70-99 [facility] Comment on above: Order Comment: CONSE RVATION Result Comment: Fast ing GLUCOSE reference range has been updated per (ADA) [place] Diabetes [employer]'s recommendation. 07/18/2018 Performed By: #### L 500.02068 #### Test performed at: [address] [address] Glucose [Mass/Vol] 310 mg/dL High 70-99 [facility] Comment on above: Result Comment: Fast ing GLUCOSE reference range has been updated per (ADA) [place] Diabetes [employer]'s recommendation. 07/18/2018 Insulin per sl scale Performed By: #### L 500.93327 ####Test performed at: [address] [address] Glucose [Mass/Vol] 281 mg/dL High 70-99 [facility] Comment on above: Result Comment: Fast ing GLUCOSE reference range has been updated per (ADA) [place] Diabetes [employer]'s recommendation. 07/18/2018 Insulin per sl scale Performed By: #### L 500.42659 #### Test performed at: [address] [address] Glucose [Mass/Vol] 105 mg/dL High 70-99 [facility] Comment on above: Result Comment: Fast ing GLUCOSE reference range has been updated per (ADA) [place] Diabetes [employer]'s recommendation. 07/18/2018 Performed By: #### L 500.17628 #### Test performed at: [place] [address] [place] [address] HGB AND HCTon 09-05-2020 Hematocrit (Bld) [Volume fraction] 37.5 % Normal 36.0-48.0 [facility] Comment on above: Performed By: #### L 200.84137 #### Test performed at: [place] [address] Hemoglobin (Bld) [Mass/Vol] 12.5 g/dL Normal 12.0-15.0 [facility] Comment on above: Performed By: #### L 200.44427 #### Test performed at: [place] [address] Internal Med Progress Noteon 09-05-2020 Internal Med Progress Note [facility] Patient: CARROLL FUENTES [address] [place] [address] MR#: [id number] PROGRESS NOTE - Internal Medicine : 58 Service Date: 09/05/20830 Subjective Summary of Stay Ms. Fuentes is [...] input. Disc (more content not included)... Normal [facility] OT Therapy Recommendationson 09-05-2020 OT Therapy Recommendations [facility] Patient: CARROLL FUENTES [address] [place] [address] MR#: [id number] OT THERAPY RECOMMENDATIONS : 58 Service Date: 09/05/20 1511 Therapy Recommendations Therapy Recommendations Recommendations OT evaluation completed. OT recommends HOME with FAmily assist. No further acute OT needs are indicated at this time. Electronically Signed eSign Date and Time MilravenTrupti OT 09/05/20 1512 Normal [facility] Orthopedic Progress Noteon 0 09-05-2020 Orthopedic Progress Note [facility] Patient: CARROLL FUENTES [address] [place] [address] MR#: [id number] PROGRESS NOTE - Orthopedic : 58 Service [...] eSign Date and Time RUBEN KHAN 09/05/20 7604 Tera Hernandez MD Normal [facility] PT Therapy Recommendationson 09-05-2020 PT Therapy Recommendations [facility] Patient: CARROLL FUENTES [address] [place] [address] MR#: [id number] PT THERAPY RECOMMENDATIONS : 58 Service Date: 09/05/20 0914 Therapy Recommendations Therapy Recommendations Recommendations PT eval complete. No further acute PT needs. Recommend d/c home /c family assist. Electronically Signed eSign Date and Time MichaelTiffanie marin PT 09/05/20 0914 Normal [facility] z OT Inpatient Discharge Not juan 09-05-2020 z OT Inpatient Discharge Note [facility] Patient: CARROLL FUENTES [address] [place] [id number] MR#: [id number] OT INPATIENT DISCHARGE NOTE : 58 Service [...] Time Trupti Rojas OT 09/05/20 1534 Normal [facility] z OT Inpatient Evaluationon 09-05-2020 z OT Inpatient Evaluation [facility] Patient: CARROLL FUENTES [address] [address] MR#: [id number] OT INPATIENT EVALUATION : 58 Inpatient OT HPI Date of Service 09/05/20 Time In: 1401 Time Out: 1412 Total Treatment Time (Mins) 11 Visit Reason LATERAL RECESS STENOSIS W/ RADICULOPATHY Surgery Type/Date s/p L L4-5 LAmi, foraminotomy, decompression on 09.04.20/ Lumbar spine precautions Referral Date 09/04/20 Tx Diagnosis: LOW BACK PAIN Insurance Name [facility] POS O Hospital Course 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 Objective Precautions Lumbar Spine [...] Excellent Nader (more content not included)... Normal [facility] z PT Inpatient Discharge Not juan 09-05-2020 z PT Inpatient Discharge Note [facility] Patient: CARROLL FUENTES [address] [place] [address] MR#: [id number] PT INPATIENT DISCHARGE NOTE : 58 Service [...] Time Tiffanie Bashir PT 09/05/20 1139 Normal [facility] z PT Inpatient Evaluationon 09-05-2020 z PT Inpatient Evaluation [facility] Patient: CARROLL FUENTES [address] [place] [id number] MR#: [id number] PT INPATIENT EVALUATION : 58 Service Date: 09/05/20 0928 Inpatient PT [facility] Date of Service 09/05/20 Time In: 0845 Time Out: 0907 Total Treatment Time (Mins) 22 Room Number 624 Visit Reason LATERAL RECESS STENOSIS W/ RADICULOPATHY Surgery Type: L L4-5 lami, foraminotomy, decompression Surgery Date: 09/04/20 Referral Date 09/04/20 Tx Diagnosis: LOW BACK PAIN Insurance Name [facility] POS [facility] Hospital Course 60 y.o female at [facility] for above sx d/t lateral recess [...] posture. Improved stability noted /c single UE support/HADOOP ADMIN. Pt agreeable to use of her cane [...] Time Tiffanie Bashir PT 09/05/20 1502 Normal [facility] GLUCOSE METERon 09-04-2020 Glucose [Mass/Vol] 94 mg/dL Normal 70-99 [facility] Comment on above: Result Comment: Fast ing GLUCOSE reference range has been updated per (ADA) [place] Diabetes [employer]'s recommendation. 07/18/2018 Performed By: #### L 500.14068 ####Test performed at: [place] [address] [place] [address] Internal Medicine Consultati onon 09-04-2020 Internal Medicine Consultation [facility] Patient: CARROLL FUENTES [facility] [place] [id number] MR#: [id number] CONSULTATION - Internal Medicine : 58 Service Date: 09/04/20 8303 History of Present Illness Referring Physician Tera [...] Last Action: Discontinued on 09/04/20 104 by RAISA CABELLO Review of Systems (more content not included)... Normal [facility] OPERATIVE REPORTon OPERATIVE REPORT NAME: CARROLL FUENTES MR#: [id number] SURGEON: Tera Hernandez MD DATE OF SURGERY: [...] there were no complications. TERA HERNANDEZ MD [facility] PT NAME: CARROLL FUENTES MR#: [id number] [address] [place], [place] [address] ACCT: [id number] : 58 OPERATIVE REPORT JFS/[id number] E/S: Tera Hernandez MD 09/18/20 1207 Electronically Signed [facility] PT NAME: CARROLL FUENTES MR#: [id number] [address] [place], [place] [address] ACCT: [id number] : 58 OPERATIVE REPORT Normal [facility] Primary Residenton Primary Resident [facility] Pt Name: CARROLL FUENTES MR#: [id number] [address] [place] [address] ACCT: [id number] [place] [id number] : 58 Service Date: 09/04/20 1603 Primary Resident/Call Primary Resident: [id number] [place] After Hours Call: [phone] Red Team Electronically Signed eSign Date and Time Ana Flanagan RES 09/16/20 1521 Normal [facility] LUMBAR SPINE 2 OR 3 VIEWSon 09-03-2020 LUMBAR SPINE 2 OR 3 VIEWS STUDY: LUMBAR SPINE 2 OR 3 VIEWS; 09/04/2020 2:57 pm INDICATION: LEFT L4-L5 LAMINECTOMY,FORAMINOTOM Y,DECOMPRESSION. COMPARISON: None. ACCESSION NUMBER(S): [id number] ORDERING CLINICIAN: Tera Hernandez FINDINGS: Intraoperative fluoroscopy of the lumbar spine demonstrates surgical instruments posterior to L5. IMPRESSION: As above Normal [facility] CHEST PA/AP & LATERALon CHEST PA/AP & LATERAL STUDY: CHEST PA/AP LATERAL; 08/25/2020 11:00 am INDICATION: SOB/PAT. COMPARISON: None. ACCESSION NUMBER(S): [id number] ORDERING CLINICIAN: Madelyn Leone FINDINGS: The lungs are clear without pleural effusion. Normal heart size, mediastinum, elzbieta, and pulmonary vasculature. IMPRESSION: No active disease in the chest. Normal [facility] CONSULTATION REPORTon 2020 CONSULTATION REPORT NAME: CARROLL FUENTES MR#: [id number] HOOP COILER: Madelyn Leone MD DATE OF CONSULTATION: 08/25/2020 [...] pulse ox is 98% on room air. [facility] PT NAME: CARROLL FUENTES MR#: [id number] [address] [place] [address] ACCT: [id number] : 58 CONSULTATION HEENT: Atraumatic head. 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 IMPRESSION: 1. Preop clearance for L4-L5 disk [...] courtesy of this consultation. MADELYN LEONE MD MS/MODL/[id number] E/S: Madelyn Leone MD 08/26/20 7080 Electronically Signed [facility] PT NAME: CARROLL FUENTES MR#: [id number] [address] [place] [address] ACCT: [id number] : 58 CONSULTATION Normal [facility] LUMB SP COMP W FLEX/EXT 6 VW S>on 08-08-2020 LUMB SP COMP W FLEX/EXT 6 VWS> STUDY: LUMB SP COMP W FLEX/EXT 6 VWS>; 08/08/2020 9:43 am INDICATION: BACK PAIN. COMPARISON: No available comparisons. ACCESSION NUMBER(S): [id number] ORDERING CLINICIAN: Tera Hernandez TECHNIQUE: 6 views [...] L5-S1 level. No evidence of instability.. Normal [facility] XR SHLDR >/=3V AP/RUSH AP/OTH R RTon 07-03-2018 XR SHLDR >/=3V AP/RSUH AP/OTHR RT * * *Final Report* * [...] on Jul 03 2018 10:17AM EST [id number] [facility] ANES [place] 06-20-2018 ANES POST HNO ID: [id number] Author: Rohit Velarde Service: Anesthesiology Author Type: [...] 20, 2018 TIME: 2:38 PM PAGER[facility]CONTACT #: [facility] PRE[facility] HNO ID: [id number] Author: Rohit Velarde Service: Anesthesiology Author Type: [...] June 20, 2018 TIME: 9:35 AM CSN: [id number] [facility] BRIEF OP NOTon 06-20-2018 BRIEF OP NOT HNO ID: [id number] Author: Kusum Francisco Service: Orthopaedic Surgery Author Type: Resident Type: Brief Op Note Filed: 06/20/2018 5:49 PM Note Text: BRIEF OP NOTE LOG ID: [id number] Surgery/Procedure Date: 06/20/2018 Incision/Procedure Start Time: 11:18 AM Incision Close/Procedure End Time: 1:17 PM Surgeon(s)/Proceduralis t(s) and Art Installer(s): Surgeon(s) and Role: * Jenna Garsia - [...] 2018 TIME: 5:49 PM PAGER/CONTACT #: [facility] CASE MANAGEMon 06-20-2018 CASE MANAGEM HNO ID: [id number] Author: May Herrera (Sw) Service: Care Management Author Type: Nut Chopper Type: Care Mgt Progress Note Filed: 06/20/2018 [...] is pcp summary of care sent via [employer] () Nurse to provide discharge instructions. TRANSPORTATION ARRANGEMENTS: Car Spouse ADDITIONAL CONTACT RESOURCES: Needs Prior to Discharge: Ready for Discharge Appointments for Next 45 Days Date Time Provider Location Dept Phone 07/03/2018 10:00 AM CAROLA BAPTISTE AT [phone] 07/03/2018 10:30 AM GABRIEL CANTU) LATOSHA AT [phone] 07/31/2018 2:15 PM JENNA GARSIA AT [phone] Pt to be discharged home to follow up as above. 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 Stated Goals: To improve my functional status Health Insurance: MMO [email or web address] None Health Issues Impacting Discharge Plan: Pt [...] With: Spouse Financial Resources: 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 O.Therapy recommend home. Spouse visiting at bedside and will transport pt home later today.Further discharge needs not anticipated.SW/TCC to follow to assist with plans for discharge. SIGNATURE: DARIO Saini PATIENT NAME: Carroll Fuentes DATE: June 20, 2018 TIME: 5:27 PM PAGER/CONTACT #: [phone] [facility] CONSULTon 06-20-2018 CONSULT HNO ID: [id number] Author: Dulce Green Service: General Internal Medicine [...] Laterality Date - ANTERIOR INTERBODY FUSION, CERVICAL 1993 C5-6 - APPENDECTOMY - ARTHROSCOPIC RELEASE SHOULDER [...] Disp: Rfl: 06/19/2018 at 0630 rizatriptan (MAXALT MEAL COOKER) 10 mg disintegrating tablet DISSOLVE 1 TABLET [...] the care of your patient. Dulce Green APRN.PANTRY CHEF June 20, 2018 4:34 PM Normal [facility] NURSING PROGon 06-20-2018 Protein mass conc HNO ID: [id number] Author: Fela (Rn) FLETCHER Phillips Service: (none) Author Type: Registered Nurse Type: Nursing Progress Note Filed: 06/20/2018 7:39 PM Note Text: Nursing Progress Note Patient Name: Carroll Fuentes Patient Location: [facility]/ CO-* Daily Note: 1545. Care assumed. Pt [...] at bedside. 1720. Dr. Meeks and Dulce INSOLE BUFFER at bedside, plan is to stay for [...] was completed by: Fela Phillips RN [facility] Protein mass conc HNO ID: [id number] Author: Wendy (Rn) FLETCHER Underwood Service: Nursing Author Type: Registered Nurse Type: Nursing Progress Note Filed: 06/20/2018 10:20 AM Note Text: Nursing Progress Note Patient Name: Carroll Fuentes Patient Location: SURGERY [facility] S* Daily Note:Right interscalene nerve block with ultrasound guidance with Dr. Velarde and Dr. Marlow at bedside. Patient tolerated procedure well, VSS, will continue to monitor as we wait for OR team. Resting comfortably with no complaints of pain at this time. This note was completed by: Wendy Underwood RN [facility] OPERATIVE NOon 06-20-2018 OPERATIVE NO HNO ID: [id number] Author: Jenna Garsia Service: Orthopaedic Surgery Author Type: Physician Type: Operative Report Filed: 06/20/2018 1:25 PM Note Text: [place] [address] [place] OPERATIVE REPORT NAME: Carroll Fuentes [facility] #: [id number] DATE: 06/20/2018 (11:18am-1:17pm) AGE: 58 SURGEON 1: Jenna Garsia M.D. PATIENT RELATIONS SPECIALIST: 1. Augie Coates M.D. 2. Kusum Prasad M.D. 3. Mundo Pablo OPERATION: Right total shoulder arthroplasty, biceps tenodesis. ANESTHESIA: General anesthesia with regional interscalene nerve block for postoperative pain control. PREOPERATIVE DIAGNOSIS: Right shoulder primary glenohumeral osteoarthritis. POSTOPERATIVE DIAGNOSIS: Right shoulder primary glenohumeral osteoarthritis, biceps tendinopathy. OPERATIVE INDICATIONS: The patient is a 58 year olddst-ewbl-izg right-hand dominant white female who has a [...] rotator interval stitch was then passed in lxmrid-ww-olcet fashion with a #2 Ticron suture and tied down to close the lateral rotator interval and set the osteotomy superiorly. The two #2 Fiberwire sutures coming out of the bicipital groove were then sequentially passed in a wthczo-io-pxsml fashion medial to the horizontal mattress and [...] COMPLICATIONS: none apparent Jenna Garsia M.D. [facility] PT EDon 06-20-2018 PT ED HNO ID: [id number] Author: Cindy (Rn) FLETCHER Griffin Service: (none) [...] Signed By: Cindy Griffin RN In Department: [facility] SURGICAL SERVICES [facility] THERAPY NTon 06-20-2018 THERAPY NT HNO ID: [id number] Author: Abi ValenciaOtTyesha Phillips Service: Occupational Therapy Author Type: Occupational Therapist Type: Therapy (PT/OT/Speech/Resp) Filed: 06/20/2018 4:59 PM Note Text: Occupational Therapy Evaluation SERVICE DATE: 06/20/2018 SERVICE TIME: 1550 to 1640 ROOM: [address] Recommended Discharge Disposition: Home Anticipated Discharge [...] daily living (ADL) Interventions Provided: Evaluation;Therapeutic Exercise (96550);Self Penitentiary Management (53596) $ Evaluation-Low (69798) Billed Units: 1 unit Therapeutic Exercise (33185) Treatment Minutes: 10 1 unit Skilled Intervention(s): Education in Self Penitentiary Management (53081) Treatment Minutes: 28 2 units Skilled Intervention(s): [...] on 06/20/18 for R TSA by Dr Garsia. Reason for Occupational Therapy Consult: safety assessment Relevant Past Medical History: DM, L TSA, depression, Patient Report: I want to go home today. Home Environment Patient Lives With: Spouse Assistance Available: time study observer Number Of Stairs To Bed/Bath: 0 Equipment [...] June 20, 2018 TIME: 4:54 PM [facility] XR SHOULDER 2V AP/TRUE AP [...] Jun 20 2018 2:04PM EST [id number] [facility] NURSING PROGon 06-09-2018 Protein mass conc HNO ID: [id number] Author: Ivana ValenciaRn) FLETCHER Heller Service: Nursing [...] 2018 11:10 AM Addendum 06/15/18 EKG IN [facility] FINAL Ivana Heller RN June 15, 2018 4:39 PM Normal [facility] Type and SCR (30D)on 019 ABO/RH(D) Positive [facility] HOSPon 04-28-2018 HOSP Patient:Adalberto Fuentes MRN: Height:5' 2 (1.575 m) Weight:186 lb (84.369 kg) Outpatient Medications as of 06/20/18: calcium phosphate dibas/vit D3 (VITAMIN D, WITH CALCIUM, ORAL) docusate sodium (COLACE) 100 mg capsule aspirin, enteric coated (ECOTRIN LOW STRENGTH) 81 mg EC tablet oxyCODONE-acetaminophen (PERCOCET) 5-325 mg tablet rizatriptan (MAXALT MEAL COOKER) 10 mg disintegrating tablet mupirocin (BACTROBAN) 2 [...] 46.0 36.0 Progress Notes (RADIO [facility]): RT Lillian, Tech 06/07/2018 [...] RT Lillian June 07, 2018 9:54 AM [facility] Vital Signs Date Time Vital Sign Value Performing Clinician Facility 07-13-2024 10:11-0400 Body height 154.94 cm [facility] 07-13-2024 10:11-0400 Body mass index (BMI) [Ratio] 32.9 kg/m2 [facility] 07-13-2024 10:11-0400 Body weight 79.01 kg [facility] 07-13-2024 10:11-0400 Diastolic blood pressure 77 mm[Hg] [facility] 07-13-2024 10:11-0400 Heart rate 65 /min [facility] 07-13-2024 10:11-0400 Respiratory rate 12 /min [facility] 07-13-2024 10:11-0400 Systolic blood pressure 117 mm[Hg] [facility] 07-11-2024 08:30-0400 Body temperature 98.6 [degF] Jose Sharif MD Work Phone: [facility] 07-11-2024 08:30-0400 Diastolic blood pressure 62 mm[Hg] Jose Sharif MD Work Phone: [facility] 07-11-2024 08:30-0400 Heart rate 88 /min Jose Sharif MD Work Phone: [employer] 07-11-2024 08:30-0400 Respiratory rate 16 /min Jose Sharif MD Work Phone: [facility] 07-11-2024 08:30-0400 SaO2% (BldA) [Mass fraction] 98 % Jose Sharif MD Work Phone: [facility] 07-11-2024 08:30-0400 Systolic blood pressure 117 mm[Hg] Jose Sharif MD Work Phone: [facility] 07-06-2024 20:16-0400 Body height 154.9 cm Jose Sharif MD Work Phone: [facility] 07-06-2024 20:16-0400 Body mass index (BMI) [Ratio] 33.07 kg/m2 Jose Sharif MD Work Phone: [facility] 07-06-2024 20:16-0400 Body weight 79.38 kg Jose Sharif MD [facility] 07-04-2024 15:04-0400 Body height 154.94 cm [facility] 07-04-2024 15:04-0400 Body mass index (BMI) [Ratio] 32.9 kg/m2 [facility] 07-04-2024 15:04-0400 Body weight 79.06 kg [facility] 07-04-2024 15:04-0400 Diastolic blood pressure 79 mm[Hg] [facility] 07-04-2024 15:04-0400 Heart rate 69 /min [facility] 07-04-2024 15:04-0400 Respiratory rate 12 /min [facility] 07-04-2024 15:04-0400 Systolic blood pressure 177 mm[Hg] [facility] 06-25-2024 10:11-0500 Body temperature 97.3 [degF] [facility] 06-25-2024 10:11-0500 Diastolic blood pressure 76 mm[Hg] [facility] 06-25-2024 10:11-0500 Heart rate 54 /min [facility] 06-25-2024 10:11-0500 Respiratory rate 16 /min [facility] 06-25-2024 10:11-0500 SaO2% (BldA) [Mass fraction] 98 % [facility] 06-25-2024 10:11-0500 Systolic blood pressure 119 mm[Hg] [facility] 06-25-2024 10:07-0500 Body height 154.94 cm [facility] 06-25-2024 10:07-0500 Body mass index (BMI) [Ratio] 32.9 kg/m2 [facility] 06-25-2024 10:07-0500 Body weight 79.15 kg [facility] 02-24-2024 14:13-0400 Body height 154.94 cm [facility] 02-24-2024 14:13-0400 Body mass index (BMI) [Ratio] 33.1 kg/m2 [facility] 02-24-2024 14:13-0400 Body temperature 96 [degF] [facility] 02-24-2024 14:13-0400 Body weight 79.6 kg [facility] 02-24-2024 14:13-0400 Diastolic blood pressure 84 mm[Hg] [facility] 02-24-2024 14:13-0400 Heart rate 66 /min [facility] 02-24-2024 14:13-0400 Systolic blood pressure 159 mm[Hg] [facility] 12-20-2023 15:35-0400 Body height 154.94 cm [facility] 12-20-2023 15:35-0400 Body mass index (BMI) [Ratio] 33.8 kg/m2 [facility] 12-20-2023 15:35-0400 Body weight 81.19 kg [facility] 12-20-2023 15:35-0400 Diastolic blood pressure 80 mm[Hg] [facility] 12-20-2023 15:35-0400 Heart rate 78 /min [facility] 12-20-2023 15:35-0400 Respiratory rate 12 /min [facility] 12-20-2023 15:35-0400 Systolic blood pressure 134 mm[Hg] [facility] 04-29-2023 09:00-0500 Body height 154.94 cm Robert Ball Other [facility] [employer] Other 04-29-2023 09:00-0500 Body mass index (BMI) [Ratio] 33.14 kg/m2 Robert Ball Other [place] [employer] Other 04-29-2023 09:00-0500 Body weight 79.56 kg Robert Ball Other [employer] Other 04-29-2023 09:00-0500 Diastolic blood pressure 89 mm[Hg] Robert Ball Other [employer] Other 04-29-2023 09:00-0500 Respiratory rate 12 /min Robert Ball Other [employer] Other 04-29-2023 09:00-0500 Systolic blood pressure 155 mm[Hg] Robert Ball Other [employer] Other 12-20-2022 13:45-0400 Body height 154.94 cm Robert Ball Other [employer] Other 12-20-2022 13:45-0400 Body mass index (BMI) [Ratio] 34.12 kg/m2 Robert Ball Other [employer] Other 12-20-2022 13:45-0400 Body weight 81.92 kg Robert Ball Other [employer] Other 12-20-2022 13:45-0400 Diastolic blood pressure 96 mm[Hg] Robert Ball Other [employer] Other 12-20-2022 13:45-0400 Respiratory rate 12 /min Robert Ball Other [employer] Other 12-20-2022 13:45-0400 Systolic blood pressure 179 mm[Hg] Robert Ball Other [employer] Other 08-04-2022 09:45-0400 Body height 154.94 cm Robert Ball Other [employer] Other 08-04-2022 09:45-0400 Body mass index (BMI) [Ratio] 33.33 kg/m2 Robert Ball Other [employer] Other 08-04-2022 09:45-0400 Body weight 80.02 kg Robert Ball Other [employer] Other 08-04-2022 09:45-0400 Diastolic blood pressure 77 mm[Hg] Robert Ball Other [employer] Other 08-04-2022 09:45-0400 Respiratory rate 12 /min Robert Ball Other [employer] Other 08-04-2022 09:45-0400 Systolic blood pressure 128 mm[Hg] Robert Ball Other [employer] Other Encounters Encounter Date Encounter Type Care Provider Facility Start: 07-13-2024 End: 07-13-2024 ambulatory [facility] Work Phone: Start: 07-13-2024 End: 07-13-2024 Patient encounter procedure [facility] Work Phone: Start: 07-12-2024 Non-patient / Non-visit [facility] Work Phone: Start: 07-11-2024 Non-patient / Non-visit [facility] Work Phone: Start: 07-06-2024 End: 07-11-2024 Evaluation and management of inpatient Jose Sharif MD Work Phone: [facility] 7K Start: 07-04-2024 End: 07-04-2024 ambulatory [facility] Work Phone: Start: 07-04-2024 End: 07-04-2024 Encounter for other preprocedural examination [facility] Start: 07-04-2024 End: 07-04-2024 Patient encounter procedure [facility] Work Phone: Start: 06-27-2024 Non-patient / Non-visit [facility] Physician [facility] Work Phone: Start: 06-25-2024 End: 06-25-2024 ambulatory [facility] Work Phone: Start: 06-25-2024 End: 06-25-2024 Patient encounter procedure [facility] Work Phone: Start: 06-21-2024 ambulatory Raisa PRICE Facility:[facility] Start: 06-01-2024 Non-patient / Non-visit [facility] Physician [facility] Work Phone: Start: 05-31-2024 Non-patient / Non-visit [facility] Physician [facility] Work Phone: Start: 04-09-2024 End: 04-09-2024 ambulatory Miriam Barron MD Facility: [facility] Start: 02-24-2024 End: 02-24-2024 ambulatory [facility] Work Phone: Start: 02-24-2024 End: 02-24-2024 Patient encounter procedure [facility] Work Phone: Start: 02-22-2024 Non-patient / Non-visit [facility] Physician [facility] Work Phone: Start: 12-27-2023 Non-patient / Non-visit [facility] [employer] [facility] Work Phone: Start: 12-20-2023 Patient encounter status [facility] Start: 12-20-2023 End: 12-20-2023 ambulatory [facility] Work Phone: Start: 12-20-2023 End: 12-20-2023 Patient encounter procedure [facility] Work Phone: Start: 09-26-2023 End: 09-26-2023 ambulatory Miriam Barron MD Facility: [facility] Start: 08-15-2023 End: 08-15-2023 ambulatory Miriam Barron MD Facility: [facility] Start: 08-08-2023 End: 08-08-2023 ambulatory Miriam Barron MD Facility: [facility] Start: 06-27-2023 End: 06-27-2023 ambulatory Miriam Barron MD Facility: [facility] Start: 06-06-2023 End: 06-06-2023 ambulatory Miriam Barron MD Facility: [facility] Start: 06-01-2023 End: 06-01-2023 ambulatory Robert Villasenor Other [employer] Other Start: 06-01-2023 Telephone encounter Robert Villasenor [facility] Start: 05-23-2023 End: 05-23-2023 ambulatory Miriam Barron MD Facility: [facility] Start: 05-13-2023 End: 05-13-2023 ambulatory Robert Villasenor Other [employer] Other Start: 05-13-2023 Telephone encounter Robert Ball [facility] Start: 05-09-2023 End: 05-09-2023 ambulatory Robert Ball Other [employer] Other Start: 05-09-2023 Telephone encounter Robert Ball [facility] Start: 05-04-2023 End: 05-04-2023 ambulatory Robert Ball Other [employer] Other Start: 05-04-2023 Telephone encounter Robert Ball [facility] Start: 05-02-2023 End: 05-02-2023 ambulatory Robert Ball Other [employer] Other Start: 05-02-2023 Telephone encounter Robert Ball [facility] Start: 04-29-2023 End: 04-29-2023 ambulatory Robert Ball Other [employer] Other Start: 04-29-2023 Office outpatient vi sit 15 minutes Robert Ball [facility] Start: 04-04-2023 End: 04-04-2023 ambulatory Robert Ball Other [employer] Other Start: 04-04-2023 Telephone encounter Robert Ball [facility] Start: 01-24-2023 End: 01-24-2023 ambulatory Robert Ball Other [employer] Other Start: 01-24-2023 Telephone encounter Robert Ball [facility] Start: 12-23-2022 End: 12-23-2022 ambulatory Robert Ball Other [employer] Other Start: 12-23-2022 Telephone encounter Robert Ball [facility] Start: 12-20-2022 End: 12-20-2022 ambulatory Robert Ball Other [employer] Other Start: 12-20-2022 Office outpatient vi sit 15 minutes Robert Ball [facility] Start: 12-17-2022 End: 12-17-2022 ambulatory Robert Ball Other [employer] Other Start: 12-17-2022 Telephone encounter Robert Villasenor [facility] Start: 11-08-2022 End: 11-08-2022 ambulatory Robert Villasenor Other [employer] Other Start: 11-08-2022 Telephone encounter Robert Villasenor [facility] Start: 10-22-2022 End: 10-22-2022 ambulatory Robert Hamilton Other [employer] Other Start: 10-22-2022 Telephone encounter Robert Hamilton [facility] Start: 10-13-2022 End: 10-13-2022 ambulatory Robert Villasenor Other [employer] Other Start: 10-13-2022 Telephone encounter Robert Villasenor [facility] Start: 09-27-2022 End: 09-27-2022 ambulatory Robert Hamilton Other [employer] Other Start: 09-27-2022 Telephone encounter Robert Villasenor [facility] Start: 08-23-2022 End: 08-24-[address] RISHI PARKER Facility:[facility] Start: 08-04-2022 End: 08-04-2022 ambulatory Robert Villasenor Other [employer] Other Start: 08-04-2022 Office outpatient vi sit 25 minutes Robert Villasenor [facility] Start: 04-03-2022 Encounter for genera l adult medical examination without abnormal findings DR ROBERT VILLASENOR [facility] Start: 03-30-2022 End: 03-31-[address] [...] End: 07-03-2018 Patient encounter procedure [facility] Start: 06-20-2018 End: 06-20-2018 Evaluation and management of inpatient [facility] Procedures Date Procedure Procedure Detail Performing Clinician [...] ev cleared fda spec home use Dank Digrobbieo PA Work Phone: Start: 07-07-2024 Anion gap [Moles/Vol] O chelsea Sharif MD Work Phone: Start: 07-07-2024 End: 07-07-2024 Basic metabolic panel calcium total Jose Sharif MD Work Phone: Start: 07-07-2024 GLOMERULAR FILTRATIO N RATE, ESTIMATED Jose Sharif MD Work Phone: Start: 07-07-2024 Gluc bld gluc mntr d ev cleared fda spec home use Dank Digpatricio PA Work Phone: Start: 07-07-2024 Radiologic exam ches [...] 60 yrs+ (1 - 1-dose 75+ series) [facility] Start: 07-11-2025 GFR test (Diabetes, CKD 3-4, OR last GFR 15-59) GFR test (Diabetes, CKD 3-4, OR last GFR 15-59) [employer] Start: 04-25-2024 Annual Wellness Visi t (Medicare Advantage) Annual Wellness Visit (Medicare Advantage) [employer] Start: 12-25-2023 COVID-19 Vaccine ( season) COVID-19 Vaccine ( season) [employer] Start: 2014 Screening for osteoporosis DEXA (modify frequency per FRAX score) [employer] Start: 2009 Pneumococcal 50+ yea rs Vaccine (1 of 1 - PCV) Pneumococcal 50+ years Vaccine (1 of 1 - PCV) [employer] Start: 2009 Shingles vaccine (1 of 2) Shingles vaccine (1 of 2) [employer] Start: 2004 Screening for malign ant neoplasm of colon [employer] Start: 1999 Screening for malign ant neoplasm of breast Breast cancer screen [employer] Start: 1994 Diabetes screen Diabetes screen [employer] Start: 1989 Screening for malign ant neoplasm of cervix [employer] Start: 1980 Screening for malign ant neoplasm of cervix Pap smear [employer] Start: 1978 DTaP/Tdap/Td vaccine (1 - Tdap) DTaP/Tdap/Td vaccine (1 - Tdap) [employer] Start: 1977 Hepatitis C screening Hepatitis C sc reen [employer] Start: 1974 HIV screening HIV screen [facility] Start: 1971 Depression Screen Depression Screen [employer] Start: 1969 Lipid panel Lipids [employer] End: 07-15-2024 Basic metabolic 2000 panel - Serum or Plasma Basic Metabolic Panel Lab Routine Daily for 1 Weeks starting 07/09/2024 until 07/15/2024, 3 completed [employer] Comment on above: Daily for [address] arting 07/09/2024 until 07/15/2024, 3 completed Comprehensive metabo lic 2000 panel - Serum or Plasma [facility] Glucose [Mass/volume ] in Serum or Plasma POCT Glucose Point of Care Testing STAT As Needed until discontinued starting 07/06/2024 [employer] Comment on above: As Needed until disc ontinued starting 07/06/2024 Glucose [Mass/volume ] in Serum or Plasma POCT glucose Point of Care Testing Routine 4X Daily (AC & HS) until discontinued starting 07/07/2024, 18 completed [employer] Comment on above: 4X Daily (AC & HS) u ntil discontinued starting 07/07/2024, 18 completed Glucose [Mass/volume ] in Serum or Plasma POCT Glucose Point of Care Testing STAT As Needed until discontinued starting 07/10/2024 [employer] Comment on above: As Needed until disc ontinued starting 07/10/2024 End: 07-15-2024 Hemoglobin and Hematocrit Hemoglobin and Hematocrit Lab Routine Daily for 1 Weeks starting 07/09/2024 until 07/15/2024, 3 completed [employer] Comment on above: Daily for [address] arting 07/09/2024 until 07/15/2024, 3 completed MG Breast - bilatera l Diagnostic [facility] Oxygen therapy [[facility] Data Set] Initiate Oxygen Therapy Protocol Respiratory Care Routine As Needed until discontinued starting 07/08/2024 [employer] Comment on above: As Needed until disc ontinued starting 07/08/2024 Spirometry panel Incentive jesse metry Respiratory Care Routine Every 2hr while awake until discontinued starting 07/06/2024 [employer] Work Phone: Comment on above: Every 2hr while awak e until discontinued starting 07/06/2024 Spirometry panel Incentive jesse metry Respiratory Care Routine Every 2hr while awake until discontinued starting 07/08/2024 [employer] Comment on above: Every 2hr while awak e until discontinued starting 07/08/2024 [facility] Payers Date Payer Category Payer Unknown [id number] 2023 [id number] 2019 Unknown [id number] 2015 Unknown [id number] 1959 Self-pay [id number] 1959 Unknown [id number] [id number] 93 1959 Unknown [id number] 2.16.840.1.514461.3.579.2.5 93 1959 Unknown [id number] 2.16.840.1.686417.3.579.2.5 93 1959 Unknown [id number] 2.16.840.1.042935.3.579.2.5 93 1959 Unknown [id number] 2.16.840.1.288379.3.579.2.5 93 1959 Unknown [id number] 2.16.840.1.353282.3.579.2.5 93 1959 Unknown [id number] 2.16.840.1.593464.3.579.2.1 96 1959 Unknown [id number] 2.16.840.1.568714.3.579.2.1 96 1959 Unknown [id number] 2.16.840.1.443410.3.579.2.1 96 1959 Unknown [id number] 2.16.840.1.655142.3.579.2.1 96 1959 Unknown [id number] 2.16.840.1.484098.3.579.2.1 96 1959 Unknown [id number] 2.16.840.1.783339.3.579.2.1 96 1959 Unknown [id number] 2.16.840.1.335646.3.579.2.1 96 1959 Unknown [id number] 2.16.840.1.091901.3.579.2.7 27 1959 Unknown [id number] 2.16.840.1.933986.3.579.2.9 3 Medicare Medicare [id number] Unknown [id number] 2.16.840.1.962980.3.579.2.5 93 Unknown MMO [id number] Unknown [facility] [facility] PFFS [id number] Social History Date Type Detail Facility Start: 07-06-2024 Sex Assigned At [employer] Other Start: 1960 Sex Assigned At Female [facility] Tobacco smoking stat us VTIS Unknown if ever smoked [facility] Work Phone: Start: 06-25-2024 End: 07-13-2024 Sex Female (finding) [facility] Start: 07-06-2024 Tobacco smoking status NHIS Never smoked tobacco [employer] Start: 07-06-2024 Tobacco use and exposure Smokeless tobacco non-user [employer] Start: 07-09-2024 Alcoholic beverage intake Lifetime non-drinker (finding) [employer] Start: 07-06-2024 History of Social function Duda Has the [employer], or [employer] threatened to shut off services in your home in past 12Mo No [employer] (I/We) worried eladio er (my/our) food would run out before (I/we) got money to buy more. Never true [employer] In the past 12 month s, has lack of transportation kept you from medical appointments or from getting medications? No [employer] [facility] Start: 1960 Sex assigned at Not on file [email or web address] [facility] Medical Equipment Procedure Code Equipment Code Equipment Original Text Equipment Identifier Dates Screw Spnl L45mm Dia6.5mm Post Thoracolumbosacral Co Chrom - [id number] Start: 07-08-2024 Screw Spnl L40mm Dia6.5mm Post Thoracolumbosacral Co Chrom - [id number] Start: 07-08-2024 Set Scr Spnl L6m m Dia5.5mm Ti Brk Off Svetlana W/ Detach Cdh - [id number] Start: 07-08-2024 Evan Spnl L35mm D ia5.5mm Ant Post Thoracolumbosacral Ti - [id number] Start: 07-08-2024 Clinical Notes 08-04-2022 to [...] Stable for dc. F/up orthop as OP. Jose Sharif MD, MD Department of Orthopedic Surgery Spine Service Attending [...] /SSI PT/OT SCD amlabs Jose Sharif MD, MD [facility] INPATIENT PHYSICAL THERAPY EVALUATION [facility] 7K - 7K-21/021-A Discharge Recommendations: Continue [...] or urinary incontinence. 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 Donned robe in standing Bed Mobility: Rolling to Right: [...] Not Tested Exercise: None Functional Outcome Measures: [facility] (6 CLICK) BASIC MOBILITY AM-[facility] Inpatient Mobility Raw Score : 17 AM-[facility] Inpatient T-Scale Score : 42.13 Modified Hardeman: Premorbid Functional Status: Not Applicable Current Functional [...] with good technique/recall to progress with mobility. Associate Professor Of Criminal Justice Goals Time Frame for Shelter Goals : NA due to short ELOS Following session, patient left in safe position with all fall risk precautions in place. Pt in bed following session, all needs and call light in reach, alarm on. [facility] ORTHOPEDICS 7 Occupational Therapy Daily Note Discharge Recommendations: Home with Home Health OT Equipment Recommendations: No Monitor need for LHAE. Time In: 0800 Time Out: 827 Timed Code Treatment Minutes: 28 Minutes Minutes: 28 Date: 07/10/2024 Patient Name: Carroll Fuentes, Gender: female Room: [address] [place] [address] : 1960 (64 y.o.) Referring Practitioner: Dank [...] or urinary incontinence. She was evaluated at [facility], she had an MRI of the lumbar [...] injury in the past year?: Yes Active Form Tamper: Yes Occupation: Retired SUBJECTIVE: Patient seated in bedside chair upon arrival; agreeable to therapy this date. Patient pleasant and cooperative throughout session. PAIN: 10/02: Vitals: Vitals not assessed per clinical judgement, see nursing flowsheet COGNITION: WFL ADL: Grooming: Modified Independent. Hair care seated in bedside chair Upper Extremity Dressing: Minimal Assistance. Carroll/doff house robe Lower Extremity Dressing: Minimal Assistance. With store group manager in order to carroll/doff [facility] shorts with verbal/visual cues to complete, demonstrating good understanding. Footwear Management: Supervision, X 1, with verbal cues , and with increased time for completion. Utilized store group manager/sock aid in order to doff/carroll B socks [...] demonstrate appropriately throughout session. Functional Outcome Measures: AM-[facility] Inpatient Daily Activity Raw Score: 19 ASSESSMENT: [...] indep within home environment. Additional Goals?: No Associate Professor Of Criminal Justice Goals Time Frame for Shelter Goals : No LTGs d/t short estimated [...] Intake/Output Summary (Last 24 hours) at 07/10/2024 0772 Last data filed at 07/10/2024 0654 Gross [...] 07/06/2024 PCP: Robert Villasenor DO Interval History: D1 post L3-5 bilateral laminectomy, [...] in am PT/OT Jose Sharif MD, MD [facility] PHYSICAL THERAPY MISSED TREATMENT NOTE [facility] 7K Date: 07/09/2024 Patient Name: Carroll Fuentes : 1960 (64 y.o.) Gender: female REASON FOR MISSED TREATMENT: Missed Treat. Attempted x3 today. 1st attempt, pt with tech on BSC and then requesting to eat breakfast. 2nd attempt, OT with pt. 3rd attempt, rn field case manager in room to complete assessment. [facility] INPATIENT OCCUPATIONAL THERAPY [facility]OP[facility] 7K EVALUATION Discharge Recommendations: Continue to [...] or urinary incontinence. She was evaluated at [facility], she had an MRI of the lumbar [...] injury in the past year?: Yes Active Form Tamper: Yes Occupation: Retired VISION:Corrected HEARING: WFL COGNITION: [...] treatment: Good treatment tolerance Functional Outcome Measures: AM-[facility] Inpatient Daily Activity Raw Score: 17 Modified Hardeman: Premorbid Functional Status: Not Applicable Current Functional Status: Not Applicable Assessment: This 64 year old female presents with intractable back pain. Pt demonstrates weakness, decreased balance, decrease safety awareness, decreased endurance. Pt requires skilled OT intervention to increase indep and safety with all self cares, transfers, mobility, and IADLs to return to OF. Without skilled OT intervention patient is at [...] indep within home environment. Additional Goals?: No Associate Professor Of Criminal Justice Goals Time Frame for Shelter Goals : No LTGs d/t short estimated [...] pain 6/10 at this time, medicated by UNBUNDLER 1840 pt resting, resp easy. VSS 1850 pt awakens to voice, states pain 5/10 and tolerable. VSS 1900 c/o pain 7/10, medicated with 50 mcg fentanyl 1904 no change in pain status, medicated with 50 mcg fentanyl 1910 pt resting, resp easy. VSS 1914 pt resting, resp easy. VSS 1924 pt meets criteria for discharge from pacu at this time. Pt transported to [facility] in stable condition Patient to OR at [...] 1.0* GLUCOSE 259* 172* Hepatic: Recent Labs 07/06/242045 AST 23 ALT 24 BILITOT 0.4 ALKPHOS 65 INR: Recent Labs 07/06/242045 INR 1.02 Assessment and Plan: L3-L5 spinal stenosis with neurogenic claudication/radiculopathy L3-L4 herniated nucleus polyposis. L4-L5 spondylolisthesis grade 1. Hypertension Diabetes mellitus type 2. Hypothyroidism Cont Analgesics. cont blood pressure meds SSI Am labs Awaiting OR. Jose Sharif MD, Spiritual Health History and Assessment/Progress Note [facility] (P) Initial Encounter, , , Name: Carroll Fuentes Age: 64 y.o. Sex: female Language: Guatemalan Voodoo: Orthodox Intractable back pain Date: 07/07/2024 Total Time Calculated: (P) 14 min Spiritual Assessment began in [facility] 7K Referral/Consult From: (P) Nurse Encounter [...] and how she loves everything about the buddhist. Patient finds peace and hope in her liliane as a christianity and desires to have sacrament of the sick by a family day care worker, before her surgery tomorrow afternoon. I told the patient that I will let the spiritual care team know. Offered patient words of encouragement, quoted Scripture, and prayed with the patient, at her request. Patient expressed gratitude. Made patient aware of licensed acupuncturist availability and support. Patient Interventions include: Facilitated expression of thoughts and feelings, Explored spiritual coping/struggle/distress, Affirmed coping skills/support systems, and Provided sacramental/sabianist ritual Family/Friends Interventions include: No family/friends present Patient Plan of Care: Contact Liliane community affairs manager for support or sacramental needs Family/Friends Plan of Care: No family/friends present documented in this encounter [facility] 07-11-2024 Hospital Discharge instructions Bhavani Anderson RN - 07/11/2024 9:47 AM EDT Follow up with office for drain removal on Thursday 07/13 at 11:40 am\ Back Surgery Activity No lifting, pushing, or pulling Up as tolerated at least 3-4 times per day. Up walking-helps to decrease the risk of blood clots Wear chip hose as directed per your physician No [...] All vegetables, especially asparagus, [place] sprouts, broccoli, [place] sprouts, cabbage, carrots, cauliflower, celery, corn, greens, [...] taking more than one drug. This includes trid-ywt-royrske medication and herb or dietary supplements. Plan [...] possible side effects documented in this encounter [facility] 07-08-2024 Note PROCEDURE: XR LUMBAR SPINE 1 [...] loss of vertebral body height is seen. [facility] 07-08-2024 Note PROCEDURE: XR LUMBAR SPINE 1 [...] by: Sivakumar Betts MD 07/08/24 Final result [facility] 06-25-2024 Evaluation note Diagnosis Onset Date Resolution Cervical spondylosis acute Gerald h 2024 10:04am Hypertension acute June 25, 2 025 10:04am Hx of fusion of cervical spine resolved June 25, 2024 10:04am Cervical pain deleted June 25, 2024 10:04am Hypercholesterolemia acute Gerald 2024 2:57pm Hypertension acute July 04, 2024 2:57pm Hypothyroid acute July 04, 025 2:57pm STEPHANIE (obstructive sleep apnea) acute July 04, 2024 2:57pm Type 2 diabetes mellitus with hyperglycemia acute July 04 025 2:57pm Preop exam for internal medicine noneactive July 04, 2024 2:57pm [facility] Work Phone: 1(282) 948-327003-03-2025 Evaluation note* Diagnosis Onset Date Resolution Status Admit Date Cervical spondylosis acute Gerald h 2024 10:04am Hypertension acute June 25, 025 10:04am Hx of fusion of cervical spine resol jameel June 25, 2024 10:04am Cervical pain deleted June 25, 2024 10:04am Central stenosis of spinal canal acu te July 04, 2024 2:57pm Herniated intervertebral dis c of lumbar spine acute July 04, 2024 2:57pm Hypertension acute July 04, 2024 2:57pm Primary osteoarthritis, righ t shoulder acute July 04, 2024 2:57pm Type 2 diabetes mellitus wit h hyperglycemia acute July 04, 2024 2:57pm [facility] Work Phone: 1(718) 763-617302-07-2024 Evaluation note* Encounter Date Diagnosis Assessment Notes Treatment Notes Treatment Clinical Notes May, Autoimmune thyroiditis (ICD-10 - E06.3) May, Elevated cholesterol (ICD-10 - E78.00) May, Type 2 diabetes mellitus with hyperglycemia, without long-term current use of insulin (ICD-10 - E11.65) May, Primary hypertension (ICD-10 - I10) May, Intractable chronic migraine without aura and without status migrainosus (ICD-10 - G43.719) [place] [employer] Other 01-15-2024 Evaluation note* Encounter Date Diagnosis Assessment Notes Treatment Notes Treatment Clinical Notes Apr, Intractable chronic migraine without aura and without status migrainosus (ICD-10 - G43.719) [employer] Other 01-08-2024 Evaluation note* Encounter Date Diagnosis Assessment Notes Treatment Notes Treatment Clinical Notes Apr, Intractable chronic migraine without aura and without status migrainosus (ICD-10 - G43.719) [employer] Other 01-05-2024 Evaluation note* Encounter Date Diagnosis [...] Begin Amitriptyline Stop Tizanidine. 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 May want to cut back on Zanaflex. [...] Pain in left shoulder (ICD-10 - M25.512) [employer] Other 06-30-2023 Evaluation note* Encounter Date Diagnosis Assessment Notes Treatment Notes Treatment Clinical Notes Sep, Type 2 diabetes mellitus with hyperglycemia, without long-term current use of insulin (ICD-10 - E11.65) [employer] Other 06-05-2023 Evaluation note* Encounter Date Diagnosis Assessment Notes Treatment Notes Treatment Clinical Notes Sep, Candidiasis, intertriginous (ICD-10 - B37.2) [employer] Other 04-12-2023 Evaluation note* Encounter Date Diagnosis [...] use, the patient reduces the risk for VT, CVA, HTN, cardiac dysrhythmias and sudden cardiac [...] Jul, Other specified hypothyroidism (ICD-10 - E03.8) [facility] [employer] Other [facility] Other Evaluation noteNo assessment information available [facility] Work Phone: Evaluation note* Diagnosis Onset Date Resolution Status Cervical pain acute Cervical spondylosis acute Cervical pain acute Cervical spondylosis acute Painful lumpy right breast a cute [facility] Work Phone: Evaluation note* Diagnosis Intractable back pain- Primary Backache, unspecified Spinal stenosis of lumbar region with neurogenic claudication Spinal stenosis, lumbar region, with neurogenic claudication Primary hypertension Unspecified essential hypertension Type 2 diabetes mellitus, without long-term current use of insulin (HCC) documented in this encounter [facility] general Narrative - Reported* Type Description [...] LEFT HEART CATHETERIZATION 2016 Hospitalization History SEE [facility] Other History general Narrative - Reported* Type [...] Right knee arthroscopy 10/2022 Hospitalization History SEE [facility] Other Reason for referral (narrative)* Reason Evaluation of right knee pain Diagnosis 1 Strain of right knee , subsequent encounter (U21.389X) Referral Organization [facility] [place] roe Referring Provider First Name Robert Referring Provider Last Name Hamilton Referring Provider Specialty Internal Ak dicjuan Referred Provider Rishi Parker Jr Referred Provider Specialty Orthopedic S urgery Referral Priority Routine [employer] Other Reason for referral (narrative)* Reason Referral for neck pa in Diagnosis 1 Cervicalgia (M54.2) Diagnosis 2 Cervical spondylosis (M47.812) Referral Organization [facility] [place] roe Referring Provider First Name Robert Referring Provider Last Name Hamilton Referring Provider Specialty Internal Ak yoni Referred Organization [facility] Referred Address [address], [place],[address] Referred Provider Specialty Pain Medicin e Referral Priority Routine General Notes Patient has hx of ce rvical discectomy and fusion and presented w/ persistent neck pain, which radiated upwards causing a headache. She is being referred for treatment with the pain clinic. Clinical Notes Include MRI [employer] Other reason for visit Narrative* Auth/Cert Specialty Diagnoses / Procedures Referred By Contac t Referred To Contact Diagnoses Intractable back pain large disc herniation Jose Sharif MD [address] [place] [address] Phone: tel: fax: [employer] [address] [place] [address] Referral ID Status Reason Start Date Expiration Date Visits Re quested Visits Authorized [id number] 1 1 [employer] Summary Purpose Family History Relationship Condition Age [...] exam for internal medicine June 232024 2:57pm Chief Complaint Admit Date bp concerns June 25, 2024 10:0 4am Pre-Surgical Clearance; [facility] f/u back megan n July 04, 2024 2:57pm Amb Documentation July 11, 2024 8:5 1am BP concerns, pale, dizziness July 13, 2024 9:25am Reason for Visit Admit Date Cervical spondylosis June 25, 2024 10: 04am Hypertension June 25, 2024 10:0 4am Hx of fusion of cervical spine June 10:04am Cervical pain June 25, 2024 10:0 4am Central stenosis of spinal canal June 232024 2:57pm Herniated intervertebral disc of lumbar spine July 04, 2024 2:57pm Hypertension July 04, 2024 2:5 7pm Primary osteoarthritis, right shoulder M arch 2024 2:57pm Type 2 diabetes mellitus with hyperglyce [facility] July 04, 2024 2:57pm Additional Source Comments INFORMATION SOURCE (unrecogn ized section and content) DATE CREATED AUTHOR 06/20/2018 [facility] DATE CREATED AUTHOR AUTHOR'S ORGANIZ ATION 07/04/2018 [facility] DATE CREATED AUTHOR AUTHOR'S ORGANIZ ATION 09/18/2020 [facility] DATE CREATED AUTHOR AUTHOR'S ORGANIZ ATION 08/27/2022 [facility] DATE CREATED AUTHOR AUTHOR'S ORGANIZ ATION 04/18/2024 [facility] DATE CREATED AUTHOR AUTHOR'S ORGANIZ ATION 06/23/2024 [facility] DATE CREATED AUTHOR AUTHOR'S ORGANIZ ATION 07/11/2024 [facility] REASON FOR VISIT (unrecogniz ed section and [...] July 04, 2024 End: July 04, 2024 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 Relationship Specialty Start Date End Date Robert Villasenor DO [address] [place] [id number] PCP - General Internal Medicine 07/06/24 Team Status: Active Member Role Status Hakeem Villasenor DO Primary Care Provider Active Start: July 11, 2024 Farrah Sheikh CMA Attending Provider Active Start: July 11, 2024 Team Status: Active Member Role Status Hakeem Villasenor DO Primary Care Provider Active Start: July 12, 2024 Tera Bazzi DO Attending Provider Active S tart: July 12, 2024 Team Status: Inactive Member Role Status Dates Robert Ball , DO Primary Care Provide r, Attending Provider Active Start: July 13, 2024 End: July 13, 2024 Goals (unrecognized section and content) Goals [...] 8 HOURS, 2 doses, First dose on 07/09/24 at 0045, Last dose on Tue07/09/24 at 0845, Antimicrobial Indications: Surgical Prophylaxis, Administer over 5 mins. Reconstitute 2 g vial with 20 mL Sterile Water. Withdraw entire contents., Post-op 0105 (Given - Provider: Bijal Zavala, FLETCHER)075 (Given - Provider: Irma Villagomez, FLETCHER) citalopram (CELEXA) tablet 20 mg 20 mg, Oral, DAILY, First dose on Tue07/07/24 at 0900, Until Discontinued 754 (Given - Provider: Irma Villagomez RN) 08 (Given - Provider: Bhavani Anderson, FLETCHER) 08 (Given - Provider: Bhavani Anderson, FLETCHER) clonazePAM (KLONOPIN) tablet 1 mg 1 mg, Oral, NIGHTLY, First dose on Tue07/06/24 at 2200, Until Discontinued 2001 (Given - Provider: Sommer Alcala RN) 2055 (Given - Provider: Chrissy Cuellar, FLETCHER) 2100 (Due) gabapentin (NEURONTIN) capsule 200 mg 200 mg, Oral, 2 TIMES DAILY, First dose on Tue07/07/24 at 1000, Until Discontinued 754 (Given - Provider: Irma Villagomez RN)2001 (Given - Provider: Sommer Alcala, FLETCHER) 08 (Given - Provider: Bhavani Anderson, FLETCHER)2055 (Given - Provider: Chrissy Cuellar, FLETCHER) 08 (Given - Provider: Bhavani Anderson, FLETCHER)2100 (Due) glipiZIDE (GLUCOTROL) tablet 10 mg 10 mg, Oral, DAILY BEFORE BREAKFAST, First dose on Tue07/11/24 at 0700, Until Discontinued, Substituted for glimepiride (AMARYL). 0634 (Given - Provider: Chrissy Cuellar, FLETCHER) insulin lispro (HUMALOG,ADMELOG) injection vial 0-16 Units [...] Chakraborty RN)1606 (Not Given - Provider: Bhavani Anderson, FLETCHER - Reason: Order parameters not met)2056 (Given - Provider: Chrissy Cuellar, FLETCHER) 0713 (Not Given - Provider: [...] glucose check 0755 (Given - Provider: Irma Villagomez, FLETCHER)1301 (Given - Provider: Irma Villagomez, FLETCHER)1622 (Not Given - Provider: Irma Villagomez RN - Reason: Order parameters not met)2004 (Given - Provider: Sommer Alcala, FLETCHER) 0843 (Given - Provider: Bhavani Anderson, FLETCHER)1105 (Not Given - Provider: Bhavani Anderson RN [...] Anderson, FLETCHER)1409 (Held by provider - Provider: oJse Sharif MD - Reason: Other) 0900 (Automatically [...] Alcala RN) 0634 (Given - Provider: Chrissy Cuellar RN) polyethylene glycol (GLYCOLAX) packet 17 g 17 g, Oral, DAILY, First dose on Tue07/08/24 at 2015, Until Discontinued, Stir and dissolve one packet [...] Discontinued, Post-op 0755 (Given - Provider: Irma Villagomez RN)2002 (Given - Provider: Sommer Alcala RN) 0843 (Given - Provider: Bhavani Anderson, FLETCHER)2055 (Given - Provider: Chrissy Cuellar RN) 0840 [...] Alcala RN) 0840 (Given - Provider: Bhavani Anderson RN)2058 (Not Given - Provider: Chrissy Cuellar RN [...] in combination with first line therapy., Post-op 1711 (Given - Provider: Bhavani Anderson RN) cyclobenzaprine (FLEXERIL) tablet 10 mg 10 mg, Oral, 3 TIMES DAILY PRN, Starting on Tue07/08/24 at 1950, Until Discontinued, Muscle spasms, Post-op 0442 (Given - Provider: Bijal Zavala, RN)1302 (Given - Provider: Irma Villagomez, FLETCHER)2130 (Given - Provider: Sommer Alcala, RN) 0533 (Given - Provider: Sommer Alcala, RN)1702 (Given - Provider: Bhavani Anderson, FLETCHER) 0843 (Given - Provider: Bhavani Anderson RN) dextrose 10 % infusion IntraVENous, at 100 [...] for injection by adding 1 mL of director of field service-supplied sterile diluent or sterile water for injection [...] Villagomez RN)1302 (See Alternative - Provider: Irma Villagomez, FLETCHER)1724 (See Alternative - Provider: Irma Villagomez RN)2130 (See Alternative - Provider: Sommer Alcala RN) 0134 (Given - Provider: Sommer Alcala RN)0532 (See Alternative - Provider: Sommer Alcala RN)0944 (See Alternative - Provider: Bhavani Anderson RN)1555 (See Alternative - Provider: Bhavani Anderson RN)2055 (See Alternative - Provider: Chrissy Cuellar RN) [...] Villagomez, RN)1724 (Given - Provider: Irma Villagomez, FLETCHER)2130 (Given - Provider: Sommer Alcala RN) 0134 (See Alternative - Provider: Sommer Alcala RN)0532 (Given - Provider: Sommer Alcala RN)0944 (Given - Provider: Bhavani Anderson, FLETCHER)1555 (Given - Provider: Bhavani Anderson, FLETCHER)2055 (Given - Provider: Chrissy Cuellar RN) 0353 (See Alternative - Provider: Chrissy Cuellar RN)0843 (Given - Provider: Bhavani Anderson RN) magnesium hydroxide (MILK OF MAGNESIA) 400 MG/5ML [...] Zavala RN)1108 (See Alternative - Provider: Irma Villagomez, FLETCHER) morphine (PF) injection 2 mg(Linked Group 5) [...] ordered. 1948 (See Alternative - Provider: Chrissy Cuellar RN) naloxone (NARCAN) injection 0.4 mg 0.4 mg, [...] on Tue07/08/24 at 1950, Until Tue07/09/24 at 194, Pain Severe (7-10), If oral and IV [...] BE BASED ON THE PRIMARY CLINICAL RECORDS. [employer] provides no warranty or guarantee of the accuracy or completeness of information in this document.
[2024-07-18 10:03] LABS: Basophils Percent Auto 0.4 % (0.2-2.0); Eosinophils Absolute Auto 0.3 10^3/uL (0.0-0.7); Eosinophils Percent Auto 4.7 % (0.9-7.0); Hematocrit 29.3 % (36.0-48.0); Hemoglobin 9.5 g/dL (12.0-16.0); Immature Granulocytes Abs Auto 0.03 10^3/uL (0.00-0.03); Immature Granulocytes Pct Auto 0.6 % (0.0-0.5); Lymphocytes Absolute Auto 1.2 10^3/uL (1.2-3.8); Mean Corpuscular HGB Conc 32.4 g/dL (29.9-35.2); Mean Corpuscular Hemoglobin 29.1 pg (26.7-34.0); Mean Corpuscular Volume 89.6 fL (81.0-99.0); Mean Platelet Volume 9.2 fL (9.5-13.5); Monocytes Absolute Auto 0.4 10^3/uL (0.3-0.8); Monocytes Percent Auto 7.5 % (1.7-12.0); Neutrophils Absolute Auto 3.5 10^3/uL (1.4-6.5); Neutrophils Percent Auto 64.8 % (43.0-75.0); Platelet Count 259 10^3/uL (150-450); Red Blood Count 3.27 10^6/uL (4.20-5.40); Red Cell Distribution Width 12.3 % (11.0-15.0); White Blood Count 5.3 10^3/uL (4.0-11.0)
== END 2024-07-18 09:35 | disposition home or self-care (01) ==
LOC: LAB 09:36
PROVIDERS: PCP Internal Medicine; Visit Provider Internal Medicine
DX: D62 Acute posthemorrhagic anemia (principal)
CPT/HCPCS: 36415; 85025

== ENCOUNTER 2024-07-24 08:54 | Emergency (ER) | payer OTHER, SELFPAY ==
[2024-07-24 09:03] VITALS: BP 170/90; PULSE 72; TEMP 37; O2SAT 98; BMI 33.1
--- NOTE | 2024-07-24 09:13 | PC.NURSE ---
Lumbar fusion done on 07/08/24, incision to mid low back well approx, no redness or drainage present, scabbing noted to incision.
--- NOTE | 2024-07-24 09:15 | ED_ITS ---
HPI HPI - General Adult General Chief complaint: Extremity Injury, Lower Stated complaint: LOWER EXTREMITY WEAKNESS/PAIN Time Seen by Provider: 07/24/24 08:58 Source: patient Mode of arrival: walk-in History of Present Illness HPI narrative: 64-year-old female presents for pain and tingling in her right sepulveda area. She had lumbar surgery about 2 weeks ago for herniated disc. She had fallen 2 days ago because that right leg has been weak. She had been put on a steroid pack for this issue but did not seem to work. Related Data Home Medications ?Medication ?Instructions ?Recorded ?Confirmed atenolol 50 mg tablet 50 mg PO DAILY 09/28/22 07/24/24 citalopram 40 mg tablet (Celexa) 40 mg PO DAILY 09/28/22 07/24/24 glimepiride 4 mg tablet 4 mg PO DAILY 09/28/22 07/24/24 levothyroxine 125 mcg tablet 125 mcg PO DAILY 09/28/22 07/24/24 (Synthroid) metformin 500 mg tablet 500 mg PO BID 09/28/22 07/24/24 pravastatin 40 mg tablet 40 mg PO DAILY 09/28/22 07/24/24 tizanidine 4 mg tablet 4 mg PO .hs muscle spasticity 09/28/22 07/24/24 clonazepam 1 mg tablet (Klonopin) 1.5 mg PO DAILY 05/18/23 07/24/24 rizatriptan 10 mg tablet (Maxalt) 10 mg PO Q2H PRN migraine headache 05/18/23 07/24/24 etodolac 500 mg tablet 500 mg PO BID 05/09/24 07/24/24 Previous Rx's ?Medication ?Instructions ?Recorded hydrocodone 5 mg-acetaminophen 325 1 tab PO Q6H PRN pain #20 tabs 06/30/24 mg tablet polyethylene glycol 3350 17 17 g PO DAILY PRN constipation 06/30/24 gram/dose oral powder (Miralax) #510 grams prednisone 10 mg tablet See Rx Instructions .Route 07/02/24 .COMPLEX #18 tabs oxycodone-acetaminophen 5 mg-325 1 tab PO Q6H PRN pain 5 days #20 07/24/24 mg tablet (Percocet) tabs Allergies Allergy/AdvReac Type Severity Reaction Status Date / Time calcium (From DHEA) Allergy Severe respirator Verified 07/24/24 09:03 arrest calcium carbonate (From DHEA) Allergy Severe respirator Verified 07/24/24 09:03 arrest prasterone (DHEA) (From DHEA) Allergy Severe respirator Verified 07/24/24 09:03 arrest iodine Allergy Intermediate Unknown Verified 07/24/24 09:03 latex Allergy Intermediate Unknown Verified 07/24/24 09:03 meperidine (From Demerol) Allergy Intermediate Unknown Verified 07/24/24 09:03 sumatriptan (From Imitrex) Allergy Intermediate Unknown Verified 07/24/24 09:03 Opioid HPI Opioid Management Most Recent Opioid Data: Last Pain Scale 7 07/06/24 14:21 07/06/24 Ur Phencyclidine Scrn Negative (NEGATIVE) 12/17/22 11:00 11/24 09/14 Review of Systems ROS Narrative A ten point review of systems is negative except as noted above. [facility] Medical History Shoulder pain, right ?M25.511 - Pain in right shoulder (ICD-10) Osteoarthritis ?M19.90 - Unspecified osteoarthritis, unspecified site (ICD-10) Low back pain ?M54.50 - Low back pain, unspecified (ICD-10) Neck pain ?M54.2 - Cervicalgia (ICD-10) TIA (transient ischemic attack) ?G45.9 - Transient cerebral ischemic attack, unspecified (ICD-10) Hearing deficit ?H91.90 - Unspecified hearing loss, unspecified ear (ICD-10) Acid reflux ?K21.9 - Gastro-esophageal reflux disease without esophagitis (ICD-10) Obesity ?E66.9 - Obesity, unspecified (ICD-10) Diabetes ?E11.9 - Type 2 diabetes mellitus without complications (ICD-10) Hypothyroid ?E03.9 - Hypothyroidism, unspecified (ICD-10) Sleep apnea ?G47.30 - Sleep apnea, unspecified (ICD-10) Irregular heart beat ?I49.9 - Cardiac arrhythmia, unspecified (ICD-10) High cholesterol ?E78.00 - Pure hypercholesterolemia, unspecified (ICD-10) Hypertension ?I10 - Essential (primary) hypertension (ICD-10) Surgical History H/O cosmetic surgery ?Z98.890 - Other specified postprocedural states (ICD-10) H/O thyroidectomy ?E89.0 - Postprocedural hypothyroidism (ICD-10) H/O lumbosacral spine surgery ?Z98.890 - Other specified postprocedural states (ICD-10) H/O operation on finger ?Z98.890 - Other specified postprocedural states (ICD-10) H/O carpal tunnel repair ?Z98.890 - Other specified postprocedural states (ICD-10) H/O arthroscopic knee surgery ?Z98.890 - Other specified postprocedural states (ICD-10) H/O: hysterectomy ?Z90.710 - Acquired absence of both cervix and uterus (ICD-10) Hx of appendectomy ?Z90.49 - Acquired absence of other specified parts of digestive tract (ICD- 10) H/O exploratory laparotomy ?Z98.890 - Other specified postprocedural states (ICD-10) H/O: ?Z98.891 - History of uterine scar from previous surgery (ICD-10) H/O shoulder surgery ?Z98.890 - Other specified postprocedural states (ICD-10) H/O cervical spine surgery ?Z98.890 - Other specified postprocedural states (ICD-10) S/P cataract extraction ?Z98.49 - Cataract extraction status, unspecified eye (ICD-10) Social History Little interest or pleasure in doing things: not at all Feeling down, depressed, or hopeless: not at all Exam Narrative Exam Narrative: Nurses note and vital signs reviewed and patient is not hypoxic. General: The patient appears well and in no apparent distress. Patient is resting comfortably on cart. Skin: Warm, dry, no pallor noted. There is no rash noted. Head: Normocephalic, atraumatic Eye: Normal conjunctiva, no drainage Ears, Nose, Mouth, and Throat: oral mucosa is moist. Nares patent. Cardiovascular: Regular Rate and Rhythm Respiratory: Patient is in no distress, no accessory muscle use, lungs are clear to auscultation, no wheezing, rales or rhonchi Back: Healing surgical wound present. No dehiscence or erythema GI: Soft and nontender Musculoskeletal: The right leg is examined. There appears to be no swelling or tenderness of the right calf. The knee has full range of motion without swelling. Ankle and hip are nontender Neurological: A&O, normal speech Psychiatric: Cooperative Constitutional Vital Signs, click to edit/add: Last Vital Signs Temp 98.6 F 07/24/24 09:03 Pulse 63 07/24/24 10:58 Resp 20 07/24/24 10:58 BP 181/78 H 07/24/24 10:58 Pulse Ox 96 07/24/24 10:58 O2 Del Method Room Air 07/24/24 10:58 Course Vital Signs Vital signs: Vital Signs Temperature 98.6 F 07/24/24 09:03 Pulse Rate 72 07/24/24 09:03 Respiratory Rate 20 07/24/24 09:03 Blood Pressure 170/90 H 07/24/24 09:03 Pulse Oximetry 98 07/24/24 09:03 Oxygen Delivery Method Room Air 07/24/24 09:03 Temperature 98.6 F 07/24/24 09:03 Pulse Rate 63 07/24/24 10:58 Respiratory Rate 20 07/24/24 10:58 Blood Pressure 181/78 H 07/24/24 10:58 Pulse Oximetry 96 07/24/24 10:58 Oxygen Delivery Method Room Air 07/24/24 10:58 Medical Decision Making [facility] Narrative Medical decision making narrative: Today CT scan shows disc bulging at L3-L4 with findings suspect for right lateral disc herniation impacting the exiting nerve at this level. Case discussed with Elinor at Dr. Saint Zambrano's office and we have arranged for the patient to be seen there in 3 days. She was prescribed Percocet and given IM morphine here. She is been on steroids and is finishing them up and they have not helped I do not feel that another course would be beneficial to the patient. She is already on a muscle relaxer at home. Treatment diagnosis and follow-up were discussed with the patient. Differential Diagnosis Differential Diagnosis: Disc herniation, sciatica, lumbar radiculopathy Imaging Data CT lumbar: Radiologist's impression: Right foraminal disc herniation at L3-L4, interval surgery and fusion Discharge Plan Discharge Chief Complaint: Extremity Injury, Lower Clinical Impression: Lumbar radiculopathy, right Patient Disposition: Home, Self-Care Time of Disposition Decision: 10:58 Condition: Good Mode of Transportation: Private Vehicle Prescriptions / Home Meds: New oxycodone-acetaminophen [Percocet] 5-325 mg tablet 1 tab PO Q6H PRN (Reason: pain) 5 Days Qty: 20 0RF No Action rizatriptan [Maxalt] 10 mg tablet 10 mg PO Q2H PRN (Reason: migraine headache) Rx Instructions: do not exceed 3 doses per 24 hrs clonazepam [Klonopin] 1 mg tablet 1.5 mg PO DAILY hydrocodone-acetaminophen 5-325 mg tablet 1 tab PO Q6H PRN (Reason: pain) Qty: 20 0RF polyethylene glycol 3350 [Miralax] 17 gram/dose powder 17 g PO DAILY PRN (Reason: constipation) Qty: 510 0RF prednisone 10 mg tablet See Rx Instructions .ROUTE .COMPLEX Qty: 18 0RF Rx Instructions: 3 by mouth daily for three days then 2 by mouth daily for three days then 1 by mouth daily for three days tizanidine 4 mg tablet 4 mg PO .hs Rx Instructions: prn bid atenolol 50 mg tablet 50 mg PO DAILY levothyroxine [Synthroid] 125 mcg tablet 125 mcg PO DAILY citalopram [Celexa] 40 mg tablet 40 mg PO DAILY pravastatin 40 mg tablet 40 mg PO DAILY metformin 500 mg tablet 500 mg PO BID glimepiride 4 mg tablet 4 mg PO DAILY etodolac 500 mg tablet 500 mg PO BID Print Language: Estonian Instructions: Lumbar Radiculopathy (ED) Referrals: Robert Cruz DO [Primary Care Provider] - 1 week
--- OUTSIDE RECORDS SUMMARY | 2024-07-24 09:33 | XMS_ITS | CCD ---
Author Organization [facility] CliniSy[facility]v Care Team Providers Care Instructional Supervisor Name Role Phone REECE GARSIAIC New Admitting Unavailable SUN JENNA T Attending Unavailable LISANDRO MEEKS Consulting Unavailable SUN JENNA New Referring Unavailable Robert Villasenor Unavailable HAMILTON, DR NINO Admitting Unavailable BALL, DR NINO Attending Unavailable BALL, DR NINO Consulting Unavailable BALL, DR NINO Primary Care Unavailable STEPANIC, DR BLACKWELL Attending Unavailable STEPANIC, DR BLACKWELL Consulting Unavailable STEPANIC, DR BALCKWELL Admitting Unavailable BALL, DR NINO Primary Care [...] Unavailable Robert Villasenor DO Primary Care Provider [phone] TERA TRAN Referring Unavailable ROBERT VILLASENOR Primary Care Unavailable JOSE SHARIF Attending Unavailable JOSE SHARIF Admitting Unavailable ELOISE VELIZ Consulting Unavailable Allergies Allergy Classification Reported Allergen(s) Allergy Type Date of Onset Reaction(s) Facility (3 sources) Contrast media; Translations: [CONTRAST DYE] Propensity to adverse reactions to drug (disorder) 09-30-19 11 [facility] Repository (2 sources) HYDROmorphone; Translations: [HYDROMORPHONE (BULK)] Drug Allergy 08-17-19 17 [facility] Repository (20 sources) Latex; Translations: [LATEX] Propensity to adverse reactions to drug (disorder) 09-30-19 11 [facility] Repository (2 sources) Meperidine; Translations: [MEPERIDINE (PF)] Drug Allergy 09-30-19 11 [facility] Repository (2 sources) Povidone-Iodine; Translations: [POVIDONE-IODINE] Drug Allergy 10-21-19 17 [facility] Repository (2 sources) SUMAtriptan; Translations: [SUMATRIPTAN SUCCINATE] Drug Allergy 09-30-19 11 [facility] Repository (2 sources) INFLUENZA VACCINE TRI-SP 09-10; Translations: [INFLUENZA VACCINE TRI-SP 09-10] Propensity to adverse reactions to drug (disorder) 09-30-19 11 [facility] Repository (3 sources) DHE; Translations: [DHE] Propensity to adverse reactions to drug (disorder) 10-24-19 13 [facility] Repository (20 sources) HYDROmorphone Drug Allergy 12-20-19 24 Unknown, Unknown Reaction [facility] (20 sources) Iodine; Translations: [iodine] Drug Allergy 10-24-19 13 Unknown, Unknown Reaction [facility] Repository (20 sources) Meperidine Drug Allergy 12-20-19 24 Unknown, Unknown Reaction [facility] (20 sources) SUMAtriptan Drug Allergy 12-20-19 24 [facility] (20 sources) Fluad Drug allergy 12-20-19 24 Unknown, Unknown Reaction [facility] (18 sources) DHEA Drug allergy 07-07-19 25 Anaphylaxis [employer] [facility] [employer] Other (2 sources) HYDROmorphone; Translations: [Dilaudid] Drug Allergy 10-24-19 13 [facility] Repository (1 source) Meperidine Drug Allergy 10-24-19 13 [facility] Repository (2 sources) Plasmin; Translations: [Imitrex] Drug Allergy 10-24-19 13 [facility] Repository (12 sources) influenza A virus (H1N1) antigen / influenza A virus (H3N2) antigen / influenza B virus antigen Drug Allergy 11-21-19 14 Comment:FLU VACCINE [employer] [facility] [employer] Other (12 sources) Contraindication to Flu Injection Propensity to adverse reactions 03-07-20 Comment:advers e rxn/side effects [employer] [facility] [employer] Other (3 sources) patient allergy list reviewed by nurse or physicia Propensity to adverse reactions 12-22-19 Comment:Done [employer] [facility] [employer] Other (6 sources) Calcium Drug Allergy 12-20-19 24 Unknown Reaction [facility] (6 sources) Calcium Carbonate Drug Allergy 12-20-19 24 Unknown Reaction [facility] (6 sources) prasterone (DHEA) Allergy to substance 12-20-19 24 Unknown Reaction [facility] (6 sources) Fluad Quadrivalent Allergy to substance 04-29-19 24 Comment:FLU VACCINE [facility] Comment on above: Onset Date: 11/21/19 14 (1 source) Meperidine; Translations: [Demerol HCl] Drug Allergy [facility] Repository (1 source) flu vaccines; Translations: [flu vaccines] Propensity to adverse reactions (disorder) [facility] Repository (1 source) Iodine Strong Propensity to adverse reactions to drug 07-07-19 Hives [facility] [employer] (1 source) Meperidine Drug Allergy 07-07-19 25 [facility]See Comments[facility] Current Medications Medication Drug Class(es) Dates Sig (Normalized) Sig (Original) acetaminophen 325 mg oral tablet (2 sources) Start: 07-08-2024 Start: 07-06-2024 acetaminophen (TYLENOL) tablet 650 mg acetaminophen 325 mg / HYDROcodone bitartrate 5 mg oral tablet (6 sources) Opioid Agonist Start: 07-18-2024 take 1 tablet by mouth every four to six hours as needed for pain Hydrocodone-Acetaminophen 5-325 mg tablet Active 1 TAB PO EVERY 4-6 HOURS as needed for pain 19 11July 18, 2024 Start: 07-06-2024 HYDROcodone-ac etaminophen (NORCO) 5-325 MG per tablet 1 tablet Start: 07-04-2024 End: 07-18-2024 take 1 tablet by mouth every four to six hours as needed for pain Hydrocodone-Acetaminophen 5-325 mg table t Discontinued 1 TAB PO EVERY 4-6 HOURS as needed for pain 19 11July 04, 2024 July 18, 2024 11:05am etodolac 500 mg oral tablet (20 sources) Nonsteroidal Anti-inflammatory Drug Start: 07-08-2024 take [...] needed for headache 60 April 06, 2024 11:06am July 08, 2024 10:42am fluconazole 100 mg oral tablet (16 sources) [...] for injection by adding 1 mL of caving guide-supplied sterile diluent or sterile water for injection [...] remains LESS THAN 70 mg/dL, notify provider. levothyroxine sodium 0.125 mg oral tablet (20 [...] dose. Start: 07-26-2022 take 1 tablet by [facility] once daily in the morning Levothyroxine Sodium 125 MCG 1 tablet in the morning on an empty stomach Orally Once a day Jul, Active lisinopril 5 mg oral tablet (1 source) [...] Magnesium Aspart,Citrate,Ox ashutosh 400 mg magnesium capsule (4 sources) Start: 12-20-2023 take 1 capsule by mouth once daily Magnesium Aspart,Citrate,Oxid e 400 mg magnesium capsule Active 400 MG PO Daily December 20, 2023 12:00am Start: 12-20-2023 take 1 capsule by [facility] once daily Magnesium Aspart,Citrate,Oxide 400 mg [...] disintegrating tablet 4 mg polyethylene glycol 3350 51270 mg powder for oral solution (1 source) [...] x3days. Suspended rizatriptan 10 mg oral tablet (13 sources) Serotonin-1b and Serotonin-1d Receptor Agonist Start: 12-20-2023 take 3 tablets by mouth every twenty-four hours as needed Rizatriptan (Maxalt) 10 mg tablet Active 10 MG PO EVERY 2-4 HOURS as needed December 20, 2023 12:00am do not exceed 3 doses per 24 hrs Start: 11-04-2022 take 1 tablet by fredrick th every two hours as needed for headache Maxalt-BUFFERER 10 MG 1 tablet Orally PRN headache, [...] at bedtime as needed for muscle spasticity December 16, 2023 12:52pm February 29, 2024 [...] (Normalized) Sig (Original) 20 ml albumin human, longterm 250 mg/ml injection (1 source) Human Serum [...] hypoproteinemia amitriptyline hydrochloride 10 mg oral tablet (13 sources) Tricyclic Antidepressant Start: 12-20-2023 End: 12-20-2023 [...] Start: 07-08-2024 take 10 mg rectal ro sammi once daily as needed for constipation 10 [...] days Sep, Active [facility] daily as needed clonazePAM (KLONOPIN) 1 [...] Post-op docusate sodium 50 mg / sennosides, longterm 8.6 mg oral tablet (1 source) Start: 07-08-2024 take 1 tablet by mouth twice daily 1 tablet, Oral, 2 TIMES DAILY, First dose on 07/08/24 at 2100, Until Discontinued, Post-op 2 ml [...] 60 minutes of last blood glucose check LORazepam 0.5 mg oral tablet (1 source) [...] Opioid Reversal naratriptan 2.5 mg oral tablet (13 sources) Serotonin-1b and Serotonin-1d Receptor Agonist Start: [...] 20 mL/lumen, Post-[place] [address] mg powder for oral suspension (1 source) [...] Problem Classification Problem Date Documented Date Episodic/Chronic Acute posthemorrhagic anemia (3 sources) Acute posthemorrhagic anemia; Translations: [Acute posthemorrhagic anemia] 07-13-2024 Episodic Anxiety disorders (20 sources) Generalized anxiety disorder; Translations: [Generalized anxiety disorder] 06-13-2023 Chronic Blindness and vision defects (2 sources) Visual hallucinations; Translations: [Visual hallucinations] 07-15-2024 Episodic Complications of surgical procedures or medical care (1 source) Postprocedural hypothyroidism; Translations: [POSTPROCEDURAL HYPOTHYROIDISM] Onset: 08-08-202 2 Chronic Diabetes mellitus with complications (20 [...] E Codes: Adverse effects of medical drugs (3 sources) Adverse effect of other parasympatholytics [anticholinergics and antimuscarinics] and spasmolytics, subsequent encounter; Translations: [Sedative adverse reaction] Episodic Esophageal disorders (17 sources) Gastro-esophageal reflux disease with esophagitis; Translations: [Gastroesophageal reflux disease with esophagitis without hemorrhage] Chronic Essential hypertension (20 sources) Essential hypertension; Translations: [Essential (primary) hypertension] Onset: 2 Chronic Fluid and electrolyte disorders (4 sources) Low blood pressure; Translations: [Hypovolemia] 07-13-2024 Episodic Headache; including migraine (12 sources) Chronic intractable [...] left breast, unspecified quadrant] 02-24-2024 Episodic Osteoarthritis (6 sources) Primary osteoarthritis, left shoulder; Translations: [Primary osteoarthritis, right shoulder] Onset: 9 07-04-2024 Chronic Other connective tissue disease (4 sources) History of cervical spine fusion; Translations: [Arthrodesis status] 02-24-2024 Episodic Other connective tissue disease (3 sources) Arthrodesis status; Translations: [Arthrodesis status] 06-25-2024 Episodic Other nervous system disorders (1 source) Dysarthria and anarthria Episodic Other non-traumatic joint disorders (1 source) [...] to excess calories] Chronic Residual codes; unclassified (20 sources) Obstructive sleep apnea syndrome; Translations: [Obstructive [...] Range Facility Basophils Auto (Bld) [#/Vol] on 07-18-2024 Basophils (Bld) [#/Vol] Automated basophil count 0.0-0.1 [facility] Basophils/100 WBC Auto (Bld) on 07-18-2024 Basophils/100 WBC (Bld) Automated basophil % 0.2-2.0 [facility] Eosinophils/100 WBC Auto (Bl d)on 07-18-2024 Eosinophils/100 WBC (Bld) Automated eosinophil % 0.9-7.0 [facility] Erythrocyte distribution wid th Auto (RBC) [Ratio]on 07-18-2024 Erythrocyte distribution width (RBC) [Ratio] Erythrocyte distribution width [Ratio] by Automated count 11.0-15.0 [facility] Hematocrit Auto (Bld) [Volum e fraction]on 07-18-2024 Hematocrit (Bld) [Volume fraction] Hematocrit [Volume Fraction] of Blood by Automated count Low 36.0-48.0 [facility] Hemoglobin [Mass/volume] in Bloodon 07-18-2024 Hemoglobin (Bld) [Mass/Vol] Hemoglobin [Mass/volume] in Blood Low 12.0-16.0 [facility] Laboratory - Hematology and Cell countson 07-18-2024 Immature granulocytes/100 WBC (Bld) 0.6 % High 0.0-0.5 [facility] Leukocytes [#/volume] correc chip for nucleated erythrocytes in Blood by Automated counon 07-18-2024 WBC corrected for nucl RBC Auto (Bld) [#/Vol] Leukocytes [#/volume] corrected for nucleated erythrocytes in Blood by Automated coun 4.0-11.0 [facility] Lymphocytes Auto (Bld) [#/Vo l]on 07-18-2024 Lymphocytes (Bld) [#/Vol] Lymphocytes [#/volume] in Blood by Automated count 1.2-3.8 [facility] Lymphocytes/100 WBC Auto (Bl d)on 07-18-2024 Lymphocytes/100 WBC (Bld) Lymphocytes/100 leukocytes in Blood by Automated count 20.5-60.0 [facility] MCH Auto (RBC) [Entitic mass ]on 07-18-2024 MCH (RBC) [Entitic mass] MCH [Entitic mass] by Automated count 26.7-34.0 [facility] MCHC Auto (RBC) [Mass/Vol]on 07-18-2024 MCHC (RBC) [Mass/Vol] MCHC [Mass/volume] by Automated count 29.9-35.2 [facility] MCV Auto (RBC) [Entitic vol] on 07-18-2024 MCV (RBC) [Entitic vol] MCV [Entitic volume] by Automated count 81.0-99.0 [facility] Monocytes Auto (Bld) [#/Vol] on 07-18-2024 Monocytes (Bld) [#/Vol] Automated blood monocyte count 0.3-0.8 [facility] Monocytes/100 WBC Auto (Bld) on 07-18-2024 Monocytes/100 WBC (Bld) Automated monocyte % 1.7-12.0 [facility] Neutrophils Auto (Bld) [#/Vo l]on 07-18-2024 Neutrophils (Bld) [#/Vol] Neutrophils [#/volume] in Blood by Automated count 1.4-6.5 [facility] Neutrophils/100 WBC Auto (Bl d)on 07-18-2024 Neutrophils/100 WBC (Bld) Automated neutrophil % 43.0-75.0 [facility] No Panel Informationon 07-18 Eosinophils # (Auto) 0.3 10 3/uL 0.0-0.7 [facility] Immature Granulocyte # (Auto) 0.03 10 3/uL 0.00-0.03 [facility] Platelet mean volume Auto (B ld) [Entitic vol]on 07-18-2024 Platelet mean volume (Bld) [Entitic vol] Platelet mean volume [Entitic volume] in Blood by Automated count Low 9.5-13.5 [facility] Platelets Auto (Bld) [#/Vol] on 07-18-2024 Platelets (Bld) [#/Vol] Platelets [#/volume] in Blood by Automated count 150-450 [facility] RBC Auto (Bld) [#/Vol]on RBC (Bld) [#/Vol] Erythrocytes [#/volu me] in Blood by Automated count Low 4.20-5.40 [facility] Basophils Auto (Bld) [#/Vol] on 07-12-2024 Basophils (Bld) [#/Vol] Automated basophil count 0.0-0.1 [facility] Basophils/100 WBC Auto (Bld) on 07-12-2024 Basophils/100 WBC (Bld) Automated basophil % 0.2-2.0 [facility] Eosinophils/100 WBC Auto (Bl d)on 07-12-2024 Eosinophils/100 WBC (Bld) Automated eosinophil % 0.9-7.0 [facility] Erythrocyte distribution wid th Auto (RBC) [Ratio]on 07-12-2024 Erythrocyte distribution width (RBC) [Ratio] Erythrocyte distribution width [Ratio] by Automated count 11.0-15.0 [facility] Estimated glomerular filtrat ion rate (GFR) non- Americanon 07-12-2024 GFR/1.73 sq M.predicted among non-blacks MDRD (S/P/Bld) [Vol rate/Area] Estimated glomerular filtration rate (GFR) non- Low >=60 mL/min/1.73m 2 [facility] Hematocrit Auto (Bld) [Volum e fraction]on 07-12-2024 Hematocrit (Bld) [Volume fraction] Hematocrit [Volume Fraction] of Blood by Automated count Low 36.0-48.0 [facility] Hemoglobin [Mass/volume] in Bloodon 07-12-2024 Hemoglobin (Bld) [Mass/Vol] Hemoglobin [Mass/volume] in Blood Low 12.0-16.0 [facility] Laboratory - Chemistry and C hemistry - challengeon 07-12-2024 Calcium [Mass/Vol] 8.6 mg/dL 8.5-10.1 [facility] Chloride [Moles/Vol] 102 mmol/L 98-107 [facility] CO2 [Moles/Vol] 24.7 mmol/L 21.0-32.0 [facility] Creatinine [Mass/Vol] 1.94 mg/dL High 0.55-1.02 [facility] GFR/1.73 sq M.predicted MDRD (S/P/Bld) [Vol rate/Area] 31 mL/min/{1.73_m2} Low >=60 mL/min/1.73m 2 [facility] Glucose [Mass/Vol] 203 mg/dL High 74-106 [facility] Potassium [Moles/Vol] 4.6 mmol/L 3.5-5.1 [facility] Sodium [Moles/Vol] 137 mmol/L 136-145 [facility] Urea nitrogen [Mass/Vol] 24.0 mg/dL High 7.0-18.0 [facility] Urea nitrogen/Creatinine [Mass ratio] 12.4 mg/mg [facility] Laboratory - Hematology and Cell countson 07-12-2024 Immature granulocytes/100 WBC (Bld) 1.8 % High 0.0-0.5 [facility] Leukocytes [#/volume] correc chip for nucleated erythrocytes in Blood by Automated counon 07-12-2024 WBC corrected for nucl RBC Auto (Bld) [#/Vol] Leukocytes [#/volume] corrected for nucleated erythrocytes in Blood by Automated coun 4.0-11.0 [facility] Lymphocytes Auto (Bld) [#/Vo l]on 07-12-2024 Lymphocytes (Bld) [#/Vol] Lymphocytes [#/volume] in Blood by Automated count 1.2-3.8 [facility] Lymphocytes/100 WBC Auto (Bl d)on 07-12-2024 Lymphocytes/100 WBC (Bld) Lymphocytes/100 leukocytes in Blood by Automated count 20.5-60.0 [facility] MCH Auto (RBC) [Entitic mass ]on 07-12-2024 MCH (RBC) [Entitic mass] MCH [Entitic mass] by Automated count 26.7-34.0 [facility] MCHC Auto (RBC) [Mass/Vol]on 07-12-2024 MCHC (RBC) [Mass/Vol] MCHC [Mass/volume] by Automated count 29.9-35.2 [facility] MCV Auto (RBC) [Entitic vol] on 07-12-2024 MCV (RBC) [Entitic vol] MCV [Entitic volume] by Automated count 81.0-99.0 [facility] Monocytes Auto (Bld) [#/Vol] on 07-12-2024 Monocytes (Bld) [#/Vol] Automated blood monocyte count 0.3-0.8 [facility] Monocytes/100 WBC Auto (Bld) on 07-12-2024 Monocytes/100 WBC (Bld) Automated monocyte % 1.7-12.0 [facility] Neutrophils Auto (Bld) [#/Vo l]on 07-12-2024 Neutrophils (Bld) [#/Vol] Neutrophils [#/volume] in Blood by Automated count 1.4-6.5 [facility] Neutrophils/100 WBC Auto (Bl d)on 07-12-2024 Neutrophils/100 WBC (Bld) Automated neutrophil % 43.0-75.0 [facility] No Panel Informationon 07-12 Eosinophils # (Auto) 0.2 10 3/uL 0.0-0.7 [facility] Immature Granulocyte # (Auto) 0.13 10 3/uL High 0.00-0.03 [facility] Platelet mean volume Auto (B ld) [Entitic vol]on 07-12-2024 Platelet mean volume (Bld) [Entitic vol] Platelet mean volume [Entitic volume] in Blood by Automated count 9.5-13.5 [facility] Platelets Auto (Bld) [#/Vol] on 07-12-2024 Platelets (Bld) [#/Vol] Platelets [#/volume] in Blood by Automated count 150-450 [facility] RBC Auto (Bld) [#/Vol]on RBC (Bld) [#/Vol] Erythrocytes [#/volu me] in Blood by Automated count Low 4.20-5.40 [facility] Serum or plasma anion gap de terminationon 07-12-2024 Anion gap [Moles/Vol] Serum or plasma anion gap determination [facility] ANION GAPon 07-11-2024 Anion gap [Moles/Vol] 10.0 mmol/L Normal 8.0-16.0 [facility] Comment on above: Result Comment: ANIO N GAP = Sodium -(Chloride + CO2) Performed By: #### P OCGL #### [facility] [address] [place] [address] Anion Gapon 07-11-2024 Anion gap [Moles/Vol] 10 mmol/L 8.0 - 16.0 meq/L [facility] Comment on above: ANION GAP = Sodium - (Chloride + CO2) Performed at [facility] [address] [place] [id number] BASIC METABOL PANELon 2024 Calcium [Mass/Vol] 8.9 mg/dL Normal 8.8-10.2 [facility] Comment on above: Performed By: #### P OCGL #### [address] [address] CO2 [Moles/Vol] 22 mmol/L Normal 22-29 [facility] Comment on above: Performed By: #### P OCGL #### [facility] [address] [place] [address] Creatinine [Mass/Vol] 1.0 mg/dL High 0.5-0.9 [facility] Comment on above: Performed By: #### P OCGL #### [address] [address] Glucose [Mass/Vol] 166 mg/dL High 74-109 [facility] Comment on above: Performed By: #### P OCGL #### [facility] [address] [place] [address] Urea nitrogen [Mass/Vol] 16 mg/dL Normal 8-23 [facility] Comment on above: Performed By: #### P OCGL #### [facility] [address] [place] [address] Chloride [Moles/Vol] 103 mmol/L Normal 98-111 [facility] Comment on above: Performed By: #### P OCGL #### [facility] [address] [place] [address] Potassium [Moles/Vol] 4.7 mmol/L Normal 3.5-5.2 [facility] Comment on above: Result Comment: Low level specimen hemolysis is present as indicated by the interference index on the Yamilet analyzer. ??The reported K+ level may be falsely increased. If clinically warranted, recollection of the specimen is suggested. Performed By: #### P OCGL #### [facility] [address] [place] [address] Sodium [Moles/Vol] 135 mmol/L Normal 135-145 [facility] Comment on above: Performed By: #### P OCGL #### [facility] [address] [place] [address] Basic metabolic 2000 panelon 07-11-2024 Calcium [Mass/Vol] 8.9 mg/dL 8.8 - 10. 2 mg/dL [facility] Comment on above: Performed at [facility] [address] [place] [address] Chloride [Moles/Vol] 103 mmol/L 98 - 11 1 meq/L [facility] CO2 [Moles/Vol] 22 mmol/L 22 - 29 meq/L [facility] Creatinine [Mass/Vol] 1.0 mg/dL High 0.5 - 0.9 mg/dL [facility] Glucose [Mass/Vol] 166 mg/dL High 74 - 109 mg/dL [facility] Interpretation and review of laboratory results Abnormal [facility] Potassium [Moles/Vol] 4.7 mmol/L 3.5 - 5.2 meq/L [facility] Comment on above: Low level specimen h emolysis is present as indicated by the interference index on the Yamilet analyzer. The reported K+ level may be falsely increased. If clinically warranted, recollection of the specimen is suggested. Sodium [Moles/Vol] 135 mmol/L 135 - 145 meq/L [facility] Urea nitrogen [Mass/Vol] 16 mg/dL 8 - 23 mg/dL [facility] GFR, ESTIMATEDon 07-11-2024 GFR/1.73 sq M.predicted MDRD (S/P/Bld) [Vol rate/Area] 62 mL/min/{1.73_m2} Normal >60 [facility] Comment on above: Pediatric calculator link https://www.kidney.org/professionals/kdoqi/gfr_calculatorped Effective Jan 25, 2022 These results are not intended for use in patients <18 years of age. eGFR results are calculated without a race factor using the 1 CKD-EPI equation. Careful clinical correlation is recommended, particularly when comparing to results calculated using previous equations. The CKD-EPI equation is less accurate in patients with extremes of muscle mass, extra-renal metabolism of creatinine, excessive creatine ingestion, or following therapy that affects renal tubular secretion. Performed at [facility] [place] [address] Result Comment: Soniya atric calculator link https://www.kidney.org/professionals/kdoqi/gfr_calculatorped [...] secretion. Performed By: #### P OCGL #### [facility] [employer] [address] [place] [address] GLUCOSE POCon 07-11-2024 Glucose [Mass/Vol] 177 mg/dL High 70-108 [facility] Comment on above: Performed at [facility] [place] [address] Performed By: #### P OCGL #### [employer] [address] [place] [address] Glucose Auto test strip (Bld ) [Mass/Vol]on 07-11-2024 Interpretation and review of laboratory results Abnormal [facility] HGB,HCTon 07-11-2024 Hematocrit (Bld) [Volume fraction] 33.4 % Low 37.0-47.[address] [facility] Comment on above: Performed at [facility] [place] [address] Performed By: #### P OCGL #### [employer] [address] [place] [address] Hemoglobin (Bld) [Mass/Vol] 10.8 g/dL Low 12.0-16.[address] [facility] Comment on above: Performed By: #### P OCGL #### [facility] [address] [place] [address] Hemoglobin and Hematocrit pa bhavna (Bld)on 07-11-2024 Interpretation and review of laboratory results Abnormal [facility] No Panel Informationon 07-[address] [facility] ANION GAPon 07-10-2024 Anion gap [Moles/Vol] 8.0 mmol/L Normal 8.0-16.0 [facility] Comment on above: Result Comment: ANIO N GAP = Sodium -(Chloride + CO2) Performed By: #### P OCGL #### [facility] [address] [place] [address] Anion Gapon 07-10-2024 Anion gap [Moles/Vol] 8 mmol/L 8.0 - 16.0 meq/L [facility] Comment on above: ANION GAP = Sodium - (Chloride + CO2) Performed at [facility] [address] [place] [address] BASIC METABOL PANELon 2024 Calcium [Mass/Vol] 8.8 mg/dL Normal 8.8-10.2 [facility] Comment on above: Performed By: #### P OCGL #### [facility] [address] [place] [address]67 CO2 [Moles/Vol] 26 mmol/L Normal 22-29 [facility] Comment on above: Performed By: #### P OCGL #### [facility] [address] [place] [address] 65395 Creatinine [Mass/Vol] 1.1 mg/dL High 0.5-0.9 [facility] Comment on above: Performed By: #### P OCGL #### [facility] [address] [place] [address] 36580 Glucose [Mass/Vol] 198 mg/dL High 74-109 [facility] Comment on above: Performed By: #### P OCGL #### [facility] [address] [place] [address] 17464 Urea nitrogen [Mass/Vol] 24 mg/dL High 8-23 [facility] Comment on above: Performed By: #### P OCGL #### [facility] [address] [place] [address] Chloride [Moles/Vol] 101 mmol/L Normal 98-111 [facility] Comment on above: Performed By: #### P OCGL #### [facility] [address] [place] [address] Potassium [Moles/Vol] 4.6 mmol/L Normal 3.5-5.2 [facility] Comment on above: Performed By: #### P OCGL #### [facility] [address] [place] [address] Sodium [Moles/Vol] 135 mmol/L Normal 135-145 [facility] Comment on above: Performed By: #### P OCGL #### [facility] [address] [place] [address] Basic metabolic 2000 panelon 07-10-2024 Calcium [Mass/Vol] 8.8 mg/dL 8.8 - 10. 2 mg/dL [facility] Comment on above: Performed at [facility] [address] [place] [address] Chloride [Moles/Vol] 101 mmol/L 98 - 11 1 meq/L [facility] CO2 [Moles/Vol] 26 mmol/L 22 - 29 meq/L [facility] Creatinine [Mass/Vol] 1.1 mg/dL High 0.5 - 0.9 mg/dL [facility] Glucose [Mass/Vol] 198 mg/dL High 74 - 109 mg/dL [facility] Potassium [Moles/Vol] 4.6 mmol/L 3.5 - 5.2 meq/L [facility] Sodium [Moles/Vol] 135 mmol/L 135 - 145 meq/L [facility] Urea nitrogen [Mass/Vol] 24 mg/dL High 8 - 23 mg/dL [facility] GFR, ESTIMATEDon 07-10-2024 GFR/1.73 sq M.predicted MDRD (S/P/Bld) [Vol rate/Area] 56 mL/min/{1.73_m2} Abnormal >60 [facility] Comment on above: Pediatric calculator link https://www.kidney.org/professionals/kdoqi/gfr_calculatorped Effective Jan 25, 2022 These results are not intended for use in patients <18 years of age. eGFR results are calculated without a race factor using the 2021 CKD-EPI equation. Careful clinical correlation is recommended, particularly when comparing to results calculated using previous equations. The CKD-EPI equation is less accurate in patients with extremes of muscle mass, extra-renal metabolism of creatinine, excessive creatine ingestion, or following therapy that affects renal tubular secretion. Performed at [facility] [place] [address] Result Comment: Pedi atric calculator link https://www.kidney.org/professionals/kdoqi/gfr_calculatorped Effective Jan 25, 2022 These results are not intended for use in patients <18 years of age. eGFR results are calculated without a race factor using the 2021 CKD-EPI equation. Careful clinical correlation is recommended, particularly when comparing to results calculated using previous equations. The CKD-EPI equation is less accurate in patients with extremes of muscle mass, extra-renal metabolism of creatinine, excessive creatine ingestion, or following therapy that affects renal tubular secretion. Performed By: #### P OCGL #### [facility] [address] [place] [address] 28680 GLUCOSE POCon 07-10-2024 Glucose [Mass/Vol] 267 mg/dL High 70-108 [facility] Comment on above: Performed at [facility] [address] [place] [address] Performed By: #### P OCGL #### [facility] [address] [place] [address]5832 Glucose [Mass/Vol] 154 mg/dL High 70-108 [facility] Comment on above: Performed at [facility] [address] [place] [address] Performed By: #### P OCGL #### [employer] [address] [place] [address]377 Glucose [Mass/Vol] 302 mg/dL High 70-108 [facility] Comment on above: Performed at [facility] [address] [place] [address] Performed By: #### P OCGL #### [facility] [address] [place] [address]272 Glucose [Mass/Vol] 205 mg/dL High 70-108 [facility] Comment on above: Performed at [facility] [employer] [facility] [address] [place] [address] Performed By: #### P OCGL #### [facility] [employer] [facility] [address] [place] [address] Glucose Auto test strip (Bld ) [Mass/Vol]on 07-10-2024 Interpretation and review of laboratory results Abnormal [facility] Interpretation and review of laboratory results Abnormal [facility] Interpretation and review of laboratory results Abnormal [facility] Interpretation and review of laboratory results Abnormal [facility] HGB,HCTon 07-10-2024 Hematocrit (Bld) [Volume fraction] 32.2 % Low 37.0-47.[address] [facility] Comment on above: Performed at [facility] [employer] [facility] [address] [place] [address] Performed By: #### P OCGL #### [facility] [employer] [facility] [address] [place] [address] Hemoglobin (Bld) [Mass/Vol] 10.0 g/dL Low 12.0-16.0 [facility] Comment on above: Performed By: #### P OCGL #### [facility] [employer] [address] [place] [address] Hemoglobin and Hematocrit pa bhavna (Bld)on 07-10-2024 Hemoglobin (Bld) [Mass/Vol] 10 g/dL Low [facility] Interpretation and review of laboratory results Abnormal [facility] No Panel Informationon 07-10 Interpretation and review of laboratory results Abnormal [facility] ANION GAPon 07-09-2024 Anion gap [Moles/Vol] 10.0 mmol/L Normal 8.0-16.0 [facility] Comment on above: Result Comment: ANIO N GAP = Sodium -(Chloride + CO2) Performed By: #### P OCGL #### [facility] [place] [address] Anion Gapon 07-09-2024 Anion gap [Moles/Vol] 10 mmol/L 8.0 - 16.0 meq/L [facility] Comment on above: ANION GAP = Sodium - (Chloride + CO2) Performed at [facility] [address] [place] [address] 20868 BASIC METABOL PANELon 2024 Calcium [Mass/Vol] 8.3 mg/dL Low 8.8-10.2 [facility] Comment on above: Performed By: #### P OCGL #### [facility] [address] [place] [address] 88075 CO2 [Moles/Vol] 23 mmol/L Normal 22-29 [facility] Comment on above: Performed By: #### P OCGL #### [facility] [address] [place] [address] 96002 Creatinine [Mass/Vol] 1.1 mg/dL High 0.5-0.9 [facility] Comment on above: Performed By: #### P OCGL #### [facility] [address] [place] [address] 03366 Glucose [Mass/Vol] 197 mg/dL High 74-109 [facility] Comment on above: Performed By: #### P OCGL #### [facility] [address] [place] [address] 30445 Urea nitrogen [Mass/Vol] 21 mg/dL Normal 8-23 [facility] Comment on above: Performed By: #### P OCGL #### [facility] [address] [place] [address] 66942 Chloride [Moles/Vol] 103 mmol/L Normal 98-111 [facility] Comment on above: Performed By: #### P OCGL #### [facility] [address] [place] [address] 55163 Potassium [Moles/Vol] 5.8 mmol/L High 3.5-5.2 [facility] Comment on above: Performed By: #### P OCGL #### [facility] [address] [place] [address] 90898 Sodium [Moles/Vol] 136 mmol/L Normal 135-145 [facility] Comment on above: Performed By: #### P OCGL #### [facility] [address] [place] [address] Basic metabolic 2000 panelon 07-09-2024 Calcium [Mass/Vol] 8.3 mg/dL Low 8.8 - 10. 2 mg/dL [facility] Comment on above: Performed at [facility] [address] [place] [address] Chloride [Moles/Vol] 103 mmol/L 98 - 11 1 meq/L [facility] CO2 [Moles/Vol] 23 mmol/L 22 - 29 meq/L [facility] Creatinine [Mass/Vol] 1.1 mg/dL High 0.5 - 0.9 mg/dL [facility] Glucose [Mass/Vol] 197 mg/dL High 74 - 109 mg/dL [facility] Potassium [Moles/Vol] 5.8 mmol/L High 3.5 - 5.2 meq/L [facility] Sodium [Moles/Vol] 136 mmol/L 135 - 145 meq/L [facility] Urea nitrogen [Mass/Vol] 21 mg/dL 8 - 23 mg/dL [facility] GFR, ESTIMATEDon 07-09-2024 GFR/1.73 sq M.predicted MDRD (S/P/Bld) [Vol rate/Area] 56 mL/min/{1.73_m2} Abnormal >60 [facility] Comment on above: Pediatric calculator link https://www.kidney.org/professionals/kdoqi/gfr_calculatorped [...] that affects renal tubular secretion. Performed at [facility] [address] [place], [place] [id number] Result Comment: Soniya atric calculator link https://www.kidney.org/professionals/kdoqi/gfr_calculatorped Effective Jan 25, 2022 These results are not intended for use in patients <18 years of age. eGFR results are calculated without a race factor using the 2021 CKD-EPI equation. Careful clinical correlation is recommended, particularly when comparing to results calculated using previous equations. The CKD-EPI equation is less accurate in patients with extremes of muscle mass, extra-renal metabolism of creatinine, excessive creatine ingestion, or following therapy that affects renal tubular secretion. Performed By: #### P OCGL #### [place] [address] GLUCOSE POCon 07-09-2024 Glucose [Mass/Vol] 211 mg/dL High 70-108 [facility] Comment on above: Performed at [facility] [address] [place] [address] Performed By: #### P OCGL #### [place] [address] Glucose [Mass/Vol] 212 mg/dL High 70-108 [facility] Comment on above: [place] [address] Performed By: #### P OCGL #### [place] [address] Glucose [Mass/Vol] 169 mg/dL High 70-108 [facility] Comment on above: Performed at [facility] [address] [place] [address] Performed By: #### P OCGL #### [address] [address] Glucose [Mass/Vol] 229 mg/dL High 70-108 [facility] Comment on above: Performed at [facility] [address] [address] Performed By: #### P OCGL #### [address] [address] Glucose [Mass/Vol] 203 mg/dL High 70-108 [facility] Comment on above: Performed at [facility] [address] [place] [address] Performed By: #### P OCGL #### [address] [address] HGB,HCTon 07-09-2024 Hematocrit (Bld) [Volume fraction] 36.7 % Low 37.0-47.0 [facility] Comment on above: Performed at [facility] [address] [place] [address] Performed By: #### P OCGL #### [facility] [address] [place] [address] 25917 Hemoglobin (Bld) [Mass/Vol] 11.9 g/dL Low 12.0-16.[address] [facility] Comment on above: Performed By: #### P OCGL #### [facility] [address] [place] [address] No Panel Informationon 07-09 Interpretation and review of laboratory results Abnormal [facility] POTASSIUMon 07-09-2024 Potassium [Moles/Vol] 4.7 mmol/L Normal 3.5-5.2 [facility] Comment on above: Performed By: #### K P #### [facility] [place] [place] [address] Potassiumon 07-09-2024 Potassium [Moles/Vol] 4.7 mmol/L 3.5 - 5.2 meq/L [facility] Comment on above: Performed at [facility] [address] [place] [address] GLUCOSE POCon 07-08-2024 Glucose [Mass/Vol] 266 mg/dL High 70-108 [facility] Comment on above: Performed at [facility] [address] [place] [address] Performed By: #### P OCGL #### [facility] [place] [place] [address] Glucose [Mass/Vol] 120 mg/dL High 70-108 [facility] Comment on above: Performed at [facility] [address] [place] [address] Performed By: #### P OCGL #### [facility] [place] [address] Glucose [Mass/Vol] 105 mg/dL Normal 70-108 [facility] Comment on above: Performed at [facility] [employer] [facility] [address] [place] [address] Performed By: #### P OCGL #### [facility] [place] [address] Glucose [Mass/Vol] 136 mg/dL High 70-[address] [facility] Comment on above: Performed at [facility] [employer] [facility] [address] [place] [address] Performed By: #### P OCGL #### [facility] [address] [place] [address] Glucose Auto test strip (Bld ) [Mass/Vol]on 07-08-2024 Interpretation and review of laboratory results Abnormal [facility] Interpretation and review of laboratory results Abnormal [facility] Interpretation and review of laboratory results Abnormal [facility] XR LUMBAR SPINE 1 VWon 07-08 [...] Boo Headley MD 07/08/[address] [facility] XR Lumbar spine Single viewo n 07-08-2024 1. Evidence of posterior fusion at L4-L5. Please refer to operative report for further details. This report has been created using voice recognition software. It may contain minor errors which are inherent in voice recognition technology. Electronically signed by Dr. Jerrod Betts [facility] Sivakumar Betts MD - 07/08/2024 PROCEDURE: [...] technology. Electronically signed by Dr. Jerrod Betts [facility] Radiology Study observation (narrative) [facility] Intraoperative appearance of the lumbar spine. This report has been created using voice recognition software. It may contain minor errors which are inherent in voice recognition technology. Electronically signed by Dr. Boo Headley [facility] MOBILE LATERAL LUMBA R SPINE: CLINICAL INFORMATION: surgery. L3-L5 decompression. L4-L5- fusion COMPARISON: No prior study. TECHNIQUE: A single lateral mobile view of the lumbar spine was obtained For localization purposes. FINDINGS: 2 spinal needles are present posteriorly directed at the L4 and L5 levels. [facility] Boo Headley MD - 07/08/2024 MOBILE LATERAL [...] technology. Electronically signed by Dr. Boo Headley [facility] Radiology Study observation (narrative) [facility] XR Lumbar spine Single viewO rdered By: Sivakumar Betts on 07-08-[address] [facility] Work Phone: XR Lumbar spine Single viewO rdered By: Boo Headley on 07-08-[address] [facility] Work Phone: ANION GAPon 07-07-2024 Anion gap [Moles/Vol] 14.0 mmol/L Normal 8.0-16.0 [facility] Comment on above: Result Comment: ANIO N GAP = Sodium -(Chloride + CO2) Performed By: #### B MP, EGFR1, CBCND, ANION #### [facility] [employer] [facility] [address] [place] [address] Anion [employer]apon 07-07-2024 Anion gap [Moles/Vol] 14 mmol/L 8.0 - 16.0 meq/L [facility] Comment on above: ANION GAP = Sodium - (Chloride + CO2) Performed at [facility] [address] [place] [address] BASIC METABOL PANELon 2024 CO2 [Moles/Vol] 21 mmol/L Low 22-29 [facility] Comment on above: Performed By: #### B MP, EGFR1, CBCND, ANION #### [facility] [address] [place] [address] Creatinine [Mass/Vol] 1.0 mg/dL High 0.5-0.9 [facility] Comment on above: Performed By: #### B MP, EGFR1, CBCND, ANION #### [facility] [address] [place] [address] Glucose [Mass/Vol] 172 mg/dL High 74-109 [facility] Comment on above: Performed By: #### B MP, EGFR1, CBCND, ANION #### [facility] [address] [place] [address] Urea nitrogen [Mass/Vol] 33 mg/dL High 8-23 [facility] Comment on above: Performed By: #### B MP, EGFR1, CBCND, ANION #### [facility] [address] [place] [address] Calcium [Mass/Vol] 9.2 mg/dL Normal 8.8-10.2 [facility] Comment on above: Performed By: #### B MP, EGFR1, CBCND, ANION #### [address] [address] Chloride [Moles/Vol] 103 mmol/L Normal 98-111 [facility] Comment on above: Performed By: #### B MP, EGFR1, CBCND, ANION #### [facility] [address] [place] [address] Potassium [Moles/Vol] 4.4 mmol/L Normal 3.5-5.2 [facility] Comment on above: Result Comment: Low level specimen hemolysis is present as indicated by the interference index on the Yam[employer]t analyzer. ??The reported K+ level may be falsely increased. If clinically warranted, recollection of the specimen is suggested. Performed By: #### B MP, EGFR1, CBCND, ANION #### [facility] [address] [place] [address] Sodium [Moles/Vol] 138 mmol/L Normal 135-145 [facility] Comment on above: Performed By: #### B MP, EGFR1, CBCND, ANION #### [facility] [address] [place] [address] Basic metabolic 2000 panelon 07-07-2024 Calcium [Mass/Vol] 9.2 mg/dL 8.8 - 10. 2 mg/dL [facility] Comment on above: Performed at [facility] [address] [place] [address] Chloride [Moles/Vol] 103 mmol/L 98 - 11 1 meq/L [facility] CO2 [Moles/Vol] 21 mmol/L Low 22 - 29 meq/L [facility] Creatinine [Mass/Vol] 1.0 mg/dL High 0.5 - 0.9 mg/dL [facility] Glucose [Mass/Vol] 172 mg/dL High 74 - 109 mg/dL [facility] Interpretation and review of laboratory results Abnormal [facility] Potassium [Moles/Vol] 4.4 mmol/L 3.5 - 5.2 meq/L [facility] Comment on above: Low level specimen h emolysis is present as indicated by the interference index on the [employer] analyzer. The reported K+ level may be falsely increased. If clinically warranted, recollection of the specimen is suggested. Sodium [Moles/Vol] 138 mmol/L 135 - 145 meq/L [facility] Urea nitrogen [Mass/Vol] 33 mg/dL High 8 - 23 mg/dL [facility] CBCon 07-07-2024 Erythrocyte distribution width (RBC) [Entitic vol] 40.3 fL 35.0 - 45.[address] [facility] Platelets (Bld) [#/Vol] 236 10*3/uL [facility] RBC (Bld) [#/Vol] 4.73 10*6/uL [facility] WBC (Bld) [#/Vol] 8.6 10*3/uL [facility] CBC NO DIFFERENTIALon 2024 Erythrocyte distribution width (RBC) [Ratio] 12.6 % Normal 11.5-14.5 [facility] [facility] Comment on above: Performed By: #### B MP, EGFR1, CBCND, ANION #### [place] [address] Hematocrit (Bld) [Volume fraction] 41.6 % Normal 37.0-47.0 [facility] Comment on above: Performed By: #### B MP, EGFR1, CBCND, ANION #### [place] [address] Hemoglobin (Bld) [Mass/Vol] 13.5 g/dL Normal 12.0-16.0 [facility] Comment on above: Performed By: #### B MP, EGFR1, CBCND, ANION #### [place] [address] MCH (RBC) [Entitic mass] 28.5 pg Normal 26.0-33.0 [facility] [employer] [employer] [facility] Comment on above: Performed By: #### B MP, EGFR1, CBCND, ANION #### [place] [address] MCHC (RBC) [Mass/Vol] 32.5 g/dL Normal 32.2-35.5 [facility] [employer] [facility] Comment on above: Performed By: #### B MP, EGFR1, CBCND, ANION #### [place] [address] MCV (RBC) [Entitic vol] 87.9 fL Normal 81.0-99.0 [facility] [employer] Comment on above: Performed By: #### B MP, EGFR1, CBCND, ANION #### [address] [address] PLATELET 236 thou/mm3 Normal 130-400 [facility] Comment on above: Performed By: #### B MP, EGFR1, CBCND, ANION #### [address] [address] Platelet mean volume (Bld) [Entitic vol] 9.6 fL Normal 9.4-12.4 [facility] [employer] [facility] Comment on above: Performed at [facility] [address] [place] [address] Performed By: #### B MP, EGFR1, CBCND, ANION #### [facility] [address] [place] [address] RBC 4.73 mill/mm3 Normal 4.20-5.40 [facility] Comment on above: Performed By: #### B MP, EGFR1, CBCND, ANION #### [facility] [address] [place] [address] RDW-SD 40.3 fL Normal 35.0-45.0 [facility] Comment on above: Performed By: #### B MP, EGFR1, CBCND, ANION #### [facility] [address] [place] [address] WBC 8.6 thou/mm3 Normal 4.8-10.8 [facility] Comment on above: Performed By: #### B MP, EGFR1, CBCND, ANION #### [facility] [address] [place] [address] GFR, ESTIMATEDon 07-07-2024 GFR/1.73 sq M.predicted MDRD (S/P/Bld) [Vol rate/Area] 62 mL/min/{1.73_m2} Normal >[address] [facility] Comment on above: Pediatric calculator link [...] that affects renal tubular secretion. Performed at [facility] [place] [place] [address] Result Comment: Pedi atric calculator link https://www.kidney.org/professionals/kdoqi/gfr_calculatorped [...] #### B MP, EGFR1, CBCND, ANION #### [address] [address] GLUCOSE POCon 07-07-2024 Glucose [Mass/Vol] 271 mg/dL High 70-108 [facility] Comment on above: Performed at [facility] [address] [place] [address] Performed By: #### P OCGL #### [place] [address] Glucose [Mass/Vol] 188 mg/dL High 70-108 [facility] Comment on above: Performed at [facility] [address] [place] [address] Performed By: #### P OCGL #### [place] [address] Glucose [Mass/Vol] 174 mg/dL High 70-108 [facility] Comment on above: Performed at [facility] [address] [place] [address] Performed By: #### P OCGL #### [address] [address] Glucose [Mass/Vol] 76 mg/dL Normal 70-108 [facility] Comment on above: Performed at [facility] [address] [place] [address] Performed By: #### P OCGL #### [place] [id number] Glomerular Filtration Rate, Estimatedon 07-07-2024 [employer] Glucose Auto test strip (Bld ) [Mass/Vol]on 07-07-2024 Interpretation and review of laboratory results Abnormal [facility] Interpretation and review of laboratory results Abnormal [email or web address] [facility] [employer] Interpretation and review of laboratory results Abnormal [facility] [employer] - [facility] Its [facility] Fl[employer] [facility] No Panel Informationon 07-07 [facility] XR CHEST (2 VW)on 07-07-2024 XR CHEST [...] Kj Epps MD 07/07/[address] [facility] XR Chest 2 Viewson Impression: No acute cardiopulmonary disease. This document has been electronically signed by: Kj Epps MD on 07/07/2024 02:22 AM [facility] Chest X-ray: 2 views . Indication: Pulmonary congestion. Comparison: None Findings: The lungs are well aerated. No focal consolidation, or pleural effusion. The cardiac silhouette is normal in size. Bony thorax is grossly intact. Bilateral shoulder arthroplasty. External metallic density versus surgical hardware projects on the lower cervical spine. [facility] Kj Epps MD - 025 Chest [...] Kj Epps MD on 07/07/2024 02:[address] [facility] Radiology Study observation (narrative) [facility] XR Chest 2 ViewsOrdered By: Kj Epps on 07-07-[address] [facility] ANION GAPon 07-06-2024 Anion gap [Moles/Vol] 14.0 mmol/L Normal 8.0-16.0 [facility] Comment on above: Result Comment: ANIO N GAP = Sodium -(Chloride + CO2) Performed By: #### P OCGL #### [facility] [employer] [address] [place] [address] APTTon 07-06-2024 aPTT Coag (Bld) [Time] 29.5 s Normal 22.0-38.0 [facility] Comment on above: Result Comment: Ther apeutic Heparin Reference Range= 60-95 seconds (corresponds to 0.3 to 0.7 u/mL Anti-Xa factor activity) Performed By: #### P OCGL #### [address] [address] Anion Gapon 07-06-2024 Anion gap [Moles/Vol] 14 mmol/L 8.0 - 16.0 meq/L [facility] Comment on above: ANION GAP = Sodium - (Chloride + CO2) Performed at [facility] [address] [place] [address] CBC WITH DIFFERENTIALon 06-23 ABS BASOPHILS 0.0 thou/mm3 Normal 0.0-0.1 [facility] Comment on above: Performed By: #### P OCGL #### [address] [address] ABS EOSINOPHILS 0.0 thou/mm3 Normal 0.0-0.4 [facility] Comment on above: Performed By: #### P OCGL #### [address] [address] ABS IMMATURE GRANS (IG) 0.05 thou/mm3 Normal 0.00-0.07 [facility] Comment on above: Performed By: #### P OCGL #### [address] [address] ABS LYMPHOCYTES 2.8 thou/mm3 Normal 1.0-4.8 [facility] Comment on above: Performed By: #### P OCGL #### [facility] [address] [place] [address] ABS MONOCYTES 0.8 thou/mm3 Normal 0.4-1.3 [facility] Comment on above: Performed By: #### P OCGL #### [address] [address] ABS NEUTROPHILS 7.9 thou/mm3 High 1.8-7.7 [facility] Comment on above: Performed By: #### P OCGL #### [address] [address] Basophils/100 WBC (Bld) 0.2 % Normal [facility] Comment on above: Performed By: #### P OCGL #### [address] [address] Eosinophils/100 WBC (Bld) 0.3 % Normal [facility] Comment on above: Performed By: #### P OCGL #### [address] [address] Erythrocyte distribution width (RBC) [Ratio] 12.5 % Normal 11.5-14.5 [facility] Comment on above: Performed By: #### P OCGL #### [address] [address] Hematocrit (Bld) [Volume fraction] 42.6 % Normal 37.0-47.0 [facility] Comment on above: Performed By: #### P OCGL #### [address] [address] Hemoglobin (Bld) [Mass/Vol] 13.8 g/dL Normal 12.0-16.0 [facility] Comment on above: Performed By: #### P OCGL #### [address] [address] IMMATURE GRANS (IG) 0.4 % Normal [facility] Comment on above: Performed By: #### P OCGL #### [address] [address] Lymphocytes/100 WBC (Bld) 24.0 % Normal [facility] Comment on above: Performed By: #### P OCGL #### [address] [address] MCH (RBC) [Entitic mass] 28.6 pg Normal 26.0-33.0 [facility] Comment on above: Performed By: #### P OCGL #### [address] [address] MCHC (RBC) [Mass/Vol] 32.4 g/dL Normal 32.2-35.5 [facility] Comment on above: Performed By: #### P OCGL #### [facility] [employer] [address] [address] MCV (RBC) [Entitic vol] 88.2 fL Normal 81.0-99.[address] [facility] Comment on above: Performed By: #### P OCGL #### [address] [address] Monocytes/100 WBC (Bld) 6.8 % Normal [facility] Comment on above: Performed By: #### P OCGL #### [employer] [facility] [address] [place] [address] Neutrophils/100 WBC (Bld) 68.3 % Normal [facility] Comment on above: Performed By: #### P OCGL #### [address] [address] NRBC 0 /[address] [facility] Comment on above: Performed By: #### P OCGL #### [address] [address] PLATELET 274 thou/mm3 Normal 130-400 [facility] Comment on above: Performed By: #### P OCGL #### [address] [address] Platelet mean volume (Bld) [Entitic vol] 9.7 fL Normal 9.4-12.[address] [facility] Comment on above: Performed By: #### P OCGL #### [facility] [employer] [address] [address] RBC 4.83 mill/mm3 Normal 4.20-5.40 [facility] Comment on above: Performed By: #### P OCGL #### [employer] [address] [place] [address] RDW-SD 39.9 fL Normal 35.0-45.0 [facility] Comment on above: Performed By: #### P OCGL #### [employer] [facility] [address] [place] [address] WBC 11.6 thou/mm3 High 4.8-10.8 [facility] Comment on above: Performed By: #### P OCGL #### [employer] [address] [place] [address] CBC with Auto Differentialon 07-06-2024 Basophils (Bld) [...] [facility] Comment on above: Performed at [facility] [address] [place] [address] Platelets (Bld) [#/Vol] 274 10*3/uL [facility] RBC (Bld) [#/Vol] 4.83 10*6/uL [facility] WBC (Bld) [#/Vol] 11.6 10*3/uL High [facility] COMP. METABOLIC PANELon 06-23 Albumin [Mass/Vol] 4.3 g/dL Normal 3.4-4.9 [facility] Comment on above: Performed By: #### P OCGL #### [facility] [employer] [address] [place] [address] ALP [Catalytic activity/Vol] 65 U/L Normal 35-104 [facility] Comment on above: Performed By: #### P OCGL #### [facility] [employer] [address] [place] [address] ALT [Catalytic activity/Vol] 24 U/L Normal 10-35 [facility] Comment on above: Performed By: #### P OCGL #### [facility] [employer] [address] [place] [address] AST [Catalytic activity/Vol] 23 U/L Normal 10-35 [facility] Comment on above: Performed By: #### P OCGL #### [facility] [address] [place] [address] Bilirubin [Mass/Vol] 0.4 mg/dL Normal 0.3-1.2 [facility] Comment on above: Performed By: #### P OCGL #### [facility] [address] [place] [address] Calcium [Mass/Vol] 9.6 mg/dL Normal 8.8-10.2 [facility] Comment on above: Performed By: #### P OCGL #### [facility] [address] [place] [address] CO2 [Moles/Vol] 26 mmol/L Normal 22-29 [facility] Comment on above: Performed By: #### P OCGL #### [facility] [address] [place] [address] Creatinine [Mass/Vol] 1.3 mg/dL High 0.5-0.9 [facility] Comment on above: Performed By: #### P OCGL #### [facility] [address] [place] [address] Glucose [Mass/Vol] 259 mg/dL High 74-109 [facility] Comment on above: Performed By: #### P OCGL #### [facility] [address] [place] [address] Protein [Mass/Vol] 7.2 g/dL Normal 6.4-8.3 [facility] Comment on above: Performed By: #### P OCGL #### [facility] [address] [place] [address] Urea nitrogen [Mass/Vol] 43 mg/dL High 8-23 [facility] Comment on above: Performed By: #### P OCGL #### [facility] [address] [place] [address] Chloride [Moles/Vol] 96 mmol/L Low 98-111 [facility] Comment on above: Performed By: #### P OCGL #### [facility] [address] [place] [address] POTASSIUM WITH REFLEX MG 5.0 meq/L Normal 3.5-5.2 [facility] Comment on above: Result Comment: Low level specimen hemolysis is present as indicated by the interference index on the Yamilet analyzer. ??The reported K+ level may be falsely increased. If clinically warranted, recollection of the specimen is suggested. Performed By: #### P OCGL #### [facility] [address] [place] [address] Sodium [Moles/Vol] 136 mmol/L Normal 135-145 [facility] Comment on above: Performed By: #### P OCGL #### [address] [address] Comprehensive metabolic 2000 panelon 07-06-2024 Albumin BCG dye [Mass/Vol] 4.3 g/dL 3.4 - 4.9 g/dL [facility] ALP [Catalytic activity/Vol] 65 U/L 35 - 104 U/L [facility] ALT No additional P-5'-P [Catalytic activity/Vol] 24 U/L 10 - 35 U/L [facility] Comment on above: Performed at [facility] [address] [place] [address] AST [Catalytic activity/Vol] 23 U/L 10 - 35 U/L [facility] Bilirubin [Mass/Vol] 0.4 mg/dL 0.3 - 1 .2 mg/dL [facility] Calcium [Mass/Vol] 9.6 mg/dL 8.8 - 10. 2 mg/dL [facility] Chloride [Moles/Vol] 96 mmol/L Low 98 - 11 1 meq/L [facility] CO2 [Moles/Vol] 26 mmol/L 22 - 29 meq/L [facility] Creatinine [Mass/Vol] 1.3 mg/dL High 0.5 - 0.9 mg/dL [facility] Glucose [Mass/Vol] 259 mg/dL High 74 - 109 mg/dL [facility] Potassium [Moles/Vol] 5.0 mmol/L 3.5 - 5.2 meq/L [facility] Comment on above: Low level specimen h emolysis is present as indicated by the interference index on the Yamilet analyzer. The reported K+ level may be falsely increased. If clinically warranted, recollection of the specimen is suggested. Protein [Mass/Vol] 7.2 g/dL 6.4 - 8.3 g/dL [employer] Sodium [Moles/Vol] 136 mmol/L 135 - 145 meq/L [employer] Urea nitrogen [Mass/Vol] 43 mg/dL High 8 - 23 mg/dL [employer] EKG 12 leadOrdered By: Kp Rodriges on 07-06-2024 Atrial Rate 68 BPM [employer] Work Phone: P Chama 58 degrees [employer] Work Phone: P-R Interval 146 ms [employer] Work Phone: Q-T Interval 422 ms [employer] Work Phone: QRS Duration 82 ms [employer] Work Phone: QTc Calculation (Bazett) 448 ms [employer] Work Phone: R Chama 67 degrees [employer] Work Phone: T Chama 66 degrees [employer] Work Phone: Ventricular Rate 68 BPM [employer] Work Phone: [employer] Work Phone: EKG 12 leadon 07-06-2024 Normal sinus rhythm Possible Left atrial enlargement ST & T wave abnormality, consider anterior ischemia Abnormal ECG No previous ECGs available Clinical correlation is indicated Confirmed by Kp Rodriges ([id number]) on 07/06/2024 11:10:52 PM WCVT STR MUSE Kp Rodriges MD - 07/06/2024 Normal sinus rhythm Possible Left atrial enlargement ST & T wave abnormality, consider anterior ischemia Abnormal ECG No previous ECGs available Clinical correlation is indicated Confirmed by Kp Rodriges ([id number]) on 07/06/2024 11:10:52 PM [facility] [employer] EKG 12-LEADon 07-06-2024 EKG 12-LEAD 68 68 146 82 [phone] Normal sinus rhythm Possible Left atrial enlargement ST & T wave abnormality, consider anterior ischemia Abnormal ECG No previous ECGs available Clinical correlation is indicated Confirmed by Kp Rodriges ([id number]) on 07/06/2024 11:10:52 PM [email or web address]?Pa [id number]&Date= 06-07-2024&Time=20%3a11 %3a37%3a00&TestType=ECG &Site=3&OutputType=PDF& Ext=PDF Normal [facility] GFR, ESTIMATEDon 07-06-2024 GFR/1.73 sq M.predicted MDRD (S/P/Bld) [Vol rate/Area] 46 mL/min/{1.73_m2} Abnormal >60 [facility] Comment on above: Pediatric calculator link [...] that affects renal tubular secretion. [place] [address] Result Comment: Pedi atric calculator link [email or web address] [...] secretion. Performed By: #### P OCGL #### [employer] [address] [place] [address] GLUCOSE POCon 07-06-2024 Glucose [Mass/Vol] 280 mg/dL High 70-[address] [facility] Comment on above: Performed at [facility] [employer] [facility] [address] [place] [address] Performed By: #### P OCGL #### [facility] [employer] [address] [place], [place] [id number] Glucose Auto test strip (Bld ) [Mass/Vol]on 07-06-2024 Interpretation and review of laboratory results Abnormal [facility] INR Coag (PPP) [Relative jackie e]on 07-06-[address] [facility] No Panel Informationon 07-06 Interpretation and review of laboratory results Abnormal [facility] PROTHOMBIN TIMEon 07-06-2024 INR Coag (Bld) [Relative time] 1.02 {INR} Normal 0.85-1.13 [facility] Comment on above: Result Comment: ---- -----INDICATION INR Reference Range DVT, PE, AF, AMI, tissue heart valve 2.0 to 3.0 Mechanical prosthetic valves 2.5 to 3.5 Performed By: #### P OCGL #### [employer] [address] [place] [address] Protime-INRon 07-06-2024 INR Coag (PPP) [Relative time] 1.02 {INR} 0.85 - 1.13 [facility] [employer] Comment on above: ---------INDICATION- INR Reference Range DVT, PE, AF, AMI, tissue heart valve 2.0 to 3.0 Mechanical prosthetic valves 2.5 to 3.5 [place] [address] aPTT Coag (Bld) [Time]on aPTT Coag (PPP) [Time] 29.5 s [facility] [employer] Comment on above: Therapeutic Heparin Reference Range= 60-95 seconds (corresponds to 0.3 to 0.7 u/mL Anti-Xa factor activity) Performed at [facility] [address] [place] [address] Health Estimated glomerular filtrat ion rate (GFR) non- Americanon 06-27-2024 GFR/1.73 sq M.predicted among non-blacks MDRD (S/P/Bld) [Vol rate/Area] Estimated glomerular filtration rate (GFR) non- Low >=60 mL/min/1.73m 2 [facility] - Chemistry and C hemistry - challengeon 06-27-2024 Calcium [Mass/Vol] 9.8 mg/dL 8.5-10.1 [facility] Chloride [Moles/Vol] 101 mmol/L 98-107 [facility] CO2 [Moles/Vol] 28.6 mmol/L 21.0-32.0 [facility] Creatinine [Mass/Vol] 1.41 mg/dL High 0.55-1.02 [facility] GFR/1.73 sq M.predicted MDRD (S/P/Bld) [Vol rate/Area] 45 mL/min/{1.73_m2} Low >=60 mL/min/1.73m 2 [facility] Glucose [Mass/Vol] 66 mg/dL Low 74-106 [facility] Potassium [Moles/Vol] 5.1 mmol/L 3.5-5.1 [facility] Sodium [Moles/Vol] 139 mmol/L 136-145 [facility] Urea nitrogen [Mass/Vol] 29.0 mg/dL High 7.0-18.0 [facility] Urea nitrogen/Creatinine [Mass ratio] 20.6 mg/mg [facility] Bilirubin Ql (U) LARGE Abnormal NEGATIVE [facility] Glucose (U) [Mass/Vol] Negative NEGATIVE [facility] Ketones Ql (U) TRACE mg/dL Abnormal NEGATIVE [facility] pH (U) 5.5 [pH] 5.0-9.0 [facility] Specific gravity (U) [Rel density] 1.025 1.005-1.025 [facility] Urobilinogen Qn (U) 0.2 {Nela'U}/dL 0.2-1.0 [facility] - Specimen inform ationon 06-27-2024 Appearance (U) CLEAR CLEAR [facility] Color (U) YELLOW YELLOW [facility] - Urinalysison Leukocyte esterase Test strip Ql (U) Negative NEGATIVE [facility] Nitrite Ql (U) Negative NEGATIVE [facility] Protein Ql (U) Negative NEG/TRACE [facility] No Panel Informationon 06-27 Urine Microscopic Review NO [facility] Urine Occult Blood Negative NEGATIVE [facility] Serum or plasma anion gap de terminationon 06-27-2024 Anion gap [Moles/Vol] Serum or plasma anion gap determination [facility] No Panel Informationon 06-01 Miscellaneous Test COMMENT . [facility] Comment on above: Test Ordered: [id number] Aerobic Cult, Extended IncubAerobic Cult, Extended Incub Note: CB Final report Reference Range: .Result 1 Comment CB Reference Range: .Staphylococcus epidermidisRecovered from broth only.Based on resistance to oxacillin this isolate would beresistant to all currently available beta-lactamantimicrobial agents, with the exception of the newercephalosporins with anti-MRSA activity, such as CeftarolineResult 2 Note: CB Not applicable Reference Range: .Antimicrobial Susceptibility Comment Reference Range: . S = Susceptible; I = Intermediate; R = Resistant P = Positive; N = Negative MICS are expressed in micrograms per mL Antibiotic RSLT#1 RSLT#2 RSLT#3 RSLT#4Ciprofloxacin SErythromycin RGentamicin SLevofloxacin SLinezolid SOxacillin RPenicillin RRifampin STetracycline STrimethoprim/Sulfa SVancomycin SPerformed at: - [facility] [address] [id number] Director: Noam Haskins PhD, Phone: [phone] Basophils Auto (Bld) [#/Vol] on 05-31-2024 Basophils (Bld) [#/Vol] Automated basophil count 0.0-0.1 [facility] Basophils/100 WBC Auto (Bld) on 05-31-2024 Basophils/100 WBC (Bld) Automated basophil % 0.2-2.0 [facility] Eosinophils/100 WBC Auto (Bl d)on 05-31-2024 Eosinophils/100 WBC (Bld) Automated eosinophil % 0.9-7.0 [facility] Erythrocyte distribution wid th Auto (RBC) [Ratio]on 05-31-2024 Erythrocyte distribution width (RBC) [Ratio] Erythrocyte distribution width [Ratio] by Automated count 11.0-15.0 [facility] Hematocrit Auto (Bld) [Volum e fraction]on 05-31-2024 Hematocrit (Bld) [Volume fraction] Hematocrit [Volume Fraction] of Blood by Automated count 36.0-48.0 [facility] Hemoglobin [Mass/volume] in Bloodon 05-31-2024 Hemoglobin (Bld) [Mass/Vol] Hemoglobin [Mass/volume] in Blood 12.0-16.0 [facility] - Hematology and Cell countson 05-31-2024 ESR (Bld) [Velocity] 7 mm/h <=30 [facility] Immature granulocytes/100 WBC (Bld) 0.2 % 0.0-0.5 [facility] Leukocytes [#/volume] correc chip for nucleated erythrocytes in Blood by Automated counon 05-31-2024 WBC corrected for nucl RBC Auto (Bld) [#/Vol] Leukocytes [#/volume] corrected for nucleated erythrocytes in Blood by Automated coun 4.0-11.0 [facility] Lymphocytes Auto (Bld) [#/Vo l]on 05-31-2024 Lymphocytes (Bld) [#/Vol] Lymphocytes [#/volume] in Blood by Automated count 1.2-3.8 [facility] Lymphocytes/100 WBC Auto (Bl d)on 05-31-2024 Lymphocytes/100 WBC (Bld) Lymphocytes/100 leukocytes in Blood by Automated count 20.5-60.0 [facility] MCH Auto (RBC) [Entitic mass ]on 05-31-2024 MCH (RBC) [Entitic mass] MCH [Entitic mass] by Automated count 26.7-34.0 [facility] MCHC Auto (RBC) [Mass/Vol]on 05-31-2024 MCHC (RBC) [Mass/Vol] MCHC [Mass/volume] by Automated count 29.9-35.2 [facility] MCV Auto (RBC) [Entitic vol] on 05-31-2024 MCV (RBC) [Entitic vol] MCV [Entitic volume] by Automated count 81.0-99.0 [facility] Monocytes Auto (Bld) [#/Vol] on 05-31-2024 Monocytes (Bld) [#/Vol] Automated blood monocyte count 0.3-0.8 [facility] Monocytes/100 WBC Auto (Bld) on 05-31-2024 Monocytes/100 WBC (Bld) Automated monocyte % 1.7-12.0 [facility] Neutrophils Auto (Bld) [#/Vo l]on 05-31-2024 Neutrophils (Bld) [#/Vol] Neutrophils [#/volume] in Blood by Automated count 1.4-6.5 [facility] Neutrophils/100 WBC Auto (Bl d)on 05-31-2024 Neutrophils/100 WBC (Bld) Automated neutrophil % 43.0-75.0 [facility] No Panel Informationon 05-31 C-Reactive Protein, Quantitative <0.50 mg/dL <=0.50 [facility] Eosinophils # (Auto) 0.1 10 3/uL 0.0-0.7 [facility] Immature Granulocyte # (Auto) 0.01 10 3/uL 0.00-0.03 [facility] Platelet mean volume Auto (B ld) [Entitic vol]on 05-31-2024 Platelet mean volume (Bld) [Entitic vol] Platelet mean volume [Entitic volume] in Blood by Automated count Low 9.5-13.5 [facility] Platelets Auto (Bld) [#/Vol] on 05-31-2024 Platelets (Bld) [#/Vol] Platelets [#/volume] in Blood by Automated count 150-450 [facility] RBC Auto (Bld) [#/Vol]on RBC (Bld) [#/Vol] Erythrocytes [#/volu me] in Blood by Automated count 4.20-5.40 [facility] Basophils Auto (Bld) [#/Vol] on 12-27-2023 Basophils (Bld) [#/Vol] 0.1 10 3/uL 0.0-0.1 [facility] Basophils/100 WBC Auto (Bld) on 12-27-2023 Basophils/100 WBC (Bld) 1.0 % 0.2-2.0 [facility] Cholesterol in LDL Calc [Mas s/Vol]on 12-27-2023 Cholesterol in LDL [Mass/Vol] 63.0 mg/dL [facility] Comment on above: <100 mg/dl [id number] 0-129 mg/dl NEAR OR ABOVE [id number] mg/dl BORDERLINE [id number] mg/dl HIGH>190 mg/dl VERY HIGH Cholesterol in VLDL Calc [Ma ss/Vol]on 12-27-2023 Cholesterol in VLDL [Mass/Vol] 45.8 mg/dL [facility] Eosinophils/100 WBC Auto (Bl d)on 12-27-2023 Eosinophils/100 WBC (Bld) 8.3 % High 0.9-7.0 [facility] Erythrocyte distribution wid th Auto (RBC) [Ratio]on 12-27-2023 Erythrocyte distribution width (RBC) [Ratio] 11.9 % 11.0-15.0 [facility] Estimated glomerular filtrat ion rate (GFR) non- Americanon 12-27-2023 GFR/1.73 sq M.predicted among non-blacks MDRD (S/P/Bld) [Vol rate/Area] 47 mL/min/{1.73_m2} Low >=60 [facility] Globulin Calc (S) [Mass/Vol] on 12-27-2023 Globulin (S) [Mass/Vol] 3.2 g/dL [facility] Glucose mean value [Mass/vol ume] in Blood Estimated from glycated hemoglobinon 12-27-2023 Average glucose Estimated from glycated hemoglobin (Bld) [Mass/Vol] 143 mg/dL [facility] Hematocrit Auto (Bld) [Volum e fraction]on 12-27-2023 Hematocrit (Bld) [Volume fraction] 39.7 % 36.0-48.0 [facility] Hemoglobin [Mass/volume] in Bloodon 12-27-2023 Hemoglobin (Bld) [Mass/Vol] 12.9 g/dL 12.0-16.0 [facility] - Chemistry and C hemistry - challengeon 12-27-2023 Albumin [Mass/Vol] 3.7 g/dL 3.4-5.0 [facility] ALP [Catalytic activity/Vol] 61 U/L 46-116 [facility] ALT [Catalytic activity/Vol] 36 U/L 14-59 [facility] AST [Catalytic activity/Vol] 24 U/L 15-37 [facility] Bilirubin [Mass/Vol] 0.6 mg/dL 0.2-1.0 [facility] Calcium [Mass/Vol] 9.2 mg/dL 8.5-10.1 [facility] Chloride [Moles/Vol] 101 mmol/L 98-107 [facility] Cholesterol [Mass/Vol] 146 mg/dL <=200 [facility] Cholesterol in HDL [Mass/Vol] 38 mg/dL Low 40-60 [facility] Comment on above: > or =60 mg/dl - LOW CARDIOVASCULAR RISK<40 mg/dl - HIGH CARDIOVASCULAR RISK CO2 [Moles/Vol] 26.8 mmol/L 21.0-32.0 [facility] Creatinine [Mass/Vol] 1.17 mg/dL High 0.55-1.02 [facility] GFR/1.73 sq M.predicted MDRD (S/P/Bld) [Vol rate/Area] 56 mL/min/{1.73_m2} Low >=60 [facility] Glucose [Mass/Vol] 138 mg/dL High 74-106 [facility] Potassium [Moles/Vol] 4.5 mmol/L 3.5-5.1 [facility] Protein [Mass/Vol] 6.9 g/dL 6.4-8.2 [facility] Sodium [Moles/Vol] 138 mmol/L 136-145 [facility] Triglyceride [Mass/Vol] 229 mg/dL High <=150 [facility] TSH Qn 0.834 m[IU]/L 0.358-3.740 [facility] Urea nitrogen [Mass/Vol] 23.0 mg/dL High 7.0-18.0 [facility] Urea nitrogen/Creatinine [Mass ratio] 19.7 mg/mg [facility] - Hematology and Cell countson 12-27-2023 HbA1c (Bld) [Mass fraction] 6.6 % High 4.5-6.2 [facility] Comment on above: ADA RECOMMENDED LIMI T 4.0 - 6.0ADA THERAPEUTIC TARGET < 7.0ACTION SUGGESTED> 7.0 Immature granulocytes/100 WBC (Bld) 0.4 % 0.0-0.5 [facility] Leukocytes [#/volume] correc chip for nucleated erythrocytes in Blood by Automated counon 12-27-2023 WBC corrected for nucl RBC Auto (Bld) [#/Vol] 5.2 10 3/uL 4.0-11.0 [facility] Lymphocytes Auto (Bld) [#/Vo l]on 12-27-2023 Lymphocytes (Bld) [#/Vol] 2.2 10 3/uL 1.2-3.8 [facility] Lymphocytes/100 WBC Auto (Bl d)on 12-27-2023 Lymphocytes/100 WBC (Bld) 42.1 % 20.5-60.0 [facility] MCH Auto (RBC) [Entitic mass ]on 12-27-2023 MCH (RBC) [Entitic mass] 28.5 pg 26.7-34.0 [facility] MCHC Auto (RBC) [Mass/Vol]on 12-27-2023 MCHC (RBC) [Mass/Vol] 32.5 g/dL 29.9-35.2 [facility] MCV Auto (RBC) [Entitic vol] on 12-27-2023 MCV (RBC) [Entitic vol] 87.8 fL 81.0-99.0 [facility] Monocytes Auto (Bld) [#/Vol] on 12-27-2023 Monocytes (Bld) [#/Vol] 0.3 10 3/uL 0.3-0.8 [facility] Monocytes/100 WBC Auto (Bld) on 12-27-2023 Monocytes/100 WBC (Bld) 6.4 % 1.7-12.0 [facility] Neutrophils Auto (Bld) [#/Vo l]on 12-27-2023 Neutrophils (Bld) [#/Vol] 2.2 10 3/uL 1.4-6.5 [facility] Neutrophils/100 WBC Auto (Bl d)on 12-27-2023 Neutrophils/100 WBC (Bld) 41.8 % Low 43.0-75.0 [facility] No Panel Informationon 12-26 Eosinophils # (Auto) 0.4 10 3/uL 0.0-0.7 [facility] Immature Granulocyte # (Auto) 0.02 10 3/uL 0.00-0.03 [facility] Platelet mean volume Auto (B ld) [Entitic vol]on 12-27-2023 Platelet mean volume (Bld) [Entitic vol] 9.6 fL 9.5-13.5 [facility] Platelets Auto (Bld) [#/Vol] on 12-27-2023 Platelets (Bld) [#/Vol] 190 10 3/uL 150-450 [facility] RBC Auto (Bld) [#/Vol]on RBC (Bld) [#/Vol] 4.52 10 6/uL 4.20-5.40 [facility] Serum or plasma albumin/glob ulin mass ratioon 12-27-2023 Albumin/Globulin [Mass ratio] 1.2 {ratio} [facility] Serum or plasma anion gap de terminationon 12-27-2023 Anion gap [Moles/Vol] 14.7 mmol/L [facility] Serum or plasma total choles terol/high density lipoprotein (HDL) cholesterol mass desiree 12-27-2023 Cholesterol.total/Ch olesterol in HDL [Mass ratio] 3.8 {ratio} [facility] Comment on above: 3.3 - 4.4 [...] BERNY QUISPE Date: 2022-08-24 07:19 Normal [facility] [place] [facility] CBC AUTO DIFFon 03-30-2022 BASO # 0.0 103/ul Normal 0.0-0.1 [facility] Comment on above: Performed By: #### C BC #### [facility] [place] [facility] [address] [address] [address] Rc Foster Basophils/100 WBC (Bld) 0.4 % Normal 0.2-2.0 [facility] Comment on above: Performed By: #### C BC #### [facility] [place] [facility] [address] [place] [address] Dr. Rc Foster EO # 0.3 103/ul Normal 0.0-0.7 [facility] [place] [facility] Comment on above: Performed By: #### C BC #### [facility] [place] [facility] [address] [address] [address] Rc Foster Eosinophils/100 WBC (Bld) 4.9 % Normal 0.9-7.0 [facility] [place] [facility] Comment on above: Performed By: #### C BC #### [facility] [place] [facility] [address] [place] [address] Dr. Rc Fotser Erythrocyte distribution width (RBC) [Ratio] 12.2 % Normal 11.0-15.0 [facility] Comment on above: Performed By: #### C BC #### [facility] [place] [facility] [address] [place] [address] Dr. Rc Foster Hematocrit (Bld) [Volume fraction] 39.8 % Normal 36.0-48.0 [facility] Comment on above: Performed By: #### C BC #### [facility] [place] [facility] [address] [place] [address] Dr. Rc Foster Hemoglobin (Bld) [Mass/Vol] 13.1 g/dL Normal 12.0-16.0 [facility] Comment on above: Performed By: #### C BC #### [facility] [place] [facility] [address] [place] [address] Dr. Rc Foster IG # 0.02 10e3/ul Normal 0.00-0.03 [facility] Comment on above: Performed By: #### C BC #### [facility] [place] [facility] [address] [place] [address] Dr. Rc Foster IG % 0.4 % Normal 0.0-0.5 [facility] Comment on above: Performed By: #### C BC #### [facility] [place] [facility] [address] [place] [address] Dr. Rc Foster LYMPH # 2.1 103/ul Normal 1.2-3.8 [facility] Comment on above: Performed By: #### C BC #### [facility] [place] [facility] [address] [place] [address] Dr. Rc Foster Lymphocytes/100 WBC (Bld) 37.1 % Normal 20.5-60.0 [facility] Comment on above: Performed By: #### C BC #### [facility] [place] [facility] [address] [place] [address] Dr. Rc Foster MANUAL DIFF REQ NO Normal [facility] Comment on above: Performed By: #### C BC #### [facility] [place] [facility] [address] [place] [address] Dr. Rc Foster MCH (RBC) [Entitic mass] 28.7 pg Normal 26.7-34.0 [facility] Comment on above: Performed By: #### C BC #### [facility] [place] [facility] [address] [place] [address] Dr. Rc Foster MCHC (RBC) [Mass/Vol] 32.9 g/dL Normal 29.9-35.2 [facility] [place] [facility] Comment on above: Performed By: #### C BC #### [facility] [place] [facility] [address] [address] [address] Rc Foster MCV (RBC) [Entitic vol] 87.1 fL Normal 81.0-99.0 [facility] [place] [facility] Comment on above: Performed By: #### C BC #### [facility] [place] [facility] [address] [address] [address] Rc Foster MONO # 0.4 103/ul Normal 0.3-0.8 [facility] [place] [facility] Comment on above: Performed By: #### C BC #### [facility] [place] [facility] [address] [place] [address] Dr. Rc Foster Monocytes/100 WBC (Bld) 6.7 % Normal 1.7-12.0 [facility] [place] [facility] Comment on above: Performed By: #### C BC #### [facility] [place] [facility] [address] [place] [address] Dr. Rc Foster NEUT # 2.9 103/ul Normal 1.4-6.5 [facility] [place] [facility] Comment on above: Performed By: #### C BC #### [facility] [place] [facility] [address] [place] [address] Dr. Rc Foster Neutrophils/100 WBC (Bld) 50.5 % Normal 43.0-75.0 [facility] [place] [facility] Comment on above: Performed By: #### C BC #### [facility] [place] [facility] [address] [place] [address] Dr. Rc Foster Platelet mean volume (Bld) [Entitic vol] 9.7 fL Normal 9.5-13.5 [facility] [place] [facility] Comment on above: Performed By: #### C BC #### [facility] [place] [facility] [address] [place] [address] Dr. Rc Foster PLT 189 103/ul Normal 150-450 [facility] [place] [facility] Comment on above: Performed By: #### C BC #### [facility] [place] [facility] [address] [place] [address] Dr. Rc Foster RBC 4.57 106/ul Normal 4.20-5.40 [facility] Comment on above: Performed By: #### C BC #### [facility] [place] [facility] [address] [address] [address] Rc Foster WBC 5.7 103/ul Normal 4.0-11.0 [facility] Comment on above: Performed By: #### C BC #### [facility] [place] [facility] [address] [address] [address] Rc Foster GLYCOHEMOGLOBIN A1Con 2021 ADA RECOMMENDATION SEE BELOW Normal [facility] Comment on above: Result Comment: ADA RECOMMENDED LIMIT 4.0 - 6.0 ADA THERAPEUTIC TARGET < 7.0 ACTION SUGGESTED > 7.0 Performed By: #### A 1C #### [facility] [place] [facility] [address] [place] [address] Dr. Rc Foster Glucose [Mass/Vol] 143 mg/dL Normal [facility] Comment on above: Performed By: #### A 1C #### [facility] [place] [facility] [address] [place] [address] Dr. Rc Foster HbA1c (Bld) [Mass fraction] 6.6 % Critically high 4.5-6.2 [facility] Comment on above: Performed By: #### A 1C #### [facility] [place] [facility] [address] [place] [address] Dr. Rc Foster LIPID PROFILEon 03-30-2022 CHOL-HDL RATIO NORM SEE BELOW Normal [facility] Comment on above: Result Comment: 3.3 - 4.4 LOW RISK 4.4 - 7.1 AVERAGE RISK 7.1 - 11.0 MODERATE RISK >11.0 HIGH RISK Performed By: #### T SH, CMP, LIPID ####[facility] [place] [facility] [address] [address]Dr. Rc Foster Cholesterol [Mass/Vol] 184 mg/dL Normal <=200 [facility] Comment on above: Performed By: #### T SH, CMP, LIPID ####[facility] [place] [facility] [address] [address]Dr. Rc Foster Cholesterol in HDL [Mass/Vol] 42 mg/dL Normal 40-60 [facility] Comment on above: Performed By: #### T SH, CMP, LIPID ####[facility] [place] [facility] [address] [id number]. Rc Foster Cholesterol in LDL [Mass/Vol] 87.0 mg/dL Normal [facility] Comment on above: Performed By: #### T SH, CMP, LIPID ####[facility] [place] [facility] [address] [id number]. Rc Foster Cholesterol.total/Ch olesterol in HDL [Mass ratio] 4.4 {ratio} Normal [facility] [place] [facility] Comment on above: Performed By: #### T SH, CMP, LIPID ####[facility] [place] [facility] [address] [id number]. Rc Foster HDL NORMAL > or = 60 mg/dl - LO W CARDIOVASCULAR RISK <40 mg/dl - HIGH CARDIOVASCULAR RISK Normal [facility] [place] [facility] Comment on above: Performed By: #### T SH, CMP, LIPID ####[facility] [place] [facility] [address] [address]Dr. Rc Foster LDL CALC NORMAL SEE BELOW Normal [facility] Comment on above: Result Comment: <100 mg/dl OPTIMAL 100 - 129 mg/dl NEAR OR ABOVE OPTIMAL 130 - 159 mg/dl BORDERLINE HIGH 160 - 189 mg/dl HIGH >190 mg/dl VERY HIGH Performed By: #### T SH, CMP, LIPID ####[facility] [place] [facility] [address] [id number]. Rc Foster Triglyceride [Mass/Vol] 275 mg/dL Critically high <=150 [facility] [place] [facility] Comment on above: Performed By: #### T SH, CMP, LIPID ####[facility] [place] [facility] [address] [address]Dr. Rc Foster VLDL CALC 55.0 mg/dL Normal [facility] [place] [facility] Comment on above: Performed By: #### T SH, CMP, LIPID ####[facility] [place] [facility] [address] [address]Dr. Rc Foster PROF 14(COMP METB)on 022 Albumin [Mass/Vol] 4.0 g/dL Normal 3.4-5.0 [facility] Comment on above: Performed By: #### T SH, CMP, LIPID ####[facility] [place] [facility] [address] [address]Dr. Rc Foster Albumin/Globulin [Mass ratio] 1.1 {ratio} Normal [facility] Comment on above: Performed By: #### T SH, CMP, LIPID ####[facility] [place] [facility] [address] [address]Dr. Rc Foster ALP [Catalytic activity/Vol] 71 U/L Normal 46-116 [facility] [place] [facility] Comment on above: Performed By: #### T SH, CMP, LIPID ####[facility] [place] [facility] [address] [address]Dr. Rc Foster ALT [Catalytic activity/Vol] 29 U/L Normal 14-59 [facility] Comment on above: Performed By: #### T SH, CMP, LIPID ####[facility] [place] [facility] [address] [address]Dr. Rc Foster Anion gap [Moles/Vol] 13.2 mmol/L Normal [facility] [place] [facility] Comment on above: Performed By: #### T SH, CMP, LIPID ####[facility] [place] [facility] [address] [place], [place] [address]Dr. Rc Foster AST [Catalytic activity/Vol] 17 U/L Normal 15-37 [facility] Comment on above: Performed By: #### T SH, CMP, LIPID ####[facility] [place] [facility] [address] [address]Dr. Rc Foster Bilirubin [Mass/Vol] 0.6 mg/dL Normal 0.2-1.0 [facility] [place] [facility] Comment on above: Performed By: #### T SH, CMP, LIPID ####[facility] [place] [facility] [address] [address]Dr. Rc Foster Calcium [Mass/Vol] 9.0 mg/dL Normal 8.5-10.1 [facility] Comment on above: Performed By: #### T SH, CMP, LIPID ####[facility] [place] [facility] [address] [address]Dr. Rc Foster Chloride [Moles/Vol] 102 mmol/L Normal 98-107 [facility] [place] [facility] Comment on above: Performed By: #### T SH, CMP, LIPID ####[facility] [place] [facility] [address] [address]Dr. Rc Foster CO2 [Moles/Vol] 27.3 mmol/L Normal 21.0-32.0 [facility] Comment on above: Performed By: #### T SH, CMP, LIPID ####[facility] [place] [facility] [address] [address]Dr. Rc Foster Creatinine [Mass/Vol] 1.00 mg/dL Normal 0.55-1.02 [facility] [place] [facility] Comment on above: Performed By: #### T MARY JANE, CMP, LIPID ####[facility] [place] [facility] [address] [address]Dr. Rc Foster EGFR-AF SERBIAN >60 Normal >=60 [facility] Comment on above: Performed By: #### T MARY JANE, CMP, LIPID ####[facility] [place] [facility] [address] [address]Dr. Rc Foster EGFR-NON AF SERBIAN 56 mL/min/1.73m2 Critically low >=60 [facility] [place] [facility] Comment on above: Performed By: #### T MARY JANE, CMP, LIPID ####[facility] [place] [facility] [address] [address]Dr. Rc Foster Globulin (S) [Mass/Vol] 3.5 g/dL Normal [facility] Comment on above: Performed By: #### T MARY JANE, CMP, LIPID ####[facility] [place] [facility] [address] [id number]. Rc Foster Glucose [Mass/Vol] 159 mg/dL Critically high 74-106 [facility] Comment on above: Performed By: #### T SH, CMP, LIPID ####[facility] [place] [facility] [address] [address]Dr. Rc Foster Potassium [Moles/Vol] 4.5 mmol/L Normal 3.5-5.1 [facility] [place] [facility] Comment on above: Performed By: #### T SH, CMP, LIPID ####[facility] [place] [facility] [address] [place], [place] [address]Nj. Rc Foster Protein [Mass/Vol] 7.5 g/dL Normal 6.4-8.2 [facility] Comment on above: Performed By: #### T SH, CMP, LIPID ####[facility] [place] [facility] [address] [place], [place] [address]Lb. Rc Foster Sodium [Moles/Vol] 138 mmol/L Normal 136-145 [facility] Comment on above: Performed By: #### T SH, CMP, LIPID ####[facility] [place] [facility] [address] [id number]. Rc Foster Urea nitrogen [Mass/Vol] 23.0 mg/dL Critically high 7.0-18.0 [facility] Comment on above: Performed By: #### T SH, CMP, LIPID ####[facility] [place] [facility] [address] [id number]. Rc Foster Urea nitrogen/Creatinine [Mass ratio] 23.0 mg/mg Normal [facility] Comment on above: Performed By: #### T SH, CMP, LIPID ####[facility] [place] [facility] [address] [id number]. Rc Foster TSHon 03-30-2022 TSH 2.807 uIU/mL Normal 0.358-3.740 [facility] Comment on above: Performed By: #### T SH, CMP, LIPID ####[facility] [place] [facility] [address] [id number]. Rc Foster US THYROIDon 03-30-2022 US THYROID [...] by: BERNY QUISPE Date: 2022-03-30 11:03 Normal [facility] MG MAMM SCREEN 3D LEX CADon 03-19-2022 MG MAMM SCREEN 3D LEX CAD Patient: CARROLL FUENTES Exam Date: 03/19/2022 : 1960 Gender:F Ordering : DR ROBERT VILLASENOR D.O. Admission #: [id number] Family : Order #: [id number] CLICK HERE TO VIEW EXAM RADIOLOGY REPORT [...] Treatments None Family Cancers None LOCATION: [facility] [place] [facility] BREAST COMPOSITION: Scattered areas fibroglandular density. [...] Berny Quispe M.D. on 03/23/2022 at 11:59 [facility] CBC AUTO DIFFon 11-27-2021 BASO # 0.0 103/ul Normal 0.0-0.1 [facility] Comment on above: Performed By: #### C BC #### [facility] [place] [facility] [address] [address] [address] Rc Foster Basophils/100 WBC (Bld) 0.7 % Normal 0.2-2.0 [facility] Comment on above: Performed By: #### C BC #### [facility] [place] [facility] [address] [place] [address] Dr. Rc Foster EO # 0.6 103/ul Normal 0.0-0.7 [facility] Comment on above: Performed By: #### C BC #### [facility] [place] [facility] [address] [place] [address] Dr. Rc Foster Eosinophils/100 WBC (Bld) 10.3 % Critically high 0.9-7.0 [facility] Comment on above: Performed By: #### C BC #### [facility] [place] [facility] [address] [place] [address] Dr. Rc Fosetr Erythrocyte distribution width (RBC) [Ratio] 12.4 % Normal 11.0-15.0 [facility] Comment on above: Performed By: #### C BC #### [facility] [place] [facility] [address] [place] [address] Dr. Rc Foster Hematocrit (Bld) [Volume fraction] 41.2 % Normal 36.0-48.0 [facility] Comment on above: Performed By: #### C BC #### [facility] [place] [facility] [address] [place] [address] Dr. Rc Foster Hemoglobin (Bld) [Mass/Vol] 13.4 g/dL Normal 12.0-16.0 [facility] Comment on above: Performed By: #### C BC #### [facility] [place] [facility] [address] [place] [address] Dr. Rc Foster IG # 0.01 10e3/ul Normal 0.00-0.03 [facility] Comment on above: Performed By: #### C BC #### [facility] [place] [facility] [address] [place] [address] Dr. Rc Foster IG % 0.2 % Normal 0.0-0.5 [facility] Comment on above: Performed By: #### C BC #### [facility] [place] [facility] [address] [place] [address] Dr. Rc Foster LYMPH # 2.3 103/ul Normal 1.2-3.8 [facility] Comment on above: Performed By: #### C BC #### [facility] [place] [facility] [address] [place] [address] Dr. Rc Foster Lymphocytes/100 WBC (Bld) 40.6 % Normal 20.5-60.0 [facility] Comment on above: Performed By: #### C BC #### [facility] [place] [facility] [address] [place] [address] Dr. Rc Foster MANUAL DIFF REQ NO Normal [facility] Comment on above: Performed By: #### C BC #### [facility] [place] [facility] [address] [place] [address] Dr. Rc Foster MCH (RBC) [Entitic mass] 28.8 pg Normal 26.7-34.0 [facility] Comment on above: Performed By: #### C BC #### [facility] [place] [facility] [address] [place] [address] Dr. Rc Foster MCHC (RBC) [Mass/Vol] 32.5 g/dL Normal 29.9-35.2 [facility] Comment on above: Performed By: #### C BC #### [facility] [place] [facility] [address] [place] [address] Dr. Rc Foster MCV (RBC) [Entitic vol] 88.6 fL Normal 81.0-99.0 [facility] Comment on above: Performed By: #### C BC #### [facility] [place] [facility] [address] [place] [address] Dr. Rc Foster MONO # 0.4 103/ul Normal 0.3-0.8 [facility] Comment on above: Performed By: #### C BC #### [facility] [place] [facility] [address] [place] [address] Dr. Rc Foster Monocytes/100 WBC (Bld) 7.6 % Normal 1.7-12.0 [facility] Comment on above: Performed By: #### C BC #### [facility] [place] [facility] [address] [place] [address] Dr. Rc Foster NEUT # 2.3 103/ul Normal 1.4-6.5 [facility] Comment on above: Performed By: #### C BC #### [facility] [place] [facility] [address] [place] [address] Dr. Rc Foster Neutrophils/100 WBC (Bld) 40.6 % Critically low 43.0-75.0 [facility] Comment on above: Performed By: #### C BC #### [facility] [place] [facility] [address] [place] [address] Dr. Rc Foster Platelet mean volume (Bld) [Entitic vol] 9.6 fL Normal 9.5-13.5 [facility] Comment on above: Performed By: #### C BC #### [facility] [place] [facility] [address] [place] [address] Dr. Rc Foster PLT 194 103/ul Normal 150-450 [facility] Comment on above: Performed By: #### C BC #### [facility] [place] [facility] [address] [place] [address] Dr. Rc Foster RBC 4.65 106/ul Normal 4.20-5.40 [facility] Comment on above: Performed By: #### C BC #### [facility] [place] [facility] [address] [place] [address] Dr. Rc Foster WBC 5.5 103/ul Normal 4.0-11.0 [facility] Comment on above: Performed By: #### C BC #### [facility] [place] [facility] [address] [place] [address] Dr. Rc Foster GLYCOHEMOGLOBIN A1Con 2021 ADA RECOMMENDATION SEE BELOW Normal [facility] [place] Comment on above: Result Comment: ADA RECOMMENDED LIMIT 4.0 - 6.0 ADA THERAPEUTIC TARGET < 7.0 ACTION SUGGESTED > 7.0 Performed By: #### A 1C #### [facility] [place] [facility] [address] [place] [address] Dr. Rc Foster Glucose [Mass/Vol] 131 mg/dL Normal [facility] Comment on above: Performed By: #### A 1C #### [facility] [place] [facility] [address] [place] [address] Dr. Rc Foster HbA1c (Bld) [Mass fraction] 6.2 % Normal 4.5-6.2 [facility] Comment on above: Performed By: #### A 1C #### [facility] [place] [facility] [address] [place] [address] Dr. Rc Foster PROF CHEM 8 (BAS METB)on Anion gap [Moles/Vol] 15.2 mmol/L Normal [facility] Comment on above: Performed By: #### T MARY JANE, BMP #### [facility] [place] [facility] [address] [place] [address] Dr. Rc Foster Calcium [Mass/Vol] 8.5 mg/dL Normal 8.5-10.1 [facility] Comment on above: Performed By: #### T MARY JANE, BMP #### [facility] [place] [facility] [address] [place] [address] Dr. Rc Foster Chloride [Moles/Vol] 100 mmol/L Normal 98-107 [facility] [place] [facility] Comment on above: Performed By: #### T MARY JANE, BMP #### [facility] [place] [facility] [address] [place] [address] Dr. Rc Foster CO2 [Moles/Vol] 26.6 mmol/L Normal 21.0-32.0 [facility] Comment on above: Performed By: #### T MARY JANE, BMP #### [facility] [place] [facility] [address] [place] [address] Dr. Rc Foster Creatinine [Mass/Vol] 1.15 mg/dL Critically high 0.55-1.02 [facility] [place] [facility] Comment on above: Performed By: #### T MARY JANE, BMP #### [facility] [place] [facility] [address] [place] [address] Dr. Rc Foster EGFR-AF SERBIAN 58 mL/min/1.73m2 Critically low >=60 [facility] [place] [facility] Comment on above: Performed By: #### T MARY JANE, BMP #### [facility] [place] [facility] [address] [address] [address] Rc Foster EGFR-NON AF SERBIAN 48 mL/min/1.73m2 Critically low >=60 [facility] Comment on above: Performed By: #### T SH, BMP #### [facility] [place] [facility] [address] [address] [address] Rc Foster Glucose [Mass/Vol] 211 mg/dL Critically high 74-106 [facility] Comment on above: Performed By: #### T SH, BMP #### [facility] [place] [facility] [address] [place] [address] Dr. Rc Foster Potassium [Moles/Vol] 4.8 mmol/L Normal 3.5-5.1 [facility] Comment on above: Performed By: #### T MARY JANE, BMP #### [facility] [place] [facility] [address] [place] [address] Dr. Rc Foster Sodium [Moles/Vol] 137 mmol/L Normal 136-145 [facility] Comment on above: Performed By: #### T MARY JANE, BMP #### [facility] [place] [facility] [address] [place] [address] Dr. Rc Foster Urea nitrogen [Mass/Vol] 33.0 mg/dL Critically high 7.0-18.0 [facility] Comment on above: Performed By: #### T MARY JANE, BMP #### [facility] [address] [place] [address] Dr. Rc Foster Urea nitrogen/Creatinine [Mass ratio] 28.7 mg/mg Normal [facility] Comment on above: Performed By: #### T MARY JANE, BMP #### [facility] [address] [place] [address] Dr. Rc Foster TSHon 11-27-2021 TSH 0.744 uIU/mL Normal 0.358-3.740 [facility] Comment on above: Performed By: #### T MARY JANE, BMP #### [facility] [address] [place] [address] Dr. Rc Foster SYMPTOMATIC COVID-19 ANTIGEN on 10-28-2021 EUA Statement SEE BELOW Normal [facility] Comment on above: Result Comment: [...] revoked sooner. Performed By: #### C VDAGS ####[facility] [id number] [place] [address]Dr. Rc Foster SARS-CoV-2 (COVID-19) RNA YARED+probe Ql (Unsp spec) Negative Normal NEGATIVE [facility] Comment on above: Performed By: #### C VDAGS ####[facility] [id number] [place] [address]Dr. Rc Foster GLYCOHEMOGLOBIN A1Con 2021 ADA RECOMMENDATION SEE BELOW Normal [facility] Comment on above: Result Comment: ADA RECOMMENDED LIMIT 4.0 - 6.0 ADA THERAPEUTIC TARGET < 7.0 ACTION SUGGESTED > 7.0 Performed By: #### A 1C #### [facility] [address] [place] [address] Dr. Rc Foster Glucose [Mass/Vol] 128 mg/dL Normal [facility] Comment on above: Performed By: #### A 1C #### [facility] [address] [address] [address] Rc Foster HbA1c (Bld) [Mass fraction] 6.1 % Normal 4.5-6.2 [facility] Comment on above: Performed By: #### A 1C #### [facility] [address] [address] [address] Rc Foster Discharge CCD Assessmenton 09-06-2020 Discharge CCD Assessment [facility] Patient: CARROLL FUENTES[address] [place], [place] [address] MR#: [id number] DISCHARGE CCD ASSESSMENT : 58 Service Date: 09/06/20 1018 Discharge CCD Assessment Assessment Patient discharged home to continue exercises, pain medication, and wound care Electronically Signed eSign Date and Time Melyssa Flores 09/06/20 1019 Tera Hernandez MD Normal [facility] GLUCOSE METERon 09-06-2020 Glucose [Mass/Vol] 126 mg/dL High 70-99 [facility] Comment on above: Order Comment: CONSE RVATION Result Comment: Fast ing GLUCOSE reference range has been updated per (ADA) [place] [employer] Association's recommendation. 07/18/2018 Performed By: #### L 500.66824 ####Test performed at: [place] [address] Glucose [Mass/Vol] 205 mg/dL High 70-99 [facility] Comment on above: Order Comment: CONSE RVATION Result Comment: Fast ing GLUCOSE reference range has been updated per (ADA) [place] Diabetes Association's recommendation. 07/18/2018 Insulin per sl scale Performed By: #### L 500.18935 #### Test performed at: [place] [address] Internal Med Progress Noteon 09-06-2020 Internal Med Progress Note [facility] Patient: CARROLL FUENTES [address] [place], [place] [address] MR#: [id number] PROGRESS NOTE - Internal Medicine : 58 [...] Flanagan RES, Katarzyna MD 09/06/20 1134 Normal [facility] Orthopedic Progress Noteon 0 09-06-2020 Orthopedic Progress Note [facility] Patient: CARROLL FUENTES [address] [place] [address] MR#: [id number] PROGRESS NOTE - Orthopedic : 58 Service [...] RN 09/06/20 1022 Tera Hernandez MD Normal [facility] Anesthesia Noteon 05-14-2021 Anesthesia Note [facility] Patient: CARROLL FUENTES [address] [place] [address] MR#: [id number] ANESTHESIA NOTE : Service Date: 09/05/20 0812 [...] Signed eSign Date and Time Krystian Akers 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 CLERK-[employer]TR[employer] 09/05/20812 Chu Glez MD Normal [facility] BASIC MET PANELon 09-05-2020 Anion gap [Moles/Vol] 12 mmol/L Normal 6-18 [facility] Comment on above: Performed By: #### L 500.72706, L500.37153 #### Test performed at: [place] [id number] Calcium [Mass/Vol] 8.7 mg/dL Normal 8.5-10.1 [facility] Comment on above: Performed By: #### L 500.94244, L500.36765 #### Test performed at: [address] [address] Chloride [Moles/Vol] 101 mmol/L Normal 98-107 [facility] Comment on above: Performed By: #### L 500.70769, L500.19255 #### Test performed at: [address] [address] CO2 [Moles/Vol] 25 mmol/L Normal 21-32 [facility] Comment on above: Performed By: #### L 500.55771, L500.40324 #### Test performed at: [address] [address] Creatinine [Mass/Vol] 1.020 mg/dL Normal 0.550-1.020 [facility] Comment on above: Performed By: #### L 500.37068, L500.27670 #### Test performed at: [address] [address] Glucose [Mass/Vol] 264 mg/dL High 70-99 [facility] Comment on above: Result Comment: Fast ing GLUCOSE reference range has been updated per (ADA) [place] Diabetes Association's recommendation. 07/18/2018 Performed By: #### L 500.39072, L500.56112 #### Test performed at: [address] [address] OSM 289 mosm/kg Normal 270-300 [facility] Comment on above: Performed By: #### L 500.78734, L500.38271 #### Test performed at: [address] [address] Potassium [Moles/Vol] 4.5 mmol/L Normal 3.5-5.1 [facility] Comment on above: Performed By: #### L 500.01360, L500.90816 #### Test performed at: [address] [address] Sodium [Moles/Vol] 134 mmol/L Low 136-145 [facility] Comment on above: Performed By: #### L 500.84586, L500.48425 #### Test performed at: [address] [address] Urea nitrogen [Mass/Vol] 17 mg/dL Normal 7-18 [facility] Comment on above: Performed By: #### L 500.20656, L500.90877 #### Test performed at: [address] [address] GFR ESTIMATEon 09-05-2020 IF AMER > 60 Normal > 60 [facility] Comment on above: Result Comment: eGFR (Estimated GFR) Units of measure:mL/min/1.73 meters sq. *CALCULATION REVISED 02/11/2015;IDMS-traceable MDRD equation eGFR is derived from the reexpressed MDRD Study equation using the following parameters: serum creatinine, age, gender and race. An eGFR<60 mL/min/1.73m2 for >3 months is consistent with chronic kidney disease. Refer to KDOQI guidelines for clinical interpretation. Performed By: #### L 500.33801, L500.29583 #### Test performed at: [address] [address] IF non-AFR AMER 55 Low > 60 [facility] Comment on above: Performed By: #### L 500.48323, L500.94550 #### Test performed at: [address] [address] GLUCOSE METERon 09-05-2020 Glucose [Mass/Vol] 177 mg/dL High 70-99 [facility] Comment on above: Order Comment: CONSE RVATION Result Comment: Fast ing GLUCOSE reference range has been updated per (ADA) [place] Diabetes Association's recommendation. 07/18/2018 Performed By: #### L 500.41130 #### Test performed at: [address] [address] Glucose [Mass/Vol] 310 mg/dL High 70-99 [facility] Comment on above: Result Comment: Fast ing GLUCOSE reference range has been updated per (ADA) [place] Diabetes Association's recommendation. 07/18/2018 Insulin per sl scale Performed By: #### L 500.35620 ####Test performed at: [address] [address] Glucose [Mass/Vol] 281 mg/dL High 70-99 [facility] Comment on above: Result Comment: Fast ing GLUCOSE reference range has been updated per (ADA) [place] Diabetes Association's recommendation. 07/18/2018 Insulin per sl scale Performed By: #### L 500.72504 #### Test performed at: [place] [address] Glucose [Mass/Vol] 105 mg/dL High 70-99 [facility] Comment on above: Result Comment: Fast ing GLUCOSE reference range has been updated per (ADA) [place] Diabetes Association's recommendation. 07/18/2018 Performed By: #### L 500.93376 #### Test performed at: [place] [address] HGB AND HCTon 09-05-2020 Hematocrit (Bld) [Volume fraction] 37.5 % Normal 36.0-48.0 [facility] Comment on above: Performed By: #### L 200.09472 #### Test performed at: [place] [address] Hemoglobin (Bld) [Mass/Vol] 12.5 g/dL Normal 12.0-15.0 [facility] Comment on above: Performed By: #### L 200.15048 #### Test performed at: [place] [address] Internal Med Progress Noteon 09-05-2020 Internal Med Progress Note [facility] Patient: CARROLL FUENTES [address] [place] [address] MR#: [id number] PROGRESS NOTE - Internal Medicine : 58 [...] input. Disc (more content not included)... Normal [facility] OT Therapy Recommendationson 09-05-2020 OT Therapy Recommendations [facility] Patient: CARROLL FUENTES [address] [place], [place] [address] MR#: [id number] OT THERAPY RECOMMENDATIONS : 58 Service Date: 09/05/20 151 Therapy Recommendations Therapy Recommendations Recommendations OT evaluation completed. OT recommends HOME with FAmily assist. No further acute OT needs are indicated at this time. Electronically Signed eSign Date and Time Trupti Rojas OT 09/05/20 1512 Normal [facility] Orthopedic Progress Noteon 0 09-05-2020 Orthopedic Progress Note [facility] Patient: CARROLL FUENTES [address] [place], [place] [address] MR#: [id number] PROGRESS NOTE - Orthopedic : 58 Service [...] 09/05 09/05 09/05 09/04 1058 [id number] Chemistry Sodium (136 - 145 mmol/L) 134 [...] ss Electronically Signed eSign Date and Time PRABHAKARRUBEN Meier 09/05/20 1429 Tera Hernandez MD Normal [facility] PT Therapy Recommendationson 09-05-2020 PT Therapy Recommendations [facility] Patient: CARROLL FUENTES [address] [place] [address] MR#: [id number] PT THERAPY RECOMMENDATIONS : 58 Service Date: 09/05/20 0914 Therapy Recommendations Therapy Recommendations Recommendations PT eval complete. No further acute PT needs. Recommend d/c home /c family assist. Electronically Signed eSign Date and Time Tiffanie Bashir PT 09/05/20 0914 Normal [facility] z OT Inpatient Discharge Not juan 09-05-2020 z OT Inpatient Discharge Note [facility] Patient: CARROLL FUENTES [address] [place] [address] MR#: [id number] OT INPATIENT DISCHARGE NOTE : 58 Service [...] Time Trupti Rojas OT 09/05/20 1534 Normal [facility] z OT Inpatient Evaluationon 09-05-2020 z OT Inpatient Evaluation [facility] Patient: CARROLL FUENTES [address] [place] [address] MR#: [id number] OT INPATIENT EVALUATION : 58 Inpatient OT HPI Date of Service 09/05/20 Time In: 1401 Time Out: 1412 Total Treatment Time (Mins) 11 Visit Reason LATERAL RECESS STENOSIS W/ RADICULOPATHY Surgery Type/Date s/p L L4-5 LAmi, foraminotomy, decompression on 09.04.20/ Lumbar spine precautions Referral Date 09/04/20 Tx Diagnosis: LOW BACK PAIN Insurance Name [employer] [facility] Hospital Course Pt is a left hand [...] 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 Objective Precautions Lumbar [...] Excellent Nader (more content not included)... Normal [facility] z PT Inpatient Discharge Not juan 09-05-2020 z PT Inpatient Discharge Note [facility] Patient: CARROLL FUENTES [address] [place] [address] MR#: [id number] PT INPATIENT DISCHARGE NOTE : 58 Service [...] DISCHARGED Electronically Signed eSign Date and Time MichaelrosalvalevyTiffanie PT 09/05/20 1139 Normal [facility] z PT Inpatient Evaluationon 09-05-2020 z PT Inpatient Evaluation [facility] Patient: CARROLL FUENTES [address] [place] [address] MR#: [id number] PT INPATIENT EVALUATION : 58 Service Date: 09/05/20 0928 Inpatient PT HPI Date of Service 09/05/20 Time In: 0845 Time Out: 0907 Total Treatment Time (Mins) 22 Room Number 624 Visit Reason LATERAL RECESS STENOSIS W/ RADICULOPATHY Surgery Type: L L4-5 lami, foraminotomy, decompression Surgery Date: 09/04/20 Referral Date 09/04/20 Tx Diagnosis: LOW BACK PAIN [facility] 60 y.o female at [facility] for above sx d/t lateral recess [...] posture. 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 Pt agreeable to use of her cane [...] Time Tiffanie Bashir PT 09/05/20 1502 Normal [facility] GLUCOSE METERon 09-04-2020 Glucose [Mass/Vol] 94 mg/dL Normal 70-99 [facility] Comment on above: Result Comment: Fast ing GLUCOSE reference range has been updated per (ADA) [place] Diabetes Association's recommendation. 07/18/2018 Performed By: #### L 500.12425 ####Test performed at: [place] [address] Internal Medicine Consultati onon 09-04-2020 Internal Medicine Consultation [facility] Patient: CARROLL FUENTES [address] [place] [address] MR#: [id number] CONSULTATION - Internal Medicine : 58 Service [...] Reviewed on 09/04/20 105 by RAISA CABELLO Glimepiride * (Amaryl *) [...] Ref 0 (Reported) Entered as Reported by RAIAS CABELLO on 09/04/20 105 Last Action: Reviewed on 09/04/20 105 by RAISA CABELLO Pravastatin Sodium * (Pravachol *) 20 MG TABLET 20 MG PO QHS HIGH CHOLESTROL, Ref 0 ( Reported) Entered as Reported by JORDON MATHUR on 12/11/18916 Last Action: Reviewed on 09/04/20 105 by [...] 1049 Last Action: Reviewed on 09/04/201054 by ARISA CABELLO Rizatriptan Benzoate* (Maxalt*) 10 MG TABLET 10 MG PO BIDPRN PRN MIGRAINES, Ref 0 ( Reported) Entered as Reported by JORDON MATHUR on 12/11/1815 Last Action: Reviewed on 09/04/20 1055 by RAISA CABELLO Discontinued Medications oxyCODONE HCl 5mg AND Acetaminophen 325mg * (Percocet 5mg/325mg Tablet *) 1 EACH TABLET 1 EACH PO Q4-6H PRN PRN post op pain 7 Days #40 TABLET, Ref 0 Discontinued reason: DC'ed by Physician Last Action: Discontinued on 09/04/20 1048 by RAISA CABELLO Review of Systems (more content not included)... Normal [facility] OPERATIVE REPORTon OPERATIVE REPORT NAME: CARROLL FUENTES MR#: [id number] SURGEON: Tera Hernandez MD DATE OF SURGERY: [...] there were no complications. TERA HERNANDEZ MD [facility] PT NAME: CARROLL FUENTES MR#: [id number] [address] [place], [place] [address] ACCT: [id number] : 58 OPERATIVE REPORT JFS/[id number] E/S: Tera Hernandez MD 09/18/20 1207 Electronically Signed [facility] PT NAME: CARROLL FUENTES MR#: [id number] [address] [place], [place] [address] ACCT: [id number] : 58 OPERATIVE REPORT Normal [facility] Primary Residenton 1 Primary Resident [facility] Pt Name: CARROLL FUENTES MR#: [id number] [address] [place] [address] ACCT: [id number] [place] [address] : 58 Service Date: 09/04/20 1603 Primary Resident/Call Primary Resident: [id number] [place] After Hours Call: [phone] Red Team Electronically Signed eSign Date and Time Ana Flanagan RES 09/16/20 1521 Normal [facility] LUMBAR SPINE 2 OR 3 VIEWSon 09-03-2020 LUMBAR SPINE 2 OR 3 VIEWS STUDY: LUMBAR SPINE 2 OR 3 VIEWS; 09/04/2020 2:57 pm INDICATION: LEFT L4-L5 LAMINECTOMY,FORAMINOTOM Y,DECOMPRESSION. COMPARISON: None. ACCESSION NUMBER(S): [id number] ORDERING CLINICIAN: Tera Hernandez FINDINGS: Intraoperative fluoroscopy of the lumbar spine demonstrates surgical instruments posterior to L5. IMPRESSION: As above Normal [facility] CHEST PA/AP & LATERALon CHEST PA/AP & LATERAL STUDY: CHEST PA/AP LATERAL; 08/25/2020 11:00 am INDICATION: SOB/PAT. COMPARISON: None. ACCESSION NUMBER(S): [id number] ORDERING CLINICIAN: Madelyn Leone FINDINGS: The lungs are clear without pleural effusion. Normal heart size, mediastinum, elzbieta, and pulmonary vasculature. IMPRESSION: No active disease in the chest. Normal [facility] CONSULTATION REPORTon 2020 CONSULTATION REPORT NAME: CARROLL FUENTES MR#: [id number] [place] REPRESENTATIVE: Madelyn Leone MD DATE OF CONSULTATION: 08/25/2020 [...] pulse ox is 98% on room air. [facility] PT NAME: CARROLL FUENTES MR#: [id number] [address] [place] [address] ACCT: [id number] : 58 CONSULTATION HEENT: Atraumatic head. 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 IMPRESSION: 1. Preop clearance for L4-L5 disk [...] courtesy of this consultation. MADELYN LEONE MD [place]/[facility]/[id number] E/S: Madelyn Leone MD 08/26/20 1750 Electronically Signed [facility] PT NAME: CARROLL FUENTES MR#: [id number] [address] [place] [address] ACCT: [id number] : 58 CONSULTATION Normal [facility] LUMB SP COMP W FLEX/EXT 6 VW S>on 08-08-2020 LUMB SP COMP W FLEX/EXT 6 VWS> STUDY: LUMB SP COMP W FLEX/EXT 6 VWS>; 08/08/2020 9:43 am INDICATION: BACK PAIN. COMPARISON: No available comparisons. ACCESSION NUMBER(S): [id number] ORDERING CLINICIAN: Tera Hernandez TECHNIQUE: 6 views [...] L5-S1 level. No evidence of instability.. Normal [facility] XR SHLDR >/=3V AP/RUSH AP/OTH R [...] on Jul 03 2018 10:17AM EST [id number] [facility] ANES Holly 06-20-2018 ANES POST HNO ID: [id number] Author: Rohit Velarde Service: Anesthesiology Author Type: [...] 20, 2018 TIME: 2:38 PM PAGER/CONTACT #: [facility] ANES PREOPon 06-20-2018 ANES PREOP HNO ID: [id number] Author: Rohit Velarde Service: Anesthesiology Author Type: [...] (XYLOCAINE) 0.1-0.2 mL INTRADERMAL PRN Isreal Mccabe (Ari) Trent lactated ringers infusion 5-30 mL/hr INTRAVENOUS [...] June 20, 2018 TIME: 9:35 AM CSN: [id number] [facility] BRIEF OP NOTon 06-20-2018 BRIEF OP NOT HNO ID: [id number] Author: Kusum Francisco Service: Orthopaedic Surgery Author Type: Resident Type: Brief Op Note Filed: 06/20/2018 5:49 PM Note Text: BRIEF OP NOTE LOG ID: [id number] Surgery/Procedure Date: 06/20/2018 Incision/Procedure Start Time: 11:18 AM Incision Close/Procedure End Time: 1:17 PM Surgeon(s)/Bonnieis t(s) and Gang Head Saw Operator(s): Surgeon(s) and Role: * Jenna Garsia - [...] 20, 2018 TIME: 5:49 PM PAGER/CONTACT #: [facility] CASE MANAGEMon 06-20-2018 CASE MANAGEM HNO ID: [id number] Author: May Herrera (Sw) Service: Care Management Author Type: Front Office Manager Type: Care Mgt Progress Note Filed: [...] is pcp summary of care sent via [facility] () Nurse to provide discharge instructions. TRANSPORTATION ARRANGEMENTS: Car Spouse ADDITIONAL CONTACT RESOURCES: Needs Prior to Discharge: Ready for Discharge Appointments for Next 45 Days Date Time Provider Location Dept Phone 07/03/2018 10:00 AM CAROAL BAPTISTE AT [phone] 07/03/2018 10:30 AM GABRIEL CANTU) LATOSHA AT [phone] 07/31/2018 2:15 PM JENNA GARSIA AT [phone] Pt to be discharged home to follow up as above. 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 Stated Goals: To improve my functional status Health Insurance: [employer] None Health Issues Impacting Discharge Plan: Pt [...] With: Spouse Financial Resources: 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 O.Therapy recommend home. Spouse visiting at bedside and will transport pt home later today.Further discharge needs not anticipated.SW/TCC to follow to assist with plans for discharge. SIGNATURE: DARIO Saini PATIENT NAME: Carroll Fuentes DATE: June 20, 2018 TIME: 5:27 PM PAGER/CONTACT #: [phone] [facility] CONSULTon 06-20-2018 CONSULT HNO ID: [id number] Author: Dulce Green Service: General Internal Medicine [...] Disp: Rfl: 06/19/2018 at 0630 rizatriptan (MAXALT BUFFERER) 10 mg disintegrating tablet DISSOLVE 1 TABLET [...] the care of your patient. Dulce Green APRN.HHAS June 20, 2018 4:34 PM Normal [facility] NURSING PROGon 06-20-2018 Protein mass conc HNO ID: [id number] Author: Fela (Rn) FLETCHER Phillips Service: (none) Author Type: Registered Nurse Type: Nursing Progress Note Filed: 06/20/2018 7:39 PM Note Text: Nursing Progress Note Patient Name: Carroll Fuentes Patient [facility]: [facility]/ [place]-* Daily Note: 1545. Care assumed. Pt resting [...] at bedside. 1720. Dr. Meeks and Dulce APPLIANCE REPAIRER at bedside, plan is to stay for [...] note was completed by: Fela Phillips RN [facility] Protein mass conc HNO ID: [id number] Author: Wendy (Rn) FLETCHER Underwood Service: Nursing Author Type: Registered Nurse Type: Nursing Progress Note Filed: 06/20/2018 10:20 AM Note Text: Nursing Progress Note Patient Name: Carroll Fuentes Patient Location: SUR[facility]ERY [facility] Daily Note:Right interscalene nerve block with ultrasound guidance with Dr. Velarde and Dr. Marlow at bedside. Patient tolerated procedure well, VSS, will continue to monitor as we wait for OR team. Resting comfortably with no complaints of pain at this time. This note was completed by: Wendy Underwood RN [facility] OPERATIVE NOon 06-20-2018 OPERATIVE NO HNO ID: [id number] Author: Jenna Garsia Service: Orthopaedic Surgery Author Type: Physician Type: Operative Report Filed: 06/20/2018 1:25 PM Note Text: [place] [address] [place] OPERATIVE REPORT NAME: Carroll Fuentes [facility] #: [id number] DATE: 06/20/2018 (11:18am-1:17pm) AGE: 58 SURGEON 1: Jenna Garsia M.D. GETTERING OPERATOR: 1. Augie Coates M.D. 2. Kusum Prasad M.D. 3. Mundo Pablo OPERATION: Right total shoulder arthroplasty, biceps tenodesis. ANESTHESIA: General anesthesia with regional interscalene nerve block for postoperative pain control. PREOPERATIVE DIAGNOSIS: Right shoulder primary glenohumeral osteoarthritis. POSTOPERATIVE DIAGNOSIS: Right shoulder primary glenohumeral osteoarthritis, biceps tendinopathy. OPERATIVE INDICATIONS: The patient is a 58 year oldumq-zczl-tht right-hand dominant white female who has a [...] rotator interval stitch was then passed in pxvewn-vx-syljn fashion with a #2 Ticron suture and tied down to close the lateral rotator interval and set the osteotomy superiorly. The two #2 Fiberwire sutures coming out of the bicipital groove were then sequentially passed in a bsgqtt-wk-pelgh fashion medial to the horizontal mattress and [...] none COMPLICATIONS: none apparent Jenna Garsia M.D. [facility] PT EDon 06-20-2018 PT ED HNO ID: [id number] Author: Cindy Griffin RN Service: (none) Author Type: Registered [...] Signed By: Cindy Griffin RN In Department: [facility] THERAPY NTon 06-20-2018 THERAPY NT HNO ID: [id number] Author: Abi Phillips Service: Occupational Therapy Author Type: Occupational Therapist Type: Therapy (PT/OT/Speech/Resp) Filed: 06/20/2018 4:59 PM Note Text: Occupational Therapy Evaluation SERVICE DATE: 06/20/2018 SERVICE TIME: 1550 to 1640 ROOM: [facility] FL-523-P Recommended Discharge Disposition: Home Anticipated [...] daily living (ADL) Interventions Provided: Evaluation;Therapeutic Exercise (81335);Self Custodial Management (79662) $ Evaluation-Low (41041) Billed Units: 1 unit Therapeutic Exercise (64141) Treatment Minutes: 10 1 unit Skilled Intervention(s): Education in Self Custodial Management (40031) Treatment Minutes: 28 2 units Skilled Intervention(s): [...] Patient Lives With: Spouse Assistance Available: time clock repairer Number Of Stairs To Bed/Bath: 0 Equipment [...] SIGNATURE: Abi Phillips OTR/L PATIENT NAME: Carroll Fuentes DATE: June 20, 2018 TIME: 4:54 PM [facility] XR SHOULDER 2V AP/TRUE [...] on Jun 20 2018 2:04PM EST [id number] [facility] NURSING PROGon 06-09-2018 Protein mass conc HNO ID: [id number] Author: Ivana (Rn) FLETCHER Heller Service: Nursing [...] 11:10 AM Addendum 06/15/18 EKG IN [facility] FINAL Ivana Heller RN June 15, 2018 4:39 PM Normal [facility] Type and SCR (30D)on 019 ABO/RH(D) Positive Normal [facility] HOSPon 04-28-2018 HOSP Patient:Adalberto Fuentes MRN: Height:5' 2 (1.575 m) Weight:186 lb (84.369 kg) Outpatient Medications as of 06/20/18: calcium phosphate dibas/vit D3 (VITAMIN D, WITH CALCIUM, ORAL) docusate sodium (COLACE) 100 mg capsule aspirin, enteric coated (ECOTRIN LOW STRENGTH) 81 mg EC tablet oxyCODONE-acetaminophen (PERCOCET) 5-325 mg tablet rizatriptan (MAXALT BUFFERER) 10 mg disintegrating tablet mupirocin (BACTROBAN) 2 [...] 36.0 Progress Notes (RADIO CT SCAN FORMERLY [facility], [facility]1983 [place]): RT Lillian, Tech 06/07/2018 10:04 AM [...] Lillian June 07, 2018 9:54 AM Normal [facility] Vital Signs Date Time Vital Sign Value Performing Clinician Facility 07-18-2024 10:47-0400 Body height 154.94 cm [facility] 07-18-2024 10:47-0400 Body mass index (BMI) [Ratio] 32.8 kg/m2 [facility] 07-18-2024 10:47-0400 Body weight 78.95 kg [facility] 07-18-2024 10:47-0400 Diastolic blood pressure 74 mm[Hg] [facility] 07-18-2024 10:47-0400 Heart rate 68 /min [facility] 07-18-2024 10:47-0400 Respiratory rate 12 /min [facility] 07-18-2024 10:47-0400 Systolic blood pressure 134 mm[Hg] [facility] 07-13-2024 10:11-0400 Body height 154.94 cm [facility] 07-13-2024 10:11-0400 Body mass index (BMI) [Ratio] 32.9 kg/m2 [facility] 07-13-2024 10:11-0400 Body weight 79.01 kg [facility] 07-13-2024 10:11-0400 Diastolic blood pressure 77 mm[Hg] [facility] 07-13-2024 10:11-0400 Heart rate 65 /min [facility] 07-13-2024 10:11-0400 Respiratory rate 12 /min [facility] 07-13-2024 10:11-0400 Systolic blood pressure 117 mm[Hg] [facility] 07-11-2024 08:30-0400 Body temperature 98.6 [degF] Jose Sharif MD Work Phone: [facility] [employer] 07-11-2024 08:30-0400 Diastolic blood pressure 62 mm[Hg] Jose Sharif MD Work Phone: [facility] 07-11-2024 08:30-0400 Heart rate 88 /min Jose Sharif MD Work Phone: [employer] 07-11-2024 08:30-0400 Respiratory rate 16 /min Jose Sharif MD Work Phone: [facility] 07-11-2024 08:30-0400 SaO2% (BldA) [Mass fraction] 98 % Jose Sharif MD Work Phone: [employer] 07-11-2024 08:30-0400 Systolic blood pressure 117 mm[Hg] Jose Sharif MD [facility] Phone[facility] 07-06-2024 20:16-0400 Body height 154.9 cm Jose Sharif MD Work Phone: [facility] 07-06-2024 20:16-0400 Body mass index (BMI) [Ratio] 33.07 kg/m2 Jose Sharif MD [facility]: [facility] 07-06-2024 20:16-0400 Body weight 79.38 kg Jose Sharif MD Work Phone: [facility] 07-04-2024 15:04-0400 Body height 154.94 cm [facility] 07-04-2024 15:04-0400 Body mass index (BMI) [Ratio] 32.9 kg/m2 [facility] 07-04-2024 15:04-0400 Body weight 79.06 kg [facility] 07-04-2024 15:04-0400 Diastolic blood pressure 79 mm[Hg] [facility] 07-04-2024 15:04-0400 Heart rate 69 /min [facility] 07-04-2024 15:04-0400 Respiratory rate 12 /min [facility] 07-04-2024 15:04-0400 Systolic blood pressure 177 mm[Hg] [facility] 06-25-2024 10:11-0500 Body temperature 97.3 [degF] [facility] 06-25-2024 10:11-0500 Diastolic blood pressure 76 mm[Hg] [facility] 06-25-2024 10:11-0500 Heart rate 54 /min [facility] 06-25-2024 10:11-0500 Respiratory rate 16 /min [facility] 06-25-2024 10:11-0500 SaO2% (BldA) [Mass fraction] 98 % [facility] 06-25-2024 10:11-0500 Systolic blood pressure 119 mm[Hg] [facility] 06-25-2024 10:07-0500 Body height 154.94 cm [facility] 06-25-2024 10:07-0500 Body mass index (BMI) [Ratio] 32.9 kg/m2 [facility] 06-25-2024 10:07-0500 Body weight 79.15 kg [facility] 02-24-2024 14:13-0400 Body height 154.94 cm [facility] 02-24-2024 14:13-0400 Body mass index (BMI) [Ratio] 33.1 kg/m2 [facility] 02-24-2024 14:13-0400 Body temperature 96 [degF] [facility] 02-24-2024 14:13-0400 Body weight 79.6 kg [facility] 02-24-2024 14:13-0400 Diastolic blood pressure 84 mm[Hg] [facility] 02-24-2024 14:13-0400 Heart rate 66 /min [facility] 02-24-2024 14:13-0400 Systolic blood pressure 159 mm[Hg] [facility] 12-20-2023 15:35-0400 Body height 154.94 cm [facility] 12-20-2023 15:35-0400 Body mass index (BMI) [Ratio] 33.8 kg/m2 [facility] 12-20-2023 15:35-0400 Body weight 81.19 kg [facility] 12-20-2023 15:35-0400 Diastolic blood pressure 80 mm[Hg] [facility] 12-20-2023 15:35-0400 Heart rate 78 /min [facility] 12-20-2023 15:35-0400 Respiratory rate 12 /min [facility] 12-20-2023 15:35-0400 Systolic blood pressure 134 mm[Hg] [facility] 04-29-2023 09:00-0500 Body height 154.94 cm Robert Ball Other [employer] Other 04-29-2023 09:00-0500 Body mass index (BMI) [Ratio] 33.14 kg/m2 Robert Ball Other [employer] Other 04-29-2023 09:00-0500 Body weight 79.56 kg Robert Ball Other [employer] Other 04-29-2023 09:00-0500 Diastolic blood pressure 89 mm[Hg] Robert Ball Other [employer] Other 04-29-2023 09:00-0500 Respiratory rate 12 /min Robert Ball Other [employer] Other 04-29-2023 09:00-0500 Systolic blood pressure 155 mm[Hg] Robert Ball Other [employer] Other 12-20-2022 13:45-0400 Body height 154.94 cm Robret Ball Other [employer] Other 12-20-2022 13:45-0400 Body mass index (BMI) [Ratio] 34.12 kg/m2 Robert Ball Other [employer] Other 12-20-2022 13:45-0400 Body weight 81.92 kg Robert Ball Other [employer] Other 12-20-2022 13:45-0400 Diastolic blood pressure 96 mm[Hg] Robert Ball Other [employer] Other 12-20-2022 13:45-0400 Respiratory rate 12 /min Robert Ball Other [employer] Other 12-20-2022 13:45-0400 Systolic blood pressure 179 mm[Hg] Robert Ball Other [employer] Other 08-04-2022 09:45-0400 Body height 154.94 cm Robert Ball Other [employer] Other 08-04-2022 09:45-0400 Body mass index (BMI) [Ratio] 33.33 kg/m2 Robert Ball Other [employer] Other 08-04-2022 09:45-0400 Body weight 80.02 kg Robert Ball Other [employer] Other 08-04-2022 09:45-0400 Diastolic blood pressure 77 mm[Hg] Robert [employer] Other [employer] Other 08-04-2022 09:45-0400 Respiratory rate 12 /min Robert [employer] Other [employer] Other 08-04-2022 09:45-0400 Systolic blood pressure 128 mm[Hg] Robert [employer] Other [employer] Other Encounters Encounter Date Encounter Type Care Provider Facility Start: 07-18-2024 End: 07-18-2024 ambulatory [facility] Work Phone: Start: 07-18-2024 End: 07-18-2024 Patient encounter procedure [facility] Work Phone: Start: 07-18-2024 Non-patient / Non-visit Community Health Physician [facility] [employer] Work Phone: Start: 07-13-2024 End: 07-13-2024 ambulatory [facility] Work Phone: Start: 07-13-2024 End: 07-13-2024 Patient encounter procedure [facility] Health Physician [facility] Work Phone: Start: 07-12-2024 Non-patient / Non-visit Community Health Physician [facility] [employer] Work Phone: Start: 07-11-2024 Non-patient / Non-visit Community Health Physician [facility] Work Phone: Start: 07-06-2024 End: 07-11-2024 Evaluation and management of inpatient Jose Sharif MD Work Phone: [facility]K Start: 07-04-2024 End: 07-04-2024 ambulatory [facility] Work Phone: Start: 07-04-2024 End: 07-04-2024 Encounter for other preprocedural examination [facility] Start: 07-04-2024 End: 07-04-2024 Patient encounter procedure [facility] Work Phone: Start: 06-27-2024 Non-patient / Non-visit Community Health Physician [facility] [employer] Work Phone: Start: 06-25-2024 End: 06-25-2024 ambulatory [facility] Work Phone: Start: 06-25-2024 End: 06-25-2024 Patient encounter procedure [facility] Work Phone: Start: 06-21-2024 ambulatory Raisa New PRICE Facility:[facility] Start: 06-01-2024 Non-patient / Non-visit Community Health Physician [facility] [employer] Work Phone: Start: 05-31-2024 Non-patient / Non-visit Community Health Physician [facility] [employer] Work Phone: Start: 04-09-2024 End: 04-09-2024 ambulatory Miriam Barron MD Facility: [facility] Start: 02-24-2024 End: 02-24-2024 ambulatory [facility] Work Phone: Start: 02-24-2024 End: 02-24-2024 Patient encounter procedure Community Health Physician [facility] Work Phone: Start: 02-22-2024 Non-patient / Non-visit Community Health Physician [facility] Work Phone: Start: 12-27-2023 Non-patient / Non-visit Community Health Physician [facility] [employer] Work Phone: Start: 12-20-2023 Patient encounter status [facility] Start: 12-20-2023 End: 12-20-2023 ambulatory [facility] Work Phone: Start: 12-20-2023 End: 12-20-2023 Patient encounter procedure Community Health Physician [facility] Work Phone: Start: 09-26-2023 End: 09-26-2023 ambulatory Miriam Barron MD Facility: [facility] Start: 08-15-2023 End: 08-15-2023 ambulatory Miriam Barron MD Facility: [facility] Start: 08-08-2023 End: 08-08-2023 ambulatory Miriam Barron MD Facility: [facility] Start: 06-27-2023 End: 06-27-2023 ambulatory Miriam Barron MD Facility: [facility] Start: 06-06-2023 End: 06-06-2023 ambulatory Miriam Barron MD Facility: [facility] Start: 06-01-2023 End: 06-01-2023 ambulatory Robert Villasenor Other [employer] Other Start: 06-01-2023 Telephone encounter Robert Kimble [facility] Start: 05-23-2023 End: 05-23-2023 ambulatory Miriam Barron MD Facility: [facility] Start: 05-13-2023 End: 05-13-2023 ambulatory Robert Villasenor Other [employer] Other Start: 05-13-2023 Telephone encounter Robert Kimble [facility] Start: 05-09-2023 End: 05-09-2023 ambulatory Robert Ball Other [employer] Other Start: 05-09-2023 Telephone encounter Robert Ball [facility] Start: 05-04-2023 End: 05-04-2023 ambulatory Robert Ball Other [employer] Other Start: 05-04-2023 Telephone encounter Robert Ball [facility] Start: 05-02-2023 End: 05-02-2023 ambulatory Robert Ball Other [employer] Other Start: 05-02-2023 Telephone encounter Robert Ball [facility] Start: 04-29-2023 End: 04-29-2023 ambulatory Robert Ball Other [employer] Other Start: 04-29-2023 Office outpatient vi sit 15 minutes Robert Ball [facility] Start: 04-04-2023 End: 04-04-2023 ambulatory Robert Ball Other [employer] Other Start: 04-04-2023 Telephone encounter Robert Ball [facility] Start: 01-24-2023 End: 01-24-2023 ambulatory Robert Ball Other [employer] Other Start: 01-24-2023 Telephone encounter Robert Ball [facility] Start: 12-23-2022 End: 12-23-2022 ambulatory Robert Ball Other [employer] Other Start: 12-23-2022 Telephone encounter Robert Ball [facility] Start: 12-20-2022 End: 12-20-2022 ambulatory Robert Ball Other [employer] Other Start: 12-20-2022 Office outpatient vi sit 15 minutes Robert Ball [facility] Start: 12-17-2022 End: 12-17-2022 ambulatory Robert Ball Other [employer] Other Start: 12-17-2022 Telephone encounter Robert Villasenor [facility] Start: 11-08-2022 End: 11-08-2022 ambulatory Robert Villasenor Other [employer] Other Start: 11-08-2022 Telephone encounter Robert Villasenor [facility] Start: 10-22-2022 End: 10-22-2022 ambulatory Robert Villasenor Other [employer] Other Start: 10-22-2022 Telephone encounter Robert Hamilton [facility] Start: 10-13-2022 End: 10-13-2022 ambulatory Robert Villasenor Other [employer] Other Start: 10-13-2022 Telephone encounter Robert Hamilton [facility] Start: 09-27-2022 End: 09-27-2022 ambulatory Robert Villasenor Other [employer] Other Start: 09-27-2022 Telephone encounter Robert Villasenor [facility] Start: 08-23-2022 End: 08-24-[address] RISHI PARKER Facility:[facility] Start: 08-04-2022 End: 08-04-2022 ambulatory Robert Villasenor Other [employer] Other Start: 08-04-2022 Office outpatient vi sit 25 minutes Robert Villasenor [facility] Start: 04-03-2022 Encounter for genera l adult medical examination without abnormal findings DR ROBERT VILLASENOR [facility] Start: 03-30-2022 End: 03-31-[address] ROBERT [...] Start: 07-03-2018 End: 07-03-2018 [facility] Start: 06-20-2018 End: 06-20-2018 Evaluation and management of inpatient [facility] Procedures Date Procedure Procedure Detail Performing Clinician [...] Dank Digrobbieo PA Work Phone: Start: 07-07-2024 Radiologic exam ches t 2 views Joes Sharif MD Work Phone: Start: 07-06-2024 Anion [...] 60 yrs+ (1 - 1-dose 75+ series) [facility] Start: 07-11-2025 GFR test (Diabetes, CKD 3-4, OR last GFR 15-59) GFR test (Diabetes, CKD 3-4, OR last GFR 15-59) [facility] Start: 04-25-2024 Annual Wellness Visi t (Medicare Advantage) Annual Wellness Visit (Medicare Advantage) [facility] Start: 12-25-2023 COVID-19 Vaccine ( season) COVID-19 Vaccine ( season) [facility] Start: 2014 Screening for osteoporosis DEXA (modify frequency per FRAX score) [facility] Start: 2009 Pneumococcal 50+ yea rs Vaccine (1 of 1 - PCV) Pneumococcal 50+ years Vaccine (1 of 1 - PCV) [facility] Start: 2009 Shingles vaccine (1 of 2) Shingles vaccine (1 of 2) [facility] Start: 2004 Screening for malign ant neoplasm of colon [facility] Start: 1999 Screening for malign ant neoplasm of breast Breast cancer screen [facility] Start: 1994 Diabetes screen Diabetes screen [facility] Start: 1989 Screening for malign ant neoplasm of cervix [facility] Start: 1980 Screening for malign ant neoplasm of cervix Pap smear [facility] Start: 1978 DTaP/Tdap/Td vaccine (1 - Tdap) DTaP/Tdap/Td vaccine (1 - Tdap) [facility] Start: 1977 Hepatitis C screening Hepatitis C sc reen [facility] Start: 1974 HIV screening HIV screen [facility] [employer] [place] Start: 1971 Depression Screen Depression Screen [facility] Start: 1969 Lipid panel Lipids [employer] End: 07-15-2024 Basic metabolic 2000 panel - Serum or Plasma Basic Metabolic Panel Lab Routine Daily for 1 Weeks starting 07/09/2024 until 07/15/2024, 3 completed [facility] Comment on above: Daily for [address] arting 07/09/2024 until 07/15/2024, 3 completed Comprehensive metabo lic 2000 panel - Serum or Plasma [facility] Glucose [Mass/volume ] in Serum or Plasma POCT Glucose Point of Care Testing STAT As Needed until discontinued starting 07/06/2024 [facility] Comment on above: As Needed until disc ontinued starting 07/06/2024 Glucose [Mass/volume ] in Serum or Plasma POCT glucose Point of Care Testing Routine 4X Daily (AC & HS) until discontinued starting 07/07/2024, 18 completed [facility] Comment on above: 4X Daily (AC & HS) u ntil discontinued starting 07/07/2024, 18 completed Glucose [Mass/volume ] in Serum or Plasma POCT Glucose Point of Care Testing STAT As Needed until discontinued starting 07/10/2024 [facility] Comment on above: As Needed until disc ontinued starting 07/10/2024 End: 07-15-2024 Hemoglobin and Hematocrit Hemoglobin and Hematocrit Lab Routine Daily for 1 Weeks starting 07/09/2024 until 07/15/2024, 3 completed [facility] Comment on above: Daily for [address] arting 07/09/2024 until 07/15/2024, 3 completed MG Breast - bilatera l Diagnostic [facility] Oxygen therapy [Mini [facility] Data Set] Initiate Oxygen Therapy Protocol Respiratory Care Routine As Needed until discontinued starting 07/08/2024 [employer] Comment on above: As Needed until disc ontinued starting 07/08/2024 Spirometry panel Incentive jesse metry Respiratory Care Routine Every 2hr while awake until discontinued starting 07/06/2024 [employer] Work Phone: Comment on above: Every 2hr while awak e until discontinued starting 07/06/2024 Spirometry panel Incentive jesse metry Respiratory Care Routine Every 2hr while awake until discontinued starting 07/08/2024 [employer] Comment on above: Every 2hr while awak e until discontinued starting 07/08/2024 [facility] Payers Date Payer Category Payer Unknown [id number] 2023 Unknown 2022 Blue Cross Blue Shield [id number] 2019 Unknown [id number] 2015 Unknown [id number] 1960 [facility] [id number] 1959 Unknown [id number] 2.16.840.1.413901.3.579.2.5 93 1959 Unknown [id number] 2.16.840.1.814458.3.579.2.5 93 1959 Unknown [id number] 2.16.840.1.529889.3.579.2.5 93 1959 Unknown [id number] 2.16.840.1.825909.3.579.2.5 93 1959 Unknown [id number] 2.16.840.1.887384.3.579.2.5 93 1959 Unknown [id number] 2.16.840.1.726674.3.579.2.5 93 1959 Unknown [id number] 2.16.840.1.969176.3.579.2.1 96 1959 Unknown [id number] 2.16.840.1.957959.3.579.2.1 96 1959 Unknown [id number] 2.16.840.1.077392.3.579.2.1 96 1959 Unknown [id number] 2.16.840.1.385109.3.579.2.1 96 1959 Unknown [id number] 2.16.840.1.040472.3.579.2.1 96 1959 Unknown [id number] 2.16.840.1.674719.3.579.2.1 96 1959 Unknown [id number] 2.16.840.1.679238.3.579.2.1 96 1959 Unknown [id number] 2.16.840.1.179662.3.579.2.7 27 1959 Unknown [id number] 2.16.840.1.715842.3.579.2.9 3 Medicare Medicare [id number] Unknown [id number] 2.16.840.1.143367.3.579.2.5 93 Unknown MMO [id number] Unknown [facility] PFFS [id number] Social History Date Type Detail Facility Start: 07-06-2024 Sex Assigned At [employer] Other Start: 1960 Sex Assigned At Female [facility] Tobacco smoking stat us NHIS Unknown if ever smoked [facility] Work Phone: Start: 06-25-2024 End: 07-18-2024 Sex Female (finding) [facility] Start: 07-06-2024 Tobacco smoking status NHIS Never smoked tobacco [facility] Start: 07-06-2024 Tobacco use and exposure Smokeless tobacco non-user [facility] Start: 07-09-2024 Alcoholic beverage intake Lifetime non-drinker (finding) [facility] Start: 07-06-2024 History of Social function [employer] Has the [employer], [employer], or water [employer] threatened to shut off services in your home in past 12Mo No [facility] (I/We) worried eladio er (my/our) food would run out before (I/we) got money to buy more. Never true [facility] In the past 12 month s, has lack of transportation kept you from medical appointments or from getting medications? No [facility] Start: 1960 Sex assigned at Not on file [facility] [facility] Medical Equipment Procedure Code Equipment Code Equipment Original Text Equipment Identifier Dates Screw Spnl L45mm Dia6.5mm Post Thoracolumbosacral Co Chrom - [id number] Start: 07-08-2024 Screw Spnl L40mm Dia6.5mm Post Thoracolumbosacral Co Chrom - [id number] Start: 07-08-2024 Set Scr Spnl L6m m Dia5.5mm Ti Brk Off Svetlana W/ Detach Cdh - [id number] Start: 07-08-2024 Evan Spnl L35mm D ia5.5mm Ant Post Thoracolumbosacral Ti - [id number] Start: 07-08-2024 Clinical Notes 08-04-2022 to [...] /SSI PT/OT SCD amlabs Jose Sharif MD, [facility] INPATIENT PHYSICAL THERAPY EVALUATION [facility] 7K - 7K-21/021-A Discharge Recommendations: Continue [...] or urinary incontinence. 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 Long-Term Goals Time Frame for Shoe Clerk Goals : NA due to short ELOS Following session, patient left in safe position with all fall risk precautions in place. Pt in bed following session, all needs and call light in reach, alarm on. [facility] ORTHOPEDICS 7 Occupational Therapy Daily Note Discharge Recommendations: Home with Home Health OT Equipment Recommendations: No Monitor need for LHAE. Time In: 0800 Time Out: 827 Timed Code Treatment Minutes: 28 Minutes Minutes: 28 Date: 07/10/2024 Patient Name: Carroll Fuentes, Gender: female Room: [facility]21/021-A : 1960 (64 y.o.) Referring Practitioner: Dank [...] or urinary incontinence. She was evaluated at [facility], she had an MRI of the [...] Entrance Stairs - Number of Steps: 2 AZCH Home Equipment: Walker - Rolling, Cane, Wheelchair [...] injury in the past year?: Yes Active Stereotype Caster: Yes Occupation: Retired SUBJECTIVE: Patient seated in bedside chair upon arrival; agreeable to therapy this date. Patient pleasant and cooperative throughout session. PAIN: 10/02: Vitals: Vitals not assessed per clinical judgement, see nursing flowsheet COGNITION: WFL ADL: Grooming: Modified Independent. Hair care seated in bedside chair Upper Extremity Dressing: Minimal Assistance. Carroll/doff house robe Lower Extremity Dressing: Minimal Assistance. With computer programming supervisor in order to carroll/doff hospital shorts with verbal/visual cues to complete, demonstrating good understanding. Footwear Management: Supervision, X 1, with verbal cues , and with increased time for completion. Utilized computer programming supervisor/sock aid in order to doff/carroll B socks [...] demonstrate appropriately throughout session. Functional Outcome Measures: [facility] Inpatient Daily Activity Raw Score: 19 [...] indep within home environment. Additional Goals?: No Shoe Clerk Goals Time Frame for Shoe Clerk Goals : No LTGs d/t short estimated length of stay. Following session, patient left in safe position with all fall risk precautions in place. Cosigned by Angela Dawkins OT at 07/10/2024 8:57 AM EDT Department [...] Intake/Output Summary (Last 24 hours) at 07/10/2024 0738 Last data filed at 07/10/2024 0654 Gross [...] in am PT/OT Jose Sharif MD, MD [facility] PHYSICAL THERAPY MISSED TREATMENT NOTE [facility] 7K Date: 07/09/2024 Patient Name: Carroll Fuentes : 1960 (64 y.o.) Gender: female REASON FOR MISSED TREATMENT: Missed Treat. Attempted x3 today. 1st attempt, pt with tech on BSC and then requesting to eat breakfast. 2nd attempt, OT with pt. 3rd attempt, manager of case management in room to complete assessment. [facility] INPATIENT OCCUPATIONAL THERAPY [facility] 7K EVALUATION Discharge Recommendations: Continue to assess pending progress, Home with Home health OT Equipment Recommendations: No Monitor need for LHAE. Time In: 09 Time Out: 1016 Timed Code Treatment Minutes: [...] or urinary incontinence. She was evaluated at [facility], she had an MRI of the [...] from [facility] today. Pain: /10: Back Vitals: Vitals not assessed per clinical [...] injury in the past year?: Yes Active Stereotype Caster: Yes Occupation: Retired VISION:Corrected HEARING: WFL COGNITION: [...] treatment: Good treatment tolerance Functional Outcome Measures: AM-[facility] Inpatient Daily Activity Raw Score: 17 Modified Holly: Premorbid Functional Status: Not Applicable Current Functional [...] indep within home environment. Additional Goals?: No Long-Term Goals Time Frame for Shoe Clerk Goals : No LTGs d/t short estimated length of stay. AM-[facility] Inpatient Daily Activity Raw Score: 17 AM-[facility] Inpatient ADL T-Scale Score : 37.26 Following [...] 4: Discharge Planning: pending Berny Lewis PA-C 183 pt arrived to pacu, awakens to voice. Respirations unlabored on 2L NC. Sites CDI with [address] VSS. Pt states pain 6/10 at this time, medicated by [facility] [employer] [facility] 1840 pt resting, resp easy. VSS 1849 pt awakens to voice, states pain 5/10 and tolerable. VSS 0 c/o pain 7/10, medicated with 50 mcg fentanyl 1904 no change in pain status, medicated with 50 mcg fentanyl 1910 pt resting, resp easy. VSS 1914 pt resting, resp easy. VSS 1925 pt meets criteria for discharge from pacu at this time. Pt transported to [facility] in stable condition Patient to OR [...] MD, Spiritual Health History and Assessment/Progress Note [facility] (P) Initial Encounter, , , Name: Carroll Fuentes Age: 64 y.o. Sex: female Language: Russian Mu-Ism: Episcopalian Intractable back pain Date: 07/07/2024 Total Time Calculated: (P) 14 min Spiritual Assessment began in [facility] 7K Referral/Consult From: (P) Nurse Encounter [...] and how she loves everything about the religious. Patient finds peace and hope in her liliane as a bahai and desires to have sacrament of the sick by a sales operations, before her surgery tomorrow afternoon. I told the patient that I will let the spiritual care team know. Offered patient words of encouragement, quoted Scripture, and prayed with the patient, at her request. Patient expressed gratitude. Made patient aware of drug enforcement agent availability and support. Patient Interventions include: Facilitated expression of thoughts and feelings, Explored spiritual coping/struggle/distress, Affirmed coping skills/support systems, and Provided sacramental/anabaptist ritual Family/Friends Interventions include: No family/friends present Patient Plan of Care: Contact Liliane assistant community director for support or sacramental needs Family/Friends Plan of Care: No family/friends present documented in this encounter [facility] 07-11-2024 Hospital Discharge instructions Bhavani Anderson [...] All vegetables, especially asparagus, pruitt sprouts, broccoli, [place] sprouts, cabbage, carrots, cauliflower, celery, corn, greens, [...] taking more than one drug. This includes [id number] medication and herb or dietary supplements. Plan [...] possible side effects documented in this encounter [facility] 07-08-2024 Note PROCEDURE: XR LUMBAR SPINE [...] loss of vertebral body height is seen. [facility] 07-08-2024 Note PROCEDURE: XR LUMBAR SPINE 1 [...] by: Sivakumar Betts MD 07/08/[address] [facility] 06-25-2024 Evaluation note Diagnosis Onset Date Resolution Cervical spondylosis acute Gerald 2024 10:04am Hypertension acute June 25, 2 025 10:04am Hx of fusion of cervical spine resolved June 25, 2024 10:04am Cervical pain deleted June 25, 2024 10:04am Hypercholesterolemia acute Gerald h 2024 2:57pm Hypertension acute July 04, 2024 2:57pm Hypothyroid acute July 04, 025 2:57pm STEPHANIE (obstructive sleep apnea) acute July 04, 2024 2:57pm Type 2 diabetes mellitus with hyperglycemia acute July 04, 025 2:57pm Preop exam for internal medicine noneactive July 04, 2024 2:57pm [facility] Work Phone: 1(621) 680-193703-03-2025 Evaluation note* Diagnosis Onset Date Resolution Status [...] h hyperglycemia acute July 04, 2024 2:57pm [facility] Work Phone: 1(432) 699-348703-03-2025 Evaluation note* Diagnosis Onset Date Resolution Status [...] h hyperglycemia acute July 04, 2024 2:57pm Acute blood loss anemia acute 2024 9:25am Central stenosis of spinal canal acu te July 13, 2024 9:25am Herniated intervertebral dis c of lumbar spine acute July 13, 2024 9:25am Hypotension due to hypovolemia acute July 13, 2024 9:25am Type 2 diabetes mellitus wit h hyperglycemia acute July 13, 2024 9:25am Acute blood loss anemia acute M 2024 10:08am Adverse effect of mixed sedatives acute July 18, 2024 10:08am Central stenosis of spinal canal acu te July 18, 2024 10:08am Herniated intervertebral dis c of lumbar spine acute July 18, 2024 10:08am Hypotension due to hypovolemia acute July 18, 2024 10:08am Type 2 diabetes mellitus wit h hyperglycemia acute July 18, 2024 10:08am Visual hallucinations acute Jun 10:08am [facility] Work Phone: 1(383) 137-167002-07-2024 Evaluation note* Encounter Date Diagnosis Assessment Notes Treatment Notes Treatment Clinical Notes May, Autoimmune thyroiditis (ICD-10 - E06.3) May, Elevated cholesterol (ICD-10 - E78.00) May, Type 2 diabetes mellitus with hyperglycemia, without long-term current use of insulin (ICD-10 - E11.65) May, Primary hypertension (ICD-10 - I10) May, Intractable chronic migraine without aura and without status migrainosus (ICD-10 - G43.719) [employer] Other 01-15-2024 Evaluation note* Encounter Date Diagnosis Assessment Notes Treatment Notes Treatment Clinical Notes Apr, Intractable chronic migraine without aura and without status migrainosus (ICD-10 - G43.719) [employer] Other 01-08-2024 Evaluation note* Encounter Date Diagnosis Assessment Notes Treatment Notes Treatment Clinical Notes Apr, Intractable chronic migraine without aura and without status migrainosus (ICD-10 - G43.719) [employer] Other 01-05-2024 Evaluation note* Encounter Date Diagnosis [...] Begin Amitriptyline Stop Tizanidine. MRI cervical spine [employer] Other 08-31-2023 Evaluation note* Encounter Date Diagnosis Assessment Notes Treatment Notes Treatment Clinical Notes Nov, Primary hypertension (ICD-10 - I10) [employer] Other 08-28-2023 Evaluation note* Encounter Date Diagnosis Assessment Notes Treatment Notes Treatment Clinical Notes Nov, Adverse effect of smooth muscle relaxant, subsequent encounter (ICD-10 - T44.3X5D) Avoid combination of Klonopin and Zanaflex when scheduled environmental projects advisor. May want to cut back on Zanaflex. [...] Pain in left shoulder (ICD-10 - M25.512) [employer] Other 06-30-2023 Evaluation note* Encounter Date Diagnosis Assessment Notes Treatment Notes Treatment Clinical Notes Sep, Type 2 diabetes mellitus with hyperglycemia, without long-term current use of insulin (ICD-10 - E11.65) [employer] Other 06-05-2023 Evaluation note* Encounter Date Diagnosis Assessment Notes Treatment Notes Treatment Clinical Notes Sep, Candidiasis, intertriginous (ICD-10 - B37.2) [employer] Other 04-12-2023 Evaluation note* Encounter Date Diagnosis [...] Jul, Other specified hypothyroidism (ICD-10 - E03.8) [employer] Other Evaluation noteNo [employer] Other Evaluation noteNo assessment information available [facility] Work Phone: Evaluation note* Diagnosis Onset Date Resolution Status Cervical pain acute Cervical spondylosis acute Cervical pain acute Cervical spondylosis acute Painful lumpy right breast a cute [facility] Work Phone: Evaluation note* Diagnosis Intractable back pain- Primary Backache, unspecified Spinal stenosis of lumbar region with neurogenic claudication Spinal stenosis, lumbar region, with neurogenic claudication Primary hypertension Unspecified essential hypertension Type 2 diabetes mellitus, without long-term current use of insulin ([facility]) documented in this encounter [facility] general Narrative - Reported* Type Description [...] CATHETERIZATION 2016 Hospitalization History SEE SURIGCAL HX [employer] Other Hissz[facility] general Narrative - Reported* Type Description Date [...] arthroscopy 10/2022 Hospitalization History SEE SURIGCAL HX [employer] Other Reason for referral (narrative)* Reason Evaluation of right knee pain Diagnosis 1 Strain of right knee , subsequent encounter (S86.099U) Referral Organization [facility] bhupinder Referring Provider First Name Robert Referring Provider Last Name Hamilton Referring Provider Specialty Internal Me yoni Referred Provider Rishi Parker Jr Referred Provider Specialty Orthopedic S urgery Referral Priority Routine [employer] Other Rezhvb for referral (narrative)* Reason Referral for neck pa in Diagnosis 1 Cervicalgia (M54.2) Diagnosis 2 Cervical spondylosis (M47.812) Referral Organization [facility] [employer] bhupinder Referring Provider First Name Robert Referring Provider Last Name Hamilton Referring Provider Specialty Internal La dicine Referred Organization [facility] Referred Address [address] [place], [place],[address] Referred Provider Specialty Pain Medicin e Referral Priority Routine General Notes Patient has hx of ce rvical discectomy and fusion and presented w/ persistent neck pain, which radiated upwards causing a headache. She is being referred for treatment with the pain clinic. Clinical Notes Include MRI [employer] Other Recklx for visit Narrative* Auth/Cert Specialty Diagnoses / Procedures Referred By Jass adams Referred To Contact Diagnoses Intractable back pain large disc herniation Jose Sharif MD [address] [place] [address] Phone: tel: fax: [facility] [address] [place] [address] Referral ID Status Reason Start Date Expiration Date Visits Re quested Visits Authorized [id number] 1 1 Keith Green [facility] Summary Purpose Family History Relationship Condition Age [...] with hyperglyce dion July 04, 2024 2:57pm Chief Complaint Admit Date bp concerns June 25, 2024 10:0 4am Pre-Surgical Clearance; [facility] f/u back megan n July 04, 2024 2:57pm Amb Documentation July 11, 2024 8:5 1am BP concerns, pale, dizziness July 13, 2024 9:25am [facility] f/u, spinal stenosis, lumbar reg ion July 18, 2024 10:08am Reason for Visit Admit Date Cervical spondylosis [...] with hyperglyce dion July 04, 2024 2:57pm Acute blood loss anemia July 13, 2024 9:25am Central stenosis of spinal canal June 242024 9:25am Herniated intervertebral disc of lumbar spine July 13, 2024 9:25am Hypotension due to hypovolemia June 9:25am Type 2 diabetes mellitus with hyperglyce dion July 13, 2024 9:25am Acute blood loss anemia July 18, 2024 10:08am Adverse effect of mixed sedatives July 18, 2024 10:08am Central stenosis of spinal canal June 242024 10:08am Herniated intervertebral disc of lumbar spine July 18, 2024 10:08am Hypotension due to hypovolemia June 10:08am Type 2 diabetes mellitus with hyperglyce dion July 18, 2024 10:08am Visual hallucinations July 18, 2024 1 0:08am Additional Source Comments INFORMATION SOURCE (unrecogn ized section and content) DATE CREATED AUTHOR 06/20/2018 [facility] DATE CREATED AUTHOR AUTHOR'S ORGANIZ ATION [facility]04[facility] DATE CREATED AUTHOR AUTHOR'S ORGANIZ ATION 09/18/2020 [facility] DATE CREATED AUTHOR AUTHOR'S ORGANIZ ATION 08/27/2022 [facility] DATE CREATED AUTHOR AUTHOR'S ORGANIZ ATION 04/18/2024 [facility] DATE CREATED AUTHOR AUTHOR'S ORGANIZ ATION 06/23/2024 Trevor Crabtree [facility] ical Center DATE CREATED AUTHOR AUTHOR'S ORGANIZ ATION [facility]11/20[facility] REASON FOR VISIT (unrecogniz ed [...] Status: Inactive Member Role Status Dates Robert Villasenor DO Primary Care Provide r, Attending Provider Active Start: June 25, 2024 End: June 25, 2024 Team Status: Active Member Role Status Dates Robert Villasenor DO Primary Care Provide r, Attending Provider Active Start: June 27, 2024 Team Status: Inactive Member Role Status Dates Robert Villasenor DO Primary Care Provide r, Attending Provider Active Start: July 04, 2024 End: July 04, 2024 Instructional Supervisor Relationship Specialty Start Date End Date Robert Villasenor DO [address] [place] [address] PCP - General Internal Medicine 07/06/24 Team [...] Status: Inactive Member Role Status Dates Robert Villasenor DO Primary Care Provide r, Attending Provider Active Start: July 13, 2024 End: July 13, 2024 Team Status: Active Member Role Status Hakeem Villasenor DO Primary Care Provide r, Attending Provider Active Start: July 18, 2024 Team Status: Inactive Member Role Status Hakeem Villasenor DO Primary Care Provide r, Attending Provider Active Start: July 18, 2024 End: July 18, 2024 Goals (unrecognized section and content) Goals [...] Post-op 0105 (Given - Provider: Bijal Zavala RN)0755 (Given - Provider: Irma Villagomez RN) citalopram (CELEXA) tablet 20 mg 20 mg, Oral, DAILY, First dose on 07/07/24 at 0900, Until Discontinued 0755 (Given - Provider: Irma Villagomez RN) 0843 (Given - Provider: Bhavani Anderson RN) 0843 (Given - Provider: Bhavani Anderson RN) clonazePAM (KLONOPIN) tablet 1 mg 1 mg, Oral, NIGHTLY, First dose on Tue07/06/24 at 2200, Until Discontinued 2001 (Given - Provider: Sommer Alcala RN) 2055 (Given - Provider: Chrissy Cuellar, FLETCHER) 2099 (Due) gabapentin (NEURONTIN) capsule 200 mg 200 mg, Oral, 2 TIMES DAILY, First dose on Tue07/07/24 at 1000, Until Discontinued 0755 (Given - Provider: Irma Villagomez RN)2001 (Given - Provider: Sommer Alcala RN) 08 (Given - Provider: Bhavani Anderson RN)2055 (Given - Provider: Chrissy Cuellar, FLETCHER) 08 (Given - Provider: Bhavani Anderson RN)2099 (Due) glipiZIDE (GLUCOTROL) tablet 10 mg 10 [...] Villagomez RN - Reason: Order parameters not met)2003 (Given - Provider: Sommer Alcala RN) 0843 (Given - Provider: Bhavani Anderson, FLETCHER)1105 [...] Zavala RN) 0533 (Given - Provider: Sommer Alcala RN) 0634 (Given - Provider: Chrissy Cuellar, FLETCHER) lisinopril (PRINIVIL;ZESTRIL) tablet 5 mg 5 mg, Oral, DAILY, First dose on Tue07/06/24 at 2014, Until Discontinued, On hold since Tue07/10/2024 at [...] hot or room temperature) then drink, Post-op 075 (Given - Provider: Irma Villagomez RN) 0843 [...] FLETCHER)2055 (Given - Provider: Chrissy Cuellar, FLETCHER) 0840 (Not Given - Provider: Bhavani [...] over 121 Minutes, ONCE, On Tue07/10/24 at 2015, For 1 dose 2024 (New Bag - Provider: Chrissy Cuellar RN)2226 (Stopped - Provider: Chrissy Cuellar RN) sodium [...] 10 g, Oral, ONCE, 1 dose, On 07/09/24 at 0800, Empty entire contents of the [...] IntraVENous, at 125 mL/hr, CONTINUOUS, Starting on 07/08/24 at 2015, Post-op 1025 (Stopped - Prov ider: Bhavani Anderson RN) PRN Medication Order 07/09/2024 07/10/2024 07/11/2024 0.9 % sodium chloride infusion IntraVENous, at 5-250 mL/hr, PRN, if patient receiving piggyback infusions and maintenance fluids are not ordered OR KVO fluids to protect IV site / prevent frequent line interruptions/ long duration, Starting on 07/08/24 at 1950, For piggyback infusion, administer at [...] spasms, Post-op 0442 (Given - Provider: Bijal Zavala RN)1302 (Given - Provider: Irma Villagomez RN)2130 (Given - Provider: Sommer Alcala, FLETCHER) 0533 (Given - Provider: Sommer Alcala, FLETCHER)1702 (Given - Provider: Bhavani Anderson RN) 0843 (Given - Provider: Bhavani Anderson [...] for injection by adding 1 mL of caving guide-supplied sterile diluent or sterile water for injection [...] 4 HOURS PRN, Starting on Tue07/06/24 at 1952, Until Discontinued, SBP > 160 HYDROcodone-acetaminophe n (NORCO) 5-325 MG per tablet 1 tablet(Linked Group 3) 1 tablet, Oral, EVERY 4 HOURS PRN, Starting on Tue07/06/24 at 1953, Until Discontinued, Pain Moderate (4-6), allowed for [...] Alcala RN)0944 (See Alternative - Provider: Bhavani Anderson, FLETCHER)1555 (See Alternative - Provider: Bhavani Anderson, FLETCHER)2056 (See Alternative - Provider: Chrissy Cuellar RN) 0353 (Given - Provider: Chrissy Cuellar RN)0843 (See Alternative - Provider: Bhavani Anderson, FLETCHER) HYDROcodone-acetaminophe n (NORCO) 5-325 MG per tablet 2 tablet(Linked Group 3) 2 tablet, Oral, EVERY 4 HOURS PRN, Starting on Tue07/06/24 at 1953, Until Discontinued, Pain Severe (7-10), Maximum dose of acetaminophen is 4000 mg from all sources in 24 hours. 0442 (Given - Provider: Bijal Zavala RN)0853 (Given - Provider: Irma Villagomez RN)1302 (Given - Provider: Irma Villagomez RN)1724 (Given - Provider: Irma Villagomez, FLETCHER)2130 (Given - Provider: Sommer Alcala, FLETCHER) 0134 (See Alternative - Provider: Sommer Alcala, FLETCHER)0532 (Given - Provider: Sommer Alcala RN)0944 (Given - Provider: Bhavani Anderson, RN)1555 (Given - Provider: Bhavani Anderson, RN)2056 (Given - Provider: Chrissy Cuellar, RN) 0353 (See Alternative - Provider: Chrissy Cuellar, FLETCHER)0843 (Given - Provider: Bhavani Anderson, FLETCHER) magnesium hydroxide (MILK OF MAGNESIA) 400 MG/5ML suspension 30 mL 30 mL, Oral, DAILY PRN, Starting on 07/08/24 at 1950, Until Discontinued, Constipation, First line therapy for constipation., Post-op 0420 (Given - Provider: Sommer Alcala, FLETCHER) magnesium sulfate 2000 mg in 50 mL [...] each other unless specifically ordered., Post-op 0656 (Given - Provider: Bijal Zavala RN)110 (See Alternative - Provider: Irma Villagomez, FLETCHER) [...] Bijal Zavala RN)110 (Given - Provider: Irma Villagomez, FLETCHER) morphine injection 4 mg(Linked Group 5) 4 [...] mEq, Oral, PRN, Starting on Tue07/06/24 at 194, Until Discontinued, Potassium Replacement, May give alternative [...] at 1950, Until Tue07/09/24 at 194, Pain Moderate (4-6), allowed for higher pain [...] Oral, EVERY 8 HOURS PRN, Starting on 07/08/24 at 1950, Until Discontinued, Nausea, Vomiting, Post-op Or ondansetron (ZOFRAN) injection 4 mgJump to med 4 mg, IntraVENous, EVERY 6 HOURS PRN, Starting on 07/08/24 at 1950, Until Discontinued, Nausea, Vomiting, Administer [...] BE BASED ON THE PRIMARY CLINICAL RECORDS. [employer] provides no warranty or guarantee of the accuracy or completeness of information in this document.
[2024-07-24 10:58] VITALS: BP 181/78; PULSE 63; O2SAT 96
[2024-07-24] MEDS: MORPHINE SULFATE 4 MG/ML VIAL 10 MG IM (11:02)
== END 2024-07-24 11:14 | disposition home or self-care (01) ==
PROVIDERS: Emergency Provider Emergency Medicine; PCP Internal Medicine
DX: M54.16 Radiculopathy, lumbar region (principal); R20.2 Paresthesia of skin; Z98.890 Other specified postprocedural states; Z91.81 History of falling; I80.01 Phlebitis and thrombophlebitis of superficial vessels of right lower extremity; Z90.710 Acquired absence of both cervix and uterus; Z90.49 Acquired absence of other specified parts of digestive tract; M51.369 Other intervertebral disc degeneration, lumbar region without mention of lumbar back pain or lower extremity pain; R53.1 Weakness
CPT/HCPCS: 72131; 93971; 96372; 99284; J2270

== ENCOUNTER 2024-07-27 09:21 | Outpatient (OUT) | payer OTHER, SELFPAY ==
--- NOTE | 2024-07-27 09:22 | XR_ITS ---
The [address] [address] Patient Name: CARROLL HARDEN MRN: [id number] date: 1960 Sex: F Assigned Patient Location: Current Patient Location: Accession/Order Number: [id number] Exam Date: 07/27/2024 09:47 Report Date: 07/27/2024 09:51 At the request of: DILEEP LUNA MD Procedure: XR lumbar spine 2-3V LUMBAR SPINE - 2 views COMPARISON: CT 07/24/2024 CLINICAL DATA: Low back pain radiating to the right leg with weakness. Recent back surgery and fall. AP and lateral standing views were obtained. There is prior laminectomy extending from L3 through L5. There is also fusion with posterior rods and pedicle screws at L4-5. The hardware appears intact and in appropriate position. No acute compression fractures are identified. There is continued slight retrolisthesis of L5 with respect to adjacent vertebra. There is slight disc space narrowing at L4-5. There are tiny endplate spurs. Facet hypertrophy is seen. The SI joints are intact. There are no paraspinal soft tissue abnormalities. XR/XR lumbar spine 2-3V IMPRESSION: POSTOPERATIVE AND DEGENERATIVE CHANGES, NOT SIGNIFICANT CHANGE FROM THE PRIOR WHEN ALLOWING FOR DIFFERENCES IN MODALITY. NO ACUTE BONY INJURY. Impression dictated by: Frannie Armenta M.D.07/27/2024 9:51 AM Dictation Location: [place] [address] Electronically authenticated by: [id number] Y Date: 07/27/2024 09:51
== END 2024-07-27 09:22 | disposition home or self-care (01) ==
LOC: EC 09:21
PROVIDERS: PCP Internal Medicine; Visit Provider Orthopaedic Surgery Orthopaedic Surgery of the Spine
DX: M54.50 Low back pain, unspecified (principal); M51.369 Other intervertebral disc degeneration, lumbar region without mention of lumbar back pain or lower extremity pain
CPT/HCPCS: 72100

== ENCOUNTER 2024-08-02 14:01 | Outpatient (RCR) | payer OTHER, SELFPAY | END 2024-10-05 08:45 | disposition home or self-care (01) | LOC: PT 14:01 | PROVIDERS: PCP Internal Medicine; Visit Provider Orthopaedic Surgery Orthopaedic Surgery of the Spine | DX: M54.59 Other low back pain (principal); Z47.89 Encounter for other orthopedic aftercare | CPT/HCPCS: 97110; 97112; 97161 ==

== ENCOUNTER 2024-09-14 08:29 | Outpatient (OUT) | payer OTHER, SELFPAY ==
--- OUTSIDE RECORDS SUMMARY | 2024-07-06 19:08 | XMS_ITS ---
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 Name Role Phone Anderson HENLEY, Miriam Stephenson Attending Unavailable Anderson HENLEY, Miriam Stephenson Attending Unavailable SHIRA, OLUREMI Renea Admitting Unavailable SHIRA, OLUREMI A Attending Unavailable PAY, REBECA Guerrero Referring Unavailable MICA VILLASENOR Primary Care Unavailable DILEEP LUNA Consulting Unavailable Raisa PRICE Attending Unavailable PROBLEMS DATE TYPE CONDITION / CODE ATTENDING STATUS [facility] 07/06/2024 Admitting diagnosis Dorsalgia, unspecified / M54.9(ICD-10) SHIRA, OLUREMI A Active [facility] 07/06/2024 Admitting diagnosis Spinal stenosis, lumbar region with neurogenic claudication / M48.062(ICD-10) SHIRA, OLUREMI A Active [facility] PROCEDURES No Procedure Records Found RESULTS HGB,HCT Collected: 5 6:43 AM Status: F Source: [facility] TYPE CODE TESTS RESULT OUT OF RANGE REFERENCE UNITS LAB HGB(LOINC) HEMOGLOBIN 10.8 Low 12.0-16.0 gm/dl LAB HCT(LOINC) HEMATOCRIT 33.4 Low 37.0-47.0 % Performed By: #### ANION, HH , BMP, EGFR1 #### [facility] [address] [place] [address] BASIC METABOL PANEL Collected: 07/12/19 25 6:43 AM Status: F Source: [facility] TYPE CODE TESTS RESULT OUT OF RANGE REFERENCE UNITS LAB NAP(LOINC) SODIUM 135 135-145 meq/L LAB KP(LOINC) POTASSIUM 4.7 3.5-5.2 meq/L Result Comment: Low level sp ecimen hemolysis is present as indicated by the interference index on the Yamilet analyzer. ??The reported K+ level may be falsely increased. If clinically warranted, recollection of the specimen is suggested. LAB CLP(LOINC) CHLORIDE 103 98-111 meq/L LAB CO2P(LOINC) CO2 22 22-29 meq/L LAB GLUP(LOINC) GLUCOSE 166 High 74-109 mg/dL LAB BUN(LOINC) BUN 16 8-23 mg/dL LAB CRE(LOINC) CREATININE 1.0 High 0.5-0.9 mg/dL LAB CAP(LOINC) CALCIUM 8.9 8.8-10.2 mg/dL Performed By: #### ANION, HH , BMP, EGFR1 #### [facility] [address] [place] [address] ANION GAP Collected: 6:43 AM Status: F Source: [facility] TYPE CODE TESTS RESULT OUT OF RANGE REFERENCE UNITS LAB ANION(LOINC) ANION GAP 10.0 8.0-16.0 meq/L Result Comment: ANION GAP = Sodium -(Chloride + CO2) Performed By: #### ANION, HH , BMP, EGFR1 #### [facility] [address] [place] [address] GFR, ESTIMATED Collected: 07/11/2024 6:43 AM Status: F Source: [facility] TYPE CODE TESTS RESULT OUT OF RANGE REFERENCE UNITS LAB GFR4(LOINC) ESTIMATED GFR 62 >60 ml/min /1. 73m2 Result Comment: Pediatric ca lculator link [email or web address] Effective Jan 25, 2022 These results are not intended for use in patients <18 years of age. eGFR results are calculated without a race factor using the 2020 CKD-EPI equation. Careful clinical correlation is recommended, particularly when comparing to results calculated using previous equations. The CKD-EPI equation is less accurate in patients with extremes of muscle mass, extra-renal metabolism of creatinine, excessive creatine ingestion, or following therapy that affects renal tubular secretion. Performed By: #### ANION, HH , BMP, EGFR1 #### [facility] [address] [place] [address] GLUCOSE POC Collected: 5 6:23 AM Status: F Source: [facility] TYPE CODE TESTS RESULT OUT OF RANGE REFERENCE UNITS LAB POCGL(LOINC) GLUCOSE POC 177 High 70-108 mg/dl Performed By: #### POCGL ### # [address] [address] GLUCOSE POC Collected: 5 8:18 PM Status: F Source: [facility] TYPE CODE TESTS RESULT OUT OF RANGE REFERENCE UNITS LAB POCGL(LOINC) GLUCOSE POC 267 High 70-108 mg/dl Performed By: #### POCGL ### # [address] [address] GLUCOSE POC Collected: 5 3:59 PM Status: F Source: [facility] TYPE CODE TESTS RESULT OUT OF RANGE REFERENCE UNITS LAB POCGL(INC) GLUCOSE POC 154 High 70-108 mg/dl Performed By: #### POCGL ### # [address] [address] GLUCOSE POC Collected: 5 10:57 AM Status: F Source: [facility] TYPE CODE TESTS RESULT OUT OF RANGE REFERENCE UNITS LAB POCGL([facility]) GLUCOSE POC 302 High 70-108 mg/dl Performed By: #### POCGL ### # [address] [address] HGB,HCT Collected: 5 6:58 AM Status: F Source: [facility] TYPE CODE TESTS RESULT OUT OF RANGE REFERENCE UNITS LAB HGB(LOINC) HEMOGLOBIN 10.0 Low 12.0-16.0 gm/dl LAB HCT(LOINC) HEMATOCRIT 32.2 Low 37.0-47.0 % Performed By: #### BMP, ANIO N, EGFR1, HH #### [address] [address] BASIC METABOL PANEL Collected: 07/11/19 25 6:58 AM Status: F Source: [facility] TYPE CODE TESTS RESULT OUT OF RANGE REFERENCE UNITS LAB NAP(LOINC) SODIUM 135 135-145 meq/L LAB KP(LOINC) POTASSIUM 4.6 3.5-5.2 meq/L LAB CLP(LOINC) CHLORIDE 101 98-111 meq/L LAB CO2P(LOINC) CO2 26 22-29 meq/L LAB GLUP(LOINC) GLUCOSE 198 High 74-109 mg/dL LAB BUN(LOINC) BUN 24 High 8-23 mg/dL LAB CRE(LOINC) CREATININE 1.1 High 0.5-0.9 mg/dL LAB CAP(LOINC) CALCIUM 8.8 8.8-10.2 mg/dL Performed By: #### TATUM ANIO N, EGFR1, #### [facility] [address] [place] [address] ANION GAP Collected: 5 6:58 AM Status: F Source: [facility] TYPE CODE TESTS RESULT OUT OF RANGE REFERENCE UNITS LAB ANION(LOINC) ANION GAP 8.0 8.0-16.0 meq/L Result Comment: ANION GAP = Sodium -(Chloride + CO2) Performed By: #### MATTIE WINN N, EGFR1, #### [facility] [address] [place] [address] GFR, ESTIMATED Collected: 5 6:58 AM Status: F Source: [facility] TYPE CODE TESTS RESULT OUT OF RANGE REFERENCE UNITS LAB GFR4(LOINC) ESTIMATED GFR 56 Abnormal >60 ml/mi n/1. 73m2 Result Comment: Pediatric ca lculator link [email or web address] Effective Jan 25, 2022 These results are not intended for use in patients <18 years of age. eGFR results are calculated without a race factor using the 2020 CKD-EPI equation. Careful clinical correlation is recommended, particularly when comparing to results calculated using previous equations. The CKD-EPI equation is less accurate in patients with extremes of muscle mass, extra-renal metabolism of creatinine, excessive creatine ingestion, or following therapy that affects renal tubular secretion. Performed By: #### TATUM ANIO N, EGFR1, #### [facility] [address] [place] [address] GLUCOSE POC Collected: 5 6:30 AM Status: F Source: [facility] TYPE CODE TESTS RESULT OUT OF RANGE REFERENCE UNITS LAB POCGL(LOINC) GLUCOSE POC 205 High 70-108 mg/dl Performed By: #### POCGL ### # New [address] [address] GLUCOSE POC Collected: 5 9:00 PM Status: F Source: [facility] TYPE CODE TESTS RESULT OUT OF RANGE REFERENCE UNITS LAB POCGL(LOINC) GLUCOSE POC 211 High 70-108 mg/dl Performed By: #### POCGL ### # New [address] [address] GLUCOSE POC Collected: 5 7:54 PM Status: F Source: [facility] TYPE CODE TESTS RESULT OUT OF RANGE REFERENCE UNITS LAB POCGL(LOINC) GLUCOSE POC 212 High 70-108 mg/dl Performed By: #### POCGL ### # [address] [address] GLUCOSE POC Collected: 5 4:03 PM Status: F Source: [facility] TYPE CODE TESTS RESULT OUT OF RANGE REFERENCE UNITS LAB POCGL(LOINC) GLUCOSE POC 169 High 70-108 mg/dl Performed By: #### POCGL ### # New [address] [address] GLUCOSE POC Collected: 5 11:05 AM Status: F Source: [facility] TYPE CODE TESTS RESULT OUT OF RANGE REFERENCE UNITS LAB POCGL(LOINC) GLUCOSE POC 229 High 70-108 mg/dl Performed By: #### POCGL ### # [address] [address] POTASSIUM Collected: 5 8:19 AM Status: F Source: [facility] TYPE CODE TESTS RESULT OUT OF RANGE REFERENCE UNITS LAB KP(LOINC) POTASSIUM 4.7 3.5-5.2 meq/L Performed By: #### KP #### [address] [address] GLUCOSE POC Collected: 5 6:15 AM Status: F Source: [facility] TYPE CODE TESTS RESULT OUT OF RANGE REFERENCE UNITS LAB POCGL(LOINC) GLUCOSE POC 203 High 70-108 mg/dl Performed By: #### POCGL ### # [address] [address] HGB,HCT Collected: 5:39 AM Status: F Source: [facility] TYPE CODE TESTS RESULT OUT OF RANGE REFERENCE UNITS LAB HGB(LOINC) HEMOGLOBIN 11.9 Low 12.0-16.0 gm/dl LAB HCT(LOINC) HEMATOCRIT 36.7 Low 37.0-47.0 % Performed By: #### BMP, EGFR 1, HH, ANION #### [facility] [address] [place] [address] BASIC METABOL PANEL Collected: 07/10/19 5:39 AM Status: F Source: [facility] TYPE CODE TESTS RESULT OUT OF RANGE REFERENCE UNITS LAB NAP(LOINC) SODIUM 136 135-145 meq/L LAB KP(LOINC) POTASSIUM 5.8 High 3.5-5.2 meq/L LAB CLP(LOINC) CHLORIDE 103 98-111 meq/L LAB CO2P(LOINC) CO2 23 22-29 meq/L LAB GLUP(LOINC) GLUCOSE 197 High 74-109 mg/dL LAB BUN(LOINC) BUN 21 8-23 mg/dL LAB CRE(LOINC) CREATININE 1.1 High 0.5-0.9 mg/dL LAB CAP(LOINC) CALCIUM 8.3 Low 8.8-10.2 mg/dL Performed By: #### BMP, EGFR 1, HH, ANION #### [facility] [address] [place] [address] ANION GAP Collected: 5 5:39 AM Status: F Source: [facility] TYPE CODE TESTS RESULT OUT OF RANGE REFERENCE UNITS LAB ANION(LOINC) ANION GAP 10.0 8.0-16.0 meq/L Result Comment: ANION GAP = Sodium -(Chloride + CO2) Performed By: #### BMP, EGFR 1, HH, ANION #### [facility] [address] [place] [address] GFR, ESTIMATED Collected: 5:39 AM Status: F Source: [facility] TYPE CODE TESTS RESULT OUT OF RANGE REFERENCE UNITS LAB GFR4(LOINC) ESTIMATED GFR 56 Abnormal >60 ml/mi n/1. 73m2 Result Comment: Pediatric ca lculator link [email or web address] Effective Jan 25, 2022 These results are not intended for use in patients <18 years of age. eGFR results are calculated without a race factor using the 2020 CKD-EPI equation. Careful clinical correlation is recommended, particularly when comparing to results calculated using previous equations. The CKD-EPI equation is less accurate in patients with extremes of muscle mass, extra-renal metabolism of creatinine, excessive creatine ingestion, or following therapy that affects renal tubular secretion. Performed By: #### BMP, EGFR 1, HH, ANION #### [facility] [address] [place] [address] GLUCOSE POC Collected: 5 8:44 PM Status: F Source: [facility] TYPE CODE TESTS RESULT OUT OF RANGE REFERENCE UNITS LAB POCGL([facility]) GLUCOSE POC 266 High 70-108 mg/dl Performed By: #### POCGL ### # [facility] [address] [place] [address] XR LUMBAR SPINE 1 VW Observed: 5 6:28 PM Status: F Source: [facility] PROCEDURE: XR LUMBAR SPINE 1 VW CLINICAL INFORMATION: surgery. L4-L5 fusion COMPARISON: Earlier examination from same day. TECHNIQUE: Lumbar spine single crossfire lateral intraoperative view FINDINGS: Single crossfire lateral intraoperative view of the lumbar spine was obtained. Posterior lumbar fusion hardware is demonstrated at the L4-5 region. The visualized surgical hardware appears grossly intact. The osseous framework appears satisfactory in alignment. No loss of vertebral body height is seen. IMPRESSION: 1. Evidence of posterior fusion at L4-L5. Please refer to operative report for further details. This report has been created using voice recognition software. It may contain minor errors which are inherent in voice recognition technology. Electronically signed by Dr. Jerrod Betts Interpreted by: Sivakumar Betts MD Signed by: Sivakumar Betts MD 07/08/24 Final result XR LUMBAR SPINE 1 VW Observed: 5 5:16 PM Status: F Source: [facility] MOBILE LATERAL LUMBAR SPINE: CLINICAL INFORMATION: surgery. L3-L5 decompression. L4-L5- fusion COMPARISON: No prior study. TECHNIQUE: A single lateral mobile view of the lumbar spine was obtained For localization purposes. FINDINGS: 2 spinal needles are present posteriorly directed at the L4 and L5 levels. IMPRESSION: Intraoperative appearance of the lumbar spine. This report has been created using voice recognition software. It may contain minor errors which are inherent in voice recognition technology. Electronically signed by Dr. Boo Headley Interpreted by: Boo Headley MD Signed by: Boo Headley MD 07/08/24 Final result GLUCOSE POC Collected: 5 3:37 PM Status: F Source: [facility] TYPE CODE TESTS RESULT OUT OF RANGE REFERENCE UNITS LAB POCGL(LOINC) GLUCOSE POC 120 High 70-108 mg/dl Performed By: #### POCGL ### # New [facility] [address] [address] GLUCOSE POC Collected: 10:54 AM Status: F Source: [facility] TYPE CODE TESTS RESULT OUT OF RANGE REFERENCE UNITS LAB POCGL(LOINC) GLUCOSE POC 105 70-108 mg/dl Performed By: #### POCGL ### # [facility] [address] [address] GLUCOSE POC Collected: 5 6:40 AM Status: F Source: [facility] TYPE CODE TESTS RESULT OUT OF RANGE REFERENCE UNITS LAB POCGL(LOINC) GLUCOSE POC 136 High 70-108 mg/dl Performed By: #### POCGL ### # [facility] [address] [place] [address] GLUCOSE POC Collected: 5 8:12 PM Status: F Source: [facility] TYPE CODE TESTS RESULT OUT OF RANGE REFERENCE UNITS LAB POCGL(LOINC) GLUCOSE POC 271 High 70-108 mg/dl Performed By: #### POCGL ### # [facility] [address] [place] [address] [place] [address] GLUCOSE POC Collected: 5 3:39 PM Status: F Source: [facility] TYPE CODE TESTS RESULT OUT OF RANGE REFERENCE UNITS LAB POCGL(LOINC) GLUCOSE POC 188 High 70-108 mg/dl Performed By: #### POCGL ### # [facility] [address] [place] [address] [place] [address] GLUCOSE POC Collected: 5 10:44 AM Status: F Source: [facility] TYPE CODE TESTS RESULT OUT OF RANGE REFERENCE UNITS LAB POCGL(LOINC) GLUCOSE POC 174 High 70-108 mg/dl Performed By: #### POCGL ### # [facility] [address] [place] [address] CBC NO DIFFERENTIAL Collected: 07/08/19 10:30 AM Status: F Source: [facility] TYPE CODE TESTS RESULT OUT OF RANGE REFERENCE UNITS LAB WBC(LOINC) WBC 8.6 4.8-10.8 thou/mm3 LAB RBC(LOINC) RBC 4.73 4.20-5.40 mill/mm3 LAB HGB(LOINC) HEMOGLOBIN 13.5 12.0-16.0 gm/dl LAB HCT(LOINC) HEMATOCRIT 41.6 37.0-47.0 % LAB MCV(LOINC) MCV 87.9 81.0-99.0 fL LAB MCH(LOINC) MCH 28.5 26.0-33.0 pg LAB MCHC(LOINC) MCHC 32.5 32.2-35.5 gm/dl LAB RDWCV(LOINC) RDW-CV 12.6 11.5-14.5 % LAB RDWSD(LOINC) RDW-SD 40.3 35.0-45.0 fL LAB PLT(LOINC) PLATELET 236 130-400 thou/mm3 LAB MPV(LOINC) MPV 9.6 9.4-12.4 fL Performed By: #### BMP, EGFR 1, CBCND, ANION #### [facility] [address] [place] [address] BASIC METABOL PANEL Collected: 07/08/19 10:30 AM Status: F Source: [facility] TYPE CODE TESTS RESULT OUT OF RANGE REFERENCE UNITS LAB NAP(LOINC) SODIUM 138 135-145 meq/L LAB KP(LOINC) POTASSIUM 4.4 3.5-5.2 meq/L Result Comment: Low level sp ecimen hemolysis is present as indicated by the interference index on the Yamilet analyzer. ??The reported K+ level may be falsely increased. If clinically warranted, recollection of the specimen is suggested. LAB CLP(LOINC) CHLORIDE 103 98-111 meq/L LAB GLUP(LOINC) GLUCOSE 172 High 74-109 mg/dL LAB BUN(LOINC) BUN 33 High 8-23 mg/dL LAB CRE(LOINC) CREATININE 1.0 High 0.5-0.9 mg/dL LAB CAP(LOINC) CALCIUM 9.2 8.8-10.2 mg/dL LAB CO2P(LOINC) CO2 21 Low 22-29 meq/L Performed By: #### BMP, EGFR 1, CBCND, ANION #### [facility] [address] [place] [address] GFR, ESTIMATED Collected: 10:30 AM Status: F Source: [facility] TYPE CODE TESTS RESULT OUT OF RANGE REFERENCE UNITS LAB GFR4(LOINC) ESTIMATED GFR 62 >60 ml/min /1. 73m2 Result Comment: Pediatric ca lculator link [email or web address] Effective Jan 25, 2022 These results are not intended for use in patients <18 years of age. eGFR results are calculated without a race factor using the 2020 CKD-EPI equation. Careful clinical correlation is recommended, particularly when comparing to results calculated using previous equations. The CKD-EPI equation is less accurate in patients with extremes of muscle mass, extra-renal metabolism of creatinine, excessive creatine ingestion, or following therapy that affects renal tubular secretion. Performed By: #### BMP, EGFR 1, CBCND, ANION #### [facility] [address] [place] [address] ANION GAP Collected: 10:30 AM Status: F Source: [facility] TYPE CODE TESTS RESULT OUT OF RANGE REFERENCE UNITS LAB ANION(LOINC) ANION GAP 14.0 8.0-16.0 meq/L Result Comment: ANION GAP = Sodium -(Chloride + CO2) Performed By: #### BMP, EGFR 1, CBCND, ANION #### [facility] [address] [place] [address] GLUCOSE POC Collected: 6:41 AM Status: F Source: [facility] TYPE CODE TESTS RESULT OUT OF RANGE REFERENCE UNITS LAB POCGL([facility]) GLUCOSE POC 76 70-108 mg/dl Performed By: #### POCGL ### # [facility] [address] [place] [address] XR CHEST (2 VW) Observed: 07/07/2024 2:22 AM Status: F Source: [facility] Chest X-ray: 2 views. Indication: Pulmonary congestion. Comparison: None Findings: The lungs are well aerated. No focal consolidation, or pleural effusion. The cardiac silhouette is normal in size. Bony thorax is grossly intact. Bilateral shoulder arthroplasty. External metallic density versus surgical hardware projects on the lower cervical spine. IMPRESSION: Impression: No acute cardiopulmonary disease. This document has been electronically signed by: Kj Epps MD on 07/07/2024 02:22 AM Interpreted by: Kj Epps MD Signed by: Kj Epps MD 07/07/24 Final result CBC WITH DIFFERENTIAL Collected: 07/06/2024 8:46 PM Status: F Source: [facility] TYPE CODE TESTS RESULT OUT OF RANGE REFERENCE UNITS LAB WBC(LOINC) WBC 11.6 High 4.8-10.8 thou/mm3 LAB RBC(LOINC) RBC 4.83 4.20-5.40 mill/mm3 LAB HGB(LOINC) HEMOGLOBIN 13.8 12.0-16.0 gm/dl LAB HCT(LOINC) HEMATOCRIT 42.6 37.0-47.0 % LAB MCV(LOINC) MCV 88.2 81.0-99.0 fL LAB MCH(LOINC) MCH 28.6 26.0-33.0 pg LAB MCHC(LOINC) MCHC 32.4 32.2-35.5 gm/dl LAB RDWCV(LOINC) RDW-CV 12.5 11.5-14.5 % LAB RDWSD(LOINC) RDW-SD 39.9 35.0-45.0 fL LAB PLT(LOINC) PLATELET 274 130-400 thou/mm3 LAB MPV(LOINC) MPV 9.7 9.4-12.4 fL LAB SEGS(LOINC) NEUTROPHILS 68.3 % LAB LYMPH(LOINC) LYMPHOCYTE 24.0 % LAB MONO(LOINC) MONOCYTE 6.8 % LAB EOS(LOINC) EOSINOPHIL 0.3 % LAB BASO(LOINC) BASOPHIL 0.2 % LAB IMGRN(LOINC) IMMATURE GRANS (IG) 0.4 % LAB SEGSA(LOINC) ABS NEUTROPHILS 7.9 High 1.8-7.7 tho u/mm3 LAB LYMPA(LOINC) ABS LYMPHOCYTES 2.8 1.0-4.8 tho u/mm3 LAB MONOA(LOINC) ABS MONOCYTES 0.8 0.4-1.3 thou/ mm3 LAB EOSA(LOINC) ABS EOSINOPHILS 0.0 0.0-0.4 thou /mm3 LAB BASOA(LOINC) ABS BASOPHILS 0.0 0.0-0.1 thou/ mm3 LAB IMGRA(LOINC) ABS IMMATURE GRANS (IG) 0.05 0.00-0.07 thou/mm3 LAB NRBC(LOINC) NRBC 0 /100 wbc Performed By: #### CBCWD, AP TT, PT, CMPX, ANION, EGFR1 #### [facility] [address] [address] PROTHOMBIN TIME Collected: 07/06/2024 8:46 PM Status : F Source: [facility] TYPE CODE TESTS RESULT OUT OF RANGE REFERENCE UNITS LAB INR(LOINC) PROTHROMBIN TIME, INR 1.02 0.85-1.13 Result Comment: ---------IND ICATION INR Reference Range DVT, PE, AF, AMI, tissue heart valve 2.0 to 3.0 Mechanical prosthetic valves 2.5 to 3.5 Performed By: #### CBCWD, AP TT, PT, CMPX, ANION, EGFR1 #### [facility] [address] [address] APTT Collected: 8:46 PM Status: F Source: [facility] TYPE CODE TESTS RESULT OUT OF RANGE REFERENCE UNITS LAB PTT(LOINC) APTT 29.5 22.0-38.0 seconds Result Comment: Therapeutic Heparin Reference Range= 60-95 seconds (corresponds to 0.3 to 0.7 u/mL Anti-Xa factor activity) Performed By: #### CBCWD, AP TT, PT, CMPX, ANION, EGFR1 #### [facility] [address] [address] COMP. METABOLIC PANEL Collected: 07/06/2024 8:46 PM Status: F Source: [facility] TYPE CODE TESTS RESULT OUT OF RANGE REFERENCE UNITS LAB GLUP(LOINC) GLUCOSE 259 High 74-109 mg/dL LAB CRE(LOINC) CREATININE 1.3 High 0.5-0.9 mg/dL LAB BUN(LOINC) BUN 43 High 8-23 mg/dL LAB NAP(LOINC) SODIUM 136 135-145 meq/L LAB KX(LOINC) POTASSIUM WITH REFLEX MG 5.0 3.5-5.2 meq/L Result Comment: Low level sp ecimen hemolysis is present as indicated by the interference index on the Yamilet analyzer. ??The reported K+ level may be falsely increased. If clinically warranted, recollection of the specimen is suggested. LAB CLP(LOINC) CHLORIDE 96 Low 98-111 meq/L LAB CO2P(LOINC) CO2 26 22-29 meq/L LAB CAP(LOINC) CALCIUM 9.6 8.8-10.2 mg/dL LAB AST(LOINC) AST (SGOT) 23 10-35 U/L LAB ALP(LOINC) ALKALINE PHOSPHATASE 65 35-104 U/L LAB TP(LOINC) TOTAL PROTEIN 7.2 6.4-8.3 g/dL LAB ALB(LOINC) ALBUMIN 4.3 3.4-4.9 g/dL LAB TBIL(LOINC) BILIRUBIN, TOTAL 0.4 0.3-1.2 mg/ dL LAB ALT(LOINC) ALT (SGPT) 24 10-35 U/L Performed By: #### CBCWD, AP TT, PT, CMPX, ANION, EGFR1 #### [facility] [address] [place] [address] ANION GAP Collected: 5 8:46 PM Status: F Source: [facility] TYPE CODE TESTS RESULT OUT OF RANGE REFERENCE UNITS LAB ANION(LOINC) ANION GAP 14.0 8.0-16.0 meq/L Result Comment: ANION GAP = Sodium -(Chloride + CO2) Performed By: #### CBCWD, AP TT, PT, CMPX, ANION, EGFR1 #### [facility] [address] [place] [address] GFR, ESTIMATED Collected: 5 8:46 PM Status: F Source: [facility] TYPE CODE TESTS RESULT OUT OF RANGE REFERENCE UNITS LAB GFR4(LOINC) ESTIMATED GFR 46 Abnormal >60 ml/mi n/1. 73m2 Result Comment: Pediatric ca lculator link [email or web address] Effective Jan 25, 2022 These results are not intended for use in patients <18 years of age. eGFR results are calculated without a race factor using the 2020 CKD-EPI equation. Careful clinical correlation is recommended, particularly when comparing to results calculated using previous equations. The CKD-EPI equation is less accurate in patients with extremes of muscle mass, extra-renal metabolism of creatinine, excessive creatine ingestion, or following therapy that affects renal tubular secretion. Performed By: #### CBCWD, AP TT, PT, CMPX, ANION, EGFR1 #### [facility] [address] [place] [address] EKG 12-LEAD Observed: 07/06/2024 8:11 PM Status: F Source: [facility] 68 68 146 82 422 448 58 67 66 Normal sinus rhythm Possible Left atrial enlargement ST & T wave abnormality, consider anterior ischemia Abnormal ECG No previous ECGs available Clinical correlation is indicated Confirmed by Kp Rodriges ([id number]) on 07/06/2024 11:10:52 PM [email or web address]&Date=06-07-2024&Time=20%3a11%3a37%3a00&TestType=ECG&Site=3&OutputType=PDF&Ext= PDF GLUCOSE POC Collected: 8:10 PM Status: F Source: [facility] TYPE CODE TESTS RESULT OUT OF RANGE REFERENCE UNITS LAB POCGL(LOINC) GLUCOSE POC 280 High 70-108 mg/dl Performed By: #### POCGL ### # [facility] [address] [place] [address] ALLERGIES DATE TYPE / CODE NAME / CODE REACTION SEVERITY SOURCE [id number](SNOMED CT) Contrast Dye Unknown [facility] [id number](SNOMED CT) Latex Unknown [facility] [id number](SNOMED CT) flu vaccines Unknown [facility] [id number](SNOMED CT) iodine Unknown [facility] /[id number](SNOMED CT) Demerol HCl Unknown [facility] [id number](SNOMED CT) Dilaudid Unknown [facility] [id number](SNOMED CT) Imitrex Unknown [facility] ENCOUNTERS ADMIT/DISCHARGE ACCOUNT NUMBER ADMITTING ENCOUNTER CLASS LOCATION SOURCE 07/06/2024/07/12/19 [id number] DAE SILVA [facility] [facility] 06/21/2024 [id number] Ambulatory Occupational Health and WellnessBuildin g:Occupational Health and Wellness [facility] 04/09/2024/04/09/20 24 [id number] [facility] 09/26/2023/09/26/19 [id number] [facility] PAYERS ENCOUNTER GUARANTOR PAYER SUBSCRIBER SOURCE 07/06/2024 CARROLL CLEARYB: [place], [place] [address]Sie: () Primary Insurance:[facility] HEALTH PLANPolicy Number: [id number] Date:6239-14-82YK KARON [id number] [place] [address]RX: CARROLL HARDENDOB: [id number] [place], [place] [address]Mph: () [facility] 06/21/2024 CARROLL CLEARYB: [facility] () Primary Insurance:Healthscope BenefitsPolicy Number: [id number] Date:2015-11-17P O K[place] [address], [place] [address]DV: CARROLL SCHWARTZ [facility] 04/09/2024 Carroll ClearyB: [place] [address] Primary Insurance:AnthemPolicy Number: Effective Date:2094-41-28Ocil Name:ROSIO Crisostomo [id number] [address]SM: Carroll ClearyB: [id number] [place] [address] [facility] 09/26/2023 Carroll ClearyB: [place] CHAMBERSALVIN J. SITEM[facility] [place] [address] Primary Insurance:AnthemPolicy Number: Effective Date:5852-28-20Ryfa Name:ROSIO Crisostomo [id number], [place] [address]QO: Carroll Hernandez: [id number] [place] CHAMBERSALVIN J. [place]ITEMAN [place] [address] [facility]
[2024-09-14 09:17] LABS: Creatinine Urine Random 260.08 mg/dL (20.00-300.00); Microalbum Creatinine Ratio Ur 12.3 mg/g (0.0-29.9); Microalbumin Urine Random 3.2 mg/dL (<=30.0)
[2024-09-14 09:21] LABS: Estimated Average Glucose 146 mg/dL; Glycohemoglobin A1C 6.7 % (4.5-6.2)
== END 2024-09-14 08:30 | disposition home or self-care (01) ==
LOC: LAB 08:33
PROVIDERS: PCP Internal Medicine
DX: E11.69 Type 2 diabetes mellitus with other specified complication (principal)
CPT/HCPCS: 36415; 82043; 82570; 83036

== ENCOUNTER 2024-09-21 06:47 | Outpatient (OUT) | payer OTHER, SELFPAY ==
--- OUTSIDE RECORDS SUMMARY | 2024-07-30 07:15 | XMS_ITS ---
Author Organization [facility] Address [address] [place] [address] Care Team Providers Care Clinical Informatics Educator Name Role Phone MICA VILLASENOR DO Primary Care Provider Jerierrol Eloise Benson Unavailable [phone] Norbert Lewis Unavailable [phone] REASON FOR VISIT GABAPENTIN/LYRICA Medications Medication SIG (Take, Route, Fr equency, Duration) Notes Start Date End Date Status pregabalin 75 mg 1 cap(s) orally 3 ti mes a day for 30 days 07/30/2024 Active Encounters Encounter Location Date Provider Diagnosis [facility] [address] [place] [address] 07/30/2024 Norbert Lewis Spondylolisthesis, lumbar region M43.16 ; Spinal stenosis, lumbar region without neurogenic claudication M48.061 and Aftercare following surgery of the musculoskeletal system Z47.89 Assessments Encounter Date Diagnosis (ICD Code) Assessment Notes Treatment Notes Treatment Clinical Notes Section Notes 07/30/2024 Spondylolisthesis, lumbar region (ICD-10 - M43.16) 07/30/2024 Spinal stenosis, lumbar region without neurogenic claudication (ICD-10 - M48.061) 07/30/2024 Aftercare following surgery of the musculoskeletal system (ICD-10 - Z47.89) Plan Of Treatment Medication Medication Name Sig Start Date Stop Date Notes pregabalin 75 mg 1 cap(s) orally 3 times a day for 30 days 07/30/2024 Next Appt Details Provider Name:Eloise Ny, 10/12/2024 10:40:00 AM, [address] [place] [address], [address], [place], [address], Progress Notes * CARROLL FUENTES ADOB:[birth year] (64 yo F)Acc No.[id number]:07/30/2024 Patient: CARROLL CARRERO :1960 A ge:64 Y S ex:Female Address:[address] [place] [address], [place], [address] * Refills Start pregabalin capsule, 75 mg, orally, 90 Capsule, 1 cap(s), 3 times a day, 30 days Subjective: * Chief Complaints: * G ABAPENTIN/LYRICA * Medical History: * Surgical History: * Hospitalization/Major Diagno stic Procedure: * Medications: Objective: * Vitals: * Physical Examination: Assessment: * Assessment: 1. S pondylolisthesis, lumbar region - M43.16 (Primary) 2 . S simeon stenosis, lumbar region without neurogenic claudication - M48.061 3 . A ftercare following surgery of the musculoskeletal system - Z47.89 Plan: * Treatment: * Procedure Codes: * true * Date: Generated for Carlene navarrete/Geena/Isabellasmitting on: 0 09/21/2024 06:50 AM EDT
--- OUTSIDE RECORDS SUMMARY | 2024-08-24 06:20 | XMS_ITS ---
Author Organization [facility] Address [address] [place] [address] Care Team Providers Care Name Plate Stamper Name Role Phone MICA VILLASENOR DO Primary Care Provider Jerierrol ludin Eloise Meehan Unavailable [phone] Brandi Bryan Unavailable [phone] Allergies Allergen (clinical drug ingredient) Drug/Non Drug Allergy documented on EMR Reaction Allergy Type Onset Date Status meperidine dermerol (uncoded) Unknown Allergy Active Latex latex (uncoded) Unknown Allergy Acti ve DHEA Unknown Drug Allergy Active etodolac Lodine Unknown Drug Allergy Active REASON FOR VISIT LUMBAR 6 WEEK P/O Medications Medication SIG (Take, Route, Fr equency, Duration) Notes Start Date End Date Status traMADol 50 mg 1 tab(s) orally ever y 6 hours prn pain for 7 08/24/2024 08/31/2024 Active etodolac Active clonazePAM Active gabapentin Active pregabalin 75 mg 1 cap(s) orally 3 ti mes a day for 30 days 07/30/2024 Active HYDROcodone Active gabapentin 300 mg 1 cap(s) orally 3 ti mes a day for 30 day(s) 07/27/2024 Active Social History Tobacco Use: Social History Observation Description Date Details (start date - stop date) Never Smoker NA - NA Smoking History Question Answer Notes Smoking Status NonSmoker AUDIT-C (Standard) Question Answer Notes Did you have a drink contain ing alcohol in the past year? Yes How often did you have six o r more drinks on one occasion in the past year? Never (0 point) How many drinks did you have on a typical day when you were drinking in the past year? 1 or 2 drinks (0 point) How often did you have a dri nk containing alcohol in the past year? Monthly or less (1 point) Tobacco Control (Standard) Question Answer Notes Tobacco use: Nonsmoker Encounters Encounter Location Date Provider Diagnosis [facility] Office [address] [place] [address] [place] [address] 08/24/2024 Brandi [place] Aftercare following surgery of the musculoskeletal system Z47.89 Assessments Encounter Date Diagnosis (ICD Code) Assessment Notes Treatment Notes Treatment Clinical Notes Section Notes 08/24/2024 Aftercare following surgery of the musculoskeletal system (ICD-10 - Z47.89) 1. 6 weeks s/p L3-5 decompression and L4-S1 fusion 08/24/2024 Other Plan established by Dr. Veliz. Patient evaluated by myself and Dr. Veliz today. Patient is doing much better today postoperatively and continues to improve her right leg strength with physical therapy. We will have her continue with this and I did prescribe her some tramadol to use as needed for her intermittent right leg pain. Lyrica is helping a lot with this as well. We will see her back in 6 weeks for her next postop recheck. The patient is very much in agreement with the treatment and/or diagnostic plan set forth and all questions were answered to the patient's satisfaction. Thanks once again. If we can be of further service to your patients with disorders of the spine, cervical, thoracic, or lumbar, please do not hesitate to contact Dr. Veliz. Best regards, 1. 6 weeks s/p L3-5 decompression and L4-S1 fusion Plan Of Treatment Medication Medication Name Sig Start Date Stop Date Notes traMADol 50 mg 1 tab(s) orally ever y 6 hours prn pain for 7 08/24/2024 08/31/2024 Treatment Notes Assessment Notes Other Plan established by Dr. Veliz. Patient evaluated by myself and Dr. Veliz today. Patient is doing much better today postoperatively and continues to improve her right leg strength with physical therapy. We will have her continue with this and I did prescribe her some tramadol to use as needed for her intermittent right leg pain. Lyrica is helping a lot with this as well. We will see her back in 6 weeks for her next postop recheck. The patient is very much in agreement with the treatment and/or diagnostic plan set forth and all questions were answered to the patient's satisfaction. Thanks once again. If we can be of further service to your patients with disorders of the spine, cervical, thoracic, or lumbar, please do not hesitate to contact Dr. Veliz. Best regards, Next Appt Details Follow Up: 6 Weeks, Reason: Provider Name:Eloise Ny, 10/12/2024 10:40:00 AM, [address], [address], [place], [address], Progress Notes * CARROLL FUENTES ADOB:[birth year] (64 yo F)Acc No.[id number]:08/24/2024 Progress Notes Patient: CARROLL CARRERO Provider: ARI Colindres :1960 A ge:64 Y S ex:Female Date:08/24/2024 Address:[address] [place], [place] [id number] Pcp:MICA VILLASENOR DO Subjective: * Chief Complaints: * 1 . LUMBAR 6 WEEK P/O. * HPI: G eneral Follow Up Information: Dictated by Brandi Bryan PA-C Patient returns to the office postoperatively and is 6 weeks status post L3-5 decompression, L4-S1 fusion. Patient returns the office today 3 weeks since her last appointment where she had presented early after a fall. She had gone to the ER and obtained a CT scan that did not show any loosening of her hardware or new fractures. She was having trouble sleeping secondary to her right lower extremity pain and we had extended her steroids to help with this. Today she states that she is still getting some right intermittent leg pain but it is much better. She did have to take her last pain medication last night though secondary to this. We had also started her on gabapentin for the RLE paresthesias. She states this medication did not help at all and her PCP had put her on Lyrica 75 mg 3 times daily that is really helping with pain control. We did give her a prescription for physical therapy to start strengthening for right leg and this is going well. She denies any bowel or bladder incontinence/retention or saddle anesthesia. * ROS: G enitourinary: Denies I ncontinence. 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 * Surgical History: H ysterectomy , Cervical fusionx2 , low back fusion , bilateral shoulder replacement , knee scopes , L3-5 laminectomy, L4-5 PSF 06/2024. * Family History: F ather: Arthritis,Diabetes,Heart Disease. * Social History: S moking History S moking Status N onSmoker. A ANABEL-C (Standard) D id you have a drink containing alcohol in the past year? Y es, H ow often did you have six or more drinks on one occasion in the past year? N ever (0 point), H ow many drinks did you have on a typical day when you were drinking in the past year? 1 or 2 drinks (0 point), H ow often did you have a drink containing alcohol in the past year? M onthly or less (1 point). T obacco Control (Standard) T obacco use: N onsmoker. * Medications: T aking etodolac , Taking clonazePAM , Taking gabapentin , Taking HYDROcodone , Taking gabapentin 300 mg capsule 1 cap(s) orally 3 times a day , Taking pregabalin 75 mg capsule 1 cap(s) orally 3 times a day , Medication List reviewed and reconciled with the patient * Allergies: l atex, Lodine, dermerol, DHEA. Objective: * Vitals: * Examination: G eneral examination: O n examination, the patient is well-developed, well-nourished, well-groomed, alert and oriented x3, normal mood. Patient ambulates with antalgic gait and is utilizing a walker. Midline lumbar incision is well healed. Midline tender over the lumbar spine. 5/5 muscle strength bilateral lower extremities, except right 4/5 hip flexion. Sensory intact lower extremities. X -ray Imaging Studies: N one taken today. Assessment: * Assessment: 1. A ftercare following surgery of the musculoskeletal system - Z47.89 (Primary) ? 1. 6 weeks s/p L3-5 decompre ssion and L4-S1 fusion. Plan: * Treatment: 2. O thers Notes: Plan established by Dr. Veliz. Patient evaluated by myself and Dr. Veliz today. Patient is doing much better today postoperatively and continues to improve her right leg strength with physical therapy. We will have her continue with this and I did prescribe her some tramadol to use as needed for her intermittent right leg pain. Lyrica is helping a lot with this as well. We will see her back in 6 weeks for her next postop recheck. The patient is very much in agreement with the treatment and/or diagnostic plan set forth and all questions were answered to the patient's satisfaction. Thanks once again. If we can be of further service to your patients with disorders of the spine, cervical, thoracic, or lumbar, please do not hesitate to contact Dr. Veliz. Best regards, * Follow Up: 6 Weeks Forms: * Images: * Electronic signature of Ken Bryna PA-C on 09/21/2024 at 06:50 AM EDT Sign off status: Pending * Provider: ARI Colindres Date: 08/24/2024 Generated for Carlene navarrete/Geena/Cyril on: 09/21/2024 06:50 AM EDT History and Physical Notes * HPI (History of Present Illness) Category Sub-Category Detail Notes Category Not es General Follow Up Information Dictated by Brandi Bryan PA-C Patient returns to the office postoperatively and is 6 weeks status post L3-5 decompression, L4-S1 fusion. Patient returns the office today 3 weeks since her last appointment where she had presented early after a fall. She had gone to the ER and obtained a CT scan that did not show any loosening of her hardware or new fractures. She was having trouble sleeping secondary to her right lower extremity pain and we had extended her steroids to help with this. Today she states that she is still getting some right intermittent leg pain but it is much better. She did have to take her last pain medication last night though secondary to this. We had also started her on gabapentin for the RLE paresthesias. She states this medication did not help at all and her PCP had put her on Lyrica 75 mg 3 times daily that is really helping with pain control. We did give her a prescription for physical therapy to start strengthening for right leg and this is going well. She denies any bowel or bladder incontinence/retention or saddle anesthesia. Examination Category Sub-Category Detail Notes Category Not es General examination On exami nation, the patient is well-developed, well-nourished, well-groomed, alert and oriented x3, normal mood. Patient ambulates with antalgic gait and is utilizing a walker. Midline lumbar incision is well healed. Midline tender over the lumbar spine. 5/5 muscle strength bilateral lower extremities, except right 4/5 hip flexion. Sensory intact lower extremities. X-ray Imaging Studies None t neelam today.
--- OUTSIDE RECORDS SUMMARY | 2024-09-12 08:00 | XMS_ITS ---
Author Organization [facility] Address [address] [place] [address] Care Team Providers Care Auto Dismantler Name Role Phone MICA VILLASENOR DO Primary Care Provider Unavaila Eloise Benson Unavailable [phone] REASON FOR VISIT Concerns Encounters Encounter Location Date Provider Diagnosis [facility] [address] [place] [address] 09/12/2024 Eloise Knox Clair Plan Of Treatment Next Appt Details Provider Name:Eloise Ny, 10/12/2024 10:40:00 AM, [address] [facility], [address], [place], [address], Progress Notes * CARROLL FUENTES ADOB:[birth year] (64 yo F)Acc No.[id number]:09/12/2024 Patient: BENI CARRERORICALIYAH Meier :1960 A ge:64 Y S ex:Female Address:[address] [place], [address] * true * Date: Generated for Printi ng/Faxing/eTransmitting on: 0 09/21/2024 06:50 AM EDT
--- OUTSIDE RECORDS SUMMARY | 2024-09-21 06:50 | XMS_ITS | Clinical Summary ---
Author Organization [facility] Address [address] [place] [address] Care Team Providers Care Test Tube Maker Name Role Phone Robert Cruz Primary Care Provider [phone] Medications No known medications Active Problems No known active problems Family History Medical History Relation Name Comments Diabetes Father Heart disease Father Hypertension Father Hyperlipidemia Mother Relation Name Status Comments Father Alive Mother Alive Social History Tobacco Use Types Packs/Day Years Used Date Smoking Tobacco: Never Tobacco Cessation:Counseling Given: Not Answered Alcohol Use Standard Drinks/Week Comments Never 0 (1 standard drink = 0.6 oz pur e alcohol) Comments Unknown Sex and Gender Information Value Date Recorded Sex Assigned at Female 09/10/2022 8:42 AM EDT Legal Sex Female 8:32 PM EDT Gender Identity Female 09/10/2022 8:42 AM EDT Sexual Orientation Not on file Last Filed Vital Signs Vital Sign Reading Time Taken Comments Blood Pressure 138/82 06/30/2021 12:00 PM EST Pulse - - Temperature - - Respiratory Rate - - Oxygen Saturation - - Inhaled Oxygen Concentration - - Weight 81.6 kg (180 lb) 09/09/2022 12:00 PM EDT Height 156.2 cm (5' 1.5 ) 09/09/2022 12:00 PM ED T Body Mass Index 33.46 09/09/2022 12:00 PM EDT Plan of Treatment Not on file Insurance [employer] Care Teams Test Tube Maker Relationship Specialty Start Date End Date Robert Cruz DO PCP - General Internal Medicine 10/01/22
--- OUTSIDE RECORDS SUMMARY | 2024-09-21 06:50 | XMS_ITS | Clinical Summary ---
Author Organization [facility] Address [id number] [address] [id number] Care Team Providers Care Legal Transcriber Name Role Phone Unavailable Primary Care Provider Unavailabl e Social History Tobacco Use Types Packs/Day Years Used Date Smoking Tobacco: Never Assessed Childcare Answer Date Recorded Childcare Unknown 10/02/2018 Employment Answer Date Recorded Employment Unknown 10/02/2018 Comments Unknown Sex and Gender Information Value Date Recorded Sex Assigned at Not on file Legal Sex Female 11:59 AM EDT Gender Identity Not on file Sexual Orientation Not on file Plan of Treatment Health Maintenance Due Date Last Done Comments Depression Screening 1971 Tobacco Screening 1971 Adult BMI Screening 1977 DTaP,Tdap and Td Vaccines (1 - Tdap) 1978 Zoster (Shingles) Vaccine (1 of 2) 2009 COVID-19 Vaccine (2023-2 5 season) 2023 02/18/2021, 05/21/2020, 04/23/2020, Additional history exists Fall Risk Screening 2024 Influenza Vaccine 12/24/2024 03/04/2021 Medical Devices Not on file
--- OUTSIDE RECORDS SUMMARY | 2024-09-21 06:50 | XMS_ITS | Encounter Summary ---
Author Organization [facility] Address [address] [place] [address] Care Team Providers Care Cardiac Monitor Technician Name Role Phone Robert Cruz DO Primary Care Provider [phone] Encounter Details Date Type Department Care Team (Late st Contact Info) Description 10/01/2022 Abstract [facility] [address] [facility] [address] [place] [address] Isreal Clark PA [address] [facility] [address] [place] [address] Social History Tobacco Use Types Packs/Day Years [...] AM EDT Sexual Orientation Not on file COVID-19 Exposure Response Date Recorded In the last 10 days, have yo u been in contact with someone who was confirmed or suspected to have Coronavirus/COVID-19? No / Unsure 09/10/2022 9:27 AM EDT documented as of this encounter Plan of Treatment Not on file documented as of this encounter Visit Diagnoses Not on filedocumented in this encounter Care Teams Cardiac Monitor Technician Relationship Specialty Start Date End Date Robert Cruz DO PCP - General Internal Medicine 10/01/22 documented as of this encounter
--- OUTSIDE RECORDS SUMMARY | 2024-09-21 06:50 | XMS_ITS | Patient Health Record ---
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 Name Role Phone MICA CRUZ DO Primary Care Provider Eloise Barclay Unavailable [phone] Norbert Lewis Unavailable [phone] Dank Sams Unavailable [phone] Norbert Lamar Unavailable [phone] Henok Rosario Unavailable [phone] Brandi Bryan Unavailable [phone] Allergies Allergen (clinical drug ingredient) Drug/Non Drug Allergy documented on EMR Reaction Allergy Type Onset Date Status meperidine dermerol (uncoded) Unknown Allergy Active Latex latex (uncoded) Unknown Allergy Acti ve DHEA Unknown Drug Allergy Active etodolac Lodine Unknown Drug Allergy Active Results Component Value Reference Range Notes CT Arthrogram - Right Should er Reviewed date:06/27/2024 12:33:41 PM Interpretation: Performing Lab: Notes/Report: SCC- SHOULDER 3 VIEW RIGHT 7 3030 Reviewed date:05/01/2024 03:44:49 PM Interpretation: Performing Lab: Notes/Report: MRI : Shoulder W/O Contrast Right - 91247 Reviewed date:05/01/2024 03:44:41 PM Interpretation: Performing Lab: Notes/Report: XR LUMBAR SPINE 1 VW Reviewed date:07/11/2024 01:53:12 PM Interpretation: Performing Lab: Notes/Report: PROCEDURE: XR LUMBAR SPINE 1 VW [facility] [address], [place] [address], Original Ordering Provider: Magdaleno GREWAL Provider Role: Ordering XR LUMBAR SPINE 1 VW Reviewed date:07/11/2024 01:53:12 PM Interpretation: Performing Lab: Notes/Report: MOBILE LATERAL LUMBAR SPINE: [facility] [address], [place] [address], Original Ordering Provider: Magdaleno GREWAL Provider Role: Ordering Reason For Referral Reason REFERRAL TO [facility] Diagnosis 1 DDD (degenerative di sc disease), cervical (M50.30) Referral Organization [facility] Referring Provider First Name Eloise Referring Provider Last Name [facility] Zam[facility] Referring Provider Speciality Orthopedic Surgery Referred Organization Pain clinic General Notes Barb Kendall 2023 10:19:59 AM >, Barb Kendall 04/03/2024 03:22:45 PM >FAXED TO [facility] Referral Priority Routine Reason RAMO................. PLEASE OBTAIN AUTHORIZATION FOR RIGHT SHOULDER MRI - SEE NOTES Diagnosis 1 Acute pain of right shoulder (M25.511) Referral Organization [facility] Referring Provider First Name Norbert Referring Provider Last Name Lamar Referring Provider Speciality Orthopedic Surgery Referred Organization [facility] Referred Address [place], [place], Procedure 1 MRI Joint Upper Ext w/o Dye (77319) General Notes Cinthya Vila 2023 12:11:06 PM >SUSI TERESA ENDS TUESDAYChetan Amy 04/02/2024 04:08:03 PM >PER ROBERTA: The following solutions for the service date entered do not require Pre-Authorization by Roberta. Please note that benefit limits, if applicable, will still be applied. Contact the health plan using the number on the back of the member's ID card if you have any questions regarding coverage or Pre-Authorization requirements. MA NOTIFIED REF FAXED TO Cadence HOPKINS Monica 04/03/2024 08:53:22 AM > FAXED ORDER, SENT MESSAGE Referral Priority Routine Reason RAMO................. .....PLEASE OBTAIN AUTHORIZATION FOR CT ARTHROGRAM RIGHT SHOULDER Diagnosis 1 Acute pain of right shoulder (M25.511) Referral Organization [facility] Referring Provider First Name Norbert Referring Provider Last Name Lamar Referring Provider Speciality Orthopedic Surgery Referred Organization [facility] anneltanjavincent Referred Address [facility] Procedure 1 CT UPPER EXTREMITY W /DYE (40322) General Notes Rajni Benton 025 01:33:00 PM >PER AVAILITY/DEVOTED, NO AUTH REQUIRED MA NOTIFIED REF FAXED TO Cadence HOPKINS Monica 04/30/2024 01:50:59 PM > FAXED ORDER Referral Priority Routine Reason RIGHT SHOULDER ASPIR ATION AND CULTURES PLEASE CONTACT PATIENT TO SET UP Diagnosis 1 Acute pain of right shoulder (M25.511) Diagnosis 2 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) Referral Organization [facility] Referring Provider First Name Henok Referring Provider Last Name Marlene Referring Provider Speciality Orthopedic Surgery Referred Organization [facility] vipul Referred Provider Henok Rosario Referred Address [facility] Referred Provider Specialty Orthopedic S malcolm General Notes Sylvia Montgomery 08/2024 09:53:56 AM > Referral Priority Routine Medications Medication SIG (Take, Route, Fr equency, Duration) Notes Start Date End Date Status etodolac Active clonazePAM Active gabapentin Active HYDROcodone Active gabapentin 300 mg 1 cap(s) orally 3 ti mes a day for 30 day(s) 07/27/2024 Active pregabalin 75 mg 1 cap(s) orally 3 ti mes a day for 30 days 07/30/2024 Active Social History Tobacco Use: Social History [...] (Standard) Question Answer Notes Tobacco use: Nonsmoker Problems Problem Type SNOMED Code ICD Code Onset Dates Problem Status W/U Status Risk Notes Problem 558270255 Arthrodesis status (Z98.1) Active confirmed Problem 42912582 Cervical pain (M54.2) Active confirmed Problem 191502045 Spondylolisthesi s , cervical region (M43.12) Active confirmed Problem Acquired spondylolisthesis (510468288) Spondylolisthesis , lumbar region (M43.16) Active confirmed Problem Displacement of lumbar intervertebral disc without myelopathy (10546145) Other intervertebral disc displacement, lumbar region (M51.26) Active confirmed Problem 629553207 Encounter for change or removal of drains (Z48.03) Active confirmed Problem 218734559241570 Sciatica of righ t side (M54.31) Active confirmed Problem 267471191 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) Active confirmed Problem 691580259 Lumbar spondylosis (M47.816) Active confirmed Problem 3430235536 Acute pain of right shoulder (M25.511) Active confirmed Problem 47553015 Other cervical disc degeneration at C4-C5 level (M50.321) Active confirmed Problem Spinal stenosis of lumbar region (91491079) Spinal stenosis, lumbar region without neurogenic claudication (M48.061) Active confirmed Problem 845381201 Encounter for other orthopedic aftercare (Z47.89) Active confirmed Problem Other intervertebral disc degeneration, lumbar region with discogenic back pain and lower extremity pain (M51.362) Active confirmed Vital Signs Height 5'1 in 07/13/2024 Weight 174 lbs 07/13/2024 BMI 32.87 07/13/2024 Encounters Encounter Location Date Provider [facility] [address] [place] [address] [place] [address] 08/24/2024 [facility] Aftercare following surgery of the musculoskeletal system Z47.89 [facility] [address] [place] [address] [place] [address] 03/30/2024 [facility] Spondylolisthesis, cervical region M43.12 ; Other cervical disc degeneration at C4-C5 level M50.321 and Arthrodesis status Z98.1 [facility] [address] [place] [address] 04/02/2024 Norbert Lamar Acute pain of right shoulder M25.511 [facility] [address] [place] [address] 04/30/2024 Norbert Lamar Acute pain of right shoulder M25.511 [facility] [address] [place] [address] 05/30/2024 Henok Rosario Acute pain of right shoulder M25.511 [facility] [address] [place] [address] 06/27/2024 Henok Rosario Encounter for preprocedural laboratory examination Z01.812 ; Acute pain of right shoulder M25.511 ; Encounter for other preprocedural examination Z01.818 ; 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 and History of right shoulder replacement Z96.611 [facility] [address] [place] [address] 07/06/2024 Dank Diglio Sciatica of right si de M54.31 and Lumbar spondylosis M47.816 [facility] Inpatient [address], [place] [id number] 07/07/2024 Dank Diglio Spinal stenosis, lumbar region without neurogenic claudication M48.061 ; Other intervertebral disc displacement, lumbar region M51.26 and Spondylolisthesis, lumbar region M43.16 [facility] Inpatient [address] [place], [place] [id number] 07/08/2024 Selvon Zoran Spinal stenosis, lumbar region without neurogenic claudication M48.061 ; Other intervertebral disc displacement, lumbar region M51.26 ; Spondylolisthesis, lumbar region M43.16 and Other intervertebral disc degeneration, lumbar region with discogenic back pain and lower extremity pain M51.362 [facility] [address] [facility] [address] [place] [address] [place] [address] 07/13/2024 [facility] Encounter for other orthopedic aftercare Z47.89 ; Encounter for change or removal of drains Z48.03 and Arthrodesis status Z98.1 [facility] [address] [facility] [address] [place] [address] [place] [address] 07/27/2024 [facility] Encounter for other orthopedic aftercare Z47.89 and Arthrodesis status Z98.1 [facility] [address] [place] [address] 06/26/2024 [place] [address] [place] [address] 06/27/2024 Henok [place] [address] [place] [address] 07/12/2024 Selvohal Zoran [place] [address] [place] [address] 07/20/2024 Selvon Zoran Aftercare following surgery of the musculoskeletal system Z47.89 [place] [address] [place] [address] 07/30/2024 Norbert Palte Spondylolisthesis, lumbar region M43.16 ; Spinal stenosis, lumbar region without neurogenic claudication M48.061 and Aftercare following surgery of the musculoskeletal system Z47.[address] [place] [address] [place] [address] 09/12/2024 Selvon Zoran Assessments Encounter Date Diagnosis (ICD Code) Assessment Notes Treatment Notes Treatment Clinical Notes Section Notes 03/30/2024 Spondylolisthesis, cervical region (ICD-10 - M43.12) 1. C3-4 dynamic anterolisthesis 2. C4-5 DDD 3. Prior C5-6 fusion 4. Prior C6-7 disc replacement 03/30/2024 Other cervical disc degeneration at C4-C5 level (ICD-10 - M50.321) 1. C3-4 dynamic anterolisthesis 2. C4-5 DDD 3. Prior C5-6 fusion 4. 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 L4-5 spondylolisthes is, grade 1 2. Right sciatica 3. Prior lumbar decompression 07/06/2024 Lumbar spondylosis (ICD-10 - M47.816) 1. L4-5 spondylolisthes is, grade 1 2. Right sciatica 3. Prior lumbar decompression 07/07/2024 Other intervertebral disc displacement, lumbar region (ICD-10 - M51.26) 07/07/2024 Spinal stenosis, lumbar region without neurogenic claudication (ICD-10 - M48.061) 07/13/2024 Encounter for change or removal of drains (ICD-10 - Z48.03) 1.5 days s/p L3-5 decompression/f usion 07/13/2024 Encounter for other orthopedic aftercare (ICD-10 - Z47.89) 1.5 days s/p L3-5 decompression/f usion 07/20/2024 Aftercare following surgery of the musculoskeletal system (ICD-10 - Z47.89) 07/27/2024 Arthrodesis status (ICD-10 - Z98.1) 1. 3 weeks s/p L3-5 decompression with L4-S1 fusion 07/27/2024 Encounter for other orthopedic aftercare (ICD-10 - Z47.89) 1. 3 weeks s/p L3-5 decompression with L4-S1 fusion 07/08/2024 Other intervertebral disc displacement, lumbar region (ICD-10 - M51.26) 07/08/2024 Spinal stenosis, lumbar region without neurogenic claudication (ICD-10 - M48.061) 07/30/2024 Spondylolisthesis, lumbar region (ICD-10 - M43.16) 07/30/2024 Spinal stenosis, lumbar region without neurogenic claudication (ICD-10 - M48.061) 08/24/2024 Aftercare following surgery of the musculoskeletal system (ICD-10 - Z47.89) 1. 6 weeks s/p L3-5 decompression and L4-S1 fusion 07/30/2024 Aftercare following surgery of the musculoskeletal system (ICD-10 - Z47.89) 07/13/2024 Arthrodesis status (ICD-10 - Z98.1) 1.5 days s/p L3-5 decompression/f usion 07/08/2024 Spondylolisthesis, lumbar region (ICD-10 - M43.16) 03/30/2024 Arthrodesis status (ICD-10 - Z98.1) 1. C3-4 dynamic anterolisthesis 2. C4-5 DDD 3. Prior C5-6 fusion 4. 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 Veliz. Patient evaluated by myself and Dr. Veliz today. Patient is doing much better today postoperatively and continues to improve her right leg strength with physical therapy. We will have her continue with this and I did prescribe her some tramadol to use as needed for her intermittent right leg pain. Fide is helping a lot with this as [...] weeks s/p L3-5 decompression and L4-S1 fusion 03/30/2024 Other Plan established by Dr. Veliz. Patient evaluated by myself and Dr. Veliz today. Dr. Veliz reviewed patient's MRI results with her and at this time is recommending referral back to pain management for a C1-2 facet injection. We can see the patient back on an as-needed basis. The patient is very much in agreement with the treatment and/or diagnostic plan set forth and all questions were answered to the patient's satisfaction. Thanks once again. If we can be of further service to your patients with disorders of the spine, cervical, thoracic, or lumbar, please do not hesitate to contact Dr. Veliz. Best regards, 1. C3-4 dynamic anterolisthesis 2. C4-5 DDD 3. Prior C5-6 fusion 4. Prior C6-7 disc replacement 04/02/2024 Other For her right shoulder pain I recommended an MRI scan to evaluate for a possible subscap tear. If this is not diagnostic we would consider a CT arthrogram. She will follow-up once the study is complete. Import medication 04/30/2024 Other For her right shoulder pain after total shoulder arthroplasty she prefers to follow-up at [facility] and not the [facility]. I recommended a CT arthrogram to evaluate the integrity of her subscapularis tendon. She will follow-up with Dr. Rosario for further treatment recommendations. Import medication 05/30/2024 Other I reviewed the patient's clinical exam findings. 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 This is probably been present since the original surgery with failure of the subscap to heal postoperatively. This is likely causing her anterior shoulder pain. However I do need to rule out infection. I will get a CBC, CRP, ESR as well as a shoulder aspiration. I will see her back to review these results. In the meantime she can get discs of her imaging including x-ray, CT and MRI so that I can review these with her at the next visit. Patient understands and agrees with the plan. Right shoulder pain status post anatomic total shoulder arthroplasty with likely subscapularis failure 06/27/2024 Other Operative and nonoperative treatments were reviewed in detail. I also reviewed her lab work. She has no signs of infection. Aspiration showed no growth on cultures. I discussed there could be a subtle infection however findings on her labs are not suspicious and I think it is reasonable to proceed with a revision arthroplasty. This would be conversion to a reverse arthroplasty. I am highly suspicious of a complete subscapularis failure based on her clinical exam. Get her scheduled for right revision anatomic to reverse shoulder arthroplasty. She will need PCP clearance and the appropriate preoperative workup. I will need her op note to determine the current implant system. I may be of the salvage of the humeral component. Patient understands and agrees with the plan. I will see her back 2 weeks postoperative. 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 Veliz. At this time, we will set the patient up with a MRI of the lumbar spine. Dr. Veliz is actually recommending she go to the emergency department for a low right lower extremity ultrasound and a MRI given her significant pain in the office today. We will discuss with the emergency department after the MRI is completed. The patient is very much in agreement with the treatment and/or diagnostic plan set forth and all questions were answered to the patient's satisfaction. Thanks once again. If we can be of further service to your patients with disorders of the spine, cervical, thoracic, or lumbar, please do not hesitate to contact Dr. Veliz. Best regards, 1. L4-5 spondylolisthes is, grade 1 2. Right sciatica 3. Prior lumbar decompression 07/13/2024 Other There is about 60 mL of serosanguineous fluid in patient's Hemovac that was collected in a 24-hour period. Hemovac was removed in office today without issue, dressing applied and patient tolerated this well. Patient's blood pressure was soft at 90/60 taken in office today. I did review her labs from her ER visit yesterday and her hemoglobin was 8.4 that has trended down postoperatively from 12.9 about 6 weeks ago. We did call Dr. Cruz's office, her PCP, to get her in today to discuss holding/changing her blood pressure medications while on narcotics as I think on top of her acute blood loss anemia this is causing her to be too symptomatic. She is going to his office after this appointment. We will see the patient back at her regularly scheduled postop visit, sooner as needed for any new or worsening symptoms. The patient is very much in agreement with the treatment and/or diagnostic plan set forth and all questions were answered to the patient's satisfaction. Thanks once again. If we can be of further service to your patients with disorders of the spine, cervical, thoracic, or lumbar, please do not hesitate to contact Dr. Veliz. Best regards, 1.5 days s/p L3-5 decompression/f usion 07/27/2024 Other Plan established by Dr. Veliz. Patient evaluated by myself and Dr. Veliz today. I am going to extend her prednisone 20 mg as this has helped the most make her comfortable. We will start her on gabapentin. We are also going to get her into physical therapy to work on her right lower extremity strengthening and an order was given to her today. We will see her back in 3 weeks for her scheduled postop recheck. The patient is very much in agreement with the treatment and/or diagnostic plan set forth and all questions were answered to the patient's satisfaction. Thanks once again. If we can be of further service to your patients with disorders of the spine, cervical, thoracic, or lumbar, please do not hesitate to contact Dr. Veliz. Best regards, 1. 3 weeks s/p L3-5 decompression with L4-S1 fusion Plan Of Treatment Pending Test Test Name Order Date Lumbar spine, 4v flex ext - 09434 2024 Lumbar spine 2v ap and lat - 84081 07/27 Cell count 05/30/2024 Cervical spine,ap,lat,flex,ext - 41261 1 05/31/2023 EKG 06/27/2024 Crystals 05/30/2024 BMP 06/27/2024 MRSA (Bilateral Nares) PCR 06/27/2024 SFS - Lumbar Spine PT Order, Isometrics & Strenghening w/Modalities as needed, 2-3 times per week for 6 weeks 07/27/2024 CBC W Diff 05/30/2024 Type and Screen 06/27/2024 Urinalysis w/Reflex C and S 06/27/2024 AEROBIC AND ANAEROBIC CULTURE 05/30/2024 FACET INJECTION 03/30/2024 ESR, CRP 05/30/2024 Aspiration for cultrues of Right shoulde r 05/30/2024 Next Appt Details Provider Name:Eloise Ny, 10/12/2024 10:40:00 AM, [address] [facility] [address], [address], [place], [address], Insurance Providers Payer Name Payer Address Payer Phone Subscriber Number Group Number Insured Name Patient Relationship to Insured Coverage Start Date Coverage End Date Medicare [employer] [facility] [place] [address] [place] [phone] [id number] [place] Self - patient is the insured 4 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
--- OUTSIDE RECORDS SUMMARY | 2024-09-21 06:51 | XMS_ITS | Clinical Summary ---
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 Name Role Phone Robert Cruz Primary Care Provider [phone] Allergies Active Allergy Reactions Criticality Noted Date Comments Povidone-Iodine Hives,Itching 10/20/2016 Contrast Dye Anaphylaxis High 09/29/2010 Meperidine (Pf) Other: See Comments Medium 09/29/2010 hypotension Dhe Other: See Comments 08/16/2016 Respiratory arrest Hydromorphone (Bulk) Other: See Comments 2016 resiratory arrest Sumatriptan Succinate Hives Medium 09/29/2010 Influenza Vaccine Tri-Sp 01-02 Hives Medium 09/29/2010 Latex Anaphylaxis Medium 09/29/2010 Medications levothyroxine (SYNTHROID) 125 mcg ORAL tablet Take 125 mcg by mouth once daily. Active atenolol 50 mg ORAL tablet Take 50 mg by mouth once daily. Active CLONAZEPAM (KLONOPIN ORAL) Take 1.5 mg by mouth daily at bedtime. 1 Active pravastatin 20 mg ORAL tablet Take 20 mg by mouth daily at bedtime. 1 Active citalopram (CELEXA) 40 mg tablet Take 40 mg by mouth once daily. Active nabumetone (RELAFEN) 500 mg tablet Take 500 mg by mouth twice daily. Active glimepiride (AMARYL) 4 mg tablet Take 4 mg by mouth daily with breakfast. Active ondansetron (ZOFRAN, HYDROCHLORIDE,) 4 mg tablet Take 4 mg by mouth every 8 hours as needed for Nausea/Vomiti ng. Active naproxen sodium (ALEVE) 220 mg tablet Take 220 mg by mouth twice daily with meals. 9 Active metFORMIN (GLUCOPHAGE) 500 mg tablet Take 500 mg by mouth daily before breakfast. 3 8 Active rizatriptan (MAXALT BOX SPRING FRAME BUILDER) 10 mg disintegrating tablet DISSOLVE 1 TABLET IN MOUTH NEEDED FOR HEADACHE, MAY REPEAT IN 2 HOURS IF NEEDED 2 8 Active mupirocin (BACTROBAN) 2 % ointment Apply 0.5 inch with cotton swab (Q-tip) to each nostril in the morning and evening for 5 days prior to and including day of surgery. 22 g 9 Active calcium phosphate dibas/vit D3 (VITAMIN D, WITH CALCIUM, ORAL) Take 800 mg by mouth once daily. Active docusate sodium (COLACE) 100 mg capsule Take 1 capsule by mouth twice daily. 50 capsule 1 9 Active aspirin, enteric coated (ECOTRIN LOW STRENGTH) 81 mg EC tablet Take 1 tablet by mouth twice daily for 14 days. 28 tablet 9 Active amoxicillin (POLYMOX, AMOXIL) 500 mg capsule Take 4 capsules 1 hour prior to procedure 8 capsule 3 9 Active Active Problems Problem Noted Date Diagnosed Date Type 2 diabetes mellitus wit hout complication, without long-term current use of insulin 06/07/2018 STEPHANIE (obstructive sleep apnea) 06/07/2018 Mixed hyperlipidemia 06/07/2018 Glenohumeral arthritis, right 04/26/2018 Status post replacement of right shoulder joint 04/26/2018 Status post total shoulder arthroplasty 12/02/19 17 Glenohumeral arthritis 08/16/2016 Primary osteoarthritis of left shoulder 08/17/19 17 Family History Medical History Relation Comments Carotid Disease Father Diabetes Father Heart Father Hypertension Father Breast Cancer Maternal Grandmother Arthritis Mother cholesterol Mother Diabetes Paternal Grandmother Stroke Paternal Grandmother Relation Status Comments Father Maternal Grandmother Mother Paternal Grandmother Social History Tobacco Use Types Packs/Day Years Used Date Smoking Tobacco: Never Smokeless Tobacco: Never Alcohol Use Standard Drinks/Week Comments Yes 0 (1 standard drink = 0.6 oz pur e alcohol) a few times a year PHQ-2 Answer Date Recorded PHQ2 Score 0 06/20/2018 Area Deprivation Index Answer Date Burton rded National Score (1-100), lower number is lower ri sk Not on file 04/02/2020 State Score (1-10), lower number is lower risk N ot on file 04/02/2020 Data from: https://www.neighborhoodatlas.medicine.[facility].edu/. 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 Not on file Not on file Not on file Last Filed Vital Signs Vital Sign Reading Time Taken Comments Blood Pressure 110/47 06/20/2018 3:44 PM EST Pulse 81 06/20/2018 3:44 PM EST Temperature 37 C (98.6 F) 06/20/2018 3:44 PM EST Respiratory Rate 16 06/20/2018 3:44 PM EST Oxygen Saturation 93% 06/20/2018 3:44 PM EST Inhaled Oxygen Concentration - - Weight 82.6 kg (182 lb) 06/20/2018 8:38 AM EST Height 157.5 cm (5' 2 ) 06/07/2018 10:31 AM EST Body Mass Index 33.29 06/07/2018 10:31 AM EST Plan of Treatment Health Maintenance Due Date Last Done Comments Anxiety Screening 1977 Depression Screening 1977 HIV Screening 1977 Hepatitis C Screening 1977 DTaP,Tdap,Td Vaccine (1 - Tdap) [address] Colonography 2004 Cologuard (FIT-DNA) 2004 Colonoscopy 2004 Colorectal Cancer Screening 2004 Fecal Occult Blood 2004 Lipid Screening 2004 Sigmoidoscopy 2004 Pneumococcal Vaccine: 50+ (1 of 1 - PCV) 2009 Shingrix Vaccine (1 of 2) 2009 Diabetes Screening 06/07/2021 06/07/2018, 10/20/2016 Covid-19 Vaccine (1 - season) 2023 Bone Density Screening 2024 Advance Directive Discussion 04/25/2024 Influenza Vaccine (Season Ended) 2024 RSV Vaccine (1 - 1-dose 75+ series) 2034 Medical Devices Implanted Type Area Equipment Service Lead Device Identifier Shelf Expiration Date Model / Serial / Lot Cement Simplex P Speedset Bone Radiopaque Sterile - [id number] Implanted:Qty : 1 on 06/20/2018 by Avila Garsia MD at [facility] Cement / Putty Right: Bone - Shoulder [facility] [employer] 09/23/2019 [id number] / / [id number] Cac-Hw-G-Kind Implant - [id number] Implanted:Qty : 1 on 11/18/2016 at [facility] Implant Left: Bone - Shoulder [employer] [id number] / / [id number] Vvl-Uc-B-Kind Implant - [id number] Implanted:Qty : 1 on 11/18/2016 at [facility] Implant Left: Bone - Shoulder [employer] [id number] / / [id number] All Poly Pegged Glenoid Implanted:Qty : 1 on 11/18/2016 at [facility] Implant Left: Bone - Shoulder [employer] 08/17/2021 [id number] / [id number] / [id number] Short Humeral Stem, [id number] Implanted:Qty : 1 on 06/20/2018 by Avila Garsia MD at [facility] Implant Right: Bone - Shoulder [employer] 05/10/2024 520-10-000 / / [id number] Neutral Humeral Head [id number] Implanted:Qty : 1 on 06/20/2018 by Avila Garsia MD at [facility] Implant Right: Bone - Shoulder [employer] 05/01/2024 [id number] / / [id number] Neck Hum Altivate - [id number] Implanted:Qty : 1 on 11/18/2016 at [facility] Joint - Shoulder Left: Bone - Shoulder [employer] 08/19/2022 520-07-000 / / [id number] Comp Ru Allpoly 42mm Eplus - [id number] Implanted:Qty : 1 on 06/20/2018 by Avila Garsia MD at [facility] Joint - Shoulder Right: Bone - Shoulder [employer] 01/06/2023 [id number] / / [id number] Neck Hum Altivate - [id number] Implanted:Qty : 1 on 06/20/2018 by Avila Garsia MD at [facility] Joint - Shoulder Right: Bone - Shoulder [employer] 06/06/2024 520-07-000 / / [id number] Procedures Procedure Name Priority Date/Time Associated Diagnosis Comments BASIC METABOLIC PANEL Routine 06/07/2018 11:00 AM EST Glenohumeral arthritis, right from Last 3 Months or Most Recently Relevant to Health Maintenance Results * (ABNORMAL) BASIC METABOLIC PNL (06/07/2018 11:00 AM EST) Glucose 133(H) 74 - 99 mg/dL 06/07/2018 8:31 PM [facility] Comment: The [place] Diabetes Association (ADA) provides guidance for cutoff values for fasting glucose and random glucose. The ADA defines fasting as no caloric intake for at least 8 hours. Fasting plasma glucose results between 100 to 125 mg/dL indicate increased risk for diabetes (prediabetes). Fasting plasma glucose results greater than or equal to 126 mg/dL meet the criteria for diagnosis of diabetes. In the absence of unequivocal hyperglycemia, results should be confirmed by repeat testing. In a patient with classic symptoms of hyperglycemia or hyperglycemic crisis, random plasma glucose results greater than or equal to 200 mg/dL meet the criteria for diagnosis of diabetes. Reference: Standards of Medical Care in Diabetes 2016, [place] [employer] Association. Diabetes Care. 2016.39(Suppl 1). BUN 24(H) 7 - 21 mg/dL 06/07/2018 8:31 PM [facility] Creatinine 0.91 0.58 - 0.96 mg/dL 06/07/2018 8:31 PM [facility] Sodium 139 136 - 144 mmol/L 06/07/2018 8:31 PM [facility] Potassium 5.1 3.7 - 5.1 mmol/L 06/07/2018 8:31 PM [facility] Chloride 100 97 - 105 mmol/L 06/07/2018 8:31 PM [facility] CO2 26 22 - 30 mmol/L 06/07/2018 8:31 PM [facility] Anion Gap 13 9 - 18 mmol/L 06/07/2018 8:31 PM EST [facility] Calcium 9.6 8.5 - 10.2 mg/dL 06/07/2018 8:31 PM EST [facility] eGFR- >60 06/07/2018 8:31 PM EST [facility] eGFR-All Other Races >60 . 06/07/2018 8:31 PM EST [facility] Comment: eGFR (Estimated GFR) Units of measure: mL/min/1.73 meters squared eGFR is derived from the reexpressed MDRD Study equation using the following parameters: serum creatinine, age, gender and race. The creatinine assay has been calibrated to be traceable to IDMS. An eGFR <60 mL/min/1.73m2 for >3 months is consistent with chronic kidney disease. Refer to KDOQI guidelines for clinical interpretation. In patients with unstable renal function, e.g. those with acute kidney injury, the eGFR may not accurately reflect actual GFR. Blood specimen (specimen) BLOOD SPECIMEN / Unknown 06/07/2018 11:00 AM EST 06/07/2018 11:03 AM EST us Avila Garsia MD LABORATORY Final Result [facility] [address] [place] [address] from Last 3 Months or Most Recently Relevant to Health Maintenance Insurance [facility] PPO Advance Directives Documents on File Type Date Recorded Patient Poultry Eviscerator Expl anation Advance Directive(s) 11/18/2016 6:54 AM Care Teams Field Laborer Relationship Specialty Start Date End Date Robert Cruz DO [address] [id number] PCP - General Internal Medicine 05/17/18
--- OUTSIDE RECORDS SUMMARY | 2024-09-21 06:51 | XMS_ITS | Clinical Summary ---
Author Organization [facility] Address [address] [place] [address] Care Team Providers Care Customs Opener Verifier Packer Name Role Phone Robert Cruz DO Primary Care Provider [phone] Allergies Active Allergy Reactions Criticality Noted Date Comments Meperidine Hcl Other (See Comments) 07/06/2024 Bottoms out blood pressure. Dhea Anaphylaxis High 07/06/2024 Respiratory arrest Sumatriptan Hives 07/06/2024 Iodine Strong Hives 07/06/2024 Latex Hives 07/06/2024 Not a food Medications clonazePAM (KLONOPIN) 1 MG tablet Take 1 tablet by mouth nightly as needed (Restless leg). Active citalopram (CELEXA) 40 MG tablet Take 1 tablet by mouth daily Active pravastatin (PRAVACHOL) 20 MG tablet Take 1 tablet by mouth daily Active levothyroxine (SYNTHROID) 125 MCG tablet Take 1 tablet by mouth daily Active etodolac (LODINE) 500 MG tablet Take 1 tablet by mouth 2 times daily 06/06/2024 Active glimepiride (AMARYL) 4 MG tablet Take 1 tablet by mouth daily (with breakfast) Active tiZANidine (ZANAFLEX) 4 MG tablet Take 1 tablet by mouth 2 times daily as needed Active atenolol (TENORMIN) 50 MG tablet Take 1 tablet by mouth daily Active HYDROcodone-chris taminophen (NORCO) 5-325 MG per tablet Take 1 tablet by mouth every 4-6 hours as needed for Pain. Active gabapentin (NEURONTIN) 100 MG capsule Take 2 capsules by mouth 2 times daily. 06/30/2024 Active metFORMIN (GLUCOPHAGE) 500 MG tablet Take 1 tablet by mouth 2 times daily (with meals) Active predniSONE (DELTASONE) 10 MG tablet Take 1 tablet by mouth daily Started on Tuesday, take 3 tabs daily x3days, 2 tabs daily x3 days, 1 tab daily x3days. Active olmesartan (BENICAR) 20 MG tablet Take 1 tablet by mouth nightly Active Active Problems Problem Noted Date Diagnosed Date Primary hypertension 07/11/2024 Type 2 diabetes mellitus, wi thout long-term current use of insulin 07/11/2024 Intractable back pain 07/06/2024 Spinal stenosis of lumbar re gion with neurogenic claudication 07/06/2024 Encounters Date Type Department Care Team Description 07/08/2024 4:25 PM EDT - 07/08/2024 6:41 PM EDT Surgery [facility] OR [address] [place] [address] Eloise Veliz MD L3-L5 DECOMPRESSION,L4-L5 FUSION 07/08/2024 4:22 PM EDT Anesthesia Event [facility] OR [address] [place] [address] Isreal Clark DO 07/06/2024 7:08 PM EDT - 07/11/2024 12:01 PM EDT Hospital Encounter [facility] Orthopedics [address] [place] [address] Jose Sharif MD Discharge Disposition: Home or Self Care 07/06/2024 Travel from Last 3 Months Social History Tobacco Use Types Packs/Day Years Used Date Smoking Tobacco: Never Smokeless Tobacco: Never Tobacco Cessation:Counseling Given: No Alcohol Use Standard Drinks/Week Comments Never 0 (1 standard drink = 0.6 oz pur e alcohol) [facility] Utilities Answer Date Recorded In the past 12 months has e [employer], gas, oil, or water [employer] threatened to shut off services in your home? No 07/06/2024 Hunger Vital Sign Answer Date Recorded Within the past 12 months, y ou worried that your food would run out before you got the money to buy more. Never true 07/07/19 25 Within the past 12 months, t he food you bought just didn't last and you didn't have money to get more. Never true 07/06/2024 PRAPARE - Transportation Answer Date Re corded In the past 12 months, has l ack of transportation kept you from medical appointments or from getting medications? No 06/23 In the past 12 months, has l ack of transportation kept you from meetings, work, or from getting things needed for daily living? No 07/06/2024 Housing Stability Vital Sign Answer Stephane e Recorded In the last 12 months, was t here a time when you were not able to pay the mortgage or rent on time? No 07/06/2024 In the past 12 months, how m any times have you moved where you were living? 0 07/06/2024 At any time in the past 12 m [facility], were you homeless or living in a alf (including now)? No 07/06/2024 Food Insecurity Answer Date Recorded Within the past 12 months, y ou worried that your food would run out before you got the money to buy more. 1 07/06/2024 Within the past 12 months, t he food you bought just didn't last and you didn't have money to get more. 1 07/06/2024 Interpersonal Safety Domain Source: IP Abuse Scr eening Answer Date Recorded Physical abuse Denies 07/06/2024 Verbal abuse Denies 07/06/2024 Emotional abuse Denies 07/06/2024 Financial abuse Denies 07/06/2024 Sexual abuse Denies 07/06/2024 Comments Unknown Sex and Gender Information Value Date Recorded Sex Assigned at Not on file Legal Sex Female 12:47 PM EST Gender Identity Not on file Sexual Orientation Not on file Last Filed Vital Signs Vital Sign Reading Time Taken Comments Blood Pressure 117/62 07/11/2024 8:30 AM EDT Pulse 88 07/11/2024 8:30 AM EDT Temperature 37 C (98.6 F) 07/11/2024 8:30 AM EDT Respiratory Rate 16 07/11/2024 8:30 AM EDT Oxygen Saturation 98% 07/11/2024 8:30 AM EDT Inhaled Oxygen Concentration - - Weight 79.4 kg (175 lb) 07/06/2024 8:16 PM EDT Height 154.9 cm (5' 1 ) 07/06/2024 8:16 PM EDT Body Mass Index 33.07 07/06/2024 8:16 PM EDT Plan of Treatment Health Maintenance Due Date Last Done Comments A1C test (Diabetic or Prediabetic) 1969 Diabetic foot exam 1969 Lipids 1969 Depression Screen 1971 HIV screen 1974 Diabetic Alb to Cr ratio (uACR) test 1977 Diabetic retinal exam 1977 Hepatitis C screen 1977 DTaP/Tdap/Td vaccine (1 - Tdap) 1978 Pneumococcal 50+ years Vaccine (1 of 2 - PCV) 1978 Pap smear 1980 Cervical cancer screen 1989 HPV (without or with Pap) 1989 Breast cancer screen 1999 Colonoscopy 2004 Colorectal Cancer Screen 2004 FIT/FOBT: Average risk 2004 Fecal-DNA (Cologuard): Average risk 2004 Sigmoidoscopy/CT colonography 2004 Shingles vaccine (1 of 2) 2009 DEXA (modify frequency per FRAX score) 2014 COVID-19 Vaccine ( season) 2023 Annual Wellness Visit (Medicare Advantage) 04/25/2024 GFR test (Diabetes, CKD 3-4, OR last GFR 15-59) 07/11/2025 07/11/2024, 07/10/2024, 07/09/2024, Additional history exists Respiratory Syncytial Virus (RSV) or age 60 yrs+ (1 - 1-dose 75+ series) 2034 Flu vaccine Completed 02/08/2024 Hepatitis A vaccine Aged Out No longe r eligible based on patient's age to complete this topic Hepatitis B vaccine Aged Out No longe r eligible based on patient's age to complete this topic Hib vaccine Aged Out No longer eligi ble based on patient's age to complete this topic Meningococcal (ACWY) vaccine Aged Out No longer eligible based on patient's age to complete this topic Meningococcal B vaccine Aged Out No l onger eligible based on patient's age to complete this topic Polio vaccine Aged Out No longer elig ible based on patient's age to complete this topic Medical Devices Implanted Type Area [employer] Specialist Device Identifier Shelf Expiration Date Model / Serial / Lot Screw Spnl L45mm Dia6.5mm Post Thoracolumbosacral Co Chrom - [id number] Implanted:Qty: 2 on 07/08/2024 by Eloise Veliz MD at [facility] N/A: Spine Lumbar [employer]WD [id number] / / Screw Spnl L40mm Dia6.5mm Post Thoracolumbosacral Co Chrom - [id number] Implanted:Qty: 2 on 07/08/2024 by Eloise Veliz MD at [facility] N/A: Spine Lumbar [employer]WD [id number] / / Set Scr Spnl L6mm Dia5.5mm Ti Brk Off Svetlana W/ Detach Cdh - [id number] Implanted:Qty: 4 on 07/08/2024 by Eloise Veliz MD at [facility] N/A: Spine Lumbar [employer]-WD [id number] / / Evan Spnl L35mm Dia5.5mm Ant Post Thoracolumbosacral Ti - [id number] Implanted:Qty: 2 on 07/08/2024 by Eloise Veliz MD at [facility] N/A: Spine Lumbar [employer]WD [id number] / / Procedures Procedure Name Priority Date/Time Associated Diagnosis Comments GLOMERULAR FILTRATION RATE, ESTIMATED Routine 07/11/2024 6:43 AM EDT ANION GAP Routine 07/11/2024 6:43 AM EDT HEMOGLOBIN AND HEMATOCRIT Routine 07/11/2024 6:43 AM EDT BASIC METABOLIC PANEL Routine 07/11/2024 6:43 AM EDT POCT GLUCOSE Routine 07/11/2024 6:23 AM EDT POCT GLUCOSE Routine 07/10/2024 8:18 PM EDT POCT GLUCOSE Routine 07/10/2024 3:59 PM EDT POCT GLUCOSE Routine 07/10/2024 10:57 AM EDT GLOMERULAR FILTRATION RATE, ESTIMATED Routine 07/10/2024 6:58 AM EDT ANION GAP Routine 07/10/2024 6:58 AM EDT HEMOGLOBIN AND HEMATOCRIT Routine 07/10/2024 6:58 AM EDT BASIC METABOLIC PANEL Routine 07/10/2024 6:58 AM EDT POCT GLUCOSE Routine 07/10/2024 6:30 AM EDT POCT GLUCOSE Routine 07/09/2024 9:00 PM EDT POCT GLUCOSE Routine 07/09/2024 7:54 PM EDT POCT GLUCOSE Routine 07/09/2024 4:03 PM EDT POCT GLUCOSE Routine 07/09/2024 11:05 AM EDT POTASSIUM Routine 07/09/2024 8:19 AM EDT POCT GLUCOSE Routine 07/09/2024 6:15 AM EDT GLOMERULAR FILTRATION RATE, ESTIMATED Routine 07/09/2024 5:39 AM EDT ANION GAP Routine 07/09/2024 5:39 AM EDT HEMOGLOBIN AND HEMATOCRIT Routine 07/09/2024 5:39 AM EDT BASIC METABOLIC PANEL Routine 07/09/2024 5:39 AM EDT POCT GLUCOSE Routine 07/08/2024 8:44 PM EDT XR LUMBAR SPINE 1 VW Routine 07/08/2024 6:19 PM EDT XR LUMBAR SPINE 1 VW Routine 07/08/2024 5:11 PM EDT LUMBAR LAMINECTOMY DECOMPRESSION POSTERIOR 07/08/2024 4:22 PM EDT Spinal stenosis of lumbar region, unspecified whether neurogenic claudication present POCT GLUCOSE Routine 07/08/2024 3:37 PM EDT POCT GLUCOSE Routine 07/08/2024 10:54 AM EDT POCT GLUCOSE Routine 07/08/2024 6:40 AM EDT POCT GLUCOSE Routine 07/07/2024 8:12 PM EDT POCT GLUCOSE Routine 07/07/2024 3:39 PM EDT POCT GLUCOSE Routine 07/07/2024 10:44 AM EDT ANION GAP Routine 07/07/2024 10:30 AM EDT GLOMERULAR FILTRATION RATE, ESTIMATED Routine 07/07/2024 10:30 AM EDT CBC Routine 07/07/2024 10:30 AM EDT BASIC METABOLIC PANEL Routine 07/07/2024 10:30 AM EDT POCT GLUCOSE Routine 07/07/2024 6:41 AM EDT XR CHEST (2 VW) Routine 07/07/2024 12:09 AM EDT GLOMERULAR FILTRATION RATE, ESTIMATED Routine 07/06/2024 8:46 PM EDT ANION GAP Routine 07/06/2024 8:46 PM EDT APTT Routine 07/06/2024 8:46 PM EDT PROTIME-INR Routine 07/06/2024 8:46 PM EDT COMPREHENSIVE METABOLIC PANEL W/ REFLEX TO MG FOR LOW K Routine 07/06/2024 8:46 PM EDT CBC WITH AUTO DIFFERENTIAL Routine 07/06/2024 8:46 PM EDT EKG 12-LEAD Routine 07/06/2024 8:11 PM EDT POCT GLUCOSE Routine 07/06/2024 8:10 PM EDT from Last 3 Months Results * Anion Gap (07/11/2024 6:43 AM EDT) Only the most recent of5 resultswithin the time period is included. Anion Gap 10.0 8.0 - 16.0 meq/L 07/11/2024 7:16 AM EDT [facility] Comment: ANION GAP = Sodium -(Chloride + CO2) Performed at [facility] [address] [place] [address] 07/11/2024 6:43 AM EDT 07/11/2024 6:48 AM EDT us Dank CHAPMAN CHEMISTRY ORDERABLES Final Resu lt [facility] [address] [place] [address], [facility] [phone] [facility] [address] [place] [address], [facility] [phone] * Glomerular Filtration Rate, Estimated (07/11/2024 6:43 AM EDT) Only the most recent of5 resultswithin the time period is included. Pathologist [facility] Sajan Jama Filt Rate 62 >60 ml/min/1.7 3m2 07/11/2024 7:21 AM EDT [facility] Comment: Pediatric calculator link https://www.kidney.org/professionals/kdoqi/gfr_calculatorped Effective Jan 25, [...] that affects renal tubular secretion. Performed at [facility] [address] [place] [address] 07/11/2024 6:43 AM EDT 07/11/2024 6:43 AM EDT Dank CHAPMAN CHEMISTRY ORDERABLES Final Resu lt [facility] [address] [place] [address], [facility] [phone] [facility] [address] [place] [address] * (ABNORMAL) Hemoglobin and Hematocrit (07/11/2024 6:43 AM EDT) Only the most recent of3 resultswithin the time period is included. [facility] Hemoglobin 10.8(L) 12.0 - 16.0 gm/dl 07/11/2024 7:16 AM EDT [facility] Hematocrit 33.4(L) 37.0 - 47.0 % 07/11/2024 7:16 AM EDT [facility] Comment:Performed at [facility] [address] [place] [address] BLOOD SPECIMEN / Unknown 07/11/2024 6:43 AM EDT 07/11/2024 6:48 AM EDT us Dank CHAPMAN HEMATOLOGY ORDERABLES Final Res ult [facility] [address] [place] [address], [facility] [phone] [facility] [address] [place] [address], [facility] [phone] * (ABNORMAL) Basic Metabolic Panel (07/11/2024 6:43 AM EDT) Only the most recent of4 resultswithin the time period is included. Sodium 135 135 - 145 meq/L 07/11/2024 7:05 AM EDT [facility] Potassium 4.7 3.5 - 5.2 meq/L 07/11/2024 7:05 AM EDT [facility] Comment: Low level specimen hemolysis is present as indicated by the interference index on the Yamilet analyzer. The reported K+ level may be falsely increased. If clinically warranted, recollection of the specimen is suggested. Chloride 103 98 - 111 meq/L 07/11/2024 7:05 AM EDT [facility] CO2 22 22 - 29 meq/L 07/11/2024 7:16 AM EDT [facility] Glucose 166(H) 74 - 109 mg/dL 07/11/2024 7:16 AM EDT [facility] BUN 16 8 - 23 mg/dL 07/11/2024 7:16 AM EDT [facility] Creatinine 1.0(H) 0.5 - 0.9 mg/dL 07/11/2024 7:16 AM EDT [facility] Calcium 8.9 8.8 - 10.2 mg/dL 07/11/2024 7:16 AM EDT [facility] Comment:Performed at [facility] [address] [place] [id number] BLOOD SPECIMEN / Unknown 07/11/2024 6:43 AM EDT 07/11/2024 6:48 AM EDT Dank CHAPMAN CHEMISTRY ORDERABLES Final Resu lt [facility] [address] [place] [address], [facility] [phone] [facility] [address] [place] [address], [facility] [phone] * (ABNORMAL) POCT glucose (07/11/2024 6:23 AM EDT) Only the most recent of19 resultswithin the time period is included. POC Glucose 177(H) 70 - 108 mg/dl 07/11/2024 6:23 AM EDT [facility] Comment:Performed at [facility] [address] [place] [address] BLOOD SPECIMEN / Unknown 07/11/2024 6:23 AM EDT 07/11/2024 6:35 AM EDT Dank CHAPMAN POINT OF CARE TEST ORDERABLES F inal Result Performing Organization Address [facility]/ZIP Co de Phone Number [facility] [address] [place] [phone], [facility] [phone] [facility] [address] [place] [address], [facility] [phone] * Potassium (07/09/2024 8:19 AM EDT) Potassium 4.7 3.5 - 5.2 meq/L 07/09/2024 8:47 AM EDT [facility] Comment:Performed at [facility] [address] [place] [id number] Blood BLOOD SPECIMEN / Unknown 07/09/2024 8:19 AM EDT 07/09/2024 8:23 AM EDT us Jose Sharif MD CHEMISTRY ORDERABLES Final Resu lt [facility] [address] [place] [address], [facility] [phone] [facility] [address] [place] [address], [facility] [phone] * XR LUMBAR SPINE 1 VW (07/08/2024 6:19 PM EDT) Only the most recent of2 resultswithin the time period is included. Anatomical Region Laterality Modality T-spine, L-spine, Pelvis Compute d Radiography 07/08/2024 6:24 PM EDT Impressions 07/08/2024 6:28 PM EDT 1. Evidence of posterior fusion at L4-L5. Please refer to operative report for further details. This report has been created using voice recognition software. It may contain minor errors which are inherent in voice recognition technology. Electronically signed by Dr. Jerrod Betts Narrative 07/08/2024 6:28 PM EDT PROCEDURE: XR LUMBAR SPINE 1 VW CLINICAL [...] loss of vertebral body height is seen. Procedure Note Sivakumar Betts MD - 07/08/2024 PROCEDURE: XR LUMBAR SPINE 1 VW CLINICAL INFORMATION: surgery. L4-L5 fusion COMPARISON: Earlier examination from same day. TECHNIQUE: Lumbar spine single crossfire lateral intraoperative view FINDINGS: Single crossfire lateral intraoperative view of the lumbar spine wasobtained. Posterior lumbar fusion hardware is demonstrated at the L4-5 region. The visualized surgical hardware appears grossly intact. The osseousframework appears satisfactory in alignment. No loss of vertebral body height isseen. IMPRESSION: 1. Evidence of posterior fusion at L4-L5. Please refer to operative reportfor further details. This report has been created using voice recognition software. It maycontain minor errors which are inherent in voice recognition technology. Electronically signed by Dr. Jerrod Betts Eloise Veliz MD IMG DIAGNOSTIC IMAGING ORD ERABLES Final Result * CBC (07/07/2024 10:30 AM EDT) WBC 8.6 4.8 - 10.8 thou/mm3 07/07/2024 11:15 AM T [facility] RBC 4.73 4.20 - 5.40 mill/mm3 07/07/2024 11:15 AM T [facility] Hemoglobin 13.5 12.0 - 16.0 gm/dl 07/07/2024 11:15 AM [facility] Hematocrit 41.6 37.0 - 47.0 % 07/07/2024 11:15 AM [facility] MCV 87.9 81.0 - 99.0 fL 07/07/2024 11:15 AM [facility] MCH 28.5 26.0 - 33.0 pg 07/07/2024 11:15 AM EDT [facility] MCHC 32.5 32.2 - 35.5 gm/dl 07/07/2024 11:15 AM EDT [facility] RDW-CV 12.6 11.5 - 14.5 % 07/07/2024 11:15 AM [facility] RDW-SD 40.3 35.0 - 45.0 fL 07/07/2024 11:15 AM [facility] Platelets 236 130 - 400 thou/mm3 07/07/2024 11:15 AM T [facility] MPV 9.6 9.4 - 12.4 fL 07/07/2024 11:15 AM EDT [facility] Comment:Performed at [facility] [address] [place] [address] Blood BLOOD SPECIMEN / Unknown 07/07/2024 10:30 AM EDT 07/07/2024 10:53 AM EDT us Jose Sharif MD HEMATOLOGY ORDERABLES Final Res ult [facility] [address] [place] [address], [facility] [phone] [facility] [address] [phone] * XR CHEST (2 VW) (07/07/2024 12:09 AM EDT) Anatomical Region Laterality Modality Chest Computed Radiogr aphy Chest 07/07/2024 1:22 AM EDT Impressions 07/07/2024 2:22 AM EDT Impression: No acute cardiopulmonary disease. This document has been electronically signed by: Kj Epps MD on 07/07/2024 02:22 AM Narrative 07/07/2024 2:22 AM EDT Chest X-ray: 2 views. Indication: Pulmonary congestion. Comparison: None Findings: The lungs are well aerated. No focal consolidation, or pleural effusion. The cardiac silhouette is normal in size. Bony thorax is grossly intact. Bilateral shoulder arthroplasty. External metallic density versus surgical hardware projects on the lower cervical spine. Procedure Note Kj Epps MD - 07/07/2024 Chest X-ray: 2 views. Indication: Pulmonary congestion. [...] Kj Epps MD on 07/07/2024 02:22 AM Jose Sharif MD IMG DIAGNOSTIC IMAGING ORDERABL ES Final Result * (ABNORMAL) Comprehensive Metabolic Panel w/ Reflex to MG (07/06/2024 8:46 PM EDT) Glucose 259(H) 74 - 109 mg/dL 07/06/2024 9:50 PM EDT [facility] Creatinine 1.3(H) 0.5 - 0.9 mg/dL 07/06/2024 9:50 PM EDT [facility] BUN 43(H) 8 - 23 mg/dL 07/06/2024 9:50 PM EDT [facility] Sodium 136 135 - 145 meq/L 07/06/2024 9:39 PM EDT [facility] Potassium reflex Magnesium 5.0 3.5 - 5.2 meq/L 07/06/2024 9:39 PM EDT [facility] Comment: Low level specimen hemolysis is present as indicated by the interference index on the Yamilet analyzer. The reported K+ level may be falsely increased. If clinically warranted, recollection of the specimen is suggested. Chloride 96(L) 98 - 111 meq/L 07/06/2024 9:39 PM EDT [facility] CO2 26 22 - 29 meq/L 07/06/2024 9:50 PM EDT [facility] Calcium 9.6 8.8 - 10.2 mg/dL 07/06/2024 9:50 PM EDT [facility] AST 23 10 - 35 U/L 07/06/2024 9:50 PM EDT [facility] Alkaline Phosphatase 65 35 - 104 U/L 07/06/2024 9:50 PM EDT [facility] Total Protein 7.2 6.4 - 8.3 g/dL 07/06/2024 9:50 PM EDT [facility] Albumin 4.3 3.4 - 4.9 g/dL 07/06/2024 9:50 PM EDT [facility] Total Bilirubin 0.4 0.3 - 1.2 mg/dL 07/06/2024 9:50 PM EDT [facility] ALT 24 10 - 35 U/L 07/06/2024 9:50 PM EDT [facility] Comment:Performed at [facility] [address] [place] [address] Blood BLOOD SPECIMEN / Unknown 07/06/2024 8:46 PM EDT 07/06/2024 9:11 PM EDT us Jose Sharif MD CHEMISTRY ORDERABLES Final Resu lt Performing Organization Address City/State/[facility] Co de Phone Number [facility] [address] [place] [address], [facility] [phone] [facility] [address] [place] [address] * (ABNORMAL) CBC with Auto Differential (07/06/2024 8:46 PM EDT) WBC 11.6(H) 4.8 - 10.8 thou/mm3 07/06/2024 9:20 PM EDT [facility] RBC 4.83 4.20 - 5.40 mill/mm3 07/06/2024 9:20 PM EDT [facility] Hemoglobin 13.8 12.0 - 16.0 gm/dl 07/06/2024 9:20 PM EDT [facility] Hematocrit 42.6 37.0 - 47.0 % 07/06/2024 9:20 PM EDT [facility] MCV 88.2 81.0 - 99.0 fL 07/06/2024 9:20 PM EDT [facility] MCH 28.6 26.0 - 33.0 pg 07/06/2024 9:20 PM EDT [facility] MCHC 32.4 32.2 - 35.5 gm/dl 07/06/2024 9:20 PM EDT [facility] RDW-CV 12.5 11.5 - 14.5 % 07/06/2024 9:20 PM EDT [facility] RDW-SD 39.9 35.0 - 45.0 fL 07/06/2024 9:20 PM EDT [facility] Platelets 274 130 - 400 thou/mm3 07/06/2024 9:20 PM EDT [facility] MPV 9.7 9.4 - 12.4 fL 07/06/2024 9:20 PM EDT [facility] Seg Neutrophils 68.3 % 9:20 PM EDT [facility] Lymphocytes 24.0 % 07/06/2024 9:20 PM EDT [facility] Monocytes % 6.8 % 07/06/2024 9:20 PM EDT [facility] Eosinophils 0.3 % 07/06/2024 9:20 PM EDT [facility] Basophils 0.2 % 07/06/2024 9:20 PM EDT [facility] Immature Granulocytes % 0.4 % 07/06/2024 9:20 PM EDT [facility] Neutrophils Absolute 7.9(H) 1.8 - 7.7 thou/mm3 07/06/2024 9:20 PM EDT [facility] Lymphocytes Absolute 2.8 1.0 - 4.8 thou/mm3 07/06/2024 9:20 PM EDT [facility] Monocytes Absolute 0.8 0.4 - 1.3 thou/mm3 07/06/2024 9:20 PM EDT [facility] Eosinophils Absolute 0.0 0.0 - 0.4 thou/mm3 07/06/2024 9:20 PM EDT [facility] Basophils Absolute 0.0 0.0 - 0.1 thou/mm3 07/06/2024 9:20 PM EDT [facility] Immature Grans (Abs) 0.05 0.00 - 0.07 thou/mm3 07/06/2024 9:20 PM EDT [facility] nRBC 0 /100 wbc 07/06/2024 9:20 PM EDT [facility] Comment:Performed at [facility] [address] [place] [address] Blood BLOOD SPECIMEN / Unknown 07/06/2024 8:46 PM EDT 07/06/2024 9:11 PM EDT Jose Sharif MD HEMATOLOGY ORDERABLES Final Res ult [facility] [address] [place] [address] [facility] [address] [place] [address] * APTT (07/06/2024 8:46 PM EDT) aPTT 29.5 22.0 - 38.0 seconds 07/06/2024 9:39 PM EDT [facility] [facility] Comment: Therapeutic Heparin Reference Range= 60-95 seconds (corresponds to 0.3 to 0.7 u/mL Anti-Xa factor activity) Performed at [facility] [address] [place] [address] Blood BLOOD SPECIMEN / Unknown 07/06/2024 8:46 PM EDT 07/06/2024 9:11 PM EDT Jose Sharif MD HEMATOLOGY ORDERABLES Final Res ult Performing Organization Address [facility] Co de Phone Number [facility] [address] [place] [address], [facility] [phone] [facility] [address] [place] [address], [facility] [phone] * Protime-INR (07/06/2024 8:46 PM EDT) INR 1.02 0.85 - 1.13 07/06/2024 9:36 PM EDT [facility] Comment: ---------INDICATION INR Reference Range DVT, PE, AF, AMI, tissue heart valve 2.0 to 3.0 Mechanical prosthetic valves 2.5 to 3.5 Performed at [facility] [address] [place] [address] Blood BLOOD SPECIMEN / Unknown 07/06/2024 8:46 PM EDT 07/06/2024 9:11 PM EDT Jose Sharif MD HEMATOLOGY ORDERABLES Final Res ult Performing Organization Address [facility] Co de Phone Number [facility] [address] [place] [address], [facility] [phone] [facility] [address] [place] [address], [facility] [phone] * EKG 12 lead (07/06/2024 8:11 PM EDT) Ventricular Rate 68 BPM [facility] Atrial Rate 68 BPM [facility] P-R Interval 146 ms [facility] QRS Duration 82 ms [facility] Q-T Interval 422 ms [facility] QTc Calculation (Bazett) 448 ms [facility] P [place] 58 degrees [facility] R [place] 67 degrees [facility] T [place] 66 degrees [facility] 07/06/2024 8:11 PM EDT 07/06/2024 11:10 PM EDT Narrative [facility] - 07/06/2024 11:10 PM EDT Normal sinus rhythm Possible Left atrial enlargement ST & T wave abnormality, consider anterior ischemia Abnormal ECG No previous ECGs available Clinical correlation is indicated Confirmed by Kp Rodriges ([id number]) on 07/06/2024 11:10:52 PM Procedure Note Kp Rodriges MD - 07/06/2024 Normal sinus rhythm Possible Left atrial enlargement ST & T wave abnormality, consider anterior ischemia Abnormal ECG No previous ECGs available Clinical correlation is indicated Confirmed by Kp Rodriges ([id number]) on 07/06/2024 11:10:52 PM us Jose Sharif MD ECG ORDERABLES Final Result [facility] from Last 3 Months Insurance [employer] Advance Directives Documents on File Type Date Recorded Patient Manager Spa Expl anation ACP-Advance Directive 07/13/2024 10:35 PM [employer]-Advance Directive 07/13/2024 10:35 PM * Full Code (Latest Code Status on File) Date Activated Date Inactivated Comments 07/06/2024 7:55 PM 07/11/2024 2:07 PM Healthcare Agents on File Name Relationship Healthcare Agent Relationshi p Communication Babatunde Fuentes Spouse Primary Decision Maker Care Teams Customs Opener Verifier Packer Relationship Specialty Start Date End Date Robert Cruz DO [address] [place] [address] PCP - General Internal Medicine 07/06/24
--- OUTSIDE RECORDS SUMMARY | 2024-09-21 06:53 | XMS_ITS | CCD ---
Author Organization [facility] Care Team Providers Care Manager Relocation Name Role Phone REECE GARSIAIC New Admitting Unavailable RICSHANAE JENNA T Attending Unavailable LISANDRO MEEKS Consulting [...] Unavailable Robert Villasenor DO Primary Care Provider [phone] KOLE, SOOUREMI A Admitting Unavailable MINESH SHARIFMI A Attending Unavailable TERA TRAN Referring Unavailable ROBERT VILLASENOR Primary Care Unavailable ELOISE VELIZ Consulting Unavailable Allergies Allergy Classification Reported Allergen(s) Allergy Type Date of Onset Reaction(s) Facility (3 sources) Contrast media; Translations: [CONTRAST DYE] Propensity to adverse reactions to drug (disorder) 09-30-19 11 [facility] Repository (2 sources) HYDROmorphone; Translations: [HYDROMORPHONE (BULK)] Drug Allergy 08-17-19 17 [facility] Repository (20 sources) Latex; Translations: [LATEX] Propensity to adverse reactions to drug (disorder) 09-30-19 11 [facility] Repository (2 sources) Meperidine; Translations: [MEPERIDINE (PF)] Drug Allergy 09-30-19 11 [facility] Repository (2 sources) Povidone-Iodine; Translations: [POVIDONE-IODINE] Drug Allergy 10-21-19 17 [facility] Repository (2 sources) SUMAtriptan; Translations: [SUMATRIPTAN SUCCINATE] Drug Allergy 09-30-19 11 [facility] Repository (2 sources) INFLUENZA VACCINE TRI-SP 09-10; Translations: [INFLUENZA VACCINE TRI-SP 09-10] Propensity to adverse reactions to drug (disorder) 09-30-19 11 [facility] Repository (3 sources) DHE; Translations: [DHE] Propensity to adverse reactions to drug (disorder) 10-24-19 13 [facility] Repository (20 sources) HYDROmorphone Drug Allergy 12-20-19 24 Unknown, Unknown Reaction [facility] (20 sources) Iodine; Translations: [iodine] Drug Allergy 10-24-19 13 Unknown, Unknown Reaction [facility] Repository (20 sources) Meperidine Drug Allergy 12-20-19 24 Unknown, Unknown Reaction [facility] (20 sources) SUMAtriptan Drug Allergy 12-20-19 24 [facility] (20 sources) Fluad Drug allergy 12-20-19 24 Unknown, Unknown Reaction [facility] (18 sources) DHEA Drug allergy 07-07-19 25 Anaphylaxis [employer] [facility] Other (2 sources) HYDROmorphone; Translations: [Dilaudid] Drug Allergy 10-24-19 13 [facility] Repository (1 source) Meperidine Drug Allergy 10-24-19 13 [facility] Repository (2 sources) Plasmin; Translations: [Imitrex] Drug Allergy 10-24-19 13 [facility] Repository (12 sources) influenza A virus (H1N1) antigen / influenza A virus (H3N2) antigen / influenza B virus antigen Drug Allergy 11-21-19 14 Comment:FLU VACCINE [employer] [facility] Other (12 sources) Contraindication to Flu Injection Propensity to adverse reactions 03-07-20 Comment:advers e rxn/side effects [employer] [facility] Other (3 sources) patient allergy list reviewed by nurse or physicia Propensity to adverse reactions 12-22-19 Comment:Done [employer] [facility] Other (7 sources) Calcium Drug Allergy 12-20-19 24 Unknown Reaction [facility] (7 sources) Calcium Carbonate Drug Allergy 12-20-19 24 Unknown Reaction [facility] (7 sources) prasterone (DHEA) Allergy to substance 12-20-19 24 Unknown Reaction [facility] (7 sources) Fluad Quadrivalent Allergy to substance 04-29-19 24 Comment:FLU VACCINE [facility] Comment on above: Onset Date: 11/21/19 14 (1 source) Meperidine; Translations: [Demerol HCl] Drug Allergy [facility] Repository (1 source) flu vaccines; Translations: [flu vaccines] Propensity to adverse reactions (disorder) [facility] Repository (1 source) Iodine Strong Propensity to adverse reactions to drug 07-07-19 Hives [facility] [employer] (1 source) Meperidine Drug Allergy 07-07-19 25 Other (See Comments) [facility] Current Medications Medication Drug Class(es) Dates Sig (Normalized) Sig (Original) acetaminophen 325 mg oral tablet (2 sources) Start: 07-08-2024 Start: 07-06-2024 acetaminophen (TYLENOL) tablet 650 mg acetaminophen 325 mg / HYDROcodone bitartrate 5 mg oral tablet (8 sources) Opioid Agonist Start: 07-06-2024 HYDROcodone-ac etaminophen (NORCO) 5-325 MG per tablet 1 tablet Start: 07-04-2024 End: 07-18-2024 take 1 tablet by mouth every four to six hours as needed for pain Hydrocodone-Acetaminophen 5-325 mg table t Active 1 TAB PO EVERY 4-6 HOURS as needed for pain 28 7 July 18, 2024 etodolac 500 mg oral tablet (20 sources) [...] daily as needed for headache 60 30 April 06, 2024 11:06am July 08, 2024 [...] for injection by adding 1 mL of change management manager-supplied sterile diluent or sterile water for injection [...] Magnesium Aspart,Citrate,Ox ashutosh 400 mg magnesium capsule (5 sources) Start: 12-20-2023 take 1 capsule by mouth once daily Magnesium Aspart,Citrate,Oxid e 400 mg magnesium capsule Active 400 MG PO Daily December 20, 2023 12:00am Start: 12-20-2023 take 1 capsule by [facility] once daily Magnesium Aspart,Citrate,Oxide 400 [...] disintegrating tablet 4 mg polyethylene glycol 3350 48556 mg powder for oral solution (1 source) [...] Jul, Active predniSONE 20 mg oral tablet (5 sources) Start: 07-25-2024 take 1 tablet by mouth three times daily Prednisone 20 mg tablet Active 20 MG PO As Directed 9 July 25, 2024 12:00am 1 tab tid w/ food x 3 days Start: 05-09-2023 predniSONE 20 MG 1 tablet Orally tid w/ food x 1 day then bid w/ food x 2 days then qd w/ food x 2 days for 5 days Apr, Active take 1 tablet by fredrick once daily, then take 3 tablets by mouth once daily, then take 2 tablets by mouth once daily, then take 1 tablet by mouth once daily predniSONE (DELTASONE) 10 MG tablet Take 1 tablet by mouth daily Started on Tuesday, take 3 tabs daily x3days, 2 tabs daily x3 days, 1 tab daily x3days. Suspended pregabalin 50 mg oral capsule (1 source) Start: 07-25-2024 take 1 capsule by mouth twice daily Pregabalin 50 mg capsule Active 50 MG PO Twice daily 6 July 25, 2024 12:00am rizatriptan 10 mg oral tablet (14 sources) Serotonin-1b and Serotonin-1d Receptor Agonist Start: 12-20-2023 take 3 tablets by mouth every twenty-four hours as needed Rizatriptan (Maxalt) 10 mg tablet Active 10 MG PO EVERY 2-4 HOURS as needed December 20, 2023 12:00am do not exceed 3 doses per 24 hrs Start: 11-04-2022 take 1 tablet by fredrick th every two hours as needed for headache Maxalt-DENTAL TECHNICIAN METAL 10 MG 1 tablet Orally PRN headache, [...] (Normalized) Sig (Original) 20 ml albumin human, retirement 250 mg/ml injection (1 source) Human Serum [...] hypoproteinemia amitriptyline hydrochloride 10 mg oral tablet (14 sources) Tricyclic Antidepressant Start: 12-20-2023 End: 12-20-2023 [...] 50 mg, Oral, DAILY, First dose on Tue07/07/24 at 1000, Until Discontinued, Hold for HR less then 60, On hold since Tue07/10/2024 at 1409 until manually unheld Start: 03-28-2024 take 1 tablet by fredrick once daily Atenolol 50 mg tablet Active [...] 30 minutes before bedtime Start: 06-13-2023 End: 08-27-2024 take 1.5 mg by mouth once daily [...] [facility] once daily as needed clonazePAM (KLONOPIN) [...] Post-op docusate sodium 50 mg / sennosides, retirement 8.6 mg oral tablet (1 source) Start: [...] dose on Tue07/07/24 at 1000, Until Discontinued Start: 06-30-2024 take [...] Opioid Reversal naratriptan 2.5 mg oral tablet (14 sources) Serotonin-1b and Serotonin-1d Receptor Agonist Start: [...] 20 mL/lumen, Post-[place] [address] mg powder for oral suspension (1 source) [...] Date Documented Date Episodic/Chronic Acute posthemorrhagic anemia (6 sources) Acute posthemorrhagic anemia; Translations: [Acute posthemorrhagic anemia] 07-13-2024 Episodic Anxiety disorders (20 sources) Generalized anxiety disorder; Translations: [Generalized anxiety disorder] 06-13-2023 Chronic Blindness and vision defects (4 sources) Visual hallucinations; Translations: [Visual hallucinations] 07-15-2024 [...] E Codes: Adverse effects of medical drugs (4 sources) Adverse effect of other parasympatholytics [anticholinergics and antimuscarinics] and spasmolytics, subsequent encounter; Translations: [Sedative adverse reaction] Episodic Esophageal disorders (17 sources) Gastro-esophageal reflux disease with esophagitis; Translations: [Gastroesophageal reflux disease with esophagitis without hemorrhage] Chronic Essential hypertension (20 sources) Essential hypertension; Translations: [Essential (primary) hypertension] Onset: 2 Chronic Fluid and electrolyte disorders (8 sources) Low blood pressure; Translations: [Hypovolemia] 07-13-2024 [...] left breast, unspecified quadrant] 02-24-2024 Episodic Osteoarthritis (8 sources) Primary osteoarthritis, left shoulder; Translations: [Primary osteoarthritis, right shoulder] Onset: 9 07-04-2024 Chronic Other connective tissue disease (5 sources) History of cervical spine fusion; Translations: [Arthrodesis status] 02-24-2024 Episodic Other connective tissue disease (4 sources) Arthrodesis status; Translations: [Arthrodesis status] 06-25-2024 [...] Basophils (Bld) [#/Vol] Automated basophil count 0.0-0.1 [facility] Basophils/100 WBC Auto (Bld) on 07-18-2024 Basophils/100 WBC (Bld) Automated basophil % 0.2-2.0 [facility] Eosinophils/100 WBC Auto (Bl d)on 07-18-2024 Eosinophils/100 WBC (Bld) Automated eosinophil % 0.9-7.0 [facility] Erythrocyte distribution wid th Auto (RBC) [Ratio]on 07-18-2024 Erythrocyte distribution width (RBC) [Ratio] Erythrocyte distribution width [Ratio] by Automated count 11.0-15.0 [facility] Hematocrit Auto (Bld) [Volum e fraction]on 07-18-2024 Hematocrit (Bld) [Volume fraction] Hematocrit [Volume Fraction] of Blood by Automated count Low 36.0-48.0 [facility] Hemoglobin [Mass/volume] in Bloodon 07-18-2024 Hemoglobin (Bld) [Mass/Vol] Hemoglobin [Mass/volume] in Blood Low 12.0-16.0 [facility] Laboratory - Hematology and Cell countson 07-18-2024 Immature granulocytes/100 WBC (Bld) 0.6 % High 0.0-0.5 [facility] Leukocytes [#/volume] correc chip for nucleated erythrocytes in Blood by Automated counon 07-18-2024 WBC corrected for nucl RBC Auto (Bld) [#/Vol] Leukocytes [#/volume] corrected for nucleated erythrocytes in Blood by Automated coun 4.0-11.0 [facility] Lymphocytes Auto (Bld) [#/Vo l]on 07-18-2024 Lymphocytes (Bld) [#/Vol] Lymphocytes [#/volume] in Blood by Automated count 1.2-3.8 [facility] Lymphocytes/100 WBC Auto (Bl d)on 07-18-2024 Lymphocytes/100 WBC (Bld) Lymphocytes/100 leukocytes in Blood by Automated count 20.5-60.0 [facility] MCH Auto (RBC) [Entitic mass ]on 07-18-2024 MCH (RBC) [Entitic mass] MCH [Entitic mass] by Automated count 26.7-34.0 [facility] MCHC Auto (RBC) [Mass/Vol]on 07-18-2024 MCHC (RBC) [Mass/Vol] MCHC [Mass/volume] by Automated count 29.9-35.2 [facility] MCV Auto (RBC) [Entitic vol] on 07-18-2024 MCV (RBC) [Entitic vol] MCV [Entitic volume] by Automated count 81.0-99.0 [facility] Monocytes Auto (Bld) [#/Vol] on 07-18-2024 Monocytes (Bld) [#/Vol] Automated blood monocyte count 0.3-0.8 [facility] Monocytes/100 WBC Auto (Bld) on 07-18-2024 Monocytes/100 WBC (Bld) Automated monocyte % 1.7-12.0 [facility] Neutrophils Auto (Bld) [#/Vo l]on 07-18-2024 Neutrophils (Bld) [#/Vol] Neutrophils [#/volume] in Blood by Automated count 1.4-6.5 [facility] Neutrophils/100 WBC Auto (Bl d)on 07-18-2024 Neutrophils/100 WBC (Bld) Automated neutrophil % 43.0-75.0 [facility] No Panel Informationon 07-18 Eosinophils # (Auto) 0.3 10 3/uL 0.0-0.7 [facility] Immature Granulocyte # (Auto) 0.03 10 3/uL 0.00-0.03 [facility] Platelet mean volume Auto (B ld) [Entitic vol]on 07-18-2024 Platelet mean volume (Bld) [Entitic vol] Platelet mean volume [Entitic volume] in Blood by Automated count Low 9.5-13.5 [facility] Platelets Auto (Bld) [#/Vol] on 07-18-2024 Platelets (Bld) [#/Vol] Platelets [#/volume] in Blood by Automated count 150-450 [facility] RBC Auto (Bld) [#/Vol]on RBC (Bld) [#/Vol] Erythrocytes [#/volu me] in Blood by Automated count Low 4.20-5.40 [facility] Basophils Auto (Bld) [#/Vol] on 07-12-2024 Basophils (Bld) [#/Vol] Automated basophil count 0.0-0.1 [facility] Basophils/100 WBC Auto (Bld) on 07-12-2024 Basophils/100 WBC (Bld) Automated basophil % 0.2-2.0 [facility] Eosinophils/100 WBC Auto (Bl d)on 07-12-2024 Eosinophils/100 WBC (Bld) Automated eosinophil % 0.9-7.0 [facility] Erythrocyte distribution wid th Auto (RBC) [Ratio]on 07-12-2024 Erythrocyte distribution width (RBC) [Ratio] Erythrocyte distribution width [Ratio] by Automated count 11.0-15.0 [facility] Estimated glomerular filtrat ion rate (GFR) non- Americanon 07-12-2024 GFR/1.73 sq M.predicted among non-blacks MDRD (S/P/Bld) [Vol rate/Area] Estimated glomerular filtration rate (GFR) non- Low >=60 mL/min/1.73m 2 [facility] Hematocrit Auto (Bld) [Volum e fraction]on 07-12-2024 Hematocrit (Bld) [Volume fraction] Hematocrit [Volume Fraction] of Blood by Automated count Low 36.0-48.0 [facility] Hemoglobin [Mass/volume] in Bloodon 07-12-2024 Hemoglobin (Bld) [Mass/Vol] Hemoglobin [Mass/volume] in Blood Low 12.0-16.0 [facility] Laboratory - Chemistry and C hemistry - challengeon 07-12-2024 Calcium [Mass/Vol] 8.6 mg/dL 8.5-10.1 [facility] Chloride [Moles/Vol] 102 mmol/L 98-107 [facility] CO2 [Moles/Vol] 24.7 mmol/L 21.0-32.0 [facility] Creatinine [Mass/Vol] 1.94 mg/dL High 0.55-1.02 [facility] GFR/1.73 sq M.predicted MDRD (S/P/Bld) [Vol rate/Area] 31 mL/min/{1.73_m2} Low >=60 mL/min/1.73m 2 [facility] Glucose [Mass/Vol] 203 mg/dL High 74-106 [facility] Potassium [Moles/Vol] 4.6 mmol/L 3.5-5.1 [facility] Sodium [Moles/Vol] 137 mmol/L 136-145 [facility] Urea nitrogen [Mass/Vol] 24.0 mg/dL High 7.0-18.0 [facility] Urea nitrogen/Creatinine [Mass ratio] 12.4 mg/mg [facility] Laboratory - Hematology and Cell countson 07-12-2024 Immature granulocytes/100 WBC (Bld) 1.8 % High 0.0-0.5 [facility] Leukocytes [#/volume] correc chip for nucleated erythrocytes in Blood by Automated counon 07-12-2024 WBC corrected for nucl RBC Auto (Bld) [#/Vol] Leukocytes [#/volume] corrected for nucleated erythrocytes in Blood by Automated coun 4.0-11.0 [facility] Lymphocytes Auto (Bld) [#/Vo l]on 07-12-2024 Lymphocytes (Bld) [#/Vol] Lymphocytes [#/volume] in Blood by Automated count 1.2-3.8 [facility] Lymphocytes/100 WBC Auto (Bl d)on 07-12-2024 Lymphocytes/100 WBC (Bld) Lymphocytes/100 leukocytes in Blood by Automated count 20.5-60.0 [facility] MCH Auto (RBC) [Entitic mass ]on 07-12-2024 MCH (RBC) [Entitic mass] MCH [Entitic mass] by Automated count 26.7-34.0 [facility] MCHC Auto (RBC) [Mass/Vol]on 07-12-2024 MCHC (RBC) [Mass/Vol] MCHC [Mass/volume] by Automated count 29.9-35.2 [facility] MCV Auto (RBC) [Entitic vol] on 07-12-2024 MCV (RBC) [Entitic vol] MCV [Entitic volume] by Automated count 81.0-99.0 [facility] Monocytes Auto (Bld) [#/Vol] on 07-12-2024 Monocytes (Bld) [#/Vol] Automated blood monocyte count 0.3-0.8 [facility] Monocytes/100 WBC Auto (Bld) on 07-12-2024 Monocytes/100 WBC (Bld) Automated monocyte % 1.7-12.0 [facility] Neutrophils Auto (Bld) [#/Vo l]on 07-12-2024 Neutrophils (Bld) [#/Vol] Neutrophils [#/volume] in Blood by Automated count 1.4-6.5 [facility] Neutrophils/100 WBC Auto (Bl d)on 07-12-2024 Neutrophils/100 WBC (Bld) Automated neutrophil % 43.0-75.0 [facility] No Panel Informationon 07-12 Eosinophils # (Auto) 0.2 10 3/uL 0.0-0.7 [facility] Immature Granulocyte # (Auto) 0.13 10 3/uL High 0.00-0.03 [facility] Platelet mean volume Auto (B ld) [Entitic vol]on 07-12-2024 Platelet mean volume (Bld) [Entitic vol] Platelet mean volume [Entitic volume] in Blood by Automated count 9.5-13.5 [facility] Platelets Auto (Bld) [#/Vol] on 07-12-2024 Platelets (Bld) [#/Vol] Platelets [#/volume] in Blood by Automated count 150-450 [facility] RBC Auto (Bld) [#/Vol]on RBC (Bld) [#/Vol] Erythrocytes [#/volu me] in Blood by Automated count Low 4.20-5.40 [facility] Serum or plasma anion gap de terminationon 07-12-2024 Anion gap [Moles/Vol] Serum or plasma anion gap determination [facility] ANION GAPon 07-11-2024 Anion gap [Moles/Vol] 10.0 mmol/L Normal 8.0-16.0 [facility] Comment on above: Result Comment: ANIO N GAP = Sodium -(Chloride + CO2) Performed By: #### P OCGL #### [facility] [address] [place] [address] Anion Gapon 07-11-2024 Anion gap [Moles/Vol] 10 mmol/L 8.0 - 16.0 meq/L [facility] Comment on above: ANION GAP = Sodium - (Chloride + CO2) Performed at [facility] [address] [place] [address] BASIC METABOL PANELon 2024 Calcium [Mass/Vol] 8.9 mg/dL Normal 8.8-10.2 [facility] Comment on above: Performed By: #### P OCGL #### [facility] [address] [place] [address] CO2 [Moles/Vol] 22 mmol/L Normal 22-29 [facility] Comment on above: Performed By: #### P OCGL #### [facility] [address] [address] Creatinine [Mass/Vol] 1.0 mg/dL High 0.5-0.9 [facility] Comment on above: Performed By: #### P OCGL #### [facility] [address] [place] [address] Glucose [Mass/Vol] 166 mg/dL High 74-109 [facility] Comment on above: Performed By: #### P OCGL #### [facility] [address] [place] [address] Urea nitrogen [Mass/Vol] 16 mg/dL Normal 8-23 [facility] Comment on above: Performed By: #### P OCGL #### [facility] [address] [place] [address] Chloride [Moles/Vol] 103 mmol/L Normal 98-111 [facility] Comment on above: Performed By: #### P OCGL #### [facility] [address] [place] [address] Potassium [Moles/Vol] 4.7 mmol/L Normal 3.5-5.2 [facility] Comment on above: Result Comment: Low level specimen hemolysis is present as indicated by the interference index on the Yamilet analyzer. ??The reported K+ level may be falsely increased. If clinically warranted, recollection of the specimen is suggested. Performed By: #### P OCGL #### [facility] [employer] [address] [place] [address] Sodium [Moles/Vol] 135 mmol/L Normal 135-145 [facility] Comment on above: Performed By: #### P OCGL #### [facility] [employer] [address] [place] [address] Basic metabolic 2000 panelon 07-11-2024 Calcium [Mass/Vol] 8.9 mg/dL 8.8 - 10. 2 mg/dL [facility] Comment on above: Performed at [facility] [address] [place] [address] Chloride [Moles/Vol] 103 mmol/L 98 - 11 1 meq/L [facility] CO2 [Moles/Vol] 22 mmol/L 22 - 29 meq/L [facility] Creatinine [Mass/Vol] 1.0 mg/dL High 0.5 - 0.9 mg/dL [facility] Glucose [Mass/Vol] 166 mg/dL High 74 - 109 mg/dL [facility] Interpretation and review of laboratory results Abnormal [facility] Potassium [Moles/Vol] 4.7 mmol/L 3.5 - 5.2 meq/L [facility] Comment on above: Low level specimen h emolysis is present as indicated by the interference index on the Yamilet analyzer. The reported K+ level may be falsely increased. If clinically warranted, recollection of the specimen is suggested. Sodium [Moles/Vol] 135 mmol/L 135 - 145 meq/L [facility] Urea nitrogen [Mass/Vol] 16 mg/dL 8 - 23 mg/dL [facility] GFR, ESTIMATEDon 07-11-2024 GFR/1.73 sq M.predicted MDRD (S/P/Bld) [Vol rate/Area] 62 mL/min/{1.73_m2} Normal >60 [facility] Comment on above: Pediatric calculator link https://www.kidney.org/professionals/kdoqi/gfr_calculatorped [...] that affects renal tubular secretion. Performed at [facility] [place] [address] Result Comment: Pedi atric calculator link https://www.kidney.org/professionals/kdoqi/gfr_calculatorped [...] secretion. Performed By: #### P OCGL #### [facility] [address] [place] [address] GLUCOSE POCon 07-11-2024 Glucose [Mass/Vol] 177 mg/dL High 70-108 [facility] [employer] [facility] Comment on above: Performed at [facility] [address] [place] [address] Performed By: #### P OCGL #### [facility] [address] [place], [place] [id number] Glucose Auto test strip (Bld ) [Mass/Vol]on 07-11-2024 Interpretation and review of laboratory results Abnormal [facility] [employer] [facility] HGB,HCTon 07-11-2024 Hematocrit (Bld) [Volume fraction] 33.4 % Low 37.0-47.0 [facility] Comment on above: Performed at [facility] [address] [place] [address] Performed By: #### P OCGL #### [facility] [address] [place] [address] Hemoglobin (Bld) [Mass/Vol] 10.8 g/dL Low 12.0-16.0 [facility] Comment on above: Performed By: #### P OCGL #### [facility] [address] [place] [address] Hemoglobin and Hematocrit pa bhavna (Bld)on 07-11-2024 Interpretation and review of laboratory results Abnormal [facility] No Panel Informationon 07-11 [facility] ANION GAPon 07-10-2024 Anion gap [Moles/Vol] 8.0 mmol/L Normal 8.0-16.0 [facility] Comment on above: Result Comment: ANIO N GAP = Sodium -(Chloride + CO2) Performed By: #### P OCGL #### [facility] [employer] [address] [place] [address] Anion Gapon 07-10-2024 Anion gap [Moles/Vol] 8 mmol/L 8.0 - 16.0 meq/L [facility] Comment on above: ANION GAP = Sodium - (Chloride + CO2) Performed at [facility] [address] [place] [address] BASIC METABOL PANELon 2024 Calcium [Mass/Vol] 8.8 mg/dL Normal 8.8-10.2 [facility] Comment on above: Performed By: #### P OCGL #### [facility] [address] [place] [address] CO2 [Moles/Vol] 26 mmol/L Normal 22-29 [facility] Comment on above: Performed By: #### P OCGL #### [facility] [address] [place] [address] Creatinine [Mass/Vol] 1.1 mg/dL High 0.5-0.9 [facility] Comment on above: Performed By: #### P OCGL #### [facility] [address] [place] [address] Glucose [Mass/Vol] 198 mg/dL High 74-109 [facility] Comment on above: Performed By: #### P OCGL #### [facility] [address] [place] [address] Urea nitrogen [Mass/Vol] 24 mg/dL High 8-23 [facility] Comment on above: Performed By: #### P OCGL #### [facility] [address] [place] [address] Chloride [Moles/Vol] 101 mmol/L Normal 98-111 [facility] Comment on above: Performed By: #### P OCGL #### [facility] [address] [place] [address]57 Potassium [Moles/Vol] 4.6 mmol/L Normal 3.5-5.2 [facility] Comment on above: Performed By: #### P OCGL #### [facility] [address] [place] [address]75 Sodium [Moles/Vol] 135 mmol/L Normal 135-145 [facility] Comment on above: Performed By: #### P OCGL #### [facility] [address] [address] Basic metabolic 2000 panelon 07-10-2024 Calcium [Mass/Vol] 8.8 mg/dL 8.8 - 10. 2 mg/dL [facility] Comment on above: Performed at [facility] [address] [place] [address] Chloride [Moles/Vol] 101 mmol/L 98 - 11 1 meq/L [facility] CO2 [Moles/Vol] 26 mmol/L 22 - 29 meq/L [facility] Creatinine [Mass/Vol] 1.1 mg/dL High 0.5 - 0.9 mg/dL [facility] Glucose [Mass/Vol] 198 mg/dL High 74 - 109 mg/dL [facility] Potassium [Moles/Vol] 4.6 mmol/L 3.5 - 5.2 meq/L [facility] Sodium [Moles/Vol] 135 mmol/L 135 - 145 meq/L [facility] Urea nitrogen [Mass/Vol] 24 mg/dL High 8 - 23 mg/dL [facility] GFR, ESTIMATEDon 07-10-2024 GFR/1.73 sq M.predicted MDRD (S/P/Bld) [Vol rate/Area] 56 mL/min/{1.73_m2} Abnormal >60 [facility] Comment on above: Pediatric calculator link [...] that affects renal tubular secretion. Performed at [facility] [address] [place] [address] Result Comment: Pedi atric calculator link https://www.kidney.org/professionals/kdoqi/gfr_calculatorped [...] secretion. Performed By: #### P OCGL #### [facility] [address] [place] [address] GLUCOSE POCon 07-10-2024 Glucose [Mass/Vol] 267 mg/dL High 70-108 [facility] Comment on above: Performed at [facility] [address] [place] [address] Performed By: #### P OCGL #### [facility] [address] [place] [address] Glucose [Mass/Vol] 154 mg/dL High 70-108 [facility] Comment on above: Performed at [facility] [address] [place] [address] Performed By: #### P OCGL #### [facility] [address] [place] [address] Glucose [Mass/Vol] 302 mg/dL High 70-108 [facility] Comment on above: Performed at [facility] [address] [place] [address] Performed By: #### P OCGL #### [facility] [place] [address] Glucose [Mass/Vol] 205 mg/dL High 70-108 [facility] Comment on above: Performed at [facility] [address] [place] [address] Performed By: #### P OCGL #### [place] [address] Glucose Auto test strip (Bld ) [Mass/Vol]on 07-10-2024 Interpretation and review of laboratory results Abnormal [facility] Interpretation and review of laboratory results Abnormal [facility] Interpretation and review of laboratory results Abnormal [facility] Interpretation and review of laboratory results Abnormal [facility] HGB,HCTon 07-10-2024 Hematocrit (Bld) [Volume fraction] 32.2 % Low 37.0-47.0 [facility] Comment on above: Performed at [facility] [address] [place] [address] Performed By: #### P OCGL #### [place] [address] Hemoglobin (Bld) [Mass/Vol] 10.0 g/dL Low 12.0-16.0 [facility] Comment on above: Performed By: #### P OCGL #### [place] [address] Hemoglobin and Hematocrit pa bhavna (Bld)on 07-10-2024 Hemoglobin (Bld) [Mass/Vol] 10 g/dL Low [facility] Interpretation and review of laboratory results Abnormal [facility] No Panel Informationon 07-10 Interpretation and review of laboratory results Abnormal [facility] ANION GAPon 07-09-2024 Anion gap [Moles/Vol] 10.0 mmol/L Normal 8.0-16.0 [facility] Comment on above: Result Comment: ANIO N GAP = Sodium -(Chloride + CO2) Performed By: #### P OCGL #### [facility] [address] [place] [address] Anion Gapon 07-09-2024 Anion gap [Moles/Vol] 10 mmol/L 8.0 - 16.0 meq/L [facility] Comment on above: ANION GAP = Sodium - (Chloride + CO2) Performed at [facility] [address] [place] [address] BASIC METABOL PANELon 2024 Calcium [Mass/Vol] 8.3 mg/dL Low 8.8-10.2 [facility] Comment on above: Performed By: #### P OCGL #### [facility] [address] [place] [address] CO2 [Moles/Vol] 23 mmol/L Normal 22-29 [facility] Comment on above: Performed By: #### P OCGL #### [facility] [address] [place] [address] Creatinine [Mass/Vol] 1.1 mg/dL High 0.5-0.9 [facility] Comment on above: Performed By: #### P OCGL #### [facility] [address] [place] [address]77 Glucose [Mass/Vol] 197 mg/dL High 74-109 [facility] Comment on above: Performed By: #### P OCGL #### [facility] [address] [place] [address]77 Urea nitrogen [Mass/Vol] 21 mg/dL Normal 8-23 [facility] Comment on above: Performed By: #### P OCGL #### [facility] [address] [place] [address] 28[address] Chloride [Moles/Vol] 103 mmol/L Normal 98-111 [facility] Comment on above: Performed By: #### P OCGL #### [facility] [address] [place] [address] Potassium [Moles/Vol] 5.8 mmol/L High 3.5-5.2 [facility] Comment on above: Performed By: #### P OCGL #### [facility] [address] [place] [address] Sodium [Moles/Vol] 136 mmol/L Normal 135-145 [facility] Comment on above: Performed By: #### P OCGL #### [facility] [address] [place] [address] Basic metabolic 2000 panelon 07-09-2024 Calcium [Mass/Vol] 8.3 mg/dL Low 8.8 - 10. 2 mg/dL [facility] Comment on above: Performed at [facility] [address] [place] [address] Chloride [Moles/Vol] 103 mmol/L 98 - 11 1 meq/L [facility] CO2 [Moles/Vol] 23 mmol/L 22 - 29 meq/L [facility] Creatinine [Mass/Vol] 1.1 mg/dL High 0.5 - 0.9 mg/dL [facility] Glucose [Mass/Vol] 197 mg/dL High 74 - 109 mg/dL [facility] Potassium [Moles/Vol] 5.8 mmol/L High 3.5 - 5.2 meq/L [facility] Sodium [Moles/Vol] 136 mmol/L 135 - 145 meq/L [facility] Urea nitrogen [Mass/Vol] 21 mg/dL 8 - 23 mg/dL [facility] GFR, ESTIMATEDon 07-09-2024 GFR/1.73 sq M.predicted MDRD (S/P/Bld) [Vol rate/Area] 56 mL/min/{1.73_m2} Abnormal >60 [facility] Comment on above: Pediatric calculator link https://www.kidney.org/professionals/kdoqi/gfr_calculatorped [...] that affects renal tubular secretion. Performed at [facility] [address] [place] [address] Result Comment: Pedi atric calculator link https://www.kidney.org/professionals/kdoqi/gfr_calculatorped [...] secretion. Performed By: #### P OCGL #### [place] [address] GLUCOSE POCon 07-09-2024 Glucose [Mass/Vol] 211 mg/dL High 70-108 [facility] Comment on above: Performed at [facility] [place] [address] Performed By: #### P OCGL #### [place] [address] Glucose [Mass/Vol] 212 mg/dL High 70-108 [facility] Comment on above: Performed at [facility] [address] [place] [address] Performed By: #### P OCGL #### [place] [address] Glucose [Mass/Vol] 169 mg/dL High 70-108 [facility] Comment on above: Performed at [facility] [address] [place] [address] Performed By: #### P OCGL #### [place] [address] Glucose [Mass/Vol] 229 mg/dL High 70-108 [facility] Comment on above: Performed at [facility] [address] [place] [address] Performed By: #### P OCGL #### [place] [address] Glucose [Mass/Vol] 203 mg/dL High 70-108 [facility] Comment on above: Performed at [facility] [address] [place] [address] Performed By: #### P OCGL #### [place] [address] HGB,HCTon 07-09-2024 Hematocrit (Bld) [Volume fraction] 36.7 % Low 37.0-47.0 [facility] Comment on above: Performed at [facility] [address] [place] [address] Performed By: #### P OCGL #### [place] [address] Hemoglobin (Bld) [Mass/Vol] 11.9 g/dL Low 12.0-16.0 [facility] Comment on above: Performed By: #### P OCGL #### [facility] [address] [place] [address] No Panel Informationon 07-09 Interpretation and review of laboratory results Abnormal [facility] POTASSIUMon 07-09-2024 Potassium [Moles/Vol] 4.7 mmol/L Normal 3.5-5.2 [facility] Comment on above: Performed By: #### K P #### [facility] [address] [place] [address] Potassiumon 07-09-2024 Potassium [Moles/Vol] 4.7 mmol/L 3.5 - 5.2 meq/L [facility] Comment on above: Performed at [facility] [address] [place] [address] GLUCOSE POCon 07-08-2024 Glucose [Mass/Vol] 266 mg/dL High 70-108 [facility] Comment on above: Performed at [facility] [address] [place] [address] Performed By: #### P OCGL #### [facility] [place] [address] Glucose [Mass/Vol] 120 mg/dL High 70-108 [facility] Comment on above: Performed at [facility] [address] [place] [address] Performed By: #### P OCGL #### [facility] [address] [place] [address] Glucose [Mass/Vol] 105 mg/dL Normal 70-108 [facility] Comment on above: Performed at [facility] [address] [place] [address] Performed By: #### P OCGL #### [facility] [address] [place] [address] Glucose [Mass/Vol] 136 mg/dL High 70-108 [facility] Comment on above: Performed at [facility] [address] [place] [address] Performed By: #### P OCGL #### [facility] [address] [place] [address] Glucose Auto test strip (Bld ) [Mass/Vol]on 07-08-2024 Interpretation and review of laboratory results Abnormal [facility] Interpretation and review of laboratory results Abnormal [facility] Interpretation and review of laboratory results Abnormal [facility] XR LUMBAR SPINE 1 VWon 07-08 [...] Boo Headley MD 07/08/24 Final result Normal [facility] XR Lumbar spine Single viewo n 07-08-2024 1. Evidence of posterior fusion at L4-L5. Please refer to operative report for further details. This report has been created using voice recognition software. It may contain minor errors which are inherent in voice recognition technology. Electronically signed by Dr. Jerrod Betts [facility] Sivakumar Betts MD - 07/08/2024 PROCEDURE: [...] technology. Electronically signed by Dr. Boo Headley [facility] MOBILE LATERAL LUMBA R SPINE: CLINICAL INFORMATION: surgery. L3-L5 decompression. L4-L5- fusion COMPARISON: No prior study. TECHNIQUE: A single lateral mobile view of the lumbar spine was obtained For localization purposes. FINDINGS: 2 spinal needles are present posteriorly directed at the L4 and L5 levels. [facility] Boo Headley MD - 07/08/2024 MOBILE [...] viewO rdered By: Sivakumar Betts on 07-08-2024 [facility] Work Phone: XR Lumbar spine Single viewO rdered By: Boo Headley on 07-08-2024 [facility] Work Phone: ANION GAPon 07-07-2024 Anion gap [Moles/Vol] 14.0 mmol/L Normal 8.0-16.0 [facility] Comment on above: Result Comment: ANIO N GAP = Sodium -(Chloride + CO2) Performed By: #### B MP, EGFR1, CBCND, ANION #### [facility] [address] [place] [address] Anion Gapon 03-15-2025 Anion gap [Moles/Vol] 14 mmol/L 8.0 - 16.0 meq/L [facility] Comment on above: ANION GAP = Sodium - (Chloride + CO2) Performed at [facility] [address] [place] [address] BASIC METABOL PANELon 2024 CO2 [Moles/Vol] 21 mmol/L Low 22-29 [facility] Comment on above: Performed By: #### B MP, EGFR1, CBCND, ANION #### [facility] [address] [place] [address] Creatinine [Mass/Vol] 1.0 mg/dL High 0.5-0.9 [facility] Comment on above: Performed By: #### B MP, EGFR1, CBCND, ANION #### [address] [address] Glucose [Mass/Vol] 172 mg/dL High 74-109 [facility] Comment on above: Performed By: #### B MP, EGFR1, CBCND, ANION #### [address] [address] Urea nitrogen [Mass/Vol] 33 mg/dL High 8-23 [facility] Comment on above: Performed By: #### B MP, EGFR1, CBCND, ANION #### [address] [address] Calcium [Mass/Vol] 9.2 mg/dL Normal 8.8-10.2 [facility] Comment on above: Performed By: #### B MP, EGFR1, CBCND, ANION #### [address] [address] Chloride [Moles/Vol] 103 mmol/L Normal 98-111 [facility] Comment on above: Performed By: #### B MP, EGFR1, CBCND, ANION #### [address] [address] Potassium [Moles/Vol] 4.4 mmol/L Normal 3.5-5.2 [facility] Comment on above: Result Comment: Low level specimen hemolysis is present as indicated by the interference index on the Yamilet analyzer. ??The reported K+ level may be falsely increased. If clinically warranted, recollection of the specimen is suggested. Performed By: #### B MP, EGFR1, CBCND, ANION #### [facility] [address] [place] [address] Sodium [Moles/Vol] 138 mmol/L Normal 135-145 [facility] Comment on above: Performed By: #### B MP, EGFR1, CBCND, ANION #### [facility] [address] [place] [address] Basic metabolic 2000 panelon 07-07-2024 Calcium [Mass/Vol] 9.2 mg/dL 8.8 - 10. 2 mg/dL [facility] Comment on above: Performed at [facility] [address] [place] [address] Chloride [Moles/Vol] 103 mmol/L 98 - 11 1 meq/L [facility] CO2 [Moles/Vol] 21 mmol/L Low 22 - 29 meq/L [facility] Creatinine [Mass/Vol] 1.0 mg/dL High 0.5 - 0.9 mg/dL [facility] Glucose [Mass/Vol] 172 mg/dL High 74 - 109 mg/dL [facility] Interpretation and review of laboratory results Abnormal [facility] Potassium [Moles/Vol] 4.4 mmol/L 3.5 - 5.2 meq/L [facility] Comment on above: Low level specimen h emolysis is present as indicated by the interference index on the [employer]ilet analyzer. The reported K+ level may be falsely increased. If clinically warranted, recollection of the specimen is suggested. Sodium [Moles/Vol] 138 mmol/L 135 - 145 meq/L [facility] Urea nitrogen [Mass/Vol] 33 mg/dL High 8 - 23 mg/dL [facility] CBCon 07-07-2024 Erythrocyte distribution width (RBC) [Entitic vol] 40.3 fL 35.0 - 45.0 fL [facility] Platelets (Bld) [#/Vol] 236 10*3/uL [facility] RBC (Bld) [#/Vol] 4.73 10*6/uL [facility] [employer] WBC (Bld) [#/Vol] 8.6 10*3/uL [facility] CBC NO DIFFERENTIALon 2024 Erythrocyte distribution width (RBC) [Ratio] 12.6 % Normal 11.5-14.5 [facility] Comment on above: Performed By: #### B MP, EGFR1, CBCND, ANION #### [place] [address] Hematocrit (Bld) [Volume fraction] 41.6 % Normal 37.0-47.0 [facility] Comment on above: Performed By: #### B MP, EGFR1, CBCND, ANION #### [place] [address] Hemoglobin (Bld) [Mass/Vol] 13.5 g/dL Normal 12.0-16.0 [facility] Comment on above: Performed By: #### B MP, EGFR1, CBCND, ANION #### [place] [address] MCH (RBC) [Entitic mass] 28.5 pg Normal 26.0-33.0 [facility] Comment on above: Performed By: #### B MP, EGFR1, CBCND, ANION #### [place] [address] MCHC (RBC) [Mass/Vol] 32.5 g/dL Normal 32.2-35.5 [facility] Comment on above: Performed By: #### B MP, EGFR1, CBCND, ANION #### [place] [address] MCV (RBC) [Entitic vol] 87.9 fL Normal 81.0-99.0 [facility] Comment on above: Performed By: #### B MP, EGFR1, CBCND, ANION #### [place] [address] PLATELET 236 thou/mm3 Normal 130-400 [facility] Comment on above: Performed By: #### B MP, EGFR1, CBCND, ANION #### [facility] [address] [place] [address] Platelet mean volume (Bld) [Entitic vol] 9.6 fL Normal 9.4-12.4 [facility] Comment on above: Performed at [facility] [address] [place] [address] Performed By: #### B MP, EGFR1, CBCND, ANION #### [facility] [address] [place] [address] RBC 4.73 mill/mm3 Normal 4.20-5.40 [facility] Comment on above: Performed By: #### B MP, EGFR1, CBCND, ANION #### [facility] [address] [place] [address] RDW-SD 40.3 fL Normal 35.0-45.0 [facility] Comment on above: Performed By: #### B MP, EGFR1, CBCND, ANION #### [facility] [address] [place] [address] WBC 8.6 thou/mm3 Normal 4.8-10.8 [facility] Comment on above: Performed By: #### B MP, EGFR1, CBCND, ANION #### [facility] [address] [place] [address] GFR, ESTIMATEDon 07-07-2024 GFR/1.73 sq M.predicted MDRD (S/P/Bld) [Vol rate/Area] 62 mL/min/{1.73_m2} Normal >60 [facility] Comment on above: Pediatric calculator link https://www.kidney.org/professionals/kdoqi/gfr_calculatorped [...] that affects renal tubular secretion. Performed at [place] [address] Result Comment: Pedi atric calculator link https://www.kidney.org/professionals/kdoqi/gfr_calculatorped [...] #### B MP, EGFR1, CBCND, ANION #### [place] [address] GLUCOSE POCon 07-07-2024 Glucose [Mass/Vol] 271 mg/dL High 70-108 [facility] Comment on above: Performed at [facility] [address] [place] [address] Performed By: #### P OCGL #### [place] [address] Glucose [Mass/Vol] 188 mg/dL High 70-108 [facility] Comment on above: Performed at [facility] [address] [place] [address] Performed By: #### P OCGL #### [place] [address] Glucose [Mass/Vol] 174 mg/dL High 70-108 [facility] Comment on above: Performed at [facility] [address] [place] [address] Performed By: #### P OCGL #### [address] [address] Glucose [Mass/Vol] 76 mg/dL Normal 70-108 [facility] Comment on above: Performed at [facility] [address] [place] [address] Performed By: #### P OCGL #### [address] [address] Glomerular Filtration Rate, Estimatedon 07-07-2024 [facility] Glucose Auto test strip (Bld ) [Mass/Vol]on 07-07-2024 Interpretation and review of laboratory results Abnormal [facility] Interpretation and review of laboratory results Abnormal [facility] Interpretation and review of laboratory results Abnormal [facility] [employer] No Panel Informationon 07-07 [facility] XR CHEST (2 VW)on 07-07-2024 XR CHEST [...] Kj Epps MD 07/07/24 Final result Normal [facility] XR Chest 2 Viewson Impression: No acute cardiopulmonary disease. This document has been electronically signed by: Kj Epps MD on 07/07/2024 02:22 AM [facility] Chest X-ray: 2 views . Indication: Pulmonary congestion. Comparison: None Findings: The lungs are well aerated. No focal consolidation, or pleural effusion. The cardiac silhouette is normal in size. Bony thorax is grossly intact. Bilateral shoulder arthroplasty. External metallic density versus surgical hardware projects on the lower cervical spine. [facility] Kj Epps MD - [...] Anion gap [Moles/Vol] 14.0 mmol/L Normal 8.0-16.0 [facility] Comment on above: Result Comment: ANIO N GAP = Sodium -(Chloride + CO2) Performed By: #### P OCGL #### [place] [address] APTTon 07-06-2024 aPTT Coag (Bld) [Time] 29.5 s Normal 22.0-38.0 [facility] Comment on above: Result Comment: Ther apeutic Heparin Reference Range= 60-95 seconds (corresponds to 0.3 to 0.7 u/mL Anti-Xa factor activity) Performed By: #### P OCGL #### [place] [address] Anion Gapon 07-06-2024 Anion gap [Moles/Vol] 14 mmol/L 8.0 - 16.0 meq/L [facility] Comment on above: ANION GAP = Sodium - (Chloride + CO2) [place] [address] CBC WITH DIFFERENTIALon 06-23 ABS BASOPHILS 0.0 thou/mm3 Normal 0.0-0.1 [facility] Comment on above: Performed By: #### P OCGL #### [address] [address] ABS EOSINOPHILS 0.0 thou/mm3 Normal 0.0-0.4 [facility] Comment on above: Performed By: #### P OCGL #### [address] [address] ABS IMMATURE GRANS (IG) 0.05 thou/mm3 Normal 0.00-0.07 [facility] Comment on above: Performed By: #### P OCGL #### [address] [address] ABS LYMPHOCYTES 2.8 thou/mm3 Normal 1.0-4.8 [facility] Comment on above: Performed By: #### P OCGL #### [facility] [address] [place] [address] ABS MONOCYTES 0.8 thou/mm3 Normal 0.4-1.3 [facility] Comment on above: Performed By: #### P OCGL #### [address] [address] ABS NEUTROPHILS 7.9 thou/mm3 High 1.8-7.7 [facility] Comment on above: Performed By: #### P OCGL #### [address] [address] Basophils/100 WBC (Bld) 0.2 % Normal [facility] Comment on above: Performed By: #### P OCGL #### [address] [address] Eosinophils/100 WBC (Bld) 0.3 % Normal [facility] Comment on above: Performed By: #### P OCGL #### [address] [address] Erythrocyte distribution width (RBC) [Ratio] 12.5 % Normal 11.5-14.5 [facility] Comment on above: Performed By: #### P OCGL #### [address] [address] Hematocrit (Bld) [Volume fraction] 42.6 % Normal 37.0-47.0 [facility] Comment on above: Performed By: #### P OCGL #### [address] [address] Hemoglobin (Bld) [Mass/Vol] 13.8 g/dL Normal 12.0-16.0 [facility] Comment on above: Performed By: #### P OCGL #### [address] [address] IMMATURE GRANS (IG) 0.4 % Normal [facility] Comment on above: Performed By: #### P OCGL #### [address] [address] Lymphocytes/100 WBC (Bld) 24.0 % Normal [facility] Comment on above: Performed By: #### P OCGL #### [address] [address] MCH (RBC) [Entitic mass] 28.6 pg Normal 26.0-33.0 [facility] Comment on above: Performed By: #### P OCGL #### [address] [address] MCHC (RBC) [Mass/Vol] 32.4 g/dL Normal 32.2-35.5 [facility] Comment on above: Performed By: #### P OCGL #### [address] [address] MCV (RBC) [Entitic vol] 88.2 fL Normal 81.0-99.0 [facility] Comment on above: Performed By: #### P OCGL #### [address] [address] Monocytes/100 WBC (Bld) 6.8 % Normal [facility] Comment on above: Performed By: #### P OCGL #### [address] [address] Neutrophils/100 WBC (Bld) 68.3 % Normal [facility] Comment on above: Performed By: #### P OCGL #### [address] [address] NRBC 0 /100 wbc Normal [facility] Comment on above: Performed By: #### P OCGL #### [address] [address] PLATELET 274 thou/mm3 Normal 130-400 [facility] Comment on above: Performed By: #### P OCGL #### [address] [address] Platelet mean volume (Bld) [Entitic vol] 9.7 fL Normal 9.4-12.4 [facility] Comment on above: Performed By: #### P OCGL #### [address] [address] RBC 4.83 mill/mm3 Normal 4.20-5.40 [facility] Comment on above: Performed By: #### P OCGL #### [address] [address] RDW-SD 39.9 fL Normal 35.0-45.0 [facility] Comment on above: Performed By: #### P OCGL #### [address] [address] WBC 11.6 thou/mm3 High 4.8-10.8 [facility] Comment on above: Performed By: #### P OCGL #### [facility] [address] [place] [address] CBC with Auto Differentialon 07-06-2024 Basophils (Bld) [...] [facility] Comment on above: Performed at [facility] [address] [place] [address] Platelets (Bld) [#/Vol] 274 10*3/uL [facility] RBC (Bld) [#/Vol] 4.83 10*6/uL [facility] WBC (Bld) [#/Vol] 11.6 10*3/uL High [facility] COMP. METABOLIC PANELon 06-23 Albumin [Mass/Vol] 4.3 g/dL Normal 3.4-4.9 [facility] Comment on above: Performed By: #### P OCGL #### [employer] [address] [place] [address] ALP [Catalytic activity/Vol] 65 U/L Normal 35-104 [facility] Comment on above: Performed By: #### P OCGL #### [employer] [address] [place] [address] ALT [Catalytic activity/Vol] 24 U/L Normal 10-35 [facility] Comment on above: Performed By: #### P OCGL #### [employer] [address] [address] AST [Catalytic activity/Vol] 23 U/L Normal 10-35 [facility] Comment on above: Performed By: #### P OCGL #### [facility] [employer] [address] [address] Bilirubin [Mass/Vol] 0.4 mg/dL Normal 0.3-1.2 [facility] Comment on above: Performed By: #### P OCGL #### [facility] [employer] [address] [address] Calcium [Mass/Vol] 9.6 mg/dL Normal 8.8-10.2 [facility] Comment on above: Performed By: #### P OCGL #### [facility] [employer] [address] [address] CO2 [Moles/Vol] 26 mmol/L Normal 22-29 [facility] Comment on above: Performed By: #### P OCGL #### [facility] [employer] [address] [address] Creatinine [Mass/Vol] 1.3 mg/dL High 0.5-0.9 [facility] Comment on above: Performed By: #### P OCGL #### [facility] [employer] [address] [address] Glucose [Mass/Vol] 259 mg/dL High 74-109 [facility] Comment on above: Performed By: #### P OCGL #### [facility] [employer] [address] [address] Protein [Mass/Vol] 7.2 g/dL Normal 6.4-8.3 [facility] Comment on above: Performed By: #### P OCGL #### [employer] [address] [place] [address] Urea nitrogen [Mass/Vol] 43 mg/dL High 8-23 [facility] Comment on above: Performed By: #### P OCGL #### [facility] [employer] [address] [place] [address] Chloride [Moles/Vol] 96 mmol/L Low 98-111 [facility] Comment on above: Performed By: #### P OCGL #### [employer] [address] [address] POTASSIUM WITH REFLEX MG 5.0 meq/L Normal 3.5-5.2 [facility] Comment on above: Result Comment: Low level specimen hemolysis is present as indicated by the interference index on the Yamilet analyzer. ??The reported K+ level may be falsely increased. If clinically warranted, recollection of the specimen is suggested. Performed By: #### P OCGL #### [facility] [employer] [address] [address] Sodium [Moles/Vol] 136 mmol/L Normal 135-145 [facility] Comment on above: Performed By: #### P OCGL #### [address] [address] Comprehensive metabolic 2000 panelon 07-06-2024 Albumin BCG dye [Mass/Vol] 4.3 g/dL 3.4 - 4.9 g/dL [facility] ALP [Catalytic activity/Vol] 65 U/L 35 - 104 U/L [facility] ALT No additional P-5'-P [Catalytic activity/Vol] 24 U/L 10 - 35 U/L [facility] Comment on above: Performed at [facility] [address] [place] [address] AST [Catalytic activity/Vol] 23 U/L 10 - [...] [Moles/Vol] 5.0 mmol/L 3.5 - 5.2 meq/L [facility] Comment on above: Low level specimen h emolysis is present as indicated by the interference index on the Yamilet analyzer. The reported K+ level may be falsely increased. If clinically warranted, recollection of the specimen is suggested. Protein [Mass/Vol] 7.2 g/dL 6.4 - 8.3 g/dL [employer] Sodium [Moles/Vol] 136 mmol/L 135 - 145 meq/L [employer] Urea nitrogen [Mass/Vol] 43 mg/dL High 8 - 23 mg/dL [employer] EKG 12 leadOrdered By: Kp Rodriges on 07-06-2024 Atrial Rate 68 BPM [employer] Work Phone: P Bentley 58 degrees [employer] Work Phone: P-R Interval 146 ms [employer] Work Phone: Q-T Interval 422 ms [employer] Work Phone: QRS Duration 82 ms [employer] Work Phone: QTc Calculation (Bazett) 448 ms [employer] Work Phone: R Bentley 67 degrees [employer] Work Phone: T Bentley 66 degrees [employer] Work Phone: Ventricular Rate 68 BPM [employer] Work Phone: [employer] Work Phone: EKG 12 leadon 07-06-2024 Normal sinus rhythm Possible Left atrial enlargement ST & T wave abnormality, consider anterior ischemia Abnormal ECG No previous ECGs available Clinical correlation is indicated Confirmed by Kp Rodriges ([id number]) on 07/06/2024 11:10:52 PM [facility] STR MUSE Kp Rodriges MD - 07/06/2024 Normal sinus rhythm Possible Left atrial enlargement ST & T wave abnormality, consider anterior ischemia Abnormal ECG No previous ECGs available Clinical correlation is indicated Confirmed by Kp Rodriges ([id number]) on 07/06/2024 11:10:52 PM [facility] EKG 12-LEADon 07-06-2024 EKG 12-LEAD 68 68 146 82 [phone] 67 66 Normal sinus rhythm Possible Left atrial enlargement ST & T wave abnormality, consider anterior ischemia Abnormal ECG No previous ECGs available Clinical correlation is indicated Confirmed by Kp Rodriges ([id number]) on 07/06/2024 11:10:52 PM [email or web address]&Date= 06-07-2024&Time=20%3a11 %3a37%3a00&TestType=ECG &Site=3&OutputType=PDF& Ext=PDF Normal [facility] GFR, ESTIMATEDon 07-06-2024 GFR/1.73 sq M.predicted MDRD (S/P/Bld) [Vol rate/Area] 46 mL/min/{1.73_m2} Abnormal >60 [facility] Comment on above: Pediatric calculator link https://www.kidney.org/professionals/kdoqi/gfr_calculatorped [...] that affects renal tubular secretion. Performed at [facility] [address] [place] [id number] Result Comment: Soniya atric calculator link https://www.kidney.org/professionals/kdoqi/gfr_calculatorped [...] secretion. Performed By: #### P OCGL #### [employer] [address] [place], [place] [id number] GLUCOSE POCon 07-06-2024 Glucose [Mass/Vol] 280 mg/dL High 70-108 [facility] [employer] Comment on above: Performed at [facility] [address] [place] [address] Performed By: #### P OCGL #### [facility] [employer] [address] [place], [place] [id number] Glucose Auto test strip (Bld ) [Mass/Vol]on 07-06-2024 Interpretation and review of laboratory results Abnormal [facility] [employer] INR Coag (PPP) [Relative jackie e]on 07-06-2024 [facility] [employer] No Panel Informationon 07-06 Interpretation and review of laboratory results Abnormal [facility] [employer] PROTHOMBIN TIMEon 07-06-2024 INR Coag (Bld) [Relative time] 1.02 {INR} Normal 0.85-1.13 [facility] Comment on above: Result Comment: ---- -----INDICATION INR Reference Range DVT, PE, AF, AMI, tissue heart valve 2.0 to 3.0 Mechanical prosthetic valves 2.5 to 3.5 Performed By: #### P OCGL #### [facility] [employer] [address] [place] [address] Protime-INRon 07-06-2024 INR Coag (PPP) [Relative time] 1.02 {INR} 0.85 - 1.13 [facility] [employer] Comment on above: ---------INDICATION- INR Reference Range DVT, PE, AF, AMI, tissue heart valve 2.0 to 3.0 Mechanical prosthetic valves 2.5 to 3.5 Performed at [facility] [place] [address] aPTT Coag (Bld) [Time]on aPTT Coag (PPP) [Time] 29.5 s [facility] [employer] Comment on above: Therapeutic Heparin Reference Range= 60-95 seconds (corresponds to 0.3 to 0.7 u/mL Anti-Xa factor activity) Performed at [facility] [address] [place] [id number] [place] [address] Estimated glomerular filtrat ion rate (GFR) non- Americanon 06-27-2024 GFR/1.73 sq M.predicted among non-blacks MDRD (S/P/Bld) [Vol rate/Area] Estimated glomerular filtration rate (GFR) non- Low >=60 mL/min/1.73m 2 [facility] - Chemistry and C hemistry - challengeon 06-27-2024 Calcium [Mass/Vol] 9.8 mg/dL 8.5-10.1 [facility] Chloride [Moles/Vol] 101 mmol/L 98-107 [facility] CO2 [Moles/Vol] 28.6 mmol/L 21.0-32.0 [facility] Creatinine [Mass/Vol] 1.41 mg/dL High 0.55-1.02 [facility] GFR/1.73 sq M.predicted MDRD (S/P/Bld) [Vol rate/Area] 45 mL/min/{1.73_m2} Low >=60 mL/min/1.73m 2 [facility] Glucose [Mass/Vol] 66 mg/dL Low 74-106 [facility] Potassium [Moles/Vol] 5.1 mmol/L 3.5-5.1 [facility] Sodium [Moles/Vol] 139 mmol/L 136-145 [facility] Urea nitrogen [Mass/Vol] 29.0 mg/dL High 7.0-18.0 [facility] Urea nitrogen/Creatinine [Mass ratio] 20.6 mg/mg [facility] Bilirubin Ql (U) LARGE Abnormal NEGATIVE [facility] Glucose (U) [Mass/Vol] Negative NEGATIVE [facility] Ketones Ql (U) TRACE mg/dL Abnormal NEGATIVE [facility] pH (U) 5.5 [pH] 5.0-9.0 [facility] Specific gravity (U) [Rel density] 1.025 1.005-1.025 [facility] Urobilinogen Qn (U) 0.2 {Nela'U}/dL 0.2-1.0 [facility] - Specimen inform ationon 06-27-2024 Appearance (U) CLEAR CLEAR [facility] Color (U) YELLOW YELLOW [facility] - Urinalysison Leukocyte esterase Test strip Ql (U) Negative NEGATIVE [facility] Nitrite Ql (U) Negative NEGATIVE [facility] Protein Ql (U) Negative NEG/TRACE [facility] No Panel Informationon 06-27 Urine Microscopic Review NO [facility] Urine Occult Blood Negative NEGATIVE [facility] Serum or plasma anion gap de terminationon 06-27-2024 Anion gap [Moles/Vol] Serum or plasma anion gap determination [facility] No Panel Informationon 06-01 Miscellaneous Test COMMENT . [facility] Comment on above: Test Ordered: [id number] Aerobic Cult, Extended IncubAerobic Cult, Extended Incub [...] RRifampin STetracycline STrimethoprim/Sulfa SVancomycin SPerformed at: - [facility] [id number] Director: Noam Haskins PhD, Phone: [phone] Basophils Auto (Bld) [#/Vol] on 05-31-2024 Basophils (Bld) [#/Vol] Automated basophil count 0.0-0.1 [facility] Basophils/100 WBC Auto (Bld) on 05-31-2024 Basophils/100 WBC (Bld) Automated basophil % 0.2-2.0 [facility] Eosinophils/100 WBC Auto (Bl d)on 05-31-2024 Eosinophils/100 WBC (Bld) Automated eosinophil % 0.9-7.0 [facility] Erythrocyte distribution wid th Auto (RBC) [Ratio]on 05-31-2024 Erythrocyte distribution width (RBC) [Ratio] Erythrocyte distribution width [Ratio] by Automated count 11.0-15.0 [facility] Hematocrit Auto (Bld) [Volum e fraction]on 05-31-2024 Hematocrit (Bld) [Volume fraction] Hematocrit [Volume Fraction] of Blood by Automated count 36.0-48.0 [facility] Hemoglobin [Mass/volume] in Bloodon 05-31-2024 Hemoglobin (Bld) [Mass/Vol] Hemoglobin [Mass/volume] in Blood 12.0-16.0 [facility] - Hematology and Cell countson 05-31-2024 ESR (Bld) [Velocity] 7 mm/h <=30 [facility] Immature granulocytes/100 WBC (Bld) 0.2 % 0.0-0.5 [facility] Leukocytes [#/volume] correc chip for nucleated erythrocytes in Blood by Automated counon 05-31-2024 WBC corrected for nucl RBC Auto (Bld) [#/Vol] Leukocytes [#/volume] corrected for nucleated erythrocytes in Blood by Automated coun 4.0-11.0 [facility] Lymphocytes Auto (Bld) [#/Vo l]on 05-31-2024 Lymphocytes (Bld) [#/Vol] Lymphocytes [#/volume] in Blood by Automated count 1.2-3.8 [facility] Lymphocytes/100 WBC Auto (Bl d)on 05-31-2024 Lymphocytes/100 WBC (Bld) Lymphocytes/100 leukocytes in Blood by Automated count 20.5-60.0 [facility] MCH Auto (RBC) [Entitic mass ]on 05-31-2024 MCH (RBC) [Entitic mass] MCH [Entitic mass] by Automated count 26.7-34.0 [facility] MCHC Auto (RBC) [Mass/Vol]on 05-31-2024 MCHC (RBC) [Mass/Vol] MCHC [Mass/volume] by Automated count 29.9-35.2 [facility] MCV Auto (RBC) [Entitic vol] on 05-31-2024 MCV (RBC) [Entitic vol] MCV [Entitic volume] by Automated count 81.0-99.0 [facility] Monocytes Auto (Bld) [#/Vol] on 05-31-2024 Monocytes (Bld) [#/Vol] Automated blood monocyte count 0.3-0.8 [facility] Monocytes/100 WBC Auto (Bld) on 05-31-2024 Monocytes/100 WBC (Bld) Automated monocyte % 1.7-12.0 [facility] Neutrophils Auto (Bld) [#/Vo l]on 05-31-2024 Neutrophils (Bld) [#/Vol] Neutrophils [#/volume] in Blood by Automated count 1.4-6.5 [facility] Neutrophils/100 WBC Auto (Bl d)on 05-31-2024 Neutrophils/100 WBC (Bld) Automated neutrophil % 43.0-75.0 [facility] No Panel Informationon 05-31 C-Reactive Protein, Quantitative <0.50 mg/dL <=0.50 [facility] Eosinophils # (Auto) 0.1 10 3/uL 0.0-0.7 [facility] Immature Granulocyte # (Auto) 0.01 10 3/uL 0.00-0.03 [facility] Platelet mean volume Auto (B ld) [Entitic vol]on 05-31-2024 Platelet mean volume (Bld) [Entitic vol] Platelet mean volume [Entitic volume] in Blood by Automated count Low 9.5-13.5 [facility] Platelets Auto (Bld) [#/Vol] on 05-31-2024 Platelets (Bld) [#/Vol] Platelets [#/volume] in Blood by Automated count 150-450 [facility] RBC Auto (Bld) [#/Vol]on RBC (Bld) [#/Vol] Erythrocytes [#/volu me] in Blood by Automated count 4.20-5.40 [facility] Basophils Auto (Bld) [#/Vol] on 12-27-2023 Basophils (Bld) [#/Vol] 0.1 10 3/uL 0.0-0.1 [facility] Basophils/100 WBC Auto (Bld) on 12-27-2023 Basophils/100 WBC (Bld) 1.0 % 0.2-2.0 [facility] Cholesterol in LDL Calc [Mas s/Vol]on 12-27-2023 Cholesterol in LDL [Mass/Vol] 63.0 mg/dL [facility] Comment on above: <100 mg/dl [id number] 0-129 mg/dl NEAR OR ABOVE [id number] mg/dl BORDERLINE [id number] mg/dl HIGH>190 mg/dl VERY HIGH Cholesterol in VLDL Calc [Ma ss/Vol]on 12-27-2023 Cholesterol in VLDL [Mass/Vol] 45.8 mg/dL [facility] Eosinophils/100 WBC Auto (Bl d)on 12-27-2023 Eosinophils/100 WBC (Bld) 8.3 % High 0.9-7.0 [facility] Erythrocyte distribution wid th Auto (RBC) [Ratio]on 12-27-2023 Erythrocyte distribution width (RBC) [Ratio] 11.9 % 11.0-15.0 [facility] Estimated glomerular filtrat ion rate (GFR) non- Americanon 12-27-2023 GFR/1.73 sq M.predicted among non-blacks MDRD (S/P/Bld) [Vol rate/Area] 47 mL/min/{1.73_m2} Low >=60 [facility] Globulin Calc (S) [Mass/Vol] on 12-27-2023 Globulin (S) [Mass/Vol] 3.2 g/dL [facility] Glucose mean value [Mass/vol ume] in Blood Estimated from glycated hemoglobinon 12-27-2023 Average glucose Estimated from glycated hemoglobin (Bld) [Mass/Vol] 143 mg/dL [facility] Hematocrit Auto (Bld) [Volum e fraction]on 12-27-2023 Hematocrit (Bld) [Volume fraction] 39.7 % 36.0-48.0 [facility] Hemoglobin [Mass/volume] in Bloodon 12-27-2023 Hemoglobin (Bld) [Mass/Vol] 12.9 g/dL 12.0-16.0 [facility] - Chemistry and C hemistry - challengeon 12-27-2023 Albumin [Mass/Vol] 3.7 g/dL 3.4-5.0 [facility] ALP [Catalytic activity/Vol] 61 U/L 46-116 [facility] ALT [Catalytic activity/Vol] 36 U/L 14-59 [facility] AST [Catalytic activity/Vol] 24 U/L 15-37 [facility] Bilirubin [Mass/Vol] 0.6 mg/dL 0.2-1.0 [facility] Calcium [Mass/Vol] 9.2 mg/dL 8.5-10.1 [facility] Chloride [Moles/Vol] 101 mmol/L 98-107 [facility] Cholesterol [Mass/Vol] 146 mg/dL <=200 [facility] Cholesterol in HDL [Mass/Vol] 38 mg/dL Low 40-60 [facility] Comment on above: > or =60 mg/dl - LOW CARDIOVASCULAR RISK<40 mg/dl - HIGH CARDIOVASCULAR RISK CO2 [Moles/Vol] 26.8 mmol/L 21.0-32.0 [facility] Creatinine [Mass/Vol] 1.17 mg/dL High 0.55-1.02 [facility] GFR/1.73 sq M.predicted MDRD (S/P/Bld) [Vol rate/Area] 56 mL/min/{1.73_m2} Low >=60 [facility] Glucose [Mass/Vol] 138 mg/dL High 74-106 [facility] Potassium [Moles/Vol] 4.5 mmol/L 3.5-5.1 [facility] Protein [Mass/Vol] 6.9 g/dL 6.4-8.2 [facility] Sodium [Moles/Vol] 138 mmol/L 136-145 [facility] Triglyceride [Mass/Vol] 229 mg/dL High <=150 [facility] TSH Qn 0.834 m[IU]/L 0.358-3.740 [facility] Urea nitrogen [Mass/Vol] 23.0 mg/dL High 7.0-18.0 [facility] Urea nitrogen/Creatinine [Mass ratio] 19.7 mg/mg [facility] - Hematology and Cell countson 12-27-2023 HbA1c (Bld) [Mass fraction] 6.6 % High 4.5-6.2 [facility] Comment on above: ADA RECOMMENDED LIMI T 4.0 - 6.0ADA THERAPEUTIC TARGET < 7.0ACTION SUGGESTED> 7.0 Immature granulocytes/100 WBC (Bld) 0.4 % 0.0-0.5 [facility] Leukocytes [#/volume] correc chip for nucleated erythrocytes in Blood by Automated counon 12-27-2023 WBC corrected for nucl RBC Auto (Bld) [#/Vol] 5.2 10 3/uL 4.0-11.0 [facility] Lymphocytes Auto (Bld) [#/Vo l]on 12-27-2023 Lymphocytes (Bld) [#/Vol] 2.2 10 3/uL 1.2-3.8 [facility] Lymphocytes/100 WBC Auto (Bl d)on 12-27-2023 Lymphocytes/100 WBC (Bld) 42.1 % 20.5-60.0 [facility] MCH Auto (RBC) [Entitic mass ]on 12-27-2023 MCH (RBC) [Entitic mass] 28.5 pg 26.7-34.0 [facility] MCHC Auto (RBC) [Mass/Vol]on 12-27-2023 MCHC (RBC) [Mass/Vol] 32.5 g/dL 29.9-35.2 [facility] MCV Auto (RBC) [Entitic vol] on 12-27-2023 MCV (RBC) [Entitic vol] 87.8 fL 81.0-99.0 [facility] Monocytes Auto (Bld) [#/Vol] on 12-27-2023 Monocytes (Bld) [#/Vol] 0.3 10 3/uL 0.3-0.8 [facility] Monocytes/100 WBC Auto (Bld) on 12-27-2023 Monocytes/100 WBC (Bld) 6.4 % 1.7-12.0 [facility] Neutrophils Auto (Bld) [#/Vo l]on 12-27-2023 Neutrophils (Bld) [#/Vol] 2.2 10 3/uL 1.4-6.5 [facility] Neutrophils/100 WBC Auto (Bl d)on 12-27-2023 Neutrophils/100 WBC (Bld) 41.8 % Low 43.0-75.0 [facility] No Panel Informationon 12-26 Eosinophils # (Auto) 0.4 10 3/uL 0.0-0.7 [facility] Immature Granulocyte # (Auto) 0.02 10 3/uL 0.00-0.03 [facility] Platelet mean volume Auto (B ld) [Entitic vol]on 12-27-2023 Platelet mean volume (Bld) [Entitic vol] 9.6 fL 9.5-13.5 [facility] Platelets Auto (Bld) [#/Vol] on 12-27-2023 Platelets (Bld) [#/Vol] 190 10 3/uL 150-450 [facility] RBC Auto (Bld) [#/Vol]on RBC (Bld) [#/Vol] 4.52 10 6/uL 4.20-5.40 [facility] Serum or plasma albumin/glob ulin mass ratioon 12-27-2023 Albumin/Globulin [Mass ratio] 1.2 {ratio} [facility] Serum or plasma anion gap de terminationon 12-27-2023 Anion gap [Moles/Vol] 14.7 mmol/L [facility] Serum or plasma total choles terol/high density lipoprotein (HDL) cholesterol mass desiree 12-27-2023 Cholesterol.total/Ch olesterol in HDL [Mass ratio] 3.8 {ratio} [facility] Comment on above: 3.3 - 4.4 [...] BERNY QUISPE Date: 2022-08-24 07:19 Normal [facility] CBC AUTO DIFFon 03-30-2022 BASO # 0.0 103/ul Normal 0.0-0.1 [facility] Comment on above: Performed By: #### C BC #### [facility] [address] [place] [address] Dr. Rc Foster Basophils/100 WBC (Bld) 0.4 % Normal 0.2-2.0 [facility] Comment on above: Performed By: #### C BC #### [facility] [address] [place] [address] Dr. Rc Foster EO # 0.3 103/ul Normal 0.0-0.7 [facility] Comment on above: Performed By: #### C BC #### [facility] [address] [place] [address] Dr. Rc Foster Eosinophils/100 WBC (Bld) 4.9 % Normal 0.9-7.0 [facility] Comment on above: Performed By: #### C BC #### [facility] [address] [place] [address] Dr. Rc Foster Erythrocyte distribution width (RBC) [Ratio] 12.2 % Normal 11.0-15.0 [facility] Comment on above: Performed By: #### C BC #### [facility] [address] [place] [address] Dr. Rc Foster Hematocrit (Bld) [Volume fraction] 39.8 % Normal 36.0-48.0 [facility] Comment on above: Performed By: #### C BC #### [facility] [address] [place] [address] Dr. Rc Foster Hemoglobin (Bld) [Mass/Vol] 13.1 g/dL Normal 12.0-16.0 [facility] Comment on above: Performed By: #### C BC #### [facility] [address] [place] [address] Dr. Rc Foster IG # 0.02 10e3/ul Normal 0.00-0.03 [facility] Comment on above: Performed By: #### C BC #### [facility] [address] [place] [address] Dr. Rc Foster IG % 0.4 % Normal 0.0-0.5 [facility] Comment on above: Performed By: #### C BC #### [facility] [address] [place] [address] Dr. Rc Foster LYMPH # 2.1 103/ul Normal 1.2-3.8 [facility] Comment on above: Performed By: #### C BC #### [facility] [address] [place] [address] Dr. Rc Foster Lymphocytes/100 WBC (Bld) 37.1 % Normal 20.5-60.0 [facility] Comment on above: Performed By: #### C BC #### [facility] [address] [place] [address] Dr. Rc Foster MANUAL DIFF REQ NO Normal [facility] Comment on above: Performed By: #### C BC #### [facility] [address] [place] [address] Dr. Rc Foster MCH (RBC) [Entitic mass] 28.7 pg Normal 26.7-34.0 [facility] Comment on above: Performed By: #### C BC #### [facility] [address] [address] [address] Rc Foster MCHC (RBC) [Mass/Vol] 32.9 g/dL Normal 29.9-35.2 [facility] Comment on above: Performed By: #### C BC #### [facility] [address] [place] [address] Dr. Rc Foster MCV (RBC) [Entitic vol] 87.1 fL Normal 81.0-99.0 [facility] Comment on above: Performed By: #### C BC #### [facility] [address] [place] [address] Dr. Rc Foster MONO # 0.4 103/ul Normal 0.3-0.8 [facility] Comment on above: Performed By: #### C BC #### [facility] [address] [place] [address] Dr. Rc Foster Monocytes/100 WBC (Bld) 6.7 % Normal 1.7-12.0 [facility] Comment on above: Performed By: #### C BC #### [facility] [address] [place] [address] Dr. Rc Foster NEUT # 2.9 103/ul Normal 1.4-6.5 [facility] Comment on above: Performed By: #### C BC #### [facility] [address] [place] [address] Dr. Rc Foster Neutrophils/100 WBC (Bld) 50.5 % Normal 43.0-75.0 [facility] Comment on above: Performed By: #### C BC #### [facility] [address] [place] [address] Dr. Rc Foster Platelet mean volume (Bld) [Entitic vol] 9.7 fL Normal 9.5-13.5 [facility] Comment on above: Performed By: #### C BC #### [facility] [address] [place] [address] Dr. Rc Foster PLT 189 103/ul Normal 150-450 [facility] Comment on above: Performed By: #### C BC #### [facility] [address] [address] [address] Rc Foster RBC 4.57 106/ul Normal 4.20-5.40 [facility] Comment on above: Performed By: #### C BC #### [facility] [address] [address] [address] Rc Foster WBC 5.7 103/ul Normal 4.0-11.0 [facility] Comment on above: Performed By: #### C BC #### [facility] [address] [address] [address] Rc Foster GLYCOHEMOGLOBIN A1Con 2021 ADA RECOMMENDATION SEE BELOW Normal [facility] Comment on above: Result Comment: ADA RECOMMENDED LIMIT 4.0 - 6.0 ADA THERAPEUTIC TARGET < 7.0 ACTION SUGGESTED > 7.0 Performed By: #### A 1C #### [facility] [address] [address] [address] Rc Foster Glucose [Mass/Vol] 143 mg/dL Normal [facility] Comment on above: Performed By: #### A 1C #### [facility] [address] [address] [address] Rc Foster HbA1c (Bld) [Mass fraction] 6.6 % Critically high 4.5-6.2 [facility] Comment on above: Performed By: #### A 1C #### [facility] [address] [address] [address] Rc Foster LIPID PROFILEon 03-30-2022 CHOL-HDL RATIO NORM SEE BELOW Normal [facility] Comment on above: Result Comment: 3.3 - 4.4 LOW RISK 4.4 - 7.1 AVERAGE RISK 7.1 - 11.0 MODERATE RISK >11.0 HIGH RISK Performed By: #### T SH, CMP, LIPID ####[facility] [address] [address]Dr. Rc Foster Cholesterol [Mass/Vol] 184 mg/dL Normal <=200 [facility] Comment on above: Performed By: #### T SH, CMP, LIPID ####[facility] [address] [id number]. Rc Foster Cholesterol in HDL [Mass/Vol] 42 mg/dL Normal 40-60 [facility] Comment on above: Performed By: #### T SH, CMP, LIPID ####[facility] [address] [id number]. Siribreanna Foster Cholesterol in LDL [Mass/Vol] 87.0 mg/dL Normal [facility] Comment on above: Performed By: #### T SH, CMP, LIPID ####[facility] [address] [id number]. Siribreanna Foster Cholesterol.total/Ch olesterol in HDL [Mass ratio] 4.4 {ratio} Normal [facility] Comment on above: Performed By: #### T MARY JANE, CMP, LIPID ####[facility] [address] [phone]. Siribreanna Foster HDL NORMAL > or = 60 mg/dl - LO W CARDIOVASCULAR RISK <40 mg/dl - HIGH CARDIOVASCULAR RISK Normal [facility] Comment on above: Performed By: #### T MARY JANE, CMP, LIPID ####[facility] [address] [address]Dr. Rc Foster LDL CALC NORMAL SEE BELOW Normal [facility] Comment on above: Result Comment: <100 mg/dl OPTIMAL 100 - 129 mg/dl NEAR OR ABOVE OPTIMAL 130 - 159 mg/dl BORDERLINE HIGH 160 - 189 mg/dl HIGH >190 mg/dl VERY HIGH Performed By: #### T MARY JANE, CMP, LIPID ####[facility] [address] [phone]. Siribreanna Foster Triglyceride [Mass/Vol] 275 mg/dL Critically high <=150 [facility] Comment on above: Performed By: #### T SH, CMP, LIPID ####[facility] [address] [id number]. Rc Foster VLDL CALC 55.0 mg/dL Normal [facility] Comment on above: Performed By: #### T SH, CMP, LIPID ####[facility] [address] [address]Dr. Rc Foster PROF 14(COMP METB)on 022 Albumin [Mass/Vol] 4.0 g/dL Normal 3.4-5.0 [facility] Comment on above: Performed By: #### T SH, CMP, LIPID ####[facility] [address] [address]Dr. Rc Foster Albumin/Globulin [Mass ratio] 1.1 {ratio} Normal [facility] Comment on above: Performed By: #### T SH, CMP, LIPID ####[facility] [address] [address]Dr. Rc Foster ALP [Catalytic activity/Vol] 71 U/L Normal 46-116 [facility] Comment on above: Performed By: #### T SH, CMP, LIPID ####[facility] [address] [place], [place] [address]Dr. Rc Foster ALT [Catalytic activity/Vol] 29 U/L Normal 14-59 [facility] Comment on above: Performed By: #### T SH, CMP, LIPID ####[facility] [address] [place], [place] [address]Dr. Rc Foster Anion gap [Moles/Vol] 13.2 mmol/L Normal [facility] Comment on above: Performed By: #### T SH, CMP, LIPID ####[facility] [address] [place], [place] [address]Dr. Rc Foster AST [Catalytic activity/Vol] 17 U/L Normal 15-37 [facility] Comment on above: Performed By: #### T SH, CMP, LIPID ####[facility] [address] [place], [place] [address]Dr. Rc Foster Bilirubin [Mass/Vol] 0.6 mg/dL Normal 0.2-1.0 [facility] Comment on above: Performed By: #### T SH, CMP, LIPID ####[facility] [address] [place], [place] [address]Dr. Rc Foster Calcium [Mass/Vol] 9.0 mg/dL Normal 8.5-10.1 [facility] Comment on above: Performed By: #### T SH, CMP, LIPID ####[facility] [address] [address]Dr. Rc Foster Chloride [Moles/Vol] 102 mmol/L Normal 98-107 [facility] Comment on above: Performed By: #### T SH, CMP, LIPID ####[facility] [address] [address]Dr. Rc Foster CO2 [Moles/Vol] 27.3 mmol/L Normal 21.0-32.0 [facility] Comment on above: Performed By: #### T SH, CMP, LIPID ####[facility] [address] [address]Dr. Rc Foster Creatinine [Mass/Vol] 1.00 mg/dL Normal 0.55-1.02 [facility] Comment on above: Performed By: #### T SH, CMP, LIPID ####[facility] [address] [place], [place] [address]Dr. Rc Foster EGFR-AF BAHAMIAN >60 Normal >=60 [facility] Comment on above: Performed By: #### T SH, CMP, LIPID ####[facility] [address] [place], [place] [address]Dr. Rc Foster EGFR-NON AF BAHAMIAN 56 mL/min/1.73m2 Critically low >=60 [facility] Comment on above: Performed By: #### T SH, CMP, LIPID ####[facility] [address] [address]Dr. Rc Foster Globulin (S) [Mass/Vol] 3.5 g/dL Normal [facility] Comment on above: Performed By: #### T SH, CMP, LIPID ####[facility] [address] [address]Dr. Rc Foster Glucose [Mass/Vol] 159 mg/dL Critically high 74-106 [facility] Comment on above: Performed By: #### T SH, CMP, LIPID ####[facility] [address] [address]Dr. Rc Foster Potassium [Moles/Vol] 4.5 mmol/L Normal 3.5-5.1 [facility] Comment on above: Performed By: #### T MARY JANE CMP, LIPID ####[facility] [address] [address]Dr. Rc Foster Protein [Mass/Vol] 7.5 g/dL Normal 6.4-8.2 [facility] Comment on above: Performed By: #### T MARY JANE CMP, LIPID ####[facility] [address] [phone]. Rc Foster Sodium [Moles/Vol] 138 mmol/L Normal 136-145 [facility] Comment on above: Performed By: #### T MARY JANE CMP, LIPID ####[facility] [address] [address]Dr. Rc Foster Urea nitrogen [Mass/Vol] 23.0 mg/dL Critically high 7.0-18.0 [facility] Comment on above: Performed By: #### T MARY JANE CMP, LIPID ####[facility] [address] [phone]. Rc Foster Urea nitrogen/Creatinine [Mass ratio] 23.0 mg/mg Normal [facility] Comment on above: Performed By: #### T MARY JANE CMP, LIPID ####[facility] [address] [phone]. Rc Foster TSHon 03-30-2022 TSH 2.807 uIU/mL Normal 0.358-3.740 [facility] Comment on above: Performed By: #### T MARY JANE, CMP, LIPID ####[facility] [address] [phone]. Rc Foster US THYROIDon 03-30-2022 US THYROID [...] by: BERNY QUISPE Date: 2022-03-30 11:03 Normal [facility] MAMM SCREEN 3D LEX CADon 03-19-2022 MG MAMM SCREEN 3D LEX CAD Patient: CARROLL FUENTES Exam Date: 03/19/2022 : 1960 Gender:F Ordering : DR ROBERT VILLASENOR D.O. Admission #: [id number] Family : Order #: [id number] CLICK HERE TO VIEW EXAM RADIOLOGY REPORT [...] No Treatments None Family Cancers None LOCATION: [facility] BREAST COMPOSITION: Scattered areas fibroglandular density. FINDINGS: [...] M.D. on 03/23/2022 at 11:59 Normal [facility] CBC AUTO DIFFon 11-27-2021 BASO # 0.0 103/ul Normal 0.0-0.1 [facility] Comment on above: Performed By: #### C BC #### [facility] [address] [address] [address] Rc Foster Basophils/100 WBC (Bld) 0.7 % Normal 0.2-2.0 [facility] Comment on above: Performed By: #### C BC #### [facility] [address] [address] [address] Rc Foster EO # 0.6 103/ul Normal 0.0-0.7 [facility] Comment on above: Performed By: #### C BC #### [facility] [address] [address] [address] Rc Foster Eosinophils/100 WBC (Bld) 10.3 % Critically high 0.9-7.0 [facility] Comment on above: Performed By: #### C BC #### [facility] [address] [address] [address] Rc Foster Erythrocyte distribution width (RBC) [Ratio] 12.4 % Normal 11.0-15.0 [facility] Comment on above: Performed By: #### C BC #### [facility] [address] [address] [address] Rc Foster Hematocrit (Bld) [Volume fraction] 41.2 % Normal 36.0-48.0 [facility] Comment on above: Performed By: #### C BC #### [facility] [address] [address] [address] Rc Foster Hemoglobin (Bld) [Mass/Vol] 13.4 g/dL Normal 12.0-16.0 [facility] Comment on above: Performed By: #### C BC #### [facility] [address] [address] [address] Rc Foster IG # 0.01 10e3/ul Normal 0.00-0.03 [facility] Comment on above: Performed By: #### C BC #### [facility] [address] [place] [address] Dr. Rc Foster IG % 0.2 % Normal 0.0-0.5 [facility] Comment on above: Performed By: #### C BC #### [facility] [address] [place] [address] Dr. Rc Foster LYMPH # 2.3 103/ul Normal 1.2-3.8 [facility] Comment on above: Performed By: #### C BC #### [facility] [address] [place] [address] Dr. Rc Foster Lymphocytes/100 WBC (Bld) 40.6 % Normal 20.5-60.0 [facility] Comment on above: Performed By: #### C BC #### [facility] [address] [place] [address] Dr. Rc Foster MANUAL DIFF REQ NO Normal [facility] Comment on above: Performed By: #### C BC #### [facility] [address] [place] [address] Dr. Rc Foster MCH (RBC) [Entitic mass] 28.8 pg Normal 26.7-34.0 [facility] Comment on above: Performed By: #### C BC #### [facility] [address] [place] [address] Dr. Rc Foster MCHC (RBC) [Mass/Vol] 32.5 g/dL Normal 29.9-35.2 [facility] Comment on above: Performed By: #### C BC #### [facility] [address] [place] [address] Dr. Rc Foster MCV (RBC) [Entitic vol] 88.6 fL Normal 81.0-99.0 [facility] Comment on above: Performed By: #### C BC #### [facility] [address] [place] [address] Dr. Rc Foster MONO # 0.4 103/ul Normal 0.3-0.8 [facility] Comment on above: Performed By: #### C BC #### [facility] [address] [place] [address] Dr. Rc Foster Monocytes/100 WBC (Bld) 7.6 % Normal 1.7-12.0 [facility] Comment on above: Performed By: #### C BC #### [facility] [address] [address] [address] Rc Foster NEUT # 2.3 103/ul Normal 1.4-6.5 [facility] Comment on above: Performed By: #### C BC #### [facility] [address] [place] [address] Dr. Rc Foster Neutrophils/100 WBC (Bld) 40.6 % Critically low 43.0-75.0 [facility] Comment on above: Performed By: #### C BC #### [facility] [address] [place] [address] Dr. Rc Foster Platelet mean volume (Bld) [Entitic vol] 9.6 fL Normal 9.5-13.5 [facility] Comment on above: Performed By: #### C BC #### [facility] [address] [place] [address] Dr. Rc Foster PLT 194 103/ul Normal 150-450 [facility] Comment on above: Performed By: #### C BC #### [facility] [address] [place] [address] Dr. Rc Foster RBC 4.65 106/ul Normal 4.20-5.40 [facility] Comment on above: Performed By: #### C BC #### [facility] [address] [place] [address] Dr. Rc Foster WBC 5.5 103/ul Normal 4.0-11.0 [facility] Comment on above: Performed By: #### C BC #### [facility] [address] [place] [address] Dr. Rc Foster GLYCOHEMOGLOBIN A1Con 2021 ADA RECOMMENDATION SEE BELOW Normal [facility] Comment on above: Result Comment: ADA RECOMMENDED LIMIT 4.0 - 6.0 ADA THERAPEUTIC TARGET < 7.0 ACTION SUGGESTED > 7.0 Performed By: #### A 1C #### [facility] [address] [address] [address] Rc Foster Glucose [Mass/Vol] 131 mg/dL Normal [facility] Comment on above: Performed By: #### A 1C #### [facility] [address] [address] [address] Rc Foster HbA1c (Bld) [Mass fraction] 6.2 % Normal 4.5-6.2 [facility] Comment on above: Performed By: #### A 1C #### [facility] [address] [address] [address] Rc Foster PROF CHEM 8 (BAS METB)on Anion gap [Moles/Vol] 15.2 mmol/L Normal [facility] Comment on above: Performed By: #### T SH, BMP #### [facility] [address] [place] [address] Dr. Rc Foster Calcium [Mass/Vol] 8.5 mg/dL Normal 8.5-10.1 [facility] Comment on above: Performed By: #### T MARY JANE, BMP #### [facility] [address] [address] [address] Rc Foster Chloride [Moles/Vol] 100 mmol/L Normal 98-107 [facility] Comment on above: Performed By: #### T SH, BMP #### [facility] [address] [address] [address] Rc Foster CO2 [Moles/Vol] 26.6 mmol/L Normal 21.0-32.0 [facility] Comment on above: Performed By: #### T SH, BMP #### [facility] [address] [address] [address] Rc Foster Creatinine [Mass/Vol] 1.15 mg/dL Critically high 0.55-1.02 [facility] Comment on above: Performed By: #### T SH, BMP #### [facility] [address] [address] [address] Rc Foster EGFR-AF BAHAMIAN 58 mL/min/1.73m2 Critically low >=60 [facility] Comment on above: Performed By: #### T SH, BMP #### [facility] [address] [address] [address] Rc Foster EGFR-NON AF BAHAMIAN 48 mL/min/1.73m2 Critically low >=60 [facility] Comment on above: Performed By: #### T SH, BMP #### [facility] [address] [address] [address] Rc Foster Glucose [Mass/Vol] 211 mg/dL Critically high 74-106 [facility] Comment on above: Performed By: #### T SH, BMP #### [facility] [address] [place] [address] Dr. Rc Foster Potassium [Moles/Vol] 4.8 mmol/L Normal 3.5-5.1 [facility] Comment on above: Performed By: #### T SH, BMP #### [facility] [address] [place] [address] Dr. Rc Foster Sodium [Moles/Vol] 137 mmol/L Normal 136-145 [facility] Comment on above: Performed By: #### T SH, BMP #### [facility] [address] [place] [address] Dr. Rc Foster Urea nitrogen [Mass/Vol] 33.0 mg/dL Critically high 7.0-18.0 [facility] Comment on above: Performed By: #### T SH, BMP #### [facility] [address] [place] [address] Dr. Rc Foster Urea nitrogen/Creatinine [Mass ratio] 28.7 mg/mg Normal [facility] Comment on above: Performed By: #### T SH, BMP #### [facility] [address] [place] [address] Dr. Rc Foster TSHon 11-27-2021 TSH 0.744 uIU/mL Normal 0.358-3.740 [facility] Comment on above: Performed By: #### T SH, BMP #### [facility] [address] [place] [address] Dr. Rc Foster SYMPTOMATIC COVID-19 ANTIGEN on 10-28-2021 EUA Statement SEE BELOW Normal [facility] Comment on above: Result [...] revoked sooner. Performed By: #### C VDAGS ####[facility] [address] [address]Dr. Rc Foster SARS-CoV-2 (COVID-19) RNA YARED+probe Ql (Unsp spec) Negative Normal NEGATIVE [facility] Comment on above: Performed By: #### C VDAGS ####[facility] [address] [address]Dr. Rc Foster GLYCOHEMOGLOBIN A1Con 2021 ADA RECOMMENDATION SEE BELOW Normal [facility] Comment on above: Result Comment: ADA RECOMMENDED LIMIT 4.0 - 6.0 ADA THERAPEUTIC TARGET < 7.0 ACTION SUGGESTED > 7.0 Performed By: #### A 1C #### [facility] [address] [place] [address] Dr. Rc Foster Glucose [Mass/Vol] 128 mg/dL Normal [facility] Comment on above: Performed By: #### A 1C #### [facility] [address] [place] [address] Dr. Rc Foster HbA1c (Bld) [Mass fraction] 6.1 % Normal 4.5-6.2 [facility] Comment on above: Performed By: #### A 1C #### [facility] [address] [place] [address] Dr. Rc Foster Discharge CCD Assessmenton 0 09-06-2020 Discharge CCD Assessment [facility] Patient: CARROLL FUENTES [address] [place], [place] [id number] MR#: [id number] DISCHARGE CCD ASSESSMENT : 58 Service Date: 09/06/20 1018 Discharge CCD Assessment Assessment Patient discharged home to continue exercises, pain medication, and wound care Electronically Signed eSign Date and Time Melyssa Florse 09/06/20 1019 Tera Hernandez MD Normal [facility] GLUCOSE METERon 09-06-2020 Glucose [Mass/Vol] 126 mg/dL High 70-99 [facility] Comment on above: Order Comment: CONSE RVATION Result Comment: Fast ing GLUCOSE reference range has been updated per (ADA) [place] [employer]'s recommendation. 07/18/2018 Performed By: #### L 500.17959 ####Test performed at: [place] [address] Glucose [Mass/Vol] 205 mg/dL High 70-99 [facility] Comment on above: Order Comment: CONSE RVATION Result Comment: Fast ing GLUCOSE reference range has been updated per (ADA) [place] [employer]'s recommendation. 07/18/2018 Insulin per sl scale Performed By: #### L 500.50439 #### Test performed at: [place] [address] Internal Med Progress Noteon 09-06-2020 Internal Med Progress Note [facility] Patient: CARROLL FUENTES [address] [place], [place] [id number] MR#: [id number] PROGRESS NOTE - Internal Medicine : 58 Service Date: 09/06/20 0746 Subjective Summary of Stay Ms. Fuentes is a 60 yo F with a PMHx of DM2 well controlled, HTN, migraines, HLD, Hypothyroidism, ADAN, restless legs, Hysterectomy and ovaries removed, partial thyroidetomy , C5-C6 surgeries x 2 (most recent 2019), [...] Flanagan RES, Katarzyna MD 09/06/20 1134 Normal [facility] Orthopedic Progress Noteon 0 09-06-2020 Orthopedic Progress Note [facility] Patient: CARROLL FUENTES [facility] [place] [address] MR#: [id number] PROGRESS NOTE - Orthopedic : 58 Service [...] Anesthesia Note [facility] Patient: CARROLL FUENTES [address] [place], [place] [id number] MR#: [id number] ANESTHESIA NOTE : Service Date: 09/05/20 0812 [...] Signed eSign Date and Time Krystian Akers INTERLOCKER MAINTAINER-LEAK PATCHER 09/05/20 0813 Chu Glez MD Normal [facility] BASIC MET PANELon 09-05-2020 Anion gap [Moles/Vol] 12 mmol/L Normal 6-18 [facility] Comment on above: Performed By: #### L 500.39708, L500.76164 #### Test performed at: [address] [address] Calcium [Mass/Vol] 8.7 mg/dL Normal 8.5-10.1 [facility] Comment on above: Performed By: #### L 500.03598, L500.85552 #### Test performed at: [place] [address] [place] [address] Chloride [Moles/Vol] 101 mmol/L Normal 98-107 [facility] Comment on above: Performed By: #### L 500.11946, L500.51485 #### Test performed at: [address] [address] CO2 [Moles/Vol] 25 mmol/L Normal 21-32 [facility] Comment on above: Performed By: #### L 500.13716, L500.45991 #### Test performed at: [address] [address] Creatinine [Mass/Vol] 1.020 mg/dL Normal 0.550-1.020 [facility] Comment on above: Performed By: #### L 500.73930, L500.08550 #### Test performed at: [address] [address] Glucose [Mass/Vol] 264 mg/dL High 70-99 [facility] Comment on above: Result Comment: Fast ing GLUCOSE reference range has been updated per (ADA) [place] [employer] Association's recommendation. 07/18/2018 Performed By: #### L 500.85789, L500.59829 #### Test performed at: [address] [address] OSM 289 mosm/kg Normal 270-300 [facility] Comment on above: Performed By: #### L 500.72047, L500.43998 #### Test performed at: [address] [address] Potassium [Moles/Vol] 4.5 mmol/L Normal 3.5-5.1 [facility] Comment on above: Performed By: #### L 500.26457, L500.18317 #### Test performed at: [address] [address] Sodium [Moles/Vol] 134 mmol/L Low 136-145 [facility] Comment on above: Performed By: #### L 500.55875, L500.02217 #### Test performed at: [address] [address] Urea nitrogen [Mass/Vol] 17 mg/dL Normal 7-18 [facility] Comment on above: Performed By: #### L 500.66576, L500.76051 #### Test performed at: [address] [address] GFR ESTIMATEon 09-05-2020 IF AMER > 60 Normal > 60 [facility] Comment on above: Result Comment: eGFR (Estimated GFR) Units of measure:mL/min/1.73 meters sq. *CALCULATION REVISED 02/11/2015;IDMS-traceable MDRD equation eGFR is derived from the reexpressed MDRD Study equation using the following parameters: serum creatinine, age, gender and race. An eGFR<60 mL/min/1.73m2 for >3 months is consistent with chronic kidney disease. Refer to KDOQI guidelines for clinical interpretation. Performed By: #### L 500.99502, L500.17615 #### Test performed at: [address] [address] IF non-AFR AMER 55 Low > 60 [facility] Comment on above: Performed By: #### L 500.38616, L500.78560 #### Test performed at: [address] [address] GLUCOSE METERon 09-05-2020 Glucose [Mass/Vol] 177 mg/dL High 70-99 [facility] Comment on above: Order Comment: CONSE RVATION Result Comment: Fast ing GLUCOSE reference range has been updated per (ADA) [place] [employer]'s recommendation. 07/18/2018 Performed By: #### L 500.41184 #### Test performed at: [address] [address] Glucose [Mass/Vol] 310 mg/dL High 70-99 [facility] Comment on above: Result Comment: Fast ing GLUCOSE reference range has been updated per (ADA) [place] Diabetes [employer]'s recommendation. 07/18/2018 Insulin per sl scale Performed By: #### L 500.71823 ####Test performed at: [address] [address] Glucose [Mass/Vol] 281 mg/dL High 70-99 [facility] Comment on above: Result Comment: Fast ing GLUCOSE reference range has been updated per (ADA) [place] Diabetes [employer]'s recommendation. 07/18/2018 Insulin per sl scale Performed By: #### L 500.90460 #### Test performed at: [place] [address] Glucose [Mass/Vol] 105 mg/dL High 70-99 [facility] Comment on above: Result Comment: Fast ing GLUCOSE reference range has been updated per (ADA) [place] [employer]'s recommendation. 07/18/2018 Performed By: #### L 500.47099 #### Test performed at: [place] [address] HGB AND HCTon 09-05-2020 Hematocrit (Bld) [Volume fraction] 37.5 % Normal 36.0-48.0 [facility] Comment on above: Performed By: #### L 200.25934 #### Test performed at: [place] [address] Hemoglobin (Bld) [Mass/Vol] 12.5 g/dL Normal 12.0-15.0 [facility] Comment on above: Performed By: #### L 200.60625 #### Test performed at: [place] [address] Internal Med Progress Noteon 09-05-2020 Internal Med Progress Note [facility] Patient: CARROLL FUENTES [address] [place] [address] MR#: [id number] PROGRESS NOTE - Internal Medicine : 58 [...] Therapy Recommendations [facility] Patient: CARROLL FUENTES [address] [place] [address] MR#: [id number] OT THERAPY RECOMMENDATIONS : 58 Service Date: 09/05/20 151 Therapy Recommendations Therapy Recommendations Recommendations OT evaluation completed. OT recommends HOME with FAmily assist. No further acute OT needs are indicated at this time. Electronically Signed eSign Date and Time Trupti Rojas OT 09/05/20 1512 Normal [facility] Orthopedic Progress Noteon 0 09-05-2020 Orthopedic Progress Note [facility] Patient: CARROLL FUENTES [address] [place], [place] [id number] MR#: [id number] PROGRESS NOTE - Orthopedic : 58 Service [...] Therapy Recommendations [facility] Patient: CARROLL FUENTES [address] [place] [address] MR#: [id number] PT THERAPY RECOMMENDATIONS : 58 Service Date: 09/05/20 0914 Therapy Recommendations Therapy Recommendations Recommendations PT eval complete. No further acute PT needs. Recommend d/c home /c family assist. Electronically Signed eSign Date and Time Tiffanie Bashir PT 09/05/20 0914 Normal [facility] z OT Inpatient Discharge Not juan 09-05-2020 z OT Inpatient Discharge Note [facility] Patient: CARROLL FUENTES [address] [place] [address] MR#: [id number] OT INPATIENT DISCHARGE NOTE : 58 Service [...] Inpatient Evaluation [facility] Patient: CARROLL FUENTES [address] [place] [address] MR#: [id number] OT INPATIENT EVALUATION : 58 Inpatient OT HPI Date of Service 09/05/20 Time In: 1401 Time Out: 1412 Total Treatment Time (Mins) 11 Visit Reason LATERAL RECESS STENOSIS W/ RADICULOPATHY Surgery Type/Date s/p L L4-5 LAmi, foraminotomy, decompression on 09.04.20/ Lumbar spine precautions Referral Date 09/04/20 Tx Diagnosis: LOW BACK PAIN Insurance Name [employer] [facility] Hospital Course Pt is a left hand [...] 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 Objective Precautions Lumbar [...] Discharge Note [facility] Patient: CARROLL FUENTES [facility] [place] [address] MR#: [id number] PT INPATIENT DISCHARGE NOTE : 58 Service [...] Inpatient Evaluation [facility] Patient: CARROLL FUENTES [address] [address] MR#: [id number] PT INPATIENT EVALUATION : 58 Service Date: 09/05/20 0928 Inpatient PT HPI Date of Service 09/05/20 Time In: 0845 Time Out: 0907 Total Treatment Time (Mins) 22 Room Number 624 Visit Reason LATERAL RECESS STENOSIS W/ RADICULOPATHY Surgery Type: L L4-5 lami, foraminotomy, decompression Surgery Date: 09/04/20 Referral Date 09/04/20 Tx Diagnosis: LOW BACK PAIN Insurance Name [facility] Hospital Course 60 y.o female at [facility] for above sx d/t lateral [...] posture. Improved stability noted /c single UE support/APPOINTMENT MANAGER. Pt agreeable to use of her [...] Yes Electronically Signed eSign Date and Time KrystenEda PT 09/05/20 1502 Normal [facility] GLUCOSE METERon 09-04-2020 Glucose [Mass/Vol] 94 mg/dL Normal 70-99 [facility] Comment on above: Result Comment: Fast ing GLUCOSE reference range has been updated per (ADA) [place] Diabetes [employer]'s recommendation. 07/18/2018 Performed By: #### L 500.90968 ####Test performed at: [place] [address] Internal Medicine Consultati onon 09-04-2020 Internal Medicine Consultation [facility] Patient: CARROLL FUENTES [address] [place] [address] MR#: [id number] CONSULTATION - Internal Medicine : 58 Service [...] shoulder replacement, cardiac cath 2015 which was okay Transfusion Status CONSERVATION Transfusion [...] MATHUR on 12/11/18918 Last Action: Reviewed on 09/04/20 105 by [...] Entered as Reported by JORDON MAHTUR on 12/11/18920 Last Action: Reviewed on 09/04/20 [...] Center OPERATIVE REPORTon OPERATIVE REPORT NAME: CARROLL FUENTES MR#: [id number] SURGEON: Tera Hernandez MD DATE OF SURGERY: [...] there were no complications. TERA HERNANDEZ MD [facility] PT NAME: CARROLL FUENTES MR#: [id number] [address] [place] [address] ACCT: [id number] : 58 OPERATIVE REPORT JFS/MODL/[id number] E/S: Tera Hernandez MD 09/18/20 1207 Electronically Signed [facility] PT NAME: CARROLL FUENTES MR#: [id number] [address] [place], [place] [address] ACCT: [id number] : 58 OPERATIVE REPORT Normal [facility] Primary Residenton 1 Primary Resident [facility] Pt Name: CARROLL FUENTES MR#: [id number] [address] [place] [address] ACCT: [id number] [place] [id number] : 58 Service Date: 09/04/20 1603 Primary [...] L4-L5 LAMINECTOMY,FORAMINOTOM Y,DECOMPRESSION. COMPARISON: None. ACCESSION NUMBER(S): [id number] ORDERING CLINICIAN: Tera Hernandez FINDINGS: Intraoperative fluoroscopy of the lumbar spine demonstrates surgical instruments posterior to L5. IMPRESSION: As above Normal [facility] CHEST PA/AP & LATERALon CHEST PA/AP & LATERAL STUDY: CHEST PA/AP LATERAL; 08/25/2020 11:00 am INDICATION: SOB/PAT. COMPARISON: None. ACCESSION NUMBER(S): [id number] ORDERING CLINICIAN: Madelyn Leone FINDINGS: The lungs are clear without pleural effusion. Normal heart size, mediastinum, elzbieta, and pulmonary vasculature. IMPRESSION: No active disease in the chest. Normal [facility] CONSULTATION REPORTon 2020 CONSULTATION REPORT NAME: CARROLL FUENTES MR#: [id number] DIAMOND SAW OPERATOR: Madelyn Leone MD DATE OF CONSULTATION: 08/25/2020 [...] pulse ox is 98% on room air. [facility] PT NAME: CARROLL FUENTES MR#: [id number] [address] [place] [address] ACCT: [id number] : 58 CONSULTATION HEENT: Atraumatic head. 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 IMPRESSION: 1. Preop clearance for L4-L5 disk [...] courtesy of this consultation. MADELYN LEONE MD MS/MODL/[id number] E/S: Madelyn Leone MD 08/26/20 1750 Electronically Signed [facility] PT NAME: CARROLL FUENTES MR#: [id number] [address] [place] [address] ACCT: [id number] : 58 CONSULTATION Normal [facility] LUMB SP COMP W FLEX/EXT 6 VW S>on 08-08-2020 LUMB SP COMP W FLEX/EXT 6 VWS> STUDY: LUMB SP COMP W FLEX/EXT 6 VWS>; 08/08/2020 9:43 am INDICATION: BACK PAIN. COMPARISON: No available comparisons. ACCESSION NUMBER(S): [id number] ORDERING CLINICIAN: Tera Hernandez TECHNIQUE: 6 views [...] on Jul 03 2018 10:17AM EST [id number] [facility] ANES [place] 06-20-2018 ANES POST HNO ID: [id number] Author: Rohit Velarde Service: Anesthesiology Author Type: [...] 20, 2018 TIME: 2:38 PM PAGER/CONTACT #: [facility] ANES PREOPon 06-20-2018 ANES PREOP HNO ID: [id number] Author: Rohit Velarde Service: Anesthesiology Author Type: [...] 10/2016 shoulder replacement - REMOVE TONSILS/ADENOIDS,<11 Y/O 1965 - REVISE MEDIAN N/CARPAL TUNNEL SURG 1989' [...] injection (XYLOCAINE) 0.1-0.2 mL INTRADERMAL PRN Isreal Newman (Pa) lactated ringers infusion 5-30 mL/hr INTRAVENOUS CONTINUOUS Isreal Kim) Trent ceFAZolin iv piggyback 2 g in D5W (iso-osmotic) 100 mL (ANCEF) 2 g INTRAVENOUS Pre-Op Once Isreal Newman (Pa) acetaminophen 1,000 mg tab(s) (TYLENOL) 1,000 mg ORAL ONCE Isreal Newman (Pa) bupivacaine liposome (PF) 1.3 % (13.3 mg/mL) 133 mg injection (EXPAREL) 133 mg INFILTRATION ONCE Rohit Velarde midazolam (PF) 2-4 mg injection (VERSED) 2-4 [...] June 20, 2018 TIME: 9:35 AM CSN: [id number] [facility] BRIEF OP NOTon 06-20-2018 BRIEF OP NOT HNO ID: [id number] Author: Kusum Francisco Service: Orthopaedic Surgery Author Type: Resident Type: Brief Op Note Filed: 06/20/2018 5:49 PM Note Text: BRIEF OP NOTE LOG ID: [id number] Surgery/Procedure Date: 06/20/2018 Incision/Procedure Start Time: 11:18 AM Incision Close/Procedure End Time: 1:17 PM Surgeon(s)/Proceduralis t(s) and Humanities Professor(s): Surgeon(s) and Role: * Jenna Garsia - [...] 20, 2018 TIME: 5:49 PM PAGER/CONTACT #: [facility] CASE MANAGEMon 06-20-2018 CASE MANAGEM HNO ID: [id number] Author: May Herrera (Sw) Service: Care Management Author Type: Shipping Support Clerk Type: Care Mgt Progress Note Filed: 06/20/2018 [...] Phone 07/03/2018 10:00 AM CAROLA BAPTISTE AT [phone] 07/03/2018 10:30 AM GABRIEL CANTU) LATOSHA AT [phone] 07/31/2018 2:15 PM JENNA GARSIA AT [phone] Pt to be discharged home to follow up as above. 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 O.Therapy recommend home. Spouse visiting at bedside and will transport pt home later today.Further discharge needs not anticipated.SW/TCC to follow to assist with plans for discharge. SIGNATURE: DARIO Saini PATIENT NAME: Carroll Fuentes DATE: June 20, 2018 TIME: 5:27 PM PAGER/CONTACT #: [phone] [facility] CONSULTon 06-20-2018 CONSULT HNO ID: [id number] Author: Dulce Green Service: General Internal Medicine [...] Disp: Rfl: 06/19/2018 at 0630 rizatriptan (MAXALT DENTAL TECHNICIAN METAL) 10 mg disintegrating tablet DISSOLVE 1 TABLET [...] the care of your patient. Dulce Green APRN.HEALTH SERVICES MANAGER June 20, 2018 4:34 PM Normal [facility] NURSING PROGon 06-20-2018 Protein mass conc HNO ID: [id number] Author: Fela (Rn) FLETCHER Phillips Service: (none) Author Type: Registered Nurse Type: Nursing Progress Note Filed: 06/20/2018 7:39 PM Note Text: Nursing Progress Note Patient Name: Carroll Fuentes Patient Location: [place]-523/ [place]-* Daily Note: 1545. Care assumed. Pt [...] at bedside. 1720. Dr. M[place]ks and Dulce VETERINARY PATHOLOGIST at bedside, plan is to stay for [...] note was completed by: Fela Phillips RN [facility] Protein mass conc HNO ID: [id number] Author: Wendy (Rn) FLETCHER Underwood Service: Nursing Author Type: Registered Nurse Type: Nursing Progress Note Filed: 06/20/2018 10:20 AM Note Text: Nursing Progress Note Patient Name: Carroll Fuentes Patient Location: SURGERY [facility] Daily Note:Right interscalene nerve block with ultrasound guidance with Dr. Velarde and Dr. Marlow at bedside. Patient tolerated procedure well, VSS, will continue to monitor as we wait for OR team. Resting comfortably with no complaints of pain at this time. This note was completed by: Wendy Underwood RN [facility] OPERATIVE NOon 06-20-2018 OPERATIVE NO HNO ID: [id number] Author: Jenna Garsia Service: Orthopaedic Surgery Author Type: Physician Type: Operative Report Filed: 06/20/2018 1:25 PM Note Text: [place] [address] [place] OPERATIVE REPORT NAME: Carroll Fuentes [facility] #: [id number] DATE: 06/20/2018 (11:18am-1:17pm) AGE: 58 SURGEON 1: Jenna Garsia M.D. IMPORT SPECIALIST: 1. Augie Coates M.D. 2. Kusum Prasad M.D. 3. Mundo Pablo OPERATION: Right total shoulder arthroplasty, biceps tenodesis. ANESTHESIA: General anesthesia with regional interscalene nerve block for postoperative pain control. PREOPERATIVE DIAGNOSIS: Right shoulder primary glenohumeral osteoarthritis. POSTOPERATIVE DIAGNOSIS: Right shoulder primary glenohumeral osteoarthritis, biceps tendinopathy. OPERATIVE INDICATIONS: The patient is a 58 year oldewh-frzo-psg right-hand dominant white female who has a [...] rotator interval stitch was then passed in nkaoxi-di-bogsf fashion with a #2 Ticron suture and tied down to close the lateral rotator interval and set the osteotomy superiorly. The two #2 Fiberwire sutures coming out of the bicipital groove were then sequentially passed in a eptbtm-bw-cssir fashion medial to the horizontal mattress and [...] none COMPLICATIONS: none apparent Jenna Garsia M.D. [facility] PT EDon 06-20-2018 PT ED HNO ID: [id number] Author: Cindy ValenciaRnTyesha Griffin RN Service: (none) [...] By: Cindy Griffin RN In Department: [facility] THERAPY NTon 06-20-2018 THERAPY NT HNO ID: [id number] Author: Abi Phillips Service: Occupational Therapy Author Type: Occupational Therapist Type: Therapy (PT/OT/Speech/Resp) Filed: 06/20/2018 4:59 PM Note Text: Occupational Therapy Evaluation SERVICE DATE: 06/20/2018 SERVICE TIME: 1550 to 1640 ROOM: [facility] FL-523-P Recommended Discharge Disposition: Home Anticipated Discharge [...] daily living (ADL) Interventions Provided: Evaluation;Therapeutic Exercise (23906);Self Alf Management (42237) $ Evaluation-Low (67251) Billed Units: 1 unit Therapeutic Exercise (78852) Treatment Minutes: 10 1 unit Skilled Intervention(s): Education in Self Alf Management (00957) Treatment Minutes: 28 2 units Skilled Intervention(s): [...] Environment Patient Lives With: Spouse Assistance 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 Number Of Stairs To Bed/Bath: 0 [...] DATE: June 20, 2018 TIME: 4:54 PM [facility] XR SHOULDER 2V AP/TRUE AP RT [...] on Jun 20 2018 2:04PM EST [id number] [facility] NURSING PROGon 06-09-2018 Protein mass conc HNO ID: [id number] Author: Ivana (Rn) FLETCHER Heller Service: Nursing [...] 2018 11:10 AM Addendum 06/15/18 EKG IN [facility] FINAL Ivana Heller RN June 15, 2018 4:39 PM Normal [facility] Type and SCR (30D)on 019 ABO/RH(D) Positive Normal [facility] HOSPon 04-28-2018 HOSP Patient:Adalberto Fuentes MRN: Height:5' 2 (1.575 m) Weight:186 lb (84.369 kg) Outpatient Medications as of 06/20/18: calcium phosphate dibas/vit D3 (VITAMIN D, WITH CALCIUM, ORAL) docusate sodium (COLACE) 100 mg capsule aspirin, enteric coated (ECOTRIN LOW STRENGTH) 81 mg EC tablet oxyCODONE-acetaminophen (PERCOCET) 5-325 mg tablet rizatriptan (MAXALT DENTAL TECHNICIAN METAL) 10 mg disintegrating tablet mupirocin (BACTROBAN) 2 [...] 46.0 36.0 Progress Notes (RADIO CT SCAN ON LICENSE OF [facility]): RT Lillian, Tech 06/07/2018 [...] RT Lillian June 07, 2018 9:54 AM [facility] Vital Signs Date Time Vital Sign Value Performing Clinician Facility 07-25-2024 09:00-0400 Diastolic blood pressure 79 mm[Hg] [facility] 07-25-2024 09:00-0400 Heart rate 66 /min [facility] 07-25-2024 09:00-0400 Respiratory rate 12 /min [facility] 07-25-2024 09:00-0400 Systolic blood pressure 161 mm[Hg] [facility] 07-18-2024 10:47-0400 Body height 154.94 cm [facility] 07-18-2024 10:47-0400 Body mass index (BMI) [Ratio] 32.8 kg/m2 [facility] 07-18-2024 10:47-0400 Body weight 78.95 kg [facility] 07-18-2024 10:47-0400 Diastolic blood pressure 74 mm[Hg] [facility] 07-18-2024 10:47-0400 Heart rate 68 /min [facility] 07-18-2024 10:47-0400 Respiratory rate 12 /min [facility] 07-18-2024 10:47-0400 Systolic blood pressure 134 mm[Hg] [facility] 07-13-2024 10:11-0400 Body height 154.94 cm [facility] 07-13-2024 10:11-0400 Body mass index (BMI) [Ratio] 32.9 kg/m2 [facility] 07-13-2024 10:11-0400 Body weight 79.01 kg [facility] 07-13-2024 10:11-0400 Diastolic blood pressure 77 mm[Hg] [facility] 07-13-2024 10:11-0400 Heart rate 65 /min [facility] 07-13-2024 10:11-0400 Respiratory rate 12 /min [facility] 07-13-2024 10:11-0400 Systolic blood pressure 117 mm[Hg] [facility] 07-11-2024 08:30-0400 Body temperature 98.6 [degF] Jose Sharif MD Work Phone: [facility] 07-11-2024 08:30-0400 Diastolic blood pressure 62 mm[Hg] Jose Sharif MD Work Phone: [facility] 07-11-2024 08:30-0400 Heart rate 88 /min Jose Sharif MD Work Phone: [facility] 07-11-2024 08:30-0400 Respiratory rate 16 /min Jose Sharif MD Work Phone: [facility] 07-11-2024 08:30-0400 SaO2% (BldA) [Mass fraction] 98 % Jose Sharif MD Work Phone: [facility] 07-11-2024 08:30-0400 Systolic blood pressure 117 mm[Hg] Jose Sharif MD Work Phone: [facility] 07-06-2024 20:16-0400 Body height 154.9 cm Jose Sharif MD Work Phone: [facility] 07-06-2024 20:16-0400 Body mass index (BMI) [Ratio] 33.07 kg/m2 Jose Sharif [facility] 07-06-2024 20:16-0400 Body weight 79.38 kg Jose Sharif MD [facility] 07-04-2024 15:04-0400 Body height 154.94 cm [facility] 07-04-2024 15:04-0400 Body mass index (BMI) [Ratio] 32.9 kg/m2 [facility] 07-04-2024 15:04-0400 Body weight 79.06 kg [facility] 07-04-2024 15:04-0400 Diastolic blood pressure 79 mm[Hg] [facility] 07-04-2024 15:04-0400 Heart rate 69 /min [facility] 07-04-2024 15:04-0400 Respiratory rate 12 /min [facility] 07-04-2024 15:04-0400 Systolic blood pressure 177 mm[Hg] [facility] 06-25-2024 10:11-0500 Body temperature 97.3 [degF] [facility] 06-25-2024 10:11-0500 Diastolic blood pressure 76 mm[Hg] [facility] 06-25-2024 10:11-0500 Heart rate 54 /min [facility] 06-25-2024 10:11-0500 Respiratory rate 16 /min [facility] 06-25-2024 10:11-0500 SaO2% (BldA) [Mass fraction] 98 % [facility] 06-25-2024 10:11-0500 Systolic blood pressure 119 mm[Hg] [facility] 06-25-2024 10:07-0500 Body height 154.94 cm [facility] 06-25-2024 10:07-0500 Body mass index (BMI) [Ratio] 32.9 kg/m2 [facility] 06-25-2024 10:07-0500 Body weight 79.15 kg [facility] 02-24-2024 14:13-0400 Body height 154.94 cm [facility] 02-24-2024 14:13-0400 Body mass index (BMI) [Ratio] 33.1 kg/m2 [facility] 02-24-2024 14:13-0400 Body temperature 96 [degF] [facility] 02-24-2024 14:13-0400 Body weight 79.6 kg [facility] 02-24-2024 14:13-0400 Diastolic blood pressure 84 mm[Hg] [facility] 02-24-2024 14:13-0400 Heart rate 66 /min [facility] 02-24-2024 14:13-0400 Systolic blood pressure 159 mm[Hg] [facility] 12-20-2023 15:35-0400 Body height 154.94 cm [facility] 12-20-2023 15:35-0400 Body mass index (BMI) [Ratio] 33.8 kg/m2 [facility] 12-20-2023 15:35-0400 Body weight 81.19 kg [facility] 12-20-2023 15:35-0400 Diastolic blood pressure 80 mm[Hg] [facility] 12-20-2023 15:35-0400 Heart rate 78 /min [facility] 12-20-2023 15:35-0400 Respiratory rate 12 /min [facility] 12-20-2023 15:35-0400 Systolic blood pressure 134 mm[Hg] [facility] 04-29-2023 09:00-0500 Body height 154.94 cm Robert Ball Other [facility] [employer] Other 04-29-2023 09:00-0500 Body mass index (BMI) [Ratio] 33.14 kg/m2 Robert Ball Other [employer] Other 04-29-2023 09:00-0500 Body weight 79.56 kg Robert Ball Other [employer] Other 04-29-2023 09:00-0500 Diastolic blood pressure 89 mm[Hg] Robert Ball Other [employer] Other 04-29-2023 09:00-0500 Respiratory rate 12 /min Robert Ball Other [employer] Other 04-29-2023 09:00-0500 Systolic blood pressure 155 mm[Hg] Robert Ball Other [employer] Other 12-20-2022 13:45-0400 Body height 154.94 cm Robert Ball Other [employer] Other 12-20-2022 13:45-0400 Body mass index (BMI) [Ratio] 34.12 kg/m2 Robert Ball Other [employer] Other 12-20-2022 13:45-0400 Body weight 81.92 kg Robert Ball Other [employer] Other 12-20-2022 13:45-0400 Diastolic blood pressure 96 mm[Hg] Robert Ball Other [employer] Other 12-20-2022 13:45-0400 Respiratory rate 12 /min Robert Ball Other [employer] Other 12-20-2022 13:45-0400 Systolic blood pressure 179 mm[Hg] Robert Ball Other [employer] Other 08-04-2022 09:45-0400 Body height 154.94 cm Robert Ball Other [employer] Other 08-04-2022 09:45-0400 Body mass index (BMI) [Ratio] 33.33 kg/m2 Robert Ball Other [employer] Other 08-04-2022 09:45-0400 Body weight 80.02 kg Robert Ball Other [employer] Other 08-04-2022 09:45-0400 Diastolic blood pressure 77 mm[Hg] Robert Ball Other [employer] Other 08-04-2022 09:45-0400 Respiratory rate 12 /min Robert Ball Other [employer] Other 08-04-2022 09:45-0400 Systolic blood pressure 128 mm[Hg] Robert Ball Other [employer] Other Encounters Encounter Date Encounter Type Care Provider Facility Start: 07-25-2024 End: 07-25-2024 ambulatory [facility] Work Phone: Start: 07-25-2024 End: 07-25-2024 Patient encounter procedure [facility] Work Phone: Start: 07-18-2024 End: 07-18-2024 ambulatory [facility] Work Phone: Start: 07-18-2024 End: 07-18-2024 Patient encounter procedure [facility] Work Phone: Start: 07-18-2024 Non-patient / Non-visit [facility] Work Phone: Start: 07-13-2024 End: 07-13-2024 ambulatory [facility] Work Phone: Start: 07-13-2024 End: 07-13-2024 Patient encounter procedure [facility] Work Phone: Start: 07-12-2024 Non-patient / Non-visit [facility] Work Phone: Start: 07-11-2024 Non-patient / Non-visit [facility] Work Phone: Start: 07-06-2024 End: 07-11-2024 Evaluation and management of inpatient Jose Sharif MD Work Phone: [facility] Start: 07-04-2024 End: 07-04-2024 ambulatory [facility] Work Phone: Start: 07-04-2024 End: 07-04-2024 Encounter for other preprocedural examination [facility] Start: 07-04-2024 End: 07-04-2024 Patient encounter procedure [facility] Work Phone: Start: 06-27-2024 Non-patient / Non-visit [facility] Work Phone: Start: 06-25-2024 End: 06-25-2024 ambulatory [facility] Work Phone: Start: 06-25-2024 End: 06-25-2024 Patient encounter procedure [facility] Work Phone: Start: 06-21-2024 ambulatory [facility] Start: 06-01-2024 Non-patient / Non-visit [facility] Work Phone: Start: 05-31-2024 Non-patient / Non-visit [facility] Work Phone: Start: 04-09-2024 End: 04-09-2024 ambulatory Miriam Barron MD Facility: [facility] Start: 02-24-2024 End: 02-24-2024 ambulatory [facility] Work Phone: Start: 02-24-2024 End: 02-24-2024 Patient encounter procedure [facility] Work Phone: Start: 02-22-2024 Non-patient / Non-visit [facility] Work Phone: Start: 12-27-2023 Non-patient / Non-visit [facility] Work Phone: Start: 12-20-2023 Patient encounter status [facility] Start: 12-20-2023 End: 12-20-2023 ambulatory [facility] Work Phone: Start: 12-20-2023 End: 12-20-2023 Patient encounter procedure [facility] Work Phone: Start: 09-26-2023 End: 09-26-2023 ambulatory Miriam Barron MD Facility:[facility] Start: 08-15-2023 End: 08-15-2023 ambulatory Miriam Barron MD Facility:[facility] Start: 08-08-2023 End: 08-08-2023 ambulatory Miriam Barron MD Facility:[facility] Start: 06-27-2023 End: 06-27-2023 ambulatory Miriam Barron MD Facility:[facility] Start: 06-06-2023 End: 06-06-2023 ambulatory Miriam Barron MD Facility:[facility] Start: 06-01-2023 End: 06-01-2023 ambulatory Robert Villasenor Other [employer] Other Start: 06-01-2023 Telephone encounter Robert Villasenor [facility] Start: 05-23-2023 End: 05-23-2023 ambulatory Miriam Barron MD Facility:[facility] Start: 05-13-2023 End: 05-13-2023 ambulatory Robert Villasenor Other [employer] Other Start: 05-13-2023 Telephone encounter Robert Villasenor [facility] Start: 05-09-2023 End: 05-09-2023 ambulatory Robert Ball Other [employer] Other Start: 05-09-2023 Telephone encounter Robert Ball [facility] Start: 05-04-2023 End: 05-04-2023 ambulatory Robert Ball Other [employer] Other Start: 05-04-2023 Telephone encounter Robert Ball [facility] Start: 05-02-2023 End: 05-02-2023 ambulatory Robert Ball Other [employer] Other Start: 05-02-2023 Telephone encounter Robert Ball [facility] Start: 04-29-2023 End: 04-29-2023 ambulatory Robert Ball Other [employer] Other Start: 04-29-2023 Office outpatient vi sit 15 minutes Robert Ball [facility] Start: 04-04-2023 End: 04-04-2023 ambulatory Robert Ball Other [employer] Other Start: 04-04-2023 Telephone encounter Robert Ball [facility] Start: 01-24-2023 End: 01-24-2023 ambulatory Robert Villasenor Other [employer] Other Start: 01-24-2023 Telephone encounter Robert Villasenor [facility] Start: 12-23-2022 End: 12-23-2022 ambulatory Robert Villasenor Other [employer] Other Start: 12-23-2022 Telephone encounter Robert Villasenor [facility] Start: 12-20-2022 End: 12-20-2022 ambulatory Robert Villasenor Other [employer] Other Start: 12-20-2022 Office outpatient vi sit 15 minutes Robert Hamilton [facility] Start: 12-17-2022 End: 12-17-2022 ambulatory Robert Villasenor Other [employer] Other Start: 12-17-2022 Telephone encounter Robert Ball [facility] Start: 11-08-2022 End: 11-08-2022 ambulatory Robert Villasenor Other [employer] Other Start: 11-08-2022 Telephone encounter Robert Ball [facility] Start: 10-22-2022 End: 10-22-2022 ambulatory Robert Villasenor Other [employer] Other Start: 10-22-2022 Telephone encounter Robert Ball [facility] Start: 10-13-2022 End: 10-13-2022 ambulatory Robert Villasenor Other [employer] Other Start: 10-13-2022 Telephone encounter Robert Ball [facility] Start: 09-27-2022 End: 09-27-2022 ambulatory Robert Villasenor Other [employer] Other Start: 09-27-2022 Telephone encounter Robert Ball [facility] Start: 08-23-2022 End: 08-24-[address] RISHI PARKER Facility: Start: 08-04-2022 End: 08-04-2022 ambulatory Robert Villasenor Other [facility] [employer] Other Start: 08-04-2022 Office outpatient vi sit 25 minutes Robert [facility] Start: 04-03-2022 Encounter for genera l adult medical examination without abnormal findings DR ROBERT VILLASENOR [facility] Start: 03-30-2022 End: 03-31-[address] ROBERT VILLASENOR Facility:[facility] Start: 03-30-2022 End: 03-31-2022 Encounter for general adult medical examination without abnormal findings DR ROBERT VILLASENOR Facility:[facility] Start: 03-19-2022 End: 03-20-[address] ROEBRT VILLASENOR Facility:[facility] Start: 02-18-2022 End: 02-19-[address] YAIR WELLS . Facility:[facility] Start: 11-27-2021 End: 11-28-[address] ROBERT VILLASENOR Facility:[facility] Start: 10-28-2021 End: 10-28-[address] ROBERT VILLASENOR Facility:[facility] Start: 09-10-2021 End: 09-11-[address] ROBERT VILLASENOR Facility:[facility] Start: 07-03-2018 End: 07-03-2018 Patient encounter procedure [facility] Start: 06-20-2018 End: 06-20-2018 Evaluation and [...] Dank Diglio PA Work Phone: Start: 07-07-2024 Anion gap [Moles/Vol] O chelsea Sharif MD Work Phone: Start: 07-07-2024 End: 07-07-2024 Basic metabolic panel calcium total Jose Sharif MD Work Phone: Start: 07-07-2024 GLOMERULAR FILTRATIO N RATE, ESTIMATED Jose Sharif MD Work Phone: Start: 07-07-2024 Gluc bld gluc mntr d ev cleared fda spec home use Dank Diglio PA Work Phone: Start: 07-07-2024 Radiologic exam [...] 60 yrs+ (1 - 1-dose 75+ series) [employer] Start: 07-11-2025 GFR test (Diabetes, CKD 3-4, OR last GFR 15-59) GFR test (Diabetes, CKD 3-4, OR last GFR 15-59) [employer] Start: 04-25-2024 Annual Wellness Visi t (Medicare Advantage) Annual Wellness Visit (Medicare Advantage) [employer] Start: 12-25-2023 COVID-19 Vaccine ( season) COVID-19 Vaccine ( season) [employer] Start: 2014 Screening for osteoporosis DEXA (modify frequency per FRAX score) [employer] Start: 2009 Pneumococcal 50+ yea rs Vaccine (1 of 1 - PCV) Pneumococcal 50+ years Vaccine (1 of 1 - PCV) [employer] Start: 2009 Shingles vaccine (1 of 2) Shingles vaccine (1 of 2) [employer] Start: 2004 Screening for malign ant neoplasm of colon [employer] Start: 1999 Screening for malign ant neoplasm of breast Breast cancer screen [employer] Start: 1994 Diabetes screen Diabetes screen [employer] Start: 1989 Screening for malign ant neoplasm of cervix [employer] Start: 1980 Screening for malign ant neoplasm of cervix Pap smear [employer] Start: 1978 DTaP/Tdap/Td vaccine (1 - Tdap) DTaP/Tdap/Td vaccine (1 - Tdap) [facility] Start: 1977 Hepatitis C screening Hepatitis [facility] sc reen [facility] Start: 1974 HIV screening HIV screen [facility] [employer] Start: 1971 Depression Screen Depression Screen [facility] Start: 1969 Lipid panel Lipids [place] [facility] [employer] End: 07-15-2024 Basic metabolic 2000 panel - Serum or Plasma Basic Metabolic Panel Lab Routine Daily for 1 Weeks starting 07/09/2024 until 07/15/2024, 3 completed [employer] Comment on above: Daily for [address] arting 07/09/2024 until 07/15/2024, 3 completed Comprehensive metabo lic 2000 panel - Serum or Plasma [facility] Glucose [Mass/volume ] in Serum or Plasma POCT Glucose Point of Care Testing STAT As Needed until discontinued starting 07/06/2024 [employer] Comment on above: As Needed until disc ontinued starting 07/06/2024 Glucose [Mass/volume ] in Serum or Plasma POCT glucose Point of Care Testing Routine 4X Daily (AC & HS) until discontinued starting 07/07/2024, 18 completed [employer] Comment on above: 4X Daily (AC & HS) u ntil discontinued starting 07/07/2024, 18 completed Glucose [Mass/volume ] in Serum or Plasma POCT Glucose Point of Care Testing STAT As Needed until discontinued starting 07/10/2024 [employer] Comment on above: As Needed until disc ontinued starting 07/10/2024 End: 07-15-2024 Hemoglobin and Hematocrit Hemoglobin and Hematocrit Lab Routine Daily for 1 Weeks starting 07/09/2024 until 07/15/2024, 3 completed [employer] Comment on above: Daily for [address] arting 07/09/2024 until 07/15/2024, 3 completed MG Breast - bilatera l [facility] Oxygen therapy [place] [facility] [place] Initiate Oxygen Therapy Protocol Respiratory Care Routine As Needed until discontinued starting 07/08/2024 [employer] Comment on above: As Needed until disc ontinued starting 07/08/2024 Spirometry panel Incentive jesse metry Respiratory Care Routine Every 2hr while awake until discontinued starting 07/06/2024 [employer] Work Phone: Comment on above: Every 2hr while awak e until discontinued starting 07/06/2024 Spirometry panel Incentive jesse metry Respiratory Care Routine Every 2hr while awake until discontinued starting 07/08/2024 [employer] Comment on above: Every 2hr while awak e until discontinued starting 07/08/2024 [facility] Payers Date Payer Category Payer Unknown [id number] 2023 Unknown [id number] 2019 Unknown [id number] 2015 Unknown [id number] 1960 Self-pay [id number] 1959 Unknown [id number] 93 1959 Unknown [id number] 2.16.840.1.614944.3.579.2.5 93 1959 Unknown [id number] 2.16.840.1.326319.3.579.2.5 93 1959 Unknown [id number] 2.16.840.1.484400.3.579.2.5 93 1959 Unknown [id number] 2.16.840.1.608657.3.579.2.5 93 1959 Unknown [id number] 2.16.840.1.289590.3.579.2.5 93 1959 Unknown [id number] 2.16.840.1.292338.3.579.2.1 96 1959 Unknown [id number] 2.16.840.1.896831.3.579.2.1 96 1959 Unknown [id number] 2.16.840.1.973644.3.579.2.1 96 1959 Unknown [id number] 2.16.840.1.283437.3.579.2.1 96 1959 Unknown [id number] 2.16.840.1.045661.3.579.2.1 96 1959 Unknown [id number] 2.16.840.1.256887.3.579.2.1 96 1959 Unknown [id number] 2.16.840.1.199490.3.579.2.1 96 1959 Unknown [id number] 2.16.840.1.093260.3.579.2.7 27 1959 Unknown [id number] 2.16.840.1.183790.3.579.2.9 3 Medicare Medicare [id number] Unknown [id number] 2.16.840.1.373178.3.579.2.5 93 Unknown O [id number] Unknown [facility] PF [id number] Social History Date Type Detail Facility Start: 07-06-2024 Sex Assigned At [employer] Other Start: 1960 Sex Assigned At Female [facility] Tobacco smoking stat us UTIS Unknown if ever smoked [facility] Work Phone: Start: 06-25-2024 End: 07-25-2024 Sex Female (finding) [facility] Start: 07-06-2024 Tobacco smoking status NHIS Never smoked tobacco [employer] Start: 07-06-2024 Tobacco use and exposure Smokeless tobacco non-user [employer] Start: 07-09-2024 Alcoholic beverage intake Lifetime non-drinker (finding) [employer] Start: 07-06-2024 History of Social function Keith Avison Younglevy Kamego Has the [employer], [employer], or water [employer] threatened to shut off services in your home in past 12Mo No [employer] (I/We) worried whekrystal er (my/our) food would run out before (I/we) got money to buy more. Never true [employer] In the past 12 month s, has lack of transportation kept you from medical appointments or from getting medications? No [employer] Start: 1960 Sex assigned at Not on file [employer] Medical Equipment Procedure Code Equipment Code Equipment Original Text Equipment Identifier Dates Screw Spnl L45mm Dia6.5mm Post Thoracolumbosacral Co Chrom - [id number] Start: 07-08-2024 Screw Spnl L40mm Dia6.5mm Post Thoracolumbosacral Co Chrom - [id number] Start: 07-08-2024 Set Scr Spnl L6m m Dia5.5mm Ti Brk Off Svetlana W/ Detach Cdh - [id number] Start: 07-08-2024 Evan Spnl L35mm D ia5.5mm Ant Post Thoracolumbosacral Ti - [id number] Start: 07-08-2024 Clinical Notes 08-04-2022 to [...] F/up orthop as OP. Jose Sharif MD, Department of Orthopedic Surgery Spine Service [...] PT/OT SCD amlabs Jose Sharif MD, MD [facility] INPATIENT PHYSICAL THERAPY EVALUATION [facility] 7K - 7K-21/021-A Discharge Recommendations: Continue [...] or urinary incontinence. 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 Prison Goals Time Frame for Documentation Coordinator Goals : NA due to short ELOS Following session, patient left in safe position with all fall risk precautions in place. Pt in bed following session, all needs and call light in reach, alarm on. [facility] 7K Occupational Therapy Daily Note Discharge Recommendations: Home with Home Health OT Equipment Recommendations: No Monitor need for LHAE. Time In: 0800 Time Out: 827 Timed Code Treatment Minutes: 28 Minutes Minutes: 28 Date: 07/10/2024 Patient Name: Carroll Fuentes, Gender: female Room: [address] [place] [address] : 1960 (64 y.o.) Referring Practitioner: Dank [...] or urinary incontinence. She was evaluated at [facility], she had an MRI of the [...] injury in the past year?: Yes Active Plastic Dolls Mold Filler: Yes Occupation: Retired SUBJECTIVE: Patient seated in bedside chair upon arrival; agreeable to therapy this date. Patient pleasant and cooperative throughout session. PAIN: 10/02: Vitals: Vitals not assessed per clinical judgement, see nursing flowsheet COGNITION: WFL ADL: Grooming: Modified Independent. Hair care seated in bedside chair Upper Extremity Dressing: Minimal Assistance. Carroll/doff house robe Lower Extremity Dressing: Minimal Assistance. With property and equipment clerk in order to carroll/doff hospital shorts with verbal/visual cues to complete, demonstrating good understanding. Footwear Management: Supervision, X 1, with verbal cues , and with increased time for completion. Utilized property and equipment clerk/sock aid in order to doff/carroll B socks [...] demonstrate appropriately throughout session. Functional Outcome Measures: AM-PAC Inpatient Daily Activity Raw Score: 19 ASSESSMENT: [...] indep within home environment. Additional Goals?: No Prison Goals Time Frame for Documentation Coordinator Goals : No LTGs d/t short estimated [...] in am PT/OT Jose Sharif MD, MD [facility] PHYSICAL THERAPY MISSED TREATMENT NOTE [facility] 7K Date: 07/09/2024 Patient Name: Carroll Fuentes : 1960 (64 y.o.) Gender: female REASON FOR MISSED TREATMENT: Missed Treat. Attempted x3 today. 1st attempt, pt with tech on BSC and then requesting to eat breakfast. 2nd attempt, OT with pt. 3rd attempt, director case in room to complete assessment. [facility] INPATIENT OCCUPATIONAL THERAPY [facility] 7K EVALUATION Discharge Recommendations: Continue to assess pending progress, Home with Home health OT Equipment Recommendations: No Monitor need for LHAE. Time In: 0935 Time Out: 1016 Timed Code Treatment Minutes: [...] or urinary incontinence. She was evaluated at [facility], she had an MRI of the [...] injury in the past year?: Yes Active Plastic Dolls Mold Filler: Yes Occupation: Retired VISION:Corrected HEARING: WFL COGNITION: [...] Inpatient Daily Activity Raw Score: 17 Modified Francoise: Premorbid Functional Status: Not Applicable [...] indep within home environment. Additional Goals?: No Prison Goals Time Frame for Prison Goals : No LTGs d/t short estimated length of stay. AM-PAC Inpatient Daily Activity Raw Score: 17 AM-PAC Inpatient ADL T-Scale Score : 37.26 Following session, patient left in safe position with all fall risk precautions in place. Order for back brace and face sheet faxed to [facility]. Department of Orthopedic Surgery [...] pain 6/10 at this time, medicated by LEAK PATCHER 1840 pt resting, resp easy. VSS 1850 pt awakens to voice, states pain 5/10 and tolerable. VSS 1900 c/o pain 7/10, medicated with 50 mcg fentanyl 1904 no change in pain status, medicated with 50 mcg fentanyl 1910 pt resting, resp easy. VSS 1915 pt resting, resp easy. VSS 1925 pt meets criteria for discharge from pacu at this time. Pt transported to [facility] in stable condition Patient to OR [...] MD Spiritual Health History and Assessment/Progress Note [facility] (P) Initial Encounter, , , Name: Carroll Fuentes Age: 64 y.o. Sex: female Language: Albanian Presybeterian: Sabianism Intractable back pain Date: 07/07/2024 Total Time Calculated: (P) 14 min Spiritual Assessment began in [facility] 7K Referral/Consult From: (P) Nurse Encounter [...] and how she loves everything about the latter-day. Patient finds peace and hope in her liliane as a synagogue and desires to have sacrament of the sick by a under ground miner, before her surgery tomorrow afternoon. I told the patient that I will let the spiritual care team know. Offered patient words of encouragement, quoted Scripture, and prayed with the patient, at her request. Patient expressed gratitude. Made patient aware of tape weaver availability and support. Patient Interventions include: Facilitated expression of thoughts and feelings, Explored spiritual coping/struggle/distress, Affirmed coping skills/support systems, and Provided sacramental/baptism ritual Family/Friends Interventions include: No family/friends present Patient Plan of Care: Contact Liliane community health director for support or sacramental needs Family/Friends [...] All vegetables, especially asparagus, pruitt sprouts, broccoli, [place] sprouts, cabbage, carrots, cauliflower, celery, corn, greens, [...] taking more than one drug. This includes [id number] medication and herb or dietary supplements. Plan [...] loss of vertebral body height is seen. [facility] 07-08-2024 Note PROCEDURE: XR LUMBAR SPINE [...] by: Sivakumar Betts MD 07/08/24 Final result [facility] 06-25-2024 Evaluation note Diagnosis Onset Date Resolution Cervical spondylosis acute Gerald h 2024 10:04am Hypertension acute June 25, 025 10:04am Hx of fusion of cervical spine resolved June 25, 2024 10:04am Cervical pain deleted June 25, 2024 10:04am Hypercholesterolemia acute Gerald 2024 2:57pm Hypertension acute July 04, 2024 2:57pm Hypothyroid acute July 04 025 2:57pm STEPHANIE (obstructive sleep apnea) acute July 04, 2024 2:57pm Type 2 diabetes mellitus with hyperglycemia acute July 04 025 2:57pm Preop exam for internal medicine noneactive July 04, 2024 2:57pm [facility] Work Phone: 1(132) 916-442903-03-2025 Evaluation note* Diagnosis Onset Date Resolution Status [...] h hyperglycemia acute July 04, 2024 2:57pm [facility] Work Phone: 1(858) 162-559103-03-2025 Evaluation note* Diagnosis Onset Date Resolution Status Admit Date Cervical spondylosis acute Gerald 2024 10:04am Hypertension acute June 25, 025 [...] 2024 2:57pm Acute blood loss anemia acute [facility] 2024 9:25am Central stenosis of spinal canal acu te July 13, 2024 9:25am Herniated intervertebral dis c of lumbar spine acute July 13, 2024 9:25am Hypotension due to hypovolemia acute July 13, 2024 9:25am Type 2 diabetes mellitus wit h hyperglycemia acute July 13, 2024 9:25am Acute blood loss anemia acute [facility] 2024 10:08am Adverse effect of mixed sedatives acute July 18, 2024 10:08am Central stenosis of spinal canal acu te July 18, 2024 10:08am Herniated intervertebral dis c of lumbar spine acute July 18, 2024 10:08am Hypotension due to hypovolemia acute July 18, 2024 10:08am Type 2 diabetes mellitus wit h hyperglycemia acute July 18, 2024 10:08am Visual hallucinations acute [facility] 2024 10:08am [facility] Work Phone: 1(257) 721-217703-03-2025 Evaluation note* Diagnosis Onset Date Resolution Status Admit Date Cervical spondylosis acute Gerald 2024 10:04am Hypertension [...] 2024 9:25am Acute blood loss anemia acute [facility] 2024 10:08am Central stenosis of spinal canal acu te July 18, 2024 10:08am Herniated intervertebral dis c of lumbar spine acute July 18, 2024 10:08am Hypotension due to hypovolemia acute July 18, 2024 10:08am Type 2 diabetes mellitus wit h hyperglycemia acute July 18, 2024 10:08am Visual hallucinations acute [facility] 2024 10:08am [facility] Work Phone: 1(152) 426-192602-07-2024 Evaluation note* Encounter Date Diagnosis Assessment Notes Treatment Notes Treatment Clinical Notes May, Autoimmune thyroiditis (ICD-10 - E06.3) May, Elevated cholesterol (ICD-10 - E78.00) May, Type 2 diabetes mellitus with hyperglycemia, without long-term current use of insulin (ICD-10 - E11.65) May, Primary hypertension (ICD-10 - I10) May, Intractable chronic migraine without aura and without status migrainosus (ICD-10 - G43.719) [employer] Other 01-15-2024 Evaluation note* Encounter Date Diagnosis Assessment Notes Treatment Notes Treatment Clinical Notes Apr, Intractable chronic migraine without aura and without status migrainosus (ICD-10 - G43.719) [employer] Other 01-08-2024 Evaluation note* Encounter Date Diagnosis Assessment Notes Treatment Notes Treatment Clinical Notes Apr, Intractable chronic migraine without aura and without status migrainosus (ICD-10 - G43.719) [employer] Other 01-05-2024 Evaluation note* Encounter Date Diagnosis [...] Begin Amitriptyline Stop Tizanidine. MRI cervical spine [employer] Other 08-31-2023 Evaluation note* Encounter Date Diagnosis Assessment Notes Treatment Notes Treatment Clinical Notes Nov, Primary hypertension (ICD-10 - I10) [employer] Other 08-28-2023 Evaluation note* Encounter Date Diagnosis Assessment Notes Treatment Notes Treatment Clinical Notes Nov, Adverse effect of smooth muscle relaxant, subsequent encounter (ICD-10 - T44.3X5D) Avoid combination of Klonopin and Zanaflex when scheduled cardiothoracic surgeon. May want to cut back on Zanaflex. [...] Pain in left shoulder (ICD-10 - M25.512) [employer] Other 06-30-2023 Evaluation note* Encounter Date Diagnosis Assessment Notes Treatment Notes Treatment Clinical Notes Sep, Type 2 diabetes mellitus with hyperglycemia, without long-term current use of insulin (ICD-10 - E11.65) [employer] Other 06-05-2023 Evaluation note* Encounter Date Diagnosis Assessment Notes Treatment Notes Treatment Clinical Notes Sep, Candidiasis, intertriginous (ICD-10 - B37.2) [employer] Other 04-12-2023 Evaluation note* Encounter Date Diagnosis [...] use, the patient reduces the risk for GA, CVA, HTN, cardiac dysrhythmias and sudden cardiac [...] Jul, Other specified hypothyroidism (ICD-10 - E03.8) [employer] Other Evaluation noteNo InformationNort [employer] Other Evaluation noteNo assessment information available [facility] Work Phone: Evaluation note* Diagnosis Onset Date Resolution Status Cervical pain acute Cervical spondylosis acute Cervical pain acute Cervical spondylosis acute Painful lumpy right breast a cute [facility] Work Phone: Evaluation note* Diagnosis Intractable back pain- Primary Backache, unspecified Spinal stenosis of lumbar region with neurogenic claudication Spinal stenosis, lumbar region, with neurogenic claudication Primary hypertension Unspecified essential hypertension Type 2 diabetes mellitus, without long-term current use of insulin (HCC) documented in this encounter [facility] general Narrative - Reported* Type Description [...] CATHETERIZATION 2016 Hospitalization History SEE SURIGCAL HX [employer] Other History general Narrative - Reported* [...] knee arthroscopy 10/2022 Hospitalization History SEE SURIGCAL [employer] Other Reason for referral (narrative)* Reason Evaluation of right knee pain Diagnosis 1 Strain of right knee , subsequent encounter (S86.257B) Referral Organization [facility] [employer] [facility] bhupinder Referring Provider First Name Robert Referring Provider Last Name Hamilton Referring Provider Specialty Internal Me yoni Referred Provider Rishi Parker Jr Referred Provider Specialty Orthopedic S urgery Referral Priority Routine [employer] Other Reason for referral (narrative)* Reason Referral for neck pa in Diagnosis 1 Cervicalgia (M54.2) Diagnosis 2 Cervical spondylosis (M47.812) Referral Organization [facility] [employer] [facility] bhupinder Referring Provider First Name Robert Referring Provider Last Name Hamilton Referring Provider Specialty Internal Ma dicine Referred Organization [facility] Referred Address [address] [place], [place],[address] Referred Provider Specialty Pain Medicin e Referral Priority Routine General Notes Patient has hx of ce rvical discectomy and fusion and presented w/ persistent neck pain, which radiated upwards causing a headache. She is being referred for treatment with the pain clinic. Clinical Notes Include MRI [employer] Other Reason for visit Narrative* Auth/Cert Specialty Diagnoses / Procedures Referred By Jass adams Referred To Contact Diagnoses Intractable back pain large disc herniation Kole, Jose Meier MD [address] [place] [address] Phone: tel: fax: [facility] [address] [place] [address] Referral ID Status Reason Start Date Expiration Date Visits Re quested Visits Authorized [id number] 1 1 [employer] Summary Purpose Family History No Family History [...] Visual hallucinations July 18, 2024 1 0:08am Chief Complaint Admit Date bp concerns June 25, 2024 10:0 4am Pre-Surgical Clearance; [facility] f/u back megan n July 04, 2024 2:57pm Amb Documentation July 11, 2024 8:5 1am BP concerns, pale, dizziness July 13, 2024 9:25am [facility] f/u, spinal stenosis, lumbar reg ion July 18, 2024 10:08am Back Pain July 25, 2024 8:33 am Reason for Visit Admit Date Cervical spondylosis [...] 2:57pm Type 2 diabetes mellitus with hyperglyce [facility] July 04, 2024 2:57pm Acute blood loss anemia July 13, 2024 9:25am Central stenosis of spinal canal June 242024 9:25am Herniated intervertebral disc of lumbar spine July 13, 2024 9:25am Hypotension due to hypovolemia June 9:25am Type 2 diabetes mellitus with hyperglyce dion July 13, 2024 9:25am Acute blood loss anemia July 18, 2024 10:08am Central stenosis of [...] DATE CREATED AUTHOR AUTHOR'S ORGANIZ ATION 07/04/2018 [facility] DATE CREATED AUTHOR AUTHOR'S ORGANIZ ATION 09/18/2020 [facility] DATE CREATED AUTHOR AUTHOR'S ORGANIZ ATION 08/27/2022 [facility] DATE CREATED AUTHOR AUTHOR'S ORGANIZ ATION 04/18/2024 [facility] DATE CREATED AUTHOR AUTHOR'S ORGANIZ ATION 06/23/2024 [facility] DATE CREATED AUTHOR AUTHOR'S ORGANIZ ATION 08/10/2024 [facility] REASON FOR VISIT (unrecogniz ed [...] July 04, 2024 End: July 04, 2024 Manager Relocation Relationship Specialty Start Date End Date Robert Villasenor DO [address] [place] [id number] PCP - General Internal Medicine 07/06/24 Team Status: Active Member Role Status Dates Robert Villasenor DO Primary Care Provider Active Start: July 11, 2024 Farrah Sheikh CMA Attending Provider Active Start: July 11, 2024 Team Status: Active Member Role Status Hakeem Villasenor DO Primary Care Provider Active Start: July 12, 2024 Tera Bazzi , Attending Provider Active S tart: July 12, [...] July 18, 2024 End: July 18, 2024 Team Status: Inactive Member Role Status Hakeem Villasenor DO Primary Care Provide r, Attending Provider Active Start: July 25, 2024 End: July 25, 2024 Goals (unrecognized section and content) [...] 50 mg, Oral, DAILY, First dose on Tue07/07/24 at 1000, Until Discontinued, Hold for HR [...] RN)2055 (Given - Provider: Chrissy Cuellar RN) 08 (Given - Provider: Bhavani Anderson RN)2099 [...] - Reason: Order parameters not met)1100 (Due)1700 (Due)2099 (Due) insulin lispro (HUMALOG,ADMELOG) injection vial 0-4 [...] parameters not met)2003 (Given - Provider: Sommer Alcala, FLETCHER) 0843 [...] Provider: Bhavani Anderson RN - Reason: Patient/family refused)2099 (Due) sodium chloride 0.9 % bolus 500 mL (COMPLETED) 500 mL (6.3 mL/kg), IntraVENous, at 247.9 mL/hr, Administer over 121 Minutes, ONCE, On Tue07/10/24 at 1430, For 1 dose 141 (New Bag - Provider: Bhavani Anderson RN)161 (Stopped - Provider: Bhavani Anderson RN) sodium [...] 125 mL/hr, CONTINUOUS, Starting on Tue07/08/24 at 2015, Post-op 1025 (Stopped - Prov [...] Bijal Zavala RN)1302 (Given - Provider: Irma Villagomez, FLETCHER)2130 (Given - Provider: Sommer Alcala, FLETCHER) 0533 (Given - Provider: Sommer Alcala RN)1702 (Given - Provider: Bhavani Anderson RN) 0843 [...] for injection by adding 1 mL of change management manager-supplied sterile diluent or sterile water for injection [...] hours. 0442 (See Alternative - Provider: Bijal Zavlaa RN)0853 (See Alternative - Provider: Irma Villagomez RN)1302 (See Alternative - Provider: Irma Villagomez RN)1724 (See Alternative - Provider: Irma Villagomez, FLETCHER)2130 (See Alternative - Provider: Sommer Alcala RN) [...] Irma Villagomez RN)1724 (Given - Provider: Irma Villagomez RN)2130 (Given - Provider: Sommer Alcala RN) 0134 (See Alternative - Provider: Sommer Alcala RN)0532 (Given - Provider: Sommer Alcala RN)0944 (Given - Provider: Bhavani Anderson, RN)1555 (Given - Provider: Bhavani Anderson, RN)2056 (Given - Provider: Chrissy Cuellar, FLETCHER) 0353 (See Alternative - Provider: Chrissy Cuellar RN)0843 (Given - Provider: Bhavani Anderson, RN) magnesium hydroxide (MILK OF MAGNESIA) 400 MG/5ML suspension 30 mL 30 mL, Oral, DAILY PRN, Starting on Tue07/08/24 at 1950, Until Discontinued, Constipation, First line therapy for constipation., Post-op 0 (Given - Provider: Sommer Alcala RN) magnesium [...] RN)110 (See Alternative - Provider: Irma Villagomez, RN) morphine (PF) injection 2 mg(Linked Group [...] BE BASED ON THE PRIMARY CLINICAL RECORDS. [employer] provides no warranty or guarantee of the accuracy or completeness of information in this document.
--- NOTE | 2024-09-21 06:59 | US_ITS ---
The [address] [address] Patient Name: CARROLL HARDEN MRN: [id number] date: 1960 Sex: F Assigned Patient Location: MRI Current Patient Location: MRI Accession/Order Number: [id number] Exam Date: 09/21/2024 09:47 Report Date: 09/21/2024 09:56 At the request of: MICA VILLASENOR DO Procedure: US extremity nonvascular LT LIMITED ULTRASOUND - left axilla CLINICAL DATA: Lump at the left axilla for the past month. COMPARISON: None Real-time ultrasound evaluation of the left axilla was performed. There are multiple lymph nodes with fatty elzbieta. The largest measures 21 x 6 x 18 mm, 21 x 9 x 21 mm and 17 x 6 x 12 mm. Cortical thickness measures up to 2.5 mm. No other cystic or solid masses are seen. US/US extremity nonvascular LT IMPRESSION: AXILLARY LYMPH NODES WITH BENIGN CONFIGURATION. Impression dictated by: Frannie Armenta M.D. 09/21/2024 9:56 AM Dictation Location: [place] [address] Electronically authenticated by: [id number] Y Date: 09/21/2024 09:56
--- NOTE | 2024-09-21 07:10 | MR_ITS ---
[place] [id number] Patient Name: CARROLL HARDEN MRN: [id number] date: 1960 Sex: F Assigned Patient Location: MRI Current Patient Location: MRI Accession/Order Number: [id number] Exam Date: 09/21/2024 09:28 Report Date: 09/21/2024 09:34 At the request of: MICA VILLASENOR DO Procedure: MR knee RT wo con MR knee RT wo con 09/21/2024 8:18 AM SIGNS AND SYMPTOMS: Acute right knee pain, weakness medially PROTOCOL: Multiplanar multisequence MR images of the right knee without contrast COMPARISON: None. FINDINGS: Fluid: There is a small joint effusion. There is a Presley's cyst measuring 2.6 x 1.2 x 0.4 cm in greatest dimension.. Medial compartment: Medial meniscus: There is an obliquely oriented tear of the posterior horn extending to the body of the medial meniscus.. No displaced fragments. Medial collateral ligament: Intact. Medial femoral condyle cartilage: There is partial thickness chondromalacia. Medial tibial plateau cartilage: There is partial thickness chondromalacia. Lateral compartment: Lateral meniscus: Intact. Lateral collateral ligament: Intact. Lateral femoral condyle cartilage: Preserved. Lateral tibial plateau cartilage: Preserved. Posterolateral corner: Popliteus tendon: Intact. Popliteofibular ligament: Intact. Proximal tibiofibular joint: Intact. Anterior compartment: Alignment: Normal. Quadriceps tendon: Intact. Patellar tendon: Intact. Retinaculum: Medial Intact. Lateral Intact. Patellar cartilage: There is partial thickness chondromalacia. Trochlea: Preserved. . Plica: None. Hoffa fat pad: Normal. Intercondylar compartment: Anterior cruciate ligament: Intact. Mucoid degeneration. Posterior cruciate ligament: Intact. Bones (other than subarticular marrow): Normal. Muscles: Normal. Vessels: Normal. Nerves: Normal. MR/MR knee RT wo con IMPRESSION: There is an obliquely oriented tear of the posterior horn extending to the body of the medial meniscus. No displaced fragments. There is a small joint effusion. There is a Presley's cyst measuring 2.6 x 1.2 x 0.4 cm in greatest dimension. There is partial thickness chondromalacia in the patellofemoral joint space and along the medial weightbearing joint space. Impression dictated by: Nam London M.D. 09/21/2024 9:34 AM Dictation Location: [place] [address] Electronically authenticated by: [id number] Y Date: 09/21/2024 09:34
[2024-09-21 07:15] LABS: Basophils Percent Auto 0.6 % (0.2-2.0); Eosinophils Absolute Auto 0.8 10^3/uL (0.0-0.7); Eosinophils Percent Auto 14.7 % (0.9-7.0); Hematocrit 35.4 % (36.0-48.0); Immature Granulocytes Abs Auto 0.01 10^3/uL (0.00-0.03); Immature Granulocytes Pct Auto 0.2 % (0.0-0.5); Lymphocytes Absolute Auto 2.1 10^3/uL (1.2-3.8); Lymphocytes Percent Auto 39.2 % (20.5-60.0); Mean Corpuscular HGB Conc 31.1 g/dL (29.9-35.2); Mean Corpuscular Hemoglobin 26.1 pg (26.7-34.0); Mean Corpuscular Volume 83.9 fL (81.0-99.0); Mean Platelet Volume 9.9 fL (9.5-13.5); Monocytes Absolute Auto 0.4 10^3/uL (0.3-0.8); Monocytes Percent Auto 8.4 % (1.7-12.0); Neutrophils Absolute Auto 1.9 10^3/uL (1.4-6.5); Neutrophils Percent Auto 36.9 % (43.0-75.0); Platelet Count 218 10^3/uL (150-450); Red Blood Count 4.22 10^6/uL (4.20-5.40); Red Cell Distribution Width 11.9 % (11.0-15.0); White Blood Count 5.3 10^3/uL (4.0-11.0)
[2024-09-21 07:44] LABS: Alanine Aminotransferase 29 U/L (14-59); Albumin Globulin Ratio 0.9; Albumin Level 3.2 g/dL (3.4-5.0); Alkaline Phosphatase 89 U/L (46-116); Aspartate Amino Transferase 22 U/L (15-37); BUN Creatinine Ratio 30.4; Bilirubin Total 0.4 mg/dL (0.2-1.0); Calcium 9.2 mg/dL (8.5-10.1); Carbon Dioxide 28.3 mmol/L (21.0-32.0); Chloride 105 mmol/L (98-107); Chol HDL Ratio 3.2; Cholesterol 136 mg/dL (<=200); Estimated GFR (African America >60 (>=60 mL/min/1.73m^2); Estimated GFR (Non-African Ame 54 (>=60 mL/min/1.73m^2); Globulin 3.7 g/dL; Glucose 119 mg/dL (74-106); HDL Cholesterol 42 mg/dL (40-60); Potassium 5.3 mmol/L (3.5-5.1); Sodium 143 mmol/L (136-145); Thyroid Stimulating Hormone 0.633 uIU/mL (0.358-3.740); Total Protein 6.9 g/dL (6.4-8.2); Triglycerides 188 mg/dL (<=150); VLDL CHOLESTEROL 37.6 mg/dL
== END 2024-09-21 06:48 | disposition home or self-care (01) ==
LOC: MRI 06:49
PROVIDERS: PCP Internal Medicine; Visit Provider Internal Medicine
DX: M25.561 Pain in right knee (principal); E11.65 Type 2 diabetes mellitus with hyperglycemia; D64.9 Anemia, unspecified; N18.9 Chronic kidney disease, unspecified; E06.3 Autoimmune thyroiditis; E78.00 Pure hypercholesterolemia, unspecified; S83.241A Other tear of medial meniscus, current injury, right knee, initial encounter; M25.461 Effusion, right knee; M71.21 Synovial cyst of popliteal space [Baker], right knee; M94.261 Chondromalacia, right knee; I12.9 Hypertensive chronic kidney disease with stage 1 through stage 4 chronic kidney disease, or unspecified chronic kidney disease
CPT/HCPCS: 73721; 76882; 80053; 80061; 84443; 85025

== ENCOUNTER 2024-10-13 08:48 | Outpatient (OUT) | payer OTHER, SELFPAY ==
--- OUTSIDE RECORDS SUMMARY | 2024-10-01 09:50 | XMS_ITS ---
Author Organization [facility] Address [address] [place] [address] Care Team Providers Care Product Manager Financial Services Name Role Phone MICA VILLASENOR DO Primary Care Provider Joseph noland Eloise Meehan Unavailable [phone] Tomás Helton Unavailable [phone] REASON FOR VISIT rt knee pain, Right knee pain Medications Medication SIG (Take, Route, Fr equency, Duration) Notes Start Date End Date Status pregabalin 75 mg 1 cap(s) orally 3 ti mes a day for 30 days 07/30/2024 Active HYDROcodone Active gabapentin 300 mg 1 cap(s) orally 3 ti mes a day for 30 day(s) 07/27/2024 Active clonazePAM Active gabapentin Active etodolac Active Encounters Encounter Location Date Provider Diagnosis [facility] Office [address] [facility] [place] [address] 10/01/2024 Tomás Helton Pain, joint, knee, right M25.561 Assessments Encounter Date Diagnosis (ICD Code) Assessment Notes Treatment Notes Treatment Clinical Notes Section Notes 10/01/2024 Pain, joint, knee, right (ICD-10 - M25.561) Right knee OA 10/01/2024 Other Discussion had today with the patient regarding her right knee pain. She does have medial compartment narrowing. We discussed treatment options. She would like to try corticosteroid injection. Injection performed in the office today. Patient tolerated quite well. Will see her back in the office in 6 weeks Right knee OA Plan Of Treatment Treatment Notes Assessment Notes Other Discussion had today with the patient regarding her right knee pain. She does have medial compartment narrowing. We discussed treatment options. She would like to try corticosteroid injection. Injection performed in the office today. Patient tolerated quite well. Will see her back in the office in 6 weeks Pending Test Test Name Order Date SCC- KNEE 4 VIEW RIGHT [id number] 10/01/2024 Next Appt Details Provider Name:Eloise Ny, 10/19/2024 11:10:00 AM, [address] [facility], [place], [address], Provider Name:Tomás penny, 11/12/2024 02:00:00 PM, [address] [facility] [address], [place], [address], Progress Notes * CARROLL FUENTES ADOB:[birth year] (64 yo F)Acc No.[id number]:10/01/2024 Patient: CARROLL CARRERO Provider: Jany Helton DO :1960 A ge:64 Y S ex:Female Date:10/01/2024 Address:[facility] [place] [facility] Pcp:MICA VILLASENOR DO Subjective: * Chief Complaints: * 1 . Rt knee pain. 2. Right knee pain. * HPI: G eneral Follow Up Information: Patient is a pleasant 64-year-old female presents today for right knee pain. Pain is throbbing and aching in nature. Pain is made worse with activity. Pain improved with rest. Pain located on the medial aspect of the knee. Occasional catching and locking. 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 * ROS: C onstitutional: Denies C hills. P M and R Intake: Denies F ever. D enies fever, chills, showing. * Medical History: * Medications: T aking etodolac , Taking clonazePAM , Taking gabapentin , Taking HYDROcodone , Taking gabapentin 300 mg capsule 1 cap(s) orally 3 times a day , Taking pregabalin 75 mg capsule 1 cap(s) orally 3 times a day Objective: * Vitals: * Examination: G eneral examination: R ight lower extremity:Skin intact. No effusion. Medial joint line tenderness palpation. Pain with Aster's. Jaziel stable. Varus and valgus stress stable. Motor and sensory exam intact without deficit or 2+ DP pulse. X -ray Imaging Studies: I reviewed 4 views of the right knee in our office today demonstrates no acute fracture or osseous normality. Mild medial and lateral joint line compartment narrowing. No lytic or left blastic lesions. Assessment: * Assessment: 1. P ain, joint, knee, right - M25.561 Right knee OA. Plan: * Treatment: 2. O thers Notes: Discussion had today with the patient regarding her right knee pain. She does have medial compartment narrowing. We discussed treatment options. She would like to try corticosteroid injection. Injection performed in the office today. Patient tolerated quite well. Will see her back in the office in 6 weeks * Procedures: U nder sterile conditions the right knee is prepped with alcohol Betadine. The right knee joint was injected with a solution of 2 cc 0.25% Marcaine plain 80 mg Depo-Medrol. * Procedure Codes: 7 3564 X-ray Knee, complete 4 views Forms: * Images: * Electronic signature of Khris Helton DO on 10/11/2024 at 11:31 AM EDT Sign off status: Pending * Provider: Jany Helton DO Date: 0 10/01/2024 Generated for Carlene navarrete/Geena/Padminiitting on: 0 10/11/2024 11:31 AM EDT History and Physical Notes * HPI (History of Present Illness) Category Sub-Category Detail Notes Category Not es General Follow Up Information Patient is a macn t 64-year-old female presents today for right knee pain. Pain is throbbing and aching in nature. Pain is made worse with activity. Pain improved with rest. Pain located on the medial aspect of the knee. Occasional catching and locking. 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 Examination Category Sub-Category Detail Notes Category Not es General examination Right lo wer extremity:Skin intact. No effusion. Medial joint line tenderness palpation. Pain with Aster's. Jaziel stable. Varus and valgus stress stable. Motor and sensory exam intact without deficit or 2+ DP pulse X-ray Imaging Studies I revi ewed 4 views of the right knee in our office today demonstrates no acute fracture or osseous normality. Mild medial and lateral joint line compartment narrowing. No lytic or left blastic lesions.
--- OUTSIDE RECORDS SUMMARY | 2024-10-01 09:50 | XMS_ITS ---
Author Organization [facility] Address [address] [place] [address] Care Team Providers Care It Infrastructure Architect Name Role Phone MICA VILLASENOR DO Primary Care Provider Joseph noland Eloise Meehan Unavailable [phone] Tomás Helton Unavailable [phone] REASON FOR VISIT rt knee pain, Right [...] Active Encounters Encounter Location Date Provider Diagnosis [facility] Office [address] [facility] [place] [address] 10/01/2024 Tomás Helton Pain, joint, knee, right [...] Order Date SCC- KNEE 4 VIEW RIGHT [id number] 10/01/2024 Next Appt Details Provider Name:Eloise Ny, 10/19/2024 11:10:00 AM, [address] [facility], [place], [address], Provider Name:Tomás penny, 11/12/2024 02:00:00 PM, [address], [place], [address], Progress Notes * CARROLL FUENTES ADOB:[birth year] (64 yo F)Acc No.[id number]:10/01/2024 Patient: CARROLL CARRERO Provider: Jany Helton DO :1960 A ge:64 Y S ex:Female Date:10/01/2024 Address: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 * ROS: C onstitutional: Denies C hills. 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 Examination Category Sub-Category Detail Notes Category Not [...]
--- OUTSIDE RECORDS SUMMARY | 2024-10-11 11:37 | XMS_ITS | Clinical Summary ---
Author Organization [facility] Address [address] [place] [address] Care Team Providers Care Aluminum Pool Installer Name Role Phone Robert Cruz Primary Care Provider [phone] Medications No known medications Active Problems No [...] Not on file Insurance [employer] Care Teams Aluminum Pool Installer Relationship Specialty Start Date End Date Robert Cruz DO PCP - General Internal Medicine 10/01/22
--- OUTSIDE RECORDS SUMMARY | 2024-10-11 11:37 | XMS_ITS | Encounter Summary ---
Author Organization [facility] Address [address] [place] [address] Care Team Providers Care Neonatal Icu Coordinator Name Role Phone Robert Cruz DO Primary Care Provider [phone] Encounter Details Date Type Department Care Team (Late st Contact Info) Description 10/01/2022 Abstract [facility] [address] [facility] [address] [place] [id number] Isreal Clark PA 112 [facility] [address] [place] [address] Social History Tobacco Use Types Packs/Day Years [...] on filedocumented in this encounter Care Teams Neonatal Icu Coordinator Relationship Specialty Start Date End Date Robert Cruz DO PCP - General Internal Medicine 10/01/22 documented as of this encounter
--- OUTSIDE RECORDS SUMMARY | 2024-10-11 11:37 | XMS_ITS | Clinical Summary ---
Author Organization [facility] Address [id number] [address] [id number] Care Team Providers Care Customer Associate Name Role Phone Unavailable Primary Care Provider [...]
--- OUTSIDE RECORDS SUMMARY | 2024-10-11 11:37 | XMS_ITS | Clinical Summary ---
Author Organization [facility] Address [address] [place] [address] Care Team Providers Care Customer Loyalty Representative Name Role Phone Robert Cruz DO Primary Care Provider [phone] Allergies Active Allergy Reactions Criticality Noted Date [...] Encounters Date Type Department Care Team Description 07/06/2024 7:08 PM EDT - 07/11/2024 12:01 PM EDT Hospital Encounter [facility] [address] [address] Jose Sharif MD Discharge Disposition: Home or Self Care from Last 3 Months Social History Tobacco Use Types Packs/Day Years Used Date Smoking Tobacco: Never Smokeless Tobacco: Never Tobacco Cessation:Counseling Given: No Alcohol Use Standard Drinks/Week Comments Never 0 (1 standard drink = 0.6 oz pur e alcohol) [facility] Utilities Answer Date Recorded In the past 12 months has th e [employer], gas, oil, or water [place] threatened to shut off services in your [...] any time in the past 12 m [facility], were you homeless or living in a fpc (including now)? No 07/06/2024 Food Insecurity Answer [...] per FRAX score) 2014 COVID-19 Vaccine ( - 2023- season) 2023 Annual Wellness Visit (Medicare Advantage) [...] this topic Medical Devices Implanted Type Area Estimating Engineer Device Identifier Shelf Expiration Date Model / Serial / Lot Screw Spnl L45mm Dia6.5mm Post Thoracolumbosacral Co Chrom - [id number] Implanted:Qty: 2 on 07/08/2024 by Eloise Veliz MD at [facility] N/A: Spine Lumbar [employer] DANEK-WD [id number] / / Screw Spnl L40mm Dia6.5mm Post Thoracolumbosacral Co Chrom - [id number] Implanted:Qty: 2 on 07/08/2024 by Eloise Veliz MD at [facility] N/A: Spine Lumbar [employer] SO[employer] DANEK-WD [id number] / / Set Scr Spnl L6mm Dia5.5mm Ti Brk Off Svetlana W/ Detach Cdh - [id number] Implanted:Qty: 4 on 07/08/2024 by Eloise Veliz MD at [facility] N/A: Spine Lumbar [employer] DANEK-WD [id number] / / Evan Spnl L35mm Dia5.5mm Ant Post Thoracolumbosacral Ti - [id number] Implanted:Qty: 2 on 07/08/2024 by Eloise Veliz MD at [facility] N/A: Spine Lumbar [employer] DANEK-WD [id number] / / Procedures Procedure Name Priority Date/Time Associated Diagnosis Comments GLOMERULAR FILTRATION RATE, ESTIMATED Routine 07/11/2024 6:43 AM EDT ANION GAP Routine 07/11/2024 6:43 AM EDT HEMOGLOBIN AND HEMATOCRIT Routine 07/11/2024 6:43 AM EDT BASIC METABOLIC PANEL Routine 07/11/2024 6:43 AM EDT POCT GLUCOSE Routine 07/11/2024 6:23 AM EDT from Last 3 Months Results * Anion Gap (07/11/2024 6:43 AM EDT) Anion Gap 10.0 8.0 - 16.0 meq/L 07/11/2024 7:16 AM EDT [facility] Comment: ANION GAP = Sodium -([place] + CO2) Performed at [facility] [address] [place] [address] 07/11/2024 6:43 AM EDT 07/11/2024 6:48 AM EDT Dank CHAPMAN CHEMISTRY ORDERABLES Final Resu lt Performing Organization Address City/[facility]/ZIP Co de Phone Number [facility] [address] [place] [address], [facility] [phone] [facility] [address] [place] [address], [facility] [phone] * Glomerular Filtration Rate, Estimated (07/11/2024 6:43 AM EDT) [facility] Sajan Cage Filt Rate 62 >60 ml/min/1.7 3m2 07/11/2024 7:21 AM EDT [facility] Comment: Pediatric calculator link https://www.kidney.org/professionals/kdoqi/gfr_calculatorped Effective [...] that affects renal tubular secretion. Performed at [facility] [address] [place] [address] 07/11/2024 6:43 AM EDT 07/11/2024 6:43 AM EDT us Dank CHAPMAN CHEMISTRY ORDERABLES Final Resu lt [facility] [address] [place] [address], [facility] [phone] [facility] [address] [place] [address], [facility] [phone] * (ABNORMAL) Hemoglobin and Hematocrit (07/11/2024 6:43 AM EDT) Hemoglobin 10.8(L) 12.0 - 16.0 gm/dl 07/11/2024 7:16 AM EDT [facility] Hematocrit 33.4(L) 37.0 - 47.0 % 07/11/2024 7:16 AM EDT [facility] Comment:Performed at [facility] [address] [place] [address] BLOOD SPECIMEN / Unknown 07/11/2024 6:43 AM EDT 07/11/2024 6:48 AM EDT us Dank CHAPMAN HEMATOLOGY ORDERABLES Final Res ult [facility] [address] [place] [address], [facility] [phone] [facility] [address] [place] [address] * (ABNORMAL) Basic Metabolic Panel (07/11/2024 6:43 AM EDT) Pathologist [facility] Sodium 135 135 - 145 meq/L 07/11/2024 7:05 AM EDT [facility] Potassium 4.7 3.5 - 5.2 meq/L 07/11/2024 7:05 AM EDT [facility] Comment: Low level specimen hemolysis is present as indicated by the interference index on the Yamilet analyzer. The reported K+ level may be falsely increased. If clinically warranted, recollection of the specimen is suggested. [place] 103 98 - 111 meq/L 07/11/2024 7:05 AM EDT [facility] CO2 22 22 - 29 meq/L 07/11/2024 7:16 AM EDT [facility] Glucose 166(H) 74 - 109 mg/dL 07/11/2024 7:16 AM EDT [facility] BUN 16 8 - 23 mg/dL 07/11/2024 7:16 AM EDT [facility] Creatinine 1.0(H) 0.5 - 0.9 mg/dL 07/11/2024 7:16 AM EDT [facility] Calcium 8.9 8.8 - 10.2 mg/dL 07/11/2024 7:16 AM EDT [facility] Comment:Performed at [facility] [address] [place] [address] BLOOD SPECIMEN / Unknown 07/11/2024 6:43 AM EDT 07/11/2024 6:48 AM EDT us Dank CHAPMAN CHEMISTRY ORDERABLES Final Resu lt Performing Organization Address City/[facility]/ZIP Co de Phone Number [facility] [address] [place] [address], [facility] [phone] [facility] [address] [place] [address], [facility] [phone] * (ABNORMAL) POCT glucose (07/11/2024 6:23 AM EDT) [facility] POC Glucose 177(H) 70 - 108 mg/dl 07/11/2024 6:23 AM EDT [facility] Comment:Performed at [facility] [address] [place] [address] BLOOD SPECIMEN / Unknown 07/11/2024 6:23 AM EDT 07/11/2024 6:35 AM EDT us Dank CHAPMAN POINT OF CARE TEST ORDERABLES F inal Result [facility] [address] [place] [address], [facility] [phone] [facility] [address] [place] [address], [facility] [phone] from Last 3 Months Insurance [employer] Advance Directives Documents on File Type Date Recorded Patient Swimming Teacher Expl anation ACP-Advance Directive 07/13/2024 10:35 PM ACP-Advance Directive 07/13/2024 10:35 PM * Full Code (Latest Code Status on File) Date Activated Date Inactivated Comments 07/06/2024 7:55 PM 07/11/2024 2:07 PM Healthcare Agents on File Name Relationship Healthcare Agent Relationshi p Communication Babatunde Fuentes Spouse Primary Decision Maker Care Teams Customer Loyalty Representative Relationship Specialty Start Date End Date Robert Cruz DO [address] [place] [address] PCP - General Internal Medicine 07/06/24
--- OUTSIDE RECORDS SUMMARY | 2024-10-11 11:37 | XMS_ITS | Clinical Summary ---
Author Organization [facility] Address [address] [place], [place] [id number] Care Team Providers Care Professor Of Graphic Design Name Role Phone Robert Cruz Primary Care Provider [phone] Allergies Active Allergy Reactions Criticality Noted Date Comments Povidone-Iodine Hives,Itching 10/20/2016 Contrast Dye Anaphylaxis High 09/29/2010 Meperidine (Pf) Other: See Comments Medium 09/29/2010 hypotension Dhe Other: See Comments 08/16/2016 Respiratory arrest Hydromorphone (Bulk) Other: See Comments 2016 resiratory arrest Sumatriptan Succinate Hives Medium 09/29/2010 Influenza Vaccine Tri-Sp - Hives Medium 09/29/2010 Latex Anaphylaxis Medium 09/29/2010 [...] before breakfast. 3 8 Active rizatriptan (MAXALT BROADLOOM WEAVER) 10 mg disintegrating tablet DISSOLVE 1 TABLET [...] N ot on file 04/02/2020 Data from: https://www.neighborhoodatlas.medicine.[facility] [facility].edu/. Last address used for calculation Not on [...] series) 2034 Medical Devices Implanted Type Area Field Research Associate Device Identifier Shelf Expiration Date Model / Serial / Lot Cement Simplex P Speedset Bone Radiopaque Sterile - [id number] Implanted:Qty : 1 on 06/20/2018 by Avila Garsia MD at [facility] Cement / Putty Right: Bone - Shoulder [facility] 09/23/2019 [id number] / / [id number] Sta-Aq-L-Kind Implant - [id number] Implanted:Qty : 1 on 11/18/2016 at [facility] Implant Left: Bone - Shoulder [employer] [id number] / / [id number] Yjw-Wi-D-Kind Implant - [id number] Implanted:Qty : 1 on 11/18/2016 at [facility] Implant Left: Bone - Shoulder [employer] [id number] / / [id number] All Poly Pegged Glenoid Implanted:Qty : 1 on 11/18/2016 at [facility] Implant Left: Bone - Shoulder [employer] 08/17/2021 [id number] / [id number] / [id number] Short Humeral Stem, [id number] Implanted:Qty : 1 on 06/20/2018 by Avila Garsia MD at [facility] Implant Right: Bone - Shoulder [employer] 05/10/2024 520-10-000 / / [id number] Neutral Humeral Head [id number] Implanted:Qty : 1 on 06/20/2018 by Avila Garsia MD at [facility] Implant Right: Bone - Shoulder [employer] 05/01/2024 [id number] / / [id number] Neck Hum Altivate - [id number] Implanted:Qty : 1 on 11/18/2016 at [facility] Joint - Shoulder Left: Bone - Shoulder [employer] 08/19/2022 520-07-000 / / [id number] Comp Ru Allpoly 42mm Eplus - [id number] Implanted:Qty : 1 on 06/20/2018 by Avila Garsia MD at [facility] Joint - Shoulder Right: Bone - Shoulder [employer] 01/06/2023 521-07-242 / / [id number] Neck Hum Altivate - [id number] Implanted:Qty : 1 on 06/20/2018 by Avila Garsia MD at [facility] Joint - Shoulder Right: Bone - Shoulder [employer] 06/06/2024 520-07-000 / / [id number] Procedures Procedure Name Priority Date/Time Associated Diagnosis Comments BASIC METABOLIC PANEL Routine 06/07/2018 11:00 AM EST Glenohumeral arthritis, right from Last 3 Months or Most Recently Relevant to Health Maintenance Results * (ABNORMAL) BASIC METABOLIC PNL (06/07/2018 11:00 AM EST) Glucose 133(H) 74 - 99 mg/dL 06/07/2018 8:31 PM [facility] Comment: The [place] Diabetes Association (ADA) provides guidance for cutoff [...] Standards of Medical Care in Diabetes 2016, [place] Diabetes Association. Diabetes Care. 2016.39(Suppl 1). BUN 24(H) 7 - 21 mg/dL 06/07/2018 8:31 PM [facility] Creatinine 0.91 0.58 - 0.96 mg/dL 06/07/2018 8:31 PM [facility] Sodium 139 136 - 144 mmol/L 06/07/2018 8:31 PM [facility] Potassium 5.1 3.7 - 5.1 mmol/L 06/07/2018 8:31 PM [facility] Chloride 100 97 - 105 mmol/L 06/07/2018 8:31 PM [facility] CO2 26 22 - 30 mmol/L 06/07/2018 8:31 PM [facility] Anion Gap 13 9 - 18 mmol/L 06/07/2018 8:31 PM EST [facility] Calcium 9.6 8.5 - 10.2 mg/dL 06/07/2018 8:31 PM EST [facility] eGFR- >60 06/07/2018 8:31 PM EST [facility] eGFR-All Other Races >60 . 06/07/2018 8:31 PM EST [facility] Comment: eGFR (Estimated GFR) Units of [...] us Avila Garsia MD LABORATORY Final Result [facility] [address] 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
--- OUTSIDE RECORDS SUMMARY | 2024-10-11 11:37 | XMS_ITS | Patient Health Record ---
Author Organization [facility] Address [address] [place] [address] Care Team Providers Care Summer Intern Name Role Phone MICA CRUZ DO Primary Care Provider UnavailEloise Haq Unavailable [phone] Norbert Lewis Unavailable [phone] Dank Sams Unavailable [phone] Norbert Lamar Unavailable [phone] Henok Rosario Unavailable [phone] Tomás Helton Unavailable [phone] Brandi Duque Unavailable Allergies Allergen (clinical drug ingredient) Drug/Non Drug Allergy documented on EMR Reaction Allergy Type Onset Date Status meperidine dermerol (uncoded) Unknown Allergy Active Latex latex (uncoded) Unknown Allergy Acti ve DHEA Unknown Drug Allergy Active etodolac Lodine Unknown Drug Allergy Active Results Component Value Reference Range Notes CT Arthrogram - Right Should er Reviewed date:06/27/2024 12:33:41 PM Interpretation: Performing Lab: Notes/Report: XR LUMBAR SPINE 1 VW Reviewed date:07/11/2024 01:53:12 PM Interpretation: Performing Lab: Notes/Report: PROCEDURE: XR LUMBAR SPINE 1 VW [facility] [address] [place], [place] [address], Original Ordering Provider: Magdaleno GREWAL Provider Role: Ordering XR LUMBAR SPINE 1 VW Reviewed date:07/11/2024 01:53:12 PM Interpretation: Performing Lab: Notes/Report: MOBILE LATERAL LUMBAR SPINE: [facility] [address] [place] [place], [place] [address], Original Ordering Provider: SELVON F ZORAN, Interested Provider Role: Ordering SCC- SHOULDER 3 VIEW RIGHT 7 3030 Reviewed date:05/01/2024 03:44:49 PM Interpretation: Performing Lab: Notes/Report: MRI : Shoulder W/O Contrast Right - 477[address] Reviewed date:05/01/2024 03:44:41 PM Interpretation: Performing Lab: Notes/Report: Reason For Referral Reason REFERRAL TO [facility] Diagnosis 1 DDD (degenerative di sc disease), cervical (M50.30) Referral Organization [facility] Referring Provider First Name Eloise Referring Provider Last Name [facility] Zambrano Referring Provider Speciality Orthopedic Surgery Referred Organization Pain clinic General Notes Barb Kendall 2023 10:19:59 AM >, Barb Kendall 04/03/2024 03:22:45 PM >FAXED TO [facility] Referral Priority Routine Reason RAMO................. PLEASE OBTAIN AUTHORIZATION FOR RIGHT SHOULDER MRI - SEE NOTES Diagnosis 1 Acute pain of right shoulder (M25.511) Referral Organization [facility] Referring Provider First Name Norbert Referring Provider Last Name Lamar Referring Provider Speciality Orthopedic Surgery Referred Organization [facility] Referred Address [place], [place], Procedure 1 MRI Joint Upper Ext w/o Dye (59712) General Notes Cinthya Vila 2023 12:11:06 PM >SUSI WATSON TUESDAY, Rajin Benton 04/02/2024 04:08:03 PM >PER ROBERTA: The following [...] pain of right shoulder (M25.511) [facility] Referring Provider First Name Norbert Referring Provider Last Name Brianda Referring Provider Speciality Orthopedic Surgery Referred Organization [facility] Referred Address [facility] Procedure 1 CT UPPER EXTREMITY W /DYE (40771) General Notes Rajni Benton 025 01:33:00 PM [...] of right shoulder (Z96.611) Referral Organization [facility] Referring Provider First Name Henok Referring Provider Last Name Marlene Referring Provider Speciality Orthopedic Surgery Referred Organization [facility] v[facility]ul Referred Provider Henok Rosario Referred Address [facility] Referred Provider Specialty Orthopedic S urgery General Notes Sylvia Montgomery 08/2024 09:53:56 AM [...] Active clonazePAM Active gabapentin Active etodolac Active Social History Tobacco Use: Social History [...] Problem Status W/U Status Risk Notes Problem [id number] Arthrodesis status (Z98.1) Active confirmed Problem [id number] Pain, joint, knee, right (M25.561) Active confirmed Problem 07686826 Cervical pain (M54.2) Active confirmed Problem 399713442 Spondylolisthesi s , cervical region (M43.12) Active confirmed Problem Acquired spondylolisthesis (031847884) Spondylolisthesis , lumbar region (M43.16) Active confirmed Problem Displacement of lumbar intervertebral disc without myelopathy (43843315) Other intervertebral disc displacement, lumbar region (M51.26) Active confirmed Problem 209316734 Encounter for change or removal of drains (Z48.03) Active confirmed Problem [id number] oysterman (current) use of opiate analgesic (Z79.891) Active confirmed Problem 819956388571232 Sciatica of righ t side (M54.31) Active confirmed Problem 482602461 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) Active confirmed Problem 061886958 Lumbar spondylosis (M47.816) Active confirmed Problem 7460391979 Acute pain of right shoulder (M25.511) Active confirmed Problem 06559639 Other cervical disc degeneration at C4-C5 level (M50.321) Active confirmed Problem Spinal stenosis of lumbar region (00954727) Spinal stenosis, lumbar region without neurogenic claudication (M48.061) Active confirmed Problem 956486130 Encounter for other orthopedic aftercare (Z47.89) Active confirmed Problem Other intervertebral disc degeneration, lumbar region with discogenic back pain and lower extremity pain (M51.362) Active confirmed Vital Signs Height 5'1 in 07/13/2024 Weight 174 lbs 07/13/2024 BMI 32.87 07/13/2024 Encounters Encounter Location Date Provider Diagnosis [facility] Inpatient [address] [place], [place] [id number] 07/07/2024 Dank Diglio Spinal stenosis, lumbar region without neurogenic claudication M48.061 ; Other intervertebral disc displacement, lumbar region M51.26 and Spondylolisthesis, lumbar region M43.16 [facility] [address] [place] [address] 10/01/2024 Tomás Helton Pain, joint, knee, right M25.561 [facility] [address] [place] [address] 03/30/2024 [facility] Spondylolisthesis, cervical region M43.12 ; Other cervical disc degeneration at C4-C5 level M50.321 and Arthrodesis status Z98.1 [facility] [address] [place] [address] 04/02/2024 Norbert [place] Acute pain of right shoulder M25.511 [facility] [address] [facility] [place] [address] [place] [address] 04/30/2024 Norbert [place] Acute pain of right shoulder M25.511 [facility] [address] [place] [address] 05/30/2024 Henok Rosario Acute pain of right shoulder M25.511 [facility] [address] [place] [address] 06/27/2024 Henok Rosario Encounter for preprocedural laboratory examination Z01.812 ; Acute pain of right shoulder M25.511 ; Encounter for other preprocedural examination Z01.818 ; 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 and History of right shoulder replacement Z96.611 [facility] [address] [place] [address] 07/06/2024 Dank Diglio Sciatica of right si de M54.31 and Lumbar spondylosis M47.816 [facility] Inpatient [address] [place], [place] [id number] 07/08/2024 Selvon Zoran Spinal stenosis, lumbar region without neurogenic claudication M48.061 ; Other intervertebral disc displacement, lumbar region M51.26 ; Spondylolisthesis, lumbar region M43.16 and Other intervertebral disc degeneration, lumbar region with discogenic back pain and lower extremity pain M51.362 [facility] [address] [place] [address] [facility] Encounter for other orthopedic aftercare Z47.89 ; Encounter for change or removal of drains Z48.03 and Arthrodesis status Z98.1 [facility] [address] [facility] [place] [address] [place] [address] 07/27/2024 [facility] Encounter for other orthopedic aftercare Z47.89 and Arthrodesis status Z98.1 [facility] [address] [facility] [place] [address] 08/24/2024 [facility] Encounter for other orthopedic aftercare Z47.89 ; Arthrodesis status Z98.1 and penitentiary (current) use of opiate analgesic Z79.891 [facility] [address] [place] [address] 06/26/2024 Henok Rosario [facility] [place] [address] [place] [address] 06/27/2024 Henok Rosario [facility] [place] [address] [place] [address] 07/12/2024 Eloise Meehan [place] [address] [place] [address] 07/20/2024 Selvon Zoran Aftercare following surgery of the musculoskeletal system Z47.89 [facility] [place] [address] [place] [address] 07/30/2024 Norbertfelicia Lewis Spondylolisthesis, lumbar region M43.16 ; Spinal stenosis, lumbar region without neurogenic claudication M48.061 and Aftercare following surgery of the musculoskeletal system Z47.[address] [place] [address] [place] [address] 09/12/2024 Selvon Zoran Assessments Encounter Date Diagnosis [...] weeks s/p L3-5 decompression with L4-S1 fusion 07/30/2024 Spondylolisthesis, lumbar region (ICD-10 - M43.16) 07/30/2024 Spinal stenosis, lumbar region without neurogenic claudication (ICD-10 - M48.061) 08/24/2024 Arthrodesis status (ICD-10 - Z98.1) 1. 6 weeks s/p L3-5 decompression and L4-S1 fusion 07/08/2024 Other intervertebral disc displacement, lumbar region (ICD-10 - M51.26) 07/08/2024 Spinal stenosis, lumbar region without neurogenic claudication (ICD-10 - M48.061) 08/24/2024 Encounter for other orthopedic aftercare (ICD-10 - Z47.89) 1. 6 weeks s/p L3-5 decompression and L4-S1 fusion 10/01/2024 Pain, joint, knee, right (ICD-10 - M25.561) Right knee OA 07/13/2024 Arthrodesis status (ICD-10 - Z98.1) 1.5 days s/p L3-5 decompression/f usion 08/24/2024 penitentiary (current) use of opiate analgesic (ICD-10 - Z79.891) 1. 6 weeks s/ p L3-5 decompression and L4-S1 fusion 07/30/2024 Aftercare following surgery of the musculoskeletal system (ICD-10 - Z47.89) 07/08/2024 Spondylolisthesis, lumbar region (ICD-10 - M43.16) [...] painful total shoulder arthroplasty with subscapularis failure 10/01/2024 Other Discussion had today with the patient regarding her right knee pain. She does have medial compartment narrowing. We discussed treatment options. She would like to try corticosteroid injection. Injection performed in the office today. Patient tolerated quite well. Will see her back in the office in 6 weeks Right knee OA 03/30/2024 Other Plan established by Dr. Veliz. [...] shoulder arthroplasty she prefers to follow-up at [facility] and not the [facility]. I recommended a CT arthrogram to [...] weeks s/p L3-5 decompression with L4-S1 fusion 08/24/2024 Other Plan established by [...] decompression and L4-S1 fusion Plan Of Treatment Pending Test Test Name Order Date Lumbar spine, 4v flex ext - 47137 2024 Lumbar spine 2v ap and lat - 01755 07/27 Cell count 05/30/2024 Cervical spine,ap,lat,flex,ext - 63254 1 05/31/2023 EKG 06/27/2024 Crystals 05/30/2024 BMP 06/27/2024 MRSA (Bilateral Nares) PCR 06/27/2024 SFS - Lumbar Spine PT Order, Isometrics & Strenghening w/Modalities as needed, 2-3 times per week for 6 weeks 07/27/2024 CBC W Diff 05/30/2024 Type and Screen 06/27/2024 Urinalysis w/Reflex C and S 06/27/2024 AEROBIC AND ANAEROBIC CULTURE 05/30/2024 SCC- KNEE 4 VIEW RIGHT 36867 10/01/2024 FACET INJECTION 03/30/2024 ESR, CRP 05/30/2024 Aspiration for cultrues of Right shoulde r 05/30/2024 Next Appt Details Provider Name:Eloise Knox [facility], 10/19/2024 11:10:00 AM, [address] [place] [address], [address], Provider Name:Tomás penny, 11/12/2024 02:00:00 PM, [address] [place] [address], [place], [address], Insurance Providers Payer Name Payer Address Payer Phone Subscriber Number Group Number Insured Name Patient Relationship to Insured Coverage Start Date Coverage End Date Medicare [employer] [facility] [place] [address] [place] [address] [id number] [place] Self - patient is the insured 4 [facility] [address] [place] [address] [id number] [place] Self - patient is the insured 4 Medicare [address] [address] [place] [address] [id number] [place] Self - patient is the insured Medical (General) History Medical History History ICD Code High Blood Pressure Diabetes Thyroid disease Osteoporosis Osteoarthritis Depression 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
--- OUTSIDE RECORDS SUMMARY | 2024-10-11 11:46 | XMS_ITS | CCD ---
Author Organization [facility]ini[employer] Care Team Providers Care Database Coordinator Name Role Phone REECE GARSIAIC New Admitting [...] Unavailable Robert Villasenor DO Primary Care Provider KOLE, SOOUREMI A Admitting Unavailable MINESH SHARIFMI A Attending Unavailable TERA TRAN Referring Unavailable ROBERT VILLASENOR Primary Care Unavailable ELOISE VELIZ Consulting Unavailable Allergies Allergy Classification Reported Allergen(s) Allergy Type Date of Onset Reaction(s) Facility (3 sources) Contrast media; Translations: [CONTRAST DYE] Propensity to adverse reactions to drug (disorder) 09-30-19 11 [facility] Repository (2 sources) HYDROmorphone; Translations: [HYDROMORPHONE (BULK)] Drug Allergy 08-17-19 17 [facility] Repository (20 sources) Latex; Translations: [LATEX] Propensity to adverse reactions to drug (disorder) 09-30-19 11 [facility] Repository (2 sources) Meperidine; Translations: [MEPERIDINE (PF)] Drug Allergy 09-30-19 11 [facility] Repository (2 sources) Povidone-Iodine; Translations: [POVIDONE-IODINE] Drug Allergy 10-21-19 17 [facility] Repository (2 sources) SUMAtriptan; Translations: [SUMATRIPTAN SUCCINATE] Drug Allergy 09-30-19 11 [facility] Repository (2 sources) INFLUENZA VACCINE TRI-SP 09-10; Translations: [INFLUENZA VACCINE TRI-SP 09-10] Propensity to adverse reactions to drug (disorder) 09-30-19 11 [facility] Repository (3 sources) DHE; Translations: [DHE] Propensity to adverse reactions to drug (disorder) 10-24-19 13 [facility] Repository (20 sources) HYDROmorphone Drug Allergy 12-20-19 24 Unknown, Unknown Reaction [facility] (20 sources) Iodine; Translations: [iodine] Drug Allergy 10-24-19 13 Unknown, Unknown Reaction [facility] Repository (20 sources) Meperidine Drug Allergy 12-20-19 24 Unknown, Unknown Reaction [facility] (20 sources) SUMAtriptan Drug Allergy 12-20-19 24 [facility] (20 sources) Fluad Drug allergy 12-20-19 24 Unknown, Unknown Reaction [facility] (18 sources) DHEA Drug allergy 07-07-19 25 Anaphylaxis [facility] too[facility]me Other (2 sources) HYDROmorphone; Translations: [Dilaudid] Drug Allergy 10-24-19 13 [facility] Repository (1 source) Meperidine Drug Allergy 10-24-19 13 [facility] Repository (2 sources) Plasmin; Translations: [Imitrex] Drug Allergy 10-24-19 13 [facility] Repository (12 sources) influenza A virus (H1N1) antigen / influenza A virus (H3N2) antigen / influenza B virus antigen Drug Allergy 11-21-19 14 Comment:FLU VACCINE [facility] too[facility] Other (12 sources) Contraindication to Flu Injection Propensity to adverse reactions 03-07-20 Comment:advers e rxn/side effects [facility] Other (3 sources) patient allergy list reviewed by nurse or physicia Propensity to adverse reactions 12-22-19 Comment:Done [facility] too[facility] Other (7 sources) Calcium Drug Allergy 12-20-19 24 Unknown Reaction [facility] (7 sources) Calcium Carbonate Drug Allergy 12-20-19 24 Unknown Reaction [facility] (7 sources) prasterone (DHEA) Allergy to substance 12-20-19 24 Unknown Reaction [facility] (7 sources) Fluad Quadrivalent Allergy to substance 04-29-19 24 Comment:FLU VACCINE [facility] Comment on above: Onset Date: 11/21/19 14 (1 source) Meperidine; Translations: [Demerol HCl] Drug Allergy [facility] Repository (1 source) flu vaccines; Translations: [flu vaccines] Propensity to adverse reactions (disorder) [facility] Repository (1 source) Iodine Strong Propensity to adverse reactions to drug 07-07-19 Hives [facility] [employer] (1 source) Meperidine Drug Allergy 07-07-19 25 Other (See Comments) [employer] [facility] [place] Medications Current Medications Medication Drug Class(es) Dates [...] for injection by adding 1 mL of manager front office-supplied sterile diluent or sterile water for injection [...] 12:00am Start: 12-20-2023 take 1 capsule by [facility] once daily Magnesium Aspart,Citrate,Oxide 400 mg [...] disintegrating tablet 4 mg polyethylene glycol [id number] [id number] mg powder for oral solution (1 source) [...] every two hours as needed for headache Maxalt-FLAKER TENDER 10 MG 1 tablet Orally PRN headache, [...] (Normalized) Sig (Original) 20 ml albumin human, detention 250 mg/ml injection (1 source) Human Serum [...] Start: 07-08-2024 take 10 mg rectal ro deering once daily as needed for constipation 10 [...] days Sep, Active take [address] [facility] once daily as needed clonazePAM (KLONOPIN) [...] Post-op docusate sodium 50 mg / sennosides, detention 8.6 mg oral tablet (1 source) Start: [...] 20 mL/lumen, Post-[place] [address] mg powder for oral suspension (1 source) [...] Basophils (Bld) [#/Vol] Automated basophil count 0.0-0.1 [facility] Basophils/100 WBC Auto (Bld) on 07-18-2024 Basophils/100 WBC (Bld) Automated basophil % 0.2-2.0 [facility] Eosinophils/100 WBC Auto (Bl d)on 07-18-2024 Eosinophils/100 WBC (Bld) Automated eosinophil % 0.9-7.0 [facility] Erythrocyte distribution wid th Auto (RBC) [Ratio]on 07-18-2024 Erythrocyte distribution width (RBC) [Ratio] Erythrocyte distribution width [Ratio] by Automated count 11.0-15.0 [facility] Hematocrit Auto (Bld) [Volum e fraction]on 07-18-2024 Hematocrit (Bld) [Volume fraction] Hematocrit [Volume Fraction] of Blood by Automated count Low 36.0-48.0 [facility] Hemoglobin [Mass/volume] in Bloodon 07-18-2024 Hemoglobin (Bld) [Mass/Vol] Hemoglobin [Mass/volume] in Blood Low 12.0-16.0 [facility] Laboratory - Hematology and Cell countson 07-18-2024 Immature granulocytes/100 WBC (Bld) 0.6 % High 0.0-0.5 [facility] Leukocytes [#/volume] correc chip for nucleated erythrocytes in Blood by Automated counon 07-18-2024 WBC corrected for nucl RBC Auto (Bld) [#/Vol] Leukocytes [#/volume] corrected for nucleated erythrocytes in Blood by Automated coun 4.0-11.0 [facility] Lymphocytes Auto (Bld) [#/Vo l]on 07-18-2024 Lymphocytes (Bld) [#/Vol] Lymphocytes [#/volume] in Blood by Automated count 1.2-3.8 [facility] Lymphocytes/100 WBC Auto (Bl d)on 07-18-2024 Lymphocytes/100 WBC (Bld) Lymphocytes/100 leukocytes in Blood by Automated count 20.5-60.0 [facility] MCH Auto (RBC) [Entitic mass ]on 07-18-2024 MCH (RBC) [Entitic mass] MCH [Entitic mass] by Automated count 26.7-34.0 [facility] MCHC Auto (RBC) [Mass/Vol]on 07-18-2024 MCHC (RBC) [Mass/Vol] MCHC [Mass/volume] by Automated count 29.9-35.2 [facility] MCV Auto (RBC) [Entitic vol] on 07-18-2024 MCV (RBC) [Entitic vol] MCV [Entitic volume] by Automated count 81.0-99.0 [facility] Monocytes Auto (Bld) [#/Vol] on 07-18-2024 Monocytes (Bld) [#/Vol] Automated blood monocyte count 0.3-0.8 [facility] Monocytes/100 WBC Auto (Bld) on 07-18-2024 Monocytes/100 WBC (Bld) Automated monocyte % 1.7-12.0 [facility] Neutrophils Auto (Bld) [#/Vo l]on 07-18-2024 Neutrophils (Bld) [#/Vol] Neutrophils [#/volume] in Blood by Automated count 1.4-6.5 [facility] Neutrophils/100 WBC Auto (Bl d)on 07-18-2024 Neutrophils/100 WBC (Bld) Automated neutrophil % 43.0-75.0 [facility] No Panel Informationon 07-18 Eosinophils # (Auto) 0.3 10 3/uL 0.0-0.7 [facility] Immature Granulocyte # (Auto) 0.03 10 3/uL 0.00-0.03 [facility] Platelet mean volume Auto (B ld) [Entitic vol]on 07-18-2024 Platelet mean volume (Bld) [Entitic vol] Platelet mean volume [Entitic volume] in Blood by Automated count Low 9.5-13.5 [facility] Platelets Auto (Bld) [#/Vol] on 07-18-2024 Platelets (Bld) [#/Vol] Platelets [#/volume] in Blood by Automated count 150-450 [facility] RBC Auto (Bld) [#/Vol]on RBC (Bld) [#/Vol] Erythrocytes [#/volu me] in Blood by Automated count Low 4.20-5.40 [facility] Basophils Auto (Bld) [#/Vol] on 07-12-2024 Basophils (Bld) [#/Vol] Automated basophil count 0.0-0.1 [facility] Basophils/100 WBC Auto (Bld) on 07-12-2024 Basophils/100 WBC (Bld) Automated basophil % 0.2-2.0 [facility] Eosinophils/100 WBC Auto (Bl d)on 07-12-2024 Eosinophils/100 WBC (Bld) Automated eosinophil % 0.9-7.0 [facility] Erythrocyte distribution wid th Auto (RBC) [Ratio]on 07-12-2024 Erythrocyte distribution width (RBC) [Ratio] Erythrocyte distribution width [Ratio] by Automated count 11.0-15.0 [facility] Estimated glomerular filtrat ion rate (GFR) non- Americanon 07-12-2024 GFR/1.73 sq M.predicted among non-blacks MDRD (S/P/Bld) [Vol rate/Area] Estimated glomerular filtration rate (GFR) non- Low >=60 mL/min/1.73m 2 [facility] Hematocrit Auto (Bld) [Volum e fraction]on 07-12-2024 Hematocrit (Bld) [Volume fraction] Hematocrit [Volume Fraction] of Blood by Automated count Low 36.0-48.0 [facility] Hemoglobin [Mass/volume] in Bloodon 07-12-2024 Hemoglobin (Bld) [Mass/Vol] Hemoglobin [Mass/volume] in Blood Low 12.0-16.0 [facility] Laboratory - Chemistry and C hemistry - challengeon 07-12-2024 Calcium [Mass/Vol] 8.6 mg/dL 8.5-10.1 [facility] Chloride [Moles/Vol] 102 mmol/L 98-107 [facility] CO2 [Moles/Vol] 24.7 mmol/L 21.0-32.0 [facility] Creatinine [Mass/Vol] 1.94 mg/dL High 0.55-1.02 [facility] GFR/1.73 sq M.predicted MDRD (S/P/Bld) [Vol rate/Area] 31 mL/min/{1.73_m2} Low >=60 mL/min/1.73m 2 [facility] Glucose [Mass/Vol] 203 mg/dL High 74-106 [facility] Potassium [Moles/Vol] 4.6 mmol/L 3.5-5.1 [facility] Sodium [Moles/Vol] 137 mmol/L 136-145 [facility] Urea nitrogen [Mass/Vol] 24.0 mg/dL High 7.0-18.0 [facility] Urea nitrogen/Creatinine [Mass ratio] 12.4 mg/mg [facility] Laboratory - Hematology and Cell countson 07-12-2024 Immature granulocytes/100 WBC (Bld) 1.8 % High 0.0-0.5 [facility] Leukocytes [#/volume] correc chip for nucleated erythrocytes in Blood by Automated counon 07-12-2024 WBC corrected for nucl RBC Auto (Bld) [#/Vol] Leukocytes [#/volume] corrected for nucleated erythrocytes in Blood by Automated coun 4.0-11.0 [facility] Lymphocytes Auto (Bld) [#/Vo l]on 07-12-2024 Lymphocytes (Bld) [#/Vol] Lymphocytes [#/volume] in Blood by Automated count 1.2-3.8 [facility] Lymphocytes/100 WBC Auto (Bl d)on 07-12-2024 Lymphocytes/100 WBC (Bld) Lymphocytes/100 leukocytes in Blood by Automated count 20.5-60.0 [facility] MCH Auto (RBC) [Entitic mass ]on 07-12-2024 MCH (RBC) [Entitic mass] MCH [Entitic mass] by Automated count 26.7-34.0 [facility] MCHC Auto (RBC) [Mass/Vol]on 07-12-2024 MCHC (RBC) [Mass/Vol] MCHC [Mass/volume] by Automated count 29.9-35.2 [facility] MCV Auto (RBC) [Entitic vol] on 07-12-2024 MCV (RBC) [Entitic vol] MCV [Entitic volume] by Automated count 81.0-99.0 [facility] Monocytes Auto (Bld) [#/Vol] on 07-12-2024 Monocytes (Bld) [#/Vol] Automated blood monocyte count 0.3-0.8 [facility] Monocytes/100 WBC Auto (Bld) on 07-12-2024 Monocytes/100 WBC (Bld) Automated monocyte % 1.7-12.0 [facility] Neutrophils Auto (Bld) [#/Vo l]on 07-12-2024 Neutrophils (Bld) [#/Vol] Neutrophils [#/volume] in Blood by Automated count 1.4-6.5 [facility] Neutrophils/100 WBC Auto (Bl d)on 07-12-2024 Neutrophils/100 WBC (Bld) Automated neutrophil % 43.0-75.0 [facility] No Panel Informationon 07-12 Eosinophils # (Auto) 0.2 10 3/uL 0.0-0.7 [facility] Immature Granulocyte # (Auto) 0.13 10 3/uL High 0.00-0.03 [facility] Platelet mean volume Auto (B ld) [Entitic vol]on 07-12-2024 Platelet mean volume (Bld) [Entitic vol] Platelet mean volume [Entitic volume] in Blood by Automated count 9.5-13.5 [facility] Platelets Auto (Bld) [#/Vol] on 07-12-2024 Platelets (Bld) [#/Vol] Platelets [#/volume] in Blood by Automated count 150-450 [facility] RBC Auto (Bld) [#/Vol]on RBC (Bld) [#/Vol] Erythrocytes [#/volu me] in Blood by Automated count Low 4.20-5.40 [facility] Serum or plasma anion gap de terminationon 07-12-2024 Anion gap [Moles/Vol] Serum or plasma anion gap determination [facility] ANION GAPon 07-11-2024 Anion gap [Moles/Vol] 10.0 mmol/L Normal 8.0-16.0 [facility] Comment on above: Result Comment: ANIO N GAP = Sodium -(Chloride + CO2) Performed By: #### P OCGL #### [facility] [address] [place] [address] Anion Gapon 07-11-2024 Anion gap [Moles/Vol] 10 mmol/L 8.0 - 16.0 meq/L [facility] Comment on above: ANION GAP = Sodium - (Chloride + CO2) Performed at [facility] [address] [place] [address] BASIC METABOL PANELon 2024 Calcium [Mass/Vol] 8.9 mg/dL Normal 8.8-10.2 [facility] Comment on above: Performed By: #### P OCGL #### [facility] [address] [place] [address] CO2 [Moles/Vol] 22 mmol/L Normal 22-29 [facility] Comment on above: Performed By: #### P OCGL #### [facility] [address] [address] Creatinine [Mass/Vol] 1.0 mg/dL High 0.5-0.9 [facility] Comment on above: Performed By: #### P OCGL #### [facility] [address] [place] [address] Glucose [Mass/Vol] 166 mg/dL High 74-109 [facility] Comment on above: Performed By: #### P OCGL #### [facility] [address] [place] [address] Urea nitrogen [Mass/Vol] 16 mg/dL Normal 8-23 [facility] Comment on above: Performed By: #### P OCGL #### [facility] [address] [place] [address] Chloride [Moles/Vol] 103 mmol/L Normal 98-111 [facility] Comment on above: Performed By: #### P OCGL #### [facility] [address] [place] [address] Potassium [Moles/Vol] 4.7 mmol/L Normal 3.5-5.2 [facility] Comment on above: Result Comment: Low level specimen hemolysis is present as indicated by the interference index on the Yamilet analyzer. ??The reported K+ level may be falsely increased. If clinically warranted, recollection of the specimen is suggested. Performed By: #### P OCGL #### [facility] [address] [place] [address] Sodium [Moles/Vol] 135 mmol/L Normal 135-145 [facility] Comment on above: Performed By: #### P OCGL #### [facility] [address] [place] [address]990 Basic metabolic 2000 panelon 07-11-2024 Calcium [Mass/Vol] 8.9 mg/dL 8.8 - 10. 2 mg/dL [facility] Comment on above: Performed at [facility] [address] [place] [address] Chloride [Moles/Vol] 103 mmol/L 98 - 11 1 meq/L [employer] [facility] CO2 [Moles/Vol] 22 mmol/L 22 - 29 meq/L [facility] Creatinine [Mass/Vol] 1.0 mg/dL High 0.5 - 0.9 mg/dL [facility] Glucose [Mass/Vol] 166 mg/dL High 74 - 109 mg/dL [facility] Interpretation and review of laboratory results Abnormal [facility] Potassium [Moles/Vol] 4.7 mmol/L 3.5 - 5.2 meq/L [facility] Comment on above: Low level specimen h emolysis is present as indicated by the interference index on the Yamilet analyzer. The reported K+ level may be falsely increased. If clinically warranted, recollection of the specimen is suggested. Sodium [Moles/Vol] 135 mmol/L 135 - 145 meq/L [facility] Urea nitrogen [Mass/Vol] 16 mg/dL 8 - 23 mg/dL [facility] GFR, ESTIMATEDon 07-11-2024 GFR/1.73 sq M.predicted MDRD (S/P/Bld) [Vol rate/Area] 62 mL/min/{1.73_m2} Normal >60 [facility] Comment on above: Pediatric calculator [...] that affects renal tubular secretion. Performed at [facility] [place] [address] Result Comment: Pedi atric calculator link [email or web address]://www.kidney.org/professionals/kdoqi/gfr_calculatorped [...] secretion. Performed By: #### P OCGL #### [employer] [facility] [address] [place] [address] GLUCOSE POCon 07-11-2024 Glucose [Mass/Vol] 177 mg/dL High 70-108 [email or web address] Comment on above: Performed at [facility] [address] [place] [address] Performed By: #### P OCGL #### [facility] [address] [place], [place] [id number] Glucose Auto test strip (Bld ) [Mass/Vol]on 07-11-2024 Interpretation and review of laboratory results Abnormal [email or web address] HGB,HCTon 07-11-2024 Hematocrit (Bld) [Volume fraction] 33.4 % Low 37.0-47.0 [facility] [email or web address] Comment on above: Performed at [facility] [address] [place] [address] Performed By: #### P OCGL #### [facility] [address] [place] [address] Hemoglobin (Bld) [Mass/Vol] 10.8 g/dL Low 12.0-16.0 [facility] Comment on above: Performed By: #### P OCGL #### [facility] [address] [place] [address] Hemoglobin and Hematocrit pa bhavna (Bld)on 07-11-2024 Interpretation and review of laboratory results Abnormal [facility] No Panel Informationon 07-11 [facility] ANION GAPon 07-10-2024 Anion gap [Moles/Vol] 8.0 mmol/L Normal 8.0-16.0 [facility] Comment on above: Result Comment: ANIO N GAP = Sodium -(Chloride + CO2) Performed By: #### P OCGL #### [facility] [address] [place] [address] Anion Gapon 07-10-2024 Anion gap [Moles/Vol] 8 mmol/L 8.0 - 16.0 meq/L [facility] Comment on above: ANION GAP = Sodium - (Chloride + CO2) Performed at [facility] [address] [place] [address] BASIC METABOL PANELon 2024 Calcium [Mass/Vol] 8.8 mg/dL Normal 8.8-10.2 [facility] Comment on above: Performed By: #### P OCGL #### [email or web address] [address] [place] [address] CO2 [Moles/Vol] 26 mmol/L Normal 22-29 [facility] Comment on above: Performed By: #### P OCGL #### [facility] [address] [place] [address] Creatinine [Mass/Vol] 1.1 mg/dL High 0.5-0.9 [facility] Comment on above: Performed By: #### P OCGL #### [email or web address] [address] [place] [address] Glucose [Mass/Vol] 198 mg/dL High 74-109 [facility] Comment on above: Performed By: #### P OCGL #### [facility] [address] [place] [address] Urea nitrogen [Mass/Vol] 24 mg/dL High 8-23 [facility] Comment on above: Performed By: #### P OCGL #### [facility] [address] [place] [address] Chloride [Moles/Vol] 101 mmol/L Normal 98-111 [facility] Comment on above: Performed By: #### P OCGL #### [facility] [address] [place] [address] Potassium [Moles/Vol] 4.6 mmol/L Normal 3.5-5.2 [facility] Comment on above: Performed By: #### P OCGL #### [facility] [address] [place] [address] Sodium [Moles/Vol] 135 mmol/L Normal 135-145 [facility] Comment on above: Performed By: #### P OCGL #### [facility] [address] [address] Basic metabolic 2000 panelon 07-10-2024 Calcium [Mass/Vol] 8.8 mg/dL 8.8 - 10. 2 mg/dL [facility] Comment on above: Performed at [facility] [address] [place] [address] Chloride [Moles/Vol] 101 mmol/L 98 - 11 1 meq/L [facility] CO2 [Moles/Vol] 26 mmol/L 22 - 29 meq/L [facility] Creatinine [Mass/Vol] 1.1 mg/dL High 0.5 - 0.9 mg/dL [employer] [facility] Glucose [Mass/Vol] 198 mg/dL High 74 - 109 mg/dL [employer] [facility] Potassium [Moles/Vol] 4.6 mmol/L 3.5 - 5.2 meq/L [facility] Sodium [Moles/Vol] 135 mmol/L 135 - 145 meq/L [facility] Urea nitrogen [Mass/Vol] 24 mg/dL High 8 - 23 mg/dL [facility] GFR, ESTIMATEDon 07-10-2024 GFR/1.73 sq M.predicted MDRD (S/P/Bld) [Vol rate/Area] 56 mL/min/{1.73_m2} Abnormal >60 [facility] Comment on above: Pediatric calculator [...] that affects renal tubular secretion. Performed at [email or web address] [address] [place] [address] Result Comment: Pedi atric calculator link https://www.kidney.org/professionals/kdoqi/gfr_calculatorped [...] secretion. Performed By: #### P OCGL #### [employer] [address] [place] [address] GLUCOSE POCon 07-10-2024 Glucose [Mass/Vol] 267 mg/dL High 70-108 [facility] Comment on above: Performed at [facility] [address] [place] [address] Performed By: #### P OCGL #### [employer] [address] [place] [address] Glucose [Mass/Vol] 154 mg/dL High 70-108 [facility] Comment on above: Performed at [facility] [address] [place] [address] Performed By: #### P OCGL #### [employer] [address] [place] [address] Glucose [Mass/Vol] 302 mg/dL High 70-108 [facility] Comment on above: Performed at [facility] [address] [place] [address] Performed By: #### P OCGL #### [facility] [place] [address] Glucose [Mass/Vol] 205 mg/dL High 70-108 [facility] Comment on above: Performed at [facility] [address] [place] [address] Performed By: #### P OCGL #### [place] [address] Glucose Auto test strip (Bld ) [Mass/Vol]on 07-10-2024 Interpretation and review of laboratory results Abnormal [facility] Interpretation and review of laboratory results Abnormal [facility] Interpretation and review of laboratory results Abnormal [facility] Interpretation and review of laboratory results Abnormal [facility] HGB,HCTon 07-10-2024 Hematocrit (Bld) [Volume fraction] 32.2 % Low 37.0-47.0 [facility] Comment on above: Performed at [facility] [address] [place] [address] Performed By: #### P OCGL #### [place] [address] Hemoglobin (Bld) [Mass/Vol] 10.0 g/dL Low 12.0-16.0 [facility] Comment on above: Performed By: #### P OCGL #### [place] [address] Hemoglobin and Hematocrit pa bhavna (Bld)on 07-10-2024 Hemoglobin (Bld) [Mass/Vol] 10 g/dL Low [facility] Interpretation and review of laboratory results Abnormal [facility] No Panel Informationon 07-10 Interpretation and review of laboratory results Abnormal [facility] ANION GAPon 07-09-2024 Anion gap [Moles/Vol] 10.0 mmol/L Normal 8.0-16.0 [facility] Comment on above: Result Comment: ANIO N GAP = Sodium -(Chloride + CO2) Performed By: #### P OCGL #### [facility] [address] [place] [address] Anion Gapon 07-09-2024 Anion gap [Moles/Vol] 10 mmol/L 8.0 - 16.0 meq/L [facility] Comment on above: ANION GAP = Sodium - (Chloride + CO2) Performed at [facility] [address] [place] [address] BASIC METABOL PANELon 2024 Calcium [Mass/Vol] 8.3 mg/dL Low 8.8-10.2 [facility] Comment on above: Performed By: #### P OCGL #### [facility] [address] [place] [address] CO2 [Moles/Vol] 23 mmol/L Normal 22-29 [facility] Comment on above: Performed By: #### P OCGL #### [facility] [address] [place] [address] Creatinine [Mass/Vol] 1.1 mg/dL High 0.5-0.9 [facility] Comment on above: Performed By: #### P OCGL #### [facility] [address] [place] [address] Glucose [Mass/Vol] 197 mg/dL High 74-109 [facility] Comment on above: Performed By: #### P OCGL #### [facility] [address] [place] [address] Urea nitrogen [Mass/Vol] 21 mg/dL Normal 8-23 [facility] Comment on above: Performed By: #### P OCGL #### [facility] [address] [place] [address] Chloride [Moles/Vol] 103 mmol/L Normal 98-111 [facility] Comment on above: Performed By: #### P OCGL #### [facility] [address] [place] [address] Potassium [Moles/Vol] 5.8 mmol/L High 3.5-5.2 [facility] Comment on above: Performed By: #### P OCGL #### [facility] [address] [place] [address] Sodium [Moles/Vol] 136 mmol/L Normal 135-145 [facility] Comment on above: Performed By: #### P OCGL #### [facility] [address] [place] [address] Basic metabolic 2000 panelon 07-09-2024 Calcium [Mass/Vol] 8.3 mg/dL Low 8.8 - 10. 2 mg/dL [facility] Comment on above: Performed at [facility] [address] [place] [address] Chloride [Moles/Vol] 103 mmol/L 98 - 11 1 meq/L [facility] CO2 [Moles/Vol] 23 mmol/L 22 - 29 meq/L [facility] Creatinine [Mass/Vol] 1.1 mg/dL High 0.5 - 0.9 mg/dL [facility] Glucose [Mass/Vol] 197 mg/dL High 74 - 109 mg/dL [facility] Potassium [Moles/Vol] 5.8 mmol/L High 3.5 - 5.2 meq/L [facility] Sodium [Moles/Vol] 136 mmol/L 135 - 145 meq/L [facility] Urea nitrogen [Mass/Vol] 21 mg/dL 8 - 23 mg/dL [facility] GFR, ESTIMATEDon 07-09-2024 GFR/1.73 sq M.predicted MDRD (S/P/Bld) [Vol rate/Area] 56 mL/min/{1.73_m2} Abnormal >60 [facility] Comment on above: Pediatric calculator link https://www.kidney.org/professionals/kdoqi/gfr_calculatorped [...] that affects renal tubular secretion. Performed at [email or web address] [address] [place] [address] Result Comment: Pedi atric calculator link https://www.kidney.org/professionals/kdoqi/gfr_calculatorped [...] secretion. Performed By: #### P OCGL #### [place] [address] GLUCOSE POCon 07-09-2024 Glucose [Mass/Vol] 211 mg/dL High 70-108 [facility] Comment on above: Performed at [facility] [place] [place] [address] Performed By: #### P OCGL #### [place] [address] Glucose [Mass/Vol] 212 mg/dL High 70-108 [facility] Comment on above: Performed at [facility] [address] [place] [address] Performed By: #### P OCGL #### [place] [address] Glucose [Mass/Vol] 169 mg/dL High 70-108 [facility] Comment on above: Performed at [facility] [address] [place] [address] Performed By: #### P OCGL #### [place] [address] Glucose [Mass/Vol] 229 mg/dL High 70-108 [facility] Comment on above: Performed at [facility] [address] [place] [address] Performed By: #### P OCGL #### [place] [address] Glucose [Mass/Vol] 203 mg/dL High 70-108 [facility] Comment on above: Performed at [facility] [address] [place] [address] Performed By: #### P OCGL #### [place] [address] HGB,HCTon 07-09-2024 Hematocrit (Bld) [Volume fraction] 36.7 % Low 37.0-47.0 [facility] Comment on above: Performed at [facility] [employer] [facility] [address] [place] [address] Performed By: #### P OCGL #### [place] [address] Hemoglobin (Bld) [Mass/Vol] 11.9 g/dL Low 12.0-16.0 [facility] Comment on above: Performed By: #### P OCGL #### [facility] [address] [place] [address] No Panel Informationon 07-09 Interpretation and review of laboratory results Abnormal [facility] POTASSIUMon 07-09-2024 Potassium [Moles/Vol] 4.7 mmol/L Normal 3.5-5.2 [facility] Comment on above: Performed By: #### K P #### [facility] [address] [place] [address] Potassiumon 07-09-2024 Potassium [Moles/Vol] 4.7 mmol/L 3.5 - 5.2 meq/L [facility] Comment on above: Performed at [facility] [facility] [address] [place] [address] GLUCOSE POCon 07-08-2024 Glucose [Mass/Vol] 266 mg/dL High 70-108 [facility] Comment on above: Performed at [facility] [facility] [address] [place] [address] Performed By: #### P OCGL #### [facility] [place] [address] Glucose [Mass/Vol] 120 mg/dL High 70-108 [facility] Comment on above: Performed at [facility] [employer] [facility] [address] [place] [address] Performed By: #### P OCGL #### [facility] [address] [place] [address] Glucose [Mass/Vol] 105 mg/dL Normal 70-108 [facility] Comment on above: Performed at [facility] [facility] [address] [place] [address] Performed By: #### P OCGL #### [facility] [address] [place] [address] Glucose [Mass/Vol] 136 mg/dL High 70-108 [facility] Comment on above: Performed at [facility] [facility] [address] [place] [address] Performed By: #### P OCGL #### [facility] [address] [place] [address] Glucose Auto test strip (Bld ) [Mass/Vol]on 07-08-2024 Interpretation and review of laboratory results Abnormal [facility] Interpretation and review of laboratory results Abnormal [facility] Interpretation and review of laboratory results Abnormal [facility] XR LUMBAR SPINE 1 VWon 07-08 XR [...] [facility] XR Lumbar spine Single viewo n 07-08-2024 1. Evidence of posterior fusion at L4-L5. Please refer to operative report for further details. This report has been created using voice recognition software. It may contain minor errors which are inherent in voice recognition technology. Electronically signed by Dr. Jerrod Betts [facility] Sivakumar Betts MD - 07/08/2024 PROCEDURE: XR [...] technology. Electronically signed by Dr. Jerrod Betts [facility] Radiology Study observation (narrative) [facility] Intraoperative appearance of the lumbar spine. This report has been created using voice recognition software. It may contain minor errors which are inherent in voice recognition technology. Electronically signed by Dr. Boo Headley [facility] MOBILE LATERAL LUMBA R SPINE: CLINICAL INFORMATION: surgery. L3-L5 decompression. L4-L5- fusion COMPARISON: No prior study. TECHNIQUE: A single lateral mobile view of the lumbar spine was obtained For localization purposes. FINDINGS: 2 spinal needles are present posteriorly directed at the L4 and L5 levels. [facility] Boo Headley MD - 07/08/2024 MOBILE LATERAL [...] technology. Electronically signed by Dr. Boo Headley [facility] Radiology Study observation (narrative) [facility] XR Lumbar spine Single viewO rdered By: Sivakumar Betts on 07-08-2024 [facility] Work Phone: XR Lumbar spine Single viewO rdered By: Boo Headley on 07-08-2024 [facility] Work Phone: ANION GAPon 07-07-2024 Anion gap [Moles/Vol] 14.0 mmol/L Normal 8.0-16.0 [facility] Comment on above: Result Comment: ANIO N GAP = Sodium -(Chloride + CO2) Performed By: #### B MP, EGFR1, CBCND, ANION #### [employer] [address] [place] [address] Anion Gapon 03-15-2025 Anion gap [Moles/Vol] 14 mmol/L 8.0 - 16.0 meq/L [facility] Comment on above: ANION GAP = Sodium - (Chloride + CO2) Performed at [facility] [address] [place] [address] BASIC METABOL PANELon 2024 CO2 [Moles/Vol] 21 mmol/L Low 22-29 [facility] Comment on above: Performed By: #### B MP, EGFR1, CBCND, ANION #### [facility] [address] [place] [address] Creatinine [Mass/Vol] 1.0 mg/dL High 0.5-0.9 [facility] Comment on above: Performed By: #### B MP, EGFR1, CBCND, ANION #### [address] [address] Glucose [Mass/Vol] 172 mg/dL High 74-109 [facility] Comment on above: Performed By: #### B MP, EGFR1, CBCND, ANION #### [address] [address] Urea nitrogen [Mass/Vol] 33 mg/dL High 8-23 [facility] Comment on above: Performed By: #### B MP, EGFR1, CBCND, ANION #### [address] [address] Calcium [Mass/Vol] 9.2 mg/dL Normal 8.8-10.2 [facility] Comment on above: Performed By: #### B MP, EGFR1, CBCND, ANION #### [address] [address] Chloride [Moles/Vol] 103 mmol/L Normal 98-111 [facility] Comment on above: Performed By: #### B MP, EGFR1, CBCND, ANION #### [address] [address] Potassium [Moles/Vol] 4.4 mmol/L Normal 3.5-5.2 [facility] Comment on above: Result Comment: Low level specimen hemolysis is present as indicated by the interference index on the Yamilet analyzer. ??The reported K+ level may be falsely increased. If clinically warranted, recollection of the specimen is suggested. Performed By: #### B MP, EGFR1, CBCND, ANION #### [facility] [address] [place] [address] Sodium [Moles/Vol] 138 mmol/L Normal 135-145 [facility] Comment on above: Performed By: #### B MP, EGFR1, CBCND, ANION #### [facility] [address] [place] [address] Basic metabolic 2000 panelon 07-07-2024 Calcium [Mass/Vol] 9.2 mg/dL 8.8 - 10. 2 mg/dL [facility] Comment on above: Performed at [facility] [address] [place] [address] Chloride [Moles/Vol] 103 mmol/L 98 - 11 1 meq/L [facility] CO2 [Moles/Vol] 21 mmol/L Low 22 - 29 meq/L [facility] Creatinine [Mass/Vol] 1.0 mg/dL High 0.5 - 0.9 mg/dL [facility] Glucose [Mass/Vol] 172 mg/dL High 74 - 109 mg/dL [facility] Interpretation and review of laboratory results Abnormal [facility] Potassium [Moles/Vol] 4.4 mmol/L 3.5 - 5.2 meq/L [facility] Comment on above: Low level specimen h emolysis is present as indicated by the interference index on the Yamilet analyzer. The reported K+ level may be falsely increased. If clinically warranted, recollection of the specimen is suggested. Sodium [Moles/Vol] 138 mmol/L 135 - 145 meq/L [facility] Urea nitrogen [Mass/Vol] 33 mg/dL High 8 - 23 mg/dL [facility] CBCon 07-07-2024 Erythrocyte distribution width (RBC) [Entitic vol] 40.3 fL 35.0 - 45.0 fL [facility] Platelets (Bld) [#/Vol] 236 10*3/uL [facility] RBC (Bld) [#/Vol] 4.73 10*6/uL [facility] [employer] WBC (Bld) [#/Vol] 8.6 10*3/uL [facility] CBC NO DIFFERENTIALon 2024 Erythrocyte distribution width (RBC) [Ratio] 12.6 % Normal 11.5-14.5 [facility] Comment on above: Performed By: #### B MP, EGFR1, CBCND, ANION #### [place] [address] Hematocrit (Bld) [Volume fraction] 41.6 % Normal 37.0-47.0 [facility] Comment on above: Performed By: #### B MP, EGFR1, CBCND, ANION #### [place] [address] Hemoglobin (Bld) [Mass/Vol] 13.5 g/dL Normal 12.0-16.0 [facility] Comment on above: Performed By: #### B MP, EGFR1, CBCND, ANION #### [place] [address] MCH (RBC) [Entitic mass] 28.5 pg Normal 26.0-33.0 [facility] Comment on above: Performed By: #### B MP, EGFR1, CBCND, ANION #### [place] [address] MCHC (RBC) [Mass/Vol] 32.5 g/dL Normal 32.2-35.5 [facility] Comment on above: Performed By: #### B MP, EGFR1, CBCND, ANION #### [place] [address] MCV (RBC) [Entitic vol] 87.9 fL Normal 81.0-99.0 [facility] Comment on above: Performed By: #### B MP, EGFR1, CBCND, ANION #### [place] [address] PLATELET 236 thou/mm3 Normal 130-400 [facility] Comment on above: Performed By: #### B MP, EGFR1, CBCND, ANION #### [facility] [employer] [address] [place] [address] Platelet mean volume (Bld) [Entitic vol] 9.6 fL Normal 9.4-12.4 [facility] Comment on above: Performed at [facility] [address] [place] [address] Performed By: #### B MP, EGFR1, CBCND, ANION #### [employer] [address] [place] [address] RBC 4.73 mill/mm3 Normal 4.20-5.40 [facility] Comment on above: Performed By: #### B MP, EGFR1, CBCND, ANION #### [employer] [address] [place] [address] RDW-SD 40.3 fL Normal 35.0-45.0 [facility] Comment on above: Performed By: #### B MP, EGFR1, CBCND, ANION #### [employer] [address] [place] [address] WBC 8.6 thou/mm3 Normal 4.8-10.8 [facility] Comment on above: Performed By: #### B MP, EGFR1, CBCND, ANION #### [employer] [address] [place] [address] GFR, ESTIMATEDon 07-07-2024 GFR/1.73 sq M.predicted MDRD (S/P/Bld) [Vol rate/Area] 62 mL/min/{1.73_m2} Normal >60 [facility] Comment on above: Pediatric calculator link [...] that affects renal tubular secretion. Performed at [employer] [place] [address] Result Comment: Pedi atric calculator link https://www.kidney.org/professionals/kdoqi/gfr_calculatorped [...] #### B MP, EGFR1, CBCND, ANION #### [place] [address] GLUCOSE POCon 07-07-2024 Glucose [Mass/Vol] 271 mg/dL High 70-108 [facility] Comment on above: Performed at [facility] [address] [place] [address] Performed By: #### P OCGL #### [place] [address] Glucose [Mass/Vol] 188 mg/dL High 70-108 [facility] Comment on above: Performed at [facility] [address] [place] [address] Performed By: #### P OCGL #### [place] [address] Glucose [Mass/Vol] 174 mg/dL High 70-108 [facility] Comment on above: Performed at [facility] [address] [place] [address] Performed By: #### P OCGL #### [address] [address] Glucose [Mass/Vol] 76 mg/dL Normal 70-108 [facility] Comment on above: Performed at [facility] [address] [place] [address] Performed By: #### P OCGL #### [address] [address] Glomerular Filtration Rate, Estimatedon 07-07-2024 [facility] Glucose Auto test strip (Bld ) [Mass/Vol]on 07-07-2024 Interpretation and review of laboratory results Abnormal [facility] Interpretation and review of laboratory results Abnormal [facility] Interpretation and review of laboratory results Abnormal [facility] [email or web address] No Panel Informationon 07-07 [facility] XR CHEST (2 VW)on 07-07-2024 XR [...] [facility] XR Chest 2 Viewson Impression: No acute cardiopulmonary disease. This document has been electronically signed by: Kj Epps MD on 07/07/2024 02:22 AM [facility] Chest X-ray: 2 views . Indication: Pulmonary congestion. Comparison: None Findings: The lungs are well aerated. No focal consolidation, or pleural effusion. The cardiac silhouette is normal in size. Bony thorax is grossly intact. Bilateral shoulder arthroplasty. External metallic density versus surgical hardware projects on the lower cervical spine. [facility] Kj Epps MD - [phone] [...] Kj Epps MD on 07/07/2024 02:22 AM [facility] Radiology Study observation (narrative) [facility] XR Chest 2 ViewsOrdered By: Kj Epps on 07-07-2024 [facility] ANION GAPon 07-06-2024 Anion gap [Moles/Vol] 14.0 mmol/L Normal 8.0-16.0 [facility] Comment on above: Result Comment: ANIO N GAP = Sodium -(Chloride + CO2) Performed By: #### P OCGL #### [place] [address] APTTon 07-06-2024 aPTT Coag (Bld) [Time] 29.5 s Normal 22.0-38.0 [facility] Comment on above: Result Comment: Ther apeutic Heparin Reference Range= 60-95 seconds (corresponds to 0.3 to 0.7 u/mL Anti-Xa factor activity) Performed By: #### P OCGL #### [place] [address] Anion Gapon 07-06-2024 Anion gap [Moles/Vol] 14 mmol/L 8.0 - 16.0 meq/L [facility] Comment on above: ANION GAP = Sodium - (Chloride + CO2) [place] [address] CBC WITH DIFFERENTIALon 06-23 ABS BASOPHILS 0.0 thou/mm3 Normal 0.0-0.1 [facility] Comment on above: Performed By: #### P OCGL #### [address] [address] ABS EOSINOPHILS 0.0 thou/mm3 Normal 0.0-0.4 [facility] Comment on above: Performed By: #### P OCGL #### [address] [address] ABS IMMATURE GRANS (IG) 0.05 thou/mm3 Normal 0.00-0.07 [facility] Comment on above: Performed By: #### P OCGL #### [address] [address] ABS LYMPHOCYTES 2.8 thou/mm3 Normal 1.0-4.8 [facility] Comment on above: Performed By: #### P OCGL #### [facility] [address] [place] [address] ABS MONOCYTES 0.8 thou/mm3 Normal 0.4-1.3 [facility] Comment on above: Performed By: #### P OCGL #### [address] [address] ABS NEUTROPHILS 7.9 thou/mm3 High 1.8-7.7 [facility] Comment on above: Performed By: #### P OCGL #### [address] [address] Basophils/100 WBC (Bld) 0.2 % Normal [facility] Comment on above: Performed By: #### P OCGL #### [address] [address] Eosinophils/100 WBC (Bld) 0.3 % Normal [facility] Comment on above: Performed By: #### P OCGL #### [address] [address] Erythrocyte distribution width (RBC) [Ratio] 12.5 % Normal 11.5-14.5 [facility] Comment on above: Performed By: #### P OCGL #### [address] [address] Hematocrit (Bld) [Volume fraction] 42.6 % Normal 37.0-47.0 [facility] Comment on above: Performed By: #### P OCGL #### [address] [address] Hemoglobin (Bld) [Mass/Vol] 13.8 g/dL Normal 12.0-16.0 [facility] Comment on above: Performed By: #### P OCGL #### [address] [address] IMMATURE GRANS (IG) 0.4 % Normal [facility] Comment on above: Performed By: #### P OCGL #### [address] [address] Lymphocytes/100 WBC (Bld) 24.0 % Normal [facility] Comment on above: Performed By: #### P OCGL #### [address] [address] MCH (RBC) [Entitic mass] 28.6 pg Normal 26.0-33.0 [facility] Comment on above: Performed By: #### P OCGL #### [address] [address] MCHC (RBC) [Mass/Vol] 32.4 g/dL Normal 32.2-35.5 [facility] Comment on above: Performed By: #### P OCGL #### [address] [address] MCV (RBC) [Entitic vol] 88.2 fL Normal 81.0-99.0 [facility] Comment on above: Performed By: #### P OCGL #### [address] [address] Monocytes/100 WBC (Bld) 6.8 % Normal [facility] Comment on above: Performed By: #### P OCGL #### [address] [address] Neutrophils/100 WBC (Bld) 68.3 % Normal [facility] Comment on above: Performed By: #### P OCGL #### [address] [address] NRBC 0 /100 wbc Normal [facility] Comment on above: Performed By: #### P OCGL #### [address] [address] PLATELET 274 thou/mm3 Normal 130-400 [facility] Comment on above: Performed By: #### P OCGL #### [address] [address] Platelet mean volume (Bld) [Entitic vol] 9.7 fL Normal 9.4-12.4 [facility] Comment on above: Performed By: #### P OCGL #### [address] [address] RBC 4.83 mill/mm3 Normal 4.20-5.40 [facility] Comment on above: Performed By: #### P OCGL #### [address] [address] RDW-SD 39.9 fL Normal 35.0-45.0 [facility] Comment on above: Performed By: #### P OCGL #### [address] [address] WBC 11.6 thou/mm3 High 4.8-10.8 [facility] Comment on above: Performed By: #### P OCGL #### [facility] [address] [place] [address] CBC with Auto Differentialon 07-06-2024 Basophils (Bld) [...] [facility] Comment on above: Performed at [facility] [address] [place] [address] Platelets (Bld) [#/Vol] 274 10*3/uL [facility] RBC (Bld) [#/Vol] 4.83 10*6/uL [facility] WBC (Bld) [#/Vol] 11.6 10*3/uL [facility] COMP. METABOLIC PANELon 06-23 Albumin [Mass/Vol] 4.3 g/dL Normal 3.4-4.9 [facility] Comment on above: Performed By: #### P OCGL #### [employer] [address] [place] [address] ALP [Catalytic activity/Vol] 65 U/L Normal 35-104 [facility] Comment on above: Performed By: #### P OCGL #### [employer] [address] [place] [address] ALT [Catalytic activity/Vol] 24 U/L Normal 10-35 [facility] Comment on above: Performed By: #### P OCGL #### [employer] [address] [address] AST [Catalytic activity/Vol] 23 U/L Normal 10-35 [facility] Comment on above: Performed By: #### P OCGL #### [facility] [employer] [address] [address] Bilirubin [Mass/Vol] 0.4 mg/dL Normal 0.3-1.2 [facility] Comment on above: Performed By: #### P OCGL #### [facility] [employer] [address] [address] Calcium [Mass/Vol] 9.6 mg/dL Normal 8.8-10.2 [facility] Comment on above: Performed By: #### P OCGL #### [facility] [employer] [address] [address] CO2 [Moles/Vol] 26 mmol/L Normal 22-29 [facility] Comment on above: Performed By: #### P OCGL #### [facility] [employer] [address] [address] Creatinine [Mass/Vol] 1.3 mg/dL High 0.5-0.9 [facility] Comment on above: Performed By: #### P OCGL #### [facility] [employer] [address] [address] Glucose [Mass/Vol] 259 mg/dL High 74-109 [facility] Comment on above: Performed By: #### P OCGL #### [facility] [employer] [address] [address] Protein [Mass/Vol] 7.2 g/dL Normal 6.4-8.3 [facility] Comment on above: Performed By: #### P OCGL #### [employer] [address] [place] [address] Urea nitrogen [Mass/Vol] 43 mg/dL High 8-23 [facility] Comment on above: Performed By: #### P OCGL #### [facility] [employer] [address] [place] [address] Chloride [Moles/Vol] 96 mmol/L Low 98-111 [facility] Comment on above: Performed By: #### P OCGL #### [employer] [address] [address] POTASSIUM WITH REFLEX MG 5.0 meq/L Normal 3.5-5.2 [facility] Comment on above: Result Comment: Low level specimen hemolysis is present as indicated by the interference index on the Yamilet analyzer. ??The reported K+ level may be falsely increased. If clinically warranted, recollection of the specimen is suggested. Performed By: #### P OCGL #### [facility] [employer] [address] [address] Sodium [Moles/Vol] 136 mmol/L Normal 135-145 [facility] Comment on above: Performed By: #### P OCGL #### [address] [address] Comprehensive metabolic 2000 panelon 07-06-2024 Albumin BCG dye [Mass/Vol] 4.3 g/dL 3.4 - 4.9 g/dL [facility] ALP [Catalytic activity/Vol] 65 U/L 35 - 104 U/L [facility] ALT No additional P-5'-P [Catalytic activity/Vol] 24 U/L 10 - 35 U/L [facility] Comment on above: Performed at [facility] [address] [place] [address] AST [Catalytic activity/Vol] 23 U/L 10 - 35 U/L [facility] Bilirubin [Mass/Vol] 0.4 mg/dL 0.3 - 1 .2 mg/dL [facility] Calcium [Mass/Vol] 9.6 mg/dL 8.8 - 10. 2 mg/dL [facility] Chloride [Moles/Vol] 96 mmol/L Low 98 - 11 1 meq/L [facility] CO2 [Moles/Vol] 26 mmol/L 22 - 29 meq/L [facility] Creatinine [Mass/Vol] 1.3 mg/dL High 0.5 - 0.9 mg/dL [facility] Glucose [Mass/Vol] 259 mg/dL High 74 - 109 mg/dL [facility] Potassium [Moles/Vol] 5.0 mmol/L 3.5 - 5.2 meq/L [facility] Comment on above: Low level specimen h emolysis is present as indicated by the interference index on the Yamilet analyzer. The reported K+ level may be falsely increased. If clinically warranted, recollection of the specimen is suggested. Protein [Mass/Vol] 7.2 g/dL 6.4 - 8.3 g/dL [employer] Sodium [Moles/Vol] 136 mmol/L 135 - 145 meq/L [employer] Urea nitrogen [Mass/Vol] 43 mg/dL High 8 - 23 mg/dL [employer] EKG 12 leadOrdered By: Kp Rodriges on 07-06-2024 Atrial Rate 68 BPM [employer] Work Phone: P Laurel 58 degrees [employer] Work Phone: P-R Interval 146 ms [employer] Work Phone: Q-T Interval 422 ms [employer] Work Phone: QRS Duration 82 ms [employer] Work Phone: QTc Calculation (Bazett) 448 ms [employer] Work Phone: R Laurel 67 degrees [employer] Work Phone: T Laurel 66 degrees [employer] Work Phone: Ventricular Rate 68 BPM [employer] Work Phone: [employer] Work Phone: EKG 12 leadon 07-06-2024 Normal sinus rhythm Possible Left atrial enlargement ST & T wave abnormality, consider anterior ischemia Abnormal ECG No previous ECGs available Clinical correlation is indicated Confirmed by Kp Rodriges ([id number]) on 07/06/2024 11:10:52 PM [facility] STR MUSE Kp Rodriges MD - 07/06/2024 Normal sinus rhythm Possible Left atrial enlargement ST & T wave abnormality, consider anterior ischemia Abnormal ECG No previous ECGs available Clinical correlation is indicated Confirmed by Kp Rodriges ([id number]) on 07/06/2024 11:10:52 PM [facility] EKG 12-LEADon 07-06-2024 EKG 12-LEAD 68 68 146 82 [phone] Normal sinus rhythm Possible Left atrial enlargement ST & T wave abnormality, consider anterior ischemia Abnormal ECG No previous ECGs available Clinical correlation is indicated Confirmed by Kp Rodriges ([id number]) on 07/06/2024 11:10:52 PM [email or web address]?Pa [id number]&Date= 06-07-2024&Time=20%3a11 %3a37%3a00&TestType=ECG &Site=3&OutputType=PDF& Ext=PDF Normal [facility] GFR, ESTIMATEDon 07-06-2024 GFR/1.73 sq M.predicted MDRD (S/P/Bld) [Vol rate/Area] 46 mL/min/{1.73_m2} Abnormal >60 [facility] Comment on above: Pediatric calculator link [...] that affects renal tubular secretion. Performed at [email or web address] [address] [place] [address] Result Comment: Soniya atric calculator link [email or web address]://www.kidney.org/professionals/kdoqi/gfr_calculatorped [...] secretion. Performed By: #### P OCGL #### [employer] [address] [place], [place] [id number] GLUCOSE POCon 07-06-2024 Glucose [Mass/Vol] 280 mg/dL High 70-108 [facility] [employer] Comment on above: Performed at [facility] [address] [place] [address] Performed By: #### P OCGL #### [facility] [employer] [address] [place], [place] [phone] Glucose Auto test strip (Bld ) [Mass/Vol]on 07-06-2024 Interpretation and review of laboratory results Abnormal [facility] [employer] INR Coag (PPP) [Relative jackie e]on 07-06-2024 [facility] [employer] No Panel Informationon 07-06 Interpretation and review of laboratory results Abnormal [facility] [employer] PROTHOMBIN TIMEon 07-06-2024 INR Coag (Bld) [Relative time] 1.02 {INR} Normal 0.85-1.13 [facility] Comment on above: Result Comment: ---- -----INDICATION INR Reference Range DVT, PE, AF, AMI, tissue heart valve 2.0 to 3.0 Mechanical prosthetic valves 2.5 to 3.5 Performed By: #### P OCGL #### [facility] [employer] [address] [place] [address] Protime-INRon 07-06-2024 INR Coag (PPP) [Relative time] 1.02 {INR} 0.85 - 1.13 [facility] [email or web address] Comment on above: ---------INDICATION- INR Reference Range DVT, PE, AF, AMI, tissue heart valve 2.0 to 3.0 Mechanical prosthetic valves 2.5 to 3.5 Performed at [facility] [place] [address] aPTT Coag (Bld) [Time]on aPTT Coag (PPP) [Time] 29.5 s [facility] [employer] Comment on above: Therapeutic Heparin Reference Range= 60-95 seconds (corresponds to 0.3 to 0.7 u/mL Anti-Xa factor activity) Performed at [facility] [address] [place] [id number] [place] [address] Estimated glomerular filtrat ion rate (GFR) non- Americanon 06-27-2024 GFR/1.73 sq M.predicted among non-blacks MDRD (S/P/Bld) [Vol rate/Area] Estimated glomerular filtration rate (GFR) non- Low >=60 mL/min/1.73m 2 [facility] Laboratory - Chemistry and C hemistry - challengeon 06-27-2024 Calcium [Mass/Vol] 9.8 mg/dL 8.5-10.1 [facility] Chloride [Moles/Vol] 101 mmol/L 98-107 [facility] CO2 [Moles/Vol] 28.6 mmol/L 21.0-32.0 [facility] Creatinine [Mass/Vol] 1.41 mg/dL High 0.55-1.02 [facility] GFR/1.73 sq M.predicted MDRD (S/P/Bld) [Vol rate/Area] 45 mL/min/{1.73_m2} Low >=60 mL/min/1.73m 2 [facility] Glucose [Mass/Vol] 66 mg/dL Low 74-106 [facility] Potassium [Moles/Vol] 5.1 mmol/L 3.5-5.1 [facility] Sodium [Moles/Vol] 139 mmol/L 136-145 [facility] Urea nitrogen [Mass/Vol] 29.0 mg/dL High 7.0-18.0 [facility] Urea nitrogen/Creatinine [Mass ratio] 20.6 mg/mg [facility] Bilirubin Ql (U) LARGE Abnormal NEGATIVE [facility] Glucose (U) [Mass/Vol] Negative NEGATIVE [facility] Ketones Ql (U) TRACE mg/dL Abnormal NEGATIVE [facility] pH (U) 5.5 [pH] 5.0-9.0 [facility] Specific gravity (U) [Rel density] 1.025 1.005-1.025 [facility] Urobilinogen Qn (U) 0.2 {Nela'U}/dL 0.2-1.0 [facility] Laboratory - Specimen inform ationon 06-27-2024 Appearance (U) CLEAR CLEAR [facility] Color (U) YELLOW YELLOW [facility] Laboratory - Urinalysison Leukocyte esterase Test strip Ql (U) Negative NEGATIVE [facility] Nitrite Ql (U) Negative NEGATIVE [facility] Protein Ql (U) Negative NEG/TRACE [facility] No Panel Informationon 06-27 Urine Microscopic Review NO [facility] Urine Occult Blood Negative NEGATIVE [facility] Serum or plasma anion gap de terminationon 06-27-2024 Anion gap [Moles/Vol] Serum or plasma anion gap determination [facility] No Panel Informationon 06-01 Miscellaneous Test COMMENT . [facility] Comment on above: Test Ordered: [id number] Aerobic Cult, Extended IncubAerobic Cult, Extended Incub [...] RRifampin STetracycline STrimethoprim/Sulfa SVancomycin SPerformed at: - [facility] [id number] Director: Noam Haskins PhD, Phone: [phone] Basophils Auto (Bld) [#/Vol] on 05-31-2024 Basophils (Bld) [#/Vol] Automated basophil count 0.0-0.1 [facility] Basophils/100 WBC Auto (Bld) on 05-31-2024 Basophils/100 WBC (Bld) Automated basophil % 0.2-2.0 [facility] Eosinophils/100 WBC Auto (Bl d)on 05-31-2024 Eosinophils/100 WBC (Bld) Automated eosinophil % 0.9-7.0 [facility] Erythrocyte distribution wid th Auto (RBC) [Ratio]on 05-31-2024 Erythrocyte distribution width (RBC) [Ratio] Erythrocyte distribution width [Ratio] by Automated count 11.0-15.0 [facility] Hematocrit Auto (Bld) [Volum e fraction]on 05-31-2024 Hematocrit (Bld) [Volume fraction] Hematocrit [Volume Fraction] of Blood by Automated count 36.0-48.0 [facility] Hemoglobin [Mass/volume] in Bloodon 05-31-2024 Hemoglobin (Bld) [Mass/Vol] Hemoglobin [Mass/volume] in Blood 12.0-16.0 [facility] Laboratory - Hematology and Cell countson 05-31-2024 ESR (Bld) [Velocity] 7 mm/h <=30 [facility] Immature granulocytes/100 WBC (Bld) 0.2 % 0.0-0.5 [facility] Leukocytes [#/volume] correc chip for nucleated erythrocytes in Blood by Automated counon 05-31-2024 WBC corrected for nucl RBC Auto (Bld) [#/Vol] Leukocytes [#/volume] corrected for nucleated erythrocytes in Blood by Automated coun 4.0-11.0 [facility] Lymphocytes Auto (Bld) [#/Vo l]on 05-31-2024 Lymphocytes (Bld) [#/Vol] Lymphocytes [#/volume] in Blood by Automated count 1.2-3.8 [facility] Lymphocytes/100 WBC Auto (Bl d)on 05-31-2024 Lymphocytes/100 WBC (Bld) Lymphocytes/100 leukocytes in Blood by Automated count 20.5-60.0 [facility] MCH Auto (RBC) [Entitic mass ]on 05-31-2024 MCH (RBC) [Entitic mass] MCH [Entitic mass] by Automated count 26.7-34.0 [facility] MCHC Auto (RBC) [Mass/Vol]on 05-31-2024 MCHC (RBC) [Mass/Vol] MCHC [Mass/volume] by Automated count 29.9-35.2 [facility] MCV Auto (RBC) [Entitic vol] on 05-31-2024 MCV (RBC) [Entitic vol] MCV [Entitic volume] by Automated count 81.0-99.0 [facility] Monocytes Auto (Bld) [#/Vol] on 05-31-2024 Monocytes (Bld) [#/Vol] Automated blood monocyte count 0.3-0.8 [facility] Monocytes/100 WBC Auto (Bld) on 05-31-2024 Monocytes/100 WBC (Bld) Automated monocyte % 1.7-12.0 [facility] Neutrophils Auto (Bld) [#/Vo l]on 05-31-2024 Neutrophils (Bld) [#/Vol] Neutrophils [#/volume] in Blood by Automated count 1.4-6.5 [facility] Neutrophils/100 WBC Auto (Bl d)on 05-31-2024 Neutrophils/100 WBC (Bld) Automated neutrophil % 43.0-75.0 [facility] No Panel Informationon 05-31 C-Reactive Protein, Quantitative <0.50 mg/dL <=0.50 [facility] Eosinophils # (Auto) 0.1 10 3/uL 0.0-0.7 [facility] Immature Granulocyte # (Auto) 0.01 10 3/uL 0.00-0.03 [facility] Platelet mean volume Auto (B ld) [Entitic vol]on 05-31-2024 Platelet mean volume (Bld) [Entitic vol] Platelet mean volume [Entitic volume] in Blood by Automated count Low 9.5-13.5 [facility] Platelets Auto (Bld) [#/Vol] on 05-31-2024 Platelets (Bld) [#/Vol] Platelets [#/volume] in Blood by Automated count 150-450 [facility] RBC Auto (Bld) [#/Vol]on RBC (Bld) [#/Vol] Erythrocytes [#/volu me] in Blood by Automated count 4.20-5.40 [facility] Basophils Auto (Bld) [#/Vol] on 12-27-2023 Basophils (Bld) [#/Vol] 0.1 10 3/uL 0.0-0.1 [facility] Basophils/100 WBC Auto (Bld) on 12-27-2023 Basophils/100 WBC (Bld) 1.0 % 0.2-2.0 [facility] Cholesterol in LDL Calc [Mas s/Vol]on 12-27-2023 Cholesterol in LDL [Mass/Vol] 63.0 mg/dL [facility] Comment on above: <100 mg/dl [id number] 0-129 mg/dl NEAR OR ABOVE [id number] mg/dl BORDERLINE [id number] mg/dl HIGH>190 mg/dl VERY HIGH Cholesterol in VLDL Calc [Ma ss/Vol]on 12-27-2023 Cholesterol in VLDL [Mass/Vol] 45.8 mg/dL [facility] Eosinophils/100 WBC Auto (Bl d)on 12-27-2023 Eosinophils/100 WBC (Bld) 8.3 % High 0.9-7.0 [facility] Erythrocyte distribution wid th Auto (RBC) [Ratio]on 12-27-2023 Erythrocyte distribution width (RBC) [Ratio] 11.9 % 11.0-15.0 [facility] Estimated glomerular filtrat ion rate (GFR) non- Americanon 12-27-2023 GFR/1.73 sq M.predicted among non-blacks MDRD (S/P/Bld) [Vol rate/Area] 47 mL/min/{1.73_m2} Low >=60 [facility] Globulin Calc (S) [Mass/Vol] on 12-27-2023 Globulin (S) [Mass/Vol] 3.2 g/dL [facility] Glucose mean value [Mass/vol ume] in Blood Estimated from glycated hemoglobinon 12-27-2023 Average glucose Estimated from glycated hemoglobin (Bld) [Mass/Vol] 143 mg/dL [facility] Hematocrit Auto (Bld) [Volum e fraction]on 12-27-2023 Hematocrit (Bld) [Volume fraction] 39.7 % 36.0-48.0 [facility] Hemoglobin [Mass/volume] in Bloodon 12-27-2023 Hemoglobin (Bld) [Mass/Vol] 12.9 g/dL 12.0-16.0 [facility] Laboratory - Chemistry and C hemistry - challengeon 12-27-2023 Albumin [Mass/Vol] 3.7 g/dL 3.4-5.0 [facility] ALP [Catalytic activity/Vol] 61 U/L 46-116 [facility] ALT [Catalytic activity/Vol] 36 U/L 14-59 [facility] AST [Catalytic activity/Vol] 24 U/L 15-37 [facility] Bilirubin [Mass/Vol] 0.6 mg/dL 0.2-1.0 [facility] Calcium [Mass/Vol] 9.2 mg/dL 8.5-10.1 [facility] Chloride [Moles/Vol] 101 mmol/L 98-107 [facility] Cholesterol [Mass/Vol] 146 mg/dL <=200 [facility] Cholesterol in HDL [Mass/Vol] 38 mg/dL Low 40-60 [facility] Comment on above: > or =60 mg/dl - LOW CARDIOVASCULAR RISK<40 mg/dl - HIGH CARDIOVASCULAR RISK CO2 [Moles/Vol] 26.8 mmol/L 21.0-32.0 [facility] Creatinine [Mass/Vol] 1.17 mg/dL High 0.55-1.02 [facility] GFR/1.73 sq M.predicted MDRD (S/P/Bld) [Vol rate/Area] 56 mL/min/{1.73_m2} Low >=60 [facility] Glucose [Mass/Vol] 138 mg/dL High 74-106 [facility] Potassium [Moles/Vol] 4.5 mmol/L 3.5-5.1 [facility] Protein [Mass/Vol] 6.9 g/dL 6.4-8.2 [facility] Sodium [Moles/Vol] 138 mmol/L 136-145 [facility] Triglyceride [Mass/Vol] 229 mg/dL High <=150 [facility] TSH Qn 0.834 m[IU]/L 0.358-3.740 [facility] Urea nitrogen [Mass/Vol] 23.0 mg/dL High 7.0-18.0 [facility] Urea nitrogen/Creatinine [Mass ratio] 19.7 mg/mg [facility] Laboratory - Hematology and Cell countson 12-27-2023 HbA1c (Bld) [Mass fraction] 6.6 % High 4.5-6.2 [facility] Comment on above: ADA RECOMMENDED LIMI T 4.0 - 6.0ADA THERAPEUTIC TARGET < 7.0ACTION SUGGESTED> 7.0 Immature granulocytes/100 WBC (Bld) 0.4 % 0.0-0.5 [facility] Leukocytes [#/volume] correc chip for nucleated erythrocytes in Blood by Automated counon 12-27-2023 WBC corrected for nucl RBC Auto (Bld) [#/Vol] 5.2 10 3/uL 4.0-11.0 [facility] Lymphocytes Auto (Bld) [#/Vo l]on 12-27-2023 Lymphocytes (Bld) [#/Vol] 2.2 10 3/uL 1.2-3.8 [facility] Lymphocytes/100 WBC Auto (Bl d)on 12-27-2023 Lymphocytes/100 WBC (Bld) 42.1 % 20.5-60.0 [facility] MCH Auto (RBC) [Entitic mass ]on 12-27-2023 MCH (RBC) [Entitic mass] 28.5 pg 26.7-34.0 [facility] MCHC Auto (RBC) [Mass/Vol]on 12-27-2023 MCHC (RBC) [Mass/Vol] 32.5 g/dL 29.9-35.2 [facility] MCV Auto (RBC) [Entitic vol] on 12-27-2023 MCV (RBC) [Entitic vol] 87.8 fL 81.0-99.0 [facility] Monocytes Auto (Bld) [#/Vol] on 12-27-2023 Monocytes (Bld) [#/Vol] 0.3 10 3/uL 0.3-0.8 [facility] Monocytes/100 WBC Auto (Bld) on 12-27-2023 Monocytes/100 WBC (Bld) 6.4 % 1.7-12.0 [facility] Neutrophils Auto (Bld) [#/Vo l]on 12-27-2023 Neutrophils (Bld) [#/Vol] 2.2 10 3/uL 1.4-6.5 [facility] Neutrophils/100 WBC Auto (Bl d)on 12-27-2023 Neutrophils/100 WBC (Bld) 41.8 % Low 43.0-75.0 [facility] No Panel Informationon 12-26 Eosinophils # (Auto) 0.4 10 3/uL 0.0-0.7 [facility] Immature Granulocyte # (Auto) 0.02 10 3/uL 0.00-0.03 [facility] Platelet mean volume Auto (B ld) [Entitic vol]on 12-27-2023 Platelet mean volume (Bld) [Entitic vol] 9.6 fL 9.5-13.5 [facility] Platelets Auto (Bld) [#/Vol] on 12-27-2023 Platelets (Bld) [#/Vol] 190 10 3/uL 150-450 [facility] RBC Auto (Bld) [#/Vol]on RBC (Bld) [#/Vol] 4.52 10 6/uL 4.20-5.40 [facility] Serum or plasma albumin/glob ulin mass ratioon 12-27-2023 Albumin/Globulin [Mass ratio] 1.2 {ratio} [facility] Serum or plasma anion gap de terminationon 12-27-2023 Anion gap [Moles/Vol] 14.7 mmol/L [facility] Serum or plasma total choles terol/high density lipoprotein (HDL) cholesterol mass desiree 12-27-2023 Cholesterol.total/Ch olesterol in HDL [Mass ratio] 3.8 {ratio} [facility] Comment on above: 3.3 - 4.4 [...] BERNY QUISPE Date: 2022-08-24 07:19 Normal [facility] CBC AUTO DIFFon 03-30-2022 BASO # 0.0 103/ul Normal 0.0-0.1 [facility] Comment on above: Performed By: #### C BC #### [facility] [address] [place] [address] Dr. Rc Foster Basophils/100 WBC (Bld) 0.4 % Normal 0.2-2.0 [facility] Comment on above: Performed By: #### C BC #### [facility] [address] [place] [address] Dr. Rc Foster EO # 0.3 103/ul Normal 0.0-0.7 [facility] Comment on above: Performed By: #### C BC #### [facility] [address] [place] [address] Dr. Rc Foster Eosinophils/100 WBC (Bld) 4.9 % Normal 0.9-7.0 [facility] Comment on above: Performed By: #### C BC #### [facility] [address] [place] [address] Dr. Rc Foster Erythrocyte distribution width (RBC) [Ratio] 12.2 % Normal 11.0-15.0 [facility] Comment on above: Performed By: #### C BC #### [facility] [address] [place] [address] Dr. Rc Foster Hematocrit (Bld) [Volume fraction] 39.8 % Normal 36.0-48.0 [facility] Comment on above: Performed By: #### C BC #### [facility] [address] [place] [address] Dr. Rc Foster Hemoglobin (Bld) [Mass/Vol] 13.1 g/dL Normal 12.0-16.0 [facility] Comment on above: Performed By: #### C BC #### [facility] [address] [place] [address] Dr. Rc Foster IG # 0.02 10e3/ul Normal 0.00-0.03 [facility] Comment on above: Performed By: #### C BC #### [facility] [address] [place] [address] Dr. Rc Foster IG % 0.4 % Normal 0.0-0.5 [facility] Comment on above: Performed By: #### C BC #### [facility] [address] [place] [address] Dr. Rc Foster LYMPH # 2.1 103/ul Normal 1.2-3.8 [facility] Comment on above: Performed By: #### C BC #### [facility] [address] [place] [address] Dr. Rc Foster Lymphocytes/100 WBC (Bld) 37.1 % Normal 20.5-60.0 [facility] Comment on above: Performed By: #### C BC #### [facility] [address] [place] [address] Dr. Rc Foster MANUAL DIFF REQ NO Normal [facility] Comment on above: Performed By: #### C BC #### [facility] [address] [place] [address] Dr. Rc Foster MCH (RBC) [Entitic mass] 28.7 pg Normal 26.7-34.0 [facility] Comment on above: Performed By: #### C BC #### [facility] [address] [address] [address] Rc Foster MCHC (RBC) [Mass/Vol] 32.9 g/dL Normal 29.9-35.2 [facility] Comment on above: Performed By: #### C BC #### [facility] [address] [place] [address] Dr. Rc Foster MCV (RBC) [Entitic vol] 87.1 fL Normal 81.0-99.0 [facility] Comment on above: Performed By: #### C BC #### [facility] [address] [place] [address] Dr. Rc Foster MONO # 0.4 103/ul Normal 0.3-0.8 [facility] [place] Comment on above: Performed By: #### C BC #### [facility] [address] [place] [address] Dr. Rc Foster Monocytes/100 WBC (Bld) 6.7 % Normal 1.7-12.0 [facility] [place] Comment on above: Performed By: #### C BC #### [facility] [address] [place] [address] Dr. Rc Foster NEUT # 2.9 103/ul Normal 1.4-6.5 [facility] [place] Comment on above: Performed By: #### C BC #### [facility] [address] [place] [address] Dr. Rc Foster Neutrophils/100 WBC (Bld) 50.5 % Normal 43.0-75.0 [facility] Comment on above: Performed By: #### C BC #### [facility] [address] [place] [address] Dr. Rc Foster Platelet mean volume (Bld) [Entitic vol] 9.7 fL Normal 9.5-13.5 [facility] Comment on above: Performed By: #### C BC #### [facility] [address] [place] [address] Dr. Rc Foster PLT 189 103/ul Normal 150-450 [facility] Comment on above: Performed By: #### C BC #### [facility] [address] [address] [address] Rc Foster RBC 4.57 106/ul Normal 4.20-5.40 [facility] [place] Comment on above: Performed By: #### C BC #### [facility] [address] [address] [address] Rc Foster WBC 5.7 103/ul Normal 4.0-11.0 [facility] [place] Comment on above: Performed By: #### C BC #### [facility] [address] [address] [address] Rc Foster GLYCOHEMOGLOBIN A1Con 2021 ADA RECOMMENDATION SEE BELOW Normal [facility] Comment on above: Result Comment: ADA RECOMMENDED LIMIT 4.0 - 6.0 ADA THERAPEUTIC TARGET < 7.0 ACTION SUGGESTED > 7.0 Performed By: #### A 1C #### [facility] [address] [address] [address] Rc Foster Glucose [Mass/Vol] 143 mg/dL Normal [facility] Comment on above: Performed By: #### A 1C #### [facility] [address] [address] [address] Rc Foster HbA1c (Bld) [Mass fraction] 6.6 % Critically high 4.5-6.2 [facility] [place] Comment on above: Performed By: #### A 1C #### [facility] [address] [address] [address] Rc Foster LIPID PROFILEon 03-30-2022 CHOL-HDL RATIO NORM SEE BELOW Normal [facility] Comment on above: Result Comment: 3.3 - 4.4 LOW RISK 4.4 - 7.1 AVERAGE RISK 7.1 - 11.0 MODERATE RISK >11.0 HIGH RISK Performed By: #### T SH, CMP, LIPID ####[facility] [address] [place] [address]Dr. Rc Foster Cholesterol [Mass/Vol] 184 mg/dL Normal <=200 [facility] [place] Comment on above: Performed By: #### T SH, CMP, LIPID ####[facility] [address] [place] [id number]. Rc Foster Cholesterol in HDL [Mass/Vol] 42 mg/dL Normal 40-60 [facility] Comment on above: Performed By: #### T SH, CMP, LIPID ####[facility] [address] [place] [id number]. Siribreanna Foster Cholesterol in LDL [Mass/Vol] 87.0 mg/dL Normal [facility] Comment on above: Performed By: #### T SH, CMP, LIPID ####[facility] [address] [place] [id number]. Siribreanna Foster Cholesterol.total/Ch olesterol in HDL [Mass ratio] 4.4 {ratio} Normal [facility] Comment on above: Performed By: #### T MARY JANE, CMP, LIPID ####[facility] [address] [place] [id number]. Siribreanna Foster HDL NORMAL > or = 60 mg/dl - LO W CARDIOVASCULAR RISK <40 mg/dl - HIGH CARDIOVASCULAR RISK Normal [facility] [place] Comment on above: Performed By: #### T MARY JANE, CMP, LIPID ####[facility] [address] [address]Dr. Rc Foster LDL CALC NORMAL SEE BELOW Normal [facility] Comment on above: Result Comment: <100 mg/dl OPTIMAL 100 - 129 mg/dl NEAR OR ABOVE OPTIMAL 130 - 159 mg/dl BORDERLINE HIGH 160 - 189 mg/dl HIGH >190 mg/dl VERY HIGH Performed By: #### T MARY JANE, CMP, LIPID ####[facility] [address] [place] [id number]. Siribreanna Foster Triglyceride [Mass/Vol] 275 mg/dL Critically high <=150 [facility] Comment on above: Performed By: #### T SH, CMP, LIPID ####[facility] [address] [place] [id number]. Rc Foster VLDL CALC 55.0 mg/dL Normal [facility] Comment on above: Performed By: #### T SH, CMP, LIPID ####[facility] [address] [address]Dr. Rc Foster PROF 14(COMP METB)on 022 Albumin [Mass/Vol] 4.0 g/dL Normal 3.4-5.0 [facility] Comment on above: Performed By: #### T SH, CMP, LIPID ####[facility] [address] [address]Dr. Rc Foster Albumin/Globulin [Mass ratio] 1.1 {ratio} Normal [facility] [place] Comment on above: Performed By: #### T SH, CMP, LIPID ####[facility] [address] [address]Dr. Rc Foster ALP [Catalytic activity/Vol] 71 U/L Normal 46-116 [facility] [place] Comment on above: Performed By: #### T SH, CMP, LIPID ####[facility] [address] [place], [place] [address]Dr. Rc Foster ALT [Catalytic activity/Vol] 29 U/L Normal 14-59 [facility] Comment on above: Performed By: #### T SH, CMP, LIPID ####[facility] [address] [place], [place] [address]Dr. Rc Foster Anion gap [Moles/Vol] 13.2 mmol/L Normal [facility] [place] Comment on above: Performed By: #### T SH, CMP, LIPID ####[facility] [address] [place], [place] [address]Dr. Rc Foster AST [Catalytic activity/Vol] 17 U/L Normal 15-37 [facility] Comment on above: Performed By: #### T SH, CMP, LIPID ####[facility] [address] [place], [place] [address]Dr. Rc Foster Bilirubin [Mass/Vol] 0.6 mg/dL Normal 0.2-1.0 [facility] Comment on above: Performed By: #### T SH, CMP, LIPID ####[facility] [address] [place], [place] [address]Dr. Rc Foster Calcium [Mass/Vol] 9.0 mg/dL Normal 8.5-10.1 [facility] Comment on above: Performed By: #### T SH, CMP, LIPID ####[facility] [address] [address]Dr. Rc Foster Chloride [Moles/Vol] 102 mmol/L Normal 98-107 [facility] [place] Comment on above: Performed By: #### T SH, CMP, LIPID ####[facility] [address] [address]Dr. Rc Foster CO2 [Moles/Vol] 27.3 mmol/L Normal 21.0-32.0 [facility] Comment on above: Performed By: #### T SH, CMP, LIPID ####[facility] [address] [address]Dr. Rc Foster Creatinine [Mass/Vol] 1.00 mg/dL Normal 0.55-1.02 [facility] [place] Comment on above: Performed By: #### T SH, CMP, LIPID ####[facility] [address] [place], [place] [address]Dr. Rc Foster EGFR-AF ERITREAN >60 Normal >=60 [facility] Comment on above: Performed By: #### T SH, CMP, LIPID ####[facility] [address] [place], [place] [address]Dr. Rc Foster EGFR-NON AF ERITREAN 56 mL/min/1.73m2 Critically low >=60 [facility] [place] Comment on above: Performed By: #### T SH, CMP, LIPID ####[facility] [address] [address]Dr. Rc Foster Globulin (S) [Mass/Vol] 3.5 g/dL Normal [facility] [place] Comment on above: Performed By: #### T SH, CMP, LIPID ####[facility] [address] [address]Dr. Rc Foster Glucose [Mass/Vol] 159 mg/dL Critically high 74-106 [facility] Comment on above: Performed By: #### T SH, CMP, LIPID ####[facility] [address] [address]Dr. Rc Foster Potassium [Moles/Vol] 4.5 mmol/L Normal 3.5-5.1 [facility] Comment on above: Performed By: #### T MARY JANE CMP, LIPID ####[facility] [address] [address]Dr. Rc Foster Protein [Mass/Vol] 7.5 g/dL Normal 6.4-8.2 [facility] Comment on above: Performed By: #### T MARY JANE CMP, LIPID ####[facility] [address] [place] [id number]. Rc Foster Sodium [Moles/Vol] 138 mmol/L Normal 136-145 [facility] Comment on above: Performed By: #### T MARY JANE CMP, LIPID ####[facility] [address] [address]Dr. Rc Foster Urea nitrogen [Mass/Vol] 23.0 mg/dL Critically high 7.0-18.0 [facility] [place] Comment on above: Performed By: #### T MARY JANE CMP, LIPID ####[facility] [address] [place] [id number]. Rc Foster Urea nitrogen/Creatinine [Mass ratio] 23.0 mg/mg Normal [facility] Comment on above: Performed By: #### T MARY JANE CMP, LIPID ####[facility] [address] [place] [id number]. Rc Foster TSHon 03-30-2022 TSH 2.807 uIU/mL Normal 0.358-3.740 [facility] Comment on above: Performed By: #### T MARY JANE, CMP, LIPID ####[facility] [address] [place] [id number]. Rc Foster US THYROIDon 03-30-2022 US THYROID [...] : DR ROBERT VILLASENOR D.O. Admission #: [id number] Family : Order #: [id number] CLICK HERE TO VIEW EXAM RADIOLOGY REPORT [...] No Treatments None Family Cancers None LOCATION: [facility] [place] BREAST COMPOSITION: Scattered areas fibroglandular density. FINDINGS: [...] M.D. on 03/23/2022 at 11:59 Normal [facility] CBC AUTO DIFFon 11-27-2021 BASO # 0.0 103/ul Normal 0.0-0.1 [facility] [place] Comment on above: Performed By: #### C BC #### [facility] [address] [address] [address] Rc Foster Basophils/100 WBC (Bld) 0.7 % Normal 0.2-2.0 [facility] [place] Comment on above: Performed By: #### C BC #### [facility] [address] [address] [address] Rc Foster EO # 0.6 103/ul Normal 0.0-0.7 [facility] [place] Comment on above: Performed By: #### C BC #### [facility] [address] [address] [address] Rc Foster Eosinophils/100 WBC (Bld) 10.3 % Critically high 0.9-7.0 [facility] [place] Comment on above: Performed By: #### C BC #### [facility] [address] [address] [address] Rc Foster Erythrocyte distribution width (RBC) [Ratio] 12.4 % Normal 11.0-15.0 [facility] [place] Comment on above: Performed By: #### C BC #### [facility] [address] [address] [address] Rc Foster Hematocrit (Bld) [Volume fraction] 41.2 % Normal 36.0-48.0 [facility] [place] Comment on above: Performed By: #### C BC #### [facility] [address] [address] [address] Rc Foster Hemoglobin (Bld) [Mass/Vol] 13.4 g/dL Normal 12.0-16.0 [facility] [place] Comment on above: Performed By: #### C BC #### [facility] [address] [address] [address] Rc Foster IG # 0.01 10e3/ul Normal 0.00-0.03 [facility] Comment on above: Performed By: #### C BC #### [facility] [address] [place] [address] Dr. Rc Foster IG % 0.2 % Normal 0.0-0.5 [facility] [place] Comment on above: Performed By: #### C BC #### [facility] [address] [place] [address] Dr. Rc Foster LYMPH # 2.3 103/ul Normal 1.2-3.8 [facility] [place] Comment on above: Performed By: #### C BC #### [facility] [address] [place] [address] Dr. Rc Foster Lymphocytes/100 WBC (Bld) 40.6 % Normal 20.5-60.0 [facility] [place] Comment on above: Performed By: #### C BC #### [facility] [address] [place] [address] Dr. Rc Foster MANUAL DIFF REQ NO Normal [facility] Comment on above: Performed By: #### C BC #### [facility] [address] [place] [address] Dr. Rc Foster MCH (RBC) [Entitic mass] 28.8 pg Normal 26.7-34.0 [facility] [place] Comment on above: Performed By: #### C BC #### [facility] [address] [place] [address] Dr. Rc Foster MCHC (RBC) [Mass/Vol] 32.5 g/dL Normal 29.9-35.2 [facility] [place] Comment on above: Performed By: #### C BC #### [facility] [address] [place] [address] Dr. Rc Foster MCV (RBC) [Entitic vol] 88.6 fL Normal 81.0-99.0 [facility] [place] Comment on above: Performed By: #### C BC #### [facility] [address] [place] [address] Dr. Rc Foster MONO # 0.4 103/ul Normal 0.3-0.8 [facility] [place] Comment on above: Performed By: #### C BC #### [facility] [address] [place] [address] Dr. Rc Foster Monocytes/100 WBC (Bld) 7.6 % Normal 1.7-12.0 [facility] [place] Comment on above: Performed By: #### C BC #### [facility] [address] [address] [address] Rc Foster NEUT # 2.3 103/ul Normal 1.4-6.5 [facility] [place] Comment on above: Performed By: #### C BC #### [facility] [address] [place] [address] Dr. Rc Foster Neutrophils/100 WBC (Bld) 40.6 % Critically low 43.0-75.0 [facility] [place] Comment on above: Performed By: #### C BC #### [facility] [address] [place] [address] Dr. Rc Foster Platelet mean volume (Bld) [Entitic vol] 9.6 fL Normal 9.5-13.5 [facility] [place] Comment on above: Performed By: #### C BC #### [facility] [address] [place] [address] Dr. Rc Foster PLT 194 103/ul Normal 150-450 [facility] [place] Comment on above: Performed By: #### C BC #### [facility] [address] [place] [address] Dr. Rc Foster RBC 4.65 106/ul Normal 4.20-5.40 [facility] Comment on above: Performed By: #### C BC #### [facility] [address] [place] [address] Dr. Rc Foster WBC 5.5 103/ul Normal 4.0-11.0 [facility] [place] Comment on above: Performed By: #### C BC #### [facility] [address] [place] [address] Dr. Rc Foster GLYCOHEMOGLOBIN A1Con 2021 ADA RECOMMENDATION SEE BELOW Normal [facility] Comment on above: Result Comment: ADA RECOMMENDED LIMIT 4.0 - 6.0 ADA THERAPEUTIC TARGET < 7.0 ACTION SUGGESTED > 7.0 Performed By: #### A 1C #### [facility] [address] [address] [address] Rc Foster Glucose [Mass/Vol] 131 mg/dL Normal [facility] Comment on above: Performed By: #### A 1C #### [facility] [address] [address] [address] Rc Foster HbA1c (Bld) [Mass fraction] 6.2 % Normal 4.5-6.2 [facility] [place] Comment on above: Performed By: #### A 1C #### [facility] [address] [address] [address] Rc Foster PROF CHEM 8 (BAS METB)on Anion gap [Moles/Vol] 15.2 mmol/L Normal [facility] [place] Comment on above: Performed By: #### T SH, BMP #### [facility] [address] [place] [address] Dr. Rc Foster Calcium [Mass/Vol] 8.5 mg/dL Normal 8.5-10.1 [facility] Comment on above: Performed By: #### T MARY JANE, BMP #### [facility] [address] [address] [address] Rc Foster Chloride [Moles/Vol] 100 mmol/L Normal 98-107 [facility] [place] Comment on above: Performed By: #### T SH, BMP #### [facility] [address] [address] [address] Rc Foster CO2 [Moles/Vol] 26.6 mmol/L Normal 21.0-32.0 [facility] Comment on above: Performed By: #### T SH, BMP #### [facility] [address] [address] [address] Rc Foster Creatinine [Mass/Vol] 1.15 mg/dL Critically high 0.55-1.02 [facility] [place] Comment on above: Performed By: #### T SH, BMP #### [facility] [address] [address] [address] Rc Foster EGFR-AF ERITREAN 58 mL/min/1.73m2 Critically low >=60 [facility] [place] Comment on above: Performed By: #### T SH, BMP #### [facility] [address] [address] [address] Rc Foster EGFR-NON AF ERITREAN 48 mL/min/1.73m2 Critically low >=60 [facility] [place] Comment on above: Performed By: #### T SH, BMP #### [facility] [address] [address] [address] Rc Foster Glucose [Mass/Vol] 211 mg/dL Critically high 74-106 [facility] Comment on above: Performed By: #### T SH, BMP #### [facility] [address] [place] [address] Dr. Rc Foster Potassium [Moles/Vol] 4.8 mmol/L Normal 3.5-5.1 [facility] [place] Comment on above: Performed By: #### T SH, BMP #### [facility] [address] [place] [address] Dr. Rc Foster Sodium [Moles/Vol] 137 mmol/L Normal 136-145 [facility] Comment on above: Performed By: #### T SH, BMP #### [facility] [address] [place] [address] Dr. Rc Foster Urea nitrogen [Mass/Vol] 33.0 mg/dL Critically high 7.0-18.0 [facility] [place] Comment on above: Performed By: #### T SH, BMP #### [facility] [address] [place] [address] Dr. Rc Foster Urea nitrogen/Creatinine [Mass ratio] 28.7 mg/mg Normal [facility] Comment on above: Performed By: #### T SH, BMP #### [facility] [address] [place] [address] Dr. Rc Foster TSHon 11-27-2021 TSH 0.744 uIU/mL Normal 0.358-3.740 [facility] Comment on above: Performed By: #### T SH, BMP #### [facility] [address] [place] [address] Dr. Rc Foster SYMPTOMATIC COVID-19 ANTIGEN on 10-28-2021 EUA Statement SEE BELOW Normal [facility] Comment on above: Result Comment: This [...] revoked sooner. Performed By: #### C VDAGS ####[facility] [address] [address]Dr. Rc Foster SARS-CoV-2 (COVID-19) RNA YARED+probe Ql (Unsp spec) Negative Normal NEGATIVE [facility] [place] Comment on above: Performed By: #### C VDAGS ####[facility] [address] [place] [address]Dr. Rc Foster GLYCOHEMOGLOBIN A1Con 2021 ADA RECOMMENDATION SEE BELOW Normal [facility] Comment on above: Result Comment: ADA RECOMMENDED LIMIT 4.0 - 6.0 ADA THERAPEUTIC TARGET < 7.0 ACTION SUGGESTED > 7.0 Performed By: #### A 1C #### [facility] [address] [place] [address] Dr. Rc Foster Glucose [Mass/Vol] 128 mg/dL Normal [facility] Comment on above: Performed By: #### A 1C #### [facility] [address] [place] [address] Dr. Rc Foster HbA1c (Bld) [Mass fraction] 6.1 % Normal 4.5-6.2 [facility] Comment on above: Performed By: #### A 1C #### [facility] [address] [place] [address] Dr. Rc Foster Discharge CCD Assessmenton 0 09-06-2020 Discharge CCD Assessment [facility] Patient: CARROLL FUENTES [address] [place], [place] [id number] MR#: [id number] DISCHARGE CCD ASSESSMENT : 58 Service Date: 09/06/20 1018 Discharge CCD Assessment Assessment Patient discharged home to continue exercises, pain medication, and wound care Electronically Signed eSign Date and Time Melyssa Flores 09/06/20 1019 Tera Hernandez MD Normal [facility] GLUCOSE METERon 09-06-2020 Glucose [Mass/Vol] 126 mg/dL High 70-99 [facility] Comment on above: Order Comment: CONSE RVATION Result Comment: Fast ing GLUCOSE reference range has been updated per (ADA) [place] [employer]'s recommendation. 07/18/2018 Performed By: #### L 500.81644 ####Test performed at: [place] [address] Glucose [Mass/Vol] 205 mg/dL High 70-99 [facility] Comment on above: Order Comment: CONSE RVATION Result Comment: Fast ing GLUCOSE reference range has been updated per (ADA) [place] [employer]'s recommendation. 07/18/2018 Insulin per sl scale Performed By: #### L 500.40564 #### Test performed at: [place] [address] Internal Med Progress Noteon 09-06-2020 Internal Med Progress Note [facility] Patient: CARROLL FUENTES [address] [place], [place] [id number] MR#: [id number] PROGRESS NOTE - Internal Medicine : 58 [...] RES, Katarzyna MD 09/06/20 1134 Normal [facility] Orthopedic Progress Noteon 0 09-06-2020 Orthopedic Progress Note [facility] Patient: CARROLL FUENTES [facility] [place] [address] MR#: [id number] PROGRESS NOTE - Orthopedic : 58 Service [...] 09/06/20 1022 Tera Hernandez MD Normal [facility] Anesthesia Noteon 09-05-2020 Anesthesia Note [facility] Patient: CARROLL FUENTES [address] [place], [place] [id number] MR#: [id number] ANESTHESIA NOTE : Service Date: 09/05/20 0812 [...] eSign Date and Time Krystian Akers [employer]PLICATION SOFTWARE DEVELOPER[employer]UING MACHINE 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 09/05/20 0813 Chu Glez MD Normal [facility] BASIC MET PANELon 09-05-2020 Anion gap [Moles/Vol] 12 mmol/L Normal 6-18 [facility] Comment on above: Performed By: #### L 500.35799, L500.45411 #### Test performed at: [address] [address] Calcium [Mass/Vol] 8.7 mg/dL Normal 8.5-10.1 [facility] Comment on above: Performed By: #### L 500.30774, L500.15218 #### Test performed at: [place] [address] [place] [address] Chloride [Moles/Vol] 101 mmol/L Normal 98-107 [facility] Comment on above: Performed By: #### L 500.84390, L500.98796 #### Test performed at: [address] [address] CO2 [Moles/Vol] 25 mmol/L Normal 21-32 [facility] Comment on above: Performed By: #### L 500.88804, L500.49551 #### Test performed at: [address] [address] Creatinine [Mass/Vol] 1.020 mg/dL Normal 0.550-1.020 [facility] Comment on above: Performed By: #### L 500.14995, L500.90293 #### Test performed at: [address] [address] Glucose [Mass/Vol] 264 mg/dL High 70-99 [facility] Comment on above: Result Comment: Fast ing GLUCOSE reference range has been updated per (ADA) [place] [employer]'s recommendation. 07/18/2018 Performed By: #### L 500.66181, L500.16067 #### Test performed at: [address] [address] OSM 289 mosm/kg Normal 270-300 [facility] Comment on above: Performed By: #### L 500.59481, L500.04875 #### Test performed at: [address] [address] Potassium [Moles/Vol] 4.5 mmol/L Normal 3.5-5.1 [facility] Comment on above: Performed By: #### L 500.78718, L500.15692 #### Test performed at: [address] [address] Sodium [Moles/Vol] 134 mmol/L Low 136-145 [facility] Comment on above: Performed By: #### L 500.27535, L500.83494 #### Test performed at: [address] [address] Urea nitrogen [Mass/Vol] 17 mg/dL Normal 7-18 [facility] Comment on above: Performed By: #### L 500.99000, L500.65349 #### Test performed at: [address] [address] GFR ESTIMATEon 09-05-2020 IF AMER > 60 Normal > 60 [facility] Comment on above: Result Comment: eGFR (Estimated GFR) Units of measure:mL/min/1.73 meters sq. *CALCULATION REVISED 02/11/2015;IDMS-traceable MDRD equation eGFR is derived from the reexpressed MDRD Study equation using the following parameters: serum creatinine, age, gender and race. An eGFR<60 mL/min/1.73m2 for >3 months is consistent with chronic kidney disease. Refer to KDOQI guidelines for clinical interpretation. Performed By: #### L 500.86857, L500.82221 #### Test performed at: [address] [address] IF non-AFR AMER 55 Low > 60 [facility] Comment on above: Performed By: #### L 500.85765, L500.35235 #### Test performed at: [address] [address] GLUCOSE METERon 09-05-2020 Glucose [Mass/Vol] 177 mg/dL High 70-99 [facility] Comment on above: Order Comment: CONSE RVATION Result Comment: Fast ing GLUCOSE reference range has been updated per (ADA) [place] [employer]'s recommendation. 07/18/2018 Performed By: #### L 500.22647 #### Test performed at: [address] [address] Glucose [Mass/Vol] 310 mg/dL High 70-99 [facility] Comment on above: Result Comment: Fast ing GLUCOSE reference range has been updated per (ADA) [place] [employer]'s recommendation. 07/18/2018 Insulin per sl scale Performed By: #### L 500.53336 ####Test performed at: [address] [address] Glucose [Mass/Vol] 281 mg/dL High 70-99 [facility] Comment on above: Result Comment: Fast ing GLUCOSE reference range has been updated per (ADA) [place] [employer]'s recommendation. 07/18/2018 Insulin per sl scale Performed By: #### L 500.80913 #### Test performed at: [place] [address] Glucose [Mass/Vol] 105 mg/dL High 70-99 [facility] Comment on above: Result Comment: Fast ing GLUCOSE reference range has been updated per (ADA) [place] [employer]'s recommendation. 07/18/2018 Performed By: #### L 500.14182 #### Test performed at: [place] [address] HGB AND HCTon 09-05-2020 Hematocrit (Bld) [Volume fraction] 37.5 % Normal 36.0-48.0 [facility] Comment on above: Performed By: #### L 200.11330 #### Test performed at: [place] [address] Hemoglobin (Bld) [Mass/Vol] 12.5 g/dL Normal 12.0-15.0 [facility] Comment on above: Performed By: #### L 200.59045 #### Test performed at: [place] [address] Internal Med Progress Noteon 09-05-2020 Internal Med Progress Note [facility] Patient: CARROLL FUENTES [address] [place] [address] MR#: [id number] PROGRESS NOTE - Internal Medicine : 58 [...] Disc (more content not included)... Normal [facility] OT Therapy Recommendationson 09-05-2020 OT Therapy Recommendations [facility] Patient: CARROLL FUENTES [address] [place] [address] MR#: [id number] OT THERAPY RECOMMENDATIONS : 58 Service Date: 09/05/20 151 Therapy Recommendations Therapy Recommendations Recommendations OT evaluation completed. OT recommends HOME with FAmily assist. No further acute OT needs are indicated at this time. Electronically Signed eSign Date and Time Trupti Rojas OT 09/05/20 1512 Normal [facility] Orthopedic Progress Noteon 0 09-05-2020 Orthopedic Progress Note [facility] Patient: CARROLL FUENTES [address] [place], [place] [id number] MR#: [id number] PROGRESS NOTE - Orthopedic : 58 Service [...] 09/05/20 1429 Tera Hernandez MD Normal [facility] PT Therapy Recommendationson 09-05-2020 PT Therapy Recommendations [facility] Patient: CARROLL FUENTES [address] [place] [address] MR#: [id number] PT THERAPY RECOMMENDATIONS : 58 Service Date: 09/05/20 0914 Therapy Recommendations Therapy Recommendations Recommendations PT eval complete. No further acute PT needs. Recommend d/c home /c family assist. Electronically Signed eSign Date and Time Tiffanie Bashir PT 09/05/20 0914 Normal [facility] z OT Inpatient Discharge Not juan 09-05-2020 z OT Inpatient Discharge Note [facility] Patient: CARROLL FUENTES [address] [place] [address] MR#: [id number] OT INPATIENT DISCHARGE NOTE : 58 Service [...] Trupti Rojas OT 09/05/20 1534 Normal [facility] z OT Inpatient Evaluationon 09-05-2020 z OT Inpatient Evaluation [facility] Patient: CARROLL FUENTES [address] [place] [address] MR#: [id number] OT INPATIENT EVALUATION : 58 Inpatient OT HPI Date of Service 09/05/20 Time In: 1401 Time Out: 1412 Total Treatment Time (Mins) 11 Visit Reason LATERAL RECESS STENOSIS W/ RADICULOPATHY Surgery Type/Date s/p L L4-5 LAmi, foraminotomy, decompression on 09.04.20/ Lumbar spine precautions Referral Date 09/04/20 Tx Diagnosis: LOW BACK PAIN Insurance Name [employer] [facility] Hospital Course Pt is a left [...] Nader (more content not included)... Normal [facility] z PT Inpatient Discharge Not juan 09-05-2020 z PT Inpatient Discharge Note [facility] Patient: CARROLL FUENTES [facility] [place] [address] MR#: [id number] PT INPATIENT DISCHARGE NOTE : 58 Service [...] Tiffanie Bashir PT 09/05/20 1139 Normal [facility] z PT Inpatient Evaluationon 09-05-2020 z PT Inpatient Evaluation [facility] Patient: CARROLL FUENTES [address] [address] MR#: [id number] PT INPATIENT EVALUATION : 58 Service Date: 09/05/20 0928 Inpatient PT HPI Date of Service 09/05/20 Time In: 0845 Time Out: 0907 Total Treatment Time (Mins) 22 Room Number 624 Visit Reason LATERAL RECESS STENOSIS W/ RADICULOPATHY Surgery Type: L L4-5 lami, foraminotomy, decompression Surgery Date: 09/04/20 Referral Date 09/04/20 Tx Diagnosis: LOW BACK PAIN Insurance Name [facility] POS [facility] Hospital Course 60 y.o female at [facility] for above sx d/t lateral recess stenosis [...] posture. 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 Pt agreeable to use of her [...] and Time KrystenEda PT 09/05/20 1502 Normal [facility] GLUCOSE METERon 09-04-2020 Glucose [Mass/Vol] 94 mg/dL Normal 70-99 [facility] Comment on above: Result Comment: Fast ing GLUCOSE reference range has been updated per (ADA) [place] [employer]'s recommendation. 07/18/2018 Performed By: #### L 500.30884 ####Test performed at: [place] [address] Internal Medicine Consultati onon 09-04-2020 Internal Medicine Consultation [facility] Patient: CARROLL FUENTES [address] [place] [address] MR#: [id number] CONSULTATION - Internal Medicine : 58 Service [...] Systems (more content not included)... Normal [facility] OPERATIVE REPORTon OPERATIVE REPORT NAME: CARROLL FUENTES MR#: [id number] SURGEON: Tera Hernandez MD DATE OF SURGERY: [...] there were no complications. TERA HERNANDEZ MD [facility] PT NAME: CARROLL FUENTES MR#: [id number] [address] [place] [address] ACCT: [id number] : 58 OPERATIVE REPORT JFS/[id number] E/S: Tera Hernandez MD 09/18/20 1207 Electronically Signed [facility] PT NAME: CARROLL FUENTES MR#: [id number] [address] [place], [place] [address] ACCT: [id number] : 58 OPERATIVE REPORT Normal [facility] Primary Residenton 1 Primary Resident [facility] Pt Name: CARROLL FUENTES MR#: [id number] [address] [place] [address] ACCT: [id number] [place] [id number] : 58 Service Date: 09/04/20 1603 Primary Resident/Call Primary Resident: [id number] [place] After Hours Call: [phone] Red Team Electronically Signed eSign Date and Time Ana Flanagan RES 09/16/20 1521 Normal [facility] LUMBAR SPINE 2 OR 3 VIEWSon 09-03-2020 LUMBAR SPINE 2 OR 3 VIEWS STUDY: LUMBAR SPINE 2 OR 3 VIEWS; 09/04/2020 2:57 pm INDICATION: LEFT L4-L5 LAMINECTOMY,FORAMINOTOM Y,DECOMPRESSION. COMPARISON: None. ACCESSION NUMBER(S): [id number] ORDERING CLINICIAN: Tera Hernandez FINDINGS: Intraoperative fluoroscopy of the lumbar spine demonstrates surgical instruments posterior to L5. IMPRESSION: As above Normal [facility] CHEST PA/AP & LATERALon CHEST PA/AP & LATERAL STUDY: CHEST PA/AP LATERAL; 08/25/2020 11:00 am INDICATION: SOB/PAT. COMPARISON: None. ACCESSION NUMBER(S): [id number] ORDERING CLINICIAN: Madelyn Leone FINDINGS: The lungs are clear without pleural effusion. Normal heart size, mediastinum, elzbieta, and pulmonary vasculature. IMPRESSION: No active disease in the chest. Normal [facility] CONSULTATION REPORTon 2020 CONSULTATION REPORT NAME: CARROLL FUENTES MR#: [id number] [employer] SYSTEM[employer] ARCHITECT: Madelyn Leone MD DATE OF CONSULTATION: 08/25/2020 [...] pulse ox is 98% on room air. [facility] PT NAME: CARROLL FUENTES MR#: [id number] [address] [place] [address] ACCT: [id number] : 58 CONSULTATION HEENT: Atraumatic head. Pupils [...] we are getting the results from her media sales consultant in [place]. IMPRESSION: 1. Preop clearance for L4-L5 disk [...] courtesy of this consultation. MADELYN LEONE MD MS/MODL/[id number] E/S: Madelyn Leone MD 08/26/20 1750 Electronically Signed [facility] PT NAME: CARROLL FUENTES MR#: [id number] [address] [place] [address] ACCT: [id number] : 58 CONSULTATION Normal [facility] LUMB SP COMP W FLEX/EXT 6 VW S>on 08-08-2020 LUMB SP COMP W FLEX/EXT 6 VWS> STUDY: LUMB SP COMP W FLEX/EXT 6 VWS>; 08/08/2020 9:43 am INDICATION: BACK PAIN. COMPARISON: No available comparisons. ACCESSION NUMBER(S): [id number] ORDERING CLINICIAN: Tera Hernandez TECHNIQUE: 6 views [...] level. No evidence of instability.. Normal [facility] XR SHLDR >/=3V AP/RUSH AP/OTH [...] on Jul 03 2018 10:17AM EST [id number] [facility] ANES Holly 06-20-2018 ANES POST HNO ID: [id number] Author: Rohit Velarde Service: Anesthesiology Author Type: [...] 20, 2018 TIME: 2:38 PM PAGER/CONTACT #: [facility] ANES PREOPon 06-20-2018 ANES PREOP HNO ID: [id number] Author: Rohit Velarde Service: Anesthesiology Author Type: [...] Without Long-Term Current Use of Insulin (Hcc) Stephnaie (Obstructive Sleep Apnea) Mixed Hyperlipidemia PAST MEDICAL [...] June 20, 2018 TIME: 9:35 AM CSN: [id number] [facility] BRIEF OP NOTon 06-20-2018 BRIEF OP NOT HNO ID: [id number] Author: Kusum Francisco Service: Orthopaedic Surgery Author Type: Resident Type: Brief Op Note Filed: 06/20/2018 5:49 PM Note Text: BRIEF OP NOTE LOG ID: [id number] Surgery/Procedure Date: 06/20/2018 Incision/Procedure Start Time: 11:18 AM Incision Close/Procedure End Time: 1:17 PM Surgeon(s)/Proceduralis t(s) and Environmental Solutions Engineer(s): Surgeon(s) and Role: * Jenna Garsia - [...] 20, 2018 TIME: 5:49 PM PAGER/CONTACT #: [facility] CASE MANAGEMon 06-20-2018 CASE MANAGEM HNO ID: [id number] Author: May Herrera (Sw) Service: Care Management Author Type: Scrummaster Type: Care Mgt Progress Note Filed: 06/20/2018 [...] is pcp summary of care sent via [facility] () Nurse to provide discharge instructions. TRANSPORTATION ARRANGEMENTS: Car Spouse ADDITIONAL CONTACT RESOURCES: Needs Prior to Discharge: Ready for Discharge Appointments for Next 45 Days Date Time Provider Location Dept Phone 07/03/2018 10:00 AM CAROLA BAPTISTE AT [phone] 07/03/2018 10:30 AM GABRIEL CANTU) [facility] AT [phone] 07/31/2018 2:15 PM JENNA GARSIA AT [phone] Pt to be discharged home to follow up as above. 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 O.Therapy recommend home. Spouse visiting at bedside and will transport pt home later today.Further discharge needs not anticipated.SW/TCC to follow to assist with plans for discharge. SIGNATURE: DARIO Saini PATIENT NAME: Carroll Fuentes DATE: June 20, 2018 TIME: 5:27 PM PAGER/CONTACT #: [phone] [facility] CONSULTon 06-20-2018 CONSULT HNO ID: [id number] Author: Dulce Green Service: General Internal Medicine [...] Disp: Rfl: 06/19/2018 at 0630 rizatriptan (MAXALT FLAKER TENDER) 10 mg disintegrating tablet DISSOLVE 1 TABLET [...] the care of your patient. Dulce Green APRN.BASKET BOTTOM MACHINE OPERATOR June 20, 2018 4:34 PM Normal [facility] NURSING PROGon 06-20-2018 Protein mass conc HNO ID: [id number] Author: Fela (Rn) FLETCHER Phillips Service: (none) Author Type: Registered Nurse Type: Nursing Progress Note Filed: 06/20/2018 7:39 PM Note Text: Nursing Progress Note Patient Name: Carroll Fuentes [facility] Daily Note: 1545. Care assumed. Pt resting [...] at bedside. 1720. Dr. Meeks and Dulce ANIMAL ANATOMIST at bedside, plan is to stay for [...] note was completed by: Fela Phillips RN [facility] Protein mass conc HNO ID: [id number] Author: Wendy (Rn) FLETCHER Underwood Service: Nursing Author Type: Registered Nurse Type: Nursing Progress Note Filed: 06/20/2018 10:20 AM Note Text: Nursing Progress Note Patient Name: Carroll Fuentes Patient Location: [facility] Daily Note:Right interscalene nerve block with ultrasound guidance with Dr. Velarde and Dr. Marlow at bedside. Patient tolerated procedure well, VSS, will continue to monitor as we wait for OR team. Resting comfortably with no complaints of pain at this time. This note was completed by: Wendy Underwood RN [facility] OPERATIVE NOon 06-20-2018 OPERATIVE NO HNO ID: [id number] Author: Jenna Garsia Service: Orthopaedic Surgery Author Type: Physician Type: Operative Report Filed: 06/20/2018 1:25 PM Note Text: [place] [id number] [place] OPERATIVE REPORT NAME: Carroll Fuentes [facility] #: [id number] DATE: 06/20/2018 (11:18am-1:17pm) AGE: 58 SURGEON 1: Jenna Garsia M.D. SAXOPHONE PLAYER: 1. Augie Coates M.D. 2. Kusum Prasad M.D. 3. Mundo Pablo OPERATION: Right total shoulder arthroplasty, biceps tenodesis. ANESTHESIA: General anesthesia with regional interscalene nerve block for postoperative pain control. PREOPERATIVE DIAGNOSIS: Right shoulder primary glenohumeral osteoarthritis. POSTOPERATIVE DIAGNOSIS: Right shoulder primary glenohumeral osteoarthritis, biceps tendinopathy. OPERATIVE INDICATIONS: The patient is a 58 year oldsbe-vohz-acj right-hand dominant white female who has a [...] rotator interval stitch was then passed in iakeqw-ld-xpbws fashion with a #2 Ticron suture and tied down to close the lateral rotator interval and set the osteotomy superiorly. The two #2 Fiberwire sutures coming out of the bicipital groove were then sequentially passed in a hhmusl-yh-vbklz fashion medial to the horizontal mattress and [...] none COMPLICATIONS: none apparent Jenna Garsia M.D. [facility] PT EDon 06-20-2018 PT ED HNO ID: [id number] Author: Cindy ValenciaRnTyseha Griffin RN Service: (none) Author Type: Registered [...] Signed By: Cindy Griffin RN In Department: [facility] THERAPY NTon 06-20-2018 THERAPY NT HNO ID: [id number] Author: Abi Phillips Service: Occupational Therapy Author Type: Occupational Therapist Type: Therapy (PT/OT/Speech/Resp) Filed: 06/20/2018 4:59 PM Note Text: Occupational Therapy Evaluation SERVICE DATE: 06/20/2018 SERVICE TIME: 1550 to 1640 ROOM: [facility]-523-P Recommended Discharge Disposition: Home Anticipated Discharge [...] daily living (ADL) Interventions Provided: Evaluation;Therapeutic Exercise (52001);Self [facility] Management (68786) $ Evaluation-Low (68462) Billed Units: 1 unit Therapeutic Exercise (27420) Treatment Minutes: 10 1 unit Skilled Intervention(s): Education in Self [facility] Management (03096) Treatment Minutes: 28 2 units Skilled Intervention(s): [...] Environment Patient Lives With: Spouse Assistance Available: traffic maintenance supervisor Number Of Stairs To Bed/Bath: 0 Equipment [...] DATE: June 20, 2018 TIME: 4:54 PM [facility] XR SHOULDER 2V AP/TRUE AP RT on [...] on Jun 20 2018 2:04PM EST [id number] [facility] NURSING PROGon 06-09-2018 Protein mass conc HNO ID: [id number] Author: Ivana (Rn) FLETCHER Heller Service: Nursing [...] 2018 11:10 AM Addendum 06/15/18 EKG IN [facility] FINAL Ivana Heller RN June 15, 2018 4:39 PM Normal [facility] Type and SCR (30D)on 019 ABO/RH(D) Positive Normal [facility] HOSPon 04-28-2018 HOSP Patient:Adalberto Fuentes MRN: Height:5' 2 (1.575 m) Weight:186 lb (84.369 kg) Outpatient Medications as of 06/20/18: calcium phosphate dibas/vit D3 (VITAMIN D, WITH CALCIUM, ORAL) docusate sodium (COLACE) 100 mg capsule aspirin, enteric coated (ECOTRIN LOW STRENGTH) 81 mg EC tablet oxyCODONE-acetaminophen (PERCOCET) 5-325 mg tablet rizatriptan (MAXALT FLAKER TENDER) 10 mg disintegrating tablet mupirocin (BACTROBAN) 2 [...] 36.0 Progress Notes (RADIO CT SCAN [facility]): RT Lillian, Tech 06/07/2018 10:04 AM [...] RT Lillian June 07, 2018 9:54 AM [facility] Vital Signs Date Time Vital Sign Value Performing Clinician Facility 07-25-2024 09:00-0400 Diastolic blood pressure 79 mm[Hg] [facility] 07-25-2024 09:00-0400 Heart rate 66 /min [facility] 07-25-2024 09:00-0400 Respiratory rate 12 /min [facility] 07-25-2024 09:00-0400 Systolic blood pressure 161 mm[Hg] [facility] 07-18-2024 10:47-0400 Body height 154.[address] [facility] 07-18-2024 10:47-0400 Body mass index (BMI) [Ratio] 32.8 kg/m2 [facility] 07-18-2024 10:47-0400 Body weight 78.[address] [facility] 07-18-2024 10:47-0400 Diastolic blood pressure 74 mm[Hg] [facility] 07-18-2024 10:47-0400 Heart rate 68 /min [facility] 07-18-2024 10:47-0400 Respiratory rate 12 /min [facility] 07-18-2024 10:47-0400 Systolic blood pressure 134 mm[Hg] [facility] 07-13-2024 10:11-0400 Body height 154.[address] [facility] 07-13-2024 10:11-0400 Body mass index (BMI) [Ratio] 32.9 kg/m2 [facility] 07-13-2024 10:11-0400 Body weight 79.[address] [facility] 07-13-2024 10:11-0400 Diastolic blood pressure 77 mm[Hg] [facility] 07-13-2024 10:11-0400 Heart rate 65 /min [facility] 07-13-2024 10:11-0400 Respiratory rate 12 /min [facility] 07-13-2024 10:11-0400 Systolic blood pressure 117 mm[Hg] [facility] 07-11-2024 08:30-0400 Body temperature 98.6 [degF] Jose Sharif MD Work Phone: [facility] 07-11-2024 08:30-0400 Diastolic blood pressure 62 mm[Hg] Jose Sharif MD Work Phone: [facility] 07-11-2024 08:30-0400 Heart rate 88 /min Jose Sharif MD Work Phone: [facility] 07-11-2024 08:30-0400 Respiratory rate 16 /min Jose Sharif MD Work Phone: [facility] 07-11-2024 08:30-0400 SaO2% (BldA) [Mass fraction] 98 % Jose Sharif MD Work Phone: [facility] 07-11-2024 08:30-0400 Systolic blood pressure 117 mm[Hg] Jose Sharif MD Work Phone: [facility] 07-06-2024 20:16-0400 Body height 154.9 cm Jose Sharif MD Work Phone: [facility] 07-06-2024 20:16-0400 Body mass index (BMI) [Ratio] 33.07 kg/m2 Jose Sharif [facility] 07-06-2024 20:16-0400 Body weight 79.38 kg Jose Sharif MD [facility] Phone[facility] 07-04-2024 15:04-0400 Body height 154.[address] [facility] 07-04-2024 15:04-0400 Body mass index (BMI) [Ratio] 32.9 kg/m2 [facility] 07-04-2024 15:04-0400 Body weight 79.[address] [facility] 07-04-2024 15:04-0400 Diastolic blood pressure 79 mm[Hg] [facility] 07-04-2024 15:04-0400 Heart rate 69 /min [facility] 07-04-2024 15:04-0400 Respiratory rate 12 /min [facility] 07-04-2024 15:04-0400 Systolic blood pressure 177 mm[Hg] [facility] 06-25-2024 10:11-0500 Body temperature 97.3 [degF] [facility] 06-25-2024 10:11-0500 Diastolic blood pressure 76 mm[Hg] [facility] 06-25-2024 10:11-0500 Heart rate 54 /min [facility] 06-25-2024 10:11-0500 Respiratory rate 16 /min [facility] 06-25-2024 10:11-0500 SaO2% (BldA) [Mass fraction] 98 % [facility] 06-25-2024 10:11-0500 Systolic blood pressure 119 mm[Hg] [facility] 06-25-2024 10:07-0500 Body height 154.[address] [facility] 06-25-2024 10:07-0500 Body mass index (BMI) [Ratio] 32.9 kg/m2 [facility] 06-25-2024 10:07-0500 Body weight 79.[address] [facility] 02-24-2024 14:13-0400 Body height 154.[address] [facility] 02-24-2024 14:13-0400 Body mass index (BMI) [Ratio] 33.1 kg/m2 [facility] 02-24-2024 14:13-0400 Body temperature 96 [degF] [facility] 02-24-2024 14:13-0400 Body weight 79.[address] [facility] 02-24-2024 14:13-0400 Diastolic blood pressure 84 mm[Hg] [facility] 02-24-2024 14:13-0400 Heart rate 66 /min [facility] 02-24-2024 14:13-0400 Systolic blood pressure 159 mm[Hg] [facility] 12-20-2023 15:35-0400 Body height 154.[address] [facility] 12-20-2023 15:35-0400 Body mass index (BMI) [Ratio] 33.8 kg/m2 [facility] 12-20-2023 15:35-0400 Body weight 81.[address] [facility] 12-20-2023 15:35-0400 Diastolic blood pressure 80 mm[Hg] [facility] [facility] 12-20-2023 15:35-0400 Heart rate 78 /min [facility] 12-20-2023 15:35-0400 Respiratory rate 12 /min [facility] 12-20-2023 15:35-0400 Systolic blood pressure 134 mm[Hg] [facility] 04-29-2023 09:00-0500 Body height 154.94 cm Robert Ball Other [facility] Other 04-29-2023 09:00-0500 Body mass index (BMI) [Ratio] 33.14 kg/m2 Robert Ball Other [facility] Other 04-29-2023 09:00-0500 Body weight 79.56 kg Robert Ball Other [facility] Other 04-29-2023 09:00-0500 Diastolic blood pressure 89 mm[Hg] Robert Ball Other [facility] Other 04-29-2023 09:00-0500 Respiratory rate 12 /min Robert Ball Other [facility] Other 04-29-2023 09:00-0500 Systolic blood pressure 155 mm[Hg] Robert Ball Other [facility] Other 12-20-2022 13:45-0400 Body height 154.94 cm Robert Ball Other [facility] Other 12-20-2022 13:45-0400 Body mass index (BMI) [Ratio] 34.12 kg/m2 Robert Ball Other [facility] Other 12-20-2022 13:45-0400 Body weight 81.92 kg Robert Ball Other [facility] Other 12-20-2022 13:45-0400 Diastolic blood pressure 96 mm[Hg] Robert Ball Other [facility] Other 12-20-2022 13:45-0400 Respiratory rate 12 /min Robert Ball Other [facility] Other 12-20-2022 13:45-0400 Systolic blood pressure 179 mm[Hg] Robert Ball Other [facility] Other 08-04-2022 09:45-0400 Body height 154.94 cm Robert Ball Other [facility] Other 08-04-2022 09:45-0400 Body mass index (BMI) [Ratio] 33.33 kg/m2 Robert Ball Other [facility] Other 08-04-2022 09:45-0400 Body weight 80.02 kg Robert Ball Other [facility] Other 08-04-2022 09:45-0400 Diastolic blood pressure 77 mm[Hg] Robert Ball Other [facility] Other 08-04-2022 09:45-0400 Respiratory rate 12 /min Robert Ball Other [facility] Other 08-04-2022 09:45-0400 Systolic blood pressure 128 mm[Hg] Robert Ball Other [employer] Other Encounters Encounter Date Encounter Type Care Provider Facility Start: 07-25-2024 End: 07-25-2024 ambulatory [facility] Work Phone: Start: 07-25-2024 End: 07-25-2024 Patient encounter procedure [facility] Work Phone: Start: 07-18-2024 End: 07-18-2024 ambulatory [facility] Work Phone: Start: 07-18-2024 End: 07-18-2024 Patient encounter procedure [facility] Work Phone: Start: 07-18-2024 Non-patient / Non-visit [facility] Work Phone: Start: 07-13-2024 End: 07-13-2024 ambulatory [facility] Work Phone: Start: 07-13-2024 End: 07-13-2024 Patient encounter procedure [facility] Work Phone: Start: 07-12-2024 Non-patient / Non-visit [facility] Work Phone: Start: 07-11-2024 Non-patient / Non-visit [facility] Work Phone: Start: 07-06-2024 End: 07-11-2024 Evaluation and management of inpatient Jose Sharif MD Work Phone: [facility] [[email or web address] Orthopedics 7K Start: 07-04-2024 End: 07-04-2024 ambulatory [facility] Work Phone: Start: 07-04-2024 End: 07-04-2024 Encounter for other preprocedural examination [facility] Start: 07-04-2024 End: 07-04-2024 Patient encounter procedure [facility] Work Phone: Start: 06-27-2024 Non-patient / Non-visit [facility] Work Phone: Start: 06-25-2024 End: 06-25-2024 ambulatory [facility] Work Phone: Start: 06-25-2024 End: 06-25-2024 Patient encounter procedure [facility] Work Phone: Start: 06-21-2024 ambulatory [facility] Start: 06-01-2024 Non-patient / Non-visit [facility] Work Phone: Start: 05-31-2024 Non-patient / Non-visit [facility] Work Phone: Start: 04-09-2024 End: 04-09-2024 ambulatory Miriam Barron MD Facility: [facility] Start: 02-24-2024 End: 02-24-2024 ambulatory [facility] Work Phone: Start: 02-24-2024 End: 02-24-2024 Patient encounter procedure [facility] Work Phone: Start: 02-22-2024 Non-patient / Non-visit [facility] Work Phone: Start: 12-27-2023 Non-patient / Non-visit [facility] Work Phone: Start: 12-20-2023 Patient encounter status [facility] Start: 12-20-2023 End: 12-20-2023 ambulatory [facility] Work Phone: Start: 12-20-2023 End: 12-20-2023 Patient encounter procedure [facility] Work Phone: Start: 09-26-2023 End: 09-26-2023 ambulatory Miriam Barron MD Facility:[facility] Start: 08-15-2023 End: 08-15-2023 ambulatory Miriam Barron MD Facility:[facility] Start: 08-08-2023 End: 08-08-2023 ambulatory Miriam Barron MD Facility:[facility] Start: 06-27-2023 End: 06-27-2023 ambulatory Miriam Barron MD Facility:[facility] Start: 06-06-2023 End: 06-06-2023 ambulatory Miriam Barron MD Facility:[facility] Start: 06-01-2023 End: 06-01-2023 ambulatory Robert Villasenor Other [facility] Other Start: 06-01-2023 Telephone encounter Robert Villasenor [facility] Start: 05-23-2023 End: 05-23-2023 ambulatory Miriam Barron MD Facility:[facility] Start: 05-13-2023 End: 05-13-2023 ambulatory Robert Villasenor Other [facility] Other Start: 05-13-2023 Telephone encounter Robert Villasenor [facility] Start: 05-09-2023 End: 05-09-2023 ambulatory Robert Ball Other [facility] Other Start: 05-09-2023 Telephone encounter Robert Ball [facility] Start: 05-04-2023 End: 05-04-2023 ambulatory Robert Ball Other [facility] Other Start: 05-04-2023 Telephone encounter Robert Ball [facility] Start: 05-02-2023 End: 05-02-2023 ambulatory Robert Ball Other [facility] Other Start: 05-02-2023 Telephone encounter Robert Ball [facility] Start: 04-29-2023 End: 04-29-2023 ambulatory Robert Ball Other [employer] Other Start: 04-29-2023 Office outpatient vi sit 15 minutes Robert Ball [facility] Start: 04-04-2023 End: 04-04-2023 ambulatory Robert Ball Other [facility] Other Start: 04-04-2023 Telephone encounter Robert Ball [facility] Start: 01-24-2023 End: 01-24-2023 ambulatory Robert Villasenor Other [facility] Other Start: 01-24-2023 Telephone encounter Robert Villasenor [facility] Start: 12-23-2022 End: 12-23-2022 ambulatory Robert Villasenor Other [facility] Other Start: 12-23-2022 Telephone encounter Robert Villasenor [facility] Start: 12-20-2022 End: 12-20-2022 ambulatory Robert Villasenor Other [facility] Other Start: 12-20-2022 Office outpatient vi sit 15 minutes Robert Hamilton [facility] Start: 12-17-2022 End: 12-17-2022 ambulatory Robert Villasenor Other [facility] Other Start: 12-17-2022 Telephone encounter Robert Ball [facility] Start: 11-08-2022 End: 11-08-2022 ambulatory Robert Villasenor Other [facility] Other Start: 11-08-2022 Telephone encounter Robert Ball [facility] Start: 10-22-2022 End: 10-22-2022 ambulatory Rboert Villasenor Other [facility] Other Start: 10-22-2022 Telephone encounter Robert Ball [facility] Start: 10-13-2022 End: 10-13-2022 ambulatory Robert Villasenor Other [facility] Other Start: 10-13-2022 Telephone encounter Robert Ball [facility] Start: 09-27-2022 End: 09-27-2022 ambulatory Robert Villasenor Other [facility] Other Start: 09-27-2022 Telephone encounter Robert Ball [facility] Start: 08-23-2022 End: 08-24-[address] RISHI PARKER Facility: Start: 08-04-2022 End: 08-04-2022 ambulatory Robert Villasenor Other [facility] Other Start: 08-04-2022 Office outpatient vi sit 25 minutes Robert [facility] Start: 04-03-2022 Encounter for genera l adult medical examination without abnormal findings DR ROBERT VILLASENOR [facility] Start: 03-30-2022 End: 03-31-[address] ROBERT [...] 07-03-2018 Patient encounter procedure [facility] Start: 06-20-2018 End: 06-20-2018 Evaluation and management of inpatient [facility] Procedures Date Procedure Procedure Detail Performing [...] 60 yrs+ (1 - 1-dose 75+ series) [facility] Start: 07-11-2025 GFR test (Diabetes, CKD 3-4, OR last GFR 15-59) GFR test (Diabetes, CKD 3-4, OR last GFR 15-59) [facility] Start: 04-25-2024 Annual Wellness Visi t (Medicare Advantage) Annual Wellness Visit (Medicare Advantage) [facility] Start: 12-25-2023 COVID-19 Vaccine ( season) COVID-19 Vaccine ( season) [facility] Start: 2014 Screening for osteoporosis DEXA (modify frequency per FRAX score) [facility] Start: 2009 Pneumococcal 50+ yea rs Vaccine (1 of 1 - PCV) Pneumococcal 50+ years Vaccine (1 of 1 - PCV) [facility] Start: 2009 Shingles vaccine (1 of 2) Shingles vaccine (1 of 2) [facility] Start: 2004 Screening for malign ant neoplasm of colon [facility] Start: 1999 Screening for malign ant neoplasm of breast Breast cancer screen [facility] Start: 1994 Diabetes screen Diabetes screen [facility] Start: 1989 Screening for malign ant neoplasm of cervix [facility] Start: 1980 Screening for malign ant neoplasm of cervix Pap smear [facility] Start: 1978 DTaP/Tdap/Td vaccine (1 - Tdap) DTaP/Tdap/Td vaccine (1 - Tdap) [facility] Start: 1977 Hepatitis C screening [facility] Start: 1974 HIV screening HIV screen [facility] [employer] Start: 1971 Depression Screen Depression Screen [facility] Start: 1969 Lipid panel Lipids [place] [facility] [facility] End: 07-15-2024 Basic metabolic 2000 panel - Serum or Plasma Basic Metabolic Panel Lab Routine Daily for 1 Weeks starting 07/09/2024 until 07/15/2024, 3 completed [facility] Comment on above: Daily for [address] arting 07/09/2024 until 07/15/2024, 3 completed Comprehensive metabo lic 2000 panel - Serum or Plasma [facility] Glucose [Mass/volume ] in Serum or Plasma POCT Glucose Point of Care Testing STAT As Needed until discontinued starting 07/06/2024 [facility] Comment on above: As Needed until disc ontinued starting 07/06/2024 Glucose [Mass/volume ] in Serum or Plasma POCT glucose Point of Care Testing Routine 4X Daily (AC & HS) until discontinued starting 07/07/2024, 18 completed [facility] Comment on above: 4X Daily (AC & HS) u ntil discontinued starting 07/07/2024, 18 completed Glucose [Mass/volume ] in Serum or Plasma POCT Glucose Point of Care Testing STAT As Needed until discontinued starting 07/10/2024 [facility] Comment on above: As Needed until disc ontinued starting 07/10/2024 End: 07-15-2024 Hemoglobin and Hematocrit Hemoglobin and Hematocrit Lab Routine Daily for 1 Weeks starting 07/09/2024 until 07/15/2024, 3 completed [facility] Comment on above: Daily for [address] arting 07/09/2024 until 07/15/2024, 3 completed MG Breast - bilatera l [facility] Oxygen therapy [[facility]ini [facility] Set] Initiate Oxygen Therapy Protocol Respiratory Care Routine As Needed until discontinued starting 07/08/2024 [facility] Comment on above: As Needed until disc ontinued starting 07/08/2024 Spirometry panel Incentive jesse metry Respiratory Care Routine Every 2hr while awake until discontinued starting 07/06/2024 [facility] Work Phone: Comment on above: Every 2hr while awak e until discontinued starting 07/06/2024 Spirometry panel Incentive jesse metry Respiratory Care Routine Every 2hr while awake until discontinued starting 07/08/2024 [facility] Comment on above: Every 2hr while awak e until discontinued starting 07/08/2024 [facility] Payers Date Payer Category Payer Unknown [id number] 2023 [id number] 2019 Unknown [id number] 2015 Unknown [id number] 1959 Self-pay [id number] 1959 Unknown [id number] [id number] 93 1959 Unknown [id number] 2.16.840.1.835911.3.579.2.5 93 1959 Unknown [id number] 2.16.840.1.062314.3.579.2.5 93 1959 Unknown [id number] 2.16.840.1.902104.3.579.2.5 93 1959 Unknown [id number] 2.16.840.1.864394.3.579.2.5 93 1959 Unknown [id number] 2.16.840.1.074628.3.579.2.5 93 1959 Unknown [id number] 2.16.840.1.589484.3.579.2.1 96 1959 Unknown [id number] 2.16.840.1.294592.3.579.2.1 96 1959 Unknown [id number] 2.16.840.1.515407.3.579.2.1 96 1959 Unknown [id number] 2.16.840.1.882269.3.579.2.1 96 1959 Unknown [id number] 2.16.840.1.108261.3.579.2.1 96 1959 Unknown [id number] 2.16.840.1.447358.3.579.2.1 96 1959 Unknown [id number] 2.16.840.1.167527.3.579.2.1 96 1959 Unknown [id number] 2.16.840.1.452739.3.579.2.7 27 1959 Unknown [id number] 2.16.840.1.925245.3.579.2.9 3 Medicare Medicare [id number] Unknown [id number] 2.16.840.1.922020.3.579.2.5 93 Unknown O [id number] Unknown [facility] PF [id number] Social History Date Type Detail Facility Start: 07-06-2024 Sex Assigned At [facility] Other Start: 1960 Sex Assigned At Female [facility] Tobacco smoking stat us NJIS Unknown if ever smoked [facility] Work Phone: Start: 06-25-2024 End: 07-25-2024 Sex Female (finding) [facility] Start: 07-06-2024 Tobacco smoking status NHIS Never smoked tobacco [facility] Start: 07-06-2024 Tobacco use and exposure Smokeless tobacco non-user [facility] Start: 07-09-2024 Alcoholic beverage intake Lifetime non-drinker (finding) [facility] Start: 07-06-2024 History of Social function Keith KYTOSAN [email or web address] Has the [employer], [email or web address], or water [employer] threatened to shut off services in your home in past 12Mo No [facility] (I/We) worried whekrystal er (my/our) food would run out before (I/we) got money to buy more. Never true [facility] In the past 12 month s, has lack of transportation kept you from medical appointments or from getting medications? No [facility] Start: 1960 Sex assigned at Not on file [facility] Medical Equipment Procedure Code Equipment Code Equipment Original Text Equipment Identifier Dates Screw Spnl L45mm Dia6.5mm Post Thoracolumbosacral Co Chrom - [id number] Start: 07-08-2024 Screw Spnl L40mm Dia6.5mm Post Thoracolumbosacral Co Chrom - [id number] Start: 07-08-2024 Set Scr Spnl L6m m Dia5.5mm Ti Brk Off Svetlana W/ Detach Cdh - [id number] Start: 07-08-2024 Evan Spnl L35mm D ia5.5mm Ant Post Thoracolumbosacral Ti - [id number] Start: 07-08-2024 Clinical Notes 08-04-2022 to [...] PT/OT SCD amlabs Jose Sharif MD, MD [facility] INPATIENT PHYSICAL THERAPY EVALUATION [facility] [[email or web address]] ORTHOPEDICS 7K - 7K-21/021-A Discharge Recommendations: Continue [...] or urinary incontinence. 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 Inpatient Mobility Raw Score : 17 [facility] Inpatient T-Scale Score : 42.13 Modified Magna: Premorbid Functional Status: Not Applicable Current Functional [...] with good technique/recall to progress with mobility. Mcc Goals Time Frame for Milk Condenser Goals : NA due to short ELOS Following session, patient left in safe position with all fall risk precautions in place. Pt in bed following session, all needs and call light in reach, alarm on. [facility] ORTHOPEDICS 7K Occupational Therapy Daily Note Discharge Recommendations: Home with Home Health OT Equipment Recommendations: No Monitor need for LHAE. Time In: 0800 Time Out: 827 Timed Code Treatment Minutes: 28 Minutes Minutes: 28 Date: 07/10/2024 Patient Name: Carroll Fuentes, Gender: female Room: [address] [place] [address] : 1960 (64 y.o.) Referring Practitioner: Dank [...] or urinary incontinence. 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 Patient pleasant and cooperative throughout session. PAIN: 10/02: Vitals: Vitals not assessed per clinical judgement, see nursing flowsheet COGNITION: WFL ADL: Grooming: Modified Independent. Hair care seated in bedside chair Upper Extremity Dressing: Minimal Assistance. Carroll/doff house robe Lower Extremity Dressing: Minimal Assistance. With surveyor chain helper in order to carroll/doff hospital shorts with verbal/visual cues to complete, demonstrating good understanding. Footwear Management: Supervision, X 1, with verbal cues , and with increased time for completion. Utilized surveyor chain helper/sock aid in order to doff/carroll B socks [...] indep within home environment. Additional Goals?: No Milk Condenser Goals Time Frame for Mcc Goals : No LTGs d/t short estimated [...] in am PT/OT Jose Sharif MD, MD [facility] PHYSICAL THERAPY MISSED TREATMENT NOTE [facility] [[email or web address]] ORTHOPEDICS 7K Date: 07/09/2024 Patient Name: Carroll Fuentes : 1960 (64 y.o.) Gender: female REASON FOR MISSED TREATMENT: Missed Treat. Attempted x3 today. 1st attempt, pt with tech on BSC and then requesting to eat breakfast. 2nd attempt, OT with pt. 3rd attempt, case aide in room to complete assessment. [facility] INPATIENT OCCUPATIONAL THERAPY [facility] [[email or web address]] ORTHOPEDICS 7K EVALUATION Discharge Recommendations: Continue to [...] or urinary incontinence. 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 Additional Goals?: No Milk Condenser Goals Time Frame for Mcc Goals : No LTGs d/t short estimated [...] pain 6/10 at this time, medicated by GLUING MACHINE ADJUSTER 1840 pt resting, resp easy. VSS 1850 [...] MD Spiritual Health History and Assessment/Progress Note [facility] (P) Initial Encounter, , , Name: Carroll Fuentes Age: 64 y.o. Sex: female Language: Macanese Mosque: Mandaen Intractable back pain Date: 07/07/2024 Total Time Calculated: (P) 14 min Spiritual Assessment began in [facility] [[email or web address] ORTHOPEDICS 7K Referral/Consult From: (P) Nurse Encounter [...] and how she loves everything about the tenriism. Patient finds peace and hope in her liliane as a mandaen and desires to have sacrament of the sick by a commercial center manager, before her surgery tomorrow afternoon. I told the patient that I will let the spiritual care team know. Offered patient words of encouragement, quoted Scripture, and prayed with the patient, at her request. Patient expressed gratitude. Made patient aware of cost consultant availability and support. Patient Interventions include: Facilitated expression of thoughts and feelings, Explored spiritual coping/struggle/distress, Affirmed coping skills/support systems, and Provided sacramental/church ritual Family/Friends Interventions include: No family/friends present Patient Plan of Care: Contact Liliane director community health nursing for support or sacramental needs Family/Friends Plan of Care: No family/friends present Electronically signed by Kimberlyn Chapman Clinical Support Nurse Magnesium Mill Operator on 07/07/2024 at 2:02 PM documented in this encounter [facility] 07-11-2024 Hospital Discharge instructions [facility] [...] All vegetables, especially asparagus, pruitt sprouts, broccoli, [place] sprouts, cabbage, carrots, cauliflower, celery, corn, greens, [...] taking more than one drug. This includes [id number] medication and herb or dietary supplements. Plan [...] possible side effects documented in this encounter [facility] 07-08-2024 Note PROCEDURE: XR LUMBAR SPINE [...] loss of vertebral body height is seen. [facility] 07-08-2024 Note PROCEDURE: XR LUMBAR SPINE 1 [...] [facility] 06-25-2024 Evaluation note Diagnosis Onset Date Resolution [...] internal medicine noneactive July 04, 2024 2:57pm [facility] Work Phone: 1(540) 183-191703-03-2025 Evaluation note* Diagnosis Onset Date Resolution Status [...] h hyperglycemia acute July 04, 2024 2:57pm [facility] Work Phone: 1(527) 747-785703-03-2025 Evaluation note* Diagnosis Onset Date Resolution Status [...] 2024 2:57pm Acute blood loss anemia acute [facility] 2024 9:25am Central stenosis of spinal canal acu te July 13, 2024 9:25am Herniated intervertebral dis c of lumbar spine acute July 13, 2024 9:25am Hypotension due to hypovolemia acute July 13, 2024 9:25am Type 2 diabetes mellitus wit h hyperglycemia acute July 13, 2024 9:25am Acute blood loss anemia acute [facility] 2024 10:08am Adverse effect of mixed sedatives acute July 18, 2024 10:08am Central stenosis of spinal canal acu te July 18, 2024 10:08am Herniated intervertebral dis c of lumbar spine acute July 18, 2024 10:08am Hypotension due to hypovolemia acute July 18, 2024 10:08am Type 2 diabetes mellitus wit h hyperglycemia acute July 18, 2024 10:08am Visual hallucinations acute [facility] 2024 10:08am [facility] Work Phone: 1(348) 647-716803-03-2025 Evaluation note* Diagnosis Onset Date Resolution Status [...] 2024 9:25am Acute blood loss anemia acute [facility] 2024 10:08am Central stenosis of spinal canal acu te July 18, 2024 10:08am Herniated intervertebral dis c of lumbar spine acute July 18, 2024 10:08am Hypotension due to hypovolemia acute July 18, 2024 10:08am Type 2 diabetes mellitus wit h hyperglycemia acute July 18, 2024 10:08am Visual hallucinations acute [facility] 2024 10:08am [facility] Work Phone: 1(928) 251-127002-07-2024 Evaluation note* Encounter Date Diagnosis Assessment Notes Treatment Notes Treatment Clinical Notes May, Autoimmune thyroiditis (ICD-10 - E06.3) May, Elevated cholesterol (ICD-10 - E78.00) May, Type 2 diabetes mellitus with hyperglycemia, without long-term current use of insulin (ICD-10 - E11.65) May, Primary hypertension (ICD-10 - I10) May, Intractable chronic migraine without aura and without status migrainosus (ICD-10 - G43.719) [facility] Other 01-15-2024 Evaluation note* Encounter Date Diagnosis Assessment Notes Treatment Notes Treatment Clinical Notes Apr, Intractable chronic migraine without aura and without status migrainosus (ICD-10 - G43.719) [facility] Other 01-08-2024 Evaluation note* Encounter Date Diagnosis Assessment Notes Treatment Notes Treatment Clinical Notes Apr, Intractable chronic migraine without aura and without status migrainosus (ICD-10 - G43.719) [facility] Other 01-05-2024 Evaluation note* Encounter Date Diagnosis [...] Begin Amitriptyline Stop Tizanidine. MRI cervical spine [facility] Other 08-31-2023 Evaluation note* Encounter Date Diagnosis Assessment Notes Treatment Notes Treatment Clinical Notes Nov, Primary hypertension (ICD-10 - I10) [facility] Other 08-28-2023 Evaluation note* Encounter Date Diagnosis Assessment Notes Treatment Notes Treatment Clinical Notes Nov, Adverse effect of smooth muscle relaxant, subsequent encounter (ICD-10 - T44.3X5D) Avoid combination of Klonopin and Zanaflex when scheduled neonatal specialist. May want to cut back on Zanaflex. [...] Pain in left shoulder (ICD-10 - M25.512) [facility] Other 06-30-2023 Evaluation note* Encounter Date Diagnosis Assessment Notes Treatment Notes Treatment Clinical Notes Sep, Type 2 diabetes mellitus with hyperglycemia, without long-term current use of insulin (ICD-10 - E11.65) [facility] Other 06-05-2023 Evaluation note* Encounter Date Diagnosis Assessment Notes Treatment Notes Treatment Clinical Notes Sep, Candidiasis, intertriginous (ICD-10 - B37.2) [facility] Other 04-12-2023 Evaluation note* Encounter Date Diagnosis [...] use, the patient reduces the risk for NH, CVA, HTN, cardiac dysrhythmias and sudden cardiac [...] Jul, Other specified hypothyroidism (ICD-10 - E03.8) [facility] Other Evaluation noteNo [employer]ort [employer] Other Evaluation noteNo assessment information available [facility] Work Phone: Evaluation note* Diagnosis Onset Date Resolution Status Cervical pain acute Cervical spondylosis acute Cervical pain acute Cervical spondylosis acute Painful lumpy right breast a cute [facility] Work Phone: Evaluation note* Diagnosis Intractable back pain- Primary Backache, unspecified Spinal stenosis of lumbar region with neurogenic claudication Spinal stenosis, lumbar region, with neurogenic claudication Primary hypertension Unspecified essential hypertension Type 2 diabetes mellitus, without long-term current use of insulin (HCC) documented in this encounter [facility] general Narrative - Reported* Type Description [...] CATHETERIZATION 2016 Hospitalization History SEE SURIGCAL HX [facility] Other History general Narrative - Reported* Type [...] knee arthroscopy 10/2022 Hospitalization History SEE SURIGCAL [facility] Other Reason for referral (narrative)* Reason Evaluation of right knee pain Diagnosis 1 Strain of right knee , subsequent encounter (S86.676Z) Referral Organization [facility] [address] [facility] bhupinder Referring Provider First Name Robert Referring Provider Last Name Hamilton Referring Provider Specialty Internal Me yoni Referred Provider Rishi Parker Jr Referred Provider Specialty Orthopedic S urgery Referral Priority Routine [facility] Other Reason for referral (narrative)* Reason Referral for neck pa in Diagnosis 1 Cervicalgia (M54.2) Diagnosis 2 Cervical spondylosis (M47.812) Referral Organization [facility] [address] [facility] bhupinder Referring Provider First Name Robert Referring Provider Last Name Hamilton Referring Provider Specialty Internal Mi dicine Referred Organization [facility] Referred Address [address] [place], [place],[address] Referred Provider Specialty Pain Medicin e Referral Priority Routine General Notes Patient has hx of ce rvical discectomy and fusion and presented w/ persistent neck pain, which radiated upwards causing a headache. She is being referred for treatment with the pain clinic. Clinical Notes Include MRI [facility] Other Reason for visit Narrative* Auth/Cert Specialty Diagnoses / Procedures Referred By Jass adams Referred To Contact Diagnoses Intractable back pain large disc herniation Kole, Jose Meier MD [address] [place] [address] Phone: tel: fax: [facility] [address] [place] [address] Referral ID Status Reason Start Date Expiration Date Visits Re quested Visits Authorized [id number] 1 1 Comparisim Summary Purpose Family History No Family History [...] 2:57pm Type 2 diabetes mellitus with hyperglyce [facility] July 04, 2024 2:57pm Acute blood [...] section and content) DATE CREATED AUTHOR 06/20/2018 [facility] DATE CREATED AUTHOR AUTHOR'S ORGANIZ ATION 07/04/2018 [facility] DATE CREATED AUTHOR AUTHOR'S ORGANIZ ATION 09/18/2020 [facility] DATE CREATED AUTHOR AUTHOR'S ORGANIZ ATION 08/27/2022 [facility] DATE CREATED AUTHOR AUTHOR'S ORGANIZ ATION 04/18/2024 [facility] DATE CREATED AUTHOR AUTHOR'S ORGANIZ ATION 06/23/2024 Trevor Crabtree [facility] DATE CREATED AUTHOR AUTHOR'S ORGANIZ ATION 08/10/2024 [facility] REASON FOR VISIT (unrecogniz [...] July 04, 2024 End: July 04, 2024 Database Coordinator Relationship Specialty Start Date End Date Robert Villasenor DO [address] [place] [phone] PCP - General Internal Medicine 07/06/24 Team [...] for injection by adding 1 mL of manager front office-supplied sterile diluent or sterile water for injection [...] BE BASED ON THE PRIMARY CLINICAL RECORDS. [employer] provides no warranty or guarantee of the accuracy or completeness of information in this document.
--- OUTSIDE RECORDS SUMMARY | 2024-10-12 06:00 | XMS_ITS ---
Author Organization [facility] Address [address] [place] [address] Care Team Providers Care Audit Tech Name Role Phone MICA VILLASENOR DO Primary Care Provider Unavaila ble Eloise Meehan Unavailable [phone] REASON FOR VISIT LUMBAR RECHECK Encounters Encounter Location Date Provider Diagnosis [facility] [address] [place] [phone] 10/12/2024 Eloise Meehan Plan Of Treatment Next Appt Details Provider Name:Lucihal Ny, 10/19/2024 11:10:00 AM, [address] [place], [address], Provider Name:Tomás penny, 11/12/2024 02:00:00 PM, [address] [place], [address], Progress Notes * FINA CARROLL ADOB:[birth year] (64 yo F)Acc No.[id number]:10/12/2024 Patient: CARROLL CARRERO Provider: Lea Veliz MD, PhD :1960 A ge:64 Y S ex:Female Date:10/12/2024 [address] [facility] Pcp:MICA VILLASENOR DO Subjective: * Chief Complaints: * 1 . LUMBAR RECHECK. * Medical History: Objective: * Vitals: Assessment: Plan: * Treatment: Forms: * Images: * Electronic signature of Selv on Zoran , MD, PHD on 10/13/2024 at 08:50 AM EDT Sign off status: Pending * Provider: Lea Veliz MD, PhD Date: 0 10/12/2024 Generated for Carlene navarrete/Geena/Cyril on: 0 10/13/2024 08:50 AM EDT
--- OUTSIDE RECORDS SUMMARY | 2024-10-13 08:50 | XMS_ITS | Clinical Summary ---
Author Organization [facility] Address [address] [place] [address] Care Team Providers Care General Accounting Clerk Name Role Phone Robert Cruz Primary Care Provider [phone] Medications No known medications Active Problems No [...] Not on file Insurance [employer] Care Teams General Accounting Clerk Relationship Specialty Start Date End Date Robert Cruz DO PCP - General Internal Medicine 10/01/22
--- OUTSIDE RECORDS SUMMARY | 2024-10-13 08:50 | XMS_ITS | Patient Health Record ---
Author Organization [facility] Address [address] [place] [address] Care Team Providers Care Patient Case Coordinator Name Role Phone MICA CRUZ DO Primary Care Provider UnavailEloise Haq Unavailable [phone] Norbert Lewis Unavailable [phone] Dank Sams Unavailable [phone] Norbert Lamar Unavailable [phone] Henok Rosario Unavailable [phone] Tomás Helton Unavailable [phone] Brandi Duque Unavailable [phone] Allergies Allergen (clinical drug ingredient) Drug/Non Drug [...] MRI : Shoulder W/O Contrast Right - 21514 Reviewed date:05/01/2024 03:44:41 PM Interpretation: Performing Lab: Notes/Report: XR LUMBAR SPINE 1 VW Reviewed date:07/11/2024 01:53:12 PM Interpretation: Performing Lab: Notes/Report: PROCEDURE: XR LUMBAR SPINE 1 VW [facility] [address] [place], [place] [address], Original Ordering Provider: Magdaleno GREWAL Provider Role: Ordering XR LUMBAR SPINE 1 VW Reviewed date:07/11/2024 01:53:12 PM Interpretation: Performing Lab: Notes/Report: MOBILE LATERAL LUMBAR SPINE: [facility] [address] [place], [place] [address], Original Ordering Provider: Magdaleno GREWAL Provider Role: Ordering Reason For Referral Reason REFERRAL TO [facility] Diagnosis 1 DDD (degenerative di sc disease), cervical (M50.30) Referral Organization [facility] Referring Provider First Name Eloise Referring Provider Last Name St Zambrano Referring Provider Speciality Orthopedic Surgery Referred Organization Pain clinic General Notes Barb Kendall 2023 10:19:59 AM >, Barb Kendall 04/03/2024 03:22:45 PM >FAXED TO [facility] Referral Priority Routine Reason RAMO................. PLEASE OBTAIN AUTHORIZATION FOR RIGHT SHOULDER MRI - SEE NOTES Diagnosis 1 Acute pain of right shoulder (M25.511) Referral Organization [facility] Referring Provider First Name Norbert Referring Provider Last Name [place] Referring Provider Speciality Orthopedic Surgery Referred Organization [facility] Referred Address [place], [place], Procedure 1 MRI Joint Upper Ext w/o Dye (41050) General Notes Cinthya Vila 2023 12:11:06 PM >SUSI TERESA ENDS TUESDAY, Rajni Betnon 04/02/2024 04:08:03 PM >PER ROBERTA: The following [...] pain of right shoulder (M25.511) Referral Organization [facility] Referring Provider First Name Norbert Referring Provider Last Name Brianda Referring Provider Speciality Orthopedic Surgery Referred Organization [facility] Referred Address [facility] Procedure [address] CT UPPER EXTREMITY W /DYE (28567) General Notes Rajni Benton 025 01:33:00 PM [...] of right shoulder (Z96.611) Referral Organization [facility] Referring Provider First Name Henok Referring Provider Last Name Marlene Referring Provider Speciality Orthopedic Surgery Referred Organization [facility] vipul Referred Provider Henok Rosario Referred Address [facility] Referred Provider Specialty Orthopedic S urgery [...] Problem Status W/U Status Risk Notes Problem [id number] Arthrodesis status (Z98.1) Active confirmed Problem 291322829715268 Pain, joint, knee, right (M25.561) Active confirmed Problem 99380594 Cervical pain (M54.2) Active confirmed Problem 270244174 Spondylolisthesi s , cervical region (M43.12) Active confirmed Problem Acquired spondylolisthesis (119640189) Spondylolisthesis , lumbar region (M43.16) Active confirmed Problem Displacement of lumbar intervertebral disc without myelopathy (37401415) Other intervertebral disc displacement, lumbar region (M51.26) Active confirmed Problem 511025799 Encounter for change or removal of drains (Z48.03) Active confirmed Problem 279199237522771 intermediate frame tender (current) use of opiate analgesic (Z79.891) Active confirmed Problem 216006998522121 Sciatica of righ t side (M54.31) Active confirmed Problem 240756243 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) Active confirmed Problem 241785586 Lumbar spondylosis (M47.816) Active confirmed Problem 2098030333 Acute pain of right shoulder (M25.511) Active confirmed Problem 15127285 Other cervical disc degeneration at C4-C5 level (M50.321) Active confirmed Problem Spinal stenosis of lumbar region (09887661) Spinal stenosis, lumbar region without neurogenic claudication (M48.061) Active confirmed Problem 923206826 Encounter for other orthopedic aftercare (Z47.89) Active confirmed Problem Other intervertebral disc degeneration, lumbar region with discogenic back pain and lower extremity pain (M51.362) Active confirmed Vital Signs Height 5'1 in 07/13/2024 Weight 174 lbs 07/13/2024 BMI 32.87 07/13/2024 Encounters Encounter Location Date Provider Diagnosis [facility] Inpatient [address] [place], [place] [id number] 07/07/2024 Dank Diglio Spinal stenosis, lumbar region without neurogenic claudication M48.061 ; Other intervertebral disc displacement, lumbar region M51.26 and Spondylolisthesis, lumbar region M43.16 [facility] Office [address] [place] [address] 10/01/2024 Tomás Helton Pain, joint, knee, right M25.561 [facility] [address] [place] [address] 03/30/2024 [facility] Spondylolisthesis, cervical region M43.12 ; Other cervical disc degeneration at C4-C5 level M50.321 and Arthrodesis status Z98.1 [facility] [address] [facility] [place] [address] 04/02/2024 Norbert [place] Acute pain of right shoulder M25.511 [facility] [address] [facility] [place] [address] 04/30/2024 Norbert [place] Acute pain of right shoulder M25.511 [facility] [address] [place] [address] 05/30/2024 Henok Rosario Acute pain of right shoulder M25.511 [facility] [address] [place] [address] 06/27/2024 Henok Rosario Encounter for preprocedural laboratory examination Z01.812 ; Acute pain of right shoulder M25.511 ; Encounter for other preprocedural examination Z01.818 ; 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 and History of right shoulder replacement Z96.611 [facility] [address] [place] [address] 07/06/2024 Dank Diglio Sciatica of right si de M54.31 and Lumbar spondylosis M47.816 [facility] Inpatient [address] [place], [place] [id number] 07/08/2024 Selvon Zoran Spinal stenosis, lumbar region without neurogenic claudication M48.061 ; Other intervertebral disc displacement, lumbar region M51.26 ; Spondylolisthesis, lumbar region M43.16 and Other intervertebral disc degeneration, lumbar region with discogenic back pain and lower extremity pain M51.362 [facility] [address] [facility] [place] [place] [address] [facility] Encounter for other orthopedic aftercare Z47.89 ; Encounter for change or removal of drains Z48.03 and Arthrodesis status Z98.1 [facility] [address] [facility] [place] [address] 07/27/2024 [facility] Encounter for other orthopedic aftercare Z47.89 and Arthrodesis status Z98.1 [facility] [address] [facility] [place] [address] 08/24/2024 [facility] Encounter for other orthopedic aftercare Z47.89 ; Arthrodesis status Z98.1 and care home (current) use of opiate analgesic Z79.[address] [place] [address] 06/26/2024 Henok Rosario [address] [place] [address] 06/27/2024 Henok Rosario [address] [place] [address] 07/12/2024 Eloise Meehan [address] [place] [address] 07/20/2024 Selvon Zoran Aftercare following surgery of the musculoskeletal system Z47.89 [address] [place] [address] 07/30/2024 Norbertfelicia Lewis Spondylolisthesis, lumbar region M43.16 ; Spinal stenosis, lumbar region without neurogenic claudication M48.061 and Aftercare following surgery of the musculoskeletal system Z47.[address] [place] [address] [place] [address] 09/12/2024 Selvon Zoran Assessments Encounter Date Diagnosis [...] 1.5 days s/p L3-5 decompression/f usion 08/24/2024 care home (current) use of opiate analgesic (ICD-10 - [...] shoulder arthroplasty she prefers to follow-up at [facility] and not the [facility]. I recommended a CT arthrogram to [...] Date Lumbar spine, 4v flex ext - 15328 2024 Lumbar spine 2v ap and lat - 05816 07/27 Cell count 05/30/2024 Cervical spine,ap,lat,flex,ext - 40940 1 05/31/2023 EKG 06/27/2024 Crystals 05/30/2024 BMP 06/27/2024 MRSA (Bilateral Nares) PCR 06/27/2024 SFS - Lumbar Spine PT Order, Isometrics & Strenghening w/Modalities as needed, 2-3 times per week for 6 weeks 07/27/2024 CBC W Diff 05/30/2024 Type and Screen 06/27/2024 Urinalysis w/Reflex C and S 06/27/2024 AEROBIC AND ANAEROBIC CULTURE 05/30/2024 SCC- KNEE 4 VIEW RIGHT 92065 10/01/2024 FACET INJECTION 03/30/2024 ESR, CRP 05/30/2024 Aspiration for cultrues of Right shoulde r 05/30/2024 Next Appt Details Provider Name:Eloise Knox [facility], 10/19/2024 11:10:00 AM, [address] [place] [address], [phone], Provider Name:Tomás penny, 11/12/2024 02:00:00 PM, [address] [place] [address], [place], [address], Insurance Providers Payer Name Payer Address Payer Phone Subscriber Number Group Number Insured Name Patient Relationship to Insured Coverage Start Date Coverage End Date Medicare [employer] [place] [address] [place] [address] [phone] [id number] CARROLL HARDEN Self - patient is the insured 4 [facility] [address] [place] [address] [id number] CARROLL [place]EN Self - patient is the insured 4 Medicare [address] [address] [place] [address] [id number] CARROLL [place]EN Self - patient is the insured Medical (General) History Medical History History ICD Code High Blood Pressure Diabetes Thyroid disease Osteoporosis Osteoarthritis Depression 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
--- OUTSIDE RECORDS SUMMARY | 2024-10-13 08:50 | XMS_ITS | Clinical Summary ---
Author Organization [facility] Address [id number] [address] [id number] Care Team Providers Care Software Tools Developer Name Role Phone Unavailable Primary Care Provider [...]
--- OUTSIDE RECORDS SUMMARY | 2024-10-13 08:50 | XMS_ITS | Encounter Summary ---
Author Organization [facility] Address [address] [place] [address] Care Team Providers Care Night Monitor Name Role Phone Robert Cruz DO Primary Care Provider [phone] Encounter Details Date Type Department Care Team (Late st Contact Info) Description 10/01/2022 Abstract [facility] [address] [facility] [address] [place] [address] Isreal Clark PA [address] [facility] [address] [place] [address] Social History Tobacco Use Types Packs/Day Years [...] on filedocumented in this encounter Care Teams Night Monitor Relationship Specialty Start Date End Date Robert Cruz DO PCP - General Internal Medicine 10/01/22 documented as of this encounter
--- OUTSIDE RECORDS SUMMARY | 2024-10-13 08:51 | XMS_ITS | Clinical Summary ---
Author Organization [facility] Address [address] [place] [address] Care Team Providers Care Merry Go Round Operator Name Role Phone Robert Cruz DO Primary Care Provider Allergies Active Allergy Reactions Criticality Noted Date [...] lumbar re gion with neurogenic claudication 07/06/2024 Social History Tobacco Use Types Packs/Day Years Used Date Smoking Tobacco: Never Smokeless Tobacco: Never Tobacco Cessation:Counseling Given: No Alcohol Use Standard Drinks/Week Comments Never 0 (1 standard drink = 0.6 oz pur e alcohol) [facility] Utilities Answer Date Recorded In the past 12 months has th e [employer], [employer], oil, or water [employer] threatened to shut off services in your [...] time in the past 12 m [facility], were you homeless or living in a penitentiary (including now)? No 07/06/2024 Food Insecurity Answer [...] frequency per FRAX score) 2014 COVID-19 Vaccine (2023- season) 2023 Annual Wellness Visit (Medicare Advantage) [...] this topic Medical Devices Implanted Type Area Leather Tanner Device Identifier Shelf Expiration Date Model / Serial / Lot Screw Spnl L45mm Dia6.5mm Post Thoracolumbosacral Co Chrom - [id number] Implanted:Qty: 2 on 07/08/2024 by Eloise Veliz MD at [facility] N/A: Spine Lumbar [employer] DANEK-WD [id number] / / Screw Spnl L40mm Dia6.5mm Post Thoracolumbosacral Co Chrom - [id number] Implanted:Qty: 2 on 07/08/2024 by Eloise Veliz MD at [facility] N/A: Spine Lumbar [employer] SO[employer] DANEK-WD [id number] / / Set Scr Spnl L6mm Dia5.5mm Ti Brk Off Svetlana W/ Detach Cdh - [id number] Implanted:Qty: 4 on 07/08/2024 by Eloise Veliz MD at [facility] N/A: Spine Lumbar [employer] SO[employer] DANEK-WD [id number] / / Evan Spnl L35mm Dia5.5mm Ant Post Thoracolumbosacral Ti - [id number] Implanted:Qty: 2 on 07/08/2024 by Eloise Veliz MD at [facility] N/A: Spine Lumbar [employer] SOFAMOR DANEK-WD [id number] / / Procedures Procedure Name Priority Date/Time Associated Diagnosis Comments GLOMERULAR FILTRATION RATE, ESTIMATED Routine 07/11/2024 6:43 AM EDT from Last 3 Months or Most Recently Relevant to Health Maintenance Results * Glomerular Filtration Rate, Estimated (07/11/2024 6:43 AM EDT) [facility] Evita Sajan Filt Rate 62 >60 ml/min/1.7 3m2 07/11/2024 7:21 AM EDT [facility] Comment: Pediatric calculator link [email or web address]://www.kidney.org/professionals/kdoqi/gfr_calculatorped Effective [...] that affects renal tubular secretion. Performed at [facility] [address] [place] [address] 07/11/2024 6:43 AM EDT 07/11/2024 6:43 AM EDT us Dank CHAPMAN CHEMISTRY ORDERABLES Final Resu lt [facility] [address] [place] [address], [facility] [phone] [facility] [address] [place] [address], [facility] [phone] from Last 3 Months or Most Recently Relevant to Health Maintenance Insurance [employer] Advance Directives Documents on File Type Date Recorded Patient Kiln Furniture Caster Expl anation ACP-Advance Directive 07/13/2024 10:35 PM ACP-Advance Directive 07/13/2024 10:35 PM * Full Code (Latest Code Status on File) Date Activated Date Inactivated Comments 07/06/2024 7:55 PM 07/11/2024 2:07 PM Healthcare Agents on File Name Relationship Healthcare Agent Relationshi p Communication Babatunde Fuentes Spouse Primary Decision Maker Care Teams Merry Go Round Operator Relationship Specialty Start Date End Date Robert Cruz DO [address] [place] [id number] PCP - General Internal Medicine 07/06/24
--- OUTSIDE RECORDS SUMMARY | 2024-10-13 08:51 | XMS_ITS | Clinical Summary ---
Author Organization [facility] Address [address] [place], [place] [id number] Care Team Providers Care Carriage Rider Name Role Phone Robert Cruz Primary Care Provider [phone] Allergies Active Allergy Reactions Criticality Noted Date [...] before breakfast. 3 8 Active rizatriptan (MAXALT BAKING ASSISTANT) 10 mg disintegrating tablet DISSOLVE 1 [...] N ot on file 04/02/2020 Data from: [email or web address].[email or web address] Last address used for calculation Not on [...] series) 2034 Medical Devices Implanted Type Area Bow Maker Production Device Identifier Shelf Expiration Date Model / Serial / Lot Cement Simplex P Speedset Bone Radiopaque Sterile - [id number] Implanted:Qty : 1 on 06/20/2018 by Avila Garsia MD at [facility] Cement / Putty Right: Bone - Shoulder [facility] 09/23/2019 [id number] / / [id number] Kiv-Tn-H-Kind Implant - [id number] Implanted:Qty : 1 on 11/18/2016 at [facility] Implant Left: Bone - Shoulder [employer] [id number] / / [id number] Pmt-Xz-Q-Kind Implant - [id number] Implanted:Qty : 1 on 11/18/2016 at [facility] Implant Left: Bone - Shoulder [employer] [id number] / / [id number] All Poly Pegged Glenoid Implanted:Qty : 1 on 11/18/2016 at [facility] Implant Left: Bone - Shoulder [employer] 08/17/2021 [id number] / [id number] / [id number] Short Humeral Stem, [id number] Implanted:Qty : 1 on 06/20/2018 by Avila Garsia MD at [facility] Implant Right: Bone - Shoulder [employer] 05/10/2024 520-10-000 / / [id number] Neutral Humeral Head [id number] Implanted:Qty : 1 on 06/20/2018 by Avila Garsia MD at [facility] Implant Right: Bone - Shoulder [employer] 05/01/2024 520-42-216 / / [id number] Neck Hum Altivate - [id number] Implanted:Qty : 1 on 11/18/2016 at [facility] Joint - Shoulder Left: Bone - Shoulder [employer] 08/19/2022 520-07-000 / / [id number] Comp Ru Allpoly 42mm Eplus - [id number] Implanted:Qty : 1 on 06/20/2018 by Avila Garsia MD at [facility] Joint - Shoulder Right: Bone - Shoulder [employer] 01/06/2023 521-07-242 / / [id number] Neck Hum Altivate - [id number] Implanted:Qty : 1 on 06/20/2018 by Avila Garsai MD at [facility] Joint - Shoulder Right: Bone - Shoulder [employer] 06/06/2024 520-07-000 / / [id number] Procedures Procedure Name Priority Date/Time Associated Diagnosis Comments BASIC METABOLIC PANEL Routine 06/07/2018 11:00 AM EST Glenohumeral arthritis, right from Last 3 Months or Most Recently Relevant to Health Maintenance Results * (ABNORMAL) BASIC METABOLIC PNL (06/07/2018 11:00 AM EST) Glucose 133(H) 74 - 99 mg/dL 06/07/2018 8:31 PM [facility] Comment: The [place] Diabetes Association (ADA) provides guidance for cutoff [...] Standards of Medical Care in Diabetes 2016, [place] Diabetes Association. Diabetes Care. 2016.39(Suppl 1). BUN 24(H) 7 - 21 mg/dL 06/07/2018 8:31 PM [facility] Creatinine 0.91 0.58 - 0.96 mg/dL 06/07/2018 8:31 PM [facility] Sodium 139 136 - 144 mmol/L 06/07/2018 8:31 PM [facility] Potassium 5.1 3.7 - 5.1 mmol/L 06/07/2018 8:31 PM [facility] Chloride 100 97 - 105 mmol/L 06/07/2018 8:31 PM [facility] CO2 26 22 - 30 mmol/L 06/07/2018 8:31 PM [facility] Anion Gap 13 9 - 18 mmol/L 06/07/2018 8:31 PM EST [facility] Calcium 9.6 8.5 - 10.2 mg/dL 06/07/2018 8:31 PM EST [facility] eGFR- >60 06/07/2018 8:31 PM EST [facility] eGFR-All Other Races >60 . 06/07/2018 8:31 PM EST [facility] Comment: eGFR (Estimated GFR) Units [...] us Avila Garsia MD LABORATORY Final Result [facility] [address] [place] [address] from Last 3 Months or Most Recently Relevant to Health Maintenance Insurance [facility] P[facility] Advance Directives Documents on File Type Date Recorded Patient Test Boring Crew Chief Expl anation Advance Directive(s) 11/18/2016 6:54 AM Care Teams Carriage Rider Relationship Specialty Start Date End Date Robert Cruz DO [address] [id number] PCP - General Internal Medicine 05/17/18
--- OUTSIDE RECORDS SUMMARY | 2024-10-13 08:52 | XMS_ITS | CCD ---
Author Organization [facility]ini[employer] Care Team Providers Care Digital Print Operator Name Role Phone REECE GARSIAIC New [...] to drug (disorder) 09-30-19 11 [facility] Repository (2 sources) HYDROmorphone; Translations: [HYDROMORPHONE (BULK)] Drug Allergy 08-17-19 17 [facility] Repository (20 sources) Latex; Translations: [LATEX] Propensity to adverse reactions to drug (disorder) 09-30-19 11 [facility] Repository (2 sources) Meperidine; Translations: [MEPERIDINE (PF)] Drug Allergy 09-30-19 11 [facility] Repository (2 sources) Povidone-Iodine; Translations: [POVIDONE-IODINE] Drug Allergy 10-21-19 17 [facility] Repository (2 sources) SUMAtriptan; Translations: [SUMATRIPTAN SUCCINATE] Drug Allergy 09-30-19 11 [facility] Repository (2 sources) INFLUENZA VACCINE TRI-SP 09-10; Translations: [INFLUENZA VACCINE TRI-SP 09-10] Propensity to adverse reactions to drug (disorder) 09-30-19 11 [facility] Repository (3 sources) DHE; Translations: [DHE] Propensity to adverse reactions to drug (disorder) 10-24-19 13 [facility] Repository (20 sources) HYDROmorphone Drug Allergy 12-20-19 24 Unknown, Unknown Reaction [facility] (20 sources) Iodine; Translations: [iodine] Drug Allergy 10-24-19 13 Unknown, Unknown Reaction [facility] Repository (20 sources) Meperidine Drug Allergy 12-20-19 24 Unknown, Unknown Reaction [facility] (20 sources) SUMAtriptan Drug Allergy 12-20-19 24 [facility] (20 sources) Fluad Drug allergy 12-20-19 24 Unknown, Unknown Reaction [facility] (18 sources) DHEA Drug allergy 07-07-19 25 Anaphylaxis [employer] [facility] [employer] Other (2 sources) HYDROmorphone; Translations: [Dilaudid] Drug Allergy 10-24-19 13 [facility] Repository (1 source) Meperidine Drug Allergy 10-24-19 13 [facility] Repository (2 sources) Plasmin; Translations: [Imitrex] Drug Allergy 10-24-19 13 [facility] Repository (12 sources) influenza A virus (H1N1) antigen / influenza A virus (H3N2) antigen / influenza B virus antigen Drug Allergy 11-21-19 14 Comment:FLU VACCINE [employer] [facility] [employer] Other (12 sources) Contraindication to Flu Injection Propensity to adverse reactions 03-07-20 Comment:advers e rxn/side effects [employer] [facility] [employer] Other (3 sources) patient allergy list reviewed by nurse or physicia Propensity to adverse reactions 12-22-19 Comment:Done [employer] [facility] [employer] Other (7 sources) Calcium Drug Allergy 12-20-19 24 Unknown Reaction [facility] (7 sources) Calcium Carbonate Drug Allergy 12-20-19 24 Unknown Reaction [facility] (7 sources) prasterone (DHEA) Allergy to substance 12-20-19 24 Unknown Reaction [facility] (7 sources) Fluad Quadrivalent Allergy to substance 04-29-19 24 Comment:FLU VACCINE [facility] Comment on above: Onset Date: 11/21/19 14 (1 source) Meperidine; Translations: [Demerol HCl] Drug Allergy [facility] Repository (1 source) flu vaccines; Translations: [flu vaccines] Propensity to adverse reactions (disorder) [facility] Repository (1 source) Iodine Strong Propensity to adverse reactions to drug 07-07-19 Hives [facility] [employer] (1 source) Meperidine Drug Allergy 07-07-19 25 Other (See Comments) [facility] Current Medications Medication Drug Class(es) Dates [...] for injection by adding 1 mL of sugar house supervisor-supplied sterile diluent or sterile water for injection [...] 12:00am Start: 12-20-2023 take 1 capsule by [facility] once daily Magnesium Aspart,Citrate,Oxide 400 mg magnesium [...] disintegrating tablet 4 mg polyethylene glycol [id number] [id number] mg powder for oral solution (1 source) [...] every two hours as needed for headache [employer]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 [...] (Normalized) Sig (Original) 20 ml albumin human, alf 250 mg/ml injection (1 source) Human Serum [...] Start: 07-08-2024 take 10 mg rectal ro [place] once daily as needed for constipation 10 [...] days Sep, Active take 1 tablet by [facility] once daily as needed clonazePAM [...] Post-op docusate sodium 50 mg / sennosides, alf 8.6 mg oral tablet (1 source) Start: [...] 20 mL/lumen, Post-[place] [address] mg powder for oral suspension (1 source) [...] Basophils (Bld) [#/Vol] Automated basophil count 0.0-0.1 [facility] Basophils/100 WBC Auto (Bld) on 07-18-2024 Basophils/100 WBC (Bld) Automated basophil % 0.2-2.0 [facility] Eosinophils/100 WBC Auto (Bl d)on 07-18-2024 Eosinophils/100 WBC (Bld) Automated eosinophil % 0.9-7.0 [facility] Erythrocyte distribution wid th Auto (RBC) [Ratio]on 07-18-2024 Erythrocyte distribution width (RBC) [Ratio] Erythrocyte distribution width [Ratio] by Automated count 11.0-15.0 [facility] Hematocrit Auto (Bld) [Volum e fraction]on 07-18-2024 Hematocrit (Bld) [Volume fraction] Hematocrit [Volume Fraction] of Blood by Automated count Low 36.0-48.0 [facility] Hemoglobin [Mass/volume] in Bloodon 07-18-2024 Hemoglobin (Bld) [Mass/Vol] Hemoglobin [Mass/volume] in Blood Low 12.0-16.0 [facility] Laboratory - Hematology and Cell countson 07-18-2024 Immature granulocytes/100 WBC (Bld) 0.6 % High 0.0-0.5 [facility] Leukocytes [#/volume] correc chip for nucleated erythrocytes in Blood by Automated counon 07-18-2024 WBC corrected for nucl RBC Auto (Bld) [#/Vol] Leukocytes [#/volume] corrected for nucleated erythrocytes in Blood by Automated coun 4.0-11.0 [facility] Lymphocytes Auto (Bld) [#/Vo l]on 07-18-2024 Lymphocytes (Bld) [#/Vol] Lymphocytes [#/volume] in Blood by Automated count 1.2-3.8 [facility] Lymphocytes/100 WBC Auto (Bl d)on 07-18-2024 Lymphocytes/100 WBC (Bld) Lymphocytes/100 leukocytes in Blood by Automated count 20.5-60.0 [facility] MCH Auto (RBC) [Entitic mass ]on 07-18-2024 MCH (RBC) [Entitic mass] MCH [Entitic mass] by Automated count 26.7-34.0 [facility] MCHC Auto (RBC) [Mass/Vol]on 07-18-2024 MCHC (RBC) [Mass/Vol] MCHC [Mass/volume] by Automated count 29.9-35.2 [facility] MCV Auto (RBC) [Entitic vol] on 07-18-2024 MCV (RBC) [Entitic vol] MCV [Entitic volume] by Automated count 81.0-99.0 [facility] Monocytes Auto (Bld) [#/Vol] on 07-18-2024 Monocytes (Bld) [#/Vol] Automated blood monocyte count 0.3-0.8 [facility] Monocytes/100 WBC Auto (Bld) on 07-18-2024 Monocytes/100 WBC (Bld) Automated monocyte % 1.7-12.0 [facility] Neutrophils Auto (Bld) [#/Vo l]on 07-18-2024 Neutrophils (Bld) [#/Vol] Neutrophils [#/volume] in Blood by Automated count 1.4-6.5 [facility] Neutrophils/100 WBC Auto (Bl d)on 07-18-2024 Neutrophils/100 WBC (Bld) Automated neutrophil % 43.0-75.0 [facility] No Panel Informationon 07-18 Eosinophils # (Auto) 0.3 10 3/uL 0.0-0.7 [facility] Immature Granulocyte # (Auto) 0.03 10 3/uL 0.00-0.03 [facility] Platelet mean volume Auto (B ld) [Entitic vol]on 07-18-2024 Platelet mean volume (Bld) [Entitic vol] Platelet mean volume [Entitic volume] in Blood by Automated count Low 9.5-13.5 [facility] Platelets Auto (Bld) [#/Vol] on 07-18-2024 Platelets (Bld) [#/Vol] Platelets [#/volume] in Blood by Automated count 150-450 [facility] RBC Auto (Bld) [#/Vol]on RBC (Bld) [#/Vol] Erythrocytes [#/volu me] in Blood by Automated count Low 4.20-5.40 [facility] Basophils Auto (Bld) [#/Vol] on 07-12-2024 Basophils (Bld) [#/Vol] Automated basophil count 0.0-0.1 [facility] Basophils/100 WBC Auto (Bld) on 07-12-2024 Basophils/100 WBC (Bld) Automated basophil % 0.2-2.0 [facility] Eosinophils/100 WBC Auto (Bl d)on 07-12-2024 Eosinophils/100 WBC (Bld) Automated eosinophil % 0.9-7.0 [facility] Erythrocyte distribution wid th Auto (RBC) [Ratio]on 07-12-2024 Erythrocyte distribution width (RBC) [Ratio] Erythrocyte distribution width [Ratio] by Automated count 11.0-15.0 [facility] Estimated glomerular filtrat ion rate (GFR) non- Americanon 07-12-2024 GFR/1.73 sq M.predicted among non-blacks MDRD (S/P/Bld) [Vol rate/Area] Estimated glomerular filtration rate (GFR) non- Low >=60 mL/min/1.73m 2 [facility] Hematocrit Auto (Bld) [Volum e fraction]on 07-12-2024 Hematocrit (Bld) [Volume fraction] Hematocrit [Volume Fraction] of Blood by Automated count Low 36.0-48.0 [facility] Hemoglobin [Mass/volume] in Bloodon 07-12-2024 Hemoglobin (Bld) [Mass/Vol] Hemoglobin [Mass/volume] in Blood Low 12.0-16.0 [facility] Laboratory - Chemistry and C hemistry - challengeon 07-12-2024 Calcium [Mass/Vol] 8.6 mg/dL 8.5-10.1 [facility] Chloride [Moles/Vol] 102 mmol/L 98-107 [facility] CO2 [Moles/Vol] 24.7 mmol/L 21.0-32.0 [facility] Creatinine [Mass/Vol] 1.94 mg/dL High 0.55-1.02 [facility] GFR/1.73 sq M.predicted MDRD (S/P/Bld) [Vol rate/Area] 31 mL/min/{1.73_m2} Low >=60 mL/min/1.73m 2 [facility] Glucose [Mass/Vol] 203 mg/dL High 74-106 [facility] Potassium [Moles/Vol] 4.6 mmol/L 3.5-5.1 [facility] Sodium [Moles/Vol] 137 mmol/L 136-145 [facility] Urea nitrogen [Mass/Vol] 24.0 mg/dL High 7.0-18.0 [facility] Urea nitrogen/Creatinine [Mass ratio] 12.4 mg/mg [facility] Laboratory - Hematology and Cell countson 07-12-2024 Immature granulocytes/100 WBC (Bld) 1.8 % High 0.0-0.5 [facility] Leukocytes [#/volume] correc chip for nucleated erythrocytes in Blood by Automated counon 07-12-2024 WBC corrected for nucl RBC Auto (Bld) [#/Vol] Leukocytes [#/volume] corrected for nucleated erythrocytes in Blood by Automated coun 4.0-11.0 [facility] Lymphocytes Auto (Bld) [#/Vo l]on 07-12-2024 Lymphocytes (Bld) [#/Vol] Lymphocytes [#/volume] in Blood by Automated count 1.2-3.8 [facility] Lymphocytes/100 WBC Auto (Bl d)on 07-12-2024 Lymphocytes/100 WBC (Bld) Lymphocytes/100 leukocytes in Blood by Automated count 20.5-60.0 [facility] MCH Auto (RBC) [Entitic mass ]on 07-12-2024 MCH (RBC) [Entitic mass] MCH [Entitic mass] by Automated count 26.7-34.0 [facility] MCHC Auto (RBC) [Mass/Vol]on 07-12-2024 MCHC (RBC) [Mass/Vol] MCHC [Mass/volume] by Automated count 29.9-35.2 [facility] MCV Auto (RBC) [Entitic vol] on 07-12-2024 MCV (RBC) [Entitic vol] MCV [Entitic volume] by Automated count 81.0-99.0 [facility] Monocytes Auto (Bld) [#/Vol] on 07-12-2024 Monocytes (Bld) [#/Vol] Automated blood monocyte count 0.3-0.8 [facility] Monocytes/100 WBC Auto (Bld) on 07-12-2024 Monocytes/100 WBC (Bld) Automated monocyte % 1.7-12.0 [facility] Neutrophils Auto (Bld) [#/Vo l]on 07-12-2024 Neutrophils (Bld) [#/Vol] Neutrophils [#/volume] in Blood by Automated count 1.4-6.5 [facility] Neutrophils/100 WBC Auto (Bl d)on 07-12-2024 Neutrophils/100 WBC (Bld) Automated neutrophil % 43.0-75.0 [facility] No Panel Informationon 07-12 Eosinophils # (Auto) 0.2 10 3/uL 0.0-0.7 [facility] Immature Granulocyte # (Auto) 0.13 10 3/uL High 0.00-0.03 [facility] Platelet mean volume Auto (B ld) [Entitic vol]on 07-12-2024 Platelet mean volume (Bld) [Entitic vol] Platelet mean volume [Entitic volume] in Blood by Automated count 9.5-13.5 [facility] Platelets Auto (Bld) [#/Vol] on 07-12-2024 Platelets (Bld) [#/Vol] Platelets [#/volume] in Blood by Automated count 150-450 [facility] RBC Auto (Bld) [#/Vol]on RBC (Bld) [#/Vol] Erythrocytes [#/volu me] in Blood by Automated count Low 4.20-5.40 [facility] Serum or plasma anion gap de terminationon 07-12-2024 Anion gap [Moles/Vol] Serum or plasma anion gap determination [facility] ANION GAPon 07-11-2024 Anion gap [Moles/Vol] 10.0 mmol/L Normal 8.0-16.0 [facility] Comment on above: Result Comment: ANIO N GAP = Sodium -(Chloride + CO2) Performed By: #### P OCGL #### [facility] [address] [place] [address] Anion Gapon 07-11-2024 Anion gap [Moles/Vol] 10 mmol/L 8.0 - 16.0 meq/L [facility] Comment on above: ANION GAP = Sodium - (Chloride + CO2) Performed at [facility] [address] [place] [address] BASIC METABOL PANELon 2024 Calcium [Mass/Vol] 8.9 mg/dL Normal 8.8-10.2 [facility] Comment on above: Performed By: #### P OCGL #### [facility] [address] [place] [address] CO2 [Moles/Vol] 22 mmol/L Normal 22-29 [facility] Comment on above: Performed By: #### P OCGL #### [facility] [address] [address] Creatinine [Mass/Vol] 1.0 mg/dL High 0.5-0.9 [facility] Comment on above: Performed By: #### P OCGL #### [facility] [address] [place] [address] Glucose [Mass/Vol] 166 mg/dL High 74-109 [facility] Comment on above: Performed By: #### P OCGL #### [facility] [address] [place] [address] Urea nitrogen [Mass/Vol] 16 mg/dL Normal 8-23 [facility] Comment on above: Performed By: #### P OCGL #### [facility] [address] [place] [address] Chloride [Moles/Vol] 103 mmol/L Normal 98-111 [facility] Comment on above: Performed By: #### P OCGL #### [facility] [address] [place] [address] Potassium [Moles/Vol] 4.7 mmol/L Normal 3.5-5.2 [facility] Comment on above: Result Comment: Low level specimen hemolysis is present as indicated by the interference index on the Yamilet analyzer. ??The reported K+ level may be falsely increased. If clinically warranted, recollection of the specimen is suggested. Performed By: #### P OCGL #### [facility] [address] [place] [address] Sodium [Moles/Vol] 135 mmol/L Normal 135-145 [facility] Comment on above: Performed By: #### P OCGL #### [facility] [address] [place] [address] Basic metabolic 2000 panelon 07-11-2024 Calcium [Mass/Vol] 8.9 mg/dL 8.8 - 10. 2 mg/dL [facility] Comment on above: Performed at [facility] [address] [place] [address] Chloride [Moles/Vol] 103 mmol/L 98 - 11 1 meq/L [facility] CO2 [Moles/Vol] 22 mmol/L 22 - 29 meq/L [facility] Creatinine [Mass/Vol] 1.0 mg/dL High 0.5 - 0.9 mg/dL [facility] Glucose [Mass/Vol] 166 mg/dL High 74 - 109 mg/dL [facility] Interpretation and review of laboratory results Abnormal [facility] Potassium [Moles/Vol] 4.7 mmol/L 3.5 - 5.2 meq/L [facility] Comment on above: Low level specimen h emolysis is present as indicated by the interference index on the Yamilet analyzer. The reported K+ level may be falsely increased. If clinically warranted, recollection of the specimen is suggested. Sodium [Moles/Vol] 135 mmol/L 135 - 145 meq/L [employer] [facility] [place] Urea nitrogen [Mass/Vol] 16 mg/dL 8 - 23 mg/dL [employer] [facility] [place] GFR, ESTIMATEDon 07-11-2024 GFR/1.73 sq M.predicted MDRD (S/P/Bld) [Vol rate/Area] 62 mL/min/{1.73_m2} Normal >60 [facility] Comment on above: Pediatric calculator [...] that affects renal tubular secretion. Performed at [facility] [place] [address] Result Comment: Pedi atric calculator link [email or web address]://www.kidney.org/professionals/kdoqi/gfr_calculatorped [...] secretion. Performed By: #### P OCGL #### [facility] [address] [place] [address] GLUCOSE POCon 07-11-2024 Glucose [Mass/Vol] 177 mg/dL High 70-108 [facility] [employer] [facility] Comment on above: Performed at [facility] [address] [place] [address] Performed By: #### P OCGL #### [employer] [address] [place], [place] [id number] Glucose Auto test strip (Bld ) [Mass/Vol]on 07-11-2024 Interpretation and review of laboratory results Abnormal [facility] [employer] [facility] HGB,HCTon 07-11-2024 Hematocrit (Bld) [Volume fraction] 33.4 % Low 37.0-47.0 [facility] [employer] [facility] Comment on above: Performed at [facility] [address] [place] [address] Performed By: #### P OCGL #### [facility] [address] [place] [address] Hemoglobin (Bld) [Mass/Vol] 10.8 g/dL Low 12.0-16.0 [facility] Comment on above: Performed By: #### P OCGL #### [employer] [facility] [address] [place] [address] Hemoglobin and Hematocrit pa bhavna (Bld)on 07-11-2024 Interpretation and review of laboratory results Abnormal [facility] No Panel Informationon 07-11 [facility] ANION GAPon 07-10-2024 Anion gap [Moles/Vol] 8.0 mmol/L Normal 8.0-16.0 [facility] Comment on above: Result Comment: ANIO N GAP = Sodium -(Chloride + CO2) Performed By: #### P OCGL #### [facility] [address] [place] [address] Anion Gapon 07-10-2024 Anion gap [Moles/Vol] 8 mmol/L 8.0 - 16.0 meq/L [facility] Comment on above: ANION GAP = Sodium - (Chloride + CO2) Performed at [facility] [address] [place] [address] BASIC METABOL PANELon 2024 Calcium [Mass/Vol] 8.8 mg/dL Normal 8.8-10.2 [facility] Comment on above: Performed By: #### P OCGL #### [facility] [address] [place] [address] CO2 [Moles/Vol] 26 mmol/L Normal 22-29 [facility] Comment on above: Performed By: #### P OCGL #### [facility] [address] [place] [address] Creatinine [Mass/Vol] 1.1 mg/dL High 0.5-0.9 [facility] Comment on above: Performed By: #### P OCGL #### [facility] [address] [place] [address] Glucose [Mass/Vol] 198 mg/dL High 74-109 [facility] Comment on above: Performed By: #### P OCGL #### [facility] [address] [place] [address] Urea nitrogen [Mass/Vol] 24 mg/dL High 8-23 [facility] Comment on above: Performed By: #### P OCGL #### [facility] [address] [place] [address] Chloride [Moles/Vol] 101 mmol/L Normal 98-111 [facility] Comment on above: Performed By: #### P OCGL #### [facility] [employer] [facility] [address] [place] [address] Potassium [Moles/Vol] 4.6 mmol/L Normal 3.5-5.2 [facility] Comment on above: Performed By: #### P OCGL #### [facility] [employer] [facility] [address] [place] [address] Sodium [Moles/Vol] 135 mmol/L Normal 135-145 [facility] Comment on above: Performed By: #### P OCGL #### [facility] [employer] [address] [address] Basic metabolic 2000 panelon 07-10-2024 Calcium [Mass/Vol] 8.8 mg/dL 8.8 - 10. 2 mg/dL [facility] Comment on above: Performed at [facility] [address] [place] [address] Chloride [Moles/Vol] 101 mmol/L 98 - 11 1 meq/L [facility] CO2 [Moles/Vol] 26 mmol/L 22 - 29 meq/L [facility] Creatinine [Mass/Vol] 1.1 mg/dL High 0.5 - 0.9 mg/dL [facility] Glucose [Mass/Vol] 198 mg/dL High 74 - 109 mg/dL [facility] Potassium [Moles/Vol] 4.6 mmol/L 3.5 - 5.2 meq/L [facility] Sodium [Moles/Vol] 135 mmol/L 135 - 145 meq/L [facility] Urea nitrogen [Mass/Vol] 24 mg/dL High 8 - 23 mg/dL [employer] [facility] [place] GFR, ESTIMATEDon 07-10-2024 GFR/1.73 sq M.predicted MDRD (S/P/Bld) [Vol rate/Area] 56 mL/min/{1.73_m2} Abnormal >60 [facility] Comment on above: Pediatric calculator link [...] that affects renal tubular secretion. Performed at [facility] [address] [place] [address] Result Comment: Pedi atric calculator link https://www.kidney.org/professionals/kdoqi/gfr_calculatorped [...] secretion. Performed By: #### P OCGL #### [employer] [address] [place] [address] GLUCOSE POCon 07-10-2024 Glucose [Mass/Vol] 267 mg/dL High 70-108 [facility] Comment on above: Performed at [facility] [address] [place] [address] Performed By: #### P OCGL #### [employer] [address] [place] [address] Glucose [Mass/Vol] 154 mg/dL High 70-108 [facility] Comment on above: Performed at [facility] [address] [place] [address] Performed By: #### P OCGL #### [employer] [address] [place] [address] Glucose [Mass/Vol] 302 mg/dL High 70-108 [facility] Comment on above: Performed at [facility] [address] [place] [address] Performed By: #### P OCGL #### [facility] [place] [address] Glucose [Mass/Vol] 205 mg/dL High 70-108 [facility] Comment on above: Performed at [facility] [address] [place] [address] Performed By: #### P OCGL #### [place] [address] Glucose Auto test strip (Bld ) [Mass/Vol]on 07-10-2024 Interpretation and review of laboratory results Abnormal [facility] Interpretation and review of laboratory results Abnormal [facility] Interpretation and review of laboratory results Abnormal [facility] Interpretation and review of laboratory results Abnormal [facility] HGB,HCTon 07-10-2024 Hematocrit (Bld) [Volume fraction] 32.2 % Low 37.0-47.0 [facility] Comment on above: Performed at [facility] [address] [place] [address] Performed By: #### P OCGL #### [place] [address] Hemoglobin (Bld) [Mass/Vol] 10.0 g/dL Low 12.0-16.0 [facility] Comment on above: Performed By: #### P OCGL #### [place] [address] Hemoglobin and Hematocrit pa bhavna (Bld)on 07-10-2024 Hemoglobin (Bld) [Mass/Vol] 10 g/dL Low [facility] Interpretation and review of laboratory results Abnormal [facility] No Panel Informationon 07-10 Interpretation and review of laboratory results Abnormal [facility] ANION GAPon 07-09-2024 Anion gap [Moles/Vol] 10.0 mmol/L Normal 8.0-16.0 [facility] Comment on above: Result Comment: ANIO N GAP = Sodium -(Chloride + CO2) Performed By: #### P OCGL #### [facility] [address] [place] [address] Anion Gapon 07-09-2024 Anion gap [Moles/Vol] 10 mmol/L 8.0 - 16.0 meq/L [facility] Comment on above: ANION GAP = Sodium - (Chloride + CO2) Performed at [facility] [address] [place] [address] BASIC METABOL PANELon 2024 Calcium [Mass/Vol] 8.3 mg/dL Low 8.8-10.2 [facility] Comment on above: Performed By: #### P OCGL #### [facility] [address] [place] [address] CO2 [Moles/Vol] 23 mmol/L Normal 22-29 [facility] Comment on above: Performed By: #### P OCGL #### [facility] [address] [place] [address] Creatinine [Mass/Vol] 1.1 mg/dL High 0.5-0.9 [facility] Comment on above: Performed By: #### P OCGL #### [facility] [address] [place] [address] Glucose [Mass/Vol] 197 mg/dL High 74-109 [facility] Comment on above: Performed By: #### P OCGL #### [facility] [address] [place] [address] Urea nitrogen [Mass/Vol] 21 mg/dL Normal 8-23 [facility] Comment on above: Performed By: #### P OCGL #### [facility] [address] [place] [address] Chloride [Moles/Vol] 103 mmol/L Normal 98-111 [facility] Comment on above: Performed By: #### P OCGL #### [facility] [address] [place] [address] Potassium [Moles/Vol] 5.8 mmol/L High 3.5-5.2 [facility] Comment on above: Performed By: #### P OCGL #### [facility] [address] [place] [address] Sodium [Moles/Vol] 136 mmol/L Normal 135-145 [facility] Comment on above: Performed By: #### P OCGL #### [facility] [address] [place] [address] Basic metabolic 2000 panelon 07-09-2024 Calcium [Mass/Vol] 8.3 mg/dL Low 8.8 - 10. 2 mg/dL [facility] [place] Comment on above: Performed at [facility] [address] [place] [address] Chloride [Moles/Vol] 103 mmol/L 98 - 11 1 meq/L [facility] CO2 [Moles/Vol] 23 mmol/L 22 - 29 meq/L [facility] [place] Creatinine [Mass/Vol] 1.1 mg/dL High 0.5 - 0.9 mg/dL [facility] [place] Glucose [Mass/Vol] 197 mg/dL High 74 - 109 mg/dL [facility] [place] Potassium [Moles/Vol] 5.8 mmol/L High 3.5 - 5.2 meq/L [facility] Sodium [Moles/Vol] 136 mmol/L 135 - 145 meq/L [facility] Urea nitrogen [Mass/Vol] 21 mg/dL 8 - 23 mg/dL [facility] [place] GFR, ESTIMATEDon 07-09-2024 GFR/1.73 sq M.predicted MDRD (S/P/Bld) [Vol rate/Area] 56 mL/min/{1.73_m2} Abnormal >60 [facility] Comment on above: Pediatric calculator link https://www.kidney.org/professionals/kdoqi/gfr_calculatorped [...] that affects renal tubular secretion. Performed at [facility] [address] [place] [address] Result Comment: Pedi atric calculator link https://www.kidney.org/professionals/kdoqi/gfr_calculatorped [...] secretion. Performed By: #### P OCGL #### [place] [address] GLUCOSE POCon 07-09-2024 Glucose [Mass/Vol] 211 mg/dL High 70-108 [facility] Comment on above: Performed at [facility] [place] [address] Performed By: #### P OCGL #### [place] [address] Glucose [Mass/Vol] 212 mg/dL High 70-108 [facility] Comment on above: Performed at [facility] [address] [place] [address] Performed By: #### P OCGL #### [place] [address] Glucose [Mass/Vol] 169 mg/dL High 70-108 [facility] Comment on above: Performed at [facility] [address] [place] [address] Performed By: #### P OCGL #### [place] [address] Glucose [Mass/Vol] 229 mg/dL High 70-108 [facility] Comment on above: Performed at [facility] [address] [place] [address] Performed By: #### P OCGL #### [place] [address] Glucose [Mass/Vol] 203 mg/dL High 70-108 [facility] Comment on above: Performed at [facility] [address] [place] [address] Performed By: #### P OCGL #### [place] [address] HGB,HCTon 07-09-2024 Hematocrit (Bld) [Volume fraction] 36.7 % Low 37.0-47.0 [facility] Comment on above: Performed at [facility] [address] [place] [address] Performed By: #### P OCGL #### [place] [address] Hemoglobin (Bld) [Mass/Vol] 11.9 g/dL Low 12.0-16.0 [facility] Comment on above: Performed By: #### P OCGL #### [facility] [address] [place] [address] No Panel Informationon 07-09 Interpretation and review of laboratory results Abnormal [facility] POTASSIUMon 07-09-2024 Potassium [Moles/Vol] 4.7 mmol/L Normal 3.5-5.2 [facility] Comment on above: Performed By: #### K P #### [facility] [address] [place] [address] Potassiumon 07-09-2024 Potassium [Moles/Vol] 4.7 mmol/L 3.5 - 5.2 meq/L [facility] Comment on above: Performed at [facility] [address] [place] [address] GLUCOSE POCon 07-08-2024 Glucose [Mass/Vol] 266 mg/dL High 70-108 [facility] Comment on above: Performed at [facility] [address] [place] [address] Performed By: #### P OCGL #### [facility] [place] [address] Glucose [Mass/Vol] 120 mg/dL High 70-108 [facility] Comment on above: Performed at [facility] [address] [place] [address] Performed By: #### P OCGL #### [facility] [address] [place] [address] Glucose [Mass/Vol] 105 mg/dL Normal 70-108 [facility] Comment on above: Performed at [facility] [address] [place] [address] Performed By: #### P OCGL #### [facility] [address] [place] [address] Glucose [Mass/Vol] 136 mg/dL High 70-108 [facility] Comment on above: Performed at [facility] [address] [place] [address] Performed By: #### P OCGL #### [facility] [address] [place] [address] Glucose Auto test strip (Bld ) [Mass/Vol]on 07-08-2024 Interpretation and review of laboratory results Abnormal [facility] Interpretation and review of laboratory results Abnormal [facility] Interpretation and review of laboratory results Abnormal [facility] XR LUMBAR SPINE 1 VWon 07-08 [...] Boo Headley MD 07/08/24 Final result Normal [facility] XR Lumbar spine Single viewo n 07-08-2024 1. Evidence of posterior fusion at L4-L5. Please refer to operative report for further details. This report has been created using voice recognition software. It may contain minor errors which are inherent in voice recognition technology. Electronically signed by Dr. Jerrod Betts [facility] Sivakumar Betts MD - 07/08/2024 PROCEDURE: XR [...] technology. Electronically signed by Dr. Jerrod Betts [facility] Radiology Study observation (narrative) [facility] Intraoperative appearance of the lumbar spine. This report has been created using voice recognition software. It may contain minor errors which are inherent in voice recognition technology. Electronically signed by Dr. Boo Headley [facility] MOBILE LATERAL LUMBA R SPINE: CLINICAL INFORMATION: surgery. L3-L5 decompression. L4-L5- fusion COMPARISON: No prior study. TECHNIQUE: A single lateral mobile view of the lumbar spine was obtained For localization purposes. FINDINGS: 2 spinal needles are present posteriorly directed at the L4 and L5 levels. [facility] Boo Headley MD - 07/08/2024 MOBILE LATERAL [...] technology. Electronically signed by Dr. Boo Headley [facility] Radiology Study observation (narrative) [facility] XR Lumbar spine Single viewO rdered By: Sivakumar Betts on 07-08-2024 [facility] Work Phone: XR Lumbar spine Single viewO rdered By: Boo Headley on 07-08-2024 [facility] Work Phone: ANION GAPon 07-07-2024 Anion gap [Moles/Vol] 14.0 mmol/L Normal 8.0-16.0 [facility] Comment on above: Result Comment: ANIO N GAP = Sodium -(Chloride + CO2) Performed By: #### B MP, EGFR1, CBCND, ANION #### [facility] [address] [place] [address] Anion Gapon 03-15-2025 Anion gap [Moles/Vol] 14 mmol/L 8.0 - 16.0 meq/L [facility] Comment on above: ANION GAP = Sodium - (Chloride + CO2) Performed at [facility] [address] [place] [address] BASIC METABOL PANELon 2024 CO2 [Moles/Vol] 21 mmol/L Low 22-29 [facility] Comment on above: Performed By: #### B MP, EGFR1, CBCND, ANION #### [facility] [address] [place] [address] Creatinine [Mass/Vol] 1.0 mg/dL High 0.5-0.9 [facility] Comment on above: Performed By: #### B MP, EGFR1, CBCND, ANION #### [address] [address] Glucose [Mass/Vol] 172 mg/dL High 74-109 [facility] Comment on above: Performed By: #### B MP, EGFR1, CBCND, ANION #### [address] [address] Urea nitrogen [Mass/Vol] 33 mg/dL High 8-23 [facility] Comment on above: Performed By: #### B MP, EGFR1, CBCND, ANION #### [address] [address] Calcium [Mass/Vol] 9.2 mg/dL Normal 8.8-10.2 [facility] Comment on above: Performed By: #### B MP, EGFR1, CBCND, ANION #### [address] [address] Chloride [Moles/Vol] 103 mmol/L Normal 98-111 [facility] Comment on above: Performed By: #### B MP, EGFR1, CBCND, ANION #### [address] [address] Potassium [Moles/Vol] 4.4 mmol/L Normal 3.5-5.2 [facility] Comment on above: Result Comment: Low level specimen hemolysis is present as indicated by the interference index on the Yamilet analyzer. ??The reported K+ level may be falsely increased. If clinically warranted, recollection of the specimen is suggested. Performed By: #### B MP, EGFR1, CBCND, ANION #### [facility] [address] [place] [address] Sodium [Moles/Vol] 138 mmol/L Normal 135-145 [facility] Comment on above: Performed By: #### B MP, EGFR1, CBCND, ANION #### [facility] [address] [place] [address] Basic metabolic 2000 panelon 07-07-2024 Calcium [Mass/Vol] 9.2 mg/dL 8.8 - 10. 2 mg/dL [facility] Comment on above: Performed at [facility] [address] [place] [address] Chloride [Moles/Vol] 103 mmol/L 98 - 11 1 meq/L [facility] [place] CO2 [Moles/Vol] 21 mmol/L Low 22 - 29 meq/L [facility] [place] Creatinine [Mass/Vol] 1.0 mg/dL High 0.5 - 0.9 mg/dL [facility] [place] Glucose [Mass/Vol] 172 mg/dL High 74 - 109 mg/dL [facility] Interpretation and review of laboratory results Abnormal [facility] Potassium [Moles/Vol] 4.4 mmol/L 3.5 - 5.2 meq/L [facility] Comment on above: Low level specimen h emolysis is present as indicated by the interference index on the Yamilet analyzer. The reported K+ level may be falsely increased. If clinically warranted, recollection of the specimen is suggested. Sodium [Moles/Vol] 138 mmol/L 135 - 145 meq/L [facility] [place] Urea nitrogen [Mass/Vol] 33 mg/dL High 8 - 23 mg/dL [facility] [facility] [place] CBCon 07-07-2024 Erythrocyte distribution width (RBC) [Entitic vol] 40.3 fL 35.0 - 45.0 fL [facility] [place] Platelets (Bld) [#/Vol] 236 10*3/uL [facility] [facility] [place] RBC (Bld) [#/Vol] 4.73 10*6/uL [facility] WBC (Bld) [#/Vol] 8.6 10*3/uL [facility] CBC NO DIFFERENTIALon 2024 Erythrocyte distribution width (RBC) [Ratio] 12.6 % Normal 11.5-14.5 [facility] Comment on above: Performed By: #### B MP, EGFR1, CBCND, ANION #### [place] [address] Hematocrit (Bld) [Volume fraction] 41.6 % Normal 37.0-47.0 [facility] Comment on above: Performed By: #### B MP, EGFR1, CBCND, ANION #### [place] [address] Hemoglobin (Bld) [Mass/Vol] 13.5 g/dL Normal 12.0-16.0 [facility] Comment on above: Performed By: #### B MP, EGFR1, CBCND, ANION #### [place] [address] MCH (RBC) [Entitic mass] 28.5 pg Normal 26.0-33.0 [facility] Comment on above: Performed By: #### B MP, EGFR1, CBCND, ANION #### [place] [address] MCHC (RBC) [Mass/Vol] 32.5 g/dL Normal 32.2-35.5 [facility] Comment on above: Performed By: #### B MP, EGFR1, CBCND, ANION #### [place] [address] MCV (RBC) [Entitic vol] 87.9 fL Normal 81.0-99.0 [facility] Comment on above: Performed By: #### B MP, EGFR1, CBCND, ANION #### [place] [address] PLATELET 236 thou/mm3 Normal 130-400 [facility] Comment on above: Performed By: #### B MP, EGFR1, CBCND, ANION #### [facility] [employer] [address] [place] [address] Platelet mean volume (Bld) [Entitic vol] 9.6 fL Normal 9.4-12.4 [facility] Comment on above: Performed at [facility] [address] [place] [address] Performed By: #### B MP, EGFR1, CBCND, ANION #### [employer] [address] [place] [address] RBC 4.73 mill/mm3 Normal 4.20-5.40 [facility] Comment on above: Performed By: #### B MP, EGFR1, CBCND, ANION #### [employer] [facility] [address] [place] [address] RDW-SD 40.3 fL Normal 35.0-45.0 [facility] Comment on above: Performed By: #### B MP, EGFR1, CBCND, ANION #### [employer] [address] [place] [address] WBC 8.6 thou/mm3 Normal 4.8-10.8 [facility] Comment on above: Performed By: #### B MP, EGFR1, CBCND, ANION #### [employer] [address] [place] [address] GFR, ESTIMATEDon 07-07-2024 GFR/1.73 sq M.predicted MDRD (S/P/Bld) [Vol rate/Area] 62 mL/min/{1.73_m2} Normal >60 [facility] Comment on above: Pediatric calculator [...] that affects renal tubular secretion. Performed [place] [address] Result Comment: Pedi atric calculator link https://www.kidney.org/professionals/kdoqi/gfr_calculatorped [...] #### B MP, EGFR1, CBCND, ANION #### [place] [address] GLUCOSE POCon 07-07-2024 Glucose [Mass/Vol] 271 mg/dL High 70-108 [facility] Comment on above: Performed at [facility] [address] [place] [address] Performed By: #### P OCGL #### [place] [address] Glucose [Mass/Vol] 188 mg/dL High 70-108 [facility] Comment on above: Performed at [facility] [address] [place] [address] Performed By: #### P OCGL #### [place] [address] Glucose [Mass/Vol] 174 mg/dL High 70-108 [facility] Comment on above: Performed at [facility] [address] [place] [address] Performed By: #### P OCGL #### [address] [address] Glucose [Mass/Vol] 76 mg/dL Normal 70-108 [facility] Comment on above: Performed at [facility] [address] [place] [address] Performed By: #### P OCGL #### [address] [address] Glomerular Filtration Rate, Estimatedon 07-07-2024 [employer] [facility] [place] Glucose Auto test strip (Bld ) [Mass/Vol]on 07-07-2024 Interpretation and review of laboratory results Abnormal [facility] Interpretation and review of laboratory results Abnormal [facility] Interpretation and review of laboratory results Abnormal [facility] No Panel Informationon 07-07 [facility] XR CHEST (2 VW)on 07-07-2024 [...] Kj Epps MD 07/07/24 Final result Normal [facility] XR Chest 2 Viewson Impression: No acute cardiopulmonary disease. This document has been electronically signed by: Kj Epps MD on 07/07/2024 02:22 AM [facility] Chest X-ray: 2 views . Indication: Pulmonary congestion. Comparison: None Findings: The lungs are well aerated. No focal consolidation, or pleural effusion. The cardiac silhouette is normal in size. Bony thorax is grossly intact. Bilateral shoulder arthroplasty. External metallic density versus surgical hardware projects on the lower cervical spine. [facility] Kj Epps MD - [...] Kj Epps MD on 07/07/2024 02:22 AM [facility] Radiology Study observation (narrative) [facility] XR Chest 2 ViewsOrdered By: Kj Epps on 07-07-2024 [facility] ANION GAPon 07-06-2024 Anion gap [Moles/Vol] 14.0 mmol/L Normal 8.0-16.0 [facility] Comment on above: Result Comment: ANIO N GAP = Sodium -(Chloride + CO2) Performed By: #### P OCGL #### [place] [address] APTTon 07-06-2024 aPTT Coag (Bld) [Time] 29.5 s Normal 22.0-38.0 [facility] Comment on above: Result Comment: Ther apeutic Heparin Reference Range= 60-95 seconds (corresponds to 0.3 to 0.7 u/mL Anti-Xa factor activity) Performed By: #### P OCGL #### [place] [address] Anion Gapon 07-06-2024 Anion gap [Moles/Vol] 14 mmol/L 8.0 - 16.0 meq/L [facility] Comment on above: ANION GAP = Sodium - (Chloride + CO2) [place] [address] CBC WITH DIFFERENTIALon 06-23 ABS BASOPHILS 0.0 thou/mm3 Normal 0.0-0.1 [facility] Comment on above: Performed By: #### P OCGL #### [address] [address] ABS EOSINOPHILS 0.0 thou/mm3 Normal 0.0-0.4 [facility] Comment on above: Performed By: #### P OCGL #### [address] [address] ABS IMMATURE GRANS (IG) 0.05 thou/mm3 Normal 0.00-0.07 [facility] Comment on above: Performed By: #### P OCGL #### [address] [address] ABS LYMPHOCYTES 2.8 thou/mm3 Normal 1.0-4.8 [facility] Comment on above: Performed By: #### P OCGL #### [facility] [address] [place] [address] ABS MONOCYTES 0.8 thou/mm3 Normal 0.4-1.3 [facility] Comment on above: Performed By: #### P OCGL #### [address] [address] ABS NEUTROPHILS 7.9 thou/mm3 High 1.8-7.7 [facility] Comment on above: Performed By: #### P OCGL #### [address] [address] Basophils/100 WBC (Bld) 0.2 % Normal [facility] Comment on above: Performed By: #### P OCGL #### [address] [address] Eosinophils/100 WBC (Bld) 0.3 % Normal [facility] Comment on above: Performed By: #### P OCGL #### [address] [address] Erythrocyte distribution width (RBC) [Ratio] 12.5 % Normal 11.5-14.5 [facility] Comment on above: Performed By: #### P OCGL #### [address] [address] Hematocrit (Bld) [Volume fraction] 42.6 % Normal 37.0-47.0 [facility] Comment on above: Performed By: #### P OCGL #### [address] [address] Hemoglobin (Bld) [Mass/Vol] 13.8 g/dL Normal 12.0-16.0 [facility] Comment on above: Performed By: #### P OCGL #### [address] [address] IMMATURE GRANS (IG) 0.4 % Normal [facility] Comment on above: Performed By: #### P OCGL #### [address] [address] Lymphocytes/100 WBC (Bld) 24.0 % Normal [facility] Comment on above: Performed By: #### P OCGL #### [address] [address] MCH (RBC) [Entitic mass] 28.6 pg Normal 26.0-33.0 [facility] Comment on above: Performed By: #### P OCGL #### [address] [address] MCHC (RBC) [Mass/Vol] 32.4 g/dL Normal 32.2-35.5 [facility] Comment on above: Performed By: #### P OCGL #### [address] [address] MCV (RBC) [Entitic vol] 88.2 fL Normal 81.0-99.0 [facility] Comment on above: Performed By: #### P OCGL #### [address] [address] Monocytes/100 WBC (Bld) 6.8 % Normal [facility] Comment on above: Performed By: #### P OCGL #### [address] [address] Neutrophils/100 WBC (Bld) 68.3 % Normal [facility] Comment on above: Performed By: #### P OCGL #### [address] [address] NRBC 0 /100 wbc Normal [facility] Comment on above: Performed By: #### P OCGL #### [address] [address] PLATELET 274 thou/mm3 Normal 130-400 [facility] Comment on above: Performed By: #### P OCGL #### [address] [address] Platelet mean volume (Bld) [Entitic vol] 9.7 fL Normal 9.4-12.4 [facility] Comment on above: Performed By: #### P OCGL #### [address] [address] RBC 4.83 mill/mm3 Normal 4.20-5.40 [facility] Comment on above: Performed By: #### P OCGL #### [address] [address] RDW-SD 39.9 fL Normal 35.0-45.0 [facility] Comment on above: Performed By: #### P OCGL #### [address] [address] WBC 11.6 thou/mm3 High 4.8-10.8 [facility] Comment on above: Performed By: #### P OCGL #### [facility] [address] [place] [address] CBC with Auto Differentialon 07-06-2024 Basophils (Bld) [...] [facility] Comment on above: Performed at [facility] [address] [place] [address] Platelets (Bld) [#/Vol] 274 10*3/uL [facility] RBC (Bld) [#/Vol] 4.83 10*6/uL [facility] WBC (Bld) [#/Vol] 11.6 10*3/uL High [facility] COMP. METABOLIC PANELon 06-23 Albumin [Mass/Vol] 4.3 g/dL Normal 3.4-4.9 [facility] Comment on above: Performed By: #### P OCGL #### [employer] [address] [place] [address] ALP [Catalytic activity/Vol] 65 U/L Normal 35-104 [facility] Comment on above: Performed By: #### P OCGL #### [employer] [address] [place] [id number] ALT [Catalytic activity/Vol] 24 U/L Normal 10-35 [facility] Comment on above: Performed By: #### P OCGL #### [employer] [address] [address] AST [Catalytic activity/Vol] 23 U/L Normal 10-35 [facility] Comment on above: Performed By: #### P OCGL #### [facility] [employer] [address] [address] Bilirubin [Mass/Vol] 0.4 mg/dL Normal 0.3-1.2 [facility] Comment on above: Performed By: #### P OCGL #### [facility] [employer] [address] [address] Calcium [Mass/Vol] 9.6 mg/dL Normal 8.8-10.2 [facility] Comment on above: Performed By: #### P OCGL #### [facility] [employer] [address] [address] CO2 [Moles/Vol] 26 mmol/L Normal 22-29 [facility] Comment on above: Performed By: #### P OCGL #### [facility] [employer] [address] [address] Creatinine [Mass/Vol] 1.3 mg/dL High 0.5-0.9 [facility] Comment on above: Performed By: #### P OCGL #### [facility] [employer] [address] [address] Glucose [Mass/Vol] 259 mg/dL High 74-109 [facility] Comment on above: Performed By: #### P OCGL #### [facility] [employer] [address] [address] Protein [Mass/Vol] 7.2 g/dL Normal 6.4-8.3 [facility] Comment on above: Performed By: #### P OCGL #### [employer] [address] [place] [address] Urea nitrogen [Mass/Vol] 43 mg/dL High 8-23 [facility] Comment on above: Performed By: #### P OCGL #### [facility] [employer] [address] [place] [address] Chloride [Moles/Vol] 96 mmol/L Low 98-111 [facility] Comment on above: Performed By: #### P OCGL #### [employer] [address] [address] POTASSIUM WITH REFLEX MG 5.0 meq/L Normal 3.5-5.2 [facility] Comment on above: Result Comment: Low level specimen hemolysis is present as indicated by the interference index on the Yamilet analyzer. ??The reported K+ level may be falsely increased. If clinically warranted, recollection of the specimen is suggested. Performed By: #### P OCGL #### [facility] [employer] [address] [address] Sodium [Moles/Vol] 136 mmol/L Normal 135-145 [facility] Comment on above: Performed By: #### P OCGL #### [address] [address] Comprehensive metabolic 2000 panelon 07-06-2024 Albumin BCG dye [Mass/Vol] 4.3 g/dL 3.4 - 4.9 g/dL [facility] ALP [Catalytic activity/Vol] 65 U/L 35 - 104 U/L [facility] ALT No additional P-5'-P [Catalytic activity/Vol] 24 U/L 10 - 35 U/L [facility] Comment on above: Performed at [facility] [address] [place] [address] AST [Catalytic activity/Vol] 23 U/L 10 - 35 U/L [facility] Bilirubin [Mass/Vol] 0.4 mg/dL 0.3 - 1 .2 mg/dL [facility] Calcium [Mass/Vol] 9.6 mg/dL 8.8 - 10. 2 mg/dL [facility] Chloride [Moles/Vol] 96 mmol/L Low 98 - 11 1 meq/L [facility] CO2 [Moles/Vol] 26 mmol/L 22 - 29 meq/L [facility] Creatinine [Mass/Vol] 1.3 mg/dL High 0.5 - 0.9 mg/dL [facility] Glucose [Mass/Vol] 259 mg/dL High 74 - 109 mg/dL [facility] Potassium [Moles/Vol] 5.0 mmol/L 3.5 - 5.2 meq/L [facility] Comment on above: Low level specimen h emolysis is present as indicated by the interference index on the Yamilet analyzer. The reported K+ level may be falsely increased. If clinically warranted, recollection of the specimen is suggested. Protein [Mass/Vol] 7.2 g/dL 6.4 - 8.3 g/dL [employer] [facility] [place] Sodium [Moles/Vol] 136 mmol/L 135 - 145 meq/L [employer] [facility] [place] Urea nitrogen [Mass/Vol] 43 mg/dL High 8 - 23 mg/dL [employer] [facility] [place] EKG 12 leadOrdered By: Kp Rodriges on 07-06-2024 Atrial Rate 68 BPM [employer] [facility] [place] Work Phone: P [place] 58 degrees [employer] [facility] [place] Work Phone: P-R Interval 146 ms [employer] [facility] [place] Work Phone: Q-T Interval 422 ms [employer] [facility] [place] Work Phone: QRS Duration 82 ms [employer] [facility] [place] Work Phone: QTc Calculation (Bazett) 448 ms [employer] [facility] [place] Work Phone: R [place] 67 degrees [employer] [facility] [place] Work Phone: T [place] 66 degrees [employer] [facility] [place] Work Phone: Ventricular Rate 68 BPM [employer] [facility] Work Phone: [employer] [facility] [place] Work Phone: EKG 12 leadon 07-06-2024 Normal sinus rhythm Possible Left atrial enlargement ST & T wave abnormality, consider anterior ischemia Abnormal ECG No previous ECGs available Clinical correlation is indicated Confirmed by Kp Rodriges ([id number]) on 07/06/2024 11:10:52 PM [facility] STR MUSE Kp Rodriges MD - 07/06/2024 Normal sinus rhythm Possible Left atrial enlargement ST & T wave abnormality, consider anterior ischemia Abnormal ECG No previous ECGs available Clinical correlation is indicated Confirmed by Kp Rodriges ([id number]) on 07/06/2024 11:10:52 PM [facility] EKG 12-LEADon 07-06-2024 EKG 12-LEAD 68 68 146 82 [phone] Normal sinus rhythm Possible Left atrial enlargement ST & T wave abnormality, consider anterior ischemia Abnormal ECG No previous ECGs available Clinical correlation is indicated Confirmed by Kp Rodriges ([id number]) on 07/06/2024 11:10:52 PM [email or web address]&Date= 06-07-2024&Time=20%3a11 %3a37%3a00&TestType=ECG &Site=3&OutputType=PDF& Ext=PDF Normal [facility] GFR, ESTIMATEDon 07-06-2024 GFR/1.73 sq M.predicted MDRD (S/P/Bld) [Vol rate/Area] 46 mL/min/{1.73_m2} Abnormal >60 [facility] Comment on above: Pediatric calculator [...] that affects renal tubular secretion. Performed at [employer] [address] [place] [address] Result Comment: Soniya atric calculator link [email or web address] [...] secretion. Performed By: #### P OCGL #### [employer] [address] [place], [place] [id number] GLUCOSE POCon 07-06-2024 Glucose [Mass/Vol] 280 mg/dL High 70-108 [facility] [employer] Comment on above: Performed at [facility] [address] [place] [address] Performed By: #### P OCGL #### [facility] [employer] [address] [place], [place] [id number] Glucose Auto test strip (Bld ) [Mass/Vol]on 07-06-2024 Interpretation and review of laboratory results Abnormal [facility] INR Coag (PPP) [Relative jackie e]on 07-06-2024 [facility] [employer] No Panel Informationon 07-06 Interpretation and review of laboratory results Abnormal [facility] [employer] PROTHOMBIN TIMEon 07-06-2024 INR Coag (Bld) [Relative time] 1.02 {INR} Normal 0.85-1.13 [facility] Comment on above: Result Comment: ---- -----INDICATION INR Reference Range DVT, PE, AF, AMI, tissue heart valve 2.0 to 3.0 Mechanical prosthetic valves 2.5 to 3.5 Performed By: #### P OCGL #### [facility] [employer] [address] [place] [address] Protime-INRon 07-06-2024 INR Coag (PPP) [Relative time] 1.02 {INR} 0.85 - 1.13 [facility] [employer] [facility] Comment on above: ---------INDICATION- INR Reference Range DVT, PE, AF, AMI, tissue heart valve 2.0 to 3.0 Mechanical prosthetic valves 2.5 to 3.5 Performed at [facility] [place] [address] aPTT Coag (Bld) [Time]on aPTT Coag (PPP) [Time] 29.5 s [facility] [employer] Comment on above: Therapeutic Heparin Reference Range= 60-95 seconds (corresponds to 0.3 to 0.7 u/mL Anti-Xa factor activity) Performed at [facility] [address] [place] [id number] [place] [address] Estimated glomerular filtrat ion rate (GFR) non- Americanon 06-27-2024 GFR/1.73 sq M.predicted among non-blacks MDRD (S/P/Bld) [Vol rate/Area] Estimated glomerular filtration rate (GFR) non- Low >=60 mL/min/1.73m 2 [facility] - Chemistry and C hemistry - challengeon 06-27-2024 Calcium [Mass/Vol] 9.8 mg/dL 8.5-10.1 [facility] Chloride [Moles/Vol] 101 mmol/L 98-107 [facility] CO2 [Moles/Vol] 28.6 mmol/L 21.0-32.0 [facility] Creatinine [Mass/Vol] 1.41 mg/dL High 0.55-1.02 [facility] GFR/1.73 sq M.predicted MDRD (S/P/Bld) [Vol rate/Area] 45 mL/min/{1.73_m2} Low >=60 mL/min/1.73m 2 [facility] Glucose [Mass/Vol] 66 mg/dL Low 74-106 [facility] Potassium [Moles/Vol] 5.1 mmol/L 3.5-5.1 [facility] Sodium [Moles/Vol] 139 mmol/L 136-145 [facility] Urea nitrogen [Mass/Vol] 29.0 mg/dL High 7.0-18.0 [facility] Urea nitrogen/Creatinine [Mass ratio] 20.6 mg/mg [facility] Bilirubin Ql (U) LARGE Abnormal NEGATIVE [facility] Glucose (U) [Mass/Vol] Negative NEGATIVE [facility] Ketones Ql (U) TRACE mg/dL Abnormal NEGATIVE [facility] pH (U) 5.5 [pH] 5.0-9.0 [facility] Specific gravity (U) [Rel density] 1.025 1.005-1.025 [facility] Urobilinogen Qn (U) 0.2 {Nela'U}/dL 0.2-1.0 [facility] Laboratory - Specimen inform ationon 06-27-2024 Appearance (U) CLEAR CLEAR [facility] Color (U) YELLOW YELLOW [facility] Laboratory - Urinalysison Leukocyte esterase Test strip Ql (U) Negative NEGATIVE [facility] Nitrite Ql (U) Negative NEGATIVE [facility] Protein Ql (U) Negative NEG/TRACE [facility] No Panel Informationon 06-27 Urine Microscopic Review NO [facility] Urine Occult Blood Negative NEGATIVE [facility] Serum or plasma anion gap de terminationon 06-27-2024 Anion gap [Moles/Vol] Serum or plasma anion gap determination [facility] No Panel Informationon 06-01 Miscellaneous Test COMMENT . [facility] Comment on above: Test Ordered: [id number] Aerobic Cult, Extended IncubAerobic Cult, Extended Incub [...] RRifampin STetracycline STrimethoprim/Sulfa SVancomycin SPerformed at: - [facility] [id number] Director: Noam Haskins PhD, Phone: [phone] Basophils Auto (Bld) [#/Vol] on 05-31-2024 Basophils (Bld) [#/Vol] Automated basophil count 0.0-0.1 [facility] Basophils/100 WBC Auto (Bld) on 05-31-2024 Basophils/100 WBC (Bld) Automated basophil % 0.2-2.0 [facility] Eosinophils/100 WBC Auto (Bl d)on 05-31-2024 Eosinophils/100 WBC (Bld) Automated eosinophil % 0.9-7.0 [facility] Erythrocyte distribution wid th Auto (RBC) [Ratio]on 05-31-2024 Erythrocyte distribution width (RBC) [Ratio] Erythrocyte distribution width [Ratio] by Automated count 11.0-15.0 [facility] Hematocrit Auto (Bld) [Volum e fraction]on 05-31-2024 Hematocrit (Bld) [Volume fraction] Hematocrit [Volume Fraction] of Blood by Automated count 36.0-48.0 [facility] Hemoglobin [Mass/volume] in Bloodon 05-31-2024 Hemoglobin (Bld) [Mass/Vol] Hemoglobin [Mass/volume] in Blood 12.0-16.0 [facility] - Hematology and Cell countson 05-31-2024 ESR (Bld) [Velocity] 7 mm/h <=30 [facility] Immature granulocytes/100 WBC (Bld) 0.2 % 0.0-0.5 [facility] Leukocytes [#/volume] correc chip for nucleated erythrocytes in Blood by Automated counon 05-31-2024 WBC corrected for nucl RBC Auto (Bld) [#/Vol] Leukocytes [#/volume] corrected for nucleated erythrocytes in Blood by Automated coun 4.0-11.0 [facility] Lymphocytes Auto (Bld) [#/Vo l]on 05-31-2024 Lymphocytes (Bld) [#/Vol] Lymphocytes [#/volume] in Blood by Automated count 1.2-3.8 [facility] Lymphocytes/100 WBC Auto (Bl d)on 05-31-2024 Lymphocytes/100 WBC (Bld) Lymphocytes/100 leukocytes in Blood by Automated count 20.5-60.0 [facility] MCH Auto (RBC) [Entitic mass ]on 05-31-2024 MCH (RBC) [Entitic mass] MCH [Entitic mass] by Automated count 26.7-34.0 [facility] MCHC Auto (RBC) [Mass/Vol]on 05-31-2024 MCHC (RBC) [Mass/Vol] MCHC [Mass/volume] by Automated count 29.9-35.2 [facility] MCV Auto (RBC) [Entitic vol] on 05-31-2024 MCV (RBC) [Entitic vol] MCV [Entitic volume] by Automated count 81.0-99.0 [facility] Monocytes Auto (Bld) [#/Vol] on 05-31-2024 Monocytes (Bld) [#/Vol] Automated blood monocyte count 0.3-0.8 [facility] Monocytes/100 WBC Auto (Bld) on 05-31-2024 Monocytes/100 WBC (Bld) Automated monocyte % 1.7-12.0 [facility] Neutrophils Auto (Bld) [#/Vo l]on 05-31-2024 Neutrophils (Bld) [#/Vol] Neutrophils [#/volume] in Blood by Automated count 1.4-6.5 [facility] Neutrophils/100 WBC Auto (Bl d)on 05-31-2024 Neutrophils/100 WBC (Bld) Automated neutrophil % 43.0-75.0 [facility] No Panel Informationon 05-31 C-Reactive Protein, Quantitative <0.50 mg/dL <=0.50 [facility] Eosinophils # (Auto) 0.1 10 3/uL 0.0-0.7 [facility] Immature Granulocyte # (Auto) 0.01 10 3/uL 0.00-0.03 [facility] Platelet mean volume Auto (B ld) [Entitic vol]on 05-31-2024 Platelet mean volume (Bld) [Entitic vol] Platelet mean volume [Entitic volume] in Blood by Automated count Low 9.5-13.5 [facility] Platelets Auto (Bld) [#/Vol] on 05-31-2024 Platelets (Bld) [#/Vol] Platelets [#/volume] in Blood by Automated count 150-450 [facility] RBC Auto (Bld) [#/Vol]on RBC (Bld) [#/Vol] Erythrocytes [#/volu me] in Blood by Automated count 4.20-5.40 [facility] Basophils Auto (Bld) [#/Vol] on 12-27-2023 Basophils (Bld) [#/Vol] 0.1 10 3/uL 0.0-0.1 [facility] Basophils/100 WBC Auto (Bld) on 12-27-2023 Basophils/100 WBC (Bld) 1.0 % 0.2-2.0 [facility] Cholesterol in LDL Calc [Mas s/Vol]on 12-27-2023 Cholesterol in LDL [Mass/Vol] 63.0 mg/dL [facility] Comment on above: <100 mg/dl [id number] 0-129 mg/dl NEAR OR ABOVE [id number] mg/dl BORDERLINE [id number] mg/dl HIGH>190 mg/dl VERY HIGH Cholesterol in VLDL Calc [Ma ss/Vol]on 12-27-2023 Cholesterol in VLDL [Mass/Vol] 45.8 mg/dL [facility] Eosinophils/100 WBC Auto (Bl d)on 12-27-2023 Eosinophils/100 WBC (Bld) 8.3 % High 0.9-7.0 [facility] Erythrocyte distribution wid th Auto (RBC) [Ratio]on 12-27-2023 Erythrocyte distribution width (RBC) [Ratio] 11.9 % 11.0-15.0 [facility] Estimated glomerular filtrat ion rate (GFR) non- Americanon 12-27-2023 GFR/1.73 sq M.predicted among non-blacks MDRD (S/P/Bld) [Vol rate/Area] 47 mL/min/{1.73_m2} Low >=60 [facility] Globulin Calc (S) [Mass/Vol] on 12-27-2023 Globulin (S) [Mass/Vol] 3.2 g/dL [facility] Glucose mean value [Mass/vol ume] in Blood Estimated from glycated hemoglobinon 12-27-2023 Average glucose Estimated from glycated hemoglobin (Bld) [Mass/Vol] 143 mg/dL [facility] Hematocrit Auto (Bld) [Volum e fraction]on 12-27-2023 Hematocrit (Bld) [Volume fraction] 39.7 % 36.0-48.0 [facility] Hemoglobin [Mass/volume] in Bloodon 12-27-2023 Hemoglobin (Bld) [Mass/Vol] 12.9 g/dL 12.0-16.0 [facility] Laboratory - Chemistry and C hemistry - challengeon 12-27-2023 Albumin [Mass/Vol] 3.7 g/dL 3.4-5.0 [facility] ALP [Catalytic activity/Vol] 61 U/L 46-116 [facility] ALT [Catalytic activity/Vol] 36 U/L 14-59 [facility] AST [Catalytic activity/Vol] 24 U/L 15-37 [facility] Bilirubin [Mass/Vol] 0.6 mg/dL 0.2-1.0 [facility] Calcium [Mass/Vol] 9.2 mg/dL 8.5-10.1 [facility] Chloride [Moles/Vol] 101 mmol/L 98-107 [facility] Cholesterol [Mass/Vol] 146 mg/dL <=200 [facility] Cholesterol in HDL [Mass/Vol] 38 mg/dL Low 40-60 [facility] Comment on above: > or =60 mg/dl - LOW CARDIOVASCULAR RISK<40 mg/dl - HIGH CARDIOVASCULAR RISK CO2 [Moles/Vol] 26.8 mmol/L 21.0-32.0 [facility] Creatinine [Mass/Vol] 1.17 mg/dL High 0.55-1.02 [facility] GFR/1.73 sq M.predicted MDRD (S/P/Bld) [Vol rate/Area] 56 mL/min/{1.73_m2} Low >=60 [facility] Glucose [Mass/Vol] 138 mg/dL High 74-106 [facility] Potassium [Moles/Vol] 4.5 mmol/L 3.5-5.1 [facility] Protein [Mass/Vol] 6.9 g/dL 6.4-8.2 [facility] Sodium [Moles/Vol] 138 mmol/L 136-145 [facility] Triglyceride [Mass/Vol] 229 mg/dL High <=150 [facility] TSH Qn 0.834 m[IU]/L 0.358-3.740 [facility] Urea nitrogen [Mass/Vol] 23.0 mg/dL High 7.0-18.0 [facility] Urea nitrogen/Creatinine [Mass ratio] 19.7 mg/mg [facility] Laboratory - Hematology and Cell countson 12-27-2023 HbA1c (Bld) [Mass fraction] 6.6 % High 4.5-6.2 [facility] Comment on above: ADA RECOMMENDED LIMI T 4.0 - 6.0ADA THERAPEUTIC TARGET < 7.0ACTION SUGGESTED> 7.0 Immature granulocytes/100 WBC (Bld) 0.4 % 0.0-0.5 [facility] Leukocytes [#/volume] correc chip for nucleated erythrocytes in Blood by Automated counon 12-27-2023 WBC corrected for nucl RBC Auto (Bld) [#/Vol] 5.2 10 3/uL 4.0-11.0 [facility] Lymphocytes Auto (Bld) [#/Vo l]on 12-27-2023 Lymphocytes (Bld) [#/Vol] 2.2 10 3/uL 1.2-3.8 [facility] Lymphocytes/100 WBC Auto (Bl d)on 12-27-2023 Lymphocytes/100 WBC (Bld) 42.1 % 20.5-60.0 [facility] MCH Auto (RBC) [Entitic mass ]on 12-27-2023 MCH (RBC) [Entitic mass] 28.5 pg 26.7-34.0 [facility] MCHC Auto (RBC) [Mass/Vol]on 12-27-2023 MCHC (RBC) [Mass/Vol] 32.5 g/dL 29.9-35.2 [facility] MCV Auto (RBC) [Entitic vol] on 12-27-2023 MCV (RBC) [Entitic vol] 87.8 fL 81.0-99.0 [facility] Monocytes Auto (Bld) [#/Vol] on 12-27-2023 Monocytes (Bld) [#/Vol] 0.3 10 3/uL 0.3-0.8 [facility] Monocytes/100 WBC Auto (Bld) on 12-27-2023 Monocytes/100 WBC (Bld) 6.4 % 1.7-12.0 [facility] Neutrophils Auto (Bld) [#/Vo l]on 12-27-2023 Neutrophils (Bld) [#/Vol] 2.2 10 3/uL 1.4-6.5 [facility] Neutrophils/100 WBC Auto (Bl d)on 12-27-2023 Neutrophils/100 WBC (Bld) 41.8 % Low 43.0-75.0 [facility] No Panel Informationon 12-26 Eosinophils # (Auto) 0.4 10 3/uL 0.0-0.7 [facility] Immature Granulocyte # (Auto) 0.02 10 3/uL 0.00-0.03 [facility] Platelet mean volume Auto (B ld) [Entitic vol]on 12-27-2023 Platelet mean volume (Bld) [Entitic vol] 9.6 fL 9.5-13.5 [facility] Platelets Auto (Bld) [#/Vol] on 12-27-2023 Platelets (Bld) [#/Vol] 190 10 3/uL 150-450 [facility] RBC Auto (Bld) [#/Vol]on RBC (Bld) [#/Vol] 4.52 10 6/uL 4.20-5.40 [facility] Serum or plasma albumin/glob ulin mass ratioon 12-27-2023 Albumin/Globulin [Mass ratio] 1.2 {ratio} [facility] Serum or plasma anion gap de terminationon 12-27-2023 Anion gap [Moles/Vol] 14.7 mmol/L [facility] Serum or plasma total choles terol/high density lipoprotein (HDL) cholesterol mass desiree 12-27-2023 Cholesterol.total/Ch olesterol in HDL [Mass ratio] 3.8 {ratio} [facility] Comment on above: 3.3 - [...] BERNY QUISPE Date: 2022-08-24 07:19 Normal [facility] CBC AUTO DIFFon 03-30-2022 BASO # 0.0 103/ul Normal 0.0-0.1 [facility] Comment on above: Performed By: #### C BC #### [facility] [address] [place] [address] Dr. Rc Foster Basophils/100 WBC (Bld) 0.4 % Normal 0.2-2.0 [facility] Comment on above: Performed By: #### C BC #### [facility] [address] [place] [address] Dr. Rc Foster EO # 0.3 103/ul Normal 0.0-0.7 [facility] Comment on above: Performed By: #### C BC #### [facility] [address] [place] [address] Dr. Rc Foster Eosinophils/100 WBC (Bld) 4.9 % Normal 0.9-7.0 [facility] Comment on above: Performed By: #### C BC #### [facility] [address] [place] [address] Dr. Rc Foster Erythrocyte distribution width (RBC) [Ratio] 12.2 % Normal 11.0-15.0 [facility] Comment on above: Performed By: #### C BC #### [facility] [address] [place] [address] Dr. Rc Foster Hematocrit (Bld) [Volume fraction] 39.8 % Normal 36.0-48.0 [facility] Comment on above: Performed By: #### C BC #### [facility] [address] [place] [address] Dr. Rc Foster Hemoglobin (Bld) [Mass/Vol] 13.1 g/dL Normal 12.0-16.0 [facility] Comment on above: Performed By: #### C BC #### [facility] [address] [place] [address] Dr. Rc Foster IG # 0.02 10e3/ul Normal 0.00-0.03 [facility] Comment on above: Performed By: #### C BC #### [facility] [address] [place] [address] Dr. Rc Foster IG % 0.4 % Normal 0.0-0.5 [facility] Comment on above: Performed By: #### C BC #### [facility] [address] [place] [address] Dr. Rc Foster LYMPH # 2.1 103/ul Normal 1.2-3.8 [facility] Comment on above: Performed By: #### C BC #### [facility] [address] [place] [address] Dr. Rc Foster Lymphocytes/100 WBC (Bld) 37.1 % Normal 20.5-60.0 [facility] Comment on above: Performed By: #### C BC #### [facility] [address] [place] [address] Dr. Rc Foster MANUAL DIFF REQ NO Normal [facility] Comment on above: Performed By: #### C BC #### [facility] [address] [place] [address] Dr. Rc Foster MCH (RBC) [Entitic mass] 28.7 pg Normal 26.7-34.0 [facility] Comment on above: Performed By: #### C BC #### [facility] [address] [address] [address] Rc Foster MCHC (RBC) [Mass/Vol] 32.9 g/dL Normal 29.9-35.2 [facility] Comment on above: Performed By: #### C BC #### [facility] [address] [place] [address] Dr. Rc Foster MCV (RBC) [Entitic vol] 87.1 fL Normal 81.0-99.0 [facility] Comment on above: Performed By: #### C BC #### [facility] [address] [place] [address] Dr. Rc Foster MONO # 0.4 103/ul Normal 0.3-0.8 [facility] Comment on above: Performed By: #### C BC #### [facility] [address] [place] [address] Dr. Rc Foster Monocytes/100 WBC (Bld) 6.7 % Normal 1.7-12.0 [facility] Comment on above: Performed By: #### C BC #### [facility] [address] [place] [address] Dr. Rc Foster NEUT # 2.9 103/ul Normal 1.4-6.5 [facility] Comment on above: Performed By: #### C BC #### [facility] [address] [place] [address] Dr. Rc Foster Neutrophils/100 WBC (Bld) 50.5 % Normal 43.0-75.0 [facility] [facility] Comment on above: Performed By: #### C BC #### [facility] [address] [place] [address] Dr. Rc Foster Platelet mean volume (Bld) [Entitic vol] 9.7 fL Normal 9.5-13.5 [facility] Comment on above: Performed By: #### C BC #### [facility] [address] [place] [address] Dr. Rc Foster PLT 189 103/ul Normal 150-450 [facility] Comment on above: Performed By: #### C BC #### [facility] [address] [address] [address] Rc Foster RBC 4.57 106/ul Normal 4.20-5.40 [facility] Comment on above: Performed By: #### C BC #### [facility] [address] [address] [address] Rc Foster WBC 5.7 103/ul Normal 4.0-11.0 [facility] Comment on above: Performed By: #### C BC #### [facility] [address] [address] [address] Rc Foster GLYCOHEMOGLOBIN A1Con 2021 ADA RECOMMENDATION SEE BELOW Normal [facility] Comment on above: Result Comment: ADA RECOMMENDED LIMIT 4.0 - 6.0 ADA THERAPEUTIC TARGET < 7.0 ACTION SUGGESTED > 7.0 Performed By: #### A 1C #### [facility] [address] [address] [address] Rc Foster Glucose [Mass/Vol] 143 mg/dL Normal [facility] Comment on above: Performed By: #### A 1C #### [facility] [address] [address] [address] Rc Foster HbA1c (Bld) [Mass fraction] 6.6 % Critically high 4.5-6.2 [facility] Comment on above: Performed By: #### A 1C #### [facility] [address] [address] [address] Rc Foster LIPID PROFILEon 03-30-2022 CHOL-HDL RATIO NORM SEE BELOW Normal [facility] Comment on above: Result Comment: 3.3 - 4.4 LOW RISK 4.4 - 7.1 AVERAGE RISK 7.1 - 11.0 MODERATE RISK >11.0 HIGH RISK Performed By: #### T SH, CMP, LIPID ####[facility] [address] [address]Dr. Rc Foster Cholesterol [Mass/Vol] 184 mg/dL Normal <=200 [facility] Comment on above: Performed By: #### T SH, CMP, LIPID ####[facility] [address] [phone]. Rc Foster Cholesterol in HDL [Mass/Vol] 42 mg/dL Normal 40-60 [facility] Comment on above: Performed By: #### T SH, CMP, LIPID ####[facility] [address] [phone]. Siribreanna Foster Cholesterol in LDL [Mass/Vol] 87.0 mg/dL Normal [facility] Comment on above: Performed By: #### T SH, CMP, LIPID ####[facility] [address] [phone]. Siribreanna Foster Cholesterol.total/Ch olesterol in HDL [Mass ratio] 4.4 {ratio} Normal [facility] Comment on above: Performed By: #### T MARY JANE, CMP, LIPID ####[facility] [address] [phone]. Siribreanna Foster HDL NORMAL > or = 60 mg/dl - LO W CARDIOVASCULAR RISK <40 mg/dl - HIGH CARDIOVASCULAR RISK Normal [facility] Comment on above: Performed By: #### T MARY JANE, CMP, LIPID ####[facility] [address] [address]Dr. Rc Foster LDL CALC NORMAL SEE BELOW Normal [facility] Comment on above: Result Comment: <100 mg/dl OPTIMAL 100 - 129 mg/dl NEAR OR ABOVE OPTIMAL 130 - 159 mg/dl BORDERLINE HIGH 160 - 189 mg/dl HIGH >190 mg/dl VERY HIGH Performed By: #### T MARY JANE, CMP, LIPID ####[facility] [address] [phone]. Siribreanna Foster Triglyceride [Mass/Vol] 275 mg/dL Critically high <=150 [facility] Comment on above: Performed By: #### T SH, CMP, LIPID ####[facility] [address] [phone]. Rc Foster VLDL CALC 55.0 mg/dL Normal [facility] Comment on above: Performed By: #### T SH, CMP, LIPID ####[facility] [address] [address]Dr. Rc Foster PROF 14(COMP METB)on 022 Albumin [Mass/Vol] 4.0 g/dL Normal 3.4-5.0 [facility] Comment on above: Performed By: #### T SH, CMP, LIPID ####[facility] [address] [address]Dr. Rc Foster Albumin/Globulin [Mass ratio] 1.1 {ratio} Normal [facility] Comment on above: Performed By: #### T SH, CMP, LIPID ####[facility] [address] [address]Dr. Rc Foster ALP [Catalytic activity/Vol] 71 U/L Normal 46-116 [facility] Comment on above: Performed By: #### T SH, CMP, LIPID ####[facility] [address] [place], [place] [address]Dr. Rc Foster ALT [Catalytic activity/Vol] 29 U/L Normal 14-59 [facility] Comment on above: Performed By: #### T SH, CMP, LIPID ####[facility] [address] [place], [place] [address]Dr. Rc Foster Anion gap [Moles/Vol] 13.2 mmol/L Normal [facility] Comment on above: Performed By: #### T SH, CMP, LIPID ####[facility] [address] [place], [place] [address]Dr. Rc Foster AST [Catalytic activity/Vol] 17 U/L Normal 15-37 [facility] Comment on above: Performed By: #### T SH, CMP, LIPID ####[facility] [address] [place], [place] [address]Dr. Rc Foster Bilirubin [Mass/Vol] 0.6 mg/dL Normal 0.2-1.0 [facility] Comment on above: Performed By: #### T SH, CMP, LIPID ####[facility] [address] [place], [place] [address]Dr. Rc Foster Calcium [Mass/Vol] 9.0 mg/dL Normal 8.5-10.1 [facility] Comment on above: Performed By: #### T SH, CMP, LIPID ####[facility] [address] [address]Dr. Rc Foster Chloride [Moles/Vol] 102 mmol/L Normal 98-107 [facility] Comment on above: Performed By: #### T SH, CMP, LIPID ####[facility] [address] [address]Dr. Rc Foster CO2 [Moles/Vol] 27.3 mmol/L Normal 21.0-32.0 [facility] Comment on above: Performed By: #### T SH, CMP, LIPID ####[facility] [address] [address]Dr. Rc Foster Creatinine [Mass/Vol] 1.00 mg/dL Normal 0.55-1.02 [facility] Comment on above: Performed By: #### T SH, CMP, LIPID ####[facility] [address] [place], [place] [address]Dr. Rc Foster EGFR-AF GIBRALTARIAN >60 Normal >=60 [facility] Comment on above: Performed By: #### T SH, CMP, LIPID ####[facility] [address] [place], [place] [address]Dr. Rc Foster EGFR-NON AF GIBRALTARIAN 56 mL/min/1.73m2 Critically low >=60 [facility] Comment on above: Performed By: #### T SH, CMP, LIPID ####[facility] [address] [address]Dr. Rc Foster Globulin (S) [Mass/Vol] 3.5 g/dL Normal [facility] Comment on above: Performed By: #### T SH, CMP, LIPID ####[facility] [address] [address]Dr. Rc Foster Glucose [Mass/Vol] 159 mg/dL Critically high 74-106 [facility] Comment on above: Performed By: #### T SH, CMP, LIPID ####[facility] [address] [address]Dr. Rc Foster Potassium [Moles/Vol] 4.5 mmol/L Normal 3.5-5.1 [facility] Comment on above: Performed By: #### T MARY JANE CMP, LIPID ####[facility] [address] [address]Dr. Rc Foster Protein [Mass/Vol] 7.5 g/dL Normal 6.4-8.2 [facility] Comment on above: Performed By: #### T MARY JANE CMP, LIPID ####[facility] [address] [phone]. Rc Foster Sodium [Moles/Vol] 138 mmol/L Normal 136-145 [facility] Comment on above: Performed By: #### T MARY JANE CMP, LIPID ####[facility] [address] [address]Dr. Rc Foster Urea nitrogen [Mass/Vol] 23.0 mg/dL Critically high 7.0-18.0 [facility] Comment on above: Performed By: #### T MARY JANE CMP, LIPID ####[facility] [address] [phone]. Rc Foster Urea nitrogen/Creatinine [Mass ratio] 23.0 mg/mg Normal [facility] Comment on above: Performed By: #### T MARY JANE CMP, LIPID ####[facility] [address] [phone]. Rc Foster TSHon 03-30-2022 TSH 2.807 uIU/mL Normal 0.358-3.740 [facility] Comment on above: Performed By: #### T MARY JANE, CMP, LIPID ####[facility] [address] [phone]. Rc Foster US THYROIDon 03-30-2022 US THYROID [...] by: BERNY QUISPE Date: 2022-03-30 11:03 Normal [facility] MAMM SCREEN 3D LEX CADon 03-19-2022 MG MAMM SCREEN 3D LEX CAD Patient: CARROLL FUENTES Exam Date: 03/19/2022 : 1960 Gender:F Ordering : DR ROBERT VILLASENOR D.O. Admission #: [id number] Family : Order #: [id number] CLICK HERE TO VIEW EXAM RADIOLOGY REPORT [...] No Treatments None Family Cancers None LOCATION: [facility] BREAST COMPOSITION: Scattered areas fibroglandular [...] M.D. on 03/23/2022 at 11:59 Normal [facility] CBC AUTO DIFFon 11-27-2021 BASO # 0.0 103/ul Normal 0.0-0.1 [facility] Comment on above: Performed By: #### C BC #### [facility] [address] [address] [address] Rc Foster Basophils/100 WBC (Bld) 0.7 % Normal 0.2-2.0 [facility] Comment on above: Performed By: #### C BC #### [facility] [address] [address] [address] Rc Foster EO # 0.6 103/ul Normal 0.0-0.7 [facility] Comment on above: Performed By: #### C BC #### [facility] [address] [address] [address] Rc Foster Eosinophils/100 WBC (Bld) 10.3 % Critically high 0.9-7.0 [facility] Comment on above: Performed By: #### C BC #### [facility] [address] [address] [address] Rc Foster Erythrocyte distribution width (RBC) [Ratio] 12.4 % Normal 11.0-15.0 [facility] Comment on above: Performed By: #### C BC #### [facility] [address] [address] [address] Rc Foster Hematocrit (Bld) [Volume fraction] 41.2 % Normal 36.0-48.0 [facility] Comment on above: Performed By: #### C BC #### [facility] [address] [address] [address] Rc Foster Hemoglobin (Bld) [Mass/Vol] 13.4 g/dL Normal 12.0-16.0 [facility] Comment on above: Performed By: #### C BC #### [facility] [address] [address] [address] Rc Foster IG # 0.01 10e3/ul Normal 0.00-0.03 [facility] Comment on above: Performed By: #### C BC #### [facility] [address] [place] [address] Dr. Rc Foster IG % 0.2 % Normal 0.0-0.5 [facility] Comment on above: Performed By: #### C BC #### [facility] [address] [place] [address] Dr. Rc Foster LYMPH # 2.3 103/ul Normal 1.2-3.8 [facility] Comment on above: Performed By: #### C BC #### [facility] [address] [place] [address] Dr. Rc Foster Lymphocytes/100 WBC (Bld) 40.6 % Normal 20.5-60.0 [facility] Comment on above: Performed By: #### C BC #### [facility] [address] [place] [address] Dr. Rc Foster MANUAL DIFF REQ NO Normal [facility] Comment on above: Performed By: #### C BC #### [facility] [address] [place] [address] Dr. Rc Foster MCH (RBC) [Entitic mass] 28.8 pg Normal 26.7-34.0 [facility] Comment on above: Performed By: #### C BC #### [facility] [address] [place] [address] Dr. Rc Foster MCHC (RBC) [Mass/Vol] 32.5 g/dL Normal 29.9-35.2 [facility] Comment on above: Performed By: #### C BC #### [facility] [address] [place] [address] Dr. Rc Foster MCV (RBC) [Entitic vol] 88.6 fL Normal 81.0-99.0 [facility] Comment on above: Performed By: #### C BC #### [facility] [address] [place] [address] Dr. Rc Foster MONO # 0.4 103/ul Normal 0.3-0.8 [facility] Comment on above: Performed By: #### C BC #### [facility] [address] [place] [address] Dr. Rc Foster Monocytes/100 WBC (Bld) 7.6 % Normal 1.7-12.0 [facility] Comment on above: Performed By: #### C BC #### [facility] [address] [address] [address] Rc Foster NEUT # 2.3 103/ul Normal 1.4-6.5 [facility] Comment on above: Performed By: #### C BC #### [facility] [address] [place] [address] Dr. Rc Foster Neutrophils/100 WBC (Bld) 40.6 % Critically low 43.0-75.0 [facility] Comment on above: Performed By: #### C BC #### [facility] [address] [place] [address] Dr. Rc Foster Platelet mean volume (Bld) [Entitic vol] 9.6 fL Normal 9.5-13.5 [facility] Comment on above: Performed By: #### C BC #### [facility] [address] [place] [address] Dr. Rc Foster PLT 194 103/ul Normal 150-450 [facility] Comment on above: Performed By: #### C BC #### [facility] [address] [place] [address] Dr. Rc Foster RBC 4.65 106/ul Normal 4.20-5.40 [facility] Comment on above: Performed By: #### C BC #### [facility] [address] [place] [address] Dr. Rc Foster WBC 5.5 103/ul Normal 4.0-11.0 [facility] Comment on above: Performed By: #### C BC #### [facility] [address] [place] [address] Dr. Rc Foster GLYCOHEMOGLOBIN A1Con 2021 ADA RECOMMENDATION SEE BELOW Normal [facility] Comment on above: Result Comment: ADA RECOMMENDED LIMIT 4.0 - 6.0 ADA THERAPEUTIC TARGET < 7.0 ACTION SUGGESTED > 7.0 Performed By: #### A 1C #### [facility] [address] [address] [address] Rc Foster Glucose [Mass/Vol] 131 mg/dL Normal [facility] Comment on above: Performed By: #### A 1C #### [facility] [address] [address] [address] Rc Foster HbA1c (Bld) [Mass fraction] 6.2 % Normal 4.5-6.2 [facility] Comment on above: Performed By: #### A 1C #### [facility] [address] [address] [address] Rc Foster PROF CHEM 8 (BAS METB)on Anion gap [Moles/Vol] 15.2 mmol/L Normal [facility] Comment on above: Performed By: #### T SH, BMP #### [facility] [address] [place] [address] Dr. Rc Foster Calcium [Mass/Vol] 8.5 mg/dL Normal 8.5-10.1 [facility] Comment on above: Performed By: #### T MARY JANE, BMP #### [facility] [address] [address] [address] Rc Foster Chloride [Moles/Vol] 100 mmol/L Normal 98-107 [facility] Comment on above: Performed By: #### T SH, BMP #### [facility] [address] [address] [address] Rc Foster CO2 [Moles/Vol] 26.6 mmol/L Normal 21.0-32.0 [facility] Comment on above: Performed By: #### T SH, BMP #### [facility] [address] [address] [address] Rc Foster Creatinine [Mass/Vol] 1.15 mg/dL Critically high 0.55-1.02 [facility] Comment on above: Performed By: #### T SH, BMP #### [facility] [address] [address] [address] Rc Foster EGFR-AF GIBRALTARIAN 58 mL/min/1.73m2 Critically low >=60 [facility] Comment on above: Performed By: #### T SH, BMP #### [facility] [address] [address] [address] Rc Foster EGFR-NON AF GIBRALTARIAN 48 mL/min/1.73m2 Critically low >=60 [facility] Comment on above: Performed By: #### T SH, BMP #### [facility] [address] [address] [address] Rc Foster Glucose [Mass/Vol] 211 mg/dL Critically high 74-106 [facility] Comment on above: Performed By: #### T SH, BMP #### [facility] [address] [place] [address] Dr. Rc Foster Potassium [Moles/Vol] 4.8 mmol/L Normal 3.5-5.1 [facility] Comment on above: Performed By: #### T SH, BMP #### [facility] [address] [place] [address] Dr. Rc Foster Sodium [Moles/Vol] 137 mmol/L Normal 136-145 [facility] Comment on above: Performed By: #### T SH, BMP #### [facility] [address] [place] [address] Dr. Rc Foster Urea nitrogen [Mass/Vol] 33.0 mg/dL Critically high 7.0-18.0 [facility] Comment on above: Performed By: #### T SH, BMP #### [facility] [address] [place] [address] Dr. Rc Foster Urea nitrogen/Creatinine [Mass ratio] 28.7 mg/mg Normal [facility] Comment on above: Performed By: #### T SH, BMP #### [facility] [address] [place] [address] Dr. Rc Foster TSHon 11-27-2021 TSH 0.744 uIU/mL Normal 0.358-3.740 [facility] Comment on above: Performed By: #### T SH, BMP #### [facility] [address] [place] [address] Dr. Rc Foster SYMPTOMATIC COVID-19 ANTIGEN on 10-28-2021 EUA Statement SEE BELOW Normal [facility] Comment on above: Result Comment: This [...] revoked sooner. Performed By: #### C VDAGS ####[facility] [address] [address]Dr. Rc Foster SARS-CoV-2 (COVID-19) RNA YARED+probe Ql (Unsp spec) Negative Normal NEGATIVE [facility] Comment on above: Performed By: #### C VDAGS ####[facility] [address] [address]Dr. Rc Foster GLYCOHEMOGLOBIN A1Con 2021 ADA RECOMMENDATION SEE BELOW Normal [facility] Comment on above: Result Comment: ADA RECOMMENDED LIMIT 4.0 - 6.0 ADA THERAPEUTIC TARGET < 7.0 ACTION SUGGESTED > 7.0 Performed By: #### A 1C #### [facility] [address] [place] [address] Dr. Rc Foster Glucose [Mass/Vol] 128 mg/dL Normal [facility] Comment on above: Performed By: #### A 1C #### [facility] [address] [place] [address] Dr. Rc Foster HbA1c (Bld) [Mass fraction] 6.1 % Normal 4.5-6.2 [facility] Comment on above: Performed By: #### A 1C #### [facility] [address] [place] [address] Dr. Rc Foster Discharge CCD Assessmenton 0 09-06-2020 Discharge CCD Assessment [facility] Patient: CARROLL FUENTES [address] [place], [place] [id number] MR#: [id number] DISCHARGE CCD ASSESSMENT : 58 Service Date: 09/06/20 1018 Discharge CCD Assessment Assessment Patient discharged home to continue exercises, pain medication, and wound care Electronically Signed eSign Date and Time Melyssa Flores 09/06/20 1019 Tera Hernandez MD Normal [facility] GLUCOSE METERon 09-06-2020 Glucose [Mass/Vol] 126 mg/dL High 70-99 [facility] Comment on above: Order Comment: CONSE RVATION Result Comment: Fast ing GLUCOSE reference range has been updated per (ADA) [place] Diabetes Association's recommendation. 07/18/2018 Performed By: #### L 500.54946 ####Test performed at: [place] [address] Glucose [Mass/Vol] 205 mg/dL High 70-99 [facility] Comment on above: Order Comment: CONSE RVATION Result Comment: Fast ing GLUCOSE reference range has been updated per (ADA) [place] Diabetes Association's recommendation. 07/18/2018 Insulin per sl scale Performed By: #### L 500.57863 #### Test performed at: [place] [address] Internal Med Progress Noteon 09-06-2020 Internal Med Progress Note [facility] Patient: CARROLL FUENTES [address] [place], [place] [id number] MR#: [id number] PROGRESS NOTE - Internal Medicine : 58 [...] Flanagan RES, Katarzyna MD 09/06/20 1134 Normal [facility] Orthopedic Progress Noteon 0 09-06-2020 Orthopedic Progress Note [facility] Patient: CARROLL FUENTES [facility] [place] [address] MR#: [id number] PROGRESS NOTE - Orthopedic : 58 Service [...] RN 09/06/20 1022 Tera Hernandez MD Normal [facility] Anesthesia Noteon 09-05-2020 Anesthesia Note [facility] Patient: CARROLL FUENTES [address] [place], [place] [id number] MR#: [id number] ANESTHESIA NOTE : Service Date: 09/05/20 0812 [...] pre-op Electronically Signed eSign Date and Time Krytsian Akers [employer] VICE PRESIDENT-EEG TECH 09/05/20 0813 Chu Glez MD Normal [facility] BASIC MET PANELon 09-05-2020 Anion gap [Moles/Vol] 12 mmol/L Normal 6-18 [facility] Comment on above: Performed By: #### L 500.25643, L500.78573 #### Test performed at: [address] [address] Calcium [Mass/Vol] 8.7 mg/dL Normal 8.5-10.1 [facility] Comment on above: Performed By: #### L 500.33440, L500.67522 #### Test performed at: [place] [address] [place] [address] Chloride [Moles/Vol] 101 mmol/L Normal 98-107 [facility] Comment on above: Performed By: #### L 500.50736, L500.00584 #### Test performed at: [address] [address] CO2 [Moles/Vol] 25 mmol/L Normal 21-32 [facility] Comment on above: Performed By: #### L 500.92053, L500.74861 #### Test performed at: [address] [address] Creatinine [Mass/Vol] 1.020 mg/dL Normal 0.550-1.020 [facility] Comment on above: Performed By: #### L 500.47868, L500.61230 #### Test performed at: [address] [address] Glucose [Mass/Vol] 264 mg/dL High 70-99 [facility] Comment on above: Result Comment: Fast ing GLUCOSE reference range has been updated per (ADA) [place] Diabetes Association's recommendation. 07/18/2018 Performed By: #### L 500.20481, L500.32889 #### Test performed at: [address] [address] OSM 289 mosm/kg Normal 270-300 [facility] Comment on above: Performed By: #### L 500.70675, L500.82501 #### Test performed at: [address] [address] Potassium [Moles/Vol] 4.5 mmol/L Normal 3.5-5.1 [facility] Comment on above: Performed By: #### L 500.22541, L500.49609 #### Test performed at: [address] [address] Sodium [Moles/Vol] 134 mmol/L Low 136-145 [facility] Comment on above: Performed By: #### L 500.00375, L500.00880 #### Test performed at: [address] [address] Urea nitrogen [Mass/Vol] 17 mg/dL Normal 7-18 [facility] Comment on above: Performed By: #### L 500.12888, L500.27041 #### Test performed at: [address] [address] GFR ESTIMATEon 09-05-2020 IF AMER > 60 Normal > 60 [facility] Comment on above: Result Comment: eGFR (Estimated GFR) Units of measure:mL/min/1.73 meters sq. *CALCULATION REVISED 02/11/2015;IDMS-traceable MDRD equation eGFR is derived from the reexpressed MDRD Study equation using the following parameters: serum creatinine, age, gender and race. An eGFR<60 mL/min/1.73m2 for >3 months is consistent with chronic kidney disease. Refer to KDOQI guidelines for clinical interpretation. Performed By: #### L 500.64023, L500.51970 #### Test performed at: [address] [address] IF non-AFR AMER 55 Low > 60 [facility] Comment on above: Performed By: #### L 500.13975, L500.40275 #### Test performed at: [address] [address] GLUCOSE METERon 09-05-2020 Glucose [Mass/Vol] 177 mg/dL High 70-99 [facility] Comment on above: Order Comment: CONSE RVATION Result Comment: Fast ing GLUCOSE reference range has been updated per (ADA) [place] Diabetes [employer]'s recommendation. 07/18/2018 Performed By: #### L 500.02100 #### Test performed at: [address] [address] Glucose [Mass/Vol] 310 mg/dL High 70-99 [facility] Comment on above: Result Comment: Fast ing GLUCOSE reference range has been updated per (ADA) [place] [employer]'s recommendation. 07/18/2018 Insulin per sl scale Performed By: #### L 500.59391 ####Test performed at: [address] [address] Glucose [Mass/Vol] 281 mg/dL High 70-99 [facility] Comment on above: Result Comment: Fast ing GLUCOSE reference range has been updated per (ADA) [place] [employer]'s recommendation. 07/18/2018 Insulin per sl scale Performed By: #### L 500.22243 #### Test performed at: [place] [address] Glucose [Mass/Vol] 105 mg/dL High 70-99 [facility] Comment on above: Result Comment: Fast ing GLUCOSE reference range has been updated per (ADA) [place] [employer]'s recommendation. 07/18/2018 Performed By: #### L 500.51247 #### Test performed at: [place] [address] HGB AND HCTon 09-05-2020 Hematocrit (Bld) [Volume fraction] 37.5 % Normal 36.0-48.0 [facility] Comment on above: Performed By: #### L 200.05773 #### Test performed at: [place] [address] Hemoglobin (Bld) [Mass/Vol] 12.5 g/dL Normal 12.0-15.0 [facility] Comment on above: Performed By: #### L 200.79813 #### Test performed at: [place] [address] Internal Med Progress Noteon 09-05-2020 Internal Med Progress Note [facility] Patient: CARROLL FUENTES [address] [place] [address] MR#: [id number] PROGRESS NOTE - Internal Medicine : 58 [...] input. Disc (more content not included)... Normal [facility] OT Therapy Recommendationson 09-05-2020 OT Therapy Recommendations [facility] Patient: CARROLL FUENTES [address] [place] [address] MR#: [id number] OT THERAPY RECOMMENDATIONS : 58 Service Date: 09/05/20 151 Therapy Recommendations Therapy Recommendations Recommendations OT evaluation completed. OT recommends HOME with FAmily assist. No further acute OT needs are indicated at this time. Electronically Signed eSign Date and Time Trupti Rojas OT 09/05/20 1512 Normal [facility] Orthopedic Progress Noteon 0 09-05-2020 Orthopedic Progress Note [facility] Patient: CARROLL FUENTES [address] [place], [place] [address] MR#: [id number] PROGRESS NOTE - Orthopedic : 58 Service [...] KHAN 09/05/20 1429 Tera Hernandez MD Normal [facility] PT Therapy Recommendationson 09-05-2020 PT Therapy Recommendations [facility] Patient: CARROLL FUENTES [address] [place] [address] MR#: [id number] PT THERAPY RECOMMENDATIONS : 58 Service Date: 09/05/20 0914 Therapy Recommendations Therapy Recommendations Recommendations PT eval complete. No further acute PT needs. Recommend d/c home /c family assist. Electronically Signed eSign Date and Time Tiffanie Bashir PT 09/05/20 0914 Normal [facility] z OT Inpatient Discharge Not juan 09-05-2020 z OT Inpatient Discharge Note [facility] Patient: CARROLL FUENTES [address] [place] [address] MR#: [id number] OT INPATIENT DISCHARGE NOTE : 58 Service [...] Time Trupti Rojas OT 09/05/20 1534 Normal [facility] z OT Inpatient Evaluationon 09-05-2020 z OT Inpatient Evaluation [facility] Patient: CARROLL FUENTES [address] [place] [address] MR#: [id number] OT INPATIENT EVALUATION : 58 Inpatient OT HPI Date of Service 09/05/20 Time In: 1401 Time Out: 1412 Total Treatment Time (Mins) 11 Visit Reason LATERAL RECESS STENOSIS W/ RADICULOPATHY Surgery Type/Date s/p L L4-5 LAmi, foraminotomy, decompression on 09.04.20/ Lumbar spine precautions Referral Date 09/04/20 Tx Diagnosis: LOW BACK PAIN Insurance Name [employer] [facility] Hospital Course 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 Objective Precautions Lumbar [...] Excellent Nader (more content not included)... Normal [facility] z PT Inpatient Discharge Not juan 09-05-2020 z PT Inpatient Discharge Note [facility] Patient: CARROLL FUENTES [facility] [place] [address] MR#: [id number] PT INPATIENT DISCHARGE NOTE : 58 Service [...] Time Tiffanie Bashir PT 09/05/20 1139 Normal [facility] z PT Inpatient Evaluationon 09-05-2020 z PT Inpatient Evaluation [facility] Patient: CARROLL FUENTES [address] [address] MR#: [id number] PT INPATIENT EVALUATION : 58 Service Date: 09/05/20 0928 Inpatient PT HPI Date of Service 09/05/20 Time In: 0845 Time Out: 0907 Total Treatment Time (Mins) 22 Room Number 624 Visit Reason LATERAL RECESS STENOSIS W/ RADICULOPATHY Surgery Type: L L4-5 lami, foraminotomy, decompression Surgery Date: 09/04/20 Referral Date 09/04/20 Tx Diagnosis: LOW BACK PAIN Insurance Name [facility] Hospital Course 60 y.o female at [facility] [...] posture. 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 Pt agreeable to use of her cane [...] and Time KrystenEda PT 09/05/20 1502 Normal [facility] GLUCOSE METERon 09-04-2020 Glucose [Mass/Vol] 94 mg/dL Normal 70-99 [facility] Comment on above: Result Comment: Fast ing GLUCOSE reference range has been updated per (ADA) [place] [employer]'s recommendation. 07/18/2018 Performed By: #### L 500.42759 ####Test performed at: [place] [address] Internal Medicine Consultati onon 09-04-2020 Internal Medicine Consultation [facility] Patient: CARROLL FUENTES [address] [place] [address] MR#: [id number] CONSULTATION - Internal Medicine : 58 Service [...] of Systems (more content not included)... Normal [facility] OPERATIVE REPORTon OPERATIVE REPORT NAME: CARROLL FUENTES MR#: [id number] SURGEON: Tera Hernandez MD DATE OF SURGERY: [...] were no complications. TERA HERNANDEZ MD [facility] PT NAME: CARROLL FUENTES MR#: [id number] [address] [place] [address] ACCT: [id number] : 58 OPERATIVE REPORT JFS/MODL/[id number] E/S: Tera Hernandez MD 09/18/20 1207 Electronically Signed [facility] PT NAME: CARROLL FUENTES MR#: [id number] [address] [place], [place] [address] ACCT: [id number] : 58 OPERATIVE REPORT Normal [facility] Primary Residenton 1 Primary Resident [facility] Pt Name: CARROLL FUENTES MR#: [id number] [address] [place] [address] ACCT: [id number] [place] [id number] : 58 Service Date: 09/04/20 1603 Primary Resident/Call Primary Resident: [id number] [address] After Hours Call: [phone] Red Team Electronically Signed eSign Date and Time Ana Flanagan RES 09/16/20 1521 Normal [facility] LUMBAR SPINE 2 OR 3 VIEWSon 09-03-2020 LUMBAR SPINE 2 OR 3 VIEWS STUDY: LUMBAR SPINE 2 OR 3 VIEWS; 09/04/2020 2:57 pm INDICATION: LEFT L4-L5 LAMINECTOMY,FORAMINOTOM Y,DECOMPRESSION. COMPARISON: None. ACCESSION NUMBER(S): [id number] ORDERING CLINICIAN: Tera Hernandez FINDINGS: Intraoperative fluoroscopy of the lumbar spine demonstrates surgical instruments posterior to L5. IMPRESSION: As above Normal [facility] CHEST PA/AP & LATERALon CHEST PA/AP & LATERAL STUDY: CHEST PA/AP LATERAL; 08/25/2020 11:00 am INDICATION: SOB/PAT. COMPARISON: None. ACCESSION NUMBER(S): [id number] ORDERING CLINICIAN: Madelyn Leone FINDINGS: The lungs are clear without pleural effusion. Normal heart size, mediastinum, elzbieta, and pulmonary vasculature. IMPRESSION: No active disease in the chest. Normal [facility] CONSULTATION REPORTon 2020 CONSULTATION REPORT NAME: CARROLL FUENTES MR#: [id number] CRM DEVELOPER: Madelyn Leone MD DATE OF CONSULTATION: 08/25/2020 [...] ox is 98% on room air. [facility] PT NAME: CARROLL FUENTES MR#: [id number] [address] [place] [address] ACCT: [id number] : 58 CONSULTATION HEENT: Atraumatic head. 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 IMPRESSION: 1. Preop clearance for L4-L5 disk [...] courtesy of this consultation. MADELYN LEONE MD MS/MODL/[id number] E/S: Madelyn Leone MD 08/26/20 1750 Electronically Signed [facility] PT NAME: CARROLL FUENTES MR#: [id number] [address] [place] [address] ACCT: [id number] : 58 CONSULTATION Normal [facility] LUMB SP COMP W FLEX/EXT 6 VW S>on 08-08-2020 LUMB SP COMP W FLEX/EXT 6 VWS> STUDY: LUMB SP COMP W FLEX/EXT 6 VWS>; 08/08/2020 9:43 am INDICATION: BACK PAIN. COMPARISON: No available comparisons. ACCESSION NUMBER(S): [id number] ORDERING CLINICIAN: Tera Hernandez TECHNIQUE: 6 views [...] L5-S1 level. No evidence of instability.. Normal [facility] XR SHLDR >/=3V AP/RUSH AP/OTH R RTon [...] on Jul 03 2018 10:17AM EST [id number] [facility] ANES Holly 06-20-2018 ANES POST HNO ID: [id number] Author: Rohit Velarde Service: Anesthesiology Author Type: [...] 20, 2018 TIME: 2:38 PM PAGER/CONTACT #: [facility] ANES PREOPon 06-20-2018 ANES PREOP HNO ID: [id number] Author: Rohit Velarde Service: Anesthesiology Author Type: [...] June 20, 2018 TIME: 9:35 AM CSN: [id number] [facility] BRIEF OP NOTon 06-20-2018 BRIEF OP NOT HNO ID: [id number] Author: Kusum Francisco Service: Orthopaedic Surgery Author Type: Resident Type: Brief Op Note Filed: 06/20/2018 5:49 PM Note Text: BRIEF OP NOTE LOG ID: [id number] Surgery/Procedure Date: 06/20/2018 Incision/Procedure Start Time: 11:18 AM Incision Close/Procedure End Time: 1:17 PM Surgeon(s)/Proceduralis t(s) and Retail Warehouse Associate(s): Surgeon(s) and Role: * Jenna Garsia - [...] 20, 2018 TIME: 5:49 PM PAGER/CONTACT #: [facility] CASE MANAGEMon 06-20-2018 CASE MANAGEM HNO ID: [id number] Author: May Herrera (Sw) Service: Care Management Author Type: Corporate Strategy Analyst Type: Care Mgt Progress Note Filed: 06/20/2018 [...] is pcp summary of care sent via [facility] () Nurse to provide discharge instructions. TRANSPORTATION ARRANGEMENTS: Car Spouse ADDITIONAL CONTACT RESOURCES: Needs Prior to Discharge: Ready for Discharge Appointments for Next 45 Days Date Time Provider Location Dept Phone 07/03/2018 10:00 AM CAROLA BAPTISTE AT [phone] 07/03/2018 10:30 AM GABRIEL CANTU) LATOSHA AT [phone] 07/31/2018 2:15 PM JENNA GARSIA AT [phone] Pt to be discharged home to follow up as above. SIGNATURE: DARIO Saini PATIENT NAME: Carroll Fuentes DATE: June 20, 2018 TIME: 5:31 PM PAGER/CONTACT #: [phone] [facility] CASE MGT INIT ASSESon 2018 CASE MGT INIT [facility] HNO ID: [id number] Author: May Herrera (Sw) Service: Care Management Author Type: Corporate Strategy Analyst Type: Care Mgt Initial Assessment Filed: 06/20/2018 5:31 PM Note Text: CARE MANAGEMENT: ASSESSMENT AND DISCHARGE PLAN SERVICE DATE: 06/20/2018 SERVICE TIME: 5:27p PRIMARY CARE PHYSICIAN: Robert Villasenor MD ADMISSION STATUS: Inpatient Needs Prior to Discharge: Ready for Discharge MEDICAL: Patient/Adjunct History Instructor Stated Goals: To improve my functional status Health Insurance: M[employer] None Health Issues Impacting Discharge Plan: Pt [...] With: Spouse Financial Resources: 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 O.Therapy recommend home. Spouse visiting at bedside and will transport pt home later today.Further discharge needs not anticipated.SW/TCC to follow to assist with plans for discharge. SIGNATURE: DARIO Saini PATIENT NAME: aCrroll Fuentes DATE: June 20, 2018 TIME: 5:27 PM PAGER/CONTACT #: [phone] [facility] CONSULTon 06-20-2018 CONSULT HNO ID: [id number] Author: Dulce Green Service: General Internal Medicine [...] Disp: Rfl: 06/19/2018 at 0630 rizatriptan (MAXALT CREPING MACHINE OPERATOR HELPER) 10 mg disintegrating tablet DISSOLVE 1 [...] the care of your patient. Dulce Green APRN.ASSEMBLER CORNCOB PIPES June 20, 2018 4:34 PM Normal [facility] NURSING PROGon 06-20-2018 Protein mass conc HNO ID: [id number] Author: Fela (Rn) FLETCHER Phillips Service: (none) Author Type: Registered Nurse Type: Nursing Progress Note Filed: 06/20/2018 7:39 PM Note Text: Nursing Progress Note Patient Name: Carroll Fuentes Patient Location: [place]-523/ [place]-* Daily Note: 1545. Care assumed. Pt resting [...] at bedside. 1720. Dr. Meeks and Dulce ADVERTISING DESIGNER at bedside, plan is to stay for [...] note was completed by: Fela Phillips RN [facility] Protein mass conc HNO ID: [id number] Author: Wendy (Rn) FLETCHER Underwood Service: Nursing Author Type: Registered Nurse Type: Nursing Progress Note Filed: 06/20/2018 10:20 AM Note Text: Nursing Progress Note Patient Name: Carroll Fuentes Patient Location: SURGERY [facility] Daily Note:Right interscalene nerve block with ultrasound guidance with Dr. Velarde and Dr. Marlow at bedside. Patient tolerated procedure well, VSS, will continue to monitor as we wait for OR team. Resting comfortably with no complaints of pain at this time. This note was completed by: Wendy Underwood RN [facility] OPERATIVE NOon 06-20-2018 OPERATIVE NO HNO ID: [id number] Author: Jenna Garsia Service: Orthopaedic Surgery Author Type: Physician Type: Operative Report Filed: 06/20/2018 1:25 PM Note Text: [place] [address] [place] OPERATIVE REPORT NAME: Carroll Fuentes [facility] #: [id number] DATE: 06/20/2018 (11:18am-1:17pm) AGE: 58 SURGEON 1: Jenna Garsia M.D. LAP WINDING MACHINE OPERATOR: 1. Augie Coates M.D. 2. Kusum Prasad M.D. 3. Mundo Pablo OPERATION: Right total shoulder arthroplasty, biceps tenodesis. ANESTHESIA: General anesthesia with regional interscalene nerve block for postoperative pain control. PREOPERATIVE DIAGNOSIS: Right shoulder primary glenohumeral osteoarthritis. POSTOPERATIVE DIAGNOSIS: Right shoulder primary glenohumeral osteoarthritis, biceps tendinopathy. OPERATIVE INDICATIONS: The patient is a 58 year oldtvm-zuyr-hjk right-hand dominant white female who has a [...] rotator interval stitch was then passed in fwgsgq-jm-dklld fashion with a #2 Ticron suture and tied down to close the lateral rotator interval and set the osteotomy superiorly. The two #2 Fiberwire sutures coming out of the bicipital groove were then sequentially passed in a aapsab-xe-vuhse fashion medial to the horizontal mattress and [...] none COMPLICATIONS: none apparent Jenna Garsia M.D. [facility] PT EDon 06-20-2018 PT ED HNO ID: [id number] Author: Cindy ValenciaRnTyesha Griffin RN Service: (none) [...] Signed By: Cindy Griffin RN In Department: [facility] SURGICAL SERVICES [facility] THERAPY NTon 06-20-2018 THERAPY NT HNO ID: [id number] Author: Abi Phillips Service: Occupational Therapy Author Type: Occupational Therapist Type: Therapy (PT/OT/Speech/Resp) Filed: 06/20/2018 4:59 PM Note Text: Occupational Therapy Evaluation SERVICE DATE: 06/20/2018 SERVICE TIME: 1550 to 1640 ROOM: [facility] FL-523-P Recommended Discharge Disposition: Home Anticipated Discharge [...] daily living (ADL) Interventions Provided: Evaluation;Therapeutic Exercise (10451);Self Jail Management (60356) $ Evaluation-Low (72586) Billed Units: 1 unit Therapeutic Exercise (48425) Treatment Minutes: 10 1 unit Skilled Intervention(s): Education in Self Jail Management (19459) Treatment Minutes: 28 2 units Skilled Intervention(s): [...] Lives With: Spouse Assistance Available: time study statistician Number Of Stairs To Bed/Bath: 0 Equipment [...] DATE: June 20, 2018 TIME: 4:54 PM [facility] XR SHOULDER 2V AP/TRUE AP [...] on Jun 20 2018 2:04PM EST [id number] [facility] NURSING PROGon 06-09-2018 Protein mass conc HNO ID: [id number] Author: Ivana (Rn) FLETCHER Heller Service: Nursing [...] AM Addendum 06/15/18 EKG IN [facility] FINAL Ivana Heller RN June 15, 2018 4:39 PM Normal [facility] Type and SCR (30D)on 019 ABO/RH(D) Positive Normal [facility] HOSPon 04-28-2018 HOSP Patient:Adalberto Fuentes MRN: Height:5' 2 (1.575 m) Weight:186 lb (84.369 kg) Outpatient Medications as of 06/20/18: calcium phosphate dibas/vit D3 (VITAMIN D, WITH CALCIUM, ORAL) docusate sodium (COLACE) 100 mg capsule aspirin, enteric coated (ECOTRIN LOW STRENGTH) 81 mg EC tablet oxyCODONE-acetaminophen (PERCOCET) 5-325 mg tablet rizatriptan (MAXALT CREPING MACHINE OPERATOR HELPER) 10 mg disintegrating tablet mupirocin (BACTROBAN) [...] Progress Notes (RADIO CT SCAN [facility]): RT Lillian, Tech 06/07/2018 10:04 [...] RT Lillian June 07, 2018 9:54 AM [facility] Vital Signs Date Time Vital Sign Value Performing Clinician Facility 07-25-2024 09:00-0400 Diastolic blood pressure 79 mm[Hg] [facility] 07-25-2024 09:00-0400 Heart rate 66 /min [facility] 07-25-2024 09:00-0400 Respiratory rate 12 /min [facility] 07-25-2024 09:00-0400 Systolic blood pressure 161 mm[Hg] [facility] 07-18-2024 10:47-0400 Body height 154.94 cm [facility] 07-18-2024 10:47-0400 Body mass index (BMI) [Ratio] 32.8 kg/m2 [facility] 07-18-2024 10:47-0400 Body weight 78.95 kg [facility] 07-18-2024 10:47-0400 Diastolic blood pressure 74 mm[Hg] [facility] 07-18-2024 10:47-0400 Heart rate 68 /min [facility] 07-18-2024 10:47-0400 Respiratory rate 12 /min [facility] 07-18-2024 10:47-0400 Systolic blood pressure 134 mm[Hg] [facility] 07-13-2024 10:11-0400 Body height 154.94 cm [facility] 07-13-2024 10:11-0400 Body mass index (BMI) [Ratio] 32.9 kg/m2 [facility] 07-13-2024 10:11-0400 Body weight 79.01 kg [facility] 07-13-2024 10:11-0400 Diastolic blood pressure 77 mm[Hg] [facility] 07-13-2024 10:11-0400 Heart rate 65 /min [facility] 07-13-2024 10:11-0400 Respiratory rate 12 /min [facility] 07-13-2024 10:11-0400 Systolic blood pressure 117 mm[Hg] [facility] 07-11-2024 08:30-0400 Body temperature 98.6 [degF] Jose Sharif MD Work Phone: [facility] 07-11-2024 08:30-0400 Diastolic blood pressure 62 mm[Hg] Jose Sharif MD Work Phone: [facility] 07-11-2024 08:30-0400 Heart rate 88 /min Jose Sharif MD Work Phone: [facility] [employer] 07-11-2024 08:30-0400 Respiratory rate 16 /min Jose Sharif MD Work Phone: [facility] [employer] 07-11-2024 08:30-0400 SaO2% (BldA) [Mass fraction] 98 % Jose Sharif MD Work Phone: [facility] [employer] 07-11-2024 08:30-0400 Systolic blood pressure 117 mm[Hg] Jose Sharif MD Work Phone: [facility] [employer] 07-06-2024 20:16-0400 Body height 154.9 cm Jose Sharif MD Work Phone: [facility] [employer] 07-06-2024 20:16-0400 Body mass index (BMI) [Ratio] 33.07 kg/m2 Jose [facility] 07-06-2024 20:16-0400 Body weight 79.38 kg Jose Sharif MD [facility] 07-04-2024 15:04-0400 Body height 154.94 cm [facility] 07-04-2024 15:04-0400 Body mass index (BMI) [Ratio] 32.9 kg/m2 [facility] 07-04-2024 15:04-0400 Body weight 79.06 kg [facility] 07-04-2024 15:04-0400 Diastolic blood pressure 79 mm[Hg] [facility] 07-04-2024 15:04-0400 Heart rate 69 /min [facility] 07-04-2024 15:04-0400 Respiratory rate 12 /min [facility] 07-04-2024 15:04-0400 Systolic blood pressure 177 mm[Hg] [facility] 06-25-2024 10:11-0500 Body temperature 97.3 [degF] [facility] 06-25-2024 10:11-0500 Diastolic blood pressure 76 mm[Hg] [facility] 06-25-2024 10:11-0500 Heart rate 54 /min [facility] 06-25-2024 10:11-0500 Respiratory rate 16 /min [facility] 06-25-2024 10:11-0500 SaO2% (BldA) [Mass fraction] 98 % [facility] 06-25-2024 10:11-0500 Systolic blood pressure 119 mm[Hg] [facility] 06-25-2024 10:07-0500 Body height 154.94 cm [facility] 06-25-2024 10:07-0500 Body mass index (BMI) [Ratio] 32.9 kg/m2 [facility] 06-25-2024 10:07-0500 Body weight 79.15 kg [facility] 02-24-2024 14:13-0400 Body height 154.94 cm [facility] 02-24-2024 14:13-0400 Body mass index (BMI) [Ratio] 33.1 kg/m2 [facility] 02-24-2024 14:13-0400 Body temperature 96 [degF] [facility] 02-24-2024 14:13-0400 Body weight 79.6 kg [facility] 02-24-2024 14:13-0400 Diastolic blood pressure 84 mm[Hg] [facility] 02-24-2024 14:13-0400 Heart rate 66 /min [facility] 02-24-2024 14:13-0400 Systolic blood pressure 159 mm[Hg] [facility] 12-20-2023 15:35-0400 Body height 154.94 cm [facility] 12-20-2023 15:35-0400 Body mass index (BMI) [Ratio] 33.8 kg/m2 [facility] 12-20-2023 15:35-0400 Body weight 81.19 kg [facility] 12-20-2023 15:35-0400 Diastolic blood pressure 80 mm[Hg] [facility] 12-20-2023 15:35-0400 Heart rate 78 /min [facility] 12-20-2023 15:35-0400 Respiratory rate 12 /min [facility] 12-20-2023 15:35-0400 Systolic blood pressure 134 mm[Hg] [facility] 04-29-2023 09:00-0500 Body height 154.94 cm Robert Ball Other [facility] [employer] Other 04-29-2023 09:00-0500 Body mass index (BMI) [Ratio] 33.14 kg/m2 Robert Ball Other [employer] Other 04-29-2023 09:00-0500 Body weight 79.56 kg Robert Ball Other [employer] Other 04-29-2023 09:00-0500 Diastolic blood pressure 89 mm[Hg] Robert Ball Other [employer] Other 04-29-2023 09:00-0500 Respiratory rate 12 /min Robert Ball Other [employer] Other 04-29-2023 09:00-0500 Systolic blood pressure 155 mm[Hg] Robert Ball Other [employer] Other 12-20-2022 13:45-0400 Body height 154.94 cm Robert Ball Other [employer] Other 12-20-2022 13:45-0400 Body mass index (BMI) [Ratio] 34.12 kg/m2 Robert Ball Other [employer] Other 12-20-2022 13:45-0400 Body weight 81.92 kg Robert Ball Other [employer] Other 12-20-2022 13:45-0400 Diastolic blood pressure 96 mm[Hg] Robert Ball Other [employer] Other 12-20-2022 13:45-0400 Respiratory rate 12 /min Robert Ball Other [employer] Other 12-20-2022 13:45-0400 Systolic blood pressure 179 mm[Hg] Robert Ball Other [employer] Other 08-04-2022 09:45-0400 Body height 154.94 cm Robert Ball Other [employer] Other 08-04-2022 09:45-0400 Body mass index (BMI) [Ratio] 33.33 kg/m2 Robert Ball Other [employer] Other 08-04-2022 09:45-0400 Body weight 80.02 kg Robert Ball Other [employer] Other 08-04-2022 09:45-0400 Diastolic blood pressure 77 mm[Hg] Robert Ball Other [employer] Other 08-04-2022 09:45-0400 Respiratory rate 12 /min Robert Ball Other [employer] Other 08-04-2022 09:45-0400 Systolic blood pressure 128 mm[Hg] Robert Ball Other [employer] Other Encounters Encounter Date Encounter Type Care Provider Facility Start: 07-25-2024 End: 07-25-2024 ambulatory [facility] Work Phone: Start: 07-25-2024 End: 07-25-2024 Patient encounter procedure [facility] Work Phone: Start: 07-18-2024 End: 07-18-2024 ambulatory [facility] Work Phone: Start: 07-18-2024 End: 07-18-2024 Patient encounter procedure [facility] Work Phone: Start: 07-18-2024 Non-patient / Non-visit [facility] Work Phone: Start: 07-13-2024 End: 07-13-2024 ambulatory [facility] Work Phone: Start: 07-13-2024 End: 07-13-2024 Patient encounter procedure [facility] Work Phone: Start: 07-12-2024 Non-patient / Non-visit [facility] Work Phone: Start: 07-11-2024 Non-patient / Non-visit [facility] Work Phone: Start: 07-06-2024 End: 07-11-2024 Evaluation and management of inpatient Jose Sharif MD Work Phone: [facility] Orthoped[facility] 7K Start: 07-04-2024 End: 07-04-2024 ambulatory [facility] Work Phone: Start: 07-04-2024 End: 07-04-2024 Encounter for other preprocedural examination [facility] Start: 07-04-2024 End: 07-04-2024 Patient encounter procedure [facility] Work Phone: Start: 06-27-2024 Non-patient / Non-visit [facility] Work Phone: Start: 06-25-2024 End: 06-25-2024 ambulatory [facility] Work Phone: Start: 06-25-2024 End: 06-25-2024 Patient encounter procedure [facility] Work Phone: Start: 06-21-2024 ambulatory [facility] Start: 06-01-2024 Non-patient / Non-visit [facility] Work Phone: Start: 05-31-2024 Non-patient / Non-visit [facility] Work Phone: Start: 04-09-2024 End: 04-09-2024 ambulatory Miriam Barron MD Facility: [facility] Start: 02-24-2024 End: 02-24-2024 ambulatory [facility] Work Phone: Start: 02-24-2024 End: 02-24-2024 Patient encounter procedure [facility] Work Phone: Start: 02-22-2024 Non-patient / Non-visit [facility] Work Phone: Start: 12-27-2023 Non-patient / Non-visit [facility] Work Phone: Start: 12-20-2023 Patient encounter status [facility] Start: 12-20-2023 End: 12-20-2023 ambulatory [facility] Work Phone: Start: 12-20-2023 End: 12-20-2023 Patient encounter procedure [facility] Work Phone: Start: 09-26-2023 End: 09-26-2023 ambulatory Miriam Barron MD Facility:[facility] Start: 08-15-2023 End: 08-15-2023 ambulatory Miriam Barron MD Facility:[facility] Start: 08-08-2023 End: 08-08-2023 ambulatory Miriam Barron MD Facility:[facility] Start: 06-27-2023 End: 06-27-2023 ambulatory Miriam Barron MD Facility:[facility] Start: 06-06-2023 End: 06-06-2023 ambulatory Miriam Barron MD Facility:[facility] Start: 06-01-2023 End: 06-01-2023 ambulatory Robert Villasenor Other [employer] Other Start: 06-01-2023 Telephone encounter Robert Villasenor [facility] Start: 05-23-2023 End: 05-23-2023 ambulatory Miriam Barron MD Facility:[facility] Start: 05-13-2023 End: 05-13-2023 ambulatory Robert Villasenor Other [employer] Other Start: 05-13-2023 Telephone encounter Robert Villasenor [facility] Start: 05-09-2023 End: 05-09-2023 ambulatory Robert Ball Other [employer] Other Start: 05-09-2023 Telephone encounter Robert Ball [facility] Start: 05-04-2023 End: 05-04-2023 ambulatory Robert Ball Other [employer] Other Start: 05-04-2023 Telephone encounter Robert Ball [facility] Start: 05-02-2023 End: 05-02-2023 ambulatory Robert Ball Other [employer] Other Start: 05-02-2023 Telephone encounter Robert Ball [facility] Start: 04-29-2023 End: 04-29-2023 ambulatory Robert Ball Other [employer] Other Start: 04-29-2023 Office outpatient vi sit 15 minutes Robert Ball [facility] Start: 04-04-2023 End: 04-04-2023 ambulatory Robert Ball Other [employer] Other Start: 04-04-2023 Telephone encounter Robert Ball [facility] Start: 01-24-2023 End: 01-24-2023 ambulatory Robert Villasenor Other [employer] Other Start: 01-24-2023 Telephone encounter Robert Villasenor [facility] Start: 12-23-2022 End: 12-23-2022 ambulatory Robert Villasenor Other [employer] Other Start: 12-23-2022 Telephone encounter Robert Villasenor [facility] Start: 12-20-2022 End: 12-20-2022 ambulatory Robert Villasenor Other [employer] Other Start: 12-20-2022 Office outpatient vi sit 15 minutes Robert Hamilton [facility] Start: 12-17-2022 End: 12-17-2022 ambulatory Robert Villasenor Other [employer] Other Start: 12-17-2022 Telephone encounter Robert Ball [facility] Start: 11-08-2022 End: 11-08-2022 ambulatory Robert Villasenor Other [employer] Other Start: 11-08-2022 Telephone encounter Robert Ball [facility] Start: 10-22-2022 End: 10-22-2022 ambulatory Robert Villasenor Other [employer] Other Start: 10-22-2022 Telephone encounter Robert Ball [facility] Start: 10-13-2022 End: 10-13-2022 ambulatory Robert Villasenor Other [employer] Other Start: 10-13-2022 Telephone encounter Robert Ball [facility] Start: 09-27-2022 End: 09-27-2022 ambulatory Robert Villasenor Other [employer] Other Start: 09-27-2022 Telephone encounter Robert Ball [facility] Start: 08-23-2022 End: 08-24-[address] RISHI PARKER Facility: Start: 08-04-2022 End: 08-04-2022 ambulatory Robert Villasenor Other [facility] [employer] Other Start: 08-04-2022 Office outpatient vi sit 25 minutes [facility] Start: 04-03-2022 Encounter for genera l adult medical examination without abnormal findings DR ROBERT VILLASENOR [facility] Start: 03-30-2022 End: 03-31-2022 ambulatory [...] 07-03-2018 End: 07-03-2018 Patient encounter procedure [facility] Start: 06-20-2018 End: 06-20-2018 Evaluation and management of inpatient [facility] Procedures Date Procedure Procedure Detail Performing Clinician [...] 60 yrs+ (1 - 1-dose 75+ series) [employer] [facility] [place] Start: 07-11-2025 GFR test (Diabetes, CKD 3-4, OR last GFR 15-59) GFR test (Diabetes, CKD 3-4, OR last GFR 15-59) [employer] [facility] [place] Start: 04-25-2024 Annual Wellness Visi t (Medicare Advantage) Annual Wellness Visit (Medicare Advantage) [employer] [facility] [place] Start: 12-25-2023 COVID-19 Vaccine ( season) COVID-19 Vaccine ( season) [employer] [facility] [place] Start: 2014 Screening for osteoporosis DEXA (modify frequency per FRAX score) [employer] [facility] [place] Start: 2009 Pneumococcal 50+ yea rs Vaccine (1 of 1 - PCV) Pneumococcal 50+ years Vaccine (1 of 1 - PCV) [employer] [facility] [place] Start: 2009 Shingles vaccine (1 of 2) Shingles vaccine (1 of 2) [employer] [facility] [place] Start: 2004 Screening for malign ant neoplasm of colon [employer] [facility] [place] Start: 1999 Screening for malign ant neoplasm of breast Breast cancer screen [employer] [facility] [place] Start: 1994 Diabetes screen Diabetes screen [employer] [facility] [place] Start: 1989 Screening for malign ant neoplasm of cervix [employer] [facility] [place] Start: 1980 Screening for malign ant neoplasm of cervix Pap smear [employer] [facility] [place] Start: 1978 DTaP/Tdap/Td vaccine (1 - Tdap) DTaP/Tdap/Td vaccine (1 - Tdap) [facility] [employer] Start: 1977 Hepatitis C screening [facility] Start: 1974 HIV screening HIV screen [facility] [employer] Start: 1971 Depression Screen [facility] Start: 1969 Lipid panel Lipids [place] [facility] [employer] End: 07-15-2024 Basic metabolic 2000 panel - Serum or Plasma Basic Metabolic Panel Lab Routine Daily for 1 Weeks starting 07/09/2024 until 07/15/2024, 3 completed [employer] [facility] [place] Comment on above: Daily for [address] arting 07/09/2024 until 07/15/2024, 3 completed Comprehensive metabo lic 2000 panel - Serum or Plasma [facility] Glucose [Mass/volume ] in Serum or Plasma POCT Glucose Point of Care Testing STAT As Needed until discontinued starting 07/06/2024 [employer] [facility] [place] Comment on above: As Needed until disc ontinued starting 07/06/2024 Glucose [Mass/volume ] in Serum or Plasma POCT glucose Point of Care Testing Routine 4X Daily (AC & HS) until discontinued starting 07/07/2024, 18 completed [employer] [facility] [place] Comment on above: 4X Daily (AC & HS) u ntil discontinued starting 07/07/2024, 18 completed Glucose [Mass/volume ] in Serum or Plasma POCT Glucose Point of Care Testing STAT As Needed until discontinued starting 07/10/2024 [employer] [facility] [place] Comment on above: As Needed until disc ontinued starting 07/10/2024 End: 07-15-2024 Hemoglobin and Hematocrit Hemoglobin and Hematocrit Lab Routine Daily for 1 Weeks starting 07/09/2024 until 07/15/2024, 3 completed [employer] [facility] [place] Comment on above: Daily for [address] arting 07/09/2024 until 07/15/2024, 3 completed MG Breast - bilatera l [facility] Oxygen therapy [Mini [facility] Data Set] Initiate Oxygen Therapy Protocol Respiratory Care Routine As Needed until discontinued starting 07/08/2024 [employer] [facility] [place] Comment on above: As Needed until disc ontinued starting 07/08/2024 Spirometry panel Incentive jesse metry Respiratory Care Routine Every 2hr while awake until discontinued starting 07/06/2024 [employer] [facility] [place] Work Phone: Comment on above: Every 2hr while awak e until discontinued starting 07/06/2024 Spirometry panel Incentive jesse metry Respiratory Care Routine Every 2hr while awake until discontinued starting 07/08/2024 [employer] [facility] [place] Comment on above: Every 2hr while awak e until discontinued starting 07/08/2024 [facility] Payers Date Payer Category Payer Unknown [id number] 2023 [id number] 2019 Unknown [id number] 2015 Unknown [id number] 1959 Self-pay [id number] 1959 Unknown [id number] [id number] 93 1959 Unknown [id number] 2.16.840.1.639890.3.579.2.5 93 1959 Unknown [id number] 2.16.840.1.769916.3.579.2.5 93 1959 Unknown [id number] 2.16.840.1.273780.3.579.2.5 93 1959 Unknown [id number] 2.16.840.1.587587.3.579.2.5 93 1959 Unknown [id number] 2.16.840.1.892689.3.579.2.5 93 1959 Unknown [id number] 2.16.840.1.022913.3.579.2.1 96 1959 Unknown [id number] 2.16.840.1.135205.3.579.2.1 96 1959 Unknown [id number] 2.16.840.1.566772.3.579.2.1 96 1959 Unknown [id number] 2.16.840.1.651857.3.579.2.1 96 1959 Unknown [id number] 2.16.840.1.002690.3.579.2.1 96 1959 Unknown [id number] 2.16.840.1.961897.3.579.2.1 96 1959 Unknown [id number] 2.16.840.1.152451.3.579.2.1 96 1959 Unknown [id number] 2.16.840.1.933012.3.579.2.7 27 1959 Unknown [id number] 2.16.840.1.405490.3.579.2.9 3 Medicare Medicare [id number] Unknown [id number] 2.16.840.1.276461.3.579.2.5 93 Unknown O [id number] Unknown [facility] PF [id number] Social History Date Type Detail Facility Start: 07-06-2024 Sex Assigned At [employer] Other Start: 1960 Sex Assigned At Female [facility] Tobacco smoking stat us NMIS Unknown if ever smoked [facility] Work Phone: Start: 06-25-2024 End: 07-25-2024 Sex Female (finding) [facility] Start: 07-06-2024 Tobacco smoking status NHIS Never smoked tobacco [employer] [facility] [place] Start: 07-06-2024 Tobacco use and exposure Smokeless tobacco non-user [employer] [facility] [place] Start: 07-09-2024 Alcoholic beverage intake Lifetime non-drinker (finding) [employer] [facility] [place] Start: 07-06-2024 History of Social function [facility] Has the [employer], [employer], or water [employer] threatened to shut off services in your home in past 12Mo No [employer] [facility] [place] (I/We) worried whekrystal er (my/our) food would run out before (I/we) got money to buy more. Never true [employer] [facility] [place] In the past 12 month s, has lack of transportation kept you from medical appointments or from getting medications? No [employer] [facility] [place] Start: 1960 Sex assigned at Not on file [employer] [facility] [place] Medical Equipment Procedure Code Equipment Code Equipment Original Text Equipment Identifier Dates Screw Spnl L45mm Dia6.5mm Post Thoracolumbosacral Co Chrom - [id number] Start: 07-08-2024 Screw Spnl L40mm Dia6.5mm Post Thoracolumbosacral Co Chrom - [id number] Start: 07-08-2024 Set Scr Spnl L6m m Dia5.5mm Ti Brk Off Svetlana W/ Detach Cdh - [id number] Start: 07-08-2024 Evan Spnl L35mm D ia5.5mm Ant Post Thoracolumbosacral Ti - [id number] Start: 07-08-2024 Clinical Notes 08-04-2022 to [...] 10:15 AM Subjective: Admit Date: 07/06/2024 PCP: Robetr Villasenor DO Interval History: D 3 post [...] PT/OT SCD amlabs Jose Sharif MD, MD [facility] INPATIENT PHYSICAL THERAPY EVALUATION [facility] ORTHOPEDICS 7K - 7K-21/021-A Discharge Recommendations: [...] or urinary incontinence. 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 Senior Care Goals Time Frame for Parts Sales Representative Goals : NA due to short ELOS Following session, patient left in safe position with all fall risk precautions in place. Pt in bed following session, all needs and call light in reach, alarm on. [facility] ORTHOPEDICS 7K Occupational Therapy Daily Note Discharge Recommendations: Home with Home Health OT Equipment Recommendations: No Monitor need for LHAE. Time In: 0800 Time Out: 827 Timed Code Treatment Minutes: 28 Minutes Minutes: 28 Date: 07/10/2024 Patient Name: Carroll Fuentes, Gender: female Room: [address] [place] [address] : 1960 (64 y.o.) Referring Practitioner: Dank [...] or urinary incontinence. 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 Patient pleasant and cooperative throughout session. PAIN: 10/02: Vitals: Vitals not assessed per clinical judgement, see nursing flowsheet COGNITION: WFL ADL: Grooming: Modified Independent. Hair care seated in bedside chair Upper Extremity Dressing: Minimal Assistance. Carroll/doff house robe Lower Extremity Dressing: Minimal Assistance. With laboratory manager in order to carroll/doff hospital shorts with verbal/visual cues to complete, demonstrating good understanding. Footwear Management: Supervision, X 1, with verbal cues , and with increased time for completion. Utilized laboratory manager/sock aid in order to doff/carroll B [...] indep within home environment. Additional Goals?: No Parts Sales Representative Goals Time Frame for Senior Care Goals : No LTGs d/t short estimated [...] MD [facility] PHYSICAL THERAPY MISSED TREATMENT NOTE [facility] 7K Date: 07/09/2024 Patient Name: Carroll Fuentes : 1960 (64 y.o.) Gender: female REASON FOR MISSED TREATMENT: Missed Treat. Attempted x3 today. 1st attempt, pt with tech on BSC and then requesting to eat breakfast. 2nd attempt, OT with pt. 3rd attempt, protective services case worker in room to complete assessment. [facility] INPATIENT OCCUPATIONAL THERAPY [facility]ED[facility] 7K EVALUATION Discharge Recommendations: Continue [...] or urinary incontinence. 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 Additional Goals?: No Parts Sales Representative Goals Time Frame for Senior Care Goals : No LTGs d/t short estimated [...] pain 6/10 at this time, medicated by EEG TECH 1840 pt resting, resp easy. VSS 1850 pt awakens to voice, states pain 5/10 and tolerable. VSS 1900 c/o pain 7/10, medicated with 50 mcg fentanyl 1904 no change in pain status, medicated with 50 mcg fentanyl 1910 pt resting, resp easy. VSS 1915 pt resting, resp easy. VSS 1925 pt meets criteria for discharge from pacu at this time. Pt transported to [facility] in stable condition Patient to OR [...] Fuentes Age: 64 y.o. Sex: female Language: Pakistani Baptism: Confucianist Intractable back pain Date: 07/07/2024 Total Time Calculated: (P) 14 min Spiritual Assessment began in [facility] 7K Referral/Consult From: (P) Nurse [...] and how she loves everything about the mormon. Patient finds peace and hope in her liliane as a mandaen and desires to have sacrament of the sick by a chief clinical officer, before her surgery tomorrow afternoon. I told the patient that I will let the spiritual care team know. Offered patient words of encouragement, quoted Scripture, and prayed with the patient, at her request. Patient expressed gratitude. Made patient aware of product steward availability and support. Patient Interventions include: Facilitated expression of thoughts and feelings, Explored spiritual coping/struggle/distress, Affirmed coping skills/support systems, and Provided sacramental/nondenominational ritual Family/Friends Interventions include: No family/friends present Patient Plan of Care: Contact Liliane community chest officer for support or sacramental needs Family/Friends Plan of Care: No family/friends present documented in this encounter [facility] 07-11-2024 Hospital Discharge instructions Bhavani [...] All vegetables, especially asparagus, pruitt sprouts, broccoli, [place] sprouts, cabbage, carrots, cauliflower, celery, corn, greens, [...] taking more than one drug. This includes mfwe-ldz-[id number] medication and herb or dietary supplements. Plan [...] possible side effects documented in this encounter [facility] 07-08-2024 Note PROCEDURE: XR LUMBAR [...] loss of vertebral body height is seen. [facility] 07-08-2024 Note PROCEDURE: XR LUMBAR SPINE 1 [...] by: Sivakumar Betts MD 07/08/24 Final result [facility] 06-25-2024 Evaluation note Diagnosis Onset Date [...] internal medicine noneactive July 04, 2024 2:57pm [facility] Work Phone: 1(527) 765-230903-03-2025 Evaluation note* Diagnosis Onset Date Resolution Status [...] h hyperglycemia acute July 04, 2024 2:57pm [facility] Work Phone: 1(198) 375-161003-03-2025 Evaluation note* Diagnosis Onset Date Resolution Status [...] 2024 2:57pm Acute blood loss anemia acute [facility] 2024 9:25am Central stenosis of spinal canal acu te July 13, 2024 9:25am Herniated intervertebral dis c of lumbar spine acute July 13, 2024 9:25am Hypotension due to hypovolemia acute July 13, 2024 9:25am Type 2 diabetes mellitus wit h hyperglycemia acute July 13, 2024 9:25am Acute blood loss anemia acute [facility] 2024 10:08am Adverse effect of mixed sedatives acute July 18, 2024 10:08am Central stenosis of spinal canal acu te July 18, 2024 10:08am Herniated intervertebral dis c of lumbar spine acute July 18, 2024 10:08am Hypotension due to hypovolemia acute July 18, 2024 10:08am Type 2 diabetes mellitus wit h hyperglycemia acute July 18, 2024 10:08am Visual hallucinations acute [facility] 2024 10:08am [facility] Work Phone: 1(716) 564-106303-03-2025 Evaluation note* Diagnosis Onset Date Resolution Status [...] 2024 9:25am Acute blood loss anemia acute [facility] 2024 10:08am Central stenosis of spinal canal acu te July 18, 2024 10:08am Herniated intervertebral dis c of lumbar spine acute July 18, 2024 10:08am Hypotension due to hypovolemia acute July 18, 2024 10:08am Type 2 diabetes mellitus wit h hyperglycemia acute July 18, 2024 10:08am Visual hallucinations acute [facility] 2024 10:08am [facility] Work Phone: 1(234) 106-661102-07-2024 Evaluation note* Encounter Date Diagnosis Assessment Notes Treatment Notes Treatment Clinical Notes May, Autoimmune thyroiditis (ICD-10 - E06.3) May, Elevated cholesterol (ICD-10 - E78.00) May, Type 2 diabetes mellitus with hyperglycemia, without long-term current use of insulin (ICD-10 - E11.65) May, Primary hypertension (ICD-10 - I10) May, Intractable chronic migraine without aura and without status migrainosus (ICD-10 - G43.719) [employer] Other 01-15-2024 Evaluation note* Encounter Date Diagnosis Assessment Notes Treatment Notes Treatment Clinical Notes Apr, Intractable chronic migraine without aura and without status migrainosus (ICD-10 - G43.719) [employer] Other 01-08-2024 Evaluation note* Encounter Date Diagnosis Assessment Notes Treatment Notes Treatment Clinical Notes Apr, Intractable chronic migraine without aura and without status migrainosus (ICD-10 - G43.719) [employer] Other 01-05-2024 Evaluation note* Encounter Date Diagnosis [...] Begin Amitriptyline Stop Tizanidine. MRI cervical spine [employer] Other 08-31-2023 Evaluation note* Encounter Date Diagnosis Assessment Notes Treatment Notes Treatment Clinical Notes Nov, Primary hypertension (ICD-10 - I10) [employer] Other 08-28-2023 Evaluation note* Encounter Date Diagnosis Assessment Notes Treatment Notes Treatment Clinical Notes Nov, Adverse effect of smooth muscle relaxant, subsequent encounter (ICD-10 - T44.3X5D) Avoid combination of Klonopin and Zanaflex when scheduled transitional care nurse. May want to cut back on Zanaflex. [...] Pain in left shoulder (ICD-10 - M25.512) [facility] Other 06-30-2023 Evaluation note* Encounter Date Diagnosis Assessment Notes Treatment Notes Treatment Clinical Notes Sep, Type 2 diabetes mellitus with hyperglycemia, without long-term current use of insulin (ICD-10 - E11.65) [facility] Other 06-05-2023 Evaluation note* Encounter Date Diagnosis Assessment Notes Treatment Notes Treatment Clinical Notes Sep, Candidiasis, intertriginous (ICD-10 - B37.2) [facility] Other 04-12-2023 Evaluation note* Encounter Date Diagnosis [...] use, the patient reduces the risk for OH, CVA, HTN, cardiac dysrhythmias and sudden cardiac [...] Jul, Other specified hypothyroidism (ICD-10 - E03.8) [employer] Other Evaluation noteNo InformationNort [employer] Other Evaluation noteNo assessment information available [facility] Work Phone: Evaluation note* Diagnosis Onset Date Resolution Status Cervical pain acute Cervical spondylosis acute Cervical pain acute Cervical spondylosis acute Painful lumpy right breast a cute [facility] Work Phone: Evaluation note* Diagnosis Intractable back pain- Primary Backache, unspecified Spinal stenosis of lumbar region with neurogenic claudication Spinal stenosis, lumbar region, with neurogenic claudication Primary hypertension Unspecified essential hypertension Type 2 diabetes mellitus, without long-term current use of insulin (HCC) documented in this encounter [facility] general Narrative - Reported* Type Description Date [...] CATHETERIZATION 2016 Hospitalization History SEE SURIGCAL HX [employer] Other History general Narrative - Reported* Type [...] knee arthroscopy 10/2022 Hospitalization History SEE SURIGCAL [facility] Other Reason for referral (narrative)* Reason Evaluation of right knee pain Diagnosis 1 Strain of right knee , subsequent encounter (S86.574Z) Referral Organization [facility] [employer] [facility] bhupinder Referring Provider First Name Robert Referring Provider Last Name Hamilton Referring Provider Specialty Internal Me yoni Referred Provider Rishi Parker Jr Referred Provider Specialty Orthopedic S urgery Referral Priority Routine [employer] Other Reason for referral (narrative)* Reason Referral for neck pa in Diagnosis 1 Cervicalgia (M54.2) Diagnosis 2 Cervical spondylosis (M47.812) Referral Organization [facility] [employer] [facility] bhupinder Referring Provider First Name Robert Referring Provider Last Name Hamilton Referring Provider Specialty Internal Id dicine Referred Organization [facility] Referred Address [address] [place], [place],[address] Referred Provider Specialty Pain Medicin e Referral Priority Routine General Notes Patient has hx of ce rvical discectomy and fusion and presented w/ persistent neck pain, which radiated upwards causing a headache. She is being referred for treatment with the pain clinic. Clinical Notes Include MRI [facility] Other Reason for visit Narrative* Auth/Cert Specialty Diagnoses / Procedures Referred By Jass adams Referred To Contact Diagnoses Intractable back pain large disc herniation Kole, Jose Meier MD [address] [place] [address] Phone: tel: fax: [facility] [employer] [address] [place] [address] Referral ID Status Reason Start Date Expiration Date Visits Re quested Visits Authorized [id number] 1 1 [employer] - [place] Summary Purpose Family History No Family History [...] Type 2 diabetes mellitus with hyperglyce [facility] July 04, 2024 2:57pm Acute blood loss [...] section and content) DATE CREATED AUTHOR 06/20/2018 [facility] DATE CREATED AUTHOR AUTHOR'S ORGANIZ ATION 07/04/2018 [facility] DATE CREATED AUTHOR AUTHOR'S ORGANIZ ATION 09/18/2020 [facility] DATE CREATED AUTHOR AUTHOR'S ORGANIZ ATION 08/27/2022 [facility] DATE CREATED AUTHOR AUTHOR'S ORGANIZ ATION 04/18/2024 [facility] DATE CREATED AUTHOR AUTHOR'S ORGANIZ ATION 06/23/2024 [facility] DATE CREATED AUTHOR AUTHOR'S ORGANIZ ATION 08/10/2024 [facility] REASON FOR VISIT (unrecogniz [...] July 04, 2024 End: July 04, 2024 Digital Print Operator Relationship Specialty Start Date End Date Robert Villasenor DO [address] [place] [id number] PCP - General Internal Medicine 07/06/24 Team [...] Provider: Chrissy Cuellar RN)0118 (Stopped - Provider: Chirssy Cuellar RN) atenolol (TENORMIN) tablet 50 mg [...] for injection by adding 1 mL of sugar house supervisor-supplied sterile diluent or sterile water for injection [...] ordered., Post-op 0656 (See Alternative - Provider: Biajl Zavala RN)110 (Given - Provider: Irma Villagomez, [...] BE BASED ON THE PRIMARY CLINICAL RECORDS. [employer] provides no warranty or guarantee of the accuracy or completeness of information in this document.
[2024-10-13 09:02] LABS: Basophils Percent Auto 0.6 % (0.2-2.0); Eosinophils Absolute Auto 0.3 10^3/uL (0.0-0.7); Eosinophils Percent Auto 4.5 % (0.9-7.0); Hematocrit 37.7 % (36.0-48.0); Immature Granulocytes Abs Auto 0.02 10^3/uL (0.00-0.03); Immature Granulocytes Pct Auto 0.3 % (0.0-0.5); Lymphocytes Absolute Auto 2.7 10^3/uL (1.2-3.8); Lymphocytes Percent Auto 42.6 % (20.5-60.0); Mean Corpuscular HGB Conc 31.8 g/dL (29.9-35.2); Mean Corpuscular Hemoglobin 26.1 pg (26.7-34.0); Mean Platelet Volume 9.8 fL (9.5-13.5); Monocytes Absolute Auto 0.5 10^3/uL (0.3-0.8); Monocytes Percent Auto 8.5 % (1.7-12.0); Neutrophils Absolute Auto 2.8 10^3/uL (1.4-6.5); Neutrophils Percent Auto 43.5 % (43.0-75.0); Platelet Count 227 10^3/uL (150-450); Red Cell Distribution Width 12.6 % (11.0-15.0); White Blood Count 6.4 10^3/uL (4.0-11.0)
[2024-10-13 09:49] LABS: Alanine Aminotransferase 29 U/L (14-59); Albumin Level 3.6 g/dL (3.4-5.0); Alkaline Phosphatase 91 U/L (46-116); Anion Gap 15.5; Aspartate Amino Transferase 23 U/L (15-37); BUN Creatinine Ratio 25.7; Bilirubin Total 0.6 mg/dL (0.2-1.0); Calcium 8.9 mg/dL (8.5-10.1); Carbon Dioxide 26.8 mmol/L (21.0-32.0); Chloride 103 mmol/L (98-107); Cholesterol 161 mg/dL (<=200); Estimated GFR (African America >60 (>=60 mL/min/1.73m^2); Estimated GFR (Non-African Ame 50 (>=60 mL/min/1.73m^2); Globulin 3.6 g/dL; Glucose 75 mg/dL (74-106); HDL Cholesterol 54 mg/dL (40-60); Potassium 4.3 mmol/L (3.5-5.1); Sodium 141 mmol/L (136-145); Total Protein 7.2 g/dL (6.4-8.2); Triglycerides 154 mg/dL (<=150); VLDL CHOLESTEROL 30.8 mg/dL
[2024-10-13 10:02] LABS: Creatinine Urine Random 72.31 mg/dL (20.00-300.00); Microalbumin Urine Random <1.3 mg/dL (<=30.0)
== END 2024-10-13 08:49 | disposition home or self-care (01) ==
LOC: LAB 08:48
PROVIDERS: PCP Internal Medicine; Visit Provider Internal Medicine
DX: Z00.00 Encounter for general adult medical examination without abnormal findings (principal); I10 Essential (primary) hypertension; E11.65 Type 2 diabetes mellitus with hyperglycemia; E78.00 Pure hypercholesterolemia, unspecified
CPT/HCPCS: 36415; 80053; 80061; 82043; 82570; 85025

== ENCOUNTER 2024-12-18 10:50 | Outpatient (RCR) | payer OTHER, SELFPAY | END 2024-12-26 06:56 | disposition home or self-care (01) | LOC: PT 10:50 | PROVIDERS: PCP Internal Medicine; Visit Provider Orthopaedic Surgery Orthopaedic Surgery of the Spine | DX: M70.61 Trochanteric bursitis, right hip (principal); M25.551 Pain in right hip; R26.81 Unsteadiness on feet | CPT/HCPCS: 97010; 97035; 97140; 97161; G0283 ==

== ENCOUNTER 2024-12-20 07:30 | Outpatient (OUT) | payer OTHER, SELFPAY ==
--- OUTSIDE RECORDS SUMMARY | 2024-12-20 07:36 | XMS_ITS | CCD ---
Author Organization [facility] Informat ion Partnership [facility] Care Team Providers Care Senior Mainframe Programmer Analyst Name Role Phone EJNNA GARSIA Admitting Unavailable JENNA GARSIA Attending Unavailable LISANDRO MEEKS Consulting Unavailable JENNA GARSIA Referring Unavailable Robert Villasenor Unavailable HAMILTON, DR [...] Unavailable PRISCILLA ., DR MAZARIEGOS Attending Unavailable HOLevy ., DR MAZARIEGOS Consulting Unavailable PRISCILLA Soares, DR MAZARIEGOS Admitting Unavailable BALL, DR NINO Primary Care Unavailable Anderson HENLEY, Miriam Stephenson Attending Unavailable Anderson HENLEY, Miriam Stephenson Attending Unavailable Anderson HENLEY, Miriam Stephenson Attending Unavailable Anderson HENLEY, Andvalentine Stephenson Attending Unavailable Anderson HENLEY, Miriam Stephenson Attending Unavailable Anderson HENLEY, Miriam Stephenson Attending Unavailable Anderson HENLEY, Miriam Stephenson Attending Unavailable Raisa PRICE Attending Unavailable Hamilton STOCKTON Robert Primary Care Provider [phone] SHIRA, OLUREMI A Admitting Unavailable SHIRA, OLUREMI A Attending Unavailable TERA TRAN Referring Unavailable HAMILTON ROBERT Primary Care Unavailable ELOISE VELIZ Consulting Unavailable Hamilton STOCKTON Robert Primary Care Provider Hamilton Robert Attending Provider [phone] HAMILTON ROBERT Primary Care Unavailable TOMÁS HELTON Referring Unavailable TOMÁS HELTON Attending Unavailable Allergies Allergy Classification Reported Allergen(s) Allergy Type Date of Onset Reaction(s) Facility (3 sources) Contrast media; Translations: [CONTRAST DYE] Propensity to adverse reactions to drug (disorder) 09-30-19 11 [facility] Repository (2 sources) HYDROmorphone; Translations: [HYDROMORPHONE (BULK)] Drug Allergy 08-17-19 17 [facility] Repository (20 sources) Latex; Translations: [LATEX] Propensity to adverse reactions to drug (disorder) 09-30-19 11 Hives [facility] Repository (2 sources) Meperidine; Translations: [MEPERIDINE (PF)] Drug Allergy 09-30-19 11 [facility] Repository (2 sources) Povidone-Iodine; Translations: [POVIDONE-IODINE] Drug Allergy 10-21-19 17 [facility] Repository (2 sources) SUMAtriptan; Translations: [SUMATRIPTAN SUCCINATE] Drug Allergy 09-30-19 11 [facility] Repository (2 sources) INFLUENZA VACCINE TRI-SP 09-10; Translations: [INFLUENZA VACCINE TRI-SP 09-10] Propensity to adverse reactions to drug (disorder) 09-30-19 11 [facility] Repository (3 sources) DHE; Translations: [DHE] Propensity to adverse reactions to drug (disorder) 10-24-19 13 [facility] Repository (20 sources) HYDROmorphone Drug Allergy 12-20-19 24 Unknown, Unknown Reaction [facility] (20 sources) Iodine; Translations: [iodine] Drug Allergy 10-24-19 13 Unknown, Unknown Reaction [facility] Repository (20 sources) Meperidine Drug Allergy 12-20-19 24 Unknown, Unknown Reaction [facility] (20 sources) SUMAtriptan Drug Allergy 12-20-19 24 Hives [facility] (20 sources) Fluad Drug allergy 12-20-19 24 Unknown, Unknown Reaction [facility] (19 sources) DHEA Drug allergy 07-07-19 25 Anaphylaxis [facility] Other (2 sources) HYDROmorphone; Translations: [Dilaudid] Drug Allergy 10-24-19 13 [facility] Repository (1 source) Meperidine Drug Allergy 10-24-19 13 [facility] Repository (2 sources) Plasmin; Translations: [Imitrex] Drug Allergy 10-24-19 13 [facility] Repository (12 sources) influenza A virus (H1N1) antigen / influenza A virus (H3N2) antigen / influenza B virus antigen Drug Allergy 11-21-19 14 Comment:FLU VACCINE [facility] Other (12 sources) Contraindication to Flu Injection Propensity to adverse reactions 03-07-20 14 Comment:advers e rxn/side effects [facility] Other (3 sources) patient allergy list reviewed by nurse or physicia Propensity to adverse reactions 12-22-19 14 Comment:Done [facility] Other (8 sources) Calcium Drug Allergy 12-20-19 24 Unknown Reaction [facility] (8 sources) Calcium Carbonate Drug Allergy 12-20-19 24 Unknown Reaction [facility] (8 sources) prasterone (DHEA) Allergy to substance 12-20-19 24 Unknown Reaction [facility] (8 sources) Fluad Quadrivalent Allergy to substance 04-29-19 24 Comment:FLU VACCINE [facility] Comment on above: Onset Date: 11/21/19 14 (1 source) Meperidine; Translations: [Demerol HCl] Drug Allergy [facility] Repository (1 source) flu vaccines; Translations: [flu vaccines] Propensity to adverse reactions (disorder) [facility] Repository (2 sources) Iodine Strong Propensity to adverse reactions to drug 07-07-19 Hives [facility] (2 sources) Meperidine Drug Allergy 07-07-19 Other (See Comments) [facility] Medications Current Medications Medication Drug Class(es) Dates Sig (Normalized) Sig (Original) acetaminophen 325 mg oral tablet (2 sources) Start: 07-08-2024 Start: 07-06-2024 acetaminophen (TYLENOL) tablet 650 mg atenolol 50 mg oral tablet (20 sources) beta-Adrenergic Maria Esther Start: 08-14-2024 take 1 tablet by mouth once daily Atenolol 50 mg tablet Active 50 MG PO Daily August 14, 2024 7:47pm Complies with drug therapy Start: 07-07-2024 50 mg, Oral, D AILY, First dose on 07/07/24 at 1000, Until Discontinued, Hold for HR less then 60, On hold since Tue07/10/2024 at 1409 until manually unheld Start: 03-28-2024 End: 08-14-2024 take 1 tablet by mouth once daily Atenolol 50 mg tablet Discontinued 0 .ROUTE .COMPLEX March 28, 2024 8:00am August 14, 2024 7:54pm TAKE 1 TABLET BY MOUTH ONCE DAILY Start: 08-04-2022 End: 03-28-2024 take 1 tablet by mouth once daily Atenolol 50 mg tablet Discontinued 50 MG PO Daily December 20, 2023 12:00am March 28, 2024 8:00am 12 hr buPROPion hydrochloride 150 mg extended release oral tablet (2 sources) Aminoketone Start: 10-11-2024 End: 10-11-2024 take 1 tablet by mouth once daily in the morning Bupropion Hcl 150 mg tablet sustained-release 12 hr Active 150 MG PO Every morning October 11, 2024 11:42am Complies with drug therapy citalopram 40 mg oral tablet (20 sources) Serotonin Reuptake Inhibitor Start: 07-07-2024 take 20 mg by mouth once daily 20 mg, Oral, DAILY, First dose on 07/07/24 at 0900, Until Discontinued Start: 10-22-2022 End: 08-14-2024 take 1 tablet by mouth once daily at bedtime Citalopram 40 mg tablet Discontinued 40 MG PO Daily at bedtime October 18, 2023 12:00am October 18, 2023 8:38am clonazePAM 1 mg oral tablet (20 sources) Benzodiazepine Start: 07-06-2024 take 1 mg by mouth once daily 1 mg, Oral, NIGHTLY, First dose on Tue07/06/24 at 2200, Until Discontinued Start: 12-20-2023 End: 08-14-2024 take 1.5 mg by mouth once daily at bedtime Clonazepam (Klonopin) 1 mg tablet Active 1.5 MG PO Daily at bedtime 135 90 August 14, 2024 7:48pm Complies with drug therapy Start: 06-13-2023 End: 12-20-2023 take 3 tablets [...] Start: 09-30-2022 take 3 tablets by mo [facility] at bedtime clonazePAM 0.5 MG TAKE 3 TABLETS BY MOUTH AT BEDTIME for 30 days Sep, Active [facility] needed clonazePAM (KLONOPIN) 1 MG tablet Take 1 tablet by mouth nightly as needed (Restless leg). Active etodolac 500 mg oral tablet (20 sources) Nonsteroidal Anti-inflammatory Drug Start: 08-14-2024 take 1 tablet by mouth twice daily Etodolac 500 mg tablet Active 500 MG PO Twice daily 180 90 August 14, 2024 7:49pm Complies with drug therapy Start: 07-08-2024 End: 08-14-2024 take 1 tablet by mouth twice daily as needed for headache Etodolac 500 mg tablet Discontinued 0 .ROUTE .COMPLEX 60 July 08, 2024 10:42am August 14, 2024 7:54pm TAKE 1 TABLET ORALLY TWICE DAILY NEEDED [...] mg oral tablet (20 sources) Sulfonylurea Start: 08-14-2024 take 1 tablet by mouth once daily Glimepiride 4 mg tablet Active 4 MG PO Daily 90 August 14, 2024 7:49pm Complies with drug therapy Start: 03-28-2024 End: 08-14-2024 take 1 tablet by mouth once daily at breakfast Glimepiride 4 mg tablet Discontinued 0 .ROUTE .COMPLEX March 28, 2024 8:00am August 14, 2024 7:54pm TAKE 1 TABLET BY MOUTH DAILY WITH BREAKFAST OR FIRST MAIN MEAL OF THE DAY Start: 12-20-2023 End: 03-28-2024 Glimepiride 4 mg tablet Discontinued 1 TAB PO Daily December 20, 2023 [...] for injection by adding 1 mL of environmental emergencies planner-supplied sterile diluent or sterile water for injection [...] Magnesium Aspart,Citrate,Ox ashutosh 400 mg magnesium capsule (6 sources) Start: 12-20-2023 take 1 capsule by mouth once daily Magnesium Aspart,Citrate,Oxid e 400 mg magnesium capsule Active 400 MG PO Daily December 20, 2023 12:00am Complies with drug therapy Start: 12-20-2023 take 1 capsule by [facility] once daily Magnesium Aspart,Citrate,Oxide 400 mg magnesium capsule Active 400 MG PO Daily December 20, 2023 12:00am Start: 12-20-2023 take 1 capsule by [facility] once daily Magnesium Aspart,Citrate,Oxide 400 mg magnesium capsule Active 400 MG PO Daily December 19, 2023 11:00pm 50 ml magnesium sulfate 40 mg/ml injection (1 source) Start: 07-06-2024 2,000 mg, IntraVENous, at 25 mL/hr, Administer [...] mg oral tablet (20 sources) Biguanide Start: 08-14-2024 take 1 tablet by mouth twice daily at mealtime Metformin 500 mg tablet Active 500 MG PO Twice daily with meals 180 90 August 14, 2024 7:51pm Complies with drug therapy Start: 03-28-2024 End: 08-14-2024 take 1 tablet by mouth twice daily Metformin 500 mg tablet Discontinued 0 .ROUTE .COMPLEX 180 March 28, 2024 8:00am August 14, 2024 7:54pm TAKE 1 TABLET BY MOUTH WITH A [...] sources) Angiotensin 2 Receptor Maria Esther Start: 08-14-2024 take 1 tablet by mouth once daily Olmesartan 20 mg tablet Active 20 MG PO Daily 90 90 August 14, 2024 7:52pm Complies with drug therapy Start: 03-28-2024 End: 08-14-2024 take 1 tablet by mouth once daily Olmesartan 20 mg tablet Discontinued 0 .ROUTE .COMPLEX 90 March 28, 2024 9:29pm August 14, 2024 7:54pm TAKE 1 TABLET BY MOUTH ONCE DAILY [...] disintegrating tablet 4 mg polyethylene glycol 3350 02371 mg powder for oral solution (1 source) Osmotic Laxative Start: 07-08-2024 17 g, Oral, DAILY, First dose on 07/08/24 at 2014, Until Discontinued, Stir and dissolve one packet of powder (17 g) in any 4 to 8 ounces of beverage (cold, hot or room temperature) then drink, Post-op Potassium Chloride (1 source) Start: 07-06-2024 potassium chloride (KLOR-CON M) extended release tablet 40 mEq pregabalin 75 mg oral capsule (5 sources) Start: 11-28-2024 take 1 capsule by mouth twice daily Pregabalin 75 mg capsule Active 75 MG PO Twice daily 60 30 November 28, 2024 12:00am Complies with drug therapy Start: 08-14-2024 End: 10-11-2024 take 1 capsule by mouth twice daily Pregabalin 75 mg capsule Discontinued 75 MG PO Twice daily 180 90 August 29, 2024 4:45pm October 11, 2024 11:03am Start: 07-25-2024 End: 08-14-2024 take 1 capsule by mouth twice daily Pregabalin 50 mg capsule Discontinued 50 MG PO Twice daily 6 3 July 25, 2024 12:00am August 14, 2024 7:54pm rizatriptan 10 mg oral tablet (15 sources) Serotonin-1b and Serotonin-1d Receptor Agonist Start: 12-20-2023 take 3 tablets by mouth every twenty-four hours as needed Rizatriptan (Maxalt) 10 mg tablet Active 10 MG PO EVERY 2-4 HOURS as needed December 20, 2023 12:00am do not exceed 3 doses per 24 hrs Complies with drug therapy Start: 11-04-2022 take 1 tablet by fredrick th every two hours as needed for headache Maxalt-BRUSH OPERATOR 10 MG 1 tablet Orally PRN [...] day prn headache for 90 days Active Completed/Discontinued Medications Medication Drug Class(es) Dates Sig (Normalized) Sig (Original) acetaminophen 325 mg / HYDROcodone bitartrate 5 mg oral tablet (11 sources) Opioid Agonist Start: 07-06-2024 HYDROcodone-acetam inophen (NORCO) 5-325 MG per tablet 1 tablet Start: 07-04-2024 End: 08-14-2024 take 1 tablet by mouth every four to six hours as needed for pain Hydrocodone-Acetaminophen 5-325 mg table t Discontinued 1 TAB PO EVERY 4-6 HOURS as needed for pain 28 July 18, 2024 August 14, 2024 7:50pm 20 ml albumin human, group home 250 mg/ml injection (1 source) Human [...] hypoproteinemia amitriptyline hydrochloride 10 mg oral tablet (15 sources) Tricyclic Antidepressant Start: 12-20-2023 End: 12-20-2023 [...] q HS for 30 days Apr, Active bisacodyl 5 mg delayed release oral tablet (2 sources) Stimulant Laxative Start: 07-08-2024 take 5 mg by mouth once daily 5 mg, Oral, DAILY, First dose on Tue07/08/24 at 2015, Until Discontinued, Do not crush or break., Post-op Start: 07-08-2024 take 10 mg rectal ro chilkoot once daily as needed for constipation 10 [...] mL Sterile Water. Withdraw entire contents., Post-op cloNIDine hydrochloride 0.1 mg oral tablet (17 [...] Post-op docusate sodium 50 mg / sennosides, group home 8.6 mg oral tablet (1 source) [...] PACU only gabapentin 100 mg oral capsule (3 sources) Anti-epileptic Agent Start: 07-07-2024 take 200 mg by mouth twice daily 200 mg, Oral, 2 TIMES DAILY, First dose on 07/07/24 at 1000, Until Discontinued Start: 06-30-2024 take 2 capsules by m outh twice daily gabapentin (NEURONTIN) 100 MG capsule Take 2 capsules by mouth 2 times daily. 06/30/2024 Active glipiZIDE 10 mg oral tablet (1 source) [...] oral tablet (20 sources) l-Thyroxine Start: 03-28-2024 End: 08-14-2024 take 1 tablet by mouth once daily in the morning Levothyroxine 125 mcg tablet Discontinued 0 .ROUTE .COMPLEX March 28, 2024 8:00am August 14, 2024 7:54pm TAKE 1 TABLET BY MOUTH ONCE DAILY IN THE MORNING ON AN EMPTY STOMACH Start: 12-20-2023 End: 03-28-2024 take 1 capsule by mouth once daily Levothyroxine 125 mcg capsule Discontinued 125 MCG PO Daily December 20, 2023 12:00am March 28, 2024 8:00am Start: 07-26-2022 take 1 tablet by fredrick th once daily Levothyroxine 125 mcg tablet Active 125 MCG PO Daily August 14, 2024 7:51pm Complies with drug therapy Start: 07-26-2022 take 1 tablet by fredrick [...] Opioid Reversal naratriptan 2.5 mg oral tablet (15 sources) Serotonin-1b and Serotonin-1d Receptor Agonist Start: [...] 2 hours for 30 days Apr, Active pravastatin sodium 20 mg oral tablet (20 sources) HMG-CoA Reductase Inhibitor Start: 03-28-2024 End: 08-14-2024 take 1 tablet by mouth once daily Pravastatin 20 mg tablet Discontinued 0 .ROUTE .COMPLEX 90 March 28, 2024 8:01am August 14, 2024 7:54pm TAKE 1 TABLET BY MOUTH ONCE DAILY Start: 12-20-2023 End: 03-28-2024 take 1 tablet by mouth once daily Pravastatin 40 mg tablet Discontinued 40 MG PO Daily December 20, 2023 12:00am March 28, 2024 8:02am Start: 08-04-2022 take 1 tablet by fredrick th once daily at bedtime Pravastatin 20 mg tablet Active 20 MG PO Daily at bedtime 90 90 August 14, 2024 7:52pm Complies with drug therapy predniSONE 20 mg oral tablet (7 sources) Start: 07-25-2024 End: 08-14-2024 take 1 tablet by mouth three times daily Prednisone 20 mg tablet Discontinued 20 MG PO As Directed 9 3 July 25, 2024 12:00am August 14, 2024 7:53pm 1 tab tid w/ food x 3 [...] x3 days, 1 tab daily x3days. Active 1000 ml sodium chloride 9 mg [...] 20 mL/lumen, Post-op [place] [address] mg powder for oral suspension (1 source) [...] hours before or 2 hours after dose. tiZANidine 4 mg oral tablet (20 sources) Central alpha-2 Adrenergic Agonist Start: 06-15-2024 End: 08-14-2024 take 1 tablet by mouth twice daily Tizanidine 4 mg tablet Discontinued 0 .ROUTE .COMPLEX 180 June 15, 2024 9:55am August 14, 2024 7:53pm TAKE 1 TABLET BY MOUTH TWICE A [...] 5:11pm take 1/2 to 1 tablet at [facility] Start: 06-17-2023 End: 12-16-2023 take 0.5 tablet by mouth once daily at bedtime Tizanidine 4 mg capsule Discontinued 4 MG PO Daily at bedtime as needed for muscle spasticity 90 June 17, 2023 1:40pm December 16, 2023 1:19pm take 1/2 tablet at [facility] take 1 tablet by fredrick th twice daily as needed tiZANidine (ZANAFLEX) 4 MG tablet Take 1 tablet by mouth 2 times daily as needed Active take 0.5-1 tablets b y mouth once daily at bedtime tiZANidine HCl 4 MG TAKE 1/2 TO 1 TABLET BY MOUTH EVERY DAY AT BEDTIME for 90 Active traMADol hydrochloride 50 mg oral tablet (4 sources) Opioid Agonist Start: 09-13-2024 End: 11-28-2024 take 1 tablet by mouth every eight hours as needed for pain Tramadol 50 mg tablet Discontinued 50 MG PO Every 8 hours as needed for pain 40 30 October 11, 2024 11:01am October 12, 2024 10:50am Problems Active Problems Problem Classification Problem Date Documented Date Episodic/Chronic Acute posthemorrhagic anemia (8 sources) Acute posthemorrhagic anemia; Translations: [Acute posthemorrhagic [...] KNEE INIT] Onset: 3 Episodic Mood disorders (19 sources) Recurrent major depression in full remission; Translations: [Major depressive disorder, recurrent, in full remission] 10-11-2024 Chronic Mycoses (1 source) Candidiasis of skin and nail Episodic Nonmalignant breast conditions (20 sources) Lump in left breast; Translations: [Unspecified lump in the left breast, unspecified quadrant] 02-24-2024 Episodic Osteoarthritis (12 sources) Primary osteoarthritis, left shoulder; Translations: [Primary osteoarthritis, right shoulder] Onset: 9 07-04-2024 Chronic Other connective tissue disease (6 sources) History of cervical spine fusion; Translations: [Arthrodesis status] 02-24-2024 Episodic Other connective tissue disease (4 sources) Arthrodesis status; Translations: [Arthrodesis status] 06-25-2024 Episodic Other nervous system disorders (1 source) Dysarthria and anarthria Episodic Other non-traumatic joint disorders (1 source) Pain in right shoulder Episodic Other non-traumatic joint disorders (1 source) Pain in left shoulder Episodic Other non-traumatic joint disorders (1 source) Swelling of knee joint; Translations: [Effusion, right knee] 09-12-2024 Episodic Other non-traumatic joint disorders (2 sources) Pain in right knee; Translations: [Right knee pain] 09-12-2024 Episodic Other nutritional; endocrine; and metabolic disorders (9 sources) Body mass index 30+ - obesity; Translations: [Body mass index (BMI) 33.0-33.9, adult] Chronic Other nutritional; endocrine; and metabolic disorders (9 sources) Obesity caused by energy imbalance; Translations: [Other obesity due to excess calories] Chronic Other screening for suspected conditions (not mental disorders or infectious disease) (6 sources) Encounter for screening mammogram for malignant neoplasm of breast; Translations: [Prerenal azotemia] Onset: 2 Episodic Other skin disorders (2 sources) Localized swelling, mass and lump, left upper limb; Translations: [Mass of left axilla] 09-12-2024 Episodic Residual codes; unclassified (20 sources) Obstructive sleep [...] fatigue; Translations: [OTHER FATIGUE] Onset: 11-27-2021 Episodic Unclassified (1 source) CONTACT W/AND (SUSP) EXPOS COVID-19; Translations: [CONTACT W/AND (SUSP) EXPOS COVID-19] Onset: 10-28-2021 Results Test Name Value Interpretation Reference Range Facility MRI KNEE RIGHT WO CONTRASTon 12-01-2024 MRI KNEE RIGHT WO CONTRAST EXAM: MRI KNEE RIGHT WO CONTRAST HISTORY: Osteoarthritis of right knee, unspecified osteoarthritis type; right knee pain since June. Right leg weakness with twisting. History of torn meniscus with repair 15 years ago. COMPARISON: MRI right knee 08/23/2022. TECHNIQUE: Multiplanar multisequence MRI of the right knee was performed without contrast. This included axial STIR, coronal and sagittal PD fat-sat, sagittal T2 and coronal T1 imaging. FINDINGS: MENISCI: Study is somewhat motion degraded. There is redemonstration of an oblique undersurface tear of the posterior horn to posterior junction of the medial meniscus. Some progressive free edge and undersurface irregularity of the posterior horn is noted. No perimeniscal cyst is identified. Mild free edge irregularity of the posterior horn of the lateral meniscus appears new. LIGAMENTS: The cruciate and collateral ligaments appear intact. TENDONS: The iliotibial band, biceps femoris, quadriceps, patellar and popliteus tendons are intact. Enthesophyte at the quadriceps tendon insertion. TIBIOFEMORAL JOINT: Intermediate grade chondral loss along the weightbearing medial femoral condyle with low to intermediate chondral loss of the medial tibial plateau. Intermediate to high-grade chondral loss along the posterior weightbearing lateral femoral condyle and posterior aspect along the tibial plateau. PATELLOFEMORAL JOINT: Intermediate to high-grade chondral loss at the patellar apex and lateral patellar facet. Similar findings along the lateral femoral trochlea. The patella is normally located in the trochlear groove. The tibial tubercle to trochlear groove interval appears within normal limits. SOFT TISSUES: Small knee joint effusion. Popliteal cyst measures 2.2 x 0.4 x 1.4 cm. The visualized musculature appears of normal signal intensity. BONES: No fracture is seen. IMPRESSION: 1. Similar slight progression of moderate to severe patellofemoral joint osteoarthritis with moderate medial and mild to moderate lateral tibiofemoral compartment osteoarthritis. 2. Slight progressive tear of the free edge and undersurface of the posterior horn to posterior junction of the medial meniscus. 3. Mild interval free edge tear of the posterior horn of the lateral meniscus. 4. No acute ligamentous injury. No fracture. Interpreted by: Isreal Garcia DO Signed by: Isreal Garcia DO 12/01/24 Final result Normal [facility] Basophils Auto (Bld) [#/Vol] Ordered By: Robert Villasenor on 10-13-2024 Basophils (Bld) [#/Vol] 0.0 10 3/uL 0.0-0.1 [facility] Basophils/100 WBC Auto (Bld) Ordered By: Robert Villasenor on 10-13-2024 Basophils/100 WBC (Bld) 0.6 % 0.2-2.0 [facility] Cholesterol in LDL Calc [Mas s/Vol]Ordered By: Robert Villasenor on 10-13-2024 Cholesterol in LDL [Mass/Vol] 77.0 mg/dL [facility] Comment on above: <100 mg/dl [id number] 0-129 mg/dl NEAR OR ABOVE [id number] mg/dl BORDERLINE [id number] mg/dl HIGH>190 mg/dl VERY HIGH Cholesterol in VLDL Calc [Ma ss/Vol]Ordered By: Robert Villasenor on 10-13-2024 Cholesterol in VLDL [Mass/Vol] 30.8 mg/dL [facility] Eosinophils/100 WBC Auto (Bl d)Ordered By: Robert Villasenor on 10-13-2024 Eosinophils/100 WBC (Bld) 4.5 % 0.9-7.0 [facility] Erythrocyte distribution wid th Auto (RBC) [Ratio]Ordered By: Robert Villasenor on 10-13-2024 Erythrocyte distribution width (RBC) [Ratio] 12.6 % 11.0-15.0 [facility] Estimated glomerular filtrat ion rate (GFR) non- AmericanOrdered By: Robert Villasenor on 10-13-2024 GFR/1.73 sq M.predicted among non-blacks MDRD (S/P/Bld) [Vol rate/Area] 50 mL/min/{1.73_m2} Low >=60 mL/min/1.73 m 2 [facility] Globulin Calc (S) [Mass/Vol] Ordered By: Robert Villasenor on 10-13-2024 Globulin (S) [Mass/Vol] 3.6 g/dL [facility] Hematocrit Auto (Bld) [Volum e fraction]Ordered By: Robert Villasenor on 10-13-2024 Hematocrit (Bld) [Volume fraction] 37.7 % 36.0-48.0 [facility] Hemoglobin [Mass/volume] in BloodOrdered By: Robert Villasenor on 10-13-2024 Hemoglobin (Bld) [Mass/Vol] 12.0 g/dL 12.0-16.0 [facility] Laboratory - Chemistry and C hemistry - challengeOrdered By: Robert Villasenor on 10-13-2024 Albumin [Mass/Vol] 3.6 g/dL 3.4-5.0 [facility] ALP [Catalytic activity/Vol] 91 U/L 46-116 [facility] ALT [Catalytic activity/Vol] 29 U/L 14-59 [facility] AST [Catalytic activity/Vol] 23 U/L 15-37 [facility] Bilirubin [Mass/Vol] 0.6 mg/dL 0.2-1.0 [facility] Calcium [Mass/Vol] 8.9 mg/dL 8.5-10.1 [facility] Chloride [Moles/Vol] 103 mmol/L 98-107 [facility] [facility] [place] Cholesterol [Mass/Vol] 161 mg/dL <=200 [facility] Cholesterol in HDL [Mass/Vol] 54 mg/dL 40-60 [facility] Comment on above: > or =60 mg/dl - LOW CARDIOVASCULAR RISK<40 mg/dl - HIGH CARDIOVASCULAR RISK CO2 [Moles/Vol] 26.8 mmol/L 21.0-32.0 [facility] Creatinine [Mass/Vol] 1.09 mg/dL High 0.55-1.[address] [facility] GFR/1.73 sq M.predicted MDRD (S/P/Bld) [Vol rate/Area] mL/min/{1.73_m2} >=60 mL/min/1.73 m 2 [facility] Glucose [Mass/Vol] 75 mg/dL 74-106 [facility] Potassium [Moles/Vol] 4.3 mmol/L 3.5-5.[address] [facility] Protein [Mass/Vol] 7.2 g/dL 6.4-8.2 [facility] Sodium [Moles/Vol] 141 mmol/L 136-145 [facility] Triglyceride [Mass/Vol] 154 mg/dL High <=150 [facility] Urea nitrogen [Mass/Vol] 28.0 mg/dL High 7.0-18.0 [facility] Urea nitrogen/Creatinine [Mass ratio] 25.7 mg/mg [facility] Laboratory - Hematology and Cell countsOrdered By: Robert Villasenor on 10-13-2024 Immature granulocytes/100 WBC (Bld) 0.3 % 0.0-0.5 [facility] Leukocytes [#/volume] correc chip for nucleated erythrocytes in Blood by Automated counOrdered By: Robert Villasenor on 10-13-2024 WBC corrected for nucl RBC Auto (Bld) [#/Vol] 6.4 10 3/uL 4.0-11.0 [facility] Lymphocytes Auto (Bld) [#/Vo l]Ordered By: Robert Villasenor on 10-13-2024 Lymphocytes (Bld) [#/Vol] 2.7 10 3/uL 1.2-3.8 [facility] Lymphocytes/100 WBC Auto (Bl d)Ordered By: Robert Villasenor on 10-13-2024 Lymphocytes/100 WBC (Bld) 42.6 % 20.5-60.0 [facility] MCH Auto (RBC) [Entitic mass ]Ordered By: Robert Villasenor on 10-13-2024 MCH (RBC) [Entitic mass] 26.1 pg Low 26.7-34.0 [facility] MCHC Auto (RBC) [Mass/Vol]Or dered By: Robert Villasenor on 10-13-2024 MCHC (RBC) [Mass/Vol] 31.8 g/dL 29.9-35.[address] [facility] MCV Auto (RBC) [Entitic vol] Ordered By: Robert Villasenor on 10-13-2024 MCV (RBC) [Entitic vol] 82.0 fL 81.0-99.0 [facility] Microalbumin [Mass/volume] i n UrineOrdered By: Robert Villasenor on 10-13-2024 Albumin DL <= 20 mg/L (U) [Mass/Vol] mg/dL <=30.0 [facility] Monocytes Auto (Bld) [#/Vol] Ordered By: Robert Villasenor on 10-13-2024 Monocytes (Bld) [#/Vol] 0.5 10 3/uL 0.3-0.8 [facility] Monocytes/100 WBC Auto (Bld) Ordered By: Robert Villasenor on 10-13-2024 Monocytes/100 WBC (Bld) 8.5 % 1.7-12.0 [facility] Neutrophils Auto (Bld) [#/Vo l]Ordered By: Robert Villasenor on 10-13-2024 Neutrophils (Bld) [#/Vol] 2.8 10 3/uL 1.4-6.5 [facility] Neutrophils/100 WBC Auto (Bl d)Ordered By: Robert Villasenor on 10-13-2024 Neutrophils/100 WBC (Bld) 43.5 % 43.0-75.0 [facility] No Panel InformationOrdered By: Robert Villasenor on 10-13-2024 Eosinophils # (Auto) 0.3 10 3/uL 0.0-0.[address] [facility] Immature Granulocyte # (Auto) 0.02 10 3/uL 0.00-0.03 [facility] Urine Random Creatinine 72.31 mg/dL 20.00-300.0 0 [facility] Platelet mean volume Auto (B ld) [Entitic vol]Ordered By: Robert Villasenor on 10-13-2024 Platelet mean volume (Bld) [Entitic vol] 9.8 fL 9.5-13.5 [facility] Platelets Auto (Bld) [#/Vol] Ordered By: Robert Villasenor on 10-13-2024 Platelets (Bld) [#/Vol] 227 10 3/uL 150-450 [facility] RBC Auto (Bld) [#/Vol]Ordere d By: Robert Villasenor on 10-13-2024 RBC (Bld) [#/Vol] 4.60 10 6/uL 4.20-5.40 [facility] Serum or plasma albumin/glob ulin mass ratioOrdered By: Robert Villasenor on 10-13-2024 Albumin/Globulin [Mass ratio] 1.0 {ratio} [facility] Serum or plasma anion gap de terminationOrdered By: Robert Villasenor on 10-13-2024 Anion gap [Moles/Vol] 15.5 mmol/[facility] Serum or plasma total choles terol/high density lipoprotein (HDL) cholesterol mass ratOrdered By: Robert Villasenor on 10-13-2024 Cholesterol.total/Chol esterol in HDL [Mass ratio] 3.0 {ratio} [facility] Comment on above: 3.3 - 4.4 LOW RISK4. 4 - 7.1 AVERAGE RISK7.1 - 11.0 MODERATE RISK>11.0 HIGH RISK Basophils Auto (Bld) [#/Vol] on 09-21-2024 Basophils (Bld) [#/Vol] 0.0 10 3/uL 0.0-0.1 [facility] Basophils/100 WBC Auto (Bld) on 09-21-2024 Basophils/100 WBC (Bld) 0.6 % 0.2-2.0 [facility] Cholesterol in LDL Calc [Mas s/Vol]on 09-21-2024 Cholesterol in LDL [Mass/Vol] 57.0 mg/dL [facility] Comment on above: <100 mg/dl [id number] 0-129 mg/dl NEAR OR ABOVE [id number] mg/dl BORDERLINE [id number] mg/dl HIGH>190 mg/dl VERY HIGH Cholesterol in VLDL Calc [Ma ss/Vol]on 09-21-2024 Cholesterol in VLDL [Mass/Vol] 37.6 mg/dL [facility] Eosinophils/100 WBC Auto (Bl d)on 09-21-2024 Eosinophils/100 WBC (Bld) 14.7 % High 0.9-7.0 [facility] Erythrocyte distribution wid th Auto (RBC) [Ratio]on 09-21-2024 Erythrocyte distribution width (RBC) [Ratio] 11.9 % 11.0-15.0 [facility] Estimated glomerular filtrat ion rate (GFR) non- Americanon 09-21-2024 GFR/1.73 sq M.predicted among non-blacks MDRD (S/P/Bld) [Vol rate/Area] 54 mL/min/{1.73_m2} Low >=60 mL/min/1.73 m 2 [facility] Globulin Calc (S) [Mass/Vol] on 09-21-2024 Globulin (S) [Mass/Vol] 3.7 g/dL [facility] Hematocrit Auto (Bld) [Volum e fraction]on 09-21-2024 Hematocrit (Bld) [Volume fraction] 35.4 % Low 36.0-48.0 [facility] Hemoglobin [Mass/volume] in Bloodon 09-21-2024 Hemoglobin (Bld) [Mass/Vol] 11.0 g/dL Low 12.0-16.0 [facility] Laboratory - Chemistry and C hemistry - challengeon 09-21-2024 Albumin [Mass/Vol] 3.2 g/dL Low 3.4-5.0 [facility] ALP [Catalytic activity/Vol] 89 U/L 46-116 [facility] ALT [Catalytic activity/Vol] 29 U/L 14-59 [facility] AST [Catalytic activity/Vol] 22 U/L 15-37 [facility] Bilirubin [Mass/Vol] 0.4 mg/dL 0.2-1.0 [facility] [place] Calcium [Mass/Vol] 9.2 mg/dL 8.5-10.1 [facility] Chloride [Moles/Vol] 105 mmol/L 98-107 [facility] [place] Cholesterol [Mass/Vol] 136 mg/dL <=200 [facility] Cholesterol in HDL [Mass/Vol] 42 mg/dL 40-60 [facility] Comment on above: > or =60 mg/dl - LOW CARDIOVASCULAR RISK<40 mg/dl - HIGH CARDIOVASCULAR RISK CO2 [Moles/Vol] 28.3 mmol/L 21.0-32.0 [facility] Creatinine [Mass/Vol] 1.02 mg/dL 0.55-1.[address] [facility] GFR/1.73 sq M.predicted MDRD (S/P/Bld) [Vol rate/Area] mL/min/{1.73_m2} >=60 mL/min/1.73 m 2 [facility] Glucose [Mass/Vol] 119 mg/dL High 74-106 [facility] Potassium [Moles/Vol] 5.3 mmol/L High 3.5-5.[address] [facility] Protein [Mass/Vol] 6.9 g/dL 6.4-8.2 [facility] Sodium [Moles/Vol] 143 mmol/L 136-145 [facility] Triglyceride [Mass/Vol] 188 mg/dL High <=150 [facility] TSH Qn 0.633 m[IU]/L 0.358-3.740 [facility] Urea nitrogen [Mass/Vol] 31.0 mg/dL High 7.0-18.0 [facility] Urea nitrogen/Creatinine [Mass ratio] 30.4 mg/mg [facility] Laboratory - Hematology and Cell countson 09-21-2024 Immature granulocytes/100 WBC (Bld) 0.2 % 0.0-0.5 [facility] Leukocytes [#/volume] correc chip for nucleated erythrocytes in Blood by Automated counon 09-21-2024 WBC corrected for nucl RBC Auto (Bld) [#/Vol] 5.3 10 3/uL 4.0-11.0 [facility] Lymphocytes Auto (Bld) [#/Vo l]on 09-21-2024 Lymphocytes (Bld) [#/Vol] 2.1 10 3/uL 1.2-3.8 [facility] Lymphocytes/100 WBC Auto (Bl d)on 09-21-2024 Lymphocytes/100 WBC (Bld) 39.2 % 20.5-60.0 [facility] MCH Auto (RBC) [Entitic mass ]on 09-21-2024 MCH (RBC) [Entitic mass] 26.1 pg Low 26.7-34.0 [facility] MCHC Auto (RBC) [Mass/Vol]on 09-21-2024 MCHC (RBC) [Mass/Vol] 31.1 g/dL 29.9-35.[address] [facility] MCV Auto (RBC) [Entitic vol] on 09-21-2024 MCV (RBC) [Entitic vol] 83.9 fL 81.0-99.0 [facility] Monocytes Auto (Bld) [#/Vol] on 09-21-2024 Monocytes (Bld) [#/Vol] 0.4 10 3/uL 0.3-0.8 [facility] Monocytes/100 WBC Auto (Bld) on 09-21-2024 Monocytes/100 WBC (Bld) 8.4 % 1.7-12.0 [facility] Neutrophils Auto (Bld) [#/Vo l]on 09-21-2024 Neutrophils (Bld) [#/Vol] 1.9 10 3/uL 1.4-6.5 [facility] Neutrophils/100 WBC Auto (Bl d)on 09-21-2024 Neutrophils/100 WBC (Bld) 36.9 % Low 43.0-75.0 [facility] No Panel Informationon 09-21 Eosinophils # (Auto) 0.8 10 3/uL High 0.0-0.[address] [facility] Immature Granulocyte # (Auto) 0.01 10 3/uL 0.00-0.03 [facility] Platelet mean volume Auto (B ld) [Entitic vol]on 09-21-2024 Platelet mean volume (Bld) [Entitic vol] 9.9 fL 9.5-13.5 [facility] Platelets Auto (Bld) [#/Vol] on 09-21-2024 Platelets (Bld) [#/Vol] 218 10 3/uL 150-450 [facility] RBC Auto (Bld) [#/Vol]on RBC (Bld) [#/Vol] 4.22 10 6/uL 4.20-5.40 [facility] Serum or plasma albumin/glob ulin mass ratioon 09-21-2024 Albumin/Globulin [Mass ratio] 0.9 {ratio} [facility] Serum or plasma anion gap de terminationon 09-21-2024 Anion gap [Moles/Vol] 15.0 mmol/L [facility] Serum or plasma total choles terol/high density lipoprotein (HDL) cholesterol mass desiree 09-21-2024 Cholesterol.total/Chol esterol in HDL [Mass ratio] 3.2 {ratio} [facility] Comment on above: 3.3 - 4.4 LOW RISK4. 4 - 7.1 AVERAGE RISK7.1 - 11.0 MODERATE RISK>11.0 H[facility]K Glucose mean value [Mass/vol ume] in Blood Estimated from glycated hemoglobinon 09-14-2024 Average glucose Estimated from glycated hemoglobin (Bld) [Mass/Vol] 146 mg/dL [facility] Hemoglobin A1c percentageon 09-14-2024 HbA1c (Bld) [Mass fraction] 6.7 % High 4.5-6.2 [facility] Comment on above: ADA RECOMMENDED LIMI T 4.0 - 6.0ADA THERAPEUTIC TARGET < 7.0ACTION SUGGESTED> 7.0 Microalbumin [Mass/volume] i n Urineon 09-14-2024 Albumin DL <= 20 mg/L (U) [Mass/Vol] 3.2 mg/dL <=30.0 [facility] No Panel Informationon 09-14 Urine Random Creatinine 260.08 mg/dL 20.00-300.0 0 [facility] Urine microalbumin/creatinin e mass ratioon 09-14-2024 Albumin/Creatinine DL <= 20 mg/L (U) [Mass ratio] 12.3 mg/g 0.0-29.9 [facility] Comment on above: NO MICROALBUMINURIA 0-29 MG/GCLINICAL MICROALBUMINURIA 30-300 MG/GMACROALBUMINURIA >300 MG/G Basophils Auto (Bld) [#/Vol] on 07-18-2024 Basophils (Bld) [#/Vol] Automated basophil count 0.0-0.1 [facility] Basophils/100 WBC Auto (Bld) on 07-18-2024 Basophils/100 WBC (Bld) Automated basophil % 0.2-2.0 [facility] Eosinophils/100 WBC Auto (Bl d)on 07-18-2024 Eosinophils/100 WBC (Bld) Automated eosinophil % 0.9-7.0 [facility] Erythrocyte distribution wid th Auto (RBC) [Ratio]on 07-18-2024 Erythrocyte distribution width (RBC) [Ratio] Erythrocyte distribution width [Ratio] by Automated count 11.0-15.0 [facility] Hematocrit Auto (Bld) [Volum e fraction]on 07-18-2024 Hematocrit (Bld) [Volume fraction] Hematocrit [Volume Fraction] of Blood by Automated count Low 36.0-48.0 [facility] Hemoglobin [Mass/volume] in Bloodon 07-18-2024 Hemoglobin (Bld) [Mass/Vol] Hemoglobin [Mass/volume] in Blood Low 12.0-16.0 [facility] Laboratory - Hematology and Cell countson 07-18-2024 Immature granulocytes/100 WBC (Bld) 0.6 % High 0.0-0.5 [facility] Leukocytes [#/volume] correc chip for nucleated erythrocytes in Blood by Automated counon 07-18-2024 WBC corrected for nucl RBC Auto (Bld) [#/Vol] Leukocytes [#/volume] corrected for nucleated erythrocytes in Blood by Automated coun 4.0-11.0 [facility] Lymphocytes Auto (Bld) [#/Vo l]on 07-18-2024 Lymphocytes (Bld) [#/Vol] Lymphocytes [#/volume] in Blood by Automated count 1.2-3.8 [facility] Lymphocytes/100 WBC Auto (Bl d)on 07-18-2024 Lymphocytes/100 WBC (Bld) Lymphocytes/100 leukocytes in Blood by Automated count 20.5-60.0 [facility] MCH Auto (RBC) [Entitic mass ]on 07-18-2024 MCH (RBC) [Entitic mass] MCH [Entitic mass] by Automated count 26.7-34.0 [facility] MCHC Auto (RBC) [Mass/Vol]on 07-18-2024 MCHC (RBC) [Mass/Vol] MCHC [Mass/volume] by Automated count 29.9-35.2 [facility] MCV Auto (RBC) [Entitic vol] on 07-18-2024 MCV (RBC) [Entitic vol] MCV [Entitic volume] by Automated count 81.0-99.0 [facility] Monocytes Auto (Bld) [#/Vol] on 07-18-2024 Monocytes (Bld) [#/Vol] Automated blood monocyte count 0.3-0.8 [facility] Monocytes/100 WBC Auto (Bld) on 07-18-2024 Monocytes/100 WBC (Bld) Automated monocyte % 1.7-12.0 [facility] Neutrophils Auto (Bld) [#/Vo l]on 07-18-2024 Neutrophils (Bld) [#/Vol] Neutrophils [#/volume] in Blood by Automated count 1.4-6.5 [facility] Neutrophils/100 WBC Auto (Bl d)on 07-18-2024 Neutrophils/100 WBC (Bld) Automated neutrophil % 43.0-75.0 [facility] No Panel Informationon 07-18 Eosinophils # (Auto) 0.3 10 3/uL 0.0-0.7 [facility] Immature Granulocyte # (Auto) 0.03 10 3/uL 0.00-0.03 [facility] Platelet mean volume Auto (B ld) [Entitic vol]on 07-18-2024 Platelet mean volume (Bld) [Entitic vol] Platelet mean volume [Entitic volume] in Blood by Automated count Low 9.5-13.5 [facility] Platelets Auto (Bld) [#/Vol] on 07-18-2024 Platelets (Bld) [#/Vol] Platelets [#/volume] in Blood by Automated count 150-450 [facility] RBC Auto (Bld) [#/Vol]on RBC (Bld) [#/Vol] Erythrocytes [#/volume] in Blood by Automated count Low 4.20-5.40 [facility] Basophils Auto (Bld) [#/Vol] on 07-12-2024 Basophils (Bld) [#/Vol] Automated basophil count 0.0-0.1 [facility] Basophils/100 WBC Auto (Bld) on 07-12-2024 Basophils/100 WBC (Bld) Automated basophil % 0.2-2.0 [facility] Eosinophils/100 WBC Auto (Bl d)on 07-12-2024 Eosinophils/100 WBC (Bld) Automated eosinophil % 0.9-7.0 [facility] Erythrocyte distribution wid th Auto (RBC) [Ratio]on 07-12-2024 Erythrocyte distribution width (RBC) [Ratio] Erythrocyte distribution width [Ratio] by Automated count 11.0-15.0 [facility] Estimated glomerular filtrat ion rate (GFR) non- Americanon 07-12-2024 GFR/1.73 sq M.predicted among non-blacks MDRD (S/P/Bld) [Vol rate/Area] Estimated glomerular filtration rate (GFR) non- Low >=60 mL/min/1.73 m 2 [facility] Hematocrit Auto (Bld) [Volum e fraction]on 07-12-2024 Hematocrit (Bld) [Volume fraction] Hematocrit [Volume Fraction] of Blood by Automated count Low 36.0-48.0 [facility] Hemoglobin [Mass/volume] in Bloodon 07-12-2024 Hemoglobin (Bld) [Mass/Vol] Hemoglobin [Mass/volume] in Blood Low 12.0-16.0 [facility] Laboratory - Chemistry and C hemistry - challengeon 07-12-2024 Calcium [Mass/Vol] 8.6 mg/dL 8.5-10.1 [facility] Chloride [Moles/Vol] 102 mmol/L 98-107 [facility] [place] CO2 [Moles/Vol] 24.7 mmol/L 21.0-32.0 [facility] Creatinine [Mass/Vol] 1.94 mg/dL High 0.55-1.[address] [facility] GFR/1.73 sq M.predicted MDRD (S/P/Bld) [Vol rate/Area] 31 mL/min/{1.73_m2} Low >=60 mL/min/1.73 m 2 [facility] Glucose [Mass/Vol] 203 mg/dL High 74-106 [facility] Potassium [Moles/Vol] 4.6 mmol/L 3.5-5.[address] [facility] Sodium [Moles/Vol] 137 mmol/L 136-145 [facility] Urea nitrogen [Mass/Vol] 24.0 mg/dL High 7.0-18.0 [facility] Urea nitrogen/Creatinine [Mass ratio] 12.4 mg/mg [facility] Laboratory - Hematology and Cell countson 07-12-2024 Immature granulocytes/100 WBC (Bld) 1.8 % High 0.0-0.5 [facility] Leukocytes [#/volume] correc chip for nucleated erythrocytes in Blood by Automated counon 07-12-2024 WBC corrected for nucl RBC Auto (Bld) [#/Vol] Leukocytes [#/volume] corrected for nucleated erythrocytes in Blood by Automated coun 4.0-11.0 [facility] Lymphocytes Auto (Bld) [#/Vo l]on 07-12-2024 Lymphocytes (Bld) [#/Vol] Lymphocytes [#/volume] in Blood by Automated count 1.2-3.8 [facility] Lymphocytes/100 WBC Auto (Bl d)on 07-12-2024 Lymphocytes/100 WBC (Bld) Lymphocytes/100 leukocytes in Blood by Automated count 20.5-60.0 [facility] MCH Auto (RBC) [Entitic mass ]on 07-12-2024 MCH (RBC) [Entitic mass] MCH [Entitic mass] by Automated count 26.7-34.0 [facility] MCHC Auto (RBC) [Mass/Vol]on 07-12-2024 MCHC (RBC) [Mass/Vol] MCHC [Mass/volume] by Automated count 29.9-35.2 [facility] MCV Auto (RBC) [Entitic vol] on 07-12-2024 MCV (RBC) [Entitic vol] MCV [Entitic volume] by Automated count 81.0-99.0 [facility] Monocytes Auto (Bld) [#/Vol] on 07-12-2024 Monocytes (Bld) [#/Vol] Automated blood monocyte count 0.3-0.8 [facility] Monocytes/100 WBC Auto (Bld) on 07-12-2024 Monocytes/100 WBC (Bld) Automated monocyte % 1.7-12.0 [facility] Neutrophils Auto (Bld) [#/Vo l]on 07-12-2024 Neutrophils (Bld) [#/Vol] Neutrophils [#/volume] in Blood by Automated count 1.4-6.5 [facility] Neutrophils/100 WBC Auto (Bl d)on 07-12-2024 Neutrophils/100 WBC (Bld) Automated neutrophil % 43.0-75.0 [facility] No Panel Informationon 07-12 Eosinophils # (Auto) 0.2 10 3/uL 0.0-0.[address] [facility] Immature Granulocyte # (Auto) 0.13 10 3/uL High 0.00-0.03 [facility] Platelet mean volume Auto (B ld) [Entitic vol]on 07-12-2024 Platelet mean volume (Bld) [Entitic vol] Platelet mean volume [Entitic volume] in Blood by Automated count 9.5-13.5 [facility] Platelets Auto (Bld) [#/Vol] on 07-12-2024 Platelets (Bld) [#/Vol] Platelets [#/volume] in Blood by Automated count 150-450 [facility] RBC Auto (Bld) [#/Vol]on RBC (Bld) [#/Vol] Erythrocytes [#/volume] in Blood by Automated count Low 4.20-5.40 [facility] Serum or plasma anion gap de terminationon 07-12-2024 Anion gap [Moles/Vol] Serum or plasma an ion gap determination [facility] ANION GAPon 07-11-2024 Anion gap [Moles/Vol] 10.0 mmol/L Normal 8.0-16.0 [facility] Comment on above: Result Comment: ANIO N GAP = Sodium -(Chloride + CO2) Performed By: #### P OCGL #### [facility] [address] [place] [address] Anion Gapon 07-11-2024 Anion gap [Moles/Vol] 10 mmol/L 8.0 - 16.0 meq/L [facility] Comment on above: ANION GAP = Sodium - (Chloride + CO2) Performed at [facility] [address] [place] [id number] BASIC METABOL PANELon 2024 Calcium [Mass/Vol] 8.9 mg/dL Normal 8.8-10.2 [facility] Comment on above: Performed By: #### P OCGL #### [facility] [address] [place] [address] CO2 [Moles/Vol] 22 mmol/L Normal 22-29 [facility] Comment on above: Performed By: #### P OCGL #### [facility] [address] [place] [address] Creatinine [Mass/Vol] 1.0 mg/dL High 0.5-0.9 [facility] Comment on above: Performed By: #### P OCGL #### [facility] [address] [place] [address] Glucose [Mass/Vol] 166 mg/dL High 74-109 [facility] Comment on above: Performed By: #### P OCGL #### [employer] [address] [place] [address] Urea nitrogen [Mass/Vol] 16 mg/dL Normal 8-23 [facility] Comment on above: Performed By: #### P OCGL #### [address] [address] Chloride [Moles/Vol] 103 mmol/L Normal 98-111 [facility] Comment on above: Performed By: #### P OCGL #### [address] [address] Potassium [Moles/Vol] 4.7 mmol/L Normal 3.5-5.2 [facility] Comment on above: Result Comment: Low level specimen hemolysis is present as indicated by the interference index on the Yamilet analyzer. ??The reported K+ level may be falsely increased. If clinically warranted, recollection of the specimen is suggested. Performed By: #### P OCGL #### [address] [address] Sodium [Moles/Vol] 135 mmol/L Normal 135-145 [facility] Comment on above: Performed By: #### P OCGL #### [address] [address] Basic metabolic 2000 panelon 07-11-2024 Calcium [Mass/Vol] 8.9 mg/dL 8.8 - 10. 2 mg/dL [email or web address] Comment on above: Performed at [facility] [place] [address] [place] [address] Chloride [Moles/Vol] 103 mmol/L 98 - 11 1 meq/L [email or web address] CO2 [Moles/Vol] 22 mmol/L 22 - 29 meq/L [email or web address] Creatinine [Mass/Vol] 1.0 mg/dL High 0.5 - 0.9 mg/dL [email or web address] Glucose [Mass/Vol] 166 mg/dL High 74 - 109 mg/dL [email or web address] Interpretation and review of laboratory results Abnormal [facility] linkedü Potassium [Moles/Vol] 4.7 mmol/L 3.5 - 5.2 meq/L [email or web address] Comment on above: Low level specimen h emolysis is present as indicated by the interference index on the Yamilet analyzer. The reported K+ level may be falsely increased. If clinically warranted, recollection of the specimen is suggested. Sodium [Moles/Vol] 135 mmol/L 135 - 145 meq/L [facility] Urea nitrogen [Mass/Vol] 16 mg/dL 8 - 23 mg/dL [facility] GFR, ESTIMATEDon 07-11-2024 GFR/1.73 sq M.predicted MDRD (S/P/Bld) [Vol rate/Area] 62 mL/min/{1.73_m2} Normal >60 [facility] Comment on above: Pediatric calculator [...] that affects renal tubular secretion. Performed [place] [address] Result Comment: Pedi atric calculator link [email or web address]://www.kidney.org/professionals/kdoqi/gfr_calculatorped [...] secretion. Performed By: #### P OCGL #### [employer] [address] [place] [address] GLUCOSE POCon 07-11-2024 Glucose [Mass/Vol] 177 mg/dL High 70-108 [facility] Comment on above: Performed at [facility] [address] [place] [address] Performed By: #### P OCGL #### [employer] [address] [place], [place] [id number] Glucose Auto test strip (Bld ) [Mass/Vol]on 07-11-2024 Interpretation and review of laboratory results Abnormal [facility] HGB,HCTon 07-11-2024 Hematocrit (Bld) [Volume fraction] 33.4 % Low 37.0-47.0 [facility] Comment on above: Performed at [facility] [address] [place] [address] Performed By: #### P OCGL #### [facility] [address] [place] [address] Hemoglobin (Bld) [Mass/Vol] 10.8 g/dL Low 12.0-16.0 [facility] Comment on above: Performed By: #### P OCGL #### [facility] [employer] [address] [place] [address] Hemoglobin and Hematocrit pa bhavna (Bld)on 07-11-2024 Interpretation and review of laboratory results Abnormal [facility] No Panel Informationon 07-11 [facility] ANION GAPon 07-10-2024 Anion gap [Moles/Vol] 8.0 mmol/L Normal 8.0-16.0 [facility] Comment on above: Result Comment: ANIO N GAP = Sodium -(Chloride + CO2) Performed By: #### P OCGL #### [facility] [place] [address] Anion Gapon 07-10-2024 Anion gap [Moles/Vol] 8 mmol/L 8.0 - 16.0 meq/L [facility] Comment on above: ANION GAP = Sodium - (Chloride + CO2) Performed at [employer] [facility] [address] [place] [address] BASIC METABOL PANELon 2024 Calcium [Mass/Vol] 8.8 mg/dL Normal 8.8-10.2 [facility] Comment on above: Performed By: #### P OCGL #### [employer] [address] [place] [address] CO2 [Moles/Vol] 26 mmol/L Normal 22-29 [facility] Comment on above: Performed By: #### P OCGL #### [facility] [address] [place] [address] 70831 Creatinine [Mass/Vol] 1.1 mg/dL High 0.5-0.9 [facility] Comment on above: Performed By: #### P OCGL #### [facility] [address] [place] [address] 12831 Glucose [Mass/Vol] 198 mg/dL High 74-109 [facility] Comment on above: Performed By: #### P OCGL #### [facility] [address] [place] [address] 07724 Urea nitrogen [Mass/Vol] 24 mg/dL High 8-23 [facility] Comment on above: Performed By: #### P OCGL #### [facility] [address] [place] [address] 43972 Chloride [Moles/Vol] 101 mmol/L Normal 98-111 [facility] Comment on above: Performed By: #### P OCGL #### [facility] [employer] [address] [place] [address] 22463 Potassium [Moles/Vol] 4.6 mmol/L Normal 3.5-5.2 [facility] Comment on above: Performed By: #### P OCGL #### [facility] [address] [place] [address] 17370 Sodium [Moles/Vol] 135 mmol/L Normal 135-145 [facility] Comment on above: Performed By: #### P OCGL #### [facility] [employer] [address] [place] [address] 21612 Basic metabolic 2000 panelon 07-10-2024 Calcium [Mass/Vol] 8.8 mg/dL 8.8 - 10. 2 mg/dL [facility] Comment on above: Performed at [facility] [place] [address] [place] [address]114 Chloride [Moles/Vol] 101 mmol/L 98 - 11 1 meq/L [facility] CO2 [Moles/Vol] 26 mmol/L 22 - 29 meq/L [facility] Creatinine [Mass/Vol] 1.1 mg/dL High 0.5 - 0.9 mg/dL [facility] Glucose [Mass/Vol] 198 mg/dL High 74 - 109 mg/dL [facility] [employer] Potassium [Moles/Vol] 4.6 mmol/L 3.5 - 5.2 meq/L [facility] [employer] Sodium [Moles/Vol] 135 mmol/L 135 - 145 meq/L [facility] [employer] Urea nitrogen [Mass/Vol] 24 mg/dL High 8 - 23 mg/dL [email or web address] GFR, ESTIMATEDon 07-10-2024 GFR/1.73 sq M.predicted MDRD (S/P/Bld) [Vol rate/Area] 56 mL/min/{1.73_m2} Abnormal >60 [email or web address] Comment on above: Pediatric calculator link https://www.kidney.org/professionals/kdoqi/gfr_calculatorped [...] that affects renal tubular secretion. Performed [place] [address] Result Comment: Pedi atric calculator link https://www.kidney.org/professionals/kdoqi/gfr_calculatorped [...] secretion. Performed By: #### P OCGL #### [employer] [address] [place] [address] GLUCOSE POCon 07-10-2024 Glucose [Mass/Vol] 267 mg/dL High 70-108 [facility] [employer] Comment on above: Performed at [facility] [employer] [facility] [address] [place] [address] Performed By: #### P OCGL #### [employer] [address] [place] [address]105 Glucose [Mass/Vol] 154 mg/dL High 70-108 [facility] Comment on above: Performed at [facility] [place] [address] [place] [address] Performed By: #### P OCGL #### [facility] [address] [place] [address] Glucose [Mass/Vol] 302 mg/dL High 70-108 [facility] Comment on above: Performed at [facility] [place] [address] [place] [address] Performed By: #### P OCGL #### [facility] [address] [place] [address] 45348 Glucose [Mass/Vol] 205 mg/dL High 70-108 [facility] Comment on above: Performed at [facility] [place] [address] [place] [address] Performed By: #### P OCGL #### [address] [address] Glucose Auto test strip (Bld ) [Mass/Vol]on 07-10-2024 Interpretation and review of laboratory results Abnormal [facility] Interpretation and review of laboratory results Abnormal [facility] Interpretation and review of laboratory results Abnormal [facility] Interpretation and review of laboratory results Abnormal [facility] HGB,HCTon 07-10-2024 Hematocrit (Bld) [Volume fraction] 32.2 % Low 37.0-47.0 [facility] Comment on above: Performed at [facility] [place] [address] [place] [address] Performed By: #### P OCGL #### [facility] [address] [place] [address] 78071 Hemoglobin (Bld) [Mass/Vol] 10.0 g/dL Low 12.0-16.0 [facility] Comment on above: Performed By: #### P OCGL #### [facility] [address] [place] [address] 23473 Hemoglobin and Hematocrit pa bhavna (Bld)on 07-10-2024 Hemoglobin (Bld) [Mass/Vol] 10 g/dL Low [facility] Interpretation and review of laboratory results Abnormal [facility] No Panel Informationon 07-10 Interpretation and review of laboratory results Abnormal [facility] ANION GAPon 07-09-2024 Anion gap [Moles/Vol] 10.0 mmol/L Normal 8.0-16.0 [facility] Comment on above: Result Comment: ANIO N GAP = Sodium -(Chloride + CO2) Performed By: #### P OCGL #### [facility] [address] [place] [address] 55205 Anion Gapon 07-09-2024 Anion gap [Moles/Vol] 10 mmol/L 8.0 - 16.0 meq/L [facility] Comment on above: ANION GAP = Sodium - (Chloride + CO2) Performed at [facility] [address] [place] [address] 67014 BASIC METABOL PANELon 2024 Calcium [Mass/Vol] 8.3 mg/dL Low 8.8-10.2 [facility] Comment on above: Performed By: #### P OCGL #### [address] [address] CO2 [Moles/Vol] 23 mmol/L Normal 22-29 [facility] Comment on above: Performed By: #### P OCGL #### [facility] [address] [place] [address] 16309 Creatinine [Mass/Vol] 1.1 mg/dL High 0.5-0.9 [facility] Comment on above: Performed By: #### P OCGL #### [facility] [address] [place] [address] 98278 Glucose [Mass/Vol] 197 mg/dL High 74-109 [facility] Comment on above: Performed By: #### P OCGL #### [facility] [address] [place] [address] 80309 Urea nitrogen [Mass/Vol] 21 mg/dL Normal 8-23 [facility] Comment on above: Performed By: #### P OCGL #### [facility] [address] [place] [address] 94520 Chloride [Moles/Vol] 103 mmol/L Normal 98-111 [facility] Comment on above: Performed By: #### P OCGL #### [facility] [address] [place] [address] Potassium [Moles/Vol] 5.8 mmol/L High 3.5-5.2 [facility] Comment on above: Performed By: #### P OCGL #### [facility] [address] [place] [address] Sodium [Moles/Vol] 136 mmol/L Normal 135-145 [facility] Comment on above: Performed By: #### P OCGL #### [facility] [address] [place] [address] Basic metabolic 2000 panelon 07-09-2024 Calcium [Mass/Vol] 8.3 mg/dL Low 8.8 - 10. 2 mg/dL [facility] Comment on above: Performed at [facility] [place] [address] [place] [address] Chloride [Moles/Vol] 103 mmol/L 98 - 11 1 meq/L [employer] [email or web address] CO2 [Moles/Vol] 23 mmol/L 22 - 29 meq/L [facility] Creatinine [Mass/Vol] 1.1 mg/dL High 0.5 - 0.9 mg/dL [facility] Glucose [Mass/Vol] 197 mg/dL High 74 - 109 mg/dL [employer] [facility] Potassium [Moles/Vol] 5.8 mmol/L High 3.5 - 5.2 meq/L [facility] Sodium [Moles/Vol] 136 mmol/L 135 - 145 meq/L [email or web address] Urea nitrogen [Mass/Vol] 21 mg/dL 8 - 23 mg/dL [facility] GFR, ESTIMATEDon 07-09-2024 GFR/1.73 sq M.predicted MDRD (S/P/Bld) [Vol rate/Area] 56 mL/min/{1.73_m2} Abnormal >60 [facility] Comment on above: Pediatric calculator link https://www.kidney.org/professionals/kdoqi/gfr_calculatorped [...] that affects renal tubular secretion. [place] [address] Result Comment: Soniya atric calculator link https://www.kidney.org/professionals/kdoqi/gfr_calculatorped [...] secretion. Performed By: #### P OCGL #### [facility] [place] [address] GLUCOSE POCon 07-09-2024 Glucose [Mass/Vol] 211 mg/dL High 70-[address] [facility] Comment on above: Performed at [facility] [employer] [facility] [address] [place] [address] Performed By: #### P OCGL #### [place] [address] Glucose [Mass/Vol] 212 mg/dL High 70-[address] [facility] Comment on above: Performed at [facility] [employer] [facility] [address] [place] [address] Performed By: #### P OCGL #### [place] [address] Glucose [Mass/Vol] 169 mg/dL High 70-[address] [facility] Comment on above: Performed at [facility] [employer] [facility] [address] [place] [address] Performed By: #### P OCGL #### [facility] [place] [address] Glucose [Mass/Vol] 229 mg/dL High 70-[address] [facility] Comment on above: Performed at [facility] [employer] [facility] [address] [place] [address] Performed By: #### P OCGL #### [facility] [address] [place] [address] Glucose [Mass/Vol] 203 mg/dL High 70-108 [facility] Comment on above: Performed at [facility] [place] [address] [place] [address] Performed By: #### P OCGL #### [facility] [address] [place] [address] HGB,HCTon 07-09-2024 Hematocrit (Bld) [Volume fraction] 36.7 % Low 37.0-47.0 [facility] Comment on above: Performed at [facility] [place] [address] [place] [address] Performed By: #### P OCGL #### [place] [address] Hemoglobin (Bld) [Mass/Vol] 11.9 g/dL Low 12.0-16.0 [facility] Comment on above: Performed By: #### P OCGL #### [facility] [address] [place] [address] No Panel Informationon 07-09 Interpretation and review of laboratory results Abnormal [facility] POTASSIUMon 07-09-2024 Potassium [Moles/Vol] 4.7 mmol/L Normal 3.5-5.2 [facility] Comment on above: Performed By: #### K P #### [facility] [place] [address] Potassiumon 07-09-2024 Potassium [Moles/Vol] 4.7 mmol/L 3.5 - 5.2 meq/L [facility] Comment on above: Performed at [facility] [place] [address] [place] [address] GLUCOSE POCon 07-08-2024 Glucose [Mass/Vol] 266 mg/dL High 70-108 [facility] Comment on above: Performed at [facility] [employer] [facility] [address] [place] [address] Performed By: #### P OCGL #### [facility] [address] [place] [address] Glucose [Mass/Vol] 120 mg/dL High 70-108 [facility] Comment on above: Performed at [facility] [employer] [facility] [address] [place] [address] Performed By: #### P OCGL #### [facility] [address] [place] [address] Glucose [Mass/Vol] 105 mg/dL Normal 70-108 [facility] Comment on above: Performed at [facility] [employer] [facility] [address] [place] [address] Performed By: #### P OCGL #### [facility] [address] [place] [address]478 Glucose [Mass/Vol] 136 mg/dL High 70-108 [facility] Comment on above: Performed at [facility] [employer] [facility] [address] [place] [address] Performed By: #### P OCGL #### [facility] [address] [place] [address] 42670 Glucose Auto test strip (Bld ) [Mass/Vol]on 07-08-2024 Interpretation and review of laboratory results Abnormal [facility] Interpretation and review of laboratory results Abnormal [facility] Interpretation and review of laboratory results Abnormal [facility] XR LUMBAR SPINE 1 VWon 07-08 [...] Boo Headley MD 07/08/24 Final result Normal [facility] XR Lumbar spine Single viewo n 07-08-2024 1. Evidence of posterior fusion at L4-L5. Please refer to operative report for further details. This report has been created using voice recognition software. It may contain minor errors which are inherent in voice recognition technology. Electronically signed by Dr. Jerrod Betts [facility] Sivakumar Betts MD - 07/08/2024 PROCEDURE: [...] technology. Electronically signed by Dr. Jerrod Betts [facility] Radiology Study observation (narrative) [facility] Intraoperative appearance of the lumbar spine. This report has been created using voice recognition software. It may contain minor errors which are inherent in voice recognition technology. Electronically signed by Dr. Boo Hedaley [facility] MOBILE LATERAL LUMBA R SPINE: CLINICAL INFORMATION: surgery. L3-L5 decompression. L4-L5- fusion COMPARISON: No prior study. TECHNIQUE: A single lateral mobile view of the lumbar spine was obtained For localization purposes. FINDINGS: 2 spinal needles are present posteriorly directed at the L4 and L5 levels. [facility] Boo Sheth MD - 07/08/2024 MOBILE LATERAL LUMBAR SPINE: [...] technology. Electronically signed by Dr. Boo Headley [facility] Radiology Study observation (narrative) [facility] XR Lumbar spine Single viewO rdered By: Sivakumar Betts on 07-08-2024 [facility] Work Phone: XR Lumbar spine Single viewO rdered By: Boo Headley on 07-08-2024 [facility] Work Phone: ANION GAPon 07-07-2024 Anion gap [Moles/Vol] 14.0 mmol/L Normal 8.0-16.0 [facility] Comment on above: Result Comment: ANIO N GAP = Sodium -(Chloride + CO2) Performed By: #### B MP, EGFR1, CBCND, ANION #### [facility] [address] [place] [address] Anion Gapon 07-07-2024 Anion gap [Moles/Vol] 14 mmol/L 8.0 - 16.0 meq/L [facility] Comment on above: ANION GAP = Sodium - (Chloride + CO2) Performed at [facility] [address] [place] [address] BASIC METABOL PANELon 2024 CO2 [Moles/Vol] 21 mmol/L Low 22-29 [facility] Comment on above: Performed By: #### B MP, EGFR1, CBCND, ANION #### [facility] [address] [place] [address] 12498 Creatinine [Mass/Vol] 1.0 mg/dL High 0.5-0.9 [facility] Comment on above: Performed By: #### B MP, EGFR1, CBCND, ANION #### [facility] [address] [address] Glucose [Mass/Vol] 172 mg/dL High 74-109 [facility] Comment on above: Performed By: #### B MP, EGFR1, CBCND, ANION #### [facility] [address] [place] [address] 79965 Urea nitrogen [Mass/Vol] 33 mg/dL High 8-23 [facility] Comment on above: Performed By: #### B MP, EGFR1, CBCND, ANION #### [facility] [address] [place] [address]16 Calcium [Mass/Vol] 9.2 mg/dL Normal 8.8-10.2 [facility] Comment on above: Performed By: #### B MP, EGFR1, CBCND, ANION #### [facility] [address] [place] [address]71 Chloride [Moles/Vol] 103 mmol/L Normal 98-111 [facility] Comment on above: Performed By: #### B MP, EGFR1, CBCND, ANION #### [address] [address] Potassium [Moles/Vol] 4.4 mmol/L Normal 3.5-5.2 [facility] Comment on above: Result Comment: Low level specimen hemolysis is present as indicated by the interference index on the [employer] analyzer. ??The reported K+ level may be falsely increased. If clinically warranted, recollection of the specimen is suggested. Performed By: #### B MP, EGFR1, CBCND, ANION #### [address] [address] Sodium [Moles/Vol] 138 mmol/L Normal 135-145 [facility] Comment on above: Performed By: #### B MP, EGFR1, CBCND, ANION #### [address] [address] Basic metabolic 2000 panelon 07-07-2024 Calcium [Mass/Vol] 9.2 mg/dL 8.8 - 10. 2 mg/dL [email or web address] Comment on above: Performed at [facility] [place] [address] [place] [address] Chloride [Moles/Vol] 103 mmol/L 98 - 11 1 meq/L [employer] [email or web address] CO2 [Moles/Vol] 21 mmol/L Low 22 - 29 meq/L [employer] [email or web address] Creatinine [Mass/Vol] 1.0 mg/dL High 0.5 - 0.9 mg/dL [employer] [email or web address] Glucose [Mass/Vol] 172 mg/dL High 74 - 109 mg/dL [facility] Interpretation and review of laboratory results Abnormal [facility] [employer] Potassium [Moles/Vol] 4.4 mmol/L 3.5 - 5.2 meq/L [email or web address] Comment on above: Low level specimen h emolysis is present as indicated by the interference index on the [employer] analyzer. The reported K+ level may be falsely increased. If clinically warranted, recollection of the specimen is suggested. Sodium [Moles/Vol] 138 mmol/L 135 - 145 meq/L [facility] Urea nitrogen [Mass/Vol] 33 mg/dL High 8 - 23 mg/dL [facility] CBCon 07-07-2024 Erythrocyte distribution width (RBC) [Entitic vol] 40.3 fL 35.0 - 45.0 fL [facility] Platelets (Bld) [#/Vol] 236 10*3/uL [facility] RBC (Bld) [#/Vol] 4.73 10*6/uL [facility] WBC (Bld) [#/Vol] 8.6 10*3/uL [facility] Se cours [facility] CBC NO DIFFERENTIALon 2024 Erythrocyte distribution width (RBC) [Ratio] 12.6 % Normal 11.5-14.5 [facility] Comment on above: Performed By: #### B MP, EGFR1, CBCND, ANION #### [employer] [address] [place] [address] Hematocrit (Bld) [Volume fraction] 41.6 % Normal 37.0-47.0 [facility] Comment on above: Performed By: #### B MP, EGFR1, CBCND, ANION #### [employer] [address] [place] [address] Hemoglobin (Bld) [Mass/Vol] 13.5 g/dL Normal 12.0-16.0 [facility] Comment on above: Performed By: #### B MP, EGFR1, CBCND, ANION #### [facility] [address] [place] [address] 72070 MCH (RBC) [Entitic mass] 28.5 pg Normal 26.0-33.0 [facility] Comment on above: Performed By: #### B MP, EGFR1, CBCND, ANION #### [employer] [address] [place] [address]87 MCHC (RBC) [Mass/Vol] 32.5 g/dL Normal 32.2-35.5 [facility] Comment on above: Performed By: #### B MP, EGFR1, CBCND, ANION #### [employer] [address] [place] [address] 27042 MCV (RBC) [Entitic vol] 87.9 fL Normal 81.0-99.0 [facility] Comment on above: Performed By: #### B MP, EGFR1, CBCND, ANION #### [place] [address] PLATELET 236 thou/mm3 Normal 130-400 [facility] Comment on above: Performed By: #### B MP, EGFR1, CBCND, ANION #### [facility] [place] [address] Platelet mean volume (Bld) [Entitic vol] 9.6 fL Normal 9.4-12.4 [facility] Comment on above: Performed at [facility] [address] [place] [address] Performed By: #### B MP, EGFR1, CBCND, ANION #### [facility] [place] [address] RBC 4.73 mill/mm3 Normal 4.20-5.40 [facility] Comment on above: Performed By: #### B MP, EGFR1, CBCND, ANION #### [place] [address] RDW-SD 40.3 fL Normal 35.0-45.0 [facility] Comment on above: Performed By: #### B MP, EGFR1, CBCND, ANION #### [place] [address] WBC 8.6 thou/mm3 Normal 4.8-10.8 [facility] Comment on above: Performed By: #### B MP, EGFR1, CBCND, ANION #### [facility] [place] [address] GFR, ESTIMATEDon 07-07-2024 GFR/1.73 sq M.predicted MDRD (S/P/Bld) [Vol rate/Area] 62 mL/min/{1.73_m2} Normal >60 [facility] Comment on above: Pediatric calculator [...] that affects renal tubular secretion. [place] [address] Result Comment: Soniya hernándezc calculator link https://www.kidney.org/professionals/kdoqi/gfr_calculatorped Effective Jan 25, 2022 [...] #### B MP, EGFR1, CBCND, ANION #### [place] [address] GLUCOSE POCon 07-07-2024 Glucose [Mass/Vol] 271 mg/dL High 70-108 [facility] Comment on above: Performed at [facility] [facility] [address] [place] [address] Performed By: #### P OCGL #### [place] [address] Glucose [Mass/Vol] 188 mg/dL High 70-108 [facility] Comment on above: Performed at [facility] [address] [place] [address] Performed By: #### P OCGL #### [place] [address] Glucose [Mass/Vol] 174 mg/dL High 70-108 [facility] Comment on above: Performed at [facility] [address] [place] [address] Performed By: #### P OCGL #### [place] [address] Glucose [Mass/Vol] 76 mg/dL Normal 70-108 [facility] Comment on above: Performed at [facility] [address] [place] [address] Performed By: #### P OCGL #### [facility] [address] [place] [address] Glomerular Filtration Rate, Estimatedon 07-07-2024 [facility] [employer] Glucose Auto test strip (Bld ) [Mass/Vol]on 07-07-2024 Interpretation and review of laboratory results Abnormal [facility] [facility] Interpretation and review of laboratory results [facility]normal [facility] Interpretation and review of laboratory results Abnormal [facility] CenterHuggler.com No Panel Informationon 07-07 [facility] CADFORCE XR CHEST (2 VW)on 07-07-2024 XR CHEST [...] Kj Epps MD 07/07/24 Final result Normal [facility] XR Chest 2 Viewson Impression: No acute cardiopulmonary disease. This document has been electronically signed by: Kj Epps MD on 07/07/2024 02:22 AM [facility] Chest X-ray: 2 views . Indication: Pulmonary congestion. Comparison: None Findings: The lungs are well aerated. No focal consolidation, or pleural effusion. The cardiac silhouette is normal in size. Bony thorax is grossly intact. Bilateral shoulder arthroplasty. External metallic density versus surgical hardware projects on the lower cervical spine. [facility] Kj Epps MD - 07/07/2024 Chest X-ray: [...] Kj Epps MD on 07/07/2024 02:22 AM [facility] Radiology Study observation (narrative) [facility] XR Chest 2 ViewsOrdered By: Kj Epps on 07-07-2024 [facility] ANION GAPon 07-06-2024 Anion gap [Moles/Vol] 14.0 mmol/L Normal 8.0-16.0 [facility] Comment on above: Result Comment: ANIO N GAP = Sodium -(Chloride + CO2) Performed By: #### P OCGL #### [place] [address] APTTon 07-06-2024 aPTT Coag (Bld) [Time] 29.5 s Normal 22.0-38.0 [facility] Comment on above: Result Comment: Ther apeutic Heparin Reference Range= 60-95 seconds (corresponds to 0.3 to 0.7 u/mL Anti-Xa factor activity) Performed By: #### P OCGL #### [place] [address] Anion Gapon 07-06-2024 Anion gap [Moles/Vol] 14 mmol/L 8.0 - 16.0 meq/L [facility] Comment on above: ANION GAP = Sodium - (Chloride + CO2) Performed at [facility] [address] [place] [address] CBC WITH DIFFERENTIALon 06-23 ABS BASOPHILS 0.0 thou/mm3 Normal 0.0-0.1 [facility] Comment on above: Performed By: #### P OCGL #### [facility] [address] [place] [address] ABS EOSINOPHILS 0.0 thou/mm3 Normal 0.0-0.4 [facility] Comment on above: Performed By: #### P OCGL #### [facility] [address] [place] [address] ABS IMMATURE GRANS (IG) 0.05 thou/mm3 Normal 0.00-0.07 [facility] Comment on above: Performed By: #### P OCGL #### [address] [address] ABS LYMPHOCYTES 2.8 thou/mm3 Normal 1.0-4.8 [facility] Comment on above: Performed By: #### P OCGL #### [address] [address] ABS MONOCYTES 0.8 thou/mm3 Normal 0.4-1.3 [facility] Comment on above: Performed By: #### P OCGL #### [address] [address] ABS NEUTROPHILS 7.9 thou/mm3 High 1.8-7.7 [facility] Comment on above: Performed By: #### P OCGL #### [address] [address] Basophils/100 WBC (Bld) 0.2 % Normal [facility] Comment on above: Performed By: #### P OCGL #### [address] [address] Eosinophils/100 WBC (Bld) 0.3 % Normal [facility] Comment on above: Performed By: #### P OCGL #### [address] [address] Erythrocyte distribution width (RBC) [Ratio] 12.5 % Normal 11.5-14.5 [facility] Comment on above: Performed By: #### P OCGL #### [address] [address] Hematocrit (Bld) [Volume fraction] 42.6 % Normal 37.0-47.0 [facility] Comment on above: Performed By: #### P OCGL #### [address] [address] Hemoglobin (Bld) [Mass/Vol] 13.8 g/dL Normal 12.0-16.0 [facility] Comment on above: Performed By: #### P OCGL #### [address] [address] IMMATURE GRANS (IG) 0.4 % Normal [facility] Comment on above: Performed By: #### P OCGL #### [address] [address] Lymphocytes/100 WBC (Bld) 24.0 % Normal [facility] Comment on above: Performed By: #### P OCGL #### [address] [address] MCH (RBC) [Entitic mass] 28.6 pg Normal 26.0-33.0 [facility] Comment on above: Performed By: #### P OCGL #### [address] [address] MCHC (RBC) [Mass/Vol] 32.4 g/dL Normal 32.2-35.5 [facility] Comment on above: Performed By: #### P OCGL #### [address] [address] MCV (RBC) [Entitic vol] 88.2 fL Normal 81.0-99.0 [facility] Comment on above: Performed By: #### P OCGL #### [address] [address] Monocytes/100 WBC (Bld) 6.8 % Normal [facility] Comment on above: Performed By: #### P OCGL #### [address] [address] Neutrophils/100 WBC (Bld) 68.3 % Normal [facility] Comment on above: Performed By: #### P OCGL #### [address] [address] NRBC 0 /100 wbc Normal [facility] Comment on above: Performed By: #### P OCGL #### [address] [address] PLATELET 274 thou/mm3 Normal 130-400 [facility] Comment on above: Performed By: #### P OCGL #### [address] [address] Platelet mean volume (Bld) [Entitic vol] 9.7 fL Normal 9.4-12.4 [facility] Comment on above: Performed By: #### P OCGL #### [place] [id number] RBC 4.83 mill/mm3 Normal 4.20-5.40 [facility] Comment on above: Performed By: #### P OCGL #### [place] [address] RDW-SD 39.9 fL Normal 35.0-45.0 [facility] Comment on above: Performed By: #### P OCGL #### [facility] [address] [place] [address] WBC 11.6 thou/mm3 High 4.8-10.8 [facility] Comment on above: Performed By: #### P OCGL #### [place] [address] CBC with Auto Differentialon 07-06-2024 Basophils (Bld) [...] [facility] Comment on above: Performed at [facility] [address] [place] [address] Platelets (Bld) [#/Vol] 274 10*3/uL [facility] RBC (Bld) [#/Vol] 4.83 10*6/uL [facility] WBC (Bld) [#/Vol] 11.6 10*3/uL High [facility] COMP. METABOLIC PANELon 06-23 Albumin [Mass/Vol] 4.3 g/dL Normal 3.4-4.9 [facility] Comment on above: Performed By: #### P OCGL #### [facility] [address] [place] [address] ALP [Catalytic activity/Vol] 65 U/L Normal 35-104 [facility] Comment on above: Performed By: #### P OCGL #### [facility] [address] [address] ALT [Catalytic activity/Vol] 24 U/L Normal 10-35 [facility] Comment on above: Performed By: #### P OCGL #### [facility] [address] [place] [address] AST [Catalytic activity/Vol] 23 U/L Normal 10-35 [facility] Comment on above: Performed By: #### P OCGL #### [address] [address] Bilirubin [Mass/Vol] 0.4 mg/dL Normal 0.3-1.2 [facility] Comment on above: Performed By: #### P OCGL #### [address] [address] Calcium [Mass/Vol] 9.6 mg/dL Normal 8.8-10.2 [facility] Comment on above: Performed By: #### P OCGL #### [address] [address] CO2 [Moles/Vol] 26 mmol/L Normal 22-29 [facility] Comment on above: Performed By: #### P OCGL #### [address] [address] Creatinine [Mass/Vol] 1.3 mg/dL High 0.5-0.9 [facility] Comment on above: Performed By: #### P OCGL #### [facility] [address] [place] [address] Glucose [Mass/Vol] 259 mg/dL High 74-109 [facility] Comment on above: Performed By: #### P OCGL #### [facility] [address] [place] [address] Protein [Mass/Vol] 7.2 g/dL Normal 6.4-8.3 [facility] Comment on above: Performed By: #### P OCGL #### [facility] [employer] [address] [address] Urea nitrogen [Mass/Vol] 43 mg/dL High 8-23 [facility] Comment on above: Performed By: #### P OCGL #### [address] [address] Chloride [Moles/Vol] 96 mmol/L Low 98-111 [facility] Comment on above: Performed By: #### P OCGL #### [address] [address] POTASSIUM WITH REFLEX MG 5.0 meq/L Normal 3.5-5.2 [facility] Comment on above: Result Comment: Low level specimen hemolysis is present as indicated by the interference index on the Yamilet analyzer. ??The reported K+ level may be falsely increased. If clinically warranted, recollection of the specimen is suggested. Performed By: #### P OCGL #### [facility] [employer] [address] [address] Sodium [Moles/Vol] 136 mmol/L Normal 135-145 [facility] Comment on above: Performed By: #### P OCGL #### [address] [address] Comprehensive metabolic 2000 panelon 07-06-2024 Albumin BCG dye [Mass/Vol] 4.3 g/dL 3.4 - 4.9 g/dL [facility] ALP [Catalytic activity/Vol] 65 U/L 35 - 104 U/L [facility] linkedü ALT No additional P-5'-P [Catalytic activity/Vol] 24 U/L 10 - 35 U/L [facility] Comment on above: Performed at [facility] [place] ion [facility] [address] [place] [address] AST [Catalytic activity/Vol] 23 U/L 10 - 35 U/L [facility] linkedü Bilirubin [Mass/Vol] 0.4 mg/dL 0.3 - 1 .2 mg/dL [facility] Calcium [Mass/Vol] 9.6 mg/dL 8.8 - 10. 2 mg/dL [facility] Chloride [Moles/Vol] 96 mmol/L Low 98 - 11 1 meq/L [facility] linkedü CO2 [Moles/Vol] 26 mmol/L 22 - 29 meq/L [facility] linked[employer] Creatinine [Mass/Vol] 1.3 mg/dL High 0.5 - 0.9 mg/dL [facility] linkedü Glucose [Mass/Vol] 259 mg/dL High 74 - 109 mg/dL [facility] linkedü Potassium [Moles/Vol] 5.0 mmol/L 3.5 - 5.2 meq/L [facility] linkedü Comment on above: Low level specimen h emolysis is present as indicated by the interference index on the Yamilet analyzer. The reported K+ level may be falsely increased. If clinically warranted, recollection of the specimen is suggested. Protein [Mass/Vol] 7.2 g/dL 6.4 - 8.3 g/dL [facility] linkedü Sodium [Moles/Vol] 136 mmol/L 135 - 145 meq/L [facility] linkedü Urea nitrogen [Mass/Vol] 43 mg/dL High 8 - 23 mg/dL [facility] linkedü EKG 12 leadOrdered By: Kp Rodriges on 07-06-2024 Atrial Rate 68 BPM [facility] Center[facility] linkedü Work Phone: P [place] 58 degrees [facility] linkedü Work Phone: P-R Interval 146 ms [facility] linkedü Work Phone: Q-T Interval 422 ms [facility] linkedü Work Phone: QRS Duration 82 ms [facility] linkedü Work Phone: QTc Calculation (Bazett) 448 ms [facility] [employer] linkedü Work Phone: R [place] 67 degrees [facility] linkedü Work Phone: T [place] 66 degrees [facility] linkedü Work Phone: Ventricular Rate 68 BPM [facility] RANK PRODUCTIONSKadlec Regional Medical CenterAquaHydrate Work Phone: [facility] linkedü Work Phone: EKG 12 leadon 07-06-2024 Normal sinus rhythm Possible Left atrial enlargement ST & T wave abnormality, consider anterior ischemia Abnormal ECG No previous ECGs available Clinical correlation is indicated Confirmed by Kp Rodriges ([id number]) on 07/06/2024 11:10:52 PM DIMITRYSC Kp Us MD - 07/06/2024 Normal sinus rhythm Possible Left atrial enlargement ST & T wave abnormality, consider anterior ischemia Abnormal ECG No previous ECGs available Clinical correlation is indicated Confirmed by Kp Rodriges ([id number]) on 07/06/2024 11:10:52 PM [facility] EKG 12-LEADon 07-06-2024 EKG 12-LEAD 68 68 146 82 [phone] Normal sinus rhythm Possible Left atrial enlargement ST & T wave abnormality, consider anterior ischemia Abnormal ECG No previous ECGs available Clinical correlation is indicated Confirmed by Kp Rodriges ([id number]) on 07/06/2024 11:10:52 PM [email or web address] RetrieveTestByDateTime ?KkcqrphRI=[id number]&D ate=06-07-2024&Time=20 %3a11%3a37%3a00&TestTy pe=ECG&Site=3&OutputTy pe=PDF&Ext=PDF Normal [facility] GFR, ESTIMATEDon 07-06-2024 GFR/1.73 sq M.predicted MDRD (S/P/Bld) [Vol rate/Area] 46 mL/min/{1.73_m2} Abnormal >60 [facility] Comment on above: Pediatric calculator [...] that affects renal tubular secretion. Performed at [facility] [address] [place] [address] Result Comment: Pedi atric calculator link [email or web address] [...] secretion. Performed By: #### P OCGL #### [employer] [address] [place] [address] GLUCOSE POCon 07-06-2024 Glucose [Mass/Vol] 280 mg/dL High 70-108 [facility] Comment on above: Performed at [facility] [address] [place] [address] Performed By: #### P OCGL #### [employer] [address] [place], [place] [id number] Glucose Auto test strip (Bld ) [Mass/Vol]on 07-06-2024 Interpretation and review of laboratory results Abnormal [facility] INR Coag (PPP) [Relative jackie e]on 07-06-2024 [facility] linkedü No Panel Informationon 07-06 Interpretation and review of laboratory results Abnormal [facility] linkedü PROTHOMBIN TIMEon 07-06-2024 INR Coag (Bld) [Relative time] 1.02 {INR} Normal 0.85-1.13 [facility] Comment on above: Result Comment: ---- -----INDICATION INR Reference Range DVT, PE, AF, AMI, tissue heart valve 2.0 to 3.0 Mechanical prosthetic valves 2.5 to 3.5 Performed By: #### P OCGL #### [employer] [address] [place] [address] Protime-INRon 07-06-2024 INR Coag (PPP) [Relative time] 1.02 {INR} 0.85 - 1.13 [facility] [employer] linkedü Comment on above: ---------INDICATION- INR Reference Range DVT, PE, AF, AMI, tissue heart valve 2.0 to 3.0 Mechanical prosthetic valves 2.5 to 3.5 Performed at [facility] [address] [place] [address] aPTT Coag (Bld) [Time]on aPTT Coag (PPP) [Time] 29.5 s Jaylan n [facility] Comment on above: Therapeutic Heparin Reference Range= 60-95 seconds (corresponds to 0.3 to 0.7 u/mL Anti-Xa factor activity) Performed at [facility] [address] [place] [address] Bon [facility] Estimated glomerular filtrat ion rate (GFR) non- Americanon 06-27-2024 GFR/1.73 sq M.predicted among non-blacks MDRD (S/P/Bld) [Vol rate/Area] Estimated glomerular filtration rate (GFR) non- Low >=60 mL/min/1.73 m 2 [facility] - Chemistry and C hemistry - challengeon 06-27-2024 Calcium [Mass/Vol] 9.8 mg/dL 8.5-10.1 [facility] Chloride [Moles/Vol] 101 mmol/L 98-107 [facility] CO2 [Moles/Vol] 28.6 mmol/L 21.0-32.0 [facility] Creatinine [Mass/Vol] 1.41 mg/dL High 0.55-1.[address] [facility] GFR/1.73 sq M.predicted MDRD (S/P/Bld) [Vol rate/Area] 45 mL/min/{1.73_m2} Low >=60 mL/min/1.73 m 2 [facility] Glucose [Mass/Vol] 66 mg/dL Low 74-106 [facility] Potassium [Moles/Vol] 5.1 mmol/L 3.5-5.[address] [facility] Sodium [Moles/Vol] 139 mmol/L 136-145 [facility] Urea nitrogen [Mass/Vol] 29.0 mg/dL High 7.0-18.0 [facility] Urea nitrogen/Creatinine [Mass ratio] 20.6 mg/mg [facility] Bilirubin Ql (U) LARGE Abnormal NEGATIVE [facility] Glucose (U) [Mass/Vol] Negative NEGATIVE [facility] Ketones Ql (U) TRACE mg/dL Abnormal NEGATIVE [facility] pH (U) 5.5 [pH] 5.0-9.0 [facility] Specific gravity (U) [Rel density] 1.025 1.005-1.025 [facility] Urobilinogen Qn (U) 0.2 {Nela'U}/dL 0.2-1.0 [facility] - Specimen inform ationon 06-27-2024 Appearance (U) CLEAR CLEAR [facility] Color (U) YELLOW YELLOW [facility] - Urinalysison Leukocyte esterase Test strip Ql (U) Negative NEGATIVE [facility] Nitrite Ql (U) Negative NEGATIVE [facility] Protein Ql (U) Negative NEG/TRACE [facility] No Panel Informationon 06-27 Urine Microscopic Review NO [facility] Urine Occult Blood Negative NEGATIVE [facility] Serum or plasma anion gap de terminationon 06-27-2024 Anion gap [Moles/Vol] Serum or plasma an ion gap determination [facility] No Panel Informationon 06-01 Miscellaneous Test COMMENT . [facility] Comment on above: Test Ordered: [id number] Aerobic Cult, Extended IncubAerobic Cult, Extended Incub [...] RPenicillin RRifampin STetracycline STrimethoprim/Sulfa SVancomycin SPerformed at: CB - [facility] [address] [id number] Director: Noam Haskins PhD, Phone: [phone] Basophils Auto (Bld) [#/Vol] on 05-31-2024 Basophils (Bld) [#/Vol] Automated basophil count 0.0-0.1 [facility] Basophils/100 WBC Auto (Bld) on 05-31-2024 Basophils/100 WBC (Bld) Automated basophil % 0.2-2.0 [facility] Eosinophils/100 WBC Auto (Bl d)on 05-31-2024 Eosinophils/100 WBC (Bld) Automated eosinophil % 0.9-7.0 [facility] Erythrocyte distribution wid th Auto (RBC) [Ratio]on 05-31-2024 Erythrocyte distribution width (RBC) [Ratio] Erythrocyte distribution width [Ratio] by Automated count 11.0-15.0 [facility] Hematocrit Auto (Bld) [Volum e fraction]on 05-31-2024 Hematocrit (Bld) [Volume fraction] Hematocrit [Volume Fraction] of Blood by Automated count 36.0-48.0 [facility] Hemoglobin [Mass/volume] in Bloodon 05-31-2024 Hemoglobin (Bld) [Mass/Vol] Hemoglobin [Mass/volume] in Blood 12.0-16.0 [facility] - Hematology and Cell countson 05-31-2024 ESR (Bld) [Velocity] 7 mm/h <=30 [facility] Immature granulocytes/100 WBC (Bld) 0.2 % 0.0-0.5 [facility] Leukocytes [#/volume] correc chip for nucleated erythrocytes in Blood by Automated counon 05-31-2024 WBC corrected for nucl RBC Auto (Bld) [#/Vol] Leukocytes [#/volume] corrected for nucleated erythrocytes in Blood by Automated coun 4.0-11.0 [facility] Lymphocytes Auto (Bld) [#/Vo l]on 05-31-2024 Lymphocytes (Bld) [#/Vol] Lymphocytes [#/volume] in Blood by Automated count 1.2-3.8 [facility] Lymphocytes/100 WBC Auto (Bl d)on 05-31-2024 Lymphocytes/100 WBC (Bld) Lymphocytes/100 leukocytes in Blood by Automated count 20.5-60.0 [facility] MCH Auto (RBC) [Entitic mass ]on 05-31-2024 MCH (RBC) [Entitic mass] MCH [Entitic mass] by Automated count 26.7-34.0 [facility] MCHC Auto (RBC) [Mass/Vol]on 05-31-2024 MCHC (RBC) [Mass/Vol] MCHC [Mass/volume] by Automated count 29.9-35.2 [facility] MCV Auto (RBC) [Entitic vol] on 05-31-2024 MCV (RBC) [Entitic vol] MCV [Entitic volume] by Automated count 81.0-99.0 [facility] Monocytes Auto (Bld) [#/Vol] on 05-31-2024 Monocytes (Bld) [#/Vol] Automated blood monocyte count 0.3-0.8 [facility] Monocytes/100 WBC Auto (Bld) on 05-31-2024 Monocytes/100 WBC (Bld) Automated monocyte % 1.7-12.0 [facility] Neutrophils Auto (Bld) [#/Vo l]on 05-31-2024 Neutrophils (Bld) [#/Vol] Neutrophils [#/volume] in Blood by Automated count 1.4-6.5 [facility] Neutrophils/100 WBC Auto (Bl d)on 05-31-2024 Neutrophils/100 WBC (Bld) Automated neutrophil % 43.0-75.0 [facility] No Panel Informationon 05-31 C-Reactive Protein, Quantitative <0.50 mg/dL <=0.50 [facility] Eosinophils # (Auto) 0.1 10 3/uL 0.0-0.[address] [facility] Immature Granulocyte # (Auto) 0.01 10 3/uL 0.00-0.03 [facility] Platelet mean volume Auto (B ld) [Entitic vol]on 05-31-2024 Platelet mean volume (Bld) [Entitic vol] Platelet mean volume [Entitic volume] in Blood by Automated count Low 9.5-13.5 [facility] Platelets Auto (Bld) [#/Vol] on 05-31-2024 Platelets (Bld) [#/Vol] Platelets [#/volume] in Blood by Automated count 150-450 [facility] RBC Auto (Bld) [#/Vol]on RBC (Bld) [#/Vol] Erythrocytes [#/volume] in Blood by Automated count 4.20-5.40 [facility] Basophils Auto (Bld) [#/Vol] on 12-27-2023 Basophils (Bld) [#/Vol] 0.1 10 3/uL 0.0-0.1 [facility] Basophils/100 WBC Auto (Bld) on 12-27-2023 Basophils/100 WBC (Bld) 1.0 % 0.2-2.0 [facility] Cholesterol in LDL Calc [Mas s/Vol]on 12-27-2023 Cholesterol in LDL [Mass/Vol] 63.0 mg/dL [facility] Comment on above: <100 mg/dl [id number] 0-129 mg/dl NEAR OR ABOVE [id number] mg/dl BORDERLINE STMT457-300 mg/dl HIGH>190 mg/dl VERY HIGH Cholesterol in VLDL Calc [Ma ss/Vol]on 12-27-2023 Cholesterol in VLDL [Mass/Vol] 45.8 mg/dL [facility] Eosinophils/100 WBC Auto (Bl d)on 12-27-2023 Eosinophils/100 WBC (Bld) 8.3 % High 0.9-7.0 [facility] Erythrocyte distribution wid th Auto (RBC) [Ratio]on 12-27-2023 Erythrocyte distribution width (RBC) [Ratio] 11.9 % 11.0-15.0 [facility] Estimated glomerular filtrat ion rate (GFR) non- Americanon 12-27-2023 GFR/1.73 sq M.predicted among non-blacks MDRD (S/P/Bld) [Vol rate/Area] 47 mL/min/{1.73_m2} Low >=60 [facility] Globulin Calc (S) [Mass/Vol] on 12-27-2023 Globulin (S) [Mass/Vol] 3.2 g/dL [facility] Glucose mean value [Mass/vol ume] in Blood Estimated from glycated hemoglobinon 12-27-2023 Average glucose Estimated from glycated hemoglobin (Bld) [Mass/Vol] 143 mg/dL [facility] Hematocrit Auto (Bld) [Volum e fraction]on 12-27-2023 Hematocrit (Bld) [Volume fraction] 39.7 % 36.0-48.0 [facility] Hemoglobin [Mass/volume] in Bloodon 12-27-2023 Hemoglobin (Bld) [Mass/Vol] 12.9 g/dL 12.0-16.0 [facility] - Chemistry and C hemistry - challengeon 12-27-2023 Albumin [Mass/Vol] 3.7 g/dL 3.4-5.0 [facility] ALP [Catalytic activity/Vol] 61 U/L 46-116 [facility] ALT [Catalytic activity/Vol] 36 U/L 14-59 [facility] AST [Catalytic activity/Vol] 24 U/L 15-37 [facility] Bilirubin [Mass/Vol] 0.6 mg/dL 0.2-1.0 [facility] Calcium [Mass/Vol] 9.2 mg/dL 8.5-10.1 [facility] Chloride [Moles/Vol] 101 mmol/L 98-107 [facility] Cholesterol [Mass/Vol] 146 mg/dL <=200 [facility] Cholesterol in HDL [Mass/Vol] 38 mg/dL Low 40-60 [facility] Comment on above: > or =60 mg/dl - LOW CARDIOVASCULAR RISK<40 mg/dl - HIGH CARDIOVASCULAR RISK CO2 [Moles/Vol] 26.8 mmol/L 21.0-32.0 [facility] Creatinine [Mass/Vol] 1.17 mg/dL High 0.55-1.[address] [facility] GFR/1.73 sq M.predicted MDRD (S/P/Bld) [Vol rate/Area] 56 mL/min/{1.73_m2} Low >=60 [facility] Glucose [Mass/Vol] 138 mg/dL High 74-106 [facility] Potassium [Moles/Vol] 4.5 mmol/L 3.5-5.[address] [facility] Protein [Mass/Vol] 6.9 g/dL 6.4-8.2 [facility] Sodium [Moles/Vol] 138 mmol/L 136-145 [facility] Triglyceride [Mass/Vol] 229 mg/dL High <=150 [facility] TSH Qn 0.834 m[IU]/L 0.358-3.740 [facility] Urea nitrogen [Mass/Vol] 23.0 mg/dL High 7.0-18.0 [facility] Urea nitrogen/Creatinine [Mass ratio] 19.7 mg/mg [facility] - Hematology and Cell countson 12-27-2023 HbA1c (Bld) [Mass fraction] 6.6 % High 4.5-6.2 [facility] [facility] Comment on above: ADA RECOMMENDED LIMI T 4.0 - 6.0ADA THERAPEUTIC TARGET < 7.0ACTION SUGGESTED> 7.0 Immature granulocytes/100 WBC (Bld) 0.4 % 0.0-0.5 [facility] Leukocytes [#/volume] correc chip for nucleated erythrocytes in Blood by Automated counon 12-27-2023 WBC corrected for nucl RBC Auto (Bld) [#/Vol] 5.2 10 3/uL 4.0-11.0 [facility] Lymphocytes Auto (Bld) [#/Vo l]on 12-27-2023 Lymphocytes (Bld) [#/Vol] 2.2 10 3/uL 1.2-3.8 [facility] Lymphocytes/100 WBC Auto (Bl d)on 12-27-2023 Lymphocytes/100 WBC (Bld) 42.1 % 20.5-60.0 [facility] MCH Auto (RBC) [Entitic mass ]on 12-27-2023 MCH (RBC) [Entitic mass] 28.5 pg 26.7-34.0 [facility] MCHC Auto (RBC) [Mass/Vol]on 12-27-2023 MCHC (RBC) [Mass/Vol] 32.5 g/dL 29.9-35.[address] [facility] MCV Auto (RBC) [Entitic vol] on 12-27-2023 MCV (RBC) [Entitic vol] 87.8 fL 81.0-99.0 [facility] Monocytes Auto (Bld) [#/Vol] on 12-27-2023 Monocytes (Bld) [#/Vol] 0.3 10 3/uL 0.3-0.8 [facility] Monocytes/100 WBC Auto (Bld) on 12-27-2023 Monocytes/100 WBC (Bld) 6.4 % 1.7-12.0 [facility] Neutrophils Auto (Bld) [#/Vo l]on 12-27-2023 Neutrophils (Bld) [#/Vol] 2.2 10 3/uL 1.4-6.5 [facility] Neutrophils/100 WBC Auto (Bl d)on 12-27-2023 Neutrophils/100 WBC (Bld) 41.8 % Low 43.0-75.0 [facility] No Panel Informationon 12-26 Eosinophils # (Auto) 0.4 10 3/uL 0.0-0.[address] [facility] Immature Granulocyte # (Auto) 0.02 10 3/uL 0.00-0.03 [facility] Platelet mean volume Auto (B ld) [Entitic vol]on 12-27-2023 Platelet mean volume (Bld) [Entitic vol] 9.6 fL 9.5-13.5 [facility] Platelets Auto (Bld) [#/Vol] on 12-27-2023 Platelets (Bld) [#/Vol] 190 10 3/uL 150-450 [facility] RBC Auto (Bld) [#/Vol]on RBC (Bld) [#/Vol] 4.52 10 6/uL 4.20-5.40 [facility] Serum or plasma albumin/glob ulin mass ratioon 12-27-2023 Albumin/Globulin [Mass ratio] 1.2 {ratio} [facility] Serum or plasma anion gap de terminationon 12-27-2023 Anion gap [Moles/Vol] 14.7 mmol/[facility] or plasma total choles terol/high density lipoprotein (HDL) cholesterol mass desiree 12-27-2023 Cholesterol.total/Chol esterol in HDL [Mass ratio] 3.8 {ratio} [facility] Comment on above: 3.3 - 4.4 [...] BERNY QUISPE Date: 2022-08-24 07:19 Normal [facility] CBC AUTO DIFFon 03-30-2022 BASO # 0.0 103/ul Normal 0.0-0.1 [facility] Comment on above: Performed By: #### C BC #### [facility] [address] [address] [address] Rc Foster Basophils/100 WBC (Bld) 0.4 % Normal 0.2-2.0 [facility] Comment on above: Performed By: #### C BC #### [facility] [address] [place] [address] Dr. Rc Foster EO # 0.3 103/ul Normal 0.0-0.7 [facility] Comment on above: Performed By: #### C BC #### [facility] [address] [place] [address] Dr. Rc Foster Eosinophils/100 WBC (Bld) 4.9 % Normal 0.9-7.0 [facility] Comment on above: Performed By: #### C BC #### [facility] [address] [place] [address] Dr. Rc Foster Erythrocyte distribution width (RBC) [Ratio] 12.2 % Normal 11.0-15.0 [facility] Comment on above: Performed By: #### C BC #### [facility] [address] [place] [address] Dr. Rc Foster Hematocrit (Bld) [Volume fraction] 39.8 % Normal 36.0-48.0 [facility] Comment on above: Performed By: #### C BC #### [facility] [address] [place] [address] Dr. Rc Foster Hemoglobin (Bld) [Mass/Vol] 13.1 g/dL Normal 12.0-16.0 [facility] Comment on above: Performed By: #### C BC #### [facility] [address] [place] [address] Dr. Rc Foster IG # 0.02 10e3/ul Normal 0.00-0.03 [facility] Comment on above: Performed By: #### C BC #### [facility] [address] [place] [address] Dr. Rc Foster IG % 0.4 % Normal 0.0-0.5 [facility] Comment on above: Performed By: #### C BC #### [facility] [address] [place] [address] Dr. Rc Foster LYMPH # 2.1 103/ul Normal 1.2-3.8 [facility] Comment on above: Performed By: #### C BC #### [facility] [address] [place] [address] Dr. Rc Foster Lymphocytes/100 WBC (Bld) 37.1 % Normal 20.5-60.0 [facility] Comment on above: Performed By: #### C BC #### [facility] [address] [place] [address] Dr. Rc Foster MANUAL DIFF REQ NO Normal [facility] Comment on above: Performed By: #### C BC #### [facility] [address] [place] [address] Dr. Rc Foster MCH (RBC) [Entitic mass] 28.7 pg Normal 26.7-34.0 [facility] Comment on above: Performed By: #### C BC #### [facility] [address] [place] [address] Dr. Rc Foster MCHC (RBC) [Mass/Vol] 32.9 g/dL Normal 29.9-35.2 [facility] Comment on above: Performed By: #### C BC #### [facility] [address] [place] [address] Dr. Rc Foster MCV (RBC) [Entitic vol] 87.1 fL Normal 81.0-99.0 [facility] Comment on above: Performed By: #### C BC #### [facility] [address] [place] [address] Dr. Rc Foster MONO # 0.4 103/ul Normal 0.3-0.8 [facility] Comment on above: Performed By: #### C BC #### [facility] [address] [place] [address] Dr. Rc Foster Monocytes/100 WBC (Bld) 6.7 % Normal 1.7-12.0 [facility] Comment on above: Performed By: #### C BC #### [facility] [address] [place] [address] Dr. Rc Foster NEUT # 2.9 103/ul Normal 1.4-6.5 [facility] Comment on above: Performed By: #### C BC #### [facility] [address] [place] [address] Dr. Rc Foster Neutrophils/100 WBC (Bld) 50.5 % Normal 43.0-75.0 [facility] Comment on above: Performed By: #### C BC #### [facility] [address] [place] [address] Dr. Rc Foster Platelet mean volume (Bld) [Entitic vol] 9.7 fL Normal 9.5-13.5 [facility] Comment on above: Performed By: #### C BC #### [facility] [address] [place] [address] Dr. Rc Foster PLT 189 103/ul Normal 150-450 [facility] Comment on above: Performed By: #### C BC #### [facility] [address] [place] [address] Dr. Rc Foster RBC 4.57 106/ul Normal 4.20-5.40 [facility] Comment on above: Performed By: #### C BC #### [facility] [address] [place] [address] Dr. Rc Foster WBC 5.7 103/ul Normal 4.0-11.0 [facility] Comment on above: Performed By: #### C BC #### [facility] [address] [place] [address] Dr. Rc Foster GLYCOHEMOGLOBIN A1Con 2021 ADA RECOMMENDATION SEE BELOW Normal [facility] Comment on above: Result Comment: ADA RECOMMENDED LIMIT 4.0 - 6.0 ADA THERAPEUTIC TARGET < 7.0 ACTION SUGGESTED > 7.0 Performed By: #### A 1C #### [facility] [address] [place] [address] Dr. Rc Foster Glucose [Mass/Vol] 143 mg/dL Normal [facility] Comment on above: Performed By: #### A 1C #### [facility] [address] [place] [address] Dr. Rc Foster HbA1c (Bld) [Mass fraction] 6.6 % Critically high 4.5-6.2 [facility] Comment on above: Performed By: #### A 1C #### [facility] [address] [place] [address] Dr. Rc Foster LIPID PROFILEon 03-30-2022 CHOL-HDL RATIO NORM SEE BELOW Normal [facility] Comment on above: Result Comment: 3.3 - 4.4 LOW RISK 4.4 - 7.1 AVERAGE RISK 7.1 - 11.0 MODERATE RISK >11.0 HIGH RISK Performed By: #### T SH, CMP, LIPID ####[facility] [address] [place], [place] [address]Sb. Rc Foster Cholesterol [Mass/Vol] 184 mg/dL Normal <=200 [facility] Comment on above: Performed By: #### T SH, CMP, LIPID ####[facility] [address] [place], [place] [address]Mo. Rc Foster Cholesterol in HDL [Mass/Vol] 42 mg/dL Normal 40-60 [facility] Comment on above: Performed By: #### T SH, CMP, LIPID ####[facility] [address] [place], [place] [address]Qg. Rc Foster Cholesterol in LDL [Mass/Vol] 87.0 mg/dL Normal [facility] Comment on above: Performed By: #### T SH, CMP, LIPID ####[facility] [address] [place], [place] [address]Jd. Rc Foster Cholesterol.total/Chol esterol in HDL [Mass ratio] 4.4 {ratio} Normal [facility] Comment on above: Performed By: #### T SH, CMP, LIPID ####[facility] [address] [place], [place] [address]Fh. Rc Foster HDL NORMAL > or = 60 mg/dl - LO W CARDIOVASCULAR RISK <40 mg/dl - HIGH CARDIOVASCULAR RISK Normal [facility] Comment on above: Performed By: #### T SH, CMP, LIPID ####[facility] [address] [id number]. Rc Foster LDL CALC NORMAL SEE BELOW Normal [facility] Comment on above: Result Comment: <100 mg/dl OPTIMAL 100 - 129 mg/dl NEAR OR ABOVE OPTIMAL 130 - 159 mg/dl BORDERLINE HIGH 160 - 189 mg/dl HIGH >190 mg/dl VERY HIGH Performed By: #### T SH, CMP, LIPID ####[facility] [address] [id number]. Rc Foster Triglyceride [Mass/Vol] 275 mg/dL Critically high <=150 [facility] Comment on above: Performed By: #### T SH, CMP, LIPID ####[facility] [address] [id number]. Rc Foster VLDL CALC 55.0 mg/dL Normal [facility] Comment on above: Performed By: #### T SH, CMP, LIPID ####[facility] [address] [id number]. Rc Foster PROF 14(COMP METB)on 022 Albumin [Mass/Vol] 4.0 g/dL Normal 3.4-5.0 [facility] Comment on above: Performed By: #### T SH, CMP, LIPID ####[facility] [address] [address]Dr. Rc Foster Albumin/Globulin [Mass ratio] 1.1 {ratio} Normal [facility] Comment on above: Performed By: #### T SH, CMP, LIPID ####[facility] [address] [address]Dr. Rc Foster ALP [Catalytic activity/Vol] 71 U/L Normal 46-116 [facility] Comment on above: Performed By: #### T SH, CMP, LIPID ####[facility] [address] [id number]. Rc Foster ALT [Catalytic activity/Vol] 29 U/L Normal 14-59 [facility] Comment on above: Performed By: #### T SH, CMP, LIPID ####[facility] [address] [id number]. Rc Foster Anion gap [Moles/Vol] 13.2 mmol/L Normal [facility] Comment on above: Performed By: #### T SH, CMP, LIPID ####[facility] [address] [id number]. Rc Foster AST [Catalytic activity/Vol] 17 U/L Normal 15-37 [facility] Comment on above: Performed By: #### T SH, CMP, LIPID ####[facility] [address] [address]Dr. Rc Foster Bilirubin [Mass/Vol] 0.6 mg/dL Normal 0.2-1.0 [facility] Comment on above: Performed By: #### T SH, CMP, LIPID ####[facility] [address] [address]Dr. Rc Foster Calcium [Mass/Vol] 9.0 mg/dL Normal 8.5-10.1 [facility] Comment on above: Performed By: #### T SH, CMP, LIPID ####[facility] [address] [address]Dr. Rc Foster Chloride [Moles/Vol] 102 mmol/L Normal 98-107 [facility] Comment on above: Performed By: #### T SH, CMP, LIPID ####[facility] [address] [address]Dr. Rc Foster CO2 [Moles/Vol] 27.3 mmol/L Normal 21.0-32.0 [facility] Comment on above: Performed By: #### T SH, CMP, LIPID ####[facility] [address] [address]Dr. Rc Foster Creatinine [Mass/Vol] 1.00 mg/dL Normal 0.55-1.02 [facility] Comment on above: Performed By: #### T SH, CMP, LIPID ####[facility] [address] [address]Dr. Rc Foster EGFR-AF SAUDI ARABIAN >60 Normal >=60 [facility] Comment on above: Performed By: #### T SH, CMP, LIPID ####[facility] [address] [address]Dr. Rc Foster EGFR-NON AF SAUDI ARABIAN 56 mL/min/1.73m2 Critically low >=60 [facility] Comment on above: Performed By: #### T SH, CMP, LIPID ####[facility] [address] [place], [place] [address]Dr. Rc Foster Globulin (S) [Mass/Vol] 3.5 g/dL Normal [facility] Comment on above: Performed By: #### T MARY JANE, CMP, LIPID ####[facility] [address] [address]Dr. Rc Foster Glucose [Mass/Vol] 159 mg/dL Critically high 74-106 [facility] Comment on above: Performed By: #### T MARY JANE, CMP, LIPID ####[facility] [address] [address]Dr. Rc Foster Potassium [Moles/Vol] 4.5 mmol/L Normal 3.5-5.1 [facility] Comment on above: Performed By: #### T MARY JANE, CMP, LIPID ####[facility] [address] [address]Dr. Rc Foster Protein [Mass/Vol] 7.5 g/dL Normal 6.4-8.2 [facility] Comment on above: Performed By: #### T MARY JANE, CMP, LIPID ####[facility] [address] [address]Dr. Rc Foster Sodium [Moles/Vol] 138 mmol/L Normal 136-145 [facility] Comment on above: Performed By: #### T MARY JANE, CMP, LIPID ####[facility] [address] [address]Dr. Rc Foster Urea nitrogen [Mass/Vol] 23.0 mg/dL Critically high 7.0-18.0 [facility] Comment on above: Performed By: #### T MARY JANE, CMP, LIPID ####[facility] [address] [address]Dr. Rc Foster Urea nitrogen/Creatinine [Mass ratio] 23.0 mg/mg Normal [facility] Comment on above: Performed By: #### T MARY JANE, CMP, LIPID ####[facility] [address] [address]Dr. Rc Foster TSHon 03-30-2022 TSH 2.807 uIU/mL Normal 0.358-3.740 [facility] Comment on above: Performed By: #### T SH, CMP, LIPID ####[facility] [address] [place], [place] [address]ZaRodger Foster US THYROIDon 03-30-2022 US THYROID EXAMINATION: [...] by: BERNY QUISPE Date: 2022-03-30 11:03 Normal [facility] MAMM SCREEN 3D LEX CADon 03-19-2022 MG MAMM SCREEN 3D LEX CAD Patient: CARROLL FUENTES Exam Date: 03/19/2022 : 1960 Gender:F Ordering : DR ROBERT VILLASENOR D.O. Admission #: [id number] Family : Order #: [id number] CLICK HERE TO VIEW EXAM RADIOLOGY REPORT [...] Treatments None Family Cancers None LOCATION: [facility] BREAST COMPOSITION: Scattered areas fibroglandular density. [...] Quispe M.D. on 03/23/2022 at 11:59 Normal [facility] CBC AUTO DIFFon 11-27-2021 BASO # 0.0 103/ul Normal 0.0-0.1 [facility] Comment on above: Performed By: #### C BC #### [facility] [address] [place] [address] Dr. Rc Foster Basophils/100 WBC (Bld) 0.7 % Normal 0.2-2.0 [facility] Comment on above: Performed By: #### C BC #### [facility] [address] [place] [address] Dr. Rc Foster EO # 0.6 103/ul Normal 0.0-0.7 [facility] Comment on above: Performed By: #### C BC #### [facility] [address] [address] [address] Rc Foster Eosinophils/100 WBC (Bld) 10.3 % Critically high 0.9-7.0 [facility] Comment on above: Performed By: #### C BC #### [facility] [address] [place] [address] Dr. Rc Foster Erythrocyte distribution width (RBC) [Ratio] 12.4 % Normal 11.0-15.0 [facility] Comment on above: Performed By: #### C BC #### [facility] [address] [place] [address] Dr. Rc Foster Hematocrit (Bld) [Volume fraction] 41.2 % Normal 36.0-48.0 [facility] Comment on above: Performed By: #### C BC #### [facility] [address] [place] [address] Dr. Rc Foster Hemoglobin (Bld) [Mass/Vol] 13.4 g/dL Normal 12.0-16.0 [facility] Comment on above: Performed By: #### C BC #### [facility] [address] [place] [address] Dr. Rc Foster IG # 0.01 10e3/ul Normal 0.00-0.03 [facility] Comment on above: Performed By: #### C BC #### [facility] [address] [place] [address] Dr. Rc Foster IG % 0.2 % Normal 0.0-0.5 [facility] Comment on above: Performed By: #### C BC #### [facility] [address] [place] [address] Dr. Rc Foster LYMPH # 2.3 103/ul Normal 1.2-3.8 [facility] Comment on above: Performed By: #### C BC #### [facility] [address] [place] [address] Dr. Rc Foster Lymphocytes/100 WBC (Bld) 40.6 % Normal 20.5-60.0 [facility] Comment on above: Performed By: #### C BC #### [facility] [address] [place] [address] Dr. Rc Foster MANUAL DIFF REQ NO Normal [facility] Comment on above: Performed By: #### C BC #### [facility] [address] [place] [address] Dr. Rc Foster MCH (RBC) [Entitic mass] 28.8 pg Normal 26.7-34.0 [facility] Comment on above: Performed By: #### C BC #### [facility] [address] [place] [address] Dr. Rc Foster MCHC (RBC) [Mass/Vol] 32.5 g/dL Normal 29.9-35.2 [facility] Comment on above: Performed By: #### C BC #### [facility] [address] [address] [address] Rc Foster MCV (RBC) [Entitic vol] 88.6 fL Normal 81.0-99.0 [facility] Comment on above: Performed By: #### C BC #### [facility] [address] [address] [address] Rc Foster MONO # 0.4 103/ul Normal 0.3-0.8 [facility] Comment on above: Performed By: #### C BC #### [facility] [address] [place] [address] Dr. Rc Foster Monocytes/100 WBC (Bld) 7.6 % Normal 1.7-12.0 [facility] Comment on above: Performed By: #### C BC #### [facility] [address] [place] [address] Dr. Rc Foster NEUT # 2.3 103/ul Normal 1.4-6.5 [facility] Comment on above: Performed By: #### C BC #### [facility] [address] [place] [address] Dr. Rc Foster Neutrophils/100 WBC (Bld) 40.6 % Critically low 43.0-75.0 [facility] Comment on above: Performed By: #### C BC #### [facility] [address] [place] [address] Dr. Rc Foster Platelet mean volume (Bld) [Entitic vol] 9.6 fL Normal 9.5-13.5 [facility] Comment on above: Performed By: #### C BC #### [facility] [address] [place] [address] Dr. Rc Foster PLT 194 103/ul Normal 150-450 [facility] Comment on above: Performed By: #### C BC #### [facility] [address] [place] [address] Dr. Rc Foster RBC 4.65 106/ul Normal 4.20-5.40 [facility] Comment on above: Performed By: #### C BC #### [facility] [address] [place] [address] Dr. Rc Foster WBC 5.5 103/ul Normal 4.0-11.0 [facility] Comment on above: Performed By: #### C BC #### [facility] [address] [place] [address] Dr. Rc Foster GLYCOHEMOGLOBIN A1Con 2021 ADA RECOMMENDATION SEE BELOW Normal [facility] Comment on above: Result Comment: ADA RECOMMENDED LIMIT 4.0 - 6.0 ADA THERAPEUTIC TARGET < 7.0 ACTION SUGGESTED > 7.0 Performed By: #### A 1C #### [facility] [address] [place] [address] Dr. Rc Foster Glucose [Mass/Vol] 131 mg/dL Normal [facility] Comment on above: Performed By: #### A 1C #### [facility] [address] [place] [address] Dr. Rc Foster HbA1c (Bld) [Mass fraction] 6.2 % Normal 4.5-6.2 [facility] Comment on above: Performed By: #### A 1C #### [facility] [address] [place] [address] Dr. Rc Foster PROF CHEM 8 (BAS METB)on Anion gap [Moles/Vol] 15.2 mmol/L Normal [facility] Comment on above: Performed By: #### T SH, BMP #### [facility] [address] [place] [address] Dr. Rc Foster Calcium [Mass/Vol] 8.5 mg/dL Normal 8.5-10.1 [facility] Comment on above: Performed By: #### T SH, BMP #### [facility] [address] [place] [address] Dr. Rc Foster Chloride [Moles/Vol] 100 mmol/L Normal 98-107 [facility] Comment on above: Performed By: #### T SH, BMP #### [facility] [address] [place] [address] Dr. Rc Foster CO2 [Moles/Vol] 26.6 mmol/L Normal 21.0-32.0 [facility] Comment on above: Performed By: #### T SH, BMP #### [facility] [address] [place] [address] Dr. Rc Foster Creatinine [Mass/Vol] 1.15 mg/dL Critically high 0.55-1.02 [facility] Comment on above: Performed By: #### T SH, BMP #### [facility] [address] [place] [address] Dr. Rc Foster EGFR-AF SAUDI ARABIAN 58 mL/min/1.73m2 Critically low >=60 [facility] Comment on above: Performed By: #### T SH, BMP #### [facility] [address] [place] [address] Dr. Rc Foster EGFR-NON AF SAUDI ARABIAN 48 mL/min/1.73m2 Critically low >=60 [facility] Comment on above: Performed By: #### T SH, BMP #### [facility] [address] [place] [address] Dr. Rc Foster Glucose [Mass/Vol] 211 mg/dL Critically high 74-106 [facility] Comment on above: Performed By: #### T SH, BMP #### [facility] [address] [place] [address] Dr. Rc Foster Potassium [Moles/Vol] 4.8 mmol/L Normal 3.5-5.1 [facility] Comment on above: Performed By: #### T SH, BMP #### [facility] [address] [place] [address] Dr. Rc Foster Sodium [Moles/Vol] 137 mmol/L Normal 136-145 [facility] Comment on above: Performed By: #### T SH, BMP #### [facility] [address] [place] [address] Dr. Rc Foster Urea nitrogen [Mass/Vol] 33.0 mg/dL Critically high 7.0-18.0 [facility] Comment on above: Performed By: #### T SH, BMP #### [facility] [address] [place] [address] Dr. Rc Foster Urea nitrogen/Creatinine [Mass ratio] 28.7 mg/mg Normal [facility] Comment on above: Performed By: #### T MARY JANE, BMP #### [facility] [address] [id number] [address] Rc Foster TSHon 11-27-2021 TSH 0.744 uIU/mL Normal 0.358-3.740 [facility] Comment on above: Performed By: #### T MARY JANE, BMP #### [facility] [address] [address] [address] Rc Foster SYMPTOMATIC COVID-19 ANTIGEN on 10-28-2021 EUA Statement SEE BELOW Normal [facility] Comment on above: Result Comment: [...] revoked sooner. Performed By: #### C VDAGS ####[facility] [address] [place] [address]Dr. Rc Foster SARS-CoV-2 (COVID-19) RNA YARED+probe Ql (Unsp spec) Negative Normal NEGATIVE [facility] Comment on above: Performed By: #### C VDAGS ####[facility] [address] [place] [id number]. Rc Foster GLYCOHEMOGLOBIN A1Con 2021 ADA RECOMMENDATION SEE BELOW Normal [facility] Comment on above: Result Comment: ADA RECOMMENDED LIMIT 4.0 - 6.0 ADA THERAPEUTIC TARGET < 7.0 ACTION SUGGESTED > 7.0 Performed By: #### A 1C #### [facility] [address] [address] [address] Rc Foster Glucose [Mass/Vol] 128 mg/dL Normal [facility] Comment on above: Performed By: #### A 1C #### [facility] [address] [address] [address] Rc Foster HbA1c (Bld) [Mass fraction] 6.1 % Normal 4.5-6.2 [facility] Comment on above: Performed By: #### A 1C #### [facility] [address] [address] [address] Rc Foster Discharge CCD Assessmenton 0 09-06-2020 Discharge CCD Assessment [facility] Patient: CARROLL FUENTES [address] [place] [address] MR#: [id number] DISCHARGE CCD ASSESSMENT : 58 Service Date: 09/06/20 1018 Discharge CCD Assessment Assessment Patient discharged home to continue exercises, pain medication, and wound care Electronically Signed eSign Date and Time Melyssa Flores 09/06/20 1019 Tera Hernandez MD Normal [facility] GLUCOSE METERon 09-06-2020 Glucose [Mass/Vol] 126 mg/dL High 70-99 [facility] Comment on above: Order Comment: CONSE RVATION Result Comment: Fast ing GLUCOSE reference range has been updated per (ADA) [place] Diabetes Association's recommendation. 07/18/2018 Performed By: #### L 500.48983 ####Test performed at: [place] [address] Glucose [Mass/Vol] 205 mg/dL High 70-99 [facility] Comment on above: Order Comment: CONSE RVATION Result Comment: Fast ing GLUCOSE reference range has been updated per (ADA) [place] Diabetes Association's recommendation. 07/18/2018 Insulin per sl scale Performed By: #### L 500.02476 #### Test performed at: [place] [address] Internal Med Progress Noteon 09-06-2020 Internal Med Progress Note [facility] Patient: CARROLL FUENTES [address] [id number] MR#: [id number] PROGRESS NOTE - Internal Medicine : 58 [...] - 99 mg/dL) 126 205 177 310 Assessment/Plan-Pull Up Hand al Med Problem List 1. S/P cervical disc [...] eSign Date and Time Ana Flanagan RES, Katarzyn a MD 09/06/20 1134 Normal [facility] Orthopedic Progress Noteon 0 09-06-2020 Orthopedic Progress Note [facility] Patient: CARROLL FUENTES [address] [place] [address] MR#: [id number] PROGRESS NOTE - Orthopedic : 58 Service [...] RN 09/06/20 1022 Tera Hernandez MD Normal [facility] Anesthesia Noteon 09-05-2020 Anesthesia Note [facility] Patient: CARROLL FUENTES [address] [place] [address] MR#: [id number] ANESTHESIA NOTE : Service Date: 09/05/20 0812 [...] Signed eSign Date and Time Krystian Akers APRN-SHILPI 09/05/20 0813 Chu Glez MD Normal [facility] BASIC MET PANELon 09-05-2020 Anion gap [Moles/Vol] 12 mmol/L Normal 6-18 [facility] Comment on above: Performed By: #### L 500.60193, L500.83286 #### Test performed at: [place] [address] Calcium [Mass/Vol] 8.7 mg/dL Normal 8.5-10.1 [facility] Comment on above: Performed By: #### L 500.96571, L500.43962 #### Test performed at: [address] [address] Chloride [Moles/Vol] 101 mmol/L Normal 98-107 [facility] Comment on above: Performed By: #### L 500.57043, L500.47274 #### Test performed at: [address] [address] CO2 [Moles/Vol] 25 mmol/L Normal 21-32 [facility] Comment on above: Performed By: #### L 500.22589, L500.98866 #### Test performed at: [address] [address] Creatinine [Mass/Vol] 1.020 mg/dL Normal 0.550-1.020 [facility] Comment on above: Performed By: #### L 500.14456, L500.84723 #### Test performed at: [address] [address] Glucose [Mass/Vol] 264 mg/dL High 70-99 [facility] Comment on above: Result Comment: Fast ing GLUCOSE reference range has been updated per (ADA) [place] Diabetes Association's recommendation. 07/18/2018 Performed By: #### L 500.01267, L500.00292 #### Test performed at: [address] [address] OSM 289 mosm/kg Normal 270-300 [facility] Comment on above: Performed By: #### L 500.21864, L500.14100 #### Test performed at: [address] [address] Potassium [Moles/Vol] 4.5 mmol/L Normal 3.5-5.1 [facility] Comment on above: Performed By: #### L 500.15104, L500.27984 #### Test performed at: [place] [address] [place] [address] Sodium [Moles/Vol] 134 mmol/L Low 136-145 [facility] Comment on above: Performed By: #### L 500.47762, L500.18109 #### Test performed at: [address] [address] Urea nitrogen [Mass/Vol] 17 mg/dL Normal 7-18 [facility] Comment on above: Performed By: #### L 500.89913, L500.25351 #### Test performed at: [address] [id number] GFR ESTIMATEon 09-05-2020 IF AMER > 60 Normal > 60 [facility] Comment [...] for clinical interpretation. Performed By: #### L 500.70760, L500.57345 #### Test performed at: [address] [id number] IF non-AFR AMER 55 Low > 60 [facility] Comment on above: Performed By: #### L 500.28492, L500.26401 #### Test performed at: [address] [place] [id number] GLUCOSE METERon 09-05-2020 Glucose [Mass/Vol] 177 mg/dL High 70-99 [facility] Comment on above: Order Comment: CONSE RVATION Result Comment: Fast ing GLUCOSE reference range has been updated per (ADA) [place] Diabetes Association's recommendation. 07/18/2018 Performed By: #### L 500.81600 #### Test performed at: [place] [address] [place] [address] Glucose [Mass/Vol] 310 mg/dL High 70-99 [facility] Comment on above: Result Comment: Fast ing GLUCOSE reference range has been updated per (ADA) [place] Diabetes Association's recommendation. 07/18/2018 Insulin per sl scale Performed By: #### L 500.34335 ####Test performed at: [address] [address] Glucose [Mass/Vol] 281 mg/dL High 70-99 [facility] Comment on above: Result Comment: Fast ing GLUCOSE reference range has been updated per (ADA) [place] Diabetes Association's recommendation. 07/18/2018 Insulin per sl scale Performed By: #### L 500.87262 #### Test performed at: [address] [address] Glucose [Mass/Vol] 105 mg/dL High 70-99 [facility] Comment on above: Result Comment: Fast ing GLUCOSE reference range has been updated per (ADA) [place] Diabetes Association's recommendation. 07/18/2018 Performed By: #### L 500.85352 #### Test performed at: [address] [address] HGB AND HCTon 09-05-2020 Hematocrit (Bld) [Volume fraction] 37.5 % Normal 36.0-48.0 [facility] Comment on above: Performed By: #### L 200.96311 #### Test performed at: [address] [address] Hemoglobin (Bld) [Mass/Vol] 12.5 g/dL Normal 12.0-15.0 [facility] Comment on above: Performed By: #### L 200.55768 #### Test performed at: [address] [address] Internal Med Progress Noteon 09-05-2020 Internal Med Progress Note [facility] Patient: CARROLL FUENTES [address] [place] [address] MR#: [id number] PROGRESS NOTE - Internal Medicine : 58 [...] 12.5 Hct (36.0 - 48.0 %) 37.5 Assessment/Plan-Pull Up Hand al Med Problem List 1. S/P cervical disc [...] input. Disc (more content not included)... Normal [facility] OT Therapy Recommendationson 09-05-2020 OT Therapy Recommendations [facility] Patient: CARROLL FUENTES [address] [place], [place] [id number] MR#: [id number] OT THERAPY RECOMMENDATIONS : 58 Service Date: 09/05/201510 Therapy Recommendations Therapy Recommendations Recommendations OT evaluation completed. OT recommends HOME with FAmily assist. No further acute OT needs are indicated at this time. Electronically Signed eSign Date and Time Trupti Rojas OT 09/05/20 151 Normal [facility] Orthopedic Progress Noteon 0 09-05-2020 Orthopedic Progress Note [facility] Patient: CARROLL FUENTES [address] [place], [place] [id number] MR#: [id number] PROGRESS NOTE - Orthopedic : 58 Service [...] Tests 09/05 09/05 09/05 09/04 1058 [id number] Chemistry Sodium (136 - 145 mmol/L) 134 [...] KHAN 09/05/20 1429 Tera Hernandez MD Normal [facility] PT Therapy Recommendationson 09-05-2020 PT Therapy Recommendations [facility] Patient: CARROLL FUENTES [address] [place] [address] MR#: [id number] PT THERAPY RECOMMENDATIONS : 58 Service Date: 09/05/20913 Therapy Recommendations Therapy Recommendations Recommendations PT eval complete. No further acute PT needs. Recommend d/c home /c family assist. Electronically Signed eSign Date and Time Tiffanie Bashir PT 09/05/20 0914 Normal [facility] z OT Inpatient Discharge Not juan 09-05-2020 z OT Inpatient Discharge Note [facility] Patient: CARROLL FUENTES [address] [id number] MR#: [id number] OT INPATIENT DISCHARGE NOTE : 58 Service [...] Time Trupti Rojas OT 09/05/20 1534 Normal [facility] z OT Inpatient Evaluationon 09-05-2020 z OT Inpatient Evaluation [facility] Patient: CARROLL FUENTES [address] [address] MR#: [id number] OT INPATIENT EVALUATION : 58 Inpatient OT HPI Date of Service 09/05/20 Time In: 1401 Time Out: 1412 Total Treatment Time (Mins) 11 Visit Reason LATERAL RECESS STENOSIS W/ RADICULOPATHY Surgery Type/Date s/p L L4-5 LAmi, foraminotomy, decompression on 09.04.20/ Lumbar spine precautions Referral Date 09/04/20 Tx Diagnosis: LOW BACK PAIN Insurance Name [facility] POS [facility] [place] Pt is a left hand [...] 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 Objective Precautions Lumbar Spine [...] Excellent Nader (more content not included)... Normal [facility] z PT Inpatient Discharge Not juan 09-05-2020 z PT Inpatient Discharge Note [facility] Patient: CARROLL FUENTES [address] [place], [place] [id number] MR#: [id number] PT INPATIENT DISCHARGE NOTE : 58 Service [...] Time Tiffanie Bashir PT 09/05/20 1139 Normal [facility] z PT Inpatient Evaluationon 09-05-2020 z PT Inpatient Evaluation [facility] Patient: CARROLL FUENTES [address] [place], [place] [id number] MR#: [id number] PT INPATIENT EVALUATION : 58 Service Date: 09/05/20 0928 Inpatient PT HPI Date of Service 09/05/20 Time In: 0845 Time Out: 0907 Total Treatment Time (Mins) 22 Room Number 624 Visit Reason LATERAL RECESS STENOSIS W/ RADICULOPATHY Surgery Type: L L4-5 lami, foraminotomy, decompression Surgery Date: 09/04/20 Referral Date 09/04/20 Tx Diagnosis: LOW BACK PAIN Insurance Name [facility] POS O Hospital Course 60 y.o female at [facility] for above sx d/t lateral recess [...] posture. Improved stability noted /c single UE support/SHAKE SAWYER. Pt agreeable to use of her cane [...] Time Tiffanie Bashir PT 09/05/20 1502 Normal [facility] GLUCOSE METERon 09-04-2020 Glucose [Mass/Vol] 94 mg/dL Normal 70-99 [facility] Comment on above: Result Comment: Fast ing GLUCOSE reference range has been updated per (ADA) [place] Diabetes [employer]'s recommendation. 07/18/2018 Performed By: #### L 500.36639 ####Test performed at: [place] [address] Internal Medicine Consultati onon 09-04-2020 Internal Medicine Consultation [facility] Patient: CARROLL FUENTES [address] [place] [address] MR#: [id number] CONSULTATION - Internal Medicine : 58 Service Date: 09/04/20 1547 History of Present Illness Referring Physician Tera Hernandez MD Consulted Physician Leonel Haines MD Reason for Consult Postoperative medical [...] 0 (Reported) Entered as Reported by RAISA ACBELLO on 09/04/201056 Last Action: Reviewed on 09/04/201056 by RAISA CBAELLO Atenolol * (Tenormin *) 50 MG TABLET 50 MG PO DAILY MIGRAINES, Ref 0 (Reported) Entered as Reported by JORDON MATHUR on 12/11/18919 Last Action: Reviewed on 09/04/20 105 by [...] Reviewed on 09/04/20 1055 by RAISA CABELLO Scheduled PRN Medications Oxycodone HCl * (Roxicodone 5mg Tablet*) 5 MG TABLET 5 MG PO BIDPRN PRN Pain, Ref 0 ( Reported) Entered as Reported by RAISA CABELLO on 09/04/20 1049 Last Action: Reviewed on 09/04/20 1055 by RAISA CABELLO Rizatriptan Benzoate* (Maxalt*) 10 [...] of Systems (more content not included)... Normal [facility] OPERATIVE REPORTon OPERATIVE REPORT NAME: CARROLL FUENTES MR#: [id number] SURGEON: Tera Hernandez MD DATE OF SURGERY: [...] there were no complications. TERA HERNANDEZ MD [facility] PT NAME: CARROLL FUENTES MR#: [id number] [address] [place] [address] ACCT: [id number] : 58 OPERATIVE REPORT JFS/[id number] E/S: Tera Hernandez MD 09/18/20 1207 Electronically Signed [facility] PT NAME: CARROLL FUENTES MR#: [id number] [address] [place], [place] [id number] ACCT: [id number] : 58 OPERATIVE REPORT Normal [facility] Primary Residenton Primary Resident [facility] Pt Name: CARROLL FUENTES MR#: [id number] [address] [place] [address] ACCT: [id number] [place] [address] : 58 Service Date: 09/04/20 1603 Primary Resident/Call Primary Resident: [id number] After Hours Call: [phone] Red Team Electronically Signed eSign Date and Time Ana Flanagan RES 09/16/20 1521 Normal [facility] LUMBAR SPINE 2 OR 3 VIEWSon 09-03-2020 LUMBAR SPINE 2 OR 3 VIEWS STUDY: LUMBAR SPINE 2 OR 3 VIEWS; 09/04/2020 2:57 pm INDICATION: LEFT L4-L5 LAMINECTOMY,FORAMINOTO MY,DECOMPRESSION. COMPARISON: None. ACCESSION NUMBER(S): [id number] ORDERING CLINICIAN: Tera Hernandez FINDINGS: Intraoperative fluoroscopy of the lumbar spine demonstrates surgical instruments posterior to L5. IMPRESSION: As above Normal [facility] CHEST PA/AP & LATERALon CHEST PA/AP & LATERAL STUDY: CHEST PA/AP LATERAL; 08/25/2020 11:00 am INDICATION: SOB/PAT. COMPARISON: None. ACCESSION NUMBER(S): [id number] ORDERING CLINICIAN: Madelyn Leone FINDINGS: The lungs are clear without pleural effusion. Normal heart size, mediastinum, elzbieta, and pulmonary vasculature. IMPRESSION: No active disease in the chest. Normal [facility] CONSULTATION REPORTon 2020 CONSULTATION REPORT NAME: CARROLL FUENTES MR#: [id number] GOLD BLOWER: Madelyn Leone MD DATE OF CONSULTATION: 08/25/2020 [...] pulse ox is 98% on room air. [facility] PT NAME: CARROLL FUENTES MR#: [id number] [address] [place] [address] ACCT: [id number] : 58 CONSULTATION HEENT: Atraumatic head. 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 IMPRESSION: 1. Preop clearance for L4-L5 disk [...] courtesy of this consultation. MADELYN LEONE MD MS/MODL/[id number] E/S: Madelyn Leone MD 08/26/20 1750 Electronically Signed [facility] PT NAME: CARROLL FUENTES MR#: [id number] [address] [place] [address] ACCT: [id number] : 58 CONSULTATION Normal [facility] LUMB SP COMP W FLEX/EXT 6 VW S>on 08-08-2020 LUMB SP COMP W FLEX/EXT 6 VWS> STUDY: LUMB SP COMP W FLEX/EXT 6 VWS>; 08/08/2020 9:43 am INDICATION: BACK PAIN. COMPARISON: No available comparisons. ACCESSION NUMBER(S): [id number] ORDERING CLINICIAN: Tera Hernandez TECHNIQUE: 6 views [...] L5-S1 level. No evidence of instability.. Normal [facility] XR SHLDR >/=3V AP/RUSH AP/OTH [...] on Jul 03 2018 10:17AM EST [id number] [facility] ANES Holly 06-20-2018 ANES POST HNO ID: [id number] Author: Rohit Velarde Service: Anesthesiology Author Type: [...] 20, 2018 TIME: 2:38 PM PAGER/CONTACT #: [facility] ANES PREOPon 06-20-2018 ANES PREOP HNO ID: [id number] Author: Rohit Velarde Service: Anesthesiology Author Type: [...] June 20, 2018 TIME: 9:35 AM CSN: [id number] [facility] BRIEF OP NOTon 06-20-2018 BRIEF OP NOT HNO ID: [id number] Author: Kusum Francisco Service: Orthopaedic Surgery Author Type: Resident Type: Brief Op Note Filed: 06/20/2018 5:49 PM Note Text: BRIEF OP NOTE LOG ID: [id number] Surgery/Procedure Date: 06/20/2018 Incision/Procedure Start Time: 11:18 AM Incision Close/Procedure End Time: 1:17 PM Surgeon(s)/Procedurali st(s) and Cook 3 Pastry(s): Surgeon(s) and Role: * Jenna Garsia - [...] 20, 2018 TIME: 5:49 PM PAGER/CONTACT #: [facility] CASE MANAGEMon 06-20-2018 CASE MANAGEM HNO ID: [id number] Author: May Herrera (Sw) Service: Care Management Author Type: Operating Systems Programmer Type: Care Mgt Progress Note Filed: 06/20/2018 [...] is pcp summary of care sent via ieCrowd () Nurse to provide discharge instructions. TRANSPORTATION ARRANGEMENTS: Car Spouse ADDITIONAL CONTACT RESOURCES: Needs Prior to Discharge: Ready for Discharge Appointments for Next 45 Days Date Time Provider Location Dept Phone 07/03/2018 10:00 AM CAROLA BAPTISTE AT [phone] 07/03/2018 10:30 AM GABRIEL CANTU) [facility] AT [phone] 07/31/2018 2:15 PM JENNA GARSIA AT [phone] Pt to be discharged home to follow up as above. SIGNATURE: DARIO Saini PATIENT NAME: Carroll Fuentes DATE: June 20, 2018 TIME: 5:31 PM PAGER/CONTACT #: [phone] [facility] CASE MGT INIT [facility] 2018 CASE MGT INIT [facility] HNO ID: [id number] Author: May Herrera (Sw) Service: Care Management Author Type: Operating Systems Programmer Type: Care Mgt Initial Assessment Filed: 06/20/2018 5:31 PM Note Text: CARE MANAGEMENT: ASSESSMENT AND DISCHARGE PLAN SERVICE DATE: 06/20/2018 SERVICE TIME: 5:27p PRIMARY CARE PHYSICIAN: Robert Villasenor MD ADMISSION STATUS: Inpatient Needs Prior to Discharge: Ready for Discharge MEDICAL: Patient/Veterinary Medical Officer Stated Goals: To improve my functional status [...] With: Spouse Financial Resources: 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 O.Therapy recommend home. Spouse visiting at bedside and will transport pt home later today.Further discharge needs not anticipated.SW/TCC to follow to assist with plans for discharge. SIGNATURE: DARIO Saini PATIENT NAME: Carroll Fuentes DATE: June 20, 2018 TIME: 5:27 PM PAGER/CONTACT #: [phone] [facility] CONSULTon 06-20-2018 CONSULT HNO ID: [id number] Author: Dulce Green Service: General Internal Medicine [...] Disp: Rfl: 06/19/2018 at 0630 rizatriptan (MAXALT BRUSH OPERATOR) 10 mg disintegrating tablet DISSOLVE 1 [...] - morphine 2 mg injectionDisp: Rfl: - oxyCODONE-acetaminophe n 5-325 mg 1-2 tablet (PERCOCET)Disp: Rfl: - [...] the care of your patient. Dulce Green APRN.CELEBRITY CHEF ENTREPRENEUR MEDIA PERSONALITY June 20, 2018 4:34 PM Normal [facility] NURSING PROGon 06-20-2018 Protein mass conc HNO ID: [id number] Author: Fela ValenciaRn) FLETCHER Phillips Service: (none) Author Type: Registered Nurse Type: Nursing Progress Note Filed: 06/20/2018 7:39 PM Note Text: Nursing Progress Note Patient Name: Carroll Fuentes Patient Location: -523/-* __ Daily Note: 1545. Care assumed. Pt resting [...] at bedside. 1720. Dr. Meeks and Dulce TRAFFIC COORDINATOR at bedside, plan is to stay for [...] note was completed by: Fela Phillips RN [facility] Protein mass conc HNO ID: [id number] Author: Wendy (Rn) FLETCHER Underwood Service: Nursing Author Type: Registered Nurse Type: Nursing Progress Note Filed: 06/20/2018 10:20 AM Note Text: Nursing Progress Note Patient Name: Carroll Fuentes Patient Location: SURGERY CTR POOL/EU S* __ Daily Note:Right interscalene nerve block with ultrasound guidance with Dr. Velarde and Dr. Marlow at bedside. Patient tolerated procedure well, VSS, will continue to monitor as we wait for OR team. Resting comfortably with no complaints of pain at this time. This note was completed by: Wendy Underwood RN [facility] OPERATIVE NOon 06-20-2018 OPERATIVE NO HNO ID: [id number] Author: Jenna Garsia Service: Orthopaedic Surgery Author Type: Physician Type: Operative Report Filed: 06/20/2018 1:25 PM Note Text: [place] [address] [place] OPERATIVE REPORT NAME: Carroll [facility] #: [id number] DATE: 06/20/2018 (11:18am-1:17pm) AGE: 58 SURGEON 1: Jenna Garsia M.D. ENTRY PROCESSOR: 1. Augie Coates M.D. 2. Kusum Prasad M.D. 3. Mundo Pablo OPERATION: Right total shoulder arthroplasty, biceps tenodesis. ANESTHESIA: General anesthesia with regional interscalene nerve block for postoperative pain control. PREOPERATIVE DIAGNOSIS: Right shoulder primary glenohumeral osteoarthritis. POSTOPERATIVE DIAGNOSIS: Right shoulder primary glenohumeral osteoarthritis, biceps tendinopathy. OPERATIVE INDICATIONS: The patient is a 58 year oldnck-bhxg-xiw right-hand dominant white female who has a [...] rotator interval stitch was then passed in hpdcjd-om-lsuci fashion with a #2 Ticron suture and tied down to close the lateral rotator interval and set the osteotomy superiorly. The two #2 Fiberwire sutures coming out of the bicipital groove were then sequentially passed in a uijvgw-vy-gyffy fashion medial to the horizontal mattress and [...] none COMPLICATIONS: none apparent Jenna Garsia M.D. [facility] PT EDon 06-20-2018 PT ED HNO ID: [id number] Author: Cindy Cervantes) Gaby, RN Service: (none) Author Type: Registered Nurse [...] Signed By: Cindy Griffin RN In Department: [facility] SURGICAL SERVICES Normal [facility] THERAPY NTon 06-20-2018 THERAPY NT HNO ID: [id number] Author: Abi ValenciaOt) Alan Service: Occupational Therapy Author Type: Occupational Therapist Type: Therapy (PT/OT/Speech/Resp) Filed: 06/20/2018 4:59 PM Note Text: Occupational Therapy Evaluation SERVICE DATE: 06/20/2018 SERVICE TIME: 1550 to 1640 ROOM: [address] Recommended Discharge Disposition: Home Anticipated Discharge Needs: Physical Assist at Home Physical Assist at Home for: Shopping;Transportatio n;Cleaning;Laundry;Milvia ls;Medication Management OT Recommendations to Nursing: ADL?s in [...] Session Occupational Therapy Problem List: Education Deficit;Safety Deficits;Pain;Edema;Im paired Self Care;Decreased Activity Tolerance;Decreased Skin Integrity Patient [...] with: Patient;Family TREATMENT INTERVENTIONS: Therapy Diagnosis: Reduced mobility-other;Decreas ed activities of daily living (ADL) Interventions Provided: Evaluation;Therapeutic Exercise (40568);Self Custodial Management (68401) $ Evaluation-Low (59437) Billed Units: 1 unit Therapeutic Exercise (69122) Treatment Minutes: 10 1 unit Skilled Intervention(s): Education in Self Custodial Management (86456) Treatment Minutes: 28 2 units Skilled Intervention(s): [...] Patient Lives With: Spouse Assistance Available: multimedia services coordinator Number Of Stairs To Bed/Bath: 0 [...] evaluation/treatment. SIGNATURE: CHACORTA Estrada/Cesar PATIENT NAME: Carroll Fuentes DATE: June 20, 2018 TIME: 4:54 PM [facility] XR SHOULDER 2V AP/TRUE AP RT on 06-20-2018 XR SHOULDER 2V AP/TRUE AP RT * * *Final Report* * * DATE OF EXAM: Jun 20 2018 1:45PM [facility] 5255 - XR SHOULDER 2V AP/TRUE AP [...] on Jun 20 2018 2:04PM EST [id number] Normal [facility] NURSING PROGon 06-09-2018 Protein mass conc HNO ID: [id number] Author: Ivana (Rn) FLETCHER Heller Service: Nursing [...] RN June 15, 2018 4:39 PM Normal [facility] Type and SCR (30D)on 019 ABO/RH(D) Positive [facility] HOSPon 04-28-2018 HOSP Patient:Adalberto Fuentes MRN: Height:5' 2 (1.575 m) Weight:186 lb (84.369 kg) Outpatient Medications as of 06/20/18: calcium phosphate dibas/vit D3 (VITAMIN D, WITH CALCIUM, ORAL) docusate sodium (COLACE) 100 mg capsule aspirin, enteric coated (ECOTRIN LOW STRENGTH) 81 mg EC tablet oxyCODONE-acetaminophe n (PERCOCET) 5-325 mg tablet rizatriptan (MAXALT BRUSH OPERATOR) 10 mg disintegrating tablet mupirocin (BACTROBAN) [...] 46.0 36.0 Progress Notes (RADIO CT SCAN [facility]): RT Lillian, John 06/07/2018 10:04 AM Sign at close encounter [...] RT Lillian June 07, 2018 9:54 AM [facility] Vital Signs Date Time Vital Sign Value Performing Clinician Facility 11-28-2024 13:37-0400 Body height 154.94 cm Robert Ball DO Work Phone: [facility] 11-28-2024 13:37-0400 Body mass index (BMI) [Ratio] 31.8 kg/m2 Robert Ball DO Work Phone: [facility] 11-28-2024 13:37-0400 Body weight 76.43 kg Robert Ball DO Work Phone: [facility] 11-28-2024 13:37-0400 Diastolic blood pressure 72 mm[Hg] Robert Ball DO Work Phone: [facility] 11-28-2024 13:37-0400 Heart rate 77 /min Robert Ball DO Work Phone: [facility] 11-28-2024 13:37-0400 Respiratory rate 12 /min Robert Ball DO Work Phone: [facility] 11-28-2024 13:37-0400 Systolic blood pressure 107 mm[Hg] Robert Ball DO Work Phone: [facility] 10-11-2024 10:42-0400 Body height 154.94 cm Robert Ball DO Work Phone: [facility] 10-11-2024 10:42-0400 Body mass index (BMI) [Ratio] 31.8 kg/m2 Robert Ball DO Work Phone: [facility] 10-11-2024 10:42-0400 Body weight 76.31 kg Robert Ball DO Work Phone: [facility] 10-11-2024 10:42-0400 Diastolic blood pressure 69 mm[Hg] Robert Ball DO Work Phone: [facility] 10-11-2024 10:42-0400 Heart rate 66 /min Robert Ball DO Work Phone: [facility] 10-11-2024 10:42-0400 Respiratory rate 12 /min Robert Ball DO Work Phone: [facility] 10-11-2024 10:42-0400 Systolic blood pressure 103 mm[Hg] Robert Ball DO Work Phone: [facility] 09-12-2024 15:22-0400 Body height 154.94 cm Robert Ball DO Work Phone: [facility] 09-12-2024 15:22-0400 Body mass index (BMI) [Ratio] 32.3 kg/m2 Robert Ball DO Work Phone: [facility] 09-12-2024 15:22-0400 Body weight 77.79 kg Robert Ball DO Work Phone: [facility] 09-12-2024 15:22-0400 Diastolic blood pressure 79 mm[Hg] Robert Ball DO Work Phone: [facility] 09-12-2024 15:22-0400 Heart rate 69 /min Robert Ball DO Work Phone: [facility] 09-12-2024 15:22-0400 Respiratory rate 12 /min Robert Ball DO Work Phone: [facility] 09-12-2024 15:22-0400 Systolic blood pressure 133 mm[Hg] Robert Ball DO Work Phone: [facility] 07-25-2024 09:00-0400 Diastolic blood pressure 79 mm[Hg] [facility] 07-25-2024 09:00-0400 Heart rate 66 /min [facility] 07-25-2024 09:00-0400 Respiratory rate 12 /min [facility] 07-25-2024 09:00-0400 Systolic blood pressure 161 mm[Hg] [facility] 07-18-2024 10:47-0400 Body height 154.94 cm [facility] 07-18-2024 10:47-0400 Body mass index (BMI) [Ratio] 32.8 kg/m2 [facility] 07-18-2024 10:47-0400 Body weight 78.95 kg [facility] 07-18-2024 10:47-0400 Diastolic blood pressure 74 mm[Hg] [facility] 07-18-2024 10:47-0400 Heart rate 68 /min [facility] 07-18-2024 10:47-0400 Respiratory rate 12 /min [facility] 07-18-2024 10:47-0400 Systolic blood pressure 134 mm[Hg] [facility] 07-13-2024 10:11-0400 Body height 154.94 cm [facility] 07-13-2024 10:11-0400 Body mass index (BMI) [Ratio] 32.9 kg/m2 [facility] 07-13-2024 10:11-0400 Body weight 79.01 kg [facility] 07-13-2024 10:11-0400 Diastolic blood pressure 77 mm[Hg] [facility] 07-13-2024 10:11-0400 Heart rate 65 /min [facility] 07-13-2024 10:11-0400 Respiratory rate 12 /min [facility] 07-13-2024 10:11-0400 Systolic blood pressure 117 mm[Hg] [facility] 07-11-2024 08:30-0400 Body temperature 98.6 [degF] Jose Sharif MD Work Phone: [facility] 07-11-2024 08:30-0400 Diastolic blood pressure 62 mm[Hg] Jose Sharif MD Work Phone: [facility] [employer] [facility] 07-11-2024 08:30-0400 Heart rate 88 /min Jose Sharif MD Work Phone: [facility] [employer] [facility] 07-11-2024 08:30-0400 Respiratory rate 16 /min Jose Sharif MD Work Phone: [facility] [employer] 07-11-2024 08:30-0400 SaO2% (BldA) [Mass fraction] 98 % Jose Sharif MD Work Phone: [facility] [employer] 07-11-2024 08:30-0400 Systolic blood pressure 117 mm[Hg] Jose Sharif MD Work Phone: [facility] [employer] 07-06-2024 20:16-0400 Body height 154.9 cm Jose Sharif MD Work Phone: [facility] [employer] 07-06-2024 20:16-0400 Body mass index (BMI) [Ratio] 33.07 kg/m2 Jose Sharif MD Work Phone: [facility] [employer] 07-06-2024 20:16-0400 Body weight 79.38 kg Jose [facility] MD [email or web address] 07-04-2024 15:04-0400 Body height 154.94 cm [facility] 07-04-2024 15:04-0400 Body mass index (BMI) [Ratio] 32.9 kg/m2 [facility] 07-04-2024 15:04-0400 Body weight 79.06 kg [facility] 07-04-2024 15:04-0400 Diastolic blood pressure 79 mm[Hg] [facility] 07-04-2024 15:04-0400 Heart rate 69 /min [facility] 07-04-2024 15:04-0400 Respiratory rate 12 /min [facility] 07-04-2024 15:04-0400 Systolic blood pressure 177 mm[Hg] [facility] 06-25-2024 10:11-0500 Body temperature 97.3 [degF] [facility] 06-25-2024 10:11-0500 Diastolic blood pressure 76 mm[Hg] [facility] 06-25-2024 10:11-0500 Heart rate 54 /min [facility] 06-25-2024 10:11-0500 Respiratory rate 16 /min [facility] 06-25-2024 10:11-0500 SaO2% (BldA) [Mass fraction] 98 % [facility] 06-25-2024 10:11-0500 Systolic blood pressure 119 mm[Hg] [facility] 06-25-2024 10:07-0500 Body height 154.94 cm [facility] 06-25-2024 10:07-0500 Body mass index (BMI) [Ratio] 32.9 kg/m2 [facility] 06-25-2024 10:07-0500 Body weight 79.15 kg [facility] 02-24-2024 14:13-0400 Body height 154.94 cm [facility] 02-24-2024 14:13-0400 Body mass index (BMI) [Ratio] 33.1 kg/m2 [facility] 02-24-2024 14:13-0400 Body temperature 96 [degF] [facility] 02-24-2024 14:13-0400 Body weight 79.6 kg [facility] 02-24-2024 14:13-0400 Diastolic blood pressure 84 mm[Hg] [facility] 02-24-2024 14:13-0400 Heart rate 66 /min [facility] 02-24-2024 14:13-0400 Systolic blood pressure 159 mm[Hg] [facility] 12-20-2023 15:35-0400 Body height 154.94 cm [facility] 12-20-2023 15:35-0400 Body mass index (BMI) [Ratio] 33.8 kg/m2 [facility] 12-20-2023 15:35-0400 Body weight 81.19 kg [facility] 12-20-2023 15:35-0400 Diastolic blood pressure 80 mm[Hg] [facility] 12-20-2023 15:35-0400 Heart rate 78 /min [facility] 12-20-2023 15:35-0400 Respiratory rate 12 /min [facility] 12-20-2023 15:35-0400 Systolic blood pressure 134 mm[Hg] [facility] 04-29-2023 09:00-0500 Body height 154.94 cm Robert Ball Other [facility] Other 04-29-2023 09:00-0500 Body mass index (BMI) [Ratio] 33.14 kg/m2 Robert Ball Other [facility] Other 04-29-2023 09:00-0500 Body weight 79.56 kg Robert Ball Other [facility] Other 04-29-2023 09:00-0500 Diastolic blood pressure 89 mm[Hg] Robert Ball Other [facility] Other 04-29-2023 09:00-0500 Respiratory rate 12 /min Robert Ball Other [facility] Other 04-29-2023 09:00-0500 Systolic blood pressure 155 mm[Hg] Robert Ball Other [facility] Other 12-20-2022 13:45-0400 Body height 154.94 cm Robert Ball Other [facility] Other 12-20-2022 13:45-0400 Body mass index (BMI) [Ratio] 34.12 kg/m2 Robert Ball Other [facility] Other 12-20-2022 13:45-0400 Body weight 81.92 kg Robert Ball Other [facility] Other 12-20-2022 13:45-0400 Diastolic blood pressure 96 mm[Hg] Robert Ball Other [facility] Other 12-20-2022 13:45-0400 Respiratory rate 12 /min Robert Ball Other [facility] Other 12-20-2022 13:45-0400 Systolic blood pressure 179 mm[Hg] Robert Villasenor Other [facility] Other 08-04-2022 09:45-0400 Body height 154.94 cm Robert Villasenor Other [facility] Other 08-04-2022 09:45-0400 Body mass index (BMI) [Ratio] 33.33 kg/m2 Robert Villasenor Other [facility] Other 08-04-2022 09:45-0400 Body weight 80.02 kg Robert Villasenor Other [facility] Other 08-04-2022 09:45-0400 Diastolic blood pressure 77 mm[Hg] Robert Villasenor Other [facility] Other 08-04-2022 09:45-0400 Respiratory rate 12 /min Robert Villasenor Other [facility] Other 08-04-2022 09:45-0400 Systolic blood pressure 128 mm[Hg] Robert Villasenor Other [facility] Other Encounters Encounter Date Encounter Type Care Provider Facility Start: 11-28-2024 End: 11-28-2024 ambulatory Robert Villasenor DO Work Phone: [facility] Work Phone: Start: 11-28-2024 End: 11-28-2024 Patient encounter procedure Robert [facility]asenor DO [facility] Work Phone: Start: 11-23-2024 End: 11-25-2024 ambulatory ROBERT HAMILTON [facility] Start: 11-23-2024 End: 11-25-2024 Subsequent hospital visit by physician Tomás Helton DO Work Phone: [facility] MRI Comment on above: Osteoarthritis of ri ght knee, unspecified osteoarthritis type Start: 10-13-2024 Non-patient / Non-visit Robert barnard [facility] [facility] [employer] [facility] [employer] Work Phone: Start: 10-11-2024 End: 10-11-2024 Patient encounter procedure Robert Villasenor [facility] Work Phone: Start: 10-11-2024 End: 10-11-2024 Patient encounter status Robert Villasenor DO [facility] Start: 09-21-2024 Non-patient / Non-visit Robert barnard [facility] [facility] [employer] Work Phone: Start: 09-14-2024 Non-patient / Non-visit Robert barnard DO -[facility] Work Phone: Start: 09-12-2024 End: 09-12-2024 Patient encounter procedure Robert Villasenor [facility] Work Phone: Start: 07-25-2024 End: 07-25-2024 ambulatory [facility] Work Phone: Start: 07-25-2024 End: 07-25-2024 Patient encounter procedure [facility] Physician [facility] Work Phone: Start: 07-18-2024 End: 07-18-2024 ambulatory [facility] Work Phone: Start: 07-18-2024 End: 07-18-2024 Patient encounter procedure [facility] Physician [facility] Work Phone: Start: 07-18-2024 Non-patient / Non-visit [facility] Work Phone: Start: 07-13-2024 End: 07-13-2024 ambulatory [facility] Work Phone: Start: 07-13-2024 End: 07-13-2024 Patient encounter procedure [facility] Physician [facility] Work Phone: Start: 07-12-2024 Non-patient / Non-visit [facility] Physician [facility] Work Phone: Start: 07-11-2024 Non-patient / Non-visit [facility] Physician [facility] Work Phone: Start: 07-06-2024 End: 07-11-2024 Evaluation and management of inpatient Jose Sharif MD Work Phone: [facility] Start: 07-04-2024 End: 07-04-2024 ambulatory [facility] Work Phone: Start: 07-04-2024 End: 07-04-2024 Encounter for other preprocedural examination [facility] Start: 07-04-2024 End: 07-04-2024 Patient encounter procedure [facility] Work Phone: Start: 06-27-2024 Non-patient / Non-visit [facility] Physician [facility] Work Phone: Start: 06-25-2024 End: 06-25-2024 ambulatory [facility] Work Phone: Start: 06-25-2024 End: 06-25-2024 Patient encounter procedure [facility] Work Phone: Start: 06-21-2024 ambulatory Raisa PRICE Facility:[facility] Start: 06-01-2024 Non-patient / Non-visit [facility] Physician [facility] Work Phone: Start: 05-31-2024 Non-patient / Non-visit [facility] Physician [facility] Work Phone: Start: 04-09-2024 End: 04-09-2024 ambulatory Miriam Barron MD Facility: [facility] Start: 02-24-2024 End: 02-24-2024 ambulatory [facility] Work Phone: Start: 02-24-2024 End: 02-24-2024 Patient encounter procedure [facility] Physician [facility] Work Phone: Start: 02-22-2024 Non-patient / Non-visit [facility] Physician [facility] Work Phone: Start: 12-27-2023 Non-patient / Non-visit [facility] Physician [facility] Work Phone: Start: 12-20-2023 Patient encounter status [facility] Start: 12-20-2023 End: 12-20-2023 ambulatory [facility] Work Phone: Start: 12-20-2023 End: 12-20-2023 Patient encounter procedure [facility] Work Phone: Start: 09-26-2023 End: 09-26-2023 ambulatory Miriam Barron MD Facility: [facility] Start: 08-15-2023 End: 08-15-2023 ambulatory Andvalentine Barron MD Facility: [facility] Start: 08-08-2023 End: 08-08-2023 ambulatory Miriam Barron MD Facility: [facility] Start: 06-27-2023 End: 06-27-2023 ambulatory Miriam Barron MD Facility: [facility] Start: 06-06-2023 End: 06-06-2023 ambulatory Miriam Barron MD Facility: [facility] Start: 06-01-2023 End: 06-01-2023 ambulatory Robert Villasenor Other [facility] Other Start: 06-01-2023 Telephone encounter Robert Villasenor [facility] Start: 05-23-2023 End: 05-23-2023 ambulatory Miriam Barron MD Facility: [facility] Start: 05-13-2023 End: 05-13-2023 ambulatory Robert Villasenor Other [facility] Other Start: 05-13-2023 Telephone encounter Robert Ball [facility] Start: 05-09-2023 End: 05-09-2023 ambulatory Robert Ball Other [facility] Other Start: 05-09-2023 Telephone encounter Robert Ball [facility] Start: 05-04-2023 End: 05-04-2023 ambulatory Robert Ball Other [facility] Other Start: 05-04-2023 Telephone encounter Robert Ball [facility] Start: 05-02-2023 End: 05-02-2023 ambulatory Robert Ball Other [facility] Other Start: 05-02-2023 Telephone encounter Robert Ball [facility] Start: 04-29-2023 End: 04-29-2023 ambulatory Robert Ball Other [facility] Other Start: 04-29-2023 Office outpatient vi sit 15 minutes Robert Ball [facility] Start: 04-04-2023 End: 04-04-2023 ambulatory Robert Ball Other [facility] Other Start: 04-04-2023 Telephone encounter Robert Ball [facility] Start: 01-24-2023 End: 01-24-2023 ambulatory Robert Ball Other [facility] Other Start: 01-24-2023 Telephone encounter Robert Ball [facility] Start: 12-23-2022 End: 12-23-2022 ambulatory Robert Ball Other [facility] Other Start: 12-23-2022 Telephone encounter Robert Ball [facility] Start: 12-20-2022 End: 12-20-2022 ambulatory Robert Ball Other [facility] Other Start: 12-20-2022 Office outpatient vi sit 15 minutes Robert Hamilton [facility] Start: 12-17-2022 End: 12-17-2022 ambulatory Robert Villasenor Other [facility] Other Start: 12-17-2022 Telephone encounter Robert Hamilton [facility] Start: 11-08-2022 End: 11-08-2022 ambulatory Robert Villasenor Other [facility] Other Start: 11-08-2022 Telephone encounter Robert Villasenor [facility] Start: 10-22-2022 End: 10-22-2022 ambulatory Robert Villasenor Other [facility] Other Start: 10-22-2022 Telephone encounter Robert Villasenor [facility] Start: 10-13-2022 End: 10-13-2022 ambulatory Robert Villasenor Other [facility] Other Start: 10-13-2022 Telephone encounter Robert Villasenor [facility] Start: 09-27-2022 End: 09-27-2022 ambulatory Robert Villasenor Other [facility] Other Start: 09-27-2022 Telephone encounter Robert Hamilton [facility] Start: 08-23-2022 End: 08-24-[address] RISHI PARKER Facility:[facility] Start: 08-04-2022 End: 08-04-2022 ambulatory Robert Villasenor Other [facility] Other Start: 08-04-2022 Office outpatient vi sit 25 minutes Robert Villasenor [facility] Start: 04-03-2022 Encounter for genera l adult medical examination without abnormal findings DR ROBERT VILLASENOR [facility] Start: 03-30-2022 End: 03-31-[address] [...] Start: 07-03-2018 End: 07-03-2018 Patient encounter procedure [facility] Start: 06-20-2018 End: 06-20-2018 Evaluation and management of inpatient [facility] Procedures Date Procedure Procedure Detail Performing Clinician [...] 60 yrs+ (1 - 1-dose 75+ series) [facility] Start: 07-11-2025 GFR test (Diabetes, CKD 3-4, OR last GFR 15-59) GFR test (Diabetes, CKD 3-4, OR last GFR 15-59) [facility] Start: 11-23-2024 Influenza vaccination Flu vaccine (# 1) [facility] Start: 04-25-2024 Annual Wellness Visi t (Medicare Advantage) Annual Wellness Visit (Medicare Advantage) [facility] Start: 12-25-2023 COVID-19 Vaccine ( season) COVID-19 Vaccine ( season) [facility] Start: 2014 Screening for osteoporosis DEXA (modify frequency per FRAX score) [facility] Start: 2009 Pneumococcal 50+ yea rs Vaccine (1 of 1 - PCV) Pneumococcal 50+ years Vaccine (1 of 1 - PCV) [facility] Start: 2009 Shingles vaccine (1 of 2) Shingles vaccine (1 of 2) [facility] Start: 2004 Screening for malign ant neoplasm of colon [facility] Start: 1999 Screening for malign ant neoplasm of breast Breast cancer screen [facility] Start: 1994 Diabetes screen Diabetes screen [facility] Start: 1989 Screening for malign ant neoplasm of cervix [facility] Start: 1980 Screening for malign ant neoplasm of cervix Pap smear [facility] Start: 1978 DTaP/Tdap/Td vaccine (1 - Tdap) DTaP/Tdap/Td vaccine (1 - Tdap) [facility] Start: 1978 Pneumococcal 50+ yea rs Vaccine (1 of 2 - PCV) Pneumococcal 50+ years Vaccine (1 of 2 - PCV) [facility] Start: 1977 Glaucoma screening Diabetic retinal exam [facility] Start: 1977 Hepatitis C screening Hepatitis C sc reen [facility] Start: 1977 Urine screening for protein Diabetic Alb to Cr ratio (uACR) test [facility] Start: 1974 HIV screening HIV screen [facility] Start: 1971 Depression Screen Depression Screen [facility] Start: 1969 Diabetic foot examination Diabetic foot exam [facility] [employer] Start: 1969 Hemoglobin A1c measurement A1C test (Diabetic or Prediabetic) [facility] [employer] Start: 1969 Lipid panel Lipids [place] [facility] End: 07-15-2024 Basic metabolic 2000 panel - Serum or Plasma Basic Metabolic Panel Lab Routine Daily for 1 Weeks starting 07/09/2024 until 07/15/2024, 3 completed Primary Data Comment on above: Daily for [address] arting 07/09/2024 until 07/15/2024, 3 completed Comprehensive metabo lic 2000 panel - Serum or Plasma [facility] Comprehensive metabo lic 1999 panel - Serum or Plasma [facility] Comprehensive metabo lic 1999 panel - Serum or Plasma [facility] Glucose [Mass/volume ] in Serum or Plasma POCT Glucose Point of Care Testing STAT As Needed until discontinued starting 07/06/2024 Primary Data Comment on above: As Needed until disc ontinued starting 07/06/2024 Glucose [Mass/volume ] in Serum or Plasma POCT glucose Point of Care Testing Routine 4X Daily (AC & HS) until discontinued starting 07/07/2024, 18 completed Primary Data Comment on above: 4X Daily (AC & HS) u ntil discontinued starting 07/07/2024, 18 completed Glucose [Mass/volume ] in Serum or Plasma POCT Glucose Point of Care Testing STAT As Needed until discontinued starting 07/10/2024 Primary Data Comment on above: As Needed until disc ontinued starting 07/10/2024 End: 07-15-2024 Hemoglobin and Hematocrit Hemoglobin and Hematocrit Lab Routine Daily for 1 Weeks starting 07/09/2024 until 07/15/2024, 3 completed Primary Data Comment on above: Daily for [address] arting 07/09/2024 until 07/15/2024, 3 completed MG Breast - bilatera l Diagnostic [facility] End: 11-23-2024 MR Knee - right WO contrast Primary Data Comment on above: 1 Occurrences starti ng 11/23/2024 until 11/23/2024 MR Knee - right WO contrast [facility] Oxygen therapy [[facility] Set] Initiate Oxygen Therapy Protocol Respiratory Care Routine As Needed until discontinued starting 07/08/2024 Primary Data Comment on above: As Needed until disc ontinued starting 07/08/2024 Spirometry panel Incentive jesse metry Respiratory Care Routine Every 2hr while awake until discontinued starting 07/06/2024 Primary Data Work Phone: Comment on above: Every 2hr while awak e until discontinued starting 07/06/2024 Spirometry panel Incentive jesse metry Respiratory Care Routine Every 2hr while awake until discontinued starting 07/08/2024 Primary Data Comment on above: Every 2hr while awak e until discontinued starting 07/08/2024 [facility] Payers Date Payer Category Payer Unknown [id number] 2023 Unknown 2022 [employer] [id number] 2019 Unknown [id number] 2015 Unknown [id number] 1959 Self-pay [id number] 1959 Unknown [id number] 93 1959 Unknown [id number] 2.16.840.1.612209.3.579.2.5 93 1959 Unknown [id number] 2.16.840.1.240993.3.579.2.5 93 1959 Unknown [id number] 2.16.840.1.037723.3.579.2.5 93 1959 Unknown [id number] 2.16.840.1.321074.3.579.2.5 93 1959 Unknown [id number] 2.16.840.1.874228.3.579.2.5 93 1959 Unknown [id number] 2.16.840.1.952617.3.579.2.1 96 1959 Unknown [id number] 2.16.840.1.313179.3.579.2.1 96 1959 Unknown [id number] 2.16.840.1.532894.3.579.2.1 96 1959 Unknown [id number] 2.16.840.1.994633.3.579.2.1 96 1959 Unknown [id number] 2.16.840.1.485086.3.579.2.1 96 1959 Unknown [id number] 2.16.840.1.080726.3.579.2.1 96 1959 Unknown [id number] 2.16.840.1.518118.3.579.2.1 96 1959 Unknown [id number] 2.16.840.1.745238.3.579.2.7 27 1959 Unknown [id number] 2.16.840.1.551399.3.579.2.9 3 1959 Unknown [id number] 2.16.840.1.171576.3.579.2.1 74 Medicare Medicare [id number] Unknown [id number] 2.16.840.1.649044.3.579.2.5 93 Unknown MMO [id number] Unknown [facility] MCR PFFS [id number] Social History Date Type Detail Facility Start: 07-06-2024 Sex Assigned At [facility] Other Start: 1960 Sex Assigned At Female [facility] Tobacco smoking stat us NHIS Unknown if ever smoked [facility] Work Phone: Start: 06-04-2012 End: 06-25-2024 Sex Female (finding) [facility] Start: 07-06-2024 End: 10-11-2024 Tobacco smoking status NHIS Never smoked tobacco Primary Data Start: 07-06-2024 Tobacco use and exposure Smokeless tobacco non-user Primary Data Start: 07-09-2024 Alcoholic beverage intake Lifetime non-drinker (finding) Primary Data Start: 07-06-2024 History of Social function Idibon Has the electric, Exmovere s, oil, or water company threatened to shut off services in your home in past 12Mo No Primary Data (I/We) worried eladio er (my/our) food would run out before (I/we) got money to buy more. Never true Primary Data In the past 12 month s, has lack of transportation kept you from medical appointments or from getting medications? No Primary Data Start: 1960 Sex assigned at Not on file Primary Data Medical Equipment Procedure Code Equipment Code Equipment Original Text Equipment Identifier Dates Screw Spnl L45mm Dia6.5mm Post Thoracolumbosacral Co Chrom - [id number] Start: 07-08-2024 Screw Spnl L40mm Dia6.5mm Post Thoracolumbosacral Co Chrom - [id number] Start: 07-08-2024 Set Scr Spnl L6m m Dia5.5mm Ti Brk Off Svetlana W/ Detach Cdh - [id number] Start: 07-08-2024 Evan Spnl L35mm D ia5.5mm Ant Post Thoracolumbosacral Ti - [id number] Start: 07-08-2024 Clinical Notes 08-04-2022 to 09-12-2024 Note Date & Type Note Facility 09-12-2024 Evaluation note Diagnosis Onset Date Resolution Acute blood loss anemia acute M ay 2024 3:13pm Hypertension acute September 12 3:13pm Knee pain, right acute August 3:13pm Mass of left axilla acute August 242024 3:13pm Prerenal azotemia acute August 3:13pm Type 2 diabetes mellitus with hyperglycemia acute September 12 3:13pm Hypercholesterolemia acute October 11, 2024 10:26am Hypertension acute October 11, 025 10:26am Hypothyroid acute October 11 10:26am Major depression acute September 10:26am STEPHANIE (obstructive sleep apnea) acute October 11, 2024 10:26am Type 2 diabetes mellitus with hyperglycemia acute October 11 10:26am Welcome to Medicare preventive visit noneactive October 11, 2024 10:26am [facility] Work Phone: 1(537) 770-881203-19-2025 History of Present illness Narrative* Bhavani Anderson RN - 07/11/2024 11:59 AM EDT Pt discharged to private vehicle with all of her personal belongings via wheelchair by RN. All questions and concerns answered at the time of discharge. * Jose Sharif MD - 07/11/2024 10:15 AM EDT INTERNAL MEDICINE Progress Note 07/11/2024 10:15 AM [...] orthop as OP. Jose Sharif MD, MD * Berny Lewis PA-C - 07/11/2024 6:57 AM EDT Department of Orthopedic Surgery Spine [...] Tuesday for drain removal. Berny Lewis PA-C * Jose Sharif MD - 07/10/2024 7:10 PM EDT INTERNAL MEDICINE Progress Note 07/10/2024 7:10 PM [...] PT/OT SCD amlabs Jose Sharif MD, MD * Garima Rosales, PT - 07/10/2024 10:18 AM EDT [facility] INPATIENT PHYSICAL THERAPY EVALUATION [facility] 7K - 7K-21/021-A Discharge [...] reported a fall associated with the right legweakness. She denies bowel or urinary incontinence. 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 Brace wasalso upside down when PT arrived. Assist for [...] Not Tested Exercise: None Functional Outcome Measures: [facility] (6 CLICK) BASIC MOBILITY [facility] Inpatient Mobility Raw Score : 17 [facility] Inpatient T-Scale Score : 42.13 Modified [place]: Premorbid Functional Status: Not Applicable Current Functional [...] increase safety and independence with functional mobility forimproved independence and quality of life. Assessment: Body [...] and progress towards PLOF to return to homeenvironment safely. Therapy Prognosis: Good Requires PT Follow-Up: [...] with good technique/recall to progress with mobility. Creative Services Director Goals Time Frame for Creative Services Director Goals : NA due to short ELOS Following session, patient left in safe position with all fall risk precautions in place. Pt in bedfollowing session, all needs and call light in reach, alarm on. * America Waters OTA - 07/10/2024 8:30 AM EDT [facility] Occupational Therapy Daily Note Discharge Recommendations: Home with Home Health OT Equipment Recommendations: No Monitor need for LHAE. Time In: 0800 Time Out: 08 Timed Code Treatment Minutes: 28 Minutes Minutes: 28 Date: 07/10/2024 Patient Name: Carroll Fuentes, Gender: female Room: [facility]21/021-A : 1960 (64 y.o.) Referring Practitioner: Dank Sams PA Diagnosis: Intractable back pain Additional Pertinent Hx: Per EMR, The patient is a 64 y.o. female who presents with presented with1 week history of acute onset pain in the right lower extremity involving the lower back. She endorses a prior history of chronic lower back pain. Patient reported a fall associated with the right leg weakness. She denies bowel or urinary incontinence. She was evaluated at [facility], she had an MRI of the [...] injury in the past year?: Yes Active Assisted Living Associate: Yes Occupation: Retired SUBJECTIVE: Patient seated in bedside chair upon arrival; agreeable to therapy this date. Patient pleasant and cooperative throughout session. PAIN: 10/02: Vitals: Vitals not assessed per clinical judgement, see nursing flowsheet COGNITION: WFL ADL: Grooming: Modified Independent. Hair care seated in bedside chair Upper Extremity Dressing: Minimal Assistance. Carroll/doff house robe Lower Extremity Dressing: Minimal Assistance. With game bird farmer in order to carroll/doff hospital shorts with verbal/visual cues to complete, demonstrating good understanding. Footwear Management: Supervision, X 1, with verbal cues , and with increased time for completion. Utilized game bird farmer/sock aid in order to doff/carroll B socks [...] minutes with 0 vcs for safety and ModIndep to increase indep and endurance with all [...] indep within home environment. Additional Goals?: No Shelter Goals Time Frame for Shelter Goals : No LTGs d/t short estimated length of stay. Following session, patient left in safe position with all fall risk precautions in place. Cosigned by Angela Dawkins OT at 07/10/2024 8:57 AM EDT * Berny Lewis PA-C - 07/10/2024 7:38 AM EDT Department of Orthopedic Surgery Spine [...] likely tomorrow after BM Berny Lewis PA-C * Jose Sharif MD - 07/09/2024 6:24 PM EDT INTERNAL MEDICINE Progress Note 07/09/2024 6:24 PM [...] H/H in am PT/OT Jose Sharif MD, * Garima Rosales, PT - 07/09/2024 2:49 PM EDT [facility] PHYSICAL THERAPY MISSED TREATMENT NOTE [facility] 7K Date: 07/09/2024 Patient Name: Carroll Fuentes : 1960 (64 y.o.) Gender: female REASON FOR MISSED TREATMENT: Missed Treat. Attempted x3 today. 1st attempt, pt with tech on BSC and then requesting to eat breakfast. 2nd attempt, OT with pt. 3rd attempt, wrapper caser in room to complete assessment. * Angela Dawkins, OT - 07/09/2024 1:44 PM EDT [facility] INPATIENT OCCUPATIONAL THERAPY [facility] 7K EVALUATION Discharge Recommendations: [...] 64 y.o. female who presents with presented with1 week history of acute onset pain in the right lower extremity involving the lower back. She endorses a prior history of chronic lower back pain. Patient reported a fall associated with the right leg weakness. She denies bowel or urinary incontinence. She was evaluated at [facility], she had an MRI of the [...] injury in the past year?: Yes Active Assisted Living Associate: Yes Occupation: Retired VISION:Corrected HEARING: WFL COGNITION: [...] minutes with 0 vcs for safety and ModIndep to increase indep and endurance with all [...] indep within home environment. Additional Goals?: No Creative Services Director Goals Time Frame for Creative Services Director Goals : No LTGs d/t short estimated length of stay. AM-PAC Inpatient Daily Activity Raw Score: 17 AM-PAC Inpatient ADL T-Scale Score : 37.26 Following session, patient left in safe position with all fall risk precautions in place. * Irma Villagomez RN - 07/09/2024 10:32 AM EDT Order for back brace and face sheet faxed to [facility]. * Berny Lewis, ARI-C - 07/09/2024 6:57 AM EDT Department of Orthopedic Surgery Spine Service Attending Progress Note Subjective: POD#1, Patient sitting up in bed. Report N/T right leg same as pre- op. Pain improved. Denies bladder or bowel dysfunction. [...] 4: Discharge Planning: pending Berny Lewis PA-C * Aziza Brown RN - 07/08/2024 6:41 PM EDT 1835 pt arrived to pacu, awakens to voice. Respirations unlabored on 2L NC. Sites CDI with [address] VSS. Pt states pain 6/10 at this time, medicated by HOUSEPERSON 1840 pt resting, resp easy. VSS 1850 pt awakens to voice, states pain 5/10 and tolerable. VSS 1900 c/o pain 7/10, medicated with 50 mcg fentanyl 1905 no change in pain status, medicated with 50 mcg fentanyl 1910 pt resting, resp easy. VSS 1915 pt resting, resp easy. VSS 1925 pt meets criteria for discharge from pacu at this time. Pt transported to [facility] in stable condition * Kusum Conte RN - 07/08/2024 4:04 PM EDT Patient to OR at this time. * Jose Sharif MD - 07/08/2024 1:23 PM EDT INTERNAL MEDICINE Progress Note 07/08/2024 1:23 PM [...] labs Awaiting OR. Jose Sharif MD, MD * Kimberlyn Chapman - 07/07/2024 2:02 PM EDT Spiritual Health History and Assessment/Progress Note [facility] (P) Initial Encounter, , , Name: Carroll Fuentes Age: 64 y.o. Sex: female Language: Khmer Rastafari: Amish Intractable back pain Date: 07/07/2024 Total Time Calculated: (P) 14 min Spiritual Assessment began in [facility] 7K Referral/Consult From: (P) Nurse Encounter Overview/Reason: (P) Initial Encounter Service Provided For: (P) Patient Liliane, Belief, Meaning: Patient identifies as spiritual, is connected with a liliane tradition or spiritual practice, and hasbeliefs or practices that help with coping during [...] bed. Patient expressed her emotions and feelings withthe toll of her back pain and facing [...] Jefe, especially since she was born on hisbirthday, and how she loves everything about the latter day. Patient finds peace and hope in her liliane as a restorationism and desires to have sacrament of the sick by a terra cotta mason, before her surgery tomorrow afternoon. I told the patient that I will let the spiritual care team know. Offered patient words of encouragement, quoted Scripture, and prayed with the patient, at her request. Patient expressed gratitude. Made patient aware of industrial truck operator availability and support. Patient Interventions include: Facilitated expression of thoughts and feelings, Explored spiritual coping/struggle/distress, Affirmed coping skills/support systems, and Provided sacramental/religiousritual Family/Friends Interventions include: No family/friends present Patient Plan of Care: Contact Liliane community relations manager for support or sacramental needs Family/Friends Plan of Care: No family/friends present documented in this encounterBon [facility]03[facility] Hospital Discharge instructions* Discharge Instructions* Bhavani Anderson RN - 07/11/2024 9:47 AM [...] All vegetables, especially asparagus, pruitt sprouts, broccoli, [place] sprouts, cabbage, carrots, cauliflower, celery, corn, greens, [...] hands with soap and water or an alcohol- based hand rub beforeand after visiting you. If you do not [...] taking more than one drug. This includes bpzc-sku-wzdrtyl medication and herb or dietary supplements. Plan ahead for refills so you do not run out. Call Your Doctor If Any of the Following Occurs It is important for you to check your recovery once you leave the hospital. That way, you can alertyour doctor to any problems immediately. If any of the following occur, call your doctor: Signs of infection, including fever, chills, redness, swelling, increasing pain, excessive bleeding, or discharge from the incision site The stitches or ramirez come apart at the incision site Nausea and/or vomiting that you can't control with the medications you were given after surgery, orwhich persist for more than two days after [...] and possible side effects documented in this encounterBon [facility]03[facility]16[facility]25 NotePROCEDURE: XR LUMBAR SPINE 1 VW CLINICAL INFORMATION: [...] loss of vertebral body height is seen. [id number] NotePROCEDURE: XR LUMBAR SPINE 1 VW CLINICAL INFORMATION: [...] Signed by: Sivakumar Betts MD 07/08/24 [facility] Evaluation note* Diagnosis Onset Date Resolution Status [...] h hyperglycemia acute July 04, 2024 2:57pm Preop exam for internal medicine non eactive July 04, 2024 2:57pm [facility] Work Phone: 1(599) 768-713203-03-2025 Evaluation note* Diagnosis Onset Date Resolution Status [...] hyperglycemia acute July 04, 2024 2:57pm [facility] Work Phone: 1(951) 630-519003-03-2025 Evaluation note* Diagnosis Onset Date Resolution Status [...] 9:25am Acute blood loss anemia acute [facility] 2024 10:08am Adverse effect of mixed sedatives acute July 18, 2024 10:08am Central stenosis of spinal canal acu te July 18, 2024 10:08am Herniated intervertebral dis c of lumbar spine acute July 18, 2024 10:08am Hypotension due to hypovolemia acute July 18, 2024 10:08am Type 2 diabetes mellitus wit h hyperglycemia acute July 18, 2024 10:08am Visual hallucinations acute Mar 2024 10:08am [facility] Work Phone: 1(659) 938-575703-03-2025 Evaluation note* Diagnosis Onset Date Resolution Status [...] 9:25am Acute blood loss anemia acute [facility] 2024 10:08am Central stenosis of spinal canal acu te July 18, 2024 10:08am Herniated intervertebral dis c of lumbar spine acute July 18, 2024 10:08am Hypotension due to hypovolemia acute July 18, 2024 10:08am Type 2 diabetes mellitus wit h hyperglycemia acute July 18, 2024 10:08am Visual hallucinations acute [facility] 2024 10:08am [facility] Work Phone: 1(329) 912-803602-07-2024 Evaluation note* Encounter Date Diagnosis Assessment Notes Treatment Notes Treatment Clinical Notes May, Autoimmune thyroiditis (ICD-10 - E06.3) May, Elevated cholesterol (ICD-10 - E78.00) May, Type 2 diabetes mellitus with hyperglycemia, without long-term current use of insulin (ICD-10 - E11.65) May, Primary hypertension (ICD-10 - I10) May, Intractable chronic migraine without aura and without status migrainosus (ICD-10 - G43.719) [facility] Other 01-15-2024 Evaluation note* Encounter Date Diagnosis Assessment Notes Treatment Notes Treatment Clinical Notes Apr, Intractable chronic migraine without aura and without status migrainosus (ICD-10 - G43.719) [facility] Other 01-08-2024 Evaluation note* Encounter Date Diagnosis Assessment Notes Treatment Notes Treatment Clinical Notes Apr, Intractable chronic migraine without aura and without status migrainosus (ICD-10 - G43.719) [facility] Other 01-05-2024 Evaluation note* Encounter Date Diagnosis [...] Begin Amitriptyline Stop Tizanidine. MRI cervical spine [facility] Other 08-31-2023 Evaluation note* Encounter Date Diagnosis Assessment Notes Treatment Notes Treatment Clinical Notes Nov, Primary hypertension (ICD-10 - I10) [facility] Other 08-28-2023 Evaluation note* Encounter Date Diagnosis Assessment Notes Treatment Notes Treatment Clinical Notes Nov, Adverse effect of smooth muscle relaxant, subsequent encounter (ICD-10 - T44.3X5D) Avoid combination of Klonopin and Zanaflex when scheduled configuration management specialist. May want to cut back on [...] Pain in left shoulder (ICD-10 - M25.512) [facility] Other 06-30-2023 Evaluation note* Encounter Date Diagnosis Assessment Notes Treatment Notes Treatment Clinical Notes Sep, Type 2 diabetes mellitus with hyperglycemia, without long-term current use of insulin (ICD-10 - E11.65) [facility] Other 06-05-2023 Evaluation note* Encounter Date Diagnosis Assessment Notes Treatment Notes Treatment Clinical Notes Sep, Candidiasis, intertriginous (ICD-10 - B37.2) [facility] Other 04-12-2023 Evaluation note* Encounter Date Diagnosis [...] Jul, Other specified hypothyroidism (ICD-10 - E03.8) [facility] Backplane Other Evaluation noteNo InformationNortGeisinger Medical Center Backplane Other Evaluation noteNo assessment information available [facility] Work Phone: Evaluation note* Diagnosis Onset Date Resolution Status Cervical pain acute Cervical spondylosis acute Cervical pain acute Cervical spondylosis acute Painful lumpy right breast a cute [facility] Work Phone: Evaluation note* Diagnosis Intractable back pain- Primary Backache, unspecified Spinal stenosis of lumbar region with neurogenic claudication Spinal stenosis, lumbar region, with neurogenic claudication Primary hypertension Unspecified essential hypertension Type 2 diabetes mellitus, without long-term current use of insulin (HCC) documented in this encounter [facility] note* Diagnosis Osteoarthritis of right knee, unspecified osteoarthritis type documented in this encounter Keith Peter [facility] general Narrative - Reported* Type Description [...] LEFT HEART CATHETERIZATION 2015 Hospitalization History SEE [facility] Other History general Narrative - Reported* Type [...] Right knee arthroscopy 10/2022 Hospitalization History SEE [facility] Other Reason for referral (narrative)* Reason Evaluation of right knee pain Diagnosis 1 Strain of right knee , subsequent encounter (E35.453B) Referral Organization [facility] Hamilton roe Referring Provider First Name Robert Referring Provider Last Name Hamilton Referring Provider Specialty Internal Me yoni Referred Provider Rishi Parker Jr Referred Provider Specialty Orthopedic S urgery Referral Priority Routine [facility] Other Reason for referral (narrative)* Reason Referral for neck pa in Diagnosis 1 Cervicalgia (M54.2) Diagnosis 2 Cervical spondylosis (M47.812) Referral Organization [facility] Odette roe Referring Provider First Name Robert Referring Provider Last Name Hamilton Referring Provider Specialty Internal Me dicine Referred Organization [facility] Referred Address [address] [place], [place],[address] Referred Provider Specialty Pain Medicin e Referral Priority Routine General Notes Patient has hx of ce rvical discectomy and fusion and presented w/ persistent neck pain, which radiated upwards causing a headache. She is being referred for treatment with the pain clinic. Clinical Notes Include MRI [facility] Other Reeiyj for referral (narrative)No reason for referral information availableSt. [facility] Hospital Work Phone: Reason for visit Narrative* Auth/Cert Specialty Diagnoses / Procedures Referred By Jass adams Referred To Contact Diagnoses Intractable back pain large disc herniation Jose Sharif MD [address] [place] [address] Phone: tel: fax: Primary Data [address] [place] [address] Referral ID Status Reason Start Date Expiration Date Visits Re quested Visits Authorized [id number] 1 1 Primary DataReason for visit Narrative* Imaging (Routine) - Closed Specialty Diagnoses / Procedures Referred By Jass adams Referred To Contact Radiology Diagnoses Osteoarthritis of right knee, unspecified osteoarthritis type Procedures MRI KNEE RIGHT WO CONTRAST Tomás Helton, DO [address] [place] [address] Phone: tel: fax: Referral ID Status Reason Start Date Expiration Date Visits Re quested Visits Authorized [id number] Closed 11/14/2024 11/14/2025 1 1 Primary Data Summary Purpose Family History No Family History [...] Communication Babatunde Fuentes Spouse Primary Decision Maker Documents on File Type Date Recorded Patient Veterinary Medical Officer Expl anation ACP-Advance Directive 07/13/2024 10:35 PM Date Activated Date Inactivated Comments 07/06/2024 7:55 [...] 2:57pm Type 2 diabetes mellitus with hyperglyce [facility] July 04, 2024 2:57pm Acute blood loss [...] 10:08am Type 2 diabetes mellitus with hyperglyce [facility] July 18, 2024 10:08am Visual hallucinations July 18, 2024 1 0:08am Chief Complaint Admit Date rt knee buckling, lumps in left armpit M ay 2024 3:13pm 6 month f/u October 11, 2024 10:2 6am R Side Pain November 28, 2024 1:2 9pm Reason for Visit Admit Date Acute blood loss anemia September 12, 2024 3 :13pm Hypertension September 12, 2024 3:13p m Knee pain, right September 12, 2024 3:13p m Mass of left axilla September 12, 2024 3:13p m Prerenal azotemia September 12, 2024 3:13p m Type 2 diabetes mellitus with hyperglyce dion September 12, 2024 3:13pm Hypercholesterolemia October 11, 2024 10: 26am Hypertension October 11, 2024 10:2 6am Hypothyroid October 11, 2024 10:2 6am Major depression October 11, 2024 10:2 6am STEPHANIE (obstructive sleep apnea) October 11, 2024 10:26am Type 2 diabetes mellitus with hyperglyce dion October 11, 2024 10:26am Welcome to Medicare preventive visit Burton e 2024 10:26am Additional Source Comments INFORMATION SOURCE (unrecogn ized section and content) DATE CREATED AUTHOR 06/20/2018 [facility] DATE CREATED AUTHOR AUTHOR'S ORGANIZ ATION 07/04/2018 [facility] DATE CREATED AUTHOR AUTHOR'S ORGANIZ ATION 09/18/2020 [facility] DATE CREATED AUTHOR AUTHOR'S ORGANIZ ATION 08/27/2022 [facility] DATE CREATED AUTHOR AUTHOR'S ORGANIZ ATION 04/18/2024 [facility] DATE CREATED AUTHOR AUTHOR'S ORGANIZ ATION 06/23/2024 [facility] DATE CREATED AUTHOR AUTHOR'S ORGANIZ ATION 08/10/2024 [facility] DATE CREATED AUTHOR AUTHOR'S ORGANIZ ATION 12/03/2024 Rubenlevy Parsons Michael neumann REASON FOR VISIT (unrecogniz ed section and content) right knee painAdditional Me dicationRefillRefillsNo InformationWants in on TuesdayTBHBPsleep study ordermamm resultsMigrainesLab orderMigrainesMRI resultsmigrainesMigrainesrefills Care Teams (unrecognized sec tion and content) Team Status: Active Member Role Status Dates Robert Villasenor DO Primary Care Provider Active Team Status: Inactive Member Role Status Dates Robert Villasenor DO Primary Care Provider Active Start: September 12, 2024 End: September 12, 2024 Robert Villasenor DO Attending Provider Active Sta rt: September 12, 2024 End: September 12, 2024 Team Status: Active Member Role Status Dates Robert Villasenor DO Primary Care Provider Active Start: September 14, 2024 Robert Villasenor DO Attending Provider Active Sta rt: September 14, 2024 Team Status: Active Member Role Status Hakeem Villasenor DO Primary Care Provider Active Start: September 21, 2024 Robert Villasenor DO Attending Provider Active Sta rt: September 21, 2024 Team Status: Inactive Member Role Status Hakeem Villasenor DO Primary Care Provider Active Start: October 11, 2024 End: October 11, 2024 Robert Villasenor , Attending Provider Active Sta rt: October 11, 2024 End: October 11, 2024 Team Status: Active Member Role Status Hakeem Villasenor DO Primary Care Provider Active Start: October 13, 2024 Robert Villasenor DO Attending Provider Active Sta rt: October 13, 2024 Team Status: Inactive Member Role Status Hakeem Villasenor DO Primary Care Provider Active Start: November 28, 2024 End: November 28, 2024 Robert Villasenor DO Attending Provider Active Sta rt: November 28, 2024 End: November 28, 2024 Team Status: Active Member Role Status [...] July 04, 2024 End: July 04, 2024 Senior Mainframe Programmer Analyst Relationship Specialty Start Date End Date Robert Villasenor DO [address] [place] [address] PCP - General Internal Medicine 07/06/24 Team [...] July 25, 2024 End: July 25, 2024 Senior Mainframe Programmer Analyst Relationship Specialty Start Date End Date Robert Villasenor DO [address] [place] [address] PCP - General Internal Medicine 07/06/24 Goals [...] with hypoproteinemia 0019 (New Bag - Provider: Chrsisy Cuellar RN)0118 (Stopped - Provider: Chrissy Cuellar [...] Bijal Zavala RN)0755 (Given - Provider: Irma Villagomez, FLETCHER) citalopram (CELEXA) tablet 20 mg 20 mg, Oral, DAILY, First dose on 07/07/24 at 0900, Until Discontinued 754 (Given - Provider: Irma Villagomez RN) 08 (Given - Provider: Bhavani Anderson RN) 842 [...] RN)2001 (Given - Provider: Sommer Alcala, FLETCHER) 842 (Given - Provider: Bhavani Anderson RN)2055 (Given - Provider: Chrissy Cuellar RN) 842 (Given - Provider: Bhavani Anderson RN)2099 (Due) [...] parameters not met)2056 (Given - Provider: Chrissy Cuellar RN) 07 (Not Given - Provider: Bhavani Anderson RN [...] Irma Villagomez RN)1301 (Given - Provider: Irma Villagomez, FLETCHER)1622 (Not Given - Provider: Irma Villagomez RN - Reason: Order parameters not met)2003 (Given - Provider: Sommer Alcala RN) 0843 (Given - Provider: Bhavani Andersno, FLETCHER)1105 (Not Given - Provider: Bhavani Anderson [...] 0634 (Given - Provider: Chrissy Cuellar RN) lisinopril (PRINIVIL;ZESTRIL) tablet 5 mg 5 mg, [...] TIMES DAILY, First dose on Tue07/08/24 at 2099, Until Discontinued, Post-op 0755 (Given - Provider: [...] 2024 (New Bag - Provider: Chrissy Cuellar RN)222 (Stopped - Provider: Chirssy Cuellar RN) sodium chloride flush 0.9 % injection 5-40 mL 5-40 mL, IntraVENous, EVERY 12 HOURS SCHEDULED (2 times per day), First dose on Tue07/08/24 at 2099, Until Discontinued, For Line Patency: Peripheral IV [...] Infusing) 0843 (Given - Provider: Bhavani Anderson RN)2099 (Due) sodium zirconium cyclosilicate (LOKELMA) oral suspension [...] Post-op 1025 (Stopped - Prov ider: Bhavani nAderson RN) PRN Medication Order 07/09/2024 07/10/2024 07/11/2024 [...] in combination with first line therapy., Post-op 171 (Given - Provider: Bhavani Anderson RN) cyclobenzaprine [...] for injection by adding 1 mL of environmental emergencies planner-supplied sterile diluent or sterile water for injection [...] Villagomez, FLETCHER)1724 (See Alternative - Provider: Irma Villagomez, FLETCHER)2130 (See Alternative - Provider: Sommer Alcala RN) 0134 (Given - Provider: Sommer Alcala RN)0532 (See Alternative - Provider: Sommer Alcala RN)0944 (See Alternative - Provider: Bhavani Anderson, FLETCHER)1555 (See Alternative - Provider: Bhavani Anderson, FLETCHER)2056 (See Alternative - Provider: Chrissy Cuellar, FLETCHER) 0353 (Given - Provider: Chrissy Cuellar RN)0843 (See Alternative - Provider: Bhavani Anderson, FLETCHER) HYDROcodone-acetaminophe n (NORCO) 5-325 MG per tablet 2 tablet(Linked Group 3) 2 tablet, Oral, EVERY 4 HOURS PRN, Starting on Tue07/06/24 at 1954, Until Discontinued, Pain Severe (7-10), Maximum dose of acetaminophen is 4000 mg from all sources in 24 hours. 0442 (Given - Provider: Bijal Zavala, FLETCHER)0853 (Given - Provider: Irma Villagomez, RN)1302 (Given - Provider: Irma Villagomez, RN)1724 (Given - Provider: Irma Villagomez, RN)2130 (Given - Provider: Sommer Alcala RN) 0134 (See Alternative - Provider: Sommer Alcala RN)0532 (Given - Provider: Sommer Alcala RN)0944 (Given - Provider: Bhavani Anderson, RN)1555 (Given - Provider: Bhavani Anderson, RN)2056 (Given - Provider: Chrissy Cuellar, FLETCHER) 0353 (See Alternative - Provider: Chrissy Cuellar, [...] BE BASED ON THE PRIMARY CLINICAL RECORDS. [employer] provides no warranty or guarantee of the accuracy or completeness of information in this document.
--- NOTE | 2024-12-20 07:38 | XR_ITS ---
The [address] [address] Patient Name: CARROLL HARDEN MRN: [id number] date: 1960 Sex: F Assigned Patient Location: [facility] Current Patient Location: [facility] Accession/Order Number: [id number] Exam Date: 12/20/2024 07:40 Report Date: 12/20/2024 10:31 At the request of: MICA VILLASENOR DO Procedure: XR hip RT 2V w/ pelvis RIGHT HIP WITH AP PELVIS - 3 views COMPARISON: None available CLINICAL DATA: Right hip pain. History of fall 6 weeks ago. AP view of the pelvis as well as AP and frog-lateral views of the right hip were obtained. There is osteopenia. No fracture or dislocation is identified. The hip joint spaces are maintained. There is no significant hypertrophy. Enthesophytes are visualized at the iliac crests and greater trochanters. The SI joints are intact. There are postoperative and degenerative changes involving the lower imaged lumbar spine. No soft tissue abnormalities are present. XR/XR hip RT 2V w/ pelvis IMPRESSION: NO ACUTE BONY FINDINGS. Impression dictated by: Frannie Armenta M.D. 12/20/2024 10:31 AM Dictation Location: [place] [address] Electronically authenticated by: [id number] Y Date: 12/20/2024 10:31
== END 2024-12-20 07:31 | disposition home or self-care (01) ==
LOC: RAD 07:33
PROVIDERS: PCP Internal Medicine; Visit Provider Internal Medicine
DX: M25.551 Pain in right hip (principal)
CPT/HCPCS: 73502

== ENCOUNTER 2025-01-07 06:43 | Outpatient (OUT) | payer OTHER, SELFPAY ==
--- OUTSIDE RECORDS SUMMARY | 2025-01-07 06:46 | XMS_ITS | CCD ---
Author Organization [facility] Care Team Providers Care Site Technician Name Role Phone JENNA GARSIA Admitting Unavailable JENNA GARSIA Attending Unavailable [...] Unavailable Hamilton STOCKTON Robert Primary Care Provider SHIRA, OLUREMI A Admitting Unavailable SHIRA, OLUREMI A Attending Unavailable TERA TRAN Referring Unavailable HAMILTON ROBERT Primary Care Unavailable ELOISE VELIZ Consulting Unavailable Hamilton STOCKTON Robert Primary Care Provider Hamilton Robert Attending Provider HAMILTON ROBERT Primary Care Unavailable TOMÁS HELTON Referring Unavailable TOMÁS HELTON Attending Unavailable Allergies Allergy Classification Reported Allergen(s) Allergy Type Date of Onset Reaction(s) Facility (3 sources) Contrast media; Translations: [CONTRAST DYE] Propensity to adverse reactions to drug (disorder) 09-30-19 11 [facility] Repository (2 sources) HYDROmorphone; Translations: [HYDROMORPHONE (BULK)] Drug Allergy 08-17-19 17 [facility] Repository (20 sources) Latex; Translations: [LATEX] Propensity to adverse reactions to drug (disorder) 09-30-19 11 Hives [facility] Repository (2 sources) Meperidine; Translations: [MEPERIDINE (PF)] Drug Allergy 09-30-19 11 [facility] Repository (2 sources) Povidone-Iodine; Translations: [POVIDONE-IODINE] Drug Allergy 10-21-19 17 [facility] Repository (2 sources) SUMAtriptan; Translations: [SUMATRIPTAN SUCCINATE] Drug Allergy 09-30-19 11 [facility] Repository (2 sources) INFLUENZA VACCINE TRI-SP 09-10; Translations: [INFLUENZA VACCINE TRI-SP 09-10] Propensity to adverse reactions to drug (disorder) 09-30-19 11 [facility] Repository (3 sources) DHE; Translations: [DHE] Propensity to adverse reactions to drug (disorder) 10-24-19 13 [facility] Repository (20 sources) HYDROmorphone Drug Allergy 12-20-19 24 Unknown, Unknown Reaction [facility] (20 sources) Iodine; Translations: [iodine] Drug Allergy 10-24-19 13 Unknown, Unknown Reaction [facility] Repository (20 sources) Meperidine Drug Allergy 12-20-19 24 Unknown, Unknown Reaction [facility] (20 sources) SUMAtriptan Drug Allergy 12-20-19 24 Hives [facility] (20 sources) Fluad Drug allergy 12-20-19 24 Unknown, Unknown Reaction [facility] (19 sources) DHEA Drug allergy 07-07-19 25 Anaphylaxis [facility] [employer] Other (2 sources) HYDROmorphone; Translations: [Dilaudid] Drug Allergy 10-24-19 13 [facility] Repository (1 source) Meperidine Drug Allergy 10-24-19 13 [facility] Repository (2 sources) Plasmin; Translations: [Imitrex] Drug Allergy 10-24-19 13 [facility] Repository (12 sources) influenza A virus (H1N1) antigen / influenza A virus (H3N2) antigen / influenza B virus antigen Drug Allergy 11-21-19 14 Comment:FLU VACCINE [employer] [facility] [employer] Other (12 sources) Contraindication to Flu Injection Propensity to adverse reactions 03-07-20 14 Comment:advers e rxn/side effects [employer] [facility] [employer] Other (3 sources) patient allergy list reviewed by nurse or physicia Propensity to adverse reactions 12-22-19 14 Comment:Done [employer] [facility] [employer] Other (8 sources) Calcium Drug Allergy 12-20-19 24 Unknown Reaction [facility] (8 sources) Calcium Carbonate Drug Allergy 12-20-19 24 Unknown Reaction [facility] (8 sources) prasterone (DHEA) Allergy to substance 12-20-19 24 Unknown Reaction [facility] (8 sources) Fluad Quadrivalent Allergy to substance 04-29-19 24 Comment:FLU VACCINE [facility] Comment on above: Onset Date: 11/21/19 14 (1 source) Meperidine; Translations: [Demerol HCl] Drug Allergy [facility] Repository (1 source) flu vaccines; Translations: [flu vaccines] Propensity to adverse reactions (disorder) [facility] Repository (2 sources) Iodine Strong Propensity to adverse reactions to drug 07-07-19 Hives [facility] [employer] [facility] (2 sources) Meperidine Drug Allergy 07-07-19 Other (See Comments) [facility] Medications Current [...] Start: 09-30-2022 take 3 tablets by mo [facility] at bedtime clonazePAM 0.5 MG TAKE 3 TABLETS BY MOUTH AT BEDTIME for 30 days Sep, Active take 1 tablet by [facility] once daily as needed clonazePAM (KLONOPIN) 1 [...] for injection by adding 1 mL of material movers-supplied sterile diluent or sterile water for injection [...] therapy Start: 12-20-2023 take [address] [facility] once daily Magnesium Aspart,Citrate,Oxide 400 mg magnesium capsule Active 400 MG PO Daily December 20, 2023 12:00am Start: 12-20-2023 [address] [facility] once daily Magnesium Aspart,Citrate,Oxide 400 mg [...] disintegrating tablet 4 mg polyethylene glycol 3350 [id number] mg powder for oral solution (1 source) [...] every two hours as needed for headache [employer] 10 MG 1 tablet Orally PRN headache, [...] 14, 2024 7:50pm 20 ml albumin human, jail 250 mg/ml injection (1 source) Human Serum [...] Start: 07-08-2024 take 10 mg rectal ro [place] once daily as needed for constipation 10 [...] Post-op docusate sodium 50 mg / sennosides, jail 8.6 mg oral tablet (1 source) Start: [...] 20 mL/lumen, Post-op sodium zirconium cyclosilica [place] 11526 mg powder for oral suspension (1 source) [...] 5:11pm take 1/2 to 1 tablet at [facility] Start: 06-17-2023 End: 12-16-2023 take 0.5 [...] Isreal Garcia DO 12/01/24 Final result Normal [facility] Basophils Auto (Bld) [#/Vol] Ordered By: Robert Villasenor on 10-13-2024 Basophils (Bld) [#/Vol] 0.0 10 3/uL 0.0-0.1 [facility] Basophils/100 WBC Auto (Bld) Ordered By: Robert Villasenor on 10-13-2024 Basophils/100 WBC (Bld) 0.6 % 0.2-2.0 [facility] Cholesterol in LDL Calc [Mas s/Vol]Ordered By: Robert Villasenor on 10-13-2024 Cholesterol in LDL [Mass/Vol] 77.0 mg/dL [facility] Comment on above: <100 mg/dl [id number] 0-129 mg/dl NEAR OR ABOVE [id number] mg/dl BORDERLINE [id number] mg/dl HIGH>190 mg/dl VERY HIGH Cholesterol in VLDL Calc [Ma ss/Vol]Ordered By: Robert Villasenor on 10-13-2024 Cholesterol in VLDL [Mass/Vol] 30.8 mg/dL [facility] Eosinophils/100 WBC Auto (Bl d)Ordered By: Roebrt Villasenor on 10-13-2024 Eosinophils/100 WBC (Bld) 4.5 % 0.9-7.0 [facility] Erythrocyte distribution wid th Auto (RBC) [Ratio]Ordered By: Robert Villasenor on 10-13-2024 Erythrocyte distribution width (RBC) [Ratio] 12.6 % 11.0-15.0 [facility] Estimated glomerular filtrat ion rate (GFR) non- AmericanOrdered By: Robert Villasenor on 10-13-2024 GFR/1.73 sq M.predicted among non-blacks MDRD (S/P/Bld) [Vol rate/Area] 50 mL/min/{1.73_m2} Low >=60 mL/min/1.73 m 2 [facility] Globulin Calc (S) [Mass/Vol] Ordered By: Robert Villasenor on 10-13-2024 Globulin (S) [Mass/Vol] 3.6 g/dL [facility] Hematocrit Auto (Bld) [Volum e fraction]Ordered By: Robert Villasenor on 10-13-2024 Hematocrit (Bld) [Volume fraction] 37.7 % 36.0-48.0 [facility] Hemoglobin [Mass/volume] in BloodOrdered By: Robert Villasenor on 10-13-2024 Hemoglobin (Bld) [Mass/Vol] 12.0 g/dL 12.0-16.0 [facility] Laboratory - Chemistry and C hemistry - challengeOrdered By: Robert Villasenor on 10-13-2024 Albumin [Mass/Vol] 3.6 g/dL 3.4-5.0 [facility] ALP [Catalytic activity/Vol] 91 U/L 46-116 [facility] ALT [Catalytic activity/Vol] 29 U/L 14-59 [facility] AST [Catalytic activity/Vol] 23 U/L 15-37 [facility] Bilirubin [Mass/Vol] 0.6 mg/dL 0.2-1.0 [facility] Calcium [Mass/Vol] 8.9 mg/dL 8.5-10.1 [facility] Chloride [Moles/Vol] 103 mmol/L 98-107 [facility] Cholesterol [Mass/Vol] 161 mg/dL <=200 [facility] Cholesterol in HDL [Mass/Vol] 54 mg/dL 40-60 [facility] Comment on above: > or =60 mg/dl - LOW CARDIOVASCULAR RISK<40 mg/dl - HIGH CARDIOVASCULAR RISK CO2 [Moles/Vol] 26.8 mmol/L 21.0-32.0 [facility] Creatinine [Mass/Vol] 1.09 mg/dL High 0.55-1.02 [facility] GFR/1.73 sq M.predicted MDRD (S/P/Bld) [Vol rate/Area] mL/min/{1.73_m2} >=60 mL/min/1.73 m 2 [facility] Glucose [Mass/Vol] 75 mg/dL 74-106 [facility] Potassium [Moles/Vol] 4.3 mmol/L 3.5-5.1 [facility] Protein [Mass/Vol] 7.2 g/dL 6.4-8.2 [facility] Sodium [Moles/Vol] 141 mmol/L 136-145 [facility] Triglyceride [Mass/Vol] 154 mg/dL High <=150 [facility] Urea nitrogen [Mass/Vol] 28.0 mg/dL High 7.0-18.0 [facility] Urea nitrogen/Creatinine [Mass ratio] 25.7 mg/mg [facility] Laboratory - Hematology and Cell countsOrdered By: Robert Villasenor on 10-13-2024 Immature granulocytes/100 WBC (Bld) 0.3 % 0.0-0.5 [facility] Leukocytes [#/volume] correc chip for nucleated erythrocytes in Blood by Automated counOrdered By: Robert Villasenor on 10-13-2024 WBC corrected for nucl RBC Auto (Bld) [#/Vol] 6.4 10 3/uL 4.0-11.0 [facility] Lymphocytes Auto (Bld) [#/Vo l]Ordered By: Robert Villasenor on 10-13-2024 Lymphocytes (Bld) [#/Vol] 2.7 10 3/uL 1.2-3.8 [facility] Lymphocytes/100 WBC Auto (Bl d)Ordered By: Robert Villasenor on 10-13-2024 Lymphocytes/100 WBC (Bld) 42.6 % 20.5-60.0 [facility] MCH Auto (RBC) [Entitic mass ]Ordered By: Robert Villasenor on 10-13-2024 MCH (RBC) [Entitic mass] 26.1 pg Low 26.7-34.0 [facility] MCHC Auto (RBC) [Mass/Vol]Or dered By: Robert Villasenor on 10-13-2024 MCHC (RBC) [Mass/Vol] 31.8 g/dL 29.9-35.2 [facility] MCV Auto (RBC) [Entitic vol] Ordered By: Robert Villasenor on 10-13-2024 MCV (RBC) [Entitic vol] 82.0 fL 81.0-99.0 [facility] Microalbumin [Mass/volume] i n UrineOrdered By: Robert Villasenor on 10-13-2024 Albumin DL <= 20 mg/L (U) [Mass/Vol] mg/dL <=30.0 [facility] Monocytes Auto (Bld) [#/Vol] Ordered By: Robert Villasenor on 10-13-2024 Monocytes (Bld) [#/Vol] 0.5 10 3/uL 0.3-0.8 [facility] Monocytes/100 WBC Auto (Bld) Ordered By: Robert Villasenor on 10-13-2024 Monocytes/100 WBC (Bld) 8.5 % 1.7-12.0 [facility] Neutrophils Auto (Bld) [#/Vo l]Ordered By: Robert Villasenor on 10-13-2024 Neutrophils (Bld) [#/Vol] 2.8 10 3/uL 1.4-6.5 [facility] Neutrophils/100 WBC Auto (Bl d)Ordered By: Robert Villasenor on 10-13-2024 Neutrophils/100 WBC (Bld) 43.5 % 43.0-75.0 [facility] No Panel InformationOrdered By: Robert Villasenor on 10-13-2024 Eosinophils # (Auto) 0.3 10 3/uL 0.0-0.7 [facility] Immature Granulocyte # (Auto) 0.02 10 3/uL 0.00-0.03 [facility] Urine Random Creatinine 72.31 mg/dL 20.00-300.0 0 [facility] Platelet mean volume Auto (B ld) [Entitic vol]Ordered By: Robert Villasenor on 10-13-2024 Platelet mean volume (Bld) [Entitic vol] 9.8 fL 9.5-13.5 [facility] Platelets Auto (Bld) [#/Vol] Ordered By: Robert Villasenor on 10-13-2024 Platelets (Bld) [#/Vol] 227 10 3/uL 150-450 [facility] RBC Auto (Bld) [#/Vol]Ordere d By: Robert Villasenor on 10-13-2024 RBC (Bld) [#/Vol] 4.60 10 6/uL 4.20-5.[address] [facility] Serum or plasma albumin/glob ulin mass ratioOrdered By: Robert Villasenor on 10-13-2024 Albumin/Globulin [Mass ratio] 1.0 {ratio} [facility] Serum or plasma anion gap de terminationOrdered By: Robert Villasenor on 10-13-2024 Anion gap [Moles/Vol] 15.5 mmol/[facility] Serum or plasma total choles terol/high density lipoprotein (HDL) cholesterol mass ratOrdered By: Robert Villasenor on 10-13-2024 Cholesterol.total/Chol esterol in HDL [Mass ratio] 3.0 {ratio} [facility] Comment on above: 3.3 - 4.4 LOW RISK4. 4 - 7.1 AVERAGE RISK7.1 - 11.0 MODERATE RISK>11.0 HIGH RISK Basophils Auto (Bld) [#/Vol] on 09-21-2024 Basophils (Bld) [#/Vol] 0.0 10 3/uL 0.0-0.1 [facility] Basophils/100 WBC Auto (Bld) on 09-21-2024 Basophils/100 WBC (Bld) 0.6 % 0.2-2.0 [facility] Cholesterol in LDL Calc [Mas s/Vol]on 09-21-2024 Cholesterol in LDL [Mass/Vol] 57.0 mg/dL [facility] Comment on above: <100 mg/dl [id number] 0-129 mg/dl NEAR OR ABOVE [id number] mg/dl BORDERLINE [id number] mg/dl HIGH>190 mg/dl VERY HIGH Cholesterol in VLDL Calc [Ma ss/Vol]on 09-21-2024 Cholesterol in VLDL [Mass/Vol] 37.6 mg/dL [facility] Eosinophils/100 WBC Auto (Bl d)on 09-21-2024 Eosinophils/100 WBC (Bld) 14.7 % High 0.9-7.0 [facility] Erythrocyte distribution wid th Auto (RBC) [Ratio]on 09-21-2024 Erythrocyte distribution width (RBC) [Ratio] 11.9 % 11.0-15.0 [facility] Estimated glomerular filtrat ion rate (GFR) non- Americanon 09-21-2024 GFR/1.73 sq M.predicted among non-blacks MDRD (S/P/Bld) [Vol rate/Area] 54 mL/min/{1.73_m2} Low >=60 mL/min/1.73 m 2 [facility] Globulin Calc (S) [Mass/Vol] on 09-21-2024 Globulin (S) [Mass/Vol] 3.7 g/dL [facility] Hematocrit Auto (Bld) [Volum e fraction]on 09-21-2024 Hematocrit (Bld) [Volume fraction] 35.4 % Low 36.0-48.0 [facility] Hemoglobin [Mass/volume] in Bloodon 09-21-2024 Hemoglobin (Bld) [Mass/Vol] 11.0 g/dL Low 12.0-16.0 [facility] Laboratory - Chemistry and C hemistry - challengeon 09-21-2024 Albumin [Mass/Vol] 3.2 g/dL Low 3.4-5.0 [facility] ALP [Catalytic activity/Vol] 89 U/L 46-116 [facility] ALT [Catalytic activity/Vol] 29 U/L 14-59 [facility] AST [Catalytic activity/Vol] 22 U/L 15-37 [facility] Bilirubin [Mass/Vol] 0.4 mg/dL 0.2-1.0 [facility] Calcium [Mass/Vol] 9.2 mg/dL 8.5-10.1 [facility] Chloride [Moles/Vol] 105 mmol/L 98-107 [facility] Cholesterol [Mass/Vol] 136 mg/dL <=200 [facility] Cholesterol in HDL [Mass/Vol] 42 mg/dL 40-60 [facility] Comment on above: > or =60 mg/dl - LOW CARDIOVASCULAR RISK<40 mg/dl - HIGH CARDIOVASCULAR RISK CO2 [Moles/Vol] 28.3 mmol/L 21.0-32.0 [facility] Creatinine [Mass/Vol] 1.02 mg/dL 0.55-1.02 [facility] GFR/1.73 sq M.predicted MDRD (S/P/Bld) [Vol rate/Area] mL/min/{1.73_m2} >=60 mL/min/1.73 m 2 [facility] Glucose [Mass/Vol] 119 mg/dL High 74-106 [facility] Potassium [Moles/Vol] 5.3 mmol/L High 3.5-5.1 [facility] Protein [Mass/Vol] 6.9 g/dL 6.4-8.2 [facility] Sodium [Moles/Vol] 143 mmol/L 136-145 [facility] Triglyceride [Mass/Vol] 188 mg/dL High <=150 [facility] TSH Qn 0.633 m[IU]/L 0.358-3.740 [facility] Urea nitrogen [Mass/Vol] 31.0 mg/dL High 7.0-18.0 [facility] Urea nitrogen/Creatinine [Mass ratio] 30.4 mg/mg [facility] Laboratory - Hematology and Cell countson 09-21-2024 Immature granulocytes/100 WBC (Bld) 0.2 % 0.0-0.5 [facility] Leukocytes [#/volume] correc chip for nucleated erythrocytes in Blood by Automated counon 09-21-2024 WBC corrected for nucl RBC Auto (Bld) [#/Vol] 5.3 10 3/uL 4.0-11.0 [facility] Lymphocytes Auto (Bld) [#/Vo l]on 09-21-2024 Lymphocytes (Bld) [#/Vol] 2.1 10 3/uL 1.2-3.8 [facility] Lymphocytes/100 WBC Auto (Bl d)on 09-21-2024 Lymphocytes/100 WBC (Bld) 39.2 % 20.5-60.0 [facility] MCH Auto (RBC) [Entitic mass ]on 09-21-2024 MCH (RBC) [Entitic mass] 26.1 pg Low 26.7-34.0 [facility] MCHC Auto (RBC) [Mass/Vol]on 09-21-2024 MCHC (RBC) [Mass/Vol] 31.1 g/dL 29.9-35.2 [facility] MCV Auto (RBC) [Entitic vol] on 09-21-2024 MCV (RBC) [Entitic vol] 83.9 fL 81.0-99.0 [facility] Monocytes Auto (Bld) [#/Vol] on 09-21-2024 Monocytes (Bld) [#/Vol] 0.4 10 3/uL 0.3-0.8 [facility] Monocytes/100 WBC Auto (Bld) on 09-21-2024 Monocytes/100 WBC (Bld) 8.4 % 1.7-12.0 [facility] Neutrophils Auto (Bld) [#/Vo l]on 09-21-2024 Neutrophils (Bld) [#/Vol] 1.9 10 3/uL 1.4-6.5 [facility] Neutrophils/100 WBC Auto (Bl d)on 09-21-2024 Neutrophils/100 WBC (Bld) 36.9 % Low 43.0-75.0 [facility] No Panel Informationon 09-21 Eosinophils # (Auto) 0.8 10 3/uL High 0.0-0.7 [facility] Immature Granulocyte # (Auto) 0.01 10 3/uL 0.00-0.03 [facility] Platelet mean volume Auto (B ld) [Entitic vol]on 09-21-2024 Platelet mean volume (Bld) [Entitic vol] 9.9 fL 9.5-13.5 [facility] Platelets Auto (Bld) [#/Vol] on 09-21-2024 Platelets (Bld) [#/Vol] 218 10 3/uL 150-450 [facility] RBC Auto (Bld) [#/Vol]on RBC (Bld) [#/Vol] 4.22 10 6/uL 4.20-5.[address] [facility] Serum or plasma albumin/glob ulin mass ratioon 09-21-2024 Albumin/Globulin [Mass ratio] 0.9 {ratio} [facility] Serum or plasma anion gap de terminationon 09-21-2024 Anion gap [Moles/Vol] 15.0 mmol/L [facility] Serum or plasma total choles terol/high density lipoprotein (HDL) cholesterol mass desiree 09-21-2024 Cholesterol.total/Chol esterol in HDL [Mass ratio] 3.2 {ratio} [facility] Comment on above: 3.3 - 4.4 LOW RISK4. 4 - 7.1 AVERAGE RISK7.1 - 11.0 MODERATE RISK>11.0 HIGH RISK Glucose mean value [Mass/vol ume] in Blood Estimated from glycated hemoglobinon 09-14-2024 Average glucose Estimated from glycated hemoglobin (Bld) [Mass/Vol] 146 mg/dL [facility] Hemoglobin A1c percentageon 09-14-2024 HbA1c (Bld) [Mass fraction] 6.7 % High 4.5-6.2 [facility] Comment on above: ADA RECOMMENDED LIMI T 4.0 - 6.0ADA THERAPEUTIC TARGET < 7.0ACTION SUGGESTED> 7.0 Microalbumin [Mass/volume] i n Urineon 09-14-2024 Albumin DL <= 20 mg/L (U) [Mass/Vol] 3.2 mg/dL <=30.0 [facility] No Panel Informationon 09-14 Urine Random Creatinine 260.08 mg/dL 20.00-300.0 0 [facility] Urine microalbumin/creatinin e mass ratioon 09-14-2024 Albumin/Creatinine DL <= 20 mg/L (U) [Mass ratio] 12.3 mg/g 0.0-29.9 [facility] Comment on above: NO MICROALBUMINURIA 0-29 MG/GCLINICAL MICROALBUMINURIA 30-300 MG/GMACROALBUMINURIA >300 MG/G Basophils Auto (Bld) [#/Vol] on 07-18-2024 Basophils (Bld) [#/Vol] Automated basophil count 0.0-0.1 [facility] Basophils/100 WBC Auto (Bld) on 07-18-2024 Basophils/100 WBC (Bld) Automated basophil % 0.2-2.0 [facility] Eosinophils/100 WBC Auto (Bl d)on 07-18-2024 Eosinophils/100 WBC (Bld) Automated eosinophil % 0.9-7.0 [facility] Erythrocyte distribution wid th Auto (RBC) [Ratio]on 07-18-2024 Erythrocyte distribution width (RBC) [Ratio] Erythrocyte distribution width [Ratio] by Automated count 11.0-15.0 [facility] Hematocrit Auto (Bld) [Volum e fraction]on 07-18-2024 Hematocrit (Bld) [Volume fraction] Hematocrit [Volume Fraction] of Blood by Automated count Low 36.0-48.0 [facility] Hemoglobin [Mass/volume] in Bloodon 07-18-2024 Hemoglobin (Bld) [Mass/Vol] Hemoglobin [Mass/volume] in Blood Low 12.0-16.0 [facility] Laboratory - Hematology and Cell countson 07-18-2024 Immature granulocytes/100 WBC (Bld) 0.6 % High 0.0-0.5 [facility] Leukocytes [#/volume] correc chip for nucleated erythrocytes in Blood by Automated counon 07-18-2024 WBC corrected for nucl RBC Auto (Bld) [#/Vol] Leukocytes [#/volume] corrected for nucleated erythrocytes in Blood by Automated coun 4.0-11.0 [facility] Lymphocytes Auto (Bld) [#/Vo l]on 07-18-2024 Lymphocytes (Bld) [#/Vol] Lymphocytes [#/volume] in Blood by Automated count 1.2-3.8 [facility] Lymphocytes/100 WBC Auto (Bl d)on 07-18-2024 Lymphocytes/100 WBC (Bld) Lymphocytes/100 leukocytes in Blood by Automated count 20.5-60.0 [facility] MCH Auto (RBC) [Entitic mass ]on 07-18-2024 MCH (RBC) [Entitic mass] MCH [Entitic mass] by Automated count 26.7-34.0 [facility] MCHC Auto (RBC) [Mass/Vol]on 07-18-2024 MCHC (RBC) [Mass/Vol] MCHC [Mass/volume] by Automated count 29.9-35.2 [facility] MCV Auto (RBC) [Entitic vol] on 07-18-2024 MCV (RBC) [Entitic vol] MCV [Entitic volume] by Automated count 81.0-99.0 [facility] Monocytes Auto (Bld) [#/Vol] on 07-18-2024 Monocytes (Bld) [#/Vol] Automated blood monocyte count 0.3-0.8 [facility] Monocytes/100 WBC Auto (Bld) on 07-18-2024 Monocytes/100 WBC (Bld) Automated monocyte % 1.7-12.0 [facility] Neutrophils Auto (Bld) [#/Vo l]on 07-18-2024 Neutrophils (Bld) [#/Vol] Neutrophils [#/volume] in Blood by Automated count 1.4-6.5 [facility] Neutrophils/100 WBC Auto (Bl d)on 07-18-2024 Neutrophils/100 WBC (Bld) Automated neutrophil % 43.0-75.0 [facility] No Panel Informationon 07-18 Eosinophils # (Auto) 0.3 10 3/uL 0.0-0.7 [facility] Immature Granulocyte # (Auto) 0.03 10 3/uL 0.00-0.03 [facility] Platelet mean volume Auto (B ld) [Entitic vol]on 07-18-2024 Platelet mean volume (Bld) [Entitic vol] Platelet mean volume [Entitic volume] in Blood by Automated count Low 9.5-13.5 [facility] Platelets Auto (Bld) [#/Vol] on 07-18-2024 Platelets (Bld) [#/Vol] Platelets [#/volume] in Blood by Automated count 150-450 [facility] RBC Auto (Bld) [#/Vol]on RBC (Bld) [#/Vol] Erythrocytes [#/volume] in Blood by Automated count Low 4.20-5.40 [facility] Basophils Auto (Bld) [#/Vol] on 07-12-2024 Basophils (Bld) [#/Vol] Automated basophil count 0.0-0.1 [facility] Basophils/100 WBC Auto (Bld) on 07-12-2024 Basophils/100 WBC (Bld) Automated basophil % 0.2-2.0 [facility] Eosinophils/100 WBC Auto (Bl d)on 07-12-2024 Eosinophils/100 WBC (Bld) Automated eosinophil % 0.9-7.0 [facility] Erythrocyte distribution wid th Auto (RBC) [Ratio]on 07-12-2024 Erythrocyte distribution width (RBC) [Ratio] Erythrocyte distribution width [Ratio] by Automated count 11.0-15.0 [facility] Estimated glomerular filtrat ion rate (GFR) non- Americanon 07-12-2024 GFR/1.73 sq M.predicted among non-blacks MDRD (S/P/Bld) [Vol rate/Area] Estimated glomerular filtration rate (GFR) non- Low >=60 mL/min/1.73 m 2 [facility] Hematocrit Auto (Bld) [Volum e fraction]on 07-12-2024 Hematocrit (Bld) [Volume fraction] Hematocrit [Volume Fraction] of Blood by Automated count Low 36.0-48.0 [facility] Hemoglobin [Mass/volume] in Bloodon 07-12-2024 Hemoglobin (Bld) [Mass/Vol] Hemoglobin [Mass/volume] in Blood Low 12.0-16.0 [facility] Laboratory - Chemistry and C hemistry - challengeon 07-12-2024 Calcium [Mass/Vol] 8.6 mg/dL 8.5-10.1 [facility] Chloride [Moles/Vol] 102 mmol/L 98-107 [facility] CO2 [Moles/Vol] 24.7 mmol/L 21.0-32.0 [facility] Creatinine [Mass/Vol] 1.94 mg/dL High 0.55-1.02 [facility] GFR/1.73 sq M.predicted MDRD (S/P/Bld) [Vol rate/Area] 31 mL/min/{1.73_m2} Low >=60 mL/min/1.73 m 2 [facility] Glucose [Mass/Vol] 203 mg/dL High 74-106 [facility] Potassium [Moles/Vol] 4.6 mmol/L 3.5-5.1 [facility] Sodium [Moles/Vol] 137 mmol/L 136-145 [facility] Urea nitrogen [Mass/Vol] 24.0 mg/dL High 7.0-18.0 [facility] Urea nitrogen/Creatinine [Mass ratio] 12.4 mg/mg [facility] - Hematology and Cell countson 07-12-2024 Immature granulocytes/100 WBC (Bld) 1.8 % High 0.0-0.5 [facility] Leukocytes [#/volume] correc chip for nucleated erythrocytes in Blood by Automated counon 07-12-2024 WBC corrected for nucl RBC Auto (Bld) [#/Vol] Leukocytes [#/volume] corrected for nucleated erythrocytes in Blood by Automated coun 4.0-11.0 [facility] Lymphocytes Auto (Bld) [#/Vo l]on 07-12-2024 Lymphocytes (Bld) [#/Vol] Lymphocytes [#/volume] in Blood by Automated count 1.2-3.8 [facility] Lymphocytes/100 WBC Auto (Bl d)on 07-12-2024 Lymphocytes/100 WBC (Bld) Lymphocytes/100 leukocytes in Blood by Automated count 20.5-60.0 [facility] MCH Auto (RBC) [Entitic mass ]on 07-12-2024 MCH (RBC) [Entitic mass] MCH [Entitic mass] by Automated count 26.7-34.0 [facility] MCHC Auto (RBC) [Mass/Vol]on 07-12-2024 MCHC (RBC) [Mass/Vol] MCHC [Mass/volume] by Automated count 29.9-35.2 [facility] MCV Auto (RBC) [Entitic vol] on 07-12-2024 MCV (RBC) [Entitic vol] MCV [Entitic volume] by Automated count 81.0-99.0 [facility] Monocytes Auto (Bld) [#/Vol] on 07-12-2024 Monocytes (Bld) [#/Vol] Automated blood monocyte count 0.3-0.8 [facility] Monocytes/100 WBC Auto (Bld) on 07-12-2024 Monocytes/100 WBC (Bld) Automated monocyte % 1.7-12.0 [facility] Neutrophils Auto (Bld) [#/Vo l]on 07-12-2024 Neutrophils (Bld) [#/Vol] Neutrophils [#/volume] in Blood by Automated count 1.4-6.5 [facility] Neutrophils/100 WBC Auto (Bl d)on 07-12-2024 Neutrophils/100 WBC (Bld) Automated neutrophil % 43.0-75.0 [facility] No Panel Informationon 07-12 Eosinophils # (Auto) 0.2 10 3/uL 0.0-0.7 [facility] Immature Granulocyte # (Auto) 0.13 10 3/uL High 0.00-0.03 [facility] Platelet mean volume Auto (B ld) [Entitic vol]on 07-12-2024 Platelet mean volume (Bld) [Entitic vol] Platelet mean volume [Entitic volume] in Blood by Automated count 9.5-13.5 [facility] Platelets Auto (Bld) [#/Vol] on 07-12-2024 Platelets (Bld) [#/Vol] Platelets [#/volume] in Blood by Automated count 150-450 [facility] RBC Auto (Bld) [#/Vol]on RBC (Bld) [#/Vol] Erythrocytes [#/volume] in Blood by Automated count Low 4.20-5.40 [facility] Serum or plasma anion gap de terminationon 07-12-2024 Anion gap [Moles/Vol] Serum or plasma an ion gap determination [facility] ANION GAPon 07-11-2024 Anion gap [Moles/Vol] 10.0 mmol/L Normal 8.0-16.0 [facility] Comment on above: Result Comment: ANIO N GAP = Sodium -(Chloride + CO2) Performed By: #### P OCGL #### [facility] [address] [place] [address] Anion Gapon 07-11-2024 Anion gap [Moles/Vol] 10 mmol/L 8.0 - 16.0 meq/L [facility] Comment on above: ANION GAP = Sodium - (Chloride + CO2) Performed at [facility] [address] [place] [address] BASIC METABOL PANELon 2024 Calcium [Mass/Vol] 8.9 mg/dL Normal 8.8-10.2 [facility] Comment on above: Performed By: #### P OCGL #### [facility] [address] [place] [address] CO2 [Moles/Vol] 22 mmol/L Normal 22-29 [facility] Comment on above: Performed By: #### P OCGL #### [facility] [address] [place] [address] Creatinine [Mass/Vol] 1.0 mg/dL High 0.5-0.9 [facility] Comment on above: Performed By: #### P OCGL #### [facility] [address] [place] [address]254 Glucose [Mass/Vol] 166 mg/dL High 74-109 [facility] Comment on above: Performed By: #### P OCGL #### [employer] [address] [place] [address] Urea nitrogen [Mass/Vol] 16 mg/dL Normal 8-23 [facility] Comment on above: Performed By: #### P OCGL #### [address] [address] Chloride [Moles/Vol] 103 mmol/L Normal 98-111 [facility] Comment on above: Performed By: #### P OCGL #### [address] [address] Potassium [Moles/Vol] 4.7 mmol/L Normal 3.5-5.2 [facility] Comment on above: Result Comment: Low level specimen hemolysis is present as indicated by the interference index on the Yamilet analyzer. ??The reported K+ level may be falsely increased. If clinically warranted, recollection of the specimen is suggested. Performed By: #### P OCGL #### [address] [address] Sodium [Moles/Vol] 135 mmol/L Normal 135-145 [facility] Comment on above: Performed By: #### P OCGL #### [address] [address] Basic metabolic 2000 panelon 07-11-2024 Calcium [Mass/Vol] 8.9 mg/dL 8.8 - 10. 2 mg/dL [facility] Comment on above: Performed at [facility] [address] [place] [address] Chloride [Moles/Vol] 103 mmol/L 98 - 11 1 meq/L [facility] CO2 [Moles/Vol] 22 mmol/L 22 - 29 meq/L [facility] Creatinine [Mass/Vol] 1.0 mg/dL High 0.5 - 0.9 mg/dL [facility] Glucose [Mass/Vol] 166 mg/dL High 74 - 109 mg/dL [facility] Interpretation and review of laboratory results Abnormal [facility] [employer] Potassium [Moles/Vol] 4.7 mmol/L 3.5 - 5.2 meq/L [facility] Comment on above: Low level specimen h emolysis is present as indicated by the interference index on the Yamilet analyzer. The reported K+ level may be falsely increased. If clinically warranted, recollection of the specimen is suggested. Sodium [Moles/Vol] 135 mmol/L 135 - 145 meq/L [facility] Urea nitrogen [Mass/Vol] 16 mg/dL 8 - 23 mg/dL [facility] GFR, ESTIMATEDon 07-11-2024 GFR/1.73 sq M.predicted MDRD (S/P/Bld) [Vol rate/Area] 62 mL/min/{1.73_m2} Normal >60 [facility] Comment on above: Pediatric calculator link [...] that affects renal tubular secretion. Performed [place] [address] Result Comment: Pedi atric calculator link https://www.kidney.org/professionals/kdoqi/gfr_calculatorped [...] secretion. Performed By: #### P OCGL #### [employer] [address] [place] [address] GLUCOSE POCon 07-11-2024 Glucose [Mass/Vol] 177 mg/dL High 70-108 [facility] Comment on above: Performed at [facility] [address] [place] [address] Performed By: #### P OCGL #### [employer] [address] [place], [place] [id number] Glucose Auto test strip (Bld ) [Mass/Vol]on 07-11-2024 Interpretation and review of laboratory results Abnormal [facility] HGB,HCTon 07-11-2024 Hematocrit (Bld) [Volume fraction] 33.4 % Low 37.0-47.0 [facility] Comment on above: Performed at [facility] [address] [place] [address] Performed By: #### P OCGL #### [facility] [address] [place] [address] Hemoglobin (Bld) [Mass/Vol] 10.8 g/dL Low 12.0-16.0 [facility] Comment on above: Performed By: #### P OCGL #### [facility] [address] [place] [address] Hemoglobin and Hematocrit pa bhavna (Bld)on 07-11-2024 Interpretation and review of laboratory results Abnormal [facility] No Panel Informationon 07-11 [facility] ANION GAPon 07-10-2024 Anion gap [Moles/Vol] 8.0 mmol/L Normal 8.0-16.0 [facility] Comment on above: Result Comment: ANIO N GAP = Sodium -(Chloride + CO2) Performed By: #### P OCGL #### [facility] [place] [address] Anion Gapon 07-10-2024 Anion gap [Moles/Vol] 8 mmol/L 8.0 - 16.0 meq/L [facility] Comment on above: ANION GAP = Sodium - (Chloride + CO2) Performed at [employer] [facility] [address] [place] [address] BASIC METABOL PANELon 2024 Calcium [Mass/Vol] 8.8 mg/dL Normal 8.8-10.2 [facility] Comment on above: Performed By: #### P OCGL #### [employer] [address] [place] [address] CO2 [Moles/Vol] 26 mmol/L Normal 22-29 [facility] Comment on above: Performed By: #### P OCGL #### [facility] [address] [place] [address] Creatinine [Mass/Vol] 1.1 mg/dL High 0.5-0.9 [facility] Comment on above: Performed By: #### P OCGL #### [facility] [address] [place] [address] Glucose [Mass/Vol] 198 mg/dL High 74-109 [facility] Comment on above: Performed By: #### P OCGL #### [facility] [address] [place] [address] Urea nitrogen [Mass/Vol] 24 mg/dL High 8-23 [facility] Comment on above: Performed By: #### P OCGL #### [facility] [address] [place] [address] Chloride [Moles/Vol] 101 mmol/L Normal 98-111 [facility] Comment on above: Performed By: #### P OCGL #### [facility] [address] [place] [address] Potassium [Moles/Vol] 4.6 mmol/L Normal 3.5-5.2 [facility] Comment on above: Performed By: #### P OCGL #### [facility] [address] [place] [address] Sodium [Moles/Vol] 135 mmol/L Normal 135-145 [facility] Comment on above: Performed By: #### P OCGL #### [facility] [address] [place] [address] Basic metabolic 2000 panelon 07-10-2024 Calcium [Mass/Vol] 8.8 mg/dL 8.8 - 10. 2 mg/dL [facility] Comment on above: Performed at [facility] [address] [place] [address] Chloride [Moles/Vol] 101 mmol/L 98 - 11 1 meq/L [facility] [employer] CO2 [Moles/Vol] 26 mmol/L 22 - 29 meq/L [facility] Creatinine [Mass/Vol] 1.1 mg/dL High 0.5 - 0.9 mg/dL [facility] Glucose [Mass/Vol] 198 mg/dL High 74 - 109 mg/dL [facility] [employer] Potassium [Moles/Vol] 4.6 mmol/L 3.5 - 5.2 meq/L [facility] [employer] Sodium [Moles/Vol] 135 mmol/L 135 - 145 meq/L [facility] [employer] Urea nitrogen [Mass/Vol] 24 mg/dL High 8 - 23 mg/dL [facility] GFR, ESTIMATEDon 07-10-2024 GFR/1.73 sq M.predicted MDRD (S/P/Bld) [Vol rate/Area] 56 mL/min/{1.73_m2} Abnormal >60 [facility] Comment on above: Pediatric calculator link https://www.kidney.org/professionals/kdoqi/gfr_calculatorped [...] that affects renal tubular secretion. Performed [place] [address] Result Comment: Pedi atric calculator link https://www.kidney.org/professionals/kdoqi/gfr_calculatorped [...] secretion. Performed By: #### P OCGL #### [employer] [address] [place] [address] GLUCOSE POCon 07-10-2024 Glucose [Mass/Vol] 267 mg/dL High 70-[address] [facility] [employer] Comment on above: Performed at [facility] [address] [place] [address] Performed By: #### P OCGL #### [employer] [address] [place] [address] Glucose [Mass/Vol] 154 mg/dL High 70-108 [facility] Comment on above: Performed at [facility] [address] [place] [address] Performed By: #### P OCGL #### [facility] [address] [place] [address] Glucose [Mass/Vol] 302 mg/dL High 70-108 [facility] Comment on above: Performed at [facility] [address] [place] [address] Performed By: #### P OCGL #### [facility] [address] [place] [address] Glucose [Mass/Vol] 205 mg/dL High 70-108 [facility] Comment on above: Performed at [facility] [address] [place] [address] Performed By: #### P OCGL #### [address] [address] Glucose Auto test strip (Bld ) [Mass/Vol]on [...] [facility] Comment on above: Performed at [facility] [address] [place] [address] Performed By: #### P OCGL #### [facility] [address] [place] [address] Hemoglobin (Bld) [Mass/Vol] 10.0 g/dL Low 12.0-16.0 [facility] Comment on above: Performed By: #### P OCGL #### [facility] [address] [place] [address] Hemoglobin and Hematocrit pa bhavna (Bld)on 07-10-2024 Hemoglobin (Bld) [Mass/Vol] 10 g/dL Low [facility] Interpretation and review of laboratory results Abnormal [facility] No Panel Informationon 07-10 Interpretation and review of laboratory results Abnormal [facility] ANION GAPon 07-09-2024 Anion gap [Moles/Vol] 10.0 mmol/L Normal 8.0-16.0 [facility] Comment on above: Result Comment: ANIO N GAP = Sodium -(Chloride + CO2) Performed By: #### P OCGL #### [facility] [address] [place] [address] Anion Gapon 07-09-2024 Anion gap [Moles/Vol] 10 mmol/L 8.0 - 16.0 meq/L [facility] Comment on above: ANION GAP = Sodium - (Chloride + CO2) Performed at [facility] [address] [place] [address] BASIC METABOL PANELon 2024 Calcium [Mass/Vol] 8.3 mg/dL Low 8.8-10.2 [facility] Comment on above: Performed By: #### P OCGL #### [address] [address] CO2 [Moles/Vol] 23 mmol/L Normal 22-29 [facility] Comment on above: Performed By: #### P OCGL #### [facility] [address] [place] [address] Creatinine [Mass/Vol] 1.1 mg/dL High 0.5-0.9 [facility] Comment on above: Performed By: #### P OCGL #### [facility] [address] [place] [address] Glucose [Mass/Vol] 197 mg/dL High 74-109 [facility] Comment on above: Performed By: #### P OCGL #### [facility] [address] [place] [address] Urea nitrogen [Mass/Vol] 21 mg/dL Normal 8-23 [facility] Comment on above: Performed By: #### P OCGL #### [facility] [address] [place] [address] Chloride [Moles/Vol] 103 mmol/L Normal 98-111 [facility] Comment on above: Performed By: #### P OCGL #### [facility] [address] [place] [address] Potassium [Moles/Vol] 5.8 mmol/L High 3.5-5.2 [facility] Comment on above: Performed By: #### P OCGL #### [facility] [address] [place] [address] Sodium [Moles/Vol] 136 mmol/L Normal 135-145 [facility] Comment on above: Performed By: #### P OCGL #### [facility] [address] [place] [address] Basic metabolic 2000 panelon 07-09-2024 Calcium [Mass/Vol] 8.3 mg/dL Low 8.8 - 10. 2 mg/dL [employer] Comment on above: Performed at [facility] [address] [place] [address] Chloride [Moles/Vol] 103 mmol/L 98 - 11 1 meq/L [facility] CO2 [Moles/Vol] 23 mmol/L 22 - 29 meq/L [facility] Creatinine [Mass/Vol] 1.1 mg/dL High 0.5 - 0.9 mg/dL [facility] Glucose [Mass/Vol] 197 mg/dL High 74 - 109 mg/dL [facility] Potassium [Moles/Vol] 5.8 mmol/L High 3.5 - 5.2 meq/L [facility] Sodium [Moles/Vol] 136 mmol/L 135 - 145 meq/L [facility] Urea nitrogen [Mass/Vol] 21 mg/dL 8 - 23 mg/dL [facility] GFR, ESTIMATEDon 07-09-2024 GFR/1.73 sq M.predicted MDRD (S/P/Bld) [Vol rate/Area] 56 mL/min/{1.73_m2} Abnormal >60 [employer] Comment on above: Pediatric calculator link https://www.kidney.org/professionals/kdoqi/gfr_calculatorped [...] that affects renal tubular secretion. [place] [address] Result Comment: Soniya atric calculator link https://www.kidney.org/professionals/kdoqi/gfr_calculatorped [...] secretion. Performed By: #### P OCGL #### [facility] [place] [address] GLUCOSE POCon 07-09-2024 Glucose [Mass/Vol] 211 mg/dL High 70-108 [facility] Comment on above: Performed at [facility] [employer] [facility] [address] [place] [address] Performed By: #### P OCGL #### [employer] [place] [address] Glucose [Mass/Vol] 212 mg/dL High 70-108 [facility] Comment on above: Performed at [facility] [facility] [address] [place] [address] Performed By: #### P OCGL #### [employer] [place] [address] Glucose [Mass/Vol] 169 mg/dL High 70-108 [facility] Comment on above: Performed at [facility] [employer] [facility] [address] [place] [address] Performed By: #### P OCGL #### [facility] [place] [address] Glucose [Mass/Vol] 229 mg/dL High 70-108 [facility] Comment on above: Performed at [facility] [employer] [facility] [address] [place] [address] Performed By: #### P OCGL #### [facility] [address] [place] [address] Glucose [Mass/Vol] 203 mg/dL High 70-108 [facility] Comment on above: Performed at [facility] [address] [place] [address] Performed By: #### P OCGL #### [facility] [address] [place] [address] HGB,HCTon 07-09-2024 Hematocrit (Bld) [Volume fraction] 36.7 % Low 37.0-47.0 [facility] Comment on above: Performed at [facility] [address] [place] [address] Performed By: #### P OCGL #### [place] [address] Hemoglobin (Bld) [Mass/Vol] 11.9 g/dL Low 12.0-16.0 [facility] Comment on above: Performed By: #### P OCGL #### [facility] [address] [place] [address] No Panel Informationon 07-09 Interpretation and review of laboratory results Abnormal [facility] POTASSIUMon 07-09-2024 Potassium [Moles/Vol] 4.7 mmol/L Normal 3.5-5.2 [facility] Comment on above: Performed By: #### K P #### [facility] [place] [address] Potassiumon 07-09-2024 Potassium [Moles/Vol] 4.7 mmol/L 3.5 - 5.2 meq/L [facility] Comment on above: Performed at [facility] [address] [place] [address] GLUCOSE POCon 07-08-2024 Glucose [Mass/Vol] 266 mg/dL High 70-108 [facility] Comment on above: Performed at [facility] [address] [place] [address] Performed By: #### P OCGL #### [facility] [address] [place] [address] Glucose [Mass/Vol] 120 mg/dL High 70-108 [facility] Comment on above: Performed at [facility] [address] [place] [address] Performed By: #### P OCGL #### [facility] [address] [place] [address] Glucose [Mass/Vol] 105 mg/dL Normal 70-[address] [facility] Comment on above: Performed at [facility] [address] [place] [address] Performed By: #### P OCGL #### [facility] [address] [place] [address] Glucose [Mass/Vol] 136 mg/dL High 70-[address] [facility] Comment on above: Performed at [facility] [address] [place] [address] Performed By: #### P OCGL #### [facility] [address] [place] [address] Glucose Auto test strip (Bld ) [Mass/Vol]on 07-08-2024 Interpretation and review of laboratory results Abnormal [facility] Interpretation and review of laboratory results Abnormal [facility] Interpretation and review of laboratory results Abnormal [facility] XR LUMBAR SPINE 1 VWon 07-08 [...] Boo Headley MD 07/08/24 Final result Normal [facility] XR Lumbar spine Single viewo n 07-08-2024 1. Evidence of posterior fusion at L4-L5. Please refer to operative report for further details. This report has been created using voice recognition software. It may contain minor errors which are inherent in voice recognition technology. Electronically signed by Dr. Jerrod Betts [facility] Sivakumar Betts MD - 07/08/2024 PROCEDURE: [...] technology. Electronically signed by Dr. Jerrod Betts [facility] Radiology Study observation (narrative) [facility] Intraoperative appearance of the lumbar spine. This report has been created using voice recognition software. It may contain minor errors which are inherent in voice recognition technology. Electronically signed by Dr. Boo Headley [facility] MOBILE LATERAL LUMBA R SPINE: CLINICAL INFORMATION: surgery. L3-L5 decompression. L4-L5- fusion COMPARISON: No prior study. TECHNIQUE: A single lateral mobile view of the lumbar spine was obtained For localization purposes. FINDINGS: 2 spinal needles are present posteriorly directed at the L4 and L5 levels. [facility] Boo Sheth MD - 07/08/2024 MOBILE LATERAL [...] technology. Electronically signed by Dr. Boo Headley [facility] Radiology Study observation (narrative) [facility] XR Lumbar spine Single viewO rdered By: Sivakumar Betts on 07-08-2024 [facility] Work Phone: XR Lumbar spine Single viewO rdered By: Boo Headley on 07-08-2024 [facility] Work Phone: ANION GAPon 07-07-2024 Anion gap [Moles/Vol] 14.0 mmol/L Normal 8.0-16.0 [facility] Comment on above: Result Comment: ANIO N GAP = Sodium -(Chloride + CO2) Performed By: #### B MP, EGFR1, CBCND, ANION #### [facility] [address] [place] [address] Anion Gapon 07-07-2024 Anion gap [Moles/Vol] 14 mmol/L 8.0 - 16.0 meq/L [facility] Comment on above: ANION GAP = Sodium - (Chloride + CO2) Performed at [facility] [address] [place] [address] BASIC METABOL PANELon 2024 CO2 [Moles/Vol] 21 mmol/L Low 22-29 [facility] Comment on above: Performed By: #### B MP, EGFR1, CBCND, ANION #### [facility] [address] [place] [address] Creatinine [Mass/Vol] 1.0 mg/dL High 0.5-0.9 [facility] Comment on above: Performed By: #### B MP, EGFR1, CBCND, ANION #### [facility] [address] [address] Glucose [Mass/Vol] 172 mg/dL High 74-109 [facility] Comment on above: Performed By: #### B MP, EGFR1, CBCND, ANION #### [facility] [address] [place] [address] Urea nitrogen [Mass/Vol] 33 mg/dL High 8-23 [facility] Comment on above: Performed By: #### B MP, EGFR1, CBCND, ANION #### [facility] [address] [place] [address] Calcium [Mass/Vol] 9.2 mg/dL Normal 8.8-10.2 [facility] Comment on above: Performed By: #### B MP, EGFR1, CBCND, ANION #### [facility] [address] [place] [address] Chloride [Moles/Vol] 103 mmol/L Normal 98-111 [facility] Comment on above: Performed By: #### B MP, EGFR1, CBCND, ANION #### [address] [address] Potassium [Moles/Vol] 4.4 mmol/L Normal 3.5-5.2 [facility] Comment on above: Result Comment: Low level specimen hemolysis is present as indicated by the interference index on the Yamilet analyzer. ??The reported K+ level may be falsely increased. If clinically warranted, recollection of the specimen is suggested. Performed By: #### B MP, EGFR1, CBCND, ANION #### [address] [address] Sodium [Moles/Vol] 138 mmol/L Normal 135-145 [facility] Comment on above: Performed By: #### B MP, EGFR1, CBCND, ANION #### [address] [address] Basic metabolic 2000 panelon 07-07-2024 Calcium [Mass/Vol] 9.2 mg/dL 8.8 - 10. 2 mg/dL [facility] Comment on above: Performed at [facility] ion Medical Lab [address] [place] [address] Chloride [Moles/Vol] 103 mmol/L 98 - 11 1 meq/L [facility] CO2 [Moles/Vol] 21 mmol/L Low 22 - 29 meq/L [facility] Creatinine [Mass/Vol] 1.0 mg/dL High 0.5 - 0.9 mg/dL [facility] Glucose [Mass/Vol] 172 mg/dL High 74 - 109 mg/dL [facility] Interpretation and review of laboratory results Abnormal [facility] [employer] Potassium [Moles/Vol] 4.4 mmol/L 3.5 - 5.2 meq/L [facility] Comment on above: Low level specimen h emolysis is present as indicated by the interference index on the Yamilet analyzer. The reported K+ level may be falsely increased. If clinically warranted, recollection of the specimen is suggested. Sodium [Moles/Vol] 138 mmol/L 135 - 145 meq/L [facility] Urea nitrogen [Mass/Vol] 33 mg/dL High 8 - 23 mg/dL [facility] CBCon 07-07-2024 Erythrocyte distribution width (RBC) [Entitic vol] 40.3 fL 35.0 - 45.0 fL [facility] Platelets (Bld) [#/Vol] 236 10*3/uL [facility] RBC (Bld) [#/Vol] 4.73 10*6/uL [facility] WBC (Bld) [#/Vol] 8.6 10*3/uL [facility] Se cours [facility] CBC NO DIFFERENTIALon 2024 Erythrocyte distribution width (RBC) [Ratio] 12.6 % Normal 11.5-14.5 [facility] Comment on above: Performed By: #### B MP, EGFR1, CBCND, ANION #### [employer] [address] [place] [address] Hematocrit (Bld) [Volume fraction] 41.6 % Normal 37.0-47.0 [facility] Comment on above: Performed By: #### B MP, EGFR1, CBCND, ANION #### [employer] [address] [place] [address] Hemoglobin (Bld) [Mass/Vol] 13.5 g/dL Normal 12.0-16.0 [facility] Comment on above: Performed By: #### B MP, EGFR1, CBCND, ANION #### [facility] [address] [place] [address] MCH (RBC) [Entitic mass] 28.5 pg Normal 26.0-33.0 [facility] Comment on above: Performed By: #### B MP, EGFR1, CBCND, ANION #### [employer] [address] [place] [address] MCHC (RBC) [Mass/Vol] 32.5 g/dL Normal 32.2-35.5 [facility] Comment on above: Performed By: #### B MP, EGFR1, CBCND, ANION #### [employer] [address] [place] [address] MCV (RBC) [Entitic vol] 87.9 fL Normal 81.0-99.0 [facility] Comment on above: Performed By: #### B MP, EGFR1, CBCND, ANION #### [place] [address] PLATELET 236 thou/mm3 Normal 130-400 [facility] Comment on above: Performed By: #### B MP, EGFR1, CBCND, ANION #### [facility] [place] [address] Platelet mean volume (Bld) [Entitic vol] 9.6 fL Normal 9.4-12.4 [facility] Comment on above: Performed at [facility] [address] [place] [address] Performed By: #### B MP, EGFR1, CBCND, ANION #### [facility] [place] [address] RBC 4.73 mill/mm3 Normal 4.20-5.40 [facility] Comment on above: Performed By: #### B MP, EGFR1, CBCND, ANION #### [place] [address] RDW-SD 40.3 fL Normal 35.0-45.0 [facility] Comment on above: Performed By: #### B MP, EGFR1, CBCND, ANION #### [place] [address] WBC 8.6 thou/mm3 Normal 4.8-10.8 [facility] Comment on above: Performed By: #### B MP, EGFR1, CBCND, ANION #### [facility] [place] [address] GFR, ESTIMATEDon 07-07-2024 GFR/1.73 sq M.predicted MDRD (S/P/Bld) [Vol rate/Area] 62 mL/min/{1.73_m2} Normal >60 [facility] Comment on above: Pediatric calculator link [...] that affects renal tubular secretion. [place] [address] Result Comment: Soniya hernándezc calculator link https://www.kidney.org/professionals/kdoqi/gfr_calculatorped [...] #### B MP, EGFR1, CBCND, ANION #### [place] [address] GLUCOSE POCon 07-07-2024 Glucose [Mass/Vol] 271 mg/dL High 70-108 [facility] Comment on above: Performed at [facility] [employer] [facility] [address] [place] [address] Performed By: #### P OCGL #### [employer] [place] [address] Glucose [Mass/Vol] 188 mg/dL High 70-108 [facility] Comment on above: Performed at [facility] [employer] [facility] [address] [place] [address] Performed By: #### P OCGL #### [employer] [place] [address] Glucose [Mass/Vol] 174 mg/dL High 70-108 [facility] Comment on above: Performed at [facility] [employer] [facility] [address] [place] [address] Performed By: #### P OCGL #### [place] [address] Glucose [Mass/Vol] 76 mg/dL Normal 70-108 [facility] Comment on above: Performed at [facility] [employer] [facility] [address] [place] [address] Performed By: #### P OCGL #### [facility] [address] [place] [address] Glomerular Filtration Rate, Estimatedon 07-07-2024 [facility] [employer]Roll Glucose Auto test strip (Bld ) [Mass/Vol]on 07-07-2024 Interpretation and review of laboratory results Abnormal [facility] Interpretation and review of laboratory results Abnormal [facility] Interpretation and review of laboratory results Abnormal [facility] No Panel Informationon 07-07 [facility] [employer] XR CHEST (2 VW)on 07-07-2024 XR CHEST [...] Kj Epps MD 07/07/24 Final result Normal [facility] XR Chest 2 Viewson Impression: No acute cardiopulmonary disease. This document has been electronically signed by: Kj Epps MD on 07/07/2024 02:22 AM [facility] Chest X-ray: 2 views . Indication: Pulmonary congestion. Comparison: None Findings: The lungs are well aerated. No focal consolidation, or pleural effusion. The cardiac silhouette is normal in size. Bony thorax is grossly intact. Bilateral shoulder arthroplasty. External metallic density versus surgical hardware projects on the lower cervical spine. [facility] Kj Epps MD - 07/07/2024 Chest [...] Kj Epps MD on 07/07/2024 02:22 AM [facility] Radiology Study observation (narrative) [facility] XR Chest 2 ViewsOrdered By: Kj Epps on 07-07-2024 [facility] ANION GAPon 07-06-2024 Anion gap [Moles/Vol] 14.0 mmol/L Normal 8.0-16.0 [facility] Comment on above: Result Comment: ANIO N GAP = Sodium -(Chloride + CO2) Performed By: #### P OCGL #### [place] [address] APTTon 07-06-2024 aPTT Coag (Bld) [Time] 29.5 s Normal 22.0-38.0 [facility] Comment on above: Result Comment: Ther apeutic Heparin Reference Range= 60-95 seconds (corresponds to 0.3 to 0.7 u/mL Anti-Xa factor activity) Performed By: #### P OCGL #### [place] [address] Anion Gapon 07-06-2024 Anion gap [Moles/Vol] 14 mmol/L 8.0 - 16.0 meq/L [facility] Comment on above: ANION GAP = Sodium - (Chloride + CO2) Performed at [facility] [address] [place] [address] CBC WITH DIFFERENTIALon 06-23 ABS BASOPHILS 0.0 thou/mm3 Normal 0.0-0.1 [facility] Comment on above: Performed By: #### P OCGL #### [facility] [address] [place] [address] ABS EOSINOPHILS 0.0 thou/mm3 Normal 0.0-0.4 [facility] Comment on above: Performed By: #### P OCGL #### [facility] [address] [place] [address] ABS IMMATURE GRANS (IG) 0.05 thou/mm3 Normal 0.00-0.07 [facility] Comment on above: Performed By: #### P OCGL #### [address] [address] ABS LYMPHOCYTES 2.8 thou/mm3 Normal 1.0-4.8 [facility] Comment on above: Performed By: #### P OCGL #### [address] [address] ABS MONOCYTES 0.8 thou/mm3 Normal 0.4-1.3 [facility] Comment on above: Performed By: #### P OCGL #### [address] [address] ABS NEUTROPHILS 7.9 thou/mm3 High 1.8-7.7 [facility] Comment on above: Performed By: #### P OCGL #### [address] [address] Basophils/100 WBC (Bld) 0.2 % Normal [facility] Comment on above: Performed By: #### P OCGL #### [address] [address] Eosinophils/100 WBC (Bld) 0.3 % Normal [facility] Comment on above: Performed By: #### P OCGL #### [address] [address] Erythrocyte distribution width (RBC) [Ratio] 12.5 % Normal 11.5-14.5 [facility] Comment on above: Performed By: #### P OCGL #### [address] [address] Hematocrit (Bld) [Volume fraction] 42.6 % Normal 37.0-47.0 [facility] Comment on above: Performed By: #### P OCGL #### [address] [address] Hemoglobin (Bld) [Mass/Vol] 13.8 g/dL Normal 12.0-16.0 [facility] Comment on above: Performed By: #### P OCGL #### [address] [address] IMMATURE GRANS (IG) 0.4 % Normal [facility] Comment on above: Performed By: #### P OCGL #### [address] [address] Lymphocytes/100 WBC (Bld) 24.0 % Normal [facility] Comment on above: Performed By: #### P OCGL #### [address] [address] MCH (RBC) [Entitic mass] 28.6 pg Normal 26.0-33.0 [facility] Comment on above: Performed By: #### P OCGL #### [address] [address] MCHC (RBC) [Mass/Vol] 32.4 g/dL Normal 32.2-35.5 [facility] Comment on above: Performed By: #### P OCGL #### [address] [address] MCV (RBC) [Entitic vol] 88.2 fL Normal 81.0-99.0 [facility] Comment on above: Performed By: #### P OCGL #### [address] [address] Monocytes/100 WBC (Bld) 6.8 % Normal [facility] Comment on above: Performed By: #### P OCGL #### [address] [address] Neutrophils/100 WBC (Bld) 68.3 % Normal [facility] Comment on above: Performed By: #### P OCGL #### [address] [address] NRBC 0 /100 wbc Normal [facility] Comment on above: Performed By: #### P OCGL #### [address] [address] PLATELET 274 thou/mm3 Normal 130-400 [facility] Comment on above: Performed By: #### P OCGL #### [address] [address] Platelet mean volume (Bld) [Entitic vol] 9.7 fL Normal 9.4-12.4 [facility] Comment on above: Performed By: #### P OCGL #### [place] [id number] RBC 4.83 mill/mm3 Normal 4.20-5.40 [facility] Comment on above: Performed By: #### P OCGL #### [place] [address] RDW-SD 39.9 fL Normal 35.0-45.0 [facility] Comment on above: Performed By: #### P OCGL #### [facility] [address] [place] [address] WBC 11.6 thou/mm3 High 4.8-10.8 [facility] Comment on above: Performed By: #### P OCGL #### [place] [address] CBC with Auto Differentialon 07-06-2024 Basophils (Bld) [...] [facility] Comment on above: Performed at [facility] [address] [place] [address] Platelets (Bld) [#/Vol] 274 10*3/uL [facility] RBC (Bld) [#/Vol] 4.83 10*6/uL [facility] WBC (Bld) [#/Vol] 11.6 10*3/uL High [facility] COMP. METABOLIC PANELon 06-23 Albumin [Mass/Vol] 4.3 g/dL Normal 3.4-4.9 [facility] Comment on above: Performed By: #### P OCGL #### [facility] [address] [place] [address] ALP [Catalytic activity/Vol] 65 U/L Normal 35-104 [facility] Comment on above: Performed By: #### P OCGL #### [facility] [address] [address] ALT [Catalytic activity/Vol] 24 U/L Normal 10-35 [facility] Comment on above: Performed By: #### P OCGL #### [facility] [address] [place] [address] AST [Catalytic activity/Vol] 23 U/L Normal 10-35 [facility] Comment on above: Performed By: #### P OCGL #### [address] [address] Bilirubin [Mass/Vol] 0.4 mg/dL Normal 0.3-1.2 [facility] Comment on above: Performed By: #### P OCGL #### [address] [address] Calcium [Mass/Vol] 9.6 mg/dL Normal 8.8-10.2 [facility] Comment on above: Performed By: #### P OCGL #### [address] [address] CO2 [Moles/Vol] 26 mmol/L Normal 22-29 [facility] Comment on above: Performed By: #### P OCGL #### [address] [address] Creatinine [Mass/Vol] 1.3 mg/dL High 0.5-0.9 [facility] Comment on above: Performed By: #### P OCGL #### [facility] [address] [place] [address] Glucose [Mass/Vol] 259 mg/dL High 74-109 [facility] Comment on above: Performed By: #### P OCGL #### [facility] [address] [place] [address] Protein [Mass/Vol] 7.2 g/dL Normal 6.4-8.3 [facility] Comment on above: Performed By: #### P OCGL #### [facility] [employer] [address] [address] Urea nitrogen [Mass/Vol] 43 mg/dL High 8-23 [facility] Comment on above: Performed By: #### P OCGL #### [address] [address] Chloride [Moles/Vol] 96 mmol/L Low 98-111 [facility] Comment on above: Performed By: #### P OCGL #### [address] [address] POTASSIUM WITH REFLEX MG 5.0 meq/L Normal 3.5-5.2 [facility] Comment on above: Result Comment: Low level specimen hemolysis is present as indicated by the interference index on the Yamilet analyzer. ??The reported K+ level may be falsely increased. If clinically warranted, recollection of the specimen is suggested. Performed By: #### P OCGL #### [facility] [employer] [address] [address] Sodium [Moles/Vol] 136 mmol/L Normal 135-145 [facility] Comment on above: Performed By: #### P OCGL #### [address] [address] Comprehensive metabolic 2000 panelon 07-06-2024 Albumin BCG dye [Mass/Vol] 4.3 g/dL 3.4 - 4.9 g/dL [email or web address] ALP [Catalytic activity/Vol] 65 U/L 35 - 104 U/L [facility] ALT No additional P-5'-P [Catalytic activity/Vol] 24 U/L 10 - 35 U/L [facility] Comment on above: Performed at [facility] [address] [place] [address] AST [Catalytic activity/Vol] 23 U/L 10 - 35 U/L [facility] Bilirubin [Mass/Vol] 0.4 mg/dL 0.3 - 1 .2 mg/dL [email or web address] Calcium [Mass/Vol] 9.6 mg/dL 8.8 - 10. 2 mg/dL [facility] Chloride [Moles/Vol] 96 mmol/L Low 98 - 11 1 meq/L [facility] CO2 [Moles/Vol] 26 mmol/L 22 - 29 meq/L [facility] Creatinine [Mass/Vol] 1.3 mg/dL High 0.5 - 0.9 mg/dL [facility] Glucose [Mass/Vol] 259 mg/dL High 74 - 109 mg/dL [facility] Potassium [Moles/Vol] 5.0 mmol/L 3.5 - 5.2 meq/L [facility] Comment on above: Low level specimen h emolysis is present as indicated by the interference index on the Yamilet analyzer. The reported K+ level may be falsely increased. If clinically warranted, recollection of the specimen is suggested. Protein [Mass/Vol] 7.2 g/dL 6.4 - 8.3 g/dL [facility] Sodium [Moles/Vol] 136 mmol/L 135 - 145 meq/L [facility] Urea nitrogen [Mass/Vol] 43 mg/dL High 8 - 23 mg/dL [facility] EKG 12 leadOrdered By: Kp Rodriges on 07-06-2024 Atrial Rate 68 BPM [email or web address] Work Phone: P [place] 58 degrees [facility] Work Phone: P-R Interval 146 ms [facility] [employer] Work Phone: Q-T Interval 422 ms [facility] [employer] Work Phone: QRS Duration 82 ms [facility] [employer] Work Phone: QTc Calculation (Bazett) 448 ms [facility] [employer] Work Phone: R [place] 67 degrees [facility] [employer] Work Phone: T [place] 66 degrees [facility] Work Phone: Ventricular Rate 68 BPM [facility] [email or web address] Work Phone: [facility] [employer] Work Phone: EKG 12 leadon 07-06-2024 Normal sinus rhythm Possible Left atrial enlargement ST & T wave abnormality, consider anterior ischemia Abnormal ECG No previous ECGs available Clinical correlation is indicated Confirmed by Kp Rodriges ([id number]) on 07/06/2024 11:10:52 PM DIMITRYWY Kp Us MD - 07/06/2024 Normal sinus rhythm Possible Left atrial enlargement ST & T wave abnormality, consider anterior ischemia Abnormal ECG No previous ECGs available Clinical correlation is indicated Confirmed by Kp Rodriges ([id number]) on 07/06/2024 11:10:52 PM [facility] EKG 12-LEADon 07-06-2024 EKG 12-LEAD 68 68 146 82 [phone] Normal sinus rhythm Possible Left atrial enlargement ST & T wave abnormality, consider anterior ischemia Abnormal ECG No previous ECGs available Clinical correlation is indicated Confirmed by Kp Rodriges ([id number]) on 07/06/2024 11:10:52 PM [email or web address] RetrieveTestByDateTime ?SnlnrqfOM=[id number]&D ate=06-07-2024&Time=20 %3a11%3a37%3a00&TestTy pe=ECG&Site=3&OutputTy pe=PDF&Ext=PDF Normal [facility] GFR, ESTIMATEDon 07-06-2024 GFR/1.73 sq M.predicted MDRD (S/P/Bld) [Vol rate/Area] 46 mL/min/{1.73_m2} Abnormal >60 [facility] Comment on above: Pediatric calculator link [...] that affects renal tubular secretion. Performed at [facility] [address] [place] [address] Result Comment: Pedi atric calculator link https://www.kidney.org/professionals/kdoqi/gfr_calculatorped [...] secretion. Performed By: #### P OCGL #### [employer] [address] [place] [address] GLUCOSE POCon 07-06-2024 Glucose [Mass/Vol] 280 mg/dL High 70-108 [facility] Comment on above: Performed at [facility] [employer] [facility] [address] [place] [address] Performed By: #### P OCGL #### [employer] [address] [place], [place] [id number] Glucose Auto test strip (Bld ) [Mass/Vol]on 07-06-2024 Interpretation and review of laboratory results Abnormal [facility] INR Coag (PPP) [Relative jackie e]on 07-06-2024 [facility] No Panel Informationon 07-06 Interpretation and review of laboratory results Abnormal [facility] PROTHOMBIN TIMEon 07-06-2024 INR Coag (Bld) [Relative time] 1.02 {INR} Normal 0.85-1.13 [facility] Comment on above: Result Comment: ---- -----INDICATION INR Reference Range DVT, PE, AF, AMI, tissue heart valve 2.0 to 3.0 Mechanical prosthetic valves 2.5 to 3.5 Performed By: #### P OCGL #### [employer] [address] [place] [address] Protime-INRon 07-06-2024 INR Coag (PPP) [Relative time] 1.02 {INR} 0.85 - 1.13 [facility] [employer] Comment on above: ---------INDICATION- INR Reference Range DVT, PE, AF, AMI, tissue heart valve 2.0 to 3.0 Mechanical prosthetic valves 2.5 to 3.5 Performed at [facility] [address] [place] [address] aPTT Coag (Bld) [Time]on aPTT Coag (PPP) [Time] 29.5 s Jaylan n [facility] Comment on above: Therapeutic Heparin Reference Range= 60-95 seconds (corresponds to 0.3 to 0.7 u/mL Anti-Xa factor activity) Performed at [facility] [address] [place] [address] Bon [facility] Estimated glomerular filtrat ion rate (GFR) non- Americanon 06-27-2024 GFR/1.73 sq M.predicted among non-blacks MDRD (S/P/Bld) [Vol rate/Area] Estimated glomerular filtration rate (GFR) non- Low >=60 mL/min/1.73 m 2 [facility] - Chemistry and C hemistry - challengeon 06-27-2024 Calcium [Mass/Vol] 9.8 mg/dL 8.5-10.1 [facility] Chloride [Moles/Vol] 101 mmol/L 98-107 [facility] CO2 [Moles/Vol] 28.6 mmol/L 21.0-32.0 [facility] Creatinine [Mass/Vol] 1.41 mg/dL High 0.55-1.02 [facility] GFR/1.73 sq M.predicted MDRD (S/P/Bld) [Vol rate/Area] 45 mL/min/{1.73_m2} Low >=60 mL/min/1.73 m 2 [facility] Glucose [Mass/Vol] 66 mg/dL Low 74-106 [facility] Potassium [Moles/Vol] 5.1 mmol/L 3.5-5.1 [facility] Sodium [Moles/Vol] 139 mmol/L 136-145 [facility] Urea nitrogen [Mass/Vol] 29.0 mg/dL High 7.0-18.0 [facility] Urea nitrogen/Creatinine [Mass ratio] 20.6 mg/mg [facility] Bilirubin Ql (U) LARGE Abnormal NEGATIVE [facility] Glucose (U) [Mass/Vol] Negative NEGATIVE [facility] Ketones Ql (U) TRACE mg/dL Abnormal NEGATIVE [facility] pH (U) 5.5 [pH] 5.0-9.0 [facility] Specific gravity (U) [Rel density] 1.025 1.005-1.025 [facility] Urobilinogen Qn (U) 0.2 {Nela'U}/dL 0.2-1.0 [facility] - Specimen inform ationon 06-27-2024 Appearance (U) CLEAR CLEAR [facility] Color (U) YELLOW YELLOW [facility] - Urinalysison Leukocyte esterase Test strip Ql (U) Negative NEGATIVE [facility] Nitrite Ql (U) Negative NEGATIVE [facility] Protein Ql (U) Negative NEG/TRACE [facility] No Panel Informationon 06-27 Urine Microscopic Review NO [facility] Urine Occult Blood Negative NEGATIVE [facility] Serum or plasma anion gap de terminationon 06-27-2024 Anion gap [Moles/Vol] Serum or plasma an ion gap determination [facility] No Panel Informationon 06-01 Miscellaneous Test COMMENT . [facility] Comment on above: Test Ordered: [id number] Aerobic Cult, Extended IncubAerobic Cult, Extended Incub [...] STrimethoprim/Sulfa SVancomycin SPerformed at: CB - [facility] [address] [id number] Director: Noam Haskins PhD, Phone: [phone] Basophils Auto (Bld) [#/Vol] on 05-31-2024 Basophils (Bld) [#/Vol] Automated basophil count 0.0-0.1 [facility] Basophils/100 WBC Auto (Bld) on 05-31-2024 Basophils/100 WBC (Bld) Automated basophil % 0.2-2.0 [facility] Eosinophils/100 WBC Auto (Bl d)on 05-31-2024 Eosinophils/100 WBC (Bld) Automated eosinophil % 0.9-7.0 [facility] Erythrocyte distribution wid th Auto (RBC) [Ratio]on 05-31-2024 Erythrocyte distribution width (RBC) [Ratio] Erythrocyte distribution width [Ratio] by Automated count 11.0-15.0 [facility] Hematocrit Auto (Bld) [Volum e fraction]on 05-31-2024 Hematocrit (Bld) [Volume fraction] Hematocrit [Volume Fraction] of Blood by Automated count 36.0-48.0 [facility] Hemoglobin [Mass/volume] in Bloodon 05-31-2024 Hemoglobin (Bld) [Mass/Vol] Hemoglobin [Mass/volume] in Blood 12.0-16.0 [facility] - Hematology and Cell countson 05-31-2024 ESR (Bld) [Velocity] 7 mm/h <=30 [facility] Immature granulocytes/100 WBC (Bld) 0.2 % 0.0-0.5 [facility] Leukocytes [#/volume] correc chip for nucleated erythrocytes in Blood by Automated counon 05-31-2024 WBC corrected for nucl RBC Auto (Bld) [#/Vol] Leukocytes [#/volume] corrected for nucleated erythrocytes in Blood by Automated coun 4.0-11.0 [facility] Lymphocytes Auto (Bld) [#/Vo l]on 05-31-2024 Lymphocytes (Bld) [#/Vol] Lymphocytes [#/volume] in Blood by Automated count 1.2-3.8 [facility] Lymphocytes/100 WBC Auto (Bl d)on 05-31-2024 Lymphocytes/100 WBC (Bld) Lymphocytes/100 leukocytes in Blood by Automated count 20.5-60.0 [facility] MCH Auto (RBC) [Entitic mass ]on 05-31-2024 MCH (RBC) [Entitic mass] MCH [Entitic mass] by Automated count 26.7-34.0 [facility] MCHC Auto (RBC) [Mass/Vol]on 05-31-2024 MCHC (RBC) [Mass/Vol] MCHC [Mass/volume] by Automated count 29.9-35.2 [facility] MCV Auto (RBC) [Entitic vol] on 05-31-2024 MCV (RBC) [Entitic vol] MCV [Entitic volume] by Automated count 81.0-99.0 [facility] Monocytes Auto (Bld) [#/Vol] on 05-31-2024 Monocytes (Bld) [#/Vol] Automated blood monocyte count 0.3-0.8 [facility] Monocytes/100 WBC Auto (Bld) on 05-31-2024 Monocytes/100 WBC (Bld) Automated monocyte % 1.7-12.0 [facility] Neutrophils Auto (Bld) [#/Vo l]on 05-31-2024 Neutrophils (Bld) [#/Vol] Neutrophils [#/volume] in Blood by Automated count 1.4-6.5 [facility] Neutrophils/100 WBC Auto (Bl d)on 05-31-2024 Neutrophils/100 WBC (Bld) Automated neutrophil % 43.0-75.0 [facility] No Panel Informationon 05-31 C-Reactive Protein, Quantitative <0.50 mg/dL <=0.50 [facility] Eosinophils # (Auto) 0.1 10 3/uL 0.0-0.7 [facility] Immature Granulocyte # (Auto) 0.01 10 3/uL 0.00-0.03 [facility] Platelet mean volume Auto (B ld) [Entitic vol]on 05-31-2024 Platelet mean volume (Bld) [Entitic vol] Platelet mean volume [Entitic volume] in Blood by Automated count Low 9.5-13.5 [facility] Platelets Auto (Bld) [#/Vol] on 05-31-2024 Platelets (Bld) [#/Vol] Platelets [#/volume] in Blood by Automated count 150-450 [facility] RBC Auto (Bld) [#/Vol]on RBC (Bld) [#/Vol] Erythrocytes [#/volume] in Blood by Automated count 4.20-5.40 [facility] Basophils Auto (Bld) [#/Vol] on 12-27-2023 Basophils (Bld) [#/Vol] 0.1 10 3/uL 0.0-0.1 [facility] Basophils/100 WBC Auto (Bld) on 12-27-2023 Basophils/100 WBC (Bld) 1.0 % 0.2-2.0 [facility] Cholesterol in LDL Calc [Mas s/Vol]on 12-27-2023 Cholesterol in LDL [Mass/Vol] 63.0 mg/dL [facility] Comment on above: <100 mg/dl [id number] 0-129 mg/dl NEAR OR ABOVE [id number] mg/dl BORDERLINE [id number] mg/dl HIGH>190 mg/dl VERY HIGH Cholesterol in [...] challengeon 12-27-2023 Albumin [Mass/Vol] 3.7 g/dL 3.4-5.0 [facility] ALP [Catalytic activity/Vol] 61 U/L 46-116 [facility] ALT [Catalytic activity/Vol] 36 U/L 14-59 [facility] AST [Catalytic activity/Vol] 24 U/L 15-37 [facility] Bilirubin [Mass/Vol] 0.6 mg/dL 0.2-1.0 [facility] Calcium [Mass/Vol] 9.2 mg/dL 8.5-10.1 [facility] Chloride [Moles/Vol] 101 mmol/L 98-107 [facility] Cholesterol [Mass/Vol] 146 mg/dL <=200 [facility] Cholesterol in HDL [Mass/Vol] 38 mg/dL Low 40-60 [facility] Comment on above: > or =60 mg/dl - LOW CARDIOVASCULAR RISK<40 mg/dl - HIGH CARDIOVASCULAR RISK CO2 [Moles/Vol] 26.8 mmol/L 21.0-32.0 [facility] Creatinine [Mass/Vol] 1.17 mg/dL High 0.55-1.02 [facility] GFR/1.73 sq M.predicted MDRD (S/P/Bld) [Vol rate/Area] 56 mL/min/{1.73_m2} Low >=60 [facility] Glucose [Mass/Vol] 138 mg/dL High 74-106 [facility] Potassium [Moles/Vol] 4.5 mmol/L 3.5-5.1 [facility] Protein [Mass/Vol] 6.9 g/dL 6.4-8.2 [facility] Sodium [Moles/Vol] 138 mmol/L 136-145 [facility] Triglyceride [Mass/Vol] 229 mg/dL High <=150 [facility] [...] 12-27-2023 MCHC (RBC) [Mass/Vol] 32.5 g/dL 29.9-35.2 [facility] MCV Auto (RBC) [Entitic vol] on [...] Eosinophils # (Auto) 0.4 10 3/uL 0.0-0.7 [facility] Immature Granulocyte # (Auto) 0.02 10 3/uL 0.00-0.03 [facility] Platelet mean volume Auto (B ld) [Entitic vol]on 12-27-2023 Platelet mean volume (Bld) [Entitic vol] 9.6 fL 9.5-13.5 [facility] Platelets Auto (Bld) [#/Vol] on 12-27-2023 Platelets (Bld) [#/Vol] 190 10 3/uL 150-450 [facility] RBC Auto (Bld) [#/Vol]on RBC (Bld) [#/Vol] 4.52 10 6/uL 4.20-5.[address] [facility] Serum or plasma albumin/glob ulin mass ratioon 12-27-2023 Albumin/Globulin [Mass ratio] 1.2 {ratio} [facility] Serum or plasma anion gap de terminationon 12-27-2023 Anion gap [Moles/Vol] 14.7 mmol/L [facility] Serum or plasma total choles terol/high density [...] BERNY QUISPE Date: 2022-08-24 07:19 Normal [facility] CBC AUTO DIFFon 03-30-2022 BASO # 0.0 103/ul Normal 0.0-0.1 [facility] Comment on above: Performed By: #### C BC #### [facility] [address] [address] [address] Rc Foster Basophils/100 WBC (Bld) 0.4 % Normal 0.2-2.0 [facility] Comment on above: Performed By: #### C BC #### [facility] [address] [place] [address] Dr. Rc Foster EO # 0.3 103/ul Normal 0.0-0.7 [facility] Comment on above: Performed By: #### C BC #### [facility] [address] [place] [address] Dr. Rc Foster Eosinophils/100 WBC (Bld) 4.9 % Normal 0.9-7.0 [facility] Comment on above: Performed By: #### C BC #### [facility] [address] [place] [address] Dr. Rc Foster Erythrocyte distribution width (RBC) [Ratio] 12.2 % Normal 11.0-15.0 [facility] Comment on above: Performed By: #### C BC #### [facility] [address] [place] [address] Dr. Rc Foster Hematocrit (Bld) [Volume fraction] 39.8 % Normal 36.0-48.0 [facility] Comment on above: Performed By: #### C BC #### [facility] [address] [place] [address] Dr. Rc Foster Hemoglobin (Bld) [Mass/Vol] 13.1 g/dL Normal 12.0-16.0 [facility] Comment on above: Performed By: #### C BC #### [facility] [address] [place] [address] Dr. Rc Foster IG # 0.02 10e3/ul Normal 0.00-0.03 [facility] Comment on above: Performed By: #### C BC #### [facility] [address] [place] [address] Dr. Rc Foster IG % 0.4 % Normal 0.0-0.5 [facility] Comment on above: Performed By: #### C BC #### [facility] [address] [place] [address] Dr. Rc Foster LYMPH # 2.1 103/ul Normal 1.2-3.8 [facility] Comment on above: Performed By: #### C BC #### [facility] [address] [place] [address] Dr. Rc Foster Lymphocytes/100 WBC (Bld) 37.1 % Normal 20.5-60.0 [facility] Comment on above: Performed By: #### C BC #### [facility] [address] [place] [address] Dr. Rc Foster MANUAL DIFF REQ NO Normal [facility] Comment on above: Performed By: #### C BC #### [facility] [address] [place] [address] Dr. Rc Foster MCH (RBC) [Entitic mass] 28.7 pg Normal 26.7-34.0 [facility] Comment on above: Performed By: #### C BC #### [facility] [address] [place] [address] Dr. Rc Foster MCHC (RBC) [Mass/Vol] 32.9 g/dL Normal 29.9-35.2 [facility] Comment on above: Performed By: #### C BC #### [facility] [address] [place] [address] Dr. cR Foster MCV (RBC) [Entitic vol] 87.1 fL Normal 81.0-99.0 [facility] Comment on above: Performed By: #### C BC #### [facility] [address] [place] [address] Dr. Rc Foster MONO # 0.4 103/ul Normal 0.3-0.8 [facility] Comment on above: Performed By: #### C BC #### [facility] [address] [place] [address] Dr. Rc Foster Monocytes/100 WBC (Bld) 6.7 % Normal 1.7-12.0 [facility] Comment on above: Performed By: #### C BC #### [facility] [address] [place] [address] Dr. Rc Foster NEUT # 2.9 103/ul Normal 1.4-6.5 [facility] Comment on above: Performed By: #### C BC #### [facility] [address] [place] [address] Dr. Rc Foster Neutrophils/100 WBC (Bld) 50.5 % Normal 43.0-75.0 [facility] Comment on above: Performed By: #### C BC #### [facility] [address] [place] [address] Dr. Rc Foster Platelet mean volume (Bld) [Entitic vol] 9.7 fL Normal 9.5-13.5 [facility] Comment on above: Performed By: #### C BC #### [facility] [address] [place] [address] Dr. Rc Foster PLT 189 103/ul Normal 150-450 [facility] Comment on above: Performed By: #### C BC #### [facility] [address] [place] [address] Dr. Rc Foster RBC 4.57 106/ul Normal 4.20-5.40 [facility] Comment on above: Performed By: #### C BC #### [facility] [address] [place] [address] Dr. Rc Foster WBC 5.7 103/ul Normal 4.0-11.0 [facility] Comment on above: Performed By: #### C BC #### [facility] [address] [place] [address] Dr. Rc Foster GLYCOHEMOGLOBIN A1Con 2021 ADA RECOMMENDATION SEE BELOW Normal [facility] Comment on above: Result Comment: ADA RECOMMENDED LIMIT 4.0 - 6.0 ADA THERAPEUTIC TARGET < 7.0 ACTION SUGGESTED > 7.0 Performed By: #### A 1C #### [facility] [address] [place] [address] Dr. Rc Foster Glucose [Mass/Vol] 143 mg/dL Normal [facility] Comment on above: Performed By: #### A 1C #### [facility] [address] [place] [address] Dr. Rc Foster HbA1c (Bld) [Mass fraction] 6.6 % Critically high 4.5-6.2 [facility] Comment on above: Performed By: #### A 1C #### [facility] [address] [place] [address] Dr. Rc Foster LIPID PROFILEon 03-30-2022 CHOL-HDL RATIO NORM SEE BELOW Normal [facility] Comment on above: Result Comment: 3.3 - 4.4 LOW RISK 4.4 - 7.1 AVERAGE RISK 7.1 - 11.0 MODERATE RISK >11.0 HIGH RISK Performed By: #### T SH, CMP, LIPID ####[facility] [address] [place], [place] [address]Db. Rc Foster Cholesterol [Mass/Vol] 184 mg/dL Normal <=200 [facility] Comment on above: Performed By: #### T SH, CMP, LIPID ####[facility] [address] [place], [place] [address]Rg. Rc Foster Cholesterol in HDL [Mass/Vol] 42 mg/dL Normal 40-60 [facility] Comment on above: Performed By: #### T SH, CMP, LIPID ####[facility] [address] [place], [place] [address]Ap. Rc Foster Cholesterol in LDL [Mass/Vol] 87.0 mg/dL Normal [facility] Comment on above: Performed By: #### T SH, CMP, LIPID ####[facility] [address] [place], [place] [address]Br. Rc Foster Cholesterol.total/Chol esterol in HDL [Mass ratio] 4.4 {ratio} Normal [facility] Comment on above: Performed By: #### T SH, CMP, LIPID ####[facility] [address] [place], [place] [address]Kf. Rc Foster HDL NORMAL > or = 60 mg/dl - LO W CARDIOVASCULAR RISK <40 mg/dl - HIGH CARDIOVASCULAR RISK Normal [facility] Comment on above: Performed By: #### T SH, CMP, LIPID ####[facility] [address] [id number]. Rc Foster LDL CALC NORMAL SEE BELOW Normal [facility] Comment on above: Result Comment: <100 mg/dl OPTIMAL 100 - 129 mg/dl NEAR OR ABOVE OPTIMAL 130 - 159 mg/dl BORDERLINE HIGH 160 - 189 mg/dl HIGH >190 mg/dl VERY HIGH Performed By: #### T SH, CMP, LIPID ####[facility] [address] [id number]. Rc Foster Triglyceride [Mass/Vol] 275 mg/dL Critically high <=150 [facility] Comment on above: Performed By: #### T SH, CMP, LIPID ####[facility] [address] [id number]. Rc Foster VLDL CALC 55.0 mg/dL Normal [facility] Comment on above: Performed By: #### T SH, CMP, LIPID ####[facility] [address] [id number]. Rc Foster PROF 14(COMP METB)on 022 Albumin [Mass/Vol] 4.0 g/dL Normal 3.4-5.0 [facility] Comment on above: Performed By: #### T SH, CMP, LIPID ####[facility] [address] [address]Dr. Rc Foster Albumin/Globulin [Mass ratio] 1.1 {ratio} Normal [facility] Comment on above: Performed By: #### T SH, CMP, LIPID ####[facility] [address] [address]Dr. Rc Foster ALP [Catalytic activity/Vol] 71 U/L Normal 46-116 [facility] Comment on above: Performed By: #### T SH, CMP, LIPID ####[facility] [address] [id number]. Rc Foster ALT [Catalytic activity/Vol] 29 U/L Normal 14-59 [facility] Comment on above: Performed By: #### T SH, CMP, LIPID ####[facility] [address] [id number]. Rc Foster Anion gap [Moles/Vol] 13.2 mmol/L Normal [facility] Comment on above: Performed By: #### T SH, CMP, LIPID ####[facility] [address] [id number]. Rc Foster AST [Catalytic activity/Vol] 17 U/L Normal 15-37 [facility] Comment on above: Performed By: #### T SH, CMP, LIPID ####[facility] [address] [address]Dr. Rc Foster Bilirubin [Mass/Vol] 0.6 mg/dL Normal 0.2-1.0 [facility] Comment on above: Performed By: #### T SH, CMP, LIPID ####[facility] [address] [address]Dr. Rc Foster Calcium [Mass/Vol] 9.0 mg/dL Normal 8.5-10.1 [facility] Comment on above: Performed By: #### T SH, CMP, LIPID ####[facility] [address] [address]Dr. Rc Foster Chloride [Moles/Vol] 102 mmol/L Normal 98-107 [facility] Comment on above: Performed By: #### T SH, CMP, LIPID ####[facility] [address] [address]Dr. Rc Foster CO2 [Moles/Vol] 27.3 mmol/L Normal 21.0-32.[address] [facility] Comment on above: Performed By: #### T SH, CMP, LIPID ####[facility] [address] [address]Dr. Rc Foster Creatinine [Mass/Vol] 1.00 mg/dL Normal 0.55-1.02 [facility] Comment on above: Performed By: #### T SH, CMP, LIPID ####[facility] [address] [address]Dr. Rc Foster EGFR-AF ARGENTINE >60 Normal >=[address] [facility] Comment on above: Performed By: #### T SH, CMP, LIPID ####[facility] [address] [address]Dr. Rc Foster EGFR-NON AF ARGENTINE 56 mL/min/1.73m2 Critically low >=60 [facility] Comment on above: Performed By: #### T SH, CMP, LIPID ####[facility] [address] [place], [place] [address]Dr. Rc Foster Globulin (S) [Mass/Vol] 3.5 g/dL Normal [facility] Comment on above: Performed By: #### T MARYJ ANE, CMP, LIPID ####[facility] [address] [address]Dr. Rc Foster Glucose [Mass/Vol] 159 mg/dL Critically high 74-106 [facility] Comment on above: Performed By: #### T MARY JANE, CMP, LIPID ####[facility] [address] [address]Dr. Rc Foster Potassium [Moles/Vol] 4.5 mmol/L Normal 3.5-5.1 [facility] Comment on above: Performed By: #### T MARY JANE, CMP, LIPID ####[facility] [address] [address]Dr. Rc Foster Protein [Mass/Vol] 7.5 g/dL Normal 6.4-8.2 [facility] Comment on above: Performed By: #### T MARY JANE, CMP, LIPID ####[facility] [address] [address]Dr. Rc Foster Sodium [Moles/Vol] 138 mmol/L Normal 136-145 [facility] Comment on above: Performed By: #### T MARY JANE, CMP, LIPID ####[facility] [address] [address]Dr. Rc Foster Urea nitrogen [Mass/Vol] 23.0 mg/dL Critically high 7.0-18.0 [facility] Comment on above: Performed By: #### T MARY JANE, CMP, LIPID ####[facility] [address] [address]Dr. Rc Foster Urea nitrogen/Creatinine [Mass ratio] 23.0 mg/mg Normal [facility] Comment on above: Performed By: #### T MARY JANE, CMP, LIPID ####[facility] [address] [address]Dr. Rc Foster TSHon 03-30-2022 TSH 2.807 uIU/mL Normal 0.358-3.740 [facility] Comment on above: Performed By: #### T SH, CMP, LIPID ####[facility] [address] [place], [place] [address]TrRodger Foster US THYROIDon 03-30-2022 US THYROID EXAMINATION: [...] BERNY QUISPE Date: 2022-03-30 11:03 Normal [facility] MAMM SCREEN 3D LEX CADon 03-19-2022 MG MAMM SCREEN 3D LEX CAD Patient: CARROLL FUENTES Exam Date: 03/19/2022 : 1960 Gender:F Ordering : DR ROBERT VILLASENOR D.O. Admission #: [id number] Family : Order #: [id number] CLICK HERE TO VIEW EXAM RADIOLOGY REPORT [...] Family Cancers None LOCATION: [facility] BREAST COMPOSITION: Scattered areas fibroglandular [...] Quispe M.D. on 03/23/2022 at 11:[address] [facility] CBC AUTO DIFFon 11-27-2021 BASO # 0.0 103/ul Normal 0.0-0.1 [facility] Comment on above: Performed By: #### C BC #### [facility] [address] [place] [address] Dr. Rc Foster Basophils/100 WBC (Bld) 0.7 % Normal 0.2-2.0 [facility] Comment on above: Performed By: #### C BC #### [facility] [address] [place] [address] Dr. Rc Foster EO # 0.6 103/ul Normal 0.0-0.7 [facility] Comment on above: Performed By: #### C BC #### [facility] [address] [address] [address] Rc Foster Eosinophils/100 WBC (Bld) 10.3 % Critically high 0.9-7.0 [facility] Comment on above: Performed By: #### C BC #### [facility] [address] [place] [address] Dr. Rc Foster Erythrocyte distribution width (RBC) [Ratio] 12.4 % Normal 11.0-15.0 [facility] Comment on above: Performed By: #### C BC #### [facility] [address] [place] [address] Dr. Rc Foster Hematocrit (Bld) [Volume fraction] 41.2 % Normal 36.0-48.0 [facility] Comment on above: Performed By: #### C BC #### [facility] [address] [place] [address] Dr. Rc Foster Hemoglobin (Bld) [Mass/Vol] 13.4 g/dL Normal 12.0-16.0 [facility] Comment on above: Performed By: #### C BC #### [facility] [address] [place] [address] Dr. Rc Foster IG # 0.01 10e3/ul Normal 0.00-0.03 [facility] Comment on above: Performed By: #### C BC #### [facility] [address] [place] [address] Dr. Rc Foster IG % 0.2 % Normal 0.0-0.5 [facility] Comment on above: Performed By: #### C BC #### [facility] [address] [place] [address] Dr. Rc Foster LYMPH # 2.3 103/ul Normal 1.2-3.8 [facility] Comment on above: Performed By: #### C BC #### [facility] [address] [place] [address] Dr. Rc Foster Lymphocytes/100 WBC (Bld) 40.6 % Normal 20.5-60.0 [facility] Comment on above: Performed By: #### C BC #### [facility] [address] [place] [address] Dr. Rc Foster MANUAL DIFF REQ NO Normal [facility] Comment on above: Performed By: #### C BC #### [facility] [address] [place] [address] Dr. Rc Foster MCH (RBC) [Entitic mass] 28.8 pg Normal 26.7-34.0 [facility] Comment on above: Performed By: #### C BC #### [facility] [address] [place] [address] Dr. Rc Foster MCHC (RBC) [Mass/Vol] 32.5 g/dL Normal 29.9-35.2 [facility] Comment on above: Performed By: #### C BC #### [facility] [address] [address] [address] Rc Foster MCV (RBC) [Entitic vol] 88.6 fL Normal 81.0-99.0 [facility] Comment on above: Performed By: #### C BC #### [facility] [address] [address] [address] Rc Foster MONO # 0.4 103/ul Normal 0.3-0.8 [facility] Comment on above: Performed By: #### C BC #### [facility] [address] [place] [address] Dr. Rc Foster Monocytes/100 WBC (Bld) 7.6 % Normal 1.7-12.0 [facility] Comment on above: Performed By: #### C BC #### [facility] [address] [place] [address] Dr. Rc Foster NEUT # 2.3 103/ul Normal 1.4-6.5 [facility] Comment on above: Performed By: #### C BC #### [facility] [address] [place] [address] Dr. Rc Foster Neutrophils/100 WBC (Bld) 40.6 % Critically low 43.0-75.0 [facility] [facility] Comment on above: Performed By: #### C BC #### [facility] [address] [place] [address] Dr. Rc Foster Platelet mean volume (Bld) [Entitic vol] 9.6 fL Normal 9.5-13.5 [facility] Comment on above: Performed By: #### C BC #### [facility] [address] [place] [address] Dr. Rc Foster PLT 194 103/ul Normal 150-450 [facility] Comment on above: Performed By: #### C BC #### [facility] [address] [place] [address] Dr. Rc Foster RBC 4.65 106/ul Normal 4.20-5.40 [facility] Comment on above: Performed By: #### C BC #### [facility] [address] [place] [address] Dr. Rc Foster WBC 5.5 103/ul Normal 4.0-11.0 [facility] Comment on above: Performed By: #### C BC #### [facility] [address] [place] [address] Dr. Rc Foster GLYCOHEMOGLOBIN A1Con 2021 ADA RECOMMENDATION SEE BELOW Normal [facility] Comment on above: Result Comment: ADA RECOMMENDED LIMIT 4.0 - 6.0 ADA THERAPEUTIC TARGET < 7.0 ACTION SUGGESTED > 7.0 Performed By: #### A 1C #### [facility] [address] [place] [address] Dr. Rc Foster Glucose [Mass/Vol] 131 mg/dL Normal [facility] Comment on above: Performed By: #### A 1C #### [facility] [address] [place] [address] Dr. Rc Foster HbA1c (Bld) [Mass fraction] 6.2 % Normal 4.5-6.2 [facility] Comment on above: Performed By: #### A 1C #### [facility] [address] [place] [address] Dr. Rc Foster PROF CHEM 8 (BAS METB)on Anion gap [Moles/Vol] 15.2 mmol/L Normal [facility] Comment on above: Performed By: #### T SH, BMP #### [facility] [address] [place] [address] Dr. Rc Foster Calcium [Mass/Vol] 8.5 mg/dL Normal 8.5-10.1 [facility] Comment on above: Performed By: #### T SH, BMP #### [facility] [address] [place] [address] Dr. Rc Foster Chloride [Moles/Vol] 100 mmol/L Normal 98-107 [facility] Comment on above: Performed By: #### T SH, BMP #### [facility] [address] [place] [address] Dr. Rc Foster CO2 [Moles/Vol] 26.6 mmol/L Normal 21.0-32.0 [facility] Comment on above: Performed By: #### T SH, BMP #### [facility] [address] [place] [address] Dr. cR Foster Creatinine [Mass/Vol] 1.15 mg/dL Critically high 0.55-1.02 [facility] Comment on above: Performed By: #### T SH, BMP #### [facility] [address] [place] [address] Dr. Rc Foster EGFR-AF ARGENTINE 58 mL/min/1.73m2 Critically low >=60 [facility] Comment on above: Performed By: #### T SH, BMP #### [facility] [address] [place] [address] Dr. Rc Foster EGFR-NON AF ARGENTINE 48 mL/min/1.73m2 Critically low >=60 [facility] Comment on above: Performed By: #### T SH, BMP #### [facility] [address] [place] [address] Dr. Rc Foster Glucose [Mass/Vol] 211 mg/dL Critically high 74-106 [facility] Comment on above: Performed By: #### T SH, BMP #### [facility] [address] [place] [address] Dr. Rc Foster Potassium [Moles/Vol] 4.8 mmol/L Normal 3.5-5.1 [facility] Comment on above: Performed By: #### T SH, BMP #### [facility] [address] [place] [address] Dr. Rc Foster Sodium [Moles/Vol] 137 mmol/L Normal 136-145 [facility] Comment on above: Performed By: #### T SH, BMP #### [facility] [address] [place] [address] Dr. Rc Foster Urea nitrogen [Mass/Vol] 33.0 mg/dL Critically high 7.0-18.0 [facility] Comment on above: Performed By: #### T SH, BMP #### [facility] [address] [place] [address] Dr. Rc Foster Urea nitrogen/Creatinine [Mass ratio] 28.7 mg/mg Normal [facility] Comment on above: Performed By: #### T MARY JANE, BMP #### [facility] [id number] Rc Foster TSHon 11-27-2021 TSH 0.744 uIU/mL Normal 0.358-3.740 [facility] Comment on above: Performed By: #### T MARY JANE, BMP #### [facility] [address] [address] [address] Rc Foster SYMPTOMATIC COVID-19 ANTIGEN on 10-28-2021 EUA Statement SEE BELOW Normal [facility] Comment on above: Result Comment: This [...] Performed By: #### C VDAGS ####[facility] [id number] [address]Dr. Rc Foster SARS-CoV-2 (COVID-19) RNA YARED+probe Ql (Unsp spec) Negative Normal NEGATIVE [facility] Comment on above: Performed By: #### C VDAGS ####[facility] [id number] [id number]. Rc Foster GLYCOHEMOGLOBIN A1Con 2021 ADA RECOMMENDATION SEE BELOW Normal [facility] Comment on above: Result Comment: ADA RECOMMENDED LIMIT 4.0 - 6.0 ADA THERAPEUTIC TARGET < 7.0 ACTION SUGGESTED > 7.0 Performed By: #### A 1C #### [facility] [address] [address] [address] Rc Foster Glucose [Mass/Vol] 128 mg/dL Normal [facility] Comment on above: Performed By: #### A 1C #### [facility] [address] [address] [address] Rc Foster HbA1c (Bld) [Mass fraction] 6.1 % Normal 4.5-6.2 [facility] Comment on above: Performed By: #### A 1C #### [facility] [address] [address] [address] Rc Foster Discharge CCD Assessmenton 0 09-06-2020 Discharge CCD Assessment [facility] Patient: CARROLL FUENTES [address] [place] [address] MR#: [id number] DISCHARGE CCD ASSESSMENT : 58 Service Date: 09/06/20 1018 Discharge CCD Assessment Assessment Patient discharged home to continue exercises, pain medication, and wound care Electronically Signed eSign Date and Time Melyssa Flores 09/06/20 1019 Tera Hernandez MD Normal [facility] GLUCOSE METERon 09-06-2020 Glucose [Mass/Vol] 126 mg/dL High 70-99 [facility] Comment on above: Order Comment: CONSE RVATION Result Comment: Fast ing GLUCOSE reference range has been updated per (ADA) [place] Diabetes Association's recommendation. 07/18/2018 Performed By: #### L 500.68779 ####Test performed at: [place] [address] Glucose [Mass/Vol] 205 mg/dL High 70-99 [facility] Comment on above: Order Comment: CONSE RVATION Result Comment: Fast ing GLUCOSE reference range has been updated per (ADA) [place] Diabetes Association's recommendation. 07/18/2018 Insulin per sl scale Performed By: #### L 500.60842 #### Test performed at: [place] [address] Internal Med Progress Noteon 09-06-2020 Internal Med Progress Note [facility] Patient: CARROLL FUENTES [address] [id number] MR#: [id number] PROGRESS NOTE - Internal Medicine : 58 [...] - 99 mg/dL) 126 205 177 310 Assessment/Plan-Waste Duster al Med Problem List 1. S/P cervical [...] RES, Katarzyn a MD 09/06/20 1134 Normal [facility] Orthopedic Progress Noteon 0 09-06-2020 Orthopedic Progress Note [facility] Patient: CARROLL FUENTES [address] [place] [address] MR#: [id number] PROGRESS NOTE - Orthopedic : 58 Service [...] RN 09/06/20 1022 Tera Hernandez MD Normal [facility] Anesthesia Noteon 09-05-2020 Anesthesia Note [facility] Patient: CARROLL FUENTES [address] [place] [address] MR#: [id number] ANESTHESIA NOTE : Service Date: 09/05/20 0812 [...] APRN-SHILPI 09/05/20 0813 Chu Glez MD Normal [facility] BASIC MET PANELon 09-05-2020 Anion gap [Moles/Vol] 12 mmol/L Normal 6-18 [facility] Comment on above: Performed By: #### L 500.58237, L500.24336 #### Test performed at: [place] [address] Calcium [Mass/Vol] 8.7 mg/dL Normal 8.5-10.1 [facility] Comment on above: Performed By: #### L 500.71244, L500.30011 #### Test performed at: [address] [address] Chloride [Moles/Vol] 101 mmol/L Normal 98-107 [facility] Comment on above: Performed By: #### L 500.78661, L500.62614 #### Test performed at: [address] [address] CO2 [Moles/Vol] 25 mmol/L Normal 21-32 [facility] Comment on above: Performed By: #### L 500.29248, L500.51914 #### Test performed at: [address] [address] Creatinine [Mass/Vol] 1.020 mg/dL Normal 0.550-1.020 [facility] Comment on above: Performed By: #### L 500.22909, L500.24643 #### Test performed at: [address] [address] Glucose [Mass/Vol] 264 mg/dL High 70-99 [facility] Comment on above: Result Comment: Fast ing GLUCOSE reference range has been updated per (ADA) [place] Diabetes Association's recommendation. 07/18/2018 Performed By: #### L 500.63752, L500.57699 #### Test performed at: [address] [address] OSM 289 mosm/kg Normal 270-300 [facility] Comment on above: Performed By: #### L 500.90978, L500.50819 #### Test performed at: [address] [address] Potassium [Moles/Vol] 4.5 mmol/L Normal 3.5-5.1 [facility] Comment on above: Performed By: #### L 500.73475, L500.73271 #### Test performed at: [address] [place] [address] Sodium [Moles/Vol] 134 mmol/L Low 136-145 [facility] Comment on above: Performed By: #### L 500.30744, L500.05566 #### Test performed at: [address] [address] Urea nitrogen [Mass/Vol] 17 mg/dL Normal 7-18 [facility] Comment on above: Performed By: #### L 500.72749, L500.25265 #### Test performed at: [place] [id number] GFR ESTIMATEon 09-05-2020 IF AMER > 60 Normal > 60 [facility] Comment on above: Result Comment: eGFR (Estimated GFR) Units of measure:mL/min/1.73 meters sq. *CALCULATION REVISED 02/11/2015;IDMS-traceable MDRD equation eGFR is derived from the reexpressed MDRD Study equation using the following parameters: serum creatinine, age, gender and race. An eGFR<60 mL/min/1.73m2 for >3 months is consistent with chronic kidney disease. Refer to KDOQI guidelines for clinical interpretation. Performed By: #### L 500.73459, L500.74555 #### Test performed at: [place] [id number] IF non-AFR AMER 55 Low > 60 [facility] Comment on above: Performed By: #### L 500.05601, L500.54495 #### Test performed at: [place] [id number] GLUCOSE METERon 09-05-2020 Glucose [Mass/Vol] 177 mg/dL High 70-99 [facility] Comment on above: Order Comment: CONSE RVATION Result Comment: Fast ing GLUCOSE reference range has been updated per (ADA) [place] Diabetes Association's recommendation. 07/18/2018 Performed By: #### L 500.22100 #### Test performed at: [address] [address] [place] [address] Glucose [Mass/Vol] 310 mg/dL High 70-99 [facility] Comment on above: Result Comment: Fast ing GLUCOSE reference range has been updated per (ADA) [place] Diabetes Association's recommendation. 07/18/2018 Insulin per sl scale Performed By: #### L 500.44132 ####Test performed at: [address] [address] Glucose [Mass/Vol] 281 mg/dL High 70-99 [facility] Comment on above: Result Comment: Fast ing GLUCOSE reference range has been updated per (ADA) [place] Diabetes Association's recommendation. 07/18/2018 Insulin per sl scale Performed By: #### L 500.94145 #### Test performed at: [address] [address] Glucose [Mass/Vol] 105 mg/dL High 70-99 [facility] Comment on above: Result Comment: Fast ing GLUCOSE reference range has been updated per (ADA) [place] Diabetes Association's recommendation. 07/18/2018 Performed By: #### L 500.99586 #### Test performed at: [address] [address] HGB AND HCTon 09-05-2020 Hematocrit (Bld) [Volume fraction] 37.5 % Normal 36.0-48.0 [facility] Comment on above: Performed By: #### L 200.85873 #### Test performed at: [address] [address] Hemoglobin (Bld) [Mass/Vol] 12.5 g/dL Normal 12.0-15.0 [facility] Comment on above: Performed By: #### L 200.10142 #### Test performed at: [address] [address] Internal Med Progress Noteon 09-05-2020 Internal Med Progress Note [facility] Patient: CARROLL FUENTES [address] [place] [address] MR#: [id number] PROGRESS NOTE - Internal Medicine : 58 [...] 12.5 Hct (36.0 - 48.0 %) 37.5 Assessment/Plan-Waste Duster al Med Problem List 1. S/P cervical [...] input. Disc (more content not included)... Normal [facility] OT Therapy Recommendationson 09-05-2020 OT Therapy Recommendations [facility] Patient: CARROLL FUENTES [address] [place], [place] [id number] MR#: [id number] OT THERAPY RECOMMENDATIONS : 58 Service Date: 09/05/201510 Therapy Recommendations Therapy Recommendations Recommendations OT evaluation completed. OT recommends HOME with FAmily assist. No further acute OT needs are indicated at this time. Electronically Signed eSign Date and Time Trupti Rojas OT 09/05/20 151 Normal [facility] Orthopedic Progress Noteon 0 09-05-2020 Orthopedic Progress Note [facility] Patient: CARROLL FUENTES [address] [place], [place] [id number] MR#: [id number] PROGRESS NOTE - Orthopedic : 58 Service [...] Tests 09/05 09/05 09/05 09/04 1058 0642 [id number] Chemistry Sodium (136 - 145 mmol/L) 134 [...] KHAN 09/05/20 1429 Tera Hernandez MD Normal [facility] PT Therapy Recommendationson 09-05-2020 PT Therapy Recommendations [facility] Patient: CARROLL FUENTES [address] [place] [address] MR#: [id number] PT THERAPY RECOMMENDATIONS : 58 Service Date: 09/05/20913 Therapy Recommendations Therapy Recommendations Recommendations PT eval complete. No further acute PT needs. Recommend d/c home /c family assist. Electronically Signed eSign Date and Time Tiffanie Bashir PT 09/05/20 0914 Normal [facility] z OT Inpatient Discharge Not juan 09-05-2020 z OT Inpatient Discharge Note [facility] Patient: CARROLL FUENTES [address] [id number] MR#: [id number] OT INPATIENT DISCHARGE NOTE : 58 Service [...] Time Trupti Rojas OT 09/05/20 1534 Normal [facility] z OT Inpatient Evaluationon 09-05-2020 z OT Inpatient Evaluation [facility] Patient: CARROLL FUENTES [address] [address] MR#: [id number] OT INPATIENT EVALUATION : 58 Inpatient OT HPI Date of Service 09/05/20 Time In: 1401 Time Out: 1412 Total Treatment Time (Mins) 11 Visit Reason LATERAL RECESS STENOSIS W/ RADICULOPATHY Surgery Type/Date s/p L L4-5 LAmi, foraminotomy, decompression on 09.04.20/ Lumbar spine precautions Referral Date 09/04/20 Tx Diagnosis: LOW BACK PAIN Insurance Name [facility] POS [facility] Hospital Course Pt [...] Excellent Nader (more content not included)... Normal [facility] z PT Inpatient Discharge Not juan 09-05-2020 z PT Inpatient Discharge Note [facility] Patient: CARROLL FUENTES [address] [place], [place] [id number] MR#: [id number] PT INPATIENT DISCHARGE NOTE : 58 Service [...] Time Tiffanie Bashir PT 09/05/20 1139 Normal [facility] z PT Inpatient Evaluationon 09-05-2020 z PT Inpatient Evaluation [facility] Patient: CARROLL FUENTES [address] [place], [place] [address] MR#: [id number] PT INPATIENT EVALUATION : 58 Service Date: 09/05/20 0928 Inpatient PT HPI Date of Service 09/05/20 Time In: 0845 Time Out: 0907 Total Treatment Time (Mins) 22 Room Number 624 Visit Reason LATERAL RECESS STENOSIS W/ RADICULOPATHY Surgery Type: L L4-5 lami, foraminotomy, decompression Surgery Date: 09/04/20 Referral Date 09/04/20 Tx Diagnosis: LOW BACK PAIN Insurance Name [facility] POS O Hospital Course 60 y.o female at [facility] for above sx d/t lateral recess stenosis [...] posture. Improved stability noted /c single UE support/CUTTER HAND. Pt agreeable to use of her cane [...] Time Tiffanie Bashir PT 09/05/20 1502 Normal [facility] GLUCOSE METERon 09-04-2020 Glucose [Mass/Vol] 94 mg/dL Normal 70-99 [facility] Comment on above: Result Comment: Fast ing GLUCOSE reference range has been updated per (ADA) [place] Diabetes [employer]'s recommendation. 07/18/2018 Performed By: #### L 500.15034 ####Test performed at: [place] [address] Internal Medicine Consultati onon 09-04-2020 Internal Medicine Consultation [facility] Patient: CARROLL FUENTES [address] [place] [address] MR#: [id number] CONSULTATION - Internal Medicine : 58 Service [...] of Systems (more content not included)... Normal [facility] OPERATIVE REPORTon OPERATIVE REPORT NAME: CARROLL FUENTES MR#: [id number] SURGEON: Tera Hernandez MD DATE OF SURGERY: [...] there were no complications. TERA HERNANDEZ MD [facility] PT NAME: CARROLL FUENTES MR#: [id number] [address] [place] [address] ACCT: [id number] : 58 OPERATIVE REPORT JFS/[id number] E/S: Tera Hernandez MD 09/18/20 1207 Electronically Signed [facility] PT NAME: CARROLL FUENTES MR#: [id number] [address] [place], [place] [address] ACCT: [id number] : 58 OPERATIVE REPORT Normal [facility] Primary Residenton Primary Resident [facility] Pt Name: CARROLL FUENTES MR#: [id number] [address] [place] [address] ACCT: [id number] [place] [address] : 58 Service Date: 09/04/20 1603 Primary Resident/Call Primary Resident: [id number] [address] After Hours Call: [phone] Red Team Electronically Signed eSign Date and Time Ana Flanagan RES 09/16/20 1521 Normal [facility] LUMBAR SPINE 2 OR 3 VIEWSon 09-03-2020 LUMBAR SPINE 2 OR 3 VIEWS STUDY: LUMBAR SPINE 2 OR 3 VIEWS; 09/04/2020 2:57 pm INDICATION: LEFT L4-L5 LAMINECTOMY,FORAMINOTO MY,DECOMPRESSION. COMPARISON: None. ACCESSION NUMBER(S): [id number] ORDERING CLINICIAN: Tera Hernandez FINDINGS: Intraoperative fluoroscopy of the lumbar spine demonstrates surgical instruments posterior to L5. IMPRESSION: As above Normal [facility] CHEST PA/AP & LATERALon CHEST PA/AP & LATERAL STUDY: CHEST PA/AP LATERAL; 08/25/2020 11:00 am INDICATION: SOB/PAT. COMPARISON: None. ACCESSION NUMBER(S): [id number] ORDERING CLINICIAN: Madelyn Leone FINDINGS: The lungs are clear without pleural effusion. Normal heart size, mediastinum, elzbieta, and pulmonary vasculature. IMPRESSION: No active disease in the chest. Normal [facility] CONSULTATION REPORTon 2020 CONSULTATION REPORT NAME: CARROLL FUENTES MR#: [id number] CAKE CUTTER MACHINE: Madelyn Leone MD DATE OF CONSULTATION: 08/25/2020 [...] pulse ox is 98% on room air. [facility] PT NAME: CARROLL FUENTES MR#: [id number] [address] [place] [address] ACCT: [id number] : 58 CONSULTATION HEENT: Atraumatic head. 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 IMPRESSION: 1. Preop clearance for L4-L5 disk [...] courtesy of this consultation. MADELYN LEONE MD MS/MODL/[id number] E/S: Madelyn Leone MD 08/26/20 1750 Electronically Signed [facility] PT NAME: CARROLL FUENTES MR#: [id number] [address] [place] [address] ACCT: [id number] : 58 CONSULTATION Normal [facility] LUMB SP COMP W FLEX/EXT 6 VW S>on 08-08-2020 LUMB SP COMP W FLEX/EXT 6 VWS> STUDY: LUMB SP COMP W FLEX/EXT 6 VWS>; 08/08/2020 9:43 am INDICATION: BACK PAIN. COMPARISON: No available comparisons. ACCESSION NUMBER(S): [id number] ORDERING CLINICIAN: Tera Hernandez TECHNIQUE: 6 views [...] L5-S1 level. No evidence of instability.. Normal [facility] XR SHLDR >/=3V AP/RUSH AP/OTH R [...] ANES Holly 06-20-2018 ANES POST HNO ID: [id number] Author: Rohit Velarde Service: Anesthesiology Author Type: [...] 20, 2018 TIME: 2:38 PM PAGER/CONTACT #: [facility] ANES PREOPon 06-20-2018 ANES PREOP HNO ID: [id number] Author: Rohit Velarde Service: Anesthesiology Author Type: [...] June 20, 2018 TIME: 9:35 AM CSN: [id number] [facility] BRIEF OP NOTon 06-20-2018 BRIEF OP NOT HNO ID: [id number] Author: Kusum Francisco Service: Orthopaedic Surgery Author Type: Resident Type: Brief Op Note Filed: 06/20/2018 5:49 PM Note Text: BRIEF OP NOTE LOG ID: [id number] Surgery/Procedure Date: 06/20/2018 Incision/Procedure Start Time: 11:18 AM Incision Close/Procedure End Time: 1:17 PM Surgeon(s)/Procedurali st(s) and Chief Of Field Operations(s): Surgeon(s) and Role: * Jenna Garsia - [...] 20, 2018 TIME: 5:49 PM PAGER/CONTACT #: [facility] CASE MANAGEMon 06-20-2018 CASE MANAGEM HNO ID: [id number] Author: May Herrera (Sw) Service: Care Management Author Type: Environment Friendly Landscape Designer Type: Care Mgt Progress Note Filed: 06/20/2018 [...] is pcp summary of care sent via [employer] () Nurse to provide discharge instructions. TRANSPORTATION ARRANGEMENTS: Car Spouse ADDITIONAL CONTACT RESOURCES: Needs Prior to Discharge: Ready for Discharge Appointments for Next 45 Days Date Time Provider Location Dept Phone 07/03/2018 10:00 AM CAROLA BAPTISTE AT [phone] 07/03/2018 10:30 AM GABRIEL CANTU) [facility] AT [phone] 07/31/2018 2:15 PM JENNA GARSIA AT [phone] Pt to be discharged home to follow up as above. SIGNATURE: DARIO Saini PATIENT NAME: Carroll Fuentes DATE: June 20, 2018 TIME: 5:31 PM PAGER/CONTACT #: [phone] [facility] CASE MGT INIT [facility] [address] 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 O.Therapy recommend home. Spouse visiting at bedside and will transport pt home later today.Further discharge needs not anticipated.SW/TCC to follow to assist with plans for discharge. SIGNATURE: DARIO Saini PATIENT NAME: Carroll Fuentes DATE: June 20, 2018 TIME: 5:27 PM PAGER/CONTACT #: [phone] [facility] CONSULTon 06-20-2018 CONSULT HNO ID: [id number] Author: Dulce Green Service: General Internal Medicine [...] Disp: Rfl: 06/19/2018 at 0630 rizatriptan (MAXALT LOCAL AREA NETWORK ADMINISTRATOR) 10 mg disintegrating tablet DISSOLVE 1 TABLET [...] the care of your patient. Dulce Green APRN.MALLET AND DIE CUTTER June 20, 2018 4:34 PM Normal [facility] NURSING PROGon 06-20-2018 Protein mass conc HNO ID: [id number] Author: Fela ValenciaRn) FLETCHER Phillips Service: (none) [...] at bedside. 1720. Dr. Meeks and Dulce STRAIGHTENING ROLL OPERATOR at bedside, plan is to stay [...] note was completed by: Fela Phillips RN [facility] Protein mass conc HNO ID: [id number] Author: Wendy (Rn) FLETCHER Underwood Service: Nursing [...] note was completed by: Wendy Underwood RN [facility] OPERATIVE NOon 06-20-2018 OPERATIVE NO HNO ID: [id number] Author: Jenna Garsia Service: Orthopaedic Surgery Author Type: Physician Type: Operative Report Filed: 06/20/2018 1:25 PM Note Text: [place] [id number] [place] OPERATIVE REPORT NAME: [facility] #: [id number] DATE: 06/20/2018 (11:18am-1:17pm) AGE: 58 SURGEON 1: Jenna Garsia M.D. LATIN DANCE INSTRUCTOR: 1. Augie Coates M.D. 2. Kusum Prasad M.D. 3. Mundo Pablo OPERATION: Right total shoulder arthroplasty, biceps tenodesis. ANESTHESIA: General anesthesia with regional interscalene nerve block for postoperative pain control. PREOPERATIVE DIAGNOSIS: Right shoulder primary glenohumeral osteoarthritis. POSTOPERATIVE DIAGNOSIS: Right shoulder primary glenohumeral osteoarthritis, biceps tendinopathy. OPERATIVE INDICATIONS: The patient is a 58 year [id number] right-hand dominant white female who has a [...] rotator interval stitch was then passed in fqyhtt-[id number] fashion with a #2 Ticron suture and tied down to close the lateral rotator interval and set the osteotomy superiorly. The two #2 Fiberwire sutures coming out of the bicipital groove were then sequentially passed in a qoibhk-[id number]-yxkxm fashion medial to the horizontal mattress and [...] none COMPLICATIONS: none apparent Jenna Garsia M.D. [facility] PT EDon 06-20-2018 PT ED HNO ID: [id number] Author: Cindy Cervantes) Gaby, RN Service: (none) [...] Signed By: Cindy Griffin RN In Department: [facility] SURGICAL SERVICES Normal [facility] THERAPY NTon 06-20-2018 THERAPY NT HNO ID: [id number] Author: Abi ValenciaOt) Alan Service: Occupational Therapy Author Type: Occupational Therapist Type: Therapy (PT/OT/Speech/Resp) Filed: 06/20/2018 4:59 PM Note Text: Occupational Therapy Evaluation SERVICE DATE: 06/20/2018 SERVICE TIME: 1550 to 1640 ROOM: [address] Recommended Discharge Disposition: Home Anticipated Discharge [...] daily living (ADL) Interventions Provided: Evaluation;Therapeutic Exercise (78957);Self Usp Management (28248) $ Evaluation-Low (84402) Billed Units: 1 unit Therapeutic Exercise (45896) Treatment Minutes: 10 1 unit Skilled Intervention(s): Education in Self Usp Management (11787) Treatment Minutes: 28 2 units Skilled Intervention(s): [...] Environment Patient Lives With: Spouse Assistance Available: realtime court reporter Number Of Stairs To Bed/Bath: 0 Equipment [...] DATE: June 20, 2018 TIME: 4:54 PM [facility] XR SHOULDER 2V AP/TRUE AP RT on 06-20-2018 XR SHOULDER 2V AP/TRUE AP RT * * *Final Report* * * DATE OF EXAM: Jun 20 2018 1:45PM [facility] 5255 - XR SHOULDER 2V AP/TRUE AP [...] Jun 20 2018 2:04PM EST [id number] [facility] NURSING PROGon 06-09-2018 Protein mass conc HNO ID: [id number] Author: Ivana (Rn) FLETCHER Heller Service: Nursing [...] AM Addendum 06/15/18 EKG IN [facility] FINAL Ivana Heller RN June 15, 2018 4:39 PM [facility] Type and SCR (30D)on 019 ABO/RH(D) Positive [facility] HOSPon 04-28-2018 HOSP Patient:Adalberto Fuentes MRN: Height:5' 2 (1.575 m) Weight:186 lb (84.369 kg) Outpatient Medications as of 06/20/18: calcium phosphate dibas/vit D3 (VITAMIN D, WITH CALCIUM, ORAL) docusate sodium (COLACE) 100 mg capsule aspirin, enteric coated (ECOTRIN LOW STRENGTH) 81 mg EC tablet oxyCODONE-acetaminophe n (PERCOCET) 5-325 mg tablet rizatriptan (MAXALT LOCAL AREA NETWORK ADMINISTRATOR) 10 mg disintegrating tablet mupirocin (BACTROBAN) 2 [...] 46.0 36.0 Progress Notes (RADIO CT SCAN [facility]): RT Lillian, John 06/07/2018 10:04 AM [...] RT Lillian June 07, 2018 9:54 AM [facility] Vital Signs Date Time Vital Sign Value Performing Clinician Facility 11-28-2024 13:37-0400 Body height 154.94 cm Robert Ball DO Work Phone: [facility] 11-28-2024 13:37-0400 Body mass index (BMI) [Ratio] 31.8 kg/m2 Robert Ball DO Work Phone: [facility] 11-28-2024 13:37-0400 Body weight 76.43 kg Robert Ball DO Work Phone: [facility] 11-28-2024 13:37-0400 Diastolic blood pressure 72 mm[Hg] Robert Ball DO Work Phone: [facility] 11-28-2024 13:37-0400 Heart rate 77 /min Robert Ball DO Work Phone: [facility] 11-28-2024 13:37-0400 Respiratory rate 12 /min Robert Ball DO Work Phone: [facility] 11-28-2024 13:37-0400 Systolic blood pressure 107 mm[Hg] Robert Ball DO Work Phone: [facility] 10-11-2024 10:42-0400 Body height 154.94 cm Robert Ball DO Work Phone: [facility] 10-11-2024 10:42-0400 Body mass index (BMI) [Ratio] 31.8 kg/m2 Robert Ball DO Work Phone: [facility] 10-11-2024 10:42-0400 Body weight 76.31 kg Robert Ball DO Work Phone: [facility] 10-11-2024 10:42-0400 Diastolic blood pressure 69 mm[Hg] Robert Ball DO Work Phone: [facility] 10-11-2024 10:42-0400 Heart rate 66 /min Robert Ball DO Work Phone: [facility] 10-11-2024 10:42-0400 Respiratory rate 12 /min Robert Ball DO Work Phone: [facility] 10-11-2024 10:42-0400 Systolic blood pressure 103 mm[Hg] Robert Ball DO Work Phone: [facility] 09-12-2024 15:22-0400 Body height 154.94 cm Robert Ball DO Work Phone: [facility] 09-12-2024 15:22-0400 Body mass index (BMI) [Ratio] 32.3 kg/m2 Robert Ball DO Work Phone: [facility] 09-12-2024 15:22-0400 Body weight 77.79 kg Robert Ball DO Work Phone: [facility] 09-12-2024 15:22-0400 Diastolic blood pressure 79 mm[Hg] Robert Ball DO Work Phone: [facility] 09-12-2024 15:22-0400 Heart rate 69 /min Robert Ball DO Work Phone: [facility] 09-12-2024 15:22-0400 Respiratory rate 12 /min Robert Ball DO Work Phone: [facility] 09-12-2024 15:22-0400 Systolic blood pressure 133 mm[Hg] Robert Ball DO Work Phone: [facility] 07-25-2024 09:00-0400 Diastolic blood pressure 79 mm[Hg] [facility] 07-25-2024 09:00-0400 Heart rate 66 /min [facility] 07-25-2024 09:00-0400 Respiratory rate 12 /min [facility] 07-25-2024 09:00-0400 Systolic blood pressure 161 mm[Hg] [facility] 07-18-2024 10:47-0400 Body height 154.94 cm [facility] 07-18-2024 10:47-0400 Body mass index (BMI) [Ratio] 32.8 kg/m2 [facility] 07-18-2024 10:47-0400 Body weight 78.95 kg [facility] 07-18-2024 10:47-0400 Diastolic blood pressure 74 mm[Hg] [facility] 07-18-2024 10:47-0400 Heart rate 68 /min [facility] 07-18-2024 10:47-0400 Respiratory rate 12 /min [facility] 07-18-2024 10:47-0400 Systolic blood pressure 134 mm[Hg] [facility] 07-13-2024 10:11-0400 Body height 154.94 cm [facility] 07-13-2024 10:11-0400 Body mass index (BMI) [Ratio] 32.9 kg/m2 [facility] 07-13-2024 10:11-0400 Body weight 79.01 kg [facility] 07-13-2024 10:11-0400 Diastolic blood pressure 77 mm[Hg] [facility] 07-13-2024 10:11-0400 Heart rate 65 /min [facility] 07-13-2024 10:11-0400 Respiratory rate 12 /min [facility] 07-13-2024 10:11-0400 Systolic blood pressure 117 mm[Hg] [facility] 07-11-2024 08:30-0400 Body temperature 98.6 [degF] Jose Sharif MD Work Phone: [facility] 07-11-2024 08:30-0400 Diastolic blood pressure 62 mm[Hg] Jose Sharif MD Work Phone: [facility] 07-11-2024 08:30-0400 Heart rate 88 /min Jose Sharif MD Work Phone: [facility] 07-11-2024 08:30-0400 Respiratory rate 16 /min Jose Sharif MD Work Phone: [facility] 07-11-2024 08:30-0400 SaO2% (BldA) [Mass fraction] 98 % Jose Sharif MD Work Phone: [facility] 07-11-2024 08:30-0400 Systolic blood pressure 117 mm[Hg] Jose Sharif MD Work Phone: [facility] 07-06-2024 20:16-0400 Body height 154.9 cm Jose Sharif MD Work Phone: [facility] 07-06-2024 20:16-0400 Body mass index (BMI) [Ratio] 33.07 kg/m2 Jose Sharif MD Work Phone: [facility] 07-06-2024 20:16-0400 Body weight 79.38 kg [facility] 07-04-2024 15:04-0400 Body height 154.94 cm [facility] 07-04-2024 15:04-0400 Body mass index (BMI) [Ratio] 32.9 kg/m2 [facility] 07-04-2024 15:04-0400 Body weight 79.06 kg [facility] 07-04-2024 15:04-0400 Diastolic blood pressure 79 mm[Hg] [facility] 07-04-2024 15:04-0400 Heart rate 69 /min [facility] 07-04-2024 15:04-0400 Respiratory rate 12 /min [facility] 07-04-2024 15:04-0400 Systolic blood pressure 177 mm[Hg] [facility] 06-25-2024 10:11-0500 Body temperature 97.3 [degF] [facility] 06-25-2024 10:11-0500 Diastolic blood pressure 76 mm[Hg] [facility] 06-25-2024 10:11-0500 Heart rate 54 /min [facility] 06-25-2024 10:11-0500 Respiratory rate 16 /min [facility] 06-25-2024 10:11-0500 SaO2% (BldA) [Mass fraction] 98 % [facility] 06-25-2024 10:11-0500 Systolic blood pressure 119 mm[Hg] [facility] 06-25-2024 10:07-0500 Body height 154.94 cm [facility] 06-25-2024 10:07-0500 Body mass index (BMI) [Ratio] 32.9 kg/m2 [facility] 06-25-2024 10:07-0500 Body weight 79.15 kg [facility] 02-24-2024 14:13-0400 Body height 154.94 cm [facility] 02-24-2024 14:13-0400 Body mass index (BMI) [Ratio] 33.1 kg/m2 [facility] 02-24-2024 14:13-0400 Body temperature 96 [degF] [facility] 02-24-2024 14:13-0400 Body weight 79.6 kg [facility] 02-24-2024 14:13-0400 Diastolic blood pressure 84 mm[Hg] [facility] 02-24-2024 14:13-0400 Heart rate 66 /min [facility] 02-24-2024 14:13-0400 Systolic blood pressure 159 mm[Hg] [facility] 12-20-2023 15:35-0400 Body height 154.94 cm [facility] 12-20-2023 15:35-0400 Body mass index (BMI) [Ratio] 33.8 kg/m2 [facility] 12-20-2023 15:35-0400 Body weight 81.19 kg [facility] 12-20-2023 15:35-0400 Diastolic blood pressure 80 mm[Hg] [facility] 12-20-2023 15:35-0400 Heart rate 78 /min [facility] 12-20-2023 15:35-0400 Respiratory rate 12 /min [facility] 12-20-2023 15:35-0400 Systolic blood pressure 134 mm[Hg] [facility] 04-29-2023 09:00-0500 Body height 154.94 cm Robert Ball Other [facility] Other 04-29-2023 09:00-0500 Body mass index (BMI) [Ratio] 33.14 kg/m2 Robert Ball Other [facility] Other 04-29-2023 09:00-0500 Body weight 79.56 kg Robert Ball Other [facility] Other 04-29-2023 09:00-0500 Diastolic blood pressure 89 mm[Hg] Robert Ball Other [facility] Other 04-29-2023 09:00-0500 Respiratory rate 12 /min Robert Ball Other [facility] Other 04-29-2023 09:00-0500 Systolic blood pressure 155 mm[Hg] Robert Ball Other [facility] Other 12-20-2022 13:45-0400 Body height 154.94 cm Robert Ball Other [facility] Other 12-20-2022 13:45-0400 Body mass index (BMI) [Ratio] 34.12 kg/m2 Robert Ball Other [facility] Other 12-20-2022 13:45-0400 Body weight 81.92 kg Robert Ball Other [facility] Other 12-20-2022 13:45-0400 Diastolic blood pressure 96 mm[Hg] Robert Ball Other [facility] Other 12-20-2022 13:45-0400 Respiratory rate 12 /min Robert Ball Other [facility] Other 12-20-2022 13:45-0400 Systolic blood pressure 179 mm[Hg] Robert Villasenor Other [facility] Other 08-04-2022 09:45-0400 Body height 154.94 cm Robert Villasenor Other [facility] Other 08-04-2022 09:45-0400 Body mass index (BMI) [Ratio] 33.33 kg/m2 Robert Villasenor Other [facility] Other 08-04-2022 09:45-0400 Body weight 80.02 kg Robert Villasenor Other [facility] Other 08-04-2022 09:45-0400 Diastolic blood pressure 77 mm[Hg] Robert Villasenor Other [facility] Other 08-04-2022 09:45-0400 Respiratory rate 12 /min Robert Villasenor Other [facility] Other 08-04-2022 09:45-0400 Systolic blood pressure 128 mm[Hg] Robert Villasenor Other [facility] Other Encounters Encounter Date Encounter Type Care Provider Facility Start: 11-28-2024 End: 11-28-2024 ambulatory Robert Villasenor DO Work Phone: [facility] Work Phone: Start: 11-28-2024 End: 11-28-2024 Patient encounter procedure Robert [facility]as[facility] DO [facility] Work Phone: Start: 11-23-2024 End: 11-25-2024 ambulatory ROBERT HAMILTON [facility] Start: 11-23-2024 End: 11-25-2024 Subsequent hospital visit by physician Tomás Helton DO Work Phone: [facility] MRI Comment on above: Osteoarthritis of ri ght knee, unspecified osteoarthritis type Start: 10-13-2024 Non-patient / Non-visit Robert barnard Kontron -[place] [facility] Work Phone: Start: 10-11-2024 End: 10-11-2024 Patient encounter procedure Robert Villasenor [facility] Work Phone: Start: 10-11-2024 End: 10-11-2024 Patient encounter status Robert Villasenor DO [facility] Start: 09-21-2024 Non-patient / Non-visit Robert barnard K[facility] -[place] [facility] Work Phone: Start: 09-14-2024 Non-patient / Non-visit Robert barnard DO -[facility] Work Phone: Start: 09-12-2024 End: 09-12-2024 Patient encounter procedure Robert Villasenor [facility] Work Phone: Start: 07-25-2024 End: 07-25-2024 ambulatory [facility] Work Phone: Start: 07-25-2024 End: 07-25-2024 Patient encounter procedure [facility] Work Phone: Start: 07-18-2024 End: 07-18-2024 ambulatory [facility] Work Phone: Start: 07-18-2024 End: 07-18-2024 Patient encounter procedure [facility] Work Phone: Start: 07-18-2024 Non-patient / Non-visit [facility] Work Phone: Start: 07-13-2024 End: 07-13-2024 ambulatory [facility] Work Phone: Start: 07-13-2024 End: 07-13-2024 Patient encounter procedure [facility] Work Phone: Start: 07-12-2024 Non-patient / Non-visit [facility] Work Phone: Start: 07-11-2024 Non-patient / Non-visit [facility] Work Phone: Start: 07-06-2024 End: 07-11-2024 Evaluation and management of inpatient Jose Sharif MD Work Phone: [facility] Start: 07-04-2024 End: 07-04-2024 ambulatory [facility] Work Phone: Start: 07-04-2024 End: 07-04-2024 Encounter for other preprocedural examination [facility] Start: 07-04-2024 End: 07-04-2024 Patient encounter procedure [facility] Work Phone: Start: 06-27-2024 Non-patient / Non-visit [facility] Work Phone: Start: 06-25-2024 End: 06-25-2024 ambulatory [facility] Work Phone: Start: 06-25-2024 End: 06-25-2024 Patient encounter procedure [facility] Work Phone: Start: 06-21-2024 ambulatory Raisa PRICE Facility:[facility] Start: 06-01-2024 Non-patient / Non-visit [facility] Work Phone: Start: 05-31-2024 Non-patient / Non-visit [facility] Work Phone: Start: 04-09-2024 End: 04-09-2024 ambulatory Miriam Barron MD Facility: [facility] Start: 02-24-2024 End: 02-24-2024 ambulatory [facility] Work Phone: Start: 02-24-2024 End: 02-24-2024 Patient encounter procedure [facility] Work Phone: Start: 02-22-2024 Non-patient / Non-visit [facility] Work Phone: Start: 12-27-2023 Non-patient / Non-visit [facility] Work Phone: Start: 12-20-2023 Patient encounter status [facility] Start: 12-20-2023 End: 12-20-2023 ambulatory [facility] Work Phone: Start: 12-20-2023 End: 12-20-2023 Patient encounter procedure [facility] Work Phone: Start: 09-26-2023 End: 09-26-2023 ambulatory Miriam Barron MD Facility: [facility] Start: 08-15-2023 End: 08-15-2023 ambulatory Andvalentine Barron MD Facility: [facility] Start: 08-08-2023 End: 08-08-2023 ambulatory Miriam Barron MD Facility: [facility] Start: 06-27-2023 End: 06-27-2023 ambulatory Miriam Barron MD Facility: [facility] Start: 06-06-2023 End: 06-06-2023 ambulatory Miriam Barron MD Facility: [facility] Start: 06-01-2023 End: 06-01-2023 ambulatory Robert Villasenor Other [facility] Other Start: 06-01-2023 Telephone encounter Robert Villasenor [facility] Start: 05-23-2023 End: 05-23-2023 ambulatory Miriam Barron MD Facility: [facility] Start: 05-13-2023 End: 05-13-2023 ambulatory Robert Villasenor Other [facility] Other Start: 05-13-2023 Telephone encounter Robert Ball [facility] Start: 05-09-2023 End: 05-09-2023 ambulatory Robert Ball Other [facility] Other Start: 05-09-2023 Telephone encounter Robert Ball [facility] Start: 05-04-2023 End: 05-04-2023 ambulatory Robert Ball Other [facility] Other Start: 05-04-2023 Telephone encounter Robert Ball [facility] Start: 05-02-2023 End: 05-02-2023 ambulatory Robert Ball Other [facility] Other Start: 05-02-2023 Telephone encounter Robert Ball [facility] Start: 04-29-2023 End: 04-29-2023 ambulatory Robert Ball Other [facility] Other Start: 04-29-2023 Office outpatient vi sit 15 minutes Robert Ball [facility] Start: 04-04-2023 End: 04-04-2023 ambulatory Robert Ball Other [facility] Other Start: 04-04-2023 Telephone encounter Robert Ball [facility] Start: 01-24-2023 End: 01-24-2023 ambulatory Robert Ball Other [facility] Other Start: 01-24-2023 Telephone encounter Robert Ball [facility] Start: 12-23-2022 End: 12-23-2022 ambulatory Robert Ball Other [facility] Other Start: 12-23-2022 Telephone encounter Robert Ball [facility] Start: 12-20-2022 End: 12-20-2022 ambulatory Robert Ball Other [facility] Other Start: 12-20-2022 Office outpatient vi sit 15 minutes Robert Hamilton [facility] Start: 12-17-2022 End: 12-17-2022 ambulatory Robert Villasenor Other [facility] Other Start: 12-17-2022 Telephone encounter Robert [facility] Start: 11-08-2022 End: 11-08-2022 ambulatory Robert Villasenor Other [facility] Other Start: 11-08-2022 Telephone encounter Robert Villasenor [facility] Start: 10-22-2022 End: 10-22-2022 ambulatory Robert Villasenor Other [facility] Other Start: 10-22-2022 Telephone encounter Robert Villasenor [facility] Start: 10-13-2022 End: 10-13-2022 ambulatory Robert Villasenor Other [facility] Other Start: 10-13-2022 Telephone encounter Robert Villasenor [facility] Start: 09-27-2022 End: 09-27-2022 ambulatory Robert Villasenor Other [facility] Other Start: 09-27-2022 Telephone encounter Robert [facility] Start: 08-23-2022 End: 08-24-[address] RISHI PARKER Facility:[facility] Start: 08-04-2022 End: 08-04-2022 ambulatory Robert Villasenor Other [facility] Other Start: 08-04-2022 Office outpatient vi sit 25 minutes Robert Villasenor [facility] Start: 04-03-2022 Encounter for genera l adult medical examination without abnormal findings DR ROBERT VILLASENOR [facility] Start: 03-30-2022 End: 03-31-[address] [...] Start: 07-03-2018 End: 07-03-2018 Patient encounter procedure [facility] Start: 06-20-2018 End: 06-20-2018 Evaluation and management of inpatient formerly [facility] Procedures Date Procedure Procedure Detail [...] 60 yrs+ (1 - 1-dose 75+ series) [facility] Start: 07-11-2025 GFR test (Diabetes, CKD 3-4, OR last GFR 15-59) GFR test (Diabetes, CKD 3-4, OR last GFR 15-59) [facility] Start: 11-23-2024 Influenza vaccination Flu vaccine (# 1) [facility] Start: 04-25-2024 Annual Wellness Visi t (Medicare Advantage) Annual Wellness Visit (Medicare Advantage) [facility] Start: 12-25-2023 COVID-19 Vaccine ( season) COVID-19 Vaccine ( season) [facility] Start: 2014 Screening for osteoporosis DEXA (modify frequency per FRAX score) [facility] Start: 2009 Pneumococcal 50+ yea rs Vaccine (1 of 1 - PCV) Pneumococcal 50+ years Vaccine (1 of 1 - PCV) [facility] Start: 2009 Shingles vaccine (1 of 2) Shingles vaccine (1 of 2) [facility] Start: 2004 Screening for malign ant neoplasm of colon [facility] Start: 1999 Screening for malign ant neoplasm of breast Breast cancer screen [facility] Start: 1994 Diabetes screen Diabetes screen [facility] Start: 1989 Screening for malign ant neoplasm of cervix [facility] Start: 1980 Screening for malign ant neoplasm of cervix Pap smear [facility] Start: 1978 DTaP/Tdap/Td vaccine (1 - Tdap) DTaP/Tdap/Td vaccine (1 - Tdap) [facility] Start: 1978 Pneumococcal 50+ yea rs Vaccine (1 of 2 - PCV) Pneumococcal 50+ years Vaccine (1 of 2 - PCV) [facility] Start: 1977 Glaucoma screening Diabetic retinal exam [facility] Start: 1977 Hepatitis C screening Hepatitis C sc reen [facility] Start: 1977 Urine screening for protein Diabetic Alb to Cr ratio (uACR) test [facility] Start: 1974 HIV screening HIV screen [facility] [employer] Start: 1971 Depression Screen Depression Screen [facility] Start: 1969 Diabetic foot examination Diabetic foot exam [facility] Start: 1969 Hemoglobin A1c measurement A1C test (Diabetic or Prediabetic) [facility] Start: 1969 Lipid panel Lipids [place] [facility] [employer] End: 07-15-2024 Basic metabolic 2000 panel - Serum or Plasma Basic Metabolic Panel Lab Routine Daily for 1 Weeks starting 07/09/2024 until 07/15/2024, 3 completed [facility] Comment on above: Daily for [address] arting 07/09/2024 until 07/15/2024, 3 completed Comprehensive metabo lic 2000 panel - Serum or Plasma [facility] Comprehensive metabo lic 1999 panel - Serum or Plasma [facility] Comprehensive metabo lic 1999 panel - Serum or Plasma [facility] Glucose [Mass/volume ] in Serum or Plasma POCT Glucose Point of Care Testing STAT As Needed until discontinued starting 07/06/2024 [facility] Comment on above: As Needed until disc ontinued starting 07/06/2024 Glucose [Mass/volume ] in Serum or Plasma POCT glucose Point of Care Testing Routine 4X Daily (AC & HS) until discontinued starting 07/07/2024, 18 completed [facility] Comment on above: 4X Daily (AC & HS) u ntil discontinued starting 07/07/2024, 18 completed Glucose [Mass/volume ] in Serum or Plasma POCT Glucose Point of Care Testing STAT As Needed until discontinued starting 07/10/2024 [employer] Comment on above: As Needed until disc ontinued starting 07/10/2024 End: 07-15-2024 Hemoglobin and Hematocrit Hemoglobin and Hematocrit Lab Routine Daily for 1 Weeks starting 07/09/2024 until 07/15/2024, 3 completed SiteMinder Comment on above: Daily for [address] arting 07/09/2024 until 07/15/2024, 3 completed MG Breast - bilatera l Diagnostic [facility] End: 11-23-2024 MR Knee - right WO contrast [facility] Comment on above: 1 Occurrences starti ng 11/23/2024 until 11/23/2024 MR Knee - right WO contrast [facility] Oxygen therapy [[facility]] Initiate Oxygen Therapy Protocol Respiratory Care Routine As Needed until discontinued starting 07/08/2024 SiteMinder Comment on above: As Needed until disc ontinued starting 07/08/2024 Spirometry panel Incentive jesse metry Respiratory Care Routine Every 2hr while awake until discontinued starting 07/06/2024 [employer] Work Phone: Comment on above: Every 2hr while awak e until discontinued starting 07/06/2024 Spirometry panel Incentive jesse metry Respiratory Care Routine Every 2hr while awake until discontinued starting 07/08/2024 SiteMinder Comment on above: Every 2hr while awak e until discontinued starting 07/08/2024 [facility] Payers Date Payer Category Payer Unknown [id number] 2023 Unknown 2022 Blue Cross Blue Shield [id number] 2019 Unknown [id number] 2015 Unknown [id number] 1959 Self-pay [id number] 1959 Unknown [id number] 2.16.840.1.332844.3.579.2.5 93 1959 Unknown [id number] 2.16.840.1.689272.3.579.2.5 93 1959 Unknown [id number] 2.16.840.1.333904.3.579.2.5 93 1959 Unknown [id number] 2.16.840.1.212152.3.579.2.5 93 1959 Unknown [id number] 2.16.840.1.159539.3.579.2.5 93 1959 Unknown [id number] 2.16.840.1.730917.3.579.2.5 93 1959 Unknown [id number] 2.16.840.1.218332.3.579.2.1 96 1959 Unknown [id number] 2.16.840.1.450376.3.579.2.1 96 1959 Unknown [id number] 2.16.840.1.689211.3.579.2.1 96 1959 Unknown [id number] 2.16.840.1.821518.3.579.2.1 96 1959 Unknown [id number] 2.16.840.1.920290.3.579.2.1 96 1959 Unknown [id number] 2.16.840.1.733096.3.579.2.1 96 1959 Unknown [id number] 2.16.840.1.440093.3.579.2.1 96 1959 Unknown [id number] 2.16.840.1.929859.3.579.2.7 27 1959 Unknown [id number] 2.16.840.1.242536.3.579.2.9 3 1959 Unknown [id number] 2.16.840.1.143881.3.579.2.1 74 Medicare Medicare [id number] Unknown [id number] 2.16.840.1.289923.3.579.2.5 93 Unknown MMO [id number] Unknown [facility] Health P lans MCR PFFS [id number] Social History Date Type Detail Facility Start: 07-06-2024 Sex Assigned At [facility] Other Start: 1960 Sex Assigned At Female [facility] Tobacco smoking stat us NHIS Unknown if ever smoked [facility] Work Phone: Start: 06-04-2012 End: 06-25-2024 Sex Female (finding) [facility] Start: 07-06-2024 End: 10-11-2024 Tobacco smoking status NHIS Never smoked tobacco [facility] Start: 07-06-2024 Tobacco use and exposure Smokeless tobacco non-user [facility] Start: 07-09-2024 Alcoholic beverage intake Lifetime non-drinker (finding) [employer] Start: 07-06-2024 History of Social function [employer] Has the electric, Yesmail s, oil, or water company threatened to shut off services in your home in past 12Mo No SiteMinder (I/We) worried eladio er (my/our) food would run out before (I/we) got money to buy more. Never true SiteMinder In the past 12 month s, has lack of transportation kept you from medical appointments or from getting medications? No [facility] Start: 1960 Sex assigned at Not on file [facility] Medical Equipment Procedure Code Equipment Code Equipment Original Text Equipment Identifier Dates Screw Spnl L45mm Dia6.5mm Post Thoracolumbosacral Co Chrom - [id number] Start: 07-08-2024 Screw Spnl L40mm Dia6.5mm Post Thoracolumbosacral Co Chrom - [id number] Start: 07-08-2024 Set Scr Spnl L6m m Dia5.5mm Ti Brk Off Svetlana W/ Detach Cdh - [id number] Start: 07-08-2024 Evan Spnl L35mm D ia5.5mm Ant Post Thoracolumbosacral Ti - [id number] Start: 07-08-2024 Clinical Notes 08-04-2022 to [...] preventive visit noneactive October 11, 2024 10:26am [facility] Work Phone: 1(713) 848-153403-19-2025 History of Present illness Narrative* Bhavani Anderson [...] Rosales, PT - 07/10/2024 10:18 AM EDT [facility] INPATIENT PHYSICAL THERAPY EVALUATION [facility] 7K - 7K-21/021-A Discharge Recommendations: [...] or urinary incontinence. 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 Literacy Teacher Goals Time Frame for Halfway Goals : NA due to short ELOS Following session, patient left in safe position with all fall risk precautions in place. Pt in bedfollowing session, all needs and call light in reach, alarm on. * America Waters OTA - 07/10/2024 8:30 AM EDT [facility] Occupational Therapy Daily Note Discharge Recommendations: Home with Home Health OT Equipment Recommendations: No Monitor need for LHAE. Time In: 0800 Time Out: 08 Timed Code Treatment Minutes: 28 Minutes Minutes: 28 Date: 07/10/2024 Patient Name: Carroll Fuentes, Gender: female [facility] : 1960 (64 y.o.) Referring Practitioner: Dank [...] or urinary incontinence. She was evaluated at [facility], she had an MRI of [...] injury in the past year?: Yes Active Hat Sprayer: Yes Occupation: Retired SUBJECTIVE: Patient seated in bedside chair upon arrival; agreeable to therapy this date. Patient pleasant and cooperative throughout session. PAIN: 10/02: Vitals: Vitals not assessed per clinical judgement, see nursing flowsheet COGNITION: WFL ADL: Grooming: Modified Independent. Hair care seated in bedside chair Upper Extremity Dressing: Minimal Assistance. Carroll/doff house robe Lower Extremity Dressing: Minimal Assistance. With hearing aid mechanic in order to carroll/doff hospital shorts with verbal/visual cues to complete, demonstrating good understanding. Footwear Management: Supervision, X 1, with verbal cues , and with increased time for completion. Utilized hearing aid mechanic/sock aid in order to doff/carroll B socks [...] Goals?: No Halfway Goals Time Frame for Literacy Teacher Goals : No LTGs d/t short estimated [...] Rosales, PT - 07/09/2024 2:49 PM EDT [facility] PHYSICAL THERAPY MISSED TREATMENT NOTE [facility] 7K Date: 07/09/2024 Patient Name: Carroll Fuentes : 1960 (64 y.o.) Gender: female REASON FOR MISSED TREATMENT: Missed Treat. Attempted x3 today. 1st attempt, pt with tech on BSC and then requesting to eat breakfast. 2nd attempt, OT with pt. 3rd attempt, casey saw operator in room to complete assessment. * Angela Dawkins, OT - 07/09/2024 1:44 PM EDT [facility] INPATIENT OCCUPATIONAL THERAPY [facility] 7K EVALUATION Discharge Recommendations: Continue [...] or urinary incontinence. She was evaluated at [facility], she had an MRI of [...] injury in the past year?: Yes Active Hat Sprayer: Yes Occupation: Retired VISION:Corrected HEARING: WFL COGNITION: [...] Inpatient Daily Activity Raw Score: 17 Modified [place]: Premorbid Functional Status: Not Applicable Current Functional [...] indep within home environment. Additional Goals?: No Literacy Teacher Goals Time Frame for Halfway Goals : [...] pain 6/10 at this time, medicated by INKER MACHINE 1840 pt resting, resp easy. VSS 1850 pt awakens to voice, states pain 5/10 and tolerable. VSS 1900 c/o pain 7/10, medicated with 50 mcg fentanyl 1905 no change in pain status, medicated with 50 mcg fentanyl 1910 pt resting, resp easy. VSS 1915 pt resting, resp easy. VSS 1925 pt meets criteria for discharge from pacu at this time. Pt transported to [facility] in stable condition * Kusum Conte RN [...] EDT Spiritual Health History and Assessment/Progress Note [facility] (P) Initial Encounter, , , Name: Carroll Fuentes Age: 64 y.o. Sex: female Language: Swedish Bahai: Samaritan Intractable back pain Date: 07/07/2024 Total Time Calculated: (P) 14 min Spiritual Assessment began in [facility] 7K Referral/Consult From: (P) Nurse [...] and how she loves everything about the cheondoism. Patient finds peace and hope in her liliane as a advent and desires to have sacrament of the sick by a racetrack steward, before her surgery tomorrow afternoon. I told the patient that I will let the spiritual care team know. Offered patient words of encouragement, quoted Scripture, and prayed with the patient, at her request. Patient expressed gratitude. Made patient aware of aluminum molding machine operator availability and support. Patient Interventions include: Facilitated expression of thoughts and feelings, Explored spiritual coping/struggle/distress, Affirmed coping skills/support systems, and Provided sacramental/religiousritual Family/Friends Interventions include: No family/friends present Patient Plan of Care: Contact Liliane community affairs director for support or sacramental needs Family/Friends Plan of Care: No family/friends present documented in this encounterBon [facility] Discharge instructions* Discharge Instructions* Bhavani Anderson [...] All vegetables, especially asparagus, [place] sprouts, broccoli, [place] sprouts, cabbage, carrots, cauliflower, celery, corn, greens, [...] taking more than one drug. This includes rpai-[id number] medication and herb or dietary supplements. Plan [...] possible side effects documented in this encounterBon [facility] NotePROCEDURE: XR LUMBAR SPINE 1 VW CLINICAL [...] loss of vertebral body height is seen. [id number] NotePROCEDURE: XR LUMBAR SPINE 1 VW CLINICAL [...] by: Sivakumar Betts MD Signed by: Sivakumar Btets MD 07/08/24 [facility] note* Diagnosis Onset Date Resolution Status [...] medicine non eactive July 04, 2024 2:57pm [facility] Work Phone: 1(502) 510-704903-03-2025 Evaluation note* Diagnosis Onset Date Resolution Status [...] h hyperglycemia acute July 04, 2024 2:57pm [facility] Work Phone: 1(538) 792-397503-03-2025 Evaluation note* Diagnosis Onset Date Resolution Status [...] 2024 9:25am Acute blood loss anemia acute [facility] 2024 10:08am Adverse effect of mixed sedatives acute July 18, 2024 10:08am Central stenosis of spinal canal acu te July 18, 2024 10:08am Herniated intervertebral dis c of lumbar spine acute July 18, 2024 10:08am Hypotension due to hypovolemia acute July 18, 2024 10:08am Type 2 diabetes mellitus wit h hyperglycemia acute July 18, 2024 10:08am Visual hallucinations acute Mar 2024 10:08am [facility] Work Phone: 1(415) 423-959303-03-2025 Evaluation note* Diagnosis Onset Date Resolution Status [...] 2024 9:25am Acute blood loss anemia acute [facility] 2024 10:08am Central stenosis of spinal canal acu te July 18, 2024 10:08am Herniated intervertebral dis c of lumbar spine acute July 18, 2024 10:08am Hypotension due to hypovolemia acute July 18, 2024 10:08am Type 2 diabetes mellitus wit h hyperglycemia acute July 18, 2024 10:08am Visual hallucinations acute [facility] 2024 10:08am [facility] Work Phone: 1(748) 348-683802-07-2024 Evaluation note* Encounter Date Diagnosis Assessment Notes Treatment Notes Treatment Clinical Notes May, Autoimmune thyroiditis (ICD-10 - E06.3) May, Elevated cholesterol (ICD-10 - E78.00) May, Type 2 diabetes mellitus with hyperglycemia, without long-term current use of insulin (ICD-10 - E11.65) May, Primary hypertension (ICD-10 - I10) May, Intractable chronic migraine without aura and without status migrainosus (ICD-10 - G43.719) [facility] Other 01-15-2024 Evaluation note* Encounter Date Diagnosis Assessment Notes Treatment Notes Treatment Clinical Notes Apr, Intractable chronic migraine without aura and without status migrainosus (ICD-10 - G43.719) [facility] Other 01-08-2024 Evaluation note* Encounter Date Diagnosis Assessment Notes Treatment Notes Treatment Clinical Notes Apr, Intractable chronic migraine without aura and without status migrainosus (ICD-10 - G43.719) [facility] Other 01-05-2024 Evaluation note* Encounter Date Diagnosis [...] Begin Amitriptyline Stop Tizanidine. 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 May want to cut back on Zanaflex. [...] Pain in left shoulder (ICD-10 - M25.512) [facility] Other 06-30-2023 Evaluation note* Encounter Date Diagnosis Assessment Notes Treatment Notes Treatment Clinical Notes Sep, Type 2 diabetes mellitus with hyperglycemia, without long-term current use of insulin (ICD-10 - E11.65) [facility] Other 06-05-2023 Evaluation note* Encounter Date Diagnosis Assessment Notes Treatment Notes Treatment Clinical Notes Sep, Candidiasis, intertriginous (ICD-10 - B37.2) [facility] Other 04-12-2023 Evaluation note* Encounter Date Diagnosis [...] use, the patient reduces the risk for CA, CVA, HTN, cardiac dysrhythmias and sudden cardiac [...] Jul, Other specified hypothyroidism (ICD-10 - E03.8) [facility] Other Evaluation noteNo InformationNortJefferson Health [facility] Other Evaluation noteNo assessment information available [facility] Work Phone: Evaluation note* Diagnosis Onset Date Resolution Status Cervical pain acute Cervical spondylosis acute Cervical pain acute Cervical spondylosis acute Painful lumpy right breast a cute [facility] Work Phone: Evaluation note* Diagnosis Intractable back pain- Primary Backache, unspecified Spinal stenosis of lumbar region with neurogenic claudication Spinal stenosis, lumbar region, with neurogenic claudication Primary hypertension Unspecified essential hypertension Type 2 diabetes mellitus, without long-term current use of insulin (HCC) documented in this encounter [facility] note* Diagnosis Osteoarthritis of right knee, unspecified osteoarthritis type documented in this encounter [facility] general Narrative - Reported* Type Description [...] LEFT HEART CATHETERIZATION 2015 Hospitalization History SEE [facility] Other History general Narrative - Reported* Type [...] breast Medical History Cervical spondylosis Medical History DAAN (generalized anxiety disorde r) Medical History Leukopenia Surgical History EGD Surgical History COLONOSCOPY Surgical History LAMINOTOMY AND FORAMINOTOMY,SPI NE,LUMBAR Surgical History ANTERIOR CERVICAL DISCECTOMY AN D FUSION Surgical History GET/BSO Surgical History THYROIDECTOMY 10/1990 Surgical History LEFT HEART CATHETERIZATION 2015 Surgical History Right knee arthroscopy 10/2022 Hospitalization History SEE [facility] Other Reason for referral (narrative)* Reason Evaluation of right knee pain Diagnosis 1 Strain of right knee , subsequent encounter (D16.601K) Referral Organization [facility] Hamilton roe Referring Provider First Name Robert Referring Provider Last Name Hamilton Referring Provider Specialty Internal Me yoni Referred Provider Rishi Parker Jr Referred Provider Specialty Orthopedic S urgery Referral Priority Routine [facility] Other Reason for referral (narrative)* Reason Referral for neck pa in Diagnosis 1 Cervicalgia (M54.2) Diagnosis 2 Cervical spondylosis (M47.812) Referral Organization [facility] Odette roe Referring Provider First Name Robert Referring Provider Last Name Hamilton Referring Provider Specialty Internal Me dicine Referred Organization [facility] Referred Address [address] [place], [place],[address] Referred Provider Specialty Pain Medicin e Referral Priority Routine General Notes Patient has hx of ce rvical discectomy and fusion and presented w/ persistent neck pain, which radiated upwards causing a headache. She is being referred for treatment with the pain clinic. Clinical Notes Include MRI [facility] Other Reaqhs for referral (narrative)No reason for referral information availableC[facility] Work Phone: Reason for visit Narrative* Auth/Cert Specialty Diagnoses / Procedures Referred By Jass adams Referred To Contact Diagnoses Intractable back pain large disc herniation Jose Sharif MD [address] [place] [address] Phone: tel: fax: SiteMinder [address] [place] [address] Referral ID Status Reason Start Date Expiration Date Visits Re quested Visits Authorized [id number] 1 1 SiteMinderReason for visit Narrative* Imaging (Routine) - Closed Specialty Diagnoses / Procedures Referred By Jass adams Referred To Contact Radiology Diagnoses Osteoarthritis of right knee, unspecified osteoarthritis type Procedures MRI KNEE RIGHT WO CONTRAST Tomás Helton, DO [address] [place] [address] Phone: tel: fax: Referral ID Status Reason Start Date Expiration Date Visits Re quested Visits Authorized [id number] Closed 11/14/2024 11/14/2025 1 1 SiteMinder Summary Purpose Family History No Family History [...] on File Type Date Recorded 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 ACP-Advance Directive 07/13/2024 10:35 PM [...] 2:57pm Type 2 diabetes mellitus with hyperglyce [facility] July 04, 2024 2:57pm Acute [...] 10:08am Type 2 diabetes mellitus with hyperglyce [facility] July 18, 2024 10:08am Visual hallucinations July [...] section and content) DATE CREATED AUTHOR 06/20/2018 [facility] DATE CREATED AUTHOR AUTHOR'S ORGANIZ ATION 07/04/2018 [facility] DATE CREATED AUTHOR AUTHOR'S ORGANIZ ATION 09/18/2020 [facility] DATE CREATED AUTHOR AUTHOR'S ORGANIZ ATION 08/27/2022 [facility] DATE CREATED AUTHOR AUTHOR'S ORGANIZ ATION 04/18/2024 [facility] DATE CREATED AUTHOR AUTHOR'S ORGANIZ ATION 06/23/2024 [facility] DATE CREATED AUTHOR AUTHOR'S ORGANIZ ATION 08/10/2024 [facility] DATE CREATED AUTHOR AUTHOR'S [...] Care Provider Active Start: October 13, 2024 Robret Villasenor DO Attending Provider Active Sta rt: [...] July 04, 2024 End: July 04, 2024 Site Technician Relationship Specialty Start Date End Date Robert Villasenor DO [address] [place] [address] PCP - General Internal Medicine 07/06/24 Team [...] July 25, 2024 End: July 25, 2024 Site Technician Relationship Specialty Start Date End Date Robert Villasenor DO [address] [place] [address] PCP - General Internal Medicine 07/06/24 Goals [...] Provider: Chrissy Cuellar RN)222 (Stopped - Provider: Chrissy Cuellar RN) sodium [...] for injection by adding 1 mL of material movers-supplied sterile diluent or sterile water for injection [...] Villagomez, FLETCHER)2130 (See Alternative - Provider: Sommer Alacla RN) 0134 (Given - Provider: Sommer Alcala [...] BE BASED ON THE PRIMARY CLINICAL RECORDS. [employer] provides no warranty or guarantee of the accuracy or completeness of information in this document.
--- NOTE | 2025-01-07 06:48 | MR_ITS ---
The [address] [address] Patient Name: CARROLL HARDEN MRN: [id number] date: 1960 Sex: F Assigned Patient Location: MRI Current Patient Location: MRI Accession/Order Number: [id number] Exam Date: 01/07/2025 06:55 Report Date: 01/07/2025 09:27 At the request of: DILEEP LUNA MD Procedure: MR lumbar spine wo con MRI LUMBAR SPINE WITHOUT CONTRAST COMPARISON: MRI 07/06/2024: CT 07/24/2024 and plain films 07/27/2024 CLINICAL DATA: Low back pain with right sciatica following fall one month ago. Previous lumbar surgery. Multiecho imaging in the axial and sagittal plane was performed without contrast. Minor wedge deformity is again seen at T11. There are no acute lumbar compression fractures or marrow edema. There is still slight anterolisthesis of L4 on L5. There is laminectomy and fusion with posterior rods and pedicle screws L4-5 which occurred between the comparison MRI and CT studies. There is some associated susceptibility artifact. Laminectomy is also seen at L3. No paraspinal soft tissue abnormalities are identified. At T12-L1 and L1-2, there is no disc disease or stenosis. At L2-3, there is slight loss of disc height and disc desiccation. There is mild annular disc bulging as well as mild facet and ligamentous hypertrophy. Mild thecal sac effacement and inferior foraminal encroachment is again noted. At L3-4, there is slight loss of disc height and disc desiccation. There is still mild annular disc bulging with continued potential asymmetric protrusion at the right lateral recess/foramen. The disc fragment posterior to L3 on the right at the time of the prior MRI is no longer seen. There is no significant thecal sac deformation following laminectomy. Mild to moderate left and moderate to severe right foraminal encroachment is still present. At L4-5, there is slight loss of disc height and disc desiccation. Minor annular disc bulging is present. There is no significant deformation of the thecal sac. There is improvement of foraminal stenosis following surgery however there is still mild bony foraminal encroachment on the left. At the lumbosacral junction, the disc is within normal limits for height and signal intensity. No developing disc bulge or herniation is seen. No stenosis is identified. MR/MR lumbar spine wo con IMPRESSION: LOWER LUMBAR LAMINECTOMY AND FUSION. MILD RESIDUAL CENTRAL AND FORAMINAL STENOSIS AT L2-3. RESIDUAL FORAMINAL STENOSIS AT L3-4, GREATER ON THE RIGHT. MILD RESIDUAL BONY FORAMINAL ENCROACHMENT AT L4-5. Impression dictated by: Frannie Armenta M.D. 01/07/2025 9:27 AM Dictation Location: [place] [address] Electronically authenticated by: [id number] Y Date: 01/07/2025 09:27
== END 2025-01-07 06:44 | disposition home or self-care (01) ==
LOC: MRI 06:44
PROVIDERS: PCP Internal Medicine; Visit Provider Orthopaedic Surgery Orthopaedic Surgery of the Spine
DX: M54.31 Sciatica, right side (principal); Z47.89 Encounter for other orthopedic aftercare
CPT/HCPCS: 72148

== ENCOUNTER 2025-01-16 07:59 | Outpatient (OUT) | payer OTHER, SELFPAY ==
--- OUTSIDE RECORDS SUMMARY | 2025-01-16 08:05 | XMS_ITS | CCD ---
Author Organization [facility] [employer] [facility] Care Team Providers Care Compressor Mechanic Name Role Phone JENNA GARSIA Admitting Unavailable [...] Unavailable Hamilton STOCKTON Robert Primary Care Provider [phone] SHIRA, OLUREMI A Admitting Unavailable SHIRA, OLUREMI A Attending Unavailable TERA TRAN Referring Unavailable HAMILTON ROBERT Primary Care Unavailable ELOISE VELIZ Consulting Unavailable Hamilton STOCKTON Robert Primary Care Provider [phone] Hamilton Robert Attending Provider [phone] HAMILTON ROBERT Primary Care Unavailable TOMÁS HELTON Referring Unavailable TOMÁS HELTON Attending Unavailable Allergies Allergy Classification Reported Allergen(s) Allergy Type Date of Onset Reaction(s) Facility (3 sources) Contrast media; Translations: [CONTRAST DYE] Propensity to adverse reactions to drug (disorder) 09-30-19 11 [facility] Repository (2 sources) HYDROmorphone; Translations: [HYDROMORPHONE (BULK)] Drug Allergy 08-17-19 17 [facility] Repository (20 sources) Latex; Translations: [LATEX] Propensity to adverse reactions to drug (disorder) 09-30-19 11 Hives [facility] Repository (2 sources) Meperidine; Translations: [MEPERIDINE (PF)] Drug Allergy 09-30-19 11 [facility] Repository (2 sources) Povidone-Iodine; Translations: [POVIDONE-IODINE] Drug Allergy 10-21-19 17 [facility] Repository (2 sources) SUMAtriptan; Translations: [SUMATRIPTAN SUCCINATE] Drug Allergy 09-30-19 11 [facility] Repository (2 sources) INFLUENZA VACCINE TRI-SP 09-10; Translations: [INFLUENZA VACCINE TRI-SP 09-10] Propensity to adverse reactions to drug (disorder) 09-30-19 11 [facility] Repository (3 sources) DHE; Translations: [DHE] Propensity to adverse reactions to drug (disorder) 10-24-19 13 [facility] Repository (20 sources) HYDROmorphone Drug Allergy 12-20-19 24 Unknown, Unknown Reaction [facility] (20 sources) Iodine; Translations: [iodine] Drug Allergy 10-24-19 13 Unknown, Unknown Reaction [facility] Repository (20 sources) Meperidine Drug Allergy 12-20-19 24 Unknown, Unknown Reaction [facility] (20 sources) SUMAtriptan Drug Allergy 12-20-19 24 Hives [facility] (20 sources) Fluad Drug allergy 12-20-19 24 Unknown, Unknown Reaction [facility] (19 sources) DHEA Drug allergy 07-07-19 25 Anaphylaxis [facility] [employer] Other (2 sources) HYDROmorphone; Translations: [Dilaudid] Drug Allergy 10-24-19 13 [facility] Repository (1 source) Meperidine Drug Allergy 10-24-19 13 [facility] Repository (2 sources) Plasmin; Translations: [Imitrex] Drug Allergy 10-24-19 13 [facility] Repository (12 sources) influenza A virus (H1N1) antigen / influenza A virus (H3N2) antigen / influenza B virus antigen Drug Allergy 11-21-19 14 Comment:FLU VACCINE [facility] [employer] Other (12 sources) Contraindication to Flu Injection Propensity to adverse reactions 03-07-20 14 Comment:advers e rxn/side effects [facility] [employer] Other (3 sources) patient allergy list reviewed by nurse or physicia Propensity to adverse reactions 12-22-19 14 Comment:Done [facility] [employer] [facility] [employer] Other (8 sources) Calcium Drug Allergy 12-20-19 24 Unknown Reaction [facility] (8 sources) Calcium Carbonate Drug Allergy 12-20-19 24 Unknown Reaction [facility] (8 sources) prasterone (DHEA) Allergy to substance 12-20-19 24 Unknown Reaction [facility] (8 sources) Fluad Quadrivalent Allergy to substance 04-29-19 24 Comment:FLU VACCINE [facility] Comment on above: Onset Date: 11/21/19 14 (1 source) Meperidine; Translations: [Demerol HCl] Drug Allergy [facility] Repository (1 source) flu vaccines; Translations: [flu vaccines] Propensity to adverse reactions (disorder) [facility] Repository (2 sources) Iodine Strong Propensity to adverse reactions to drug 07-07-19 Hives [facility] [employer] [facility] (2 sources) Meperidine Drug Allergy 07-07-19 Other (See Comments) [facility] Medications Current Medications Medication Drug Class(es) [...] Start: 09-30-2022 take 3 tablets by [facility] at bedtime clonazePAM 0.5 MG TAKE 3 TABLETS BY MOUTH AT BEDTIME for 30 days Sep, Active take [facility] as needed clonazePAM (KLONOPIN) [...] injection by adding 1 mL of environmental scientist-supplied sterile diluent or sterile water for injection [...] therapy Start: 12-20-2023 take 1 capsule by [facility] once daily Magnesium Aspart,Citrate,Oxide 400 mg magnesium capsule Active 400 MG PO Daily December 20, 2023 12:00am Start: 12-20-2023 take 1 capsule by [facility] once daily Magnesium Aspart,Citrate,Oxide 400 mg [...] disintegrating tablet 4 mg polyethylene glycol 3350 08700 mg powder for oral solution (1 source) [...] every two hours as needed for headache Maxalt-FIREBREAK CUTTER 10 MG 1 tablet Orally PRN headache, [...] 14, 2024 7:50pm 20 ml albumin human, assisted 250 mg/ml injection (1 source) Human Serum [...] Start: 07-08-2024 take 10 mg rectal ro kotlik once daily as needed for constipation 10 [...] Post-op docusate sodium 50 mg / sennosides, assisted 8.6 mg oral tablet (1 source) Start: [...] 20 mL/lumen, Post-[place] [address] mg powder for oral suspension (1 source) [...] 5:11pm take 1/2 to 1 tablet at [facility] Start: 06-17-2023 End: 12-16-2023 take 0.5 tablet [...] Isreal Garcia DO 12/01/24 Final result Normal [facility] Basophils Auto (Bld) [#/Vol] Ordered By: Robert Villasenor on 10-13-2024 Basophils (Bld) [#/Vol] 0.0 10 3/uL 0.0-0.1 [facility] Basophils/100 WBC Auto (Bld) Ordered By: Robert Villasenor on 10-13-2024 Basophils/100 WBC (Bld) 0.6 % 0.2-2.0 [facility] Cholesterol in LDL Calc [Mas s/Vol]Ordered By: Robert Villasenor on 10-13-2024 Cholesterol in LDL [Mass/Vol] 77.0 mg/dL [facility] Comment on above: <100 mg/dl [id number] 0-129 mg/dl NEAR OR ABOVE [id number] mg/dl BORDERLINE [id number] mg/dl HIGH>190 mg/dl VERY HIGH Cholesterol in VLDL Calc [Ma ss/Vol]Ordered By: Robert Villasenor on 10-13-2024 Cholesterol in VLDL [Mass/Vol] 30.8 mg/dL [facility] Eosinophils/100 WBC Auto (Bl d)Ordered By: Robert Villasenor on 10-13-2024 Eosinophils/100 WBC (Bld) 4.5 % 0.9-7.0 [facility] Erythrocyte distribution wid th Auto (RBC) [Ratio]Ordered By: Robert Villasenor on 10-13-2024 Erythrocyte distribution width (RBC) [Ratio] 12.6 % 11.0-15.0 [facility] Estimated glomerular filtrat ion rate (GFR) non- AmericanOrdered By: Robert Villasenor on 10-13-2024 GFR/1.73 sq M.predicted among non-blacks MDRD (S/P/Bld) [Vol rate/Area] 50 mL/min/{1.73_m2} Low >=60 mL/min/1.73 m 2 [facility] Globulin Calc (S) [Mass/Vol] Ordered By: Robert Villasenor on 10-13-2024 Globulin (S) [Mass/Vol] 3.6 g/dL [facility] Hematocrit Auto (Bld) [Volum e fraction]Ordered By: Robert Villsaenor on 10-13-2024 Hematocrit (Bld) [Volume fraction] 37.7 % 36.0-48.0 [facility] Hemoglobin [Mass/volume] in BloodOrdered By: oRbert Villasenor on 10-13-2024 Hemoglobin (Bld) [Mass/Vol] 12.0 g/dL 12.0-16.0 [facility] Laboratory - Chemistry and C hemistry - challengeOrdered By: Robert Villasenor on 10-13-2024 Albumin [Mass/Vol] 3.6 g/dL 3.4-5.0 [facility] ALP [Catalytic activity/Vol] 91 U/L 46-116 [facility] ALT [Catalytic activity/Vol] 29 U/L 14-59 [facility] AST [Catalytic activity/Vol] 23 U/L 15-37 [facility] Bilirubin [Mass/Vol] 0.6 mg/dL 0.2-1.0 [facility] Calcium [Mass/Vol] 8.9 mg/dL 8.5-10.1 [facility] Chloride [Moles/Vol] 103 mmol/L 98-107 [facility] Cholesterol [Mass/Vol] 161 mg/dL <=200 [facility] Cholesterol in HDL [Mass/Vol] 54 mg/dL 40-60 [facility] Comment on above: > or =60 mg/dl - LOW CARDIOVASCULAR RISK<40 mg/dl - HIGH CARDIOVASCULAR RISK CO2 [Moles/Vol] 26.8 mmol/L 21.0-32.0 [facility] Creatinine [Mass/Vol] 1.09 mg/dL High 0.55-1.02 [facility] GFR/1.73 sq M.predicted MDRD (S/P/Bld) [Vol rate/Area] mL/min/{1.73_m2} >=60 mL/min/1.73 m 2 [facility] Glucose [Mass/Vol] 75 mg/dL 74-106 [facility] Potassium [Moles/Vol] 4.3 mmol/L 3.5-5.1 [facility] Protein [Mass/Vol] 7.2 g/dL 6.4-8.2 [facility] Sodium [Moles/Vol] 141 mmol/L 136-145 [facility] Triglyceride [Mass/Vol] 154 mg/dL High <=150 [facility] Urea nitrogen [Mass/Vol] 28.0 mg/dL High 7.0-18.0 [facility] Urea nitrogen/Creatinine [Mass ratio] 25.7 mg/mg [facility] Laboratory - Hematology and Cell countsOrdered By: Robert Villasenor on 10-13-2024 Immature granulocytes/100 WBC (Bld) 0.3 % 0.0-0.5 [facility] Leukocytes [#/volume] correc chip for nucleated erythrocytes in Blood by Automated counOrdered By: Robert Villasenor on 10-13-2024 WBC corrected for nucl RBC Auto (Bld) [#/Vol] 6.4 10 3/uL 4.0-11.0 [facility] Lymphocytes Auto (Bld) [#/Vo l]Ordered By: Robert Villasenor on 10-13-2024 Lymphocytes (Bld) [#/Vol] 2.7 10 3/uL 1.2-3.8 [facility] Lymphocytes/100 WBC Auto (Bl d)Ordered By: Robert Villasenor on 10-13-2024 Lymphocytes/100 WBC (Bld) 42.6 % 20.5-60.0 [facility] MCH Auto (RBC) [Entitic mass ]Ordered By: Robert Villasenor on 10-13-2024 MCH (RBC) [Entitic mass] 26.1 pg Low 26.7-34.0 [facility] MCHC Auto (RBC) [Mass/Vol]Or dered By: Robert Villasenor on 10-13-2024 MCHC (RBC) [Mass/Vol] 31.8 g/dL 29.9-35.2 [facility] MCV Auto (RBC) [Entitic vol] Ordered By: Robert Villasenor on 10-13-2024 MCV (RBC) [Entitic vol] 82.0 fL 81.0-99.0 [facility] Microalbumin [Mass/volume] i n UrineOrdered By: Robert Villasenor on 10-13-2024 Albumin DL <= 20 mg/L (U) [Mass/Vol] mg/dL <=30.0 [facility] Monocytes Auto (Bld) [#/Vol] Ordered By: Robert Villasenor on 10-13-2024 Monocytes (Bld) [#/Vol] 0.5 10 3/uL 0.3-0.8 [facility] Monocytes/100 WBC Auto (Bld) Ordered By: Robert Villasenor on 10-13-2024 Monocytes/100 WBC (Bld) 8.5 % 1.7-12.0 [facility] Neutrophils Auto (Bld) [#/Vo l]Ordered By: Robert Villasenor on 10-13-2024 Neutrophils (Bld) [#/Vol] 2.8 10 3/uL 1.4-6.5 [facility] Neutrophils/100 WBC Auto (Bl d)Ordered By: Robert Villasenor on 10-13-2024 Neutrophils/100 WBC (Bld) 43.5 % 43.0-75.0 [facility] No Panel InformationOrdered By: Robert Villasenor on 10-13-2024 Eosinophils # (Auto) 0.3 10 3/uL 0.0-0.7 [facility] Immature Granulocyte # (Auto) 0.02 10 3/uL 0.00-0.03 [facility] Urine Random Creatinine 72.31 mg/dL 20.00-300.0 0 [facility] Platelet mean volume Auto (B ld) [Entitic vol]Ordered By: Robert Villasenor on 10-13-2024 Platelet mean volume (Bld) [Entitic vol] 9.8 fL 9.5-13.5 [facility] Platelets Auto (Bld) [#/Vol] Ordered By: Robert Villasenor on 10-13-2024 Platelets (Bld) [#/Vol] 227 10 3/uL 150-450 [facility] RBC Auto (Bld) [#/Vol]Ordere d By: Robert Villasenor on 10-13-2024 RBC (Bld) [#/Vol] 4.60 10 6/uL 4.20-5.40 [facility] Serum or plasma albumin/glob ulin mass ratioOrdered By: Robert Villasenor on 10-13-2024 Albumin/Globulin [Mass ratio] 1.0 {ratio} [facility] Serum or plasma anion gap de terminationOrdered By: Robert Villasenor on 10-13-2024 Anion gap [Moles/Vol] 15.5 mmol/[facility] Serum or plasma total choles terol/high density lipoprotein (HDL) cholesterol mass ratOrdered By: Robert Villasenor on 10-13-2024 Cholesterol.total/Chol esterol in HDL [Mass ratio] 3.0 {ratio} [facility] Comment on above: 3.3 - 4.4 LOW RISK4. 4 - 7.1 AVERAGE RISK7.1 - 11.0 MODERATE RISK>11.0 HIGH RISK Basophils Auto (Bld) [#/Vol] on 09-21-2024 Basophils (Bld) [#/Vol] 0.0 10 3/uL 0.0-0.1 [facility] Basophils/100 WBC Auto (Bld) on 09-21-2024 Basophils/100 WBC (Bld) 0.6 % 0.2-2.0 [facility] Cholesterol in LDL Calc [Mas s/Vol]on 09-21-2024 Cholesterol in LDL [Mass/Vol] 57.0 mg/dL [facility] Comment on above: <100 mg/dl [id number] 0-129 mg/dl NEAR OR ABOVE [id number] mg/dl BORDERLINE [id number] mg/dl HIGH>190 mg/dl VERY HIGH Cholesterol in VLDL Calc [Ma ss/Vol]on 09-21-2024 Cholesterol in VLDL [Mass/Vol] 37.6 mg/dL [facility] Eosinophils/100 WBC Auto (Bl d)on 09-21-2024 Eosinophils/100 WBC (Bld) 14.7 % High 0.9-7.0 [facility] Erythrocyte distribution wid th Auto (RBC) [Ratio]on 09-21-2024 Erythrocyte distribution width (RBC) [Ratio] 11.9 % 11.0-15.0 [facility] Estimated glomerular filtrat ion rate (GFR) non- Americanon 09-21-2024 GFR/1.73 sq M.predicted among non-blacks MDRD (S/P/Bld) [Vol rate/Area] 54 mL/min/{1.73_m2} Low >=60 mL/min/1.73 m 2 [facility] Globulin Calc (S) [Mass/Vol] on 09-21-2024 Globulin (S) [Mass/Vol] 3.7 g/dL [facility] Hematocrit Auto (Bld) [Volum e fraction]on 09-21-2024 Hematocrit (Bld) [Volume fraction] 35.4 % Low 36.0-48.0 [facility] Hemoglobin [Mass/volume] in Bloodon 09-21-2024 Hemoglobin (Bld) [Mass/Vol] 11.0 g/dL Low 12.0-16.0 [facility] Laboratory - Chemistry and C hemistry - challengeon 09-21-2024 Albumin [Mass/Vol] 3.2 g/dL Low 3.4-5.0 [facility] ALP [Catalytic activity/Vol] 89 U/L 46-116 [facility] ALT [Catalytic activity/Vol] 29 U/L 14-59 [facility] AST [Catalytic activity/Vol] 22 U/L 15-37 [facility] Bilirubin [Mass/Vol] 0.4 mg/dL 0.2-1.0 [facility] Calcium [Mass/Vol] 9.2 mg/dL 8.5-10.1 [facility] Chloride [Moles/Vol] 105 mmol/L 98-107 [facility] Cholesterol [Mass/Vol] 136 mg/dL <=200 [facility] Cholesterol in HDL [Mass/Vol] 42 mg/dL 40-60 [facility] Comment on above: > or =60 mg/dl - LOW CARDIOVASCULAR RISK<40 mg/dl - HIGH CARDIOVASCULAR RISK CO2 [Moles/Vol] 28.3 mmol/L 21.0-32.0 [facility] Creatinine [Mass/Vol] 1.02 mg/dL 0.55-1.02 [facility] GFR/1.73 sq M.predicted MDRD (S/P/Bld) [Vol rate/Area] mL/min/{1.73_m2} >=60 mL/min/1.73 m 2 [facility] Glucose [Mass/Vol] 119 mg/dL High 74-106 [facility] Potassium [Moles/Vol] 5.3 mmol/L High 3.5-5.1 [facility] Protein [Mass/Vol] 6.9 g/dL 6.4-8.2 [facility] Sodium [Moles/Vol] 143 mmol/L 136-145 [facility] Triglyceride [Mass/Vol] 188 mg/dL High <=150 [facility] TSH Qn 0.633 m[IU]/L 0.358-3.740 [facility] Urea nitrogen [Mass/Vol] 31.0 mg/dL High 7.0-18.0 [facility] Urea nitrogen/Creatinine [Mass ratio] 30.4 mg/mg [facility] Laboratory - Hematology and Cell countson 09-21-2024 Immature granulocytes/100 WBC (Bld) 0.2 % 0.0-0.5 [facility] Leukocytes [#/volume] correc chip for nucleated erythrocytes in Blood by Automated counon 09-21-2024 WBC corrected for nucl RBC Auto (Bld) [#/Vol] 5.3 10 3/uL 4.0-11.0 [facility] Lymphocytes Auto (Bld) [#/Vo l]on 09-21-2024 Lymphocytes (Bld) [#/Vol] 2.1 10 3/uL 1.2-3.8 [facility] Lymphocytes/100 WBC Auto (Bl d)on 09-21-2024 Lymphocytes/100 WBC (Bld) 39.2 % 20.5-60.0 [facility] MCH Auto (RBC) [Entitic mass ]on 09-21-2024 MCH (RBC) [Entitic mass] 26.1 pg Low 26.7-34.0 [facility] MCHC Auto (RBC) [Mass/Vol]on 09-21-2024 MCHC (RBC) [Mass/Vol] 31.1 g/dL 29.9-35.2 [facility] MCV Auto (RBC) [Entitic vol] on 09-21-2024 MCV (RBC) [Entitic vol] 83.9 fL 81.0-99.0 [facility] Monocytes Auto (Bld) [#/Vol] on 09-21-2024 Monocytes (Bld) [#/Vol] 0.4 10 3/uL 0.3-0.8 [facility] Monocytes/100 WBC Auto (Bld) on 09-21-2024 Monocytes/100 WBC (Bld) 8.4 % 1.7-12.0 [facility] Neutrophils Auto (Bld) [#/Vo l]on 09-21-2024 Neutrophils (Bld) [#/Vol] 1.9 10 3/uL 1.4-6.5 [facility] Neutrophils/100 WBC Auto (Bl d)on 09-21-2024 Neutrophils/100 WBC (Bld) 36.9 % Low 43.0-75.0 [facility] No Panel Informationon 09-21 Eosinophils # (Auto) 0.8 10 3/uL High 0.0-0.7 [facility] Immature Granulocyte # (Auto) 0.01 10 3/uL 0.00-0.03 [facility] Platelet mean volume Auto (B ld) [Entitic vol]on 09-21-2024 Platelet mean volume (Bld) [Entitic vol] 9.9 fL 9.5-13.5 [facility] Platelets Auto (Bld) [#/Vol] on 09-21-2024 Platelets (Bld) [#/Vol] 218 10 3/uL 150-450 [facility] RBC Auto (Bld) [#/Vol]on RBC (Bld) [#/Vol] 4.22 10 6/uL 4.20-5.40 [facility] Serum or plasma albumin/glob ulin mass ratioon 09-21-2024 Albumin/Globulin [Mass ratio] 0.9 {ratio} [facility] Serum or plasma anion gap de terminationon 09-21-2024 Anion gap [Moles/Vol] 15.0 mmol[facility] Serum or plasma total choles terol/high density lipoprotein (HDL) cholesterol mass desiree 09-21-2024 Cholesterol.total/Chol esterol in HDL [Mass ratio] 3.2 {ratio} [facility] Comment on above: 3.3 - 4.4 LOW RISK4. 4 - 7.1 AVERAGE RISK7.1 - 11.0 MODERATE RISK>11.0 HIGH RISK Glucose mean value [Mass/vol ume] in Blood Estimated from glycated hemoglobinon 09-14-2024 Average glucose Estimated from glycated hemoglobin (Bld) [Mass/Vol] 146 mg/dL [facility] Hemoglobin A1c percentageon 09-14-2024 HbA1c (Bld) [Mass fraction] 6.7 % High 4.5-6.2 [facility] Comment on above: ADA RECOMMENDED LIMI T 4.0 - 6.0ADA THERAPEUTIC TARGET < 7.0ACTION SUGGESTED> 7.0 Microalbumin [Mass/volume] i n Urineon 09-14-2024 Albumin DL <= 20 mg/L (U) [Mass/Vol] 3.2 mg/dL <=30.0 [facility] No Panel Informationon 09-14 Urine Random Creatinine 260.08 mg/dL 20.00-300.0 0 [facility] Urine microalbumin/creatinin e mass ratioon 09-14-2024 Albumin/Creatinine DL <= 20 mg/L (U) [Mass ratio] 12.3 mg/g 0.0-29.9 [facility] Comment on above: NO MICROALBUMINURIA 0-29 MG/GCLINICAL MICROALBUMINURIA 30-300 MG/GMACROALBUMINURIA >300 MG/G Basophils Auto (Bld) [#/Vol] on 07-18-2024 Basophils (Bld) [#/Vol] Automated basophil count 0.0-0.1 [facility] Basophils/100 WBC Auto (Bld) on 07-18-2024 Basophils/100 WBC (Bld) Automated basophil % 0.2-2.0 [facility] Eosinophils/100 WBC Auto (Bl d)on 07-18-2024 Eosinophils/100 WBC (Bld) Automated eosinophil % 0.9-7.0 [facility] Erythrocyte distribution wid th Auto (RBC) [Ratio]on 07-18-2024 Erythrocyte distribution width (RBC) [Ratio] Erythrocyte distribution width [Ratio] by Automated count 11.0-15.0 [facility] Hematocrit Auto (Bld) [Volum e fraction]on 07-18-2024 Hematocrit (Bld) [Volume fraction] Hematocrit [Volume Fraction] of Blood by Automated count Low 36.0-48.0 [facility] Hemoglobin [Mass/volume] in Bloodon 07-18-2024 Hemoglobin (Bld) [Mass/Vol] Hemoglobin [Mass/volume] in Blood Low 12.0-16.0 [facility] Laboratory - Hematology and Cell countson 07-18-2024 Immature granulocytes/100 WBC (Bld) 0.6 % High 0.0-0.5 [facility] Leukocytes [#/volume] correc chip for nucleated erythrocytes in Blood by Automated counon 07-18-2024 WBC corrected for nucl RBC Auto (Bld) [#/Vol] Leukocytes [#/volume] corrected for nucleated erythrocytes in Blood by Automated coun 4.0-11.0 [facility] Lymphocytes Auto (Bld) [#/Vo l]on 07-18-2024 Lymphocytes (Bld) [#/Vol] Lymphocytes [#/volume] in Blood by Automated count 1.2-3.8 [facility] Lymphocytes/100 WBC Auto (Bl d)on 07-18-2024 Lymphocytes/100 WBC (Bld) Lymphocytes/100 leukocytes in Blood by Automated count 20.5-60.0 [facility] MCH Auto (RBC) [Entitic mass ]on 07-18-2024 MCH (RBC) [Entitic mass] MCH [Entitic mass] by Automated count 26.7-34.0 [facility] MCHC Auto (RBC) [Mass/Vol]on 07-18-2024 MCHC (RBC) [Mass/Vol] MCHC [Mass/volume] by Automated count 29.9-35.2 [facility] MCV Auto (RBC) [Entitic vol] on 07-18-2024 MCV (RBC) [Entitic vol] MCV [Entitic volume] by Automated count 81.0-99.0 [facility] Monocytes Auto (Bld) [#/Vol] on 07-18-2024 Monocytes (Bld) [#/Vol] Automated blood monocyte count 0.3-0.8 [facility] Monocytes/100 WBC Auto (Bld) on 07-18-2024 Monocytes/100 WBC (Bld) Automated monocyte % 1.7-12.0 [facility] Neutrophils Auto (Bld) [#/Vo l]on 07-18-2024 Neutrophils (Bld) [#/Vol] Neutrophils [#/volume] in Blood by Automated count 1.4-6.5 [facility] Neutrophils/100 WBC Auto (Bl d)on 07-18-2024 Neutrophils/100 WBC (Bld) Automated neutrophil % 43.0-75.0 [facility] No Panel Informationon 07-18 Eosinophils # (Auto) 0.3 10 3/uL 0.0-0.7 [facility] Immature Granulocyte # (Auto) 0.03 10 3/uL 0.00-0.03 [facility] Platelet mean volume Auto (B ld) [Entitic vol]on 07-18-2024 Platelet mean volume (Bld) [Entitic vol] Platelet mean volume [Entitic volume] in Blood by Automated count Low 9.5-13.5 [facility] Platelets Auto (Bld) [#/Vol] on 07-18-2024 Platelets (Bld) [#/Vol] Platelets [#/volume] in Blood by Automated count 150-450 [facility] RBC Auto (Bld) [#/Vol]on RBC (Bld) [#/Vol] Erythrocytes [#/volume] in Blood by Automated count Low 4.20-5.40 [facility] Basophils Auto (Bld) [#/Vol] on 07-12-2024 Basophils (Bld) [#/Vol] Automated basophil count 0.0-0.1 [facility] Basophils/100 WBC Auto (Bld) on 07-12-2024 Basophils/100 WBC (Bld) Automated basophil % 0.2-2.0 [facility] Eosinophils/100 WBC Auto (Bl d)on 07-12-2024 Eosinophils/100 WBC (Bld) Automated eosinophil % 0.9-7.0 [facility] Erythrocyte distribution wid th Auto (RBC) [Ratio]on 07-12-2024 Erythrocyte distribution width (RBC) [Ratio] Erythrocyte distribution width [Ratio] by Automated count 11.0-15.0 [facility] Estimated glomerular filtrat ion rate (GFR) non- Americanon 07-12-2024 GFR/1.73 sq M.predicted among non-blacks MDRD (S/P/Bld) [Vol rate/Area] Estimated glomerular filtration rate (GFR) non- Low >=60 mL/min/1.73 m 2 [facility] Hematocrit Auto (Bld) [Volum e fraction]on 07-12-2024 Hematocrit (Bld) [Volume fraction] Hematocrit [Volume Fraction] of Blood by Automated count Low 36.0-48.0 [facility] Hemoglobin [Mass/volume] in Bloodon 07-12-2024 Hemoglobin (Bld) [Mass/Vol] Hemoglobin [Mass/volume] in Blood Low 12.0-16.0 [facility] Laboratory - Chemistry and C hemistry - challengeon 07-12-2024 Calcium [Mass/Vol] 8.6 mg/dL 8.5-10.1 [facility] Chloride [Moles/Vol] 102 mmol/L 98-107 [facility] CO2 [Moles/Vol] 24.7 mmol/L 21.0-32.0 [facility] Creatinine [Mass/Vol] 1.94 mg/dL High 0.55-1.02 [facility] GFR/1.73 sq M.predicted MDRD (S/P/Bld) [Vol rate/Area] 31 mL/min/{1.73_m2} Low >=60 mL/min/1.73 m 2 [facility] Glucose [Mass/Vol] 203 mg/dL High 74-106 [facility] Potassium [Moles/Vol] 4.6 mmol/L 3.5-5.1 [facility] Sodium [Moles/Vol] 137 mmol/L 136-145 [facility] Urea nitrogen [Mass/Vol] 24.0 mg/dL High 7.0-18.0 [facility] Urea nitrogen/Creatinine [Mass ratio] 12.4 mg/mg [facility] Laboratory - Hematology and Cell countson 07-12-2024 Immature granulocytes/100 WBC (Bld) 1.8 % High 0.0-0.5 [facility] Leukocytes [#/volume] correc chip for nucleated erythrocytes in Blood by Automated counon 07-12-2024 WBC corrected for nucl RBC Auto (Bld) [#/Vol] Leukocytes [#/volume] corrected for nucleated erythrocytes in Blood by Automated coun 4.0-11.0 [facility] Lymphocytes Auto (Bld) [#/Vo l]on 07-12-2024 Lymphocytes (Bld) [#/Vol] Lymphocytes [#/volume] in Blood by Automated count 1.2-3.8 [facility] Lymphocytes/100 WBC Auto (Bl d)on 07-12-2024 Lymphocytes/100 WBC (Bld) Lymphocytes/100 leukocytes in Blood by Automated count 20.5-60.0 [facility] MCH Auto (RBC) [Entitic mass ]on 07-12-2024 MCH (RBC) [Entitic mass] MCH [Entitic mass] by Automated count 26.7-34.0 [facility] MCHC Auto (RBC) [Mass/Vol]on 07-12-2024 MCHC (RBC) [Mass/Vol] MCHC [Mass/volume] by Automated count 29.9-35.2 [facility] MCV Auto (RBC) [Entitic vol] on 07-12-2024 MCV (RBC) [Entitic vol] MCV [Entitic volume] by Automated count 81.0-99.0 [facility] Monocytes Auto (Bld) [#/Vol] on 07-12-2024 Monocytes (Bld) [#/Vol] Automated blood monocyte count 0.3-0.8 [facility] Monocytes/100 WBC Auto (Bld) on 07-12-2024 Monocytes/100 WBC (Bld) Automated monocyte % 1.7-12.0 [facility] Neutrophils Auto (Bld) [#/Vo l]on 07-12-2024 Neutrophils (Bld) [#/Vol] Neutrophils [#/volume] in Blood by Automated count 1.4-6.5 [facility] Neutrophils/100 WBC Auto (Bl d)on 07-12-2024 Neutrophils/100 WBC (Bld) Automated neutrophil % 43.0-75.0 [facility] No Panel Informationon 07-12 Eosinophils # (Auto) 0.2 10 3/uL 0.0-0.7 [facility] Immature Granulocyte # (Auto) 0.13 10 3/uL High 0.00-0.03 [facility] Platelet mean volume Auto (B ld) [Entitic vol]on 07-12-2024 Platelet mean volume (Bld) [Entitic vol] Platelet mean volume [Entitic volume] in Blood by Automated count 9.5-13.5 [facility] Platelets Auto (Bld) [#/Vol] on 07-12-2024 Platelets (Bld) [#/Vol] Platelets [#/volume] in Blood by Automated count 150-450 [facility] RBC Auto (Bld) [#/Vol]on RBC (Bld) [#/Vol] Erythrocytes [#/volume] in Blood by Automated count Low 4.20-5.40 [facility] Serum or plasma anion gap de terminationon 07-12-2024 Anion gap [Moles/Vol] Serum or plasma an ion gap determination [facility] ANION GAPon 07-11-2024 Anion gap [Moles/Vol] 10.0 mmol/L Normal 8.0-16.0 [facility] Comment on above: Result Comment: ANIO N GAP = Sodium -(Chloride + CO2) Performed By: #### P OCGL #### [facility] [address] [place] [address] Anion Gapon 07-11-2024 Anion gap [Moles/Vol] 10 mmol/L 8.0 - 16.0 meq/L [facility] Comment on above: ANION GAP = Sodium - (Chloride + CO2) Performed at [facility] [address] [place] [address] BASIC METABOL PANELon 2024 Calcium [Mass/Vol] 8.9 mg/dL Normal 8.8-10.2 [facility] Comment on above: Performed By: #### P OCGL #### [facility] [address] [place] [address] CO2 [Moles/Vol] 22 mmol/L Normal 22-29 [facility] Comment on above: Performed By: #### P OCGL #### [facility] [address] [place] [address] Creatinine [Mass/Vol] 1.0 mg/dL High 0.5-0.9 [facility] Comment on above: Performed By: #### P OCGL #### [facility] [address] [place] [address] Glucose [Mass/Vol] 166 mg/dL High 74-109 [facility] Comment on above: Performed By: #### P OCGL #### [employer] [address] [place] [address]683 Urea nitrogen [Mass/Vol] 16 mg/dL Normal 8-23 [facility] Comment on above: Performed By: #### P OCGL #### [address] [address] Chloride [Moles/Vol] 103 mmol/L Normal 98-111 [facility] Comment on above: Performed By: #### P OCGL #### [address] [address] Potassium [Moles/Vol] 4.7 mmol/L Normal 3.5-5.2 [facility] Comment on above: Result Comment: Low level specimen hemolysis is present as indicated by the interference index on the Yamilet analyzer. ??The reported K+ level may be falsely increased. If clinically warranted, recollection of the specimen is suggested. Performed By: #### P OCGL #### [address] [address] Sodium [Moles/Vol] 135 mmol/L Normal 135-145 [facility] Comment on above: Performed By: #### P OCGL #### [address] [address] Basic metabolic 2000 panelon 07-11-2024 Calcium [Mass/Vol] 8.9 mg/dL 8.8 - 10. 2 mg/dL [email or web address] Comment on above: Performed at [facility] [address] [place] [address] Chloride [Moles/Vol] 103 mmol/L 98 - 11 1 meq/L [email or web address] CO2 [Moles/Vol] 22 mmol/L 22 - 29 meq/L [email or web address] Creatinine [Mass/Vol] 1.0 mg/dL High 0.5 - 0.9 mg/dL [email or web address] Glucose [Mass/Vol] 166 mg/dL High 74 - 109 mg/dL [email or web address] Interpretation and review of laboratory results Abnormal [facility] [employer] Potassium [Moles/Vol] 4.7 mmol/L 3.5 - 5.2 meq/L [email or web address] Comment on above: Low level specimen h emolysis is present as indicated by the interference index on the Yamilet analyzer. The reported K+ level may be falsely increased. If clinically warranted, recollection of the specimen is suggested. Sodium [Moles/Vol] 135 mmol/L 135 - 145 meq/L [facility] Urea nitrogen [Mass/Vol] 16 mg/dL 8 - 23 mg/dL [facility] GFR, ESTIMATEDon 07-11-2024 GFR/1.73 sq M.predicted MDRD (S/P/Bld) [Vol rate/Area] 62 mL/min/{1.73_m2} Normal >60 [facility] Comment on above: Pediatric calculator link [...] that affects renal tubular secretion. Performed at [employer] [place] [address] Result Comment: Pedi atric calculator link https://www.kidney.org/professionals/kdoqi/gfr_calculatorped [...] secretion. Performed By: #### P OCGL #### [facility] [address] [place] [address] GLUCOSE POCon 07-11-2024 Glucose [Mass/Vol] 177 mg/dL High 70-108 [facility] Comment on above: Performed at [facility] [address] [place] [address] Performed By: #### P OCGL #### [facility] [address] [place], [place] [id number] Glucose Auto test strip (Bld ) [Mass/Vol]on 07-11-2024 Interpretation and review of laboratory results Abnormal [facility] HGB,HCTon 07-11-2024 Hematocrit (Bld) [Volume fraction] 33.4 % Low 37.0-47.0 [facility] Comment on above: Performed at [facility] [employer] [facility] [address] [place] [address] Performed By: #### P OCGL #### [employer] [facility] [address] [place] [address] Hemoglobin (Bld) [Mass/Vol] 10.8 g/dL Low 12.0-16.0 [facility] Comment on above: Performed By: #### P OCGL #### [facility] [employer] [address] [place] [address] Hemoglobin and Hematocrit pa bhavna (Bld)on 07-11-2024 Interpretation and review of laboratory results Abnormal [facility] No Panel Informationon 07-11 [facility] ANION GAPon 07-10-2024 Anion gap [Moles/Vol] 8.0 mmol/L Normal 8.0-16.0 [facility] Comment on above: Result Comment: ANIO N GAP = Sodium -(Chloride + CO2) Performed By: #### P OCGL #### [facility] [employer] [place] [address] Anion Gapon 07-10-2024 Anion gap [Moles/Vol] 8 mmol/L 8.0 - 16.0 meq/L [facility] Comment on above: ANION GAP = Sodium - (Chloride + CO2) Performed at [facility] [address] [place] [address] BASIC METABOL PANELon 2024 Calcium [Mass/Vol] 8.8 mg/dL Normal 8.8-10.2 [facility] Comment on above: Performed By: #### P OCGL #### [employer] [address] [place] [address] CO2 [Moles/Vol] 26 mmol/L Normal 22-29 [facility] Comment on above: Performed By: #### P OCGL #### [facility] [address] [place] [address] Creatinine [Mass/Vol] 1.1 mg/dL High 0.5-0.9 [facility] Comment on above: Performed By: #### P OCGL #### [facility] [address] [place] [address] Glucose [Mass/Vol] 198 mg/dL High 74-109 [facility] Comment on above: Performed By: #### P OCGL #### [facility] [employer] [facility] [address] [place] [address] Urea nitrogen [Mass/Vol] 24 mg/dL High 8-23 [facility] Comment on above: Performed By: #### P OCGL #### [facility] [employer] [facility] [address] [place] [address] Chloride [Moles/Vol] 101 mmol/L Normal 98-111 [facility] Comment on above: Performed By: #### P OCGL #### [facility] [employer] [address] [place] [address] Potassium [Moles/Vol] 4.6 mmol/L Normal 3.5-5.2 [facility] Comment on above: Performed By: #### P OCGL #### [facility] [employer] [facility] [address] [place] [address] Sodium [Moles/Vol] 135 mmol/L Normal 135-145 [facility] Comment on above: Performed By: #### P OCGL #### [facility] [employer] [address] [place] [address] Basic metabolic 2000 panelon 07-10-2024 Calcium [Mass/Vol] 8.8 mg/dL 8.8 - 10. 2 mg/dL [facility] Comment on above: Performed at [facility] [address] [place] [address] Chloride [Moles/Vol] 101 mmol/L 98 - 11 1 meq/L [facility] [employer] CO2 [Moles/Vol] 26 mmol/L 22 - 29 meq/L [facility] Creatinine [Mass/Vol] 1.1 mg/dL High 0.5 - 0.9 mg/dL [facility] Glucose [Mass/Vol] 198 mg/dL High 74 - 109 mg/dL [facility] Potassium [Moles/Vol] 4.6 mmol/L 3.5 - 5.2 meq/L [facility] Sodium [Moles/Vol] 135 mmol/L 135 - 145 meq/L [facility] Urea nitrogen [Mass/Vol] 24 mg/dL High 8 - 23 mg/dL [email or web address] GFR, ESTIMATEDon 07-10-2024 GFR/1.73 sq M.predicted MDRD (S/P/Bld) [Vol rate/Area] 56 mL/min/{1.73_m2} Abnormal >60 [email or web address] Comment on above: Pediatric calculator link https://www.kidney.org/professionals/kdoqi/gfr_calculatorped [...] that affects renal tubular secretion. Performed at [employer] [place] [address] Result Comment: Pedi atric calculator link https://www.kidney.org/professionals/kdoqi/gfr_calculatorped [...] secretion. Performed By: #### P OCGL #### [facility] [address] [place] [address] GLUCOSE POCon 07-10-2024 Glucose [Mass/Vol] 267 mg/dL High 70-108 [facility] Comment on above: Performed at [facility] [address] [place] [address] Performed By: #### P OCGL #### [employer] [address] [place] [address] Glucose [Mass/Vol] 154 mg/dL High 70-108 [facility] Comment on above: Performed at [facility] [address] [place] [address] Performed By: #### P OCGL #### [facility] [address] [place] [address] Glucose [Mass/Vol] 302 mg/dL High 70-108 [facility] Comment on above: Performed at [facility] [address] [place] [address] Performed By: #### P OCGL #### [facility] [address] [place] [address] Glucose [Mass/Vol] 205 mg/dL High 70-108 [facility] Comment on above: Performed at [facility] [address] [place] [address] Performed By: #### P OCGL #### [address] [address] Glucose Auto test strip (Bld ) [Mass/Vol]on [...] [facility] Comment on above: Performed at [facility] [address] [place] [address] Performed By: #### P OCGL #### [facility] [address] [place] [address] Hemoglobin (Bld) [Mass/Vol] 10.0 g/dL Low 12.0-16.0 [facility] Comment on above: Performed By: #### P OCGL #### [facility] [address] [place] [address] Hemoglobin and Hematocrit pa bhavna (Bld)on 07-10-2024 Hemoglobin (Bld) [Mass/Vol] 10 g/dL Low [facility] Interpretation and review of laboratory results Abnormal [facility] No Panel Informationon 07-10 Interpretation and review of laboratory results Abnormal [facility] ANION GAPon 07-09-2024 Anion gap [Moles/Vol] 10.0 mmol/L Normal 8.0-16.0 [facility] Comment on above: Result Comment: ANIO N GAP = Sodium -(Chloride + CO2) Performed By: #### P OCGL #### [facility] [address] [place] [address] Anion Gapon 07-09-2024 Anion gap [Moles/Vol] 10 mmol/L 8.0 - 16.0 meq/L [facility] Comment on above: ANION GAP = Sodium - (Chloride + CO2) Performed at [facility] [address] [place] [address] BASIC METABOL PANELon 2024 Calcium [Mass/Vol] 8.3 mg/dL Low 8.8-10.2 [facility] Comment on above: Performed By: #### P OCGL #### [address] [address] CO2 [Moles/Vol] 23 mmol/L Normal 22-29 [facility] Comment on above: Performed By: #### P OCGL #### [facility] [address] [place] [address] Creatinine [Mass/Vol] 1.1 mg/dL High 0.5-0.9 [facility] Comment on above: Performed By: #### P OCGL #### [facility] [address] [place] [address] Glucose [Mass/Vol] 197 mg/dL High 74-109 [facility] Comment on above: Performed By: #### P OCGL #### [facility] [address] [place] [address] Urea nitrogen [Mass/Vol] 21 mg/dL Normal 8-23 [facility] Comment on above: Performed By: #### P OCGL #### [facility] [address] [place] [address] Chloride [Moles/Vol] 103 mmol/L Normal 98-111 [facility] Comment on above: Performed By: #### P OCGL #### [facility] [address] [place] [address] Potassium [Moles/Vol] 5.8 mmol/L High 3.5-5.2 [facility] Comment on above: Performed By: #### P OCGL #### [facility] [address] [place] [address] Sodium [Moles/Vol] 136 mmol/L Normal 135-145 [facility] Comment on above: Performed By: #### P OCGL #### [facility] [address] [place] [address] Basic metabolic 2000 panelon 07-09-2024 Calcium [Mass/Vol] 8.3 mg/dL Low 8.8 - 10. 2 mg/dL [employer] Comment on above: Performed at [facility] [address] [place] [address] Chloride [Moles/Vol] 103 mmol/L 98 - 11 1 meq/L [employer] [email or web address] CO2 [Moles/Vol] 23 mmol/L 22 - 29 meq/L [facility] Creatinine [Mass/Vol] 1.1 mg/dL High 0.5 - 0.9 mg/dL [facility] Glucose [Mass/Vol] 197 mg/dL High 74 - 109 mg/dL [employer] [facility] Potassium [Moles/Vol] 5.8 mmol/L High 3.5 - 5.2 meq/L [facility] Sodium [Moles/Vol] 136 mmol/L 135 - 145 meq/L [email or web address] Urea nitrogen [Mass/Vol] 21 mg/dL 8 - 23 mg/dL [facility] GFR, ESTIMATEDon 07-09-2024 GFR/1.73 sq M.predicted MDRD (S/P/Bld) [Vol rate/Area] 56 mL/min/{1.73_m2} Abnormal >60 [facility] Comment on above: Pediatric calculator link https://www.kidney.org/professionals/kdoqi/gfr_calculatorped [...] that affects renal tubular secretion. [place] [address] Result Comment: Soniya atric calculator link https://www.kidney.org/professionals/kdoqi/gfr_calculatorped [...] secretion. Performed By: #### P OCGL #### [facility] [place] [address] GLUCOSE POCon 07-09-2024 Glucose [Mass/Vol] 211 mg/dL High 70-108 [facility] Comment on above: Performed at [facility] [address] [place] [address] Performed By: #### P OCGL #### [place] [address] Glucose [Mass/Vol] 212 mg/dL High 70-108 [facility] Comment on above: Performed at [facility] [address] [place] [address] Performed By: #### P OCGL #### [place] [address] Glucose [Mass/Vol] 169 mg/dL High 70-108 [facility] Comment on above: Performed at [facility] [address] [place] [address] Performed By: #### P OCGL #### [facility] [employer] [place] [address] Glucose [Mass/Vol] 229 mg/dL High 70-108 [facility] Comment on above: Performed at [facility] [facility] [address] [place] [address] Performed By: #### P OCGL #### [facility] [address] [place] [address] Glucose [Mass/Vol] 203 mg/dL High 70-108 [facility] Comment on above: Performed at [facility] [address] [place] [address] Performed By: #### P OCGL #### [facility] [address] [place] [address] HGB,HCTon 07-09-2024 Hematocrit (Bld) [Volume fraction] 36.7 % Low 37.0-47.0 [facility] Comment on above: Performed at [facility] [address] [place] [address] Performed By: #### P OCGL #### [place] [address] Hemoglobin (Bld) [Mass/Vol] 11.9 g/dL Low 12.0-16.0 [facility] Comment on above: Performed By: #### P OCGL #### [facility] [address] [place] [address] No Panel Informationon 07-09 Interpretation and review of laboratory results Abnormal [facility] POTASSIUMon 07-09-2024 Potassium [Moles/Vol] 4.7 mmol/L Normal 3.5-5.2 [facility] Comment on above: Performed By: #### K P #### [facility] [place] [address] Potassiumon 07-09-2024 Potassium [Moles/Vol] 4.7 mmol/L 3.5 - 5.2 meq/L [facility] Comment on above: Performed at [facility] [address] [place] [address] GLUCOSE POCon 07-08-2024 Glucose [Mass/Vol] 266 mg/dL High 70-108 [facility] Comment on above: Performed at [facility] [employer] [facility] [address] [place] [address] Performed By: #### P OCGL #### [facility] [address] [place] [address] Glucose [Mass/Vol] 120 mg/dL High 70-108 [facility] Comment on above: Performed at [facility] [employer] [facility] [address] [place] [address] Performed By: #### P OCGL #### [facility] [address] [place] [address] Glucose [Mass/Vol] 105 mg/dL Normal 70-108 [facility] Comment on above: Performed at [facility] [employer] [facility] [address] [place] [address] Performed By: #### P OCGL #### [facility] [address] [place] [address] Glucose [Mass/Vol] 136 mg/dL High 70-108 [facility] Comment on above: Performed at [facility] [employer] [facility] [address] [place] [address] Performed By: #### P OCGL #### [facility] [address] [place] [address] Glucose Auto test strip (Bld ) [Mass/Vol]on 07-08-2024 Interpretation and review of laboratory results Abnormal [facility] [employer] [facility] Interpretation and review of laboratory results Abnormal [facility] Interpretation and review of laboratory results Abnormal [facility] [employer] [facility] XR LUMBAR SPINE 1 VWon 07-08 [...] Boo Headley MD 07/08/24 Final result Normal [facility] XR Lumbar spine Single viewo n 07-08-2024 1. Evidence of posterior fusion at L4-L5. Please refer to operative report for further details. This report has been created using voice recognition software. It may contain minor errors which are inherent in voice recognition technology. Electronically signed by Dr. Jerrod Betts [facility] Sivakumar Betts MD - 07/08/2024 PROCEDURE: XR [...] technology. Electronically signed by Dr. Jerrod Betts [facility] Radiology Study observation (narrative) [facility] Intraoperative appearance of the lumbar spine. This report has been created using voice recognition software. It may contain minor errors which are inherent in voice recognition technology. Electronically signed by Dr. Boo Headley [facility] MOBILE LATERAL LUMBA R SPINE: CLINICAL INFORMATION: surgery. L3-L5 decompression. L4-L5- fusion COMPARISON: No prior study. TECHNIQUE: A single lateral mobile view of the lumbar spine was obtained For localization purposes. FINDINGS: 2 spinal needles are present posteriorly directed at the L4 and L5 levels. [facility] Boo Sheth MD - 07/08/2024 MOBILE LATERAL [...] technology. Electronically signed by Dr. Boo Headley [facility] Radiology Study observation (narrative) [facility] XR Lumbar spine Single viewO rdered By: Sivakumar Betts on 07-08-2024 [facility] Work Phone: XR Lumbar spine Single viewO rdered By: Boo Headley on 07-08-2024 [facility] Work Phone: ANION GAPon 07-07-2024 Anion gap [Moles/Vol] 14.0 mmol/L Normal 8.0-16.0 [facility] Comment on above: Result Comment: ANIO N GAP = Sodium -(Chloride + CO2) Performed By: #### B MP, EGFR1, CBCND, ANION #### [facility] [address] [place] [address] Anion Gapon 07-07-2024 Anion gap [Moles/Vol] 14 mmol/L 8.0 - 16.0 meq/L [facility] Comment on above: ANION GAP = Sodium - (Chloride + CO2) Performed at [facility] [address] [place] [address] BASIC METABOL PANELon 2024 CO2 [Moles/Vol] 21 mmol/L Low 22-29 [facility] Comment on above: Performed By: #### B MP, EGFR1, CBCND, ANION #### [facility] [address] [place] [address] Creatinine [Mass/Vol] 1.0 mg/dL High 0.5-0.9 [facility] Comment on above: Performed By: #### B MP, EGFR1, CBCND, ANION #### [facility] [address] [address] Glucose [Mass/Vol] 172 mg/dL High 74-109 [facility] Comment on above: Performed By: #### B MP, EGFR1, CBCND, ANION #### [facility] [address] [place] [id number] Urea nitrogen [Mass/Vol] 33 mg/dL High 8-23 [facility] Comment on above: Performed By: #### B MP, EGFR1, CBCND, ANION #### [facility] [address] [place] [address] Calcium [Mass/Vol] 9.2 mg/dL Normal 8.8-10.2 [facility] Comment on above: Performed By: #### B MP, EGFR1, CBCND, ANION #### [facility] [address] [place] [address] Chloride [Moles/Vol] 103 mmol/L Normal 98-111 [facility] Comment on above: Performed By: #### B MP, EGFR1, CBCND, ANION #### [address] [address] Potassium [Moles/Vol] 4.4 mmol/L Normal 3.5-5.2 [facility] Comment on above: Result Comment: Low level specimen hemolysis is present as indicated by the interference index on the Yamilet analyzer. ??The reported K+ level may be falsely increased. If clinically warranted, recollection of the specimen is suggested. Performed By: #### B MP, EGFR1, CBCND, ANION #### [address] [address] Sodium [Moles/Vol] 138 mmol/L Normal 135-145 [facility] Comment on above: Performed By: #### B MP, EGFR1, CBCND, ANION #### [address] [address] Basic metabolic 2000 panelon 07-07-2024 Calcium [Mass/Vol] 9.2 mg/dL 8.8 - 10. 2 mg/dL [email or web address] Comment on above: Performed at [facility] [address] [place] [address] Chloride [Moles/Vol] 103 mmol/L 98 - 11 1 meq/L [employer] [email or web address] CO2 [Moles/Vol] 21 mmol/L Low 22 - 29 meq/L [employer] [email or web address] Creatinine [Mass/Vol] 1.0 mg/dL High 0.5 - 0.9 mg/dL [employer] [email or web address] Glucose [Mass/Vol] 172 mg/dL High 74 - 109 mg/dL [facility] Interpretation and review of laboratory results Abnormal [facility] Potassium [Moles/Vol] 4.4 mmol/L 3.5 - 5.2 meq/L [email or web address] Comment on above: Low level specimen h emolysis is present as indicated by the interference index on the Yamilet analyzer. The reported K+ level may be falsely increased. If clinically warranted, recollection of the specimen is suggested. Sodium [Moles/Vol] 138 mmol/L 135 - 145 meq/L [facility] Urea nitrogen [Mass/Vol] 33 mg/dL High 8 - 23 mg/dL [facility] CBCon 07-07-2024 Erythrocyte distribution width (RBC) [Entitic vol] 40.3 fL 35.0 - 45.0 fL [facility] Platelets (Bld) [#/Vol] 236 10*3/uL [facility] RBC (Bld) [#/Vol] 4.73 10*6/uL [facility] WBC (Bld) [#/Vol] 8.6 10*3/uL [facility] Se cours [facility] CBC NO DIFFERENTIALon 2024 Erythrocyte distribution width (RBC) [Ratio] 12.6 % Normal 11.5-14.5 [facility] Comment on above: Performed By: #### B MP, EGFR1, CBCND, ANION #### [facility] [address] [place] [address] Hematocrit (Bld) [Volume fraction] 41.6 % Normal 37.0-47.0 [facility] Comment on above: Performed By: #### B MP, EGFR1, CBCND, ANION #### [facility] [address] [place] [address] Hemoglobin (Bld) [Mass/Vol] 13.5 g/dL Normal 12.0-16.0 [facility] Comment on above: Performed By: #### B MP, EGFR1, CBCND, ANION #### [facility] [facility] [address] [place] [address] MCH (RBC) [Entitic mass] 28.5 pg Normal 26.0-33.0 [facility] Comment on above: Performed By: #### B MP, EGFR1, CBCND, ANION #### [facility] [address] [place] [address] MCHC (RBC) [Mass/Vol] 32.5 g/dL Normal 32.2-35.5 [facility] Comment on above: Performed By: #### B MP, EGFR1, CBCND, ANION #### [facility] [address] [place] [address] MCV (RBC) [Entitic vol] 87.9 fL Normal 81.0-99.0 [facility] Comment on above: Performed By: #### B MP, EGFR1, CBCND, ANION #### [place] [address] PLATELET 236 thou/mm3 Normal 130-400 [facility] Comment on above: Performed By: #### B MP, EGFR1, CBCND, ANION #### [facility] [place] [address] Platelet mean volume (Bld) [Entitic vol] 9.6 fL Normal 9.4-12.4 [facility] Comment on above: Performed at [facility] [address] [place] [address] Performed By: #### B MP, EGFR1, CBCND, ANION #### [facility] [place] [address] RBC 4.73 mill/mm3 Normal 4.20-5.40 [facility] Comment on above: Performed By: #### B MP, EGFR1, CBCND, ANION #### [place] [address] RDW-SD 40.3 fL Normal 35.0-45.0 [facility] Comment on above: Performed By: #### B MP, EGFR1, CBCND, ANION #### [place] [address] WBC 8.6 thou/mm3 Normal 4.8-10.8 [facility] Comment on above: Performed By: #### B MP, EGFR1, CBCND, ANION #### [facility] [place] [address] GFR, ESTIMATEDon 07-07-2024 GFR/1.73 sq M.predicted MDRD (S/P/Bld) [Vol rate/Area] 62 mL/min/{1.73_m2} Normal >60 [facility] Comment on above: Pediatric calculator link [...] that affects renal tubular secretion. [place] [address] Result Comment: Soniya hernándezc calculator link https://www.kidney.org/professionals/kdoqi/gfr_calculatorped [...] #### B MP, EGFR1, CBCND, ANION #### [place] [address] GLUCOSE POCon 07-07-2024 Glucose [Mass/Vol] 271 mg/dL High 70-108 [facility] Comment on above: Performed at [facility] [address] [place] [address] Performed By: #### P OCGL #### [place] [address] Glucose [Mass/Vol] 188 mg/dL High 70-108 [facility] Comment on above: Performed at [facility] [address] [place] [address] Performed By: #### P OCGL #### [place] [address] Glucose [Mass/Vol] 174 mg/dL High 70-108 [facility] Comment on above: Performed at [facility] [address] [place] [address] Performed By: #### P OCGL #### [place] [address] Glucose [Mass/Vol] 76 mg/dL Normal 70-108 [facility] Comment on above: Performed at [facility] [address] [place] [address] Performed By: #### P OCGL #### [facility] [address] [place] [address] Glomerular Filtration Rate, Estimatedon 07-07-2024 [facility] Glucose Auto test strip (Bld ) [Mass/Vol]on 07-07-2024 Interpretation and review of laboratory results Abnormal [facility] [employer] [facility] Interpretation and review of laboratory results Abnormal [facility] Interpretation and review of laboratory results Abnormal [facility] [employer] [facility] No Panel Informationon 07-07 [facility] XR CHEST (2 VW)on 07-07-2024 XR CHEST [...] Kj Epps MD 07/07/24 Final result Normal [facility] XR Chest 2 Viewson Impression: No acute cardiopulmonary disease. This document has been electronically signed by: Kj Epps MD on 07/07/2024 02:22 AM [facility] Chest X-ray: 2 views . Indication: Pulmonary congestion. Comparison: None Findings: The lungs are well aerated. No focal consolidation, or pleural effusion. The cardiac silhouette is normal in size. Bony thorax is grossly intact. Bilateral shoulder arthroplasty. External metallic density versus surgical hardware projects on the lower cervical spine. [facility] Kj Epps MD - 07/07/2024 Chest [...] Kj Epps MD on 07/07/2024 02:22 AM [facility] Radiology Study observation (narrative) [facility] XR Chest 2 ViewsOrdered By: Kj Epps on 07-07-2024 [facility] ANION GAPon 07-06-2024 Anion gap [Moles/Vol] 14.0 mmol/L Normal 8.0-16.0 [facility] Comment on above: Result Comment: ANIO N GAP = Sodium -(Chloride + CO2) Performed By: #### P OCGL #### [place] [address] APTTon 07-06-2024 aPTT Coag (Bld) [Time] 29.5 s Normal 22.0-38.0 [facility] Comment on above: Result Comment: Ther apeutic Heparin Reference Range= 60-95 seconds (corresponds to 0.3 to 0.7 u/mL Anti-Xa factor activity) Performed By: #### P OCGL #### [place] [address] Anion Gapon 07-06-2024 Anion gap [Moles/Vol] 14 mmol/L 8.0 - 16.0 meq/L [facility] Comment on above: ANION GAP = Sodium - (Chloride + CO2) Performed at [facility] [address] [place] [address] CBC WITH DIFFERENTIALon 06-23 ABS BASOPHILS 0.0 thou/mm3 Normal 0.0-0.1 [facility] Comment on above: Performed By: #### P OCGL #### [facility] [address] [place] [address] ABS EOSINOPHILS 0.0 thou/mm3 Normal 0.0-0.4 [facility] Comment on above: Performed By: #### P OCGL #### [facility] [address] [place] [address] ABS IMMATURE GRANS (IG) 0.05 thou/mm3 Normal 0.00-0.07 [facility] Comment on above: Performed By: #### P OCGL #### [address] [address] ABS LYMPHOCYTES 2.8 thou/mm3 Normal 1.0-4.8 [facility] Comment on above: Performed By: #### P OCGL #### [address] [address] ABS MONOCYTES 0.8 thou/mm3 Normal 0.4-1.3 [facility] Comment on above: Performed By: #### P OCGL #### [address] [address] ABS NEUTROPHILS 7.9 thou/mm3 High 1.8-7.7 [facility] Comment on above: Performed By: #### P OCGL #### [address] [address] Basophils/100 WBC (Bld) 0.2 % Normal [facility] Comment on above: Performed By: #### P OCGL #### [address] [address] Eosinophils/100 WBC (Bld) 0.3 % Normal [facility] Comment on above: Performed By: #### P OCGL #### [address] [address] Erythrocyte distribution width (RBC) [Ratio] 12.5 % Normal 11.5-14.5 [facility] Comment on above: Performed By: #### P OCGL #### [address] [address] Hematocrit (Bld) [Volume fraction] 42.6 % Normal 37.0-47.0 [facility] Comment on above: Performed By: #### P OCGL #### [address] [address] Hemoglobin (Bld) [Mass/Vol] 13.8 g/dL Normal 12.0-16.0 [facility] Comment on above: Performed By: #### P OCGL #### [address] [address] IMMATURE GRANS (IG) 0.4 % Normal [facility] Comment on above: Performed By: #### P OCGL #### [address] [address] Lymphocytes/100 WBC (Bld) 24.0 % Normal [facility] Comment on above: Performed By: #### P OCGL #### [address] [address] MCH (RBC) [Entitic mass] 28.6 pg Normal 26.0-33.0 [facility] Comment on above: Performed By: #### P OCGL #### [address] [address] MCHC (RBC) [Mass/Vol] 32.4 g/dL Normal 32.2-35.5 [facility] Comment on above: Performed By: #### P OCGL #### [address] [address] MCV (RBC) [Entitic vol] 88.2 fL Normal 81.0-99.0 [facility] Comment on above: Performed By: #### P OCGL #### [address] [address] Monocytes/100 WBC (Bld) 6.8 % Normal [facility] Comment on above: Performed By: #### P OCGL #### [address] [address] Neutrophils/100 WBC (Bld) 68.3 % Normal [facility] Comment on above: Performed By: #### P OCGL #### [address] [address] NRBC 0 /100 wbc Normal [facility] Comment on above: Performed By: #### P OCGL #### [address] [address] PLATELET 274 thou/mm3 Normal 130-400 [facility] Comment on above: Performed By: #### P OCGL #### [address] [address] Platelet mean volume (Bld) [Entitic vol] 9.7 fL Normal 9.4-12.4 [facility] Comment on above: Performed By: #### P OCGL #### [place] [id number] RBC 4.83 mill/mm3 Normal 4.20-5.40 [facility] Comment on above: Performed By: #### P OCGL #### [place] [address] RDW-SD 39.9 fL Normal 35.0-45.0 [facility] Comment on above: Performed By: #### P OCGL #### [facility] [address] [place] [address] WBC 11.6 thou/mm3 High 4.8-10.8 [facility] Comment on above: Performed By: #### P OCGL #### [place] [address] CBC with Auto Differentialon 07-06-2024 Basophils (Bld) [...] [facility] Comment on above: Performed at [facility] [address] [place] [address] Platelets (Bld) [#/Vol] 274 10*3/uL [facility] RBC (Bld) [#/Vol] 4.83 10*6/uL [facility] WBC (Bld) [#/Vol] 11.6 10*3/uL [facility] COMP. METABOLIC PANELon 06-23 Albumin [Mass/Vol] 4.3 g/dL Normal 3.4-4.9 [facility] Comment on above: Performed By: #### P OCGL #### [facility] [address] [place] [address] ALP [Catalytic activity/Vol] 65 U/L Normal 35-104 [facility] Comment on above: Performed By: #### P OCGL #### [facility] [address] [address] ALT [Catalytic activity/Vol] 24 U/L Normal 10-35 [facility] Comment on above: Performed By: #### P OCGL #### [facility] [address] [place] [address] AST [Catalytic activity/Vol] 23 U/L Normal 10-35 [facility] Comment on above: Performed By: #### P OCGL #### [address] [address] Bilirubin [Mass/Vol] 0.4 mg/dL Normal 0.3-1.2 [facility] Comment on above: Performed By: #### P OCGL #### [address] [address] Calcium [Mass/Vol] 9.6 mg/dL Normal 8.8-10.2 [facility] Comment on above: Performed By: #### P OCGL #### [address] [address] CO2 [Moles/Vol] 26 mmol/L Normal 22-29 [facility] Comment on above: Performed By: #### P OCGL #### [address] [address] Creatinine [Mass/Vol] 1.3 mg/dL High 0.5-0.9 [facility] Comment on above: Performed By: #### P OCGL #### [facility] [address] [place] [address] Glucose [Mass/Vol] 259 mg/dL High 74-109 [facility] Comment on above: Performed By: #### P OCGL #### [facility] [address] [place] [address] Protein [Mass/Vol] 7.2 g/dL Normal 6.4-8.3 [facility] Comment on above: Performed By: #### P OCGL #### [facility] [address] [address] Urea nitrogen [Mass/Vol] 43 mg/dL High 8-23 [facility] Comment on above: Performed By: #### P OCGL #### [address] [address] Chloride [Moles/Vol] 96 mmol/L Low 98-111 [facility] Comment on above: Performed By: #### P OCGL #### [address] [address] POTASSIUM WITH REFLEX MG 5.0 meq/L Normal 3.5-5.2 [facility] Comment on above: Result Comment: Low level specimen hemolysis is present as indicated by the interference index on the Yamilet analyzer. ??The reported K+ level may be falsely increased. If clinically warranted, recollection of the specimen is suggested. Performed By: #### P OCGL #### [facility] [address] [address] Sodium [Moles/Vol] 136 mmol/L Normal 135-145 [facility] Comment on above: Performed By: #### P OCGL #### [address] [address] Comprehensive metabolic 2000 panelon 07-06-2024 Albumin BCG dye [Mass/Vol] 4.3 g/dL 3.4 - 4.9 g/dL [facility] ALP [Catalytic activity/Vol] 65 U/L 35 - 104 U/L [facility] [employer] ALT No additional P-5'-P [Catalytic activity/Vol] 24 U/L 10 - 35 U/L [facility] Comment on above: Performed at [facility] [address] [place] [address] AST [Catalytic activity/Vol] 23 U/L 10 - 35 U/L [facility] [employer] Bilirubin [Mass/Vol] 0.4 mg/dL 0.3 - 1 .2 mg/dL [facility] Calcium [Mass/Vol] 9.6 mg/dL 8.8 - 10. 2 mg/dL [facility] Chloride [Moles/Vol] 96 mmol/L Low 98 - 11 1 meq/L [facility] [employer] CO2 [Moles/Vol] 26 mmol/L 22 - 29 meq/L [facility] [employer] Creatinine [Mass/Vol] 1.3 mg/dL High 0.5 - 0.9 mg/dL [facility] [employer] Glucose [Mass/Vol] 259 mg/dL High 74 - 109 mg/dL [facility] [employer] Potassium [Moles/Vol] 5.0 mmol/L 3.5 - 5.2 meq/L [facility] [employer] Comment on above: Low level specimen h emolysis is present as indicated by the interference index on the Yamilet analyzer. The reported K+ level may be falsely increased. If clinically warranted, recollection of the specimen is suggested. Protein [Mass/Vol] 7.2 g/dL 6.4 - 8.3 g/dL [facility] [employer] Sodium [Moles/Vol] 136 mmol/L 135 - 145 meq/L [facility] [employer] Urea nitrogen [Mass/Vol] 43 mg/dL High 8 - 23 mg/dL [facility] [employer] EKG 12 leadOrdered By: Kp Rodriges on 07-06-2024 Atrial Rate 68 BPM [facility] [employer] Work Phone: P [place] 58 degrees [facility] [employer] Work Phone: P-R Interval 146 ms [facility] [employer] Work Phone: Q-T Interval 422 ms [facility] [employer] Work Phone: QRS Duration 82 ms [facility] [employer] Work Phone: QTc Calculation (Bazett) 448 ms [facility] [employer] Work Phone: R [place] 67 degrees [facility] [employer] Work Phone: T [place] 66 degrees [facility] [employer] Work Phone: Ventricular Rate 68 BPM [facility] [employer] Work Phone: [facility] [employer] Work Phone: EKG 12 leadon 07-06-2024 Normal sinus rhythm Possible Left atrial enlargement ST & T wave abnormality, consider anterior ischemia Abnormal ECG No previous ECGs available Clinical correlation is indicated Confirmed by Kp Rodriges ([id number]) on 07/06/2024 11:10:52 PM DIMITRYKS Kp Us MD - 07/06/2024 Normal sinus rhythm Possible Left atrial enlargement ST & T wave abnormality, consider anterior ischemia Abnormal ECG No previous ECGs available Clinical correlation is indicated Confirmed by Kp Rodriges ([id number]) on 07/06/2024 11:10:52 PM [facility] EKG 12-LEADon 07-06-2024 EKG 12-LEAD 68 68 146 82 [phone] Normal sinus rhythm Possible Left atrial enlargement ST & T wave abnormality, consider anterior ischemia Abnormal ECG No previous ECGs available Clinical correlation is indicated Confirmed by Kp Rodriges ([id number]) on 07/06/2024 11:10:52 PM [email or web address] RetrieveTestByDateTime ?RzetiqoYN=[id number]&D ate=06-07-2024&Time=20 %3a11%3a37%3a00&TestTy pe=ECG&Site=3&OutputTy pe=PDF&Ext=PDF Normal [facility] GFR, ESTIMATEDon 07-06-2024 GFR/1.73 sq M.predicted MDRD (S/P/Bld) [Vol rate/Area] 46 mL/min/{1.73_m2} Abnormal >60 [facility] Comment on above: Pediatric calculator link [...] that affects renal tubular secretion. Performed at [facility] [address] [place] [address] Result Comment: Pedi atric calculator link https://www.kidney.org/professionals/kdoqi/gfr_calculatorped [...] secretion. Performed By: #### P OCGL #### [facility] [address] [place] [address] GLUCOSE POCon 07-06-2024 Glucose [Mass/Vol] 280 mg/dL High 70-108 [facility] Comment on above: Performed at [facility] [address] [place] [address] Performed By: #### P OCGL #### [facility] [address] [place], [place] [address] Glucose Auto test strip (Bld ) [Mass/Vol]on 07-06-2024 Interpretation and review of laboratory results Abnormal [facility] INR Coag (PPP) [Relative jackie e]on 07-06-2024 [facility] No Panel Informationon 07-06 Interpretation and review of laboratory results Abnormal [facility] [employer] PROTHOMBIN TIMEon 07-06-2024 INR Coag (Bld) [Relative time] 1.02 {INR} Normal 0.85-1.13 [facility] Comment on above: Result Comment: ---- -----INDICATION INR Reference Range DVT, PE, AF, AMI, tissue heart valve 2.0 to 3.0 Mechanical prosthetic valves 2.5 to 3.5 Performed By: #### P OCGL #### [facility] [address] [place] [address] Protime-INRon 07-06-2024 INR Coag (PPP) [Relative time] 1.02 {INR} 0.85 - 1.13 [facility] [employer] Comment on above: ---------INDICATION- INR Reference Range DVT, PE, AF, AMI, tissue heart valve 2.0 to 3.0 Mechanical prosthetic valves 2.5 to 3.5 Performed at [facility] [address] [place] [address] aPTT Coag (Bld) [Time]on aPTT Coag (PPP) [Time] 29.5 s Jaylan n [facility] Comment on above: Therapeutic Heparin Reference Range= 60-95 seconds (corresponds to 0.3 to 0.7 u/mL Anti-Xa factor activity) Performed at [facility] [address] [place] [address] Bon [facility] Estimated glomerular filtrat ion rate (GFR) non- Americanon 06-27-2024 GFR/1.73 sq M.predicted among non-blacks MDRD (S/P/Bld) [Vol rate/Area] Estimated glomerular filtration rate (GFR) non- Low >=60 mL/min/1.73 m 2 [facility] - Chemistry and C hemistry - challengeon 06-27-2024 Calcium [Mass/Vol] 9.8 mg/dL 8.5-10.1 [facility] Chloride [Moles/Vol] 101 mmol/L 98-107 [facility] CO2 [Moles/Vol] 28.6 mmol/L 21.0-32.0 [facility] Creatinine [Mass/Vol] 1.41 mg/dL High 0.55-1.02 [facility] GFR/1.73 sq M.predicted MDRD (S/P/Bld) [Vol rate/Area] 45 mL/min/{1.73_m2} Low >=60 mL/min/1.73 m 2 [facility] Glucose [Mass/Vol] 66 mg/dL Low 74-106 [facility] Potassium [Moles/Vol] 5.1 mmol/L 3.5-5.1 [facility] Sodium [Moles/Vol] 139 mmol/L 136-145 [facility] Urea nitrogen [Mass/Vol] 29.0 mg/dL High 7.0-18.0 [facility] Urea nitrogen/Creatinine [Mass ratio] 20.6 mg/mg [facility] Bilirubin Ql (U) LARGE Abnormal NEGATIVE [facility] Glucose (U) [Mass/Vol] Negative NEGATIVE [facility] Ketones Ql (U) TRACE mg/dL Abnormal NEGATIVE [facility] pH (U) 5.5 [pH] 5.0-9.0 [facility] Specific gravity (U) [Rel density] 1.025 1.005-1.025 [facility] Urobilinogen Qn (U) 0.2 {Nela'U}/dL 0.2-1.0 [facility] - Specimen inform ationon 06-27-2024 Appearance (U) CLEAR CLEAR [facility] Color (U) YELLOW YELLOW [facility] - Urinalysison Leukocyte esterase Test strip Ql (U) Negative NEGATIVE [facility] Nitrite Ql (U) Negative NEGATIVE [facility] Protein Ql (U) Negative NEG/TRACE [facility] No Panel Informationon 06-27 Urine Microscopic Review NO [facility] Urine Occult Blood Negative NEGATIVE [facility] Serum or plasma anion gap de terminationon 06-27-2024 Anion gap [Moles/Vol] Serum or plasma an ion gap determination [facility] No Panel Informationon 06-01 Miscellaneous Test COMMENT . [facility] Comment on above: Test Ordered: [id number] Aerobic Cult, Extended IncubAerobic Cult, Extended Incub [...] STrimethoprim/Sulfa SVancomycin SPerformed at: CB - [facility] [address] [id number] Director: Noam Haskins PhD, Phone: [phone] Basophils Auto (Bld) [#/Vol] on 05-31-2024 Basophils (Bld) [#/Vol] Automated basophil count 0.0-0.1 [facility] Basophils/100 WBC Auto (Bld) on 05-31-2024 Basophils/100 WBC (Bld) Automated basophil % 0.2-2.0 [facility] Eosinophils/100 WBC Auto (Bl d)on 05-31-2024 Eosinophils/100 WBC (Bld) Automated eosinophil % 0.9-7.0 [facility] Erythrocyte distribution wid th Auto (RBC) [Ratio]on 05-31-2024 Erythrocyte distribution width (RBC) [Ratio] Erythrocyte distribution width [Ratio] by Automated count 11.0-15.0 [facility] Hematocrit Auto (Bld) [Volum e fraction]on 05-31-2024 Hematocrit (Bld) [Volume fraction] Hematocrit [Volume Fraction] of Blood by Automated count 36.0-48.0 [facility] Hemoglobin [Mass/volume] in Bloodon 05-31-2024 Hemoglobin (Bld) [Mass/Vol] Hemoglobin [Mass/volume] in Blood 12.0-16.0 [facility] Laboratory - Hematology and Cell countson 05-31-2024 ESR (Bld) [Velocity] 7 mm/h <=30 [facility] Immature granulocytes/100 WBC (Bld) 0.2 % 0.0-0.5 [facility] Leukocytes [#/volume] correc chip for nucleated erythrocytes in Blood by Automated counon 05-31-2024 WBC corrected for nucl RBC Auto (Bld) [#/Vol] Leukocytes [#/volume] corrected for nucleated erythrocytes in Blood by Automated coun 4.0-11.0 [facility] Lymphocytes Auto (Bld) [#/Vo l]on 05-31-2024 Lymphocytes (Bld) [#/Vol] Lymphocytes [#/volume] in Blood by Automated count 1.2-3.8 [facility] Lymphocytes/100 WBC Auto (Bl d)on 05-31-2024 Lymphocytes/100 WBC (Bld) Lymphocytes/100 leukocytes in Blood by Automated count 20.5-60.0 [facility] MCH Auto (RBC) [Entitic mass ]on 05-31-2024 MCH (RBC) [Entitic mass] MCH [Entitic mass] by Automated count 26.7-34.0 [facility] MCHC Auto (RBC) [Mass/Vol]on 05-31-2024 MCHC (RBC) [Mass/Vol] MCHC [Mass/volume] by Automated count 29.9-35.2 [facility] MCV Auto (RBC) [Entitic vol] on 05-31-2024 MCV (RBC) [Entitic vol] MCV [Entitic volume] by Automated count 81.0-99.0 [facility] Monocytes Auto (Bld) [#/Vol] on 05-31-2024 Monocytes (Bld) [#/Vol] Automated blood monocyte count 0.3-0.8 [facility] Monocytes/100 WBC Auto (Bld) on 05-31-2024 Monocytes/100 WBC (Bld) Automated monocyte % 1.7-12.0 [facility] Neutrophils Auto (Bld) [#/Vo l]on 05-31-2024 Neutrophils (Bld) [#/Vol] Neutrophils [#/volume] in Blood by Automated count 1.4-6.5 [facility] Neutrophils/100 WBC Auto (Bl d)on 05-31-2024 Neutrophils/100 WBC (Bld) Automated neutrophil % 43.0-75.0 [facility] No Panel Informationon 05-31 C-Reactive Protein, Quantitative <0.50 mg/dL <=0.50 [facility] Eosinophils # (Auto) 0.1 10 3/uL 0.0-0.7 [facility] Immature Granulocyte # (Auto) 0.01 10 3/uL 0.00-0.03 [facility] Platelet mean volume Auto (B ld) [Entitic vol]on 05-31-2024 Platelet mean volume (Bld) [Entitic vol] Platelet mean volume [Entitic volume] in Blood by Automated count Low 9.5-13.5 [facility] Platelets Auto (Bld) [#/Vol] on 05-31-2024 Platelets (Bld) [#/Vol] Platelets [#/volume] in Blood by Automated count 150-450 [facility] RBC Auto (Bld) [#/Vol]on RBC (Bld) [#/Vol] Erythrocytes [#/volume] in Blood by Automated count 4.20-5.40 [facility] Basophils Auto (Bld) [#/Vol] on 12-27-2023 Basophils (Bld) [#/Vol] 0.1 10 3/uL 0.0-0.1 [facility] Basophils/100 WBC Auto (Bld) on 12-27-2023 Basophils/100 WBC (Bld) 1.0 % 0.2-2.0 [facility] Cholesterol in LDL Calc [Mas s/Vol]on 12-27-2023 Cholesterol in LDL [Mass/Vol] 63.0 mg/dL [facility] Comment on above: <100 mg/dl [id number] 0-129 mg/dl NEAR OR ABOVE [id number] mg/dl BORDERLINE [id number] mg/dl HIGH>190 mg/dl VERY HIGH Cholesterol in VLDL Calc [Ma ss/Vol]on 12-27-2023 Cholesterol in VLDL [Mass/Vol] 45.8 mg/dL [facility] Eosinophils/100 WBC Auto (Bl d)on 12-27-2023 Eosinophils/100 WBC (Bld) 8.3 % High 0.9-7.0 [facility] Erythrocyte distribution wid th Auto (RBC) [Ratio]on 12-27-2023 Erythrocyte distribution width (RBC) [Ratio] 11.9 % 11.0-15.0 [facility] Estimated glomerular filtrat ion rate (GFR) non- Americanon 12-27-2023 GFR/1.73 sq M.predicted among non-blacks MDRD (S/P/Bld) [Vol rate/Area] 47 mL/min/{1.73_m2} Low >=60 [facility] Globulin Calc (S) [Mass/Vol] on 12-27-2023 Globulin (S) [Mass/Vol] 3.2 g/dL [facility] Glucose mean value [Mass/vol ume] in Blood Estimated from glycated hemoglobinon 12-27-2023 Average glucose Estimated from glycated hemoglobin (Bld) [Mass/Vol] 143 mg/dL [facility] Hematocrit Auto (Bld) [Volum e fraction]on 12-27-2023 Hematocrit (Bld) [Volume fraction] 39.7 % 36.0-48.0 [facility] Hemoglobin [Mass/volume] in Bloodon 12-27-2023 Hemoglobin (Bld) [Mass/Vol] 12.9 g/dL 12.0-16.0 [facility] Laboratory - Chemistry and C hemistry - challengeon 12-27-2023 Albumin [Mass/Vol] 3.7 g/dL 3.4-5.0 [facility] ALP [Catalytic activity/Vol] 61 U/L 46-116 [facility] ALT [Catalytic activity/Vol] 36 U/L 14-59 [facility] AST [Catalytic activity/Vol] 24 U/L 15-37 [facility] Bilirubin [Mass/Vol] 0.6 mg/dL 0.2-1.0 [facility] Calcium [Mass/Vol] 9.2 mg/dL 8.5-10.1 [facility] Chloride [Moles/Vol] 101 mmol/L 98-107 [facility] Cholesterol [Mass/Vol] 146 mg/dL <=200 [facility] Cholesterol in HDL [Mass/Vol] 38 mg/dL Low 40-60 [facility] Comment on above: > or =60 mg/dl - LOW CARDIOVASCULAR RISK<40 mg/dl - HIGH CARDIOVASCULAR RISK CO2 [Moles/Vol] 26.8 mmol/L 21.0-32.0 [facility] Creatinine [Mass/Vol] 1.17 mg/dL High 0.55-1.02 [facility] GFR/1.73 sq M.predicted MDRD (S/P/Bld) [Vol rate/Area] 56 mL/min/{1.73_m2} Low >=60 [facility] Glucose [Mass/Vol] 138 mg/dL High 74-106 [facility] Potassium [Moles/Vol] 4.5 mmol/L 3.5-5.1 [facility] Protein [Mass/Vol] 6.9 g/dL 6.4-8.2 [facility] Sodium [Moles/Vol] 138 mmol/L 136-145 [facility] Triglyceride [Mass/Vol] 229 mg/dL High <=150 [facility] TSH Qn 0.834 m[IU]/L 0.358-3.740 [facility] Urea nitrogen [Mass/Vol] 23.0 mg/dL High 7.0-18.0 [facility] Urea nitrogen/Creatinine [Mass ratio] 19.7 mg/mg [facility] Laboratory - Hematology and Cell countson 12-27-2023 HbA1c (Bld) [Mass fraction] 6.6 % High 4.5-6.2 [facility] Comment on above: ADA RECOMMENDED LIMI T 4.0 - 6.0ADA THERAPEUTIC TARGET < 7.0ACTION SUGGESTED> 7.0 Immature granulocytes/100 WBC (Bld) 0.4 % 0.0-0.5 [facility] Leukocytes [#/volume] correc chip for nucleated erythrocytes in Blood by Automated counon 12-27-2023 WBC corrected for nucl RBC Auto (Bld) [#/Vol] 5.2 10 3/uL 4.0-11.0 [facility] Lymphocytes Auto (Bld) [#/Vo l]on 12-27-2023 Lymphocytes (Bld) [#/Vol] 2.2 10 3/uL 1.2-3.8 [facility] Lymphocytes/100 WBC Auto (Bl d)on 12-27-2023 Lymphocytes/100 WBC (Bld) 42.1 % 20.5-60.0 [facility] MCH Auto (RBC) [Entitic mass ]on 12-27-2023 MCH (RBC) [Entitic mass] 28.5 pg 26.7-34.0 [facility] MCHC Auto (RBC) [Mass/Vol]on 12-27-2023 MCHC (RBC) [Mass/Vol] 32.5 g/dL 29.9-35.2 [facility] MCV Auto (RBC) [Entitic vol] on 12-27-2023 MCV (RBC) [Entitic vol] 87.8 fL 81.0-99.0 [facility] Monocytes Auto (Bld) [#/Vol] on 12-27-2023 Monocytes (Bld) [#/Vol] 0.3 10 3/uL 0.3-0.8 [facility] Monocytes/100 WBC Auto (Bld) on 12-27-2023 Monocytes/100 WBC (Bld) 6.4 % 1.7-12.0 [facility] Neutrophils Auto (Bld) [#/Vo l]on 12-27-2023 Neutrophils (Bld) [#/Vol] 2.2 10 3/uL 1.4-6.5 [facility] Neutrophils/100 WBC Auto (Bl d)on 12-27-2023 Neutrophils/100 WBC (Bld) 41.8 % Low 43.0-75.0 [facility] No Panel Informationon 12-26 Eosinophils # (Auto) 0.4 10 3/uL 0.0-0.7 [facility] Immature Granulocyte # (Auto) 0.02 10 3/uL 0.00-0.03 [facility] Platelet mean volume Auto (B ld) [Entitic vol]on 12-27-2023 Platelet mean volume (Bld) [Entitic vol] 9.6 fL 9.5-13.5 [facility] Platelets Auto (Bld) [#/Vol] on 12-27-2023 Platelets (Bld) [#/Vol] 190 10 3/uL 150-450 [facility] RBC Auto (Bld) [#/Vol]on RBC (Bld) [#/Vol] 4.52 10 6/uL 4.20-5.40 [facility] Serum or plasma albumin/glob ulin mass ratioon 12-27-2023 Albumin/Globulin [Mass ratio] 1.2 {ratio} [facility] Serum or plasma anion gap de terminationon 12-27-2023 Anion gap [Moles/Vol] 14.7 mmol/L [facility] Serum or plasma total choles terol/high density lipoprotein (HDL) cholesterol mass desiree 12-27-2023 Cholesterol.total/Chol esterol in HDL [Mass ratio] 3.8 {ratio} [facility] Comment on above: 3.3 - 4.4 [...] BERNY QUISPE Date: 2022-08-24 07:19 Normal [facility] CBC AUTO DIFFon 03-30-2022 BASO # 0.0 103/ul Normal 0.0-0.1 [facility] Comment on above: Performed By: #### C BC #### [facility] [address] [address] [address] Rc Foster Basophils/100 WBC (Bld) 0.4 % Normal 0.2-2.0 [facility] Comment on above: Performed By: #### C BC #### [facility] [address] [place] [address] Dr. Rc Foster EO # 0.3 103/ul Normal 0.0-0.7 [facility] Comment on above: Performed By: #### C BC #### [facility] [address] [place] [address] Dr. Rc Foster Eosinophils/100 WBC (Bld) 4.9 % Normal 0.9-7.0 [facility] Comment on above: Performed By: #### C BC #### [facility] [address] [place] [address] Dr. Rc Foster Erythrocyte distribution width (RBC) [Ratio] 12.2 % Normal 11.0-15.0 [facility] Comment on above: Performed By: #### C BC #### [facility] [address] [place] [address] Dr. Rc Foster Hematocrit (Bld) [Volume fraction] 39.8 % Normal 36.0-48.0 [facility] Comment on above: Performed By: #### C BC #### [facility] [address] [place] [address] Dr. Rc Foster Hemoglobin (Bld) [Mass/Vol] 13.1 g/dL Normal 12.0-16.0 [facility] Comment on above: Performed By: #### C BC #### [facility] [address] [place] [address] Dr. Rc Foster IG # 0.02 10e3/ul Normal 0.00-0.03 [facility] Comment on above: Performed By: #### C BC #### [facility] [address] [place] [address] Dr. Rc Foster IG % 0.4 % Normal 0.0-0.5 [facility] Comment on above: Performed By: #### C BC #### [facility] [address] [place] [address] Dr. Rc Foster LYMPH # 2.1 103/ul Normal 1.2-3.8 [facility] Comment on above: Performed By: #### C BC #### [facility] [address] [place] [address] Dr. Rc Foster Lymphocytes/100 WBC (Bld) 37.1 % Normal 20.5-60.0 [facility] Comment on above: Performed By: #### C BC #### [facility] [address] [place] [address] Dr. Rc Foster MANUAL DIFF REQ NO Normal [facility] Comment on above: Performed By: #### C BC #### [facility] [address] [place] [address] Dr. Rc Foster MCH (RBC) [Entitic mass] 28.7 pg Normal 26.7-34.0 [facility] Comment on above: Performed By: #### C BC #### [facility] [address] [place] [address] Dr. Rc Foster MCHC (RBC) [Mass/Vol] 32.9 g/dL Normal 29.9-35.2 [facility] Comment on above: Performed By: #### C BC #### [facility] [address] [place] [address] Dr. Rc Foster MCV (RBC) [Entitic vol] 87.1 fL Normal 81.0-99.0 [facility] Comment on above: Performed By: #### C BC #### [facility] [address] [place] [address] Dr. Rc Foster MONO # 0.4 103/ul Normal 0.3-0.8 [facility] Comment on above: Performed By: #### C BC #### [facility] [address] [place] [address] Dr. Rc Foster Monocytes/100 WBC (Bld) 6.7 % Normal 1.7-12.0 [facility] Comment on above: Performed By: #### C BC #### [facility] [address] [place] [address] Dr. Rc Foster NEUT # 2.9 103/ul Normal 1.4-6.5 [facility] Comment on above: Performed By: #### C BC #### [facility] [address] [place] [address] Dr. Rc Foster Neutrophils/100 WBC (Bld) 50.5 % Normal 43.0-75.0 [facility] Comment on above: Performed By: #### C BC #### [facility] [address] [place] [address] Dr. Rc Foster Platelet mean volume (Bld) [Entitic vol] 9.7 fL Normal 9.5-13.5 [facility] Comment on above: Performed By: #### C BC #### [facility] [address] [place] [address] Dr. Rc Foster PLT 189 103/ul Normal 150-450 [facility] Comment on above: Performed By: #### C BC #### [facility] [address] [place] [address] Dr. Rc Foster RBC 4.57 106/ul Normal 4.20-5.40 [facility] Comment on above: Performed By: #### C BC #### [facility] [address] [place] [address] Dr. Rc Foster WBC 5.7 103/ul Normal 4.0-11.0 [facility] Comment on above: Performed By: #### C BC #### [facility] [address] [place] [address] Dr. Rc Foster GLYCOHEMOGLOBIN A1Con 2021 ADA RECOMMENDATION SEE BELOW Normal [facility] Comment on above: Result Comment: ADA RECOMMENDED LIMIT 4.0 - 6.0 ADA THERAPEUTIC TARGET < 7.0 ACTION SUGGESTED > 7.0 Performed By: #### A 1C #### [facility] [address] [place] [address] Dr. Rc Foster Glucose [Mass/Vol] 143 mg/dL Normal [facility] Comment on above: Performed By: #### A 1C #### [facility] [address] [place] [address] Dr. Rc Foster HbA1c (Bld) [Mass fraction] 6.6 % Critically high 4.5-6.2 [facility] Comment on above: Performed By: #### A 1C #### [facility] [address] [place] [address] Dr. Rc Foster LIPID PROFILEon 03-30-2022 CHOL-HDL RATIO NORM SEE BELOW Normal [facility] Comment on above: Result Comment: 3.3 - 4.4 LOW RISK 4.4 - 7.1 AVERAGE RISK 7.1 - 11.0 MODERATE RISK >11.0 HIGH RISK Performed By: #### T SH, CMP, LIPID ####[facility] [address] [place], [place] [address]Zy. Rc Foster Cholesterol [Mass/Vol] 184 mg/dL Normal <=200 [facility] Comment on above: Performed By: #### T SH, CMP, LIPID ####[facility] [address] [place], [place] [address]Yb. Rc Foster Cholesterol in HDL [Mass/Vol] 42 mg/dL Normal 40-60 [facility] Comment on above: Performed By: #### T SH, CMP, LIPID ####[facility] [address] [place], [place] [address]Zy. Rc Foster Cholesterol in LDL [Mass/Vol] 87.0 mg/dL Normal [facility] Comment on above: Performed By: #### T SH, CMP, LIPID ####[facility] [address] [place], [place] [address]Ld. Rc Foster Cholesterol.total/Chol esterol in HDL [Mass ratio] 4.4 {ratio} Normal [facility] Comment on above: Performed By: #### T SH, CMP, LIPID ####[facility] [address] [place], [place] [address]If. Rc Foster HDL NORMAL > or = 60 mg/dl - LO W CARDIOVASCULAR RISK <40 mg/dl - HIGH CARDIOVASCULAR RISK Normal [facility] Comment on above: Performed By: #### T SH, CMP, LIPID ####[facility] [address] [id number]. Rc Foster LDL CALC NORMAL SEE BELOW Normal [facility] Comment on above: Result Comment: <100 mg/dl OPTIMAL 100 - 129 mg/dl NEAR OR ABOVE OPTIMAL 130 - 159 mg/dl BORDERLINE HIGH 160 - 189 mg/dl HIGH >190 mg/dl VERY HIGH Performed By: #### T SH, CMP, LIPID ####[facility] [address] [id number]. Rc Foster Triglyceride [Mass/Vol] 275 mg/dL Critically high <=150 [facility] Comment on above: Performed By: #### T SH, CMP, LIPID ####[facility] [address] [id number]. Rc Foster VLDL CALC 55.0 mg/dL Normal [facility] Comment on above: Performed By: #### T SH, CMP, LIPID ####[facility] [address] [id number]. Rc Foster PROF 14(COMP METB)on 022 Albumin [Mass/Vol] 4.0 g/dL Normal 3.4-5.0 [facility] Comment on above: Performed By: #### T SH, CMP, LIPID ####[facility] [address] [address]Dr. Rc Foster Albumin/Globulin [Mass ratio] 1.1 {ratio} Normal [facility] Comment on above: Performed By: #### T SH, CMP, LIPID ####[facility] [address] [address]Dr. Rc Foster ALP [Catalytic activity/Vol] 71 U/L Normal 46-116 [facility] Comment on above: Performed By: #### T SH, CMP, LIPID ####[facility] [address] [phone]. Rc Foster ALT [Catalytic activity/Vol] 29 U/L Normal 14-59 [facility] Comment on above: Performed By: #### T SH, CMP, LIPID ####[facility] [address] [id number]. Rc Foster Anion gap [Moles/Vol] 13.2 mmol/L Normal [facility] Comment on above: Performed By: #### T SH, CMP, LIPID ####[facility] [address] [phone]. Rc Fostre AST [Catalytic activity/Vol] 17 U/L Normal 15-37 [facility] Comment on above: Performed By: #### T SH, CMP, LIPID ####[facility] [address] [address]Dr. Rc Foster Bilirubin [Mass/Vol] 0.6 mg/dL Normal 0.2-1.0 [facility] Comment on above: Performed By: #### T SH, CMP, LIPID ####[facility] [address] [address]Dr. Rc Foster Calcium [Mass/Vol] 9.0 mg/dL Normal 8.5-10.1 [facility] Comment on above: Performed By: #### T SH, CMP, LIPID ####[facility] [address] [address]Dr. Rc Foster Chloride [Moles/Vol] 102 mmol/L Normal 98-107 [facility] Comment on above: Performed By: #### T SH, CMP, LIPID ####[facility] [address] [address]Dr. Rc Foster CO2 [Moles/Vol] 27.3 mmol/L Normal 21.0-32.0 [facility] Comment on above: Performed By: #### T SH, CMP, LIPID ####[facility] [address] [address]Dr. Rc Foster Creatinine [Mass/Vol] 1.00 mg/dL Normal 0.55-1.02 [facility] Comment on above: Performed By: #### T SH, CMP, LIPID ####[facility] [address] [address]Dr. Rc Foster EGFR-AF MONGOLIAN >60 Normal >=60 [facility] Comment on above: Performed By: #### T SH, CMP, LIPID ####[facility] [address] [address]Dr. Rc Foster EGFR-NON AF MONGOLIAN 56 mL/min/1.73m2 Critically low >=60 [facility] Comment on above: Performed By: #### T SH, CMP, LIPID ####[facility] [address] [place], [place] [address]Dr. Rc Foster Globulin (S) [Mass/Vol] 3.5 g/dL Normal [facility] Comment on above: Performed By: #### T MARY JANE, CMP, LIPID ####[facility] [address] [address]Dr. Rc Foster Glucose [Mass/Vol] 159 mg/dL Critically high 74-106 [facility] Comment on above: Performed By: #### T MARY JANE, CMP, LIPID ####[facility] [address] [address]Dr. Rc Foster Potassium [Moles/Vol] 4.5 mmol/L Normal 3.5-5.1 [facility] Comment on above: Performed By: #### T MARY JANE, CMP, LIPID ####[facility] [address] [address]Dr. Rc Foster Protein [Mass/Vol] 7.5 g/dL Normal 6.4-8.2 [facility] Comment on above: Performed By: #### T MARY JANE, CMP, LIPID ####[facility] [address] [address]Dr. Rc Foster Sodium [Moles/Vol] 138 mmol/L Normal 136-145 [facility] Comment on above: Performed By: #### T MARY JANE, CMP, LIPID ####[facility] [address] [address]Dr. Rc Foster Urea nitrogen [Mass/Vol] 23.0 mg/dL Critically high 7.0-18.0 [facility] Comment on above: Performed By: #### T MARY JANE, CMP, LIPID ####[facility] [address] [address]Dr. Rc Foster Urea nitrogen/Creatinine [Mass ratio] 23.0 mg/mg Normal [facility] Comment on above: Performed By: #### T MARY JANE, CMP, LIPID ####[facility] [address] [address]Dr. Rc Foster TSHon 03-30-2022 TSH 2.807 uIU/mL Normal 0.358-3.740 [facility] Comment on above: Performed By: #### T SH, CMP, LIPID ####[facility] [address] [place], [place] [address]PmRodger Foster US THYROIDon 03-30-2022 US THYROID EXAMINATION: [...] BERNY QUISPE Date: 2022-03-30 11:03 Normal [facility] MAMM SCREEN 3D LEX CADon 03-19-2022 MG MAMM SCREEN 3D LEX CAD Patient: CARROLL FUENTES Exam Date: 03/19/2022 : 1960 Gender:F Ordering : DR ROBERT VILLASENOR D.O. Admission #: [id number] Family : Order #: [id number] CLICK HERE TO VIEW EXAM RADIOLOGY REPORT [...] Treatments None Family Cancers None LOCATION: [facility] BREAST COMPOSITION: Scattered areas fibroglandular [...] Quispe M.D. on 03/23/2022 at 11:59 Normal [facility] CBC AUTO DIFFon 11-27-2021 BASO # 0.0 103/ul Normal 0.0-0.1 [facility] Comment on above: Performed By: #### C BC #### [facility] [address] [place] [address] Dr. Rc Foster Basophils/100 WBC (Bld) 0.7 % Normal 0.2-2.0 [facility] Comment on above: Performed By: #### C BC #### [facility] [address] [place] [address] Dr. Rc Foster EO # 0.6 103/ul Normal 0.0-0.7 [facility] Comment on above: Performed By: #### C BC #### [facility] [address] [address] [address] Rc Foster Eosinophils/100 WBC (Bld) 10.3 % Critically high 0.9-7.0 [facility] Comment on above: Performed By: #### C BC #### [facility] [address] [place] [address] Dr. Rc Foster Erythrocyte distribution width (RBC) [Ratio] 12.4 % Normal 11.0-15.0 [facility] Comment on above: Performed By: #### C BC #### [facility] [address] [place] [address] Dr. Rc Foster Hematocrit (Bld) [Volume fraction] 41.2 % Normal 36.0-48.0 [facility] Comment on above: Performed By: #### C BC #### [facility] [address] [place] [address] Dr. Rc Foster Hemoglobin (Bld) [Mass/Vol] 13.4 g/dL Normal 12.0-16.0 [facility] Comment on above: Performed By: #### C BC #### [facility] [address] [place] [address] Dr. Rc Foster IG # 0.01 10e3/ul Normal 0.00-0.03 [facility] Comment on above: Performed By: #### C BC #### [facility] [address] [place] [address] Dr. Rc Foster IG % 0.2 % Normal 0.0-0.5 [facility] Comment on above: Performed By: #### C BC #### [facility] [address] [place] [address] Dr. Rc Foster LYMPH # 2.3 103/ul Normal 1.2-3.8 [facility] Comment on above: Performed By: #### C BC #### [facility] [address] [place] [address] Dr. Rc Foster Lymphocytes/100 WBC (Bld) 40.6 % Normal 20.5-60.0 [facility] Comment on above: Performed By: #### C BC #### [facility] [address] [place] [address] Dr. Rc Foster MANUAL DIFF REQ NO Normal [facility] Comment on above: Performed By: #### C BC #### [facility] [address] [place] [address] Dr. Rc Foster MCH (RBC) [Entitic mass] 28.8 pg Normal 26.7-34.0 [facility] Comment on above: Performed By: #### C BC #### [facility] [address] [place] [address] Dr. Rc Foster MCHC (RBC) [Mass/Vol] 32.5 g/dL Normal 29.9-35.2 [facility] Comment on above: Performed By: #### C BC #### [facility] [address] [address] [address] Rc Foster MCV (RBC) [Entitic vol] 88.6 fL Normal 81.0-99.0 [facility] Comment on above: Performed By: #### C BC #### [facility] [address] [address] [address] Rc Foster MONO # 0.4 103/ul Normal 0.3-0.8 [facility] Comment on above: Performed By: #### C BC #### [facility] [address] [place] [address] Dr. Rc Foster Monocytes/100 WBC (Bld) 7.6 % Normal 1.7-12.0 [facility] Comment on above: Performed By: #### C BC #### [facility] [address] [place] [address] Dr. Rc Foster NEUT # 2.3 103/ul Normal 1.4-6.5 [facility] Comment on above: Performed By: #### C BC #### [facility] [address] [place] [address] Dr. Rc Foster Neutrophils/100 WBC (Bld) 40.6 % Critically low 43.0-75.0 [facility] Comment on above: Performed By: #### C BC #### [facility] [address] [place] [address] Dr. Rc Foster Platelet mean volume (Bld) [Entitic vol] 9.6 fL Normal 9.5-13.5 [facility] Comment on above: Performed By: #### C BC #### [facility] [address] [place] [address] Dr. Rc Foster PLT 194 103/ul Normal 150-450 [facility] Comment on above: Performed By: #### C BC #### [facility] [address] [place] [address] Dr. Rc Foster RBC 4.65 106/ul Normal 4.20-5.40 [facility] Comment on above: Performed By: #### C BC #### [facility] [address] [place] [address] Dr. Rc Foster WBC 5.5 103/ul Normal 4.0-11.0 [facility] Comment on above: Performed By: #### C BC #### [facility] [address] [place] [address] Dr. Rc Foster GLYCOHEMOGLOBIN A1Con 2021 ADA RECOMMENDATION SEE BELOW Normal [facility] Comment on above: Result Comment: ADA RECOMMENDED LIMIT 4.0 - 6.0 ADA THERAPEUTIC TARGET < 7.0 ACTION SUGGESTED > 7.0 Performed By: #### A 1C #### [facility] [address] [place] [address] Dr. Rc Foster Glucose [Mass/Vol] 131 mg/dL Normal [facility] Comment on above: Performed By: #### A 1C #### [facility] [address] [place] [address] Dr. Rc Foster HbA1c (Bld) [Mass fraction] 6.2 % Normal 4.5-6.2 [facility] Comment on above: Performed By: #### A 1C #### [facility] [address] [place] [address] Dr. Rc Foster PROF CHEM 8 (BAS METB)on Anion gap [Moles/Vol] 15.2 mmol/L Normal [facility] Comment on above: Performed By: #### T SH, BMP #### [facility] [address] [place] [address] Dr. Rc Foster Calcium [Mass/Vol] 8.5 mg/dL Normal 8.5-10.1 [facility] Comment on above: Performed By: #### T SH, BMP #### [facility] [address] [place] [address] Dr. Rc Foster Chloride [Moles/Vol] 100 mmol/L Normal 98-107 [facility] Comment on above: Performed By: #### T SH, BMP #### [facility] [address] [place] [address] Dr. Rc Foster CO2 [Moles/Vol] 26.6 mmol/L Normal 21.0-32.0 [facility] Comment on above: Performed By: #### T SH, BMP #### [facility] [address] [place] [address] Dr. Rc Foster Creatinine [Mass/Vol] 1.15 mg/dL Critically high 0.55-1.02 [facility] Comment on above: Performed By: #### T SH, BMP #### [facility] [address] [place] [address] Dr. Rc Foster EGFR-AF MONGOLIAN 58 mL/min/1.73m2 Critically low >=60 [facility] Comment on above: Performed By: #### T SH, BMP #### [facility] [address] [place] [address] Dr. Rc Foster EGFR-NON AF MONGOLIAN 48 mL/min/1.73m2 Critically low >=60 [facility] Comment on above: Performed By: #### T SH, BMP #### [facility] [address] [place] [address] Dr. Rc Foster Glucose [Mass/Vol] 211 mg/dL Critically high 74-106 [facility] Comment on above: Performed By: #### T SH, BMP #### [facility] [address] [place] [address] Dr. Rc Foster Potassium [Moles/Vol] 4.8 mmol/L Normal 3.5-5.1 [facility] Comment on above: Performed By: #### T SH, BMP #### [facility] [address] [place] [address] Dr. Rc Foster Sodium [Moles/Vol] 137 mmol/L Normal 136-145 [facility] Comment on above: Performed By: #### T SH, BMP #### [facility] [address] [place] [address] Dr. Rc Foster Urea nitrogen [Mass/Vol] 33.0 mg/dL Critically high 7.0-18.0 [facility] Comment on above: Performed By: #### T SH, BMP #### [facility] [address] [place] [address] Dr. Rc Foster Urea nitrogen/Creatinine [Mass ratio] 28.7 mg/mg Normal [facility] Comment on above: Performed By: #### T MARY JANE, BMP #### [facility] [address] [id number] [address] Rc Foster TSHon 11-27-2021 TSH 0.744 uIU/mL Normal 0.358-3.740 [facility] Comment on above: Performed By: #### T MARY JANE, BMP #### [facility] [address] [address] [address] Rc Foster SYMPTOMATIC COVID-19 ANTIGEN on 10-28-2021 EUA Statement SEE BELOW Normal [facility] Comment on above: Result Comment: This [...] revoked sooner. Performed By: #### C VDAGS ####[facility] [address] [address]Dr. Rc Foster SARS-CoV-2 (COVID-19) RNA YARED+probe Ql (Unsp spec) Negative Normal NEGATIVE [facility] Comment on above: Performed By: #### C VDAGS ####[facility] [address] [id number]. Rc Foster GLYCOHEMOGLOBIN A1Con 2021 ADA RECOMMENDATION SEE BELOW Normal [facility] Comment on above: Result Comment: ADA RECOMMENDED LIMIT 4.0 - 6.0 ADA THERAPEUTIC TARGET < 7.0 ACTION SUGGESTED > 7.0 Performed By: #### A 1C #### [facility] [address] [address] [address] Rc Foster Glucose [Mass/Vol] 128 mg/dL Normal [facility] Comment on above: Performed By: #### A 1C #### [facility] [address] [address] [address] Rc Foster HbA1c (Bld) [Mass fraction] 6.1 % Normal 4.5-6.2 [facility] Comment on above: Performed By: #### A 1C #### [facility] [address] [address] [address] Rc Foster Discharge CCD Assessmenton 0 09-06-2020 Discharge CCD Assessment [facility] Patient: CARROLL FUENTES [address] [place] [address] MR#: [id number] DISCHARGE CCD ASSESSMENT : 58 Service Date: 09/06/20 1018 Discharge CCD Assessment Assessment Patient discharged home to continue exercises, pain medication, and wound care Electronically Signed eSign Date and Time Melyssa Flores 09/06/20 1019 Tera Hernandez MD Normal [facility] GLUCOSE METERon 09-06-2020 Glucose [Mass/Vol] 126 mg/dL High 70-99 [facility] Comment on above: Order Comment: CONSE RVATION Result Comment: Fast ing GLUCOSE reference range has been updated per (ADA) [place] [employer]'s recommendation. 07/18/2018 Performed By: #### L 500.89533 ####Test performed at: [address] [address] Glucose [Mass/Vol] 205 mg/dL High 70-99 [facility] Comment on above: Order Comment: CONSE RVATION Result Comment: Fast ing GLUCOSE reference range has been updated per (ADA) [place] Diabetes [employer]'s recommendation. 07/18/2018 Insulin per sl scale Performed By: #### L 500.98405 #### Test performed at: [address] [address] Internal Med Progress Noteon 09-06-2020 Internal Med Progress Note [facility] Patient: CARROLL FUENTES [address] [address] MR#: [id number] PROGRESS NOTE - Internal Medicine : 58 [...] 30 cc, WILL drain in place, no soraino. IM consulted for postoperative medical management. Pt [...] - 99 mg/dL) 126 205 177 310 Assessment/Plan-Steam Brush Operator al Med Problem List 1. S/P cervical [...] RES, Katarzyn a MD 09/06/20 1134 Normal [facility] Orthopedic Progress Noteon 0 09-06-2020 Orthopedic Progress Note [facility] Patient: CARROLL FUENTES [address] [place] [address] MR#: [id number] PROGRESS NOTE - Orthopedic : 58 Service [...] RN 09/06/20 1022 Tera Hernandez MD Normal [facility] Anesthesia Noteon 09-05-2020 Anesthesia Note [facility] Patient: CARROLL FUENTES [address] [place] [address] MR#: [id number] ANESTHESIA NOTE : Service Date: 09/05/20 0812 [...] APRN-SHILPI 09/05/20 0813 Chu Glez MD Normal [facility] BASIC MET PANELon 09-05-2020 Anion gap [Moles/Vol] 12 mmol/L Normal 6-18 [facility] Comment on above: Performed By: #### L 500.77411, L500.22523 #### Test performed at: [address] [address] Calcium [Mass/Vol] 8.7 mg/dL Normal 8.5-10.1 [facility] Comment on above: Performed By: #### L 500.26208, L500.05968 #### Test performed at: [address] [address] Chloride [Moles/Vol] 101 mmol/L Normal 98-107 [facility] Comment on above: Performed By: #### L 500.83847, L500.41444 #### Test performed at: [address] [address] CO2 [Moles/Vol] 25 mmol/L Normal 21-32 [facility] Comment on above: Performed By: #### L 500.23425, L500.88242 #### Test performed at: [address] [address] Creatinine [Mass/Vol] 1.020 mg/dL Normal 0.550-1.020 [facility] Comment on above: Performed By: #### L 500.51582, L500.44774 #### Test performed at: [address] [address] Glucose [Mass/Vol] 264 mg/dL High 70-99 [facility] Comment on above: Result Comment: Fast ing GLUCOSE reference range has been updated per (ADA) [place] Diabetes [employer]'s recommendation. 07/18/2018 Performed By: #### L 500.51433, L500.15119 #### Test performed at: [address] [address] OSM 289 mosm/kg Normal 270-300 [facility] Comment on above: Performed By: #### L 500.13632, L500.96468 #### Test performed at: [address] [address] Potassium [Moles/Vol] 4.5 mmol/L Normal 3.5-5.1 [facility] Comment on above: Performed By: #### L 500.51370, L500.59453 #### Test performed at: [address] [place] [address] Sodium [Moles/Vol] 134 mmol/L Low 136-145 [facility] Comment on above: Performed By: #### L 500.82390, L500.36231 #### Test performed at: [address] [address] Urea nitrogen [Mass/Vol] 17 mg/dL Normal 7-18 [facility] Comment on above: Performed By: #### L 500.69922, L500.09038 #### Test performed at: [address] [address] GFR ESTIMATEon 09-05-2020 IF AMER > 60 Normal > 60 [facility] Comment on above: Result Comment: eGFR (Estimated GFR) Units of measure:mL/min/1.73 meters sq. *CALCULATION REVISED 02/11/2015;IDMS-traceable MDRD equation eGFR is derived from the reexpressed MDRD Study equation using the following parameters: serum creatinine, age, gender and race. An eGFR<60 mL/min/1.73m2 for >3 months is consistent with chronic kidney disease. Refer to KDOQI guidelines for clinical interpretation. Performed By: #### L 500.91175, L500.80081 #### Test performed at: [address] [address] IF non-AFR AMER 55 Low > 60 [facility] Comment on above: Performed By: #### L 500.03612, L500.92414 #### Test performed at: [address] [address] GLUCOSE METERon 09-05-2020 Glucose [Mass/Vol] 177 mg/dL High 70-99 [facility] Comment on above: Order Comment: CONSE RVATION Result Comment: Fast ing GLUCOSE reference range has been updated per (ADA) [place] Diabetes Association's recommendation. 07/18/2018 Performed By: #### L 500.79507 #### Test performed at: [address] [address] [address] [place] [address] Glucose [Mass/Vol] 310 mg/dL High 70-99 [facility] Comment on above: Result Comment: Fast ing GLUCOSE reference range has been updated per (ADA) [place] Diabetes Association's recommendation. 07/18/2018 Insulin per sl scale Performed By: #### L 500.20709 ####Test performed at: [address] [address] Glucose [Mass/Vol] 281 mg/dL High 70-99 [facility] Comment on above: Result Comment: Fast ing GLUCOSE reference range has been updated per (ADA) [place] Diabetes [employer]'s recommendation. 07/18/2018 Insulin per sl scale Performed By: #### L 500.64106 #### Test performed at: [address] [address] Glucose [Mass/Vol] 105 mg/dL High 70-99 [facility] Comment on above: Result Comment: Fast ing GLUCOSE reference range has been updated per (ADA) [place] Diabetes [employer]'s recommendation. 07/18/2018 Performed By: #### L 500.22928 #### Test performed at: [address] [address] HGB AND HCTon 09-05-2020 Hematocrit (Bld) [Volume fraction] 37.5 % Normal 36.0-48.0 [facility] Comment on above: Performed By: #### L 200.13135 #### Test performed at: [address] [address] Hemoglobin (Bld) [Mass/Vol] 12.5 g/dL Normal 12.0-15.0 [facility] Comment on above: Performed By: #### L 200.02469 #### Test performed at: [address] [address] Internal Med Progress Noteon 09-05-2020 Internal Med Progress Note [facility] Patient: CARROLL FUENTES [address] [place] [address] MR#: [id number] PROGRESS NOTE - Internal Medicine : 58 [...] 12.5 Hct (36.0 - 48.0 %) 37.5 Assessment/Plan-Steam Brush Operator al Med Problem List 1. S/P cervical [...] input. Disc (more content not included)... Normal [facility] OT Therapy Recommendationson 09-05-2020 OT Therapy Recommendations [facility] Patient: CARROLL FUENTES [address] [place], [place] [address] MR#: [id number] OT THERAPY RECOMMENDATIONS : 58 Service Date: 09/05/201510 Therapy Recommendations Therapy Recommendations Recommendations OT evaluation completed. OT recommends HOME with FAmily assist. No further acute OT needs are indicated at this time. Electronically Signed eSign Date and Time Trupti Rojas OT 09/05/20 151 Normal [facility] Orthopedic Progress Noteon 0 09-05-2020 Orthopedic Progress Note [facility] Patient: CARROLL FUENTES [address] [place], [place] [address] MR#: [id number] PROGRESS NOTE - Orthopedic : 58 Service [...] Tests 09/05 09/05 09/05 09/04 1058 [id number] Chemistry Sodium (136 - 145 mmol/L) 134 [...] KHAN 09/05/20 1429 Tera Hernandez MD Normal [facility] PT Therapy Recommendationson 09-05-2020 PT Therapy Recommendations [facility] Patient: CARROLL FUENTES [address] [place] [address] MR#: [id number] PT THERAPY RECOMMENDATIONS : 58 Service Date: 09/05/20913 Therapy Recommendations Therapy Recommendations Recommendations PT eval complete. No further acute PT needs. Recommend d/c home /c family assist. Electronically Signed eSign Date and Time Tiffanie Bashir PT 09/05/20 0914 Normal [facility] z OT Inpatient Discharge Not juan 09-05-2020 z OT Inpatient Discharge Note [facility] Patient: CARROLL FUENTES [address] [address] MR#: [id number] OT INPATIENT DISCHARGE NOTE : 58 Service [...] Time Trupti Rojas OT 09/05/20 1534 Normal [facility] z OT Inpatient Evaluationon 09-05-2020 z OT Inpatient Evaluation [facility] Patient: CARROLL FUENTES [address] [address] MR#: [id number] OT INPATIENT EVALUATION : 58 Inpatient OT HPI Date of Service 09/05/20 Time In: 1401 Time Out: 1412 Total Treatment Time (Mins) 11 Visit Reason LATERAL RECESS STENOSIS W/ RADICULOPATHY Surgery Type/Date s/p L L4-5 LAmi, foraminotomy, decompression on 09.04.20/ Lumbar spine precautions Referral Date 09/04/20 Tx Diagnosis: LOW BACK PAIN Insurance Name [facility] POS [facility] Hospital Course Pt is a left hand [...] 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 Objective Precautions Lumbar [...] Excellent Nader (more content not included)... Normal [facility] z PT Inpatient Discharge Not juan 09-05-2020 z PT Inpatient Discharge Note [facility] Patient: CARROLL FUENTES [address] [place], [place] [address] MR#: [id number] PT INPATIENT DISCHARGE NOTE : 58 Service [...] Time Tiffanie Bashir PT 09/05/20 1139 Normal [facility] z PT Inpatient Evaluationon 09-05-2020 z PT Inpatient Evaluation [facility] Patient: CARROLL FUENTES [address] [place], [place] [address] MR#: [id number] PT INPATIENT EVALUATION : 58 Service Date: 09/05/20 0928 Inpatient PT HPI Date of Service 09/05/20 Time In: 0845 Time Out: 0907 Total Treatment Time (Mins) 22 Room Number 624 Visit Reason LATERAL RECESS STENOSIS W/ RADICULOPATHY Surgery Type: L L4-5 lami, foraminotomy, decompression Surgery Date: 09/04/20 Referral Date 09/04/20 Tx Diagnosis: LOW BACK PAIN Insurance Name [facility] POS O Hospital Course 60 y.o female at [facility] for above sx d/t lateral recess stenosis [...] posture. Improved stability noted /c single UE support/MANAGEMENT REP. Pt agreeable to use of her cane [...] Time Tiffanie Bashir PT 09/05/20 1502 Normal [facility] GLUCOSE METERon 09-04-2020 Glucose [Mass/Vol] 94 mg/dL Normal 70-99 [facility] Comment on above: Result Comment: Fast ing GLUCOSE reference range has been updated per (ADA) [place] [employer]'s recommendation. 07/18/2018 Performed By: #### L 500.89987 ####Test performed at: [place] [address] Internal Medicine Consultati onon 09-04-2020 Internal Medicine Consultation [facility] Patient: CARROLL FUENTES [address] [place] [address] MR#: [id number] CONSULTATION - Internal Medicine : 58 Service [...] of Systems (more content not included)... Normal [facility] OPERATIVE REPORTon OPERATIVE REPORT NAME: CARROLL FUENTES MR#: [id number] SURGEON: Tera Hernandez MD DATE OF SURGERY: [...] were no complications. TERA HERNANDEZ MD [facility] PT NAME: CARROLL FUENTES MR#: [id number] [address] [place] [address] ACCT: [id number] : 58 OPERATIVE REPORT JFS/[id number] E/S: Tera Hernandez MD 09/18/20 1207 Electronically Signed [facility] PT NAME: CARROLL FUENTES MR#: [id number] [address] [place], [place] [address] ACCT: [id number] : 58 OPERATIVE REPORT Normal [facility] Primary Residenton Primary Resident [facility] Pt Name: CARROLL FUENTES MR#: [id number] [address] [place] [address] ACCT: [id number] [place] [address] : 58 Service Date: 09/04/20 1603 Primary Resident/Call Primary Resident: [id number] [address] After Hours Call: [phone] Red Team Electronically Signed eSign Date and Time Ana Flanagan RES 09/16/20 1521 Normal [facility] LUMBAR SPINE 2 OR 3 VIEWSon 09-03-2020 LUMBAR SPINE 2 OR 3 VIEWS STUDY: LUMBAR SPINE 2 OR 3 VIEWS; 09/04/2020 2:57 pm INDICATION: LEFT L4-L5 LAMINECTOMY,FORAMINOTO MY,DECOMPRESSION. COMPARISON: None. ACCESSION NUMBER(S): [id number] ORDERING CLINICIAN: Tera Hernandez FINDINGS: Intraoperative fluoroscopy of the lumbar spine demonstrates surgical instruments posterior to L5. IMPRESSION: As above Normal [facility] CHEST PA/AP & LATERALon CHEST PA/AP & LATERAL STUDY: CHEST PA/AP LATERAL; 08/25/2020 11:00 am INDICATION: SOB/PAT. COMPARISON: None. ACCESSION NUMBER(S): [id number] ORDERING CLINICIAN: Madelyn Leone FINDINGS: The lungs are clear without pleural effusion. Normal heart size, mediastinum, elzbieta, and pulmonary vasculature. IMPRESSION: No active disease in the chest. Normal [facility] CONSULTATION REPORTon 2020 CONSULTATION REPORT NAME: CARROLL FUENTES MR#: [id number] LONG LINE TEAMSTER: Madelyn Leone MD DATE OF CONSULTATION: 08/25/2020 [...] ox is 98% on room air. [facility] PT NAME: CARROLL FUENTES MR#: [id number] [address] [place] [address] ACCT: [id number] : 58 CONSULTATION HEENT: Atraumatic head. Pupils [...] we are getting the results from her surveyor in [place]. IMPRESSION: 1. Preop clearance for L4-L5 disk [...] courtesy of this consultation. MADELYN LEONE MD [id number] E/S: Madelyn Leone MD 08/26/20 1750 Electronically Signed [facility] PT NAME: CARROLL FUENTES MR#: [id number] [address] [place] [address] ACCT: [id number] : 58 CONSULTATION Normal [facility] LUMB SP COMP W FLEX/EXT 6 VW S>on 08-08-2020 LUMB SP COMP W FLEX/EXT 6 VWS> STUDY: LUMB SP COMP W FLEX/EXT 6 VWS>; 08/08/2020 9:43 am INDICATION: BACK PAIN. COMPARISON: No available comparisons. ACCESSION NUMBER(S): [id number] ORDERING CLINICIAN: Tera Hernandez TECHNIQUE: 6 views [...] L5-S1 level. No evidence of instability.. Normal [facility] XR SHLDR >/=3V AP/RUSH AP/OTH [...] on Jul 03 2018 10:17AM EST [id number] [facility] ANES Holly 06-20-2018 ANES POST HNO ID: [id number] Author: Rohit Velarde Service: Anesthesiology Author Type: [...] 20, 2018 TIME: 2:38 PM PAGER/CONTACT #: [facility] ANES PREOPon 06-20-2018 ANES PREOP HNO ID: [id number] Author: Rohit Velarde Service: Anesthesiology Author Type: [...] June 20, 2018 TIME: 9:35 AM CSN: [id number] [facility] BRIEF OP NOTon 06-20-2018 BRIEF OP NOT HNO ID: [id number] Author: Kusum Francisco Service: Orthopaedic Surgery Author Type: Resident Type: Brief Op Note Filed: 06/20/2018 5:49 PM Note Text: BRIEF OP NOTE LOG ID: [id number] Surgery/Procedure Date: 06/20/2018 Incision/Procedure Start Time: 11:18 AM Incision Close/Procedure End Time: 1:17 PM Surgeon(s)/Procedurali st(s) and Business Management Intern(s): Surgeon(s) and Role: * Jenna Garsia - [...] 20, 2018 TIME: 5:49 PM PAGER/CONTACT #: [facility] CASE MANAGEMon 06-20-2018 CASE MANAGEM HNO ID: [id number] Author: May Herrera (Sw) Service: Care Management Author Type: Food Service Attendant Type: Care Mgt Progress Note Filed: 06/20/2018 [...] is pcp summary of care sent via Closely () Nurse to provide discharge instructions. TRANSPORTATION ARRANGEMENTS: Car Spouse ADDITIONAL CONTACT RESOURCES: Needs Prior to Discharge: Ready for Discharge Appointments for Next 45 Days Date Time Provider Location Dept Phone 07/03/2018 10:00 AM CAROLA BAPTISTE AT [phone] 07/03/2018 10:30 AM GABRIEL CANTU) LATOSHA AT [phone] 07/31/2018 2:15 PM JENNA GARSIA AT [phone] Pt to be discharged home to follow up as above. SIGNATURE: DARIO Saini PATIENT NAME: Carroll Fuentes DATE: June 20, 2018 TIME: 5:31 PM PAGER/CONTACT #: [phone] [facility] CASE MGT INIT [facility] 2018 CASE MGT INIT [facility] HNO ID: [id number] Author: May Herrera (Sw) Service: Care Management Author Type: Food Service Attendant Type: Care Mgt Initial Assessment Filed: 06/20/2018 5:31 PM Note Text: CARE MANAGEMENT: ASSESSMENT AND DISCHARGE PLAN SERVICE DATE: 06/20/2018 SERVICE TIME: 5:27p PRIMARY CARE PHYSICIAN: Robert Villasenor MD ADMISSION STATUS: Inpatient Needs Prior to Discharge: Ready for Discharge MEDICAL: Patient/Nursing Instructor Stated Goals: To improve my functional [...] Financial Resources: 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 O.Therapy recommend home. Spouse visiting at bedside and will transport pt home later today.Further discharge needs not anticipated.SW/TCC to follow to assist with plans for discharge. SIGNATURE: DARIO Saini PATIENT NAME: Carroll Fuentes DATE: June 20, 2018 TIME: 5:27 PM PAGER/CONTACT #: [phone] [facility] CONSULTon 06-20-2018 CONSULT HNO ID: [id number] Author: Dulce Green Service: General Internal Medicine [...] Disp: Rfl: 06/19/2018 at 0630 rizatriptan (MAXALT FIREBREAK CUTTER) 10 mg disintegrating tablet DISSOLVE 1 TABLET [...] the care of your patient. Dulce Green APRN.FINE GRADE OPERATOR June 20, 2018 4:34 PM Normal [facility] NURSING PROGon 06-20-2018 Protein mass conc HNO ID: [id number] Author: Fela ValenciaRn) FLETCHER Phillips Service: (none) [...] at bedside. 1720. Dr. Meeks and Dulce DIRECTOR OF OPERATIONS at bedside, plan is to stay for [...] with pt. This note was completed by: Feal Phillips RN [facility] Protein mass conc HNO ID: [id number] Author: Wendy (Rn) FLETCHER Underwood Service: Nursing [...] note was completed by: Wendy Underwood RN [facility] OPERATIVE NOon 06-20-2018 OPERATIVE NO HNO ID: [id number] Author: Jenna Garsia Service: Orthopaedic Surgery Author Type: Physician Type: Operative Report Filed: 06/20/2018 1:25 PM Note Text: [place] [id number] [place] OPERATIVE REPORT NAME: [facility] #: [id number] DATE: 06/20/2018 (11:18am-1:17pm) AGE: 58 SURGEON 1: Jenna Garsia M.D. JUNIOR COPYWRITER: 1. Augie Coates M.D. 2. Kusum Prasad M.D. 3. Mundo Pablo OPERATION: Right total shoulder arthroplasty, biceps tenodesis. ANESTHESIA: General anesthesia with regional interscalene nerve block for postoperative pain control. PREOPERATIVE DIAGNOSIS: Right shoulder primary glenohumeral osteoarthritis. POSTOPERATIVE DIAGNOSIS: Right shoulder primary glenohumeral osteoarthritis, biceps tendinopathy. OPERATIVE INDICATIONS: The patient is a 58 year oldnrg-odbm-ahk right-hand dominant white female who has a [...] rotator interval stitch was then passed in kslubc-os-iubxj fashion with a #2 Ticron suture and tied down to close the lateral rotator interval and set the osteotomy superiorly. The two #2 Fiberwire sutures coming out of the bicipital groove were then sequentially passed in a syikzu-pf-xieuj fashion medial to the horizontal mattress and [...] none COMPLICATIONS: none apparent Jenna Garsia M.D. [facility] PT EDon 06-20-2018 PT ED HNO ID: [id number] Author: Cindy Cervantes) Gaby, RN Service: (none) [...] Signed By: Cindy Griffin RN In Department: [facility] Normal [facility] THERAPY NTon 06-20-2018 THERAPY NT HNO ID: [id number] Author: Abi ValenciaOt) Alan Service: Occupational Therapy Author Type: Occupational Therapist Type: Therapy (PT/OT/Speech/Resp) Filed: 06/20/2018 4:59 PM Note Text: Occupational Therapy Evaluation SERVICE DATE: 06/20/2018 SERVICE TIME: 1550 to 1640 ROOM: [address] Recommended Discharge Disposition: Home Anticipated Discharge [...] daily living (ADL) Interventions Provided: Evaluation;Therapeutic Exercise (70133);Self Mcc Management (58706) $ Evaluation-Low (84671) Billed Units: 1 unit Therapeutic Exercise (74953) Treatment Minutes: 10 1 unit Skilled Intervention(s): Education in Self Mcc Management (11727) Treatment Minutes: 28 2 units Skilled Intervention(s): [...] Patient Lives With: Spouse Assistance Available: time broker Number Of Stairs To Bed/Bath: 0 Equipment [...] DATE: June 20, 2018 TIME: 4:54 PM [facility] XR SHOULDER 2V AP/TRUE AP RT on 06-20-2018 XR SHOULDER 2V AP/TRUE AP RT * * *Final Report* * * DATE OF EXAM: Jun 20 2018 1:45PM [facility] 5255 - XR SHOULDER 2V AP/TRUE AP [...] Jun 20 2018 2:04PM EST [id number] Normal [facility] NURSING PROGon 06-09-2018 Protein mass conc HNO ID: [id number] Author: Ivana (Rn) FLETCHER Heller Service: Nursing [...] 2018 11:10 AM Addendum 06/15/18 EKG IN [facility] FINAL Ivana Heller RN June 15, 2018 4:39 PM Normal [facility] Type and SCR (30D)on 019 ABO/RH(D) Positive [facility] HOSPon 04-28-2018 HOSP Patient:Adalberto Fuentes MRN: Height:5' 2 (1.575 m) Weight:186 lb (84.369 kg) Outpatient Medications as of 06/20/18: calcium phosphate dibas/vit D3 (VITAMIN D, WITH CALCIUM, ORAL) docusate sodium (COLACE) 100 mg capsule aspirin, enteric coated (ECOTRIN LOW STRENGTH) 81 mg EC tablet oxyCODONE-acetaminophe n (PERCOCET) 5-325 mg tablet rizatriptan (MAXALT FIREBREAK CUTTER) 10 mg disintegrating tablet mupirocin (BACTROBAN) 2 [...] 46.0 36.0 Progress Notes (RADIO CT SCAN [facility]): RT Lillian, John 06/07/2018 10:04 [...] RT Lillian June 07, 2018 9:54 AM [facility] Vital Signs Date Time Vital Sign Value Performing Clinician Facility 11-28-2024 13:37-0400 Body height 154.94 cm Robert Ball DO Work Phone: [facility] 11-28-2024 13:37-0400 Body mass index (BMI) [Ratio] 31.8 kg/m2 Robert Ball DO Work Phone: [facility] 11-28-2024 13:37-0400 Body weight 76.43 kg Robert Ball DO Work Phone: [facility] 11-28-2024 13:37-0400 Diastolic blood pressure 72 mm[Hg] Robert Ball DO Work Phone: [facility] 11-28-2024 13:37-0400 Heart rate 77 /min Robert Ball DO Work Phone: [facility] 11-28-2024 13:37-0400 Respiratory rate 12 /min Robert Ball DO Work Phone: [facility] 11-28-2024 13:37-0400 Systolic blood pressure 107 mm[Hg] Robert Ball DO Work Phone: [facility] 10-11-2024 10:42-0400 Body height 154.94 cm Robert Ball DO Work Phone: [facility] 10-11-2024 10:42-0400 Body mass index (BMI) [Ratio] 31.8 kg/m2 Robert Ball DO Work Phone: [facility] 10-11-2024 10:42-0400 Body weight 76.31 kg Robert Ball DO Work Phone: [facility] 10-11-2024 10:42-0400 Diastolic blood pressure 69 mm[Hg] Robert Ball DO Work Phone: [facility] 10-11-2024 10:42-0400 Heart rate 66 /min Robert Ball DO Work Phone: [facility] 10-11-2024 10:42-0400 Respiratory rate 12 /min Robert Ball DO Work Phone: [facility] 10-11-2024 10:42-0400 Systolic blood pressure 103 mm[Hg] Robert Ball DO Work Phone: [facility] 09-12-2024 15:22-0400 Body height 154.94 cm Robert Ball DO Work Phone: [facility] 09-12-2024 15:22-0400 Body mass index (BMI) [Ratio] 32.3 kg/m2 Robert Ball DO Work Phone: [facility] 09-12-2024 15:22-0400 Body weight 77.79 kg Robert Ball DO Work Phone: [facility] 09-12-2024 15:22-0400 Diastolic blood pressure 79 mm[Hg] Robert Ball DO Work Phone: [facility] 09-12-2024 15:22-0400 Heart rate 69 /min Robert Ball DO Work Phone: [facility] 09-12-2024 15:22-0400 Respiratory rate 12 /min Robert Ball DO Work Phone: [facility] 09-12-2024 15:22-0400 Systolic blood pressure 133 mm[Hg] Robert Ball DO Work Phone: [facility] 07-25-2024 09:00-0400 Diastolic blood pressure 79 mm[Hg] [facility] 07-25-2024 09:00-0400 Heart rate 66 /min [facility] 07-25-2024 09:00-0400 Respiratory rate 12 /min [facility] 07-25-2024 09:00-0400 Systolic blood pressure 161 mm[Hg] [facility] 07-18-2024 10:47-0400 Body height 154.94 cm [facility] 07-18-2024 10:47-0400 Body mass index (BMI) [Ratio] 32.8 kg/m2 [facility] 07-18-2024 10:47-0400 Body weight 78.95 kg [facility] 07-18-2024 10:47-0400 Diastolic blood pressure 74 mm[Hg] [facility] 07-18-2024 10:47-0400 Heart rate 68 /min [facility] 07-18-2024 10:47-0400 Respiratory rate 12 /min [facility] 07-18-2024 10:47-0400 Systolic blood pressure 134 mm[Hg] [facility] 07-13-2024 10:11-0400 Body height 154.94 cm [facility] 07-13-2024 10:11-0400 Body mass index (BMI) [Ratio] 32.9 kg/m2 [facility] 07-13-2024 10:11-0400 Body weight 79.01 kg [facility] 07-13-2024 10:11-0400 Diastolic blood pressure 77 mm[Hg] [facility] 07-13-2024 10:11-0400 Heart rate 65 /min [facility] 07-13-2024 10:11-0400 Respiratory rate 12 /min [facility] 07-13-2024 10:11-0400 Systolic blood pressure 117 mm[Hg] [facility] 07-11-2024 08:30-0400 Body temperature 98.6 [degF] Jose Sharif MD Work Phone: [employer] [facility] 07-11-2024 08:30-0400 Diastolic blood pressure 62 mm[Hg] Jose Sharif MD Work Phone: [facility] [employer] [facility] 07-11-2024 08:30-0400 Heart rate 88 /min Jose Sharif MD Work Phone: [facility] [employer] [facility] 07-11-2024 08:30-0400 Respiratory rate 16 /min Jose Sharif MD Work Phone: [facility] [employer] 07-11-2024 08:30-0400 SaO2% (BldA) [Mass fraction] 98 % Jose Sharif MD Work Phone: [facility] [employer] 07-11-2024 08:30-0400 Systolic blood pressure 117 mm[Hg] Jose Sharif MD Work Phone: [facility] [employer] 07-06-2024 20:16-0400 Body height 154.9 cm Jose Sharif MD Work Phone: [facility] [employer] 07-06-2024 20:16-0400 Body mass index (BMI) [Ratio] 33.07 kg/m2 Jose Sharif MD Work Phone: [facility] [employer] 07-06-2024 20:16-0400 Body weight 79.38 kg Jose Sharif MD Work Phone: [email or web address] 07-04-2024 15:04-0400 Body height 154.94 cm [facility] 07-04-2024 15:04-0400 Body mass index (BMI) [Ratio] 32.9 kg/m2 [facility] 07-04-2024 15:04-0400 Body weight 79.06 kg [facility] 07-04-2024 15:04-0400 Diastolic blood pressure 79 mm[Hg] [facility] 07-04-2024 15:04-0400 Heart rate 69 /min [facility] 07-04-2024 15:04-0400 Respiratory rate 12 /min [facility] 07-04-2024 15:04-0400 Systolic blood pressure 177 mm[Hg] [facility] 06-25-2024 10:11-0500 Body temperature 97.3 [degF] [facility] 06-25-2024 10:11-0500 Diastolic blood pressure 76 mm[Hg] [facility] 06-25-2024 10:11-0500 Heart rate 54 /min [facility] 06-25-2024 10:11-0500 Respiratory rate 16 /min [facility] 06-25-2024 10:11-0500 SaO2% (BldA) [Mass fraction] 98 % [facility] 06-25-2024 10:11-0500 Systolic blood pressure 119 mm[Hg] [facility] 06-25-2024 10:07-0500 Body height 154.94 cm [facility] 06-25-2024 10:07-0500 Body mass index (BMI) [Ratio] 32.9 kg/m2 [facility] 06-25-2024 10:07-0500 Body weight 79.15 kg [facility] 02-24-2024 14:13-0400 Body height 154.94 cm [facility] 02-24-2024 14:13-0400 Body mass index (BMI) [Ratio] 33.1 kg/m2 [facility] 02-24-2024 14:13-0400 Body temperature 96 [degF] [facility] 02-24-2024 14:13-0400 Body weight 79.6 kg [facility] 02-24-2024 14:13-0400 Diastolic blood pressure 84 mm[Hg] [facility] 02-24-2024 14:13-0400 Heart rate 66 /min [facility] 02-24-2024 14:13-0400 Systolic blood pressure 159 mm[Hg] [facility] 12-20-2023 15:35-0400 Body height 154.94 cm [facility] 12-20-2023 15:35-0400 Body mass index (BMI) [Ratio] 33.8 kg/m2 [facility] 12-20-2023 15:35-0400 Body weight 81.19 kg [facility] 12-20-2023 15:35-0400 Diastolic blood pressure 80 mm[Hg] [facility] 12-20-2023 15:35-0400 Heart rate 78 /min [facility] 12-20-2023 15:35-0400 Respiratory rate 12 /min [facility] 12-20-2023 15:35-0400 Systolic blood pressure 134 mm[Hg] [facility] 04-29-2023 09:00-0500 Body height 154.94 cm Robert Ball Other [employer] Other 04-29-2023 09:00-0500 Body mass index (BMI) [Ratio] 33.14 kg/m2 Robert Ball Other [employer] Other 04-29-2023 09:00-0500 Body weight 79.56 kg Robert Ball Other [employer] Other 04-29-2023 09:00-0500 Diastolic blood pressure 89 mm[Hg] Robert Ball Other [employer] Other 04-29-2023 09:00-0500 Respiratory rate 12 /min Robert Ball Other [employer] Other 04-29-2023 09:00-0500 Systolic blood pressure 155 mm[Hg] Robert Ball Other [employer] Other 12-20-2022 13:45-0400 Body height 154.94 cm Robert Ball Other [employer] Other 12-20-2022 13:45-0400 Body mass index (BMI) [Ratio] 34.12 kg/m2 Robert Ball Other [employer] Other 12-20-2022 13:45-0400 Body weight 81.92 kg Robert Ball Other [employer] Other 12-20-2022 13:45-0400 Diastolic blood pressure 96 mm[Hg] Robert Ball Other [employer] Other 12-20-2022 13:45-0400 Respiratory rate 12 /min Robert Ball Other [employer] Other 12-20-2022 13:45-0400 Systolic blood pressure 179 mm[Hg] Robert Villasenor Other [employer] Other 08-04-2022 09:45-0400 Body height 154.94 cm Robert Villasenor Other [employer] Other 08-04-2022 09:45-0400 Body mass index (BMI) [Ratio] 33.33 kg/m2 Robert Villasenor Other [employer] Other 08-04-2022 09:45-0400 Body weight 80.02 kg Robert Villasenor Other [employer] Other 08-04-2022 09:45-0400 Diastolic blood pressure 77 mm[Hg] Robert Villasenor Other [employer] Other 08-04-2022 09:45-0400 Respiratory rate 12 /min Robert Villasenor Other [employer] Other 08-04-2022 09:45-0400 Systolic blood pressure 128 mm[Hg] Robert Villasenor Other [employer] Other Encounters Encounter Date Encounter Type Care Provider Facility Start: 11-28-2024 End: 11-28-2024 ambulatory Robert Villasenor DO Work Phone: [facility] Work Phone: Start: 11-28-2024 End: 11-28-2024 Patient encounter procedure Robert Villasenor DO -[facility] Work Phone: Start: 11-23-2024 End: 11-25-2024 ambulatory ROBERT HAMILTON [facility] Start: 11-23-2024 End: 11-25-2024 Subsequent hospital visit by physician Tomás Helton DO Work Phone: [facility] MRI Comment on above: Osteoarthritis of ri ght knee, unspecified osteoarthritis type Start: 10-13-2024 Non-patient / Non-visit Robert barnard naaptol -[employer] Work Phone: Start: 10-11-2024 End: 10-11-2024 Patient encounter procedure Robert Villasenor [facility] Work Phone: Start: 10-11-2024 End: 10-11-2024 Patient encounter status Robert Villasenor DO [facility] Start: 09-21-2024 Non-patient / Non-visit Robert barnard naaptol -[place] [employer] Work Phone: Start: 09-14-2024 Non-patient / Non-visit Robert barnard DO -[facility] Work Phone: Start: 09-12-2024 End: 09-12-2024 Patient encounter procedure Robert Villasenor [facility] Work Phone: Start: 07-25-2024 End: 07-25-2024 ambulatory [facility] Work Phone: Start: 07-25-2024 End: 07-25-2024 Patient encounter procedure [facility] Work Phone: Start: 07-18-2024 End: 07-18-2024 ambulatory [facility] Work Phone: Start: 07-18-2024 End: 07-18-2024 Patient encounter procedure [facility] Work Phone: Start: 07-18-2024 Non-patient / Non-visit [facility] Work Phone: Start: 07-13-2024 End: 07-13-2024 ambulatory [facility] Work Phone: Start: 07-13-2024 End: 07-13-2024 Patient encounter procedure [facility] Work Phone: Start: 07-12-2024 Non-patient / Non-visit [facility] Work Phone: Start: 07-11-2024 Non-patient / Non-visit [facility] Work Phone: Start: 07-06-2024 End: 07-11-2024 Evaluation and management of inpatient Jose Sharif MD Work Phone: [facility] Start: 07-04-2024 End: 07-04-[address] [facility] Work Phone: Start: 07-04-2024 End: 07-04-2024 Encounter for other preprocedural examination [facility] Start: 07-04-2024 End: 07-04-2024 Patient encounter procedure [facility] Work Phone: Start: 06-27-2024 Non-patient / Non-visit [facility] Work Phone: Start: 06-25-2024 End: 06-25-[address] [facility] Work Phone: Start: 06-25-2024 End: 06-25-2024 Patient encounter procedure [facility] Work Phone: Start: 06-21-2024 ambulatory Raisa PRICE Facility:[facility] Start: 06-01-2024 Non-patient / Non-visit [facility] Work Phone: Start: 05-31-2024 Non-patient / Non-visit [facility] Work Phone: Start: 04-09-2024 End: 04-09-2024 ambulatory Miriam Barron MD Facility: [facility] Start: 02-24-2024 End: 02-24-[address] [facility] Work Phone: Start: 02-24-2024 End: 02-24-2024 Patient encounter procedure [facility] Work Phone: Start: 02-22-2024 Non-patient / Non-visit [facility] Work Phone: Start: 12-27-2023 Non-patient / Non-visit [facility] Work Phone: Start: 12-20-2023 Patient encounter status [facility] Start: 12-20-2023 End: 12-20-[address] [facility] Work Phone: Start: 12-20-2023 End: 12-20-2023 Patient encounter procedure [facility] Work Phone: Start: 09-26-2023 End: 09-26-2023 ambulatory Miriam Barron MD Facility: [facility] Start: 08-15-2023 End: 08-15-2023 ambulatory Andvalentine Barron MD Facility: [facility] Start: 08-08-2023 End: 08-08-2023 ambulatory Miriam Barron MD Facility: [facility] Start: 06-27-2023 End: 06-27-2023 ambulatory Miriam Barron MD Facility: [facility] Start: 06-06-2023 End: 06-06-2023 ambulatory Miriam Barron MD Facility: [facility] Start: 06-01-2023 End: 06-01-2023 ambulatory Robert Villasenor Other [employer] Other Start: 06-01-2023 Telephone encounter Robert Villasenor [facility] Start: 05-23-2023 End: 05-23-2023 ambulatory Miriam Barron MD Facility: [facility] Start: 05-13-2023 End: 05-13-2023 ambulatory Robert Villasenor Other [employer] Other Start: 05-13-2023 Telephone encounter Robert Ball [facility] Start: 05-09-2023 End: 05-09-2023 ambulatory Robert Ball Other [employer] Other Start: 05-09-2023 Telephone encounter Robert Ball [facility] Start: 05-04-2023 End: 05-04-2023 ambulatory Robert Ball Other [employer] Other Start: 05-04-2023 Telephone encounter Robert Ball [facility] Start: 05-02-2023 End: 05-02-2023 ambulatory Robert Ball Other [employer] Other Start: 05-02-2023 Telephone encounter Robert Ball [facility] Start: 04-29-2023 End: 04-29-2023 ambulatory Robert Ball Other [employer] Other Start: 04-29-2023 Office outpatient vi sit 15 minutes Robert Ball [facility] Start: 04-04-2023 End: 04-04-2023 ambulatory Robert Ball Other [employer] Other Start: 04-04-2023 Telephone encounter Robert Ball [facility] Start: 01-24-2023 End: 01-24-2023 ambulatory Robert Ball Other [employer] Other Start: 01-24-2023 Telephone encounter Robert Ball [facility] Start: 12-23-2022 End: 12-23-2022 ambulatory Robert Ball Other [employer] Other Start: 12-23-2022 Telephone encounter Robert Ball [facility] Start: 12-20-2022 End: 12-20-2022 ambulatory Robert Ball Other [employer] Other Start: 12-20-2022 Office outpatient vi sit 15 minutes Robert Hamilton [facility] Start: 12-17-2022 End: 12-17-2022 ambulatory Robert Villasenor Other [employer] Other Start: 12-17-2022 Telephone encounter Robert [facility] Start: 11-08-2022 End: 11-08-2022 ambulatory Robert Villasenor Other [employer] Other Start: 11-08-2022 Telephone encounter Robert Villasenor [facility] Start: 10-22-2022 End: 10-22-2022 ambulatory Robert Villasenor Other [employer] Other Start: 10-22-2022 Telephone encounter Robert Villasenor [facility] Start: 10-13-2022 End: 10-13-2022 ambulatory Robert Villasenor Other [employer] Other Start: 10-13-2022 Telephone encounter Robert Villasenor [facility] Start: 09-27-2022 End: 09-27-2022 ambulatory Robert Villasenor Other [employer] Other Start: 09-27-2022 Telephone encounter Robert Hamilton FP [facility] Start: 08-23-2022 End: 08-24-[address] RISHI PARKER Facility:[facility] Start: 08-04-2022 End: 08-04-2022 ambulatory Robert Villasenor Other [employer] Other Start: 08-04-2022 Office outpatient vi sit 25 minutes Robert Villasenor [facility] Start: 04-03-2022 Encounter for genera l adult medical examination without abnormal findings DR ROBERT VILLASENOR [facility] Start: 03-30-2022 End: 03-31-[address] [...] Start: 07-03-2018 End: 07-03-2018 Patient encounter procedure [facility] Start: 06-20-2018 End: 06-20-2018 Evaluation and management of inpatient [facility] Procedures Date Procedure Procedure Detail Performing Clinician [...] 60 yrs+ (1 - 1-dose 75+ series) [facility] Start: 07-11-2025 GFR test (Diabetes, CKD 3-4, OR last GFR 15-59) GFR test (Diabetes, CKD 3-4, OR last GFR 15-59) [facility] Start: 11-23-2024 Influenza vaccination Flu vaccine (# 1) [facility] Start: 04-25-2024 Annual Wellness Visi t (Medicare Advantage) Annual Wellness Visit (Medicare Advantage) [facility] Start: 12-25-2023 COVID-19 Vaccine ( season) COVID-19 Vaccine ( season) [facility] Start: 2014 Screening for osteoporosis DEXA (modify frequency per FRAX score) [facility] Start: 2009 Pneumococcal 50+ yea rs Vaccine (1 of 1 - PCV) Pneumococcal 50+ years Vaccine (1 of 1 - PCV) [facility] Start: 2009 Shingles vaccine (1 of 2) Shingles vaccine (1 of 2) [facility] Start: 2004 Screening for malign ant neoplasm of colon [facility] Start: 1999 Screening for malign ant neoplasm of breast Breast cancer screen [facility] Start: 1994 Diabetes screen Diabetes screen [facility] Start: 1989 Screening for malign ant neoplasm of cervix [facility] Start: 1980 Screening for malign ant neoplasm of cervix Pap smear [facility] Start: 1978 DTaP/Tdap/Td vaccine (1 - Tdap) DTaP/Tdap/Td vaccine (1 - Tdap) [facility] Start: 1978 Pneumococcal 50+ yea rs Vaccine (1 of 2 - PCV) Pneumococcal 50+ years Vaccine (1 of 2 - PCV) [facility] Start: 1977 Glaucoma screening Diabetic retinal exam [facility] Start: 1977 Hepatitis C screening Hepatitis C sc reen [facility] Start: 1977 Urine screening for protein Diabetic Alb to Cr ratio (uACR) test [facility] Start: 1974 HIV screening HIV screen [facility] Start: 1971 Depression Screen Depression Screen [facility] Start: 1969 Diabetic foot examination Diabetic foot exam [facility] Start: 1969 Hemoglobin A1c measurement A1C test (Diabetic or Prediabetic) [facility] Start: 1969 Lipid panel Lipids [facility] End: 07-15-2024 Basic metabolic 2000 panel - Serum or Plasma Basic Metabolic Panel Lab Routine Daily for 1 Weeks starting 07/09/2024 until 07/15/2024, 3 completed [facility] Comment on above: Daily for [address] arting 07/09/2024 until 07/15/2024, 3 completed Comprehensive metabo lic 2000 panel - Serum or Plasma [facility] Comprehensive metabo lic 1999 panel - Serum or Plasma [facility] Comprehensive metabo lic 1999 panel - Serum or Plasma [facility] Glucose [Mass/volume ] in Serum or Plasma POCT Glucose Point of Care Testing STAT As Needed until discontinued starting 07/06/2024 [facility] Comment on above: As Needed until disc ontinued starting 07/06/2024 Glucose [Mass/volume ] in Serum or Plasma POCT glucose Point of Care Testing Routine 4X Daily (AC & HS) until discontinued starting 07/07/2024, 18 completed [facility] Comment on above: 4X Daily (AC & HS) u ntil discontinued starting 07/07/2024, 18 completed Glucose [Mass/volume ] in Serum or Plasma POCT Glucose Point of Care Testing STAT As Needed until discontinued starting 07/10/2024 [facility] Comment on above: As Needed until disc ontinued starting 07/10/2024 End: 07-15-2024 Hemoglobin and Hematocrit Hemoglobin and Hematocrit Lab Routine Daily for 1 Weeks starting 07/09/2024 until 07/15/2024, 3 completed [facility] Comment on above: Daily for [address] arting 07/09/2024 until 07/15/2024, 3 completed MG Breast - bilatera l Diagnostic [facility] End: 11-23-2024 MR Knee - right WO contrast [facility] Comment on above: 1 Occurrences starti ng 11/23/2024 until 11/23/2024 MR Knee - right WO contrast [facility] Oxygen therapy [[facility]] Initiate Oxygen Therapy Protocol Respiratory Care Routine As Needed until discontinued starting 07/08/2024 [facility] Comment on above: As Needed until disc ontinued starting 07/08/2024 Spirometry panel Incentive jesse metry Respiratory Care Routine Every 2hr while awake until discontinued starting 07/06/2024 [facility] Work Phone: Comment on above: Every 2hr while awak e until discontinued starting 07/06/2024 Spirometry panel Incentive jesse metry Respiratory Care Routine Every 2hr while awake until discontinued starting 07/08/2024 [facility] Comment on above: Every 2hr while awak e until discontinued starting 07/08/2024 [facility] Payers Date Payer Category Payer Unknown [id number] 2023 Unknown 2022 Blue Cross Blue Shield [id number] 2019 Unknown [id number] 2015 Unknown [id number] 1959 Self-pay [id number] 1959 Unknown [id number] 2.16.840.1.201245.3.579.2.5 93 1959 Unknown [id number] 2.16.840.1.175927.3.579.2.5 93 1959 Unknown [id number] 2.16.840.1.291012.3.579.2.5 93 1959 Unknown [id number] 2.16.840.1.001849.3.579.2.5 93 1959 Unknown [id number] 2.16.840.1.174977.3.579.2.5 93 1959 Unknown [id number] 2.16.840.1.046068.3.579.2.5 93 1959 Unknown [id number] 2.16.840.1.944680.3.579.2.1 96 1959 Unknown [id number] 2.16.840.1.979817.3.579.2.1 96 1959 Unknown [id number] 2.16.840.1.411116.3.579.2.1 96 1959 Unknown [id number] 2.16.840.1.014786.3.579.2.1 96 1959 Unknown [id number] 2.16.840.1.964046.3.579.2.1 96 1959 Unknown [id number] 2.16.840.1.559101.3.579.2.1 96 1959 Unknown [id number] 2.16.840.1.560739.3.579.2.1 96 1959 Unknown [id number] 2.16.840.1.996351.3.579.2.7 27 1959 Unknown [id number] 2.16.840.1.486040.3.579.2.9 3 1959 Unknown [id number] 2.16.840.1.011147.3.579.2.1 74 Medicare Medicare [id number] Unknown [id number] 2.16.840.1.465541.3.579.2.5 93 Unknown [id number] Unknown [facility] Health P lans MCR PFFS [id number] Social History Date Type Detail Facility Start: 07-06-2024 Sex Assigned At [employer] Other Start: 1960 Sex Assigned At Female [facility] Tobacco smoking stat us NHIS Unknown if ever smoked [facility] Work Phone: Start: 06-04-2012 End: 06-25-2024 Sex Female (finding) [facility] Start: 07-06-2024 End: 10-11-2024 Tobacco smoking status NHIS Never smoked tobacco [facility] Start: 07-06-2024 Tobacco use and exposure Smokeless tobacco non-user [facility] Start: 07-09-2024 Alcoholic beverage intake Lifetime non-drinker (finding) [facility] Start: 07-06-2024 History of Social function [email or web address] Has the electric, Waller[employer] s, oil, or water company threatened to shut off services in your home in past 12Mo No [facility] (I/We) worried eladio er (my/our) food would run out before (I/we) got money to buy more. Never true [facility] In the past 12 month s, has lack of transportation kept you from medical appointments or from getting medications? No [facility] Start: 1960 Sex assigned at Not on file [facility] Medical Equipment Procedure Code Equipment Code Equipment Original Text Equipment Identifier Dates Screw Spnl L45mm Dia6.5mm Post Thoracolumbosacral Co Chrom - [id number] Start: 07-08-2024 Screw Spnl L40mm Dia6.5mm Post Thoracolumbosacral Co Chrom - [id number] Start: 07-08-2024 Set Scr Spnl L6m m Dia5.5mm Ti Brk Off Svetlana W/ Detach Cdh - [id number] Start: 07-08-2024 Evan Spnl L35mm D ia5.5mm Ant Post Thoracolumbosacral Ti - [id number] Start: 07-08-2024 Clinical Notes 08-04-2022 to [...] preventive visit noneactive October 11, 2024 10:26am [facility] Work Phone: 1(109) 336-536003-19-2025 History of Present illness Narrative* Bhavani Anderson [...] Rosales, PT - 07/10/2024 10:18 AM EDT [facility] INPATIENT PHYSICAL THERAPY EVALUATION [facility] 7K - 7K-21/021-A Discharge Recommendations: Continue [...] or urinary incontinence. 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 Ship Superintendent Goals Time Frame for Care Home Goals : NA due to short ELOS Following session, patient left in safe position with all fall risk precautions in place. Pt in bedfollowing session, all needs and call light in reach, alarm on. * America Waters OTA - 07/10/2024 8:30 AM EDT [facility] Occupational Therapy Daily Note Discharge Recommendations: Home with Home Health OT Equipment Recommendations: No Monitor need for LHAE. Time In: 0800 Time Out: 08 Timed Code Treatment Minutes: 28 Minutes Minutes: 28 Date: 07/10/2024 Patient Name: Carroll Fuentes, Gender: female Room: [facility]21/021-A : 1960 (64 y.o.) Referring Practitioner: Dank [...] or urinary incontinence. 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 Patient pleasant and cooperative throughout session. PAIN: 10/02: Vitals: Vitals not assessed per clinical judgement, see nursing flowsheet COGNITION: WFL ADL: Grooming: Modified Independent. Hair care seated in bedside chair Upper Extremity Dressing: Minimal Assistance. Carroll/doff house robe Lower Extremity Dressing: Minimal Assistance. With mounter clarinets in order to carroll/doff hospital shorts with verbal/visual cues to complete, demonstrating good understanding. Footwear Management: Supervision, X 1, with verbal cues , and with increased time for completion. Utilized mounter clarinets/sock aid in order to doff/carroll B socks [...] indep within home environment. Additional Goals?: No Care Home Goals Time Frame for Ship Superintendent Goals : No LTGs d/t short estimated [...] Rosales, PT - 07/09/2024 2:49 PM EDT [facility] PHYSICAL THERAPY MISSED TREATMENT NOTE [facility] 7K Date: 07/09/2024 Patient Name: Carroll Fuentes : 1960 (64 y.o.) Gender: female REASON FOR MISSED TREATMENT: Missed Treat. Attempted x3 today. 1st attempt, pt with tech on BSC and then requesting to eat breakfast. 2nd attempt, OT with pt. 3rd attempt, lead case manager in room to complete assessment. * Angela Dawkins, OT - 07/09/2024 1:44 PM EDT [facility] INPATIENT OCCUPATIONAL THERAPY [facility] 7K EVALUATION Discharge Recommendations: Continue to [...] or urinary incontinence. 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 Additional Goals?: No Ship Superintendent Goals Time Frame for Care Home Goals : No LTGs d/t short estimated [...] pain 6/10 at this time, medicated by MARBLEIZER 1840 pt resting, resp easy. VSS 1850 pt awakens to voice, states pain 5/10 and tolerable. VSS 1900 c/o pain 7/10, medicated with 50 mcg fentanyl 1905 no change in pain status, medicated with 50 mcg fentanyl 1910 pt resting, resp easy. VSS 1915 pt resting, resp easy. VSS 1925 pt meets criteria for discharge from pacu at this time. Pt transported to [facility] in stable condition * Kusum Conte RN [...] EDT Spiritual Health History and Assessment/Progress Note [facility] (P) Initial Encounter, , , Name: Carroll Fuentes Age: 64 y.o. Sex: female Language: Kiswahili Latter Day: [employer] Intractable back pain Date: 07/07/2024 Total Time Calculated: (P) 14 min Spiritual Assessment began in [facility] 7K Referral/Consult From: (P) Nurse Encounter [...] and how she loves everything about the uatsdin. Patient finds peace and hope in her liliane as a anabaptism and desires to have sacrament of the sick by a laboratory scientist, before her surgery tomorrow afternoon. I told the patient that I will let the spiritual care team know. Offered patient words of encouragement, quoted Scripture, and prayed with the patient, at her request. Patient expressed gratitude. Made patient aware of supervisor coating availability and support. Patient Interventions include: Facilitated expression of thoughts and feelings, Explored spiritual coping/struggle/distress, Affirmed coping skills/support systems, and Provided sacramental/religiousritual Family/Friends Interventions include: No family/friends present Patient Plan of Care: Contact Liliane director community center for support or sacramental needs Family/Friends Plan of Care: No family/friends present [facility] Discharge instructions* Discharge Instructions* Bhavani [...] All vegetables, especially asparagus, pruitt sprouts, broccoli, [place] sprouts, cabbage, carrots, cauliflower, celery, corn, greens, [...] taking more than one drug. This includes [id number] medication and herb or dietary supplements. Plan [...] possible side effects documented in [facility] NotePROCEDURE: XR LUMBAR SPINE 1 VW [...] loss of vertebral body height is seen. [facility] [id number] NotePROCEDURE: XR LUMBAR SPINE 1 VW CLINICAL [...] Signed by: Sivakumar Betts MD 07/08/24 [facility] Evaluation note* Diagnosis Onset Date Resolution Status [...] medicine non eactive July 04, 2024 2:57pm [facility] Work Phone: 1(822) 679-471703-03-2025 Evaluation note* Diagnosis Onset Date Resolution Status [...] h hyperglycemia acute July 04, 2024 2:57pm [facility] Work Phone: 1(265) 693-606303-03-2025 Evaluation note* Diagnosis Onset Date Resolution Status [...] 2024 9:25am Acute blood loss anemia acute [facility] 2024 10:08am Adverse effect of mixed sedatives acute July 18, 2024 10:08am Central stenosis of spinal canal acu te July 18, 2024 10:08am Herniated intervertebral dis c of lumbar spine acute July 18, 2024 10:08am Hypotension due to hypovolemia acute July 18, 2024 10:08am Type 2 diabetes mellitus wit h hyperglycemia acute July 18, 2024 10:08am Visual hallucinations acute Mar 2024 10:08am [facility] Work Phone: 1(375) 153-687703-03-2025 Evaluation note* Diagnosis Onset Date Resolution Status [...] 2024 9:25am Acute blood loss anemia acute [facility] 2024 10:08am Central stenosis of spinal canal acu te July 18, 2024 10:08am Herniated intervertebral dis c of lumbar spine acute July 18, 2024 10:08am Hypotension due to hypovolemia acute July 18, 2024 10:08am Type 2 diabetes mellitus wit h hyperglycemia acute July 18, 2024 10:08am Visual hallucinations acute [facility] 2024 10:08am [facility] Work Phone: 1(651) 176-269602-07-2024 Evaluation note* Encounter Date Diagnosis Assessment Notes Treatment Notes Treatment Clinical Notes May, Autoimmune thyroiditis (ICD-10 - E06.3) May, Elevated cholesterol (ICD-10 - E78.00) May, Type 2 diabetes mellitus with hyperglycemia, without long-term current use of insulin (ICD-10 - E11.65) May, Primary hypertension (ICD-10 - I10) May, Intractable chronic migraine without aura and without status migrainosus (ICD-10 - G43.719) [facility] Other 01-15-2024 Evaluation note* Encounter Date Diagnosis Assessment Notes Treatment Notes Treatment Clinical Notes Apr, Intractable chronic migraine without aura and without status migrainosus (ICD-10 - G43.719) [facility] [facility] Other 01-08-2024 Evaluation note* Encounter Date Diagnosis Assessment Notes Treatment Notes Treatment Clinical Notes Apr, Intractable chronic migraine without aura and without status migrainosus (ICD-10 - G43.719) [facility] Other 01-05-2024 Evaluation note* Encounter Date [...] Begin Amitriptyline Stop Tizanidine. 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 May want to cut back on Zanaflex. [...] Pain in left shoulder (ICD-10 - M25.512) [facility] Other 06-30-2023 Evaluation note* Encounter Date Diagnosis Assessment Notes Treatment Notes Treatment Clinical Notes Sep, Type 2 diabetes mellitus with hyperglycemia, without long-term current use of insulin (ICD-10 - E11.65) [facility] Other 06-05-2023 Evaluation note* Encounter Date Diagnosis Assessment Notes Treatment Notes Treatment Clinical Notes Sep, Candidiasis, intertriginous (ICD-10 - B37.2) [facility] Other 04-12-2023 Evaluation note* Encounter Date [...] use, the patient reduces the risk for MN, CVA, HTN, cardiac dysrhythmias and sudden cardiac [...] Jul, Other specified hypothyroidism (ICD-10 - E03.8) [facility] [employer] Other Evaluation noteNo InformationNortThomas [facility] Hospital [employer] Other Evaluation noteNo assessment information available [facility] Work Phone: Evaluation note* Diagnosis Onset Date Resolution Status Cervical pain acute Cervical spondylosis acute Cervical pain acute Cervical spondylosis acute Painful lumpy right breast a cute [facility] Work Phone: Evaluation note* Diagnosis Intractable back pain- Primary Backache, unspecified Spinal stenosis of lumbar region with neurogenic claudication Spinal stenosis, lumbar region, with neurogenic claudication Primary hypertension Unspecified essential hypertension Type 2 diabetes mellitus, without long-term current use of insulin (HCC) documented in this encounter [facility] note* Diagnosis Osteoarthritis of right knee, unspecified osteoarthritis type documented in this encounter Keith Peter [facility] general Narrative - Reported* Type Description Date [...] LEFT HEART CATHETERIZATION 2015 Hospitalization History SEE [employer] Other History general Narrative - Reported* Type [...] Right knee arthroscopy 10/2022 Hospitalization History SEE [employer] Other Reason for referral (narrative)* Reason Evaluation of right knee pain Diagnosis 1 Strain of right knee , subsequent encounter (I05.845N) Referral Organization [facility] Hamilton roe Referring Provider First Name Robert Referring Provider Last Name Hamilton Referring Provider Specialty Internal Me yoni Referred Provider Rishi Parker Jr Referred Provider Specialty Orthopedic S urgery Referral Priority Routine [employer] Other Reason for referral (narrative)* Reason Referral for neck pa in Diagnosis 1 Cervicalgia (M54.2) Diagnosis 2 Cervical spondylosis (M47.812) Referral Organization [facility] Odette roe Referring Provider First Name Robert Referring Provider Last Name Hamilton Referring Provider Specialty Internal Me dicine Referred Organization [facility] Referred Address [address], [place],[address] Referred Provider Specialty Pain Medicin e Referral Priority Routine General Notes Patient has hx of ce rvical discectomy and fusion and presented w/ persistent neck pain, which radiated upwards causing a headache. She is being referred for treatment with the pain clinic. Clinical Notes Include MRI [employer] Other Rejrop for referral (narrative)No reason for referral information availableK[facility] Work Phone: Reason for visit Narrative* Auth/Cert Specialty Diagnoses / Procedures Referred By Jass adams Referred To Contact Diagnoses Intractable back pain large disc herniation Jose Sharif MD [address] [place] [address] Phone: tel: fax: [facility] [address] [place] [address] Referral ID Status Reason Start Date Expiration Date Visits Re quested Visits Authorized [id number] 1 1 [facility] for visit Narrative* Imaging (Routine) - Closed Specialty Diagnoses / Procedures Referred By Jass adams Referred To Contact Radiology Diagnoses Osteoarthritis of right knee, unspecified osteoarthritis type Procedures MRI KNEE RIGHT WO CONTRAST Tomás Helton, DO [address] [place] [address] Phone: tel: fax: Referral ID Status Reason Start Date Expiration Date Visits Re quested Visits Authorized [id number] Closed 11/14/2024 11/14/2025 1 1 [facility] Summary Purpose Family History No Family History [...] Documents on File Type Date Recorded Patient Nursing Instructor Expl anation ACP-Advance Directive 07/13/2024 10:35 PM [...] 2:57pm Type 2 diabetes mellitus with hyperglyce [facility] July 04, 2024 2:57pm Acute [...] 10:08am Type 2 diabetes mellitus with hyperglyce [facility] July 18, 2024 10:08am Visual [...] section and content) DATE CREATED AUTHOR 06/20/2018 [facility] DATE CREATED AUTHOR AUTHOR'S ORGANIZ ATION 07/04/2018 [facility] DATE CREATED AUTHOR AUTHOR'S ORGANIZ ATION 09/18/2020 [facility] DATE CREATED AUTHOR AUTHOR'S ORGANIZ ATION 08/27/2022 [facility] DATE CREATED AUTHOR AUTHOR'S ORGANIZ ATION 04/18/2024 [facility] DATE CREATED AUTHOR AUTHOR'S ORGANIZ ATION 06/23/2024 [facility] DATE CREATED AUTHOR AUTHOR'S ORGANIZ ATION 08/10/2024 [facility] DATE CREATED AUTHOR [...] Care Provider Active Start: September 14, 2024 oRbert Villasenor DO Attending Provider Active Sta rt: [...] July 04, 2024 End: July 04, 2024 Compressor Mechanic Relationship Specialty Start Date End Date Robert Villasenor DO [address] [place] [address] PCP - General Internal Medicine 07/06/24 Team [...] July 25, 2024 End: July 25, 2024 Compressor Mechanic Relationship Specialty Start Date End Date Robert Villasenor DO [address] [place] [address] PCP - General Internal Medicine 07/06/24 Goals [...] therapy., Post-op 171 (Given - Provider: Bhavani Anderosn RN) cyclobenzaprine (FLEXERIL) tablet 10 mg 10 [...] injection by adding 1 mL of environmental scientist-supplied sterile diluent or sterile water for injection [...] BE BASED ON THE PRIMARY CLINICAL RECORDS. [employer] provides no warranty or guarantee of the accuracy or completeness of information in this document.
--- NOTE | 2025-01-16 08:53 | PM.CN ---
Consult Note: HPI Data of Consult Patient: known to practice within the last 3 years Requesting Physician: Selina Presley NP Primary Care Provider: Robert Cruz, Consult Narrative Reason for consult: low back and right leg pain Narrative: Janny Fuentes a pleasant 64 year old female presents for evaluation and management of chronic low back and right leg pain. Previously underwent L4,[address] Wilcox, did have a fall 2 months ago with significant increase in pain and decline in functional ability. Pt currently following with Dr Wilcox who is proceeding with L3-4 decompression and fusion upcoming March 05. Pts has asked her to consider a second opinion, Dr Wilcox recommended trialing injections prior to surgery per pt however his most recent consult note does not reflect this. Pt has failed medrol dose pack, tramadol, lodine. utilizing lyrica 75mg BID with mild relief without side effects. utilizing cane for ambulation. Pain today 10/10 in low back right hip and right leg. cc:: CC: Selina Presley NP Review of Systems ROS Musculoskeletal Reports: back pain and extremity pain PFSH [facility] Medical History Shoulder pain, right ?M25.511 - Pain in right shoulder (ICD-10) Osteoarthritis ?M19.90 - Unspecified osteoarthritis, unspecified site (ICD-10) Low back pain ?M54.50 - Low back pain, unspecified (ICD-10) Neck pain ?M54.2 - Cervicalgia (ICD-10) TIA (transient ischemic attack) ?G45.9 - Transient cerebral ischemic attack, unspecified (ICD-10) Hearing deficit ?H91.90 - Unspecified hearing loss, unspecified ear (ICD-10) Acid reflux ?K21.9 - Gastro-esophageal reflux disease without esophagitis (ICD-10) Obesity ?E66.9 - Obesity, unspecified (ICD-10) Diabetes ?E11.9 - Type 2 diabetes mellitus without complications (ICD-10) Hypothyroid ?E03.9 - Hypothyroidism, unspecified (ICD-10) Sleep apnea ?G47.30 - Sleep apnea, unspecified (ICD-10) Irregular heart beat ?I49.9 - Cardiac arrhythmia, unspecified (ICD-10) High cholesterol ?E78.00 - Pure hypercholesterolemia, unspecified (ICD-10) Hypertension ?I10 - Essential (primary) hypertension (ICD-10) Surgical History H/O cosmetic surgery ?Z98.890 - Other specified postprocedural states (ICD-10) H/O thyroidectomy ?E89.0 - Postprocedural hypothyroidism (ICD-10) H/O lumbosacral spine surgery ?Z98.890 - Other specified postprocedural states (ICD-10) H/O operation on finger ?Z98.890 - Other specified postprocedural states (ICD-10) H/O carpal tunnel repair ?Z98.890 - Other specified postprocedural states (ICD-10) H/O arthroscopic knee surgery ?Z98.890 - Other specified postprocedural states (ICD-10) H/O: hysterectomy ?Z90.710 - Acquired absence of both cervix and uterus (ICD-10) Hx of appendectomy ?Z90.49 - Acquired absence of other specified parts of digestive tract (ICD-10) H/O exploratory laparotomy ?Z98.890 - Other specified postprocedural states (ICD-10) H/O: ?Z98.891 - History of uterine scar from previous surgery (ICD-10) H/O shoulder surgery ?Z98.890 - Other specified postprocedural states (ICD-10) H/O cervical spine surgery ?Z98.890 - Other specified postprocedural states (ICD-10) S/P cataract extraction ?Z98.49 - Cataract extraction status, unspecified eye (ICD-10) Social History Little interest or pleasure in doing things: not at all Feeling down, depressed, or hopeless: not at all Meds Home Medications and Allergies Home Medications ?Medication ?Instructions ?Recorded ?Confirmed ?Type atenolol 50 mg tablet 50 mg PO DAILY 09/28/22 07/24/24 History citalopram 40 mg tablet (Celexa) 40 mg PO DAILY 09/28/22 07/24/24 History glimepiride 4 mg tablet 4 mg PO DAILY 09/28/22 07/24/24 History levothyroxine 125 mcg tablet 125 mcg PO DAILY 09/28/22 07/24/24 History (Synthroid) metformin 500 mg tablet 500 mg PO BID 09/28/22 07/24/24 History pravastatin 40 mg tablet 40 mg PO DAILY 09/28/22 07/24/24 History tizanidine 4 mg tablet 4 mg PO .hs muscle spasticity 09/28/22 07/24/24 History clonazepam 1 mg tablet (Klonopin) 1.5 mg PO DAILY 05/18/23 07/24/24 History rizatriptan 10 mg tablet (Maxalt) 10 mg PO Q2H PRN migraine headache 05/18/23 07/24/24 History etodolac 500 mg tablet 500 mg PO BID 05/09/24 07/24/24 History hydrocodone 5 mg-acetaminophen 325 1 tab PO Q6H PRN pain #20 tabs 06/30/24 07/24/24 Rx mg tablet polyethylene glycol 3350 17 17 g PO DAILY PRN constipation 06/30/24 07/24/24 Rx gram/dose oral powder (Miralax) #510 grams prednisone 10 mg tablet See Rx Instructions .Route 07/02/24 07/24/24 Rx .COMPLEX #18 tabs oxycodone-acetaminophen 5 mg-325 1 tab PO Q6H PRN pain 5 days #20 07/24/24 Rx mg tablet (Percocet) tabs Allergies Allergy/AdvReac Type Severity Reaction Status Date / Time calcium (From DHEA) Allergy Severe respirator Verified 07/24/24 09:03 arrest calcium carbonate (From DHEA) Allergy Severe respirator Verified 07/24/24 09:03 arrest prasterone (DHEA) (From DHEA) Allergy Severe respirator Verified 07/24/24 09:03 arrest iodine Allergy Intermediate Unknown Verified 07/24/24 09:03 latex Allergy Intermediate Unknown Verified 07/24/24 09:03 meperidine (From Demerol) Allergy Intermediate Unknown Verified 07/24/24 09:03 sumatriptan (From Imitrex) Allergy Intermediate Unknown Verified 07/24/24 09:03 Exam Constitutional Documenting provider has reviewed patient's vital signs: yes Common normals: no apparent distress, oriented x3, healthy appearing, alert and well nourished General appearance: cooperative HENRI Common normals: normocephalic, hearing grossly normal bilaterally and moist oral mucous membranes Head and scalp: normocephalic Eye Common normals: PERRL Pupil: PERRL Neck & C-Spine Common normals: full ROM General: normal visual inspection Chest Common normals: inspection of chest normal Respiratory Common normals: normal respiratory effort, no retractions and no use of accessory muscles Back & Pelvis Lumbar spine/lower back: ROM limited, pain with ROM and straight leg raise positive right Sacroiliac joints: SI joint(s) abnormal Other: strength 3/5 in RLE and 5/5 in LLE decreased sensation right L3,4,5 right sij positive sherine(patricks), gaenslens, thigh thrust, compression test Neuro Common normals: oriented x3 Sensorium/orientation: alert Gait (neuro): antalgic and assistive device used walker Psych Common normals: mental status grossly normal, thought process normal, cooperative, affect normal, speech normal and activity/motor behavior normal Speech: normal speech Thought process: normal thought process Results Additional Findings Additional findings: If on a controlled substance or opioids, I have checked an [place] report on this patient and there are no aberrancies noted in the prescribing history.??If on a controlled substance or opioid a drug screen was completed and reviewed within the last year, and if there has not been a drug screen completed we ordered one today to monitor higher risk, state monitored pain medication use. As part of providing excellent, safe, comprehensive care, the following was completed at our patient's visit: 1. A medication reconciliation and review to ensure accurate knowledge of current/active medications, including asking our patients to inform us about any [id number] medications or herbal remedies/nutritional supplements/alternative remedies. 2. A review to specifically ensure our patients have had annual screening for screening for depression, screening for tobacco use, and screening for unhealthy alcohol use. For concerning screenings had a discussion with the patient, provided patient education, and recommended follow-up with primary care provider when appropriate. If patient noted with a risk of falling, they received education on strength, gait, and balance training to prevent future risk of falling. Portions of this note may have been carried over from the previous visit and updated as appropriate. Please note this office utilizes paper charting in addition to the electronic medical record. A list of current medications, vitals, and PMH is available there as the clinical staff outside of myself do not have access to [employer] charting during the clinic day operations. As part of providing quality comprehensive care the current medications, vitals, and PMH were reviewed in the paper chart. Assessment and Plan Assessment and Plan (1) Lumbar radiculopathy, right: (2) Failed back syndrome: (3) Sacroiliitis: Plan The patient has had over 3 months of moderate to severe low back and right leg pain with functional impairment and inadequate response to conservative care including NSAIDS (unless there are contraindication such as concurrent blood thinners), multiple oral or topical pain medications, and home exercise program/physical therapy.? Patient has completed >6 weeks of guided home exercise program and/or formal physical therapy program without relief of their symptoms.? I have reviewed the imaging of the lumbar spine and no red flags were identified.? The imaging reveals radiographic findings consistent with lumbar radiculopathy? The Oswestry Disability Index was completed, and the patient scored a 64%.? once approved by Dr Wilcox can proceed with right L3-4 L4-5 TFESI under fluoroscopy for lumbar radiculopathy consider right SIJ injection if persistent right SIJ pain increase pregabalin 100mg BID, risks vs benefits reviewed continue NNCP due to chronic benzo use continue to utilize wheeled walker f/u 2 weeks after injection
== END 2025-01-16 08:00 | disposition home or self-care (01) ==
LOC: PM 08:00
PROVIDERS: PCP Internal Medicine; Visit Provider Nurse Practitioner
DX: M54.16 Radiculopathy, lumbar region (principal); M96.1 Postlaminectomy syndrome, not elsewhere classified; M46.1 Sacroiliitis, not elsewhere classified
CPT/HCPCS: G0463

== ENCOUNTER 2025-01-28 09:46 | Day surgery (SDC) | payer OTHER, SELFPAY ==
--- OUTSIDE RECORDS SUMMARY | 2025-01-28 09:51 | XMS_ITS | CCD ---
Author Organization [facility] CliniSyvt Care Team Providers Care Offset Printing Pressmen Name Role Phone JENNA GARSIA Admitting Unavailable REECE GARSIAIC New Attending Unavailable LISANDRO MEEKS Consulting Unavailable REECE GARSIAIC New Referring Unavailable Robert Villasenor Unavailable HAMILTON, [...] , Miriam Stephenson Attending Unavailable Giedraitis , Miriam Stephenson Attending Unavailable Gimadonnaitis , Andrius Sachin Attending Unavailable Gibreezy HENLEY, Andrius Stephenson Attending Unavailable Gibreezy HENLEY, Andrius Stephenson Attending Unavailable Anderson HENLEY, Andrius Stephenson Attending Unavailable Anderson HENLEY, Miriam Stephenson Attending Unavailable Raisa PRICE New Attending Unavailable Robert Villasenor DO Primary Care Provider SHIRA, OLUREMI A Admitting Unavailable SHIRA, OLUREMI A Attending Unavailable TERA TRAN Referring Unavailable ROBERT VILLASENOR Primary Care Unavailable ELOISE VELIZ Consulting Unavailable Robert Villasenor DO Primary Care Provider [phone] Hamilton STOCKTON Robert Attending Provider [phone] ROBERT VILLASENOR Primary Care Unavailable TOMÁS HELTON Referring Unavailable TOMÁS HELTON Attending Unavailable Robert Villasenor DO Primary Care Provider [phone] Hamilton STOCKTON, Robert Attending Provider Allergies Allergy Classification Reported Allergen(s) Allergy Type Date of Onset Reaction(s) Facility (3 sources) Contrast media; Translations: [CONTRAST DYE] Propensity to adverse reactions to drug (disorder) 09-30-19 11 [facility] (2 sources) HYDROmorphone; Translations: [HYDROMORPHONE (BULK)] Drug Allergy 08-17-19 17 [facility] (20 sources) Latex; Translations: [LATEX] Propensity to adverse reactions to drug (disorder) 09-30-19 11 Hives [facility] (2 sources) Meperidine; Translations: [MEPERIDINE (PF)] Drug Allergy 09-30-19 11 [facility] (2 sources) Povidone-Iodine; Translations: [POVIDONE-IODINE] Drug Allergy 10-21-19 17 [facility] (2 sources) SUMAtriptan; Translations: [SUMATRIPTAN SUCCINATE] Drug Allergy 09-30-19 11 [facility] (2 sources) INFLUENZA VACCINE TRI-SP 09-10; Translations: [INFLUENZA VACCINE TRI-SP 09-10] Propensity to adverse reactions to drug (disorder) 09-30-19 11 [facility] (3 sources) DHE; Translations: [DHE] Propensity to adverse reactions to drug (disorder) 10-24-19 13 [facility] (20 sources) HYDROmorphone Drug Allergy 12-20-19 24 Unknown, Unknown Reaction [facility] (20 sources) Iodine; Translations: [iodine] Drug Allergy 10-24-19 13 Unknown, Unknown Reaction [facility] Repository (20 sources) Meperidine Drug Allergy 12-20-19 24 Unknown, Unknown Reaction [facility] (20 sources) SUMAtriptan Drug Allergy 12-20-19 24 Hives [facility] (20 sources) Fluad Drug allergy 12-20-19 24 Unknown, Unknown Reaction [facility] (19 sources) DHEA Drug allergy 07-07-19 25 Anaphylaxis [facility] [employer] Other (2 sources) HYDROmorphone; Translations: [Dilaudid] Drug Allergy 10-24-19 13 [facility] Repository (1 source) Meperidine Drug Allergy 10-24-19 13 [facility] Repository (2 sources) Plasmin; Translations: [Imitrex] Drug Allergy 10-24-19 13 [facility] Repository (12 sources) influenza A virus (H1N1) antigen / influenza A virus (H3N2) antigen / influenza B virus antigen Drug Allergy 11-21-19 14 Comment:FLU VACCINE [facility] [employer] Other (12 sources) Contraindication to Flu Injection Propensity to adverse reactions 03-07-20 14 Comment:advers e rxn/side effects [facility] [employer] Other (3 sources) patient allergy list reviewed by nurse or physicia Propensity to adverse reactions 12-22-19 14 Comment:Done [facility] [employer] Other (9 sources) Calcium Drug Allergy 12-20-19 24 Unknown Reaction [facility] (9 sources) Calcium Carbonate Drug Allergy 12-20-19 24 Unknown Reaction [facility] (9 sources) prasterone (DHEA) Allergy to substance 12-20-19 24 Unknown Reaction [facility] (9 sources) Fluad Quadrivalent Allergy to substance 04-29-19 Comment:FLU VACCINE [facility] Comment on above: Onset Date: 11/21/19 14 (1 source) Meperidine; Translations: [Demerol HCl] Drug Allergy [facility] Repository (1 source) flu vaccines; Translations: [flu vaccines] Propensity to adverse reactions (disorder) [facility] Repository (2 sources) Iodine Strong Propensity to adverse reactions to drug 07-07-19 Hives [facility] (2 sources) Meperidine Drug Allergy 07-07-19 Other (See Comments) [facility] Medications Current Medications Medication Drug Class(es) Dates [...] mg, Oral, D AILY, First dose on Tue07/07/24 at 1000, Until [...] hydrochloride 150 mg extended release oral tablet (4 sources) Aminoketone Start: 10-11-2024 End: 10-11-2024 take 1 tablet by mouth once daily in the morning Bupropion Hcl 150 mg tablet sustained-release 12 hr Active 150 MG PO Every morning October 11, 2024 11:42am Complies with drug therapy citalopram 40 mg oral tablet (20 sources) Serotonin Reuptake Inhibitor Start: 12-26-2024 take 1 tablet by mouth once daily Citalopram 40 mg tablet Active 0 .ROUTE .COMPLEX December 26, 2024 8:58pm TAKE 1 TABLET BY MOUTH EVERY DAY Complies with drug therapy Start: 07-07-2024 take 20 mg by mouth once daily 20 mg, Oral, DAILY, First dose on 07/07/24 at 0900, Until Discontinued Start: 10-22-2022 End: 12-26-2024 take 1 tablet by mouth once daily at bedtime Citalopram 40 mg tablet Discontinued 40 MG PO Daily at bedtime October 18, 2023 12:00am October 18, 2023 8:38am etodolac 500 mg oral tablet (20 sources) Nonsteroidal Anti-inflammatory Drug Start: 08-14-2024 take 1 tablet by mouth twice daily Etodolac 500 mg tablet Active 500 MG PO Twice daily 180 90 August 14, 2024 7:49pm Complies with drug therapy Start: 07-08-2024 End: 08-14-2024 take 1 tablet by mouth twice daily as needed for headache Etodolac 500 mg tablet Discontinued 0 .ROUTE .COMPLEX July 08, 2024 10:42am August 14, 2024 [...] for injection by adding 1 mL of core baker-supplied sterile diluent or sterile water for injection [...] Magnesium Aspart,Citrate,Ox ashutosh 400 mg magnesium capsule (7 sources) Start: 12-20-2023 take 1 capsule by mouth once daily Magnesium Aspart,Citrate,Oxid e 400 mg magnesium capsule Active 400 MG PO Daily December 20, 2023 12:00am Complies with drug therapy Start: 12-20-2023 take [address] [facility] once daily Magnesium Aspart,Citrate,Oxide 400 mg magnesium capsule Active 400 MG PO Daily December 20, 2023 12:00am Start: 12-20-2023 take [address] [facility] once daily Magnesium Aspart,Citrate,Oxide 400 mg magnesium [...] disintegrating tablet 4 mg polyethylene glycol 3350 [id number] mg powder for oral solution (1 source) [...] 40 mEq pregabalin 75 mg oral capsule (9 sources) Start: 11-28-2024 take 1 capsule by [...] Discontinued 50 MG PO Twice daily 6 July 25, 2024 12:00am August 14, 2024 7:54pm rizatriptan 10 mg oral tablet (16 sources) Serotonin-1b and Serotonin-1d Receptor Agonist Start: 12-20-2023 take 3 tablets by mouth every twenty-four hours as needed Rizatriptan (Maxalt) 10 mg tablet Active 10 MG PO EVERY 2-4 HOURS as needed December 20, 2023 12:00am do not exceed 3 doses per 24 hrs Complies with drug therapy Start: 11-04-2022 take 1 tablet by fredrick th every two hours as needed for headache Maxalt-PRE WAVE ASSEMBLER 10 MG 1 tablet Orally PRN headache, [...] day prn headache for 90 days Active traMADol hydrochloride 50 mg oral tablet (9 sources) Opioid Agonist Start: 09-13-2024 End: 12-19-2024 take 1 tablet by mouth every eight hours as needed for pain Tramadol 50 mg tablet Active 50 MG PO Every 8 hours as needed for pain 90 December 19, 2024 6:05pm Complies with drug therapy Completed/Discontinued Medications Medication Drug Class(es) Dates Sig (Normalized) Sig (Original) acetaminophen 325 mg / HYDROcodone bitartrate 5 mg oral tablet (13 sources) Opioid Agonist Start: 07-06-2024 HYDROcodone-acetam inophen (NORCO) 5-325 MG per tablet 1 tablet Start: 07-04-2024 End: 08-14-2024 take 1 tablet by mouth every four to six hours as needed for pain Hydrocodone-Acetaminophen 5-325 mg table t Discontinued 1 TAB PO EVERY 4-6 HOURS as needed for pain 28 7 July 18, 2024 August 14, 2024 7:50pm [...] hypoproteinemia amitriptyline hydrochloride 10 mg oral tablet (16 sources) Tricyclic Antidepressant Start: 12-20-2023 End: 12-20-2023 [...] mL Sterile Water. Withdraw entire contents., Post-op clonazePAM 1 mg oral tablet (20 sources) Benzodiazepine Start: 07-06-2024 take 1 mg by mouth once daily 1 mg, Oral, NIGHTLY, First dose on Tue07/06/24 at 2200, Until Discontinued Start: 12-20-2023 End: 08-14-2024 take 1.5 mg by mouth once daily at bedtime Clonazepam (Klonopin) 1 mg tablet Discontinued 1.5 MG PO Daily at bedtime 45 August 08, 2024 5:30pm August 14, 2024 7:54pm Start: 06-13-2023 End: 12-20-2023 take 3 tablets [...] days Sep, Active take 1 tablet by fredrick th once daily as needed clonazePAM (KLONOPIN) 1 MG tablet Take 1 tablet by mouth nightly as needed (Restless leg). Active cloNIDine hydrochloride 0.1 mg oral tablet [...] Opioid Reversal naratriptan 2.5 mg oral tablet (16 sources) Serotonin-1b and Serotonin-1d Receptor Agonist Start: [...] 20 mg tablet Discontinued 0 .ROUTE .COMPLEX March 28, 2024 8:01am August 14, 2024 [...] 20 MG PO Daily at bedtime 90 August 14, 2024 7:52pm Complies with drug therapy predniSONE 20 mg oral tablet (8 sources) Start: 07-25-2024 End: 08-14-2024 take 1 tablet by mouth three times daily Prednisone 20 mg tablet Discontinued 20 MG PO As Directed 9 July 25, 2024 12:00am August 14, 2024 [...] 20 mL/lumen, Post-op [place] 10460 mg powder for oral suspension (1 source) [...] EVERY DAY AT BEDTIME for 90 Active Problems Active Problems Problem Classification Problem Date Documented Date Episodic/Chronic Acute posthemorrhagic anemia (9 sources) Acute posthemorrhagic anemia; Translations: [Acute posthemorrhagic [...] 3 Chronic Joint disorders and dislocations; trauma-related (3 sources) Other tear of medial meniscus, current injury, right knee, initial encounter; Translations: [Acute tear of meniscus of right knee] Onset: 3 11-28-2024 Episodic Mood disorders (20 sources) Recurrent major depression in full remission; Translations: [Major depressive disorder, recurrent, in full remission] 10-11-2024 Chronic Mycoses (1 source) Candidiasis of skin and nail Episodic Nonmalignant breast conditions (20 sources) Lump in left breast; Translations: [Unspecified lump in the left breast, unspecified quadrant] 02-24-2024 Episodic Osteoarthritis (13 sources) Primary osteoarthritis, left shoulder; Translations: [Primary osteoarthritis, right shoulder] Onset: 9 07-04-2024 Chronic Other connective tissue disease (7 sources) History of cervical spine fusion; Translations: [Arthrodesis status] 02-24-2024 Episodic Other connective tissue disease (4 sources) Arthrodesis status; Translations: [Arthrodesis status] 06-25-2024 Episodic Other connective tissue disease (2 sources) Pain in lower limb; Translations: [Pain in leg, unspecified] 11-28-2024 Episodic Other nervous system disorders (2 sources) Meralgia paresthetica; Translations: [Meralgia paresthetica, unspecified lower limb] 11-28-2024 Chronic Other nervous system disorders (1 source) Dysarthria and anarthria Episodic Other non-traumatic joint disorders (1 source) Pain in right shoulder Episodic Other non-traumatic joint disorders (1 source) Pain in left shoulder Episodic Other non-traumatic joint disorders (2 sources) Swelling of knee joint; Translations: [Effusion, right knee] 09-12-2024 Episodic Other non-traumatic joint disorders (3 sources) Pain in right knee; Translations: [Right [...] conditions (not mental disorders or infectious disease) (7 sources) Encounter for screening mammogram for malignant neoplasm of breast; Translations: [Prerenal azotemia] Onset: 2 Episodic Other skin disorders (3 sources) Localized swelling, mass and lump, left [...] [Other spondylosis with radiculopathy, lumbosacral region] Chronic Comment on above: MRI: 01/07/25L3-4 mod left, severe right foraminal stenosis, Spondylosis; intervertebral disc disorders; other back problems [...] Basophils (Bld) [#/Vol] 0.0 10 3/uL 0.0-0.1 [facility] Basophils/100 WBC Auto (Bld) Ordered By: Robert Villasenor on 10-13-2024 Basophils/100 WBC (Bld) 0.6 % 0.2-2.0 [facility] Cholesterol in LDL Calc [Mas s/Vol]Ordered By: Robert Villasenor on 10-13-2024 Cholesterol in LDL [Mass/Vol] 77.0 mg/dL [facility] Comment on above: <100 mg/dl [id number] 0-129 mg/dl NEAR OR ABOVE [id number] mg/dl BORDERLINE [id number] mg/dl HIGH>190 mg/dl VERY HIGH Cholesterol in VLDL Calc [Ma ss/Vol]Ordered By: Robert Villasenor on 10-13-2024 Cholesterol in VLDL [Mass/Vol] 30.8 mg/dL [facility] Eosinophils/100 WBC Auto (Bl d)Ordered By: Robert Villasenor on 10-13-2024 Eosinophils/100 WBC (Bld) 4.5 % 0.9-7.0 [facility] Erythrocyte distribution wid th Auto (RBC) [Ratio]Ordered By: Robert Villasenor on 10-13-2024 Erythrocyte distribution width (RBC) [Ratio] 12.6 % 11.0-15.0 [facility] Estimated glomerular filtrat ion rate (GFR) non- AmericanOrdered By: Robert Villasenor on 10-13-2024 GFR/1.73 sq M.predicted among non-blacks MDRD (S/P/Bld) [Vol rate/Area] 50 mL/min/{1.73_m2} Low >=60 mL/min/1.73 m 2 [facility] Globulin Calc (S) [Mass/Vol] Ordered By: Robert Villasenor on 10-13-2024 Globulin (S) [Mass/Vol] 3.6 g/dL [facility] Hematocrit Auto (Bld) [Volum e fraction]Ordered By: Robert Villasenor on 10-13-2024 Hematocrit (Bld) [Volume fraction] 37.7 % 36.0-48.0 [facility] Hemoglobin [Mass/volume] in BloodOrdered By: Robert Villasenor on 10-13-2024 Hemoglobin (Bld) [Mass/Vol] 12.0 g/dL 12.0-16.0 [facility] Laboratory - Chemistry and C hemistry - challengeOrdered By: Robert Villasenor on 10-13-2024 Albumin [Mass/Vol] 3.6 g/dL 3.4-5.0 [facility] ALP [Catalytic activity/Vol] 91 U/L 46-116 [facility] ALT [Catalytic activity/Vol] 29 U/L 14-59 [facility] AST [Catalytic activity/Vol] 23 U/L 15-37 [facility] Bilirubin [Mass/Vol] 0.6 mg/dL 0.2-1.0 [facility] Calcium [Mass/Vol] 8.9 mg/dL 8.5-10.1 [facility] Chloride [Moles/Vol] 103 mmol/L 98-107 [facility] Cholesterol [Mass/Vol] 161 mg/dL <=200 [facility] Cholesterol in HDL [Mass/Vol] 54 mg/dL 40-60 [facility] Comment on above: > or =60 mg/dl - LOW CARDIOVASCULAR RISK<40 mg/dl - HIGH CARDIOVASCULAR RISK CO2 [Moles/Vol] 26.8 mmol/L 21.0-32.[address] [facility] Creatinine [Mass/Vol] 1.09 mg/dL High 0.55-1.02 [facility] GFR/1.73 sq M.predicted MDRD (S/P/Bld) [Vol rate/Area] mL/min/{1.73_m2} >=60 mL/min/1.73 m 2 [facility] Glucose [Mass/Vol] 75 mg/dL 74-106 [facility] Potassium [Moles/Vol] 4.3 mmol/L 3.5-5.1 [facility] Protein [Mass/Vol] 7.2 g/dL 6.4-8.2 [facility] Sodium [Moles/Vol] 141 mmol/L 136-145 [facility] Triglyceride [Mass/Vol] 154 mg/dL High <=150 [facility] Urea nitrogen [Mass/Vol] 28.0 mg/dL High 7.0-18.0 [facility] Urea nitrogen/Creatinine [Mass ratio] 25.7 mg/mg [facility] Laboratory - Hematology and Cell countsOrdered By: Robert Villasenor on 10-13-2024 Immature granulocytes/100 WBC (Bld) 0.3 % 0.0-0.5 [facility] Leukocytes [#/volume] correc chip for nucleated erythrocytes in Blood by Automated counOrdered By: Robert Villasenor on 10-13-2024 WBC corrected for nucl RBC Auto (Bld) [#/Vol] 6.4 10 3/uL 4.0-11.0 [facility] Lymphocytes Auto (Bld) [#/Vo l]Ordered By: Robert Villasenor on 10-13-2024 Lymphocytes (Bld) [#/Vol] 2.7 10 3/uL 1.2-3.8 [facility] Lymphocytes/100 WBC Auto (Bl d)Ordered By: Robert Villasenor on 10-13-2024 Lymphocytes/100 WBC (Bld) 42.6 % 20.5-60.0 [facility] MCH Auto (RBC) [Entitic mass ]Ordered By: Robert Villasenor on 10-13-2024 MCH (RBC) [Entitic mass] 26.1 pg Low 26.7-34.0 [facility] MCHC Auto (RBC) [Mass/Vol]Or dered By: Robert Villasenor on 10-13-2024 MCHC (RBC) [Mass/Vol] 31.8 g/dL 29.9-35.2 [facility] MCV Auto (RBC) [Entitic vol] Ordered By: Robert Villasenor on 10-13-2024 MCV (RBC) [Entitic vol] 82.0 fL 81.0-99.0 [facility] Microalbumin [Mass/volume] i n UrineOrdered By: Robert Villasenor on 10-13-2024 Albumin DL <= 20 mg/L (U) [Mass/Vol] mg/dL <=30.0 [facility] Monocytes Auto (Bld) [#/Vol] Ordered By: Robert Villasenor on 10-13-2024 Monocytes (Bld) [#/Vol] 0.5 10 3/uL 0.3-0.8 [facility] Monocytes/100 WBC Auto (Bld) Ordered By: Robert Villasenor on 10-13-2024 Monocytes/100 WBC (Bld) 8.5 % 1.7-12.0 [facility] Neutrophils Auto (Bld) [#/Vo l]Ordered By: Robert Villasenor on 10-13-2024 Neutrophils (Bld) [#/Vol] 2.8 10 3/uL 1.4-6.5 [facility] Neutrophils/100 WBC Auto (Bl d)Ordered By: Robert Villasenor on 10-13-2024 Neutrophils/100 WBC (Bld) 43.5 % 43.0-75.0 [facility] No Panel InformationOrdered By: Robert Villasenor on 10-13-2024 Eosinophils # (Auto) 0.3 10 3/uL 0.0-0.7 [facility] Immature Granulocyte # (Auto) 0.02 10 3/uL 0.00-0.03 [facility] Urine Random Creatinine 72.31 mg/dL 20.00-300.0 0 [facility] Platelet mean volume Auto (B ld) [Entitic vol]Ordered By: Robert Villasenor on 10-13-2024 Platelet mean volume (Bld) [Entitic vol] 9.8 fL 9.5-13.5 [facility] Platelets Auto (Bld) [#/Vol] Ordered By: Robert Villasenor on 10-13-2024 Platelets (Bld) [#/Vol] 227 10 3/uL 150-450 [facility] RBC Auto (Bld) [#/Vol]Ordere d By: Robert Villasenor on 10-13-2024 RBC (Bld) [#/Vol] 4.60 10 6/uL 4.20-5.40 [facility] Serum or plasma albumin/glob ulin mass ratioOrdered By: Robert Villasenor on 10-13-2024 Albumin/Globulin [Mass ratio] 1.0 {ratio} [facility] Serum or plasma anion gap de terminationOrdered By: Robert Villasenor on 10-13-2024 Anion gap [Moles/Vol] 15.5 mmol/L [facility] Serum or plasma total choles terol/high density lipoprotein (HDL) cholesterol mass ratOrdered By: Robert Villasenro on 10-13-2024 Cholesterol.total/Chol esterol in HDL [Mass ratio] 3.0 {ratio} [facility] Comment on above: 3.3 - 4.4 LOW RISK4. 4 - 7.1 AVERAGE RISK7.1 - 11.0 MODERATE RISK>11.0 HIGH RISK Basophils Auto (Bld) [#/Vol] on 09-21-2024 Basophils (Bld) [#/Vol] 0.0 10 3/uL 0.0-0.1 [facility] Basophils/100 WBC Auto (Bld) on 09-21-2024 Basophils/100 WBC (Bld) 0.6 % 0.2-2.0 [facility] Cholesterol in LDL Calc [Mas s/Vol]on 09-21-2024 Cholesterol in LDL [Mass/Vol] 57.0 mg/dL [facility] Comment on above: <100 mg/dl [id number] 0-129 mg/dl NEAR OR ABOVE [id number] mg/dl BORDERLINE VOCL197-042 mg/dl HIGH>190 mg/dl VERY HIGH Cholesterol in VLDL Calc [Ma ss/Vol]on 09-21-2024 Cholesterol in VLDL [Mass/Vol] 37.6 mg/dL [facility] Eosinophils/100 WBC Auto (Bl d)on 09-21-2024 Eosinophils/100 WBC (Bld) 14.7 % High 0.9-7.0 [facility] Erythrocyte distribution wid th Auto (RBC) [Ratio]on 09-21-2024 Erythrocyte distribution width (RBC) [Ratio] 11.9 % 11.0-15.0 [facility] Estimated glomerular filtrat ion rate (GFR) non- Americanon 09-21-2024 GFR/1.73 sq M.predicted among non-blacks MDRD (S/P/Bld) [Vol rate/Area] 54 mL/min/{1.73_m2} Low >=60 mL/min/1.73 m 2 [facility] Globulin Calc (S) [Mass/Vol] on 09-21-2024 Globulin (S) [Mass/Vol] 3.7 g/dL [facility] Hematocrit Auto (Bld) [Volum e fraction]on 09-21-2024 Hematocrit (Bld) [Volume fraction] 35.4 % Low 36.0-48.0 [facility] Hemoglobin [Mass/volume] in Bloodon 09-21-2024 Hemoglobin (Bld) [Mass/Vol] 11.0 g/dL Low 12.0-16.0 [facility] Laboratory - Chemistry and C hemistry - challengeon 09-21-2024 Albumin [Mass/Vol] 3.2 g/dL Low 3.4-5.0 [facility] ALP [Catalytic activity/Vol] 89 U/L 46-116 [facility] ALT [Catalytic activity/Vol] 29 U/L 14-59 [facility] AST [Catalytic activity/Vol] 22 U/L 15-37 [facility] Bilirubin [Mass/Vol] 0.4 mg/dL 0.2-1.0 [facility] Calcium [Mass/Vol] 9.2 mg/dL 8.5-10.1 [facility] Chloride [Moles/Vol] 105 mmol/L 98-107 [facility] Cholesterol [Mass/Vol] 136 mg/dL <=200 [facility] Cholesterol in HDL [Mass/Vol] 42 mg/dL 40-60 [facility] Comment on above: > or =60 mg/dl - LOW CARDIOVASCULAR RISK<40 mg/dl - HIGH CARDIOVASCULAR RISK CO2 [Moles/Vol] 28.3 mmol/L 21.0-32.[address] [facility] Creatinine [Mass/Vol] 1.02 mg/dL 0.55-1.02 [facility] GFR/1.73 sq M.predicted MDRD (S/P/Bld) [Vol rate/Area] mL/min/{1.73_m2} >=60 mL/min/1.73 m 2 [facility] Glucose [Mass/Vol] 119 mg/dL High 74-106 [facility] Potassium [Moles/Vol] 5.3 mmol/L High 3.5-5.1 [facility] Protein [Mass/Vol] 6.9 g/dL 6.4-8.2 [facility] Sodium [Moles/Vol] 143 mmol/L 136-145 [facility] Triglyceride [Mass/Vol] 188 mg/dL High <=150 [facility] TSH Qn 0.633 m[IU]/L 0.358-3.740 [facility] Urea nitrogen [Mass/Vol] 31.0 mg/dL High 7.0-18.0 [facility] Urea nitrogen/Creatinine [Mass ratio] 30.4 mg/mg [facility] Laboratory - Hematology and Cell countson 09-21-2024 Immature granulocytes/100 WBC (Bld) 0.2 % 0.0-0.5 [facility] Leukocytes [#/volume] correc chip for nucleated erythrocytes in Blood by Automated counon 09-21-2024 WBC corrected for nucl RBC Auto (Bld) [#/Vol] 5.3 10 3/uL 4.0-11.0 [facility] Lymphocytes Auto (Bld) [#/Vo l]on 09-21-2024 Lymphocytes (Bld) [#/Vol] 2.1 10 3/uL 1.2-3.8 [facility] Lymphocytes/100 WBC Auto (Bl d)on 09-21-2024 Lymphocytes/100 WBC (Bld) 39.2 % 20.5-60.0 [facility] MCH Auto (RBC) [Entitic mass ]on 09-21-2024 MCH (RBC) [Entitic mass] 26.1 pg Low 26.7-34.0 [facility] MCHC Auto (RBC) [Mass/Vol]on 09-21-2024 MCHC (RBC) [Mass/Vol] 31.1 g/dL 29.9-35.2 [facility] MCV Auto (RBC) [Entitic vol] on 09-21-2024 MCV (RBC) [Entitic vol] 83.9 fL 81.0-99.0 [facility] Monocytes Auto (Bld) [#/Vol] on 09-21-2024 Monocytes (Bld) [#/Vol] 0.4 10 3/uL 0.3-0.8 [facility] Monocytes/100 WBC Auto (Bld) on 09-21-2024 Monocytes/100 WBC (Bld) 8.4 % 1.7-12.0 [facility] Neutrophils Auto (Bld) [#/Vo l]on 09-21-2024 Neutrophils (Bld) [#/Vol] 1.9 10 3/uL 1.4-6.5 [facility] Neutrophils/100 WBC Auto (Bl d)on 09-21-2024 Neutrophils/100 WBC (Bld) 36.9 % Low 43.0-75.0 [facility] No Panel Informationon 09-21 Eosinophils # (Auto) 0.8 10 3/uL High 0.0-0.7 [facility] Immature Granulocyte # (Auto) 0.01 10 3/uL 0.00-0.03 [facility] Platelet mean volume Auto (B ld) [Entitic vol]on 09-21-2024 Platelet mean volume (Bld) [Entitic vol] 9.9 fL 9.5-13.5 [facility] Platelets Auto (Bld) [#/Vol] on 09-21-2024 Platelets (Bld) [#/Vol] 218 10 3/uL 150-450 [facility] RBC Auto (Bld) [#/Vol]on RBC (Bld) [#/Vol] 4.22 10 6/uL 4.20-5.40 [facility] Serum or plasma albumin/glob ulin mass ratioon 09-21-2024 Albumin/Globulin [Mass ratio] 0.9 {ratio} [facility] Serum or plasma anion gap de terminationon 09-21-2024 Anion gap [Moles/Vol] 15.0 mmol/L [facility] Serum or plasma total choles terol/high density lipoprotein (HDL) cholesterol mass desiree 09-21-2024 Cholesterol.total/Chol esterol in HDL [Mass ratio] 3.2 {ratio} [facility] Comment on above: 3.3 - 4.4 LOW RISK4. 4 - 7.1 AVERAGE RISK7.1 - 11.0 MODERATE RISK>11.0 HIGH RISK Glucose mean value [Mass/vol ume] in Blood Estimated from glycated hemoglobinon 09-14-2024 Average glucose Estimated from glycated hemoglobin (Bld) [Mass/Vol] 146 mg/dL [facility] Hemoglobin A1c percentageon 09-14-2024 HbA1c (Bld) [Mass fraction] 6.7 % High 4.5-6.2 [facility] Comment on above: ADA RECOMMENDED LIMI T 4.0 - 6.0ADA THERAPEUTIC TARGET < 7.0ACTION SUGGESTED> 7.0 Microalbumin [Mass/volume] i n Urineon 09-14-2024 Albumin DL <= 20 mg/L (U) [Mass/Vol] 3.2 mg/dL <=30.0 [facility] No Panel Informationon 09-14 Urine Random Creatinine 260.08 mg/dL 20.00-300.0 0 [facility] Urine microalbumin/creatinin e mass ratioon 09-14-2024 Albumin/Creatinine DL <= 20 mg/L (U) [Mass ratio] 12.3 mg/g 0.0-29.9 [facility] Comment on above: NO MICROALBUMINURIA 0-29 MG/GCLINICAL MICROALBUMINURIA 30-300 MG/GMACROALBUMINURIA >300 MG/G Basophils Auto (Bld) [#/Vol] on 07-18-2024 Basophils (Bld) [#/Vol] Automated basophil count 0.0-0.1 [facility] Basophils/100 WBC Auto (Bld) on 07-18-2024 Basophils/100 WBC (Bld) Automated basophil % 0.2-2.0 [facility] Eosinophils/100 WBC Auto (Bl d)on 07-18-2024 Eosinophils/100 WBC (Bld) Automated eosinophil % 0.9-7.0 [facility] Erythrocyte distribution wid th Auto (RBC) [Ratio]on 07-18-2024 Erythrocyte distribution width (RBC) [Ratio] Erythrocyte distribution width [Ratio] by Automated count 11.0-15.0 [facility] Hematocrit Auto (Bld) [Volum e fraction]on 07-18-2024 Hematocrit (Bld) [Volume fraction] Hematocrit [Volume Fraction] of Blood by Automated count Low 36.0-48.0 [facility] Hemoglobin [Mass/volume] in Bloodon 07-18-2024 Hemoglobin (Bld) [Mass/Vol] Hemoglobin [Mass/volume] in Blood Low 12.0-16.0 [facility] Laboratory - Hematology and Cell countson 07-18-2024 Immature granulocytes/100 WBC (Bld) 0.6 % High 0.0-0.5 [facility] Leukocytes [#/volume] correc chip for nucleated erythrocytes in Blood by Automated counon 07-18-2024 WBC corrected for nucl RBC Auto (Bld) [#/Vol] Leukocytes [#/volume] corrected for nucleated erythrocytes in Blood by Automated coun 4.0-11.0 [facility] Lymphocytes Auto (Bld) [#/Vo l]on 07-18-2024 Lymphocytes (Bld) [#/Vol] Lymphocytes [#/volume] in Blood by Automated count 1.2-3.8 [facility] Lymphocytes/100 WBC Auto (Bl d)on 07-18-2024 Lymphocytes/100 WBC (Bld) Lymphocytes/100 leukocytes in Blood by Automated count 20.5-60.0 [facility] MCH Auto (RBC) [Entitic mass ]on 07-18-2024 MCH (RBC) [Entitic mass] MCH [Entitic mass] by Automated count 26.7-34.0 [facility] MCHC Auto (RBC) [Mass/Vol]on 07-18-2024 MCHC (RBC) [Mass/Vol] MCHC [Mass/volume] by Automated count 29.9-35.2 [facility] MCV Auto (RBC) [Entitic vol] on 07-18-2024 MCV (RBC) [Entitic vol] MCV [Entitic volume] by Automated count 81.0-99.0 [facility] Monocytes Auto (Bld) [#/Vol] on 07-18-2024 Monocytes (Bld) [#/Vol] Automated blood monocyte count 0.3-0.8 [facility] Monocytes/100 WBC Auto (Bld) on 07-18-2024 Monocytes/100 WBC (Bld) Automated monocyte % 1.7-12.0 [facility] Neutrophils Auto (Bld) [#/Vo l]on 07-18-2024 Neutrophils (Bld) [#/Vol] Neutrophils [#/volume] in Blood by Automated count 1.4-6.5 [facility] Neutrophils/100 WBC Auto (Bl d)on 07-18-2024 Neutrophils/100 WBC (Bld) Automated neutrophil % 43.0-75.0 [facility] No Panel Informationon 07-18 Eosinophils # (Auto) 0.3 10 3/uL 0.0-0.7 [facility] Immature Granulocyte # (Auto) 0.03 10 3/uL 0.00-0.03 [facility] Platelet mean volume Auto (B ld) [Entitic vol]on 07-18-2024 Platelet mean volume (Bld) [Entitic vol] Platelet mean volume [Entitic volume] in Blood by Automated count Low 9.5-13.5 [facility] Platelets Auto (Bld) [#/Vol] on 07-18-2024 Platelets (Bld) [#/Vol] Platelets [#/volume] in Blood by Automated count 150-450 [facility] RBC Auto (Bld) [#/Vol]on RBC (Bld) [#/Vol] Erythrocytes [#/volume] in Blood by Automated count Low 4.20-5.40 [facility] Basophils Auto (Bld) [#/Vol] on 07-12-2024 Basophils (Bld) [#/Vol] Automated basophil count 0.0-0.1 [facility] Basophils/100 WBC Auto (Bld) on 07-12-2024 Basophils/100 WBC (Bld) Automated basophil % 0.2-2.0 [facility] Eosinophils/100 WBC Auto (Bl d)on 07-12-2024 Eosinophils/100 WBC (Bld) Automated eosinophil % 0.9-7.0 [facility] Erythrocyte distribution wid th Auto (RBC) [Ratio]on 07-12-2024 Erythrocyte distribution width (RBC) [Ratio] Erythrocyte distribution width [Ratio] by Automated count 11.0-15.0 [facility] Estimated glomerular filtrat ion rate (GFR) non- Americanon 07-12-2024 GFR/1.73 sq M.predicted among non-blacks MDRD (S/P/Bld) [Vol rate/Area] Estimated glomerular filtration rate (GFR) non- Low >=60 mL/min/1.73 m 2 [facility] Hematocrit Auto (Bld) [Volum e fraction]on 07-12-2024 Hematocrit (Bld) [Volume fraction] Hematocrit [Volume Fraction] of Blood by Automated count Low 36.0-48.0 [facility] Hemoglobin [Mass/volume] in Bloodon 07-12-2024 Hemoglobin (Bld) [Mass/Vol] Hemoglobin [Mass/volume] in Blood Low 12.0-16.0 [facility] Laboratory - Chemistry and C hemistry - challengeon 07-12-2024 Calcium [Mass/Vol] 8.6 mg/dL 8.5-10.1 [facility] Chloride [Moles/Vol] 102 mmol/L 98-107 [facility] CO2 [Moles/Vol] 24.7 mmol/L 21.0-32.[address] [facility] Creatinine [Mass/Vol] 1.94 mg/dL High 0.55-1.02 [facility] GFR/1.73 sq M.predicted MDRD (S/P/Bld) [Vol rate/Area] 31 mL/min/{1.73_m2} Low >=60 mL/min/1.73 m 2 [facility] Glucose [Mass/Vol] 203 mg/dL High 74-106 [facility] Potassium [Moles/Vol] 4.6 mmol/L 3.5-5.1 [facility] Sodium [Moles/Vol] 137 mmol/L 136-145 [facility] Urea nitrogen [Mass/Vol] 24.0 mg/dL High 7.0-18.0 [facility] Urea nitrogen/Creatinine [Mass ratio] 12.4 mg/mg [facility] Laboratory - Hematology and Cell countson 07-12-2024 Immature granulocytes/100 WBC (Bld) 1.8 % High 0.0-0.5 [facility] Leukocytes [#/volume] correc chip for nucleated erythrocytes in Blood by Automated counon 07-12-2024 WBC corrected for nucl RBC Auto (Bld) [#/Vol] Leukocytes [#/volume] corrected for nucleated erythrocytes in Blood by Automated coun 4.0-11.0 [facility] Lymphocytes Auto (Bld) [#/Vo l]on 07-12-2024 Lymphocytes (Bld) [#/Vol] Lymphocytes [#/volume] in Blood by Automated count 1.2-3.8 [facility] Lymphocytes/100 WBC Auto (Bl d)on 07-12-2024 Lymphocytes/100 WBC (Bld) Lymphocytes/100 leukocytes in Blood by Automated count 20.5-60.0 [facility] MCH Auto (RBC) [Entitic mass ]on 07-12-2024 MCH (RBC) [Entitic mass] MCH [Entitic mass] by Automated count 26.7-34.0 [facility] MCHC Auto (RBC) [Mass/Vol]on 07-12-2024 MCHC (RBC) [Mass/Vol] MCHC [Mass/volume] by Automated count 29.9-35.2 [facility] MCV Auto (RBC) [Entitic vol] on 07-12-2024 MCV (RBC) [Entitic vol] MCV [Entitic volume] by Automated count 81.0-99.0 [facility] Monocytes Auto (Bld) [#/Vol] on 07-12-2024 Monocytes (Bld) [#/Vol] Automated blood monocyte count 0.3-0.8 [facility] Monocytes/100 WBC Auto (Bld) on 07-12-2024 Monocytes/100 WBC (Bld) Automated monocyte % 1.7-12.0 [facility] Neutrophils Auto (Bld) [#/Vo l]on 07-12-2024 Neutrophils (Bld) [#/Vol] Neutrophils [#/volume] in Blood by Automated count 1.4-6.5 [facility] Neutrophils/100 WBC Auto (Bl d)on 07-12-2024 Neutrophils/100 WBC (Bld) Automated neutrophil % 43.0-75.0 [facility] No Panel Informationon 07-12 Eosinophils # (Auto) 0.2 10 3/uL 0.0-0.7 [facility] Immature Granulocyte # (Auto) 0.13 10 3/uL High 0.00-0.03 [facility] Platelet mean volume Auto (B ld) [Entitic vol]on 07-12-2024 Platelet mean volume (Bld) [Entitic vol] Platelet mean volume [Entitic volume] in Blood by Automated count 9.5-13.5 [facility] Platelets Auto (Bld) [#/Vol] on 07-12-2024 Platelets (Bld) [#/Vol] Platelets [#/volume] in Blood by Automated count 150-450 [facility] RBC Auto (Bld) [#/Vol]on RBC (Bld) [#/Vol] Erythrocytes [#/volume] in Blood by Automated count Low 4.20-5.40 [facility] Serum or plasma anion gap de terminationon 07-12-2024 Anion gap [Moles/Vol] Serum or plasma an ion gap determination [facility] ANION GAPon 07-11-2024 Anion gap [Moles/Vol] 10.0 mmol/L Normal 8.0-16.0 [facility] Comment on above: Result Comment: ANIO N GAP = Sodium -(Chloride + CO2) Performed By: #### P OCGL #### [facility] [address] [place] [address] Anion Gapon 07-11-2024 Anion gap [Moles/Vol] 10 mmol/L 8.0 - 16.0 meq/L [facility] Comment on above: ANION GAP = Sodium - (Chloride + CO2) Performed at [facility] [address] [place] [address] BASIC METABOL PANELon 2024 Calcium [Mass/Vol] 8.9 mg/dL Normal 8.8-10.2 [facility] Comment on above: Performed By: #### P OCGL #### [facility] [address] [place] [address] CO2 [Moles/Vol] 22 mmol/L Normal 22-29 [facility] Comment on above: Performed By: #### P OCGL #### [facility] [address] [place] [address] Creatinine [Mass/Vol] 1.0 mg/dL High 0.5-0.9 [facility] Comment on above: Performed By: #### P OCGL #### [facility] [address] [place] [address] Glucose [Mass/Vol] 166 mg/dL High 74-109 [facility] Comment on above: Performed By: #### P OCGL #### [facility] [address] [place] [address] Urea nitrogen [Mass/Vol] 16 mg/dL Normal 8-23 [facility] Comment on above: Performed By: #### P OCGL #### [facility] [address] [place] [address] Chloride [Moles/Vol] 103 mmol/L Normal 98-111 [facility] Comment on above: Performed By: #### P OCGL #### [facility] [address] [address] Potassium [Moles/Vol] 4.7 mmol/L Normal 3.5-5.2 [facility] Comment on above: Result Comment: Low level specimen hemolysis is present as indicated by the interference index on the Yamilet analyzer. ??The reported K+ level may be falsely increased. If clinically warranted, recollection of the specimen is suggested. Performed By: #### P OCGL #### [facility] [address] [place] [address] Sodium [Moles/Vol] 135 mmol/L Normal 135-145 [facility] Comment on above: Performed By: #### P OCGL #### [facility] [address] [place] [address] Basic metabolic 2000 panelon 07-11-2024 Calcium [Mass/Vol] 8.9 mg/dL 8.8 - 10. 2 mg/dL [facility] Comment on above: Performed at [facility] [address] [place] [address] Chloride [Moles/Vol] 103 mmol/L 98 - 11 1 meq/L [facility] [employer] CO2 [Moles/Vol] 22 mmol/L 22 - 29 meq/L [facility] Creatinine [Mass/Vol] 1.0 mg/dL High 0.5 - 0.9 mg/dL [facility] Glucose [Mass/Vol] 166 mg/dL High 74 - 109 mg/dL [facility] Interpretation and review of laboratory results Abnormal [facility] Potassium [Moles/Vol] 4.7 mmol/L 3.5 - 5.2 meq/L [facility] Comment on above: Low level specimen h emolysis is present as indicated by the interference index on the Yamilet analyzer. The reported K+ level may be falsely increased. If clinically warranted, recollection of the specimen is suggested. Sodium [Moles/Vol] 135 mmol/L 135 - 145 meq/L [facility] Urea nitrogen [Mass/Vol] 16 mg/dL 8 - 23 mg/dL [email or web address] GFR, ESTIMATEDon 07-11-2024 GFR/1.73 sq M.predicted MDRD (S/P/Bld) [Vol rate/Area] 62 mL/min/{1.73_m2} Normal >60 [facility] Comment on above: Pediatric calculator link [...] that affects renal tubular secretion. Performed at [facility] [address] [place] [address] Result Comment: Soniya atric calculator link https://www.kidney.org/professionals/kdoqi/gfr_calculatorped [...] secretion. Performed By: #### P OCGL #### [facility] [employer] [address] [place] [address] GLUCOSE POCon 07-11-2024 Glucose [Mass/Vol] 177 mg/dL High 70-108 [facility] Comment on above: Performed at [facility] [address] [place] [address] Performed By: #### P OCGL #### [place] [id number] Glucose Auto test strip (Bld ) [Mass/Vol]on 07-11-2024 Interpretation and review of laboratory results Abnormal [facility] HGB,HCTon 07-11-2024 Hematocrit (Bld) [Volume fraction] 33.4 % Low 37.0-47.0 [facility] Comment on above: Performed at [facility] [address] [place] [address] Performed By: #### P OCGL #### [place] [address] Hemoglobin (Bld) [Mass/Vol] 10.8 g/dL Low 12.0-16.0 [facility] Comment on above: Performed By: #### P OCGL #### [place] [address] Hemoglobin and Hematocrit pa bhavna (Bld)on 07-11-2024 Interpretation and review of laboratory results Abnormal [facility] No Panel Informationon 07-11 [facility] ANION GAPon 07-10-2024 Anion gap [Moles/Vol] 8.0 mmol/L Normal 8.0-16.0 [facility] Comment on above: Result Comment: ANIO N GAP = Sodium -(Chloride + CO2) Performed By: #### P OCGL #### [place] [address] Anion Gapon 07-10-2024 Anion gap [Moles/Vol] 8 mmol/L 8.0 - 16.0 meq/L [facility] Comment on above: ANION GAP = Sodium - (Chloride + CO2) Performed at [facility] [address] [place] [address] BASIC METABOL PANELon 2024 Calcium [Mass/Vol] 8.8 mg/dL Normal 8.8-10.2 [facility] Comment on above: Performed By: #### P OCGL #### [facility] [employer] [facility] [address] [place] [address] CO2 [Moles/Vol] 26 mmol/L Normal 22-29 [facility] Comment on above: Performed By: #### P OCGL #### [facility] [address] [place] [address] Creatinine [Mass/Vol] 1.1 mg/dL High 0.5-0.9 [facility] Comment on above: Performed By: #### P OCGL #### [facility] [address] [place] [address] Glucose [Mass/Vol] 198 mg/dL High 74-109 [facility] Comment on above: Performed By: #### P OCGL #### [facility] [address] [place] [address] Urea nitrogen [Mass/Vol] 24 mg/dL High 8-23 [facility] Comment on above: Performed By: #### P OCGL #### [facility] [employer] [facility] [address] [place] [address] Chloride [Moles/Vol] 101 mmol/L Normal 98-111 [facility] Comment on above: Performed By: #### P OCGL #### [facility] [employer] [facility] [address] [place] [address] Potassium [Moles/Vol] 4.6 mmol/L Normal 3.5-5.2 [facility] Comment on above: Performed By: #### P OCGL #### [facility] [employer] [facility] [address] [place] [address] Sodium [Moles/Vol] 135 mmol/L Normal 135-145 [facility] Comment on above: Performed By: #### P OCGL #### [facility] [address] [place] [address] Basic metabolic 2000 panelon 07-10-2024 Calcium [Mass/Vol] 8.8 mg/dL 8.8 - 10. 2 mg/dL [facility] Comment on above: Performed at [facility] [address] [place] [address] Chloride [Moles/Vol] 101 mmol/L 98 - 11 1 meq/L [facility] CO2 [Moles/Vol] 26 mmol/L 22 - 29 meq/L [facility] Creatinine [Mass/Vol] 1.1 mg/dL High 0.5 - 0.9 mg/dL [facility] Glucose [Mass/Vol] 198 mg/dL High 74 - 109 mg/dL [facility] Potassium [Moles/Vol] 4.6 mmol/L 3.5 - 5.2 meq/L [facility] Sodium [Moles/Vol] 135 mmol/L 135 - 145 meq/L [facility] Urea nitrogen [Mass/Vol] 24 mg/dL High 8 - 23 mg/dL [facility] GFR, ESTIMATEDon 07-10-2024 GFR/1.73 sq M.predicted MDRD (S/P/Bld) [Vol rate/Area] 56 mL/min/{1.73_m2} Abnormal >60 [facility] Comment on above: Pediatric calculator link https://www.kidney.org/professionals/kdoqi/gfr_calculatorped [...] that affects renal tubular secretion. Performed at [facility] [address] [place] [address] Result Comment: Pedjesus atric calculator link https://www.kidney.org/professionals/kdoqi/gfr_calculatorped Effective Jan 25, [...] secretion. Performed By: #### P OCGL #### [address] [address] GLUCOSE POCon 07-10-2024 Glucose [Mass/Vol] 267 mg/dL High 70-108 [facility] Comment on above: Performed at [facility] [address] [place] [address] Performed By: #### P OCGL #### [place] [address] Glucose [Mass/Vol] 154 mg/dL High 70-108 [facility] Comment on above: Performed at [facility] [address] [place] [address] Performed By: #### P OCGL #### [place] [address] Glucose [Mass/Vol] 302 mg/dL High 70-108 [facility] Comment on above: Performed at [facility] [address] [place] [address] Performed By: #### P OCGL #### [address] [address] Glucose [Mass/Vol] 205 mg/dL High 70-108 [facility] Comment on above: [place] [address] Performed By: #### P OCGL #### [place] [address] Glucose Auto test strip (Bld ) [Mass/Vol]on 07-10-2024 Interpretation and review of laboratory results Abnormal [facility] Interpretation and review of laboratory results Abnormal [facility] Interpretation and review of laboratory results Abnormal [facility] Interpretation and review of laboratory results Abnormal [facility] HGB,HCTon 07-10-2024 Hematocrit (Bld) [Volume fraction] 32.2 % Low 37.0-47.0 [facility] Comment on above: Performed at [facility] [address] [place], [place] [id number] Performed By: #### P OCGL #### [facility] [address] [place] [address] Hemoglobin (Bld) [Mass/Vol] 10.0 g/dL Low 12.0-16.0 [facility] Comment on above: Performed By: #### P OCGL #### [facility] [address] [place] [address] Hemoglobin and Hematocrit pa bhavna (Bld)on 07-10-2024 Hemoglobin (Bld) [Mass/Vol] 10 g/dL Low [facility] Interpretation and review of laboratory results Abnormal [facility] No Panel Informationon 07-10 Interpretation and review of laboratory results Abnormal [facility] ANION GAPon 07-09-2024 Anion gap [Moles/Vol] 10.0 mmol/L Normal 8.0-16.0 [facility] Comment on above: Result Comment: ANIO N GAP = Sodium -(Chloride + CO2) Performed By: #### P OCGL #### [address] [address] Anion Gapon 07-09-2024 Anion gap [Moles/Vol] 10 mmol/L 8.0 - 16.0 meq/L [facility] Comment on above: ANION GAP = Sodium - (Chloride + CO2) Performed at [facility] [address] [place] [address] BASIC METABOL PANELon 2024 Calcium [Mass/Vol] 8.3 mg/dL Low 8.8-10.2 [facility] Comment on above: Performed By: #### P OCGL #### [facility] [address] [place] [address] CO2 [Moles/Vol] 23 mmol/L Normal 22-29 [facility] Comment on above: Performed By: #### P OCGL #### [facility] [address] [place] [address] [address] Creatinine [Mass/Vol] 1.1 mg/dL High 0.5-0.9 [facility] Comment on above: Performed By: #### P OCGL #### [facility] [address] [place] [address]641 Glucose [Mass/Vol] 197 mg/dL High 74-109 [facility] Comment on above: Performed By: #### P OCGL #### New On License [facility] [address] [place] [address] 64999 Urea nitrogen [Mass/Vol] 21 mg/dL Normal 8-23 [facility] Comment on above: Performed By: #### P OCGL #### [facility] [address] [place] [address] 59687 Chloride [Moles/Vol] 103 mmol/L Normal 98-111 [facility] Comment on above: Performed By: #### P OCGL #### [facility] [address] [place] [address] 97365 Potassium [Moles/Vol] 5.8 mmol/L High 3.5-5.2 [facility] Comment on above: Performed By: #### P OCGL #### [facility] [employer] [address] [place] [address] 82765 Sodium [Moles/Vol] 136 mmol/L Normal 135-145 [facility] Comment on above: Performed By: #### P OCGL #### [facility] [address] [address] Basic metabolic 2000 panelon 07-09-2024 Calcium [Mass/Vol] 8.3 mg/dL Low 8.8 - 10. 2 mg/dL [employer] [facility] Comment on above: Performed at [facility] [address] [place] [address] 22281 Chloride [Moles/Vol] 103 mmol/L 98 - 11 1 meq/L [facility] CO2 [Moles/Vol] 23 mmol/L 22 - 29 meq/L [facility] Creatinine [Mass/Vol] 1.1 mg/dL High 0.5 - 0.9 mg/dL [facility] Glucose [Mass/Vol] 197 mg/dL High 74 - 109 mg/dL [facility] Potassium [Moles/Vol] 5.8 mmol/L High 3.5 - 5.2 meq/L [facility] Sodium [Moles/Vol] 136 mmol/L 135 - 145 meq/L [facility] [employer] [employer] Urea nitrogen [Mass/Vol] 21 mg/dL 8 - 23 mg/dL [facility] [employer] GFR, ESTIMATEDon 07-09-2024 GFR/1.73 sq M.predicted MDRD (S/P/Bld) [Vol rate/Area] 56 mL/min/{1.73_m2} Abnormal >60 [facility] [employer] Comment on above: Pediatric calculator link https://www.kidney.org/professionals/kdoqi/gfr_calculatorped [...] that affects renal tubular secretion. Performed at [facility] [place] [address] Result Comment: Pedi atric calculator link https://www.kidney.org/professionals/kdoqi/gfr_calculatorped [...] secretion. Performed By: #### P OCGL #### [facility] [address] [place] [address] 49339 GLUCOSE POCon 07-09-2024 Glucose [Mass/Vol] 211 mg/dL High 70-108 [facility] Comment on above: Performed at [facility] [address] [place] [address] Performed By: #### P OCGL #### [facility] [address] [place] [address] 28749 Glucose [Mass/Vol] 212 mg/dL High 70-108 [facility] Comment on above: Performed at [facility] [address] [place] [address] Performed By: #### P OCGL #### [facility] [place] [address] Glucose [Mass/Vol] 169 mg/dL High 70-108 [facility] Comment on above: Performed at [facility] [address] [place] [address] Performed By: #### P OCGL #### [place] [address] Glucose [Mass/Vol] 229 mg/dL High 70-108 [facility] Comment on above: Performed at [facility] [address] [place] [address] Performed By: #### P OCGL #### [place] [address] Glucose [Mass/Vol] 203 mg/dL High 70-108 [facility] Comment on above: Performed at [facility] [address] [place] [address] Performed By: #### P OCGL #### [place] [address] HGB,HCTon 07-09-2024 Hematocrit (Bld) [Volume fraction] 36.7 % Low 37.0-47.0 [facility] Comment on above: Performed at [facility] [address] [place] [address] Performed By: #### P OCGL #### [place] [address] Hemoglobin (Bld) [Mass/Vol] 11.9 g/dL Low 12.0-16.0 [facility] Comment on above: Performed By: #### P OCGL #### [place] [address] No Panel Informationon 07-09 Interpretation and review of laboratory results Abnormal [facility] POTASSIUMon 07-09-2024 Potassium [Moles/Vol] 4.7 mmol/L Normal 3.5-5.2 [facility] Comment on above: Performed By: #### K P #### [place] [address] Potassiumon 07-09-2024 Potassium [Moles/Vol] 4.7 mmol/L 3.5 - 5.2 meq/L [facility] Comment on above: Performed at [facility] [facility] [address] [place] [address] 92666 GLUCOSE POCon 07-08-2024 Glucose [Mass/Vol] 266 mg/dL High 70-[address] [facility] Comment on above: Performed at [facility] [address] [place] [address] Performed By: #### P OCGL #### [facility] [address] [place] [address]703 Glucose [Mass/Vol] 120 mg/dL High 70-108 [facility] Comment on above: Performed at [facility] [address] [place] [address] Performed By: #### P OCGL #### [facility] [address] [place] [address] 47732 Glucose [Mass/Vol] 105 mg/dL Normal 70-108 [facility] Comment on above: Performed at [facility] [address] [place] [address] Performed By: #### P OCGL #### [facility] [address] [place] [address]15 Glucose [Mass/Vol] 136 mg/dL High 70-108 [facility] Comment on above: Performed at [facility] [facility] [address] [place] [address] Performed By: #### P OCGL #### [facility] [address] [address] Glucose Auto test strip (Bld ) [Mass/Vol]on 07-08-2024 Interpretation and review of laboratory results Abnormal [facility] Interpretation and review of laboratory results Abnormal [facility] Interpretation and review of laboratory results Abnormal [facility] [employer] [facility] XR LUMBAR SPINE 1 VWon 07-08 [...] Boo Headley MD 07/08/24 Final result Normal [facility] XR Lumbar spine Single viewo n 07-08-2024 1. Evidence of posterior fusion at L4-L5. Please refer to operative report for further details. This report has been created using voice recognition software. It may contain minor errors which are inherent in voice recognition technology. Electronically signed by Dr. Jerrod Betts [facility] Sivakumar Betts MD - 07/08/2024 [...] signed by Dr. Jerrod Betts [facility] Radiology Study observation (narrative) [facility] Intraoperative appearance of the lumbar spine. This report has been created using voice recognition software. It may contain minor errors which are inherent in voice recognition technology. Electronically signed by Dr. Boo Headley [facility] MOBILE LATERAL LUMBA R SPINE: CLINICAL INFORMATION: surgery. L3-L5 decompression. L4-L5- fusion COMPARISON: No prior study. TECHNIQUE: A single lateral mobile view of the lumbar spine was obtained For localization purposes. FINDINGS: 2 spinal needles are present posteriorly directed at the L4 and L5 levels. [facility] CONSOLID[facility] Boo Headley MD - 07/08/2024 [...] signed by Dr. Boo Headley [facility] Radiology Study observation (narrative) [facility] XR Lumbar spine Single viewO rdered By: Sivakumar Betts on 07-08-2024 [facility] Work Phone: XR Lumbar spine Single viewO rdered By: Boo Headley on 07-08-2024 [facility] Work Phone: ANION GAPon 07-07-2024 Anion gap [Moles/Vol] 14.0 mmol/L Normal 8.0-16.0 [facility] Comment on above: Result Comment: ANIO N GAP = Sodium -(Chloride + CO2) Performed By: #### B MP, EGFR1, CBCND, ANION #### [facility] [address] [place] [address] Anion Gapon 07-07-2024 Anion gap [Moles/Vol] 14 mmol/L 8.0 - 16.0 meq/L [facility] Comment on above: ANION GAP = Sodium - (Chloride + CO2) Performed at [facility] [address] [place] [address] BASIC METABOL PANELon 2024 CO2 [Moles/Vol] 21 mmol/L Low 22-29 [facility] Comment on above: Performed By: #### B MP, EGFR1, CBCND, ANION #### [facility] [address] [place] [address] Creatinine [Mass/Vol] 1.0 mg/dL High 0.5-0.9 [facility] Comment on above: Performed By: #### B MP, EGFR1, CBCND, ANION #### [facility] [address] [place] [address] Glucose [Mass/Vol] 172 mg/dL High 74-109 [facility] Comment on above: Performed By: #### B MP, EGFR1, CBCND, ANION #### [facility] [address] [place] [address] 19856 Urea nitrogen [Mass/Vol] 33 mg/dL High 8-23 [facility] Comment on above: Performed By: #### B MP, EGFR1, CBCND, ANION #### [address] [address] Calcium [Mass/Vol] 9.2 mg/dL Normal 8.8-10.2 [facility] Comment on above: Performed By: #### B MP, EGFR1, CBCND, ANION #### [address] [address] Chloride [Moles/Vol] 103 mmol/L Normal 98-111 [facility] Comment on above: Performed By: #### B MP, EGFR1, CBCND, ANION #### [address] [address] Potassium [Moles/Vol] 4.4 mmol/L Normal 3.5-5.2 [facility] Comment on above: Result Comment: Low level specimen hemolysis is present as indicated by the interference index on the Yamilet analyzer. ??The reported K+ level may be falsely increased. If clinically warranted, recollection of the specimen is suggested. Performed By: #### B MP, EGFR1, CBCND, ANION #### [address] [address] Sodium [Moles/Vol] 138 mmol/L Normal 135-145 [facility] Comment on above: Performed By: #### B MP, EGFR1, CBCND, ANION #### [address] [address] Basic metabolic 2000 panelon 07-07-2024 Calcium [Mass/Vol] 9.2 mg/dL 8.8 - 10. 2 mg/dL [facility] Comment on above: Performed at [facility] [address] [place] [address]129 Chloride [Moles/Vol] 103 mmol/L 98 - 11 1 meq/L [facility] CO2 [Moles/Vol] 21 mmol/L Low 22 - 29 meq/L [facility] Creatinine [Mass/Vol] 1.0 mg/dL High 0.5 - 0.9 mg/dL [facility] Glucose [Mass/Vol] 172 mg/dL High 74 - 109 mg/dL [facility] Interpretation and review of laboratory results Abnormal [facility] Potassium [Moles/Vol] 4.4 mmol/L 3.5 - 5.2 meq/L [facility] Comment on above: Low level specimen h emolysis is present as indicated by the interference index on the Yamilet analyzer. The reported K+ level may be falsely increased. If clinically warranted, recollection of the specimen is suggested. Sodium [Moles/Vol] 138 mmol/L 135 - 145 meq/L [facility] Urea nitrogen [Mass/Vol] 33 mg/dL High 8 - 23 mg/dL [facility] CBCon 07-07-2024 Erythrocyte distribution width (RBC) [Entitic vol] 40.3 fL 35.0 - 45.0 fL [facility] Platelets (Bld) [#/Vol] 236 10*3/uL [facility] RBC (Bld) [#/Vol] 4.73 10*6/uL [facility] WBC (Bld) [#/Vol] 8.6 10*3/uL [facility] Se cours Formerly Named [facility] CBC NO DIFFERENTIALon 2024 Erythrocyte distribution width (RBC) [Ratio] 12.6 % Normal 11.5-14.5 [facility] Comment on above: Performed By: #### B MP, EGFR1, CBCND, ANION #### [facility] [address] [place] [address] Hematocrit (Bld) [Volume fraction] 41.6 % Normal 37.0-47.0 [facility] Comment on above: Performed By: #### B MP, EGFR1, CBCND, ANION #### [facility] [address] [place] [address] Hemoglobin (Bld) [Mass/Vol] 13.5 g/dL Normal 12.0-16.0 [facility] Comment on above: Performed By: #### B MP, EGFR1, CBCND, ANION #### [facility] [address] [place] [address] MCH (RBC) [Entitic mass] 28.5 pg Normal 26.0-33.0 [facility] Comment on above: Performed By: #### B MP, EGFR1, CBCND, ANION #### [place] [address] MCHC (RBC) [Mass/Vol] 32.5 g/dL Normal 32.2-35.5 [facility] Comment on above: Performed By: #### B MP, EGFR1, CBCND, ANION #### [place] [address] MCV (RBC) [Entitic vol] 87.9 fL Normal 81.0-99.0 [facility] Comment on above: Performed By: #### B MP, EGFR1, CBCND, ANION #### [place] [address] PLATELET 236 thou/mm3 Normal 130-400 [facility] Comment on above: Performed By: #### B MP, EGFR1, CBCND, ANION #### [place] [address] Platelet mean volume (Bld) [Entitic vol] 9.6 fL Normal 9.4-12.4 [facility] Comment on above: Performed at [facility] [place] [address] Performed By: #### B MP, EGFR1, CBCND, ANION #### [place] [address] RBC 4.73 mill/mm3 Normal 4.20-5.40 [facility] Comment on above: Performed By: #### B MP, EGFR1, CBCND, ANION #### [place] [address] RDW-SD 40.3 fL Normal 35.0-45.0 [facility] Comment on above: Performed By: #### B MP, EGFR1, CBCND, ANION #### [place] [address] WBC 8.6 thou/mm3 Normal 4.8-10.8 [facility] Comment on above: Performed By: #### B MP, EGFR1, CBCND, ANION #### [facility] [employer] [address] [place] [address] GFR, ESTIMATEDon 07-07-2024 GFR/1.73 sq M.predicted MDRD (S/P/Bld) [Vol rate/Area] 62 mL/min/{1.73_m2} Normal >60 [facility] Comment on above: Pediatric calculator link [...] that affects renal tubular secretion. Performed at [facility] [place] [address] Result Comment: Pedi atric calculator link https://www.kidney.org/professionals/kdoqi/gfr_calculatorped [...] #### B MP, EGFR1, CBCND, ANION #### [facility] [address] [place] [address]80 GLUCOSE POCon 07-07-2024 Glucose [Mass/Vol] 271 mg/dL High 70-[address] [facility] Comment on above: Performed at [facility] [address] [place] [address] Performed By: #### P OCGL #### [facility] [address] [place] [address] 19198 Glucose [Mass/Vol] 188 mg/dL High 70-[address] [facility] Comment on above: Performed at [employer] [facility] [address] [place] [address] Performed By: #### P OCGL #### [facility] [address] [place] [address] Glucose [Mass/Vol] 174 mg/dL High 70-108 [facility] [employer] [facility] Comment on above: Performed at [facility] [address] [place] [address] Performed By: #### P OCGL #### [facility] [address] [place] [address] Glucose [Mass/Vol] 76 mg/dL Normal 70-108 [facility] Comment on above: Performed at [facility] [employer] [facility] [address] [place] [address] Performed By: #### P OCGL #### [facility] [address] [place] [address] Glomerular Filtration Rate, Estimatedon 07-07-2024 EXENDIS Glucose Auto test strip (Bld ) [Mass/Vol]on 07-07-2024 Interpretation and review of laboratory results Abnormal [facility] Interpretation and review of laboratory results Abnormal [employer] [facility] Interpretation and review of laboratory results Abnormal [employer] [facility] No Panel Informationon 07-07 EXENDIS XR CHEST (2 VW)on 07-07-2024 XR CHEST [...] Kj Epps MD 07/07/24 Final result Normal [facility] XR Chest 2 Viewson Impression: No acute [...] hardware projects on the lower cervical spine. [facility] Kj Epps MD - 07/07/2024 Chest X-ray: [...] MD on 07/07/2024 02:22 AM [facility] Radiology Study observation (narrative) [facility] XR Chest 2 ViewsOrdered By: Kj Epps on 07-07-2024 [facility] ANION GAPon 07-06-2024 Anion gap [Moles/Vol] 14.0 mmol/L Normal 8.0-16.0 [facility] Comment on above: Result Comment: ANIO N GAP = Sodium -(Chloride + CO2) Performed By: #### P OCGL #### [facility] [address] [place] [address] APTTon 07-06-2024 aPTT Coag (Bld) [Time] 29.5 s Normal 22.0-38.0 [facility] Comment on above: Result Comment: Ther apeutic Heparin Reference Range= 60-95 seconds (corresponds to 0.3 to 0.7 u/mL Anti-Xa factor activity) Performed By: #### P OCGL #### [facility] [address] [place] [address] Anion Gapon 07-06-2024 Anion gap [Moles/Vol] 14 mmol/L 8.0 - 16.0 meq/L [facility] Comment on above: ANION GAP = Sodium - (Chloride + CO2) Performed at [facility] [address] [place] [address] CBC WITH DIFFERENTIALon 06-23 ABS BASOPHILS 0.0 thou/mm3 Normal 0.0-0.1 [facility] Comment on above: Performed By: #### P OCGL #### [facility] [address] [place] [address] ABS EOSINOPHILS 0.0 thou/mm3 Normal 0.0-0.4 [facility] Comment on above: Performed By: #### P OCGL #### [facility] [address] [place] [address] ABS IMMATURE GRANS (IG) 0.05 thou/mm3 Normal 0.00-0.07 [facility] Comment on above: Performed By: #### P OCGL #### [facility] [address] [place] [address] ABS LYMPHOCYTES 2.8 thou/mm3 Normal 1.0-4.8 [facility] Comment on above: Performed By: #### P OCGL #### [address] [address] ABS MONOCYTES 0.8 thou/mm3 Normal 0.4-1.3 [facility] Comment on above: Performed By: #### P OCGL #### [address] [address] ABS NEUTROPHILS 7.9 thou/mm3 High 1.8-7.7 [facility] Comment on above: Performed By: #### P OCGL #### [address] [address] Basophils/100 WBC (Bld) 0.2 % Normal [facility] Comment on above: Performed By: #### P OCGL #### [facility] [address] [place] [address] Eosinophils/100 WBC (Bld) 0.3 % Normal [facility] Comment on above: Performed By: #### P OCGL #### [facility] [address] [place] [address] Erythrocyte distribution width (RBC) [Ratio] 12.5 % Normal 11.5-14.5 [facility] Comment on above: Performed By: #### P OCGL #### [address] [address] Hematocrit (Bld) [Volume fraction] 42.6 % Normal 37.0-47.0 [facility] Comment on above: Performed By: #### P OCGL #### [address] [address] Hemoglobin (Bld) [Mass/Vol] 13.8 g/dL Normal 12.0-16.0 [facility] Comment on above: Performed By: #### P OCGL #### [address] [address] IMMATURE GRANS (IG) 0.4 % Normal [facility] Comment on above: Performed By: #### P OCGL #### [address] [address] Lymphocytes/100 WBC (Bld) 24.0 % Normal [facility] Comment on above: Performed By: #### P OCGL #### [address] [address] MCH (RBC) [Entitic mass] 28.6 pg Normal 26.0-33.0 [facility] Comment on above: Performed By: #### P OCGL #### [address] [address] MCHC (RBC) [Mass/Vol] 32.4 g/dL Normal 32.2-35.5 [facility] Comment on above: Performed By: #### P OCGL #### [address] [address] MCV (RBC) [Entitic vol] 88.2 fL Normal 81.0-99.0 [facility] Comment on above: Performed By: #### P OCGL #### [address] [address] Monocytes/100 WBC (Bld) 6.8 % Normal [facility] Comment on above: Performed By: #### P OCGL #### [address] [address] Neutrophils/100 WBC (Bld) 68.3 % Normal [facility] Comment on above: Performed By: #### P OCGL #### [address] [address] NRBC 0 /100 wbc Normal [facility] Comment on above: Performed By: #### P OCGL #### [facility] [address] [place] [address] PLATELET 274 thou/mm3 Normal 130-400 [facility] Comment on above: Performed By: #### P OCGL #### [facility] [address] [place] [address] Platelet mean volume (Bld) [Entitic vol] 9.7 fL Normal 9.4-12.4 [facility] Comment on above: Performed By: #### P OCGL #### [facility] [address] [place] [address] RBC 4.83 mill/mm3 Normal 4.20-5.40 [facility] Comment on above: Performed By: #### P OCGL #### [facility] [address] [place] [address] RDW-SD 39.9 fL Normal 35.0-45.0 [facility] Comment on above: Performed By: #### P OCGL #### [facility] [address] [place] [address] WBC 11.6 thou/mm3 High 4.8-10.8 [facility] Comment on above: Performed By: #### P OCGL #### [facility] [address] [place] [address] CBC with Auto Differentialon 07-06-2024 Basophils (Bld) [...] [facility] Comment on above: Performed at [facility] [address] [place] [address] Platelets (Bld) [#/Vol] 274 10*3/uL [facility] RBC (Bld) [#/Vol] 4.83 10*6/uL [facility] WBC (Bld) [#/Vol] 11.6 10*3/uL [facility] COMP. METABOLIC PANELon 06-23 Albumin [Mass/Vol] 4.3 g/dL Normal 3.4-4.9 [facility] Comment on above: Performed By: #### P OCGL #### [address] [address] ALP [Catalytic activity/Vol] 65 U/L Normal 35-104 [facility] Comment on above: Performed By: #### P OCGL #### [facility] [address] [address] ALT [Catalytic activity/Vol] 24 U/L Normal 10-35 [facility] Comment on above: Performed By: #### P OCGL #### [facility] [facility] [address] [place] [id number] AST [Catalytic activity/Vol] 23 U/L Normal 10-35 [facility] Comment on above: Performed By: #### P OCGL #### [facility] [employer] [address] [address] Bilirubin [Mass/Vol] 0.4 mg/dL Normal 0.3-1.2 [facility] Comment on above: Performed By: #### P OCGL #### [facility] [address] [place] [address] Calcium [Mass/Vol] 9.6 mg/dL Normal 8.8-10.2 [facility] Comment on above: Performed By: #### P OCGL #### [facility] [address] [place] [address] CO2 [Moles/Vol] 26 mmol/L Normal 22-29 [facility] Comment on above: Performed By: #### P OCGL #### [facility] [address] [address] Creatinine [Mass/Vol] 1.3 mg/dL High 0.5-0.9 [facility] Comment on above: Performed By: #### P OCGL #### [address] [address] Glucose [Mass/Vol] 259 mg/dL High 74-109 [facility] Comment on above: Performed By: #### P OCGL #### [address] [address] Protein [Mass/Vol] 7.2 g/dL Normal 6.4-8.3 [facility] Comment on above: Performed By: #### P OCGL #### [address] [address] Urea nitrogen [Mass/Vol] 43 mg/dL High 8-23 [facility] Comment on above: Performed By: #### P OCGL #### [address] [address] Chloride [Moles/Vol] 96 mmol/L Low 98-111 [facility] Comment on above: Performed By: #### P OCGL #### [address] [address] POTASSIUM WITH REFLEX MG 5.0 meq/L Normal 3.5-5.2 [facility] Comment on above: Result Comment: Low level specimen hemolysis is present as indicated by the interference index on the Yamilet analyzer. ??The reported K+ level may be falsely increased. If clinically warranted, recollection of the specimen is suggested. Performed By: #### P OCGL #### [address] [address] Sodium [Moles/Vol] 136 mmol/L Normal 135-145 [facility] Comment on above: Performed By: #### P OCGL #### [address] [address] Comprehensive metabolic 2000 panelon 07-06-2024 Albumin BCG dye [Mass/Vol] 4.3 g/dL 3.4 - 4.9 g/dL [facility] ALP [Catalytic activity/Vol] 65 U/L 35 - 104 U/L [facility] ALT No additional P-5'-P [Catalytic activity/Vol] 24 U/L 10 - 35 U/L [facility] Comment on above: Performed at [facility] [address] [place] [address] AST [Catalytic activity/Vol] 23 U/L 10 - 35 U/L [facility] Bilirubin [Mass/Vol] 0.4 mg/dL 0.3 - 1 .2 mg/dL [facility] Calcium [Mass/Vol] 9.6 mg/dL 8.8 - 10. 2 mg/dL [facility] Chloride [Moles/Vol] 96 mmol/L Low 98 - 11 1 meq/L [facility] CO2 [Moles/Vol] 26 mmol/L 22 - 29 meq/L [facility] Creatinine [Mass/Vol] 1.3 mg/dL High 0.5 - 0.9 mg/dL [facility] Glucose [Mass/Vol] 259 mg/dL High 74 - 109 mg/dL [facility] Potassium [Moles/Vol] 5.0 mmol/L 3.5 - 5.2 meq/L [facility] Comment on above: Low level specimen h emolysis is present as indicated by the interference index on the Yamilet analyzer. The reported K+ level may be falsely increased. If clinically warranted, recollection of the specimen is suggested. Protein [Mass/Vol] 7.2 g/dL 6.4 - 8.3 g/dL [facility] Sodium [Moles/Vol] 136 mmol/L 135 - 145 meq/L [facility] Urea nitrogen [Mass/Vol] 43 mg/dL High 8 - 23 mg/dL [facility] EKG 12 leadOrdered By: Kp Rodriges on 07-06-2024 Atrial Rate 68 BPM [facility] [employer] Work Phone: P Fowler 58 degrees [facility] [employer] Work Phone: P-R Interval 146 ms [facility] [employer] Work Phone: Q-T Interval 422 ms [facility] [employer] Work Phone: QRS Duration 82 ms [employer] Work Phone: QTc Calculation (Bazett) 448 ms [employer] Work Phone: R Fowler 67 degrees Keith [employer] Work Phone: T Fowler 66 degrees [employer] Work Phone: Ventricular Rate 68 BPM [employer] Work Phone: Keith Biscotti Work Phone: EKG 12 leadon 07-06-2024 Normal sinus rhythm Possible Left atrial enlargement ST & T wave abnormality, consider anterior ischemia Abnormal ECG No previous ECGs available Clinical correlation is indicated Confirmed by Kp Rodriges ([id number]) on 07/06/2024 11:10:52 PM [facility] Kp Vargas MD - 07/06/2024 Normal sinus rhythm Possible Left atrial enlargement ST & T wave abnormality, consider anterior ischemia Abnormal ECG No previous ECGs available Clinical correlation is indicated Confirmed by Kp Rodriges ([id number]) on 07/06/2024 11:10:52 PM [employer] EKG 12-LEADon 07-06-2024 EKG 12-LEAD 68 68 146 82 [phone] Normal sinus rhythm Possible Left atrial enlargement ST & T wave abnormality, consider anterior ischemia Abnormal ECG No previous ECGs available Clinical correlation is indicated Confirmed by Kp Rodriges ([id number]) on 07/06/2024 11:10:52 PM [email or web address] RetrieveTestByDateTime ?AkyopecIL=[id number]&D ate=06-07-2024&Time=20 %3a11%3a37%3a00&TestTy pe=ECG&Site=3&OutputTy pe=PDF&Ext=PDF Normal [facility] GFR, ESTIMATEDon 07-06-2024 GFR/1.73 sq M.predicted MDRD (S/P/Bld) [Vol rate/Area] 46 mL/min/{1.73_m2} Abnormal >60 [facility] Comment on above: Pediatric calculator link https://www.kidney.org/professionals/kdoqi/gfr_calculatorped [...] that affects renal tubular secretion. Performed at [facility] [place] [address] Result Comment: Pedi atric calculator link https://www.kidney.org/professionals/kdoqi/gfr_calculatorped [...] secretion. Performed By: #### P OCGL #### [facility] [address] [place], [place] [id number] GLUCOSE POCon 07-06-2024 Glucose [Mass/Vol] 280 mg/dL High 70-108 [facility] [employer] Comment on above: Performed at [facility] [address] [place] [address] Performed By: #### P OCGL #### [facility] [address] [place], [place] [id number] Glucose Auto test strip (Bld ) [Mass/Vol]on 07-06-2024 Interpretation and review of laboratory results Abnormal [facility] [employer] INR Coag (PPP) [Relative jackie e]on 07-06-2024 [facility] No Panel Informationon 07-06 Interpretation and review of laboratory results Abnormal [facility] [employer] PROTHOMBIN TIMEon 07-06-2024 INR Coag (Bld) [Relative time] 1.02 {INR} Normal 0.85-1.13 [facility] Comment on above: Result Comment: ---- -----INDICATION INR Reference Range DVT, PE, AF, AMI, tissue heart valve 2.0 to 3.0 Mechanical prosthetic valves 2.5 to 3.5 Performed By: #### P OCGL #### [facility] [address] [place] [address] Protime-INRon 07-06-2024 INR Coag (PPP) [Relative time] 1.02 {INR} 0.85 - 1.13 [facility] Comment on above: ---------INDICATION- INR Reference Range DVT, PE, AF, AMI, tissue heart valve 2.0 to 3.0 Mechanical prosthetic valves 2.5 to 3.5 Performed at [facility] [address] [place] [address] aPTT Coag (Bld) [Time]on aPTT Coag (PPP) [Time] 29.5 s Jaylan n [facility] [employer] Comment on above: Therapeutic Heparin Reference Range= 60-95 seconds (corresponds to 0.3 to 0.7 u/mL Anti-Xa factor activity) Performed at [facility] [address] [place] [address] Estimated glomerular filtrat ion rate (GFR) non- Americanon 06-27-2024 GFR/1.73 sq M.predicted among non-blacks MDRD (S/P/Bld) [Vol rate/Area] Estimated glomerular filtration rate (GFR) non- Low >=60 mL/min/1.73 m 2 [facility] Laboratory - Chemistry and C hemistry - challengeon 06-27-2024 Calcium [Mass/Vol] 9.8 mg/dL 8.5-10.1 [facility] Chloride [Moles/Vol] 101 mmol/L 98-107 [facility] CO2 [Moles/Vol] 28.6 mmol/L 21.0-32.[address] [facility] Creatinine [Mass/Vol] 1.41 mg/dL High 0.55-1.02 [facility] GFR/1.73 sq M.predicted MDRD (S/P/Bld) [Vol rate/Area] 45 mL/min/{1.73_m2} Low >=60 mL/min/1.73 m 2 [facility] Glucose [Mass/Vol] 66 mg/dL Low 74-106 [facility] Potassium [Moles/Vol] 5.1 mmol/L 3.5-5.1 [facility] Sodium [Moles/Vol] 139 mmol/L 136-145 [facility] Urea nitrogen [Mass/Vol] 29.0 mg/dL High 7.0-18.0 [facility] Urea nitrogen/Creatinine [Mass ratio] 20.6 mg/mg [facility] Bilirubin Ql (U) LARGE Abnormal NEGATIVE [facility] Glucose (U) [Mass/Vol] Negative NEGATIVE [facility] Ketones Ql (U) TRACE mg/dL Abnormal NEGATIVE [facility] pH (U) 5.5 [pH] 5.0-9.0 [facility] Specific gravity (U) [Rel density] 1.025 1.005-1.025 [facility] Urobilinogen Qn (U) 0.2 {Nela'U}/dL 0.2-1.0 [facility] Laboratory - Specimen inform ationon 06-27-2024 Appearance (U) CLEAR CLEAR [facility] Color (U) YELLOW YELLOW [facility] Laboratory - Urinalysison Leukocyte esterase Test strip Ql (U) Negative NEGATIVE [facility] Nitrite Ql (U) Negative NEGATIVE [facility] Protein Ql (U) Negative NEG/TRACE [facility] No Panel Informationon 06-27 Urine Microscopic Review NO [facility] Urine Occult Blood Negative NEGATIVE [facility] Serum or plasma anion gap de terminationon 06-27-2024 Anion gap [Moles/Vol] Serum or plasma an ion gap determination [facility] No Panel Informationon 06-01 Miscellaneous Test COMMENT . [facility] Comment on above: Test Ordered: [id number] Aerobic Cult, Extended IncubAerobic Cult, Extended Incub [...] STetracycline STrimethoprim/Sulfa SVancomycin SPerformed at: - [facility] [address] [id number] Director: Noam Haskins PhD, Phone: [phone] Basophils Auto (Bld) [#/Vol] on 05-31-2024 Basophils (Bld) [#/Vol] Automated basophil count 0.0-0.1 [facility] Basophils/100 WBC Auto (Bld) on 05-31-2024 Basophils/100 WBC (Bld) Automated basophil % 0.2-2.0 [facility] Eosinophils/100 WBC Auto (Bl d)on 05-31-2024 Eosinophils/100 WBC (Bld) Automated eosinophil % 0.9-7.0 [facility] Erythrocyte distribution wid th Auto (RBC) [Ratio]on 05-31-2024 Erythrocyte distribution width (RBC) [Ratio] Erythrocyte distribution width [Ratio] by Automated count 11.0-15.0 [facility] Hematocrit Auto (Bld) [Volum e fraction]on 05-31-2024 Hematocrit (Bld) [Volume fraction] Hematocrit [Volume Fraction] of Blood by Automated count 36.0-48.0 [facility] Hemoglobin [Mass/volume] in Bloodon 05-31-2024 Hemoglobin (Bld) [Mass/Vol] Hemoglobin [Mass/volume] in Blood 12.0-16.0 [facility] Laboratory - Hematology and Cell countson 05-31-2024 ESR (Bld) [Velocity] 7 mm/h <=30 [facility] Immature granulocytes/100 WBC (Bld) 0.2 % 0.0-0.5 [facility] Leukocytes [#/volume] correc chip for nucleated erythrocytes in Blood by Automated counon 05-31-2024 WBC corrected for nucl RBC Auto (Bld) [#/Vol] Leukocytes [#/volume] corrected for nucleated erythrocytes in Blood by Automated coun 4.0-11.0 [facility] Lymphocytes Auto (Bld) [#/Vo l]on 05-31-2024 Lymphocytes (Bld) [#/Vol] Lymphocytes [#/volume] in Blood by Automated count 1.2-3.8 [facility] Lymphocytes/100 WBC Auto (Bl d)on 05-31-2024 Lymphocytes/100 WBC (Bld) Lymphocytes/100 leukocytes in Blood by Automated count 20.5-60.0 [facility] MCH Auto (RBC) [Entitic mass ]on 05-31-2024 MCH (RBC) [Entitic mass] MCH [Entitic mass] by Automated count 26.7-34.0 [facility] MCHC Auto (RBC) [Mass/Vol]on 05-31-2024 MCHC (RBC) [Mass/Vol] MCHC [Mass/volume] by Automated count 29.9-35.2 [facility] MCV Auto (RBC) [Entitic vol] on 05-31-2024 MCV (RBC) [Entitic vol] MCV [Entitic volume] by Automated count 81.0-99.0 [facility] Monocytes Auto (Bld) [#/Vol] on 05-31-2024 Monocytes (Bld) [#/Vol] Automated blood monocyte count 0.3-0.8 [facility] Monocytes/100 WBC Auto (Bld) on 05-31-2024 Monocytes/100 WBC (Bld) Automated monocyte % 1.7-12.0 [facility] Neutrophils Auto (Bld) [#/Vo l]on 05-31-2024 Neutrophils (Bld) [#/Vol] Neutrophils [#/volume] in Blood by Automated count 1.4-6.5 [facility] Neutrophils/100 WBC Auto (Bl d)on 05-31-2024 Neutrophils/100 WBC (Bld) Automated neutrophil % 43.0-75.0 [facility] No Panel Informationon 05-31 C-Reactive Protein, Quantitative <0.50 mg/dL <=0.50 [facility] Eosinophils # (Auto) 0.1 10 3/uL 0.0-0.7 [facility] Immature Granulocyte # (Auto) 0.01 10 3/uL 0.00-0.03 [facility] Platelet mean volume Auto (B ld) [Entitic vol]on 05-31-2024 Platelet mean volume (Bld) [Entitic vol] Platelet mean volume [Entitic volume] in Blood by Automated count Low 9.5-13.5 [facility] Platelets Auto (Bld) [#/Vol] on 05-31-2024 Platelets (Bld) [#/Vol] Platelets [#/volume] in Blood by Automated count 150-450 [facility] RBC Auto (Bld) [#/Vol]on RBC (Bld) [#/Vol] Erythrocytes [#/volume] in Blood by Automated count 4.20-5.40 [facility] Basophils Auto (Bld) [#/Vol] on 12-27-2023 Basophils (Bld) [#/Vol] 0.1 10 3/uL 0.0-0.1 [facility] Basophils/100 WBC Auto (Bld) on 12-27-2023 Basophils/100 WBC (Bld) 1.0 % 0.2-2.0 [facility] Cholesterol in LDL Calc [Mas s/Vol]on 12-27-2023 Cholesterol in LDL [Mass/Vol] 63.0 mg/dL [facility] Comment on above: <100 mg/dl [id number] 0-129 mg/dl NEAR OR ABOVE [id number] mg/dl BORDERLINE [id number] mg/dl HIGH>190 mg/dl VERY HIGH Cholesterol in VLDL Calc [Ma ss/Vol]on 12-27-2023 Cholesterol in VLDL [Mass/Vol] 45.8 mg/dL [facility] Eosinophils/100 WBC Auto (Bl d)on 12-27-2023 Eosinophils/100 WBC (Bld) 8.3 % High 0.9-7.0 [facility] Erythrocyte distribution wid th Auto (RBC) [Ratio]on 12-27-2023 Erythrocyte distribution width (RBC) [Ratio] 11.9 % 11.0-15.0 [facility] Estimated glomerular filtrat ion rate (GFR) non- Americanon 12-27-2023 GFR/1.73 sq M.predicted among non-blacks MDRD (S/P/Bld) [Vol rate/Area] 47 mL/min/{1.73_m2} Low >=60 [facility] Globulin Calc (S) [Mass/Vol] on 12-27-2023 Globulin (S) [Mass/Vol] 3.2 g/dL [facility] Glucose mean value [Mass/vol ume] in Blood Estimated from glycated hemoglobinon 12-27-2023 Average glucose Estimated from glycated hemoglobin (Bld) [Mass/Vol] 143 mg/dL [facility] Hematocrit Auto (Bld) [Volum e fraction]on 12-27-2023 Hematocrit (Bld) [Volume fraction] 39.7 % 36.0-48.0 [facility] Hemoglobin [Mass/volume] in Bloodon 12-27-2023 Hemoglobin (Bld) [Mass/Vol] 12.9 g/dL 12.0-16.0 [facility] Laboratory - Chemistry and C hemistry - challengeon 12-27-2023 Albumin [Mass/Vol] 3.7 g/dL 3.4-5.0 [facility] ALP [Catalytic activity/Vol] 61 U/L 46-116 [facility] ALT [Catalytic activity/Vol] 36 U/L 14-59 [facility] AST [Catalytic activity/Vol] 24 U/L 15-37 [facility] Bilirubin [Mass/Vol] 0.6 mg/dL 0.2-1.0 [facility] Calcium [Mass/Vol] 9.2 mg/dL 8.5-10.1 [facility] Chloride [Moles/Vol] 101 mmol/L 98-107 [facility] Cholesterol [Mass/Vol] 146 mg/dL <=200 [facility] Cholesterol in HDL [Mass/Vol] 38 mg/dL Low 40-60 [facility] Comment on above: > or =60 mg/dl - LOW CARDIOVASCULAR RISK<40 mg/dl - HIGH CARDIOVASCULAR RISK CO2 [Moles/Vol] 26.8 mmol/L 21.0-32.[address] [facility] Creatinine [Mass/Vol] 1.17 mg/dL High 0.55-1.02 [facility] GFR/1.73 sq M.predicted MDRD (S/P/Bld) [Vol rate/Area] 56 mL/min/{1.73_m2} Low >=60 [facility] Glucose [Mass/Vol] 138 mg/dL High 74-106 [facility] Potassium [Moles/Vol] 4.5 mmol/L 3.5-5.1 [facility] Protein [Mass/Vol] 6.9 g/dL 6.4-8.2 [facility] Sodium [Moles/Vol] 138 mmol/L 136-145 [facility] Triglyceride [Mass/Vol] 229 mg/dL High <=150 [facility] TSH Qn 0.834 m[IU]/L 0.358-3.740 [facility] Urea nitrogen [Mass/Vol] 23.0 mg/dL High 7.0-18.0 [facility] Urea nitrogen/Creatinine [Mass ratio] 19.7 mg/mg [facility] Laboratory - Hematology and Cell countson 12-27-2023 HbA1c (Bld) [Mass fraction] 6.6 % High 4.5-6.2 [facility] Comment on above: ADA RECOMMENDED LIMI T 4.0 - 6.0ADA THERAPEUTIC TARGET < 7.0ACTION SUGGESTED> 7.0 Immature granulocytes/100 WBC (Bld) 0.4 % 0.0-0.5 [facility] Leukocytes [#/volume] correc chip for nucleated erythrocytes in Blood by Automated counon 12-27-2023 WBC corrected for nucl RBC Auto (Bld) [#/Vol] 5.2 10 3/uL 4.0-11.0 [facility] Lymphocytes Auto (Bld) [#/Vo l]on 12-27-2023 Lymphocytes (Bld) [#/Vol] 2.2 10 3/uL 1.2-3.8 [facility] Lymphocytes/100 WBC Auto (Bl d)on 12-27-2023 Lymphocytes/100 WBC (Bld) 42.1 % 20.5-60.0 [facility] MCH Auto (RBC) [Entitic mass ]on 12-27-2023 MCH (RBC) [Entitic mass] 28.5 pg 26.7-34.0 [facility] MCHC Auto (RBC) [Mass/Vol]on 12-27-2023 MCHC (RBC) [Mass/Vol] 32.5 g/dL 29.9-35.2 [facility] MCV Auto (RBC) [Entitic vol] on 12-27-2023 MCV (RBC) [Entitic vol] 87.8 fL 81.0-99.0 [facility] Monocytes Auto (Bld) [#/Vol] on 12-27-2023 Monocytes (Bld) [#/Vol] 0.3 10 3/uL 0.3-0.8 [facility] Monocytes/100 WBC Auto (Bld) on 12-27-2023 Monocytes/100 WBC (Bld) 6.4 % 1.7-12.0 [facility] Neutrophils Auto (Bld) [#/Vo l]on 12-27-2023 Neutrophils (Bld) [#/Vol] 2.2 10 3/uL 1.4-6.5 [facility] Neutrophils/100 WBC Auto (Bl d)on 12-27-2023 Neutrophils/100 WBC (Bld) 41.8 % Low 43.0-75.0 [facility] No Panel Informationon 12-26 Eosinophils # (Auto) 0.4 10 3/uL 0.0-0.7 [facility] Immature Granulocyte # (Auto) 0.02 10 3/uL 0.00-0.03 [facility] Platelet mean volume Auto (B ld) [Entitic vol]on 12-27-2023 Platelet mean volume (Bld) [Entitic vol] 9.6 fL 9.5-13.5 [facility] Platelets Auto (Bld) [#/Vol] on 12-27-2023 Platelets (Bld) [#/Vol] 190 10 3/uL 150-450 [facility] RBC Auto (Bld) [#/Vol]on RBC (Bld) [#/Vol] 4.52 10 6/uL 4.20-5.40 [facility] Serum or plasma albumin/glob ulin mass ratioon 12-27-2023 Albumin/Globulin [Mass ratio] 1.2 {ratio} [facility] Serum or plasma anion gap de terminationon 12-27-2023 Anion gap [Moles/Vol] 14.7 mmol/L Fi [facility] Serum or plasma total choles terol/high density lipoprotein (HDL) cholesterol mass desiree 12-27-2023 Cholesterol.total/Chol esterol in HDL [Mass ratio] 3.8 {ratio} [facility] Comment on above: 3.3 - [...] the medial and lateral compartments. 4. Tiny Prelsey's cyst. Electronically authenticated by: BERNY QUISPE Date: 2022-08-24 07:19 Normal [facility] CBC AUTO DIFFon 03-30-2022 BASO # 0.0 103/ul Normal 0.0-0.1 [facility] Comment on above: Performed By: #### C BC #### [facility] [address] [address] [address] Rc Foster Basophils/100 WBC (Bld) 0.4 % Normal 0.2-2.0 [facility] Comment on above: Performed By: #### C BC #### [facility] [address] [address] [address] Rc Foster EO # 0.3 103/ul Normal 0.0-0.7 [facility] Comment on above: Performed By: #### C BC #### [facility] [address] [place] [address] Dr. Rc Foster Eosinophils/100 WBC (Bld) 4.9 % Normal 0.9-7.0 [facility] Comment on above: Performed By: #### C BC #### [facility] [address] [place] [address] Dr. Rc Foster Erythrocyte distribution width (RBC) [Ratio] 12.2 % Normal 11.0-15.0 [facility] Comment on above: Performed By: #### C BC #### [facility] [address] [place] [address] Dr. Rc Foster Hematocrit (Bld) [Volume fraction] 39.8 % Normal 36.0-48.0 [facility] Comment on above: Performed By: #### C BC #### [facility] [address] [place] [address] Dr. Rc Foster Hemoglobin (Bld) [Mass/Vol] 13.1 g/dL Normal 12.0-16.0 [facility] Comment on above: Performed By: #### C BC #### [facility] [address] [place] [address] Dr. Rc Foster IG # 0.02 10e3/ul Normal 0.00-0.03 [facility] Comment on above: Performed By: #### C BC #### [facility] [address] [place] [address] Dr. Rc Foster IG % 0.4 % Normal 0.0-0.5 [facility] Comment on above: Performed By: #### C BC #### [facility] [address] [place] [address] Dr. Rc Foster LYMPH # 2.1 103/ul Normal 1.2-3.8 [facility] Comment on above: Performed By: #### C BC #### [facility] [address] [place] [address] Dr. Rc Foster Lymphocytes/100 WBC (Bld) 37.1 % Normal 20.5-60.0 [facility] Comment on above: Performed By: #### C BC #### [facility] Laboratory [address] [place] [address] Dr. Rc Foster MANUAL DIFF REQ NO Normal [facility] Comment on above: Performed By: #### C BC #### [facility] Laboratory [address] [place] [address] Dr. Rc Foster MCH (RBC) [Entitic mass] 28.7 pg Normal 26.7-34.0 [facility] Comment on above: Performed By: #### C BC #### [facility] Laboratory [address] [place] [address] Dr. Rc Foster MCHC (RBC) [Mass/Vol] 32.9 g/dL Normal 29.9-35.2 [facility] Comment on above: Performed By: #### C BC #### [facility] Laboratory [address] [place] [address] Dr. Rc Foster MCV (RBC) [Entitic vol] 87.1 fL Normal 81.0-99.0 [facility] Comment on above: Performed By: #### C BC #### [facility] Laboratory [address] [place] [address] Dr. Rc Foster MONO # 0.4 103/ul Normal 0.3-0.8 The [facility] Comment on above: Performed By: #### C BC #### [facility] Laboratory [address] [place] [address] Dr. Rc Foster Monocytes/100 WBC (Bld) 6.7 % Normal 1.7-12.0 [facility] Comment on above: Performed By: #### C BC #### [facility] Laboratory [address] [place] [address] Dr. Rc Foster NEUT # 2.9 103/ul Normal 1.4-6.5 [facility] Comment on above: Performed By: #### C BC #### [facility] Laboratory [address] [place] [address] Dr. Rc Foster Neutrophils/100 WBC (Bld) 50.5 % Normal 43.0-75.0 [facility] Comment on above: Performed By: #### C BC #### [facility] Laboratory [address] [place] [address] Dr. Rc Foster Platelet mean volume (Bld) [Entitic vol] 9.7 fL Normal 9.5-13.5 [facility] Comment on above: Performed By: #### C BC #### [facility] Laboratory [address] [place] [address] Dr. Rc Foster PLT 189 103/ul Normal 150-450 [facility] Comment on above: Performed By: #### C BC #### [facility] Laboratory [address] [place] [address] Dr. Rc Foster RBC 4.57 106/ul Normal 4.20-5.40 [facility] Comment on above: Performed By: #### C BC #### [facility] Laboratory [address] [place] [address] Dr. Rc Foster WBC 5.7 103/ul Normal 4.0-11.0 [facility] Comment on above: Performed By: #### C BC #### [facility] Laboratory [address] [place] [address] Dr. Rc Foster GLYCOHEMOGLOBIN A1Con 2021 ADA RECOMMENDATION SEE BELOW Normal [facility] Comment on above: Result Comment: ADA RECOMMENDED LIMIT 4.0 - 6.0 ADA THERAPEUTIC TARGET < 7.0 ACTION SUGGESTED > 7.0 Performed By: #### A 1C #### [facility] Laboratory [address] [place], [place] [address] Dr. Rc Foster Glucose [Mass/Vol] 143 mg/dL Normal [facility] Comment on above: Performed By: #### A 1C #### [facility] Laboratory [address] [place], [place] [address] Dr. Rc Foster HbA1c (Bld) [Mass fraction] 6.6 % Critically high 4.5-6.2 [facility] Comment on above: Performed By: #### A 1C #### [facility] Laboratory [address] [place] [address] [address] Rc Foster LIPID PROFILEon 03-30-2022 CHOL-HDL RATIO NORM SEE BELOW Normal [facility] Comment on above: Result Comment: 3.3 - 4.4 LOW RISK 4.4 - 7.1 AVERAGE RISK 7.1 - 11.0 MODERATE RISK >11.0 HIGH RISK Performed By: #### T SH, CMP, LIPID ####[facility] [address] [place] [id number] Foster Cholesterol [Mass/Vol] 184 mg/dL Normal <=200 Th [facility] Comment on above: Performed By: #### T SH, CMP, LIPID ####[facility] [address] [place] [id number] Foster Cholesterol in HDL [Mass/Vol] 42 mg/dL Normal 40-60 [facility] Comment on above: Performed By: #### T SH, CMP, LIPID ####[facility] [address] [place] [id number] Foster Cholesterol in LDL [Mass/Vol] 87.0 mg/dL Normal [facility] Comment on above: Performed By: #### T SH, CMP, LIPID ####[facility] [address] [place] [id number] Foster Cholesterol.total/Chol esterol in HDL [Mass ratio] 4.4 {ratio} Normal [facility] Comment on above: Performed By: #### T SH, CMP, LIPID ####[facility] [address] [place] [id number]. Rc Foster HDL NORMAL > or = 60 mg/dl - LO W CARDIOVASCULAR RISK <40 mg/dl - HIGH CARDIOVASCULAR RISK Normal [facility] Comment on above: Performed By: #### T SH, CMP, LIPID ####[facility] [address] [place] [address]Dr. Rc Foster LDL CALC NORMAL SEE BELOW Normal [facility] Comment on above: Result Comment: <100 mg/dl OPTIMAL 100 - 129 mg/dl NEAR OR ABOVE OPTIMAL 130 - 159 mg/dl BORDERLINE HIGH 160 - 189 mg/dl HIGH >190 mg/dl VERY HIGH Performed By: #### T SH, CMP, LIPID ####[facility] [address] [place] [address]Dr. Rc Foster Triglyceride [Mass/Vol] 275 mg/dL Critically high <=150 [facility] Comment on above: Performed By: #### T SH, CMP, LIPID ####[facility] [address] [place] [address]Dr. Rc Foster VLDL CALC 55.0 mg/dL Normal [facility] Comment on above: Performed By: #### T MARY JANE, CMP, LIPID ####[facility] [address] [place] [address]Dr. Rc Foster PROF 14(COMP METB)on 022 Albumin [Mass/Vol] 4.0 g/dL Normal 3.4-5.0 [facility] Comment on above: Performed By: #### T MARY JANE, CMP, LIPID ####[facility] [address] [place] [address]Dr. Rc Foster Albumin/Globulin [Mass ratio] 1.1 {ratio} Normal [facility] Comment on above: Performed By: #### T SH, CMP, LIPID ####[facility] [address] [place] [address]Dr. Rc Foster ALP [Catalytic activity/Vol] 71 U/L Normal 46-116 [facility] Comment on above: Performed By: #### T SH, CMP, LIPID ####[facility] [address] [place] [address]Dr. Rc Foster ALT [Catalytic activity/Vol] 29 U/L Normal 14-59 [facility] Comment on above: Performed By: #### T SH, CMP, LIPID ####[facility] [address] [place] [address]Dr. Rc Foster Anion gap [Moles/Vol] 13.2 mmol/L Normal Th e [facility] Comment on above: Performed By: #### T SH, CMP, LIPID ####[facility] [address] [place] [address]Dr. Rc Foster AST [Catalytic activity/Vol] 17 U/L Normal 15-37 [facility] Comment on above: Performed By: #### T SH, CMP, LIPID ####[facility] [address] [place] [address]Dr. Rc Foster Bilirubin [Mass/Vol] 0.6 mg/dL Normal 0.2-1.0 [facility] Comment on above: Performed By: #### T SH, CMP, LIPID ####[facility] [address] [place], [place] [address]Dr. Rc Foster Calcium [Mass/Vol] 9.0 mg/dL Normal 8.5-10.1 [facility] Comment on above: Performed By: #### T SH, CMP, LIPID ####[facility] [address] [place] [address]Dr. Rc Foster Chloride [Moles/Vol] 102 mmol/L Normal 98-107 [facility] Comment on above: Performed By: #### T SH, CMP, LIPID ####[facility] [address] [place] [address]Dr. Rc Foster CO2 [Moles/Vol] 27.3 mmol/L Normal 21.0-32.0 [facility] Comment on above: Performed By: #### T SH, CMP, LIPID ####[facility] [address] [place] [address]Dr. Rc Foster Creatinine [Mass/Vol] 1.00 mg/dL Normal 0.55-1.02 [facility] Comment on above: Performed By: #### T SH, CMP, LIPID ####[facility] [address] [place] [id number]. Rc Foster EGFR-AF KUWAITI >60 Normal >=60 [facility] Comment on above: Performed By: #### T SH, CMP, LIPID ####[facility] [address] [place] [phone]. Rc Foster EGFR-NON AF KUWAITI 56 mL/min/1.73m2 Critically low >=60 [facility] Comment on above: Performed By: #### T SH, CMP, LIPID ####[facility] [address] [place] [address]Dr. Rc Foster Globulin (S) [Mass/Vol] 3.5 g/dL Normal [facility] Comment on above: Performed By: #### T SH, CMP, LIPID ####[facility] [address] [place] [address]Dr. Rc Foster Glucose [Mass/Vol] 159 mg/dL Critically high 74-106 [facility] Comment on above: Performed By: #### T SH, CMP, LIPID ####[facility] [address] [place] [address]Dr. Rc Foster Potassium [Moles/Vol] 4.5 mmol/L Normal 3.5-5.1 [facility] Comment on above: Performed By: #### T SH, CMP, LIPID ####[facility] [address] [place] [address]Dr. Rc Foster Protein [Mass/Vol] 7.5 g/dL Normal 6.4-8.2 [facility] Comment on above: Performed By: #### T SH, CMP, LIPID ####[facility] [address] [place] [address]Dr. Rc Foster Sodium [Moles/Vol] 138 mmol/L Normal 136-145 [facility] Comment on above: Performed By: #### T SH, CMP, LIPID ####[facility] [address] [place] [address]Dr. Rc Foster Urea nitrogen [Mass/Vol] 23.0 mg/dL Critically high 7.0-18.0 [facility] Comment on above: Performed By: #### T SH, CMP, LIPID ####[facility] [address] [place], [place] [address]Al. Rc Foster Urea nitrogen/Creatinine [Mass ratio] 23.0 mg/mg Normal [facility] Comment on above: Performed By: #### T SH, CMP, LIPID ####[facility] [address] [place], [place] [address]Wg. Rc Foster TSHon 03-30-2022 TSH 2.807 uIU/mL Normal 0.358-3.740 [facility] Comment on above: Performed By: #### T SH, CMP, LIPID ####[facility] [address] [place], [place] [address]Wj. Rc Foster US THYROIDon 03-30-2022 US THYROID [...] BERNY QUISPE Date: 2022-03-30 11:03 Normal [facility] MG MAMM SCREEN 3D LEX CADon 03-19-2022 MG MAMM SCREEN 3D LEX CAD Patient: CRAROLL FUENTES Exam Date: 03/19/2022 : 1960 Gender:F Ordering : DR ROBERT VILLASENOR D.O. Admission #: [id number] Family : Order #: [id number] CLICK HERE TO VIEW EXAM RADIOLOGY REPORT [...] Treatments None Family Cancers None LOCATION: The [facility] BREAST COMPOSITION: Scattered areas fibroglandular density. FINDINGS: [...] M.D. on 03/23/2022 at 11:59 Normal [facility] CBC AUTO DIFFon 11-27-2021 BASO # 0.0 103/ul Normal 0.0-0.1 [facility] Comment on above: Performed By: #### C BC #### [facility] Laboratory [address] [place] [address] Dr. Rc Foster Basophils/100 WBC (Bld) 0.7 % Normal 0.2-2.0 [facility] Comment on above: Performed By: #### C BC #### [facility] Laboratory [address] [place] [address] Dr. Rc Foster EO # 0.6 103/ul Normal 0.0-0.7 [facility] Comment on above: Performed By: #### C BC #### [facility] Laboratory [address] [place] [address] Dr. Rc Foster Eosinophils/100 WBC (Bld) 10.3 % Critically high 0.9-7.0 [facility] Comment on above: Performed By: #### C BC #### [facility] Laboratory [address] [place] [address] Dr. Rc Foster Erythrocyte distribution width (RBC) [Ratio] 12.4 % Normal 11.0-15.0 [facility] Comment on above: Performed By: #### C BC #### [facility] Laboratory [address] [place] [address] Dr. Rc Foster Hematocrit (Bld) [Volume fraction] 41.2 % Normal 36.0-48.0 [facility] Comment on above: Performed By: #### C BC #### [facility] Laboratory [address] [place] [address] Dr. Rc Foster Hemoglobin (Bld) [Mass/Vol] 13.4 g/dL Normal 12.0-16.0 [facility] Comment on above: Performed By: #### C BC #### [facility] Laboratory [address] [place] [address] Dr. Rc Foster IG # 0.01 10e3/ul Normal 0.00-0.03 [facility] Comment on above: Performed By: #### C BC #### [facility] Laboratory [address] [place] [address] Dr. Rc Foster IG % 0.2 % Normal 0.0-0.5 [facility] Comment on above: Performed By: #### C BC #### [facility] Laboratory [address] [place] [address] Dr. Rc Foster LYMPH # 2.3 103/ul Normal 1.2-3.8 [facility] Comment on above: Performed By: #### C BC #### [facility] Laboratory [address] [place] [address] Dr. Rc Foster Lymphocytes/100 WBC (Bld) 40.6 % Normal 20.5-60.0 [facility] Comment on above: Performed By: #### C BC #### [facility] Laboratory [address] [place] [address] Dr. Rc Foster MANUAL DIFF REQ NO Normal [facility] Comment on above: Performed By: #### C BC #### [facility] Laboratory [address] [place] [address] Dr. Rc Foster MCH (RBC) [Entitic mass] 28.8 pg Normal 26.7-34.0 [facility] Comment on above: Performed By: #### C BC #### [facility] Laboratory [address] [place] [address] Dr. Rc Foster MCHC (RBC) [Mass/Vol] 32.5 g/dL Normal 29.9-35.2 [facility] Comment on above: Performed By: #### C BC #### [facility] Laboratory [address] [place] [address] Dr. Rc Foster MCV (RBC) [Entitic vol] 88.6 fL Normal 81.0-99.0 [facility] Comment on above: Performed By: #### C BC #### [facility] Laboratory [address] [place] [address] Dr. Rc Foster MONO # 0.4 103/ul Normal 0.3-0.8 [facility] Comment on above: Performed By: #### C BC #### [facility] Laboratory [address] [place] [address] Dr. Rc oFster Monocytes/100 WBC (Bld) 7.6 % Normal 1.7-12.0 [facility] Comment on above: Performed By: #### C BC #### [facility] Laboratory [address] [place] [address] Dr. Rc Foster NEUT # 2.3 103/ul Normal 1.4-6.5 [facility] Comment on above: Performed By: #### C BC #### [facility] Laboratory [address] [place] [address] Dr. Rc Foster Neutrophils/100 WBC (Bld) 40.6 % Critically low 43.0-75.0 [facility] Comment on above: Performed By: #### C BC #### [facility] Laboratory [address] [place] [address] Dr. Rc Foster Platelet mean volume (Bld) [Entitic vol] 9.6 fL Normal 9.5-13.5 [facility] Comment on above: Performed By: #### C BC #### [facility] Laboratory [address] [place] [address] Dr. Rc Foster PLT 194 103/ul Normal 150-450 [facility] Comment on above: Performed By: #### C BC #### [facility] Laboratory [address] [place] [address] Dr. Rc Foster RBC 4.65 106/ul Normal 4.20-5.40 [facility] Comment on above: Performed By: #### C BC #### [facility] Laboratory [address] [place] [address] Dr. Rc Foster WBC 5.5 103/ul Normal 4.0-11.0 [facility] Comment on above: Performed By: #### C BC #### [facility] Laboratory [address] [place] [address] Dr. Rc Foster GLYCOHEMOGLOBIN A1Con 2021 ADA RECOMMENDATION SEE BELOW Normal [facility] Comment on above: Result Comment: ADA RECOMMENDED LIMIT 4.0 - 6.0 ADA THERAPEUTIC TARGET < 7.0 ACTION SUGGESTED > 7.0 Performed By: #### A 1C #### [facility] Laboratory [address] [place] [address] Dr. Rc Foster Glucose [Mass/Vol] 131 mg/dL Normal [facility] Comment on above: Performed By: #### A 1C #### [facility] Laboratory [address] [place] [address] Dr. Rc Foster HbA1c (Bld) [Mass fraction] 6.2 % Normal 4.5-6.2 [facility] Comment on above: Performed By: #### A 1C #### [facility] Laboratory [address] [place] [address] Dr. Rc Foster PROF CHEM 8 (BAS METB)on Anion gap [Moles/Vol] 15.2 mmol/L Normal [facility] Comment on above: Performed By: #### T SH, BMP #### [facility] Laboratory [address] [place] [address] Dr. Rc Foster Calcium [Mass/Vol] 8.5 mg/dL Normal 8.5-10.1 [facility] Comment on above: Performed By: #### T SH, BMP #### [facility] Laboratory [address] [place] [address] [address] Rc Foster Chloride [Moles/Vol] 100 mmol/L Normal 98-107 [facility] Comment on above: Performed By: #### T SH, BMP #### [facility] Laboratory [address] [place] [address] [address] Rc Foster CO2 [Moles/Vol] 26.6 mmol/L Normal 21.0-32.0 [facility] Comment on above: Performed By: #### T SH, BMP #### [facility] Laboratory [address] [place] [address] Dr. Rc Foster Creatinine [Mass/Vol] 1.15 mg/dL Critically high 0.55-1.02 [facility] Comment on above: Performed By: #### T MARY JANE, BMP #### [facility] Laboratory [address] [place] [address] Dr. Rc Foster EGFR-AF KUWAITI 58 mL/min/1.73m2 Critically low >=60 [facility] Comment on above: Performed By: #### T SH, BMP #### [facility] Laboratory [address] [place] [address] Dr. Rc Foster EGFR-NON AF [place]UWAITI 48 mL/min/1.73m2 Critically low >=60 [facility] Comment on above: Performed By: #### T MARY JANE, BMP #### [facility] Laboratory [address] [place] [address] Dr. Rc Foster Glucose [Mass/Vol] 211 mg/dL Critically high 74-106 [facility] Comment on above: Performed By: #### T SH, BMP #### [facility] Laboratory [address] [place] [address] Dr. Rc Foster Potassium [Moles/Vol] 4.8 mmol/L Normal 3.5-5.1 [facility] Comment on above: Performed By: #### T SH, BMP #### [facility] Laboratory [address] [place] [address] [address] Rc Foster Sodium [Moles/Vol] 137 mmol/L Normal 136-145 [facility] Comment on above: Performed By: #### T SH, BMP #### [facility] Laboratory [address] [place] [address] [address] Rc Foster Urea nitrogen [Mass/Vol] 33.0 mg/dL Critically high 7.0-18.0 [facility] Comment on above: Performed By: #### T SH, BMP #### [facility] Laboratory [address] [place] [address] [address] Rc Foster Urea nitrogen/Creatinine [Mass ratio] 28.7 mg/mg Normal [facility] Comment on above: Performed By: #### T SH, BMP #### [facility] Laboratory [address] [place] [address] Dr. Rc Foster TSHon 11-27-2021 TSH 0.744 uIU/mL Normal 0.358-3.740 [facility] Comment on above: Performed By: #### T MARY JANE, BMP #### [facility] Laboratory [address] [place] [address] Dr. Rc Foster SYMPTOMATIC COVID-19 ANTIGEN on 10-28-2021 EUA Statement SEE BELOW Normal [facility] Comment on above: Result Comment: This [...] revoked sooner. Performed By: #### C VDAGS ####[facility] [address] [place] [address]Dr. Rc Foster SARS-CoV-2 (COVID-19) RNA YARED+probe Ql (Unsp spec) Negative Normal NEGATIVE [facility] Comment on above: Performed By: #### C VDAGS ####[facility] [address] [place], [place] [address]JjDr. Rc Foster GLYCOHEMOGLOBIN A1Con 2021 ADA RECOMMENDATION SEE BELOW Normal [facility] Comment on above: Result Comment: ADA RECOMMENDED LIMIT 4.0 - 6.0 ADA THERAPEUTIC TARGET < 7.0 ACTION SUGGESTED > 7.0 Performed By: #### A 1C #### [facility] Laboratory [address] [place], [place] [address] Dr. Rc Foster Glucose [Mass/Vol] 128 mg/dL Normal [facility] Comment on above: Performed By: #### A 1C #### [facility] Laboratory [address] [place], [place] [address] Dr. Rc Foster HbA1c (Bld) [Mass fraction] 6.1 % Normal 4.5-6.2 [facility] Comment on above: Performed By: #### A 1C #### [facility] Laboratory [address] [place], [place] [address] Dr. Rc Foster Discharge CCD Assessmenton 0 09-06-2020 Discharge CCD Assessment [facility] Patient: CARROLL FUENTES [address] [place] [address] MR#: [id number] DISCHARGE CCD ASSESSMENT : 58 Service Date: 09/06/20 1018 Discharge CCD Assessment Assessment Patient discharged home to continue exercises, pain medication, and wound care Electronically Signed eSign Date and Time Melyssa Flores 09/06/20 1019 Tera Hernandez MD Normal [facility] GLUCOSE METERon 09-06-2020 Glucose [Mass/Vol] 126 mg/dL High 70-99 [facility] Comment on above: Order Comment: CONSE RVATION Result Comment: Fast ing GLUCOSE reference range has been updated per (ADA) [place] [employer]'s recommendation. 07/18/2018 Performed By: #### L 500.67883 ####Test performed at: [place] [address] Glucose [Mass/Vol] 205 mg/dL High 70-99 [facility] Comment on above: Order Comment: CONSE RVATION Result Comment: Fast ing GLUCOSE reference range has been updated per (ADA) [place] [employer]'s recommendation. 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 S/P cervical disc replacement 2. Status post lumbar spine surgery for decompression of spinal cord 3. Migraine 4. TSEPHANIE (obstructive sleep apnea) 5. RLS (restless legs [...] RES, Katarzyn a MD 09/06/20 1134 Normal [facility] Orthopedic Progress Noteon 0 09-06-2020 Orthopedic Progress Note [facility] Patient: CARROLL FUENTES [facility] [place] [address] MR#: [id number] PROGRESS NOTE - Orthopedic : 58 Service [...] RN 09/06/20 1022 Tera Hernandez MD Normal [facility] Anesthesia Noteon 09-05-2020 Anesthesia Note [facility] Patient: CARROLL FUENTES [address] [place] [address] MR#: [id number] ANESTHESIA NOTE : Service Date: 09/05/20811 Post-anesthesia [...] Signed eSign Date and Time Krystian Akers APRN-REPRESENTATIVE GOVERNMENT RELATIONS 09/05/2013 Chu Glez MD Normal [facility] BASIC MET PANELon 09-05-2020 Anion gap [Moles/Vol] 12 mmol/L Normal 6-18 [facility] Comment on above: Performed By: #### L 500.22698, L500.84440 #### Test performed at: [address] [address] Calcium [Mass/Vol] 8.7 mg/dL Normal 8.5-10.1 [facility] Comment on above: Performed By: #### L 500.55209, L500.40588 #### Test performed at: [address] [address] Chloride [Moles/Vol] 101 mmol/L Normal 98-107 [facility] Comment on above: Performed By: #### L 500.11958, L500.32738 #### Test performed at: [address] [address] CO2 [Moles/Vol] 25 mmol/L Normal 21-32 [facility] Comment on above: Performed By: #### L 500.54340, L500.18714 #### Test performed at: [address] [address] Creatinine [Mass/Vol] 1.020 mg/dL Normal 0.550-1.020 [facility] Comment on above: Performed By: #### L 500.78722, L500.15872 #### Test performed at: [address] [address] Glucose [Mass/Vol] 264 mg/dL High 70-99 [facility] Comment on above: Result Comment: Fast ing GLUCOSE reference range has been updated per (ADA) [place] Diabetes Association's recommendation. 07/18/2018 Performed By: #### L 500.66189, L500.13564 #### Test performed at: [address] [address] OSM 289 mosm/kg Normal 270-300 [facility] Comment on above: Performed By: #### L 500.20591, L500.11958 #### Test performed at: [address] [address] Potassium [Moles/Vol] 4.5 mmol/L Normal 3.5-5.1 [facility] Comment on above: Performed By: #### L 500.96868, L500.51825 #### Test performed at: [place] [id number] Sodium [Moles/Vol] 134 mmol/L Low 136-145 [facility] Comment on above: Performed By: #### L 500.49289, L500.48153 #### Test performed at: [place] [address] Urea nitrogen [Mass/Vol] 17 mg/dL Normal 7-18 [facility] Comment on above: Performed By: #### L 500.06099, L500.11821 #### Test performed at: [place] [address] GFR ESTIMATEon 09-05-2020 IF AMER > 60 Normal > 60 [facility] Comment on above: Result Comment: eGFR (Estimated GFR) Units of measure:mL/min/1.73 meters sq. *CALCULATION REVISED 02/11/2015;IDMS-traceable MDRD equation eGFR is derived from the reexpressed MDRD Study equation using the following parameters: serum creatinine, age, gender and race. An eGFR<60 mL/min/1.73m2 for >3 months is consistent with chronic kidney disease. Refer to KDOQI guidelines for clinical interpretation. Performed By: #### L 500.71343, L500.20011 #### Test performed at: [place] [address] IF non-AFR AMER 55 Low > 60 [facility] Comment on above: Performed By: #### L 500.08424, L500.55940 #### Test performed at: [place] [address] [place] [address] GLUCOSE METERon 09-05-2020 Glucose [Mass/Vol] 177 mg/dL High 70-99 [facility] Comment on above: Order Comment: CONSE RVATION Result Comment: Fast ing GLUCOSE reference range has been updated per (ADA) [place] Diabetes Association's recommendation. 07/18/2018 Performed By: #### L 500.62354 #### Test performed at: [address] [address] Glucose [Mass/Vol] 310 mg/dL High 70-99 [facility] Comment on above: Result Comment: Fast ing GLUCOSE reference range has been updated per (ADA) [place] Diabetes Association's recommendation. 07/18/2018 Insulin per scale Performed By: #### L 500.80928 ####Test performed at: [address] [address] Glucose [Mass/Vol] 281 mg/dL High 70-99 [facility] Comment on above: Result Comment: Fast ing GLUCOSE reference range has been updated per (ADA) [place] Diabetes [employer]'s recommendation. 07/18/2018 Insulin per sl scale Performed By: #### L 500.81866 #### Test performed at: [address] [address] Glucose [Mass/Vol] 105 mg/dL High 70-99 [facility] Comment on above: Result Comment: Fast ing GLUCOSE reference range has been updated per (ADA) [place] Diabetes Association's recommendation. 07/18/2018 Performed By: #### L 500.10790 #### Test performed at: [place] [address] [place] [address] HGB AND HCTon 09-05-2020 Hematocrit (Bld) [Volume fraction] 37.5 % Normal 36.0-48.0 [facility] Comment on above: Performed By: #### L 200.43722 #### Test performed at: [place] [address] Hemoglobin (Bld) [Mass/Vol] 12.5 g/dL Normal 12.0-15.0 [facility] Comment on above: Performed By: #### L 200.37449 #### Test performed at: [place] [address] Internal Med Progress Noteon 09-05-2020 Internal Med Progress Note [facility] Patient: CARROLL FUENTES [address] [place] [address] MR#: [id number] PROGRESS NOTE - Internal Medicine : 58 [...] 12.5 Hct (36.0 - 48.0 %) 37.5 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 S/P cervical [...] input. Disc (more content not included)... Normal [facility] OT Therapy Recommendationson 09-05-2020 OT Therapy Recommendations [facility] Patient: CARROLL FUENTES [address] [place] [address] MR#: [id number] OT THERAPY RECOMMENDATIONS : 58 Service Date: 09/05/20 1511 Therapy Recommendations Therapy Recommendations Recommendations OT evaluation completed. OT recommends HOME with FAmily assist. No further acute OT needs are indicated at this time. Electronically Signed eSign Date and Time Trupti Rojas OT 09/05/20 1512 Normal [facility] Orthopedic Progress Noteon 0 09-05-2020 Orthopedic Progress Note [facility] Patient: CARROLL FUENTES [address] [place] [address] MR#: [id number] PROGRESS NOTE - Orthopedic : 58 Service [...] eSign Date and Time RUBEN KHAN 09/05/20 7157 Tera Hernandez MD Normal [facility] PT Therapy Recommendationson 09-05-2020 PT Therapy Recommendations [facility] Patient: CARROLL FUENTES [facility] [place] [address] MR#: [id number] PT THERAPY RECOMMENDATIONS : 58 Service Date: 09/05/20 0914 Therapy Recommendations Therapy Recommendations Recommendations PT eval complete. No further acute PT needs. Recommend d/c home /c family assist. Electronically Signed eSign Date and Time Tiffanie Bashir PT 09/05/20 0914 Normal [facility] z OT Inpatient Discharge Not juan 09-05-2020 z OT Inpatient Discharge Note [facility] Patient: CARROLL FUENTES [address] [place] [id number] MR#: [id number] OT INPATIENT DISCHARGE NOTE : 58 Service [...] Time Trupti Rojas OT 09/05/20 1534 Normal [facility] z OT Inpatient Evaluationon 09-05-2020 z OT Inpatient Evaluation [facility] Patient: CARROLL FUENTES [address] [address] MR#: [id number] OT INPATIENT EVALUATION : 58 Inpatient OT HPI Date of Service 09/05/20 Time In: 1401 Time Out: 1412 Total Treatment Time (Mins) 11 Visit Reason LATERAL RECESS STENOSIS W/ RADICULOPATHY Surgery Type/Date s/p L L4-5 LAmi, foraminotomy, decompression on 09.04.20/ Lumbar spine precautions Referral Date 09/04/20 Tx Diagnosis: LOW BACK PAIN Insurance Name [facility] POS [facility] Hospital Course Pt is a left hand [...] 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 Objective Precautions [...] Excellent Nader (more content not included)... Normal [facility] z PT Inpatient Discharge Not juan 09-05-2020 z PT Inpatient Discharge Note [facility] Patient: CARROLL FUENTES [address] [place], [place] [address] MR#: [id number] PT INPATIENT DISCHARGE NOTE : 58 Service [...] Time Tiffanie Bashir PT 09/05/20 1139 Normal [facility] z PT Inpatient Evaluationon 09-05-2020 z PT Inpatient Evaluation [facility] Patient: CARROLL FUENTES [address] [place] [id number] MR#: [id number] PT INPATIENT EVALUATION : 58 Service Date: 09/05/20 0928 Inpatient PT HPI Date of Service 09/05/20 Time In: 0845 Time Out: 0907 Total Treatment Time (Mins) 22 Room Number 624 Visit Reason LATERAL RECESS STENOSIS W/ RADICULOPATHY Surgery Type: L L4-5 lami, foraminotomy, decompression Surgery Date: 09/04/20 Referral Date 09/04/20 Tx Diagnosis: LOW BACK PAIN [facility] Hospital Course 60 y.o female at [facility] for above sx d/t lateral recess [...] posture. 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 Pt agreeable to use of her cane [...] Time Tiffanie Bashir PT 09/05/20 1502 Normal [facility] GLUCOSE METERon 09-04-2020 Glucose [Mass/Vol] 94 mg/dL Normal 70-99 [facility] Comment on above: Result Comment: Fast ing GLUCOSE reference range has been updated per (ADA) [place] Diabetes [employer]'s recommendation. 07/18/2018 Performed By: #### L 500.99536 ####Test performed at: [place] [address] [place] [address] Internal Medicine Consultati onon 09-04-2020 Internal Medicine Consultation [facility] Patient: CARROLL FUENTES [address] [place] [id number] MR#: [id number] CONSULTATION - Internal Medicine : 58 Service [...] 0 (Reported) Entered as Reported by RAISA CABELOL on 09/04/20 1051 Last Action: Reviewed on [...] of Systems (more content not included)... Normal [facility] OPERATIVE REPORTon OPERATIVE REPORT NAME: CARROLL FUENTES MR#: [id number] SURGEON: Tera Hernandez MD DATE OF SURGERY: [...] there were no complications. TERA HERNANDEZ MD [facility] PT NAME: CARROLL FUENTES#: [id number] [address] [place], [place] [address] ACCT: [id number] : 58 OPERATIVE REPORT JFS/MODL/[id number] E/S: Tera Hernandez MD 09/18/[address] [facility] PT NAME: CARROLL FUENTSE MR#: [id number] [address] [place], [place] [address] ACCT: [id number] : 58 OPERATIVE REPORT Normal [facility] Primary Residenton Primary Resident [facility] Pt Name: CARROLL FUENTES MR#: [id number] [address] [place] [address] ACCT: [id number] [place] [id number] : 58 Service Date: 09/04/20 1603 Primary Resident/Call Primary Resident: [id number] [address] After Hours Call: [phone] Red Team Electronically Signed eSign Date and Time Ana Flanagan RES 09/16/20 1521 Normal [facility] LUMBAR SPINE 2 OR 3 VIEWSon 09-03-2020 LUMBAR SPINE 2 OR 3 VIEWS STUDY: LUMBAR SPINE 2 OR 3 VIEWS; 09/04/2020 2:57 pm INDICATION: LEFT L4-L5 LAMINECTOMY,FORAMINOTO MY,DECOMPRESSION. COMPARISON: None. ACCESSION NUMBER(S): [id number] ORDERING CLINICIAN: Tera Hernandez FINDINGS: Intraoperative fluoroscopy of the lumbar spine demonstrates surgical instruments posterior to L5. IMPRESSION: As above Normal [facility] CHEST PA/AP & LATERALon CHEST PA/AP & LATERAL STUDY: CHEST PA/AP LATERAL; 08/25/2020 11:00 am INDICATION: SOB/PAT. COMPARISON: None. ACCESSION NUMBER(S): [id number] ORDERING CLINICIAN: Madelyn Leone FINDINGS: The lungs are clear without pleural effusion. Normal heart size, mediastinum, elzbieta, and pulmonary vasculature. IMPRESSION: No active disease in the chest. Normal [facility] CONSULTATION REPORTon 2020 CONSULTATION REPORT NAME: CARROLL FUENTES MR#: [id number] SMOKING PIPE DRILLER AND THREADER: Madelyn Leone MD DATE OF CONSULTATION: 08/25/2020 [...] pulse ox is 98% on room air. [facility] PT NAME: CARROLL FUENTES MR#: [id number] [address] [place] [address] ACCT: [id number] : 58 CONSULTATION HEENT: Atraumatic head. Pupils [...] we are getting the results from her director of patient care in [place]. IMPRESSION: 1. Preop clearance for L4-L5 disk [...] courtesy of this consultation. MADELYN LEONE MD MS/MODL/[id number] E/S: Madelyn Leone MD 08/26/[address] [facility] PT NAME: CARROLL FUENTES MR#: [id number] [address] [place] [address] ACCT: [id number] : 58 CONSULTATION Normal [facility] LUMB SP COMP W FLEX/EXT 6 VW S>on 08-08-2020 LUMB SP COMP W FLEX/EXT 6 VWS> STUDY: LUMB SP COMP W FLEX/EXT 6 VWS>; 08/08/2020 9:43 am INDICATION: BACK PAIN. COMPARISON: No available comparisons. ACCESSION NUMBER(S): [id number] ORDERING CLINICIAN: Tera Hernandez TECHNIQUE: 6 views [...] L5-S1 level. No evidence of instability.. Normal [facility] XR SHLDR >/=3V AP/RUSH AP/OTH R RTon 07-03-2018 XR SHLDR >/=3V AP/RUSH AP/OTHR RT * * *Final Report* * * DATE OF EXAM: Jul 03 2018 9:32AM X 5253 - XR SHLDR >/=3V AP/RUSH AP/OTHR [...] on Jul 03 2018 10:17AM EST [id number] [facility] ANES [place] 06-20-2018 ANES POST HNO ID: [id number] Author: Rohit Velarde Service: Anesthesiology Author Type: [...] 20, 2018 TIME: 2:38 PM PAGER/CONTACT #[facility] PREOP HNO ID: [id number] Author: Rohit Velarde Service: Anesthesiology Author Type: [...] June 20, 2018 TIME: 9:35 AM CSN: [id number] [facility] BRIEF OP NOTon 06-20-2018 BRIEF OP NOT HNO ID: [id number] Author: Kusum Francisco Service: Orthopaedic Surgery Author Type: Resident Type: Brief Op Note Filed: 06/20/2018 5:49 PM Note Text: BRIEF OP NOTE LOG ID: [id number] Surgery/Procedure Date: 06/20/2018 Incision/Procedure Start Time: 11:18 AM Incision Close/Procedure End Time: 1:17 PM Surgeon(s)/Procedurali st(s) and Client Support Associate(s): Surgeon(s) and Role: * Jenna Garsia [...] 20, 2018 TIME: 5:49 PM PAGER/CONTACT #: [facility] CASE MANAGEMon 06-20-2018 CASE MANAGEM HNO ID: [id number] Author: May Herrera (Sw) Service: Care Management Author Type: Returns Clerk Type: Care Mgt Progress Note Filed: [...] is pcp summary of care sent via zweitgeist () Nurse to provide discharge instructions. TRANSPORTATION ARRANGEMENTS: Car Spouse ADDITIONAL CONTACT RESOURCES: Needs Prior to Discharge: Ready for Discharge Appointments for Next 45 Days Date Time Provider Location Dept Phone 07/03/2018 10:00 AM CAROLA BAPTISTE AT [phone] 07/03/2018 10:30 AM GABRIEL CANTU) LATOSHA AT [phone] 07/31/2018 2:15 PM JENNA GARSIA AT [phone] Pt to be discharged home to follow up as above. SIGNATURE: DARIO Saini PATIENT NAME: Carroll Fuentes DATE: June 20, 2018 TIME: 5:31 PM PAGER/CONTACT #: [phone] [facility] CASE MGT INIT ASSESon 2018 CASE MGT INIT ASSROCHELLE HNO ID: [id number] Author: May Herrera (Sw) Service: Care Management Author Type: Returns Clerk Type: Care Mgt Initial Assessment Filed: 06/20/2018 5:31 PM Note Text: CARE MANAGEMENT: ASSESSMENT AND DISCHARGE PLAN SERVICE DATE: 06/20/2018 SERVICE TIME: 5:27p PRIMARY CARE PHYSICIAN: Robert Villasenor MD ADMISSION STATUS: Inpatient Needs Prior to Discharge: Ready for Discharge MEDICAL: Patient/Qc Chemist Stated Goals: To improve my functional status Health Insurance: [employer] None Health Issues Impacting Discharge Plan: Pt [...] Spouse Financial Resources: 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 O.Therapy recommend home. Spouse visiting at bedside and will transport pt home later today.Further discharge needs not anticipated.SW/TCC to follow to assist with plans for discharge. SIGNATURE: DARIO Saini PATIENT NAME: Carroll Fuentes DATE: June 20, 2018 TIME: 5:27 PM PAGER/CONTACT #: [phone] [facility] CONSULTon 06-20-2018 CONSULT HNO ID: [id number] Author: Dulce Green Service: General Internal Medicine [...] went to see Dr Garsia in Apr, showed advanced OA. She underwent [...] Disp: Rfl: 06/19/2018 at 0630 rizatriptan (MAXALT PRE WAVE ASSEMBLER) 10 mg disintegrating tablet DISSOLVE 1 TABLET [...] the care of your patient. Dulce Green APRN.INFORMATION DIRECTOR June 20, 2018 4:34 PM Normal [facility] NURSING PROGon 06-20-2018 Protein mass conc HNO ID: [id number] Author: Fela (Rn) FLETCHER Phillips Service: (none) Author Type: Registered Nurse Type: Nursing Progress Note Filed: 06/20/2018 7:39 PM Note Text: Nursing Progress Note Patient Name: Carroll Fuentes Patient Location: [facility]/ [place] __ Daily Note: 1545. Care assumed. Pt [...] at bedside. 1720. Dr. Meeks and Dulce EXPERIMENTAL MACHINIST at bedside, plan is to stay for [...] note was completed by: Fela Phillips RN [facility] Protein mass conc HNO ID: [id number] Author: Wendy (Rn) FLETCHER Underwood Service: Nursing Author Type: Registered Nurse Type: Nursing Progress Note Filed: 06/20/2018 10:20 AM Note Text: Nursing Progress Note Patient Name: Carroll Fuentes Patient Location: SURGERY [facility] S* __ Daily Note:Right interscalene nerve block with ultrasound guidance with Dr. Velarde and Dr. Marlow at bedside. Patient tolerated procedure well, VSS, will continue to monitor as we wait for OR team. Resting comfortably with no complaints of pain at this time. This note was completed by: Wendy Underwood RN [facility] OPERATIVE NOon 06-20-2018 OPERATIVE NO HNO ID: [id number] Author: Jenna Garsia Service: Orthopaedic Surgery Author Type: Physician Type: Operative Report Filed: 06/20/2018 1:25 PM Note Text: [place] [id number] [place] OPERATIVE REPORT NAME: Carroll Fuentes [facility] #: [id number] DATE: 06/20/2018 (11:18am-1:17pm) AGE: 58 SURGEON 1: Jenna Garsia M.D. SILVER SOLDERER: 1. Augie Coates M.D. 2. Kusum Prasad M.D. 3. Mundo Pablo OPERATION: Right total shoulder arthroplasty, biceps tenodesis. ANESTHESIA: General anesthesia with regional interscalene nerve block for postoperative pain control. PREOPERATIVE DIAGNOSIS: Right shoulder primary glenohumeral osteoarthritis. POSTOPERATIVE DIAGNOSIS: Right shoulder primary glenohumeral osteoarthritis, biceps tendinopathy. OPERATIVE INDICATIONS: The patient is a 58 year oldoom-cilt-xgw right-hand dominant white female who has a [...] rotator interval stitch was then passed in ueewbt-ct-yatcd fashion with a #2 Ticron suture and tied down to close the lateral rotator interval and set the osteotomy superiorly. The two #2 Fiberwire sutures coming out of the bicipital groove were then sequentially passed in a hnhiow-fj-omgsv fashion medial to the horizontal mattress and [...] none COMPLICATIONS: none apparent Jenna Garsia M.D. [facility] PT EDon 06-20-2018 PT ED HNO ID: [id number] Author: Cindy ValenciaRn) FLETCHER Griffin Service: (none) [...] In Department: [facility] SURGICAL [facility] THERAPY NTon 06-20-2018 THERAPY NT HNO ID: [id number] Author: Abi ValenciaOtTyesha Phillips Service: Occupational Therapy Author Type: Occupational Therapist Type: Therapy (PT/OT/Speech/Resp) Filed: 06/20/2018 4:59 PM Note Text: Occupational Therapy Evaluation SERVICE DATE: 06/20/2018 SERVICE TIME: 1550 to 1640 ROOM: [address] Recommended Discharge Disposition: Home Anticipated Discharge [...] daily living (ADL) Interventions Provided: Evaluation;Therapeutic Exercise (76173);Self Retirement Management (68857) $ Evaluation-Low (58147) Billed Units: 1 unit Therapeutic Exercise (14303) Treatment Minutes: 10 1 unit Skilled Intervention(s): Education in Self Retirement Management (13971) Treatment Minutes: 28 2 units Skilled Intervention(s): [...] Environment Patient Lives With: Spouse Assistance Available: daytime caregiver Number Of Stairs To Bed/Bath: 0 Equipment [...] DATE: June 20, 2018 TIME: 4:54 PM [facility] XR SHOULDER 2V AP/TRUE AP [...] on Jun 20 2018 2:04PM EST [id number] [facility] NURSING PROGon 06-09-2018 Protein mass conc HNO ID: [id number] Author: Ivana Heller RN Service: Nursing Author Type: Registered Nurse Type: [...] 2018 11:10 AM Addendum 06/15/18 EKG IN [facility] FINAL Ivana Heller RN June 15, 2018 4:39 PM [facility] Type and SCR (30D)on 019 ABO/RH(D) Positive Normal [facility] HOSPon 04-28-2018 HOSP Patient:Adalberto Fuentes MRN: Height:5' 2 (1.575 m) Weight:186 lb (84.369 kg) Outpatient Medications as of 06/20/18: calcium phosphate dibas/vit D3 (VITAMIN D, WITH CALCIUM, ORAL) docusate sodium (COLACE) 100 mg capsule aspirin, enteric coated (ECOTRIN LOW STRENGTH) 81 mg EC tablet oxyCODONE-acetaminophe n (PERCOCET) 5-325 mg tablet rizatriptan (MAXALT PRE WAVE ASSEMBLER) 10 mg disintegrating tablet mupirocin (BACTROBAN) 2 [...] 46.0 36.0 Progress Notes (RADIO CT SCAN [facility]): RT Lillian, Tech 06/07/2018 10:04 [...] RT Lillian June 07, 2018 9:54 AM [facility] Vital Signs Date Time Vital Sign Value Performing Clinician Facility 01-23-2025 11:48-0400 Body height 154.94 cm [email or web address] DO Work Phone: [facility] 01-23-2025 11:48-0400 Body mass index (BMI) [Ratio] 31.8 kg/m2 Robert Ball DO Work Phone: [facility] 01-23-2025 11:48-0400 Body weight 76.37 kg Robert Ball DO Work Phone: [facility] 01-23-2025 11:48-0400 Diastolic blood pressure 76 mm[Hg] Robert Ball DO Work Phone: [facility] 01-23-2025 11:48-0400 Heart rate 68 /min Robert Ball DO Work Phone: [facility] 01-23-2025 11:48-0400 Respiratory rate 12 /min Robert Ball DO Work Phone: [facility] 01-23-2025 11:48-0400 Systolic blood pressure 120 mm[Hg] Robert Ball DO Work Phone: [facility] 11-28-2024 13:37-0400 Body height 154.94 cm Robert Ball DO Work Phone: [facility] 11-28-2024 13:37-0400 Body mass index (BMI) [Ratio] 31.8 kg/m2 Robert Ball DO Work Phone: [facility] 11-28-2024 13:37-0400 Body weight 76.43 kg Robert Ball DO Work Phone: [facility] 11-28-2024 13:37-0400 Diastolic blood pressure 72 mm[Hg] Robert Ball DO Work Phone: [facility] 11-28-2024 13:37-0400 Heart rate 77 /min Robert Ball DO Work Phone: [facility] 11-28-2024 13:37-0400 Respiratory rate 12 /min Robert Ball DO Work Phone: [facility] 11-28-2024 13:37-0400 Systolic blood pressure 107 mm[Hg] Robert Ball DO Work Phone: [facility] 10-11-2024 10:42-0400 Body height 154.94 cm Robert Ball DO Work Phone: [facility] 10-11-2024 10:42-0400 Body mass index (BMI) [Ratio] 31.8 kg/m2 Robert Ball DO Work Phone: [facility] 10-11-2024 10:42-0400 Body weight 76.31 kg Robert Ball DO Work Phone: [facility] 10-11-2024 10:42-0400 Diastolic blood pressure 69 mm[Hg] Robert Ball DO Work Phone: [facility] 10-11-2024 10:42-0400 Heart rate 66 /min Robert Ball DO Work Phone: [facility] 10-11-2024 10:42-0400 Respiratory rate 12 /min Robert Ball DO Work Phone: [facility] 10-11-2024 10:42-0400 Systolic blood pressure 103 mm[Hg] Robert Ball DO Work Phone: [facility] 09-12-2024 15:22-0400 Body height 154.94 cm Robert Ball DO Work Phone: [facility] 09-12-2024 15:22-0400 Body mass index (BMI) [Ratio] 32.3 kg/m2 Robert Ball DO Work Phone: [facility] 09-12-2024 15:22-0400 Body weight 77.79 kg Robert Ball DO Work Phone: [facility] 09-12-2024 15:22-0400 Diastolic blood pressure 79 mm[Hg] Robert Ball DO Work Phone: [facility] 09-12-2024 15:22-0400 Heart rate 69 /min Robert Ball DO Work Phone: [facility] 09-12-2024 15:22-0400 Respiratory rate 12 /min Robetr Ball DO Work Phone: [facility] 09-12-2024 15:22-0400 Systolic blood pressure 133 mm[Hg] Robert Ball DO Work Phone: [facility] 07-25-2024 09:00-0400 Diastolic blood pressure 79 mm[Hg] [facility] 07-25-2024 09:00-0400 Heart rate 66 /min [facility] 07-25-2024 09:00-0400 Respiratory rate 12 /min [facility] 07-25-2024 09:00-0400 Systolic blood pressure 161 mm[Hg] [facility] 07-18-2024 10:47-0400 Body height 154.[address] [facility] 07-18-2024 10:47-0400 Body mass index (BMI) [Ratio] 32.8 kg/m2 [facility] 07-18-2024 10:47-0400 Body weight 78.[address] [facility] 07-18-2024 10:47-0400 Diastolic blood pressure 74 mm[Hg] [facility] 07-18-2024 10:47-0400 Heart rate 68 /min [facility] 07-18-2024 10:47-0400 Respiratory rate 12 /min [facility] 07-18-2024 10:47-0400 Systolic blood pressure 134 mm[Hg] [facility] 07-13-2024 10:11-0400 Body height 154.[address] [facility] 07-13-2024 10:11-0400 Body mass index (BMI) [Ratio] 32.9 kg/m2 [facility] 07-13-2024 10:11-0400 Body weight 79.[address] [facility] 07-13-2024 10:11-0400 Diastolic blood pressure 77 mm[Hg] [facility] 07-13-2024 10:11-0400 Heart rate 65 /min [facility] 07-13-2024 10:11-0400 Respiratory rate 12 /min [facility] 07-13-2024 10:11-0400 Systolic blood pressure 117 mm[Hg] [facility] 07-11-2024 08:30-0400 Body temperature 98.6 [degF] Jose Sharif MD Work Phone: [facility] 07-11-2024 08:30-0400 Diastolic blood pressure 62 mm[Hg] Jose Sharif MD Work Phone: [facility] 07-11-2024 08:30-0400 Heart rate 88 /min Jose Sharif MD Work Phone: [facility] 07-11-2024 08:30-0400 Respiratory rate 16 /min Jose Sharif MD Work Phone: [facility] 07-11-2024 08:30-0400 SaO2% (BldA) [Mass fraction] 98 % Jose Sharif MD Work Phone: [facility] 07-11-2024 08:30-0400 Systolic blood pressure 117 mm[Hg] [facility] 07-06-2024 20:16-0400 Body height 154.9 cm Jose Shairf MD [facility] 07-06-2024 20:16-0400 Body mass index (BMI) [Ratio] 33.07 kg/m2 Jose Sharif MD Work Phone: [facility] 07-06-2024 20:16-0400 Body weight 79.38 kg Jose Sharif MD Work Phone: [facility] 07-04-2024 15:04-0400 Body height 154.[address] [facility] 07-04-2024 15:04-0400 Body mass index (BMI) [Ratio] 32.9 kg/m2 [facility] 07-04-2024 15:04-0400 Body weight 79.[address] [facility] 07-04-2024 15:04-0400 Diastolic blood pressure 79 mm[Hg] [facility] 07-04-2024 15:04-0400 Heart rate 69 /min [facility] 07-04-2024 15:04-0400 Respiratory rate 12 /min [facility] 07-04-2024 15:04-0400 Systolic blood pressure 177 mm[Hg] [facility] 06-25-2024 10:11-0500 Body temperature 97.3 [degF] [facility] 06-25-2024 10:11-0500 Diastolic blood pressure 76 mm[Hg] [facility] 06-25-2024 10:11-0500 Heart rate 54 /min [facility] 06-25-2024 10:11-0500 Respiratory rate 16 /min [facility] 06-25-2024 10:11-0500 SaO2% (BldA) [Mass fraction] 98 % [facility] 06-25-2024 10:11-0500 Systolic blood pressure 119 mm[Hg] [facility] 06-25-2024 10:07-0500 Body height 154.[address] [facility] 06-25-2024 10:07-0500 Body mass index (BMI) [Ratio] 32.9 kg/m2 [facility] 06-25-2024 10:07-0500 Body weight 79.[address] [facility] 02-24-2024 14:13-0400 Body height 154.[address] [facility] 02-24-2024 14:13-0400 Body mass index (BMI) [Ratio] 33.1 kg/m2 [facility] 02-24-2024 14:13-0400 Body temperature 96 [degF] [facility] 02-24-2024 14:13-0400 Body weight 79.[address] [facility] 02-24-2024 14:13-0400 Diastolic blood pressure 84 mm[Hg] [facility] 02-24-2024 14:13-0400 Heart rate 66 /min [facility] 02-24-2024 14:13-0400 Systolic blood pressure 159 mm[Hg] [facility] 12-20-2023 15:35-0400 Body height 154.[address] [facility] 12-20-2023 15:35-0400 Body mass index (BMI) [Ratio] 33.8 kg/m2 [facility] 12-20-2023 15:35-0400 Body weight 81.[address] [facility] 12-20-2023 15:35-0400 Diastolic blood pressure 80 mm[Hg] [facility] 12-20-2023 15:35-0400 Heart rate 78 /min [facility] 12-20-2023 15:35-0400 Respiratory rate 12 /min [facility] 12-20-2023 15:35-0400 Systolic blood pressure 134 mm[Hg] [facility] 04-29-2023 09:00-0500 Body height 154.94 cm Robert Ball Other [facility] 04-29-2023 09:00-0500 Body mass index (BMI) [Ratio] 33.14 kg/m2 Robert Ball Other [facility] 04-29-2023 09:00-0500 Body weight 79.56 kg Robert Ball Other [facility] Other 04-29-2023 09:00-0500 Diastolic blood pressure 89 mm[Hg] Robert Ball Other [facility] Other 04-29-2023 09:00-0500 Respiratory rate 12 /min Robert Ball Other [facility] Other 04-29-2023 09:00-0500 Systolic blood pressure 155 mm[Hg] Robert Ball Other [facility] 12-20-2022 13:45-0400 Body height 154.94 cm Robert Ball Other [facility] Other 12-20-2022 13:45-0400 Body mass index (BMI) [Ratio] 34.12 kg/m2 Robert Ball Other [facility] Other 12-20-2022 13:45-0400 Body weight 81.92 kg Robert Ball Other [facility] Other 12-20-2022 13:45-0400 Diastolic blood pressure 96 mm[Hg] Robert Ball Other [facility] 12-20-2022 13:45-0400 Respiratory rate 12 /min Robert Ball Other [facility] Other 12-20-2022 13:45-0400 Systolic blood pressure 179 mm[Hg] Robert Ball Other [facility] 08-04-2022 09:45-0400 Body height 154.94 cm Robert Ball Other [facility] 08-04-2022 09:45-0400 Body mass index (BMI) [Ratio] 33.33 kg/m2 Robert Villasenor Other [facility] 08-04-2022 09:45-0400 Body weight 80.02 kg Robert Villasenor Other [facility] Other 08-04-2022 09:45-0400 Diastolic blood pressure 77 mm[Hg] Robert Villasenor Other [facility] Other 08-04-2022 09:45-0400 Respiratory rate 12 /min Robert Villasenor Other [facility] Other 08-04-2022 09:45-0400 Systolic blood pressure 128 mm[Hg] Robert Villasenor Other [facility] Other Encounters Encounter Date Encounter Type Care Provider Facility Start: 01-23-2025 End: 01-23-2025 ambulatory Robert Villasenor DO Work Phone: [facility] Work Phone: Start: 01-23-2025 End: 01-23-2025 Patient encounter procedure Robert Villasenor DO [facility] Work Phone: Start: 11-28-2024 End: 11-28-2024 ambulatory Robert Villasenor DO Work Phone: [facility] Work Phone: Start: 11-28-2024 End: 11-28-2024 Patient encounter procedure Robert Villasenor DO [facility] Work Phone: Start: 11-23-2024 End: 11-25-2024 ambulatory [facility] Start: 11-23-2024 End: 11-25-2024 Subsequent hospital visit by physician Tomás Helton DO Work Phone: [facility] Comment on above: Osteoarthritis of ri ght knee, unspecified osteoarthritis type Start: 10-13-2024 Non-patient / Non-visit [facility] [facility] Work Phone: Start: 10-11-2024 End: 10-11-2024 Patient encounter procedure Robert Villasenor [facility] Work Phone: Start: 10-11-2024 End: 10-11-2024 Patient encounter status [facility] Start: 09-21-2024 Non-patient / Non-visit [facility] [employer] Work Phone: Start: 09-14-2024 [facility] / [facility] Work Phone: Start: 09-12-2024 End: 09-12-2024 Patient encounter procedure Robert Villasenor [facility] Work Phone: Start: 07-25-2024 End: 07-25-2024 ambulatory [facility] Work Phone: Start: 07-25-2024 End: 07-25-2024 Patient encounter procedure [facility] Physician [facility] Work Phone: Start: 07-18-2024 End: 07-18-2024 ambulatory [facility] Work Phone: Start: 07-18-2024 End: 07-18-2024 Patient encounter procedure [facility] Physician [facility] Work Phone: Start: 07-18-2024 Non-patient / Non-visit [facility] Work Phone: Start: 07-13-2024 End: 07-13-2024 ambulatory [facility] Work Phone: Start: 07-13-2024 End: 07-13-2024 Patient encounter procedure [facility] Physician [facility] Work Phone: Start: 07-12-2024 Non-patient / Non-visit [facility] Physician [facility] Work Phone: Start: 07-11-2024 Non-patient / Non-visit [facility] Physician [facility] Work Phone: Start: 07-06-2024 End: 07-11-2024 Evaluation and management of inpatient Jose Sharif MD Work Phone: [facility] Start: 07-04-2024 End: 07-04-2024 ambulatory [facility] Work Phone: Start: 07-04-2024 End: 07-04-2024 Encounter for other preprocedural examination [facility] Start: 07-04-2024 End: 07-04-2024 Patient encounter procedure [facility] Work Phone: Start: 06-27-2024 Non-patient / Non-visit [facility] Work Phone: Start: 06-25-2024 End: 06-25-2024 ambulatory [facility] Work Phone: Start: 06-25-2024 End: 06-25-2024 Patient encounter procedure [facility] Work Phone: Start: 06-21-2024 ambulatory Raisa New KAUFFMANES [facility] Start: 06-01-2024 Non-patient / Non-visit [facility] Physician [facility] Work Phone: Start: 05-31-2024 Non-patient / Non-visit [facility] Physician [facility] Work Phone: Start: 04-09-2024 End: 04-09-2024 ambulatory Miriam Barron MD Facility: [facility] Start: 02-24-2024 End: 02-24-2024 ambulatory [facility] Work Phone: Start: 02-24-2024 End: 02-24-2024 Patient encounter procedure [facility] Physician [facility] Work Phone: Start: 02-22-2024 Non-patient / Non-visit [facility] Physician [facility] Work Phone: Start: 12-27-2023 Non-patient / Non-visit [facility] Work Phone: Start: 12-20-2023 Patient encounter status [facility] Start: 12-20-2023 End: 12-20-2023 ambulatory [facility] Work Phone: Start: 12-20-2023 End: 12-20-2023 Patient encounter procedure [facility] Work [...] 06-01-2023 End: 06-01-2023 ambulatory Robert Villasenor Other [facility] Other Start: 06-01-2023 Telephone encounter Robert Villasenor [facility] Start: 05-23-2023 End: 05-23-2023 ambulatory Miriam Barron MD Facility: [facility] Start: 05-13-2023 End: 05-13-2023 ambulatory Robert Villasenor Other [facility] Other Start: 05-13-2023 Telephone encounter Robert Ball [facility] Start: 05-09-2023 End: 05-09-2023 ambulatory Robert Ball Other [facility] Other Start: 05-09-2023 Telephone encounter Robert Ball [facility] Start: 05-04-2023 End: 05-04-2023 ambulatory Robert Ball Other [facility] Other Start: 05-04-2023 Telephone encounter Robert Ball [facility] Start: 05-02-2023 End: 05-02-2023 ambulatory Robert Ball Other [facility] Other Start: 05-02-2023 Telephone encounter Robert Ball [facility] Start: 04-29-2023 End: 04-29-2023 ambulatory Robert Ball Other [facility] Other Start: 04-29-2023 Office outpatient vi sit 15 minutes Robert Ball [facility] Start: 04-04-2023 End: 04-04-2023 ambulatory Robert Ball Other [facility] Other Start: 04-04-2023 Telephone encounter Robert Ball [facility] Start: 01-24-2023 End: 01-24-2023 ambulatory Robert Ball Other [facility] Other Start: 01-24-2023 Telephone encounter Robert Ball [facility] Start: 12-23-2022 End: 12-23-2022 ambulatory Robert Ball Other [facility] Other Start: 12-23-2022 Telephone encounter Robert Ball [facility] Start: 12-20-2022 End: 12-20-2022 ambulatory Robert Ball Other [facility] Other Start: 12-20-2022 Office outpatient vi sit 15 minutes Robert Ball [facility] Start: 12-17-2022 End: 12-17-2022 ambulatory Robert Villasenor Other [facility] Other Start: 12-17-2022 Telephone encounter Robert Hamilton [facility] Start: 11-08-2022 End: 11-08-2022 ambulatory Robert Villasenor Other [facility] Other Start: 11-08-2022 Telephone encounter Robert Hamilton [facility] Start: 10-22-2022 End: 10-22-2022 ambulatory Robert Villasenor Other [facility] Other Start: 10-22-2022 Telephone encounter Robert Villasenor [facility] Start: 10-13-2022 End: 10-13-2022 ambulatory Robert Villasenor Other [facility] Other Start: 10-13-2022 Telephone encounter Robert Vilalsenor [facility] Start: 09-27-2022 End: 09-27-2022 ambulatory Robert Villasenor Other [facility] Other Start: 09-27-2022 Telephone encounter Robert Villasenor [facility] Start: 08-23-2022 End: 08-24-[address] RISHI PARKER Facility:[facility] Start: 08-04-2022 End: 08-04-2022 ambulatory Robert Villasenor Other [facility] Other Start: 08-04-2022 Office outpatient vi sit 25 minutes Robert Villasenor [facility] Start: 04-03-2022 Encounter for genera l adult medical examination without abnormal findings DR ROBERT VILLASENOR [facility] Start: 03-30-2022 End: 03-31-2022 ambulatory [...] End: 06-20-2018 Evaluation and management of inpatient [facility] Procedures Date Procedure Procedure Detail Performing [...] 60 yrs+ (1 - 1-dose 75+ series) [facility] Start: 07-11-2025 GFR test (Diabetes, CKD 3-4, OR last GFR 15-59) GFR test (Diabetes, CKD 3-4, OR last GFR 15-59) [facility] Start: 11-23-2024 Influenza vaccination Flu vaccine (# 1) [facility] Start: 04-25-2024 Annual Wellness Visi t (Medicare Advantage) Annual Wellness Visit (Medicare Advantage) [facility] Start: 12-25-2023 COVID-19 Vaccine ( season) COVID-19 Vaccine ( season) [facility] Start: 2014 Screening for osteoporosis DEXA (modify frequency per FRAX score) [facility] Start: 2009 Pneumococcal 50+ yea rs Vaccine (1 of 1 - PCV) Pneumococcal 50+ years Vaccine (1 of 1 - PCV) [facility] Start: 2009 Shingles vaccine (1 of 2) Shingles vaccine (1 of 2) [facility] Start: 2004 Screening for malign ant neoplasm of colon [facility] Start: 1999 Screening for malign ant neoplasm of breast Breast cancer screen [facility] Start: 1994 Diabetes screen Diabetes screen [facility] Start: 1989 Screening for malign ant neoplasm of cervix [facility] Start: 1980 Screening for malign ant neoplasm of cervix Pap smear [facility] Start: 1978 DTaP/Tdap/Td vaccine (1 - Tdap) DTaP/Tdap/Td vaccine (1 - Tdap) [facility] Start: 1978 Pneumococcal 50+ yea rs Vaccine (1 of 2 - PCV) Pneumococcal 50+ years Vaccine (1 of 2 - PCV) [facility] Start: 1977 Glaucoma screening Diabetic retinal exam [facility] Start: 1977 Hepatitis C screening Hepatitis C sc reen [facility] Start: 1977 Urine screening for protein Diabetic Alb to Cr ratio (uACR) test [facility] Start: 1974 HIV screening HIV screen [facility] Start: 1971 Depression Screen Depression Screen [facility] Start: 1969 Diabetic foot examination Diabetic foot exam [facility] Start: 1969 Hemoglobin A1c measurement A1C test (Diabetic or Prediabetic) [facility] Start: 1969 Lipid panel Lipids [facility] [employer] End: 07-15-2024 Basic metabolic 2000 panel - Serum or Plasma Basic Metabolic Panel Lab Routine Daily for 1 Weeks starting 07/09/2024 until 07/15/2024, 3 completed [facility] Comment on above: Daily for [address] arting 07/09/2024 until 07/15/2024, 3 completed Comprehensive metabo lic 2000 panel - Serum or Plasma [facility] Comprehensive metabo lic 1999 panel - Serum or Plasma [facility] Comprehensive metabo lic 1999 panel - Serum or Plasma [facility] Glucose [Mass/volume ] in Serum or Plasma POCT Glucose Point of Care Testing STAT As Needed until discontinued starting 07/06/2024 EX[facility]IS Comment on above: As Needed until disc ontinued starting 07/06/2024 Glucose [Mass/volume ] in Serum or Plasma POCT glucose Point of Care Testing Routine 4X Daily (AC & HS) until discontinued starting 07/07/2024, 18 completed [facility] Comment on above: 4X Daily (AC & HS) u ntil discontinued starting 07/07/2024, 18 completed Glucose [Mass/volume ] in Serum or Plasma POCT Glucose Point of Care Testing STAT As Needed until discontinued starting 07/10/2024 EXENDIS Comment on above: As Needed until disc ontinued starting 07/10/2024 End: 07-15-2024 Hemoglobin and Hematocrit Hemoglobin and Hematocrit Lab Routine Daily for 1 Weeks starting 07/09/2024 until 07/15/2024, 3 completed [facility] Comment on above: Daily for [address] arting 07/09/2024 until 07/15/2024, 3 completed MG Breast - bilatera l [facility] MG Breast - bilatera l [facility] End: 11-23-2024 MR Knee - right WO contrast [facility] Comment on above: 1 Occurrences starti ng 11/23/2024 until 11/23/2024 MR Knee - right WO contrast [facility] Oxygen therapy [[facility]] Initiate Oxygen Therapy Protocol Respiratory Care Routine As Needed until discontinued starting 07/08/2024 EXENDIS Comment on above: As Needed until disc ontinued starting 07/08/2024 Spirometry panel Incentive jesse metry Respiratory Care Routine Every 2hr while awake until discontinued starting 07/06/2024 EXENDIS Work Phone: Comment on above: Every 2hr while awak e until discontinued starting 07/06/2024 Spirometry panel Incentive jesse metry Respiratory Care Routine Every 2hr while awake until discontinued starting 07/08/2024 EXENDIS Comment on above: Every 2hr while awak e until discontinued starting 07/08/2024 [facility] US Breast - left limited [facility] Payers Date Payer Category Payer Unknown [id number] 2023 Unknown 2022 Blue [employer] Blue [employer] [id number] 2019 Unknown [id number] 2015 Unknown [id number] 1959 Self-pay [id number] 1959 Unknown [id number] [id number] 93 1959 Unknown [id number] 2.16.840.1.252065.3.579.2.5 93 1959 Unknown [id number] 2.16.840.1.875295.3.579.2.5 93 1959 Unknown [id number] 2.16.840.1.898430.3.579.2.5 93 1959 Unknown [id number] 2.16.840.1.720870.3.579.2.5 93 1959 Unknown [id number] 2.16.840.1.483264.3.579.2.5 93 1959 Unknown [id number] 2.16.840.1.568550.3.579.2.1 96 1959 Unknown [id number] 2.16.840.1.843248.3.579.2.1 96 1959 Unknown [id number] 2.16.840.1.754664.3.579.2.1 96 1959 Unknown [id number] 2.16.840.1.603724.3.579.2.1 96 1959 Unknown [id number] 2.16.840.1.167918.3.579.2.1 96 1959 Unknown [id number] 2.16.840.1.118849.3.579.2.1 96 1959 Unknown [id number] 2.16.840.1.165075.3.579.2.1 96 1959 Unknown [id number] 2.16.840.1.016536.3.579.2.7 27 1959 Unknown [id number] 2.16.840.1.031794.3.579.2.9 3 1959 Unknown [id number] 2.16.840.1.296883.3.579.2.1 Medicare Medicare [id number] Unknown [id number] [id number] 93 Unknown [id number] Unknown [employer] PFFS [id number] Social History Date Type Detail Facility Start: 07-06-2024 Sex Assigned At [facility] Start: 1960 Sex Assigned At Female [facility] Tobacco smoking stat us NHIS Unknown if ever smoked [facility] Work Phone: Start: 06-04-2012 End: 06-25-2024 Sex Female (finding) [facility] Start: 07-06-2024 End: 10-11-2024 Tobacco smoking status NHIS Never smoked tobacco [facility] Start: 07-06-2024 Tobacco use and exposure Smokeless tobacco non-user [facility] Start: 07-09-2024 Alcoholic beverage intake Lifetime non-drinker (finding) [facility] Start: 07-06-2024 History of Social function [employer] Has the electric, Guc[employer] s, oil, or water company threatened to shut off services in your home in past 12Mo No EXENDIS (I/We) worried whekrystal er (my/our) food would run out before (I/we) got money to buy more. Never true EXENDIS In the past 12 month s, has lack of transportation kept you from medical appointments or from getting medications? No EXENDIS Start: 1960 Sex assigned at Not on file EXENDIS Medical Equipment Procedure Code Equipment Code Equipment Original Text Equipment Identifier Dates Screw Spnl L45mm Dia6.5mm Post Thoracolumbosacral Co Chrom - [id number] Start: 07-08-2024 Screw Spnl L40mm Dia6.5mm Post Thoracolumbosacral Co Chrom - [id number] Start: 07-08-2024 Set Scr Spnl L6m m Dia5.5mm Ti Brk Off Svetlana W/ Detach Cdh - [id number] Start: 07-08-2024 Evan Spnl L35mm D ia5.5mm Ant Post Thoracolumbosacral Ti - [id number] Start: 07-08-2024 Clinical Notes 08-04-2022 to 11-28-2024 Note Date & Type Note Facility 11-28-2024 Evaluation note Diagnosis Onset Date Resolution Acute meniscal tear of right knee acute November 28, 2024 1:29pm Central stenosis of spinal canal acute November 28, 2024 1:29pm Lateral cutaneous nerve of thigh syndrome acute November 28, 2024 1:29pm Leg pain acute November 28 1:29pm Breast mass, left acute January 23, 2025 11:33am [facility] Work Phone: 1(431) 296-815205-21-2025 Evaluation note* Diagnosis Onset Date Resolution Status Admit Date Acute blood loss anemia acute M 2024 3:13pm Hypertension acute September 12 3:13pm Knee pain, right acute August 3:13pm Mass of left axilla acute August 242024 3:13pm Prerenal azotemia acute August 3:13pm Type 2 diabetes mellitus wit h hyperglycemia acute September 12, 2024 3:13pm Hypercholesterolemia acute October 11, 2024 10:26am Hypertension acute October 11, 025 10:26am Hypothyroid acute October 11 10:26am Major depression acute September 10:26am STEPHANIE (obstructive sleep apnea) acute October 11, 2024 10:26am Type 2 diabetes mellitus wit h hyperglycemia acute October 11, 2024 10:26am Welcome to Medicare preventi ve visit noneactive October 11, 2024 10:26am [facility] Work Phone: [phone]) 345-243503-19-2025 History of Present illness Narrative* Bhavani Anderson RN - 07/11/2024 11:59 AM EDT Pt discharged to private vehicle with all of her personal belongings via wheelchair by RN. All questions and concerns answered at the time of discharge. * Jose Sharif MD - 07/11/2024 10:15 AM EDT INTERNAL MEDICINE Progress Note 07/11/2024 10:15 AM Subjective: Admit Date: 07/06/2024 PCP: Ball, Robert, DO Interval History: D 3 post L3-5 [...] Rosales, PT - 07/10/2024 10:18 AM EDT [facility] INPATIENT PHYSICAL THERAPY EVALUATION [facility] 7K - 7K-21/021-A Discharge Recommendations: [...] or urinary incontinence. 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 Extract Operator Goals Time Frame for Assisted Goals : NA due to short ELOS Following session, patient left in safe position with all fall risk precautions in place. Pt in bedfollowing session, all needs and call light in reach, alarm on. * America Waters OTA - 07/10/2024 8:30 AM EDT [facility] 7 Occupational Therapy Daily Note Discharge Recommendations: Home with Home Health OT Equipment Recommendations: No Monitor need for LHAE. Time In: 0800 Time Out: 08 Timed Code Treatment Minutes: 28 Minutes Minutes: 28 Date: 07/10/2024 Patient Name: Carroll Fuentes, Gender: female Room: [facility]21/021-A : 1960 (64 y.o.) Referring Practitioner: [...] or urinary incontinence. 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 Patient pleasant and cooperative throughout session. PAIN: 10/02: Vitals: Vitals not assessed per clinical judgement, see nursing flowsheet COGNITION: WFL ADL: Grooming: Modified Independent. Hair care seated in bedside chair Upper Extremity Dressing: Minimal Assistance. Carroll/doff house robe Lower Extremity Dressing: Minimal Assistance. With senior qa tester in order to carroll/doff hospital shorts with verbal/visual cues to complete, demonstrating good understanding. Footwear Management: Supervision, X 1, with verbal cues , and with increased time for completion. Utilized senior qa tester/sock aid in order to doff/carroll B socks [...] demonstrate appropriately throughout session. Functional Outcome Measures: -[facility] Inpatient Daily Activity Raw Score: 19 ASSESSMENT: [...] indep within home environment. Additional Goals?: No Assisted Goals Time Frame for Assisted Goals : No LTGs d/t short estimated [...] Rosales, PT - 07/09/2024 2:49 PM EDT [facility] PHYSICAL THERAPY MISSED TREATMENT NOTE [facility] 7K Date: 07/09/2024 Patient Name: Carroll Fuentes : 1960 (64 y.o.) Gender: female REASON FOR MISSED TREATMENT: Missed Treat. Attempted x3 today. 1st attempt, pt with tech on BSC and then requesting to eat breakfast. 2nd attempt, OT with pt. 3rd attempt, caseworker protective services in room to complete assessment. * Angela Dawkins OT - 07/09/2024 1:44 PM EDT [facility] INPATIENT OCCUPATIONAL THERAPY [facility] 7K EVALUATION Discharge Recommendations: Continue [...] or urinary incontinence. She was evaluated at [facility], she had an MRI of the lumbar [...] from [facility] today. 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 Additional Goals?: No Assisted Goals Time Frame for Extract Operator Goals : No LTGs d/t short estimated length of stay. AM-PAC Inpatient Daily Activity Raw Score: 17 AM-[facility] Inpatient ADL T-Scale Score : 37.26 Following session, patient left in safe position with all fall risk precautions in place. * Irma Villagomez RN - 07/09/2024 10:32 AM EDT Order for back brace and face sheet faxed to [facility]. * Berny Lewis, ETHAN - 07/09/2024 6:57 AM EDT Department of [...] Brown RN - 07/08/2024 6:41 PM EDT 183 pt arrived to pacu, awakens to voice. Respirations unlabored on 2L NC. Sites CDI with [address] VSS. Pt states pain 6/10 at this time, medicated by REPRESENTATIVE GOVERNMENT RELATIONS 1840 pt resting, resp easy. VSS 1850 pt awakens to voice, states pain 5/10 and tolerable. VSS 0 c/o pain 7/10, medicated with 50 mcg fentanyl 1904 no change in pain status, medicated with 50 mcg fentanyl 1910 pt resting, resp easy. VSS 191 pt resting, resp easy. VSS 1924 pt meets criteria for discharge from pacu at this time. Pt transported to [facility] in stable condition * Kusum Conte RN [...] Jose Sharif MD, MD * Kimberlyn Chapman Jany - 07/07/2024 2:02 PM EDT Spiritual Health History and Assessment/Progress Note [facility] (P) Initial Encounter, , , Name: Carroll Fuentes Age: 64 y.o. Sex: female Language: Kuwaiti Anglican: Methodist Intractable back pain Date: 07/07/2024 Total Time Calculated: (P) 14 min Spiritual Assessment began in [facility] 7K Referral/Consult From: (P) Nurse [...] and how she loves everything about the anabaptist. Patient finds peace and hope in her liliane as a spiritism and desires to have sacrament of the sick by a slot floor person, before her surgery tomorrow afternoon. I told the patient that I will let the spiritual care team know. Offered patient words of encouragement, quoted Scripture, and prayed with the patient, at her request. Patient expressed gratitude. Made patient aware of home care chaplain availability and support. Patient Interventions include: Facilitated expression of thoughts and feelings, Explored spiritual coping/struggle/distress, Affirmed coping skills/support systems, and Provided sacramental/religiousritual Family/Friends Interventions include: No family/friends present Patient Plan of Care: Contact [place] community outreach coordinator for support or sacramental needs Family/Friends Plan of Care: No family/friends present documented in this encounterBon [facility] Discharge instructions* Discharge Instructions* Bhavani [...] All vegetables, especially asparagus, pruitt sprouts, broccoli, Milano sprouts, cabbage, carrots, cauliflower, celery, corn, greens, [...] taking more than one drug. This includes awtk-twt-[id number] medication and herb or dietary supplements. Plan [...] possible side effects documented in this encounterBon [facility] NotePROCEDURE: XR LUMBAR SPINE 1 VW [...] loss of vertebral body height is seen. [id number] NotePROCEDURE: XR LUMBAR SPINE 1 VW CLINICAL [...] Signed by: Sivakumar Betts MD 07/08/24 [facility] Evaluation note* Diagnosis Onset Date Resolution Status [...] medicine non eactive July 04, 2024 2:57pm [facility] Work Phone: 1(795) 564-999503-03-2025 Evaluation note* Diagnosis Onset Date Resolution Status [...] h hyperglycemia acute July 04, 2024 2:57pm [facility] Work Phone: 1(157) 833-534503-03-2025 Evaluation note* Diagnosis Onset Date Resolution Status [...] 2024 9:25am Acute blood loss anemia acute [facility] 2024 10:08am Adverse effect of mixed sedatives acute July 18, 2024 10:08am Central stenosis of spinal canal acu te July 18, 2024 10:08am Herniated intervertebral dis c of lumbar spine acute July 18, 2024 10:08am Hypotension due to hypovolemia acute July 18, 2024 10:08am Type 2 diabetes mellitus wit h hyperglycemia acute July 18, 2024 10:08am Visual hallucinations acute [facility] 2024 10:08am [facility] Work Phone: 1(279) 917-642303-03-2025 Evaluation note* Diagnosis Onset Date Resolution Status Admit Date Cervical spondylosis acute 2024 10:04am Hypertension acute June 25, 10:04am Hx of fusion of cervical spine [...] 2024 2:57pm Acute blood loss anemia acute [facility] 2024 9:25am Central stenosis of spinal canal acu te July 13, 2024 9:25am Herniated intervertebral dis c of lumbar spine acute July 13, 2024 9:25am Hypotension due to hypovolemia acute July 13, 2024 9:25am Type 2 diabetes mellitus wit h hyperglycemia acute July 13, 2024 9:25am Acute blood loss anemia acute [facility] 2024 10:08am Central stenosis of spinal canal acu te July 18, 2024 10:08am Herniated intervertebral dis c of lumbar spine acute July 18, 2024 10:08am Hypotension due to hypovolemia acute July 18, 2024 10:08am Type 2 diabetes mellitus wit h hyperglycemia acute July 18, 2024 10:08am Visual hallucinations acute Jun 10:08am [facility] Work Phone: 1(500) 247-489302-07-2024 Evaluation note* Encounter Date Diagnosis Assessment Notes Treatment Notes Treatment Clinical Notes May, Autoimmune thyroiditis (ICD-10 - E06.3) May, Elevated cholesterol (ICD-10 - E78.00) May, Type 2 diabetes mellitus with hyperglycemia, without long-term current use of insulin (ICD-10 - E11.65) May, Primary hypertension (ICD-10 - I10) May, Intractable chronic migraine without aura and without status migrainosus (ICD-10 - G43.719) [facility] Other 01-15-2024 Evaluation note* Encounter Date Diagnosis Assessment Notes Treatment Notes Treatment Clinical Notes Apr, Intractable chronic migraine without aura and without status migrainosus (ICD-10 - G43.719) [facility] Other 01-08-2024 Evaluation note* Encounter Date Diagnosis Assessment Notes Treatment Notes Treatment Clinical Notes Apr, Intractable chronic migraine without aura and without status migrainosus (ICD-10 - G43.719) [facility] Other 01-05-2024 Evaluation note* Encounter Date Diagnosis [...] Begin Amitriptyline Stop Tizanidine. 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 May want to cut back on [...] Pain in left shoulder (ICD-10 - M25.512) [facility] Other 06-30-2023 Evaluation note* Encounter Date Diagnosis Assessment Notes Treatment Notes Treatment Clinical Notes Sep, Type 2 diabetes mellitus with hyperglycemia, without long-term current use of insulin (ICD-10 - E11.65) [facility] Other 06-05-2023 Evaluation note* Encounter Date Diagnosis Assessment Notes Treatment Notes Treatment Clinical Notes Sep, Candidiasis, intertriginous (ICD-10 - B37.2) [facility] Other 04-12-2023 Evaluation note* Encounter Date Diagnosis [...] use, the patient reduces the risk for NE, CVA, HTN, cardiac dysrhythmias and sudden cardiac [...] Jul, Other specified hypothyroidism (ICD-10 - E03.8) [place] [employer] Other Evaluation noteNo InformationNort [employer] Other Evaluation noteNo assessment information available [facility] Work Phone: Evaluation note* Diagnosis Onset Date Resolution Status Cervical pain acute Cervical spondylosis acute Cervical pain acute Cervical spondylosis acute Painful lumpy right breast errol granados [facility] Work Phone: Evaluation note* Diagnosis Intractable back pain- Primary Backache, unspecified Spinal stenosis of lumbar region with neurogenic claudication Spinal stenosis, lumbar region, with neurogenic claudication Primary hypertension Unspecified essential hypertension Type 2 diabetes mellitus, without long-term current use of insulin ([facility]) documented in this encounter [facility] [place] [facility]* Diagnosis Osteoarthritis of right knee, unspecified osteoarthritis type documented in this encounter [facility] general Narrative - Reported* Type Description [...] LEFT HEART CATHETERIZATION 2016 Hospitalization History [facility] Other [facility] general Narrative - Reported* Type Description Date [...] arthroscopy 10/2022 Hospitalization History SEE [facility] HX [facility] Other Remtmg for referral (narrative)* Reason Evaluation of right knee pain Diagnosis 1 Strain of right knee , subsequent encounter (A86.677X) Referral Organization [facility] bhupinder Referring Provider First Name Robert Referring Provider Last Name Hamilton Referring Provider Specialty Internal Ky dicjuan Referred Provider Rishi Parker Jr Referred Provider Specialty Orthopedic S urgery Referral Priority Routine [facility] Other Reytkq for referral (narrative)* Reason Referral for neck pa in Diagnosis 1 Cervicalgia (M54.2) Diagnosis 2 Cervical spondylosis (M47.812) Referral Organization [facility] [employer] bhupinder Referring Provider First Name Robert Referring Provider Last Name Hamilton Referring Provider Specialty Internal Ky yoni Referred Organization [facility] Referred Address [address], [place],[address] Referred Provider Specialty Pain Medicin e Referral Priority Routine General Notes Patient has hx of ce rvical discectomy and fusion and presented w/ persistent neck pain, which radiated upwards causing a headache. She is being referred for treatment with the pain clinic. Clinical Notes Include MRI [facility] Other Reyfhf for referral (narrative)No reason for referral information availableUniversity [facility] Work Phone: Reason for visit Narrative* Auth/Cert Specialty Diagnoses / Procedures Referred By Jass adams Referred To Contact Diagnoses Intractable back pain large disc herniation Jose Sharif MD [address] [place] [address] Phone: tel: fax: [facility] [place] [address] [place] [address] Referral ID Status Reason Start Date Expiration Date Visits Re quested Visits Authorized [id number] 1 1 [facility] Narrative* Imaging (Routine) - Closed Specialty Diagnoses / Procedures Referred By Jass adams Referred To Contact Radiology Diagnoses Osteoarthritis of right knee, unspecified osteoarthritis type Procedures MRI KNEE RIGHT WO CONTRAST Tomás Helton, DO [address] [place] [address] Phone: tel: fax: Referral ID Status Reason Start Date Expiration Date Visits Re quested Visits Authorized [id number] Closed 11/14/2024 11/14/2025 1 1 [facility] Summary Purpose Family History Relationship Condition Age [...] Documents on File Type Date Recorded Patient Qc Chemist Expl anation ACP-Advance Directive 07/13/2024 10:35 PM Date Activated Date Inactivated Comments 07/06/2024 7:55 PM 07/11/2024 2:07 PM Healthcare Agents on File Name [employer] Agent Relationshi p Communication Babatunde Fuentes [...] Medicare preventive visit Burton e 2024 10:26am Chief Complaint Admit Date R Side Pain November 28, 2024 1:2 9pm 4 month January 23, 2025 11 :33am Reason for Visit Admit Date Acute meniscal tear of right knee November 28, 2024 1:29pm Central stenosis of spinal canal November 28, 2024 1:29pm Lateral cutaneous nerve of thigh syndrom e November 28, 2024 1:29pm Leg pain November 28, 2024 1:2 9pm Breast mass, left January 23, 2025 11 :33am Additional Source Comments INFORMATION SOURCE (unrecogn ized section and content) DATE CREATED AUTHOR 06/20/2018 [facility] DATE CREATED AUTHOR AUTHOR'S ORGANIZ ATION 07/04/2018 [facility] DATE CREATED AUTHOR AUTHOR'S ORGANIZ ATION 09/18/2020 [facility] DATE CREATED AUTHOR AUTHOR'S ORGANIZ ATION 08/27/[address] [facility] DATE CREATED AUTHOR AUTHOR'S ORGANIZ ATION 04/18/2024 [facility] DATE CREATED AUTHOR AUTHOR'S ORGANIZ ATION 06/23/2024 [facility] DATE CREATED AUTHOR AUTHOR'S ORGANIZ ATION 08/10/2024 [facility] DATE CREATED AUTHOR AUTHOR'S ORGANIZ ATION 12/03/2024 Xochitl neumann REASON FOR VISIT (unrecogniz ed section [...] 2024 End: October 11, 2024 Robert Villasenor DO Attending Provider Active Sta rt: October 11, [...] Team Status: Active Member Role Status Hakeem Villasneor DO Primary Care Provide r, Attending Provider Active Start: June 27, 2024 Team Status: Inactive Member Role Status Hakeem Villasenor DO Primary Care Provide r, Attending Provider Active Start: July 04, 2024 End: July 04, 2024 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 Start Date End Date Robert Villasenor DO [address] [place] [id number] PCP - General Internal Medicine 07/06/24 Team [...] July 25, 2024 End: July 25, 2024 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 Start Date End Date Robert Villasenor DO [address] [place] [id number] PCP - General Internal Medicine 07/06/24 Team Status: Inactive Member Role Status Dates Robert Villasenor DO Primary Care Provider Active Start: January 23, 2025 End: January 23, 2025 Robert Villasenor DO Attending Provider Active Sta rt: January 23, 2025 End: January 23, 2025 Goals (unrecognized section and content) Goals may [...] hypoproteinemia 0019 (New Bag - Provider: Chrissy Cuellar, FLETCHER)0118 (Stopped - Provider: Chrissy Cuellar RN) atenolol [...] Discontinued, Do not crush or break., Post-op 075 (Given - Provider: Irma Villagomez [...] mL Sterile Water. Withdraw entire contents., Post-op 104 (Given - Provider: Bijal Zavala RN)754 (Given - Provider: Irma Villagomez RN) citalopram (CELEXA) tablet 20 mg 20 mg, Oral, DAILY, First dose on Tue07/07/24 at 0900, Until Discontinued 754 (Given - Provider: Irma Villagomez RN) 08 (Given - Provider: Bhavani Anderson RN) 0843 [...] RN)2001 (Given - Provider: Sommer Alcala RN) 842 (Given - Provider: Bhavani Anderson RN)2055 (Given - Provider: Chrissy Cuellar, FLETCHER) 08 (Given - Provider: Bhavani Anderson RN)2100 (Due) glipiZIDE (GLUCOTROL) tablet 10 mg 10 [...] Anderson RN - Reason: Order parameters not met)2057 (Given - Provider: Chrissy Cuellar RN) 0713 (Not Given - Provider: Bhavani Anderson [...] since Tue07/10/2024 at 1409 until manually unheld 075 (Given - Provider: Irma Villagomez RN) [...] FLETCHER) 0840 (Not Given - Provider: Bhavani Anderson, FLETCHER - Reason: Patient/family refused) sennosides-docusate sodium (SENOKOT-S) 8.6-50 MG tablet 1 tablet 1 tablet, Oral, 2 TIMES DAILY, First dose on Tue07/08/24 at 2100, Until Discontinued, Post-op 0755 (Given - Provider: Irma Villagomez, FLETCHER)2002 (Given - Provider: Sommer Alcala RN) 0843 (Given - Provider: Bhavani Anderson RN)2055 (Given - Provider: Chrissy Cuellar RN) 0840 (Not Given - Provider: Bhavani Adnerson RN - Reason: Patient/family refused)2100 (Due) sodium [...] after dose. 0755 (Given - Provider: Irma Villagomez, FLETCHER) Continuous Medication Order 07/09/2024 07/10/2024 07/11/2024 0.9 [...] FLETCHER) 0533 (Given - Provider: Sommer Alcala, RN)1702 (Given - Provider: Bhvaani Anderson, FLETCHER) 0843 (Given - Provider: Bhavani [...] for injection by adding 1 mL of core baker-supplied sterile diluent or sterile water for injection [...] RN)0944 (See Alternative - Provider: Bhavani Anderson, FLETCHER)155 (See Alternative - Provider: Bhavani Anderson RN)2055 [...] Alcala RN)0944 (Given - Provider: Bhavani Anderson, FLETCHER)155 (Given - Provider: Bhavani Anderson, FLETCHER)2055 (Given [...] Post-op 06 (Given - Provider: Bijal Zavala RN)110 (See Alternative - Provider: Irma Villagomez RN) [...] IntraVENous, EVERY 2 HOURS PRN, Starting on 07/08/24 at 1950, Until 07/09/24 at 1949, Pain Severe (7-10), If oral and IV narcotics ordered, use oral first and only use IV if oral is ineffective or cannot take oral. Do Not give oral and IV within 1 hour of each other unless specifically ordered., Post-op 0656 (See Alternative - Provider: Bijal Zavala RN)1109 (Given - Provider: Irma Villagomez RN) morphine injection 4 mg(Linked Group 5) 4 mg, IntraVENous, EVERY 2 HOURS PRN, Starting on Tu07/10/24 at 1909, Until Discontinued, Pain Severe (7-10), If oral and IV narcotics ordered, use oral first and only use IV if oral is ineffective or cannot take oral. Do Not give oral and IV within 1 hour of each other unless specifically ordered. 194 (See Alternative - Provider: Chrissy Cuellar RN) [...] Starting on Tue07/06/24 at 194, Until Discontinued, Per Potassium Replacement Protocol, Administer [...] BE BASED ON THE PRIMARY CLINICAL RECORDS. [facility] [employer] [facility]. provides no warranty or guarantee of the accuracy or completeness of information in this document.
[2025-01-28 10:00] VITALS: BP 104/65; PULSE 67; TEMP 36.4; O2SAT 98
[2025-01-28 10:42] VITALS: BP 130/58; PULSE 68; O2SAT 98
[2025-01-28] MEDS: BUPIVACAINE HCL 0.25% PF 25 MG/10 ML VIAL INJ (10:43)
[2025-01-28] MEDS: 0.9 % SODIUM CHLORIDE 10 ML SYRINGE - SALINE FLUSH INJ (10:43)
[2025-01-28] MEDS: DEXAMETHASONE SOD PHOS 10 MG/ML VIAL INJ (10:43)
[2025-01-28] MEDS: IOHEXOL 240 MG/ML - 10 ML VIAL INJ (10:43)
[2025-01-28] MEDS: LIDOCAINE HCL 2% 400 MG/20 ML MDV INJ (10:44)
[2025-01-28 10:45] VITALS: PULSE 69; O2SAT 98
[2025-01-28 10:47] VITALS: BP 139/59
--- NOTE | 2025-01-28 10:47 | W.PM.PROCNOT ---
Date of procedure: 01/28/25 Pre-op diagnosis: Pain due to lumbar stenosis with neurogenic claudication Post-op diagnosis: same as pre-op Procedure: Procedure: Right L3-4, L4-5 transforaminal epidural steroid injection Medications: Bupivacaine 0.25% 2cc, lidocaine 2% 1cc, dexamethasone 10mg The patient was seen and examined in the preoperative holding area.? Informed consent was obtained and placed on the chart.? Patient was brought to the medical procedure unit and placed in the prone position where a timeout was completed verifying the correct patient, procedure site, position, and planned special equipment using sterile aseptic technique.? Under direct fluoroscopic visualization a 25-gauge Quincke tipped spinal needle was advanced to the designated neural foramen where contrast dye was injected to show adequate spread.? The needle was inserted at level right L3-4. There was no evidence of vascular or adverse uptake.? Epidural spread was appreciated.? The above-mentioned injectate was then placed in a 1.5 mL aliquot preceded by negative aspiration.? The needle was removed. The needle was inserted and the procedure repeated at level right L4-5.? The surgery site was covered.? Patient was taken to the postprocedural recovery area and monitored for an appropriate length of time before found suitable for discharge in the accompaniment of a responsible adult. Anesthesia: Local Surgeon: Miriam Barron Pathology: none sent Condition: stable Disposition: no change
== END 2025-01-28 10:53 | disposition home or self-care (01) ==
PROVIDERS: PCP Internal Medicine; Visit Provider Anesthesiology
DX: M48.062 Spinal stenosis, lumbar region with neurogenic claudication (principal); M54.50 Low back pain, unspecified; E11.8 Type 2 diabetes mellitus with unspecified complications; Z79.84 Long term (current) use of oral hypoglycemic drugs
CPT/HCPCS: 36415; 64483; 64484; 82948; J0665; J1100; Q9966

== ENCOUNTER 2025-02-06 09:49 | Outpatient (OUT) | payer OTHER, SELFPAY ==
--- OUTSIDE RECORDS SUMMARY | 2025-01-01 09:40 | XMS_ITS ---
Author Organization [facility] Address [address] [place] [address] Care Team Providers Care Transportation Broker Name Role Phone MICA VILLASENOR DO Primary Care Provider Tomás Cox Unavailable [phone] REASON FOR VISIT right knee MRI Review - [place] / right hip pain Encounters Encounter Location Date Provider Diagnosis [facility] [address] [place] [phone] 01/01/2025 Tomás Helton Plan Of Treatment Next Appt Details Provider Name:Eloise Mitchell [facility], 02/28/2025 09:10:00 AM, [address] [place] [address], [phone], Provider Name:Eloise Mitchell [facility], 03/05/2025 10:30:00 AM, [address] [place] [address], [phone], Provider Name:Eloise Mitchell [facility], 04/11/2025 10:10:00 AM, [address] [place] [address], [phone], Progress Notes * CARROLL FUENTES ADOB:[birth year] (64 yo F)Acc No.[id number]:01/01/2025 Patient: Jany WATSONDevinCARROLL Provider: Jany Helton DO :1960 A ge:64 Y S ex:Female Date:01/01/2025 Address:[address], [place], [place]-[address] Pcp:MICA VILLASENOR DO Subjective: * Chief Complaints: * 1 . right knee MRI Review - [place] / right hip pain. * Medical History: Objective: * Vitals: Assessment: Plan: * Treatment: Forms: * Images: * Electronic signature of Khris Helton DO on 02/06/2025 at 09:53 AM EDT Sign off status: Pending * Provider: Jany Helton DO Date: 0 01/01/2025 Generated for Carlene navarrete/Geena/Cyril on: 09:53 AM EDT
--- OUTSIDE RECORDS SUMMARY | 2025-01-21 09:40 | XMS_ITS ---
Author Organization [facility] Address [address] [place] [address] Care Team Providers Care Cook Larder Name Role Phone MICA VILLASENOR DO Primary Care Provider Tomás Cox Unavailable [phone] REASON FOR VISIT RT KNEE Encounters Encounter Location Date Provider Diagnosis [facility] [facility] [address] [place] [address] 01/21/2025 Tomás Helton Plan Of Treatment Next Appt Details Provider Name:[facility], 02/28/2025 09:10:00 AM, [address] [place] [address], [phone], Provider Name:[facility], 03/05/2025 10:30:00 AM, [address] [place] [address], [phone], Provider Name:[facility], 04/11/2025 10:10:00 AM, [address] [place] [address], [phone], Progress Notes * CARROLL FUENTES ADOB:[birth year] (64 yo F)Acc No.[id number]:01/21/2025 Patient: BENI CARRERORICIA Renea Provider: Jany Helton DO :1960 A ge:64 Y S ex:Female Date:01/21/2025 Address:[address], [facility] Pcp:MICA VILLASENOR DO Subjective: * Chief Complaints: * 1 . RT KNEE. * Medical History: Objective: * Vitals: Assessment: Plan: * Treatment: Forms: * Images: * Electronic signature of Khris Helton DO on 02/06/2025 at 09:51 AM EDT Sign off status: Pending * Provider: Jany Helton DO Date: 0 01/21/2025 Generated for Carlene navarrete/Geena/Cyril on: 1 09:51 AM EDT
--- OUTSIDE RECORDS SUMMARY | 2025-02-06 09:52 | XMS_ITS | Clinical Summary ---
Author Organization [facility] Address [address] [place] [address] Phone Care Team Providers Care Billet Grinder Name Role Phone Blane Buckner MD Primary Care Provider [phone] Social History Tobacco Use Types Packs/Day Years Used Date Smoking Tobacco: Never Assessed Comments Unknown Sex and Gender Information Value Date Recorded Sex Assigned at Not on file Legal Sex Female 4:08 PM EST Gender Identity Not on file Sexual Orientation Not on file Plan of Treatment Not on file Care Teams Billet Grinder Relationship Specialty [place] [id number] [address] PCP - General 07/04/14
--- OUTSIDE RECORDS SUMMARY | 2025-02-06 09:52 | XMS_ITS | CCD ---
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 Operator Name Role Phone JENNA GARSAI Admitting Unavailable JENNA GARSIA Attending Unavailable LISANDRO [...] BALL, DR NINO Primary Care Unavailable WALTERYESSENIA Attending Unavailable WALTER, YESSENIA Consulting Unavailable WALTER, YESSENIA Admitting Unavailable HOY ., DR MAZARIEGOS Attending Unavailable HOY ., DR MAZARIEGOS Consulting Unavailable PRISCILLA ., DR MAZARIEGOS Admitting Unavailable BALL, DR NINO Primary Care Unavailable Raisa PRICE Attending Unavailable Robert Villasenor DO Primary Care Provider KOLE, OLUREMI A Admitting Unavailable KOLE, OLUREMI A Attending Unavailable TERA TRAN Referring Unavailable ROBERT VILLASENOR Primary Care Unavailable ELOISE VELIZ Consulting Unavailable Hamilton STOCKTON Robert Primary Care Provider [phone] Hamilton Robert Attending Provider [phone] HAMILTON ROBERT Primary Care Unavailable TOMÁS HELTON Referring Unavailable TOMÁS HELTON Attending Unavailable Hamilton Robert Primary Care Provider Hamilton Robert Attending Provider [phone] Anderson HENLEY, Miriam Stephenson Attending Unavailable Anderson HENLEY, Miriam Stephenson Attending Unavailable Allergies Allergy Classification Reported Allergen(s) Allergy Type Date of Onset Reaction(s) Facility (3 sources) Contrast media; Translations: [CONTRAST DYE] Propensity to adverse reactions to drug (disorder) 09-30-19 11 [facility] Repository (2 sources) HYDROmorphone; Translations: [HYDROMORPHONE (BULK)] Drug Allergy 08-17-19 17 [facility] Repository (20 sources) Latex; Translations: [LATEX] Propensity to adverse reactions to drug (disorder) 09-30-19 11 Hives [facility] Repository (2 sources) Meperidine; Translations: [MEPERIDINE (PF)] Drug Allergy 09-30-19 11 [facility] (2 sources) Povidone-Iodine; Translations: [POVIDONE-IODINE] Drug Allergy 10-21-19 17 [facility] Repository (2 sources) SUMAtriptan; Translations: [SUMATRIPTAN SUCCINATE] Drug Allergy 09-30-19 11 [facility]ository (2 sources) INFLUENZA VACCINE TRI-SP 09-10; Translations: [INFLUENZA VACCINE TRI-SP 09-10] Propensity to adverse reactions to drug (disorder) 09-30-19 11 [facility] Repository (3 sources) DHE; Translations: [DHE] Propensity to adverse reactions to drug (disorder) 10-24-19 13 [facility] Repository (20 sources) HYDROmorphone Drug Allergy 12-20-19 24 Unknown, Unknown Reaction (20 sources) Iodine; Translations: [iodine] Drug Allergy 10-24-19 13 Unknown, Unknown Reaction [facility] Repository (20 sources) Meperidine Drug Allergy 12-20-19 24 Unknown, Unknown Reaction (20 sources) SUMAtriptan Drug Allergy 12-20-19 24 Hives (20 sources) Fluad Drug allergy 12-20-19 24 Unknown, Unknown Reaction (19 sources) DHEA Drug allergy 07-07-19 25 Anaphylaxis [facility] Other (2 sources) HYDROmorphone; Translations: [Dilaudid] Drug Allergy 10-24-19 13 [facility] Repository (1 source) Meperidine Drug Allergy 10-24-19 13 [facility] Repository (2 sources) Plasmin; Translations: [Imitrex] Drug Allergy 10-24-19 13 [facility] Repository (12 sources) influenza A virus (H1N1) antigen / influenza A virus (H3N2) antigen / influenza B virus antigen Drug Allergy 11-21-19 14 Comment:FLU VACCINE [facility] Other (12 sources) Contraindication to Flu Injection Propensity to adverse reactions 03-07-20 14 Comment:advers e rxn/side effects [facility] Other (3 sources) patient allergy list reviewed by nurse or physicia Propensity to adverse reactions 12-22-19 14 Comment:Done [facility] Other (9 sources) Calcium Drug Allergy 12-20-19 24 Unknown Reaction (9 sources) Calcium Carbonate Drug Allergy 12-20-19 24 Unknown Reaction (9 sources) prasterone (DHEA) Allergy to substance 12-20-19 24 Unknown Reaction (9 sources) Fluad Quadrivalent Allergy to substance 04-29-19 Comment:FLU VACCINE Comment on above: Onset Date: 11/21/19 14 (1 source) Meperidine; Translations: [Demerol HCl] Drug Allergy [facility] Repository (1 source) flu vaccines; Translations: [flu vaccines] Propensity to adverse reactions (disorder) [facility] Repository (2 sources) Iodine Strong Propensity to adverse reactions to drug 07-07-19 [facility] Meperidine Drug Allergy 07-07-19 25 Other (See Comments) [facility] Medications Current Medications Medication Drug Class(es) [...] for injection by adding 1 mL of instrumentation chemist-supplied sterile diluent or sterile water for injection [...] therapy Start: 12-20-2023 take 1 capsule by [facility] once daily Magnesium Aspart,Citrate,Oxide 400 mg magnesium capsule Active 400 MG PO Daily December 20, 2023 12:00am Start: 12-20-2023 take 1 capsule by mo [facility] once daily Magnesium Aspart,Citrate,Oxide 400 [...] MG PO Twice daily with meals 180 August 14, 2024 7:51pm Complies with drug [...] mg tablet Active 20 MG PO Daily August 14, 2024 7:52pm Complies with drug therapy Start: 03-28-2024 End: 08-14-2024 take 1 tablet by mouth once daily Olmesartan 20 mg tablet Discontinued 0 .ROUTE .COMPLEX March 28, 2024 9:29pm August 14, 2024 [...] disintegrating tablet 4 mg polyethylene glycol 3350 [id number] mg powder for oral solution (1 source) [...] every two hours as needed for headache Maxalt-GOLD LAYER 10 MG 1 tablet Orally PRN headache, [...] Every 8 hours as needed for pain December 19, 2024 6:05pm Complies with drug [...] 14, 2024 7:50pm 20 ml albumin human, mcfp 250 mg/ml injection (1 source) Human Serum [...] Start: 07-08-2024 take 10 mg rectal ro wiyot once daily as needed for constipation 10 mg, Rectal, DAILY PRN, Starting on 07/08/24 at 1950, Until Discontinued, Constipation, Second [...] 1.5 MG PO Daily at bedtime 45 30 August 08, 2024 5:30pm August 14, 2024 [...] Post-op docusate sodium 50 mg / sennosides, mcfp 8.6 mg oral tablet (1 source) Start: [...] Active 20 MG PO Daily at bedtime August 14, 2024 7:52pm Complies with drug [...] 20 mL/lumen, Post-op sodium [place] 25828 mg powder for oral suspension (1 source) [...] Isreal Garcia DO 12/01/24 Final result Normal [facility] Basophils Auto (Bld) [#/Vol] Ordered By: Robert Villasenor on 10-13-2024 Basophils (Bld) [#/Vol] 0.0 10 3/uL 0.0-0.1 Basophils/100 WBC Auto (Bld) Ordered By: Robert Villasenor on 10-13-2024 Basophils/100 WBC (Bld) 0.6 % 0.2-2.0 Cholesterol in LDL Calc [Mas s/Vol]Ordered By: Robert Villasenor on 10-13-2024 Cholesterol in LDL [Mass/Vol] 77.0 mg/dL Comment on above: <100 mg/dl [id number] 0-129 mg/dl NEAR OR ABOVE [id number] mg/dl BORDERLINE [id number] mg/dl HIGH>190 mg/dl VERY HIGH Cholesterol in VLDL Calc [Ma ss/Vol]Ordered By: Robert Villasenor on 10-13-2024 Cholesterol in VLDL [Mass/Vol] 30.8 mg/dL Eosinophils/100 WBC Auto (Bl d)Ordered By: Robert Villasenor on 10-13-2024 Eosinophils/100 WBC (Bld) 4.5 % 0.9-7.0 Erythrocyte distribution wid th Auto (RBC) [Ratio]Ordered By: Robert Villasenor on 10-13-2024 Erythrocyte distribution width (RBC) [Ratio] 12.6 % 11.0-15.0 Estimated glomerular filtrat ion rate (GFR) non- AmericanOrdered By: Robert Villasenor on 10-13-2024 GFR/1.73 sq M.predicted among non-blacks MDRD (S/P/Bld) [Vol rate/Area] 50 mL/min/{1.73_m2} Low >=60 mL/min/1.73 m 2 Globulin Calc (S) [Mass/Vol] Ordered By: Robert Villasenor on 10-13-2024 Globulin (S) [Mass/Vol] 3.6 g/dL Hematocrit Auto (Bld) [Volum e fraction]Ordered By: Robert Villasenor on 10-13-2024 Hematocrit (Bld) [Volume fraction] 37.7 % 36.0-48.0 Hemoglobin [Mass/volume] in BloodOrdered By: Robert Villasenor on 10-13-2024 Hemoglobin (Bld) [Mass/Vol] 12.0 g/dL 12.0-16.0 Laboratory - Chemistry and C hemistry - challengeOrdered By: Robert Villasenor on 10-13-2024 Albumin [Mass/Vol] 3.6 g/dL 3.4-5.0 [facility] ALP [Catalytic activity/Vol] 91 U/L 46-116 ALT [Catalytic activity/Vol] 29 U/L 14-59 AST [Catalytic activity/Vol] 23 U/L 15-37 Bilirubin [Mass/Vol] 0.6 mg/dL 0.2-1.0 [facility] Calcium [Mass/Vol] 8.9 mg/dL 8.5-10.1 [facility] Chloride [Moles/Vol] 103 mmol/L 98-107 [facility] Cholesterol [Mass/Vol] 161 mg/dL <=200 [facility] Cholesterol in HDL [Mass/Vol] 54 mg/dL 40-60 Comment on above: > or =60 mg/dl - LOW CARDIOVASCULAR RISK<40 mg/dl - HIGH CARDIOVASCULAR RISK CO2 [Moles/Vol] 26.8 mmol/L 21.0-32.0 [facility] Creatinine [Mass/Vol] 1.09 mg/dL High 0.55-1.02 [facility] GFR/1.73 sq M.predicted MDRD (S/P/Bld) [Vol rate/Area] mL/min/{1.73_m2} >=60 mL/min/1.73 m 2 Glucose [Mass/Vol] 75 mg/dL 74-106 [facility] Potassium [Moles/Vol] 4.3 mmol/L 3.5-5.1 [facility] Protein [Mass/Vol] 7.2 g/dL 6.4-8.2 [facility] Sodium [Moles/Vol] 141 mmol/L 136-145 [facility] Triglyceride [Mass/Vol] 154 mg/dL High <=150 Urea nitrogen [Mass/Vol] 28.0 mg/dL High 7.0-18.0 Urea nitrogen/Creatinine [Mass ratio] 25.7 mg/mg Laboratory - Hematology and Cell countsOrdered By: Roebrt Villasenor on 10-13-2024 Immature granulocytes/100 WBC (Bld) 0.3 % 0.0-0.5 Leukocytes [#/volume] correc chip for nucleated erythrocytes in Blood by Automated counOrdered By: Robert Villasenor on 10-13-2024 WBC corrected for nucl RBC Auto (Bld) [#/Vol] 6.4 10 3/uL 4.0-11.0 Lymphocytes Auto (Bld) [#/Vo l]Ordered By: Robert Villasenor on 10-13-2024 Lymphocytes (Bld) [#/Vol] 2.7 10 3/uL 1.2-3.8 Lymphocytes/100 WBC Auto (Bl d)Ordered By: Robert Villasenor on 10-13-2024 Lymphocytes/100 WBC (Bld) 42.6 % 20.5-60.0 MCH Auto (RBC) [Entitic mass ]Ordered By: Robert Villasenor on 10-13-2024 MCH (RBC) [Entitic mass] 26.1 pg Low 26.7-34.0 MCHC Auto (RBC) [Mass/Vol]Or dered By: Robert Villasenor on 10-13-2024 MCHC (RBC) [Mass/Vol] 31.8 g/dL 29.9-35.2 [facility] MCV Auto (RBC) [Entitic vol] Ordered By: Robert Villasenor on 10-13-2024 MCV (RBC) [Entitic vol] 82.0 fL 81.0-99.0 Microalbumin [Mass/volume] i n UrineOrdered By: Robert Villasenor on 10-13-2024 Albumin DL <= 20 mg/L (U) [Mass/Vol] mg/dL <=30.0 Monocytes Auto (Bld) [#/Vol] Ordered By: Robert Villasenor on 10-13-2024 Monocytes (Bld) [#/Vol] 0.5 10 3/uL 0.3-0.8 Monocytes/100 WBC Auto (Bld) Ordered By: Robert Villasenor on 10-13-2024 Monocytes/100 WBC (Bld) 8.5 % 1.7-12.0 Neutrophils Auto (Bld) [#/Vo l]Ordered By: Robert Villasenor on 10-13-2024 Neutrophils (Bld) [#/Vol] 2.8 10 3/uL 1.4-6.5 Neutrophils/100 WBC Auto (Bl d)Ordered By: Robert Villasenor on 10-13-2024 Neutrophils/100 WBC (Bld) 43.5 % 43.0-75.0 No Panel InformationOrdered By: Robert Villasenor on 10-13-2024 Eosinophils # (Auto) 0.3 10 3/uL 0.0-0.7 [facility] Immature Granulocyte # (Auto) 0.02 10 3/uL 0.00-0.03 Urine Random Creatinine 72.31 mg/dL 20.00-300.0 0 Platelet mean volume Auto (B ld) [Entitic vol]Ordered By: Robert Villasenor on 10-13-2024 Platelet mean volume (Bld) [Entitic vol] 9.8 fL 9.5-13.5 Platelets Auto (Bld) [#/Vol] Ordered By: Robert Villasenor on 10-13-2024 Platelets (Bld) [#/Vol] 227 10 3/uL 150-450 RBC Auto (Bld) [#/Vol]Ordere d By: Robert Villasenor on 10-13-2024 RBC (Bld) [#/Vol] 4.60 10 6/uL 4.20-5.40 [facility] Serum or plasma albumin/glob ulin mass ratioOrdered By: Robert Villasenor on 10-13-2024 Albumin/Globulin [Mass ratio] 1.0 {ratio} Serum or plasma anion gap de terminationOrdered By: Robert Villasenor on 10-13-2024 Anion gap [Moles/Vol] 15.5 mmol/L [facility] Serum or plasma total choles terol/high density lipoprotein (HDL) cholesterol mass ratOrdered By: Robert Villasenor on 10-13-2024 Cholesterol.total/Chol esterol in HDL [Mass ratio] 3.0 {ratio} Comment on above: 3.3 - 4.4 LOW RISK4. 4 - 7.1 AVERAGE RISK7.1 - 11.0 MODERATE RISK>11.0 HIGH RISK Basophils Auto (Bld) [#/Vol] on 09-21-2024 Basophils (Bld) [#/Vol] 0.0 10 3/uL 0.0-0.1 Basophils/100 WBC Auto (Bld) on 09-21-2024 Basophils/100 WBC (Bld) 0.6 % 0.2-2.0 Cholesterol in LDL Calc [Mas s/Vol]on 09-21-2024 Cholesterol in LDL [Mass/Vol] 57.0 mg/dL Comment on above: <100 mg/dl [id number] 0-129 mg/dl NEAR OR ABOVE [id number] mg/dl BORDERLINE [id number] mg/dl HIGH>190 mg/dl VERY HIGH Cholesterol in VLDL Calc [Ma ss/Vol]on 09-21-2024 Cholesterol in VLDL [Mass/Vol] 37.6 mg/dL Eosinophils/100 WBC Auto (Bl d)on 09-21-2024 Eosinophils/100 WBC (Bld) 14.7 % High 0.9-7.0 Erythrocyte distribution wid th Auto (RBC) [Ratio]on 09-21-2024 Erythrocyte distribution width (RBC) [Ratio] 11.9 % 11.0-15.0 Estimated glomerular filtrat ion rate (GFR) non- Americanon 09-21-2024 GFR/1.73 sq M.predicted among non-blacks MDRD (S/P/Bld) [Vol rate/Area] 54 mL/min/{1.73_m2} Low >=60 mL/min/1.73 m 2 Globulin Calc (S) [Mass/Vol] on 09-21-2024 Globulin (S) [Mass/Vol] 3.7 g/dL Hematocrit Auto (Bld) [Volum e fraction]on 09-21-2024 Hematocrit (Bld) [Volume fraction] 35.4 % Low 36.0-48.0 Hemoglobin [Mass/volume] in Bloodon 09-21-2024 Hemoglobin (Bld) [Mass/Vol] 11.0 g/dL Low 12.0-16.0 Laboratory - Chemistry and C hemistry - challengeon 09-21-2024 Albumin [Mass/Vol] 3.2 g/dL Low 3.4-5.0 [facility] ALP [Catalytic activity/Vol] 89 U/L 46-116 ALT [Catalytic activity/Vol] 29 U/L 14-59 AST [Catalytic activity/Vol] 22 U/L 15-37 Bilirubin [Mass/Vol] 0.4 mg/dL 0.2-1.0 [facility] Calcium [Mass/Vol] 9.2 mg/dL 8.5-10.1 [facility] Chloride [Moles/Vol] 105 mmol/L 98-107 [facility] Cholesterol [Mass/Vol] 136 mg/dL <=200 [facility] Cholesterol in HDL [Mass/Vol] 42 mg/dL 40-60 Comment on above: > or =60 mg/dl - LOW CARDIOVASCULAR RISK<40 mg/dl - HIGH CARDIOVASCULAR RISK CO2 [Moles/Vol] 28.3 mmol/L 21.0-32.0 [facility] Creatinine [Mass/Vol] 1.02 mg/dL 0.55-1.02 [facility] GFR/1.73 sq M.predicted MDRD (S/P/Bld) [Vol rate/Area] mL/min/{1.73_m2} >=60 mL/min/1.73 m 2 Glucose [Mass/Vol] 119 mg/dL High 74-106 [facility] Potassium [Moles/Vol] 5.3 mmol/L High 3.5-5.1 [facility] Protein [Mass/Vol] 6.9 g/dL 6.4-8.2 [facility] Sodium [Moles/Vol] 143 mmol/L 136-145 [facility] Triglyceride [Mass/Vol] 188 mg/dL High <=150 TSH Qn 0.633 m[IU]/L 0.358-3.740 Urea nitrogen [Mass/Vol] 31.0 mg/dL High 7.0-18.0 Urea nitrogen/Creatinine [Mass ratio] 30.4 mg/mg Laboratory - Hematology and Cell countson 09-21-2024 Immature granulocytes/100 WBC (Bld) 0.2 % 0.0-0.5 Leukocytes [#/volume] correc chip for nucleated erythrocytes in Blood by Automated counon 09-21-2024 WBC corrected for nucl RBC Auto (Bld) [#/Vol] 5.3 10 3/uL 4.0-11.0 Lymphocytes Auto (Bld) [#/Vo l]on 09-21-2024 Lymphocytes (Bld) [#/Vol] 2.1 10 3/uL 1.2-3.8 Lymphocytes/100 WBC Auto (Bl d)on 09-21-2024 Lymphocytes/100 WBC (Bld) 39.2 % 20.5-60.0 MCH Auto (RBC) [Entitic mass ]on 09-21-2024 MCH (RBC) [Entitic mass] 26.1 pg Low 26.7-34.0 MCHC Auto (RBC) [Mass/Vol]on 09-21-2024 MCHC (RBC) [Mass/Vol] 31.1 g/dL 29.9-35.2 [facility] MCV Auto (RBC) [Entitic vol] on 09-21-2024 MCV (RBC) [Entitic vol] 83.9 fL 81.0-99.0 Monocytes Auto (Bld) [#/Vol] on 09-21-2024 Monocytes (Bld) [#/Vol] 0.4 10 3/uL 0.3-0.8 Monocytes/100 WBC Auto (Bld) on 09-21-2024 Monocytes/100 WBC (Bld) 8.4 % 1.7-12.0 Neutrophils Auto (Bld) [#/Vo l]on 09-21-2024 Neutrophils (Bld) [#/Vol] 1.9 10 3/uL 1.4-6.5 Neutrophils/100 WBC Auto (Bl d)on 09-21-2024 Neutrophils/100 WBC (Bld) 36.9 % Low 43.0-75.0 No Panel Informationon 09-21 Eosinophils # (Auto) 0.8 10 3/uL High 0.0-0.7 [facility] Immature Granulocyte # (Auto) 0.01 10 3/uL 0.00-0.03 Platelet mean volume Auto (B ld) [Entitic vol]on 09-21-2024 Platelet mean volume (Bld) [Entitic vol] 9.9 fL 9.5-13.5 Platelets Auto (Bld) [#/Vol] on 09-21-2024 Platelets (Bld) [#/Vol] 218 10 3/uL 150-450 RBC Auto (Bld) [#/Vol]on RBC (Bld) [#/Vol] 4.22 10 6/uL 4.20-5.40 [facility] Serum or plasma albumin/glob ulin mass ratioon 09-21-2024 Albumin/Globulin [Mass ratio] 0.9 {ratio} Serum or plasma anion gap de terminationon 09-21-2024 Anion gap [Moles/Vol] 15.0 [facility] Serum or plasma total choles terol/high density lipoprotein (HDL) cholesterol mass desiree 09-21-2024 Cholesterol.total/Chol esterol in HDL [Mass ratio] 3.2 {ratio} Comment on above: 3.3 - 4.4 LOW RISK4. 4 - 7.1 AVERAGE RISK7.1 - 11.0 MODERATE RISK>11.0 HIGH RISK Glucose mean value [Mass/vol ume] in Blood Estimated from glycated hemoglobinon 09-14-2024 Average glucose Estimated from glycated hemoglobin (Bld) [Mass/Vol] 146 mg/dL Hemoglobin A1c percentageon 09-14-2024 HbA1c (Bld) [Mass fraction] 6.7 % High 4.5-6.2 Comment on above: ADA RECOMMENDED LIMI T 4.0 - 6.0ADA THERAPEUTIC TARGET < 7.0ACTION SUGGESTED> 7.0 Microalbumin [Mass/volume] i n Urineon 09-14-2024 Albumin DL <= 20 mg/L (U) [Mass/Vol] 3.2 mg/dL <=30.0 No Panel Informationon 09-14 Urine Random Creatinine 260.08 mg/dL 20.00-300.0 0 Urine microalbumin/creatinin e mass ratioon 09-14-2024 Albumin/Creatinine DL <= 20 mg/L (U) [Mass ratio] 12.3 mg/g 0.0-29.9 Comment on above: NO MICROALBUMINURIA 0-29 MG/GCLINICAL MICROALBUMINURIA 30-300 MG/GMACROALBUMINURIA >300 MG/G Basophils Auto (Bld) [#/Vol] on 07-18-2024 Basophils (Bld) [#/Vol] Automated basophil count 0.0-0.1 Basophils/100 WBC Auto (Bld) on 07-18-2024 Basophils/100 WBC (Bld) Automated basophil % 0.2-2.0 Eosinophils/100 WBC Auto (Bl d)on 07-18-2024 Eosinophils/100 WBC (Bld) Automated eosinophil % 0.9-7.0 Erythrocyte distribution wid th Auto (RBC) [Ratio]on 07-18-2024 Erythrocyte distribution width (RBC) [Ratio] Erythrocyte distribution width [Ratio] by Automated count 11.0-15.0 Hematocrit Auto (Bld) [Volum e fraction]on 07-18-2024 Hematocrit (Bld) [Volume fraction] Hematocrit [Volume Fraction] of Blood by Automated count Low 36.0-48.0 Hemoglobin [Mass/volume] in Bloodon 07-18-2024 Hemoglobin (Bld) [Mass/Vol] Hemoglobin [Mass/volume] in Blood Low 12.0-16.0 Laboratory - Hematology and Cell countson 07-18-2024 Immature granulocytes/100 WBC (Bld) 0.6 % High 0.0-0.5 Leukocytes [#/volume] correc chip for nucleated erythrocytes in Blood by Automated counon 07-18-2024 WBC corrected for nucl RBC Auto (Bld) [#/Vol] Leukocytes [#/volume] corrected for nucleated erythrocytes in Blood by Automated coun 4.0-11.0 Lymphocytes Auto (Bld) [#/Vo l]on 07-18-2024 Lymphocytes (Bld) [#/Vol] Lymphocytes [#/volume] in Blood by Automated count 1.2-3.8 Lymphocytes/100 WBC Auto (Bl d)on 07-18-2024 Lymphocytes/100 WBC (Bld) Lymphocytes/100 leukocytes in Blood by Automated count 20.5-60.0 MCH Auto (RBC) [Entitic mass ]on 07-18-2024 MCH (RBC) [Entitic mass] MCH [Entitic mass] by Automated count 26.7-34.0 MCHC Auto (RBC) [Mass/Vol]on 07-18-2024 MCHC (RBC) [Mass/Vol] MCHC [Mass/volume] by Automated count 29.9-35.2 MCV Auto (RBC) [Entitic vol] on 07-18-2024 MCV (RBC) [Entitic vol] MCV [Entitic volume] by Automated count 81.0-99.0 Monocytes Auto (Bld) [#/Vol] on 07-18-2024 Monocytes (Bld) [#/Vol] Automated blood monocyte count 0.3-0.8 Monocytes/100 WBC Auto (Bld) on 07-18-2024 Monocytes/100 WBC (Bld) Automated monocyte % 1.7-12.0 Neutrophils Auto (Bld) [#/Vo l]on 07-18-2024 Neutrophils (Bld) [#/Vol] Neutrophils [#/volume] in Blood by Automated count 1.4-6.5 Neutrophils/100 WBC Auto (Bl d)on 07-18-2024 Neutrophils/100 WBC (Bld) Automated neutrophil % 43.0-75.0 No Panel Informationon 07-18 Eosinophils # (Auto) 0.3 10 3/uL 0.0-0.7 [facility] Immature Granulocyte # (Auto) 0.03 10 3/uL 0.00-0.03 Platelet mean volume Auto (B ld) [Entitic vol]on 07-18-2024 Platelet mean volume (Bld) [Entitic vol] Platelet mean volume [Entitic volume] in Blood by Automated count Low 9.5-13.5 Platelets Auto (Bld) [#/Vol] on 07-18-2024 Platelets (Bld) [#/Vol] Platelets [#/volume] in Blood by Automated count 150-450 RBC Auto (Bld) [#/Vol]on RBC (Bld) [#/Vol] Erythrocytes [#/volume] in Blood by Automated count Low 4.20-5.40 Basophils Auto (Bld) [#/Vol] on 07-12-2024 Basophils (Bld) [#/Vol] Automated basophil count 0.0-0.1 Basophils/100 WBC Auto (Bld) on 07-12-2024 Basophils/100 WBC (Bld) Automated basophil % 0.2-2.0 Eosinophils/100 WBC Auto (Bl d)on 07-12-2024 Eosinophils/100 WBC (Bld) Automated eosinophil % 0.9-7.0 Erythrocyte distribution wid th Auto (RBC) [Ratio]on 07-12-2024 Erythrocyte distribution width (RBC) [Ratio] Erythrocyte distribution width [Ratio] by Automated count 11.0-15.0 Estimated glomerular filtrat ion rate (GFR) non- Americanon 07-12-2024 GFR/1.73 sq M.predicted among non-blacks MDRD (S/P/Bld) [Vol rate/Area] Estimated glomerular filtration rate (GFR) non- Low >=60 mL/min/1.73 m 2 Hematocrit Auto (Bld) [Volum e fraction]on 07-12-2024 Hematocrit (Bld) [Volume fraction] Hematocrit [Volume Fraction] of Blood by Automated count Low 36.0-48.0 Hemoglobin [Mass/volume] in Bloodon 07-12-2024 Hemoglobin (Bld) [Mass/Vol] Hemoglobin [Mass/volume] in Blood Low 12.0-16.0 Laboratory - Chemistry and C hemistry - challengeon 07-12-2024 Calcium [Mass/Vol] 8.6 mg/dL 8.5-10.1 [facility] Chloride [Moles/Vol] 102 mmol/L 98-107 [facility] CO2 [Moles/Vol] 24.7 mmol/L 21.0-32.0 [facility] Creatinine [Mass/Vol] 1.94 mg/dL High 0.55-1.02 [facility] GFR/1.73 sq M.predicted MDRD (S/P/Bld) [Vol rate/Area] 31 mL/min/{1.73_m2} Low >=60 mL/min/1.73 m 2 Glucose [Mass/Vol] 203 mg/dL High 74-106 [facility] Potassium [Moles/Vol] 4.6 mmol/L 3.5-5.1 [facility] Sodium [Moles/Vol] 137 mmol/L 136-145 [facility] Urea nitrogen [Mass/Vol] 24.0 mg/dL High 7.0-18.0 Urea nitrogen/Creatinine [Mass ratio] 12.4 mg/mg Laboratory - Hematology and Cell countson 07-12-2024 Immature granulocytes/100 WBC (Bld) 1.8 % High 0.0-0.5 Leukocytes [#/volume] correc chip for nucleated erythrocytes in Blood by Automated counon 07-12-2024 WBC corrected for nucl RBC Auto (Bld) [#/Vol] Leukocytes [#/volume] corrected for nucleated erythrocytes in Blood by Automated coun 4.0-11.0 Lymphocytes Auto (Bld) [#/Vo l]on 07-12-2024 Lymphocytes (Bld) [#/Vol] Lymphocytes [#/volume] in Blood by Automated count 1.2-3.8 Lymphocytes/100 WBC Auto (Bl d)on 07-12-2024 Lymphocytes/100 WBC (Bld) Lymphocytes/100 leukocytes in Blood by Automated count 20.5-60.0 MCH Auto (RBC) [Entitic mass ]on 07-12-2024 MCH (RBC) [Entitic mass] MCH [Entitic mass] by Automated count 26.7-34.0 MCHC Auto (RBC) [Mass/Vol]on 07-12-2024 MCHC (RBC) [Mass/Vol] MCHC [Mass/volume] by Automated count 29.9-35.2 MCV Auto (RBC) [Entitic vol] on 07-12-2024 MCV (RBC) [Entitic vol] MCV [Entitic volume] by Automated count 81.0-99.0 Monocytes Auto (Bld) [#/Vol] on 07-12-2024 Monocytes (Bld) [#/Vol] Automated blood monocyte count 0.3-0.8 Monocytes/100 WBC Auto (Bld) on 07-12-2024 Monocytes/100 WBC (Bld) Automated monocyte % 1.7-12.0 Neutrophils Auto (Bld) [#/Vo l]on 07-12-2024 Neutrophils (Bld) [#/Vol] Neutrophils [#/volume] in Blood by Automated count 1.4-6.5 Neutrophils/100 WBC Auto (Bl d)on 07-12-2024 Neutrophils/100 WBC (Bld) Automated neutrophil % 43.0-75.0 No Panel Informationon 07-12 Eosinophils # (Auto) 0.2 10 3/uL 0.0-0.7 [facility] Immature Granulocyte # (Auto) 0.13 10 3/uL High 0.00-0.03 Platelet mean volume Auto (B ld) [Entitic vol]on 07-12-2024 Platelet mean volume (Bld) [Entitic vol] Platelet mean volume [Entitic volume] in Blood by Automated count 9.5-13.5 Platelets Auto (Bld) [#/Vol] on 07-12-2024 Platelets (Bld) [#/Vol] Platelets [#/volume] in Blood by Automated count 150-450 RBC Auto (Bld) [#/Vol]on RBC (Bld) [#/Vol] Erythrocytes [#/volume] in Blood by Automated count Low 4.20-5.40 Serum or plasma anion gap de terminationon 07-12-2024 Anion gap [Moles/Vol] Serum or plasma an ion gap determination ANION GAPon 07-11-2024 Anion gap [Moles/Vol] 10.0 mmol/L Normal 8.0-16.0 [facility] Comment on above: Result Comment: ANIO N GAP = Sodium -(Chloride + CO2) Performed By: #### P OCGL #### [facility] [address] [place] [address] Anion Gapon 07-11-2024 Anion gap [Moles/Vol] 10 mmol/L 8.0 - 16.0 meq/L [facility] Comment on above: ANION GAP = Sodium - (Chloride + CO2) Performed at [facility] [address] [place] [address] BASIC METABOL PANELon 2024 Calcium [Mass/Vol] 8.9 mg/dL Normal 8.8-10.2 [facility] Comment on above: Performed By: #### P OCGL #### [facility] [address] [place] [address] CO2 [Moles/Vol] 22 mmol/L Normal 22-29 [facility] Comment on above: Performed By: #### P OCGL #### [facility] [address] [place] [address] Creatinine [Mass/Vol] 1.0 mg/dL High 0.5-0.9 [facility] Comment on above: Performed By: #### P OCGL #### [facility] [address] [place] [address] Glucose [Mass/Vol] 166 mg/dL High 74-109 [facility] Comment on above: Performed By: #### P OCGL #### [facility] [address] [place] [address] Urea nitrogen [Mass/Vol] 16 mg/dL Normal 8-23 [facility] Comment on above: Performed By: #### P OCGL #### [facility] [address] [address] Chloride [Moles/Vol] 103 mmol/L Normal 98-111 [facility] Comment on above: Performed By: #### P OCGL #### [facility] [address] [address] Potassium [Moles/Vol] 4.7 mmol/L Normal 3.5-5.2 [facility] Comment on above: Result Comment: Low level specimen hemolysis is present as indicated by the interference index on the Yamilet analyzer. ??The reported K+ level may be falsely increased. If clinically warranted, recollection of the specimen is suggested. Performed By: #### P OCGL #### [facility] [address] [place] [address] Sodium [Moles/Vol] 135 mmol/L Normal 135-145 [facility] Comment on above: Performed By: #### P OCGL #### [facility] [address] [address] Basic metabolic 2000 panelon 07-11-2024 Calcium [Mass/Vol] 8.9 mg/dL 8.8 - 10. 2 mg/dL [facility] Comment on above: Performed at [facility] [address] [place] [address] Chloride [Moles/Vol] 103 mmol/L 98 - 11 1 meq/L [facility] CO2 [Moles/Vol] 22 mmol/L 22 - 29 meq/L [facility] Creatinine [Mass/Vol] 1.0 mg/dL High 0.5 - 0.9 mg/dL [facility] Glucose [Mass/Vol] 166 mg/dL High 74 - 109 mg/dL [facility] Interpretation and review of laboratory results Abnormal [facility] Potassium [Moles/Vol] 4.7 mmol/L 3.5 - 5.2 meq/L [facility] Comment on above: Low level specimen h emolysis is present as indicated by the interference index on the Yamilet analyzer. The reported K+ level may be falsely increased. If clinically warranted, recollection of the specimen is suggested. Sodium [Moles/Vol] 135 mmol/L 135 - 145 meq/L [facility] Urea nitrogen [Mass/Vol] 16 mg/dL 8 - 23 mg/dL [facility] GFR, ESTIMATEDon 07-11-2024 GFR/1.73 sq M.predicted MDRD (S/P/Bld) [Vol rate/Area] 62 mL/min/{1.73_m2} Normal >60 [facility] Comment on above: Pediatric calculator link https://www.kidney.org/professionals/kdoqi/gfr_calculatorped [...] that affects renal tubular secretion. Performed at [address] [address] Result Comment: Pedi atric calculator link https://www.kidney.org/professionals/kdoqi/gfr_calculatorped [...] secretion. Performed By: #### P OCGL #### [facility] [address] [place] [address] GLUCOSE POCon 07-11-2024 Glucose [Mass/Vol] 177 mg/dL High 70-108 [facility] Comment on above: Performed at [facility] [employer] [facility] [address] [place] [address] Performed By: #### P OCGL #### [facility] [address] [place] [address] Glucose Auto test strip (Bld ) [Mass/Vol]on 07-11-2024 Interpretation and review of laboratory results Abnormal [facility] HGB,HCTon 07-11-2024 Hematocrit (Bld) [Volume fraction] 33.4 % Low 37.0-47.0 [facility] Comment on above: Performed at [facility] [employer] [facility] [address] [place] [address] Performed By: #### P OCGL #### [place] [address] Hemoglobin (Bld) [Mass/Vol] 10.8 g/dL Low 12.0-16.0 [facility] Comment on above: Performed By: #### P OCGL #### [place] [address] Hemoglobin and Hematocrit pa bhavna (Bld)on 07-11-2024 Interpretation and review of laboratory results Abnormal [facility] No Panel Informationon 07-11 [facility] ANION GAPon 07-10-2024 Anion gap [Moles/Vol] 8.0 mmol/L Normal 8.0-16.0 [facility] Comment on above: Result Comment: ANIO N GAP = Sodium -(Chloride + CO2) Performed By: #### P OCGL #### [facility] [address] Anion Gapon 07-10-2024 Anion gap [Moles/Vol] 8 mmol/L 8.0 - 16.0 meq/L [facility] Comment on above: ANION GAP = Sodium - (Chloride + CO2) Performed at [facility] [address] [place] [address] BASIC METABOL PANELon 2024 Calcium [Mass/Vol] 8.8 mg/dL Normal 8.8-10.2 [facility] Comment on above: Performed By: #### P OCGL #### [facility] [address] [place] [address] CO2 [Moles/Vol] 26 mmol/L Normal 22-29 [facility] Comment on above: Performed By: #### P OCGL #### [facility] [address] [place] [address] Creatinine [Mass/Vol] 1.1 mg/dL High 0.5-0.9 [facility] Comment on above: Performed By: #### P OCGL #### [facility] [address] [place] [address] Glucose [Mass/Vol] 198 mg/dL High 74-109 [facility] Comment on above: Performed By: #### P OCGL #### [facility] [address] [place] [address] Urea nitrogen [Mass/Vol] 24 mg/dL High 8-23 [facility] Comment on above: Performed By: #### P OCGL #### [facility] [address] [place] [address] Chloride [Moles/Vol] 101 mmol/L Normal 98-111 [facility] Comment on above: Performed By: #### P OCGL #### [facility] [address] [place] [address] Potassium [Moles/Vol] 4.6 mmol/L Normal 3.5-5.2 [facility] Comment on above: Performed By: #### P OCGL #### [facility] [address] [place] [address] Sodium [Moles/Vol] 135 mmol/L Normal 135-145 [facility] Comment on above: Performed By: #### P OCGL #### [facility] [address] [place] [address] Basic metabolic 2000 panelon 07-10-2024 Calcium [Mass/Vol] 8.8 mg/dL 8.8 - 10. 2 mg/dL [facility] Comment on above: Performed at [facility] [address] [place] [address] Chloride [Moles/Vol] 101 mmol/L 98 - 11 1 meq/L [facility] CO2 [Moles/Vol] 26 mmol/L 22 - 29 meq/L [facility] Creatinine [Mass/Vol] 1.1 mg/dL High 0.5 - 0.9 mg/dL [facility] Glucose [Mass/Vol] 198 mg/dL High 74 - 109 mg/dL [facility] Potassium [Moles/Vol] 4.6 mmol/L 3.5 - 5.2 meq/L [facility] [employer] Sodium [Moles/Vol] 135 mmol/L 135 - 145 meq/L [facility] Urea nitrogen [Mass/Vol] 24 mg/dL High 8 - 23 mg/dL [facility] GFR, ESTIMATEDon 07-10-2024 GFR/1.73 sq M.predicted MDRD (S/P/Bld) [Vol rate/Area] 56 mL/min/{1.73_m2} Abnormal >60 [facility] Comment on above: Pediatric calculator link https://www.kidney.org/professionals/kdoqi/gfr_calculatorped [...] that affects renal tubular secretion. Performed at [facility] [address] [place] [address] Result Comment: Pedi atric calculator link https://www.kidney.org/professionals/kdoqi/gfr_calculatorped [...] secretion. Performed By: #### P OCGL #### [address] [address] GLUCOSE POCon 07-10-2024 Glucose [Mass/Vol] 267 mg/dL High 70-108 [facility] Comment on above: Performed at [facility] [address] [place] [address] Performed By: #### P OCGL #### [address] [address] Glucose [Mass/Vol] 154 mg/dL High 70-108 [facility] Comment on above: Performed at [facility] [address] [place] [address] Performed By: #### P OCGL #### [address] [address] Glucose [Mass/Vol] 302 mg/dL High 70-108 [facility] Comment on above: Performed at [facility] [address] [place] [address] Performed By: #### P OCGL #### [address] [address] Glucose [Mass/Vol] 205 mg/dL High 70-108 [facility] Comment on above: Performed at [facility] [address] [place] [address] Performed By: #### P OCGL #### [address] [address] Glucose Auto test strip (Bld ) [Mass/Vol]on 07-10-2024 Interpretation and review of laboratory results Abnormal [facility] Interpretation and review of laboratory results Abnormal [facility] Interpretation and review of laboratory results Abnormal [facility] Interpretation and review of laboratory results Abnormal [facility] HGB,HCTon 07-10-2024 Hematocrit (Bld) [Volume fraction] 32.2 % Low 37.0-47.0 [facility] Comment on above: Performed at [facility] [address] [place] [address] Performed By: #### P OCGL #### [place] [id number] Hemoglobin (Bld) [Mass/Vol] 10.0 g/dL Low 12.0-16.0 [facility] Comment on above: Performed By: #### P OCGL #### [facility] [address] [place] [address] Hemoglobin and Hematocrit pa bhavna (Bld)on 07-10-2024 Hemoglobin (Bld) [Mass/Vol] 10 g/dL Low [facility] Interpretation and review of laboratory results Abnormal [facility] No Panel Informationon 07-10 Interpretation and review of laboratory results Abnormal [facility] ANION GAPon 07-09-2024 Anion gap [Moles/Vol] 10.0 mmol/L Normal 8.0-16.0 [facility] Comment on above: Result Comment: ANIO N GAP = Sodium -(Chloride + CO2) Performed By: #### P OCGL #### [address] [address] Anion Gapon 07-09-2024 Anion gap [Moles/Vol] 10 mmol/L 8.0 - 16.0 meq/L [facility] Comment on above: ANION GAP = Sodium - (Chloride + CO2) Performed at [facility] [address] [place] [address] BASIC METABOL PANELon 2024 Calcium [Mass/Vol] 8.3 mg/dL Low 8.8-10.2 [facility] Comment on above: Performed By: #### P OCGL #### [facility] [address] [address] CO2 [Moles/Vol] 23 mmol/L Normal 22-29 [facility] Comment on above: Performed By: #### P OCGL #### [facility] [address] [place] [address] Creatinine [Mass/Vol] 1.1 mg/dL High 0.5-0.9 [facility] Comment on above: Performed By: #### P OCGL #### [facility] [address] [place] [address] Glucose [Mass/Vol] 197 mg/dL High 74-109 [facility] Comment on above: Performed By: #### P OCGL #### [facility] [address] [place] [address] Urea nitrogen [Mass/Vol] 21 mg/dL Normal 8-23 [facility] Comment on above: Performed By: #### P OCGL #### [facility] [address] [place] [address] Chloride [Moles/Vol] 103 mmol/L Normal 98-111 [facility] Comment on above: Performed By: #### P OCGL #### [facility] [address] [place] [address] Potassium [Moles/Vol] 5.8 mmol/L High 3.5-5.2 [facility] Comment on above: Performed By: #### P OCGL #### [facility] [address] [place] [address] Sodium [Moles/Vol] 136 mmol/L Normal 135-145 [facility] Comment on above: Performed By: #### P OCGL #### [facility] [address] [place] [address] Basic metabolic 2000 panelon 07-09-2024 Calcium [Mass/Vol] 8.3 mg/dL Low 8.8 - 10. 2 mg/dL [facility] Comment on above: Performed at [facility] [employer] [facility] [address] [place] [address] Chloride [Moles/Vol] 103 mmol/L 98 - 11 1 meq/L [facility] CO2 [Moles/Vol] 23 mmol/L 22 - 29 meq/L [facility] Creatinine [Mass/Vol] 1.1 mg/dL High 0.5 - 0.9 mg/dL [facility] Glucose [Mass/Vol] 197 mg/dL High 74 - 109 mg/dL [facility] Potassium [Moles/Vol] 5.8 mmol/L High 3.5 - 5.2 meq/L [facility] Sodium [Moles/Vol] 136 mmol/L 135 - 145 meq/L [facility] Urea nitrogen [Mass/Vol] 21 mg/dL 8 - 23 mg/dL [facility] GFR, ESTIMATEDon 07-09-2024 GFR/1.73 sq M.predicted MDRD (S/P/Bld) [Vol rate/Area] 56 mL/min/{1.73_m2} Abnormal >60 [facility] Comment on above: Pediatric calculator [...] that affects renal tubular secretion. Performed at [facility] [place] [address] Result Comment: Pedi atric calculator link https://www.kidney.org/professionals/kdoqi/gfr_calculatorped [...] secretion. Performed By: #### P OCGL #### [facility] [address] [place] [address] GLUCOSE POCon 07-09-2024 Glucose [Mass/Vol] 211 mg/dL High 70-108 [facility] Comment on above: Performed at [facility] [address] [place] [address] Performed By: #### P OCGL #### [facility] [address] [place] [address] Glucose [Mass/Vol] 212 mg/dL High 70-108 [facility] Comment on above: Performed at [facility] [address] [place] [address] Performed By: #### P OCGL #### [facility] [address] [place] [address] Glucose [Mass/Vol] 169 mg/dL High 70-108 [facility] Comment on above: Performed at [facility] [address] [place] [address] Performed By: #### P OCGL #### [facility] [address] Glucose [Mass/Vol] 229 mg/dL High 70-108 [facility] Comment on above: Performed at [facility] [address] [place] [address] Performed By: #### P OCGL #### [place] [address] Glucose [Mass/Vol] 203 mg/dL High 70-108 [facility] Comment on above: Performed at [facility] [address] [place] [address] Performed By: #### P OCGL #### [place] [address] HGB,HCTon 07-09-2024 Hematocrit (Bld) [Volume fraction] 36.7 % Low 37.0-47.0 [facility] Comment on above: Performed at [facility] [address] [place] [address] Performed By: #### P OCGL #### [place] [address] Hemoglobin (Bld) [Mass/Vol] 11.9 g/dL Low 12.0-16.0 [facility] Comment on above: Performed By: #### P OCGL #### [place] [address] No Panel Informationon 07-09 Interpretation and review of laboratory results Abnormal [facility] POTASSIUMon 07-09-2024 Potassium [Moles/Vol] 4.7 mmol/L Normal 3.5-5.2 [facility] Comment on above: Performed By: #### K P #### [place] [address] Potassiumon 07-09-2024 Potassium [Moles/Vol] 4.7 mmol/L 3.5 - 5.2 meq/L [facility] Comment on above: Performed at [facility] [address] [place] [address] GLUCOSE POCon 07-08-2024 Glucose [Mass/Vol] 266 mg/dL High 70-108 [facility] Comment on above: Performed at [facility] [address] [place] [address] Performed By: #### P OCGL #### [facility] [address] [place] [address] Glucose [Mass/Vol] 120 mg/dL High 70-108 [facility] Comment on above: Performed at [facility] [address] [place] [address] Performed By: #### P OCGL #### [facility] [address] [place] [address] Glucose [Mass/Vol] 105 mg/dL Normal 70-108 [facility] Comment on above: Performed at [facility] [address] [place] [address] Performed By: #### P OCGL #### [facility] [address] [address] Glucose [Mass/Vol] 136 mg/dL High 70-108 [facility] Comment on above: Performed at [facility] [address] [place] [address] Performed By: #### P OCGL #### [facility] [address] [address] Glucose Auto test strip (Bld ) [Mass/Vol]on 07-08-2024 Interpretation and review of laboratory results Abnormal [facility] Interpretation and review of laboratory results Abnormal [facility] Interpretation and review of laboratory results Abnormal [facility] XR LUMBAR SPINE 1 VWon 07-08 [...] Boo Headley MD 07/08/24 Final result Normal [facility] XR Lumbar spine Single viewo n 07-08-2024 1. Evidence of posterior fusion at L4-L5. Please refer to operative report for further details. This report has been created using voice recognition software. It may contain minor errors which are inherent in voice recognition technology. Electronically signed by Dr. Jerrod Betts [facility] Sivakumar Betts MD - 07/08/2024 PROCEDURE: XR [...] technology. Electronically signed by Dr. Jerrod Betts [facility] Radiology Study observation (narrative) [facility] Intraoperative appearance of the lumbar spine. This report has been created using voice recognition software. It may contain minor errors which are inherent in voice recognition technology. Electronically signed by Dr. Boo Headley [facility] MOBILE LATERAL LUMBA R SPINE: CLINICAL INFORMATION: surgery. L3-L5 decompression. L4-L5- fusion COMPARISON: No prior study. TECHNIQUE: A single lateral mobile view of the lumbar spine was obtained For localization purposes. FINDINGS: 2 spinal needles are present posteriorly directed at the L4 and L5 levels. [facility] Boo Headley MD - 07/08/2024 [...] technology. Electronically signed by Dr. Boo Headley [facility] Radiology Study observation (narrative) [facility] XR Lumbar spine Single viewO rdered By: Sivakumar Betts on 07-08-2024 [facility] Work Phone: XR Lumbar spine Single viewO rdered By: Boo Headley on 07-08-2024 [facility] Work Phone: ANION GAPon 07-07-2024 Anion gap [Moles/Vol] 14.0 mmol/L Normal 8.0-16.0 [facility] Comment on above: Result Comment: ANIO N GAP = Sodium -(Chloride + CO2) Performed By: #### B MP, EGFR1, CBCND, ANION #### [facility] [address] [place] [address] Anion Gapon 07-07-2024 Anion gap [Moles/Vol] 14 mmol/L 8.0 - 16.0 meq/L [facility] Comment on above: ANION GAP = Sodium - (Chloride + CO2) Performed at [facility] [address] [place] [address] BASIC METABOL PANELon 2024 CO2 [Moles/Vol] 21 mmol/L Low 22-29 [facility] Comment on above: Performed By: #### B MP, EGFR1, CBCND, ANION #### [facility] [address] [place] [address] Creatinine [Mass/Vol] 1.0 mg/dL High 0.5-0.9 [facility] Comment on above: Performed By: #### B MP, EGFR1, CBCND, ANION #### [facility] [address] [place] [address] Glucose [Mass/Vol] 172 mg/dL High 74-109 [facility] Comment on above: Performed By: #### B MP, EGFR1, CBCND, ANION #### [facility] [address] [place] [address] Urea nitrogen [Mass/Vol] 33 mg/dL High 8-23 [facility] Comment on above: Performed By: #### B MP, EGFR1, CBCND, ANION #### [facility] [address] [place] [address] Calcium [Mass/Vol] 9.2 mg/dL Normal 8.8-10.2 [facility] Comment on above: Performed By: #### B MP, EGFR1, CBCND, ANION #### [facility] [address] [place] [address] Chloride [Moles/Vol] 103 mmol/L Normal 98-111 [facility] Comment on above: Performed By: #### B MP, EGFR1, CBCND, ANION #### [facility] [employer] [address] [place] [address] Potassium [Moles/Vol] 4.4 mmol/L Normal 3.5-5.2 [facility] Comment on above: Result Comment: Low level specimen hemolysis is present as indicated by the interference index on the Yamilet analyzer. ??The reported K+ level may be falsely increased. If clinically warranted, recollection of the specimen is suggested. Performed By: #### B MP, EGFR1, CBCND, ANION #### [facility] [address] [place] [address] Sodium [Moles/Vol] 138 mmol/L Normal 135-145 [facility] Comment on above: Performed By: #### B MP, EGFR1, CBCND, ANION #### [facility] [address] [place] [address] Basic metabolic 2000 panelon 07-07-2024 Calcium [Mass/Vol] 9.2 mg/dL 8.8 - 10. 2 mg/dL [facility] Comment on above: Performed at [facility] [address] [place] [address] Chloride [Moles/Vol] 103 mmol/L 98 - 11 1 meq/L [facility] CO2 [Moles/Vol] 21 mmol/L Low 22 - 29 meq/L [facility] Creatinine [Mass/Vol] 1.0 mg/dL High 0.5 - 0.9 mg/dL [facility] Glucose [Mass/Vol] 172 mg/dL High 74 - 109 mg/dL [facility] Interpretation and review of laboratory results Abnormal [facility] Potassium [Moles/Vol] 4.4 mmol/L 3.5 - 5.2 meq/L [facility] Comment on above: Low level specimen h emolysis is present as indicated by the interference index on the Yamilet analyzer. The reported K+ level may be falsely increased. If clinically warranted, recollection of the specimen is suggested. Sodium [Moles/Vol] 138 mmol/L 135 - 145 meq/L [facility] Urea nitrogen [Mass/Vol] 33 mg/dL High 8 - 23 mg/dL [facility] [facility] CBCon 07-07-2024 Erythrocyte distribution width (RBC) [Entitic vol] 40.3 fL 35.0 - 45.0 fL [facility] Platelets (Bld) [#/Vol] 236 10*3/uL [facility] RBC (Bld) [#/Vol] 4.73 10*6/uL [facility] S [facility] WBC (Bld) [#/Vol] 8.6 10*3/uL [facility] Se cours [facility] CBC NO DIFFERENTIALon 2024 Erythrocyte distribution width (RBC) [Ratio] 12.6 % Normal 11.5-14.5 [facility] Comment on above: Performed By: #### B MP, EGFR1, CBCND, ANION #### [facility] [address] [place] [address] Hematocrit (Bld) [Volume fraction] 41.6 % Normal 37.0-47.0 [facility] Comment on above: Performed By: #### B MP, EGFR1, CBCND, ANION #### [address] [place] [address] Hemoglobin (Bld) [Mass/Vol] 13.5 g/dL Normal 12.0-16.0 [facility] Comment on above: Performed By: #### B MP, EGFR1, CBCND, ANION #### [address] [place] [address] MCH (RBC) [Entitic mass] 28.5 pg Normal 26.0-33.0 [facility] Comment on above: Performed By: #### B MP, EGFR1, CBCND, ANION #### [place] [address] MCHC (RBC) [Mass/Vol] 32.5 g/dL Normal 32.2-35.5 [facility] Comment on above: Performed By: #### B MP, EGFR1, CBCND, ANION #### [place] [address] MCV (RBC) [Entitic vol] 87.9 fL Normal 81.0-99.0 [facility] Comment on above: Performed By: #### B MP, EGFR1, CBCND, ANION #### [place] [address] PLATELET 236 thou/mm3 Normal 130-400 [facility] Comment on above: Performed By: #### B MP, EGFR1, CBCND, ANION #### [place] [address] Platelet mean volume (Bld) [Entitic vol] 9.6 fL Normal 9.4-12.4 [facility] Comment on above: Performed at [facility] [address] [place] [address] Performed By: #### B MP, EGFR1, CBCND, ANION #### [place] [address] RBC 4.73 mill/mm3 Normal 4.20-5.40 [facility] Comment on above: Performed By: #### B MP, EGFR1, CBCND, ANION #### [place] [address] RDW-SD 40.3 fL Normal 35.0-45.0 [facility] Comment on above: Performed By: #### B MP, EGFR1, CBCND, ANION #### [place] [address] WBC 8.6 thou/mm3 Normal 4.8-10.8 [facility] Comment on above: Performed By: #### B MP, EGFR1, CBCND, ANION #### [facility] [place] [address] GFR, ESTIMATEDon 07-07-2024 GFR/1.73 sq M.predicted MDRD (S/P/Bld) [Vol rate/Area] 62 mL/min/{1.73_m2} Normal >60 [facility] Comment on above: Pediatric calculator [...] that affects renal tubular secretion. Performed at [facility] [place] [address] Result Comment: Pedi atric calculator link https://www.kidney.org/professionals/kdoqi/gfr_calculatorped [...] #### B MP, EGFR1, CBCND, ANION #### [facility] [address] [place] [address] GLUCOSE POCon 07-07-2024 Glucose [Mass/Vol] 271 mg/dL High 70-108 [facility] Comment on above: Performed at [facility] [address] [place] [address] Performed By: #### P OCGL #### [facility] [address] [place] [address] Glucose [Mass/Vol] 188 mg/dL High 70-108 [facility] Comment on above: Performed at [facility] [address] [place] [address] Performed By: #### P OCGL #### [facility] [address] [place] [address] Glucose [Mass/Vol] 174 mg/dL High 70-108 [facility] [employer] Comment on above: Performed at [facility] [address] [place] [address] Performed By: #### P OCGL #### [facility] [address] [place] [address] Glucose [Mass/Vol] 76 mg/dL Normal 70-108 [facility] [employer] Comment on above: Performed at [facility] [employer] [facility] [address] [place] [address] Performed By: #### P OCGL #### [facility] [address] [place] [address] Glomerular Filtration Rate, Estimatedon 07-07-2024 [facility] [employer] Glucose Auto test strip (Bld ) [Mass/Vol]on 07-07-2024 Interpretation and review of laboratory results Abnormal [facility] [employer] Interpretation and review of laboratory results Abnormal [facility] [employer] Interpretation and review of laboratory results Abnormal [facility] No Panel Informationon 07-07 [employer] XR CHEST (2 VW)on 07-07-2024 XR CHEST [...] Kj Epps MD 07/07/24 Final result Normal [facility] XR Chest 2 Viewson Impression: No acute cardiopulmonary disease. This document has been electronically signed by: Kj Epps MD on 07/07/2024 02:22 AM [facility]SOL[facility] Chest X-ray: 2 views . Indication: Pulmonary congestion. Comparison: None Findings: The lungs are well aerated. No focal consolidation, or pleural effusion. The cardiac silhouette is normal in size. Bony thorax is grossly intact. Bilateral shoulder arthroplasty. External metallic density versus surgical hardware projects on the lower cervical spine. [facility] Kj Epps MD - 07/07/2024 Chest X-ray: [...] Kj Epps MD on 07/07/2024 02:22 AM [facility] Radiology Study observation (narrative) [facility] XR Chest 2 ViewsOrdered By: Kj Epps on 07-07-2024 [facility] ANION GAPon 07-06-2024 Anion gap [Moles/Vol] 14.0 mmol/L Normal 8.0-16.0 [facility] Comment on above: Result Comment: ANIO N GAP = Sodium -(Chloride + CO2) Performed By: #### P OCGL #### [facility] [address] [place] [address] APTTon 07-06-2024 aPTT Coag (Bld) [Time] 29.5 s Normal 22.0-38.0 [facility] Comment on above: Result Comment: Ther apeutic Heparin Reference Range= 60-95 seconds (corresponds to 0.3 to 0.7 u/mL Anti-Xa factor activity) Performed By: #### P OCGL #### [facility] [address] [place] [address] Anion Gapon 07-06-2024 Anion gap [Moles/Vol] 14 mmol/L 8.0 - 16.0 meq/L [facility] Comment on above: ANION GAP = Sodium - (Chloride + CO2) Performed at [facility] [address] [place] [address] CBC WITH DIFFERENTIALon 06-23 ABS BASOPHILS 0.0 thou/mm3 Normal 0.0-0.1 [facility] Comment on above: Performed By: #### P OCGL #### [facility] [address] [place] [address] ABS EOSINOPHILS 0.0 thou/mm3 Normal 0.0-0.4 [facility] Comment on above: Performed By: #### P OCGL #### [address] [address] ABS IMMATURE GRANS (IG) 0.05 thou/mm3 Normal 0.00-0.07 [facility] Comment on above: Performed By: #### P OCGL #### [address] [address] ABS LYMPHOCYTES 2.8 thou/mm3 Normal 1.0-4.8 [facility] Comment on above: Performed By: #### P OCGL #### [address] [address] ABS MONOCYTES 0.8 thou/mm3 Normal 0.4-1.3 [facility] Comment on above: Performed By: #### P OCGL #### [address] [address] ABS NEUTROPHILS 7.9 thou/mm3 High 1.8-7.7 [facility] Comment on above: Performed By: #### P OCGL #### [address] [address] Basophils/100 WBC (Bld) 0.2 % Normal [facility] Comment on above: Performed By: #### P OCGL #### [address] [address] Eosinophils/100 WBC (Bld) 0.3 % Normal [facility] Comment on above: Performed By: #### P OCGL #### [address] [address] Erythrocyte distribution width (RBC) [Ratio] 12.5 % Normal 11.5-14.5 [facility] Comment on above: Performed By: #### P OCGL #### [address] [address] Hematocrit (Bld) [Volume fraction] 42.6 % Normal 37.0-47.0 [facility] Comment on above: Performed By: #### P OCGL #### [address] [address] Hemoglobin (Bld) [Mass/Vol] 13.8 g/dL Normal 12.0-16.0 [facility] Comment on above: Performed By: #### P OCGL #### [address] [address] IMMATURE GRANS (IG) 0.4 % Normal [facility] Comment on above: Performed By: #### P OCGL #### [address] [address] Lymphocytes/100 WBC (Bld) 24.0 % Normal [facility] Comment on above: Performed By: #### P OCGL #### [address] [address] MCH (RBC) [Entitic mass] 28.6 pg Normal 26.0-33.0 [facility] Comment on above: Performed By: #### P OCGL #### [address] [address] MCHC (RBC) [Mass/Vol] 32.4 g/dL Normal 32.2-35.5 [facility] Comment on above: Performed By: #### P OCGL #### [address] [address] MCV (RBC) [Entitic vol] 88.2 fL Normal 81.0-99.0 [facility] Comment on above: Performed By: #### P OCGL #### [address] [address] Monocytes/100 WBC (Bld) 6.8 % Normal [facility] Comment on above: Performed By: #### P OCGL #### [address] [address] Neutrophils/100 WBC (Bld) 68.3 % Normal [facility] Comment on above: Performed By: #### P OCGL #### [address] [address] NRBC 0 /100 wbc Normal [facility] Comment on above: Performed By: #### P OCGL #### [address] [address] PLATELET 274 thou/mm3 Normal 130-400 [facility] Comment on above: Performed By: #### P OCGL #### [facility] [address] [place] [address] Platelet mean volume (Bld) [Entitic vol] 9.7 fL Normal 9.4-12.4 [facility] Comment on above: Performed By: #### P OCGL #### [facility] [address] [place] [address] RBC 4.83 mill/mm3 Normal 4.20-5.40 [facility] Comment on above: Performed By: #### P OCGL #### [facility] [address] [place] [address] RDW-SD 39.9 fL Normal 35.0-45.0 [facility] Comment on above: Performed By: #### P OCGL #### [facility] [address] [place] [address] WBC 11.6 thou/mm3 High 4.8-10.8 [facility] Comment on above: Performed By: #### P OCGL #### [facility] [address] [place] [address] CBC with Auto Differentialon 07-06-2024 Basophils (Bld) [...] [facility] Comment on above: Performed at [facility] [address] [place] [address] Platelets (Bld) [#/Vol] 274 10*3/uL [facility] RBC (Bld) [#/Vol] 4.83 10*6/uL [facility] WBC (Bld) [#/Vol] 11.6 10*3/uL High [facility] COMP. METABOLIC PANELon 06-23 Albumin [Mass/Vol] 4.3 g/dL Normal 3.4-4.9 [facility] Comment on above: Performed By: #### P OCGL #### [facility] [address] [address] ALP [Catalytic activity/Vol] 65 U/L Normal 35-104 [facility] Comment on above: Performed By: #### P OCGL #### [address] [address] ALT [Catalytic activity/Vol] 24 U/L Normal 10-35 [facility] Comment on above: Performed By: #### P OCGL #### [address] [address] AST [Catalytic activity/Vol] 23 U/L Normal 10-35 [facility] Comment on above: Performed By: #### P OCGL #### [address] [address] Bilirubin [Mass/Vol] 0.4 mg/dL Normal 0.3-1.2 [facility] Comment on above: Performed By: #### P OCGL #### [address] [address] Calcium [Mass/Vol] 9.6 mg/dL Normal 8.8-10.2 [facility] Comment on above: Performed By: #### P OCGL #### [address] [address] CO2 [Moles/Vol] 26 mmol/L Normal 22-29 [facility] Comment on above: Performed By: #### P OCGL #### [address] [address] Creatinine [Mass/Vol] 1.3 mg/dL High 0.5-0.9 [facility] Comment on above: Performed By: #### P OCGL #### [facility] [address] [place] [address] Glucose [Mass/Vol] 259 mg/dL High 74-109 [facility] Comment on above: Performed By: #### P OCGL #### [address] [address] Protein [Mass/Vol] 7.2 g/dL Normal 6.4-8.3 [facility] Comment on above: Performed By: #### P OCGL #### [facility] [address] [place] [address] Urea nitrogen [Mass/Vol] 43 mg/dL High 8-23 [facility] Comment on above: Performed By: #### P OCGL #### [facility] [address] [place] [address] Chloride [Moles/Vol] 96 mmol/L Low 98-111 [facility] Comment on above: Performed By: #### P OCGL #### [address] [address] POTASSIUM WITH REFLEX MG 5.0 meq/L Normal 3.5-5.2 [facility] Comment on above: Result Comment: Low level specimen hemolysis is present as indicated by the interference index on the Yam[employer] analyzer. ??The reported K+ level may be falsely increased. If clinically warranted, recollection of the specimen is suggested. Performed By: #### P OCGL #### [address] [address] Sodium [Moles/Vol] 136 mmol/L Normal 135-145 [facility] Comment on above: Performed By: #### P OCGL #### [address] [address] Comprehensive metabolic 2000 panelon 07-06-2024 Albumin BCG dye [Mass/Vol] 4.3 g/dL 3.4 - 4.9 g/dL [facility] ALP [Catalytic activity/Vol] 65 U/L 35 - 104 U/L [facility] ALT No additional P-5'-P [Catalytic activity/Vol] 24 U/L 10 - 35 U/L [facility] Comment on above: Performed at [facility] [address] [place] [address] AST [Catalytic activity/Vol] 23 U/L 10 - 35 U/L [facility] Bilirubin [Mass/Vol] 0.4 mg/dL 0.3 - 1 .2 mg/dL [facility] Calcium [Mass/Vol] 9.6 mg/dL 8.8 - 10. 2 mg/dL [facility] Chloride [Moles/Vol] 96 mmol/L Low 98 - 11 1 meq/L [facility] [employer] CO2 [Moles/Vol] 26 mmol/L 22 - 29 meq/L [facility] Creatinine [Mass/Vol] 1.3 mg/dL High 0.5 - 0.9 mg/dL [facility] Glucose [Mass/Vol] 259 mg/dL High 74 - 109 mg/dL [facility] [employer] Potassium [Moles/Vol] 5.0 mmol/L 3.5 - 5.2 meq/L [facility] [employer] Comment on above: Low level specimen h emolysis is present as indicated by the interference index on the Yamilet analyzer. The reported K+ level may be falsely increased. If clinically warranted, recollection of the specimen is suggested. Protein [Mass/Vol] 7.2 g/dL 6.4 - 8.3 g/dL [facility] Sodium [Moles/Vol] 136 mmol/L 135 - 145 meq/L [facility] [employer] Urea nitrogen [Mass/Vol] 43 mg/dL High 8 - 23 mg/dL [facility] EKG 12 leadOrdered By: Kp Rodriges on 07-06-2024 Atrial Rate 68 BPM [employer] Work Phone: P [place] 58 degrees [employer] Work Phone: P-R Interval 146 ms [employer] Work Phone: Q-T Interval 422 ms [employer] Work Phone: QRS Duration 82 ms [employer] Work Phone: QTc Calculation (Bazett) 448 ms [employer] Work Phone: R [place] 67 degrees Keith Green [employer] Work Phone: T [place] 66 degrees [employer] Work Phone: Ventricular Rate 68 BPM Keith mcdermott [employer] Work Phone: Keith Green [employer] Work Phone: EKG 12 leadon 07-06-2024 Normal sinus rhythm Possible Left atrial enlargement ST & T wave abnormality, consider anterior ischemia Abnormal ECG No previous ECGs available Clinical correlation is indicated Confirmed by Kp Rodriges ([id number]) on 07/06/2024 11:10:52 PM [facility] Kp Vargas MD - 07/06/2024 Normal sinus rhythm Possible Left atrial enlargement ST & T wave abnormality, consider anterior ischemia Abnormal ECG No previous ECGs available Clinical correlation is indicated Confirmed by Kp Rodriges ([id number]) on 07/06/2024 11:10:52 PM [facility] [employer] EKG 12-LEADon 07-06-2024 EKG 12-LEAD 68 68 146 82 [phone] Normal sinus rhythm Possible Left atrial enlargement ST & T wave abnormality, consider anterior ischemia Abnormal ECG No previous ECGs available Clinical correlation is indicated Confirmed by Kp Rodriges ([id number]) on 07/06/2024 11:10:52 PM [email or web address] [email or web address] ?[email or web address]=[id number]&D ate=06-07-2024&Time=20 %3a11%3a37%3a00&TestTy pe=ECG&Site=3&OutputTy pe=PDF&Ext=PDF Normal [facility] GFR, ESTIMATEDon 07-06-2024 GFR/1.73 sq M.predicted MDRD (S/P/Bld) [Vol rate/Area] 46 mL/min/{1.73_m2} Abnormal >60 [employer] Comment on above: Pediatric calculator link https://www.kidney.org/professionals/kdoqi/gfr_calculatorped [...] that affects renal tubular secretion. Performed at [facility] [place] [address] Result Comment: Soniya robertson calculator link https://www.kidney.org/professionals/kdoqi/gfr_calculatorped [...] secretion. Performed By: #### P OCGL #### [facility] [address] [place] [address] GLUCOSE POCon 07-06-2024 Glucose [Mass/Vol] 280 mg/dL High 70-108 [facility] Comment on above: Performed at [facility] [employer] [place] [address] Performed By: #### P OCGL #### [facility] [place] [id number] Glucose Auto test strip (Bld ) [Mass/Vol]on 07-06-2024 Interpretation and review of laboratory results Abnormal [facility] [employer] [facility] [employer] INR Coag (PPP) [Relative jackie e]on 07-06-2024 [facility] [employer] No Panel Informationon 07-06 Interpretation and review of laboratory results Abnormal [facility] [employer] PROTHOMBIN TIMEon 07-06-2024 INR Coag (Bld) [Relative time] 1.02 {INR} Normal 0.85-1.13 [facility] Comment on above: Result Comment: ---- -----INDICATION INR Reference Range DVT, PE, AF, AMI, tissue heart valve 2.0 to 3.0 Mechanical prosthetic valves 2.5 to 3.5 Performed By: #### P OCGL #### [facility] [address] [place] [address] Protime-INRon 07-06-2024 INR Coag (PPP) [Relative time] 1.02 {INR} 0.85 - 1.13 [facility] [employer] Comment on above: ---------INDICATION- INR Reference Range DVT, PE, AF, AMI, tissue heart valve 2.0 to 3.0 Mechanical prosthetic valves 2.5 to 3.5 Performed at [facility] [address] [place] [address] aPTT Coag (Bld) [Time]on aPTT Coag (PPP) [Time] 29.5 s Jaylan n [employer] Comment on above: Therapeutic Heparin Reference Range= 60-95 seconds (corresponds to 0.3 to 0.7 u/mL Anti-Xa factor activity) Performed at [facility] [address] [place] [address] [employer] Estimated glomerular filtrat ion rate (GFR) non- Americanon 06-27-2024 GFR/1.73 sq M.predicted among non-blacks MDRD (S/P/Bld) [Vol rate/Area] Estimated glomerular filtration rate (GFR) non- Low >=60 mL/min/1.73 m 2 Laboratory - Chemistry and C hemistry - challengeon 06-27-2024 Calcium [Mass/Vol] 9.8 mg/dL 8.5-10.1 [facility] Chloride [Moles/Vol] 101 mmol/L 98-107 [facility] CO2 [Moles/Vol] 28.6 mmol/L 21.0-32.0 [facility] Creatinine [Mass/Vol] 1.41 mg/dL High 0.55-1.02 [facility] GFR/1.73 sq M.predicted MDRD (S/P/Bld) [Vol rate/Area] 45 mL/min/{1.73_m2} Low >=60 mL/min/1.73 m 2 Glucose [Mass/Vol] 66 mg/dL Low 74-106 [facility] Potassium [Moles/Vol] 5.1 mmol/L 3.5-5.1 [facility] Sodium [Moles/Vol] 139 mmol/L 136-145 [facility] Urea nitrogen [Mass/Vol] 29.0 mg/dL High 7.0-18.0 Urea nitrogen/Creatinine [Mass ratio] 20.6 mg/mg Bilirubin Ql (U) LARGE Abnormal NEGATIVE [facility] Glucose (U) [Mass/Vol] Negative NEGATIVE [facility] Ketones Ql (U) TRACE mg/dL Abnormal NEGATIVE pH (U) 5.5 [pH] 5.0-9.0 Specific gravity (U) [Rel density] 1.025 1.005-1.025 Urobilinogen Qn (U) 0.2 {Nela'U}/dL 0.2-1.0 Laboratory - Specimen inform ationon 06-27-2024 Appearance (U) CLEAR CLEAR Color (U) YELLOW YELLOW Laboratory - Urinalysison Leukocyte esterase Test strip Ql (U) Negative NEGATIVE Nitrite Ql (U) Negative NEGATIVE Protein Ql (U) Negative NEG/TRACE No Panel Informationon 06-27 Urine Microscopic Review NO Urine Occult Blood Negative NEGATIVE [facility] Serum or plasma anion gap de terminationon 06-27-2024 Anion gap [Moles/Vol] Serum or plasma an ion gap determination No Panel Informationon 06-01 Miscellaneous Test COMMENT . [facility] Comment on above: Test Ordered: [id number] Aerobic Cult, Extended IncubAerobic Cult, Extended Incub [...] STrimethoprim/Sulfa SVancomycin SPerformed at: - [facility] [address] [id number] Director: Noam Haskins PhD, Phone: [phone] Basophils Auto (Bld) [#/Vol] on 05-31-2024 Basophils (Bld) [#/Vol] Automated basophil count 0.0-0.1 Basophils/100 WBC Auto (Bld) on 05-31-2024 Basophils/100 WBC (Bld) Automated basophil % 0.2-2.0 Eosinophils/100 WBC Auto (Bl d)on 05-31-2024 Eosinophils/100 WBC (Bld) Automated eosinophil % 0.9-7.0 Erythrocyte distribution wid th Auto (RBC) [Ratio]on 05-31-2024 Erythrocyte distribution width (RBC) [Ratio] Erythrocyte distribution width [Ratio] by Automated count 11.0-15.0 Hematocrit Auto (Bld) [Volum e fraction]on 05-31-2024 Hematocrit (Bld) [Volume fraction] Hematocrit [Volume Fraction] of Blood by Automated count 36.0-48.0 Hemoglobin [Mass/volume] in Bloodon 05-31-2024 Hemoglobin (Bld) [Mass/Vol] Hemoglobin [Mass/volume] in Blood 12.0-16.0 Laboratory - Hematology and Cell countson 05-31-2024 ESR (Bld) [Velocity] 7 mm/h <=30 [facility] Immature granulocytes/100 WBC (Bld) 0.2 % 0.0-0.5 Leukocytes [#/volume] correc chip for nucleated erythrocytes in Blood by Automated counon 05-31-2024 WBC corrected for nucl RBC Auto (Bld) [#/Vol] Leukocytes [#/volume] corrected for nucleated erythrocytes in Blood by Automated coun 4.0-11.0 Lymphocytes Auto (Bld) [#/Vo l]on 05-31-2024 Lymphocytes (Bld) [#/Vol] Lymphocytes [#/volume] in Blood by Automated count 1.2-3.8 Lymphocytes/100 WBC Auto (Bl d)on 05-31-2024 Lymphocytes/100 WBC (Bld) Lymphocytes/100 leukocytes in Blood by Automated count 20.5-60.0 MCH Auto (RBC) [Entitic mass ]on 05-31-2024 MCH (RBC) [Entitic mass] MCH [Entitic mass] by Automated count 26.7-34.0 MCHC Auto (RBC) [Mass/Vol]on 05-31-2024 MCHC (RBC) [Mass/Vol] MCHC [Mass/volume] by Automated count 29.9-35.2 MCV Auto (RBC) [Entitic vol] on 05-31-2024 MCV (RBC) [Entitic vol] MCV [Entitic volume] by Automated count 81.0-99.0 Monocytes Auto (Bld) [#/Vol] on 05-31-2024 Monocytes (Bld) [#/Vol] Automated blood monocyte count 0.3-0.8 Monocytes/100 WBC Auto (Bld) on 05-31-2024 Monocytes/100 WBC (Bld) Automated monocyte % 1.7-12.0 Neutrophils Auto (Bld) [#/Vo l]on 05-31-2024 Neutrophils (Bld) [#/Vol] Neutrophils [#/volume] in Blood by Automated count 1.4-6.5 Neutrophils/100 WBC Auto (Bl d)on 05-31-2024 Neutrophils/100 WBC (Bld) Automated neutrophil % 43.0-75.0 No Panel Informationon 02-06 -2025 C-Reactive Protein, Quantitative <0.50 mg/dL <=0.50 Eosinophils # (Auto) 0.1 10 3/uL 0.0-0.7 [facility] Immature Granulocyte # (Auto) 0.01 10 3/uL 0.00-0.03 Platelet mean volume Auto (B ld) [Entitic vol]on 05-31-2024 Platelet mean volume (Bld) [Entitic vol] Platelet mean volume [Entitic volume] in Blood by Automated count Low 9.5-13.5 Platelets Auto (Bld) [#/Vol] on 05-31-2024 Platelets (Bld) [#/Vol] Platelets [#/volume] in Blood by Automated count 150-450 RBC Auto (Bld) [#/Vol]on RBC (Bld) [#/Vol] Erythrocytes [#/volume] in Blood by Automated count 4.20-5.40 Basophils Auto (Bld) [#/Vol] on 12-27-2023 Basophils (Bld) [#/Vol] 0.1 10 3/uL 0.0-0.1 Basophils/100 WBC Auto (Bld) on 12-27-2023 Basophils/100 WBC (Bld) 1.0 % 0.2-2.0 Cholesterol in LDL Calc [Mas s/Vol]on 12-27-2023 Cholesterol in LDL [Mass/Vol] 63.0 mg/dL Comment on above: <100 mg/dl [id number] 0-129 mg/dl NEAR OR ABOVE DVEEOVE512-954 mg/dl BORDERLINE [id number] mg/dl HIGH>190 mg/dl VERY HIGH Cholesterol in VLDL Calc [Ma ss/Vol]on 12-27-2023 Cholesterol in VLDL [Mass/Vol] 45.8 mg/dL Eosinophils/100 WBC Auto (Bl d)on 12-27-2023 Eosinophils/100 WBC (Bld) 8.3 % High 0.9-7.0 Erythrocyte distribution wid th Auto (RBC) [Ratio]on 12-27-2023 Erythrocyte distribution width (RBC) [Ratio] 11.9 % 11.0-15.0 Estimated glomerular filtrat ion rate (GFR) non- Americanon 12-27-2023 GFR/1.73 sq M.predicted among non-blacks MDRD (S/P/Bld) [Vol rate/Area] 47 mL/min/{1.73_m2} Low >=60 Globulin Calc (S) [Mass/Vol] on 12-27-2023 Globulin (S) [Mass/Vol] 3.2 g/dL Glucose mean value [Mass/vol ume] in Blood Estimated from glycated hemoglobinon 12-27-2023 Average glucose Estimated from glycated hemoglobin (Bld) [Mass/Vol] 143 mg/dL Hematocrit Auto (Bld) [Volum e fraction]on 12-27-2023 Hematocrit (Bld) [Volume fraction] 39.7 % 36.0-48.0 Hemoglobin [Mass/volume] in Bloodon 12-27-2023 Hemoglobin (Bld) [Mass/Vol] 12.9 g/dL 12.0-16.0 Laboratory - Chemistry and C hemistry - challengeon 12-27-2023 Albumin [Mass/Vol] 3.7 g/dL 3.4-5.0 [facility] ALP [Catalytic activity/Vol] 61 U/L 46-116 ALT [Catalytic activity/Vol] 36 U/L 14-59 AST [Catalytic activity/Vol] 24 U/L 15-37 Bilirubin [Mass/Vol] 0.6 mg/dL 0.2-1.0 [facility] [place] Calcium [Mass/Vol] 9.2 mg/dL 8.5-10.1 [facility] Chloride [Moles/Vol] 101 mmol/L 98-107 [facility] [place] Cholesterol [Mass/Vol] 146 mg/dL <=200 [facility] Cholesterol in HDL [Mass/Vol] 38 mg/dL Low 40-60 Comment on above: > or =60 mg/dl - LOW CARDIOVASCULAR RISK<40 mg/dl - HIGH CARDIOVASCULAR RISK CO2 [Moles/Vol] 26.8 mmol/L 21.0-32.0 [facility] Creatinine [Mass/Vol] 1.17 mg/dL High 0.55-1.02 [facility] GFR/1.73 sq M.predicted MDRD (S/P/Bld) [Vol rate/Area] 56 mL/min/{1.73_m2} Low >=60 Glucose [Mass/Vol] 138 mg/dL High 74-106 [facility] Potassium [Moles/Vol] 4.5 mmol/L 3.5-5.1 [facility] Protein [Mass/Vol] 6.9 g/dL 6.4-8.2 [facility] Sodium [Moles/Vol] 138 mmol/L 136-145 [facility] Triglyceride [Mass/Vol] 229 mg/dL High <=150 TSH Qn 0.834 m[IU]/L 0.358-3.740 Urea nitrogen [Mass/Vol] 23.0 mg/dL High 7.0-18.0 Urea nitrogen/Creatinine [Mass ratio] 19.7 mg/mg Laboratory - Hematology and Cell countson 12-27-2023 HbA1c (Bld) [Mass fraction] 6.6 % High 4.5-6.2 Comment on above: ADA RECOMMENDED LIMI T 4.0 - 6.0ADA THERAPEUTIC TARGET < 7.0ACTION SUGGESTED> 7.0 Immature granulocytes/100 WBC (Bld) 0.4 % 0.0-0.5 Leukocytes [#/volume] correc chip for nucleated erythrocytes in Blood by Automated counon 12-27-2023 WBC corrected for nucl RBC Auto (Bld) [#/Vol] 5.2 10 3/uL 4.0-11.0 Lymphocytes Auto (Bld) [#/Vo l]on 12-27-2023 Lymphocytes (Bld) [#/Vol] 2.2 10 3/uL 1.2-3.8 Lymphocytes/100 WBC Auto (Bl d)on 12-27-2023 Lymphocytes/100 WBC (Bld) 42.1 % 20.5-60.0 MCH Auto (RBC) [Entitic mass ]on 12-27-2023 MCH (RBC) [Entitic mass] 28.5 pg 26.7-34.0 MCHC Auto (RBC) [Mass/Vol]on 12-27-2023 MCHC (RBC) [Mass/Vol] 32.5 g/dL 29.9-35.2 [facility] MCV Auto (RBC) [Entitic vol] on 12-27-2023 MCV (RBC) [Entitic vol] 87.8 fL 81.0-99.0 Monocytes Auto (Bld) [#/Vol] on 12-27-2023 Monocytes (Bld) [#/Vol] 0.3 10 3/uL 0.3-0.8 Monocytes/100 WBC Auto (Bld) on 12-27-2023 Monocytes/100 WBC (Bld) 6.4 % 1.7-12.0 Neutrophils Auto (Bld) [#/Vo l]on 12-27-2023 Neutrophils (Bld) [#/Vol] 2.2 10 3/uL 1.4-6.5 Neutrophils/100 WBC Auto (Bl d)on 12-27-2023 Neutrophils/100 WBC (Bld) 41.8 % Low 43.0-75.0 No Panel Informationon 12-26 Eosinophils # (Auto) 0.4 10 3/uL 0.0-0.7 [facility] Immature Granulocyte # (Auto) 0.02 10 3/uL 0.00-0.03 Platelet mean volume Auto (B ld) [Entitic vol]on 12-27-2023 Platelet mean volume (Bld) [Entitic vol] 9.6 fL 9.5-13.5 Platelets Auto (Bld) [#/Vol] on 12-27-2023 Platelets (Bld) [#/Vol] 190 10 3/uL 150-450 RBC Auto (Bld) [#/Vol]on RBC (Bld) [#/Vol] 4.52 10 6/uL 4.20-5.40 [facility] Serum or plasma albumin/glob ulin mass ratioon 12-27-2023 Albumin/Globulin [Mass ratio] 1.2 {ratio} Serum or plasma anion gap de terminationon 12-27-2023 Anion gap [Moles/Vol] 14.7 mmol/L [facility] Serum or plasma total choles terol/high density lipoprotein (HDL) cholesterol mass desiree 12-27-2023 Cholesterol.total/Chol esterol in HDL [Mass ratio] 3.8 {ratio} Comment on above: 3.3 - 4.4 LOW [...] QUISPE Date: 2022-08-24 07:19 Normal [facility] CBC AUTO DIFFon 03-30-2022 BASO # 0.0 103/ul Normal 0.0-0.1 [facility] Comment on above: Performed By: #### C BC #### [facility] [address] [place] [address] Dr. Rc Foster Basophils/100 WBC (Bld) 0.4 % Normal 0.2-2.0 [facility] Comment on above: Performed By: #### C BC #### [facility] [address] [place] [address] Dr. Rc Foster EO # 0.3 103/ul Normal 0.0-0.7 [facility] Comment on above: Performed By: #### C BC #### [facility] [address] [place] [address] Dr. Rc Foster Eosinophils/100 WBC (Bld) 4.9 % Normal 0.9-7.0 [facility] Comment on above: Performed By: #### C BC #### [facility] [address] [place] [address] Dr. Rc Foster Erythrocyte distribution width (RBC) [Ratio] 12.2 % Normal 11.0-15.0 [facility] Comment on above: Performed By: #### C BC #### [facility] [address] [place] [address] Dr. Rc Foster Hematocrit (Bld) [Volume fraction] 39.8 % Normal 36.0-48.0 [facility] Comment on above: Performed By: #### C BC #### [facility] [address] [place] [address] Dr. Rc Foster Hemoglobin (Bld) [Mass/Vol] 13.1 g/dL Normal 12.0-16.0 [facility] Comment on above: Performed By: #### C BC #### [facility] [address] [place] [address] Dr. Rc Foster IG # 0.02 10e3/ul Normal 0.00-0.03 [facility] Comment on above: Performed By: #### C BC #### [facility] [address] [place] [address] Dr. Rc Foster IG % 0.4 % Normal 0.0-0.5 [facility] Comment on above: Performed By: #### C BC #### [facility] [address] [place] [address] Dr. Rc Foster LYMPH # 2.1 103/ul Normal 1.2-3.8 [facility] Comment on above: Performed By: #### C BC #### [facility] [address] [place] [address] Dr. Rc Foster Lymphocytes/100 WBC (Bld) 37.1 % Normal 20.5-60.0 [facility] Comment on above: Performed By: #### C BC #### [facility] [address] [place] [address] Dr. Rc Foster MANUAL DIFF REQ NO Normal [facility] Comment on above: Performed By: #### C BC #### [facility] [address] [place] [address] Dr. Rc Foster MCH (RBC) [Entitic mass] 28.7 pg Normal 26.7-34.0 [facility] Comment on above: Performed By: #### C BC #### [facility] [address] [place] [address] Dr. Rc Foster MCHC (RBC) [Mass/Vol] 32.9 g/dL Normal 29.9-35.2 [facility] Comment on above: Performed By: #### C BC #### [facility] [address] [place] [address] Dr. Rc Foster MCV (RBC) [Entitic vol] 87.1 fL Normal 81.0-99.0 [facility] Comment on above: Performed By: #### C BC #### [facility] [address] [place] [address] Dr. Rc Foster MONO # 0.4 103/ul Normal 0.3-0.8 [facility] Comment on above: Performed By: #### C BC #### [facility] [address] [place] [address] Dr. Rc Foster Monocytes/100 WBC (Bld) 6.7 % Normal 1.7-12.0 [facility] Comment on above: Performed By: #### C BC #### [facility] [address] [address] [address] Rc Foster NEUT # 2.9 103/ul Normal 1.4-6.5 [facility] Comment on above: Performed By: #### C BC #### [facility] [address] [address] [address] Rc Foster Neutrophils/100 WBC (Bld) 50.5 % Normal 43.0-75.0 [facility] Comment on above: Performed By: #### C BC #### [facility] [address] [address] [address] Rc Foster Platelet mean volume (Bld) [Entitic vol] 9.7 fL Normal 9.5-13.5 [facility] Comment on above: Performed By: #### C BC #### [facility] [address] [place] [address] Dr. Rc Foster PLT 189 103/ul Normal 150-450 [facility] Comment on above: Performed By: #### C BC #### [facility] [address] [place] [address] Dr. Rc Foster RBC 4.57 106/ul Normal 4.20-5.40 [facility] Comment on above: Performed By: #### C BC #### [facility] [address] [place] [address] Dr. Rc Foster WBC 5.7 103/ul Normal 4.0-11.0 [facility] Comment on above: Performed By: #### C BC #### [facility] [address] [place] [address] Dr. Rc Foster GLYCOHEMOGLOBIN A1Con 2021 ADA RECOMMENDATION SEE BELOW Normal [facility] Comment on above: Result Comment: ADA RECOMMENDED LIMIT 4.0 - 6.0 ADA THERAPEUTIC TARGET < 7.0 ACTION SUGGESTED > 7.0 Performed By: #### A 1C #### [facility] [address] [place] [address] Dr. Rc Foster Glucose [Mass/Vol] 143 mg/dL Normal [facility] Comment on above: Performed By: #### A 1C #### [facility] [address] [place], [place] [address] Dr. Rc Foster HbA1c (Bld) [Mass fraction] 6.6 % Critically high 4.5-6.2 [facility] Comment on above: Performed By: #### A 1C #### [facility] [address] [place], [place] [address] Dr. Rc Foster LIPID PROFILEon 03-30-2022 CHOL-HDL RATIO NORM SEE BELOW Normal [facility] Comment on above: Result Comment: 3.3 - 4.4 LOW RISK 4.4 - 7.1 AVERAGE RISK 7.1 - 11.0 MODERATE RISK >11.0 HIGH RISK Performed By: #### T MARY JANE, CMP, LIPID ####[facility] [address] [place], [place] [address]RiRodger Foster Cholesterol [Mass/Vol] 184 mg/dL Normal <=200 [facility] Comment on above: Performed By: #### T MARY JANE, CMP, LIPID ####[facility] [address] [place], [place] [address]QuRodger Foster Cholesterol in HDL [Mass/Vol] 42 mg/dL Normal 40-60 [facility] Comment on above: Performed By: #### T MARY JANE, CMP, LIPID ####[facility] [address] [place], [place] [address]Zi. Rc Foster Cholesterol in LDL [Mass/Vol] 87.0 mg/dL Normal [facility] Comment on above: Performed By: #### T MARY JANE, CMP, LIPID ####[facility] [address] [place], [place] [address]ZoRodger Foster Cholesterol.total/Chol esterol in HDL [Mass ratio] 4.4 {ratio} Normal [facility] Comment on above: Performed By: #### T MARY JANE, CMP, LIPID ####[facility] [address] [place], [place] [address]DwRodger Foster HDL NORMAL > or = 60 mg/dl - LO W CARDIOVASCULAR RISK <40 mg/dl - HIGH CARDIOVASCULAR RISK Normal [facility] Comment on above: Performed By: #### T SH, CMP, LIPID ####[facility] [address] [place] [address]Dr. Rc Foster LDL CALC NORMAL SEE BELOW Normal [facility] Comment on above: Result Comment: <100 mg/dl OPTIMAL 100 - 129 mg/dl NEAR OR ABOVE OPTIMAL 130 - 159 mg/dl BORDERLINE HIGH 160 - 189 mg/dl HIGH >190 mg/dl VERY HIGH Performed By: #### T SH, CMP, LIPID ####[facility] [address] [place] [address]Dr. Rc Foster Triglyceride [Mass/Vol] 275 mg/dL Critically high <=150 [facility] Comment on above: Performed By: #### T MARY JANE, CMP, LIPID ####[facility] [address] [place] [address]Dr. Rc Foster VLDL CALC 55.0 mg/dL Normal [facility] Comment on above: Performed By: #### T MARY JANE, CMP, LIPID ####[facility] [address] [place] [address]Dr. Rc Foster PROF 14(COMP METB)on 022 Albumin [Mass/Vol] 4.0 g/dL Normal 3.4-5.0 [facility] Comment on above: Performed By: #### T MARY JANE, CMP, LIPID ####[facility] [address] [place] [address]Dr. Rc Foster Albumin/Globulin [Mass ratio] 1.1 {ratio} Normal [facility] Comment on above: Performed By: #### T MARY JANE, CMP, LIPID ####[facility] [address] [place] [address]Dr. Rc Foster ALP [Catalytic activity/Vol] 71 U/L Normal 46-116 [facility] Comment on above: Performed By: #### T SH, CMP, LIPID ####[facility] [address] [place] [address]Dr. Rc Foster ALT [Catalytic activity/Vol] 29 U/L Normal 14-59 [facility] Comment on above: Performed By: #### T SH, CMP, LIPID ####[facility] [address] [place] [id number]. Rc Foster Anion gap [Moles/Vol] 13.2 mmol/L Normal [facility] Comment on above: Performed By: #### T SH, CMP, LIPID ####[facility] [address] [place] [id number]. Rc Foster AST [Catalytic activity/Vol] 17 U/L Normal 15-37 [facility] Comment on above: Performed By: #### T SH, CMP, LIPID ####[facility] [address] [place] [id number]. Rc Foster Bilirubin [Mass/Vol] 0.6 mg/dL Normal 0.2-1.0 [facility] Comment on above: Performed By: #### T SH, CMP, LIPID ####[facility] [address] [place] [address]Dr. Rc Foster Calcium [Mass/Vol] 9.0 mg/dL Normal 8.5-10.1 [facility] Comment on above: Performed By: #### T SH, CMP, LIPID ####[facility] [address] [place] [id number]. Rc Foster Chloride [Moles/Vol] 102 mmol/L Normal 98-107 [facility] Comment on above: Performed By: #### T SH, CMP, LIPID ####[facility] [address] [place] [id number]. Rc Foster CO2 [Moles/Vol] 27.3 mmol/L Normal 21.0-32.0 [facility] Comment on above: Performed By: #### T SH, CMP, LIPID ####[facility] [address] [place] [id number]. Rc Foster Creatinine [Mass/Vol] 1.00 mg/dL Normal 0.55-1.02 [facility] Comment on above: Performed By: #### T SH, CMP, LIPID ####[facility] [address] [place] [id number]. Rc Foster EGFR-AF NIUEAN >60 Normal >=60 [facility] Comment on above: Performed By: #### T SH, CMP, LIPID ####[facility] [address] [place] [address]Dr. Rc Foster EGFR-NON AF NIUEAN 56 mL/min/1.73m2 Critically low >=60 [facility] Comment on above: Performed By: #### T SH, CMP, LIPID ####[facility] [address] [place] [address]Dr. Rc Foster Globulin (S) [Mass/Vol] 3.5 g/dL Normal [facility] Comment on above: Performed By: #### T SH, CMP, LIPID ####[facility] [address] [place] [address]Dr. Rc Foster Glucose [Mass/Vol] 159 mg/dL Critically high 74-106 [facility] Comment on above: Performed By: #### T SH, CMP, LIPID ####[facility] [address] [place] [address]Dr. Rc Foster Potassium [Moles/Vol] 4.5 mmol/L Normal 3.5-5.1 [facility] Comment on above: Performed By: #### T SH, CMP, LIPID ####[facility] [address] [place], [place] [address]Dr. Rc Foster Protein [Mass/Vol] 7.5 g/dL Normal 6.4-8.2 [facility] Comment on above: Performed By: #### T SH, CMP, LIPID ####[facility] [address] [place] [address]Dr. Rc Foster Sodium [Moles/Vol] 138 mmol/L Normal 136-145 [facility] Comment on above: Performed By: #### T SH, CMP, LIPID ####[facility] [address] [place] [address]Dr. Rc Foster Urea nitrogen [Mass/Vol] 23.0 mg/dL Critically high 7.0-18.0 [facility] Comment on above: Performed By: #### T SH, CMP, LIPID ####[facility] [address] [place], [place] [address]Ks. Rc Foster Urea nitrogen/Creatinine [Mass ratio] 23.0 mg/mg Normal [facility] Comment on above: Performed By: #### T MARY JANE, CMP, LIPID ####[facility] [address] [place], [place] [address]Cl. Rc Foster TSHon 03-30-2022 TSH 2.807 uIU/mL Normal 0.358-3.740 [facility] Comment on above: Performed By: #### T SH, CMP, LIPID ####[facility] [address] [place], [place] [address]Zj. Rc Foster US THYROIDon 03-30-2022 US THYROID [...] BERNY QUISPE Date: 2022-03-30 11:03 Normal [facility] MG MAMM SCREEN 3D LEX CADon 03-19-2022 MG MAMM SCREEN 3D LEX CAD Patient: CARROLL FUENTES Exam Date: 03/19/2022 : 1960 Gender:F Ordering : DR ORBERT VILLASENOR D.O. Admission #: [id number] Family : Order #: [id number] CLICK HERE TO VIEW EXAM RADIOLOGY REPORT [...] None Family Cancers None LOCATION: [facility] BREAST COMPOSITION: Scattered areas fibroglandular density. [...] M.D. on 03/23/2022 at 11:59 Normal [facility] CBC AUTO DIFFon 11-27-2021 BASO # 0.0 103/ul Normal 0.0-0.1 [facility] Comment on above: Performed By: #### C BC #### [facility] [address] [address] [address] Rc Foster Basophils/100 WBC (Bld) 0.7 % Normal 0.2-2.0 [facility] Comment on above: Performed By: #### C BC #### [facility] [address] [address] [address] Rc Foster EO # 0.6 103/ul Normal 0.0-0.7 [facility] Comment on above: Performed By: #### C BC #### [facility] [address] [address] [address] Rc Foster Eosinophils/100 WBC (Bld) 10.3 % Critically high 0.9-7.0 [facility] Comment on above: Performed By: #### C BC #### [facility] [address] [place] [address] Dr. Rc Foster Erythrocyte distribution width (RBC) [Ratio] 12.4 % Normal 11.0-15.0 [facility] Comment on above: Performed By: #### C BC #### [facility] [address] [place] [address] Dr. Rc Foster Hematocrit (Bld) [Volume fraction] 41.2 % Normal 36.0-48.0 [facility] Comment on above: Performed By: #### C BC #### [facility] [address] [place] [address] Dr. Rc Foster Hemoglobin (Bld) [Mass/Vol] 13.4 g/dL Normal 12.0-16.0 [facility] Comment on above: Performed By: #### C BC #### [facility] [address] [place] [address] Dr. Rc Foster IG # 0.01 10e3/ul Normal 0.00-0.03 [facility] Comment on above: Performed By: #### C BC #### [facility] [address] [place] [address] Dr. Rc Foster IG % 0.2 % Normal 0.0-0.5 [facility] Comment on above: Performed By: #### C BC #### [facility] [address] [place] [address] Dr. Rc Foster LYMPH # 2.3 103/ul Normal 1.2-3.8 [facility] Comment on above: Performed By: #### C BC #### [facility] [address] [place] [address] Dr. Rc Foster Lymphocytes/100 WBC (Bld) 40.6 % Normal 20.5-60.0 [facility] Comment on above: Performed By: #### C BC #### [facility] [address] [place] [address] Dr. Rc Foster MANUAL DIFF REQ NO Normal [facility] Comment on above: Performed By: #### C BC #### [facility] [address] [address] [address] Rc Foster MCH (RBC) [Entitic mass] 28.8 pg Normal 26.7-34.0 [facility] Comment on above: Performed By: #### C BC #### [facility] [address] [place] [address] Dr. Rc Foster MCHC (RBC) [Mass/Vol] 32.5 g/dL Normal 29.9-35.2 [facility] Comment on above: Performed By: #### C BC #### [facility] [address] [place] [address] Dr. Rc Foster MCV (RBC) [Entitic vol] 88.6 fL Normal 81.0-99.0 [facility] Comment on above: Performed By: #### C BC #### [facility] [address] [place] [address] Dr. Rc Foster MONO # 0.4 103/ul Normal 0.3-0.8 [facility] Comment on above: Performed By: #### C BC #### [facility] [address] [place] [address] Dr. Rc Foster Monocytes/100 WBC (Bld) 7.6 % Normal 1.7-12.0 [facility] Comment on above: Performed By: #### C BC #### [facility] [address] [place] [address] Dr. Rc Foster NEUT # 2.3 103/ul Normal 1.4-6.5 [facility] Comment on above: Performed By: #### C BC #### [facility] [address] [place] [address] Dr. Rc Foster Neutrophils/100 WBC (Bld) 40.6 % Critically low 43.0-75.0 [facility] Comment on above: Performed By: #### C BC #### [facility] [address] [place] [address] Dr. Rc Foster Platelet mean volume (Bld) [Entitic vol] 9.6 fL Normal 9.5-13.5 [facility] Comment on above: Performed By: #### C BC #### [facility] [address] [address] [address] Rc Foster PLT 194 103/ul Normal 150-450 [facility] Comment on above: Performed By: #### C BC #### [facility] [address] [address] [address] Rc Foster RBC 4.65 106/ul Normal 4.20-5.40 [facility] Comment on above: Performed By: #### C BC #### [facility] [address] [address] [address] Rc Foster WBC 5.5 103/ul Normal 4.0-11.0 [facility] Comment on above: Performed By: #### C BC #### [facility] [address] [place] [address] Dr. Rc Foster GLYCOHEMOGLOBIN A1Con 2021 ADA RECOMMENDATION SEE BELOW Normal [facility] Comment on above: Result Comment: ADA RECOMMENDED LIMIT 4.0 - 6.0 ADA THERAPEUTIC TARGET < 7.0 ACTION SUGGESTED > 7.0 Performed By: #### A 1C #### [facility] [address] [place] [address] Dr. Rc Foster Glucose [Mass/Vol] 131 mg/dL Normal [facility] Comment on above: Performed By: #### A 1C #### [facility] [address] [place] [address] Dr. Rc Foster HbA1c (Bld) [Mass fraction] 6.2 % Normal 4.5-6.2 [facility] Comment on above: Performed By: #### A 1C #### [facility] [address] [place] [address] Dr. Rc Foster PROF CHEM 8 (BAS METB)on Anion gap [Moles/Vol] 15.2 mmol/L Normal [facility] Comment on above: Performed By: #### T SH, BMP #### [facility] [address] [place] [address] Dr. Rc Foster Calcium [Mass/Vol] 8.5 mg/dL Normal 8.5-10.1 [facility] Comment on above: Performed By: #### T SH, BMP #### [facility] [address] [address] [address] Rc Foster Chloride [Moles/Vol] 100 mmol/L Normal 98-107 [facility] Comment on above: Performed By: #### T SH, BMP #### [facility] [address] [address] [address] Rc Foster CO2 [Moles/Vol] 26.6 mmol/L Normal 21.0-32.0 [facility] Comment on above: Performed By: #### T SH, BMP #### [facility] [address] [address] [address] Rc Foster Creatinine [Mass/Vol] 1.15 mg/dL Critically high 0.55-1.02 [facility] Comment on above: Performed By: #### T SH, BMP #### [facility] [address] [place] [address] Dr. Rc Foster EGFR-AF NIUEAN 58 mL/min/1.73m2 Critically low >=60 [facility] Comment on above: Performed By: #### T SH, BMP #### [facility] [address] [place] [address] Dr. Rc Foster EGFR-NON AF NIUEAN 48 mL/min/1.73m2 Critically low >=60 [facility] Comment on above: Performed By: #### T SH, BMP #### [facility] [address] [address] [address] Rc Foster Glucose [Mass/Vol] 211 mg/dL Critically high 74-106 [facility] Comment on above: Performed By: #### T SH, BMP #### [facility] [address] [address] [address] Rc Foster Potassium [Moles/Vol] 4.8 mmol/L Normal 3.5-5.1 [facility] Comment on above: Performed By: #### T SH, BMP #### [facility] [address] [address] [address] Rc Foster Sodium [Moles/Vol] 137 mmol/L Normal 136-145 [facility] Comment on above: Performed By: #### T SH, BMP #### [facility] [address] [address] [address] Rc Foster Urea nitrogen [Mass/Vol] 33.0 mg/dL Critically high 7.0-18.0 [facility] Comment on above: Performed By: #### T SH, BMP #### [facility] [address] [address] [address] Rc Foster Urea nitrogen/Creatinine [Mass ratio] 28.7 mg/mg Normal [facility] Comment on above: Performed By: #### T SH, BMP #### [facility] [address] [address] [address] Rc Foster TSHon 11-27-2021 TSH 0.744 uIU/mL Normal 0.358-3.740 [facility] Comment on above: Performed By: #### T SH, BMP #### [facility] [address] [address] [address] Rc Foster SYMPTOMATIC COVID-19 ANTIGEN on 10-28-2021 EUA Statement SEE BELOW Normal [facility] Comment on above: Result Comment: [...] sooner. Performed By: #### C VDAGS ####[facility] [id number] [id number][address] Rc Foster SARS-CoV-2 (COVID-19) RNA YARED+probe Ql (Unsp spec) Negative Normal NEGATIVE [facility] Comment on above: Performed By: #### C VDAGS ####[facility] [address] [place], [place] [address]EjDr. Rc Foster GLYCOHEMOGLOBIN A1Con 2021 ADA RECOMMENDATION SEE BELOW Normal [facility] Comment on above: Result Comment: ADA RECOMMENDED LIMIT 4.0 - 6.0 ADA THERAPEUTIC TARGET < 7.0 ACTION SUGGESTED > 7.0 Performed By: #### A 1C #### [facility] [address] [address] [address] Rc Foster Glucose [Mass/Vol] 128 mg/dL Normal [facility] Comment on above: Performed By: #### A 1C #### [facility] [address] [address] [address] Rc Foster HbA1c (Bld) [Mass fraction] 6.1 % Normal 4.5-6.2 [facility] Comment on above: Performed By: #### A 1C #### [facility] [address] [address] [address] Rc Foster Discharge CCD Assessmenton 0 09-06-2020 Discharge CCD Assessment [facility] Patient: CARROLL FUENTES [address] [place] [address] MR#: [id number] DISCHARGE CCD ASSESSMENT : 58 Service Date: 09/06/20 1018 Discharge CCD Assessment Assessment Patient discharged home to continue exercises, pain medication, and wound care Electronically Signed eSign Date and Time Melyssa Flores 09/06/20 1019 Tera Hernandez MD Normal [facility] GLUCOSE METERon 09-06-2020 Glucose [Mass/Vol] 126 mg/dL High 70-99 [facility] Comment on above: Order Comment: CONSE RVATION Result Comment: Fast ing GLUCOSE reference range has been updated per (ADA) [place] Diabetes Association's recommendation. 07/18/2018 Performed By: #### L 500.35553 ####Test performed at: [address] [address] Glucose [Mass/Vol] 205 mg/dL High 70-99 [facility] Comment on above: Order Comment: CONSE RVATION Result Comment: Fast ing GLUCOSE reference range has been updated per (ADA) [place] Diabetes Association's recommendation. 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 S/P cervical [...] RES, Katarzyn a MD 09/06/20 1134 Normal [facility] Orthopedic Progress Noteon 0 09-06-2020 Orthopedic Progress Note [facility] Patient: CARROLL FUENTES [address] [place] [address] MR#: [id number] PROGRESS NOTE - Orthopedic : 58 Service [...] 96 09/06 0620 O2 Delivery ROOM AIR 09/07 619 Temp [...] 09/06/20 1022 Tera Hernandez MD Normal [facility] Anesthesia Noteon 09-05-2020 Anesthesia Note [facility] Patient: CARROLL FUENTES [address] [place] [address] MR#: [id number] ANESTHESIA NOTE : Service Date: 09/05/20 0812 [...] Signed eSign Date and Time Krystian Akers SALES OUTFITTER-PRODUCTION EXPEDITER 09/05/20 0813 Chu Glez MD Normal [facility] BASIC MET PANELon 05-14-2021 Anion gap [Moles/Vol] 12 mmol/L Normal 6-18 [facility] Comment on above: Performed By: #### L 500.98071, L500.35414 #### Test performed at: [address] [address] Calcium [Mass/Vol] 8.7 mg/dL Normal 8.5-10.1 [facility] Comment on above: Performed By: #### L 500.72804, L500.94420 #### Test performed at: [address] [address] Chloride [Moles/Vol] 101 mmol/L Normal 98-107 [facility] Comment on above: Performed By: #### L 500.77215, L500.97437 #### Test performed at: [address] [address] CO2 [Moles/Vol] 25 mmol/L Normal 21-32 [facility] Comment on above: Performed By: #### L 500.94549, L500.49823 #### Test performed at: [address] [address] Creatinine [Mass/Vol] 1.020 mg/dL Normal 0.550-1.020 [facility] Comment on above: Performed By: #### L 500.44051, L500.85652 #### Test performed at: [address] [address] Glucose [Mass/Vol] 264 mg/dL High 70-99 [facility] Comment on above: Result Comment: Fast ing GLUCOSE reference range has been updated per (ADA) [place] Diabetes Association's recommendation. 07/18/2018 Performed By: #### L 500.89740, L500.20254 #### Test performed at: [address] [address] OSM 289 mosm/kg Normal 270-300 [facility] Comment on above: Performed By: #### L 500.55670, L500.02759 #### Test performed at: [address] [address] Potassium [Moles/Vol] 4.5 mmol/L Normal 3.5-5.1 [facility] Comment on above: Performed By: #### L 500.87114, L500.76108 #### Test performed at: [address] [address] Sodium [Moles/Vol] 134 mmol/L Low 136-145 [facility] Comment on above: Performed By: #### L 500.85743, L500.28162 #### Test performed at: [address] [address] Urea nitrogen [Mass/Vol] 17 mg/dL Normal 7-18 [facility] Comment on above: Performed By: #### L 500.44801, L500.21014 #### Test performed at: [address] [address] GFR ESTIMATEon 09-05-2020 IF AMER > 60 Normal > 60 [facility] Comment on above: Result Comment: eGFR (Estimated GFR) Units of measure:mL/min/1.73 meters sq. *CALCULATION REVISED 02/11/2015;IDMS-traceable MDRD equation eGFR is derived from the reexpressed MDRD Study equation using the following parameters: serum creatinine, age, gender and race. An eGFR<60 mL/min/1.73m2 for >3 months is consistent with chronic kidney disease. Refer to KDOQI guidelines for clinical interpretation. Performed By: #### L 500.06761, L500.53871 #### Test performed at: [address] [address] IF non-AFR AMER 55 Low > 60 [facility] Comment on above: Performed By: #### L 500.05997, L500.95233 #### Test performed at: [address] [address] GLUCOSE METERon 09-05-2020 Glucose [Mass/Vol] 177 mg/dL High 70-99 [facility] Comment on above: Order Comment: CONSE RVATION Result Comment: Fast ing GLUCOSE reference range has been updated per (ADA) [place] Diabetes Association's recommendation. 07/18/2018 Performed By: #### L 500.03930 #### Test performed at: [address] [address] Glucose [Mass/Vol] 310 mg/dL High 70-99 [facility] Comment on above: Result Comment: Fast ing GLUCOSE reference range has been updated per (ADA) [place] Diabetes Association's recommendation. 07/18/2018 Insulin per sl scale Performed By: #### L 500.74063 ####Test performed at: [address] [address] Glucose [Mass/Vol] 281 mg/dL High 70-99 [facility] Comment on above: Result Comment: Fast ing GLUCOSE reference range has been updated per (ADA) [place] Diabetes Association's recommendation. 07/18/2018 Insulin per sl scale Performed By: #### L 500.94845 #### Test performed at: [address] [address] Glucose [Mass/Vol] 105 mg/dL High 70-99 [facility] Comment on above: Result Comment: Fast ing GLUCOSE reference range has been updated per (ADA) [place] Diabetes Association's recommendation. 07/18/2018 Performed By: #### L 500.21095 #### Test performed at: [address] [address] HGB AND HCTon 09-05-2020 Hematocrit (Bld) [Volume fraction] 37.5 % Normal 36.0-48.0 [facility] Comment on above: Performed By: #### L 200.87159 #### Test performed at: [address] [address] Hemoglobin (Bld) [Mass/Vol] 12.5 g/dL Normal 12.0-15.0 [facility] Comment on above: Performed By: #### L 200.50229 #### Test performed at: [address] [address] Internal Med Progress Noteon 09-05-2020 Internal Med Progress Note [facility] Patient: CARROLL FUENTES [address] [place] [address] MR#: [id number] PROGRESS NOTE - Internal Medicine : 58 [...] Pulse 84 09/05 0855 Pulse Ox 96 05/14 0635 O2 Delivery ROOM AIR 09/05 0635 [...] 12.5 Hct (36.0 - 48.0 %) 37.5 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 S/P cervical [...] Disc (more content not included)... Normal [facility] OT Therapy Recommendationson 09-05-2020 OT Therapy Recommendations [facility] Patient: CARROLL FUENTES [address] [place] [address] MR#: [id number] OT THERAPY RECOMMENDATIONS : 58 Service Date: 09/05/20 151 Therapy Recommendations Therapy Recommendations Recommendations OT evaluation completed. OT recommends HOME with FAmily assist. No further acute OT needs are indicated at this time. Electronically Signed eSign Date and Time Trupti Rojas OT 09/05/20 151 Normal [facility] Orthopedic Progress Noteon 0 09-05-2020 Orthopedic Progress Note [facility] Patient: CARROLL FUENTES [address] [place] [address] MR#: [id number] PROGRESS NOTE - Orthopedic : 58 Service [...] 09/05/20 1429 Tera Hernandez MD Normal [facility] PT Therapy Recommendationson 09-05-2020 PT Therapy Recommendations [facility] Patient: CARROLL FUENTES [address] [place] [address] MR#: [id number] PT THERAPY RECOMMENDATIONS : 58 Service Date: 05/14/21 0914 Therapy Recommendations Therapy Recommendations Recommendations PT eval complete. No further acute PT needs. Recommend d/c home /c family assist. Electronically Signed eSign Date and Time Tiffanie Bashir PT 09/05/20 0914 Normal [facility] z OT Inpatient Discharge Not juan 09-05-2020 z OT Inpatient Discharge Note [facility] Patient: CARROLL FUENTES [address] [place], [place] [id number] MR#: [id number] OT INPATIENT DISCHARGE NOTE : 58 Service [...] Trupti Rojas OT 09/05/20 1534 Normal [facility] z OT Inpatient Evaluationon 09-05-2020 z OT Inpatient Evaluation [facility] Patient: CARROLL FUENTES [address] [id number] MR#: [id number] OT INPATIENT EVALUATION : 58 Inpatient OT HPI Date of Service 09/05/20 Time In: 1401 Time Out: 1412 Total Treatment Time (Mins) 11 Visit Reason LATERAL RECESS STENOSIS W/ RADICULOPATHY Surgery Type/Date s/p L L4-5 LAmi, foraminotomy, decompression on 09.04.20/ Lumbar spine precautions Referral Date 09/04/20 Tx Diagnosis: LOW BACK PAIN Insurance Name [employer] [facility] POS [facility] Hospital Course Pt is a left hand [...] 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 Objective Precautions Lumbar [...] Nader (more content not included)... Normal [facility] z PT Inpatient Discharge Not juan 09-05-2020 z PT Inpatient Discharge Note [facility] Patient: CARROLL FUENTES [address] [place] [address] MR#: [id number] PT INPATIENT DISCHARGE NOTE : 58 Service [...] Tiffanie Bashir PT 09/05/20 1139 Normal [facility] z PT Inpatient Evaluationon 09-05-2020 z PT Inpatient Evaluation [facility] Patient: CARROLL FUENTES [address] [place], [place] [address] MR#: [id number] PT INPATIENT EVALUATION : 58 Service Date: 09/05/20 0928 Inpatient PT HPI Date of Service 09/05/20 Time In: 0845 Time Out: 0907 Total Treatment Time (Mins) 22 Room Number 624 Visit Reason LATERAL RECESS STENOSIS W/ RADICULOPATHY Surgery Type: L L4-5 lami, foraminotomy, decompression Surgery Date: 09/04/20 Referral Date 09/04/20 Tx Diagnosis: LOW BACK PAIN Insurance Name RAMIRO VERASO POS [facility] Hospital Course 60 y.o [place] [...] posture. 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 Pt agreeable to use of her cane [...] Tiffanie Bashir PT 09/05/20 1502 Normal [facility] GLUCOSE METERon 09-04-2020 Glucose [Mass/Vol] 94 mg/dL Normal 70-99 [facility] Comment on above: Result Comment: Fast ing GLUCOSE reference range has been updated per (ADA) [place] Diabetes Association's recommendation. 07/18/2018 Performed By: #### L 500.30934 ####Test performed at: [address] [address] Internal Medicine Consultati onon 09-04-2020 Internal Medicine Consultation [facility] Patient: CARROLL FUENTES [address] [place] [address] MR#: [id number] CONSULTATION - Internal Medicine : 58 Service Date: 09/04/20 1543 History of Present Illness Referring Physician Tera [...] Entered as Reported by RAISA CABELLO on 05/13/21 1051 Last Action: Reviewed on 09/04/20 105 [...] Systems (more content not included)... Normal [facility] OPERATIVE REPORTon OPERATIVE REPORT NAME: CARROLL FUENTES MR#: [id number] SURGEON: Tera Hernandez MD DATE OF SURGERY: [...] there were no complications. TERA HERNANDEZ MD [facility] PT NAME: CARROLL FUENTES MR#: [id number] [address] [place] [address] ACCT: [id number] : 58 OPERATIVE REPORT JFS/[id number] E/S: Tera Hernandez MD 09/18/20 1207 Electronically Signed [facility] PT NAME: CARROLL FUENTES MR#: [id number] [address] [place] [address] ACCT: [id number] : 58 OPERATIVE REPORT Normal [facility] Primary Residenton 1 Primary Resident [facility] Pt Name: CARROLL FUENTES MR#: [id number] [address] [place] [address] ACCT: [id number] [address] [id number] : 58 Service Date: 09/04/20 1603 Primary Resident/Call Primary Resident: [id number] After Hours Call: [phone] Red Team Electronically Signed eSign Date and Time Ana Flanagan RES 09/16/20 1521 Normal [facility] LUMBAR SPINE 2 OR 3 VIEWSon 09-03-2020 LUMBAR SPINE 2 OR 3 VIEWS STUDY: LUMBAR SPINE 2 OR 3 VIEWS; 09/04/2020 2:57 pm INDICATION: LEFT L4-L5 LAMINECTOMY,FORAMINOTO MY,DECOMPRESSION. COMPARISON: None. ACCESSION NUMBER(S): [id number] ORDERING CLINICIAN: Tera Hernandez FINDINGS: Intraoperative fluoroscopy of the lumbar spine demonstrates surgical instruments posterior to L5. IMPRESSION: As above Normal [facility] CHEST PA/AP & LATERALon CHEST PA/AP & LATERAL STUDY: CHEST PA/AP LATERAL; 08/25/2020 11:00 am INDICATION: SOB/PAT. COMPARISON: None. ACCESSION NUMBER(S): [id number] ORDERING CLINICIAN: Madelyn Leone FINDINGS: The lungs are clear without pleural effusion. Normal heart size, mediastinum, elzbieta, and pulmonary vasculature. IMPRESSION: No active disease in the chest. Normal [facility] CONSULTATION REPORTon 2020 CONSULTATION REPORT NAME: CARROLL FUENTES MR#: [id number] MOLD CAPPER HELPER: Madelyn Leone MD DATE OF CONSULTATION: 08/25/2020 [...] pulse ox is 98% on room air. [facility] PT NAME: CARROLL FUENTES MR#: [id number] [address] [place] [address] ACCT: [id number] : 58 CONSULTATION HEENT: Atraumatic head. 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 IMPRESSION: 1. Preop clearance for L4-L5 disk [...] courtesy of this consultation. MADELYN LEONE MD MS/MODL/[id number] E/S: Madelyn Leone MD 08/26/20 0220 Electronically Signed [facility] PT NAME: CARROLL FUENTES MR#: [id number] [address] [place] [address] ACCT: [id number] : 58 CONSULTATION Normal [facility] LUMB SP COMP W FLEX/EXT 6 VW S>on 08-08-2020 LUMB SP COMP W FLEX/EXT 6 VWS> STUDY: LUMB SP COMP W FLEX/EXT 6 VWS>; 08/08/2020 9:43 am INDICATION: BACK PAIN. COMPARISON: No available comparisons. ACCESSION NUMBER(S): [id number] ORDERING CLINICIAN: Tera Hernandez TECHNIQUE: 6 views [...] level. No evidence of instability.. Normal [facility] XR SHLDR >/=3V AP/RUSH AP/OTH R RTon 07-03-2018 XR SHLDR >/=3V AP/RUSH AP/OTHR RT * * *Final Report* * * DATE OF EXAM: Jul 03 2018 9:32AM HMX 5253 - XR SHLDR >/=3V AP/URSH AP/OTHR RT / PROCEDURE REASON: Glenohumeral arthritis, [...] on Jul 03 2018 10:17AM EST [id number] [facility] ANES Holly 06-20-2018 ANES POST HNO ID: [id number] Author: Rohit Velarde Service: Anesthesiology Author Type: [...] 2018 TIME: 2:38 PM PAGER/CONTACT #: [facility] ANES PREOPon 06-20-2018 ANES PREOP HNO ID: [id number] Author: Rohit Velarde Service: Anesthesiology Author Type: [...] June 20, 2018 TIME: 9:35 AM CSN: [id number] [facility] BRIEF OP NOTon 06-20-2018 BRIEF OP NOT HNO ID: [id number] Author: Kusum Francisco Service: Orthopaedic Surgery Author Type: Resident Type: Brief Op Note Filed: 06/20/2018 5:49 PM Note Text: BRIEF OP NOTE LOG ID: [id number] Surgery/Procedure Date: 06/20/2018 Incision/Procedure Start Time: 11:18 AM Incision Close/Procedure End Time: 1:17 PM Surgeon(s)/Procedurali st(s) and Feed Mill Manager(s): Surgeon(s) and Role: * Jenna Garsia - [...] 2018 TIME: 5:49 PM PAGER/CONTACT #: [facility] CASE MANAGEMon 06-20-2018 CASE MANAGEM HNO ID: [id number] Author: May Herrera (Sw) Service: Care Management Author Type: Tubing Drier Type: Care Mgt Progress Note Filed: 06/20/2018 [...] is pcp summary of care sent via [place] () Nurse to provide discharge instructions. TRANSPORTATION ARRANGEMENTS: Car Spouse ADDITIONAL CONTACT RESOURCES: Needs Prior to Discharge: Ready for Discharge Appointments for Next 45 Days Date Time Provider Location Dept Phone 07/03/2018 10:00 AM CAROLA BAPTISTE AT [phone] 07/03/2018 10:30 AM GABRIEL CANTU) [facility] AT [phone] 07/31/2018 2:15 PM JENNA GARSIA AT [phone] Pt to be discharged home to follow up as above. SIGNATURE: DARIO Saini PATIENT NAME: Carroll Fuentes DATE: June 20, 2018 TIME: 5:31 PM PAGER/CONTACT #: [phone] [facility] CASE MGT INIT [facility] 2018 CASE MGT INIT [facility] HNO ID: [id number] Author: May Herrera (Sw) Service: Care Management Author Type: Tubing Drier Type: Care Mgt Initial Assessment Filed: 06/20/2018 5:31 PM Note Text: CARE MANAGEMENT: ASSESSMENT AND DISCHARGE PLAN SERVICE DATE: 06/20/2018 SERVICE TIME: 5:27p PRIMARY CARE PHYSICIAN: Robert Villasenor MD ADMISSION STATUS: Inpatient Needs Prior to Discharge: Ready for Discharge MEDICAL: Patient/Workers' Compensation Claims Examiner Stated Goals: To improve my functional status [...] With: Spouse Financial Resources: 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 O.Therapy recommend home. Spouse visiting at bedside and will transport pt home later today.Further discharge needs not anticipated.SW/TCC to follow to assist with plans for discharge. SIGNATURE: DARIO Saini PATIENT NAME: Carroll Fuentes DATE: June 20, 2018 TIME: 5:27 PM PAGER/CONTACT #: [phone] [facility] CONSULTon 06-20-2018 CONSULT HNO ID: [id number] Author: Dulce Green Service: General Internal Medicine [...] Disp: Rfl: 06/19/2018 at 0630 rizatriptan (MAXALT GOLD LAYER) 10 mg disintegrating tablet DISSOLVE 1 TABLET [...] the care of your patient. Dulce Green APRN.AREA OPERATIONS MANAGER June 20, 2018 4:34 PM [facility] NURSING PROGon 06-20-2018 Protein mass conc HNO ID: [id number] Author: Fela (Rn) FLETCHER Phillips Service: (none) Author Type: Registered Nurse Type: Nursing Progress Note Filed: 06/20/2018 7:39 PM Note Text: Nursing Progress Note Patient Name: Carroll Fuentes Patient Location: [facility]/ [place]-* __ Daily Note: 1545. Care assumed. Pt [...] at bedside. 1720. Dr. Meeks and Dulce BAKERY TEAM LEADER at bedside, plan is to stay for [...] was completed by: Fela Phillips RN [facility] Protein mass conc HNO ID: [id number] Author: Wendy (Rn) FLETCHER Underwood Service: Nursing Author Type: Registered Nurse Type: Nursing Progress Note Filed: 06/20/2018 10:20 AM Note Text: Nursing Progress Note Patient Name: Carroll Fuentes Patient Location: SUR[facility]ERY [facility]/ S* __ Daily Note:Right interscalene nerve block with ultrasound guidance with Dr. Velarde and Dr. Marlow at bedside. Patient tolerated procedure well, VSS, will continue to monitor as we wait for OR team. Resting comfortably with no complaints of pain at this time. This note was completed by: Wendy Underwood RN [facility] OPERATIVE NOon 06-20-2018 OPERATIVE NO HNO ID: [id number] Author: Jenna Garsia Service: Orthopaedic Surgery Author Type: Physician Type: Operative Report Filed: 06/20/2018 1:25 PM Note Text: [place] [id number] [place] OPERATIVE REPORT NAME: Carroll Fuentes [facility] #: [id number] DATE: 06/20/2018 (11:18am-1:17pm) AGE: 58 SURGEON 1: Jenna Garsia M.D. ACCOUNTING REPRESENTATIVE: 1. Augie Coates M.D. 2. Kusum Prasad M.D. 3. Mundo Pablo OPERATION: Right total shoulder arthroplasty, biceps tenodesis. ANESTHESIA: General anesthesia with regional interscalene nerve block for postoperative pain control. PREOPERATIVE DIAGNOSIS: Right shoulder primary glenohumeral osteoarthritis. POSTOPERATIVE DIAGNOSIS: Right shoulder primary glenohumeral osteoarthritis, biceps tendinopathy. OPERATIVE INDICATIONS: The patient is a 58 year [id number] right-hand dominant white female who has a [...] rotator interval stitch was then passed in [id number] fashion with a #2 Ticron suture and tied down to close the lateral rotator interval and set the osteotomy superiorly. The two #2 Fiberwire sutures coming out of the bicipital groove were then sequentially passed in a [id number]-[id number] fashion medial to the horizontal mattress and [...] COMPLICATIONS: none apparent Jenna Garsia M.D. [facility] PT EDon 06-20-2018 PT ED HNO ID: [id number] Author: Cindy (Rn) FLETCHER Griffin Service: (none) [...] Signed By: Cindy Griffin RN In Department: [facility] SURGICAL SERVICES [facility] THERAPY NTon 06-20-2018 THERAPY NT HNO ID: [id number] Author: Abi ValenciaOtTyesha Phillips Service: Occupational Therapy Author Type: Occupational Therapist Type: Therapy (PT/OT/Speech/Resp) Filed: 06/20/2018 4:59 PM Note Text: Occupational Therapy Evaluation SERVICE DATE: 06/20/2018 SERVICE TIME: 1550 to 1640 ROOM: [address] Recommended Discharge Disposition: Home Anticipated Discharge [...] daily living (ADL) Interventions Provided: Evaluation;Therapeutic Exercise (22530);Self Senior Care Management (36370) $ Evaluation-Low (04118) Billed Units: 1 unit Therapeutic Exercise (67132) Treatment Minutes: 10 1 unit Skilled Intervention(s): Education in Self Senior Care Management (48353) Treatment Minutes: 28 2 units Skilled Intervention(s): [...] Environment Patient Lives With: Spouse Assistance Available: horse race timer Number Of Stairs To Bed/Bath: 0 Equipment [...] June 20, 2018 TIME: 4:54 PM [facility] XR SHOULDER 2V AP/TRUE AP [...] Jun 20 2018 2:04PM EST [id number] [facility] NURSING PROGon 06-09-2018 Protein mass conc HNO ID: [id number] Author: Ivana (Rn) FLETCHER Heller Service: Nursing [...] RN June 15, 2018 4:39 PM Normal [facility] Type and SCR (30D)on 019 ABO/RH(D) Positive Normal [facility] HOSPon 04-28-2018 HOSP Patient:Dahm,Patrici a MRN: Height:5' 2 (1.575 m) Weight:186 lb (84.369 kg) Outpatient Medications as of 06/20/18: calcium phosphate dibas/vit D3 (VITAMIN D, WITH CALCIUM, ORAL) docusate sodium (COLACE) 100 mg capsule aspirin, enteric coated (ECOTRIN LOW STRENGTH) 81 mg EC tablet oxyCODONE-acetaminophe n (PERCOCET) 5-325 mg tablet rizatriptan (MAXALT GOLD LAYER) 10 mg disintegrating tablet mupirocin (BACTROBAN) 2 [...] (RADIO CT SCAN [facility]): RT Lillian, Tech 06/07/2018 10:04 AM [...] Lillian June 07, 2018 9:54 AM [facility] Vital Signs Date Time Vital Sign Value Performing Clinician Facility 01-23-2025 11:48-0400 Body height 154.94 cm Robert Ball DO Work Phone: 01-23-2025 11:48-0400 Body mass index (BMI) [Ratio] 31.8 kg/m2 Robert Ball DO Work Phone: 01-23-2025 11:48-0400 Body weight 76.37 kg Robert Ball DO Work Phone: 01-23-2025 11:48-0400 Diastolic blood pressure 76 mm[Hg] Robert Ball DO Work Phone: 01-23-2025 11:48-0400 Heart rate 68 /min Robert Ball DO Work Phone: 01-23-2025 11:48-0400 Respiratory rate 12 /min Robert Ball DO Work Phone: 01-23-2025 11:48-0400 Systolic blood pressure 120 mm[Hg] Robert Ball DO Work Phone: 11-28-2024 13:37-0400 Body height 154.94 cm Robert Ball DO Work Phone: 11-28-2024 13:37-0400 Body mass index (BMI) [Ratio] 31.8 kg/m2 Robert Ball DO Work Phone: 11-28-2024 13:37-0400 Body weight 76.43 kg Robert Ball DO Work Phone: 11-28-2024 13:37-0400 Diastolic blood pressure 72 mm[Hg] Robert Ball DO Work Phone: 11-28-2024 13:37-0400 Heart rate 77 /min Robert Ball DO Work Phone: 11-28-2024 13:37-0400 Respiratory rate 12 /min Robert Ball DO Work Phone: 11-28-2024 13:37-0400 Systolic blood pressure 107 mm[Hg] Robert Ball DO Work Phone: 10-11-2024 10:42-0400 Body height 154.94 cm Robert Ball DO Work Phone: 10-11-2024 10:42-0400 Body mass index (BMI) [Ratio] 31.8 kg/m2 Robert Ball DO Work Phone: 10-11-2024 10:42-0400 Body weight 76.31 kg Robert Ball DO Work Phone: 10-11-2024 10:42-0400 Diastolic blood pressure 69 mm[Hg] Robert Ball DO Work Phone: 10-11-2024 10:42-0400 Heart rate 66 /min Robert Ball DO Work Phone: 10-11-2024 10:42-0400 Respiratory rate 12 /min Robert Ball DO Work Phone: 10-11-2024 10:42-0400 Systolic blood pressure 103 mm[Hg] Robert Ball DO Work Phone: 09-12-2024 15:22-0400 Body height 154.94 cm Robert Ball DO Work Phone: 09-12-2024 15:22-0400 Body mass index (BMI) [Ratio] 32.3 kg/m2 Robert Ball DO Work Phone: 09-12-2024 15:22-0400 Body weight 77.79 kg Robert Ball DO Work Phone: 09-12-2024 15:22-0400 Diastolic blood pressure 79 mm[Hg] Robert Ball DO Work Phone: 09-12-2024 15:22-0400 Heart rate 69 /min Robert Ball DO Work Phone: 09-12-2024 15:22-0400 Respiratory rate 12 /min Robert Ball DO Work Phone: 09-12-2024 15:22-0400 Systolic blood pressure 133 mm[Hg] Robert Ball DO Work Phone: 07-25-2024 09:00-0400 Diastolic blood pressure 79 mm[Hg] 07-25-2024 09:00-0400 Heart rate 66 /min [facility] 07-25-2024 09:00-0400 Respiratory rate 12 /min [facility] 07-25-2024 09:00-0400 Systolic blood pressure 161 mm[Hg] 07-18-2024 10:47-0400 Body height 154.94 cm [facility] 07-18-2024 10:47-0400 Body mass index (BMI) [Ratio] 32.8 kg/m2 07-18-2024 10:47-0400 Body weight 78.95 kg [facility] 07-18-2024 10:47-0400 Diastolic blood pressure 74 mm[Hg] 07-18-2024 10:47-0400 Heart rate 68 /min [facility] 07-18-2024 10:47-0400 Respiratory rate 12 /min [facility] 07-18-2024 10:47-0400 Systolic blood pressure 134 mm[Hg] 07-13-2024 10:11-0400 Body height 154.94 cm [facility] 07-13-2024 10:11-0400 Body mass index (BMI) [Ratio] 32.9 kg/m2 07-13-2024 10:11-0400 Body weight 79.01 kg [facility] 07-13-2024 10:11-0400 Diastolic blood pressure 77 mm[Hg] 07-13-2024 10:11-0400 Heart rate 65 /min [facility] 07-13-2024 10:11-0400 Respiratory rate 12 /min [facility] 07-13-2024 10:11-0400 Systolic blood pressure 117 mm[Hg] 07-11-2024 08:30-0400 Body temperature 98.6 [degF] Jose Sharif MD Work Phone: [facility] 07-11-2024 08:30-0400 Diastolic blood pressure 62 mm[Hg] Jose Sharif MD Work Phone: [facility] [employer] 07-11-2024 08:30-0400 Heart rate 88 /min [facility] 07-11-2024 08:30-0400 Respiratory rate 16 /min Jose Sharif MD Work Phone: [facility] [employer] 07-11-2024 08:30-0400 SaO2% (BldA) [Mass fraction] 98 % Jose Sharif MD Work Phone: [facility] [employer] 07-11-2024 08:30-0400 Systolic blood pressure 117 mm[Hg] Jose Sharif MD Work Phone: [facility] [employer] 07-06-2024 20:16-0400 Body height 154.9 cm Jose Sharif MD Work Phone: [facility] 07-06-2024 20:16-0400 Body mass index (BMI) [Ratio] 33.07 kg/m2 Jose Sharif MD Work Phone: [facility] 07-06-2024 20:16-0400 Body weight 79.38 kg Jose Sharif MD Work Phone: [facility] 07-04-2024 15:04-0400 Body height 154.94 cm [facility] 07-04-2024 15:04-0400 Body mass index (BMI) [Ratio] 32.9 kg/m2 07-04-2024 15:04-0400 Body weight 79.06 kg [facility] 07-04-2024 15:04-0400 Diastolic blood pressure 79 mm[Hg] 07-04-2024 15:04-0400 Heart rate 69 /min [facility] 07-04-2024 15:04-0400 Respiratory rate 12 /min [facility] 07-04-2024 15:04-0400 Systolic blood pressure 177 mm[Hg] 06-25-2024 10:11-0500 Body temperature 97.3 [degF] [facility] 06-25-2024 10:11-0500 Diastolic blood pressure 76 mm[Hg] 06-25-2024 10:11-0500 Heart rate 54 /min [facility] 06-25-2024 10:11-0500 Respiratory rate 16 /min [facility] 06-25-2024 10:11-0500 SaO2% (BldA) [Mass fraction] 98 % 06-25-2024 10:11-0500 Systolic blood pressure 119 mm[Hg] 06-25-2024 10:07-0500 Body height 154.94 cm [facility] 06-25-2024 10:07-0500 Body mass index (BMI) [Ratio] 32.9 kg/m2 06-25-2024 10:07-0500 Body weight 79.15 kg [facility] 02-24-2024 14:13-0400 Body height 154.94 cm [facility] 02-24-2024 14:13-0400 Body mass index (BMI) [Ratio] 33.1 kg/m2 02-24-2024 14:13-0400 Body temperature 96 [degF] [facility] 02-24-2024 14:13-0400 Body weight 79.6 kg [facility] 02-24-2024 14:13-0400 Diastolic blood pressure 84 mm[Hg] 02-24-2024 14:13-0400 Heart rate 66 /min [facility] 02-24-2024 14:13-0400 Systolic blood pressure 159 mm[Hg] 12-20-2023 15:35-0400 Body height 154.94 cm [facility] 12-20-2023 15:35-0400 Body mass index (BMI) [Ratio] 33.8 kg/m2 12-20-2023 15:35-0400 Body weight 81.19 kg [facility] 12-20-2023 15:35-0400 Diastolic blood pressure 80 mm[Hg] 12-20-2023 15:35-0400 Heart rate 78 /min [facility] 12-20-2023 15:35-0400 Respiratory rate 12 /min [facility] 12-20-2023 15:35-0400 Systolic blood pressure 134 mm[Hg] 04-29-2023 09:00-0500 Body height 154.94 cm Robert Ball Other [employer] Other 04-29-2023 09:00-0500 Body mass index (BMI) [Ratio] 33.14 kg/m2 Robert Ball Other [employer] Other 04-29-2023 09:00-0500 Body weight 79.56 kg Robert Ball Other [employer] Other 04-29-2023 09:00-0500 Diastolic blood pressure 89 mm[Hg] Robert Ball Other [employer] Other 04-29-2023 09:00-0500 Respiratory rate 12 /min Robert Ball Other [employer] Other 04-29-2023 09:00-0500 Systolic blood pressure 155 mm[Hg] Robert Ball Other [employer] Other 12-20-2022 13:45-0400 Body height 154.94 cm Robert Ball Other [employer] Other 12-20-2022 13:45-0400 Body mass index (BMI) [Ratio] 34.12 kg/m2 Robert Ball Other [employer] Other 12-20-2022 13:45-0400 Body weight 81.92 kg Robert Ball Other [employer] Other 12-20-2022 13:45-0400 Diastolic blood pressure 96 mm[Hg] Robert Ball Other [employer] Other 12-20-2022 13:45-0400 Respiratory rate 12 /min Robert Ball Other [employer] Other 12-20-2022 13:45-0400 Systolic blood pressure 179 mm[Hg] Robert Ball Other [employer] Other 08-04-2022 09:45-0400 Body height 154.94 cm Robert Ball Other [employer] Other 08-04-2022 09:45-0400 Body mass index (BMI) [Ratio] 33.33 kg/m2 Robert Villasenor Other [employer] Other 08-04-2022 09:45-0400 Body weight 80.02 kg Robert Villasenor Other [employer] Other 08-04-2022 09:45-0400 Diastolic blood pressure 77 mm[Hg] Robert Villasenor Other [employer] Other 08-04-2022 09:45-0400 Respiratory rate 12 /min Robert Villasenor Other [employer] Other 08-04-2022 09:45-0400 Systolic blood pressure 128 mm[Hg] Robert Villasenor Other [employer] Other Encounters Encounter Date Encounter Type Care Provider Facility Start: 01-28-2025 End: 01-28-2025 ambulatory Miriam Barron MD Facility:[facility] Start: 01-23-2025 End: 01-23-2025 ambulatory Robert Villasenor DO Work Phone: [facility] Work Phone: Start: 01-23-2025 End: 01-23-2025 Patient encounter procedure Robert Villasenor DO [facility] Work Phone: Start: 11-28-2024 End: 11-28-2024 ambulatory Robert Villasenor DO Work Phone: [facility] Work Phone: Start: 11-28-2024 End: 11-28-2024 Patient encounter procedure Robert Villasenor DO -[facility] Work Phone: Start: 11-23-2024 End: 11-25-2024 amb[facility] Start: 11-23-2024 End: 11-25-2024 Subsequent hospital visit by physician Tomás Helton DO Work Phone: [facility] Comment on above: Osteoarthritis of ri ght knee, unspecified osteoarthritis type Start: 10-13-2024 Non-patient / Non-visit Robert barnard [facility] [employer] Work Phone: Start: 10-11-2024 End: 10-11-2024 Patient encounter procedure Robert Villasenor [facility] Work Phone: Start: 10-11-2024 End: 10-11-2024 Patient encounter status Robert Villasenor DO [facility] Start: 09-21-2024 Non-patient / Non-visit Robert barnard [facility] [employer] Work Phone: Start: 09-14-2024 [facility]: Start: 09-12-2024 End: 09-12-2024 Patient encounter procedure Robert Villasenor [facility] Work Phone: Start: 07-25-2024 End: 07-25-2024 ambulatory [facility] Work Phone: Start: 07-25-2024 End: 07-25-2024 Patient encounter procedure [facility] Physician [facility] Work Phone: Start: 07-18-2024 End: 07-18-2024 ambulatory [facility] Work Phone: Start: 07-18-2024 End: 07-18-2024 Patient encounter procedure [facility] Physician [facility] Work Phone: Start: 07-18-2024 Non-patient / Non-visit [facility] Work Phone: Start: 07-13-2024 End: 07-13-2024 ambulatory [facility] Work Phone: Start: 07-13-2024 End: 07-13-2024 Patient encounter procedure [facility] Physician [facility] Work Phone: Start: 07-12-2024 Non-patient / Non-visit [facility] Physician [facility] Work Phone: Start: 07-11-2024 Non-patient / Non-visit [facility] Physician [facility] Work Phone: Start: 07-06-2024 End: 07-11-2024 Evaluation and management of inpatient Jose Sharif MD Work Phone: [facility] Start: 07-04-2024 End: 07-04-2024 ambulatory [facility] Work Phone: Start: 07-04-2024 End: 07-04-2024 Encounter for other preprocedural examination Start: 07-04-2024 End: 07-04-2024 Patient encounter procedure [facility] Work Phone: Start: 06-27-2024 Non-patient / Non-visit [facility] Work Phone: Start: 06-25-2024 End: 06-25-2024 ambulatory [facility] Work Phone: Start: 06-25-2024 End: 06-25-2024 Patient encounter procedure [facility] Work Phone: Start: 06-21-2024 ambulatory Raisa New KAUFFMANES [facility] Start: 06-01-2024 Non-patient / Non-visit [facility] Physician [facility] Work Phone: Start: 05-31-2024 Non-patient / Non-visit [facility] Physician [facility] Work Phone: Start: 04-09-2024 End: 04-09-2024 ambulatory Miriam Barron MD Facility: [facility] Start: 02-24-2024 End: 02-24-2024 ambulatory [facility] Work Phone: Start: 02-24-2024 End: 02-24-2024 Patient encounter procedure [facility] Work Phone: Start: 02-22-2024 Non-patient / Non-visit [facility] Physician [facility] Work Phone: Start: 12-27-2023 Non-patient / Non-visit [facility] [employer] Work Phone: Start: 12-20-2023 Patient encounter status Start: 12-20-2023 End: 12-20-2023 ambulatory [facility] Work Phone: Start: 12-20-2023 End: 12-20-2023 Patient encounter procedure [facility] Physician [facility] Work Phone: Start: 06-01-2023 End: 06-01-2023 ambulatory Robert Villasenor Other [employer] Other Start: 06-01-2023 Telephone encounter Robert Villasenor [facility] Start: 05-13-2023 End: 05-13-2023 ambulatory Robert Villasenor Other [employer] Other Start: 05-13-2023 Telephone encounter Robert Villasenor [facility] Start: 05-09-2023 End: 05-09-2023 ambulatory Robert Villasenor Other [employer] Other Start: 05-09-2023 Telephone encounter Robert Ball [facility] Start: 05-04-2023 End: 05-04-2023 ambulatory Robert Ball Other [employer] Other Start: 05-04-2023 Telephone encounter Robert Ball [facility] Start: 05-02-2023 End: 05-02-2023 ambulatory Robert Ball Other [employer] Other Start: 05-02-2023 Telephone encounter Robert Ball [facility] Start: 04-29-2023 End: 04-29-2023 ambulatory Robert Ball Other [employer] Other Start: 04-29-2023 Office outpatient vi sit 15 minutes Robert Ball [facility] Start: 04-04-2023 End: 04-04-2023 ambulatory Robert Ball Other [employer] Other Start: 04-04-2023 Telephone encounter Robert Ball [facility] Start: 01-24-2023 End: 01-24-2023 ambulatory Robert Ball Other [employer] Other Start: 01-24-2023 Telephone encounter Robert Ball [facility] Start: 12-23-2022 End: 12-23-2022 ambulatory Robert Ball Other [employer] Other Start: 12-23-2022 Telephone encounter Robert Ball [facility] Start: 12-20-2022 End: 12-20-2022 ambulatory Robert Ball Other [employer] Other Start: 12-20-2022 Office outpatient vi sit 15 minutes Robert Ball [facility] Start: 12-17-2022 End: 12-17-2022 ambulatory Robert Ball Other [employer] Other Start: 12-17-2022 Telephone encounter Robert Ball [facility] Start: 11-08-2022 End: 11-08-2022 ambulatory Robert Ball Other [employer] Other Start: 11-08-2022 Telephone encounter Robert Ball [facility] Start: 10-22-2022 End: 10-22-2022 ambulatory Robert Ball Other [employer] Other Start: 10-22-2022 Telephone encounter Robert Ball [facility] Start: 10-13-2022 End: 10-13-2022 ambulatory Robert Ball Other [employer] Other Start: 10-13-2022 Telephone encounter Robert CHAVARRIA [facility] Start: 09-27-2022 End: 09-27-2022 ambulatory Robert Villasenor Other [employer] Other Start: 09-27-2022 Telephone encounter [facility] Start: 08-23-2022 End: 08-24-[address] RISHI PARKER Facility:[facility] Start: 08-04-2022 End: 08-04-2022 ambulatory Robert Villasenor Other [employer] Other Start: 08-04-2022 Office outpatient vi sit 25 minutes Robert Villasenor [facility] Start: 04-03-2022 Encounter for genera l adult medical examination without abnormal findings DR ROBERT VILLASENOR [facility] Start: 03-30-2022 End: 03-31-[address] [...] Start: 07-03-2018 End: 07-03-2018 Patient encounter procedure [facility] Start: 06-20-2018 End: 06-20-2018 Evaluation and management of inpatient [facility] Procedures Date Procedure Procedure Detail Performing Clinician Start: 07-11-2024 Anion gap [Moles/Vol] A luis Martinio PA Work Phone: Start: 07-11-2024 End: 07-11-2024 [...] d ev cleared fda spec home use Adnk Diglio PA Work Phone: Start: 07-09-2024 Potassium [...] 60 yrs+ (1 - 1-dose 75+ series) [employer] Start: 07-11-2025 GFR test (Diabetes, CKD 3-4, OR last GFR 15-59) GFR test (Diabetes, CKD 3-4, OR last GFR 15-59) [employer] Start: 11-23-2024 Influenza vaccination Flu vaccine (# 1) [employer] Start: 04-25-2024 Annual Wellness Visi t (Medicare Advantage) Annual Wellness Visit (Medicare Advantage) [employer] Start: 12-25-2023 COVID-19 Vaccine ( season) COVID-19 Vaccine ( season) [employer] Start: 2014 Screening for osteoporosis DEXA (modify frequency per FRAX score) [employer] Start: 2009 Pneumococcal 50+ yea rs Vaccine (1 of 1 - PCV) Pneumococcal 50+ years Vaccine (1 of 1 - PCV) [employer] Start: 2009 Shingles vaccine (1 of 2) Shingles vaccine (1 of 2) [facility] [employer] Start: 2004 Screening for malign ant neoplasm of colon [facility] [employer] Start: 1999 Screening for malign ant neoplasm of breast [facility] Start: 1994 Diabetes screen Diabetes screen [facility] Start: 1989 Screening for malign ant neoplasm of cervix [facility] [employer] Start: 1980 Screening for malign ant neoplasm of cervix Pap smear [facility] [employer] Start: 1978 DTaP/Tdap/Td vaccine (1 - Tdap) DTaP/Tdap/Td vaccine (1 - Tdap) [facility] [employer] Start: 1978 Pneumococcal 50+ yea rs Vaccine (1 of 2 - PCV) Pneumococcal 50+ years Vaccine (1 of 2 - PCV) [facility] [employer] Start: 1977 Glaucoma screening Diabetic retinal exam [facility] [employer] Start: 1977 Hepatitis C screening Hepatitis C sc reen [facility] [employer] Start: 1977 Urine screening for protein Diabetic Alb to Cr ratio (uACR) test [facility] [employer] [employer] Start: 1974 HIV screening HIV screen [facility] [employer] Start: 1971 Depression Screen Depression Screen [facility] [employer] Start: 1969 Diabetic foot examination Diabetic foot exam [facility] [employer] Start: 1969 Hemoglobin A1c measurement A1C test (Diabetic or Prediabetic) [facility] [employer] Start: 1969 Lipid panel Lipids [facility] [employer] End: 07-15-2024 Basic metabolic 2000 panel - Serum or Plasma Basic Metabolic Panel Lab Routine Daily for 1 Weeks starting 07/09/2024 until 07/15/2024, 3 completed [facility] Comment on above: Daily for [address] arting 07/09/2024 until 07/15/2024, 3 completed Comprehensive metabo lic 1999 panel - Serum or Plasma Comprehensive metabo lic 1999 panel - Serum or Plasma Comprehensive metabo lic 1999 panel - Serum or Plasma Glucose [Mass/volume ] in Serum or Plasma POCT Glucose Point of Care Testing STAT As Needed until discontinued starting 07/06/2024 [employer] Comment on above: As Needed until disc ontinued starting 07/06/2024 Glucose [Mass/volume ] in Serum or Plasma POCT glucose Point of Care Testing Routine 4X Daily (AC & HS) until discontinued starting 07/07/2024, 18 completed [employer] Comment on above: 4X Daily (AC & HS) u ntil discontinued starting 07/07/2024, 18 completed Glucose [Mass/volume ] in Serum or Plasma POCT Glucose Point of Care Testing STAT As Needed until discontinued starting 07/10/2024 [employer] Comment on above: As Needed until disc ontinued starting 07/10/2024 End: 07-15-2024 Hemoglobin and Hematocrit Hemoglobin and Hematocrit Lab Routine Daily for 1 Weeks starting 07/09/2024 until 07/15/2024, 3 completed [facility] Comment on above: Daily for [address] arting 07/09/2024 until 07/15/2024, 3 completed MG Breast - bilatera l Diagnostic MG Breast - bilatera l Diagnostic End: 11-23-2024 MR Knee - right WO contrast [employer] Comment on above: 1 Occurrences starti ng 11/23/2024 until 11/23/2024 MR Knee - right WO contrast Oxygen therapy [[facility] Data Set] Initiate Oxygen Therapy Protocol Respiratory Care Routine As Needed until discontinued starting 07/08/2024 [employer] Comment on above: As Needed until disc ontinued starting 07/08/2024 Spirometry panel Incentive jesse metry Respiratory Care Routine Every 2hr while awake until discontinued starting 07/06/2024 [employer] Work Phone: Comment on above: Every 2hr while awak e until discontinued starting 07/06/2024 Spirometry panel Incentive jesse metry Respiratory Care Routine Every 2hr while awake until discontinued starting 07/08/2024 [employer] Comment on above: Every 2hr while awak e until discontinued starting 07/08/2024 US Axilla [facility] US Breast - left limited [facility] Payers Date Payer Category Payer Unknown [id number] 2024 Medicare 2023 Unknown 2022 Blue Cross Blue Shield [id number] 2019 Unknown [id number] 2015 Unknown [id number] 1959 Self-pay [id number] 1959 Unknown [id number] 2.16.840.1.744021.3.579.2.5 93 1959 Unknown [id number] 2.16.840.1.236486.3.579.2.5 93 1959 Unknown [id number] 2.16.840.1.448110.3.579.2.5 93 1959 Unknown [id number] 2.16.840.1.244225.3.579.2.5 93 1959 Unknown [id number] 2.16.840.1.481511.3.579.2.5 93 1959 Unknown [id number] 2.16.840.1.486199.3.579.2.5 93 1959 Unknown [id number] 2.16.840.1.877466.3.579.2.7 27 1959 Unknown [id number] 2.16.840.1.875229.3.579.2.9 3 1959 Unknown [id number] 2.16.840.1.357314.3.579.2.1 74 1959 Unknown [id number] 2.16.840.1.162092.3.579.2.1 96 1959 Unknown [id number] 2.16.840.1.936541.3.579.2.1 96 Medicare Medicare [id number] Unknown [id number] 2.16.840.1.262753.3.579.2.5 93 Unknown MMO [id number] Unknown [facility] PFFS [id number] Social History Date Type Detail Facility Start: 07-06-2024 Sex Assigned At [facility] Other Start: 1960 Sex Assigned At Female Tobacco smoking stat us NHIS Unknown if ever smoked [facility] Work Phone: Start: 06-04-2012 End: 06-25-2024 Sex Female (finding) Start: 07-06-2024 End: 10-11-2024 Tobacco smoking status NHIS Never smoked tobacco [facility] Start: 07-06-2024 Tobacco use and exposure Smokeless tobacco non-user [facility] Start: 07-09-2024 Alcoholic beverage intake Lifetime non-drinker (finding) [facility] Start: 07-06-2024 History of Social function [employer] Has the [employer], [employer], or water [place] threatened to shut off services in your home in past 12Mo No [facility] (I/We) worried eladio er (my/our) food would run out before (I/we) got money to buy more. Never true [facility] In the past 12 month s, has lack of transportation kept you from medical appointments or from getting medications? No [facility] Start: 1960 Sex assigned at Not on file [facility] Medical Equipment Procedure Code Equipment Code Equipment Original Text Equipment Identifier Dates Screw Spnl L45mm Dia6.5mm Post Thoracolumbosacral Co Chrom - [id number] Start: 07-08-2024 Screw Spnl L40mm Dia6.5mm Post Thoracolumbosacral Co Chrom - [id number] Start: 07-08-2024 Set Scr Spnl L6m m Dia5.5mm Ti Brk Off Svetlana W/ Detach Cdh - [id number] Start: 07-08-2024 Evan Spnl L35mm D ia5.5mm Ant Post Thoracolumbosacral Ti - [id number] Start: 07-08-2024 Clinical Notes 08-04-2022 to [...] mass, left acute January 23, 2025 11:33am [facility] Work Phone: 1(268) 491-999005-21-2025 Evaluation note* Diagnosis Onset Date Resolution Status Admit Date Acute blood loss anemia acute M 2024 3:13pm Hypertension acute September 12 3:13pm Knee pain, right acute August 3:13pm Mass of left axilla acute August 242024 3:13pm Prerenal azotemia acute August 3:13pm Type 2 diabetes mellitus wit h hyperglycemia acute September 12, 2024 3:13pm Hypercholesterolemia acute October 11, 2024 10:26am Hypertension acute October 11, 2 025 10:26am Hypothyroid acute October 11 10:26am Major depression acute September 10:26am STEPHANIE (obstructive sleep apnea) acute October 11, 2024 10:26am Type 2 diabetes mellitus wit h hyperglycemia acute October 11, 2024 10:26am Welcome to Medicare preventi ve visit noneactive October 11, 2024 10:26am [facility] Work Phone: 1(461) 224-289203-19-2025 History of Present illness Narrative* Bhavani Anderson [...] OP. Jose Sharif MD, MD * Berny Lewis, ETHAN - 07/11/2024 6:57 AM EDT Department of [...] /SSI PT/OT SCD amlabs Jose Sharif MD, * Garima Rosales, PT - 07/10/2024 10:18 AM EDT [facility] INPATIENT PHYSICAL THERAPY EVALUATION [facility] 7K - [id number]-[id number] Discharge Recommendations: [...] urinary incontinence. 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 Donclive petersone in standing Bed Mobility: Rolling to Right: [...] Not Tested Exercise: None Functional Outcome Measures: [facility] (6 CLICK) BASIC MOBILITY [facility] Inpatient Mobility Raw Score : 17 [facility] Inpatient T-Scale Score : 42.13 Modified [place]: Premorbid Functional Status: Not Applicable Current Functional [...] with mobility. Prison Goals Time Frame for [facility] Sample Case Goals : NA due to short ELOS Following session, patient left in safe position with all fall risk precautions in place. Pt in bedfollowing session, all needs and call light in reach, alarm on. * America Waters OTA - 07/10/2024 8:30 AM EDT [facility] 7 Occupational Therapy Daily Note Discharge Recommendations: Home with Home Health OT Equipment Recommendations: No Monitor need for LHAE. Time In: 0800 Time Out: 08 Timed Code Treatment Minutes: 28 Minutes Minutes: 28 Date: 07/10/2024 Patient Name: Carroll Fuentes, Gender: female Room: [address] [place] [address] : 1960 (64 y.o.) Referring Practitioner: Dank [...] urinary incontinence. She was evaluated at [facility], she had an MRI of the [...] injury in the past year?: Yes Active Upholstery Sewer: Yes Occupation: Retired SUBJECTIVE: Patient seated in bedside chair upon arrival; agreeable to therapy this date. Patient pleasant and cooperative throughout session. PAIN: 10/02: Vitals: Vitals not assessed per clinical judgement, see nursing flowsheet COGNITION: WFL ADL: Grooming: Modified Independent. Hair care seated in bedside chair Upper Extremity Dressing: Minimal Assistance. Carroll/doff house robe Lower Extremity Dressing: Minimal Assistance. With car jockey in order to acrroll/doff hospital shorts with verbal/visual cues to complete, demonstrating good understanding. Footwear Management: Supervision, X 1, with verbal cues , and with increased time for completion. Utilized car jockey/sock aid in order to doff/carroll B socks [...] demonstrate appropriately throughout session. Functional Outcome Measures: [facility] Inpatient Daily Activity Raw Score: [...] Goals?: No Prison Goals Time Frame for [facility] Sample Case Goals : No LTGs d/t short estimated length of stay. Following session, patient left in safe position with all fall risk precautions in place. Cosigned by Angela Dawkins, OT at 07/10/2024 8:57 AM EDT * [...] chloride dextrose Lab Results: CBC: Recent Labs 07/06/24 2046 07/07/24 1030 07/09/24 0539 WBC 11.6* 8.6 -- [...] Rosales, PT - 07/09/2024 2:[address] [facility] PHYSICAL THERAPY MISSED TREATMENT NOTE [facility] 7K Date: 07/09/2024 Patient Name: Carroll Fuentes : 1960 (64 y.o.) Gender: female REASON FOR MISSED TREATMENT: Missed Treat. Attempted x3 today. 1st attempt, pt with tech on BSC and then requesting to eat breakfast. 2nd attempt, OT with pt. 3rd attempt, case reviewer in room to complete assessment. * Angela Dawkins OT - 07/09/2024 1:[address] [facility] INPATIENT OCCUPATIONAL THERAPY [facility] 7K EVALUATION Discharge Recommendations: Continue [...] urinary incontinence. She was evaluated at [facility], she had an MRI of the [...] injury in the past year?: Yes Active Upholstery Sewer: Yes Occupation: Retired VISION:Corrected HEARING: WFL COGNITION: [...] treatment: Good treatment tolerance Functional Outcome Measures: [facility] Inpatient Daily Activity Raw Score: 17 Modified [...] Goals?: No Prison Goals Time Frame for [place] Sample Case Goals : No LTGs d/t short estimated length of stay. AM[facility] Inpatient Daily Activity Raw Score: 17 AM-[facility] Inpatient ADL T-Scale Score : 37.26 Following session, patient left in safe position with all fall risk precautions in place. * Irma Villagomez RN - 07/09/2024 10:32 AM EDT Order for back brace and face sheet faxed to [facility]. * PalBerny tian PA-C - 07/09/2024 6:57 AM EDT Department of [...] Planning: pending Berny Lewis PA-C * Aziza Brown, FLETCHER - 07/08/2024 6:41 PM EDT 1835 pt arrived to pacu, awakens to voice. Respirations unlabored on 2L NC. Sites CDI with [address] VSS. Pt states pain 6/10 at this time, medicated by PRODUCTION EXPEDITER 1840 pt resting, resp easy. VSS 1850 pt awakens to voice, states pain 5/10 and tolerable. VSS 1900 c/o pain 7/10, medicated with 50 mcg fentanyl 1904 no change in pain status, medicated with 50 mcg fentanyl 1909 pt resting, resp easy. VSS 191 pt resting, resp easy. VSS 1924 pt meets criteria for discharge from pacu at this time. Pt transported to [facility] in stable condition * Kusum Conte [...] EDT Spiritual Health History and Assessment/Progress Note [facility] (P) Initial Encounter, , , Name: Carroll Fuentes Age: 64 y.o. Sex: female Language: Luxembourgish Episcopal: Uatsdin Intractable back pain Date: 07/07/2024 Total Time Calculated: (P) 14 min Spiritual Assessment began in [facility] 7K Referral/Consult From: (P) Nurse [...] and how she loves everything about the sikhism. 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 I told the patient that I will let the spiritual care team know. Offered patient words of encouragement, quoted Scripture, and prayed with the patient, at her request. Patient expressed gratitude. Made patient aware of friction welding machine operator availability and support. Patient Interventions include: Facilitated expression of thoughts and feelings, Explored spiritual coping/struggle/distress, Affirmed coping skills/support systems, and Provided sacramental/religiousritual Family/Friends Interventions include: No family/friends present Patient Plan of Care: Contact [place] director of community services for support or sacramental needs Family/Friends Plan of Care: No family/friends present documented in this [facility]Bon [facility] Discharge instructions* Discharge Instructions* Bhavani Anderson [...] All vegetables, especially asparagus, [place] sprouts, broccoli, [place] sprouts, cabbage, carrots, cauliflower, celery, corn, greens, [...] taking more than one drug. This includes uyxq-vlt-jymrwgb medication and herb or dietary supplements. Plan [...] and possible side effects documented in this [facility] NotePROCEDURE: XR LUMBAR SPINE 1 VW CLINICAL [...] loss of vertebral body height is seen. [id number] NotePROCEDURE: XR LUMBAR SPINE 1 VW CLINICAL [...] Signed by: Sivakumar Betts MD 07/08/24 [facility] Evaluation note* Diagnosis Onset Date Resolution Status [...] eactive July 04, 2024 2:57pm [facility] Work Phone: 1(189) 929-116503-03-2025 Evaluation note* Diagnosis Onset Date Resolution Status Admit Date Cervical spondylosis acute 2024 10:04am Hypertension acute June 25 025 [...] acute July 04, 2024 2:57pm [facility] Work Phone: 1(377) 839-310803-03-2025 Evaluation note* Diagnosis Onset Date Resolution Status Admit Date Cervical spondylosis acute 2024 10:04am Hypertension acute June 25 025 [...] 2024 2:57pm Acute blood loss anemia acute [facility] 2024 9:25am Central stenosis of spinal canal acu te July 13, 2024 9:25am Herniated intervertebral dis c of lumbar spine acute July 13, 2024 9:25am Hypotension due to hypovolemia acute July 13, 2024 9:25am Type 2 diabetes mellitus wit h hyperglycemia acute July 13, 2024 9:25am Acute blood loss anemia acute [facility] 2024 10:08am Adverse effect of mixed sedatives acute July 18, 2024 10:08am Central stenosis of spinal canal acu te July 18, 2024 10:08am Herniated intervertebral dis c of lumbar spine acute July 18, 2024 10:08am Hypotension due to hypovolemia acute July 18, 2024 10:08am Type 2 diabetes mellitus wit h hyperglycemia acute July 18, 2024 10:08am Visual hallucinations acute Jun 10:08am [facility] Work Phone: 1(458) 664-612103-03-2025 Evaluation note* Diagnosis Onset Date Resolution Status [...] 2024 9:25am Acute blood loss anemia acute 2024 10:08am Central stenosis of spinal canal acu te July 18, 2024 10:08am Herniated intervertebral dis c of lumbar spine acute July 18, 2024 10:08am Hypotension due to hypovolemia acute July 18, 2024 10:08am Type 2 diabetes mellitus wit h hyperglycemia acute July 18, 2024 10:08am Visual hallucinations acute Jun 2024 10:08am [facility] Work Phone: 1(256) 158-560502-07-2024 Evaluation note* Encounter Date Diagnosis Assessment Notes Treatment Notes Treatment Clinical Notes May, Autoimmune thyroiditis (ICD-10 - E06.3) May, Elevated cholesterol (ICD-10 - E78.00) May, Type 2 diabetes mellitus with hyperglycemia, without long-term current use of insulin (ICD-10 - E11.65) May, Primary hypertension (ICD-10 - I10) May, Intractable chronic migraine without aura and without status migrainosus (ICD-10 - G43.719) [facility] Other 01-15-2024 Evaluation note* Encounter Date Diagnosis Assessment Notes Treatment Notes Treatment Clinical Notes Apr, Intractable chronic migraine without aura and without status migrainosus (ICD-10 - G43.719) [facility] Other 01-08-2024 Evaluation note* Encounter Date Diagnosis Assessment Notes Treatment Notes Treatment Clinical Notes Apr, Intractable chronic migraine without aura and without status migrainosus (ICD-10 - G43.719) [facility] Other 01-05-2024 Evaluation note* Encounter Date Diagnosis [...] Begin Amitriptyline Stop Tizanidine. 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 May want to cut back on Zanaflex. [...] Pain in left shoulder (ICD-10 - M25.512) [facility] Other 06-30-2023 Evaluation note* Encounter Date Diagnosis Assessment Notes Treatment Notes Treatment Clinical Notes Sep, Type 2 diabetes mellitus with hyperglycemia, without long-term current use of insulin (ICD-10 - E11.65) [facility] Other 06-05-2023 Evaluation note* Encounter Date Diagnosis Assessment Notes Treatment Notes Treatment Clinical Notes Sep, Candidiasis, intertriginous (ICD-10 - B37.2) [facility] Other 04-12-2023 Evaluation note* Encounter Date Diagnosis [...] Jul, Other specified hypothyroidism (ICD-10 - E03.8) [facility] Other Evaluation noteNo InformationNort [employer] Other Evaluation noteNo assessment information available [facility] Work Phone: Evaluation note* Diagnosis Onset Date Resolution Status Cervical pain acute Cervical spondylosis acute Cervical pain acute Cervical spondylosis acute Painful lumpy right breast a cute [facility] Work Phone: Evalugphgh note* Diagnosis Intractable back pain- Primary Backache, unspecified Spinal stenosis of lumbar region with neurogenic claudication Spinal stenosis, lumbar region, with neurogenic claudication Primary hypertension Unspecified essential hypertension Type 2 diabetes mellitus, without long-term current use of insulin ([facility]) documented in this encounter [facility] iSironabeebe healthcare note* Diagnosis Osteoarthritis of right knee, unspecified osteoarthritis type [facility] Narrative - Reported* Type Description [...] CATHETERIZATION 2016 Hospitalization History SEE SURIGCAL HX [facility] Other Hisubme general Narrative - Reported* Type Description Date [...] arthroscopy 10/2022 Hospitalization History SEE SURIGCAL HX [facility] Other Reason for referral (narrative)* Reason Evaluation of right knee pain Diagnosis 1 Strain of right knee , subsequent encounter (S82.827J) Referral Organization [facility] bhupinder Referring Provider First Name Robert Referring Provider Last Name Hamilton Referring Provider Specialty Internal Hi yoni Referred Provider Rishi Parker Jr Referred Provider Specialty Orthopedic S urgery Referral Priority Routine [facility] Other Reason for referral (narrative)* Reason Referral for neck pa in Diagnosis 1 Cervicalgia (M54.2) Diagnosis 2 Cervical spondylosis (M47.812) Referral Organization [facility] bhupinder Referring Provider First Name Robert Referring Provider Last Name Hamilton Referring Provider Specialty Internal Me yoni Referred Organization [facility] Referred Address [address], [place],[address] Referred Provider Specialty Pain Medicin e Referral Priority Routine General Notes Patient has hx of ce rvical discectomy and fusion and presented w/ persistent neck pain, which radiated upwards causing a headache. She is being referred for treatment with the pain clinic. Clinical Notes Include MRI [facility] Other Reason for referral (narrative)No reason for referral information availableC[facility] Clinic Work Phone: Reason for visit Narrative* Auth/Cert Specialty Diagnoses / Procedures Referred By Jass adams Referred To Contact Diagnoses Intractable back pain large disc herniation Kole, Jose Meier MD [address] [place] [address] Phone: tel: fax: [facility] [address] [place] [address] Referral ID Status Reason Start Date Expiration Date Visits Re quested Visits Authorized [id number] 1 1 [facility] for visit Narrative* Imaging (Routine) - Closed Specialty Diagnoses / Procedures Referred By Contac t Referred To Contact Radiology Diagnoses Osteoarthritis of right knee, unspecified osteoarthritis type Procedures MRI KNEE RIGHT WO CONTRAST Tomás Helton, DO [address] [place] [address] Phone: tel: fax: Referral ID Status Reason Start Date Expiration Date Visits Re quested Visits Authorized [id number] Closed 11/14/2024 11/14/2025 1 1 [facility] Summary Purpose Family History No Family History [...] Relationship Healthcare Agent Relationshi p Communication Babatunde Braswell Spouse Primary Decision Maker Documents on File Type Date Recorded Patient Workers' Compensation Claims Examiner Expl anation ACP-Advance Directive 07/13/2024 10:35 PM Date Activated Date Inactivated Comments 07/06/2024 7:55 PM 07/11/2024 2:07 PM Healthcare Agents on File Name Relationship Healthcare Agent Relationshi p Communication Babatunde Braswell Spouse Primary Decision Maker Chief Complaint and [...] section and content) DATE CREATED AUTHOR 06/20/2018 [facility] DATE CREATED AUTHOR AUTHOR'S ORGANIZ ATION 07/04/2018 [facility] DATE CREATED AUTHOR AUTHOR'S ORGANIZ ATION 09/18/2020 [facility] DATE CREATED AUTHOR AUTHOR'S ORGANIZ ATION 08/27/2022 [facility] DATE CREATED AUTHOR AUTHOR'S ORGANIZ ATION 06/23/2024 [facility] DATE CREATED AUTHOR AUTHOR'S ORGANIZ ATION 08/10/2024 [facility] DATE CREATED AUTHOR AUTHOR'S ORGANIZ ATION 12/03/2024 [facility] DATE CREATED AUTHOR AUTHOR'S ORGANIZ ATION 02/02/2025 [facility] REASON FOR VISIT (unrecogniz ed section [...] July 04, 2024 End: July 04, 2024 Cp Bleacher Operator Relationship Specialty Start Date End Date Robert Villasenor DO [address] [facility] [place] [id number] PCP - General Internal Medicine 07/06/24 Team [...] July 25, 2024 End: July 25, 2024 Cp Bleacher Operator Relationship Specialty Start Date End Date Robert Villasenor DO [address] [place] [id number] PCP - General Internal Medicine 07/06/24 Team [...] dose on Tue07/07/24 at 0900, Until Discontinued 075 (Given - Provider: Irma Villagomez RN) 0843 (Given - Provider: Bhavani Anderson RN) 0843 (Given - Provider: Bhavani Anderson RN) clonazePAM (KLONOPIN) tablet 1 mg 1 mg, Oral, NIGHTLY, First dose on Tue07/06/24 at 2200, Until Discontinued 2001 (Given - Provider: Sommer Alcala, FLETCHER) 2055 (Given - Provider: Chrissy Cuellar, FLETCHER) 2099 (Due) gabapentin (NEURONTIN) capsule 200 mg 200 mg, Oral, 2 TIMES DAILY, First dose on Tue07/07/24 at 1000, Until Discontinued 0755 (Given - Provider: Irma Villagomez RN)2001 (Given - Provider: Sommer Alcala, RN) 842 (Given - Provider: Bhavani Anderson, FLETCHER)2055 (Given - Provider: Chrissy Cuellar RN) 08 [...] check 1109 (Given - Provider: Kimberlyn Chakraborty RN)160 (Not Given - Provider: Bhavani Anderson RN - Reason: Order parameters not met)2056 (Given - Provider: Chrissy Cuellar RN) 0713 [...] RN)2055 (Given - Provider: Chrissy Cuellar, FLETCHER) 0840 [...] RN)2130 (Given - Provider: Sommer Alcala RN) 0533 (Given - Provider: Sommer Alcala, FLETCHER)1702 [...] for injection by adding 1 mL of instrumentation chemist-supplied sterile diluent or sterile water for injection [...] Irma Villagomez RN)1724 (Given - Provider: Irma R Kretz, RN)2130 (Given - Provider: Sommer Alcala RN) 0134 (See Alternative - Provider: Sommer Alcala RN)0532 (Given - Provider: Sommer Alcala RN)0944 (Given - Provider: Bhavani Anderson, FLETCHER)1555 (Given - Provider: Bhavani Anderson, RN)205 (Given - Provider: Chrissy Cuellar, RN) 0353 (See Alternative - Provider: Chirssy Cuellar RN)0843 (Given - Provider: Bhavani Anderson, [...] PRN, Starting on 07/08/24 at 1950, Until Tue07/09/24 at 1949, Pain Moderate (4-6), allowed for higher pain score per patient request, If oral and IV narcotics ordered, use oral first and only use IV if oral is ineffective or cannot take oral. Do Not give oral and IV within 1 hour of each other unless specifically ordered., Post-op 0656 (Given - Provider: Bijal Zavala RN)1109 (See Alternative - Provider: Irma Villagomez, FLETCHER) [...] BE BASED ON THE PRIMARY CLINICAL RECORDS. [employer] [facility]. provides no warranty or guarantee of the accuracy or completeness of information in this document.
--- OUTSIDE RECORDS SUMMARY | 2025-02-06 09:53 | XMS_ITS | Patient Health Record ---
Author Organization [facility] Address [address] [place] [address] Care Team Providers Care Digital Tech Name Role Phone MICA CRUZ DO Primary Care Provider UnavailTomás Braxton Unavailable [phone] Eloise Meehan Unavailable [phone] Norbert Lewis Unavailable [phone] Dank Sams Unavailable [phone] Norbert Lamar Unavailable [phone] Henok Rosario Unavailable [phone] Brandi Duque Unavailable Allergies Allergen (clinical drug ingredient) Drug/Non Drug Allergy documented on EMR Reaction Allergy Type Onset Date Status meperidine dermerol (uncoded) Unknown Allergy Active Latex latex (uncoded) Unknown Allergy Acti ve DHEA Unknown Drug Allergy Active etodolac Lodine Unknown Drug Allergy Active Results Component Value Reference Range Notes MRI : Shoulder W/O Contrast Right - 65510 Reviewed date:05/01/2024 03:44:41 PM Interpretation: Performing Lab: Notes/Report: XR LUMBAR SPINE 1 VW Reviewed date:07/11/2024 01:53:12 PM Interpretation: Performing Lab: Notes/Report: MOBILE LATERAL LUMBAR SPINE: [facility] [address], [place] [address], Original Ordering Provider: Magdaleno GREWAL Provider Role: Ordering XR LUMBAR SPINE 1 VW Reviewed date:07/11/2024 01:53:12 PM Interpretation: Performing Lab: Notes/Report: PROCEDURE: XR LUMBAR SPINE 1 VW [facility] [address], [place] [address], Original Ordering Provider: Magdaleno GREWAL Provider Role: Ordering SCC- SHOULDER 3 VIEW RIGHT 7 3030 Reviewed date:05/01/2024 03:44:49 PM Interpretation: Performing Lab: Notes/Report: CT Arthrogram - Right Should er Reviewed date:06/27/2024 12:33:41 PM Interpretation: Performing Lab: Notes/Report: Surgery Scheduling (Not yet reviewed by provider) Interpretation:Pre-Op orders: CBC,BMP,HGA1C. PT/TT, TYPE AND SCREEN,RSA NASAL SWAB Performing Lab: Notes/Report: Pre-Op orders: CBC,BMP,HGA1C. PT/TT, TYPE AND SCREEN,RSA NASAL SWAB Primary Insurance Company: MEDICARE [employer] [facility] [employer] [facility] Surgeon/Assist: ST STODDARD/NORBERT OR DANK Surgery Location: [facility] Surgery Date & Time: 03/05/25 @ 10:15AM Hosp arrival time day of: 8:15AM Surgery End Time: 12:15PM Procedure: HARDWARE REMOVAL L4- 5, L3-4 DECOMPRESSION AND FUSION WITH EXTENSION TO L3 Special Equipment: SSEP, PRONE, SHERITA TABLE, SURGALIGN Diagnosis: M48.061 STENOSIS Admission Type: OUTPATIENT Anesthesia Type/CPNB: GENERAL Bed 48 HOURS Post-op Appointment Date: 04/11/25 @ 10:10AM JIM Lab Location: [facility] Relay Mechanic: NORMA Weaver Physician: HAMILTON Weaver Appt Date/T 02/22/25 @ 11:00AM History & Physical Appointme nt Date/: 02/28/25 @ 9:10AM JIM MRI KNEE RIGHT WO CONTRAST ( Not yet reviewed by provider) Interpretation: Performing Lab: Notes/Report: EXAM: MRI KNEE RIGHT WO CONTRAST Performed at: [address] [address] Reason For Referral Reason REFERRAL TO [facility] Diagnosis 1 DDD (degenerative di sc disease), cervical (M50.30) Referral Organization [facility] Referring Provider First Name Eloise Referring Provider Last Name St Stoddard Referring Provider Speciality Orthopedic Surgery Referred Organization Pain clinic General Notes Norma Kendall 2023 10:19:59 AM >, Norma Kendall 04/03/2024 03:22:45 PM >FAXED TO [facility] Referral Priority Routine Reason RAMO................. PLEASE OBTAIN AUTHORIZATION FOR RIGHT SHOULDER MRI - SEE NOTES Diagnosis 1 Acute pain of right shoulder (M25.511) Referral Organization [facility] Referring Provider First Name Norbert Referring Provider Last Name Lamar Referring Provider Speciality Orthopedic Surgery Referred Organization [facility] Referred Address [place], [place], Procedure 1 MRI Joint Upper Ext w/o Dye (31986) General Notes Cinthya Vila 2023 12:11:06 PM >ANTHEM INSURACNE ENDS TUESDAY, Rajni Benton 04/02/2024 04:08:03 PM >PER AMYN: The following solutions for the service date entered do not require Pre-Authorization by Roberta. Please note that benefit limits, if applicable, will still be applied. Contact the health plan using the number on the back of the member's ID card if you have any questions regarding coverage or Pre-Authorization requirements. LANI NOTIFIED REF FAXED TO Cadence HOPKINS Monica 04/03/2024 08:53:22 AM > FAXED ORDER, SENT MESSAGE Referral Priority Routine Reason RAMO................. .....PLEASE OBTAIN AUTHORIZATION FOR CT ARTHROGRAM RIGHT SHOULDER Diagnosis 1 Acute pain of right shoulder (M25.511) Referral Organization [facility] Referring Provider First Name Norbert Referring Provider Last Name Lamar Referring Provider Speciality Orthopedic Surgery Referred Organization [facility] Referred Address [place], [place] Procedure [address] CT UPPER EXTREMITY W /DYE (53659) General Notes aRjni Benton 025 01:33:00 PM >PER AVAILITY/DEVOTED, NO AUTH REQUIRED MA NOTIFIED REF FAXED TO Cadence HOPKINS Monica 04/30/2024 01:50:59 PM > FAXED ORDER Referral Priority Routine Reason RIGHT SHOULDER ASPIR ATION AND CULTURES PLEASE CONTACT PATIENT TO SET UP Diagnosis 1 Acute pain of right shoulder (M25.511) Diagnosis 2 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 Diagnosis 1 Primary osteoarthrit is of right knee (M17.11) Referral Organization [facility] Referring Provider First Name Tomás Referring Provider Last Name Danie Referring Provider Speciality Orthopedic Surgery Referred Organization [facility] Procedure 1 MRI Joint Lower Ext w/o Dye (21438) General Notes Rajni Benton 025 08:45:19 AM >APPROVED PER DEVOTED AUTH #[id number] VALID 11/14/2024-02/14/2025 COPY IN CHART MA NOTIFIED REF FAXED TO [facility], [facility], FACILITY HAS BEEN CHANGED TO [facility] CALL REF #[id number] WILL TAKE 48 HOURS TO UPDATE, Uma Valladares 11/13/2024 03:06:40 PM >ORDER FAXED Referral Priority Routine Reason APPROVED............ ....................NOT SCHEDULED...................................DEVOTED MCR MRI LUMBAR TO BE DONE AT [facility] Diagnosis 1 Right sided sciatica (M54.31) Referral Organization [facility] Referring Provider First Name Eloise Referring Provider Last Name Zoran Referring Provider Speciality Orthopedic Surgery Referred Organization [facility] Referred Address [place], [place], Procedure 1 MRI Lumbar Spine w/o Dye (49306) General Notes Norma Kendall 2024 10:13:59 AM >, Lula Slaughter 12/27/2024 10:18:38 AM > WAITING ON TODAY'S OFFICE NOTE, Lula Slaughter 01/02/2025 11:36:39 AM > DEVOTED ACTIVE AND EFFECTIVE 03/25/24 PER DEVOTED PAYER SPACE. AUTHORIZATION # [id number] APPROVED AND VALID 01/03/25-04/24/25 PER DEVOTED PAYER SPACE. SCANNED INTO CHART AND FAXED TO [facility].Deshaun Anaya 01/03/2025 10:51:09 AM > faxed Referral Priority Routine Reason RFERRAL FOR [facility] FOR EVAL AND TREAT Diagnosis 1 Lumbar stenosis with neurogenic claudication (M48.062) Referral Organization [facility] Referring Provider First Name Eloise Referring Provider Last Name St Stoddard Referring Provider Speciality Orthopedic Surgery Referred Organization [facility] Referred Address [address],[place], [place],[address], General Notes Norma Kendall 2024 03:39:59 PM >REFERRAL FAXED Referral Priority Routine Reason APPROVED OUTPATIENT...................................03/05/25........................... ........DEVOTED MCR HARDWARE REMOVAL L4-5, L3-4 DECOMPRESSION AND FUSION WITH EXTENSION TO L3 42325, 72254, 63966, [address] Diagnos is 1 Spondylolisthesis, lumbar region (M43.16 ) Diagnos is 2 Spinal stenosis, lumbar region without n eurogenic claudication (M48.061) Diagnos is 3 Lumbar radiculopathy (M54.16) Referra l [facility] Referri ng Provide r First Name Eloise Arriagari rosalba Provide r Last Name St Kenya navarrete Provide r Special ity Orthopedic Surgery Referre d [facility] Address [address], [place],[id number],[place] Procedu re 1 Arthrodesis, posterior lumbar, 1 lumbar level (25478) Procedu re 2 Laminectomy, facetectomy and foraminotom y single lumbar (39836) Procedu re 3 Posterior non-segmental instrumentation (94240) Procedu re 4 Autograft for spine surgery only; local obtained from same incision (20813) General Notes Norma Kendall 01/22/2025 08:14:41 AM >, Sukhjinder Lula 02/01/2025 10:21:29 AM > DEVOTED ACTIVE AND EFFECTIVE 03/25/24 PER DEVOTED PAYER SPACE ON AVAILITY. [place] [address] AND [address] PER DEVOTED PAYER SPACE. SCANNED INTO CHART. AUTHORIZATION REQUEST SUBMITTED FOR ALL OTHER CODES WITH CLINICALS, PENDING AUTHORIZATION # [id number], Sukhjinder Lula 02/04/2025 03:20:54 PM > AUTHORIZATION # [id number] APPROVED OUTPATIENT AND VALID 03/05/25-05/25/25 PER FAX BACK FROM DEVOTED. SCANNED INTO CHART. PLEASE CHANGE AND SEND BACK., Faiza Norma 02/05/2025 07:32:27 AM >CHANGE TO OUTPATIENT, Sukhjinder, Lula 02/05/2025 07:33:10 AM > THANK YOU, FAXED TO [facility]. Referra l Priorit y Routine Medications Medication SIG (Take, Route, Frequency, Duration) Notes Start Date End Date Status clonazePAM Active etodolac Active Social History Tobacco Use: Social History Observation Description Date Details (start date - stop date) Never Smoker NA - NA AUDIT-C (Standard) Question Answer Notes Did you [...] Problem Status W/U Status Risk Notes Problem [id number] Lumbar radiculopathy (M54.16) Active confirmed Problem 344031409 Arthrodesis status (Z98.1) Active confirmed Problem 533363408553313 Pain, joint, knee, right (M25.561) Active confirmed Problem 10750812 Cervical pain (M54.2) Active confirmed Problem 692326607 Spondylolisthesi s , cervical region (M43.12) Active confirmed Problem Acquired spondylolisthesis (253572315) Spondylolisthesis , lumbar region (M43.16) Active confirmed Problem Displacement of lumbar intervertebral disc without myelopathy (74550108) Other intervertebral disc displacement, lumbar region (M51.26) Active confirmed Problem 385270521 Encounter for change or removal of drains (Z48.03) Active confirmed Problem 393113325364297 detention (current) use of opiate analgesic (Z79.891) Active confirmed Problem 067598639835208 Primary osteoarthritis of right knee (M17.11) Active confirmed Problem 987567995948780 Sciatica of righ t side (M54.31) Active confirmed Problem 242215635 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) Active confirmed Problem 167834509 Lumbar spondylosis (M47.816) Active confirmed Problem 120363592500423 Right sided sciatica (M54.31) Active confirmed Problem 8538966166 Acute pain of right shoulder (M25.511) Active confirmed Problem 02746999 Other cervical disc degeneration at C4-C5 level (M50.321) Active confirmed Problem Spinal stenosis of lumbar region (73856704) Spinal stenosis, lumbar region without neurogenic claudication (M48.061) Active confirmed Problem 68109002 Lumbar stenosis with neurogenic claudication (M48.062) Active confirmed Problem 674105848 Encounter for other orthopedic aftercare (Z47.89) Active confirmed Problem 787610193 Neuroforaminal stenosis of lumbar spine (M48.061) Active confirmed Problem Other intervertebral disc degeneration, lumbar region with discogenic back pain and lower extremity pain (M51.362) Active confirmed Vital Signs Height 5'1 in 01/10/2025 Weight 175 lbs 01/10/2025 BMI 33.06 01/10/2025 Encounters Encounter Location Date Provider Diagnosis [facility] [place] [address] 03/30/2024 Brandi [place] Spondylolisthesis, cervical region M43.12 ; Other cervical disc degeneration at C4-C5 level M50.321 and Arthrodesis status Z98.1 [facility] [place] [address] 04/02/2024 Norbert Lamar Acute pain of right shoulder M25.511 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 and History of right shoulder replacement Z96.611 [facility] [address] [place] [address] 07/06/2024 Dank Diglio Sciatica of right si de M54.31 and Lumbar spondylosis M47.816 [facility] Inpatient [address] [place], [place] [id number] 07/07/2024 Dank Diglio Spinal stenosis, lumbar region without neurogenic claudication M48.061 ; Other intervertebral disc displacement, lumbar region M51.26 and Spondylolisthesis, lumbar region M43.16 [facility] Inpatient [address] [place], [place] [id number] 07/08/2024 Selvon Zoran Spinal stenosis, lumbar region without neurogenic claudication M48.061 ; Other intervertebral disc displacement, lumbar region M51.26 ; Spondylolisthesis, lumbar region M43.16 and Other intervertebral disc degeneration, lumbar region with discogenic back pain and lower extremity pain M51.362 [facility] [place] [facility] [address] [facility] [place] [address] 07/13/2024 [facility] Encounter for other orthopedic aftercare Z47.89 ; Encounter for change or removal of drains Z48.03 and Arthrodesis status Z98.1 [facility] Office [address] [place] [address] [place] [address] 07/27/2024 [facility] Encounter for other orthopedic aftercare Z47.89 and Arthrodesis status Z98.1 [facility] Office [address] [facility] [place] [address] 08/24/[address] [facility] Encounter for other orthopedic aftercare Z47.89 ; Arthrodesis status Z98.1 and detention (current) use of opiate analgesic Z79.891 [facility] [address] [place] [address] 10/01/2024 Tomás Helton Pain, joint, knee, right M25.561 and Primary osteoarthritis of right knee M17.11 [facility] [address] [place] [address] 10/19/2024 Norbert Joshua Aftercare following surgery of the musculoskeletal system Z47.89 [facility] [address] [place] [address] 11/12/2024 Tomás Helton Primary osteoarthrit is of right knee M17.11 [facility] [address] [place] [address] 12/14/2024 Eloise Knox Clair Greater trochanteric bursitis of right hip M70.61 ; Aftercare following surgery of the musculoskeletal system Z47.89 and Trochanteric bursitis of right hip M70.61 [facility] [address] [place] [address] 12/27/2024 Dank Sams Right sided sciatica M54.31 and Aftercare following surgery of the musculoskeletal system Z47.89 [facility] [address] [place] [address] 01/10/2025 Eloise Knox Clair Lumbar stenosis with neurogenic claudication M48.062 ; Lumbar radiculopathy M54.16 ; Aftercare following surgery of the musculoskeletal system Z47.89 and Neuroforaminal stenosis of lumbar spine M48.061 [facility] [address] [place] [address] 06/26/2024 [place] [address] [place] [address] 06/27/2024 Henok [place] [address] [place] [address] 07/12/2024 Eloise Meehan [place] [address] [place] [address] 07/20/2024 Selvon Zoran Aftercare following surgery of the musculoskeletal system Z47.89 [facility] [address] [place] [address] 07/30/2024 Norbertfelicia Lewis Spondylolisthesis, lumbar region M43.16 ; Spinal stenosis, lumbar region without neurogenic claudication M48.061 and Aftercare following surgery of the musculoskeletal system Z47.89 [place] [address] [place] [address] 09/12/[address] [place] [address] 12/17/2024 Selvon [place] [address] [place] [address] 12/26/2024 Selvon Zoran [address] [place] [address] 01/17/2025 Selvon Zoran Assessments Encounter Date Diagnosis (ICD [...] s/p L3-5 decompression and L4-S1 fusion 08/24/2024 Encounter for other orthopedic aftercare (ICD-10 - Z47.89) 1. 6 weeks s/p L3-5 decompression and L4-S1 fusion 10/01/2024 Pain, joint, knee, right (ICD-10 - M25.561) Right knee [facility] 10/01/2024 Primary osteoarthritis of right knee (ICD-10 - M17.11) Right knee [facility] 10/19/2024 Aftercare following surgery of the musculoskeletal system (ICD-10 - Z47.89) 1. 3 months status post L3-L5 decompression L4-L5 fusion 11/12/2024 Primary osteoarthritis of right knee (ICD-10 - M17.11) right knee internal derangement right knee arthritis 12/14/2024 Aftercare following surgery of the musculoskeletal system (ICD-10 - Z47.89) Carroll, a female patient approximately 6 months post L3-L5 spinal fusion, presents with worsening pain and numbness in the right leg after a fall 3 weeks ago, landing on her tailbone. Right Greater Trochanteric Bursitis Assessment: Patient reports worsening pain from the right hip to the knee following a fall 3 weeks ago. Physical examination reveals positive straight leg raise on the right, negative on the left. Palpation of the right greater trochanter elicits pain, consistent with greater trochanteric bursitis. X-rays of the lumbar spine show good overall alignment at L4-L5 with no complications from hardware or misplaced screws. The primary diagnosis is right greater trochanteric bursitis, with the pain likely originating from the hip rather than the back. 12/14/2024 Greater trochanteric bursitis of right hip (ICD-10 - M70.61) Carroll, a female patient approximately 6 months post L3-L5 spinal fusion, presents with worsening pain and numbness in the right leg after a fall 3 weeks ago, landing on her tailbone. Right Greater Trochanteric Bursitis Assessment: Patient reports worsening pain from the right hip to the knee following a fall 3 weeks ago. Physical examination reveals positive straight leg raise on the right, negative on the left. Palpation of the right greater trochanter elicits pain, consistent with greater trochanteric bursitis. X-rays of the lumbar spine show good overall alignment at L4-L5 with no complications from hardware or misplaced screws. The primary diagnosis is right greater trochanteric bursitis, with the pain likely originating from the hip rather than the back. 12/27/2024 Aftercare following surgery of the musculoskeletal system (ICD-10 - Z47.89) 1. 6 months status post L3-5 decompression and L4-5 fusion with complaints of persistent right sciatica 12/27/2024 Right sided sciatica (ICD-10 - M54.31) 1. 6 months status post L3-5 decompression and L4-5 fusion with complaints of persistent right sciatica 07/08/2024 Other intervertebral disc displacement, lumbar region (ICD-10 - M51.26) 07/08/2024 Spinal stenosis, lumbar region without neurogenic claudication (ICD-10 - M48.061) 01/10/2025 Lumbar radiculopathy (ICD-10 - M54.16) 1. Right L3-4 foraminal stenosis with radiculopathy Supporting findings: MRI showing bone spur causing severe foraminal stenosis at L3-4 on right side Right leg radicular pain extending to foot Right iliopsoas weakness (4-5/5 strength) Pain localized to anterior region consistent with L3-4 nerve distribution Symptoms worse than prior to previous L4-5 surgery Differential diagnoses: Hardware-relate d pain, adjacent segment disease 2. Status post L4-5 laminectomy and fusion with good hardware positioning Supporting findings: MRI shows screws and hardware in appropriate position L4-5 level shows adequate decompression without nerve compression 01/10/2025 Lumbar stenosis with neurogenic claudication (ICD-10 - M48.062) 1. Right L3-4 foraminal stenosis with radiculopathy Supporting findings: MRI showing bone spur causing severe foraminal stenosis at L3-4 on right side Right leg radicular pain extending to foot Right iliopsoas weakness (4-5/5 strength) Pain localized to anterior region consistent with L3-4 nerve distribution Symptoms worse than prior to previous L4-5 surgery Differential diagnoses: Hardware-relate d pain, adjacent segment disease 2. Status post L4-5 laminectomy and fusion with good hardware positioning Supporting findings: MRI shows screws and hardware in appropriate position L4-5 level shows adequate decompression without nerve compression 07/13/2024 Arthrodesis status (ICD-10 - Z98.1) 1.5 days s/p L3-5 decompression/f usion 01/10/2025 Aftercare following surgery of the musculoskeletal system (ICD-10 - Z47.89) 1. Right L3-4 foraminal stenosis with radiculopathy Supporting findings: MRI showing bone spur causing severe foraminal stenosis at L3-4 on right side Right leg radicular pain extending to foot Right iliopsoas weakness (4-5/5 strength) Pain localized to anterior region consistent with L3-4 nerve distribution Symptoms worse than prior to previous L4-5 surgery Differential diagnoses: Hardware-relate d pain, adjacent segment disease 2. Status post L4-5 laminectomy and fusion with good hardware positioning Supporting findings: MRI shows screws and hardware in appropriate position L4-5 level shows adequate decompression without nerve compression 08/24/2024 [employer] (current) use of opiate analgesic (ICD-10 - [...] painful total shoulder arthroplasty with subscapularis failure 12/14/2024 Trochanteric bursitis of right hip (ICD-10 - M70.61) Carroll, a female patient approximately 6 months post L3-L5 spinal fusion, presents with worsening pain and numbness in the right leg after a fall 3 weeks ago, landing on her tailbone. Right Greater Trochanteric Bursitis Assessment: Patient reports worsening pain from the right hip to the knee following a fall 3 weeks ago. Physical examination reveals positive straight leg raise on the right, negative on the left. Palpation of the right greater trochanter elicits pain, consistent with greater trochanteric bursitis. X-rays of the lumbar spine show good overall alignment at L4-L5 with no complications from hardware or misplaced screws. The primary diagnosis is right greater trochanteric bursitis, with the pain likely originating from the hip rather than the back. 01/10/2025 Neuroforaminal stenosis of lumbar spine (ICD-10 - M48.061) 1. Right L3-4 foraminal stenosis with radiculopathy Supporting findings: MRI showing bone spur causing severe foraminal stenosis at L3-4 on right side Right leg radicular pain extending to foot Right iliopsoas weakness (4-5/5 strength) Pain localized to anterior region consistent with L3-4 nerve distribution Symptoms worse than prior to previous L4-5 surgery Differential diagnoses: Hardware-relate d pain, adjacent segment disease 2. 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 Veliz. [...] shoulder arthroplasty she prefers to follow-up at [facility] and not the [facility]. I recommended a CT arthrogram to [...] s/p L3-5 decompression and L4-S1 fusion 10/01/2024 Other Discussion had today with the patient regarding her right knee pain. She does have medial compartment narrowing. We discussed treatment options. She would like to try corticosteroid injection. Injection performed in the office today. Patient tolerated quite well. Will see her back in the office in 6 weeks Right knee OAM 10/19/2024 Other Plan established by Dr. Veliz. At this time, patient is doing well from surgery. Will see her back in the office in 3 months for reevaluation. The patient is very much in agreement with the treatment and/or diagnostic plan set forth and all questions were answered to the patient's satisfaction. Thanks once again. If we can be of further service to your patients with disorders of the spine, cervical, thoracic, or lumbar, please do not hesitate to contact Dr. Veliz. Best regards, 1. 3 months status post L3-L5 decompression L4-L5 fusion 11/12/2024 Other Discussion had today with Carroll regarding her right knee pain. Overall her prior x-rays that I reviewed today in the office do demonstrate some arthritis however it does not appear to be too severe in nature. Does have mechanical symptoms. Decision would be between total knee arthroplasty and knee scope meniscectomy. Do recommend obtaining a MRI to evaluate the joint for meniscal tear. Follow-up upon completion of MRI right knee internal derangement right knee arthritis 12/14/2024 Other Plan - Administer steroid injection to the right greater trochanteric bursa today - Initiate physical therapy - If symptoms do not improve with injection and physical therapy, order MRI of the back - Follow up to assess response to treatment Status Post L3-L5 Spinal Fusion Assessment: Patient is approximately 6 months post L3-L5 spinal fusion. X-rays show good overall alignment at L4-L5 with no complications from hardware. There are no signs of fractures or misplaced screws. Plan - Continue to monitor post-surgical progress - Reassess if back pain or new neurological symptoms develop Carroll, a female patient approximately 6 months post L3-L5 spinal fusion, presents with worsening pain and numbness in the right leg after a fall 3 weeks ago, landing on her tailbone. Right Greater Trochanteric Bursitis Assessment: Patient reports worsening pain from the right hip to the knee following a fall 3 weeks ago. Physical examination reveals positive straight leg raise on the right, negative on the left. Palpation of the right greater trochanter elicits pain, consistent with greater trochanteric bursitis. X-rays of the lumbar spine show good overall alignment at L4-L5 with no complications from hardware or misplaced screws. The primary diagnosis is right greater trochanteric bursitis, with the pain likely originating from the hip rather than the back. 12/27/2024 Other Plan established by Dr. Veliz. At this time, set the patient up with an updated MRI of the lumbar spine. She was also given prescriptions for tramadol and Medrol Dosepak. We will see her back after the imaging is completed to discuss the results and treatment options. The patient is very much in agreement with the treatment and/or diagnostic plan set forth and all questions were answered to the patient's satisfaction. Thanks once again. If we can be of further service to your patients with disorders of the spine, cervical, thoracic, or lumbar, please do not hesitate to contact Dr. Veliz. Best regards, 1. 6 months status post L3-5 decompression and L4-5 fusion with complaints of persistent right sciatica 01/10/2025 Other Plan 1. 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 Right L3-4 foraminal stenosis with radiculopathy Supporting findings: MRI showing bone spur causing severe foraminal stenosis at L3-4 on right side Right leg radicular pain extending to foot Right iliopsoas weakness (4-5/5 strength) Pain localized to anterior region consistent with L3-4 nerve distribution Symptoms worse than prior to previous L4-5 surgery Differential diagnoses: Hardware-relate d pain, adjacent segment disease 2. Status post L4-5 laminectomy and fusion with good hardware positioning Supporting findings: MRI shows screws and hardware in appropriate position L4-5 level shows adequate decompression without nerve compression Plan Of Treatment Pending Test Test Name Order Date Lumbar spine, 4v flex ext - 42617 2024 Lumbar spine 2v ap and lat - 09866 07/27 Lumbar spine 2v ap and lat - 65642 10/19 Lumbar spine 2v ap and lat - 25581 12/14 Cell count 05/30/2024 Cervical spine,ap,lat,flex,ext - 89717 1 05/31/2023 MRI : Knee W/O Contrast Right - 28280 EKG 06/27/2024 CBC 01/10/2025 Crystals 05/30/2024 HGB A1C 01/10/2025 PT/PTT 01/10/2025 BMP 01/10/2025 BMP 06/27/2024 Surgery Scheduling 01/24/2025 MRSA (Bilateral Nares) PCR 01/10/2025 MRSA (Bilateral Nares) PCR 06/27/2024 SFS - Lumbar Spine PT Order, Isometrics & Strenghening w/Modalities as needed, 2-3 times per week for 6 weeks 07/27/2024 SFS - Lumbar Spine PT Order, Isometrics & Strenghening w/Modalities as needed, 2-3 times per week for 6 weeks 12/14/2024 CBC W Diff 05/30/2024 Type and Screen 06/27/2024 Urinalysis w/Reflex C and S 06/27/2024 AEROBIC AND ANAEROBIC CULTURE 05/30/2024 MRI KNEE RIGHT WO CONTRAST 12/01/2024 SCC- KNEE 4 VIEW RIGHT 53783 10/01/2024 FACET INJECTION 03/30/2024 ESR, CRP 05/30/2024 Aspiration for cultrues of Right shoulde r 05/30/2024 MRI : Lumbosacral Spine W/O Contrast - 7 214712/27/2024 Next Appt Details Provider Name:Eloise Ny, 02/28/2025 09:10:00 AM, [address] [place], [address], Provider Name:Eloise Mitchell [facility] air, 03/05/2025 10:30:00 AM, [address] [place], [place], [phone], Provider Name:Eloise Knox Cl air, 04/11/2025 10:10:00 AM, [address] [place] [address], [phone], Insurance Providers Payer Name Payer Address Payer Phone Subscriber Number Group Number Insured Name Patient Relationship to Insured Coverage Start Date Coverage End Date Medicare [employer] [facility] [address] [place] [address] [id number] VIVCARROLL FITZGERALD Self - patient is the insured 4 SUSI BIGGS [address] [place] [address] [id number] DACARROLL FITZGERALD Self - patient is the insured 4 [place] [phone] [id number] CARROLL HARDEN Self - patient is the insured Medications Administered Medication Instructions Date of Administration Dosage Notes BUPIVACAINE 12/14/2024 5 mL Depo-Medrol 12/14/2024 1 mL lidocaine 12/14/2024 5 mL Medical (General) History Medical History History ICD Code High Blood Pressure Diabetes Thyroid disease Osteoporosis Osteoarthritis Depression 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
--- OUTSIDE RECORDS SUMMARY | 2025-02-06 09:53 | XMS_ITS | Encounter Summary ---
Author Organization [facility] Address [address] [place] [address] Care Team Providers Care Machine Sander Name Role Phone Robert Cruz DO Primary Care Provider [phone] Encounter Details Date Type Department Care Team (Late st Contact Info) Description 10/01/2022 Abstract [facility] [address] [place] [address] Isreal Clark, [place] [address] [place] [address] Social History Tobacco Use Types Packs/Day Years [...] on filedocumented in this encounter Care Teams Machine Sander Relationship Specialty Start Date End Date Robert Cruz DO PCP - General Internal Medicine 10/01/22 documented as of this encounter
--- OUTSIDE RECORDS SUMMARY | 2025-02-06 09:53 | XMS_ITS | Clinical Summary ---
Author Organization [facility] Address [address] [place] [address] Care Team Providers Care Snow Maker Name Role Phone Robert Cruz Primary Care Provider [phone] Medications No known medications Active Problems No [...] Not on file Insurance BCBS Care Teams Snow Maker Relationship Specialty Start Date End Date Robert Cruz DO PCP - General Internal Medicine 10/01/22
--- OUTSIDE RECORDS SUMMARY | 2025-02-06 09:53 | XMS_ITS | Clinical Summary ---
Author Organization [facility] Address [id number] [address] [id number] Care Team Providers Care Ship Construction Teacher Name Role Phone Unavailable Primary Care Provider [...] file Plan of Treatment Not on file Medical Devices Not on file
--- OUTSIDE RECORDS SUMMARY | 2025-02-06 09:53 | XMS_ITS | Clinical Summary ---
Author Organization [facility] Address [address] [place], [place] [id number] Care Team Providers Care Driver Recruiter Name Role Phone Robert Cruz Primary Care Provider [phone] Allergies Active Allergy Reactions Criticality Noted Date [...] before breakfast. 3 8 Active rizatriptan (MAXALT REMEDIAL TEACHER) 10 mg disintegrating tablet DISSOLVE 1 TABLET [...] N ot on file 04/02/2020 Data from: https://www.neighborhoodatlas.medicine.[facility].edu/. Last address used for calculation Not on [...] 2) 2009 Diabetes Screening 06/07/2021 06/07/2018, 10/20/2016 Bone Density Screening 2024 Advance Directive Discussion 04/25/2024 Covid-19 Vaccine ( - season) 2024 Influenza Vaccine (#1) 2024 RSV Vaccine (1 - 1-dose 75+ series) 2034 Medical Devices Implanted Type Area Tank Truck Engine Mechanic Device Identifier Shelf Expiration Date Model / Serial / Lot Cement Simplex P Speedset Bone Radiopaque Sterile - [id number] Implanted:Qty : 1 on 06/20/2018 by Avila Garsia MD at [facility] Cement / Putty Right: Bone - Shoulder [facility] 09/23/2019 [id number] / / [id number] Mrt-Av-G-Kind Implant - [id number] Implanted:Qty : 1 on 11/18/2016 at [facility] Implant Left: Bone - Shoulder [employer] [id number] / / [id number] Gbn-Qp-X-Kind Implant - [id number] Implanted:Qty : 1 on 11/18/2016 at [facility] Implant Left: Bone - Shoulder [employer] [id number] / / [id number] All Poly Pegged Glenoid Implanted:Qty : 1 on 11/18/2016 at [facility] Implant Left: Bone - Shoulder [employer] 08/17/2021 [id number] / [id number] / [id number] Short Humeral Stem, [id number] Implanted:Qty : 1 on 06/20/2018 by Avila Garsia MD at [facility] Implant Right: Bone - Shoulder [employer] 05/10/2024 520-10-000 / / [id number] Neutral Humeral Head [id number] Implanted:Qty : 1 on 06/20/2018 by Avila Garsia MD at [facility] Implant Right: Bone - Shoulder [employer] 05/01/2024 [id number] / / [id number] Neck Hum Altivate - [id number] Implanted:Qty : 1 on 11/18/2016 at [facility] Joint - Shoulder Left: Bone - Shoulder [employer] 08/19/2022 520-07-000 / / [id number] Comp Ru Allpoly 42mm Eplus - [id number] Implanted:Qty : 1 on 06/20/2018 by Avila Garsia MD at [facility] Joint - Shoulder Right: Bone - Shoulder [employer] 01/06/2023 [id number] / / [id number] Neck Hum Altivate - [id number] Implanted:Qty : 1 on 06/20/2018 by Avila Garsia MD at [facility] Joint - Shoulder Right: Bone - Shoulder [employer] 06/06/2024 520-07-000 / / [id number] Procedures Procedure Name Priority Date/Time Associated Diagnosis Comments BASIC METABOLIC PANEL Routine 06/07/2018 11:00 AM EST Glenohumeral arthritis, right from Last 3 Months or Most Recently Relevant to Health Maintenance Results * (ABNORMAL) BASIC METABOLIC PNL (06/07/2018 11:00 AM EST) Glucose 133(H) 74 - 99 mg/dL 06/07/2018 8:31 PM [facility] Comment: The [place] Diabetes Association (ADA) provides guidance for cutoff [...] Standards of Medical Care in Diabetes 2016, [place] Diabetes Association. Diabetes Care. 2016.39(Suppl 1). BUN 24(H) 7 - 21 mg/dL 06/07/2018 8:31 PM [facility] Creatinine 0.91 0.58 - 0.96 mg/dL 06/07/2018 8:31 PM [facility] Sodium 139 136 - 144 mmol/L 06/07/2018 8:31 PM [facility] Potassium 5.1 3.7 - 5.1 mmol/L 06/07/2018 8:31 PM [facility] Chloride 100 97 - 105 mmol/L 06/07/2018 8:31 PM [facility] CO2 26 22 - 30 mmol/L 06/07/2018 8:31 PM [facility] Anion Gap 13 9 - 18 mmol/L 06/07/2018 8:31 PM EST [facility] Calcium 9.6 8.5 - 10.2 mg/dL 06/07/2018 8:31 PM EST [facility] eGFR- >60 06/07/2018 8:31 PM EST [facility] eGFR-All Other Races >60 . 06/07/2018 8:31 PM EST [facility] Comment: eGFR (Estimated GFR) Units [...] us Avila Garsia MD LABORATORY Final Result [facility] [address] [place] [address] from Last 3 Months or Most Recently Relevant to Health Maintenance Insurance [facility] PPO Advance Directives Documents on File Type Date Recorded Patient Lumber Press Operator Expl anation Advance Directive(s) 11/18/2016 6:54 AM Care Teams Driver Recruiter Relationship Specialty Start Date End Date Robert Cruz DO [address] [id number] PCP - General Internal Medicine 05/17/18
--- OUTSIDE RECORDS SUMMARY | 2025-02-06 09:53 | XMS_ITS | Clinical Summary ---
Author Organization [facility] Address [address], [address] [place] [address] Care Team Providers Care Manager Coding Name Role Phone Robert Cruz DO Primary Care Provider [phone] Allergies Active Allergy Reactions Criticality Noted Date [...] Encounters Date Type Department Care Team Description 11/23/2024 12:39 PM EDT - 11/25/2024 11:59 PM EDT Hospital Encounter [facility] MRI [address] [place] [address] Tomás Helton DO Osteoarthritis of right knee, unspecified osteoarthritis type Discharge Disposition: Home or Self Care 11/14/2024 Transcribe Orders [facility] [address] [place], [place] [id number] Tomás Helton DO Osteoarthritis of right knee, unspecified osteoarthritis type (Primary Dx) from Last 3 Months Social History Tobacco Use Types Packs/Day Years Used Date Smoking Tobacco: Never Smokeless Tobacco: Never Tobacco Cessation:Counseling Given: No Alcohol Use Standard Drinks/Week Comments Never 0 (1 standard drink = 0.6 oz pur e alcohol) [facility] Utilities Answer Date Recorded In the past 12 months has #waywire, oil, or water [employer] threatened to shut off services in your [...] any time in the past 12 m [facility], were you homeless or living in a nursing home (including now)? No 07/06/2024 Food Insecurity Answer [...] 07/06/2024 8:16 PM EDT Plan of Treatment Upcoming Encounters Date Type Department Care Team (Latest Contact Info) Description 03/05/2025 11:20 AM EST Hospital Encounter [facility] [address] [place] [address] Eloise Veliz MD [address] [place] [id number] 03/05/2025 11:20 AM EST - 03/05/2025 2:03 PM EST Surgery [facility] [address] [place] [address] Eloise Veliz MD [address] [place] [phone] HARDWARE REMOVAL L4-5, L3-4 DECOMPRESSION AND FUSION WITH EXTENSION TO L3 Scheduled Procedures Name Priority Associated Diagnoses Date/Ti me LUMBAR LAMINECTOMY FUSION INSTRUMENTATION POSTERIOR Spinal stenosis of lumbar region, unspecified whether neurogenic claudication present 03/05/2025 11:20 AM EST Health Maintenance Due Date Last Done Comments [...] DEXA (modify frequency per FRAX score) 2014 Annual Wellness Visit (Medicare Advantage) 04/25/2024 Flu vaccine (#1) 11/23/2024 02/08/2024 COVID-19 Vaccine ( season) 2024 GFR test (Diabetes, CKD 3-4, OR last GFR 15-59) 07/11/2025 07/11/2024, 07/10/2024, 07/09/2024, Additional history exists Respiratory Syncytial Virus (RSV) or age 60 yrs+ (1 - 1-dose 75+ series) 2034 Hepatitis A vaccine Aged Out No longe [...] this topic Medical Devices Implanted Type Area Ream Cutter Device Identifier Shelf Expiration Date Model / Serial / Lot Screw Spnl L45mm Dia6.5mm Post Thoracolumbosacral Co Chrom - [id number] Implanted:Qty: 2 on 07/08/2024 by Eloise Veliz MD at [facility] N/A: Spine Lumbar [employer]WD [id number] / / Screw Spnl L40mm Dia6.5mm Post Thoracolumbosacral Co Chrom - [id number] Implanted:Qty: 2 on 07/08/2024 by Eloise Veliz MD at [facility] N/A: Spine Lumbar [employer]-WD [id number] / / Set Scr Spnl L6mm Dia5.5mm Ti Brk Off Svetlana W/ Detach Cdh - [id number] Implanted:Qty: 4 on 07/08/2024 by Eloise Veliz MD at [facility] N/A: Spine Lumbar [employer]-WD [id number] / / Evan Spnl L35mm Dia5.5mm Ant Post Thoracolumbosacral Ti - [id number] Implanted:Qty: 2 on 07/08/2024 by Eloise Veliz MD at [facility] N/A: Spine Lumbar [employer] JUAN HOLGUIN-WD [id number] / / Procedures Procedure Name Priority Date/Time Associated Diagnosis Comments MRI KNEE RIGHT WO CONTRAST Routine 11/23/2024 1:14 PM EDT Osteoarthritis of right knee, unspecified osteoarthritis type GLOMERULAR FILTRATION RATE, ESTIMATED Routine 07/11/2024 6:43 AM EDT from Last 3 Months or Most Recently Relevant to Health Maintenance Results * MRI KNEE RIGHT WO CONTRAST (11/23/2024 1:14 PM EDT) Anatomical Region Laterality Modality Thigh, Knee, Leg Magnetic Resona nce 11/23/2024 1:14 PM EDT Impressions 12/01/2024 6:01 AM EDT 1. Similar slight progression of moderate to [...] 4. No acute ligamentous injury. No fracture. Narrative 12/01/2024 6:01 AM EDT EXAM: MRI KNEE RIGHT WO CONTRAST HISTORY: [...] signal intensity. BONES: No fracture is seen. Procedure Note Isreal Garcia DO - 12/01/2024 EXAM: MRI KNEE RIGHT WO CONTRAST HISTORY: Osteoarthritis of right knee, unspecified osteoarthritis type;right knee pain since June. Right leg weakness with twisting. History of torn meniscus with repair 15 years ago. COMPARISON: MRI right knee 08/23/2022. TECHNIQUE: Multiplanar multisequence MRI of the right knee was performed without contrast. This included axial STIR, coronal and sagittal PDfat-sat, sagittal T2 and coronal T1 imaging. FINDINGS: MENISCI: Study is somewhat motion degraded. There is redemonstration of an oblique undersurface tear of the posterior horn to posterior junction ofthe medial meniscus. Some progressive free edge and undersurface irregularityof the posterior horn is noted. No perimeniscal cyst is identified. Mild free edge irregularity of the posterior horn of the lateral meniscus appears new. LIGAMENTS: The cruciate and collateral ligaments appear intact. TENDONS: The iliotibial band, biceps femoris, quadriceps, patellar and popliteus tendons are intact. Enthesophyte at the quadriceps tendoninsertion. TIBIOFEMORAL JOINT: Intermediate grade chondral loss along theweightbearing medial femoral condyle with low to intermediate chondral loss of themedial tibial plateau. Intermediate to high-grade chondral loss along theposterior weightbearing lateral femoral condyle and posterior aspect along thetibial plateau. PATELLOFEMORAL JOINT: Intermediate to high-grade chondral loss at thepatellar apex and lateral patellar facet. Similar findings along the lateralfemoral trochlea. The patella is normally located in the trochlear groove. The tibialtubercle to trochlear groove interval appears within normal limits. SOFT TISSUES: Small knee joint effusion. Popliteal cyst measures 2.2 x 0.4x 1.4 cm. The visualized musculature appears of normal signal intensity. BONES: No fracture is seen. IMPRESSION: 1. Similar slight progression of moderate to severe patellofemoral joint osteoarthritis with moderate medial and mild to moderate lateraltibiofemoral compartment osteoarthritis. 2. Slight progressive tear of the free edge and undersurface of theposterior horn to posterior junction of the medial meniscus. 3. Mild interval free edge tear of the posterior horn of the lateralmeniscus. 4. No acute ligamentous injury. No fracture. us Tomás Helton DO IMG MRI ORDERABLES Final Resu lt * Glomerular Filtration Rate, Estimated (07/11/2024 6:43 AM EDT) [facility] Sajan Jama [facility] Rate 62 >60 ml/min/1.7 3m2 07/11/2024 7:21 AM EDT [facility] Comment: Pediatric calculator link https://www.kidney.org/professionals/kdoqi/gfr_calculatorped Effective [...] that affects renal tubular secretion. Performed at [facility] [address] [place] [address] 07/11/2024 6:43 AM EDT 07/11/2024 6:43 AM EDT us Dank [facility] CHEMISTRY ORDERABLES Final Resu lt [facility] [address] [place] [address], [facility] [phone] [facility] [address] [place] [address], [facility] [phone] from Last 3 Months or Most Recently Relevant to Health Maintenance Insurance [employer] Advance Directives Documents on File Type Date Recorded Patient Records Management Manager Expl anation ACP-Advance Directive 07/13/2024 10:35 PM ACP-Advance Directive 07/13/2024 10:35 PM * Full Code (Latest Code Status on File) Date Activated Date Inactivated Comments 07/06/2024 7:55 PM 07/11/2024 2:07 PM Healthcare Agents on File Name Relationship Healthcare Agent Relationshi p Communication Babatunde Alfredo Spouse Primary Decision Maker Care Teams Manager Coding Relationship Specialty Start Date End Date Robert Cruz DO [address] [place] [address] PCP - General Internal Medicine 07/06/24
--- NOTE | 2025-02-06 10:15 | PM.CN ---
Consult Note: HPI Data of Consult Patient: known to practice within the last 3 years Consult date: 02/06/25 Requesting Physician: Selina Presley NP Primary Care Provider: Robert Cruz DO Consult Narrative Reason for consult: low back and right leg pain Narrative: Janny Fuentes a pleasant 64 year old female presents for evaluation and management of chronic low back and right leg pain. Previously underwent L4,[address] Wilcox, did have a fall 2 months ago with significant increase in pain and decline in functional ability. Pt currently following with Dr Wilcox who is proceeding with L3-4 decompression and fusion upcoming March 05. Pt has failed medrol dose pack, tramadol, lodine. utilizing lyrica 100mg BID with mild relief without side effects. utilizing walker for ambulation. Pain today 8/10 in low back and right hip cc:: CC: Selina Presley NP Review of Systems ROS Musculoskeletal Reports: back pain, extremity pain and joint pain PFSH PFS Medical History Shoulder pain, right ?M25.511 - Pain in right shoulder (ICD-10) Osteoarthritis ?M19.90 - Unspecified osteoarthritis, unspecified site (ICD-10) Low back pain ?M54.50 - Low back pain, unspecified (ICD-10) Neck pain ?M54.2 - Cervicalgia (ICD-10) TIA (transient ischemic attack) ?G45.9 - Transient cerebral ischemic attack, unspecified (ICD-10) Hearing deficit ?H91.90 - Unspecified hearing loss, unspecified ear (ICD-10) Acid reflux ?K21.9 - Gastro-esophageal reflux disease without esophagitis (ICD-10) Obesity ?E66.9 - Obesity, unspecified (ICD-10) Diabetes ?E11.9 - Type 2 diabetes mellitus without complications (ICD-10) Hypothyroid ?E03.9 - Hypothyroidism, unspecified (ICD-10) Sleep apnea ?G47.30 - Sleep apnea, unspecified (ICD-10) Irregular heart beat ?I49.9 - Cardiac arrhythmia, unspecified (ICD-10) High cholesterol ?E78.00 - Pure hypercholesterolemia, unspecified (ICD-10) Hypertension ?I10 - Essential (primary) hypertension (ICD-10) Surgical History H/O cosmetic surgery ?Z98.890 - Other specified postprocedural states (ICD-10) H/O thyroidectomy ?E89.0 - Postprocedural hypothyroidism (ICD-10) H/O lumbosacral spine surgery ?Z98.890 - Other specified postprocedural states (ICD-10) H/O operation on finger ?Z98.890 - Other specified postprocedural states (ICD-10) H/O carpal tunnel repair ?Z98.890 - Other specified postprocedural states (ICD-10) H/O arthroscopic knee surgery ?Z98.890 - Other specified postprocedural states (ICD-10) H/O: hysterectomy ?Z90.710 - Acquired absence of both cervix and uterus (ICD-10) Hx of appendectomy ?Z90.49 - Acquired absence of other specified parts of digestive tract (ICD-10) H/O exploratory laparotomy ?Z98.890 - Other specified postprocedural states (ICD-10) H/O: ?Z98.891 - History of uterine scar from previous surgery (ICD-10) H/O shoulder surgery ?Z98.890 - Other specified postprocedural states (ICD-10) H/O cervical spine surgery ?Z98.890 - Other specified postprocedural states (ICD-10) S/P cataract extraction ?Z98.49 - Cataract extraction status, unspecified eye (ICD-10) Social History Little interest or pleasure in doing things: not at all Feeling down, depressed, or hopeless: not at all Meds Home Medications and Allergies Home Medications ?Medication ?Instructions ?Recorded ?Confirmed ?Type atenolol 50 mg tablet 50 mg PO DAILY 09/28/22 01/28/25 History citalopram 40 mg tablet (Celexa) 40 mg PO DAILY 09/28/22 01/28/25 History glimepiride 4 mg tablet 4 mg PO DAILY 09/28/22 01/28/25 History levothyroxine 125 mcg tablet 125 mcg PO DAILY 09/28/22 01/28/25 History (Synthroid) metformin 500 mg tablet 500 mg PO BID 09/28/22 01/28/25 History pravastatin 40 mg tablet 40 mg PO DAILY 09/28/22 01/28/25 History clonazepam 1 mg tablet (Klonopin) 1.5 mg PO DAILY 05/18/23 01/28/25 History rizatriptan 10 mg tablet (Maxalt) 10 mg PO Q2H PRN migraine headache 05/18/23 01/28/25 History etodolac 500 mg tablet 500 mg PO BID 05/09/24 01/28/25 History pregabalin 100 mg capsule (Lyrica) 100 mg PO BID 01/16/25 01/28/25 History olmesartan 20 mg tablet mg 01/28/25 History Allergies Allergy/AdvReac Type Severity Reaction Status Date / Time calcium (From DHEA) Allergy Severe respirator Verified 01/28/25 10:09 arrest calcium carbonate (From DHEA) Allergy Severe respirator Verified 01/28/25 10:09 arrest prasterone (DHEA) (From DHEA) Allergy Severe respirator Verified 01/28/25 10:09 arrest iodine Allergy Intermediate Unknown Verified 01/28/25 10:09 latex Allergy Intermediate Unknown Verified 01/28/25 10:09 meperidine (From Demerol) Allergy Intermediate Unknown Verified 01/28/25 10:09 sumatriptan (From Imitrex) Allergy Intermediate Unknown Verified 01/28/25 10:09 Exam Constitutional Documenting provider has reviewed patient's vital signs: yes Common normals: no apparent distress, oriented x3, healthy appearing, alert and well nourished General appearance: cooperative HENPA Common normals: normocephalic, hearing grossly normal bilaterally and moist oral mucous membranes Head and scalp: normocephalic Eye Common normals: PERRL Pupil: PERRL Neck & C-Spine Common normals: full ROM General: normal visual inspection Chest Common normals: inspection of chest normal Respiratory Common normals: normal respiratory effort, no retractions and no use of accessory muscles Back & Pelvis Lumbar spine/lower back: ROM limited and pain with ROM Sacroiliac joints: SI joint(s) abnormal Other: strength 3/5 in RLE and 5/5 in LLE right sij positive sherine(patricks), gaenslens, thigh thrust, compression test Neuro Common normals: oriented x3 Sensorium/orientation: alert Gait (neuro): antalgic and assistive device used walker Psych Common normals: mental status grossly normal, thought process normal, cooperative, affect normal, speech normal and activity/motor behavior normal Speech: normal speech Thought process: normal thought process Results Additional Findings Additional findings: If on a controlled substance or opioids, I have checked an [place] report on this patient and there are no aberrancies noted in the prescribing history.??If on a controlled substance or opioid a drug screen was completed and reviewed within the last year, and if there has not been a drug screen completed we ordered one today to monitor higher risk, state monitored pain medication use. As part of providing excellent, safe, comprehensive care, the following was completed at our patient's visit: 1. A medication reconciliation and review to ensure accurate knowledge of current/active medications, including asking our patients to inform us about any [id number] medications or herbal remedies/nutritional supplements/alternative remedies. 2. A review to specifically ensure our patients have had annual screening for screening for depression, screening for tobacco use, and screening for unhealthy alcohol use. For concerning screenings had a discussion with the patient, provided patient education, and recommended follow-up with primary care provider when appropriate. If patient noted with a risk of falling, they received education on strength, gait, and balance training to prevent future risk of falling. Portions of this note may have been carried over from the previous visit and updated as appropriate. Please note this office utilizes paper charting in addition to the electronic medical record. A list of current medications, vitals, and PMH is available there as the clinical staff outside of myself do not have access to [facility] charting during the clinic day operations. As part of providing quality comprehensive care the current medications, vitals, and PMH were reviewed in the paper chart. Assessment and Plan Assessment and Plan (1) Sacroiliitis: (2) Lumbar radiculopathy, right: Assessment and Plan: 01/28/25 right L3-4 L4-5 TFESI with no improvement per pt (3) Failed back syndrome: Plan The patient has had over 3 months of moderate to severe low back and right hip pain with functional impairment and inadequate response to conservative care including NSAIDS (unless there are contraindication such as concurrent blood thinners), multiple oral or topical pain medications, and home exercise program/physical therapy.? Patient has completed >6 weeks of guided home exercise program and/or formal physical therapy program without relief of their symptoms.? I have reviewed the imaging of the lumbar spine and no red flags were identified.? The imaging reveals radiographic findings consistent with lumbar radiculopathy? The Oswestry Disability Index was completed, and the patient scored a 66%.? once approved by Dr Wilcox can proceed with right SIJ under fluoroscopy for lumbar radiculopathy continue pregabalin 100mg BID, risks vs benefits reviewed start tizanidine 4mg TID PRN pain/spasms continue NNCP due to chronic benzo use continue to utilize wheeled walker f/u 2 weeks after injection
== END 2025-02-06 09:50 | disposition home or self-care (01) ==
LOC: PM 09:49
PROVIDERS: PCP Internal Medicine; Visit Provider Nurse Practitioner
DX: M54.16 Radiculopathy, lumbar region (principal); M46.1 Sacroiliitis, not elsewhere classified; M96.1 Postlaminectomy syndrome, not elsewhere classified
CPT/HCPCS: 36415; 80048; 83036; 85025; 85610; 85730; 87081; G0463

== ENCOUNTER 2025-02-06 11:38 | Outpatient (OUT) | payer OTHER, SELFPAY ==
--- OUTSIDE RECORDS SUMMARY | 2025-02-06 11:52 | XMS_ITS | CCD ---
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 Role Phone JENNA GARSIA Admitting Unavailable [...] Primary Care Provider Hamilton Robert Attending Provider Anderson HENLEY, Miriam Stephenson Attending Unavailable Anderson HENLEY, Miriam Stephenson Attending Unavailable Allergies Allergy Classification Reported Allergen(s) Allergy Type Date of Onset Reaction(s) Facility (3 sources) Contrast media; Translations: [CONTRAST DYE] Propensity to adverse reactions to drug (disorder) 09-30-19 11 [facility] Repository (2 sources) HYDROmorphone; Translations: [HYDROMORPHONE (BULK)] Drug Allergy 08-17-19 17 [facility] (20 sources) Latex; Translations: [LATEX] Propensity to adverse reactions to drug (disorder) 09-30-19 11 Hives [facility] Repository (2 sources) Meperidine; Translations: [MEPERIDINE (PF)] Drug Allergy 09-30-19 11 [facility] (2 sources) Povidone-Iodine; Translations: [POVIDONE-IODINE] Drug Allergy 10-21-19 17 [facility] (2 sources) SUMAtriptan; Translations: [SUMATRIPTAN SUCCINATE] Drug Allergy 09-30-19 11 [facility] (2 sources) INFLUENZA VACCINE TRI-SP 09-10; Translations: [INFLUENZA VACCINE TRI-SP 09-10] Propensity to adverse reactions to drug (disorder) 09-30-19 11 [facility] (3 sources) DHE; Translations: [DHE] Propensity to adverse reactions to drug (disorder) 10-24-19 13 [facility] (20 sources) HYDROmorphone Drug Allergy 12-20-19 24 Unknown, Unknown Reaction [facility] (20 sources) Iodine; Translations: [iodine] Drug Allergy 10-24-19 13 Unknown, Unknown Reaction [facility] Rep[facility] (20 sources) Meperidine Drug Allergy 12-20-19 24 Unknown, Unknown Reaction [facility] (20 sources) SUMAtriptan Drug Allergy 12-20-19 24 Hives [facility] (20 sources) Fluad Drug allergy 12-20-19 24 Unknown, Unknown Reaction [facility] (19 sources) DHEA Drug allergy 07-07-[address] [facility] [employer] Other (2 sources) HYDROmorphone; Translations: [Dilaudid] Drug Allergy 10-24-19 13 [facility] (1 source) Meperidine Drug Allergy 10-24-19 13 [facility] (2 sources) Plasmin; Translations: [Imitrex] Drug Allergy 10-24-19 13 [facility] (12 sources) influenza A virus (H1N1) antigen / influenza A virus (H3N2) antigen / influenza B virus antigen Drug Allergy 11-21-19 14 Comment:FLU VACCINE [facility] [employer] Other (12 sources) Contraindication to Flu Injection Propensity to adverse reactions 03-07-20 14 Comment:advers e rxn/side effects [facility] [employer] Other (3 sources) patient allergy list reviewed by nurse or physicia Propensity to adverse reactions 12-22-19 14 Comment:Done [facility] [employer] Other (9 sources) Calcium Drug Allergy 12-20-19 24 Unknown Reaction [facility] (9 sources) Calcium Carbonate Drug Allergy 12-20-19 24 Unknown Reaction [facility] (9 sources) prasterone (DHEA) Allergy to substance 12-20-19 24 Unknown Reaction [facility] (9 sources) Fluad Quadrivalent Allergy to substance 04-29-19 Comment:FLU VACCINE [facility] Comment on above: Onset Date: 11/21/19 14 (1 source) Meperidine; Translations: [Demerol HCl] Drug Allergy [facility] Repository (1 source) flu vaccines; Translations: [flu vaccines] Propensity to adverse reactions (disorder) [facility] Repository (2 sources) Iodine Strong Propensity to adverse reactions to drug 07-07-19 [facility]) Meperidine Drug Allergy 07-07-19 25 Other (See Comments) [facility] Medications Current Medications Medication [...] for injection by adding 1 mL of check processing clerk-supplied sterile diluent or sterile water for injection [...] Start: 12-20-2023 take 1 capsule by mo [facility] once daily Magnesium Aspart,Citrate,Oxide [...] disintegrating tablet 4 mg polyethylene glycol 3350 11630 mg powder for oral solution (1 source) [...] every two hours as needed for headache Maxalt-CLOTH BALER 10 MG 1 tablet Orally PRN headache, [...] Start: 07-08-2024 take 10 mg rectal ro [place] once daily as needed for constipation 10 [...] 20 mL/lumen, Post-op sodium [place]ircon[place] cyclos[place]ica [place] 42988 mg powder for oral suspension (1 source) [...] Isreal Garcia DO 12/01/24 Final result Normal [facility] Basophils Auto (Bld) [#/Vol] Ordered By: Robert Villasenor on 10-13-2024 Basophils (Bld) [#/Vol] 0.0 10 3/uL 0.0-0.1 [facility] Basophils/100 WBC Auto (Bld) Ordered By: Robetr Villasenor on 10-13-2024 Basophils/100 WBC (Bld) 0.6 % 0.2-2.0 [facility] Cholesterol in LDL Calc [Mas s/Vol]Ordered By: Robert Villasenor on 10-13-2024 Cholesterol in LDL [Mass/Vol] 77.0 mg/dL [facility] Comment on above: <100 mg/dl [id number] 0-129 mg/dl NEAR OR ABOVE [id number] mg/dl BORDERLINE [id number] mg/dl HIGH>190 mg/dl VERY HIGH Cholesterol in VLDL Calc [Ma ss/Vol]Ordered By: Robert Villasenor on 10-13-2024 Cholesterol in VLDL [Mass/Vol] 30.8 mg/dL [facility] Eosinophils/100 WBC Auto (Bl d)Ordered By: Robert Villasenor on 10-13-2024 Eosinophils/100 WBC (Bld) 4.5 % 0.9-7.0 [facility] Erythrocyte distribution wid th Auto (RBC) [Ratio]Ordered By: Robert Villasenor on 10-13-2024 Erythrocyte distribution width (RBC) [Ratio] 12.6 % 11.0-15.0 [facility] Estimated glomerular filtrat ion rate (GFR) non- AmericanOrdered By: Robert Villasenor on 10-13-2024 GFR/1.73 sq M.predicted among non-blacks MDRD (S/P/Bld) [Vol rate/Area] 50 mL/min/{1.73_m2} Low >=60 mL/min/1.73 m 2 [facility] Globulin Calc (S) [Mass/Vol] Ordered By: Robert Villasenor on 10-13-2024 Globulin (S) [Mass/Vol] 3.6 g/dL [facility] Hematocrit Auto (Bld) [Volum e fraction]Ordered By: Robert Villasenor on 10-13-2024 Hematocrit (Bld) [Volume fraction] 37.7 % 36.0-48.0 [facility] Hemoglobin [Mass/volume] in BloodOrdered By: Robert Villasenor on 10-13-2024 Hemoglobin (Bld) [Mass/Vol] 12.0 g/dL 12.0-16.0 [facility] Laboratory - Chemistry and C hemistry - challengeOrdered By: Robert Villasenor on 10-13-2024 Albumin [Mass/Vol] 3.6 g/dL 3.4-5.0 [facility] ALP [Catalytic activity/Vol] 91 U/L 46-116 [facility] ALT [Catalytic activity/Vol] 29 U/L 14-59 [facility] AST [Catalytic activity/Vol] 23 U/L 15-37 [facility] Bilirubin [Mass/Vol] 0.6 mg/dL 0.2-1.0 [facility] Calcium [Mass/Vol] 8.9 mg/dL 8.5-10.1 [facility] Chloride [Moles/Vol] 103 mmol/L 98-107 [facility] Cholesterol [Mass/Vol] 161 mg/dL <=200 [facility] Cholesterol in HDL [Mass/Vol] 54 mg/dL 40-60 [facility] Comment on above: > or =60 mg/dl - LOW CARDIOVASCULAR RISK<40 mg/dl - HIGH CARDIOVASCULAR RISK CO2 [Moles/Vol] 26.8 mmol/L 21.0-32.0 [facility] Creatinine [Mass/Vol] 1.09 mg/dL High 0.55-1.02 [facility] GFR/1.73 sq M.predicted MDRD (S/P/Bld) [Vol rate/Area] mL/min/{1.73_m2} >=60 mL/min/1.73 m 2 [facility] Glucose [Mass/Vol] 75 mg/dL 74-106 [facility] Potassium [Moles/Vol] 4.3 mmol/L 3.5-5.1 [facility] Protein [Mass/Vol] 7.2 g/dL 6.4-8.2 [facility] Sodium [Moles/Vol] 141 mmol/L 136-145 [facility] Triglyceride [Mass/Vol] 154 mg/dL High <=150 [facility] Urea nitrogen [Mass/Vol] 28.0 mg/dL High 7.0-18.0 [facility] Urea nitrogen/Creatinine [Mass ratio] 25.7 mg/mg [facility] Laboratory - Hematology and Cell countsOrdered By: Robert Villasenor on 10-13-2024 Immature granulocytes/100 WBC (Bld) 0.3 % 0.0-0.5 [facility] Leukocytes [#/volume] correc chip for nucleated erythrocytes in Blood by Automated counOrdered By: Robert Villasenor on 10-13-2024 WBC corrected for nucl RBC Auto (Bld) [#/Vol] 6.4 10 3/uL 4.0-11.0 [facility] Lymphocytes Auto (Bld) [#/Vo l]Ordered By: Robert Villasenor on 10-13-2024 Lymphocytes (Bld) [#/Vol] 2.7 10 3/uL 1.2-3.8 [facility] Lymphocytes/100 WBC Auto (Bl d)Ordered By: Robert Villasenor on 10-13-2024 Lymphocytes/100 WBC (Bld) 42.6 % 20.5-60.0 [facility] MCH Auto (RBC) [Entitic mass ]Ordered By: Robert Villasenor on 10-13-2024 MCH (RBC) [Entitic mass] 26.1 pg Low 26.7-34.0 [facility] MCHC Auto (RBC) [Mass/Vol]Or dered By: Robert Villasenor on 10-13-2024 MCHC (RBC) [Mass/Vol] 31.8 g/dL 29.9-35.2 [facility] MCV Auto (RBC) [Entitic vol] Ordered By: Robert Villasenor on 10-13-2024 MCV (RBC) [Entitic vol] 82.0 fL 81.0-99.0 [facility] Microalbumin [Mass/volume] i n UrineOrdered By: Robert Villasenor on 10-13-2024 Albumin DL <= 20 mg/L (U) [Mass/Vol] mg/dL <=30.0 [facility] Monocytes Auto (Bld) [#/Vol] Ordered By: Robert Villasenor on 10-13-2024 Monocytes (Bld) [#/Vol] 0.5 10 3/uL 0.3-0.8 [facility] Monocytes/100 WBC Auto (Bld) Ordered By: Robert Villasenor on 10-13-2024 Monocytes/100 WBC (Bld) 8.5 % 1.7-12.0 [facility] Neutrophils Auto (Bld) [#/Vo l]Ordered By: Robert Villasenor on 10-13-2024 Neutrophils (Bld) [#/Vol] 2.8 10 3/uL 1.4-6.5 [facility] Neutrophils/100 WBC Auto (Bl d)Ordered By: Robert Villasenor on 10-13-2024 Neutrophils/100 WBC (Bld) 43.5 % 43.0-75.0 [facility] No Panel InformationOrdered By: Robert Villasenor on 10-13-2024 Eosinophils # (Auto) 0.3 10 3/uL 0.0-0.7 [facility] Immature Granulocyte # (Auto) 0.02 10 3/uL 0.00-0.03 [facility] Urine Random Creatinine 72.31 mg/dL 20.00-300.0 0 [facility] Platelet mean volume Auto (B ld) [Entitic vol]Ordered By: Robert Villasenor on 10-13-2024 Platelet mean volume (Bld) [Entitic vol] 9.8 fL 9.5-13.5 [facility] Platelets Auto (Bld) [#/Vol] Ordered By: Robert Villasenor on 10-13-2024 Platelets (Bld) [#/Vol] 227 10 3/uL 150-450 [facility] RBC Auto (Bld) [#/Vol]Ordere d By: Robert Villasenor on 10-13-2024 RBC (Bld) [#/Vol] 4.60 10 6/uL 4.20-5.40 [facility] Serum or plasma albumin/glob ulin mass ratioOrdered By: Robert Villasenor on 10-13-2024 Albumin/Globulin [Mass ratio] 1.0 {ratio} [facility] Serum or plasma anion gap de terminationOrdered By: Robert Villasenor on 10-13-2024 Anion gap [Moles/Vol] 15.5 mmol/L [facility] Serum or plasma total choles terol/high density lipoprotein (HDL) cholesterol mass ratOrdered By: Robert Villasenor on 10-13-2024 Cholesterol.total/Chol esterol in HDL [Mass ratio] 3.0 {ratio} [facility] Comment on above: 3.3 - 4.4 LOW RISK4. 4 - 7.1 AVERAGE RISK7.1 - 11.0 MODERATE RISK>11.0 HIGH RISK Basophils Auto (Bld) [#/Vol] on 09-21-2024 Basophils (Bld) [#/Vol] 0.0 10 3/uL 0.0-0.1 [facility] Basophils/100 WBC Auto (Bld) on 09-21-2024 Basophils/100 WBC (Bld) 0.6 % 0.2-2.0 [facility] Cholesterol in LDL Calc [Mas s/Vol]on 09-21-2024 Cholesterol in LDL [Mass/Vol] 57.0 mg/dL [facility] Comment on above: <100 mg/dl [id number] 0-129 mg/dl NEAR OR ABOVE [id number] mg/dl BORDERLINE [id number] mg/dl HIGH>190 mg/dl VERY HIGH Cholesterol in VLDL Calc [Ma ss/Vol]on 09-21-2024 Cholesterol in VLDL [Mass/Vol] 37.6 mg/dL [facility] Eosinophils/100 WBC Auto (Bl d)on 09-21-2024 Eosinophils/100 WBC (Bld) 14.7 % High 0.9-7.0 [facility] Erythrocyte distribution wid th Auto (RBC) [Ratio]on 09-21-2024 Erythrocyte distribution width (RBC) [Ratio] 11.9 % 11.0-15.0 [facility] Estimated glomerular filtrat ion rate (GFR) non- Americanon 09-21-2024 GFR/1.73 sq M.predicted among non-blacks MDRD (S/P/Bld) [Vol rate/Area] 54 mL/min/{1.73_m2} Low >=60 mL/min/1.73 m 2 [facility] Globulin Calc (S) [Mass/Vol] on 09-21-2024 Globulin (S) [Mass/Vol] 3.7 g/dL [facility] Hematocrit Auto (Bld) [Volum e fraction]on 09-21-2024 Hematocrit (Bld) [Volume fraction] 35.4 % Low 36.0-48.0 [facility] Hemoglobin [Mass/volume] in Bloodon 09-21-2024 Hemoglobin (Bld) [Mass/Vol] 11.0 g/dL Low 12.0-16.0 [facility] Laboratory - Chemistry and C hemistry - challengeon 09-21-2024 Albumin [Mass/Vol] 3.2 g/dL Low 3.4-5.0 [facility] ALP [Catalytic activity/Vol] 89 U/L 46-116 [facility] ALT [Catalytic activity/Vol] 29 U/L 14-59 [facility] AST [Catalytic activity/Vol] 22 U/L 15-37 [facility] Bilirubin [Mass/Vol] 0.4 mg/dL 0.2-1.0 [facility] Calcium [Mass/Vol] 9.2 mg/dL 8.5-10.1 [facility] Chloride [Moles/Vol] 105 mmol/L 98-107 [facility] Cholesterol [Mass/Vol] 136 mg/dL <=200 [facility] Cholesterol in HDL [Mass/Vol] 42 mg/dL 40-60 [facility] Comment on above: > or =60 mg/dl - LOW CARDIOVASCULAR RISK<40 mg/dl - HIGH CARDIOVASCULAR RISK CO2 [Moles/Vol] 28.3 mmol/L 21.0-32.0 [facility] Creatinine [Mass/Vol] 1.02 mg/dL 0.55-1.02 [facility] GFR/1.73 sq M.predicted MDRD (S/P/Bld) [Vol rate/Area] mL/min/{1.73_m2} >=60 mL/min/1.73 m 2 [facility] Glucose [Mass/Vol] 119 mg/dL High 74-106 [facility] Potassium [Moles/Vol] 5.3 mmol/L High 3.5-5.1 [facility] Protein [Mass/Vol] 6.9 g/dL 6.4-8.2 [facility] Sodium [Moles/Vol] 143 mmol/L 136-145 [facility] Triglyceride [Mass/Vol] 188 mg/dL High <=150 [facility] TSH Qn 0.633 m[IU]/L 0.358-3.740 [facility] Urea nitrogen [Mass/Vol] 31.0 mg/dL High 7.0-18.0 [facility] Urea nitrogen/Creatinine [Mass ratio] 30.4 mg/mg [facility] Laboratory - Hematology and Cell countson 09-21-2024 Immature granulocytes/100 WBC (Bld) 0.2 % 0.0-0.5 [facility] Leukocytes [#/volume] correc chip for nucleated erythrocytes in Blood by Automated counon 09-21-2024 WBC corrected for nucl RBC Auto (Bld) [#/Vol] 5.3 10 3/uL 4.0-11.0 [facility] Lymphocytes Auto (Bld) [#/Vo l]on 09-21-2024 Lymphocytes (Bld) [#/Vol] 2.1 10 3/uL 1.2-3.8 [facility] Lymphocytes/100 WBC Auto (Bl d)on 09-21-2024 Lymphocytes/100 WBC (Bld) 39.2 % 20.5-60.0 [facility] MCH Auto (RBC) [Entitic mass ]on 09-21-2024 MCH (RBC) [Entitic mass] 26.1 pg Low 26.7-34.0 [facility] MCHC Auto (RBC) [Mass/Vol]on 09-21-2024 MCHC (RBC) [Mass/Vol] 31.1 g/dL 29.9-35.2 [facility] MCV Auto (RBC) [Entitic vol] on 09-21-2024 MCV (RBC) [Entitic vol] 83.9 fL 81.0-99.0 [facility] Monocytes Auto (Bld) [#/Vol] on 09-21-2024 Monocytes (Bld) [#/Vol] 0.4 10 3/uL 0.3-0.8 [facility] Monocytes/100 WBC Auto (Bld) on 09-21-2024 Monocytes/100 WBC (Bld) 8.4 % 1.7-12.0 [facility] Neutrophils Auto (Bld) [#/Vo l]on 09-21-2024 Neutrophils (Bld) [#/Vol] 1.9 10 3/uL 1.4-6.5 [facility] Neutrophils/100 WBC Auto (Bl d)on 09-21-2024 Neutrophils/100 WBC (Bld) 36.9 % Low 43.0-75.0 [facility] No Panel Informationon 09-21 Eosinophils # (Auto) 0.8 10 3/uL High 0.0-0.7 [facility] Immature Granulocyte # (Auto) 0.01 10 3/uL 0.00-0.03 [facility] Platelet mean volume Auto (B ld) [Entitic vol]on 09-21-2024 Platelet mean volume (Bld) [Entitic vol] 9.9 fL 9.5-13.5 [facility] Platelets Auto (Bld) [#/Vol] on 09-21-2024 Platelets (Bld) [#/Vol] 218 10 3/uL 150-450 [facility] RBC Auto (Bld) [#/Vol]on RBC (Bld) [#/Vol] 4.22 10 6/uL 4.20-5.40 [facility] Serum or plasma albumin/glob ulin mass ratioon 09-21-2024 Albumin/Globulin [Mass ratio] 0.9 {ratio} [facility] Serum or plasma anion gap de terminationon 09-21-2024 Anion gap [Moles/Vol] 15.0 [facility] or plasma total choles terol/high density lipoprotein (HDL) cholesterol mass desiree 09-21-2024 Cholesterol.total/Chol esterol in HDL [Mass ratio] 3.2 {ratio} [facility] Comment on above: 3.3 - 4.4 LOW RISK4. 4 - 7.1 AVERAGE RISK7.1 - 11.0 MODERATE RISK>11.0 HIGH RISK Glucose mean value [Mass/vol ume] in Blood Estimated from glycated hemoglobinon 09-14-2024 Average glucose Estimated from glycated hemoglobin (Bld) [Mass/Vol] 146 mg/dL [facility] Hemoglobin A1c percentageon 09-14-2024 HbA1c (Bld) [Mass fraction] 6.7 % High 4.5-6.2 [facility] Comment on above: ADA RECOMMENDED LIMI T 4.0 - 6.0ADA THERAPEUTIC TARGET < 7.0ACTION SUGGESTED> 7.0 Microalbumin [Mass/volume] i n Urineon 09-14-2024 Albumin DL <= 20 mg/L (U) [Mass/Vol] 3.2 mg/dL <=30.0 [facility] No Panel Informationon 09-14 Urine Random Creatinine 260.08 mg/dL 20.00-300.0 0 [facility] Urine microalbumin/creatinin e mass ratioon 09-14-2024 Albumin/Creatinine DL <= 20 mg/L (U) [Mass ratio] 12.3 mg/g 0.0-29.9 [facility] Comment on above: NO MICROALBUMINURIA 0-29 MG/GCLINICAL MICROALBUMINURIA 30-300 MG/GMACROALBUMINURIA >300 MG/G Basophils Auto (Bld) [#/Vol] on 07-18-2024 Basophils (Bld) [#/Vol] Automated basophil count 0.0-0.1 [facility] Basophils/100 WBC Auto (Bld) on 07-18-2024 Basophils/100 WBC (Bld) Automated basophil % 0.2-2.0 [facility] Eosinophils/100 WBC Auto (Bl d)on 07-18-2024 Eosinophils/100 WBC (Bld) Automated eosinophil % 0.9-7.0 [facility] Erythrocyte distribution wid th Auto (RBC) [Ratio]on 07-18-2024 Erythrocyte distribution width (RBC) [Ratio] Erythrocyte distribution width [Ratio] by Automated count 11.0-15.0 [facility] Hematocrit Auto (Bld) [Volum e fraction]on 07-18-2024 Hematocrit (Bld) [Volume fraction] Hematocrit [Volume Fraction] of Blood by Automated count Low 36.0-48.0 [facility] Hemoglobin [Mass/volume] in Bloodon 07-18-2024 Hemoglobin (Bld) [Mass/Vol] Hemoglobin [Mass/volume] in Blood Low 12.0-16.0 [facility] - Hematology and Cell countson 07-18-2024 Immature granulocytes/100 WBC (Bld) 0.6 % High 0.0-0.5 [facility] Leukocytes [#/volume] correc chip for nucleated erythrocytes in Blood by Automated counon 07-18-2024 WBC corrected for nucl RBC Auto (Bld) [#/Vol] Leukocytes [#/volume] corrected for nucleated erythrocytes in Blood by Automated coun 4.0-11.0 [facility] Lymphocytes Auto (Bld) [#/Vo l]on 07-18-2024 Lymphocytes (Bld) [#/Vol] Lymphocytes [#/volume] in Blood by Automated count 1.2-3.8 [facility] Lymphocytes/100 WBC Auto (Bl d)on 07-18-2024 Lymphocytes/100 WBC (Bld) Lymphocytes/100 leukocytes in Blood by Automated count 20.5-60.0 [facility] MCH Auto (RBC) [Entitic mass ]on 07-18-2024 MCH (RBC) [Entitic mass] MCH [Entitic mass] by Automated count 26.7-34.0 [facility] MCHC Auto (RBC) [Mass/Vol]on 07-18-2024 MCHC (RBC) [Mass/Vol] MCHC [Mass/volume] by Automated count 29.9-35.2 [facility] MCV Auto (RBC) [Entitic vol] on 07-18-2024 MCV (RBC) [Entitic vol] MCV [Entitic volume] by Automated count 81.0-99.0 [facility] Monocytes Auto (Bld) [#/Vol] on 07-18-2024 Monocytes (Bld) [#/Vol] Automated blood monocyte count 0.3-0.8 [facility] Monocytes/100 WBC Auto (Bld) on 07-18-2024 Monocytes/100 WBC (Bld) Automated monocyte % 1.7-12.0 [facility] Neutrophils Auto (Bld) [#/Vo l]on 07-18-2024 Neutrophils (Bld) [#/Vol] Neutrophils [#/volume] in Blood by Automated count 1.4-6.5 [facility] Neutrophils/100 WBC Auto (Bl d)on 07-18-2024 Neutrophils/100 WBC (Bld) Automated neutrophil % 43.0-75.0 [facility] No Panel Informationon 07-18 Eosinophils # (Auto) 0.3 10 3/uL 0.0-0.7 [facility] Immature Granulocyte # (Auto) 0.03 10 3/uL 0.00-0.03 [facility] Platelet mean volume Auto (B ld) [Entitic vol]on 07-18-2024 Platelet mean volume (Bld) [Entitic vol] Platelet mean volume [Entitic volume] in Blood by Automated count Low 9.5-13.5 [facility] Platelets Auto (Bld) [#/Vol] on 07-18-2024 Platelets (Bld) [#/Vol] Platelets [#/volume] in Blood by Automated count 150-450 [facility] RBC Auto (Bld) [#/Vol]on RBC (Bld) [#/Vol] Erythrocytes [#/volume] in Blood by Automated count Low 4.20-5.40 [facility] Basophils Auto (Bld) [#/Vol] on 07-12-2024 Basophils (Bld) [#/Vol] Automated basophil count 0.0-0.1 [facility] Basophils/100 WBC Auto (Bld) on 07-12-2024 Basophils/100 WBC (Bld) Automated basophil % 0.2-2.0 [facility] Eosinophils/100 WBC Auto (Bl d)on 07-12-2024 Eosinophils/100 WBC (Bld) Automated eosinophil % 0.9-7.0 [facility] Erythrocyte distribution wid th Auto (RBC) [Ratio]on 07-12-2024 Erythrocyte distribution width (RBC) [Ratio] Erythrocyte distribution width [Ratio] by Automated count 11.0-15.0 [facility] Estimated glomerular filtrat ion rate (GFR) non- Americanon 07-12-2024 GFR/1.73 sq M.predicted among non-blacks MDRD (S/P/Bld) [Vol rate/Area] Estimated glomerular filtration rate (GFR) non- Low >=60 mL/min/1.73 m 2 [facility] Hematocrit Auto (Bld) [Volum e fraction]on 07-12-2024 Hematocrit (Bld) [Volume fraction] Hematocrit [Volume Fraction] of Blood by Automated count Low 36.0-48.0 [facility] Hemoglobin [Mass/volume] in Bloodon 07-12-2024 Hemoglobin (Bld) [Mass/Vol] Hemoglobin [Mass/volume] in Blood Low 12.0-16.0 [facility] - Chemistry and C hemistry - challengeon 07-12-2024 Calcium [Mass/Vol] 8.6 mg/dL 8.5-10.1 [facility] Chloride [Moles/Vol] 102 mmol/L 98-107 [facility] CO2 [Moles/Vol] 24.7 mmol/L 21.0-32.0 [facility] Creatinine [Mass/Vol] 1.94 mg/dL High 0.55-1.02 [facility] GFR/1.73 sq M.predicted MDRD (S/P/Bld) [Vol rate/Area] 31 mL/min/{1.73_m2} Low >=60 mL/min/1.73 m 2 [facility] Glucose [Mass/Vol] 203 mg/dL High 74-106 [facility] Potassium [Moles/Vol] 4.6 mmol/L 3.5-5.1 [facility] Sodium [Moles/Vol] 137 mmol/L 136-145 [facility] Urea nitrogen [Mass/Vol] 24.0 mg/dL High 7.0-18.0 [facility] Urea nitrogen/Creatinine [Mass ratio] 12.4 mg/mg [facility] - Hematology and Cell countson 07-12-2024 Immature granulocytes/100 WBC (Bld) 1.8 % High 0.0-0.5 [facility] Leukocytes [#/volume] correc chip for nucleated erythrocytes in Blood by Automated counon 07-12-2024 WBC corrected for nucl RBC Auto (Bld) [#/Vol] Leukocytes [#/volume] corrected for nucleated erythrocytes in Blood by Automated coun 4.0-11.0 [facility] Lymphocytes Auto (Bld) [#/Vo l]on 07-12-2024 Lymphocytes (Bld) [#/Vol] Lymphocytes [#/volume] in Blood by Automated count 1.2-3.8 [facility] Lymphocytes/100 WBC Auto (Bl d)on 07-12-2024 Lymphocytes/100 WBC (Bld) Lymphocytes/100 leukocytes in Blood by Automated count 20.5-60.0 [facility] MCH Auto (RBC) [Entitic mass ]on 07-12-2024 MCH (RBC) [Entitic mass] MCH [Entitic mass] by Automated count 26.7-34.0 [facility] MCHC Auto (RBC) [Mass/Vol]on 07-12-2024 MCHC (RBC) [Mass/Vol] MCHC [Mass/volume] by Automated count 29.9-35.2 [facility] MCV Auto (RBC) [Entitic vol] on 07-12-2024 MCV (RBC) [Entitic vol] MCV [Entitic volume] by Automated count 81.0-99.0 [facility] Monocytes Auto (Bld) [#/Vol] on 07-12-2024 Monocytes (Bld) [#/Vol] Automated blood monocyte count 0.3-0.8 [facility] Monocytes/100 WBC Auto (Bld) on 07-12-2024 Monocytes/100 WBC (Bld) Automated monocyte % 1.7-12.0 [facility] Neutrophils Auto (Bld) [#/Vo l]on 07-12-2024 Neutrophils (Bld) [#/Vol] Neutrophils [#/volume] in Blood by Automated count 1.4-6.5 [facility] Neutrophils/100 WBC Auto (Bl d)on 07-12-2024 Neutrophils/100 WBC (Bld) Automated neutrophil % 43.0-75.0 [facility] No Panel Informationon 07-12 Eosinophils # (Auto) 0.2 10 3/uL 0.0-0.7 [facility] Immature Granulocyte # (Auto) 0.13 10 3/uL High 0.00-0.03 [facility] Platelet mean volume Auto (B ld) [Entitic vol]on 07-12-2024 Platelet mean volume (Bld) [Entitic vol] Platelet mean volume [Entitic volume] in Blood by Automated count 9.5-13.5 [facility] Platelets Auto (Bld) [#/Vol] on 07-12-2024 Platelets (Bld) [#/Vol] Platelets [#/volume] in Blood by Automated count 150-450 [facility] RBC Auto (Bld) [#/Vol]on RBC (Bld) [#/Vol] Erythrocytes [#/volume] in Blood by Automated count Low 4.20-5.40 [facility] Serum or plasma anion gap de terminationon 07-12-2024 Anion gap [Moles/Vol] Serum or plasma an ion gap determination [facility] ANION GAPon 07-11-2024 Anion gap [Moles/Vol] 10.0 mmol/L Normal 8.0-16.0 [facility] Comment on above: Result Comment: ANIO N GAP = Sodium -(Chloride + CO2) Performed By: #### P OCGL #### [facility] [address] [place] [address] Anion Gapon 07-11-2024 Anion gap [Moles/Vol] 10 mmol/L 8.0 - 16.0 meq/L [facility] Comment on above: ANION GAP = Sodium - (Chloride + CO2) Performed at [facility] [address] [place] [address] BASIC METABOL PANELon 2024 Calcium [Mass/Vol] 8.9 mg/dL Normal 8.8-10.2 [facility] Comment on above: Performed By: #### P OCGL #### [facility] [address] [place] [address] CO2 [Moles/Vol] 22 mmol/L Normal 22-29 [facility] Comment on above: Performed By: #### P OCGL #### [facility] [address] [place] [address] Creatinine [Mass/Vol] 1.0 mg/dL High 0.5-0.9 [facility] Comment on above: Performed By: #### P OCGL #### [facility] [address] [place] [address] Glucose [Mass/Vol] 166 mg/dL High 74-109 [facility] Comment on above: Performed By: #### P OCGL #### [facility] [address] [place] [address] Urea nitrogen [Mass/Vol] 16 mg/dL Normal 8-23 [facility] Comment on above: Performed By: #### P OCGL #### [facility] [address] [address] Chloride [Moles/Vol] 103 mmol/L Normal 98-111 [facility] Comment on above: Performed By: #### P OCGL #### [facility] [address] [address] Potassium [Moles/Vol] 4.7 mmol/L Normal 3.5-5.2 [facility] Comment on above: Result Comment: Low level specimen hemolysis is present as indicated by the interference index on the Yamilet analyzer. ??The reported K+ level may be falsely increased. If clinically warranted, recollection of the specimen is suggested. Performed By: #### P OCGL #### [facility] [address] [place] [address] Sodium [Moles/Vol] 135 mmol/L Normal 135-145 [facility] Comment on above: Performed By: #### P OCGL #### [facility] [email or web address] [address] [address] Basic metabolic 2000 panelon 07-11-2024 Calcium [Mass/Vol] 8.9 mg/dL 8.8 - 10. 2 mg/dL [facility] Comment on above: Performed at [facility] [address] [place] [address] Chloride [Moles/Vol] 103 mmol/L 98 - 11 1 meq/L [facility] CO2 [Moles/Vol] 22 mmol/L 22 - 29 meq/L [facility] Creatinine [Mass/Vol] 1.0 mg/dL High 0.5 - 0.9 mg/dL [facility] com Glucose [Mass/Vol] 166 mg/dL High 74 - 109 mg/dL [facility] com Interpretation and review of laboratory results Abnormal [facility] com Potassium [Moles/Vol] 4.7 mmol/L 3.5 - 5.2 meq/L [facility] com Comment on above: Low level specimen h emolysis is present as indicated by the interference index on the Yamilet analyzer. The reported K+ level may be falsely increased. If clinically warranted, recollection of the specimen is suggested. Sodium [Moles/Vol] 135 mmol/L 135 - 145 meq/L [facility] com Urea nitrogen [Mass/Vol] 16 mg/dL 8 - 23 mg/dL [facility] com GFR, ESTIMATEDon 07-11-2024 GFR/1.73 sq M.predicted MDRD (S/P/Bld) [Vol rate/Area] 62 mL/min/{1.73_m2} Normal >60 [facility] com Comment on above: Pediatric calculator link https://www.kidney.org/professionals/kdoqi/gfr_calculatorped [...] that affects renal tubular secretion. Performed at [address] [address] Result Comment: Pedi atric calculator link https://www.kidney.org/professionals/kdoqi/gfr_calculatorped [...] secretion. Performed By: #### P OCGL #### [facility] [address] [place] [address] GLUCOSE POCon 07-11-2024 Glucose [Mass/Vol] 177 mg/dL High 70-108 [facility] Comment on above: Performed at [facility] [address] [place] [address] Performed By: #### P OCGL #### [facility] [address] [place] [address] Glucose Auto test strip (Bld ) [Mass/Vol]on 07-11-2024 Interpretation and review of laboratory results Abnormal [facility] HGB,HCTon 07-11-2024 Hematocrit (Bld) [Volume fraction] 33.4 % Low 37.0-47.0 [facility] Comment on above: Performed at [facility] [address] [place] [address] Performed By: #### P OCGL #### [place] [address] Hemoglobin (Bld) [Mass/Vol] 10.8 g/dL Low 12.0-16.0 [facility] Comment on above: Performed By: #### P OCGL #### [place] [address] Hemoglobin and Hematocrit pa bhavna (Bld)on 07-11-2024 Interpretation and review of laboratory results Abnormal [facility] No Panel Informationon 07-11 [facility] ANION GAPon 07-10-2024 Anion gap [Moles/Vol] 8.0 mmol/L Normal 8.0-16.0 [facility] Comment on above: Result Comment: ANIO N GAP = Sodium -(Chloride + CO2) Performed By: #### P OCGL #### [facility] [place] [address] Anion Gapon 07-10-2024 Anion gap [Moles/Vol] 8 mmol/L 8.0 - 16.0 meq/L [facility] Comment on above: ANION GAP = Sodium - (Chloride + CO2) Performed at [facility] [address] [place] [address] BASIC METABOL PANELon 2024 Calcium [Mass/Vol] 8.8 mg/dL Normal 8.8-10.2 [facility] Comment on above: Performed By: #### P OCGL #### [email or web address] [address] [place] [address] CO2 [Moles/Vol] 26 mmol/L Normal 22-29 [facility] Comment on above: Performed By: #### P OCGL #### [facility] [address] [place] [address] Creatinine [Mass/Vol] 1.1 mg/dL High 0.5-0.9 [facility] Comment on above: Performed By: #### P OCGL #### [email or web address] [address] [place] [address] Glucose [Mass/Vol] 198 mg/dL High 74-109 [facility] Comment on above: Performed By: #### P OCGL #### [facility] [address] [place] [address] Urea nitrogen [Mass/Vol] 24 mg/dL High 8-23 [facility] Comment on above: Performed By: #### P OCGL #### [facility] [address] [place] [address] Chloride [Moles/Vol] 101 mmol/L Normal 98-111 [facility] Comment on above: Performed By: #### P OCGL #### [facility] [address] [place] [address] Potassium [Moles/Vol] 4.6 mmol/L Normal 3.5-5.2 [facility] Comment on above: Performed By: #### P OCGL #### [facility] [address] [place] [address] Sodium [Moles/Vol] 135 mmol/L Normal 135-145 [facility] Comment on above: Performed By: #### P OCGL #### [facility] [address] [place] [address] Basic metabolic 2000 panelon 07-10-2024 Calcium [Mass/Vol] 8.8 mg/dL 8.8 - 10. 2 mg/dL [facility] Comment on above: Performed at [facility] [address] [place] [address] Chloride [Moles/Vol] 101 mmol/L 98 - 11 1 meq/L [facility] CO2 [Moles/Vol] 26 mmol/L 22 - 29 meq/L [facility] Creatinine [Mass/Vol] 1.1 mg/dL High 0.5 - 0.9 mg/dL [facility] Glucose [Mass/Vol] 198 mg/dL High 74 - 109 mg/dL [facility] Potassium [Moles/Vol] 4.6 mmol/L 3.5 - 5.2 meq/L [facility] Sodium [Moles/Vol] 135 mmol/L 135 - 145 meq/L [facility] Urea nitrogen [Mass/Vol] 24 mg/dL High 8 - 23 mg/dL [facility] GFR, ESTIMATEDon 07-10-2024 GFR/1.73 sq M.predicted MDRD (S/P/Bld) [Vol rate/Area] 56 mL/min/{1.73_m2} Abnormal >60 [facility] Comment on above: Pediatric calculator link https://www.kidney.org/professionals/kdoqi/gfr_calculatorped [...] that affects renal tubular secretion. Performed at [facility] [address] [place] [address] Result Comment: Pedi atric calculator link https://www.kidney.org/professionals/kdoqi/gfr_calculatorped [...] secretion. Performed By: #### P OCGL #### [address] [address] GLUCOSE POCon 07-10-2024 Glucose [Mass/Vol] 267 mg/dL High 70-108 [facility] Comment on above: Performed at [facility] [address] [place] [address] Performed By: #### P OCGL #### [address] [address] Glucose [Mass/Vol] 154 mg/dL High 70-108 [facility] Comment on above: Performed at [facility] [address] [place] [address] Performed By: #### P OCGL #### [address] [address] Glucose [Mass/Vol] 302 mg/dL High 70-108 [facility] Comment on above: Performed at [facility] [address] [place] [address] Performed By: #### P OCGL #### [address] [address] Glucose [Mass/Vol] 205 mg/dL High 70-108 [facility] Comment on above: Performed at [facility] [address] [place] [address] Performed By: #### P OCGL #### [address] [address] Glucose Auto test strip (Bld ) [Mass/Vol]on 07-10-2024 Interpretation and review of laboratory results Abnormal [facility] Interpretation and review of laboratory results Abnormal [facility] Interpretation and review of laboratory results Abnormal [facility] Interpretation and review of laboratory results Abnormal [facility] HGB,HCTon 07-10-2024 Hematocrit (Bld) [Volume fraction] 32.2 % Low 37.0-47.0 [facility] Comment on above: Performed at [facility] [address] [place] [address] Performed By: #### P OCGL #### [place] [id number] Hemoglobin (Bld) [Mass/Vol] 10.0 g/dL Low 12.0-16.0 [facility] Comment on above: Performed By: #### P OCGL #### [facility] [address] [place] [address] Hemoglobin and Hematocrit pa bhavna (Bld)on 07-10-2024 Hemoglobin (Bld) [Mass/Vol] 10 g/dL Low [facility] Interpretation and review of laboratory results Abnormal [facility] No Panel Informationon 07-10 Interpretation and review of laboratory results Abnormal [facility] ANION GAPon 07-09-2024 Anion gap [Moles/Vol] 10.0 mmol/L Normal 8.0-16.0 [facility] Comment on above: Result Comment: ANIO N GAP = Sodium -(Chloride + CO2) Performed By: #### P OCGL #### [address] [address] Anion Gapon 07-09-2024 Anion gap [Moles/Vol] 10 mmol/L 8.0 - 16.0 meq/L [facility] Comment on above: ANION GAP = Sodium - (Chloride + CO2) Performed at [facility] [address] [place] [address] BASIC METABOL PANELon 2024 Calcium [Mass/Vol] 8.3 mg/dL Low 8.8-10.2 [facility] Comment on above: Performed By: #### P OCGL #### [facility] [address] [address] CO2 [Moles/Vol] 23 mmol/L Normal 22-29 [facility] Comment on above: Performed By: #### P OCGL #### [facility] [address] [place] [address] Creatinine [Mass/Vol] 1.1 mg/dL High 0.5-0.9 [facility] Comment on above: Performed By: #### P OCGL #### [facility] [address] [place] [address] Glucose [Mass/Vol] 197 mg/dL High 74-109 [facility] Comment on above: Performed By: #### P OCGL #### [facility] [address] [place] [address] Urea nitrogen [Mass/Vol] 21 mg/dL Normal 8-23 [facility] Comment on above: Performed By: #### P OCGL #### [facility] [address] [place] [address] Chloride [Moles/Vol] 103 mmol/L Normal 98-111 [facility] Comment on above: Performed By: #### P OCGL #### [facility] [address] [place] [address] Potassium [Moles/Vol] 5.8 mmol/L High 3.5-5.2 [facility] Comment on above: Performed By: #### P OCGL #### [facility] [address] [place] [address] Sodium [Moles/Vol] 136 mmol/L Normal 135-145 [facility] Comment on above: Performed By: #### P OCGL #### [facility] [address] [place] [address] Basic metabolic 2000 panelon 07-09-2024 Calcium [Mass/Vol] 8.3 mg/dL Low 8.8 - 10. 2 mg/dL [facility] Comment on above: Performed at [facility] [address] [place] [address] Chloride [Moles/Vol] 103 mmol/L 98 - 11 1 meq/L [facility] CO2 [Moles/Vol] 23 mmol/L 22 - 29 meq/L [facility] Creatinine [Mass/Vol] 1.1 mg/dL High 0.5 - 0.9 mg/dL [facility] Glucose [Mass/Vol] 197 mg/dL High 74 - 109 mg/dL [facility] Potassium [Moles/Vol] 5.8 mmol/L High 3.5 - 5.2 meq/L [facility] Sodium [Moles/Vol] 136 mmol/L 135 - 145 meq/L [facility] Urea nitrogen [Mass/Vol] 21 mg/dL 8 - 23 mg/dL [facility] GFR, ESTIMATEDon 07-09-2024 GFR/1.73 sq M.predicted MDRD (S/P/Bld) [Vol rate/Area] 56 mL/min/{1.73_m2} Abnormal >60 [facility] Comment on above: Pediatric calculator link [...] that affects renal tubular secretion. Performed at [facility] [email or web address] [address] Result Comment: Pedi atric calculator link https://www.kidney.org/professionals/kdoqi/gfr_calculatorped [...] secretion. Performed By: #### P OCGL #### [facility] [address] [place] [address] GLUCOSE POCon 07-09-2024 Glucose [Mass/Vol] 211 mg/dL High 70-108 [facility] Comment on above: Performed at [facility] [address] [place] [address] Performed By: #### P OCGL #### [employer] [facility] [address] [place] [address] Glucose [Mass/Vol] 212 mg/dL High 70-108 [facility] Comment on above: Performed at [facility] [address] [place] [address] Performed By: #### P OCGL #### [facility] [address] [place] [address] Glucose [Mass/Vol] 169 mg/dL High 70-108 [facility] Comment on above: Performed at [facility] [address] [place] [address] Performed By: #### P OCGL #### [facility] [place] [address] Glucose [Mass/Vol] 229 mg/dL High 70-108 [facility] Comment on above: Performed at [facility] [address] [place] [address] Performed By: #### P OCGL #### [place] [address] Glucose [Mass/Vol] 203 mg/dL High 70-108 [facility] Comment on above: Performed at [facility] [address] [place] [address] Performed By: #### P OCGL #### [place] [address] HGB,HCTon 07-09-2024 Hematocrit (Bld) [Volume fraction] 36.7 % Low 37.0-47.0 [facility] Comment on above: Performed at [facility] [address] [place] [address] Performed By: #### P OCGL #### [place] [address] Hemoglobin (Bld) [Mass/Vol] 11.9 g/dL Low 12.0-16.0 [facility] Comment on above: Performed By: #### P OCGL #### [place] [address] No Panel Informationon 07-09 Interpretation and review of laboratory results Abnormal [facility] POTASSIUMon 07-09-2024 Potassium [Moles/Vol] 4.7 mmol/L Normal 3.5-5.2 [facility] Comment on above: Performed By: #### K P #### [place] [address] Potassiumon 07-09-2024 Potassium [Moles/Vol] 4.7 mmol/L 3.5 - 5.2 meq/L [facility] Comment on above: Performed at [facility] [address] [place] [address] GLUCOSE POCon 07-08-2024 Glucose [Mass/Vol] 266 mg/dL High 70-108 [facility] Comment on above: Performed at [facility] [address] [place] [address] Performed By: #### P OCGL #### [facility] [address] [place] [address] Glucose [Mass/Vol] 120 mg/dL High 70-108 [facility] Comment on above: Performed at [facility] [address] [place] [address] Performed By: #### P OCGL #### [facility] [address] [place] [address] Glucose [Mass/Vol] 105 mg/dL Normal 70-108 [facility] Comment on above: Performed at [facility] [address] [place] [address] Performed By: #### P OCGL #### [facility] [address] [address] Glucose [Mass/Vol] 136 mg/dL High 70-108 [facility] Comment on above: Performed at [facility] [address] [place] [address] Performed By: #### P OCGL #### [facility] [address] [address] Glucose Auto test strip (Bld ) [Mass/Vol]on 07-08-2024 Interpretation and review of laboratory results Abnormal [facility] Interpretation and review of laboratory results Abnormal [facility] Interpretation and review of laboratory results Abnormal [facility] XR LUMBAR SPINE 1 VWon 07-08 [...] Boo Headley MD 07/08/24 Final result Normal [facility] XR Lumbar spine Single viewo n 07-08-2024 1. Evidence of posterior fusion at L4-L5. Please refer to operative report for further details. This report has been created using voice recognition software. It may contain minor errors which are inherent in voice recognition technology. Electronically signed by Dr. Jerrod Betts [facility] Sivakumar Betts MD - 07/08/2024 PROCEDURE: [...] Electronically signed by Dr. Jerrod Betts [facility] Radiology Study observation (narrative) [facility] Intraoperative appearance of the lumbar spine. This report has been created using voice recognition software. It may contain minor errors which are inherent in voice recognition technology. Electronically signed by Dr. Boo Headley [facility] MOBILE LATERAL LUMBA R SPINE: CLINICAL INFORMATION: surgery. L3-L5 decompression. L4-L5- fusion COMPARISON: No prior study. TECHNIQUE: A single lateral mobile view of the lumbar spine was obtained For localization purposes. FINDINGS: 2 spinal needles are present posteriorly directed at the L4 and L5 levels. [facility] Boo Headley MD - 07/08/2024 MOBILE [...] Electronically signed by Dr. Boo Headley [facility] Radiology Study observation (narrative) [facility] XR Lumbar spine Single viewO rdered By: Sivakumar Betts on 07-08-2024 [facility] Work Phone: XR Lumbar spine Single viewO rdered By: Boo Headley on 07-08-2024 [facility] Work Phone: ANION GAPon 07-07-2024 Anion gap [Moles/Vol] 14.0 mmol/L Normal 8.0-16.0 [facility] Comment on above: Result Comment: ANIO N GAP = Sodium -(Chloride + CO2) Performed By: #### B MP, EGFR1, CBCND, ANION #### [facility] [address] [place] [address] Anion Gapon 07-07-2024 Anion gap [Moles/Vol] 14 mmol/L 8.0 - 16.0 meq/L [facility] Comment on above: ANION GAP = Sodium - (Chloride + CO2) Performed at [facility] [address] [place] [address] BASIC METABOL PANELon 2024 CO2 [Moles/Vol] 21 mmol/L Low 22-29 [facility] Comment on above: Performed By: #### B MP, EGFR1, CBCND, ANION #### [facility] [address] [place] [address] Creatinine [Mass/Vol] 1.0 mg/dL High 0.5-0.9 [facility] Comment on above: Performed By: #### B MP, EGFR1, CBCND, ANION #### [facility] [address] [place] [address] Glucose [Mass/Vol] 172 mg/dL High 74-109 [facility] Comment on above: Performed By: #### B MP, EGFR1, CBCND, ANION #### [facility] [address] [place] [address] Urea nitrogen [Mass/Vol] 33 mg/dL High 8-23 [facility] Comment on above: Performed By: #### B MP, EGFR1, CBCND, ANION #### [facility] [address] [place] [address] Calcium [Mass/Vol] 9.2 mg/dL Normal 8.8-10.2 [facility] Comment on above: Performed By: #### B MP, EGFR1, CBCND, ANION #### [facility] [address] [place] [address] Chloride [Moles/Vol] 103 mmol/L Normal 98-111 [facility] Comment on above: Performed By: #### B MP, EGFR1, CBCND, ANION #### [facility] [address] [place] [address] Potassium [Moles/Vol] 4.4 mmol/L Normal 3.5-5.2 [facility] Comment on above: Result Comment: Low level specimen hemolysis is present as indicated by the interference index on the [employer] analyzer. ??The reported K+ level may be falsely increased. If clinically warranted, recollection of the specimen is suggested. Performed By: #### B MP, EGFR1, CBCND, ANION #### [facility] [address] [place] [address] Sodium [Moles/Vol] 138 mmol/L Normal 135-145 [facility] Comment on above: Performed By: #### B MP, EGFR1, CBCND, ANION #### [employer] [address] [place] [address] Basic metabolic 2000 panelon 07-07-2024 Calcium [Mass/Vol] 9.2 mg/dL 8.8 - 10. 2 mg/dL [facility] Comment on above: Performed at [facility] [address] [place] [address] Chloride [Moles/Vol] 103 mmol/L 98 - 11 1 meq/L [facility] CO2 [Moles/Vol] 21 mmol/L Low 22 - 29 meq/L [facility] Creatinine [Mass/Vol] 1.0 mg/dL High 0.5 - 0.9 mg/dL [facility] Glucose [Mass/Vol] 172 mg/dL High 74 - 109 mg/dL [facility] Interpretation and review of laboratory results Abnormal [facility] Potassium [Moles/Vol] 4.4 mmol/L 3.5 - 5.2 meq/L [facility] Comment on above: Low level specimen h emolysis is present as indicated by the interference index on the Yamilet analyzer. The reported K+ level may be falsely increased. If clinically warranted, recollection of the specimen is suggested. Sodium [Moles/Vol] 138 mmol/L 135 - 145 meq/L [facility] Urea nitrogen [Mass/Vol] 33 mg/dL High 8 - 23 mg/dL [facility] CBCon 07-07-2024 Erythrocyte distribution width (RBC) [Entitic vol] 40.3 fL 35.0 - 45.0 fL [facility] Platelets (Bld) [#/Vol] 236 10*3/uL [facility] RBC (Bld) [#/Vol] 4.73 10*6/uL [facility] WBC (Bld) [#/Vol] 8.6 10*3/uL [facility] CBC NO DIFFERENTIALon 2024 Erythrocyte distribution width (RBC) [Ratio] 12.6 % Normal 11.5-14.5 [facility] Comment on above: Performed By: #### B MP, EGFR1, CBCND, ANION #### [facility] [address] [place] [address] Hematocrit (Bld) [Volume fraction] 41.6 % Normal 37.0-47.0 [facility] Comment on above: Performed By: #### B MP, EGFR1, CBCND, ANION #### [facility] [address] [place] [address] Hemoglobin (Bld) [Mass/Vol] 13.5 g/dL Normal 12.0-16.0 [facility] Comment on above: Performed By: #### B MP, EGFR1, CBCND, ANION #### [facility] [address] [place] [address] MCH (RBC) [Entitic mass] 28.5 pg Normal 26.0-33.0 [facility] Comment on above: Performed By: #### B MP, EGFR1, CBCND, ANION #### [place] [address] MCHC (RBC) [Mass/Vol] 32.5 g/dL Normal 32.2-35.5 [facility] Comment on above: Performed By: #### B MP, EGFR1, CBCND, ANION #### [place] [address] MCV (RBC) [Entitic vol] 87.9 fL Normal 81.0-99.0 [facility] Comment on above: Performed By: #### B MP, EGFR1, CBCND, ANION #### [place] [address] PLATELET 236 thou/mm3 Normal 130-400 [facility] Comment on above: Performed By: #### B MP, EGFR1, CBCND, ANION #### [place] [address] Platelet mean volume (Bld) [Entitic vol] 9.6 fL Normal 9.4-12.4 [facility] Comment on above: Performed at [facility] [address] [place] [address] Performed By: #### B MP, EGFR1, CBCND, ANION #### [place] [address] RBC 4.73 mill/mm3 Normal 4.20-5.40 [facility] Comment on above: Performed By: #### B MP, EGFR1, CBCND, ANION #### [place] [address] RDW-SD 40.3 fL Normal 35.0-45.0 [facility] Comment on above: Performed By: #### B MP, EGFR1, CBCND, ANION #### [place] [address] WBC 8.6 thou/mm3 Normal 4.8-10.8 [facility] Comment on above: Performed By: #### B MP, EGFR1, CBCND, ANION #### [facility] [employer] [place] [address] GFR, ESTIMATEDon 07-07-2024 GFR/1.73 sq M.predicted MDRD (S/P/Bld) [Vol rate/Area] 62 mL/min/{1.73_m2} Normal >60 [facility] Comment on above: Pediatric calculator link [...] that affects renal tubular secretion. Performed at [facility] [email or web address] [address] Result Comment: Pedi atric calculator link https://www.kidney.org/professionals/kdoqi/gfr_calculatorped [...] #### B MP, EGFR1, CBCND, ANION #### [facility] [address] [place] [address] GLUCOSE POCon 07-07-2024 Glucose [Mass/Vol] 271 mg/dL High 70-108 [facility] Comment on above: Performed at [facility] [address] [place] [address] Performed By: #### P OCGL #### [facility] [address] [place] [address] Glucose [Mass/Vol] 188 mg/dL High 70-108 [facility] Comment on above: Performed at [facility] [address] [place] [address] Performed By: #### P OCGL #### [facility] [address] [place] [address] Glucose [Mass/Vol] 174 mg/dL High 70-108 [facility] Comment on above: Performed at [facility] [address] [place] [address] Performed By: #### P OCGL #### [facility] [address] [place] [address] Glucose [Mass/Vol] 76 mg/dL Normal 70-108 [facility] [employer] Comment on above: Performed at [facility] [address] [place] [address] Performed By: #### P OCGL #### [facility] [address] [place] [address] Glomerular Filtration Rate, Estimatedon 07-07-2024 [facility] Glucose Auto test strip (Bld ) [Mass/Vol]on 07-07-2024 Interpretation and review of laboratory results Abnormal [facility]66[facility] com [facility] Interpretation and review of laboratory results Abnormal [facility]66[facility] com [facility] Interpretation and review of laboratory results Abnormal [facility]66. com [facility]66. com [facility]66. com No Panel Informationon 07-07 [employer] XR CHEST (2 VW)on 07-07-2024 XR CHEST [...] Kj Epps MD 07/07/24 Final result Normal [facility] XR Chest 2 Viewson Impression: No acute cardiopulmonary disease. This document has been electronically signed by: Kj Epps MD on 07/07/2024 02:22 AM [facility] RIS CONSOLIDATED Chest X-ray: 2 views . Indication: Pulmonary congestion. Comparison: None Findings: The lungs are well aerated. No focal consolidation, or pleural effusion. The cardiac silhouette is normal in size. Bony thorax is grossly intact. Bilateral shoulder arthroplasty. External metallic density versus surgical hardware projects on the lower cervical spine. [facility] Kj Epps MD - 07/07/2024 [...] Epps MD on 07/07/2024 02:22 AM [facility] Radiology Study observation (narrative) [facility] XR Chest 2 ViewsOrdered By: Kj Epps on 07-07-2024 [facility] ANION GAPon 07-06-2024 Anion gap [Moles/Vol] 14.0 mmol/L Normal 8.0-16.0 [facility] Comment on above: Result Comment: ANIO N GAP = Sodium -(Chloride + CO2) Performed By: #### P OCGL #### [facility] [address] [place] [address] APTTon 07-06-2024 aPTT Coag (Bld) [Time] 29.5 s Normal 22.0-38.0 [facility] Comment on above: Result Comment: Ther apeutic Heparin Reference Range= 60-95 seconds (corresponds to 0.3 to 0.7 u/mL Anti-Xa factor activity) Performed By: #### P OCGL #### [facility] [address] [place] [address] Anion Gapon 07-06-2024 Anion gap [Moles/Vol] 14 mmol/L 8.0 - 16.0 meq/L [facility] Comment on above: ANION GAP = Sodium - (Chloride + CO2) Performed at [facility] [address] [place] [address] CBC WITH DIFFERENTIALon 06-23 ABS BASOPHILS 0.0 thou/mm3 Normal 0.0-0.1 [facility] Comment on above: Performed By: #### P OCGL #### [facility] [address] [place] [address] ABS EOSINOPHILS 0.0 thou/mm3 Normal 0.0-0.4 [facility] Comment on above: Performed By: #### P OCGL #### [address] [address] ABS IMMATURE GRANS (IG) 0.05 thou/mm3 Normal 0.00-0.07 [facility] Comment on above: Performed By: #### P OCGL #### [address] [address] ABS LYMPHOCYTES 2.8 thou/mm3 Normal 1.0-4.8 [facility] Comment on above: Performed By: #### P OCGL #### [address] [address] ABS MONOCYTES 0.8 thou/mm3 Normal 0.4-1.3 [facility] Comment on above: Performed By: #### P OCGL #### [address] [address] ABS NEUTROPHILS 7.9 thou/mm3 High 1.8-7.7 [facility] Comment on above: Performed By: #### P OCGL #### [address] [address] Basophils/100 WBC (Bld) 0.2 % Normal [facility] Comment on above: Performed By: #### P OCGL #### [address] [address] Eosinophils/100 WBC (Bld) 0.3 % Normal [facility] Comment on above: Performed By: #### P OCGL #### [address] [address] Erythrocyte distribution width (RBC) [Ratio] 12.5 % Normal 11.5-14.5 [facility] Comment on above: Performed By: #### P OCGL #### [address] [address] Hematocrit (Bld) [Volume fraction] 42.6 % Normal 37.0-47.0 [facility] Comment on above: Performed By: #### P OCGL #### [address] [address] Hemoglobin (Bld) [Mass/Vol] 13.8 g/dL Normal 12.0-16.0 [facility] Comment on above: Performed By: #### P OCGL #### [address] [address] IMMATURE GRANS (IG) 0.4 % Normal [facility] Comment on above: Performed By: #### P OCGL #### [address] [address] Lymphocytes/100 WBC (Bld) 24.0 % Normal [facility] Comment on above: Performed By: #### P OCGL #### [address] [address] MCH (RBC) [Entitic mass] 28.6 pg Normal 26.0-33.0 [facility] Comment on above: Performed By: #### P OCGL #### [address] [address] MCHC (RBC) [Mass/Vol] 32.4 g/dL Normal 32.2-35.5 [facility] Comment on above: Performed By: #### P OCGL #### [address] [address] MCV (RBC) [Entitic vol] 88.2 fL Normal 81.0-99.0 [facility] Comment on above: Performed By: #### P OCGL #### [address] [address] Monocytes/100 WBC (Bld) 6.8 % Normal [facility] Comment on above: Performed By: #### P OCGL #### [address] [address] Neutrophils/100 WBC (Bld) 68.3 % Normal [facility] Comment on above: Performed By: #### P OCGL #### [address] [address] NRBC 0 /100 wbc Normal [facility] Comment on above: Performed By: #### P OCGL #### [address] [address] PLATELET 274 thou/mm3 Normal 130-400 [facility] Comment on above: Performed By: #### P OCGL #### [facility] [address] [place] [address] Platelet mean volume (Bld) [Entitic vol] 9.7 fL Normal 9.4-12.4 [facility] Comment on above: Performed By: #### P OCGL #### [email or web address] [address] [place] [address] RBC 4.83 mill/mm3 Normal 4.20-5.40 [facility] Comment on above: Performed By: #### P OCGL #### [facility] [address] [place] [address] RDW-SD 39.9 fL Normal 35.0-45.0 [facility] Comment on above: Performed By: #### P OCGL #### [facility] [email or web address] [facility] [address] [place] [address] WBC 11.6 thou/mm3 High 4.8-10.8 [facility] Comment on above: Performed By: #### P OCGL #### [facility] [address] [place] [address] CBC with Auto Differentialon 07-06-2024 Basophils (Bld) [...] [facility] Comment on above: Performed at [facility] [address] [place] [address] Platelets (Bld) [#/Vol] 274 10*3/uL [facility] RBC (Bld) [#/Vol] 4.83 10*6/uL [facility] WBC (Bld) [#/Vol] 11.6 10*3/uL High [facility] COMP. METABOLIC PANELon 06-23 Albumin [Mass/Vol] 4.3 g/dL Normal 3.4-4.9 [facility] Comment on above: Performed By: #### P OCGL #### [facility] [address] [address] ALP [Catalytic activity/Vol] 65 U/L Normal 35-104 [facility] Comment on above: Performed By: #### P OCGL #### [address] [address] ALT [Catalytic activity/Vol] 24 U/L Normal 10-35 [facility] Comment on above: Performed By: #### P OCGL #### [address] [address] AST [Catalytic activity/Vol] 23 U/L Normal 10-35 [facility] Comment on above: Performed By: #### P OCGL #### [address] [address] Bilirubin [Mass/Vol] 0.4 mg/dL Normal 0.3-1.2 [facility] Comment on above: Performed By: #### P OCGL #### [address] [address] Calcium [Mass/Vol] 9.6 mg/dL Normal 8.8-10.2 [facility] Comment on above: Performed By: #### P OCGL #### [address] [address] CO2 [Moles/Vol] 26 mmol/L Normal 22-29 [facility] Comment on above: Performed By: #### P OCGL #### [address] [address] Creatinine [Mass/Vol] 1.3 mg/dL High 0.5-0.9 [facility] Comment on above: Performed By: #### P OCGL #### [facility] [address] [place] [address] Glucose [Mass/Vol] 259 mg/dL High 74-109 [facility] Comment on above: Performed By: #### P OCGL #### [address] [address] Protein [Mass/Vol] 7.2 g/dL Normal 6.4-8.3 [facility] Comment on above: Performed By: #### P OCGL #### [facility] [address] [place] [address] Urea nitrogen [Mass/Vol] 43 mg/dL High 8-23 [facility] Comment on above: Performed By: #### P OCGL #### [facility] [address] [place] [address] Chloride [Moles/Vol] 96 mmol/L Low 98-111 [facility] Comment on above: Performed By: #### P OCGL #### [address] [address] POTASSIUM WITH REFLEX MG 5.0 meq/L Normal 3.5-5.2 [facility] Comment on above: Result Comment: Low level specimen hemolysis is present as indicated by the interference index on the Yamilet analyzer. ??The reported K+ level may be falsely increased. If clinically warranted, recollection of the specimen is suggested. Performed By: #### P OCGL #### [address] [address] Sodium [Moles/Vol] 136 mmol/L Normal 135-145 [facility] Comment on above: Performed By: #### P OCGL #### [address] [address] Comprehensive metabolic 2000 panelon 07-06-2024 Albumin BCG dye [Mass/Vol] 4.3 g/dL 3.4 - 4.9 g/dL [facility] ALP [Catalytic activity/Vol] 65 U/L 35 - 104 U/L [facility] ALT No additional P-5'-P [Catalytic activity/Vol] 24 U/L 10 - 35 U/L [facility] Comment on above: Performed at [facility] [address] [place] [address] AST [Catalytic activity/Vol] 23 U/L 10 - 35 U/L [facility] Bilirubin [Mass/Vol] 0.4 mg/dL 0.3 - 1 .2 mg/dL [facility] Calcium [Mass/Vol] 9.6 mg/dL 8.8 - 10. 2 mg/dL [facility] Chloride [Moles/Vol] 96 mmol/L Low 98 - 11 1 meq/L [facility] [employer] CO2 [Moles/Vol] 26 mmol/L 22 - 29 meq/L [facility] Creatinine [Mass/Vol] 1.3 mg/dL High 0.5 - 0.9 mg/dL [facility] Glucose [Mass/Vol] 259 mg/dL High 74 - 109 mg/dL [facility] [employer] Potassium [Moles/Vol] 5.0 mmol/L 3.5 - 5.2 meq/L [facility] [employer] Comment on above: Low level specimen h emolysis is present as indicated by the interference index on the Yamilet analyzer. The reported K+ level may be falsely increased. If clinically warranted, recollection of the specimen is suggested. Protein [Mass/Vol] 7.2 g/dL 6.4 - 8.3 g/dL [facility]66[facility] com Sodium [Moles/Vol] 136 mmol/L 135 - 145 meq/L [facility] [employer] Urea nitrogen [Mass/Vol] 43 mg/dL High 8 - 23 mg/dL [facility]66. com EKG 12 leadOrdered By: Kp Rodriges on 07-06-2024 Atrial Rate 68 BPM [employer] Work Phone: P Worthington 58 degrees [employer] Work Phone: P-R Interval 146 ms [employer] Work Phone: Q-T Interval 422 ms [employer] Work Phone: QRS Duration 82 ms [employer] Work Phone: QTc Calculation (Bazett) 448 ms [employer] Work Phone: R Worthington 67 degrees [employer] Work Phone: T Worthington 66 degrees [employer] Work Phone: Ventricular Rate 68 BPM Keith mcdermott [employer] Work Phone: [employer] Work Phone: EKG 12 leadon 07-06-2024 Normal sinus rhythm Possible Left atrial enlargement ST & T wave abnormality, consider anterior ischemia Abnormal ECG No previous ECGs available Clinical correlation is indicated Confirmed by Kp Rodriges ([id number]) on 07/06/2024 11:10:52 PM [facility] Kp Vargas MD - 07/06/2024 Normal sinus rhythm Possible Left atrial enlargement ST & T wave abnormality, consider anterior ischemia Abnormal ECG No previous ECGs available Clinical correlation is indicated Confirmed by Kp Rodriges ([id number]) on 07/06/2024 11:10:52 PM [facility] EKG 12-LEADon 07-06-2024 EKG 12-LEAD 68 68 146 82 [phone] Normal sinus rhythm Possible Left atrial enlargement ST & T wave abnormality, consider anterior ischemia Abnormal ECG No previous ECGs available Clinical correlation is indicated Confirmed by Kp Rodriges ([id number]) on 07/06/2024 11:10:52 PM [email or web address] RetrieveTestByDateTime ?MvltoaxRX=[id number]&D ate=06-07-2024&Time=20 %3a11%3a37%3a00&TestTy pe=ECG&Site=3&OutputTy pe=PDF&Ext=PDF Normal [facility] GFR, ESTIMATEDon 07-06-2024 GFR/1.73 sq M.predicted MDRD (S/P/Bld) [Vol rate/Area] 46 mL/min/{1.73_m2} Abnormal >60 [employer] Comment on above: Pediatric calculator link https://www.kidney.org/professionals/kdoqi/gfr_calculatorped [...] that affects renal tubular secretion. Performed at [facility] [place] [address] Result Comment: Soniya robertson calculator link https://www.kidney.org/professionals/kdoqi/gfr_calculatorped [...] secretion. Performed By: #### P OCGL #### [facility] [employer] [address] [place] [address] GLUCOSE POCon 07-06-2024 Glucose [Mass/Vol] 280 mg/dL High 70-108 [facility] Comment on above: Performed at [facility] [place] [address] Performed By: #### P OCGL #### [facility] [employer] [place] [id number] Glucose Auto test strip (Bld ) [Mass/Vol]on 07-06-2024 Interpretation and review of laboratory results Abnormal [facility] [employer] [facility] [employer] INR Coag (PPP) [Relative jackie e]on 07-06-2024 [facility] [employer] No Panel Informationon 07-06 Interpretation and review of laboratory results Abnormal [facility] [employer] PROTHOMBIN TIMEon 07-06-2024 INR Coag (Bld) [Relative time] 1.02 {INR} Normal 0.85-1.13 [facility] Comment on above: Result Comment: ---- -----INDICATION INR Reference Range DVT, PE, AF, AMI, tissue heart valve 2.0 to 3.0 Mechanical prosthetic valves 2.5 to 3.5 Performed By: #### P OCGL #### [facility] [address] [place] [address] Protime-INRon 07-06-2024 INR Coag (PPP) [Relative time] 1.02 {INR} 0.85 - 1.13 [facility] Comment on above: ---------INDICATION- INR Reference Range DVT, PE, AF, AMI, tissue heart valve 2.0 to 3.0 Mechanical prosthetic valves 2.5 to 3.5 Performed at [facility] [address] [place] [address] aPTT Coag (Bld) [Time]on aPTT Coag (PPP) [Time] 29.5 s Jaylan n [facility] Comment on above: Therapeutic Heparin Reference Range= 60-95 seconds (corresponds to 0.3 to 0.7 u/mL Anti-Xa factor activity) Performed at [facility] [address] [place] [address] [facility] Estimated glomerular filtrat ion rate (GFR) non- Americanon 06-27-2024 GFR/1.73 sq M.predicted among non-blacks MDRD (S/P/Bld) [Vol rate/Area] Estimated glomerular filtration rate (GFR) non- Low >=60 mL/min/1.73 m 2 [facility] - Chemistry and C hemistry - challengeon 06-27-2024 Calcium [Mass/Vol] 9.8 mg/dL 8.5-10.1 [facility] Chloride [Moles/Vol] 101 mmol/L 98-107 [facility] CO2 [Moles/Vol] 28.6 mmol/L 21.0-32.0 [facility] Creatinine [Mass/Vol] 1.41 mg/dL High 0.55-1.02 [facility] GFR/1.73 sq M.predicted MDRD (S/P/Bld) [Vol rate/Area] 45 mL/min/{1.73_m2} Low >=60 mL/min/1.73 m 2 [facility] Glucose [Mass/Vol] 66 mg/dL Low 74-106 [facility] Potassium [Moles/Vol] 5.1 mmol/L 3.5-5.1 [facility] Sodium [Moles/Vol] 139 mmol/L 136-145 [facility] Urea nitrogen [Mass/Vol] 29.0 mg/dL High 7.0-18.0 [facility] Urea nitrogen/Creatinine [Mass ratio] 20.6 mg/mg [facility] Bilirubin Ql (U) LARGE Abnormal NEGATIVE [facility] Glucose (U) [Mass/Vol] Negative NEGATIVE [facility] Ketones Ql (U) TRACE mg/dL Abnormal NEGATIVE [facility] pH (U) 5.5 [pH] 5.0-9.0 [facility] Specific gravity (U) [Rel density] 1.025 1.005-1.025 [facility] Urobilinogen Qn (U) 0.2 {Nela'U}/dL 0.2-1.0 [facility] - Specimen inform ationon 06-27-2024 Appearance (U) CLEAR CLEAR [facility] Color (U) YELLOW YELLOW [facility] - Urinalysison Leukocyte esterase Test strip Ql (U) Negative NEGATIVE [facility] Nitrite Ql (U) Negative NEGATIVE [facility] Protein Ql (U) Negative NEG/TRACE [facility] No Panel Informationon 06-27 Urine Microscopic Review NO [facility] Urine Occult Blood Negative NEGATIVE [facility] Serum or plasma anion gap de terminationon 06-27-2024 Anion gap [Moles/Vol] Serum or plasma an ion gap determination [facility] No Panel Informationon 06-01 Miscellaneous Test COMMENT . [facility] Comment on above: Test Ordered: [id number] Aerobic Cult, Extended IncubAerobic Cult, Extended Incub [...] STetracycline STrimethoprim/Sulfa SVancomycin SPerformed at: - [facility] [address] [id number] Director: Noam Haskins PhD, Phone: [phone] Basophils Auto (Bld) [#/Vol] on 05-31-2024 Basophils (Bld) [#/Vol] Automated basophil count 0.0-0.1 [facility] Basophils/100 WBC Auto (Bld) on 05-31-2024 Basophils/100 WBC (Bld) Automated basophil % 0.2-2.0 [facility] Eosinophils/100 WBC Auto (Bl d)on 05-31-2024 Eosinophils/100 WBC (Bld) Automated eosinophil % 0.9-7.0 [facility] Erythrocyte distribution wid th Auto (RBC) [Ratio]on 05-31-2024 Erythrocyte distribution width (RBC) [Ratio] Erythrocyte distribution width [Ratio] by Automated count 11.0-15.0 [facility] Hematocrit Auto (Bld) [Volum e fraction]on 05-31-2024 Hematocrit (Bld) [Volume fraction] Hematocrit [Volume Fraction] of Blood by Automated count 36.0-48.0 [facility] Hemoglobin [Mass/volume] in Bloodon 05-31-2024 Hemoglobin (Bld) [Mass/Vol] Hemoglobin [Mass/volume] in Blood 12.0-16.0 [facility] - Hematology and Cell countson 05-31-2024 ESR (Bld) [Velocity] 7 mm/h <=30 [facility] Immature granulocytes/100 WBC (Bld) 0.2 % 0.0-0.5 [facility] Leukocytes [#/volume] correc chip for nucleated erythrocytes in Blood by Automated counon 05-31-2024 WBC corrected for nucl RBC Auto (Bld) [#/Vol] Leukocytes [#/volume] corrected for nucleated erythrocytes in Blood by Automated coun 4.0-11.0 [facility] Lymphocytes Auto (Bld) [#/Vo l]on 05-31-2024 Lymphocytes (Bld) [#/Vol] Lymphocytes [#/volume] in Blood by Automated count 1.2-3.8 [facility] Lymphocytes/100 WBC Auto (Bl d)on 05-31-2024 Lymphocytes/100 WBC (Bld) Lymphocytes/100 leukocytes in Blood by Automated count 20.5-60.0 [facility] MCH Auto (RBC) [Entitic mass ]on 05-31-2024 MCH (RBC) [Entitic mass] MCH [Entitic mass] by Automated count 26.7-34.0 [facility] MCHC Auto (RBC) [Mass/Vol]on 05-31-2024 MCHC (RBC) [Mass/Vol] MCHC [Mass/volume] by Automated count 29.9-35.2 [facility] MCV Auto (RBC) [Entitic vol] on 05-31-2024 MCV (RBC) [Entitic vol] MCV [Entitic volume] by Automated count 81.0-99.0 [facility] Monocytes Auto (Bld) [#/Vol] on 05-31-2024 Monocytes (Bld) [#/Vol] Automated blood monocyte count 0.3-0.8 [facility] Monocytes/100 WBC Auto (Bld) on 05-31-2024 Monocytes/100 WBC (Bld) Automated monocyte % 1.7-12.0 [facility] Neutrophils Auto (Bld) [#/Vo l]on 05-31-2024 Neutrophils (Bld) [#/Vol] Neutrophils [#/volume] in Blood by Automated count 1.4-6.5 [facility] Neutrophils/100 WBC Auto (Bl d)on 05-31-2024 Neutrophils/100 WBC (Bld) Automated neutrophil % 43.0-75.0 [facility] No Panel Informationon 02-06 -2025 C-Reactive Protein, Quantitative <0.50 mg/dL <=0.50 [facility] Eosinophils # (Auto) 0.1 10 3/uL 0.0-0.7 [facility] Immature Granulocyte # (Auto) 0.01 10 3/uL 0.00-0.03 [facility] Platelet mean volume Auto (B ld) [Entitic vol]on 05-31-2024 Platelet mean volume (Bld) [Entitic vol] Platelet mean volume [Entitic volume] in Blood by Automated count Low 9.5-13.5 [facility] Platelets Auto (Bld) [#/Vol] on 05-31-2024 Platelets (Bld) [#/Vol] Platelets [#/volume] in Blood by Automated count 150-450 [facility] RBC Auto (Bld) [#/Vol]on RBC (Bld) [#/Vol] Erythrocytes [#/volume] in Blood by Automated count 4.20-5.40 [facility] Basophils Auto (Bld) [#/Vol] on 12-27-2023 Basophils (Bld) [#/Vol] 0.1 10 3/uL 0.0-0.1 [facility] Basophils/100 WBC Auto (Bld) on 12-27-2023 Basophils/100 WBC (Bld) 1.0 % 0.2-2.0 [facility] Cholesterol in LDL Calc [Mas s/Vol]on 12-27-2023 Cholesterol in LDL [Mass/Vol] 63.0 mg/dL [facility] Comment on above: <100 mg/dl [id number] 0-129 mg/dl NEAR OR ABOVE [id number] mg/dl BORDERLINE [id number] mg/dl HIGH>190 mg/dl VERY HIGH Cholesterol in VLDL Calc [Ma ss/Vol]on 12-27-2023 Cholesterol in VLDL [Mass/Vol] 45.8 mg/dL [facility] Eosinophils/100 WBC Auto (Bl d)on 12-27-2023 Eosinophils/100 WBC (Bld) 8.3 % High 0.9-7.0 [facility] Erythrocyte distribution wid th Auto (RBC) [Ratio]on 12-27-2023 Erythrocyte distribution width (RBC) [Ratio] 11.9 % 11.0-15.0 [facility] Estimated glomerular filtrat ion rate (GFR) non- Americanon 12-27-2023 GFR/1.73 sq M.predicted among non-blacks MDRD (S/P/Bld) [Vol rate/Area] 47 mL/min/{1.73_m2} Low >=60 [facility] Globulin Calc (S) [Mass/Vol] on 12-27-2023 Globulin (S) [Mass/Vol] 3.2 g/dL [facility] Glucose mean value [Mass/vol ume] in Blood Estimated from glycated hemoglobinon 12-27-2023 Average glucose Estimated from glycated hemoglobin (Bld) [Mass/Vol] 143 mg/dL [facility] Hematocrit Auto (Bld) [Volum e fraction]on 12-27-2023 Hematocrit (Bld) [Volume fraction] 39.7 % 36.0-48.0 [facility] Hemoglobin [Mass/volume] in Bloodon 12-27-2023 Hemoglobin (Bld) [Mass/Vol] 12.9 g/dL 12.0-16.0 [facility] Laboratory - Chemistry and C hemistry - challengeon 12-27-2023 Albumin [Mass/Vol] 3.7 g/dL 3.4-5.0 [facility] ALP [Catalytic activity/Vol] 61 U/L 46-116 [facility] ALT [Catalytic activity/Vol] 36 U/L 14-59 [facility] AST [Catalytic activity/Vol] 24 U/L 15-37 [facility] Bilirubin [Mass/Vol] 0.6 mg/dL 0.2-1.0 [facility] Calcium [Mass/Vol] 9.2 mg/dL 8.5-10.1 [facility] Chloride [Moles/Vol] 101 mmol/L 98-107 [facility] Cholesterol [Mass/Vol] 146 mg/dL <=200 [facility] Cholesterol in HDL [Mass/Vol] 38 mg/dL Low 40-60 [facility] Comment on above: > or =60 mg/dl - LOW CARDIOVASCULAR RISK<40 mg/dl - HIGH CARDIOVASCULAR RISK CO2 [Moles/Vol] 26.8 mmol/L 21.0-32.0 [facility] Creatinine [Mass/Vol] 1.17 mg/dL High 0.55-1.02 [facility] GFR/1.73 sq M.predicted MDRD (S/P/Bld) [Vol rate/Area] 56 mL/min/{1.73_m2} Low >=60 [facility] Glucose [Mass/Vol] 138 mg/dL High 74-106 [facility] Potassium [Moles/Vol] 4.5 mmol/L 3.5-5.1 [facility] Protein [Mass/Vol] 6.9 g/dL 6.4-8.2 [facility] Sodium [Moles/Vol] 138 mmol/L 136-145 [facility] Triglyceride [Mass/Vol] 229 mg/dL High <=150 [facility] TSH Qn 0.834 m[IU]/L 0.358-3.740 [facility] Urea nitrogen [Mass/Vol] 23.0 mg/dL High 7.0-18.0 [facility] Urea nitrogen/Creatinine [Mass ratio] 19.7 mg/mg [facility] Laboratory - Hematology and Cell countson 12-27-2023 HbA1c (Bld) [Mass fraction] 6.6 % High 4.5-6.2 [facility] Comment on above: ADA RECOMMENDED LIMI T 4.0 - 6.0ADA THERAPEUTIC TARGET < 7.0ACTION SUGGESTED> 7.0 Immature granulocytes/100 WBC (Bld) 0.4 % 0.0-0.5 [facility] Leukocytes [#/volume] correc chip for nucleated erythrocytes in Blood by Automated counon 12-27-2023 WBC corrected for nucl RBC Auto (Bld) [#/Vol] 5.2 10 3/uL 4.0-11.0 [facility] Lymphocytes Auto (Bld) [#/Vo l]on 12-27-2023 Lymphocytes (Bld) [#/Vol] 2.2 10 3/uL 1.2-3.8 [facility] Lymphocytes/100 WBC Auto (Bl d)on 12-27-2023 Lymphocytes/100 WBC (Bld) 42.1 % 20.5-60.0 [facility] MCH Auto (RBC) [Entitic mass ]on 12-27-2023 MCH (RBC) [Entitic mass] 28.5 pg 26.7-34.0 [facility] MCHC Auto (RBC) [Mass/Vol]on 12-27-2023 MCHC (RBC) [Mass/Vol] 32.5 g/dL 29.9-35.2 [facility] MCV Auto (RBC) [Entitic vol] on 12-27-2023 MCV (RBC) [Entitic vol] 87.8 fL 81.0-99.0 [facility] Monocytes Auto (Bld) [#/Vol] on 12-27-2023 Monocytes (Bld) [#/Vol] 0.3 10 3/uL 0.3-0.8 [facility] Monocytes/100 WBC Auto (Bld) on 12-27-2023 Monocytes/100 WBC (Bld) 6.4 % 1.7-12.0 [facility] Neutrophils Auto (Bld) [#/Vo l]on 12-27-2023 Neutrophils (Bld) [#/Vol] 2.2 10 3/uL 1.4-6.5 [facility] Neutrophils/100 WBC Auto (Bl d)on 12-27-2023 Neutrophils/100 WBC (Bld) 41.8 % Low 43.0-75.0 [facility] No Panel Informationon 12-26 Eosinophils # (Auto) 0.4 10 3/uL 0.0-0.7 [facility] Immature Granulocyte # (Auto) 0.02 10 3/uL 0.00-0.03 [facility] Platelet mean volume Auto (B ld) [Entitic vol]on 12-27-2023 Platelet mean volume (Bld) [Entitic vol] 9.6 fL 9.5-13.5 [facility] Platelets Auto (Bld) [#/Vol] on 12-27-2023 Platelets (Bld) [#/Vol] 190 10 3/uL 150-450 [facility] RBC Auto (Bld) [#/Vol]on RBC (Bld) [#/Vol] 4.52 10 6/uL 4.20-5.40 [facility] Serum or plasma albumin/glob ulin mass ratioon 12-27-2023 Albumin/Globulin [Mass ratio] 1.2 {ratio} [facility] Serum or plasma anion gap de terminationon 12-27-2023 Anion gap [Moles/Vol] 14.7 mmol/L [facility] Serum or plasma total choles terol/high density lipoprotein (HDL) cholesterol mass desiree 12-27-2023 Cholesterol.total/Chol esterol in HDL [Mass ratio] 3.8 {ratio} [facility] Comment on above: 3.3 - 4.4 [...] BERNY QUISPE Date: 2022-08-24 07:19 Normal [facility] CBC AUTO DIFFon 03-30-2022 BASO # 0.0 103/ul Normal 0.0-0.1 [facility] Comment on above: Performed By: #### C BC #### [facility] [address] [place] [address] Dr. Rc Foster Basophils/100 WBC (Bld) 0.4 % Normal 0.2-2.0 [facility] Comment on above: Performed By: #### C BC #### [facility] [address] [place] [address] Dr. Rc Foster EO # 0.3 103/ul Normal 0.0-0.7 [facility] Comment on above: Performed By: #### C BC #### [facility] [address] [place] [address] Dr. Rc Foster Eosinophils/100 WBC (Bld) 4.9 % Normal 0.9-7.0 [facility] Comment on above: Performed By: #### C BC #### [facility] [address] [place] [address] Dr. Rc Foster Erythrocyte distribution width (RBC) [Ratio] 12.2 % Normal 11.0-15.0 [facility] Comment on above: Performed By: #### C BC #### [facility] [address] [place] [address] Dr. Rc Foster Hematocrit (Bld) [Volume fraction] 39.8 % Normal 36.0-48.0 [facility] Comment on above: Performed By: #### C BC #### [facility] [address] [place] [address] Dr. Rc Foster Hemoglobin (Bld) [Mass/Vol] 13.1 g/dL Normal 12.0-16.0 [facility] Comment on above: Performed By: #### C BC #### [facility] [address] [place] [address] Dr. Rc Foster IG # 0.02 10e3/ul Normal 0.00-0.03 [facility] Comment on above: Performed By: #### C BC #### [facility] [address] [place] [address] Dr. Rc Foster IG % 0.4 % Normal 0.0-0.5 [facility] Comment on above: Performed By: #### C BC #### [facility] [address] [place] [address] Dr. Rc Foster LYMPH # 2.1 103/ul Normal 1.2-3.8 [facility] Comment on above: Performed By: #### C BC #### [facility] [address] [place] [address] Dr. Rc Foster Lymphocytes/100 WBC (Bld) 37.1 % Normal 20.5-60.0 [facility] Comment on above: Performed By: #### C BC #### [facility] [address] [place] [address] Dr. Rc Foster MANUAL DIFF REQ NO Normal [facility] Comment on above: Performed By: #### C BC #### [facility] [address] [place] [address] Dr. Rc Foster MCH (RBC) [Entitic mass] 28.7 pg Normal 26.7-34.0 [facility] Comment on above: Performed By: #### C BC #### [facility] [address] [place] [address] Dr. Rc Foster MCHC (RBC) [Mass/Vol] 32.9 g/dL Normal 29.9-35.2 [facility] Comment on above: Performed By: #### C BC #### [facility] [address] [place] [address] Dr. Rc Foster MCV (RBC) [Entitic vol] 87.1 fL Normal 81.0-99.0 [facility] Comment on above: Performed By: #### C BC #### [facility] [address] [place] [address] Dr. Rc Foster MONO # 0.4 103/ul Normal 0.3-0.8 [facility] Comment on above: Performed By: #### C BC #### [facility] [address] [place] [address] Dr. Rc Foster Monocytes/100 WBC (Bld) 6.7 % Normal 1.7-12.0 [facility] Comment on above: Performed By: #### C BC #### [facility] [address] [address] [address] Rc Foster NEUT # 2.9 103/ul Normal 1.4-6.5 [facility] Comment on above: Performed By: #### C BC #### [facility] [address] [address] [address] Rc Foster Neutrophils/100 WBC (Bld) 50.5 % Normal 43.0-75.0 [facility] Comment on above: Performed By: #### C BC #### [facility] [address] [address] [address] Rc Foster Platelet mean volume (Bld) [Entitic vol] 9.7 fL Normal 9.5-13.5 [facility] Comment on above: Performed By: #### C BC #### [facility] [address] [place] [address] Dr. Rc Foster PLT 189 103/ul Normal 150-450 [facility] Comment on above: Performed By: #### C BC #### [facility] [address] [place] [address] Dr. Rc Foster RBC 4.57 106/ul Normal 4.20-5.40 [facility] Comment on above: Performed By: #### C BC #### [facility] [address] [place] [address] Dr. Rc Foster WBC 5.7 103/ul Normal 4.0-11.0 [facility] Comment on above: Performed By: #### C BC #### [facility] [address] [place] [address] Dr. Rc Foster GLYCOHEMOGLOBIN A1Con 2021 ADA RECOMMENDATION SEE BELOW Normal [facility] Comment on above: Result Comment: ADA RECOMMENDED LIMIT 4.0 - 6.0 ADA THERAPEUTIC TARGET < 7.0 ACTION SUGGESTED > 7.0 Performed By: #### A 1C #### [facility] [address] [place] [address] Dr. Rc Foster Glucose [Mass/Vol] 143 mg/dL Normal [facility] Comment on above: Performed By: #### A 1C #### [facility] [address] [place], [place] [address] Dr. Rc Foster HbA1c (Bld) [Mass fraction] 6.6 % Critically high 4.5-6.2 [facility] Comment on above: Performed By: #### A 1C #### [facility] [address] [place], [place] [address] Dr. Rc Foster LIPID PROFILEon 03-30-2022 CHOL-HDL RATIO NORM SEE BELOW Normal [facility] Comment on above: Result Comment: 3.3 - 4.4 LOW RISK 4.4 - 7.1 AVERAGE RISK 7.1 - 11.0 MODERATE RISK >11.0 HIGH RISK Performed By: #### T MARY JANE, CMP, LIPID ####[facility] [address] [place], [place] [address]BeRodger Foster Cholesterol [Mass/Vol] 184 mg/dL Normal <=200 [facility] Comment on above: Performed By: #### T MARY JANE, CMP, LIPID ####[facility] [address] [place], [place] [address]NpRodger Foster Cholesterol in HDL [Mass/Vol] 42 mg/dL Normal 40-60 [facility] Comment on above: Performed By: #### T MARY JANE, CMP, LIPID ####[facility] [address] [place], [place] [address]Dp. Rc Foster Cholesterol in LDL [Mass/Vol] 87.0 mg/dL Normal [facility] Comment on above: Performed By: #### T MARY JANE, CMP, LIPID ####[facility] [address] [place], [place] [address]TmRodger Foster Cholesterol.total/Chol esterol in HDL [Mass ratio] 4.4 {ratio} Normal [facility] Comment on above: Performed By: #### T MARY JANE, CMP, LIPID ####[facility] [address] [place], [place] [address]VdRodger Foster HDL NORMAL > or = 60 mg/dl - LO W CARDIOVASCULAR RISK <40 mg/dl - HIGH CARDIOVASCULAR RISK Normal [facility] Comment on above: Performed By: #### T SH, CMP, LIPID ####[facility] [address] [place] [address]Dr. Rc Foster LDL CALC NORMAL SEE BELOW Normal [facility] Comment on above: Result Comment: <100 mg/dl OPTIMAL 100 - 129 mg/dl NEAR OR ABOVE OPTIMAL 130 - 159 mg/dl BORDERLINE HIGH 160 - 189 mg/dl HIGH >190 mg/dl VERY HIGH Performed By: #### T SH, CMP, LIPID ####[facility] [address] [place] [address]Dr. Rc Foster Triglyceride [Mass/Vol] 275 mg/dL Critically high <=150 [facility] Comment on above: Performed By: #### T MARY JANE, CMP, LIPID ####[facility] [address] [place] [address]Dr. Rc Foster VLDL CALC 55.0 mg/dL Normal [facility] Comment on above: Performed By: #### T MARY JANE, CMP, LIPID ####[facility] [address] [place] [address]Dr. Rc Foster PROF 14(COMP METB)on 022 Albumin [Mass/Vol] 4.0 g/dL Normal 3.4-5.0 [facility] [place] Comment on above: Performed By: #### T MARY JANE, CMP, LIPID ####[facility] [address] [place] [address]Dr. Rc Foster Albumin/Globulin [Mass ratio] 1.1 {ratio} Normal [facility] Comment on above: Performed By: #### T MARY JANE, CMP, LIPID ####[facility] [address] [place] [address]Dr. Rc Foster ALP [Catalytic activity/Vol] 71 U/L Normal 46-116 [facility] Comment on above: Performed By: #### T SH, CMP, LIPID ####[facility] [address] [place] [address]Dr. Rc Foster ALT [Catalytic activity/Vol] 29 U/L Normal 14-59 [facility] Comment on above: Performed By: #### T SH, CMP, LIPID ####[facility] [address] [place] [id number]. Rc Foster Anion gap [Moles/Vol] 13.2 mmol/L Normal [facility] Comment on above: Performed By: #### T SH, CMP, LIPID ####[facility] [address] [place] [id number]. Rc Foster AST [Catalytic activity/Vol] 17 U/L Normal 15-37 [facility] Comment on above: Performed By: #### T SH, CMP, LIPID ####[facility] [address] [place] [id number]. Rc Foster Bilirubin [Mass/Vol] 0.6 mg/dL Normal 0.2-1.0 [facility] Comment on above: Performed By: #### T SH, CMP, LIPID ####[facility] [address] [place] [address]Dr. Rc Foster Calcium [Mass/Vol] 9.0 mg/dL Normal 8.5-10.1 [facility] [place] Comment on above: Performed By: #### T SH, CMP, LIPID ####[facility] [address] [place] [id number]. Rc Foster Chloride [Moles/Vol] 102 mmol/L Normal 98-107 [facility] Comment on above: Performed By: #### T SH, CMP, LIPID ####[facility] [address] [place] [id number]. Rc Foster CO2 [Moles/Vol] 27.3 mmol/L Normal 21.0-32.0 [facility] Comment on above: Performed By: #### T SH, CMP, LIPID ####[facility] [address] [place] [id number]. Rc Foster Creatinine [Mass/Vol] 1.00 mg/dL Normal 0.55-1.02 [facility] Comment on above: Performed By: #### T SH, CMP, LIPID ####[facility] [address] [place] [id number]. Rc Foster EGFR-AF MOZAMBICAN >60 Normal >=60 [facility] Comment on above: Performed By: #### T SH, CMP, LIPID ####[facility] [address] [place] [address]Dr. Rc Foster EGFR-NON AF MOZAMBICAN 56 mL/min/1.73m2 Critically low >=60 [facility] Comment on above: Performed By: #### T SH, CMP, LIPID ####[facility] [address] [place] [address]Dr. Rc Foster Globulin (S) [Mass/Vol] 3.5 g/dL Normal [facility] Comment on above: Performed By: #### T SH, CMP, LIPID ####[facility] [address] [place] [address]Dr. Rc Foster Glucose [Mass/Vol] 159 mg/dL Critically high 74-106 [facility] Comment on above: Performed By: #### T SH, CMP, LIPID ####[facility] [address] [place] [address]Dr. Rc Foster Potassium [Moles/Vol] 4.5 mmol/L Normal 3.5-5.1 [facility] Comment on above: Performed By: #### T SH, CMP, LIPID ####[facility] [address] [place], [place] [address]Dr. Rc Foster Protein [Mass/Vol] 7.5 g/dL Normal 6.4-8.2 [facility] Comment on above: Performed By: #### T SH, CMP, LIPID ####[facility] [address] [place] [address]Dr. Rc Foster Sodium [Moles/Vol] 138 mmol/L Normal 136-145 [facility] Comment on above: Performed By: #### T SH, CMP, LIPID ####[facility] [address] [place] [address]Dr. Rc Foster Urea nitrogen [Mass/Vol] 23.0 mg/dL Critically high 7.0-18.0 [facility] Comment on above: Performed By: #### T SH, CMP, LIPID ####[facility] [address] [place], [place] [address]Si. Rc Foster Urea nitrogen/Creatinine [Mass ratio] 23.0 mg/mg Normal [facility] Comment on above: Performed By: #### T MARY JANE, CMP, LIPID ####[facility] [address] [place], [place] [address]Om. Rc Foster TSHon 03-30-2022 TSH 2.807 uIU/mL Normal 0.358-3.740 [facility] Comment on above: Performed By: #### T SH, CMP, LIPID ####[facility] [address] [place], [place] [address]Yd. Rc Foster US THYROIDon 03-30-2022 US THYROID [...] BERNY QUISPE Date: 2022-03-30 11:03 Normal [facility] MG MAMM SCREEN 3D LEX CADon 03-19-2022 MG MAMM SCREEN 3D LEX CAD Patient: CARROLL FUENTES Exam Date: 03/19/2022 : 1960 Gender:F Ordering : DR ROBERT VILLASENOR D.O. Admission #: [id number] Family : Order #: [id number] CLICK HERE TO VIEW EXAM RADIOLOGY REPORT [...] Treatments None Family Cancers None LOCATION: [facility] BREAST COMPOSITION: Scattered areas fibroglandular density. FINDINGS: [...] M.D. on 03/23/2022 at 11:59 Normal [facility] CBC AUTO DIFFon 11-27-2021 BASO # 0.0 103/ul Normal 0.0-0.1 [facility] Comment on above: Performed By: #### C BC #### [facility] [address] [address] [address] Rc Foster Basophils/100 WBC (Bld) 0.7 % Normal 0.2-2.0 [facility] Comment on above: Performed By: #### C BC #### [facility] [address] [address] [address] Rc Foster EO # 0.6 103/ul Normal 0.0-0.7 [facility] Comment on above: Performed By: #### C BC #### [facility] [address] [address] [address] Rc Foster Eosinophils/100 WBC (Bld) 10.3 % Critically high 0.9-7.0 [facility] Comment on above: Performed By: #### C BC #### [facility] [address] [place] [address] Dr. Rc Foster Erythrocyte distribution width (RBC) [Ratio] 12.4 % Normal 11.0-15.0 [facility] Comment on above: Performed By: #### C BC #### [facility] [address] [place] [address] Dr. Rc Foster Hematocrit (Bld) [Volume fraction] 41.2 % Normal 36.0-48.0 [facility] Comment on above: Performed By: #### C BC #### [facility] [address] [place] [address] Dr. Rc Foster Hemoglobin (Bld) [Mass/Vol] 13.4 g/dL Normal 12.0-16.0 [facility] Comment on above: Performed By: #### C BC #### [facility] [address] [place] [address] Dr. Rc Foster IG # 0.01 10e3/ul Normal 0.00-0.03 [facility] Comment on above: Performed By: #### C BC #### [facility] [address] [place] [address] Dr. Rc Foster IG % 0.2 % Normal 0.0-0.5 [facility] Comment on above: Performed By: #### C BC #### [facility] [address] [place] [address] Dr. Rc Foster LYMPH # 2.3 103/ul Normal 1.2-3.8 [facility] Comment on above: Performed By: #### C BC #### [facility] [address] [place] [address] Dr. Rc Foster Lymphocytes/100 WBC (Bld) 40.6 % Normal 20.5-60.0 [facility] Comment on above: Performed By: #### C BC #### [facility] [address] [place] [address] Dr. Rc Foster MANUAL DIFF REQ NO Normal [facility] Comment on above: Performed By: #### C BC #### [facility] [address] [address] [address] Rc Foster MCH (RBC) [Entitic mass] 28.8 pg Normal 26.7-34.0 [facility] Comment on above: Performed By: #### C BC #### [facility] [address] [place] [address] Dr. Rc Foster MCHC (RBC) [Mass/Vol] 32.5 g/dL Normal 29.9-35.2 [facility] Comment on above: Performed By: #### C BC #### [facility] [address] [place] [address] Dr. Rc Foster MCV (RBC) [Entitic vol] 88.6 fL Normal 81.0-99.0 [facility] Comment on above: Performed By: #### C BC #### [facility] [address] [place] [address] Dr. Rc Foster MONO # 0.4 103/ul Normal 0.3-0.8 [facility] Comment on above: Performed By: #### C BC #### [facility] [address] [place] [address] Dr. Rc Foster Monocytes/100 WBC (Bld) 7.6 % Normal 1.7-12.0 [facility] Comment on above: Performed By: #### C BC #### [facility] [address] [place] [address] Dr. Rc Foster NEUT # 2.3 103/ul Normal 1.4-6.5 [facility] Comment on above: Performed By: #### C BC #### [facility] [address] [place] [address] Dr. Rc Foster Neutrophils/100 WBC (Bld) 40.6 % Critically low 43.0-75.0 [facility] Comment on above: Performed By: #### C BC #### [facility] [address] [place] [address] Dr. Rc Foster Platelet mean volume (Bld) [Entitic vol] 9.6 fL Normal 9.5-13.5 [facility] Comment on above: Performed By: #### C BC #### [facility] [address] [address] [address] Rc Foster PLT 194 103/ul Normal 150-450 [facility] Comment on above: Performed By: #### C BC #### [facility] [address] [address] [address] Rc Foster RBC 4.65 106/ul Normal 4.20-5.40 [facility] [facility] [place] Comment on above: Performed By: #### C BC #### [facility] [address] [address] [address] Rc Foster WBC 5.5 103/ul Normal 4.0-11.0 [facility] [place] Comment on above: Performed By: #### C BC #### [facility] [address] [place] [address] Dr. Rc Foster GLYCOHEMOGLOBIN A1Con 2021 ADA RECOMMENDATION SEE BELOW Normal [facility] [place] Comment on above: Result Comment: ADA RECOMMENDED LIMIT 4.0 - 6.0 ADA THERAPEUTIC TARGET < 7.0 ACTION SUGGESTED > 7.0 Performed By: #### A 1C #### [facility] [address] [place] [address] Dr. Rc Foster Glucose [Mass/Vol] 131 mg/dL Normal [facility] [place] Comment on above: Performed By: #### A 1C #### [facility] [address] [place] [address] Dr. Rc Foster HbA1c (Bld) [Mass fraction] 6.2 % Normal 4.5-6.2 [facility] [place] Comment on above: Performed By: #### A 1C #### [facility] [address] [place] [address] Dr. Rc Foster PROF CHEM 8 (BAS METB)on Anion gap [Moles/Vol] 15.2 mmol/L Normal [facility] Comment on above: Performed By: #### T SH, BMP #### [facility] [address] [place] [address] Dr. Rc Foster Calcium [Mass/Vol] 8.5 mg/dL Normal 8.5-10.1 [facility] [place] Comment on above: Performed By: #### T SH, BMP #### [facility] [address] [address] [address] Rc Foster Chloride [Moles/Vol] 100 mmol/L Normal 98-107 [facility] [place] Comment on above: Performed By: #### T SH, BMP #### [facility] [address] [address] [address] Rc Foster CO2 [Moles/Vol] 26.6 mmol/L Normal 21.0-32.0 [facility] Comment on above: Performed By: #### T SH, BMP #### [facility] [address] [address] [address] Rc Foster Creatinine [Mass/Vol] 1.15 mg/dL Critically high 0.55-1.02 [facility] [place] Comment on above: Performed By: #### T SH, BMP #### [facility] [address] [place] [address] Dr. Rc Foster EGFR-AF MOZAMBICAN 58 mL/min/1.73m2 Critically low >=60 [facility] [place] Comment on above: Performed By: #### T SH, BMP #### [facility] [address] [place] [address] Dr. Rc Foster EGFR-NON AF MOZAMBICAN 48 mL/min/1.73m2 Critically low >=60 [facility] [place] Comment on above: Performed By: #### T SH, BMP #### [facility] [address] [address] [address] Rc Foster Glucose [Mass/Vol] 211 mg/dL Critically high 74-106 [facility] [place] Comment on above: Performed By: #### T SH, BMP #### [facility] [address] [address] [address] Rc Foster Potassium [Moles/Vol] 4.8 mmol/L Normal 3.5-5.1 [facility] [place] Comment on above: Performed By: #### T SH, BMP #### [facility] [address] [address] [address] Rc Foster Sodium [Moles/Vol] 137 mmol/L Normal 136-145 [facility] [place] Comment on above: Performed By: #### T SH, BMP #### [facility] [address] [address] [address] Rc Foster Urea nitrogen [Mass/Vol] 33.0 mg/dL Critically high 7.0-18.0 [facility] [place] Comment on above: Performed By: #### T SH, BMP #### [facility] [address] [address] [address] Rc Foster Urea nitrogen/Creatinine [Mass ratio] 28.7 mg/mg Normal [facility] [place] Comment on above: Performed By: #### T SH, BMP #### [facility] [address] [address] [address] Rc Foster TSHon 11-27-2021 TSH 0.744 uIU/mL Normal 0.358-3.740 [facility] Comment on above: Performed By: #### T SH, BMP #### [facility] [address] [address] [address] Rc Foster SYMPTOMATIC COVID-19 ANTIGEN on 10-28-2021 EUA Statement SEE BELOW Normal [facility] Comment [...] revoked sooner. Performed By: #### C VDAGS ####[facility] [address] [id number]. Rc Foster SARS-CoV-2 (COVID-19) RNA YARED+probe Ql (Unsp spec) Negative Normal NEGATIVE [facility] [place] Comment on above: Performed By: #### C VDAGS ####[facility] [address] [place], [place] [address]ItDr. Rc Foster GLYCOHEMOGLOBIN A1Con 2021 ADA RECOMMENDATION SEE BELOW Normal [facility] [place] Comment on above: Result Comment: ADA RECOMMENDED LIMIT 4.0 - 6.0 ADA THERAPEUTIC TARGET < 7.0 ACTION SUGGESTED > 7.0 Performed By: #### A 1C #### [facility] [address] [address] [address] Rc Foster Glucose [Mass/Vol] 128 mg/dL Normal [facility] [place] Comment on above: Performed By: #### A 1C #### [facility] [address] [address] [address] Rc Foster HbA1c (Bld) [Mass fraction] 6.1 % Normal 4.5-6.2 [facility] [place] Comment on above: Performed By: #### A 1C #### [facility] [address] [address] [address] Rc Foster Discharge CCD Assessmenton 0 09-06-2020 Discharge CCD Assessment [facility] [place] Patient: CARROLL FUENTES [address] [place] [address] MR#: [id number] DISCHARGE CCD ASSESSMENT : 58 Service Date: 09/06/20 1018 Discharge CCD Assessment Assessment Patient discharged home to continue exercises, pain medication, and wound care Electronically Signed eSign Date and Time Melyssa Flores 09/06/20 1019 Tera Hernandez MD Normal [facility] [place] GLUCOSE METERon 09-06-2020 Glucose [Mass/Vol] 126 mg/dL High 70-99 [facility] Comment on above: Order Comment: CONSE RVATION Result Comment: Fast ing GLUCOSE reference range has been updated per (ADA) [place] Diabetes Association's recommendation. 07/18/2018 Performed By: #### L 500.31324 ####Test performed at: [address] [address] Glucose [Mass/Vol] 205 mg/dL High 70-99 [facility] Comment on above: Order Comment: CONSE RVATION Result Comment: Fast ing GLUCOSE reference range has been updated per (ADA) [place] Diabetes Association's recommendation. 07/18/2018 Insulin per sl scale Performed By: #### L 500.10823 #### Test performed at: [address] [address] Internal Med Progress Noteon 09-06-2020 Internal Med Progress Note [facility] [place] Patient: CARROLL FUENTES [address] [place] [address] MR#: [id number] PROGRESS NOTE - Internal Medicine : 58 [...] - 99 mg/dL) 126 205 177 310 Assessment/Plan-Bacteriologist Soil al Med Problem List 1. S/P cervical [...] RES, Katarzyn a MD 09/06/20 1134 Normal [facility] [place] Orthopedic Progress Noteon 0 09-06-2020 Orthopedic Progress Note [facility] [place] Patient: CARROLL FUENTES [address] [place] [address] MR#: [id number] PROGRESS NOTE - Orthopedic : 58 Service [...] RN 09/06/20 1022 Tera Hernandez MD Normal [facility] [place] Anesthesia Noteon 09-05-2020 Anesthesia Note [facility] [place] Patient: CARROLL FUENTES [address] [place] [address] MR#: [id number] ANESTHESIA NOTE : Service Date: 09/05/20 0812 [...] Signed eSign Date and Time Krystian Akers EMPLOYMENT LAW SPECIALIST-CIRCUS AGENT 09/05/20 0813 Chu Glez MD Normal [facility] [place] BASIC MET PANELon 05-14-2021 Anion gap [Moles/Vol] 12 mmol/L Normal 6-18 [facility] [place] Comment on above: Performed By: #### L 500.94286, L500.22158 #### Test performed at: [address] [address] Calcium [Mass/Vol] 8.7 mg/dL Normal 8.5-10.1 [facility] Comment on above: Performed By: #### L 500.40052, L500.45954 #### Test performed at: [address] [address] Chloride [Moles/Vol] 101 mmol/L Normal 98-107 [facility] [place] Comment on above: Performed By: #### L 500.87638, L500.39769 #### Test performed at: [address] [address] CO2 [Moles/Vol] 25 mmol/L Normal 21-32 [facility] Comment on above: Performed By: #### L 500.23123, L500.73382 #### Test performed at: [address] [address] Creatinine [Mass/Vol] 1.020 mg/dL Normal 0.550-1.020 [facility] Comment on above: Performed By: #### L 500.47792, L500.91449 #### Test performed at: [address] [address] Glucose [Mass/Vol] 264 mg/dL High 70-99 [facility] Comment on above: Result Comment: Fast ing GLUCOSE reference range has been updated per (ADA) [place] Diabetes Association's recommendation. 07/18/2018 Performed By: #### L 500.23797, L500.25686 #### Test performed at: [address] [address] OSM 289 mosm/kg Normal 270-300 [facility] [place] Comment on above: Performed By: #### L 500.34258, L500.07251 #### Test performed at: [address] [address] Potassium [Moles/Vol] 4.5 mmol/L Normal 3.5-5.1 [facility] [place] Comment on above: Performed By: #### L 500.48809, L500.18495 #### Test performed at: [address] [address] Sodium [Moles/Vol] 134 mmol/L Low 136-145 [facility] Comment on above: Performed By: #### L 500.78296, L500.96337 #### Test performed at: [address] [address] Urea nitrogen [Mass/Vol] 17 mg/dL Normal 7-18 [facility] [place] Comment on above: Performed By: #### L 500.72874, L500.11757 #### Test performed at: [address] [address] GFR ESTIMATEon 09-05-2020 IF AMER > 60 Normal > 60 [facility] Comment on above: Result Comment: eGFR (Estimated GFR) Units of measure:mL/min/1.73 meters sq. *CALCULATION REVISED 02/11/2015;IDMS-traceable MDRD equation eGFR is derived from the reexpressed MDRD Study equation using the following parameters: serum creatinine, age, gender and race. An eGFR<60 mL/min/1.73m2 for >3 months is consistent with chronic kidney disease. Refer to KDOQI guidelines for clinical interpretation. Performed By: #### L 500.29189, L500.63352 #### Test performed at: [address] [address] IF non-AFR AMER 55 Low > 60 [facility] Comment on above: Performed By: #### L 500.96479, L500.76194 #### Test performed at: [address] [address] GLUCOSE METERon 09-05-2020 Glucose [Mass/Vol] 177 mg/dL High 70-99 [facility] Comment on above: Order Comment: CONSE RVATION Result Comment: Fast ing GLUCOSE reference range has been updated per (ADA) [place] Diabetes Association's recommendation. 07/18/2018 Performed By: #### L 500.49462 #### Test performed at: [address] [address] Glucose [Mass/Vol] 310 mg/dL High 70-99 [facility] Comment on above: Result Comment: Fast ing GLUCOSE reference range has been updated per (ADA) [place] Diabetes Association's recommendation. 07/18/2018 Insulin per sl scale Performed By: #### L 500.27445 ####Test performed at: [address] [address] Glucose [Mass/Vol] 281 mg/dL High 70-99 [facility] Comment on above: Result Comment: Fast ing GLUCOSE reference range has been updated per (ADA) [place] Diabetes Association's recommendation. 07/18/2018 Insulin per sl scale Performed By: #### L 500.83264 #### Test performed at: [address] [address] Glucose [Mass/Vol] 105 mg/dL High 70-99 [facility] Comment on above: Result Comment: Fast ing GLUCOSE reference range has been updated per (ADA) [place] Diabetes Association's recommendation. 07/18/2018 Performed By: #### L 500.99734 #### Test performed at: [address] [address] HGB AND HCTon 09-05-2020 Hematocrit (Bld) [Volume fraction] 37.5 % Normal 36.0-48.0 [facility] [place] Comment on above: Performed By: #### L 200.97810 #### Test performed at: [address] [address] Hemoglobin (Bld) [Mass/Vol] 12.5 g/dL Normal 12.0-15.0 [facility] [place] Comment on above: Performed By: #### L 200.71523 #### Test performed at: [address] [address] Internal Med Progress Noteon 09-05-2020 Internal Med Progress Note [facility] [place] Patient: CARROLL FUENTES [address] [place] [address] MR#: [id number] PROGRESS NOTE - Internal Medicine : 58 [...] 12.5 Hct (36.0 - 48.0 %) 37.5 Assessment/Plan-Bacteriologist Soil al Med Problem List 1. S/P cervical [...] input. Disc (more content not included)... Normal [facility] [place] OT Therapy Recommendationson 09-05-2020 OT Therapy Recommendations [facility] [place] Patient: CARROLL FUENTES [address] [place] [address] MR#: [id number] OT THERAPY RECOMMENDATIONS : 58 Service Date: 09/05/20 151 Therapy Recommendations Therapy Recommendations Recommendations OT evaluation completed. OT recommends HOME with FAmily assist. No further acute OT needs are indicated at this time. Electronically Signed eSign Date and Time Trupti Rojas OT 09/05/20 151 Normal [facility] Orthopedic Progress Noteon 0 09-05-2020 Orthopedic Progress Note [facility] [place] Patient: CARROLL FUENTES [address] [place] [address] MR#: [id number] PROGRESS NOTE - Orthopedic : 58 Service [...] KHAN 09/05/20 1429 Tera Hernandez MD Normal [facility] [place] PT Therapy Recommendationson 09-05-2020 PT Therapy Recommendations [facility] [place] Patient: CARROLL FUENTES [address] [place] [address] MR#: [id number] PT THERAPY RECOMMENDATIONS : 58 Service Date: 05/14/21 0914 Therapy Recommendations Therapy Recommendations Recommendations PT eval complete. No further acute PT needs. Recommend d/c home /c family assist. Electronically Signed eSign Date and Time Tiffanie Bashir PT 09/05/20 0914 Normal [facility] z OT Inpatient Discharge Not juan 09-05-2020 z OT Inpatient Discharge Note [facility] [place] Patient: CARROLL FUENTES [address] [place], [place] [id number] MR#: [id number] OT INPATIENT DISCHARGE NOTE : 58 Service [...] Time Trupti Rojas OT 09/05/20 1534 Normal [facility] z OT Inpatient Evaluationon 09-05-2020 z OT Inpatient Evaluation [facility] [place] Patient: CARROLL FUENTES [address] [id number] MR#: [id number] OT INPATIENT EVALUATION : 58 Inpatient OT HPI Date of Service 09/05/20 Time In: 1401 Time Out: 1412 Total Treatment Time (Mins) 11 Visit Reason LATERAL RECESS STENOSIS W/ RADICULOPATHY Surgery Type/Date s/p L L4-5 LAmi, foraminotomy, decompression on 09.04.20/ Lumbar spine precautions Referral Date 09/04/20 Tx Diagnosis: LOW BACK PAIN Insurance Name [employer] [facility] Hospital Course Pt is a left hand [...] 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 Objective Precautions Lumbar Spine [...] Excellent Nader (more content not included)... Normal [facility] z PT Inpatient Discharge Not juan 09-05-2020 z PT Inpatient Discharge Note [facility] [place] Patient: CARROLL FUENTES [address] [place] [address] MR#: [id number] PT INPATIENT DISCHARGE NOTE : 58 Service [...] Time Tiffanie Bashir PT 09/05/20 1139 Normal [facility] z PT Inpatient Evaluationon 09-05-2020 z PT Inpatient Evaluation [facility] [place] Patient: CARROLL FUENTES [address] [place], [place] [address] MR#: [id number] PT INPATIENT EVALUATION : 58 Service Date: 09/05/20 0928 Inpatient PT HPI Date of Service 09/05/20 Time In: 0845 Time Out: 0907 Total Treatment Time (Mins) 22 Room Number 624 Visit Reason LATERAL RECESS STENOSIS W/ RADICULOPATHY Surgery Type: L L4-5 lami, foraminotomy, decompression Surgery Date: 09/04/20 Referral Date 09/04/20 Tx Diagnosis: LOW BACK PAIN Insurance Name RAMIRO VERASO [facility] Hospital Course 60 y.o female at [facility] for above sx d/t lateral recess [...] posture. 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 Pt agreeable to use of her [...] Time Tiffanie Bashir PT 09/05/20 1502 Normal [facility] [place] GLUCOSE METERon 09-04-2020 Glucose [Mass/Vol] 94 mg/dL Normal 70-99 [facility] Comment on above: Result Comment: Fast ing GLUCOSE reference range has been updated per (ADA) [place] Diabetes Association's recommendation. 07/18/2018 Performed By: #### L 500.78306 ####Test performed at: [address] [address] Internal Medicine Consultati onon 09-04-2020 Internal Medicine Consultation [facility] [place] Patient: CARROLL FUENTES [address] [place] [address] MR#: [id number] CONSULTATION - Internal Medicine : 58 Service Date: 09/04/20 1540 History of Present Illness Referring Physician Tera [...] 0 ( Reported) Entered as Reported by JORDNO MATHUR on 12/11/18918 Last Action: Reviewed on [...] of Systems (more content not included)... Normal [facility] [place] OPERATIVE REPORTon OPERATIVE REPORT NAME: CARROLL FUENTES MR#: [id number] SURGEON: Tera Hernandez MD DATE OF SURGERY: [...] were no complications. TERA HERNANDEZ MD [facility] PT NAME: CARROLL FUENTES MR#: [id number] [address] [place] [address] ACCT: [id number] : 58 OPERATIVE REPORT JFS/[id number] E/S: Tera Hernandez MD 09/18/[address] [facility] PT NAME: CARROLL FUENTES MR#: [id number] [address] [place] [address] ACCT: [id number] : 58 OPERATIVE REPORT Normal [facility] [place] Primary Residenton [address] [facility] Pt Name: CARROLL FUENTES MR#: [id number] [address] [place] [address] ACCT: [id number] [address] [id number] : 58 Service Date: 09/04/20 1603 Primary Resident/Call Primary Resident: [id number] After Hours Call: [phone] Red Team Electronically Signed eSign Date and Time Ana Flanagan RES 09/16/20 1521 Normal [facility] [place] LUMBAR SPINE 2 OR 3 VIEWSon 09-03-2020 LUMBAR SPINE 2 OR 3 VIEWS STUDY: LUMBAR SPINE 2 OR 3 VIEWS; 09/04/2020 2:57 pm INDICATION: LEFT L4-L5 LAMINECTOMY,FORAMINOTO MY,DECOMPRESSION. COMPARISON: None. ACCESSION NUMBER(S): [id number] ORDERING CLINICIAN: Tera Hernandez FINDINGS: Intraoperative fluoroscopy of the lumbar spine demonstrates surgical instruments posterior to L5. IMPRESSION: As above Normal [facility] [place] CHEST PA/AP & LATERALon CHEST PA/AP & LATERAL STUDY: CHEST PA/AP LATERAL; 08/25/2020 11:00 am INDICATION: SOB/PAT. COMPARISON: None. ACCESSION NUMBER(S): [id number] ORDERING CLINICIAN: Madelyn Leone FINDINGS: The lungs are clear without pleural effusion. Normal heart size, mediastinum, elzbieta, and pulmonary vasculature. IMPRESSION: No active disease in the chest. Normal [facility] [place] CONSULTATION REPORTon 2020 CONSULTATION REPORT NAME: CARROLL FUENTES MR#: [id number] ATMOSPHERIC SCIENCES PROFESSOR: Madelyn Leone MD DATE OF CONSULTATION: 08/25/2020 [...] ox is 98% on room air. [facility] PT NAME: CARROLL FUENTES MR#: [id number] [address] [place] [address] ACCT: [id number] : 58 CONSULTATION HEENT: Atraumatic head. 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 IMPRESSION: 1. Preop clearance for L4-L5 disk [...] courtesy of this consultation. MADELYN LEONE MD MS/MODL/[id number] E/S: Madelyn Leone MD 08/26/[address] [facility] PT NAME: CARROLL FUENTES MR#: [id number] [address] [place] [address] ACCT: [id number] : 58 CONSULTATION Normal [facility] [place] LUMB SP COMP W FLEX/EXT 6 VW S>on 08-08-2020 LUMB SP COMP W FLEX/EXT 6 VWS> STUDY: LUMB SP COMP W FLEX/EXT 6 VWS>; 08/08/2020 9:43 am INDICATION: BACK PAIN. COMPARISON: No available comparisons. ACCESSION NUMBER(S): [id number] ORDERING CLINICIAN: Tera Hernandez TECHNIQUE: 6 views [...] L5-S1 level. No evidence of instability.. Normal [facility] [place] XR SHLDR >/=3V AP/RUSH AP/OTH R RTon [...] on Jul 03 2018 10:17AM EST [id number] [facility] ANES Holly 06-20-2018 ANES POST HNO ID: [id number] Author: Rohit Velarde Service: Anesthesiology Author Type: [...] 20, 2018 TIME: 2:38 PM PAGER/CONTACT #: [facility] ANES PREOPon 06-20-2018 ANES PREOP HNO ID: [id number] Author: Rohit Velarde Service: Anesthesiology Author Type: [...] June 20, 2018 TIME: 9:35 AM CSN: [id number] [facility] BRIEF OP NOTon 06-20-2018 BRIEF OP NOT HNO ID: [id number] Author: Kusum Francisco Service: Orthopaedic Surgery Author Type: Resident Type: Brief Op Note Filed: 06/20/2018 5:49 PM Note Text: BRIEF OP NOTE LOG ID: [id number] Surgery/Procedure Date: 06/20/2018 Incision/Procedure Start Time: 11:18 AM Incision Close/Procedure End Time: 1:17 PM Surgeon(s)/Procedurali st(s) and Msw(s): Surgeon(s) and Role: * Jenna Garsia - [...] 20, 2018 TIME: 5:49 PM PAGER/CONTACT #: [facility] CASE MANAGEMon 06-20-2018 CASE MANAGEM HNO ID: [id number] Author: May Herrera (Sw) Service: Care Management Author Type: Policy Issue Clerk Type: Care Mgt Progress Note Filed: [...] is pcp summary of care sent via [employer] () Nurse to provide discharge instructions. TRANSPORTATION ARRANGEMENTS: Car Spouse ADDITIONAL CONTACT RESOURCES: Needs Prior to Discharge: Ready for Discharge Appointments for Next 45 Days Date Time Provider Location Dept Phone 07/03/2018 10:00 AM CAROLA BAPTISTE AT [phone] 07/03/2018 10:30 AM GABRIEL CANTU) [facility] AT [phone] 07/31/2018 2:15 PM JENNA GARSIA AT [phone] Pt to be discharged home to follow up as above. SIGNATURE: DARIO Saini PATIENT NAME: Carroll Fuentes DATE: June 20, 2018 TIME: 5:31 PM PAGER/CONTACT #: [phone] [facility] CASE MGT INIT [facility] [address] 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 O.Therapy recommend home. Spouse visiting at bedside and will transport pt home later today.Further discharge needs not anticipated.SW/TCC to follow to assist with plans for discharge. SIGNATURE: DARIO Saini PATIENT NAME: Carroll Fuentes DATE: June 20, 2018 TIME: 5:27 PM PAGER/CONTACT #: [phone] [facility] CONSULTon 06-20-2018 CONSULT HNO ID: [id number] Author: Dulce Green Service: General Internal Medicine [...] Disp: Rfl: 06/19/2018 at 0630 rizatriptan (MAXALT CLOTH BALER) 10 mg disintegrating tablet DISSOLVE 1 TABLET [...] the care of your patient. Dulce Green APRN.TROUBLE LOCATER June 20, 2018 4:34 PM [facility] NURSING PROGon 06-20-2018 Protein mass conc HNO ID: [id number] Author: Fela (Rn) FLETCHER Phillips Service: (none) Author Type: Registered Nurse Type: Nursing Progress Note Filed: 06/20/2018 7:39 PM Note Text: Nursing Progress Note Patient Name: Carroll Fuentes Patient Location: [facility]/ [place]-* __ Daily Note: 1545. Care assumed. Pt [...] at bedside. 1720. Dr. Meeks and Dulce NO EXPERIENCE at bedside, plan is to stay for [...] note was completed by: Fela Phillips RN [facility] Protein mass conc HNO ID: [id number] Author: Wendy (Rn) FLETCHER Underwood Service: Nursing Author Type: Registered Nurse Type: Nursing Progress Note Filed: 06/20/2018 10:20 AM Note Text: Nursing Progress Note Patient Name: Carroll Fuentes Patient Location: [facility] [place] HOSPITAL/ S* __ Daily Note:Right interscalene nerve block with ultrasound guidance with Dr. Velarde and Dr. Marlow at bedside. Patient tolerated procedure well, VSS, will continue to monitor as we wait for OR team. Resting comfortably with no complaints of pain at this time. This note was completed by: Wendy Underwood RN [facility] OPERATIVE NOon 06-20-2018 OPERATIVE NO HNO ID: [id number] Author: Jenna Garsia Service: Orthopaedic Surgery Author Type: Physician Type: Operative Report Filed: 06/20/2018 1:25 PM Note Text: [place] [address] [place] OPERATIVE REPORT NAME: Carroll Fuentes [facility] #: [id number] DATE: 06/20/2018 (11:18am-1:17pm) AGE: 58 SURGEON 1: Jenna Garsia M.D. CONTRACT LOADER: 1. Augie Coates M.D. 2. Kusum Prasad M.D. 3. Mundo Pablo OPERATION: Right total shoulder arthroplasty, biceps tenodesis. ANESTHESIA: General anesthesia with regional interscalene nerve block for postoperative pain control. PREOPERATIVE DIAGNOSIS: Right shoulder primary glenohumeral osteoarthritis. POSTOPERATIVE DIAGNOSIS: Right shoulder primary glenohumeral osteoarthritis, biceps tendinopathy. OPERATIVE INDICATIONS: The patient is a 58 year oldwea-gfsz-uua right-hand dominant white female who has a [...] rotator interval stitch was then passed in jfsahu-vm-[id number] fashion with a #2 Ticron suture and tied down to close the lateral rotator interval and set the osteotomy superiorly. The two #2 Fiberwire sutures coming out of the bicipital groove were then sequentially passed in a [id number]-rlyqm fashion medial to the horizontal mattress and [...] none COMPLICATIONS: none apparent Jenna Garsia M.D. [facility] PT EDon 06-20-2018 PT ED HNO ID: [id number] Author: Cindy (Rn) FLETCHER Griffin Service: (none) [...] Signed By: Cindy Griffin RN In Department: [facility] THERAPY NTon 06-20-2018 THERAPY NT HNO ID: [id number] Author: Abi ValenciaOtTyesha Phillips Service: Occupational Therapy Author Type: Occupational Therapist Type: Therapy (PT/OT/Speech/Resp) Filed: 06/20/2018 4:59 PM Note Text: Occupational Therapy Evaluation SERVICE DATE: 06/20/2018 SERVICE TIME: 1550 to 1640 ROOM: [address] Recommended Discharge Disposition: Home Anticipated Discharge [...] daily living (ADL) Interventions Provided: Evaluation;Therapeutic Exercise (00436);Self Jail Management (03760) $ Evaluation-Low (38005) Billed Units: 1 unit Therapeutic Exercise (71956) Treatment Minutes: 10 1 unit Skilled Intervention(s): Education in Self Jail Management (16774) Treatment Minutes: 28 2 units Skilled Intervention(s): [...] Patient Lives With: Spouse Assistance 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 Number Of Stairs To Bed/Bath: 0 [...] DATE: June 20, 2018 TIME: 4:54 PM [facility] XR SHOULDER 2V AP/TRUE AP [...] Jun 20 2018 2:03P Dictated by: VALDEZ NATON MD This examination was interpreted and the report reviewed and electronically signed by: VALDEZ ANTON MD on Jun 20 2018 2:04PM EST [id number] [facility] NURSING PROGon 06-09-2018 Protein mass conc HNO ID: [id number] Author: Ivana (Rn) FLETCHER Heller Service: Nursing [...] RN June 15, 2018 4:39 PM [facility] Type and SCR (30D)on 019 ABO/RH(D) Positive [facility] HOSPon 04-28-2018 HOSP Patient:Dahm,Patrici a MRN: Height:5' 2 (1.575 m) Weight:186 lb (84.369 kg) Outpatient Medications as of 06/20/18: calcium phosphate dibas/vit D3 (VITAMIN D, WITH CALCIUM, ORAL) docusate sodium (COLACE) 100 mg capsule aspirin, enteric coated (ECOTRIN LOW STRENGTH) 81 mg EC tablet oxyCODONE-acetaminophe n (PERCOCET) 5-325 mg tablet rizatriptan (MAXALT CLOTH BALER) 10 mg disintegrating tablet mupirocin (BACTROBAN) 2 [...] 36.0 Progress Notes (RADIO CT SCAN [facility]): RT Lillian, Tech 06/07/2018 10:04 [...] RT Lillian June 07, 2018 9:54 AM [facility] Vital Signs Date Time Vital Sign Value Performing Clinician Facility 01-23-2025 11:48-0400 Body height 154.94 cm Robert Ball DO Work Phone: [facility] 01-23-2025 11:48-0400 Body mass index (BMI) [Ratio] 31.8 kg/m2 Robert Ball DO Work Phone: [facility] 01-23-2025 11:48-0400 Body weight 76.37 kg Robert Ball DO Work Phone: [facility] 01-23-2025 11:48-0400 Diastolic blood pressure 76 mm[Hg] Robert Ball DO Work Phone: [facility] 01-23-2025 11:48-0400 Heart rate 68 /min Robert Ball DO Work Phone: [facility] 01-23-2025 11:48-0400 Respiratory rate 12 /min Robert Ball DO Work Phone: [facility] 01-23-2025 11:48-0400 Systolic blood pressure 120 mm[Hg] Robert Ball DO Work Phone: [facility] 11-28-2024 13:37-0400 Body height 154.94 cm Robert Ball DO Work Phone: [facility] 11-28-2024 13:37-0400 Body mass index (BMI) [Ratio] 31.8 kg/m2 Robert Ball DO Work Phone: [facility] 11-28-2024 13:37-0400 Body weight 76.43 kg Robert Ball DO Work Phone: [facility] 11-28-2024 13:37-0400 Diastolic blood pressure 72 mm[Hg] Robert Ball DO Work Phone: [facility] 11-28-2024 13:37-0400 Heart rate 77 /min Robert Ball DO Work Phone: [facility] 11-28-2024 13:37-0400 Respiratory rate 12 /min Robert Ball DO Work Phone: [facility] 11-28-2024 13:37-0400 Systolic blood pressure 107 mm[Hg] Robert Ball DO Work Phone: [facility] 10-11-2024 10:42-0400 Body height 154.94 cm Robert Ball DO Work Phone: [facility] 10-11-2024 10:42-0400 Body mass index (BMI) [Ratio] 31.8 kg/m2 Robert Ball DO Work Phone: [facility] 10-11-2024 10:42-0400 Body weight 76.31 kg Robert Ball DO Work Phone: [facility] 10-11-2024 10:42-0400 Diastolic blood pressure 69 mm[Hg] Robert Ball DO Work Phone: [facility] 10-11-2024 10:42-0400 Heart rate 66 /min Robert Ball DO Work Phone: [facility] 10-11-2024 10:42-0400 Respiratory rate 12 /min Robert Ball DO Work Phone: [facility] 10-11-2024 10:42-0400 Systolic blood pressure 103 mm[Hg] Robert Ball DO Work Phone: [facility] 09-12-2024 15:22-0400 Body height 154.94 cm Robert Ball DO Work Phone: [facility] 09-12-2024 15:22-0400 Body mass index (BMI) [Ratio] 32.3 kg/m2 Robert Ball DO Work Phone: [facility] 09-12-2024 15:22-0400 Body weight 77.79 kg Robert Ball DO Work Phone: [facility] 09-12-2024 15:22-0400 Diastolic blood pressure 79 mm[Hg] Robert Ball DO Work Phone: [facility] 09-12-2024 15:22-0400 Heart rate 69 /min Robert Ball DO Work Phone: [facility] 09-12-2024 15:22-0400 Respiratory rate 12 /min Robert Ball DO Work Phone: [facility] 09-12-2024 15:22-0400 Systolic blood pressure 133 mm[Hg] Robert Ball DO Work Phone: [facility] 07-25-2024 09:00-0400 Diastolic blood pressure 79 mm[Hg] [facility] 07-25-2024 09:00-0400 Heart rate 66 /min [facility] 07-25-2024 09:00-0400 Respiratory rate 12 /min [facility] 07-25-2024 09:00-0400 Systolic blood pressure 161 mm[Hg] [facility] 07-18-2024 10:47-0400 Body height 154.94 cm [facility] 07-18-2024 10:47-0400 Body mass index (BMI) [Ratio] 32.8 kg/m2 [facility] 07-18-2024 10:47-0400 Body weight 78.95 kg [facility] 07-18-2024 10:47-0400 Diastolic blood pressure 74 mm[Hg] [facility] 07-18-2024 10:47-0400 Heart rate 68 /min [facility] 07-18-2024 10:47-0400 Respiratory rate 12 /min [facility] 07-18-2024 10:47-0400 Systolic blood pressure 134 mm[Hg] [facility] 07-13-2024 10:11-0400 Body height 154.94 cm [facility] 07-13-2024 10:11-0400 Body mass index (BMI) [Ratio] 32.9 kg/m2 [facility] 07-13-2024 10:11-0400 Body weight 79.01 kg [facility] 07-13-2024 10:11-0400 Diastolic blood pressure 77 mm[Hg] [facility] 07-13-2024 10:11-0400 Heart rate 65 /min [facility] 07-13-2024 10:11-0400 Respiratory rate 12 /min [facility] 07-13-2024 10:11-0400 Systolic blood pressure 117 mm[Hg] [facility] 07-11-2024 08:30-0400 Body temperature 98.6 [degF] Jose Sharif MD Work Phone[facility] 07-11-2024 08:30-0400 Diastolic blood pressure 62 mm[Hg] Jose Sharif MD Work Phone: [facility] 07-11-2024 08:30-0400 Heart rate 88 /min Jose Sharif MD Work Phone: [email or web address] 07-11-2024 08:30-0400 Respiratory rate 16 /min Jose Sharif MD Work Phone: [facility] 07-11-2024 08:30-0400 SaO2% (BldA) [Mass fraction] 98 % Jose Sharif MD Work Phone: [facility] 07-11-2024 08:30-0400 Systolic blood pressure 117 mm[Hg] Jose Sharif MD Work Phone: [facility] 07-06-2024 20:16-0400 Body height 154.9 cm Jose Sharif MD Work Phone: [facility] 07-06-2024 20:16-0400 Body mass index (BMI) [Ratio] 33.07 kg/m2 Jose Sharif MD Work Phone: [facility] 07-06-2024 20:16-0400 Body weight 79.38 kg Jose Sharif MD Work Phone: [facility] 07-04-2024 15:04-0400 Body height 154.94 cm [facility] 07-04-2024 15:04-0400 Body mass index (BMI) [Ratio] 32.9 kg/m2 [facility] 07-04-2024 15:04-0400 Body weight 79.06 kg [facility] 07-04-2024 15:04-0400 Diastolic blood pressure 79 mm[Hg] [facility] 07-04-2024 15:04-0400 Heart rate 69 /min [facility] 07-04-2024 15:04-0400 Respiratory rate 12 /min [facility] 07-04-2024 15:04-0400 Systolic blood pressure 177 mm[Hg] [facility] 06-25-2024 10:11-0500 Body temperature 97.3 [degF] [facility] 06-25-2024 10:11-0500 Diastolic blood pressure 76 mm[Hg] [facility] 06-25-2024 10:11-0500 Heart rate 54 /min [facility] 06-25-2024 10:11-0500 Respiratory rate 16 /min [facility] 06-25-2024 10:11-0500 SaO2% (BldA) [Mass fraction] 98 % [facility] 06-25-2024 10:11-0500 Systolic blood pressure 119 mm[Hg] [facility] 06-25-2024 10:07-0500 Body height 154.94 cm [facility] 06-25-2024 10:07-0500 Body mass index (BMI) [Ratio] 32.9 kg/m2 [facility] 06-25-2024 10:07-0500 Body weight 79.15 kg [facility] 02-24-2024 14:13-0400 Body height 154.94 cm [facility] 02-24-2024 14:13-0400 Body mass index (BMI) [Ratio] 33.1 kg/m2 [facility] 02-24-2024 14:13-0400 Body temperature 96 [degF] [facility] 02-24-2024 14:13-0400 Body weight 79.6 kg [facility] 02-24-2024 14:13-0400 Diastolic blood pressure 84 mm[Hg] [facility] 02-24-2024 14:13-0400 Heart rate 66 /min [facility] 02-24-2024 14:13-0400 Systolic blood pressure 159 mm[Hg] [facility] 12-20-2023 15:35-0400 Body height 154.94 cm [facility] 12-20-2023 15:35-0400 Body mass index (BMI) [Ratio] 33.8 kg/m2 [facility] 12-20-2023 15:35-0400 Body weight 81.19 kg [facility] 12-20-2023 15:35-0400 Diastolic blood pressure 80 mm[Hg] [facility] 12-20-2023 15:35-0400 Heart rate 78 /min [facility] 12-20-2023 15:35-0400 Respiratory rate 12 /min [facility] 12-20-2023 15:35-0400 Systolic blood pressure 134 mm[Hg] [facility] 04-29-2023 09:00-0500 Body height 154.94 cm Robert Ball Other [email or web address] Other 04-29-2023 09:00-0500 Body mass index (BMI) [Ratio] 33.14 kg/m2 Robert Ball Other [email or web address] Other 04-29-2023 09:00-0500 Body weight 79.56 kg Robert Ball Other [email or web address] Other 04-29-2023 09:00-0500 Diastolic blood pressure 89 mm[Hg] Robert Ball Other [email or web address] Other 04-29-2023 09:00-0500 Respiratory rate 12 /min Robert Ball Other [email or web address] Other 04-29-2023 09:00-0500 Systolic blood pressure 155 mm[Hg] Robert Ball Other [email or web address] Other 12-20-2022 13:45-0400 Body height 154.94 cm Robert Ball Other [email or web address] Other 12-20-2022 13:45-0400 Body mass index (BMI) [Ratio] 34.12 kg/m2 Robert Ball Other [email or web address] Other 12-20-2022 13:45-0400 Body weight 81.92 kg Robert Ball Other [email or web address] Other 12-20-2022 13:45-0400 Diastolic blood pressure 96 mm[Hg] Robert Ball Other [email or web address] Other 12-20-2022 13:45-0400 Respiratory rate 12 /min Robert Ball Other [email or web address] Other 12-20-2022 13:45-0400 Systolic blood pressure 179 mm[Hg] Robert Ball Other [email or web address] Other 08-04-2022 09:45-0400 Body height 154.94 cm Robert Ball Other [email or web address] Other 08-04-2022 09:45-0400 Body mass index (BMI) [Ratio] 33.33 kg/m2 Robert Villasenor Other [email or web address] Other 08-04-2022 09:45-0400 Body weight 80.02 kg Robert Villasenor Other [email or web address] Other 08-04-2022 09:45-0400 Diastolic blood pressure 77 mm[Hg] Robert Villasenor Other [email or web address] Other 08-04-2022 09:45-0400 Respiratory rate 12 /min Robert Villasenor Other [email or web address] Other 08-04-2022 09:45-0400 Systolic blood pressure 128 mm[Hg] Robert Villasenor Other [email or web address] Other Encounters Encounter Date Encounter Type Care Provider Facility Start: 01-28-2025 End: 01-28-2025 ambulatory Miriam Barron MD Facility:[facility] Start: 01-23-2025 End: 01-23-2025 ambulatory Robert Villasenor DO Work Phone: [facility] Work Phone: Start: 01-23-2025 End: 01-23-2025 Patient encounter procedure Robert Villasenor DO [facility] Work Phone: Start: 11-28-2024 End: 11-28-2024 ambulatory Robert Villasenor DO Work Phone: [facility] Work Phone: Start: 11-28-2024 End: 11-28-2024 Patient encounter procedure Robert Villasenor DO [facility] Work Phone: Start: 11-23-2024 End: 11-25-2024 [facility] Start: 11-23-2024 End: 11-25-2024 Subsequent hospital visit by physician Tomás Helton DO Work Phone: [facility] MRI Comment on above: Osteoarthritis of ri ght knee, unspecified osteoarthritis type Start: 10-13-2024 Non-patient / Non-visit Robert barnard [employer] Work Phone: Start: 10-11-2024 End: 10-11-2024 Patient encounter procedure Robert Villasenor [facility] Work Phone: Start: 10-11-2024 End: 10-11-2024 Patient encounter status Robert Villasenor DO [facility] Start: 09-21-2024 Non-patient / Non-visit Robert barnard [employer] Work Phone: Start: 09-14-2024 [facility]-patient / [facility] Work [facility]: Start: 09-12-2024 End: 09-12-2024 Patient encounter procedure Robert Villasenor [facility] Work Phone: Start: 07-25-2024 End: 07-25-2024 ambulatory [facility] Work Phone: Start: 07-25-2024 End: 07-25-2024 Patient encounter procedure [facility] Work Phone: Start: 07-18-2024 End: 07-18-2024 ambulatory [facility] Work Phone: Start: 07-18-2024 End: 07-18-2024 Patient encounter procedure [facility] Work Phone: Start: 07-18-2024 Non-patient / Non-visit [facility] Work Phone: Start: 07-13-2024 End: 07-13-2024 ambulatory [facility] Work Phone: Start: 07-13-2024 End: 07-13-2024 Patient encounter procedure [facility] Work Phone: Start: 07-12-2024 Non-patient / Non-visit [facility] Work Phone: Start: 07-11-2024 Non-patient / Non-visit [facility] Work Phone: Start: 07-06-2024 End: 07-11-2024 Evaluation and management of inpatient Jose Sharif MD Work Phone: [facility] Start: 07-04-2024 End: 07-04-[address] [facility] Work Phone: Start: 07-04-2024 End: 07-04-2024 Encounter for other preprocedural examination [facility] Start: 07-04-2024 End: 07-04-2024 Patient encounter procedure [facility] Work Phone: Start: 06-27-2024 Non-patient / Non-visit [facility] Work Phone: Start: 06-25-2024 End: 06-25-2024 ambulatory [facility] Work Phone: Start: 06-25-2024 End: 06-25-2024 Patient encounter procedure [facility] Work Phone: Start: 06-21-2024 ambulatory Raisa New KAUFFMANES [facility] Start: 06-01-2024 Non-patient / Non-visit [facility] Work Phone: Start: 05-31-2024 Non-patient / Non-visit [facility] Work Phone: Start: 04-09-2024 End: 04-09-2024 ambulatory Miriam Barron MD Facility: [facility] Start: 02-24-2024 End: 02-24-2024 ambulatory [facility] Work Phone: Start: 02-24-2024 End: 02-24-2024 Patient encounter procedure [facility] Work Phone: Start: 02-22-2024 Non-patient / Non-visit [facility] Work Phone: Start: 12-27-2023 Non-patient / Non-visit [facility] [employer] Work Phone: Start: 12-20-2023 Patient encounter status [facility] Start: 12-20-2023 End: 12-20-[address] [facility] Work Phone: Start: 12-20-2023 End: 12-20-2023 Patient encounter procedure [facility] Work Phone: Start: 06-01-2023 End: 06-01-2023 ambulatory Robert Villasenor Other [email or web address] Other Start: 06-01-2023 Telephone encounter Robert Villasenor [facility] Start: 05-13-2023 End: 05-13-2023 ambulatory Robert Villasenor Other [email or web address] Other Start: 05-13-2023 Telephone encounter Robert Villasenor [facility] Start: 05-09-2023 End: 05-09-2023 ambulatory Robert Villasenor Other [email or web address] Other Start: 05-09-2023 Telephone encounter Robert Ball [facility] Start: 05-04-2023 End: 05-04-2023 ambulatory Robert Ball Other [email or web address] Other Start: 05-04-2023 Telephone encounter Robert Ball [facility] Start: 05-02-2023 End: 05-02-2023 ambulatory Robert Ball Other [email or web address] Other Start: 05-02-2023 Telephone encounter Robert Ball [facility] Start: 04-29-2023 End: 04-29-2023 ambulatory Robert Ball Other [email or web address] Other Start: 04-29-2023 Office outpatient vi sit 15 minutes Robert Ball [facility] Start: 04-04-2023 End: 04-04-2023 ambulatory Robert Ball Other [email or web address] Other Start: 04-04-2023 Telephone encounter Robert Ball [facility] Start: 01-24-2023 End: 01-24-2023 ambulatory Robert Ball Other [email or web address] Other Start: 01-24-2023 Telephone encounter Robert Ball [facility] Start: 12-23-2022 End: 12-23-2022 ambulatory Robert Ball Other [email or web address] Other Start: 12-23-2022 Telephone encounter Robert Ball [facility] Start: 12-20-2022 End: 12-20-2022 ambulatory Robert Ball Other [email or web address] Other Start: 12-20-2022 Office outpatient vi sit 15 minutes Robert Ball [facility] Start: 12-17-2022 End: 12-17-2022 ambulatory Robert Ball Other [email or web address] Other Start: 12-17-2022 Telephone encounter Robert Ball [facility] Start: 11-08-2022 End: 11-08-2022 ambulatory Robert Ball Other [email or web address] Other Start: 11-08-2022 Telephone encounter Robert Ball [facility] Start: 10-22-2022 End: 10-22-2022 ambulatory Robert Ball Other [email or web address] Other Start: 10-22-2022 Telephone encounter Robert Ball [facility] Start: 10-13-2022 End: 10-13-2022 ambulatory Robert Ball Other [email or web address] Other Start: 10-13-2022 Telephone encounter Robert CHAVARRIA [facility] Start: 09-27-2022 End: 09-27-2022 ambulatory Robert Villasenor Other [email or web address] Other Start: 09-27-2022 Telephone encounter [facility] Start: 08-23-2022 End: 08-24-[address] RISHI PARKER Facility:[facility] Start: 08-04-2022 End: 08-04-2022 ambulatory Robert Villasenor Other [email or web address] Other Start: 08-04-2022 Office outpatient vi sit 25 minutes Robert Villasenor [facility] Start: 04-03-2022 Encounter for genera l adult medical examination without abnormal findings DR ROBERT VILLASENOR [facility] Start: 03-30-2022 End: 03-31-[address] ROBERT [...] 60 yrs+ (1 - 1-dose 75+ series) [employer] Start: 07-11-2025 GFR test (Diabetes, CKD 3-4, OR last GFR 15-59) GFR test (Diabetes, CKD 3-4, OR last GFR 15-59) [employer] Start: 11-23-2024 Influenza vaccination Flu vaccine (# 1) [employer] Start: 04-25-2024 Annual Wellness Visi t (Medicare Advantage) Annual Wellness Visit (Medicare Advantage) [employer] Start: 12-25-2023 COVID-19 Vaccine ( season) COVID-19 Vaccine ( season) [employer] Start: 2014 Screening for osteoporosis DEXA (modify frequency per FRAX score) [employer] Start: 2009 Pneumococcal 50+ yea rs Vaccine (1 of 1 - PCV) Pneumococcal 50+ years Vaccine (1 of 1 - PCV) [employer] Start: 2009 Shingles vaccine (1 of 2) Shingles vaccine (1 of 2) [facility] [employer] Start: 2004 Screening for malign ant neoplasm of colon [facility] [employer] Start: 1999 Screening for malign ant neoplasm of breast Breast cancer screen [email or web address] Start: 1994 Diabetes screen Diabetes screen [facility] [employer] Start: 1989 Screening for malign ant neoplasm of cervix [facility] [employer] Start: 1980 Screening for malign ant neoplasm of cervix Pap smear [facility] [employer] Start: 1978 DTaP/Tdap/Td vaccine (1 - Tdap) DTaP/Tdap/Td vaccine (1 - Tdap) [facility] [employer] Start: 1978 Pneumococcal 50+ yea rs Vaccine (1 of 2 - PCV) Pneumococcal 50+ years Vaccine (1 of 2 - PCV) [facility] [employer] Start: 1977 Glaucoma screening Diabetic retinal exam [facility] [employer] Start: 1977 Hepatitis C screening Hepatitis C sc reen [facility] [employer] Start: 1977 Urine screening for protein Diabetic Alb to Cr ratio (uACR) test [facility] [employer] Start: 1974 HIV screening HIV screen [facility] [employer] Start: 1971 Depression Screen Depression Screen [facility] [employer] Start: 1969 Diabetic foot examination Diabetic foot exam [facility] [employer] Start: 1969 Hemoglobin A1c measurement A1C test (Diabetic or Prediabetic) [facility] [employer] Start: 1969 Lipid panel Lipids [facility] [employer] End: 07-15-2024 Basic metabolic 2000 panel - Serum or Plasma Basic Metabolic Panel Lab Routine Daily for 1 Weeks starting 07/09/2024 until 07/15/2024, 3 completed [facility] T[facility] Comment on above: Daily for [address] arting 07/09/2024 until 07/15/2024, 3 completed Comprehensive metabo lic 1999 panel - Serum or Plasma [facility] Comprehensive metabo lic 1999 panel - Serum or Plasma [facility] Comprehensive metabo lic 1999 panel - Serum or Plasma [facility] Glucose [Mass/volume ] in Serum or Plasma POCT Glucose Point of Care Testing STAT As Needed until discontinued starting 07/06/2024 [facility] Comment on above: As Needed until disc ontinued starting 07/06/2024 Glucose [Mass/volume ] in Serum or Plasma POCT glucose Point of Care Testing Routine 4X Daily (AC & HS) until discontinued starting 07/07/2024, 18 completed [facility] Comment on above: 4X Daily (AC & HS) u ntil discontinued starting 07/07/2024, 18 completed Glucose [Mass/volume ] in Serum or Plasma POCT Glucose Point of Care Testing STAT As Needed until discontinued starting 07/10/2024 [facility] Comment on above: As Needed until disc ontinued starting 07/10/2024 End: 07-15-2024 Hemoglobin and Hematocrit Hemoglobin and Hematocrit Lab Routine Daily for 1 Weeks starting 07/09/2024 until 07/15/2024, 3 completed [facility] Comment on above: Daily for [address] arting 07/09/2024 until 07/15/2024, 3 completed MG Breast - bilatera l Diagnostic [facility] MG Breast - bilatera l Diagnostic [facility] End: 11-23-2024 MR Knee - right WO contrast [facility] Comment on above: 1 Occurrences starti ng 11/23/2024 until 11/23/2024 MR Knee - right WO contrast [facility] Oxygen therapy [[facility]ini [facility] Data Set] Initiate Oxygen Therapy Protocol Respiratory Care Routine As Needed until discontinued starting 07/08/2024 [facility] Comment on above: As Needed until disc ontinued starting 07/08/2024 Spirometry panel Incentive jesse metry Respiratory Care Routine Every 2hr while awake until discontinued starting 07/06/2024 [facility] Work Phone: Comment on above: Every 2hr while awak e until discontinued starting 07/06/2024 Spirometry panel Incentive jesse metry Respiratory Care Routine Every 2hr while awake until discontinued starting 07/08/2024 [facility] Comment on above: Every 2hr while awak e until discontinued starting 07/08/2024 US Axilla [facility] US Breast - left limited [facility] Payers Date Payer Category Payer Unknown [id number] 2024 Medicare 2023 Unknown 2022 Blue Cross Blue Shield [id number] 2019 Unknown [id number] 2015 Unknown [id number] 1959 Self-pay [id number] 1959 Unknown [id number] 2.16.840.1.135058.3.579.2.5 93 1959 Unknown [id number] 2.16.840.1.938759.3.579.2.5 93 1959 Unknown [id number] 2.16.840.1.271497.3.579.2.5 93 1959 Unknown [id number] 2.16.840.1.731842.3.579.2.5 93 1959 Unknown [id number] 2.16.840.1.194336.3.579.2.5 93 1959 Unknown [id number] 2.16.840.1.164411.3.579.2.5 93 1959 Unknown [id number] 2.16.840.1.527409.3.579.2.7 27 1959 Unknown [id number] 2.16.840.1.788463.3.579.2.9 3 1959 Unknown [id number] 2.16.840.1.709548.3.579.2.1 74 1959 Unknown [id number] 2.16.840.1.863434.3.579.2.1 96 1959 Unknown [id number] 2.16.840.1.825812.3.579.2.1 96 Medicare Medicare [id number] Unknown [id number] 2.16.840.1.178923.3.579.2.5 93 Unknown MMO [id number] Unknown [facility] PFFS B6YSCH [id number] Social History Date Type Detail Facility Start: 07-06-2024 Sex Assigned At [email or web address] Other Start: 1960 Sex Assigned At Female [facility] Tobacco smoking stat us NHIS Unknown if ever smoked [facility] Work Phone: Start: 06-04-2012 End: 06-25-2024 Sex Female (finding) [facility] Start: 07-06-2024 End: 10-11-2024 Tobacco smoking status NHIS Never smoked tobacco [facility] Start: 07-06-2024 Tobacco use and exposure Smokeless tobacco non-user [facility] Start: 07-09-2024 Alcoholic beverage intake Lifetime non-drinker (finding) [facility] Start: 07-06-2024 History of Social function [employer] Has the [employer], [employer], or water [employer] threatened to shut off services in your home in past 12Mo No [facility] (I/We) worried eladio er (my/our) food would run out before (I/we) got money to buy more. Never true [facility] In the past 12 month s, has lack of transportation kept you from medical appointments or from getting medications? No [facility] Start: 1960 Sex assigned at Not on file [facility] Medical Equipment Procedure Code Equipment Code Equipment Original Text Equipment Identifier Dates Screw Spnl L45mm Dia6.5mm Post Thoracolumbosacral Co Chrom - [id number] Start: 07-08-2024 Screw Spnl L40mm Dia6.5mm Post Thoracolumbosacral Co Chrom - [id number] Start: 07-08-2024 Set Scr Spnl L6m m Dia5.5mm Ti Brk Off Svetlana W/ Detach Cdh - [id number] Start: 07-08-2024 Evan Spnl L35mm D ia5.5mm Ant Post Thoracolumbosacral Ti - [id number] Start: 07-08-2024 Clinical Notes 08-04-2022 to [...] mass, left acute January 23, 2025 11:33am [facility] Work Phone: 1(974) 786-527905-21-2025 Evaluation note* Diagnosis Onset Date Resolution Status [...] ve visit noneactive October 11, 2024 10:26am [facility] Work Phone: 1(788) 471-434303-19-2025 History of Present illness Narrative* Bhavani Anderson [...] Rosales, PT - 07/10/2024 10:[address] [facility] INPATIENT PHYSICAL THERAPY EVALUATION [facility] 7K - [id number]-21/[id number] Discharge Recommendations: Continue [...] or urinary incontinence. 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 Detention Goals Time Frame for Activities Volunteer Goals : NA due to short ELOS Following session, patient left in safe position with all fall risk precautions in place. Pt in bedfollowing session, all needs and call light in reach, alarm on. * America Waters OTA - 07/10/2024 8:30 AM EDT [facility] 7 Occupational Therapy Daily Note Discharge Recommendations: Home with Home Health OT Equipment Recommendations: No Monitor need for LHAE. Time In: 0800 Time Out: 08 Timed Code Treatment Minutes: 28 Minutes Minutes: 28 Date: 07/10/2024 Patient Name: Carroll Fuentes, Gender: female Room: [address] [place] [address] : 1960 (64 y.o.) Referring Practitioner: Dank [...] or urinary incontinence. 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 Patient pleasant and cooperative throughout session. PAIN: 10/02: Vitals: Vitals not assessed per clinical judgement, see nursing flowsheet COGNITION: WFL ADL: Grooming: Modified Independent. Hair care seated in bedside chair Upper Extremity Dressing: Minimal Assistance. Carroll/doff house robe Lower Extremity Dressing: Minimal Assistance. With cafeteria assistant in order to carroll/doff hospital shorts with verbal/visual cues to complete, demonstrating good understanding. Footwear Management: Supervision, X 1, with verbal cues , and with increased time for completion. Utilized cafeteria assistant/sock aid in order to doff/carroll B socks [...] demonstrate appropriately throughout session. Functional Outcome Measures: [facility] Inpatient Daily Activity Raw Score: 19 [...] indep within home environment. Additional Goals?: No Detention Goals Time Frame for Activities Volunteer Goals : No LTGs d/t short estimated [...] Rosales, PT - 07/09/2024 2:49 PM EDT [facility] PHYSICAL THERAPY MISSED TREATMENT NOTE [facility] 7K Date: 07/09/2024 Patient Name: Carroll Fuentes : 1960 (64 y.o.) Gender: female REASON FOR MISSED TREATMENT: Missed Treat. Attempted x3 today. 1st attempt, pt with tech on BSC and then requesting to eat breakfast. 2nd attempt, OT with pt. 3rd attempt, lead case manager in room to complete assessment. * Angela Dawkins OT - 07/09/2024 1:44 PM EDT [facility] INPATIENT OCCUPATIONAL THERAPY [facility] 7K EVALUATION Discharge Recommendations: Continue to [...] or urinary incontinence. She was evaluated at [facility], she had an MRI of the lumbar [...] injury in the past year?: Yes Active Multiskill Operator: Yes Occupation: Retired VISION:Corrected HEARING: WFL COGNITION: [...] treatment: Good treatment tolerance Functional Outcome Measures: [facility] Inpatient Daily Activity Raw Score: 17 [...] indep within home environment. Additional Goals?: No Detention Goals Time Frame for Activities Volunteer Goals : No LTGs d/t short estimated [...] pain 6/10 at this time, medicated by CIRCUS AGENT 1840 pt resting, resp easy. VSS 1850 [...] this time. Pt transported to [facility] in stable condition * Kusum Conte RN [...] Fuentes Age: 64 y.o. Sex: female Language: Tajik Latter-Day: Holiness Intractable back pain Date: 07/07/2024 Total Time Calculated: (P) 14 min Spiritual Assessment began in [facility] 7K Referral/Consult From: (P) Nurse Encounter [...] and how she loves everything about the jain. Patient finds peace and hope in her liliane as a episcopalian and desires to have sacrament of the sick by a potato inspector, before her surgery tomorrow afternoon. I told the patient that I will let the spiritual care team know. Offered patient words of encouragement, quoted Scripture, and prayed with the patient, at her request. Patient expressed gratitude. Made patient aware of supervisor machine setter availability and support. Patient Interventions include: Facilitated expression of thoughts and feelings, Explored spiritual coping/struggle/distress, Affirmed coping skills/support systems, and Provided sacramental/religiousritual Family/Friends Interventions include: No family/friends present Patient Plan of Care: Contact [place] community living specialist for support or sacramental needs Family/Friends Plan of Care: No family/friends present [facility] Discharge instructions* Discharge Instructions* Bhavani [...] All vegetables, especially asparagus, [place] sprouts, broccoli, [place] sprouts, cabbage, carrots, cauliflower, celery, corn, greens, [...] taking more than one drug. This includes [id number] medication and herb or dietary supplements. Plan [...] and possible side effects [facility] NotePROCEDURE: XR LUMBAR SPINE 1 VW [...] loss of vertebral body height is seen. [id number] NotePROCEDURE: XR LUMBAR SPINE 1 VW CLINICAL [...] Signed by: Sivakumar Betts MD 07/08/24 [facility] Evaluation note* Diagnosis Onset Date [...] medicine non eactive July 04, 2024 2:57pm [facility] Work Phone: 1(661) 373-611803-03-2025 Evaluation note* Diagnosis Onset Date Resolution Status [...] h hyperglycemia acute July 04, 2024 2:57pm [facility] Work Phone: 1(315) 286-106903-03-2025 Evaluation note* Diagnosis Onset Date Resolution Status [...] 2024 2:57pm Acute blood loss anemia acute [facility] 2024 9:25am Central stenosis of spinal canal acu te July 13, 2024 9:25am Herniated intervertebral dis c of lumbar spine acute July 13, 2024 9:25am Hypotension due to hypovolemia acute July 13, 2024 9:25am Type 2 diabetes mellitus wit h hyperglycemia acute July 13, 2024 9:25am Acute blood loss anemia acute [facility] 2024 10:08am Adverse effect of mixed sedatives acute July 18, 2024 10:08am Central stenosis of spinal canal acu te July 18, 2024 10:08am Herniated intervertebral dis c of lumbar spine acute July 18, 2024 10:08am Hypotension due to hypovolemia acute July 18, 2024 10:08am Type 2 diabetes mellitus wit h hyperglycemia acute July 18, 2024 10:08am Visual hallucinations acute Jun 10:08am [facility] Work Phone: 1(481) 355-499503-03-2025 Evaluation note* Diagnosis Onset Date Resolution Status [...] 10:08am Visual hallucinations acute Jun 2024 10:08am [facility] Work Phone: [phone]) [phone] Evaluation note* Encounter Date Diagnosis Assessment Notes Treatment Notes Treatment Clinical Notes May, Autoimmune thyroiditis (ICD-10 - E06.3) May, Elevated cholesterol (ICD-10 - E78.00) May, Type 2 diabetes mellitus with hyperglycemia, without long-term current use of insulin (ICD-10 - E11.65) May, Primary hypertension (ICD-10 - I10) May, Intractable chronic migraine without aura and without status migrainosus (ICD-10 - G43.719) [email or web address] Other 01-15-2024 Evaluation note* Encounter Date Diagnosis Assessment Notes Treatment Notes Treatment Clinical Notes Apr, Intractable chronic migraine without aura and without status migrainosus (ICD-10 - G43.719) [email or web address] Other 01-08-2024 Evaluation note* Encounter Date Diagnosis Assessment Notes Treatment Notes Treatment Clinical Notes Apr, Intractable chronic migraine without aura and without status migrainosus (ICD-10 - G43.719) [email or web address] Other 01-05-2024 Evaluation note* Encounter Date Diagnosis [...] Begin Amitriptyline Stop Tizanidine. MRI cervical spine [email or web address] Other 08-31-2023 Evaluation note* Encounter Date Diagnosis Assessment Notes Treatment Notes Treatment Clinical Notes Nov, Primary hypertension (ICD-10 - I10) [email or web address] Other 08-28-2023 Evaluation note* Encounter Date Diagnosis Assessment Notes Treatment Notes Treatment Clinical Notes Nov, Adverse effect of smooth muscle relaxant, subsequent encounter (ICD-10 - T44.3X5D) Avoid combination of Klonopin and Zanaflex when scheduled care transition manager. May want to cut back on [...] Pain in left shoulder (ICD-10 - M25.512) [email or web address] Other 06-30-2023 Evaluation note* Encounter Date Diagnosis Assessment Notes Treatment Notes Treatment Clinical Notes Sep, Type 2 diabetes mellitus with hyperglycemia, without long-term current use of insulin (ICD-10 - E11.65) [email or web address] Other 06-05-2023 Evaluation note* Encounter Date Diagnosis Assessment Notes Treatment Notes Treatment Clinical Notes Sep, Candidiasis, intertriginous (ICD-10 - B37.2) [email or web address] Other 04-12-2023 Evaluation note* Encounter Date Diagnosis [...] use, the patient reduces the risk for [place], CVA, HTN, cardiac dysrhythmias and sudden cardiac [...] Jul, Other specified hypothyroidism (ICD-10 - E03.8) [email or web address] Other Evaluation noteNo InformationNort [employer] Other Evaluation noteNo assessment information available [facility] Work Phone: Evaluation note* Diagnosis Onset Date Resolution Status Cervical pain acute Cervical spondylosis acute Cervical pain acute Cervical spondylosis acute Painful lumpy right breast a cute [facility] Work Phone: Evaluchlrv note* Diagnosis Intractable back pain- Primary Backache, unspecified Spinal stenosis of lumbar region with neurogenic claudication Spinal stenosis, lumbar region, with neurogenic claudication Primary hypertension Unspecified essential hypertension Type 2 diabetes mellitus, without long-term current use of insulin ([facility]) documented in this encounter [facility] note* Diagnosis Osteoarthritis of right knee, unspecified osteoarthritis type documented in this encounter [facility]. comNemours Foundation general Narrative - Reported* Type Description Date [...] CATHETERIZATION 2016 Hospitalization History SEE SURIGCAL HX [email or web address] Other Hisshmm general Narrative - Reported* Type Description Date [...] arthroscopy 10/2022 Hospitalization History SEE SURIGCAL HX [email or web address] Other Reason for referral (narrative)* Reason Evaluation of right knee pain Diagnosis 1 Strain of right knee , subsequent encounter (S87.845J) Referral Organization [facility] [employer] [facility] bhupinder Referring Provider First Name Robert Referring Provider Last Name Hamilton Referring Provider Specialty Internal Nm yoni Referred Provider Rishi Parker Jr Referred Provider Specialty Orthopedic S urgery Referral Priority Routine [email or web address] Other Reason for referral (narrative)* Reason Referral for neck pa in Diagnosis 1 Cervicalgia (M54.2) Diagnosis 2 Cervical spondylosis (M47.812) Referral Organization [facility] [employer] [facility] bhupinder Referring Provider First Name Robert Referring Provider Last Name Hamilton Referring Provider Specialty Internal Me yoni Referred Organization [facility] Referred Address [address], [place],[address] Referred Provider Specialty Pain Medicin e Referral Priority Routine General Notes Patient has hx of ce rvical discectomy and fusion and presented w/ persistent neck pain, which radiated upwards causing a headache. She is being referred for treatment with the pain clinic. Clinical Notes Include MRI [email or web address] Other Reason for referral (narrative)No reason for referral information [facility]Tr[facility] Work Phone: Reason for visit Narrative* Auth/Cert Specialty Diagnoses / Procedures Referred By Jass adams Referred To Contact Diagnoses Intractable back pain large disc herniation Kole, Jose Meier MD [address] [place] [address] Phone: tel: fax: [facility] [address] [place] [address] Referral ID Status Reason Start Date Expiration Date Visits Re quested Visits Authorized [id number] 1 1 Boom[facility]angReason for visit Narrative* Imaging (Routine) - Closed Specialty Diagnoses / Procedures Referred By Contac t Referred To Contact Radiology Diagnoses Osteoarthritis of right knee, unspecified osteoarthritis type Procedures MRI KNEE RIGHT WO CONTRAST Tomás Helton, DO [address] [place] [address] Phone: tel: fax: Referral ID Status Reason Start Date Expiration Date Visits Re quested Visits Authorized [id number] Closed 11/14/2024 11/14/2025 1 1 [facility] Summary Purpose Family History No Family History [...] Documents on File Type Date Recorded 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 Expl 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 ACP-Advance Directive 07/13/2024 10:35 PM [...] section and content) DATE CREATED AUTHOR 06/20/2018 [facility] DATE CREATED AUTHOR AUTHOR'S ORGANIZ ATION 07/04/2018 [facility] DATE CREATED AUTHOR AUTHOR'S ORGANIZ ATION 09/18/2020 [facility] DATE CREATED AUTHOR AUTHOR'S ORGANIZ ATION 08/27/2022 [facility] DATE CREATED AUTHOR AUTHOR'S ORGANIZ ATION 06/23/2024 [facility] DATE CREATED AUTHOR AUTHOR'S ORGANIZ ATION 08/10/2024 [facility] DATE CREATED AUTHOR AUTHOR'S ORGANIZ ATION 12/03/2024 [facility] DATE CREATED AUTHOR AUTHOR'S ORGANIZ ATION 02/02/2025 [facility] REASON FOR VISIT (unrecogniz ed section and [...] July 04, 2024 End: July 04, 2024 Beverage Inspection Machine Tender Relationship Specialty Start Date End Date Robert Villasenor DO [address] [facility] [place] [id number] PCP - General Internal Medicine 07/06/24 Team [...] July 25, 2024 End: July 25, 2024 Beverage Inspection Machine Tender Relationship Specialty Start Date End Date Robert Villasenor DO [address] [place] [id number] PCP - General Internal Medicine 07/06/24 Team [...] for injection by adding 1 mL of check processing clerk-supplied sterile diluent or sterile water for injection [...] BE BASED ON THE PRIMARY CLINICAL RECORDS. [employer] [facility]. provides no warranty or guarantee of the accuracy or completeness of information in this document.
[2025-02-06 14:05] LABS: INR 1.07; Partial Thromboplastin Time 25.9 sec (22.3-36.2); Prothrombin Time 11.3 sec (9.0-11.6)
[2025-02-06 14:30] LABS: Hematocrit 38.7 % (36.0-48.0); Hemoglobin 12.6 g/dL (12.0-16.0); Immature Granulocytes Abs Auto 0.03 10^3/uL (0.00-0.03); Immature Granulocytes Pct Auto 0.4 % (0.0-0.5); Lymphocytes Absolute Auto 2.2 10^3/uL (1.2-3.8); Mean Corpuscular HGB Conc 32.6 g/dL (29.9-35.2); Mean Corpuscular Hemoglobin 28.4 pg (26.7-34.0); Mean Corpuscular Volume 87.2 fL (81.0-99.0); Platelet Count 227 10^3/uL (150-450); Red Blood Count 4.44 10^6/uL (4.20-5.40); White Blood Count 7.1 10^3/uL (4.0-11.0)
[2025-02-06 14:56] LABS: Anion Gap 14.2; Blood Urea Nitrogen 23.0 mg/dL (7.0-18.0); Calcium 9.0 mg/dL (8.5-10.1); Carbon Dioxide 27.3 mmol/L (21.0-32.0); Chloride 105 mmol/L (98-107); Estimated GFR (African America 44 (>=60 mL/min/1.73m^2); Estimated GFR (Non-African Ame 36 (>=60 mL/min/1.73m^2); Glucose 83 mg/dL (74-106); Potassium 4.5 mmol/L (3.5-5.1); Sodium 142 mmol/L (136-145)
== END 2025-02-06 11:39 | disposition home or self-care (01) ==
PROVIDERS: PCP Internal Medicine; Visit Provider Orthopaedic Surgery Orthopaedic Surgery of the Spine
DX: M54.16 Radiculopathy, lumbar region (principal)
CPT/HCPCS: 36415; 80048; 83036; 85025; 85610; 85730; 87081

== ENCOUNTER 2025-02-11 11:43 | Day surgery (SDC) | payer OTHER, SELFPAY ==
--- OUTSIDE RECORDS SUMMARY | 2025-02-11 11:48 | XMS_ITS | CCD ---
Author Organization [facility] Informat ion Partnership [facility] Care Team Providers Care Chinese Herbalist Name Role Phone JENNA GARSIA Admitting Unavailable [...] BALL, DR NINO Admitting Unavailable BALL, DR NNIO Attending Unavailable BALL, DR NINO Consulting Unavailable [...] 09-30-19 11 [facility] Repository (2 sources) HYDROmorphone; Translations: [HYDROMORPHONE (BULK)] Drug Allergy 08-17-19 17 [facility] Repository (20 sources) Latex; Translations: [LATEX] Propensity to adverse reactions to drug (disorder) 09-30-19 11 Hives [facility] Repository (2 sources) Meperidine; Translations: [MEPERIDINE (PF)] Drug Allergy 09-30-19 11 [facility] Repository (2 sources) Povidone-Iodine; Translations: [POVIDONE-IODINE] Drug Allergy 10-21-19 17 [facility] Repository (2 sources) SUMAtriptan; Translations: [SUMATRIPTAN SUCCINATE] Drug Allergy 09-30-19 11 [facility] Repository (2 sources) INFLUENZA VACCINE TRI-SP 09-10; Translations: [INFLUENZA VACCINE TRI-SP 09-10] Propensity to adverse reactions to drug (disorder) 09-30-19 11 [facility] Repository (3 sources) DHE; Translations: [DHE] Propensity to adverse reactions to drug (disorder) 10-24-19 13 [facility] Repository (20 sources) HYDROmorphone Drug Allergy 12-20-19 24 Unknown, Unknown Reaction [facility] (20 sources) Iodine; Translations: [iodine] Drug Allergy 10-24-19 13 Unknown, Unknown Reaction [facility] Repository (20 sources) Meperidine Drug Allergy 12-20-19 24 Unknown, Unknown Reaction [facility] (20 sources) SUMAtriptan Drug Allergy 12-20-19 24 Hives [facility] (20 sources) Fluad Drug allergy 12-20-19 24 Unknown, Unknown Reaction [facility] (19 sources) DHEA Drug allergy 07-07-19 25 Anaphylaxis [facility] Other (2 sources) HYDROmorphone; Translations: [Dilaudid] Drug Allergy 10-24-19 13 [facility] Repository (1 source) Meperidine Drug Allergy 10-24-19 13 [facility] Repository (2 sources) Plasmin; Translations: [Imitrex] Drug Allergy 10-24-19 13 [facility] Repository (12 sources) influenza A virus (H1N1) antigen / influenza A virus (H3N2) antigen / influenza B virus antigen Drug Allergy 11-21-19 14 Comment:FLU VACCINE [facility] Other (12 sources) Contraindication to Flu Injection Propensity to adverse reactions 03-07-20 14 Comment:advers e rxn/side effects [facility] Other (3 sources) patient allergy list reviewed by nurse or physicia Propensity to adverse reactions 12-22-19 14 Comment:Done [facility] Other (9 sources) Calcium Drug Allergy 12-20-19 24 Unknown Reaction [facility] (9 sources) Calcium Carbonate Drug Allergy 12-20-19 24 Unknown Reaction [facility] (9 sources) prasterone (DHEA) Allergy to substance 12-20-19 24 Unknown Reaction [facility] (9 sources) Fluad Quadrivalent Allergy to substance 04-29-19 Comment:FLU VACCINE [facility] Comment on above: Onset Date: 11/21/19 14 (1 source) Meperidine; Translations: [Demerol HCl] Drug Allergy [facility] Repository (1 source) flu vaccines; Translations: [flu vaccines] Propensity to adverse reactions (disorder) [facility] Repository (2 sources) Iodine Strong Propensity to adverse reactions to drug 07-07-19 [facility]) Meperidine Drug Allergy 07-07-19 25 Other (See Comments) [employer] [facility] Medications Current Medications Medication [...] for injection by adding 1 mL of exhaust 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 10 MG 1 tablet Orally PRN headache, [...] 14, 2024 7:50pm 20 ml albumin human, halfway 250 mg/ml injection (1 source) Human Serum [...] Start: 07-08-2024 take 10 mg rectal ro telida once daily as needed for constipation 10 [...] Post-op docusate sodium 50 mg / sennosides, halfway 8.6 mg oral tablet (1 source) Start: [...] 20 mL/lumen, Post-op [place] [address] mg powder for oral suspension (1 source) [...] Isreal Garcia DO 12/01/24 Final result Normal [facility] Basophils Auto (Bld) [#/Vol] Ordered By: Robert Villasenor on 10-13-2024 Basophils (Bld) [#/Vol] 0.0 10 3/uL 0.0-0.1 [facility] Basophils/100 WBC Auto (Bld) Ordered By: Robert Villasenor on 10-13-2024 Basophils/100 WBC (Bld) 0.6 % 0.2-2.0 [facility] Cholesterol in LDL Calc [Mas s/Vol]Ordered By: Robert Villasenor on 10-13-2024 Cholesterol in LDL [Mass/Vol] 77.0 mg/dL [facility] Comment on above: <100 mg/dl [id number] 0-129 mg/dl NEAR OR ABOVE [id number] mg/dl BORDERLINE [id number] mg/dl HIGH>190 mg/dl VERY HIGH Cholesterol in VLDL Calc [Ma ss/Vol]Ordered By: Robert Villasenor on 10-13-2024 Cholesterol in VLDL [Mass/Vol] 30.8 mg/dL [facility] Eosinophils/100 WBC Auto (Bl d)Ordered By: Robert Villasenor on 10-13-2024 Eosinophils/100 WBC (Bld) 4.5 % 0.9-7.0 [facility] Erythrocyte distribution wid th Auto (RBC) [Ratio]Ordered By: Robert Villasenor on 10-13-2024 Erythrocyte distribution width (RBC) [Ratio] 12.6 % 11.0-15.0 [facility] Estimated glomerular filtrat ion rate (GFR) non- AmericanOrdered By: Robert Villasenor on 10-13-2024 GFR/1.73 sq M.predicted among non-blacks MDRD (S/P/Bld) [Vol rate/Area] 50 mL/min/{1.73_m2} Low >=60 mL/min/1.73 m 2 [facility] Globulin Calc (S) [Mass/Vol] Ordered By: Robert Villasenor on 10-13-2024 Globulin (S) [Mass/Vol] 3.6 g/dL [facility] Hematocrit Auto (Bld) [Volum e fraction]Ordered By: Robert Villasenor on 10-13-2024 Hematocrit (Bld) [Volume fraction] 37.7 % 36.0-48.0 [facility] Hemoglobin [Mass/volume] in BloodOrdered By: Robert Villasenor on 10-13-2024 Hemoglobin (Bld) [Mass/Vol] 12.0 g/dL 12.0-16.0 [facility] Laboratory - Chemistry and C hemistry - challengeOrdered By: Robert Villasenor on 10-13-2024 Albumin [Mass/Vol] 3.6 g/dL 3.4-5.0 [facility] ALP [Catalytic activity/Vol] 91 U/L 46-116 [facility] ALT [Catalytic activity/Vol] 29 U/L 14-59 [facility] AST [Catalytic activity/Vol] 23 U/L 15-37 [facility] Bilirubin [Mass/Vol] 0.6 mg/dL 0.2-1.0 [facility] Calcium [Mass/Vol] 8.9 mg/dL 8.5-10.1 [facility] Chloride [Moles/Vol] 103 mmol/L 98-107 [facility] Cholesterol [Mass/Vol] 161 mg/dL <=200 [facility] Cholesterol in HDL [Mass/Vol] 54 mg/dL 40-60 [facility] Comment on above: > or =60 mg/dl - LOW CARDIOVASCULAR RISK<40 mg/dl - HIGH CARDIOVASCULAR RISK CO2 [Moles/Vol] 26.8 mmol/L 21.0-32.0 [facility] Creatinine [Mass/Vol] 1.09 mg/dL High 0.55-1.02 [facility] GFR/1.73 sq M.predicted MDRD (S/P/Bld) [Vol rate/Area] mL/min/{1.73_m2} >=60 mL/min/1.73 m 2 [facility] Glucose [Mass/Vol] 75 mg/dL 74-106 [facility] Potassium [Moles/Vol] 4.3 mmol/L 3.5-5.1 [facility] Protein [Mass/Vol] 7.2 g/dL 6.4-8.2 [facility] Sodium [Moles/Vol] 141 mmol/L 136-145 [facility] Triglyceride [Mass/Vol] 154 mg/dL High <=150 [facility] Urea nitrogen [Mass/Vol] 28.0 mg/dL High 7.0-18.0 [facility] Urea nitrogen/Creatinine [Mass ratio] 25.7 mg/mg [facility] Laboratory - Hematology and Cell countsOrdered By: Robert Villasenor on 10-13-2024 Immature granulocytes/100 WBC (Bld) 0.3 % 0.0-0.5 [facility] Leukocytes [#/volume] correc chip for nucleated erythrocytes in Blood by Automated counOrdered By: Robert Villasenor on 10-13-2024 WBC corrected for nucl RBC Auto (Bld) [#/Vol] 6.4 10 3/uL 4.0-11.0 [facility] Lymphocytes Auto (Bld) [#/Vo l]Ordered By: Robert Villasenor on 10-13-2024 Lymphocytes (Bld) [#/Vol] 2.7 10 3/uL 1.2-3.8 [facility] Lymphocytes/100 WBC Auto (Bl d)Ordered By: Robert Villasenor on 10-13-2024 Lymphocytes/100 WBC (Bld) 42.6 % 20.5-60.0 [facility] MCH Auto (RBC) [Entitic mass ]Ordered By: Robert Villasenor on 10-13-2024 MCH (RBC) [Entitic mass] 26.1 pg Low 26.7-34.0 [facility] MCHC Auto (RBC) [Mass/Vol]Or dered By: Robert Villasenor on 10-13-2024 MCHC (RBC) [Mass/Vol] 31.8 g/dL 29.9-35.2 [facility] MCV Auto (RBC) [Entitic vol] Ordered By: Robert Villasenor on 10-13-2024 MCV (RBC) [Entitic vol] 82.0 fL 81.0-99.0 [facility] Microalbumin [Mass/volume] i n UrineOrdered By: Robert Villasenor on 10-13-2024 Albumin DL <= 20 mg/L (U) [Mass/Vol] mg/dL <=30.0 [facility] Monocytes Auto (Bld) [#/Vol] Ordered By: Robert Villasenor on 10-13-2024 Monocytes (Bld) [#/Vol] 0.5 10 3/uL 0.3-0.8 [facility] Monocytes/100 WBC Auto (Bld) Ordered By: Robert Villasenor on 10-13-2024 Monocytes/100 WBC (Bld) 8.5 % 1.7-12.0 [facility] Neutrophils Auto (Bld) [#/Vo l]Ordered By: Robert Villasenor on 10-13-2024 Neutrophils (Bld) [#/Vol] 2.8 10 3/uL 1.4-6.5 [facility] Neutrophils/100 WBC Auto (Bl d)Ordered By: Robert Villasenor on 10-13-2024 Neutrophils/100 WBC (Bld) 43.5 % 43.0-75.0 [facility] No Panel InformationOrdered By: Robert Villasenor on 10-13-2024 Eosinophils # (Auto) 0.3 10 3/uL 0.0-0.7 [facility] Immature Granulocyte # (Auto) 0.02 10 3/uL 0.00-0.03 [facility] Urine Random Creatinine 72.31 mg/dL 20.00-300.0 0 [facility] Platelet mean volume Auto (B ld) [Entitic vol]Ordered By: Robert Villasenor on 10-13-2024 Platelet mean volume (Bld) [Entitic vol] 9.8 fL 9.5-13.5 [facility] Platelets Auto (Bld) [#/Vol] Ordered By: Robert Villasenor on 10-13-2024 Platelets (Bld) [#/Vol] 227 10 3/uL 150-450 [facility] RBC Auto (Bld) [#/Vol]Ordere d By: Robert Villasenor on 10-13-2024 RBC (Bld) [#/Vol] 4.60 10 6/uL 4.20-5.[address] [facility] Serum or plasma albumin/glob ulin mass ratioOrdered By: Robert Villasenor on 10-13-2024 Albumin/Globulin [Mass ratio] 1.0 {ratio} [facility] Serum or plasma anion gap de terminationOrdered By: Robert Villasenor on 10-13-2024 Anion gap [Moles/Vol] 15.5 mmol/L [facility] Serum or plasma total choles terol/high density lipoprotein (HDL) cholesterol mass ratOrdered By: Robert Villasenor on 10-13-2024 Cholesterol.total/Chol esterol in HDL [Mass ratio] 3.0 {ratio} [facility] Comment on above: 3.3 - 4.4 LOW RISK4. 4 - 7.1 AVERAGE RISK7.1 - 11.0 MODERATE RISK>11.0 HIGH RISK Basophils Auto (Bld) [#/Vol] on 09-21-2024 Basophils (Bld) [#/Vol] 0.0 10 3/uL 0.0-0.1 [facility] Basophils/100 WBC Auto (Bld) on 09-21-2024 Basophils/100 WBC (Bld) 0.6 % 0.2-2.0 [facility] Cholesterol in LDL Calc [Mas s/Vol]on 09-21-2024 Cholesterol in LDL [Mass/Vol] 57.0 mg/dL [facility] Comment on above: <100 mg/dl [id number] 0-129 mg/dl NEAR OR ABOVE [id number] mg/dl BORDERLINE [id number] mg/dl HIGH>190 mg/dl VERY HIGH Cholesterol in VLDL Calc [Ma ss/Vol]on 09-21-2024 Cholesterol in VLDL [Mass/Vol] 37.6 mg/dL [facility] Eosinophils/100 WBC Auto (Bl d)on 09-21-2024 Eosinophils/100 WBC (Bld) 14.7 % High 0.9-7.0 [facility] Erythrocyte distribution wid th Auto (RBC) [Ratio]on 09-21-2024 Erythrocyte distribution width (RBC) [Ratio] 11.9 % 11.0-15.0 [facility] Estimated glomerular filtrat ion rate (GFR) non- Americanon 09-21-2024 GFR/1.73 sq M.predicted among non-blacks MDRD (S/P/Bld) [Vol rate/Area] 54 mL/min/{1.73_m2} Low >=60 mL/min/1.73 m 2 [facility] Globulin Calc (S) [Mass/Vol] on 09-21-2024 Globulin (S) [Mass/Vol] 3.7 g/dL [facility] Hematocrit Auto (Bld) [Volum e fraction]on 09-21-2024 Hematocrit (Bld) [Volume fraction] 35.4 % Low 36.0-48.0 [facility] Hemoglobin [Mass/volume] in Bloodon 09-21-2024 Hemoglobin (Bld) [Mass/Vol] 11.0 g/dL Low 12.0-16.0 [facility] Laboratory - Chemistry and C hemistry - challengeon 09-21-2024 Albumin [Mass/Vol] 3.2 g/dL Low 3.4-5.0 [facility] ALP [Catalytic activity/Vol] 89 U/L 46-116 [facility] ALT [Catalytic activity/Vol] 29 U/L 14-59 [facility] AST [Catalytic activity/Vol] 22 U/L 15-37 [facility] Bilirubin [Mass/Vol] 0.4 mg/dL 0.2-1.0 [facility] Calcium [Mass/Vol] 9.2 mg/dL 8.5-10.1 [facility] Chloride [Moles/Vol] 105 mmol/L 98-107 [facility] Cholesterol [Mass/Vol] 136 mg/dL <=200 [facility] Cholesterol in HDL [Mass/Vol] 42 mg/dL 40-60 [facility] Comment on above: > or =60 mg/dl - LOW CARDIOVASCULAR RISK<40 mg/dl - HIGH CARDIOVASCULAR RISK CO2 [Moles/Vol] 28.3 mmol/L 21.0-32.0 [facility] Creatinine [Mass/Vol] 1.02 mg/dL 0.55-1.02 [facility] GFR/1.73 sq M.predicted MDRD (S/P/Bld) [Vol rate/Area] mL/min/{1.73_m2} >=60 mL/min/1.73 m 2 [facility] Glucose [Mass/Vol] 119 mg/dL High 74-106 [facility] Potassium [Moles/Vol] 5.3 mmol/L High 3.5-5.1 [facility] Protein [Mass/Vol] 6.9 g/dL 6.4-8.2 [facility] Sodium [Moles/Vol] 143 mmol/L 136-145 [facility] Triglyceride [Mass/Vol] 188 mg/dL High <=150 [facility] TSH Qn 0.633 m[IU]/L 0.358-3.740 [facility] Urea nitrogen [Mass/Vol] 31.0 mg/dL High 7.0-18.0 [facility] Urea nitrogen/Creatinine [Mass ratio] 30.4 mg/mg [facility] Laboratory - Hematology and Cell countson 09-21-2024 Immature granulocytes/100 WBC (Bld) 0.2 % 0.0-0.5 [facility] Leukocytes [#/volume] correc chip for nucleated erythrocytes in Blood by Automated counon 09-21-2024 WBC corrected for nucl RBC Auto (Bld) [#/Vol] 5.3 10 3/uL 4.0-11.0 [facility] Lymphocytes Auto (Bld) [#/Vo l]on 09-21-2024 Lymphocytes (Bld) [#/Vol] 2.1 10 3/uL 1.2-3.8 [facility] Lymphocytes/100 WBC Auto (Bl d)on 09-21-2024 Lymphocytes/100 WBC (Bld) 39.2 % 20.5-60.0 [facility] MCH Auto (RBC) [Entitic mass ]on 09-21-2024 MCH (RBC) [Entitic mass] 26.1 pg Low 26.7-34.0 [facility] MCHC Auto (RBC) [Mass/Vol]on 09-21-2024 MCHC (RBC) [Mass/Vol] 31.1 g/dL 29.9-35.2 [facility] MCV Auto (RBC) [Entitic vol] on 09-21-2024 MCV (RBC) [Entitic vol] 83.9 fL 81.0-99.0 [facility] Monocytes Auto (Bld) [#/Vol] on 09-21-2024 Monocytes (Bld) [#/Vol] 0.4 10 3/uL 0.3-0.8 [facility] Monocytes/100 WBC Auto (Bld) on 09-21-2024 Monocytes/100 WBC (Bld) 8.4 % 1.7-12.0 [facility] Neutrophils Auto (Bld) [#/Vo l]on 09-21-2024 Neutrophils (Bld) [#/Vol] 1.9 10 3/uL 1.4-6.5 [facility] Neutrophils/100 WBC Auto (Bl d)on 09-21-2024 Neutrophils/100 WBC (Bld) 36.9 % Low 43.0-75.0 [facility] No Panel Informationon 09-21 Eosinophils # (Auto) 0.8 10 3/uL High 0.0-0.7 [facility] Immature Granulocyte # (Auto) 0.01 10 3/uL 0.00-0.03 [facility] Platelet mean volume Auto (B ld) [Entitic vol]on 09-21-2024 Platelet mean volume (Bld) [Entitic vol] 9.9 fL 9.5-13.5 [facility] Platelets Auto (Bld) [#/Vol] on 09-21-2024 Platelets (Bld) [#/Vol] 218 10 3/uL 150-450 [facility] RBC Auto (Bld) [#/Vol]on RBC (Bld) [#/Vol] 4.22 10 6/uL 4.20-5.[address] [facility] Serum or plasma albumin/glob ulin mass ratioon 09-21-2024 Albumin/Globulin [Mass ratio] 0.9 {ratio} [facility] Serum or plasma anion gap de terminationon 09-21-2024 Anion gap [Moles/Vol] 15.0 [facility] Serum or plasma total choles terol/high density lipoprotein (HDL) cholesterol mass desiree 09-21-2024 Cholesterol.total/Chol esterol in HDL [Mass ratio] 3.2 {ratio} [facility] Comment on above: 3.3 - 4.4 LOW RISK4. 4 - 7.1 AVERAGE RISK7.1 - 11.0 MODERATE RISK>11.0 HIGH RISK Glucose mean value [Mass/vol ume] in Blood Estimated from glycated hemoglobinon 09-14-2024 Average glucose Estimated from glycated hemoglobin (Bld) [Mass/Vol] 146 mg/dL [facility] Hemoglobin A1c percentageon 09-14-2024 HbA1c (Bld) [Mass fraction] 6.7 % High 4.5-6.2 [facility] Comment on above: ADA RECOMMENDED LIMI T 4.0 - 6.0ADA THERAPEUTIC TARGET < 7.0ACTION SUGGESTED> 7.0 Microalbumin [Mass/volume] i n Urineon 09-14-2024 Albumin DL <= 20 mg/L (U) [Mass/Vol] 3.2 mg/dL <=30.0 [facility] No Panel Informationon 09-14 Urine Random Creatinine 260.08 mg/dL 20.00-300.0 0 [facility] Urine microalbumin/creatinin e mass ratioon 09-14-2024 Albumin/Creatinine DL <= 20 mg/L (U) [Mass ratio] 12.3 mg/g 0.0-29.9 [facility] Comment on above: NO MICROALBUMINURIA 0-29 MG/GCLINICAL MICROALBUMINURIA 30-300 MG/GMACROALBUMINURIA >300 MG/G Basophils Auto (Bld) [#/Vol] on 07-18-2024 Basophils (Bld) [#/Vol] Automated basophil count 0.0-0.1 [facility] Basophils/100 WBC Auto (Bld) on 07-18-2024 Basophils/100 WBC (Bld) Automated basophil % 0.2-2.0 [facility] Eosinophils/100 WBC Auto (Bl d)on 07-18-2024 Eosinophils/100 WBC (Bld) Automated eosinophil % 0.9-7.0 [facility] Erythrocyte distribution wid th Auto (RBC) [Ratio]on 07-18-2024 Erythrocyte distribution width (RBC) [Ratio] Erythrocyte distribution width [Ratio] by Automated count 11.0-15.0 [facility] Hematocrit Auto (Bld) [Volum e fraction]on 07-18-2024 Hematocrit (Bld) [Volume fraction] Hematocrit [Volume Fraction] of Blood by Automated count Low 36.0-48.0 [facility] Hemoglobin [Mass/volume] in Bloodon 07-18-2024 Hemoglobin (Bld) [Mass/Vol] Hemoglobin [Mass/volume] in Blood Low 12.0-16.0 [facility] Laboratory - Hematology and Cell countson 07-18-2024 Immature granulocytes/100 WBC (Bld) 0.6 % High 0.0-0.5 [facility] Leukocytes [#/volume] correc chip for nucleated erythrocytes in Blood by Automated counon 07-18-2024 WBC corrected for nucl RBC Auto (Bld) [#/Vol] Leukocytes [#/volume] corrected for nucleated erythrocytes in Blood by Automated coun 4.0-11.0 [facility] Lymphocytes Auto (Bld) [#/Vo l]on 07-18-2024 Lymphocytes (Bld) [#/Vol] Lymphocytes [#/volume] in Blood by Automated count 1.2-3.8 [facility] Lymphocytes/100 WBC Auto (Bl d)on 07-18-2024 Lymphocytes/100 WBC (Bld) Lymphocytes/100 leukocytes in Blood by Automated count 20.5-60.0 [facility] MCH Auto (RBC) [Entitic mass ]on 07-18-2024 MCH (RBC) [Entitic mass] MCH [Entitic mass] by Automated count 26.7-34.0 [facility] MCHC Auto (RBC) [Mass/Vol]on 07-18-2024 MCHC (RBC) [Mass/Vol] MCHC [Mass/volume] by Automated count 29.9-35.2 [facility] MCV Auto (RBC) [Entitic vol] on 07-18-2024 MCV (RBC) [Entitic vol] MCV [Entitic volume] by Automated count 81.0-99.0 [facility] Monocytes Auto (Bld) [#/Vol] on 07-18-2024 Monocytes (Bld) [#/Vol] Automated blood monocyte count 0.3-0.8 [facility] Monocytes/100 WBC Auto (Bld) on 07-18-2024 Monocytes/100 WBC (Bld) Automated monocyte % 1.7-12.0 [facility] Neutrophils Auto (Bld) [#/Vo l]on 07-18-2024 Neutrophils (Bld) [#/Vol] Neutrophils [#/volume] in Blood by Automated count 1.4-6.5 [facility] Neutrophils/100 WBC Auto (Bl d)on 07-18-2024 Neutrophils/100 WBC (Bld) Automated neutrophil % 43.0-75.0 [facility] No Panel Informationon 07-18 Eosinophils # (Auto) 0.3 10 3/uL 0.0-0.7 [facility] Immature Granulocyte # (Auto) 0.03 10 3/uL 0.00-0.03 [facility] Platelet mean volume Auto (B ld) [Entitic vol]on 07-18-2024 Platelet mean volume (Bld) [Entitic vol] Platelet mean volume [Entitic volume] in Blood by Automated count Low 9.5-13.5 [facility] Platelets Auto (Bld) [#/Vol] on 07-18-2024 Platelets (Bld) [#/Vol] Platelets [#/volume] in Blood by Automated count 150-450 [facility] RBC Auto (Bld) [#/Vol]on RBC (Bld) [#/Vol] Erythrocytes [#/volume] in Blood by Automated count Low 4.20-5.40 [facility] Basophils Auto (Bld) [#/Vol] on 07-12-2024 Basophils (Bld) [#/Vol] Automated basophil count 0.0-0.1 [facility] Basophils/100 WBC Auto (Bld) on 07-12-2024 Basophils/100 WBC (Bld) Automated basophil % 0.2-2.0 [facility] Eosinophils/100 WBC Auto (Bl d)on 07-12-2024 Eosinophils/100 WBC (Bld) Automated eosinophil % 0.9-7.0 [facility] Erythrocyte distribution wid th Auto (RBC) [Ratio]on 07-12-2024 Erythrocyte distribution width (RBC) [Ratio] Erythrocyte distribution width [Ratio] by Automated count 11.0-15.0 [facility] Estimated glomerular filtrat ion rate (GFR) non- Americanon 07-12-2024 GFR/1.73 sq M.predicted among non-blacks MDRD (S/P/Bld) [Vol rate/Area] Estimated glomerular filtration rate (GFR) non- Low >=60 mL/min/1.73 m 2 [facility] Hematocrit Auto (Bld) [Volum e fraction]on 07-12-2024 Hematocrit (Bld) [Volume fraction] Hematocrit [Volume Fraction] of Blood by Automated count Low 36.0-48.0 [facility] Hemoglobin [Mass/volume] in Bloodon 07-12-2024 Hemoglobin (Bld) [Mass/Vol] Hemoglobin [Mass/volume] in Blood Low 12.0-16.0 [facility] Laboratory - Chemistry and C hemistry - challengeon 07-12-2024 Calcium [Mass/Vol] 8.6 mg/dL 8.5-10.1 [facility] Chloride [Moles/Vol] 102 mmol/L 98-107 [facility] CO2 [Moles/Vol] 24.7 mmol/L 21.0-32.0 [facility] Creatinine [Mass/Vol] 1.94 mg/dL High 0.55-1.02 [facility] GFR/1.73 sq M.predicted MDRD (S/P/Bld) [Vol rate/Area] 31 mL/min/{1.73_m2} Low >=60 mL/min/1.73 m 2 [facility] Glucose [Mass/Vol] 203 mg/dL High 74-106 [facility] Potassium [Moles/Vol] 4.6 mmol/L 3.5-5.1 [facility] Sodium [Moles/Vol] 137 mmol/L 136-145 [facility] Urea nitrogen [Mass/Vol] 24.0 mg/dL High 7.0-18.0 [facility] Urea nitrogen/Creatinine [Mass ratio] 12.4 mg/mg [facility] Laboratory - Hematology and Cell countson 07-12-2024 Immature granulocytes/100 WBC (Bld) 1.8 % High 0.0-0.5 [facility] Leukocytes [#/volume] correc chip for nucleated erythrocytes in Blood by Automated counon 07-12-2024 WBC corrected for nucl RBC Auto (Bld) [#/Vol] Leukocytes [#/volume] corrected for nucleated erythrocytes in Blood by Automated coun 4.0-11.0 [facility] Lymphocytes Auto (Bld) [#/Vo l]on 07-12-2024 Lymphocytes (Bld) [#/Vol] Lymphocytes [#/volume] in Blood by Automated count 1.2-3.8 [facility] Lymphocytes/100 WBC Auto (Bl d)on 07-12-2024 Lymphocytes/100 WBC (Bld) Lymphocytes/100 leukocytes in Blood by Automated count 20.5-60.0 [facility] MCH Auto (RBC) [Entitic mass ]on 07-12-2024 MCH (RBC) [Entitic mass] MCH [Entitic mass] by Automated count 26.7-34.0 [facility] MCHC Auto (RBC) [Mass/Vol]on 07-12-2024 MCHC (RBC) [Mass/Vol] MCHC [Mass/volume] by Automated count 29.9-35.2 [facility] MCV Auto (RBC) [Entitic vol] on 07-12-2024 MCV (RBC) [Entitic vol] MCV [Entitic volume] by Automated count 81.0-99.0 [facility] Monocytes Auto (Bld) [#/Vol] on 07-12-2024 Monocytes (Bld) [#/Vol] Automated blood monocyte count 0.3-0.8 [facility] Monocytes/100 WBC Auto (Bld) on 07-12-2024 Monocytes/100 WBC (Bld) Automated monocyte % 1.7-12.0 [facility] Neutrophils Auto (Bld) [#/Vo l]on 07-12-2024 Neutrophils (Bld) [#/Vol] Neutrophils [#/volume] in Blood by Automated count 1.4-6.5 [facility] Neutrophils/100 WBC Auto (Bl d)on 07-12-2024 Neutrophils/100 WBC (Bld) Automated neutrophil % 43.0-75.0 [facility] No Panel Informationon 07-12 Eosinophils # (Auto) 0.2 10 3/uL 0.0-0.7 [facility] Immature Granulocyte # (Auto) 0.13 10 3/uL High 0.00-0.03 [facility] Platelet mean volume Auto (B ld) [Entitic vol]on 07-12-2024 Platelet mean volume (Bld) [Entitic vol] Platelet mean volume [Entitic volume] in Blood by Automated count 9.5-13.5 [facility] Platelets Auto (Bld) [#/Vol] on 07-12-2024 Platelets (Bld) [#/Vol] Platelets [#/volume] in Blood by Automated count 150-450 [facility] RBC Auto (Bld) [#/Vol]on RBC (Bld) [#/Vol] Erythrocytes [#/volume] in Blood by Automated count Low 4.20-5.40 [facility] Serum or plasma anion gap de terminationon 07-12-2024 Anion gap [Moles/Vol] Serum or plasma an ion gap determination [facility] ANION GAPon 07-11-2024 Anion gap [Moles/Vol] 10.0 mmol/L Normal 8.0-16.0 [facility] Comment on above: Result Comment: ANIO N GAP = Sodium -(Chloride + CO2) Performed By: #### P OCGL #### [facility] [employer] [facility] [address] [place] [address] Anion Gapon 07-11-2024 Anion gap [Moles/Vol] 10 mmol/L 8.0 - 16.0 meq/L [facility] Comment on above: ANION GAP = Sodium - (Chloride + CO2) Performed at [facility] [address] [place] [address] BASIC METABOL PANELon 2024 Calcium [Mass/Vol] 8.9 mg/dL Normal 8.8-10.2 [facility] Comment on above: Performed By: #### P OCGL #### [facility] [address] [place] [address] CO2 [Moles/Vol] 22 mmol/L Normal 22-29 [facility] Comment on above: Performed By: #### P OCGL #### [facility] [address] [place] [address] Creatinine [Mass/Vol] 1.0 mg/dL High 0.5-0.9 [facility] Comment on above: Performed By: #### P OCGL #### [facility] [address] [place] [address] Glucose [Mass/Vol] 166 mg/dL High 74-109 [facility] Comment on above: Performed By: #### P OCGL #### [facility] [address] [place] [address] Urea nitrogen [Mass/Vol] 16 mg/dL Normal 8-23 [facility] Comment on above: Performed By: #### P OCGL #### [facility] [address] [address] Chloride [Moles/Vol] 103 mmol/L Normal 98-111 [facility] Comment on above: Performed By: #### P OCGL #### [facility] [address] [address] Potassium [Moles/Vol] 4.7 mmol/L Normal 3.5-5.2 [facility] Comment on above: Result Comment: Low level specimen hemolysis is present as indicated by the interference index on the Yamilet analyzer. ??The reported K+ level may be falsely increased. If clinically warranted, recollection of the specimen is suggested. Performed By: #### P OCGL #### [facility] [employer] [address] [place] [address] Sodium [Moles/Vol] 135 mmol/L Normal 135-145 [facility] Comment on above: Performed By: #### P OCGL #### [facility] [employer] [address] [address] Basic metabolic 2000 panelon 07-11-2024 Calcium [Mass/Vol] 8.9 mg/dL 8.8 - 10. 2 mg/dL [facility] Comment on above: Performed at [facility] [address] [place] [address] Chloride [Moles/Vol] 103 mmol/L 98 - 11 1 meq/L [facility] CO2 [Moles/Vol] 22 mmol/L 22 - 29 meq/L [facility] Creatinine [Mass/Vol] 1.0 mg/dL High 0.5 - 0.9 mg/dL [facility] Glucose [Mass/Vol] 166 mg/dL High 74 - 109 mg/dL [facility] Interpretation and review of laboratory results Abnormal [facility] Potassium [Moles/Vol] 4.7 mmol/L 3.5 - 5.2 meq/L [facility] Comment on above: Low level specimen h emolysis is present as indicated by the interference index on the Yamilet analyzer. The reported K+ level may be falsely increased. If clinically warranted, recollection of the specimen is suggested. Sodium [Moles/Vol] 135 mmol/L 135 - 145 meq/L [facility] Urea nitrogen [Mass/Vol] 16 mg/dL 8 - 23 mg/dL [facility] GFR, ESTIMATEDon 07-11-2024 GFR/1.73 sq M.predicted MDRD (S/P/Bld) [Vol rate/Area] 62 mL/min/{1.73_m2} Normal >60 [facility] Comment on above: Pediatric calculator link https://www.kidney.org/professionals/kdoqi/gfr_calculatorped [...] that affects renal tubular secretion. Performed at [address] [address] Result Comment: Pedi atric calculator link https://www.kidney.org/professionals/kdoqi/gfr_calculatorped [...] secretion. Performed By: #### P OCGL #### [facility] [address] [place] [address] GLUCOSE POCon 07-11-2024 Glucose [Mass/Vol] 177 mg/dL High 70-108 [facility] Comment on above: Performed at [facility] [employer] [facility] [address] [place] [address] Performed By: #### P OCGL #### [facility] [address] [place] [address] Glucose Auto test strip (Bld ) [Mass/Vol]on 07-11-2024 Interpretation and review of laboratory results Abnormal [facility] HGB,HCTon 07-11-2024 Hematocrit (Bld) [Volume fraction] 33.4 % Low 37.0-47.0 [facility] Comment on above: Performed at [facility] [employer] [facility] [address] [place] [address] Performed By: #### P OCGL #### [place] [address] Hemoglobin (Bld) [Mass/Vol] 10.8 g/dL Low 12.0-16.0 [facility] Comment on above: Performed By: #### P OCGL #### [place] [address] Hemoglobin and Hematocrit pa bhavna (Bld)on 07-11-2024 Interpretation and review of laboratory results Abnormal [facility] No Panel Informationon 07-11 [facility] ANION GAPon 07-10-2024 Anion gap [Moles/Vol] 8.0 mmol/L Normal 8.0-16.0 [facility] Comment on above: Result Comment: ANIO N GAP = Sodium -(Chloride + CO2) Performed By: #### P OCGL #### [facility] [place] [address] Anion Gapon 07-10-2024 Anion gap [Moles/Vol] 8 mmol/L 8.0 - 16.0 meq/L [facility] Comment on above: ANION GAP = Sodium - (Chloride + CO2) Performed at [facility] [address] [place] [address] BASIC METABOL PANELon 2024 Calcium [Mass/Vol] 8.8 mg/dL Normal 8.8-10.2 [facility] Comment on above: Performed By: #### P OCGL #### [facility] [address] [place] [address] CO2 [Moles/Vol] 26 mmol/L Normal 22-29 [facility] Comment on above: Performed By: #### P OCGL #### [facility] [address] [place] [address] Creatinine [Mass/Vol] 1.1 mg/dL High 0.5-0.9 [facility] Comment on above: Performed By: #### P OCGL #### [facility] [address] [place] [address] Glucose [Mass/Vol] 198 mg/dL High 74-109 [facility] Comment on above: Performed By: #### P OCGL #### [employer] [address] [place] [address] Urea nitrogen [Mass/Vol] 24 mg/dL High 8-23 [facility] Comment on above: Performed By: #### P OCGL #### [employer] [address] [place] [address] Chloride [Moles/Vol] 101 mmol/L Normal 98-111 [facility] Comment on above: Performed By: #### P OCGL #### [employer] [address] [place] [address] Potassium [Moles/Vol] 4.6 mmol/L Normal 3.5-5.2 [facility] Comment on above: Performed By: #### P OCGL #### [facility] [address] [place] [address] Sodium [Moles/Vol] 135 mmol/L Normal 135-145 [facility] Comment on above: Performed By: #### P OCGL #### [facility] [address] [place] [address] Basic metabolic 2000 panelon 07-10-2024 Calcium [Mass/Vol] 8.8 mg/dL 8.8 - 10. 2 mg/dL [facility] Comment on above: Performed at [facility] [address] [place] [address] Chloride [Moles/Vol] 101 mmol/L 98 - 11 1 meq/L [facility] CO2 [Moles/Vol] 26 mmol/L 22 - 29 meq/L [facility] Creatinine [Mass/Vol] 1.1 mg/dL High 0.5 - 0.9 mg/dL [facility] Glucose [Mass/Vol] 198 mg/dL High 74 - 109 mg/dL [facility] Potassium [Moles/Vol] 4.6 mmol/L 3.5 - 5.2 meq/L [facility] [employer] Sodium [Moles/Vol] 135 mmol/L 135 - 145 meq/L [facility] Urea nitrogen [Mass/Vol] 24 mg/dL High 8 - 23 mg/dL [facility] GFR, ESTIMATEDon 07-10-2024 GFR/1.73 sq M.predicted MDRD (S/P/Bld) [Vol rate/Area] 56 mL/min/{1.73_m2} Abnormal >60 [facility] Comment on above: Pediatric calculator link https://www.kidney.org/professionals/kdoqi/gfr_calculatorped [...] that affects renal tubular secretion. Performed at [facility] [address] [place] [address] Result Comment: Pedi atric calculator link https://www.kidney.org/professionals/kdoqi/gfr_calculatorped [...] secretion. Performed By: #### P OCGL #### [address] [address] GLUCOSE POCon 07-10-2024 Glucose [Mass/Vol] 267 mg/dL High 70-[address] [facility] Comment on above: Performed at [facility] [address] [place] [address] Performed By: #### P OCGL #### [address] [address] Glucose [Mass/Vol] 154 mg/dL High 70-108 [facility] Comment on above: Performed at [facility] [address] [place] [address] Performed By: #### P OCGL #### [address] [address] Glucose [Mass/Vol] 302 mg/dL High 70-108 [facility] Comment on above: Performed at [facility] [address] [place] [address] Performed By: #### P OCGL #### [address] [address] Glucose [Mass/Vol] 205 mg/dL High 70-108 [facility] Comment on above: Performed at [facility] [address] [place] [address] Performed By: #### P OCGL #### [address] [address] Glucose Auto test strip (Bld ) [Mass/Vol]on 07-10-2024 Interpretation and review of laboratory results Abnormal [facility] Interpretation and review of laboratory results Abnormal [facility] Interpretation and review of laboratory results Abnormal [facility] Interpretation and review of laboratory results Abnormal [facility] HGB,HCTon 07-10-2024 Hematocrit (Bld) [Volume fraction] 32.2 % Low 37.0-47.0 [facility] Comment on above: Performed at [facility] [address] [place] [address] Performed By: #### P OCGL #### [place] [id number] Hemoglobin (Bld) [Mass/Vol] 10.0 g/dL Low 12.0-16.0 [facility] Comment on above: Performed By: #### P OCGL #### [facility] [address] [place] [address] Hemoglobin and Hematocrit pa bhavna (Bld)on 07-10-2024 Hemoglobin (Bld) [Mass/Vol] 10 g/dL Low [facility] Interpretation and review of laboratory results Abnormal [facility] No Panel Informationon 07-10 Interpretation and review of laboratory results Abnormal [facility] ANION GAPon 07-09-2024 Anion gap [Moles/Vol] 10.0 mmol/L Normal 8.0-16.0 [facility] Comment on above: Result Comment: ANIO N GAP = Sodium -(Chloride + CO2) Performed By: #### P OCGL #### [address] [address] Anion Gapon 07-09-2024 Anion gap [Moles/Vol] 10 mmol/L 8.0 - 16.0 meq/L [facility] Comment on above: ANION GAP = Sodium - (Chloride + CO2) Performed at [facility] [address] [place] [address] BASIC METABOL PANELon 2024 Calcium [Mass/Vol] 8.3 mg/dL Low 8.8-10.2 [facility] Comment on above: Performed By: #### P OCGL #### [facility] [address] [address] CO2 [Moles/Vol] 23 mmol/L Normal 22-29 [facility] Comment on above: Performed By: #### P OCGL #### [facility] [address] [place] [address] Creatinine [Mass/Vol] 1.1 mg/dL High 0.5-0.9 [facility] Comment on above: Performed By: #### P OCGL #### [facility] [address] [place] [address] Glucose [Mass/Vol] 197 mg/dL High 74-109 [facility] Comment on above: Performed By: #### P OCGL #### [facility] [address] [place] [address] Urea nitrogen [Mass/Vol] 21 mg/dL Normal 8-23 [facility] Comment on above: Performed By: #### P OCGL #### [facility] [address] [place] [address] Chloride [Moles/Vol] 103 mmol/L Normal 98-111 [facility] Comment on above: Performed By: #### P OCGL #### [facility] [address] [place] [address] Potassium [Moles/Vol] 5.8 mmol/L High 3.5-5.2 [facility] Comment on above: Performed By: #### P OCGL #### [facility] [address] [place] [address] Sodium [Moles/Vol] 136 mmol/L Normal 135-145 [facility] Comment on above: Performed By: #### P OCGL #### [facility] [address] [place] [address] Basic metabolic 2000 panelon 07-09-2024 Calcium [Mass/Vol] 8.3 mg/dL Low 8.8 - 10. 2 mg/dL [facility] Comment on above: Performed at [facility] [employer] [facility] [address] [place] [address] Chloride [Moles/Vol] 103 mmol/L 98 - 11 1 meq/L [facility] CO2 [Moles/Vol] 23 mmol/L 22 - 29 meq/L [facility] Creatinine [Mass/Vol] 1.1 mg/dL High 0.5 - 0.9 mg/dL [facility] Glucose [Mass/Vol] 197 mg/dL High 74 - 109 mg/dL [facility] Potassium [Moles/Vol] 5.8 mmol/L High 3.5 - 5.2 meq/L [facility] Sodium [Moles/Vol] 136 mmol/L 135 - 145 meq/L [facility] Urea nitrogen [Mass/Vol] 21 mg/dL 8 - 23 mg/dL [facility] GFR, ESTIMATEDon 07-09-2024 GFR/1.73 sq M.predicted MDRD (S/P/Bld) [Vol rate/Area] 56 mL/min/{1.73_m2} Abnormal >[address] [facility] Comment on above: Pediatric calculator link [...] that affects renal tubular secretion. Performed at [facility] [employer] [place] [address] Result Comment: Pedi atric calculator link https://www.kidney.org/professionals/kdoqi/gfr_calculatorped [...] secretion. Performed By: #### P OCGL #### [employer] [address] [place] [address] GLUCOSE POCon 07-09-2024 Glucose [Mass/Vol] 211 mg/dL High 70-[address] [facility] Comment on above: Performed at [employer] [facility] [address] [place] [address] Performed By: #### P OCGL #### [employer] [address] [place] [address] Glucose [Mass/Vol] 212 mg/dL High 70-108 [facility] Comment on above: Performed at [employer] [facility] [address] [place] [address] Performed By: #### P OCGL #### [employer] [address] [place] [address] Glucose [Mass/Vol] 169 mg/dL High 70-108 [facility] Comment on above: Performed at [facility] [address] [place] [address] Performed By: #### P OCGL #### [facility] [place] [address] Glucose [Mass/Vol] 229 mg/dL High 70-[address] [facility] Comment on above: Performed at [facility] [address] [place] [address] Performed By: #### P OCGL #### [place] [address] Glucose [Mass/Vol] 203 mg/dL High 70-108 [facility] Comment on above: Performed at [facility] [address] [place] [address] Performed By: #### P OCGL #### [place] [address] HGB,HCTon 07-09-2024 Hematocrit (Bld) [Volume fraction] 36.7 % Low 37.0-47.0 [facility] Comment on above: Performed at [facility] [address] [place] [address] Performed By: #### P OCGL #### [place] [address] Hemoglobin (Bld) [Mass/Vol] 11.9 g/dL Low 12.0-16.0 [facility] Comment on above: Performed By: #### P OCGL #### [place] [address] No Panel Informationon 07-09 Interpretation and review of laboratory results Abnormal [facility] POTASSIUMon 07-09-2024 Potassium [Moles/Vol] 4.7 mmol/L Normal 3.5-5.2 [facility] Comment on above: Performed By: #### K P #### [place] [address] Potassiumon 07-09-2024 Potassium [Moles/Vol] 4.7 mmol/L 3.5 - 5.2 meq/L [facility] Comment on above: Performed at [facility] [address] [place] [address] GLUCOSE POCon 07-08-2024 Glucose [Mass/Vol] 266 mg/dL High 70-108 [facility] Comment on above: Performed at [facility] [address] [place] [address] Performed By: #### P OCGL #### [facility] [address] [place] [address] Glucose [Mass/Vol] 120 mg/dL High 70-[address] [facility] Comment on above: Performed at [facility] [address] [place] [address] Performed By: #### P OCGL #### [facility] [address] [place] [address] Glucose [Mass/Vol] 105 mg/dL Normal 70-108 [facility] Comment on above: Performed at [facility] [address] [place] [address] Performed By: #### P OCGL #### [facility] [address] [address] Glucose [Mass/Vol] 136 mg/dL High 70-108 [facility] Comment on above: Performed at [facility] [address] [place] [address] Performed By: #### P OCGL #### [facility] [address] [address] Glucose Auto test strip (Bld ) [Mass/Vol]on 07-08-2024 Interpretation and review of laboratory results Abnormal [facility] Interpretation and review of laboratory results Abnormal [facility] Interpretation and review of laboratory results Abnormal [facility] XR LUMBAR SPINE 1 VWon [...] technology. Electronically signed by Dr. Jerrod Betts [facility] Sivakumar Betts MD - 07/08/2024 [...] technology. Electronically signed by Dr. Jerrod Betts [facility] Radiology Study observation (narrative) [facility] Intraoperative appearance of the lumbar spine. This report has been created using voice recognition software. It may contain minor errors which are inherent in voice recognition technology. Electronically signed by Dr. Boo Headley [facility] MOBILE LATERAL LUMBA R SPINE: CLINICAL INFORMATION: surgery. L3-L5 decompression. L4-L5- fusion COMPARISON: No prior study. TECHNIQUE: A single lateral mobile view of the lumbar spine was obtained For localization purposes. FINDINGS: 2 spinal needles are present posteriorly directed at the L4 and L5 levels. [facility] Boo Headley MD - 07/08/2024 [...] technology. Electronically signed by Dr. Boo Headley [facility] Radiology Study observation (narrative) [facility] XR Lumbar spine Single viewO rdered By: Sivakumar Betts on 07-08-2024 [facility] Work Phone: XR Lumbar spine Single viewO rdered By: Boo Headley on 07-08-2024 [facility] Work Phone: ANION GAPon 07-07-2024 Anion gap [Moles/Vol] 14.0 mmol/L Normal 8.0-16.0 [facility] Comment on above: Result Comment: ANIO N GAP = Sodium -(Chloride + CO2) Performed By: #### B MP, EGFR1, CBCND, ANION #### [facility] [address] [place] [address] Anion Gapon 07-07-2024 Anion gap [Moles/Vol] 14 mmol/L 8.0 - 16.0 meq/L [facility] Comment on above: ANION GAP = Sodium - (Chloride + CO2) Performed at [facility] [address] [place] [address] BASIC METABOL PANELon 2024 CO2 [Moles/Vol] 21 mmol/L Low 22-29 [facility] Comment on above: Performed By: #### B MP, EGFR1, CBCND, ANION #### [facility] [address] [place] [address] Creatinine [Mass/Vol] 1.0 mg/dL High 0.5-0.9 [facility] Comment on above: Performed By: #### B MP, EGFR1, CBCND, ANION #### [facility] [address] [place] [address] Glucose [Mass/Vol] 172 mg/dL High 74-109 [facility] Comment on above: Performed By: #### B MP, EGFR1, CBCND, ANION #### [facility] [address] [place] [address] Urea nitrogen [Mass/Vol] 33 mg/dL High 8-23 [facility] Comment on above: Performed By: #### B MP, EGFR1, CBCND, ANION #### [facility] [employer] [address] [place] [address] Calcium [Mass/Vol] 9.2 mg/dL Normal 8.8-10.2 [facility] Comment on above: Performed By: #### B MP, EGFR1, CBCND, ANION #### [facility] [employer] [address] [place] [address] Chloride [Moles/Vol] 103 mmol/L Normal 98-111 [facility] Comment on above: Performed By: #### B MP, EGFR1, CBCND, ANION #### [facility] [address] [place] [address] Potassium [Moles/Vol] 4.4 mmol/L Normal 3.5-5.2 [facility] Comment on above: Result Comment: Low level specimen hemolysis is present as indicated by the interference index on the Yamilet analyzer. ??The reported K+ level may be falsely increased. If clinically warranted, recollection of the specimen is suggested. Performed By: #### B MP, EGFR1, CBCND, ANION #### [facility] [employer] [address] [place] [address] Sodium [Moles/Vol] 138 mmol/L Normal 135-145 [facility] Comment on above: Performed By: #### B MP, EGFR1, CBCND, ANION #### [employer] [address] [place] [address] Basic metabolic 2000 panelon 07-07-2024 Calcium [Mass/Vol] 9.2 mg/dL 8.8 - 10. 2 mg/dL [facility] Comment on above: Performed at [facility] [address] [place] [address] Chloride [Moles/Vol] 103 mmol/L 98 - 11 1 meq/L [facility] CO2 [Moles/Vol] 21 mmol/L Low 22 - 29 meq/L [facility] Creatinine [Mass/Vol] 1.0 mg/dL High 0.5 - 0.9 mg/dL [facility] Glucose [Mass/Vol] 172 mg/dL High 74 - 109 mg/dL [facility] Interpretation and review of laboratory results Abnormal [facility] Potassium [Moles/Vol] 4.4 mmol/L 3.5 - 5.2 meq/L [facility] Comment on above: Low level specimen h emolysis is present as indicated by the interference index on the Yamilet analyzer. The reported K+ level may be falsely increased. If clinically warranted, recollection of the specimen is suggested. Sodium [Moles/Vol] 138 mmol/L 135 - 145 meq/L [facility] Urea nitrogen [Mass/Vol] 33 mg/dL High 8 - 23 mg/dL [facility] CBCon 07-07-2024 Erythrocyte distribution width (RBC) [Entitic vol] 40.3 fL 35.0 - 45.0 fL [facility] Platelets (Bld) [#/Vol] 236 10*3/uL [facility] RBC (Bld) [#/Vol] 4.73 10*6/uL [facility] [place] [facility] WBC (Bld) [#/Vol] 8.6 10*3/uL [facility] CBC NO DIFFERENTIALon 2024 Erythrocyte distribution width (RBC) [Ratio] 12.6 % Normal 11.5-14.5 [facility] Comment on above: Performed By: #### B MP, EGFR1, CBCND, ANION #### [employer] [address] [place] [address] Hematocrit (Bld) [Volume fraction] 41.6 % Normal 37.0-47.0 [facility] Comment on above: Performed By: #### B MP, EGFR1, CBCND, ANION #### [employer] [address] [place] [address] Hemoglobin (Bld) [Mass/Vol] 13.5 g/dL Normal 12.0-16.0 [facility] Comment on above: Performed By: #### B MP, EGFR1, CBCND, ANION #### [employer] [address] [place] [address] MCH (RBC) [Entitic mass] 28.5 pg Normal 26.0-33.0 [facility] Comment on above: Performed By: #### B MP, EGFR1, CBCND, ANION #### [place] [address] MCHC (RBC) [Mass/Vol] 32.5 g/dL Normal 32.2-35.5 [facility] Comment on above: Performed By: #### B MP, EGFR1, CBCND, ANION #### [place] [address] MCV (RBC) [Entitic vol] 87.9 fL Normal 81.0-99.0 [facility] Comment on above: Performed By: #### B MP, EGFR1, CBCND, ANION #### [place] [address] PLATELET 236 thou/mm3 Normal 130-400 [facility] Comment on above: Performed By: #### B MP, EGFR1, CBCND, ANION #### [place] [address] Platelet mean volume (Bld) [Entitic vol] 9.6 fL Normal 9.4-12.4 [facility] Comment on above: Performed at [facility] [address] [place] [address] Performed By: #### B MP, EGFR1, CBCND, ANION #### [place] [address] RBC 4.73 mill/mm3 Normal 4.20-5.40 [facility] Comment on above: Performed By: #### B MP, EGFR1, CBCND, ANION #### [place] [address] RDW-SD 40.3 fL Normal 35.0-45.0 [facility] Comment on above: Performed By: #### B MP, EGFR1, CBCND, ANION #### [place] [address] WBC 8.6 thou/mm3 Normal 4.8-10.8 [facility] Comment on above: Performed By: #### B MP, EGFR1, CBCND, ANION #### [facility] [place] [address] GFR, ESTIMATEDon 07-07-2024 GFR/1.73 sq M.predicted MDRD (S/P/Bld) [Vol rate/Area] 62 mL/min/{1.73_m2} Normal >[address] [facility] Comment on above: Pediatric calculator link [...] that affects renal tubular secretion. Performed at [facility] [employer] [place] [address] Result Comment: Pedi atric calculator link https://www.kidney.org/professionals/kdoqi/gfr_calculatorped [...] #### B MP, EGFR1, CBCND, ANION #### [employer] [address] [place] [address] GLUCOSE POCon 07-07-2024 Glucose [Mass/Vol] 271 mg/dL High 70-108 [facility] Comment on above: Performed at [facility] [address] [place] [address] Performed By: #### P OCGL #### [employer] [address] [place] [address] Glucose [Mass/Vol] 188 mg/dL High 70-108 [facility] Comment on above: Performed at [facility] [address] [place] [address] Performed By: #### P OCGL #### [employer] [address] [place] [address] Glucose [Mass/Vol] 174 mg/dL High 70-108 [facility] Comment on above: Performed at [employer] [address] [place] [address] Performed By: #### P OCGL #### [facility] [address] [place] [address] Glucose [Mass/Vol] 76 mg/dL Normal 70-108 [facility] Comment on above: Performed at [employer] [facility] [address] [place] [address] Performed By: #### P OCGL #### [facility] [address] [place] [address] Glomerular Filtration Rate, Estimatedon 07-07-2024 [facility] Glucose Auto test strip (Bld ) [Mass/Vol]on 07-07-2024 Interpretation and review of laboratory results [facility]normal [facility] Interpretation and review of laboratory results Abnormal [facility] [employer] Interpretation and review of laboratory results Abnormal [facility] No Panel Informationon 07-07 [employer] XR CHEST (2 VW)on 07-07-2024 XR CHEST [...] Kj Epps MD on 07/07/2024 02:22 AM [facility] CONSOLID[facility] Chest X-ray: 2 views . Indication: Pulmonary congestion. Comparison: None Findings: The lungs are well aerated. No focal consolidation, or pleural effusion. The cardiac silhouette is normal in size. Bony thorax is grossly intact. Bilateral shoulder arthroplasty. External metallic density versus surgical hardware projects on the lower cervical spine. [facility] Kj Epps MD - 07/07/2024 Chest X-ray: [...] Kj Epps MD on 07/07/2024 02:22 AM [facility] Radiology Study observation (narrative) [facility] XR Chest 2 ViewsOrdered By: Kj Epps on 07-07-2024 [facility] ANION GAPon 07-06-2024 Anion gap [Moles/Vol] 14.0 mmol/L Normal 8.0-16.0 [facility] Comment on above: Result Comment: ANIO N GAP = Sodium -(Chloride + CO2) Performed By: #### P OCGL #### [facility] [employer] [address] [place] [address] APTTon 07-06-2024 aPTT Coag (Bld) [Time] 29.5 s Normal 22.0-38.0 [facility] Comment on above: Result Comment: Ther apeutic Heparin Reference Range= 60-95 seconds (corresponds to 0.3 to 0.7 u/mL Anti-Xa factor activity) Performed By: #### P OCGL #### [facility] [address] [place] [address] Anion Gapon 07-06-2024 Anion gap [Moles/Vol] 14 mmol/L 8.0 - 16.0 meq/L [facility] Comment on above: ANION GAP = Sodium - (Chloride + CO2) Performed at [facility] [address] [place] [address] CBC WITH DIFFERENTIALon 06-23 ABS BASOPHILS 0.0 thou/mm3 Normal 0.0-0.1 [facility] Comment on above: Performed By: #### P OCGL #### [facility] [address] [place] [address] ABS EOSINOPHILS 0.0 thou/mm3 Normal 0.0-0.4 [facility] Comment on above: Performed By: #### P OCGL #### [address] [address] ABS IMMATURE GRANS (IG) 0.05 thou/mm3 Normal 0.00-0.07 [facility] Comment on above: Performed By: #### P OCGL #### [address] [address] ABS LYMPHOCYTES 2.8 thou/mm3 Normal 1.0-4.8 [facility] Comment on above: Performed By: #### P OCGL #### [address] [address] ABS MONOCYTES 0.8 thou/mm3 Normal 0.4-1.3 [facility] Comment on above: Performed By: #### P OCGL #### [address] [address] ABS NEUTROPHILS 7.9 thou/mm3 High 1.8-7.7 [facility] Comment on above: Performed By: #### P OCGL #### [address] [address] Basophils/100 WBC (Bld) 0.2 % Normal [facility] Comment on above: Performed By: #### P OCGL #### [address] [address] Eosinophils/100 WBC (Bld) 0.3 % Normal [facility] Comment on above: Performed By: #### P OCGL #### [address] [address] Erythrocyte distribution width (RBC) [Ratio] 12.5 % Normal 11.5-14.5 [facility] Comment on above: Performed By: #### P OCGL #### [address] [address] Hematocrit (Bld) [Volume fraction] 42.6 % Normal 37.0-47.0 [facility] Comment on above: Performed By: #### P OCGL #### [address] [address] Hemoglobin (Bld) [Mass/Vol] 13.8 g/dL Normal 12.0-16.0 [facility] Comment on above: Performed By: #### P OCGL #### [address] [address] IMMATURE GRANS (IG) 0.4 % Normal [facility] Comment on above: Performed By: #### P OCGL #### [address] [address] Lymphocytes/100 WBC (Bld) 24.0 % Normal [facility] Comment on above: Performed By: #### P OCGL #### [address] [address] MCH (RBC) [Entitic mass] 28.6 pg Normal 26.0-33.0 [facility] Comment on above: Performed By: #### P OCGL #### [address] [address] MCHC (RBC) [Mass/Vol] 32.4 g/dL Normal 32.2-35.5 [facility] Comment on above: Performed By: #### P OCGL #### [address] [address] MCV (RBC) [Entitic vol] 88.2 fL Normal 81.0-99.0 [facility] Comment on above: Performed By: #### P OCGL #### [address] [address] Monocytes/100 WBC (Bld) 6.8 % Normal [facility] Comment on above: Performed By: #### P OCGL #### [address] [address] Neutrophils/100 WBC (Bld) 68.3 % Normal [facility] Comment on above: Performed By: #### P OCGL #### [address] [address] NRBC 0 /100 wbc Normal [facility] Comment on above: Performed By: #### P OCGL #### [address] [address] PLATELET 274 thou/mm3 Normal 130-400 [facility] Comment on above: Performed By: #### P OCGL #### [facility] [address] [place] [address] Platelet mean volume (Bld) [Entitic vol] 9.7 fL Normal 9.4-12.4 [facility] Comment on above: Performed By: #### P OCGL #### [facility] [employer] [facility] [address] [place] [address] RBC 4.83 mill/mm3 Normal 4.20-5.40 [facility] Comment on above: Performed By: #### P OCGL #### [facility] [address] [place] [address] RDW-SD 39.9 fL Normal 35.0-45.0 [facility] Comment on above: Performed By: #### P OCGL #### [facility] [employer] [facility] [address] [place] [address] WBC 11.6 thou/mm3 High 4.8-10.8 [facility] Comment on above: Performed By: #### P OCGL #### [facility] [address] [place] [address] CBC with Auto Differentialon 07-06-2024 Basophils (Bld) [...] [facility] Comment on above: Performed at [facility] [address] [place] [address] Platelets (Bld) [#/Vol] 274 10*3/uL [facility] RBC (Bld) [#/Vol] 4.83 10*6/uL [facility] WBC (Bld) [#/Vol] 11.6 10*3/uL [facility] COMP. METABOLIC PANELon 06-23 Albumin [Mass/Vol] 4.3 g/dL Normal 3.4-4.9 [facility] Comment on above: Performed By: #### P OCGL #### [facility] [address] [address] ALP [Catalytic activity/Vol] 65 U/L Normal 35-104 [facility] Comment on above: Performed By: #### P OCGL #### [address] [address] ALT [Catalytic activity/Vol] 24 U/L Normal 10-35 [facility] Comment on above: Performed By: #### P OCGL #### [address] [address] AST [Catalytic activity/Vol] 23 U/L Normal 10-35 [facility] Comment on above: Performed By: #### P OCGL #### [address] [address] Bilirubin [Mass/Vol] 0.4 mg/dL Normal 0.3-1.2 [facility] Comment on above: Performed By: #### P OCGL #### [address] [address] Calcium [Mass/Vol] 9.6 mg/dL Normal 8.8-10.2 [facility] Comment on above: Performed By: #### P OCGL #### [address] [address] CO2 [Moles/Vol] 26 mmol/L Normal 22-29 [facility] Comment on above: Performed By: #### P OCGL #### [address] [address] Creatinine [Mass/Vol] 1.3 mg/dL High 0.5-0.9 [facility] Comment on above: Performed By: #### P OCGL #### [facility] [address] [place] [address] Glucose [Mass/Vol] 259 mg/dL High 74-109 [facility] Comment on above: Performed By: #### P OCGL #### [address] [address] Protein [Mass/Vol] 7.2 g/dL Normal 6.4-8.3 [facility] Comment on above: Performed By: #### P OCGL #### [facility] [address] [place] [address] Urea nitrogen [Mass/Vol] 43 mg/dL High 8-23 [facility] Comment on above: Performed By: #### P OCGL #### [facility] [address] [place] [address] Chloride [Moles/Vol] 96 mmol/L Low 98-111 [facility] Comment on above: Performed By: #### P OCGL #### [address] [address] POTASSIUM WITH REFLEX MG 5.0 meq/L Normal 3.5-5.2 [facility] Comment on above: Result Comment: Low level specimen hemolysis is present as indicated by the interference index on the Yamilet analyzer. ??The reported K+ level may be falsely increased. If clinically warranted, recollection of the specimen is suggested. Performed By: #### P OCGL #### [address] [address] Sodium [Moles/Vol] 136 mmol/L Normal 135-145 [facility] Comment on above: Performed By: #### P OCGL #### [address] [address] Comprehensive metabolic 2000 panelon 07-06-2024 Albumin BCG dye [Mass/Vol] 4.3 g/dL 3.4 - 4.9 g/dL [facility] ALP [Catalytic activity/Vol] 65 U/L 35 - 104 U/L [facility] ALT No additional P-5'-P [Catalytic activity/Vol] 24 U/L 10 - 35 U/L [facility] Comment on above: Performed at [facility] [address] [place] [address] AST [Catalytic activity/Vol] 23 U/L 10 - 35 U/L [facility] [place] [facility] Bilirubin [Mass/Vol] 0.4 mg/dL 0.3 - 1 .2 mg/dL [facility] Calcium [Mass/Vol] 9.6 mg/dL 8.8 - 10. 2 mg/dL [facility] [place] [facility] Chloride [Moles/Vol] 96 mmol/L Low 98 - 11 1 meq/L [facility] [employer] CO2 [Moles/Vol] 26 mmol/L 22 - 29 meq/L [facility] [place] [facility] Creatinine [Mass/Vol] 1.3 mg/dL High 0.5 - 0.9 mg/dL [facility] Glucose [Mass/Vol] 259 mg/dL High 74 - 109 mg/dL [facility] [employer] Potassium [Moles/Vol] 5.0 mmol/L 3.5 - 5.2 meq/L [facility] [employer] Comment on above: Low level specimen h emolysis is present as indicated by the interference index on the Yamilet analyzer. The reported K+ level may be falsely increased. If clinically warranted, recollection of the specimen is suggested. Protein [Mass/Vol] 7.2 g/dL 6.4 - 8.3 g/dL [facility] Sodium [Moles/Vol] 136 mmol/L 135 - 145 meq/L [facility] [employer] Urea nitrogen [Mass/Vol] 43 mg/dL High 8 - 23 mg/dL [facility] EKG 12 leadOrdered By: Kp Rodriges on 07-06-2024 Atrial Rate 68 BPM [employer] Work Phone: P Kake 58 degrees [employer] Work Phone: P-R Interval 146 ms [employer] Work Phone: Q-T Interval 422 ms [employer] Work Phone: QRS Duration 82 ms [employer] Work Phone: QTc Calculation (Bazett) 448 ms [employer] Work Phone: R Kake 67 degrees Keith Green [employer] Work Phone: T Kake 66 degrees Keith RaftOutmichelle [employer] Work Phone: Ventricular Rate 68 BPM Keith mcdermott [employer] Work Phone: Keith [employer] Work Phone: EKG 12 leadon 07-06-2024 Normal sinus rhythm Possible Left atrial enlargement ST & T wave abnormality, consider anterior ischemia Abnormal ECG No previous ECGs available Clinical correlation is indicated Confirmed by Kp Rodriges ([id number]) on 07/06/2024 11:10:52 PM [facility] Kp Vargas MD - 07/06/2024 Normal sinus rhythm Possible Left atrial enlargement ST & T wave abnormality, consider anterior ischemia Abnormal ECG No previous ECGs available Clinical correlation is indicated Confirmed by Kp Rodriges ([id number]) on 07/06/2024 11:10:52 PM [facility] [employer] EKG 12-LEADon 07-06-2024 EKG 12-LEAD 68 68 146 82 [phone] Normal sinus rhythm Possible Left atrial enlargement ST & T wave abnormality, consider anterior ischemia Abnormal ECG No previous ECGs available Clinical correlation is indicated Confirmed by Kp Rodriges ([id number]) on 07/06/2024 11:10:52 PM [email or web address] RetrieveTestByDateTime ?[id number]&D ate=06-07-2024&Time=20 %3a11%3a37%3a00&TestTy pe=ECG&Site=3&OutputTy pe=PDF&Ext=PDF Normal [facility] GFR, ESTIMATEDon 07-06-2024 GFR/1.73 sq M.predicted MDRD (S/P/Bld) [Vol rate/Area] 46 mL/min/{1.73_m2} Abnormal >60 [employer] Comment on above: Pediatric calculator link https://www.kidney.org/professionals/kdoqi/gfr_calculatorped [...] that affects renal tubular secretion. Performed at [facility] [place] [address] Result Comment: Soniya robertson calculator link https://www.kidney.org/professionals/kdoqi/gfr_calculatorped [...] secretion. Performed By: #### P OCGL #### [facility] [employer] [address] [place] [address] GLUCOSE POCon 07-06-2024 Glucose [Mass/Vol] 280 mg/dL High 70-108 [facility] Comment on above: Performed at [facility] [place] [address] Performed By: #### P OCGL #### [facility] [place] [id number] Glucose Auto test strip (Bld ) [Mass/Vol]on 07-06-2024 Interpretation and review of laboratory results Abnormal [facility] [employer] [facility] [employer] INR Coag (PPP) [Relative jackie e]on 07-06-2024 [facility] [employer] No Panel Informationon 07-06 Interpretation and review of laboratory results Abnormal [facility] [employer] PROTHOMBIN TIMEon 07-06-2024 INR Coag (Bld) [Relative time] 1.02 {INR} Normal 0.85-1.13 [facility] Comment on above: Result Comment: ---- -----INDICATION INR Reference Range DVT, PE, AF, AMI, tissue heart valve 2.0 to 3.0 Mechanical prosthetic valves 2.5 to 3.5 Performed By: #### P OCGL #### [facility] [address] [place] [address] Protime-INRon 07-06-2024 INR Coag (PPP) [Relative time] 1.02 {INR} 0.85 - 1.13 [facility] [employer] Comment on above: ---------INDICATION- INR Reference Range DVT, PE, AF, AMI, tissue heart valve 2.0 to 3.0 Mechanical prosthetic valves 2.5 to 3.5 Performed at [facility] [address] [place] [address] aPTT Coag (Bld) [Time]on aPTT Coag (PPP) [Time] 29.5 s Jaylan n [employer] Comment on above: Therapeutic Heparin Reference Range= 60-95 seconds (corresponds to 0.3 to 0.7 u/mL Anti-Xa factor activity) Performed at [facility] [address] [place] [address] [employer] Estimated glomerular filtrat ion rate (GFR) non- Americanon 06-27-2024 GFR/1.73 sq M.predicted among non-blacks MDRD (S/P/Bld) [Vol rate/Area] Estimated glomerular filtration rate (GFR) non- Low >=60 mL/min/1.73 m 2 [facility] - Chemistry and C hemistry - challengeon 06-27-2024 Calcium [Mass/Vol] 9.8 mg/dL 8.5-10.1 [facility] Chloride [Moles/Vol] 101 mmol/L 98-107 [facility] CO2 [Moles/Vol] 28.6 mmol/L 21.0-32.0 [facility] Creatinine [Mass/Vol] 1.41 mg/dL High 0.55-1.02 [facility] GFR/1.73 sq M.predicted MDRD (S/P/Bld) [Vol rate/Area] 45 mL/min/{1.73_m2} Low >=60 mL/min/1.73 m 2 [facility] Glucose [Mass/Vol] 66 mg/dL Low 74-106 [facility] Potassium [Moles/Vol] 5.1 mmol/L 3.5-5.1 [facility] Sodium [Moles/Vol] 139 mmol/L 136-145 [facility] Urea nitrogen [Mass/Vol] 29.0 mg/dL High 7.0-18.0 [facility] Urea nitrogen/Creatinine [Mass ratio] 20.6 mg/mg [facility] Bilirubin Ql (U) LARGE Abnormal NEGATIVE [facility] Glucose (U) [Mass/Vol] Negative NEGATIVE [facility] Ketones Ql (U) TRACE mg/dL Abnormal NEGATIVE [facility] pH (U) 5.5 [pH] 5.0-9.0 [facility] Specific gravity (U) [Rel density] 1.025 1.005-1.025 [facility] Urobilinogen Qn (U) 0.2 {Nela'U}/dL 0.2-1.0 [facility] - Specimen inform ationon 06-27-2024 Appearance (U) CLEAR CLEAR [facility] Color (U) YELLOW YELLOW [facility] - Urinalysison Leukocyte esterase Test strip Ql (U) Negative NEGATIVE [facility] Nitrite Ql (U) Negative NEGATIVE [facility] Protein Ql (U) Negative NEG/TRACE [facility] No Panel Informationon 06-27 Urine Microscopic Review NO [facility] Urine Occult Blood Negative NEGATIVE [facility] Serum or plasma anion gap de terminationon 06-27-2024 Anion gap [Moles/Vol] Serum or plasma an ion gap determination [facility] No Panel Informationon 06-01 Miscellaneous Test COMMENT . [facility] Comment on above: Test Ordered: [id number] Aerobic Cult, Extended IncubAerobic Cult, Extended Incub [...] STetracycline STrimethoprim/Sulfa SVancomycin SPerformed at: - [facility] [address] [id number] Director: Noam Haskins PhD, Phone: [phone] Basophils Auto (Bld) [#/Vol] on 05-31-2024 Basophils (Bld) [#/Vol] Automated basophil count 0.0-0.1 [facility] Basophils/100 WBC Auto (Bld) on 05-31-2024 Basophils/100 WBC (Bld) Automated basophil % 0.2-2.0 [facility] Eosinophils/100 WBC Auto (Bl d)on 05-31-2024 Eosinophils/100 WBC (Bld) Automated eosinophil % 0.9-7.0 [facility] Erythrocyte distribution wid th Auto (RBC) [Ratio]on 05-31-2024 Erythrocyte distribution width (RBC) [Ratio] Erythrocyte distribution width [Ratio] by Automated count 11.0-15.0 [facility] Hematocrit Auto (Bld) [Volum e fraction]on 05-31-2024 Hematocrit (Bld) [Volume fraction] Hematocrit [Volume Fraction] of Blood by Automated count 36.0-48.0 [facility] Hemoglobin [Mass/volume] in Bloodon 05-31-2024 Hemoglobin (Bld) [Mass/Vol] Hemoglobin [Mass/volume] in Blood 12.0-16.0 [facility] - Hematology and Cell countson 05-31-2024 ESR (Bld) [Velocity] 7 mm/h <=30 [facility] Immature granulocytes/100 WBC (Bld) 0.2 % 0.0-0.5 [facility] Leukocytes [#/volume] correc chip for nucleated erythrocytes in Blood by Automated counon 05-31-2024 WBC corrected for nucl RBC Auto (Bld) [#/Vol] Leukocytes [#/volume] corrected for nucleated erythrocytes in Blood by Automated coun 4.0-11.0 [facility] Lymphocytes Auto (Bld) [#/Vo l]on 05-31-2024 Lymphocytes (Bld) [#/Vol] Lymphocytes [#/volume] in Blood by Automated count 1.2-3.8 [facility] Lymphocytes/100 WBC Auto (Bl d)on 05-31-2024 Lymphocytes/100 WBC (Bld) Lymphocytes/100 leukocytes in Blood by Automated count 20.5-60.0 [facility] MCH Auto (RBC) [Entitic mass ]on 05-31-2024 MCH (RBC) [Entitic mass] MCH [Entitic mass] by Automated count 26.7-34.0 [facility] MCHC Auto (RBC) [Mass/Vol]on 05-31-2024 MCHC (RBC) [Mass/Vol] MCHC [Mass/volume] by Automated count 29.9-35.2 [facility] MCV Auto (RBC) [Entitic vol] on 05-31-2024 MCV (RBC) [Entitic vol] MCV [Entitic volume] by Automated count 81.0-99.0 [facility] Monocytes Auto (Bld) [#/Vol] on 05-31-2024 Monocytes (Bld) [#/Vol] Automated blood monocyte count 0.3-0.8 [facility] Monocytes/100 WBC Auto (Bld) on 05-31-2024 Monocytes/100 WBC (Bld) Automated monocyte % 1.7-12.0 [facility] Neutrophils Auto (Bld) [#/Vo l]on 05-31-2024 Neutrophils (Bld) [#/Vol] Neutrophils [#/volume] in Blood by Automated count 1.4-6.5 [facility] Neutrophils/100 WBC Auto (Bl d)on 05-31-2024 Neutrophils/100 WBC (Bld) Automated neutrophil % 43.0-75.0 [facility] No Panel Informationon 02-06 -2025 C-Reactive Protein, Quantitative <0.50 mg/dL <=0.50 [facility] Eosinophils # (Auto) 0.1 10 3/uL 0.0-0.7 Fir [facility] Immature Granulocyte # (Auto) 0.01 10 3/uL 0.00-0.03 [facility] Platelet mean volume Auto (B ld) [Entitic vol]on 05-31-2024 Platelet mean volume (Bld) [Entitic vol] Platelet mean volume [Entitic volume] in Blood by Automated count Low 9.5-13.5 [facility] Platelets Auto (Bld) [#/Vol] on 05-31-2024 Platelets (Bld) [#/Vol] Platelets [#/volume] in Blood by Automated count 150-450 [facility] RBC Auto (Bld) [#/Vol]on RBC (Bld) [#/Vol] Erythrocytes [#/volume] in Blood by Automated count 4.20-5.40 [facility] Basophils Auto (Bld) [#/Vol] on 12-27-2023 Basophils (Bld) [#/Vol] 0.1 10 3/uL 0.0-0.1 [facility] Basophils/100 WBC Auto (Bld) on 12-27-2023 Basophils/100 WBC (Bld) 1.0 % 0.2-2.0 [facility] Cholesterol in LDL Calc [Mas s/Vol]on 12-27-2023 Cholesterol in LDL [Mass/Vol] 63.0 mg/dL [facility] Comment on above: <100 mg/dl [id number] 0-129 mg/dl NEAR OR ABOVE [id number] mg/dl BORDERLINE [id number] mg/dl HIGH>190 mg/dl VERY HIGH Cholesterol in VLDL Calc [Ma ss/Vol]on 12-27-2023 Cholesterol in VLDL [Mass/Vol] 45.8 mg/dL [facility] Eosinophils/100 WBC Auto (Bl d)on 12-27-2023 Eosinophils/100 WBC (Bld) 8.3 % High 0.9-7.0 [facility] Erythrocyte distribution wid th Auto (RBC) [Ratio]on 12-27-2023 Erythrocyte distribution width (RBC) [Ratio] 11.9 % 11.0-15.0 [facility] Estimated glomerular filtrat ion rate (GFR) non- Americanon 12-27-2023 GFR/1.73 sq M.predicted among non-blacks MDRD (S/P/Bld) [Vol rate/Area] 47 mL/min/{1.73_m2} Low >=60 [facility] Globulin Calc (S) [Mass/Vol] on 12-27-2023 Globulin (S) [Mass/Vol] 3.2 g/dL [facility] Glucose mean value [Mass/vol ume] in Blood Estimated from glycated hemoglobinon 12-27-2023 Average glucose Estimated from glycated hemoglobin (Bld) [Mass/Vol] 143 mg/dL [facility] Hematocrit Auto (Bld) [Volum e fraction]on 12-27-2023 Hematocrit (Bld) [Volume fraction] 39.7 % 36.0-48.0 [facility] Hemoglobin [Mass/volume] in Bloodon 12-27-2023 Hemoglobin (Bld) [Mass/Vol] 12.9 g/dL 12.0-16.0 [facility] Laboratory - Chemistry and C hemistry - challengeon 12-27-2023 Albumin [Mass/Vol] 3.7 g/dL 3.4-5.0 [facility] ALP [Catalytic activity/Vol] 61 U/L 46-116 [facility] ALT [Catalytic activity/Vol] 36 U/L 14-59 [facility] AST [Catalytic activity/Vol] 24 U/L 15-37 [facility] Bilirubin [Mass/Vol] 0.6 mg/dL 0.2-1.0 [facility] Calcium [Mass/Vol] 9.2 mg/dL 8.5-10.1 [facility] Chloride [Moles/Vol] 101 mmol/L 98-107 [facility] Cholesterol [Mass/Vol] 146 mg/dL <=200 [facility] Cholesterol in HDL [Mass/Vol] 38 mg/dL Low 40-60 [facility] Comment on above: > or =60 mg/dl - LOW CARDIOVASCULAR RISK<40 mg/dl - HIGH CARDIOVASCULAR RISK CO2 [Moles/Vol] 26.8 mmol/L 21.0-32.0 [facility] Creatinine [Mass/Vol] 1.17 mg/dL High 0.55-1.02 [facility] GFR/1.73 sq M.predicted MDRD (S/P/Bld) [Vol rate/Area] 56 mL/min/{1.73_m2} Low >=60 [facility] Glucose [Mass/Vol] 138 mg/dL High 74-106 [facility] Potassium [Moles/Vol] 4.5 mmol/L 3.5-5.1 [facility] Protein [Mass/Vol] 6.9 g/dL 6.4-8.2 [facility] Sodium [Moles/Vol] 138 mmol/L 136-145 [facility] Triglyceride [Mass/Vol] 229 mg/dL High <=150 [facility] TSH Qn 0.834 m[IU]/L 0.358-3.740 [facility] Urea nitrogen [Mass/Vol] 23.0 mg/dL High 7.0-18.0 [facility] Urea nitrogen/Creatinine [Mass ratio] 19.7 mg/mg [facility] Laboratory - Hematology and Cell countson 12-27-2023 HbA1c (Bld) [Mass fraction] 6.6 % High 4.5-6.2 [facility] Comment on above: ADA RECOMMENDED LIMI T 4.0 - 6.0ADA THERAPEUTIC TARGET < 7.0ACTION SUGGESTED> 7.0 Immature granulocytes/100 WBC (Bld) 0.4 % 0.0-0.5 [facility] Leukocytes [#/volume] correc chip for nucleated erythrocytes in Blood by Automated counon 12-27-2023 WBC corrected for nucl RBC Auto (Bld) [#/Vol] 5.2 10 3/uL 4.0-11.0 [facility] Lymphocytes Auto (Bld) [#/Vo l]on 12-27-2023 Lymphocytes (Bld) [#/Vol] 2.2 10 3/uL 1.2-3.8 [facility] Lymphocytes/100 WBC Auto (Bl d)on 12-27-2023 Lymphocytes/100 WBC (Bld) 42.1 % 20.5-60.0 [facility] MCH Auto (RBC) [Entitic mass ]on 12-27-2023 MCH (RBC) [Entitic mass] 28.5 pg 26.7-34.0 [facility] MCHC Auto (RBC) [Mass/Vol]on 12-27-2023 MCHC (RBC) [Mass/Vol] 32.5 g/dL 29.9-35.2 [facility] MCV Auto (RBC) [Entitic vol] on 12-27-2023 MCV (RBC) [Entitic vol] 87.8 fL 81.0-99.0 [facility] Monocytes Auto (Bld) [#/Vol] on 12-27-2023 Monocytes (Bld) [#/Vol] 0.3 10 3/uL 0.3-0.8 [facility] Monocytes/100 WBC Auto (Bld) on 12-27-2023 Monocytes/100 WBC (Bld) 6.4 % 1.7-12.0 [facility] Neutrophils Auto (Bld) [#/Vo l]on 12-27-2023 Neutrophils (Bld) [#/Vol] 2.2 10 3/uL 1.4-6.5 [facility] Neutrophils/100 WBC Auto (Bl d)on 12-27-2023 Neutrophils/100 WBC (Bld) 41.8 % Low 43.0-75.0 [facility] No Panel Informationon 12-26 Eosinophils # (Auto) 0.4 10 3/uL 0.0-0.7 [facility] Immature Granulocyte # (Auto) 0.02 10 3/uL 0.00-0.03 [facility] Platelet mean volume Auto (B ld) [Entitic vol]on 12-27-2023 Platelet mean volume (Bld) [Entitic vol] 9.6 fL 9.5-13.5 [facility] Platelets Auto (Bld) [#/Vol] on 12-27-2023 Platelets (Bld) [#/Vol] 190 10 3/uL 150-450 [facility] RBC Auto (Bld) [#/Vol]on RBC (Bld) [#/Vol] 4.52 10 6/uL 4.20-5.[address] [facility] Serum or plasma albumin/glob ulin mass ratioon 12-27-2023 Albumin/Globulin [Mass ratio] 1.2 {ratio} [facility] Serum or plasma anion gap de terminationon 12-27-2023 Anion gap [Moles/Vol] 14.7 mmol/L [facility] Serum or plasma total choles terol/high density lipoprotein (HDL) cholesterol mass desiree 12-27-2023 Cholesterol.total/Chol esterol in HDL [Mass ratio] 3.8 {ratio} [facility] Comment on above: 3.3 - 4.4 LOW [...] BERNY QUISPE Date: 2022-08-24 07:19 Normal [facility] CBC AUTO DIFFon 03-30-2022 BASO # 0.0 103/ul Normal 0.0-0.1 [facility] Comment on above: Performed By: #### C BC #### [facility] [address] [place] [address] Dr. Rc Foster Basophils/100 WBC (Bld) 0.4 % Normal 0.2-2.0 [facility] Comment on above: Performed By: #### C BC #### [facility] [address] [place] [address] Dr. Rc Foster EO # 0.3 103/ul Normal 0.0-0.7 [facility] Comment on above: Performed By: #### C BC #### [facility] [address] [place] [address] Dr. Rc Foster Eosinophils/100 WBC (Bld) 4.9 % Normal 0.9-7.0 [facility] Comment on above: Performed By: #### C BC #### [facility] [address] [place] [address] Dr. Rc Foster Erythrocyte distribution width (RBC) [Ratio] 12.2 % Normal 11.0-15.0 [facility] Comment on above: Performed By: #### C BC #### [facility] [address] [place] [address] Dr. Rc Foster Hematocrit (Bld) [Volume fraction] 39.8 % Normal 36.0-48.0 [facility] Comment on above: Performed By: #### C BC #### [facility] [address] [place] [address] Dr. Rc Foster Hemoglobin (Bld) [Mass/Vol] 13.1 g/dL Normal 12.0-16.0 [facility] Comment on above: Performed By: #### C BC #### [facility] [address] [place] [address] Dr. Rc Foster IG # 0.02 10e3/ul Normal 0.00-0.03 [facility] Comment on above: Performed By: #### C BC #### [facility] [address] [place] [address] Dr. Rc Foster IG % 0.4 % Normal 0.0-0.5 [facility] Comment on above: Performed By: #### C BC #### [facility] [address] [place] [address] Dr. Rc Foster LYMPH # 2.1 103/ul Normal 1.2-3.8 [facility] Comment on above: Performed By: #### C BC #### [facility] [address] [place] [address] Dr. Rc Foster Lymphocytes/100 WBC (Bld) 37.1 % Normal 20.5-60.0 [facility] Comment on above: Performed By: #### C BC #### [facility] [address] [place] [address] Dr. Rc Foster MANUAL DIFF REQ NO Normal [facility] Comment on above: Performed By: #### C BC #### [facility] [address] [place] [address] Dr. Rc Foster MCH (RBC) [Entitic mass] 28.7 pg Normal 26.7-34.0 [facility] Comment on above: Performed By: #### C BC #### [facility] [address] [place] [address] Dr. Rc Foster MCHC (RBC) [Mass/Vol] 32.9 g/dL Normal 29.9-35.2 [facility] Comment on above: Performed By: #### C BC #### [facility] [address] [place] [address] Dr. Rc Foster MCV (RBC) [Entitic vol] 87.1 fL Normal 81.0-99.0 [facility] Comment on above: Performed By: #### C BC #### [facility] [address] [place] [address] Dr. Rc Foster MONO # 0.4 103/ul Normal 0.3-0.8 [facility] Comment on above: Performed By: #### C BC #### [facility] [address] [place] [address] Dr. Rc Foster Monocytes/100 WBC (Bld) 6.7 % Normal 1.7-12.0 [facility] Comment on above: Performed By: #### C BC #### [facility] [address] [address] [address] Rc Foster NEUT # 2.9 103/ul Normal 1.4-6.5 [facility] Comment on above: Performed By: #### C BC #### [facility] [address] [address] [address] Rc Foster Neutrophils/100 WBC (Bld) 50.5 % Normal 43.0-75.0 [facility] Comment on above: Performed By: #### C BC #### [facility] [address] [address] [address] Rc Foster Platelet mean volume (Bld) [Entitic vol] 9.7 fL Normal 9.5-13.5 [facility] Comment on above: Performed By: #### C BC #### [facility] [address] [place] [address] Dr. Rc Foster PLT 189 103/ul Normal 150-450 [facility] Comment on above: Performed By: #### C BC #### [facility] [address] [place] [address] Dr. Rc Foster RBC 4.57 106/ul Normal 4.20-5.40 [facility] Comment on above: Performed By: #### C BC #### [facility] [address] [place] [address] Dr. Rc Fosetr WBC 5.7 103/ul Normal 4.0-11.0 [facility] Comment on above: Performed By: #### C BC #### [facility] [address] [place] [address] Dr. Rc Foster GLYCOHEMOGLOBIN A1Con 2021 ADA RECOMMENDATION SEE BELOW Normal [facility] Comment on above: Result Comment: ADA RECOMMENDED LIMIT 4.0 - 6.0 ADA THERAPEUTIC TARGET < 7.0 ACTION SUGGESTED > 7.0 Performed By: #### A 1C #### [facility] [address] [place] [address] Dr. Rc Foster Glucose [Mass/Vol] 143 mg/dL Normal [facility] Comment on above: Performed By: #### A 1C #### [facility] [address] [place], [place] [address] Dr. Rc Foster HbA1c (Bld) [Mass fraction] 6.6 % Critically high 4.5-6.2 [facility] Comment on above: Performed By: #### A 1C #### [facility] [address] [place], [place] [address] Dr. Rc Foster LIPID PROFILEon 03-30-2022 CHOL-HDL RATIO NORM SEE BELOW Normal [facility] Comment on above: Result Comment: 3.3 - 4.4 LOW RISK 4.4 - 7.1 AVERAGE RISK 7.1 - 11.0 MODERATE RISK >11.0 HIGH RISK Performed By: #### T MARY JANE, CMP, LIPID ####[facility] [address] [place], [place] [address]MsRodger Foster Cholesterol [Mass/Vol] 184 mg/dL Normal <=200 [facility] Comment on above: Performed By: #### T MARY JANE, CMP, LIPID ####[facility] [address] [place], [place] [address]XaRodger Foster Cholesterol in HDL [Mass/Vol] 42 mg/dL Normal 40-60 [facility] Comment on above: Performed By: #### T MARY JANE, CMP, LIPID ####[facility] [address] [place], [place] [address]Jy. Rc Foster Cholesterol in LDL [Mass/Vol] 87.0 mg/dL Normal [facility] Comment on above: Performed By: #### T MARY JANE, CMP, LIPID ####[facility] [address] [place], [place] [address]BaRodger Foster Cholesterol.total/Chol esterol in HDL [Mass ratio] 4.4 {ratio} Normal [facility] Comment on above: Performed By: #### T MARY JANE, CMP, LIPID ####[facility] [address] [place], [place] [address]OcRodger Foster HDL NORMAL > or = 60 mg/dl - LO W CARDIOVASCULAR RISK <40 mg/dl - HIGH CARDIOVASCULAR RISK Normal [facility] Comment on above: Performed By: #### T SH, CMP, LIPID ####[facility] [address] [place] [address]Dr. Rc Foster LDL CALC NORMAL SEE BELOW Normal [facility] Comment on above: Result Comment: <100 mg/dl OPTIMAL 100 - 129 mg/dl NEAR OR ABOVE OPTIMAL 130 - 159 mg/dl BORDERLINE HIGH 160 - 189 mg/dl HIGH >190 mg/dl VERY HIGH Performed By: #### T SH, CMP, LIPID ####[facility] [address] [place] [address]Dr. Rc Foster Triglyceride [Mass/Vol] 275 mg/dL Critically high <=150 [facility] Comment on above: Performed By: #### T MARY JANE, CMP, LIPID ####[facility] [address] [place] [address]Dr. Rc Foster VLDL CALC 55.0 mg/dL Normal [facility] Comment on above: Performed By: #### T MARY JANE, CMP, LIPID ####[facility] [address] [place] [address]Dr. Rc Foster PROF 14(COMP METB)on 022 Albumin [Mass/Vol] 4.0 g/dL Normal 3.4-5.[address] [facility] Comment on above: Performed By: #### T MARY JANE, CMP, LIPID ####[facility] [address] [place] [address]Dr. Rc Foster Albumin/Globulin [Mass ratio] 1.1 {ratio} Normal [facility] Comment on above: Performed By: #### T MARY JANE, CMP, LIPID ####[facility] [address] [place] [address]Dr. Rc Foster ALP [Catalytic activity/Vol] 71 U/L Normal 46-116 [facility] Comment on above: Performed By: #### T SH, CMP, LIPID ####[facility] [address] [place] [address]Dr. Rc Foster ALT [Catalytic activity/Vol] 29 U/L Normal 14-59 [facility] Comment on above: Performed By: #### T SH, CMP, LIPID ####[facility] [address] [place] [id number]. Rc Foster Anion gap [Moles/Vol] 13.2 mmol/L Normal Th [facility] Comment on above: Performed By: #### T SH, CMP, LIPID ####[facility] [address] [place] [id number]. Rc Foster AST [Catalytic activity/Vol] 17 U/L Normal 15-37 [facility] Comment on above: Performed By: #### T SH, CMP, LIPID ####[facility] [address] [place] [id number]. Rc Foster Bilirubin [Mass/Vol] 0.6 mg/dL Normal 0.2-1.0 [facility] Comment on above: Performed By: #### T SH, CMP, LIPID ####[facility] [address] [place] [address]Dr. Rc Foster Calcium [Mass/Vol] 9.0 mg/dL Normal 8.5-10.[address] [facility] Comment on above: Performed By: #### T SH, CMP, LIPID ####[facility] [address] [place] [id number]. Rc Foster Chloride [Moles/Vol] 102 mmol/L Normal 98-107 [facility] Comment on above: Performed By: #### T SH, CMP, LIPID ####[facility] [address] [place] [phone]. Rc Foster CO2 [Moles/Vol] 27.3 mmol/L Normal 21.0-32.0 [facility] Comment on above: Performed By: #### T SH, CMP, LIPID ####[facility] [address] [place] [phone]. Rc Foster Creatinine [Mass/Vol] 1.00 mg/dL Normal 0.55-1.02 [facility] Comment on above: Performed By: #### T SH, CMP, LIPID ####[facility] [address] [place] [phone]. Rc Foster EGFR-AF KYRGYZ >60 Normal >=60 [facility] Comment on above: Performed By: #### T SH, CMP, LIPID ####[facility] [address] [place] [address]Dr. Rc Foster EGFR-NON AF KYRGYZ 56 mL/min/1.73m2 Critically low >=60 [facility] Comment on above: Performed By: #### T SH, CMP, LIPID ####[facility] [address] [place] [address]Dr. Rc Foster Globulin (S) [Mass/Vol] 3.5 g/dL Normal [facility] Comment on above: Performed By: #### T SH, CMP, LIPID ####[facility] [address] [place] [address]Dr. Rc Foster Glucose [Mass/Vol] 159 mg/dL Critically high 74-[address] [facility] Comment on above: Performed By: #### T SH, CMP, LIPID ####[facility] [address] [place] [address]Dr. Rc Foster Potassium [Moles/Vol] 4.5 mmol/L Normal 3.5-5.1 [facility] Comment on above: Performed By: #### T SH, CMP, LIPID ####[facility] [address] [place], [place] [address]Dr. Rc Foster Protein [Mass/Vol] 7.5 g/dL Normal 6.4-8.2 [facility] Comment on above: Performed By: #### T SH, CMP, LIPID ####[facility] [address] [place] [address]Dr. Rc Foster Sodium [Moles/Vol] 138 mmol/L Normal 136-145 [facility] Comment on above: Performed By: #### T SH, CMP, LIPID ####[facility] [address] [place] [address]Dr. Rc Foster Urea nitrogen [Mass/Vol] 23.0 mg/dL Critically high 7.0-18.0 [facility] Comment on above: Performed By: #### T SH, CMP, LIPID ####[facility] [address] [place], [place] [address]Wb. Rc Foster Urea nitrogen/Creatinine [Mass ratio] 23.0 mg/mg Normal [facility] Comment on above: Performed By: #### T MARY JANE, CMP, LIPID ####[facility] [address] [place], [place] [address]Zp. Rc Foster TSHon 03-30-2022 TSH 2.807 uIU/mL Normal 0.358-3.740 [facility] Comment on above: Performed By: #### T SH, CMP, LIPID ####[facility] [address] [place], [place] [address]Ma. Rc Foster US THYROIDon 03-30-2022 US THYROID [...] BERNY QUISPE Date: 2022-03-30 11:03 Normal [facility] MG MAMM SCREEN 3D LEX CADon 03-19-2022 MG MAMM SCREEN 3D LEX CAD Patient: CARROLL FUENTES Exam Date: 03/19/2022 : 1960 Gender:F Ordering : DR ROBERT VILLASENOR D.O. Admission #: [id number] Family : Order #: [id number] CLICK HERE TO VIEW EXAM RADIOLOGY REPORT [...] Treatments None Family Cancers None LOCATION: [facility] BREAST COMPOSITION: Scattered areas fibroglandular density. [...] M.D. on 03/23/2022 at 11:59 Normal [facility] CBC AUTO DIFFon 11-27-2021 BASO # 0.0 103/ul Normal 0.0-0.1 [facility] Comment on above: Performed By: #### C BC #### [facility] [address] [address] [address] Rc Foster Basophils/100 WBC (Bld) 0.7 % Normal 0.2-2.0 [facility] Comment on above: Performed By: #### C BC #### [facility] [address] [address] [address] Rc Foster EO # 0.6 103/ul Normal 0.0-0.7 [facility] Comment on above: Performed By: #### C BC #### [facility] [address] [address] [address] Rc Foster Eosinophils/100 WBC (Bld) 10.3 % Critically high 0.9-7.0 [facility] Comment on above: Performed By: #### C BC #### [facility] [address] [place] [address] Dr. Rc Foster Erythrocyte distribution width (RBC) [Ratio] 12.4 % Normal 11.0-15.0 [facility] Comment on above: Performed By: #### C BC #### [facility] [address] [place] [address] Dr. Rc Foster Hematocrit (Bld) [Volume fraction] 41.2 % Normal 36.0-48.0 [facility] Comment on above: Performed By: #### C BC #### [facility] [address] [place] [address] Dr. Rc Foster Hemoglobin (Bld) [Mass/Vol] 13.4 g/dL Normal 12.0-16.0 [facility] Comment on above: Performed By: #### C BC #### [facility] [address] [place] [address] Dr. Rc Foster IG # 0.01 10e3/ul Normal 0.00-0.03 [facility] Comment on above: Performed By: #### C BC #### [facility] [address] [place] [address] Dr. Rc Foster IG % 0.2 % Normal 0.0-0.5 [facility] Comment on above: Performed By: #### C BC #### [facility] [address] [place] [address] Dr. Rc Foster LYMPH # 2.3 103/ul Normal 1.2-3.8 [facility] Comment on above: Performed By: #### C BC #### [facility] [address] [place] [address] Dr. Rc Foster Lymphocytes/100 WBC (Bld) 40.6 % Normal 20.5-60.0 [facility] Comment on above: Performed By: #### C BC #### [facility] [address] [place] [address] Dr. Rc Foster MANUAL DIFF REQ NO Normal [facility] Comment on above: Performed By: #### C BC #### [facility] [address] [address] [address] Rc Foster MCH (RBC) [Entitic mass] 28.8 pg Normal 26.7-34.0 [facility] Comment on above: Performed By: #### C BC #### [facility] [address] [place] [address] Dr. Rc Foster MCHC (RBC) [Mass/Vol] 32.5 g/dL Normal 29.9-35.2 [facility] Comment on above: Performed By: #### C BC #### [facility] [address] [place] [address] Dr. Rc Foster MCV (RBC) [Entitic vol] 88.6 fL Normal 81.0-99.0 [facility] Comment on above: Performed By: #### C BC #### [facility] [address] [place] [address] Dr. Rc Foster MONO # 0.4 103/ul Normal 0.3-0.8 [facility] Comment on above: Performed By: #### C BC #### [facility] [address] [place] [address] Dr. Rc Foster Monocytes/100 WBC (Bld) 7.6 % Normal 1.7-12.0 [facility] Comment on above: Performed By: #### C BC #### [facility] [address] [place] [address] Dr. Rc Foster NEUT # 2.3 103/ul Normal 1.4-6.5 [facility] Comment on above: Performed By: #### C BC #### [facility] [address] [place] [address] Dr. Rc Foster Neutrophils/100 WBC (Bld) 40.6 % Critically low 43.0-75.0 [facility] Comment on above: Performed By: #### C BC #### [facility] [address] [place] [address] Dr. Rc Foster Platelet mean volume (Bld) [Entitic vol] 9.6 fL Normal 9.5-13.5 [facility] Comment on above: Performed By: #### C BC #### [facility] [address] [address] [address] Rc Foster PLT 194 103/ul Normal 150-450 [facility] Comment on above: Performed By: #### C BC #### [facility] [address] [address] [address] Rc Foster RBC 4.65 106/ul Normal 4.20-5.40 [facility] Comment on above: Performed By: #### C BC #### [facility] [address] [address] [address] Rc Foster WBC 5.5 103/ul Normal 4.0-11.0 [facility] Comment on above: Performed By: #### C BC #### [facility] [address] [place] [address] Dr. Rc Foster GLYCOHEMOGLOBIN A1Con 2021 ADA RECOMMENDATION SEE BELOW Normal [facility] Comment on above: Result Comment: ADA RECOMMENDED LIMIT 4.0 - 6.0 ADA THERAPEUTIC TARGET < 7.0 ACTION SUGGESTED > 7.0 Performed By: #### A 1C #### [facility] [address] [place] [address] Dr. Rc Foster Glucose [Mass/Vol] 131 mg/dL Normal [facility] Comment on above: Performed By: #### A 1C #### [facility] [address] [place] [address] Dr. Rc Foster HbA1c (Bld) [Mass fraction] 6.2 % Normal 4.5-6.2 [facility] Comment on above: Performed By: #### A 1C #### [facility] [address] [place] [address] Dr. Rc Foster PROF CHEM 8 (BAS METB)on Anion gap [Moles/Vol] 15.2 mmol/L Normal [facility] Comment on above: Performed By: #### T SH, BMP #### [facility] [address] [place] [address] Dr. Rc Foster Calcium [Mass/Vol] 8.5 mg/dL Normal 8.5-10.[address] [facility] Comment on above: Performed By: #### T SH, BMP #### [facility] [address] [address] [address] Rc Foster Chloride [Moles/Vol] 100 mmol/L Normal 98-107 [facility] Comment on above: Performed By: #### T SH, BMP #### [facility] [address] [address] [address] Rc Foster CO2 [Moles/Vol] 26.6 mmol/L Normal 21.0-32.0 [facility] [place] Comment on above: Performed By: #### T SH, BMP #### [facility] [address] [address] [address] Rc Foster Creatinine [Mass/Vol] 1.15 mg/dL Critically high 0.55-1.02 [facility] Comment on above: Performed By: #### T SH, BMP #### [facility] [address] [place] [address] Dr. Rc Foster EGFR-AF KYRGYZ 58 mL/min/1.73m2 Critically low >=60 [facility] Comment on above: Performed By: #### T SH, BMP #### [facility] [address] [place] [address] Dr. Rc Foster EGFR-NON AF KYRGYZ 48 mL/min/1.73m2 Critically low >=60 [facility] Comment on above: Performed By: #### T SH, BMP #### [facility] [address] [address] [address] Rc Foster Glucose [Mass/Vol] 211 mg/dL Critically high 74-[address] [facility] Comment on above: Performed By: #### T SH, BMP #### [facility] [address] [address] [address] Rc Foster Potassium [Moles/Vol] 4.8 mmol/L Normal 3.5-5.1 [facility] Comment on above: Performed By: #### T SH, BMP #### [facility] [address] [address] [address] Rc Foster Sodium [Moles/Vol] 137 mmol/L Normal 136-[address] [facility] Comment on above: Performed By: #### T SH, BMP #### [facility] [address] [address] [address] Rc Foster Urea nitrogen [Mass/Vol] 33.0 mg/dL Critically high 7.0-18.0 [facility] Comment on above: Performed By: #### T SH, BMP #### [facility] [address] [address] [address] Rc Foster Urea nitrogen/Creatinine [Mass ratio] 28.7 mg/mg Normal [facility] Comment on above: Performed By: #### T SH, BMP #### [facility] [address] [address] [address] Rc Foster TSHon 11-27-2021 TSH 0.744 uIU/mL Normal 0.358-3.740 [facility] Comment on above: Performed By: #### T SH, BMP #### [facility] [address] [address] [address] Rc Foster SYMPTOMATIC COVID-19 ANTIGEN on 10-28-2021 EUA Statement SEE BELOW Normal [facility] Comment on above: Result Comment: [...] revoked sooner. Performed By: #### C VDAGS ####[facility] [address] [id number]. Rc Foster SARS-CoV-2 (COVID-19) RNA YARED+probe Ql (Unsp spec) Negative Normal NEGATIVE [facility] Comment on above: Performed By: #### C VDAGS ####[facility] [address] [place], [place] [address]RbDr. Rc Foster GLYCOHEMOGLOBIN A1Con 2021 ADA RECOMMENDATION SEE BELOW Normal [facility] Comment on above: Result Comment: ADA RECOMMENDED LIMIT 4.0 - 6.0 ADA THERAPEUTIC TARGET < 7.0 ACTION SUGGESTED > 7.0 Performed By: #### A 1C #### [facility] [address] [address] [address] Rc Foster Glucose [Mass/Vol] 128 mg/dL Normal [facility] Comment on above: Performed By: #### A 1C #### [facility] [address] [address] [address] Rc Foster HbA1c (Bld) [Mass fraction] 6.1 % Normal 4.5-6.2 [facility] Comment on above: Performed By: #### A 1C #### [facility] [address] [address] [address] Rc Foster Discharge CCD Assessmenton 0 09-06-2020 Discharge CCD Assessment [facility] Patient: CARROLL FUENTES [address] [place] [address] MR#: [id number] DISCHARGE CCD ASSESSMENT : 58 Service Date: 09/06/20 1018 Discharge CCD Assessment Assessment Patient discharged home to continue exercises, pain medication, and wound care Electronically Signed eSign Date and Time Melyssa Flores 09/06/20 1019 Tera Hernandez MD Normal [facility] GLUCOSE METERon 09-06-2020 Glucose [Mass/Vol] 126 mg/dL High 70-99 [facility] Comment on above: Order Comment: CONSE RVATION Result Comment: Fast ing GLUCOSE reference range has been updated per (ADA) [place] Diabetes Association's recommendation. 07/18/2018 Performed By: #### L 500.78606 ####Test performed at: [place] [address] Glucose [Mass/Vol] 205 mg/dL High 70-99 [facility] Comment on above: Order Comment: CONSE RVATION Result Comment: Fast ing GLUCOSE reference range has been updated per (ADA) [place] Diabetes Association's recommendation. 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 S/P cervical [...] RES, Katarzyn a MD 09/06/20 1134 Normal [facility] Orthopedic Progress Noteon 0 09-06-2020 Orthopedic Progress Note [facility] Patient: CARROLL FUENTES [address] [place] [address] MR#: [id number] PROGRESS NOTE - Orthopedic : 58 Service [...] RN 09/06/20 1022 Tera Hernandez MD Normal [facility] Anesthesia Noteon 09-05-2020 Anesthesia Note [facility] Patient: CARROLL FUENTES [address] [place] [address] MR#: [id number] ANESTHESIA NOTE : Service Date: 09/05/20 0812 [...] Signed eSign Date and Time Krystian Akers FLIGHT COMMUNICATIONS OFFICER-NURSES' ASSOCIATION COUNSELOR 09/05/20 0813 Chu Glez MD Normal [facility] BASIC MET PANELon 05-14-2021 Anion gap [Moles/Vol] 12 mmol/L Normal 6-18 [facility] Comment on above: Performed By: #### L 500.51796, L500.23383 #### Test performed at: [address] [address] Calcium [Mass/Vol] 8.7 mg/dL Normal 8.5-10.1 [facility] Comment on above: Performed By: #### L 500.41167, L500.02544 #### Test performed at: [address] [address] Chloride [Moles/Vol] 101 mmol/L Normal 98-107 [facility] Comment on above: Performed By: #### L 500.04511, L500.90896 #### Test performed at: [address] [address] CO2 [Moles/Vol] 25 mmol/L Normal 21-32 [facility] Comment on above: Performed By: #### L 500.39791, L500.22014 #### Test performed at: [address] [address] Creatinine [Mass/Vol] 1.020 mg/dL Normal 0.550-1.020 [facility] Comment on above: Performed By: #### L 500.15248, L500.85902 #### Test performed at: [address] [address] Glucose [Mass/Vol] 264 mg/dL High 70-99 [facility] Comment on above: Result Comment: Fast ing GLUCOSE reference range has been updated per (ADA) [place] Diabetes Association's recommendation. 07/18/2018 Performed By: #### L 500.49550, L500.35590 #### Test performed at: [address] [address] OSM 289 mosm/kg Normal 270-300 [facility] Comment on above: Performed By: #### L 500.25227, L500.03128 #### Test performed at: [address] [address] Potassium [Moles/Vol] 4.5 mmol/L Normal 3.5-5.1 [facility] Comment on above: Performed By: #### L 500.11002, L500.93662 #### Test performed at: [address] [address] Sodium [Moles/Vol] 134 mmol/L Low 136-145 [facility] Comment on above: Performed By: #### L 500.26736, L500.32182 #### Test performed at: [address] [address] Urea nitrogen [Mass/Vol] 17 mg/dL Normal 7-18 [facility] Comment on above: Performed By: #### L 500.70558, L500.28665 #### Test performed at: [address] [address] GFR ESTIMATEon 09-05-2020 IF AMER > 60 Normal > 60 [facility] Comment on above: Result Comment: eGFR (Estimated GFR) Units of measure:mL/min/1.73 meters sq. *CALCULATION REVISED 02/11/2015;IDMS-traceable MDRD equation eGFR is derived from the reexpressed MDRD Study equation using the following parameters: serum creatinine, age, gender and race. An eGFR<60 mL/min/1.73m2 for >3 months is consistent with chronic kidney disease. Refer to KDOQI guidelines for clinical interpretation. Performed By: #### L 500.52180, L500.64481 #### Test performed at: [address] [address] IF non-AFR AMER 55 Low > 60 [facility] Comment on above: Performed By: #### L 500.01827, L500.84395 #### Test performed at: [address] [address] GLUCOSE METERon 09-05-2020 Glucose [Mass/Vol] 177 mg/dL High 70-99 [facility] Comment on above: Order Comment: CONSE RVATION Result Comment: Fast ing GLUCOSE reference range has been updated per (ADA) [place] Diabetes Association's recommendation. 07/18/2018 Performed By: #### L 500.10035 #### Test performed at: [address] [address] Glucose [Mass/Vol] 310 mg/dL High 70-99 [facility] Comment on above: Result Comment: Fast ing GLUCOSE reference range has been updated per (ADA) [place] Diabetes Association's recommendation. 07/18/2018 Insulin per sl scale Performed By: #### L 500.10822 ####Test performed at: [address] [address] Glucose [Mass/Vol] 281 mg/dL High 70-99 [facility] Comment on above: Result Comment: Fast ing GLUCOSE reference range has been updated per (ADA) [place] Diabetes Association's recommendation. 07/18/2018 Insulin per sl scale Performed By: #### L 500.44331 #### Test performed at: [address] [address] Glucose [Mass/Vol] 105 mg/dL High 70-99 [facility] Comment on above: Result Comment: Fast ing GLUCOSE reference range has been updated per (ADA) [place] Diabetes Association's recommendation. 07/18/2018 Performed By: #### L 500.87945 #### Test performed at: [address] [address] HGB AND HCTon 09-05-2020 Hematocrit (Bld) [Volume fraction] 37.5 % Normal 36.0-48.0 [facility] Comment on above: Performed By: #### L 200.82270 #### Test performed at: [address] [place] [place] [address] Hemoglobin (Bld) [Mass/Vol] 12.5 g/dL Normal 12.0-15.0 [facility] Comment on above: Performed By: #### L 200.84043 #### Test performed at: [place] [address] Internal Med Progress Noteon 09-05-2020 Internal Med Progress Note [facility] Patient: CARROLL FUENTES [address] [place] [address] MR#: [id number] PROGRESS NOTE - Internal Medicine : 58 [...] 12.5 Hct (36.0 - 48.0 %) 37.5 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 S/P cervical [...] input. Disc (more content not included)... Normal [facility] OT Therapy Recommendationson 09-05-2020 OT Therapy Recommendations [facility] Patient: CARROLL FUENTES [address] [place] [address] MR#: [id number] OT THERAPY RECOMMENDATIONS : 58 Service Date: 09/05/20 151 Therapy Recommendations Therapy Recommendations Recommendations OT evaluation completed. OT recommends HOME with FAmily assist. No further acute OT needs are indicated at this time. Electronically Signed eSign Date and Time Trupti Rojas OT 09/05/20 151 Normal [facility] Orthopedic Progress Noteon 0 09-05-2020 Orthopedic Progress Note [facility] Patient: CARROLL FUENTES [address] [place] [address] MR#: [id number] PROGRESS NOTE - Orthopedic : 58 Service [...] KHAN 09/05/20 1429 Tera Hernandez MD Normal [facility] PT Therapy Recommendationson 09-05-2020 PT Therapy Recommendations [facility] Patient: CARROLL FUENTES [address] [place] [address] MR#: [id number] PT THERAPY RECOMMENDATIONS : 58 Service Date: 05/14/21 0914 Therapy Recommendations Therapy Recommendations Recommendations PT eval complete. No further acute PT needs. Recommend d/c home /c family assist. Electronically Signed eSign Date and Time Tiffanie Bashir PT 09/05/20 0914 Normal [facility] z OT Inpatient Discharge Not juan 09-05-2020 z OT Inpatient Discharge Note [facility] Patient: CARROLL FUENTES [address] [place], [place] [id number] MR#: [id number] OT INPATIENT DISCHARGE NOTE : 58 Service [...] Time Trupti Rojas OT 09/05/20 1534 Normal [facility] z OT Inpatient Evaluationon 09-05-2020 z OT Inpatient Evaluation [facility] Patient: CARROLL FUENTES [address] [id number] MR#: [id number] OT INPATIENT EVALUATION : 58 Inpatient OT HPI Date of Service 09/05/20 Time In: 1401 Time Out: 1412 Total Treatment Time (Mins) 11 Visit Reason LATERAL RECESS STENOSIS W/ RADICULOPATHY Surgery Type/Date s/p L L4-5 LAmi, foraminotomy, decompression on 09.04.20/ Lumbar spine precautions Referral Date 09/04/20 Tx Diagnosis: LOW BACK PAIN Insurance Name [employer] [facility] POS [facility] Hospital Course Pt is a [...] 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 Objective Precautions [...] Excellent Nader (more content not included)... Normal [facility] z PT Inpatient Discharge Not juan 09-05-2020 z PT Inpatient Discharge Note [facility] Patient: CARROLL FUENTES [address] [place] [address] MR#: [id number] PT INPATIENT DISCHARGE NOTE : 58 Service [...] Time Tiffanie Bashir PT 09/05/20 1139 Normal [facility] z PT Inpatient Evaluationon 09-05-2020 z PT Inpatient Evaluation [facility] Patient: CRAROLL FUENTES [address] [place], [place] [id number] MR#: [id number] PT INPATIENT EVALUATION : 58 Service Date: 09/05/20 0928 Inpatient PT HPI Date of Service 09/05/20 Time In: 0845 Time Out: 0907 Total Treatment Time (Mins) 22 Room Number 624 Visit Reason LATERAL RECESS STENOSIS W/ RADICULOPATHY Surgery Type: L L4-5 lami, foraminotomy, decompression Surgery Date: 09/04/20 Referral Date 09/04/20 Tx Diagnosis: LOW BACK PAIN Insurance Name RAMIRO VERASO POS [facility] Hospital Course 60 y.o female at [facility] [...] posture. 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 Pt agreeable to use of her [...] Time Tiffanie Bashir PT 09/05/20 1502 Normal [facility] GLUCOSE METERon 09-04-2020 Glucose [Mass/Vol] 94 mg/dL Normal 70-99 [facility] Comment on above: Result Comment: Fast ing GLUCOSE reference range has been updated per (ADA) [place] Diabetes Association's recommendation. 07/18/2018 Performed By: #### L 500.02540 ####Test performed at: [place] [address] Internal Medicine Consultati onon 09-04-2020 Internal Medicine Consultation [facility] Patient: CARROLL FUENTES [address] [place] [address] MR#: [id number] CONSULTATION - Internal Medicine : 58 Service [...] Last Action: Reviewed on 09/04/20 105 by RAIAS CABELLO tiZANidine HCl * (Zanaflex *) 4 [...] of Systems (more content not included)... Normal [facility] OPERATIVE REPORTon OPERATIVE REPORT NAME: CARROLL FUENTES MR#: [id number] SURGEON: Tera Hernandez MD DATE OF SURGERY: [...] no complications. TERA HERNANDEZ MD [facility] PT NAME: CARROLL FUENTES MR#: [id number] [address] [place] [address] ACCT: [id number] : 58 OPERATIVE REPORT JFS/[id number] E/S: Tera Hernandez MD 09/18/[address] [facility] PT NAME: CARROLL FUENTES MR#: [id number] [address] [place] [address] ACCT: [id number] : 58 OPERATIVE REPORT Normal [facility] Primary Residenton [address] [facility] Pt Name: CARROLL FUENTES MR#: [id number] [address] [place] [address] ACCT: [id number] [place] [id number] : 58 Service Date: 09/04/20 1603 Primary Resident/Call Primary Resident: [id number] [place] After Hours Call: [phone] Red Team Electronically Signed eSign Date and Time Ana Flanagan RES 09/16/20 1521 Normal [facility] LUMBAR SPINE 2 OR 3 VIEWSon 09-03-2020 LUMBAR SPINE 2 OR 3 VIEWS STUDY: LUMBAR SPINE 2 OR 3 VIEWS; 09/04/2020 2:57 pm INDICATION: LEFT L4-L5 LAMINECTOMY,FORAMINOTO MY,DECOMPRESSION. COMPARISON: None. ACCESSION NUMBER(S): [id number] ORDERING CLINICIAN: Tera Hernandez FINDINGS: Intraoperative fluoroscopy of the lumbar spine demonstrates surgical instruments posterior to L5. IMPRESSION: As above Normal [facility] CHEST PA/AP & LATERALon CHEST PA/AP & LATERAL STUDY: CHEST PA/AP LATERAL; 08/25/2020 11:00 am INDICATION: SOB/PAT. COMPARISON: None. ACCESSION NUMBER(S): [id number] ORDERING CLINICIAN: Madelyn Leone FINDINGS: The lungs are clear without pleural effusion. Normal heart size, mediastinum, elzbieta, and pulmonary vasculature. IMPRESSION: No active disease in the chest. Normal [facility] CONSULTATION REPORTon 2020 CONSULTATION REPORT NAME: CARROLL FUENTES MR#: [id number] HOG SCRAPER: Madelyn Leone MD DATE OF CONSULTATION: 08/25/2020 [...] is 98% on room air. [facility] PT NAME: CARROLL FUENTES MR#: [id number] [address] [place] [address] ACCT: [id number] : 58 CONSULTATION HEENT: Atraumatic head. Pupils [...] are getting the results from her manager plan in [place]. IMPRESSION: 1. Preop clearance for L4-L5 disk [...] courtesy of this consultation. MADELYN LEONE MD MS/[id number] E/S: Madelyn Leone MD 08/26/[address] [facility] PT NAME: CARROLL FUENTES MR#: [id number] [address] [place] [address] ACCT: [id number] : 58 CONSULTATION Normal [facility] LUMB SP COMP W FLEX/EXT 6 VW S>on 08-08-2020 LUMB SP COMP W FLEX/EXT 6 VWS> STUDY: LUMB SP COMP W FLEX/EXT 6 VWS>; 08/08/2020 9:43 am INDICATION: BACK PAIN. COMPARISON: No available comparisons. ACCESSION NUMBER(S): [id number] ORDERING CLINICIAN: Tera Hernandez TECHNIQUE: 6 views [...] L5-S1 level. No evidence of instability.. Normal [facility] XR SHLDR >/=3V AP/RUSH AP/OTH R [...] on Jul 03 2018 10:17AM EST [id number] [facility] ANES Holly 06-20-2018 ANES POST HNO ID: [id number] Author: Rohit Velarde Service: Anesthesiology Author Type: [...] 20, 2018 TIME: 2:38 PM PAGER/CONTACT #: [facility] ANES PREOPon 06-20-2018 ANES PREOP HNO ID: [id number] Author: Rohit Velarde Service: Anesthesiology Author Type: [...] June 20, 2018 TIME: 9:35 AM CSN: [id number] [facility] BRIEF OP NOTon 06-20-2018 BRIEF OP NOT HNO ID: [id number] Author: Kusum Francisco Service: Orthopaedic Surgery Author Type: Resident Type: Brief Op Note Filed: 06/20/2018 5:49 PM Note Text: BRIEF OP NOTE LOG ID: [id number] Surgery/Procedure Date: 06/20/2018 Incision/Procedure Start Time: 11:18 AM Incision Close/Procedure End Time: 1:17 PM Surgeon(s)/Procedurali st(s) and Medical Numerical Control Operator(s): Surgeon(s) and Role: * Jenna Garsia [...] 20, 2018 TIME: 5:49 PM PAGER/CONTACT #: [facility] CASE MANAGEMon 06-20-2018 CASE MANAGEM HNO ID: [id number] Author: May Herrera (Sw) Service: Care Management Author Type: Supervisor Newspaper Deliveries Type: Care Mgt Progress Note Filed: 06/20/2018 [...] is pcp summary of care sent via [employer] () Nurse to provide discharge instructions. TRANSPORTATION ARRANGEMENTS: Car Spouse ADDITIONAL CONTACT RESOURCES: Needs Prior to Discharge: Ready for Discharge Appointments for Next 45 Days Date Time Provider Location Dept Phone 07/03/2018 10:00 AM CAROLA BAPTISTE AT [phone] 07/03/2018 10:30 AM GABRIEL CANTU) LATOSHA AT [phone] 07/31/2018 2:15 PM JENNA GARSIA AT [phone] Pt to be discharged home to follow up as above. SIGNATURE: DARIO Saini PATIENT NAME: Carroll Fuentes DATE: June 20, 2018 TIME: 5:31 PM PAGER/CONTACT #: [phone] [facility] CASE MGT [facility] 2018 CASE MGT INIT [facility] HNO ID: [id number] Author: May Herrera (Sw) Service: Care Management Author Type: Supervisor Newspaper Deliveries Type: Care Mgt Initial Assessment Filed: 06/20/2018 5:31 PM Note Text: CARE MANAGEMENT: ASSESSMENT AND DISCHARGE PLAN SERVICE DATE: 06/20/2018 SERVICE TIME: 5:27p PRIMARY CARE PHYSICIAN: Robert Villasenor MD ADMISSION STATUS: Inpatient Needs Prior to Discharge: Ready for Discharge 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. O.Therapy recommend home. Spouse visiting at bedside and will transport pt home later today.Further discharge needs not anticipated.SW/TCC to follow to assist with plans for discharge. SIGNATURE: DARIO Saini PATIENT NAME: Carroll Fuentes DATE: June 20, 2018 TIME: 5:27 PM PAGER/CONTACT #: [phone] [facility] CONSULTon 06-20-2018 CONSULT HNO ID: [id number] Author: Dulce Green Service: General Internal Medicine [...] Disp: Rfl: 06/19/2018 at 0630 rizatriptan (MAXALT SCREW MACHINE OPERATOR SINGLE SPINDLE) 10 mg disintegrating tablet DISSOLVE 1 TABLET [...] the care of your patient. Dulce Green APRN.SPEECH PATHOLOGY ASSISTANT June 20, 2018 4:34 PM [facility] NURSING PROGon 06-20-2018 Protein mass conc HNO ID: [id number] Author: Fela (Rn) FLETCHER Phililps Service: (none) Author Type: Registered Nurse Type: Nursing Progress Note Filed: 06/20/2018 7:39 PM Note Text: Nursing Progress Note Patient Name: Carroll Fuentes [facility]/ [place]-* __ Daily Note: 1545. Care assumed. Pt [...] at bedside. 1720. Dr. Meeks and Dulce DRY PLASTERER at bedside, plan is to stay for [...] note was completed by: Fela Phillips RN [facility] Protein mass conc HNO ID: [id number] Author: Wendy (Rn) FLETCHER Underwood Service: Nursing Author Type: Registered Nurse Type: Nursing Progress Note Filed: 06/20/2018 10:20 AM Note Text: Nursing Progress Note Patient Name: Carroll Fuentes Patient Location: SURGERY [facility]/ S* __ Daily Note:Right interscalene nerve block with ultrasound guidance with Dr. Velarde and Dr. Marlow at bedside. Patient tolerated procedure well, VSS, will continue to monitor as we wait for OR team. Resting comfortably with no complaints of pain at this time. This note was completed by: Wendy Underwood RN [facility] OPERATIVE NOon 06-20-2018 OPERATIVE NO HNO ID: [id number] Author: Jenna Garsia Service: Orthopaedic Surgery Author Type: Physician Type: Operative Report Filed: 06/20/2018 1:25 PM Note Text: [place] [id number] [place] OPERATIVE REPORT NAME: Carroll Fuentes [facility] #: [id number] DATE: 06/20/2018 (11:18am-1:17pm) AGE: 58 SURGEON 1: Jenna Garsia M.D. HEATING WORKER: 1. Augie Coates M.D. 2. Kusum Prasad M.D. 3. Mundo Pablo OPERATION: Right total shoulder arthroplasty, biceps tenodesis. ANESTHESIA: General anesthesia with regional interscalene nerve block for postoperative pain control. PREOPERATIVE DIAGNOSIS: Right shoulder primary glenohumeral osteoarthritis. POSTOPERATIVE DIAGNOSIS: Right shoulder primary glenohumeral osteoarthritis, biceps tendinopathy. OPERATIVE INDICATIONS: The patient is a 58 year [id number] right-hand dominant white female who has a [...] rotator interval stitch was then passed in yvfjjy-oy-rshsz fashion with a #2 Ticron suture and tied down to close the lateral rotator interval and set the osteotomy superiorly. The two #2 Fiberwire sutures coming out of the bicipital groove were then sequentially passed in a lznjzb-wr-wojyf fashion medial to the horizontal mattress and [...] of the incision was performed by Augie Caotes M.D., Kusum Prasad M.D., and Mundo Pablo, with the primary surgeon (Jenna Garsia M.D.) readily available. The remainder of the procedure, including all critical elements, was completed by the primary surgeon (Jenna Garsia M.D.) with assistance from Augie Coates M.D., and Kusum Prasad M.D. ESTIMATED BLOOD LOSS: 150 cc DRAINS: none SPECIMENS: none COMPLICATIONS: none apparent Jenna Garsia M.D. [facility] PT EDon 06-20-2018 PT ED HNO ID: [id number] Author: Cindy (Rn) FLETCHER Griffin Service: (none) [...] By: Cindy Griffin RN In Department: [facility] SURG[facility] THERAPY NTon 06-20-2018 THERAPY NT HNO ID: [id number] Author: Abi ValenciaOtTyesha Phillips Service: Occupational Therapy Author Type: Occupational Therapist Type: Therapy (PT/OT/Speech/Resp) Filed: 06/20/2018 4:59 PM Note Text: Occupational Therapy Evaluation SERVICE DATE: 06/20/2018 SERVICE TIME: 1550 to 1640 ROOM: [address] Recommended Discharge Disposition: Home Anticipated Discharge [...] daily living (ADL) Interventions Provided: Evaluation;Therapeutic Exercise (27761);Self Intermediate Management (23915) $ Evaluation-Low (06807) Billed Units: 1 unit Therapeutic Exercise (49094) Treatment Minutes: 10 1 unit Skilled Intervention(s): Education in Self Intermediate Management (20668) Treatment Minutes: 28 2 units Skilled Intervention(s): [...] Environment Patient Lives With: Spouse 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 Number Of Stairs To Bed/Bath: 0 [...] DATE: June 20, 2018 TIME: 4:54 PM [facility] XR SHOULDER 2V AP/TRUE AP [...] Jun 20 2018 2:04PM EST [id number] Normal [facility] NURSING PROGon 06-09-2018 Protein mass conc HNO ID: [id number] Author: Ivana (Rn) FLETCHER Heller Service: Nursing [...] RN June 15, 2018 4:39 PM Normal [facility] Type and SCR (30D)on 019 ABO/RH(D) Positive Normal [facility] HOSPon 04-28-2018 HOSP Patient:Dahm,Patrici a MRN: Height:5' 2 (1.575 m) Weight:186 lb (84.369 kg) Outpatient Medications as of 06/20/18: calcium phosphate dibas/vit D3 (VITAMIN D, WITH CALCIUM, ORAL) docusate sodium (COLACE) 100 mg capsule aspirin, enteric coated (ECOTRIN LOW STRENGTH) 81 mg EC tablet oxyCODONE-acetaminophe n (PERCOCET) 5-325 mg tablet rizatriptan (MAXALT SCREW MACHINE OPERATOR SINGLE SPINDLE) 10 mg disintegrating tablet mupirocin (BACTROBAN) 2 [...] Progress Notes (RADIO CT SCAN [facility]): RT Lillian, Tech 06/07/2018 [...] RT Lillian June 07, 2018 9:54 AM [facility] Vital Signs Date Time Vital Sign Value Performing Clinician Facility 01-23-2025 11:48-0400 Body height 154.94 cm Robert Ball DO Work Phone: [facility] 01-23-2025 11:48-0400 Body mass index (BMI) [Ratio] 31.8 kg/m2 Robert Ball DO Work Phone: [facility] 01-23-2025 11:48-0400 Body weight 76.37 kg Robert Ball DO Work Phone: [facility] 01-23-2025 11:48-0400 Diastolic blood pressure 76 mm[Hg] Robert Ball DO Work Phone: [facility] 01-23-2025 11:48-0400 Heart rate 68 /min Robert Ball DO Work Phone: [facility] 01-23-2025 11:48-0400 Respiratory rate 12 /min Robert Ball DO Work Phone: [facility] 01-23-2025 11:48-0400 Systolic blood pressure 120 mm[Hg] Robert Ball DO Work Phone: [facility] 11-28-2024 13:37-0400 Body height 154.94 cm Robert Ball DO Work Phone: [facility] 11-28-2024 13:37-0400 Body mass index (BMI) [Ratio] 31.8 kg/m2 Robert Ball DO Work Phone: [facility] 11-28-2024 13:37-0400 Body weight 76.43 kg Robert Ball DO Work Phone: [facility] 11-28-2024 13:37-0400 Diastolic blood pressure 72 mm[Hg] Robert Ball DO Work Phone: [facility] 11-28-2024 13:37-0400 Heart rate 77 /min Robert Ball DO Work Phone: [facility] 11-28-2024 13:37-0400 Respiratory rate 12 /min Robert Ball DO Work Phone: [facility] 11-28-2024 13:37-0400 Systolic blood pressure 107 mm[Hg] Robert Ball DO Work Phone: [facility] 10-11-2024 10:42-0400 Body height 154.94 cm Robert Ball DO Work Phone: [facility] 10-11-2024 10:42-0400 Body mass index (BMI) [Ratio] 31.8 kg/m2 Robert Ball DO Work Phone: [facility] 10-11-2024 10:42-0400 Body weight 76.31 kg Robert Ball DO Work Phone: [facility] 10-11-2024 10:42-0400 Diastolic blood pressure 69 mm[Hg] Robert Ball DO Work Phone: [facility] 10-11-2024 10:42-0400 Heart rate 66 /min Robert Ball DO Work Phone: [facility] 10-11-2024 10:42-0400 Respiratory rate 12 /min Robert Ball DO Work Phone: [facility] 10-11-2024 10:42-0400 Systolic blood pressure 103 mm[Hg] Robert Ball DO Work Phone: [facility] 09-12-2024 15:22-0400 Body height 154.94 cm Robert Ball DO Work Phone: [facility] 09-12-2024 15:22-0400 Body mass index (BMI) [Ratio] 32.3 kg/m2 Robert Ball DO Work Phone: [facility] 09-12-2024 15:22-0400 Body weight 77.79 kg Robert Ball DO Work Phone: [facility] 09-12-2024 15:22-0400 Diastolic blood pressure 79 mm[Hg] Robert Ball DO Work Phone: [facility] 09-12-2024 15:22-0400 Heart rate 69 /min Robert Ball DO Work Phone: [facility] 09-12-2024 15:22-0400 Respiratory rate 12 /min Robert Ball DO Work Phone: [facility] 09-12-2024 15:22-0400 Systolic blood pressure 133 mm[Hg] Robert Ball DO Work Phone: [facility] 07-25-2024 09:00-0400 Diastolic blood pressure 79 mm[Hg] [facility] 07-25-2024 09:00-0400 Heart rate 66 /min [facility] 07-25-2024 09:00-0400 Respiratory rate 12 /min [facility] 07-25-2024 09:00-0400 Systolic blood pressure 161 mm[Hg] [facility] 07-18-2024 10:47-0400 Body height 154.94 cm [facility] 07-18-2024 10:47-0400 Body mass index (BMI) [Ratio] 32.8 kg/m2 [facility] 07-18-2024 10:47-0400 Body weight 78.95 kg [facility] 07-18-2024 10:47-0400 Diastolic blood pressure 74 mm[Hg] [facility] 07-18-2024 10:47-0400 Heart rate 68 /min [facility] 07-18-2024 10:47-0400 Respiratory rate 12 /min [facility] 07-18-2024 10:47-0400 Systolic blood pressure 134 mm[Hg] [facility] 07-13-2024 10:11-0400 Body height 154.94 cm [facility] 07-13-2024 10:11-0400 Body mass index (BMI) [Ratio] 32.9 kg/m2 [facility] 07-13-2024 10:11-0400 Body weight 79.01 kg [facility] 07-13-2024 10:11-0400 Diastolic blood pressure 77 mm[Hg] [facility] 07-13-2024 10:11-0400 Heart rate 65 /min [facility] 07-13-2024 10:11-0400 Respiratory rate 12 /min [facility] 07-13-2024 10:11-0400 Systolic blood pressure 117 mm[Hg] [facility] 07-11-2024 08:30-0400 Body temperature 98.6 [degF] Jose Sharif MD Work Phone: [facility] 07-11-2024 08:30-0400 Diastolic blood pressure 62 mm[Hg] Jose Sharif MD Work Phone: [facility] [employer] 07-11-2024 08:30-0400 Heart rate 88 /min [facility] 07-11-2024 08:30-0400 Respiratory rate 16 /min Jose Sharif MD Work Phone: [facility] [employer] 07-11-2024 08:30-0400 SaO2% (BldA) [Mass fraction] 98 % Jose Sharif MD Work Phone: [facility] [employer] 07-11-2024 08:30-0400 Systolic blood pressure 117 mm[Hg] Jose Sharif MD Work Phone: [facility] [employer] 07-06-2024 20:16-0400 Body height 154.9 cm Jose Sharif MD Work Phone: [facility] 07-06-2024 20:16-0400 Body mass index (BMI) [Ratio] 33.07 kg/m2 Jose Sharif MD Work Phone: [facility] 07-06-2024 20:16-0400 Body weight 79.38 kg Jose Sharif MD Work Phone: [facility] 07-04-2024 15:04-0400 Body height 154.94 cm [facility] 07-04-2024 15:04-0400 Body mass index (BMI) [Ratio] 32.9 kg/m2 [facility] 07-04-2024 15:04-0400 Body weight 79.06 kg [facility] 07-04-2024 15:04-0400 Diastolic blood pressure 79 mm[Hg] [facility] 07-04-2024 15:04-0400 Heart rate 69 /min [facility] 07-04-2024 15:04-0400 Respiratory rate 12 /min [facility] 07-04-2024 15:04-0400 Systolic blood pressure 177 mm[Hg] [facility] 06-25-2024 10:11-0500 Body temperature 97.3 [degF] [facility] 06-25-2024 10:11-0500 Diastolic blood pressure 76 mm[Hg] [facility] 06-25-2024 10:11-0500 Heart rate 54 /min [facility] 06-25-2024 10:11-0500 Respiratory rate 16 /min [facility] 06-25-2024 10:11-0500 SaO2% (BldA) [Mass fraction] 98 % [facility] 06-25-2024 10:11-0500 Systolic blood pressure 119 mm[Hg] [facility] 06-25-2024 10:07-0500 Body height 154.94 cm [facility] 06-25-2024 10:07-0500 Body mass index (BMI) [Ratio] 32.9 kg/m2 [facility] 06-25-2024 10:07-0500 Body weight 79.15 kg [facility] 02-24-2024 14:13-0400 Body height 154.94 cm [facility] 02-24-2024 14:13-0400 Body mass index (BMI) [Ratio] 33.1 kg/m2 [facility] 02-24-2024 14:13-0400 Body temperature 96 [degF] [facility] 02-24-2024 14:13-0400 Body weight 79.6 kg [facility] 02-24-2024 14:13-0400 Diastolic blood pressure 84 mm[Hg] [facility] 02-24-2024 14:13-0400 Heart rate 66 /min [facility] 02-24-2024 14:13-0400 Systolic blood pressure 159 mm[Hg] [facility] 12-20-2023 15:35-0400 Body height 154.94 cm [facility] 12-20-2023 15:35-0400 Body mass index (BMI) [Ratio] 33.8 kg/m2 [facility] 12-20-2023 15:35-0400 Body weight 81.19 kg [facility] 12-20-2023 15:35-0400 Diastolic blood pressure 80 mm[Hg] [facility] 12-20-2023 15:35-0400 Heart rate 78 /min [facility] 12-20-2023 15:35-0400 Respiratory rate 12 /min [facility] 12-20-2023 15:35-0400 Systolic blood pressure 134 mm[Hg] [facility] 04-29-2023 09:00-0500 Body height 154.94 cm Robert Ball Other [employer] Other 04-29-2023 09:00-0500 Body mass index (BMI) [Ratio] 33.14 kg/m2 Robert Ball Other [employer] Other 04-29-2023 09:00-0500 Body weight 79.56 kg Robert Ball Other [employer] Other 04-29-2023 09:00-0500 Diastolic blood pressure 89 mm[Hg] Robert Ball Other [employer] Other 04-29-2023 09:00-0500 Respiratory rate 12 /min Robert Ball Other [employer] Other 04-29-2023 09:00-0500 Systolic blood pressure 155 mm[Hg] Robert Ball Other [employer] Other 12-20-2022 13:45-0400 Body height 154.94 cm Robert Ball Other [employer] Other 12-20-2022 13:45-0400 Body mass index (BMI) [Ratio] 34.12 kg/m2 Robert Ball Other [employer] Other 12-20-2022 13:45-0400 Body weight 81.92 kg Robert Ball Other [employer] Other 12-20-2022 13:45-0400 Diastolic blood pressure 96 mm[Hg] Robert Ball Other [employer] Other 12-20-2022 13:45-0400 Respiratory rate 12 /min Robert Ball Other [employer] Other 12-20-2022 13:45-0400 Systolic blood pressure 179 mm[Hg] Robert Ball Other [employer] Other 08-04-2022 09:45-0400 Body height 154.94 cm Robert Ball Other [employer] Other 08-04-2022 09:45-0400 Body mass index (BMI) [Ratio] 33.33 kg/m2 Robert Villasenor Other [employer] Other 08-04-2022 09:45-0400 Body weight 80.02 kg Robert Villasenor Other [employer] Other 08-04-2022 09:45-0400 Diastolic blood pressure 77 mm[Hg] Robert Villasenor Other [employer] Other 08-04-2022 09:45-0400 Respiratory rate 12 /min Robert Villasenor Other [employer] Other 08-04-2022 09:45-0400 Systolic blood pressure 128 mm[Hg] Robert Villasenor Other [employer] Other Encounters Encounter Date Encounter Type Care Provider Facility Start: 01-28-2025 End: 01-28-2025 ambulatory Miriam Barron MD Facility:[facility] Start: 01-23-2025 End: 01-23-2025 ambulatory Robert Villasenor DO Work Phone: [facility] Work Phone: Start: 01-23-2025 End: 01-23-2025 Patient encounter procedure Robert Villasenor DO [facility] Work Phone: Start: 11-28-2024 End: 11-28-2024 ambulatory Robert Villasenor DO Work Phone: [facility] Work Phone: Start: 11-28-2024 End: 11-28-2024 Patient encounter procedure Robert Villasenor DO -[facility] Work Phone: Start: 11-23-2024 End: 11-25-2024 amb[facility] Start: 11-23-2024 End: 11-25-2024 Subsequent hospital visit by physician Tomás Helton DO Work Phone: [facility] MRI Comment on above: Osteoarthritis of ri ght knee, unspecified osteoarthritis type Start: 10-13-2024 Non-patient / Non-visit Robert barnard [employer] [employer] Work Phone: Start: 10-11-2024 End: 10-11-2024 Patient encounter procedure Robert Villasenor [facility] Work Phone: Start: 10-11-2024 End: 10-11-2024 Patient encounter status Robert Villasenor DO [facility] Start: 09-21-2024 Non-patient / Non-visit Robert barnard [employer] [employer] Work Phone: Start: 09-14-2024 Non-patient / [facility]visit [facility] Work Phone: Start: 09-12-2024 End: 09-12-2024 Patient encounter procedure Robert Villasenor [facility] Work Phone: Start: 07-25-2024 End: 07-25-2024 ambulatory [facility] Work Phone: Start: 07-25-2024 End: 07-25-2024 Patient encounter procedure [facility] Physician [facility] Work Phone: Start: 07-18-2024 End: 07-18-2024 ambulatory [facility] Work Phone: Start: 07-18-2024 End: 07-18-2024 Patient encounter procedure [facility] Physician [facility] Work Phone: Start: 07-18-2024 Non-patient / Non-visit [facility] Work Phone: Start: 07-13-2024 End: 07-13-2024 ambulatory [facility] Work Phone: Start: 07-13-2024 End: 07-13-2024 Patient encounter procedure [facility] Physician [facility] Work Phone: Start: 07-12-2024 Non-patient / Non-visit [facility] Physician [facility] Work Phone: Start: 07-11-2024 Non-patient / Non-visit [facility] Physician [facility] Work Phone: Start: 07-06-2024 End: 07-11-2024 Evaluation and management of inpatient Jose Sharif MD Work Phone: [facility] Start: 07-04-2024 End: 07-04-2024 ambulatory [facility] Work Phone: Start: 07-04-2024 End: 07-04-2024 Encounter for other preprocedural examination [facility] Start: 07-04-2024 End: 07-04-2024 Patient encounter procedure [facility] Work Phone: Start: 06-27-2024 Non-patient / Non-visit [facility] Work Phone: Start: 06-25-2024 End: 06-25-2024 ambulatory [facility] Work Phone: Start: 06-25-2024 End: 06-25-2024 Patient encounter procedure [facility] Work Phone: Start: 06-21-2024 ambulatory Raisa New KAUFFMANES [facility] Start: 06-01-2024 Non-patient / Non-visit [facility] Physician [facility] Work Phone: Start: 05-31-2024 Non-patient / Non-visit [facility] Physician [facility] Work Phone: Start: 04-09-2024 End: 04-09-2024 ambulatory Miriam Barron MD Facility: [facility] Start: 02-24-2024 End: 02-24-2024 ambulatory [facility] Work Phone: Start: 02-24-2024 End: 02-24-2024 Patient encounter procedure [facility] Work Phone: Start: 02-22-2024 Non-patient / Non-visit [facility] Physician [facility] Work Phone: Start: 12-27-2023 Non-patient / Non-visit [facility] [employer] Work Phone: Start: 12-20-2023 Patient encounter status [facility] Start: 12-20-2023 End: 12-20-2023 ambulatory [facility] Work Phone: Start: 12-20-2023 End: 12-20-2023 Patient encounter procedure [facility] Physician [facility] Work Phone: Start: 06-01-2023 End: 06-01-2023 ambulatory Robert Villasenor Other [employer] Other Start: 06-01-2023 Telephone encounter Robert Villasenor [facility] Start: 05-13-2023 End: 05-13-2023 ambulatory Robert Villasenor Other [employer] Other Start: 05-13-2023 Telephone encounter Robert Villasenor [facility] Start: 05-09-2023 End: 05-09-2023 ambulatory Robert Villasenor Other [employer] Other Start: 05-09-2023 Telephone encounter Robert Ball [facility] Start: 05-04-2023 End: 05-04-2023 ambulatory Robert Ball Other [employer] Other Start: 05-04-2023 Telephone encounter Robert Ball [facility] Start: 05-02-2023 End: 05-02-2023 ambulatory Robert Ball Other [employer] Other Start: 05-02-2023 Telephone encounter Robert Ball [facility] Start: 04-29-2023 End: 04-29-2023 ambulatory Robert Ball Other [employer] Other Start: 04-29-2023 Office outpatient vi sit 15 minutes Robert Ball [facility] Start: 04-04-2023 End: 04-04-2023 ambulatory Robert Ball Other [employer] Other Start: 04-04-2023 Telephone encounter Robert Ball [facility] Start: 01-24-2023 End: 01-24-2023 ambulatory Robert Ball Other [employer] Other Start: 01-24-2023 Telephone encounter Robert Ball [facility] Start: 12-23-2022 End: 12-23-2022 ambulatory Robert Ball Other [employer] Other Start: 12-23-2022 Telephone encounter Robert Ball [facility] Start: 12-20-2022 End: 12-20-2022 ambulatory Robert Ball Other [employer] Other Start: 12-20-2022 Office outpatient vi sit 15 minutes Robert Ball [facility] Start: 12-17-2022 End: 12-17-2022 ambulatory Robert Ball Other [employer] Other Start: 12-17-2022 Telephone encounter Robert Ball [facility] Start: 11-08-2022 End: 11-08-2022 ambulatory Robert Ball Other [employer] Other Start: 11-08-2022 Telephone encounter Robert Ball [facility] Start: 10-22-2022 End: 10-22-2022 ambulatory Robert Ball Other [employer] Other Start: 10-22-2022 Telephone encounter Robert Ball [facility] Start: 10-13-2022 End: 10-13-2022 ambulatory Robert Ball Other [employer] Other Start: 10-13-2022 Telephone encounter Robert CHAVARRI[facility] Start: 09-27-2022 End: 09-27-2022 ambulatory Robert Villasenor Other [employer] Other Start: 09-27-2022 Telephone encounter [facility] Start: 08-23-2022 End: 08-24-[address] RISHI PARKER Facility:[facility] Start: 08-04-2022 End: 08-04-2022 ambulatory Robert Villasenor Other [employer] Other Start: 08-04-2022 Office outpatient vi sit 25 minutes Robert [facility]or [facility] Start: 04-03-2022 Encounter for genera l adult medical examination without abnormal findings DR ROBERT VILLASENOR [facility] Start: 03-30-2022 End: 03-31-2022 ambulatory [...] End: 07-03-2018 Patient encounter procedure [facility] Start: 06-20-2018 End: 06-20-2018 Evaluation and management of inpatient [facility] Procedures Date Procedure Procedure Detail Performing [...] 60 yrs+ (1 - 1-dose 75+ series) [employer] Start: 07-11-2025 GFR test (Diabetes, CKD 3-4, OR last GFR 15-59) GFR test (Diabetes, CKD 3-4, OR last GFR 15-59) [employer] Start: 11-23-2024 Influenza vaccination Flu vaccine (# 1) [employer] Start: 04-25-2024 Annual Wellness Visi t (Medicare Advantage) Annual Wellness Visit (Medicare Advantage) [employer] Start: 12-25-2023 COVID-19 Vaccine ( season) COVID-19 Vaccine ( season) [employer] Start: 2014 Screening for osteoporosis DEXA (modify frequency per FRAX score) [employer] Start: 2009 Pneumococcal 50+ yea rs Vaccine (1 of 1 - PCV) Pneumococcal 50+ years Vaccine (1 of 1 - PCV) [employer] Start: 2009 Shingles vaccine (1 of 2) Shingles vaccine (1 of 2) [facility] [employer] Start: 2004 Screening for malign ant neoplasm of colon [facility] [employer] Start: 1999 Screening for malign ant neoplasm of breast [facility] Start: 1994 Diabetes screen Diabetes screen [facility] [employer] [employer] Start: 1989 Screening for malign ant neoplasm of cervix [facility] [employer] Start: 1980 Screening for malign ant neoplasm of cervix Pap smear [facility] [employer] Start: 1978 DTaP/Tdap/Td vaccine (1 - Tdap) DTaP/Tdap/Td vaccine (1 - Tdap) [facility] [employer] Start: 1978 Pneumococcal 50+ yea rs Vaccine (1 of 2 - PCV) Pneumococcal 50+ years Vaccine (1 of 2 - PCV) [facility] [employer] Start: 1977 Glaucoma screening Diabetic retinal exam [facility] [employer] Start: 1977 Hepatitis C screening Hepatitis C sc reen [facility] [employer] Start: 1977 Urine screening for protein Diabetic Alb to Cr ratio (uACR) test [facility] [employer] Start: 1974 HIV screening HIV screen [facility] [employer] Start: 1971 Depression Screen Depression Screen [facility] [employer] Start: 1969 Diabetic foot examination Diabetic foot exam [facility] [employer] Start: 1969 Hemoglobin A1c measurement A1C test (Diabetic or Prediabetic) [facility] [employer] Start: 1969 Lipid panel Lipids [facility] [employer] End: 07-15-2024 Basic metabolic 2000 panel - Serum or Plasma Basic Metabolic Panel Lab Routine Daily for 1 Weeks starting 07/09/2024 until 07/15/2024, 3 completed [facility] [employer] Comment on above: Daily for [address] arting 07/09/2024 until 07/15/2024, 3 completed Comprehensive metabo lic 1999 panel - Serum or Plasma [facility] Comprehensive metabo lic 1999 panel - Serum or Plasma [facility] Comprehensive metabo lic 1999 panel - Serum or Plasma [facility] Glucose [Mass/volume ] in Serum or Plasma POCT Glucose Point of Care Testing STAT As Needed until discontinued starting 07/06/2024 [employer] Comment on above: As Needed until disc ontinued starting 07/06/2024 Glucose [Mass/volume ] in Serum or Plasma POCT glucose Point of Care Testing Routine 4X Daily (AC & HS) until discontinued starting 07/07/2024, 18 completed [employer] Comment on above: 4X Daily (AC & HS) u ntil discontinued starting 07/07/2024, 18 completed Glucose [Mass/volume ] in Serum or Plasma POCT Glucose Point of Care Testing STAT As Needed until discontinued starting 07/10/2024 [employer] Comment on above: As Needed until disc ontinued starting 07/10/2024 End: 07-15-2024 Hemoglobin and Hematocrit Hemoglobin and Hematocrit Lab Routine Daily for 1 Weeks starting 07/09/2024 until 07/15/2024, 3 completed [employer] Comment on above: Daily for [address] arting 07/09/2024 until 07/15/2024, 3 completed MG Breast - bilatera l Diagnostic [facility] MG Breast - bilatera l Diagnostic [facility] End: 11-23-2024 MR Knee - right WO contrast [employer] Comment on above: 1 Occurrences starti ng 11/23/2024 until 11/23/2024 MR Knee - right WO contrast [facility] Oxygen therapy [[facility]] Initiate Oxygen Therapy Protocol Respiratory Care Routine As Needed until discontinued starting 07/08/2024 [employer]ighter Comment on above: As Needed until disc ontinued starting 07/08/2024 Spirometry panel Incentive jesse metry Respiratory Care Routine Every 2hr while awake until discontinued starting 07/06/2024 [employer] Work Phone: Comment on above: Every 2hr while awak e until discontinued starting 07/06/2024 Spirometry panel Incentive jesse metry Respiratory Care Routine Every 2hr while awake until discontinued starting 07/08/2024 Sighter Comment on above: Every 2hr while awak e until discontinued starting 07/08/2024 US Axilla [facility] US Breast - left limited [facility] Payers Date Payer Category Payer Unknown [id number] 2024 Medicare 2023 Unknown 2022 Blue Cross Blue Shield [id number] 2019 Unknown [id number] 2015 Unknown [id number] 1959 Self-pay [id number] 1959 Unknown [id number] [id number] 93 1959 Unknown [id number] [id number] 93 1959 Unknown [id number] 2.16.840.1.978185.3.579.2.5 93 1959 Unknown [id number] 2.16.840.1.391736.3.579.2.5 93 1959 Unknown [id number] 2.16.840.1.736185.3.579.2.5 93 1959 Unknown [id number] 2.16.840.1.859308.3.579.2.5 93 1959 Unknown [id number] 2.16.840.1.806243.3.579.2.7 27 1959 Unknown [id number] 2.16.840.1.389440.3.579.2.9 3 1959 Unknown [id number] 2.16.840.1.828175.3.579.2.1 74 1959 Unknown [id number] 2.16.840.1.218898.3.579.2.1 96 1959 Unknown [id number] 2.16.840.1.550312.3.579.2.1 96 Medicare Medicare [id number] Unknown [id number] [id number] 93 Unknown MMO [id number] Unknown [facility] PFFS [id number] Social History Date Type Detail Facility Start: 07-06-2024 Sex Assigned At [employer] Other Start: 1960 Sex Assigned At Female [facility] Tobacco smoking stat us NHIS Unknown if ever smoked [facility] Work Phone: Start: 06-04-2012 End: 06-25-2024 Sex Female (finding) [facility] Start: 07-06-2024 End: 10-11-2024 Tobacco smoking status NHIS Never smoked tobacco [employer] Start: 07-06-2024 Tobacco use and exposure Smokeless tobacco non-user [employer] Start: 07-09-2024 Alcoholic beverage intake Lifetime non-drinker (finding) [employer] Start: 07-06-2024 History of Social function Bujbu Has the [employer], [employer], or water [employer] threatened to shut off services in your home in past 12Mo No Sighter (I/We) worried eladio er (my/our) food would run out before (I/we) got money to buy more. Never true [facility] In the past 12 month s, has lack of transportation kept you from medical appointments or from getting medications? No [facility] Start: 1960 Sex assigned at Not on file [facility] Medical Equipment Procedure Code Equipment Code Equipment Original Text Equipment Identifier Dates Screw Spnl L45mm Dia6.5mm Post Thoracolumbosacral Co Chrom - [id number] Start: 07-08-2024 Screw Spnl L40mm Dia6.5mm Post Thoracolumbosacral Co Chrom - [id number] Start: 07-08-2024 Set Scr Spnl L6m m Dia5.5mm Ti Brk Off Svetlana W/ Detach Cdh - [id number] Start: 07-08-2024 Evan Spnl L35mm D ia5.5mm Ant Post Thoracolumbosacral Ti - [id number] Start: 07-08-2024 Clinical Notes 08-04-2022 to [...] mass, left acute January 23, 2025 11:33am [facility] Work Phone: 1(570) 253-444205-21-2025 Evaluation note* Diagnosis Onset Date Resolution Status [...] ve visit noneactive October 11, 2024 10:26am [facility] Work Phone: 1(618) 819-238903-19-2025 History of Present illness Narrative* Bhavani Anderson [...] Stable for dc. F/up orthop as OP. Joes Sharif MD, MD * Berny Lewis, ETHAN [...] Rosales, PT - 07/10/2024 10:18 AM EDT [facility] INPATIENT PHYSICAL THERAPY EVALUATION [facility] [...] or urinary incontinence. 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 Detention Goals Time Frame for Automotive Parts Advisor Goals : NA due to short ELOS Following session, patient left in safe position with all fall risk precautions in place. Pt in bedfollowing session, all needs and call light in reach, alarm on. * America Waters OTA - 07/10/2024 8:30 AM EDT [facility] ORTHOPEDICS 7 Occupational Therapy Daily Note Discharge Recommendations: Home with Home Health OT Equipment Recommendations: No Monitor need for LHAE. Time In: 0800 Time Out: 08 Timed Code Treatment Minutes: 28 Minutes Minutes: 28 Date: 07/10/2024 Patient Name: Carroll Fuentes, Gender: female Room: [address] [place] [address] : 1960 (64 y.o.) Referring Practitioner: Dank [...] or urinary incontinence. 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 Patient pleasant and cooperative throughout session. PAIN: 10/02: Vitals: Vitals not assessed per clinical judgement, see nursing flowsheet COGNITION: WFL ADL: Grooming: Modified Independent. Hair care seated in bedside chair Upper Extremity Dressing: Minimal Assistance. Carroll/doff house robe Lower Extremity Dressing: Minimal Assistance. With rate supervisor in order to carroll/doff hospital shorts with verbal/visual cues to complete, demonstrating good understanding. Footwear Management: Supervision, X 1, with verbal cues , and with increased time for completion. Utilized rate supervisor/sock aid in order to doff/carroll B [...] demonstrate appropriately throughout session. Functional Outcome Measures: [facility] Inpatient Daily Activity Raw Score: 19 ASSESSMENT: [...] Goals?: No Detention Goals Time Frame for Automotive Parts Advisor Goals : No LTGs d/t short estimated [...] Rosales, PT - 07/09/2024 2:49 PM EDT [facility] PHYSICAL THERAPY MISSED TREATMENT NOTE [facility] ORTHOPEDICS 7K Date: 07/09/2024 Patient Name: Carroll Fuentes : 1960 (64 y.o.) Gender: female REASON FOR MISSED TREATMENT: Missed Treat. Attempted x3 today. 1st attempt, pt with tech on BSC and then requesting to eat breakfast. 2nd attempt, OT with pt. 3rd attempt, shoe caser in room to complete assessment. * Angela Dawkins OT - 07/09/2024 1:44 PM EDT [facility] INPATIENT OCCUPATIONAL THERAPY [facility] ORTHOPEDICS [...] or urinary incontinence. 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 Inpatient Daily Activity Raw Score: 17 Modified [...] Goals?: No Detention Goals Time Frame for Automotive Parts Advisor Goals : No LTGs d/t short estimated [...] pain 6/10 at this time, medicated by NURSES' ASSOCIATION COUNSELOR 1840 pt resting, resp easy. VSS 1850 pt awakens to voice, states pain 5/10 and tolerable. VSS 1900 c/o pain 7/10, medicated with 50 mcg fentanyl 1904 no change in pain status, medicated with 50 mcg fentanyl 1909 pt resting, resp easy. VSS 191 pt resting, resp easy. VSS 1924 pt meets criteria for discharge from pacu at this time. [facility] condition * Kusum Conte [...] EDT Spiritual Health History and Assessment/Progress Note [facility] (P) Initial Encounter, , , Name: Carroll Fuentes Age: 64 y.o. Sex: female Language: Maltese Confucianism: Yarsani Intractable back pain Date: 07/07/2024 Total Time [...] and hope in her liliane as a pentecostal and desires to have sacrament of the sick by a flue lining dipper, before her surgery tomorrow afternoon. I told the patient that I will let the spiritual care team know. Offered patient words of encouragement, quoted Scripture, and prayed with the patient, at her request. Patient expressed gratitude. Made patient aware of tobacco hanger availability and support. Patient Interventions include: Facilitated expression of thoughts and feelings, Explored spiritual coping/struggle/distress, Affirmed coping skills/support systems, and Provided sacramental/religiousritual Family/Friends Interventions include: No family/friends present Patient Plan of Care: Contact [place] executive community planning for support or sacramental needs Family/Friends Plan of Care: No family/friends present Electronically signed by Kimberlyn Chapman Bilingual Social Worker Marine Habitat Resource Specialist on 07/07/2024 at 2:02 PM documented in this [facility]Bon [facility] Discharge instructions* Discharge Instructions* Bhavani [...] All vegetables, especially asparagus, pruitt sprouts, broccoli, Amado sprouts, cabbage, carrots, cauliflower, celery, corn, greens, [...] taking more than one drug. This includes poay-nss-mywyhds medication and herb or dietary supplements. Plan [...] and possible side effects [facility] NotePROCEDURE: XR LUMBAR SPINE 1 VW [...] loss of vertebral body height is seen. [facility][id number] NotePROCEDURE: XR LUMBAR SPINE 1 VW CLINICAL [...] Signed by: Sivakumar Betts MD 07/08/24 [facility]SHunt [facility] Evaluation note* Diagnosis Onset Date Resolution Status [...] medicine non eactive July 04, 2024 2:57pm [facility] Work Phone: 1(462) 561-350903-03-2025 Evaluation note* Diagnosis Onset Date Resolution Status [...] h hyperglycemia acute July 04, 2024 2:57pm [facility] Work Phone: 1(353) 975-262303-03-2025 Evaluation note* Diagnosis Onset Date Resolution Status [...] 2024 2:57pm Acute blood loss anemia acute [facility] 2024 9:25am Central stenosis of spinal canal acu te July 13, 2024 9:25am Herniated intervertebral dis c of lumbar spine acute July 13, 2024 9:25am Hypotension due to hypovolemia acute July 13, 2024 9:25am Type 2 diabetes mellitus wit h hyperglycemia acute July 13, 2024 9:25am Acute blood loss anemia acute [facility] 2024 10:08am Adverse effect of mixed sedatives acute July 18, 2024 10:08am Central stenosis of spinal canal acu te July 18, 2024 10:08am Herniated intervertebral dis c of lumbar spine acute July 18, 2024 10:08am Hypotension due to hypovolemia acute July 18, 2024 10:08am Type 2 diabetes mellitus wit h hyperglycemia acute July 18, 2024 10:08am Visual hallucinations acute Jun 10:08am [facility] Work Phone: 1([phone]) 770-157403-03-2025 Evaluation note* Diagnosis Onset Date Resolution Status [...] 10:08am Visual hallucinations acute Jun 2024 10:08am [facility] Work Phone: 1(728) 478-474002-07-2024 Evaluation note* Encounter Date Diagnosis Assessment Notes Treatment Notes Treatment Clinical Notes May, Autoimmune thyroiditis (ICD-10 - E06.3) May, Elevated cholesterol (ICD-10 - E78.00) May, Type 2 diabetes mellitus with hyperglycemia, without long-term current use of insulin (ICD-10 - E11.65) May, Primary hypertension (ICD-10 - I10) May, Intractable chronic migraine without aura and without status migrainosus (ICD-10 - G43.719) [employer] Other 01-15-2024 Evaluation note* Encounter Date Diagnosis Assessment Notes Treatment Notes Treatment Clinical Notes Apr, Intractable chronic migraine without aura and without status migrainosus (ICD-10 - G43.719) [employer] Other 01-08-2024 Evaluation note* Encounter Date Diagnosis Assessment Notes Treatment Notes Treatment Clinical Notes Apr, Intractable chronic migraine without aura and without status migrainosus (ICD-10 - G43.719) [employer] Other 01-05-2024 Evaluation note* Encounter Date [...] Begin Amitriptyline Stop Tizanidine. 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 May want to cut back on [...] Pain in left shoulder (ICD-10 - M25.512) [employer] Other 06-30-2023 Evaluation note* Encounter Date Diagnosis Assessment Notes Treatment Notes Treatment Clinical Notes Sep, Type 2 diabetes mellitus with hyperglycemia, without long-term current use of insulin (ICD-10 - E11.65) [employer] Other 06-05-2023 Evaluation note* Encounter Date Diagnosis Assessment Notes Treatment Notes Treatment Clinical Notes Sep, Candidiasis, intertriginous (ICD-10 - B37.2) [employer] Other 04-12-2023 Evaluation note* Encounter Date [...] Jul, Other specified hypothyroidism (ICD-10 - E03.8) [employer] Other Evaluation noteNo InformationNort Chapatiz Other Evaluation noteNo assessment information available [facility] Work Phone: Evaluation note* Diagnosis Onset Date Resolution Status Cervical pain acute Cervical spondylosis acute Cervical pain acute Cervical spondylosis acute Painful lumpy right breast a cute [facility] Work Phone: Evaluhyaoi note* Diagnosis Intractable back pain- Primary Backache, unspecified Spinal stenosis of lumbar region with neurogenic claudication Spinal stenosis, lumbar region, with neurogenic claudication Primary hypertension Unspecified essential hypertension Type 2 diabetes mellitus, without long-term current use of insulin ([facility]) documented in this encounter [facility] [place] note* Diagnosis Osteoarthritis of right knee, unspecified osteoarthritis type documented in this [facility] N[facility]ative - Reported* Type [...] CATHETERIZATION 2016 Hospitalization History SEE SURIGCAL HX [employer] Other Hisbgek general Narrative - Reported* Type Description Date [...] arthroscopy 10/2022 Hospitalization History SEE SURIGCAL HX [employer] Other Reason for referral (narrative)* Reason Evaluation of right knee pain Diagnosis 1 Strain of right knee , subsequent encounter (S83.647I) Referral Organization [facility] [employer] [facility] bhupinder Referring Provider First Name Robert Referring Provider Last Name Hamilton Referring Provider Specialty Internal Il yoni Referred Provider Rishi Parker Jr Referred Provider Specialty Orthopedic S urgery Referral Priority Routine [employer] Other Reason for referral (narrative)* Reason Referral for neck pa in Diagnosis 1 Cervicalgia (M54.2) Diagnosis 2 Cervical spondylosis (M47.812) Referral Organization [facility] [employer] [facility] bhupinder Referring Provider First Name Robert Referring Provider Last Name Hamilton Referring Provider Specialty Internal Me yoni Referred Organization [facility] Referred Address [address] [place], [place],[address] Referred Provider Specialty Pain Medicin e Referral Priority Routine General Notes Patient has hx of ce rvical discectomy and fusion and presented w/ persistent neck pain, which radiated upwards causing a headache. She is being referred for treatment with the pain clinic. Clinical Notes Include MRI [employer] Other Reason for referral (narrative)No reason for referral information availableJ.W. [facility] Work Phone: Reason for visit Narrative* Auth/Cert Specialty Diagnoses / Procedures Referred By Jass adams Referred To Contact Diagnoses Intractable back pain large disc herniation Kole, Jose Meier MD [address] [place] [address] Phone: tel: fax: Sighter [address] [place] [address] Referral ID Status Reason Start Date Expiration Date Visits Re quested Visits Authorized [id number] 1 1 SighterReason for visit Narrative* Imaging (Routine) - Closed Specialty Diagnoses / Procedures Referred By Contac t Referred To Contact Radiology Diagnoses Osteoarthritis of right knee, unspecified osteoarthritis type Procedures MRI KNEE RIGHT WO CONTRAST Tomás Helton, DO [address] [place] [address] Phone: tel: fax: Referral ID Status Reason Start Date Expiration Date Visits Re quested Visits Authorized [id number] Closed 11/14/2024 11/14/2025 1 1 Sighter Summary Purpose Family History No Family History [...] Documents on File Type Date Recorded 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 Expl 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 ACP-Advance Directive 07/13/2024 10:35 PM [...] section and content) DATE CREATED AUTHOR 06/20/2018 [facility] DATE CREATED AUTHOR AUTHOR'S ORGANIZ ATION 07/04/2018 [facility] DATE CREATED AUTHOR AUTHOR'S ORGANIZ ATION 09/18/2020 [facility] DATE CREATED AUTHOR AUTHOR'S ORGANIZ ATION 08/27/2022 [facility] DATE CREATED AUTHOR AUTHOR'S ORGANIZ ATION 06/23/2024 [facility] DATE CREATED AUTHOR AUTHOR'S ORGANIZ ATION 08/10/2024 [facility] DATE CREATED AUTHOR AUTHOR'S ORGANIZ ATION 12/03/2024 [facility] DATE CREATED AUTHOR AUTHOR'S ORGANIZ ATION 02/02/2025 [facility] REASON FOR VISIT (unrecogniz ed section [...] July 04, 2024 End: July 04, 2024 Chinese Herbalist Relationship Specialty Start Date End Date Robert Villasenor DO [address] [facility] [place] [id number] PCP - General Internal Medicine 07/06/24 Team [...] July 25, 2024 End: July 25, 2024 Chinese Herbalist Relationship Specialty Start Date End Date Robert Villasenor DO [address] [place] [id number] PCP - General Internal Medicine 07/06/24 Team [...] for injection by adding 1 mL of exhaust machine operator-supplied sterile diluent or sterile water for injection [...] BE BASED ON THE PRIMARY CLINICAL RECORDS. [employer] [facility]. provides no warranty or guarantee of the accuracy or completeness of information in this document.
[2025-02-11 11:50] VITALS: BP 117/77; PULSE 72; TEMP 36.6; O2SAT 96
[2025-02-11 12:21] VITALS: BP 128/82; PULSE 78; O2SAT 96
[2025-02-11 12:22] VITALS: BP 143/68; PULSE 75; O2SAT 96
[2025-02-11] MEDS: LIDOCAINE HCL 2% 400 MG/20 ML MDV INJ (12:23)
[2025-02-11] MEDS: BUPIVACAINE HCL 0.25% PF 25 MG/10 ML VIAL 2 ML INJ (12:23)
[2025-02-11] MEDS: IOHEXOL 240 MG/ML - 10 ML VIAL INJ (12:23)
[2025-02-11] MEDS: METHYLPREDNISOLONE ACETATE 40 MG/ML VIAL INJ (12:24)
--- NOTE | 2025-02-11 12:24 | W.PM.PROCNOT ---
Date of procedure: 02/11/25 Pre-op diagnosis: Pain due to right sacroiliitis Post-op diagnosis: same as pre-op Procedure: Procedure: Right sacroiliac joint injection Medications: Bupivacaine 0.25% 3cc, depomedrol 40mg After informed consent was obtained, the patient was brought to the medical procedure unit and placed in the prone position, when a timeout was completed verifying correct patient, procedure, site, positioning, implant, and/or special equipment.? The skin overlying the area was prepped and draped in standard sterile fashion using alcohol.? A 25-gauge needle was inserted towards the right sacroiliac joint under direct fluoroscopic imaging.? Needle tip was advanced until the joint was encountered.? We instilled a total of 2 mL of solution.? Postoperatively needles were removed.? The patient tolerated the procedure well without complication.? The patient reported reduction in pain symptoms postoperatively. Anesthesia: Local Surgeon: Miriam Barron Pathology: none sent Condition: stable Disposition: no change
== END 2025-02-11 12:29 | disposition home or self-care (01) ==
PROVIDERS: PCP Internal Medicine; Visit Provider Anesthesiology
DX: M46.1 Sacroiliitis, not elsewhere classified (principal); E11.8 Type 2 diabetes mellitus with unspecified complications; Z79.84 Long term (current) use of oral hypoglycemic drugs
CPT/HCPCS: 27096; 36415; 82948; J0665; J1010; Q9966

== ENCOUNTER 2025-02-16 19:05 | Emergency (ER) | payer OTHER, SELFPAY ==
--- OUTSIDE RECORDS SUMMARY | 2023-05-19 06:32 | XMS_ITS | Continuity of Care Document ---
Author Organization [facility] Address [address] [facility] [address] [place] [address] Phone Care Team Providers Care Rn Triage Name Role Phone Brea Dias Unavailable Unavailable Allergies, Adverse Reactions, Alerts Substance Reaction Status Criticality No Known Allergies Active No Inform ation Medications Medication Instructions Dosage Effective Dates (start - stop) Status Comments ibuprofen 800 mg tablet take 1 tablet by oral route 3 times every day as needed with food 800 MG - Active Bromfed DM 2 mg-30 mg-10 mg/5 mL oral syrup take 10 milliliter by oral route every 4 hours 10.00 milliliter - Active Procedures Procedure Date INFLUENZA A NASAL SWAB OnSite 2 INFLUENZA B NASAL SWAB OnSite 2 Rapid Covid19 Antigen Onsite Covid-19 YARED Culture OFFICE VISIT/NEW LEVEL IV Advance Directives Directive Yes / No Effective Date File Name No Information Encounters Encounter Description Practice Location Reason(s) For Visit Diagnoses Date Provider Providers Copied on Encounter [facility], [address], [place], [place], [id number], [place] tel:[phone] [facility] No Information 4 Eliot Guidry. [address] [place], [address], [place]. tel:[phone] OFFICE VISIT/NEW LEVEL IV [facility], [address], [place], [place], [id number], [place] tel:[phone] Amos cheng (chief complaint) Close exposure to COVID-19 virusBody mass index (BMI) 50.0-59.9, adult Wilner VELASQUEZ Cinthya. [address], [place], [id number] , [place]. [phone] Referring Provider: Cinthya Darby CNP, [address] [place], [address] . tel:[phone] Family History Family Member Type Diagnosis Age At Onset No Information Immunizations Vaccine Date Status Comments SARS-COV-2 (COVID-19) Moderna administere d Note: impact-JS ; Source: Other Registry SARS-COV-2 (COVID-19) Moderna administere d Note: impact-JS ; Source: Other Registry 6mos +Influenza administered Note: impact -js ; Source: Other Registry Pneumococcal polysaccharide PPV23 adminis tered Note: impact-JS ; Source: Other Registry Tdap (Adacel) administered Note: impact-j s ; Source: Other Registry Payers Payer name Insurance type Covered green party ID Authoriza tion(s) No Information Social History Type Description Quantity Date Captured Comments Sex Female Smoking Status No Information Sexual Orientation Straight or heterosexual Apr Gender Identity Female Chief Complaint And Reason For Visit No Information Reason For Referral Reason For Referral No Information Plan Of Treatment Date Type Action Status Goal Zoster vaccine (2nd). Due on due Goal Tdap. Due on due Goal Pap/HPV testing. Due on due Goal Influenza vaccine. Due on due Goal Pneumococcal vaccine. Due on due Goal H&P. Due on due Goal Fit test. Due on due Goal Mammogram. Due on due Goal Colonoscopy. Due on due Goal Zoster vaccine (1st). Due on due Goal HCV. Due on due Goal Low dose CT. Due on due Goal HIV Screen. Due on due Goal Lipid panel. Due on due Goal DNA Cologuard. Due on due Goal Pain Screening. Due on due Goal Pap/HPV testing. Due on due Goal Tdap. Due on due Goal Lipid panel. Due on due Goal Fit test. Due on due Goal Low dose CT. Due on due Goal Colonoscopy. Due on due Goal Zoster vaccine (1st). Due on due Goal HIV Screen. Due on due Goal Zoster vaccine (2nd). Due on due Goal HCV. Due on due Goal Mammogram. Due on due Goal Influenza vaccine. Due on due Goal DNA Cologuard. Due on due Goal Pneumococcal vaccine due Goal H&P. Due on due History Of Present Illness Encounter Date Complaint History Of Prese nt Illness uri The patient desc ribes the cough as productive (of yellow sputum). Context: sick family member. Associated symptoms include cough, fatigue, sinus pressure and sore throat. Pertinent negatives include chills, dyspnea, fever and wheezing. Functional Status Date Functional Assessmen t No Information Instructions Date Instruction Additional Infor mation No Information Assessments Type Assessment Date No Information Patient Care Teams Name Effective Dates (start - stop) Status Members No Information
--- OUTSIDE RECORDS SUMMARY | 2024-10-12 06:00 | XMS_ITS ---
Author Organization [facility] Address [address] [place] [address] Care Team Providers Care Company Driver Name Role Phone MICA VILLASENOR DO Primary Care Provider Tomás Cox Unavailable [phone] Eloise Meehan Unavailable [phone] REASON FOR VISIT LUMBAR RECHECK Encounters Encounter Location Date Provider Diagnosis [facility] [address] [place] [phone] 10/12/2024 Eloise Meehan Plan Of Treatment Next Appt Details Provider Name:Eloise Mitchell [facility], 02/28/2025 09:10:00 AM, [address] [place] [address], [phone], Provider Name:Eliose Mitchell St [facility] , 03/05/2025 10:30:00 AM, [address] [place] [address], [phone], Provider Name:Eloise Mitchell [facility], 04/11/2025 10:10:00 AM, [address] [place] [address], [phone], Progress Notes * CARROLL FUENTES ADOB:[birth year] (64 yo F)Acc No.[id number]:10/12/2024 Patient:?CARROLL FUENTES :?Eloise Veliz MD, PhDDOB:1960 ???Age:64 Y???Sex:FemaleDate:10/12/2024Phone:[phone]:[address], [place], [phone]:MICA VILLASENOR, DO Subjective: * Chief Complaints: * 1 . LUMBAR RECHECK. * Medical History: Objective: * Vitals: Assessment: Plan: * Treatment: Forms: * Images: * Electronic signature of Eloise Meehan MD, PHD on 02/16/2025 at 07:12 PM EDT Sign off status: Pending * Provider: Lea Veliz MD, PhD Date: 0 10/12/2024 Generated for Printing/Faxing/eTransmitting on:?02/16/2025 07:12 PM EDT
--- OUTSIDE RECORDS SUMMARY | 2024-11-26 11:40 | XMS_ITS ---
Author Organization [facility] Address [address] [place] [address] Care Team Providers Care Denier Control Operator Name Role Phone MICA VILLASENOR DO Primary Care Provider Tomás Cox Unavailable [phone] REASON FOR VISIT RT KNEE Medications Medication SIG (Take, Route, Frequency, Duration) Notes Start Date End Date Status pregabalin 75 mg 1 cap(s) orally 3 times a day f or 30 days 5Activegabapentin 300 mg1 cap(s) orally 3 times a day for 30 day(s) 5ActiveHYDROcodoneActivegabapentinActiveetodolacActiveclonazePAMActive Encounters Encounter Location Date Provider Diagnosis [facility] [address] [place] [address] 11/26/2024 Tomás Helton Plan Of Treatment Next Appt Details Provider Name:Eloise Mitchell [facility], 02/28/2025 09:10:00 AM, [address] [place] [address], [phone], Provider Name:Eloise Mitchell [facility], 03/05/2025 10:30:00 AM, [address] [place] [place] [address], [phone], Provider Name:Eloise Mitchell [facility], 04/11/2025 10:10:00 AM, [address] [place] [address], [phone], Progress Notes * CARROLL FUENTES ADOB:[birth year] (64 yo F)Acc No.[id number]:11/26/2024 Patient:?CARROLL FUENTES :?Tomás Helton, BRIANOB:1960???Age:64 Y ???Sex:FemaleDate:11/26/2024Phone:[phone]:[address], [place], [id number]:MICA VILLASENOR DO Subjective: * Chief Complaints: * 1 . RT KNEE. * Medical History: * Medications: T aking etodolac , Taking clonazePAM , Taking gabapentin , Taking HYDROcodone , Taking gabapentin 300 mg capsule 1 cap(s) orally 3 times a day , Taking pregabalin 75 mg capsule 1 cap(s) orally 3 times a day Objective: * Vitals: Assessment: Plan: * Treatment: Forms: * Images: * Electronic signature of Tomás Helton DO on 02/16/2025 at 07:13 PM EDTSign off status: Pending * Provider: Jany Helton DO Date: 0 11/26/2024 Generated for Printing/Faxing/eTransmitting on:?02/16/2025 07:13 PM EDT
--- OUTSIDE RECORDS SUMMARY | 2024-12-10 11:40 | XMS_ITS ---
Author Organization [facility] Address [address] [place] [address] Care Team Providers Care Lift Operator Name Role Phone MICA VILLASENOR DO Primary Care Provider Tomás Cox Unavailable [phone] REASON FOR VISIT RT KNEE Medications Medication SIG (Take, Route, Frequency, Duration) Notes Start Date End Date Status HYDROcodone ActivegabapentinActiveclonazePAMActiveetodolacActivepregabalin 75 mg1 cap(s) orally 3 times a day for 30 days5Activegabapentin 300 mg1 cap(s) orally 3 times a day for 30 day(s)5Active Encounters Encounter Location Date Provider Diagnosis [facility] [address] [place] [address] 12/10/2024 Tomás Helton Plan Of Treatment Next Appt Details Provider Name:Eloise Mitchell [facility], 02/28/2025 09:10:00 AM, [address] [place] [address], [phone], Provider Name:Eloise Mitchell [facility], 03/05/2025 10:30:00 AM, [address] [place] [address], [phone], Provider Name:Eloise Mitchell [facility], 04/11/2025 10:10:00 AM, [address] [place] [address], [phone], Progress Notes * CARROLL FUENTES ADOB:[birth year] (64 yo F)Acc No.[id number]:12/10/2024 Patient:?CARROLL FUENTES :?Tomás Helton, DODOB:1960???Age:64 Y ???Sex:FemaleDate:12/10/2024Phone:[phone]:[id number], [place], [id number]:MICA VILLASENOR DO Subjective: * Chief Complaints: * [...] * Provider: Jany Helton DO Date: 0 12/10/2024 Generated for Printing/Faxing/eTransmitting on:?02/16/2025 07:13 PM EDT
--- OUTSIDE RECORDS SUMMARY | 2025-01-01 09:40 | XMS_ITS ---
Author Organization [facility] Address [address] [place] [address] Care Team Providers Care Casing Fluid Tender Name Role Phone MICA VILLASENOR DO Primary Care Provider Tomás Cox Unavailable [phone] REASON FOR VISIT right knee MRI Review - [place] / right hip pain Encounters Encounter Location Date Provider Diagnosis [facility] [address] [place] [phone] 01/01/2025 Tomás Helton Plan Of Treatment Next Appt Details Provider Name:Eloise Mitchell [facility], 02/28/2025 09:10:00 AM, [address] [place] [address], [phone], Provider Name:Eloise Mitchell [facility], 03/05/2025 10:30:00 AM, [address] [place] [address], [phone], Provider Name:Eloise Mitchell [facility], 04/11/2025 10:10:00 AM, [address] [place] [address], [phone], Progress Notes * CARROLL FUENTES ADOB:[birth year] (64 yo F)Acc No.[id number]:01/01/2025 Patient:?BENI FUENTESDANIELLA Meier :?Tomás Helton DODOB:1960???Age:64 Y ???Sex:FemaleDate:01/01/2025Phone:[phone]:[address], [id number]:MICA VILLASENOR DO Subjective: * Chief Complaints: * 1 . right knee MRI Review - [place] / right hip pain. * Medical History: Objective: * Vitals: Assessment: Plan: * Treatment: Forms: * Images: * Electronic signature of Tomás Helton DO on 02/16/2025 at 07:13 PM EDTSign off status: Pending * Provider: Jany Helton DO Date: 0 01/01/2025 Generated for Printing/Faxing/eTransmitting on:?02/16/2025 07:13 PM EDT
--- OUTSIDE RECORDS SUMMARY | 2025-01-21 09:40 | XMS_ITS ---
Author Organization [facility] Address [address] [place] [address] Care Team Providers Care Property Specialist Name Role Phone MICA VILLASENOR DO Primary Care Provider Tomás Cox Unavailable [phone] REASON FOR VISIT RT KNEE Encounters Encounter Location Date Provider Diagnosis [facility] [facility] [address] [place] [address] 01/21/2025 Tomás Helton Plan Of Treatment Next Appt Details Provider Name:[facility], 02/28/2025 09:10:00 AM, [address] [place] [address], [phone], Provider Name:[facility], 03/05/2025 10:30:00 AM, [address] [place] [address], [phone], Provider Name:[facility], 04/11/2025 10:10:00 AM, [address] [place] [address], [phone], Progress Notes * JOHN FUENTESIA ADOB:[birth year] (64 yo F)Acc No.[id number]:01/21/2025 Patient:?CARROLL FUENTES :?Tomás Helton, DODOB:1960???Age:64 Y ???Sex:FemaleDate:01/21/2025Phone:[phone]:[address], [place], [place]Jov:MICA E BALL, DO Subjective: * Chief Complaints: * 1 . RT KNEE. * Medical History: Objective: * Vitals: Assessment: Plan: * Treatment: Forms: * Images: * Electronic signature of Tomás Helton , on 02/16/2025 at 07:12 PM EDTSign off status: Pending * Provider: Jany Helton DO Date: 0 01/21/2025 Generated for Printing/Faxing/eTransmitting on:?02/16/2025 07:12 PM EDT
--- OUTSIDE RECORDS SUMMARY | 2025-02-13 21:09 | XMS_ITS | Continuity of Care Document ---
Author Organization [facility] Address [address] [place] [address] Phone Care Team Providers Care Signal Wirer Name Role Phone Robert Cruz DO Primary Care Provider Robert Cruz DO Attending Provider [phone] MD Attending Provider [phone] Care Teams Patient Care Team Team Status: Active Member Role/Relationship Status Dates Robert Cruz DO Primary Care Provider Active Visit Care Team Team Status: Inactive Member Role/Relationship Status Dates Robert Cruz DO Primary Care Provider Active Start: November 28, 2024 End: November 28Elmo Alanis ProviderActiveStart: November 28, 2024 End: November 28, 2024 Visit Care Team Team Status: Inactive Member Role/Relationship Status Dates Robert Cruz DO Primary Care Provider Active Start: January 23, 2025 End: January 23Elmo Alanis ProviderActiveStart: January 23, 2025 End: January 23, 2025 Visit Care Team Team Status: Active Member Role/Relationship Status Dates Robert Cruz DO Primary Care Provider Active Start: February 06, [address] MDAttkiesha ProviderActiveStart: February 06, 2025 Visit Care Team Team Status: Inactive Member Role/Relationship Status Dates Robert Cruz DO Primary Care Provider Active Start: February 13, 2025 End: February 13Elmo Alanis ProviderActiveStart: February 13, 2025 End: February 13, 2025 Chief Complaint and Reason for Visit Chief Complaint Admit Date R Side Pain November 28, 2024 1:2 9pm 4 month January 23, 2025 11 :33am N63.20 N64.4 February 13, 2025 8 :58am Reason for Visit Admit Date Acute meniscal tear of right knee November 28, 2024 1:29pm Central stenosis of spinal canal November 28, 2024 1:29pm Lateral cutaneous nerve of thigh syndrom e November 28, 2024 1:29pm Leg pain November 28, 2024 1:2 9pm Breast mass, left January 23, 2025 11 :33am Hypercholesterolemia January 23, 2025 1 1:33am Hypertension January 23, 2025 11 :33am Hypothyroid January 23, 2025 11 :33am Low back pain radiating to right leg Oct stella 2024 11:33am Lumbar spondylosis January 23, 2025 11 :33am Major depression January 23, 2025 11 :33am STEPHANIE (obstructive sleep apnea) January 11:33am Type 2 diabetes mellitus with hyperglyce dion January 23, 2025 11:33am Allergies, Adverse Reactions, Alerts Allergen Type Severity Reaction Last Updated Verified Status Comments calcium Allergy Unknown Unknown Reaction January 23, 2025 11:43am Yes Active calcium carbonateAllergyUnknownUnknown ReactionOctsaint joseph hospital 2024 11:43amYes ActivehydromorphoneAllergyUnknownUnknown ReactionOctober 2024 11:43amYes ActiveiodineAllergyUnknownUnknown ReactionOctsaint joseph hospital 2024 11:43amYesActive latexAllergyUnknownUnknown ReactionOctober 2024 11:43amYesActivemeperidine AllergyUnknownUnknown ReactionOctober 2024 11:43amYesActiveprasterone (DHEA)AllergyUnknownUnknown ReactionOctsaint joseph hospital 2024 11:43amYesActive sumatriptanAllergyUnknownUnknown ReactionOctober 2024 11:43amYesActiveFluad AllergyUnknownUnknown ReactionAugust 2023 3:24pmNoActiveFluad Quadrivalent AllergyUnknownComment:FLU VACCINEJanuary 2023 10:00amNoActiveOnset Date: 11/20/2013 Social History Smoking Status Status Start Date End Date Date of Observa tion Never smoked tobacco (finding) October 11, 2024 10:40am Observation Status Observation Response Date of Response Legal Sex Female (finding) Sex Assigned At BirthFemaleDecember 1959 Family History Relationship Condition Age at Onset Recorded Date/T babar father Heart disease Unknown Diabetes mellitusUnknownsisterAsthmaUnknown Problems Active Problems Problem Diagnosis/Recorded Date Onset Date Status C omments Prerenal azotemia September 12, 2024 9:51pm Unknown Active Major depressionJune 2024 11:17amUnknownActiveOSA (obstructive sleep apnea)December 20, 2023 3:28pmUnknownActiveGAD (generalized anxiety disorder) June 13, 2023 11:14pmUnknownActivePTSD (post-traumatic stress disorder) November 05, 2024 9:45amUnknownActivePrimary osteoarthritis, right shoulderMarch 2024 10:03pmUnknownActiveType 2 diabetes mellitus with hyperglycemiaMarch 2024 5:48pmUnknownActiveAcute meniscal tear of right kneeAugust 2024 2:21pmUnknownActiveMass of left axillaMay 2024 3:43pmUnknownActiveWellness examinationAugust 2023 4:05pmUnknownActiveHypercholesterolemiaMarch 2024 5:48pmUnknownActiveHypothyroidMarch 2024 5:49pmUnknownActiveCervical spondylosisAugust 2023 9:02pmUnknownActiveLow back pain radiating to right legOctober 2024 1:06pmUnknownActiveSwelling of right knee jointMay 2024 9:37pmUnknownActiveKnee pain, rightMay 2024 3:43pmUnknownActiveAcute blood loss anemiaMay 2024 9:56pmUnknownActiveBreast mass, leftOctober 2024 12:02pmUnknownActiveHypertensionMarch 2024 11:42amUnknownActiveCentral stenosis of spinal canalMarch 2024 10:00pmUnknownActiveLumbar spondylosis January 07, 2025 6:37pmUnknownActiveMRI: 01/07/25L3-4 mod left, severe right foraminal stenosis,Inactive/Resolved Problems Problem Diagnosis/Recorded Date Onset Date Status C omments Hx of fusion of cervical spine February 24, 2024 3:15pm U nknown Resolved Medications Medication Status Dose Units Route Directions Qty Days Refills S tart Date Stop Date End Date Reason(s) Instructions Adherence Clonazepam 0.5 mg tablet Discontinued 1.5 MG PO Daily at bedtime 270 90 1 June 13, 2023 1:00am December 20, 2023 4:16pmGeneralized anxiety disorder Generalized anxiety disorderadminister 30 minutes before bedtimeCitalopram 40 mg ehcqvxPxcdcowovxkw14AGLCFtjdg08416Idow 2023 8:37amApril 2024 7:54pm Tizanidine 4 mg qcaoiktOkpffprfoyxh7QSXGEyluv at bedtime as needed for muscle bdbgvksich85385Emxjfi 2023 12:52pmNov2023 5:11pmtake 1/2 to 1 tablet at QHSClonazepam (Klonopin) 1 mg tabletDiscontinued1.5MGPODaily at uzkqgsg66911Dtxmhpsmw 3rd, 2024 1:03pmApril 2024 5:31pmGeneralized anxiety disorder Generalized anxiety disorderEtodolac 500 mg adnoixYpbeqsfhoagj072TODXPjbtf daily as needed for stjzyymd23245Zbbcwxyjq 16th, 2024 1:30pmDecember 2023 11:06amTizanidine 4 mg hwqhsbwQjgkljbbenkt8QXTWArmxn vagff501327Izzczfly 6th, 2024 5:11pmFebruary 2024 9:55ammuscle spasticityMetformin 500 mg tablet Discontinued0.ROUTE.FYTPJHX7082Tofvgyfx 2023 8:00amApril 2024 7:54pm TAKE 1 TABLET BY MOUTH WITH A MEAL TWICE DAILYGlimepiride 4 mg tablet Discontinued0.ROUTE.XNHASKI466Nhlsdlre 4th, 2024 8:00amApril 2024 7:54pm TAKE 1 TABLET BY MOUTH DAILY WITH BREAKFAST OR FIRST MAIN MEAL OF THE DAY Atenolol 50 mg tabletDiscontinued0.ROUTE.STBTSCG322Ybljpotk 4th, 2024 8:00am August 14, 2024 7:54pmTAKE 1 TABLET BY MOUTH ONCE DAILYLevothyroxine 125 mcg tabletDiscontinued0.ROUTE.MBMBQWJ950Npyzyxyw 2023 8:00amApril 2024 7:54pmTAKE 1 TABLET BY MOUTH ONCE DAILY IN THE MORNING ON AN EMPTY STOMACH Pravastatin 20 mg tabletDiscontinued0.ROUTE.MZHEMUG126Bsoudtwo 4th, 2024 8:01am August 14, 2024 7:54pmTAKE 1 TABLET BY MOUTH ONCE DAILYOlmesartan 20 mg tablet Xvuuniqmlbhs37USHUInifpAgljxnig 4th, 2024 1:00amDecember 2023 9:29pm Olmesartan 20 mg tabletDiscontinued0.ROUTE.KNOFVEP654Cvbkzlww 4th, 2024 9:29pm August 14, 2024 7:54pmTAKE 1 TABLET BY MOUTH ONCE DAILYEtodolac 500 mg tablet Ihamibiuxdxg999LHHYUvnva daily as needed for ofmamoiv91283Xsqiyblg 2023 11:06amMarch 2024 10:42amTizanidine 4 mg tabletDiscontinued0.ROUTE.COMPLEX 1801February 2024 9:55amApril 2024 7:53pmTAKE 1 TABLET BY MOUTH TWICE A DAY FOR MUSCLE SPASTICITYEtodolac 500 mg tabletDiscontinued0.ROUTE .UYNSWSF470Nkypx 2024 10:42amApril 2024 7:54pmTAKE 1 TABLET ORALLY TWICE DAILY NEEDED FOR HEADACHE FOR 30 DAYSClonazepam (Klonopin) 1 mg tablet Discontinued1.5MGPODaily at mutfsbs91340Daapt 2024 5:30pmApril 2024 7:54pmGeneralized anxiety disorder Generalized anxiety disorderAtenolol 50 mg hximfgQgsbmf99KGOSHmdny25818Ktqie 2024 7:47pmUnknownCitalopram 40 mg gndmczWrvgftxzexwj27WFYHKexet02497Volde 2024 7:48pmSeptember 2024 8:58pmClonazepam (Klonopin) 1 mg tablet Discontinued1.5MGPODaily at eplpvqa432140Ipcxg 2024 7:48pmOctober 2024 1:04pmGeneralized anxiety disorder Generalized anxiety disorderEtodolac 500 mg wphrchXitmni225FDIKCpjlz wptlp199736 August 14, 2024 7:49pmUnknownGlimepiride 4 mg tixbzgWwmbzw0OHUHOcvlp26527Pgsri 2024 7:49pmUnknownLevothyroxine 125 mcg gsjoasHrlmpz464MFVUJQcqfe11661 August 14, 2024 7:51pmUnknownMetformin 500 mg uzozefNmocyq949TLTQDowjr daily with bguss893028Udsox 2024 7:51pmUnknownOlmesartan 20 mg abtanuEqxtqc48HN KUWqsap17890Umhqj 2024 7:52pmUnknownPravastatin 20 mg qilbcaObxqfo43BERI Daily at etvjdot33038Zuisn 2024 7:52pmUnknownPregabalin 75 mg capsule Blgeofmubyyy28BHDVHujhw fnuxw400669Zyxss 2024 7:53pmMay 2024 4:45pm Herniation of intervertebral disc of lumbar spine Other intervertebral disc displacement, lumbar regionPregabalin 75 mg capsule Apqqfqqydzkn45VBOOTtafh wetyw753323Zdp 7th, 2025 4:45pmJune 2024 11:03am Herniation of intervertebral disc of lumbar spine Other intervertebral disc displacement, lumbar regionTramadol 50 mg tablet Fcrivafjimdx35GVCHYwkyw 8 hours as needed for ynmn52331Tnx 2024 12:00am October 11, 2024 11:02amRight knee pain Pain in right kneeTramadol 50 mg ghlcalZcimkujgvcoh87VSMOEzmdq 8 hours as needed for lspm73895Enfx 2024 10:49amAugust 2024 2:13pmRight knee pain Pain in right kneeTramadol 50 mg wsborvXcixlt83BLVNDjizj 8 hours as needed for mxeg55733Baziue 2024 6:05pmRight knee pain Pain in right kneeUnknownCitalopram 40 mg tabletActive0.ROUTE.KDRQZLC293 December 26, 2024 8:58pmTAKE 1 TABLET BY MOUTH EVERY DAYUnknownTizanidine 4 mg fowjidaThzojdirpnwk0ASQHHagyw at bedtime as neededJune 17, 2023 1:00am June 17, 2023 1:41pmtake 1/2 tablet at QHSTizanidine 4 mg capsule Csaumrkziwgx8DMZIFklju at bedtime as needed for muscle pffwthvply130Nipoaits 23rd, 2024 1:40pmAugust 2023 1:19pmtake 1/2 tablet at QHSCitalopram 40 mg qrqkmpTqrqqdwuggyr24TSHAUprhu at bedtimeOctober 18, 2023 12:00amOctober 18, 2023 8:38amAmitriptyline 10 mg hfvcfzFktygwcngiky49VTJMFhlns at bedtimeAunorthern nav[facility] medical center2023 12:002023 3:47pm1 TO 2Olmesartan 20 mg ethmguRmamsaxapztg31 MGPODaily2023 12:002023 4:17pmGlimepiride 4 mg atneymSqycfoprfhtl3PJHCZOxxxhFdnrvx 27th, 2024 12:00amDe2023 8:00am FreeTextSi tablet with breakfast or the first main meal of the day Orally Once a day; Note: Source Status: Taking; Refills: 3; Qty: 90 Tablet; Provider: Anthony Jones ENaratriptan 2.5 mg tabletDiscontinued2.5MGPOEvery 4 hours as needed for migraine headacheAugust 2023 12:002023 4:16pm Metformin 500 mg tabletDiscontinuedMGPOAunorthern navajo medical center2023 12:00amMarch 28, 2024 8:00amFreeTextSi tablet with a meal Orally two times daily; Note: Source Status: Taking; Refills: 3; Provider: Anthony Jones EEtodolac 500 mg okrcpnKaupgxozeati674EEFRVpapk zhanr86459Xpfpec 2023 12:002023 4:16pmMagnesium Aspart,Citrate,Oxide 400 mg magnesium hxpabnqVeeymp656PTIF DailyAugust 2023 12:00amUnknownAtenolol 50 mg okilfjEmolytohoebr74HCAP Dailynorthern navajo medical center2023 12:00amDecemb2023 8:00amLevothyroxine 125 mcg regczgcAxbhogkgonvx896IIDGJJerepZlldjk 27th, 2024 12:00amDemb2023 8:00amPravastatin 40 mg vaubbpCgyjxjoooymx32CIEEInrymJkvazk 27th, 2024 12:00am March 28, 2024 8:02amClonazepam (Klonopin) 1 mg tabletDiscontinued1.5MGPO Daily at bedtimeAunorthern navajo medical center2023 12:00amSeptember 2023 1:04pmRizatriptan (Maxalt) 10 mg jkowysYumnqg62QURVCYIUL 2-4 HOURS as neededR[facility]20[facility] 12:00amdo not exceed 3 doses per 24 hrsUnknownEtodolac 500 mg tabletDiscontinued 500MGPOTwice biryj97653Cxouco 2023 12:00amSeptember 2023 1:31pm Hydrocodone-Acetaminophen 5-325 mg nukjzlJaxynmghudeu1MPJHISZPEW 4-6 HOURS as needed for qatp5707Vixvx pril 2024 7:50pmLow back pain Low back pain, unspecifiedTramadol 50 mg joganpBdtzxqoqiugu11UVMBTmbpj 8 hours as needed for jcyi99840Miif 2024 11:01amJune 2024 10:50amRight knee pain Pain in right kneeBupropion Hcl 150 mg tablet sustained-release 12 hr Bdgdmvvacrxf522QCGTWlwlm ixezgsl66448Fkqs 2024 12:00amJune 2024 11:42amBupropion Hcl 150 mg tablet sustained-release 12 cxMnvoah805AUXZYdwvu lhqdkha19702Rute2024 11:42amUnknownPrednisone 20 mg uvftorUtfgyawnhoxs53 MGPOAs Mvofwkoo983Sawob 2024 12:00amApril 2024 7:53pm1 tab tid w/ food x 3 daysPregabalin 50 mg ifymmjvIowujaqosuna38YBMZOsvlk yukme560Uramu 2024 12:00amApril 2024 7:54pmHerniation of intervertebral disc of lumbar spine Other intervertebral disc displacement, lumbar regionHydrocodone-Acetaminophen 5-325 mg ymgvunFvjisbsaublv0XNSOEMKKJN 4-6 HOURS as needed for vbfh7117Kxfgh 2024March 2024 11:05amLow back pain Low back pain, unspecifiedPregabalin 75 mg aytcbrdMhaiku90LOEQYjzwh adozy07927 November 28, 2024 12:00amCentral stenosis of spinal canal Spinal stenosis, site unspecifiedUnknownTramadol 50 mg mddsiiPmzcxhcvhkgx26WMHZ Every 8 hours as needed for uexh60247Zjgcdz 2024 2:13pmAugust 2024 6:06pmRight knee pain Pain in right knee Procedures Procedure Date Performed Status MM diagnostic mammo BI w/CAD February 13, 2025 8:59am completed US breast LT limited February 13, 2025 8:59am c ompleted Relevant Diagnostic Tests and/or Laboratory Data Laboratory Results Test Collection Date/Time Result Date/Time Result Interpretation Reference Range Result Comment Performing Site Estimated Average Glucose February 06, 2025 1:09pm February 06, 2025 1:09pm 137 mg/dL Anion GapOctsaint joseph hospital 2024 1:09pmOctsaint joseph hospital 2024 1:09pm14.2Basophils # (Auto)February 06, 2025 1:09pmOctsaint joseph hospital 2024 1:09pm0.0 10 3/uL0.0-0.1 Activated Partial Thromboplast TimeOctsaint joseph hospital 2024 1:09pmOctsaint joseph hospital 2024 1:09pm25.9 sec22.3-36.2Prothromb Time International RatioOct2024 1:09pmOctsaint joseph hospital 2024 1:09pm1.07DESIRED INR:2.0-3.0 CONDITIONS NOT LISTED BELOW2.5-3.5 FOR PROSTHETIC HEART VALVE REPLACEMENT2.5-3.5 RECURRENT THROMBOSIS Hemoglobin A1rRkgzhqu 2024 1:09pmOctsaint joseph hospital 2024 1:09pm6.4 %Above high normal4.5-6.2ADA RECOMMENDED LIMIT 4.0 - 6.0ADA THERAPEUTIC TARGET < 7.0ACTION SUGGESTED> 7.0BUN/Creatinine RatioOct2024 1:09pmOct2024 1:09pm15.9Basophils (%) (Auto)February 06, 2025 1:09pmOctober 2024 1:09pm 0.4 %0.2-2.0Prothrombin TimeFebruary 06, 2025 1:09pmOct2024 1:09pm 11.3 sec9.0-11.6Blood Urea NitrogenOct2024 1:09pmOct2024 1:09pm23.0 mg/dLAbove high normal7.0-18.0Eosinophils # (Auto)February 06, 2025 1:09pmOctober 2024 1:09pm0.2 10 3/uL0.0-0.7Calcium LevelFebruary 06, 2025 1:09pmOct2024 1:09pm9.0 mg/dL8.5-10.1Eosinophils (%) (Auto)February 06, 2025 1:09pmOctober 2024 1:09pm3.4 %0.9-7.0Chloride LevelFebruary 06, 2025 1:09pmOctober 2024 1:97yp906 mmol/V89-879ObgldwfizyNtahqzb 15th, 2025 1:09pmOct2024 1:09pm38.7 %36.0-48.0Carbon Dioxide Level February 06, 2025 1:09pmOct2024 1:09pm27.3 mmol/L21.0-32.0Hemoglobin February 06, 2025 1:09pmOct2024 1:09pm12.6 g/dL12.0-16.0Creatinine February 06, 2025 1:09pmOctober 2024 1:09pm1.45 mg/dLAbove high normal 0.55-1.02Immature Granulocyte # (Auto)February 06, 2025 1:09pmOct2024 1:09pm0.03 10 3/uL0.00-0.03Estimated GFR ()February 06, 2025 1:09pmOctober 2024 1:07or47Jldkf low normal>=60 mL/min/1.73m 2 Immature Granulocyte % (Auto)February 06, 2025 1:09pmOctober 2024 1:09pm 0.4 %0.0-0.5Estimated GFR (Non- AmericanOct2024 1:09pmOctober 2024 1:00li98Pwncm low normal>=60 mL/min/1.73m 2Lymphocytes # (Auto) February 06, 2025 1:09pmOctober 2024 1:09pm2.2 10 3/uL1.2-3.8Glucose LevelOctober 2024 1:09pmOctober 2024 1:09pm83 mg/fY73-025Sokfbotkqai (%) (Auto)February 06, 2025 1:09pmOctober 2024 1:09pm30.8 %20.5-60.0 Potassium LevelOct2024 1:09pmOctober 2024 1:09pm4.5 mmol/L 3.5-5.1Mean Corpuscular HemoglobinOctober 2024 1:09pmOctober 2024 1:09pm28.4 pg26.7-34.0Sodium LevelOctober 2024 1:09pmOctober 2024 1:11va545 mmol/D511-892Tyxs Corpuscular Hemoglobin ConcentOctober 2024 1:09pmOctober 2024 1:09pm32.6 g/dL29.9-35.2Mean Corpuscular VolumeOct2024 1:09pmOctober 2024 1:09pm87.2 fL81.0-99.0Monocytes # (Auto) February 06, 2025 1:09pmOctober 2024 1:09pm0.6 10 3/uL0.3-0.8Monocytes (%) (Auto)February 06, 2025 1:09pmOctober 2024 1:09pm7.9 %1.7-12.0Mean Platelet VolumeOctober 2024 1:09pmOctober 2024 1:09pm10.5 fL9.5-13.5 Neutrophils # (Auto)February 06, 2025 1:09pmOctober 2024 1:09pm4.1 10 3/uL1.4-6.5Neutrophils (%) (Auto)February 06, 2025 1:09pmOctober 2024 1:09pm57.1 %43.0-75.0Platelet CountOct2024 1:09pmOctober 2024 1:75fj923 10 3/gH399-015Mys Blood CountOctober 2024 1:09pmOctober 2024 1:09pm4.44 10 6/uL4.20-5.40Red Cell Distribution WidthOct2024 1:09pmOctober 2024 1:09pm13.3 %11.0-15.0Corrected White Blood CountOctober 2024 1:09pmOctober 2024 1:09pm7.1 10 3/uL4.0-11.0 Diagnostic Imaging Reports Author Nam London [facility] HospitalReport Date/TimeOct2024 9:51am [facility] [address] [place] [address] Mammography Report Signed Patient: Janny Fuentes MR#: [id number] : 1960 Acct:[id number] Age/Sex: 64 / F Adm Date: 5 Loc: [place] Room: Type: [facility] Attending Dr: Robert Cruz DO Ordering Provider: Robert Cruz DO Date of Service: 02/13/25 Procedure(s): MM diagnostic mammo BI w/CAD; US breast LT limited Accession Number(s): ([id number]) US/US breast LT limited: N63.20 - ([id number]) MM/MM diagnostic mammo BI w/CAD: N63.20 - Copies to: Robert Cruz,DO~ DIAGNOSTIC BILATERAL MAMMOGRAM - FULL FIELD DIGITAL WITH TOMOSYNTHESIS CLINICAL DATA: Lateral left breast pain Tomosynthesis Craniocaudal and mediolateral oblique views of the bilateral breasts were obtained using low-dose digital technique. Comparison is made to prior studies from 02/28/2024 and 2023. This examination was reviewed withthe aid of CAD. Scattered fibroglandular tissue is noted. Benign-appearing calcifications are present. There are nodominant masses, typically malignant calcifications or architectural distortion. There has been no significant interval change. Limited left breast ultrasound: In the region of tenderness along the left breast at the 2 to 3:00 position 14 to 15 cm from the nipple there is mild scattered fibroglandular tissue without evidence of mass, cyst, architectural distortion, or atypical calcification. MM/MM diagnostic mammo BI w/CAD IMPRESSION: NO MAMMOGRAPHIC EVIDENCE OF MALIGNANCY. ROUTINE FOLLOW-UP IS RECOMMENDED IN ONE YEAR. RESULT CODE: 2 Benign Findings(s) DENSITY CODE: 2 (approximately 25-50% glandular) There are scattered areas of fibroglandular density. FOLLOW UP: 1YR The false-negative rate of mammography is approximately 10-percent. Management of a palpable abnormality must be based on clinical grounds. Impression dictated by: Nam London M.D. 02/13/2025 9:51 AM Dictation Location: [facility] Dictated By: Nam London II, MD 02/13/25 0933 Signed By: <Electronically signed by Nam London II, MD in [place]> 02/13/25 0951 Vital Signs Vital Reading Result Reference Range Collection Date/Time Height 61 [in_i] November 28, 2024 1:05ipHfnvgc49.43 kgAugust 2024 1:37pmHeart Rate77 /min 60-100August 2024 1:37pmRespiratory rate12 /mvy89-65Grnjri 2024 1:37pm BP Uozbskfw922 mm[Hg]100-140August 2024 1:37pmBP Aincwobbj63 mm[Hg]60-100 November 28, 2024 1:37pmBMI (Body Mass Index)31.8 kg/t1Rskiac 2024 1:37pm Iiiaan38 [in_i]January 23, 2025 11:91vvVwuhhy29.37 kgOctober 2024 11:48am Heart Rate68 /csc06-601Alnpjhr 2024 11:48amRespiratory rate12 /hqx63-75 January 23, 2025 11:48amBP Pqncuggf473 mm[Hg]100-140October 2024 11:48amBP Mcrmduyoq26 mm[Hg]60-100October 2024 11:48amBMI (Body Mass Index)31.8 kg/g3Gpyqfaz 2024 11:48am Advance Directives Advance Directive Response Recorded Date/ Time Advance Directives No December 20, 2023 3:16pm Insurance Providers Guarantor Janny Fuentes Address [address] [facility] [address]Proibpj Info.Home Phone: Coverage Status Update:2024 Payer Group Member ID Coverage Type Subscriber Relationship to Subscriber Effective Date Expiration Date MMO Id: [id number] Da Id: [id number] [facility] [address] Home Phone: Self[employer] BC/BS [id number] Da Id: [id number] [address] [facility] [address] Home Phone: SelfMedicare [id number] Dahm Id: [id number] [address] [facility] [address] Home Phone: [employer] Plans MCR PFFS [id number] Da Id: [id number] [facility] [address] Home Phone: Self Encounters Encounter Location(s) Arrival/Admit Date Discharge/Departure Date Discharge/Departure Disposition Provider(s) Departed Physician/ Provider Office Visit -[facility] November 28, 2024 1:29pm November 28, 2024 2:17pm Discharged to home care or self care (routine discharge) Robert Cruz DO Departed Physician/ Provider Office Visit -[facility] January 23, 2025 11:33am January 23, 2025 12:20pm Discharged to home care or self care (routine discharge) Robert Cruz DO Non-patient / Non-visit -[facility] ctober 2024 1:09pm [facility] CareOctober 2024 8:58amOctober 2024 8:59amDischarged to home care or self care (routine discharge)Robert Cruz DO Recent Diagnosis Onset Date Admit Date Acute meniscal tear of right knee Unknown November 28, 2024 1:29pm Central stenosis of spinal canal Unknown November 28, 2024 1:29pm Lateral cutaneous nerve of thigh syndrome Unknow n November 28, 2024 1:29pm Leg pain Unknown November 28, 2024 1:29pm Breast mass, left Unknown January 23, 025 11:33am Hypercholesterolemia Unknown January 11:33am Hypertension Unknown January 23 11:33am Hypothyroid Unknown January 23 11:33am Low back pain radiating to right leg Unknown January 23, 2025 11:33am Lumbar spondylosis Unknown January 23, 2025 11:33am Major depression Unknown January 23 11:33am STEPHANIE (obstructive sleep apnea) Unknown Oc tober 2024 11:33am Type 2 diabetes mellitus with hyperglycemia Unkn own January 23, 2025 11:33am Assessments Diagnosis Onset Date Resolution Status Admit Date Acute meniscal tear of right knee acuteAugust 2024 1:29pmCentral stenosis of spinal canalacuteAugust 2024 1:29pmLateral cutaneous nerve of thigh syndromedeletedAugust 2024 1:29pmLeg paindeletedAugust 2024 1:29pmBreast mass, leftacuteOctober 2024 11:33amHypercholesterolemiaacuteOctober 2024 11:33amHypertensionacute January 23, 2025 11:33amHypothyroidacuteOctober 2024 11:33amLow back pain radiating to right legacuteOctober 2024 11:33amLumbar spondylosisacute January 23, 2025 11:33amMajor depressionacuteOct2024 11:33amOSA (obstructive sleep apnea)acuteOct2024 11:33amType 2 diabetes mellitus with hyperglycemiaacuteOct2024 11:33am Plan of Treatment Author Robert Cruz [facility] HospitalAuthoredOctober 2024 1:08pmI have instructed this patient on monthly SBE and recommended yearly mammograms. She had a diagnostic mammogram w/ US completed in Feb, 2024 - right breast lumps palpated by patient She has discovered left sided lumps - recommend diagnostic mammogram and US of left breast I have instructed this patient to follow a comprehensive diabetic treatment plan. I have also instructed them to check their feet daily for calluses and nonhealing ulcers. I have instructed them to have a yearly dilated eye examination. I have reviewed their treatment goals: SBP less than 130, LDL less than 100, FBS less than 140, A1C less than 7%. I have instructed them to maintain a home BS log and bring the results to each of their office visits for review. I have explained the importance of routine monitoring of their A1C, Microalbumin and Lipids. I have explained the benefits of well controlled diabetes in preventing micro and macrovascular complications. Continue Metformin and Glimepiride without interruption I have instructed this patient to consume a healthy, low-fat, low-salt diet. I have also encouraged them to continue exercise with weight loss to achieve/maintain a BMI < 30. I have instructed this patient on the correct procedure for obtaining home BP measurements:? - rest for 5 minutes w/o talking. - positioned w/ feet on floor and arms supported. - average best 2/3 readings w/ goal < 135/85. Update office w/ home readings in 2 weeks. Continue Atenolol and Olmesartan without interruption I have instructed this patient on a low fat, high fiber diet and exercise. I have discussed the primary and secondary prevention benefits attributed to lowering LDL cholesterol. I have also discussed the medical treatment of elevated cholesterol, which is based on the 10 year ASCVD risk. Instructed on a healthy diet and exercise routine. Instructed to continue medical treatment w/o interruption. Instructed to avoid abrupt d/c of medication due to w/d symptoms. Seeing counselor Augment SSRI w/ Bupropion Clinically euthyroid Monitor TSH yearly This patient is aware of the benefits associated with treatment of STEPHANIE. With continued use, the patient is reducing the risk for NM, CVA, HTN, cardiac dysrhythmias and sudden cardiac deaths. With continued use, the patient is also reducing morning headaches, daytime somnolence, fatigue and obesity. This patient is compliant with treatment, wearing the equipment every night for greater than 4 hours. This patient has been instructed to continue use of PAP for treatment of STEPHANIE. I have instructed this patient to avoid bending, twisting or lifting. I have also instructed on use of intermittent heat and ice as needed. They may schedule a massage or gentle manipulation. I instructed them on the safe use of Tylenol, Lidocaine and stretching exercises. I informed them of alternative modes of treatment for severe pain, which may include referral to physical therapy or pain management. MRI: 01/07/25 L3-4 mod left, severe right foraminal stenosis, Instructed on ice/heat w/ Lidocaine and Tylenol. She was instructed to avoid bending, twisting and lifting Scheduled for JANE w/ pain management. Scheduled for Lumbar fusion in February. Author Robert Cruz [facility]23pmInstructed on use of Tylenol, Lidocaine and Voltaren Gel Suggested taking Tramadol for severe pain. ROM exercises, stretching as well as heat/ice as needed May have injured during fall. Continue Lyrica 75mg bid Use Tramadol as needed ROM and stretching exercises, ice/heat and topical crms/patches Update office in couple weeks Doesn't seem to have re-injured her back Continue ROM/stretching execises f/u Neurosurgery May result in impaired healing Legs gives out from time to time. MRI repeated recently - will send for results f/u Orthopedics Future Tests Future scheduled test information is unavailable Pending Tests Pending diagnostic test information is unavailable Future Visits Future appointment information is unavailable Future Procedures Future procedure information is unavailable Future Medications Future medication information is unavailable Patient Instructions Instruction Admit Date Low back pain in adults January 23 11:33am
[2025-02-16 19:11] VITALS: BP 150/74; PULSE 76; TEMP 36.6; O2SAT 100; BMI 30.4
--- OUTSIDE RECORDS SUMMARY | 2025-02-16 19:12 | XMS_ITS | CCD ---
Author Organization [facility] Care Team Providers Care Rn Palliative Care Name Role Phone JENNA GARSIA Admitting Unavailable RICJOBTTI, JENNA T Attending Unavailable LISANDRO MEEKS Consulting [...] Unavailable HOY ., DR MAZARIEGOS Consulting Unavailable HOTerrence ., DR MAZARIEGOS Admitting Unavailable BALL, DR NINO Primary Care Unavailable DEERaisa Attending Unavailable Robert Villasenor DO Primary Care Provider KOLE, OLUREMI A Admitting Unavailable KOLE, OLUREMI A Attending Unavailable TERA TRAN Referring Unavailable ROBERT VILLASENOR Primary Care Unavailable ELOISE VELIZ Consulting Unavailable Robert Villasenor DO Primary Care Provider Robert Villasenor DO Attending Provider [phone] ROBERT VILLASENOR Primary Care Unavailable TOMÁS HELTON Referring Unavailable TOMÁS HELTON Attending Unavailable Hamilton STOCKTON Robert Primary Care Provider [phone] Hamilton STOCKTON Robert Attending Provider Eloise Laen MD Attending Provider Robert Villasenor Attending Unavailable Hamilton Robert Primary Care Unavailable HamiltonRobert Admitting Unavailable Gimadonnaitis , Andvalentine Stephenson Attending Unavailable Giedraitis , Andrius Vytautrobert Attending Unavailable Giedraitis , Andrius Vytautrobert Attending Unavailable Allergies Allergy ClassificationReported Allergen(s)Allergy TypeDate of OnsetReaction(s) Facility (3 sources)Contrast media; Translations: [CONTRAST DYE]Propensity to adverse reactions to drug (disorder)67-66-8991[facility]idkdklThe [facility] ([facility] sources)HYDROmorphone; Translations: [HYDROMORPHONE (BULK)]Drug Allergy 45-16-3626WncinmwgzThe [facility] (20 sources)Latex; Translations: [LATEX]Propensity to adverse reactions to drug (disorder)29-12-6909ZkcbnLdusbhvafThe [facility] (2 sources)Meperidine; Translations: [MEPERIDINE (PF)]Drug Ylnszbl88-90-9333 [facility] Repository (2 sources)Povidone-Iodine; Translations: [POVIDONE-IODINE]Drug Allergy 10-09-8115LfomledveThe [facility] (2 sources)SUMAtriptan; Translations: [SUMATRIPTAN SUCCINATE]Drug Allergy 67-91-6140ZjthyoxicThe [facility] (2 sources)INFLUENZA VACCINE TRI-SP 09-10; Translations: [INFLUENZA VACCINE TRI- SP 09-10]Propensity to adverse reactions to drug (disorder)13-04-9408TusoubkujThe [facility] (3 sources)DHE; Translations: [DHE]Propensity to adverse reactions to drug (disorder)85-06-1325XejnyquftThe [facility] (20 sources)HYDROmorphoneDrug Qucboti98-41-5924Yzgeezj, Unknown Reaction [facility] (20 sources)Iodine; Translations: [iodine]Drug Hsbrflh30-45-8597Fnskgtl, Unknown ReactionBrown [facility] Rep[facility] (20 sources)MeperidineDrug Mzqhdgp23-34-7657Abfzffh, Unknown ReactionFirHolzer Hospital (20 sources)SUMAtriptanDrug Ptljhjh85-17-8646TvqpvMvpqosswmOhiohealth Riverside [facility] Hospital (20 sources)FluadDrug obevjtp66-31-6131Hkommro, Unknown ReactionOhiohealth [facility]ide [facility] Hospital (19 sources)DHEADrug ihrtlku76-46-6534TdzcuzfepdeRuakc [employer] Other (2 sources)HYDROmorphone; Translations: [Dilaudid]Drug Bgcnuhj44-52-9541EaaBrown Memorial Hospital Repository (1 source)MeperidineDrug Uilpfnd51-86-4730GmiBrown Memorial Hospital Repository (2 sources)Plasmin; Translations: [Imitrex]Drug Zjjjnil95-09-7697KlcBrown Memorial Hospital Repository (12 sources)influenza A virus (H1N1) antigen / influenza A virus (H3N2) antigen / influenza B virus antigenDrug Wfqpwwi88-63-0638Fniyfml:FLU VACCINENosaint alexius hospital [employer] Other (12 sources)Contraindication to Flu InjectionPropensity to adverse reactions 44-65-2106Whjwxll:adverse rxn/side effectsPaterson [employer] Other (3 sources)patient allergy list reviewed by nurse or physiciaPropensity to adverse rmelnyixt89-46-7955Slxjowa:DoneNo[employer] Other (10 sources)CalciumDrug Iwjnyst23-77-6417Svrbnzi ReactionOhiohealth Riverside Methodist Hospital (10 sources)Calcium CarbonateDrug Zivuaoh45-52-0064Lrydksa ReactionOhiohealth Riverside Methodist Hospital (10 sources)prasterone (DHEA)Allergy to kahsrrlcs61-95-9963Yyssxwr Reaction [facility] (10 sources)Fluad QuadrivalentAllergy to cuakrewbv36-28-1306Bxxggfz:FLU VACCINE [facility] HospitalComment on above:Onset Date: 11/20/2013 (1 source)Meperidine; Translations: [Demerol HCl][facility] (1 source)flu vaccines; Translations: [flu vaccines]Propensity to adverse reactions (disorder)[facility] Repository (2 sources)Iodine StrongPropensity to adverse reactions to onuo84-76-0989Yeexp [facility] [employer] [facility] (2 sources)MeperidineDrug Sfyyrzp58-80-5366Nfvlr (See Comments)[facility] Medications Current Medications MedicationDrug Class(es)DatesSig (Normalized)Sig (Original)acetaminophen 325 mg oral tablet (2 sources)Start: 56-71-9905Iahof: 15-62-8955untnwdezceulu (TYLENOL) tablet 650 mgatenolol 50 mg oral tablet (20 sources)beta-Adrenergic BlockerStart: 63-71-9779lrdp 1 tablet by mouth once dailyStart: 04-33-224567 mg, Oral, DAILY, First dose on 07/07/24 at 1000, Until Discontinued, Hold for HR less then 60, On hold since Tue07/10/2024 at 1409 until manually unheldStart: 03-28-2024 End: 63-83-2715hvjs 1 tablet by mouth once dailyAtenolol 50 mg tablet Discontinued 0 .ROUTE .COMPLEX 90 3 March 28, 2024 8:00am August 14, 2024 7:54pm TAKE 1 TABLET BY MOUTH ONCE DAILYStart: 08-04-2022 End: 83-39-0021wvpw 1 tablet by mouth once dailyAtenolol 50 mg tablet Discontinued 50 MG PO Daily December 20, 2023 12:00am March 28, 2024 8:00am 12 hr buPROPion hydrochloride 150 mg extended release oral tablet (6 sources)AminoketoneStart: 10-11-2024 End: 72-37-5324finq 1 tablet by mouth once daily in the morningcitalopram 40 mg oral tablet (20 sources)Serotonin Reuptake InhibitorStart: 23-41-6837xkfh 1 tablet by mouth once dailyStart: 67-36-0486cggq 20 mg by mouth once daily20 mg, Oral, DAILY, First dose on 07/07/24 at 0900, Until DiscontinuedStart: 10-22-2022 End: 42-39-7356omcl 1 tablet by mouth once daily at bedtimeCitalopram 40 mg tablet Discontinued 40 MG PO Daily at bedtime October 18, 2023 12:00am October 18, 2023 8:38ametodolac 500 mg oral tablet (20 sources)Nonsteroidal Anti-inflammatory DrugStart: 42-17-4464hwbt 1 tablet by mouth twice dailyStart: 07-08-2024 End: 32-44-7797fzpt 1 tablet by mouth twice daily as needed for headacheEtodolac 500 mg tablet Discontinued 0 .ROUTE .COMPLEX 60 2 July 08, 2024 10:42am August 14, 2024 7:54pm TAKE 1 TABLET ORALLY TWICE DAILY NEEDED FOR HEADACHE FOR 30 DAYSStart: 12-20-2023 End: 54-31-0892ojct 1 tablet by mouth twice daily as needed for headacheEtodolac 500 mg tablet Discontinued 500 MG PO Twice daily as needed for headache 60 30 2 April 06, 2024 11:06am July 08, 2024 10:42amfluconazole 100 mg oral tablet (16 sources)Azole AntifungalStart: 33-66-0414kimf 1 tablet by mouth every twenty-four hoursFluconazole 100 MG 1 tablet Orally daily for 7 days August, Activeglimepiride 4 mg oral tablet (20 sources)SulfonylureaStart: 29-77-1684oflm 1 tablet by mouth once dailyStart: 03-28-2024 End: 83-12-6201bbzf 1 tablet by mouth once daily at breakfastGlimepiride 4 mg tablet Discontinued 0 .ROUTE .COMPLEX 90 3 March 28, 2024 8:00am August 14, 2024 7:54pm TAKE 1 TABLET BY MOUTH DAILY WITH BREAKFAST OR FIRST MAIN MEAL OF THE DAYStart: 12-20-2023 End: 65-53-4501Otipkwvhrit 4 mg tablet Discontinued 1 TAB PO Daily December 20, 2023 12:00am March 28, 2024 8:00am FreeTextSi tablet with breakfast or the first main meal of the day Orally Once a day; Note:Source Status: Taking; Refills: 3; Qty: 90 Tablet; Provider: Hamilton Alonzo (rdna) 1 mg injection (1 source)Antihypoglycemic AgentStart: mg, SubCUTAneous, PRN, Starting on Tue07/10/24 at 1102, Until Discontinued, Low blood sugar, Blood glucose LESS THAN 70 mg/dL and patient NOT ALERT or NPO and does not have IV access., After administration, attempt intravenous access and start dextrose 10% at 100 mL/hr. Repeat blood glucose in 15minutes x 2 and notify provider. Reconstitute powder for injection by adding 1 mL of retail sales director-supplied sterile diluent or sterile water for injection to a vial containing 1 mg of the drug, to provide solutions containing 1 mg/mL. Shake vial gently to dissolve. Glucose (3 sources)Start: 68-07-2033GfxllNKIlvx, at 100 mL/hr, CONTINUOUS PRN, if blood [...] mg/dL after 60 minutes, discontinue dextrose 10% infusion.Start: 58-40-6193ccsxmdbt bolus 10% 125 mLStart: 49-02-373973 g (4 tablet), Oral, PRN, Starting on Tue07/10/24 at 1102, Until Discontinued, Low blood sugar, If blood glucose is LESS THAN 70 mg/dL and patient is alert and tolerating oral. Give 4 tablets (16g)Repeat blood glucose in 15 minutes. If blood glucose is LESS THAN 70 mg/dL, repeat treatment and recheck blood glucose in 15 minutes x 2. If blood glucose remains LESS THAN 70 mg/dL, notify provider.lisinopril 5 mg oral tablet (1 source)Angiotensin Converting Enzyme InhibitorStart: 99-28-4744mdte 5 mg by mouth once daily5 mg, Oral, DAILY, First dose on Tue07/06/24 at 2015, Until Discontinued, On hold since Tue07/10/2024 at 1409 until manually unheldMagnesium Aspart,Citrate,Oxide (2 sources)Start: 19-94-0920zwmb 400 mg by mouth once dailyMagnesium Aspart,Citrate,Oxide Active 400 MG PO Daily December 20, 2023 12:00amMagnesium Aspart,Citrate,Oxide 400 mg magnesium capsule (8 sources)Start: 13-18-9203udml 1 capsule by mouth once dailyStart: 12-20-2023 take 1 capsule by mouth once dailyMagnesium Aspart,Citrate,Oxide 400 mg magnesium capsule Active 400 MG PO Daily December 20, 2023 12:00am Complies with drug therapyStart: 95-36-1894mwvx 1 capsule by mouth once dailyMagnesium Aspart,Citrate,Oxide 400 mg magnesium capsule Active 400 MG PO Daily December 20, 2023 12:00amStart: 56-85-2545hdtc 1 capsule by mouth once dailyMagnesium Aspart,Citrate,Oxide 400 mg magnesium capsule Active 400 MG PO Daily December 19, 2023 11:00pm50 ml magnesium sulfate 40 mg/ml injection (1 source)Start: ,000 mg, IntraVENous, at 25 mL/hr, Administer over [...] 2 doses Infuse at 1,000 mg/hr Repeat Maglevel 1 hour after final administration Protocol not for use in Patients with CrCl less than 30ml/min metFORMIN hydrochloride 500 mg oral tablet (20 sources)BiguanideStart: 35-89-4347zoys 1 tablet by mouth twice daily at mealtimeStart: 03-28-2024 End: 93-85-6238cbcz 1 tablet by mouth twice dailyMetformin 500 mg tablet Discontinued 0 .ROUTE .COMPLEX 180 3 March 28, 2024 8:00am August 14, 2024 7:54pm TAKE 1 TABLET BY MOUTH WITH A MEAL TWICE DAILYStart: 10-13-2022 End: 12-86-4332mgym 1 tablet by mouth twice dailyMetformin 500 mg tablet Discontinued MG PO December 20, 2023 12:00am March 28, 2024 8:00am FreeT extSi tablet with a meal Orally two times daily; Note: Source Status: Taking; Refills: 3; Provider: Hamilton Brice (PF) injection 2 mg (1 source)Start: 91-07-7147ilhtgfsd (PF) injection 2 mgolmesartan medoxomil 20 mg oral tablet (20 sources)Angiotensin 2 Receptor BlockerStart: 16-80-7472pzgp 1 tablet by mouth once dailyStart: 03-28-2024 End: 38-57-7499ebtm 1 tablet by mouth once dailyOlmesartan 20 mg tablet Discontinued 0 .ROUTE .COMPLEX 90 3 March 28, 2024 9:29pm August 14, 2024 7:54pm TAKE 1 TABLET BY MOUTH ONCE DAILYStart: 03-28-2024 End: 02-37-0465eybn 1 tablet by mouth once dailyOlmesartan 20 mg tablet Discontinued 20 MG PO Daily March 28, 2024 1:00am March 28, 2024 9:29pm Start: 12-23-2022 End: 10-22-0577bzms 1 tablet by mouth once dailyOlmesartan 20 mg tablet Discontinued 20 MG PO Daily December 20, 2023 12:00am December 20, 2023 4:17pm ondansetron (ZOFRAN-ODT) disintegrating tablet 4 mg (1 source)Start: 06-56-1208jwmhjdavnvc (ZOFRAN-ODT) disintegrating tablet 4 mg polyethylene glycol 3350 17333 mg powder for oral solution (1 source)Osmotic LaxativeStart: 61-75-912567 g, Oral, DAILY, First dose on 07/08/24 at 2014, Until Discontinued, Stir and dissolve one packet of powder (17 g) in any 4 to 8 ounces of beverage (cold, hot or room temperature) then drink, Post-opPotassium Chloride (1 source)Start: 59-35-9514ucikuejdk chloride (KLOR-CON M) extended release tablet 40 mEqpregabalin 75 mg oral capsule (13 sources)Start: 19-86-1567unyi 1 capsule by mouth twice dailyStart: 08-14-2024 End: 37-39-3089wdqs 1 capsule by mouth twice dailyPregabalin 75 mg capsule Discontinued 75 MG PO Twice daily 180 90 August 29, 2024 4:45pm September 11:03am Herniation of intervertebral disc of lumbar spine Other intervertebral disc displacement, lumbar regionStart: 07-25-2024 End: 82-33-6058domx 1 capsule by mouth twice dailyPregabalin 50 mg capsule Discontinued 50 MG PO Twice daily 6 3 0 July 25, 2024 12:00am August 14, 2024 7:54pm Herniation of intervertebral disc of lumbar spine Other intervertebral disc displacement, lumbar regionrizatriptan 10 mg oral tablet (17 sources)Serotonin-1b and Serotonin-1d Receptor AgonistStart: 34-01-9819xsvf 3 tablets by mouth every twenty-four hours as neededStart: 48-37-5320ybpq 1 tablet by mouth every two hours as needed for headacheMaxalt-OIL GAS AND PIPE TESTER 10 MG 1 tablet Orally PRN headache, may repeat q 2 hours as needed, max 30mg/24 hours for 90 days Aware of allergy - patient has taken in past with no problems, please fill Oct, ActiveRizatriptan Benzoate 10 MG TAKE ONE TABLET BY MOUTH NEEDED FOR HEADACHE. MAY REPEAT EVERY TWO HOURS NEEDED, MAX 20 MG/24 HOURS Orally Once a day prn headache for 90 days Active Completed/Discontinued Medications MedicationDrug Class(es)DatesSig (Normalized)Sig (Original)acetaminophen 325 mg / HYDROcodone bitartrate 5 mg oral tablet (15 sources)Opioid AgonistStart: 39-79-1220PFQZQlpyezq-acetaminophen (NORCO) 5- 325 MG per tablet 1 tabletStart: 07-04-2024 End: 98-10-2124vryc 1 tablet by mouth every four to six hours as needed for pain Hydrocodone-Acetaminophen 5-325 mg tablet Discontinued 1 TAB PO EVERY 4-6 HOURS as needed for pain 28 7 0 July 18, 2024 August 14, 2024 7:50pm Low back pain Low back pain, edpgyrfntgh35 ml albumin human, retirement 250 mg/ml injection (1 source)Human Serum AlbuminStart: 07-11-2024 End: g, IntraVENous, ONCE, 1 dose, On Tue07/11/24 [...] hypoproteinemia amitriptyline hydrochloride 10 mg oral tablet (17 sources)Tricyclic AntidepressantStart: 12-20-2023 End: 42-53-5762rwge 1 tablet by mouth once daily at bedtimeAmitriptyline 10 mg tablet Discontinued 10 MG PO Daily at bedtime December 20, 2023 12:00am November 242023 3:47pm 1 TO 2Start: 96-48-1303uuzn 1-2 tablets by mouth once at bedtimeAmitriptyline HCl 10 MG 1 - 2 tablets at bedtime Orally q HS for 30 days Apr, Activebisacodyl 5 mg delayed release oral tablet (2 sources)Stimulant LaxativeStart: 02-81-2633eljv 5 mg by mouth once daily5 mg, Oral, DAILY, First dose on Tue07/08/24 at 2015, Until Discontinued, Do not crush or break., Post-opStart: 06-02-0640wili 10 mg rectal route once daily as needed for jgrepxoivvcn77 mg, Rectal, DAILY PRN, Starting on Tue07/08/24 at 1950, Until Discontinued, Constipation, Secondline therapy for constipation, After 24 hours, if no result from first line PRN therapy, give second line therapy in combination with first line therapy., Post-opceFAZolin (ANCEF) 2,000 mg in sterile water 20 mL IV syringe (1 source)Start: 07-09-2024 End: 52,000 mg, IntraVENous, EVERY 8 HOURS, 2 doses, First dose on Tue07/09/24 at 0045, Last dose on Tue07/09/24 at 0845, Antimicrobial Indications: Surgical Prophylaxis, Administer over 5 mins. Reconstitute 2 g vial with 20 mL Sterile Water. Withdraw entire contents., Post-opclonazePAM 1 mg oral tablet (20 sources)BenzodiazepineStart: 46-80-7230dkce 1 mg by mouth once daily1 mg, Oral, NIGHTLY, First dose on Tue07/06/24 at 2200, Until DiscontinuedStart: 12-20-2023 End: 89-22-1271femu 1.5 mg by mouth once daily at bedtimeClonazepam (Klonopin) 1 mg tablet Discontinued 1.5 MG PO Daily at bedtime 135 90 1 August 14, 2024 7:48pm February 06, 2025 1:04pm Generalized anxiety disorder Generalized anxiety disorderStart: 06-13-2023 End: 71-98-8102tivf 3 tablets by mouth once daily 30 minutes before bedtime Clonazepam 0.5 mg tablet Discontinued 1.5 MG PO Daily at bedtime 270 90 1 June 13, 2023 1:00am December 20, 2023 4:16pm Generalized anxiety disorder Generalized anxiety disorder administer 30 minutes before bedtimeStart: 06-13-2023 End: 65-80-7328nqlr 1.5 mg by mouth once daily 30 minutes before bedtime Clonazepam Discontinued 1.5 MG PO Daily at bedtime 270 90 June 13, 2023 1:00am December 20, 2023 4:16pm administer 30 minutes before bedtimeStart: 58-78-0523dkjl 3 tablets by mouth once daily at bedtimeclonazePAM 0.5 MG TAKE 3 TABLETS BY MOUTH AT BEDTIME Orally Once a day for 90 days May, Active Start: 65-80-1100azwj 3 tablets by mouth once daily at bedtimeclonazePAM 0.5 MG TAKE 3 TABLETS BY MOUTH AT BEDTIME Orally Once a day for 30 days Dec, ActiveStart: 30-70-8726ffap 3 tablets by mouth at bedtimeclonazePAM 0.5 MG TAKE 3 TABLETS BY MOUTH AT BEDTIME for 30 days Sep, Activetake 1 tablet by mouth once daily as neededclonazePAM (KLONOPIN) 1 MG tablet Take 1 tablet by mouth nightly as needed (Restless leg). ActivecloNIDine hydrochloride 0.1 mg oral tablet (17 sources)Central alpha-2 Adrenergic AgonistStart: 98-29-3178ydgd 1 tablet by mouth twice daily as neededcloNIDine HCl 0.1 MG 1 tablet Orally twice daily Jul, Not-Taking/PRNcyclobenzaprine hydrochloride 10 mg oral tablet (2 sources)Muscle RelaxantStart: 07-07-2024 End: 04-27-3011ntoz 10 mg by mouth three times daily as zfszyk96 mg, Oral, 3 TIMES DAILY PRN, Starting on 07/08/24 at 1950, Until Discontinued, Muscle spasms,Post-opdocusate sodium 50 mg / sennosides, retirement 8.6 mg oral tablet (1 source)Start: 29-38-8262lmaz 1 tablet by mouth twice daily1 tablet, Oral, 2 TIMES DAILY, First dose on Tue07/08/24 at 2100, Until Discontinued, Post-op2 ml fentaNYL 0.05 mg/ml injection (2 sources)Opioid AgonistStart: 07-08-2024 End: 28-35-231859 mcg, IntraVENous, EVERY 5 MIN PRN, 4 doses, Starting on Tue07/08/24 at 1902, Until Tue07/08/24 at 1949, Pain Severe (7-10), If oral and IV narcotics ordered, use oral first and only use IV if oralis ineffective or cannot take oral. Do Not give oral and IV within 1 hour of each other unless specifically ordered., PACU onlygabapentin 100 mg oral capsule (3 sources)Anti-epileptic AgentStart: 98-24-5170bbms 200 mg by mouth twice daily 200 mg, Oral, 2 TIMES DAILY, First dose on 07/07/24 at 1000, Until DiscontinuedStart: 91-86-9233vbrx 2 capsules by mouth twice dailygabapentin (NEURONTIN) 100 MG capsule Take 2 capsules by mouth 2 times daily. 06/30/2024 ActiveglipiZIDE 10 mg oral tablet (1 source)SulfonylureaStart: 01-78-246180 mg, Oral, DAILY BEFORE BREAKFAST, First dose on Tue07/11/24 at 0700, Until Discontinued, Substituted for glimepiride (AMARYL).1 ml hydrALAZINE hydrochloride 20 mg/ml injection (1 source)Arteriolar VasodilatorStart: 54-13-816575 mg, IntraVENous, EVERY 4 HOURS PRN, Starting on Tue07/06/24 at 1953, Until Discontinued, SBP > 160insulin lispro 100 unt/ml injectable solution (2 sources)Insulin AnalogStart: 07-06-2024 End: 99-51-57014-16 Units, SubCUTAneous, 4 TIMES DAILY BEFORE MEALS & NIGHTLY, First dose on Tue07/10/24 at 1130, Until Discontinued, High Dose Corrective Algorithm Glucose: Dose: 70-179 No Insulin 180-249 4 Units 250-299 8 Units 300-349 12 Units Over 349 16 Units and notify physician Administer as soon as possible within 60 minutes of last blood glucose checklevothyroxine sodium 0.125 mg oral tablet (20 sources)l-ThyroxineStart: 03-28-2024 End: 90-67-1918cbqe 1 tablet by mouth once daily in the morningLevothyroxine 125 mcg tablet Discontinued 0 .ROUTE .COMPLEX 90 3 March 28, 2024 8:00am August 14, 2024 7:54pm TAKE 1 TABLET BY MOUTH ONCE DAILY IN THE MORNING ON AN EMPTY STOMACHStart: 12-20-2023 End: 95-01-8968idug 1 capsule by mouth once dailyLevothyroxine 125 mcg capsule Discontinued 125 MCG PO Daily December 20, 2023 12:00am March 8:00am Start: 38-56-3284pxbd 1 tablet by mouth once dailyStart: 83-04-2404epao 1 tablet by mouth once daily in the morningLevothyroxine Sodium 125 MCG 1 tablet in the morning on an empty stomach Orally Once a day Jul, ActiveLORazepam 0.5 mg oral tablet (1 source)BenzodiazepineStart: 07-08-2024 End: 98-19-9679bvos 0.5 mg by mouth once0.5 mg, Oral, ONCE, 1 dose, On 07/08/24 at 1500Start: 07-08-2024 End: 51-57-7285wscs 0.5 mg by mouth once0.5 mg, Oral, ONCE, 1 dose, On 07/08/24 at 1500magnesium hydroxide 80 mg/ml oral suspension (1 source)Start: 44-10-7014wxue 30 mL by mouth once daily as needed for jlpjvgaacoba91 mL, Oral, DAILY PRN, Starting on 07/08/24 at 1950, Until Discontinued, Constipation, First line therapy for constipation., Post-op1 ml morphine sulfate 2 mg/ml cartridge (1 source)Opioid AgonistStart: 07-06-2024 End: mg, IntraVENous, EVERY 4 HOURS PRN, Starting on Tue07/06/24 at 1954, Until 07/08/24 at 1811, Pain Severe (7-10), Allowed for higher pain score per patient request, If oral and IV narcotics ordered, use oral first and only use IV if oral is ineffective or cannot take oral. Do Not give oral and IV within 1 hour of each other unless specifically ordered.naloxegol 12.5 mg oral tablet (1 source)Opioid AntagonistStart: 07-16-5865sttr 1 dose by mouth every hour at qlugeocf79.5 mg, Oral, DAILY BEFORE BREAKFAST, First dose on Tue07/10/24 at 0700, Until Discontinued, Administer on an empty stomach at least 1 hour prior to or 2 hours after the first meal of the day. Avoidconsumption of grapefruit or grapefruit juice during treatment.1 ml naloxone hydrochloride 0.4 mg/ml injection (1 source)Opioid AntagonistStart: 50.4 mg, IntraVENous, PRN, Starting on Tue07/08/24 at 1811, Until Discontinued, Opioid Reversalnaratriptan 2.5 mg oral tablet (17 sources)Serotonin-1b and Serotonin-1d Receptor AgonistStart: 12-20-2023 End: 28-48-0077jwuk 1 tablet by mouth every four hours as needed for headache Naratriptan 2.5 mg tablet Discontinued 2.5 MG PO Every 4 hours as needed for migraine headache December 20, 2023 12:00am December 20, 2023 4:16pmStart: 75-70-3554Rudqxdmafam HCl 2.5 MG 1 tablet Orally Once a day PRN headache, may repeat after 2 hours for 30 days Apr, Activepravastatin sodium 20 mg oral tablet (20 sources)HMG-CoA Reductase InhibitorStart: 03-28-2024 End: 13-12-9206sydu 1 tablet by mouth once dailyPravastatin 20 mg tablet Discontinued 0 .ROUTE .COMPLEX 90 3 March 28, 2024 8:01am August 14, 2024 7:54pm TAKE 1 TABLET BY MOUTH ONCE DAILYStart: 12-20-2023 End: 56-89-6269fzgp 1 tablet by mouth once dailyPravastatin 40 mg tablet Discontinued 40 MG PO Daily December 20, 2023 12:00am March 28, 2024 8:02am Start: 88-13-5471qfur 1 tablet by mouth once daily at bedtimepredniSONE 20 mg oral tablet (9 sources)Start: 07-25-2024 End: 95-67-1819swtk 1 tablet by mouth three times dailyPrednisone 20 mg tablet Discontinued 20 MG PO As Directed 9 3 0 July 25, 2024 12:00am July 7:53pm 1 tab tid w/ food x 3 daysStart: 40-50-1846fprojvABHY 20 MG 1 tablet Orally tid w/ food x 1 day then bid w/ food x 2 days then qd w/ food x 2 days for 5 days Apr, Activetake 1 tablet by mouth once daily, then take 3 tablets by mouth once daily, then take 2 tablets by mouth once daily, then take 1 tablet by mouth once dailypredniSONE (DELTASONE) 10 MG tablet Take 1 tablet by mouth daily Started on Tuesday, take 3 tabs daily x3days, 2 tabs daily x3 days, 1 tab daily x3days. Vaulrq1191 ml sodium chloride 9 mg/ml injection (8 sources)Start: 85-18-5692Fwtku: 07-06-2024 End: 83-49-6123258 mL (6.3 mL/kg), IntraVENous, at 247.9 mL/hr, Administer over 121 Minutes, ONCE, On Tue07/10/24 at 1430, For 1 doseStart: 07-06-2024 End: -40 mL, IntraVENous, EVERY 12 HOURS SCHEDULED (2 times per day), First dose on Tue07/08/24 at 2100, Until Discontinued, For Line Patency: Peripheral IV = 5 mL; Midline or Central Line = 10 mL/lumen.If following IV push medication, administer flush at same rate as the IV push. Flush volume is deter mined by type of infusion therapy being given. For non-viscous solutions use: Peripheral IV = 5 mL Midline or Central Line = 10 mL/lumen For viscous solutions (i.e. blood components, parenteral nutrition, contrast media, or after obtaining blood sample) use: Peripheral IV = 10 mL Midline or CentralLine = 20 mL/lumen, Post-opsodium zirconium cyclosilicate 32019 mg powder for oral suspension (1 source)Start: 07-09-2024 End: 69-76-705701 g, Oral, ONCE, 1 dose, On Tue07/09/24 at 0800, Empty entire contents of the packet(s) into a glass with 3 tablespoons (45 mL) of water. Stir well and drink immediately; if powder remains in the glass, add water, stir and drink immediately; repeat until no powder remains. Administer other oral med ications 2 hours before or 2 hours after dose.Start: 07-09-2024 End: 18-23-303218 g, Oral, ONCE, 1 dose, On Tue07/09/24 at 0800, Empty entire contents of the packet(s) into a glass with 3 tablespoons (45 mL) of water. Stir well and drink immediately; if powder remains in the glass, add water, stir and drink immediately; repeat until no powder remains. Administer other oral med ications 2 hours before or 2 hours after dose.tiZANidine 4 mg oral tablet (20 sources)Central alpha-2 Adrenergic AgonistStart: 06-15-2024 End: 90-93-5651pqll 1 tablet by mouth twice dailyTizanidine 4 mg tablet Discontinued 0 .ROUTE .COMPLEX 180 1 June 15, 2024 9:55am August 14, 2024 7:53pm TAKE 1 TABLET BY MOUTH TWICE A DAY FOR MUSCLE SPASTICITYStart: 02-29-2024 End: 03-78-8308yvok 1 capsule by mouth twice dailyTizanidine 4 mg capsule Discontinued 4 MG PO Twice daily 180 90 1 February 29, 2024 5:11pm June 15, 2024 9:55am muscle spasticityStart: 12-16-2023 End: 25-03-2003dxwv 0.5-1 tablets by mouth once daily at bedtimeTizanidine 4 mg capsule Discontinued 4 MG PO Daily at bedtime as needed for muscle spasticity 90 900 December 16, 2023 12:52pm February 29, 2024 5:11pm take 1/2 to 1 tablet at QHSStart: 06-17-2023 End: 79-76-5908oeap 0.5 tablet by mouth once daily at bedtimeTizanidine 4 mg capsule Discontinued 4 MG PO Daily at bedtime as needed for muscle spasticity 90 0 June 17, 2023 1:40pm December 16, 2023 1:19pm take 1/2 tablet at QHStake 1 tablet by mouth twice daily as neededtiZANidine (ZANAFLEX) 4 MG tablet Take 1 tablet by mouth 2 times daily as needed Activetake 0.5-1 tablets by mouth once daily at bedtimetiZANidine HCl 4 MG TAKE 1/2 TO 1 TABLET BY MOUTH EVERY DAY AT BEDTIME for 90 ActivetraMADol hydrochloride 50 mg oral tablet (14 sources)Opioid AgonistStart: 09-13-2024 End: 17-88-0795zvgd 1 tablet by mouth every eight hours as needed for pain Tramadol 50 mg tablet Discontinued 50 MG PO Every 8 hours as needed for pain 40 30 0 November 28, 2024 2:13pm December 19, 2024 6:06pm Right knee pain Pain in right knee Problems Active Problems Problem ClassificationProblemDateDocumented DateEpisodic/ChronicAcute posthemorrhagic anemia (10 sources)Acute posthemorrhagic anemia; Translations: [Acute posthemorrhagic anemia]87-75-9140KbmqoxqwTorjreh disorders (20 sources)Generalized anxiety disorder; Translations: [Generalized anxiety disorder]01-87-2951MeglpleQnudezgrl and vision defects (4 sources)Visual hallucinations; Translations: [Visual hallucinations] 97-57-4217GxmvdbxvWvnhewlunicqn of surgical procedures or medical care (1 source)Postprocedural hypothyroidism; Translations: [POSTPROCEDURAL HYPOTHYROIDISM]Onset: 76-81-9984CbobppsCvgvgcbm mellitus with complications (20 sources)Type 2 diabetes mellitus; Translations: [Type 2 diabetes mellitus with hyperglycemia]Onset: 23-69-1425LgfgqsjSojzqimi of white blood cells (17 sources)Leukopenia; Translations: [Decreased white blood cell count, unspecified]ChronicDisorders of lipid metabolism (20 sources)Hypercholesterolemia; Translations: [Pure hypercholesterolemia, unspecified]ChronicDiverticulosis and diverticulitis (17 sources)Diverticular disease of colon; Translations: [Diverticulosis of intestine, part unspecified, without perforation or abscess without bleeding] ChronicE Codes: Adverse effects of medical drugs (4 sources)Adverse effect of other parasympatholytics [anticholinergics and antimuscarinics] and spasmolytics,subsequent encounter; Translations: [Sedative adverse reaction]EpisodicEsophageal disorders (17 sources)Gastro-esophageal reflux disease with esophagitis; Translations: [Gastroesophageal reflux disease with esophagitis without hemorrhage]Chronic Essential hypertension (20 sources)Essential hypertension; Translations: [Essential (primary) hypertension]Onset: 58-03-6189BxydxjpZrzlb and electrolyte disorders (8 sources)Low blood pressure; Translations: [Hypovolemia]89-14-9236Ebnhcykm Headache; including migraine (12 sources)Chronic intractable migraine without aura; Translations: [Chronic migraine without aura, intractable, without status migrainosus]ChronicJoint disorders and dislocations; trauma-related (4 sources)Unspecified internal derangement of right knee; Translations: [UNS INTERNAL DERANGEMENT RIGHT KNEE]Onset: 06-06-4286IqhzkgfNecax disorders and dislocations; trauma-related (5 sources)Other tear of medial meniscus, current injury, right knee, initial encounter; Translations: [Acute tear of meniscus of right knee]Onset: 08-26-2022 64-53-1431ZfttvujgNaip disorders (20 sources)Recurrent major depression in full remission; Translations: [Major depressive disorder, recurrent, in full remission]29-75-7390IkdieujKijqmvb (1 source)Candidiasis of skin and nailEpisodicNonmalignant breast conditions (20 sources)Lump in left breast; Translations: [Unspecified lump in the left breast, unspecified quadrant]Onset: 880605-58-9558LhbgzcweTuwombokzjdzex (14 sources)Primary osteoarthritis, left shoulder; Translations: [Primary osteoarthritis, right shoulder]Onset: 872136-55-9802OvykixiMgezk connective tissue disease (8 sources)History of cervical spine fusion; Translations: [Arthrodesis status] 05-52-1867PzbagjnqOidzb connective tissue disease (4 sources)Arthrodesis status; Translations: [Arthrodesis status]06-25-2024 EpisodicOther connective tissue disease (3 sources)Pain in lower limb; Translations: [Pain in leg, unspecified] 99-77-9780RwpmpvooEscbn nervous system disorders (3 sources)Meralgia paresthetica; Translations: [Meralgia paresthetica, unspecified lower limb]98-67-0175NbkkifmZrwen nervous system disorders (1 source)Dysarthria and anarthriaEpisodicOther non-traumatic joint disorders (1 source)Pain in right shoulderEpisodicOther non-traumatic joint disorders (1 source)Pain in left shoulderEpisodicOther non-traumatic joint disorders (3 sources)Swelling of knee joint; Translations: [Effusion, right knee] 72-04-8678XssfmgzgKavjb non-traumatic joint disorders (4 sources)Pain in right knee; Translations: [Right knee pain]15-75-2054Qlnsncmv Other nutritional; endocrine; and metabolic disorders (9 sources)Body mass index 30+ - obesity; Translations: [Body mass index (BMI) 33.0-33.9, adult]ChronicOther nutritional; endocrine; and metabolic disorders (9 sources)Obesity caused by energy imbalance; Translations: [Other obesity due to excess calories]ChronicOther screening for suspected conditions (not mental disorders or infectious disease) (8 sources)Encounter for screening mammogram for malignant neoplasm of breast; Translations: [Prerenal azotemia]Onset: 94-72-0839NjmnimtmKzsnx skin disorders (4 sources)Localized swelling, mass and lump, left upper limb; Translations: [Mass of left axilla]01-66-3133YtymjzkoBedffbuc codes; unclassified (20 sources)Obstructive sleep apnea syndrome; Translations: [Obstructive sleep apnea (adult) (pediatric)]31-30-2686AwbqbnfExksgmbj codes; unclassified (2 sources)Obstructive sleep apnea (adult) (pediatric); Translations: [Obstructive sleep apnea (adult)(pediatric)]ChronicSpondylosis; intervertebral disc disorders; other back problems (20 sources)Lumbosacral spondylosis with radiculopathy; Translations: [Other spondylosis with radiculopathy, lumbosacral region]ChronicComment on above:MRI: 01/07/25L3-4 mod left, severe right foraminal stenosis,Spondylosis; intervertebral disc disorders; other back problems (20 sources)Cervicalgia; Translations: [Neck pain]Onset: 43-27-6999Reyhcmcv Sprains and strains (1 source)Strain of unspecified muscle(s) and tendon(s) at lower leg level, right leg, subsequent encounterEpisodicThyroid disorders (20 sources)Autoimmune thyroiditis; Translations: [Autoimmune thyroiditis]Onset: 16-15-0355MkzqrowUjzqrqwztvgd (3 sources)CONTACT W/AND (SUSP) EXPOS COVID-19; Translations: [CONTACT W/AND (SUSP) EXPOS COVID-19]Onset: 11-01-2021 Past or Other Problems Problem ClassificationProblemDateDocumented DateEpisodic/ChronicEsophageal disorders (1 source)Esophageal disordersMalaise and fatigue (4 sources)Other fatigue; Translations: [OTHER FATIGUE]Onset: 90-48-2659[place]nv[place] Unclassified (1 source)CONTACT W/AND (SUSP) EXPOS COVID-19; Translations: [CONTACT W/AND (SUSP) EXPOS COVID-19]Onset: 10-28-2021 Results Test NameValueInterpretationReference RangeFacilityMammography reportOrdered By: Nam London on 97-08-5770Ndjdgfbkgh imaging studyK[facility] [address] [place] [address] Mammography Report Signed Patient: Carroll Fuentes MR#: [id number] : 1960 Acct:[id number] Age/Sex: 64 / F Adm Date: Loc: [place] Room: Type: [facility] Attending Dr: Robert Villasenor DO Ordering Provider: Robert Villasenor DO Date of Service: 02/13/25 Procedure(s): MM diagnostic mammo BI w/CAD; US breast LT limited Accession Number(s): ([id number]) US/ breast LT limited: N63.20 - ([id number]) MM/MM diagnostic mammo BI w/CAD: N63.20 - Copies to: Robert Villasenor DO~ DIAGNOSTIC BILATERAL MAMMOGRAM - FULL FIELD DIGITAL [...] London M.D. 02/13/2025 9:51 AM Dictation Location: [facility] Dictated By: Nam London II, MD 02/13/2533 Signed By: 02/13/25 0951 [facility] Work Phone: us breast LT limitedon 47-93-9356UG breast LT limited [facility] [address] [place] [address] Mammography Report Signed Patient: Carroll Fuentes MR#: [id number] 3 : 1960 Acct:[id number] Age/Sex: 64 / F Adm Date: 02/13/25 Loc: [place] Room: Type: [facility] [address] Attending Dr: Robert Villasenor DO Ordering Provider: Robert Villasenor DO Date of Service: 02/13/25 Procedure(s): MM diagnostic mammo BI w/CAD; US breast LT limited Accession Number(s): ([id number]) US/US breast LT limited: N63.20 - ([id number]) MM/MM diagnostic mammo BI w/CAD: N63.20 - Copies to: Robert Villasenor DO DIAGNOSTIC BILATERAL MAMMOGRAM - FULL FIELD DIGITAL WITH TOMOSYNTHESIS CLINICAL DATA: Lateral left breast pain Tomosynthesis Craniocaudal and mediolateral oblique views of the bilateral breasts were obtained using low-dose digital technique. Comparison is made to prior studies from 02/28/2024 and 2023. This examination was reviewed with the aid of CAD. Scattered fibroglandular tissue is noted. Benign-appearing calcifications are present. There are no dominant masses, typically malignant calcifications or architectural distortion. [...] London M.D. 02/13/2025 9:51 AM Dictation Location: [facility] Dictated By: Nam London II, MD 02/13/25 0933 Signed By: 02/13/25 0951[facility] Physician GroupActivated partial thromboplastin time (aPTT) in platelet poor plasma by coagulation aOrdered By: Eloise Zambrano on 18-13-7727mUZN Coag (PPP) [Time]25.9 s22.3-36.2FWexner Medical Center Basophils Auto (Bld) [#/Vol]Ordered By: Eloise Zambrano on 68-98-5282Jlfnnujal (Bld) [#/Vol]0.0 10 3/uL0.0-0.1FWexner Medical CenterBasophils/100 WBC Auto (Bld)Ordered By: Eloise Zambrano on 26-25-2734Boxaguxge/100 WBC (Bld)0.4 % 0.2-2.0[facility] HospitalEosinophils/100 WBC Auto (Bld)Ordered By: Eloise Zambrano on 52-50-7809Pskgbrcykrd/100 WBC (Bld)3.4 %0.9-7.0[facility] HospitalErythrocyte distribution width Auto (RBC) [Ratio]Ordered By: Eloise Zambrano on 21-60-7615Ilosyvpbdmr distribution width (RBC) [Ratio]13.3 % 11.0-15.0[facility] HospitalGlomerular filtration rate (GFR) estimation in non- AmericanOrdered By: Eloise Zambrano on 10-22-2901GFB/1.73 sq M.predicted among non-blacks MDRD (S/P/Bld) [Vol rate/Area]36 mL/min/{1.73_m2}Low>=60 mL/min/1.73m 2FWexner Medical CenterGlucose mean value [Mass/volume] in Blood Estimated from glycated hemoglobinOrdered By: Eloise Zambrano on 46-59-5188Vlugpbg glucose Estimated from glycated hemoglobin (Bld) [Mass/Vol]137 mg/dLOhiohealth Riverside Methodist HospitalHematocrit Auto (Bld) [Volume fraction]Ordered By: Eloise Zambrano on 55-10-6406Srxiwreoog (Bld) [Volume fraction]38.7 %36.0-48.0[facility] HospitalHemoglobin A1c percentageOrdered By: Eloise Zambrano on 08-38-3628RyX5h (Bld) [Mass fraction]6.4 % High4.5-6.2FWexner Medical CenterComment on above:ADA RECOMMENDED LIMIT 4.0 - 6.0ADA THERAPEUTIC TARGET < 7.0ACTION SUGGESTED> 7.0Hemoglobin [Mass/volume] in BloodOrdered By: Eloise Zambrano on 17-41-3047Orgmksxdyz (Bld) [Mass/Vol]12.6 g/dL12.0-16.0[facility] HospitalINR in Platelet poor plasma by Coagulation assayOrdered By: Eloise Zambrano on 12-68-5306JDZ Coag (PPP) [Relative time]1.07 {INR}[facility] HospitalComment on above:DESIRED INR:2.0-3.0 CONDITIONS NOT LISTED BELOW2.5-3.5 FOR PROSTHETIC HEART VALVE REPLACEMENT2.5-3.5 RECURRENT THROMBOSISLaboratory - Chemistry and Chemistry - challengeOrdered By: Eloise Zambrano on 44-80-3753Igtbdjw [Mass/Vol]9.0 mg/dL8.5-10.1FWexner Medical CenterChloride [Moles/Vol]105 mmol/L 98-107[facility] HospitalCO2 [Moles/Vol]27.3 mmol/L21.0-32.0 [facility] HospitalCreatinine [Mass/Vol]1.45 mg/dLHigh0.55-1.02 [facility] HospitalGFR/1.73 sq M.predicted MDRD (S/P/Bld) [Vol rate/Area]44 mL/min/{1.73_m2}Low>=60 mL/min/1.73m 2FWexner Medical CenterGlucose [Mass/Vol]83 mg/sT88-445YsngifammOhiohealth Riverside Methodist HospitalPotassium [Moles/Vol]4.5 mmol/L3.5-5.1FSouthview Medical Centerodium [Moles/Vol] 142 mmol/O459-993IewwkxumbOhiohealth Riverside Methodist HospitalUrea nitrogen [Mass/Vol]23.0 mg/dLHigh7.0-18.0[facility] HospitalUrea nitrogen/Creatinine [Mass ratio]15.9 mg/mgOhiohealth Riverside Methodist HospitalLaboratory - Hematology and Cell countsOrdered By: Eloise Zambrano on 00-81-3301Elvxsyui granulocytes/100 WBC (Bld)0.4 %0.0-0.5FWexner Medical CenterLeukocytes [#/volume] corrected for nucleated erythrocytes in Blood by Automated counOrdered By: Eloise Zambrano on 77-69-0889BDL corrected for nucl RBC Auto (Bld) [#/Vol]7.1 10 3/uL4.0-11.0[facility] HospitalLymphocytes Auto (Bld) [#/Vol] Ordered By: Eloise Zambrano on 14-54-0143Gnehywwrtjr (Bld) [#/Vol]2.2 10 3/uL 1.2-3.8[facility] HospitalLymphocytes/100 WBC Auto (Bld)Ordered By: Eloise Zambrano on 73-38-5833Whelabxvgoa/100 WBC (Bld)30.8 %20.5-60.0[facility] HospitalMCH Auto (RBC) [Entitic mass]Ordered By: Eloise Zambrano on 06-17-9108DAE (RBC) [Entitic mass]28.4 pg26.7-34.0[facility] HospitalMCHC Auto (RBC) [Mass/Vol]Ordered By: Eloise Zambrano on 54-98-9749BFHR (RBC) [Mass/Vol]32.6 g/dL29.9-35.2FWexner Medical CenterMCV Auto (RBC) [Entitic vol]Ordered By: Eloise Zambrano on 41-98-4559FIX (RBC) [Entitic vol]87.2 fL81.0-99.0[facility] HospitalMonocytes Auto (Bld) [#/Vol]Ordered By: Seltonyan Kenya on 15-61-4770Etrgaplcz (Bld) [#/Vol]0.6 10 3/uL0.3-0.8[facility] HospitalMonocytes/100 WBC Auto (Bld)Ordered By: Eloise Zambrano on 68-48-4330Tjyurionc/100 WBC (Bld)7.9 %1.7-12.0[facility] Neutrophils Auto (Bld) [#/Vol]Ordered By: Eloise Zambrano on 56-06-0962Dgzossxtiiv (Bld) [#/Vol]4.1 10 3/uL1.4-6.5FWexner Medical CenterNeutrophils/100 WBC Auto (Bld)Ordered By: Eloise Zambrano on 21-23-7584Gatmiznhtep/100 WBC (Bld) 57.1 %43.0-75.0[facility] HospitalNo Panel InformationOrdered By: Eloise Zambrano on 16-71-1391Klalhoajbjp # (Auto)0.2 10 3/uL0.0-0.7FWexner Medical CenterImmature Granulocyte # (Auto)0.03 10 3/uL0.00-0.03 [facility] HospitalPlatelet mean volume Auto (Bld) [Entitic vol] Ordered By: Eloise Zambrano on 53-02-3923Xtzdkwwd mean volume (Bld) [Entitic vol] 10.5 fL9.5-13.5FWexner Medical CenterPlatelets Auto (Bld) [#/Vol] Ordered By: Eloise Zambrano on 29-97-2574Jnobkolut (Bld) [#/Vol]227 10 3/mA688-041 [facility] HospitalProthrombin time (PT)Ordered By: Eloise Zambrano on 60-40-9348IL Coag (PPP) [Time]11.3 s9.0-11.6FWexner Medical Center RBC Auto (Bld) [#/Vol]Ordered By: Eloise Zambrano on 63-66-6876XTP (Bld) [#/Vol] 4.44 10 6/uL4.20-5.40Marymount Hospitalerum or plasma anion gap determinationOrdered By: Eloise Zambrano on 29-99-9697Vnstb gap [Moles/Vol]14.2 mmol/LFWexner Medical CenterMRI KNEE RIGHT WO CONTRASTon 12-01-2024 MRI KNEE RIGHT WO CONTRASTEXAM: MRI KNEE RIGHT WO CONTRAST HISTORY: Osteoarthritis [...] Signed by: Isreal Garcia DO 12/01/24 Final resultNormalMerBeth David HospitalBasophils Auto (Bld) [#/Vol]Ordered By: Robert Villasenor on 98-19-8539Dsukjvprk (Bld) [#/Vol]0.0 10 3/uL0.0-0.1FWexner Medical CenterBasophils/100 WBC Auto (Bld)Ordered By: Robert Villasenor on 60-67-7215Hdqfnzolf/100 WBC (Bld)0.6 %0.2-2.0[facility] Cholesterol in LDL Calc [Mass/Vol]Ordered By: Robert Villasenor on 10-13-2024 Cholesterol in LDL [Mass/Vol]77.0 mg/dLOhiohealth Riverside Methodist HospitalComment on above:<100 mg/dl UAUKSUA703-339 mg/dl NEAR OR ABOVE BHPSOQM047-740 mg/dl BORDERLINE XOPL078-822 mg/dl HIGH>190 mg/dl VERY HIGHCholesterol in VLDL Calc [Mass/Vol]Ordered By: Robert Villasenor on 42-18-9336Lybdbkaegei in VLDL [Mass/Vol] 30.8 mg/dLOhiohealth Riverside Methodist HospitalEosinophils/100 WBC Auto (Bld)Ordered By: Robert Villasenor on 05-69-6586Xsjkskjnuqq/100 WBC (Bld)4.5 %0.9-7.0[facility] HospitalErythrocyte distribution width Auto (RBC) [Ratio]Ordered By: Robert Villasenor on 39-04-2894Wxeqhlzkwpy distribution width (RBC) [Ratio]12.6 %11.0-15.0[facility] HospitalEstimated glomerular filtration rate (GFR) non- AmericanOrdered By: Robert Villasenor on 69-45-6291AZL/1.73 sq M.predicted among non-blacks MDRD (S/P/Bld) [Vol rate/Area]50 mL/min/{1.73_m2} Low>=60 mL/min/1.73m 2FWexner Medical CenterGlobulin Calc (S) [Mass/Vol]Ordered By: Robert Villasenor on 84-11-1040Kmivpklw (S) [Mass/Vol]3.6 g/dL [facility] HospitalHematocrit Auto (Bld) [Volume fraction]Ordered By: Robert Villasenor on 30-87-1712Zlqnuaqvyy (Bld) [Volume fraction]37.7 %36.0-48.0 [facility] HospitalHemoglobin [Mass/volume] in BloodOrdered By: Robert Villasenor on 87-21-8906Nqooueyblw (Bld) [Mass/Vol]12.0 g/dL12.0-16.0 [facility] HospitalLaboratory - Chemistry and Chemistry - challengeOrdered By: Robert Villasenor on 83-98-2351Biiozam [Mass/Vol]3.6 g/dL 3.4-5.0[facility] HospitalALP [Catalytic activity/Vol]91 U/L46-116 [facility] HospitalALT [Catalytic activity/Vol]29 U/L14-59 [facility] HospitalAST [Catalytic activity/Vol]23 U/L15-37 [facility] HospitalBilirubin [Mass/Vol]0.6 mg/dL0.2-1.0[facility] HospitalCalcium [Mass/Vol]8.9 mg/dL8.5-10.1FWexner Medical CenterChloride [Moles/Vol]103 mmol/Z39-251OjeyjdnarOhiohealth Riverside Methodist HospitalCholesterol [Mass/Vol]161 mg/dL<=200[facility] Cholesterol in HDL [Mass/Vol]54 mg/pO59-24AdbozyddlOhiohealth Riverside Methodist Hospital Comment on above:> or =60 mg/dl - LOW CARDIOVASCULAR RISK<40 mg/dl - HIGH CARDIOVASCULAR RISKCO2 [Moles/Vol]26.8 mmol/L21.0-32.0[facility] HospitalCreatinine [Mass/Vol]1.09 mg/dLHigh0.55-1.02[facility] HospitalGFR/1.73 sq M.predicted MDRD (S/P/Bld) [Vol rate/Area]mL/min/{1.73_m2}>=60 mL/min/1.73m 2FWexner Medical CenterGlucose [Mass/Vol]75 mg/sS75-433 [facility] HospitalPotassium [Moles/Vol]4.3 mmol/L3.5-5.1FWexner Medical CenterProtein [Mass/Vol]7.2 g/dL6.4-8.2FSouthview Medical Centerodium [Moles/Vol]141 mmol/A564-680AhntaplkrOhiohealth Riverside Methodist HospitalTriglyceride [Mass/Vol]154 mg/dLHigh<=150[facility] Urea nitrogen [Mass/Vol]28.0 mg/dLHigh7.0-18.0[facility] Urea nitrogen/Creatinine [Mass ratio]25.7 mg/mgOhiohealth Riverside Methodist Hospital Laboratory - Hematology and Cell countsOrdered By: Robert Villasenor on 10-13-2024 Immature granulocytes/100 WBC (Bld)0.3 %0.0-0.5FWexner Medical Center Leukocytes [#/volume] corrected for nucleated erythrocytes in Blood by Automated counOrdered By: Robert Villasenor on 27-73-8736TJM corrected for nucl RBC Auto (Bld) [#/Vol]6.4 10 3/uL4.0-11.0[facility] HospitalLymphocytes Auto (Bld) [#/Vol]Ordered By: Robert Villasneor on 90-89-4101Nvdlkvacuml (Bld) [#/Vol]2.7 10 3/uL1.2-3.8[facility] HospitalLymphocytes/100 WBC Auto (Bld)Ordered By: Robert Villasenor on 73-82-0513Hrvsurstroe/100 WBC (Bld)42.6 % 20.5-60.0[facility] HospitalMCH Auto (RBC) [Entitic mass]Ordered By: Robert Villasenor on 02-15-0062IGB (RBC) [Entitic mass]26.1 pgLow26.7-34.0 [facility] HospitalMCHC Auto (RBC) [Mass/Vol]Ordered By: Robert Villasenor on 63-49-6000ZXED (RBC) [Mass/Vol]31.8 g/dL29.9-35.2FWexner Medical CenterMCV Auto (RBC) [Entitic vol]Ordered By: Robert Villasenor on 09-57-3491CYN (RBC) [Entitic vol]82.0 fL81.0-99.0[facility] HospitalMicroalbumin [Mass/volume] in UrineOrdered By: Robert Villasenor on 10-13-2024 Albumin DL <= 20 mg/L (U) [Mass/Vol]mg/dL<=30.0[facility] Monocytes Auto (Bld) [#/Vol]Ordered By: Robert Villasenor on 36-38-0436Ohensoqmk (Bld) [#/Vol]0.5 10 3/uL0.3-0.8[facility] HospitalMonocytes/100 WBC Auto (Bld)Ordered By: Robert Villasenor on 74-71-0239Kwmaocrzs/100 WBC (Bld)8.5 %1.7-12.0[facility] HospitalNeutrophils Auto (Bld) [#/Vol]Ordered By: Robert Villasenor on 18-84-3447Tlrhjkqmxdb (Bld) [#/Vol]2.8 10 3/uL1.4-6.5 [facility] HospitalNeutrophils/100 WBC Auto (Bld)Ordered By: Robert Villasenor on 06-83-8876Tpkpjmumksb/100 WBC (Bld)43.5 %43.0-75.0[facility] HospitalNo Panel InformationOrdered By: Robert Villasenor on 50-83-3906Cjzhrlizcrk # (Auto)0.3 10 3/uL0.0-0.7FWexner Medical CenterImmature Granulocyte # (Auto)0.02 10 3/uL0.00-0.03[facility] HospitalUrine Random Lzrxsjzflt08.31 mg/dL20.00-300.00[facility] HospitalPlatelet mean volume Auto (Bld) [Entitic vol]Ordered By: Robert Villasenor on 58-37-2011Uvcoabkf mean volume (Bld) [Entitic vol]9.8 fL9.5-13.5 [facility] HospitalPlatelets Auto (Bld) [#/Vol]Ordered By: Robert Villasenor on 65-07-1789Cmkowwdzv (Bld) [#/Vol]227 10 3/kL263-066JeorfcjcwOhiohealth Riverside Methodist HospitalRBC Auto (Bld) [#/Vol]Ordered By: Robert Villasenor on 07-20-9921HPN (Bld) [#/Vol]4.60 10 6/uL4.20-5.40Marymount Hospitalerum or plasma albumin/globulin mass ratioOrdered By: Robert Villasenor on 16-98-2327Fylbmsf/Globulin [Mass ratio]1.0 {ratio}[facility]mount Hospitalerum or plasma anion gap determinationOrdered By: Robert Villasenor on 13-43-6178Sqlht gap [Moles/Vol]15.5 mmol/LFSouthview Medical Centererum or plasma total cholesterol/high density lipoprotein (HDL) cholesterol mass rat Ordered By: Robert Villasenor on 67-29-7374Xzwjfzpklhw.total/Cholesterol in HDL [Mass ratio]3.0 {ratio}[facility] HospitalComment on above:3.3 - 4.4 LOW RISK4.4 - 7.1 AVERAGE RISK7.1 - 11.0 MODERATE RISK>11.0 HIGH RISK Basophils Auto (Bld) [#/Vol]on 54-32-9661Ufpwskpeo (Bld) [#/Vol]0.0 10 3/uL 0.0-0.1FWexner Medical CenterBasophils/100 WBC Auto (Bld)on 34-40-2088Rzgjrgtek/100 WBC (Bld)0.6 %0.2-2.0[facility] [facility] Cholesterol in LDL Calc [Mass/Vol]on 95-43-8169Jivahauyask in LDL [Mass/Vol]57.0 mg/dLOhiohealth Riverside Methodist HospitalComment on above:<100 mg/dl YAFZQMT628- 129 mg/dl NEAR OR ABOVE JVLXPDM362-937 mg/dl BORDERLINE OZJA547-674 mg/dl H IGH>190 mg/dl VERY HIGHCholesterol in VLDL Calc [Mass/Vol]on 09-21-2024 Cholesterol in VLDL [Mass/Vol]37.6 mg/dLOhiohealth Riverside Methodist Hospital Eosinophils/100 WBC Auto (Bld)on 39-01-7561Giioitqipbx/100 WBC (Bld)14.7 %High 0.9-7.0[facility] HospitalErythrocyte distribution width Auto (RBC) [Ratio]on 27-13-8508Irreottntpm distribution width (RBC) [Ratio]11.9 % 11.0-15.0[facility] HospitalEstimated glomerular filtration rate (GFR) non- Americanon 86-10-7879RFD/1.73 sq M.predicted among non-blacks MDRD (S/P/Bld) [Vol rate/Area]54 mL/min/{1.73_m2}Low>=60 mL/min/1.73m 2FWexner Medical CenterGlobulin Calc (S) [Mass/Vol]on 39-34-2934Bqfabqyq (S) [Mass/Vol]3.7 g/dLOhiohealth Riverside Methodist HospitalHematocrit Auto (Bld) [Volume fraction]on 51-86-4468Zhvmuqtlsj (Bld) [Volume fraction]35.4 %Low36.0-48.0 [facility] HospitalHemoglobin [Mass/volume] in Bloodon 09-21-2024 Hemoglobin (Bld) [Mass/Vol]11.0 g/dLLow12.0-16.0[facility] HospitalLaboratory - Chemistry and Chemistry - challengeon 53-54-7562Edotnxu [Mass/Vol]3.2 g/dLLow3.4-5.0[facility] HospitalALP [Catalytic activity/Vol]89 U/J70-102GgkyjtmqsOhiohealth Riverside Methodist HospitalALT [Catalytic activity/Vol]29 U/G34-64GeohjthavOhiohealth Riverside Methodist HospitalAST [Catalytic activity/Vol]22 U/Y73-99YbgatcocwOhiohealth Riverside Methodist HospitalBilirubin [Mass/Vol]0.4 mg/dL0.2-1.0[facility] HospitalCalcium [Mass/Vol]9.2 mg/dL 8.5-10.1FWexner Medical CenterChloride [Moles/Vol]105 mmol/L98-107 [facility] HospitalCholesterol [Mass/Vol]136 mg/dL<=200[facility] HospitalCholesterol in HDL [Mass/Vol]42 mg/eT70-19FkrwvrpswOhiohealth Riverside Methodist HospitalComment on above:> or =60 mg/dl - LOW CARDIOVASCULAR RISK<40 mg/dl - HIGH CARDIOVASCULAR RISKCO2 [Moles/Vol]28.3 mmol/L21.0-32.0 [facility] HospitalCreatinine [Mass/Vol]1.02 mg/dL0.55-1.02 [facility] HospitalGFR/1.73 sq M.predicted MDRD (S/P/Bld) [Vol rate/Area]mL/min/{1.73_m2}>=60 mL/min/1.73m 2FWexner Medical Center Glucose [Mass/Vol]119 mg/pRTynu81-186KdjshksagOhiohealth Riverside Methodist HospitalPotassium [Moles/Vol]5.3 mmol/LHigh3.5-5.1FWexner Medical CenterProtein [Mass/Vol]6.9 g/dL6.4-8.2FSouthview Medical Centerodium [Moles/Vol]143 mmol/A423-460JmakssgzyOhiohealth Riverside Methodist HospitalTriglyceride [Mass/Vol]188 mg/dL High<=150[facility] HospitalTSH Qn0.633 m[IU]/L0.358-3.740 [facility] HospitalUrea nitrogen [Mass/Vol]31.0 mg/dLHigh7.0-18.0 [facility] HospitalUrea nitrogen/Creatinine [Mass ratio]30.4 mg/mg [facility] HospitalLaboratory - Hematology and Cell countson 90-76-1359Ykeprmav granulocytes/100 WBC (Bld)0.2 %0.0-0.5FWexner Medical CenterLeukocytes [#/volume] corrected for nucleated erythrocytes in Blood by Automated counon 25-57-6664AJQ corrected for nucl RBC Auto (Bld) [#/Vol]5.3 10 3/uL4.0-11.0[facility] HospitalLymphocytes Auto (Bld) [#/Vol]on 28-79-8027Pmedzxvolfg (Bld) [#/Vol]2.1 10 3/uL1.2-3.8[facility] HospitalLymphocytes/100 WBC Auto (Bld)on 09-21-2024 Lymphocytes/100 WBC (Bld)39.2 %20.5-60.0[facility] HospitalH Auto (RBC) [Entitic mass]on 42-57-6806SJB (RBC) [Entitic mass]26.1 pgLow 26.7-34.0[facility] HospitalMCHC Auto (RBC) [Mass/Vol]on 10-37-1468SHHQ (RBC) [Mass/Vol]31.1 g/dL29.9-35.2FWexner Medical CenterMCV Auto (RBC) [Entitic vol]on 32-58-2900GXM (RBC) [Entitic vol]83.9 fL 81.0-99.0[facility] HospitalMonocytes Auto (Bld) [#/Vol]on 58-10-9629Awmimcgou (Bld) [#/Vol]0.4 10 3/uL0.3-0.8[facility] HospitalMonocytes/100 WBC Auto (Bld)on 36-68-9570Bflpsmvca/100 WBC (Bld)8.4 % 1.7-12.0[facility] HospitalNeutrophils Auto (Bld) [#/Vol]on 16-93-2266Fvxicruhifl (Bld) [#/Vol]1.9 10 3/uL1.4-6.5FWexner Medical CenterNeutrophils/100 WBC Auto (Bld)on 02-92-2547Mbrfaythvug/100 WBC (Bld)36.9 % Low43.0-75.0[facility] HospitalNo Panel Informationon 09-21-2024 Eosinophils # (Auto)0.8 10 3/uLHigh0.0-0.7FWexner Medical Center Immature Granulocyte # (Auto)0.01 10 3/uL0.00-0.03[facility] HospitalPlatelet mean volume Auto (Bld) [Entitic vol]on 49-42-4200Wqeqjgcr mean volume (Bld) [Entitic vol]9.9 fL9.5-13.5FWexner Medical Center Platelets Auto (Bld) [#/Vol]on 47-17-6236Kfnhvisbk (Bld) [#/Vol]218 10 3/uL 150-450Ohio[facility] HospitalRBC Auto (Bld) [#/Vol]on 48-26-2703ALU (Bld) [#/Vol]4.22 10 6/uL4.20-5.40Marymount Hospitalerum or plasma albumin/globulin mass ratioon 37-02-5713Seemwik/Globulin [Mass ratio]0.9 {ratio}Marymount Hospitalerum or plasma anion gap determination on 84-93-6595Ylvww gap [Moles/Vol]15.0 mmol/LFWexner Medical Center Serum or plasma total cholesterol/high density lipoprotein (HDL) cholesterol mass desiree 99-65-0151Jhcybqprjzi.total/Cholesterol in HDL [Mass ratio]3.2 {ratio}[facility] HospitalComment on above:3.3 - 4.4 LOW RISK4.4 - 7.1 AVERAGE RISK7.1 - 11.0 MODERATE RISK>11.0 HIGH RISKGlucose mean value [Mass/volume] in Blood Estimated from glycated hemoglobinon 24-14-6962Xefbuiv glucose Estimated from glycated hemoglobin (Bld) [Mass/Vol]146 mg/dLOhiohealth Riverside Methodist HospitalHemoglobin A1c percentageon 74-32-9455QbP4m (Bld) [Mass fraction]6.7 %High4.5-6.2FWexner Medical CenterComment on above:ADA RECOMMENDED LIMIT 4.0 - 6.0ADA THERAPEUTIC TARGET < 7.0ACTION SUGGESTED> 7.0 Microalbumin [Mass/volume] in Urineon 42-78-8401Autczpq DL <= 20 mg/L (U) [Mass/Vol]3.2 mg/dL<=30.0[facility] HospitalNo Panel Informationon 86-12-0279Prfam Random Yevkarqowo308.08 mg/dL20.00-300.00[facility] HospitalUrine microalbumin/creatinine mass ratioon 09-14-2024 Albumin/Creatinine DL <= 20 mg/L (U) [Mass ratio]12.3 mg/g0.0-29.9[facility] HospitalComment on above:NO MICROALBUMINURIA 0-29 MG/GCLINICAL MICROALBUMINURIA 30-300 MG/GMACROALBUMINURIA >300 MG/GBasophils Auto (Bld) [#/Vol]on 38-92-5755Lcmbgkjdc (Bld) [#/Vol]Automated basophil count0.0-0.1 [facility] HospitalBasophils/100 WBC Auto (Bld)on 07-18-2024 Basophils/100 WBC (Bld)Automated basophil %0.2-2.0[facility] HospitalEosinophils/100 WBC Auto (Bld)on 00-01-6904Njjpxiolwye/100 WBC (Bld) Automated eosinophil %0.9-7.0[facility] HospitalErythrocyte distribution width Auto (RBC) [Ratio]on 27-01-2006Kvjrkxvbljj distribution width (RBC) [Ratio]Erythrocyte distribution width [Ratio] by Automated count11.0-15.0 [facility] HospitalHematocrit Auto (Bld) [Volume fraction]on 18-38-1446Gkmqatumut (Bld) [Volume fraction]Hematocrit [Volume Fraction] of Blood by Automated onmksKam98.0-48.0[facility] HospitalHemoglobin [Mass/volume] in Bloodon 53-15-6449Gqxdlzhgwt (Bld) [Mass/Vol]Hemoglobin [Mass/volume] in BgbamYsx79.0-16.0[facility] HospitalLaboratory - Hematology and Cell countson 67-79-7819Macdrman granulocytes/100 WBC (Bld)0.6 % High0.0-0.5FWexner Medical CenterLeukocytes [#/volume] corrected for nucleated erythrocytes in Blood by Automated counon 59-64-5068RYB corrected for nucl RBC Auto (Bld) [#/Vol]Leukocytes [#/volume] corrected for nucleated erythrocytes in Blood by Automated coun4.0-11.0[facility] Lymphocytes Auto (Bld) [#/Vol]on 68-33-2681Ejqeemvcqhv (Bld) [#/Vol]Lymphocytes [#/volume] in Blood by Automated count1.2-3.8[facility] Lymphocytes/100 WBC Auto (Bld)on 70-29-1375Wfzekpngkoe/100 WBC (Bld) Lymphocytes/100 leukocytes in Blood by Automated count20.5-60.0[facility] HospitalH Auto (RBC) [Entitic mass]on 44-84-8753QLK (RBC) [Entitic mass]MCH [Entitic mass] by Automated count26.7-34.0[facility] HospitalMCHC Auto (RBC) [Mass/Vol]on 75-81-3081BCKI (RBC) [Mass/Vol]MCHC [Mass/volume] by Automated count29.9-35.2FWexner Medical CenterMCV Auto (RBC) [Entitic vol]on 40-43-6659BDW (RBC) [Entitic vol]MCV [Entitic volume] by Automated count81.0-99.0[facility] HospitalMonocytes Auto (Bld) [#/Vol]on 38-31-3177Crzwosadn (Bld) [#/Vol]Automated blood monocyte count0.3-0.8 [facility] HospitalMonocytes/100 WBC Auto (Bld)on 07-18-2024 Monocytes/100 WBC (Bld)Automated monocyte %1.7-12.0[facility] HospitalNeutrophils Auto (Bld) [#/Vol]on 41-31-8711Ghwalrvyifg (Bld) [#/Vol] Neutrophils [#/volume] in Blood by Automated count1.4-6.5FWexner Medical CenterNeutrophils/100 WBC Auto (Bld)on 49-95-5696Zuwczdrvjbp/100 WBC (Bld)Automated neutrophil %43.0-75.0[facility] HospitalNo Panel Informationon 64-83-8575Mxzhnfbjmpm # (Auto)0.3 10 3/uL0.0-0.7FWexner Medical CenterImmature Granulocyte # (Auto)0.03 10 3/uL0.00-0.03[facility] HospitalPlatelet mean volume Auto (Bld) [Entitic vol]on 74-10-9283Gfykwszz mean volume (Bld) [Entitic vol]Platelet mean volume [Entitic volume] in Blood by Automated countLow9.5-13.5FWexner Medical Center Platelets Auto (Bld) [#/Vol]on 98-96-2127Evulwvcfv (Bld) [#/Vol]Platelets [#/volume] in Blood by Automated vxwle810-568JenuhezxdOhiohealth Riverside Methodist Hospital RBC Auto (Bld) [#/Vol]on 14-61-9321MYP (Bld) [#/Vol]Erythrocytes [#/volume] in Blood by Automated countLow4.20-5.40[facility] HospitalBasophils Auto (Bld) [#/Vol]on 39-67-8362Fpqaoicyn (Bld) [#/Vol]Automated basophil count 0.0-0.1FWexner Medical CenterBasophils/100 WBC Auto (Bld)on 10-60-3375Bojatahlr/100 WBC (Bld)Automated basophil %0.2-2.0[facility] HospitalEosinophils/100 WBC Auto (Bld)on 04-65-1803Holhnsvhwai/100 WBC (Bld)Automated eosinophil %0.9-7.0[facility] HospitalErythrocyte distribution width Auto (RBC) [Ratio]on 81-79-9601Qvtqobrdeow distribution width (RBC) [Ratio]Erythrocyte distribution width [Ratio] by Automated count11.0-15.0 [facility] HospitalEstimated glomerular filtration rate (GFR) non- Americanon 12-27-6331LBB/1.73 sq M.predicted among non-blacks MDRD (S/P/Bld) [Vol rate/Area]Estimated glomerular filtration rate (GFR) non- AmericanLow>=60 mL/min/1.73m 2FWexner Medical CenterHematocrit Auto (Bld) [Volume fraction]on 55-15-0432Wvhpigxzkr (Bld) [Volume fraction]Hematocrit [Volume Fraction] of Blood by Automated uawbmSff06.0-48.0[facility] HospitalHemoglobin [Mass/volume] in Bloodon 85-36-0651Lubklfvjrv (Bld) [Mass/Vol]Hemoglobin [Mass/volume] in HjvvcQce55.0-16.0[facility] HospitalLaboratory - Chemistry and Chemistry - challengeon 07-12-2024 Calcium [Mass/Vol]8.6 mg/dL8.5-10.1FWexner Medical CenterChloride [Moles/Vol]102 mmol/D54-821UetblpvbtOhiohealth Riverside Methodist HospitalCO2 [Moles/Vol]24.7 mmol/L21.0-32.0[facility] HospitalCreatinine [Mass/Vol]1.94 mg/dL High0.55-1.02[facility] HospitalGFR/1.73 sq M.predicted MDRD (S/P/Bld) [Vol rate/Area]31 mL/min/{1.73_m2}Low>=60 mL/min/1.73m 2FWexner Medical CenterGlucose [Mass/Vol]203 mg/qXZrzg45-545HvmljzfasOhiohealth Riverside Methodist HospitalPotassium [Moles/Vol]4.6 mmol/L3.5-5.1FSouthview Medical Centerodium [Moles/Vol]137 mmol/M554-655SgqssgeeaOhiohealth Riverside Methodist HospitalUrea nitrogen [Mass/Vol]24.0 mg/dLHigh7.0-18.0[facility] HospitalUrea nitrogen/Creatinine [Mass ratio]12.4 mg/mgOhiohealth Riverside Methodist Hospital Laboratory - Hematology and Cell countson 71-31-6212Zctpppby granulocytes/100 WBC (Bld)1.8 %High0.0-0.5FWexner Medical CenterLeukocytes [#/volume] corrected for nucleated erythrocytes in Blood by Automated counon 09-46-4931SCH corrected for nucl RBC Auto (Bld) [#/Vol]Leukocytes [#/volume] corrected for nucleated erythrocytes in Blood by Automated coun4.0-11.0[facility] HospitalLymphocytes Auto (Bld) [#/Vol]on 95-83-1613Hwrllxjcbjd (Bld) [#/Vol]Lymphocytes [#/volume] in Blood by Automated count1.2-3.8[facility] HospitalLymphocytes/100 WBC Auto (Bld)on 07-12-2024 Lymphocytes/100 WBC (Bld)Lymphocytes/100 leukocytes in Blood by Automated count 20.5-60.0[facility] HospitalMCH Auto (RBC) [Entitic mass]on 28-47-6218YQF (RBC) [Entitic mass]MCH [Entitic mass] by Automated count26.7-34.0 [facility] HospitalMCHC Auto (RBC) [Mass/Vol]on 73-40-8608VNOV (RBC) [Mass/Vol]MCHC [Mass/volume] by Automated count29.9-35.2FWexner Medical CenterMCV Auto (RBC) [Entitic vol]on 64-16-0856KBI (RBC) [Entitic vol] MCV [Entitic volume] by Automated count81.0-99.0[facility] HospitalMonocytes Auto (Bld) [#/Vol]on 56-42-0144Emcyktsii (Bld) [#/Vol]Automated blood monocyte count0.3-0.8[facility] HospitalMonocytes/100 WBC Auto (Bld)on 32-34-7175Xjqefgwpm/100 WBC (Bld)Automated monocyte %1.7-12.0 [facility] HospitalNeutrophils Auto (Bld) [#/Vol]on 07-12-2024 Neutrophils (Bld) [#/Vol]Neutrophils [#/volume] in Blood by Automated count 1.4-6.5FWexner Medical CenterNeutrophils/100 WBC Auto (Bld)on 11-37-6307Xxqjualwukk/100 WBC (Bld)Automated neutrophil %43.0-75.0[facility] HospitalNo Panel Informationon 21-76-5695Wnxogusxhbp # (Auto)0.2 10 3/uL0.0-0.7FWexner Medical CenterImmature Granulocyte # (Auto)0.13 10 3/uLHigh0.00-0.03[facility] HospitalPlatelet mean volume Auto (Bld) [Entitic vol]on 83-19-4122Rzlbanqc mean volume (Bld) [Entitic vol]Platelet mean volume [Entitic volume] in Blood by Automated count9.5-13.5FWexner Medical CenterPlatelets Auto (Bld) [#/Vol]on 57-83-6973Cumbdrsnp (Bld) [#/Vol]Platelets [#/volume] in Blood by Automated -620SwuwxcqxlOhiohealth Riverside Methodist HospitalRBC Auto (Bld) [#/Vol]on 33-20-0843VGZ (Bld) [#/Vol]Erythrocytes [#/volume] in Blood by Automated countLow4.20-5.40Marymount Hospitalerum or plasma anion gap determinationon 35-76-9665Wcoio gap [Moles/Vol] Serum or plasma anion gap determinationOhiohealth Riverside Methodist HospitalANION GAPon 49-94-6899Susio gap [Moles/Vol]10.0 mmol/LNormal8.0-16.0[facility] HospitalComment on above:Result Comment: ANION GAP = Sodium -(Chloride + CO2)Performed By: #### POCGL #### [facility] [address] [place] [address] 504[address]Jtbyn Gapon 30-30-8341Njvux gap [Moles/Vol]10 mmol/L8.0 - 16.0 meq/LBon [facility] HospitalComment on above:ANION GAP = Sodium -(Chloride + CO2) Performed at [facility] [address] [place] [address] BASIC METABOL PANELon 15-46-4621Huuntjx [Mass/Vol]8.9 mg/dLNormal8.8-10.2SMedical Arts HospitalComment on above:Performed By: #### POCGL #### [facility] [address] [place] [address] 38902BV5 [Moles/Vol]22 mmol/LPwgbmb31-93AuslfHouston Methodist Hospital Comment on above:Performed By: #### POCGL #### [facility] [address] [place] [address] 76152Hranqvjgnq [Mass/Vol]1.0 mg/dLHigh0.5-0.9[facility] HospitalComment on above:Performed By: #### POCGL #### [facility] [address] [place] [address] 52040Xpplkfh [Mass/Vol]166 mg/yZJnol48-785XkegnHouston Methodist Hospital Comment on above:Performed By: #### POCGL #### [facility] [address] [place] [address] 27633Ksvu nitrogen [Mass/Vol]16 mg/dLNormal8-23Houston Methodist HospitalComment on above:Performed By: #### POCGL #### [facility] [address] [place] [address] 62573Wwhocjwo [Moles/Vol]103 mmol/ASptevv47-951YxhepHouston Methodist HospitalComment on above:Performed By: #### POCGL #### [address] [address]Gsvhpqhab [Moles/Vol]4.7 mmol/LNormal3.5-5.2SMedical Arts HospitalComment on above:Result Comment: Low level specimen hemolysis is present as indicated by the interference index on the Yamilet analyzer. ??The reported K+ level may be falsely increased. If clinically warranted, recollection of the specimen is suggested.Performed By: #### POCGL #### [address] [address]Wdiclb [Moles/Vol]135 mmol/XAtxnyc413-962TrmcyHouston Methodist HospitalComment on above:Performed By: #### POCGL #### [address] [address]Fxyqw metabolic 2000 panelon 56-67-4576Ekricqs [Mass/Vol]8.9 mg/dL 8.8 - 10.2 mg/dLBon SecEnfora Select [facility] Hospital [facility] NorthBuyerMLS [facility] CenterComment on above:Performed at [facility] [address] [address]Dgjuirdt [Moles/Vol]103 mmol/L98 - 111 meq/LBon Secnemours foundation Cohealo HealthCO2 [Moles/Vol]22 mmol/L22 - 29 meq/LBon SecSt. Rita's HospitalCreatinine [Mass/Vol]1.0 mg/dLHigh0.5 - 0.9 mg/dLBon SecSt. Clare Hospitaly HealthGlucose [Mass/Vol]166 mg/bEMugf91 - 109 mg/dLBon SecEleutian Technologyy HealthInterpretation and review of laboratory resultsAbnormalBon SecSt. Clare Hospitaly HealthPotassium [Moles/Vol]4.7 mmol/L3.5 - 5.2 meq/LBon SecEnfora [facility] Hospital [facility] NorthBuyerMLS Health Comment on above:Low level specimen hemolysis is present as indicated by the interference index on the Yamilet analyzer. The reported K+ level may be falsely increased. If clinically warranted, recollection of the specimen is suggested. Sodium [Moles/Vol]135 mmol/L135 - 145 meq/LBon [facility] HospitalUrea nitrogen [Mass/Vol]16 mg/dL8 - 23 mg/dLBon [facility] HospitalGFR, ESTIMATEDon 42-80-0894JET/1.73 sq M.predicted MDRD (S/P/Bld) [Vol rate/Area]62 mL/min/{1.73_m2}Normal>60Bon [facility] on above:Pediatric calculator link https://www.kidney.org/professionals/kdoqi/gfr_calculatorped Effective Jan 25, 2022 [...] that affects renal tubular secretion. Performed at [facility] [place] [address] Result Comment: Pediatric calculator link https://www.kidney.org/professionals/kdoqi/gfr_calculatorped Effective Jan [...] or following therapy that affects renal tubular secretion.Performed By: #### POCGL #### [employer] [address] [place] [address] 00449SUUJZKW POCon 16-21-1114Ouhbziy [Mass/Vol]177 mg/cTRigp19-548Jkk [facility] on above:Performed at [employer] [address] [address]Sovbqoivx By: #### POCGL #### [employer] [address] [place] [address] 21521Pamasdf Auto test strip (Bld) [Mass/Vol]on 07-11-2024 Interpretation and review of laboratory resultsAbnormWarren Memorial Hospital Bon [facility] HospitalHGB,HCTon 81-71-5109Wkqxlhpros (Bld) [Volume fraction] 33.4 %Low37.0-47.0Bon [facility] Health SystemComforest health medical center on above:Performed at [facility] [address] [place] [address] 19093Nrqcyicfb By: #### POCGL #### [facility] [address] [place] [address] 95661Tmohrukcvw (Bld) [Mass/Vol]10.8 g/dLLow12.0-16.0Bon [facility] HospitalComment on above:Performed By: #### POCGL #### [address] [address]Zdlpjmlnqr and Hematocrit panel (Bld)on 99-28-9442Fzvjqosmutodxo and review of laboratory resultsAbnormBon Secours Mary Immaculate HospitalNo Panel Informationon 15-35-5894Kre [facility] HospitalANION GAPon 33-64-1845Ajzee gap [Moles/Vol]8.0 mmol/LNormal8.0-16.0Houston Methodist HospitalComment on above:Result Comment: ANION GAP = Sodium -(Chloride + CO2) Performed By: #### POCGL #### [facility] [address] [address]Xyzci Gapon 37-50-2120Jhzhy gap [Moles/Vol]8 mmol/L8.0 - 16.0 meq/LBon [facility] HospitalComforest health medical center on above:ANION GAP = Sodium -(Chloride + CO2) Performed at [facility] [address] [place] [address] BASIC METABOL PANELon 29-49-7518Qqfoltq [Mass/Vol]8.8 mg/dLNormal8.8-10.2SMedical Arts HospitalComment on above:Performed By: #### POCGL #### [facility] [address] [address]GA9 [Moles/Vol]26 mmol/MMooipv75-81FwlhpHouston Methodist Hospital Comment on above:Performed By: #### POCGL #### [facility] [address] [place] [address] 32[address]Rlkxqdtdmq [Mass/Vol]1.1 mg/dLHigh0.5-0.9Houston Methodist HospitalComment on above:Performed By: #### POCGL #### [facility] [address] [place] [address] 219[address]Afjlwpi [Mass/Vol]198 mg/kHUxtp53-653UpkuhHouston Methodist Hospital Comment on above:Performed By: #### POCGL #### [facility] [address] [place] [address] 69582Zfhb nitrogen [Mass/Vol]24 mg/dLHigh8-23Houston Methodist HospitalComment on above:Performed By: #### POCGL #### [address] [address]Wbltymsz [Moles/Vol]101 mmol/HXlqhkh58-310KyxdgHouston Methodist HospitalComment on above:Performed By: #### POCGL #### [address] [address]Gdbblqgib [Moles/Vol]4.6 mmol/LNormal3.5-5.2SMedical Arts HospitalComment on above:Performed By: #### POCGL #### [address] [address]Kxohlg [Moles/Vol]135 mmol/AJdicav376-463QriwzHouston Methodist HospitalComment on above:Performed By: #### POCGL #### [address] [address]Bynmp metabolic 2000 panelon 52-46-7036Ioqjaeb [Mass/Vol]8.8 mg/dL 8.8 - 10.2 mg/dLBon [facility] HospitalComment on above:Performed at [facility] [address] [place] [address] 18525Dfccttmr [Moles/Vol]101 mmol/L98 - 111 meq/LBon SecSt. Tammany Parish Hospital HealthCO2 [Moles/Vol]26 mmol/L22 - 29 meq/LBon SecSt. Rita's HospitalCreatinine [Mass/Vol]1.1 mg/dLHigh0.5 - 0.9 mg/dLBon Secours Mercy HealthGlucose [Mass/Vol]198 mg/kYXood26 - 109 mg/dLBon Secours Mercy HealthPotassium [Moles/Vol]4.6 mmol/L3.5 - 5.2 meq/LBon [facility] Sodium [Moles/Vol]135 mmol/L135 - 145 meq/LBon Secours Mercy HealthUrea nitrogen [Mass/Vol]24 mg/dLHigh8 - 23 mg/dLBon Secours [facility] Northy HealthGFR, ESTIMATEDon 23-13-0584IGP/1.73 sq M.predicted MDRD (S/P/Bld) [Vol rate/Area]56 mL/min/{1.73_m2}Abnormal>60Bon SecSt. Tammany Parish Hospital HealthComment on above:Pediatric calculator link https://www.kidney.org/professionals/kdoqi/gfr_calculatorped Effective Jan 25, 2022 [...] that affects renal tubular secretion. Performed at [facility] [place] [address] Result Comment: Pediatric calculator link https://www.kidney.org/professionals/kdoqi/gfr_calculatorped Effective Jan [...] or following therapy that affects renal tubular secretion.Performed By: #### POCGL #### [employer] [address] [place] [address] 72630XONLRDN POCon 64-05-1994Xmdwxyv [Mass/Vol]267 mg/aUPolt95-053Qun SecSt. Tammany Parish Hospital HealthComment on above:Performed at [employer] [address] [address]Ttveafrkh By: #### POCGL #### [employer] [address] [place] [address] 62715Xomnsfw [Mass/Vol]154 mg/zFAxzk32-820WryBon Secours Health System Comment on above:Performed at [facility] [address] [place] [address] 10060Tvsrqosoz By: #### POCGL #### [facility] [address] [place] [address] 59601Tvfbswd [Mass/Vol]302 mg/jXOuxu76-004RfdBon Secours Health System Comment on above:Performed at [facility] [address] [place] [address] 48845Qowklbeol By: #### POCGL #### [facility] Laboratories [address] [place] [address] 63582Konpadl [Mass/Vol]205 mg/nHOxpf19-501BeyBon Secours Health System Comment on above:Performed at [facility] [address] [place] [address] 88817Jcivceezu By: #### POCGL #### [address] [address]Tziysld Auto test strip (Bld) [Mass/Vol]on 07-10-2024 Interpretation and review of laboratory resultsAbnormCarilion Franklin Memorial HospitalInterpretation and review of laboratory resultsAbnormal Mary Washington HospitalInterpretation and review of laboratory resultsAbnormBon Secours [facility] Interpretation and review of laboratory resultsAbnoMid Dakota Medical CenterHGB,HCTon 06-15-3997Neghaubbhy (Bld) [Volume fraction] 32.2 %Low37.0-47.0Bon Secours Health SystemComment on above:Performed at [facility] [address] [place] [address] 41319Btnugjagd By: #### POCGL #### [facility] [address] [address]Vynzonkriy (Bld) [Mass/Vol]10.0 g/dLLow12.0-16.0Houston Methodist HospitalComment on above:Performed By: #### POCGL #### [facility] [address] [place] [address] 35601Kizxpyegeh and Hematocrit panel (Bld)on 48-34-9228Jjkmglrcvd (Bld) [Mass/Vol]10 g/dLLowBon Secours Health SystemInterpretation and review of laboratory resultsAbnormalMary Washington HospitalNo Panel Informationon 32-11-8859Pekodihflbwtrj and review of laboratory results AbnormalBon [facility] Healthcare CenterANION GAPon 07-09-2024 Anion gap [Moles/Vol]10.0 mmol/LNormal8.0-16.0Houston Methodist HospitalComment on above:Result Comment: ANION GAP = Sodium -(Chloride + CO2)Performed By: #### POCGL #### [facility] [address] [place] [address] 34420Mmclk Gapon 56-80-2717Ohjzp gap [Moles/Vol]10 mmol/L8.0 - 16.0 meq/LBon [facility] Jewish HospitalComment on above:ANION GAP = Sodium -(Chloride + CO2) Performed at [facility] [address] [place] [address]76 BASIC METABOL PANELon 68-73-9848Qwcdwhi [Mass/Vol]8.3 mg/dLLow8.8-10.2SMedical Arts HospitalComment on above:Performed By: #### POCGL #### [facility] [address] [place] [address] 19003CM4 [Moles/Vol]23 mmol/IVjjgog23-49UaxzsHouston Methodist Hospital Comment on above:Performed By: #### POCGL #### [facility] [address] [place] [address] 65991Qyzpdolfss [Mass/Vol]1.1 mg/dLHigh0.5-0.9Houston Methodist HospitalComment on above:Performed By: #### POCGL #### [facility] [address] [place] [address] 29993Nwywwyi [Mass/Vol]197 mg/cAMtqo72-369ZwqhiHouston Methodist Hospital Comment on above:Performed By: #### POCGL #### [facility] [address] [place] [address] 63984Akqm nitrogen [Mass/Vol]21 mg/dLNormal8-23Houston Methodist HospitalComment on above:Performed By: #### POCGL #### [facility] [address] [place], [place] [address]Hvcdacnq [Moles/Vol]103 mmol/MXwcxzy61-712YqkmxHouston Methodist HospitalComment on above:Performed By: #### POCGL #### [facility] [address] [place] [address] 67560Ojhtqpkns [Moles/Vol]5.8 mmol/LHigh3.5-5.2Saint [facility]idoka Memorial HospitalComment on above:Performed By: #### POCGL #### [facility] [address] [place] [address] 88967Koiksp [Moles/Vol]136 mmol/UPqtkyp709-055ZryzfHouston Methodist HospitalComment on above:Performed By: #### POCGL #### [facility] [address] [place] [address] 53420Vcyoa metabolic 2000 panelon 43-24-8686Lgkyypo [Mass/Vol]8.3 mg/dL Low8.8 - 10.2 mg/dLBon [facility] HospitalComment on above:Performed at [facility] [address] [place] [address] 37667Jkerplpg [Moles/Vol]103 mmol/L 98 - 111 meq/LBon [facility] HospitalCO2 [Moles/Vol]23 mmol/L22 - 29 meq/LBon [facility] HospitalCreatinine [Mass/Vol]1.1 mg/dLHigh0.5 - 0.9 mg/dLBon [facility] HospitalGlucose [Mass/Vol]197 mg/eCMasc36 - 109 mg/dLBon [facility] HospitalPotassium [Moles/Vol]5.8 mmol/LHigh3.5 - 5.2 meq/LBon [facility] Sodium [Moles/Vol]136 mmol/L135 - 145 meq/LBon [facility] HospitalUrea nitrogen [Mass/Vol]21 mg/dL8 - 23 mg/dLBon [facility] HospitalGFR, ESTIMATEDon 63-26-3768KCV/1.73 sq M.predicted MDRD (S/P/Bld) [Vol rate/Area]56 mL/min/{1.73_m2}Abnormal>60Bon [facility] HospitalComforest health medical center on above:Pediatric calculator link https://www.kidney.org/professionals/kdoqi/gfr_calculatorped Effective Jan 25, 2022 [...] affects renal tubular secretion. Performed at [facility] [place] [address] Result Comment: Pediatric calculator link https://www.kidney.org/professionals/kdoqi/gfr_calculatorped Effective Jan [...] or following therapy that affects renal tubular secretion.Performed By: #### POCGL #### [facility] [employer] [facility] [employer] [address] [place] [address] 76698AGTMZEJ [facility] 86-77-1014Otamalt [Mass/Vol]211 mg/aWLjmy55-671Abg [facility] HospitalComment on above:Performed at [facility] [employer] [address] [place] [address] 15613Glcfahohj By: #### POCGL #### [facility] [facility] [address] [place] [address] 86721Xeajgqr [Mass/Vol]212 mg/mMFraa68-533Xxr [facility] Comment on above:Performed at [facility] [employer] [address] [place] [address] 80377Obngjgucb By: #### POCGL #### [facility] [employer] [facility] [address] [place] [address] 41567Tetolwd [Mass/Vol]169 mg/vEMhvb95-661Pyi [facility] Comment on above:Performed at [facility] [employer] [address] [place] [address] 13892Cpqdlgucx By: #### POCGL #### [facility] [employer] [facility] [employer] [address] [place] [address] 94727Eqxmcvm [Mass/Vol]229 mg/vFBgep92-026CgdBon Secours Health System Comment on above:Performed at [facility] [address] [place] [address] 93006Imxlwbmhy By: #### POCGL #### [facility] [address] [place] [address] 20153Ipnyydx [Mass/Vol]203 mg/fFAaka14-435XurBon Secours Health System Comment on above:Performed at [facility] [address] [place] [address] 16219Hrbjxjorm By: #### POCGL #### [facility] [address] [place] [address] 96289MFR,HCTon 40-46-4350Rmzlxdvhbu (Bld) [Volume fraction]36.7 %Low 37.0-47.0Bon Secours Health SystemComment on above:Performed at [facility] [address] [place] [address] 42761Aqrndqqea By: #### POCGL #### [facility] [address] [address]Ynnpdcqosk (Bld) [Mass/Vol]11.9 g/dLLow12.0-16.0Bon Secours Health SystemComment on above:Performed By: #### POCGL #### [facility] [address] [address]Oe Panel Informationon 15-67-1103Mdzozsfckqejox and review of laboratory resultsAbnormalMary Washington Hospital POTASSIUMon 14-26-2365Wiegqtaks [Moles/Vol]4.7 mmol/LNormal3.5-5.2Saint Minidoka Memorial HospitalComment on above:Performed By: #### KP #### [facility] [address] [address]Goqslptemcy 89-97-2651Djtksvttv [Moles/Vol]4.7 mmol/L3.5 - 5.2 meq/LBon [facility] HospitalComment on above:Performed at [facility] [address] [place] [address] 24897NVZFJTB POCon 21-51-1734Vgcjood [Mass/Vol]266 mg/jVFxhg81-591YxiBon Secours Health SystemComment on above:Performed at [facility] [address] [place] [address] 87036Qahvsavxs By: #### POCGL #### [facility] [address] [place] [address] 80179Rwrttxw [Mass/Vol]120 mg/cBDozs75-906Gaq [facility] Comment on above:Performed at [facility] [address] [place] [address] 81310Ddclclbfg By: #### POCGL #### [facility] [address] [place] [address] 50660Egxkqdc [Mass/Vol]105 mg/qNUdhztp62-825Gya [facility] Comment on above:Performed at [facility] [address] [place] [address] 59474Ugfmljalc By: #### POCGL #### [facility] [address] [place] [address] 16790Ccuomrb [Mass/Vol]136 mg/hQSwim69-652Pjf [facility] Comment on above:Performed at [facility] [address] [place] [address] 39736Vuyhaigtt By: #### POCGL #### [facility] [address] [place] [address] 01604Ujkatwb Auto test strip (Bld) [Mass/Vol]on 07-08-2024 Interpretation and review of laboratory resultsAbnormalSpotsylvania Regional Medical CenterInterpretation and review of laboratory resultsAbnormal [facility] Interpretation and review of laboratory resultsAbnormCarilion Franklin Memorial HospitalXR LUMBAR SPINE 1 VWon 60-97-5166YR LUMBAR SPINE 1 VW MOBILE LATERAL LUMBAR SPINE: CLINICAL INFORMATION: surgery. [...] Signed by: Boo Headley MD 07/08/24 Final resultNormalSMedical Arts HospitalXR Lumbar spine Single viewon . Evidence of posterior fusion at L4-L5. Please refer to operative report for further details. This report has been created using voice recognition software. It may contain minor errors which are inherent in voice recognition technology. Electronically signed by Sivakumar Barnes MD - 07/08/2024 PROCEDURE: XR LUMBAR SPINE [...] recognition technology. Electronically signed by Dr. Jerrod Parker [facility] HospitalRadiology Study observation (narrative)[facility] Secours Health SystemIntraoperative appearance of the lumbar spine. This report has been created using voice recognition software. It may contain minor errors which are inherent in voice recognition technology. Electronically signed by Dr. Boo QUILES ELMIRA PSYCHIATRIC CENTERKaren LATERAL LUMBAR SPINE: CLINICAL INFORMATION: surgery. L3-L5 decompression. L4-L5- fusion COMPARISON: No prior study. TECHNIQUE: A single lateral mobile view of the lumbar spine was obtained For localization purposes. FINDINGS: 2 spinal needles are present posteriorly directed at the L4 and L5 levels. [facility] Boo Suarez MD - 07/08/2024 MOBILE LATERAL LUMBAR SPINE: [...] recognition technology. Electronically signed by Dr. Boo Rest[employer] [facility] Health SystemRadiology Study observation (narrative)[facility]ours Health SystemXR Lumbar spine Single viewOrdered By: Sivakumar Betts on 90-65-9029Tfm [facility] [employer] Work Phone: XR Lumbar spine Single viewOrdered By: Boo Headley on 65-66-4255Iie Seton Medical CenterWearable Intelligence Work Phone: ANION GAPon 36-25-4870Oxzzc gap [Moles/Vol]14.0 mmol/L Normal8.0-16.0Houston Methodist HospitalComment on above:Result Comment: ANION GAP = Sodium -(Chloride + CO2)Performed By: #### BMP, EGFR1, CBCND, ANION #### [facility] [address] [place] [address] 57327Qipnx Gapon 76-78-4646Upzjg gap [Moles/Vol]14 mmol/L8.0 - 16.0 meq/LBon [facility] HospitalComment on above:ANION GAP = Sodium -(Chloride + CO2) Performed at [facility] [address] [place] [address] 675[address] BASIC METABOL PANELon 10-66-4045NR6 [Moles/Vol]21 mmol/DRtq65-38OnlsvHouston Methodist HospitalComment on above:Performed By: #### BMP, EGFR1, CBCND, ANION #### [facility] [address] [place] [address] 66521Xcvnemrimz [Mass/Vol]1.0 mg/dLHigh0.5-0.9Houston Methodist HospitalComment on above:Performed By: #### BMP, EGFR1, CBCND, ANION #### [facility] [address] [place] [address] 45739Cuehkyf [Mass/Vol]172 mg/iFDysh59-952LqunlHouston Methodist Hospital Comment on above:Performed By: #### BMP, EGFR1, CBCND, ANION #### [facility] [address] [place] [address] 13613Dtfh nitrogen [Mass/Vol]33 mg/dLHigh8-23Houston Methodist HospitalComment on above:Performed By: #### BMP, EGFR1, CBCND, ANION #### [facility] [address] [place], [place] [address]Havxlil [Mass/Vol]9.2 mg/dLNormal8.8-10.2SMedical Arts HospitalComment on above:Performed By: #### BMP, EGFR1, CBCND, ANION #### [facility] [address] [place], [place] [address]Iqtvhpyk [Moles/Vol]103 mmol/OOzdhgx87-814WgnzdHouston Methodist HospitalComment on above:Performed By: #### BMP, EGFR1, CBCND, ANION #### [facility] [address] [place] [address] 81061Sjnavduei [Moles/Vol]4.4 mmol/LNormal3.5-5.2SMedical Arts HospitalComment on above:Result Comment: Low level specimen hemolysis is present as indicated by the interference index on the Yamilet analyzer. ??The reported K+ level may be falsely increased. If clinically warranted, recollection of the specimen is suggested.Performed By: #### BMP, EGFR1, CBCND, ANION #### [facility] [address] [place] [address] 71630Cmrbtu [Moles/Vol]138 mmol/BEkslfj667-407XittyHouston Methodist HospitalComment on above:Performed By: #### BMP, EGFR1, CBCND, ANION #### [facility] [address] [place] [address] 53358Qpjpm metabolic 2000 panelon 87-99-8431Cadoosc [Mass/Vol]9.2 mg/dL 8.8 - 10.2 mg/dLBon [facility] HospitalComment on above:Performed at [facility] [employer] [facility] [address] [place], [place] [address]Shugozbb [Moles/Vol]103 mmol/L98 - 111 meq/LBon SecSt. Tammany Parish Hospital HealthCO2 [Moles/Vol]21 mmol/LLow22 - 29 meq/LBon [facility] HospitalCreatinine [Mass/Vol]1.0 mg/dLHigh0.5 - 0.9 mg/dLBon SecSt. Rita's HospitalGlucose [Mass/Vol]172 mg/lNPovl86 - 109 mg/dLBon Seton Medical Centery HealthInterpretation and review of laboratory resultsAbnormalBon [facility] HospitalPotassium [Moles/Vol]4.4 mmol/L3.5 - 5.2 meq/LBon [facility] Comment on above:Low level specimen hemolysis is present as indicated by the interference index on the Yamilet analyzer. The reported K+ level may be falsely increased. If clinically warranted, recollection of the specimen is suggested. Sodium [Moles/Vol]138 mmol/L135 - 145 meq/LBon [facility] HospitalUrea nitrogen [Mass/Vol]33 mg/dLHigh8 - 23 mg/dLBon [facility] HospitalCBCon 07-07-2024 Erythrocyte distribution width (RBC) [Entitic vol]40.3 fL35.0 - 45.0 fLBon [facility] Jewish HospitalPlatelets (Bld) [#/Vol]236 10*3/uLBon Secours Health System RBC (Bld) [#/Vol]4.73 10*6/uLBon [facility] HospitalWBC (Bld) [#/Vol]8.6 10*3/uLBon [facility] HospitalBon [facility] HospitalCBC NO DIFFERENTIALon 99-86-6021Hwxlzufqfyl distribution width (RBC) [Ratio]12.6 %Tbjnye80.5-14.5Bon Berger Hospitalment on above:Performed By: #### BMP, EGFR1, CBCND, ANION #### [employer] [facility] [address] [place] [address] 64461Qjdpzyhqra (Bld) [Volume fraction]41.6 %Tudgjn46.0-47.0[facility] on above:Performed By: #### BMP, EGFR1, CBCND, ANION #### [employer] [facility] [address] [place], [place] [address]Hejpietxfw (Bld) [Mass/Vol]13.5 g/fNPzcqjx28.0-16.0[facility] on above:Performed By: #### BMP, EGFR1, CBCND, ANION #### [employer] [address] [place], [place] [address]REQ (RBC) [Entitic mass]28.5 otKryqrh42.0-33.0[facility] Mercy HealthComment on above:Performed By: #### BMP, EGFR1, CBCND, ANION #### [facility] [address] [place], [place] [address]MCHC (RBC) [Mass/Vol]32.5 g/nWDtlbwt61.2-35.5Bon [facility] HospitalComment on above:Performed By: #### BMP, EGFR1, CBCND, ANION #### [facility] [address] [place], [place] [address]MCV (RBC) [Entitic vol]87.9 rUJjywsm79.0-99.0Bon [facility] HospitalComment on above:Performed By: #### BMP, EGFR1, CBCND, ANION #### [place], [place] [address]PLATELET236 thou/ey2Tenhno631-738OutthHouston Methodist Hospital Comment on above:Performed By: #### BMP, EGFR1, CBCND, ANION #### [place], [place] [address]Platelet mean volume (Bld) [Entitic vol]9.6 fLNormal9.4-12.4Bon [facility] HospitalComment on above:Performed at [facility] [address] [address]Lwlzwvmud By: #### BMP, EGFR1, CBCND, ANION #### [address] [address]FDC0.73 mill/od5Dvdwlv6.20-5.40SMedical Arts HospitalComment on above:Performed By: #### BMP, EGFR1, CBCND, ANION #### [facility] [address] [address]LBS-AU72.3 pAKmlunw22.0-45.0Houston Methodist HospitalComment on above:Performed By: #### BMP, EGFR1, CBCND, ANION #### [facility] [address] [place] [address] 53183EKA2.6 thou/ad7Phodny9.8-10.8Houston Methodist HospitalComment on above:Performed By: #### BMP, EGFR1, CBCND, ANION #### [facility] [address] [place] [address] 57859VWW, ESTIMATEDon 10-17-3906DUY/1.73 sq M.predicted MDRD (S/P/Bld) [Vol rate/Area]62 mL/min/{1.73_m2}Normal>60Bon [facility] HospitalComment on above:Pediatric calculator link https://www.kidney.org/professionals/kdoqi/gfr_calculatorped Effective Jan 25, 2022 [...] affects renal tubular secretion. Performed at [facility] [address] [address] Result Comment: Pediatric calculator link https://www.kidney.org/professionals/kdoqi/gfr_calculatorped Effective Jan [...] or following therapy that affects renal tubular secretion.Performed By: #### BMP, EGFR1, CBCND, ANION #### [facility] [employer] [facility] [address] [place] [address] 70492BYCOKCA POCon 92-79-4323Qyrfzje [Mass/Vol]271 mg/lBHjun13-481Mjb [facility] HospitalComment on above:Performed at [facility] [employer] Medical [address] [address]Dgscijrmx By: #### POCGL #### [facility] [employer] [address] [address]Exhyteo [Mass/Vol]188 mg/eAAbav54-929Nvi [facility] Comment on above:Performed at [facility] [employer] [facility] Lab [address] [place] [address] 27261Nhyzpugmx By: #### POCGL #### [facility] [address] [place] [address] 82632Zcfovbf [Mass/Vol]174 mg/uHTfzw10-908Ojm [facility] Comment on above:Performed at [facility] [address] [place] [address] 84481Vnkafxmno By: #### POCGL #### [facility] [address] [place] [address] 39573Uqhqyqd [Mass/Vol]76 mg/iQWlddij08-881Nvi [facility] Comment on above:Performed at [facility] [address] [place] [address] 30730Rqlphlvsv By: #### POCGL #### [facility] [address] [place] [address] 35830Lzucrkvuhk Filtration Rate, Estimatedon 83-85-9007Dae Co[facility] Springs East HospitalAERON Lifestyle TechnologyGlucose Auto test strip (Bld) [Mass/Vol]on 88-89-3146Xmklbhlvublcyd and review of laboratory resultsAbnormInova Health SystemThe Other Guys [facility] Grant Medical CenterInterpretation and review of laboratory resultsAbnormInova Health SystemEnfora Providence HospitalInterpretation and review of laboratory resultsAbnormRetreat Doctors' HospitalThe Other Guys [facility] Medical CenterNo Panel Informationon 21-16-9396Cez SecAERON Lifestyle TechnologyXR CHEST (2 VW) on 40-96-8248TY CHEST (2 VW)Chest X-ray: 2 views. Indication: Pulmonary congestion. Comparison: [...] Signed by: Kj Epps MD 07/07/24 Final resultNormHouston Methodist Baytown HospitalXR Chest 2 Viewson 07-07-2024 Impression: No acute cardiopulmonary disease. This document has been electronically signed by: Kj Epps MD on 07/07/2024 02:22 AMWCOH RIS CONSOLIDATEDChest X-ray: 2 views. Indication: Pulmonary congestion. Comparison: None Findings: The lungs are well aerated. No focal consolidation, or pleural effusion. The cardiac silhouette is normal in size. Bony thorax is grossly intact. Bilateral shoulder arthroplasty. External metallic density versus surgical hardware projects on the lower cervical spine. [facility] Kj Hyde MD - 07/07/2024 Chest X-ray: 2 views. [...] MD on 07/07/2024 02:22 AM [facility] Health SystemRadiology Study observation (narrative)[facility] Health SystemXR Chest 2 ViewsOrdered By: Kj Epps on 28-31-6714Ryc [facility] ANION GAPon 07-44-6584Elvyv gap [Moles/Vol]14.0 mmol/LNormal8.0-16.0Houston Methodist HospitalComment on above:Result Comment: ANION GAP = Sodium -(Chloride + CO2)Performed By: #### POCGL #### [employer] [facility] [address] [place] [address] 58635IZHYtm 73-98-7517sNJG Coag (Bld) [Time]29.5 aMzbsrp32.0-38.0Houston Methodist HospitalComment on above:Result Comment: Therapeutic Heparin Reference Range= 60-95 seconds (corresponds to 0.3 to 0.7 u/mL Anti-Xa factor activity)Performed By: #### POCGL #### [facility] [address] [place], [place] [address]Qouod Gapon 11-19-1324Uqtjs gap [Moles/Vol]14 mmol/L8.0 - 16.0 meq/LBon [facility] HospitalComment on above:ANION GAP = Sodium -(Chloride + CO2) Performed at [facility] [address] [place] [address] CBC WITH DIFFERENTIALon 07-83-8421EAI BASOPHILS0.0 thou/hm5Ccrpib9.0-0.1SMedical Arts HospitalComment on above:Performed By: #### POCGL #### [facility] [address] [place] [address] 627[address]UXZ EOSINOPHILS0.0 thou/br4Quftmb7.0-0.4SMedical Arts HospitalComment on above:Performed By: #### POCGL #### [address] [address]CAN IMMATURE GRANS (IG)0.05 thou/uh4Ruvlzu9.00-0.07Houston Methodist HospitalComment on above:Performed By: #### POCGL #### [address] [address]XFE LYMPHOCYTES2.8 thou/nm0Pynfkq2.0-4.8Houston Methodist HospitalComment on above:Performed By: #### POCGL #### [address] [address]PJM MONOCYTES0.8 thou/en5Dhmkno2.4-1.3SMedical Arts Hospital Comment on above:Performed By: #### POCGL #### [address] [address]MZF NEUTROPHILS7.9 thou/fy6Fnvl9.8-7.7[facility] Comment on above:Performed By: #### POCGL #### [address] [address]Fczcnvrnm/100 WBC (Bld)0.2 %NormalBon Secours Health SystemComment on above:Performed By: #### POCGL #### [address] [address]Dvdwfvxxddf/100 WBC (Bld)0.3 %NormalBon Secours Health System Comment on above:Performed By: #### POCGL #### [address] [address]Dlnpxrstdjx distribution width (RBC) [Ratio]12.5 %Sdzdfj83.5-14.5 Bon Secours Health SystemComment on above:Performed By: #### POCGL #### [address] [place] [address]Fkxmhlbtjj (Bld) [Volume fraction]42.6 %Bbfanh30.0-47.0[facility] HealthComment on above:Performed By: #### POCGL #### [address] [address]Yhsvfajyna (Bld) [Mass/Vol]13.8 g/hVPbsfih17.0-16.0[facility] HealthComment on above:Performed By: #### POCGL #### [address] [address]YYBYRELZ GRANS (IG)0.4 %[facility] Surgical HospitalComment on above:Performed By: #### POCGL #### [address] [address]Aucyttjxjtr/100 WBC (Bld)24.0 %NormalBon Secours Mercy Health Comment on above:Performed By: #### POCGL #### [address] [address]SFL (RBC) [Entitic mass]28.6 ovDpxhoj22.0-33.0[facility] HealthComment on above:Performed By: #### POCGL #### [address] [address]KVRX (RBC) [Mass/Vol]32.4 g/xOYdxrur68.2-35.5[facility]cy HealthComment on above:Performed By: #### POCGL #### [address] [address]LVX (RBC) [Entitic vol]88.2 wLRlqcxz55.0-99.0[facility] HealthComment on above:Performed By: #### POCGL #### [address] [address]Qvnxgrqmz/100 WBC (Bld)6.8 %NormalBon Secours Mercy HealthComment on above:Performed By: #### POCGL #### [address] [address]Pvrjdorcmjy/100 WBC (Bld)68.3 %NormalBon Secours Mercy Health Comment on above:Performed By: #### POCGL #### [address] [address]RPBD9 /100 wbcNormalSMedical Arts HospitalComment on above: Performed By: #### POCGL #### [address] [address]BJNTNHKY986 thou/jn7Tnchsl982-890GexpzHouston Methodist Hospital Comment on above:Performed By: #### POCGL #### [address] [address]Rdggkbsb mean volume (Bld) [Entitic vol]9.7 fLNormal9.4-12.4Bon [facility] HospitalComment on above:Performed By: #### POCGL #### [address] [address]TQY9.83 mill/rk0Kunvcq8.20-5.40SMedical Arts HospitalComment on above:Performed By: #### POCGL #### [address] [address]MMA-RE19.9 kEYxdpoj31.0-45.0[facility] Methodist HospitalComment on above:Performed By: #### POCGL #### [address] [address]EPP98.6 thou/nj0Ffvl1.8-10.8Houston Methodist HospitalComment on above:Performed By: #### POCGL #### [address] [address]OJO with Auto Differentialon 32-76-5915Bjpmpdzbq (Bld) [#/Vol]0 10*3/uLBon [facility] HospitalEosinophils Ftticinn1Kau [facility] Erythrocyte distribution width (RBC) [Entitic vol]39.9 fL35.0 - 45.0 fLBon Secours Health SystemImmature granulocytes (Bld) [#/Vol]0.05 10*3/uLBon [facility] HospitalImmature granulocytes/100 WBC (Bld)0.4 %[facility] Interpretation and review of laboratory resultsAbnormalBon Secours Health System Lymphocytes Absolute2.8Bon [facility] HospitalMonocytes Absolute0.8Bon [facility] HospitalNeutrophils Absolute7.9HighBon Secours Health SystemNucleated RBC/100 WBC (Bld) [Ratio]0 %/100 wbcBon Secours Health SystemComment on above:Performed at [facility] [address] [place] [address]Ugknjlykh (Bld) [#/Vol] 274 10*3/[facility] HospitalRBC (Bld) [#/Vol]4.83 10*6/[facility] HospitalWBC (Bld) [#/Vol]11.6 10*3/uLSentara Martha Jefferson HospitalCOMP. METABOLIC PANELon 71-07-9523Rgtgufs [Mass/Vol]4.3 g/dLNormal 3.4-4.9Houston Methodist HospitalComment on above:Performed By: #### POCGL #### [facility] [address] [place] [address]WAJ [Catalytic activity/Vol]65 U/ALrqtwp19-908ApqalCuero Regional HospitalComment on above:Performed By: #### POCGL #### [facility] [address] [place] [address]SYM [Catalytic activity/Vol]24 U/ZEksorf92-84Rwjea Rita's Medical SidneyComment on above:Performed By: #### POCGL #### [facility] [address] [place] [address]FMM [Catalytic activity/Vol]23 U/IQnlnzo95-90SwegfMedical Arts HospitalComment on above:Performed By: #### POCGL #### [facility] [address] [place] [address]Yxquxpjdw [Mass/Vol]0.4 mg/dLNormal0.3-1.2SMedical Arts HospitalComment on above:Performed By: #### POCGL #### [facility] [address] [place] [address]Edbofhb [Mass/Vol]9.6 mg/dLNormal8.8-10.2SMedical Arts HospitalComment on above:Performed By: #### POCGL #### [facility] [address] [place] [address]XH3 [Moles/Vol]26 mmol/IZfdnxk99-81UxubtHouston Methodist Hospital Comment on above:Performed By: #### POCGL #### [facility] [address] [place] [address]Ngculizklj [Mass/Vol]1.3 mg/dLHigh0.5-0.9Houston Methodist HospitalComment on above:Performed By: #### POCGL #### [facility] [address] [place] [address]Vrzidtl [Mass/Vol]259 mg/rPBlpc37-062BucncHouston Methodist Hospital Comment on above:Performed By: #### POCGL #### [facility] [address] [place] [address]Yuzmhua [Mass/Vol]7.2 g/dLNormal6.4-8.3SMedical Arts Hospital Comment on above:Performed By: #### POCGL #### [facility] [address] [place] [address] 140[address]Tqvk nitrogen [Mass/Vol]43 mg/dLHigh8-23Houston Methodist HospitalComment on above:Performed By: #### POCGL #### [facility] [address] [place] [address]Lkzvsqqj [Moles/Vol]96 mmol/AXia81-614MncftHouston Methodist Hospital Comment on above:Performed By: #### POCGL #### [facility] [address] [place] [address]WRUIUBQCN WITH REFLEX MG5.0 meq/LNormal3.5-5.2SMedical Arts HospitalComment on above:Result Comment: Low level specimen hemolysis is present as indicated by the interference index on the Yamilet analyzer. ??The reported K+ level may be falsely increased. If clinically warranted, recollection of the specimen is suggested.Performed By: #### POCGL #### [address] [address]Lholmb [Moles/Vol]136 mmol/XLzxhyh360-297YmichCuero Regional HospitalComment on above:Performed By: #### POCGL #### [facility] [address] [place], [place] [address]Scanxraqnauoc metabolic 2000 panelon 63-20-0367Mufpxsz BCG dye [Mass/Vol]4.3 g/dL3.4 - 4.9 g/dLBon Secours Mercy HealthALP [Catalytic activity/Vol]65 U/L35 - 104 U/LBon Secours Mercy HealthALT No additional P-5'-P [Catalytic activity/Vol]24 U/L10 - 35 U/LBon Secours [facility] Northy HealthComment on above:Performed at [facility] [address] [place], [place] [address]AZL [Catalytic activity/Vol]23 U/L10 - 35 U/LBon Secours Mercy HealthBilirubin [Mass/Vol]0.4 mg/dL0.3 - 1.2 mg/dLBon Secours Mercy HealthCalcium [Mass/Vol]9.6 mg/dL8.8 - 10.2 mg/dLBon Secours Mercy HealthChloride [Moles/Vol]96 mmol/LLow98 - 111 meq/LBon Secours Mercy HealthCO2 [Moles/Vol]26 mmol/L22 - 29 meq/LBon Secours Mercy HealthCreatinine [Mass/Vol]1.3 mg/dLHigh0.5 - 0.9 mg/dLBon Secours Mercy HealthGlucose [Mass/Vol]259 mg/pKTzeu93 - 109 mg/dLBon Secours Mercy HealthPotassium [Moles/Vol]5.0 mmol/L3.5 - 5.2 meq/LBon Secours [facility]heal[facility] Comment on above:Low level specimen hemolysis is present as indicated by the interference index on the Yamilet analyzer. The reported K+ level may be falsely increased. If clinically warranted, recollection of the specimen is suggested. Protein [Mass/Vol]7.2 g/dL6.4 - 8.3 g/dLBon Secours Mercy HealthSodium [Moles/Vol]136 mmol/L135 - 145 meq/LBon Secours Mercy HealthUrea nitrogen [Mass/Vol]43 mg/dLHigh8 - 23 mg/dLBon Secours Cohealoy HealthEKG 12 leadOrdered By: Kp Rodriges on 22-60-1273Jjwvtw Fmzf55KXCVoa AttorneyFee Work Phone: [phone] Raho38mkggmnhJilCorcept Therapeutics Work Phone: P-R Iwaqhjmf984 msCor[employer] Work Phone: Q-T Jtoptmed322 msBon Attorney[employer] Work Phone: QRS Wrhrewuz13 msBon [employer] Work Phone: QTc Calculation (Bazett)448 msBon Attorney[employer] Work Phone: R Srgn18ktvfnboKca AttorneyFee Work Phone: T Rrxa33lxfakffUpxAPT [employer] Work Phone: Ventricular Rnzg73RCEKsm AttorneyFee Work Phone: [phone] Attorney[employer] Work Phone: [phone] 12 leadon 62-42-0081Boeuma sinus rhythm Possible Left atrial enlargement ST & T wave abnormality, consider anterior ischemia Abnormal ECG No previous ECGs available Clinical correlation is indicated Confirmed by Kp Rodriges ([id number]) on 07/06/2024 11:10:52 PMWCOH STR Kp Andres MD - 07/06/2024 Normal sinus rhythm Possible Left atrial enlargement ST & T wave abnormality, consider anterior ischemia Abnormal ECG No previous ECGs available Clinical correlation is indicated Confirmed by Kp Rodriges ([id number]) on 07/06/2024 11:10:52 PM Bon AttorneyFeeEKG 12-LEADon 00-49-8774IFX 12-LEAD68 68 [phone] Normal sinus rhythm Possible Left atrial enlargement ST & T wave abnormality, consider anterior ischemia Abnormal ECG No previous ECGs available Clinical correlation is indicated Confirmed by Kp Rodriges ([id number]) on 07/06/2024 11:10:52 PM [email or web address]&Date=&Time=20%3a11%3a37%3a00&TestType=ECG&Site=3&OutputType=PDF&Ext=PDFNormal Houston Methodist HospitalGFR, ESTIMATEDon 83-79-7022XYE/1.73 sq M.predicted MDRD (S/P/Bld) [Vol rate/Area]46 mL/min/{1.73_m2}Abnormal>60Bon [facility] on above:Pediatric calculator link https://www.kidney.org/professionals/kdoqi/gfr_calculatorped Effective Jan 25, 2022 [...] that affects renal tubular secretion. Performed at [facility] [place] [address] Result Comment: Pediatric calculator link https://www.kidney.org/professionals/kdoqi/gfr_calculatorped Effective Jan [...] or following therapy that affects renal tubular secretion.Performed By: #### POCGL #### [employer] [address] [place], [place] [address]YHGUSTY POCon 59-44-4602Uyttjtc [Mass/Vol]280 mg/uUFnql91-617Zum [facility] on above:Performed at [facility] [address] [address]Bkjdqotpm By: #### POCGL #### [employer] [address] [place] [address]Swbtzuk Auto test strip (Bld) [Mass/Vol]on 07-06-2024 Interpretation and review of laboratory resultsAbnormalBon [facility] Equigerminal Bon [facility] Medical CenterBuyerMLS [facility] CenterINR Coag (PPP) [Relative time]on 60-87-8338Bnz [facility] [employer] [facility] CenterNo Panel Informationon 54-12-7364Elbtxfnsjfneyo and review of laboratory resultsAbnormalBon [facility] HospitalBon Seton Medical CenterBuyerMLS [facility] PROTHOMBIN TIMEon 25-42-2330MWO Coag (Bld) [Relative time]1.02 {INR}Normal 0.85-1.13SaCuero Regional HospitalComment on above:Result Comment: ---------INDICATION INR Reference Range DVT, PE, AF, AMI, tissue heart valve 2.0 to 3.0 Mechanical prosthetic valves 2.5 to 3.5Performed By: #### POCGL #### [employer] [address] [place] [address]Zykycel-TJHcu 02-79-5207NRG Coag (PPP) [Relative time]1.02 {INR} 0.85 - 1.13Bon [facility] Medical CenterBuyerMLS [facility] CenterComment on above: ---------INDICATION INR Reference Range DVT, PE, AF, AMI, tissue heart valve 2.0 to 3.0 Mechanical prosthetic valves 2.5 to 3.5 Performed at [facility] [address] [place] [address] aPTT Coag (Bld) [Time]on 08-63-6518oJTW Coag (PPP) [Time]29.5 sBon [facility] Jewish HospitalComment on above:Therapeutic Heparin Reference Range= 60-95 seconds (corresponds to 0.3 to 0.7 u/mL Anti-Xa factor activity) Performed at [facility] [address] [place], [place] [address]BuyerMLS [facility] CenterEstimated glomerular filtration rate (GFR) non- Americanon 45-55-8403XUA/1.73 sq M.predicted among non-blacks MDRD (S/P/Bld) [Vol rate/Area]Estimated glomerular filtration rate (GFR) non- Low>=60 mL/min/1.73m 2FWexner Medical CenterLaboratory - Chemistry and Chemistry - challengeon 81-38-8456Nlssbxt [Mass/Vol]9.8 mg/dL8.5-10.1 [facility] HospitalChloride [Moles/Vol]101 mmol/Y53-438VrjevkbxfOhiohealth Riverside Methodist HospitalCO2 [Moles/Vol]28.6 mmol/L21.0-32.0[facility] HospitalCreatinine [Mass/Vol]1.41 mg/dLHigh0.55-1.02[facility] HospitalGFR/1.73 sq M.predicted MDRD (S/P/Bld) [Vol rate/Area]45 mL/min/{1.73_m2}Low>=60 mL/min/1.73m 2FWexner Medical CenterGlucose [Mass/Vol]66 mg/kKLhk21-223KhhkpwiidOhiohealth Riverside Methodist HospitalPotassium [Moles/Vol]5.1 mmol/L3.5-5.1FSouthview Medical Centerodium [Moles/Vol] 139 mmol/X168-338LmlaqckcxOhiohealth Riverside Methodist HospitalUrea nitrogen [Mass/Vol]29.0 mg/dLHigh7.0-18.0[facility] HospitalUrea nitrogen/Creatinine [Mass ratio]20.6 mg/mgOhiohealth Riverside Methodist HospitalBilirubin Ql (U)LARGEAbnormal NEGATIVEOhiohealth Riverside Methodist HospitalGlucose (U) [Mass/Vol]NegativeNEGATIVE [facility] HospitalKetones Ql (U)TRACE mg/dLAbnormalNEGATIVE [facility] HospitalpH (U)5.5 [pH]5.0-9.0Marymount Hospitalpecific gravity (U) [Rel density]1.0251.005-1.025[facility] HospitalUrobilinogen Qn (U)0.2 {Nela'U}/dL0.2-1.0[facility] HospitalLaboratory - Specimen informationon 11-91-1819Kobghkoqxe (U)CLEAR CLEAROhiohealth Riverside Methodist HospitalColor (U)YELLOWYELLOWOhiohealth Riverside Methodist HospitalLaboratory - Urinalysison 43-89-1475Teoldozrm esterase Test strip Ql (U)NegativeNEGATIVEOhiohealth Riverside Methodist HospitalNitrite Ql (U)Negative NEGATIVEOhiohealth Riverside Methodist HospitalProtein Ql (U)NegativeNEG/TRACE [facility] HospitalNo Panel Informationon 02-19-6943Embmr Microscopic ReviewNOOhiohealth Riverside Methodist HospitalUrine Occult BloodNegative NEGATIVEMarymount Hospitalerum or plasma anion gap determination on 95-21-2520Nawcj gap [Moles/Vol]Serum or plasma anion gap determination [facility] HospitalNo Panel Informationon 12-48-2084Fzxnknaqpdqrd TestCOMMENT.[facility] HospitalComment on above:Test Ordered: [id number] Aerobic Cult, Extended IncubAerobic Cult, Extended Incub Note: CB Final reportReference Range: .Result 1 Comment CB Reference Range: [...] RRifampin STetracycline STrimethoprim/Sulfa SVancomycin SPerformed at: - [facility] [id number] Director: Noam Haskins PhD, Phone: [phone] Auto (Bld) [#/Vol]on 05-31-2024 Basophils (Bld) [#/Vol]Automated basophil count0.0-0.1FWexner Medical CenterBasophils/100 WBC Auto (Bld)on 06-12-9736Hnphxmlza/100 WBC (Bld)Automated basophil %0.2-2.0[facility] HospitalEosinophils/100 WBC Auto (Bld)on 73-35-7983Odmpmeoxozf/100 WBC (Bld)Automated eosinophil %0.9-7.0 [facility] HospitalErythrocyte distribution width Auto (RBC) [Ratio]on 25-88-3785Eqvaayglgar distribution width (RBC) [Ratio]Erythrocyte distribution width [Ratio] by Automated count11.0-15.0[facility] HospitalHematocrit Auto (Bld) [Volume fraction]on 55-99-1938Fxjdftblgy (Bld) [Volume fraction]Hematocrit [Volume Fraction] of Blood by Automated count 36.0-48.0[facility] HospitalHemoglobin [Mass/volume] in Bloodon 32-45-7279Ytatycaktg (Bld) [Mass/Vol]Hemoglobin [Mass/volume] in Blood12.0-16.0 [facility] HospitalLaboratory - Hematology and Cell countson 05-86-4950IDJ (Bld) [Velocity]7 mm/h<=30[facility] Immature granulocytes/100 WBC (Bld)0.2 %0.0-0.5FWexner Medical Center Leukocytes [#/volume] corrected for nucleated erythrocytes in Blood by Automated counon 58-58-5964EOH corrected for nucl RBC Auto (Bld) [#/Vol]Leukocytes [#/volume] corrected for nucleated erythrocytes in Blood by Automated coun 4.0-11.0[facility] HospitalLymphocytes Auto (Bld) [#/Vol]on 52-98-5428Fwqbzothbhz (Bld) [#/Vol]Lymphocytes [#/volume] in Blood by Automated count1.2-3.8[facility] HospitalLymphocytes/100 WBC Auto (Bld)on 71-20-6034Sbbejmpgjje/100 WBC (Bld)Lymphocytes/100 leukocytes in Blood by Automated count20.5-60.0[facility] HospitalMCH Auto (RBC) [Entitic mass]on 69-55-5303BQF (RBC) [Entitic mass]MCH [Entitic mass] by Automated count 26.7-34.0[facility] HospitalMCHC Auto (RBC) [Mass/Vol]on 26-55-4156YACE (RBC) [Mass/Vol]MCHC [Mass/volume] by Automated count29.9-35.2 [facility] HospitalMCV Auto (RBC) [Entitic vol]on 31-03-3058HVK (RBC) [Entitic vol]MCV [Entitic volume] by Automated count81.0-99.0[facility] HospitalMonocytes Auto (Bld) [#/Vol]on 86-12-4985Boshpnmsq (Bld) [#/Vol]Automated blood monocyte count0.3-0.8[facility] Monocytes/100 WBC Auto (Bld)on 05-36-9947Qxdvfktsi/100 WBC (Bld)Automated monocyte %1.7-12.0[facility] HospitalNeutrophils Auto (Bld) [#/Vol]on 59-22-8774Ptyecpxsupr (Bld) [#/Vol]Neutrophils [#/volume] in Blood by Automated count1.4-6.5FWexner Medical CenterNeutrophils/100 WBC Auto (Bld)on 93-69-1047Jhogmccjalm/100 WBC (Bld)Automated neutrophil %43.0-75.0 [facility] HospitalNo Panel Informationon 99-69-5220K-Reactive Protein, Quantitative<0.50 mg/dL<=0.50[facility] Eosinophils # (Auto)0.1 10 3/uL0.0-0.7FWexner Medical CenterImmature Granulocyte # (Auto)0.01 10 3/uL0.00-0.03[facility] Platelet mean volume Auto (Bld) [Entitic vol]on 04-64-6724Rnpgbllr mean volume (Bld) [Entitic vol]Platelet mean volume [Entitic volume] in Blood by Automated countLow9.5-13.5FWexner Medical CenterPlatelets Auto (Bld) [#/Vol]on 64-35-4577Equkcuxgp (Bld) [#/Vol]Platelets [#/volume] in Blood by Automated txdky851-291PfhmllnjgOhiohealth Riverside Methodist HospitalRBC Auto (Bld) [#/Vol]on 05-31-2024 RBC (Bld) [#/Vol]Erythrocytes [#/volume] in Blood by Automated count4.20-5.40 [facility] HospitalBasophils Auto (Bld) [#/Vol]on 12-27-2023 Basophils (Bld) [#/Vol]0.1 10 3/uL0.0-0.1FWexner Medical Center Basophils/100 WBC Auto (Bld)on 46-36-6198Wgrpfoomw/100 WBC (Bld)1.0 %0.2-2.0 [facility] HospitalCholesterol in LDL Calc [Mass/Vol]on 12-27-2023 Cholesterol in LDL [Mass/Vol]63.0 mg/dLOhiohealth Riverside Methodist HospitalComment on above:<100 mg/dl JZLSFQH792-635 mg/dl NEAR OR ABOVE EHARLPM885-781 mg/dl BORDERLINE WBTX614-041 mg/dl HIGH>190 mg/dl VERY HIGHCholesterol in VLDL Calc [Mass/Vol]on 98-70-2143Fxqtgdlhmeh in VLDL [Mass/Vol]45.8 mg/dLOhiohealth Riverside Methodist HospitalEosinophils/100 WBC Auto (Bld)on 12-27-2023 Eosinophils/100 WBC (Bld)8.3 %High0.9-7.0[facility] Erythrocyte distribution width Auto (RBC) [Ratio]on 88-83-6429Nbijveytaht distribution width (RBC) [Ratio]11.9 %11.0-15.0[facility] Estimated glomerular filtration rate (GFR) non- Americanon 12-27-2023 GFR/1.73 sq M.predicted among non-blacks MDRD (S/P/Bld) [Vol rate/Area]47 mL/min/{1.73_m2}Low>=60[facility] HospitalGlobulin Calc (S) [Mass/Vol]on 74-25-9551Eefhkdhw (S) [Mass/Vol]3.2 g/dLOhiohealth Riverside Methodist HospitalGlucose mean value [Mass/volume] in Blood Estimated from glycated hemoglobinon 54-37-7963Votfpbp glucose Estimated from glycated hemoglobin (Bld) [Mass/Vol]143 mg/dLOhiohealth Riverside Methodist HospitalHematocrit Auto (Bld) [Volume fraction]on 14-98-8517Tlsolcnrfq (Bld) [Volume fraction]39.7 %36.0-48.0 [facility] HospitalHemoglobin [Mass/volume] in Bloodon 12-27-2023 Hemoglobin (Bld) [Mass/Vol]12.9 g/dL12.0-16.0[facility] Laboratory - Chemistry and Chemistry - challengeon 54-30-4369Xjbocfc [Mass/Vol] 3.7 g/dL3.4-5.0[facility] HospitalALP [Catalytic activity/Vol]61 U/P25-359OdtjjtynqOhiohealth Riverside Methodist HospitalALT [Catalytic activity/Vol]36 U/L 14-59[facility] HospitalAST [Catalytic activity/Vol]24 U/L15-37 [facility] HospitalBilirubin [Mass/Vol]0.6 mg/dL0.2-1.0[facility] HospitalCalcium [Mass/Vol]9.2 mg/dL8.5-10.1FWexner Medical CenterChloride [Moles/Vol]101 mmol/J20-899ArpbuegxdOhiohealth Riverside Methodist HospitalCholesterol [Mass/Vol]146 mg/dL<=200[facility] Cholesterol in HDL [Mass/Vol]38 mg/eOHsz47-28EznxqdurnOhiohealth Riverside Methodist Hospital Comment on above:> or =60 mg/dl - LOW CARDIOVASCULAR RISK<40 mg/dl - HIGH CARDIOVASCULAR RISKCO2 [Moles/Vol]26.8 mmol/L21.0-32.0[facility] HospitalCreatinine [Mass/Vol]1.17 mg/dLHigh0.55-1.02[facility] HospitalGFR/1.73 sq M.predicted MDRD (S/P/Bld) [Vol rate/Area]56 mL/min/{1.73_m2} Low>=60[facility] HospitalGlucose [Mass/Vol]138 mg/yQAnks04-657 [facility] HospitalPotassium [Moles/Vol]4.5 mmol/L3.5-5.1FWexner Medical CenterProtein [Mass/Vol]6.9 g/dL6.4-8.2FSouthview Medical Centerodium [Moles/Vol]138 mmol/B555-401OtbgznkvqOhiohealth Riverside Methodist HospitalTriglyceride [Mass/Vol]229 mg/dLHigh<=150[facility] TSH Qn0.834 m[IU]/L0.358-3.740[facility] HospitalUrea nitrogen [Mass/Vol]23.0 mg/dLHigh7.0-18.0[facility] HospitalUrea nitrogen/Creatinine [Mass ratio]19.7 mg/mgOhiohealth Riverside Methodist Hospital Laboratory - Hematology and Cell countson 91-53-6554UcY3b (Bld) [Mass fraction] 6.6 %High4.5-6.2FWexner Medical CenterComment on above:ADA RECOMMENDED LIMIT 4.0 - 6.0ADA THERAPEUTIC TARGET < 7.0ACTION SUGGESTED> 7.0 Immature granulocytes/100 WBC (Bld)0.4 %0.0-0.5FWexner Medical Center Leukocytes [#/volume] corrected for nucleated erythrocytes in Blood by Automated counon 26-24-7140GZT corrected for nucl RBC Auto (Bld) [#/Vol]5.2 10 3/uL 4.0-11.0[facility] HospitalLymphocytes Auto (Bld) [#/Vol]on 05-01-1210Knpeumiqgbw (Bld) [#/Vol]2.2 10 3/uL1.2-3.8[facility] HospitalLymphocytes/100 WBC Auto (Bld)on 38-85-7054Thukzciornn/100 WBC (Bld)42.1 % 20.5-60.0[facility] Auto (RBC) [Entitic mass]on 44-57-1696ALZ (RBC) [Entitic mass]28.5 pg26.7-34.0[facility] HospitalMCHC Auto (RBC) [Mass/Vol]on 61-09-9424NEBM (RBC) [Mass/Vol]32.5 g/dL 29.9-35.2FWexner Medical CenterMCV Auto (RBC) [Entitic vol]on 85-80-4920XKD (RBC) [Entitic vol]87.8 fL81.0-99.0[facility] HospitalMonocytes Auto (Bld) [#/Vol]on 51-50-2084Exyavelmu (Bld) [#/Vol]0.3 10 3/uL0.3-0.8[facility] HospitalMonocytes/100 WBC Auto (Bld)on 20-63-4510Fhsodsdxm/100 WBC (Bld)6.4 %1.7-12.0[facility] Neutrophils Auto (Bld) [#/Vol]on 60-31-8313Hytozfugdje (Bld) [#/Vol]2.2 10 3/uL 1.4-6.5FWexner Medical CenterNeutrophils/100 WBC Auto (Bld)on 42-48-8584Nwcpqvlgkya/100 WBC (Bld)41.8 %Low43.0-75.0[facility] HospitalNo Panel Informationon 76-20-5095Kpqesyaqnnr # (Auto)0.4 10 3/uL0.0-0.7 [facility] HospitalImmature Granulocyte # (Auto)0.02 10 3/uL 0.00-0.03[facility] HospitalPlatelet mean volume Auto (Bld) [Entitic vol]on 33-77-5526Feythndk mean volume (Bld) [Entitic vol]9.6 fL9.5-13.5 [facility] HospitalPlatelets Auto (Bld) [#/Vol]on 12-27-2023 Platelets (Bld) [#/Vol]190 10 3/xS147-208UsuuecvzeOhiohealth Riverside Methodist HospitalRBC Auto (Bld) [#/Vol]on 23-17-1916RBN (Bld) [#/Vol]4.52 10 6/uL4.20-5.40Marymount Hospitalerum or plasma albumin/globulin mass ratioon 12-27-2023 Albumin/Globulin [Mass ratio]1.2 {ratio}Marymount Hospitalerum or plasma anion gap determinationon 25-12-8312Gqfko gap [Moles/Vol]14.7 mmol/L [facility] Hospitalerum or plasma total cholesterol/high density lipoprotein (HDL) cholesterol mass desiree 08-59-7285Soyhexvzvsi.total/Cholesterol in HDL [Mass ratio]3.8 {ratio}[facility] Riverside Methodist HospitalComment on above:3.3 - 4.4 LOW RISK4.4 - 7.1 AVERAGE RISK7.1 - 11.0 MODERATE RISK>11.0 HIGH RISKMRI KNEE RT WO CONon [id number] KNEE RT WO CONEXAMINATION: MRI KNEE RT WO CON HISTORY: Derangement of right [...] Electronically authenticated by: BERNY QUISPE Date: 2022-08-24 07:19[facility] AUTO DIFFon [id number] #0.0 103/ulNormal0.0-0.1The [facility] Healthcare SystemComment on above:Performed By: #### CBC #### [facility] [address] [address] [address] Rc Zhengphils/100 WBC (Bld)0.4 %Normal0.2-2.0[facility] Comment on above:Performed By: #### CBC #### [facility] [address] [address] [address] Rc Stone #0.3 103/ulNormal0.0-0.7The [facility] Healthcare SystemComment on above: Performed By: #### CBC #### [facility] [address] [place] [address] Dr. Rc Yiosinophils/100 WBC (Bld)4.9 %Normal0.9-7.0The [facility] on above:Performed By: #### CBC #### [facility] [address] [place] [address] Dr. Rc Yirythrocyte distribution width (RBC) [Ratio]12.2 %Ovuktg05.0-15.0 The [facility] Healthcare SystemComment on above:Performed By: #### CBC #### [facility] [address] [place] [address] Dr. Rc FosterHematocrit (Bld) [Volume fraction]39.8 %Gxbhpe35.0-48.0The [facility] SystemComment on above:Performed By: #### CBC #### [facility] [address] [place] [address] Dr. Rc FosterHemoglobin (Bld) [Mass/Vol]13.1 g/jKAefcva32.0-16.0The [facility] Healthcare SystemComment on above:Performed By: #### CBC #### [facility] [address] [place] [address] Dr. Rc Foster #0.02 10e3/ulNormal0.00-0.03The [facility] Healthcarement on above:Performed By: #### CBC #### [facility] [address] [place] [address] Dr. Rc Foster %0.4 %Normal0.0-0.5The [facility] SystemComment on above: Performed By: #### CBC #### [facility] [address] [place] [address] Dr. Rc RodriguezH #2.1 103/ulNormal1.2-3.8The [facility] SystemComment on above:Performed By: #### CBC #### [facility] [address] [place] [address] Dr. Rc Gemphocytes/100 WBC (Bld)37.1 %Ukzhzx59.5-60.0The [facility] Healthcare SystemComment on above:Performed By: #### CBC #### [facility] [address] [place] [address] Dr. Rc Redding DIFF REQNONormalThe [facility] Healthcare SystemComment on above: Performed By: #### CBC #### [facility] [address] [place] [address] Dr. Rc Gonzalez (RBC) [Entitic mass]28.7 tyJfuzml03.7-34.0The [facility] SystemComment on above:Performed By: #### CBC #### [facility] [address] [place] [address] Dr. Rc Gonzalez (RBC) [Mass/Vol]32.9 g/oUFbknvh28.9-35.2The [facility] Healthcare SystemComment on above:Performed By: #### CBC #### [facility] [address] [place] [address] Dr. Rc Ahmadi (RBC) [Entitic vol]87.1 mPGqzwxj89.0-99.0The [facility] Healthcare SystemComment on above:Performed By: #### CBC #### [facility] [address] [place] [address] Dr. Rc Dior #0.4 103/ulNormal0.3-0.8The [facility] SystemComment on above:Performed By: #### CBC #### [facility] [address] [place] [address] Dr. Rc Moyaocytes/100 WBC (Bld)6.7 %Normal1.7-12.0The [facility] Comment on above:Performed By: #### CBC #### [facility] [address] [place] [address] Dr. Rc Meza #2.9 103/ulNormal1.4-6.5The [facility] SystemComment on above:Performed By: #### CBC #### [facility] [address] [place] [address] Dr. Yilan ChangNeutrophils/100 WBC (Bld)50.5 %Bkeesy61.0-75.0The [facility] SystemComment on above:Performed By: #### CBC #### [facility] [address] [place] [address] Dr. Rc Callejas mean volume (Bld) [Entitic vol]9.7 fLNormal9.5-13.5The [facility] Healthcare SystemComment on above:Performed By: #### CBC #### [facility] [address] [place] [address] Dr. Rc FosterPLT189 103/arMljoke681-315Imz [facility] SystemComforest [facility] center on above: Performed By: #### CBC #### [facility] [address] [place] [address] Dr. Rc FosterRBC4.57 106/ulNormal4.20-5.40The [facility] SystemComforest health medical center on above:Performed By: #### CBC #### [facility] [address] [place] [address] Dr. Rc FosterWBC5.7 103/ulNormal4.0-11.0The [facility] SystemComment on above: Performed By: #### CBC #### [facility] [address] [place] [address] Dr. Rc FosterGLYCOHEMOGLOBIN A1Con 78-20-6281WPQ RECOMMENDATIONSEE BELOWNormal The [facility] SystemComforest health medical center on above:Result Comment: ADA RECOMMENDED LIMIT 4.0 - 6.0 ADA THERAPEUTIC TARGET < 7.0 ACTION SUGGESTED > 7.0Performed By: #### A1C #### [facility] [address] [place] [address] Dr. Rc FosterGlucose [Mass/Vol]143 mg/dLNormalThEast [place] Regional HospitalComforest health medical center on above:Performed By: #### A1C #### [facility] [address] [place] [address] Dr. Rc FosterHbA1c (Bld) [Mass fraction]6.6 %Critically high4.5-6.2The [facility] SystemComforest health medical center on above:Performed By: #### A1C #### [facility] [address] [address] [address] Rc FosterLIPID PROFILEon 76-25-4093PYFG-HDL RATIO NORMSHolmes County Joel Pomerene Memorial HospitalComforest health medical center on above:Result Comment: 3.3 - 4.4 LOW RISK 4.4 - 7.1 AVERAGE RISK 7.1 - 11.0 MODERATE RISK >11.0 HIGH RISKPerformed By: #### TSH, CMP, LIPID ####[facility] [address] [address]Dr. Yibreanna ChangCholesterol [Mass/Vol]184 mg/dLNormal<=200The [facility] SystemComforest health medical center on above:Performed By: #### TSH, CMP, LIPID ####[facility] [address] [address]Dr. Rc Foster Cholesterol in HDL [Mass/Vol]42 mg/cFRcygib70-50UglBrown Memorial HospitalComforest health medical center on above:Performed By: #### TSH, CMP, LIPID ####[facility] [address] [address]Dr. Rc FosterCholesterol in LDL [Mass/Vol] 87.0 mg/dLRegency Hospital ToledoComforest health medical center on above:Performed By: #### TSH, CMP, LIPID ####[facility] [address] [address]Dr. Rc FosterCholesterol.total/Cholesterol in HDL [Mass ratio]4.4 {ratio} NormalBrown Memorial HospitalComforest health medical center on above:Performed By: #### TSH, CMP, LIPID ####[facility] [address] [address]Dr. Yilan ChangHDL NORMAL> or = 60 mg/dl - LOW CARDIOVASCULAR RISK <40 mg/dl - HIGH CARDIOVASCULAR RISKRegency Hospital ToledoComforest health medical center on above:Performed By: #### TSH, CMP, LIPID ####[facility] [address] [address]Dr. Yilan ChangLDL CALC NORMALSEE [facility] HospitalComforest [facility] on above:Result Comment: <100 mg/dl OPTIMAL 100 - 129 mg/dl NEAR OR ABOVE OPTIMAL 130 - 159 mg/dl BORDERLINE HIGH 160 - 189 mg/dl HIGH >190 mg/dl VERY HIGHPerformed By: #### TSH, CMP, LIPID ####[facility] [address] [address]Dr. Yilan ChangTriglyceride [Mass/Vol]275 mg/dLCritically high<=150The [facility] Healthcare SystemComment on above: Performed By: #### TSH, CMP, LIPID ####[facility] [address] [address]Dr. Yilan ChangVLDL CALC55.0 mg/dLNormalThe [facility] Healthcare SystemComment on above:Performed By: #### TSH, CMP, LIPID ####[facility] [address] [address]Dr. Yilan ChangPROF 14(COMP METB)on 10-90-2944Wdxsvoi [Mass/Vol]4.0 g/dLNormal 3.4-5.0The [facility] SystemComment on above:Performed By: #### TSH, CMP, LIPID ####[facility] [address] [address]Dr. Yilan ChangAlbumin/Globulin [Mass ratio]1.1 {ratio}NormalBrown Memorial Hospital Comment on above:Performed By: #### TSH, CMP, LIPID ####[facility] [address] [address]Dr. Yilan ChangALP [Catalytic activity/Vol]71 U/JUezntb97-651Zhs [facility] SystemComment on above:Performed By: #### TSH, CMP, LIPID ####[facility] [address] [address]Dr. Yilan ChangALT [Catalytic activity/Vol]29 U/L Sipkcf73-03Lpf [facility] SystemComment on above:Performed By: #### TSH, CMP, LIPID ####[facility] [address] [address]Dr. Yilan ChangAnion gap [Moles/Vol]13.2 mmol/LNormalThe [facility] Comment on above:Performed By: #### TSH, CMP, LIPID ####[facility] [address] [address]Dr. Yilan ChangAST [Catalytic activity/Vol]17 U/MPhjzmd16-84Rzq [facility] SystemComment on above:Performed By: #### TSH, CMP, LIPID ####[facility] [address] [address]Dr. Yilan ChangBilirubin [Mass/Vol]0.6 mg/dLNormal 0.2-1.0The [facility] SystemComment on above:Performed By: #### TSH, CMP, LIPID ####[facility] [address] [place], [place] [address]Dr. Yilan ChangCalcium [Mass/Vol]9.0 mg/dLNormal8.5-10.1The [facility] SystemComment on above:Performed By: #### TSH, CMP, LIPID ####[facility] [address] [place], [place] [address]Dr. Yilan ChangChloride [Moles/Vol]102 mmol/HOzqvlz61-142Otu UK Healthcarement on above:Performed By: #### TSH, CMP, LIPID ####[facility] [address] [place], [place] [address]Dr. Yilan ChangCO2 [Moles/Vol]27.3 mmol/LNormal 21.0-32.0The [facility] SystemComment on above:Performed By: #### TSH, CMP, LIPID ####[facility] [address] [place], [place] [address]Dr. Yilan ChangCreatinine [Mass/Vol]1.00 mg/dLNormal0.55-1.02The [facility] SystemComment on above:Performed By: #### TSH, CMP, LIPID ####[facility] [address] [place], [place] [address]Dr. Yilan ChangEGFR- AF ALGERIAN>60Normal>=60The [facility] SystemComment on above:Performed By: #### TSH, CMP, LIPID ####[facility] [address] [place], [place] [address]Dr. Yilan ChangEGFR-NON AF QRRVAPLG61 mL/min/1.77g9Anbuwcwiao low>=60 The [facility] SystemComment on above:Performed By: #### TSH, CMP, LIPID ####[facility] [address] [address]Dr. Yilan ChangGlobulin (S) [Mass/Vol]3.5 g/dLNoWilson Street HospitalComment on above:Performed By: #### TSH, CMP, LIPID ####[facility] [address] [address]Dr. Yilan ChangGlucose [Mass/Vol]159 mg/dL Critically umry63-447SjjOur Lady of [facility] on above:Performed By: #### TSH, CMP, LIPID ####[facility] [address] [place], [place] [address]Dr. Yilan ChangPotassium [Moles/Vol]4.5 mmol/LNormal3.5-5.1The [facility] SystemComforest health medical center on above:Performed By: #### TSH, CMP, LIPID ####[facility] [address] [place], [place] [address]Dr. Yilan ChangProtein [Mass/Vol]7.5 g/dLNormal6.4-8.2The [facility] SystemComforest health medical center on above:Performed By: #### TSH, CMP, LIPID ####[facility] [address] [address]Dr. Yilan ChangSodium [Moles/Vol]138 mmol/L Qwkwer270-289Nol [facility] on above:Performed By: #### TSH, CMP, LIPID ####[facility] [address] [place], [place] [address]Dr. Yilan ChangUrea nitrogen [Mass/Vol]23.0 mg/dLCritically high7.0-18.0The [facility] Healthcarement on above:Performed By: #### TSH, CMP, LIPID ####[facility] [address] [place], [place] [address]Dr. Yilan ChangUrea nitrogen/Creatinine [Mass ratio]23.0 mg/mgNoWilson Street HospitalComment on above:Performed By: #### TSH, CMP, LIPID ####[facility] [address] [place], [place] [address]Dd. Rc Porter 59-64-6413HGD0.807 uIU/mLNormal0.358-3.740Brown [facility] HospitalComment on above: Performed By: #### TSH, CMP, LIPID ####[facility] [address] [place], [place] [address]Yq. Rc Stock THYROIDon 33-24-2293SU THYROID EXAMINATION: US THYROID HISTORY: Non-toxic uninodular [...] Electronically authenticated by: BERNY QUISPE Date: 2022-03-30 11:03[facility] ToledoMG MAMM SCREEN 3D LEX CADon 75-28-5680PF MAMM SCREEN 3D LEX CAD Patient: CARROLL FUENTES Exam Date: 03/19/2022 : 1960 Gender:F Ordering : DR ROBERT VILLASENOR D.O. Admission #: [id number] Family : Order #: [id number] CLICK HERE TO VIEW EXAM RADIOLOGY REPORT [...] Treatments None Family Cancers None LOCATION: [facility] BREAST COMPOSITION: Scattered areas fibroglandular density. [...] by: Berny Quispe M.D. on 03/23/2022 at 11:59NormalThCommunity Memorial Hospital AUTO DIFFon 96-77-9434LCFM #0.0 103/ulNormal0.0-0.1[facility] HospitalComment on above:Performed By: #### CBC #### [facility] [address] [place] [address] Dr. Rc Suárezsophils/100 WBC (Bld)0.7 %Normal0.2-2.0[facility] Comment on above:Performed By: #### CBC #### [facility] [address] [place] [address] Dr. Rc Stone #0.6 103/ulNormal0.0-0.7The [facility] SystemComment on above: Performed By: #### CBC #### [facility] [address] [place] [address] Dr. Rc Yiosinophils/100 WBC (Bld)10.3 %Critically high0.9-7.0The [facility] SystemComment on above:Performed By: #### CBC #### [facility] [address] [place] [address] Dr. Yilan ChangErythrocyte distribution width (RBC) [Ratio]12.4 %Basdix99.0-15.0 The [facility] Healthcare SystemComment on above:Performed By: #### CBC #### [facility] [address] [place] [address] Dr. Rc FosterHematocrit (Bld) [Volume fraction]41.2 %Mtqzjy77.0-48.0The [facility] SystemComment on above:Performed By: #### CBC #### [facility] [address] [place] [address] Dr. Rc FosterHemoglobin (Bld) [Mass/Vol]13.4 g/uUZjwsvn84.0-16.0The [facility] SystemComment on above:Performed By: #### CBC #### [facility] [address] [place] [address] Dr. Rc Foster #0.01 10e3/ulNormal0.00-0.03The [facility] SystemComment on above:Performed By: #### CBC #### [facility] [address] [place] [address] Dr. Rc Foster %0.2 %Normal0.0-0.5The [facility] SystemComforest health medical center on above: Performed By: #### CBC #### [facility] [address] [place] [address] Dr. Rc RodriguezH #2.3 103/ulNormal1.2-3.8The [facility] SystemComment on above:Performed By: #### CBC #### [facility] [address] [place] [address] Dr. Rc Gemphocytes/100 WBC (Bld)40.6 %Zztloz40.5-60.0The [facility] SystemComforest health medical center on above:Performed By: #### CBC #### [facility] [address] [place] [address] Dr. Rc GaoUAL DIFF REQNONormalThe [facility] SystemComment on above: Performed By: #### CBC #### [facility] [address] [place] [address] Dr. Rc Gonzalez (RBC) [Entitic mass]28.8 buBlbsyk27.7-34.0The [facility] SystemComment on above:Performed By: #### CBC #### [facility] [address] [place] [address] Dr. Rc Gonzalez (RBC) [Mass/Vol]32.5 g/aWWancan06.9-35.2The [facility] SystemComment on above:Performed By: #### CBC #### [facility] [address] [place] [address] Dr. Rc Gonzalez (RBC) [Entitic vol]88.6 vSSvafhf56.0-99.0The [facility] SystemComment on above:Performed By: #### CBC #### [facility] [address] [place] [address] Dr. Rc Dior #0.4 103/ulNormal0.3-0.8The [facility] SystemComment on above:Performed By: #### CBC #### [facility] [address] [place] [address] Dr. Rc Moyaocytes/100 WBC (Bld)7.6 %Normal1.7-12.0The [facility] Comment on above:Performed By: #### CBC #### [facility] [address] [place] [address] Dr. Rc Meza #2.3 103/ulNormal1.4-6.5The [facility] SystemComment on above:Performed By: #### CBC #### [facility] [address] [place] [address] Dr. Rc Tatumutrophils/100 WBC (Bld)40.6 %Critically low43.0-75.0The [facility] SystemComment on above:Performed By: #### CBC #### [facility] [address] [place] [address] Dr. Rc Toussaintlet mean volume (Bld) [Entitic vol]9.6 fLNormal9.5-13.5The [facility] SystemComment on above:Performed By: #### CBC #### [facility] [address] [address] [address] Rc FosterPLT194 103/zqVbahuk430-253Dqu [facility] on above: Performed By: #### CBC #### [facility] [address] [place] [address] Dr. Rc FosterRBC4.65 106/ulNormal4.20-5.40The [facility] SystemComforest health medical center on above:Performed By: #### CBC #### [facility] [address] [place] [address] Dr. Rc FosterWBC5.5 103/ulNormal4.0-11.0The [facility] on above: Performed By: #### CBC #### [facility] [address] [place] [address] Dr. Rc FosterGLYCOHEMOGLOBIN A1Con 34-20-3548WCV RECOMMENDATIONSEE BELOWNormfl The [facility] SystemComforest [facility] medical center on above:Result Comment: ADA RECOMMENDED LIMIT 4.0 - 6.0 ADA THERAPEUTIC TARGET < 7.0 ACTION SUGGESTED > 7.0Performed By: #### A1C #### [facility] [address] [place] [address] Dr. Rc FosterGlucose [Mass/Vol]131 mg/dLNormalThe [facility] on above:Performed By: #### A1C #### [facility] [address] [place] [address] Dr. Rc FosterHbA1c (Bld) [Mass fraction]6.2 %Normal4.5-6.2The [facility] on above:Performed By: #### A1C #### [facility] [address] [place] [address] Dr. cR FosterPROF CHEM 8 (BAS METB)on 42-27-1909Jddbj gap [Moles/Vol]15.2 mmol/LNormalOur Lady of [facility] Hospital on above:Performed By: #### TSH, BMP #### [facility] [address] [place] [address] Dr. Rc FosterCalcium [Mass/Vol]8.5 mg/dLNormal8.5-10.1The [facility] Comment on above:Performed By: #### TSH, BMP #### [facility] [address] [place] [address] Dr. Rc FosterChloride [Moles/Vol]100 mmol/EZnpfhv45-136Idz [facility] Comment on above:Performed By: #### TSH, BMP #### [facility] [address] [place] [address] Dr. Rc FosterCO2 [Moles/Vol]26.6 mmol/DXeeenr12.0-32.0The [facility] Comment on above:Performed By: #### TSH, BMP #### [facility] [address] [place] [address] Dr. Rc FosterCreatinine [Mass/Vol]1.15 mg/dLCritically high0.55-1.02The [facility] SystemComment on above:Performed By: #### TSH, BMP #### [facility] [address] [place] [address] Dr. Tatum ChangEGFR-AF SVXALZGJ89 mL/min/1.62r4Fcfrmtrttw low>=60The [facility] SystemComment on above:Performed By: #### TSH, BMP #### [facility] [address] [place] [address] Dr. Rc YiGFR-NON AF DVIZGIIV50 mL/min/1.35n8Xyzmkyjwmn low>=60The [facility] SystemComment on above:Performed By: #### TSH, BMP #### [facility] [address] [place] [address] Dr. Rc FosterGlucose [Mass/Vol]211 mg/dLCritically csbf39-802Rsy [facility] SystemComment on above:Performed By: #### TSH, BMP #### [facility] [address] [place] [address] Dr. Rc FosterPotassium [Moles/Vol]4.8 mmol/LNormal3.5-5.1The [facility] Comment on above:Performed By: #### TSH, BMP #### [facility] [address] [address] [address] Rc FosterSodium [Moles/Vol]137 mmol/USbvtmp392-253Dox [facility] Comment on above:Performed By: #### TSH, BMP #### [facility] [address] [place] [address] Dr. Rc Jamison nitrogen [Mass/Vol]33.0 mg/dLCritically high7.0-18.0The [facility] SystemComment on above:Performed By: #### TSH, BMP #### [facility] [address] [place] [address] Dr. Rc Jamison nitrogen/Creatinine [Mass ratio]28.7 mg/mgNormalThe [facility] SystemComment on above:Performed By: #### TSH, BMP #### [facility] [address] [place] [address] Dr. Rc Porter 18-40-3923BJI1.744 uIU/mLNormal0.358-3.740The [facility] SystemComment on above:Performed By: #### TSH, BMP #### [facility] [address] [place] [address] Dr. Rc GarciaMPTOMATIC COVID-19 ANTIGENon 73-13-3105VDY StatementSEE BELOW NormalThe [facility] on above:Result Comment: This test has not been FDA [...] declaration is terminated or authorization is revoked sooner.Performed By: #### CVDAGS ####[facility] [address] [place], [place] [address]PqRodger Lazo-CoV-2 (COVID-19) RNA YARED+probe Ql (Unsp spec)NegativeNormalNEGATIVEThe [facility] SystemComment on above:Performed By: #### CVDAGS ####[facility] [address] [place], [place] [address]LyRodger FosterGLYCOHEMOGLOBIN A1Con 68-29-7070HMX RECOMMENDATIONSEE BELOWNoWilson Street HospitalComment on above:Result Comment: ADA RECOMMENDED LIMIT 4.0 - 6.0 ADA THERAPEUTIC TARGET < 7.0 ACTION SUGGESTED > 7.0Performed By: #### A1C #### [facility] [address] [address] [address] Rc FosterGlucose [Mass/Vol]128 mg/dLNoWilson Street HospitalComment on above:Performed By: #### A1C #### [facility] [address] [address] [address] Rc FosterHbA1c (Bld) [Mass fraction]6.1 %Normal4.5-6.2The [facility] SystemComment on above:Performed By: #### A1C #### [facility] [address] [address] [address] Rc Sears CCD Assessmenton 18-74-2727Ccrhfxahj CCD AssessmentSt. [facility] Hospital Patient: CARROLL FUENTES [address] [place] [address] MR#: [id number] DISCHARGE CCD ASSESSMENT : 58 Service Date: 09/06/20 1018 Discharge CCD Assessment Assessment Patient discharged home to continue exercises, pain medication, and wound care Electronically Signed eSign Date and Time Melyssa Flores 09/06/20 1019 Tera Hernandez MDNormalSt. Beverly HospitalGLUCOSE METERon 80-23-0754Tbkbpov [Mass/Vol]126 mg/eFPgfn86-95To. [facility] Comment on above:Order Comment: CONSERVATIONResult Comment: Fasting GLUCOSE reference range has been updated per (ADA) [place] [employer]'s recommendation. 07/18/2018Performed By: #### L500.81247 ####Test performed at: [address] [address]Atrvgxq [Mass/Vol]205 mg/dLXvoj63-27Lr. Beverly HospitalComment on above:Order Comment: CONSERVATIONResult Comment: Fasting GLUCOSE reference range has been updated per (ADA) [place] [employer]'s recommendation. 07/18/2018 Insulin per sl scalePerformed By: #### L500.61692 #### Test performed at: [address] [address]Iuebwwhj Med Progress Noteon 55-00-6104Irxbwfqm Med Progress NoteSt. [facility] Hospital Patient: CARROLL FUENTES [address] [place] [address] MR#: [id number] PROGRESS NOTE - Internal Medicine : 58 [...] Time Ana Flanagan RES, Katarzyna MD 09/06/20 1134NormalSt. [facility] Hospital Orthopedic Progress Noteon 62-83-6830Icigotqurq Progress NoteSt. [facility] Hospital Patient: CARROLL FUENTES [address] [place] [address] MR#: [id number] PROGRESS NOTE - Orthopedic : 58 Service [...] Time Selene Newton RN 09/06/20 1022 Tera Hernandez. [facility] HospitalAnesthesia Noteon 97-44-2757Ijqhshwxmb NoteSt. [facility] Hospital Patient: CARROLL FUENTES [address] [place] [address] MR#: [id number] ANESTHESIA NOTE : Service Date: 09/05/20811 Post-anesthesia [...] Signed eSign Date and Time Krystian Akers SUPERINTENDENT CONTAINER TERMINAL-LABOR RELATIONS SPECIALIST 09/05/20 0813 Chu Glez. [facility] HospitalBASIC MET PANELon 42-88-3177Iwrrh gap [Moles/Vol]12 mmol/LNormal6-18St. Beverly HospitalComment on above:Performed By: #### L500.39852, L500.05054 #### Test performed at: [address] [address]Xbessxp [Mass/Vol]8.7 mg/dLNormal8.5-10.1St. Beverly HospitalComment on above:Performed By: #### L500.03007, L500.64666 #### Test performed at: [address] [address]Zrljdytj [Moles/Vol]101 mmol/MTxowar70-069Iv. Beverly HospitalComment on above:Performed By: #### L500.89514, L500.84195 #### Test performed at: [address] [address]NQ1 [Moles/Vol]25 mmol/MQjoetj87-96Pl. Beverly HospitalComment on above:Performed By: #### L500.07510, L500.80394 #### Test performed at: [address] [address]Pbsvypqyka [Mass/Vol]1.020 mg/dLNormal0.550-1.020St. Beverly HospitalComment on above:Performed By: #### L500.36054, L500.30226 #### Test performed at: [address] [address]Iswtrvb [Mass/Vol]264 mg/cWVogx48-18Wa. Beverly HospitalComment on above:Result Comment: Fasting GLUCOSE reference range has been updated per (ADA) [place] Diabetes Association's recommendation. 07/18/2018Performed By: #### L500.44841, L500.90874 #### Test performed at: [address] [address]IQF354 mosm/oyPztjug401-261Mh. Beverly HospitalComment on above:Performed By: #### L500.18364, L500.61731 #### Test performed at: [address] [address]Tcroiypeg [Moles/Vol]4.5 mmol/LNormal3.5-5.1St. Beverly HospitalComment on above:Performed By: #### L500.86089, L500.35219 #### Test performed at: [address] [address]Vzgtmx [Moles/Vol]134 mmol/UQow809-401Il. Beverly HospitalComment on above:Performed By: #### L500.61538, L500.76164 #### Test performed at: [address] [address]Fshd nitrogen [Mass/Vol]17 mg/dLNormal7-18St. Beverly HospitalComment on above:Performed By: #### L500.76869, L500.85559 #### Test performed at: [address] [address]BGM ESTIMATEon 44-78-1032JZ AMER> 60Normal> 60St. Beverly HospitalComment on above:Result Comment: eGFR (Estimated GFR) Units of measure:mL/min/1.73 meters sq. *CALCULATION REVISED 02/11/2015;IDMS-traceable MDRD equation eGFR is derived from the reexpressed MDRD Study equation using the following parameters: serum creatinine, age, gender and race. An eGFR<60 mL/min/1.73m2 for >3 months is consistent with chronic kidney disease. Refer to KDOQI guidelines for clinical interpretation.Performed By: #### L500.21927, L500.73846 #### Test performed at: [address] [address]YK non-AFR WMXJ99Nke> 60[facility] Comment on above:Performed By: #### L500.04375, L500.67388 #### Test performed at: [address] [address]WNXAUIG METERon 22-68-2523Xxobnyq [Mass/Vol]177 mg/dLHigh 70-99St. Beverly HospitalComment on above:Order Comment: CONSERVATIONResult Comment: Fasting GLUCOSE reference range has been updated per (ADA) [place] Diabetes Association's recommendation. 07/18/2018Performed By: #### L500.74179 #### Test performed at: [address] [address]Kwhnlft [Mass/Vol]310 mg/cVVsoz59-72Tf. Beverly HospitalComment on above:Result Comment: Fasting GLUCOSE reference range has been updated per (ADA) [place] Diabetes Association's recommendation. 07/18/2018 Insulin per scalePerformed By: #### L500.43541 ####Test performed at: [address] [address]Uiueici [Mass/Vol]281 mg/kKIvag80-87Jc. Beverly HospitalComment on above: Result Comment: Fasting GLUCOSE reference range has been updated per (ADA) [place] Diabetes Association's recommendation. 07/18/2018 Insulin per scalePerformed By: #### L500.59766 #### Test performed at: [address] [address]Jwaeqpw [Mass/Vol]105 mg/iSXsxy05-09Jf. Beverly HospitalComment on above:Result Comment: Fasting GLUCOSE reference range has been updated per (ADA) [place] Diabetes Association's recommendation. 07/18/2018Performed By: #### L500.06534 #### Test performed at: [address] [address]QBT AND HCTon 24-16-9255Wdagdauqpj (Bld) [Volume fraction] 37.5 %Uvlzjm53.0-48.0St. Beverly HospitalComment on above: Performed By: #### L200.67118 #### Test performed at: [address] [address]Ncpfsgyifz (Bld) [Mass/Vol]12.5 g/yHLphjus54.0-15.0St. Beverly HospitalComment on above:Performed By: #### L200.73882 #### Test performed at: [address] [address]Hftetlpi Med Progress Noteon 28-53-4764Bcaffndo Med Progress NoteSt. Beverly Hospital Patient: CARROLL FUENTES [address] [place] [address] MR#: [id number] PROGRESS NOTE - Internal Medicine : 58 Service Date: 09/05/20 08 Subjective Summary of Stay Ms. Fuentes is [...] reflect my input. Disc (more content not included)...NormalSt. Beverly HospitalOT Therapy Recommendationson 19-44-3553KW Therapy RecommendationsSt. Beverly Hospital Patient: CARROLL FUENTES [address] [place] [address] MR#: [id number] OT THERAPY RECOMMENDATIONS : 58 Service Date: 09/05/20 1511 Therapy Recommendations Therapy Recommendations Recommendations OT evaluation completed. OT recommends HOME with FAmily assist. No further acute OT needs are indicated at this time. Electronically Signed eSign Date and Time MarcoravenTrupti OT 09/05/20 1512NormalSt[address] [facility] Hospital Orthopedic Progress Noteon 55-49-3933Czyjskznnd Progress NoteSt. Beverly Hospital Patient: CARROLL FUENTES [address] [address] MR#: [id number] PROGRESS NOTE - Orthopedic : 58 Service [...] and Time PESICKA,RUBEN 09/05/20 1429 Tera Hernandez MDNormalSt. Beverly HospitalPT Therapy Recommendationson 95-20-2130VY Therapy RecommendationsSt. Beverly Hospital Patient: CARROLL FUENTES [address] [id number] MR#: [id number] PT THERAPY RECOMMENDATIONS : 58 Service Date: 09/05/20 0914 Therapy Recommendations Therapy Recommendations Recommendations PT eval complete. No further acute PT needs. Recommend d/c home /c family assist. Electronically Signed eSign Date and Time Tiffanie Bashir PT 09/05/20 0914NormalSt. Beverly Hospitalz OT Inpatient Discharge Noteon 09-05-2020z OT Inpatient Discharge NoteSt. Beverly Hospital Patient: CARROLL FUENTES [address] [id number] MR#: [id number] OT INPATIENT DISCHARGE NOTE : 58 Service [...] Date and Time Trupti Rojas OT 09/05/20 1534NormalSt. Beverly Hospitalz OT Inpatient Evaluationon 09-05-2020z OT Inpatient EvaluationSt. 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 Objective Precautions Lumbar [...] Rehab Potential Excellent Nader (more content not included)...NormalSt. Beverly Hospitalz PT Inpatient Discharge Noteon 09-05-2020z PT Inpatient Discharge NoteSt. [facility] Hospital Patient: CARROLL FUENTES [address] [place] [address] MR#: [id number] PT INPATIENT DISCHARGE NOTE : 58 Service [...] Date and Time Tiffanie Bashir PT 09/05/20 1139NormalSt. Beverly Hospitalz PT Inpatient Evaluationon 09-05-2020z PT Inpatient EvaluationSt. [facility] Hospital Patient: CARROLL FUENTES [address] [place] [address] MR#: [id number] PT INPATIENT EVALUATION : 58 Service Date: 09/05/20 0928 Inpatient PT HPI Date of Service 09/05/20 Time In: 0845 Time Out: 0907 Total Treatment Time (Mins) 22 Room Number 624 Visit Reason LATERAL RECESS STENOSIS W/ RADICULOPATHY Surgery Type: L L4-5 lami, foraminotomy, decompression Surgery Date: 09/04/20 Referral Date 09/04/20 Tx Diagnosis: LOW BACK PAIN Insurance Name [facility] [place] Course 60 y.o female at [facility] for above sx d/t lateral recess [...] posture. 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 Pt agreeable to use of her cane [...] Date and Time Tiffanie Bashir PT 09/05/20 [address]St[address] Beverly HospitalGLUCOSE METERon 44-86-8431Nunhauq [Mass/Vol]94 mg/nBBdzncu19-12Kq. Beverly HospitalComment on above:Result Comment: Fasting GLUCOSE reference range has been updated per (ADA) [place] Diabetes Association's recommendation. 07/18/2018Performed By: #### L500.79650 ####Test performed at: [address] [place] [address]Internal Medicine Consultationon 09-04-2020 Internal Medicine ConsultationSt. [facility] Hospital Patient: CARROLL FUENTES [address] [place] [address] MR#: [id number] CONSULTATION - Internal Medicine : 58 Service [...] MATHUR on 12/11/1816 Last Action: Reviewed on 09/04/20 105 by [...] CABELLO Review of Systems (more content not included)...NormalSt. Beverly HospitalOPERATIVE REPORTon 10-73-9295OHCPTYKSQ REPORTNAME: CARROLL FUENTES MR#: [id number] SURGEON: Tera Hernandez MD DATE OF SURGERY: [...] there were no complications. TERA HERNANDEZ MD [facility] PT NAME: CARROLL FUENTES MR#: [id number] [address] [place], [place] [address] ACCT: [id number] : 58 OPERATIVE REPORT JFS/MODL/[id number] E/S: Tera Hernandez MD 09/18/20 1207 Electronically Signed [facility] PT NAME: CARROLL FUENTES MR#: [id number] [address] [place], [place] [address] ACCT: [id number] : 58 OPERATIVE REPORTNormalSt. Beverly HospitalPrimary Residenton 61-76-8766Qanbqao ResidentSTLAKESIDE [facility] Pt Name: CARROLL FUENTES MR#: [id number] [address] [place] [address] ACCT: [id number] [place] [id number] : 58 Service Date: 09/04/20 1603 Primary Resident/Call Primary Resident: [id number] [address] After Hours Call: [phone] Red Team Electronically Signed eSign Date and Time Ana Flanagan RES 09/16/20 1521NormalSt. Beverly HospitalLUMBAR SPINE 2 OR 3 VIEWSon 69-25-9286IWWILN SPINE 2 OR 3 VIEWSSTUDY: LUMBAR SPINE 2 OR 3 VIEWS; 09/04/2020 2:57 pm INDICATION: LEFT L4-L5 LAMINECTOMY,FORAMINOTOMY,DECOMPRESSION. COMPARISON: None. ACCESSION NUMBER(S): [id number] ORDERING CLINICIAN: Tera Hernandez FINDINGS: Intraoperative fluoroscopy of the lumbar spine demonstrates surgical instruments posterior to L5. IMPRESSION: As aboveNormalSt. Beverly HospitalCHEST PA/AP & LATERALon 92-23-5526CGLCQ PA/AP & LATERALSTUDY: CHEST PA/AP LATERAL; 08/25/2020 11:00 am INDICATION: SOB/PAT. COMPARISON: None. ACCESSION NUMBER(S): [id number] ORDERING CLINICIAN: Madelyn Leone FINDINGS: The lungs are clear without pleural effusion. Normal heart size, mediastinum, elzbieta, and pulmonary vasculature. IMPRESSION: No active disease in the chest.NormalSt. Beverly Hospital CONSULTATION REPORTon 38-46-2159OHYZCIGPAGFS REPORTNAME: CARROLL FUENTES MR#: [id number] SHOP ASSISTANT: Madelyn Leone MD DATE OF CONSULTATION: 08/25/2020 [...] pulse ox is 98% on room air. [facility] PT NAME: CARROLL FUENTES MR#: [id number] [address] [place] [address] ACCT: [id number] : 58 CONSULTATION HEENT: Atraumatic head. 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 IMPRESSION: 1. Preop clearance for L4-L5 disk [...] courtesy of this consultation. MADELYN LEONE MD MS/MODL/[id number] E/S: Madelyn Leone MD 08/26/20 3390 Electronically Signed [facility] PT NAME: CARROLL FUENTES MR#: [id number] [address] [place] [address] ACCT: [id number] : 58 CONSULTATIONNormalSt. Beverly HospitalLU SP COMP W FLEX/EXT 6 VWS>on 88-25-0183ZSHG SP COMP W FLEX/EXT 6 VWS>STUDY: LUMB SP COMP W FLEX/EXT 6 VWS>; 08/08/2020 9:43 am INDICATION: BACK PAIN. COMPARISON: No available comparisons. ACCESSION NUMBER(S): [id number] ORDERING CLINICIAN: Tera Hernandez TECHNIQUE: 6 views [...] stenosis at L5-S1 level. No evidence of instability..NormalSt. Beverly HospitalXR SHLDR >/=3V AP/RUSH AP/OTHR RTon 61-23-2086SL SHLDR >/=3V AP/RUSH AP/OTHR RT* * *Final Report* * * DATE OF [...] MUNIZ MD on Jul 03 2018 10:17AM [facility] [id number]_IDCSIACNNormalHillgreene memorial hospitalst HospitalANES Holly 64-66-3267MSWS POSTHNO ID: [id number] Author: Rohit Velarde Service: Anesthesiology Author Type: [...] June 20, 2018 TIME: 2:38 PM PAGER/CONTACT #:Chilosofy HospitalANES PREOPon 25-53-4770BHFS PREOPHNO ID: [id number] Author: Rohit Velarde Service: Anesthesiology Author Type: [...] infusion 5-30 mL/hr INTRAVENOUS CONTINUOUS Isreal Kim) Weld ceFAZolin iv piggyback 2 g in D5W (iso-osmotic) 100 mL (ANCEF) 2 g INTRAVENOUS Pre-Op Once Isreal Kim) Trent acetaminophen 1,000 mg tab(s) (TYLENOL) 1,000 mg ORAL ONCE Isreal Kim) Weld bupivacaine liposome (PF) 1.3 % (13.3 mg/mL) [...] June 20, 2018 TIME: 9:35 AM CSN: [id number]+Memorial Hospital NOTon 86-66-3339MNUJW OP NOTO ID: [id number] Author: Kusum Francisco Service: Orthopaedic Surgery Author Type: Resident Type: Brief Op Note Filed: 06/20/2018 5:49 PM Note Text: BRIEF OP NOTE LOG ID: [id number] Surgery/Procedure Date: 06/20/2018 Incision/Procedure Start Time: 11:18 AM Incision Close/Procedure End Time: 1:17 PM Surgeon(s)/Proceduralist(s) and Auto Body Detailer(s): Surgeon(s) and Role: * Jenna Garsia - [...] June 20, 2018 TIME: 5:49 PM PAGER/CONTACT #:NormalEusofy [facility] Valley Medical CenterCASE MANAGEAlvin J. Siteman Cancer Center 98-39-1551QVPX MANAGENO ID: [id number] Author: May Herrera (Sw) Service: Care Management Author Type: Human Resource Advisor Type: Care Mgt Progress Note Filed: 06/20/2018 [...] is pcp summary of care sent via RelTel () Nurse to provide discharge instructions. TRANSPORTATION ARRANGEMENTS: Car Spouse ADDITIONAL CONTACT RESOURCES: Needs Prior to Discharge: Ready for Discharge Appointments for Next 45 Days Date Time Provider Location Dept Phone 07/03/2018 10:00 AM CAROLA BAPTISTE AT [phone] 07/03/2018 10:30 AM GABRIEL CANTU) LATOSHA AT [phone] 07/31/2018 2:15 PM JENNA GARSIA AT [phone] Pt to be discharged home to follow up as above. 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 O.Therapy recommend home. Spouse visiting at bedside and will transport pt home later today.Further discharge needs not anticipated.SW/TCC to follow to assist with plans for discharge. SIGNATURE: DARIO Saini PATIENT NAME: Carroll Fuentes DATE: June 20, 2018 TIME: 5:27 PM PAGER/CONTACT #: [phone]s Mental Health CenterCONSULTon 06-20-2018 CONSULTHNO ID: [id number] Author: Dulce Green Service: General Internal Medicine [...] Disp: Rfl: 06/19/2018 at 0630 rizatriptan (MAXALT OIL GAS AND PIPE TESTER) 10 mg disintegrating tablet DISSOLVE 1 TABLET [...] the care of your patient. Dulce Green APRN.TIRE BLADDER MAKER June 20, 2018 4:34 PMNormalEuid [facility] 22-01-3322Nlmxfjt mass concHNO ID: [id number] Author: Fela (Rn) FLETCHER Phillips Service: (none) Author Type: Registered Nurse Type: Nursing Progress Note Filed: 06/20/2018 7:39 PM Note Text: Nursing Progress Note Patient Name: Carroll Fuentes Patient Location: [place] [address]-* Daily Note: 1545. Care assumed. Pt resting comfortably in bed, call light and possessions within reach. Lungs clear on RA, denies SOB and chest pain. Bowel sounds present, denies nausea. Sling immobilizer in place to R armRodger bowers. Sensation intact, able to wiggle fingers. Plan is to see OT, once cleared by them pt can be D/Anderson per Sun. 1400. OT at bedside. 1720. Dr. eMeks and Dulce ALIGNER TYPEWRITER at bedside, plan is to stay for [...] This note was completed by: Fela Phillips RNBrooks Hospital concHNO ID: [id number] Author: Wendy (Rn) FLETCHER Underwood Service: Nursing Author Type: Registered Nurse Type: Nursing Progress Note Filed: 06/20/2018 10:20 AM Note Text: Nursing Progress Note Patient Name: Carroll Fuentes Patient Location: SURGERY [facility]/ S* Daily Note:Right interscalene nerve block with ultrasound guidance with Dr. Velarde and Dr. Marlow at bedside. Patient tolerated procedure well, VSS, will continue to monitor as we wait for OR team. Resting comfortably with no complaints of pain at this time. This note was completed by: Wendy Underwood RNSt. Joseph's Regional Medical Center NOon 77-24-9993MHGXFDVNS NOHNO ID: [id number] Author: Jenna Garsia Service: Orthopaedic Surgery Author Type: Physician Type: Operative Report Filed: 06/20/2018 1:25 PM Note Text: [place] [address] [place] OPERATIVE REPORT NAME: Carroll Fuentes [facility] #: [id number] DATE: 06/20/2018 (11:18am-1:17pm) AGE: 58 SURGEON 1: Jenna Garsia M.D. FILM CLEANER: 1. Augie Coates M.D. 2. Kusum Prasad M.D. 3. Mundo Pablo OPERATION: Right total shoulder arthroplasty, biceps tenodesis. ANESTHESIA: General anesthesia with regional interscalene nerve block for postoperative pain control. PREOPERATIVE DIAGNOSIS: Right shoulder primary glenohumeral osteoarthritis. POSTOPERATIVE DIAGNOSIS: Right shoulder primary glenohumeral osteoarthritis, biceps tendinopathy. OPERATIVE INDICATIONS: The patient is a 58 year oldvyd-fhmx-yzt right-hand dominant white female who has a [...] rotator interval stitch was then passed in qzvetm-lb-fdohl fashion with a #2 Ticron suture and tied down to close the lateral rotator interval and set the osteotomy superiorly. The two #2 Fiberwire sutures coming out of the bicipital groove were then sequentially passed in a ywuppm-gz-xnowf fashion medial to the horizontal mattress and [...] SPECIMENS: none COMPLICATIONS: none apparent Jenna Garsia M.D.St. [facility]'s Medical CenterPT EDon 90-59-2280BK EDHNO ID: [id number] Author: Cindy ValenciaRn) FLETCHER Griffin Service: (none) [...] Signed By: Cindy Griffin RN In Department: [facility] SURGICAL SERVICESSt. Vincent's Medical CenterTHERAPY NTon 01-00-2762SPYHPXM NT HNO ID: [id number] Author: Abi ValenciaOtTyesha Phillips Service: Occupational Therapy Author Type: Occupational Therapist Type: Therapy (PT/OT/Speech/Resp) Filed: 06/20/2018 4:59 PM Note Text: Occupational Therapy Evaluation SERVICE DATE: 06/20/2018 SERVICE TIME: 1550 to 1640 ROOM: [facility] FL-523-P Recommended Discharge Disposition: Home Anticipated Discharge Needs: Physical Assist at Home Physical Assist at Home for: Shopping;Transportation;Cleaning;Laundry;Meals;Medication Management OT Recommendations to Nursing: ADL?s in [...] Session Occupational Therapy Problem List: Education Deficit;Safety Deficits;Pain;Edema;Impaired Self Care;Decreased Activity Tolerance;Decreased Skin Integrity Patient [...] daily living (ADL) Interventions Provided: Evaluation;Therapeutic Exercise (14911);Self Chcf Management (91002) $ Evaluation-Low (97497) Billed Units: 1 unit Therapeutic Exercise (17701) Treatment Minutes: 10 1 unit Skilled Intervention(s): Education in Self Chcf Management (91253) Treatment Minutes: 28 2 units Skilled Intervention(s): [...] Lives With: Spouse Assistance Available: night time babysitter Number Of Stairs To Bed/Bath: 0 Equipment [...] details for this therapy evaluation/treatment. SIGNATURE: Abi Christopher, OTR/L PATIENT NAME: Carroll Fuentes DATE: June 20, 2018 TIME: 4:54 [facility]XR SHOULDER 2V AP/TRUE AP RTon 56-00-8813DQ SHOULDER 2V AP/TRUE AP RT* * *Final Report* * * DATE OF [...] MD on Jun 20 2018 2:04PM EST [id number] Valley HospitalNURSING PROGon 77-83-2973Knokhmb mass concHNO ID: [id number] Author: Ivana (Rn) FLETCHER Heller Service: Nursing [...] 11:10 AM Addendum 06/15/18 EKG IN [facility] FINAL Ivana Heller RN June 15, 2018 4:39 PMNormalEuclid HospitalType and SCR (30D)on 06-07-2018 ABO/RH(D)PositiveNormalEuclmd HospitalHOSPon 91-99-1018ABPRQxjfoeh:Carroll Fuentes MRN: Height:5' 2 (1.575 m) Weight:186 lb (84.369 kg) Outpatient Medications as of 06/20/18: calcium phosphate dibas/vit D3 (VITAMIN D, WITH CALCIUM, ORAL) docusate sodium (COLACE) 100 mg capsule aspirin, enteric coated (ECOTRIN LOW STRENGTH) 81 mg EC tablet oxyCODONE-acetaminophen (PERCOCET) 5-325 mg tablet rizatriptan (MAXALT OIL GAS AND PIPE TESTER) 10 mg disintegrating tablet mupirocin (BACTROBAN) 2 [...] Progress Notes (RADIO CT SCAN [facility]): RT Lillian, Tech 06/07/2018 10:04 AM [...] BY: RT Lillian June 07, 2018 9:54 [facility] Vital Signs Date TimeVital SignValuePerforming IeormaiwlUnbwjvah80-04-5673 11:48-0400Body psfqym780.94 cmBenjamin Ball DO Work Phone: [facility]10-01-2025 11:48-0400 Body mass index (BMI) [Ratio]31.8 kg/q5Eaygdkja Ball DO Work Phone: [facility]10-01-2025 11:48-[address]37 kgBenguthrie towanda [facility] NetHooks DO Work Phone: [facility]10-01-2025 11:48-0400 Diastolic blood urzbvuox62 mm[Hg]Robert Ball DO Work Phone: [phone] [place], [place] 9803010-01-2025 11:48-0400 Heart rate68 /minBenjamin Ball DO Work Phone: 1(322)[address] [place], [place] 4450710-01-2025 11:48-0400 Respiratory rate12 /minBenjamin Ball DO Work Phone: 1(413)[address] [place], [place] 4450710-01-2025 11:48-0400 Systolic blood mm[Hg]Robert Ball DO Work Phone: [phone]08-06-2025 13:37-0400 Body movdjg387.94 cmBenjamin Ball DO Work Phone: 1(165)[address] [place], [place] 4450708-06-2025 13:37-0400 Body mass index (BMI) [Ratio]31.8 kg/d3Ecphhjmf Ball DO Work Phone: 1(679)[address] [place], [place] 4450708-06-2025 13:37-0400 Body arinfw90.43 kgBenjamin Ball DO Work Phone: 1(879)[address] [place], [place] 4450708-06-2025 13:37-0400 Diastolic blood pyyaaunv60 mm[Hg]Robert Ball DO Work Phone: 1(329)[address] [place], [place] 4450708-06-2025 13:37-0400 Heart rate77 /minBenjamin Ball DO Work Phone: 1(894)[address] [place], [place] 4450708-06-2025 13:37-0400 Respiratory rate12 /minBenjamin Ball DO Work Phone: 1(610)[address] [place], [place] 4450708-06-2025 13:37-0400 Systolic blood blhxuxrq207 mm[Hg]Robert Ball DO Work Phone: 1(248)[address] [place], [place] 4450706-19-2025 10:42-0400 Body klaioy329.94 cmBenjamin Ball DO Work Phone: 1(458)[address] [place], [place] 4450706-19-2025 10:42-0400 Body mass index (BMI) [Ratio]31.8 kg/t8Cbtevreb Ball DO Work Phone: 1(419)[address] [place], [place] 4450706-19-2025 10:42-0400 Body vwwfow44.31 kgBenjamin Ball DO Work Phone: 1(419)[address] [place], [place] 4450706-19-2025 10:42-0400 Diastolic blood mm[Hg]Robert Ball DO Work Phone: 1(419)[address] [place], [place] 4450706-19-2025 10:42-0400 Heart rate66 /minBenjamin Ball DO Work Phone: 1(419)[address] [place], [place] 4450706-19-2025 10:42-0400 Respiratory rate12 /minBenjamin Ball DO Work Phone: 1419)[address] [place], [place] 4450706-19-2025 10:42-0400 Systolic blood wyzuakyh068 mm[Hg]Robert Ball DO Work Phone: 1419)[address] [place], [place] 4450705-21-2025 15:22-0400 Body qqbqot510.94 cmBenjamin Ball DO Work Phone: 1(419)[address] [place], [place] 4450705-21-2025 15:22-0400 Body mass index (BMI) [Ratio]32.3 kg/x2Zrnrqewh Ball DO Work Phone: 1(419)[address] [place], [place] 4450705-21-2025 15:22-0400 Body zmtidx49.79 kgBenjamin Ball DO Work Phone: 1419)[address] [place], [place] 4450705-21-2025 15:22-0400 Diastolic blood rksvoyvn48 mm[Hg]Robert Ball DO Work Phone: 1(419)[facility] [place], [place] 9803005-21-2025 15:22-0400 Heart rate69 /minBenjamin Ball DO Work Phone: [phone])[facility] [place], [place] 9803005-21-2025 15:22-0400 Respiratory rate12 /minBenjamin Ball DO Work Phone: [phone] [place], [place] 4450705-21-2025 15:22-0400 Systolic blood hosdorrk112 mm[Hg]Robert Ball DO Work Phone: [facility]04-02-2025 09:00-0400 Diastolic blood ozobkydf22 mm[Hg][facility]04-02-2025 09:00-0400Heart rate66 /[facility]04-02-2025 09:00-0400Respiratory rate12 /[facility]04-02-2025 09:00-0400Systolic blood mm[Hg][facility] 07-18-2024 10:47-0400Body .94 cm[facility] 07-18-2024 10:47-0400Body mass index (BMI) [Ratio]32.8 kg/w3NvczywunrOhiohealth [facility]ide [facility] Hospital03-26-2025 10:47-0400Body .95 kgOhio[facility]03-26-2025 10:47-0400Diastolic blood acsqplml27 mm[Hg][facility]03-26-2025 10:47-0400Heart rate68 /[facility]03-26-2025 10:47-0400Respiratory rate12 /[facility]03-26-2025 10:47-0400Systolic blood njrvvgow224 mm[Hg][facility]03-21-2025 10:11-0400Body pbwazq100.94 cmOhio[facility]03-21-2025 10:11-0400Body mass index (BMI) [Ratio]32.9 kg/m2 [facility]03-21-2025 10:11-0400Body mkvyyp63.01 kg [facility]03-21-2025 10:11-0400Diastolic blood mm[Hg][facility]03-21-2025 10:11-0400Heart rate65 /min [facility]03-21-2025 10:11-0400Respiratory rate12 /min [facility]03-21-2025 10:11-0400Systolic blood xtgdwotw487 mm[Hg][facility]03-19-2025 08:30-0400Body temperature 98.6 [degF]Oluremi Kole MD Work Phone: [phone] [employer] [facility] NorthBuyerMLS Pfpgkc27-78-0319 08:30-0400Diastolic blood mm[Hg]Jose Sharif MD Work Phone: [employer] Ezhlaz85-13-2753 08:30-0400Heart rate88 /Deneen Sharif MD Work Phone: [employer] [facility] NorthBuyerMLS Swibxg19-37-9027 08:30-0400 Respiratory rate16 /Deneen Sharif MD Work Phone: [phone] [employer] [facility] NorthBuyerMLS Xcmnbg29-75-6065 08:30-5263MmL8% (BldA) [Mass fraction]98 %Jose Sharif MD Work Phone: [phone] [employer] [facility] NorthBuyerMLS Cattwz19-81-2158 08:30-0400Systolic blood xbidansm285 mm[Hg]Jose Sharif MD Work Phone: Bon [employer] [facility] NorthBuyerMLS Nzqwmt41-23-9714 20:16-0400Body zqujro712.9 cmJose Sharif MD Work Phone: [employer] [facility] NorthBuyerMLS Cskbye54-35-2735 20:16-0400Body mass index (BMI) [Ratio]33.07 kg/v9OunrldfJose Sharif MD Work Phone: [employer] [facility] NorthBuyerMLS Jkpjiv72-38-9155 20:16-0400Body xuxcms16.38 kgJose Sharif MD Work Phone: Bon [employer] [facility]Qvxgjk70-[facility]-5349 15:04-0400Body wrnxfo072.94 cmOhio[facility]03-12-2025 15:04-0400Body mass index (BMI) [Ratio]32.9 kg/t0XfiewanicOhiohealth Riverside [facility] Hospital03-12-2025 15:04-0400Body .06 kgOhio[facility]03-12-2025 15:04-0400Diastolic blood hqsvipuk39 mm[Hg][facility] 07-04-2024 15:04-0400Heart rate69 /[facility] 07-04-2024 15:04-0400Respiratory rate12 /[facility] 07-04-2024 15:04-0400Systolic blood xmzohjwr849 mm[Hg][facility]03-03-2025 10:11-0500Body vralgislogj67.3 [degF][facility]03-03-2025 10:11-0500Diastolic blood ltsazcsg10 mm[Hg][facility]03-03-2025 10:11-0500Heart rate54 /[facility]03-03-2025 10:11-0500Respiratory rate16 /[facility]03-03-2025 10:11-9734XlM5% (BldA) [Mass fraction]98 %[facility]03-03-2025 10:11-0500Systolic blood kbskgaaz808 mm[Hg] [facility]03-03-2025 10:07-0500Body ybsmhz714.94 cm [facility]03-03-2025 10:07-0500Body mass index (BMI) [Ratio]32.9 kg/l4FnjoxyirgOhiohealth Riverside Methodist Hospital03-03-2025 10:07-0500Body iwvies16.15 [facility]11-01-2024 14:13-0400Body height 154.94 cmOhio[facility]11-01-2024 14:13-0400Body mass index (BMI) [Ratio]33.1 kg/q9SzehdvmngOhiohealth Riverside [facility] Hospital11-01-2024 14:13-0400 Body ojvuqskjnqh80 [degF][facility]11-01-2024 14:13-0400 Body qdbbee48.6 kgOhiohealth [facility]ide [facility]11-01-2024 14:13-0400 Diastolic blood mughwest29 mm[Hg][facility]11-01-2024 14:13-0400Heart rate66 /[facility]11-01-2024 14:13-0400Systolic blood befgimtu437 mm[Hg][facility] 12-20-2023 15:35-0400Body oyvefb044.94 cmOhio[facility] 12-20-2023 15:35-0400Body mass index (BMI) [Ratio]33.8 kg/k3BsmubxmuaOhiohealth Riverside Methodist Hospital08-27-2024 15:35-0400Body rxjiya66.19 kgOhio[facility]08-27-2024 15:35-0400Diastolic blood jfoebpue87 mm[Hg][facility]08-27-2024 15:35-0400Heart rate78 /[facility]08-27-2024 15:35-0400Respiratory rate12 /[facility]08-27-2024 15:35-0400Systolic blood ypwmugbo516 mm[Hg][facility]01-05-2024 09:00-0500Body zautki601.94 cmBenjamin Ball Other [employer] Other 01-05-2024 09:00-0500Body mass index (BMI) [Ratio] 33.14 kg/d3Fsxfayiy Ball Other [employer] Other 01-05-2024 09:00-0500Body xhcwyf20.56 kgBenjamin Ball Other [employer] Other 01-05-2024 09:00-0500Diastolic blood tiwajuvv77 mm[Hg] Robert Ball Other [employer] Other 01-05-2024 09:00-0500Respiratory rate12 /minBenjamin Ball Other [employer] Other 01-05-2024 09:00-0500Systolic blood khnylloy880 mm[Hg] Robert Ball Other [employer] Other 08-28-2023 13:45-0400Body fwtqqy051.94 cmBenjamin Ball Other [employer] Other 08-28-2023 13:45-0400Body mass index (BMI) [Ratio] 34.12 kg/u7Dsczfyjw Ball Other [employer] Other 08-28-2023 13:45-0400Body aqwyjg93.92 kgBenjamin Ball Other [employer] Other 08-28-2023 13:45-0400Diastolic blood mm[Hg] Robert Ball Other [employer] Other 08-28-2023 13:45-0400Respiratory rate12 /minBenjamin Ball Other [employer] Other 08-28-2023 13:45-0400Systolic blood ywztvqfe969 mm[Hg] Robert Ball Other [employer] Other 04-12-2023 09:45-0400Body iedybh962.94 cmBenjamin Ball Other [employer] Other 04-12-2023 09:45-0400Body mass index (BMI) [Ratio] 33.33 kg/h0Tqgppzgr Ball Other [employer] Other 04-12-2023 09:45-0400Body xdbhto12.02 kgBenjamin Ball Other [employer] Other 04-12-2023 09:45-0400Diastolic blood qonjymqo14 mm[Hg] Robert Ball Other [employer] Other 04-12-2023 09:45-0400Respiratory rate12 /minBenjamin Ball Other [facility] Other 04-12-2023 09:45-0400Systolic blood rldwfowy055 mm[Hg] Robert Villasenor Other [facility] [employer] Other Encounters Encounter DateEncounter TypeCare ProviderFacilityStart: 02-13-2025 End: 83-89-3577Vcpqghh encounter procedureBenjamin Ball DO-[facility] Work Phone: Start: 02-13-2025 End: 88-45-6296sjrvgwnpjcFayeelnc Ball DO Work Phone: [phone]-Zhxnuk for Breast [facility] HealthStart: 02-11-2025 End: 02-06-4353totbmnnsfaZosznpf Vytautas Heriitis Facility:[facility] Start: 60-69-0173Wkb-patient / Non-visitSmario Meehan MD-[facility] Work Phone: Start: 01-28-2025 End: 29-14-1046kbmpapxeyyCdvxwvc Vytautas Anderson MDFacility:[facility] Start: 01-23-2025 End: 13-36-4277gytiturhvcPuauksbq Ball DO Work Phone: [facility] Work Phone: Start: 01-23-2025 End: 22-95-9252Bejresu encounter procedureBenjamin Ball DO-[facility] Work Phone: Start: 11-28-2024 End: 82-44-5835qqtpjyfcilZfdyafud Ball DO Work Phone: [facility] Work Phone: Start: 11-28-2024 End: 51-17-1958Amvrewx encounter procedureBenjamin Ball DO-[facility] Work Phone: Start: 11-23-2024 End: 16-36-4975fszjuphtkoEOSPKIYLTriHealth Good Samaritan Hospitaltart: 11-23-2024 End: 03-39-5648Bmmkcgjptn hospital visit by physicianTomás Helton DO Work Phone: [facility] MRIComment on above: Osteoarthritis of right knee, unspecified osteoarthritis typeStart: 10-13-2024 Non-patient / Non-visitBenjeremy Villasenor DO-[facility] Work Phone: Start: 10-11-2024 End: 02-55-9716Pbghlnw encounter procedureBenjeremy Villasenor DO-[facility] Work Phone: Start: 10-11-2024 End: 64-35-1903Pbnwmzy encounter statusHu Hu Kam Memorial Hospitalmerry Villasenor [facility] Hospitaltart: 71-46-1385Hgu-patient / Non-visitBenjeremy Villasenor -[facility] Work Phone: Start: 55-94-7978Fgf-patient / Non-visitBenjeremy Villasenor DO-[facility] Work Phone: Start: 09-12-2024 End: 66-88-2612Eojqrmg encounter procedureBenjeremy Villasenor DO-[facility] Work Phone: Start: 07-25-2024 End: 96-42-6412khjpfmtrilKfrqdlqivKettering Health [facility]ble Work Phone: Start: 07-25-2024 End: 65-58-6278Oaedvvl encounter procedureFirriverside t[facility] Work Phone: Start: 07-18-2024 End: 46-39-7015kahlaoqpasJigutatuvKettering Health Preble Work Phone: Start: 07-18-2024 End: 25-15-6697Fwavigd encounter procedureFirwilliamsports Physician Group-[facility] Work Phone: Start: 39-82-6332Kjs-patient / Non-visitAt[facility] Work Phone: Start: 07-13-2024 End: 34-45-0772xjpgogxyboTbmduqrvdKettering Health Preble Work Phone: Start: 07-13-2024 End: 02-96-3420Nuibplu encounter procedureAt[facility] Work Phone: Start: 63-24-4330Eqb-patient / Non-visitAt[facility] Health [facility] Work Phone: Start: 50-97-4441Spa-patient / [facility]Blue [facility] Work Phone: Start: 07-06-2024 End: 36-96-8948Hgdswcvbmu and management of inpatientOluremi Renea Sharif MD Work Phone: [facility] 7KStart: 07-04-2024 End: 30-44-2604rmryyfawunGnnoqbknqKettering Health Preble Work Phone: Start: 07-04-2024 End: 39-21-8941Mrdwqibhi for other preprocedural examinationMarymount Hospitaltart: 07-04-2024 End: 91-12-7948Nnrfmjf encounter procedureAtrium Health [facility] Work Phone: Start: 89-54-0461Obe-patient / Non-visitAt[facility] Health [facility] Work Phone: Start: 06-25-2024 End: 07-77-0761orruqvttnqAftfibwptKettering Health Preble Work Phone: Start: 06-25-2024 End: 28-65-3458Cohntis encounter procedureAt[facility] Health [facility] Work Phone: Start: 33-41-6231vwzzckyitrCwtx T AMES Facility:[facility]Start: 08-16-7680Fnv-patient / Non-visitAt[facility] Health [facility] Work Phone: Start: 67-44-7665Xle-patient / Non-visitFirelands [facility]ician [facility] Work Phone: Start: 04-09-2024 End: 42-40-8848memjhnxtnrUxzahhiMali Barron MDFacility:BRIEN Pereira Start: 02-24-2024 End: 17-06-5558noclhfjvohCklbcgwhcEast [facility] Work Phone: Start: 02-24-2024 End: 48-41-6524Gtfpcmy encounter procedureAtrium Health [facility] Work Phone: Start: 22-96-3804Itv-patient / Non-visitAt[facility] Health [facility] Work Phone: Start: 22-65-6899Eop-patient / Non-visitAtrium Health [facility] Work Phone: Start: 67-47-3623Xbyicgg encounter [facility]: 12-20-2023 End: 15-44-4981cyppyparjcFubybtltvKettering Health Preble Work Phone: Start: 12-20-2023 End: 38-04-2084Gdhhfkz encounter procedureAtrium Health [facility] Work Phone: Start: 06-01-2023 End: 04-15-1799wlusiisdfgHgmisezc Ball Other [employer] Other Start: 35-19-8284Htdwcxphe encounterBenjamin BallFPG [facility] ClinicStart: 05-13-2023 End: 29-71-0868ufhrepjtjbUywjiorp Ball Other [employer] Other Start: 56-39-2541Bivwkxbbn encounterBenjamin BallFPG Ball [facility] ClinicStart: 05-09-2023 End: 58-21-6470iqgcnkjzqzNlcgvrxp Ball Other [employer] Other Start: 54-12-7248Adsjpkhvj encounterBenjamin BallFP[facility] ClinicStart: 05-04-2023 End: 76-22-8544jhwsyuhytgBoomlafk Ball Other [employer] Other Start: 54-15-7896Mofxkqcif encounterBenjamin BallFP[facility] ClinicStart: 05-02-2023 End: 44-05-5407wwxqxcumgtOrboawlo Ball Other [facility] [employer] Other Start: 93-32-3590Qsyqdhkln encounterBenjamin BallFP[facility] ClinicStart: 04-29-2023 End: 45-72-9354yvnfweiwzmOznrwzcv Ball Other [facility] [employer] Other Start: 09-07-0108Gbxlad outpatient visit 15 minutes Robert BallFP[facility] ClinicStart: 04-04-2023 End: 68-41-5477ofcobtwxmhWkvtqtir Ball Other [facility] [employer] Other Start: 47-12-9874Wacifdehc encounterBenjamin BallFP[facility] ClinicStart: 01-24-2023 End: 72-55-9928zltsojjbciGfdzqbrw Ball Other [facility] [employer] Other Start: 96-17-8507Zvrtthlcm encounterBenjamin BallFP[facility] ClinicStart: 12-23-2022 End: 87-34-6866kygexnfzsiCanwanrg Ball Other [employer] Other Start: 80-79-2389Prkumclkl encounterBenjamin BallFP[facility] ClinicStart: 12-20-2022 End: 42-50-0510gfotlytevyNflrkdgj Ball Other [employer] Other Start: 86-89-2323Kjxxmm outpatient visit 15 minutes Robert BallFP[facility] ClinicStart: 12-17-2022 End: 33-92-7816jlemfyldyjInoigchw Ball Other [employer] Other Start: 42-67-6527Ujztuvyeu encounterBenjamin BallFP[facility] ClinicStart: 11-08-2022 End: 23-00-6166veanxvtbehJkhmwufd Ball Other [employer] Other Start: 15-86-2227Mxydtnyod encounterBenjamin BallFP[facility] ClinicStart: 10-22-2022 End: 53-43-8428gwhdfktsukTwsqyqgf Ball Other [employer] Other Start: 51-56-8727Pvrepauuw encounterBenjamin BallFP[facility] ClinicStart: 10-13-2022 End: 64-21-8697lgpcbyochaCbbdckkh Ball Other [employer] Other Start: 92-29-8660Vearlqkdr encounterBenjamin BallFP[facility] ClinicStart: 09-27-2022 End: 24-10-3854umbaewxrfvCkpnakhy Ball Other [employer] Other Start: 26-18-3071Aczjmnsyl encounterBenjamin BallFP[facility] ClinicStart: 08-23-2022 End: 68-88-5281wgsnuydlaaOK RISHI STEPANICFacility:X9Bnidv: 08-04-2022 End: 71-37-0923vmryzcnzybXadqqvrr Ball Other [employer] Other Start: 20-26-9328Iftmzo outpatient visit 25 minutes Robert BallFP[facility] ClinicStart: 79-67-0338Qhtihfnfa for general adult medical examination without abnormal findings ROBERT VILLASENORMarietta Osteopathic Clinic HospitalStart: 03-30-2022 End: 49-69-1275lzfjzmcuhaEY BENJAMIN BALLFacility:O9Gyitn: 03-30-2022 End: 50-97-2208Gtpdqlfcn for general adult medical examination without abnormal findingsDR ROBERT VILLASENORFacility:T6Unwdw: 03-19-2022 End: 85-21-7988cdiwcviimlIU BENJAMIN BALLFacility:J0Sxaea: 02-18-2022 End: 92-07-5396gevxgjhffpVU YAIR WELLS .Facility:T7Ptbjb: 11-27-2021 End: 10-01-2376lincudratuQL ROBERT VILLASENORcility:Q2Tnbmy: 10-28-2021 End: 76-10-4180aenjfpysggRT ROBERT VILLASENORcility:R5Ictdr: 09-10-2021 End: 99-78-7949jawksjrarbVV ROBERT VILLASENORcility:S9Woczw: 07-03-2018 End: 74-05-7078Hcgpngq [facility]Co[facility] Start: 06-20-2018 End: 62-23-2228Mkxovrythb and management of [facility] Procedures DateProcedureProcedure DetailPerforming ClinicianStart: 30-60-0198Kunqegelu mammographyBenjamin Hamilton DO Work Phone: Start: 62-67-4746Uykyirkvcoyqchm of left breast Robert Villasenor DO Work Phone: Start: 94-73-0523Koqbk gap [Moles/Vol]Dank Diglio PA Work Phone: Start: 07-11-2024 End: 83-13-4897Xmlnf metabolic panel calcium totalAlexis Diglio PA Work Phone: Start: 58-98-8862SODPHSHHZH FILTRATION RATE, ESTIMATED Dank Diglio PA Work Phone: Start: 77-42-5502Qdcc bld gluc mntr dev cleared fda spec home useAlexis Diglio PA Work Phone: Start: 36-23-2838Nteg bld gluc mntr dev cleared fda spec home useAlexis Diglio PA Work Phone: Start: 67-36-3952Nmik bld gluc mntr dev cleared fda spec home useAlexis Diglio PA Work Phone: Start: 34-71-9585Tqpkn gap [Moles/Vol]Dank Diglio PA Work Phone: Start: 07-10-2024 End: 65-69-3280Qyveu metabolic panel calcium totalAlexis Diglio PA Work Phone: Start: 28-25-1144GGZWTPPWTU FILTRATION RATE, ESTIMATED Dank Diglio PA Work Phone: Start: 72-88-1055Lgkm bld gluc mntr dev cleared fda spec home useAlexis Diglio PA Work Phone: Start: 95-27-9028Vdhl bld gluc mntr dev cleared fda spec home useAlexis Diglio PA Work Phone: Start: 57-66-6472Qsiy bld gluc mntr dev cleared fda spec home useAlexis Diglio PA Work Phone: Start: 47-58-9133Hvcryuhlp serum plasma/whole blood Jose Sharif MD Work Phone: Start: 21-36-6371Agkkz gap [Moles/Vol]Dank Diglio PA Work Phone: Start: 07-09-2024 End: 22-00-6907Ccguf metabolic panel calcium totalAlexis Diglio PA Work Phone: Start: 63-68-3354RGSPHJARTH FILTRATION RATE, ESTIMATED Dank Diglio PA Work Phone: Start: 61-94-8811Rfan bld gluc mntr dev cleared fda spec home useAlexis Diglio PA Work Phone: Start: 37-74-0728Qcmfr spine 1 view specify level Eloise Veliz MD Work Phone: Start: 55-30-3723Jwsff spine 1 view specify level Eloise Veliz MD Work Phone: Start: 07-08-2024 End: 13-76-6626ZDXQXL LAMINECTOMY DECOMPRESSION POSTERIORSelvon Stephen Veliz MD Work Phone: Start: 49-70-7509Xdef bld gluc mntr dev cleared fda spec home useAlexis Diglio PA Work Phone: Start: 32-91-8771Ybmk bld gluc mntr dev cleared fda spec home useAlexis Diglio PA Work Phone: Start: 68-59-6400Vcof bld gluc mntr dev cleared fda spec home useAlexis Diglio PA Work Phone: Start: 91-59-7380Vano bld gluc mntr dev cleared fda spec home useAlexis Diglio PA Work Phone: Start: 53-39-7367Bgoz bld gluc mntr dev cleared fda spec home useAlexis Diglio PA Work Phone: Start: 63-92-1131Yymjx gap [Moles/Vol]Jose Sharif MD Work Phone: Start: 07-07-2024 End: 99-66-3609Dlmbw metabolic panel calcium totalOlfransico Sharif MD Work Phone: Start: 60-41-8724TFICLEDISX FILTRATION RATE, ESTIMATED Jose Sharif MD Work Phone: Start: 60-06-2192Emmr bld gluc mntr dev cleared fda spec home useAlexis Diglio PA Work Phone: Start: 88-06-7421Hcfpfbsjit exam chest 2 viewsOlfransico Sharif MD Work Phone: Start: 94-64-4817Tfvgt gap [Moles/Vol]Jose Sharif MD Work Phone: Start: 80-81-3441MSOSHMASXZ FILTRATION RATE, ESTIMATED Jose Sharif MD Work Phone: Start: 31-61-0423Klo routine ecg w/least 12 lds trcg only w/o i&rOlfransico Sharif MD Work Phone: Start: 07-06-2024 End: 19-87-2460Jjkg bld gluc mntr dev cleared fda spec home useJose Sharif MD Work Phone: Start: 14-72-8923Jbwytzou screenERIC SUN Plan of Treatment DateCare ActivityDetailAuthorStart: 29-09-5664Sxjzjgyxdvj Syncytial Virus (RSV) or age 60 yrs+ (1 - 1-dose 75+ series)Respiratory Syncytial Virus (RSV) or age 60 yrs+ (1 - 1-dose 75+ series)[facility] HospitalEnfora [facility]: 08-26-1738NCS test (Diabetes, CKD 3-4, OR last GFR 15-59)GFR test (Diabetes, CKD 3-4, OR last GFR 15-59)[facility] HospitalEleutian TechnologyLicking [facility]: 10-89-7662Ddommhxmv vaccinationFlu vaccine (#1)[facility]: 31-55-1453Ybnfhx Wellness Visit (Medicare Advantage)Annual Wellness Visit (Medicare Advantage)[facility]: 63-39-2745ISLCR-19 Vaccine ( season) COVID-19 Vaccine ( season)[facility]: 2014 Screening for osteoporosisDEXA (modify frequency per FRAX score)[facility]: 37-78-4345Dzahdmopcrld 50+ years Vaccine (1 of 1 - PCV) Pneumococcal 50+ years Vaccine (1 of 1 - PCV)[facility]: 05-30-2670Alsnzlpi vaccine (1 of 2)Shingles vaccine (1 of 2)Bon [facility]: 67-81-6448Kxckivfxs for malignant neoplasm of colonM[facility]: 40-57-3199Nawqwjtby for malignant neoplasm of breastBreast cancer screenCarilion Tazewell Community Hospitalart: 07-02-2279Pnwfvpeb screenDiabetes screenCarilion Tazewell Community Hospitalart: 63-52-4217Krxcwwfik for malignant neoplasm of cervixCarilion Tazewell Community Hospitalart: 65-05-1686Mtphovrzp for malignant neoplasm of cervixPap smearCarilion Tazewell Community Hospitalart: 49-07-4439JBuK/Tdap/Td vaccine (1 - Tdap)DTaP/Tdap/Td vaccine (1 - Tdap)[facility] Hospitalart: 78-77-7719Cexyftclimun 50+ years Vaccine (1 of 2 - PCV)Pneumococcal 50+ years Vaccine (1 of 2 - PCV)[facility]: 82-12-4646Fnqgvgje screeningDiabetic retinal examCarilion Tazewell Community Hospitalart: 58-89-8124Nlghpfnlg C screeningHepatitis C [facility]art: 48-44-3416Lxzdz screening for proteinDiabetic Alb to Cr ratio (uACR) testCarilion Tazewell Community Hospitalart: 13-18-9618BKI screeningHIV [facility]art: 12-29-0765Nczwjdrfwb ScreenDepression ScreenCarilion Tazewell Community Hospitalart: 80-92-4366Xtibbwvj foot examinationDiabetic foot examBon Secours Health System Start: 20-82-4282Jvxupupppm A1c wktwudwzlcuG4S test (Diabetic or Prediabetic)[facility] Hospitalart: 55-77-5414Hawmi panelLipidsBon Secours Health System End: 45-37-0619Ykkor metabolic 1999 panel - Serum or PlasmaBasic Metabolic Panel Lab Routine Daily for 1 Weeks starting 07/09/2024 until 07/15/2024, 3 completed [facility] SystemComment on above:Daily for 1 Weeks starting 07/09/2024 until 07/15/2024, 3 completedComprehensive metabolic 1999 panel - Serum or PlasmaOhiohealth Riverside Methodist HospitalComprehensive metabolic 2000 panel - Serum or [facility] DublinComprehensive metabolic 1999 panel - Serum or PlasmaOhiohealth Riverside Methodist HospitalGlucose [Mass/volume] in Serum or PlasmaPOCT Glucose Point of Care Testing STAT As Needed until discontinued starting 07/06/2024on [employer] on above:As Needed until discontinued starting 07/06/2024Glucose [Mass/volume] in Serum or PlasmaPOCT glucose Point of Care Testing Routine 4X Daily (AC & HS) until discontinued starting 07/07/2024, 18 completedBon AttorneyFeePerry County Memorial Hospital on above:4X Daily (AC & HS) until discontinued starting 07/07/2024, 18 completed Glucose [Mass/volume] in Serum or PlasmaPOCT Glucose Point of Care Testing STAT As Needed until discontinued starting 07/10/2024on [employer] on above:As Needed until discontinued starting 07/10/2024 End: 21-73-2368Jhmmkcggxm and HematocritHemoglobin and Hematocrit Lab Routine Daily for 1 Weeks starting 07/09/2024 until 07/15/2024, 3 completedBon AttorneyFeePerry County Memorial Hospital on above:Daily for 1 Weeks starting 07/09/2024 until 07/15/2024, 3 completedMG Breast - bilateral [facility] HospitalMG Breast - bilateral [facility] End: 96-44-6054XZ Knee - right WO contrastAbrazo Scottsdale Campus AttorneyFeePerry County Memorial Hospital on above:1 Occurrences starting 11/23/2024 until 11/23/2024MR Knee - right WO [facility] CenterOxygen therapy [Minimum Data Set] Initiate Oxygen Therapy Protocol Respiratory Care Routine As Needed until discontinued starting 07/08/2024 AttorneyFeePerry County Memorial Hospital on above:As Needed until discontinued starting 07/08/2024Patient EducationLow back pain in adultsSelect Medical [facility] Work Phone: Spirometry panelIncentive spirometry Respiratory Care Routine Every 2hr while awake until discontinued starting 07/06/2024 AttorneyFee Work Phone: Comment on above:Every 2hr while awake until discontinued starting 07/06/2024Spirometry panelIncentive spirometry Respiratory Care Routine Every 2hr while awake until discontinued starting 07/08/2024[facility] above:Every 2hr while awake until discontinued starting 07/08/2024[facility] CenterUS [facility] - [facility] limitedSen[facility] Payers DatePayer CategoryPayerPolicy [id number] 2025Medicare2024Unknown 09-35-3185Tmwd [facility] [id number] 2.16840.3.947791.5894-01-2020 [id number] [id number] 2.840.1.143751.3.57[id number] 2.840.1.415209.3.57[id number] 2.840.1.377258.3.57[id number] 2.840.1.897677.3.57[id number] 2.0.1.673707.3.57[id number] 2.16840.1.125342.3.57[id number] 2.16840.1.379554.3.57[id number] 2.16840.1.506374.3.5[id number] 2.16840.1.327410.3.57[id number] 2.16.840.1.224458.3.57[id number] 2..840.1.627966.3.57[id number] 2..840.1.37[id number] 2..840.1.840652.3.579.2.593 [id number] [id number] Social History DateTypeDetailFacilityStart: 70-89-1982Inf Assigned At [facility] [employer] Other Start: 49-25-1184Fvy Assigned At [facility] smoking status NHISUnknown if ever smoked [facility] Work Phone: Start: 06-04-2012 End: 26-32-5461SmzRtjodr (finding)[facility] Hospitaltart: 07-06-2024 End: 71-85-8761Cuepmru smoking status NHISNever smoked tobaccoBon Happy Days HealthStart: 80-30-4125Anvbjic use and exposureSmokeless tobacco non-userBon [facility] CenterStart: 23-26-4170Qafeuewrs beverage intakeLifetime non- drinker (finding)Bon AttorneyFeeStart: 56-93-6474Cufyttd of Social functionBon Happy Days HealthHas the [employer], gas, oil, or water company threatened to shut off services in your home in past 12MoNoBon [facility](I/We) worried whether (my/our) food would run out before (I/we) got money to buy more.Never trueBon Secours Health SystemIn the past 12 months, has lack of transportation kept you from medical appointments or from getting medications?No Bon [facility] HospitalStart: 04-60-8094Pyl assigned at birthNot on [facility] Medical Equipment Procedure CodeEquipment CodeEquipment Original TextEquipment IdentifierDates Screw Spnl L45mm Dia6.5mm Post Thoracolumbosacral Co Chrom - [id number]: 60-68-4790Bbyhq Spnl L40mm Dia6.5mm Post Thoracolumbosacral Co Chrom - [id number]: 68-23-2544Ast Scr Spnl L6mm Dia5.5mm Ti Brk Off Svetlana W/ Detach Cdh - [id number]: 83-51-9352Tcw Spnl L35mm Dia5.5mm Ant Post Thoracolumbosacral Ti - [id number]: 07-08-2024 Clinical Notes 08-04-2022 to 11-28-2024 Note Date & PpmiFvsaHtoikwic87-06-5580 Evaluation note* Diagnosis Onset Date Resolution Status Admit Date Acute meniscal tear of right knee acuteAugust 2024 1:29pmCentral stenosis of spinal canalacuteAugust 2024 1:29pmLateral cutaneous nerve of thigh syndromeacuteAugust 2024 1:29pm Leg painacuteAugust 2024 1:29pmBreast mass, leftacuteOctober 2024 11:33am [facility] Work Phone: 1(409) 452-691508-06-2025 Evaluation note* Diagnosis Onset Date Resolution Status Admit Date Acute meniscal tear of right knee acuteAugust 2024 1:29pmCentral stenosis of spinal canalacuteAugust 2024 1:29pmLateral cutaneous nerve of thigh syndromedeletedAugust 2024 1:29pmLeg paindeletedAugust 2024 1:29pmBreast mass, leftacuteOctober 2024 11:33amHypercholesterolemiaacuteOctober 2024 11:33amHypertensionacute January 23, 2025 11:33amHypothyroidacuteOctober 2024 11:33amLow back pain radiating to right legacuteOctober 2024 11:33amLumbar spondylosisacute January 23, 2025 11:33amMajor depressionacuteOctober 2024 11:33amOSA (obstructive sleep apnea)acuteOctober 2024 11:33amType 2 diabetes mellitus with hyperglycemiaacuteOctober 2024 11:33am [facility] Work Phone: 1([phone]) 675-222905-21-2025 Evaluation note* Diagnosis Onset Date Resolution Status Admit Date Acute blood loss anemia acuteMay 2024 3:13pmHypertensionacuteMay 2024 3:13pmKnee pain, right acuteMay 2024 3:13pmMass of left axillaacuteMay 2024 3:13pmPrerenal azotemiaacuteMay 2024 3:13pmType 2 diabetes mellitus with hyperglycemia acuteMay 2024 3:13pmHypercholesterolemiaacuteJune 2024 10:26am HypertensionacuteJune 2024 10:26amHypothyroidacuteJune 2024 10:26am Major depressionacuteJune 2024 10:26amOSA (obstructive sleep apnea)acute Brittany 2024 10:26amType 2 diabetes mellitus with hyperglycemiaacuteJune 2024 10:26amWelcome to Medicare preventive visitnoneactiveJune 2024 10:26am [facility] Work Phone: 1([phone]) 478-803903-19-2025 History of Present illness Narrative* Bhavani Anderson [...] Rosales, PT - 07/10/2024 10:18 AM EDT [facility] INPATIENT PHYSICAL THERAPY EVALUATION [facility] 7K - 7K-21/021-A Discharge [...] or urinary incontinence. 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 Business Excellence Manager Goals Time Frame for Business Excellence Manager Goals : NA due to short ELOS Following session, patient left in safe position with all fall risk precautions in place. Pt in bedfollowing session, all needs and call light in reach, alarm on. * America Waters OTA - 07/10/2024 8:30 AM EDT [facility] ORTHOPEDICS Occupational Therapy Daily Note Discharge Recommendations: Home with Home Health OT Equipment Recommendations: No Monitor need for LHAE. Time In: 0800 Time Out: 827 Timed Code Treatment Minutes: 28 Minutes Minutes: 28 Date: 07/10/2024 Patient Name: Carroll Fuentes, Gender: female Room: [facility]- : 1960 (64 y.o.) Referring Practitioner: Dank [...] or urinary incontinence. She was evaluated at [facility], she had an MRI of the lumbar [...] injury in the past year?: Yes Active Jacket Preparer: Yes Occupation: Retired SUBJECTIVE: Patient seated in bedside chair upon arrival; agreeable to therapy this date. Patient pleasant and cooperative throughout session. PAIN: 10/02: Vitals: Vitals not assessed per clinical judgement, see nursing flowsheet COGNITION: WFL ADL: Grooming: Modified Independent. Hair care seated in bedside chair Upper Extremity Dressing: Minimal Assistance. Carroll/doff house robe Lower Extremity Dressing: Minimal Assistance. With molasses and caramel operator in order to carroll/dointermountain healthcare shorts with verbal/visual cues to complete, demonstrating good understanding. Footwear Management: Supervision, X 1, with verbal cues , and with increased time for completion. Utilized molasses and caramel operator/sock aid in order to doff/carroll B socks [...] indep within home environment. Additional Goals?: No Business Excellence Manager Goals Time Frame for [facility] Goals : No LTGs d/t short estimated [...] Rosales, PT - 07/09/2024 2:49 PM EDT [facility] PHYSICAL THERAPY MISSED TREATMENT NOTE [facility] 7K Date: 07/09/2024 Patient Name: Carroll Fuentes : 1960 (64 y.o.) Gender: female REASON FOR MISSED TREATMENT: Missed Treat. Attempted x3 today. 1st attempt, pt with tech on BSC and then requesting to eat breakfast. 2nd attempt, OT with pt. 3rd attempt, case preparer and liner in room to complete assessment. * Angela Dawkins OT - 07/09/2024 1:44 PM EDT [facility] INPATIENT OCCUPATIONAL THERAPY [facility] 7K EVALUATION Discharge Recommendations: [...] or urinary incontinence. She was evaluated at [facility], she had an MRI of the lumbar [...] injury in the past year?: Yes Active Jacket Preparer: Yes Occupation: Retired VISION:Corrected HEARING: WFL COGNITION: [...] Inpatient Daily Activity Raw Score: 17 Modified [place]: Premorbid Functional Status: Not Applicable Current Functional [...] indep within home environment. Additional Goals?: No Business Excellence Manager Goals Time Frame for [facility] Goals : No LTGs d/t short estimated length of stay. AM-[facility] Inpatient Daily Activity Raw Score: 17 AM-[facility] Inpatient ADL T-Scale Score : 37.26 Following session, patient left in safe position with all fall risk precautions in place. * Irma Villagomez RN - 07/09/2024 10:32 AM EDT Order for back brace and face sheet faxed to [facility]. * Berny Lewis PA-C - 07/09/2024 6:57 AM EDT Department [...] pain 6/10 at this time, medicated by LABOR RELATIONS SPECIALIST 1840 pt resting, resp easy. VSS 1850 pt awakens to voice, states pain 5/10 and tolerable. VSS 0 c/o pain 7/10, medicated with 50 mcg fentanyl 1904 no change in pain status, medicated with 50 mcg fentanyl 0 pt resting, resp easy. VSS 1914 pt resting, resp easy. VSS 1924 pt meets criteria for discharge from pacu at this time. Pt transported to [facility] in stable condition * Kusum Conte [...] EDT Spiritual Health History and Assessment/Progress Note [facility] (P) Initial Encounter, , , Name: Carroll Fuentes Age: 64 y.o. Sex: female Language: Hebrew Mosque: Yazdanism Intractable back pain Date: 07/07/2024 Total Time Calculated: (P) 14 min Spiritual Assessment began in [facility] 7K Referral/Consult From: (P) [...] and how she loves everything about the bahai. Patient finds peace and hope in her liliane as a taoist and desires to have sacrament of the sick by a baker laboratory, before her surgery tomorrow afternoon. I told the patient that I will let the spiritual care team know. Offered patient words of encouragement, quoted Scripture, and prayed with the patient, at her request. Patient expressed gratitude. Made patient aware of steam cleaner availability and support. Patient Interventions include: Facilitated expression of thoughts and feelings, Explored spiritual coping/struggle/distress, Affirmed coping skills/support systems, and Provided sacramental/religiousritual Family/Friends Interventions include: No family/friends present Patient Plan of Care: Contact Liliane marketing community liaison for support or sacramental needs Family/Friends Plan of Care: No family/friends present documented in this encounterBon [facility]03-19-[facility] Hospital Discharge instructions* Discharge Instructions* Bhavani [...] All vegetables, especially asparagus, pru[place] sprouts, broccoli, [place] sprouts, cabbage, carrots, cauliflower, celery, corn, greens, [...] taking more than one drug. This includes mium-rul-zxlfpsf medication and herb or dietary supplements. Plan [...] possible side effects documented in this encounterBon Secours Health System03-16-2025 NotePROCEDURE: XR LUMBAR SPINE 1 VW CLINICAL [...] body height is seen. [facility] [id number] NotePROCEDURE: XR LUMBAR SPINE 1 VW CLINICAL [...] Signed by: Sivakumar Betts MD 07/08/24 Final resultSaint [facility]id[facility]03-[facility] Evaluation note* Diagnosis Onset Date Resolution Status Admit Date Cervical spondylosis acuteMarch 2024 10:04amHypertensionacuteMarch 2024 10:04amHx of fusion of cervical spineresolvedMarch 2024 10:04amCervical paindeletedMarch 2024 10:04amHypercholesterolemiaacuteMarch 2024 2:57pmHypertensionacute July 04, 2024 2:57pmHypothyroidacuteJunch 2024 2:57pmOSA (obstructive sleep apnea)acuteJuly 04, 2024 2:57pmType 2 diabetes mellitus with hyperglycemiaacuteJunch 2024 2:57pmPreop exam for internal medicine noneactiveJunch 2024 2:57pm [facility] Work Phone: 1(174) 997-526303-03-2025 Evaluation note* Diagnosis Onset Date Resolution Status Admit Date Cervical spondylosis acuteMarch 2024 10:04amHypertensionacuteMarch 2024 10:04amHx of fusion of cervical spineresolvedMarch 2024 10:04amCervical paindeletedMarch 2024 10:04amCentral stenosis of spinal canalacuteMarch 2024 2:57pm Herniated intervertebral disc of lumbar spineacuteJunch 2024 2:57pm HypertensionacuteJunch 2024 2:57pmPrimary osteoarthritis, right shoulder acuteMarch 2024 2:57pmType 2 diabetes mellitus with hyperglycemiaacute July 04, 2024 2:57pm [facility] Work Phone: 1([phone]) 199-946703-03-2025 Evaluation note* Diagnosis Onset Date Resolution Status Admit Date Cervical spondylosis acuteMarch 2024 10:04amHypertensionacuteMarch 2024 10:04amHx of fusion of cervical spineresolvedMarch 2024 10:04amCervical paindeletedMarch 2024 10:04amCentral stenosis of spinal canalacuteMarch 2024 2:57pm Herniated intervertebral disc of lumbar spineacuteMarch 2024 2:57pm HypertensionacuteMarch 2024 2:57pmPrimary osteoarthritis, right shoulder acuteMarch 2024 2:57pmType 2 diabetes mellitus with hyperglycemiaacute July 04, 2024 2:57pmAcute blood loss anemiaacuteMarch 2024 9:25am Central stenosis of spinal canalacuteMarch 2024 9:25amHerniated intervertebral disc of lumbar spineacuteMarch 2024 9:25amHypotension due to hypovolemiaacuteMarch 2024 9:25amType 2 diabetes mellitus with hyperglycemiaacuteJuly 13, 2024 9:25amAcute blood loss anemiaacuteMarch 2024 10:08amAdverse effect of mixed sedativesacuteMarch 2024 10:08am Central stenosis of spinal canalacuteMarch 2024 10:08amHerniated intervertebral disc of lumbar spineacuteMarch 2024 10:08amHypotension due to hypovolemiaacuteMarch 2024 10:08amType 2 diabetes mellitus with hyperglycemiaacuteMarch 2024 10:08amVisual hallucinationsacuteMarch 2024 10:08am [facility] Work Phone: 1([phone]) 132-654403-03-2025 Evaluation note* Diagnosis Onset Date Resolution Status Admit Date Cervical spondylosis acuteAtl[facility] 20[facility] 10:04amHypertensionacuteMar 2024 10:04amHx of fusion of cervical spineresolvedJunch 2024 10:04amCervical paindeletedMar 2024 10:04amCentral stenosis of spinal canalacuteMarch 2024 2:57pm Herniated intervertebral disc of lumbar spineacuteMarch 2024 2:57pm HypertensionacuteMarch 2024 2:57pmPrimary osteoarthritis, right shoulder acuteMarch 2024 2:57pmType 2 diabetes mellitus with hyperglycemiaacute July 04, 2024 2:57pmAcute blood loss anemiaacuteMarch 2024 9:25am Central stenosis of spinal canalacuteMarch 2024 9:25amHerniated intervertebral disc of lumbar spineacuteMarch 21st, 2025 9:25amHypotension due to hypovolemiaacuteMarch 2024 9:25amType 2 diabetes mellitus with hyperglycemiaacuteMar2024 9:25amAcute blood loss anemiaacuteMarch 2024 10:08amCentral stenosis of spinal canalacuteMarch 2024 10:08am Herniated intervertebral disc of lumbar spineacuteMarch 2024 10:08am Hypotension due to hypovolemiaacuteMarch 2024 10:08amType 2 diabetes mellitus with hyperglycemiaacuteMarch 2024 10:08amVisual hallucinations acuteMarch 2024 10:08am [facility] Work Phone: 1(231) 283-851902-07-2024 Evaluation note* Encounter Date Diagnosis Assessment Notes Treatment Notes Treatment Clinical Notes May, Autoimmune thyroiditis (ICD-10 - E06.3) May,Elevated cholesterol (ICD-10 - E78.00) May,Type 2 diabetes mellitus with hyperglycemia, without long-term current use of insulin (ICD-10 - E11.65) May,rimary hypertension (ICD-10 - I10) May,Intractable chronic migraine without aura and without status migrainosus (ICD-10 - G43.719) [facility] Other 01-15-2024 Evaluation note* Encounter Date Diagnosis Assessment Notes Treatment Notes Treatment Clinical Notes Apr, Intractable chronic migraine without aura and without status migrainosus (ICD-10 - G43.719) [facility] Other 01-08-2024 Evaluation note* Encounter Date Diagnosis Assessment Notes Treatment Notes Treatment Clinical Notes Apr, Intractable chronic migraine without aura and without status migrainosus (ICD-10 - G43.719) [facility] Other 01-05-2024 Evaluation note* Encounter Date Diagnosis Assessment Notes Treatment Notes Treatment Clinical Notes Apr, Intractable chronic migraine without aura and without status migrainosus (ICD-10 - G43.719) Healthy diet, consistent sleep routine and rest. Discussed triggers and modes to avoid. d/c Maxalt and begin Naratriptan. Continue Atenolol Add Amitriptyline Due to change in character, duration and intensity of headaches, recommend MRI brain Apr,4Cervicalgia (ICD-10 - M54.2)Heat/ice and ROM exercises. Begin Amitriptyline Stop Tizanidine. MRI cervical spine Apr,4Cervical spondylosis (ICD-10 - M47.812)Heat/ice and ROM exercises. Begin Amitriptyline Stop Tizanidine. 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 May want to cut back on Zanaflex. Nov,ysarthria (ICD-10 - R47.1)Resolved, monitor for any recurrence. Reviewed stroke symptoms. Nov,rimary hypertension (ICD-10 - I10)This patient is instructed to consume a healthy, low-fat, low-salt diet. They are also encouraged to continue exercise to achieve/maintain a normal BMI. Patient is instructed on home BP measurements: - rest for 5 minutes w/o talking- positioned w/ feeton floor and arm supported- average best 2/3 readings w/ goal < 135/85 _update after checking at work Nov,3Pain in right shoulder (ICD-10 - M25.511)Holding Relafen since doesn't seem to help. Continue ice/heat and ROM exercises Continue Tylenol as needed Avoid opiates due to work schedule and concomitant use of sedative meds Call if pain increases w/ stopping Relafen: trial of different med (Celebrex, Lodine, Mobic?) Nov,3Pain in left shoulder (ICD-10 - M25.512) [facility] Other 06-30-2023 Evaluation note* Encounter Date Diagnosis Assessment Notes Treatment Notes Treatment Clinical Notes Sep, Type 2 diabetes mabel itus with hyperglycemia, without long-term current use of insulin (ICD-10 - E11.65) [facility] Other 06-05-2023 Evaluation note* Encounter Date Diagnosis Assessment Notes Treatment Notes Treatment Clinical Notes Sep, Candidiasis, intertriginous (ICD -10 - B37.2) [facility] Other 04-12-2023 Evaluation note* Encounter Date Diagnosis Assessment Notes Treatment Notes Treatment Clinical Notes Jul, Type 2 diabetes mabel itus with hyperglycemia, without long-term current use of [...] which are reviewed at the office visit. Jul,rimary hypertension (ICD-10 - I10)This patient is instructed to consume a healthy, low-fat, low-salt diet. They are also encouraged to continue exercise to achieve/maintain a normal BMI. Jul,OSA (obstructive sleep apnea) (ICD-10 - G47.33)This patient is aware of the benefits associated with STEPHANIE: With continued use, the patient reduces the risk for AL, CVA, HTN, cardiac dysrhythmias and sudden cardiac deaths.The patient is also aware of the association between STEPHANIE and morning headaches, daytime somnolence,fatigue and obesity, Noncompliant, stressed importance of treatment Jul,Strain of right knee, subsequent encounter (ICD-10 - S86.911D)Quad exercises, ice/heat and NSAIDs Bracing if beneficial Refer to ortho Jul,Elevated cholesterol (ICD-10 - E78.00)Diet and exercise with continued statin therapy. Jul,Thyroid nodule (ICD-10 - E04.1)Thyroid US: TR4 - 2020, 03/2022 Surveilance thyroid US - no change since - TR 4 Jul,astroesophageal reflux disease with esophagitis without hemorrhage (ICD-10 - K21.00)Diet instructions: Smaller portions, avoid eating and laying flat, avoid eating or drinking prior to bedtime. Weight loss. Occasional Tums Jul,utoimmune thyroiditis (ICD-10 - E06.3)Euthyroid, TSH yearly Jul,Other specified hypothyroidism (ICD-10 - E03.8) [facility] Other Evaluation noteNo InformationNortGrand View Health [facility] Other Evaluation noteNo assessment information available [facility] Work Phone: Evaluation note* Diagnosis Onset Date Resolution Status Cervical pain acuteCervical spondylosisacuteCervical painacuteCervical spondylosisacutePainful lumpy right breastacute [facility] Work Phone: Evaluation note* Diagnosis Intractable back pain- Primary Backache, unspecified Spinal stenosis of lumbar region with neurogenic claudication Spinal stenosis, lumbar region, with neurogenic claudication Primary hypertension Unspecified essential hypertension Type 2 diabetes mellitus, without long-term current use of insulin (HCC) documented in this encounter [facility]* Diagnosis Osteoarthritis of right knee, unspecified osteoarthritis type documented in this encounter [facility] general Narrative - Reported* Type Description Date Medical History Controlled type 2 di abetes mellitus with hyperglycemia, without long-term current use of insulin Medical HistoryGastroesophageal reflux disease with esophagitis without hemorrhageMedical HistoryElevated cholesterolMedical HistoryObstructive sleep apneaMedical HistoryPrimary hypertensionMedical HistoryOther specified hypothyroidismMedical HistoryAutoimmune thyroiditisMedical HistoryDiverticulosis Medical HistoryRecurrent major depressive disorder, in full remissionMedical HistoryLumbosacral spondylosis with radiculopathyMedical HistoryLump of left breastMedical HistoryCervical spondylosisMedical HistoryGAD (generalized anxiety disorder)Medical HistoryLeukopeniaSurgical [id number],urgical History [id number],urgical HistoryLAMINOTOMY AND FORAMINOTOMY,SPINE,LUMBAR Surgical HistoryANTERIOR CERVICAL DISCECTOMY AND FUSIONSurgical HistoryTAH/BSO Surgical HistoryTHYROIDECTOMY10/1990Surgical HistoryLEFT HEART CATHETERIZATION 2016Hospitalization HistorySEE SURIGCAL HX [facility] Other History general Narrative - Reported* Type Description Date Medical History Controlled type 2 di abetes mellitus with hyperglycemia, without long-term current use of insulin Medical HistoryGastroesophageal reflux disease with esophagitis without hemorrhageMedical HistoryElevated cholesterolMedical HistoryObstructive sleep apneaMedical HistoryPrimary hypertensionMedical HistoryOther specified hypothyroidismMedical HistoryAutoimmune thyroiditisMedical HistoryDiverticulosis Medical HistoryRecurrent major depressive disorder, in full remissionMedical HistoryLumbosacral spondylosis with radiculopathyMedical HistoryLump of left breastMedical HistoryCervical spondylosisMedical HistoryGAD (generalized anxiety disorder)Medical HistoryLeukopeniaSurgical [id number],urgical History [id number],urgical HistoryLAMINOTOMY AND FORAMINOTOMY,SPINE,LUMBAR Surgical HistoryANTERIOR CERVICAL DISCECTOMY AND FUSIONSurgical HistoryTAH/BSO Surgical HistoryTHYROIDECTOMY10/1990Surgical HistoryLEFT HEART CATHETERIZATION 2016Surgical HistoryRight knee arthroscopy10/2022Hospitalization HistorySEE SURIGCAL [facility] Other Reason for referral (narrative)* Reason Evaluation of right knee pain Diagnosis 1 Strain of right knee , subsequent encounter (S86.812V) Referral Organization [facility] Odette roe Referring Provider First Name Robert Referring Provider Last Name Hamilton Referring Provider Specialty Internal Ms yoni Referred Provider Rishi Parker Jr Referred Provider Specialty Orthopedic S urgery Referral Priority Routine Sensee Other Reason for referral (narrative)* Reason Referral for neck pa in Diagnosis 1 Cervicalgia (M54.2) Diagnosis 2 Cervical spondylosis (M47.812) Referral Organization [facility] bhupinder Referring Provider First Name Robert Referring Provider Last Name Hamilton Referring Provider Specialty Internal Ms dicjuan Referred Organization [facility] Referred Address [address], [place],[address] Referred Provider Specialty Pain Medicin e Referral Priority Routine General Notes Patient has hx of ce rvical discectomy and fusion and presented w/ persistent neck pain, which radiated upwards causing a headache. She is being referred for treatment with the pain clinic. Clinical Notes Include MRI [employer] [facility] Lalina Other Reason for referral (narrative)No reason for referral information availableU[facility] Work Phone: Reason for visit Narrative* Auth/CertSpecialty Diagnoses / ProceduresReferred By ContactReferred To Contact Diagnoses Intractable back pain large disc herniation Jose Sharif MD [address] [place] [address] Phone: tel: fax: [facility] [address] [place] [address] Referral IDStatusReasonStart DateExpiration DateVisits RequestedVisits [id number] [facility] CenterReason for visit Narrative* Imaging (Routine) - Closed SpecialtyDiagnoses / ProceduresReferred By ContactReferred To ContactRadiology Diagnoses Osteoarthritis of right knee, unspecified osteoarthritis type Procedures MRI KNEE RIGHT WO CONTRAST Tomás Helton, DO [address] [place] [address] Phone: tel: fax: Referral IDStatusReasonStart DateExpiration DateVisits RequestedVisits [id number] [facility] AttorneyFee Summary Purpose Family History No Family History Records Found Relationship Condition Age at Onset Recorded Date/T babar father Heart disease Unknown Diabetes mellitusUnknownsisterAsthmaUnknown Advance Directives No Advanced Directives Records Found Advance Directive Response Recorded Date/ Time Advance Directives No December 20, 2023 3:16pm Advance Directive Response Recorded Date/ Time Advance Directives No December 20, 2023 2:16pm Date ActivatedDate InactivatedComments07/06/2024 7:55 PMNameRelationship Healthcare Agent RelationshipCommunicationCarl DahmSpousePrimary Decision Maker * TypeDate RecordedPatient RepresentativeExplanationACP-Advance Directive07/13/2024 10:35 PMDate ActivatedDate InactivatedComments07/06/2024 7:55 PM07/11/2024 2:07 PM NameRelationshipHealthcare Agent RelationshipCommunicationCarl DaSpousePrimary Decision Maker* Chief Complaint and Reason for Visit Chief Complaint wellness/migraines, neck pain Chief Complaint wellness/migraines, neck pain CC Adult Risk Stratification neck painReason for VisitCervical pain Cervical spondylosis Cervical pain Cervical spondylosis [...] 2:5 7pm Primary osteoarthritis, right shoulder M 2024 2:57pm Type 2 diabetes mellitus with [...] mass, left January 23, 2025 11 :33am Chief Complaint Admit Date R Side Pain [...] back pain radiating to right leg Oct 2024 11:33am Lumbar spondylosis January 23, 2025 11 :33am Major depression January 23, 2025 11 :33am STEPHANIE (obstructive sleep apnea) January 11:33am Type 2 diabetes mellitus with hyperglyce dion January 23, 2025 11:33am Additional Source Comments INFORMATION SOURCE (unrecogn ized section and content) DATE CREATED AUTHOR 06/20/2018 [facility] DATE CREATED AUTHOR AUTHOR'S ORGANIZ ATION 07/04/2018 [facility] DATE CREATED AUTHOR AUTHOR'S ORGANIZ ATION 09/18/2020 [facility] DATE CREATED AUTHOR AUTHOR'S ORGANIZ ATION 08/27/2022 [facility] DATE CREATED AUTHOR AUTHOR'S ORGANIZ ATION 06/23/2024 [facility] DATE CREATED AUTHOR AUTHOR'S ORGANIZ ATION 08/10/2024 [facility] DATE CREATED AUTHOR AUTHOR'S ORGANIZ ATION 12/03/2024 [facility] DATE CREATED AUTHOR AUTHOR'S ORGANIZ ATION 02/15/2025 [facility] DATE CREATED AUTHOR AUTHOR'S ORGANIZ ATION 02/16/2025 [facility] REASON FOR VISIT (unrecogniz ed section [...] Active Start: September 12, 2024 End: September 12andrew Villasenor DOAttending ProviderActiveStart: September 12, 2024 End: September 12, 2024 Team Status: Active Member Role Status Dates Robert Villasenor DO Primary Care Provider Active Start: September 14, 2024 Robert Villasenor DOAttending ProviderActiveStart: September 14, 2024 Team Status: Active Member Role Status Dates Robert Villasneor DO Primary Care Provider Active Start: September 21, 2024 Robert Villasenor DOAttending ProviderActiveStart: September 21, 2024 Team Status: Inactive Member Role Status Dates Robert Villasenor DO Primary Care Provider Active Start: October 11, 2024 End: October 11andrew Villasenor DOAttending ProviderActiveStart: October 11, 2024 End: October 11, 2024 Team Status: Active Member Role Status Dates Robert Villasenor DO Primary Care Provider Active Start: October 13, 2024 Robert Villasenor DOAttending ProviderActiveStart: October 13, 2024 Team Status: Inactive Member Role Status Dates Robert Villasenor DO Primary Care Provider Active Start: November 28, 2024 End: November 28andrew Villasenor DOAttending ProviderActiveStart: November 28, 2024 End: November 28, 2024 Team Status: Active Member Role Status Dates Nikki Stanton MD Primary Care Provider Active Team Status: Inactive Member Role Status Dates Nikki Stanton MD Primary Care Provider Active S tart: December 20, 2023 End: December 19andrew Villasenor DOAttkiesha ProviderActiveStart: December 20, 2023 End: December 20, 2023 Team Status: Active Member Role Status Dates Nikki Stanton MD Primary Care Provider Active S tart: December 27, 2023 Elmo Alexis ProviderActiveStart: December 27, 2023 Team Status: Active Member Role Status Dates Nikki Stanton MD Primary Care Provide r, Attending Provider Active Start: February 22, 2024 Team Status: Inactive Member Role Status Dates Nikki Stanton MD Primary Care Provider Active S tart: February 24, 2024 End: February 23Elmo Alanis ProviderActiveStart: February 24, 2024 End: February 24, 2024 [...] Start: July 04, 2024 End: July 04, 2024Team MemberRelationshipSpecialtyStart DateEnd Date Robert Villasenor DO [address] [place] [id number] PCP - GeneralInternal Medicine07/06/24 Team Status: Active Member Role Status Hakeem Villasenor DO Primary Care Provider Active Start: July 11, 2024 Tosin Nix ProviderActiveStart: July 11, 2024 Team Status: Active Member Role Status Hakeem Villasenor DO Primary Care Provider Active Start: July 12, 2024 Tera Bazzi DOAttending ProviderActiveStart: July 12, 2024 Team Status: Inactive Member [...] Start: July 25, 2024 End: July 25, 2024Team MemberRelationshipSpecialtyStart DateEnd Date Robert Villasenor DO [address] [place] [address] PCP - GeneralInternal Medicine07/06/24 Team Status: Inactive Member Role Status Dates Robert Villasenor DO Primary Care Provider Active Start: January 23, 2025 End: January 23andrew Villasenor DOAttkiesha ProviderActiveStart: January 23, 2025 End: January 23, 2025 Team Status: Active Member Role/Relationship Status Hakeem Villasenor DO Primary Care Provider Active Team Status: Inactive Member Role/Relationship Status Hakeem Villasenor DO Primary Care Provider Active Start: November 28, 2024 End: November 28andrew Villasenor DOAttkiesha ProviderActiveStart: November 28, 2024 End: November 28, 2024 Team Status: Inactive Member Role/Relationship Status Hakeem Villasenor DO Primary Care Provider Active Start: January 23, 2025 End: January 23andrew Villasenor DOAttending ProviderActiveStart: January 23, 2025 End: January 23, 2025 Team Status: Active Member Role/Relationship Status Dates Robert Villasenor DO Primary Care Provider Active Start: February 06, [address] MDAttkiesha ProviderActiveStart: February 06, 2025 Team Status: Inactive Member Role/Relationship Status Dates Robert Villasenor DO Primary Care Provider Active Start: February 13, 2025 End: February 13andrew Villasenor DOAttending ProviderActiveStart: February 13, 2025 End: February 13, 2025 Goals (unrecognized section and content) Goals may be documented in a n alternate section Scheduled Active and Recently Administ ered Medications (unrecognized section and content) Medication Order/ albumin human 25% IV solution 25 g [...] to 3 mL/minute in patients with hypoproteinemia * 0019 (New Bag - Provider: Chrissy Cuellar, RN) * 0118 (Stopped - Provider: Chrissy Cuellar, RN) atenolol (TENORMIN) tablet 50 mg 50 mg, Oral, DAILY, First dose on Tue07/07/24 at 1000, Until Discontinued, Hold for HR less then 60, On hold since Tue07/10/2024 at 1409 until manually unheld * 0755 (Given - Provider: Irma Villagomez, FLETCHER) * 0843 (Given - Provider: Bhavani Anderson, FLETCHER) * 1409 (Held by provider - Provider: Jose Sharif MD - Reason: Other) * 0900 (Automatically Held - Provider: Jose Sharif MD) bisacodyl (DULCOLAX) EC tablet 5 mg 5 mg, Oral, DAILY, First dose on Tue07/08/24 at 2015, Until Discontinued, Do not crush or break., Post-op * 0755 (Given - Provider: Irma Villagomez RN) * 0843 (Given - Provider: Bhavani Anderson, FLETCHER) * 0840 (Not Given - Provider: Bhavani Anderson [...] mL Sterile Water. Withdraw entire contents., Post-op * 0105 (Given - Provider: Bijal Zavala RN) * 0755 (Given - Provider: Irma Villagomez RN) citalopram (CELEXA) tablet 20 mg 20 mg, Oral, DAILY, First dose on Tue07/07/24 at 0900, Until Discontinued * 0755 (Given - Provider: Irma Villagomez RN) * 0843 (Given - Provider: Bhavani Anderson RN) * 0843 (Given - Provider: Bhavani Anderson RN) clonazePAM (KLONOPIN) tablet 1 mg 1 mg, Oral, NIGHTLY, First dose on Tue07/06/24 at 2200, Until Discontinued * 2001 (Given - Provider: Sommer Alcala RN) * 2055 (Given - Provider: Chrissy Cuellar, FLETCHER) * 2099 (Due) gabapentin (NEURONTIN) capsule 200 mg 200 mg, Oral, 2 TIMES DAILY, First dose on Tue07/07/24 at 1000, Until Discontinued * 0755 (Given - Provider: Irma Villagomez RN) * 2001 (Given - Provider: Sommer Alcala RN) * 0843 (Given - Provider: Bhavani Anderson, FLETCHER) * 2055 (Given - Provider: Chrissy Cuellar, FLETCHER) * 0843 (Given - Provider: Bhavani Anderson RN) * 2099 (Due) glipiZIDE (GLUCOTROL) tablet 10 mg 10 mg, Oral, DAILY BEFORE BREAKFAST, First dose on Tue07/11/24 at 0700, Until Discontinued, Substituted for glimepiride (AMARYL). * 0634 (Given - Provider: Chrissy Cuellar RN) [...] 60 minutes of last blood glucose check * 1109 (Given - Provider: Kimberlyn Chakraborty RN) * 1606 (Not Given - Provider: Bhavani Anderson RN - Reason: Order parameters not met) * 205 (Given - Provider: Chrissy Cuellar, FLETCHER) * 0713 (Not Given - Provider: Bhavani Anderson RN - Reason: Order parameters not met) * 1100 (Due) * 1700 (Due) * 2100 (Due) insulin lispro (HUMALOG,ADMELOG) injection vial 0-4 [...] 60 minutes of last blood glucose check * 0755 (Given - Provider: Irma Villagomez, RN) * 1301 (Given - Provider: Irma Villagomez, RN) * 1622 (Not Given - Provider: Irma Villagomez RN - Reason: Order parameters not met) * 2004 (Given - Provider: Sommer Alcala RN) * 0843 (Given - Provider: Bhavani Anderson RN) * 1105 (Not Given - Provider: Bhavani Anderson RN - Reason: Other) levothyroxine (SYNTHROID) tablet 125 mcg 125 mcg, Oral, DAILY, First dose on Tue07/07/24 at 0700, Until Discontinued, Tube feeding (TF) interaction, obtain physician order to manage, recommend holding TF for 30 minutes before and after dose. * 0656 (Given - Provider: Bijal Zavala RN) * 0533 (Given - Provider: Sommer Alcala RN) * 0634 (Given - Provider: Chrissy Cuellar, FLETCHER) lisinopril (PRINIVIL;ZESTRIL) tablet 5 mg 5 mg, Oral, DAILY, First dose on Tue07/06/24 at 2015, Until Discontinued, On hold since Tue07/10/2024 at 1409 until manually unheld * 0755 (Given - Provider: Irma Villagomez RN) * 0843 (Given - Provider: Bhavani Anderson, FLETCHER) * 1409 (Held by provider - Provider: Jose Sharif MD - Reason: Other) * 0900 (Automatically Held - Provider: Jose Sharif MD) naloxegol (MOVANTIK) tablet 12.5 mg 12.5 mg, Oral, DAILY BEFORE BREAKFAST, First dose on Tue07/10/24 at 0700, Until Discontinued, Administer on an empty stomach at least 1 hour prior to or 2 hours after the first meal of the day. Avoidconsumption of grapefruit or grapefruit juice during treatment. * 0535 (Given - Provider: Sommer Alcala RN) * 0634 (Given - Provider: Chrissy Cuellar, FLETCHER) polyethylene glycol (GLYCOLAX) packet 17 g 17 g, Oral, DAILY, First dose on Tue07/08/24 at 2015, Until Discontinued, Stir and dissolve one packet of powder (17 g) in any 4 to 8 ounces of beverage (cold, hot or room temperature) then drink, Post-op * 0755 (Given - Provider: Irma Villagomez RN) * 0843 (Given - Provider: Bhavani Anderson RN) * 0840 (Not Given - Provider: Bhavani Anderson RN - Reason: Patient/family refused) sennosides-docusate sodium (SENOKOT-S) 8.6-50 MG tablet 1 tablet 1 tablet, Oral, 2 TIMES DAILY, First dose on Tue07/08/24 at 2100, Until Discontinued, Post-op * 0755 (Given - Provider: Irma Villagomez RN) * 2002 (Given - Provider: Sommer Alcala RN) * 0843 (Given - Provider: Bhavani Anderson RN) * 2055 (Given - Provider: Chrissy Cuellar, FLETCHER) * 0840 (Not Given - Provider: Bhavani Anderson RN - Reason: Patient/family refused) * 2100 (Due) sodium chloride 0.9 % bolus 500 mL (COMPLETED) 500 mL (6.3 mL/kg), IntraVENous, at 247.9 mL/hr, Administer over 121 Minutes, ONCE, On Tue07/10/24 at 1430, For 1 dose * 1414 (New Bag - Provider: Bhavani Anderson RN) * 1619 (Stopped - Provider: Bhavani Anderson RN) sodium chloride 0.9 % bolus 500 mL (COMPLETED) 500 mL (6.3 mL/kg), IntraVENous, at 247.9 mL/hr, Administer over 121 Minutes, ONCE, On Tue07/10/24 at 2014, For 1 dose * 2024 (New Bag - Provider: Chrissy Cuellar, FLETCHER) * 2225 (Stopped - Provider: Chrissy Cuellar RN) sodium chloride flush 0.9 % injection 5-40 mL 5-40 mL, IntraVENous, EVERY 12 HOURS SCHEDULED (2 times per day), First dose on Tue07/08/24 at 2100, Until Discontinued, For Line Patency: Peripheral IV = 5 mL; Midline or Central Line = 10 mL/lumen.If following IV push medication, administer flush at same rate as the IV push. Flush volume is determined by type of infusion therapy being given. For non-viscous solutions use: Peripheral IV = 5 mL Midline or Central Line = 10 mL/lumen For viscous solutions (i.e. blood components, parenteral nutrition, contrast media, or after obtaining blood sample) use: Peripheral IV = 10 mL Midline or CentralLine = 20 mL/lumen, Post-op * 0756 (Not Given - Provider: Irma Villagomez RN - Reason: IV Fluid Infusing) * 2109 (Given - Provider: Sommer Alcala RN) * 0840 (Given - Provider: Bhavani Anderson, RN) * 2058 (Not Given - Provider: Chrissy Cuellar, FLETCHER - Reason: IV Fluid Infusing) * 0843 (Given - Provider: Bhavani Anderson, FLETCHER) * 2100 (Due) sodium zirconium cyclosilicate (LOKELMA) oral suspension [...] hours before or 2 hours after dose. * 0755 (Given - Provider: Irma Villagomez RN) Medication Order// 0.9 % sodium chloride infusion IntraVENous, at 125 mL/hr, CONTINUOUS, Starting on Tue07/08/24 at 2014, Post-op * 1025 (Stopped - Provider: Bhavani Anderson RN) Medication Order503/503/ 0.9 % sodium chloride infusion IntraVENous, at [...] on Tue07/08/24 at 1950, Until Discontinued, Constipation, Secondline therapy for constipation, After 24 hours, if no result from first line PRN therapy, give second line therapy in combination with first line therapy., Post-op * 1712 (Given - Provider: Bhavani Anderson, FLETCHER) cyclobenzaprine (FLEXERIL) tablet 10 mg 10 mg, Oral, 3 TIMES DAILY PRN, Starting on Tue07/08/24 at 1950, Until Discontinued, Muscle spasms,Post-op * 0442 (Given - Provider: Bijal Zavala, RN) * 1302 (Given - Provider: Irma Villagomez, RN) * 2130 (Given - Provider: Sommer Alcala, FLETCHER) * 0533 (Given - Provider: Sommer Alcala, FLETCHER) * 1702 (Given - Provider: Bhavani Anderson, FLETCHER) * 0843 (Given - Provider: hBavani Anderson, FLETCHER) dextrose 10 % infusion IntraVENous, [...] Tue07/10/24 at 1102, Repeat blood glucose in 15minutes. If blood glucose remains LESS THAN 70 mg/dL, repeat treatment and recheck blood glucose in15 minutes x 2. If using glycemic management [...] at 100 mL/hr. Repeat blood glucose in 15minutes x 2 and notify provider. Reconstitute powder for injection by adding 1 mL of retail sales director-supplied sterile diluent or sterile water for injection [...] alert and tolerating oral. Give 4 tablets (16g)Repeat blood glucose in 15 minutes. If blood glucose is LESS THAN 70 mg/dL, repeat treatment and recheck blood glucose in 15 minutes x 2. If blood glucose remains LESS THAN 70 mg/dL, notify provider. hydrALAZINE (APRESOLINE) injection 10 mg 10 mg, IntraVENous, EVERY 4 HOURS PRN, Starting on Tue07/06/24 at 1953, Until Discontinued, SBP > 160 HYDROcodone-acetaminophen (NORCO) 5-325 MG per tablet 1 tablet(Linked Group 3) 1 tablet, Oral, EVERY 4 HOURS PRN, Starting on Tue07/06/24 at 1954, Until Discontinued, Pain Moderate (4-6), allowed for higher pain score per patient request, Maximum dose of acetaminophen is 4000 mg from all sources in 24 hours. * 0442 (See Alternative - Provider: Bijal Zavala RN) * 0853 (See Alternative - Provider: Irma Villagomez, FLETCHER) * 1302 (See Alternative - Provider: Irma Villagomze, RN) * 1724 (See Alternative - Provider: Irma Villagomez, RN) * 2130 (See Alternative - Provider: Sommer Alcala, FLETCHER) * 0134 (Given - Provider: Laranda Pasko, RN) * 0532 (See Alternative - Provider: Sommer Alcala RN) * 0944 (See Alternative - Provider: Bhavani Anderson, FLETCHER) * 1555 (See Alternative - Provider: Bhavani Anderson, FLETCHER) * 205 (See Alternative - Provider: Chrissy Cuellar, FLETCHER) * 0353 (Given - Provider: Chrissy Cuellar, FLETCHER) * 0843 (See Alternative - Provider: Bhavani Anderson, FLETCHER) HYDROcodone-acetaminophen (NORCO) 5-325 MG per tablet 2 tablet(Linked Group 3) 2 tablet, Oral, EVERY 4 HOURS PRN, Starting on Tue07/06/24 at 1954, Until Discontinued, Pain Severe(7-10), Maximum dose of acetaminophen is 4000 mg from all sources in 24 hours. * 0442 (Given - Provider: Bijal Zavala RN) * 0853 (Given - Provider: Irma Villagomez, RN) * 1302 (Given - Provider: Irma Villagomez, RN) * 1724 (Given - Provider: Irma Villagomez, RN) * 2130 (Given - Provider: Sommer Alcala RN) * 0134 (See Alternative - Provider: Sommer Alcala RN) * 0532 (Given - Provider: Sommer Alcala RN) * 0944 (Given - Provider: Bhavani Anderson, FLETCHER) * 155 (Given - Provider: Bhavani Anderson, FLETCHER) * 2055 (Given - Provider: Chrissy Cuellar, FLETCHER) * 0353 (See Alternative - Provider: Chrissy Cuellar, FLETCHER) * 0843 (Given - Provider: Bhavani Anderson, FLETCHER) magnesium hydroxide (MILK OF MAGNESIA) 400 MG/5ML suspension 30 mL 30 mL, Oral, DAILY PRN, Starting on Tue07/08/24 at 1950, Until Discontinued, Constipation, First line therapy for constipation., Post-op * 0420 (Given - Provider: Sommer Alcala RN) [...] 2 doses Infuse at 1,000 mg/hr Repeat Maglevel 1 hour after final administration Protocol not [...] cannot take oral. Do Not give oral andIV within 1 hour of each other unless specifically ordered., Post-op * 0656 (Given - Provider: Bijal Zavala RN) * 1109 (See Alternative - Provider: Irma Villagomez, FLETCHER) [...] hour of each other unless specifically ordered. * 1948 (Given - Provider: Chrissy Cuellar RN) [...] of each other unless specifically ordered., Post-op * 0656 (See Alternative - Provider: Bijal Zavala RN) * 1109 (Given - Provider: Irma Villagomez RN) morphine [...] hour of each other unless specifically ordered. * 1948 (See Alternative - Provider: Chrissy Cuellar [...] use in patients with CrCl less than 30mL/min. Do not crush, chew, or suck on [...] in patients with CrCl less than 30 mL /min. sodium chloride flush 0.9 % injection 5-40 [...] For viscous solutions (i.e. blood components, parenteral nutrition,contrast media, or after obtaining blood sample) use: Peripheral IV = 10 mL Midline or Central Line= 20 mL/lumen, Post-op Order Group 1: acetaminophen (TYLENOL) tablet 650 [...] Tue07/10/24 at 1102, Repeat blood glucose in 15minutes. If blood glucose remains LESS THAN 70 mg/dL, repeat treatment and recheck blood glucose in15 minutes x 2. If using glycemic management system, dose as instructed per system. If blood glucose remains LESS THAN 70 mg/dL after 2 intravenous boluses start dextrose 10% at 100 mL/hour and notify provider. Group 3: HYDROcodone-acetaminophen (NORCO) 5-325 MG per tablet 1 tabletJump to med 1 tablet, Oral, EVERY 4 HOURS PRN, Starting on Tue07/06/24 at 195, Until Discontinued, Pain Moderate (4-6), allowed for higher pain score per patient request, Maximum dose of acetaminophen is 4000 mg from all sources in 24 hours. Or HYDROcodone-acetaminophen (NORCO) 5-325 MG per tablet 2 tabletJump to med 2 tablet, Oral, EVERY 4 HOURS PRN, Starting on Tue07/06/24 at 195, Until Discontinued, Pain Severe(7-10), Maximum dose of acetaminophen is 4000 mg [...] cannot take oral. Do Not give oral andIV within 1 hour of each other unless [...] if oral route cannot be used., Post-op Group 7: potassium chloride (KLOR-CON M) extended [...] use in patients with CrCl less than 30mL/min. Do not crush, chew, or suck on [...] in patients with CrCl less than 30 mL /min. FOR RECORDS PERTAINING TO PATIENTS WHO ARE [...] BE BASED ON THE PRIMARY CLINICAL RECORDS. [employer] provides no warranty or guarantee of the accuracy or completeness of information in this document.
--- OUTSIDE RECORDS SUMMARY | 2025-02-16 19:12 | XMS_ITS | Clinical Summary ---
Author Organization [facility] Address [address] [place] [address] Phone Care Team Providers Care Sales Manager Name Role Phone Blane Buckner MD Primary Care Provider [phone] Social History Tobacco UseTypesPacks/DayYears UsedDateSmoking Tobacco: Never Assessed CommentsUnknownSex and Gender InformationValueDate RecordedSex Assigned at Not on fileLegal SwbJpbvnf88/25/2022 4:08 PM ESTGender IdentityNot on fileSexual OrientationNot on file Plan of Treatment Not on file Care Teams Team MemberRelationshipSpecialtyStart [place] [address] [address] PCP - [facility]07/04/14
--- OUTSIDE RECORDS SUMMARY | 2025-02-16 19:13 | XMS_ITS | Clinical Summary ---
Author Organization [facility] Address [address] [place] [address] Care Team Providers Care Sweatband Maker Name Role Phone AnthonyRobert Karen STOCKTON Primary Care Provider [phone] Medications No known medications Active Problems No known active problems Family History Medical HistoryRelationNameCommentsDiabetesFatherHeart diseaseFatherHypertension FatherHyperlipidemiaMotherRelationNameStatusCommentsFatherAliveMotherAlive Social History Tobacco UseTypesPacks/DayYears UsedDateSmoking Tobacco: Never Tobacco Cessation:Counseling Given: Not Answered Alcohol UseStandard Drinks/WeekCommentsNever0 (1 standard drink = 0.6 oz pure alcohol)CommentsUnknownSex and Gender InformationValueDate RecordedSex Assigned at OdwlbMfnmzk63/19/2023 8:42 AM EDTLegal ZcnHkpjuy48/01/2023 8:32 PM EDTGender VqacpwyyRyyweo53/19/2023 8:42 AM EDTSexual OrientationNot on file Last Filed Vital Signs Vital SignReadingTime TakenCommentsBlood Roujerau748/8203/11/2021 12:00 PM EST Pulse--Temperature--Respiratory Rate--Oxygen Saturation--Inhaled Oxygen Concentration--Qsicqa81.6 kg (180 lb)09/09/2022 12:00 PM BNIVyhzpk411.2 cm (5' 1.5 )09/09/2022 12:00 PM EDTBody Mass Index33.4605 12:00 PM EDT Plan of Treatment Not on file Insurance MemberSubscriberPlan / Payer (Effective 2022-Present)Name:Janny Fuentes Member ID:[id number] Relation to Subscriber:SelfName:Janny Fuentes Subscriber ID:[id number] Payer ID:Not on file Type:Not on file Address: [facility] [id number] [place] [id number] Care Teams Team MemberRelationshipSpecialtyStart DateEnd Date Robert Cruz DO PCP - GeneralInternal Medicine10/01/22
--- OUTSIDE RECORDS SUMMARY | 2025-02-16 19:13 | XMS_ITS | Clinical Summary ---
Author Organization [facility] Address [address], [address] [place] [address] Care Team Providers Care Coil Tester Name Role Phone Robert Cruz DO Primary Care Provider [phone] Allergies Active AllergyReactionsCriticalityNoted DateCommentsMeperidine HclOther (See Comments)07/06/2024 Bottoms out blood pressure. XjkyZliymzblprxFmig25/14/2025 Respiratory arrest BwqaujbvmctMkwez25/14/2025Iodine StvnomCuzyb83/14/5660DklajDgbrg49/14/2025 Not a food Medications MedicationSigDispense QuantityRefillsLast FilledStart DateEnd DateStatus clonazePAM (KLONOPIN) 1 MG tablet Take 1 tablet by mouth nightly as needed (Restless leg).Active citalopram (CELEXA) 40 MG tablet Take 1 tablet by mouth dailyActive pravastatin (PRAVACHOL) 20 MG tablet Take 1 tablet by mouth dailyActive levothyroxine (SYNTHROID) 125 MCG tablet Take 1 tablet by mouth dailyActive etodolac (LODINE) 500 MG tablet Take 1 tablet by mouth 2 times daily5Active glimepiride (AMARYL) 4 MG tablet Take 1 tablet by mouth daily (with breakfast)Active tiZANidine (ZANAFLEX) 4 MG tablet Take 1 tablet by mouth 2 times daily as neededActive atenolol (TENORMIN) 50 MG tablet Take 1 tablet by mouth dailyActive HYDROcodone-acetaminophen (NORCO) 5-325 MG per tablet Take 1 tablet by mouth every 4-6 hours as needed for Pain.Active gabapentin (NEURONTIN) 100 MG capsule Take 2 capsules by mouth 2 times daily.06/30/2024tive metFORMIN (GLUCOPHAGE) 500 MG tablet Take 1 tablet by mouth 2 times daily (with meals)Active predniSONE (DELTASONE) 10 MG tablet Take 1 tablet by mouth daily Started on Tuesday, take 3 tabs daily x3days, 2 tabs daily x3 days, 1 tab daily x3days.Active olmesartan (BENICAR) 20 MG tablet Take 1 tablet by mouth nightlyActive Active Problems ProblemNoted DateDiagnosed DatePrimary zvbbavkkvpsq52/19/2025Type 2 diabetes mellitus, without long-term current use of jlyrtwy8807/11/2024Intractable back pain07/06/2024Spinal stenosis of lumbar region with neurogenic claudication 07/06/2024 Encounters DateTypeDepartmentCare XhkvOjvezvwtsxt26/01/2025 12:39 PM EDT - 11/25/2024 11:59 PM EDTHospital Encounter [facility] [place] [facility] [address] [place] [address] Tomás Helton, Osteoarthritis of right knee, unspecified osteoarthritis type Discharge Disposition: Home or Self Carefrom Last 3 Months Social History Tobacco UseTypesPacks/DayYears UsedDateSmoking Tobacco: NeverSmokeless Tobacco: Never Tobacco Cessation:Counseling Given: No Alcohol UseStandard Drinks/WeekCommentsNever0 (1 standard drink = 0.6 oz pure alcohol)[facility] UtilitiesAnswerDate RecordedIn the past 12 months has the [employer], [employer], oil, or water [employer] threatened to shut off services in your home?No 07/06/2024Hunger Vital SignAnswerDate RecordedWithin the past 12 months, you worried that your food would run out before you got the money to buymore.Never true07/06/2024Within the past 12 months, the food you bought just didn't last and you didn't have money to get more.Never true07/06/2024PRAPARE - TransportationAnswerDate RecordedIn the past 12 months, has lack of transportation kept you from medical appointments or from getting medications?No 07/06/2024In the past 12 months, has lack of transportation kept you from meetings, work, or from getting things needed for daily living?No07/06/2024 Housing Stability Vital SignAnswerDate RecordedIn the last 12 months, was there a time when you were not able to pay the mortgage or rent on time?No07/06/2024In the past 12 months, how many times have you moved where you were living?0 07/06/2024t any time in the past 12 months, were you homeless or living in a half-way (including now)?07/06/2024Food InsecurityAnswerDate RecordedWithin the past 12 months, you worried that your food would run out before you got the money to buymore.Within the past 12 months, the food you bought just didn't last and you didn't have money to get more.Interpersonal Safety Domain Source: IP Abuse ScreeningAnswerDate RecordedPhysical abuseDenies 07/06/2024Verbal ndmhnObqydb59/14/2025Emotional ryojiEphtie09/14/2025Financial eftzaAffair71/14/2025Sexual xugmlGkyuvy68/14/2025CommentsUnknownSex and Gender InformationValueDate RecordedSex Assigned at BirthNot on fileLegal Sex Tgsnuo2906/04/2012 12:47 PM ESTGender IdentityNot on fileSexual OrientationNot on file Last Filed Vital Signs Vital SignReadingTime TakenCommentsBlood Mlqkcsvf993/6203 8:30 AM EDT Nihbh716907/11/2024 8:30 AM USNBxrkpbjzrok13 ??C (98.6 ??F)07/11/2024 8:30 AM EDT Respiratory Ufdy661507/11/2024 8:30 AM EDTOxygen Hpenkqcrav64%07/11/2024 8:30 AM EDTInhaled Oxygen Concentration--Hzudly20.4 kg (175 lb)07/06/2024 8:16 PM EDT Lngulw396.9 cm (5' 1 )07/06/2024 8:16 PM EDTBody Mass Index33.0707/06/2024 8:16 PM EDT Plan of Treatment DateTypeDepartmentCare Team (Latest Contact Info)Iikaknkhrjz85/02/2025 11:20 AM ESTHospital Encounter [facility] [address] [place] [address] Eloise Veliz MD [address] [place] [phone] 03/05/2025 11:20 AM EST - 03/05/2025 2:03 PM ESTSurgery [facility] [address] [place] [address] Eloise Veliz MD [address] [place] [phone] HARDWARE REMOVAL L4-5, L3-4 DECOMPRESSION AND FUSION WITH EXTENSION TO L3Name PriorityAssociated DiagnosesDate/TimeLUMBAR LAMINECTOMY FUSION INSTRUMENTATION POSTERIOR Spinal stenosis of lumbar region, unspecified whether neurogenic claudication present 03/05/2025 11:20 AM ESTHealth MaintenanceDue DateLast HezjRdzhulwmG7J test (Diabetic or Prediabetic)1969Diabetic foot exam04/13/19697141Prlbws57/20/1969 Depression Ktjsld7204/13/1971HIV ehqcra4004/13/1974Diabetic Alb to Cr ratio (uACR) test1977Diabetic retinal exam1977Hepatitis C eagpus6904/13/1977 DTaP/Tdap/Td vaccine (1 - Tdap)1978Pneumococcal 50+ years Vaccine (1 of 2 - PCV)1978Pap smear1980Cervical cancer ffhdkf6104/13/1989HPV (without or with Pap)1989Breast cancer rwrlkw5704/13/19998254Iysydnvdgtw43/20/2004 Colorectal Cancer Xtutnk4204/13/2004FIT/FOBT: Average risk2004Fecal-DNA (Cologuard): Average risk2004Sigmoidoscopy/CT vmxsizebedmn14/20/2004 Shingles vaccine (1 of 2)2009DEXA (modify frequency per FRAX score) 2014nnual Wellness Visit (Medicare Advantage)04/25/2024Flu vaccine (#1) 514COVID-19 Vaccine ( - 2023-25 season)2024GFR test (Diabetes, CKD 3-4, OR last GFR 15-59)6007/11/2024, 07/10/2024, 07/09/2024, Additional history existsRespiratory Syncytial Virus (RSV) or age 60 yrs+ (1 - 1-dose 75+ series)2034Hepatitis A vaccineAged OutNo longer eligible based on patient's age to complete this topicHepatitis B vaccine Aged OutNo longer eligible based on patient's age to complete this topicHib vaccineAged OutNo longer eligible based on patient's age to complete this topic Meningococcal (ACWY) vaccineAged OutNo longer eligible based on patient's age to complete this topicMeningococcal B vaccineAged OutNo longer eligible based on patient's age to complete this topicPolio vaccineAged OutNo longer eligible based on patient's age to complete this topic Medical Devices ImplantedTypeAreaManufacturerDevice IdentifierShelf Expiration DateModel / Serial / LotScrew Spnl L45mm Dia6.5mm Post Thoracolumbosacral Co Chrom - [id number] Implanted:Qty: 2 on 07/08/2024 [facility] Spine LumbarMEDTRONIC SOFAMOR DANEK-[id number] / / Screw Spnl L40mm Dia6.5mm Post Thoracolumbosacral Co Chrom - [id number] Implanted:Qty: 2 on 07/08/2024 [facility]: Spine LumbarMEDTRONIC SOFAMOR DANEK-[id number] / / Set Scr Spnl L6mm Dia5.5mm Ti Brk Off Svetlana W/ Detach Cdh - [id number] Implanted:Qty: 4 on 07/08/2024 [facility]: Spine LumbarMEDTRONIC SOFAMOR DANEK-[id number] / / Evan Spnl L35mm Dia5.5mm Ant Post Thoracolumbosacral Ti - [id number] Implanted:Qty: 2 on 07/08/2024 by [facility]: Spine LumbarMEDTRONIC JUAN HOLGUIN-[id number] / / Procedures Procedure NamePriorityDate/TimeAssociated DiagnosisCommentsMRI KNEE RIGHT WO YMTSMRYMTzlprvp37/01/2025 1:14 PM EDT Osteoarthritis of right knee, unspecified osteoarthritis type GLOMERULAR FILTRATION RATE, ENQXBNLMWTjuijtd14/19/2025 6:43 AM EDT from Last 3 Months or Most Recently Relevant to Health Maintenance Results * MRI KNEE RIGHT WO CONTRAST (11/23/2024 1:14 PM EDT)Anatomical RegionLaterality ModalityThigh, Knee, LegMagnetic ResonanceSpecimen (Source)Anatomical Location / LateralityCollection Method / VolumeCollection TimeReceived Time11/23/2024 1:14 PM EDT Impressions 12/01/2024 6:01 AM [...] No fracture is seen. Procedure Note Isreal Garcia, - 12/01/2024 EXAM: MRI KNEE RIGHT WO [...] 4. No acute ligamentous injury. No fracture. Authorizing ProviderResult TypeResult StatusDybreanna Helton [facility] ORDERABLES Final Result * Glomerular Filtration Rate, Estimated (07/11/2024 6:43 AM EDT)ComponentValue Ref RangeTest MethodAnalysis TimePerformed AtPathologist Sajan Storm Filt Rate62>60 ml/min/1.93w89407/11/2024 7:21 AM [facility] LABComment: Pediatric calculator link https://www.kidney.org/professionals/kdoqi/gfr_calculatorped Effective Jan 25, 2022 These results are not intended for use in patients <18 years of age. eGFR results are calculated without a race factor using the 2020 CKD-EPI equation. ??Careful clinical correlation is recommended, particularly when comparing to results calculated using previous equations. The CKD-EPI equation is less accurate in patients with extremes of muscle mass, extra-renal metabolism of creatinine, excessive creatine ingestion, or following therapy that affects renal tubular secretion. Performed at [facility] [address] [place] [id number] Specimen (Source)Anatomical Location / LateralityCollection Method / Volume Collection TimeReceived Time07/11/2024 6:43 AM EDT07/11/2024 6:43 AM EDT Narrative Authorizing ProviderResult TypeResult StatusAlexis Diglio PACHEMISTRY ORDERABLES Final ResultPerforming OrganizationAddressCity/State/ZIP CodePhone Number [facility] [address] [place] [address], [facility] [phone] [facility] [address] [place] [address], [facility] [phone] from Last 3 Months or Most Recently Relevant to Health Maintenance Insurance Advance Directives TypeDate RecordedPatient RepresentativeExplanationACP-Advance Directive07/13/2024 10:35 PMACP-Advance Directive07/13/2024 10:35 PM * Full Code (Latest Code Status on File) Date ActivatedDate InactivatedComments07/06/2024 7:55 PM07/11/2024 2:07 PM NameRelationshipHealthcare Agent RelationshipCommunicationCarl DaSpousePrimary Decision Maker* Care Teams Team MemberRelationshipSpecialtyStart DateEnd Date Robert Cruz DO [address] [place] [phone] PCP - GeneralInternal Medicine07/06/24
--- OUTSIDE RECORDS SUMMARY | 2025-02-16 19:13 | XMS_ITS | Patient Health Record ---
Author Organization [facility] Address [address] [place] [address] Care Team Providers Care Black Leather Buffer Name Role Phone MICA CRUZ DO Primary Care Provider UnavailTomás Braxton Unavailable [phone] Eloise Meehan Unavailable [phone] Norbert Lewis Unavailable [phone] Dank Sams Unavailable [phone] Norbert Lamar Unavailable [phone] Henok Rosario Unavailable [phone] Brandi Duque Unavailable [phone] Allergies Allergen (clinical drug ingredient) Drug/Non Drug Allergy documented on EMR Reaction Allergy Type Onset Date Status meperidine dermerol (uncoded) Unknown Allergy ActiveLatexlatex (uncoded)UnknownAllergyActiveDHEAUnknownDrug AllergyActive etodolacLodineUnknownDrug AllergyActive Results Component Value Reference Range Notes MRI : Shoulder W/O Contrast Right - 41824 Reviewed date:05/01/2024 03:44:41 PM Interpretation: Performing Lab: Notes/Report: XR LUMBAR SPINE 1 VW Reviewed date:07/11/2024 01:53:12 PM Interpretation: Performing Lab: Notes/Report: MOBILE LATERAL LUMBAR SPINE: [facility] [address] [address], Original Ordering Provider: Magdaleno GREWAL Provider Role: Ordering XR LUMBAR SPINE 1 VW Reviewed date:07/11/2024 01:53:12 PM Interpretation: Performing Lab: Notes/Report: PROCEDURE: XR LUMBAR SPINE [address] [facility] [address] [address], Original Ordering Provider: Magdaleno GREWAL Provider Role: Ordering CT Arthrogram - Right Should er Reviewed date:06/27/2024 12:33:41 PM Interpretation: Performing Lab: Notes/Report: SCC- SHOULDER 3 VIEW RIGHT 7 3030 Reviewed date:05/01/2024 03:44:49 PM Interpretation: Performing Lab: Notes/Report: Surgery Scheduling (Not yet reviewed by provider) Interpretation:Pre-Op orders: CBC,BMP,HGA1C. PT/TT, TYPE AND SCREEN,RSA NASAL SWAB Performing Lab: Notes/Report: Pre-Op orders: CBC,BMP,HGA1C. PT/TT, TYPE AND SCREEN,RSA NASAL SWAB Primary Insurance Company: MEDICARE [facility] Surgeon/Assist:ST STODDARD/NORBERT OR Channing Location:[facility]gery Date & Time:03/05/25 @ 10:15AMHosp arrival time day of:8:15AMSurgery End Time:12:15PM Procedure:HARDWARE REMOVAL L4-5, L3-4 DECOMPRESSION AND FUSION WITH EXTENSION TO K4Iyebyvk Equipment:SSEP, PRONE, SHERITA TABLE, SURGALIGNDiagnosis:M48.061 STENOSISAdmission Type:OUTPATIENTAnesthesia Type/CPNB:[id number] HOURSPost-op Appointment Date:04/11/25 @ 10:10AM FINDLAYLab Location:[facility] Assistant Director Of Plant Operations:Deja Physician:Korey Rodriguezt Date/02/22/25 @ 11:00AM History & Physical Appointment Date/:02/28/25 @ 9:10AM FINDLAYMRI KNEE RIGHT WO CONTRAST (Not yet reviewed by provider) Interpretation: Performing Lab: Notes/Report: EXAM: MRI KNEE RIGHT WO CONTRAST Performed at: [address] [address] Reason For Referral Reason REFERRAL TO [facility] Diagnosis 1 DDD (degenerative di sc disease), cervical (M50.30) Referral Organization [facility] Referring Provider First Name Eloise Referring Provider Last Name St Stoddard Referring Provider Speciality Orthopedic Surgery Referred Organization Pain clinic General Notes Barb Kendall 2023 10:19:59 AM >, Barb [place]all 04/03/2024 03:22:45 PM >FAXED TO [facility] Referral Priority Routine Reason RAMO................. PLEASE OBTAIN AUTHORIZATION FOR RIGHT SHOULDER MRI - SEE NOTES Diagnosis 1 Acute pain of right shoulder (M25.511) Referral Organization [facility] Referring Provider First Name Norbert Referring Provider Last Name Lamar Referring Provider Speciality Orthopedic Surgery Referred Organization [facility] Referred Address [place], [place] Procedure 1 MRI Joint Upper Ext w/o Dye (30423) General Notes Cinthya Vila 2023 12:11:06 PM >ANTHEM INSURACNE ENDS TUESDAY, Rajni Benton 04/02/2024 04:08:03 PM >PER ROBERTA: The [...] pain of right shoulder (M25.511) Referral Organization [facility] Referring Provider First Name Norbert Referring Provider Last Name Buffalo Referring Provider Speciality Orthopedic Surgery Referred Organization [facility] Referred Address [place], [place] Procedure [address] UPPER EXTREMITY W /DYE (74768) General Notes Rajni Benton 025 01:33:00 PM >PER AVAILITY/DEVOTED, NO AUTH REQUIRED LANI NOTIFIED REF FAXED TO Cadence HOPKINS Monica 04/30/2024 01:50:59 PM > FAXED ORDER Referral Priority Routine Reason RIGHT SHOULDER ASPIR ATION AND CULTURES PLEASE CONTACT PATIENT TO SET UP Diagnosis 1 Acute pain of right shoulder (M25.511) Diagnosis 2 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 Diagnosis 1 Primary osteoarthrit is of right knee (M17.11) Referral Organization [facility] Referring Provider First Name Tomás Referring Provider Last Name Danie Referring Provider Speciality Orthopedic Surgery Referred Organization [facility] Procedure 1 MRI Joint Lower Ext w/o Dye (88919) General Notes Rajni Benton 025 08:45:19 AM >APPROVED PER DEVOTED AUTH #[id number] VALID 11/14/2024-02/14/2025 COPY IN CHART MA NOTIFIED REF FAXED TO [facility], FACILITY WAS ORIGINALLY [facility], FACILITY HAS BEEN CHANGED TO [facility] CALL REF #[id number] WILL TAKE 48 HOURS TO UPDATE, Uma Valladares 11/13/2024 03:06:40 PM >ORDER FAXED Referral Priority Routine Reason APPROVED............ ....................NOT SCHEDULED...................................DEVOTED MCR MRI LUMBAR TO BE DONE AT [facility] Diagnosis 1 Right sided sciatica (M54.31) Referral Organization [facility] Referring Provider First Name Eloise Referring Provider Last Name [facility] Stoddard Referring Provider Speciality Orthopedic Surgery Referred Organization [facility] vipul Referred Address [place], [place], Procedure 1 MRI Lumbar Spine w/o Dye (72057) General Notes Barb Kendall 2024 10:13:59 AM >, Lula Slaughter 12/27/2024 10:18:38 AM > WAITING ON TODAY'S OFFICE NOTE, Lula Slaughter 01/02/2025 11:36:39 AM > DEVOTED ACTIVE AND EFFECTIVE 03/25/24 PER DEVOTED PAYER SPACE. AUTHORIZATION # [id number] APPROVED AND VALID 01/03/25-04/24/25 PER DEVOTED PAYER SPACE. SCANNED INTO CHART AND FAXED TO [place].Deshaun Sara 01/03/2025 10:51:09 AM > faxed Referral Priority Routine Reason RFERRAL FOR [facility] FOR EVAL AND TREAT Diagnosis 1 Lumbar stenosis with neurogenic claudication (M48.062) Referral Organization [facility] Referring Provider First Name Eloise Referring Provider Last Name St Stoddard Referring Provider Speciality Orthopedic Surgery Referred Organization [facility] Referred Address [address],[place], [place],[address], General Notes Barb Kendall 2024 03:39:59 PM >REFERRAL FAXED Referral Priority Routine Reason APPROVED OUTPATIENT...................................03/05/25........................... ........DEVOTED MCR HARDWARE REMOVAL L4-5, L3-4 DECOMPRESSION AND FUSION WITH EXTENSION TO L3 43634, 43696, 00599, [address]450 Diagnos is 1 Spondylolisthesis, lumbar region (M43.16 ) Diagnos is 2 Spinal stenosis, lumbar region without n eurogenic claudication (M48.061) Diagnos is 3 Lumbar radiculopathy (M54.16) Referra l [facility] Referri ng Provide r First Name Eloise Referri ng Provide r Last Name [facility] Stoddard Referri ng Provide r Special ity Orthopedic Surgery [facility] d [facility] Out[facility] Referre d Address [address], [place],[id number],[place] Procedu re 1 Arthrodesis, posterior lumbar, 1 lumbar level (45151) Procedu re 2 Laminectomy, facetectomy and foraminotom y single lumbar (49465) Procedu re 3 Posterior non-segmental instrumentation (06287) Procedu re 4 Autograft for spine surgery only; local obtained from same incision (39448) General Notes Barb [place]all 01/22/2025 08:14:41 AM >, Sukhjinder, Lula 02/01/2025 10:21:29 AM > DEVOTED ACTIVE AND EFFECTIVE 03/25/24 PER DEVOTED PAYER SPACE ON [place]. [place] [address] [place] [address] PER DEVOTED PAYER SPACE. SCANNED INTO CHART. AUTHORIZATION REQUEST SUBMITTED FOR ALL OTHER CODES WITH CLINICALS, PENDING AUTHORIZATION # [id number], Lula Slaughter 02/04/2025 03:20:54 PM > AUTHORIZATION # [id number] APPROVED OUTPATIENT AND VALID 03/05/25-05/25/25 PER FAX BACK FROM DEVOTED. SCANNED INTO CHART. PLEASE CHANGE AND SEND BACK., Barb Kendall 02/05/2025 07:32:27 AM >CHANGE TO OUTPATIENT, Gorge Slaughteryla 02/05/2025 07:33:10 AM > THANK YOU, FAXED TO [facility]. Referra l Priorit y Routine Medications Medication SIG (Take, Route, Frequency, Duration) Notes Start Date End Date Status clonazePAM ActiveetodolacActive Social History Tobacco Use: Social History Observation Description Date Details (start date - stop date) Never Smoker NA - NA AUDIT-C (Standard) Question Answer Notes Did you have a drink containing alcohol in the p ast year? Yes How often did you have six or more drinks on one occasion in the past year?Never (0 point)How many drinks did you have on a typical day when you were drinking in the past year?1 or 2 drinks (0 point)How often did you have a drink containing alcohol in the past year?Monthly or less (1 point)Tobacco Control (Standard) Question Answer Notes Tobacco use: Nonsmoker Problems Problem Type SNOMED Code ICD Code Onset Dates Problem Status W/U Status Risk Notes Problem 084659305 Lumbar radiculopathy (M54.16 ) EsuskhigonyutxtDlderpb814282682Trnjddduqam status (Z98.1)ActiveconfirmedProblem 258251647804533Cbpy, joint, knee, right (M25.561)PnwhlhtfnpxabsnMlhfkfs94249273 Cervical pain (M54.2)XuiumjbycqrcoaqUfojsyv912117733Gtvkasoghepludfap, cervical region (M43.12)ActiveconfirmedProblemAcquired spondylolisthesis (804560982) Spondylolisthesis, lumbar region (M43.16)ActiveconfirmedProblemDisplacement of lumbar intervertebral disc without myelopathy (67102190)Other intervertebral disc displacement, lumbar region (M51.26)CyrehrfghcdekrfShivtbw572379466 Encounter for change or removal of drains (Z48.03)ActiveconfirmedProblem 044214113808183Mqpj term (current) use of opiate analgesic (Z79.891)Active sqssfjhmcSboqled299587246421648Zsolgxn osteoarthritis of right knee (M17.11) YnyxcexlmaxgidsRdvwlox814896809168382Irijxhep of right side (M54.31)Active xynptkhchLjvdwwn868177239Iturcky of right shoulder replacement (Z96.611)Active tgcxjhsqiThsgakn226393450Kdwnmk spondylosis (M47.816)ActiveconfirmedProblem 265064142379918Turgm sided sciatica (M54.31)ReiguhwiiopstugYwmhhoj8854446956 Acute pain of right shoulder (M25.511)HgimghgypwdyzrcHrizdzp32608169Qbpgd cervical disc degeneration at C4-C5 level (M50.321)ActiveconfirmedProblemSpinal stenosis of lumbar region (29452687)Spinal stenosis, lumbar region without neurogenic claudication (M48.061)UbbsagjakxuqcinEeqwstx59277785Jvsyfz stenosis with neurogenic claudication (M48.062)RqmqfssdauwxxeqFrjslxh038512545Qsovyaepg for other orthopedic aftercare (Z47.89)DigxfljyabdgsxvFuojedr967520180 Neuroforaminal stenosis of lumbar spine (M48.061)ActiveconfirmedProblemOther intervertebral disc degeneration, lumbar region with discogenic back pain and lower extremitypain (M51.362)Activeconfirmed Vital Signs Height 5'1 in 01/10/2025 Krjisf761 lbs01/10/2025BMI33.0601/10/2025 Encounters Encounter Location Date Provider Diagnosis [address] [address] 03/30/2024 Brandi Varmaanneliese Spondylolisthesis, cervical region M43.12 ; Other cervical disc degeneration at C4-C5 level M50.321 and Arthrodesis status Z98.1 [facility] [address] [place] [address] [place] [address] 04/02/2024 Norbert Buffalo Acute pain of right shoulder M25.511 [facility] [address] [place] [address] 04/30/2024 Norbert Buffalo Acute pain of right shoulder M25.511 [facility] [address] [facility] [place] [address] 05/30/2024 Henok Rosario Acute pain of right shoulder M25.511 [facility] [address] [place] [address] 06/27/2024 Henok Rosario Encounter for preprocedural laboratory examination Z01.812 ; Acute pain of right shoulder M25.511 ; Encounter for other preprocedural examination Z01.818 ; 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 and History of right shoulder replacement Z96.611 [facility] [address] [place] [address] 07/06/2024 Dank Diglio Sciatica of right si de M54.31 and Lumbar spondylosis M47.816 [facility] Inpatient [address] [place], [place] [id number] 07/07/2024 Dank Diglio Spinal stenosis, lumbar region without neurogenic claudication M48.061 ; Other intervertebral disc displacement, lumbar region M51.26 and Spondylolisthesis, lumbar region M43.16 [facility] Inpatient [address] [place], [place] [id number] 07/08/2024 Selvon Zoran Spinal stenosis, lumbar region without neurogenic claudication M48.061 ; Other intervertebral disc displacement, lumbar region M51.26 ; Spondylolisthesis, lumbar region M43.16 and Other intervertebral disc degeneration, lumbar region with discogenic back pain and lower extremity pain M51.362 [facility] [facility] [address] [place] [address] [place] [address] 07/13/2024 [facility] Encounter for other orthopedic aftercare Z47.89 ; Encounter for change or removal of drains Z48.03 and Arthrodesis status Z98.1 [facility] [address] [facility] [place] [address] [place] [address] 07/27/2024 [facility] Encounter for other orthopedic aftercare Z47.89 and Arthrodesis status Z98.1 [facility] [address] [place] [address] 08/24/2024 [facility] Encounter for other orthopedic aftercare Z47.89 ; Arthrodesis status Z98.1 and correction (current) use of opiate analgesic Z79.891 [facility] [address] [place] [address] 10/01/2024 Tomás Helton Pain, joint, knee, right M25.561 and Primary osteoarthritis of right knee M17.11 [facility] [address] [place] [address] 10/19/2024 Norbert Lewis Aftercare following surgery of the musculoskeletal system Z47.89 [facility] [address] [place] [address] 11/12/2024 Tomás [place] Primary osteoarthrit is of right knee M17.11 [facility] [address] [place] [address] 12/14/2024 Selvon Zoran Greater trochanteric bursitis of right hip M70.61 ; Aftercare following surgery of the musculoskeletal system Z47.89 and Trochanteric bursitis of right hip M70.61 [facility] [address] [place] [address] 12/27/2024 Dank Sams Right sided sciatica M54.31 and Aftercare following surgery of the musculoskeletal system Z47.89 [facility] [address] [place] [address] 01/10/2025 Selvon Zoran Lumbar stenosis with neurogenic claudication M48.062 ; Lumbar radiculopathy M54.16 ; Aftercare following surgery of the musculoskeletal system Z47.89 and Neuroforaminal stenosis of lumbar spine M48.061 [facility] [address] [place] [address] 06/26/2024 [address] [place] [address]/08/[address] [place] [address]/[address] [place] [address]/[facility] following surgery of the musculoskeletal system Z47.89[address] [place] [address]/10/2024Steven PalteSpondylolisthesis, lumbar region M43.16 ; Spinal stenosis, lumbar region without neurogenic claudication M48.061 and Aftercare following surgery of the musculoskeletal system Z47.[address] [place] [address] [place] [address]/[address] [place] [address] 12/17/20[address] [place] [address]/06/20[address] [place] [address]/[address] [place] [address]/[address] [place] [address]/[facility] Ass[facility] Encounter Date Diagnosis (ICD Code) Assessment Notes Treatment Notes Treatment Clinical Notes Section Notes 03/30/2024 Spondylolisthesis, cervical mat on (ICD-10 - M43.12) 1. C3-4 dynamic anterolisthesis 2. C4-5 DDD 3. Prior C5-6 fusion 4. Prior C6-7 disc replacement 03/30/2024Other cervical disc degeneration at C4-C5 level (ICD-10 - M50.321) 1. C3-4 dynamic anterolisthesis 2. C4-5 DDD 3. Prior C5-6 fusion 4. Prior C6-7 disc replacement 4Acute pain of right shoulder (ICD-10 - M25.511)5Acute pain of right shoulder (ICD-10 - M25.511)5Acute pain of right shoulder (ICD-10 - M25.511)Right shoulder pain status post anatomic total shoulder arthroplasty with likely subscapularis emjcshb0106/27/2024Encounter for preprocedural laboratory examination (ICD-10 - Z01.812)Right painful total shoulder arthroplasty with subscapularis aawcmvk90/05/2025Acute pain of right shoulder (ICD-10 - M25.511)Right painful total shoulder arthroplasty with subscapularis jmqsflr3507/06/2024Sciatica of right side (ICD-10 - M54.31) 1. L4-5 spondylolisthesis, grade 1 2. Right sciatica 3. Prior lumbar decompression 07/06/2024Lumbar spondylosis (ICD-10 - M47.816) 1. L4-5 spondylolisthesis, grade 1 2. Right sciatica 3. Prior lumbar decompression 07/07/2024Other intervertebral disc displacement, lumbar region (ICD-10 - M51.26)07/07/2024Spinal stenosis, lumbar region without neurogenic claudication (ICD-10 - M48.061)08/24/2024rthrodesis status (ICD-10 - Z98.1)1. 6 weeks s/p L3-5 decompression and L4-S1 zhkgcj1308/24/2024Encounter for other orthopedic aftercare (ICD-10 - Z47.89)1. 6 weeks s/p L3-5 decompression and L4-S1 fusion 10/01/2024Pain, joint, knee, right (ICD-10 - M25.561)Right knee OAM10/01/2024 Primary osteoarthritis of right knee (ICD-10 - M17.11)Right knee OAM12/14/2024 Aftercare following surgery of the musculoskeletal system (ICD-10 - Z47.89) Carroll, a female patient approximately 6 months post L3-L5 spinal fusion, presents with worseningpain and numbness in the right leg after [...] trochanter elicits pain, consistent with greater trochanteric bursitis.X-rays of the lumbar spine show good overall alignment at L4-L5 with no complications from hardwareor misplaced screws. The primary diagnosis is right greater trochanteric bursitis, with the pain likely originating from the hip rather than the back. 12/14/2024Greater trochanteric bursitis of right hip (ICD-10 - M70.61) [place], a female patient approximately 6 months post L3-L5 spinal fusion, presents with worseningpain and numbness in the right leg after [...] trochanter elicits pain, consistent with greater trochanteric bursitis.X-rays of the lumbar spine show good overall alignment at L4-L5 with no complications from hardwareor misplaced screws. The primary diagnosis is right greater trochanteric bursitis, with the pain likely originating from the hip rather than the back. 12/27/2024ftercare following surgery of the musculoskeletal system (ICD-10 - Z47.89)1. 6 months status post L3-5 decompression and L4-5 fusion with complaints of persistent right wdyulogf89/04/2025Right sided sciatica (ICD-10 - M54.31)1. 6 months status post L3-5 decompression and L4-5 fusion with complaints of persistent right jbpkhdeg21/18/2025Lumbar radiculopathy (ICD-10 - M54.16) 1. Right L3-4 foraminal stenosis with radiculopathy Supporting findings: MRI showing bone spur causing severe foraminal stenosis at L3-4 on right side Right leg radicular pain extending to foot Right iliopsoas weakness (4-5/5 strength) Pain localized to anterior region consistent with L3-4 nerve distribution Symptoms worse than prior to previous L4-5 surgery Differential diagnoses: Hardware-related pain, adjacent segment disease 2. Status post L4-5 laminectomy and fusion with good hardware positioning Supporting findings: MRI shows screws and hardware in appropriate position L4-5 level shows adequate decompression without nerve compression 01/10/2025Lumbar stenosis with neurogenic claudication (ICD-10 - M48.062) 1. Right L3-4 foraminal stenosis with radiculopathy Supporting findings: MRI showing bone spur causing severe foraminal stenosis at L3-4 on right side Right leg radicular pain extending to foot Right iliopsoas weakness (4-5/5 strength) Pain localized to anterior region consistent with L3-4 nerve distribution Symptoms worse than prior to previous L4-5 surgery Differential diagnoses: Hardware-related pain, adjacent segment disease 2. Status post L4-5 laminectomy and fusion with good hardware positioning Supporting findings: MRI shows screws and hardware in appropriate position L4-5 level shows adequate decompression without nerve compression 07/30/2024Spondylolisthesis, lumbar region (ICD-10 - M43.16)07/30/2024Spinal stenosis, lumbar region without neurogenic claudication (ICD-10 - M48.061) 07/27/2024rthrodesis status (ICD-10 - Z98.1)1. 3 weeks s/p L3-5 decompression with L4-S1 iddydl1207/27/2024Encounter for other orthopedic aftercare (ICD-10 - Z47.89)1. 3 weeks s/p L3-5 decompression with L4-S1 znypbp3407/20/2024ftercare following surgery of the musculoskeletal system (ICD-10 - Z47.89)10/19/2024 Aftercare following surgery of the musculoskeletal system (ICD-10 - Z47.89)1. 3 months status post L3-L5 decompression L4-L5 owmkqx2307/13/2024Encounter for change or removal of drains (ICD-10 - Z48.03)1.5 days s/p L3-5 decompression/lwuldu1807/13/2024Encounter for other orthopedic aftercare (ICD-10 - Z47.89)1.5 days s/p L3-5 decompression/rfjxbg5707/08/2024Other intervertebral disc displacement, lumbar region (ICD-10 - M51.26)07/08/2024Spinal stenosis, lumbar region without neurogenic claudication (ICD-10 - M48.061)11/12/2024Primary osteoarthritis of right knee (ICD-10 - M17.11)right knee internal derangement right knee wocfvuvuj41/16/2025Spondylolisthesis, lumbar region (ICD-10 - M43.16) 07/30/2024ftercare following surgery of the musculoskeletal system (ICD-10 - Z47.89)07/13/2024rthrodesis status (ICD-10 - Z98.1)1.5 days s/p L3-5 decompression/fzgith6703/30/2024rthrodesis status (ICD-10 - Z98.1) 1. C3-4 dynamic anterolisthesis 2. C4-5 DDD 3. Prior C5-6 fusion 4. Prior C6-7 disc replacement 01/10/2025ftercare following surgery of the musculoskeletal system (ICD-10 - Z47.89) 1. Right L3-4 foraminal stenosis with radiculopathy Supporting findings: MRI showing bone spur causing severe foraminal stenosis at L3-4 on right side Right leg radicular pain extending to foot Right iliopsoas weakness (4-5/5 strength) Pain localized to anterior region consistent with L3-4 nerve distribution Symptoms worse than prior to previous L4-5 surgery Differential diagnoses: Hardware-related pain, adjacent segment disease 2. Status post L4-5 laminectomy and fusion with good hardware positioning Supporting findings: MRI shows screws and hardware in appropriate position L4-5 level shows adequate decompression without nerve compression 08/24/2024Long term (current) use of opiate analgesic (ICD-10 - Z79.891)1. 6 weeks s/p L3-5 decompression and L4-S1 aogltn1907/07/2024Spondylolisthesis, lumbar region (ICD-10 - M43.16)06/27/2024Encounter for other preprocedural examination (ICD-10 - Z01.818)Right painful total shoulder arthroplasty with subscapularis vfltstp2606/27/2024arrier or suspected carrier of Methicillin resistant Staphylococcus aureus (ICD-10 - Z22.322)Right painful total shoulder arthroplasty with subscapularis matddrl6112/14/2024Trochanteric bursitis of right hip (ICD-10 - M70.61) [place], a female patient approximately 6 months post L3-L5 spinal fusion, presents with worseningpain and numbness in the right leg after [...] trochanter elicits pain, consistent with greater trochanteric bursitis.X-rays of the lumbar spine show good overall alignment at L4-L5 with no complications from hardwareor misplaced screws. The primary diagnosis is right greater trochanteric bursitis, with the pain likely originating from the hip rather than the back. 01/10/2025Neuroforaminal stenosis of lumbar spine (ICD-10 - M48.061) 1. Right L3-4 foraminal stenosis with radiculopathy Supporting findings: MRI showing bone spur causing severe foraminal stenosis at L3-4 on right side Right leg radicular pain extending to foot Right iliopsoas weakness (4-5/5 strength) Pain localized to anterior region consistent with L3-4 nerve distribution Symptoms worse than prior to previous L4-5 surgery Differential diagnoses: Hardware-related pain, adjacent segment disease 2. Status post L4-5 laminectomy and fusion with good hardware positioning Supporting findings: MRI shows screws and hardware in appropriate position L4-5 level shows adequate decompression without nerve compression 07/08/2024Other intervertebral disc degeneration, lumbar region with discogenic back pain and lower extremitypain (ICD-10 - M51.362)06/27/2024History of right shoulder replacement (ICD-10 - Z96.611)Right painful total shoulder arthroplasty with subscapularis acjczuq8703/30/2024Other Plan established by Dr. Veliz. Patient evaluated [...] diagnostic plan set forth and all questions wereanswered to the patient's satisfaction. Thanks once again. If we can be of further service to your patients with disorders of the spine, cervical, thoracic, or lumbar, please do not hesitate to contact Dr. Veliz. Best regards, 1. C3-4 dynamic anterolisthesis 2. C4-5 DDD 3. Prior C5-6 fusion 4. Prior C6-7 disc replacement 04/02/2024Other For her right shoulder pain I recommended an MRI scan to evaluate for a possible subscap tear. If this is not diagnostic we would consider a CT arthrogram. She will follow-up once the study is complete. Import medication 04/30/2024Other For her right shoulder pain after total shoulder arthroplasty she prefers to follow-up at [facility] and not the [facility]. I recommended a CT arthrogram to evaluate the integrity of her subscapularis tendon. She will follow-up with Dr. Rosario for further treatment recommendations. Import medication 05/30/2024OtherI reviewed the patient's clinical exam findings. 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 This is probably been present since the original surgery with failure of the subscap to heal postoperatively. This islikely causing her anterior shoulder pain. However I [...] visit. Patient understands and agrees with the plan.Right shoulder pain status post anatomic total shoulder arthroplasty with likely subscapularis hxqrivw1006/27/2024Other Operative and nonoperative treatments were reviewed in [...] the plan. I will see her back 2weeks postoperative.Right painful total shoulder arthroplasty with subscapularis iqhpzsg7507/06/2024Other Plan established by Dr. Veliz. At this [...] The patient is very much in agreement withthe treatment and/or diagnostic plan set forth and all questions were answered to the patient's satisfaction. Thanks once again. If we can be of further service to your patients with disorders of the spine, cervical, thoracic, or lumbar, please do not hesitate to contact Dr. Veliz. Best regards, 1. L4-5 spondylolisthesis, grade 1 2. Right sciatica 3. Prior lumbar decompression 07/13/2024Other There is about 60 mL of serosanguineous [...] Veliz. Best regards, 1.5 days s/p L3-5 decompression/aqcjvk1007/27/2024Other Plan established by Dr. Veliz. Patient evaluated [...] 3 weeks s/p L3-5 decompression with L4-S1 cpgfqy7108/24/2024Other Plan established by Dr. Veliz. Patient evaluated [...] 6 weeks s/p L3-5 decompression and L4-S1 rkexud9310/01/2024OtherDiscussion had today with the patient regarding her right knee pain. She does have medial compartment narrowing. We discussed treatment options. She would like to try corticosteroid injection. Injection performed in the office today. Patient tolerated quite well. Will see her back in the office in 6 weeksRight knee OAM 10/19/2024Other Plan established by Dr. Veliz. At this [...] 3 months status post L3-L5 decompression L4-L5 lvgmdy8811/12/2024Other Discussion had today with Carroll regarding her [...] for meniscal tear. Follow-up upon completion of MRIright knee internal derangement right knee lmiwkjpsd03/22/2025Other Plan - Administer steroid injection to the [...] months post L3-L5 spinal fusion, presents with worseningpain and numbness in the right leg after [...] trochanter elicits pain, consistent with greater trochanteric bursitis.X-rays of the lumbar spine show good overall alignment at L4-L5 with no complications from hardwareor misplaced screws. The primary diagnosis is right greater trochanteric bursitis, with the pain likely originating from the hip rather than the back. 12/27/2024Other Plan established by Dr. Veliz. At this [...] L4-5 fusion with complaints of persistent right hspomqln92/18/2025Other Plan 1. Right L3-4 foraminal stenosis with [...] prior to previous L4-5 surgery Differential diagnoses: Hardware-related pain, adjacent segment disease 2. Status post L4-5 laminectomy and fusion with good hardware positioning Supporting findings: MRI shows screws and hardware in appropriate position L4-5 level shows adequate decompression without nerve compression Plan Of Treatment Pending Test Test Name Order Date Lumbar spine, 4v flex ext - 18443 2024 Lumbar spine 2v ap and lat - 66935 07/27 Lumbar spine 2v ap and lat - 51733 10/19 Lumbar spine 2v ap and lat - 59620 12/14 Cell count 05/30/2024 Cervical spine,ap,lat,flex,ext - 70588 1 05/31/2023 MRI : Knee W/O Contrast Right - 45473 EKG 06/27/2024 CBC 01/10/2025 Crystals 05/30/2024 HGB [...] CONTRAST 12/01/2024 SCC- KNEE 4 VIEW RIGHT 99271 10/01/2024 FACET INJECTION 03/30/2024 ESR, CRP 05/30/2024 Aspiration for cultrues of Right shoulde r 05/30/2024 MRI : Lumbosacral Spine W/O Contrast - 7 8 12/27/2024 Next Appt Details Provider Name:Eloise Mitchell [facility], 02/28/2025 09:10:00 AM, [address] [place] [address], [phone], Provider Name:Eloise Mitchell [facility], 03/05/2025 10:30:00 AM, [address] [place] [address], [phone], Provider Name:Eloise Mitchell [facility], 04/11/2025 10:10:00 AM, [address] [place] [address], [phone], Insurance Providers Payer Name Payer Address Payer Phone Subscriber Number Group Number Insured Name Patient Relationship to Insured Coverage Start Date Coverage End Date Medicare Fashion.me [facility] [address] [place] [phone] D6YS DARHONDA FITZGERALDelf - patient is the [id number] 2024NTHEM BCBSPO [address] [place] [id number], RHONDAelf - patient is the [id number] 2024MedicarePO [address] [address] [place] [address] [phone], PATRICIASelf - patient is the insured Medications Administered Medication Instructions Date of Administration Dosage Notes BUPIVACAINE mLDepo-Ryfhwy76 qYfloybiich19/22/20255 mL Medical (General) History Medical History History ICD Code High Blood Pressure DiabetesThyroid diseaseOsteoporosisOsteoarthritisDepressionHealthcare worker Sleep apnea- Lower back fusion (L4-L5) approximately 6 months ago- Right lower leg numbness, present at least 3 months ago- Greater trochanteric bursitis of the right hip- Previous lumbar surgery with L4-5 fusion- History of steroid injections in knee and hip without benefitSurgical History Surgery Date(Month/Year) - L4-5 laminectomy with posterior rods a nd pedicle screws - L3-L5 spinal fusion approximately 6 months agoL3-5 laminectomy, L4-5 PSF 06/2024knee scopesbilateral shoulder replacementlow back fusionCervical fusionx2 Hysterectomy
--- OUTSIDE RECORDS SUMMARY | 2025-02-16 19:13 | XMS_ITS | Clinical Summary ---
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 Role Phone Robert Cruz Primary Care Provider [phone] Allergies Active AllergyReactionsCriticalityNoted DateCommentsPovidone-IodineHives,Itching 10/20/2016Contrast DhyDngvvejmepnQjtk89/07/2011Meperidine (Pf)Other: See KuifvxdvWjodts79/07/2011 hypotension DheOther: See Apkgtsst81/24/2017 Respiratory arrest Hydromorphone (Bulk)Other: See Lizhvqxu33/24/2017 resiratory arrest Sumatriptan OgrgcezawLayntGpsmcp87/07/2011Influenza Vaccine Tri-Sp 09-10Hives Zmnhng0609/29/20100537WcxogPrxkpkwfdhlBypwud43/07/2011 Medications MedicationSigDispense QuantityRefillsLast FilledStart DateEnd DateStatus levothyroxine (SYNTHROID) 125 mcg ORAL tablet Take 125 mcg by mouth once daily.Active atenolol 50 mg ORAL tablet Take 50 mg by mouth once daily.Active CLONAZEPAM (KLONOPIN ORAL) Take 1.5 mg by mouth daily at bedtime.09/29/2010ctive pravastatin 20 mg ORAL tablet Take 20 mg by mouth daily at bedtime.09/29/2010ctive citalopram (CELEXA) 40 mg tablet Take 40 mg by mouth once daily.Active nabumetone (RELAFEN) 500 mg tablet Take 500 mg by mouth twice daily.Active glimepiride (AMARYL) 4 mg tablet Take 4 mg by mouth daily with breakfast.Active ondansetron (ZOFRAN, HYDROCHLORIDE,) 4 mg tablet Take 4 mg by mouth every 8 hours as needed for Nausea/Vomiting.Active naproxen sodium (ALEVE) 220 mg tablet Take 220 mg by mouth twice daily with meals.04/26/2018Active metFORMIN (GLUCOPHAGE) 500 mg tablet Take 500 mg by mouth daily before breakfast.Active rizatriptan (MAXALT SPECIAL EDUCATION DIRECTOR) 10 mg disintegrating tablet DISSOLVE 1 TABLET IN MOUTH NEEDED FOR HEADACHE, MAY REPEAT IN 2 HOURS IF PTBRVB395/07/2018Active mupirocin (BACTROBAN) 2 % ointment Apply 0.5 inch with cotton swab (Q-tip) to each nostril in the morning and evening for 5 days priorto and including day of surgery. 22 g 06/07/2018Active calcium phosphate dibas/vit D3 (VITAMIN D, WITH CALCIUM, ORAL) Take 800 mg by mouth once daily.Active docusate sodium (COLACE) 100 mg capsule Take 1 capsule by mouth twice daily. 50 capsule Active aspirin, enteric coated (ECOTRIN LOW STRENGTH) 81 mg EC tablet Take 1 tablet by mouth twice daily for 14 days. 28 tablet 06/20/2018Active amoxicillin (POLYMOX, AMOXIL) 500 mg capsule Take 4 capsules 1 hour prior to procedure 8 capsule Active Active Problems ProblemNoted DateDiagnosed DateType 2 diabetes mellitus without complication, without long-term current use of rohbqaj2406/07/2018OSA (obstructive sleep apnea) 06/07/2018Mixed pkgwyvpzpjzykt20/13/2019Glenohumeral arthritis, right04/26/2018 Status post replacement of right shoulder joint04/26/2018Status post total shoulder nqxqlgnaufxe90/09/2017Glenohumeral fxbirdusm51/24/2017Primary osteoarthritis of left bmeuuhwe23/24/2017 Family History Medical HistoryRelationCommentsCarotid DiseaseFatherDiabetesFatherHeartFather HypertensionFatherBreast CancerMaternal GrandmotherArthritisMothercholesterol MotherDiabetesPaternal GrandmotherStrokePaternal GrandmotherRelationStatus CommentsFatherMaternal GrandmotherMotherPaternal Grandmother Social History Tobacco UseTypesPacks/DayYears UsedDateSmoking Tobacco: NeverSmokeless Tobacco: NeverAlcohol UseStandard Drinks/WeekCommentsYes0 (1 standard drink = 0.6 oz pure alcohol)a few times a yearPHQ-2AnswerDate RecordedPHQ2 Yiksa987Area Deprivation IndexAnswerDate RecordedNational Score (1-100), lower number is lower riskNot on file04/02/2020State Score (1-10), lower number is lower riskNot on file04/02/2020Data from: https://www.neighborhoodatlas.[facility]/. Last address used for calculationNot on file04/02/2020CommentsNoSex and Gender InformationValueDate RecordedSex Assigned at BirthNot on fileLegal Sex Jtrphq0603/26/2012 10:25 AM ESTGender IdentityNot on fileSexual OrientationNot on fileOccupationIndustryJob Start DateJob End DateRN - ambulatory surgeryNot on fileNot on fileNot on file Last Filed Vital Signs Vital SignReadingTime TakenCommentsBlood Yywmslip979/47006/20/2018 3:44 PM EST Ghysu482106/20/2018 3:44 PM WQBEoorcwauytt00 ??C (98.6 ??F)06/20/2018 3:44 PM EST Respiratory Kusc042006/20/2018 3:44 PM ESTOxygen Frwpcbejli79%06/20/2018 3:44 PM ESTInhaled Oxygen Concentration--Kzkmgu73.6 kg (182 lb)06/20/2018 8:38 AM EST Uxifhl196.5 cm (5' 2 )06/07/2018 10:31 AM ESTBody Mass Index33.29006/07/2018 10:31 AM EST Plan of Treatment Health MaintenanceDue DateLast DoneCommentsAnxiety Vpzikgmgg98/20/1977Depression Gsrvdkejq33/20/1977HIV Jlczjgjti64/20/1977Hepatitis C Pjtmbzcql02/20/1977 DTaP,Tdap,Td Vaccine (1 - Tdap)1978Mammogram Xamavncsb45/20/1999CT Zucwhjwdhucv89/20/2004Cologuard (FIT-DNA)04/13/20045573Fgwrnegpgnd13/20/2004 Colorectal Cancer Ufcnbnvqi76/20/2004Fecal Occult Blood2004Lipid Screening 04/13/20041186Vytzbgdpsdwno66/20/2004Pneumococcal Vaccine: 50+ (1 of 1 - PCV) 2009Shingrix Vaccine (1 of 2)2009Diabetes Khfuxdibx47/13/2022 06/07/2018, 10/20/2016Bone Density Uveazmxcy32/20/2024dvance Directive Uksltjevnp70/01/2025ovid-19 Vaccine (1 - 2024- season)2024Influenza Vaccine (#1)2024RSV Vaccine (1 - 1-dose 75+ series)2034 Medical Devices ImplantedTypeAreaManufacturerDevice IdentifierShelf Expiration DateModel / Serial / LotCement Simplex P Speedset Bone Radiopaque Sterile - [id number] Implanted:Qty: 1 on 06/20/2018 by [facility] / PuttyRight: Bone - ShoulderSTRY-HOW [id number]/[id number] / / [id number]-Horg Implant - [id number] Implanted:Qty: 1 [facility]18/2016 [facility] Bone - Shoulder DJO [id number] / / [id number]-Hyst Implant - [id number] Implanted:Qty: 1 on 11/18/2016 [facility]plantLeft: Bone - Shoulder DJO [id number] / / [id number] Poly Pegged Glenoid Implanted:Qty: 1 on 11/18/2016 [facility]: Bone - Shoulder DJO INC08/17/[id number] / [id number] / [id number] Humeral Stem, [id number] Implanted:Qty: 1 on 06/20/2018 by [facility]ila [facility]ars[facility] MD at [facility] ImplantRight: Bone - ShoulderDJO [id number] / / [id number] Humeral Head [id number] Implanted:Qty: 1 on 06/20/2018 by [facility]ila [facility]ars[facility] MD at [facility] ImplantRight: Bone - ShoulderDJO [id number] / / [id number] Hum Altivate - [id number] Implanted:Qty: 1 on [facility]/18/[address] [facility] Bone - ShoulderDJO INC//[id number] / / [id number] Ru Allpoly 42mm Eplus - [id number] Implanted:Qty: 1 on 06/20/2018 by Avila Garsia MD at [facility]: Bone - ShoulderDJO INC//[id number] / / [id number] Hum Altivate - [id number] Implanted:Qty: 1 on 06/20/2018 by Avila Garsia MD at [facility]: Bone - ShoulderDJO INC06/06/[id number] / / [id number] Procedures Procedure NamePriorityDate/TimeAssociated DiagnosisCommentsBASIC METABOLIC PANEL Kwekeui2906/07/2018 11:00 AM EST Glenohumeral arthritis, right from Last 3 Months or Most Recently Relevant to Health Maintenance Results * (ABNORMAL) BASIC METABOLIC PNL (06/07/2018 11:00 AM EST)ComponentValueRef RangeTest MethodAnalysis TimePerformed AtPathologist GsozmechgUxpfqco167(H)74 - 99 mg/dL06/07/2018 8:31 PM ESTCOSHOCTON REG[facility]AL [facility] MAIN LABORATORYComment: The [place] Diabetes Association (ADA) provides guidance for cutoff [...] Standards of Medical Care in Diabetes 2016, [place] Diabetes Association. Diabetes Care. 2016.39(Suppl 1). BUN24(H)7 - 21 mg/dL06/07/2018 8:31 PM [facility] Creatinine0.910.58 - 0.96 mg/dL06/07/2018 8:31 PM [facility] JQRYALBJGBBoliyt463310 - 144 mmol/L06/07/2018 8:31 PM [facility] LABORATORYPotassium5.13.7 - 5.1 mmol/L06/07/2018 8:31 PM [facility] KCUAQROOMYHwyyovds17753 - 105 mmol/L06/07/2018 8:31 PM [facility] EYKPSFBRILMO46581 - 30 mmol/L06/07/2018 8:31 PM [facility] LABORATORYAnion Rzh712 - 18 mmol/L06/07/2018 8:31 PM [facility] LABORATORYCalcium9.68.5 - 10.2 mg/dL06/07/2018 8:31 PM [facility] LABORATORYeGFR->6002 8:31 PM [facility] LABORATORYeGFR-All Other Races>60.06/07/2018 8:31 PM [facility] LABORATORYComment: eGFR (Estimated GFR) Units of measure: mL/min/1.73 [...] eGFR may not accurately reflect actual GFR. Specimen (Source)Anatomical Location / LateralityCollection Method / Volume Collection TimeReceived TimeBlood specimen (specimen)BLOOD SPECIMEN / Unknown 06/07/2018 11:00 AM EST06/07/2018 11:03 AM EST Narrative Authorizing ProviderResult TypeResult StatusAvila Garsia MDLABORATORYFinal ResultPerforming OrganizationAddressCity/State/ZIP CodePhone Number [facility] [address] [place] [address] from Last 3 Months or Most Recently Relevant to Health Maintenance Insurance Advance Directives TypeDate RecordedPatient RepresentativeExplanationAdvance Directive(s)11/18/2016 6:54 AM Care Teams Team MemberRelationshipSpecialtyStart DateEnd Date Robert Cruz DO [address] [place] [address] PCP - GeneralInternal Medicine05/17/18
--- OUTSIDE RECORDS SUMMARY | 2025-02-16 19:13 | XMS_ITS | Clinical Summary ---
Author Organization [facility] Address [id number] [address] [id number] Care Team Providers Care Telephone Services Sales Representative Name Role Phone Unavailable Primary Care Provider Unavailabl e Social History Tobacco UseTypesPacks/DayYears UsedDateSmoking Tobacco: Never AssessedChildcare AnswerDate CjutatcpUnljxhowuEgfeogv70/10/2019EmploymentAnswerDate Recorded BcmvqrogpuVtdsjkh44/10/2019CommentsUnknownSex and Gender Information ValueDate RecordedSex Assigned at BirthNot on fileLegal BodWecitb52/04/2015 11:59 AM EDTGender IdentityNot on fileSexual OrientationNot on file Plan of Treatment Not on file Medical Devices Not on file
--- NOTE | 2025-02-16 19:28 | ECG_ITS ---
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 Measurements Intervals [place] Rate: 86 P: 70 FL: 160 QRS: 73 QRSD: 92 T: 90 QT: 390 QTc: 433 Interpretive Statements 1100 Sinus rhythm 4068 Nonspecific Twave abnormality 9130 borderline ECG Compared to ECG 06/27/2024 12:18:22 Sinus bradycardia no longer present Electronically Signed On 02-16-2025 21:51:07 EDT by RISHI SPENCE M.D.
--- NOTE | 2025-02-16 19:28 | ED.GENADUL1 ---
HPI HPI - General Adult General Chief complaint: Weakness Stated complaint: Sugar Low Time Seen by Provider: 02/16/25 19:17 Mode of arrival: Wheelchair History of Present Illness HPI narrative: past history NIDDM and chronic back pain. Has upcoming surgery planned for her back next month. Takes Tramadol for pain. Today before going to [facility] she was ill at home. Was sweating with hair wet. [facility] well enough to go to [facility]. she felt her problem was hypoglycemia and ate before going to [facility]. At [facility] again did not feel well. to her for ice cream and she ate some on the way here. Denies pain. Has nausea and is shaky . No history of anxiety. No fever or chills. Denies dyspnea Related Data Home Medications ?Medication ?Instructions ?Recorded ?Confirmed atenolol 50 mg tablet 50 mg PO DAILY 09/28/22 02/16/25 citalopram 40 mg tablet (Celexa) 40 mg PO DAILY 09/28/22 02/16/25 glimepiride 4 mg tablet 4 mg PO DAILY 09/28/22 02/16/25 levothyroxine 125 mcg tablet 125 mcg PO DAILY 09/28/22 02/16/25 (Synthroid) metformin 500 mg tablet 500 mg PO BID 09/28/22 02/16/25 pravastatin 40 mg tablet 40 mg PO DAILY 09/28/22 02/16/25 clonazepam 1 mg tablet (Klonopin) 1.5 mg PO DAILY 05/18/23 02/16/25 rizatriptan 10 mg tablet (Maxalt) 10 mg PO Q2H PRN migraine headache 05/18/23 02/16/25 etodolac 500 mg tablet 500 mg PO BID 05/09/24 02/16/25 pregabalin 100 mg capsule (Lyrica) 100 mg PO BID 01/16/25 02/16/25 olmesartan 20 mg tablet 20 mg 01/28/25 bupropion HCl (smoking deter) 150 mg PO 02/16/25 mg tablet,12 hr sustained-release(smoking deterrent) Previous Rx's ?Medication ?Instructions ?Recorded tizanidine 4 mg capsule 4 mg PO TID PRN muscle spasticity 02/06/25 #90 caps Allergies Allergy/AdvReac Type Severity Reaction Status Date / Time calcium (From DHEA) Allergy Severe respirator Verified 02/16/25 19:17 arrest calcium carbonate (From DHEA) Allergy Severe respirator Verified 02/16/25 19:17 arrest prasterone (DHEA) (From DHEA) Allergy Severe respirator Verified 02/16/25 19:17 arrest iodine Allergy Intermediate Unknown Verified 02/16/25 19:17 latex Allergy Intermediate Unknown Verified 02/16/25 19:17 meperidine (From Demerol) Allergy Intermediate Unknown Verified 02/16/25 19:17 sumatriptan (From Imitrex) Allergy Intermediate Unknown Verified 02/16/25 19:17 Opioid HPI Opioid Management Most Recent Opioid Data: Last Pain Scale 7 Today, 19:11 Ur Phencyclidine Scrn, (NEGATIVE) Negative 12/17/22, 11:00 Review of Systems ROS Status of ROS 10 or more systems reviewed and unremarkable except as noted in history and below [facility] Medical History Shoulder pain, right ?M25.511 - Pain in right shoulder (ICD-10) Osteoarthritis ?M19.90 - Unspecified osteoarthritis, unspecified site (ICD-10) Low back pain ?M54.50 - Low back pain, unspecified (ICD-10) Neck pain ?M54.2 - Cervicalgia (ICD-10) TIA (transient ischemic attack) ?G45.9 - Transient cerebral ischemic attack, unspecified (ICD-10) Hearing deficit ?H91.90 - Unspecified hearing loss, unspecified ear (ICD-10) Acid reflux ?K21.9 - Gastro-esophageal reflux disease without esophagitis (ICD-10) Obesity ?E66.9 - Obesity, unspecified (ICD-10) Diabetes ?E11.9 - Type 2 diabetes mellitus without complications (ICD-10) Hypothyroid ?E03.9 - Hypothyroidism, unspecified (ICD-10) Sleep apnea ?G47.30 - Sleep apnea, unspecified (ICD-10) Irregular heart beat ?I49.9 - Cardiac arrhythmia, unspecified (ICD-10) High cholesterol ?E78.00 - Pure hypercholesterolemia, unspecified (ICD-10) Hypertension ?I10 - Essential (primary) hypertension (ICD-10) Surgical History H/O cosmetic surgery ?Z98.890 - Other specified postprocedural states (ICD-10) H/O thyroidectomy ?E89.0 - Postprocedural hypothyroidism (ICD-10) H/O lumbosacral spine surgery ?Z98.890 - Other specified postprocedural states (ICD-10) H/O operation on finger ?Z98.890 - Other specified postprocedural states (ICD-10) H/O carpal tunnel repair ?Z98.890 - Other specified postprocedural states (ICD-10) H/O arthroscopic knee surgery ?Z98.890 - Other specified postprocedural states (ICD-10) H/O: hysterectomy ?Z90.710 - Acquired absence of both cervix and uterus (ICD-10) Hx of appendectomy ?Z90.49 - Acquired absence of other specified parts of digestive tract (ICD-10) H/O exploratory laparotomy ?Z98.890 - Other specified postprocedural states (ICD-10) H/O: ?Z98.891 - History of uterine scar from previous surgery (ICD-10) H/O shoulder surgery ?Z98.890 - Other specified postprocedural states (ICD-10) H/O cervical spine surgery ?Z98.890 - Other specified postprocedural states (ICD-10) S/P cataract extraction ?Z98.49 - Cataract extraction status, unspecified eye (ICD-10) Social History Little interest or pleasure in doing things: not at all Feeling down, depressed, or hopeless: not at all Exam Constitutional Vital Signs, click to edit/add: Last Vital Signs Temp 97.9 F 02/16/25 19:11 Pulse 97 H 02/16/25 21:22 Resp 20 02/16/25 21:22 BP 148/71 H 02/16/25 21:22 Pulse Ox 97 02/16/25 21:22 O2 Del Method Room Air 02/16/25 19:11 Common normals: average body habitus, oriented x3, no limitations, healthy appearing, alert and well nourished Exam limitations: other limitations (holding emesis basin) HENMT Common normals: normocephalic and head/scalp atraumatic Eye Common normals: PERRL, EOMs intact bilaterally and conjunctivae normal Respiratory Common normals: normal respiratory effort, no retractions, no use of accessory muscles and clear to auscultation bilaterally Cardio Common normals: regular rate, regular rhythm, S1 normal heart sound and S2 normal heart sound GI Common normals: Normal to inspection, nondistended, normoactive bowel sounds present, soft to palpation and non-tender Extremity Common normals: normal to inspection and full ROM Neuro Common normals: oriented x3, CN's II-XII intact bilaterally, moves all extremities and no focal motor deficits Psych Appearance: grossly normal Course Vital Signs Vital signs: Vital Signs Temperature 97.9 F 02/16/25 19:11 Pulse Rate 76 02/16/25 19:11 Respiratory Rate 20 02/16/25 19:11 Blood Pressure 150/74 H 02/16/25 19:11 Pulse Oximetry 100 02/16/25 19:11 Oxygen Delivery Method Room Air 02/16/25 19:11 Temperature 97.9 F 02/16/25 19:11 Pulse Rate 97 H 02/16/25 21:22 Respiratory Rate 20 02/16/25 21:22 Blood Pressure 148/71 H 02/16/25 21:22 Pulse Oximetry 97 02/16/25 21:22 Oxygen Delivery Method Room Air 02/16/25 19:11 Medical Decision Making MDM Narrative Medical decision making narrative: patient presents with recurrent nausea, diaphoresis with nausea and vomiting. No pain. Troponin normal. EKG with nonspecific T changes. She is diabetic and bicarb WNL. lactic acid returned to normal after hydration and nausea resolved with combination of benadryl and reglan. She is feeling bettr and discharged home with Reglan and is to follow up with her doctor Lab Data Labs: Lab Results 02/16/25 02/16/25 02/16/25 Range/Units 19:12 19:35 20:30 WBC 8.5 (4.0-11.0) 10^3/uL RBC 4.63 (4.20-5.40) 10^6/uL Hgb 13.3 (12.0-16.0) g/dL Hct 39.8 (36.0-48.0) % MCV 86.0 (81.0-99.0) fL MCH 28.7 (26.7-34.0) pg MCHC 33.4 (29.9-35.2) g/dL RDW 13.1 (11.0-15.0) % Plt Count 248 (150-450) 10^3/uL MPV 10.4 (9.5-13.5) fL Neut % (Auto) 70.7 (43.0-75.0) % Lymph % (Auto) 20.6 (20.5-60.0) % Wallace % (Auto) 7.2 (1.7-12.0) % Eos % (Auto) 0.9 (0.9-7.0) % Baso % (Auto) 0.4 (0.2-2.0) % Neut # (Auto) 6.0 (1.4-6.5) 10^3/uL Lymph # (Auto) 1.8 (1.2-3.8) 10^3/uL Wallace # (Auto) 0.6 (0.3-0.8) 10^3/uL Eos # (Auto) 0.1 (0.0-0.7) 10^3/uL Baso # (Auto) 0.0 (0.0-0.1) 10^3/uL Abs Immat Gran (auto) 0.02 (0.00-0.03) 10^3/uL Imm/Tot Granulo (auto) 0.2 (0.0-0.5) % Sodium 137 (136-145) mmol/L Potassium 4.1 (3.5-5.1) mmol/L Chloride 99 (98-107) mmol/L Carbon Dioxide 21.2 (21.0-32.0) mmol/L Anion Gap 20.9 BUN 29.0 H (7.0-18.0) mg/dL Creatinine 1.21 H (0.55-1.02) mg/dL Est GFR ( Amer) 54 L (>=60 mL/min/1.73m^2) Est GFR (Non-Af Amer) 45 L (>=60 mL/min/1.73m^2) BUN/Creatinine Ratio 24.0 Glucose 246 H (74-106) mg/dL Lactate 3.9 H* (0.4-2.0) mmol/L Calcium 9.2 (8.5-10.1) mg/dL Total Bilirubin 0.8 (0.2-1.0) mg/dL AST 20 (15-37) U/L ALT 29 (14-59) U/L Alkaline Phosphatase 78 (46-116) U/L Troponin I High Sens 5.8 (4.0-51.3) pg/mL Total Protein 7.5 (6.4-8.2) g/dL Albumin 4.0 (3.4-5.0) g/dL Globulin 3.5 g/dL Albumin/Globulin Ratio 1.1 Lipase 63.0 (16.0-77.0) U/L Urine Color Lt. yellow (YELLOW) Urine Clarity Clear (CLEAR) Urine pH 5.5 (5.0-9.0) Ur Specific [place] 1.025 (1.005-1.025) Urine Protein Negative (NEG/TRACE) mg/dL Urine Glucose (UA) >=1000 A (NEGATIVE) mg/dL Urine Ketones >=80 A (NEGATIVE) mg/dL Urine Occult Blood Negative (NEGATIVE) Urine Nitrite Negative (NEGATIVE) Urine Bilirubin Large A (NEGATIVE) Urine Urobilinogen 0.2 (0.2-1.0) EU/dL Ur Leukocyte Esterase Trace A (NEGATIVE) Urine RBC None seen (0-2) #/HPF Urine WBC 0-2 A (NONE SEEN) #/HPF Ur Squamous Epith Cells Rare (NONE/RARE) #/LPF Urine Crystals None seen (None Seen) #/HPF Urine Bacteria Trace A (NONE SEEN) #/HPF Urine Casts None seen (NONE SEEN) #/LPF Urine Mucus None seen (NONE SEEN) Ur Culture Indicated? No POC Glucose 230 H (74-106) mg/dL 02/16/ Range/Units 21:42 WBC (4.0-11.0) 10^3/uL RBC (4.20-5.40) 10^6/uL Hgb (12.0-16.0) g/dL Hct (36.0-48.0) % MCV (81.0-99.0) fL MCH (26.7-34.0) pg MCHC (29.9-35.2) g/dL RDW (11.0-15.0) % Plt Count (150-450) 10^3/uL MPV (9.5-13.5) fL Neut % (Auto) (43.0-75.0) % Lymph % (Auto) (20.5-60.0) % Wallace % (Auto) (1.7-12.0) % Eos % (Auto) (0.9-7.0) % Baso % (Auto) (0.2-2.0) % Neut # (Auto) (1.4-6.5) 10^3/uL Lymph # (Auto) (1.2-3.8) 10^3/uL Wallace # (Auto) (0.3-0.8) 10^3/uL Eos # (Auto) (0.0-0.7) 10^3/uL Baso # (Auto) (0.0-0.1) 10^3/uL Abs Immat Gran (auto) (0.00-0.03) 10^3/uL Imm/Tot Granulo (auto) (0.0-0.5) % Sodium (136-145) mmol/L Potassium (3.5-5.1) mmol/L Chloride (98-107) mmol/L Carbon Dioxide (21.0-32.0) mmol/L Anion Gap BUN (7.0-18.0) mg/dL Creatinine (0.55-1.02) mg/dL Est GFR ( Amer) (>=60 mL/min/1.73m^2) Est GFR (Non-Af Amer) (>=60 mL/min/1.73m^2) BUN/Creatinine Ratio Glucose (74-106) mg/dL Lactate 2.0 (0.4-2.0) mmol/L Calcium (8.5-10.1) mg/dL Total Bilirubin (0.2-1.0) mg/dL AST (15-37) U/L ALT (14-59) U/L Alkaline Phosphatase (46-116) U/L Troponin I High Sens (4.0-51.3) pg/mL Total Protein (6.4-8.2) g/dL Albumin (3.4-5.0) g/dL Globulin g/dL Albumin/Globulin Ratio Lipase (16.0-77.0) U/L Urine Color (YELLOW) Urine Clarity (CLEAR) Urine pH (5.0-9.0) Ur Specific [place] (1.005-1.025) Urine Protein (NEG/TRACE) mg/dL Urine Glucose (UA) (NEGATIVE) mg/dL Urine Ketones (NEGATIVE) mg/dL Urine Occult Blood (NEGATIVE) Urine Nitrite (NEGATIVE) Urine Bilirubin (NEGATIVE) Urine Urobilinogen (0.2-1.0) EU/dL Ur Leukocyte Esterase (NEGATIVE) Urine RBC (0-2) #/HPF Urine WBC (NONE SEEN) #/HPF Ur Squamous Epith Cells (NONE/RARE) #/LPF Urine Crystals (None Seen) #/HPF Urine Bacteria (NONE SEEN) #/HPF Urine Casts (NONE SEEN) #/LPF Urine Mucus (NONE SEEN) Ur Culture Indicated? POC Glucose (74-106) mg/dL Discharge Plan Discharge Chief Complaint: Weakness Clinical Impression: Nausea & vomiting Patient Disposition: Home, Self-Care Prescriptions / Home Meds: No Action rizatriptan [Maxalt] 10 mg tablet 10 mg PO Q2H PRN (Reason: migraine headache) Rx Instructions: do not exceed 3 doses per 24 hrs clonazepam [Klonopin] 1 mg tablet 1.5 mg PO DAILY tizanidine 4 mg capsule 4 mg PO TID PRN (Reason: muscle spasticity) Qty: 90 2RF atenolol 50 mg tablet 50 mg PO DAILY levothyroxine [Synthroid] 125 mcg tablet 125 mcg PO DAILY citalopram [Celexa] 40 mg tablet 40 mg PO DAILY pravastatin 40 mg tablet 40 mg PO DAILY metformin 500 mg tablet 500 mg PO BID glimepiride 4 mg tablet 4 mg PO DAILY etodolac 500 mg tablet 500 mg PO BID pregabalin [Lyrica] 100 mg capsule 100 mg PO BID olmesartan 20 mg tablet 20 mg bupropion HCl (smoking deter) 150 mg tablet extended release 12 hr PO Print Language: Malagasy Instructions: Acute Nausea and Vomiting (ED) Additional Instructions: follow up with Dr Cruz next week Referrals: Robert Cruz DO [Primary Care Provider, Internal Medicine] - 1 week
[2025-02-16 19:41] LABS: Hematocrit 39.8 % (36.0-48.0); Hemoglobin 13.3 g/dL (12.0-16.0); Immature Granulocytes Abs Auto 0.02 10^3/uL (0.00-0.03); Immature Granulocytes Pct Auto 0.2 % (0.0-0.5); Lymphocytes Absolute Auto 1.8 10^3/uL (1.2-3.8); Mean Corpuscular HGB Conc 33.4 g/dL (29.9-35.2); Mean Corpuscular Hemoglobin 28.7 pg (26.7-34.0); Mean Corpuscular Volume 86.0 fL (81.0-99.0); Platelet Count 248 10^3/uL (150-450); Red Blood Count 4.63 10^6/uL (4.20-5.40); White Blood Count 8.5 10^3/uL (4.0-11.0)
--- NOTE | 2025-02-16 19:43 | PC.NURSE ---
Patient dry heaving on arrival. Patient reports feeling shaky and sweating prior to arrival, reports I think my blood sugar is low . FSBS check with result of 238.
[2025-02-16] MEDS: 0.9 % SODIUM CHLORIDE 1,000 ML 999 ML IV ×2 (19:45→20:47)
[2025-02-16 19:58] LABS: Alanine Aminotransferase 29 U/L (14-59); Albumin Globulin Ratio 1.1; Albumin Level 4.0 g/dL (3.4-5.0); Alkaline Phosphatase 78 U/L (46-116); Anion Gap 20.9; Aspartate Amino Transferase 20 U/L (15-37); Blood Urea Nitrogen 29.0 mg/dL (7.0-18.0); Calcium 9.2 mg/dL (8.5-10.1); Carbon Dioxide 21.2 mmol/L (21.0-32.0); Chloride 99 mmol/L (98-107); Estimated GFR (African America 54 (>=60 mL/min/1.73m^2); Estimated GFR (Non-African Ame 45 (>=60 mL/min/1.73m^2); Globulin 3.5 g/dL; Glucose 246 mg/dL (74-106); Lipase 63.0 U/L (16.0-77.0); Potassium 4.1 mmol/L (3.5-5.1); Sodium 137 mmol/L (136-145); Total Protein 7.5 g/dL (6.4-8.2)
[2025-02-16 19:59] LABS: Lactate/Lactic Acid 3.9 mmol/L (0.4-2.0)
[2025-02-16] MEDS: METOCLOPRAMIDE HCL 10 MG/2 ML VIAL IVP (20:06)
[2025-02-16] MEDS: DIPHENHYDRAMINE HCL 50 MG/ML VIAL IVP (20:06)
[2025-02-16 20:44] LABS: Glucose Urine UA >=1000 mg/dL (NEGATIVE)
[2025-02-16 20:48] LABS: Cast Seen? NONE SEEN #/LPF (NONE SEEN); Crystals Seen? None Seen #/HPF (None Seen); Urine Culture Indicated NO
[2025-02-16 21:22] VITALS: BP 148/71; PULSE 97; O2SAT 97
[2025-02-16 22:06] LABS: Lactate/Lactic Acid 2.0 mmol/L (0.4-2.0)
[2025-02-16] MEDS: METOCLOPRAMIDE HCL 10 MG TABLET PO (22:51)
== END 2025-02-16 23:12 | disposition home or self-care (01) ==
PROVIDERS: Emergency Provider Internal Medicine; PCP Internal Medicine
DX: R11.2 Nausea with vomiting, unspecified (principal); E11.9 Type 2 diabetes mellitus without complications; Z79.84 Long term (current) use of oral hypoglycemic drugs; M54.9 Dorsalgia, unspecified; G89.29 Other chronic pain
CPT/HCPCS: 36415; 80053; 81001; 83605; 83690; 84484; 85025; 93005; 96361; 96374; 96375; 99285; J1200; J2405; J2765

== ENCOUNTER 2025-04-17 09:00 | Outpatient (OUT) | payer OTHER, SELFPAY ==
--- OUTSIDE RECORDS SUMMARY | 2025-01-01 08:40 | XMS_ITS ---
Author Organization [facility] Address [address] [place] [address] Care Team Providers Care Milling General Superintendent Name Role Phone MICA VILLASENOR DO Primary Care Provider Tomás Cox Unavailable [phone] REASON FOR VISIT right knee MRI Review - [place] / right hip pain Encounters Encounter Location Date Provider Diagnosis [facility] [address] [place] [phone] 01/01/2025 Tomás Helton Plan Of Treatment Next Appt Details Provider Name:Eloise Mitchell [facility], 05/23/2025 09:30:00 AM, [address] [place] [address], [phone], Progress Notes * CARROLL HARDEN ADOB:[birth year] (65 yo F)Acc No.[id number]:01/01/2025 Patient:?CARROLL HARDEN :?Tomás Helton DODOB:1960???Age:64 Y ???Sex:FemaleDate:01/01/2025Phone:[phone]:[address], [place]Pcp:MICA VILLASENOR DO Subjective: * Chief Complaints: * 1 . right knee MRI Review - [place] / right hip pain. * Medical History: Objective: * Vitals: Assessment: Plan: * Treatment: Forms: * Images: * Electronic signature of Tomás Helton DO on 04/17/2025 at 09:06 AM ESTSign off status: Pending * Provider: Jany Helton DO Date: 0 01/01/2025 Generated for Printing/Faxing/eTransmitting on:?04/17/2025 09:06 AM EST
--- OUTSIDE RECORDS SUMMARY | 2025-01-21 08:40 | XMS_ITS ---
Author Organization [facility] Address [address] [place] [address] Care Team Providers Care Photographic Printer Name Role Phone MICA VILLASENOR DO Primary Care Provider Tomás Cox Unavailable [phone] REASON FOR VISIT RT KNEE Encounters Encounter Location Date Provider Diagnosis [facility] [facility] [address] [place] [address] 01/21/2025 Tomás Helton Plan Of Treatment Next Appt Details Provider Name:[facility], 05/23/2025 09:30:00 AM, [address] [place] [address], [phone], Progress Notes * CARROLL FUENTES ADOB:[birth year] (65 yo F)Acc No.[id number]:01/21/2025 Patient:?CARROLL FUENTES :?Tomás Helton DODOB:1960???Age:64 Y ???Sex:FemaleDate:01/21/2025Phone:[phone]:[address] [id number]:MICA VILLASENOR DO Subjective: * Chief Complaints: * 1 . RT KNEE. * Medical History: Objective: * Vitals: Assessment: Plan: * Treatment: Forms: * Images: * Electronic signature of Tomás Helton DO on 04/17/2025 at 09:05 AM ESTSign off status: Pending * Provider: Jany Helton DO Date: 0 01/21/2025 Generated for Printing/Faxing/eTransmitting on:?04/17/2025 09:05 AM EST
--- OUTSIDE RECORDS SUMMARY | 2025-02-28 04:10 | XMS_ITS ---
Author Organization [facility] Address [address] [place] [address] Care Team Providers Care Sewer Pipe Sorter Name Role Phone MICA VILLASENOR DO Primary Care Provider Tomás Cox Unavailable [phone] Eloise Meehan Unavailable [phone] REASON FOR VISIT HARDWARE REMOVAL L4-5, L3-4 DECOMPRESSION AND FUSION WITH EXTENSION TO L3, [facility], 03/05 Encounters Encounter Location Date Provider Diagnosis [facility] [address] [place] [phone] 02/28/2025 Eloise Meehan Plan Of Treatment Next Appt Details Provider Name:Eloise Ny, 05/23/2025 09:30:00 AM, [address] [place] [address], [phone], Progress Notes * FINA CARROLL ADOB:[birth year] (65 yo F)Acc No.[id number]:02/28/2025 Patient:?BENI FUENTESRICIA Renea :?Eloise Veliz MD, PhDDOB:1960 ???Age:64 Y???Sex:FemaleDate:02/28/2025Phone:[phone]:[address], [place], [id number]:MICA VILLASENOR DO Subjective: * Chief Complaints: * 1 . HARDWARE REMOVAL L4-5, L3-4 DECOMPRESSION AND FUSION WITH EXTENSION TO L3, [facility], 03/05. * Medical History: Objective: * Vitals: Assessment: Plan: * Treatment: Forms: * Images: * Electronic signature of Eloise Meehan MD, PHD on 04/17/2025 at 09:06 AM EST Sign off status: Pending * Provider: Lea Veliz MD, PhD Date: 04/30/2024 Generated for Printing/Faxing/eTransmitting on:?04/17/2025 09:06 AM EST
--- OUTSIDE RECORDS SUMMARY | 2025-03-05 00:10 | XMS_ITS ---
Author Organization [facility] Address [address] [place] [address] Care Team Providers Care [employer] Executive Director Name Role Phone MICA VILLASENOR DO Primary Care Provider Tomás Cox Unavailable [phone] Eloise Meehan Unavailable [phone] REASON FOR VISIT HARDWARE REMOVAL L4-5, L3-5 DECOMPRESSION AND FUSION WITH EXTENSION TO L3 Encounters Encounter Location Date Provider Diagnosis [facility] [address] [facility] [place] [place] [id number] 03/05/2025 Eloise Meehan Plan Of Treatment Next Appt Details Provider Name:Eloise Knox Alfredo , 05/23/2025 09:30:00 AM, [address] [place] [address], [phone], Progress Notes * CARROLL FUENTES ADOB:[birth year] (65 yo F)Acc No.[id number]:03/05/2025 Patient:?BENI FUENTESRICALIYAH Meier :?Eloise Veliz MD, PhDDOB:1960 ???Age:64 Y???Sex:FemaleDate:03/05/2025Phone:[phone]:[address], [place]-[address]Pcp:MICA VILLASENOR DO * Images: * Electronic signature of Eloise Meehan MD, PHD on 04/17/2025 at 09:06 AM EST Sign off status: Pending * Provider: Lea Veliz MD, PhD Date: 05/05/2024 Generated for Printing/Geena/Padminiitting on:?04/17/2025 09:06 AM EST
--- OUTSIDE RECORDS SUMMARY | 2025-04-11 05:10 | XMS_ITS ---
Author Organization [facility] Address [address] [place] [place] [address] Care Team Providers Care Utility Engineer Name Role Phone MICA VILLASENOR DO Primary Care Provider Tomás Cox Unavailable [phone] Norbert Lewis Unavailable [phone] Allergies Allergen (clinical drug ingredient) Drug/Non Drug Allergy documented on EMR Reaction Allergy Type Onset Date Status meperidine dermerol (uncoded) Unknown Allergy ActiveLatexlatex (uncoded)UnknownAllergyActiveDHEAUnknownDrug AllergyActive etodolacLodineUnknownDrug AllergyActive REASON FOR VISIT HARDWARE REMOVAL L4-5, L3-4 DECOMPRESSION AND FUSION WITH EXTENSION TO L3, [facility], 03/05 Medications Medication SIG (Take, Route, Frequency, Duration) Notes Start Date End Date Status BuPROPion (Eqv-Zyban Advantage Pack) 150 mg/12 h ours ; Duration: 30 Days ActiveCitalopram Hydrobromide 40 MGTAKE 1 TABLET BY MOUTH EVERY DAY; Duration: 90 DaysActiveglimepiride 4 mg; Duration: 90 DaysActivemetFORMIN 500 MGTAKE 1 TABLET BY MOUTH TWICE A DAY WITH MEALS; Duration: 90 DaysActiveatenolol 50 mg; Duration: 90 DaysActiveLevothyroxine Sodium 125 MCGTAKE 1 TABLET BY MOUTH EVERY DAY; Duration: 90 DaysActiveFlexeril 10 mg1 tab(s) orally 3 times a day prn muscle /03/2025Active Social History Tobacco Use: Social History Observation [...] (Standard) Question Answer Notes Tobacco use: Nonsmoker Vital Signs Height 5'1 in 04/11/2025 Weight 175 lbs 04/11/2025 BMI 33.06 04/11/2025 Encounters Encounter Location Date Provider Diagnosis [facility] [address] [place] [phone] 04/11/2025 Norbert Lewis Encounter for other orthopedic aftercare Z47.89 Assessments Encounter Date Diagnosis (ICD Code) Assessment Notes Treatment Notes Treatment Clinical Notes Section Notes 04/11/2025 Encounter for other orthopedic a ftercare (ICD-10 - Z47.89) Plan Of Treatment Pending Test Test Name Order Date Lumbar spine 2v ap and lat - 02400 04/11 Next Appt Details Follow Up: 6 Weeks, Reason: Provider Name:Eloise Knox [facility], 05/23/2025 09:30:00 AM, [address] [place] [address], [phone], Progress Notes * CARROLL FUENTES ADOB:[birth year] (65 yo F)Acc No.[id number]:04/11/2025 Progress Notes Patient: CARROLL CARRERO :?ARI Ppoe-CDOB:1960???Age:64 Y ???Sex:FemaleDate:04/11/2025Phone:[phone]:[address], [place], [place]-[id number]:MICA VILLASENOR, Subjective: * Chief Complaints: * 1 . HARDWARE REMOVAL L4-5, L3-4 DECOMPRESSION AND FUSION WITH EXTENSION TO L3, [facility], 03/05. 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 * Surgical History: H ysterectomy , Cervical fusionx2 , low back fusion , bilateral shoulder replacement , knee scopes , L3-5 laminectomy, L4-5 PSF 07/08/2024, L3-4 laminectomy, PSF 02/26/2025. * Family History: F ather: Arthritis,Diabetes,Heart Disease. * Social History: A ANABEL-C (Standard) D id you have a drink containing alcohol in the past year? Y es,?How often did you have six or more drinks on one occasion in the past year? N ever (0 point), H ow many drinks did you have on a typical day when you were drinking in the past year? 1 or 2 drinks (0 point), H ow often did you have a drink containing alcohol in the past year? Monthly or less (1 point). T obacco Control (Standard) T obacco use: N onsmoker. * Medications: T aking Flexeril 10 mg tablet 1 tab(s) orally 3 times a day prn muscle spasms , Taking Levothyroxine Sodium 125 MCG TABLET TAKE 1 TABLET BY MOUTH EVERY DAY , Taking glimepiride 4 mg tablet , Taking atenolol 50 mg tablet , Taking metFORMIN 500 MG TABLET TAKE 1 TABLET BY MOUTH TWICE A DAY WITH MEALS , Taking Citalopram Hydrobromide 40 MG TABLET TAKE 1 TABLET BY MOUTH EVERY DAY , Taking BuPROPion (Eqv-Zyban Advantage Pack) 150 mg/12 hours tablet, extended release , Medication List reviewed and reconciled with the patient * Allergies: l atex, Lodine, dermerol, DHEA. Objective: * Vitals: H t: 5'1 , Wt: 175 lbs, BMI:33.06. Assessment: * Assessment: 1.?Encounter for other orthopedic aftercare - Z47.89 (Primary)??? Plan: * Treatment: ?Imaging: Lumbar spine 2v ap and lat - 86896 * Procedure Codes: 7 2100 X-ray Lumbar Spine, 2 view * Follow Up: 6 Weeks Forms: * Images: * Electronic signature of Norbert Lewis PA-C on 04/17/2025 at 09:05 AM ESTSign off status: Pending * Provider: Lea Lewis PA-C Date: 1 06/12/2024 Generated for Printing/Faxing/eTransmitting on:?04/17/2025 09:05 AM EST
--- OUTSIDE RECORDS SUMMARY | 2025-04-17 09:06 | XMS_ITS | Clinical Summary ---
Author Organization [facility] Address [address] [place] [address] Phone Care Team Providers Care Radio Rigger Name Role Phone Blane Buckner MD Primary Care Provider [phone] Social History Tobacco UseTypesPacks/DayYears UsedDateSmoking Tobacco: Never Assessed CommentsUnknownSex and Gender InformationValueDate RecordedSex Assigned at Not on fileLegal XgpHqxqdp87/25/2022 4:08 PM ESTGender IdentityNot on fileSexual OrientationNot on file Plan of Treatment Not on file Care Teams Team MemberRelationshipSpecialtyStart [place] [id number] [address] PCP - [facility]07/04/14
--- OUTSIDE RECORDS SUMMARY | 2025-04-17 09:06 | XMS_ITS | Clinical Summary ---
Author Organization [facility] Address [address] [place] [address] Care Team Providers Care Administrative Hearing Officer Name Role Phone AnthonyRobert Karen STOCKTON Primary Care Provider Medications No known medications Active Problems No known active problems Family History Medical HistoryRelationNameCommentsDiabetesFatherHeart diseaseFatherHypertension FatherHyperlipidemiaMotherRelationNameStatusCommentsFatherAliveMotherAlive Social History Tobacco UseTypesPacks/DayYears UsedDateSmoking Tobacco: Never Tobacco Cessation:Counseling Given: Not Answered Alcohol UseStandard Drinks/WeekCommentsNever0 (1 standard drink = 0.6 oz pure alcohol)CommentsUnknownSex and Gender InformationValueDate RecordedSex Assigned at PxwelBkecxx43/19/2023 8:42 AM EDTLegal NkiLxcvpx24/01/2023 8:32 PM EDTGender WybhrygcKognyz90/19/2023 8:42 AM EDTSexual OrientationNot on file Last Filed Vital Signs Vital SignReadingTime TakenCommentsBlood Jplzqoph864/8203/11/2021 12:00 PM EST Pulse--Temperature--Respiratory Rate--Oxygen Saturation--Inhaled Oxygen Concentration--Wsdqcb58.6 kg (180 lb)09/09/2022 12:00 PM JMSLxznlm318.2 cm (5' 1.5 )09/09/2022 12:00 PM EDTBody Mass Index33.4605 12:00 PM EDT Plan of Treatment Not on file Insurance Care Teams Team MemberRelationshipSpecialtyStart DateEnd Date Robert Cruz DO PCP - GeneralInternal Medicine10/01/22
--- OUTSIDE RECORDS SUMMARY | 2025-04-17 09:06 | XMS_ITS | Patient Health Record ---
Author Organization [facility] Address [address] [place] [address] Care Team Providers Care Program Control Analyst Name Role Phone MICA CRUZ DO Primary Care Provider Tomás Cox Unavailable [phone] Eloise Meehan Unavailable [phone] Norbert Lewis Unavailable [phone] Dank Sams Unavailable [phone] Norbert Lamar Unavailable [phone] Henok Rosario Unavailable [phone] Brandi Duque Unavailable [phone] Allergies Allergen (clinical drug ingredient) Drug/Non Drug Allergy documented on EMR Reaction Allergy Type Onset Date Status meperidine dermerol (uncoded) Unknown Allergy ActiveLatexlatex (uncoded)UnknownAllergyActiveDHEAUnknownDrug AllergyActive etodolacLodineUnknownDrug AllergyActive Results Component Value Reference Range Notes MRI KNEE RIGHT WO CONTRAST ( Not yet reviewed by provider) Interpretation: Performing Lab: Notes/Report: EXAM: MRI KNEE RIGHT WO CONTRAST Performed at: [address] [address] XR LUMBAR SPINE 1 VW Reviewed date:07/11/2024 01:53:12 PM Interpretation: Performing Lab: Notes/Report: PROCEDURE: XR LUMBAR SPINE 1 VW [facility] [address], [place] [address], Original Ordering Provider: Magdaleno GREWAL Provider Role: Ordering XR LUMBAR SPINE 1 VW Reviewed date:07/11/2024 01:53:12 PM Interpretation: Performing Lab: Notes/Report: MOBILE LATERAL LUMBAR SPINE: [facility] [address], [place] [address], Original Ordering Provider: Magdaleno GREWAL Provider Role: Ordering CT Arthrogram - Right Should er Reviewed date:06/27/2024 12:33:41 PM Interpretation: Performing Lab: Notes/Report: Surgery Scheduling (Not yet reviewed by provider) Interpretation:Pre-Op orders: CBC,BMP,HGA1C. PT/TT, TYPE AND SCREEN,RSA NASAL SWAB Performing Lab: Notes/Report: Pre-Op orders: CBC,BMP,HGA1C. PT/TT, TYPE AND SCREEN,RSA NASAL SWAB Primary Insurance Company: MEDICARE [facility] [place] Surgeon/Assist:ST STODDARD/NORBERT OR ALEXISSurgery Location:[facility]gery Date & Time:03/05/25 @ 10:15AMHosp arrival time day of:8:15AMSurgery End Time:12:15PM Procedure:HARDWARE REMOVAL L4-5, L3-4 DECOMPRESSION AND FUSION WITH EXTENSION TO Z7Viellif Equipment:SSEP, PRONE, SHERITA TABLE, SURGALIGNDiagnosis:M48.061 STENOSISAdmission Type:OUTPATIENTAnesthesia Type/CPNB:[id number] HOURSPost-op Appointment Date:04/11/25 @ 10:10AM FINDLAYLab [facility] Pararescue Craftsman:Deja Physician:Korey Rodriguezt Date/T1 @ 11:00AM History & Physical Appointment Date/:02/28/25 @ 9:10AM FINDLAYXR LUMBAR SPINE 1 VW Reviewed date:02/28/2025 12:10:54 PM Interpretation: Performing Lab: Notes/Report: MOBILE LATERAL LUMBAR SPINE: [facility] [address], [place] [address], Original Ordering Provider: Magdaleno CALVILLO Provider Role: Ordering Reason For Referral Reason RAMO................. .....PLEASE OBTAIN AUTHORIZATION FOR CT ARTHROGRAM RIGHT SHOULDER Diagnosis 1 Acute pain of right shoulder (M25.511) Referral Organization [facility] Referring Provider First Name Norbert Referring Provider Last Name Lamar Referring Provider Speciality Orthopedic Surgery Referred Organization [facility] Referred Address [place], [place] Procedure 1 CT UPPER EXTREMITY W /DYE ([address]6210) General Notes Rajni Benton 025 01:33:00 PM >PER AVAILITY/DEVOTED, NO AUTH REQUIRED LANI NOTIFIED REF FAXED TO Cadence HOPKINS Monica 04/30/2024 01:50:59 PM > FAXED ORDER Referral Priority Routine Reason RIGHT SHOULDER ASPIR ATION AND CULTURES PLEASE CONTACT PATIENT TO SET UP Diagnosis 1 Acute pain of right shoulder (M25.511) Diagnosis 2 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 Diagnosis 1 Primary osteoarthrit is of right knee (M17.11) Referral Organization [facility] Referring Provider First Name Tomás Referring Provider Last Name Daine Referring [facility] Referred Organization [facility] Procedure 1 MRI Joint Lower Ext w/o Dye (23798) General Notes Rajni Benton 025 08:45:19 AM >APPROVED PER DEVOTED AUTH #[id number] VALID 11/14/2024-02/14/2025 COPY IN CHART LANI NOTIFIED REF FAXED TO [facility], FACILITY WAS ORIGINALLY [facility] AT [facility], FACILITY HAS BEEN CHANGED TO [place] CALL REF #[id number] WILL TAKE 48 HOURS TO UPDATE, Uma Valladares 11/13/2024 03:06:40 PM >ORDER FAXED Referral Priority Routine Reason APPROVED............ ....................NOT SCHEDULED...................................DEVOTED MCR MRI LUMBAR TO BE DONE AT [place] Diagnosis 1 Right sided sciatica (M54.31) Referral Organization [facility] Referring Provider First Name Eloise Referring Provider Last Name St Stoddard Referring Provider Speciality Orthopedic Surgery [facility] Referred Address [place], [place], Procedure 1 MRI Lumbar Spine w/o Dye ([address]) General Notes Barb Kendall 2024 10:13:59 AM >, Lula Slaughter 12/27/2024 10:18:38 AM > WAITING ON TODAY'S OFFICE NOTE, Lula Slaughter 01/02/2025 11:36:39 AM > DEVOTED ACTIVE AND EFFECTIVE 03/25/24 PER DEVOTED PAYER SPACE. AUTHORIZATION # [id number] APPROVED AND VALID 01/03/25-04/24/25 PER DEVOTED PAYER SPACE. SCANNED INTO CHART AND FAXED TO RANDALL.Deshaun Sara 01/03/2025 10:51:09 AM > faxed Referral Priority Routine Reason RFERRAL FOR [place] [facility] FOR EVAL AND TREAT Diagnosis 1 Lumbar stenosis with neurogenic claudication (M48.062) Referral Organization [facility] Referring Provider First Name Eloise Referring Provider Last Name St Stoddard Referring Provider Speciality Orthopedic Surgery Referred Organization [facility] Referred Address [address] [place] [address],[address], [address],[place], [place],[address],[place] General Notes Barb Kendall 2024 03:39:59 PM >REFERRAL FAXED Referral Priority Routine Reason APPROVED OUTPATIENT...................................02/26/25............................ .......DEVOTED MCR HARDWARE REMOVAL L4-5, L3-4 DECOMPRESSION AND FUSION WITH EXTENSION TO L3 35576, 26[address], [address], [address] Diagnos is 1 Spondylolisthesis, lumbar region (M43.16 ) Diagnos is 2 Spinal stenosis, lumbar region without n eurogenic claudication (M48.061) Diagnos is 3 Lumbar radiculopathy (M54.16) Referra akil [facility] Referri ng Provide r First Name Eloise Referri ng Provide r Last Name [facility] Stoddard Referri ng Provide r Special ity Orthopedic Surgery Referre d Konstantin [facility] Referre d Address [address] [place], [place],[id number],[place] Procedu re 1 Arthrodesis, posterior lumbar, 1 lumbar level (42454) Procedu re 2 Laminectomy, facetectomy and foraminotom y single lumbar (10724) Procedu re 3 Posterior non-segmental instrumentation () Procedu re 4 Autograft for spine surgery only; local obtained from same incision () General Notes Barb Kendall 01/22/2025 08:14:41 AM >, Lula Slaughter 02/01/2025 10:21:29 AM > DEVOTED ACTIVE AND EFFECTIVE 03/25/24 PER DEVOTED PAYER SPACE ON AVAILITY. [place] [address] AND PER DEVOTED PAYER SPACE. SCANNED INTO CHART. AUTHORIZATION REQUEST SUBMITTED FOR ALL OTHER CODES WITH CLINICALS, PENDING AUTHORIZATION # [id number], Lula Slaughter 02/04/2025 03:20:54 PM > AUTHORIZATION # [id number] APPROVED OUTPATIENT AND VALID 03/05/25-05/25/25 PER FAX BACK FROM DEVOTED. SCANNED INTO CHART. PLEASE CHANGE AND SEND BACK., Barb Kendall 02/05/2025 07:32:27 AM >CHANGE TO OUTPATIENT, Lula Slaughter 02/05/2025 07:33:10 AM > THANK YOU, FAXED TO [facility]., Barb Kendall 02/20/2025 11:02:56 AM >SURGERY DATE MOVED TO 02/26/25, Lula Slaughter 02/20/2025 11:21:14 AM > CALLED DEVOTED @ [phone] AND SPOKE WITH CHRISTO, CALL REFERENCE # [id number], SUBMITTED REQUEST TO HAVE AUTHORIZATION UPDATED TO 02/26/25 START DATE. ALLOW 24-48 FOR CLINICAL REVIEW TO UPDATE REQUEST. AUTHORIZATION WILL BE VALID 02/26/25-05/25/25, Lula Slaughter 02/20/2025 01:05:15 PM > RECEIVED UPDATED AUTHORIZATION. SCANNED INTO CHART AND FAXED TO [facility]. Referra l Priorit y Urgent Medications Medication SIG (Take, Route, Frequency, Duration) Notes Start Date End Date Status BuPROPion (Eqv-Zyban Advantage Pack) 150 mg/12 h ours ; Duration: 30 Days ActiveCitalopram Hydrobromide 40 MGTAKE 1 TABLET BY MOUTH EVERY DAY; Duration: 90 DaysActiveLevothyroxine Sodium 125 MCGTAKE 1 TABLET BY MOUTH EVERY DAY; Duration: 90 DaysActiveFlexeril 10 mg1 tab(s) orally 3 times a day prn muscle lapvrs79/03/2025Activeglimepiride 4 mg; Duration: 90 DaysActivemetFORMIN 500 MG TAKE 1 TABLET BY MOUTH TWICE A DAY WITH MEALS; Duration: 90 DaysActiveatenolol 50 mg; Duration: 90 DaysActive Social History Tobacco Use: Social History Observation [...] Problem Status W/U Status Risk Notes Problem Encounter for other orthopedic aftercare (Z47.89)ActiveconfirmedProblem Degeneration of cervical intervertebral disc (14955644)Other cervical disc degeneration at C4-C5 level (M50.321)ActiveconfirmedProblemRemoval of all drains (procedure) (719756426)Encounter for change or removal of drains (Z48.03)Active confirmedProblemAcquired spondylolisthesis (293048212)Spondylolisthesis, cervical region (M43.12)ActiveconfirmedProblemCervical pain (12705225)Cervical pain (M54.2)ActiveconfirmedProblemHistory of arthrodesis (940498683)Arthrodesis status (Z98.1)ActiveconfirmedProblemShoulder joint pain (488540965)Acute pain of right shoulder (M25.511)ActiveconfirmedProblemHistory of right shoulder arthroplasty (situation) (4013256070203295)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)ActiveconfirmedProblemHigh risk drug monitoring status (622179655)senior care (current) use of opiate analgesic (Z79.891)ActiveconfirmedProblemOther intervertebral disc degeneration, lumbar region with discogenic back pain and lower extremitypain (M51.362)ActiveconfirmedProblemAcquired deformity of spine (31708236)Neuroforaminal stenosis of lumbar spine (M48.061)Activeconfirmed ProblemNeurogenic claudication (531124568)Lumbar stenosis with neurogenic claudication (M48.062)ActiveconfirmedProblemSpinal stenosis of lumbar region (17579202)Spinal stenosis, lumbar region without neurogenic claudication (M48.061)ActiveconfirmedProblemSciatica (09421354)Right sided sciatica (M54.31) ActiveconfirmedProblemLumbar spondylosis (522632281)Lumbar spondylosis (M47.816) ActiveconfirmedProblemSciatica (53194967)Sciatica of right side (M54.31)Active confirmedProblemOsteoarthritis of knee (584837091)Primary osteoarthritis of right knee (M17.11)ActiveconfirmedProblemDisplacement of lumbar intervertebral disc without myelopathy (60919619)Other intervertebral disc displacement, lumbar region (M51.26)ActiveconfirmedProblemAcquired spondylolisthesis (347671931) Spondylolisthesis, lumbar region (M43.16)ActiveconfirmedProblemPain of right knee joint (finding) (092256313404378)Pain, joint, knee, right (M25.561)Active confirmedProblemLumbar radiculopathy (608860933)Lumbar radiculopathy (M54.16) Activeconfirmed Vital Signs Height 5'1 in 04/11/2025 Mbkxoo934 lbs14462EXY31.0604/11/2025 Encounters Encounter Location Date Provider Diagnosis [facility] [address] [place] [phone] 04/11/2025 Norbert Lewis Encounter for other orthopedic aftercare Z47.89 [facility] [address] [facility] [place] [place] [address] 04/30/2024 Norbert Lamar Acute pain of right shoulder M25.511 [facility] [address] [facility] [place] [address] 05/30/2024 Henok Rosario Acute pain of right shoulder M25.511 [facility] [address] [facility] [place] [address] 06/27/2024 Henok Rosario Encounter for preprocedural laboratory examination Z01.812 ; Acute pain of right shoulder M25.511 ; Encounter for other preprocedural examination Z01.818 ; 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 and History of right shoulder replacement Z96.611 [facility] [address] [place] [address] 07/06/2024 Dank Diglio Sciatica of right si de M54.31 and Lumbar spondylosis M47.816 [facility] Inpatient [address] [place], [place] [id number] 07/07/2024 Dank Diglio Spinal stenosis, lumbar region without neurogenic claudication M48.061 ; Other intervertebral disc displacement, lumbar region M51.26 and Spondylolisthesis, lumbar region M43.16 [facility] Inpatient [address] [place], [place] [id number] 07/08/2024 Selvon Zoran Spinal stenosis, lumbar region without neurogenic claudication M48.061 ; Other intervertebral disc displacement, lumbar region M51.26 ; Spondylolisthesis, lumbar region M43.16 and Other intervertebral disc degeneration, lumbar region with discogenic back pain and lower extremity pain M51.362 [facility] [address] [facility] [place] [place] [address] 07/13/2024 Brandi Duque Encounter for other orthopedic aftercare Z47.89 ; Encounter for change or removal of drains Z48.03 and Arthrodesis status Z98.1 [facility] [address] [facility] [place] [address] 07/27/2024 [facility] Encounter for other orthopedic aftercare Z47.89 and Arthrodesis status Z98.1 [facility] [address] [facility] [place] [place] [address] 08/24/2024 [facility] Encounter for other orthopedic aftercare Z47.89 ; Arthrodesis status Z98.1 and senior care (current) use of opiate analgesic Z79.891 [facility] [address] [place] [address] 10/01/2024 Tomás Helton Pain, joint, knee, right M25.561 and Primary osteoarthritis of right knee M17.11 [facility] [address] [place] [address] 10/19/2024 Norbert Lewis Aftercare following surgery of the musculoskeletal system Z47.89 [facility] [address] [place] [address] 11/12/2024 Tomás Helton Primary osteoarthrit is of right knee M17.11 [facility] [address] [facility] [place] [address] 12/14/2024 Selvon Zoran Greater trochanteric bursitis of right hip M70.61 ; Aftercare following surgery of the musculoskeletal system Z47.89 and Trochanteric bursitis of right hip M70.61 [facility] [address] [facility] [place] [address] 12/27/2024 Dank Diglio Right sided sciatica M54.31 and Aftercare following surgery of the musculoskeletal system Z47.89 [facility] [address] [facility] [place] [address] 01/10/2025 Selvon Zoran Lumbar stenosis with neurogenic claudication M48.062 ; Lumbar radiculopathy M54.16 ; Aftercare following surgery of the musculoskeletal system Z47.89 and Neuroforaminal stenosis of lumbar spine M48.061 [facility] [address] [facility] [place] [address] 02/21/2025 Dank Diglio Spondylolisthesis, lumbar region M43.16 ; Spinal stenosis, lumbar region without neurogenic claudication M48.061 and Lumbar radiculopathy M54.16 [facility] Outpatient [address] [facility] [place] [place] [id number] 02/26/2025 Selvon Zoran Spinal stenosis, lumbar region without neurogenic claudication M48.061 ; Other intervertebral disc degeneration, lumbar region with discogenic back pain and lower extremity pain M51.362 and Arthrodesis status Z98.1 [facility] [address] [place] [address] 06/26/2024 [place] [address] [place] [address]/08/2024 [place] [address] [place] [address]/[place] [address] [place] [address]/[facility] following surgery of the musculoskeletal system Z47.[address] [place] [address] [place] [address]/10/2024Steven PalteSpondylolisthesis, lumbar region M43.16 ; Spinal stenosis, lumbar region without neurogenic claudication M48.061 and Aftercare following surgery of the musculoskeletal system Z47.[address] [place] [address] [place] [address]/[place] [address] [place] [address] 12/17/2024[place] [address] [place] [address]/06/2024[place] [address] [place] [address]/[place] [address] [place] [address]/[place] [address] [place] [address]/[facility] En[facility] Date Diagnosis (ICD Code) Assessment Notes Treatment Notes Treatment Clinical Notes Section Notes 04/30/2024 Acute pain of right shoulder (IC D-10 - M25.511) 05/30/2024ute pain of right shoulder (ICD-10 - M25.511)Right shoulder pain status post anatomic total shoulder arthroplasty with likely subscapularis failu re06/27/2024Encounter for preprocedural laboratory examination (ICD-10 - Z01.812)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 5Acute pain of right shoulder (ICD-10 - M25.511)Right painful total shoulder arthroplasty with subscapularis dmdcjkd5007/07/2024Other intervertebral disc displacement, lumbar region (ICD-10 - M51.26)07/07/2024Spinal stenosis, lumbar region without neurogenic claudication (ICD-10 - M48.061)07/08/2024Other intervertebral disc displacement, lumbar region (ICD-10 - M51.26)07/08/2024 Spinal stenosis, lumbar region without neurogenic claudication (ICD-10 - M48.061)07/30/2024Spondylolisthesis, lumbar region (ICD-10 - M43.16)07/30/2024 Spinal stenosis, lumbar region without neurogenic claudication (ICD-10 - M48.061)10/01/2024Pain, joint, knee, right (ICD-10 - M25.561)Right knee [facility] 10/01/2024Primary osteoarthritis of right knee (ICD-10 - M17.11)Right knee [facility] 10/19/2024ftercare following surgery of the musculoskeletal system (ICD-10 - Z47.89)1. 3 months status post L3-L5 decompression L4-L5 ncixvj8811/12/2024Primary osteoarthritis of right knee (ICD-10 - M17.11)right knee internal derangement right knee spgtfvjyd13/22/2025ftercare following surgery of the musculoskeletal system (ICD-10 [...] from the hip rather than the back. 07/13/2024Encounter for change or removal of drains (ICD-10 - Z48.03)1.5 days s/p L3-5 decompression/dukfhn8607/13/2024Encounter for other orthopedic aftercare (ICD-10 - Z47.89)1.5 days s/p L3-5 decompression/iglglj1707/20/2024ftercare following surgery of the musculoskeletal system (ICD-10 - Z47.89)07/27/2024 Arthrodesis status (ICD-10 - Z98.1)1. 3 weeks s/p L3-5 decompression with L4-S1 zyummt5007/27/2024Encounter for other orthopedic aftercare (ICD-10 - Z47.89)1. 3 weeks s/p L3-5 decompression with L4-S1 yxcqdw4212/14/2024Greater trochanteric bursitis of right hip (ICD-10 - [...] L4-5 fusion with complaints of persistent right aayehqiq63/04/2025Right sided sciatica (ICD-10 - M54.31)1. 6 months status post L3-5 decompression and L4-5 fusion with complaints of persistent right ooxubcna90/18/2025Lumbar radiculopathy (ICD-10 - M54.16) 1. Right L3-4 [...] level shows adequate decompression without nerve compression 02/26/2025Spinal stenosis, lumbar region without neurogenic claudication (ICD-10 - M48.061)02/26/2025Other intervertebral disc degeneration, lumbar region with discogenic back pain and lower extremitypain (ICD-10 - M51.362)04/11/2025 Encounter for other orthopedic aftercare (ICD-10 - Z47.89)08/24/2024rthrodesis status (ICD-10 - Z98.1)1. 6 weeks s/p L3-5 decompression and L4-S1 fusion 02/21/2025Spondylolisthesis, lumbar region (ICD-10 - M43.16)02/21/2025Spinal stenosis, lumbar region without neurogenic claudication (ICD-10 - M48.061) 08/24/2024Encounter for other orthopedic aftercare (ICD-10 - Z47.89)1. 6 weeks s/p L3-5 decompression and L4-S1 vplbws6207/06/2024Sciatica of right side (ICD-10 - M54.31) 1. L4-5 spondylolisthesis, grade 1 2. Right sciatica 3. Prior lumbar decompression 07/06/2024Lumbar spondylosis (ICD-10 - M47.816) 1. L4-5 spondylolisthesis, grade 1 2. Right sciatica 3. Prior lumbar decompression 02/26/2025rthrodesis status (ICD-10 - Z98.1)08/24/2024Long term (current) use of opiate analgesic (ICD-10 - Z79.891)1. 6 weeks s/p L3-5 decompression and L4- S1 wlwspr2907/13/2024rthrodesis status (ICD-10 - Z98.1)1.5 days s/p L3-5 decompression/ueznlx5602/21/2025Lumbar radiculopathy (ICD-10 - M54.16)01/10/2025 Aftercare following surgery of the musculoskeletal system [...] level shows adequate decompression without nerve compression 07/30/2024ftercare following surgery of the musculoskeletal system (ICD-10 - Z47.89)07/08/2024Spondylolisthesis, lumbar region (ICD-10 - M43.16)07/07/2024 Spondylolisthesis, lumbar region (ICD-10 - M43.16)06/27/2024Encounter for other preprocedural examination (ICD-10 - Z01.818)Right painful total shoulder arthroplasty with subscapularis xuzqlmq7906/27/2024arrier or suspected carrier of Methicillin resistant Staphylococcus aureus (ICD-10 - Z22.322)Right painful total shoulder arthroplasty with subscapularis wnyjsjz0207/08/2024Other intervertebral disc degeneration, lumbar region with discogenic back pain and lower extremitypain (ICD-10 - M51.362)12/14/2024Trochanteric bursitis of right hip (ICD-10 - M70.61) [...] level shows adequate decompression without nerve compression 06/27/2024History of right shoulder replacement (ICD-10 - Z96.611)Right painful total shoulder arthroplasty with subscapularis qifkkja7404/30/2024Other For her right shoulder pain after total shoulder arthroplasty she prefers to follow-up at [facility] and not the [facility]. I recommended a CT arthrogram to [...] anatomic total shoulder arthroplasty with likely subscapularis sqmfgyx7806/27/2024Other Operative and nonoperative treatments were reviewed in [...] postoperative.Right painful total shoulder arthroplasty with subscapularis gckrmpe4407/06/2024Other Plan established by Dr. Veliz. At this [...] Veliz. Best regards, 1.5 days s/p L3-5 decompression/skuzqa9407/27/2024Other Plan established by Dr. Veliz. Patient evaluated [...] 3 weeks s/p L3-5 decompression with L4-S1 dqryrd5608/24/2024Other Plan established by Dr. Veliz. Patient evaluated [...] 6 weeks s/p L3-5 decompression and L4-S1 xumcrx4910/01/2024OtherDiscussion had today with the patient regarding her [...] 3 months status post L3-L5 decompression L4-L5 acsbrm3711/12/2024Other Discussion had today with Carroll regarding her [...] of MRIright knee internal derangement right knee wvxnnzrze29/22/2025Other Plan - Administer steroid injection to the [...] L4-5 fusion with complaints of persistent right hsuhuhqw58/18/2025Other Plan 1. Right L3-4 foraminal stenosis with [...] Date Lumbar spine, 4v flex ext - 19711 2024 Lumbar spine 2v ap and lat - 92867 07/27 Lumbar spine 2v ap and lat - 05011 10/19 Lumbar spine 2v ap and lat - 78684 12/14 Cell count 05/30/2024 Cervical spine,ap,lat,flex,ext - 27706 1 05/31/2023 MRI : Knee W/O Contrast Right - 23563 EKG 06/27/2024 CBC 01/10/2025 Crystals 05/30/2024 HGB [...] CONTRAST 12/01/2024 SCC- KNEE 4 VIEW RIGHT 86830 10/01/2024 FACET INJECTION 03/30/2024 ESR, CRP 05/30/2024 Aspiration for cultrues of Right shoulde r 05/30/2024 Lumbar spine 2v ap and lat - 94158 04/11 MRI : Lumbosacral Spine W/O Contrast - 7 214712/27/2024 Next Appt Details Provider Name:Eloise Ny, 05/23/2025 09:30:00 AM, [address] [facility], [place], [address], Insurance Providers Payer Name Payer Address Payer Phone Subscriber Number Group Number Insured Name Patient Relationship to Insured Coverage Start Date Coverage End Date Medicare [employer] [address] [address] [place] [phone] D6YSCH FINA, RHONDAelf - patient is the [id number] 2024NTHEM [address] [place] [id number], PATRICIASelf - patient is the [id number] 2024MedicarePO [address] [address] [place] [address] [phone], PATRICIASelf - patient is the insured Medications Administered Medication Instructions Date of Administration Dosage Notes BUPIVACAINE mLDepo-Rwnavn41 iIqcloerkmv39/22/20255 mL Medical (General) History Medical History History ICD Code High Blood Pressure DiabetesThyroid diseaseOsteoporosisOsteoarthritisDepressionHealthcare worker Sleep apnea- Lower back fusion (L4-L5) approximately 6 months ago- Right lower leg numbness, present at least 3 months ago- Greater trochanteric bursitis of the right hip- Previous lumbar surgery with L4-5 fusion- History of steroid injections in knee and hip without benefitSurgical History Surgery Date(Month/Year) L3-4 laminectomy, PSF 02/26/2025 L3-5 laminectomy, L4-5 PSF 07/08/2024 knee scopes bilateral shoulder replacementlow back fusionCervical xzvmucy1Gkszrolbvnsj
--- OUTSIDE RECORDS SUMMARY | 2025-04-17 09:06 | XMS_ITS | Clinical Summary ---
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 Name Role Phone Robert Cruz Primary Care Provider [phone] Allergies Active AllergyReactionsCriticalityNoted DateCommentsPovidone-IodineHives,Itching 10/20/2016Contrast PgcOlagterlfdrLvro57/07/2011Meperidine (Pf)Other: See DhvvcgctLuukik64/07/2011 hypotension DheOther: See Urkcajnv38/24/2017 Respiratory arrest Hydromorphone (Bulk)Other: See Fqophypx60/24/2017 resiratory arrest Sumatriptan YiclmsumhDdwzbHbnxab25/07/2011Influenza Vaccine Tri-Sp 09-10Hives Uchmhx3009/29/20104083VipqtKnrucqibxkcOdvsnf14/07/2011 Medications MedicationSigDispense QuantityRefillsLast FilledStart DateEnd DateStatus levothyroxine [...] by mouth daily before breakfast.Active rizatriptan (MAXALT REALTIME REPORTER) 10 mg disintegrating tablet DISSOLVE 1 TABLET IN MOUTH NEEDED FOR HEADACHE, MAY REPEAT IN 2 HOURS IF BKADKE261/07/2018Active mupirocin (BACTROBAN) 2 % ointment Apply 0.5 [...] without complication, without long-term current use of jivpdxc3906/07/2018OSA (obstructive sleep apnea) 06/07/2018Mixed dmcrljuiaovxfm29/13/2019Glenohumeral arthritis, right04/26/2018 Status post replacement of right shoulder joint04/26/2018Status post total shoulder zuedbynznasi07/09/2017Glenohumeral uzzpmptik74/24/2017Primary osteoarthritis of left negvpqfk22/24/2017 Family History Medical HistoryRelationCommentsCarotid DiseaseFatherDiabetesFatherHeartFather HypertensionFatherBreast CancerMaternal GrandmotherArthritisMothercholesterol MotherDiabetesPaternal GrandmotherStrokePaternal GrandmotherRelationStatus CommentsFatherMaternal GrandmotherMotherPaternal Grandmother Social History Tobacco UseTypesPacks/DayYears UsedDateSmoking Tobacco: NeverSmokeless Tobacco: NeverAlcohol UseStandard Drinks/WeekCommentsYes0 (1 standard drink = 0.6 oz pure alcohol)a few times a yearPHQ-2AnswerDate RecordedPHQ2 Ibpqj594Area Deprivation IndexAnswerDate RecordedNational Score (1-100), lower number is lower riskNot on file04/02/2020State Score (1-10), lower number is lower riskNot on file04/02/2020Data from: https://www.neighborhoodatlas.[facility]/. Last address used for calculationNot on file04/02/2020CommentsNoSex and Gender InformationValueDate RecordedSex Assigned at BirthNot on fileLegal Sex Nqkznp0703/26/2012 10:25 AM ESTGender IdentityNot on fileSexual OrientationNot on fileOccupationIndustryJob Start DateJob End DateRN - ambulatory surgeryNot on fileNot on fileNot on file Last Filed Vital Signs Vital SignReadingTime TakenCommentsBlood Gquefmcb694/47006/20/2018 3:44 PM EST Dnawa873306/20/2018 3:44 PM FBPOzsonpjlgwf96 ??C (98.6 ??F)06/20/2018 3:44 PM EST Respiratory Yvqo793506/20/2018 3:44 PM ESTOxygen Fisgtntfpr60%06/20/2018 3:44 PM ESTInhaled Oxygen Concentration--Mjnzqq54.6 kg (182 lb)06/20/2018 8:38 AM EST Asyckf229.5 cm (5' 2 )06/07/2018 10:31 AM ESTBody Mass Index33.29006/07/2018 10:31 AM EST Plan of Treatment Health MaintenanceDue DateLast DoneCommentsAnxiety Prkppawkr00/20/1977Depression Nqovgfuku10/20/1977HIV Wdqnrqrfi03/20/1977Hepatitis C Zwjxkuzov74/20/1977 DTaP,Tdap,Td Vaccine (1 - Tdap)1978Mammogram Qkjjzynpn42/20/1999CT Doclhzmhabpy49/20/2004Cologuard (FIT-DNA)04/13/20048896Dgruyircrmg02/20/2004 Colorectal Cancer Qdrvgfguh67/20/2004Fecal Occult Blood2004Lipid Screening 04/13/20049473Hsublhpnwqhrx72/20/2004Pneumococcal Vaccine: 50+ (1 of 1 - PCV) 2009Shingrix Vaccine (1 of 2)2009Diabetes Lidcqpdwr59/13/2022 06/07/2018, 10/20/2016Bone Density Ewjwirkwc44/20/2024dvance Directive Edsepgxmtm63/01/2025ovid-19 Vaccine (1 - 2024- season)2024Influenza Vaccine (#1)2024RSV Vaccine (1 - 1-dose 75+ series)2034 Medical Devices ImplantedTypeAreaManufacturerDevice IdentifierShelf Expiration DateModel / Serial / LotCement Simplex P Speedset Bone Radiopaque Sterile - [id number] Implanted:Qty: 1 on 06/20/2018 by [facility] / PuttyRight: Bone - ShoulderSTRY-HOW [id number] / / [id number]-[id number] Implant - [id number] Implanted:Qty: 1 [facility] Bone - Shoulder DJO [id number] / / [id number]-Sy-W-Mhih Implant - [id number] Implanted:Qty: 1 on 11/18/2016 [facility]: Bone - Shoulder DJO [id number] / / [id number] Poly Pegged Glenoid Implanted:Qty: 1 on 11/18/2016 [facility]: Bone - Shoulder DJO INC08/17/[id number] / [id number] / [id number] Humeral Stem, [id number] Implanted:Qty: 1 on 06/20/2018 by Avila Garsia MD at [facility] ImplantRight: Bone - ShoulderDJO [id number] / / [id number] Humeral Head [id number] Implanted:Qty: 1 on 06/20/2018 by Avila Garsia MD at [facility] ImplantRight: Bone - ShoulderDJO [id number] / / [id number] Hum Altivate - [id number] Implanted:Qty: 1 on 11/18/2016 [facility] Bone - ShoulderDJO INC//[id number] / / [id number] Ru Allpoly 42mm Eplus - [id number] Implanted:Qty: 1 on 06/20/2018 by Avila Garsia MD [facility] [place] [place]: Bone - ShoulderDJO INC//[id number] / / [id number] Hum Altivate - [id number] Implanted:Qty: 1 on 06/20/2018 by Avila Garsia MD at [facility] [place] [place]: Bone - ShoulderDJO INC06/06/[id number] / / [id number] Procedures Procedure NamePriorityDate/TimeAssociated DiagnosisCommentsBASIC METABOLIC PANEL Pqgkmfw2706/07/2018 11:00 AM EST Glenohumeral arthritis, right from Last 3 Months or Most Recently Relevant to Health Maintenance Results * (ABNORMAL) BASIC METABOLIC PNL (06/07/2018 11:00 AM EST)ComponentValueRef RangeTest MethodAnalysis TimePerformed AtPathologist SeklzpdfhEajpxjk801(H)74 - 99 mg/dL06/07/2018 8:31 PM ESTWO[facility] LABORATORYComment: The [place] Diabetes Association (ADA) provides guidance for cutoff [...] Standards of Medical Care in Diabetes 2016, [place] Diabetes Association. Diabetes Care. 2016.39(Suppl 1). BUN24(H)7 - 21 mg/dL06/07/2018 8:31 PM [facility] Creatinine0.910.58 - 0.96 mg/dL06/07/2018 8:31 PM [facility] CDPEOYJDPVOwmtyx501071 - 144 mmol/L06/07/2018 8:31 PM [facility] LABORATORYPotassium5.13.7 - 5.1 mmol/L06/07/2018 8:31 PM [facility] SCNEDYJFOFNgymkgcs35962 - 105 mmol/L06/07/2018 8:31 PM [facility] WFIYORHKGGHF07054 - 30 mmol/L06/07/2018 8:31 PM [facility] LABORATORYAnion Qxm903 - 18 mmol/L06/07/2018 8:31 PM [facility] LABORATORYCalcium9.68.5 - 10.2 mg/dL06/07/2018 8:31 PM [facility] LABORATORYeGFR->6002 8:31 PM [facility] LABORATORYeGFR-All Other Races>60.06/07/2018 8:31 PM [facility] LABORATORYComment: eGFR (Estimated GFR) Units of measure: [...] StatusAvila Garsia MDLABORATORYFinal ResultPerforming OrganizationAddressCity/State/ZIP CodePhone Number [facility] [address] [place] [address] from Last 3 Months or Most Recently Relevant to Health Maintenance Insurance Advance Directives TypeDate RecordedPatient RepresentativeExplanationAdvance Directive(s)11/18/2016 6:54 AM Care Teams Team MemberRelationshipSpecialtyStart DateEnd Date Robert Cruz DO [address] [place] [address] PCP - GeneralInternal Medicine05/17/18
[2025-04-17 10:00] LABS: Microalbum Creatinine Ratio Ur 40.2 mg/g (0.0-29.9)
[2025-04-17 10:06] LABS: Anion Gap 12.1; Blood Urea Nitrogen 16.0 mg/dL (7.0-18.0); Calcium 8.5 mg/dL (8.5-10.1); Carbon Dioxide 29.6 mmol/L (21.0-32.0); Chloride 104 mmol/L (98-107); Estimated GFR (African America >60 (>=60 mL/min/1.73m^2); Estimated GFR (Non-African Ame 55 (>=60 mL/min/1.73m^2); Glucose 125 mg/dL (74-106); Potassium 3.7 mmol/L (3.5-5.1); Sodium 142 mmol/L (136-145)
== END 2025-04-17 09:01 | disposition home or self-care (01) ==
LOC: LAB 09:03
PROVIDERS: PCP Internal Medicine; Visit Provider Internal Medicine
DX: I12.9 Hypertensive chronic kidney disease with stage 1 through stage 4 chronic kidney disease, or unspecified chronic kidney disease (principal); N18.9 Chronic kidney disease, unspecified
CPT/HCPCS: 36415; 80048; 82043; 82570